=== PATIENT | male | born 1985 | race African-American/Black ===

== ENCOUNTER 2020-01-02 20:55 | Emergency (ER) | payer BC, SELFPAY ==
[2020-01-02 20:59] VITALS: BP 157/105; PULSE 88; RESP 20; TEMP 36.8; O2SAT 100
--- NOTE | 2020-01-02 22:01 | ED.BACK ---
HPI - Back Pain/Injury General Chief Complaint: Back Pain/Injury Stated Complaint: lower back pain Time Seen by Provider: 01/02/20 21:47 Source: patient Mode of arrival: ambulatory Limitations: no limitations History of Present Illness HPI Narrative: This patient is a 34 year old male with history of hypertension and chronic back issues who presents for evaluation of right lower back pain. Patient states he developed right lower back pain getting out of his car today. This pain is non radiating and it is worse with bending and walking. He has not taken anything for his pain. He states he has had this pain many times in the past, and it resolves after he is given a shot of medication in ER. He denies associated nausea, vomiting, fever, chills, abdominal pain, leg weakness, numbness or tingling or urinary complaints. He also reports this morning he woke up with upper lip swelling . He noticed there is a painful bump in his mustache that he believes is a spider bite. He applied ice to his lip so his swelling has resolved. MD elicited complaint: back pain Related Data Home Medications Medication Instructions Recorded Confirmed amlodipine 01/02/20 losartan 01/02/20 Allergies Allergy/AdvReac Type Severity Reaction Status Date / Time No Known Allergies Allergy Verified 01/02/20 21:39 Review of Systems Review of Systems: All systems reviewed & are unremarkable except as noted in HPI and below Constitutional: Constitutional: Denies chills and Denies fever(s) Respiratory: Respiratory: Denies cough and Denies dyspnea Gastrointestinal: Gastrointestinal: Denies abdominal pain, Denies nausea and Denies vomiting Genitourinary: Genitourinary: Reports no additional male genitourinary complaints Musculoskeletal: Musculoskeletal: Reports back pain [facility] Past Medical History Medical History (Updated 01/03/20 @ 00:00 by Dahiana Dasilva) Hypertension Social History Social History (Updated 01/02/20 @ 22:26 by Zabrina Lainez MD) Alcohol intake: never Substance use: never Gender identity (if verbalized by the patient): Male Exam Const: General: alert Orientation/consciousness: patient oriented x3 HENMT: Head: normocephalic and atraumatic Face and sinus: face symmetric Mouth: Yes other (mild mid lip swelling , there is crusted papule mid lip in mustache) Throat: posterior oropharynx normal Eyes: EOM: EOMs intact bilaterally Resp: Effort & Inspection: normal respiratory effort and retractions GI: GI Palp: Yes Soft to palpation, No Tenderness to palpation present (GI), No Guarding due to palpation present (GI), No Rigid due to palpation and Yes No hepatosplenomegaly present Back/Spine/Pelvis: Back: no CVA tenderness Neuro: General: patient oriented x3 and moves all extremities Course Reevaluation(s) Reevaluation #1: I discussed with patient that he will be treated with Toradol as that is what he states he was given in the past that worked. Date: 01/02/20 Time: 22:28 Vital Signs Vital signs: Vital Signs Temperature 98.2 F 01/02/20 20:59 Pulse Rate 88 01/02/20 20:59 Respiratory Rate 20 01/02/20 20:59 Blood Pressure 157/105 H 01/02/20 20:59 Pulse Oximetry 100 01/02/20 20:59 Temperature 98.3 F 01/02/20 22:42 Pulse Rate 84 01/02/20 22:42 Respiratory Rate 18 01/02/20 22:42 Blood Pressure 144/94 H 01/02/20 22:42 Pulse Oximetry 98 01/02/20 22:42 Discharge Plan Discharge Clinical Impression: Strain of lumbar region, Folliculitis Patient Disposition: Home, Self-Care Condition: Stable Instructions: Antibiotic Form, Folliculitis (ED), Back Pain (ED) Additional Instructions: Apply the antibiotics ointment to your mustache. apply warm compress. Follow up with your primary care physician as needed. Prescriptions: New mupirocin 2 % ointment 1 applic TOPICAL TID Qty: 15 RF: 0 ibuprofen 800 mg tablet 800 mg PO TID ND
[2020-01-02] MEDS: KETOROLAC (*BKC) 60 MG/2 ML VIAL IM (22:12)
[2020-01-02] MEDS: diazePAM 5 MG TABLET PO (22:12)
[2020-01-02 22:42] VITALS: BP 144/94; PULSE 84; RESP 18; TEMP 36.8; O2SAT 98
== END 2020-01-02 22:44 | disposition home or self-care (01) ==
PROVIDERS: Emergency Provider General Practice; PCP Emergency Medicine
DX: S39.012A Strain of muscle, fascia and tendon of lower back, initial encounter (principal); X58.XXXA Exposure to other specified factors, initial encounter; L73.9 Follicular disorder, unspecified; I10 Essential (primary) hypertension
CPT/HCPCS: 96372; 99283; A9270; J1885

== ENCOUNTER 2020-12-03 09:04 | Outpatient (CLI) | payer BC, SELFPAY ==
--- NOTE | 2020-12-23 11:04 | WPDHOMESLEEP ---
Sleep Study - Home Unattended Date of Study: 12/03/20 Ordering Provider: Rancho Delcid APRN Interpreting Provider: Yuridia Fish MD Home Sleep Study Type: Apnea Link Air Height: 1.68 m Weight: 129.727 kg Body Mass Index: 46.1 Neck Circumference (inches): 19 [place]: 15 Reason for Sleep Study Witnessed apneas Sleep History Jaime Tyler junior is a 34-year-old man who says that he stops breathing during the night. This is been going on for 1-2 years. He rarely awakens from sleep feeling short of breath. He occasionally awakens at night with heartburn, belching or coughing. He he constantly snores loudly. He rarely has trouble sleeping with a cold. He occasionally wakes up gasping for breath at night. He frequently has breathing problems at night observed by others. He constantly sweats excessively at night. He occasionally has a pounding heartbeat at night. He frequently falls asleep during the day constantly falls asleep involuntarily and rarely falls asleep while driving. He occasionally falls asleep while exerting physical effort. He does not have loss of muscle tone with strong emotion. He occasionally has daytime difficulties due to his excessive sleepiness. He does not feel paralyzed on waking or falling asleep. He does not have vivid dreamlike scenes upon awakening or falling asleep and does not feel afraid to go to sleep. He rarely has nightmares. He constantly remembers his dreams. He occasionally has racing thoughts. He rarely feels sad or depressed. He occasionally has anxiety. He frequently has muscular tension, frequently notices parts of his body jerking and he frequently kicks at night. He does not have crawling or aching feelings in his legs, does not have any kind of leg pain at night. He denies morning jaw pain and does not grind his teeth during sleep. He is not bothered by pain during the day or awakened by pain at night. He rarely wakes up feeling stiff in the morning with sore achy muscles. He never wakes up with pain in the spine. He has headaches, fatigue, uses alcohol heavily and he takes drugs. Normal bedtime is 12 midnight taking 1 minute to fall asleep never waking during the night. He wakes in the morning at 5:00 a.m.. On the weekends his sleep schedule is different, going to bed at 3:00 a.m. and waking at 7:00 a.m.. He estimates getting 4-6 hours of sleep at night. He works a rotating shift. He does not take naps in the afternoon or evening. A short nap is not refreshing. He is drowsy after wakening for 3 hours or longer. He feels better in the afternoon compared to other times of day. Habits: Cigarettes a pack every 3 days. No caffeine. He does consume alcohol and recreational drugs. [facility] Past Medical History Medical History (Updated 12/23/20 @ 11:11 by Yuridia Fish MD) Depression Hypertension Family History Family History Unknown Hypertension Social History Social History (Updated 12/23/20 @ 11:08 by Yuridia Fish MD) Smoking packs per day: 1 Smoking cigarettes per day: 20.0 Years smoked: 12 Smoking pack-years: 12.00 Smoking status: Current every day smoker Tobacco type: cigarettes Alcohol intake: current Substance use: current Substance use type: marijuana Gender identity (if verbalized by the patient): Male Medications Home Medications Medication Instructions Recorded Confirmed Type amlodipine 01/02/20 09/20/20 History losartan 01/02/20 09/20/20 History Sleep Procedure This test was performed using 4 channel monitoring including respiratory effort channel, snoring channel, heart rate channel, and oxygen saturation channel. This study was scored using CMS guidelines. Sleep Architecture Not applicable for home sleep test. Respiratory Analysis Recording duration 7 hours 57 minutes. Evaluation duration 4 hours 16 minutes. The apnea-hypopnea index is 1
[2020-12-23 11:15] VITALS: BMI 46.1
== END 2020-12-04 10:14 | disposition home or self-care (01) ==
LOC: ANHCSM 09:06
PROVIDERS: PCP Emergency Medicine; Visit Provider Nurse Practitioner Family
DX: G47.10 Hypersomnia, unspecified (principal); R06.83 Snoring; G47.33 Obstructive sleep apnea (adult) (pediatric)
CPT/HCPCS: 95806

== ENCOUNTER 2022-02-27 10:37 | Emergency (ER) | payer BC, SELFPAY ==
--- NOTE | ~2022-02-27 | XR_ITS ---
EXAMINATION: XR G tube evaluation w imaging DATE: 02/27/2022 12:12 INDICATION: Gastrostomy tube replacement. TECHNIQUE: A supine view of the abdomen was obtained. COMPARISON: None. FINDINGS: The lower abdomen and right lateral aspect of the abdomen are excluded. There are no dilate d loops of bowel. There is a gastrostomy tube in expected position. There is contrast in the tube and in the stomach. IMPRESSION: 1. Gastrostomy tube in expected position. Reviewed, dictated and finalized at location A.
[2022-02-27 10:39] VITALS: BP 102/71; PULSE 83; RESP 18; O2SAT 93
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
[2022-02-27 11:20] VITALS: BP 119/89; PULSE 87; RESP 20; O2SAT 97
--- NOTE | 2022-02-27 12:32 | PC.NURSE ---
Report given to Rupa at [facility]
[2022-02-27 12:34] VITALS: BP 99/64; PULSE 84; RESP 16; O2SAT 98
== END 2022-02-27 12:52 ==
PROVIDERS: Emergency Provider Emergency Medicine
DX: Z43.1 Encounter for attention to gastrostomy (principal); G82.20 Paraplegia, unspecified; I10 Essential (primary) hypertension; G47.33 Obstructive sleep apnea (adult) (pediatric); F17.210 Nicotine dependence, cigarettes, uncomplicated
CPT/HCPCS: 49465; 99284

== ENCOUNTER 2022-04-12 18:44 | Emergency (ER) | payer BC, SELFPAY ==
[2022-04-12] VITALS (27 sets, daily range): BP systolic 95–138; BP diastolic 67–87; PULSE 80–94; RESP 12–27; TEMP 36.8–37.1; O2SAT 96–100
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
[2022-04-12 20:33] LABS: Influenza A QL RT-PCR Negative (Negative); Influenza B QL RT-PCR Negative (Negative); RSV RNA, RT-PCR Negative (Negative); SARS-CoV-2 RNA PCR Negative
--- NOTE | 2022-04-12 22:01 | PC.NURSE ---
Pt's mother Lyndsay notified of findings and report called to Tony at [phone] at [facility]
== END 2022-04-12 23:34 ==
PROVIDERS: Emergency Provider Emergency Medicine
DX: K56.41 Fecal impaction (principal); Z20.822 Contact with and (suspected) exposure to COVID-19; I10 Essential (primary) hypertension; G47.33 Obstructive sleep apnea (adult) (pediatric); G93.1 Anoxic brain damage, not elsewhere classified; G82.20 Paraplegia, unspecified; S06.9XAS Unspecified intracranial injury with loss of consciousness status unknown, sequela; F17.210 Nicotine dependence, cigarettes, uncomplicated; Z93.1 Gastrostomy status; W34.00XS Accidental discharge from unspecified firearms or gun, sequela
CPT/HCPCS: 74176; 87637; 99284

== ENCOUNTER 2022-07-06 10:22 | Emergency (ER) | payer BC, SELFPAY ==
--- NOTE | ~2022-07-06 | XR_ITS ---
G-tube check CLINICAL HISTORY: Verify G-tube placement FINDINGS: Maintenance Helper Utility Engineer image demonstrates nonspecific bowel gas pattern, with Gastrostomy tube overlying the upper abdomen. Subsequent image taken following administration of 40 cc of Omnipaque 350 G-tube demonstrates opacifi cation of the gastric lumen with delineation of rugal folds. No abnormal extravasation of contrast se en. IMPRESSION: Percutaneous gastrostomy tube is appropriately located within the gastric lumen. Reviewed, dictated and finalized at location . TIC SURGEON IMPRESSION: Percutaneous gastrostomy tube is appropriately located within the gastric lumen .
[2022-07-06 10:24] VITALS: BP 116/82; PULSE 83; RESP 13; TEMP 36.6; O2SAT 99
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
[2022-07-06 11:56] VITALS: BP 116/74; PULSE 78; RESP 17; O2SAT 100
== END 2022-07-06 12:15 ==
LOC: ANHED 11:44
PROVIDERS: Emergency Provider Emergency Medicine
DX: K94.23 Gastrostomy malfunction (principal); G82.20 Paraplegia, unspecified; I10 Essential (primary) hypertension; G47.33 Obstructive sleep apnea (adult) (pediatric); F17.210 Nicotine dependence, cigarettes, uncomplicated
CPT/HCPCS: 49450; 99284

== ENCOUNTER 2022-08-04 11:08 | Emergency (ER) | payer BC, SELFPAY ==
[2022-08-04] VITALS (19 sets, daily range): BP systolic 97–126; BP diastolic 75–101; PULSE 64–91; RESP 13–26; O2SAT 96–100
--- NOTE | ~2022-08-04 | XR_ITS ---
EXAMINATION: XR G tube evaluation w imaging INDICATION: Assess G-tube placement TECHNIQUE: Two supine views of the abdomen are obtained after the administration of 60 cc of Omnipaqu e 350 contrast. COMPARISON: 07/06/2022 FINDINGS: The gastrostomy appears to be within the body of the stomach. Contrast opacifies portions o f the stomach and proximal small bowel. IMPRESSION: 1. Gastrostomy appears to be within the stomach. Reviewed, dictated and finalized at location L.
--- NOTE | 2022-08-04 11:25 | PC.NURSE ---
Per DR. Lainez recieved orders to flush line, unable to aspirate at this time, 10ml flushed with no resistance. Dr. lainez aware at this time.
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
--- NOTE | 2022-08-04 12:57 | PC.NURSE ---
CAlled [facility] at this time at [phone]. Spoke with Humberto, staff who could not get a hold of nursing staff. Humberto stated she could write a note and speak with nurse. This RN told her pt G-tube placement is confirmed via xray, VSS, and facility can use g-tube as needed per Dr. Lainez.
== END 2022-08-04 13:35 ==
PROVIDERS: Emergency Provider General Practice; PCP Internal Medicine
DX: K94.29 Other complications of gastrostomy (principal); I10 Essential (primary) hypertension; G82.20 Paraplegia, unspecified; G47.33 Obstructive sleep apnea (adult) (pediatric); Z87.891 Personal history of nicotine dependence
CPT/HCPCS: 49465; 99284

== ENCOUNTER 2022-09-19 10:06 | Observation (INO) | payer BC, SELFPAY ==
[2022-09-19 10:08] VITALS: BP 136/84; PULSE 82; RESP 16; O2SAT 96
--- NOTE | 2022-09-19 10:37 | PC.NURSE ---
Pt severely contracted in BLE and BUE. Pt in non-verbal.
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
--- NOTE | 2022-09-19 12:00 | PC.NURSE ---
ED staff having difficulty obtaining IV access. HS and EDP made aware.
--- NOTE | 2022-09-19 12:47 | PC.NURSE ---
Admission Note: The patient,Jaime Tyler Jr.,36 y/o, was given written information regarding hospital policies, unit procedures and contact persons, PT unable to comprehend. PT on Room Air, assessment complete, will call Facility for medication list and history. Patient's smoking status: Former smoker.
[2022-09-19] MEDS: SODIUM CHLORIDE 0.9% IV 1,000 ML 100 ML IV CONT ×2 (12:49→23:40)
[2022-09-19 12:55] LABS: Basophils Percent Auto 0.3 % (0.2-1.2); Eosinophils Absolute Auto 0.5 K/mm3 (0-0.3); Eosinophils Percent Auto 6.8 % (0-4.4); Hematocrit 35.2 % (42.0-52.0); Hemoglobin 10.6 g/dL (14.0-18.0); Immature Granulocyte Absolute 0.01 K/mm3 (0.00-0.031); Immature Granulocyte Percent A 0.1 % (0-0.5); Lymphocytes Absolute Auto 1.38 K/mm3 (0.9-3.2); Lymphocytes Percent Auto 18.8 % (18.3-44.2); Mean Corpuscular HGB Conc 30.1 g/dl (32-36); Mean Corpuscular Hemoglobin 24.5 pg (26-34); Mean Corpuscular Volume 81.3 fl (80-100); Mean Platelet Volume 9.1 fl (7.4-10.4); Monocytes Absolute Auto 0.8 K/mm3 (0.1-0.6); Monocytes Percent Auto 11.2 % (2.6-8.5); Neutrophils Absolute Auto 4.6 K/mm3 (1.3-6.7); Neutrophils Percent Auto 62.8 % (45.5-73.1); Platelet Count Result 414 k/mm3 (150-375); Red Blood Count 4.33 M/mm3 (4.6-6.20); Red Cell Distribution Width 14.9 % (11.5-14.5); White Blood Count 7.4 K/mm3 (4.5-10.0)
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
[2022-09-19 13:10] LABS: Anion Gap 9 mmol/L (8-16); Blood Urea Nitrogen 20 mg/dL (9-20); Calcium 9.2 mg/dL (8.4-10.2); Carbon Dioxide 23 mmol/L (22-30); Chloride 105 mmol/L (98-107); Estimated Glomerular Filt Rate > 60; Glucose 82 mg/dL (65-110); Potassium 4.3 mmol/L (3.4-5.0); Sodium 137 mmol/L (137-145)
[2022-09-19 13:11] LABS: INR 1.1; Prothrombin Time 14.9 Seconds (11.1-14.7)
[2022-09-19 13:12] LABS: Partial Thromboplastin Time 37.5 SECONDS (22.3-36.8)
[2022-09-19 13:17] VITALS: BMI 30.2
[2022-09-19 14:00] VITALS: BP 129/81; PULSE 79; RESP 16; TEMP 36.8; O2SAT 97
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
[2022-09-19 21:34] VITALS: BP 105/69; PULSE 81; RESP 14; TEMP 37.4; O2SAT 93
[2022-09-19] MEDS: SCOPOLAMINE 1.5 MG PATCH 1 MG TRANSDERM (23:40)
[2022-09-19] MEDS: levETIRAcetam 1000MG/NACL100ML 1,000 MG/100 ML BAG 400 MG IVPB (23:51)
[2022-09-20 05:48] VITALS: BP 120/82; PULSE 65; RESP 14; TEMP 36.8; O2SAT 96
[2022-09-20 06:46] LABS: Anion Gap 9 mmol/L (8-16); Blood Urea Nitrogen 17 mg/dL (9-20); Carbon Dioxide 23 mmol/L (22-30); Chloride 108 mmol/L (98-107); Estimated CRCL calculation 143 ml/min; Estimated Glomerular Filt Rate > 60; Glucose 70 mg/dL (65-110); Magnesium 1.7 mg/dL (1.6-2.3); Potassium 4.1 mmol/L (3.4-5.0); Sodium 140 mmol/L (137-145)
[2022-09-20 07:01] LABS: Iron 24 ug/dL (49-181)
[2022-09-20 07:10] LABS: Percent Iron Saturation 6 % (20-50)
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
[2022-09-20 07:25] LABS: Thyroid Stimulating Hormone Reflex 0.674 uIU/mL (0.465-4.68)
[2022-09-20 07:51] LABS: Folic Acid > 20.0 ng/mL (2.76->20)
[2022-09-20] MEDS: SODIUM CHLORIDE 0.9% IV 1,000 ML 100 ML IV CONT (09:01)
[2022-09-20] MEDS: levETIRAcetam 1000MG/NACL100ML 1,000 MG/100 ML BAG 400 MG IVPB ×2 (09:01→20:23)
[2022-09-20] MEDS: PANTOPRAZOLE SODIUM IV 40 MG VIAL IV PUSH (09:02)
[2022-09-20 14:00] VITALS: BP 150/86; PULSE 83; RESP 18; TEMP 36.8; O2SAT 93
--- NOTE | 2022-09-20 19:28 | WPDGIPROGNO ---
Progress Note: A&P Assessment and Plan (1) Dislodged gastrostomy tube: Code(s): T85.528A - Displacement of other gastrointestinal prosthetic devices, implants and grafts, initial encounter Status: Acute Assessment and Plan: egd with placement of new g-tube tomorrow no- (2) Neurological dysfunction: Code(s): R29.90 - Unspecified symptoms and signs involving the nervous system Status: Acute Assessment and Plan: non-verbal requires full care (3) Hypertension: Qualifiers: Hypertension type: primary hypertension Qualified Code(s): I10 - Essential (primary) hypertension Code(s): I10 - Essential (primary) hypertension Status: Chronic (4) Paraplegia: Code(s): G82.20 - Paraplegia, unspecified Status: Acute Subjective Date/time seen: 09/20/22 19:28 Interval history: no changes Review of Systems Review of Systems: ROS unobtainable: Yes unobtainable due to mental status Exam Const: Limitations: physical limitations Other: patient nonverbal. eyes open HENMT: Head: normal to inspection Eyes: EOM: EOMs intact bilaterally Neck: Other: old trach Resp: Effort & Inspection: normal respiratory effort Auscultation: clear to auscultation bilaterally Cardio: Rate: regular rate Rhythm: regular rhythm Heart sounds: no murmurs GI: GI Palp: Yes Soft to palpation, No Tenderness to palpation present (GI), No Guarding due to palpation present (GI) and No Rigid due to palpation Auscultation: normal bowel sounds Other: small gastrostomy site with minimal old blood Skin: General skin exam: normal color Neuro: Other: contractures, no movement Extrem: Other: right arm, right leg contractures Objective Data Vital Signs Vital Signs: Vital Signs - 24 hr 09/19/22 21:34 09/19/22 20:00 09/20/22 05:48 Temperature 99.4 F 98.3 F Pulse Rate 81 65 Respiratory Rate 14 14 Blood Pressure 105/69 120/82 Pulse Oximetry 93 96 Oxygen Delivery Room Air 09/20/22 08:00 09/20/22 14:00 Temperature 98.3 F Pulse Rate 83 Respiratory Rate 18 Blood Pressure 150/86 H Pulse Oximetry 93 Oxygen Delivery Room Air Intake/Output Intake/Output: Intake & Output 09/17/22 09/18/22 09/19/22 09/20/22 23:59 23:59 23:59 23:59 Intake Total 1000 1200 Balance 1000 1200 Meds/Results Medications: Active Medications Generic Name Dose Route Start Last Admin Trade Name Freq PRN Reason Stop Dose Admin Sodium Chloride 1,000 mls @ 100 mls/hr 09/19/22 11:00 09/20/22 09:01 Normal Saline Iv IV CONT 100 mls/hr .Q10H JESSA Administration Levetiracetam 1,000 mg in 100 mls @ 400 mls/hr 09/19/22 22:25 09/20/22 09:16 Keppra Iv IVPB Infused Q12HR JESSA Infusion Ondansetron HCl 4 mg 09/19/22 10:56 Ondansetron Inj 4 Mg/2 Ml Vial IV PUSH Q4H PRN Nausea Pantoprazole Sodium 40 mg 09/20/22 09:00 09/20/22 09:02 Pantoprazole Sodium Iv 40 Mg Vial IV PUSH 40 mg QAM JESSA Administration Scopolamine 1 mg 09/19/22 22:25 09/19/22 23:40 Scopolamine 1.5 Mg Patch TRANSDERM 1 mg Q72HR JESSA Administration Labs Labs: Laboratory Results - last 24 hr 09/20/22 05:53 Sodium 140 Potassium 4.1 Chloride 108 H Carbon Dioxide 23 Anion Gap 9 BUN 17 Creatinine 0.70 Estim Creat Clear Calc 143 Estimated GFR > 60 Glucose 70 Calcium 9.0 Magnesium 1.7 Iron 24 L TIBC 375 % Saturation 6 L Ferritin 19.10 Vitamin B12 942.0 H Folate > 20.0 H TSH (Reflex) 0.674 Amg Follow-up Billing Hospital Follow-up Hospital Follow-up: [id number] [facility] Mod
[2022-09-20 22:00] VITALS: BP 164/83; PULSE 78; RESP 14; O2SAT 98
[2022-09-21] VITALS (12 sets, daily range): BP systolic 114–185; BP diastolic 68–105; PULSE 53–89; RESP 14–28; TEMP 36.4–36.7; O2SAT 95–100; BMI 34.0
[2022-09-21] MEDS: SODIUM CHLORIDE 0.9% IV 1,000 ML 100 ML IV CONT ×2 (04:47→20:14)
[2022-09-21 06:31] LABS: Basophils Percent Auto 0.7 % (0.2-1.2); Eosinophils Absolute Auto 0.2 K/mm3 (0-0.3); Eosinophils Percent Auto 3.1 % (0-4.4); Hematocrit 32.8 % (42.0-52.0); Hemoglobin 9.7 g/dL (14.0-18.0); Immature Granulocyte Absolute 0.01 K/mm3 (0.00-0.031); Immature Granulocyte Percent A 0.2 % (0-0.5); Lymphocytes Absolute Auto 1.39 K/mm3 (0.9-3.2); Lymphocytes Percent Auto 22.8 % (18.3-44.2); Mean Corpuscular HGB Conc 29.6 g/dl (32-36); Mean Corpuscular Hemoglobin 24.3 pg (26-34); Mean Platelet Volume 9.5 fl (7.4-10.4); Monocytes Absolute Auto 0.7 K/mm3 (0.1-0.6); Neutrophils Absolute Auto 3.8 K/mm3 (1.3-6.7); Neutrophils Percent Auto 62.2 % (45.5-73.1); Platelet Count Result 385 k/mm3 (150-375); Red Cell Distribution Width 14.7 % (11.5-14.5); White Blood Count 6.1 K/mm3 (4.5-10.0)
[2022-09-21 06:36] LABS: Alanine Aminotransferase 23 U/L (6-50); Albumin Level 3.8 g/dL (3.5-5.1); Alkaline Phosphatase 110 U/L (38-126); Anion Gap 12 mmol/L (8-16); Aspartate Amino Transferase 20 U/L (17-59); Bilirubin,Total 0.6 mg/dL (0.2-1.3); Blood Urea Nitrogen 15 mg/dL (9-20); Carbon Dioxide 20 mmol/L (22-30); Chloride 108 mmol/L (98-107); Estimated CRCL calculation 145 ml/min; Estimated Glomerular Filt Rate > 60; Glucose 65 mg/dL (65-110); Magnesium 1.6 mg/dL (1.6-2.3); Sodium 140 mmol/L (137-145)
[2022-09-21 07:08] LABS: Burr Cells 1+ (NORMAL); Hypochromasia 1+ (NORMAL); Platelet Estimate Adequate (Adequate); Schistocytes None Seen (NORMAL)
[2022-09-21] MEDS: levETIRAcetam 1000MG/NACL100ML 1,000 MG/100 ML BAG 400 MG IVPB ×2 (08:58→20:14)
[2022-09-21] MEDS: PANTOPRAZOLE SODIUM IV 40 MG VIAL IV PUSH (08:59)
[2022-09-21] MEDS: MAGNESIUM SULF 4 GM/WATER100ML 4 GM/100 ML BAG IVPB (10:30)
[2022-09-21] MEDS: LACTATED RINGERS 1,000 ML 150 ML IV CONT (12:46)
--- NOTE | 2022-09-21 13:04 | WPDANESEPPF ---
Anes - Initial Pre Proc Eval Procedure: Operation Date: 09/21/22 13:45 Proposed Procedures p Percutaneous Endoscopic Gastrostomy - Juan A Hall MD Date/Time: 09/21/22 13:04 Surgeon: Marilee Yoo DO Pre Op Diagnosis: g-tube dislodgement Patient Data Age: 36 Gender: M Height: 1.73 m Weight: 101.4 kg Last Vital Signs Temp 97.8 F 09/21/22 12:44 Pulse 83 09/21/22 12:44 Resp 18 09/21/22 12:44 BP 153/95 H 09/21/22 12:44 Pulse Ox 97 09/21/22 12:44 O2 Del Method Room Air 09/21/22 12:44 Allergies Allergy/AdvReac Type Severity Reaction Status Date / Time No Known Allergies Allergy Verified 09/21/22 12:42 Home Medications Medication Instructions Recorded Confirmed Type acetaminophen 1,000 mg oral powder See Rx Instructions .Route 09/19/22 09/19/22 History packet .COMPLEX PRN pain aspirin 81 mg G-tube DAILY 09/19/22 09/19/22 History bisacodyl 5 mg rectal suppository 10 mg RECTAL DAILY PRN Constipation 09/19/22 09/19/22 History carvedilol 12.5 mg tablet 12.5 mg feeding tube BID 09/19/22 09/19/22 History chlorhexidine gluconate 0.12 % 1 applic mucous membrane Q4H 09/19/22 09/19/22 History mouthwash docusate sodium 50 mg/5 mL oral 100 mg feeding tube BID 09/19/22 09/19/22 History liquid famotidine 20 mg tablet 20 mg feeding tube Q12H 09/19/22 09/19/22 History glycopyrrolate 1 mg tablet 1 mg feeding tube Q8H 09/19/22 09/19/22 History lansoprazole 30 mg delayed 30 mg feeding tube DAILY 09/19/22 09/19/22 History release,disintegrating tablet levetiracetam 100 mg/mL oral 1,000 mg feeding tube Q12H 09/19/22 09/19/22 History solution (Keppra) nadolol 40 mg tablet 40 mg feeding tube Q12H 09/19/22 09/19/22 History lcimtsid-jaowpvtwqw-sjwnotvcr 1 applic topical DAILY 09/19/22 09/19/22 History topical packet ondansetron 4 mg disintegrating 4 mg feeding tube Q6H PRN Nausea 09/19/22 09/19/22 History tablet And Vomiting polyethylene glycol 3350 17 17 g feeding tube DAILY 09/19/22 09/19/22 History gram/dose oral powder (Miralax) Constipation psyllium husk 3 gram/5.4 gram oral See Rx Instructions .Route .COMPLEX 09/19/22 09/19/22 History powder (Reguloid (psyllium husk)) scopolamine base 1 mg over 3 days 1 patch topical Q3-4D 09/19/22 09/19/22 History transdermal patch sennosides 8.6 mg tablet (senna) 8.6 mg feeding tube DAILY 09/19/22 09/19/22 History simethicone 125 mg chewable tablet 125 mg PO QID PRN Gastrointestinal 09/19/22 09/19/22 History Spasms Or Cramping Laboratory Tests 09/21/22 05:52 WBC 6.1 K/mm3 (4.5-10.0) RBC 4.00 L M/mm3 (4.6-6.20) Hgb 9.7 L g/dL (14.0-18.0) Hct 32.8 L % (42.0-52.0) MCV 82.0 fl (80-100) MCH 24.3 L pg (26-34) MCHC 29.6 L g/dl (32-36) RDW 14.7 H % (11.5-14.5) Plt Count 385 H k/mm3 (150-375) MPV 9.5 fl (7.4-10.4) Immature Gran % (Auto) 0.2 % (0-0.5) Neut % (Auto) 62.2 % (45.5-73.1) Lymph % (Auto) 22.8 % (18.3-44.2) Hopkins % (Auto) 11.0 H % (2.6-8.5) Eos % (Auto) 3.1 % (0-4.4) Baso % (Auto) 0.7 % (0.2-1.2) Lymph # (Auto) 1.39 K/mm3 (0.9-3.2) Hopkins # (Auto) 0.7 H K/mm3 (0.1-0.6) Eos # (Auto) 0.2 K/mm3 (0-0.3) Baso # (Auto) 0.0 K/mm3 (0.0-0.1) Abs Immat Gran (auto) 0.01 K/mm3 (0.00-0.031) Absolute Neuts (auto) 3.8 K/mm3 (1.3-6.7) Absolute Nucleated RBC 0.0 K/mm3 (0.0-0.012) Nucleated RBC % 0.0 % (0.0-0.2) Platelet Estimate Adequate (Adequate) Hypochromasia 1+ (NORMAL) Tabitha Cells 1+ (NORMAL) Schistocytes None seen (NORMAL) Sodium 140 mmol/L (137-145) Potassium 4.0 mmol/L (3.4-5.0) Chloride 108 H mmol/L (98-107) Carbon Dioxide 20 L mmol/L (22-30) Anion Gap 12 mmol/L (8-16) BUN 15 mg/dL (9-20) Creatinine 0.70 mg/dL (0.7-1.3) Estim Creat Clear Calc 145 ml/min Estimated GFR > 60 (59 - ) Glucose 65
[2022-09-21] MEDS: ceFAZolin SODIUM 1 GM VIAL IV PUSH (13:16)
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
--- NOTE | 2022-09-21 19:36 | PC.NURSE ---
New gtube placed today. Order to restart tube feeding at 1999 at 55ml/hr. Called Tatianna Syed to clarify order. No starting rate or rate increase orders in patients chart. Verbal orders by Tatianna to start jevity 1.5 at 10ml/hr and increase 10 mls every 4 hrs as tolerated until goal rate of 55ml/hr is reached.
[2022-09-21] MEDS: FAMOTIDINE 20 MG TABLET FEED TUBE (20:15)
[2022-09-21] MEDS: carvediloL 12.5 MG TABLET FEED TUBE (20:15)
[2022-09-21] MEDS: DOCUSATE SODIUM LIQ 100 MG/10 ML UDC FEED TUBE (20:15)
[2022-09-21] MEDS: nadoloL 20 MG TABLET 40 MG FEED TUBE (20:15)
--- NOTE | 2022-09-22 00:12 | PC.NURSE ---
Pt has been tolerating tube feeding at 10ml/hr. Tube feeding increased to 20ml/hr per verbal orders from Tatianna Syed. Will check tube feeding status at 0400 to increase rate by 10ml/hr if tolerating well.
[2022-09-22 00:25] LABS: Glucose Point of Care 80 mg/dl (65-105)
[2022-09-22 04:30] VITALS: BP 173/98; PULSE 91; RESP 28; TEMP 36.4; O2SAT 98
[2022-09-22 06:39] LABS: Glucose Point of Care 88 mg/dl (65-105)
[2022-09-22 06:43] LABS: Basophils Percent Auto 0.4 % (0.2-1.2); Eosinophils Absolute Auto 0.1 K/mm3 (0-0.3); Eosinophils Percent Auto 1.4 % (0-4.4); Hematocrit 31.7 % (42.0-52.0); Hemoglobin 9.7 g/dL (14.0-18.0); Immature Granulocyte Absolute 0.01 K/mm3 (0.00-0.031); Immature Granulocyte Percent A 0.1 % (0-0.5); Lymphocytes Absolute Auto 0.98 K/mm3 (0.9-3.2); Lymphocytes Percent Auto 13.4 % (18.3-44.2); Mean Corpuscular HGB Conc 30.6 g/dl (32-36); Mean Corpuscular Hemoglobin 24.4 pg (26-34); Mean Corpuscular Volume 79.6 fl (80-100); Mean Platelet Volume 8.8 fl (7.4-10.4); Monocytes Absolute Auto 0.8 K/mm3 (0.1-0.6); Monocytes Percent Auto 11.2 % (2.6-8.5); Neutrophils Absolute Auto 5.4 K/mm3 (1.3-6.7); Neutrophils Percent Auto 73.5 % (45.5-73.1); Platelet Count Result 365 k/mm3 (150-375); Red Blood Count 3.98 M/mm3 (4.6-6.20); Red Cell Distribution Width 14.7 % (11.5-14.5); White Blood Count 7.3 K/mm3 (4.5-10.0)
[2022-09-22] MEDS: SODIUM CHLORIDE 0.9% IV 1,000 ML 100 ML IV CONT (06:52)
[2022-09-22 06:57] LABS: Alanine Aminotransferase 20 U/L (6-50); Albumin Level 3.7 g/dL (3.5-5.1); Alkaline Phosphatase 114 U/L (38-126); Anion Gap 11 mmol/L (8-16); Aspartate Amino Transferase 18 U/L (17-59); Bilirubin,Total 0.4 mg/dL (0.2-1.3); Blood Urea Nitrogen 12 mg/dL (9-20); Calcium 8.7 mg/dL (8.4-10.2); Carbon Dioxide 20 mmol/L (22-30); Chloride 108 mmol/L (98-107); Estimated CRCL calculation 143 ml/min; Estimated Glomerular Filt Rate > 60; Glucose 106 mg/dL (65-110); Magnesium 1.9 mg/dL (1.6-2.3); Potassium 3.7 mmol/L (3.4-5.0); Sodium 139 mmol/L (137-145)
--- NOTE | 2022-09-22 07:05 | WPDANESPN ---
Anes - Prog Note Post-Op Date/Time: 09/22/22 07:05 Cardiovascular status: normal Respiratory status: normal Airway patency: baseline Mental status: baseline Post-Op hydration status: normal Vital Signs: Last Vital Signs Temp 97.5 F L 09/22/22 04:30 Pulse 91 09/22/22 04:30 Resp 28 H 09/22/22 04:30 BP 173/98 H 09/22/22 04:30 Pulse Ox 98 09/22/22 04:30 O2 Del Method Room Air 09/21/22 20:00 Pain Score (VAS): 0 I/O: Intake & Output 09/21/22 09/21/22 09/22/22 15:59 23:59 07:59 Intake Total 1200 1000 Balance 1200 1000 Laboratory Tests 09/22/22 06:25 09/22/22 06:25 09/21/22 09/21/22 09/22/22 05:52 23:55 06:00 WBC 6.1 RBC 4.00 L Hgb 9.7 L Hct 32.8 L MCV 82.0 MCH 24.3 L MCHC 29.6 L RDW 14.7 H Plt Count 385 H MPV 9.5 Immature Gran % (Auto) 0.2 Neut % (Auto) 62.2 Lymph % (Auto) 22.8 Isabela % (Auto) 11.0 H Eos % (Auto) 3.1 Baso % (Auto) 0.7 Lymph # (Auto) 1.39 Isabela # (Auto) 0.7 H Eos # (Auto) 0.2 Baso # (Auto) 0.0 Abs Immat Gran (auto) 0.01 Absolute Neuts (auto) 3.8 Absolute Nucleated RBC 0.0 Nucleated RBC % 0.0 Platelet Estimate Adequate Hypochromasia 1+ Tabitha Cells 1+ Schistocytes None seen Sodium Potassium Chloride Carbon Dioxide Anion Gap BUN Creatinine Estim Creat Clear Calc Estimated GFR Glucose POC Capillary Glucose 80 88 Calcium Magnesium Total Bilirubin AST ALT Alkaline Phosphatase Total Protein Albumin 09/22/22 06:25 WBC 7.3 RBC 3.98 L Hgb 9.7 L Hct 31.7 L MCV 79.6 L MCH 24.4 L MCHC 30.6 L RDW 14.7 H Plt Count 365 MPV 8.8 Immature Gran % (Auto) 0.1 Neut % (Auto) 73.5 H Lymph % (Auto) 13.4 L Isabela % (Auto) 11.2 H Eos % (Auto) 1.4 Baso % (Auto) 0.4 Lymph # (Auto) 0.98 Isabela # (Auto) 0.8 H Eos # (Auto) 0.1 Baso # (Auto) 0.0 Abs Immat Gran (auto) 0.01 Absolute Neuts (auto) 5.4 Absolute Nucleated RBC 0.0 Nucleated RBC % 0.0 Platelet Estimate Hypochromasia Tabitha Cells Schistocytes Sodium 139 Potassium 3.7 Chloride 108 H Carbon Dioxide 20 L Anion Gap 11 BUN 12 Creatinine 0.70 Estim Creat Clear Calc 143 Estimated GFR > 60 Glucose 106 POC Capillary Glucose Calcium 8.7 Magnesium 1.9 Total Bilirubin 0.4 AST 18 ALT 20 Alkaline Phosphatase 114 Total Protein 7.0 Albumin 3.7 Post-procedural complaints: none Patient Feedback: Patient satisfied with anesthetic care.
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
[2022-09-22] MEDS: DOCUSATE SODIUM LIQ 100 MG/10 ML UDC FEED TUBE (09:23)
[2022-09-22] MEDS: FAMOTIDINE 20 MG TABLET FEED TUBE (09:23)
[2022-09-22 09:24] VITALS: PULSE 91
[2022-09-22] MEDS: SCOPOLAMINE 1.5 MG PATCH 1 MG TRANSDERM (09:24)
[2022-09-22] MEDS: nadoloL 20 MG TABLET 40 MG FEED TUBE (09:24)
[2022-09-22] MEDS: carvediloL 12.5 MG TABLET FEED TUBE (09:24)
[2022-09-22] MEDS: PANTOPRAZOLE SODIUM IV 40 MG VIAL IV PUSH (09:25)
[2022-09-22] MEDS: levETIRAcetam 1000MG/NACL100ML 1,000 MG/100 ML BAG 400 MG IVPB (09:26)
[2022-09-22] MEDS: FERROUS SULFATE LIQUID 325 MG/7.4 ML ELIXIR PO (09:32)
[2022-09-22 11:01] LABS: EDCOVIDSCREEN Negative (Negative)
--- NOTE | 2022-09-22 11:34 | PCNFU ---
Nutrition Follow-Up Complete: Inadequate energy intake related to NPO status, replacement of dislodged PEG tube as evidenced by need for full tube feeding. Goal:Tolerate tube feeding at goal rate Pt is meeting goal. Pt current nutrition is Jevity 1.5 @ 55ml/hr, 300ml flush q 4 hrs. Nutrition recommendation: continue with current plan of care Last recorded weight is 99.1 kg. Bowel Motility: +BM 09/22 Labs Reviewed: Hgb:9.7, HCT:31.7 Meds Noted: protonix, zofran Skin: WNL Additional Notes: Pt continues on tube feedings. Tolerating and providing 1815kcals, 77g protein, 2917ml free water. Agree with orders. Monitoring tolerance, plan of care Follow up Wednesday and Wednesday per policy
[2022-09-22 11:46] LABS: Glucose Point of Care 127 mg/dl (65-105)
== END 2022-09-22 13:30 ==
LOC: ANHED 10:13 → ANH3MEDSUR 18:09
PROVIDERS: Internal Medicine Gastroenterology; Nurse Practitioner; Physician Assistant; Admitting Provider Student in an Organized Health Care Education/Training Program; Emergency Provider Emergency Medicine; PCP Internal Medicine; Visit Provider Chiropractor
PROC: 0DH63UZ Insertion of Feeding Device into Stomach, Percutaneous Approach (ICD-10-PCS; CPT 43246; principal; 2022-09-21 13:45)
DX: T85.528A Displacement of other gastrointestinal prosthetic devices, implants and grafts, initial encounter (principal); D64.9 Anemia, unspecified; I10 Essential (primary) hypertension; R29.90 Unspecified symptoms and signs involving the nervous system; I69.320 Aphasia following cerebral infarction; G82.20 Paraplegia, unspecified; Z87.828 Personal history of other (healed) physical injury and trauma; Z98.890 Other specified postprocedural states; F32.A Depression, unspecified; G47.33 Obstructive sleep apnea (adult) (pediatric); Z87.891 Personal history of nicotine dependence; Z79.1 Long term (current) use of non-steroidal anti-inflammatories (NSAID); Z79.82 Long term (current) use of aspirin; Z79.899 Other long term (current) drug therapy; Z82.49 Family history of ischemic heart disease and other diseases of the circulatory system
CPT/HCPCS: 36415; 43246; 80048; 80053; 82607; 82728; 82746; 82948; 83540; 83550; 83735; 84443; 85025; 85610; 85730; 87426; 96361; 96365; 96366; 96374; 96375; 96376; 99285; A4248; A9270; C9113; C9803; G0378; G0379; J0690; J1953; J2001; J2704; J3475; J7030; J7120

== ENCOUNTER 2023-05-12 21:06 | Inpatient (IN) | payer BC, SELFPAY ==
--- NOTE | ~2023-05-12 | XR_ITS ---
Portable chest x-ray Comparison: 05/17/2023 Clinical History: Pneumonia Findings: There is mild haziness in the right midlung. Left lung clear. Cardiomediastinal silhouett e is stable. Bones and soft tissues are unremarkable. Impression: Mild haziness right midlung, which could reflect subtle pneumonia. Reviewed, dictated and finalized at location . USSION TUNER Impression: Mild haziness right midlung, which could reflect subtle pneumonia.
--- NOTE | ~2023-05-12 | CT_ITS ---
EXAMINATION: CT chest abdomen pelvis w con DATE: 05/12/2023 23:14 INDICATION: N/V, aspiration . TECHNIQUE: Computed tomography (CT) of the chest, abdomen, and pelvis was performed with 100 mL Omnip aque-350 intravenous contrast. Automated exposure control and iterative reconstruction technique were employed. The dose-length product was 1697.09 mGy-cm. COMPARISON: CT abdomen pelvis 04/12/2022 FINDINGS: Exam limited by nonstandard positioning and respiratory motion. CHEST: Thoracic aorta: No significant dilation or calcification. Lung parenchyma and airways: Motion artifact. Minimal dependent atelectasis. No airway debris. Old tr acheostomy tract. Thoracic inlet, axillae and chest wall: No thyroid or soft tissue mass. No axillary lymphadenopathy. Mediastinum: No mass or lymphadenopathy. Heart and pericardium: Normal heart size. No pericardial effusion. Coronary artery calcifications: . Pleura: No effusion or mass. Thoracic bones: No acute osseous finding in the chest. ABDOMEN/PELVIS: Liver: Normal. Biliary/Gallbladder: Gallbladder is partially contracted without inflammatory change. No bile duct di lation. Pancreas: No mass or duct dilation. Spleen: Normal. Adrenals:No mass. Kidneys: Simple 1.8 cm right upper pole cyst, partially obscured by motion artifact. No obstructing c alcification. No hydronephrosis. GI tract: G-tube, in good position. Uncomplicated appearing small bowel anastomosis. The rectum is di lated up to 9 cm by formed stool. A separate focus of feces dilates the distal sigmoid to 5.4 cm. No wall thickening or surrounding inflammatory change. No small bowel dilation. The appendix is not conf idently visualized. Mesentery/Peritoneum: No ascites, mass, or free air. Retroperitoneum: No mass Pelvis: Pelvic organs are within normal limits Soft Tissues: Anterior abdominal wall diastases containing unobstructed bowel. Abdominopelvic bones: No acute osseous finding in the abdomen/pelvis. IMPRESSION: Minimal dependent atelectasis. Fecal impaction. Reviewed, dictated and finalized at location K. ACTOR
--- NOTE | ~2023-05-12 | XR_ITS ---
EXAMINATION: XR chest 1V portable DATE: 05/17/2023 05:30 INDICATION: Shortness of breath. TECHNIQUE: A single frontal view of the chest was obtained on 2 radiographs. COMPARISON: Chest 2 views 01/17/2016, chest CT 05/12/2023 FINDINGS: The patient is rotated to his right. There is elevation of right hemidiaphragm. There is mi ld atelectasis at right lung base. No pleural effusion or pneumothorax. The heart size is normal. IMPRESSION: 1. Elevation of right hemidiaphragm with mild atelectasis at right lung base. Reviewed, dictated and finalized at location A. IT ASSOCIATE
--- NOTE | ~2023-05-12 | XR_ITS ---
EXAMINATION: XR chest 1V portable INDICATION: History of pneumonia TECHNIQUE: Portable AP chest at 1400 hours COMPARISON: 05/21/2023 FINDINGS: The lungs are free of acute opacities. No pleural effusion or pneumothorax. The cardiomedia stinal silhouette is normal. IMPRESSION: 1. No acute cardiopulmonary abnormality. Reviewed, dictated and finalized at location F. TRIC SWITCH REPAIRER
[2023-05-12 21:37] VITALS: BP 159/99; PULSE 102; RESP 20; TEMP 36.6; O2SAT 94
[2023-05-12] MEDS: ONDANSETRON INJ 4 MG/2 ML VIAL IV PUSH (22:16)
[2023-05-12] MEDS: SODIUM CHLORIDE 0.9% IV 1,000 ML 999 ML IV CONT (22:16)
[2023-05-12 22:25] LABS: Basophils Percent Auto 0.6 % (0.2-1.2); Eosinophils Absolute Auto 0.2 K/mm3 (0-0.3); Eosinophils Percent Auto 2.7 % (0-4.4); Hematocrit 43.8 % (42.0-52.0); Hemoglobin 13.5 g/dL (14.0-18.0); Immature Granulocyte Absolute 0.02 K/mm3 (0.00-0.031); Immature Granulocyte Percent A 0.3 % (0-0.5); Lymphocytes Percent Auto 21.1 % (18.3-44.2); Mean Corpuscular HGB Conc 30.8 g/dl (32-36); Mean Corpuscular Hemoglobin 24.6 pg (26-34); Mean Corpuscular Volume 79.9 fl (80-100); Mean Platelet Volume 9.5 fl (7.4-10.4); Monocytes Absolute Auto 0.7 K/mm3 (0.1-0.6); Monocytes Percent Auto 10.4 % (2.6-8.5); Neutrophils Absolute Auto 4.3 K/mm3 (1.3-6.7); Neutrophils Percent Auto 64.9 % (45.5-73.1); Platelet Count Result 372 k/mm3 (150-375); Red Blood Count 5.48 M/mm3 (4.6-6.20); Red Cell Distribution Width 14.5 % (11.5-14.5); White Blood Count 6.6 K/mm3 (4.5-10.0)
[2023-05-12 22:35] VITALS: BP 146/102; RESP 22; O2SAT 96
[2023-05-12 22:37] LABS: Alanine Aminotransferase 16 U/L (6-50); Albumin Level 4.2 g/dL (3.5-5.1); Alkaline Phosphatase 133 U/L (38-126); Anion Gap 9 mmol/L (8-16); Aspartate Amino Transferase 24 U/L (17-59); Bilirubin,Total 0.4 mg/dL (0.2-1.3); Blood Urea Nitrogen 16 mg/dL (9-20); Calcium 9.7 mg/dL (8.4-10.2); Carbon Dioxide 24 mmol/L (22-30); Chloride 104 mmol/L (98-107); Estimated Glomerular Filt Rate > 60; Glucose 92 mg/dL (65-110); Lipase 198 U/L (23-300); Potassium 3.9 mmol/L (3.4-5.0); Sodium 137 mmol/L (137-145)
[2023-05-12 22:38] LABS: Lactic Acid Reflex 0.8 mmol/L (0.7-2.0)
[2023-05-12 23:00] LABS: Influenza A QL RT-PCR Negative (Negative); Influenza B QL RT-PCR Negative (Negative); RSV RNA, RT-PCR Negative (Negative); SARS-CoV-2 RNA PCR Negative (Negative)
[2023-05-13] VITALS (48 sets, daily range): BP systolic 100–148; BP diastolic 71–106; PULSE 77–126; RESP 11–29; TEMP 36.4–36.9; O2SAT 90–100
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
[2023-05-13] MEDS: SODIUM CHLORIDE 0.9% IV 1,000 ML 999 ML IV CONT (00:48)
[2023-05-13] MEDS: AMPICILLIN SULB 3 GM/NS 100 ML 3 GM/100 ML VIAL IVPB ×4 (00:49→18:51)
[2023-05-13 01:46] LABS: Appearance Urine Clear (Clear); Bilirubin Urine Negative (Negative); Blood Urine Negative (Negative); Color Urine Yellow (Yellow); Glucose Urine UA Negative (Negative); Ketones Urine Negative (Negative); Leukocyte Esterase Ur Negative LEU/UL (Negative); Nitrate Urine Negative (Negative); Protein Urine Negative (Negative); pH Urine 7.5 (5.0-9.0)
[2023-05-13 01:53] LABS: Add Urine Microscopic? NO; Specific Grav Ur 1.063 (1.001-1.035)
[2023-05-13] MEDS: ONDANSETRON INJ 4 MG/2 ML VIAL IV PUSH ×2 (02:50→09:23)
[2023-05-13] MEDS: SODIUM CHLORIDE 0.9% IV 1,000 ML 100 ML IV CONT ×2 (02:54→14:51)
--- NOTE | 2023-05-13 06:44 | PC.NURSE ---
This RN attempted to call patient's mother to give update, but mother did not answer.
--- NOTE | 2023-05-13 09:08 | PC.NURSE ---
Pt O2 87 this RN suctioned pt and pt O2 96%.
--- NOTE | 2023-05-13 09:24 | PC.NURSE ---
Assumed care of pt at 0700. Pt has two IVs placed, 20 in L wrist and 22 L foot.
--- NOTE | 2023-05-13 09:42 | PC.NURSE ---
This RN updated Cyrus, sister listed in contact, on pt.
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
--- NOTE | 2023-05-13 10:52 | PC.NURSE ---
Called Pharmacy for medication.
[2023-05-13] MEDS: BISACODYL 10 MG SUPPOSITORY RECTAL (11:33)
--- NOTE | 2023-05-13 12:58 | PC.NURSE ---
This patient, Jaime Tyler Jr., was admitted to [facility] Surg Room 322-01 on 05/13/23 @ 1115. Patient/family oriented to hospital policies and general routines including ID bracelet, bed and alarms, visiting hours, pain management, procedures, bathroom and other care routines, personal items, smoking policy, room service/diet, and visiting hours. Information on how to activate the Rapid Response Team has been discussed. Patient/Family are encouraged to report perceived risks to care and to ask questions if they do not understand what they are told or what they should do.
--- NOTE | 2023-05-13 14:14 | PCSTNOTE ---
Bedside Swallow Evaluation order is cancelled as AIDA Wong, reported that patient is strictly NPO and g-tube fed and should have nothing by mouth. Therapist contacted Dr. Mukherjee to let him know of this status.
--- NOTE | 2023-05-13 16:10 | PC.NURSE ---
Patient's current tube feedings @ home: Isosource 1.5 QID 0800, 1200, 1600, 2000. MD to consult Video Games Mechanic.
[2023-05-13] MEDS: ALBUTEROL SULFATE NEB 2.5 MG/3 ML INH INHALATION (20:40)
[2023-05-13] MEDS: IPRATROPIUM BR 0.02% INH SOLN 0.5 MG/2.5 ML VIAL INHALATION (20:40)
[2023-05-14] VITALS (11 sets, daily range): BP systolic 143–148; BP diastolic 83–110; PULSE 82–107; RESP 18–24; TEMP 36.1–37.1; O2SAT 94–99; BMI 27.8
[2023-05-14] MEDS: AMPICILLIN SULB 3 GM/NS 100 ML 3 GM/100 ML VIAL IVPB ×5 (00:23→23:13)
[2023-05-14 00:26] LABS: MRSA (PCR) NOT DETECTED (NOT DETECTE)
[2023-05-14] MEDS: IPRATROPIUM BR 0.02% INH SOLN 0.5 MG/2.5 ML VIAL INHALATION ×4 (02:59→21:25)
[2023-05-14] MEDS: ALBUTEROL SULFATE NEB 2.5 MG/3 ML INH INHALATION ×4 (02:59→21:25)
[2023-05-14] MEDS: SODIUM CHLORIDE 0.9% IV 1,000 ML 100 ML IV CONT ×3 (03:11→17:49)
[2023-05-14] MEDS: DORNASE ALFA INH SOLN 1 MG/ML 2.5 ML AMP 2.5 MG INHALATION ×2 (08:21→21:26)
[2023-05-14] MEDS: carvediloL 12.5 MG TABLET FEED TUBE ×2 (09:04→17:45)
[2023-05-14] MEDS: SENNOSIDES 8.6 MG TABLET FEED TUBE (09:04)
[2023-05-14] MEDS: ASPIRIN 81 MG CHEWABLE TABLET FEED TUBE (09:04)
[2023-05-14] MEDS: polyethylene glycoL 3350 17 GM POWD.PACK FEED TUBE (09:05)
[2023-05-14] MEDS: PANTOPRAZOLE SODIUM IV 40 MG VIAL IV PUSH (09:05)
[2023-05-14] MEDS: SCOPOLAMINE 1 MG PATCH 1 PATCH TRANSDERM (09:05)
[2023-05-14] MEDS: FERROUS SULFATE LIQUID 325 MG/7.4 ML ELIXIR PO ×2 (09:05→17:45)
[2023-05-14] MEDS: GLYCOPYRROLATE 1 MG TABLET FEED TUBE ×3 (09:06→21:02)
[2023-05-14] MEDS: ENOXAPARIN 40 MG/0.4 ML SYRINGE SUB-Q (09:06)
[2023-05-14] MEDS: DOCUSATE SODIUM LIQ 100 MG/10 ML UDC FEED TUBE (09:06)
[2023-05-14] MEDS: VANCOMYCIN 1,000 MG/NS 250 ML 1,000 MG/250 ML BAG 250 MG IVPB (09:07)
[2023-05-14] MEDS: VANCOMYCIN 1,250 MG/NS 250 ML 1,250 MG/250 ML BAG 166.67 MG IVPB (09:07)
[2023-05-14 14:08] LABS: Basophils Percent Auto 0.4 % (0.2-1.2); Eosinophils Absolute Auto 0.2 K/mm3 (0-0.3); Eosinophils Percent Auto 2.6 % (0-4.4); Hematocrit 38.9 % (42.0-52.0); Hemoglobin 11.2 g/dL (14.0-18.0); Immature Granulocyte Absolute 0.02 K/mm3 (0.00-0.031); Immature Granulocyte Percent A 0.3 % (0-0.5); Lymphocytes Absolute Auto 1.12 K/mm3 (0.9-3.2); Lymphocytes Percent Auto 16.4 % (18.3-44.2); Mean Corpuscular HGB Conc 28.8 g/dl (32-36); Mean Corpuscular Hemoglobin 24.5 pg (26-34); Mean Corpuscular Volume 84.9 fl (80-100); Mean Platelet Volume 9.7 fl (7.4-10.4); Monocytes Absolute Auto 0.7 K/mm3 (0.1-0.6); Monocytes Percent Auto 9.5 % (2.6-8.5); Neutrophils Absolute Auto 4.8 K/mm3 (1.3-6.7); Neutrophils Percent Auto 70.8 % (45.5-73.1); Platelet Count Result 333 k/mm3 (150-375); Red Blood Count 4.58 M/mm3 (4.6-6.20); Red Cell Distribution Width 15.1 % (11.5-14.5); White Blood Count 6.8 K/mm3 (4.5-10.0)
[2023-05-14 14:21] LABS: Alanine Aminotransferase 13 U/L (6-50); Albumin Level 3.5 g/dL (3.5-5.1); Alkaline Phosphatase 99 U/L (38-126); Anion Gap 10 mmol/L (8-16); Aspartate Amino Transferase 18 U/L (17-59); Bilirubin,Total 0.5 mg/dL (0.2-1.3); Blood Urea Nitrogen 8 mg/dL (9-20); Calcium 9.1 mg/dL (8.4-10.2); Carbon Dioxide 19 mmol/L (22-30); Chloride 112 mmol/L (98-107); Estimated CRCL calculation 153 ml/min; Estimated Glomerular Filt Rate > 60; Glucose 73 mg/dL (65-110); Magnesium 2.1 mg/dL (1.6-2.3); Sodium 141 mmol/L (137-145)
[2023-05-14 15:00] LABS: Platelet Estimate Adequate (Adequate)
[2023-05-14 15:01] LABS: Anisocytosis 1+ (NORMAL); Ovalocytes 1+ (NORMAL); Poikilocytosis 1+ (NORMAL); Schistocytes None Seen (NORMAL)
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
[2023-05-14] MEDS: VANCOMYCIN 1,500 MG/NS 500 ML 1,500 MG/500 ML BAG 250 MG IVPB (20:23)
--- NOTE | 2023-05-14 21:21 | PC.NURSE ---
suction patient with true several times, called respiratory for ET suctioning for patients secretions.
[2023-05-15] VITALS (9 sets, daily range): BP systolic 129–148; BP diastolic 88–100; PULSE 68–88; RESP 13–22; TEMP 36.4–37.5; O2SAT 95–99
[2023-05-15] MEDS: IPRATROPIUM BR 0.02% INH SOLN 0.5 MG/2.5 ML VIAL INHALATION ×4 (03:22→21:08)
[2023-05-15] MEDS: ALBUTEROL SULFATE NEB 2.5 MG/3 ML INH INHALATION ×4 (03:23→21:08)
[2023-05-15] MEDS: SODIUM CHLORIDE 0.9% IV 1,000 ML 100 ML IV CONT (04:28)
[2023-05-15] MEDS: AMPICILLIN SULB 3 GM/NS 100 ML 3 GM/100 ML VIAL IVPB ×3 (05:06→17:01)
[2023-05-15] MEDS: GLYCOPYRROLATE 1 MG TABLET FEED TUBE ×3 (05:07→21:01)
[2023-05-15 06:23] LABS: Basophils Absolute Auto 0.1 K/mm3 (0.0-0.1); Basophils Percent Auto 0.8 % (0.2-1.2); Eosinophils Absolute Auto 0.3 K/mm3 (0-0.3); Eosinophils Percent Auto 4.1 % (0-4.4); Hematocrit 38.7 % (42.0-52.0); Hemoglobin 11.2 g/dL (14.0-18.0); Immature Granulocyte Absolute 0.01 K/mm3 (0.00-0.031); Immature Granulocyte Percent A 0.2 % (0-0.5); Lymphocytes Absolute Auto 1.08 K/mm3 (0.9-3.2); Lymphocytes Percent Auto 17.1 % (18.3-44.2); Mean Corpuscular HGB Conc 28.9 g/dl (32-36); Mean Corpuscular Hemoglobin 24.8 pg (26-34); Mean Corpuscular Volume 85.6 fl (80-100); Mean Platelet Volume 9.8 fl (7.4-10.4); Monocytes Absolute Auto 0.7 K/mm3 (0.1-0.6); Monocytes Percent Auto 11.3 % (2.6-8.5); Neutrophils Absolute Auto 4.2 K/mm3 (1.3-6.7); Neutrophils Percent Auto 66.5 % (45.5-73.1); Platelet Count Result 313 k/mm3 (150-375); Red Blood Count 4.52 M/mm3 (4.6-6.20); White Blood Count 6.3 K/mm3 (4.5-10.0)
[2023-05-15 06:43] LABS: Alanine Aminotransferase 12 U/L (6-50); Albumin Level 3.5 g/dL (3.5-5.1); Alkaline Phosphatase 95 U/L (38-126); Anion Gap 9 mmol/L (8-16); Aspartate Amino Transferase 16 U/L (17-59); Bilirubin,Total 0.5 mg/dL (0.2-1.3); Blood Urea Nitrogen 7 mg/dL (9-20); Calcium 8.9 mg/dL (8.4-10.2); Carbon Dioxide 20 mmol/L (22-30); Chloride 113 mmol/L (98-107); Estimated CRCL calculation 153 ml/min; Estimated Glomerular Filt Rate > 60; Glucose 64 mg/dL (65-110); Magnesium 1.9 mg/dL (1.6-2.3); Potassium 3.9 mmol/L (3.4-5.0); Sodium 142 mmol/L (137-145)
[2023-05-15] MEDS: VANCOMYCIN 1,500 MG/NS 500 ML 1,500 MG/500 ML BAG 250 MG IVPB (08:52)
[2023-05-15] MEDS: ENOXAPARIN 40 MG/0.4 ML SYRINGE SUB-Q (08:52)
[2023-05-15] MEDS: PANTOPRAZOLE SODIUM IV 40 MG VIAL IV PUSH (08:52)
[2023-05-15] MEDS: carvediloL 12.5 MG TABLET FEED TUBE ×2 (08:53→17:01)
[2023-05-15] MEDS: DOCUSATE SODIUM LIQ 100 MG/10 ML UDC FEED TUBE (08:53)
[2023-05-15] MEDS: polyethylene glycoL 3350 17 GM POWD.PACK FEED TUBE (08:53)
[2023-05-15] MEDS: ASPIRIN 81 MG CHEWABLE TABLET FEED TUBE (08:53)
[2023-05-15] MEDS: SENNOSIDES 8.6 MG TABLET FEED TUBE (08:57)
[2023-05-15 09:32] LABS: Glucose Point of Care 62 mg/dl (65-105)
[2023-05-15] MEDS: DEXTROSE 50% 25 GM/50 ML SYRINGE IV PUSH (09:35)
[2023-05-15] MEDS: DORNASE ALFA INH SOLN 1 MG/ML 2.5 ML AMP 2.5 MG INHALATION ×2 (10:07→21:08)
[2023-05-15 10:23] LABS: Glucose Point of Care 85 mg/dl (65-105)
--- NOTE | 2023-05-15 10:52 | PCDIET ---
Nursing called regarding tube feedings recommendations: substituting Jevity 1.5- Bolus 237 ml, 8 oz container 6x per day. Total 2130 kcal, 91 g protein, 1080 ml free water. Flush 150 ml q 4 hours for total water 1980 ml/day. Will continue to monitor every Wednesday and Wednesday.
[2023-05-15 12:09] LABS: Glucose Point of Care 73 mg/dl (65-105)
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
[2023-05-15] MEDS: FERROUS SULFATE LIQUID 325 MG/7.4 ML ELIXIR PO (17:01)
--- NOTE | 2023-05-15 21:05 | PC.NURSE ---
vancomycin trough, awaiting results
[2023-05-15 21:40] LABS: Vancomycin Trough 21.4 ug/mL (10.0-20.0)
--- NOTE | 2023-05-15 21:55 | PC.NURSE ---
vancomycin trough 21.4 dose decrease to 1250 mg IV q12hrs starts at 0500 05/16/23
[2023-05-16] VITALS (15 sets, daily range): BP systolic 138–162; BP diastolic 85–97; PULSE 70–101; RESP 14–24; TEMP 36.4–37.1; O2SAT 97–100
[2023-05-16 00:03] LABS: Glucose Point of Care 86 mg/dl (65-105)
[2023-05-16] MEDS: IPRATROPIUM BR 0.02% INH SOLN 0.5 MG/2.5 ML VIAL INHALATION ×4 (03:20→21:54)
[2023-05-16] MEDS: ALBUTEROL SULFATE NEB 2.5 MG/3 ML INH INHALATION ×4 (03:20→21:55)
[2023-05-16] MEDS: VANCOMYCIN 1,250 MG/NS 250 ML 1,250 MG/250 ML BAG 166.67 MG IVPB (04:14)
[2023-05-16] MEDS: GLYCOPYRROLATE 1 MG TABLET FEED TUBE ×2 (05:26→13:08)
[2023-05-16] MEDS: AMPICILLIN SULB 3 GM/NS 100 ML 3 GM/100 ML VIAL IVPB ×3 (05:55→11:08)
[2023-05-16 06:05] LABS: Glucose Point of Care 127 mg/dl (65-105)
[2023-05-16 06:46] LABS: Estimated CRCL calculation 153 ml/min; Estimated Glomerular Filt Rate > 60
[2023-05-16] MEDS: DORNASE ALFA INH SOLN 1 MG/ML 2.5 ML AMP 2.5 MG INHALATION ×2 (08:41→21:59)
[2023-05-16] MEDS: polyethylene glycoL 3350 17 GM POWD.PACK FEED TUBE (09:10)
[2023-05-16] MEDS: ENOXAPARIN 40 MG/0.4 ML SYRINGE SUB-Q (09:10)
[2023-05-16] MEDS: DOCUSATE SODIUM LIQ 100 MG/10 ML UDC FEED TUBE (09:15)
[2023-05-16] MEDS: FERROUS SULFATE LIQUID 325 MG/7.4 ML ELIXIR PO ×2 (09:16→16:31)
[2023-05-16] MEDS: PANTOPRAZOLE SODIUM IV 40 MG VIAL IV PUSH (09:18)
[2023-05-16] MEDS: ASPIRIN 81 MG CHEWABLE TABLET FEED TUBE (09:19)
[2023-05-16] MEDS: carvediloL 12.5 MG TABLET FEED TUBE ×2 (09:19→16:31)
[2023-05-16] MEDS: SENNOSIDES 8.6 MG TABLET FEED TUBE (09:19)
[2023-05-16 13:12] LABS: Glucose Point of Care 89 mg/dl (65-105)
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
[2023-05-16] MEDS: CEFEPIME 2 GM/NS 50 ML 2 GM/50 ML BAG IVPB ×2 (14:04→21:42)
[2023-05-16 18:34] LABS: Glucose Point of Care 106 mg/dl (65-105)
[2023-05-16] MEDS: GLYCOPYRROLATE INJ (*SP) 0.2 MG/ML VIAL 0.1 MG IV PUSH (21:42)
[2023-05-16] MEDS: WATER FOR IRRIGATION, STERILE 1,000 ML BOTTLE 1000 ML (22:13)
[2023-05-16 23:05] LABS: Glucose Point of Care 115 mg/dl (65-105)
[2023-05-17] VITALS (14 sets, daily range): BP systolic 121–146; BP diastolic 83–90; PULSE 70–105; RESP 20–21; TEMP 36.3–37.2; O2SAT 96–99
[2023-05-17] MEDS: IPRATROPIUM BR 0.02% INH SOLN 0.5 MG/2.5 ML VIAL INHALATION ×4 (02:41→21:32)
[2023-05-17] MEDS: ALBUTEROL SULFATE NEB 2.5 MG/3 ML INH INHALATION ×4 (02:41→21:32)
[2023-05-17] MEDS: CEFEPIME 2 GM/NS 50 ML 2 GM/50 ML BAG IVPB ×3 (04:40→21:33)
[2023-05-17] MEDS: GLYCOPYRROLATE INJ (*SP) 0.2 MG/ML VIAL 0.1 MG IV PUSH ×3 (04:40→21:33)
[2023-05-17 05:18] LABS: Glucose Point of Care 118 mg/dl (65-105)
[2023-05-17] MEDS: WATER FOR IRRIGATION, STERILE 1,000 ML BOTTLE 1000 ML (05:51)
[2023-05-17] MEDS: DOCUSATE SODIUM LIQ 100 MG/10 ML UDC FEED TUBE (08:34)
[2023-05-17] MEDS: SCOPOLAMINE 1 MG PATCH 1 PATCH TRANSDERM (08:34)
[2023-05-17] MEDS: PANTOPRAZOLE SODIUM IV 40 MG VIAL IV PUSH (08:34)
[2023-05-17] MEDS: FERROUS SULFATE LIQUID 325 MG/7.4 ML ELIXIR PO ×2 (08:34→16:17)
[2023-05-17] MEDS: carvediloL 12.5 MG TABLET FEED TUBE ×2 (08:36→16:17)
[2023-05-17] MEDS: ASPIRIN 81 MG CHEWABLE TABLET FEED TUBE (08:37)
[2023-05-17] MEDS: SENNOSIDES 8.6 MG TABLET FEED TUBE (08:37)
[2023-05-17] MEDS: ENOXAPARIN 40 MG/0.4 ML SYRINGE SUB-Q (08:37)
[2023-05-17] MEDS: DORNASE ALFA INH SOLN 1 MG/ML 2.5 ML AMP 2.5 MG INHALATION ×2 (08:46→21:32)
[2023-05-17 09:36] LABS: Basophils Percent Auto 0.5 % (0.2-1.2); Eosinophils Absolute Auto 0.3 K/mm3 (0-0.3); Eosinophils Percent Auto 6.1 % (0-4.4); Hemoglobin 12.2 g/dL (14.0-18.0); Immature Granulocyte Absolute 0.02 K/mm3 (0.00-0.031); Immature Granulocyte Percent A 0.4 % (0-0.5); Lymphocytes Absolute Auto 0.87 K/mm3 (0.9-3.2); Lymphocytes Percent Auto 15.6 % (18.3-44.2); Mean Corpuscular HGB Conc 29.8 g/dl (32-36); Mean Corpuscular Hemoglobin 24.7 pg (26-34); Mean Corpuscular Volume 83.2 fl (80-100); Mean Platelet Volume 9.6 fl (7.4-10.4); Monocytes Absolute Auto 0.5 K/mm3 (0.1-0.6); Monocytes Percent Auto 8.6 % (2.6-8.5); Neutrophils Absolute Auto 3.8 K/mm3 (1.3-6.7); Neutrophils Percent Auto 68.8 % (45.5-73.1); Platelet Count Result 310 k/mm3 (150-375); Red Blood Count 4.93 M/mm3 (4.6-6.20); Red Cell Distribution Width 15.1 % (11.5-14.5); White Blood Count 5.6 K/mm3 (4.5-10.0)
[2023-05-17 10:03] LABS: Burr Cells 1+ (NORMAL); Crenated RBC 1+ (NORMAL); Platelet Estimate Adequate (Adequate); Schistocytes None Seen (NORMAL)
[2023-05-17 10:57] LABS: Alanine Aminotransferase 13 U/L (6-50); Bilirubin,Total 0.7 mg/dL (0.2-1.3); Chloride 109 mmol/L (98-107); Estimated CRCL calculation 180 ml/min; Estimated Glomerular Filt Rate > 60; Glucose 121 mg/dL (65-110); Sodium 137 mmol/L (137-145)
[2023-05-17 10:58] LABS: Alkaline Phosphatase 71 U/L (38-126); Anion Gap 7 mmol/L (8-16); Aspartate Amino Transferase 27 U/L (17-59); Blood Urea Nitrogen 8 mg/dL (9-20); Calcium 8.6 mg/dL (8.4-10.2); Carbon Dioxide 21 mmol/L (22-30); Magnesium 1.9 mg/dL (1.6-2.3)
[2023-05-17 12:41] LABS: Glucose Point of Care 114 mg/dl (65-105)
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
[2023-05-17 18:18] LABS: Glucose Point of Care 130 mg/dl (65-105)
[2023-05-17 22:05] LABS: Glucose Point of Care 75 mg/dl (65-105)
[2023-05-18] VITALS (14 sets, daily range): BP systolic 129–149; BP diastolic 77–86; PULSE 87–129; RESP 18–24; TEMP 36.8–37.4; O2SAT 92–100
[2023-05-18] MEDS: IPRATROPIUM BR 0.02% INH SOLN 0.5 MG/2.5 ML VIAL INHALATION ×4 (01:34→22:50)
[2023-05-18] MEDS: ALBUTEROL SULFATE NEB 2.5 MG/3 ML INH INHALATION ×4 (01:34→22:50)
[2023-05-18 02:00] LABS: Glucose Point of Care 121 mg/dl (65-105)
[2023-05-18] MEDS: GLYCOPYRROLATE INJ (*SP) 0.2 MG/ML VIAL 0.1 MG IV PUSH ×3 (05:27→21:30)
[2023-05-18] MEDS: CEFEPIME 2 GM/NS 50 ML 2 GM/50 ML BAG IVPB (05:27)
[2023-05-18] MEDS: ENOXAPARIN 40 MG/0.4 ML SYRINGE SUB-Q (08:28)
[2023-05-18] MEDS: PANTOPRAZOLE SODIUM IV 40 MG VIAL IV PUSH (08:28)
[2023-05-18] MEDS: carvediloL 12.5 MG TABLET FEED TUBE ×2 (08:29→17:50)
[2023-05-18] MEDS: FERROUS SULFATE LIQUID 325 MG/7.4 ML ELIXIR PO ×2 (08:29→17:50)
[2023-05-18] MEDS: polyethylene glycoL 3350 17 GM POWD.PACK FEED TUBE (08:29)
[2023-05-18] MEDS: SENNOSIDES 8.6 MG TABLET FEED TUBE (08:32)
[2023-05-18] MEDS: ASPIRIN 81 MG CHEWABLE TABLET FEED TUBE (08:32)
[2023-05-18] MEDS: DORNASE ALFA INH SOLN 1 MG/ML 2.5 ML AMP 2.5 MG INHALATION ×2 (08:40→22:50)
[2023-05-18] MEDS: DOCUSATE SODIUM LIQ 100 MG/10 ML UDC FEED TUBE (08:44)
--- NOTE | 2023-05-18 10:25 | PCNFU ---
Nutrition Follow-Up Complete: Inadequate energy intake related to NPO, emesis as evidenced by need for full tube feeding Goal:Meet estimated protein energy needs Pt meeting goal. continue with same goal. Pt current nutrition is Jevity 1.5 bolus of 237ml 6x/day. Nutrition recommendation: continue with current plan of care Last recorded weight is 90.5 kg. Bowel Motility: +BM 05/17 Labs Reviewed: Hgb:12.2, HCt:41, Alb:3.0, BUN:8, Cr:0.5, Glu:121 Meds Noted: lovenox, zofran, protonix Skin: no skin issues noted Additional Notes: Pt continues on tube feeding of Jevity 1.5 Bolus 237 ml, 8 oz container 6x per day. Total 2130 kcal, 91 g protien, 1080 ml free water. Flush 150 ml q 4 hours for total water 1980 ml/day. Pt is tolerating well. Continue with current plan of care. Monitor tube feeding orders, labs, weights, stool patterns, tube feeding tolerance Follow up Wednesday and Wednesday per policy
[2023-05-18 12:04] LABS: Glucose Point of Care 86 mg/dl (65-105)
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
[2023-05-18] MEDS: levoFLOXacin 750 MG TABLET FEED TUBE (14:18)
[2023-05-18 17:39] LABS: Glucose Point of Care 85 mg/dl (65-105)
[2023-05-18 23:40] LABS: Glucose Point of Care 101 mg/dl (65-105)
[2023-05-19] VITALS (17 sets, daily range): BP systolic 125–166; BP diastolic 74–82; PULSE 61–111; RESP 14–22; TEMP 37–37.1; O2SAT 91–100
[2023-05-19] MEDS: ALBUTEROL SULFATE NEB 2.5 MG/3 ML INH INHALATION ×4 (02:30→21:10)
[2023-05-19] MEDS: IPRATROPIUM BR 0.02% INH SOLN 0.5 MG/2.5 ML VIAL INHALATION ×4 (02:30→21:10)
[2023-05-19] MEDS: GLYCOPYRROLATE INJ (*SP) 0.2 MG/ML VIAL 0.1 MG IV PUSH ×3 (05:13→22:30)
[2023-05-19 05:42] LABS: Glucose Point of Care 132 mg/dl (65-105)
[2023-05-19 07:15] LABS: Basophils Percent Auto 0.4 % (0.2-1.2); Eosinophils Absolute Auto 0.2 K/mm3 (0-0.3); Eosinophils Percent Auto 2.6 % (0-4.4); Hematocrit 40.7 % (42.0-52.0); Hemoglobin 12.2 g/dL (14.0-18.0); Immature Granulocyte Absolute 0.01 K/mm3 (0.00-0.031); Immature Granulocyte Percent A 0.1 % (0-0.5); Lymphocytes Absolute Auto 1.29 K/mm3 (0.9-3.2); Lymphocytes Percent Auto 18.3 % (18.3-44.2); Mean Corpuscular Hemoglobin 24.5 pg (26-34); Mean Corpuscular Volume 81.7 fl (80-100); Mean Platelet Volume 9.9 fl (7.4-10.4); Monocytes Absolute Auto 0.8 K/mm3 (0.1-0.6); Monocytes Percent Auto 11.4 % (2.6-8.5); Neutrophils Absolute Auto 4.7 K/mm3 (1.3-6.7); Neutrophils Percent Auto 67.2 % (45.5-73.1); Platelet Count Result 365 k/mm3 (150-375); Red Blood Count 4.98 M/mm3 (4.6-6.20); Red Cell Distribution Width 15.1 % (11.5-14.5)
[2023-05-19 07:39] LABS: Alanine Aminotransferase 13 U/L (6-50); Albumin Level 3.4 g/dL (3.5-5.1); Alkaline Phosphatase 96 U/L (38-126); Anion Gap 6 mmol/L (8-16); Aspartate Amino Transferase 19 U/L (17-59); Bilirubin,Total 0.3 mg/dL (0.2-1.3); Blood Urea Nitrogen 12 mg/dL (9-20); Calcium 8.8 mg/dL (8.4-10.2); Carbon Dioxide 26 mmol/L (22-30); Chloride 104 mmol/L (98-107); Estimated CRCL calculation 153 ml/min; Estimated Glomerular Filt Rate > 60; Glucose 100 mg/dL (65-110); Magnesium 2.1 mg/dL (1.6-2.3); Potassium 4.3 mmol/L (3.4-5.0); Sodium 136 mmol/L (137-145)
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
[2023-05-19] MEDS: DORNASE ALFA INH SOLN 1 MG/ML 2.5 ML AMP 2.5 MG INHALATION ×2 (09:11→21:30)
[2023-05-19] MEDS: carvediloL 12.5 MG TABLET FEED TUBE ×2 (09:12→16:41)
[2023-05-19] MEDS: LANSOPRAZOLE ODT 30 MG TAB.RAP.DR FEED TUBE (09:12)
--- NOTE | 2023-05-19 09:12 | PCDIET ---
Consult: Nutrition note: Consult from the floor re: 100 ml residuals at 0000 bolus feeding. Spoke to RN, explained 100 ml residual is considered within normal limits and not a sign of intolerance. RN denied any vomiting, diarrhea or abdominal distension that would indicate intolerance. Pt tolerates boluses at home. No changes to tube feeding recommended at this time.
[2023-05-19] MEDS: ASPIRIN 81 MG CHEWABLE TABLET FEED TUBE (09:13)
[2023-05-19] MEDS: FERROUS SULFATE LIQUID 325 MG/7.4 ML ELIXIR PO ×2 (09:13→16:41)
[2023-05-19] MEDS: DOCUSATE SODIUM LIQ 100 MG/10 ML UDC FEED TUBE (09:13)
[2023-05-19] MEDS: SENNOSIDES 8.6 MG TABLET FEED TUBE (09:13)
[2023-05-19] MEDS: ENOXAPARIN 40 MG/0.4 ML SYRINGE SUB-Q (09:13)
[2023-05-19] MEDS: polyethylene glycoL 3350 17 GM POWD.PACK FEED TUBE (09:13)
[2023-05-19 11:50] LABS: Glucose Point of Care 126 mg/dl (65-105)
[2023-05-19] MEDS: levoFLOXacin 750 MG TABLET FEED TUBE (13:11)
[2023-05-19 18:21] LABS: Glucose Point of Care 103 mg/dl (65-105)
[2023-05-20] VITALS (15 sets, daily range): BP systolic 132–165; BP diastolic 90–95; PULSE 82–107; RESP 18–20; TEMP 35.9–37.3; O2SAT 93–100
[2023-05-20 00:05] LABS: Glucose Point of Care 114 mg/dl (65-105)
[2023-05-20] MEDS: ALBUTEROL SULFATE NEB 2.5 MG/3 ML INH INHALATION ×4 (03:15→21:24)
[2023-05-20] MEDS: IPRATROPIUM BR 0.02% INH SOLN 0.5 MG/2.5 ML VIAL INHALATION ×4 (03:15→21:24)
[2023-05-20] MEDS: GLYCOPYRROLATE INJ (*SP) 0.2 MG/ML VIAL 0.1 MG IV PUSH ×3 (05:15→21:00)
[2023-05-20] MEDS: DORNASE ALFA INH SOLN 1 MG/ML 2.5 ML AMP 2.5 MG INHALATION ×2 (08:30→21:24)
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
[2023-05-20] MEDS: DOCUSATE SODIUM LIQ 100 MG/10 ML UDC FEED TUBE (08:58)
[2023-05-20] MEDS: SCOPOLAMINE 1 MG PATCH 1 PATCH TRANSDERM (08:58)
[2023-05-20] MEDS: FERROUS SULFATE LIQUID 325 MG/7.4 ML ELIXIR PO ×2 (08:58→15:47)
[2023-05-20] MEDS: ENOXAPARIN 40 MG/0.4 ML SYRINGE SUB-Q (08:58)
[2023-05-20] MEDS: polyethylene glycoL 3350 17 GM POWD.PACK FEED TUBE (08:59)
[2023-05-20] MEDS: carvediloL 12.5 MG TABLET FEED TUBE ×2 (08:59→15:47)
[2023-05-20] MEDS: ASPIRIN 81 MG CHEWABLE TABLET FEED TUBE (09:00)
[2023-05-20] MEDS: SENNOSIDES 8.6 MG TABLET FEED TUBE (09:00)
[2023-05-20] MEDS: LANSOPRAZOLE ODT 30 MG TAB.RAP.DR FEED TUBE (09:00)
--- NOTE | 2023-05-20 10:53 | PC.NURSE ---
[address] Whitt, azael for lab to draw labs from foot, unable to get with US or other locations.
[2023-05-20 11:36] LABS: Basophils Percent Auto 0.3 % (0.2-1.2); Eosinophils Absolute Auto 0.2 K/mm3 (0-0.3); Eosinophils Percent Auto 2.9 % (0-4.4); Hematocrit 38.9 % (42.0-52.0); Hemoglobin 11.7 g/dL (14.0-18.0); Immature Granulocyte Absolute 0.02 K/mm3 (0.00-0.031); Immature Granulocyte Percent A 0.3 % (0-0.5); Lymphocytes Absolute Auto 1.52 K/mm3 (0.9-3.2); Lymphocytes Percent Auto 19.9 % (18.3-44.2); Mean Corpuscular HGB Conc 30.1 g/dl (32-36); Mean Corpuscular Hemoglobin 24.6 pg (26-34); Mean Corpuscular Volume 81.9 fl (80-100); Mean Platelet Volume 9.5 fl (7.4-10.4); Monocytes Absolute Auto 0.9 K/mm3 (0.1-0.6); Monocytes Percent Auto 11.3 % (2.6-8.5); Neutrophils Percent Auto 65.3 % (45.5-73.1); Platelet Count Result 363 k/mm3 (150-375); Red Blood Count 4.75 M/mm3 (4.6-6.20); Red Cell Distribution Width 15.1 % (11.5-14.5); White Blood Count 7.6 K/mm3 (4.5-10.0)
[2023-05-20 11:45] LABS: Anion Gap 7 mmol/L (8-16); Blood Urea Nitrogen 14 mg/dL (9-20); Calcium 8.9 mg/dL (8.4-10.2); Carbon Dioxide 28 mmol/L (22-30); Chloride 102 mmol/L (98-107); Estimated CRCL calculation 153 ml/min; Estimated Glomerular Filt Rate > 60; Glucose 86 mg/dL (65-110); Sodium 137 mmol/L (137-145)
[2023-05-20 12:44] LABS: Glucose Point of Care 108 mg/dl (65-105)
[2023-05-20 14:42] LABS: Alveolar/Arterial O2 Gradient 63.8 mmHg; Base Excess ABG 2.4 mEq/l (+/-2.0); Carboxyhemoglobin 0.3 % THb (0-2.0); Fractional Inspired Oxygen 24 %; HCO3 ABG 26.4 mEq/l (22.0-26.0); Methemoglobin ABG 0.3 %THb (0-1.5); Oxygen Content ABG 16.7 %vol (16.0-22.0); Oxygen Saturation ABG 92.6 % (95.0-100.0); Oxyhemoglobin 91.5 % THb (90.0-100.0); PCO2 ABG 38.8 mmHg (35.0-45.0); PO2 ABG 61.2 mmHg (80.0-100.0); PO2 FiO2 Ratio Arterial Blood 2.55 %; Reduced Hemoglobin 7.9 %THb (0-5.0); pH ABG 7.451 (7.350-7.450)
[2023-05-20 14:43] LABS: Site Drawn RIGHT RADIAL
[2023-05-20 14:44] LABS: Device NASAL CANNULA; Modified Allen's Test Pass
[2023-05-20] MEDS: levoFLOXacin 750 MG TABLET FEED TUBE (15:40)
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
[2023-05-20 18:06] LABS: Glucose Point of Care 107 mg/dl (65-105)
[2023-05-21] VITALS (9 sets, daily range): BP systolic 123–138; BP diastolic 74–94; PULSE 95–108; RESP 20–24; TEMP 35.9–37.3; O2SAT 93–100
[2023-05-21 00:27] LABS: Glucose Point of Care 122 mg/dl (65-105)
--- NOTE | 2023-05-21 02:32 | PCRCNOTE ---
oximetry study; 0200 neb tx was omitted
[2023-05-21] MEDS: GLYCOPYRROLATE INJ (*SP) 0.2 MG/ML VIAL 0.1 MG IV PUSH (06:05)
[2023-05-21 06:38] LABS: Basophils Percent Auto 0.4 % (0.2-1.2); Eosinophils Absolute Auto 0.2 K/mm3 (0-0.3); Eosinophils Percent Auto 2.9 % (0-4.4); Hematocrit 39.5 % (42.0-52.0); Hemoglobin 11.9 g/dL (14.0-18.0); Immature Granulocyte Absolute 0.02 K/mm3 (0.00-0.031); Immature Granulocyte Percent A 0.3 % (0-0.5); Lymphocytes Absolute Auto 1.23 K/mm3 (0.9-3.2); Lymphocytes Percent Auto 16.2 % (18.3-44.2); Mean Corpuscular HGB Conc 30.1 g/dl (32-36); Mean Corpuscular Hemoglobin 24.9 pg (26-34); Mean Corpuscular Volume 82.6 fl (80-100); Mean Platelet Volume 9.7 fl (7.4-10.4); Monocytes Absolute Auto 0.7 K/mm3 (0.1-0.6); Monocytes Percent Auto 9.4 % (2.6-8.5); Neutrophils Absolute Auto 5.4 K/mm3 (1.3-6.7); Neutrophils Percent Auto 70.8 % (45.5-73.1); Platelet Count Result 345 k/mm3 (150-375); Red Blood Count 4.78 M/mm3 (4.6-6.20); Red Cell Distribution Width 15.2 % (11.5-14.5); White Blood Count 7.6 K/mm3 (4.5-10.0)
[2023-05-21 06:40] LABS: Glucose Point of Care 126 mg/dl (65-105)
[2023-05-21 06:43] LABS: Anion Gap 9 mmol/L (8-16); Blood Urea Nitrogen 13 mg/dL (9-20); Carbon Dioxide 26 mmol/L (22-30); Chloride 102 mmol/L (98-107); Estimated CRCL calculation 153 ml/min; Estimated Glomerular Filt Rate > 60; Glucose 114 mg/dL (65-110); Potassium 4.3 mmol/L (3.4-5.0); Sodium 137 mmol/L (137-145)
--- NOTE | 2023-05-21 08:00 | ECHO_ITS ---
Patient Info Name: Jaime Tyler Age: 37 years : 1985 Gender: Male Ht: 71 in Wt: 199 lbs BSA: 2.14 m2 HR: 107 bpm BP: 136 / 95 mmHg Heart Rhythm: Sinus Rhythm Technical Quality: Fair Exam Date: 05/21/2023 12:22 PM Exam Location: Echo Lab Exam Room: [facility] Patient Status: Inpatient Admit Date: 05/14/2023 Staff Ordering Physician: Mario Marie MD Microbiology Lab Manager: Jacquelin Can RDCS Attending Provider: Rukhsana Garcia MD Referring Physician: Frank TIMMONS; Exam Type: CA echo dop color flow w con Study Info Indications - assess lv rv fxn pasp h/o henny Complete two-dimensional, color flow and Doppler transthoracic echocardiogram is performed. Contrast/Agitated Saline Contrast/Ag. Saline: Definity Amount: 2.00 ml Administered By: Jacquelin Can [facility] [place] Existing IV Access: Yes IV Access Condition: patent with no signs of infiltration Summary 1. Complete two-dimensional, color flow and Doppler transthoracic echocardiogram is performed. 2. Left ventricular chamber dimension is normal. 3. Left ventricular systolic function is normal, estimated at 65-70%. 4. There is mildly increased left ventricular wall thickness. 5. The left ventricular diastolic function is normal. 6. There is mild tricuspid valve regurgitation. 7. No pulmonary hypertension, estimated pulmonary arterial systolic pressure is 29 mmHg. Left Ventricle Left ventricular chamber dimension is normal. Left ventricular systolic function is normal, estimated at 65-70%. There is mildly increased left ventricular wall thickness. The left ventricular diastolic function is normal. Right Ventricle Right ventricular chamber dimension is mildly enlarged. Right ventricular systolic function is normal. Left Atria Left atrial chamber dimension is normal. Right Atria Right atrial chamber dimension is normal. Atrial Septum Intact interatrial septum visualized by color flow imaging. Aortic Valve The aortic valve is probable trileaflet. There is mild aortic valve sclerosis. There is no aortic valve stenosis. There is trace aortic valve regurgitation. Pulmonic Valve The pulmonic valve is normal. There is no pulmonic valve stenosis. There is trace pulmonic regurgitation. Mitral Valve The mitral valve has thickened leaflets. There is no mitral valve stenosis. There is trace mitral valve regurgitation. Tricuspid Valve The tricuspid valve leaflets are normal. There is no significant tricuspid valve stenosis. There is mild tricuspid valve regurgitation. No pulmonary hypertension, estimated pulmonary arterial systolic pressure is 29 mmHg. Pericardium/Pleural The pericardium appears normal. There is no pericardial effusion. Inferior Vena Cava Normal inferior vena cava with >50% collapse upon inspiration consistent with normal right atrial pressure, 10 mmHg. Aorta The aortic root size at the sinus of Valsalva is normal. Left Ventricular Outflow Tract Name Value Normal LVOT 2D LVOT Diameter 2.09 cm Pulmonic Valve Name Value Normal PV Doppler
--- NOTE | 2023-05-21 08:49 | PCNFU ---
Nutrition Follow-Up Complete: Inadequate energy intake related to NPO, emesis as evidenced by need for full tube feeding Goal: Meet estimated protein energy needs - Goal is being met with tube feeding Pt current nutrition is Jevity 1.5 bolus 237 ml (8 oz) x6 per day. Total 2130 kcal (~96% EER), 91 g protein (100% estimated protein needs), 1980 ml free water including 150 ml flushes q4 hours. Nutrition recommendation: Continue current tube feeding orders and nutrition care plan. Agree with orders Last recorded weight is 90.5 kg. Bowel Motility: +1 BM 05/20/22 Labs Reviewed: Hgb 11.9, Hct 39.5, Alb 3.4, Cre 0.6, Glu 126 Meds Noted: Lovenox, zofran, prevacid, dulcolax, colace, miralax, senna Skin: Blister ankle Additional Notes: Tolerating tube feeding well. Bowel regimen started for fecal impaction. Continue with same orders Monitor tube feeding orders, labs, weights, stool patterns, tube feeding tolerance Follow up Wednesday and Wednesday per policy
[2023-05-21] MEDS: IPRATROPIUM BR 0.02% INH SOLN 0.5 MG/2.5 ML VIAL INHALATION (08:58)
[2023-05-21] MEDS: ALBUTEROL SULFATE NEB 2.5 MG/3 ML INH INHALATION (08:58)
[2023-05-21] MEDS: LANSOPRAZOLE ODT 30 MG TAB.RAP.DR FEED TUBE (09:08)
[2023-05-21] MEDS: ASPIRIN 81 MG CHEWABLE TABLET FEED TUBE (09:08)
[2023-05-21] MEDS: FERROUS SULFATE LIQUID 325 MG/7.4 ML ELIXIR PO ×2 (09:08→15:43)
[2023-05-21] MEDS: carvediloL 12.5 MG TABLET FEED TUBE ×2 (09:09→15:43)
[2023-05-21] MEDS: ENOXAPARIN 40 MG/0.4 ML SYRINGE SUB-Q (09:11)
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
[2023-05-21 11:44] LABS: Glucose Point of Care 123 mg/dl (65-105)
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
[2023-05-21] MEDS: PERFLUTREN LIPID MICROSPHERES 1.5 ML VIAL DILUTED TO 10 ML TOTAL VOLUME IV PUSH (12:45)
--- NOTE | 2023-05-21 14:40 | IVDEFINITY ---
Prior to administration of IV Definity the patient was educated on the risks and benefits of the imaging enhancing agent including potential adverse side effects. The patient verbalized understanding. Allergies were verified. No exclusion criteria were identified and at least one of the following inclusion criteria were met: 1) physician request, 2) patient technically difficult to image (per the [place] [employer] guidelines of two or more segments not discernable within the apical view), or 3) questionable left ventricular function. ?
[2023-05-21] MEDS: levoFLOXacin 750 MG TABLET FEED TUBE (15:39)
[2023-05-22] VITALS (7 sets, daily range): BP systolic 141–146; BP diastolic 72–89; PULSE 99–108; RESP 22; TEMP 36.3–36.7; O2SAT 97–100
[2023-05-22 02:55] LABS: Glucose Point of Care 92 mg/dl (65-105)
[2023-05-22 06:10] LABS: Glucose Point of Care 95 mg/dl (65-105)
[2023-05-22 07:02] LABS: Basophils Percent Auto 0.4 % (0.2-1.2); Eosinophils Absolute Auto 0.2 K/mm3 (0-0.3); Eosinophils Percent Auto 2.3 % (0-4.4); Hematocrit 38.3 % (42.0-52.0); Hemoglobin 11.9 g/dL (14.0-18.0); Immature Granulocyte Absolute 0.02 K/mm3 (0.00-0.031); Immature Granulocyte Percent A 0.3 % (0-0.5); Lymphocytes Percent Auto 15.4 % (18.3-44.2); Mean Corpuscular HGB Conc 31.1 g/dl (32-36); Mean Corpuscular Hemoglobin 24.9 pg (26-34); Mean Corpuscular Volume 80.3 fl (80-100); Mean Platelet Volume 9.2 fl (7.4-10.4); Monocytes Absolute Auto 0.6 K/mm3 (0.1-0.6); Monocytes Percent Auto 7.6 % (2.6-8.5); Neutrophils Absolute Auto 5.8 K/mm3 (1.3-6.7); Platelet Count Result 339 k/mm3 (150-375); Red Blood Count 4.77 M/mm3 (4.6-6.20); Red Cell Distribution Width 14.9 % (11.5-14.5); White Blood Count 7.8 K/mm3 (4.5-10.0)
[2023-05-22 07:12] LABS: Anion Gap 6 mmol/L (8-16); Blood Urea Nitrogen 14 mg/dL (9-20); Calcium 8.8 mg/dL (8.4-10.2); Carbon Dioxide 28 mmol/L (22-30); Chloride 102 mmol/L (98-107); Estimated CRCL calculation 133 ml/min; Estimated Glomerular Filt Rate > 60; Glucose 119 mg/dL (65-110); Potassium 4.2 mmol/L (3.4-5.0); Sodium 136 mmol/L (137-145)
[2023-05-22] MEDS: SENNOSIDES 8.6 MG TABLET FEED TUBE (09:16)
[2023-05-22] MEDS: LANSOPRAZOLE ODT 30 MG TAB.RAP.DR FEED TUBE (09:16)
[2023-05-22] MEDS: ENOXAPARIN 40 MG/0.4 ML SYRINGE SUB-Q (09:16)
[2023-05-22] MEDS: FERROUS SULFATE LIQUID 325 MG/7.4 ML ELIXIR PO ×2 (09:16→16:40)
[2023-05-22] MEDS: ASPIRIN 81 MG CHEWABLE TABLET FEED TUBE (09:16)
[2023-05-22] MEDS: carvediloL 12.5 MG TABLET FEED TUBE ×2 (09:16→16:40)
[2023-05-22] MEDS: DOCUSATE SODIUM LIQ 100 MG/10 ML UDC FEED TUBE (09:16)
[2023-05-22] MEDS: polyethylene glycoL 3350 17 GM POWD.PACK FEED TUBE (09:16)
[2023-05-22 11:28] LABS: Glucose Point of Care 116 mg/dl (65-105)
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
[2023-05-22] MEDS: levoFLOXacin 750 MG TABLET FEED TUBE (15:04)
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
[2023-05-22 17:37] LABS: Glucose Point of Care 130 mg/dl (65-105)
[2023-05-23] VITALS (7 sets, daily range): BP systolic 98–139; BP diastolic 72–85; PULSE 86–108; RESP 16–22; TEMP 36.3–36.6; O2SAT 96–99
[2023-05-23 01:36] LABS: Glucose Point of Care 121 mg/dl (65-105)
[2023-05-23 06:56] LABS: Hematocrit 39.5 % (42.0-52.0); Hemoglobin 12.1 g/dL (14.0-18.0); Mean Corpuscular HGB Conc 30.6 g/dl (32-36); Mean Corpuscular Hemoglobin 24.4 pg (26-34); Mean Corpuscular Volume 79.8 fl (80-100); Mean Platelet Volume 9.6 fl (7.4-10.4); Platelet Count Result 384 k/mm3 (150-375); Red Blood Count 4.95 M/mm3 (4.6-6.20); Red Cell Distribution Width 14.7 % (11.5-14.5); White Blood Count 7.9 K/mm3 (4.5-10.0)
[2023-05-23 07:02] LABS: Anion Gap 7 mmol/L (8-16); Blood Urea Nitrogen 15 mg/dL (9-20); Calcium 9.1 mg/dL (8.4-10.2); Carbon Dioxide 28 mmol/L (22-30); Chloride 101 mmol/L (98-107); Estimated CRCL calculation 133 ml/min; Estimated Glomerular Filt Rate > 60; Glucose 123 mg/dL (65-110); Potassium 4.3 mmol/L (3.4-5.0); Sodium 136 mmol/L (137-145)
[2023-05-23] MEDS: DOCUSATE SODIUM LIQ 100 MG/10 ML UDC FEED TUBE (08:23)
[2023-05-23] MEDS: carvediloL 12.5 MG TABLET FEED TUBE ×2 (08:23→16:38)
[2023-05-23] MEDS: ASPIRIN 81 MG CHEWABLE TABLET FEED TUBE (08:23)
[2023-05-23] MEDS: LANSOPRAZOLE ODT 30 MG TAB.RAP.DR FEED TUBE (08:24)
[2023-05-23] MEDS: polyethylene glycoL 3350 17 GM POWD.PACK FEED TUBE (08:25)
[2023-05-23] MEDS: ENOXAPARIN 40 MG/0.4 ML SYRINGE SUB-Q (08:25)
[2023-05-23] MEDS: SENNOSIDES 8.6 MG TABLET FEED TUBE (08:25)
[2023-05-23] MEDS: SCOPOLAMINE 1 MG PATCH 1 PATCH TRANSDERM (08:25)
[2023-05-23] MEDS: FERROUS SULFATE LIQUID 325 MG/7.4 ML ELIXIR PO ×2 (08:25→16:38)
[2023-05-23 11:53] LABS: Glucose Point of Care 102 mg/dl (65-105)
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
[2023-05-24 00:55] LABS: Glucose Point of Care 91 mg/dl (65-105)
[2023-05-24 04:24] VITALS: BP 134/94; PULSE 102; RESP 24; TEMP 37.2; O2SAT 100
[2023-05-24 07:04] LABS: Hematocrit 38.1 % (42.0-52.0); Hemoglobin 11.5 g/dL (14.0-18.0); Mean Corpuscular HGB Conc 30.2 g/dl (32-36); Mean Corpuscular Hemoglobin 24.3 pg (26-34); Mean Corpuscular Volume 80.5 fl (80-100); Mean Platelet Volume 9.7 fl (7.4-10.4); Platelet Count Result 378 k/mm3 (150-375); Red Blood Count 4.73 M/mm3 (4.6-6.20); Red Cell Distribution Width 14.9 % (11.5-14.5); White Blood Count 7.3 K/mm3 (4.5-10.0)
[2023-05-24 07:29] LABS: Alanine Aminotransferase 17 U/L (6-50); Albumin Level 3.7 g/dL (3.5-5.1); Alkaline Phosphatase 99 U/L (38-126); Anion Gap 8 mmol/L (8-16); Aspartate Amino Transferase 21 U/L (17-59); Bilirubin,Total 0.3 mg/dL (0.2-1.3); Blood Urea Nitrogen 17 mg/dL (9-20); Carbon Dioxide 27 mmol/L (22-30); Chloride 102 mmol/L (98-107); Estimated CRCL calculation 133 ml/min; Estimated Glomerular Filt Rate > 60; Glucose 112 mg/dL (65-110); Potassium 4.4 mmol/L (3.4-5.0); Sodium 137 mmol/L (137-145)
[2023-05-24 08:00] VITALS: PULSE 101; O2SAT 96
[2023-05-24] MEDS: FERROUS SULFATE LIQUID 325 MG/7.4 ML ELIXIR PO ×2 (09:11→17:14)
[2023-05-24] MEDS: polyethylene glycoL 3350 17 GM POWD.PACK FEED TUBE (09:11)
[2023-05-24] MEDS: ENOXAPARIN 40 MG/0.4 ML SYRINGE SUB-Q (09:12)
[2023-05-24] MEDS: DOCUSATE SODIUM LIQ 100 MG/10 ML UDC FEED TUBE (09:12)
[2023-05-24] MEDS: LANSOPRAZOLE ODT 30 MG TAB.RAP.DR FEED TUBE (09:13)
[2023-05-24 09:14] VITALS: PULSE 101
[2023-05-24] MEDS: SENNOSIDES 8.6 MG TABLET FEED TUBE (09:14)
[2023-05-24] MEDS: carvediloL 12.5 MG TABLET FEED TUBE ×2 (09:14→17:14)
[2023-05-24] MEDS: ASPIRIN 81 MG CHEWABLE TABLET FEED TUBE (09:14)
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
[2023-05-24 11:32] LABS: Glucose Point of Care 130 mg/dl (65-105)
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
[2023-05-24 14:00] VITALS: BP 115/82; PULSE 102; RESP 18; TEMP 36.1; O2SAT 99
[2023-05-24 17:14] VITALS: PULSE 99
[2023-05-24 17:53] LABS: Glucose Point of Care 95 mg/dl (65-105)
[2023-05-24 22:00] VITALS: BP 116/80; PULSE 101; RESP 20; TEMP 36.3; O2SAT 97
[2023-05-25 00:14] LABS: Glucose Point of Care 84 mg/dl (65-105)
[2023-05-25 06:00] VITALS: BP 124/96; PULSE 118; RESP 22; TEMP 36.5; O2SAT 98
[2023-05-25 06:56] LABS: Glucose Point of Care 82 mg/dl (65-105)
[2023-05-25 08:00] VITALS: PULSE 105; O2SAT 93
[2023-05-25] MEDS: ENOXAPARIN 40 MG/0.4 ML SYRINGE SUB-Q (09:02)
[2023-05-25] MEDS: FERROUS SULFATE LIQUID 325 MG/7.4 ML ELIXIR PO (09:02)
[2023-05-25] MEDS: DOCUSATE SODIUM LIQ 100 MG/10 ML UDC FEED TUBE (09:02)
[2023-05-25 09:03] VITALS: PULSE 105
[2023-05-25] MEDS: ASPIRIN 81 MG CHEWABLE TABLET FEED TUBE (09:03)
[2023-05-25] MEDS: polyethylene glycoL 3350 17 GM POWD.PACK FEED TUBE (09:03)
[2023-05-25] MEDS: SENNOSIDES 8.6 MG TABLET FEED TUBE (09:03)
[2023-05-25] MEDS: carvediloL 12.5 MG TABLET FEED TUBE (09:03)
[2023-05-25] MEDS: LANSOPRAZOLE ODT 30 MG TAB.RAP.DR FEED TUBE (09:03)
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
--- NOTE | 2023-05-25 11:17 | PCNFU ---
Nutrition Follow-Up Complete: Inadequate energy intake related to NPO, emesis as evidenced by need for full tube feeding Goal:Meet estimated protein energy needs Pt current nutrition is Jevity 1.5 bolus feeds. Nutrition recommendation: continue with current plan of care Last recorded weight is 91.5 kg. Bowel Motility: +BM 05/24 Labs Reviewed: Hgb:11.5, HCT:38.1, Glu:130 Meds Noted: lovenox, zofran, colace, miralx Skin: no skin issues noted Additional Notes: Pt continues on the same tube feed bolus. Jevity 1.5 237 ml (8 oz) x6 per day. Total 2130 kcal, 91 g protein, 1980 ml free water including 150 ml flushes q4 hours. Pt is tolerating well. Plans to discharge today. Monitor tube feeding orders, labs, weights, stool patterns, tube feeding tolerance Follow up Wednesday and Wednesday per policy
[2023-05-25 11:26] LABS: Glucose Point of Care 94 mg/dl (65-105)
== END 2023-05-25 12:40 | disposition home or self-care (01) | DRG 137 ==
LOC: ANHED 05-13 02:25 → ANH3MEDSUR 05-13 05:53
PROVIDERS: Hospitalist; Internal Medicine; Internal Medicine Pulmonary Disease; Student in an Organized Health Care Education/Training Program; Admitting Provider General Practice; Emergency Provider Physician Assistant; PCP Internal Medicine Infectious Disease; Visit Provider Internal Medicine Critical Care Medicine
DX: J69.0 Pneumonitis due to inhalation of food and vomit (principal); G82.20 Paraplegia, unspecified; K56.41 Fecal impaction; I10 Essential (primary) hypertension; G47.33 Obstructive sleep apnea (adult) (pediatric); Z98.890 Other specified postprocedural states; T14.8XXS Other injury of unspecified body region, sequela; W34.00XS Accidental discharge from unspecified firearms or gun, sequela; Z93.1 Gastrostomy status; Z74.01 Bed confinement status; Z86.73 Personal history of transient ischemic attack (TIA), and cerebral infarction without residual deficits; Z87.891 Personal history of nicotine dependence; Z20.822 Contact with and (suspected) exposure to COVID-19
CPT/HCPCS: 36415; 36600; 71045; 71260; 74177; 80048; 80053; 80202; 81003; 82375; 82565; 82805; 82948; 83050; 83605; 83690; 83735; 85025; 85027; 87040; 87070; 87077; 87147; 87181; 87186; 87205; 87637; 87641; 94640; 94762; 96361; 96365; 96366; 96367; 96374; 96375; 99285; A9270; C8929; C9113; G0378; G0379; J0295; J0692; J1596; J1650; J2405; J3370; J7030; Q9957; Q9967

== ENCOUNTER 2024-02-23 10:50 | Outpatient (CLI) | payer MEDICARE, SELFPAY ==
[2024-02-23 10:50] VITALS: BP 103/77; PULSE 83; RESP 16; TEMP 36.9; O2SAT 100
--- NOTE | 2024-02-23 11:23 | PC.NURSE ---
Mother at bedside, states she is unsure what size or type the G-tube is. States it was originally put in here at [place] but was changed several times while he was in the [place] [facility].
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
[2024-02-23 14:11] VITALS: BP 103/77; PULSE 86; RESP 22; TEMP 36.8; O2SAT 98
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
--- NOTE | 2024-02-23 14:32 | P.OP_ITS ---
Procedure Note - Detailed Date of Procedure 02/23/24 Pre-op Diagnosis G TUBE MALFUNCTION Post-op Diagnosis Same Procedure Performed g-tube was removed in one piece Surgeon Juan A Hall MD Anesthesia None Description of Procedure malfunctioning g-tube was pulled out in one piece, then using same gastrostomy site I advanced 20Fr G-tube, balloon inflated at 20 ml and secured at 3.5cm, port was flushed and noted gastric content after suction. Ok to start using G- tube again.
[2024-02-23 14:35] VITALS: BP 93/67; PULSE 76; RESP 24; TEMP 36.3; O2SAT 98
--- NOTE | 2024-02-23 14:44 | SUR.PHASEI ---
Addendum entered by Mary Pete, FIRE ALARM MECHANIC 02/23/24 15:05: bilateral heal protectors on bilateral feet Original Note: Times - Time Out Called: 1415 Procedure Start: 1418 Procedure End:1422 Position and Devices - Position: Supine Positioning Devices:pillow under pt's head, bilateral bedrails up Pre-Procedure Assessment - Site and Procedure Verified w Patient and/or Others as Appropriate:y Verification Coincides w Consent, H&P, Endoscopy Schedule, and Pre-Op Orders:y X-Rays/Imaging Studies in Room and/or Implants on Site:y Verified Operative Side Marked YES When Applicable: Preop Assessment Completed By:Lucy PARRA Time Out -1415 Entire Operative Team Participates and Confirms: y Correct Patient, Procedure, Side/Site and Position: y Availability of Implants, Special Equipment and Requests:y Preop Antibiotics Given within 1 Hour of Incision: Assessment of Skin Prep Dry Time: Prep = Surgery Prep Solution:n/a Site Prepped: Prepped By: Staff -Dr Mack Director Of Product Development:Tejal Pete RN Production Control Pegboard Clerk: Non Pharmacy Medications - Time: Name: Strength: Dose: Route: Site: Given By: Lot Number: Expiration Date: Actual Procedures - Description:# 20 Fr PEG tube removed from abdomen and #20 Fr replacement gastrostomy tube placed (lot [id number] exp 10-01-2024) Side: abdomen Wound Class:clean/contaminated Surgeon:Dr. Mack Severity: Preop Diagnosis:malfunctioning gastrostomy tube Postop Diagnosis:new gastrostomy tube Dressinx4 drain sponge applied to gastrostomy tube Transfer Data - Destination:home via ambulance Transfer Method:ambulance Complications: [place] Events: Report Given To:ambulance personal Completed Date/Time:02/23/24 3070 Completed By:Alyssa PARRA
--- NOTE | 2024-02-23 15:06 | SUR.PREOP ---
Attempted to call Mom to give her an update. Message left. Ambulance in route to transfer patient home. 1500 Tried calling Mom again no answer. Called Sister-next of kin to let her know patient would be leaving her shortly via ambulance coming to his home. Asked if someone would be their to receive patient. Sister said she or someone would be there. Gave approximate times pt arriving via ambulance of 1530. Awaiting arrival of ambulance for transfer.
--- NOTE | 2024-02-23 15:31 | SUR.PREOP ---
4909 thick yellow/white mucous drainage noted at the old tracheostomy site. suctioning drainage intermittently.
--- NOTE | 2024-02-23 15:41 | SUR.PREOP ---
1425 Gastrostomy tube was able to be placed at bedside so no IV needed.
--- NOTE | 2024-02-23 15:55 | SUR.PREOP ---
1555 called and updated Mom on status of Jaime. Discussed discharge instructions and supplies being sent with ambulance staff.
--- NOTE | 2024-02-23 16:16 | SUR.PREOP ---
1613: AMBULANCE ARRIVED FOR PT TRANSFER, REPORT GIVEN.
== END 2024-02-23 16:16 | disposition home or self-care (01) ==
LOC: ANHED 12:50 → ANHSURGERY 14:12 → ANHED 14:35 → ANHSURGERY 14:36
PROVIDERS: Emergency Provider Internal Medicine Gastroenterology; PCP Internal Medicine Infectious Disease; Visit Provider Internal Medicine Gastroenterology
PROC: 0DJ08ZZ Inspection of Upper Intestinal Tract, Via Natural or Artificial Opening Endoscopic (ICD-10-PCS; CPT 43235; principal; 2024-02-23 16:30)
DX: K94.23 Gastrostomy malfunction (principal); Z79.82 Long term (current) use of aspirin
CPT/HCPCS: 99212; G0463

== ENCOUNTER 2024-02-26 13:27 | Inpatient (IN) | payer MEDICARE, MEDICAID, SELFPAY ==
[2024-02-26] VITALS (9 sets, daily range): BP systolic 98–115; BP diastolic 65–87; PULSE 86–114; RESP 17–29; TEMP 36.6–36.7; O2SAT 93–99; BMI 20.2
--- NOTE | ~2024-02-26 | XR_ITS ---
XR chest 1V portable Ordering provider: Mara Weinberg MD History: 38 years Male with . worsening secretions . Comparison: February 26, 2024 FINDINGS: MEDIASTINUM: The cardiac silhouette is not enlarged. LUNGS: No effusions or pneumothorax. Opacification in the right lung base is seen which is minimally changed since previous examination. Prominent markings in the left lung base. OTHER: No free air under the diaphragm. IMPRESSION: Right basal pneumonia. Reviewed, dictated and finalized at location A. IMPRESSION: Right basal pneumonia.
--- NOTE | ~2024-02-26 | XR_ITS ---
EXAMINATION: XR chest 1V portable Exam Date/Time: 02/26/2024 14:10 CDT HISTORY: cough LUNG SOUNDS Comparison: 05/23/2023, 05/21/2023, 05/17/2023; CT cap 05/12/2023. RESULT: Lines, tubes, and devices: None. Lungs and pleura: Dense, segmental consolidation in the right lower lung. Chronic right hemidiaphrag m elevation. Minimal costophrenic angle blunting. Cardiomediastinal silhouette: Stable. Other: No acute osseous or upper abdominal finding. IMPRESSION: Right lower lung opacification may represent segmental pneumonia, aspiration should be considered in the differential. Possible trace right pleural effusion. Reviewed, dictated and finalized at location K. IMPRESSION: Right lower lung opacification may represent segmental pneumonia, aspiration sh ould be considered in the differential. Possible trace right pleural effusion.
--- NOTE | ~2024-02-26 | CT_ITS ---
EXAMINATION: CT soft tissue neck chest wo DATE: 02/27/2024 09:44 INDICATION: Tracheocutaneous fistula. Pneumonia. TECHNIQUE: Computed tomography (CT) of the neck and chest was performed without intravenous contrast. Automated exposure control and iterative reconstruction technique were employed. The dose-length pro duct was 957.92 mGy-cm. COMPARISON: chest CT 05/12/23 FINDINGS: CT NECK: There is diffuse brain volume loss. There is a 3.3 x 1.9 x 2.9 cm hyperdense subcutaneous ma ss in the posterior neck, consistent with hematoma. There are no pathologically enlarged lymph nodes. A tracheostomy defect is noted. The paranasal sinuses are clear. The orbits are normal. There is a s mall left mastoid effusion. There is mild cervical spondylosis. CT CHEST: There is mucous plugging in the right-sided bronchi. There are airspace opacities in right lung, worst in right lower lobe. There are centrilobular nodules in left lower lobe. These findings a re consistent with pneumonia. There is a trace left pleural effusion. The heart size is normal. No pe ricardial effusion. There is bilateral gynecomastia. There is mild thoracic spondylosis. IMPRESSION: 1. Bilateral pneumonia, worst in right lower lobe. 2. Right-sided mucous plugging. 3. Subcutaneous hematoma in the posterior neck. Reviewed, dictated and finalized at location A.
--- NOTE | ~2024-02-26 | XR_ITS ---
XR heel RT min 2V 03/03/2024 15:20 Indication: Heel ulcer Procedure: 2 views right heel Comparison: No prior studies for comparison. Findings: There is moderate soft tissue swelling overlying the heel. There is osteopenia. There is so ft tissue gas, consistent with ulceration. No foreign bodies. No evidence for underlying osteomyeliti s. Impression: 1: Moderate soft tissue swelling with gas involving the soft tissues overlying the heel posteriorly, consistent with ulceration. No underlying evidence of osteomyelitis. Reviewed, dictated and finalized at location B. Impression: 1: Moderate soft tissue swelling with gas involving the soft tissues overlying the heel posteriorly, consistent with ulceration. No underlying evidence of ost eomyelitis.
[2024-02-26 14:17] LABS: Basophils Percent Auto 0.6 % (0.2-1.2); Eosinophils Absolute Auto 0.1 K/mm3 (0-0.3); Eosinophils Percent Auto 1.3 % (0-4.4); Hematocrit 40.5 % (42.0-52.0); Hemoglobin 12.8 g/dL (14.0-18.0); Immature Granulocyte Absolute 0.02 K/mm3 (0.00-0.031); Immature Granulocyte Percent A 0.4 % (0-0.5); Lymphocytes Absolute Auto 0.98 K/mm3 (0.9-3.2); Lymphocytes Percent Auto 18.3 % (18.3-44.2); Mean Corpuscular HGB Conc 31.6 g/dl (32-36); Mean Corpuscular Hemoglobin 25.8 pg (26-34); Mean Corpuscular Volume 81.5 fl (80-100); Mean Platelet Volume 8.9 fl (7.4-10.4); Monocytes Absolute Auto 0.7 K/mm3 (0.1-0.6); Monocytes Percent Auto 12.7 % (2.6-8.5); Neutrophils Absolute Auto 3.6 K/mm3 (1.3-6.7); Neutrophils Percent Auto 66.7 % (45.5-73.1); Platelet Count Result 436 k/mm3 (150-375); Red Blood Count 4.97 M/mm3 (4.6-6.20); Red Cell Distribution Width 15.4 % (11.5-14.5); White Blood Count 5.4 K/mm3 (4.5-10.0)
[2024-02-26] MEDS: LORazepam INJ (*CRX) 2 MG/ML VIAL 0.5 MG IV PUSH (14:45)
[2024-02-26 15:10] LABS: Anion Gap 9 mmol/L (4-12); Blood Urea Nitrogen 11 mg/dL (9-20); Calcium 8.8 mg/dL (8.4-10.2); Carbon Dioxide 24 mmol/L (22-30); Chloride 103 mmol/L (98-107); Estimated CRCL calculation 133 ml/min; Estimated Glomerular Filt Rate > 60; Glucose 113 mg/dL (65-110); Sodium 136 mmol/L (137-145)
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
[2024-02-26] MEDS: PIPERACILLN/TAZ 3.375GM/NS50ML 3.375 GM/50 ML BAG IVPB ×2 (16:03→21:07)
[2024-02-26] MEDS: LACTATED RINGERS 1,000 ML 999 ML IV CONT (16:05)
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
--- NOTE | 2024-02-26 17:10 | PC.NURSE ---
GI md here to reinsert G-tube, unsuccessful attempt. Per GI pt needs NG tube and procedure to be done on Wednesday. Multiple attempts made to put NG tube, unsuccessful, pt is not able to swallow the tube.
--- NOTE | 2024-02-26 17:30 | ADMGEN ---
This patient, Jaime Tyler Jr., was admitted to Medical Room 259-01. Patient/family oriented to hospital policies and general routines including ID bracelet, bed and alarms, visiting hours, pain management, procedures, bathroom and other care routines, personal items, smoking policy, room service/diet, and visiting hours. Information on how to activate the Rapid Response Team has been discussed. Patient/Family are encouraged to report perceived risks to care and to ask questions if they do not understand what they are told or what they should do.
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
[2024-02-26 21:27] LABS: Glucose Point of Care 82 mg/dl (65-105)
--- NOTE | 2024-02-26 22:16 | PC.NURSE ---
Received report from Alison PARRA at 1544. Patient transferred to ICU room 1, arrived at 2145.
--- NOTE | 2024-02-26 22:18 | PC.NURSE ---
This patient, Jaime Tyler , was received from [facility]- on 02/26/24 at 2145. Family oriented to unit policies and routines - was called by Jessica PARRA, left message for mother. Patient is unable to comprehend.
[2024-02-27] VITALS (14 sets, daily range): BP systolic 88–116; BP diastolic 63–85; PULSE 68–103; RESP 18–29; TEMP 36.5–37.6; O2SAT 94–97
--- NOTE | 2024-02-27 00:31 | PC.NURSE ---
Attempt to place NG tube via nose was unsuccessful. Patient did not tolerate procedure well and tube would not advance past 40.
[2024-02-27] MEDS: PIPERACILLN/TAZ 3.375GM/NS50ML 3.375 GM/50 ML BAG IVPB (03:09)
[2024-02-27 07:09] LABS: MRSA (PCR) NOT DETECTED (NOT DETECTE)
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
[2024-02-27 09:34] LABS: Procalcitonin 0.1 ng/mL
[2024-02-27] MEDS: MEROPENEM 1 GM/NS 100 ML 1 GM/100 ML BAG IVPB ×2 (09:36→17:29)
[2024-02-27] MEDS: ENOXAPARIN 40 MG/0.4 ML SYRINGE SUB-Q (09:40)
[2024-02-27] MEDS: DEXTROSE 5%/0.45% SOD CHL 1,000 ML 75 ML IV CONT ×2 (09:47→23:37)
--- NOTE | 2024-02-27 09:56 | WPDGIPROGNO ---
Progress Note: A&P Assessment and Plan (1) Malfunction of gastrostomy tube: Code(s): K94.23 - Gastrostomy malfunction Status: Acute (2) Neurological dysfunction: Code(s): R29.90 - Unspecified symptoms and signs involving the nervous system Status: Acute Plan The patient was placed in the ICU for respiratory precautions since he had some secretions. He is on the schedule por PEG placement tomorrow. Time Spent With Patient Time with patient: less than 15 minutes Subjective Date/time seen: 02/27/24 09:56 Objective Data Vital Signs Vital Signs: Vital Signs - 24 hr 02/26/24 13:32 02/26/24 14:06 02/26/24 14:07 Temperature 98.0 F Pulse Rate 99 114 H Respiratory Rate 19 19 17 Blood Pressure 106/76 113/82 Pulse Oximetry 94 93 93 Oxygen Delivery Room Air Oxygen Flow Rate Fraction of Inspired Oxygen 02/26/24 17:12 02/26/24 18:34 02/26/24 21:10 Temperature 98 F Pulse Rate 86 109 H Respiratory Rate 20 24 H Blood Pressure 110/87 108/73 Pulse Oximetry 95 97 99 Oxygen Delivery High Flow Therapy with Tr Oxygen Flow Rate 20 Fraction of Inspired Oxygen 21 02/26/24 22:00 02/26/24 22:25 02/26/24 20:00 Temperature 98 F Pulse Rate 103 H 103 H Respiratory Rate 29 H 29 H Blood Pressure 98/65 L 115/86 Pulse Oximetry 96 96 Oxygen Delivery Room Air Oxygen Flow Rate Fraction of Inspired Oxygen 21 02/26/24 21:10 02/27/24 00:00 02/27/24 00:00 Temperature Pulse Rate 98 98 Respiratory Rate 29 H 29 H Blood Pressure 96/63 L Pulse Oximetry 97 94 94 Oxygen Delivery High Flow Therapy with Tr High Flow Therapy with Tr Oxygen Flow Rate 20 20 Fraction of Inspired Oxygen 21 21 02/27/24 00:00 02/27/24 02:00 02/27/24 02:00 Temperature Pulse Rate 97 95 95 Respiratory Rate 25 H Blood Pressure 88/77 L Pulse Oximetry 96 Oxygen Delivery Oxygen Flow Rate Fraction of Inspired Oxygen 02/27/24 04:00 02/27/24 04:00 02/27/24 04:00 Temperature 98.7 F Pulse Rate 83 83 83 Respiratory Rate 25 H 25 H Blood Pressure 99/71 L Pulse Oximetry 95 95 Oxygen Delivery High Flow Therapy with Tr Oxygen Flow Rate 20 Fraction of Inspired Oxygen 21 02/27/24 06:00 02/27/24 06:00 02/27/24 08:00 Temperature 98.7 F Pulse Rate 92 92 Respiratory Rate 19 Blood Pressure 103/75 Pulse Oximetry 94 95 Oxygen Delivery High Flow Therapy with Tr Oxygen Flow Rate 20 Fraction of Inspired Oxygen 21 02/27/24 08:00 02/27/24 08:00 02/27/24 08:00 Temperature 98.0 F Pulse Rate 90 94 Respiratory Rate 25 H Blood Pressure 96/71 L Pulse Oximetry 95 Oxygen Delivery Room Air Oxygen Flow Rate Fraction of Inspired Oxygen Intake/Output Intake/Output: Intake & Output 02/24/24 02/25/24 02/26/24 02/27/24 23:59 23:59 23:59 23:59 Intake Total 100 0 Output Total 75 Balance 100 -75 Meds/Results Medications: Active Medications Generic Name Dose Route Start Last Admin Trade Name Freq PRN Reason Stop Dose Admin Aspirin 81 mg 02/27/24 09:00 02/27/24 08:25 Aspirin 81 Mg Chewable Tablet FEED TUBE Not Given DAILY JESSA Bisacodyl 10 mg 02/26/24 22:21 Bisacodyl 10 Mg Suppository RECTAL DAILY PRN Constipation Enoxaparin Sodium 40 mg 02/27/24 09:00 02/27/24 09:40 Enoxaparin 40 Mg/0.4 Ml Syringe SUB-Q 40 mg DAILY JESSA Administration Meropenem 1 gm in 100 mls @ 200 mls/hr 02/27/24 09:00 02/27/24 09:36 IVPB 200 mls/hr Q8H JESSA Administration Dextrose/Sodium Chloride 1,000 mls @ 75 mls/hr 02/27/24 08:45 02/27/24 09:47 Dextrose 5% Sodium Chloride 0.45% IV CONT 75 mls/hr .[id number] JESSA Administration Radiology Results: ITS Impressions Chest X-Ray 02/26/24 14:26 IMPRESSION: Right lower lung opacification may represent segmental pneumonia, aspiration should be considered in the differential. Possible trace right pleural effusion. Lab
--- NOTE | 2024-02-27 12:32 | PM.IMPN ---
Progress Note: A&P Assessment and Plan (1) Malfunction of gastrostomy tube: Code(s): K94.23 - Gastrostomy malfunction Status: Acute Assessment and Plan: PEG tube got pulled out. He does not appear the patient can pulled the PEG out but may have gotten accidentally pulled. GI has been consulted for replacement and patient is scheduled for tomorrow Staff has attempted several times to place an NG and were unable to do so. If this delay in PEG tube placement will obtain a Dobbhoff under fluoroscopic guidance (2) Obstructive apnea, non-sleep: Code(s): R06.81 - Apnea, not elsewhere classified Status: Acute Assessment and Plan: Patient not a candidate for CPAP at this time. Oxygen supplementation (3) Aspiration pneumonia: Code(s): J69.0 - Pneumonitis due to inhalation of food and vomit Status: Acute Assessment and Plan: Patient has chronic secretions coming out of his stoma and on my exam they appear clear and mucousy. His WBC is normal and he is afebrile His chest x-ray shows right lower lung opacification which may be present aspiration pneumonia hence he was started on antibiotics. It could also be atelectasis as patient mostly lays with his right side down Check procalcitonin level. Check CT chest to further evaluate Change from Zosyn to meropenem due to history of resistant is Pseudomonas and Serratia (4) Tracheocutaneous fistula following tracheostomy: Code(s): J95.04 - Tracheo-esophageal fistula following tracheostomy Status: Acute Assessment and Plan: It appears that patient has developed a tracheocutaneous fistula as his stoma has not healed for years. He has a clear mucousy discharge coming from there and we have applied humidified oxygen. Obtain CT scan of the neck Will consult ENT (5) Constipation: Code(s): K59.00 - Constipation, unspecified Status: Acute Assessment and Plan: Bisacodyl suppository ordered Subjective Date/time seen: 02/27/24 12:32 Interval history: Unable to obtain any HPI due to non verbal status. Review of Systems Review of Systems: All systems reviewed & are unremarkable except as noted in HPI and below ROS unobtainable: Yes unobtainable due to medical condition and unobtainable due to mental status Exam Narrative: General: Frail cachectic gentleman Lungs/Chest: Trachea central Clear BS B/L, No crackles or wheezing. He has a small stoma at the tracheostomy site with clear mucousy discharge. Cardiac: RRR. Normal S1 S2. No murmurs Abdomen: Normal bowel sounds.. Soft. NT. ND. Extremities: No clubbing, cyanosis or edema. Warm : Gar in place Neurologic: His eyes open and looks with a blank look. He does not follow commands. He does close his eyes on examining his eyes.. Withdraws to pain in the left lower extremities. He has contractures of both arms at elbows. Skin: He has wound on right foot anteriorly both heels and sacral area GI: Other: old vertical laparotomy scar. Gastrostomy site in the left upper quadrant. Objective Data Vital Signs Vital Signs: Vital Signs - 24 hr 02/26/24 13:32 02/26/24 14:06 02/26/24 14:07 Temperature 98.0 F Pulse Rate 99 114 H Respiratory Rate 19 19 17 Blood Pressure 106/76 113/82 Pulse Oximetry 94 93 93 Oxygen Delivery Room Air Oxygen Flow Rate Fraction of Inspired Oxygen 02/26/24 17:12 02/26/24 18:34 02/26/24 21:10 Temperature 98 F Pulse Rate 86 109 H Respiratory Rate 20 24 H Blood Pressure 110/87 108/73 Pulse Oximetry 95 97 99 Oxygen Delivery High Flow Therapy with Tr Oxygen Flow Rate 20 Fraction of Inspired Oxygen 21 02/26/24 22:00 02/26/24 22:25 02/26/24 20:00 Temperature 98 F Pulse Rate 103 H 103 H Respiratory Rate 29 H 29 H Blood Pressure 98/65 L 115/86 Pulse Oximetry 96 96 Oxygen Delivery Room Air Oxygen Flow Rate Fraction of Inspired Oxygen 21 02/26/24 21:10 02/27/24 00
[2024-02-28] VITALS (19 sets, daily range): BP systolic 95–135; BP diastolic 58–95; PULSE 66–103; RESP 20–29; TEMP 36.1–37.3; O2SAT 95–100; BMI 20.5
[2024-02-28] MEDS: MEROPENEM 1 GM/NS 100 ML 1 GM/100 ML BAG IVPB ×3 (03:36→18:44)
[2024-02-28 04:32] LABS: Hematocrit 37.5 % (42.0-52.0); Hemoglobin 11.5 g/dL (14.0-18.0); Mean Corpuscular HGB Conc 30.7 g/dl (32-36); Mean Corpuscular Hemoglobin 25.4 pg (26-34); Mean Platelet Volume 8.5 fl (7.4-10.4); Platelet Count Result 406 k/mm3 (150-375); Red Blood Count 4.52 M/mm3 (4.6-6.20); Red Cell Distribution Width 15.3 % (11.5-14.5); White Blood Count 5.3 K/mm3 (4.5-10.0)
[2024-02-28 04:45] LABS: Alanine Aminotransferase 11 U/L (6-50); Albumin Level 3.6 g/dL (3.5-5.1); Alkaline Phosphatase 72 U/L (38-126); Anion Gap 7 mmol/L (4-12); Aspartate Amino Transferase 24 U/L (17-59); Bilirubin,Total 0.5 mg/dL (0.2-1.3); Blood Urea Nitrogen 7 mg/dL (9-20); Calcium 9.1 mg/dL (8.4-10.2); Carbon Dioxide 25 mmol/L (22-30); Chloride 106 mmol/L (98-107); Estimated CRCL calculation 124 ml/min; Estimated Glomerular Filt Rate > 60; Glucose 89 mg/dL (65-110); Potassium 3.9 mmol/L (3.4-5.0); Sodium 138 mmol/L (137-145)
[2024-02-28] MEDS: ENOXAPARIN 40 MG/0.4 ML SYRINGE SUB-Q (09:05)
--- NOTE | 2024-02-28 09:21 | WPDINTPN ---
Progress Note: A&P Assessment and Plan (1) Malfunction of gastrostomy tube: Code(s): K94.23 - Gastrostomy malfunction Status: Acute Assessment and Plan: PEG tube got pulled out. He does not appear the patient can pulled the PEG out but may have gotten accidentally pulled. GI has been consulted for replacement and patient is scheduled for later today Staff has attempted several times to place an NG and were unable to do so. If this delay in PEG tube placement will obtain a Dobbhoff under fluoroscopic guidance (2) Obstructive apnea, non-sleep: Code(s): R06.81 - Apnea, not elsewhere classified Status: Acute Assessment and Plan: Patient not a candidate for CPAP at this time. Continue Oxygen supplementation (3) Aspiration pneumonia: Code(s): J69.0 - Pneumonitis due to inhalation of food and vomit Status: Acute Assessment and Plan: Patient has chronic secretions coming out of his stoma and on my exam they appear clear and mucousy. His WBC is normal and he is afebrile His chest x-ray shows right lower lung opacification which may be present aspiration pneumonia hence he was started on antibiotics. It could also be atelectasis as patient mostly lays with his right side down procalcitonin level was low at 0.1. Chest and neck CT showed IMPRESSION: 1. Bilateral pneumonia, worst in right lower lobe. 2. Right-sided mucous plugging. 3. Subcutaneous hematoma in the posterior neck. This is likely combination of atelectasis and possible pneumonia from aspiration. Patient is always laying with right side down and has contractures. This is going to make management difficult improving atelectasis on the right base. 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 He has a clear mucousy discharge coming from there and we have applied humidified oxygen. Ideally a surgical option could be pursued but I anticipate the patient may need repeat tracheostomy is in near future due to inability to clear secretions hence will not consult ENT at this time. (5) Constipation: Code(s): K59.00 - Constipation, unspecified Status: Acute Assessment and Plan: Bisacodyl suppository ordered Plan DVT prophylaxis -Lovenox Nutrition - npo Code Status - Full Code Total Critical Care Time - 30 minutes Due to a high probability of clinically significant, life threatening deterioration, the patient required my highest level of preparedness to intervene emergently and I personally spent this critical care time directly and personally managing the patient. This critical care time included obtaining a history; examining the patient; pulse oximetry; ordering and review of studies; arranging urgent treatment with development of a management plan; evaluation of patient's response to treatment; frequent reassessment; and discussions with other providers. It was exclusive of separately billable procedures and treating other patients and teaching time. Please see Assessment and Plan section and the rest of the note for further information on patient assessment and treatment Subjective Date/time seen: 02/28/24 No significant change in patient's status overnight. Continues to be on IV fluids. Continues to be on humidified oxygen over his trach site. He is nonverbal and does not follow commands. Urine output charted in the chart is inaccurate as patient was leaking around his pleural weak catheter. A Gar catheter was inserted for more accurate monitoring. He has been afebrile. Review of system is not obtainable. Review of Systems Review of Systems: KIM restrepo
[2024-02-28] MEDS: COLLAGENASE OINT 30 GM TUBE 1 APPLIC TOPICAL (12:03)
--- NOTE | 2024-02-28 12:55 | PC.NURSE ---
Talked with assigned hospitalist for patient hospital status. stated patient can be downgraded to Med/surg.
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
--- NOTE | 2024-02-28 13:41 | WPDHPUPDATE1 ---
History and Physical Update Update Date/Time: 02/28/24 13:41 History and Physical has been reviewed, including an updated exam of the patient. The patient is currently being treated for pneumonia with meropenem. Risks, benefits, and alternatives have been discussed and questions answered. Mother agrees to proceed with PEG placement under anesthesia.
[2024-02-28] MEDS: LACTATED RINGERS 1,000 ML 150 ML IV CONT (14:08)
--- NOTE | 2024-02-28 14:56 | PC.NURSE ---
patient came back from GI post op at 1445. VSS
--- NOTE | 2024-02-28 15:20 | PC.NURSE ---
This patient, Jaime Tyler , was received from ICU 1 on 02/28/24 at 1520 . Patient/family oriented to unit policies and routines
--- NOTE | 2024-02-28 15:57 | PM.IMPN ---
Progress Note: A&P Assessment and Plan (1) Malfunction of gastrostomy tube: Code(s): K94.23 - Gastrostomy malfunction Status: Acute Assessment and Plan: PEG tube got pulled out. He does not appear the patient can pulled the PEG out but may have gotten accidentally pulled. GI has been consulted for replacement and patient is scheduled for today Staff has attempted several times to place an NG and were unable to do so. (2) Obstructive apnea, non-sleep: Code(s): R06.81 - Apnea, not elsewhere classified Status: Acute Assessment and Plan: Patient not a candidate for CPAP at this time. Continue Oxygen supplementation (3) Aspiration pneumonia: Code(s): J69.0 - Pneumonitis due to inhalation of food and vomit Status: Acute Assessment and Plan: Patient has chronic secretions coming out of his stoma and on my exam they appear clear and mucousy. His WBC is normal and he is afebrile His chest x-ray shows right lower lung opacification which may represent aspiration pneumonia hence he was started on antibiotics. It could also be atelectasis as patient mostly lays with his right side down procalcitonin level was low at 0.1. Chest and neck CT showed IMPRESSION: 1. Bilateral pneumonia, worst in right lower lobe. 2. Right-sided mucous plugging. 3. Subcutaneous hematoma in the posterior neck. This is likely combination of atelectasis and possible pneumonia from aspiration. Patient is always laying with right side down and has contractures. This is going to make management difficult improving atelectasis on the right base. Will order CPT while in the hospital Initially started on meropenem due to history of resistant Pseudomonas and Serratia Will switch to Levaquin and Flagyl from 02/29/2024 Levaquin was sensitive for Pseudomonas and Serratia in the past (4) Tracheocutaneous fistula following tracheostomy: Code(s): J95.04 - Tracheo-esophageal fistula following tracheostomy Status: Acute Assessment and Plan: It appears that patient has developed a tracheocutaneous fistula as his stoma has not healed for years. He has a clear mucousy discharge coming from there and we have applied humidified oxygen. Ideally a surgical option could be pursued but I anticipate the patient may need repeat tracheostomy is in near future due to inability to clear secretions hence will not consult ENT at this time. (5) Constipation: Code(s): K59.00 - Constipation, unspecified Status: Acute Assessment and Plan: Bisacodyl suppository ordered Plan DVT prophylaxis -Lovenox Nutrition - npo Code Status - Full Code Subjective Date/time seen: 02/28/24 15:57 Interval history: Going for G-tube placement today. No other overnight events. Remains on IV fluid. Patient nonverbal and not following command. Review of Systems Review of Systems: ROS unobtainable: Yes unobtainable due to mental status Exam Narrative: General: Frail cachectic gentleman not in acute distress Lungs/Chest: Trachea central Clear BS B/L, No crackles or wheezing. He has a small stoma at the tracheostomy site with clear mucousy discharge. Cardiac: RRR. Normal S1 S2. No murmurs Abdomen: Normal bowel sounds.. Soft. NT. ND. Extremities: No clubbing, cyanosis or edema. Warm : Gar in place Neurologic: Patient does not follow commands. Withdrew to pain in the left lower extremities. He has contractures of both arms at elbows. Skin: He has wound on right foot anteriorly both heels and sacral area Objective Data Vital Signs Vital Signs: Vital Signs - 24 hr 02/27/24 16:00 02/27/24 16:00 02/27/24 16:00 Temperature 97.7 F Pulse Rate 85 89 Respiratory Rate 24 H Blood Pressure 114/81 Pulse Oximetry 97 Oxygen Delivery Room Air Oxygen Flow Rate Fraction of Inspired Oxygen 02/27/24 18:00 02/27/24 18:00 02/27/24 20:00 Temperature 99.7 F H Pulse Rate 97 97 87 R
--- NOTE | 2024-02-28 16:11 | WPDGIPROGNO ---
Progress Note: A&P Assessment and Plan (1) Malfunction of gastrostomy tube: Code(s): K94.23 - Gastrostomy malfunction Status: Acute Plan Please see endoscopy report of PEG placement. The preexistent orifice in the left upper quadrant was utilized to place the new device. It can be used now for feeding and medications. Will sign off for now, please contact us if there are any questions or problems. Subjective Date/time seen: 02/28/24 16:11 Objective Data Vital Signs Vital Signs: Vital Signs - 24 hr 02/27/24 18:00 02/27/24 18:00 02/27/24 20:00 Temperature 99.7 F H Pulse Rate 97 97 87 Respiratory Rate 27 H 27 H Blood Pressure 115/83 111/75 Pulse Oximetry 95 97 Oxygen Delivery Oxygen Flow Rate Fraction of Inspired Oxygen 02/27/24 20:00 02/27/24 22:00 02/28/24 00:00 Temperature Pulse Rate 89 Respiratory Rate 18 Blood Pressure 107/75 Pulse Oximetry 94 Oxygen Delivery Room Air Room Air Oxygen Flow Rate Fraction of Inspired Oxygen 02/28/24 00:00 02/27/24 20:00 02/27/24 22:00 Temperature 99.2 F Pulse Rate 66 83 89 Respiratory Rate 21 H Blood Pressure 106/71 Pulse Oximetry 99 Oxygen Delivery Oxygen Flow Rate Fraction of Inspired Oxygen 02/28/24 00:00 02/28/24 02:00 02/28/24 02:00 Temperature Pulse Rate 79 89 89 Respiratory Rate 24 H Blood Pressure 108/74 Pulse Oximetry 96 Oxygen Delivery Oxygen Flow Rate Fraction of Inspired Oxygen 02/27/24 20:20 02/28/24 04:00 02/28/24 04:00 Temperature 99.0 F Pulse Rate 94 Respiratory Rate 28 H Blood Pressure 125/86 Pulse Oximetry 96 96 Oxygen Delivery High Flow Therapy with Tr Room Air Oxygen Flow Rate 20 Fraction of Inspired Oxygen 21 02/28/24 06:00 02/28/24 04:00 02/28/24 06:00 Temperature Pulse Rate 101 H 94 101 H Respiratory Rate 24 H Blood Pressure 118/82 Pulse Oximetry 99 Oxygen Delivery Oxygen Flow Rate Fraction of Inspired Oxygen 02/28/24 08:00 02/28/24 08:33 02/28/24 08:00 Temperature 98.0 F Pulse Rate 102 H 83 Respiratory Rate 24 H Blood Pressure 117/95 H Pulse Oximetry 98 97 Oxygen Delivery High Flow Therapy with Na Oxygen Flow Rate 20 Fraction of Inspired Oxygen 21 02/28/24 08:00 02/28/24 10:00 02/28/24 11:22 Temperature Pulse Rate 88 Respiratory Rate Blood Pressure Pulse Oximetry 98 Oxygen Delivery Room Air High Flow Therapy with Na Oxygen Flow Rate 20 Fraction of Inspired Oxygen 21 02/28/24 11:34 02/28/24 11:22 02/28/24 12:00 Temperature 98.2 F Pulse Rate 91 96 76 Respiratory Rate 26 H 24 H 22 H Blood Pressure 107/75 Pulse Oximetry 99 Oxygen Delivery Oxygen Flow Rate Fraction of Inspired Oxygen 02/28/24 12:00 02/28/24 12:00 02/28/24 13:41 Temperature 97.9 F Pulse Rate 91 86 Respiratory Rate 20 Blood Pressure 128/94 H Pulse Oximetry 100 Oxygen Delivery Room Air Room Air Oxygen Flow Rate Fraction of Inspired Oxygen 02/28/24 14:15 02/28/24 14:25 02/28/24 14:27 Temperature Pulse Rate 89 87 98 Respiratory Rate 28 H 29 H 20 Blood Pressure 95/58 L 95/61 L 107/71 Pulse Oximetry Oxygen Delivery Room Air Room Air Room Air Oxygen Flow Rate Fraction of Inspired Oxygen 02/28/24 12:00 02/28/24 14:45 Temperature Pulse Rate 75 96 Respiratory Rate 22 H 22 H Blood Pressure 107/75 134/91 H Pulse Oximetry 98 100 Oxygen Delivery Oxygen Flow Rate Fraction of Inspired Oxygen Intake/Output Intake/Output: Intake & Output 02/25/24 02/26/24 02/27/24 02/28/24 23:59 23:59 23:59 23:59 Intake Total 100 1200 400 Output Total 75 20 Balance 100 1125 380 Meds/Results Medications: Active Medications Generic Name Dose Route Start Last Admin Trade Name Freq PRN Reason Stop Dose Admin Aspirin 81 mg 02/27/24 09:00 02/28/24 09:01 Aspirin 81 Mg Chewable Tablet FEED TUBE Not Given
[2024-02-28] MEDS: DEXTROSE 5%/0.45% SOD CHL 1,000 ML 75 ML IV CONT (18:26)
[2024-02-29] VITALS (7 sets, daily range): BP systolic 120–170; BP diastolic 82–96; PULSE 99–108; RESP 16–26; TEMP 36.3–36.9; O2SAT 96–100
[2024-02-29 00:11] LABS: Glucose Point of Care 97 mg/dl (65-105)
[2024-02-29] MEDS: MEROPENEM 1 GM/NS 100 ML 1 GM/100 ML BAG IVPB (01:00)
[2024-02-29] MEDS: metroNIDAZOLE 500 MG TABLET PO ×3 (06:11→21:57)
[2024-02-29 08:15] LABS: Mean Corpuscular HGB Conc 31.4 g/dl (32-36); Mean Corpuscular Hemoglobin 25.8 pg (26-34); Mean Corpuscular Volume 82.2 fl (80-100); Mean Platelet Volume 8.5 fl (7.4-10.4); Platelet Count Result 399 k/mm3 (150-375); Red Blood Count 4.26 M/mm3 (4.6-6.20); Red Cell Distribution Width 15.2 % (11.5-14.5); White Blood Count 5.9 K/mm3 (4.5-10.0)
[2024-02-29 08:35] LABS: Alanine Aminotransferase 9 U/L (6-50); Albumin Level 3.3 g/dL (3.5-5.1); Alkaline Phosphatase 71 U/L (38-126); Anion Gap 7 mmol/L (4-12); Aspartate Amino Transferase 39 U/L (17-59); Bilirubin,Total 0.4 mg/dL (0.2-1.3); Blood Urea Nitrogen 4 mg/dL (9-20); Calcium 8.8 mg/dL (8.4-10.2); Carbon Dioxide 23 mmol/L (22-30); Chloride 105 mmol/L (98-107); Estimated CRCL calculation 129 ml/min; Estimated Glomerular Filt Rate > 60; Glucose 91 mg/dL (65-110); Magnesium 1.8 mg/dL (1.6-2.3); Potassium 3.8 mmol/L (3.4-5.0); Sodium 135 mmol/L (137-145)
[2024-02-29] MEDS: levoFLOXacin 750 MG TABLET PO (09:07)
[2024-02-29] MEDS: ASPIRIN 81 MG CHEWABLE TABLET FEED TUBE (09:07)
[2024-02-29] MEDS: ENOXAPARIN 40 MG/0.4 ML SYRINGE SUB-Q (09:07)
[2024-02-29] MEDS: COLLAGENASE OINT 30 GM TUBE 1 APPLIC TOPICAL (09:07)
[2024-02-29] MEDS: DEXTROSE 5%/0.45% SOD CHL 1,000 ML 75 ML IV CONT (09:10)
--- NOTE | 2024-02-29 09:51 | PCNFU ---
Nutrition Follow-Up Complete: Inability to meet estimated nutrition needs PO related to chronic paraplegia as evidenced by need for PEG tube feeding Goal:Meet estimated nutrition needs Pt not meeting goal, no orders yet for tube feeds. Continue with same goal Pt current nutrition is NPO, tube feedings via PEG. Nutrition recommendation: Start bolus feeds of Jevity 1.5 240ml 7x/day with 180ml flushes. This totals: 2520kcals, 107g protein, 1276ml fluid with 2536ml free water total over 24 hrs. Last recorded weight is 64.3 kg. Bowel Motility: +BM 02/26 Labs Reviewed: Hgb:11, HCT:35, Alb:3.3, NA:135, BUN:4, Cr:0.6 Meds Noted: lovenox Skin: no skin issues noted Additional Notes: Pt had PEG replaced yesterday, no tube feed orders at this time. Spoke with Dr Walker and orders to start feedings today. Recommend bolus feeds of Jevity 1.5, 240ml 7x/day with 180ml flushes. This mimics home regimen of Isosource 1.5 7, 8oz cans, per day. Monitoring tube feeding orders, tolerance, labs, weights, plan of care Follow up Wednesday and Wednesday per policy
--- NOTE | 2024-02-29 09:58 | PCDIET ---
Tube feeding Recommendation: bolus feeds of Jevity 1.5, 240ml 7x/day with 180ml flushes.
--- NOTE | 2024-02-29 15:59 | PM.IMPN ---
Progress Note: A&P Assessment and Plan (1) Tracheocutaneous fistula following tracheostomy: Code(s): J95.04 - Tracheo-esophageal fistula following tracheostomy Status: Acute (2) Infection of tracheostomy stoma: Code(s): J95.02 - Infection of tracheostomy stoma Status: Acute (3) Malfunction of gastrostomy tube: Code(s): K94.23 - Gastrostomy malfunction Status: Acute Plan Malfunctioning G-tube, resolved -G-tube replaced by GI consult 02/27 -consult dietitian: Resume home feeds - stop IV fluids D5 half NS Increased secretions -patient's secretions from stoma may be chronic -antibiotics: Completed 2 days of antibiotic meropenem, switched to Levaquin and Flagyl (based on old cultures) -low procalcitonin, afebrile, no leukocytosis, if continues to be stable will likely stop antibiotics tomorrow -right-sided mucus plugging, CPT ordered -resume home scopolamine patch, Robinul Chronic conditions -constipation: On bisacodyl suppository, docusate, senna, MiraLax -tracheoesophageal fistula, may be chronic -history of CVA: Aspirin -iron deficiency: Continue supplement -sinus tachycardic: resume home Coreg Diet: Tube feeds DVT prophylaxis: Lovenox Code status: Full code Disposition: Home in 1-2 days Time Spent With Patient Time: 35 minutes Subjective Date/time seen: 02/29/24 15:59 Interval history: Patient seen and examined. Peg tube replaced yesterday, starting tube feeds today. Patient is somnolent today. Will stop IV fluids. Home meds resumed. Review of Systems Review of Systems: Unable to obtain due to mental status Exam Narrative: - GENERAL: Chronically ill-appearing male - HENT: Moist mucous membranes. Trach to trach collar - LUNGS: Clear to auscultation bilaterally, no wheezing - CARDIOVASCULAR: Regular rate and rhythm. No murmur. No JVD. - ABDOMEN: Soft, nondistended, abdominal PEG tube in place - EXTREMITIES: No edema. Chronic deformities present of hands - NEUROLOGIC: Unable to assess, somnolent - PSYCHIATRIC: Unable to assess - SKIN: No rashes or lesions. Warm. Objective Data Vital Signs Vital Signs: Vital Signs - 24 hr 02/28/24 16:32 02/28/24 21:17 02/28/24 20:25 Temperature 36.1 C L Pulse Rate 103 H Respiratory Rate 22 H Blood Pressure 135/87 Pulse Oximetry 100 95 100 Oxygen Delivery High Flow Therapy with Tr High Flow Therapy with Tr Oxygen Flow Rate 20 20 Fraction of Inspired Oxygen 21 21 02/28/24 20:00 02/29/24 05:00 02/29/24 08:24 Temperature 36.3 C L Pulse Rate 108 H Respiratory Rate 26 H Blood Pressure 120/82 Pulse Oximetry 95 96 100 Oxygen Delivery High Flow Therapy with Tr High Flow Therapy with Tr Oxygen Flow Rate 20 20 Fraction of Inspired Oxygen 21 21 02/29/24 08:00 Temperature Pulse Rate 108 H Respiratory Rate 26 H Blood Pressure Pulse Oximetry 100 Oxygen Delivery High Flow Therapy with Tr Oxygen Flow Rate 10 Fraction of Inspired Oxygen 21 Intake/Output Intake/Output: Intake & Output 02/26/24 02/27/24 02/28/24 02/29/24 23:59 23:59 23:59 23:59 Intake Total 100 1200 1600 1000 Output Total 75 495 375 Balance 100 1125 1105 625 Meds/Results Medications: Active Medications Generic Name Dose Route Start Last Admin Trade Name Freq PRN Reason Stop Dose Admin Aspirin 81 mg 02/27/24 09:00 02/29/24 09:07 Aspirin 81 Mg Chewable Tablet FEED TUBE 81 mg DAILY EJSSA Administration Bisacodyl 10 mg 02/26/24 22:21 Bisacodyl 10 Mg Suppository RECTAL DAILY PRN Constipation Collagenase 1 applic 02/28/24 09:00 02/29/24 09:07 Collagenase Oint 30 Gm Tube TOPICAL 1 applic QAM [facility] Administration Enoxaparin Sodium 40 mg 02/27/24 09:00 02/29/24 09:07 Enoxaparin 40 Mg/0.4 Ml Syringe SUB-Q 40 mg DAILY [facility] Administration Dextrose/Sodium Chloride 1,000 mls @ 75 mls/hr 02/27/24 08:45 02/29/24 13:49 Dextrose 5% Sodium Chloride 0.45
--- NOTE | 2024-02-29 16:00 | PC.NURSE ---
Dr Walker wants to keep urinary catheter in and will reevaluate tomorrow.
[2024-02-29] MEDS: SCOPOLAMINE 1 MG PATCH 1 PATCH TRANSDERM (17:08)
[2024-02-29] MEDS: GLYCOPYRROLATE 1 MG TABLET FEED TUBE ×2 (17:11→22:00)
[2024-02-29] MEDS: FERROUS SULFATE LIQUID 325 MG/7.4 ML ELIXIR PO (17:11)
[2024-02-29] MEDS: carvediloL 12.5 MG TABLET FEED TUBE (21:57)
[2024-03-01] VITALS (8 sets, daily range): BP systolic 107–131; BP diastolic 79–83; PULSE 86–96; RESP 18–24; TEMP 36.1–36.9; O2SAT 95–99
[2024-03-01] MEDS: metroNIDAZOLE 500 MG TABLET PO ×3 (05:42→21:03)
[2024-03-01] MEDS: GLYCOPYRROLATE 1 MG TABLET FEED TUBE (05:43)
[2024-03-01 06:22] LABS: Hematocrit 35.8 % (42.0-52.0); Hemoglobin 11.2 g/dL (14.0-18.0); Mean Corpuscular HGB Conc 31.3 g/dl (32-36); Mean Corpuscular Hemoglobin 25.7 pg (26-34); Mean Corpuscular Volume 82.3 fl (80-100); Mean Platelet Volume 8.6 fl (7.4-10.4); Platelet Count Result 401 k/mm3 (150-375); Red Blood Count 4.35 M/mm3 (4.6-6.20); Red Cell Distribution Width 14.9 % (11.5-14.5); White Blood Count 5.4 K/mm3 (4.5-10.0)
[2024-03-01 06:43] LABS: Alanine Aminotransferase 11 U/L (6-50); Albumin Level 3.2 g/dL (3.5-5.1); Alkaline Phosphatase 81 U/L (38-126); Anion Gap 6 mmol/L (4-12); Aspartate Amino Transferase 21 U/L (17-59); Bilirubin,Total 0.3 mg/dL (0.2-1.3); Blood Urea Nitrogen 7 mg/dL (9-20); Calcium 8.9 mg/dL (8.4-10.2); Carbon Dioxide 27 mmol/L (22-30); Chloride 102 mmol/L (98-107); Estimated CRCL calculation 116 ml/min; Estimated Glomerular Filt Rate > 60; Glucose 102 mg/dL (65-110); Magnesium 1.9 mg/dL (1.6-2.3); Potassium 4.3 mmol/L (3.4-5.0); Sodium 135 mmol/L (137-145)
[2024-03-01] MEDS: FERROUS SULFATE LIQUID 325 MG/7.4 ML ELIXIR PO ×2 (08:47→17:45)
[2024-03-01] MEDS: carvediloL 12.5 MG TABLET FEED TUBE ×2 (08:47→21:03)
[2024-03-01] MEDS: SENNOSIDES 8.6 MG TABLET FEED TUBE (08:47)
[2024-03-01] MEDS: levoFLOXacin 750 MG TABLET PO (08:47)
[2024-03-01] MEDS: ASPIRIN 81 MG CHEWABLE TABLET FEED TUBE (08:47)
[2024-03-01] MEDS: COLLAGENASE OINT 30 GM TUBE 1 APPLIC TOPICAL (08:48)
[2024-03-01] MEDS: ENOXAPARIN 40 MG/0.4 ML SYRINGE SUB-Q (08:49)
[2024-03-01] MEDS: DOCUSATE SODIUM LIQ 100 MG/10 ML UDC FEED TUBE (08:49)
--- NOTE | 2024-03-01 10:36 | PM.IMPN ---
Progress Note: A&P Assessment and Plan (1) Constipation: Code(s): K59.00 - Constipation, unspecified Status: Acute (2) Tracheocutaneous fistula following tracheostomy: Code(s): J95.04 - Tracheo-esophageal fistula following tracheostomy Status: Acute (3) Infection of tracheostomy stoma: Code(s): J95.02 - Infection of tracheostomy stoma Status: Acute (4) Malfunction of gastrostomy tube: Code(s): K94.23 - Gastrostomy malfunction Status: Acute (5) Obstructive apnea, non-sleep: Code(s): R06.81 - Apnea, not elsewhere classified Status: Acute (6) Aspiration pneumonia: Code(s): J69.0 - Pneumonitis due to inhalation of food and vomit Status: Acute Assessment and Plan: pneumonitis without pneumonia Plan Malfunctioning G-tube, resolved -G-tube replaced by GI consult 02/27 -consult dietitian: Resumed home feeds Right chest mucus plug -patient's secretions from stoma are chronic -antibiotics: 2 days of merrem then levaquin/flagyl. stop antibiotics -low procalcitonin, afebrile, no leukocytosis -right-sided mucus plugging, CPT ordered, increase to QID. mucomyst with duoneb, will need frequent suctioning -stop scopolamine patch, Robinul as that likely led to his mucus plug Chronic conditions -constipation: On bisacodyl suppository, docusate, senna, MiraLax -tracheoesophageal fistula, chronic -history of CVA: Aspirin -iron deficiency: Continue supplement -sinus tachycardic: resume home Coreg Diet: Tube feeds DVT prophylaxis: Lovenox Code status: Full code Disposition: Home in 1-2 days Time Spent With Patient Time: 35 minutes Subjective Date/time seen: 03/01/24 10:36 Interval history: Patient seen examined. He is more awake today. With his mucus plug will discontinue scopolamine and Robinul. Adding Mucomyst and DuoNeb to help with increasing chest PT for the mucus plug. Will remove his Gar catheter, not chronic. Review of Systems Review of Systems: Unable to obtain due to mental status Exam Narrative: - GENERAL: Chronically ill-appearing male - HENT: Moist mucous membranes. Trach to trach collar - LUNGS: Clear to auscultation bilaterally, no wheezing - CARDIOVASCULAR: Regular rate and rhythm. No murmur. No JVD. - ABDOMEN: Soft, nondistended, abdominal PEG tube in place - EXTREMITIES: No edema. Chronic deformities present of hands - NEUROLOGIC: Unable to assess, arousable - PSYCHIATRIC: Unable to assess - SKIN: No rashes or lesions. Warm. Objective Data Vital Signs Vital Signs: Vital Signs - 24 hr 02/29/24 16:00 02/29/24 20:15 02/29/24 21:57 Temperature 36.9 C 36.9 C Pulse Rate 105 H 99 99 Respiratory Rate 22 H 16 Blood Pressure 170/93 H 130/96 H Pulse Oximetry 100 100 Oxygen Delivery Oxygen Flow Rate Fraction of Inspired Oxygen 02/29/24 20:00 03/01/24 04:35 03/01/24 08:02 Temperature 36.9 C Pulse Rate 93 Respiratory Rate 18 Blood Pressure 107/79 Pulse Oximetry 100 99 95 Oxygen Delivery High Flow Therapy with Tr High Flow Therapy with Tr Oxygen Flow Rate 10 20 Fraction of Inspired Oxygen 21 Intake/Output Intake/Output: Intake & Output 02/27/24 02/28/24 02/29/24 03/01/24 23:59 23:59 23:59 23:59 Intake Total 1200 1600 1000 Output Total 75 495 700 500 Balance 1125 1105 300 -500 Meds/Results Medications: Active Medications Generic Name Dose Route Start Last Admin Trade Name Freq PRN Reason Stop Dose Admin Acetylcysteine 200 mg 03/01/24 14:00 Acetylcysteine 20% Inhal Soln 800 Mg/4 Ml Vial INHALATION Q6HRT [facility] Albuterol/Ipratropium 3 ml 03/01/24 14:00 Ipratropium 0.5 Mg/Albuterol Sulfate 2.5 Mg Ampul.Neb 3 Ml INHALATION Q6HRT [facility] Aspirin 81 mg 02/27/24 09:00 03/01/24 08:47 Aspirin 81 Mg Chewable Tablet FEED TUBE 81 mg DAILY [facility] Administration Bisacodyl 10 mg 02/26/24 22:21 Bisacodyl 10 Mg Suppository REC
[2024-03-01] MEDS: IPRATROPIUM 0.5 MG/ALBUTEROL SULFATE 2.5 MG AMPUL.NEB 3 ML INHALATION (12:50)
[2024-03-01] MEDS: ACETYLCYSTEINE 20% INHAL SOLN 800 MG/4 ML VIAL 200 MG INHALATION (12:50)
[2024-03-02] VITALS (13 sets, daily range): BP systolic 128–140; BP diastolic 84–102; PULSE 64–103; RESP 16–22; TEMP 36.4–36.6; O2SAT 93–100
[2024-03-02] MEDS: ACETYLCYSTEINE 20% INHAL SOLN 800 MG/4 ML VIAL 200 MG INHALATION ×4 (02:39→21:57)
[2024-03-02] MEDS: IPRATROPIUM 0.5 MG/ALBUTEROL SULFATE 2.5 MG AMPUL.NEB 3 ML INHALATION ×4 (02:39→21:57)
[2024-03-02] MEDS: metroNIDAZOLE 500 MG TABLET PO ×3 (05:03→21:03)
[2024-03-02 08:26] LABS: Hematocrit 38.5 % (42.0-52.0); Hemoglobin 11.8 g/dL (14.0-18.0); Mean Corpuscular HGB Conc 30.6 g/dl (32-36); Mean Corpuscular Hemoglobin 25.5 pg (26-34); Mean Corpuscular Volume 83.3 fl (80-100); Mean Platelet Volume 8.7 fl (7.4-10.4); Platelet Count Result 394 k/mm3 (150-375); Red Blood Count 4.62 M/mm3 (4.6-6.20); Red Cell Distribution Width 15.2 % (11.5-14.5); White Blood Count 4.8 K/mm3 (4.5-10.0)
[2024-03-02 08:31] LABS: Alanine Aminotransferase 11 U/L (6-50); Albumin Level 3.4 g/dL (3.5-5.1); Alkaline Phosphatase 77 U/L (38-126); Anion Gap 5 mmol/L (4-12); Aspartate Amino Transferase 24 U/L (17-59); Bilirubin,Total 0.2 mg/dL (0.2-1.3); Blood Urea Nitrogen 12 mg/dL (9-20); Calcium 9.2 mg/dL (8.4-10.2); Carbon Dioxide 30 mmol/L (22-30); Chloride 101 mmol/L (98-107); Estimated CRCL calculation 135 ml/min; Estimated Glomerular Filt Rate > 60; Glucose 86 mg/dL (65-110); Phosphorus 3.9 mg/dL (2.5-4.5); Potassium 4.5 mmol/L (3.4-5.0); Sodium 136 mmol/L (137-145)
--- NOTE | 2024-03-02 08:31 | PM.IMPN ---
Progress Note: A&P Assessment and Plan (1) Constipation: Code(s): K59.00 - Constipation, unspecified Status: Acute (2) Tracheocutaneous fistula following tracheostomy: Code(s): J95.04 - Tracheo-esophageal fistula following tracheostomy Status: Acute (3) Infection of tracheostomy stoma: Code(s): J95.02 - Infection of tracheostomy stoma Status: Acute (4) Malfunction of gastrostomy tube: Code(s): K94.23 - Gastrostomy malfunction Status: Acute (5) Obstructive apnea, non-sleep: Code(s): R06.81 - Apnea, not elsewhere classified Status: Acute (6) Aspiration pneumonia: Code(s): J69.0 - Pneumonitis due to inhalation of food and vomit Status: Acute Assessment and Plan: pneumonitis without pneumonia Plan Malfunctioning G-tube, resolved G-tube replaced by GI consult 02/27 Patient was found have residual content is stomach after bolus feeding Plans to changed to continuous feeding to reduce those risks of aspiration consult dietitian for continues tube feeding Right chest mucus plug -patient's secretions from stoma are chronic -antibiotics: 2 days of merrem then levaquin/flagyl. stop antibiotics low procalcitonin, afebrile, no leukocytosis right-sided mucus plugging, CPT ordered, increase to QID. mucomyst with duoneb, will need frequent suctioning -stop scopolamine patch, Chantal as that likely led to his mucus plug Chronic conditions -constipation: On bisacodyl suppository, docusate, senna, MiraLax -tracheoesophageal fistula, chronic -history of CVA: Aspirin -iron deficiency: Continue supplement -sinus tachycardic: resume home Coreg Diet: Tube feeds DVT prophylaxis: Lovenox Code status: Full code Disposition: Home in 1-2 days Subjective Date/time seen: 03/02/24 08:31 Interval history: I saw examined patient today, patient is nonverbal, unable to follow commands, some secretion in the throat. Per nurse report, patient is on bolus feeding, and patient was found have residual in stomach. Patient is on high-flow oxygen therapy Exam Narrative: - GENERAL: Chronically ill-appearing male - HENT: Moist mucous membranes. Trach to trach collar - LUNGS: Clear to auscultation bilaterally, no wheezing - CARDIOVASCULAR: Regular rate and rhythm. No murmur. No JVD. - ABDOMEN: Soft, nondistended, abdominal PEG tube in place - EXTREMITIES: No edema. Contracture of extremities, - NEUROLOGIC: Unable to assess, arousable, nonverbal - PSYCHIATRIC: Unable to assess - SKIN: No rashes or lesions. Warm. Objective Data Vital Signs Vital Signs: Vital Signs - 24 hr 03/01/24 12:54 03/01/24 13:02 03/01/24 13:48 Temperature 97 F L Pulse Rate 96 89 Respiratory Rate 24 H 24 H 22 H Blood Pressure 113/83 Pulse Oximetry 96 Oxygen Delivery Oxygen Flow Rate Fraction of Inspired Oxygen 03/01/24 21:03 03/01/24 21:06 03/02/24 02:40 Temperature 98.4 F Pulse Rate 87 86 Respiratory Rate 18 Blood Pressure 131/81 Pulse Oximetry 97 95 Oxygen Delivery High Flow Therapy with Tr Oxygen Flow Rate 20 Fraction of Inspired Oxygen 21 03/02/24 02:40 03/02/24 02:54 03/02/24 05:28 Temperature 97.7 F Pulse Rate 87 88 91 Respiratory Rate 20 20 18 Blood Pressure 128/89 Pulse Oximetry 95 Oxygen Delivery Oxygen Flow Rate Fraction of Inspired Oxygen 03/02/24 07:23 03/02/24 07:23 03/02/24 07:36 Temperature Pulse Rate 89 86 Respiratory Rate 20 20 Blood Pressure Pulse Oximetry 95 Oxygen Delivery High Flow Therapy with Tr Oxygen Flow Rate 20 Fraction of Inspired Oxygen 21 Intake/Output Intake/Output: Intake & Output 02/28/24 02/29/24 03/01/24 03/02/24 23:59 23:59 23:59 23:59 Intake Total 1600 1000 0 Output Total 408 439 5701 Balance 1105 300 -1150 0 Meds/Results Medications: Active Medications Generic Name Dose Route Start Last Admin Trade Name Freq PRN Reason
[2024-03-02] MEDS: DOCUSATE SODIUM LIQ 100 MG/10 ML UDC FEED TUBE (09:20)
[2024-03-02] MEDS: ENOXAPARIN 40 MG/0.4 ML SYRINGE SUB-Q (09:21)
[2024-03-02] MEDS: ASPIRIN 81 MG CHEWABLE TABLET FEED TUBE (09:22)
[2024-03-02] MEDS: carvediloL 12.5 MG TABLET FEED TUBE ×2 (09:22→21:02)
[2024-03-02] MEDS: SENNOSIDES 8.6 MG TABLET FEED TUBE (09:22)
[2024-03-02] MEDS: levoFLOXacin 750 MG TABLET PO (09:23)
--- NOTE | 2024-03-02 10:52 | PC.NURSE ---
Dr. Whitt was notified that pt frequently coughing up copious, santoyo, thick secretions. concerned for aspiration. Changing to continuous feeds to decrease aspiration risk. Spoke with Dinora. Pt weight is correct as listed. Rate changed to Jevity 1.5 70mls/hr with 200ml free water flushes Q4hr.
--- NOTE | 2024-03-02 12:40 | PCDIET ---
Request for change of tube feeding to continuous rate. Dr Whitt changed rate to 70ml/hr, 200ml flushes q 4 hrs. This totals 2310kcals over 22 hrs. Nursing confirmed current weight is correct. Agree with orders. Will monitor.
[2024-03-02] MEDS: COLLAGENASE OINT 30 GM TUBE 1 APPLIC TOPICAL (14:31)
[2024-03-02] MEDS: FERROUS SULFATE LIQUID 325 MG/7.4 ML ELIXIR PO (16:39)
[2024-03-03] VITALS (18 sets, daily range): BP systolic 104–146; BP diastolic 69–103; PULSE 74–119; RESP 16–22; TEMP 36.4–37.4; O2SAT 85–100
[2024-03-03] MEDS: IPRATROPIUM 0.5 MG/ALBUTEROL SULFATE 2.5 MG AMPUL.NEB 3 ML INHALATION ×4 (03:00→20:04)
[2024-03-03] MEDS: metroNIDAZOLE 500 MG TABLET PO ×3 (05:22→20:40)
[2024-03-03 06:25] LABS: Hematocrit 37.8 % (42.0-52.0); Hemoglobin 11.9 g/dL (14.0-18.0); Mean Corpuscular HGB Conc 31.5 g/dl (32-36); Mean Corpuscular Hemoglobin 25.8 pg (26-34); Mean Corpuscular Volume 81.8 fl (80-100); Mean Platelet Volume 8.5 fl (7.4-10.4); Platelet Count Result 413 k/mm3 (150-375); Red Blood Count 4.62 M/mm3 (4.6-6.20); White Blood Count 5.1 K/mm3 (4.5-10.0)
[2024-03-03 06:36] LABS: Alanine Aminotransferase 11 U/L (6-50); Albumin Level 3.3 g/dL (3.5-5.1); Alkaline Phosphatase 74 U/L (38-126); Anion Gap 4 mmol/L (4-12); Aspartate Amino Transferase 22 U/L (17-59); Bilirubin,Total 0.2 mg/dL (0.2-1.3); Blood Urea Nitrogen 11 mg/dL (9-20); Calcium 9.3 mg/dL (8.4-10.2); Carbon Dioxide 30 mmol/L (22-30); Chloride 102 mmol/L (98-107); Estimated CRCL calculation 118 ml/min; Estimated Glomerular Filt Rate > 60; Glucose 120 mg/dL (65-110); Potassium 4.2 mmol/L (3.4-5.0); Sodium 136 mmol/L (137-145)
[2024-03-03] MEDS: ACETYLCYSTEINE 20% INHAL SOLN 800 MG/4 ML VIAL 200 MG INHALATION ×4 (06:44→20:04)
[2024-03-03] MEDS: levoFLOXacin 750 MG TABLET PO (09:33)
[2024-03-03] MEDS: carvediloL 12.5 MG TABLET FEED TUBE ×2 (09:34→20:40)
[2024-03-03] MEDS: SENNOSIDES 8.6 MG TABLET FEED TUBE (09:34)
[2024-03-03] MEDS: COLLAGENASE OINT 30 GM TUBE 1 APPLIC TOPICAL (09:34)
[2024-03-03] MEDS: FERROUS SULFATE LIQUID 325 MG/7.4 ML ELIXIR PO ×2 (09:34→17:42)
[2024-03-03] MEDS: ENOXAPARIN 40 MG/0.4 ML SYRINGE SUB-Q (09:34)
[2024-03-03] MEDS: ASPIRIN 81 MG CHEWABLE TABLET FEED TUBE (09:34)
[2024-03-03] MEDS: DOCUSATE SODIUM LIQ 100 MG/10 ML UDC FEED TUBE (09:34)
--- NOTE | 2024-03-03 11:09 | PCNFU ---
Nutrition Follow-Up Complete: Inability to meet estimated nutrition needs PO related to chronic paraplegia as evidenced by need for PEG tube feeding Meet estimated nutrition needs- Goal being met. Nutrition needs being met 100% with tube feeding at 35 kcal/kg and 1.4 g protein/kg. Goal: Pt current nutrition is Jevity 1.5 @ 70 ml/h with 200 ml flushes q 4 hours. Nutrition recommendation: No new nutrition recommendations. MD requested pt be switched to continuous feedings here. Home TF Jevity 1.5 bolus 240 ml 7x per day. Flush 180 ml q 4 hours. Last recorded weight is 67.8 kg. Bowel Motility: +1 BM 03/02/24 Labs Reviewed: Hgb 11,0, Hct 37.8, Alb 3.3, Na 136, Glu 120 Meds Noted: Colace, senna, miralax Skin: Pressure injuries: Unstageable R heel, Stage III R ankle. Protein intake is appropriate for wounds Additional Notes: MD requested pt be switched to continuous feedings because of residuals. Charted residuals 15 ml. If pump needs to be continued at home, will have to get approval. Monitoring tube feeding orders, tolerance, labs, weights, plan of care Follow up Wednesday and Wednesday per policy
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
--- NOTE | 2024-03-03 23:59 | PC.NURSE ---
Addendum entered by Giseal Platt 03/04/24 01:22: per Dr. Weinberg it is okay to hold tube feeding until 0600 Original Note: tube feed paused at this time due to patient throwing up while being suctioned
[2024-03-04] VITALS (27 sets, daily range): BP systolic 91–152; BP diastolic 50–102; PULSE 63–103; RESP 16–24; TEMP 36.4–37.2; O2SAT 20–100
--- NOTE | 2024-03-04 01:35 | PC.NURSE ---
Pt. arrived to room [address] [place] [address]. Report received from Gisela PARRA
--- NOTE | 2024-03-04 01:43 | PC.NURSE ---
This patient, Jaime Tyler , was transferred to IMU 207 on 03/04/24 at 0143. Personal belongings sent with patient. Report given to Maggie. Appropriate documentation sent with patient.
[2024-03-04] MEDS: IPRATROPIUM 0.5 MG/ALBUTEROL SULFATE 2.5 MG AMPUL.NEB 3 ML INHALATION ×4 (02:29→20:13)
[2024-03-04] MEDS: metroNIDAZOLE 500 MG TABLET PO ×3 (06:49→22:35)
[2024-03-04] MEDS: ACETYLCYSTEINE 20% INHAL SOLN 800 MG/4 ML VIAL 200 MG INHALATION ×3 (07:06→20:13)
[2024-03-04 08:19] LABS: Alanine Aminotransferase 10 U/L (6-50); Albumin Level 3.1 g/dL (3.5-5.1); Alkaline Phosphatase 58 U/L (38-126); Anion Gap 10 mmol/L (4-12); Aspartate Amino Transferase 26 U/L (17-59); Bilirubin,Total 0.5 mg/dL (0.2-1.3); Blood Urea Nitrogen 13 mg/dL (9-20); CRP 2.4 mg/dL (<1.0); Calcium 9.3 mg/dL (8.4-10.2); Carbon Dioxide 21 mmol/L (22-30); Chloride 105 mmol/L (98-107); Estimated CRCL calculation 130 ml/min; Estimated Glomerular Filt Rate > 60; Glucose 82 mg/dL (65-110); Sodium 136 mmol/L (137-145)
[2024-03-04] MEDS: carvediloL 12.5 MG TABLET FEED TUBE (08:38)
[2024-03-04] MEDS: FERROUS SULFATE LIQUID 325 MG/7.4 ML ELIXIR PO ×2 (08:38→15:56)
[2024-03-04] MEDS: levoFLOXacin 750 MG TABLET PO (08:38)
[2024-03-04] MEDS: ENOXAPARIN 40 MG/0.4 ML SYRINGE SUB-Q (08:38)
[2024-03-04] MEDS: DOCUSATE SODIUM LIQ 100 MG/10 ML UDC FEED TUBE (08:39)
[2024-03-04] MEDS: ASPIRIN 81 MG CHEWABLE TABLET FEED TUBE (08:39)
[2024-03-04] MEDS: SENNOSIDES 8.6 MG TABLET FEED TUBE (08:39)
[2024-03-04 08:45] LABS: Basophils Percent Auto 0.4 % (0.2-1.2); Eosinophils Absolute Auto 0.1 K/mm3 (0-0.3); Eosinophils Percent Auto 1.9 % (0-4.4); Hematocrit 37.2 % (42.0-52.0); Hemoglobin 11.8 g/dL (14.0-18.0); Immature Granulocyte Absolute 0.01 K/mm3 (0.00-0.031); Immature Granulocyte Percent A 0.2 % (0-0.5); Lymphocytes Absolute Auto 1.26 K/mm3 (0.9-3.2); Lymphocytes Percent Auto 22.1 % (18.3-44.2); Mean Corpuscular HGB Conc 31.7 g/dl (32-36); Mean Corpuscular Volume 81.9 fl (80-100); Mean Platelet Volume 8.5 fl (7.4-10.4); Monocytes Absolute Auto 0.5 K/mm3 (0.1-0.6); Monocytes Percent Auto 9.5 % (2.6-8.5); Neutrophils Absolute Auto 3.8 K/mm3 (1.3-6.7); Neutrophils Percent Auto 65.9 % (45.5-73.1); Platelet Count Result 407 k/mm3 (150-375); Red Blood Count 4.54 M/mm3 (4.6-6.20); Red Cell Distribution Width 15.3 % (11.5-14.5); White Blood Count 5.7 K/mm3 (4.5-10.0)
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
[2024-03-04 10:01] LABS: Erythrocyte Sedimentation Rate 64 mm/hr (0-20)
[2024-03-04] MEDS: COLLAGENASE OINT 30 GM TUBE 1 APPLIC TOPICAL (15:56)
[2024-03-05] VITALS (23 sets, daily range): BP systolic 111–148; BP diastolic 82–112; PULSE 85–110; RESP 16–112; TEMP 36.7–37.1; O2SAT 96–100
[2024-03-05] MEDS: ACETYLCYSTEINE 20% INHAL SOLN 800 MG/4 ML VIAL 200 MG INHALATION ×4 (02:16→20:17)
[2024-03-05] MEDS: IPRATROPIUM 0.5 MG/ALBUTEROL SULFATE 2.5 MG AMPUL.NEB 3 ML INHALATION ×4 (02:16→20:17)
[2024-03-05] MEDS: ENOXAPARIN 40 MG/0.4 ML SYRINGE SUB-Q (08:54)
[2024-03-05] MEDS: ASPIRIN 81 MG CHEWABLE TABLET FEED TUBE (08:54)
[2024-03-05] MEDS: SENNOSIDES 8.6 MG TABLET FEED TUBE (08:54)
[2024-03-05] MEDS: DOCUSATE SODIUM LIQ 100 MG/10 ML UDC FEED TUBE (08:54)
[2024-03-05] MEDS: FERROUS SULFATE LIQUID 325 MG/7.4 ML ELIXIR PO ×2 (08:54→18:08)
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
[2024-03-05 09:44] LABS: Anion Gap 5 mmol/L (4-12); Blood Urea Nitrogen 14 mg/dL (9-20); Calcium 9.2 mg/dL (8.4-10.2); Carbon Dioxide 28 mmol/L (22-30); Chloride 101 mmol/L (98-107); Estimated CRCL calculation 124 ml/min; Estimated Glomerular Filt Rate > 60; Glucose 113 mg/dL (65-110); Potassium 4.1 mmol/L (3.4-5.0); Sodium 134 mmol/L (137-145)
[2024-03-05 09:48] LABS: Basophils Percent Auto 0.4 % (0.2-1.2); Eosinophils Absolute Auto 0.2 K/mm3 (0-0.3); Eosinophils Percent Auto 4.2 % (0-4.4); Hematocrit 35.8 % (42.0-52.0); Hemoglobin 11.4 g/dL (14.0-18.0); Immature Granulocyte Absolute 0.01 K/mm3 (0.00-0.031); Immature Granulocyte Percent A 0.2 % (0-0.5); Lymphocytes Percent Auto 26.4 % (18.3-44.2); Mean Corpuscular HGB Conc 31.8 g/dl (32-36); Mean Corpuscular Hemoglobin 26.2 pg (26-34); Mean Corpuscular Volume 82.3 fl (80-100); Mean Platelet Volume 8.7 fl (7.4-10.4); Monocytes Absolute Auto 0.5 K/mm3 (0.1-0.6); Monocytes Percent Auto 10.1 % (2.6-8.5); Neutrophils Absolute Auto 2.7 K/mm3 (1.3-6.7); Neutrophils Percent Auto 58.7 % (45.5-73.1); Platelet Count Result 423 k/mm3 (150-375); Red Blood Count 4.35 M/mm3 (4.6-6.20); Red Cell Distribution Width 15.3 % (11.5-14.5); White Blood Count 4.5 K/mm3 (4.5-10.0)
[2024-03-05] MEDS: COLLAGENASE OINT 30 GM TUBE 1 APPLIC TOPICAL (18:08)
[2024-03-06] VITALS (15 sets, daily range): BP systolic 96–139; BP diastolic 65–69; PULSE 88–114; RESP 20–22; TEMP 37.1–37.2; O2SAT 96–100
[2024-03-06] MEDS: ACETYLCYSTEINE 20% INHAL SOLN 800 MG/4 ML VIAL 200 MG INHALATION ×2 (03:15→08:14)
[2024-03-06] MEDS: IPRATROPIUM 0.5 MG/ALBUTEROL SULFATE 2.5 MG AMPUL.NEB 3 ML INHALATION ×2 (03:15→08:14)
[2024-03-06] MEDS: DOCUSATE SODIUM LIQ 100 MG/10 ML UDC FEED TUBE (09:19)
[2024-03-06] MEDS: ASPIRIN 81 MG CHEWABLE TABLET FEED TUBE (09:19)
[2024-03-06 09:20] LABS: Basophils Percent Auto 0.5 % (0.2-1.2); Eosinophils Absolute Auto 0.2 K/mm3 (0-0.3); Eosinophils Percent Auto 3.8 % (0-4.4); Hematocrit 36.6 % (42.0-52.0); Hemoglobin 11.4 g/dL (14.0-18.0); Immature Granulocyte Absolute 0.01 K/mm3 (0.00-0.031); Immature Granulocyte Percent A 0.2 % (0-0.5); Lymphocytes Absolute Auto 1.16 K/mm3 (0.9-3.2); Lymphocytes Percent Auto 21.1 % (18.3-44.2); Mean Corpuscular HGB Conc 31.1 g/dl (32-36); Mean Corpuscular Hemoglobin 25.7 pg (26-34); Mean Corpuscular Volume 82.6 fl (80-100); Mean Platelet Volume 8.5 fl (7.4-10.4); Monocytes Absolute Auto 0.6 K/mm3 (0.1-0.6); Monocytes Percent Auto 10.2 % (2.6-8.5); Neutrophils Absolute Auto 3.5 K/mm3 (1.3-6.7); Neutrophils Percent Auto 64.2 % (45.5-73.1); Platelet Count Result 419 k/mm3 (150-375); Red Blood Count 4.43 M/mm3 (4.6-6.20); Red Cell Distribution Width 15.5 % (11.5-14.5); White Blood Count 5.5 K/mm3 (4.5-10.0)
[2024-03-06] MEDS: SENNOSIDES 8.6 MG TABLET FEED TUBE (09:20)
[2024-03-06] MEDS: ENOXAPARIN 40 MG/0.4 ML SYRINGE SUB-Q (09:21)
[2024-03-06] MEDS: COLLAGENASE OINT 30 GM TUBE 1 APPLIC TOPICAL (09:22)
[2024-03-06] MEDS: FERROUS SULFATE LIQUID 325 MG/7.4 ML ELIXIR PO (09:25)
[2024-03-06 09:37] LABS: Anion Gap 7 mmol/L (4-12); Blood Urea Nitrogen 15 mg/dL (9-20); Calcium 9.3 mg/dL (8.4-10.2); Carbon Dioxide 30 mmol/L (22-30); Chloride 100 mmol/L (98-107); Estimated CRCL calculation 127 ml/min; Estimated Glomerular Filt Rate > 60; Glucose 110 mg/dL (65-110); Potassium 4.5 mmol/L (3.4-5.0); Sodium 137 mmol/L (137-145)
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
--- NOTE | 2024-03-06 11:57 | PCNFU ---
Nutrition Follow-Up Complete: Inability to meet estimated nutrition needs PO related to chronic paraplegia as evidenced by need for PEG tube feeding Meet estimated nutrition needs - Goal being met. Nutrition needs being met 100% with tube feeding at 35 kcal/kg and 1.4 g protein/kg. Goal: Pt current nutrition is Jevity 1.5 @ 70 ml/h with flushes 180 ml q 4 hours. Nutrition recommendation: Return to home regimen after discharge: Isosource 1.5 or equivalent - bolus 240 ml (8 oz container) x7 containers per day. Flush 180 ml after each feeding. Last recorded weight is 74.5 kg. Bowel Motility: Last BM +1 Labs Reviewed: Hg 11.4, Hct 36.6 Meds Noted: Colace, senna, miralax Skin: Pressure injuries: Unstageable R heel, Stage III R ankle. Protein intake is appropriate for wounds Additional Notes: Pt has been tolerating continuous feeding well during discharge, Jevity 1.5 @ 70 ml/h. Okay to return to home bolus regimen at discharge. If signs of intolerance develop after discharge, pt will likely need a continuous feeding at home. Defer to primary MD for tube feeding changes after discharge. Monitoring tube feeding orders, tolerance, labs, weights, plan of care Follow up Wednesday and Wednesday per policy
== END 2024-03-06 14:17 | disposition home health service (06) | DRG 393 ==
LOC: ANHED 13:43 → ANH2MED 17:46 → ANHICU 02-27 00:49 → ANH2MED 02-28 16:37 → ANH3MEDSUR 02-29 12:01 → ANHIMU 03-04 01:44
PROVIDERS: Internal Medicine; Internal Medicine Gastroenterology; Admitting Provider General Practice; Emergency Provider Emergency Medicine; PCP Internal Medicine Infectious Disease; Visit Provider Hospitalist
PROC: 0DH63UZ Insertion of Feeding Device into Stomach, Percutaneous Approach (ICD-10-PCS; CPT 43246; principal; 2024-02-28 12:30)
DX: K94.23 Gastrostomy malfunction (principal); J69.0 Pneumonitis due to inhalation of food and vomit; G82.20 Paraplegia, unspecified; J95.02 Infection of tracheostomy stoma; L97.419 Non-pressure chronic ulcer of right heel and midfoot with unspecified severity; G47.33 Obstructive sleep apnea (adult) (pediatric); I10 Essential (primary) hypertension; K59.00 Constipation, unspecified; Z79.82 Long term (current) use of aspirin; Z86.73 Personal history of transient ischemic attack (TIA), and cerebral infarction without residual deficits; Z87.828 Personal history of other (healed) physical injury and trauma; Z87.891 Personal history of nicotine dependence
CPT/HCPCS: 36415; 43246; 70490; 71045; 71250; 73650; 80048; 80053; 82948; 83735; 84100; 84145; 85025; 85027; 85652; 86140; 87040; 87070; 87205; 87641; 94640; 94669; 96374; 96376; 99285; A9270; C1751; G0378; J1650; J2003; J2060; J2185; J2543; J2704; J7120

== ENCOUNTER 2024-05-15 20:43 | Inpatient (IN) | payer MEDICARE, MEDICAID, SELFPAY ==
--- NOTE | ~2024-05-15 | XR_ITS ---
EXAMINATION: XR chest 1V portable DATE: 05/19/2024 15:19 INDICATION: Follow-up pneumonia TECHNIQUE: frontal view of the chest was obtained. COMPARISON: Chest radiograph dated 05/15/24 FINDINGS: Unchanged elevation the right hemidiaphragm. There are persistent airspace opacities in the right low er lung zone. Lenticular pleural-based opacity at the lateral left lower lung zone most likely artifa ct of superimposed soft tissue shadows from the medial left upper arm with differential including les s likely small loculated left pleural effusion. No pulmonary edema or pneumothorax. The cardiomediast inal silhouette is normal. IMPRESSION: 1. Chronic elevation the right hemidiaphragm with persistent airspace opacities in the right lower alli ng zone which could represent atelectasis or pneumonia. 2. New retrocardiac airspace opacity medial left lower lung zone which similarly could represent atel ectasis or pneumonia. 2. Lenticular opacity at the lateral left lower lung zone which appears new since the prior study mos t likely artifactual superimposition of soft tissue shadow from the patient's arm with differential i ncluding less likely small loculated left pleural effusion. Reviewed, dictated and finalized at location B. IOGRAPHER IMPRESSION: 1. Chronic elevation the right hemidiaphragm with persistent airspace opacities in the right lower lung zone which could represent atelectasis or pneumonia. 2. New retrocardiac airspace opacity medial left lower lung zone which similarl y could represent atelectasis or pneumonia. 2. Lenticular opacity at the lateral left lower lung zone which appears new sin ce the prior study most likely artifactual superimposition of soft tissue shado w from the patient's arm with differential including less likely small loculate d left pleural effusion.
--- NOTE | ~2024-05-15 | XR_ITS ---
XR chest 1V Ordering provider: Alexis Cain MD History: 38 years Male with . SOB . Comparison: March 03, 2024 FINDINGS: MEDIASTINUM: The cardiac silhouette is not enlarged. LUNGS: No effusions or pneumothorax. Opacification in the right lung base suggestive of pneumonia. OTHER: No free air under the diaphragm. IMPRESSION: Right basal pneumonia. Reviewed, dictated and finalized at location A. TINTER IMPRESSION: Right basal pneumonia.
[2024-05-15 20:21] VITALS: PULSE 84; RESP 15; TEMP 37.2; O2SAT 94
[2024-05-15 20:33] VITALS: BP 88/64; PULSE 89; RESP 18; O2SAT 97
--- NOTE | 2024-05-15 20:34 | ECG_ITS ---
Test Date: 2024-05-15 20:36:40 Measurements Intervals [place] Rate: 79 P: 74 PA: 189 QRS: 67 QRSD: 66 T: 60 QT: 340 QTc: 390 Interpretive Statements SINUS RHYTHM No previous ECG available for comparison Electronically Signed On 05-16-2024 22:53:07 VIRTUAL CUSTOMER ASSISTANT by Herminia Dailey M.D.
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
[2024-05-15 21:01] LABS: Basophils Percent Auto 0.5 % (0.2-1.2); Eosinophils Absolute Auto 0.2 K/mm3 (0-0.3); Hematocrit 36.4 % (42.0-52.0); Hemoglobin 11.6 g/dL (14.0-18.0); Immature Granulocyte Absolute 0.01 K/mm3 (0.00-0.031); Immature Granulocyte Percent A 0.2 % (0-0.5); Lymphocytes Percent Auto 28.6 % (18.3-44.2); Mean Corpuscular HGB Conc 31.9 g/dl (32-36); Mean Corpuscular Hemoglobin 26.1 pg (26-34); Mean Corpuscular Volume 81.8 fl (80-100); Mean Platelet Volume 9.4 fl (7.4-10.4); Monocytes Absolute Auto 0.6 K/mm3 (0.1-0.6); Monocytes Percent Auto 14.5 % (2.6-8.5); Neutrophils Absolute Auto 2.2 K/mm3 (1.3-6.7); Neutrophils Percent Auto 51.2 % (45.5-73.1); Platelet Count Result 296 k/mm3 (150-375); Red Blood Count 4.45 M/mm3 (4.6-6.20); Red Cell Distribution Width 14.1 % (11.5-14.5); White Blood Count 4.2 K/mm3 (4.5-10.0)
[2024-05-15 21:02] VITALS: O2SAT 97
[2024-05-15 21:26] LABS: Lactic Acid Reflex 0.6 mmol/L (0.7-2.0)
[2024-05-15 21:27] LABS: Alanine Aminotransferase 12 U/L (6-50); Albumin Level 3.5 g/dL (3.5-5.1); Alkaline Phosphatase 101 U/L (38-126); Anion Gap 4 mmol/L (4-12); Aspartate Amino Transferase 16 U/L (17-59); Bilirubin,Total 0.3 mg/dL (0.2-1.3); Blood Urea Nitrogen 19 mg/dL (9-20); Calcium 9.1 mg/dL (8.4-10.2); Carbon Dioxide 25 mmol/L (22-30); Chloride 105 mmol/L (98-107); Estimated CRCL calculation 127 ml/min; Estimated Glomerular Filt Rate > 60; Glucose 77 mg/dL (65-110); Potassium 4.6 mmol/L (3.4-5.0); Sodium 134 mmol/L (137-145)
[2024-05-15] MEDS: ACETAMINOPHEN 500 MG TABLET 1000 MG FEED TUBE (21:27)
[2024-05-15 21:29] LABS: CRP 1.9 mg/dL (<1.0)
[2024-05-15 21:39] LABS: Influenza A QL RT-PCR Negative (Negative); Influenza B QL RT-PCR Negative (Negative); RSV RNA, RT-PCR Negative (Negative); SARS-CoV-2 RNA PCR Negative (Negative)
[2024-05-15] MEDS: MEROPENEM 1 GM/NS 100 ML 1 GM/100 ML BAG IVPB (22:35)
[2024-05-15 22:44] VITALS: BP 110/88; PULSE 90; RESP 16; O2SAT 92
[2024-05-15 22:57] VITALS: BP 108/84; PULSE 93; RESP 15; O2SAT 93
[2024-05-15 23:28] VITALS: BP 112/94; PULSE 96; RESP 19; O2SAT 97
[2024-05-16] VITALS (9 sets, daily range): BP systolic 84–114; BP diastolic 53–86; PULSE 72–103; RESP 19–22; TEMP 36.1–36.7; O2SAT 93–99; BMI 21.3
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
[2024-05-16] MEDS: VANCOMYCIN 1,250 MG/NS 250 ML 1,250 MG/250 ML BAG 166.67 MG IVPB (01:24)
[2024-05-16 02:28] LABS: MRSA (PCR) NOT DETECTED (NOT DETECTE)
--- NOTE | 2024-05-16 02:42 | PC.NURSE ---
Hospitalist contacted about urine specimen collections; ordered to place external catheter on patient.
[2024-05-16] MEDS: VANCOMYCIN 1,000 MG/NS 250 ML 1,000 MG/250 ML BAG 250 MG IVPB (03:22)
--- NOTE | 2024-05-16 05:10 | ADMGEN ---
This patient, Jaime Tyler Jr., was admitted to 3 [facility] Surg Room 307-01. Patient/family oriented to hospital policies and general routines including ID bracelet, bed and alarms, visiting hours, pain management, procedures, bathroom and other care routines, personal items, smoking policy, room service/diet, and visiting hours. Information on how to activate the Rapid Response Team has been discussed. Patient/Family are encouraged to report perceived risks to care and to ask questions if they do not understand what they are told or what they should do.
[2024-05-16] MEDS: MEROPENEM 1 GM/NS 100 ML 1 GM/100 ML BAG IVPB (06:54)
[2024-05-16 08:12] LABS: Basophils Percent Auto 0.7 % (0.2-1.2); Eosinophils Absolute Auto 0.1 K/mm3 (0-0.3); Eosinophils Percent Auto 3.6 % (0-4.4); Hematocrit 36.1 % (42.0-52.0); Hemoglobin 11.3 g/dL (14.0-18.0); Immature Granulocyte Absolute 0.01 K/mm3 (0.00-0.031); Immature Granulocyte Percent A 0.3 % (0-0.5); Lymphocytes Absolute Auto 0.81 K/mm3 (0.9-3.2); Lymphocytes Percent Auto 26.7 % (18.3-44.2); Mean Corpuscular HGB Conc 31.3 g/dl (32-36); Mean Corpuscular Hemoglobin 25.9 pg (26-34); Mean Corpuscular Volume 82.6 fl (80-100); Mean Platelet Volume 9.6 fl (7.4-10.4); Monocytes Absolute Auto 0.4 K/mm3 (0.1-0.6); Monocytes Percent Auto 14.5 % (2.6-8.5); Neutrophils Absolute Auto 1.6 K/mm3 (1.3-6.7); Neutrophils Percent Auto 54.2 % (45.5-73.1); Platelet Count Result 283 k/mm3 (150-375); Red Blood Count 4.37 M/mm3 (4.6-6.20); Red Cell Distribution Width 14.3 % (11.5-14.5)
[2024-05-16 08:31] LABS: Anion Gap 3 mmol/L (4-12); Blood Urea Nitrogen 16 mg/dL (9-20); Carbon Dioxide 24 mmol/L (22-30); Chloride 108 mmol/L (98-107); Estimated CRCL calculation 135 ml/min; Estimated Glomerular Filt Rate > 60; Glucose 75 mg/dL (65-110); Magnesium 1.9 mg/dL (1.6-2.3); Potassium 4.7 mmol/L (3.4-5.0); Sodium 135 mmol/L (137-145)
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
[2024-05-16] MEDS: ENOXAPARIN 40 MG/0.4 ML SYRINGE SUB-Q (10:42)
[2024-05-16] MEDS: levoFLOXacin 750 MG TABLET PO (10:42)
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
[2024-05-17 00:35] VITALS: BP 93/72; PULSE 102; RESP 16; TEMP 37.2; O2SAT 96
[2024-05-17 05:30] VITALS: BP 94/72; PULSE 115; RESP 24; TEMP 37.3; O2SAT 98
[2024-05-17 08:00] VITALS: BP 98/64; PULSE 102; RESP 18; TEMP 36.6; O2SAT 100
[2024-05-17 08:29] LABS: Glucose Point of Care 107 mg/dl (65-105)
[2024-05-17] MEDS: levoFLOXacin 750 MG TABLET PO (08:31)
[2024-05-17] MEDS: ENOXAPARIN 40 MG/0.4 ML SYRINGE SUB-Q (08:40)
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
[2024-05-17 12:00] VITALS: BP 101/72; PULSE 104; RESP 18; TEMP 36.8; O2SAT 95
[2024-05-17] MEDS: GLYCOPYRROLATE 1 MG TABLET FEED TUBE ×2 (13:41→22:40)
[2024-05-17] MEDS: SCOPOLAMINE 1 MG PATCH 1 PATCH TRANSDERM (13:41)
[2024-05-17] MEDS: FERROUS SULFATE LIQUID 325 MG/7.4 ML ELIXIR FEED TUBE (17:36)
[2024-05-17 21:44] VITALS: BP 90/63; PULSE 113; RESP 18; TEMP 37.1; O2SAT 98
[2024-05-17 22:39] VITALS: PULSE 113
[2024-05-18 05:24] VITALS: BP 108/82; PULSE 125; RESP 18; TEMP 37.3; O2SAT 98
[2024-05-18] MEDS: GLYCOPYRROLATE 1 MG TABLET FEED TUBE ×3 (06:10→21:05)
[2024-05-18] MEDS: levoFLOXacin 750 MG TABLET FEED TUBE (06:10)
[2024-05-18 06:42] LABS: Hematocrit 39.7 % (42.0-52.0); Hemoglobin 12.6 g/dL (14.0-18.0); Mean Corpuscular HGB Conc 31.7 g/dl (32-36); Mean Corpuscular Hemoglobin 25.9 pg (26-34); Mean Corpuscular Volume 81.5 fl (80-100); Mean Platelet Volume 9.6 fl (7.4-10.4); Platelet Count Result 313 k/mm3 (150-375); Red Blood Count 4.87 M/mm3 (4.6-6.20); White Blood Count 4.1 K/mm3 (4.5-10.0)
[2024-05-18 06:52] LABS: Anion Gap 2 mmol/L (4-12); Blood Urea Nitrogen 12 mg/dL (9-20); Calcium 9.3 mg/dL (8.4-10.2); Carbon Dioxide 27 mmol/L (22-30); Chloride 106 mmol/L (98-107); Estimated CRCL calculation 112 ml/min; Estimated Glomerular Filt Rate > 60; Glucose 87 mg/dL (65-110); Potassium 4.4 mmol/L (3.4-5.0); Sodium 135 mmol/L (137-145)
[2024-05-18 09:40] VITALS: BP 128/92
[2024-05-18] MEDS: DOCUSATE SODIUM LIQ 100 MG/10 ML UDC FEED TUBE (10:13)
[2024-05-18] MEDS: ASPIRIN 81 MG CHEWABLE TABLET FEED TUBE (10:13)
[2024-05-18 10:14] VITALS: PULSE 102
[2024-05-18] MEDS: METOPROLOL TARTRATE 12.5 MG TABLET FEED TUBE ×2 (10:14→21:05)
[2024-05-18] MEDS: ENOXAPARIN 40 MG/0.4 ML SYRINGE SUB-Q (10:14)
[2024-05-18] MEDS: FERROUS SULFATE LIQUID 325 MG/7.4 ML ELIXIR FEED TUBE ×2 (10:14→16:45)
[2024-05-18 14:00] VITALS: BP 142/96; PULSE 671; RESP 182; TEMP 36.1; O2SAT 97
[2024-05-18] MEDS: SENNOSIDES 8.8 MG/5 ML SYRUP FEED TUBE (14:35)
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
[2024-05-18 21:05] VITALS: PULSE 116
[2024-05-18] MEDS: metroNIDAZOLE 500 MG TABLET FEED TUBE (21:05)
[2024-05-18 21:30] VITALS: BP 124/62; PULSE 116; RESP 24; TEMP 36.8; O2SAT 99
[2024-05-19] MEDS: metroNIDAZOLE 500 MG TABLET FEED TUBE (05:09)
[2024-05-19] MEDS: GLYCOPYRROLATE 1 MG TABLET FEED TUBE ×3 (05:09→20:18)
[2024-05-19] MEDS: levoFLOXacin 750 MG TABLET FEED TUBE (05:09)
[2024-05-19 05:48] VITALS: BP 132/74; PULSE 127; RESP 24; TEMP 36.9; O2SAT 94
[2024-05-19 08:48] VITALS: PULSE 96
[2024-05-19] MEDS: ASPIRIN 81 MG CHEWABLE TABLET FEED TUBE (08:48)
[2024-05-19] MEDS: FERROUS SULFATE LIQUID 325 MG/7.4 ML ELIXIR FEED TUBE ×2 (08:48→15:38)
[2024-05-19] MEDS: METOPROLOL TARTRATE 12.5 MG TABLET FEED TUBE ×2 (08:48→20:18)
[2024-05-19] MEDS: DOCUSATE SODIUM LIQ 100 MG/10 ML UDC FEED TUBE (08:48)
[2024-05-19] MEDS: ENOXAPARIN 40 MG/0.4 ML SYRINGE SUB-Q (08:48)
[2024-05-19] MEDS: SENNOSIDES 8.8 MG/5 ML SYRUP FEED TUBE (08:49)
--- NOTE | 2024-05-19 13:13 | PCNFU ---
Nutrition Follow-Up Complete: Inability to meet protein energy needs PO related to chronic paraplegia as evidenced by need for full pEG tube feedings Meet estimated protein energy needs Goal: Pt current nutrition is Jevity 1,5 @ 70 ml/h with 180 ml flushes q 4 hours. Nutrition recommendation: Decrease tube feeding rate to Jevity 1.5 @ 60 ml/h and add Alexis BID to flushes for additional 90 kcal and 2.5 g protein with arginine and glutamine for wounds Last recorded weight is 64.5 kg. Bowel Motility: +1 BM 05/18/24 Labs Reviewed: No new labs. Na 135 yesterday 05/18/24 Meds Noted: Skin: Stage 2 R heel Additional Notes: Discussed with provider dropping rate of TF to 60 ml/h which is adequate for needs, because of low Na. Alexis BID for wounds. Monitoring tube feeding tolerance, weights, labs, meds, plan of care Follow up Wednesday/wednesday
[2024-05-19 14:00] VITALS: BP 121/83; PULSE 130; RESP 30; TEMP 36.6; O2SAT 92
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
[2024-05-19] MEDS: PIPERACILLN/TAZ 3.375GM/NS50ML 3.375 GM/50 ML BAG IVPB ×3 (15:38→23:09)
[2024-05-19 20:00] VITALS: PULSE 129; RESP 18; O2SAT 98
[2024-05-19 21:07] VITALS: BP 128/86; PULSE 129; RESP 18; TEMP 36.7; O2SAT 98
[2024-05-20] MEDS: PIPERACILLN/TAZ 3.375GM/NS50ML 3.375 GM/50 ML BAG IVPB ×3 (05:22→18:08)
[2024-05-20] MEDS: GLYCOPYRROLATE 1 MG TABLET FEED TUBE ×3 (05:23→21:55)
[2024-05-20 05:48] VITALS: BP 121/84; PULSE 124; RESP 18; TEMP 36.7; O2SAT 98
[2024-05-20 07:44] LABS: Glucose Point of Care 137 mg/dl (65-105)
[2024-05-20 08:00] VITALS: PULSE 90; RESP 18; O2SAT 98
[2024-05-20 09:34] VITALS: PULSE 90
[2024-05-20] MEDS: ASPIRIN 81 MG CHEWABLE TABLET FEED TUBE (09:34)
[2024-05-20] MEDS: SENNOSIDES 8.8 MG/5 ML SYRUP FEED TUBE (09:34)
[2024-05-20] MEDS: METOPROLOL TARTRATE 12.5 MG TABLET FEED TUBE ×2 (09:34→21:55)
[2024-05-20] MEDS: DOCUSATE SODIUM LIQ 100 MG/10 ML UDC FEED TUBE (09:34)
[2024-05-20] MEDS: FERROUS SULFATE LIQUID 325 MG/7.4 ML ELIXIR FEED TUBE ×2 (09:34→17:53)
[2024-05-20] MEDS: ENOXAPARIN 40 MG/0.4 ML SYRINGE SUB-Q (09:34)
[2024-05-20] MEDS: SCOPOLAMINE 1 MG PATCH 1 PATCH TRANSDERM (09:35)
[2024-05-20 14:00] VITALS: BP 123/85; PULSE 97; RESP 19; TEMP 36.8; O2SAT 99
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
[2024-05-20 17:24] LABS: Mycoplasma IgM Antibody Titer 710 U/mL
--- NOTE | 2024-05-20 19:24 | PC.NURSE ---
Feed was comleted and changed at 1800 746ml Flush 1014ml feed 180ml flushes 60ml rate
[2024-05-20 21:09] VITALS: BP 118/84; PULSE 123; RESP 22; TEMP 36.2; O2SAT 98
[2024-05-20 21:55] VITALS: PULSE 123
[2024-05-21] MEDS: PIPERACILLN/TAZ 3.375GM/NS50ML 3.375 GM/50 ML BAG IVPB ×2 (00:14→05:13)
[2024-05-21] MEDS: GLYCOPYRROLATE 1 MG TABLET FEED TUBE ×3 (05:13→21:02)
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
[2024-05-21] MEDS: SENNOSIDES 8.8 MG/5 ML SYRUP FEED TUBE (09:11)
[2024-05-21] MEDS: MEROPENEM 1 GM/NS 100 ML 1 GM/100 ML BAG IVPB ×2 (09:11→16:24)
[2024-05-21] MEDS: DOCUSATE SODIUM LIQ 100 MG/10 ML UDC FEED TUBE (09:11)
[2024-05-21] MEDS: ENOXAPARIN 40 MG/0.4 ML SYRINGE SUB-Q (09:11)
[2024-05-21] MEDS: METOPROLOL TARTRATE 25 MG TABLET FEED TUBE ×2 (09:11→21:02)
[2024-05-21] MEDS: ASPIRIN 81 MG CHEWABLE TABLET FEED TUBE (09:11)
[2024-05-21] MEDS: FERROUS SULFATE LIQUID 325 MG/7.4 ML ELIXIR FEED TUBE ×2 (09:14→16:24)
[2024-05-21 09:32] LABS: Alanine Aminotransferase 15 U/L (6-50); Albumin Level 3.9 g/dL (3.5-5.1); Alkaline Phosphatase 90 U/L (38-126); Anion Gap 4 mmol/L (4-12); Aspartate Amino Transferase 20 U/L (17-59); Bilirubin,Total 0.5 mg/dL (0.2-1.3); Blood Urea Nitrogen 20 mg/dL (9-20); Calcium 9.3 mg/dL (8.4-10.2); Carbon Dioxide 27 mmol/L (22-30); Chloride 102 mmol/L (98-107); Estimated CRCL calculation 114 ml/min; Estimated Glomerular Filt Rate > 60; Glucose 118 mg/dL (65-110); Magnesium 1.9 mg/dL (1.6-2.3); Potassium 4.5 mmol/L (3.4-5.0); Sodium 133 mmol/L (137-145)
[2024-05-21 09:39] LABS: Hematocrit 40.9 % (42.0-52.0); Mean Corpuscular HGB Conc 31.8 g/dl (32-36); Mean Corpuscular Hemoglobin 25.4 pg (26-34); Mean Platelet Volume 9.6 fl (7.4-10.4); Platelet Count Result 319 k/mm3 (150-375); Red Blood Count 5.11 M/mm3 (4.6-6.20); Red Cell Distribution Width 13.9 % (11.5-14.5)
[2024-05-21 13:43] VITALS: PULSE 108; RESP 20; O2SAT 97
[2024-05-21] MEDS: LEVALBUTEROL NEB 1.25 MG/3 ML 0.63 MG INHALATION ×2 (13:43→22:16)
[2024-05-21 13:51] VITALS: PULSE 112; RESP 24
[2024-05-21 14:00] VITALS: BP 115/74; PULSE 118; RESP 18; TEMP 36.3; O2SAT 100
[2024-05-21] MEDS: ARTIFICIAL TEARS OPHTH SOLN 15 ML BOTTLE 1 DROP EACH EYE (16:24)
[2024-05-21 22:00] VITALS: BP 107/79; PULSE 122; RESP 22; TEMP 36.9; O2SAT 97
[2024-05-21 22:10] VITALS: PULSE 108; O2SAT 96
[2024-05-21 22:16] VITALS: PULSE 108; RESP 20
[2024-05-21 23:53] LABS: Glucose Point of Care 109 mg/dl (65-105)
[2024-05-22] VITALS (8 sets, daily range): BP systolic 110–113; BP diastolic 73–78; PULSE 104–126; RESP 20–24; TEMP 36.9–37.2; O2SAT 94–97
[2024-05-22] MEDS: MEROPENEM 1 GM/NS 100 ML 1 GM/100 ML BAG IVPB ×3 (00:29→16:45)
[2024-05-22] MEDS: LEVALBUTEROL NEB 1.25 MG/3 ML 0.63 MG INHALATION ×3 (02:50→13:34)
[2024-05-22] MEDS: GLYCOPYRROLATE 1 MG TABLET FEED TUBE ×2 (05:39→13:09)
[2024-05-22] MEDS: ASPIRIN 81 MG CHEWABLE TABLET FEED TUBE (09:21)
[2024-05-22] MEDS: DOCUSATE SODIUM LIQ 100 MG/10 ML UDC FEED TUBE (09:21)
[2024-05-22] MEDS: METOPROLOL TARTRATE 25 MG TABLET FEED TUBE (09:21)
[2024-05-22] MEDS: ENOXAPARIN 40 MG/0.4 ML SYRINGE SUB-Q (09:21)
[2024-05-22] MEDS: SENNOSIDES 8.8 MG/5 ML SYRUP FEED TUBE (09:21)
[2024-05-22] MEDS: FERROUS SULFATE LIQUID 325 MG/7.4 ML ELIXIR FEED TUBE ×2 (09:21→16:45)
[2024-05-22 10:21] LABS: Hematocrit 36.5 % (42.0-52.0); Hemoglobin 11.8 g/dL (14.0-18.0); Mean Corpuscular HGB Conc 32.3 g/dl (32-36); Mean Corpuscular Hemoglobin 25.8 pg (26-34); Mean Corpuscular Volume 79.9 fl (80-100); Mean Platelet Volume 9.3 fl (7.4-10.4); Platelet Count Result 302 k/mm3 (150-375); Red Blood Count 4.57 M/mm3 (4.6-6.20); White Blood Count 4.1 K/mm3 (4.5-10.0)
[2024-05-22 10:30] LABS: Alanine Aminotransferase 17 U/L (6-50); Albumin Level 3.6 g/dL (3.5-5.1); Alkaline Phosphatase 83 U/L (38-126); Anion Gap 2 mmol/L (4-12); Aspartate Amino Transferase 23 U/L (17-59); Bilirubin,Total 0.4 mg/dL (0.2-1.3); Blood Urea Nitrogen 18 mg/dL (9-20); Calcium 9.1 mg/dL (8.4-10.2); Carbon Dioxide 28 mmol/L (22-30); Chloride 103 mmol/L (98-107); Estimated CRCL calculation 131 ml/min; Estimated Glomerular Filt Rate > 60; Glucose 104 mg/dL (65-110); Potassium 4.6 mmol/L (3.4-5.0); Sodium 133 mmol/L (137-145)
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
[2024-05-22 13:05] LABS: Glucose Point of Care 122 mg/dl (65-105)
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
--- OUTSIDE RECORDS SUMMARY | 2024-05-23 03:17 | XMS_ITS | Continuity of Care Document ---
Author Organization [facility], [facility] Address [address] [place] [address] Assessment No assessment recorded. Plan of Treatment Reminders Order Date Submit Date Provider Last Modified By Organization Details Last Modified Time Details Appointments ANY 30 025 11:00AM Christine Ibrahim MD Not available Not available Not available Lab None record ed. Referral None record ed. Procedures None record ed. Surgeries None record ed. Imaging None record ed. Medication Orders None record ed. Patient TargetsNo targets recorded. Patient InstructionsNo instructions recorded. Reason for Referral None Reported. Results Created Date Observation Date Name Description Value Unit Range Abnormal Flag Note LastModifiedBy Organization Detail LastModifiedTime 05/15/20 24 05/15/2024 XR, chest No observ ation record ed. [address], [address], 05/21/2024 12:03:54 05/19/19 25 05/19/2024 XR, chest No observ ation record ed. [address], [address], 05/21/2024 20:04:04 Result Notes None recorded. Problems Name Problem SNOMED Code Status Onset Date Resolution Date Notes Provider Name and Address Organization Details Recorded Time Essential hypertension 01564199 Active Solomon Telles MD Attn: Alejandra hoffman,[address] [place], [address], [facility] 17:35:07 Obesity 245346859 Active Solomon Telles MD Attn: Alejandra hoffman,[address] [facility], [place], [address], [place] [facility] 5 17:35:07 Tobacco user 041317801 Active Solomon Telles MD Attn: Alejandra hoffman,[address] [facility], [place], [address], [place] [facility] 5 17:35:07 Sexually transmitted infectious disease 6852079 Active Solomon Telles MD Attn: Alejandra hoffman,[address] [facility], [place], [address], [place] [facility] 5 17:35:07 Discharge from penis 9686434 Active Cuca Fletcher [place] null, [place] [facility] 5 17:45:32 Infection caused by Pseudomonas aeruginosa 45799474 Active Luciano Samano LPN [place], [place] [facility] 4 15:11:08 Hematoma of foot Active Luciano Samano LPN [place] [facility] 4 15:11:08 Infective pneumonia 692008256 Active Luciano Sam[place] LPN [place] [facility] 4 15:11:08 Chronic respiratory failure 56955018 Active Luciano Sam[place] LPN [place] [facility] 4 15:11:08 Paronychia of toe of right foot due to ingrown toenail 669577390 Active Luciano Samano LPN [place] [facility] 4 15:11:08 Notes: :STD panel Discharg e Checked for Diabetes Problem Notes None recorded. Procedures Surgical History Date Name Laterality Status Provider Name and Address Organization Details Recorded Time 1 operation on stomach completed Bruna Quintanilla [place] [facility] 06/24/2022 11:24:35 Imaging Results None recorded. Procedure Notes None recorded. Medical Equipment None Reported. Allergies Allergen ID Allergen Name Allergen Category Reaction Reaction Severity Criticality Documentation Date Start Date Code Code System Note Provider Name and Address Organization Details Recorded Time 649220 No known allergy (situatio n) Not available Not available Not available Not available 02/01/2024 [id number] [id number] SNSTEPHEN Samano LPN null, [place] - [facility] 4 15:10:51 No known drug allergies Medications Name [...] t Available Vitals Date Recorded Body height Heart rate Body temperature Systolic blood pressure Diastolic blood pressure Provider Name and Address Organization Details Last Updated DateTime 04/24/2024 170.18 cm 81 /min 97.5 [degF] 103 mm[Hg] 78 mm[Hg] Alix Lawton [place] - [facility] 11:14:46 Social History Question Answer Notes LastModified by Organizat ion Details LastModified Time Tobacco Smoking Status Former Smoker Bruna Quintanilla MA null, [place] [facility] 06/24/2022 11:23:58 Do You Have [...] Anxious, Or Unable To Sleep At Night)? 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 [place] [facility] 02/01/2024 15:08:28 OPV 05/03/1986 completed Luciano Samano, [employer] REFINISH[place] [facility] 02/01/2024 15:08:28 Hep B, adolescent or pediatric 10/09/1998 completed Tinya Selwyn, CAR REFINISHER [place] [facility] 02/01/2024 15:08:28 Hep B, adolescent or pediatric 05/01/1998 completed Luciano Samano, CAR REFINISHER [place] [facility] 02/01/2024 15:08:28 Hep B, adolescent/high risk infant 11/30/1997 completed Luciano Samano [employer] RE[employer]ER [place] [facility] 02/01/2024 15:08:28 Tdap 01/06/2023 completed Autumn Odell MD Attn: Accounting,[address] [place], [address], [place] [facility] 01/06/2023 17:39:59 Past Encounters Encounter ID Performer Location Encounter Start Date Encounter Closed Date Diagnosis/Indication Diagnosis SNOMED-CT Code Diagnosis ICD10 Code Diagnosis Note [id number] Seb Freeman MD [facility] [address] [place] [address] 04/24/2024 10:58:46 04/24/2024 11:56:31 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 no therapy at this time follow back if he has further difficulti es Health Concerns Section Related Observation LastModified by Organization Detai ls LastModified Time None Recorded Concern Status LastModified by Organization Details LastModified Time None Recorded Payers Encounter Date Sequence Insurance Name Policy Number Policy Almeida Covered Member ID Almeida Member ID Guarantor Name 04/24/2024 1 [place] Jaime Tyler Jr [id number] Jaime Tyler 04/24/2024 2 [place] [employer] Jaime Tyler [id number] Jaime Tyler Notes Date Note Type Note Provider Name and Address Organization Details Recorded Time 04/24/2024 text/html patient here for non closure [...] does have mild drainage. Seb Freeman MD [address] [facility], [place], [address], [facility] 04/24/2024 11:21:14
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
--- OUTSIDE RECORDS SUMMARY | 2024-05-23 03:18 | XMS_ITS | Encounter Summary ---
Author Organization [facility] Address [address] [place] [address] Care Team Providers Care Teacher Of The Handicapped Name Role Phone Pepe Martel MD Primary Care Provider [phone] Encounter Details Date Type Department Care Team (Late st Contact Info) Description 12/17/2021 Lab Requisition [facility] [address] [place] [address] [place] [address] [place] [address] Social History Tobacco Use Types Packs/Day Years Used Date Smoking Tobacco: Smoker, Current Status Unknown Smokeless Tobacco: Never Sex and Gender Information Value Date Recorded Sex Assigned at Not on file Gender Identity Male 02/15/2021 7:04 AM CDT Sexual Orientation Not on file documented as of this encounter Functional Status Functional Status Response Date of Assess ment Is person deaf or have serious hearing difficult y? No 02/15/2021 Is person blind or have serious difficulty seein g? No 02/15/2021 Does person have serious dif ficulty walking/climbing stairs? No 02/15/2021 Does person have difficulty dressing/bathing? No 02/15/2021 Does person have difficulty doing errands alone? No 02/15/2021 Cognitive Status Response Date of Assessm ent Does person have difficulty concentrating/remembering/making decisions? No 02/15/2021 documented as of this encounter Plan of Treatment Not on file documented as of this encounter Procedures Procedure Name Priority Date/Time Associated Diagnosis Comments COMPREHENSIVE METABOLIC PANEL STAT 12/17/2021 3:35 AM CDT documented in this encounter Results * (ABNORMAL) COMPREHENSIVE METABOLIC PANEL (12/17/2021 3:35 AM CDT) Pathologist [facility] Glucose 99 70 - 105 mg/dL 12/17/2021 8:55 AM CDT [facility] Sodium 140 136 - 145 mmol/L 12/17/2021 8:55 AM CDT [facility] Potassium 5.2(H) 3.5 - 5.1 mmol/L 12/17/2021 8:55 AM CDT [facility] Chloride 101 98 - 107 mmol/L 12/17/2021 8:55 AM CDT [facility] CO2 24 23 - 31 mmol/L 12/17/2021 8:55 AM CDT [facility] Calcium 10.0 8.4 - 10.4 mg/dL 12/17/2021 8:55 AM CDT [facility] Anion Gap 15 8 - 18 mmol/L 12/17/2021 8:55 AM CDT [facility] BUN 29(H) 8.9 - 20.6 mg/dL 12/17/2021 8:55 AM CDT [facility] Creatinine 1.01 0.72 - 1.25 mg/dL 12/17/2021 8:55 AM CDT [facility] Alkaline Phosphatase 129 40 - 150 U/L 12/17/2021 8:55 AM CDT [facility] ALT 18 0 - 61 U/L 12/17/2021 8:55 AM CDT [facility] AST 11 5 - 34 U/L 12/17/2021 8:55 AM CDT [facility] Protein Total 7.6 6.4 - 8.3 gm/dL 12/17/2021 8:55 AM CDT [facility] Albumin 3.8 3.5 - 5.2 gm/dL 12/17/2021 8:55 AM CDT [facility] Bilirubin Total 0.2 0.2 - 1.2 mg/dL 12/17/2021 8:55 AM CDT [facility] eGFR by CKD-EPI >90 >=90 mL/min/1.7 3 m2 12/17/2021 8:55 AM CDT [facility] Blood BLOOD SPECIMEN / Unknown Venipuncture / Unknown 12/17/2021 3:35 AM CDT 12/17/2021 8:17 AM CDT Vinicio Quintanilla MD LAB - CHEMISTRY JOSE ENRIQUE VELA [facility] Organization Address City/State/[facility] Co de Phone Number [facility] [address] [place] [address] documented in this encounter Visit Diagnoses Not on filedocumented in this encounter Care Teams Teacher Of The Handicapped Relationship Specialty Start Date End Date Pepe Martel MD [address] [place] [address] PCP - General 08/14/16 documented as of this encounter
--- OUTSIDE RECORDS SUMMARY | 2024-05-23 03:18 | XMS_ITS | Encounter Summary ---
Author Organization [facility] Address [address] [place] [address] Care Team Providers Care Multi Slide Machine Tender Name Role Phone Pepe Martel MD Primary Care Provider [phone] Encounter Details Date Type Department Care Team (Late st Contact Info) Description 2021 Lab Requisition [facility] [address] [place] [address] Alverto Virgen MD [address] [place] [address] [place] [address] Social History Tobacco Use Types Packs/Day Years [...] Associated Diagnosis Comments COMPREHENSIVE METABOLIC PANEL STAT 2021 4:04 AM CDT documented in this encounter Results * (ABNORMAL) COMPREHENSIVE METABOLIC PANEL (2021 4:04 AM CDT) Glucose 96 70 - 105 mg/dL 2021 10:29 AM CDT [facility] Sodium 141 136 - 145 mmol/L 2021 10:29 AM CDT [facility] Potassium 4.8 3.5 - 5.1 mmol/L 2021 10:29 AM CDT [facility] Chloride 104 98 - 107 mmol/L 2021 10:29 AM CDT [facility] CO2 22(L) 23 - 31 mmol/L 2021 10:29 AM CDT [facility] Calcium 9.6 8.4 - 10.4 mg/dL 2021 10:29 AM CDT [facility] Anion Gap 15 8 - 18 mmol/L 2021 10:29 AM CDT [facility] BUN 28(H) 8.9 - 20.6 mg/dL 2021 10:29 AM CDT [facility] Creatinine 1.02 0.72 - 1.25 mg/dL 2021 10:29 AM CDT [facility] Alkaline Phosphatase 134 40 - 150 U/L 2021 10:29 AM CDT [facility] ALT 17 0 - 61 U/L 2021 10:29 AM CDT [facility] AST 12 5 - 34 U/L 2021 10:29 AM CDT [facility] Protein Total 7.7 6.4 - 8.3 gm/dL 2021 10:29 AM CDT [facility] Albumin 3.7 3.5 - 5.2 gm/dL 2021 10:29 AM CDT [facility] Bilirubin Total 0.3 0.2 - 1.2 mg/dL 2021 10:29 AM CDT [facility] eGFR by CKD-EPI >90 >=90 mL/min/1.7 3 m2 2021 10:29 AM CDT [facility] Blood BLOOD SPECIMEN / Unknown Venipuncture / Unknown 2021 4:04 AM CDT 2021 8:49 AM CDT Alverto Virgen MD LAB - CHEMISTRY O RDERABLES [facility] [address] [place], [place] [id number] documented in this encounter Visit Diagnoses Not on filedocumented in this encounter Care Teams Multi Slide Machine Tender Relationship Specialty Start Date End Date Pepe Martel MD [address] [place] [address] [address] [place] [address] PCP - General 08/14/16 documented as of this encounter
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
--- OUTSIDE RECORDS SUMMARY | 2024-05-23 03:18 | XMS_ITS | Encounter Summary ---
Author Organization [facility] Address [address] [place] [address] Care Team Providers Care Rv Detailer Name Role Phone Pepe Martel MD Primary Care Provider [phone] Encounter Details Date Type Department Care Team (Late st Contact Info) Description 12/22/2021 Lab Requisition [facility] [address] [place] [address] Alverto Virgen MD [address] [place] [address] [place] [address] Social History Tobacco Use Types Packs/Day Years [...] Associated Diagnosis Comments COMPREHENSIVE METABOLIC PANEL STAT 12/22/2021 3:00 AM CDT documented in this encounter Results * (ABNORMAL) COMPREHENSIVE METABOLIC PANEL (12/22/2021 3:00 AM CDT) Glucose 83 70 - 105 mg/dL 12/22/2021 11:46 AM CDT [facility] Sodium 141 136 - 145 mmol/L 12/22/2021 11:46 AM CDT [facility] Potassium 5.1 3.5 - 5.1 mmol/L 12/22/2021 11:46 AM CDT [facility] Chloride 103 98 - 107 mmol/L 12/22/2021 11:46 AM CDT [facility] CO2 22(L) 23 - 31 mmol/L 12/22/2021 11:46 AM CDT [facility] Calcium 10.1 8.4 - 10.4 mg/dL 12/22/2021 11:46 AM CDT [facility] Anion Gap 16 8 - 18 mmol/L 12/22/2021 11:46 AM CDT [facility] BUN 31(H) 8.9 - 20.6 mg/dL 12/22/2021 11:46 AM CDT [facility] Creatinine 1.06 0.72 - 1.25 mg/dL 12/22/2021 11:46 AM CDT [facility] Alkaline Phosphatase 129 40 - 150 U/L 12/22/2021 11:46 AM CDT [facility] ALT 16 0 - 61 U/L 12/22/2021 11:46 AM CDT [facility] AST 14 5 - 34 U/L 12/22/2021 11:46 AM CDT [facility] Protein Total 7.7 6.4 - 8.3 gm/dL 12/22/2021 11:46 AM CDT [facility] Albumin 3.7 3.5 - 5.2 gm/dL 12/22/2021 11:46 AM CDT [facility] Bilirubin Total 0.3 0.2 - 1.2 mg/dL 12/22/2021 11:46 AM CDT [facility] eGFR by CKD-EPI >90 >=90 mL/min/1.7 3 m2 12/22/2021 11:46 AM CDT [facility] Blood BLOOD SPECIMEN / Unknown Venipuncture / Unknown 12/22/2021 3:00 AM CDT 12/22/2021 10:37 AM CDT Alverto Virgen MD LAB - CHEMISTRY O RDERABLES Performing Organization Address City/State/[facility] Co de Phone Number [facility] [address] [place], [place] [id number] documented in this encounter Visit Diagnoses Not on filedocumented in this encounter Care Teams Rv Detailer Relationship Specialty Start Date End Date Pepe Martel MD [address] [place] [id number] PCP - General 08/14/16 documented as of this encounter
--- OUTSIDE RECORDS SUMMARY | 2024-05-23 03:18 | XMS_ITS | CONTINUITY OF CARE DOCUMENT ---
Author Name williamwilliam williamwilliam Address Unknown Organization [facility] Address [address] [place] [address] [address] [place] [address] Phone [phone] Care Team Providers Care Loan Servicing Officer Name Role Phone Geovanna Cortes MD Unavailable FRANCIS EVANS MD Unavailable [phone] FRANCIS EVANS MD Unavailable [phone] PROBLEMS Condition Status Date Provider Notes Tobacco abuse active Geovanna Cortes MD Snoring active Geovanna Cortes MD Obesity active Geovanna Cortes MD HYPERTENSION active Geovanna Cortes MD ENCOUNTERS Date Type Provider Location Encounter Diag nosis 1 - 2 In-person encounter Office Visit Geovanna Cortes MD [facility] HYPERTENSIONObesitySnoringTobacco abuse VITAL SIGNS Date Observation Value Provider blood pressure, diastolic 80 mm[Hg] Roman Joseph blood pressure, systolic 150 mm[Hg] Justice Joseph height E&M 67 [in_i] Olga Joseph height in centimeters E&M 170.18 cm Roman Joseph Body Mass Index (Ratio) 51.68 kg/m2 Kiel Cortes MD blood pressure, resting Yes Kiel Cortes MD blood pressure, cuff size regular Cy scotty Mendieta blood pressure, diastolic 102 mm[Hg] Sanchez Mendieta blood pressure, systolic 160 mm[Hg] Norma Mendieta respiratory rate E&M 16 /min Kenzie Mendieta oxygen saturation, oximetry 97 % Kenzie Mendieta pulse rate 79 /min Kenzie adams height E&M 67 [in_i] Kenzie adams weight E&M 330 [lb_av] Kenzie adams ALLERGIES No Known Drug Allergies HISTORY OF MEDICATION USE Medication Status Instructions Dates Provider Indications Com ments AMLODIPINE BESYLATE 10 MG ORAL TABLET active one tab by mouth daily Geovanna Cortes MD HYDROCHLOROTHIAZIDE 25 MG ORAL TABLET active TAke 1 tab daily Kenzie Mendieta LOSARTAN POTASSIUM 50 MG ORAL TABLET active take 1 tab daily Kenzie Anam SOCIAL HISTORY Date Observation Value Provider social history E&M Smoking Histo ry: P atient currently smokes every day. P atient has been counseled to quit. Geovanna Cortes MD social history reviewed E&M revi ewed - no changes required Geovanna Cortes MD smoking/tobacco cess ation, patient education and counseling yes Geovanna Cortes MD number of years as a smoker 15 a Kenzie Anma smoking history, tot al pack/day 1/2 Geovanna Cortes MD cigarette use yes Kenzie sprague smoking status Current every day smoker C sabrina Mendieta FAMILY HISTORY Family Member Condition Father Family History of Di abetes: INSURANCE PROVIDERS Payer name Policy type / Coverage type [employer]un [employer] party ID [id number] PAY [id number] ADVANCE DIRECTIVES Name Date DISCUSSED - NO DECISION MADE TREATMENT PLAN Date Name Performer Cardiology New Patie nt :STRONGLY ENCOURAGED TO STOP SMOKING; SMOKING CESSATION TECHNIQUES DISCUSSED. Geovanna Cortes MD Cardiology New Patie nt :Also has HTN and is obese. Will schedule a sleep study. Geovanna Cortes MD Cardiology New Patient :Weight l oss encouraged. Geovanna Cortes MD Cardiology New Patie nt :He's aware of having elevated BP for the past couple years. He is on Losartan 50mg and HCTZ 25mg daily. Will add Amlodipine 10mg daily. Will obtain an echo and schedule a sleep study. Geovanna Cortes MD Date Name Sleep Study Complete Echo HISTORY OF PROCEDURES Procedure Date Procedure Name Provider Procedure Notes S tatus EKG Geovanna Cortes MD complet ed
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
--- OUTSIDE RECORDS SUMMARY | 2024-05-23 03:18 | XMS_ITS | Encounter Summary ---
Author Organization [facility] Address [address] [place] [address] Care Team Providers Care Research Consultant Name Role Phone Pepe Martel MD Primary Care Provider [phone] Encounter Details Date Type Department Care Team (Late st Contact Info) Description 12/08/2021 Lab Requisition [facility] [address] [place] [address] Alverto Virgen MD [address] [place] [address] [place] [address] Social History Tobacco Use Types Packs/Day Years [...] Procedure Name Priority Date/Time Associated Diagnosis Comments CBC W AUTO DIFFERENTIAL STAT 12/08/2021 3:25 AM CDT COMPREHENSIVE METABOLIC PANEL STAT 12/08/2021 3:25 AM CDT documented in this encounter Results * (ABNORMAL) CBC WITH DIFFERENTIAL (12/08/2021 3:25 AM CDT) WBC 8.7 4.4 - 10.7 x10E9/L 12/08/2021 8:58 AM CDT [facility] WBC Corrected 12/08/2021 8:58 AM CDT [facility] RBC 4.20 3.80 - 5.40 x10E12/L 12/08/2021 8:58 AM CDT [facility] Hemoglobin 11.4(L) 12.0 - 17.6 gm/dL 12/08/2021 8:58 AM CDT [facility] Hematocrit 36.6 35.2 - 51.7 % 12/08/2021 8:58 AM CDT [facility] MCV 87.1 80.7 - 98.3 fl 12/08/2021 8:58 AM CDT [facility] MCH 27.1 26.7 - 34.0 pg 12/08/2021 8:58 AM CDT [facility] MCHC 31.1 30.8 - 35.9 gm/dL 12/08/2021 8:58 AM CDT [facility] Platelet Count 401 153 - 416 x10E9/L 12/08/2021 8:58 AM CDT [facility] RDW-CV 13.2 12.1 - 14.9 % 12/08/2021 8:58 AM CDT [facility] MPV 10.3 9.4 - 12.9 fl 12/08/2021 8:58 AM CDT [facility] Neutrophils % 65.8 44.0 - 73.0 % 12/08/2021 8:58 AM CDT [facility] Lymphocytes % 23.0 20.0 - 43.0 % 12/08/2021 8:58 AM CDT [facility] Monocytes % 8.4 5.0 - 13.0 % 12/08/2021 8:58 AM CDT [facility] Eosinophils % 2.3 0.0 - 6.0 % 12/08/2021 8:58 AM CDT [facility] Basophils % 0.3 0.0 - 2.0 % 12/08/2021 8:58 AM CDT [facility] Immature Granulocytes 0.2 0 - 1 % 12/08/2021 8:58 AM CDT [facility] Neutrophil Absolute 5.70 2.01 - 7.14 x10E9/L 12/08/2021 8:58 AM CDT [facility] Lymphocytes Absolute 2.00 1.07 - 3.94 x10E9/L 12/08/2021 8:58 AM CDT [facility] Monocytes Absolute 0.73 0.26 - 1.07 x10E9/L 12/08/2021 8:58 AM CDT [facility] Eosinophils Absolute 0.20 0 - 0.47 x10E9/L 12/08/2021 8:58 AM CDT [facility] Basophils Absolute 0.03 0 - 0.08 x10E9/L 12/08/2021 8:58 AM CDT [facility] Immature Granulocytes Absolute 0.02 0.00 - 0.06 x10E9/L 12/08/2021 8:58 AM CDT [facility] nRBC Auto 0 /100 WBC 12/08/2021 8:58 AM CDT [facility] Blood BLOOD SPECIMEN / Unknown Venipuncture / Unknown 12/08/2021 3:25 AM CDT 12/08/2021 8:41 AM CDT Alverto Virgen MD LAB - HEMATOLOGY ORDERABLES [facility] [address] [place] [address] * (ABNORMAL) COMPREHENSIVE METABOLIC PANEL (12/08/2021 3:25 AM CDT) [facility] Glucose 103 70 - 105 mg/dL 12/08/2021 9:24 AM CDT [facility] Sodium 139 136 - 145 mmol/L 12/08/2021 9:24 AM CDT [facility] Potassium 4.9 3.5 - 5.1 mmol/L 12/08/2021 9:24 AM CDT [facility] Chloride 100 98 - 107 mmol/L 12/08/2021 9:24 AM CDT [facility] CO2 24 23 - 31 mmol/L 12/08/2021 9:24 AM CDT [facility] Calcium 10.1 8.4 - 10.4 mg/dL 12/08/2021 9:24 AM T [facility] Anion Gap 15 8 - 18 mmol/L 12/08/2021 9:24 AM T [facility] BUN 33(H) 8.9 - 20.6 mg/dL 12/08/2021 9:24 AM [facility] Creatinine 1.11 0.72 - 1.25 mg/dL 12/08/2021 9:24 AM [facility] Alkaline Phosphatase 135 40 - 150 U/L 12/08/2021 9:24 AM CDT [facility] ALT 16 0 - 61 U/L 12/08/2021 9:24 AM CDT [facility] AST 13 5 - 34 U/L 12/08/2021 9:24 AM T [facility] Protein Total 7.7 6.4 - 8.3 gm/dL 12/08/2021 9:24 AM [facility] Albumin 3.8 3.5 - 5.2 gm/dL 12/08/2021 9:24 AM T [facility] Bilirubin Total 0.3 0.2 - 1.2 mg/dL 12/08/2021 9:24 AM [facility] eGFR by CKD-EPI 89(L) >=90 mL/min/1.7 3 m2 12/08/2021 9:24 AM [facility] Blood BLOOD SPECIMEN / Unknown Venipuncture / Unknown 12/08/2021 3:25 AM CDT 12/08/2021 8:41 AM CDT Alverto Virgen MD LAB - CHEMISTRY O RDERABLES [facility] [address] [place] [address] documented in this encounter Visit Diagnoses Not on filedocumented in this encounter Care Teams Research Consultant Relationship Specialty Start Date End Date Pepe Martel MD [address] [place] [id number] PCP - General 08/14/16 documented as of this encounter
--- OUTSIDE RECORDS SUMMARY | 2024-05-23 03:18 | XMS_ITS | Clinical Summary ---
Author Organization [facility] [employer] Address [address] [facility] [place] [address] Care Team Providers Care Front End Developer Name Role Phone Pepe Martel MD Primary Care Provider [phone] Source Comments [facility],non-owned Affiliates and Associated Physician Practices is amultiple site organization consisting of ambulatory clinics and hospital sitesin [place], [place], [place] and [place]. This disclosure is being madepursuant to the Care Everywhere program and may not contain all information available regarding this patient. Last updated 18.[facility] Allergies No known active allergies Medications * [...] Blood Pressure 108/66 04/01/2021 7:00 PM [employer] OF [employer] Pulse 93 04/01/2021 7:00 PM [employer] OF PUBLIC [employer] Temperature 37.7 ??C (99.8 ??F) 04/01/2021 4:00 PM CS T Respiratory Rate 23 04/01/2021 7:00 PM [employer] OF PUBLIC [employer] Oxygen Saturation 97% 04/01/2021 7:00 PM [employer] Inhaled Oxygen Concentration 25% 04/01/2021 7 :00 PM [employer] OF [employer] Weight 163.3 kg (360 lb) 03/27/2021 4:00 AM [employer] no scd Height 177.8 cm (5' 10 ) 03/23/2021 1:08 PM [employer] Body Mass Index 51.65 03/23/2021 1:08 PM [employer] Plan of Treatment Health Maintenance Due Date Last Done Comments PNEUMOCOCCAL VACCINE (1 of 2 - PCV) 12/30/1991 HIV SCREENING 2000 HEPATITIS C SCREENING 12/25/2003 HEPATITIS B VACCINE (1 of 3 - 19+ 3-dose series) 2004 COVID-19 VACCINE (2023-2 5 season) 2024 INFLUENZA VACCINE (#1) 2024 DEPRESSION SCREENING 05/17/2024 DTAP/TDAP/TD VACCINES (2 - T d or Tdap) 02/15/2031 02/15/2021 ZOSTER VACCINE (1 of 2) 12/30/2035 HIB VACCINE Aged Out No longer eligi ble based on patient's age to complete this topic HPV VACCINE Aged Out No longer eligi ble based on patient's age to complete this topic MENINGOCOCCAL VACCINE Aged Out No suki chey eligible based on patient's age to complete this topic Advance Directives Documents on File Type Date Recorded Patient Spiral Winder Expl anation Adv Directive/Living Will/POA 09/22/2021 5:10 PM Adv Directive/Living Will/POA 07/31/2021 3:08 PM * Full Code (Latest Code Status on File) Date Activated Date Inactivated Comments 03/24/2021 4:29 AM 04/01/2021 8:42 PM * Full Code Date Activated Date Inactivated Comments 02/16/2021 11:12 AM 03/12/2021 10:10 PM * Full Code Date Activated Date Inactivated Comments 02/15/2021 12:03 PM 02/16/2021 11:12 AM Care Teams Front End Developer Relationship Specialty Start Date End Date Pepe Martel MD [address] [place] [address] [address] [place] [address] PCP - General 08/14/16
--- OUTSIDE RECORDS SUMMARY | 2024-05-23 03:18 | XMS_ITS | Encounter Summary ---
Author Organization [facility] Address [address] [place] [address] Care Team Providers Care Golf Course Designer Name Role Phone Pepe Martel MD Primary Care Provider [phone] Encounter Details Date Type Department Care Team (Late st Contact Info) Description 12/11/2021 Lab Requisition [facility] [address] [place] [address] Alverto Virgen MD [address] [place] [address] [place] [address] Social History Tobacco Use Types Packs/Day Years [...] Associated Diagnosis Comments COMPREHENSIVE METABOLIC PANEL STAT 12/11/2021 4:46 AM CDT documented in this encounter Results * (ABNORMAL) COMPREHENSIVE METABOLIC PANEL (12/11/2021 4:46 AM CDT) Glucose 105 70 - 105 mg/dL 12/11/2021 11:42 AM CDT [facility] Sodium 141 136 - 145 mmol/L 12/11/2021 11:42 AM CDT [facility] Potassium 5.7(H) 3.5 - 5.1 mmol/L 12/11/2021 11:42 AM CDT [facility] Chloride 102 98 - 107 mmol/L 12/11/2021 11:42 AM CDT [facility] CO2 22(L) 23 - 31 mmol/L 12/11/2021 11:42 AM CDT [facility] Calcium 10.5(H) 8.4 - 10.4 mg/dL 12/11/2021 11:42 AM CDT [facility] Anion Gap 17 8 - 18 mmol/L 12/11/2021 11:42 AM CDT [facility] BUN 30(H) 8.9 - 20.6 mg/dL 12/11/2021 11:42 AM CDT [facility] Creatinine 1.10 0.72 - 1.25 mg/dL 12/11/2021 11:42 AM CDT [facility] Alkaline Phosphatase 133 40 - 150 U/L 12/11/2021 11:42 AM CDT [facility] ALT 19 0 - 61 U/L 12/11/2021 11:42 AM CDT [facility] AST 17 5 - 34 U/L 12/11/2021 11:42 AM CDT [facility] Protein Total 7.9 6.4 - 8.3 gm/dL 12/11/2021 11:42 AM CDT [facility] Albumin 3.7 3.5 - 5.2 gm/dL 12/11/2021 11:42 AM CDT [facility] Bilirubin Total 0.2 0.2 - 1.2 mg/dL 12/11/2021 11:42 AM CDT [facility] eGFR by CKD-EPI 90 >=90 mL/min/1.7 3 m2 12/11/2021 11:42 AM CDT [facility] Blood BLOOD SPECIMEN / Unknown Venipuncture / Unknown 12/11/2021 4:46 AM CDT 12/11/2021 10:44 AM CDT Alverto Virgen MD LAB - CHEMISTRY O RDERABLES [facility] [address] [place] [address] documented in this encounter Visit Diagnoses Not on filedocumented in this encounter Care Teams Golf Course Designer Relationship Specialty Start Date End Date Pepe Martel MD [address] [facility] [address] [place] [address] PCP - General 08/14/16 documented as of this encounter
--- OUTSIDE RECORDS SUMMARY | 2024-05-23 03:18 | XMS_ITS | Encounter Summary ---
Author Organization [facility] Address [address] [facility] [place] [address] Care Team Providers Care Crop Ranch Hand Name Role Phone Pepe Martel MD Primary Care Provider [phone] Encounter Details Date Type Department Care Team (Late st Contact Info) Description 12/18/2021 Lab Requisition [facility] [address] [place] [address] Alverto Virgen MD [address] [place] [address] [place] [address] Social History Tobacco Use Types Packs/Day Years [...] Associated Diagnosis Comments COMPREHENSIVE METABOLIC PANEL STAT 12/18/2021 3:58 AM CDT documented in this encounter Results * (ABNORMAL) COMPREHENSIVE METABOLIC PANEL (12/18/2021 3:58 AM CDT) Glucose 91 70 - 105 mg/dL 12/18/2021 9:33 AM CDT [facility] Sodium 137 136 - 145 mmol/L 12/18/2021 9:33 AM CDT [facility] Potassium 5.5(H) 3.5 - 5.1 mmol/L 12/18/2021 9:33 AM CDT [facility] Chloride 101 98 - 107 mmol/L 12/18/2021 9:33 AM CDT [facility] CO2 22(L) 23 - 31 mmol/L 12/18/2021 9:33 AM CDT [facility] Calcium 10.0 8.4 - 10.4 mg/dL 12/18/2021 9:33 AM CDT [facility] Anion Gap 14 8 - 18 mmol/L 12/18/2021 9:33 AM CDT [facility] BUN 29(H) 8.9 - 20.6 mg/dL 12/18/2021 9:33 AM CDT [facility] Creatinine 1.02 0.72 - 1.25 mg/dL 12/18/2021 9:33 AM CDT [facility] Alkaline Phosphatase 129 40 - 150 U/L 12/18/2021 9:33 AM CDT [facility] ALT 17 0 - 61 U/L 12/18/2021 9:33 AM CDT [facility] AST 19 5 - 34 U/L 12/18/2021 9:33 AM CDT [facility] Protein Total 7.9 6.4 - 8.3 gm/dL 12/18/2021 9:33 AM CDT [facility] Albumin 3.6 3.5 - 5.2 gm/dL 12/18/2021 9:33 AM CDT [facility] Bilirubin Total 0.1(L) 0.2 - 1.2 mg/dL 12/18/2021 9:33 AM CDT [facility] eGFR by CKD-EPI >90 >=90 mL/min/1.7 3 m2 12/18/2021 9:33 AM CDT [facility] Blood BLOOD SPECIMEN / Unknown Venipuncture / Unknown 12/18/2021 3:58 AM CDT 12/18/2021 8:56 AM CDT Alverto Virgen MD LAB - CHEMISTRY O RDERABLES [facility] [address] [place] [address] documented in this encounter Visit Diagnoses Not on filedocumented in this encounter Care Teams Crop Ranch Hand Relationship Specialty Start Date End Date Pepe Martel MD [address] [place] [address] [address] [place] [address] PCP - General 08/14/16 documented as of this encounter
--- OUTSIDE RECORDS SUMMARY | 2024-05-23 03:18 | XMS_ITS | Encounter Summary ---
Author Organization [facility] Address [address] [place] [address] Care Team Providers Care Auto Service Station Attendant Name Role Phone Pepe Martel MD Primary Care Provider [phone] Encounter Details Date Type Department Care Team (Late st Contact Info) Description 12/15/2021 Lab Requisition [facility] [address] [place] [address] Alverto Virgen MD [address] [place] [address] [place] [address] Social History Tobacco Use Types Packs/Day Years [...] Diagnosis Comments CBC W AUTO DIFFERENTIAL STAT 12/15/2021 3:20 AM CDT COMPREHENSIVE METABOLIC PANEL STAT 12/15/2021 3:20 AM CDT documented in this encounter Results * (ABNORMAL) CBC WITH DIFFERENTIAL (12/15/2021 3:20 AM CDT) WBC 7.1 4.4 - 10.7 x10E9/L 12/15/2021 10:43 AM CDT [facility] WBC Corrected 12/15/2021 10:43 AM CDT [facility] RBC 4.09 3.80 - 5.40 x10E12/L 12/15/2021 10:43 AM CDT [facility] Hemoglobin 11.0(L) 12.0 - 17.6 gm/dL 12/15/2021 10:43 AM CDT [facility] Hematocrit 35.7 35.2 - 51.7 % 12/15/2021 10:43 AM CDT [facility] MCV 87.3 80.7 - 98.3 fl 12/15/2021 10:43 AM CDT [facility] MCH 26.9 26.7 - 34.0 pg 12/15/2021 10:43 AM CDT [facility] MCHC 30.8 30.8 - 35.9 gm/dL 12/15/2021 10:43 AM CDT [facility] Platelet Count 457(H) 153 - 416 x10E9/L 12/15/2021 10:43 AM CDT [facility] RDW-CV 13.2 12.1 - 14.9 % 12/15/2021 10:43 AM CDT [facility] MPV 10.1 9.4 - 12.9 fl 12/15/2021 10:43 AM CDT [facility] Neutrophils % 57.1 44.0 - 73.0 % 12/15/2021 10:43 AM CDT [facility] Lymphocytes % 27.2 20.0 - 43.0 % 12/15/2021 10:43 AM CDT [facility] Monocytes % 11.5 5.0 - 13.0 % 12/15/2021 10:43 AM CDT [facility] Eosinophils % 3.5 0.0 - 6.0 % 12/15/2021 10:43 AM CDT [facility] Basophils % 0.4 0.0 - 2.0 % 12/15/2021 10:43 AM CDT [facility] Immature Granulocytes 0.3 0 - 1 % 12/15/2021 10:43 AM CDT [facility] Neutrophil Absolute 4.02 2.01 - 7.14 x10E9/L 12/15/2021 10:43 AM CDT [facility] Lymphocytes Absolute 1.92 1.07 - 3.94 x10E9/L 12/15/2021 10:43 AM CDT [facility] Monocytes Absolute 0.81 0.26 - 1.07 x10E9/L 12/15/2021 10:43 AM CDT [facility] Eosinophils Absolute 0.25 0 - 0.47 x10E9/L 12/15/2021 10:43 AM CDT [facility] Basophils Absolute 0.03 0 - 0.08 x10E9/L 12/15/2021 10:43 AM CDT [facility] Immature Granulocytes Absolute 0.02 0.00 - 0.06 x10E9/L 12/15/2021 10:43 AM CDT [facility] nRBC Auto 0 /100 WBC 12/15/2021 10:43 AM T [facility] Blood BLOOD SPECIMEN / Unknown Venipuncture / Unknown 12/15/2021 3:20 AM CDT 12/15/2021 8:21 AM CDT Alverto Virgen MD LAB - HEMATOLOGY ORDERABLES [facility] [address] [place] [address] * (ABNORMAL) COMPREHENSIVE METABOLIC PANEL (12/15/2021 3:20 AM CDT) [facility] Glucose 93 70 - 105 mg/dL 12/15/2021 11:07 AM CDT [facility] Sodium 140 136 - 145 mmol/L 12/15/2021 11:07 AM [facility] Potassium 5.3(H) 3.5 - 5.1 mmol/L 12/15/2021 11:07 AM [facility] Chloride 101 98 - 107 mmol/L 12/15/2021 11:07 AM [facility] CO2 25 23 - 31 mmol/L 12/15/2021 11:07 AM [facility] Calcium 10.0 8.4 - 10.4 mg/dL 12/15/2021 11:07 AM [facility] Anion Gap 14 8 - 18 mmol/L 12/15/2021 11:07 AM [facility] BUN 30(H) 8.9 - 20.6 mg/dL 12/15/2021 11:07 AM [facility] Creatinine 0.99 0.72 - 1.25 mg/dL 12/15/2021 11:07 AM [facility] Alkaline Phosphatase 131 40 - 150 U/L 12/15/2021 11:07 AM [facility] ALT 18 0 - 61 U/L 12/15/2021 11:07 AM [facility] AST 12 5 - 34 U/L 12/15/2021 11:07 AM [facility] Protein Total 7.6 6.4 - 8.3 gm/dL 12/15/2021 11:07 AM [facility] Albumin 3.7 3.5 - 5.2 gm/dL 12/15/2021 11:07 AM [facility] Bilirubin Total 0.3 0.2 - 1.2 mg/dL 12/15/2021 11:07 AM [facility] eGFR by CKD-EPI >90 >=90 mL/min/1.7 3 m2 12/15/2021 11:07 AM [facility] Blood BLOOD SPECIMEN / Unknown Venipuncture / Unknown 12/15/2021 3:20 AM CDT 12/15/2021 8:21 AM T Alverto Virgen MD LAB - CHEMISTRY O RDERABLES [facility] [address] [place] [address] documented in this encounter Visit Diagnoses Not on filedocumented in this encounter Care Teams Auto Service Station Attendant Relationship Specialty Start Date End Date Pepe Martel MD [address] [place] [address] PCP - General 08/14/16 documented as of this encounter
--- OUTSIDE RECORDS SUMMARY | 2024-05-23 03:18 | XMS_ITS | Encounter Summary ---
Author Organization [facility] Address [address] [place] [address] Care Team Providers Care Elementary [employer] Tutor Name Role Phone Pepe Martel MD Primary Care Provider [phone] Encounter Details Date Type Department Care Team (Late st Contact Info) Description 01/01/2022 Lab Requisition [facility] [address] [place] [address] Alverto Virgen MD [address] [place] [address] [place] [address] Social History Tobacco Use Types Packs/Day Years [...] Associated Diagnosis Comments COMPREHENSIVE METABOLIC PANEL STAT 01/01/2022 4:23 AM CDT documented in this encounter Results * (ABNORMAL) COMPREHENSIVE METABOLIC PANEL (01/01/2022 4:23 AM CDT) Glucose 96 70 - 105 mg/dL 01/01/2022 8:57 AM CDT [facility] Sodium 140 136 - 145 mmol/L 01/01/2022 8:57 AM CDT [facility] Potassium 4.8 3.5 - 5.1 mmol/L 01/01/2022 8:57 AM CDT [facility] Chloride 103 98 - 107 mmol/L 01/01/2022 8:57 AM CDT [facility] CO2 25 23 - 31 mmol/L 01/01/2022 8:57 AM CDT [facility] Calcium 10.4 8.4 - 10.4 mg/dL 01/01/2022 8:57 AM CDT [facility] Anion Gap 12 8 - 18 mmol/L 01/01/2022 8:57 AM CDT [facility] BUN 30(H) 8.9 - 20.6 mg/dL 01/01/2022 8:57 AM CDT [facility] Creatinine 1.03 0.72 - 1.25 mg/dL 01/01/2022 8:57 AM CDT [facility] Alkaline Phosphatase 152(H) 40 - 150 U/L 01/01/2022 8:57 AM CDT [facility] ALT 20 0 - 61 U/L 01/01/2022 8:57 AM CDT [facility] AST 13 5 - 34 U/L 01/01/2022 8:57 AM CDT [facility] Protein Total 8.1 6.4 - 8.3 gm/dL 01/01/2022 8:57 AM CDT [facility] Albumin 3.9 3.5 - 5.2 gm/dL 01/01/2022 8:57 AM CDT [facility] Bilirubin Total 0.3 0.2 - 1.2 mg/dL 01/01/2022 8:57 AM CDT [facility] eGFR by CKD-EPI >90 >=90 mL/min/1.7 3 m2 01/01/2022 8:57 AM CDT [facility] Blood BLOOD SPECIMEN / Unknown Venipuncture / Unknown 01/01/2022 4:23 AM CDT 01/01/2022 8:15 AM CDT Alverto Virgen MD LAB - CHEMISTRY O RDERABLES [facility] [address] [place], [place] [address] documented in this encounter Visit Diagnoses Not on filedocumented in this encounter Care Teams [employer] Tutor Relationship Specialty Start Date End Date Pepe Martel MD [address] [place] [address] 3 [place] [address] PCP - General 08/14/16 documented as of this encounter
--- OUTSIDE RECORDS SUMMARY | 2024-05-23 03:18 | XMS_ITS | Encounter Summary ---
Author Organization [facility] Address [address] [place] [address] Care Team Providers Care Boiler Repairman Name Role Phone Pepe Martel MD Primary Care Provider [phone] Encounter Details Date Type Department Care Team (Late st Contact Info) Description 12/25/2021 Lab Requisition [facility] [address] [place] [address] Alverto Virgen MD [address] [place] [address] [place] [address] Social History Tobacco Use Types Packs/Day Years [...] Associated Diagnosis Comments COMPREHENSIVE METABOLIC PANEL STAT 12/25/2021 5:09 AM CDT documented in this encounter Results * (ABNORMAL) COMPREHENSIVE METABOLIC PANEL (12/25/2021 5:09 AM CDT) Glucose 91 70 - 105 mg/dL 12/25/2021 11:02 AM CDT [facility] Sodium 141 136 - 145 mmol/L 12/25/2021 11:02 AM CDT [facility] Potassium 4.5 3.5 - 5.1 mmol/L 12/25/2021 11:02 AM CDT [facility] Chloride 104 98 - 107 mmol/L 12/25/2021 11:02 AM CDT [facility] CO2 23 23 - 31 mmol/L 12/25/2021 11:02 AM CDT [facility] Calcium 10.0 8.4 - 10.4 mg/dL 12/25/2021 11:02 AM CDT [facility] Anion Gap 14 8 - 18 mmol/L 12/25/2021 11:02 AM CDT [facility] BUN 33(H) 8.9 - 20.6 mg/dL 12/25/2021 11:02 AM CDT [facility] Creatinine 1.07 0.72 - 1.25 mg/dL 12/25/2021 11:02 AM CDT [facility] Alkaline Phosphatase 132 40 - 150 U/L 12/25/2021 11:02 AM CDT [facility] ALT 16 0 - 61 U/L 12/25/2021 11:02 AM CDT [facility] AST 10 5 - 34 U/L 12/25/2021 11:02 AM CDT [facility] Protein Total 7.7 6.4 - 8.3 gm/dL 12/25/2021 11:02 AM CDT [facility] Albumin 3.8 3.5 - 5.2 gm/dL 12/25/2021 11:02 AM CDT [facility] Bilirubin Total 0.3 0.2 - 1.2 mg/dL 12/25/2021 11:02 AM CDT [facility] eGFR by CKD-EPI >90 >=90 mL/min/1.7 3 m2 12/25/2021 11:02 AM T [facility] Blood BLOOD SPECIMEN / Unknown Venipuncture / Unknown 12/25/2021 5:09 AM CDT 12/25/2021 9:50 AM CDT Alverto Virgen MD LAB - CHEMISTRY O RDERABLES Performing Organization Address City/State/[facility] Co de Phone Number [facility] [address] [place] [address] documented in this encounter Visit Diagnoses Not on filedocumented in this encounter Care Teams Boiler Repairman Relationship Specialty Start Date End Date Pepe Martel MD [address] [place] [id number] PCP - General 08/14/16 documented as of this encounter
--- OUTSIDE RECORDS SUMMARY | 2024-05-23 03:18 | XMS_ITS | Encounter Summary ---
Author Organization [facility] Address [address] [facility] [place] [address] Care Team Providers Care Aligner Typewriter Name Role Phone Pepe Martel MD Primary Care Provider [phone] Encounter Details Date Type Department Care Team (Late st Contact Info) Description 12/12/2021 Lab Requisition [facility] [address] [place] [address] [place] [address] [place] [address] Social History Tobacco Use Types Packs/Day Years [...] Procedure Name Priority Date/Time Associated Diagnosis Comments BASIC METABOLIC PANEL (CALCIUM TOTAL) STAT 12/12/2021 4:00 AM CDT documented in this encounter Results * (ABNORMAL) BASIC METABOLIC PANEL (CALCIUM TOTAL) (12/12/2021 4:00 AM CDT) [facility] Glucose 87 70 - 105 mg/dL 12/12/2021 10:10 AM CDT [facility] Sodium 139 136 - 145 mmol/L 12/12/2021 10:10 AM CDT [facility] Potassium 5.2(H) 3.5 - 5.1 mmol/L 12/12/2021 10:10 AM CDT [facility] Chloride 99 98 - 107 mmol/L 12/12/2021 10:10 AM CDT [facility] CO2 26 23 - 31 mmol/L 12/12/2021 10:10 AM CDT [facility] Calcium 10.2 8.4 - 10.4 mg/dL 12/12/2021 10:10 AM CDT [facility] Anion Gap 14 8 - 18 mmol/L 12/12/2021 10:10 AM CDT [facility] BUN 30(H) 8.9 - 20.6 mg/dL 12/12/2021 10:10 AM CDT [facility] Creatinine 1.07 0.72 - 1.25 mg/dL 12/12/2021 10:10 AM CDT [facility] eGFR by CKD-EPI >90 >=90 mL/min/1.7 3 m2 12/12/2021 10:10 AM CDT [facility] Blood BLOOD SPECIMEN / Unknown Venipuncture / Unknown 12/12/2021 4:00 AM CDT 12/12/2021 8:11 AM CDT Braden Hernandez MD LAB - CHEMISTRY [facility]SE [facility] Organization Address City/State/ZIP Co de Phone Number [facility] [address] [place] [address] documented in this encounter Visit Diagnoses Not on filedocumented in this encounter Care Teams Aligner Typewriter Relationship Specialty Start Date End Date Pepe Martel MD [address] [place] [address] PCP - General 08/14/16 documented as of this encounter
--- OUTSIDE RECORDS SUMMARY | 2024-05-23 03:19 | XMS_ITS | Encounter Summary ---
Author Organization [facility] Address [address] [address] Care Team Providers Care Printing Estimator Name Role Phone Pepe Martel MD Primary Care Provider [phone] Encounter Details Date Type Department Care Team (Late st Contact Info) Description 09/11/2021 Lab Requisition [facility] [address] [place] [address] [place] [address] [place] [address] Social History Tobacco Use Types Packs/Day Years [...] Diagnosis Comments CBC W AUTO DIFFERENTIAL STAT 09/11/2021 4:30 AM CDT COMPREHENSIVE METABOLIC PANEL STAT 09/11/2021 4:30 AM CDT documented in this encounter Results * (ABNORMAL) CBC WITH DIFFERENTIAL (09/11/2021 4:30 AM CDT) WBC 7.8 4.4 - 10.7 x10E9/L 09/11/2021 10:16 AM CDT [facility] WBC Corrected 09/11/2021 10:16 AM CDT [facility] RBC 4.39 3.80 - 5.40 x10E12/L 09/11/2021 10:16 AM CDT [facility] Hemoglobin 11.6(L) 12.0 - 17.6 gm/dL 09/11/2021 10:16 AM CDT [facility] Hematocrit 37.8 35.2 - 51.7 % 09/11/2021 10:16 AM CDT [facility] MCV 86.1 80.7 - 98.3 fl 09/11/2021 10:16 AM CDT [facility] MCH 26.4(L) 26.7 - 34.0 pg 09/11/2021 10:16 AM CDT [facility] MCHC 30.7(L) 30.8 - 35.9 gm/dL 09/11/2021 10:16 AM CDT [facility] Platelet Count 469(H) 153 - 416 x10E9/L 09/11/2021 10:16 AM CDT [facility] RDW-CV 14.2 12.1 - 14.9 % 09/11/2021 10:16 AM CDT [facility] MPV 10.1 9.4 - 12.9 fl 09/11/2021 10:16 AM CDT [facility] Neutrophils % 63.0 44.0 - 73.0 % 09/11/2021 10:16 AM CDT [facility] Lymphocytes % 23.4 20.0 - 43.0 % 09/11/2021 10:16 AM CDT [facility] Monocytes % 10.4 5.0 - 13.0 % 09/11/2021 10:16 AM CDT [facility] Eosinophils % 2.7 0.0 - 6.0 % 09/11/2021 10:16 AM CDT [facility] Basophils % 0.4 0.0 - 2.0 % 09/11/2021 10:16 AM CDT [facility] Immature Granulocytes 0.1 0 - 1 % 09/11/2021 10:16 AM CDT [facility] Neutrophil Absolute 4.91 2.01 - 7.14 x10E9/L 09/11/2021 10:16 AM CDT [facility] Lymphocytes Absolute 1.82 1.07 - 3.94 x10E9/L 09/11/2021 10:16 AM CDT [facility] Monocytes Absolute 0.81 0.26 - 1.07 x10E9/L 09/11/2021 10:16 AM CDT [facility] Eosinophils Absolute 0.21 0 - 0.47 x10E9/L 09/11/2021 10:16 AM CDT [facility] Basophils Absolute 0.03 0 - 0.08 x10E9/L 09/11/2021 10:16 AM CDT [facility] Immature Granulocytes Absolute 0.01 0.00 - 0.06 x10E9/L 09/11/2021 10:16 AM CDT [facility] nRBC Auto 0 /100 WBC 09/11/2021 10:16 AM CDT [facility] Blood BLOOD SPECIMEN / Unknown Venipuncture / Unknown 09/11/2021 4:30 AM CDT 09/11/2021 9:37 AM CDT Vinicio Quintanilla MD LAB - HEMATOLOGY ORD ERABLES [facility] [address] [place] [address] * (ABNORMAL) COMPREHENSIVE METABOLIC PANEL (09/11/2021 4:30 AM CDT) [facility] Glucose 93 70 - 105 mg/dL 09/11/2021 10:39 AM CDT [facility] Sodium 138 136 - 145 mmol/L 09/11/2021 10:39 AM CDT [facility] Potassium 4.7 3.5 - 5.1 mmol/L 09/11/2021 10:39 AM CDT [facility] Chloride 100 98 - 107 mmol/L 09/11/2021 10:39 AM CDT [facility] CO2 22(L) 23 - 31 mmol/L 09/11/2021 10:39 AM CDT [facility] Calcium 10.0 8.4 - 10.4 mg/dL 09/11/2021 10:39 AM CDT [facility] Anion Gap 16 8 - 18 mmol/L 09/11/2021 10:39 AM CDT [facility] BUN 29(H) 8.9 - 20.6 mg/dL 09/11/2021 10:39 AM CDT [facility] Creatinine 0.97 0.72 - 1.25 mg/dL 09/11/2021 10:39 AM CDT [facility] Alkaline Phosphatase 146 40 - 150 U/L 09/11/2021 10:39 AM CDT [facility] ALT 21 0 - 61 U/L 09/11/2021 10:39 AM CDT [facility] AST 16 5 - 34 U/L 09/11/2021 10:39 AM CDT [facility] Protein Total 7.7 6.4 - 8.3 gm/dL 09/11/2021 10:39 AM CDT [facility] Albumin 3.6 3.5 - 5.2 gm/dL 09/11/2021 10:39 AM T [facility] Bilirubin Total 0.2 0.2 - 1.2 mg/dL 09/11/2021 10:39 AM T [facility] eGFR by CKD-EPI >90 >=90 mL/min/1.7 3 m2 09/11/2021 10:39 AM T [facility] Blood BLOOD SPECIMEN / Unknown Venipuncture / Unknown 09/11/2021 4:30 AM CDT 09/11/2021 9:[address] [facility] - 09/11/2021 10:39 AM CDT eGFR result was calculated using the updated CKD-EPI Creatinine Equations (2020). Prior to go live 2021 the eGFR was calculated using the MDRD calculation. Please note Reference Range change. Vinicio Quintanilla MD LAB - CHEMISTRY JOSE ENRIQUE [facility] [place] Organization Address City/State/ZIP Co de Phone Number [facility] [address] [place] [address] documented in this encounter Visit Diagnoses Not on filedocumented in this encounter Care Teams Printing Estimator Relationship Specialty Start Date End Date Pepe Martel MD [address] [place] [address] 3 [place] [address] PCP - General 08/14/16 documented as of this encounter
--- OUTSIDE RECORDS SUMMARY | 2024-05-23 03:19 | XMS_ITS | Encounter Summary ---
Author Organization [facility] Address [address] [place] [address] Care Team Providers Care Writing Center Director Name Role Phone Pepe Martel MD Primary Care Provider [phone] Encounter Details Date Type Department Care Team (Late st Contact Info) Description 11/24/2021 Lab Requisition [facility] [address] [place] [address] Alverto Virgen MD [address] [place] [address] [place] [address] Social History Tobacco Use Types Packs/Day Years [...] Diagnosis Comments CBC W AUTO DIFFERENTIAL STAT 11/24/2021 4:50 AM CDT COMPREHENSIVE METABOLIC PANEL STAT 11/24/2021 4:50 AM CDT documented in this encounter Results * (ABNORMAL) CBC WITH DIFFERENTIAL (11/24/2021 4:50 AM CDT) WBC 6.5 4.4 - 10.7 x10E9/L 11/24/2021 11:46 AM CDT [facility] WBC Corrected 11/24/2021 11:46 AM CDT [facility] RBC 4.10 3.80 - 5.40 x10E12/L 11/24/2021 11:46 AM CDT [facility] Hemoglobin 11.2(L) 12.0 - 17.6 gm/dL 11/24/2021 11:46 AM CDT [facility] Hematocrit 35.0(L) 35.2 - 51.7 % 11/24/2021 11:46 AM CDT [facility] MCV 85.4 80.7 - 98.3 fl 11/24/2021 11:46 AM CDT [facility] MCH 27.3 26.7 - 34.0 pg 11/24/2021 11:46 AM CDT [facility] MCHC 32.0 30.8 - 35.9 gm/dL 11/24/2021 11:46 AM CDT [facility] Platelet Count 475(H) 153 - 416 x10E9/L 11/24/2021 11:46 AM CDT [facility] RDW-CV 13.1 12.1 - 14.9 % 11/24/2021 11:46 AM CDT [facility] MPV 9.9 9.4 - 12.9 fl 11/24/2021 11:46 AM CDT [facility] Neutrophils % 56.6 44.0 - 73.0 % 11/24/2021 11:46 AM CDT [facility] Lymphocytes % 30.6 20.0 - 43.0 % 11/24/2021 11:46 AM CDT [facility] Monocytes % 9.5 5.0 - 13.0 % 11/24/2021 11:46 AM CDT [facility] Eosinophils % 2.8 0.0 - 6.0 % 11/24/2021 11:46 AM CDT [facility] Basophils % 0.3 0.0 - 2.0 % 11/24/2021 11:46 AM CDT [facility] Immature Granulocytes 0.2 0 - 1 % 11/24/2021 11:46 AM CDT [facility] Neutrophil Absolute 3.68 2.01 - 7.14 x10E9/L 11/24/2021 11:46 AM CDT [facility] Lymphocytes Absolute 1.99 1.07 - 3.94 x10E9/L 11/24/2021 11:46 AM CDT [facility] Monocytes Absolute 0.62 0.26 - 1.07 x10E9/L 11/24/2021 11:46 AM CDT [facility] Eosinophils Absolute 0.18 0 - 0.47 x10E9/L 11/24/2021 11:46 AM CDT [facility] Basophils Absolute 0.02 0 - 0.08 x10E9/L 11/24/2021 11:46 AM CDT [facility] Immature Granulocytes Absolute 0.01 0.00 - 0.06 x10E9/L 11/24/2021 11:46 AM CDT [facility] nRBC Auto 0 /100 WBC 11/24/2021 11:46 AM CDT [facility] Blood BLOOD SPECIMEN / Unknown Venipuncture / Unknown 11/24/2021 4:50 AM CDT 11/24/2021 10:57 AM CDT Alverto Virgen MD LAB - HEMATOLOGY ORDERABLES [facility] [address] [place] [address] * (ABNORMAL) COMPREHENSIVE METABOLIC PANEL (11/24/2021 4:50 AM CDT) [facility] Signature Glucose 111(H) 70 - 105 mg/dL 11/24/2021 12:11 PM CDT [facility] Sodium 139 136 - 145 mmol/L 11/24/2021 12:11 PM CDT [facility] Potassium 4.8 3.5 - 5.1 mmol/L 11/24/2021 12:11 PM CDT [facility] Chloride 101 98 - 107 mmol/L 11/24/2021 12:11 PM CDT [facility] CO2 25 23 - 31 mmol/L 11/24/2021 12:11 PM T [facility] Calcium 9.9 8.4 - 10.4 mg/dL 11/24/2021 12:11 PM [facility] Anion Gap 13 8 - 18 mmol/L 11/24/2021 12:11 PM [facility] BUN 31(H) 8.9 - 20.6 mg/dL 11/24/2021 12:11 PM [facility] Creatinine 0.94 0.72 - 1.25 mg/dL 11/24/2021 12:11 PM [facility] Alkaline Phosphatase 123 40 - 150 U/L 11/24/2021 12:11 PM CDT [facility] ALT 21 0 - 61 U/L 11/24/2021 12:11 PM [facility] AST 15 5 - 34 U/L 11/24/2021 12:11 PM [facility] Protein Total 7.5 6.4 - 8.3 gm/dL 11/24/2021 12:11 PM [facility] Albumin 3.6 3.5 - 5.2 gm/dL 11/24/2021 12:11 PM [facility] Bilirubin Total 0.3 0.2 - 1.2 mg/dL 11/24/2021 12:11 PM [facility] eGFR by CKD-EPI >90 >=90 mL/min/1.7 3 m2 11/24/2021 12:11 PM [facility] Blood BLOOD SPECIMEN / Unknown Venipuncture / Unknown 11/24/2021 4:50 AM CDT 11/24/2021 10:57 AM CDT Alverto Virgen MD LAB - CHEMISTRY O RDERABLES [facility] [address] [place] [address] documented in this encounter Visit Diagnoses Not on filedocumented in this encounter Care Teams Writing Center Director Relationship Specialty Start Date End Date Pepe Martel MD [address] [place] [id number] PCP - General 08/14/16 documented as of this encounter
--- OUTSIDE RECORDS SUMMARY | 2024-05-23 03:19 | XMS_ITS | Encounter Summary ---
Author Organization [facility] Address [address] [place] [address] Care Team Providers Care Business Services Coordinator Name Role Phone Pepe Martel MD Primary Care Provider [phone] Encounter Details Date Type Department Care Team (Late st Contact Info) Description 07/28/2021 Lab Requisition [facility] [address] [place] [address] [place] [address] [place] [address] Social History Tobacco Use Types Packs/Day Years [...] Diagnosis Comments CBC W AUTO DIFFERENTIAL STAT 07/28/2021 4:50 AM CDT COMPREHENSIVE METABOLIC PANEL STAT 07/28/2021 4:50 AM CDT documented in this encounter Results * (ABNORMAL) CBC WITH DIFFERENTIAL (07/28/2021 4:50 AM CDT) WBC 11.2(H) 4.4 - 10.7 x10E9/L 07/28/2021 8:35 AM CDT [facility] WBC Corrected 07/28/2021 8:35 AM CDT [facility] RBC 4.58 3.80 - 5.40 x10E12/L 07/28/2021 8:35 AM CDT [facility] Hemoglobin 11.7(L) 12.0 - 17.6 gm/dL 07/28/2021 8:35 AM CDT [facility] Hematocrit 38.7 35.2 - 51.7 % 07/28/2021 8:35 AM CDT [facility] MCV 84.5 80.7 - 98.3 fl 07/28/2021 8:35 AM CDT [facility] MCH 25.5(L) 26.7 - 34.0 pg 07/28/2021 8:35 AM CDT [facility] MCHC 30.2(L) 30.8 - 35.9 gm/dL 07/28/2021 8:35 AM CDT [facility] Platelet Count 508(H) 153 - 416 x10E9/L 07/28/2021 8:35 AM CDT [facility] RDW-CV 14.6 12.1 - 14.9 % 07/28/2021 8:35 AM CDT [facility] MPV 9.9 9.4 - 12.9 fl 07/28/2021 8:35 AM CDT [facility] Neutrophils % 68.0 44.0 - 73.0 % 07/28/2021 8:35 AM CDT [facility] Lymphocytes % 19.6(L) 20.0 - 43.0 % 07/28/2021 8:35 AM CDT [facility] Monocytes % 9.0 5.0 - 13.0 % 07/28/2021 8:35 AM CDT [facility] Eosinophils % 2.8 0.0 - 6.0 % 07/28/2021 8:35 AM CDT [facility] Basophils % 0.3 0.0 - 2.0 % 07/28/2021 8:35 AM CDT [facility] Immature Granulocytes 0.3 0 - 1 % 07/28/2021 8:35 AM CDT [facility] Neutrophil Absolute 7.62(H) 2.01 - 7.14 x10E9/L 07/28/2021 8:35 AM CDT [facility] Lymphocytes Absolute 2.19 1.07 - 3.94 x10E9/L 07/28/2021 8:35 AM CDT [facility] Monocytes Absolute 1.01 0.26 - 1.07 x10E9/L 07/28/2021 8:35 AM CDT [facility] Eosinophils Absolute 0.31 0 - 0.47 x10E9/L 07/28/2021 8:35 AM CDT [facility] Basophils Absolute 0.03 0 - 0.08 x10E9/L 07/28/2021 8:35 AM CDT [facility] Immature Granulocytes Absolute 0.03 0.00 - 0.06 x10E9/L 07/28/2021 8:35 AM CDT [facility] nRBC Auto 0 /100 WBC 07/28/2021 8:35 AM CDT [facility] Blood BLOOD SPECIMEN / Unknown Venipuncture / Unknown 07/28/2021 4:50 AM CDT 07/28/2021 8:27 AM CDT Vinicio Quintanilla MD LAB - HEMATOLOGY ORD ERABLES [facility] [address] [place] [address] * (ABNORMAL) COMPREHENSIVE METABOLIC PANEL (07/28/2021 4:50 AM CDT) [facility] Glucose 95 70 - 105 mg/dL 07/28/2021 8:59 AM CDT [facility] Sodium 145 136 - 145 mmol/L 07/28/2021 8:59 AM CDT [facility] Potassium 5.1 3.5 - 5.1 mmol/L 07/28/2021 8:59 AM CDT [facility] Chloride 105 98 - 107 mmol/L 07/28/2021 8:59 AM CDT [facility] CO2 28 23 - 31 mmol/L 07/28/2021 8:59 AM CDT [facility] Calcium 10.6(H) 8.4 - 10.4 mg/dL 07/28/2021 8:59 AM T [facility] Anion Gap 12 8 - 18 mmol/L 07/28/2021 8:59 AM T [facility] BUN 32(H) 8.9 - 20.6 mg/dL 07/28/2021 8:59 AM T [facility] Creatinine 0.97 0.72 - 1.25 mg/dL 07/28/2021 8:59 AM T [facility] Alkaline Phosphatase 196(H) 40 - 150 U/L 07/28/2021 8:59 AM CDT [facility] ALT 30 0 - 61 U/L 07/28/2021 8:59 AM T [facility] AST 15 5 - 34 U/L 07/28/2021 8:59 AM T [facility] Protein Total 8.2 6.4 - 8.3 gm/dL 07/28/2021 8:59 AM T [facility] Albumin 3.9 3.5 - 5.2 gm/dL 07/28/2021 8:59 AM T [facility] Bilirubin Total 0.5 0.2 - 1.2 mg/dL 07/28/2021 8:59 AM [facility] eGFR by CKD-EPI >90 >=90 mL/min/1.7 3 m2 07/28/2021 8:59 AM [facility] Blood BLOOD SPECIMEN / Unknown Venipuncture / Unknown 07/28/2021 4:50 AM CDT 07/28/2021 8:27 AM CDT Narrative [facility] - 07/28/2021 8:59 AM T eGFR result was calculated using the updated CKD-EPI Creatinine Equations (2020). Prior to go live 2021 the eGFR was calculated using the MDRD calculation. Please note Reference Range change. Vinicio Quintanilla MD LAB - CHEMISTRY JOSE ENRIQUE VELA [facility] Organization Address City/State/ZIP Co de Phone Number [facility] [address] [place] [address] documented in this encounter Visit Diagnoses Not on filedocumented in this encounter Care Teams Business Services Coordinator Relationship Specialty Start Date End Date Pepe Martel MD [address] [place] [id number] PCP - General 08/14/16 documented as of this encounter
--- OUTSIDE RECORDS SUMMARY | 2024-05-23 03:19 | XMS_ITS | Encounter Summary ---
Author Organization [facility] Address [address] [place] [address] Care Team Providers Care Financial Sales Consultant Name Role Phone Pepe Martel MD Primary Care Provider [phone] Encounter Details Date Type Department Care Team (Late st Contact Info) Description 10/09/2021 Lab Requisition [facility] [address] [place] [address] [place] [address] [place] [address] Social History Tobacco Use Types Packs/Day Years [...] Diagnosis Comments CBC W AUTO DIFFERENTIAL STAT 10/09/2021 5:27 AM CDT COMPREHENSIVE METABOLIC PANEL STAT 10/09/2021 5:27 AM CDT documented in this encounter Results * (ABNORMAL) CBC WITH DIFFERENTIAL (10/09/2021 5:27 AM CDT) WBC 8.8 4.4 - 10.7 x10E9/L 10/09/2021 9:11 AM CDT [facility] WBC Corrected 10/09/2021 9:11 AM CDT [facility] RBC 4.36 3.80 - 5.40 x10E12/L 10/09/2021 9:11 AM CDT [facility] Hemoglobin 11.5(L) 12.0 - 17.6 gm/dL 10/09/2021 9:11 AM CDT [facility] Hematocrit 38.1 35.2 - 51.7 % 10/09/2021 9:11 AM CDT [facility] MCV 87.4 80.7 - 98.3 fl 10/09/2021 9:11 AM CDT [facility] MCH 26.4(L) 26.7 - 34.0 pg 10/09/2021 9:11 AM CDT [facility] MCHC 30.2(L) 30.8 - 35.9 gm/dL 10/09/2021 9:11 AM CDT [facility] Platelet Count 420(H) 153 - 416 x10E9/L 10/09/2021 9:11 AM CDT [facility] RDW-CV 14.0 12.1 - 14.9 % 10/09/2021 9:11 AM CDT [facility] MPV 10.8 9.4 - 12.9 fl 10/09/2021 9:11 AM CDT [facility] Neutrophils % 62.7 44.0 - 73.0 % 10/09/2021 9:11 AM CDT [facility] Lymphocytes % 22.4 20.0 - 43.0 % 10/09/2021 9:11 AM CDT [facility] Monocytes % 11.0 5.0 - 13.0 % 10/09/2021 9:11 AM CDT [facility] Eosinophils % 3.2 0.0 - 6.0 % 10/09/2021 9:11 AM CDT [facility] Basophils % 0.5 0.0 - 2.0 % 10/09/2021 9:11 AM CDT [facility] Immature Granulocytes 0.2 0 - 1 % 10/09/2021 9:11 AM CDT [facility] Neutrophil Absolute 5.49 2.01 - 7.14 x10E9/L 10/09/2021 9:11 AM CDT [facility] Lymphocytes Absolute 1.96 1.07 - 3.94 x10E9/L 10/09/2021 9:11 AM CDT [facility] Monocytes Absolute 0.96 0.26 - 1.07 x10E9/L 10/09/2021 9:11 AM CDT [facility] Eosinophils Absolute 0.28 0 - 0.47 x10E9/L 10/09/2021 9:11 AM CDT [facility] Basophils Absolute 0.04 0 - 0.08 x10E9/L 10/09/2021 9:11 AM CDT [facility] Immature Granulocytes Absolute 0.02 0.00 - 0.06 x10E9/L 10/09/2021 9:11 AM CDT [facility] nRBC Auto 0 /100 WBC 10/09/2021 9:11 AM T [facility] Blood BLOOD SPECIMEN / Unknown Venipuncture / Unknown 10/09/2021 5:27 AM CDT 10/09/2021 8:25 AM CDT Vinicio Quintanilla MD LAB - HEMATOLOGY ORD ERABLES [facility] [address] [place] [address] * (ABNORMAL) COMPREHENSIVE METABOLIC PANEL (10/09/2021 5:27 AM CDT) [facility] Glucose 123(H) 70 - 105 mg/dL 10/09/2021 9:28 AM CDT [facility] Sodium 143 136 - 145 mmol/L 10/09/2021 9:28 AM CDT [facility] Potassium 4.6 3.5 - 5.1 mmol/L 10/09/2021 9:28 AM CDT [facility] Chloride 105 98 - 107 mmol/L 10/09/2021 9:28 AM CDT [facility] CO2 24 23 - 31 mmol/L 10/09/2021 9:28 AM CDT [facility] Calcium 10.0 8.4 - 10.4 mg/dL 10/09/2021 9:28 AM [facility] Anion Gap 14 8 - 18 mmol/L 10/09/2021 9:28 AM CDT [facility] BUN 31(H) 8.9 - 20.6 mg/dL 10/09/2021 9:28 AM [facility] Creatinine 0.93 0.72 - 1.25 mg/dL 10/09/2021 9:28 AM [facility] Alkaline Phosphatase 150 40 - 150 U/L 10/09/2021 9:28 AM CDT [facility] ALT 25 0 - 61 U/L 10/09/2021 9:28 AM CDT [facility] AST 20 5 - 34 U/L 10/09/2021 9:28 AM [facility] Protein Total 7.4 6.4 - 8.3 gm/dL 10/09/2021 9:28 AM [facility] Albumin 3.6 3.5 - 5.2 gm/dL 10/09/2021 9:28 AM T [facility] Bilirubin Total 0.4 0.2 - 1.2 mg/dL 10/09/2021 9:28 AM [facility] eGFR by CKD-EPI >90 >=90 mL/min/1.7 3 m2 10/09/2021 9:28 AM T [facility] Blood BLOOD SPECIMEN / Unknown Venipuncture / Unknown 10/09/2021 5:27 AM CDT 10/09/2021 8:25 AM CDT Vinicio Quintanilla MD LAB - CHEMISTRY JOSE ENRIQUE VELA [facility] [place]) Organization Address City/State/ZIP Co de Phone Number [facility] [address] [place] [address] documented in this encounter Visit Diagnoses Not on filedocumented in this encounter Care Teams Financial Sales Consultant Relationship Specialty Start Date End Date Pepe Martel MD [address] [place] [id number] PCP - General 08/14/16 documented as of this encounter
--- OUTSIDE RECORDS SUMMARY | 2024-05-23 03:19 | XMS_ITS | Encounter Summary ---
Author Organization [facility] Address [address] [place] [address] Care Team Providers Care Photovoltaic Subcontractor Name Role Phone Pepe Martel MD Primary Care Provider [phone] Encounter Details Date Type Department Care Team (Late st Contact Info) Description 09/18/2021 Lab Requisition [facility] [address] [place] [address] [place] [address] [place] [address] Social History Tobacco Use Types Packs/Day Years [...] Diagnosis Comments CBC W AUTO DIFFERENTIAL STAT 09/18/2021 5:31 AM CDT COMPREHENSIVE METABOLIC PANEL STAT 09/18/2021 5:31 AM CDT documented in this encounter Results * (ABNORMAL) CBC WITH DIFFERENTIAL (09/18/2021 5:31 AM CDT) WBC 9.3 4.4 - 10.7 x10E9/L 09/18/2021 9:02 AM CDT [facility] WBC Corrected 09/18/2021 9:02 AM CDT [facility] RBC 4.74 3.80 - 5.40 x10E12/L 09/18/2021 9:02 AM CDT [facility] Hemoglobin 12.6 12.0 - 17.6 gm/dL 09/18/2021 9:02 AM CDT [facility] Hematocrit 41.6 35.2 - 51.7 % 09/18/2021 9:02 AM CDT [facility] MCV 87.8 80.7 - 98.3 fl 09/18/2021 9:02 AM CDT [facility] MCH 26.6(L) 26.7 - 34.0 pg 09/18/2021 9:02 AM CDT [facility] MCHC 30.3(L) 30.8 - 35.9 gm/dL 09/18/2021 9:02 AM CDT [facility] Platelet Count 481(H) 153 - 416 x10E9/L 09/18/2021 9:02 AM CDT [facility] RDW-CV 14.0 12.1 - 14.9 % 09/18/2021 9:02 AM CDT [facility] MPV 10.3 9.4 - 12.9 fl 09/18/2021 9:02 AM CDT [facility] Neutrophils % 62.2 44.0 - 73.0 % 09/18/2021 9:02 AM CDT [facility] Lymphocytes % 23.4 20.0 - 43.0 % 09/18/2021 9:02 AM CDT [facility] Monocytes % 12.8 5.0 - 13.0 % 09/18/2021 9:02 AM T [facility] Eosinophils % 1.1 0.0 - 6.0 % 09/18/2021 9:02 AM CDT [facility] Basophils % 0.4 0.0 - 2.0 % 09/18/2021 9:02 AM [facility] Immature Granulocytes 0.1 0 - 1 % 09/18/2021 9:02 AM [facility] Neutrophil Absolute 5.78 2.01 - 7.14 x10E9/L 09/18/2021 9:02 AM [facility] Lymphocytes Absolute 2.17 1.07 - 3.94 x10E9/L 09/18/2021 9:02 AM T [facility] Monocytes Absolute 1.19(H) 0.26 - 1.07 x10E9/L 09/18/2021 9:02 AM [facility] Eosinophils Absolute 0.10 0 - 0.47 x10E9/L 09/18/2021 9:02 AM [facility] Basophils Absolute 0.04 0 - 0.08 x10E9/L 09/18/2021 9:02 AM [facility] Immature Granulocytes Absolute 0.01 0.00 - 0.06 x10E9/L 09/18/2021 9:02 AM [facility] nRBC Auto 0 /100 WBC 09/18/2021 9:02 AM [facility] Blood BLOOD SPECIMEN / Unknown Venipuncture / Unknown 09/18/2021 5:31 AM CDT 09/18/2021 8:55 AM CDT Vinicio Quintanilla MD LAB - HEMATOLOGY ORD ERABLES [facility] [address] [place] [address] * (ABNORMAL) COMPREHENSIVE METABOLIC PANEL (09/18/2021 5:31 AM CDT) [facility] Glucose 109(H) 70 - 105 mg/dL 09/18/2021 9:16 AM [facility] Sodium 146(H) 136 - 145 mmol/L 09/18/2021 9:16 AM [facility] Potassium 4.6 3.5 - 5.1 mmol/L 09/18/2021 9:16 AM [facility] Chloride 104 98 - 107 mmol/L 09/18/2021 9:16 AM [facility] CO2 29 23 - 31 mmol/L 09/18/2021 9:16 AM [facility] Calcium 10.9(H) 8.4 - 10.4 mg/dL 09/18/2021 9:16 AM [facility] Anion Gap 13 8 - 18 mmol/L 09/18/2021 9:16 AM [facility] BUN 33(H) 8.9 - 20.6 mg/dL 09/18/2021 9:16 AM [facility] Creatinine 1.23 0.72 - 1.25 mg/dL 09/18/2021 9:16 AM [facility] Alkaline Phosphatase 184(H) 40 - 150 U/L 09/18/2021 9:16 AM [facility] ALT 36 0 - 61 U/L 09/18/2021 9:16 AM T [facility] AST 17 5 - 34 U/L 09/18/2021 9:16 AM [facility] Protein Total 8.6(H) 6.4 - 8.3 gm/dL 09/18/2021 9:16 AM [facility] Albumin 4.1 3.5 - 5.2 gm/dL 09/18/2021 9:16 AM [facility] Bilirubin Total 0.3 0.2 - 1.2 mg/dL 09/18/2021 9:16 AM [facility] eGFR by CKD-EPI 79(L) >=90 mL/min/1.7 3 m2 09/18/2021 9:16 AM [facility] Blood BLOOD SPECIMEN / Unknown Venipuncture / Unknown 09/18/2021 5:31 AM CDT 09/18/2021 8:55 AM CDT [facility] - 09/18/2021 9:16 AM T eGFR result was calculated using the updated CKD-EPI Creatinine Equations (2020). Prior to go live 2021 the eGFR was calculated using the MDRD calculation. Please note Reference Range change. Vinicio Quintanilla MD LAB - CHEMISTRY JOSE ENRIQUE VELA [facility] Organization Address City/State/ZIP Co de Phone Number [facility] [address] [place], [place] [phone] documented in this encounter Visit Diagnoses Not on filedocumented in this encounter Care Teams [employer]or Relationship Specialty Start Date End Date Pepe Martel MD [address] [place] [id number] PCP - General 08/14/16 documented as of this encounter
--- OUTSIDE RECORDS SUMMARY | 2024-05-23 03:19 | XMS_ITS | Encounter Summary ---
Author Organization [facility] Address [address] [place] [address] Care Team Providers Care Child Protective Services Specialist Name Role Phone Pepe Martel MD Primary Care Provider [phone] Encounter Details Date Type Department Care Team (Late st Contact Info) Description 08/28/2021 Lab Requisition [facility] [address] [place] [address] [place] [address] [place] [address] Social History Tobacco Use Types Packs/Day Years [...] Diagnosis Comments CBC W AUTO DIFFERENTIAL STAT 08/28/2021 3:00 AM CDT COMPREHENSIVE METABOLIC PANEL STAT 08/28/2021 3:00 AM CDT documented in this encounter Results * (ABNORMAL) CBC WITH DIFFERENTIAL (08/28/2021 3:00 AM CDT) WBC 10.2 4.4 - 10.7 x10E9/L 08/28/2021 10:44 AM CDT [facility] WBC Corrected 08/28/2021 10:44 AM CDT [facility] RBC 4.55 3.80 - 5.40 x10E12/L 08/28/2021 10:44 AM CDT [facility] Hemoglobin 11.9(L) 12.0 - 17.6 gm/dL 08/28/2021 10:44 AM CDT [facility] Hematocrit 39.0 35.2 - 51.7 % 08/28/2021 10:44 AM CDT [facility] MCV 85.7 80.7 - 98.3 fl 08/28/2021 10:44 AM CDT [facility] MCH 26.2(L) 26.7 - 34.0 pg 08/28/2021 10:44 AM CDT [facility] MCHC 30.5(L) 30.8 - 35.9 gm/dL 08/28/2021 10:44 AM CDT [facility] Platelet Count 462(H) 153 - 416 x10E9/L 08/28/2021 10:44 AM CDT [facility] RDW-CV 14.7 12.1 - 14.9 % 08/28/2021 10:44 AM CDT [facility] MPV 10.4 9.4 - 12.9 fl 08/28/2021 10:44 AM CDT [facility] Neutrophils % 65.6 44.0 - 73.0 % 08/28/2021 10:44 AM CDT [facility] Lymphocytes % 22.2 20.0 - 43.0 % 08/28/2021 10:44 AM CDT [facility] Monocytes % 9.3 5.0 - 13.0 % 08/28/2021 10:44 AM CDT [facility] Eosinophils % 2.3 0.0 - 6.0 % 08/28/2021 10:44 AM CDT [facility] Basophils % 0.3 0.0 - 2.0 % 08/28/2021 10:44 AM CDT [facility] Immature Granulocytes 0.3 0 - 1 % 08/28/2021 10:44 AM CDT [facility] Neutrophil Absolute 6.67 2.01 - 7.14 x10E9/L 08/28/2021 10:44 AM CDT [facility] Lymphocytes Absolute 2.26 1.07 - 3.94 x10E9/L 08/28/2021 10:44 AM CDT [facility] Monocytes Absolute 0.94 0.26 - 1.07 x10E9/L 08/28/2021 10:44 AM CDT [facility] Eosinophils Absolute 0.23 0 - 0.47 x10E9/L 08/28/2021 10:44 AM CDT [facility] Basophils Absolute 0.03 0 - 0.08 x10E9/L 08/28/2021 10:44 AM CDT [facility] Immature Granulocytes Absolute 0.03 0.00 - 0.06 x10E9/L 08/28/2021 10:44 AM CDT [facility] nRBC Auto 0 /100 WBC 08/28/2021 10:44 AM T [facility] Blood BLOOD SPECIMEN / Unknown Venipuncture / Unknown 08/28/2021 3:00 AM CDT 08/28/2021 10:29 AM CDT Vinicio Quintanilla MD LAB - HEMATOLOGY ORD ERABLES [facility] [address] [place] [address] * (ABNORMAL) COMPREHENSIVE METABOLIC PANEL (08/28/2021 3:00 AM CDT) [facility] Glucose 104 70 - 105 mg/dL 08/28/2021 11:05 AM CDT [facility] Sodium 139 136 - 145 mmol/L 08/28/2021 11:05 AM [facility] Potassium 5.0 3.5 - 5.1 mmol/L 08/28/2021 11:05 AM [facility] Chloride 100 98 - 107 mmol/L 08/28/2021 11:05 AM [facility] CO2 24 23 - 31 mmol/L 08/28/2021 11:05 AM [facility] Calcium 10.4 8.4 - 10.4 mg/dL 08/28/2021 11:05 AM [facility] Anion Gap 15 8 - 18 mmol/L 08/28/2021 11:05 AM [facility] BUN 29(H) 8.9 - 20.6 mg/dL 08/28/2021 11:05 AM [facility] Creatinine 0.99 0.72 - 1.25 mg/dL 08/28/2021 11:05 AM [facility] Alkaline Phosphatase 176(H) 40 - 150 U/L 08/28/2021 11:05 AM [facility] ALT 28 0 - 61 U/L 08/28/2021 11:05 AM [facility] AST 18 5 - 34 U/L 08/28/2021 11:05 AM [facility] Protein Total 8.6(H) 6.4 - 8.3 gm/dL 08/28/2021 11:05 AM [facility] Albumin 4.0 3.5 - 5.2 gm/dL 08/28/2021 11:05 AM [facility] Bilirubin Total 0.3 0.2 - 1.2 mg/dL 08/28/2021 11:05 AM [facility] eGFR by CKD-EPI >90 >=90 mL/min/1.7 3 m2 08/28/2021 11:05 AM [facility] Blood BLOOD SPECIMEN / Unknown Venipuncture / Unknown 08/28/2021 3:00 AM CDT 08/28/2021 10:29 AM T [facility] - 08/28/2021 11:05 AM T eGFR result was calculated using the updated CKD-EPI Creatinine Equations (2020). Prior to go live 2021 the eGFR was calculated using the MDRD calculation. Please note Reference Range change. Vinicio Quintanilla MD LAB - CHEMISTRY JOSE ENRIQUE VELA [facility] Organization Address City/State/ZIP Co de Phone Number [facility] [address] [place] [address] documented in this encounter Visit Diagnoses Not on filedocumented in this encounter Care Teams Child Protective Services Specialist Relationship Specialty Start Date End Date Pepe Martel MD [address] [place] [id number] PCP - General 08/14/16 documented as of this encounter
--- OUTSIDE RECORDS SUMMARY | 2024-05-23 03:19 | XMS_ITS | Encounter Summary ---
Author Organization [facility] Address [address] [place] [address] Care Team Providers Care Cake Washer Name Role Phone Pepe Martel MD Primary Care Provider [phone] Encounter Details Date Type Department Care Team (Late st Contact Info) Description 08/21/2021 Lab Requisition [facility] [address] [place] [address] [place] [address] [place] [address] Social History Tobacco Use Types Packs/Day Years [...] Diagnosis Comments CBC W AUTO DIFFERENTIAL STAT 08/21/2021 4:04 AM CDT COMPREHENSIVE METABOLIC PANEL STAT 08/21/2021 4:04 AM CDT documented in this encounter Results * (ABNORMAL) CBC WITH DIFFERENTIAL (08/21/2021 4:04 AM CDT) WBC 9.4 4.4 - 10.7 x10E9/L 08/21/2021 9:10 AM CDT [facility] WBC Corrected 08/21/2021 9:10 AM CDT [facility] RBC 4.21 3.80 - 5.40 x10E12/L 08/21/2021 9:10 AM CDT [facility] Hemoglobin 11.3(L) 12.0 - 17.6 gm/dL 08/21/2021 9:10 AM CDT [facility] Hematocrit 36.2 35.2 - 51.7 % 08/21/2021 9:10 AM CDT [facility] MCV 86.0 80.7 - 98.3 fl 08/21/2021 9:10 AM CDT [facility] MCH 26.8 26.7 - 34.0 pg 08/21/2021 9:10 AM CDT [facility] MCHC 31.2 30.8 - 35.9 gm/dL 08/21/2021 9:10 AM CDT [facility] Platelet Count 408 153 - 416 x10E9/L 08/21/2021 9:10 AM CDT [facility] RDW-CV 15.1(H) 12.1 - 14.9 % 08/21/2021 9:10 AM CDT [facility] MPV 10.4 9.4 - 12.9 fl 08/21/2021 9:10 AM CDT [facility] Neutrophils % 59.1 44.0 - 73.0 % 08/21/2021 9:10 AM CDT [facility] Lymphocytes % 26.2 20.0 - 43.0 % 08/21/2021 9:10 AM CDT [facility] Monocytes % 11.0 5.0 - 13.0 % 08/21/2021 9:10 AM CDT [facility] Eosinophils % 3.1 0.0 - 6.0 % 08/21/2021 9:10 AM CDT [facility] Basophils % 0.4 0.0 - 2.0 % 08/21/2021 9:10 AM CDT [facility] Immature Granulocytes 0.2 0 - 1 % 08/21/2021 9:10 AM CDT [facility] Neutrophil Absolute 5.52 2.01 - 7.14 x10E9/L 08/21/2021 9:10 AM CDT [facility] Lymphocytes Absolute 2.45 1.07 - 3.94 x10E9/L 08/21/2021 9:10 AM CDT [facility] Monocytes Absolute 1.03 0.26 - 1.07 x10E9/L 08/21/2021 9:10 AM CDT [facility] Eosinophils Absolute 0.29 0 - 0.47 x10E9/L 08/21/2021 9:10 AM CDT [facility] Basophils Absolute 0.04 0 - 0.08 x10E9/L 08/21/2021 9:10 AM CDT [facility] Immature Granulocytes Absolute 0.02 0.00 - 0.06 x10E9/L 08/21/2021 9:10 AM CDT [facility] nRBC Auto 0 /100 WBC 08/21/2021 9:10 AM CDT [facility] Blood BLOOD SPECIMEN / Unknown Venipuncture / Unknown 08/21/2021 4:04 AM CDT 08/21/2021 8:57 AM CDT Vinicio Quintanilla MD LAB - HEMATOLOGY ORD ERABLES [facility] [address] [place] [address] * (ABNORMAL) COMPREHENSIVE METABOLIC PANEL (08/21/2021 4:04 AM CDT) [facility] Glucose 101 70 - 105 mg/dL 08/21/2021 9:36 AM CDT [facility] Sodium 138 136 - 145 mmol/L 08/21/2021 9:36 AM CDT [facility] Potassium 4.7 3.5 - 5.1 mmol/L 08/21/2021 9:36 AM CDT [facility] Chloride 98 98 - 107 mmol/L 08/21/2021 9:36 AM CDT [facility] CO2 25 23 - 31 mmol/L 08/21/2021 9:36 AM CDT [facility] Calcium 10.4 8.4 - 10.4 mg/dL 08/21/2021 9:36 AM CDT [facility] Anion Gap 15 8 - 18 mmol/L 08/21/2021 9:36 AM CDT [facility] BUN 26(H) 8.9 - 20.6 mg/dL 08/21/2021 9:36 AM CDT [facility] Creatinine 0.88 0.72 - 1.25 mg/dL 08/21/2021 9:36 AM CDT [facility] Alkaline Phosphatase 160(H) 40 - 150 U/L 08/21/2021 9:36 AM CDT [facility] ALT 28 0 - 61 U/L 08/21/2021 9:36 AM CDT [facility] AST 19 5 - 34 U/L 08/21/2021 9:36 AM CDT [facility] Protein Total 8.5(H) 6.4 - 8.3 gm/dL 08/21/2021 9:36 AM CDT [facility] Albumin 4.0 3.5 - 5.2 gm/dL 08/21/2021 9:36 AM T [facility] Bilirubin Total 0.2 0.2 - 1.2 mg/dL 08/21/2021 9:36 AM T [facility] eGFR by CKD-EPI >90 >=90 mL/min/1.7 3 m2 08/21/2021 9:36 AM T [facility] Blood BLOOD SPECIMEN / Unknown Venipuncture / Unknown 08/21/2021 4:04 AM CDT 08/21/2021 8:57 AM CDT [facility] - 08/21/2021 9:36 AM CDT eGFR result was calculated using the updated CKD-EPI Creatinine Equations (2020). Prior to go live 2021 the eGFR was calculated using the MDRD calculation. Please note Reference Range change. Vinicio Quintanilla MD LAB - CHEMISTRY JOSE ENRIQUE VELA [facility] Organization Address City/State/ZIP Co de Phone Number [facility] [address] [place], [place] [id number] documented in this encounter Visit Diagnoses Not on filedocumented in this encounter Care Teams Cake Washer Relationship Specialty Start Date End Date Pepe Martel MD [address] [place] [id number] PCP - General 08/14/16 documented as of this encounter
--- OUTSIDE RECORDS SUMMARY | 2024-05-23 03:19 | XMS_ITS | Encounter Summary ---
Author Organization [facility] Address [address] [place] [address] Care Team Providers Care Product Info Specialist Name Role Phone Pepe Martel MD Primary Care Provider [phone] Encounter Details Date Type Department Care Team (Late st Contact Info) Description 08/07/2021 Lab Requisition [facility] [address] [place] [address] [place] [address] [place] [address] Social History Tobacco Use Types Packs/Day Years [...] Diagnosis Comments CBC W AUTO DIFFERENTIAL STAT 08/07/2021 5:33 AM CDT COMPREHENSIVE METABOLIC PANEL STAT 08/07/2021 5:33 AM CDT documented in this encounter Results * (ABNORMAL) COMPREHENSIVE METABOLIC PANEL (08/07/2021 5:33 AM CDT) Glucose 120(H) 70 - 105 mg/dL 08/07/2021 10:27 AM CDT [facility] Sodium 144 136 - 145 mmol/L 08/07/2021 10:27 AM CDT [facility] Potassium 4.5 3.5 - 5.1 mmol/L 08/07/2021 10:27 AM CDT [facility] Chloride 109(H) 98 - 107 mmol/L 08/07/2021 10:27 AM CDT [facility] CO2 22(L) 23 - 31 mmol/L 08/07/2021 10:27 AM CDT [facility] Calcium 9.6 8.4 - 10.4 mg/dL 08/07/2021 10:27 AM CDT [facility] Anion Gap 13 8 - 18 mmol/L 08/07/2021 10:27 AM CDT [facility] BUN 25(H) 8.9 - 20.6 mg/dL 08/07/2021 10:27 AM CDT [facility] Creatinine 0.89 0.72 - 1.25 mg/dL 08/07/2021 10:27 AM CDT [facility] Alkaline Phosphatase 110 40 - 150 U/L 08/07/2021 10:27 AM CDT [facility] ALT 19 0 - 61 U/L 08/07/2021 10:27 AM CDT [facility] AST 13 5 - 34 U/L 08/07/2021 10:27 AM CDT [facility] Protein Total 6.9 6.4 - 8.3 gm/dL 08/07/2021 10:27 AM CDT [facility] Albumin 3.4(L) 3.5 - 5.2 gm/dL 08/07/2021 10:27 AM CDT [facility] Bilirubin Total 0.3 0.2 - 1.2 mg/dL 08/07/2021 10:27 AM CDT [facility] eGFR by CKD-EPI >90 >=90 mL/min/1.7 3 m2 08/07/2021 10:27 AM CDT [facility] Blood BLOOD SPECIMEN / Unknown Venipuncture / Unknown 08/07/2021 5:33 AM CDT 08/07/2021 9:34 AM CDT Narrative [facility] - 08/07/2021 10:27 AM CDT eGFR result was calculated using the updated CKD-EPI Creatinine Equations (2020). Prior to go live 2021 the eGFR was calculated using the MDRD calculation. Please note Reference Range change. Vinicio Quintanilla MD [facility] Organization Address City/State/ZIP Co de Phone Number [facility] [address] [place], [place] [id number] * (ABNORMAL) CBC WITH DIFFERENTIAL (08/07/2021 5:33 AM CDT) WBC 9.0 4.4 - 10.7 x10E9/L 08/07/2021 9:48 AM CDT [facility] WBC Corrected 08/07/2021 9:48 AM CDT [facility] RBC 3.78(L) 3.80 - 5.40 x10E12/L 08/07/2021 9:48 AM CDT [facility] Hemoglobin 9.9(L) 12.0 - 17.6 gm/dL 08/07/2021 9:48 AM CDT [facility] Hematocrit 33.0(L) 35.2 - 51.7 % 08/07/2021 9:48 AM CDT [facility] MCV 87.3 80.7 - 98.3 fl 08/07/2021 9:48 AM CDT [facility] MCH 26.2(L) 26.7 - 34.0 pg 08/07/2021 9:48 AM CDT [facility] MCHC 30.0(L) 30.8 - 35.9 gm/dL 08/07/2021 9:48 AM [facility] Platelet Count 439(H) 153 - 416 x10E9/L 08/07/2021 9:48 AM [facility] RDW-CV 16.0(H) 12.1 - 14.9 % 08/07/2021 9:48 AM [facility] MPV 10.6 9.4 - 12.9 fl 08/07/2021 9:48 AM [facility] Neutrophils % 68.5 44.0 - 73.0 % 08/07/2021 9:48 AM [facility] Lymphocytes % 16.3(L) 20.0 - 43.0 % 08/07/2021 9:48 AM [facility] Monocytes % 10.0 5.0 - 13.0 % 08/07/2021 9:48 AM [facility] Eosinophils % 4.4 0.0 - 6.0 % 08/07/2021 9:48 AM [facility] Basophils % 0.4 0.0 - 2.0 % 08/07/2021 9:48 AM [facility] Immature Granulocytes 0.4 0 - 1 % 08/07/2021 9:48 AM [facility] Neutrophil Absolute 6.19 2.01 - 7.14 x10E9/L 08/07/2021 9:48 AM [facility] Lymphocytes Absolute 1.47 1.07 - 3.94 x10E9/L 08/07/2021 9:48 AM [facility] Monocytes Absolute 0.90 0.26 - 1.07 x10E9/L 08/07/2021 9:48 AM [facility] Eosinophils Absolute 0.40 0 - 0.47 x10E9/L 08/07/2021 9:48 AM [facility] Basophils Absolute 0.04 0 - 0.08 x10E9/L 08/07/2021 9:48 AM [facility] Immature Granulocytes Absolute 0.04 0.00 - 0.06 x10E9/L 08/07/2021 9:48 AM [facility] nRBC Auto 0 /100 WBC 08/07/2021 9:48 AM [facility] Blood BLOOD SPECIMEN / Unknown Venipuncture / Unknown 08/07/2021 5:33 AM CDT 08/07/2021 9:34 AM CDT Vinicio Quintanilla MD LAB - HEMATOLOGY ORD ERABLES Performing Organization Address City/State/[facility] Co de Phone Number [facility] [address] [place] [address] documented in this encounter Visit Diagnoses Not on filedocumented in this encounter Care Teams Product Info Specialist Relationship Specialty Start Date End Date Pepe Martel MD [address] [facility] [address] [place] [address] PCP - General 08/14/16 documented as of this encounter
--- OUTSIDE RECORDS SUMMARY | 2024-05-23 03:19 | XMS_ITS | Encounter Summary ---
Author Organization [facility] Address [address] [place] [address] Care Team Providers Care Sound Editor Name Role Phone Pepe Martel MD Primary Care Provider [phone] Encounter Details Date Type Department Care Team (Late st Contact Info) Description 08/04/2021 Lab Requisition [facility] [address] [place] [address] [place] [address] [place] [address] Social History Tobacco Use Types Packs/Day Years [...] Diagnosis Comments CBC W AUTO DIFFERENTIAL STAT 08/04/2021 5:17 AM CDT COMPREHENSIVE METABOLIC PANEL STAT 08/04/2021 5:17 AM CDT VANCOMYCIN LEVEL TROUGH STAT 08/04/2021 5:17 AM CDT documented in this encounter Results * (ABNORMAL) CBC WITH DIFFERENTIAL (08/04/2021 5:17 AM CDT) WBC 8.8 4.4 - 10.7 x10E9/L 08/04/2021 9:06 AM CDT [facility] WBC Corrected 08/04/2021 9:06 AM CDT [facility] RBC 3.04(L) 3.80 - 5.40 x10E12/L 08/04/2021 9:06 AM CDT [facility] Hemoglobin 8.0(L) 12.0 - 17.6 gm/dL 08/04/2021 9:06 AM CDT [facility] Hematocrit 27.3(L) 35.2 - 51.7 % 08/04/2021 9:06 AM CDT [facility] MCV 89.8 80.7 - 98.3 fl 08/04/2021 9:06 AM CDT [facility] MCH 26.3(L) 26.7 - 34.0 pg 08/04/2021 9:06 AM CDT [facility] MCHC 29.3(L) 30.8 - 35.9 gm/dL 08/04/2021 9:06 AM CDT [facility] Platelet Count 482(H) 153 - 416 x10E9/L 08/04/2021 9:06 AM CDT [facility] RDW-CV 15.3(H) 12.1 - 14.9 % 08/04/2021 9:06 AM CDT [facility] MPV 10.6 9.4 - 12.9 fl 08/04/2021 9:06 AM CDT [facility] Neutrophils % 66.9 44.0 - 73.0 % 08/04/2021 9:06 AM CDT [facility] Lymphocytes % 18.5(L) 20.0 - 43.0 % 08/04/2021 9:06 AM CDT [facility] Monocytes % 6.9 5.0 - 13.0 % 08/04/2021 9:06 AM CDT [facility] Eosinophils % 6.9(H) 0.0 - 6.0 % 08/04/2021 9:06 AM CDT [facility] Basophils % 0.5 0.0 - 2.0 % 08/04/2021 9:06 AM CDT [facility] Immature Granulocytes 0.3 0 - 1 % 08/04/2021 9:06 AM CDT [facility] Neutrophil Absolute 5.90 2.01 - 7.14 x10E9/L 08/04/2021 9:06 AM CDT [facility] Lymphocytes Absolute 1.63 1.07 - 3.94 x10E9/L 08/04/2021 9:06 AM CDT [facility] Monocytes Absolute 0.61 0.26 - 1.07 x10E9/L 08/04/2021 9:06 AM T [facility] Eosinophils Absolute 0.61(H) 0 - 0.47 x10E9/L 08/04/2021 9:06 AM T [facility] Basophils Absolute 0.04 0 - 0.08 x10E9/L 08/04/2021 9:06 AM T [facility] Immature Granulocytes Absolute 0.03 0.00 - 0.06 x10E9/L 08/04/2021 9:06 AM T [facility] nRBC Auto 0 /100 WBC 08/04/2021 9:06 AM T [facility] Blood BLOOD SPECIMEN / Unknown Venipuncture / Unknown 08/04/2021 5:17 AM CDT 08/04/2021 8:45 AM CDT Vinicio Quintanilla MD LAB - HEMATOLOGY ORD ERABLES [facility] [address] [place] [address] * VANCOMYCIN LEVEL TROUGH (08/04/2021 5:17 AM CDT) Vancomycin Trough 18.6 10.0 - 20.0 ug/mL 08/04/2021 9:28 AM [facility] Blood BLOOD SPECIMEN / Unknown Venipuncture / Unknown 08/04/2021 5:17 AM CDT 08/04/2021 8:45 AM CDT Vinicio Quintanilla MD LAB - CHEMISTRY JOSE ENRIQUE VELA [facility] Organization Address City/State/ZIP Co de Phone Number [facility] [address] [place] [address] * (ABNORMAL) COMPREHENSIVE METABOLIC PANEL (08/04/2021 5:17 AM CDT) Glucose 123(H) 70 - 105 mg/dL 08/04[facility]2021 [facility] Sodium 148(H) 136 - 145 mmol/L 08/04/2021 9:37 AM [facility] Potassium 4.7 3.5 - 5.1 mmol/L 08/04/2021 9:37 AM [facility] Chloride 111(H) 98 - 107 mmol/L 08/04/2021 9:37 AM CDT [facility] CO2 23 23 - 31 mmol/L 08/04/2021 9:37 AM CDT [facility] Calcium 9.7 8.4 - 10.4 mg/dL 08/04/2021 9:37 AM [facility] Anion Gap 14 8 - 18 mmol/L 08/04/2021 9:37 [facility] BUN 24(H) 8.9 - 20.6 mg/dL 08/04/2021 9:37 AM T [facility] Creatinine 0.90 0.72 - 1.25 mg/dL 08/04/2021 9:37 [facility] Alkaline Phosphatase 119 40 - 150 U/L 08/04/2021 9:37 AM CDT [facility] ALT 18 0 - 61 U/L 08/04/2021 9:37 AM CDT [facility] AST 14 5 - 34 U/L 08/04/2021 9:37 AM CDT [facility] Protein Total 7.1 6.4 - 8.3 gm/dL 08/04/2021 9:37 AM CDT [facility] Albumin 3.3(L) 3.5 - 5.2 gm/dL 08/04/2021 9:37 AM CDT [facility] Bilirubin Total 0.3 0.2 - 1.2 mg/dL 08/04/2021 9:37 AM CDT [facility] eGFR by CKD-EPI >90 >=90 mL/min/1.7 3 m2 08/04/2021 9:37 AM CDT [facility] Blood BLOOD SPECIMEN / Unknown Venipuncture / Unknown 08/04/2021 5:17 AM CDT 08/04/2021 8:45 AM CDT Narrative [facility] - 08/04/2021 9:37 AM CDT eGFR result was calculated using the updated CKD-EPI Creatinine Equations (2020). Prior to go live 2021 the eGFR was calculated using the MDRD calculation. Please note Reference Range change. Vinicio Quintanilla MD LAB - CHEMISTRY JOSE ENRIQUE VELA [facility] Organization Address City/State/[facility] [place] Co de Phone Number [facility] [address], [place] [phone] documented in this encounter Visit Diagnoses Not on filedocumented in this encounter Care Teams Sound Editor Relationship Specialty Start Date End Date Pepe Martel MD [address] [place] [address] [address] [place] [address] PCP - General 08/14/16 documented as of this encounter
--- OUTSIDE RECORDS SUMMARY | 2024-05-23 03:19 | XMS_ITS | Encounter Summary ---
Author Organization [facility] Address [address] [place] [address] Care Team Providers Care Optical Instrument Assembly Supervisor Name Role Phone Pepe Martel MD Primary Care Provider [phone] Encounter Details Date Type Department Care Team (Late st Contact Info) Description 10/23/2021 Lab Requisition [facility] [address] [place] [address] [place] [address] [place] [address] Social History Tobacco Use Types Packs/Day Years [...] Diagnosis Comments CBC W AUTO DIFFERENTIAL STAT 10/23/2021 3:05 AM CDT COMPREHENSIVE METABOLIC PANEL STAT 10/23/2021 3:05 AM CDT documented in this encounter Results * (ABNORMAL) CBC WITH DIFFERENTIAL (10/23/2021 3:05 AM CDT) WBC 8.3 4.4 - 10.7 x10E9/L 10/23/2021 10:51 AM CDT [facility] WBC Corrected 10/23/2021 10:51 AM CDT [facility] RBC 4.59 3.80 - 5.40 x10E12/L 10/23/2021 10:51 AM CDT [facility] Hemoglobin 12.2 12.0 - 17.6 gm/dL 10/23/2021 10:51 AM CDT [facility] Hematocrit 40.4 35.2 - 51.7 % 10/23/2021 10:51 AM CDT [facility] MCV 88.0 80.7 - 98.3 fl 10/23/2021 10:51 AM CDT [facility] MCH 26.6(L) 26.7 - 34.0 pg 10/23/2021 10:51 AM CDT [facility] MCHC 30.2(L) 30.8 - 35.9 gm/dL 10/23/2021 10:51 AM CDT [facility] Platelet Count 400 153 - 416 x10E9/L 10/23/2021 10:51 AM CDT [facility] RDW-CV 13.8 12.1 - 14.9 % 10/23/2021 10:51 AM CDT [facility] MPV 10.5 9.4 - 12.9 fl 10/23/2021 10:51 AM CDT [facility] Neutrophils % 62.2 44.0 - 73.0 % 10/23/2021 10:51 AM CDT [facility] Lymphocytes % 22.7 20.0 - 43.0 % 10/23/2021 10:51 AM CDT [facility] Monocytes % 11.2 5.0 - 13.0 % 10/23/2021 10:51 AM CDT [facility] Eosinophils % 3.0 0.0 - 6.0 % 10/23/2021 10:51 AM CDT [facility] Basophils % 0.5 0.0 - 2.0 % 10/23/2021 10:51 AM CDT [facility] Immature Granulocytes 0.4 0 - 1 % 10/23/2021 10:51 AM CDT [facility] Neutrophil Absolute 5.14 2.01 - 7.14 x10E9/L 10/23/2021 10:51 AM CDT [facility] Lymphocytes Absolute 1.87 1.07 - 3.94 x10E9/L 10/23/2021 10:51 AM CDT [facility] Monocytes Absolute 0.92 0.26 - 1.07 x10E9/L 10/23/2021 10:51 AM CDT [facility] Eosinophils Absolute 0.25 0 - 0.47 x10E9/L 10/23/2021 10:51 AM CDT [facility] Basophils Absolute 0.04 0 - 0.08 x10E9/L 10/23/2021 10:51 AM CDT [facility] Immature Granulocytes Absolute 0.03 0.00 - 0.06 x10E9/L 10/23/2021 10:51 AM CDT [facility] nRBC Auto 0 /100 WBC 10/23/2021 10:51 AM CDT [facility] Blood BLOOD SPECIMEN / Unknown Venipuncture / Unknown 10/23/2021 3:05 AM CDT 10/23/2021 9:43 AM CDT Vinicio Quintanilla MD LAB - HEMATOLOGY ORD ERABLES [facility] [address] [place] [address] * (ABNORMAL) COMPREHENSIVE METABOLIC PANEL (10/23/2021 3:05 AM CDT) [facility] Glucose 105 70 - 105 mg/dL 10/23/2021 11:15 AM CDT [facility] Sodium 145 136 - 145 mmol/L 10/23/2021 11:[address] [facility] Potassium 4.6 3.5 - 5.1 mmol/L 10/23/2021 11:[address] [facility] Chloride 106 98 - 107 mmol/L 10/23/2021 11:[address] [facility] CO2 26 23 - 31 mmol/L 10/23/2021 11:[address] [facility] Calcium 10.8(H) 8.4 - 10.4 mg/dL 10/23/2021 11:[address] [facility] Anion Gap 13 8 - 18 mmol/L 10/23/2021 11:[address] [facility] BUN 36(H) 8.9 - 20.6 mg/dL 10/23/2021 11:[address] [facility] Creatinine 1.17 0.72 - 1.25 mg/dL 10/23/2021 11:[address] [facility] Alkaline Phosphatase 151(H) 40 - 150 U/L 10/23/2021 11:[address] [facility] ALT 23 0 - 61 U/L 10/23/2021 11:[address] [facility] AST 13 5 - 34 U/L 10/23/2021 11:[address] [facility] Protein Total 7.8 6.4 - 8.3 gm/dL 10/23/2021 11:[address] [facility] Albumin 3.9 3.5 - 5.2 gm/dL 10/23/2021 11:[address] [facility] Bilirubin Total 0.2 0.2 - 1.2 mg/dL 10/23/2021 11:[address] [facility] eGFR by CKD-EPI 83(L) >=90 mL/min/1.7 3 m2 10/23/2021 11:[address] 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
--- OUTSIDE RECORDS SUMMARY | 2024-05-23 03:19 | XMS_ITS | Encounter Summary ---
Author Organization [facility] Address [address] [place] [address] Care Team Providers Care Digital Technician Name Role Phone Pepe Martel MD Primary Care Provider [phone] Encounter Details Date Type Department Care Team (Late st Contact Info) Description 09/29/2021 Lab Requisition [facility] [address] [place] [address] [place] [address] [place] [address] Social History Tobacco Use Types Packs/Day Years [...] Associated Diagnosis Comments CBC W AUTO DIFFERENTIAL Routine 09/29/2021 3:30 AM CDT COMPREHENSIVE METABOLIC PANEL STAT 09/29/2021 3:30 AM CDT documented in this encounter Results * (ABNORMAL) CBC WITH DIFFERENTIAL (09/29/2021 3:30 AM CDT) WBC 8.2 4.4 - 10.7 x10E9/L 09/29/2021 11:19 AM CDT [facility] WBC Corrected 09/29/2021 11:19 AM CDT [facility] RBC 4.25 3.80 - 5.40 x10E12/L 09/29/2021 11:19 AM CDT [facility] Hemoglobin 11.4(L) 12.0 - 17.6 gm/dL 09/29/2021 11:19 AM CDT [facility] Hematocrit 37.7 35.2 - 51.7 % 09/29/2021 11:19 AM CDT [facility] MCV 88.7 80.7 - 98.3 fl 09/29/2021 11:19 AM CDT [facility] MCH 26.8 26.7 - 34.0 pg 09/29/2021 11:19 AM CDT [facility] MCHC 30.2(L) 30.8 - 35.9 gm/dL 09/29/2021 11:19 AM CDT [facility] Platelet Count 454(H) 153 - 416 x10E9/L 09/29/2021 11:19 AM CDT [facility] RDW-CV 14.0 12.1 - 14.9 % 09/29/2021 11:19 AM CDT [facility] MPV 10.8 9.4 - 12.9 fl 09/29/2021 11:19 AM CDT [facility] Neutrophils % 59.2 44.0 - 73.0 % 09/29/2021 11:19 AM CDT [facility] Lymphocytes % 25.9 20.0 - 43.0 % 09/29/2021 11:19 AM CDT [facility] Monocytes % 10.8 5.0 - 13.0 % 09/29/2021 11:19 AM CDT [facility] Eosinophils % 3.3 0.0 - 6.0 % 09/29/2021 11:19 AM CDT [facility] Basophils % 0.4 0.0 - 2.0 % 09/29/2021 11:19 AM CDT [facility] Immature Granulocytes 0.4 0 - 1 % 09/29/2021 11:19 AM CDT [facility] Neutrophil Absolute 4.84 2.01 - 7.14 x10E9/L 09/29/2021 11:19 AM CDT [facility] Lymphocytes Absolute 2.11 1.07 - 3.94 x10E9/L 09/29/2021 11:19 AM CDT [facility] Monocytes Absolute 0.88 0.26 - 1.07 x10E9/L 09/29/2021 11:19 AM CDT [facility] Eosinophils Absolute 0.27 0 - 0.47 x10E9/L 09/29/2021 11:19 AM CDT [facility] Basophils Absolute 0.03 0 - 0.08 x10E9/L 09/29/2021 11:19 AM CDT [facility] Immature Granulocytes Absolute 0.03 0.00 - 0.06 x10E9/L 09/29/2021 11:19 AM CDT [facility] nRBC Auto 0 /100 WBC 09/29/2021 11:19 AM T [facility] Blood BLOOD SPECIMEN / Unknown Venipuncture / Unknown 09/29/2021 3:30 AM CDT 09/29/2021 10:16 AM CDT Vinicio Quintanilla MD LAB - HEMATOLOGY ORD ERABLES [facility] [address] [place] [address] * (ABNORMAL) COMPREHENSIVE METABOLIC PANEL (09/29/2021 3:30 AM CDT) [facility] Glucose 104 70 - 105 mg/dL 09/29/2021 11:43 AM CDT [facility] Sodium 142 136 - 145 mmol/L 09/29/2021 11:43 AM CDT [facility] Potassium 4.6 3.5 - 5.1 mmol/L 09/29/2021 11:43 AM CDT [facility] Chloride 104 98 - 107 mmol/L 09/29/2021 11:43 AM CDT [facility] CO2 26 23 - 31 mmol/L 09/29/2021 11:43 AM CDT [facility] Calcium 10.2 8.4 - 10.4 mg/dL 09/29/2021 11:43 AM CDT [facility] Anion Gap 12 8 - 18 mmol/L 09/29/2021 11:43 AM CDT [facility] BUN 32(H) 8.9 - 20.6 mg/dL 09/29/2021 11:43 AM CDT [facility] Creatinine 0.99 0.72 - 1.25 mg/dL 09/29/2021 11:43 AM [facility] Alkaline Phosphatase 151(H) 40 - 150 U/L 09/29/2021 11:43 AM CDT [facility] ALT 28 0 - 61 U/L 09/29/2021 11:43 AM CDT [facility] AST 16 5 - 34 U/L 09/29/2021 11:43 AM T [facility] Protein Total 7.5 6.4 - 8.3 gm/dL 09/29/2021 11:43 AM CDT [facility] Albumin 3.7 3.5 - 5.2 gm/dL 09/29/2021 11:43 AM T [facility] Bilirubin Total 0.2 0.2 - 1.2 mg/dL 09/29/2021 11:43 AM T [facility] eGFR by CKD-EPI >90 >=90 mL/min/1.7 3 m2 09/29/2021 11:43 AM T [facility] Blood BLOOD SPECIMEN / Unknown Venipuncture / Unknown 09/29/2021 3:30 AM CDT 09/29/2021 9:44 AM CDT Vinicio Quintanilla MD LAB - CHEMISTRY JOSE ENRIQUE VELA [facility] Organization Address City/State/ZIP Co de Phone Number [facility] [address] [place] [id number] documented in this encounter Visit Diagnoses Not on filedocumented in this encounter Care Teams Digital Technician Relationship Specialty Start Date End Date Pepe Martel MD [address] [place] [id number] PCP - General 08/14/16 documented as of this encounter
--- OUTSIDE RECORDS SUMMARY | 2024-05-23 03:19 | XMS_ITS | Encounter Summary ---
Author Organization [facility] Address [address] [facility] [place] [address] Care Team Providers Care Payroll Assistant Name Role Phone Pepe Martel MD Primary Care Provider [phone] Encounter Details Date Type Department Care Team (Late st Contact Info) Description 08/06/2021 Lab Requisition [facility] [address] [place] [address] Davon Laws MD [address] [place] [address] Social History Tobacco Use Types Packs/Day Years [...] Procedure Name Priority Date/Time Associated Diagnosis Comments DIFFERENTIAL MANUAL Routine 08/06/2021 5 :17 AM CDT CBC W AUTO DIFFERENTIAL STAT 08/06/2021 5:17 AM CDT documented in this encounter Results * (ABNORMAL) DIFFERENTIAL MANUAL (08/06/2021 5:17 AM CDT) WBC Auto 10.5 x10E9/L 08/06/2021 9:46 AM CDT [facility] WBC Corrected 08/06/2021 9:46 AM CDT [facility] nRBC 08/06/2021 9:46 AM CDT [facility] Neutrophil % Manual 74(H) 44 - 73 % 08/06/2021 9:46 AM CDT [facility] Lymphocytes % Manual 17(L) 20 - 43 % 08/06/2021 9:46 AM CDT [facility] Monocytes % Manual 3(L) 5 - 13 % 08/06/2021 9:46 AM CDT [facility] Eosinophils % Manual 5 0 - 6 % 08/06/2021 9:46 AM CDT [facility] Basophils % Manual 1 0 - 2 % 08/06/2021 9:46 AM CDT [facility] Neutrophils Absolute Manual 7.77(H) 2.01 - 7.14 x10E9/L 08/06/2021 9:46 AM CDT [facility] Lymphocytes Absolute Manual 1.79 1.07 - 3.94 x10E9/L 08/06/2021 9:46 AM CDT [facility] Monocytes Absolute Manual 0.32 0.26 - 1.07 x10E9/L 08/06/2021 9:46 AM CDT [facility] Eosinophils Absolute Manual 0.53(H) 0.00 - 0.47 x10E9/L 08/06/2021 9:46 AM CDT [facility] Basophils Absolute Manual 0.11(H) 0.00 - 0.08 x10E9/L 08/06/2021 9:46 AM CDT [facility] Cells Counted 100 # cells 08/06/2021 9:46 AM CDT [facility] Platelet Estimation Increased (A) Normal, Adequate platelets 08/06/2021 9:46 AM CDT [facility] WBC Morph Normal 08/06/2021 9:46 AM CDT [facility] Polychromasia Occasiona l(A) None 08/06/2021 9:46 AM CDT [facility] Fragmented RBCs Occasiona l(A) None 08/06/2021 9:46 AM CDT [facility] Clumped Platelets Occasiona l(A) None 08/06/2021 9:46 AM CDT [facility] Blood BLOOD SPECIMEN / Unknown Venipuncture / Unknown 08/06/2021 5:17 AM CDT 08/06/2021 8:40 AM CDT Davon Laws MD LAB - HEMATOLOGY ORD ERABLES Performing Organization Address City/State/[facility] Co de Phone Number [facility] [address] [place], [place] [id number] * (ABNORMAL) CBC WITH DIFFERENTIAL (08/06/2021 5:17 AM CDT) WBC 10.5 4.4 - 10.7 x10E9/L 08/06/2021 8:51 AM CDT [facility] WBC Corrected 08/06/2021 8:51 AM CDT [facility] RBC 3.89 3.80 - 5.40 x10E12/L 08/06/2021 8:51 AM CDT [facility] Hemoglobin 10.2(L) 12.0 - 17.6 gm/dL 08/06/2021 8:51 AM CDT [facility] Hematocrit 34.2(L) 35.2 - 51.7 % 08/06/2021 8:51 AM CDT [facility] MCV 87.9 80.7 - 98.3 fl 08/06/2021 8:51 AM CDT [facility] MCH 26.2(L) 26.7 - 34.0 pg 08/06/2021 8:51 AM CDT [facility] MCHC 29.8(L) 30.8 - 35.9 gm/dL 08/06/2021 8:51 AM CDT [facility] Platelet Count 470(H) 153 - 416 x10E9/L 08/06/2021 8:51 AM CDT [facility] RDW-CV 15.8(H) 12.1 - 14.9 % 08/06/2021 8:51 AM CDT [facility] MPV 10.6 9.4 - 12.9 fl 08/06/2021 8:51 AM CDT [facility] nRBC Auto 0 /100 WBC 08/06/2021 8:51 AM CDT [facility] Blood BLOOD SPECIMEN / Unknown Venipuncture / Unknown 08/06/2021 5:17 AM CDT 08/06/2021 8:40 AM CDT Davon Laws MD LAB - HEMATOLOGY ORD ERABLES Performing Organization Address City/State/[facility] Co de Phone Number [facility] [address] [place] [address] documented in this encounter Visit Diagnoses Not on filedocumented in this encounter Care Teams Payroll Assistant Relationship Specialty Start Date End Date Pepe Martel MD [address] [place] [address] [address] [place] [address] PCP - General 08/14/16 documented as of this encounter
--- OUTSIDE RECORDS SUMMARY | 2024-05-23 03:19 | XMS_ITS | Encounter Summary ---
Author Organization [facility] Address [address] [place] [address] Care Team Providers Care District Plant Engineer Name Role Phone Pepe Martel MD Primary Care Provider [phone] Encounter Details Date Type Department Care Team (Late st Contact Info) Description 08/11/2021 Lab Requisition [facility] [address] [place] [address] [place] [address] [place] [address] Social History Tobacco Use Types Packs/Day Years [...] Diagnosis Comments CBC W AUTO DIFFERENTIAL STAT 08/11/2021 5:24 AM CDT COMPREHENSIVE METABOLIC PANEL STAT 08/11/2021 5:24 AM CDT documented in this encounter Results * (ABNORMAL) CBC WITH DIFFERENTIAL (08/11/2021 5:24 AM CDT) WBC 8.6 4.4 - 10.7 x10E9/L 08/11/2021 9:36 AM CDT [facility] WBC Corrected 08/11/2021 9:36 AM CDT [facility] RBC 3.92 3.80 - 5.40 x10E12/L 08/11/2021 9:36 AM CDT [facility] Hemoglobin 10.3(L) 12.0 - 17.6 gm/dL 08/11/2021 9:36 AM CDT [facility] Hematocrit 33.7(L) 35.2 - 51.7 % 08/11/2021 9:36 AM CDT [facility] MCV 86.0 80.7 - 98.3 fl 08/11/2021 9:36 AM CDT [facility] MCH 26.3(L) 26.7 - 34.0 pg 08/11/2021 9:36 AM CDT [facility] MCHC 30.6(L) 30.8 - 35.9 gm/dL 08/11/2021 9:36 AM CDT [facility] Platelet Count 517(H) 153 - 416 x10E9/L 08/11/2021 9:36 AM CDT [facility] RDW-CV 15.9(H) 12.1 - 14.9 % 08/11/2021 9:36 AM CDT [facility] MPV 10.5 9.4 - 12.9 fl 08/11/2021 9:36 AM CDT [facility] Neutrophils % 64.3 44.0 - 73.0 % 08/11/2021 9:36 AM CDT [facility] Lymphocytes % 23.9 20.0 - 43.0 % 08/11/2021 9:36 AM CDT [facility] Monocytes % 8.6 5.0 - 13.0 % 08/11/2021 9:36 AM CDT [facility] Eosinophils % 2.4 0.0 - 6.0 % 08/11/2021 9:36 AM CDT [facility] Basophils % 0.3 0.0 - 2.0 % 08/11/2021 9:36 AM CDT [facility] Immature Granulocytes 0.5 0 - 1 % 08/11/2021 9:36 AM CDT [facility] Neutrophil Absolute 5.52 2.01 - 7.14 x10E9/L 08/11/2021 9:36 AM CDT [facility] Lymphocytes Absolute 2.05 1.07 - 3.94 x10E9/L 08/11/2021 9:36 AM CDT [facility] Monocytes Absolute 0.74 0.26 - 1.07 x10E9/L 08/11/2021 9:36 AM CDT [facility] Eosinophils Absolute 0.21 0 - 0.47 x10E9/L 08/11/2021 9:36 AM CDT [facility] Basophils Absolute 0.03 0 - 0.08 x10E9/L 08/11/2021 9:36 AM CDT [facility] Immature Granulocytes Absolute 0.04 0.00 - 0.06 x10E9/L 08/11/2021 9:36 AM CDT [facility] nRBC Auto 0 /100 WBC 08/11/2021 9:36 AM T [facility] Blood BLOOD SPECIMEN / Unknown Venipuncture / Unknown 08/11/2021 5:24 AM CDT 08/11/2021 9:25 AM CDT Vinicio Quintanilla MD LAB - HEMATOLOGY ORD ERABLES [facility] [address] [place] [address] * (ABNORMAL) COMPREHENSIVE METABOLIC PANEL (08/11/2021 5:24 AM CDT) [facility] Glucose 111(H) 70 - 105 mg/dL 08/11/2021 10:02 AM [facility] Sodium 141 136 - 145 mmol/L 08/11/2021 10:02 AM [facility] Potassium 5.0 3.5 - 5.1 mmol/L 08/11/2021 10:02 AM [facility] Chloride 104 98 - 107 mmol/L 08/11/2021 10:02 AM [facility] CO2 25 23 - 31 mmol/L 08/11/2021 10:02 AM [facility] Calcium 10.0 8.4 - 10.4 mg/dL 08/11/2021 10:02 AM [facility] Anion Gap 12 8 - 18 mmol/L 08/11/2021 10:02 AM [facility] BUN 28(H) 8.9 - 20.6 mg/dL 08/11/2021 10:02 AM [facility] Creatinine 0.77 0.72 - 1.25 mg/dL 08/11/2021 10:02 AM [facility] Alkaline Phosphatase 117 40 - 150 U/L 08/11/2021 10:02 AM [facility] ALT 16 0 - 61 U/L 08/11/2021 10:02 AM [facility] AST 11 5 - 34 U/L 08/11/2021 10:02 AM [facility] Protein Total 7.1 6.4 - 8.3 gm/dL 08/11/2021 10:02 AM [facility] Albumin 3.4(L) 3.5 - 5.2 gm/dL 08/11/2021 10:02 AM [facility] Bilirubin Total 0.3 0.2 - 1.2 mg/dL 08/11/2021 10:02 AM [facility] eGFR by CKD-EPI >90 >=90 mL/min/1.7 3 m2 08/11/2021 10:02 AM [facility] Blood BLOOD SPECIMEN / Unknown Venipuncture / Unknown 08/11/2021 5:24 AM CDT 08/11/2021 9:25 AM T [facility] - 08/11/2021 10:02 AM [facility] eGFR result was calculated using the updated CKD-EPI Creatinine Equations (2020). Prior to go live 2021 the eGFR was calculated using the MDRD calculation. Please note Reference Range change. Vinicio Quintanilla MD LAB - CHEMISTRY JOSE ENRIQUE VELA [facility] Organization Address City/State/ZIP Co de Phone Number [facility] [address] [place] [address] documented in this encounter Visit Diagnoses Not on filedocumented in this encounter Care Teams District Plant Engineer Relationship Specialty Start Date End Date Pepe Martel MD [address] [place] [phone] PCP - General 08/14/16 documented as of this encounter
--- OUTSIDE RECORDS SUMMARY | 2024-05-23 03:19 | XMS_ITS | Encounter Summary ---
Author Organization [facility] Address [address] [place] [address] Care Team Providers Care Material Handling Supervisor Name Role Phone Pepe Martel MD Primary Care Provider [phone] Encounter Details Date Type Department Care Team (Late st Contact Info) Description 08/18/2021 Lab Requisition [facility] [address] [place] [address] [place] [address] [place] [address] Social History Tobacco Use Types Packs/Day Years [...] Procedure Name Priority Date/Time Associated Diagnosis Comments SLIDE SCAN HEMATOLOGY Routine 08/18/2021 2:35 AM CDT CBC W AUTO DIFFERENTIAL STAT 08/18/2021 2:35 AM CDT COMPREHENSIVE METABOLIC PANEL STAT 08/18/2021 2:35 AM CDT documented in this encounter Results * (ABNORMAL) SLIDE SCAN HEMATOLOGY (08/18/2021 2:35 AM CDT) Pathologist [facility] Platelet Estimation Adequate platelets Normal, Adequate platelets 08/18/2021 10:16 AM CDT [facility] Clumped Platelets Occasional(A ) None 08/18/2021 10:16 AM CDT [facility] Blood BLOOD SPECIMEN / Unknown Venipuncture / Unknown 08/18/2021 2:35 AM CDT 08/18/2021 8:49 AM CDT Vinicio Quintanilla MD LAB - HEMATOLOGY ORD ERABLES Performing Organization Address City/State/[facility] Co de Phone Number [facility] [address] [place] [address] * (ABNORMAL) COMPREHENSIVE METABOLIC PANEL (08/18/2021 2:35 AM CDT) Pathologist [facility] Glucose 131(H) 70 - 105 mg/dL 08/18/2021 9:47 AM CDT [facility] Sodium 139 136 - 145 mmol/L 08/18/2021 9:47 AM CDT [facility] Potassium 4.7 3.5 - 5.1 mmol/L 08/18/2021 9:47 AM CDT [facility] Chloride 101 98 - 107 mmol/L 08/18/2021 9:47 AM CDT [facility] CO2 24 23 - 31 mmol/L 08/18/2021 9:47 AM CDT [facility] Calcium 9.9 8.4 - 10.4 mg/dL 08/18/2021 9:47 AM CDT [facility] Anion Gap 14 8 - 18 mmol/L 08/18/2021 9:47 AM CDT [facility] BUN 24(H) 8.9 - 20.6 mg/dL 08/18/2021 9:47 AM CDT [facility] Creatinine 0.78 0.72 - 1.25 mg/dL 08/18/2021 9:47 AM CDT [facility] Alkaline Phosphatase 134 40 - 150 U/L 08/18/2021 9:47 AM CDT [facility] ALT 20 0 - 61 U/L 08/18/2021 9:47 AM CDT [facility] AST 14 5 - 34 U/L 08/18/2021 9:47 AM CDT [facility] Protein Total 7.4 6.4 - 8.3 gm/dL 08/18/2021 9:47 AM CDT [facility] Albumin 3.5 3.5 - 5.2 gm/dL 08/18/2021 9:47 AM CDT [facility] Bilirubin Total 0.2 0.2 - 1.2 mg/dL 08/18/2021 9:47 AM CDT [facility] eGFR by CKD-EPI >90 >=90 mL/min/1.7 3 m2 08/18/2021 9:47 AM CDT [facility] Blood BLOOD SPECIMEN / Unknown Venipuncture / Unknown 08/18/2021 2:35 AM CDT 08/18/2021 8:49 AM CDT [facility] - 08/18/2021 9:47 AM CDT eGFR result was calculated using the updated CKD-EPI Creatinine Equations (2020). Prior to go live 2021 the eGFR was calculated using the MDRD calculation. Please note Reference Range change. Vinicio Quintanilla MD LAB - CHEMISTRY JOSE ENRIQUE VELA [facility] Organization Address City/State/ZIP Co de Phone Number [facility] [address] [place] [address] * (ABNORMAL) CBC WITH DIFFERENTIAL (08/18/2021 2:35 AM CDT) WBC 7.2 4.4 - 10.7 x10E9/L 08/18/2021 9:34 AM CDT [facility] WBC Corrected 08/18/2021 9:34 AM CDT [facility] RBC 3.95 3.80 - 5.40 x10E12/L 08/18/2021 9:34 AM CDT [facility] Hemoglobin 10.5(L) 12.0 - 17.6 gm/dL 08/18/2021 9:34 AM CDT [facility] Hematocrit 33.9(L) 35.2 - 51.7 % 08/18/2021 9:34 AM CDT [facility] MCV 85.8 80.7 - 98.3 fl 08/18/2021 9:34 AM CDT [facility] MCH 26.6(L) 26.7 - 34.0 pg 08/18/2021 9:34 AM CDT [facility] MCHC 31.0 30.8 - 35.9 gm/dL 08/18/2021 9:34 AM CDT [facility] Platelet Count 367 153 - 416 x10E9/L 08/18/2021 9:34 AM CDT [facility] RDW-CV 14.9 12.1 - 14.9 % 08/18/2021 9:34 AM CDT [facility] MPV 10.5 9.4 - 12.9 fl 08/18/2021 9:34 AM CDT [facility] Neutrophils % 65.2 44.0 - 73.0 % 08/18/2021 9:34 AM CDT [facility] Lymphocytes % 22.3 20.0 - 43.0 % 08/18/2021 9:34 AM CDT [facility] Monocytes % 8.5 5.0 - 13.0 % 08/18/2021 9:34 AM CDT [facility] Eosinophils % 3.3 0.0 - 6.0 % 08/18/2021 9:34 AM CDT [facility] Basophils % 0.4 0.0 - 2.0 % 08/18/2021 9:34 AM CDT [facility] Immature Granulocytes 0.3 0 - 1 % 08/18/2021 9:34 AM CDT [facility] Neutrophil Absolute 4.70 2.01 - 7.14 x10E9/L 08/18/2021 9:34 AM CDT [facility] Lymphocytes Absolute 1.61 1.07 - 3.94 x10E9/L 08/18/2021 9:34 AM CDT [facility] Monocytes Absolute 0.61 0.26 - 1.07 x10E9/L 08/18/2021 9:34 AM CDT [facility] Eosinophils Absolute 0.24 0 - 0.47 x10E9/L 08/18/2021 9:34 AM CDT [facility] Basophils Absolute 0.03 0 - 0.08 x10E9/L 08/18/2021 9:34 AM CDT [facility] Immature Granulocytes Absolute 0.02 0.00 - 0.06 x10E9/L 08/18/2021 9:34 AM CDT [facility] nRBC Auto 0 /100 WBC 08/18/2021 9:34 AM CDT [facility] Blood BLOOD SPECIMEN / Unknown Venipuncture / Unknown 08/18/2021 2:35 AM CDT 08/18/2021 8:49 AM CDT Vinicio Quintanilla MD LAB - HEMATOLOGY ORD ERABLES [facility] [address] [place], [place] [id number] documented in this encounter Visit Diagnoses Not on filedocumented in this encounter Care Teams Material Handling Supervisor Relationship Specialty Start Date End Date Pepe Martel MD [address] [place] [id number] PCP - General 08/14/16 documented as of this encounter
--- OUTSIDE RECORDS SUMMARY | 2024-05-23 03:19 | XMS_ITS | Encounter Summary ---
Author Organization [facility] Address [address] [place] [address] Care Team Providers Care Transport Corps Officer Name Role Phone Pepe Martel MD Primary Care Provider [phone] Encounter Details Date Type Department Care Team (Late st Contact Info) Description 09/04/2021 Lab Requisition [facility] [address] [place] [address] [place] [address] [place] [address] Social History Tobacco Use Types Packs/Day Years [...] Diagnosis Comments CBC W AUTO DIFFERENTIAL STAT 09/04/2021 3:10 AM CDT COMPREHENSIVE METABOLIC PANEL STAT 09/04/2021 3:10 AM CDT documented in this encounter Results * (ABNORMAL) COMPREHENSIVE METABOLIC PANEL (09/04/2021 3:10 AM CDT) Glucose 103 70 - 105 mg/dL 09/04/2021 10:10 AM CDT [facility] Sodium 141 136 - 145 mmol/L 09/04/2021 10:10 AM CDT [facility] Potassium 4.8 3.5 - 5.1 mmol/L 09/04/2021 10:10 AM CDT [facility] Chloride 102 98 - 107 mmol/L 09/04/2021 10:10 AM CDT [facility] CO2 23 23 - 31 mmol/L 09/04/2021 10:10 AM CDT [facility] Calcium 10.2 8.4 - 10.4 mg/dL 09/04/2021 10:10 AM CDT [facility] Anion Gap 16 8 - 18 mmol/L 09/04/2021 10:10 AM CDT [facility] BUN 31(H) 8.9 - 20.6 mg/dL 09/04/2021 10:10 AM CDT [facility] Creatinine 0.95 0.72 - 1.25 mg/dL 09/04/2021 10:10 AM CDT [facility] Alkaline Phosphatase 151(H) 40 - 150 U/L 09/04/2021 10:10 AM CDT [facility] ALT 30 0 - 61 U/L 09/04/2021 10:10 AM CDT [facility] AST 17 5 - 34 U/L 09/04/2021 10:10 AM CDT [facility] Protein Total 7.9 6.4 - 8.3 gm/dL 09/04/2021 10:10 AM CDT [facility] Albumin 3.7 3.5 - 5.2 gm/dL 09/04/2021 10:10 AM CDT [facility] Bilirubin Total 0.2 0.2 - 1.2 mg/dL 09/04/2021 10:10 AM CDT [facility] eGFR by CKD-EPI >90 >=90 mL/min/1.7 3 m2 09/04/2021 10:10 AM CDT [facility] Blood BLOOD SPECIMEN / Unknown Venipuncture / Unknown 09/04/2021 3:10 AM CDT 09/04/2021 9:40 AM CDT Narrative [facility] - 09/04/2021 10:10 AM CDT eGFR result was calculated using the updated CKD-EPI Creatinine Equations (2020). Prior to go live 2021 the eGFR was calculated using the MDRD calculation. Please note Reference Range change. Vinicio Quintanilla MD LAB - CHEMISTRY JOSE ENRIQUE [facility] Organization Address City/State/ZIP Co de Phone Number [facility] [address] [place] [address] * (ABNORMAL) CBC WITH DIFFERENTIAL (09/04/2021 3:10 AM CDT) WBC 7.7 4.4 - 10.7 x10E9/L 09/04/2021 9:53 AM CDT [facility] WBC Corrected 09/04/2021 9:53 AM CDT [facility] RBC 4.39 3.80 - 5.40 x10E12/L 09/04/2021 9:53 AM CDT [facility] Hemoglobin 11.6(L) 12.0 - 17.6 gm/dL 09/04/2021 9:53 AM CDT [facility] Hematocrit 37.8 35.2 - 51.7 % 09/04/2021 9:53 AM CDT [facility] MCV 86.1 80.7 - 98.3 fl 09/04/2021 9:53 AM CDT [facility] MCH 26.4(L) 26.7 - 34.0 pg 09/04/2021 9:53 AM CDT [facility] MCHC 30.7(L) 30.8 - 35.9 gm/dL 09/04/2021 9:53 AM CDT [facility] Platelet Count 512(H) 153 - 416 x10E9/L 09/04/2021 9:53 AM [facility] RDW-CV 14.4 12.1 - 14.9 % 09/04/2021 9:53 AM [facility] MPV 10.1 9.4 - 12.9 fl 09/04/2021 9:53 AM [facility] Neutrophils % 58.5 44.0 - 73.0 % 09/04/2021 9:53 AM [facility] Lymphocytes % 27.7 20.0 - 43.0 % 09/04/2021 9:53 AM [facility] Monocytes % 10.1 5.0 - 13.0 % 09/04/2021 9:53 AM [facility] Eosinophils % 2.9 0.0 - 6.0 % 09/04/2021 9:53 AM [facility] Basophils % 0.5 0.0 - 2.0 % 09/04/2021 9:53 AM [facility] Immature Granulocytes 0.3 0 - 1 % 09/04/2021 9:53 AM [facility] Neutrophil Absolute 4.48 2.01 - 7.14 x10E9/L 09/04/2021 9:53 AM [facility] Lymphocytes Absolute 2.12 1.07 - 3.94 x10E9/L 09/04/2021 9:53 AM [facility] Monocytes Absolute 0.77 0.26 - 1.07 x10E9/L 09/04/2021 9:53 AM [facility] Eosinophils Absolute 0.22 0 - 0.47 x10E9/L 09/04/2021 9:53 AM [facility] Basophils Absolute 0.04 0 - 0.08 x10E9/L 09/04/2021 9:53 AM [facility] Immature Granulocytes Absolute 0.02 0.00 - 0.06 x10E9/L 09/04/2021 9:53 AM [facility] nRBC Auto 0 /100 WBC 09/04/2021 9:53 AM [facility] Blood BLOOD SPECIMEN / Unknown Venipuncture / Unknown 09/04/2021 3:10 AM CDT 09/04/2021 9:40 AM CDT Vinicio Quintanilla MD LAB - HEMATOLOGY ORD ERABLES [facility] [address] [place] [address] documented in this encounter Visit Diagnoses Not on filedocumented in this encounter Care Teams Transport Corps Officer Relationship Specialty Start Date End Date Pepe Martel MD [address] [place] [address] [address] [place] [address] PCP - General 08/14/16 documented as of this encounter
--- OUTSIDE RECORDS SUMMARY | 2024-05-23 03:19 | XMS_ITS | Encounter Summary ---
Author Organization [facility] Address [address] [place] [address] Care Team Providers Care Economics Consultant Name Role Phone Pepe Martel MD Primary Care Provider [phone] Encounter Details Date Type Department Care Team (Late st Contact Info) Description 11/10/2021 Lab Requisition [facility] [address] [place] [address] [place] [address] [place] [address] Social History Tobacco Use Types Packs/Day Years [...] Diagnosis Comments CBC W AUTO DIFFERENTIAL STAT 11/10/2021 4:30 AM CDT COMPREHENSIVE METABOLIC PANEL STAT 11/10/2021 4:30 AM CDT documented in this encounter Results * (ABNORMAL) CBC WITH DIFFERENTIAL (11/10/2021 4:30 AM CDT) WBC 5.3 4.4 - 10.7 x10E9/L 11/10/2021 10:38 AM CDT [facility] WBC Corrected 11/10/2021 10:38 AM CDT [facility] RBC 4.21 3.80 - 5.40 x10E12/L 11/10/2021 10:38 AM CDT [facility] Hemoglobin 11.2(L) 12.0 - 17.6 gm/dL 11/10/2021 10:38 AM CDT [facility] Hematocrit 36.6 35.2 - 51.7 % 11/10/2021 10:38 AM CDT [facility] MCV 86.9 80.7 - 98.3 fl 11/10/2021 10:38 AM CDT [facility] MCH 26.6(L) 26.7 - 34.0 pg 11/10/2021 10:38 AM CDT [facility] MCHC 30.6(L) 30.8 - 35.9 gm/dL 11/10/2021 10:38 AM CDT [facility] Platelet Count 333 153 - 416 x10E9/L 11/10/2021 10:38 AM CDT [facility] RDW-CV 13.4 12.1 - 14.9 % 11/10/2021 10:38 AM CDT [facility] MPV 10.5 9.4 - 12.9 fl 11/10/2021 10:38 AM CDT [facility] Neutrophils % 54.2 44.0 - 73.0 % 11/10/2021 10:38 AM CDT [facility] Lymphocytes % 24.4 20.0 - 43.0 % 11/10/2021 10:38 AM CDT [facility] Monocytes % 16.1(H) 5.0 - 13.0 % 11/10/2021 10:38 AM CDT [facility] Eosinophils % 4.7 0.0 - 6.0 % 11/10/2021 10:38 AM CDT [facility] Basophils % 0.4 0.0 - 2.0 % 11/10/2021 10:38 AM CDT [facility] Immature Granulocytes 0.2 0 - 1 % 11/10/2021 10:38 AM CDT [facility] Neutrophil Absolute 2.86 2.01 - 7.14 x10E9/L 11/10/2021 10:38 AM CDT [facility] Lymphocytes Absolute 1.29 1.07 - 3.94 x10E9/L 11/10/2021 10:38 AM CDT [facility] Monocytes Absolute 0.85 0.26 - 1.07 x10E9/L 11/10/2021 10:38 AM CDT [facility] Eosinophils Absolute 0.25 0 - 0.47 x10E9/L 11/10/2021 10:38 AM CDT [facility] Basophils Absolute 0.02 0 - 0.08 x10E9/L 11/10/2021 10:38 AM CDT [facility] Immature Granulocytes Absolute 0.01 0.00 - 0.06 x10E9/L 11/10/2021 10:38 AM CDT [facility] nRBC Auto 0 /100 WBC 11/10/2021 10:38 AM T [facility] Blood BLOOD SPECIMEN / Unknown Venipuncture / Unknown 11/10/2021 4:30 AM CDT 11/10/2021 8:51 AM CDT Vinicio Quintanilla MD LAB - HEMATOLOGY ORD ERABLES [facility] [address] [place] [address] * (ABNORMAL) COMPREHENSIVE METABOLIC PANEL (11/10/2021 4:30 AM CDT) [facility] Glucose 96 70 - 105 mg/dL 11/10/2021 11:05 AM CDT [facility] Sodium 138 136 - 145 mmol/L 11/10/2021 11:05 AM [facility] Potassium 4.7 3.5 - 5.1 mmol/L 11/10/2021 11:05 AM [facility] Chloride 104 98 - 107 mmol/L 11/10/2021 11:05 AM [facility] CO2 23 23 - 31 mmol/L 11/10/2021 11:05 AM [facility] Calcium 9.8 8.4 - 10.4 mg/dL 11/10/2021 11:05 AM [facility] Anion Gap 11 8 - 18 mmol/L 11/10/2021 11:05 AM [facility] BUN 24(H) 8.9 - 20.6 mg/dL 11/10/2021 11:05 AM [facility] Creatinine 0.88 0.72 - 1.25 mg/dL 11/10/2021 11:05 AM [facility] Alkaline Phosphatase 139 40 - 150 U/L 11/10/2021 11:05 AM [facility] ALT 35 0 - 61 U/L 11/10/2021 11:05 AM [facility] AST 23 5 - 34 U/L 11/10/2021 11:05 AM [facility] Protein Total 7.2 6.4 - 8.3 gm/dL 11/10/2021 11:05 AM [facility] Albumin 3.5 3.5 - 5.2 gm/dL 11/10/2021 11:05 AM [facility] Bilirubin Total 0.2 0.2 - 1.2 mg/dL 11/10/2021 11:05 AM [facility] eGFR by CKD-EPI >90 >=90 mL/min/1.7 3 m2 11/10/2021 11:05 AM [facility] Blood BLOOD SPECIMEN / Unknown Venipuncture / Unknown 11/10/2021 4:30 AM T 11/10/2021 8:51 AM T Vinicio Quintanilla MD LAB - CHEMISTRY JOSE ENRIQUE VELA [facility] Organization Address City/State/ZIP Co de Phone Number [facility] [address] [place] [id number] documented in this encounter Visit Diagnoses Not on filedocumented in this encounter Care Teams Economics Consultant Relationship Specialty Start Date End Date Pepe Martel MD [address] [place] [phone] PCP - General 08/14/16 documented as of this encounter
--- OUTSIDE RECORDS SUMMARY | 2024-05-23 03:19 | XMS_ITS | Encounter Summary ---
Author Organization [facility] Address [address] [place] [address] Care Team Providers Care Block Mason Name Role Phone Pepe Martel MD Primary Care Provider [phone] Encounter Details Date Type Department Care Team (Late st Contact Info) Description 08/14/2021 Lab Requisition [facility] [address] [place] [address] [place] [address] [place] [address] Social History Tobacco Use Types Packs/Day Years [...] Associated Diagnosis Comments COMPREHENSIVE METABOLIC PANEL STAT 08/14/2021 4:05 AM CDT documented in this encounter Results * (ABNORMAL) COMPREHENSIVE METABOLIC PANEL (08/14/2021 4:05 AM CDT) Glucose 99 70 - 105 mg/dL 08/14/2021 9:28 AM CDT [facility] Sodium 140 136 - 145 mmol/L 08/14/2021 9:28 AM CDT [facility] Potassium 4.8 3.5 - 5.1 mmol/L 08/14/2021 9:28 AM CDT [facility] Chloride 101 98 - 107 mmol/L 08/14/2021 9:28 AM CDT [facility] CO2 28 23 - 31 mmol/L 08/14/2021 9:28 AM CDT [facility] Calcium 10.0 8.4 - 10.4 mg/dL 08/14/2021 9:28 AM CDT [facility] Anion Gap 11 8 - 18 mmol/L 08/14/2021 9:28 AM CDT [facility] BUN 26(H) 8.9 - 20.6 mg/dL 08/14/2021 9:28 AM CDT [facility] Creatinine 0.73 0.72 - 1.25 mg/dL 08/14/2021 9:28 AM CDT [facility] Alkaline Phosphatase 119 40 - 150 U/L 08/14/2021 9:28 AM CDT [facility] ALT 20 0 - 61 U/L 08/14/2021 9:28 AM CDT [facility] AST 13 5 - 34 U/L 08/14/2021 9:28 AM CDT [facility] Protein Total 7.1 6.4 - 8.3 gm/dL 08/14/2021 9:28 AM CDT [facility] Albumin 3.4(L) 3.5 - 5.2 gm/dL 08/14/2021 9:28 AM CDT [facility] Bilirubin Total 0.3 0.2 - 1.2 mg/dL 08/14/2021 9:28 AM CDT [facility] eGFR by CKD-EPI >90 >=90 mL/min/1.7 3 m2 08/14/2021 9:28 AM CDT [facility] Blood BLOOD SPECIMEN / Unknown Venipuncture / Unknown 08/14/2021 4:05 AM CDT 08/14/2021 8:56 AM CDT Narrative [facility] - 08/14/2021 9:28 AM CDT eGFR result was calculated using the updated CKD-EPI Creatinine Equations (2020). Prior to go live 2021 the eGFR was calculated using the MDRD calculation. Please note Reference Range change. Vinicio Quintanilla MD LAB - CHEMISTRY JOSE ENRIQUE VELA [facility] Organization Address City/State/ZIP Co de Phone Number [facility] [address] [place] [address] documented in this encounter Visit Diagnoses Not on filedocumented in this encounter Care Teams Block Mason Relationship Specialty Start Date End Date Pepe Martel MD [address] [place] [id number] PCP - General 08/14/16 documented as of this encounter
--- OUTSIDE RECORDS SUMMARY | 2024-05-23 03:19 | XMS_ITS | Encounter Summary ---
Author Organization [facility] Address [address] [place] [address] Care Team Providers Care Technical Support Engineer Name Role Phone Pepe Martel MD Primary Care Provider [phone] Encounter Details Date Type Department Care Team (Late st Contact Info) Description 08/25/2021 Lab Requisition [facility] [address] [place] [address] [place] [address] [place] [address] Social History Tobacco Use Types Packs/Day Years [...] Diagnosis Comments CBC W AUTO DIFFERENTIAL STAT 08/25/2021 5:37 AM CDT COMPREHENSIVE METABOLIC PANEL STAT 08/25/2021 5:37 AM CDT documented in this encounter Results * (ABNORMAL) CBC WITH DIFFERENTIAL (08/25/2021 5:37 AM CDT) WBC 7.6 4.4 - 10.7 x10E9/L 08/25/2021 10:23 AM CDT [facility] WBC Corrected 08/25/2021 10:23 AM CDT [facility] RBC 4.67 3.80 - 5.40 x10E12/L 08/25/2021 10:23 AM CDT [facility] Hemoglobin 12.2 12.0 - 17.6 gm/dL 08/25/2021 10:23 AM CDT [facility] Hematocrit 39.7 35.2 - 51.7 % 08/25/2021 10:23 AM CDT [facility] MCV 85.0 80.7 - 98.3 fl 08/25/2021 10:23 AM CDT [facility] MCH 26.1(L) 26.7 - 34.0 pg 08/25/2021 10:23 AM CDT [facility] MCHC 30.7(L) 30.8 - 35.9 gm/dL 08/25/2021 10:23 AM CDT [facility] Platelet Count 354 153 - 416 x10E9/L 08/25/2021 10:23 AM CDT [facility] RDW-CV 14.9 12.1 - 14.9 % 08/25/2021 10:23 AM CDT [facility] MPV 10.1 9.4 - 12.9 fl 08/25/2021 10:23 AM CDT [facility] Neutrophils % 61.9 44.0 - 73.0 % 08/25/2021 10:23 AM CDT [facility] Lymphocytes % 23.1 20.0 - 43.0 % 08/25/2021 10:23 AM CDT [facility] Monocytes % 11.0 5.0 - 13.0 % 08/25/2021 10:23 AM CDT [facility] Eosinophils % 3.3 0.0 - 6.0 % 08/25/2021 10:23 AM CDT [facility] Basophils % 0.4 0.0 - 2.0 % 08/25/2021 10:23 AM CDT [facility] Immature Granulocytes 0.3 0 - 1 % 08/25/2021 10:23 AM CDT [facility] Neutrophil Absolute 4.72 2.01 - 7.14 x10E9/L 08/25/2021 10:23 AM CDT [facility] Lymphocytes Absolute 1.76 1.07 - 3.94 x10E9/L 08/25/2021 10:23 AM CDT [facility] Monocytes Absolute 0.84 0.26 - 1.07 x10E9/L 08/25/2021 10:23 AM CDT [facility] Eosinophils Absolute 0.25 0 - 0.47 x10E9/L 08/25/2021 10:23 AM CDT [facility] Basophils Absolute 0.03 0 - 0.08 x10E9/L 08/25/2021 10:23 AM CDT [facility] Immature Granulocytes Absolute 0.02 0.00 - 0.06 x10E9/L 08/25/2021 10:23 AM CDT [facility] nRBC Auto 0 /100 WBC 08/25/2021 10:23 AM CDT [facility] Blood BLOOD SPECIMEN / Unknown Venipuncture / Unknown 08/25/2021 5:37 AM CDT 08/25/2021 9:40 AM CDT Vinicio Quintanilla MD LAB - HEMATOLOGY ORD ERABLES [facility] [address] [place] [address] * (ABNORMAL) COMPREHENSIVE METABOLIC PANEL (08/25/2021 5:37 AM CDT) [facility] Glucose 93 70 - 105 mg/dL 08/25/2021 10:43 AM CDT [facility] Sodium 141 136 - 145 mmol/L 08/25/2021 10:43 AM T [facility] Potassium 4.9 3.5 - 5.1 mmol/L 08/25/2021 10:43 AM [facility] Chloride 100 98 - 107 mmol/L 08/25/2021 10:43 AM T [facility] CO2 23 23 - 31 mmol/L 08/25/2021 10:43 AM [facility] Calcium 10.3 8.4 - 10.4 mg/dL 08/25/2021 10:43 AM [facility] Anion Gap 18 8 - 18 mmol/L 08/25/2021 10:43 AM T [facility] BUN 27(H) 8.9 - 20.6 mg/dL 08/25/2021 10:43 AM [facility] Creatinine 0.85 0.72 - 1.25 mg/dL 08/25/2021 10:43 AM [facility] Alkaline Phosphatase 162(H) 40 - 150 U/L 08/25/2021 10:43 AM [facility] ALT 24 0 - 61 U/L 08/25/2021 10:43 AM [facility] AST 17 5 - 34 U/L 08/25/2021 10:43 AM [facility] Protein Total 8.1 6.4 - 8.3 gm/dL 08/25/2021 10:43 AM [facility] Albumin 3.8 3.5 - 5.2 gm/dL 08/25/2021 10:43 AM [facility] Bilirubin Total 0.2 0.2 - 1.2 mg/dL 08/25/2021 10:43 AM [facility] eGFR by CKD-EPI >90 >=90 mL/min/1.7 3 m2 08/25/2021 10:43 AM [facility] Blood BLOOD SPECIMEN / Unknown Venipuncture / Unknown 08/25/2021 5:37 AM CDT 08/25/2021 9:40 AM CDT [facility] - 08/25/2021 10:43 AM T eGFR result was calculated using the updated CKD-EPI Creatinine Equations (2020). Prior to go live 2021 the eGFR was calculated using the MDRD calculation. Please note Reference Range change. Vinicio Quintanilla MD LAB - CHEMISTRY JOSE ENRIQUE VELA [facility] Organization Address City/State/ZIP Co de Phone Number [facility] [address] [place], [place] [id number] documented in this encounter Visit Diagnoses Not on filedocumented in this encounter Care Teams Technical Support Engineer Relationship Specialty Start Date End Date Pepe Martel MD [address] [place] [id number] PCP - General 08/14/16 documented as of this encounter
--- OUTSIDE RECORDS SUMMARY | 2024-05-23 03:19 | XMS_ITS | Encounter Summary ---
Author Organization [facility] Address [address] [place] [address] Care Team Providers Care Doper Operator Name Role Phone Pepe Martel MD Primary Care Provider [phone] Encounter Details Date Type Department Care Team (Late st Contact Info) Description 10/27/2021 Lab Requisition [facility] [address] [place] [address] [place] [address] [place] [address] Social History Tobacco Use Types Packs/Day Years [...] Diagnosis Comments CBC W AUTO DIFFERENTIAL STAT 10/27/2021 3:02 AM CDT COMPREHENSIVE METABOLIC PANEL STAT 10/27/2021 3:02 AM CDT documented in this encounter Results * (ABNORMAL) CBC WITH DIFFERENTIAL (10/27/2021 3:02 AM CDT) WBC 7.0 4.4 - 10.7 x10E9/L 10/27/2021 11:07 AM CDT [facility] WBC Corrected 10/27/2021 11:07 AM CDT [facility] RBC 4.27 3.80 - 5.40 x10E12/L 10/27/2021 11:07 AM CDT [facility] Hemoglobin 11.7(L) 12.0 - 17.6 gm/dL 10/27/2021 11:07 AM CDT [facility] Hematocrit 37.3 35.2 - 51.7 % 10/27/2021 11:07 AM CDT [facility] MCV 87.4 80.7 - 98.3 fl 10/27/2021 11:07 AM CDT [facility] MCH 27.4 26.7 - 34.0 pg 10/27/2021 11:07 AM CDT [facility] MCHC 31.4 30.8 - 35.9 gm/dL 10/27/2021 11:07 AM CDT [facility] Platelet Count 385 153 - 416 x10E9/L 10/27/2021 11:07 AM CDT [facility] RDW-CV 14.0 12.1 - 14.9 % 10/27/2021 11:07 AM CDT [facility] MPV 10.7 9.4 - 12.9 fl 10/27/2021 11:07 AM CDT [facility] Neutrophils % 59.4 44.0 - 73.0 % 10/27/2021 11:07 AM CDT [facility] Lymphocytes % 27.8 20.0 - 43.0 % 10/27/2021 11:07 AM CDT [facility] Monocytes % 8.4 5.0 - 13.0 % 10/27/2021 11:07 AM CDT [facility] Eosinophils % 3.7 0.0 - 6.0 % 10/27/2021 11:07 AM CDT [facility] Basophils % 0.4 0.0 - 2.0 % 10/27/2021 11:07 AM CDT [facility] Immature Granulocytes 0.3 0 - 1 % 10/27/2021 11:07 AM CDT [facility] Neutrophil Absolute 4.15 2.01 - 7.14 x10E9/L 10/27/2021 11:07 AM CDT [facility] Lymphocytes Absolute 1.94 1.07 - 3.94 x10E9/L 10/27/2021 11:07 AM CDT [facility] Monocytes Absolute 0.59 0.26 - 1.07 x10E9/L 10/27/2021 11:07 AM T [facility] Eosinophils Absolute 0.26 0 - 0.47 x10E9/L 10/27/2021 11:07 AM CDT [facility] Basophils Absolute 0.03 0 - 0.08 x10E9/L 10/27/2021 11:07 AM T [facility] Immature Granulocytes Absolute 0.02 0.00 - 0.06 x10E9/L 10/27/2021 11:07 AM CDT [facility] nRBC Auto 0 /100 WBC 10/27/2021 11:07 AM [facility] Blood BLOOD SPECIMEN / Unknown Venipuncture / Unknown 10/27/2021 3:02 AM CDT 10/27/2021 10:57 AM CDT Vinicio Quintanilla MD LAB - HEMATOLOGY ORD ERABLES [facility] [address] [place] [address] * (ABNORMAL) COMPREHENSIVE METABOLIC PANEL (10/27/2021 3:02 AM CDT) [facility] Signature Glucose 111(H) 70 - 105 mg/dL 10/27/2021 11:31 AM CDT [facility] Sodium 140 136 - 145 mmol/L 10/27/2021 11:31 AM CDT [facility] Potassium 4.8 3.5 - 5.1 mmol/L 10/27/2021 11:31 AM CDT [facility] Chloride 103 98 - 107 mmol/L 10/27/2021 11:31 AM CDT [facility] CO2 23 23 - 31 mmol/L 10/27/2021 11:31 AM CDT [facility] Calcium 10.0 8.4 - 10.4 mg/dL 10/27/2021 11:31 AM [facility] Anion Gap 14 8 - 18 mmol/L 10/27/2021 11:31 AM T [facility] BUN 33(H) 8.9 - 20.6 mg/dL 10/27/2021 11:31 AM [facility] Creatinine 1.01 0.72 - 1.25 mg/dL 10/27/2021 11:31 AM [facility] Alkaline Phosphatase 132 40 - 150 U/L 10/27/2021 11:31 AM CDT [facility] ALT 18 0 - 61 U/L 10/27/2021 11:31 AM CDT [facility] AST 12 5 - 34 U/L 10/27/2021 11:31 AM [facility] Protein Total 7.3 6.4 - 8.3 gm/dL 10/27/2021 11:31 AM [facility] Albumin 3.6 3.5 - 5.2 gm/dL 10/27/2021 11:31 AM [facility] Bilirubin Total 0.2 0.2 - 1.2 mg/dL 10/27/2021 11:31 AM [facility] eGFR by CKD-EPI >90 >=90 mL/min/1.7 3 m2 10/27/2021 11:31 AM [facility] Blood BLOOD SPECIMEN / Unknown Venipuncture / Unknown 10/27/2021 3:02 AM CDT 10/27/2021 10:57 AM T Vinicio Quintanilla MD LAB - CHEMISTRY JOSE ENRIQUE VELA [facility] Organization Address City/State/ZIP Co de Phone Number [facility] [address] [place] [address] documented in this encounter Visit Diagnoses Not on filedocumented in this encounter Care Teams Doper Operator Relationship Specialty Start Date End Date Pepe Martel MD [address] [place] [id number] PCP - General 08/14/16 documented as of this encounter
--- OUTSIDE RECORDS SUMMARY | 2024-05-23 03:19 | XMS_ITS | Encounter Summary ---
Author Organization [facility] Address [address] [place] [address] Care Team Providers Care Mule Operator Name Role Phone Pepe Martel MD Primary Care Provider [phone] Encounter Details Date Type Department Care Team (Late st Contact Info) Description 11/03/2021 Lab Requisition [facility] [address] [place] [address] [place] [address] [place] [address] Social History Tobacco Use Types Packs/Day Years [...] Diagnosis Comments CBC W AUTO DIFFERENTIAL STAT 11/03/2021 4:02 AM CDT COMPREHENSIVE METABOLIC PANEL STAT 11/03/2021 4:02 AM CDT documented in this encounter Results * (ABNORMAL) CBC WITH DIFFERENTIAL (11/03/2021 4:02 AM CDT) WBC 6.6 4.4 - 10.7 x10E9/L 11/03/2021 10:04 AM CDT [facility] WBC Corrected 11/03/2021 10:04 AM CDT [facility] RBC 4.18 3.80 - 5.40 x10E12/L 11/03/2021 10:04 AM CDT [facility] Hemoglobin 11.5(L) 12.0 - 17.6 gm/dL 11/03/2021 10:04 AM CDT [facility] Hematocrit 35.9 35.2 - 51.7 % 11/03/2021 10:04 AM CDT [facility] MCV 85.9 80.7 - 98.3 fl 11/03/2021 10:04 AM CDT [facility] MCH 27.5 26.7 - 34.0 pg 11/03/2021 10:04 AM CDT [facility] MCHC 32.0 30.8 - 35.9 gm/dL 11/03/2021 10:04 AM CDT [facility] Platelet Count 374 153 - 416 x10E9/L 11/03/2021 10:04 AM CDT [facility] RDW-CV 13.8 12.1 - 14.9 % 11/03/2021 10:04 AM CDT [facility] MPV 10.3 9.4 - 12.9 fl 11/03/2021 10:04 AM CDT [facility] Neutrophils % 57.3 44.0 - 73.0 % 11/03/2021 10:04 AM CDT [facility] Lymphocytes % 29.1 20.0 - 43.0 % 11/03/2021 10:04 AM CDT [facility] Monocytes % 8.9 5.0 - 13.0 % 11/03/2021 10:04 AM CDT [facility] Eosinophils % 4.1 0.0 - 6.0 % 11/03/2021 10:04 AM CDT [facility] Basophils % 0.3 0.0 - 2.0 % 11/03/2021 10:04 AM CDT [facility] Immature Granulocytes 0.3 0 - 1 % 11/03/2021 10:04 AM CDT [facility] Neutrophil Absolute 3.81 2.01 - 7.14 x10E9/L 11/03/2021 10:04 AM CDT [facility] Lymphocytes Absolute 1.93 1.07 - 3.94 x10E9/L 11/03/2021 10:04 AM CDT [facility] Monocytes Absolute 0.59 0.26 - 1.07 x10E9/L 11/03/2021 10:04 AM T [facility] Eosinophils Absolute 0.27 0 - 0.47 x10E9/L 11/03/2021 10:04 AM CDT [facility] Basophils Absolute 0.02 0 - 0.08 x10E9/L 11/03/2021 10:04 AM CDT [facility] Immature Granulocytes Absolute 0.02 0.00 - 0.06 x10E9/L 11/03/2021 10:04 AM CDT [facility] nRBC Auto 0 /100 WBC 11/03/2021 10:04 AM T [facility] Blood BLOOD SPECIMEN / Unknown Venipuncture / Unknown 11/03/2021 4:02 AM CDT 11/03/2021 8:58 AM CDT Vinicio Quintanilla MD LAB - HEMATOLOGY ORD ERABLES [facility] [address] [place] [address] * (ABNORMAL) COMPREHENSIVE METABOLIC PANEL (11/03/2021 4:02 AM CDT) [facility] Glucose 108(H) 70 - 105 mg/dL 11/03/2021 10:27 AM CDT [facility] Sodium 140 136 - 145 mmol/L 11/03/2021 10:27 AM CDT [facility] Potassium 4.3 3.5 - 5.1 mmol/L 11/03/2021 10:27 AM [facility] Chloride 103 98 - 107 mmol/L 11/03/2021 10:27 AM [facility] CO2 25 23 - 31 mmol/L 11/03/2021 10:27 AM [facility] Calcium 10.6(H) 8.4 - 10.4 mg/dL 11/03/2021 10:27 AM [facility] Anion Gap 12 8 - 18 mmol/L 11/03/2021 10:27 AM T [facility] BUN 32(H) 8.9 - 20.6 mg/dL 11/03/2021 10:27 AM [facility] Creatinine 1.09 0.72 - 1.25 mg/dL 11/03/2021 10:27 AM [facility] Alkaline Phosphatase 132 40 - 150 U/L 11/03/2021 10:27 AM [facility] ALT 18 0 - 61 U/L 11/03/2021 10:27 AM [facility] AST 11 5 - 34 U/L 11/03/2021 10:27 AM [facility] Protein Total 7.3 6.4 - 8.3 gm/dL 11/03/2021 10:27 AM [facility] Albumin 3.7 3.5 - 5.2 gm/dL 11/03/2021 10:27 AM [facility] Bilirubin Total 0.2 0.2 - 1.2 mg/dL 11/03/2021 10:27 AM [facility] eGFR by CKD-EPI >90 >=90 mL/min/1.7 3 m2 11/03/2021 10:27 AM [facility] Blood BLOOD SPECIMEN / Unknown Venipuncture / Unknown 11/03/2021 4:02 AM CDT 11/03/2021 8:58 AM T Vinicio Quintanilla MD LAB - CHEMISTRY JOSE ENRIQUE VELA [facility] Organization Address City/State/ZIP Co de Phone Number [facility] [address] [place] [address] documented in this encounter Visit Diagnoses Not on filedocumented in this encounter Care Teams Mule Operator Relationship Specialty Start Date End Date Pepe Martel MD [facility] [address] [address] PCP - General 08/14/16 documented as of this encounter
--- OUTSIDE RECORDS SUMMARY | 2024-05-23 03:19 | XMS_ITS | Encounter Summary ---
Author Organization [facility] Address [address] [place] [address] Care Team Providers Care Waste Cotton Cleaner Name Role Phone Pepe Martel MD Primary Care Provider [phone] Encounter Details Date Type Department Care Team (Late st Contact Info) Description 10/16/2021 Lab Requisition [facility] [address] [place] [address] [place] [address] [place] [address] Social History Tobacco Use Types Packs/Day Years [...] Diagnosis Comments CBC W AUTO DIFFERENTIAL STAT 10/16/2021 3:05 AM CDT COMPREHENSIVE METABOLIC PANEL STAT 10/16/2021 3:05 AM CDT documented in this encounter Results * (ABNORMAL) CBC WITH DIFFERENTIAL (10/16/2021 3:05 AM CDT) WBC 6.9 4.4 - 10.7 x10E9/L 10/16/2021 10:45 AM CDT [facility] WBC Corrected 10/16/2021 10:45 AM CDT [facility] RBC 4.28 3.80 - 5.40 x10E12/L 10/16/2021 10:45 AM CDT [facility] Hemoglobin 11.6(L) 12.0 - 17.6 gm/dL 10/16/2021 10:45 AM CDT [facility] Hematocrit 37.3 35.2 - 51.7 % 10/16/2021 10:45 AM CDT [facility] MCV 87.1 80.7 - 98.3 fl 10/16/2021 10:45 AM CDT [facility] MCH 27.1 26.7 - 34.0 pg 10/16/2021 10:45 AM CDT [facility] MCHC 31.1 30.8 - 35.9 gm/dL 10/16/2021 10:45 AM CDT [facility] Platelet Count 347 153 - 416 x10E9/L 10/16/2021 10:45 AM CDT [facility] RDW-CV 14.1 12.1 - 14.9 % 10/16/2021 10:45 AM CDT [facility] MPV 10.6 9.4 - 12.9 fl 10/16/2021 10:45 AM CDT [facility] Neutrophils % 58.0 44.0 - 73.0 % 10/16/2021 10:45 AM CDT [facility] Lymphocytes % 28.6 20.0 - 43.0 % 10/16/2021 10:45 AM CDT [facility] Monocytes % 9.2 5.0 - 13.0 % 10/16/2021 10:45 AM CDT [facility] Eosinophils % 3.8 0.0 - 6.0 % 10/16/2021 10:45 AM CDT [facility] Basophils % 0.3 0.0 - 2.0 % 10/16/2021 10:45 AM CDT [facility] Immature Granulocytes 0.1 0 - 1 % 10/16/2021 10:45 AM CDT [facility] Neutrophil Absolute 4.02 2.01 - 7.14 x10E9/L 10/16/2021 10:45 AM CDT [facility] Lymphocytes Absolute 1.98 1.07 - 3.94 x10E9/L 10/16/2021 10:45 AM CDT [facility] Monocytes Absolute 0.64 0.26 - 1.07 x10E9/L 10/16/2021 10:45 AM CDT [facility] Eosinophils Absolute 0.26 0 - 0.47 x10E9/L 10/16/2021 10:45 AM CDT [facility] Basophils Absolute 0.02 0 - 0.08 x10E9/L 10/16/2021 10:45 AM CDT [facility] Immature Granulocytes Absolute 0.01 0.00 - 0.06 x10E9/L 10/16/2021 10:45 AM CDT [facility] nRBC Auto 0 /100 WBC 10/16/2021 10:45 AM T [facility] Blood BLOOD SPECIMEN / Unknown Venipuncture / Unknown 10/16/2021 3:05 AM CDT 10/16/2021 10:12 AM CDT Vinicio Quintanilla MD LAB - HEMATOLOGY ORD ERABLES [facility] [address] [place] [address] * (ABNORMAL) COMPREHENSIVE METABOLIC PANEL (10/16/2021 3:05 AM CDT) [facility] Glucose 123(H) 70 - 105 mg/dL 10/16/2021 11:02 AM CDT [facility] Sodium 144 136 - 145 mmol/L 10/16/2021 11:02 AM [facility] Potassium 4.4 3.5 - 5.1 mmol/L 10/16/2021 11:02 AM [facility] Chloride 105 98 - 107 mmol/L 10/16/2021 11:02 AM [facility] CO2 27 23 - 31 mmol/L 10/16/2021 11:02 AM [facility] Calcium 10.1 8.4 - 10.4 mg/dL 10/16/2021 11:02 AM [facility] Anion Gap 12 8 - 18 mmol/L 10/16/2021 11:02 AM [facility] BUN 32(H) 8.9 - 20.6 mg/dL 10/16/2021 11:02 AM [facility] Creatinine 0.98 0.72 - 1.25 mg/dL 10/16/2021 11:02 AM [facility] Alkaline Phosphatase 134 40 - 150 U/L 10/16/2021 11:02 AM [facility] ALT 17 0 - 61 U/L 10/16/2021 11:02 AM [facility] AST 13 5 - 34 U/L 10/16/2021 11:02 AM [facility] Protein Total 7.2 6.4 - 8.3 gm/dL 10/16/2021 11:02 AM [facility] Albumin 3.5 3.5 - 5.2 gm/dL 10/16/2021 11:02 AM [facility] Bilirubin Total 0.1(L) 0.2 - 1.2 mg/dL 10/16/2021 11:02 AM [facility] eGFR by CKD-EPI >90 >=90 mL/min/1.7 3 m2 10/16/2021 11:02 AM [facility] Blood BLOOD SPECIMEN / Unknown Venipuncture / Unknown 10/16/2021 3:05 AM T 10/16/2021 10:12 AM [facility] Vinicio Quintanilla MD LAB - CHEMISTRY JOSE ENRIQUE VELA [facility] Organization Address City/State/ZIP Co de Phone Number [facility] [id number] [place] [address] documented in this encounter Visit Diagnoses Not on filedocumented in this encounter 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
--- OUTSIDE RECORDS SUMMARY | 2024-05-23 03:19 | XMS_ITS | Encounter Summary ---
Author Organization [facility] Address [address] [place] [address] Care Team Providers Care Stock Control Clerk Name Role Phone Pepe Martel MD Primary Care Provider [phone] Encounter Details Date Type Department Care Team (Late st Contact Info) Description 08/14/2021 Lab Requisition [facility] [address] [place] [address] [place] [address] [place] [address] Social History Tobacco Use Types Packs/Day Years [...] Diagnosis Comments CBC W AUTO DIFFERENTIAL STAT 08/14/2021 9:30 AM CDT documented in this encounter Results * (ABNORMAL) CBC WITH DIFFERENTIAL (08/14/2021 9:30 AM CDT) WBC 9.6 4.4 - 10.7 x10E9/L 08/14/2021 12:07 PM CDT [facility] WBC Corrected 08/14/2021 12:07 PM CDT [facility] RBC 4.31 3.80 - 5.40 x10E12/L 08/14/2021 12:07 PM CDT [facility] Hemoglobin 11.3(L) 12.0 - 17.6 gm/dL 08/14/2021 12:07 PM CDT [facility] Hematocrit 36.4 35.2 - 51.7 % 08/14/2021 12:07 PM CDT [facility] MCV 84.5 80.7 - 98.3 fl 08/14/2021 12:07 PM CDT [facility] MCH 26.2(L) 26.7 - 34.0 pg 08/14/2021 12:07 PM CDT [facility] MCHC 31.0 30.8 - 35.9 gm/dL 08/14/2021 12:07 PM CDT [facility] Platelet Count 499(H) 153 - 416 x10E9/L 08/14/2021 12:07 PM CDT [facility] RDW-CV 15.4(H) 12.1 - 14.9 % 08/14/2021 12:07 PM CDT [facility] MPV 9.7 9.4 - 12.9 fl 08/14/2021 12:07 PM CDT [facility] Neutrophils % 73.3(H) 44.0 - 73.0 % 08/14/2021 12:07 PM CDT [facility] Lymphocytes % 16.1(L) 20.0 - 43.0 % 08/14/2021 12:07 PM CDT [facility] Monocytes % 7.6 5.0 - 13.0 % 08/14/2021 12:07 PM CDT [facility] Eosinophils % 2.6 0.0 - 6.0 % 08/14/2021 12:07 PM CDT [facility] Basophils % 0.2 0.0 - 2.0 % 08/14/2021 12:07 PM CDT [facility] Immature Granulocytes 0.2 0 - 1 % 08/14/2021 12:07 PM CDT [facility] Neutrophil Absolute 7.07 2.01 - 7.14 x10E9/L 08/14/2021 12:07 PM CDT [facility] Lymphocytes Absolute 1.55 1.07 - 3.94 x10E9/L 08/14/2021 12:07 PM CDT [facility] Monocytes Absolute 0.73 0.26 - 1.07 x10E9/L 08/14/2021 12:07 PM CDT [facility] Eosinophils Absolute 0.25 0 - 0.47 x10E9/L 08/14/2021 12:07 PM CDT [facility] Basophils Absolute 0.02 0 - 0.08 x10E9/L 08/14/2021 12:07 PM CDT [facility] Immature Granulocytes Absolute 0.02 0.00 - 0.06 x10E9/L 08/14/2021 12:07 PM CDT [facility] nRBC Auto 0 /100 WBC 08/14/2021 12:07 PM CDT [facility] Blood BLOOD SPECIMEN / Unknown Venipuncture / Unknown 08/14/2021 9:30 AM CDT 08/14/2021 12:02 PM CDT Vinicio Quintanilla MD LAB - HEMATOLOGY ORD ERABLES [facility] [address] [place] [address] documented in this encounter Visit Diagnoses Not on filedocumented in this encounter Care Teams Stock Control Clerk Relationship Specialty Start Date End Date Pepe Martel MD [address] [place] [address] [address] [place] [address] PCP - General 3/31/17 documented as of this encounter
--- OUTSIDE RECORDS SUMMARY | 2024-05-23 03:19 | XMS_ITS | Encounter Summary ---
Author Organization [facility] Address [address] [place] [address] Care Team Providers Care Pocketed Spring Assembler Name Role Phone Pepe Martel MD Primary Care Provider [phone] Encounter Details Date Type Department Care Team (Late st Contact Info) Description 12/04/2021 Lab Requisition [facility] [address] [place] [address] Alverto Virgen MD [address] [place] [address] [place] [address] Social History Tobacco Use Types Packs/Day Years [...] Diagnosis Comments CBC W AUTO DIFFERENTIAL STAT 12/04/2021 3:05 AM CDT COMPREHENSIVE METABOLIC PANEL STAT 12/04/2021 3:05 AM CDT documented in this encounter Results * (ABNORMAL) CBC WITH DIFFERENTIAL (12/04/2021 3:05 AM CDT) WBC 8.6 4.4 - 10.7 x10E9/L 12/04/2021 11:53 AM CDT [facility] WBC Corrected 12/04/2021 11:53 AM CDT [facility] RBC 4.07 3.80 - 5.40 x10E12/L 12/04/2021 11:53 AM CDT [facility] Hemoglobin 11.0(L) 12.0 - 17.6 gm/dL 12/04/2021 11:53 AM CDT [facility] Hematocrit 35.4 35.2 - 51.7 % 12/04/2021 11:53 AM CDT [facility] MCV 87.0 80.7 - 98.3 fl 12/04/2021 11:53 AM CDT [facility] MCH 27.0 26.7 - 34.0 pg 12/04/2021 11:53 AM CDT [facility] MCHC 31.1 30.8 - 35.9 gm/dL 12/04/2021 11:53 AM CDT [facility] Platelet Count 413 153 - 416 x10E9/L 12/04/2021 11:53 AM CDT [facility] RDW-CV 13.4 12.1 - 14.9 % 12/04/2021 11:53 AM CDT [facility] MPV 10.2 9.4 - 12.9 fl 12/04/2021 11:53 AM CDT [facility] Neutrophils % 60.7 44.0 - 73.0 % 12/04/2021 11:53 AM CDT [facility] Lymphocytes % 25.8 20.0 - 43.0 % 12/04/2021 11:53 AM CDT [facility] Monocytes % 10.4 5.0 - 13.0 % 12/04/2021 11:53 AM CDT [facility] Eosinophils % 2.7 0.0 - 6.0 % 12/04/2021 11:53 AM CDT [facility] Basophils % 0.2 0.0 - 2.0 % 12/04/2021 11:53 AM CDT [facility] Immature Granulocytes 0.2 0 - 1 % 12/04/2021 11:53 AM CDT [facility] Neutrophil Absolute 5.18 2.01 - 7.14 x10E9/L 12/04/2021 11:53 AM CDT [facility] Lymphocytes Absolute 2.21 1.07 - 3.94 x10E9/L 12/04/2021 11:53 AM CDT [facility] Monocytes Absolute 0.89 0.26 - 1.07 x10E9/L 12/04/2021 11:53 AM CDT [facility] Eosinophils Absolute 0.23 0 - 0.47 x10E9/L 12/04/2021 11:53 AM CDT [facility] Basophils Absolute 0.02 0 - 0.08 x10E9/L 12/04/2021 11:53 AM CDT [facility] Immature Granulocytes Absolute 0.02 0.00 - 0.06 x10E9/L 12/04/2021 11:53 AM CDT [facility] nRBC Auto 0 /100 WBC 12/04/2021 11:53 AM T [facility] Blood BLOOD SPECIMEN / Unknown Venipuncture / Unknown 12/04/2021 3:05 AM CDT 12/04/2021 10:59 AM CDT Alverto Virgen MD LAB - HEMATOLOGY ORDERABLES [facility] [address] [place] [address] * (ABNORMAL) COMPREHENSIVE METABOLIC PANEL (12/04/2021 3:05 AM CDT) [facility] Glucose 100 70 - 105 mg/dL 12/04/2021 11:48 AM CDT [facility] Sodium 141 136 - 145 mmol/L 12/04/2021 11:48 AM CDT [facility] Potassium 4.8 3.5 - 5.1 mmol/L 12/04/2021 11:48 AM CDT [facility] Chloride 102 98 - 107 mmol/L 12/04/2021 11:48 AM CDT [facility] CO2 24 23 - 31 mmol/L 12/04/2021 11:48 AM CDT [facility] Calcium 10.3 8.4 - 10.4 mg/dL 12/04/2021 11:48 AM T [facility] Anion Gap 15 8 - 18 mmol/L 12/04/2021 11:48 AM CDT [facility] BUN 31(H) 8.9 - 20.6 mg/dL 12/04/2021 11:48 AM CDT [facility] Creatinine 1.11 0.72 - 1.25 mg/dL 12/04/2021 11:48 AM T [facility] Alkaline Phosphatase 126 40 - 150 U/L 12/04/2021 11:48 AM CDT [facility] ALT 18 0 - 61 U/L 12/04/2021 11:48 AM CDT [facility] AST 13 5 - 34 U/L 12/04/2021 11:48 AM T [facility] Protein Total 7.7 6.4 - 8.3 gm/dL 12/04/2021 11:48 AM T [facility] Albumin 3.7 3.5 - 5.2 gm/dL 12/04/2021 11:48 AM T [facility] Bilirubin Total 0.3 0.2 - 1.2 mg/dL 12/04/2021 11:[address] [facility] eGFR by CKD-EPI 89(L) >=90 mL/min/1.7 3 m2 12/04/2021 11:48 AM T [facility] Blood BLOOD SPECIMEN / Unknown Venipuncture / Unknown 12/04/2021 3:05 AM CDT 12/04/2021 10:59 AM CDT Alverto Virgen MD LAB - CHEMISTRY O RDERABLES [facility] [address] [place] [address] documented in this encounter Visit Diagnoses Not on filedocumented in this encounter Care Teams Pocketed Spring Assembler Relationship Specialty Start Date End Date Pepe Martel MD [address] [place] [id number] PCP - General 08/14/16 documented as of this encounter
--- OUTSIDE RECORDS SUMMARY | 2024-05-23 03:19 | XMS_ITS | Encounter Summary ---
Author Organization [facility] Address [address] [place] [address] Care Team Providers Care Deckhand Fishing Vessel Name Role Phone Pepe Martel MD Primary Care Provider [phone] Encounter Details Date Type Department Care Team (Late st Contact Info) Description 10/20/2021 Lab Requisition [facility] [address] [place] [address] [place] [address] [place] [address] Social History Tobacco Use Types Packs/Day Years [...] Diagnosis Comments CBC W AUTO DIFFERENTIAL Routine 10/20/2021 3:35 AM CDT COMPREHENSIVE METABOLIC PANEL STAT 10/20/2021 3:35 AM CDT documented in this encounter Results * CBC WITH DIFFERENTIAL (10/20/2021 3:35 AM CDT) WBC 8.3 4.4 - 10.7 x10E9/L 10/20/2021 9:28 AM CDT [facility] WBC Corrected 10/20/2021 9:28 AM CDT [facility] RBC 4.72 3.80 - 5.40 x10E12/L 10/20/2021 9:28 AM CDT [facility] Hemoglobin 12.8 12.0 - 17.6 gm/dL 10/20/2021 9:28 AM CDT [facility] Hematocrit 40.9 35.2 - 51.7 % 10/20/2021 9:28 AM CDT [facility] MCV 86.7 80.7 - 98.3 fl 10/20/2021 9:28 AM CDT [facility] MCH 27.1 26.7 - 34.0 pg 10/20/2021 9:28 AM CDT [facility] MCHC 31.3 30.8 - 35.9 gm/dL 10/20/2021 9:28 AM CDT [facility] Platelet Count 377 153 - 416 x10E9/L 10/20/2021 9:28 AM CDT [facility] RDW-CV 13.7 12.1 - 14.9 % 10/20/2021 9:28 AM CDT [facility] MPV 10.5 9.4 - 12.9 fl 10/20/2021 9:28 AM CDT [facility] Neutrophils % 60.5 44.0 - 73.0 % 10/20/2021 9:28 AM CDT [facility] Lymphocytes % 27.2 20.0 - 43.0 % 10/20/2021 9:28 AM CDT [facility] Monocytes % 8.9 5.0 - 13.0 % 10/20/2021 9:28 AM CDT [facility] Eosinophils % 2.9 0.0 - 6.0 % 10/20/2021 9:28 AM CDT [facility] Basophils % 0.4 0.0 - 2.0 % 10/20/2021 9:28 AM CDT [facility] Immature Granulocytes 0.1 0 - 1 % 10/20/2021 9:28 AM CDT [facility] Neutrophil Absolute 5.05 2.01 - 7.14 x10E9/L 10/20/2021 9:28 AM CDT [facility] Lymphocytes Absolute 2.27 1.07 - 3.94 x10E9/L 10/20/2021 9:28 AM CDT [facility] Monocytes Absolute 0.74 0.26 - 1.07 x10E9/L 10/20/2021 9:28 AM CDT [facility] Eosinophils Absolute 0.24 0 - 0.47 x10E9/L 10/20/2021 9:28 AM CDT [facility] Basophils Absolute 0.03 0 - 0.08 x10E9/L 10/20/2021 9:28 AM CDT [facility] Immature Granulocytes Absolute 0.01 0.00 - 0.06 x10E9/L 10/20/2021 9:28 AM CDT [facility] nRBC Auto 0 /100 WBC 10/20/2021 9:28 AM CDT [facility] Blood BLOOD SPECIMEN / Unknown Venipuncture / Unknown 10/20/2021 3:35 AM CDT 10/20/2021 8:48 AM CDT Vinicio Quintanilla MD LAB - HEMATOLOGY ORD ERABLES [facility] [address] [place] [address] * (ABNORMAL) COMPREHENSIVE METABOLIC PANEL (10/20/2021 3:35 AM CDT) [facility] Glucose 93 70 - 105 mg/dL 10/20/2021 9:55 AM CDT [facility] Sodium 143 136 - 145 mmol/L 10/20/2021 9:[facility] Potassium 4.6 3.5 - 5.1 mmol/L 10/20/2021 9:55 AM CDT [facility] Chloride 105 98 - 107 mmol/L 10/20/2021 9:55 [facility] CO2 25 23 - 31 mmol/L 10/20/2021 9:[address] [facility] Calcium 10.7(H) 8.4 - 10.4 mg/dL 10/20/2021 9:55 AM CDT [facility] Anion Gap 13 8 - 18 mmol/L 10/20/2021 9:55 AM CDT [facility] BUN 30(H) 8.9 - 20.6 mg/dL 10/20/2021 9:[address] [facility] Creatinine 1.07 0.72 - 1.25 mg/dL 10/20/2021 9:[address] [facility] Alkaline Phosphatase 156(H) 40 - 150 U/L 10/20/2021 9:55 AM CDT [facility] ALT 20 0 - 61 U/L 10/20/2021 9:55 [facility] AST 12 5 - 34 U/L 10/20/2021 9:[address] [facility] Protein Total 7.9 6.4 - 8.3 gm/dL 10/20/2021 9:[address] [facility] Albumin 3.9 3.5 - 5.2 gm/dL 10/20/2021 9:[address] [facility] Bilirubin Total 0.3 0.2 - 1.2 mg/dL 10/20/2021 9:[address] [facility] eGFR by CKD-EPI >90 >=90 mL/min/1.7 3 m2 10/20/2021 9:[address] [facility] Blood BLOOD SPECIMEN / Unknown Venipuncture / Unknown 10/20/2021 3:35 AM CDT 10/20/2021 8:48 AM CDT Vinicio Quintanilla MD LAB - CHEMISTRY JOSE ENRIQUE VELA [facility] [place] Organization Address City/State/ZIP Co de Phone Number [facility] [address] [place] [address] documented in this encounter Visit Diagnoses Not on filedocumented in this encounter Care Teams Deckhand Fishing Vessel Relationship Specialty Start Date End Date Pepe Martel MD [address] [place] [id number] PCP - General 08/14/16 documented as of this encounter
--- OUTSIDE RECORDS SUMMARY | 2024-05-23 03:19 | XMS_ITS | Encounter Summary ---
Author Organization [facility] Address [address] [place] [address] Care Team Providers Care Manager Practice Name Role Phone Pepe Martel MD Primary Care Provider [phone] Encounter Details Date Type Department Care Team (Late st Contact Info) Description 10/02/2021 Lab Requisition [facility] [address] [place] [address] [place] [address] [place] [address] Social History Tobacco Use Types Packs/Day Years [...] Diagnosis Comments CBC W AUTO DIFFERENTIAL STAT 10/02/2021 3:00 AM CDT COMPREHENSIVE METABOLIC PANEL STAT 10/02/2021 3:00 AM CDT documented in this encounter Results * (ABNORMAL) CBC WITH DIFFERENTIAL (10/02/2021 3:00 AM CDT) WBC 6.7 4.4 - 10.7 x10E9/L 10/02/2021 10:01 AM CDT [facility] WBC Corrected 10/02/2021 10:01 AM CDT [facility] RBC 4.49 3.80 - 5.40 x10E12/L 10/02/2021 10:01 AM CDT [facility] Hemoglobin 12.2 12.0 - 17.6 gm/dL 10/02/2021 10:01 AM CDT [facility] Hematocrit 40.1 35.2 - 51.7 % 10/02/2021 10:01 AM CDT [facility] MCV 89.3 80.7 - 98.3 fl 10/02/2021 10:01 AM CDT [facility] MCH 27.2 26.7 - 34.0 pg 10/02/2021 10:01 AM CDT [facility] MCHC 30.4(L) 30.8 - 35.9 gm/dL 10/02/2021 10:01 AM CDT [facility] Platelet Count 442(H) 153 - 416 x10E9/L 10/02/2021 10:01 AM CDT [facility] RDW-CV 14.1 12.1 - 14.9 % 10/02/2021 10:01 AM CDT [facility] MPV 10.8 9.4 - 12.9 fl 10/02/2021 10:01 AM CDT [facility] Neutrophils % 60.1 44.0 - 73.0 % 10/02/2021 10:01 AM CDT [facility] Lymphocytes % 26.9 20.0 - 43.0 % 10/02/2021 10:01 AM CDT [facility] Monocytes % 9.3 5.0 - 13.0 % 10/02/2021 10:01 AM CDT [facility] Eosinophils % 3.0 0.0 - 6.0 % 10/02/2021 10:01 AM CDT [facility] Basophils % 0.5 0.0 - 2.0 % 10/02/2021 10:01 AM T [facility] Immature Granulocytes 0.2 0 - 1 % 10/02/2021 10:01 AM CDT [facility] Neutrophil Absolute 4.01 2.01 - 7.14 x10E9/L 10/02/2021 10:01 AM T [facility] Lymphocytes Absolute 1.79 1.07 - 3.94 x10E9/L 10/02/2021 10:01 AM CDT [facility] Monocytes Absolute 0.62 0.26 - 1.07 x10E9/L 10/02/2021 10:01 AM T [facility] Eosinophils Absolute 0.20 0 - 0.47 x10E9/L 10/02/2021 10:01 AM T [facility] Basophils Absolute 0.03 0 - 0.08 x10E9/L 10/02/2021 10:01 AM T [facility] Immature Granulocytes Absolute 0.01 0.00 - 0.06 x10E9/L 10/02/2021 10:01 AM T [facility] nRBC Auto 0 /100 WBC 10/02/2021 10:01 AM [facility] Blood BLOOD SPECIMEN / Unknown Venipuncture / Unknown 10/02/2021 3:00 AM CDT 10/02/2021 9:39 AM CDT Vinicio Quintanilla MD LAB - HEMATOLOGY ORD ERABLES [facility] [address] [place] [address] * (ABNORMAL) COMPREHENSIVE METABOLIC PANEL (10/02/2021 3:00 AM CDT) [facility] Glucose 99 70 - 105 mg/dL 10/02/2021 10:26 AM [facility] Sodium 145 136 - 145 mmol/L 10/02/2021 10:26 AM [facility] Potassium 4.9 3.5 - 5.1 mmol/L 10/02/2021 10:26 AM [facility] Chloride 105 98 - 107 mmol/L 10/02/2021 10:26 AM [facility] CO2 26 23 - 31 mmol/L 10/02/2021 10:26 AM [facility] Calcium 10.6(H) 8.4 - 10.4 mg/dL 10/02/2021 10:26 AM [facility] Anion Gap 14 8 - 18 mmol/L 10/02/2021 10:26 AM [facility] BUN 32(H) 8.9 - 20.6 mg/dL 10/02/2021 10:26 AM [facility] Creatinine 1.07 0.72 - 1.25 mg/dL 10/02/2021 10:26 AM [facility] Alkaline Phosphatase 165(H) 40 - 150 U/L 10/02/2021 10:26 AM [facility] ALT 27 0 - 61 U/L 10/02/2021 10:26 AM [facility] AST 18 5 - 34 U/L 10/02/2021 10:26 AM [facility] Protein Total 8.2 6.4 - 8.3 gm/dL 10/02/2021 10:26 AM [facility] Albumin 3.8 3.5 - 5.2 gm/dL 10/02/2021 10:26 AM [facility] Bilirubin Total 0.4 0.2 - 1.2 mg/dL 10/02/2021 10:26 AM [facility] eGFR by CKD-EPI >90 >=90 mL/min/1.7 3 m2 10/02/2021 10:26 AM [facility] Blood BLOOD SPECIMEN / Unknown Venipuncture / Unknown 10/02/2021 3:00 AM CDT 10/02/2021 9:39 AM T Vinicio Quintanilla MD LAB - CHEMISTRY JOSE ENRIQUE VELA [facility] Organization Address City/State/ZIP Co de Phone Number [facility] [address] [place] [address] documented in this encounter Visit Diagnoses Not on filedocumented in this encounter Care Teams Manager Practice Relationship Specialty Start Date End Date Pepe Martel MD [address] [place] [address] [address] [place] [address] PCP - General 08/14/16 documented as of this encounter
--- OUTSIDE RECORDS SUMMARY | 2024-05-23 03:19 | XMS_ITS | Encounter Summary ---
Author Organization [facility] Address [address] [place] [address] Care Team Providers Care Telephone Order Dispatcher Name Role Phone Pepe Martel MD Primary Care Provider [phone] Encounter Details Date Type Department Care Team (Late st Contact Info) Description 10/08/2021 Lab Requisition [facility] [address] [place], [place] [id number] [place] [address] [place] [address] Social History Tobacco Use Types [...] Procedure Name Priority Date/Time Associated Diagnosis Comments URINALYSIS REFLEX TO MICROSCOPIC NO CULTURE STAT 10/07/2021 5:16 PM CDT documented in this encounter Results * (ABNORMAL) URINALYSIS REFLEX TO MICROSCOPIC NO CULTURE (10/07/2021 5:16 PM CDT) Color UA Yellow Straw, Yellow 10/08/2021 8:33 AM CDT [facility] Clarity UA Slt Cloudy(A) Clear 10/08/2021 8:33 AM CDT [facility] Glucose UA Negative Negative 10/08/2021 8:33 AM CDT [facility] Bilirubin UA Negative Negative 10/08/2021 8:33 AM CDT [facility] Ketone UA Negative Negative 10/08/2021 8:33 AM CDT [facility] Specific Diana UA 1.015 1.005 - 1.030 10/08/2021 8:33 AM CDT [facility] Blood UA Negative Negative 10/08/2021 8:33 AM CDT [facility] pH UA 7.0 5.0 - 8.0 pH 10/08/2021 8:33 AM CDT [facility] Protein UA Negative Negative 10/08/2021 8:33 AM CDT [facility] Urobilinogen UA Negative Negative mg/dL 10/08/2021 8:33 AM CDT [facility] Nitrite UA Negative Negative 10/08/2021 8:33 AM CDT [facility] Leukocyte UA Negative Negative 10/08/2021 8:33 AM CDT [facility] Urine Microscopy Urine microscopy not indicated 10/08/2021 8:33 AM CDT [facility] Urine URINE SPECIMEN OBTAINED BY CLEAN CATCH PROCEDURE / Unknown Collection / Unknown 10/07/2021 5:16 PM CDT 10/08/2021 7:51 AM CDT Narrative [facility] - 10/08/2021 8:33 AM CDT Ascorbic Acid can cause false negative urine strip tests for blood, glucose, nitrite, and bilirubin. Braden A David MD LAB - URINALYSIS ORD ERABLES [facility] [address] [place] [address] documented in this encounter Visit Diagnoses Not on filedocumented in this encounter Care Teams Telephone Order Dispatcher Relationship Specialty Start Date End Date Pepe Martel MD [address] [facility] [address] [place] [address] PCP - General 08/14/16 documented as of this encounter
--- OUTSIDE RECORDS SUMMARY | 2024-05-23 03:19 | XMS_ITS | Encounter Summary ---
Author Organization [facility] Address [address] [place] [address] Care Team Providers Care Group Care Worker Name Role Phone Pepe Martel MD Primary Care Provider [phone] Encounter Details Date Type Department Care Team (Late st Contact Info) Description 12/01/2021 Lab Requisition [facility] [address] [place] [address] Alverto Virgen MD [address] [place] [address] [place] [address] Social History Tobacco Use Types Packs/Day Years [...] Associated Diagnosis Comments SLIDE SCAN HEMATOLOGY Routine 12/01/2021 4:00 AM CDT CBC W AUTO DIFFERENTIAL STAT 12/01/2021 4:00 AM CDT COMPREHENSIVE METABOLIC PANEL STAT 12/01/2021 4:00 AM CDT documented in this encounter Results * (ABNORMAL) SLIDE SCAN HEMATOLOGY (12/01/2021 4:00 AM CDT) Clumped Platelets 1+(A) None 12/01/2021 11:24 AM CDT [facility] Blood BLOOD SPECIMEN / Unknown Venipuncture / Unknown 12/01/2021 4:00 AM CDT 12/01/2021 9:28 AM CDT Alverto Virgen MD LAB - HEMATOLOGY ORDERABLES Performing Organization Address City/State/[facility] Co de Phone Number [facility] [address] [place] [address] * (ABNORMAL) CBC WITH DIFFERENTIAL (12/01/2021 4:00 AM CDT) WBC 7.7 4.4 - 10.7 x10E9/L 12/01/2021 10:46 AM CDT [facility] WBC Corrected 12/01/2021 10:46 AM CDT [facility] RBC 3.99 3.80 - 5.40 x10E12/L 12/01/2021 10:46 AM CDT [facility] Hemoglobin 10.7(L) 12.0 - 17.6 gm/dL 12/01/2021 10:46 AM CDT [facility] Hematocrit 34.8(L) 35.2 - 51.7 % 12/01/2021 10:46 AM CDT [facility] MCV 87.2 80.7 - 98.3 fl 12/01/2021 10:46 AM CDT [facility] MCH 26.8 26.7 - 34.0 pg 12/01/2021 10:46 AM CDT [facility] MCHC 30.7(L) 30.8 - 35.9 gm/dL 12/01/2021 10:46 AM CDT [facility] Platelet Count 385 153 - 416 x10E9/L 12/01/2021 10:46 AM CDT [facility] RDW-CV 13.3 12.1 - 14.9 % 12/01/2021 10:46 AM CDT [facility] MPV 10.5 9.4 - 12.9 fl 12/01/2021 10:46 AM CDT [facility] Neutrophils % 58.3 44.0 - 73.0 % 12/01/2021 10:46 AM CDT [facility] Lymphocytes % 29.2 20.0 - 43.0 % 12/01/2021 10:46 AM CDT [facility] Monocytes % 9.9 5.0 - 13.0 % 12/01/2021 10:46 AM CDT [facility] Eosinophils % 1.9 0.0 - 6.0 % 12/01/2021 10:46 AM CDT [facility] Basophils % 0.4 0.0 - 2.0 % 12/01/2021 10:46 AM CDT [facility] Immature Granulocytes 0.3 0 - 1 % 12/01/2021 10:46 AM CDT [facility] Neutrophil Absolute 4.50 2.01 - 7.14 x10E9/L 12/01/2021 10:46 AM CDT [facility] Lymphocytes Absolute 2.25 1.07 - 3.94 x10E9/L 12/01/2021 10:46 AM CDT [facility] Monocytes Absolute 0.76 0.26 - 1.07 x10E9/L 12/01/2021 10:46 AM CDT [facility] Eosinophils Absolute 0.15 0 - 0.47 x10E9/L 12/01/2021 10:46 AM CDT [facility] Basophils Absolute 0.03 0 - 0.08 x10E9/L 12/01/2021 10:46 AM CDT [facility] Immature Granulocytes Absolute 0.02 0.00 - 0.06 x10E9/L 12/01/2021 10:46 AM CDT [facility] nRBC Auto 0 /100 WBC 12/01/2021 10:46 AM CDT [facility] Blood BLOOD SPECIMEN / Unknown Venipuncture / Unknown 12/01/2021 4:00 AM CDT 12/01/2021 9:28 AM CDT Alverto Virgen MD LAB - HEMATOLOGY ORDERABLES Performing Organization Address City/[facility] Co de Phone Number [facility] [address] [place] [address] * (ABNORMAL) COMPREHENSIVE METABOLIC PANEL (12/01/2021 4:00 AM CDT) Glucose 96 70 - 105 mg/dL 12/01/2021 10:54 AM [facility] Sodium 142 136 - 145 mmol/L 12/01/2021 10:54 AM [facility] Potassium 4.9 3.5 - 5.1 mmol/L 12/01/2021 10:54 AM [facility] Chloride 103 98 - 107 mmol/L 12/01/2021 10:54 AM [facility] CO2 24 23 - 31 mmol/L 12/01/2021 10:54 AM [facility] Calcium 10.6(H) 8.4 - 10.4 mg/dL 12/01/2021 10:54 AM [facility] Anion Gap 15 8 - 18 mmol/L 12/01/2021 10:54 AM [facility] BUN 31(H) 8.9 - 20.6 mg/dL 12/01/2021 10:54 AM [facility] Creatinine 1.06 0.72 - 1.25 mg/dL 12/01/2021 10:54 AM [facility] Alkaline Phosphatase 132 40 - 150 U/L 12/01/2021 10:[facility] ALT 21 0 - 61 U/L 12/01/2021 10:54 AM CDT [facility] AST 12 5 - 34 U/L 12/01/2021 10:54 AM [facility] Protein Total 7.6 6.4 - 8.3 gm/dL 12/01/2021 10:54 AM CDT [facility] Albumin 3.7 3.5 - 5.2 gm/dL 12/01/2021 10:54 AM CDT [facility] Bilirubin Total 0.3 0.2 - 1.2 mg/dL 12/01/2021 10:54 AM CDT [facility] eGFR by CKD-EPI >90 >=90 mL/min/1.7 3 m2 12/01/2021 10:54 AM CDT [facility] Blood BLOOD SPECIMEN / Unknown Venipuncture / Unknown 12/01/2021 4:00 AM CDT 12/01/2021 9:28 AM CDT Alverto Virgen MD LAB - CHEMISTRY O RDERABLES Performing Organization Address City/State/[facility] Co de Phone Number [facility] [address] [place] [address] documented in this encounter Visit Diagnoses Not on filedocumented in this encounter Care Teams Group Care Worker Relationship Specialty Start Date End Date Pepe Martel MD [address] [place] [id number] PCP - General 08/14/16 documented as of this encounter
--- OUTSIDE RECORDS SUMMARY | 2024-05-23 03:19 | XMS_ITS | Encounter Summary ---
Author Organization [facility] Address [address] [facility] [place] [address] Care Team Providers Care Senior Media Planner Name Role Phone Pepe Martel MD Primary Care Provider [phone] Encounter Details Date Type Department Care Team (Late st Contact Info) Description 10/06/2021 Lab Requisition [facility] [address] [place] [address] [place] [address] [place] [address] Social History Tobacco Use Types Packs/Day Years [...] Diagnosis Comments CBC W AUTO DIFFERENTIAL STAT 10/06/2021 4:30 AM CDT COMPREHENSIVE METABOLIC PANEL STAT 10/06/2021 4:30 AM CDT documented in this encounter Results * (ABNORMAL) CBC WITH DIFFERENTIAL (10/06/2021 4:30 AM CDT) WBC 6.8 4.4 - 10.7 x10E9/L 10/06/2021 9:27 AM CDT [facility] WBC Corrected 10/06/2021 9:27 AM CDT [facility] RBC 4.67 3.80 - 5.40 x10E12/L 10/06/2021 9:27 AM CDT [facility] Hemoglobin 12.5 12.0 - 17.6 gm/dL 10/06/2021 9:27 AM CDT [facility] Hematocrit 40.7 35.2 - 51.7 % 10/06/2021 9:27 AM CDT [facility] MCV 87.2 80.7 - 98.3 fl 10/06/2021 9:27 AM CDT [facility] MCH 26.8 26.7 - 34.0 pg 10/06/2021 9:27 AM CDT [facility] MCHC 30.7(L) 30.8 - 35.9 gm/dL 10/06/2021 9:27 AM CDT [facility] Platelet Count 444(H) 153 - 416 x10E9/L 10/06/2021 9:27 AM CDT [facility] RDW-CV 14.0 12.1 - 14.9 % 10/06/2021 9:27 AM CDT [facility] MPV 10.8 9.4 - 12.9 fl 10/06/2021 9:27 AM CDT [facility] Neutrophils % 63.7 44.0 - 73.0 % 10/06/2021 9:27 AM CDT [facility] Lymphocytes % 25.1 20.0 - 43.0 % 10/06/2021 9:27 AM CDT [facility] Monocytes % 6.4 5.0 - 13.0 % 10/06/2021 9:27 AM CDT [facility] Eosinophils % 4.3 0.0 - 6.0 % 10/06/2021 9:27 AM CDT [facility] Basophils % 0.4 0.0 - 2.0 % 10/06/2021 9:27 AM T [facility] Immature Granulocytes 0.1 0 - 1 % 10/06/2021 9:27 AM CDT [facility] Neutrophil Absolute 4.30 2.01 - 7.14 x10E9/L 10/06/2021 9:27 AM CDT [facility] Lymphocytes Absolute 1.70 1.07 - 3.94 x10E9/L 10/06/2021 9:27 AM CDT [facility] Monocytes Absolute 0.43 0.26 - 1.07 x10E9/L 10/06/2021 9:27 AM T [facility] Eosinophils Absolute 0.29 0 - 0.47 x10E9/L 10/06/2021 9:27 AM CDT [facility] Basophils Absolute 0.03 0 - 0.08 x10E9/L 10/06/2021 9:27 AM T [facility] Immature Granulocytes Absolute 0.01 0.00 - 0.06 x10E9/L 10/06/2021 9:27 AM CDT [facility] nRBC Auto 0 /100 WBC 10/06/2021 9:27 AM [facility] Blood BLOOD SPECIMEN / Unknown Venipuncture / Unknown 10/06/2021 4:30 AM CDT 10/06/2021 9:21 AM CDT Vinicio Quintanilla MD LAB - HEMATOLOGY ORD ERABLES [facility] [address] [place] [address] * (ABNORMAL) COMPREHENSIVE METABOLIC PANEL (10/06/2021 4:30 AM CDT) [facility] Glucose 117(H) 70 - 105 mg/dL 10/06/2021 9:49 AM CDT [facility] Sodium 145 136 - 145 mmol/L 10/06/2021 9:49 AM CDT [facility] Potassium 4.6 3.5 - 5.1 mmol/L 10/06/2021 9:49 AM CDT [facility] Chloride 107 98 - 107 mmol/L 10/06/2021 9:49 AM CDT [facility] CO2 26 23 - 31 mmol/L 10/06/2021 9:49 AM CDT [facility] Calcium 10.6(H) 8.4 - 10.4 mg/dL 10/06/2021 9:49 AM CDT [facility] Anion Gap 12 8 - 18 mmol/L 10/06/2021 9:49 AM CDT [facility] BUN 32(H) 8.9 - 20.6 mg/dL 10/06/2021 9:49 AM CDT [facility] Creatinine 1.05 0.72 - 1.25 mg/dL 10/06/2021 9:49 AM T [facility] Alkaline Phosphatase 156(H) 40 - 150 U/L 10/06/2021 9:49 AM CDT [facility] ALT 23 0 - 61 U/L 10/06/2021 9:49 AM CDT [facility] AST 12 5 - 34 U/L 10/06/2021 9:49 AM T [facility] Protein Total 7.7 6.4 - 8.3 gm/dL 10/06/2021 9:49 AM [facility] Albumin 3.8 3.5 - 5.2 gm/dL 10/06/2021 9:49 AM T [facility] Bilirubin Total 0.2 0.2 - 1.2 mg/dL 10/06/2021 9:49 AM [facility] eGFR by CKD-EPI >90 >=90 mL/min/1.7 3 m2 10/06/2021 9:49 AM [facility] Blood BLOOD SPECIMEN / Unknown Venipuncture / Unknown 10/06/2021 4:30 AM CDT 10/06/2021 9:21 AM CDT Vinicio Quintanilla MD LAB - CHEMISTRY JOSE ENRIUQE VELA [facility] Organization Address City/State/ZIP Co de Phone Number [facility] [address] [place] [address] documented in this encounter Visit Diagnoses Not on filedocumented in this encounter Care Teams Senior Media Planner Relationship Specialty Start Date End Date Pepe Martel MD [address] [place] [id number] PCP - General 08/14/16 documented as of this encounter
--- OUTSIDE RECORDS SUMMARY | 2024-05-23 03:19 | XMS_ITS | Encounter Summary ---
Author Organization [facility] Address [address] [address] Care Team Providers Care Strip Machine Tender Name Role Phone Pepe Martel MD Primary Care Provider [phone] Encounter Details Date Type Department Care Team (Late st Contact Info) Description 09/08/2021 Lab Requisition [facility] [address] [place] [address] [place] [address] [place] [address] Social History Tobacco Use Types Packs/Day Years [...] Diagnosis Comments CBC W AUTO DIFFERENTIAL STAT 09/08/2021 4:50 AM CDT COMPREHENSIVE METABOLIC PANEL STAT 09/08/2021 4:50 AM CDT documented in this encounter Results * (ABNORMAL) CBC WITH DIFFERENTIAL (09/08/2021 4:50 AM CDT) WBC 7.7 4.4 - 10.7 x10E9/L 09/08/2021 9:39 AM CDT [facility] WBC Corrected 09/08/2021 9:39 AM CDT [facility] RBC 4.35 3.80 - 5.40 x10E12/L 09/08/2021 9:39 AM CDT [facility] Hemoglobin 11.4(L) 12.0 - 17.6 gm/dL 09/08/2021 9:39 AM CDT [facility] Hematocrit 37.1 35.2 - 51.7 % 09/08/2021 9:39 AM CDT [facility] MCV 85.3 80.7 - 98.3 fl 09/08/2021 9:39 AM CDT [facility] MCH 26.2(L) 26.7 - 34.0 pg 09/08/2021 9:39 AM CDT [facility] MCHC 30.7(L) 30.8 - 35.9 gm/dL 09/08/2021 9:39 AM CDT [facility] Platelet Count 489(H) 153 - 416 x10E9/L 09/08/2021 9:39 AM CDT [facility] RDW-CV 14.2 12.1 - 14.9 % 09/08/2021 9:39 AM CDT [facility] MPV 10.2 9.4 - 12.9 fl 09/08/2021 9:39 AM CDT [facility] Neutrophils % 58.8 44.0 - 73.0 % 09/08/2021 9:39 AM CDT [facility] Lymphocytes % 26.0 20.0 - 43.0 % 09/08/2021 9:39 AM CDT [facility] Monocytes % 11.4 5.0 - 13.0 % 09/08/2021 9:39 AM CDT [facility] Eosinophils % 3.0 0.0 - 6.0 % 09/08/2021 9:39 AM CDT [facility] Basophils % 0.4 0.0 - 2.0 % 09/08/2021 9:39 AM CDT [facility] Immature Granulocytes 0.4 0 - 1 % 09/08/2021 9:39 AM CDT [facility] Neutrophil Absolute 4.51 2.01 - 7.14 x10E9/L 09/08/2021 9:39 AM CDT [facility] Lymphocytes Absolute 1.99 1.07 - 3.94 x10E9/L 09/08/2021 9:39 AM CDT [facility] Monocytes Absolute 0.87 0.26 - 1.07 x10E9/L 09/08/2021 9:39 AM CDT [facility] Eosinophils Absolute 0.23 0 - 0.47 x10E9/L 09/08/2021 9:39 AM CDT [facility] Basophils Absolute 0.03 0 - 0.08 x10E9/L 09/08/2021 9:39 AM CDT [facility] Immature Granulocytes Absolute 0.03 0.00 - 0.06 x10E9/L 09/08/2021 9:39 AM CDT [facility] nRBC Auto 0 /100 WBC 09/08/2021 9:39 AM CDT [facility] Blood BLOOD SPECIMEN / Unknown Venipuncture / Unknown 09/08/2021 4:50 AM CDT 09/08/2021 9:12 AM CDT Vinicio Quintanilla MD LAB - HEMATOLOGY ORD ERABLES [facility] [address] [place] [address] * (ABNORMAL) COMPREHENSIVE METABOLIC PANEL (09/08/2021 4:50 AM CDT) [facility] Glucose 91 70 - 105 mg/dL 09/08/2021 10:10 AM CDT [facility] Sodium 139 136 - 145 mmol/L 09/08/2021 10:10 AM CDT [facility] Potassium 4.8 3.5 - 5.1 mmol/L 09/08/2021 10:10 AM CDT [facility] Chloride 101 98 - 107 mmol/L 09/08/2021 10:10 AM CDT [facility] CO2 27 23 - 31 mmol/L 09/08/2021 10:10 AM CDT [facility] Calcium 10.1 8.4 - 10.4 mg/dL 09/08/2021 10:10 AM CDT [facility] Anion Gap 11 8 - 18 mmol/L 09/08/2021 10:10 AM CDT [facility] BUN 28(H) 8.9 - 20.6 mg/dL 09/08/2021 10:10 AM CDT [facility] Creatinine 0.92 0.72 - 1.25 mg/dL 09/08/2021 10:10 AM T [facility] Alkaline Phosphatase 151(H) 40 - 150 U/L 09/08/2021 10:10 AM CDT [facility] ALT 31 0 - 61 U/L 09/08/2021 10:10 AM CDT [facility] AST 15 5 - 34 U/L 09/08/2021 10:10 AM T [facility] Protein Total 7.9 6.4 - 8.3 gm/dL 09/08/2021 10:10 AM T [facility] Albumin 3.8 3.5 - 5.2 gm/dL 09/08/2021 10:10 AM T [facility] Bilirubin Total 0.2 0.2 - 1.2 mg/dL 09/08/2021 10:10 AM [facility] eGFR by CKD-EPI >90 >=90 mL/min/1.7 3 m2 09/08/2021 10:10 AM [facility] Blood BLOOD SPECIMEN / Unknown Venipuncture / Unknown 09/08/2021 4:50 AM CDT 09/08/2021 9:12 AM CDT [facility] - 09/08/2021 10:10 AM CDT eGFR result was calculated using the updated CKD-EPI Creatinine Equations (2020). Prior to go live 2021 the eGFR was calculated using the MDRD calculation. Please note Reference Range change. Vinicio Quintanilla MD LAB - CHEMISTRY JOSE ENRIQUE VELA [facility] Organization Address City/State/ZIP Co de Phone Number [facility] [address] [place] [address] documented in this encounter Visit Diagnoses Not on filedocumented in this encounter Care Teams Strip Machine Tender Relationship Specialty Start Date End Date Pepe Martel MD [address] [place] [address] [address] [place] [address] PCP - General 08/14/16 documented as of this encounter
--- OUTSIDE RECORDS SUMMARY | 2024-05-23 03:19 | XMS_ITS | Encounter Summary ---
Author Organization [facility] Address [address] [place] [address] Care Team Providers Care Roof Slater Name Role Phone Pepe Martel MD Primary Care Provider [phone] Encounter Details Date Type Department Care Team (Late st Contact Info) Description 11/06/2021 Lab Requisition [facility] [address] [place] [address] [place] [address] [place] [address] Social History Tobacco Use Types Packs/Day Years [...] Diagnosis Comments CBC W AUTO DIFFERENTIAL STAT 11/06/2021 3:25 AM CDT COMPREHENSIVE METABOLIC PANEL STAT 11/06/2021 3:25 AM CDT documented in this encounter Results * CBC WITH DIFFERENTIAL (11/06/2021 3:25 AM CDT) WBC 8.8 4.4 - 10.7 x10E9/L 11/06/2021 8:57 AM CDT [facility] WBC Corrected 11/06/2021 8:57 AM CDT [facility] RBC 4.53 3.80 - 5.40 x10E12/L 11/06/2021 8:57 AM CDT [facility] Hemoglobin 12.3 12.0 - 17.6 gm/dL 11/06/2021 8:57 AM CDT [facility] Hematocrit 39.5 35.2 - 51.7 % 11/06/2021 8:57 AM CDT [facility] MCV 87.2 80.7 - 98.3 fl 11/06/2021 8:57 AM CDT [facility] MCH 27.2 26.7 - 34.0 pg 11/06/2021 8:57 AM CDT [facility] MCHC 31.1 30.8 - 35.9 gm/dL 11/06/2021 8:57 AM CDT [facility] Platelet Count 382 153 - 416 x10E9/L 11/06/2021 8:57 AM CDT [facility] RDW-CV 13.5 12.1 - 14.9 % 11/06/2021 8:57 AM CDT [facility] MPV 10.5 9.4 - 12.9 fl 11/06/2021 8:57 AM CDT [facility] Neutrophils % 67.2 44.0 - 73.0 % 11/06/2021 8:57 AM CDT [facility] Lymphocytes % 20.1 20.0 - 43.0 % 11/06/2021 8:57 AM CDT [facility] Monocytes % 9.4 5.0 - 13.0 % 11/06/2021 8:57 AM CDT [facility] Eosinophils % 2.9 0.0 - 6.0 % 11/06/2021 8:57 AM CDT [facility] Basophils % 0.3 0.0 - 2.0 % 11/06/2021 8:57 AM CDT [facility] Immature Granulocytes 0.1 0 - 1 % 11/06/2021 8:57 AM CDT [facility] Neutrophil Absolute 5.92 2.01 - 7.14 x10E9/L 11/06/2021 8:57 AM CDT [facility] Lymphocytes Absolute 1.77 1.07 - 3.94 x10E9/L 11/06/2021 8:57 AM CDT [facility] Monocytes Absolute 0.83 0.26 - 1.07 x10E9/L 11/06/2021 8:57 AM CDT [facility] Eosinophils Absolute 0.26 0 - 0.47 x10E9/L 11/06/2021 8:57 AM CDT [facility] Basophils Absolute 0.03 0 - 0.08 x10E9/L 11/06/2021 8:57 AM CDT [facility] Immature Granulocytes Absolute 0.01 0.00 - 0.06 x10E9/L 11/06/2021 8:57 AM CDT [facility] nRBC Auto 0 /100 WBC 11/06/2021 8:57 AM CDT [facility] Blood BLOOD SPECIMEN / Unknown Venipuncture / Unknown 11/06/2021 3:25 AM CDT 11/06/2021 8:47 AM CDT Vinicio Quintanilla MD LAB - HEMATOLOGY ORD ERABLES [facility] [address] [place] [address] * (ABNORMAL) COMPREHENSIVE METABOLIC PANEL (11/06/2021 3:25 AM CDT) [facility] Glucose 114(H) 70 - 105 mg/dL 11/06/2021 9:16 AM CDT [facility] Sodium 141 136 - 145 mmol/L 11/06/2021 9:16 AM CDT [facility] Potassium 4.3 3.5 - 5.1 mmol/L 11/06/2021 9:16 AM CDT [facility] Chloride 104 98 - 107 mmol/L 11/06/2021 9:16 AM CDT [facility] CO2 23 23 - 31 mmol/L 11/06/2021 9:16 AM CDT [facility] Calcium 10.4 8.4 - 10.4 mg/dL 11/06/2021 9:16 AM CDT [facility] Anion Gap 14 8 - 18 mmol/L 11/06/2021 9:16 AM CDT [facility] BUN 33(H) 8.9 - 20.6 mg/dL 11/06/2021 9:16 AM CDT [facility] Creatinine 1.09 0.72 - 1.25 mg/dL 11/06/2021 9:16 AM CDT [facility] Alkaline Phosphatase 144 40 - 150 U/L 11/06/2021 9:16 AM CDT [facility] ALT 22 0 - 61 U/L 11/06/2021 9:16 AM CDT [facility] AST 13 5 - 34 U/L 11/06/2021 9:16 AM CDT [facility] Protein Total 7.6 6.4 - 8.3 gm/dL 11/06/2021 9:16 AM CDT [facility] Albumin 3.9 3.5 - 5.2 gm/dL 11/06/2021 9:16 AM CDT [facility] Bilirubin Total 0.3 0.2 - 1.2 mg/dL 11/06/2021 9:16 AM T [facility] eGFR by CKD-EPI >90 >=90 mL/min/1.7 3 m2 11/06/2021 9:16 AM T [facility] Blood BLOOD SPECIMEN / Unknown Venipuncture / Unknown 11/06/2021 3:25 AM CDT 11/06/2021 8:47 AM CDT Vinicio Quintanilla MD LAB - CHEMISTRY [facility] Organization Address City/State/ZIP Co de Phone Number [facility] [address] [place] [address] documented in this encounter Visit Diagnoses Not on filedocumented in this encounter Care Teams Roof Slater Relationship Specialty Start Date End Date Pepe Martel MD [address] [place] [id number] PCP - General 08/14/16 documented as of this encounter
--- OUTSIDE RECORDS SUMMARY | 2024-05-23 03:19 | XMS_ITS | Encounter Summary ---
Author Organization [facility] Address [address] [place] [address] Care Team Providers Care Bone Char Puller Name Role Phone Pepe Martel MD Primary Care Provider [phone] Encounter Details Date Type Department Care Team (Late st Contact Info) Description 10/30/2021 Lab Requisition [facility] [address] [place] [address] [place] [address] [place] [address] Social History Tobacco Use Types Packs/Day Years [...] Diagnosis Comments CBC W AUTO DIFFERENTIAL STAT 10/30/2021 5:34 AM CDT COMPREHENSIVE METABOLIC PANEL STAT 10/30/2021 5:34 AM CDT documented in this encounter Results * (ABNORMAL) CBC WITH DIFFERENTIAL (10/30/2021 5:34 AM CDT) WBC 6.5 4.4 - 10.7 x10E9/L 10/30/2021 9:54 AM CDT [facility] WBC Corrected 10/30/2021 9:54 AM CDT [facility] RBC 4.36 3.80 - 5.40 x10E12/L 10/30/2021 9:54 AM CDT [facility] Hemoglobin 11.7(L) 12.0 - 17.6 gm/dL 10/30/2021 9:54 AM CDT [facility] Hematocrit 38.6 35.2 - 51.7 % 10/30/2021 9:54 AM CDT [facility] MCV 88.5 80.7 - 98.3 fl 10/30/2021 9:54 AM CDT [facility] MCH 26.8 26.7 - 34.0 pg 10/30/2021 9:54 AM CDT [facility] MCHC 30.3(L) 30.8 - 35.9 gm/dL 10/30/2021 9:54 AM CDT [facility] Platelet Count 414 153 - 416 x10E9/L 10/30/2021 9:54 AM CDT [facility] RDW-CV 13.7 12.1 - 14.9 % 10/30/2021 9:54 AM CDT [facility] MPV 10.6 9.4 - 12.9 fl 10/30/2021 9:54 AM CDT [facility] Neutrophils % 52.9 44.0 - 73.0 % 10/30/2021 9:54 AM CDT [facility] Lymphocytes % 33.9 20.0 - 43.0 % 10/30/2021 9:54 AM CDT [facility] Monocytes % 8.6 5.0 - 13.0 % 10/30/2021 9:54 AM CDT [facility] Eosinophils % 3.9 0.0 - 6.0 % 10/30/2021 9:54 AM CDT [facility] Basophils % 0.5 0.0 - 2.0 % 10/30/2021 9:54 AM CDT [facility] Immature Granulocytes 0.2 0 - 1 % 10/30/2021 9:54 AM CDT [facility] Neutrophil Absolute 3.44 2.01 - 7.14 x10E9/L 10/30/2021 9:54 AM CDT [facility] Lymphocytes Absolute 2.20 1.07 - 3.94 x10E9/L 10/30/2021 9:54 AM CDT [facility] Monocytes Absolute 0.56 0.26 - 1.07 x10E9/L 10/30/2021 9:54 AM CDT [facility] Eosinophils Absolute 0.25 0 - 0.47 x10E9/L 10/30/2021 9:54 AM CDT [facility] Basophils Absolute 0.03 0 - 0.08 x10E9/L 10/30/2021 9:54 AM CDT [facility] Immature Granulocytes Absolute 0.01 0.00 - 0.06 x10E9/L 10/30/2021 9:54 AM CDT [facility] nRBC Auto 0 /100 WBC 10/30/2021 9:54 AM CDT [facility] Blood BLOOD SPECIMEN / Unknown Venipuncture / Unknown 10/30/2021 5:34 AM CDT 10/30/2021 9:46 AM CDT Vinicio Quintanilla MD LAB - HEMATOLOGY ORD ERABLES [facility] [address] [place] [address] * (ABNORMAL) COMPREHENSIVE METABOLIC PANEL (10/30/2021 5:34 AM CDT) [facility] Glucose 122(H) 70 - 105 mg/dL 10/30/2021 10:16 AM CDT [facility] Sodium 141 136 - 145 mmol/L 10/30/2021 10:16 AM CDT [facility] Potassium 4.3 3.5 - 5.1 mmol/L 10/30/2021 10:16 AM CDT [facility] Chloride 104 98 - 107 mmol/L 10/30/2021 10:16 AM CDT [facility] CO2 24 23 - 31 mmol/L 10/30/2021 10:16 AM CDT [facility] Calcium 10.3 8.4 - 10.4 mg/dL 10/30/2021 10:16 AM CDT [facility] Anion Gap 13 8 - 18 mmol/L 10/30/2021 10:16 AM CDT [facility] BUN 30(H) 8.9 - 20.6 mg/dL 10/30/2021 [facility] Creatinine 1.12 0.72 - 1.25 mg/dL 10/30/2021 10:16 AM [facility] Alkaline Phosphatase 137 40 - 150 U/L 10/30/2021 10:16 AM CDT [facility] ALT 21 0 - 61 U/L 10/30/2021 10:16 AM CDT [facility] AST 12 5 - 34 U/L 10/30/2021 10:16 AM [facility] Protein Total 7.5 6.4 - 8.3 gm/dL 10/30/2021 10:16 AM [facility] Albumin 3.7 3.5 - 5.2 gm/dL 10/30/2021 10:16 AM [facility] Bilirubin Total 0.2 0.2 - 1.2 mg/dL 10/30/2021 10:16 AM [facility] eGFR by CKD-EPI 88(L) >=90 mL/min/1.7 3 m2 10/30/2021 10:16 AM [facility] Blood BLOOD SPECIMEN / Unknown Venipuncture / Unknown 10/30/2021 5:34 AM CDT 10/30/2021 9:46 AM CDT Vinicio Quintanilla MD LAB - CHEMISTRY JOSE ENRIQUE [facility] Organization Address City/State/ZIP Co de Phone Number [facility] [address] [place] [address] documented in this encounter Visit Diagnoses Not on filedocumented in this encounter Care Teams Bone Char Puller Relationship Specialty Start Date End Date Pepe Martel MD [address] [place] [id number] PCP - General 08/14/16 documented as of this encounter
--- OUTSIDE RECORDS SUMMARY | 2024-05-23 03:19 | XMS_ITS | Encounter Summary ---
Author Organization [facility] Address [address] [place] [address] Care Team Providers Care Cosmetics And Toiletries Salesperson Name Role Phone Pepe Martel MD Primary Care Provider [phone] Encounter Details Date Type Department Care Team (Late st Contact Info) Description 11/13/2021 Lab Requisition [facility] [address] [place] [address] [place] [address] [place] [address] Social History Tobacco Use Types Packs/Day Years [...] Date/Time Associated Diagnosis Comments DIFFERENTIAL MANUAL Routine 11/13/2021 5 :48 AM CDT CBC W AUTO DIFFERENTIAL STAT 11/13/2021 5:48 AM CDT COMPREHENSIVE METABOLIC PANEL STAT 11/13/2021 5:48 AM CDT documented in this encounter Results * (ABNORMAL) DIFFERENTIAL MANUAL (11/13/2021 5:48 AM CDT) WBC Auto 7.3 x10E9/L 11/13/2021 10:56 AM CDT [facility] WBC Corrected 11/13/2021 10:56 AM CDT [facility] nRBC 11/13/2021 10:56 AM CDT [facility] Neutrophil % Manual 60 44 - 73 % 11/13/2021 10:56 AM CDT [facility] Lymphocytes % Manual 26 20 - 43 % 11/13/2021 10:56 AM CDT [facility] Monocytes % Manual 11 5 - 13 % 11/13/2021 10:56 AM CDT [facility] Eosinophils % Manual 1 0 - 6 % 11/13/2021 10:56 AM CDT [facility] Basophils % Manual 1 0 - 2 % 11/13/2021 10:56 AM CDT [facility] Neutrophils Absolute Manual 4.38 2.01 - 7.14 x10E9/L 11/13/2021 10:56 AM CDT [facility] Lymphocytes Absolute Manual 1.90 1.07 - 3.94 x10E9/L 11/13/2021 10:56 AM CDT [facility] Monocytes Absolute Manual 0.80 0.26 - 1.07 x10E9/L 11/13/2021 10:56 AM CDT [facility] Eosinophils Absolute Manual 0.07 0.00 - 0.47 x10E9/L 11/13/2021 10:56 AM CDT [facility] Basophils Absolute Manual 0.07 0.00 - 0.08 x10E9/L 11/13/2021 10:56 AM CDT [facility] Atypical Lymphocytes Absolute Manual 0.07(H) <=0.00 x10E9/L 11/13/2021 10:56 AM CDT [facility] Atypical Lymphocyte % Manual 1(H) <=0 % 11/13/2021 10:56 AM CDT [facility] Cells Counted 100 # cells 11/13/2021 10:56 AM CDT [facility] Platelet Estimation Adequate platelets Normal, Adequate platelets 11/13/2021 10:56 AM CDT [facility] RBC Morphology Normal 11/13/2021 10:56 AM CDT [facility] WBC Morph Normal 11/13/2021 10:56 AM CDT [facility] Clumped Platelets 1+(A) None 11/13/2021 10:56 AM CDT [facility] Blood BLOOD SPECIMEN / Unknown Venipuncture / Unknown 11/13/2021 5:48 AM CDT 11/13/2021 9:23 AM CDT Vinicio Quintanilla MD LAB - HEMATOLOGY ORD ERABLES [facility] [address] [place] [address] * (ABNORMAL) CBC WITH DIFFERENTIAL (11/13/2021 5:48 AM CDT) WBC 7.3 4.4 - 10.7 x10E9/L 11/13/2021 10:23 AM CDT [facility] WBC Corrected 11/13/2021 10:23 AM CDT [facility] RBC 3.86 3.80 - 5.40 x10E12/L 11/13/2021 10:23 AM CDT [facility] Hemoglobin 10.5(L) 12.0 - 17.6 gm/dL 11/13/2021 10:23 AM CDT [facility] Hematocrit 33.2(L) 35.2 - 51.7 % 11/13/2021 10:23 AM CDT [facility] MCV 86.0 80.7 - 98.3 fl 11/13/2021 10:23 AM CDT [facility] MCH 27.2 26.7 - 34.0 pg 11/13/2021 10:23 AM CDT [facility] MCHC 31.6 30.8 - 35.9 gm/dL 11/13/2021 10:23 AM CDT [facility] Platelet Count 371 153 - 416 x10E9/L 11/13/2021 10:23 AM CDT [facility] RDW-CV 13.4 12.1 - 14.9 % 11/13/2021 10:23 AM CDT [facility] MPV 10.0 9.4 - 12.9 fl 11/13/2021 10:23 AM CDT [facility] nRBC Auto 0 /100 WBC 11/13/2021 10:23 AM CDT [facility] Blood BLOOD SPECIMEN / Unknown Venipuncture / Unknown 11/13/2021 5:48 AM CDT 11/13/2021 9:23 AM CDT Vinicio Quintanilla MD LAB - HEMATOLOGY ORD ERABLES Performing Organization Address City/State/[facility] Co de Phone Number [facility] [address] [place] [address] * (ABNORMAL) COMPREHENSIVE METABOLIC PANEL (11/13/2021 5:48 AM CDT) Glucose 119(H) 70 - 105 mg/dL 11/13/2021 10:48 AM CDT [facility] Sodium 141 136 - 145 mmol/L 11/13/2021 10:48 AM CDT [facility] Potassium 4.7 3.5 - 5.1 mmol/L 11/13/2021 10:48 AM CDT [facility] Chloride 107 98 - 107 mmol/L 11/13/2021 10:48 AM CDT [facility] CO2 23 23 - 31 mmol/L 11/13/2021 10:48 AM CDT [facility] Calcium 9.9 8.4 - 10.4 mg/dL 11/13/2021 10:48 AM CDT [facility] Anion Gap 11 8 - 18 mmol/L 11/13/2021 10:48 AM CDT [facility] BUN 28(H) 8.9 - 20.6 mg/dL 11/13/2021 10:48 AM CDT [facility] Creatinine 0.92 0.72 - 1.25 mg/dL 11/13/2021 10:48 AM CDT [facility] Alkaline Phosphatase 132 40 - 150 U/L 11/13/2021 10:48 AM CDT [facility] ALT 41 0 - 61 U/L 11/13/2021 10:48 AM CDT [facility] AST 25 5 - 34 U/L 11/13/2021 10:48 AM CDT [facility] Protein Total 7.1 6.4 - 8.3 gm/dL 11/13/2021 10:48 AM CDT [facility] Albumin 3.4(L) 3.5 - 5.2 gm/dL 11/13/2021 10:48 AM CDT [facility] Bilirubin Total 0.2 0.2 - 1.2 mg/dL 11/13/2021 10:48 AM CDT [facility] eGFR by CKD-EPI >90 >=90 mL/min/1.7 3 m2 11/13/2021 10:48 AM CDT [facility] Blood BLOOD SPECIMEN / Unknown Venipuncture / Unknown 11/13/2021 5:48 AM CDT 11/13/2021 9:23 AM CDT Vinicio Quintanilla MD LAB - CHEMISTRY JOSE ENRIQUE [facility] Organization Address City/State/[facility] Co de Phone Number [facility] [address] [place], [place] [id number] documented in this encounter Visit Diagnoses Not on filedocumented in this encounter Care Teams Cosmetics And Toiletries Salesperson Relationship Specialty Start Date End Date Pepe Martel MD [address] [place] [address] [address] [place] [address] PCP - General 08/14/16 documented as of this encounter
--- OUTSIDE RECORDS SUMMARY | 2024-05-23 03:19 | XMS_ITS | Encounter Summary ---
Author Organization [facility] Address [address] [place] [address] Care Team Providers Care Recovery Assistant Name Role Phone Pepe Martel MD Primary Care Provider [phone] Encounter Details Date Type Department Care Team (Late st Contact Info) Description 11/20/2021 Lab Requisition [facility] [address] [place] [address] Alverto Virgen MD [address] [place] [address] [place] [address] Social History Tobacco Use Types Packs/Day Years [...] Diagnosis Comments CBC W AUTO DIFFERENTIAL STAT 11/20/2021 3:10 AM CDT COMPREHENSIVE METABOLIC PANEL STAT 11/20/2021 3:10 AM CDT documented in this encounter Results * (ABNORMAL) COMPREHENSIVE METABOLIC PANEL (11/20/2021 3:10 AM CDT) Glucose 94 70 - 105 mg/dL 11/20/2021 9:43 AM CDT [facility] Sodium 138 136 - 145 mmol/L 11/20/2021 9:43 AM CDT [facility] Potassium 5.0 3.5 - 5.1 mmol/L 11/20/2021 9:43 AM CDT [facility] Chloride 101 98 - 107 mmol/L 11/20/2021 9:43 AM CDT [facility] CO2 24 23 - 31 mmol/L 11/20/2021 9:43 AM CDT [facility] Calcium 10.2 8.4 - 10.4 mg/dL 11/20/2021 9:43 AM CDT [facility] Anion Gap 13 8 - 18 mmol/L 11/20/2021 9:43 AM CDT [facility] BUN 33(H) 8.9 - 20.6 mg/dL 11/20/2021 9:43 AM CDT [facility] Creatinine 0.86 0.72 - 1.25 mg/dL 11/20/2021 9:43 AM CDT [facility] Alkaline Phosphatase 124 40 - 150 U/L 11/20/2021 9:43 AM CDT [facility] ALT 24 0 - 61 U/L 11/20/2021 9:43 AM CDT [facility] AST 16 5 - 34 U/L 11/20/2021 9:43 AM CDT [facility] Protein Total 7.2 6.4 - 8.3 gm/dL 11/20/2021 9:43 AM CDT [facility] Albumin 3.5 3.5 - 5.2 gm/dL 11/20/2021 9:43 AM CDT [facility] Bilirubin Total 0.2 0.2 - 1.2 mg/dL 11/20/2021 9:43 AM CDT [facility] eGFR by CKD-EPI >90 >=90 mL/min/1.7 3 m2 11/20/2021 9:43 AM CDT [facility] Blood BLOOD SPECIMEN / Unknown Venipuncture / Unknown 11/20/2021 3:10 AM CDT 11/20/2021 8:55 AM CDT Alverto Virgen MD LAB - CHEMISTRY O RDERABLES Performing Organization Address City/State/[facility] Co de Phone Number [facility] [address] [place] [address] * (ABNORMAL) CBC WITH DIFFERENTIAL (11/20/2021 3:10 AM CDT) WBC 8.0 4.4 - 10.7 x10E9/L 11/20/2021 9:21 AM CDT [facility] WBC Corrected 11/20/2021 9:21 AM CDT [facility] RBC 3.90 3.80 - 5.40 x10E12/L 11/20/2021 9:21 AM CDT [facility] Hemoglobin 10.5(L) 12.0 - 17.6 gm/dL 11/20/2021 9:21 AM CDT [facility] Hematocrit 33.0(L) 35.2 - 51.7 % 11/20/2021 9:21 AM CDT [facility] MCV 84.6 80.7 - 98.3 fl 11/20/2021 9:21 AM CDT [facility] MCH 26.9 26.7 - 34.0 pg 11/20/2021 9:21 AM CDT [facility] MCHC 31.8 30.8 - 35.9 gm/dL 11/20/2021 9:21 AM CDT [facility] Platelet Count 475(H) 153 - 416 x10E9/L 11/20/2021 9:21 AM CDT [facility] RDW-CV 13.2 12.1 - 14.9 % 11/20/2021 9:21 AM CDT [facility] MPV 10.1 9.4 - 12.9 fl 11/20/2021 9:21 AM CDT [facility] Neutrophils % 59.0 44.0 - 73.0 % 11/20/2021 9:21 AM CDT [facility] Lymphocytes % 26.7 20.0 - 43.0 % 11/20/2021 9:21 AM CDT [facility] Monocytes % 11.4 5.0 - 13.0 % 11/20/2021 9:21 AM CDT [facility] Eosinophils % 2.4 0.0 - 6.0 % 11/20/2021 9:21 AM CDT [facility] Basophils % 0.4 0.0 - 2.0 % 11/20/2021 9:21 AM CDT [facility] Immature Granulocytes 0.1 0 - 1 % 11/20/2021 9:21 AM CDT [facility] Neutrophil Absolute 4.70 2.01 - 7.14 x10E9/L 11/20/2021 9:21 AM CDT [facility] Lymphocytes Absolute 2.13 1.07 - 3.94 x10E9/L 11/20/2021 9:21 AM CDT [facility] Monocytes Absolute 0.91 0.26 - 1.07 x10E9/L 11/20/2021 9:21 AM CDT [facility] Eosinophils Absolute 0.19 0 - 0.47 x10E9/L 11/20/2021 9:21 AM CDT [facility] Basophils Absolute 0.03 0 - 0.08 x10E9/L 11/20/2021 9:21 AM T [facility] Immature Granulocytes Absolute 0.01 0.00 - 0.06 x10E9/L 11/20/2021 9:21 AM T [facility] nRBC Auto 0 /100 WBC 11/20/2021 9:21 AM T [facility] Blood BLOOD SPECIMEN / Unknown Venipuncture / Unknown 11/20/2021 3:10 AM CDT 11/20/2021 8:55 AM CDT Alverto Virgen MD LAB - HEMATOLOGY ORDERABLES Performing Organization Address City/State/[facility] Co de Phone Number [facility] [address] [place] [address] documented in this encounter Visit Diagnoses Not on filedocumented in this encounter Care Teams Recovery Assistant Relationship Specialty Start Date End Date Pepe Martel MD [address] [place] [id number] PCP - General 08/14/16 documented as of this encounter
--- OUTSIDE RECORDS SUMMARY | 2024-05-23 03:19 | XMS_ITS | Encounter Summary ---
Author Organization [facility] Address [address] [place] [address] Care Team Providers Care Sas Programmer Remote Name Role Phone Pepe Martel MD Primary Care Provider [phone] Encounter Details Date Type Department Care Team (Late st Contact Info) Description 09/22/2021 Lab Requisition [facility] [address] [place] [address] [place] [address] [place] [address] Social History Tobacco Use Types Packs/Day Years [...] Diagnosis Comments CBC W AUTO DIFFERENTIAL STAT 09/22/2021 3:40 AM CDT COMPREHENSIVE METABOLIC PANEL STAT 09/22/2021 3:40 AM CDT documented in this encounter Results * (ABNORMAL) CBC WITH DIFFERENTIAL (09/22/2021 3:40 AM CDT) WBC 7.4 4.4 - 10.7 x10E9/L 09/22/2021 8:49 AM CDT [facility] WBC Corrected 09/22/2021 8:49 AM CDT [facility] RBC 4.33 3.80 - 5.40 x10E12/L 09/22/2021 8:49 AM CDT [facility] Hemoglobin 11.5(L) 12.0 - 17.6 gm/dL 09/22/2021 8:49 AM CDT [facility] Hematocrit 37.7 35.2 - 51.7 % 09/22/2021 8:49 AM CDT [facility] MCV 87.1 80.7 - 98.3 fl 09/22/2021 8:49 AM CDT [facility] MCH 26.6(L) 26.7 - 34.0 pg 09/22/2021 8:49 AM CDT [facility] MCHC 30.5(L) 30.8 - 35.9 gm/dL 09/22/2021 8:49 AM CDT [facility] Platelet Count 401 153 - 416 x10E9/L 09/22/2021 8:49 AM CDT [facility] RDW-CV 13.6 12.1 - 14.9 % 09/22/2021 8:49 AM CDT [facility] MPV 10.9 9.4 - 12.9 fl 09/22/2021 8:49 AM CDT [facility] Neutrophils % 60.7 44.0 - 73.0 % 09/22/2021 8:49 AM CDT [facility] Lymphocytes % 26.0 20.0 - 43.0 % 09/22/2021 8:49 AM CDT [facility] Monocytes % 8.7 5.0 - 13.0 % 09/22/2021 8:49 AM CDT [facility] Eosinophils % 3.8 0.0 - 6.0 % 09/22/2021 8:49 AM CDT [facility] Basophils % 0.5 0.0 - 2.0 % 09/22/2021 8:49 AM CDT [facility] Immature Granulocytes 0.3 0 - 1 % 09/22/2021 8:49 AM CDT [facility] Neutrophil Absolute 4.46 2.01 - 7.14 x10E9/L 09/22/2021 8:49 AM CDT [facility] Lymphocytes Absolute 1.91 1.07 - 3.94 x10E9/L 09/22/2021 8:49 AM CDT [facility] Monocytes Absolute 0.64 0.26 - 1.07 x10E9/L 09/22/2021 8:49 AM CDT [facility] Eosinophils Absolute 0.28 0 - 0.47 x10E9/L 09/22/2021 8:49 AM CDT [facility] Basophils Absolute 0.04 0 - 0.08 x10E9/L 09/22/2021 8:49 AM CDT [facility] Immature Granulocytes Absolute 0.02 0.00 - 0.06 x10E9/L 09/22/2021 8:49 AM CDT [facility] nRBC Auto 0 /100 WBC 09/22/2021 8:49 AM T [facility] Blood BLOOD SPECIMEN / Unknown Venipuncture / Unknown 09/22/2021 3:40 AM CDT 09/22/2021 8:29 AM CDT Vinicio Quintanilla MD LAB - HEMATOLOGY ORD ERABLES [facility] [address] [place] [address] * (ABNORMAL) COMPREHENSIVE METABOLIC PANEL (09/22/2021 3:40 AM CDT) [facility] Glucose 118(H) 70 - 105 mg/dL 09/22/2021 9:06 AM CDT [facility] Sodium 146(H) 136 - 145 mmol/L 09/22/2021 9:06 AM [facility] Potassium 4.6 3.5 - 5.1 mmol/L 09/22/2021 9:06 AM [facility] Chloride 106 98 - 107 mmol/L 09/22/2021 9:06 AM [facility] CO2 27 23 - 31 mmol/L 09/22/2021 9:06 AM [facility] Calcium 10.5(H) 8.4 - 10.4 mg/dL 09/22/2021 9:06 AM [facility] Anion Gap 13 8 - 18 mmol/L 09/22/2021 9:06 AM [facility] BUN 34(H) 8.9 - 20.6 mg/dL 09/22/2021 9:06 AM [facility] Creatinine 1.04 0.72 - 1.25 mg/dL 09/22/2021 9:06 AM [facility] Alkaline Phosphatase 161(H) 40 - 150 U/L 09/22/2021 9:06 AM [facility] ALT 27 0 - 61 U/L 09/22/2021 9:06 AM [facility] AST 13 5 - 34 U/L 09/22/2021 9:06 AM [facility] Protein Total 7.9 6.4 - 8.3 gm/dL 09/22/2021 9:06 AM [facility] Albumin 3.8 3.5 - 5.2 gm/dL 09/22/2021 9:06 AM [facility] Bilirubin Total 0.3 0.2 - 1.2 mg/dL 09/22/2021 9:06 AM [facility] eGFR by CKD-EPI >90 >=90 mL/min/1.7 3 m2 09/22/2021 9:06 AM [facility] Blood BLOOD SPECIMEN / Unknown Venipuncture / Unknown 09/22/2021 3:40 AM CDT 09/22/2021 8:29 AM T [facility] - 09/22/2021 9:06 AM [facility] eGFR result was calculated using the updated CKD-EPI Creatinine Equations (2020). Prior to go live 2021 the eGFR was calculated using the MDRD calculation. Please note Reference Range change. Vinicio Quintanilla MD LAB - CHEMISTRY [facility]SE [facility]RIQUE VEL[facility] Organization Address City/State/ZIP Co de Phone Number [facility] [address] [place] [address] documented in this encounter Visit Diagnoses Not on filedocumented in this encounter Care Teams Sas Programmer Remote Relationship Specialty Start Date End Date Pepe Martel MD [address] [place] [id number] PCP - General 08/14/16 documented as of this encounter
--- OUTSIDE RECORDS SUMMARY | 2024-05-23 03:19 | XMS_ITS | Encounter Summary ---
Author Organization [facility] Address [address] [place] [address] Care Team Providers Care Residential Manager Name Role Phone Pepe Maretl MD Primary Care Provider [phone] Encounter Details Date Type Department Care Team (Late st Contact Info) Description 11/27/2021 Lab Requisition [facility] [address] [place] [address] Alverto Virgen MD [address] [place] [address] [place] [address] Social History Tobacco Use Types Packs/Day Years [...] Diagnosis Comments CBC W AUTO DIFFERENTIAL STAT 11/27/2021 3:20 AM CDT COMPREHENSIVE METABOLIC PANEL STAT 11/27/2021 3:20 AM CDT documented in this encounter Results * (ABNORMAL) COMPREHENSIVE METABOLIC PANEL (11/27/2021 3:20 AM CDT) Glucose 91 70 - 105 mg/dL 11/27/2021 12:39 PM CDT [facility] Sodium 136 136 - 145 mmol/L 11/27/2021 12:39 PM CDT [facility] Potassium 4.8 3.5 - 5.1 mmol/L 11/27/2021 12:39 PM CDT [facility] Chloride 98 98 - 107 mmol/L 11/27/2021 12:39 PM CDT [facility] CO2 24 23 - 31 mmol/L 11/27/2021 12:39 PM CDT [facility] Calcium 10.4 8.4 - 10.4 mg/dL 11/27/2021 12:39 PM CDT [facility] Anion Gap 14 8 - 18 mmol/L 11/27/2021 12:39 PM CDT [facility] BUN 30(H) 8.9 - 20.6 mg/dL 11/27/2021 12:39 PM CDT [facility] Creatinine 0.98 0.72 - 1.25 mg/dL 11/27/2021 12:39 PM CDT [facility] Alkaline Phosphatase 135 40 - 150 U/L 11/27/2021 12:39 PM CDT [facility] ALT 20 0 - 61 U/L 11/27/2021 12:39 PM CDT [facility] AST 13 5 - 34 U/L 11/27/2021 12:39 PM CDT [facility] Protein Total 7.9 6.4 - 8.3 gm/dL 11/27/2021 12:39 PM CDT [facility] Albumin 3.9 3.5 - 5.2 gm/dL 11/27/2021 12:39 PM CDT [facility] Bilirubin Total 0.2 0.2 - 1.2 mg/dL 11/27/2021 12:39 PM CDT [facility] eGFR by CKD-EPI >90 >=90 mL/min/1.7 3 m2 11/27/2021 12:39 PM CDT [facility] Blood BLOOD SPECIMEN / Unknown Venipuncture / Unknown 11/27/2021 3:20 AM CDT 11/27/2021 11:38 AM CDT Alverto Virgen MD LAB - CHEMISTRY O RDERABLES [facility] [address] [place] [address] * (ABNORMAL) CBC WITH DIFFERENTIAL (11/27/2021 3:20 AM CDT) WBC 7.8 4.4 - 10.7 x10E9/L 11/27/2021 12:20 PM CDT [facility] WBC Corrected 11/27/2021 12:20 PM CDT [facility] RBC 4.28 3.80 - 5.40 x10E12/L 11/27/2021 12:20 PM CDT [facility] Hemoglobin 11.3(L) 12.0 - 17.6 gm/dL 11/27/2021 12:20 PM CDT [facility] Hematocrit 36.7 35.2 - 51.7 % 11/27/2021 12:20 PM CDT [facility] MCV 85.7 80.7 - 98.3 fl 11/27/2021 12:20 PM CDT [facility] MCH 26.4(L) 26.7 - 34.0 pg 11/27/2021 12:20 PM CDT [facility] MCHC 30.8 30.8 - 35.9 gm/dL 11/27/2021 12:20 PM CDT [facility] Platelet Count 490(H) 153 - 416 x10E9/L 11/27/2021 12:20 PM CDT [facility] RDW-CV 13.2 12.1 - 14.9 % 11/27/2021 12:20 PM CDT [facility] MPV 10.1 9.4 - 12.9 fl 11/27/2021 12:20 PM CDT [facility] Neutrophils % 60.5 44.0 - 73.0 % 11/27/2021 12:20 PM CDT [facility] Lymphocytes % 25.9 20.0 - 43.0 % 11/27/2021 12:20 PM CDT [facility] Monocytes % 10.9 5.0 - 13.0 % 11/27/2021 12:20 PM CDT [facility] Eosinophils % 2.3 0.0 - 6.0 % 11/27/2021 12:20 PM CDT [facility] Basophils % 0.3 0.0 - 2.0 % 11/27/2021 12:20 PM CDT [facility] Immature Granulocytes 0.1 0 - 1 % 11/27/2021 12:20 PM CDT [facility] Neutrophil Absolute 4.73 2.01 - 7.14 x10E9/L 11/27/2021 12:20 PM CDT [facility] Lymphocytes Absolute 2.02 1.07 - 3.94 x10E9/L 11/27/2021 12:20 PM CDT [facility] Monocytes Absolute 0.85 0.26 - 1.07 x10E9/L 11/27/2021 12:20 PM CDT [facility] Eosinophils Absolute 0.18 0 - 0.47 x10E9/L 11/27/2021 12:20 PM CDT [facility] Basophils Absolute 0.02 0 - 0.08 x10E9/L 11/27/2021 12:20 PM CDT [facility] Immature Granulocytes Absolute 0.01 0.00 - 0.06 x10E9/L 11/27/2021 12:20 PM CDT [facility] nRBC Auto 0 /100 WBC 11/27/2021 12:20 PM CDT [facility] Blood BLOOD SPECIMEN / Unknown Venipuncture / Unknown 11/27/2021 3:20 AM CDT 11/27/2021 11:38 AM CDT Alverto Virgen MD LAB - HEMATOLOGY ORDERABLES [facility] [address] [place] [address] documented in this encounter Visit Diagnoses Not on filedocumented in this encounter Care Teams Residential Manager Relationship Specialty Start Date End Date Pepe Martel MD [address] [place] [id number] PCP - General 08/14/16 documented as of this encounter
--- OUTSIDE RECORDS SUMMARY | 2024-05-23 03:19 | XMS_ITS | Encounter Summary ---
Author Organization [facility] Address [address] [place] [address] Care Team Providers Care Clinic Specialist Name Role Phone Pepe Martel MD Primary Care Provider [phone] Encounter Details Date Type Department Care Team (Late st Contact Info) Description 09/25/2021 Lab Requisition [facility] [address] [place] [address] [place] [address] [place] [address] Social History Tobacco Use Types Packs/Day Years [...] Diagnosis Comments CBC W AUTO DIFFERENTIAL STAT 09/25/2021 4:00 AM CDT COMPREHENSIVE METABOLIC PANEL STAT 09/25/2021 4:00 AM CDT documented in this encounter Results * (ABNORMAL) CBC WITH DIFFERENTIAL (09/25/2021 4:00 AM CDT) WBC 6.7 4.4 - 10.7 x10E9/L 09/25/2021 10:10 AM CDT [facility] WBC Corrected 09/25/2021 10:10 AM CDT [facility] RBC 4.36 3.80 - 5.40 x10E12/L 09/25/2021 10:10 AM CDT [facility] Hemoglobin 11.5(L) 12.0 - 17.6 gm/dL 09/25/2021 10:10 AM CDT [facility] Hematocrit 38.7 35.2 - 51.7 % 09/25/2021 10:10 AM CDT [facility] MCV 88.8 80.7 - 98.3 fl 09/25/2021 10:10 AM CDT [facility] MCH 26.4(L) 26.7 - 34.0 pg 09/25/2021 10:10 AM CDT [facility] MCHC 29.7(L) 30.8 - 35.9 gm/dL 09/25/2021 10:10 AM CDT [facility] Platelet Count 400 153 - 416 x10E9/L 09/25/2021 10:10 AM CDT [facility] RDW-CV 13.6 12.1 - 14.9 % 09/25/2021 10:10 AM CDT [facility] MPV 10.8 9.4 - 12.9 fl 09/25/2021 10:10 AM CDT [facility] Neutrophils % 54.5 44.0 - 73.0 % 09/25/2021 10:10 AM CDT [facility] Lymphocytes % 31.1 20.0 - 43.0 % 09/25/2021 10:10 AM CDT [facility] Monocytes % 9.3 5.0 - 13.0 % 09/25/2021 10:10 AM CDT [facility] Eosinophils % 4.6 0.0 - 6.0 % 09/25/2021 10:10 AM CDT [facility] Basophils % 0.4 0.0 - 2.0 % 09/25/2021 10:10 AM CDT [facility] Immature Granulocytes 0.1 0 - 1 % 09/25/2021 10:10 AM CDT [facility] Neutrophil Absolute 3.63 2.01 - 7.14 x10E9/L 09/25/2021 10:10 AM CDT [facility] Lymphocytes Absolute 2.08 1.07 - 3.94 x10E9/L 09/25/2021 10:10 AM CDT [facility] Monocytes Absolute 0.62 0.26 - 1.07 x10E9/L 09/25/2021 10:10 AM CDT [facility] Eosinophils Absolute 0.31 0 - 0.47 x10E9/L 09/25/2021 10:10 AM CDT [facility] Basophils Absolute 0.03 0 - 0.08 x10E9/L 09/25/2021 10:10 AM CDT [facility] Immature Granulocytes Absolute 0.01 0.00 - 0.06 x10E9/L 09/25/2021 10:10 AM CDT [facility] nRBC Auto 0 /100 WBC 09/25/2021 10:10 AM T [facility] Blood BLOOD SPECIMEN / Unknown Venipuncture / Unknown 09/25/2021 4:00 AM CDT 09/25/2021 9:31 AM CDT Vinicio Quintanilla MD LAB - HEMATOLOGY ORD ERABLES [facility] [address] [place] [address] * (ABNORMAL) COMPREHENSIVE METABOLIC PANEL (09/25/2021 4:00 AM CDT) [facility] Glucose 120(H) 70 - 105 mg/dL 09/25/2021 10:34 AM CDT [facility] Sodium 143 136 - 145 mmol/L 09/25/2021 10:34 AM CDT [facility] Potassium 4.3 3.5 - 5.1 mmol/L 09/25/2021 10:34 AM CDT [facility] Chloride 105 98 - 107 mmol/L 09/25/2021 10:34 AM CDT [facility] CO2 25 23 - 31 mmol/L 09/25/2021 10:34 AM CDT [facility] Calcium 9.9 8.4 - 10.4 mg/dL 09/25/2021 10:34 AM CDT [facility] Anion Gap 13 8 - 18 mmol/L 09/25/2021 10:34 AM CDT [facility] BUN 36(H) 8.9 - 20.6 mg/dL 09/25/2021 10:[facility] Creatinine 1.06 0.72 - 1.25 mg/dL 09/25/2021 10:34 AM [facility] Alkaline Phosphatase 140 40 - 150 U/L 09/25/2021 10:34 AM CDT [facility] ALT 29 0 - 61 U/L 09/25/2021 10:34 AM CDT [facility] AST 18 5 - 34 U/L 09/25/2021 10:34 AM [facility] Protein Total 7.5 6.4 - 8.3 gm/dL 09/25/2021 10:34 AM [facility] Albumin 3.5 3.5 - 5.2 gm/dL 09/25/2021 10:34 AM [facility] Bilirubin Total 0.2 0.2 - 1.2 mg/dL 09/25/2021 10:34 AM [facility] eGFR by CKD-EPI >90 >=90 mL/min/1.7 3 m2 09/25/2021 10:34 AM [facility] Blood BLOOD SPECIMEN / Unknown Venipuncture / Unknown 09/25/2021 4:00 AM CDT 09/25/2021 9:31 AM CDT Vinicio Quintanilla MD LAB - CHEMISTRY JOSE ENRIQUE VELA [facility] Organization Address City/State/ZIP Co de Phone Number [facility] [address] [place] [address] documented in this encounter Visit Diagnoses Not on filedocumented in this encounter Care Teams Clinic Specialist Relationship Specialty Start Date End Date Pepe Martel MD [address] [place] [address] PCP - General 08/14/16 documented as of this encounter
--- OUTSIDE RECORDS SUMMARY | 2024-05-23 03:19 | XMS_ITS | Encounter Summary ---
Author Organization [facility] Address [address] [place] [address] Care Team Providers Care Plastic Card Grader Cardroom Name Role Phone Pepe Martel MD Primary Care Provider [phone] Encounter Details Date Type Department Care Team (Late st Contact Info) Description 09/15/2021 Lab Requisition [facility] [address] [place] [address] [place] [address] [place] [address] Social History Tobacco Use Types Packs/Day Years [...] Diagnosis Comments CBC W AUTO DIFFERENTIAL STAT 09/15/2021 4:30 AM CDT COMPREHENSIVE METABOLIC PANEL STAT 09/15/2021 4:30 AM CDT documented in this encounter Results * (ABNORMAL) CBC WITH DIFFERENTIAL (09/15/2021 4:30 AM CDT) WBC 8.9 4.4 - 10.7 x10E9/L 09/15/2021 10:35 AM CDT [facility] WBC Corrected 09/15/2021 10:35 AM CDT [facility] RBC 4.18 3.80 - 5.40 x10E12/L 09/15/2021 10:35 AM CDT [facility] Hemoglobin 11.1(L) 12.0 - 17.6 gm/dL 09/15/2021 10:35 AM CDT [facility] Hematocrit 36.2 35.2 - 51.7 % 09/15/2021 10:35 AM CDT [facility] MCV 86.6 80.7 - 98.3 fl 09/15/2021 10:35 AM CDT [facility] MCH 26.6(L) 26.7 - 34.0 pg 09/15/2021 10:35 AM CDT [facility] MCHC 30.7(L) 30.8 - 35.9 gm/dL 09/15/2021 10:35 AM CDT [facility] Platelet Count 478(H) 153 - 416 x10E9/L 09/15/2021 10:35 AM CDT [facility] RDW-CV 14.2 12.1 - 14.9 % 09/15/2021 10:35 AM CDT [facility] MPV 10.3 9.4 - 12.9 fl 09/15/2021 10:35 AM CDT [facility] Neutrophils % 65.9 44.0 - 73.0 % 09/15/2021 10:35 AM CDT [facility] Lymphocytes % 21.5 20.0 - 43.0 % 09/15/2021 10:35 AM CDT [facility] Monocytes % 9.4 5.0 - 13.0 % 09/15/2021 10:35 AM CDT [facility] Eosinophils % 2.6 0.0 - 6.0 % 09/15/2021 10:35 AM CDT [facility] Basophils % 0.4 0.0 - 2.0 % 09/15/2021 10:35 AM CDT [facility] Immature Granulocytes 0.2 0 - 1 % 09/15/2021 10:35 AM CDT [facility] Neutrophil Absolute 5.85 2.01 - 7.14 x10E9/L 09/15/2021 10:35 AM CDT [facility] Lymphocytes Absolute 1.91 1.07 - 3.94 x10E9/L 09/15/2021 10:35 AM CDT [facility] Monocytes Absolute 0.84 0.26 - 1.07 x10E9/L 09/15/2021 10:35 AM CDT [facility] Eosinophils Absolute 0.23 0 - 0.47 x10E9/L 09/15/2021 10:35 AM CDT [facility] Basophils Absolute 0.04 0 - 0.08 x10E9/L 09/15/2021 10:35 AM CDT [facility] Immature Granulocytes Absolute 0.02 0.00 - 0.06 x10E9/L 09/15/2021 10:35 AM CDT [facility] nRBC Auto 0 /100 WBC 09/15/2021 10:35 AM T [facility] Blood BLOOD SPECIMEN / Unknown Venipuncture / Unknown 09/15/2021 4:30 AM CDT 09/15/2021 8:22 AM CDT Vinicio Quintanilla MD LAB - HEMATOLOGY ORD ERABLES [facility] [address] [place] [address] * (ABNORMAL) COMPREHENSIVE METABOLIC PANEL (09/15/2021 4:30 AM CDT) [facility] Glucose 99 70 - 105 mg/dL 09/15/2021 10:51 AM CDT [facility] Sodium 142 136 - 145 mmol/L 09/15/2021 10:51 AM CDT [facility] Potassium 4.5 3.5 - 5.1 mmol/L 09/15/2021 10:51 AM CDT [facility] Chloride 103 98 - 107 mmol/L 09/15/2021 10:51 AM CDT [facility] CO2 28 23 - 31 mmol/L 09/15/2021 10:51 AM CDT [facility] Calcium 10.3 8.4 - 10.4 mg/dL 09/15/2021 10:51 AM CDT [facility] Anion Gap 11 8 - 18 mmol/L 09/15/2021 10:51 AM CDT [facility] BUN 29(H) 8.9 - 20.6 mg/dL 09/15/2021 10:51 AM CDT [facility] Creatinine 1.01 0.72 - 1.25 mg/dL 09/15/2021 10:51 AM CDT [facility] Alkaline Phosphatase 155(H) 40 - 150 U/L 09/15/2021 10:51 AM CDT [facility] ALT 24 0 - 61 U/L 09/15/2021 10:51 AM CDT [facility] AST 14 5 - 34 U/L 09/15/2021 10:51 AM CDT [facility] Protein Total 7.7 6.4 - 8.3 gm/dL 09/15/2021 10:51 AM CDT [facility] Albumin 3.8 3.5 - 5.2 gm/dL 09/15/2021 10:51 AM T [facility] Bilirubin Total 0.2 0.2 - 1.2 mg/dL 09/15/2021 10:51 AM CDT [facility] eGFR by CKD-EPI >90 >=90 mL/min/1.7 3 m2 09/15/2021 10:51 AM T [facility] Blood BLOOD SPECIMEN / Unknown Venipuncture / Unknown 09/15/2021 4:30 AM CDT 09/15/2021 8:22 AM CDT [facility] - 09/15/2021 10:51 AM CDT eGFR result was calculated using the updated CKD-EPI Creatinine Equations (2020). Prior to go live 2021 the eGFR was calculated using the MDRD calculation. Please note Reference Range change. Vinicio Quintanilla MD LAB - CHEMISTRY JOSE ENRIQUE VELA [facility] Organization Address City/State/ZIP Co de Phone Number [facility] [address] [place] [address] documented in this encounter Visit Diagnoses Not on filedocumented in this encounter Care Teams Plastic Card Grader Cardroom Relationship Specialty Start Date End Date Pepe Martel MD [address] [place] [address] [address] [place] [address] PCP - General 08/14/16 documented as of this encounter
--- OUTSIDE RECORDS SUMMARY | 2024-05-23 03:19 | XMS_ITS | Encounter Summary ---
Author Organization [facility] Address [address] [address] Care Team Providers Care Spray Painter Name Role Phone Pepe Martel MD Primary Care Provider [phone] Encounter Details Date Type Department Care Team (Late st Contact Info) Description 07/31/2021 Lab Requisition [facility] [address] [place] [address] [place] [address] [place] [address] Social History Tobacco Use Types Packs/Day Years [...] Diagnosis Comments CBC W AUTO DIFFERENTIAL STAT 07/31/2021 2:50 AM CDT COMPREHENSIVE METABOLIC PANEL STAT 07/31/2021 2:50 AM CDT documented in this encounter Results * (ABNORMAL) CBC WITH DIFFERENTIAL (07/31/2021 2:50 AM CDT) WBC 9.1 4.4 - 10.7 x10E9/L 07/31/2021 9:10 AM CDT [facility] WBC Corrected 07/31/2021 9:10 AM CDT [facility] RBC 3.96 3.80 - 5.40 x10E12/L 07/31/2021 9:10 AM CDT [facility] Hemoglobin 10.4(L) 12.0 - 17.6 gm/dL 07/31/2021 9:10 AM CDT [facility] Hematocrit 33.9(L) 35.2 - 51.7 % 07/31/2021 9:10 AM CDT [facility] MCV 85.6 80.7 - 98.3 fl 07/31/2021 9:10 AM CDT [facility] MCH 26.3(L) 26.7 - 34.0 pg 07/31/2021 9:10 AM CDT [facility] MCHC 30.7(L) 30.8 - 35.9 gm/dL 07/31/2021 9:10 AM CDT [facility] Platelet Count 467(H) 153 - 416 x10E9/L 07/31/2021 9:10 AM CDT [facility] RDW-CV 14.7 12.1 - 14.9 % 07/31/2021 9:10 AM CDT [facility] MPV 10.3 9.4 - 12.9 fl 07/31/2021 9:10 AM CDT [facility] Neutrophils % 71.3 44.0 - 73.0 % 07/31/2021 9:10 AM CDT [facility] Lymphocytes % 11.8(L) 20.0 - 43.0 % 07/31/2021 9:10 AM CDT [facility] Monocytes % 8.8 5.0 - 13.0 % 07/31/2021 9:10 AM CDT [facility] Eosinophils % 7.2(H) 0.0 - 6.0 % 07/31/2021 9:10 AM CDT [facility] Basophils % 0.6 0.0 - 2.0 % 07/31/2021 9:10 AM CDT [facility] Immature Granulocytes 0.3 0 - 1 % 07/31/2021 9:10 AM CDT [facility] Neutrophil Absolute 6.48 2.01 - 7.14 x10E9/L 07/31/2021 9:10 AM CDT [facility] Lymphocytes Absolute 1.07 1.07 - 3.94 x10E9/L 07/31/2021 9:10 AM CDT [facility] Monocytes Absolute 0.80 0.26 - 1.07 x10E9/L 07/31/2021 9:10 AM CDT [facility] Eosinophils Absolute 0.65(H) 0 - 0.47 x10E9/L 07/31/2021 9:10 AM CDT [facility] Basophils Absolute 0.05 0 - 0.08 x10E9/L 07/31/2021 9:10 AM CDT [facility] Immature Granulocytes Absolute 0.03 0.00 - 0.06 x10E9/L 07/31/2021 9:10 AM CDT [facility] nRBC Auto 0 /100 WBC 07/31/2021 9:10 AM CDT [facility] Blood BLOOD SPECIMEN / Unknown Venipuncture / Unknown 07/31/2021 2:50 AM CDT 07/31/2021 8:26 AM CDT Vinicio Quintanilla MD LAB - HEMATOLOGY ORD ERABLES [facility] [address] [place] [address] * (ABNORMAL) COMPREHENSIVE METABOLIC PANEL (07/31/2021 2:50 AM CDT) Glucose 138(H) 70 - 105 mg/dL 07/31/2021 8:59 AM CDT [facility] Sodium 145 136 - 145 mmol/L 07/31/2021 8:59 AM CDT [facility] Potassium 4.6 3.5 - 5.1 mmol/L 07/31/2021 8:59 AM CDT [facility] Chloride 108(H) 98 - 107 mmol/L 07/31/2021 8:59 AM CDT [facility] CO2 23 23 - 31 mmol/L 07/31/2021 8:59 AM CDT [facility] Calcium 9.8 8.4 - 10.4 mg/dL 07/31/2021 8:59 AM CDT [facility] Anion Gap 14 8 - 18 mmol/L 07/31/2021 8:59 AM CDT [facility] BUN 33(H) 8.9 - 20.6 mg/dL 07/31/2021 8:59 AM CDT [facility] Creatinine 1.17 0.72 - 1.25 mg/dL 07/31/2021 8:59 AM CDT [facility] Alkaline Phosphatase 155(H) 40 - 150 U/L 07/31/2021 8:59 AM CDT [facility] ALT 26 0 - 61 U/L 07/31/2021 8:59 AM CDT [facility] AST 14 5 - 34 U/L 07/31/2021 8:59 AM CDT [facility] Protein Total 7.3 6.4 - 8.3 gm/dL 07/31/2021 8:59 AM CDT [facility] Albumin 3.4(L) 3.5 - 5.2 gm/dL 07/31/2021 8:59 AM CDT [facility] Bilirubin Total 0.3 0.2 - 1.2 mg/dL 07/31/2021 8:59 AM CDT [facility] eGFR by CKD-EPI 83(L) >=90 mL/min/1.7 3 m2 07/31/2021 8:59 AM T [facility] Blood BLOOD SPECIMEN / Unknown Venipuncture / Unknown 07/31/2021 2:50 AM CDT 07/31/2021 8:26 AM CDT Narrative [facility] - 07/31/2021 8:59 AM CDT eGFR result was calculated using the updated CKD-EPI Creatinine Equations (2020). Prior to go live 2021 the eGFR was calculated using the MDRD calculation. Please note Reference Range change. Vinicio Quintanilla MD LAB - CHEMISTRY [facility] Organization Address City/State/ZIP Co de Phone Number [facility] [address] [place] [address] documented in this encounter Visit Diagnoses Not on filedocumented in this encounter Care Teams Spray Painter Relationship Specialty Start Date End Date Pepe Martel MD [address] [place] [address] [phone] PCP - General 08/14/16 documented as of this encounter
--- OUTSIDE RECORDS SUMMARY | 2024-05-23 03:20 | XMS_ITS | Encounter Summary ---
Author Organization [facility] Health Address [address] [facility] [place] [address] Care Team Providers Care Commercial Stripper Name Role Phone Pepe Martel MD Primary Care Provider [phone] Encounter Details Date Type Department Care Team (Late st Contact Info) Description 05/22/2021 Lab Requisition [facility] [address] [place] [address] Lamberto De La Cruz MD [address] [facility] [address] [place] [address] Social History Tobacco Use Types Packs/Day Years [...] Associated Diagnosis Comments COMPREHENSIVE METABOLIC PANEL STAT 05/22/2021 4:26 AM CARPENTRY SPECIALIST VANCOMYCIN LEVEL TROUGH STAT 05/22/2021 4:26 AM CARPENTRY SPECIALIST documented in this encounter Results * (ABNORMAL) COMPREHENSIVE METABOLIC PANEL (05/22/2021 4:26 AM CARPENTRY SPECIALIST) Glucose 82 70 - 105 mg/dL 05/22/2021 10:29 AM [facility] Sodium 137 136 - 145 mmol/L 05/22/2021 10:29 AM [facility] Potassium 4.7 3.5 - 5.1 mmol/L 05/22/2021 10:29 AM [facility] Chloride 105 98 - 107 mmol/L 05/22/2021 10:29 AM [facility] CO2 23 23 - 31 mmol/L 05/22/2021 10:29 AM [facility] Calcium 9.0 8.4 - 10.4 mg/dL 05/22/2021 10:29 AM [facility] Anion Gap 9 8 - 18 mmol/L 05/22/2021 10:29 AM [facility] BUN 28(H) 8.9 - 20.6 mg/dL 05/22/2021 10:29 AM [facility] Creatinine 0.83 0.72 - 1.25 mg/dL 05/22/2021 10:29 AM [facility] Alkaline Phosphatase 79 40 - 150 U/L 05/22/2021 10:29 AM [facility] ALT 25 0 - 61 U/L 05/22/2021 10:29 AM [facility] AST 18 5 - 34 U/L 05/22/2021 10:29 AM [facility] Protein Total 7.0 6.4 - 8.3 gm/dL 05/22/2021 10:29 AM [facility] Albumin 3.5 3.5 - 5.2 gm/dL 05/22/2021 10:29 AM [facility] Bilirubin Total 0.2 0.2 - 1.2 mg/dL 05/22/2021 10:29 AM CARPENTRY SPECIALIST [facility] eGFR by MDRD >60 >60 mL/min/1.7 3m2 05/22/2021 10:29 AM CARPENTRY SPECIALIST [facility] eGFR by MDRD >60 >60 mL/min/1.7 3m2 05/22/2021 10:29 AM CARPENTRY SPECIALIST [facility] Blood BLOOD SPECIMEN / Unknown Venipuncture / Unknown 05/22/2021 4:26 AM CARPENTRY SPECIALIST 05/22/2021 9:05 AM CARPENTRY SPECIALIST Lamberto De La Cruz MD LAB - CHEMISTRY JOSE ENRIQUE VELA Performing Organization Address City/[facility]/ZIP Co de Phone Number [facility] [address] [place] [address] * VANCOMYCIN LEVEL TROUGH (05/22/2021 4:26 AM CARPENTRY SPECIALIST) Vancomycin Trough 15.5 10.0 - 20.0 ug/mL 05/22/2021 9:41 AM CARPENTRY SPECIALIST [facility] Blood BLOOD SPECIMEN / Unknown Venipuncture / Unknown 05/22/2021 4:26 AM CARPENTRY SPECIALIST 05/22/2021 9:05 AM CARPENTRY SPECIALIST Lamberto De La Cruz MD LAB - CHEMISTRY JOSE ENRIQUE VELA Performing Organization Address City/[facility]/ZIP Co de Phone Number [facility] [address] [place] [address] documented in this encounter Visit Diagnoses Not on filedocumented in this encounter Care Teams Commercial Stripper Relationship Specialty Start Date End Date Pepe Martel MD [address] [facility] [address] [place] [address] PCP - General 08/14/16 documented as of this encounter
--- OUTSIDE RECORDS SUMMARY | 2024-05-23 03:20 | XMS_ITS | Encounter Summary ---
Author Organization [facility] Health Address [address] [place] [address] Care Team Providers Care Audiovisual Lead Technician Name Role Phone Pepe Martel MD Primary Care Provider [phone] Encounter Details Date Type Department Care Team (Late st Contact Info) Description 05/05/2021 Lab Requisition [facility] [address] [place] [address] Lamberto De La Crzu MD [address] [facility] [address] [place] [address] Social History Tobacco Use Types [...] Diagnosis Comments CBC W AUTO DIFFERENTIAL STAT 05/05/2021 5:32 AM BIOFUELS PLANT CONSTRUCTION WORKER COMPREHENSIVE METABOLIC PANEL STAT 05/05/2021 5:32 AM B[employer]FU[employer]S PLANT CONSTRUCTION WORKER documented in this encounter Results * (ABNORMAL) COMPREHENSIVE METABOLIC PANEL (05/05/2021 5:32 AM B[employer]FU[employer] PLANT CONSTRUCTION WORKER) Glucose 119(H) 70 - 105 mg/dL 05/05/2021 1:08 PM [employer]FU[employer] PLANT CONSTRUCTION WORKER [facility] Sodium 137 136 - 145 mmol/L 05/05/2021 1:08 PM [employer]FU[employer] PL[employer] CONSTRUCTION WORKER [facility] Potassium 4.6 3.5 - 5.1 mmol/L 05/05/2021 1:08 PM [employer] CONSTRUCTION WORKER [facility] Chloride 100 98 - 107 mmol/L 05/05/2021 1:08 PM [employer] PLANT CONSTRUCTION WORKER [facility] CO2 24 23 - 31 mmol/L 05/05/2021 1:08 PM [employer]ANT CONSTRUCTION WORKER [facility] Calcium 9.7 8.4 - 10.4 mg/dL 05/05/2021 1:08 PM [employer] CONSTRUCTION WORKER [facility] Anion Gap 13 8 - 18 mmol/L 05/05/2021 1:08 PM [employer] CONSTRUCTION WORKER [facility] BUN 33(H) 8.9 - 20.6 mg/dL 05/05/2021 1:08 PM [employer]STRU[employer] WORKER [facility] Creatinine 0.85 0.72 - 1.25 mg/dL 05/05/2021 1:08 PM [employer] CONSTRUCTION WORKER [facility] Alkaline Phosphatase 98 40 - 150 U/L 05/05/2021 1:08 PM [employer] CONSTRUCTION WORKER [facility] ALT 34 0 - 61 U/L 05/05/2021 1:08 PM [employer] CONSTRUCTION WORKER [facility] AST 22 5 - 34 U/L 05/05/2021 1:08 PM [employer] CONSTRUCTION WORKER [facility] Protein Total 7.3 6.4 - 8.3 gm/dL 05/05/2021 1:08 PM [employer] CONSTRUCTION WORKER [facility] Albumin 3.7 3.5 - 5.2 gm/dL 05/05/2021 1:08 PM [employer] CONSTRUCTION WORKER [facility] Bilirubin Total 0.3 0.2 - 1.2 mg/dL 05/05/2021 1:08 PM [facility] eGFR by MDRD >60 >60 mL/min/1.7 3m2 05/05/2021 1:08 PM [facility] eGFR by MDRD >60 >60 mL/min/1.7 3m2 05/05/2021 1:08 PM [facility] Blood BLOOD SPECIMEN / Unknown Venipuncture / Unknown 05/05/2021 5:32 AM B[employer]FUELS PLANT CONSTRUCTION WORKER 05/05/2021 12:02 PM [employer] CONSTRUCTION WORKER Lamberto De La Cruz MD LAB - CHEMISTRY ORDE [facility] Organization Address City/State/ZIP Co de Phone Number [facility] [address] [place] [address] * (ABNORMAL) CBC WITH DIFFERENTIAL (05/05/2021 5:32 AM BIOFUEL[employer] PLANT CONSTRUCTION WORKER) WBC 6.5 4.4 - 10.7 x10E9/L 05/05/2021 12:31 PM [facility] WBC Corrected 05/05/2021 12:31 PM [facility] RBC 3.95 3.80 - 5.40 x10E12/L 05/05/2021 12:31 PM [facility] Hemoglobin 11.0(L) 12.0 - 17.6 gm/dL 05/05/2021 12:31 PM [facility] Hematocrit 35.4 35.2 - 51.7 % 05/05/2021 12:31 PM [facility] MCV 89.6 80.7 - 98.3 fl 05/05/2021 12:31 PM [facility] MCH 27.8 26.7 - 34.0 pg 05/05/2021 12:31 PM [facility] MCHC 31.1 30.8 - 35.9 gm/dL 05/05/2021 12:31 PM [facility] Platelet Count 398 153 - 416 x10E9/L 05/05/2021 12:31 PM [facility] RDW-CV 13.2 12.1 - 14.9 % 05/05/2021 12:31 PM [facility] MPV 10.4 9.4 - 12.9 fl 05/05/2021 12:31 PM [facility] Neutrophils % 67.5 44.0 - 73.0 % 05/05/2021 12:31 PM [facility] Lymphocytes % 16.4(L) 20.0 - 43.0 % 05/05/2021 12:31 PM [facility] Monocytes % 10.1 5.0 - 13.0 % 05/05/2021 12:31 PM [facility] Eosinophils % 5.3 0.0 - 6.0 % 05/05/2021 12:31 PM [facility] Basophils % 0.5 0.0 - 2.0 % 05/05/2021 12:31 PM [facility] Immature Granulocytes 0.2 0 - 1 % 05/05/2021 12:31 PM [facility] Neutrophil Absolute 4.36 2.01 - 7.14 x10E9/L 05/05/2021 12:31 PM [facility] Lymphocytes Absolute 1.06(L) 1.07 - 3.94 x10E9/L 05/05/2021 12:31 PM [facility] Monocytes Absolute 0.65 0.26 - 1.07 x10E9/L 05/05/2021 12:31 PM [facility] Eosinophils Absolute 0.34 0 - 0.47 x10E9/L 05/05/2021 12:31 PM [facility] Basophils Absolute 0.03 0 - 0.08 x10E9/L 05/05/2021 12:31 PM [facility] Immature Granulocytes Absolute 0.01 0.00 - 0.06 x10E9/L 05/05/2021 12:31 PM [facility] nRBC Auto 0 /100 WBC 05/05/2021 12:31 PM [facility] Blood BLOOD SPECIMEN / Unknown Venipuncture / Unknown 05/05/2021 5:32 AM [employer] WORKER 05/05/2021 12:02 PM [employer] WORKER Lamberto De La Cruz MD LAB - HEMATOLOGY ORD ERABLES [facility] [address] [place] [address] documented in this encounter Visit Diagnoses Not on filedocumented in this encounter Care Teams Audiovisual Lead Technician Relationship Specialty Start Date End Date Pepe Martel MD [facility] [address] [address] PCP - General 08/14/16 documented as of this encounter
--- OUTSIDE RECORDS SUMMARY | 2024-05-23 03:20 | XMS_ITS | Encounter Summary ---
Author Organization [facility] Address [address] [place] [address] Care Team Providers Care Lan Manager Name Role Phone Pepe Martel MD Primary Care Provider [phone] Encounter Details Date Type Department Care Team (Late st Contact Info) Description 07/07/2021 Lab Requisition [facility] [address] [place] [address] [place] [address] [place] [address] Social History Tobacco Use Types Packs/Day Years [...] Diagnosis Comments CBC W AUTO DIFFERENTIAL STAT 07/07/2021 4:00 AM LACE PAPER MACHINE OPERATOR COMPREHENSIVE METABOLIC PANEL STAT 07/07/2021 4:00 AM LACE PAPER MACHINE OPERATOR documented in this encounter Results * (ABNORMAL) CBC WITH DIFFERENTIAL (07/07/2021 4:00 AM LACE PAPER MACHINE OPERATOR) WBC 11.3(H) 4.4 - 10.7 x10E9/L 07/07/2021 10:39 AM LACE PAPER MACHINE OPERATOR [facility] WBC Corrected 07/07/2021 10:39 AM LACE PAPER MACHINE OPERATOR [facility] RBC 4.53 3.80 - 5.40 x10E12/L 07/07/2021 10:39 AM [facility] Hemoglobin 11.9(L) 12.0 - 17.6 gm/dL 07/07/2021 10:39 AM LACE PAPER MACHINE OPERATOR [facility] Hematocrit 38.5 35.2 - 51.7 % 07/07/2021 10:39 AM [facility] MCV 85.0 80.7 - 98.3 fl 07/07/2021 10:39 AM [facility] MCH 26.3(L) 26.7 - 34.0 pg 07/07/2021 10:39 AM LACE PAPER MACHINE OPERATOR [facility] MCHC 30.9 30.8 - 35.9 gm/dL 07/07/2021 10:39 AM [facility] Platelet Count 385 153 - 416 x10E9/L 07/07/2021 10:39 AM LACE PAPER MACHINE OPERATOR [facility] RDW-CV 13.2 12.1 - 14.9 % 07/07/2021 10:39 AM [facility] MPV 10.7 9.4 - 12.9 fl 07/07/2021 10:39 AM LACE PAPER MACHINE OPERATOR [facility] Neutrophils % 68.6 44.0 - 73.0 % 07/07/2021 10:39 AM LACE PAPER MACHINE OPERATOR [facility] Lymphocytes % 18.3(L) 20.0 - 43.0 % 07/07/2021 10:39 AM LACE PAPER MACHINE OPERATOR [facility] Monocytes % 7.7 5.0 - 13.0 % 07/07/2021 10:39 AM [facility] Eosinophils % 4.6 0.0 - 6.0 % 07/07/2021 10:39 AM [facility] Basophils % 0.4 0.0 - 2.0 % 07/07/2021 10:39 AM [facility] Immature Granulocytes 0.4 0 - 1 % 07/07/2021 10:39 AM [facility] Neutrophil Absolute 7.80(H) 2.01 - 7.14 x10E9/L 07/07/2021 10:39 AM [facility] Lymphocytes Absolute 2.07 1.07 - 3.94 x10E9/L 07/07/2021 10:39 AM [facility] Monocytes Absolute 0.87 0.26 - 1.07 x10E9/L 07/07/2021 10:39 AM [facility] Eosinophils Absolute 0.52(H) 0 - 0.47 x10E9/L 07/07/2021 10:39 AM [facility] Basophils Absolute 0.04 0 - 0.08 x10E9/L 07/07/2021 10:39 AM [facility] Immature Granulocytes Absolute 0.04 0.00 - 0.06 x10E9/L 07/07/2021 10:39 AM [facility] nRBC Auto 0 /100 WBC 07/07/2021 10:39 AM [facility] Blood BLOOD SPECIMEN / Unknown Venipuncture / Unknown 07/07/2021 4:00 AM [facility] 07/07/2021 9:27 AM [facility] Vinicio Quintanilla MD LAB - HEMATOLOGY ORD ERABLES [facility] [address] [place] [address] * (ABNORMAL) COMPREHENSIVE METABOLIC PANEL (07/07/2021 4:00 AM [facility]) [facility] Glucose 111(H) 70 - 105 mg/dL 07/07/2021 10:48 AM [facility] Sodium 143 136 - 145 mmol/L 07/07/2021 10:48 AM [facility] Potassium 4.4 3.5 - 5.1 mmol/L 07/07/2021 10:48 AM [facility] Chloride 103 98 - 107 mmol/L 07/07/2021 10:48 AM [facility] CO2 28 23 - 31 mmol/L 07/07/2021 10:48 AM [facility] Calcium 10.1 8.4 - 10.4 mg/dL 07/07/2021 10:48 AM [facility] Anion Gap 12 8 - 18 mmol/L 07/07/2021 10:48 AM [facility] BUN 35(H) 8.9 - 20.6 mg/dL 07/07/2021 10:48 AM [facility] Creatinine 0.96 0.72 - 1.25 mg/dL 07/07/2021 10:48 AM [facility] Alkaline Phosphatase 139 40 - 150 U/L 07/07/2021 10:48 AM [facility] ALT 35 0 - 61 U/L 07/07/2021 10:48 AM [facility] AST 17 5 - 34 U/L 07/07/2021 10:48 AM [facility] Protein Total 7.8 6.4 - 8.3 gm/dL 07/07/2021 10:48 AM [facility] Albumin 3.9 3.5 - 5.2 gm/dL 07/07/2021 10:48 AM [facility] Bilirubin Total 0.3 0.2 - 1.2 mg/dL 07/07/2021 10:48 AM [facility] eGFR by MDRD >60 >60 mL/min/1.7 3m2 07/07/2021 10:48 AM [facility] eGFR by MDRD >60 >60 mL/min/1.7 3m2 07/07/2021 10:48 AM [facility] Blood BLOOD SPECIMEN / Unknown Venipuncture / Unknown 07/07/2021 4:00 AM [facility] 07/07/2021 9:27 AM [facility] Vinicio Quintanilla MD LAB - CHEMISTRY JOSE ENRIQUE VELA [facility] Organization Address City/State/ZIP Co de Phone Number [facility] [address] [place] [address] documented in this encounter Visit Diagnoses Not on filedocumented in this encounter Care Teams Lan Manager Relationship Specialty Start Date End Date Pepe Martel MD [address] [place] [address] PCP - General 08/14/16 documented as of this encounter
--- OUTSIDE RECORDS SUMMARY | 2024-05-23 03:20 | XMS_ITS | Encounter Summary ---
Author Organization [facility] Address [address] [facility] [place] [address] Care Team Providers Care Police Liaison Name Role Phone Pepe Martel MD Primary Care Provider [phone] Encounter Details Date Type Department Care Team (Late st Contact Info) Description 05/23/2021 Lab Requisition [facility] [address] [place] [address] [place] [address] [place] [address] Social History Tobacco Use Types [...] Associated Diagnosis Comments SLIDE SCAN HEMATOLOGY Routine 05/23/2021 4:00 AM LABORER PIE BAKERY CBC W AUTO DIFFERENTIAL STAT 05/23/2021 4:00 AM LABORER PIE BAKERY documented in this encounter Results * SLIDE SCAN HEMATOLOGY (05/23/2021 4:00 AM LABORER PIE BAKERY) WBC Morph Normal 05/23/2021 9:33 AM LABORER PIE BAKERY [facility] RBC Morphology Normal 05/23/2021 9:33 AM LABORER PIE BAKERY [facility] Platelet Estimation Normal Normal, Adequate platelets 05/23/2021 9:33 AM LABORER PIE BAKERY [facility] Blood BLOOD SPECIMEN / Unknown Venipuncture / Unknown 05/23/2021 4:00 AM LABORER PIE BAKERY 05/23/2021 8:32 AM LABORER PIE BAKERY Braden Hernandez MD LAB - HEMATOLOGY ORD ERABLES Performing Organization Address City/State/[facility] Co de Phone Number [facility] [address] [place] [address] * (ABNORMAL) CBC WITH DIFFERENTIAL (05/23/2021 4:00 AM LABORER PIE BAKERY) WBC 7.7 4.4 - 10.7 x10E9/L 05/23/2021 8:48 AM LABORER PIE BAKERY [facility] WBC Corrected 05/23/2021 8:48 AM LABORER PIE BAKERY [facility] RBC 3.64(L) 3.80 - 5.40 x10E12/L 05/23/2021 8:48 AM LABORER PIE BAKERY [facility] Hemoglobin 10.1(L) 12.0 - 17.6 gm/dL 05/23/2021 8:48 AM LABORER PIE BAKERY [facility] Hematocrit 32.2(L) 35.2 - 51.7 % 05/23/2021 8:48 AM LABORER PIE BAKERY [facility] MCV 88.5 80.7 - 98.3 fl 05/23/2021 8:48 AM [facility] MCH 27.7 26.7 - 34.0 pg 05/23/2021 8:48 AM [facility] MCHC 31.4 30.8 - 35.9 gm/dL 05/23/2021 8:48 AM [facility] Platelet Count 299 153 - 416 x10E9/L 05/23/2021 8:48 AM [facility] RDW-CV 12.3 12.1 - 14.9 % 05/23/2021 8:48 AM [facility] MPV 10.5 9.4 - 12.9 fl 05/23/2021 8:48 AM [facility] Neutrophils % 71.5 44.0 - 73.0 % 05/23/2021 8:48 AM [facility] Lymphocytes % 12.3(L) 20.0 - 43.0 % 05/23/2021 8:48 AM [facility] Monocytes % 11.8 5.0 - 13.0 % 05/23/2021 8:48 AM [facility] Eosinophils % 3.8 0.0 - 6.0 % 05/23/2021 8:48 AM [facility] Basophils % 0.3 0.0 - 2.0 % 05/23/2021 8:48 AM [facility] Immature Granulocytes 0.3 0 - 1 % 05/23/2021 8:48 AM [facility] Neutrophil Absolute 5.51 2.01 - 7.14 x10E9/L 05/23/2021 8:48 AM [facility] Lymphocytes Absolute 0.95(L) 1.07 - 3.94 x10E9/L 05/23/2021 8:48 AM [facility] Monocytes Absolute 0.91 0.26 - 1.07 x10E9/L 05/23/2021 8:48 AM [facility] Eosinophils Absolute 0.29 0 - 0.47 x10E9/L 05/23/2021 8:48 AM [facility] Basophils Absolute 0.02 0 - 0.08 x10E9/L 05/23/2021 8:48 AM [facility] Immature Granulocytes Absolute 0.02 0.00 - 0.06 x10E9/L 05/23/2021 8:48 AM [facility] nRBC Auto 0 /100 WBC 05/23/2021 8:48 AM LABORER PIE BAKERY [facility] Blood BLOOD SPECIMEN / Unknown Venipuncture / Unknown 05/23/2021 4:00 AM LABORER PIE BAKERY 05/23/2021 8:32 AM LABORER PIE BAKERY Braden Hernandez MD LAB - HEMATOLOGY ORD ERABLES Performing Organization Address City/State/[facility] Co de Phone Number [facility] [address] [place], [place] [id number] documented in this encounter Visit Diagnoses Not on filedocumented in this encounter Care Teams Police Liaison Relationship Specialty Start Date End Date Pepe Martel MD [address] [place] [address] [address] [place] [address] PCP - General 08/14/16 documented as of this encounter
--- OUTSIDE RECORDS SUMMARY | 2024-05-23 03:20 | XMS_ITS | Encounter Summary ---
Author Organization [facility] Address [address] [place] [address] Care Team Providers Care Counter Clerk Name Role Phone Pepe Martel MD Primary Care Provider [phone] Encounter Details Date Type Department Care Team (Late st Contact Info) Description 04/30/2021 Lab Requisition [facility] [address] [place] [address] [place] [address] [place] [address] Social History Tobacco Use Types Packs/Day Years [...] URINALYSIS REFLEX TO MICROSCOPIC NO CULTURE STAT 04/30/2021 2:[address]NAGER URINE MICROSCOPIC ONLY STAT 2:[address] MANAGER SLIDE SCAN HEMATOLOGY Routine 04/30/2021 2:[address] MANAGER CBC W AUTO DIFFERENTIAL STAT 04/30/2021 2:[address]NAGER COMPREHENSIVE METABOLIC PANEL STAT 04/30/2021 2:[address]NAGER documented in this encounter Results * (ABNORMAL) SLIDE SCAN HEMATOLOGY (04/30/2021 2:[address] MANAGER) WBC Morph Normal 04/30/2021 10:[address]NA[address] [facility] RBC Morphology Normal 04/30/2021 10:[address]NA[address] [facility] Platelet Estimation Normal Normal, Adequate platelets 04/30/2021 10:[address]NA[address] [facility] Clumped Platelets 1+(A) None 04/30/2021 10:[address]NA[address] [facility] Blood BLOOD SPECIMEN / Unknown Venipuncture / Unknown 04/30/2021 2:[address] MANAGER 04/30/2021 8:[address]NA[address] Vinicio Quintanilla MD LAB - HEMATOLOGY ORD ERABLES [facility] [address] [place] [address] * (ABNORMAL) URINE MICROSCOPIC ONLY (04/30/2021 2:[address]NAGER) RBC UA 51-100(A) None Seen, 0-2, 3-5 # /hpf 04/30/2021 9:[address] MANAGER [facility] WBC UA 11-20(A) None Seen, 0-5 # /hpf 04/30/2021 9:49 AM [facility] Bacteria UA Trace(A) None Seen 04/30/2021 9:49 AM [facility] Squamous Epithelial Cells 0-2 None Seen, 0-2, 3-5 /hpf 04/30/2021 9:49 AM [facility] Mucus UA 1+ /LPF 04/30/2021 9:49 AM [facility] Urine URINE SPECIMEN OBTAINED BY CLEAN CATCH PROCEDURE / Unknown Collection / Unknown 04/30/2021 2:[address]NAGER 04/30/2021 8:[address]NA[address] [facility] LAB[facility]ATORY - 04/30/2021 9:[address]NA[address] Vinicio Quintanilla MD LAB - URINALYSIS ORD ERABLES [facility] [address] [place], [place] [id number] * (ABNORMAL) COMPREHENSIVE METABOLIC PANEL (04/30/2021 2:[address]NAGER) Glucose 102 70 - 105 mg/dL 04/30/2021 9:58 AM [facility] Sodium 140 136 - 145 mmol/L 04/30/2021 9:58 AM [facility] Potassium 4.9 3.5 - 5.1 mmol/L 04/30/2021 9:58 AM [facility] Chloride 105 98 - 107 mmol/L 04/30/2021 9:58 AM [facility] CO2 22(L) 23 - 31 mmol/L 04/30/2021 9:58 AM [facility] Calcium 9.7 8.4 - 10.4 mg/dL 04/30/2021 9:58 AM [facility] Anion Gap 13 8 - 18 mmol/L 04/30/2021 9:58 AM [facility] BUN 32(H) 8.9 - 20.6 mg/dL 04/30/2021 9:58 AM [facility] Creatinine 0.91 0.72 - 1.25 mg/dL 04/30/2021 9:58 AM [facility] Alkaline Phosphatase 76 40 - 150 U/L 04/30/2021 9:58 AM [facility] ALT 19 0 - 61 U/L 04/30/2021 9:[address]NA[address] [facility] AST 18 5 - 34 U/L 04/30/2021 9:[address] [facility] Protein Total 7.4 6.4 - 8.3 gm/dL 04/30/2021 9:[address]NA[address] [facility] Albumin 3.6 3.5 - 5.2 gm/dL 04/30/2021 9:[address]NA[address] [facility] Bilirubin Total 0.3 0.2 - 1.2 mg/dL 04/30/2021 9:[address]NA[address] [facility] eGFR by MDRD >60 >60 mL/min/1.7 3m2 04/30/2021 9:[address] [facility] eGFR by MDRD >60 >60 mL/min/1.7 3m2 04/30/2021 9:58 AM [facility] Blood BLOOD SPECIMEN / Unknown Venipuncture / Unknown 04/30/2021 2:[address]NAGER 04/30/2021 8:[address]NA[address] Vinicio Quintanilla MD LAB - CHEMISTRY ORDE [facility] Organization Address City/State/ZIP Co de Phone Number [facility] [address] [place] [address] * (ABNORMAL) CBC WITH DIFFERENTIAL (04/30/2021 2:[address]NAGER) WBC 8.2 4.4 - 10.7 x10E9/L 04/30/2021 9:[address] [facility] WBC Corrected 04/30/2021 9:[address] [facility] RBC 3.82 3.80 - 5.40 x10E12/L 04/30/2021 9:[address] [facility] Hemoglobin 10.8(L) 12.0 - 17.6 gm/dL 04/30/2021 9:[address] [facility] Hematocrit 34.5(L) 35.2 - 51.7 % 04/30/2021 9:[address] [facility] MCV 90.3 80.7 - 98.3 fl 04/30/2021 9:[address] [facility] MCH 28.3 26.7 - 34.0 pg 04/30/2021 9:55 AM [facility] MCHC 31.3 30.8 - 35.9 gm/dL 04/30/2021 9:55 AM [facility] Platelet Count 376 153 - 416 x10E9/L 04/30/2021 9:55 AM [facility] RDW-CV 13.8 12.1 - 14.9 % 04/30/2021 9:55 AM [facility] MPV 10.7 9.4 - 12.9 fl 04/30/2021 9:55 AM [facility] Neutrophils % 67.9 44.0 - 73.0 % 04/30/2021 9:55 AM [facility] Lymphocytes % 14.8(L) 20.0 - 43.0 % 04/30/2021 9:55 AM [facility] Monocytes % 11.2 5.0 - 13.0 % 04/30/2021 9:55 AM [facility] Eosinophils % 5.0 0.0 - 6.0 % 04/30/2021 9:55 AM [facility] Basophils % 0.7 0.0 - 2.0 % 04/30/2021 9:55 AM [facility] Immature Granulocytes 0.4 0 - 1 % 04/30/2021 9:55 AM [facility] Neutrophil Absolute 5.53 2.01 - 7.14 x10E9/L 04/30/2021 9:55 AM [facility] Lymphocytes Absolute 1.21 1.07 - 3.94 x10E9/L 04/30/2021 9:55 AM [facility] Monocytes Absolute 0.91 0.26 - 1.07 x10E9/L 04/30/2021 9:55 AM [facility] Eosinophils Absolute 0.41 0 - 0.47 x10E9/L 04/30/2021 9:55 AM [facility] Basophils Absolute 0.06 0 - 0.08 x10E9/L 04/30/2021 9:55 AM [facility] Immature Granulocytes Absolute 0.03 0.00 - 0.06 x10E9/L 04/30/2021 9:55 AM [facility] nRBC Auto 0 /100 WBC 04/30/2021 9:55 AM [facility] Blood BLOOD SPECIMEN / Unknown Venipuncture / Unknown 04/30/2021 2:[address]NAGER 04/30/2021 8:[address]NA[address] Vinicio Quintanilla MD LAB - HEMATOLOGY ORD ERABLES [facility] [address] [place] [address] * (ABNORMAL) URINALYSIS REFLEX TO MICROSCOPIC NO CULTURE (04/30/2021 2:[address] MANAGER) Color UA Yellow Straw, Yellow 04/30/2021 9:[address] [facility] Clarity UA Slt Cloudy(A) Clear 04/30/2021 9:55 AM [facility] Glucose UA Negative Negative 04/30/2021 9:[address] [facility] Bilirubin UA Negative Negative 04/30/2021 9:[address] [facility] Ketone UA Negative Negative 04/30/2021 9:55 AM [facility] Specific [place] UA 1.024 1.005 - 1.030 04/30/2021 9:55 AM [facility] Blood UA 2+(A) Negative 04/30/2021 9:55 AM [facility] pH UA 6.0 5.0 - 8.0 pH 04/30/2021 9:55 AM [facility] Protein UA 2+(A) Negative 04/30/2021 9:55 AM [facility] Urobilinogen UA Negative Negative mg/dL 04/30/2021 9:55 AM [facility] Nitrite UA Negative Negative 04/30/2021 9:55 AM [facility] Leukocyte UA Trace(A) Negative 04/30/2021 9:55 AM [facility] Urine Microscopy Urine microscopy to follow 04/30/2021 9:55 AM [facility] Urine URINE SPECIMEN OBTAINED BY CLEAN CATCH PROCEDURE / Unknown Collection / Unknown 04/30/2021 2:[address]NAGER 04/30/2021 8:[address]NAGER Narrative [facility] - 04/30/2021 9:[address]NAGER Ascorbic Acid can cause false negative urine strip tests for blood, glucose, nitrite, and bilirubin. Vinicio Quintanilla MD LAB - URINALYSIS ORD ERABLES [facility] [address] [place] [address] documented in this encounter Visit Diagnoses Not on filedocumented in this encounter Care Teams Counter Clerk Relationship Specialty Start Date End Date Pepe Martel MD [address] [facility] [address] [place] [address] PCP - General 08/14/16 documented as of this encounter
--- OUTSIDE RECORDS SUMMARY | 2024-05-23 03:20 | XMS_ITS | Encounter Summary ---
Author Organization [facility] Address [address] [facility] [place] [address] Care Team Providers Care Supervisor Filter Assembly Name Role Phone Pepe Maretl MD Primary Care Provider [phone] Encounter Details Date Type Department Care Team (Late st Contact Info) Description 04/25/2021 Lab Requisition [facility] [address] [place] [address] Davon Laws MD [address] [place] [address] Social History Tobacco Use Types [...] Procedure Name Priority Date/Time Associated Diagnosis Comments VANCOMYCIN LEVEL TROUGH STAT 04/25/2021 2:00 AM CUSTOMER DATA TECHNICIAN documented in this encounter Results * VANCOMYCIN LEVEL TROUGH (04/25/2021 2:00 AM CUSTOMER DATA TECHNICIAN) Vancomycin Trough 19.5 10.0 - 20.0 ug/mL 04/25/2021 9:15 AM CUSTOMER DATA TECHNICIAN [facility] Blood BLOOD SPECIMEN / Unknown Venipuncture / Unknown 04/25/2021 2:00 AM CUSTOMER DATA TECHNICIAN 04/25/2021 8:44 AM CUSTOMER DATA TECHNICIAN Davon Laws MD LAB - CHEMISTRY JOSE ENRIQUE VELA [facility] Organization Address City/State/[facility] Co de Phone Number [facility] [address] [place] [address] documented in this encounter Visit Diagnoses Not on filedocumented in this encounter Care Teams Supervisor Filter Assembly Relationship Specialty Start Date End Date Pepe Martel MD [address] [place] [address] PCP - General 08/14/16 documented as of this encounter
--- OUTSIDE RECORDS SUMMARY | 2024-05-23 03:20 | XMS_ITS | Encounter Summary ---
Author Organization [facility] Address [address] [place] [address] Care Team Providers Care Boil[employer]aker [employer] Name Role Phone Pepe Martel MD Primary Care Provider Encounter Details Date Type Department Care Team (Late st Contact Info) Description 07/21/2021 Lab Requisition [facility] [address] [place] [address] [place] [address] [place] [address] Social History Tobacco Use Types Packs/Day Years [...] Diagnosis Comments CBC W AUTO DIFFERENTIAL STAT 07/21/2021 2:45 AM SYSTEMS ARCHITECTURE ANALYST COMPREHENSIVE METABOLIC PANEL STAT 07/21/2021 2:45 AM SYSTEMS ARCHITECTURE ANALYST documented in this encounter Results * (ABNORMAL) CBC WITH DIFFERENTIAL (07/21/2021 2:45 AM SYSTEMS ARCHITECTURE ANALYST) WBC 10.4 4.4 - 10.7 x10E9/L 07/21/2021 9:17 AM SYSTEMS ARCHITECTURE ANALYST [facility] WBC Corrected 07/21/2021 9:17 AM SYSTEMS ARCHITECTURE ANALYST [facility] RBC 4.51 3.80 - 5.40 x10E12/L 07/21/2021 9:17 AM SYSTEMS ARCHITECTURE ANALYST [facility] Hemoglobin 11.4(L) 12.0 - 17.6 gm/dL 07/21/2021 9:17 AM SYSTEMS ARCHITECTURE ANALYST [facility] Hematocrit 37.4 35.2 - 51.7 % 07/21/2021 9:17 AM SYSTEMS ARCHITECTURE ANALYST [facility] MCV 82.9 80.7 - 98.3 fl 07/21/2021 9:17 AM SYSTEMS ARCHITECTURE ANALYST [facility] MCH 25.3(L) 26.7 - 34.0 pg 07/21/2021 9:17 AM SYSTEMS ARCHITECTURE ANALYST [facility] MCHC 30.5(L) 30.8 - 35.9 gm/dL 07/21/2021 9:17 AM SYSTEMS ARCHITECTURE ANALYST [facility] Platelet Count 531(H) 153 - 416 x10E9/L 07/21/2021 9:17 AM SYSTEMS ARCHITECTURE ANALYST [facility] RDW-CV 13.9 12.1 - 14.9 % 07/21/2021 9:17 AM SYSTEMS ARCHITECTURE ANALYST [facility] MPV 9.4 9.4 - 12.9 fl 07/21/2021 9:17 AM SYSTEMS ARCHITECTURE ANALYST [facility] Neutrophils % 65.4 44.0 - 73.0 % 07/21/2021 9:17 AM SYSTEMS ARCHITECTURE ANALYST [facility] Lymphocytes % 20.4 20.0 - 43.0 % 07/21/2021 9:17 AM SYSTEMS ARCHITECTURE ANALYST [facility] Monocytes % 10.2 5.0 - 13.0 % 07/21/2021 9:17 AM [facility] Eosinophils % 3.1 0.0 - 6.0 % 07/21/2021 9:17 AM [facility] Basophils % 0.4 0.0 - 2.0 % 07/21/2021 9:17 AM [facility] Immature Granulocytes 0.5 0 - 1 % 07/21/2021 9:17 AM [facility] Neutrophil Absolute 6.83 2.01 - 7.14 x10E9/L 07/21/2021 9:17 AM [facility] Lymphocytes Absolute 2.13 1.07 - 3.94 x10E9/L 07/21/2021 9:17 AM [facility] Monocytes Absolute 1.07 0.26 - 1.07 x10E9/L 07/21/2021 9:17 AM [facility] Eosinophils Absolute 0.32 0 - 0.47 x10E9/L 07/21/2021 9:17 AM [facility] Basophils Absolute 0.04 0 - 0.08 x10E9/L 07/21/2021 9:17 AM [facility] Immature Granulocytes Absolute 0.05 0.00 - 0.06 x10E9/L 07/21/2021 9:17 AM [facility] nRBC Auto 0 /100 WBC 07/21/2021 9:17 AM [facility] Blood BLOOD SPECIMEN / Unknown Venipuncture / Unknown 07/21/2021 2:45 AM SYSTEMS ARCHITECTURE ANALYST 07/21/2021 9:01 AM [facility] Vinicio Quintanilla MD LAB - HEMATOLOGY ORD ERABLES [facility] [address] [place] [address] * (ABNORMAL) COMPREHENSIVE METABOLIC PANEL (07/21/2021 2:45 AM [facility]) [facility] Glucose 87 70 - 105 mg/dL 07/21/2021 9:28 AM [facility] Sodium 140 136 - 145 mmol/L 07/21/2021 9:28 AM [facility] Potassium 5.4(H) 3.5 - 5.1 mmol/L 07/21/2021 9:28 AM [facility] Chloride 102 98 - 107 mmol/L 07/21/2021 9:28 AM [facility] CO2 24 23 - 31 mmol/L 07/21/2021 9:28 AM [facility] Calcium 10.1 8.4 - 10.4 mg/dL 07/21/2021 9:28 AM [facility] Anion Gap 14 8 - 18 mmol/L 07/21/2021 9:28 AM [facility] BUN 31(H) 8.9 - 20.6 mg/dL 07/21/2021 9:28 AM [facility] Creatinine 1.04 0.72 - 1.25 mg/dL 07/21/2021 9:28 AM [facility] Alkaline Phosphatase 193(H) 40 - 150 U/L 07/21/2021 9:28 AM [facility] ALT 35 0 - 61 U/L 07/21/2021 9:28 AM [facility] AST 19 5 - 34 U/L 07/21/2021 9:28 AM [facility] Protein Total 8.0 6.4 - 8.3 gm/dL 07/21/2021 9:28 AM [facility] Albumin 3.8 3.5 - 5.2 gm/dL 07/21/2021 9:28 AM [facility] Bilirubin Total 0.3 0.2 - 1.2 mg/dL 07/21/2021 9:28 AM [facility] eGFR by CKD-EPI >90 >=90 mL/min/1.7 3 m2 07/21/2021 9:28 AM [facility] Blood BLOOD SPECIMEN / Unknown Venipuncture / Unknown 07/21/2021 2:45 AM SYSTEMS ARCHITECTURE ANALYST 07/21/2021 9:01 AM [facility] - 07/21/2021 9:28 AM [facility] eGFR result was calculated using the updated CKD-EPI Creatinine Equations (2020). Prior to go live 2021 the eGFR was calculated using the MDRD calculation. Please note Reference Range change. Vinicio Quintanilla MD [facility] Organization Address City/State/ZIP Co de Phone Number [facility] [address] [place] [address] documented in this encounter Visit Diagnoses Not on filedocumented in this encounter Care Teams [employer] Relationship Specialty Start Date End Date Pepe Martel MD [address] [place] [address] [address] [place] [address] PCP - General 08/14/16 documented as of this encounter
--- OUTSIDE RECORDS SUMMARY | 2024-05-23 03:20 | XMS_ITS | Encounter Summary ---
Author Organization [facility] Address [address] [facility] [place] [address] Care Team Providers Care Stick Feeder Name Role Phone Pepe Martel MD Primary Care Provider [phone] Encounter Details Date Type Department Care Team (Late st Contact Info) Description 06/05/2021 Lab Requisition [facility] [address] [place] [address] Lamberto De La Cruz MD [address] [facility] [address] [place] [address] Social History Tobacco Use Types [...] Diagnosis Comments CBC W AUTO DIFFERENTIAL STAT 06/05/2021 4:39 AM MEDICAL SUPPORT ASSISTANT COMPREHENSIVE METABOLIC PANEL STAT 06/05/2021 4:39 AM MEDICAL SUPPORT ASSISTANT documented in this encounter Results * (ABNORMAL) CBC WITH DIFFERENTIAL (06/05/2021 4:39 AM MEDICAL SUPPORT ASSISTANT) WBC 11.1(H) 4.4 - 10.7 x10E9/L 06/05/2021 11:01 AM MEDICAL SUPPORT ASSISTANT [facility] WBC Corrected 06/05/2021 11:01 AM MEDICAL SUPPORT ASSISTANT [facility] RBC 4.20 3.80 - 5.40 x10E12/L 06/05/2021 11:[address] [facility] Hemoglobin 11.2(L) 12.0 - 17.6 gm/dL 06/05/2021 11:01 AM MEDICAL SUPPORT ASSISTANT [facility] Hematocrit 35.8 35.2 - 51.7 % 06/05/2021 11:01 AM [facility] MCV 85.2 80.7 - 98.3 fl 06/05/2021 11:[address] [facility] MCH 26.7 26.7 - 34.0 pg 06/05/2021 11:01 AM MEDICAL SUPPORT ASSISTANT [facility] MCHC 31.3 30.8 - 35.9 gm/dL 06/05/2021 11:[address] [facility] Platelet Count 498(H) 153 - 416 x10E9/L 06/05/2021 11:01 AM MEDICAL SUPPORT ASSISTANT [facility] RDW-CV 12.0(L) 12.1 - 14.9 % 06/05/2021 11:01 AM MEDICAL SUPPORT ASSISTANT [facility] MPV 9.2(L) 9.4 - 12.9 fl 06/05/2021 11:01 AM MEDICAL SUPPORT ASSISTANT [facility] Neutrophils % 74.6(H) 44.0 - 73.0 % 06/05/2021 11:01 AM MEDICAL SUPPORT ASSISTANT [facility] Lymphocytes % 13.4(L) 20.0 - 43.0 % 06/05/2021 11:[address] [facility] Monocytes % 7.9 5.0 - 13.0 % 06/05/2021 11:[address] [facility] Eosinophils % 3.3 0.0 - 6.0 % 06/05/2021 11:[address] [facility] Basophils % 0.4 0.0 - 2.0 % 06/05/2021 11:[address] [facility] Immature Granulocytes 0.4 0 - 1 % 06/05/2021 11:[address] [facility] Neutrophil Absolute 8.28(H) 2.01 - 7.14 x10E9/L 06/05/2021 11:[address] [facility] Lymphocytes Absolute 1.49 1.07 - 3.94 x10E9/L 06/05/2021 11:[address] [facility] Monocytes Absolute 0.88 0.26 - 1.07 x10E9/L 06/05/2021 11:[address] [facility] Eosinophils Absolute 0.37 0 - 0.47 x10E9/L 06/05/2021 11:[address] [facility] Basophils Absolute 0.04 0 - 0.08 x10E9/L 06/05/2021 11:[address] [facility] Immature Granulocytes Absolute 0.04 0.00 - 0.06 x10E9/L 06/05/2021 11:[address] [facility] nRBC Auto 0 /100 WBC 06/05/2021 11:[address] [facility] Blood BLOOD SPECIMEN / Unknown Venipuncture / Unknown 06/05/2021 4:39 AM [facility] 06/05/2021 10:29 AM [facility] Lamberto De La Cruz MD LAB - HEMATOLOGY ORD ERABLES [facility] [address] [place] [address] * (ABNORMAL) COMPREHENSIVE METABOLIC PANEL (06/05/2021 4:39 AM [facility]) Glucose 124(H) 70 - 105 mg/dL 06/05/2021 11:[address] [facility] Sodium 134(L) 136 - 145 mmol/L 06/05/2021 11:[address] [facility] Potassium 4.8 3.5 - 5.1 mmol/L 06/05/2021 11:[address] [facility] Chloride 97(L) 98 - 107 mmol/L 06/05/2021 11:[address] [facility] CO2 27 23 - 31 mmol/L 06/05/2021 11:[address] [facility] Calcium 9.6 8.4 - 10.4 mg/dL 06/05/2021 11:[address] [facility] Anion Gap 10 8 - 18 mmol/L 06/05/2021 11:[address] [facility] BUN 32(H) 8.9 - 20.6 mg/dL 06/05/2021 11:[address] [facility] Creatinine 0.83 0.72 - 1.25 mg/dL 06/05/2021 11:[address] [facility] Alkaline Phosphatase 166(H) 40 - 150 U/L 06/05/2021 11:[address] [facility] ALT 34 0 - 61 U/L 06/05/2021 11:[address] [facility] AST 17 5 - 34 U/L 06/05/2021 11:[address] [facility] Protein Total 8.0 6.4 - 8.3 gm/dL 06/05/2021 11:[address] [facility] Albumin 3.6 3.5 - 5.2 gm/dL 06/05/2021 11:[address] [facility] Bilirubin Total <0.1(L) 0.2 - 1.2 mg/dL 06/05/2021 11:[address] [facility] eGFR by MDRD >60 >60 mL/min/1.7 3m2 06/05/2021 11:[address] [facility] eGFR by MDRD >60 >60 mL/min/1.7 3m2 06/05/2021 11:[address] [facility] Blood BLOOD SPECIMEN / Unknown Venipuncture / Unknown 06/05/2021 4:39 AM [facility] 06/05/2021 10:29 AM [facility] Lamberto De La Cruz MD LAB - CHEMISTRY JOSE ENRIQUE VELA [facility] Organization Address City/State/ZIP Co de Phone Number [facility] [address] [place] [address] documented in this encounter Visit Diagnoses Not on filedocumented in this encounter Care Teams Stick Feeder Relationship Specialty Start Date End Date Pepe Martel MD [address] [place] [id number] PCP - General 08/14/16 documented as of this encounter
--- OUTSIDE RECORDS SUMMARY | 2024-05-23 03:20 | XMS_ITS | Encounter Summary ---
Author Organization [facility] Address [address] [facility] [place] [address] Care Team Providers Care Teletray Operator Name Role Phone Pepe Martel MD Primary Care Provider [phone] Encounter Details Date Type Department Care Team (Late st Contact Info) Description 04/21/2021 Lab Requisition [facility] [address] [place] [address] Davon Laws MD [address] [place] [address] Social History Tobacco Use Types [...] Associated Diagnosis Comments VANCOMYCIN LEVEL TROUGH STAT 04/21/2021 3:30 AM STABLE HELPER documented in this encounter Results * VANCOMYCIN LEVEL TROUGH (04/21/2021 3:30 AM STABLE HELPER) Vancomycin Trough 19.1 10.0 - 20.0 ug/mL 04/21/2021 11:26 AM STABLE HELPER [facility] Blood BLOOD SPECIMEN / Unknown Venipuncture / Unknown 04/21/2021 3:30 AM STABLE HELPER 04/21/2021 10:55 AM STABLE HELPER Davno Laws MD LAB - CHEMISTRY JOSE ENRIQUE VELA [facility] Organization Address City/State/[facility] Co de Phone Number [facility] [address] [place] [address] documented in this encounter Visit Diagnoses Not on filedocumented in this encounter Care Teams Teletray Operator Relationship Specialty Start Date End Date Pepe Martel MD [address] [place] [id number] PCP - General 08/14/16 documented as of this encounter
--- OUTSIDE RECORDS SUMMARY | 2024-05-23 03:20 | XMS_ITS | Encounter Summary ---
Author Organization [facility] Address [address] [address] Care Team Providers Care Paper Bag Maker Name Role Phone Pepe Martel MD Primary Care Provider [phone] Encounter Details Date Type Department Care Team (Late st Contact Info) Description 06/26/2021 Lab Requisition [facility] [address] [place] [address] [place] [address] [place] [address] Social History Tobacco Use Types Packs/Day Years [...] Diagnosis Comments CBC W AUTO DIFFERENTIAL STAT 06/26/2021 5:22 AM EMPLOYMENT COUNSELOR COMPREHENSIVE METABOLIC PANEL STAT 06/26/2021 5:22 AM EMPLOYMENT COUNSELOR documented in this encounter Results * (ABNORMAL) CBC WITH DIFFERENTIAL (06/26/2021 5:22 AM EMPLOYMENT COUNSELOR) WBC 8.0 4.4 - 10.7 x10E9/L 06/26/2021 9:25 AM EMPLOYMENT COUNSELOR [facility] WBC Corrected 06/26/2021 9:25 AM EMPLOYMENT COUNSELOR [facility] RBC 4.11 3.80 - 5.40 x10E12/L 06/26/2021 9:25 AM EMPLOYMENT COUNSELOR [facility] Hemoglobin 11.0(L) 12.0 - 17.6 gm/dL 06/26/2021 9:25 AM EMPLOYMENT COUNSELOR [facility] Hematocrit 35.3 35.2 - 51.7 % 06/26/2021 9:25 AM EMPLOYMENT COUNSELOR [facility] MCV 85.9 80.7 - 98.3 fl 06/26/2021 9:25 AM EMPLOYMENT COUNSELOR [facility] MCH 26.8 26.7 - 34.0 pg 06/26/2021 9:25 AM EMPLOYMENT COUNSELOR [facility] MCHC 31.2 30.8 - 35.9 gm/dL 06/26/2021 9:25 AM EMPLOYMENT COUNSELOR [facility] Platelet Count 402 153 - 416 x10E9/L 06/26/2021 9:25 AM EMPLOYMENT COUNSELOR [facility] RDW-CV 12.8 12.1 - 14.9 % 06/26/2021 9:25 AM EMPLOYMENT COUNSELOR [facility] MPV 10.2 9.4 - 12.9 fl 06/26/2021 9:25 AM EMPLOYMENT COUNSELOR [facility] Neutrophils % 61.5 44.0 - 73.0 % 06/26/2021 9:25 AM EMPLOYMENT COUNSELOR [facility] Lymphocytes % 22.2 20.0 - 43.0 % 06/26/2021 9:25 AM EMPLOYMENT COUNSELOR [facility] Monocytes % 9.6 5.0 - 13.0 % 06/26/2021 9:25 AM [facility] Eosinophils % 6.0 0.0 - 6.0 % 06/26/2021 9:25 AM [facility] Basophils % 0.4 0.0 - 2.0 % 06/26/2021 9:25 AM [facility] Immature Granulocytes 0.3 0 - 1 % 06/26/2021 9:25 AM [facility] Neutrophil Absolute 4.92 2.01 - 7.14 x10E9/L 06/26/2021 9:25 AM [facility] Lymphocytes Absolute 1.77 1.07 - 3.94 x10E9/L 06/26/2021 9:25 AM [facility] Monocytes Absolute 0.77 0.26 - 1.07 x10E9/L 06/26/2021 9:25 AM [facility] Eosinophils Absolute 0.48(H) 0 - 0.47 x10E9/L 06/26/2021 9:25 AM [facility] Basophils Absolute 0.03 0 - 0.08 x10E9/L 06/26/2021 9:25 AM [facility] Immature Granulocytes Absolute 0.02 0.00 - 0.06 x10E9/L 06/26/2021 9:25 AM [facility] nRBC Auto 0 /100 WBC 06/26/2021 9:25 AM [facility] Blood BLOOD SPECIMEN / Unknown Venipuncture / Unknown 06/26/2021 5:22 AM [facility] 06/26/2021 9:06 AM [facility] Vinicio Quintanilla MD LAB - HEMATOLOGY ORD ERABLES [facility] [address] [place] [address] * (ABNORMAL) COMPREHENSIVE METABOLIC PANEL (06/26/2021 5:22 AM [facility]) Glucose 118(H) 70 - 105 mg/dL 06/26/2021 9:55 AM [facility] Sodium 143 136 - 145 mmol/L 06/26/2021 9:55 AM [facility] Potassium 4.5 3.5 - 5.1 mmol/L 06/26/2021 9:55 AM [facility] Chloride 103 98 - 107 mmol/L 06/26/2021 9:55 AM [facility] CO2 29 23 - 31 mmol/L 06/26/2021 9:55 AM [facility] Calcium 9.7 8.4 - 10.4 mg/dL 06/26/2021 9:55 AM [facility] Anion Gap 11 8 - 18 mmol/L 06/26/2021 9:55 AM [facility] BUN 35(H) 8.9 - 20.6 mg/dL 06/26/2021 9:55 AM [facility] Creatinine 1.00 0.72 - 1.25 mg/dL 06/26/2021 9:55 AM [facility] Alkaline Phosphatase 131 40 - 150 U/L 06/26/2021 9:55 AM [facility] ALT 39 0 - 61 U/L 06/26/2021 9:55 AM [facility] AST 20 5 - 34 U/L 06/26/2021 9:55 AM [facility] Protein Total 7.7 6.4 - 8.3 gm/dL 06/26/2021 9:55 AM [facility] Albumin 3.7 3.5 - 5.2 gm/dL 06/26/2021 9:55 AM [facility] Bilirubin Total 0.2 0.2 - 1.2 mg/dL 06/26/2021 9:55 AM [facility] eGFR by MDRD >60 >60 mL/min/1.7 3m2 06/26/2021 9:55 AM [facility] eGFR by MDRD >60 >60 mL/min/1.7 3m2 06/26/2021 9:55 AM [facility] Blood BLOOD SPECIMEN / Unknown Venipuncture / Unknown 06/26/2021 5:22 AM EMPLOYMENT COUNSELOR 06/26/2021 9:06 AM EMPLOYMENT COUNSELOR Vinicio Quintanilla MD LAB - CHEMISTRY JOSE ENRIQUE VELA [facility] Organization Address City/State/ZIP Co de Phone Number [facility] [address] [place], [place] [id number] documented in this encounter Visit Diagnoses Not on filedocumented in this encounter Care Teams Paper Bag Maker Relationship Specialty Start Date End Date Pepe Martel MD [address] [facility] [address] [place] [address] PCP - General 08/14/16 documented as of this encounter
--- OUTSIDE RECORDS SUMMARY | 2024-05-23 03:20 | XMS_ITS | Encounter Summary ---
Author Organization [facility] Address [address] [place] [address] Care Team Providers Care Mannequin Molder Name Role Phone Pepe Martel MD Primary Care Provider [phone] Encounter Details Date Type Department Care Team (Late st Contact Info) Description 07/03/2021 Lab Requisition [facility] [address] [place] [address] [place] [address] [place] [address] Social History Tobacco Use Types Packs/Day Years [...] Associated Diagnosis Comments SLIDE SCAN HEMATOLOGY Routine 07/03/2021 4:24 AM LAMP ASSEMBLER CBC W AUTO DIFFERENTIAL STAT 07/03/2021 4:24 AM LAMP ASSEMBLER COMPREHENSIVE METABOLIC PANEL STAT 07/03/2021 4:24 AM LAMP ASSEMBLER documented in this encounter Results * (ABNORMAL) SLIDE SCAN HEMATOLOGY (07/03/2021 4:24 AM LAMP ASSEMBLER) Clumped Platelets 1+(A) None 07/03/2021 10:54 AM LAMP ASSEMBLER [facility] Blood BLOOD SPECIMEN / Unknown Venipuncture / Unknown 07/03/2021 4:24 AM LAMP ASSEMBLER 07/03/2021 10:11 AM LAMP ASSEMBLER Vinicio Quintanilla MD LAB - HEMATOLOGY ORD ERABLES Performing Organization Address City/State/[facility] Co de Phone Number [facility] [address] [place] [address] * (ABNORMAL) CBC WITH DIFFERENTIAL (07/03/2021 4:24 AM LAMP ASSEMBLER) WBC 10.6 4.4 - 10.7 x10E9/L 07/03/2021 10:40 AM LAMP ASSEMBLER [facility] WBC Corrected 07/03/2021 10:40 AM LAMP ASSEMBLER [facility] RBC 4.32 3.80 - 5.40 x10E12/L 07/03/2021 10:40 AM LAMP ASSEMBLER [facility] Hemoglobin 11.1(L) 12.0 - 17.6 gm/dL 07/03/2021 10:40 AM LAMP ASSEMBLER [facility] Hematocrit 36.5 35.2 - 51.7 % 07/03/2021 10:40 AM LAMP ASSEMBLER [facility] MCV 84.5 80.7 - 98.3 fl 07/03/2021 10:40 AM LAMP ASSEMBLER [facility] MCH 25.7(L) 26.7 - 34.0 pg 07/03/2021 10:40 AM [facility] MCHC 30.4(L) 30.8 - 35.9 gm/dL 07/03/2021 10:40 AM [facility] Platelet Count 303 153 - 416 x10E9/L 07/03/2021 10:40 AM [facility] RDW-CV 13.1 12.1 - 14.9 % 07/03/2021 10:40 AM [facility] MPV 10.3 9.4 - 12.9 fl 07/03/2021 10:40 AM [facility] Neutrophils % 68.5 44.0 - 73.0 % 07/03/2021 10:40 AM [facility] Lymphocytes % 18.9(L) 20.0 - 43.0 % 07/03/2021 10:40 AM [facility] Monocytes % 8.2 5.0 - 13.0 % 07/03/2021 10:40 AM [facility] Eosinophils % 3.6 0.0 - 6.0 % 07/03/2021 10:40 AM [facility] Basophils % 0.4 0.0 - 2.0 % 07/03/2021 10:40 AM [facility] Immature Granulocytes 0.4 0 - 1 % 07/03/2021 10:40 AM [facility] Neutrophil Absolute 7.23(H) 2.01 - 7.14 x10E9/L 07/03/2021 10:40 AM [facility] Lymphocytes Absolute 1.99 1.07 - 3.94 x10E9/L 07/03/2021 10:40 AM [facility] Monocytes Absolute 0.87 0.26 - 1.07 x10E9/L 07/03/2021 10:40 AM [facility] Eosinophils Absolute 0.38 0 - 0.47 x10E9/L 07/03/2021 10:40 AM [facility] Basophils Absolute 0.04 0 - 0.08 x10E9/L 07/03/2021 10:40 AM [facility] Immature Granulocytes Absolute 0.04 0.00 - 0.06 x10E9/L 07/03/2021 10:40 AM [facility] nRBC Auto 0 /100 WBC 07/03/2021 10:40 AM [facility] Blood BLOOD SPECIMEN / Unknown Venipuncture / Unknown 07/03/2021 4:24 AM LAMP ASSEMBLER 07/03/2021 10:11 AM [facility] Vinicio Quintanilla MD LAB - HEMATOLOGY ORD ERABLES [facility] [address] [place] [address] * (ABNORMAL) COMPREHENSIVE METABOLIC PANEL (07/03/2021 4:24 AM [facility]) Glucose 119(H) 70 - 105 mg/dL 07/03/2021 11:02 AM [facility] Sodium 142 136 - 145 mmol/L 07/03/2021 11:02 AM [facility] Potassium 4.2 3.5 - 5.1 mmol/L 07/03/2021 11:02 AM [facility] Chloride 103 98 - 107 mmol/L 07/03/2021 11:02 AM [facility] CO2 26 23 - 31 mmol/L 07/03/2021 11:02 AM [facility] Calcium 9.7 8.4 - 10.4 mg/dL 07/03/2021 11:02 AM [facility] Anion Gap 13 8 - 18 mmol/L 07/03/2021 11:02 AM [facility] BUN 38(H) 8.9 - 20.6 mg/dL 07/03/2021 11:02 AM [facility] Creatinine 1.01 0.72 - 1.25 mg/dL 07/03/2021 11:02 AM [facility] Alkaline Phosphatase 143 40 - 150 U/L 07/03/2021 11:02 AM [facility] ALT 36 0 - 61 U/L 07/03/2021 11:02 AM [facility] AST 16 5 - 34 U/L 07/03/2021 11:02 AM [facility] Protein Total 7.6 6.4 - 8.3 gm/dL 07/03/2021 11:02 AM [facility] Albumin 3.7 3.5 - 5.2 gm/dL 07/03/2021 11:02 AM [facility] Bilirubin Total 0.1(L) 0.2 - 1.2 mg/dL 07/03/2021 11:02 AM LAMP ASSEMBLER [facility] eGFR by MDRD >60 >60 mL/min/1.7 3m2 07/03/2021 11:02 AM LAMP ASSEMBLER [facility] eGFR by MDRD >60 >60 mL/min/1.7 3m2 07/03/2021 11:02 AM LAMP ASSEMBLER [facility] Blood BLOOD SPECIMEN / Unknown Venipuncture / Unknown 07/03/2021 4:24 AM LAMP ASSEMBLER 07/03/2021 10:11 AM LAMP ASSEMBLER Vinicio Quintanilla MD LAB - CHEMISTRY JOSE ENRIQUE VELA [facility] Organization Address City/State/ZIP Co de Phone Number [facility] [address] [place] [address] documented in this encounter Visit Diagnoses Not on filedocumented in this encounter Care Teams Mannequin Molder Relationship Specialty Start Date End Date Pepe Martel MD [address] [place] [id number] PCP - General 08/14/16 documented as of this encounter
--- OUTSIDE RECORDS SUMMARY | 2024-05-23 03:20 | XMS_ITS | Encounter Summary ---
Author Organization [facility] Address [address] [facility] [place] [address] Care Team Providers Care Grade Foreman Name Role Phone Pepe Martel MD Primary Care Provider [phone] Encounter Details Date Type Department Care Team (Late st Contact Info) Description 05/26/2021 Lab Requisition [facility] [address] [place] [address] Lamberto De La Cruz MD [address] [facility] [address] [place] [address] Social History Tobacco Use Types [...] Diagnosis Comments CBC W AUTO DIFFERENTIAL STAT 05/26/2021 4:30 AM MILLING MACHINE TENDER COMPREHENSIVE METABOLIC PANEL STAT 05/26/2021 4:30 AM MILLING MACHINE TENDER documented in this encounter Results * (ABNORMAL) CBC WITH DIFFERENTIAL (05/26/2021 4:30 AM MILLING MACHINE TENDER) WBC 10.2 4.4 - 10.7 x10E9/L 05/26/2021 10:28 AM MILLING MACHINE TENDER [facility] WBC Corrected 05/26/2021 10:28 AM MILLING MACHINE TENDER [facility] RBC 3.89 3.80 - 5.40 x10E12/L 05/26/2021 10:28 AM MILLING MACHINE TENDER [facility] Hemoglobin 10.8(L) 12.0 - 17.6 gm/dL 05/26/2021 10:28 AM MILLING MACHINE TENDER [facility] Hematocrit 33.6(L) 35.2 - 51.7 % 05/26/2021 10:28 AM MILLING MACHINE TENDER [facility] MCV 86.4 80.7 - 98.3 fl 05/26/2021 10:28 AM MILLING MACHINE TENDER [facility] MCH 27.8 26.7 - 34.0 pg 05/26/2021 10:28 AM MILLING MACHINE TENDER [facility] MCHC 32.1 30.8 - 35.9 gm/dL 05/26/2021 10:28 AM MILLING MACHINE TENDER [facility] Platelet Count 442(H) 153 - 416 x10E9/L 05/26/2021 10:28 AM MILLING MACHINE TENDER [facility] RDW-CV 12.1 12.1 - 14.9 % 05/26/2021 10:28 AM MILLING MACHINE TENDER [facility] MPV 10.0 9.4 - 12.9 fl 05/26/2021 10:28 AM MILLING MACHINE TENDER [facility] Neutrophils % 75.1(H) 44.0 - 73.0 % 05/26/2021 10:28 AM MILLING MACHINE TENDER [facility] Lymphocytes % 10.9(L) 20.0 - 43.0 % 05/26/2021 10:[address] [facility] Monocytes % 10.6 5.0 - 13.0 % 05/26/2021 10:[address] [facility] Eosinophils % 2.9 0.0 - 6.0 % 05/26/2021 10:[address] [facility] Basophils % 0.2 0.0 - 2.0 % 05/26/2021 10:[address] [facility] Immature Granulocytes 0.3 0 - 1 % 05/26/2021 10:[address] [facility] Neutrophil Absolute 7.63(H) 2.01 - 7.14 x10E9/L 05/26/2021 10:[address] [facility] Lymphocytes Absolute 1.11 1.07 - 3.94 x10E9/L 05/26/2021 10:[address] [facility] Monocytes Absolute 1.08(H) 0.26 - 1.07 x10E9/L 05/26/2021 10:[address] [facility] Eosinophils Absolute 0.29 0 - 0.47 x10E9/L 05/26/2021 10:[address] [facility] Basophils Absolute 0.02 0 - 0.08 x10E9/L 05/26/2021 10:[address] [facility] Immature Granulocytes Absolute 0.03 0.00 - 0.06 x10E9/L 05/26/2021 10:[address] [facility] nRBC Auto 0 /100 WBC 05/26/2021 10:[address] [facility] Blood BLOOD SPECIMEN / Unknown Venipuncture / Unknown 05/26/2021 4:30 AM [facility] 05/26/2021 9:55 AM [facility] Lamberto De La Cruz MD LAB - HEMATOLOGY ORD ERABLES [facility] [address] [place] [address] * (ABNORMAL) COMPREHENSIVE METABOLIC PANEL (05/26/2021 4:30 AM [facility]) [facility] Glucose 98 70 - 105 mg/dL 05/26/2021 10:[address] [facility] Sodium 135(L) 136 - 145 mmol/L 05/26/2021 10:[address] [facility] Potassium 5.0 3.5 - 5.1 mmol/L 05/26/2021 10:[address] [facility] Chloride 99 98 - 107 mmol/L 05/26/2021 10:[address] [facility] CO2 25 23 - 31 mmol/L 05/26/2021 10:[address] [facility] Calcium 9.4 8.4 - 10.4 mg/dL 05/26/2021 10:[address] [facility] Anion Gap 11 8 - 18 mmol/L 05/26/2021 10:[address] [facility] BUN 20 8.9 - 20.6 mg/dL 05/26/2021 10:[address] [facility] Creatinine 0.81 0.72 - 1.25 mg/dL 05/26/2021 10:[address] [facility] Alkaline Phosphatase 109 40 - 150 U/L 05/26/2021 10:[address] [facility] ALT 32 0 - 61 U/L 05/26/2021 10:[address] [facility] AST 21 5 - 34 U/L 05/26/2021 10:[address] [facility] Protein Total 7.3 6.4 - 8.3 gm/dL 05/26/2021 10:[address] [facility] Albumin 3.6 3.5 - 5.2 gm/dL 05/26/2021 10:[address] [facility] Bilirubin Total <0.1(L) 0.2 - 1.2 mg/dL 05/26/2021 10:[address] [facility] eGFR by MDRD >60 >60 mL/min/1.7 3m2 05/26/2021 10:[address] [facility] eGFR by MDRD >60 >60 mL/min/1.7 3m2 05/26/2021 10:[address] [facility] Blood BLOOD SPECIMEN / Unknown Venipuncture / Unknown 05/26/2021 4:30 AM MILLING MACHINE TENDER 05/26/2021 9:55 AM [facility] Lamberto De La Cruz MD LAB - CHEMISTRY JOSE ENRIQUE VELA [facility] Organization Address City/State/ZIP Co de Phone Number [facility] [address] [place] [address] documented in this encounter Visit Diagnoses Not on filedocumented in this encounter Care Teams Grade Foreman Relationship Specialty Start Date End Date Pepe Martel MD [address] [place] [id number] PCP - General 08/14/16 documented as of this encounter
--- OUTSIDE RECORDS SUMMARY | 2024-05-23 03:20 | XMS_ITS | Encounter Summary ---
Author Organization [facility] Address [address] [place] [address] Care Team Providers Care Copy Supervisor Name Role Phone Pepe Martel MD Primary Care Provider [phone] Encounter Details Date Type Department Care Team (Late st Contact Info) Description 05/08/2021 Lab Requisition [facility] [address] [place] [address] Lamberto De La Cruz MD [address] [facility] [address] [place] [address] Social History Tobacco Use Types [...] Diagnosis Comments CBC W AUTO DIFFERENTIAL Routine 05/08/2021 3:30 AM RN QUALITY COMPREHENSIVE METABOLIC PANEL Routine 05/08/2021 3:30 AM RN QUALITY documented in this encounter Results * (ABNORMAL) COMPREHENSIVE METABOLIC PANEL (05/08/2021 3:30 AM RN QUALITY) Glucose 111(H) 70 - 105 mg/dL 05/08/2021 11:21 AM RN QUALITY [facility] Sodium 139 136 - 145 mmol/L 05/08/2021 11:21 AM RN QUALITY [facility] Potassium 4.7 3.5 - 5.1 mmol/L 05/08/2021 11:21 AM RN QUALITY [facility] Chloride 100 98 - 107 mmol/L 05/08/2021 11:21 AM RN QUALITY [facility] CO2 27 23 - 31 mmol/L 05/08/2021 11:21 AM RN QUALITY [facility] Calcium 9.9 8.4 - 10.4 mg/dL 05/08/2021 11:21 AM RN QUALITY [facility] Anion Gap 12 8 - 18 mmol/L 05/08/2021 11:21 AM RN QUALITY [facility] BUN 31(H) 8.9 - 20.6 mg/dL 05/08/2021 11:21 AM RN QUALITY [facility] Creatinine 0.96 0.72 - 1.25 mg/dL 05/08/2021 11:21 AM RN QUALITY [facility] Alkaline Phosphatase 103 40 - 150 U/L 05/08/2021 11:21 AM RN QUALITY [facility] ALT 35 0 - 61 U/L 05/08/2021 11:21 AM RN QUALITY [facility] AST 21 5 - 34 U/L 05/08/2021 11:21 AM RN QUALITY [facility] Protein Total 7.8 6.4 - 8.3 gm/dL 05/08/2021 11:21 AM RN QUALITY [facility] Albumin 3.9 3.5 - 5.2 gm/dL 05/08/2021 11:21 AM RN QUALITY [facility] Bilirubin Total 0.2 0.2 - 1.2 mg/dL 05/08/2021 11:[address] [facility] eGFR by MDRD >60 >60 mL/min/1.7 3m2 05/08/2021 11:[address] [facility] eGFR by MDRD >60 >60 mL/min/1.7 3m2 05/08/2021 11:[address] [facility] Blood BLOOD SPECIMEN / Unknown Venipuncture / Unknown 05/08/2021 3:30 AM RN QUALITY 05/08/2021 10:47 AM RN QUALITY Lamberto De La Cruz MD LAB - CHEMISTRY ORDE MIRIAN [facility] Organization Address City/State/ZIP Co de Phone Number [facility] [address] [place] [address] * (ABNORMAL) CBC WITH DIFFERENTIAL (05/08/2021 3:30 AM RN QUALITY) WBC 7.1 4.4 - 10.7 x10E9/L 05/08/2021 10:[address] [facility] WBC Corrected 05/08/2021 10:[address] [facility] RBC 4.11 3.80 - 5.40 x10E12/L 05/08/2021 10:[address] [facility] Hemoglobin 11.5(L) 12.0 - 17.6 gm/dL 05/08/2021 10:[address] [facility] Hematocrit 36.8 35.2 - 51.7 % 05/08/2021 10:[address] [facility] MCV 89.5 80.7 - 98.3 fl 05/08/2021 10:[address] [facility] MCH 28.0 26.7 - 34.0 pg 05/08/2021 10:[address] [facility] MCHC 31.3 30.8 - 35.9 gm/dL 05/08/2021 10:[address] [facility] Platelet Count 442(H) 153 - 416 x10E9/L 05/08/2021 10:[address] [facility] RDW-CV 13.2 12.1 - 14.9 % 05/08/2021 10:[address] [facility] MPV 10.1 9.4 - 12.9 fl 05/08/2021 10:[address] [facility] Neutrophils % 68.3 44.0 - 73.0 % 05/08/2021 10:[address] [facility] Lymphocytes % 18.0(L) 20.0 - 43.0 % 05/08/2021 10:[address] [facility] Monocytes % 8.6 5.0 - 13.0 % 05/08/2021 10:[address] [facility] Eosinophils % 4.6 0.0 - 6.0 % 05/08/2021 10:[address] [facility] Basophils % 0.4 0.0 - 2.0 % 05/08/2021 10:[address] [facility] Immature Granulocytes 0.1 0 - 1 % 05/08/2021 10:[address] [facility] Neutrophil Absolute 4.84 2.01 - 7.14 x10E9/L 05/08/2021 10:[address] [facility] Lymphocytes Absolute 1.28 1.07 - 3.94 x10E9/L 05/08/2021 10:[address] [facility] Monocytes Absolute 0.61 0.26 - 1.07 x10E9/L 05/08/2021 10:[address] [facility] Eosinophils Absolute 0.33 0 - 0.47 x10E9/L 05/08/2021 10:[address] [facility] Basophils Absolute 0.03 0 - 0.08 x10E9/L 05/08/2021 10:[address] [facility] Immature Granulocytes Absolute 0.01 0.00 - 0.06 x10E9/L 05/08/2021 10:[address] [facility] nRBC Auto 0 /100 WBC 05/08/2021 10:[address] [facility] Blood BLOOD SPECIMEN / Unknown Venipuncture / Unknown 05/08/2021 3:30 AM RN QUALITY 05/08/2021 10:47 AM RN QUALITY Lamberto De La Cruz MD LAB - HEMATOLOGY ORD ERABLES [facility] [address] [place], [place] [id number] documented in this encounter Visit Diagnoses Not on filedocumented in this encounter Care Teams Copy Supervisor Relationship Specialty Start Date End Date Pepe Martel MD [address] [place] [phone] PCP - General 08/14/16 documented as of this encounter
--- OUTSIDE RECORDS SUMMARY | 2024-05-23 03:20 | XMS_ITS | Encounter Summary ---
Author Organization [facility] Address [address] [facility] [place] [address] Care Team Providers Care Health/Safety Job Titles Name Role Phone Pepe Martel MD Primary Care Provider [phone] Encounter Details Date Type Department Care Team (Late st Contact Info) Description 06/23/2021 Lab Requisition [facility] [address] [place] [address] [place] [address] [place] [address] Social History Tobacco Use Types Packs/Day Years [...] Diagnosis Comments CBC W AUTO DIFFERENTIAL STAT 06/23/2021 3:33 AM SOCIOLOGY RESEARCH ASSISTANT COMPREHENSIVE METABOLIC PANEL STAT 06/23/2021 3:33 AM SOCIOLOGY RESEARCH ASSISTANT documented in this encounter Results * (ABNORMAL) CBC WITH DIFFERENTIAL (06/23/2021 3:33 AM SOCIOLOGY RESEARCH ASSISTANT) WBC 9.1 4.4 - 10.7 x10E9/L 06/23/2021 10:34 AM SOCIOLOGY RESEARCH ASSISTANT [facility] WBC Corrected 06/23/2021 10:34 AM SOCIOLOGY RESEARCH ASSISTANT [facility] RBC 4.45 3.80 - 5.40 x10E12/L 06/23/2021 10:34 AM SOCIOLOGY RESEARCH ASSISTANT [facility] Hemoglobin 11.7(L) 12.0 - 17.6 gm/dL 06/23/2021 10:34 AM SOCIOLOGY RESEARCH ASSISTANT [facility] Hematocrit 38.5 35.2 - 51.7 % 06/23/2021 10:34 AM SOCIOLOGY RESEARCH ASSISTANT [facility] MCV 86.5 80.7 - 98.3 fl 06/23/2021 10:34 AM SOCIOLOGY RESEARCH ASSISTANT [facility] MCH 26.3(L) 26.7 - 34.0 pg 06/23/2021 10:34 AM SOCIOLOGY RESEARCH ASSISTANT [facility] MCHC 30.4(L) 30.8 - 35.9 gm/dL 06/23/2021 10:34 AM SOCIOLOGY RESEARCH ASSISTANT [facility] Platelet Count 438(H) 153 - 416 x10E9/L 06/23/2021 10:34 AM SOCIOLOGY RESEARCH ASSISTANT [facility] RDW-CV 12.8 12.1 - 14.9 % 06/23/2021 10:34 AM SOCIOLOGY RESEARCH ASSISTANT [facility] MPV 10.3 9.4 - 12.9 fl 06/23/2021 10:34 AM SOCIOLOGY RESEARCH ASSISTANT [facility] Neutrophils % 69.5 44.0 - 73.0 % 06/23/2021 10:34 AM SOCIOLOGY RESEARCH ASSISTANT [facility] Lymphocytes % 16.4(L) 20.0 - 43.0 % 06/23/2021 10:[address] [facility] Monocytes % 7.9 5.0 - 13.0 % 06/23/2021 10:[address] [facility] Eosinophils % 5.3 0.0 - 6.0 % 06/23/2021 10:[address] [facility] Basophils % 0.6 0.0 - 2.0 % 06/23/2021 10:[address] [facility] Immature Granulocytes 0.3 0 - 1 % 06/23/2021 10:[address] [facility] Neutrophil Absolute 6.32 2.01 - 7.14 x10E9/L 06/23/2021 10:[address] [facility] Lymphocytes Absolute 1.49 1.07 - 3.94 x10E9/L 06/23/2021 10:[address] [facility] Monocytes Absolute 0.72 0.26 - 1.07 x10E9/L 06/23/2021 10:[address] [facility] Eosinophils Absolute 0.48(H) 0 - 0.47 x10E9/L 06/23/2021 10:[address] [facility] Basophils Absolute 0.05 0 - 0.08 x10E9/L 06/23/2021 10:[address] [facility] Immature Granulocytes Absolute 0.03 0.00 - 0.06 x10E9/L 06/23/2021 10:[address] [facility] nRBC Auto 0 /100 WBC 06/23/2021 10:[address] [facility] Blood BLOOD SPECIMEN / Unknown Venipuncture / Unknown 06/23/2021 3:33 AM SOCIOLOGY RESEARCH ASSISTANT 06/23/2021 9:33 AM [facility] Vinicio Quintanilla MD LAB - HEMATOLOGY ORD ERABLES [facility] [address] [place] [address] * (ABNORMAL) COMPREHENSIVE METABOLIC PANEL (06/23/2021 3:33 AM [facility]) [facility] Glucose 95 70 - 105 mg/dL 06/23/2021 10:[address] [facility] Sodium 140 136 - 145 mmol/L 06/23/2021 10:[address] [facility] Potassium 5.2(H) 3.5 - 5.1 mmol/L 06/23/2021 10:[address] [facility] Chloride 102 98 - 107 mmol/L 06/23/2021 10:[address] [facility] CO2 22(L) 23 - 31 mmol/L 06/23/2021 10:[address] [facility] Calcium 9.7 8.4 - 10.4 mg/dL 06/23/2021 10:[address] [facility] Anion Gap 16 8 - 18 mmol/L 06/23/2021 10:[address] [facility] BUN 32(H) 8.9 - 20.6 mg/dL 06/23/2021 10:[address] [facility] Creatinine 0.86 0.72 - 1.25 mg/dL 06/23/2021 10:[address] [facility] Alkaline Phosphatase 123 40 - 150 U/L 06/23/2021 10:[address] [facility] ALT 34 0 - 61 U/L 06/23/2021 10:[address] [facility] AST 21 5 - 34 U/L 06/23/2021 10:[address] [facility] Protein Total 7.9 6.4 - 8.3 gm/dL 06/23/2021 10:[address] [facility] Albumin 3.6 3.5 - 5.2 gm/dL 06/23/2021 10:[address] [facility] Bilirubin Total 0.2 0.2 - 1.2 mg/dL 06/23/2021 10:[address] [facility] eGFR by MDRD >60 >60 mL/min/1.7 3m2 06/23/2021 10:[address] [facility] eGFR by MDRD >60 >60 mL/min/1.7 3m2 06/23/2021 10:[address] [facility] Blood BLOOD SPECIMEN / Unknown Venipuncture / Unknown 06/23/2021 3:33 AM [facility] 06/23/2021 9:33 AM [facility] Vinicio Quinatnilla MD LAB - CHEMISTRY JOSE ENRIQUE VELA [facility] Organization Address City/State/ZIP Co de Phone Number [facility] [address] [place] [address] documented in this encounter Visit Diagnoses Not on filedocumented in this encounter Care Teams Health/Safety Job Titles Relationship Specialty Start Date End Date Pepe Martel MD [address] [place] [phone] PCP - General 08/14/16 documented as of this encounter
--- OUTSIDE RECORDS SUMMARY | 2024-05-23 03:20 | XMS_ITS | Encounter Summary ---
Author Organization [facility] Address [address] [place] [address] Care Team Providers Care Travel Director Name Role Phone Pepe Martel MD Primary Care Provider [phone] Encounter Details Date Type Department Care Team (Late st Contact Info) Description 06/18/2021 Lab Requisition [facility] [address] [place] [address] Fredy Sue [address] [place] [address] Social History Tobacco Use Types Packs/Day Years [...] Diagnosis Comments CBC W AUTO DIFFERENTIAL STAT 06/18/2021 4:00 AM THERAPY ADMINISTRATIVE ASSISTANT COMPREHENSIVE METABOLIC PANEL STAT 06/18/2021 4:00 AM THERAPY ADMINISTRATIVE ASSISTANT documented in this encounter Results * (ABNORMAL) CBC WITH DIFFERENTIAL (06/18/2021 4:00 AM THERAPY ADMINISTRATIVE ASSISTANT) WBC 9.9 4.4 - 10.7 x10E9/L 06/18/2021 9:25 AM THERAPY ADMINISTRATIVE ASSISTANT [facility] WBC Corrected 06/18/2021 9:25 AM THERAPY ADMINISTRATIVE ASSISTANT [facility] RBC 4.14 3.80 - 5.40 x10E12/L 06/18/2021 9:25 AM THERAPY ADMINISTRATIVE ASSISTANT [facility] Hemoglobin 11.0(L) 12.0 - 17.6 gm/dL 06/18/2021 9:25 AM THERAPY ADMINISTRATIVE ASSISTANT [facility] Hematocrit 35.8 35.2 - 51.7 % 06/18/2021 9:25 AM THERAPY ADMINISTRATIVE ASSISTANT [facility] MCV 86.5 80.7 - 98.3 fl 06/18/2021 9:25 AM THERAPY ADMINISTRATIVE ASSISTANT [facility] MCH 26.6(L) 26.7 - 34.0 pg 06/18/2021 9:25 AM THERAPY ADMINISTRATIVE ASSISTANT [facility] MCHC 30.7(L) 30.8 - 35.9 gm/dL 06/18/2021 9:25 AM THERAPY ADMINISTRATIVE ASSISTANT [facility] Platelet Count 463(H) 153 - 416 x10E9/L 06/18/2021 9:25 AM THERAPY ADMINISTRATIVE ASSISTANT [facility] RDW-CV 12.4 12.1 - 14.9 % 06/18/2021 9:25 AM THERAPY ADMINISTRATIVE ASSISTANT [facility] MPV 9.9 9.4 - 12.9 fl 06/18/2021 9:25 AM THERAPY ADMINISTRATIVE ASSISTANT [facility] Neutrophils % 70.7 44.0 - 73.0 % 06/18/2021 9:25 AM THERAPY ADMINISTRATIVE ASSISTANT [facility] Lymphocytes % 15.7(L) 20.0 - 43.0 % 06/18/2021 9:25 AM THERAPY ADMINISTRATIVE ASSISTANT [facility] Monocytes % 9.5 5.0 - 13.0 % 06/18/2021 9:25 AM [facility] Eosinophils % 3.5 0.0 - 6.0 % 06/18/2021 9:25 AM [facility] Basophils % 0.3 0.0 - 2.0 % 06/18/2021 9:25 AM [facility] Immature Granulocytes 0.3 0 - 1 % 06/18/2021 9:25 AM [facility] Neutrophil Absolute 7.02 2.01 - 7.14 x10E9/L 06/18/2021 9:25 AM [facility] Lymphocytes Absolute 1.56 1.07 - 3.94 x10E9/L 06/18/2021 9:25 AM [facility] Monocytes Absolute 0.94 0.26 - 1.07 x10E9/L 06/18/2021 9:25 AM [facility] Eosinophils Absolute 0.35 0 - 0.47 x10E9/L 06/18/2021 9:25 AM [facility] Basophils Absolute 0.03 0 - 0.08 x10E9/L 06/18/2021 9:25 AM [facility] Immature Granulocytes Absolute 0.03 0.00 - 0.06 x10E9/L 06/18/2021 9:25 AM [facility] nRBC Auto 0 /100 WBC 06/18/2021 9:25 AM [facility] Blood BLOOD SPECIMEN / Unknown Venipuncture / Unknown 06/18/2021 4:00 AM [facility] 06/18/2021 8:36 AM [facility] Fredy Sue LAB - HEMATOLOGY ORD ERABLES [facility] [address] [place] [address] * (ABNORMAL) COMPREHENSIVE METABOLIC PANEL (06/18/2021 4:00 AM [facility]) [facility] Glucose 116(H) 70 - 105 mg/dL 06/18/2021 9:40 AM [facility] Sodium 142 136 - 145 mmol/L 06/18/2021 9:40 AM [facility] Potassium 4.9 3.5 - 5.1 mmol/L 06/18/2021 9:40 AM [facility] Chloride 108(H) 98 - 107 mmol/L 06/18/2021 9:40 AM [facility] CO2 24 23 - 31 mmol/L 06/18/2021 9:40 AM [facility] Calcium 9.6 8.4 - 10.4 mg/dL 06/18/2021 9:40 AM [facility] Anion Gap 10 8 - 18 mmol/L 06/18/2021 9:40 AM [facility] BUN 34(H) 8.9 - 20.6 mg/dL 06/18/2021 9:40 AM [facility] Creatinine 1.09 0.72 - 1.25 mg/dL 06/18/2021 9:40 AM [facility] Alkaline Phosphatase 141 40 - 150 U/L 06/18/2021 9:40 AM [facility] ALT 43 0 - 61 U/L 06/18/2021 9:40 AM [facility] AST 22 5 - 34 U/L 06/18/2021 9:40 AM [facility] Protein Total 8.1 6.4 - 8.3 gm/dL 06/18/2021 9:40 AM [facility] Albumin 3.7 3.5 - 5.2 gm/dL 06/18/2021 9:40 AM [facility] Bilirubin Total 0.2 0.2 - 1.2 mg/dL 06/18/2021 9:40 AM [facility] eGFR by MDRD >60 >60 mL/min/1.7 3m2 06/18/2021 9:40 AM [facility] eGFR by MDRD >60 >60 mL/min/1.7 3m2 06/18/2021 9:40 AM [facility] Blood BLOOD SPECIMEN / Unknown Venipuncture / Unknown 06/18/2021 4:00 AM THERAPY ADMINISTRATIVE ASSISTANT 06/18/2021 8:36 AM [facility] Fredy Sue LAB - CHEMISTRY JOSE ENRIQUE VELA [facility] Organization Address City/State/ZIP Co de Phone Number [facility] [address] [place] [address] documented in this encounter Visit Diagnoses Not on filedocumented in this encounter Care Teams Travel Director Relationship Specialty Start Date End Date Pepe Martel MD [address] [place] [phone] PCP - General 08/14/16 documented as of this encounter
--- OUTSIDE RECORDS SUMMARY | 2024-05-23 03:20 | XMS_ITS | Encounter Summary ---
Author Organization [facility] Address [address] [place] [address] Care Team Providers Care Hadoop Developer Name Role Phone Pepe Martel MD Primary Care Provider [phone] Reason for Referral * Radiology Services (Routine) - Closed Specialty Diagnoses / Procedures Referred By Contac t Referred To Contact CT Scan Diagnoses Abdominal wall abscess Procedures CT ABDOMEN PELVIS W CONTRAST Wen Gallegos MD [address] [place] [address] [address] [facility] [address] [facility] [address] [place] [phone] Referral ID Status Reason Start Date Expiration Date Visits Re quested Visits Authorized [id number] Closed 04/15/2021 04/15/2022 1 1 CARE MANAGEMENT Reason for Visit * Radiology Services (Routine) - Closed Specialty Diagnoses / Procedures Referred By Contac t Referred To Contact CT Scan Diagnoses Abdominal wall abscess Procedures CT ABDOMEN PELVIS W CONTRAST Wen Gallegos MD [address] [place] [address] [address] DIV OF INFECTIOUS [place] [address] [facility] [address] [place] [address] Referral ID Status Reason Start Date Expiration Date Visits Re quested Visits Authorized [id number] Closed 04/15/2021 04/15/2022 1 1 Encounter Details Date Type Department Care Team (Latest Contact Info) Description 04/15/2021 9:00 AM VP CARE MANAGEMENT - 04/15/2021 11:59 PM [facility] Hospital Encounter [facility] [address] [place] [phone] Fredy Medina MD [address] [facility] 2L DIV OF PULMONARY/[place] [address] Discharge Disposition: Home or Self Care Social History Tobacco Use Types Packs/Day Years [...] No 02/15/2021 documented as of this encounter Medications at Time of Discharge Medication Sig Dispensed Refills Start Date End Date artificial tears ophthalmic ointment Instill into both eyes every 8 hours 04/01/2021 bisacodyl (DULCOLAX) 10 MG suppository Insert 1 (one) suppository into the rectum once daily as needed for Constipation 03/12/2021 cefepime 2 g 2,000 mg in 0.9% NaCl IV 0.9 % 50 mL 2,000 (two thousand) mg by Intravenous route every 8 hours 04/01/2021 chlorhexidine (PERIDEX) 0.12 % solution 15 mL by Mouth/Throat route 4 times daily 04/01/2021 clonazePAM (KLONOPIN) 0.5 MG tablet 1 (one) tablet by Enteral Tube route Every 6 Hours (,,,) 04/01/2021 docusate sodium (COLACE) 50 MG/5ML solution 10 mL by Enteral Tube route 2 times daily 03/12/2021 enoxaparin (LOVENOX) 40 MG/0.4ML injection Inject 40 (forty) mg subcutaneously every 12 hours 03/12/2021 levETIRAcetam (KEPPRA) 1000 MG tablet Take 1 (one) tablet by mouth 2 times daily 04/01/2021 metroNIDAZOLE (FLAGYL) 500 MG tablet Take 1 (one) tablet by mouth every 8 hours 04/01/2021 oxyCODONE, immediate release, (ROXICODONE) 5 MG tablet 1 (one) tablet by Enteral Tube route Every 6 Hours (,,,) 12 tablet 04/01/2021 pantoprazole (PROTONIX) 40 MG injection 10 mL by Intravenous route once daily 03/13/2021 propranolol (INDERAL) 20 MG tablet Take 1 (one) tablet by mouth every 8 hours 04/01/2021 psyllium (METAMUCIL) 28 % 1 (one) packet by Per G Tube route once daily 03/13/2021 senna (SENOKOT) 8.6 MG tablet 1 (one) tablet by Enteral Tube route once daily 03/13/2021 vancomycin (VANCOCIN) 1.75-0.9 GM/500ML-% IVPB 500 mL by Intravenous route every 24 hours 04/02/2021 documented as of this encounter Plan of Treatment Not on file documented as of this encounter Procedures Procedure Name Priority Date/Time Associated Diagnosis Comments CT ABDOMEN PELVIS W CONTRAST Routine 04/15/2021 9:49 AM VP CARE MANAGEMENT Abdominal wall abscess documented in this encounter Results * CT ABDOMEN PELVIS W CONTRAST (04/15/2021 9:49 AM VP CARE MANAGEMENT) Anatomical Region Laterality Modality Abdomen, Pelvis Computed Tomogra phy 04/15/2021 10:4 3 AM VP CARE MANAGEMENT Impressions 04/15/2021 2:08 PM VP CARE MANAGEMENT Impression: Interval near resolution of the abdominal wall abscess which now measures 0.7 x 1.4 x 1.2 cm (previously 1.6 x 4.4 x 6.6 cm). No intraperitoneal fluid collection is identified. No free fluid in the abdomen. Report drafted by Jack Dumont (resident) I, Dr. MARIO JULIO have personally reviewed and interpreted this examination/study. This report was electronically signed by MARIO JULIO ??on 04/15/2021 2:08 PM . Narrative 04/15/2021 2:08 PM VP CARE MANAGEMENT Procedure Information DATE: 04/15/2021 9:51 AM EXAMINATION: [...] wall, likely from prior injection. Procedure Note Mario Julio MD - 04/15/2021 Procedure Information DATE: [...] drafted by Jack Dumont (resident) I, Dr. MARIO JULIO have personally reviewed and interpreted this examination/study. This report was electronically signed by MARIO JULIO on 04/15/2021 2:08 PM . Fredy Medina MD CT ORDERABLES documented in this encounter Visit Diagnoses Diagnosis Abdominal wall abscess Cellulitis and abscess of trunk documented in this encounter Administered Medications Inactive Administered Medications - up to 3 most recent administrations Medication Order MAR Action Action Date Dose Rate Site iopamidol (Isovue 370) 76 % contrast Intravenous, CONTRAST ONCE, Starting on Wed04/15/21 at 0921, Until Wed04/16/21 at 0150 $ Given - Contrast 04/15/2021 9:50 AM VP CARE MANAGEMENT 150 mL documented in this encounter Care Teams Hadoop Developer Relationship Specialty Start Date End Date Pepe Martel MD [address] [place] [address] [address] [place] [address] PCP - General 08/14/16 documented as of this encounter
--- OUTSIDE RECORDS SUMMARY | 2024-05-23 03:20 | XMS_ITS | Encounter Summary ---
Author Organization [facility] Health Address [address] [place] [address] Care Team Providers Care Tower Foreman Name Role Phone Pepe Martel MD Primary Care Provider Encounter Details Date Type Department Care Team (Late st Contact Info) Description 05/30/2021 Lab Requisition [facility] [address] [place] [address] Fredy Sue [address] [place] [id number] Social History Tobacco Use Types Packs/Day Years [...] Diagnosis Comments CBC W AUTO DIFFERENTIAL STAT 05/30/2021 4:00 AM DOCK ASSOCIATE COMPREHENSIVE METABOLIC PANEL STAT 05/30/2021 4:00 AM DOCK ASSOCIATE documented in this encounter Results * (ABNORMAL) CBC WITH DIFFERENTIAL (05/30/2021 4:00 AM DOCK ASSOCIATE) WBC 11.5(H) 4.4 - 10.7 x10E9/L 05/30/2021 9:11 AM DOCK ASSOCIATE [facility] WBC Corrected 05/30/2021 9:11 AM DOCK ASSOCIATE [facility] RBC 3.84 3.80 - 5.40 x10E12/L 05/30/2021 9:11 AM DOCK ASSOCIATE [facility] Hemoglobin 10.5(L) 12.0 - 17.6 gm/dL 05/30/2021 9:11 AM DOCK ASSOCIATE [facility] Hematocrit 32.9(L) 35.2 - 51.7 % 05/30/2021 9:11 AM DOCK ASSOCIATE [facility] MCV 85.7 80.7 - 98.3 fl 05/30/2021 9:11 AM DOCK ASSOCIATE [facility] MCH 27.3 26.7 - 34.0 pg 05/30/2021 9:11 AM DOCK ASSOCIATE [facility] MCHC 31.9 30.8 - 35.9 gm/dL 05/30/2021 9:11 AM DOCK ASSOCIATE [facility] Platelet Count 551(H) 153 - 416 x10E9/L 05/30/2021 9:11 AM DOCK ASSOCIATE [facility] RDW-CV 12.0(L) 12.1 - 14.9 % 05/30/2021 9:11 AM DOCK ASSOCIATE [facility] MPV 9.8 9.4 - 12.9 fl 05/30/2021 9:11 AM DOCK ASSOCIATE [facility] Neutrophils % 70.0 44.0 - 73.0 % 05/30/2021 9:11 AM DOCK ASSOCIATE [facility] Lymphocytes % 14.9(L) 20.0 - 43.0 % 05/30/2021 9:11 AM [facility] Monocytes % 10.3 5.0 - 13.0 % 05/30/2021 9:11 AM [facility] Eosinophils % 4.1 0.0 - 6.0 % 05/30/2021 9:11 AM [facility] Basophils % 0.3 0.0 - 2.0 % 05/30/2021 9:11 AM [facility] Immature Granulocytes 0.4 0 - 1 % 05/30/2021 9:11 AM [facility] Neutrophil Absolute 8.06(H) 2.01 - 7.14 x10E9/L 05/30/2021 9:11 AM [facility] Lymphocytes Absolute 1.72 1.07 - 3.94 x10E9/L 05/30/2021 9:11 AM [facility] Monocytes Absolute 1.18(H) 0.26 - 1.07 x10E9/L 05/30/2021 9:11 AM [facility] Eosinophils Absolute 0.47 0 - 0.47 x10E9/L 05/30/2021 9:11 AM [facility] Basophils Absolute 0.03 0 - 0.08 x10E9/L 05/30/2021 9:11 AM [facility] Immature Granulocytes Absolute 0.05 0.00 - 0.06 x10E9/L 05/30/2021 9:11 AM [facility] nRBC Auto 0 /100 WBC 05/30/2021 9:11 AM [facility] Blood BLOOD SPECIMEN / Unknown Venipuncture / Unknown 05/30/2021 4:00 AM [facility] 05/30/2021 8:27 AM [facility] Fredy Sue LAB - HEMATOLOGY ORD ERABLES [facility] [address] [place] [address] * (ABNORMAL) COMPREHENSIVE METABOLIC PANEL (05/30/2021 4:00 AM [facility]) [facility] Glucose 104 70 - 105 mg/dL 05/30/2021 9:24 AM [facility] Sodium 133(L) 136 - 145 mmol/L 05/30/2021 9:24 AM [facility] Potassium 5.4(H) 3.5 - 5.1 mmol/L 05/30/2021 9:24 AM [facility] Chloride 96(L) 98 - 107 mmol/L 05/30/2021 9:24 AM [facility] CO2 26 23 - 31 mmol/L 05/30/2021 9:24 AM [facility] Calcium 9.8 8.4 - 10.4 mg/dL 05/30/2021 9:24 AM [facility] Anion Gap 11 8 - 18 mmol/L 05/30/2021 9:24 AM [facility] BUN 28(H) 8.9 - 20.6 mg/dL 05/30/2021 9:24 AM [facility] Creatinine 0.75 0.72 - 1.25 mg/dL 05/30/2021 9:24 AM [facility] Alkaline Phosphatase 157(H) 40 - 150 U/L 05/30/2021 9:24 AM [facility] ALT 41 0 - 61 U/L 05/30/2021 9:24 AM [facility] AST 21 5 - 34 U/L 05/30/2021 9:24 AM [facility] Protein Total 7.9 6.4 - 8.3 gm/dL 05/30/2021 9:24 AM [facility] Albumin 3.6 3.5 - 5.2 gm/dL 05/30/2021 9:24 AM [facility] Bilirubin Total 0.2 0.2 - 1.2 mg/dL 05/30/2021 9:24 AM [facility] eGFR by MDRD >60 >60 mL/min/1.7 3m2 05/30/2021 9:24 AM [facility] eGFR by MDRD >60 >60 mL/min/1.7 3m2 05/30/2021 9:24 AM [facility] Blood BLOOD SPECIMEN / Unknown Venipuncture / Unknown 05/30/2021 4:00 AM DOCK ASSOCIATE 05/30/2021 8:27 AM [facility] Fredy Sue LAB - CHEMISTRY JOSE ENRIQUE VELA [facility] Organization Address City/State/[facility] [[email or web address]] Co de Phone Number [facility] [address] [place] [address] documented in this encounter Visit Diagnoses Not on filedocumented in this encounter Care Teams Tower Foreman Relationship Specialty Start Date End Date Pepe Martel MD [address] [place] [address] [address] [place] [address] PCP - General 08/14/16 documented as of this encounter
--- OUTSIDE RECORDS SUMMARY | 2024-05-23 03:20 | XMS_ITS | Encounter Summary ---
Author Organization [facility] Health Address [address] [facility] [place] [address] Care Team Providers Care Supervisor Cook Room Name Role Phone Pepe Martel MD Primary Care Provider [phone] Encounter Details Date Type Department Care Team (Late st Contact Info) Description 06/09/2021 Lab Requisition [facility] [address] [place] [address] Social History Tobacco Use Types Packs/Day Years [...] Diagnosis Comments CBC W AUTO DIFFERENTIAL STAT 06/09/2021 4:00 AM PAINT PREPPER COMPREHENSIVE METABOLIC PANEL STAT 06/09/2021 4:00 AM PAINT PREPPER documented in this encounter Results * (ABNORMAL) CBC WITH DIFFERENTIAL (06/09/2021 4:00 AM PAINT PREPPER) WBC 12.1(H) 4.4 - 10.7 x10E9/L 06/09/2021 9:55 AM PAINT PREPPER [facility] WBC Corrected 06/09/2021 9:55 AM PAINT PREPPER [facility] RBC 4.28 3.80 - 5.40 x10E12/L 06/09/2021 9:[address] [facility] Hemoglobin 11.5(L) 12.0 - 17.6 gm/dL 06/09/2021 9:55 AM PAINT PREPPER [facility] Hematocrit 36.9 35.2 - 51.7 % 06/09/2021 9:55 AM PAINT PREPPER [facility] MCV 86.2 80.7 - 98.3 fl 06/09/2021 9:55 AM PAINT PREPPER [facility] MCH 26.9 26.7 - 34.0 pg 06/09/2021 9:55 AM PAINT PREPPER [facility] MCHC 31.2 30.8 - 35.9 gm/dL 06/09/2021 9:55 AM PAINT PREPPER [facility] Platelet Count 533(H) 153 - 416 x10E9/L 06/09/2021 9:[address] [facility] RDW-CV 12.3 12.1 - 14.9 % 06/09/2021 9:55 AM PAINT PREPPER [facility] MPV 9.2(L) 9.4 - 12.9 fl 06/09/2021 9:55 AM PAINT PREPPER [facility] Neutrophils % 69.1 44.0 - 73.0 % 06/09/2021 9:55 AM PAINT PREPPER [facility] Lymphocytes % 14.6(L) 20.0 - 43.0 % 06/09/2021 9:55 AM PAINT PREPPER [facility] Monocytes % 12.6 5.0 - 13.0 % 06/09/2021 9:55 AM PAINT PREPPER [facility] Eosinophils % 2.9 0.0 - 6.0 % 06/09/2021 9:[address] [facility] Basophils % 0.3 0.0 - 2.0 % 06/09/2021 9:[address] [facility] Immature Granulocytes 0.5 0 - 1 % 06/09/2021 9:[address] [facility] Neutrophil Absolute 8.36(H) 2.01 - 7.14 x10E9/L 06/09/2021 9:[address] [facility] Lymphocytes Absolute 1.77 1.07 - 3.94 x10E9/L 06/09/2021 9:[address] [facility] Monocytes Absolute 1.53(H) 0.26 - 1.07 x10E9/L 06/09/2021 9:[address] [facility] Eosinophils Absolute 0.35 0 - 0.47 x10E9/L 06/09/2021 9:[address] [facility] Basophils Absolute 0.04 0 - 0.08 x10E9/L 06/09/2021 9:[address] [facility] Immature Granulocytes Absolute 0.06 0.00 - 0.06 x10E9/L 06/09/2021 9:[address] [facility] nRBC Auto 0 /100 WBC 06/09/2021 9:[address] [facility] Blood BLOOD SPECIMEN / Unknown Venipuncture / Unknown 06/09/2021 4:00 AM PAINT PREPPER 06/09/2021 9:50 AM [facility] LAB - HEMATOLOGY ORD ERABLES Performing Organization Address City/State/[facility] Co de Phone Number [facility] [address] [place] [address] * (ABNORMAL) COMPREHENSIVE METABOLIC PANEL (06/09/2021 4:00 AM [facility]) [facility] Glucose 119(H) 70 - 105 mg/dL 06/09/2021 10:[address] [facility] Sodium 138 136 - 145 mmol/L 06/09/2021 10:[address] [facility] Potassium 5.2(H) 3.5 - 5.1 mmol/L 06/09/2021 10:[address] [facility] Chloride 99 98 - 107 mmol/L 06/09/2021 10:[address] [facility] CO2 25 23 - 31 mmol/L 06/09/2021 10:[address] [facility] Calcium 10.1 8.4 - 10.4 mg/dL 06/09/2021 10:[address] [facility] Anion Gap 14 8 - 18 mmol/L 06/09/2021 10:[address] [facility] BUN 32(H) 8.9 - 20.6 mg/dL 06/09/2021 10:[address] [facility] Creatinine 0.96 0.72 - 1.25 mg/dL 06/09/2021 10:[address] [facility] Alkaline Phosphatase 175(H) 40 - 150 U/L 06/09/2021 10:[address] [facility] ALT 38 0 - 61 U/L 06/09/2021 10:[address] [facility] AST 21 5 - 34 U/L 06/09/2021 10:[address] [facility] Protein Total 8.6(H) 6.4 - 8.3 gm/dL 06/09/2021 10:[address] [facility] Albumin 3.9 3.5 - 5.2 gm/dL 06/09/2021 10:[address] [facility] Bilirubin Total 0.2 0.2 - 1.2 mg/dL 06/09/2021 10:[address] [facility] eGFR by MDRD >60 >60 mL/min/1.7 3m2 06/09/2021 10:[address] [facility] eGFR by MDRD >60 >60 mL/min/1.7 3m2 06/09/2021 10:[address] [facility] Blood BLOOD SPECIMEN / Unknown Venipuncture / Unknown 06/09/2021 4:00 AM PAINT PREPPER 06/09/2021 9:50 AM PAINT PREPPER LAB - CHEMISTRY JOSE ENRIQUE Pena Organization Address City/State/ZIP Co de Phone Number [facility] [address] [place] [address] documented in this encounter Visit Diagnoses Not on filedocumented in this encounter Care Teams Supervisor Cook Room Relationship Specialty Start Date End Date Pepe Martel MD [address] [place] [id number] PCP - General 08/14/16 documented as of this encounter
--- OUTSIDE RECORDS SUMMARY | 2024-05-23 03:20 | XMS_ITS | Encounter Summary ---
Author Organization [facility] Health Address [address] [place] [address] Care Team Providers Care Stem Maker Name Role Phone Pepe Martel MD Primary Care Provider [phone] Encounter Details Date Type Department Care Team (Late st Contact Info) Description 04/14/2021 Lab Requisition [facility] [address] [place] [address] Lamberto De La Cruz MD [address] [facility] [address] [place] [address] Social History Tobacco Use Types [...] Diagnosis Comments CBC W AUTO DIFFERENTIAL STAT 04/14/2021 5:00 AM PASTING INSPECTOR COMPREHENSIVE METABOLIC PANEL STAT 04/14/2021 5:00 AM PASTING INSPECTOR VANCOMYCIN LEVEL TROUGH STAT 04/14/2021 4:00 AM PASTING INSPECTOR documented in this encounter Results * (ABNORMAL) CBC WITH DIFFERENTIAL (04/14/2021 5:00 AM PASTING INSPECTOR) WBC 8.0 4.4 - 10.7 x10E9/L 04/14/2021 10:47 AM PASTING INSPECTOR [facility] WBC Corrected 04/14/2021 10:47 AM PASTING INSPECTOR [facility] RBC 3.81 3.80 - 5.40 x10E12/L 04/14/2021 10:47 AM PASTING INSPECTOR [facility] Hemoglobin 10.5(L) 12.0 - 17.6 gm/dL 04/14/2021 10:47 AM PASTING INSPECTOR [facility] Hematocrit 33.5(L) 35.2 - 51.7 % 04/14/2021 10:47 AM PASTING INSPECTOR [facility] MCV 87.9 80.7 - 98.3 fl 04/14/2021 10:47 AM PASTING INSPECTOR [facility] MCH 27.6 26.7 - 34.0 pg 04/14/2021 10:47 AM PASTING INSPECTOR [facility] MCHC 31.3 30.8 - 35.9 gm/dL 04/14/2021 10:47 AM PASTING INSPECTOR [facility] Platelet Count 452(H) 153 - 416 x10E9/L 04/14/2021 10:47 AM PASTING INSPECTOR [facility] RDW-CV 14.6 12.1 - 14.9 % 04/14/2021 10:47 AM PASTING INSPECTOR [facility] MPV 9.6 9.4 - 12.9 fl 04/14/2021 10:47 AM PASTING INSPECTOR [facility] Neutrophils % 65.2 44.0 - 73.0 % 04/14/2021 10:47 AM PASTING INSPECTOR [facility] Lymphocytes % 17.3(L) 20.0 - 43.0 % 04/14/2021 10:[address] [facility] Monocytes % 12.1 5.0 - 13.0 % 04/14/2021 10:[address] [facility] Eosinophils % 4.7 0.0 - 6.0 % 04/14/2021 10:[address] [facility] Basophils % 0.5 0.0 - 2.0 % 04/14/2021 10:[address] [facility] Immature Granulocytes 0.2 0 - 1 % 04/14/2021 10:[address] [facility] Neutrophil Absolute 5.22 2.01 - 7.14 x10E9/L 04/14/2021 10:[address] [facility] Lymphocytes Absolute 1.39 1.07 - 3.94 x10E9/L 04/14/2021 10:[address] [facility] Monocytes Absolute 0.97 0.26 - 1.07 x10E9/L 04/14/2021 10:[address] [facility] Eosinophils Absolute 0.38 0 - 0.47 x10E9/L 04/14/2021 10:[address] [facility] Basophils Absolute 0.04 0 - 0.08 x10E9/L 04/14/2021 10:[address] [facility] Immature Granulocytes Absolute 0.02 0.00 - 0.06 x10E9/L 04/14/2021 10:[address] [facility] nRBC Auto 0 /100 WBC 04/14/2021 10:[address] [facility] Blood BLOOD SPECIMEN / Unknown Venipuncture / Unknown 04/14/2021 5:00 AM PASTING INSPECTOR 04/14/2021 9:39 AM [facility] Lamberto De La Cruz MD LAB - HEMATOLOGY ORD ERABLES [facility] [address] [place] [address] * (ABNORMAL) COMPREHENSIVE METABOLIC PANEL (04/14/2021 5:00 AM PASTING INSPECTOR) [facility] Glucose 102 70 - 105 mg/dL 04/14/2021 10:[address] [facility] Sodium 138 136 - 145 mmol/L 04/14/2021 10:[address] [facility] Potassium 4.9 3.5 - 5.1 mmol/L 04/14/2021 10:[address] [facility] Chloride 102 98 - 107 mmol/L 04/14/2021 10:[address] [facility] CO2 24 23 - 31 mmol/L 04/14/2021 10:[address] [facility] Calcium 9.8 8.4 - 10.4 mg/dL 04/14/2021 10:[address] [facility] Anion Gap 12 8 - 18 mmol/L 04/14/2021 10:[address] [facility] BUN 23(H) 8.9 - 20.6 mg/dL 04/14/2021 10:[address] [facility] Creatinine 0.84 0.72 - 1.25 mg/dL 04/14/2021 10:[address] [facility] Alkaline Phosphatase 104 40 - 150 U/L 04/14/2021 10:[address] [facility] ALT 31 0 - 61 U/L 04/14/2021 10:[address] [facility] AST 24 5 - 34 U/L 04/14/2021 10:[address] [facility] Protein Total 7.6 6.4 - 8.3 gm/dL 04/14/2021 10:[address] [facility] Albumin 3.6 3.5 - 5.2 gm/dL 04/14/2021 10:[address] [facility] Bilirubin Total 0.2 0.2 - 1.2 mg/dL 04/14/2021 10:[address] [facility] eGFR by MDRD >60 >60 mL/min/1.7 3m2 04/14/2021 10:[address] [facility] eGFR by MDRD >60 >60 mL/min/1.7 3m2 04/14/2021 10:[address] [facility] Blood BLOOD SPECIMEN / Unknown Venipuncture / Unknown 04/14/2021 5:00 AM PASTING INSPECTOR 04/14/2021 9:39 AM [facility] Lamberto De La Cruz MD LAB - CHEMISTRY JOSE ENRIQUE VELA [facility] Organization Address City/State/ZIP Co de Phone Number [facility] [address] [place] [address] * VANCOMYCIN LEVEL TROUGH (04/14/2021 4:00 AM PASTING INSPECTOR) Vancomycin Trough 16.6 10.0 - 20.0 ug/mL 04/14/2021 11:53 AM PASTING INSPECTOR [facility] Blood BLOOD SPECIMEN / Unknown Venipuncture / Unknown 04/14/2021 4:00 AM PASTING INSPECTOR 04/14/2021 11:02 AM PASTING INSPECTOR Lamberto De La Cruz MD LAB - CHEMISTRY JOSE ENRIQUE VELA [facility] Organization Address City/State/ZIP Co de Phone Number [facility] [address] [place] [address] documented in this encounter Visit Diagnoses Not on filedocumented in this encounter Care Teams Stem Maker Relationship Specialty Start Date End Date Pepe Martel MD [address] [place] [address] [address] [place] [address] PCP - General 08/14/16 documented as of this encounter
--- OUTSIDE RECORDS SUMMARY | 2024-05-23 03:20 | XMS_ITS | Encounter Summary ---
Author Organization [facility] Address [address] [facility] [place] [address] Care Team Providers Care Sanitary Landfill Supervisor Name Role Phone Pepe Martel MD Primary Care Provider [phone] Encounter Details Date Type Department Care Team (Late st Contact Info) Description 07/14/2021 Lab Requisition [facility] [address] [place] [address] [place] [address] [place] [address] Social History Tobacco Use Types Packs/Day Years [...] Diagnosis Comments CBC W AUTO DIFFERENTIAL STAT 07/14/2021 5:19 AM AUTOMATIC GLUING MACHINE OPERATOR COMPREHENSIVE METABOLIC PANEL STAT 07/14/2021 5:19 AM AUTOMATIC GLUING MACHINE OPERATOR documented in this encounter Results * (ABNORMAL) CBC WITH DIFFERENTIAL (07/14/2021 5:19 AM AUTOMATIC GLUING MACHINE OPERATOR) WBC 9.1 4.4 - 10.7 x10E9/L 07/14/2021 1:59 PM AUTOMATIC GLUING MACHINE OPERATOR [facility] WBC Corrected 07/14/2021 1:59 PM AUTOMATIC GLUING MACHINE OPERATOR [facility] RBC 4.39 3.80 - 5.40 x10E12/L 07/14/2021 1:59 PM AUTOMATIC GLUING MACHINE OPERATOR [facility] Hemoglobin 11.4(L) 12.0 - 17.6 gm/dL 07/14/2021 1:59 PM AUTOMATIC GLUING MACHINE OPERATOR [facility] Hematocrit 36.6 35.2 - 51.7 % 07/14/2021 1:59 PM AUTOMATIC GLUING MACHINE OPERATOR [facility] MCV 83.4 80.7 - 98.3 fl 07/14/2021 1:59 PM AUTOMATIC GLUING MACHINE OPERATOR [facility] MCH 26.0(L) 26.7 - 34.0 pg 07/14/2021 1:59 PM AUTOMATIC GLUING MACHINE OPERATOR [facility] MCHC 31.1 30.8 - 35.9 gm/dL 07/14/2021 1:59 PM AUTOMATIC GLUING MACHINE OPERATOR [facility] Platelet Count 481(H) 153 - 416 x10E9/L 07/14/2021 1:59 PM AUTOMATIC GLUING MACHINE OPERATOR [facility] RDW-CV 13.4 12.1 - 14.9 % 07/14/2021 1:59 PM AUTOMATIC GLUING MACHINE OPERATOR [facility] MPV 9.7 9.4 - 12.9 fl 07/14/2021 1:59 PM AUTOMATIC GLUING MACHINE OPERATOR [facility] Neutrophils % 63.5 44.0 - 73.0 % 07/14/2021 1:59 PM AUTOMATIC GLUING MACHINE OPERATOR [facility] Lymphocytes % 23.0 20.0 - 43.0 % 07/14/2021 1:59 PM AUTOMATIC GLUING MACHINE OPERATOR [facility] Monocytes % 8.6 5.0 - 13.0 % 07/14/2021 1:59 PM [facility] Eosinophils % 4.2 0.0 - 6.0 % 07/14/2021 1:59 PM [facility] Basophils % 0.4 0.0 - 2.0 % 07/14/2021 1:59 PM [facility] Immature Granulocytes 0.3 0 - 1 % 07/14/2021 1:59 PM [facility] Neutrophil Absolute 5.79 2.01 - 7.14 x10E9/L 07/14/2021 1:59 PM [facility] Lymphocytes Absolute 2.10 1.07 - 3.94 x10E9/L 07/14/2021 1:59 PM [facility] Monocytes Absolute 0.78 0.26 - 1.07 x10E9/L 07/14/2021 1:59 PM [facility] Eosinophils Absolute 0.38 0 - 0.47 x10E9/L 07/14/2021 1:59 PM [facility] Basophils Absolute 0.04 0 - 0.08 x10E9/L 07/14/2021 1:59 PM [facility] Immature Granulocytes Absolute 0.03 0.00 - 0.06 x10E9/L 07/14/2021 1:59 PM [facility] nRBC Auto 0 /100 WBC 07/14/2021 1:59 PM [facility] Blood BLOOD SPECIMEN / Unknown Venipuncture / Unknown 07/14/2021 5:19 AM AUTOMATIC GLUING MACHINE OPERATOR 07/14/2021 12:[address] [facility] Vinicio Quintanilla MD LAB - HEMATOLOGY ORD ERABLES [facility] [address] [place] [address] * (ABNORMAL) COMPREHENSIVE METABOLIC PANEL (07/14/2021 5:[address] [facility]) [facility] Glucose 100 70 - 105 mg/dL 07/14/2021 1:24 PM [facility] Sodium 140 136 - 145 mmol/L 07/14/2021 1:24 PM [facility] Potassium 4.4 3.5 - 5.1 mmol/L 07/14/2021 1:24 PM [facility] Chloride 99 98 - 107 mmol/L 07/14/2021 1:24 PM [facility] CO2 26 23 - 31 mmol/L 07/14/2021 1:24 PM [facility] Calcium 10.0 8.4 - 10.4 mg/dL 07/14/2021 1:24 PM [facility] Anion Gap 15 8 - 18 mmol/L 07/14/2021 1:24 PM [facility] BUN 26(H) 8.9 - 20.6 mg/dL 07/14/2021 1:24 PM [facility] Creatinine 0.93 0.72 - 1.25 mg/dL 07/14/2021 1:24 PM [facility] eGFR by CKD-EPI >90 >=90 mL/min/1.7 3 m2 07/14/2021 1:24 PM [facility] Alkaline Phosphatase 139 40 - 150 U/L 07/14/2021 1:24 PM [facility] ALT 27 0 - 61 U/L 07/14/2021 1:24 PM [facility] AST 16 5 - 34 U/L 07/14/2021 1:24 PM [facility] Protein Total 7.6 6.4 - 8.3 gm/dL 07/14/2021 1:24 PM [facility] Albumin 3.8 3.5 - 5.2 gm/dL 07/14/2021 1:24 PM [facility] Bilirubin Total 0.3 0.2 - 1.2 mg/dL 07/14/2021 1:24 PM [facility] Blood BLOOD SPECIMEN / Unknown Venipuncture / Unknown 07/14/2021 5:19 AM AUTOMATIC GLUING MACHINE OPERATOR 07/14/2021 12:29 PM [facility] - 07/14/2021 1:[address] [facility] eGFR result was calculated using the updated CKD-EPI Creatinine Equations (2020). Prior to go live 2021 the eGFR was calculated using the MDRD calculation. Please note Reference Range change. Vinicio Quintanilla MD LAB - CHEMISTRY JOSE ENRIQUE VELA [facility] Organization Address City/State/ZIP Co de Phone Number [facility] [address] [place] [address] documented in this encounter Visit Diagnoses Not on filedocumented in this encounter Care Teams Sanitary Landfill Supervisor Relationship Specialty Start Date End Date Pepe Martel MD [address] [place] [id number] PCP - General 08/14/16 documented as of this encounter
--- OUTSIDE RECORDS SUMMARY | 2024-05-23 03:20 | XMS_ITS | Encounter Summary ---
Author Organization [facility] Address [address] [place] [address] Care Team Providers Care Financial Underwriter Name Role Phone Pepe Martel MD Primary Care Provider [phone] Encounter Details Date Type Department Care Team (Late st Contact Info) Description 04/28/2021 Lab Requisition [facility] [address] [place] [address] Davon Laws MD [address] [place] [address] Social History Tobacco Use Types [...] Diagnosis Comments CBC W AUTO DIFFERENTIAL STAT 04/28/2021 3:36 AM MINI LAB OPERATOR COMPREHENSIVE METABOLIC PANEL STAT 04/28/2021 3:36 AM MINI LAB OPERATOR VANCOMYCIN LEVEL TROUGH STAT 04/28/2021 3:36 AM MINI LAB OPERATOR documented in this encounter Results * (ABNORMAL) COMPREHENSIVE METABOLIC PANEL (04/28/2021 3:36 AM MINI LAB OPERATOR) Glucose 93 70 - 105 mg/dL 04/28/2021 11:17 AM MINI LAB OPERATOR [facility] Sodium 138 136 - 145 mmol/L 04/28/2021 11:17 AM MINI LAB OPERATOR [facility] Potassium 4.9 3.5 - 5.1 mmol/L 04/28/2021 11:17 AM MINI LAB OPERATOR [facility] Chloride 104 98 - 107 mmol/L 04/28/2021 11:17 AM MINI LAB OPERATOR [facility] CO2 21(L) 23 - 31 mmol/L 04/28/2021 11:17 AM [facility] Calcium 9.5 8.4 - 10.4 mg/dL 04/28/2021 11:17 AM MINI LAB OPERATOR [facility] Anion Gap 13 8 - 18 mmol/L 04/28/2021 11:17 AM [facility] BUN 33(H) 8.9 - 20.6 mg/dL 04/28/2021 11:17 AM [facility] Creatinine 0.96 0.72 - 1.25 mg/dL 04/28/2021 11:17 AM MINI LAB OPERATOR [facility] Alkaline Phosphatase 73 40 - 150 U/L 04/28/2021 11:17 AM MINI LAB OPERATOR [facility] ALT 21 0 - 61 U/L 04/28/2021 11:17 AM MINI LAB OPERATOR [facility] AST 20 5 - 34 U/L 04/28/2021 11:17 AM [facility] Protein Total 7.4 6.4 - 8.3 gm/dL 04/28/2021 11:17 AM [facility] Albumin 3.6 3.5 - 5.2 gm/dL 04/28/2021 11:17 AM [facility] Bilirubin Total 0.3 0.2 - 1.2 mg/dL 04/28/2021 11:17 AM [facility] eGFR by MDRD >60 >60 mL/min/1.7 3m2 04/28/2021 11:17 AM [facility] eGFR by MDRD >60 >60 mL/min/1.7 3m2 04/28/2021 11:17 AM [facility] Blood BLOOD SPECIMEN / Unknown Venipuncture / Unknown 04/28/2021 3:36 AM MINI LAB OPERATOR 04/28/2021 10:25 AM MINI LAB OPERATOR Davon Laws MD [facility] Organization Address City/State/ZIP Co de Phone Number [facility] [address] [place] [phone] * (ABNORMAL) CBC WITH DIFFERENTIAL (04/28/2021 3:36 AM [facility]) WBC 8.1 4.4 - 10.7 x10E9/L 04/28/2021 10:34 AM [facility] WBC Corrected 04/28/2021 10:34 AM [facility] RBC 3.89 3.80 - 5.40 x10E12/L 04/28/2021 10:34 AM [facility] Hemoglobin 10.8(L) 12.0 - 17.6 gm/dL 04/28/2021 10:34 AM [facility] Hematocrit 34.8(L) 35.2 - 51.7 % 04/28/2021 10:34 AM [facility] MCV 89.5 80.7 - 98.3 fl 04/28/2021 10:34 AM [facility] MCH 27.8 26.7 - 34.0 pg 04/28/2021 10:34 AM [facility] MCHC 31.0 30.8 - 35.9 gm/dL 04/28/2021 10:34 AM [facility] Platelet Count 407 153 - 416 x10E9/L 04/28/2021 10:34 AM [facility] RDW-CV 13.8 12.1 - 14.9 % 04/28/2021 10:34 AM [facility] MPV 10.5 9.4 - 12.9 fl 04/28/2021 10:34 AM [facility] Neutrophils % 66.1 44.0 - 73.0 % 04/28/2021 10:34 AM [facility] Lymphocytes % 14.5(L) 20.0 - 43.0 % 04/28/2021 10:34 AM [facility] Monocytes % 13.6(H) 5.0 - 13.0 % 04/28/2021 10:34 AM [facility] Eosinophils % 5.0 0.0 - 6.0 % 04/28/2021 10:34 AM [facility] Basophils % 0.6 0.0 - 2.0 % 04/28/2021 10:34 AM [facility] Immature Granulocytes 0.2 0 - 1 % 04/28/2021 10:34 AM [facility] Neutrophil Absolute 5.34 2.01 - 7.14 x10E9/L 04/28/2021 10:34 AM [facility] Lymphocytes Absolute 1.17 1.07 - 3.94 x10E9/L 04/28/2021 10:34 AM [facility] Monocytes Absolute 1.10(H) 0.26 - 1.07 x10E9/L 04/28/2021 10:34 AM [facility] Eosinophils Absolute 0.40 0 - 0.47 x10E9/L 04/28/2021 10:34 AM [facility] Basophils Absolute 0.05 0 - 0.08 x10E9/L 04/28/2021 10:34 AM [facility] Immature Granulocytes Absolute 0.02 0.00 - 0.06 x10E9/L 04/28/2021 10:34 AM [facility] nRBC Auto 0 /100 WBC 04/28/2021 10:34 AM [facility] Blood BLOOD SPECIMEN / Unknown Venipuncture / Unknown 04/28/2021 3:36 AM MINI LAB OPERATOR 04/28/2021 10:25 AM [facility] Davon Laws MD LAB - HEMATOLOGY ORD ERABLES [facility] [address] [place] [address] * (ABNORMAL) VANCOMYCIN LEVEL TROUGH (04/28/2021 3:36 AM MINI LAB OPERATOR) Vancomycin Trough 20.3(H) 10.0 - 20.0 ug/mL 04/28/2021 10:54 AM MINI LAB OPERATOR [facility] Blood BLOOD SPECIMEN / Unknown Venipuncture / Unknown 04/28/2021 3:36 AM MINI LAB OPERATOR 04/28/2021 10:22 AM MINI LAB OPERATOR Davon Laws MD LAB - CHEMISTRY OR[place] VELA [facility] [address] [place] [address] documented in this encounter Visit Diagnoses Not on filedocumented in this encounter Care Teams Financial Underwriter Relationship Specialty Start Date End Date Pepe Martel MD [address] [place] [id number] PCP - General 08/14/16 documented as of this encounter
--- OUTSIDE RECORDS SUMMARY | 2024-05-23 03:20 | XMS_ITS | Encounter Summary ---
Author Organization [facility] Address [address] [place] [address] Care Team Providers Care Labor Commissioner Name Role Phone Pepe Martel MD Primary Care Provider [phone] Encounter Details Date Type Department Care Team (Late st Contact Info) Description 05/16/2021 Lab Requisition [facility] [address] [place] [address] Davon Laws MD [address] [place] [address] Social History Tobacco Use Types [...] Procedure Name Priority Date/Time Associated Diagnosis Comments URINE MICROSCOPIC ONLY REFLEX TO CULTURE Routine 05/16/2021 5:30 AM COMMISSIONING EDITOR URINALYSIS REFLEX MICROSCOPIC REFLEX CULTURE STAT 05/16/2021 5:30 AM COMMISSIONING EDITOR CULTURE URINE Routine 05/16/2021 5:30 AM COMMISSIONING EDITOR CBC W AUTO DIFFERENTIAL STAT 05/16/2021 5:30 AM COMMISSIONING EDITOR documented in this encounter Results * CULTURE URINE (05/16/2021 5:30 AM COMMISSIONING EDITOR) Culture Urine No growth (<100 CFU/mL) CALISTA 05/17/2021 2:15 PM COMMISSIONING EDITOR [facility] MICROBIOLOGY Urine URINE SPECIMEN OBTAINED BY CLEAN CATCH PROCEDURE / Unknown Collection / Unknown 05/16/2021 5:30 AM COMMISSIONING EDITOR 05/16/2021 8:37 AM COMMISSIONING EDITOR Davon Laws MD LAB - MICROBIOLOGY O RDERABLES [facility] MICROBIOLOG[facility] [address] [place], [place] [address], [facility] [phone] * (ABNORMAL) URINE MICROSCOPIC ONLY REFLEX TO CULTURE (05/16/2021 5:30 AM COMMISSIONING EDITOR) Reflex Status Culture to follow 05/16/2021 8:53 AM COMMISSIONING EDITOR [facility] RBC UA 6-10(A) None Seen, 0-2, 3-5 # /hpf 05/16/2021 8:53 AM COMMISSIONING EDITOR [facility] WBC UA 6-10(A) None Seen, 0-5 # /hpf 05/16/2021 8:53 AM COMMISSIONING EDITOR [facility] Bacteria UA None Seen None Seen 05/16/2021 8:53 AM COMMISSIONING EDITOR [facility] Squamous Epithelial Cells 3-5 None Seen, 0-2, 3-5 /hpf 05/16/2021 8:53 AM COMMISSIONING EDITOR [facility] Calcium Oxalate Crystals Occasional( A) None seen /HPF 05/16/2021 8:[address] [facility] Urine URINE SPECIMEN OBTAINED BY CLEAN CATCH PROCEDURE / Unknown Collection / Unknown 05/16/2021 5:30 AM COMMISSIONING EDITOR 05/16/2021 8:37 AM [facility] - 05/16/2021 8:53 AM COMMISSIONING EDITOR Davon Laws MD LAB - URINALYSIS ORD ERABLES [facility] [address] [place] [address] * (ABNORMAL) CBC WITH DIFFERENTIAL (05/16/2021 5:30 AM COMMISSIONING EDITOR) WBC 7.2 4.4 - 10.7 x10E9/L 05/16/2021 8:[address] [facility] WBC Corrected 05/16/2021 8:[address] [facility] RBC 4.09 3.80 - 5.40 x10E12/L 05/16/2021 8:[address] [facility] Hemoglobin 11.2(L) 12.0 - 17.6 gm/dL 05/16/2021 8:[address] [facility] Hematocrit 35.9 35.2 - 51.7 % 05/16/2021 8:[address] [facility] MCV 87.8 80.7 - 98.3 fl 05/16/2021 8:[address] [facility] MCH 27.4 26.7 - 34.0 pg 05/16/2021 8:[address] [facility] MCHC 31.2 30.8 - 35.9 gm/dL 05/16/2021 8:[address] [facility] Platelet Count 384 153 - 416 x10E9/L 05/16/2021 8:[address] [facility] RDW-CV 12.3 12.1 - 14.9 % 05/16/2021 8:[address] [facility] MPV 10.0 9.4 - 12.9 fl 05/16/2021 8:[address] [facility] Neutrophils % 67.2 44.0 - 73.0 % 05/16/2021 8:[address] [facility] Lymphocytes % 17.2(L) 20.0 - 43.0 % 05/16/2021 8:[address] [facility] Monocytes % 11.2 5.0 - 13.0 % 05/16/2021 8:[address] [facility] Eosinophils % 4.0 0.0 - 6.0 % 05/16/2021 8:[address] [facility] Basophils % 0.3 0.0 - 2.0 % 05/16/2021 8:[address] [facility] Immature Granulocytes 0.1 0 - 1 % 05/16/2021 8:[address] [facility] Neutrophil Absolute 4.84 2.01 - 7.14 x10E9/L 05/16/2021 8:[address] [facility] Lymphocytes Absolute 1.24 1.07 - 3.94 x10E9/L 05/16/2021 8:[address] [facility] Monocytes Absolute 0.81 0.26 - 1.07 x10E9/L 05/16/2021 8:[address] [facility] Eosinophils Absolute 0.29 0 - 0.47 x10E9/L 05/16/2021 8:[address] [facility] Basophils Absolute 0.02 0 - 0.08 x10E9/L 05/16/2021 8:[address] [facility] Immature Granulocytes Absolute 0.01 0.00 - 0.06 x10E9/L 05/16/2021 8:[address] [facility] nRBC Auto 0 /100 WBC 05/16/2021 8:[address] [facility] Blood BLOOD SPECIMEN / Unknown Venipuncture / Unknown 05/16/2021 5:30 AM COMMISSIONING EDITOR 05/16/2021 8:37 AM [facility] Davon Laws MD LAB - HEMATOLOGY ORD ERABLES [facility] [address] [place] [address] * (ABNORMAL) URINALYSIS REFLEX MICROSCOPIC REFLEX CULTURE (05/16/2021 5:30 AM COMMISSIONING EDITOR) Color UA Yellow Straw, Yellow 05/16/2021 8:51 AM COMMISSIONING EDITOR [facility] Clarity UA Slt Cloudy(A) Clear 05/16/2021 8:51 AM COMMISSIONING EDITOR [facility] Glucose UA Negative Negative 05/16/2021 8:51 AM COMMISSIONING EDITOR [facility] Bilirubin UA Negative Negative 05/16/2021 8:51 AM COMMISSIONING EDITOR [facility] Ketone UA Negative Negative 05/16/2021 8:51 AM COMMISSIONING EDITOR [facility] Specific [place] UA 1.024 1.005 - 1.030 05/16/2021 8:51 AM COMMISSIONING EDITOR [facility] Blood UA Negative Negative 05/16/2021 8:51 AM COMMISSIONING EDITOR [facility] pH UA 6.0 5.0 - 8.0 pH 05/16/2021 8:51 AM COMMISSIONING EDITOR [facility] Protein UA Negative Negative 05/16/2021 8:51 AM COMMISSIONING EDITOR [facility] Urobilinogen UA Negative Negative mg/dL 05/16/2021 8:51 AM COMMISSIONING EDITOR [facility] Nitrite UA Negative Negative 05/16/2021 8:51 AM COMMISSIONING EDITOR [facility] Leukocyte UA Trace(A) Negative 05/16/2021 8:51 AM COMMISSIONING EDITOR [facility] Urine Microscopy Urine microscopy to follow 05/16/2021 8:51 AM COMMISSIONING EDITOR [facility] Reflex Status Culture to follow 05/16/2021 8:51 AM COMMISSIONING EDITOR [facility] Urine URINE SPECIMEN OBTAINED BY CLEAN CATCH PROCEDURE / Unknown Collection / Unknown 05/16/2021 5:30 AM COMMISSIONING EDITOR 05/16/2021 8:37 AM COMMISSIONING EDITOR Narrative [facility] - 05/16/2021 8:51 AM COMMISSIONING EDITOR Ascorbic Acid can cause false negative urine strip tests for blood, glucose, nitrite, and bilirubin. Davon Laws MD LAB - URINALYSIS ORD ERABLES [facility] [address] [place] [address] documented in this encounter Visit Diagnoses Not on filedocumented in this encounter Care Teams Labor Commissioner Relationship Specialty Start Date End Date Pepe Martel MD [address] [place] [address] PCP - General 08/14/16 documented as of this encounter
--- OUTSIDE RECORDS SUMMARY | 2024-05-23 03:20 | XMS_ITS | Encounter Summary ---
Author Organization [facility] Address [address] [facility] [place] [address] Care Team Providers Care Customer Supply Coordinator Name Role Phone Pepe Martel MD Primary Care Provider [phone] Encounter Details Date Type Department Care Team (Late st Contact Info) Description 04/18/2021 Lab Requisition [facility] [address] [place] [address] Davon Laws MD [address] [place] [address] Social History Tobacco Use Types [...] Associated Diagnosis Comments VANCOMYCIN LEVEL TROUGH STAT 04/18/2021 4:03 AM SPINE SPECIALIST documented in this encounter Results * VANCOMYCIN LEVEL TROUGH (04/18/2021 4:03 AM SPINE SPECIALIST) Vancomycin Trough 16.2 10.0 - 20.0 ug/mL 04/18/2021 9:58 AM SPINE SPECIALIST [facility] Blood BLOOD SPECIMEN / Unknown Venipuncture / Unknown 04/18/2021 4:03 AM SPINE SPECIALIST 04/18/2021 8:39 AM SPINE SPECIALIST Davon Laws MD LAB - CHEMISTRY JOSE ENRIQUE VELA [facility] Organization Address City/State/[facility] Co de Phone Number [facility] [address] [place] [address] documented in this encounter Visit Diagnoses Not on filedocumented in this encounter Care Teams Customer Supply Coordinator Relationship Specialty Start Date End Date Pepe Martel MD [address] [place] [id number] PCP - General 08/14/16 documented as of this encounter
--- OUTSIDE RECORDS SUMMARY | 2024-05-23 03:20 | XMS_ITS | Encounter Summary ---
Author Organization [facility] Address [address] [facility] [place] [address] Care Team Providers Care Pictures Editor Name Role Phone Pepe Martel MD Primary Care Provider Encounter Details Date Type Department Care Team (Late st Contact Info) Description 05/15/2021 Lab Requisition [facility] [address] [place] [address] Lamberto De La Cruz MD [address] [facility] [address] [place] [address] Social History Tobacco Use Types [...] Diagnosis Comments CBC W AUTO DIFFERENTIAL STAT 05/15/2021 3:11 AM BAG LOADER MACHINE OPERATOR COMPREHENSIVE METABOLIC PANEL STAT 05/15/2021 3:11 AM BAG LOADER MACHINE OPERATOR documented in this encounter Results * (ABNORMAL) CBC WITH DIFFERENTIAL (05/15/2021 3:11 AM BAG LOADER MACHINE OPERATOR) WBC 9.7 4.4 - 10.7 x10E9/L 05/15/2021 9:38 AM BAG LOADER MACHINE OPERATOR [facility] WBC Corrected 05/15/2021 9:38 AM BAG LOADER MACHINE OPERATOR [facility] RBC 4.26 3.80 - 5.40 x10E12/L 05/15/2021 9:38 AM BAG LOADER MACHINE OPERATOR [facility] Hemoglobin 11.8(L) 12.0 - 17.6 gm/dL 05/15/2021 9:38 AM BAG LOADER MACHINE OPERATOR [facility] Hematocrit 38.7 35.2 - 51.7 % 05/15/2021 9:38 AM BAG LOADER MACHINE OPERATOR [facility] MCV 90.8 80.7 - 98.3 fl 05/15/2021 9:38 AM BAG LOADER MACHINE OPERATOR [facility] MCH 27.7 26.7 - 34.0 pg 05/15/2021 9:38 AM BAG LOADER MACHINE OPERATOR [facility] MCHC 30.5(L) 30.8 - 35.9 gm/dL 05/15/2021 9:38 AM BAG LOADER MACHINE OPERATOR [facility] Platelet Count 403 153 - 416 x10E9/L 05/15/2021 9:38 AM BAG LOADER MACHINE OPERATOR [facility] RDW-CV 12.4 12.1 - 14.9 % 05/15/2021 9:38 AM BAG LOADER MACHINE OPERATOR [facility] MPV 10.5 9.4 - 12.9 fl 05/15/2021 9:38 AM BAG LOADER MACHINE OPERATOR [facility] Neutrophils % 65.0 44.0 - 73.0 % 05/15/2021 9:38 AM BAG LOADER MACHINE OPERATOR [facility] Lymphocytes % 19.5(L) 20.0 - 43.0 % 05/15/2021 9:38 AM BAG LOADER MACHINE OPERATOR [facility] Monocytes % 11.6 5.0 - 13.0 % 05/15/2021 9:38 AM [facility] Eosinophils % 3.2 0.0 - 6.0 % 05/15/2021 9:38 AM [facility] Basophils % 0.5 0.0 - 2.0 % 05/15/2021 9:38 AM [facility] Immature Granulocytes 0.2 0 - 1 % 05/15/2021 9:38 AM [facility] Neutrophil Absolute 6.31 2.01 - 7.14 x10E9/L 05/15/2021 9:38 AM [facility] Lymphocytes Absolute 1.89 1.07 - 3.94 x10E9/L 05/15/2021 9:38 AM [facility] Monocytes Absolute 1.13(H) 0.26 - 1.07 x10E9/L 05/15/2021 9:38 AM [facility] Eosinophils Absolute 0.31 0 - 0.47 x10E9/L 05/15/2021 9:38 AM [facility] Basophils Absolute 0.05 0 - 0.08 x10E9/L 05/15/2021 9:38 AM [facility] Immature Granulocytes Absolute 0.02 0.00 - 0.06 x10E9/L 05/15/2021 9:38 AM [facility] nRBC Auto 0 /100 WBC 05/15/2021 9:38 AM [facility] Blood BLOOD SPECIMEN / Unknown Venipuncture / Unknown 05/15/2021 3:11 AM BAG LOADER MACHINE OPERATOR 05/15/2021 8:27 AM [facility] Lamberto De La Cruz MD LAB - HEMATOLOGY ORD ERABLES [facility] [address] [place] [address] * (ABNORMAL) COMPREHENSIVE METABOLIC PANEL (05/15/2021 3:11 AM [facility]) [facility] Glucose 114(H) 70 - 105 mg/dL 05/15/2021 9:33 AM [facility] Sodium 142 136 - 145 mmol/L 05/15/2021 9:33 AM [facility] Potassium 4.9 3.5 - 5.1 mmol/L 05/15/2021 9:33 AM [facility] Chloride 102 98 - 107 mmol/L 05/15/2021 9:33 AM [facility] CO2 27 23 - 31 mmol/L 05/15/2021 9:33 AM [facility] Calcium 10.0 8.4 - 10.4 mg/dL 05/15/2021 9:33 AM [facility] Anion Gap 13 8 - 18 mmol/L 05/15/2021 9:33 AM [facility] BUN 35(H) 8.9 - 20.6 mg/dL 05/15/2021 9:33 AM [facility] Creatinine 1.18 0.72 - 1.25 mg/dL 05/15/2021 9:33 AM [facility] Alkaline Phosphatase 118 40 - 150 U/L 05/15/2021 9:33 AM [facility] ALT 42 0 - 61 U/L 05/15/2021 9:33 AM [facility] AST 22 5 - 34 U/L 05/15/2021 9:33 AM [facility] Protein Total 8.2 6.4 - 8.3 gm/dL 05/15/2021 9:33 AM [facility] Albumin 4.2 3.5 - 5.2 gm/dL 05/15/2021 9:33 AM [facility] Bilirubin Total 0.2 0.2 - 1.2 mg/dL 05/15/2021 9:33 AM [facility] eGFR by MDRD >60 >60 mL/min/1.7 3m2 05/15/2021 9:33 AM [facility] eGFR by MDRD >60 >60 mL/min/1.7 3m2 05/15/2021 9:33 AM [facility] Blood BLOOD SPECIMEN / Unknown Venipuncture / Unknown 05/15/2021 3:11 AM BAG LOADER MACHINE OPERATOR 05/15/2021 8:27 AM [facility] Lamberto De La Cruz MD LAB - CHEMISTRY JOSE ENRIQUE VELA [facility] Organization Address City/State/ZIP Co de Phone Number [facility] [address] [place] [address] documented in this encounter Visit Diagnoses Not on filedocumented in this encounter Care Teams Pictures Editor Relationship Specialty Start Date End Date Pepe Martel MD [address] [place] [id number] PCP - General 08/14/16 documented as of this encounter
--- OUTSIDE RECORDS SUMMARY | 2024-05-23 03:20 | XMS_ITS | Encounter Summary ---
Author Organization [facility] Address [address] [facility] [place] [address] Care Team Providers Care Home Health Clinical Liaison Name Role Phone Pepe Martel MD Primary Care Provider [phone] Encounter Details Date Type Department Care Team (Late st Contact Info) Description 05/12/2021 Lab Requisition [facility] [address] [place] [address] Lamberto De La Cruz MD [address] [facility] [address] [place] [address] Social History Tobacco Use Types [...] Diagnosis Comments CBC W AUTO DIFFERENTIAL STAT 05/12/2021 4:00 AM [facility] [employer] [facility] COMPREHENSIVE METABOLIC PANEL STAT 05/12/2021 4:00 AM [facility] documented in this encounter Results * (ABNORMAL) CBC WITH DIFFERENTIAL (05/12/2021 4:00 AM [facility]) WBC 7.6 4.4 - 10.7 x10E9/L 05/12/2021 10:20 AM [facility] WBC Corrected 05/12/2021 10:20 AM [facility] RBC 4.26 3.80 - 5.40 x10E12/L 05/12/2021 10:20 AM [facility] Hemoglobin 11.7(L) 12.0 - 17.6 gm/dL 05/12/2021 10:20 AM [facility] Hematocrit 37.9 35.2 - 51.7 % 05/12/2021 10:20 AM [facility] MCV 89.0 80.7 - 98.3 fl 05/12/2021 10:20 AM [facility] MCH 27.5 26.7 - 34.0 pg 05/12/2021 10:20 AM [facility] MCHC 30.9 30.8 - 35.9 gm/dL 05/12/2021 10:20 AM [facility] Platelet Count 438(H) 153 - 416 x10E9/L 05/12/2021 10:20 AM [facility] RDW-CV 12.7 12.1 - 14.9 % 05/12/2021 10:20 AM [facility] MPV 10.0 9.4 - 12.9 fl 05/12/2021 10:20 AM [facility] Neutrophils % 58.1 44.0 - 73.0 % 05/12/2021 10:20 AM [facility] Lymphocytes % 25.1 20.0 - 43.0 % 05/12/2021 10:20 AM [facility] Monocytes % 11.9 5.0 - 13.0 % 05/12/2021 10:20 AM [facility] Eosinophils % 3.9 0.0 - 6.0 % 05/12/2021 10:20 AM [facility] Basophils % 0.7 0.0 - 2.0 % 05/12/2021 10:20 AM [facility] Immature Granulocytes 0.3 0 - 1 % 05/12/2021 10:20 AM [facility] Neutrophil Absolute 4.43 2.01 - 7.14 x10E9/L 05/12/2021 10:20 AM [facility] Lymphocytes Absolute 1.91 1.07 - 3.94 x10E9/L 05/12/2021 10:20 AM [facility] Monocytes Absolute 0.91 0.26 - 1.07 x10E9/L 05/12/2021 10:20 AM [facility] Eosinophils Absolute 0.30 0 - 0.47 x10E9/L 05/12/2021 10:20 AM [facility] Basophils Absolute 0.05 0 - 0.08 x10E9/L 05/12/2021 10:20 AM [facility] Immature Granulocytes Absolute 0.02 0.00 - 0.06 x10E9/L 05/12/2021 10:20 AM [facility] nRBC Auto 0 /100 WBC 05/12/2021 10:20 AM [facility] Blood BLOOD SPECIMEN / Unknown Venipuncture / Unknown 05/12/2021 4:00 AM [facility] 05/12/2021 9:49 AM [facility] Lamberto De La Cruz MD LAB - HEMATOLOGY ORD ERABLES [facility] [address] [place] [address] * (ABNORMAL) COMPREHENSIVE METABOLIC PANEL (05/12/2021 4:00 AM [facility]) [facility] [address] Glucose 105 70 - 105 mg/dL 05/12/2021 10:54 AM [facility] Sodium 140 136 - 145 mmol/L 05/12/2021 10:54 AM [facility] Potassium 5.1 3.5 - 5.1 mmol/L 05/12/2021 10:54 AM [facility] Chloride 102 98 - 107 mmol/L 05/12/2021 10:54 AM [facility] CO2 20(L) 23 - 31 mmol/L 05/12/2021 10:54 AM [facility] Calcium 9.9 8.4 - 10.4 mg/dL 05/12/2021 10:54 AM [facility] Anion Gap 18 8 - 18 mmol/L 05/12/2021 10:54 AM [facility] BUN 34(H) 8.9 - 20.6 mg/dL 05/12/2021 10:54 AM [facility] Creatinine 1.01 0.72 - 1.25 mg/dL 05/12/2021 10:54 AM [facility] Alkaline Phosphatase 109 40 - 150 U/L 05/12/2021 10:54 AM [facility] ALT 40 0 - 61 U/L 05/12/2021 10:54 AM [facility] AST 29 5 - 34 U/L 05/12/2021 10:54 AM [facility] Protein Total 7.8 6.4 - 8.3 gm/dL 05/12/2021 10:54 AM [facility] Albumin 3.8 3.5 - 5.2 gm/dL 05/12/2021 10:54 AM [facility] Bilirubin Total 0.3 0.2 - 1.2 mg/dL 05/12/2021 10:54 AM [facility] eGFR by MDRD >60 >60 mL/min/1.7 3m2 05/12/2021 10:54 AM [facility] eGFR by MDRD >60 >60 mL/min/1.7 3m2 05/12/2021 10:54 AM [facility] Blood BLOOD SPECIMEN / Unknown Venipuncture / Unknown 05/12/2021 4:00 AM [facility] 05/12/2021 9:49 AM [facility] Lamberto De La Cruz MD LAB - CHEMISTRY JOSE ENRIQUE VELA [facility] Organization Address City/State/ZIP Co de Phone Number [facility] [address] [place], [place] [id number] documented in this encounter Visit Diagnoses Not on filedocumented in this encounter Care Teams Home Health Clinical Liaison Relationship Specialty Start Date End Date Pepe Martel MD [address] [facility] [address] [place] [address] PCP - General 08/14/16 documented as of this encounter
--- OUTSIDE RECORDS SUMMARY | 2024-05-23 03:20 | XMS_ITS | Encounter Summary ---
Author Organization [facility] Address [address] [place] [address] Care Team Providers Care V Belt Skiver Name Role Phone Pepe Martel MD Primary Care Provider [phone] Encounter Details Date Type Department Care Team (Late st Contact Info) Description 04/17/2021 Lab Requisition [facility] [address] [place] [address] Lamberto De La Cruz MD [address] [facility] [address] [place] [address] Social History Tobacco Use Types [...] Diagnosis Comments CBC W AUTO DIFFERENTIAL STAT 04/17/2021 5:00 AM [facility] COMPREHENSIVE METABOLIC PANEL STAT 04/17/2021 5:00 AM [facility] documented in this encounter Results * (ABNORMAL) CBC WITH DIFFERENTIAL (04/17/2021 5:00 AM [facility]) WBC 9.1 4.4 - 10.7 x10E9/L 04/17/2021 9:45 AM [facility] WBC Corrected 04/17/2021 9:45 AM [facility] RBC 3.88 3.80 - 5.40 x10E12/L 04/17/2021 9:45 AM [facility] Hemoglobin 11.0(L) 12.0 - 17.6 gm/dL 04/17/2021 9:45 AM [facility] Hematocrit 34.8(L) 35.2 - 51.7 % 04/17/2021 9:45 AM [facility] MCV 89.7 80.7 - 98.3 fl 04/17/2021 9:45 AM [facility] MCH 28.4 26.7 - 34.0 pg 04/17/2021 9:45 AM [facility] MCHC 31.6 30.8 - 35.9 gm/dL 04/17/2021 9:45 AM [facility] Platelet Count 314 153 - 416 x10E9/L 04/17/2021 9:45 AM [facility] RDW-CV 14.4 12.1 - 14.9 % 04/17/2021 9:45 AM [facility] MPV 9.9 9.4 - 12.9 fl 04/17/2021 9:45 AM [facility] Neutrophils % 66.0 44.0 - 73.0 % 04/17/2021 9:45 AM [facility] Lymphocytes % 16.5(L) 20.0 - 43.0 % 04/17/2021 9:45 AM [facility] Monocytes % 13.5(H) 5.0 - 13.0 % 04/17/2021 9:[address] [facility] Eosinophils % 3.1 0.0 - 6.0 % 04/17/2021 9:[address] [facility] Basophils % 0.7 0.0 - 2.0 % 04/17/2021 9:[address] [facility] Immature Granulocytes 0.2 0 - 1 % 04/17/2021 9:[address] [facility] Neutrophil Absolute 6.01 2.01 - 7.14 x10E9/L 04/17/2021 9:[address] [facility] Lymphocytes Absolute 1.50 1.07 - 3.94 x10E9/L 04/17/2021 9:[address] [facility] Monocytes Absolute 1.23(H) 0.26 - 1.07 x10E9/L 04/17/2021 9:[address] [facility] Eosinophils Absolute 0.28 0 - 0.47 x10E9/L 04/17/2021 9:[address] [facility] Basophils Absolute 0.06 0 - 0.08 x10E9/L 04/17/2021 9:[address] [facility] Immature Granulocytes Absolute 0.02 0.00 - 0.06 x10E9/L 04/17/2021 9:[address] [facility] nRBC Auto 0 /100 WBC 04/17/2021 9:[address] [facility] Blood BLOOD SPECIMEN / Unknown Venipuncture / Unknown 04/17/2021 5:00 AM [facility] 04/17/2021 9:29 AM [facility] Lamberto De La Cruz MD LAB - HEMATOLOGY ORD ERABLES [facility] [address] [place] [address] * (ABNORMAL) COMPREHENSIVE METABOLIC PANEL (04/17/2021 5:00 AM [facility]) [facility] Glucose 98 70 - 105 mg/dL 04/17/2021 10:[address] [facility] Sodium 138 136 - 145 mmol/L 04/17/2021 10:[address] [facility] Potassium 4.4 3.5 - 5.1 mmol/L 04/17/2021 10:[address] [facility] Chloride 102 98 - 107 mmol/L 04/17/2021 10:[address] [facility] CO2 23 23 - 31 mmol/L 04/17/2021 10:[address] [facility] Calcium 9.5 8.4 - 10.4 mg/dL 04/17/2021 10:[address] [facility] Anion Gap 13 8 - 18 mmol/L 04/17/2021 10:[address] [facility] BUN 25(H) 8.9 - 20.6 mg/dL 04/17/2021 10:[address] [facility] Creatinine 0.88 0.72 - 1.25 mg/dL 04/17/2021 10:[address] [facility] Alkaline Phosphatase 94 40 - 150 U/L 04/17/2021 10:[address] [facility] ALT 27 0 - 61 U/L 04/17/2021 10:[address] [facility] AST 22 5 - 34 U/L 04/17/2021 10:[address] [facility] Protein Total 7.6 6.4 - 8.3 gm/dL 04/17/2021 10:[address] [facility] Albumin 3.6 3.5 - 5.2 gm/dL 04/17/2021 10:[address] [facility] Bilirubin Total 0.2 0.2 - 1.2 mg/dL 04/17/2021 10:[address] [facility] eGFR by MDRD >60 >60 mL/min/1.7 3m2 04/17/2021 10:[address] [facility] eGFR by MDRD >60 >60 mL/min/1.7 3m2 04/17/2021 10:[address] [facility] Blood BLOOD SPECIMEN / Unknown Venipuncture / Unknown 04/17/2021 5:00 AM [facility] 04/17/2021 9:29 AM [facility] Lamberto De La Cruz MD LAB - CHEMISTRY JOSE ENRIQUE VELA [facility] Organization Address City/State/ZIP Co de Phone Number [facility] [address] [place] [address] documented in this encounter Visit Diagnoses Not on filedocumented in this encounter Care Teams V Belt Skiver Relationship Specialty Start Date End Date Pepe Martel MD [address] [place] [id number] PCP - General 08/14/16 documented as of this encounter
--- OUTSIDE RECORDS SUMMARY | 2024-05-23 03:20 | XMS_ITS | Encounter Summary ---
Author Organization [facility] Address [address] [place] [address] Care Team Providers Care Crane Hoist Or Lift Operator Name Role Phone Pepe Martel MD Primary Care Provider [phone] Encounter Details Date Type Department Care Team (Late st Contact Info) Description 07/24/2021 Lab Requisition [facility] [address] [place] [address] [place] [address] [place] [address] Social History Tobacco Use Types Packs/Day Years [...] Diagnosis Comments CBC W AUTO DIFFERENTIAL STAT 07/24/2021 3:45 AM [facility] COMPREHENSIVE METABOLIC PANEL STAT 07/24/2021 3:45 AM [facility] documented in this encounter Results * (ABNORMAL) CBC WITH DIFFERENTIAL (07/24/2021 3:45 AM [facility]) WBC 9.2 4.4 - 10.7 x10E9/L 07/24/2021 10:02 AM [facility] WBC Corrected 07/24/2021 10:02 AM [facility] RBC 4.42 3.80 - 5.40 x10E12/L 07/24/2021 10:02 AM [facility] Hemoglobin 11.4(L) 12.0 - 17.6 gm/dL 07/24/2021 10:02 AM [facility] Hematocrit 37.1 35.2 - 51.7 % 07/24/2021 10:02 AM [facility] MCV 83.9 80.7 - 98.3 fl 07/24/2021 10:02 AM [facility] MCH 25.8(L) 26.7 - 34.0 pg 07/24/2021 10:02 AM [facility] MCHC 30.7(L) 30.8 - 35.9 gm/dL 07/24/2021 10:02 AM [facility] Platelet Count 474(H) 153 - 416 x10E9/L 07/24/2021 10:02 AM [facility] RDW-CV 14.0 12.1 - 14.9 % 07/24/2021 10:02 AM [facility] MPV 9.8 9.4 - 12.9 fl 07/24/2021 10:02 AM MA[facility] Neutrophils % 64.2 44.0 - 73.0 % 07/24/2021 10:02 AM [facility] Lymphocytes % 21.5 20.0 - 43.0 % 07/24/2021 10:02 AM [facility] Monocytes % 10.7 5.0 - 13.0 % 07/24/2021 10:02 AM [facility] Eosinophils % 3.1 0.0 - 6.0 % 07/24/2021 10:02 AM [facility] Basophils % 0.2 0.0 - 2.0 % 07/24/2021 10:02 AM [facility] Immature Granulocytes 0.3 0 - 1 % 07/24/2021 10:02 AM [facility] Neutrophil Absolute 5.90 2.01 - 7.14 x10E9/L 07/24/2021 10:02 AM [facility] Lymphocytes Absolute 1.97 1.07 - 3.94 x10E9/L 07/24/2021 10:02 AM [facility] Monocytes Absolute 0.98 0.26 - 1.07 x10E9/L 07/24/2021 10:02 AM [facility] Eosinophils Absolute 0.28 0 - 0.47 x10E9/L 07/24/2021 10:02 AM [facility] Basophils Absolute 0.02 0 - 0.08 x10E9/L 07/24/2021 10:02 AM [facility] Immature Granulocytes Absolute 0.03 0.00 - 0.06 x10E9/L 07/24/2021 10:02 AM [facility] nRBC Auto 0 /100 WBC 07/24/2021 10:02 AM [facility] Blood BLOOD SPECIMEN / Unknown Venipuncture / Unknown 07/24/2021 3:45 AM [facility] 07/24/2021 9:30 AM [facility] Vinicio Quintanilla MD LAB - HEMATOLOGY ORD ERABLES [facility] [address] [place] [address] * (ABNORMAL) COMPREHENSIVE METABOLIC PANEL (07/24/2021 3:45 AM [facility]) [facility] Glucose 110(H) 70 - 105 mg/dL 07/24/2021 10:36 AM [facility] Sodium 141 136 - 145 mmol/L 07/24/2021 10:36 AM [facility] Potassium 4.7 3.5 - 5.1 mmol/L 07/24/2021 10:36 AM [facility] Chloride 102 98 - 107 mmol/L 07/24/2021 10:36 AM [facility] CO2 25 23 - 31 mmol/L 07/24/2021 10:36 AM [facility] Calcium 10.3 8.4 - 10.4 mg/dL 07/24/2021 10:36 AM [facility] Anion Gap 14 8 - 18 mmol/L 07/24/2021 10:36 AM [facility] BUN 33(H) 8.9 - 20.6 mg/dL 07/24/2021 10:36 AM [facility] Creatinine 1.07 0.72 - 1.25 mg/dL 07/24/2021 10:36 AM [facility] Alkaline Phosphatase 195(H) 40 - 150 U/L 07/24/2021 10:36 AM [facility] ALT 40 0 - 61 U/L 07/24/2021 10:36 AM [facility] AST 21 5 - 34 U/L 07/24/2021 10:36 AM [facility] Protein Total 7.7 6.4 - 8.3 gm/dL 07/24/2021 10:36 AM [facility] Albumin 3.7 3.5 - 5.2 gm/dL 07/24/2021 10:36 AM [facility] Bilirubin Total 0.5 0.2 - 1.2 mg/dL 07/24/2021 10:36 AM [facility] eGFR by CKD-EPI >90 >=90 mL/min/1.7 3 m2 07/24/2021 10:36 AM [facility] Blood BLOOD SPECIMEN / Unknown Venipuncture / Unknown 07/24/2021 3:45 AM [facility] 07/24/2021 9:30 AM [facility] - 07/24/2021 10:36 AM [facility] eGFR result was calculated using the updated CKD-EPI Creatinine Equations (2020). Prior to go live 2021 the eGFR was calculated using the MDRD calculation. Please note Reference Range change. Vinicio Quintanilla MD LAB - CHEMISTRY ORDE MIRIAN [facility] [address] [place] [address] documented in this encounter Visit Diagnoses Not on filedocumented in this encounter Care Teams Crane Hoist Or Lift Operator Relationship Specialty Start Date End Date Pepe Martel MD [address] [place] [address] [address] [place] [address] PCP - General 08/14/16 documented as of this encounter
--- OUTSIDE RECORDS SUMMARY | 2024-05-23 03:20 | XMS_ITS | Encounter Summary ---
Author Organization [facility] Health Address [address] [place] [address] Care Team Providers Care Insurance Sales Representative Name Role Phone Pepe Martel MD Primary Care Provider [phone] Encounter Details Date Type Department Care Team (Late st Contact Info) Description 04/24/2021 Lab Requisition [facility] [address] [place] [address] Lamberto De La Cruz MD [address] [facility] [address] [place] [address] Social History Tobacco Use Types [...] Diagnosis Comments CBC W AUTO DIFFERENTIAL STAT 04/24/2021 3:30 AM [facility] COMPREHENSIVE METABOLIC PANEL STAT 04/24/2021 3:30 AM [facility] documented in this encounter Results * (ABNORMAL) CBC WITH DIFFERENTIAL (04/24/2021 3:30 AM [facility]) WBC 7.7 4.4 - 10.7 x10E9/L 04/24/2021 11:28 AM [facility] WBC Corrected 04/24/2021 11:28 AM [facility] RBC 4.09 3.80 - 5.40 x10E12/L 04/24/2021 11:28 AM [facility] Hemoglobin 11.5(L) 12.0 - 17.6 gm/dL 04/24/2021 11:28 AM [facility] Hematocrit 37.1 35.2 - 51.7 % 04/24/2021 11:28 AM [facility] MCV 90.7 80.7 - 98.3 fl 04/24/2021 11:28 AM [facility] MCH 28.1 26.7 - 34.0 pg 04/24/2021 11:28 AM [facility] MCHC 31.0 30.8 - 35.9 gm/dL 04/24/2021 11:28 AM [facility] Platelet Count 403 153 - 416 x10E9/L 04/24/2021 11:28 AM [facility] RDW-CV 14.0 12.1 - 14.9 % 04/24/2021 11:28 AM [facility] MPV 10.3 9.4 - 12.9 fl 04/24/2021 11:28 AM [facility] Neutrophils % 66.7 44.0 - 73.0 % 04/24/2021 11:28 AM [facility] Lymphocytes % 15.7(L) 20.0 - 43.0 % 04/24/2021 11:28 AM [facility] Monocytes % 14.0(H) 5.0 - 13.0 % 04/24/2021 11:28 AM [facility] Eosinophils % 3.0 0.0 - 6.0 % 04/24/2021 11:28 AM [facility] Basophils % 0.5 0.0 - 2.0 % 04/24/2021 11:28 AM [facility] Immature Granulocytes 0.1 0 - 1 % 04/24/2021 11:28 AM [facility] Neutrophil Absolute 5.13 2.01 - 7.14 x10E9/L 04/24/2021 11:28 AM [facility] Lymphocytes Absolute 1.21 1.07 - 3.94 x10E9/L 04/24/2021 11:28 AM [facility] Monocytes Absolute 1.08(H) 0.26 - 1.07 x10E9/L 04/24/2021 11:28 AM [facility] Eosinophils Absolute 0.23 0 - 0.47 x10E9/L 04/24/2021 11:28 AM [facility] Basophils Absolute 0.04 0 - 0.08 x10E9/L 04/24/2021 11:28 AM [facility] Immature Granulocytes Absolute 0.01 0.00 - 0.06 x10E9/L 04/24/2021 11:28 AM [facility] nRBC Auto 0 /100 WBC 04/24/2021 11:28 AM [facility] Blood BLOOD SPECIMEN / Unknown Venipuncture / Unknown 04/24/2021 3:30 AM [facility] 04/24/2021 11:01 AM [facility] Lamberto De La Cruz MD LAB - HEMATOLOGY ORD ERABLES [facility] [address] [place] [address] * (ABNORMAL) COMPREHENSIVE METABOLIC PANEL (04/24/2021 3:30 AM [facility]) [facility] Glucose 108(H) 70 - 105 mg/dL 04/24/2021 11:47 AM [facility] Sodium 139 136 - 145 mmol/L 04/24/2021 11:47 AM [facility] Potassium 4.7 3.5 - 5.1 mmol/L 04/24/2021 11:47 AM [facility] Chloride 104 98 - 107 mmol/L 04/24/2021 11:47 AM [facility] CO2 20(L) 23 - 31 mmol/L 04/24/2021 11:47 AM [facility] Calcium 9.9 8.4 - 10.4 mg/dL 04/24/2021 11:47 AM [facility] Anion Gap 15 8 - 18 mmol/L 04/24/2021 11:47 AM [facility] BUN 28(H) 8.9 - 20.6 mg/dL 04/24/2021 11:47 AM [facility] Creatinine 0.95 0.72 - 1.25 mg/dL 04/24/2021 11:47 AM [facility] Alkaline Phosphatase 86 40 - 150 U/L 04/24/2021 11:47 AM [facility] ALT 24 0 - 61 U/L 04/24/2021 11:47 AM [facility] AST 25 5 - 34 U/L 04/24/2021 11:47 AM [facility] Protein Total 8.1 6.4 - 8.3 gm/dL 04/24/2021 11:47 AM [facility] Albumin 3.8 3.5 - 5.2 gm/dL 04/24/2021 11:47 AM [facility] Bilirubin Total 0.3 0.2 - 1.2 mg/dL 04/24/2021 11:47 AM [facility] eGFR by MDRD >60 >60 mL/min/1.7 3m2 04/24/2021 11:47 AM [facility] eGFR by MDRD >60 >60 mL/min/1.7 3m2 04/24/2021 11:47 AM [facility] Blood BLOOD SPECIMEN / Unknown Venipuncture / Unknown 04/24/2021 3:30 AM [facility] 04/24/2021 11:01 AM [facility] Lamebrto De La Cruz MD LAB - CHEMISTRY JOSE ENRIQUE VELA [facility] Organization Address City/State/ZIP Co de Phone Number [facility] [address] [place] [address] documented in this encounter Visit Diagnoses Not on filedocumented in this encounter Care Teams Insurance Sales Representative Relationship Specialty Start Date End Date Pepe Martel MD [address] [place] [id number] PCP - General 08/14/16 documented as of this encounter
--- OUTSIDE RECORDS SUMMARY | 2024-05-23 03:20 | XMS_ITS | Encounter Summary ---
Author Organization [facility] Health Address [address] [place] [address] Care Team Providers Care Pattern Changer Name Role Phone Pepe Martel MD Primary Care Provider [phone] Encounter Details Date Type Department Care Team (Late st Contact Info) Description 05/29/2021 Lab Requisition [facility] [address] [place] [address] Lamberto De La Cruz MD [address] [facility] [address] [place] [address] Social History Tobacco Use Types [...] Diagnosis Comments CBC W AUTO DIFFERENTIAL STAT 05/29/2021 3:10 AM SEED TRUCKER COMPREHENSIVE METABOLIC PANEL STAT 05/29/2021 3:10 AM SEED TRUCKER documented in this encounter Results * (ABNORMAL) CBC WITH DIFFERENTIAL (05/29/2021 3:10 AM SEED TRUCKER) WBC 9.0 4.4 - 10.7 x10E9/L 05/29/2021 11:42 AM SEED TRUCKER [facility] WBC Corrected 05/29/2021 11:42 AM SEED TRUCKER [facility] RBC 3.78(L) 3.80 - 5.40 x10E12/L 05/29/2021 11:42 AM SEED TRUCKER [facility] Hemoglobin 10.4(L) 12.0 - 17.6 gm/dL 05/29/2021 11:42 AM SEED TRUCKER [facility] Hematocrit 33.2(L) 35.2 - 51.7 % 05/29/2021 11:42 AM SEED TRUCKER [facility] MCV 87.8 80.7 - 98.3 fl 05/29/2021 11:42 AM SEED TRUCKER [facility] MCH 27.5 26.7 - 34.0 pg 05/29/2021 11:42 AM SEED TRUCKER [facility] MCHC 31.3 30.8 - 35.9 gm/dL 05/29/2021 11:42 AM SEED TRUCKER [facility] Platelet Count 507(H) 153 - 416 x10E9/L 05/29/2021 11:42 AM SEED TRUCKER [facility] RDW-CV 12.0(L) 12.1 - 14.9 % 05/29/2021 11:42 AM SEED TRUCKER [facility] MPV 9.8 9.4 - 12.9 fl 05/29/2021 11:42 AM SEED TRUCKER [facility] Neutrophils % 67.3 44.0 - 73.0 % 05/29/2021 11:42 AM SEED TRUCKER [facility] Lymphocytes % 15.0(L) 20.0 - 43.0 % 05/29/2021 11:42 AM [facility] Monocytes % 12.6 5.0 - 13.0 % 05/29/2021 11:42 AM [facility] Eosinophils % 4.4 0.0 - 6.0 % 05/29/2021 11:42 AM [facility] Basophils % 0.4 0.0 - 2.0 % 05/29/2021 11:42 AM [facility] Immature Granulocytes 0.3 0 - 1 % 05/29/2021 11:42 AM [facility] Neutrophil Absolute 6.07 2.01 - 7.14 x10E9/L 05/29/2021 11:42 AM [facility] Lymphocytes Absolute 1.35 1.07 - 3.94 x10E9/L 05/29/2021 11:42 AM [facility] Monocytes Absolute 1.14(H) 0.26 - 1.07 x10E9/L 05/29/2021 11:42 AM [facility] Eosinophils Absolute 0.40 0 - 0.47 x10E9/L 05/29/2021 11:42 AM [facility] Basophils Absolute 0.04 0 - 0.08 x10E9/L 05/29/2021 11:42 AM [facility] Immature Granulocytes Absolute 0.03 0.00 - 0.06 x10E9/L 05/29/2021 11:42 AM [facility] nRBC Auto 0 /100 WBC 05/29/2021 11:42 AM [facility] Blood BLOOD SPECIMEN / Unknown Venipuncture / Unknown 05/29/2021 3:10 AM SEED TRUCKER 05/29/2021 11:13 AM [facility] Lamberto De La Cruz MD LAB - HEMATOLOGY ORD ERABLES [facility] [address] [place] [address] * (ABNORMAL) COMPREHENSIVE METABOLIC PANEL (05/29/2021 3:10 AM [facility]) [facility] Glucose 99 70 - 105 mg/dL 05/29/2021 12:05 PM [facility] Sodium 135(L) 136 - 145 mmol/L 05/29/2021 12:05 PM [facility] Potassium 5.4(H) 3.5 - 5.1 mmol/L 05/29/2021 12:05 PM [facility] Chloride 99 98 - 107 mmol/L 05/29/2021 12:05 PM [facility] CO2 24 23 - 31 mmol/L 05/29/2021 12:05 PM [facility] Calcium 9.8 8.4 - 10.4 mg/dL 05/29/2021 12:05 PM [facility] Anion Gap 12 8 - 18 mmol/L 05/29/2021 12:05 PM [facility] BUN 27(H) 8.9 - 20.6 mg/dL 05/29/2021 12:05 PM [facility] Creatinine 0.77 0.72 - 1.25 mg/dL 05/29/2021 12:05 PM [facility] Alkaline Phosphatase 153(H) 40 - 150 U/L 05/29/2021 12:05 PM [facility] ALT 44 0 - 61 U/L 05/29/2021 12:05 PM [facility] AST 27 5 - 34 U/L 05/29/2021 12:05 PM [facility] Protein Total 7.5 6.4 - 8.3 gm/dL 05/29/2021 12:05 PM [facility] Albumin 3.4(L) 3.5 - 5.2 gm/dL 05/29/2021 12:05 PM [facility] Bilirubin Total 0.3 0.2 - 1.2 mg/dL 05/29/2021 12:05 PM [facility] eGFR by MDRD >60 >60 mL/min/1.7 3m2 05/29/2021 12:05 PM [facility] eGFR by MDRD >60 >60 mL/min/1.7 3m2 05/29/2021 12:05 PM [facility] Blood BLOOD SPECIMEN / Unknown Venipuncture / Unknown 05/29/2021 3:10 AM SEED TRUCKER 05/29/2021 11:13 AM [facility] Lamberto De La Cruz MD LAB - CHEMISTRY [facility] Organization Address City/State/ZIP Co de Phone Number [facility] [address] [place] [address] documented in this encounter Visit Diagnoses Not on filedocumented in this encounter Care Teams Pattern Changer Relationship Specialty Start Date End Date Pepe Martel MD [address] [place] [phone] PCP - General 08/14/16 documented as of this encounter
--- OUTSIDE RECORDS SUMMARY | 2024-05-23 03:20 | XMS_ITS | Encounter Summary ---
Author Organization [facility] Address [address] [place] [address] Care Team Providers Care Hand Collator Name Role Phone Pepe Martel MD Primary Care Provider [phone] Encounter Details Date Type Department Care Team (Late st Contact Info) Description 06/30/2021 Lab Requisition [facility] [address] [place] [address] [place] [address] [place] [address] Social History Tobacco Use Types Packs/Day Years [...] Diagnosis Comments CBC W AUTO DIFFERENTIAL STAT 06/30/2021 2:30 AM TUNNEL HEADING INSPECTOR COMPREHENSIVE METABOLIC PANEL STAT 06/30/2021 2:30 AM TUNNEL HEADING INSPECTOR documented in this encounter Results * (ABNORMAL) CBC WITH DIFFERENTIAL (06/30/2021 2:30 AM TUNNEL HEADING INSPECTOR) WBC 9.5 4.4 - 10.7 x10E9/L 06/30/2021 9:07 AM TUNNEL HEADING INSPECTOR [facility] WBC Corrected 06/30/2021 9:07 AM TUNNEL HEADING INSPECTOR [facility] RBC 4.45 3.80 - 5.40 x10E12/L 06/30/2021 9:07 AM TUNNEL HEADING INSPECTOR [facility] Hemoglobin 11.8(L) 12.0 - 17.6 gm/dL 06/30/2021 9:07 AM TUNNEL HEADING INSPECTOR [facility] Hematocrit 37.1 35.2 - 51.7 % 06/30/2021 9:07 AM TUNNEL HEADING INSPECTOR [facility] MCV 83.4 80.7 - 98.3 fl 06/30/2021 9:07 AM TUNNEL HEADING INSPECTOR [facility] MCH 26.5(L) 26.7 - 34.0 pg 06/30/2021 9:07 AM TUNNEL HEADING INSPECTOR [facility] MCHC 31.8 30.8 - 35.9 gm/dL 06/30/2021 9:07 AM TUNNEL HEADING INSPECTOR [facility] Platelet Count 468(H) 153 - 416 x10E9/L 06/30/2021 9:07 AM TUNNEL HEADING INSPECTOR [facility] RDW-CV 12.8 12.1 - 14.9 % 06/30/2021 9:07 AM TUNNEL HEADING INSPECTOR [facility] MPV 10.1 9.4 - 12.9 fl 06/30/2021 9:07 AM TUNNEL HEADING INSPECTOR [facility] Neutrophils % 63.1 44.0 - 73.0 % 06/30/2021 9:07 AM TUNNEL HEADING INSPECTOR [facility] Lymphocytes % 24.4 20.0 - 43.0 % 06/30/2021 9:07 AM TUNNEL HEADING INSPECTOR [facility] Monocytes % 8.0 5.0 - 13.0 % 06/30/2021 9:07 AM [facility] Eosinophils % 3.6 0.0 - 6.0 % 06/30/2021 9:07 AM [facility] Basophils % 0.5 0.0 - 2.0 % 06/30/2021 9:07 AM [facility] Immature Granulocytes 0.4 0 - 1 % 06/30/2021 9:07 AM [facility] Neutrophil Absolute 6.00 2.01 - 7.14 x10E9/L 06/30/2021 9:07 AM [facility] Lymphocytes Absolute 2.32 1.07 - 3.94 x10E9/L 06/30/2021 9:07 AM [facility] Monocytes Absolute 0.76 0.26 - 1.07 x10E9/L 06/30/2021 9:07 AM [facility] Eosinophils Absolute 0.34 0 - 0.47 x10E9/L 06/30/2021 9:07 AM [facility] Basophils Absolute 0.05 0 - 0.08 x10E9/L 06/30/2021 9:07 AM [facility] Immature Granulocytes Absolute 0.04 0.00 - 0.06 x10E9/L 06/30/2021 9:07 AM [facility] nRBC Auto 0 /100 WBC 06/30/2021 9:07 AM [facility] Blood BLOOD SPECIMEN / Unknown Venipuncture / Unknown 06/30/2021 2:30 AM TUNNEL HEADING INSPECTOR 06/30/2021 8:35 AM [facility] Vinicio Quintanilla MD LAB - HEMATOLOGY ORD ERABLES [facility] [address] [place] [address] * (ABNORMAL) COMPREHENSIVE METABOLIC PANEL (06/30/2021 2:30 AM [facility]) [facility] Glucose 107(H) 70 - 105 mg/dL 06/30/2021 9:43 AM [facility] Sodium 141 136 - 145 mmol/L 06/30/2021 9:43 AM [facility] Potassium 4.8 3.5 - 5.1 mmol/L 06/30/2021 9:43 AM [facility] Chloride 102 98 - 107 mmol/L 06/30/2021 9:43 AM [facility] CO2 27 23 - 31 mmol/L 06/30/2021 9:43 AM [facility] Calcium 10.0 8.4 - 10.4 mg/dL 06/30/2021 9:43 AM [facility] Anion Gap 12 8 - 18 mmol/L 06/30/2021 9:43 AM [facility] BUN 31(H) 8.9 - 20.6 mg/dL 06/30/2021 9:43 AM [facility] Creatinine 1.06 0.72 - 1.25 mg/dL 06/30/2021 9:43 AM [facility] Alkaline Phosphatase 143 40 - 150 U/L 06/30/2021 9:43 AM [facility] ALT 38 0 - 61 U/L 06/30/2021 9:43 AM [facility] AST 17 5 - 34 U/L 06/30/2021 9:43 AM [facility] Protein Total 8.1 6.4 - 8.3 gm/dL 06/30/2021 9:43 AM [facility] Albumin 3.9 3.5 - 5.2 gm/dL 06/30/2021 9:43 AM [facility] Bilirubin Total 0.3 0.2 - 1.2 mg/dL 06/30/2021 9:43 AM [facility] eGFR by MDRD >60 >60 mL/min/1.7 3m2 06/30/2021 9:43 AM [facility] eGFR by MDRD >60 >60 mL/min/1.7 3m2 06/30/2021 9:43 AM [facility] Blood BLOOD SPECIMEN / Unknown Venipuncture / Unknown 06/30/2021 2:30 AM 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 [address] [place] [address] documented in this encounter Visit Diagnoses Not on filedocumented in this encounter Care Teams Hand Collator Relationship Specialty Start Date End Date Pepe Martel MD [address] [place] [phone] PCP - General 08/14/16 documented as of this encounter
--- OUTSIDE RECORDS SUMMARY | 2024-05-23 03:20 | XMS_ITS | Encounter Summary ---
Author Organization [facility] Address [address] [place] [address] Care Team Providers Care Leasing Manager Name Role Phone Pepe Martel MD Primary Care Provider [phone] Encounter Details Date Type Department Care Team (Late st Contact Info) Description 07/10/[address] [facility] [address] [place] [address] [place] [address] [place] [address] Social History Tobacco Use Types Packs/Day Years [...] Diagnosis Comments CBC W AUTO DIFFERENTIAL STAT 07/10/2021 2:43 AM ENROLLMENT CONSULTANT COMPREHENSIVE METABOLIC PANEL STAT 07/10/2021 2:43 AM ENROLLMENT CONSULTANT documented in this encounter Results * (ABNORMAL) COMPREHENSIVE METABOLIC PANEL (07/10/2021 2:43 AM ENROLLMENT CONSULTANT) Glucose 98 70 - 105 mg/dL 07/10/2021 11:05 AM [facility] Sodium 140 136 - 145 mmol/L 07/10/2021 11:05 AM [facility] Potassium 5.2(H) 3.5 - 5.1 mmol/L 07/10/2021 11:05 AM [facility] Chloride 102 98 - 107 mmol/L 07/10/2021 11:05 AM [facility] CO2 24 23 - 31 mmol/L 07/10/2021 11:05 AM [facility] Calcium 9.9 8.4 - 10.4 mg/dL 07/10/2021 11:05 AM [facility] Anion Gap 14 8 - 18 mmol/L 07/10/2021 11:05 AM [facility] BUN 29(H) 8.9 - 20.6 mg/dL 07/10/2021 11:05 AM [facility] Creatinine 0.85 0.72 - 1.25 mg/dL 07/10/2021 11:05 AM [facility] Alkaline Phosphatase 135 40 - 150 U/L 07/10/2021 11:05 AM [facility] ALT 32 0 - 61 U/L 07/10/2021 11:05 AM [facility] AST 17 5 - 34 U/L 07/10/2021 11:05 AM [facility] Protein Total 7.7 6.4 - 8.3 gm/dL 07/10/2021 11:05 AM [facility] Albumin 3.8 3.5 - 5.2 gm/dL 07/10/2021 11:05 AM [facility] Bilirubin Total 0.3 0.2 - 1.2 mg/dL 07/10/2021 11:05 AM [facility] eGFR by MDRD >60 >60 mL/min/1.7 3m2 07/10/2021 11:05 AM [facility] eGFR by MDRD >60 >60 mL/min/1.7 3m2 07/10/2021 11:05 AM [facility] Blood BLOOD SPECIMEN / Unknown Venipuncture / Unknown 07/10/2021 2:43 AM ENROLLMENT CONSULTANT 07/10/2021 10:14 AM ENROLLMENT CONSULTANT Vinicio Quintanilla MD LAB - CHEMISTRY ORDE [facility] Organization Address City/State/ZIP Co de Phone Number [facility] [address] [place] [address] * (ABNORMAL) CBC WITH DIFFERENTIAL (07/10/2021 2:43 AM [facility]) WBC 10.4 4.4 - 10.7 x10E9/L 07/10/2021 10:41 AM [facility] WBC Corrected 07/10/2021 10:41 AM [facility] RBC 4.35 3.80 - 5.40 x10E12/L 07/10/2021 10:41 AM [facility] Hemoglobin 11.4(L) 12.0 - 17.6 gm/dL 07/10/2021 10:41 AM [facility] Hematocrit 36.3 35.2 - 51.7 % 07/10/2021 10:41 AM [facility] MCV 83.4 80.7 - 98.3 fl 07/10/2021 10:41 AM [facility] MCH 26.2(L) 26.7 - 34.0 pg 07/10/2021 10:41 AM [facility] MCHC 31.4 30.8 - 35.9 gm/dL 07/10/2021 10:41 AM [facility] Platelet Count 421(H) 153 - 416 x10E9/L 07/10/2021 10:41 AM [facility] RDW-CV 13.2 12.1 - 14.9 % 07/10/2021 10:41 AM [facility] MPV 10.5 9.4 - 12.9 fl 07/10/2021 10:41 AM [facility] Neutrophils % 66.2 44.0 - 73.0 % 07/10/2021 10:41 AM [facility] Lymphocytes % 19.7(L) 20.0 - 43.0 % 07/10/2021 10:41 AM [facility] Monocytes % 9.5 5.0 - 13.0 % 07/10/2021 10:41 AM [facility] Eosinophils % 3.9 0.0 - 6.0 % 07/10/2021 10:41 AM [facility] Basophils % 0.3 0.0 - 2.0 % 07/10/2021 10:41 AM [facility] Immature Granulocytes 0.4 0 - 1 % 07/10/2021 10:41 AM [facility] Neutrophil Absolute 6.89 2.01 - 7.14 x10E9/L 07/10/2021 10:41 AM [facility] Lymphocytes Absolute 2.05 1.07 - 3.94 x10E9/L 07/10/2021 10:41 AM [facility] Monocytes Absolute 0.99 0.26 - 1.07 x10E9/L 07/10/2021 10:41 AM [facility] Eosinophils Absolute 0.41 0 - 0.47 x10E9/L 07/10/2021 10:41 AM [facility] Basophils Absolute 0.03 0 - 0.08 x10E9/L 07/10/2021 10:41 AM [facility] Immature Granulocytes Absolute 0.04 0.00 - 0.06 x10E9/L 07/10/2021 10:41 AM [facility] nRBC Auto 0 /100 WBC 07/10/2021 10:41 AM [facility] Blood BLOOD SPECIMEN / Unknown Venipuncture / Unknown 07/10/2021 2:43 AM ENROLLMENT CONSULTANT 07/10/2021 10:14 AM ENROLLMENT CONSULTANT Vinicio Quintanilla MD LAB - HEMATOLOGY ORD ERABLES [facility] [address] [place] [address] documented in this encounter Visit Diagnoses Not on filedocumented in this encounter Care Teams Leasing Manager Relationship Specialty Start Date End Date Pepe Martel MD [address] [place] [id number] PCP - General 08/14/16 documented as of this encounter
--- OUTSIDE RECORDS SUMMARY | 2024-05-23 03:20 | XMS_ITS | Encounter Summary ---
Author Organization [facility] Health Address [address] [facility] [place] [address] Care Team Providers Care Data Science And Iot Manager Name Role Phone Pepe Martel MD Primary Care Provider [phone] Encounter Details Date Type Department Care Team (Late st Contact Info) Description 05/19/2021 Lab Requisition [facility] [address] [place] [address] Lamberto De La Cruz MD [address] [facility] [address] [place] [address] Social History Tobacco Use Types [...] Diagnosis Comments CBC W AUTO DIFFERENTIAL STAT 05/19/2021 3:30 AM DIGESTER OPERATOR HELPER COMPREHENSIVE METABOLIC PANEL STAT 05/19/2021 3:30 AM DIGESTER OPERATOR HELPER VANCOMYCIN LEVEL TROUGH STAT 05/19/2021 3:30 AM DIGESTER OPERATOR HELPER documented in this encounter Results * VANCOMYCIN LEVEL TROUGH (05/19/2021 3:30 AM DIGESTER OPERATOR HELPER) Pathologist [facility] Vancomycin Trough 18.1 10.0 - 20.0 ug/mL 05/19/2021 12:14 PM DIGESTER OPERATOR HELPER [facility] Blood BLOOD SPECIMEN / Unknown Venipuncture / Unknown 05/19/2021 3:30 AM DIGESTER OPERATOR HELPER 05/19/2021 11:41 AM DIGESTER OPERATOR HELPER Lamberto De La Cruz MD [facility] Organization Address City/State/[facility] Co de Phone Number [facility] [address] [place] [address] * (ABNORMAL) CBC WITH DIFFERENTIAL (05/19/2021 3:30 AM DIGESTER OPERATOR HELPER) Pathologist [facility] WBC 7.8 4.4 - 10.7 x10E9/L 05/19/2021 10:13 AM DIGESTER OPERATOR HELPER [facility] WBC Corrected 05/19/2021 10:13 AM DIGESTER OPERATOR HELPER [facility] RBC 3.99 3.80 - 5.40 x10E12/L 05/19/2021 10:13 AM DIGESTER OPERATOR HELPER [facility] Hemoglobin 11.0(L) 12.0 - 17.6 gm/dL 05/19/2021 10:13 AM DIGESTER OPERATOR HELPER [facility] Hematocrit 35.2 35.2 - 51.7 % 05/19/2021 10:13 AM DIGESTER OPERATOR HELPER [facility] MCV 88.2 80.7 - 98.3 fl 05/19/2021 10:13 AM DIGESTER OPERATOR HELPER [facility] MCH 27.6 26.7 - 34.0 pg 05/19/2021 10:13 AM [facility] MCHC 31.3 30.8 - 35.9 gm/dL 05/19/2021 10:13 AM [facility] Platelet Count 363 153 - 416 x10E9/L 05/19/2021 10:13 AM [facility] RDW-CV 12.1 12.1 - 14.9 % 05/19/2021 10:13 AM [facility] MPV 10.4 9.4 - 12.9 fl 05/19/2021 10:13 AM [facility] Neutrophils % 67.6 44.0 - 73.0 % 05/19/2021 10:13 AM [facility] Lymphocytes % 16.6(L) 20.0 - 43.0 % 05/19/2021 10:13 AM [facility] Monocytes % 9.8 5.0 - 13.0 % 05/19/2021 10:13 AM [facility] Eosinophils % 5.3 0.0 - 6.0 % 05/19/2021 10:13 AM [facility] Basophils % 0.4 0.0 - 2.0 % 05/19/2021 10:13 AM [facility] Immature Granulocytes 0.3 0 - 1 % 05/19/2021 10:13 AM [facility] Neutrophil Absolute 5.25 2.01 - 7.14 x10E9/L 05/19/2021 10:13 AM [facility] Lymphocytes Absolute 1.29 1.07 - 3.94 x10E9/L 05/19/2021 10:13 AM [facility] Monocytes Absolute 0.76 0.26 - 1.07 x10E9/L 05/19/2021 10:13 AM [facility] Eosinophils Absolute 0.41 0 - 0.47 x10E9/L 05/19/2021 10:13 AM [facility] Basophils Absolute 0.03 0 - 0.08 x10E9/L 05/19/2021 10:13 AM [facility] Immature Granulocytes Absolute 0.02 0.00 - 0.06 x10E9/L 05/19/2021 10:13 AM [facility] nRBC Auto 0 /100 WBC 05/19/2021 10:13 AM [facility] Blood BLOOD SPECIMEN / Unknown Venipuncture / Unknown 05/19/2021 3:30 AM DIGESTER OPERATOR HELPER 05/19/2021 9:41 AM [facility] Lamberto De La Cruz MD LAB - HEMATOLOGY ORD ERABLES [facility] [address] [place] [address] * (ABNORMAL) COMPREHENSIVE METABOLIC PANEL (05/19/2021 3:30 AM [facility]) Glucose 110(H) 70 - 105 mg/dL 05/19/2021 10:27 AM [facility] Sodium 139 136 - 145 mmol/L 05/19/2021 10:27 AM [facility] Potassium 4.7 3.5 - 5.1 mmol/L 05/19/2021 10:27 AM [facility] Chloride 105 98 - 107 mmol/L 05/19/2021 10:27 AM [facility] CO2 24 23 - 31 mmol/L 05/19/2021 10:27 AM [facility] Calcium 9.3 8.4 - 10.4 mg/dL 05/19/2021 10:27 AM [facility] Anion Gap 10 8 - 18 mmol/L 05/19/2021 10:27 AM [facility] BUN 30(H) 8.9 - 20.6 mg/dL 05/19/2021 10:27 AM [facility] Creatinine 0.90 0.72 - 1.25 mg/dL 05/19/2021 10:27 AM [facility] Alkaline Phosphatase 93 40 - 150 U/L 05/19/2021 10:27 AM [facility] ALT 29 0 - 61 U/L 05/19/2021 10:27 AM [facility] AST 19 5 - 34 U/L 05/19/2021 10:27 AM [facility] Protein Total 7.3 6.4 - 8.3 gm/dL 05/19/2021 10:27 AM [facility] Albumin 3.7 3.5 - 5.2 gm/dL 05/19/2021 10:27 AM [facility] Bilirubin Total 0.3 0.2 - 1.2 mg/dL 05/19/2021 10:27 AM [facility] eGFR by MDRD >60 >60 mL/min/1.7 3m2 05/19/2021 10:27 AM [facility] eGFR by MDRD >60 >60 mL/min/1.7 3m2 05/19/2021 10:27 AM [facility] Blood BLOOD SPECIMEN / Unknown Venipuncture / Unknown 05/19/2021 3:30 AM [facility] 05/19/2021 9:41 AM [facility] Lamberto De La Cruz MD LAB - CHEMISTRY JOSE ENRIQUE VELA [facility] Organization Address City/State/[facility] Co de Phone Number [facility] [address] [place] [address] documented in this encounter Visit Diagnoses Not on filedocumented in this encounter Care Teams Data Science And Iot Manager Relationship Specialty Start Date End Date Pepe Martel MD [address] [place] [address] PCP - General 08/14/16 documented as of this encounter
--- OUTSIDE RECORDS SUMMARY | 2024-05-23 03:20 | XMS_ITS | Encounter Summary ---
Author Organization [facility] Health Address [address] [place] [address] Care Team Providers Care Coil Connector Repairer Name Role Phone Pepe Martel MD Primary Care Provider [phone] Encounter Details Date Type Department Care Team (Late st Contact Info) Description 07/04/[address] [facility] [address] [place] [address] Fredy Sue [address] [place] [id number] Social History Tobacco Use Types Packs/Day Years [...] URINALYSIS REFLEX TO MICROSCOPIC NO CULTURE STAT 07/04/2021 4:00 AM FUR DESIGNER documented in this encounter Results * (ABNORMAL) URINALYSIS REFLEX TO MICROSCOPIC NO CULTURE (07/04/2021 4:00 AM FUR DESIGNER) Color UA Yellow Straw, Yellow 07/04/2021 9:38 AM [facility] Clarity UA Cloudy(A) Clear 07/04/2021 9:38 AM [facility] Glucose UA Negative Negative 07/04/2021 9:[address] [facility] Bilirubin UA Negative Negative 07/04/2021 9:[address] [facility] Ketone UA Negative Negative 07/04/2021 9:38 AM [facility] Specific Stow UA 1.021 1.005 - 1.030 07/04/2021 9:[address] [facility] Blood UA Negative Negative 07/04/2021 9:38 AM [facility] pH UA 7.0 5.0 - 8.0 pH 07/04/2021 9:38 AM [facility] Protein UA Negative Negative 07/04/2021 9:38 AM [facility] Urobilinogen UA Negative Negative mg/dL 07/04/2021 9:38 AM [facility] Nitrite UA Negative Negative 07/04/2021 9:38 AM [facility] Leukocyte UA Negative Negative 07/04/2021 9:38 AM [facility] Urine Microscopy Urine microscopy not indicated 07/04/2021 9:38 AM [facility] Urine URINE SPECIMEN OBTAINED BY CLEAN CATCH PROCEDURE / Unknown Collection / Unknown 07/04/2021 4:00 AM FUR DESIGNER 07/04/2021 8:59 AM FUR [address] [facility] - 07/04/2021 9:38 AM FUR DESIGNER Ascorbic Acid can cause false negative urine strip tests for blood, glucose, nitrite, and bilirubin. Fredy Sue LAB - URINALYSIS ORD ERABLES [facility] [address] [place] [address] documented in this encounter Visit Diagnoses Not on filedocumented in this encounter Care Teams Coil Connector Repairer Relationship Specialty Start Date End Date Pepe Martel MD [address] [place] [address] [address] [place] [address] PCP - General 08/14/16 documented as of this encounter
--- OUTSIDE RECORDS SUMMARY | 2024-05-23 03:20 | XMS_ITS | Encounter Summary ---
Author Organization [facility] Health Address [address] [facility] [place] [address] Care Team Providers Care Telephoto Installer Name Role Phone Pepe Martel MD Primary Care Provider [phone] Encounter Details Date Type Department Care Team (Late st Contact Info) Description 04/21/2021 Lab Requisition [facility] [address] [place] [address] Lamberto De La Cruz MD [address] [facility] [address] [place] [address] Social History Tobacco Use Types [...] Diagnosis Comments CBC W AUTO DIFFERENTIAL Routine 04/21/2021 3:30 AM [facility] COMPREHENSIVE METABOLIC PANEL Routine 04/21/2021 3:30 AM GR[facility]ERY SHOPPER documented in this encounter Results * (ABNORMAL) COMPREHENSIVE METABOLIC PANEL (04/21/2021 3:30 AM [facility]) Glucose 89 70 - 105 mg/dL 04/21/2021 12:54 PM [facility] Sodium 136 136 - 145 mmol/L 04/21/2021 12:54 PM [facility] Potassium 4.5 3.5 - 5.1 mmol/L 04/21/2021 12:54 PM [facility] Chloride 102 98 - 107 mmol/L 04/21/2021 12:54 PM [facility] CO2 21(L) 23 - 31 mmol/L 04/21/2021 12:54 PM [facility] Calcium 9.7 8.4 - 10.4 mg/dL 04/21/2021 12:54 PM [facility] Anion Gap 13 8 - 18 mmol/L 04/21/2021 12:54 PM [facility] BUN 28(H) 8.9 - 20.6 mg/dL 04/21/2021 12:54 PM [facility] Creatinine 0.86 0.72 - 1.25 mg/dL 04/21/2021 12:54 PM [facility] Alkaline Phosphatase 81 40 - 150 U/L 04/21/2021 12:54 PM [facility] ALT 24 0 - 61 U/L 04/21/2021 12:54 PM [facility] AST 23 5 - 34 U/L 04/21/2021 12:54 PM [facility] Protein Total 7.7 6.4 - 8.3 gm/dL 04/21/2021 12:54 PM [facility] Albumin 3.7 3.5 - 5.2 gm/dL 04/21/2021 12:54 PM [facility] Bilirubin Total 0.2 0.2 - 1.2 mg/dL 04/21/2021 12:54 PM [facility]PER [facility] eGFR by MDRD >60 >60 mL/min/1.7 3m2 04/21/2021 12:[address] [facility] eGFR by MDRD >60 >60 mL/min/1.7 3m2 04/21/2021 12:[address] [facility] Blood BLOOD SPECIMEN / Unknown Venipuncture / Unknown 04/21/2021 3:30 AM [facility] 04/21/2021 11:53 AM [facility]PER Lamberto De La Cruz MD [facility] Organization Address City/State/[facility] Co de Phone Number [facility] [address] [place], [place] [id number] * (ABNORMAL) CBC WITH DIFFERENTIAL (04/21/2021 3:30 AM GROC[facility] SHOPPER) WBC 6.7 4.4 - 10.7 x10E9/L 04/21/2021 11:[address] [facility] WBC Corrected 04/21/2021 11:[address] [facility] RBC 3.95 3.80 - 5.40 x10E12/L 04/21/2021 11:[address] [facility] Hemoglobin 11.1(L) 12.0 - 17.6 gm/dL 04/21/2021 11:[address] [facility] Hematocrit 35.6 35.2 - 51.7 % 04/21/2021 11:[address] [facility] MCV 90.1 80.7 - 98.3 fl 04/21/2021 11:[address] [facility] MCH 28.1 26.7 - 34.0 pg 04/21/2021 11:[address] [facility] MCHC 31.2 30.8 - 35.9 gm/dL 04/21/2021 11:[address] [facility] Platelet Count 367 153 - 416 x10E9/L 04/21/2021 11:[address] [facility] RDW-CV 14.4 12.1 - 14.9 % 04/21/2021 11:[address] [facility] MPV 10.3 9.4 - 12.9 fl 04/21/2021 11:[address] [facility] Neutrophils % 58.6 44.0 - 73.0 % 04/21/2021 11:[address] [facility] Lymphocytes % 19.7(L) 20.0 - 43.0 % 04/21/2021 11:[address] [facility] Monocytes % 16.8(H) 5.0 - 13.0 % 04/21/2021 11:[address] [facility] Eosinophils % 4.1 0.0 - 6.0 % 04/21/2021 11:[address] [facility] Basophils % 0.6 0.0 - 2.0 % 04/21/2021 11:[address] [facility] Immature Granulocytes 0.2 0 - 1 % 04/21/2021 11:[address] [facility] Neutrophil Absolute 3.91 2.01 - 7.14 x10E9/L 04/21/2021 11:[address] [facility] Lymphocytes Absolute 1.31 1.07 - 3.94 x10E9/L 04/21/2021 11:[address] [facility] Monocytes Absolute 1.12(H) 0.26 - 1.07 x10E9/L 04/21/2021 11:[address] [facility] Eosinophils Absolute 0.27 0 - 0.47 x10E9/L 04/21/2021 11:[address] [facility] Basophils Absolute 0.04 0 - 0.08 x10E9/L 04/21/2021 11:[address] [facility] Immature Granulocytes Absolute 0.01 0.00 - 0.06 x10E9/L 04/21/2021 11:[address] [facility] nRBC Auto 0 /100 WBC 04/21/2021 11:[address] [facility] Blood BLOOD SPECIMEN / Unknown Venipuncture / Unknown 04/21/2021 3:30 AM GROCERY SHOPPER 04/21/2021 11:53 AM GROCERY SHOPPER Lamberto De La Cruz MD LAB - HEMATOLOGY ORD ERABLES [facility] [address] [place] [address] documented in this encounter Visit Diagnoses Not on filedocumented in this encounter Care Teams Telephoto Installer Relationship Specialty Start Date End Date Pepe Martel MD [address] [place] [id number] PCP - General 08/14/16 documented as of this encounter
--- OUTSIDE RECORDS SUMMARY | 2024-05-23 03:20 | XMS_ITS | Encounter Summary ---
Author Organization [facility] Health Address [address] [facility] [place] [address] Care Team Providers Care Armature Tester Name Role Phone Pepe Martel MD Primary Care Provider [phone] Encounter Details Date Type Department Care Team (Late st Contact Info) Description 06/02/2021 Lab Requisition [facility] [address] [place] [address] Lamberto De La Cruz MD [address] [facility] [address] [place] [address] Social History Tobacco Use Types [...] Diagnosis Comments CBC W AUTO DIFFERENTIAL STAT 06/02/2021 3:50 AM [facility] COMPREHENSIVE METABOLIC PANEL STAT 06/02/2021 3:50 AM [facility] documented in this encounter Results * (ABNORMAL) COMPREHENSIVE METABOLIC PANEL (06/02/2021 3:50 AM [facility]) Glucose 126(H) 70 - 105 mg/dL 06/02/2021 9:57 AM [facility] Sodium 133(L) 136 - 145 mmol/L 06/02/2021 9:57 AM [facility] Potassium 4.9 3.5 - 5.1 mmol/L 06/02/2021 9:57 AM [facility] Chloride 95(L) 98 - 107 mmol/L 06/02/2021 9:57 AM [facility] CO2 26 23 - 31 mmol/L 06/02/2021 9:57 AM [facility] Calcium 9.4 8.4 - 10.4 mg/dL 06/02/2021 9:57 AM [facility] Anion Gap 12 8 - 18 mmol/L 06/02/2021 9:57 AM [facility] BUN 28(H) 8.9 - 20.6 mg/dL 06/02/2021 9:57 AM [facility] Creatinine 0.76 0.72 - 1.25 mg/dL 06/02/2021 9:57 AM [facility] Alkaline Phosphatase 170(H) 40 - 150 U/L 06/02/2021 9:57 AM [facility] ALT 37 0 - 61 U/L 06/02/2021 9:57 AM [facility] AST 18 5 - 34 U/L 06/02/2021 9:57 AM [facility] Protein Total 7.6 6.4 - 8.3 gm/dL 06/02/2021 9:57 AM [facility] Albumin 3.5 3.5 - 5.2 gm/dL 06/02/2021 9:57 AM [facility] Bilirubin Total <0.1(L) 0.2 - 1.2 mg/dL 06/02/2021 9:57 AM [facility] eGFR by MDRD >60 >60 mL/min/1.7 3m2 06/02/2021 9:57 AM [facility] eGFR by MDRD >60 >60 mL/min/1.7 3m2 06/02/2021 9:57 AM [facility] Blood BLOOD SPECIMEN / Unknown Venipuncture / Unknown 06/02/2021 3:50 AM [facility] 06/02/2021 8:48 AM [facility] Lamberto De La Cruz MD LAB - CHEMISTRY ORDE [facility] Organization Address City/State/ZIP Co de Phone Number [facility] [address] [place] [address] * (ABNORMAL) CBC WITH DIFFERENTIAL (06/02/2021 3:50 AM [facility]) [facility] WBC 9.6 4.4 - 10.7 x10E9/L 06/02/2021 9:26 AM [facility] WBC Corrected 06/02/2021 9:26 AM [facility] RBC 3.91 3.80 - 5.40 x10E12/L 06/02/2021 9:26 AM [facility] Hemoglobin 10.7(L) 12.0 - 17.6 gm/dL 06/02/2021 9:26 AM [facility] Hematocrit 32.6(L) 35.2 - 51.7 % 06/02/2021 9:26 AM [facility] MCV 83.4 80.7 - 98.3 fl 06/02/2021 9:26 AM [facility] MCH 27.4 26.7 - 34.0 pg 06/02/2021 9:26 AM [facility] MCHC 32.8 30.8 - 35.9 gm/dL 06/02/2021 9:26 AM [facility] Platelet Count 478(H) 153 - 416 x10E9/L 06/02/2021 9:26 AM [facility] RDW-CV 12.0(L) 12.1 - 14.9 % 06/02/2021 9:26 AM [facility] MPV 9.2(L) 9.4 - 12.9 fl 06/02/2021 9:26 AM [facility] Neutrophils % 72.3 44.0 - 73.0 % 06/02/2021 9:26 AM [facility] Lymphocytes % 13.0(L) 20.0 - 43.0 % 06/02/2021 9:26 AM [facility] Monocytes % 10.0 5.0 - 13.0 % 06/02/2021 9:26 AM [facility] Eosinophils % 4.1 0.0 - 6.0 % 06/02/2021 9:26 AM [facility] Basophils % 0.3 0.0 - 2.0 % 06/02/2021 9:26 AM [facility] Immature Granulocytes 0.3 0 - 1 % 06/02/2021 9:26 AM [facility] Neutrophil Absolute 6.92 2.01 - 7.14 x10E9/L 06/02/2021 9:26 AM [facility] Lymphocytes Absolute 1.25 1.07 - 3.94 x10E9/L 06/02/2021 9:26 AM [facility] Monocytes Absolute 0.96 0.26 - 1.07 x10E9/L 06/02/2021 9:26 AM [facility] Eosinophils Absolute 0.39 0 - 0.47 x10E9/L 06/02/2021 9:26 AM [facility] Basophils Absolute 0.03 0 - 0.08 x10E9/L 06/02/2021 9:26 AM [facility] Immature Granulocytes Absolute 0.03 0.00 - 0.06 x10E9/L 06/02/2021 9:26 AM [facility] nRBC Auto 0 /100 WBC 06/02/2021 9:26 AM [facility] Blood BLOOD SPECIMEN / Unknown Venipuncture / Unknown 06/02/2021 3:50 AM [facility] 06/02/2021 8:48 AM [facility] Lamberto De La Cruz MD LAB - HEMATOLOGY ORD ERABLES [facility] [address] [place] [address] documented in this encounter Visit Diagnoses Not on filedocumented in this encounter Care Teams Armature Tester Relationship Specialty Start Date End Date Pepe Martel MD [address] [place] [id number] PCP - General 08/14/16 documented as of this encounter
--- OUTSIDE RECORDS SUMMARY | 2024-05-23 03:20 | XMS_ITS | Encounter Summary ---
Author Organization [facility] Health Address [address] [place] [address] Care Team Providers Care Job Specification Writer Name Role Phone Pepe Martel MD Primary Care Provider [phone] Encounter Details Date Type Department Care Team (Late st Contact Info) Description 05/01/2021 Lab Requisition [facility] [address] [place] [address] Lamberto De La Cruz MD [address] [facility] [address] [place] [address] Social History Tobacco Use Types [...] Diagnosis Comments CBC W AUTO DIFFERENTIAL STAT 05/01/2021 2:25 AM [facility] COMPREHENSIVE METABOLIC PANEL STAT 05/01/2021 2:25 AM [facility] documented in this encounter Results * (ABNORMAL) CBC WITH DIFFERENTIAL (05/01/2021 2:25 AM [facility]) WBC 7.1 4.4 - 10.7 x10E9/L 05/01/2021 10:19 AM GU[facility] WBC Corrected 05/01/2021 10:19 AM [facility] RBC 3.68(L) 3.80 - 5.40 x10E12/L 05/01/2021 10:19 AM [facility] Hemoglobin 10.1(L) 12.0 - 17.6 gm/dL 05/01/2021 10:19 AM [facility] Hematocrit 33.8(L) 35.2 - 51.7 % 05/01/2021 10:19 AM [facility] MCV 91.8 80.7 - 98.3 fl 05/01/2021 10:19 AM [facility] MCH 27.4 26.7 - 34.0 pg 05/01/2021 10:19 AM [facility] MCHC 29.9(L) 30.8 - 35.9 gm/dL 05/01/2021 10:19 AM [facility] Platelet Count 407 153 - 416 x10E9/L 05/01/2021 10:19 AM [facility] RDW-CV 13.7 12.1 - 14.9 % 05/01/2021 10:19 AM [facility] MPV 10.5 9.4 - 12.9 fl 05/01/2021 10:19 AM [facility] Neutrophils % 64.8 44.0 - 73.0 % 05/01/2021 10:19 AM [facility] Lymphocytes % 19.1(L) 20.0 - 43.0 % 05/01/2021 10:19 AM [facility] Monocytes % 10.5 5.0 - 13.0 % 05/01/2021 10:19 AM [facility] Eosinophils % 5.1 0.0 - 6.0 % 05/01/2021 10:19 AM [facility] Basophils % 0.4 0.0 - 2.0 % 05/01/2021 10:19 AM [facility] Immature Granulocytes 0.1 0 - 1 % 05/01/2021 10:19 AM [facility] Neutrophil Absolute 4.58 2.01 - 7.14 x10E9/L 05/01/2021 10:19 AM [facility] Lymphocytes Absolute 1.35 1.07 - 3.94 x10E9/L 05/01/2021 10:19 AM [facility] Monocytes Absolute 0.74 0.26 - 1.07 x10E9/L 05/01/2021 10:19 AM [facility] Eosinophils Absolute 0.36 0 - 0.47 x10E9/L 05/01/2021 10:19 AM [facility] Basophils Absolute 0.03 0 - 0.08 x10E9/L 05/01/2021 10:19 AM [facility] Immature Granulocytes Absolute 0.01 0.00 - 0.06 x10E9/L 05/01/2021 10:19 AM [facility] nRBC Auto 0 /100 WBC 05/01/2021 10:19 AM [facility] Blood BLOOD SPECIMEN / Unknown Venipuncture / Unknown 05/01/2021 2:25 AM [facility] 05/01/2021 10:09 AM [facility] Lamberto De La Cruz MD LAB - HEMATOLOGY ORD ERABLES [facility] [address] [place] [address] * (ABNORMAL) COMPREHENSIVE METABOLIC PANEL (05/01/2021 2:25 AM [facility]) [facility] Glucose 120(H) 70 - 105 mg/dL 05/01/2021 10:47 AM [facility] Sodium 140 136 - 145 mmol/L 05/01/2021 10:47 AM [facility] Potassium 4.9 3.5 - 5.1 mmol/L 05/01/2021 10:47 AM [facility] Chloride 104 98 - 107 mmol/L 05/01/2021 10:47 AM [facility] CO2 23 23 - 31 mmol/L 05/01/2021 10:47 AM [facility] Calcium 9.7 8.4 - 10.4 mg/dL 05/01/2021 10:47 AM [facility] Anion Gap 13 8 - 18 mmol/L 05/01/2021 10:47 AM [facility] BUN 31(H) 8.9 - 20.6 mg/dL 05/01/2021 10:47 AM [facility] Creatinine 0.93 0.72 - 1.25 mg/dL 05/01/2021 10:47 AM [facility] Alkaline Phosphatase 79 40 - 150 U/L 05/01/2021 10:47 AM [facility] ALT 21 0 - 61 U/L 05/01/2021 10:47 AM [facility] AST 22 5 - 34 U/L 05/01/2021 10:47 AM [facility] Protein Total 7.3 6.4 - 8.3 gm/dL 05/01/2021 10:47 AM [facility] Albumin 3.5 3.5 - 5.2 gm/dL 05/01/2021 10:47 AM [facility] Bilirubin Total 0.3 0.2 - 1.2 mg/dL 05/01/2021 10:47 AM [facility] eGFR by MDRD >60 >60 mL/min/1.7 3m2 05/01/2021 10:47 AM [facility] eGFR by MDRD >60 >60 mL/min/1.7 3m2 05/01/2021 10:47 AM [facility] Blood BLOOD SPECIMEN / Unknown Venipuncture / Unknown 05/01/2021 2:25 AM [facility] 05/01/2021 10:09 AM [facility] Lamberto De La Cruz MD LAB - CHEMISTRY JOSE [facility] Organization Address City/State/ZIP Co de Phone Number [facility] [address] [place] [address] documented in this encounter Visit Diagnoses Not on filedocumented in this encounter Care Teams Job Specification Writer Relationship Specialty Start Date End Date Pepe Martel MD [address] [place] [id number] PCP - General 08/14/16 documented as of this encounter
--- OUTSIDE RECORDS SUMMARY | 2024-05-23 03:20 | XMS_ITS | Encounter Summary ---
Author Organization [facility] Address [address] [place] [address] Care Team Providers Care Hull Molder Name Role Phone Pepe Martel MD Primary Care Provider [phone] Encounter Details Date Type Department Care Team (Late st Contact Info) Description 07/18/2021 Lab Requisition [facility] [address] [place] [address] [place] [address] [place] [address] Social History Tobacco Use Types Packs/Day Years [...] Diagnosis Comments CBC W AUTO DIFFERENTIAL STAT 07/17/2021 3:19 AM [facility] documented in this encounter Results * (ABNORMAL) CBC WITH DIFFERENTIAL (07/17/2021 3:19 AM [facility]) WBC 9.8 4.4 - 10.7 x10E9/L 07/18/2021 8:30 AM [facility] WBC Corrected 07/18/2021 8:30 AM [facility] RBC 4.38 3.80 - 5.40 x10E12/L 07/18/2021 8:30 AM [facility] Hemoglobin 11.5(L) 12.0 - 17.6 gm/dL 07/18/2021 8:30 AM [facility] Hematocrit 36.0 35.2 - 51.7 % 07/18/2021 8:30 AM [facility] MCV 82.2 80.7 - 98.3 fl 07/18/2021 8:30 AM [facility] MCH 26.3(L) 26.7 - 34.0 pg 07/18/2021 8:30 AM [facility] MCHC 31.9 30.8 - 35.9 gm/dL 07/18/2021 8:30 AM [facility] Platelet Count 528(H) 153 - 416 x10E9/L 07/18/2021 8:30 AM [facility] RDW-CV 13.6 12.1 - 14.9 % 07/18/2021 8:30 AM [facility] MPV 9.5 9.4 - 12.9 fl 07/18/2021 8:30 AM [facility] Neutrophils % 67.2 44.0 - 73.0 % 07/18/2021 8:30 AM [facility] Lymphocytes % 17.3(L) 20.0 - 43.0 % 07/18/2021 8:30 AM [facility] Monocytes % 10.9 5.0 - 13.0 % 07/18/2021 8:30 AM [facility] Eosinophils % 3.5 0.0 - 6.0 % 07/18/2021 8:30 AM [facility] Basophils % 0.4 0.0 - 2.0 % 07/18/2021 8:30 AM [facility] Immature Granulocytes 0.7 0 - 1 % 07/18/2021 8:30 AM [facility] Neutrophil Absolute 6.57 2.01 - 7.14 x10E9/L 07/18/2021 8:30 AM [facility] Lymphocytes Absolute 1.69 1.07 - 3.94 x10E9/L 07/18/2021 8:30 AM [facility] Monocytes Absolute 1.07 0.26 - 1.07 x10E9/L 07/18/2021 8:30 AM [facility] Eosinophils Absolute 0.34 0 - 0.47 x10E9/L 07/18/2021 8:30 AM [facility] Basophils Absolute 0.04 0 - 0.08 x10E9/L 07/18/2021 8:30 AM [facility] Immature Granulocytes Absolute 0.07(H) 0.00 - 0.06 x10E9/L 07/18/2021 8:30 AM [facility] nRBC Auto 0 /100 WBC 07/18/2021 8:30 AM [facility] Blood BLOOD SPECIMEN / Unknown Venipuncture / Unknown 07/17/2021 3:19 AM [facility] 07/18/2021 8:20 AM [facility] Vinicio Quintanilla MD LAB - HEMATOLOGY ORD ERABLES Performing Organization Address City/State/[facility] Co de Phone Number [facility] [address] [place] [address] documented in this encounter Visit Diagnoses Not on filedocumented in this encounter Care Teams Hull Molder Relationship Specialty Start Date End Date Pepe Martel MD [address] [place] [id number] PCP - General 08/14/16 documented as of this encounter
--- OUTSIDE RECORDS SUMMARY | 2024-05-23 03:20 | XMS_ITS | Encounter Summary ---
Author Organization [facility] Address [address] [place] [address] Care Team Providers Care Researcher Name Role Phone Pepe Martel MD Primary Care Provider [phone] Encounter Details Date Type Department Care Team (Late st Contact Info) Description 06/19/2021 Lab Requisition [facility] [address] [place] [address] [place] [address] [place] [address] Social History Tobacco Use Types Packs/Day Years [...] Diagnosis Comments CBC W AUTO DIFFERENTIAL Routine 06/19/2021 4:00 AM FLORICULTURIST COMPREHENSIVE METABOLIC PANEL Routine 06/19/2021 4:00 AM FLORICULTURIST documented in this encounter Results * (ABNORMAL) COMPREHENSIVE METABOLIC PANEL (06/19/2021 4:00 AM FLORICULTURIST) Glucose 132(H) 70 - 105 mg/dL 06/19/2021 10:35 AM FLORICULTURIST [facility] Sodium 141 136 - 145 mmol/L 06/19/2021 10:35 AM FLORICULTURIST [facility] Potassium 4.3 3.5 - 5.1 mmol/L 06/19/2021 10:35 AM [facility] Chloride 107 98 - 107 mmol/L 06/19/2021 10:35 AM FLORICULTURIST [facility] CO2 27 23 - 31 mmol/L 06/19/2021 10:35 AM [facility] Calcium 10.0 8.4 - 10.4 mg/dL 06/19/2021 10:35 AM [facility] Anion Gap 7(L) 8 - 18 mmol/L 06/19/2021 10:35 AM [facility] BUN 37(H) 8.9 - 20.6 mg/dL 06/19/2021 10:35 AM [facility] Creatinine 1.07 0.72 - 1.25 mg/dL 06/19/2021 10:35 AM [facility] Alkaline Phosphatase 144 40 - 150 U/L 06/19/2021 10:35 AM [facility] ALT 47 0 - 61 U/L 06/19/2021 10:35 AM [facility] AST 22 5 - 34 U/L 06/19/2021 10:35 AM [facility] Protein Total 8.4(H) 6.4 - 8.3 gm/dL 06/19/2021 10:35 AM FLORICULTURIST [facility] Albumin 3.9 3.5 - 5.2 gm/dL 06/19/2021 10:35 AM [facility] Bilirubin Total 0.2 0.2 - 1.2 mg/dL 06/19/2021 10:35 AM [facility] eGFR by MDRD >60 >60 mL/min/1.7 3m2 06/19/2021 10:35 AM [facility] eGFR by MDRD >60 >60 mL/min/1.7 3m2 06/19/2021 10:35 AM [facility] Blood BLOOD SPECIMEN / Unknown Venipuncture / Unknown 06/19/2021 4:00 AM FLORICULTURIST 06/19/2021 10:13 AM [facility] Vinicio Quintanilla MD LAB - CHEMISTRY TYLORE MIRIAN [facility] Organization Address City/State/ZIP Co de Phone Number [facility] [address] [place] [address] * (ABNORMAL) CBC WITH DIFFERENTIAL (06/19/2021 4:00 AM [facility]) WBC 9.3 4.4 - 10.7 x10E9/L 06/19/2021 10:20 AM [facility] WBC Corrected 06/19/2021 10:20 AM [facility] RBC 4.26 3.80 - 5.40 x10E12/L 06/19/2021 10:20 AM [facility] Hemoglobin 11.5(L) 12.0 - 17.6 gm/dL 06/19/2021 10:20 AM [facility] Hematocrit 37.1 35.2 - 51.7 % 06/19/2021 10:20 AM [facility] MCV 87.1 80.7 - 98.3 fl 06/19/2021 10:20 AM [facility] MCH 27.0 26.7 - 34.0 pg 06/19/2021 10:20 AM [facility] MCHC 31.0 30.8 - 35.9 gm/dL 06/19/2021 10:20 AM [facility] Platelet Count 492(H) 153 - 416 x10E9/L 06/19/2021 10:20 AM [facility] RDW-CV 12.6 12.1 - 14.9 % 06/19/2021 10:20 AM [facility] MPV 9.8 9.4 - 12.9 fl 06/19/2021 10:20 AM [facility] Neutrophils % 67.7 44.0 - 73.0 % 06/19/2021 10:20 AM [facility] Lymphocytes % 16.9(L) 20.0 - 43.0 % 06/19/2021 10:20 AM [facility] Monocytes % 10.4 5.0 - 13.0 % 06/19/2021 10:20 AM [facility] Eosinophils % 4.2 0.0 - 6.0 % 06/19/2021 10:20 AM [facility] Basophils % 0.5 0.0 - 2.0 % 06/19/2021 10:20 AM [facility] Immature Granulocytes 0.3 0 - 1 % 06/19/2021 10:20 AM [facility] Neutrophil Absolute 6.31 2.01 - 7.14 x10E9/L 06/19/2021 10:20 AM [facility] Lymphocytes Absolute 1.58 1.07 - 3.94 x10E9/L 06/19/2021 10:20 AM [facility] Monocytes Absolute 0.97 0.26 - 1.07 x10E9/L 06/19/2021 10:20 AM [facility] Eosinophils Absolute 0.39 0 - 0.47 x10E9/L 06/19/2021 10:20 AM [facility] Basophils Absolute 0.05 0 - 0.08 x10E9/L 06/19/2021 10:20 AM [facility] Immature Granulocytes Absolute 0.03 0.00 - 0.06 x10E9/L 06/19/2021 10:20 AM [facility] nRBC Auto 0 /100 WBC 06/19/2021 10:20 AM [facility] Blood BLOOD SPECIMEN / Unknown Venipuncture / Unknown 06/19/2021 4:00 AM FLORICULTURIST 06/19/2021 10:13 AM [facility] Vinicio Quintanilla MD LAB - HEMATOLOGY ORD ERABLES [facility] [address] [place] [address] documented in this encounter Visit Diagnoses Not on filedocumented in this encounter Care Teams Researcher Relationship Specialty Start Date End Date Pepe Martel MD [address] [place] [id number] PCP - General 08/14/16 documented as of this encounter
--- OUTSIDE RECORDS SUMMARY | 2024-05-23 03:20 | XMS_ITS | Encounter Summary ---
Author Organization [facility] Address [address] [place] [address] Care Team Providers Care Quality Compliance Coordinator Name Role Phone Pepe Martel MD Primary Care Provider [phone] Encounter Details Date Type Department Care Team (Late st Contact Info) Description 06/12/2021 Lab Requisition [facility] [address] [place] [address] Lamberto De La Cruz MD [address] [facility] [address] [place] [address] Social History Tobacco Use Types [...] Diagnosis Comments CBC W AUTO DIFFERENTIAL STAT 06/12/2021 3:30 AM FITNESS ASSISTANT COMPREHENSIVE METABOLIC PANEL STAT 06/12/2021 3:30 AM FITNESS ASSISTANT documented in this encounter Results * (ABNORMAL) CBC WITH DIFFERENTIAL (06/12/2021 3:30 AM FITNESS ASSISTANT) WBC 9.4 4.4 - 10.7 x10E9/L 06/12/2021 9:40 AM FITNESS ASSISTANT [facility] WBC Corrected 06/12/2021 9:40 AM FITNESS ASSISTANT [facility] RBC 3.97 3.80 - 5.40 x10E12/L 06/12/2021 9:40 AM FITNESS ASSISTANT [facility] Hemoglobin 10.8(L) 12.0 - 17.6 gm/dL 06/12/2021 9:40 AM FITNESS ASSISTANT [facility] Hematocrit 34.2(L) 35.2 - 51.7 % 06/12/2021 9:40 AM FITNESS ASSISTANT [facility] MCV 86.1 80.7 - 98.3 fl 06/12/2021 9:40 AM FITNESS ASSISTANT [facility] MCH 27.2 26.7 - 34.0 pg 06/12/2021 9:40 AM FITNESS ASSISTANT [facility] MCHC 31.6 30.8 - 35.9 gm/dL 06/12/2021 9:40 AM FITNESS ASSISTANT [facility] Platelet Count 469(H) 153 - 416 x10E9/L 06/12/2021 9:40 AM FITNESS ASSISTANT [facility] RDW-CV 12.3 12.1 - 14.9 % 06/12/2021 9:40 AM FITNESS ASSISTANT [facility] MPV 9.5 9.4 - 12.9 fl 06/12/2021 9:40 AM FITNESS ASSISTANT [facility] Neutrophils % 71.0 44.0 - 73.0 % 06/12/2021 9:40 AM FITNESS ASSISTANT [facility] Lymphocytes % 16.0(L) 20.0 - 43.0 % 06/12/2021 9:40 AM [facility] Monocytes % 9.4 5.0 - 13.0 % 06/12/2021 9:40 AM [facility] Eosinophils % 3.1 0.0 - 6.0 % 06/12/2021 9:40 AM [facility] Basophils % 0.3 0.0 - 2.0 % 06/12/2021 9:40 AM [facility] Immature Granulocytes 0.2 0 - 1 % 06/12/2021 9:40 AM [facility] Neutrophil Absolute 6.68 2.01 - 7.14 x10E9/L 06/12/2021 9:40 AM [facility] Lymphocytes Absolute 1.51 1.07 - 3.94 x10E9/L 06/12/2021 9:40 AM [facility] Monocytes Absolute 0.88 0.26 - 1.07 x10E9/L 06/12/2021 9:40 AM [facility] Eosinophils Absolute 0.29 0 - 0.47 x10E9/L 06/12/2021 9:40 AM [facility] Basophils Absolute 0.03 0 - 0.08 x10E9/L 06/12/2021 9:40 AM [facility] Immature Granulocytes Absolute 0.02 0.00 - 0.06 x10E9/L 06/12/2021 9:40 AM [facility] nRBC Auto 0 /100 WBC 06/12/2021 9:40 AM [facility] Blood BLOOD SPECIMEN / Unknown Venipuncture / Unknown 06/12/2021 3:30 AM FITNESS ASSISTANT 06/12/2021 8:38 AM [facility] Lamberto De La Cruz MD LAB - HEMATOLOGY ORD ERABLES [facility] [address] [place] [address] * (ABNORMAL) COMPREHENSIVE METABOLIC PANEL (06/12/2021 3:30 AM [facility]) [facility] Glucose 126(H) 70 - 105 mg/dL 06/12/2021 10:03 AM [facility] Sodium 139 136 - 145 mmol/L 06/12/2021 10:03 AM [facility] Potassium 4.7 3.5 - 5.1 mmol/L 06/12/2021 10:03 AM [facility] Chloride 103 98 - 107 mmol/L 06/12/2021 10:03 AM [facility] CO2 23 23 - 31 mmol/L 06/12/2021 10:03 AM [facility] Calcium 9.7 8.4 - 10.4 mg/dL 06/12/2021 10:03 AM [facility] Anion Gap 13 8 - 18 mmol/L 06/12/2021 10:03 AM [facility] BUN 35(H) 8.9 - 20.6 mg/dL 06/12/2021 10:03 AM [facility] Creatinine 0.94 0.72 - 1.25 mg/dL 06/12/2021 10:03 AM [facility] Alkaline Phosphatase 155(H) 40 - 150 U/L 06/12/2021 10:03 AM [facility] ALT 40 0 - 61 U/L 06/12/2021 10:03 AM [facility] AST 23 5 - 34 U/L 06/12/2021 10:03 AM [facility] Protein Total 8.1 6.4 - 8.3 gm/dL 06/12/2021 10:03 AM [facility] Albumin 3.5 3.5 - 5.2 gm/dL 06/12/2021 10:03 AM [facility] Bilirubin Total 0.2 0.2 - 1.2 mg/dL 06/12/2021 10:03 AM [facility] eGFR by MDRD >60 >60 mL/min/1.7 3m2 06/12/2021 10:03 AM [facility] eGFR by MDRD >60 >60 mL/min/1.7 3m2 06/12/2021 10:03 AM [facility] Blood BLOOD SPECIMEN / Unknown Venipuncture / Unknown 06/12/2021 3:30 AM FITNESS ASSISTANT 06/12/2021 8:38 AM [facility] Lamberto De La Cruz MD LAB - CHEMISTRY JOSE ENRIQUE VELA [facility] Organization Address City/State/ZIP Co de Phone Number [facility] [address] [place] [address] documented in this encounter Visit Diagnoses Not on filedocumented in this encounter Care Teams Quality Compliance Coordinator Relationship Specialty Start Date End Date Pepe Martel MD [address] [place] [id number] PCP - General 08/14/16 documented as of this encounter
--- OUTSIDE RECORDS SUMMARY | 2024-05-23 03:21 | XMS_ITS | Encounter Summary ---
Author Organization [facility] Address [address] [place] [address] Care Team Providers Care Vamp Wetter Name Role Phone Pepe Martel MD Primary Care Provider [phone] Encounter Details Date Type Department Care Team (Late st Contact Info) Description 04/10/2021 Lab Requisition [facility] [address] [place] [address] Lamberto De La Cruz MD [address] [facility] [address] [place] [address] Social History Tobacco Use Types [...] Diagnosis Comments CBC W AUTO DIFFERENTIAL STAT 04/10/2021 3:30 AM SCOURING MACHINE OPERATOR COMPREHENSIVE METABOLIC PANEL STAT 04/10/2021 3:30 AM SCOURING MACHINE OPERATOR documented in this encounter Results * (ABNORMAL) CBC WITH DIFFERENTIAL (04/10/2021 3:30 AM SCOURING MACHINE OPERATOR) WBC 6.3 4.4 - 10.7 x10E9/L 04/10/2021 11:34 AM SCOURING MACHINE OPERATOR [facility] WBC Corrected 04/10/2021 11:34 AM SCOURING MACHINE OPERATOR [facility] RBC 3.77(L) 3.80 - 5.40 x10E12/L 04/10/2021 11:34 AM SCOURING MACHINE OPERATOR [facility] Hemoglobin 10.4(L) 12.0 - 17.6 gm/dL 04/10/2021 11:34 AM SCOURING MACHINE OPERATOR [facility] Hematocrit 33.7(L) 35.2 - 51.7 % 04/10/2021 11:34 AM SCOURING MACHINE OPERATOR [facility] MCV 89.4 80.7 - 98.3 fl 04/10/2021 11:34 AM SCOURING MACHINE OPERATOR [facility] MCH 27.6 26.7 - 34.0 pg 04/10/2021 11:34 AM SCOURING MACHINE OPERATOR [facility] MCHC 30.9 30.8 - 35.9 gm/dL 04/10/2021 11:34 AM SCOURING MACHINE OPERATOR [facility] Platelet Count 475(H) 153 - 416 x10E9/L 04/10/2021 11:34 AM SCOURING MACHINE OPERATOR [facility] RDW-CV 14.8 12.1 - 14.9 % 04/10/2021 11:34 AM SCOURING MACHINE OPERATOR [facility] MPV 10.1 9.4 - 12.9 fl 04/10/2021 11:34 AM SCOURING MACHINE OPERATOR [facility] Neutrophils % 61.3 44.0 - 73.0 % 04/10/2021 11:34 AM SCOURING MACHINE OPERATOR [facility] Lymphocytes % 20.3 20.0 - 43.0 % 04/10/2021 11:[address] [facility] Monocytes % 10.2 5.0 - 13.0 % 04/10/2021 11:[address] [facility] Eosinophils % 7.2(H) 0.0 - 6.0 % 04/10/2021 11:[address] [facility] Basophils % 0.8 0.0 - 2.0 % 04/10/2021 11:[address] [facility] Immature Granulocytes 0.2 0 - 1 % 04/10/2021 11:[address] [facility] Neutrophil Absolute 3.85 2.01 - 7.14 x10E9/L 04/10/2021 11:[address] [facility] Lymphocytes Absolute 1.27 1.07 - 3.94 x10E9/L 04/10/2021 11:[address] [facility] Monocytes Absolute 0.64 0.26 - 1.07 x10E9/L 04/10/2021 11:[address] [facility] Eosinophils Absolute 0.45 0 - 0.47 x10E9/L 04/10/2021 11:[address] [facility] Basophils Absolute 0.05 0 - 0.08 x10E9/L 04/10/2021 11:[address] [facility] Immature Granulocytes Absolute 0.01 0.00 - 0.06 x10E9/L 04/10/2021 11:[address] [facility] nRBC Auto 0 /100 WBC 04/10/2021 11:[address] [facility] Blood BLOOD SPECIMEN / Unknown Venipuncture / Unknown 04/10/2021 3:30 AM SCOURING MACHINE OPERATOR 04/10/2021 10:12 AM [facility] Lamberto De La Cruz MD LAB - HEMATOLOGY ORD ERABLES [facility] [address] [place] [address] * (ABNORMAL) COMPREHENSIVE METABOLIC PANEL (04/10/2021 3:30 AM [facility]) [facility] Glucose 124(H) 70 - 105 mg/dL 04/10/2021 11:[address] [facility] Sodium 137 136 - 145 mmol/L 04/10/2021 11:[address] [facility] Potassium 4.8 3.5 - 5.1 mmol/L 04/10/2021 11:[address] [facility] Chloride 102 98 - 107 mmol/L 04/10/2021 11:[address] [facility] CO2 22(L) 23 - 31 mmol/L 04/10/2021 11:[address] [facility] Calcium 9.1 8.4 - 10.4 mg/dL 04/10/2021 11:[address] [facility] Anion Gap 13 8 - 18 mmol/L 04/10/2021 11:[address] [facility] BUN 22(H) 8.9 - 20.6 mg/dL 04/10/2021 11:[address] [facility] Creatinine 0.80 0.72 - 1.25 mg/dL 04/10/2021 11:[address] [facility] Alkaline Phosphatase 105 40 - 150 U/L 04/10/2021 11:[address] [facility] ALT 26 0 - 61 U/L 04/10/2021 11:[address] [facility] AST 29 5 - 34 U/L 04/10/2021 11:[address] [facility] Protein Total 7.4 6.4 - 8.3 gm/dL 04/10/2021 11:[address] [facility] Albumin 3.3(L) 3.5 - 5.2 gm/dL 04/10/2021 11:[address] [facility] Bilirubin Total 0.4 0.2 - 1.2 mg/dL 04/10/2021 11:[address] [facility] eGFR by MDRD >60 >60 mL/min/1.7 3m2 04/10/2021 11:[address] [facility] eGFR by MDRD >60 >60 mL/min/1.7 3m2 04/10/2021 11:[address] [facility] Blood BLOOD SPECIMEN / Unknown Venipuncture / Unknown 04/10/2021 3:30 AM SCOURING MACHINE OPERATOR 04/10/2021 10:12 AM [facility] Lamberto De La Cruz MD LAB - CHEMISTRY JOSE ENRIQUE VELA [facility] Organization Address City/State/ZIP Co de Phone Number [facility] [address] [place] [address] documented in this encounter Visit Diagnoses Not on filedocumented in this encounter Care Teams Vamp Wetter Relationship Specialty Start Date End Date Pepe Martel MD [address] [place] [phone] PCP - General 08/14/16 documented as of this encounter
--- OUTSIDE RECORDS SUMMARY | 2024-05-23 03:21 | XMS_ITS | Encounter Summary ---
Author Organization [facility] Address [address] [facility] [place] [address] Care Team Providers Care Internal Grinder Set Up Operator Name Role Phone Pepe Martel MD Primary Care Provider [phone] Encounter Details Date Type Department Care Team (Late st Contact Info) Description 03/13/2021 Lab Requisition [facility] [address] [place] [address] Andrés Ferro MD [address] [place] [address] DR VARNER [address] [place] [address] Social History Tobacco Use Types Packs/Day Years [...] Procedure Name Priority Date/Time Associated Diagnosis Comments PTT STAT 03/13/2021 4:00 AM CDT PT-INR STAT 03/13/2021 4:00 AM CDT CBC W AUTO DIFFERENTIAL STAT 03/13/2021 4:00 AM CDT COMPREHENSIVE METABOLIC PANEL STAT 03/13/2021 4:00 AM CDT documented in this encounter Results * (ABNORMAL) PTT (03/13/2021 4:00 AM CDT) PTT 42.2(H) 23.0 - 38.4 sec 03/13/2021 3:32 PM CDT [facility] Blood BLOOD SPECIMEN / Unknown Venipuncture / Unknown 03/13/2021 4:00 AM CDT 03/13/2021 2:55 PM CDT Narrative [facility] - 03/13/2021 3:32 PM CDT Heparin Therapeutic Range for PTT: ??69.0 - 110.0 seconds. Andrés Ferro MD LAB - COAGULATION ORDERABLES [facility] [address] [place] [address] * PT-INR (03/13/2021 4:00 AM CDT) PT 14.4 12.1 - 14.8 sec 03/13/2021 3:31 PM CDT [facility] INR 1.1 0.9 - 1.1 03/13/2021 3:31 PM CDT [facility] Blood BLOOD SPECIMEN / Unknown Venipuncture / Unknown 03/13/2021 4:00 AM CDT 03/13/2021 2:55 PM CDT Narrative [facility] - 03/13/2021 3:31 PM CDT Conventional Warfarin Anticoagulant Therapy: INR Reference Range: ??2.0-3.0 Intensive Warfarin Anticoagulant Therapy: INR Reference Range: ? 2.5-3.5 Andrés Ferro MD LAB - COAGULATION ORDERABLES [facility] [address] [place] [address] * (ABNORMAL) CBC WITH DIFFERENTIAL (03/13/2021 4:00 AM CDT) WBC 19.7(H) 4.4 - 10.7 x10E9/L 03/13/2021 3:24 PM CDT [facility] WBC Corrected 03/13/2021 3:24 PM CDT [facility] RBC 3.53(L) 3.80 - 5.40 x10E12/L 03/13/2021 3:24 PM CDT [facility] Hemoglobin 9.6(L) 12.0 - 17.6 gm/dL 03/13/2021 3:24 PM CDT [facility] Hematocrit 32.2(L) 35.2 - 51.7 % 03/13/2021 3:24 PM CDT [facility] MCV 91.2 80.7 - 98.3 fl 03/13/2021 3:24 PM CDT [facility] MCH 27.2 26.7 - 34.0 pg 03/13/2021 3:24 PM CDT [facility] MCHC 29.8(L) 30.8 - 35.9 gm/dL 03/13/2021 3:24 PM CDT [facility] Platelet Count 546(H) 153 - 416 x10E9/L 03/13/2021 3:24 PM CDT [facility] RDW-CV 13.9 12.1 - 14.9 % 03/13/2021 3:24 PM CDT [facility] MPV 11.5 9.4 - 12.9 fl 03/13/2021 3:24 PM CDT [facility] Neutrophils % 78.6(H) 44.0 - 73.0 % 03/13/2021 3:24 PM CDT [facility] Lymphocytes % 8.1(L) 20.0 - 43.0 % 03/13/2021 3:24 PM CDT [facility] Monocytes % 7.3 5.0 - 13.0 % 03/13/2021 3:24 PM CDT [facility] Eosinophils % 3.8 0.0 - 6.0 % 03/13/2021 3:24 PM CDT [facility] Basophils % 0.4 0.0 - 2.0 % 03/13/2021 3:24 PM CDT [facility] Immature Granulocytes 1.8(H) 0 - 1 % 03/13/2021 3:24 PM CDT [facility] Neutrophil Absolute 15.46(H) 2.01 - 7.14 x10E9/L 03/13/2021 3:24 PM CDT [facility] Lymphocytes Absolute 1.60 1.07 - 3.94 x10E9/L 03/13/2021 3:24 PM CDT [facility] Monocytes Absolute 1.44(H) 0.26 - 1.07 x10E9/L 03/13/2021 3:24 PM CDT [facility] Eosinophils Absolute 0.75(H) 0 - 0.47 x10E9/L 03/13/2021 3:24 PM CDT [facility] Basophils Absolute 0.07 0 - 0.08 x10E9/L 03/13/2021 3:24 PM CDT [facility] Immature Granulocytes Absolute 0.35(H) 0.00 - 0.06 x10E9/L 03/13/2021 3:24 PM CDT [facility] nRBC Auto 0 /100 WBC 03/13/2021 3:24 PM CDT [facility] Blood BLOOD SPECIMEN / Unknown Venipuncture / Unknown 03/13/2021 4:00 AM CDT 03/13/2021 2:55 PM CDT Andrés Ferro MD LAB - HEMATOLOGY O RDERABLES [facility] [address] [place] [address] * (ABNORMAL) COMPREHENSIVE METABOLIC PANEL (03/13/2021 4:00 AM CDT) [facility] Glucose 104 70 - 105 mg/dL 03/13/2021 3:44 PM CDT [facility] Sodium 141 136 - 145 mmol/L 03/13/2021 3:44 PM CDT [facility] Potassium 5.4(H) 3.5 - 5.1 mmol/L 03/13/2021 3:44 PM CDT [facility] Chloride 106 98 - 107 mmol/L 03/13/2021 3:44 PM CDT [facility] CO2 18(L) 23 - 31 mmol/L 03/13/2021 3:44 PM CDT [facility] Calcium 8.7 8.4 - 10.4 mg/dL 03/13/2021 3:44 PM CDT [facility] Anion Gap 17 8 - 18 mmol/L 03/13/2021 3:44 PM CDT [facility] BUN 37(H) 8.9 - 20.6 mg/dL 03/13/2021 3:44 PM CDT [facility] Creatinine 1.43(H) 0.72 - 1.25 mg/dL 03/13/2021 3:44 PM CDT [facility] Alkaline Phosphatase 301(H) 40 - 150 U/L 03/13/2021 3:44 PM CDT [facility] ALT 43 0 - 61 U/L 03/13/2021 3:44 PM CDT [facility] AST 43(H) 5 - 34 U/L 03/13/2021 3:44 PM CDT [facility] Protein Total 7.8 6.4 - 8.3 gm/dL 03/13/2021 3:44 PM CDT [facility] Albumin 2.9(L) 3.5 - 5.2 gm/dL 03/13/2021 3:44 PM CDT [facility] Bilirubin Total 0.3 0.2 - 1.2 mg/dL 03/13/2021 3:44 PM CDT [facility] eGFR by MDRD 56(L) >60 mL/min/1.7 3m2 03/13/2021 3:44 PM CDT [facility] eGFR by MDRD >60 >60 mL/min/1.7 3m2 03/13/2021 3:44 PM CDT [facility] Blood BLOOD SPECIMEN / Unknown Venipuncture / Unknown 03/13/2021 4:00 AM CDT 03/13/2021 2:55 PM CDT Andrés Ferro MD LAB - CHEMISTRY OR DERABLES Performing Organization Address City/State/[facility] Co de Phone Number [facility] [address] [place] [address] documented in this encounter Visit Diagnoses Not on filedocumented in this encounter Care Teams Internal Grinder Set Up Operator Relationship Specialty Start Date End Date Pepe Martel MD [address] [place] [id number] PCP - General 08/14/16 documented as of this encounter
--- OUTSIDE RECORDS SUMMARY | 2024-05-23 03:21 | XMS_ITS | Encounter Summary ---
Author Organization [facility] Address [address] [facility] [place] [address] Care Team Providers Care Waterworks Employee Name Role Phone Pepe Martel MD Primary Care Provider [phone] Encounter Details Date Type Department Care Team (Late st Contact Info) Description 03/17/2021 Lab Requisition [facility] [address] [place] [address] Andrés Ferro MD [address] [place] [address] [address] VARNER [address] [place] [address] Social History Tobacco Use Types Packs/Day Years [...] Diagnosis Comments CBC W AUTO DIFFERENTIAL STAT 03/17/2021 3:15 AM CDT COMPREHENSIVE METABOLIC PANEL STAT 03/17/2021 3:15 AM CDT documented in this encounter Results * (ABNORMAL) CBC WITH DIFFERENTIAL (03/17/2021 3:15 AM CDT) WBC 13.9(H) 4.4 - 10.7 x10E9/L 03/17/2021 10:38 AM CDT [facility] WBC Corrected 03/17/2021 10:38 AM CDT [facility] RBC 3.56(L) 3.80 - 5.40 x10E12/L 03/17/2021 10:38 AM CDT [facility] Hemoglobin 9.7(L) 12.0 - 17.6 gm/dL 03/17/2021 10:38 AM CDT [facility] Hematocrit 31.8(L) 35.2 - 51.7 % 03/17/2021 10:38 AM CDT [facility] MCV 89.3 80.7 - 98.3 fl 03/17/2021 10:38 AM CDT [facility] MCH 27.2 26.7 - 34.0 pg 03/17/2021 10:38 AM CDT [facility] MCHC 30.5(L) 30.8 - 35.9 gm/dL 03/17/2021 10:38 AM CDT [facility] Platelet Count 480(H) 153 - 416 x10E9/L 03/17/2021 10:38 AM CDT [facility] RDW-CV 13.9 12.1 - 14.9 % 03/17/2021 10:38 AM CDT [facility] MPV 10.5 9.4 - 12.9 fl 03/17/2021 10:38 AM CDT [facility] Neutrophils % 74.2(H) 44.0 - 73.0 % 03/17/2021 10:38 AM CDT [facility] Lymphocytes % 10.7(L) 20.0 - 43.0 % 03/17/2021 10:38 AM CDT [facility] Monocytes % 9.7 5.0 - 13.0 % 03/17/2021 10:38 AM CDT [facility] Eosinophils % 4.2 0.0 - 6.0 % 03/17/2021 10:38 AM CDT [facility] Basophils % 0.4 0.0 - 2.0 % 03/17/2021 10:38 AM CDT [facility] Immature Granulocytes 0.8 0 - 1 % 03/17/2021 10:38 AM CDT [facility] Neutrophil Absolute 10.31(H) 2.01 - 7.14 x10E9/L 03/17/2021 10:38 AM CDT [facility] Lymphocytes Absolute 1.49 1.07 - 3.94 x10E9/L 03/17/2021 10:38 AM CDT [facility] Monocytes Absolute 1.35(H) 0.26 - 1.07 x10E9/L 03/17/2021 10:38 AM CDT [facility] Eosinophils Absolute 0.58(H) 0 - 0.47 x10E9/L 03/17/2021 10:38 AM CDT [facility] Basophils Absolute 0.05 0 - 0.08 x10E9/L 03/17/2021 10:38 AM CDT [facility] Immature Granulocytes Absolute 0.11(H) 0.00 - 0.06 x10E9/L 03/17/2021 10:38 AM CDT [facility] nRBC Auto 0 /100 WBC 03/17/2021 10:38 AM CDT [facility] Blood BLOOD SPECIMEN / Unknown Venipuncture / Unknown 03/17/2021 3:15 AM CDT 03/17/2021 10:09 AM CDT Andrés Ferro MD LAB - HEMATOLOGY O RDERABLES [facility] [address] [place] [address] * (ABNORMAL) COMPREHENSIVE METABOLIC PANEL (03/17/2021 3:15 AM CDT) [facility] Glucose 144(H) 70 - 105 mg/dL 03/17/2021 11:05 AM [facility] Sodium 136 136 - 145 mmol/L 03/17/2021 11:05 AM [facility] Potassium 4.7 3.5 - 5.1 mmol/L 03/17/2021 11:05 AM [facility] Chloride 103 98 - 107 mmol/L 03/17/2021 11:05 AM [facility] CO2 20(L) 23 - 31 mmol/L 03/17/2021 11:05 AM [facility] Calcium 8.4 8.4 - 10.4 mg/dL 03/17/2021 11:05 AM [facility] Anion Gap 13 8 - 18 mmol/L 03/17/2021 11:05 AM [facility] BUN 30(H) 8.9 - 20.6 mg/dL 03/17/2021 11:05 AM [facility] Creatinine 1.30(H) 0.72 - 1.25 mg/dL 03/17/2021 11:05 AM [facility] Alkaline Phosphatase 210(H) 40 - 150 U/L 03/17/2021 11:05 AM [facility] ALT 31 0 - 61 U/L 03/17/2021 11:05 AM [facility] AST 33 5 - 34 U/L 03/17/2021 11:05 AM [facility] Protein Total 7.5 6.4 - 8.3 gm/dL 03/17/2021 11:05 AM [facility] Albumin 2.7(L) 3.5 - 5.2 gm/dL 03/17/2021 11:05 AM [facility] Bilirubin Total 0.3 0.2 - 1.2 mg/dL 03/17/2021 11:05 AM [facility] eGFR by MDRD >60 >60 mL/min/1.7 3m2 03/17/2021 11:05 AM [facility] eGFR by MDRD >60 >60 mL/min/1.7 3m2 03/17/2021 11:05 AM [facility] Blood BLOOD SPECIMEN / Unknown Venipuncture / Unknown 03/17/2021 3:15 AM CDT 03/17/2021 10:09 AM CDT Andrés Ferro MD LAB - CHEMISTRY OR DERABLES [facility] [address] [place] [address] documented in this encounter Visit Diagnoses Not on filedocumented in this encounter Care Teams Waterworks Employee Relationship Specialty Start Date End Date Pepe Martel MD [address] [place] [id number] PCP - General 08/14/16 documented as of this encounter
--- OUTSIDE RECORDS SUMMARY | 2024-05-23 03:21 | XMS_ITS | Encounter Summary ---
Author Organization [facility] Address [address] [facility] [place] [address] Care Team Providers Care Hydrogen Cell Tender Name Role Phone Pepe Martel MD Primary Care Provider [phone] Encounter Details Date Type Department Care Team (Late st Contact Info) Description 04/07/2021 Lab Requisition [facility] [address] [place] [address] Lamberto De La Cruz MD [address] [facility] [address] [place] [address] Social History Tobacco Use Types [...] Diagnosis Comments CBC W AUTO DIFFERENTIAL STAT 04/07/2021 3:00 AM COUNSELLING PSYCHOLOGIST COMPREHENSIVE METABOLIC PANEL STAT 04/07/2021 3:00 AM COUNSELLING PSYCHOLOGIST VANCOMYCIN LEVEL TROUGH STAT 04/07/2021 3:00 AM COUNSELLING PSYCHOLOGIST documented in this encounter Results * VANCOMYCIN LEVEL TROUGH (04/07/2021 3:00 AM COUNSELLING PSYCHOLOGIST) Pathologist [facility] Vancomycin Trough 11.5 10.0 - 20.0 ug/mL 04/07/2021 9:29 AM COUNSELLING PSYCHOLOGIST [facility] Blood BLOOD SPECIMEN / Unknown Venipuncture / Unknown 04/07/2021 3:00 AM COUNSELLING PSYCHOLOGIST 04/07/2021 8:53 AM COUNSELLING PSYCHOLOGIST Lamberto De La Cruz MD LAB - CHEMISTRY JOSE ENRIQUE VELA [facility] Organization Address City/State/[facility] Co de Phone Number [facility] [address] [place] [address] * (ABNORMAL) CBC WITH DIFFERENTIAL (04/07/2021 3:00 AM COUNSELLING PSYCHOLOGIST) [facility] WBC 6.8 4.4 - 10.7 x10E9/L 04/07/2021 9:20 AM COUNSELLING PSYCHOLOGIST [facility] WBC Corrected 04/07/2021 9:20 AM COUNSELLING PSYCHOLOGIST [facility] RBC 3.30(L) 3.80 - 5.40 x10E12/L 04/07/2021 9:20 AM COUNSELLING PSYCHOLOGIST [facility] Hemoglobin 9.3(L) 12.0 - 17.6 gm/dL 04/07/2021 9:20 AM COUNSELLING PSYCHOLOGIST [facility] Hematocrit 30.2(L) 35.2 - 51.7 % 04/07/2021 9:20 AM COUNSELLING PSYCHOLOGIST [facility] MCV 91.5 80.7 - 98.3 fl 04/07/2021 9:20 AM COUNSELLING PSYCHOLOGIST [facility] MCH 28.2 26.7 - 34.0 pg 04/07/2021 9:[address] [facility] MCHC 30.8 30.8 - 35.9 gm/dL 04/07/2021 9:[address] [facility] Platelet Count 399 153 - 416 x10E9/L 04/07/2021 9:[address] [facility] RDW-CV 15.2(H) 12.1 - 14.9 % 04/07/2021 9:[address] [facility] MPV 10.0 9.4 - 12.9 fl 04/07/2021 9:[address] [facility] Neutrophils % 62.6 44.0 - 73.0 % 04/07/2021 9:[address] [facility] Lymphocytes % 16.3(L) 20.0 - 43.0 % 04/07/2021 9:[address] [facility] Monocytes % 12.5 5.0 - 13.0 % 04/07/2021 9:[address] [facility] Eosinophils % 7.9(H) 0.0 - 6.0 % 04/07/2021 9:[address] [facility] Basophils % 0.6 0.0 - 2.0 % 04/07/2021 9:[address] [facility] Immature Granulocytes 0.1 0 - 1 % 04/07/2021 9:[address] [facility] Neutrophil Absolute 4.25 2.01 - 7.14 x10E9/L 04/07/2021 9:[address] [facility] Lymphocytes Absolute 1.11 1.07 - 3.94 x10E9/L 04/07/2021 9:[address] [facility] Monocytes Absolute 0.85 0.26 - 1.07 x10E9/L 04/07/2021 9:[address] [facility] Eosinophils Absolute 0.54(H) 0 - 0.47 x10E9/L 04/07/2021 9:[address] [facility] Basophils Absolute 0.04 0 - 0.08 x10E9/L 04/07/2021 9:[address] [facility] Immature Granulocytes Absolute 0.01 0.00 - 0.06 x10E9/L 04/07/2021 9:[address] [facility] nRBC Auto 0 /100 WBC 04/07/2021 9:[address] [facility] Blood BLOOD SPECIMEN / Unknown Venipuncture / Unknown 04/07/2021 3:00 AM COUNSELLING PSYCHOLOGIST 04/07/2021 8:51 AM [facility] Lamberto De La Cruz MD LAB - HEMATOLOGY ORD ERABLES [facility] [address] [place], [place] [id number] * (ABNORMAL) COMPREHENSIVE METABOLIC PANEL (04/07/2021 3:00 AM COUNSELLING PSYCHOLOGIST) Glucose 100 70 - 105 mg/dL 04/07/2021 9:[address] [facility] Sodium 136 136 - 145 mmol/L 04/07/2021 9:[address] [facility] Potassium 4.5 3.5 - 5.1 mmol/L 04/07/2021 9:[address] [facility] Chloride 104 98 - 107 mmol/L 04/07/2021 9:[address] [facility] CO2 20(L) 23 - 31 mmol/L 04/07/2021 9:[address] [facility] Calcium 8.8 8.4 - 10.4 mg/dL 04/07/2021 9:[address] [facility] Anion Gap 12 8 - 18 mmol/L 04/07/2021 9:[address] [facility] BUN 23(H) 8.9 - 20.6 mg/dL 04/07/2021 9:[address] [facility] Creatinine 0.76 0.72 - 1.25 mg/dL 04/07/2021 9:[address] [facility] Alkaline Phosphatase 95 40 - 150 U/L 04/07/2021 9:[address] [facility] ALT 18 0 - 61 U/L 04/07/2021 9:[address] [facility] AST 22 5 - 34 U/L 04/07/2021 9:[address] [facility] Protein Total 7.0 6.4 - 8.3 gm/dL 04/07/2021 9:[address] [facility] Albumin 3.1(L) 3.5 - 5.2 gm/dL 04/07/2021 9:32 AM COUNSELLING PSYCHOLOGIST [facility] Bilirubin Total 0.2 0.2 - 1.2 mg/dL 04/07/2021 9:32 AM COUNSELLING PSYCHOLOGIST [facility] eGFR by MDRD >60 >60 mL/min/1.7 3m2 04/07/2021 9:32 AM COUNSELLING PSYCHOLOGIST [facility] eGFR by MDRD >60 >60 mL/min/1.7 3m2 04/07/2021 9:32 AM COUNSELLING PSYCHOLOGIST [facility] Blood BLOOD SPECIMEN / Unknown Venipuncture / Unknown 04/07/2021 3:00 AM COUNSELLING PSYCHOLOGIST 04/07/2021 8:51 AM COUNSELLING PSYCHOLOGIST Lamberto De La Cruz MD LAB - CHEMISTRY JOSE ENRIQUE VELA [facility] Organization Address City/State/[facility] Co de Phone Number [facility] [address] [place], [place] [phone] documented in this encounter Visit Diagnoses Not on filedocumented in this encounter Care Teams Hydrogen Cell Tender Relationship Specialty Start Date End Date Pepe Martel MD [address] [place] [address] [address] [place] [address] PCP - General 08/14/16 documented as of this encounter
--- OUTSIDE RECORDS SUMMARY | 2024-05-23 03:21 | XMS_ITS | Encounter Summary ---
Author Organization [facility] Address [address] [facility] [place] [address] Care Team Providers Care Temporary Receptionist Name Role Phone Pepe Martel MD Primary Care Provider [phone] Encounter Details Date Type Department Care Team (Late st Contact Info) Description 03/20/2021 Lab Requisition [facility] [address] [place] [address] Andrés Ferro MD [address] [place] [address] [address] VARNER [address] [place] [id number] Social History Tobacco Use Types Packs/Day Years [...] Diagnosis Comments CBC W AUTO DIFFERENTIAL STAT 03/20/2021 3:40 AM CDT COMPREHENSIVE METABOLIC PANEL STAT 03/20/2021 3:40 AM CDT documented in this encounter Results * (ABNORMAL) CBC WITH DIFFERENTIAL (03/20/2021 3:40 AM CDT) WBC 9.8 4.4 - 10.7 x10E9/L 03/20/2021 2:12 PM CDT [facility] WBC Corrected 03/20/2021 2:12 PM CDT [facility] RBC 3.78(L) 3.80 - 5.40 x10E12/L 03/20/2021 2:12 PM CDT [facility] Hemoglobin 10.3(L) 12.0 - 17.6 gm/dL 03/20/2021 2:12 PM CDT [facility] Hematocrit 33.8(L) 35.2 - 51.7 % 03/20/2021 2:12 PM CDT [facility] MCV 89.4 80.7 - 98.3 fl 03/20/2021 2:12 PM CDT [facility] MCH 27.2 26.7 - 34.0 pg 03/20/2021 2:12 PM CDT [facility] MCHC 30.5(L) 30.8 - 35.9 gm/dL 03/20/2021 2:12 PM CDT [facility] Platelet Count 546(H) 153 - 416 x10E9/L 03/20/2021 2:12 PM CDT [facility] RDW-CV 13.7 12.1 - 14.9 % 03/20/2021 2:12 PM CDT [facility] MPV 10.0 9.4 - 12.9 fl 03/20/2021 2:12 PM CDT [facility] Neutrophils % 71.0 44.0 - 73.0 % 03/20/2021 2:12 PM CDT [facility] Lymphocytes % 15.4(L) 20.0 - 43.0 % 03/20/2021 2:12 PM CDT [facility] Monocytes % 8.2 5.0 - 13.0 % 03/20/2021 2:12 PM CDT [facility] Eosinophils % 4.1 0.0 - 6.0 % 03/20/2021 2:12 PM CDT [facility] Basophils % 0.7 0.0 - 2.0 % 03/20/2021 2:12 PM CDT [facility] Immature Granulocytes 0.6 0 - 1 % 03/20/2021 2:12 PM CDT [facility] Neutrophil Absolute 6.97 2.01 - 7.14 x10E9/L 03/20/2021 2:12 PM CDT [facility] Lymphocytes Absolute 1.51 1.07 - 3.94 x10E9/L 03/20/2021 2:12 PM CDT [facility] Monocytes Absolute 0.81 0.26 - 1.07 x10E9/L 03/20/2021 2:12 PM CDT [facility] Eosinophils Absolute 0.40 0 - 0.47 x10E9/L 03/20/2021 2:12 PM CDT [facility] Basophils Absolute 0.07 0 - 0.08 x10E9/L 03/20/2021 2:12 PM CDT [facility] Immature Granulocytes Absolute 0.06 0.00 - 0.06 x10E9/L 03/20/2021 2:12 PM CDT [facility] nRBC Auto 0 /100 WBC 03/20/2021 2:12 PM CDT [facility] Blood BLOOD SPECIMEN / Unknown Venipuncture / Unknown 03/20/2021 3:40 AM CDT 03/20/2021 1:25 PM CDT Andrés Ferro MD LAB - HEMATOLOGY O RDERABLES [facility] [address] [place] [address] * (ABNORMAL) COMPREHENSIVE METABOLIC PANEL (03/20/2021 3:40 AM CDT) [facility] Glucose 120(H) 70 - 105 mg/dL 03/20/2021 2:47 PM CDT [facility] Sodium 136 136 - 145 mmol/L 03/20/2021 2:47 PM CDT [facility] Potassium 5.6(H) 3.5 - 5.1 mmol/L 03/20/2021 2:47 PM CDT [facility] Chloride 100 98 - 107 mmol/L 03/20/2021 2:47 PM CDT [facility] CO2 22(L) 23 - 31 mmol/L 03/20/2021 2:47 PM CDT [facility] Calcium 8.5 8.4 - 10.4 mg/dL 03/20/2021 2:47 PM CDT [facility] Anion Gap 14 8 - 18 mmol/L 03/20/2021 2:47 PM CDT [facility] BUN 31(H) 8.9 - 20.6 mg/dL 03/20/2021 2:47 PM CDT [facility] Creatinine 1.29(H) 0.72 - 1.25 mg/dL 03/20/2021 2:47 PM CDT [facility] Alkaline Phosphatase 200(H) 40 - 150 U/L 03/20/2021 2:47 PM CDT [facility] ALT 37 0 - 61 U/L 03/20/2021 2:47 PM CDT [facility] AST 49(H) 5 - 34 U/L 03/20/2021 2:47 PM CDT [facility] Protein Total 8.8(H) 6.4 - 8.3 gm/dL 03/20/2021 2:47 PM CDT [facility] Albumin 3.1(L) 3.5 - 5.2 gm/dL 03/20/2021 2:47 PM CDT [facility] Bilirubin Total 0.2 0.2 - 1.2 mg/dL 03/20/2021 2:47 PM CDT [facility] eGFR by MDRD >60 >60 mL/min/1.7 3m2 03/20/2021 2:47 PM CDT [facility] eGFR by MDRD >60 >60 mL/min/1.7 3m2 03/20/2021 2:47 PM CDT [facility] Blood BLOOD SPECIMEN / Unknown Venipuncture / Unknown 03/20/2021 3:40 AM CDT 03/20/2021 1:25 PM CDT Andrés Ferro MD LAB - CHEMISTRY OR DERABLES Performing Organization Address City/State/[facility] Co de Phone Number [facility] [address] [place] [address] documented in this encounter Visit Diagnoses Not on filedocumented in this encounter Care Teams Temporary Receptionist Relationship Specialty Start Date End Date Pepe Martel MD [address] [place] [id number] PCP - General 08/14/16 documented as of this encounter
--- OUTSIDE RECORDS SUMMARY | 2024-05-23 03:21 | XMS_ITS | Encounter Summary ---
Author Organization [facility] Address [address] [facility] [place] [address] Care Team Providers Care Veterinary Practice Manager Name Role Phone Pepe Martel MD Primary Care Provider [phone] Encounter Details Date Type Department Care Team (Late st Contact Info) Description 03/15/2021 Lab Requisition [facility] [address] [place] [address] Unknown, Provider Social History Tobacco Use Types Packs/Day Years [...] Diagnosis Comments CBC W AUTO DIFFERENTIAL STAT 03/15/2021 3:00 AM CDT COMPREHENSIVE METABOLIC PANEL STAT 03/15/2021 3:00 AM CDT documented in this encounter Results * (ABNORMAL) CBC WITH DIFFERENTIAL (03/15/2021 3:00 AM CDT) WBC 16.3(H) 4.4 - 10.7 x10E9/L 03/15/2021 10:40 AM CDT [facility] WBC Corrected 03/15/2021 10:40 AM CDT [facility] RBC 3.75(L) 3.80 - 5.40 x10E12/L 03/15/2021 10:40 AM CDT [facility] Hemoglobin 10.2(L) 12.0 - 17.6 gm/dL 03/15/2021 10:40 AM CDT [facility] Hematocrit 33.6(L) 35.2 - 51.7 % 03/15/2021 10:40 AM CDT [facility] MCV 89.6 80.7 - 98.3 fl 03/15/2021 10:40 AM CDT [facility] MCH 27.2 26.7 - 34.0 pg 03/15/2021 10:40 AM CDT [facility] MCHC 30.4(L) 30.8 - 35.9 gm/dL 03/15/2021 10:40 AM CDT [facility] Platelet Count 498(H) 153 - 416 x10E9/L 03/15/2021 10:40 AM CDT [facility] RDW-CV 13.6 12.1 - 14.9 % 03/15/2021 10:40 AM CDT [facility] MPV 10.8 9.4 - 12.9 fl 03/15/2021 10:40 AM CDT [facility] Neutrophils % 81.1(H) 44.0 - 73.0 % 03/15/2021 10:40 AM CDT [facility] Lymphocytes % 8.2(L) 20.0 - 43.0 % 03/15/2021 10:40 AM CDT [facility] Monocytes % 7.3 5.0 - 13.0 % 03/15/2021 10:40 AM CDT [facility] Eosinophils % 2.0 0.0 - 6.0 % 03/15/2021 10:40 AM CDT [facility] Basophils % 0.2 0.0 - 2.0 % 03/15/2021 10:40 AM CDT [facility] Immature Granulocytes 1.2(H) 0 - 1 % 03/15/2021 10:40 AM CDT [facility] Neutrophil Absolute 13.19(H) 2.01 - 7.14 x10E9/L 03/15/2021 10:40 AM CDT [facility] Lymphocytes Absolute 1.33 1.07 - 3.94 x10E9/L 03/15/2021 10:40 AM CDT [facility] Monocytes Absolute 1.18(H) 0.26 - 1.07 x10E9/L 03/15/2021 10:40 AM CDT [facility] Eosinophils Absolute 0.33 0 - 0.47 x10E9/L 03/15/2021 10:40 AM CDT [facility] Basophils Absolute 0.04 0 - 0.08 x10E9/L 03/15/2021 10:40 AM CDT [facility] Immature Granulocytes Absolute 0.19(H) 0.00 - 0.06 x10E9/L 03/15/2021 10:40 AM CDT [facility] nRBC Auto 0 /100 WBC 03/15/2021 10:40 AM CDT [facility] Blood BLOOD SPECIMEN / Unknown Venipuncture / Unknown 03/15/2021 3:00 AM CDT 03/15/2021 9:41 AM CDT Provider Unknown LAB - HEMATOLOGY ORD ERABLES [facility] [address] [place] [address] * (ABNORMAL) COMPREHENSIVE METABOLIC PANEL (03/15/2021 3:00 AM CDT) [facility] Glucose 128(H) 70 - 105 mg/dL 03/15/2021 10:22 AM CDT [facility] Sodium 137 136 - 145 mmol/L 03/15/2021 10:22 AM [facility] Potassium 5.3(H) 3.5 - 5.1 mmol/L 03/15/2021 10:22 AM [facility] Chloride 103 98 - 107 mmol/L 03/15/2021 10:22 AM [facility] CO2 20(L) 23 - 31 mmol/L 03/15/2021 10:22 AM [facility] Calcium 8.5 8.4 - 10.4 mg/dL 03/15/2021 10:22 AM [facility] Anion Gap 14 8 - 18 mmol/L 03/15/2021 10:22 AM [facility] BUN 36(H) 8.9 - 20.6 mg/dL 03/15/2021 10:22 AM [facility] Creatinine 1.37(H) 0.72 - 1.25 mg/dL 03/15/2021 10:22 AM [facility] Alkaline Phosphatase 263(H) 40 - 150 U/L 03/15/2021 10:22 AM [facility] ALT 40 0 - 61 U/L 03/15/2021 10:22 AM [facility] AST 43(H) 5 - 34 U/L 03/15/2021 10:22 AM [facility] Protein Total 8.1 6.4 - 8.3 gm/dL 03/15/2021 10:22 AM [facility] Albumin 3.0(L) 3.5 - 5.2 gm/dL 03/15/2021 10:22 AM [facility] Bilirubin Total 0.4 0.2 - 1.2 mg/dL 03/15/2021 10:22 AM [facility] eGFR by MDRD 59(L) >60 mL/min/1.7 3m2 03/15/2021 10:22 AM [facility] eGFR by MDRD >60 >60 mL/min/1.7 3m2 03/15/2021 10:22 AM [facility] Blood BLOOD SPECIMEN / Unknown Venipuncture / Unknown 03/15/2021 3:00 AM CDT 03/15/2021 9:41 AM T Provider Unknown LAB - CHEMISTRY ORDE RABLES [facility] [address] [place] [address] documented in this encounter Visit Diagnoses Not on filedocumented in this encounter Care Teams Veterinary Practice Manager Relationship Specialty Start Date End Date Pepe Martel MD [address] [facility] [address] [place] [address] PCP - General 08/14/16 documented as of this encounter
--- OUTSIDE RECORDS SUMMARY | 2024-05-23 03:21 | XMS_ITS | Encounter Summary ---
Author Organization [facility] Health Address [address] [facility] [place] [address] Care Team Providers Care Inspector Casing Name Role Phone Pepe Martel MD Primary Care Provider [phone] Encounter Details Date Type Department Care Team (Late st Contact Info) Description 04/02/2021 Lab Requisition [facility] [address] [place] [address] Lamberto De La Cruz MD [address] [facility] [address] [place] [address] Social History Tobacco Use Types [...] Priority Date/Time Associated Diagnosis Comments PTT STAT 04/02/2021 5:00 AM AGENT BROKER PT-INR STAT 04/02/2021 5:00 AM AGENT BROKER CBC W AUTO DIFFERENTIAL STAT 04/02/2021 5:00 AM AGENT BROKER COMPREHENSIVE METABOLIC PANEL STAT 04/02/2021 5:00 AM AGENT BROKER documented in this encounter Results * PTT (04/02/2021 5:00 AM AGENT BROKER) PTT 31.5 23.0 - 38.4 sec 04/02/2021 10:20 AM AGENT BROKER [facility] Blood BLOOD SPECIMEN / Unknown Venipuncture / Unknown 04/02/2021 5:00 AM AGENT BROKER 04/02/2021 9:36 AM AGENT BROKER Narrative [facility] - 04/02/2021 10:20 AM AGENT BROKER Heparin Therapeutic Range for PTT: ??69.0 - 110.0 seconds. Lamberto De La Cruz MD LAB - COAGULATION OR DERABLES Performing Organization Address City/State/[facility] Co de Phone Number [facility] [address] [place], [place] [id number] * PT-INR (04/02/2021 5:00 AM AGENT BROKER) PT 14.5 12.1 - 14.8 sec 04/02/2021 10:19 AM AGENT BROKER [facility] INR 1.1 0.9 - 1.1 04/02/2021 10:19 AM AGENT BROKER [facility] Blood BLOOD SPECIMEN / Unknown Venipuncture / Unknown 04/02/2021 5:00 AM AGENT BROKER 04/02/2021 9:36 AM AGENT BROKER Narrative [facility] - 04/02/2021 10:19 AM AGENT BROKER Conventional Warfarin Anticoagulant Therapy: INR Reference Range: ??2.0-3.0 Intensive Warfarin Anticoagulant Therapy: INR Reference Range: ? 2.5-3.5 Lamberto De La Cruz MD LAB - COAGULATION OR DERABLES [facility] [address] [place] [address] * (ABNORMAL) CBC WITH DIFFERENTIAL (04/02/2021 5:00 AM AGENT BROKER) [facility] Signature WBC 7.6 4.4 - 10.7 x10E9/L 04/02/2021 10:14 AM [facility] WBC Corrected 04/02/2021 10:14 AM [facility] RBC 3.24(L) 3.80 - 5.40 x10E12/L 04/02/2021 10:14 AM [facility] Hemoglobin 8.9(L) 12.0 - 17.6 gm/dL 04/02/2021 10:14 AM [facility] Hematocrit 30.2(L) 35.2 - 51.7 % 04/02/2021 10:14 AM [facility] MCV 93.2 80.7 - 98.3 fl 04/02/2021 10:14 AM [facility] MCH 27.5 26.7 - 34.0 pg 04/02/2021 10:14 AM [facility] MCHC 29.5(L) 30.8 - 35.9 gm/dL 04/02/2021 10:14 AM [facility] Platelet Count 369 153 - 416 x10E9/L 04/02/2021 10:14 AM [facility] RDW-CV 15.4(H) 12.1 - 14.9 % 04/02/2021 10:14 AM [facility] MPV 10.1 9.4 - 12.9 fl 04/02/2021 10:14 AM [facility] Neutrophils % 63.6 44.0 - 73.0 % 04/02/2021 10:14 AM [facility] Lymphocytes % 17.9(L) 20.0 - 43.0 % 04/02/2021 10:14 AM [facility] Monocytes % 12.0 5.0 - 13.0 % 04/02/2021 10:14 AM [facility] Eosinophils % 5.7 0.0 - 6.0 % 04/02/2021 10:14 AM [facility] Basophils % 0.7 0.0 - 2.0 % 04/02/2021 10:14 AM [facility] Immature Granulocytes 0.1 0 - 1 % 04/02/2021 10:14 AM [facility] Neutrophil Absolute 4.83 2.01 - 7.14 x10E9/L 04/02/2021 10:14 AM [facility] Lymphocytes Absolute 1.36 1.07 - 3.94 x10E9/L 04/02/2021 10:14 AM [facility] Monocytes Absolute 0.91 0.26 - 1.07 x10E9/L 04/02/2021 10:14 AM [facility] Eosinophils Absolute 0.43 0 - 0.47 x10E9/L 04/02/2021 10:14 AM [facility] Basophils Absolute 0.05 0 - 0.08 x10E9/L 04/02/2021 10:14 AM [facility] Immature Granulocytes Absolute 0.01 0.00 - 0.06 x10E9/L 04/02/2021 10:14 AM [facility] nRBC Auto 0 /100 WBC 04/02/2021 10:14 AM [facility] Blood BLOOD SPECIMEN / Unknown Venipuncture / Unknown 04/02/2021 5:00 AM AGENT BROKER 04/02/2021 9:36 AM [facility] Lamberto De La Cruz MD LAB - HEMATOLOGY ORD ERABLES [facility] [address] [place] [address] * (ABNORMAL) COMPREHENSIVE METABOLIC PANEL (04/02/2021 5:00 AM [facility]) [facility] Glucose 125(H) 70 - 105 mg/dL 04/02/2021 10:37 AM [facility] Sodium 142 136 - 145 mmol/L 04/02/2021 10:37 AM [facility] Potassium 4.2 3.5 - 5.1 mmol/L 04/02/2021 10:37 AM [facility] Chloride 107 98 - 107 mmol/L 04/02/2021 10:37 AM [facility] CO2 21(L) 23 - 31 mmol/L 04/02/2021 10:37 AM [facility] Calcium 9.1 8.4 - 10.4 mg/dL 04/02/2021 10:37 AM [facility] Anion Gap 14 8 - 18 mmol/L 04/02/2021 10:37 AM [facility] BUN 25(H) 8.9 - 20.6 mg/dL 04/02/2021 10:37 AM [facility] Creatinine 0.90 0.72 - 1.25 mg/dL 04/02/2021 10:37 AM [facility] Alkaline Phosphatase 104 40 - 150 U/L 04/02/2021 10:37 AM [facility] ALT 20 0 - 61 U/L 04/02/2021 10:37 AM [facility] AST 26 5 - 34 U/L 04/02/2021 10:37 AM [facility] Protein Total 7.5 6.4 - 8.3 gm/dL 04/02/2021 10:37 AM [facility] Albumin 3.3(L) 3.5 - 5.2 gm/dL 04/02/2021 10:37 AM [facility] Bilirubin Total 0.3 0.2 - 1.2 mg/dL 04/02/2021 10:37 AM [facility] eGFR by MDRD >60 >60 mL/min/1.7 3m2 04/02/2021 10:37 AM [facility] eGFR by MDRD >60 >60 mL/min/1.7 3m2 04/02/2021 10:37 AM [facility] Blood BLOOD SPECIMEN / Unknown Venipuncture / Unknown 04/02/2021 5:00 AM AGENT BROKER 04/02/2021 9:36 AM AG[facility] BROKER Lamberto De La Cruz MD LAB - CHEMISTRY JOSE ENRIQUE VELA [facility] Organization Address City/State/ZIP Co de Phone Number [facility] [address] [place], [place] [id number] documented in this encounter Visit Diagnoses Not on filedocumented in this encounter Care Teams Inspector Casing Relationship Specialty Start Date End Date Pepe Martel MD [address] [place] [id number] PCP - General 08/14/16 documented as of this encounter
--- OUTSIDE RECORDS SUMMARY | 2024-05-23 03:21 | XMS_ITS | Encounter Summary ---
Author Organization [facility] Health Address [address] [place] [address] Care Team Providers Care Hydrologist Name Role Phone Pepe Martel MD Primary Care Provider [phone] Encounter Details Date Type Department Care Team (Late st Contact Info) Description 03/21/2021 Lab Requisition [facility] [address] [place] [address] Fredy Sue [address] [place] [phone] Social History Tobacco Use Types Packs/Day [...] Associated Diagnosis Comments COMPREHENSIVE METABOLIC PANEL STAT 03/21/2021 3:00 AM CDT documented in this encounter Results * (ABNORMAL) COMPREHENSIVE METABOLIC PANEL (03/21/2021 3:00 AM CDT) Glucose 111(H) 70 - 105 mg/dL 03/21/2021 9:38 AM CDT [facility] Sodium 137 136 - 145 mmol/L 03/21/2021 9:38 AM CDT [facility] Potassium 5.4(H) 3.5 - 5.1 mmol/L 03/21/2021 9:38 AM CDT [facility] Chloride 100 98 - 107 mmol/L 03/21/2021 9:38 AM CDT [facility] CO2 21(L) 23 - 31 mmol/L 03/21/2021 9:38 AM CDT [facility] Calcium 8.8 8.4 - 10.4 mg/dL 03/21/2021 9:38 AM CDT [facility] Anion Gap 16 8 - 18 mmol/L 03/21/2021 9:38 AM CDT [facility] BUN 31(H) 8.9 - 20.6 mg/dL 03/21/2021 9:38 AM CDT [facility] Creatinine 1.26(H) 0.72 - 1.25 mg/dL 03/21/2021 9:38 AM CDT [facility] Alkaline Phosphatase 196(H) 40 - 150 U/L 03/21/2021 9:38 AM CDT [facility] ALT 45 0 - 61 U/L 03/21/2021 9:38 AM CDT [facility] AST 53(H) 5 - 34 U/L 03/21/2021 9:38 AM CDT [facility] Protein Total 8.7(H) 6.4 - 8.3 gm/dL 03/21/2021 9:38 AM CDT [facility] Albumin 3.1(L) 3.5 - 5.2 gm/dL 03/21/2021 9:38 AM CDT [facility] Bilirubin Total 0.3 0.2 - 1.2 mg/dL 03/21/2021 9:38 AM CDT [facility] eGFR by MDRD >60 >60 mL/min/1.7 3m2 03/21/2021 9:38 AM CDT [facility] eGFR by MDRD >60 >60 mL/min/1.7 3m2 03/21/2021 9:38 AM CDT [facility] Blood BLOOD SPECIMEN / Unknown Venipuncture / Unknown 03/21/2021 3:00 AM CDT 03/21/2021 9:05 AM CDT Fredy Sue LAB - CHEMISTRY JOSE ENRIQUE VEL[facility] ([place], [place]) Organization Address City/State/[facility] Co de Phone Number [facility] [address] [place] [address] documented in this encounter Visit Diagnoses Not on filedocumented in this encounter Care Teams Hydrologist Relationship Specialty Start Date End Date Pepe Martel MD [address] [place] [id number] PCP - General 08/14/16 documented as of this encounter
--- OUTSIDE RECORDS SUMMARY | 2024-05-23 03:21 | XMS_ITS | Encounter Summary ---
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 8:05 AM [facility] 0.5 mg G Tube $ Given 04/01/2021 2:41 AM [facility] 0.5 mg G Tube dextrose 5% and lactated ringers solution at 75 mL/hr, Intravenous, CONTINUOUS, Starting on Wed03/24/21 at 1700, Until Wed03/25/21 at 1631 Current Rate 03/25/2021 12:00 AM [facility] 75 mL/hr Current Rate 03/24/2021 9:10 PM [facility] 75 mL/hr Current Rate 03/24/2021 8:00 PM [facility] 75 mL/hr fentaNYL (PF) (Sublimaze) injection 100 mcg 100 mcg, Intravenous, NOW, 1 dose, On Wed03/24/21 at 0130 $ Given 03/24/2021 1:46 AM [facility] 100 mcg fentaNYL (PF) (Sublimaze) injection 100 mcg 100 mcg, Intravenous, NOW, 1 dose, On Wed03/24/21 at 0315 $ Given 03/24/2021 3:15 AM [facility] 100 mcg fentaNYL (PF) (Sublimaze) injection 200 mcg 200 mcg, Intravenous, ONCE, 1 dose, On Wed03/24/21 at 0500 $ Given 03/24/2021 5:02 AM [facility] 200 mcg fentaNYL (PF) (Sublimaze) injection 50 mcg 50 mcg, Intravenous, EVERY 2 HOURS PRN, Moderate Pain, Starting on Wed03/25/21 at 2141, Until Wed03/26/21 at 1138 $ Given 03/26/2021 10:41 AM [facility] 50 mcg $ Given 03/26/2021 4:28 AM [facility] 50 mcg $ Given 03/26/2021 2:02 AM [facility] 50 mcg fentaNYL (PF) (Sublimaze) injection 50 mcg 50 mcg, Intravenous, EVERY 4 HOURS PRN, Severe Pain, only if uncontrolled by PO oxycodone, Starting on Wed03/26/21 at 1145, Until Wed03/30/21 at 1224 $ Given 03/30/2021 6:41 AM [facility] 50 mcg $ Given 03/30/2021 1:42 AM [facility] 50 mcg $ Given 03/29/2021 8:43 PM [facility] 50 mcg fentaNYL (Sublimaze) bolus from infusion bag 50 mcg 50 mcg, Intravenous, BOLUS FROM BAG PRN, CPOT goal, Starting on Wed03/24/21 at 0430, Until Wed03/25/21 at 2141, Bolus from bag every 5 minutes to reach CPOT goal. Can give bolus before anticipated painful stimuli. Contact physician if unable to achieve CPOT goal after administering 4 boluses. If a sedative is ordered, titrate/administer opioid first to achieve CPOT goal, followed by titration/administration of sedative to achieve RASS goal. Bolus From Bag 03/24/2021 4:11 PM [facility] 50 mcg Bolus From Bag 03/24/2021 4:00 PM [facility] 50 mcg fentaNYL (Sublimaze) injection 0.05 mg/mL ADS Med 1 dose, Starting on Wed03/24/21 at 0124, Until Wed03/24/21 at 0146, Created by cabinet override fentaNYL (Sublimaze) injection 0.05 mg/mL ADS Med 1 dose, Starting on Wed03/24/21 at 0434, Until Wed03/24/21 at 0536, Created by cabinet override $ Given 03/24/2021 5:36 AM [facility] 100 mcg fentaNYL 2500 mcg/50mL (Sublimaze) infusion 0-300 mcg/hr (0-6 mL/hr), Intravenous, CONTINUOUS, Starting on Wed03/24/21 at 0515, Until Wed03/24/21 at 0505, Above CPOT goal: bolus every 5 minutes until goal CPOT then increase rate per order. Can give bolus before anticipated painful stimuli. Contact physician if unable to achieve CPOT goal after administering 4 boluses. At CPOT goal and no change in 4 hours: Decrease rate per order If significant hemodynamic changes, notify physician for instructions. Notify physician for inability to reach goals despite maximal dosage. If a sedative is ordered, titrate/administer opioid first to achieve CPOT goal, followed by titration/administration of sedative to achieve RASS goal., Titration Parameters: Analgesia, Indication: Analgesia, Initiate infusion at: 25 mcg/hr, Titrate infusion by: 25 mcg/hr, Notify physician if: Unachievable CPOT goal despite max dose, Titration Priority: 1st $ New Bag/Syringe 03/24/2021 4:59 AM [facility] 25 mcg/hr 0.5 mL/hr fentaNYL 2500 mcg/50mL (Sublimaze) infusion 0-300 mcg/hr (0-6 mL/hr), Intravenous, CONTINUOUS, Starting on Wed03/24/21 at 0515, Until Wed03/25/21 at 0859, Above CPOT goal: bolus every 5 minutes until goal CPOT then increase rate per order. Can give bolus before anticipated painful stimuli. Contact physician if unable to achieve CPOT goal after administering 4 boluses. At CPOT goal and no change in 4 hours: Decrease rate per order If significant hemodynamic changes, notify physician for instructions. Notify physician for inability to reach goals despite maximal dosage. If a sedative is ordered, titrate/administer opioid first to achieve CPOT goal, followed by titration/administration of sedative to achieve RASS goal., Titration Parameters: Analgesia, Indication: Analgesia, Initiate infusion at: 25 mcg/hr, Titrate infusion by: 25 mcg/hr, Notify physician if: Unachievable CPOT goal despite max dose, Titration Priority: 2nd Current Rate 03/25/2021 12:00 AM [facility] 75 mcg/hr 1.5 mL/hr Current Rate 03/24/2021 8:00 PM [facility] 75 mcg/hr 1.5 mL/hr Rate Change 03/24/2021 4:11 PM [facility] 75 mcg/hr 1.5 mL/hr gabapentin (Neurontin) capsule 100 mg 100 mg, Oral, ONCE, 1 dose, On Jalyn 03/27/21 at 2030 $ Given 03/27/2021 8:21 PM [facility] 100 mg glycopyrrolate (Robinul) injection 0.2 mg 0.2 mg, Intravenous, 3 TIMES DAILY PRN, secretions, Starting on Wed03/24/21 at 1756, Until Jonancy 03/30/21 at 1224 $ Given 03/25/2021 9:16 PM [facility] 0.2 mg $ Given 03/24/2021 6:46 PM [facility] ASS[facility] 0.2 mg iopamidol (Isovue 370) contrast ADS Med 1 dose, Starting on Wed03/23/21 at 1755, Until Wed03/23/21 at 1819, Created by cabinet override $ Given - Contrast 03/23/2021 6:19 PM CALL [facility] ASS[facility]IATE 150 mL labetalol (Normodyne; Trandate) injection 10 mg 10 mg, Intravenous, ONCE, 1 dose, On Wed03/24/21 at 1045, Max IV dose is 300mg/24 hours. $ Given 03/24/2021 10:43 AM CALL [facility]ENTER ASS[facility]IATE 10 mg labetalol (Normodyne; Trandate) injection 10 mg 10 mg, Intravenous, EVERY 4 HOURS PRN, SBP greater than 170 mmHg, Starting on 03/25/21 at 1719, Until Wed04/01/21 at 2042, Max IV dose is 300mg/24 hours. $ Given 03/25/2021 6:17 PM CALL [facility]ENTER ASS[facility] 10 mg lactated ringers infusion at 125 mL/hr, Intravenous, CONTINUOUS, Starting on 03/23/21 at 1330, Until Wed03/24/21 at 1655 $ New Bag/Syringe 03/24/2021 12:40 PM [facility] 125 mL/hr $ New Bag/Syringe 03/24/2021 4:23 AM CALL CENTER ASS[facility]IATE 125 mL /hr $ New Bag/Syringe 03/23/2021 7:14 PM [facility] 1,000 mL 125 mL /hr lactated ringers IV bolus 2,190 mL (30 mL/kg ? 73 kg Hollister weight), at 2,190 mL/hr, Administer over 60 Minutes, BOLUS IV, 1 dose, On Jonancy 03/23/21 at 1330, Monitor closely and notify physician for persistent hypotension during initial 60 minutes after crystalloid 30 ml/kg bolus stop time. (hypotension = SBP LESS than 90 mmHg or MAP LESS than 65 mmHg or decrease in SBP by more than 40 mmHg from last SBP considered normal for patient) Patient has a BMI greater than 30 or obesity. Hollister Body Weight used for sepsis bolus dosing. $ New Bag/Syringe 03/23/2021 2:14 PM [facility] 2,190 mL 2190 mL/hr lactated ringers IV bolus 1,000 mL, at 495.87 mL/hr, Administer over 121 Minutes, NOW, 1 dose, On Jonancy 03/23/21 at 2330 $ New Bag/Syringe 03/23/2021 11:57 PM [facility] 1,000 mL 495.87 mL/hr levETIRAcetam (Keppra) 1,000 mg in 100 mL IVPB 1,000 mg, at 400 mL/hr, Intravenous, EVERY 12 HOURS, First dose on Wed03/23/21 at 2115, Until Discontinued $ New Bag/Syringe 03/25/2021 8:34 AM [facility] 1,000 mg 400 mL/hr Current Rate 03/24/2021 8:50 PM [facility] ASS[facility] 400 mL/hr $ New Bag/Syringe 03/24/2021 8:47 PM CALL [facility] ASS[facility] 1,000 mg 400 mL /hr levETIRAcetam (Keppra) 4,500 mg in 0.9% NaCl IV 295 mL IVPB 4,500 mg, at 590 mL/hr, Intravenous, ONCE, 1 dose, On Wed03/23/21 at 2100 $ New Bag/Syringe 03/23/2021 9:40 PM CALL [facility] 4,500 mg 590 mL/hr levETIRAcetam (Keppra) tablet 1,000 mg 1,000 mg, Oral, 2 TIMES DAILY, First dose on Wed03/25/21 at 2100, Until Discontinued, Do not crush or chew because of TASTE only. $ Given 04/01/2021 8:06 AM CALL [facility]ENTER ASSOCIATE 1,000 mg $ Given 03/31/2021 8:13 PM [facility] 1,000 mg $ Given 03/31/2021 8:29 AM [facility] ASS[facility] 1,000 mg lidocaine (Xylocaine) 2% injection ADS Med 1 dose, Starting on Wed03/23/21 at 1603, Until Wed03/23/21 at 1610, Created by cabinet override $ Given 03/23/2021 4:10 PM CALL CENTER ASSOCIATE linezolid (Zyvox) 600 mg in 300 ml IVPB 600 mg, at 200 mL/hr, Intravenous, EVERY 12 HOURS, First dose on Wed03/24/21 at 0145, Until Discontinued, Indication for anti-infective therapy: Suspected infection, Site of anti-infective therapy: Intra-abdominal $ New Bag/Syringe 03/25/2021 1:58 AM CALL [facility] ASS[facility]IATE 600 mg 200 mL/hr $ New Bag/Syringe 03/24/2021 1:01 PM [facility] ASS[facility] 600 mg 200 mL /hr $ New Bag/Syringe 03/24/2021 1:56 AM CALL C[facility] ASSOCIATE 600 mg 200 mL /hr LORazepam (Ativan) injection 2 mg 2 mg, Intravenous, EVERY 4 HOURS PRN, Seizures, Neuro storming symptoms (tachycardia, hypertension, posturing), Starting on [facility] 03/29/21 at 0911, Until Jonancy 03/30/21 at 0917 $ Given 03/30/2021 6:27 AM CALL CENTER ASS[facility]IATE 2 mg $ Given 03/30/2021 2:34 AM CALL CENTER ASSOCIATE 2 mg $ Given 03/29/2021 2:02 PM CALL [facility] ASS[facility]IATE 2 mg metroNIDAZOLE (Flagyl) tablet 500 mg 500 mg, Oral, EVERY 8 HOURS, First dose on Wed03/25/21 at 1700, Until Discontinued, May take with food or milk., Indication for anti-infective therapy: Documented infection, Site of anti-infective therapy: Skin/soft tissue, Intra-abdominal $ Given 04/01/2021 3:29 PM CALL [facility]ENTER ASS[facility]IATE 500 mg $ Given 04/01/2021 5:33 AM CALL CENTER ASSOCIATE 500 mg $ Given 03/31/2021 8:13 PM CALL [facility] ASS[facility]IATE 500 mg midazolam (Versed) 1 mg/mL injection ADS Med 1 dose, Starting on Wed03/24/21 at 0434, Until Wed03/24/21 at 0501, Created by cabinet override midazolam (Versed) injection 5 mg 5 mg, Intravenous, ONCE, 1 dose, On Wed03/24/21 at 0500 $ Given 03/24/2021 5:01 AM CALL [facility] ASS[facility] 5 mg midazolam (Versed) injection 5 mg 5 mg, Intravenous, ONCE, 1 dose, On Wed03/24/21 at 0530 $ Given 03/24/2021 5:34 AM CALL [facility]ENTER ASSOCIATE 5 mg oxyCODONE (immediate release) (Roxicodone) tablet 5 mg 5 mg, Enteral Tube, EVERY 4 HOURS PRN, Moderate Pain, Severe Pain, Starting on Wed03/26/21 at 1138, Until Wed03/30/21 at 0917 $ Given 03/30/2021 8:42 AM CALL [facility]ENTER ASS[facility] 5 mg G Tub e $ Given 03/30/2021 2:36 AM CALL [facility]ENTER ASS[facility] 5 mg G Tube $ Given 03/29/2021 6:21 PM CALL [facility] ASS[facility]IATE 5 mg G Tube oxyCODONE (immediate release) (Roxicodone) tablet 5 mg 5 mg, Enteral Tube, EVERY 6 HOURS, First dose (after last modification) on Wed03/30/21 at 1445, Until Discontinued $ Given 04/01/2021 3:29 PM CALL CENTER ASSOCIATE 5 mg G Tube $ Given 04/01/2021 8:06 AM CALL [facility]ENTER ASSOCIATE 5 mg G Tube $ Given 04/01/2021 2:40 AM CALL [facility] ASSOCIATE 5 mg G Tube oxyCODONE (immediate release) (Roxicodone) tablet 5 mg 5 mg, Enteral Tube, ONCE, 1 dose, On Wed04/01/21 at 1245 $ Given 04/01/2021 12:38 PM CALL [facility] ASSOCIATE 5 mg G Tube pantoprazole (Protonix) injection 40 mg 40 mg, Intravenous, DAILY, First dose on Wed03/24/21 at 0900, Until Discontinued, For every 40 mg of pantoprazole mix with 10 mL Normal Saline (final concentration = 4 mg/mL). Inject SLOWLY over 2 min. $ Given 04/01/2021 8:06 AM CALL CENTER ASSOCIATE 40 mg $ Given 03/31/2021 8:21 AM CALL CENTER ASSOCIATE 40 mg $ Given 03/30/2021 8:42 AM CALL [facility]ENTER ASSOCIATE 40 mg polyethylene glycol 3350 (Miralax) packet 17 g 17 g, Enteral Tube, DAILY, First dose on Wed03/26/21 at 1215, Until Discontinued, Mix in 8 ounces of water, juice, soda, coffee or tea prior to administration $ Given 04/01/2021 8:06 AM CALL [facility]ENTER ASSOCIATE 17 g G T ube $ Given 03/31/2021 8:29 AM CALL CENTER ASSOCIATE 17 g G Tube $ Given 03/30/2021 8:42 AM CALL [facility]ENTER ASSOCIATE 17 g G Tube propofol (Diprivan) infusion 0-80 mcg/kg/min ? 174.6 kg (0-83.808 mL/hr, rounded to 0-83.81 mL/hr), Intravenous, CONTINUOUS, Starting on Wed03/24/21 at 0515, Until Wed03/25/21 at 0859, Above RASS goal: Assess and treat pain first if CPOT greater than 2. If agitation persists increase rate per order. At RASS goal and no change in 4 hours: Decrease rate per order. Below RASS goal (unarousable): Hold infusion until at goal RASS then restart at 50% previous rate. If significant hemodynamic changes notify physician for instructions. Notify physician for inability to reach goals despite maximal dosage. Note: The CPOT goal should be achieved first with the use of the ordered analgesic medication prior to targeting RASS goal with the sedative. Vial and Tubing should be changed and/or discarded every 12 hours., Titration Parameters: Standard Parameters, Indication: Sedation, Initiate infusion at: 5 mcg/kg/min, Titrate infusion by: 5 mcg/kg/min, Titrate every: 2 minutes, Notify physician if: Unachievable RASS goal despite max dose, Titration Priority: 1st $ New Bag/Syringe 03/25/2021 6:46 AM CALL CENTER ASSOCIATE 45 mcg/kg/min 47.14 mL/hr $ New Bag/Syringe 03/25/2021 2:49 AM CALL CENTER ASSOCIATE 40 mcg/kg/min 41. 9 mL/hr Current Rate 03/25/2021 12:00 AM CALL CENTER ASSOCIATE 35 mcg/kg/min 36.67 m L/hr propofol (Diprivan) injection Intravenous, CODE CONTINUOUS PRN, Starting on Wed03/23/21 at 1614, Until Wed03/23/21 at 1635 $ New Bag/Syringe 03/23/2021 4:35 PM CALL CENTER ASSOCIATE 50 mg 999 mL/hr $ New Bag/Syringe 03/23/2021 4:26 PM CALL [facility]ENTER ASSOCIATE 50 mg 999 mL /hr $ New Bag/Syringe 03/23/2021 4:19 PM CALL CENTER ASSOCIATE 100 mg 999 mL /hr propranolol (Inderal) injection 1 mg 1 mg, Intravenous, ONCE, 1 dose, On Wed03/24/21 at 0115 $ Given 03/24/2021 1:46 AM CALL [facility]ENTER ASSOCIATE 1 mg propranolol (Inderal) tablet 10 mg 10 mg, Oral, EVERY 8 HOURS, First dose on Wed03/24/21 at 0700, Until Discontinued, Avoid abrupt withdrawal $ Given 03/26/2021 6:05 AM CALL CENTER ASSOCIATE 10 mg $ Given 03/25/2021 9:02 PM CALL CENTER ASSOCIATE 10 mg $ Given 03/25/2021 1:34 PM CALL CENTER ASSOCIATE 10 mg propranolol (Inderal) tablet 20 mg 20 mg, Oral, EVERY 8 HOURS, First dose (after last modification) on Wed03/26/21 at 1400, Until Discontinued, Avoid abrupt withdrawal $ Given 04/01/2021 3:29 PM CALL [facility]ENTER ASSOCIATE 20 mg $ Given 04/01/2021 5:34 AM CALL CENTER ASSOCIATE 20 mg $ Given 03/31/2021 8:12 PM CALL [facility] ASSOCIATE 20 mg scopolamine (Transderm-Scop) 1 patch 1 patch, Administer over 72 Hours, EVERY 72 HOURS PRN, Nausea/Vomiting, Starting on Wed03/29/21 at 0040, Until Wed04/01/21 at 2042, Apply patch behind the ear, do not cut patch, only 1 patch should be worn at a time and remove old patch before applying new patch.This patch may contain metal and is not compatible with MRI. Notify radiology of patch location upon arrival to MRI. Each patch contains 1.5 mg scopolamine base and is formulated to deliver 1 mg of scopolamine over 72 hours. $ Applied 04/01/2021 7:22 AM CALL CENTER ASSOCIATE 1 patch Behind Left Ear $ Applied 03/29/2021 1:51 AM CALL CENTER ASSOCIATE 1 patch Be hind Left Ear scopolamine patch placement confirmation Transdermal, 2 TIMES DAILY, First dose on 03/29/21 at 0045, Until Discontinued, Patient has a patch to be confirmed on transition to inpatient and 2 times daily. senna-docusate (Senokot-S) tablet 1 tablet 1 tablet, Oral, DAILY, First dose on Wed03/24/21 at 0900, Until Discontinued $ Given 04/01/2021 8:05 AM CALL CENTER ASSOCIATE 1 tablet $ Given 03/31/2021 8:29 AM CALL CENTER ASSOCIATE 1 tablet $ Given 03/30/2021 8:42 AM CALL CENTER ASSOCIATE 1 tablet vancomycin (Vancocin) 1,250 mg in 250 mL NaCl IVPB Premix 1,250 mg, at 200 mL/hr, Intravenous, EVERY 12 HOURS, First dose (after last modification) on Wed03/28/21 at 1100, Until Discontinued, Indication for anti-infective therapy: Suspected infection, Site of anti-infective therapy: Other, Other site of infection (free text): sepsis unknown origin $ New Bag/Syringe 03/31/2021 12:07 AM CALL CENTER ASSOCIATE 1,250 mg 200 mL/hr $ New Bag/Syringe 03/30/2021 11:20 AM CALL CENTER ASSOCIATE 1,250 mg 200 m L/hr Current Rate 03/30/2021 12:39 AM CALL CENTER ASSOCIATE 200 mL/hr vancomycin (Vancocin) 1,250 mg in 275 mL IVPB Premix 1,250 mg, at 220 mL/hr, Intravenous, EVERY 8 HOURS, First dose on Wed03/25/21 at 1730, Until Discontinued, Indication for anti-infective therapy: Documented infection, Site of anti-infective therapy: Skin/soft tissue, Intra-abdominal $ New Bag/Syringe 03/26/2021 9:25 AM CALL CENTER ASSOCIATE 1,250 mg 220 mL/hr $ New Bag/Syringe 03/26/2021 3:52 AM CALL CENTER ASSOCIATE 1,250 mg 220 mL /hr $ New Bag/Syringe 03/25/2021 5:02 PM CALL CENTER ASSOCIATE 1,250 mg 220 mL /hr vancomycin (Vancocin) 1,750 mg in 500 mL NaCl IVPB 1,750 mg, at 285.71 mL/hr, Intravenous, EVERY 12 HOURS, First dose on Wed03/27/21 at 2300, Until Discontinued, Indication for anti-infective therapy: Suspected infection, Site of anti-infective therapy: Other, Other site of infection (free text): sepsis unknown origin $ New Bag/Syringe 03/27/2021 11:39 PM CALL CENTER ASSOCIATE 1,750 mg 285.71 mL/hr vancomycin (Vancocin) 1,750 mg in 500 mL NaCl IVPB 1,750 mg, at 285.71 mL/hr, Intravenous, EVERY 24 HOURS, First dose (after last modification) on Wed04/01/21 at 0500, Until Discontinued, Indication for anti-infective therapy: Suspected infection, Site of anti-infective therapy: Other, Other site of infection (free text): sepsis unknown origin $ New Bag/Syringe 04/01/2021 5:39 AM CALL CENTER ASSOCIATE 1,750 mg 285.71 mL/hr vancomycin (Vancocin) 2,500 mg in 500 mL NaCl IVPB 2,500 mg, at 200 mL/hr, Intravenous, ONCE, 1 dose, On Wed03/23/21 at 1400, Indication for anti-infective therapy: Suspected infection, Site of anti-infective therapy: Blood $ New Bag/Syringe 03/23/2021 2:25 PM CALL CENTER ASSOCIATE 2,500 mg 200 mL/hr vancomycin (Vancocin) 2,500 mg in 550 mL IVPB 2,500 mg, at 220 mL/hr, Intravenous, ONCE, 1 dose, On Wed03/25/21 at 0930, Indication for anti-infective therapy: Documented infection, Site of anti-infective therapy: Skin/soft tissue, Intra-abdominal $ New Bag/Syringe 03/25/2021 10:46 AM CALL CENTER ASSOCIATE 2,500 mg 220 mL/hr documented in this encounter Active and Recently Administered Medications Times are shown in CALL CENTER ASSOCIATE. Scheduled Medication Order 03/30/2021 03/31/2021 04/01/2021 0.9% NaCl injection 3 mL(Linked Group 1) 3 mL, Intracatheter, EVERY 8 HOURS, First dose on Wed03/23/21 at 1400, Until Discontinued, Flush peripheral IV catheter with 3 mL of normal saline every 8 hours. 0627 ($ Given - Provider: Maggie So RN)1409 ($ Given - Provider: Jaime Hernandez RN)2003 ($ Given - Provider: Kecia Trevizo, AIDA) 0631 ($ Given - Provider: Kecia Trevizo RN)1520 ($ Given - Provider: Nubia Sheffield RN)2339 ($ Given - Provider: Elke Martinez, AIDA) 0534 ($ Given - Provider: Elke Martinez, AIDA)1534 ($ Given - Provider: Sonia Ni, AIDA) amLODIPine (Norvasc) tablet 10 mg 10 mg, Enteral Tube, DAILY, First dose on Wed03/25/21 at 0900, Until Discontinued 0842 ($ Given - Provider: Jaime Hernandez RN) 0829 ($ Given - Provider: Sonia Ni, AIDA) 0806 ($ Given - Provider: Sonia Ni, AIDA) artificial tears ophthalmic ointment Each Eye, EVERY 8 HOURS, First dose on Wed03/24/21 at 0600, Until Discontinued 0627 ($ Given - Provider: Maggie So RN)1409 ($ Given - Provider: Jaime Hernandez RN)2004 ($ Given - Provider: Kecia Trevizo RN) 0641 (Not Administered - Provider: Kecia Trevizo RN - Reason: Per Administration Instructions)1520 ($ Given - Provider: Nubia Sheffield RN)2012 ($ Given - Provider: Elke Martinez, AIDA) 0534 (Not Administered - Provider: Elke Martinez, AIDA - Reason: Patient Condition)1534 ($ Given - Provider: Sonia Ni, IADA) cefepime (Maxipime) 2,000 mg in 0.9% NaCl IV 50 mL IVPB 2,000 mg (2 g), at 100 mL/hr, Intravenous, EVERY 8 HOURS, First dose on Wed04/01/21 at 2100, Until Discontinued, Indication for anti-infective therapy: Suspected infection, Site of anti-infective therapy: Blood cefepime (Maxipime) 2,000 mg in sterile water (PF) 20 mL syringe (CANCELED) 2,000 mg (2 g), Intravenous, EVERY 8 HOURS, First dose on Wed03/23/21 at 2030, Until Discontinued, Mix with 20 mL diluent for final concentration 2000 mg/20 mL. Administer IV over 6-10 minutes., Indication for anti-infective therapy: Suspected infection, Site of anti-infective therapy: Other, Other site of infection (free text): Sepsis Unknown Origin - Healthcare associated 0419 ($ Given - Provider: Kecia Trevizo RN)1150 ($ Given - Provider: Jaime Hernandez RN)2052 ($ Given - Provider: Bruna Conn RN) 0421 ($ Given - Provider: Kecia Trevizo RN)1221 ($ Given - Provider: Sonia Ni, ADIA)2012 ($ Given - Provider: Elke Martinez, AIDA) 0417 ($ Given - Provider: Elke Martinez, AIDA)1247 ($ Given - Provider: Sonia Ni, AIDA) chlorhexidine (Peridex) 0.12 % oral solution 15 mL 15 mL, Mouth/Throat, 4 TIMES DAILY, First dose (after last modification) on Wed03/24/21 at 0745, Until Discontinued, Swab oral mucosa for 30 seconds. Do not brush teeth immediately after use. . WASTE DISPOSAL INSTRUCTIONS: Black Bin Disposal required. 0627 ($ Given - Provider: Maggie So, RN)1120 ($ Given - Provider: Jaime Hernandez RN)1632 ($ Given - Provider: Jaime Hernandez RN)2004 ($ Given - Provider: Kecia Trevizo RN) 0631 ($ Given - Provider: Kecia Trevizo, RN)1221 ($ Given - Provider: Sonia Ni, AIDA)1700 ($ Given - Provider: Sonia Ni, AIDA)2011 ($ Given - Provider: Elke Martinez, AIDA) 0533 ($ Given - Provider: Elke Martinez, RN)1249 ($ Given - Provider: Sonia Ni, ADIA)1709 ($ Given - Provider: Sonia Ni, AIDA) clonazePAM (KlonoPIN) tablet 0.5 mg 0.5 mg, Enteral Tube, EVERY 6 HOURS (03,09,15,21), First dose on Wed03/30/21 at 1500, Until Discontinued 1409 ($ Given - Provider: Jaime Hernandez RN)2003 ($ Given - Provider: Kecia Trevizo RN) 0250 ($ Given - Provider: Kecia Trevizo RN)0829 ($ Given - Provider: Sonia Ni, AIDA)1519 ($ Given - Provider: Nubia Sheffield RN)2009 ($ Given - Provider: Elke Martinez, AIDA) 0241 ($ Given - Provider: Elke Martinez, AIDA)0805 ($ Given - Provider: Sonia iN, AIDA)1529 ($ Given - Provider: Sonia Ni, AIDA) levETIRAcetam (Keppra) tablet 1,000 mg 1,000 mg, Oral, 2 TIMES DAILY, First dose on Wed03/25/21 at 2100, Until Discontinued, Do not crush or chew because of TASTE only. 0842 ($ Given - Provider: Jaime Hernandez RN)2003 ($ Given - Provider: Kecia Trevizo RN) 0829 ($ Given - Provider: Sonia Ni RN)2012 ($ Given - Provider: Elke Martinez RN) 0806 ($ Given - Provider: Sonia Ni, AIDA) metroNIDAZOLE (Flagyl) tablet 500 mg 500 mg, Oral, EVERY 8 HOURS, First dose on Wed03/25/21 at 1700, Until Discontinued, May take with food or milk., Indication for anti-infective therapy: Documented infection, Site of anti-infective therapy: Skin/soft tissue, Intra-abdominal 0627 ($ Given - Provider: Maggie So RN)1409 ($ Given - Provider: Jaime Hernandez RN) 0004 ($ Given - Provider: Kecia Trevizo RN)0631 ($ Given - Provider: Kecia Trevizo, AIDA)1519 ($ Given - Provider: Nubia Sheffield, AIDA)2012 ($ Given - Provider: Elke Martinez RN) 0533 ($ Given - Provider: Elke Martinez RN)1529 ($ Given - Provider: Sonia Ni, AIDA) oxyCODONE (immediate release) (Roxicodone) tablet 5 mg 5 mg, Enteral Tube, EVERY 6 HOURS, First dose (after last modification) on Wed03/30/21 at 1445, Until Discontinued 1409 ($ Given - Provider: Jaime Hernandez RN)2003 ($ Given - Provider: Kecia Trevizo RN) 0250 ($ Given - Provider: Kecia Trevizo RN)0829 ($ Given - Provider: Sonia Ni, AIDA)1519 ($ Given - Provider: Nubia Sheffield, AIDA)2010 ($ Given - Provider: Elke Martinez RN) 0240 ($ Given - Provider: Elke Martinez RN)0806 ($ Given - Provider: Sonia Ni, AIDA)1529 ($ Given - Provider: Sonia Ni, AIDA) oxyCODONE (immediate release) (Roxicodone) tablet 5 mg (COMPLETED) 5 mg, Enteral Tube, ONCE, 1 dose, On Wed04/01/21 at 1245 1238 ($ Given - Provider: Sonia Ni, AIDA) pantoprazole (Protonix) injection 40 mg 40 mg, Intravenous, DAILY, First dose on Wed03/24/21 at 0900, Until Discontinued, For every 40 mg of pantoprazole mix with 10 mL Normal Saline (final concentration = 4 mg/mL). Inject SLOWLY over 2 min. 0842 ($ Given - Provider: Jaime Hernandez RN) 0821 ($ Given - Provider: Sonia Ni, RN) 0806 ($ Given - Provider: Sonia Ni, RN) polyethylene glycol 3350 (Miralax) packet 17 g 17 g, Enteral Tube, DAILY, First dose on Wed03/26/21 at 1215, Until Discontinued, Mix in 8 ounces of water, juice, soda, coffee or tea prior to administration 0842 ($ Given - Provider: Jaime Hernandez RN) 0829 ($ Given - Provider: Sonia Ni RN) 0806 ($ Given - Provider: Sonia Ni RN) propranolol (Inderal) tablet 20 mg 20 mg, Oral, EVERY 8 HOURS, First dose (after last modification) on Wed03/26/21 at 1400, Until Discontinued, Avoid abrupt withdrawal 0627 ($ Given - Provider: Maggie So RN)1409 ($ Given - Provider: Jaime Hernandez RN)2005 ($ Given - Provider: Kecia Trevizo, AIDA) 0631 ($ Given - Provider: Kecia Trevizo RN)1519 ($ Given - Provider: Nubia Sheffield RN)2011 ($ Given - Provider: Elke Martinez RN) 0534 ($ Given - Provider: Elke Martinez, AIDA)1529 ($ Given - Provider: Sonia Ni RN) scopolamine patch placement confirmation(Linked Group 2) Transdermal, 2 TIMES DAILY, First dose on Wed03/29/21 at 0045, Until Discontinued, Patient has a patch to be confirmed on transition to inpatient and 2 times daily. 0843 (*Reviewed - Provider: Jaime Hernandez RN)2054 (*Reviewed - Provider: Bruna Conn RN) 0834 (*Reviewed - Provider: Sonia Ni RN - Comment: behind L ear)2012 (*Reviewed - Provider: Elke Martinez RN) 08 (*Reviewed - Provider: Sonia Ni RN - Comment: behind left ear) senna-docusate (Senokot-S) tablet 1 tablet 1 tablet, Oral, DAILY, First dose on Wed03/24/21 at 0900, Until Discontinued 0842 ($ Given - Provider: Jaime Hernandez RN) 0829 ($ Given - Provider: Sonia Ni, AIDA) 0805 ($ Given - Provider: Sonia Ni, AIDA) vancomycin (Vancocin) 1,250 mg in 250 mL NaCl IVPB Premix (CANCELED) 1,250 mg, at 200 mL/hr, Intravenous, EVERY 12 HOURS, First dose (after last modification) on Wed03/28/21 at 1100, Until Discontinued, Indication for anti-infective therapy: Suspected infection, Site of anti-infective therapy: Other, Other site of infection (free text): sepsis unknown origin 0036 ($ New Bag/Syringe - Provider: Kecia Trevizo RN)0039 (Current Rate - Provider: Kecia Trevizo RN)0206 (Stopped - Provider: Kecia Trevizo RN)1120 ($ New Bag/Syringe - Provider: Jaime Hernandez RN)1344 (Stopped - Provider: Jaime Hernandez RN) 0007 ($ New Bag/Syringe - Provider: Kecia Trevizo RN)0131 (Stopped - Provider: Kecia Trevizo RN)1207 (Not Administered - Provider: Sonia Ni RN - Reason: Discontinued by physician) vancomycin (Vancocin) 1,750 mg in 500 mL NaCl IVPB 1,750 mg, at 285.71 mL/hr, Intravenous, EVERY 24 HOURS, First dose (after last modification) on Wed04/01/21 at 0500, Until Discontinued, Indication for anti-infective therapy: Suspected infection, Site of anti-infective therapy: Other, Other site of infection (free text): sepsis unknown origin 0539 ($ New Bag/Syringe - Provider: Elke Martinez RN)0800 (Stopped - Provider: Sonia Ni, AIDA) PRN Medication Order 03/30/2021 03/31/2021 04/01/2021 0.9% NaCl injection 1-10 mL(Linked Group 1) 1-10 mL, Intracatheter, PRN, Other, peripheral line flush, Starting on Wed03/23/21 at 1314, Until Wed04/01/21 at 2042, Flush peripheral IV catheter with 1-10 mL of normal saline before and after medications and prn to clear blood from the line or to verify patency. fentaNYL (PF) (Sublimaze) injection 50 mcg (CANCELED) 50 mcg, Intravenous, EVERY 4 HOURS PRN, Severe Pain, only if uncontrolled by PO oxycodone, Starting on Wed03/26/21 at 1145, Until Wed03/30/21 at 1224 0142 ($ Given - Provider: Kecia Trevizo RN)0641 ($ Given - Provider: Tierra Gordon, AIDA) labetalol (Normodyne; Trandate) injection 10 mg 10 mg, Intravenous, EVERY 4 HOURS PRN, SBP greater than 170 mmHg, Starting on Wed03/25/21 at 1719, Until Wed04/01/21 at 2041, Max IV dose is 300mg/24 hours. LORazepam (Ativan) injection 2 mg (CANCELED) 2 mg, Intravenous, EVERY 4 HOURS PRN, Seizures, Neuro storming symptoms (tachycardia, hypertension, posturing), Starting on Wed03/29/21 at 0911, Until Wed03/30/21 at 0917 0234 ($ Given - Provider: Kecia Trevizo RN - Comment: neuro storm.)0627 ($ Given - Provider: Maggie So RN) oxyCODONE (immediate release) (Roxicodone) tablet 5 mg (CANCELED) 5 mg, Enteral Tube, EVERY 4 HOURS PRN, Moderate Pain, Severe Pain, Starting on Wed03/26/21 at 1138, Until Wed03/30/21 at 0917 0236 ($ Given - Provider: Kecia Trevizo RN)0842 ($ Given - Provider: Jaime Hernandez RN) scopolamine (Transderm-Scop) 1 patch(Linked Group 2) 1 patch, Administer over 72 Hours, EVERY 72 HOURS PRN, Nausea/Vomiting, Starting on Wed03/29/21 at 0040, Until Wed04/01/21 at 2042, Apply patch behind the ear, do not cut patch, only 1 patch should be worn at a time and remove old patch before applying new patch.This patch may contain metal and is not compatible with MRI. Notify radiology of patch location upon arrival to MRI. Each patch contains 1.5 mg scopolamine base and is formulated to deliver 1 mg of scopolamine over 72 hours. 0241 (Removed - Prov ider: Elke Martinez RN)0722 ($ Applied - Provider: Elke Martinez RN)194 (Due: Removed - Provider: Generic, Auto Release - Comment: Time automatically adjusted from order being discontinued) Linked Groups Order Group 1: SALINE LOCK, INSERT AND MAINTAIN (CANCELED) Routine, CONTINUOUS, Starting on 03/23/21 at 1315, Until Specified, New collection, Task Completed: Yes And 0.9% NaCl injection 3 mLJump to med 3 mL, Intracatheter, EVERY 8 HOURS, First dose on Wed03/23/21 at 1400, Until Discontinued, Flush peripheral IV catheter with 3 mL of normal saline every 8 hours. And 0.9% NaCl injection 1-10 mLJump to med 1-10 mL, Intracatheter, PRN, Other, peripheral line flush, Starting on 03/23/21 at 1314, Until Wed04/01/21 at 2041, Flush peripheral IV catheter with 1-10 mL of normal saline before and after medications and prn to clear blood from the line or to verify patency. Group 2: scopolamine (Transderm-Scop) 1 patchJump to med 1 patch, Administer over 72 Hours, EVERY 72 HOURS PRN, Nausea/Vomiting, Starting on 03/29/21 at 0040, Until Wed04/01/21 at 2041, Apply patch behind the ear, do not cut patch, only 1 patch should be worn at a time and remove old patch before applying new patch.This patch may contain metal and is not compatible with MRI. Notify radiology of patch location upon arrival to MRI. Each patch contains 1.5 mg scopolamine base and is formulated to deliver 1 mg of scopolamine over 72 hours. And scopolamine patch placement confirmationJump to med Transdermal, 2 TIMES DAILY, First dose on 03/29/21 at 0045, Until Discontinued, Patient has a patch to be confirmed on transition to inpatient and 2 times daily. 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
--- OUTSIDE RECORDS SUMMARY | 2024-05-23 03:22 | XMS_ITS | Encounter Summary ---
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 0.82(H) 0.00 - 0.47 10? 3 /uL 03/11/2021 12:07 AM [facility] Basophils Absolute 0.04 0.00 - 0.08 10? 3 /uL 03/11/2021 12:07 AM [facility] Immature Granulocytes % 1.5(H) 0.0 - 1.0 % 03/11/2021 12:07 AM [facility] Immature Granulocytes Absolute 0.30 03/11/2021 12:07 AM [facility] Blood BLOOD SPECIMEN / Unknown Venipuncture / Unknown 03/10/2021 11:51 PM CDT 03/11/2021 12:03 AM CDT Fredy Felipe MD LAB - HEMATOLOGY ORD ERABLES [facility] [address] [place] [address], [facility] [phone] * (ABNORMAL) BASIC METABOLIC PANEL (CALCIUM TOTAL) (03/10/2021 11:51 PM CDT) BUN 34(H) 7 - 26 mg/dL 03/11/2021 12:25 AM [facility] Creatinine 1.54(H) 0.71 - 1.16 mg/dL 03/11/2021 12:25 AM [facility] Sodium 142 136 - 145 mmol/L 03/11/2021 12:25 AM [facility] Potassium 4.2 3.5 - 4.5 mmol/L 03/11/2021 12:25 AM [facility] Chloride 110(H) 98 - 107 mmol/L 03/11/2021 12:25 AM [facility] CO2 20(L) 22 - 29 mmol/L 03/11/2021 12:25 AM [facility] Glucose 134(H) 70 - 115 mg/dL 03/11/2021 12:25 AM CDT [facility] Calcium 9.1 8.4 - 10.2 mg/dL 03/11/2021 12:25 AM [facility] Anion Gap 16 8 - 18 03/11/2021 12:25 AM [facility] BUN/Creatinine Ratio 22 7 - 23 03/11/2021 12:25 AM [facility] Osmolality Calculated 304(H) 270 - 300 mOsm/kg 03/11/2021 12:25 AM [facility] eGFR by CKD-EPI 58(L) >=90 mL/min/1.7 3 m2 03/11/2021 12:25 AM T [facility] Blood BLOOD SPECIMEN / Unknown Venipuncture / Unknown 03/10/2021 11:51 PM CDT 03/11/2021 12:03 AM CDT Fredy Felipe MD LAB - CHEMISTRY JOSE ENRIQUE VELA [address] [address], [facility] [phone] * PHOSPHORUS BLOOD (03/10/2021 11:51 PM CDT) Phosphorus 4.0 2.8 - 5.1 mg/dL 03/11/2021 12:25 AM T [facility] Blood BLOOD SPECIMEN / Unknown Venipuncture / Unknown 03/10/2021 11:51 PM CDT 03/11/2021 12:03 AM CDT Fredy Felipe MD LAB - CHEMISTRY JOSE ENRIQUE VELA [address] [address], [facility] [phone] * MAGNESIUM BLOOD (03/10/2021 11:51 PM CDT) Magnesium 2.1 1.6 - 2.6 mg/dL 03/11/2021 12:25 AM T [facility] Blood BLOOD SPECIMEN / Unknown Venipuncture / Unknown 03/10/2021 11:51 PM CDT 03/11/2021 12:03 AM CDT Fredy Felipe MD LAB - CHEMISTRY JOSE ENRIQUE VELA Performing Organization Address [facility]/ZIP Co de Phone Number [address] [address], [facility] [phone] * (ABNORMAL) CALCIUM IONIZED WHOLE BLOOD (03/10/2021 11:51 PM CDT) Calcium Ionized 1.20 mmol/L 03/11/2021 12:01 AM CDT [facility] pH 7.36 7.35 - 7.45 pH 03/11/2021 12:01 AM CDT [facility] Ionized Calcium pH Adjusted 1.18(L) 1.19 - 1.34 mmol/L 03/11/2021 12:01 AM CDT [facility] Blood BLOOD SPECIMEN / Unknown Venipuncture / Unknown 03/10/2021 11:51 PM CDT 03/10/2021 11:57 PM CDT Fredy Felipe MD LAB - CHEMISTRY JOSE ENRIQUE VELA Performing Organization Address City/[facility]/ZIP Co de Phone Number [address] [address], [facility] [phone] * (ABNORMAL) BLOOD GASES ART + COOX PANEL (03/10/2021 12:48 AM CDT) pH Arterial 7.48(H) 7.35 - 7.45 pH 03/10/2021 12:53 AM CDT [facility] pO2 Arterial 161(H) 80 - 100 mmHg 03/10/2021 12:53 AM CDT [facility] pCO2 Arterial 25(L) 35 - 45 mmHg 12:53 AM CDT [facility] HCO3 Arterial 19(L) 20 - 30 mmol/l 03/10/2021 12:53 AM CDT [facility] BE Arterial -3.7(L) -2.0 - 2.0 mmol/L 03/10/2021 12:53 AM [facility] Oxyhemoglobin Arterial 96.3 % 03/10/2021 12:53 AM [facility] Dexoyhemoglobin (HHB) % 0.5 % 03/10/2021 12:53 AM [facility] Methemoglobin 1.1 0.0 - 2.0 % 03/10/2021 12:53 AM [facility] Carboxyhemoglobin 2.1(H) 0.0 - 2.0 % 2020 12:53 AM [facility] O2 Content Arterial 14.6 Interpret within clinical context mg/dL 03/10/2021 12:53 AM [facility] Hemoglobin by COOX 10.5(L) 12.0 - 17.6 g/dL 03/10/2021 12:53 AM [facility] O2 Saturation Arterial 100 90 - 100 % 03/10/2021 12:53 AM [facility] FI O2 Arterial 30.0 % 03/10/2021 12:53 AM [facility] Blood, arterial ARTERIAL BLOOD SPECIMEN / Unknown Arterial Puncture / Unknown 03/10/2021 12:48 AM T 03/10/2021 12:50 AM [facility] - 03/10/2021 12:53 AM [facility] Carboxyhemoglobin Normal Concentration: Non-smokers: 0-2%; Smokers: 0-9%; Toxic: >20% Fredy Felipe MD LAB - BLOOD GASES OR DERABLES Performing Organization Address [facility] Co de Phone Number [facility] [address] [place] [phone] [phone] * (ABNORMAL) CALCIUM IONIZED WHOLE BLOOD (03/10/2021 12:48 AM [facility]) Calcium Ionized 1.17 mmol/L 03/10/2021 12:54 AM [facility] pH 7.50(H) 7.35 - 7.45 pH 03/10/2021 12:54 AM [facility] Ionized Calcium pH Adjusted 1.22 1.19 - 1.34 mmol/L 03/10/2021 12:54 AM [facility] Blood BLOOD SPECIMEN / Unknown Venipuncture / Unknown 03/10/2021 12:48 AM CDT 03/10/2021 12:50 AM CDT Fredy Felipe MD LAB - CHEMISTRY JOSE ENRIQUE VELA [facility] Organization Address City/State/ZIP Co de Phone Number [facility] [address] [place] [address], [facility] [phone] * (ABNORMAL) DIFFERENTIAL MANUAL (03/10/2021 12:08 AM CDT) WBC (corrected for NRBC) 22.6 10? 3 /uL 03/10/2021 2:05 AM [facility] Total Cell Count 100 03/10/2021 2:05 AM [facility] Neutrophils Absolute Manual 18.53(H) 1.60 - 7.00 10? 3 /uL 03/10/2021 2:05 AM [facility] Comment:(BANDS+SEGS) x WBC = NEUT # (ANC) Lymphocyte Absolute Manual 1.36 1.10 - 3.90 10? 3 /uL 03/10/2021 2:05 AM [facility] Monocytes Absolute Manual 1.81(H) 0.26 - 1.07 10? 3 /uL 03/10/2021 2:05 AM [facility] Eosinophils Absolute Manual 0.68(H) 0.00 - 0.47 10? 3 /uL 03/10/2021 2:05 AM [facility] Basophil Absolute Manual 0.23(H) 0.00 - 0.08 10? 3 /uL 03/10/2021 2:05 AM [facility] Band % Manual 2 0 - 10 % 03/10/2021 2:05 AM [facility] Neutrophil % Manual 80(H) 35 - 70 % 03/10/2021 2:05 AM [facility] Lymphocyte % Manual 6(L) 20 - 43 % 03/10/2021 2:05 AM [facility] Monocytes % Manual 8 5 - 13 % 03/10/2021 2:05 AM [facility] Eosinophils % Manual 3 0 - 6 % 03/10/2021 2:05 AM [facility] Basophils % Manual 1 0 - 2 % 03/10/2021 2:05 AM [facility] Platelet Estimate Increased( A) Adequate 03/10/2021 2:05 AM [facility] RBC Morphology Normal 03/10/2021 2:05 AM [facility] Blood BLOOD SPECIMEN / Unknown Venipuncture / Unknown 03/10/2021 12:08 AM CDT 03/10/2021 12:23 AM CDT Fredy Felipe MD LAB - HEMATOLOGY ORD ERABLES [facility] [address] [place] [address], [facility] [phone] * (ABNORMAL) CBC W AUTO DIFFERENTIAL (03/10/2021 12:08 AM CDT) WBC 22.6(H) 3.5 - 10.5 10? 3 /uL 03/10/2021 12:33 AM [facility] RBC 3.57(L) 4.30 - 5.70 10? 6 /uL 03/10/2021 12:33 AM [facility] Hemoglobin 9.7(L) 12.0 - 17.6 g/dL 03/10/2021 12:33 AM [facility] Hematocrit 31.0(L) 35.2 - 51.7 % 03/10/2021 12:33 AM [facility] MCV 86.8 80.7 - 98.3 fL 03/10/2021 12:33 AM [facility] MCH 27.2 26.7 - 34.0 pg 03/10/2021 12:33 AM [facility] MCHC 31.3 30.8 - 35.9 g/dL 03/10/2021 12:33 AM [facility] Platelet Count 516(H) 150 - 400 10? 3 /uL 03/10/2021 12:33 AM [facility] RDW-SD 42.9 36.0 - 50.0 fL 03/10/2021 12:33 AM [facility] RDW-CV 13.8 11.2 - 14.8 % 03/10/2021 12:33 AM [facility] MPV 9.8 9.4 - 12.9 fL 03/10/2021 12:33 AM [facility] nRBC Absolute 0.00 0 10? 3 /uL 03/10/2021 12:33 AM [facility] nRBC Auto 0.0 0 /100 WBC 03/10/2021 12:33 AM [facility] Blood BLOOD SPECIMEN / Unknown Venipuncture / Unknown 03/10/2021 12:08 AM CDT 03/10/2021 12:23 AM T Fredy Felipe MD LAB - HEMATOLOGY ORD ERABLES [facility] [address] [place] [address], [facility] [phone] * (ABNORMAL) BASIC METABOLIC PANEL (CALCIUM TOTAL) (03/10/2021 12:08 AM CDT) BUN 38(H) 7 - 26 mg/dL 03/10/2021 12:46 AM [facility] Creatinine 1.65(H) 0.71 - 1.16 mg/dL 03/10/2021 12:46 AM [facility] Sodium 142 136 - 145 mmol/L 03/10/2021 12:46 AM [facility] Potassium 4.3 3.5 - 4.5 mmol/L 03/10/2021 12:46 AM [facility] Chloride 111(H) 98 - 107 mmol/L 03/10/2021 12:46 AM [facility] CO2 18(L) 22 - 29 mmol/L 03/10/2021 12:46 AM [facility] Glucose 156(H) 70 - 115 mg/dL 03/10/2021 12:46 AM [facility] Calcium 8.8 8.4 - 10.2 mg/dL 03/10/2021 12:46 AM [facility] Anion Gap 17 8 - 18 03/10/2021 12:46 AM CDT [facility] BUN/Creatinine Ratio 23 7 - 23 03/10/2021 12:46 AM CDT [facility] Osmolality Calculated 306(H) 270 - 300 mOsm/kg 03/10/2021 12:46 AM CDT [facility] eGFR by CKD-EPI 53(L) >=90 mL/min/1.7 3 m2 03/10/2021 12:46 AM CDT [facility] Blood BLOOD SPECIMEN / Unknown Venipuncture / Unknown 03/10/2021 12:08 AM CDT 03/10/2021 12:23 AM CDT Fredy Felipe MD LAB - CHEMISTRY JOSE ENRIQUE VELA [facility] [address] [place] [address], [place] [phone] * PHOSPHORUS BLOOD (03/10/2021 12:08 AM CDT) Phosphorus 4.0 2.8 - 5.1 mg/dL 03/10/2021 12:46 AM CDT [facility] Blood BLOOD SPECIMEN / Unknown Venipuncture / Unknown 03/10/2021 12:08 AM CDT 03/10/2021 12:23 AM CDT Fredy Felipe MD LAB - CHEMISTRY JOSE ENRIQUE VELA [address] [address], [place] [phone] * MAGNESIUM BLOOD (03/10/2021 12:08 AM CDT) Magnesium 2.2 1.6 - 2.6 mg/dL 03/10/2021 12:46 AM CDT [facility] Blood BLOOD SPECIMEN / Unknown Venipuncture / Unknown 03/10/2021 12:08 AM CDT 03/10/2021 12:23 AM CDT Fredy Felipe MD LAB - CHEMISTRY JOSE ENRIQUE VELA [facility] [address] [place] [address], [place] [phone] * VANCOMYCIN LEVEL RANDOM (03/09/2021 6:26 AM CDT) Vancomycin Random 19.6 Therapeutic Ranges not established for random specimens ug/mL 03/09/2021 6:56 AM CDT [facility] Blood BLOOD SPECIMEN / Unknown Venipuncture / Unknown 03/09/2021 6:26 AM CDT 03/09/2021 6:34 AM CDT Narrative [facility] - 03/09/2021 6:56 AM CDT See institution protocol. Fredy Felipe MD LAB - CHEMISTRY JOSE ENRIQUE VELA [address] [address], [facility] [phone] * XR CHEST 1VW PORTABLE (03/09/2021 6:08 AM CDT) Anatomical Region Laterality Modality Chest Radiographic Sera ging 03/09/2021 11:3 1 AM CDT Impressions 03/09/2021 12:04 PM CDT FINDINGS/IMPRESSION: Tracheostomy tube terminates in the midthoracic trachea. Low lung volumes with probable vascular crowding. Patchy linear opacities may represent pulmonary edema versus atypical infection. There is no pleural effusion or pneumothorax. The cardiomediastinal silhouette is stable. Report dictated by Cyndi Carter MD (residential leasing manager). I, Dr. NENA CLEMENTE have personally reviewed and interpreted this examination/study. This report was electronically signed by NENA CLEMENTE ??on 03/09/2021 12:04 PM . Narrative 03/09/2021 12:04 PM CDT EXAMINATION: XR CHEST 1VW PORTABLE, 03/09/2021 6:08 AM HISTORY: T88.4XXA: Difficult airway for intubation, initial encounter COMPARISON: 03/08/2021 Procedure Note Nena Clemente DO - 03/09/2021 EXAMINATION: XR CHEST 1VW PORTABLE, 03/09/2021 6:08 AM HISTORY: T88.4XXA: Difficult airway for intubation, initial encounter COMPARISON: 03/08/2021 FINDINGS/IMPRESSION: Tracheostomy tube terminates in the midthoracic trachea. Low lung volumes with probable vascular crowding. Patchy linearopacities may represent pulmonary edema versus atypical infection. There is no pleural effusion or pneumothorax. The cardiomediastinal silhouette is stable. Report dictated by Cyndi Carter MD (residential leasing manager). I, Dr. NENA CLEMENTE have personally reviewed and interpreted this examination/study. This report was electronically signed by NENA CLEMENTE on 03/09/2021 12:04 PM . Fredy Felipe MD DIAGNOSTIC IMAGING O RDERABLES * (ABNORMAL) DIFFERENTIAL MANUAL (03/09/2021 12:18 AM CDT) WBC (corrected for NRBC) 24.1 10? 3 /uL 03/09/2021 2:04 AM [facility] Total Cell Count 100 03/09/20 21 2:04 AM [facility] Neutrophils Absolute Manual 19.76(H) 1.60 - 7.00 10? 3 /uL 03/09/2021 2:04 AM [facility] Comment:(BANDS+SEGS) x WBC = NEUT # (ANC) Lymphocyte Absolute Manual 1.69 1.10 - 3.90 10? 3 /uL 03/09/2021 2:04 AM [facility] Monocytes Absolute Manual 1.69(H) 0.26 - 1.07 10? 3 /uL 03/09/2021 2:04 AM [facility] Eosinophils Absolute Manual 0.72(H) 0.00 - 0.47 10? 3 /uL 03/09/2021 2:04 AM [facility] Neutrophil % Manual 82(H) 35 - 70 % 03/09/2021 2:04 AM [facility] Lymphocyte % Manual 7(L) 20 - 43 % 03/09/2021 2:04 AM [facility] Monocytes % Manual 7 5 - 13 % 03/09/2021 2:04 AM CDT [facility] Eosinophils % Manual 3 0 - 6 % 03/09/2021 2:04 AM [facility] Metamyelocyte % Manual 1(H) 0 % 03/09/2021 2:04 AM [facility] Platelet Estimate Increased( A) Adequate 03/09/2021 2:04 AM [facility] RBC Morphology Normal 03/09/2021 2:04 AM [facility] Blood BLOOD SPECIMEN / Unknown Venipuncture / Unknown 03/09/2021 12:18 AM CDT 03/09/2021 12:28 AM CDT Fredy Felipe MD LAB - HEMATOLOGY ORD ERABLES [facility] [address] [place] [phone], [facility] [phone] * (ABNORMAL) CBC W AUTO DIFFERENTIAL (03/09/2021 12:18 AM CDT) WBC 24.1(H) 3.5 - 10.5 10? 3 /uL 03/09/2021 12:36 AM [facility] RBC 3.61(L) 4.30 - 5.70 10? 6 /uL 03/09/2021 12:36 AM [facility] Hemoglobin 9.8(L) 12.0 - 17.6 g/dL 03/09/2021 12:36 AM [facility] Hematocrit 31.0(L) 35.2 - 51.7 % 03/09/2021 12:36 AM [facility] MCV 85.9 80.7 - 98.3 fL 03/09/2021 12:36 AM [facility] MCH 27.1 26.7 - 34.0 pg 03/09/2021 12:36 AM [facility] MCHC 31.6 30.8 - 35.9 g/dL 03/09/2021 12:36 AM [facility] Platelet Count 541(H) 150 - 400 10? 3 /uL 03/09/2021 12:36 AM [facility] RDW-SD 43.3 36.0 - 50.0 fL 03/09/2021 12:36 AM [facility] RDW-CV 13.9 11.2 - 14.8 % 03/09/2021 12:36 AM [facility] MPV 9.5 9.4 - 12.9 fL 03/09/2021 12:36 AM [facility] nRBC Absolute 0.00 0 10? 3 /uL 03/09/2021 12:36 AM [facility] nRBC Auto 0.0 0 /100 WBC 03/09/2021 12:36 AM [facility] Blood BLOOD SPECIMEN / Unknown Venipuncture / Unknown 03/09/2021 12:18 AM CDT 03/09/2021 12:28 AM T Fredy Felipe MD LAB - HEMATOLOGY ORD ERABLES [facility] [address] [place] [address], [facility] [phone] * (ABNORMAL) BASIC METABOLIC PANEL (CALCIUM TOTAL) (03/09/2021 12:18 AM CDT) BUN 34(H) 7 - 26 mg/dL 03/09/2021 12:53 AM [facility] Creatinine 1.67(H) 0.71 - 1.16 mg/dL 03/09/2021 12:53 AM [facility] Sodium 145 136 - 145 mmol/L 03/09/2021 12:53 AM [facility] Potassium 4.4 3.5 - 4.5 mmol/L 03/09/2021 12:53 AM [facility] Chloride 114(H) 98 - 107 mmol/L 03/09/2021 12:53 AM [facility] CO2 18(L) 22 - 29 mmol/L 03/09/2021 12:53 AM [facility] Glucose 146(H) 70 - 115 mg/dL 03/09/2021 12:53 AM [facility] Calcium 9.0 8.4 - 10.2 mg/dL 03/09/2021 12:53 AM [facility] Anion Gap 17 8 - 18 03/09/2021 12:53 AM [facility] BUN/Creatinine Ratio 20 7 - 23 03/09/2021 12:53 AM [facility] Osmolality Calculated 310(H) 270 - 300 mOsm/kg 03/09/2021 12:53 AM [facility] eGFR by CKD-EPI 52(L) >=90 mL/min/1.7 3 m2 03/09/2021 12:53 AM [facility] Blood BLOOD SPECIMEN / Unknown Venipuncture / Unknown 03/09/2021 12:18 AM CDT 03/09/2021 12:28 AM T Fredy Felipe MD LAB - CHEMISTRY JOSE ENRIQUE VELA [facility] Organization Address City/State/ZIP Co de Phone Number [facility] [address] [place] [address], [facility] [phone] * (ABNORMAL) BLOOD GASES ART + COOX PANEL (03/09/2021 12:18 AM [facility]) pH Arterial 7.47(H) 7.35 - 7.45 pH 03/09/2021 12:32 AM [facility] pO2 Arterial 94 80 - 100 mmHg 03/09/2021 12:32 AM [facility] pCO2 Arterial 27(L) 35 - 45 mmHg 12:32 AM [facility] HCO3 Arterial 20 20 - 30 mmol/l 03/09/2021 12:32 AM [facility] BE Arterial -2.9(L) -2.0 - 2.0 mmol/L 03/09/2021 12:32 AM [facility] Oxyhemoglobin Arterial 95.9 % 03/09/2021 12:32 AM [facility] Dexoyhemoglobin (HHB) % 1.0 % 03/09/2021 12:32 AM [facility] Methemoglobin 1.0 0.0 - 2.0 % 03/09/2021 12:32 AM [facility] Carboxyhemoglobin 2.2(H) 0.0 - 2.0 % 2020 12:32 AM [facility] O2 Content Arterial 15.1 Interpret within clinical context mg/dL 03/09/2021 12:32 AM T [facility] Hemoglobin by COOX 11.1(L) 12.0 - 17.6 g/dL 03/09/2021 12:32 AM T [facility] O2 Saturation Arterial 99 90 - 100 % 03/09/2021 12:32 AM CDT [facility] FI O2 Arterial 21.0 % 03/09/2021 12:32 AM CDT [facility] Blood, arterial ARTERIAL BLOOD SPECIMEN / Unknown Arterial Puncture / Unknown 03/09/2021 12:18 AM CDT 03/09/2021 12:25 AM CDT Narrative [facility] - 03/09/2021 12:32 AM CDT Carboxyhemoglobin Normal Concentration: Non-smokers: 0-2%; Smokers: 0-9%; Toxic: >20% Fredy Felipe MD LAB - BLOOD GASES OR DERABLES [address] [address], [facility] [phone] * PHOSPHORUS BLOOD (03/09/2021 12:18 AM CDT) Phosphorus 3.7 2.8 - 5.1 mg/dL 03/09/2021 12:53 AM CDT [facility] Blood BLOOD SPECIMEN / Unknown Venipuncture / Unknown 03/09/2021 12:18 AM CDT 03/09/2021 12:28 AM CDT Fredy Felipe MD LAB - CHEMISTRY ORDE RABLES [address] [address], [facility] [phone] * MAGNESIUM BLOOD (03/09/2021 12:18 AM CDT) Magnesium 2.3 1.6 - 2.6 mg/dL 03/09/2021 12:53 AM CDT [facility] Blood BLOOD SPECIMEN / Unknown Venipuncture / Unknown 03/09/2021 12:18 AM CDT 03/09/2021 12:28 AM CDT Fredy Felipe MD LAB - CHEMISTRY JOSE ENRIQUE VELA [address] [address], [facility] [phone] * (ABNORMAL) CALCIUM IONIZED WHOLE BLOOD (03/09/2021 12:18 AM CDT) Calcium Ionized 1.17 mmol/L 03/09/2021 12:31 AM CDT [facility] pH 7.47(H) 7.35 - 7.45 pH 03/09/2021 12:31 AM CDT [facility] Ionized Calcium pH Adjusted 1.20 1.19 - 1.34 mmol/L 03/09/2021 12:31 AM CDT [facility] Blood BLOOD SPECIMEN / Unknown Venipuncture / Unknown 03/09/2021 12:18 AM CDT 03/09/2021 12:25 AM CDT Fredy Felipe MD LAB - CHEMISTRY JOSE ENRIQUE VELA Performing Organization Address [facility]/ZIP Co de Phone Number [address] [address], [place] [phone] * VANCOMYCIN LEVEL RANDOM (03/08/2021 5:30 PM CDT) Vancomycin Random 32.6 Therapeutic Ranges not established for random specimens ug/mL 03/08/2021 5:57 PM CDT [facility] Blood BLOOD SPECIMEN / Unknown Venipuncture / Unknown 03/08/2021 5:30 PM CDT 03/08/2021 5:36 PM CDT Narrative [facility] - 03/08/2021 5:57 PM CDT See institution protocol. Fredy Felipe MD LAB - CHEMISTRY JOSE ENRIQUE VELA [address] [address] [phone] * XR CHEST 1VW PORTABLE (03/08/2021 5:50 AM CDT) Anatomical Region Laterality Modality Chest Radiographic Sera ging 03/08/2021 5:37 AM CDT Impressions 03/09/2021 11:30 AM CDT FINDINGS/IMPRESSION: Lines and tubes: *A tracheostomy tube terminates in mid thoracic trachea. There are low bilateral lung volumes with associated bronchovascular crowding. There are patchy linear bibasilar opacities, likely representing atelectasis. There is no pleural effusion or pneumothorax. The cardiomediastinal silhouette is stable. Dictated by Phan Brothers MD (residential leasing manager). IDr. NENA have personally reviewed and interpreted this examination/study. This report was electronically signed by NENA CLEMENTE ??on 03/09/2021 11:30 AM . Narrative 03/09/2021 11:30 AM CDT EXAMINATION: XR CHEST 1VW PORTABLE HISTORY: T14.90XA: Trauma COMPARISON: Chest x-ray dated 03/07/2021. Procedure Note Nena Clemente DO - 03/09/2021 EXAMINATION: XR CHEST 1VW PORTABLE HISTORY: T14.90XA: Trauma COMPARISON: Chest x-ray dated 03/07/2021. FINDINGS/IMPRESSION: Lines and tubes: *A tracheostomy tube terminates in mid thoracic trachea. There are low bilateral lung volumes with associated bronchovascular crowding. There are patchy linear bibasilar opacities, likelyrepresenting atelectasis. There is no pleural effusion or pneumothorax. The cardiomediastinal silhouette is stable. Dictated by Phan Brothers MD (residential leasing manager). Dr. NENA Yao have personally reviewed and interpreted this examination/study. This report was electronically signed by NENA CLEMENTE on 03/09/2021 11:30 AM . Fredy Felipe MD DIAGNOSTIC IMAGING O RDERABLES * (ABNORMAL) DIFFERENTIAL MANUAL (03/07/2021 11:57 PM CDT) WBC (corrected for NRBC) 22.8 10? 3 /uL 03/08/2021 2:26 AM [facility] Total Cell Count 100 03/08/2021 2:26 AM [facility] Neutrophils Absolute Manual 18.24(H) 1.60 - 7.00 10? 3 /uL 03/08/2021 2:26 AM [facility] Comment:(BANDS+SEGS) x WBC = NEUT # (ANC) Lymphocyte Absolute Manual 1.60 1.10 - 3.90 10? 3 /uL 03/08/2021 2:26 AM [facility] Monocytes Absolute Manual 1.60(H) 0.26 - 1.07 10? 3 /uL 03/08/2021 2:26 AM [facility] Eosinophils Absolute Manual 0.68(H) 0.00 - 0.47 10? 3 /uL 03/08/2021 2:26 AM [facility] Basophil Absolute Manual 0.23(H) 0.00 - 0.08 10? 3 /uL 03/08/2021 2:26 AM [facility] Neutrophil % Manual 80(H) 35 - 70 % 03/08/2021 2:26 AM [facility] Lymphocyte % Manual 7(L) 20 - 43 % 03/08/2021 2:26 AM [facility] Monocytes % Manual 7 5 - 13 % 03/08/2021 2:26 AM [facility] Eosinophils % Manual 3 0 - 6 % 03/08/2021 2:26 AM [facility] Basophils % Manual 1 0 - 2 % 03/08/2021 2:26 AM [facility] Atypical Lymphocyte % Manual 2(H) 0 % 03/08/2021 2:26 AM [facility] Platelet Estimate Adequate Adequate 03/08/2021 2:26 AM [facility] RBC Morphology Normal 03/08/2021 2:26 AM [facility] Blood BLOOD SPECIMEN / Unknown Venipuncture / Unknown 03/07/2021 11:57 PM CDT 03/08/2021 12:23 AM T Fredy Felipe MD LAB - HEMATOLOGY ORD ERABLES Performing Organization Address City/[facility]/ZIP Co de Phone Number [facility] [address] [place] [address], [facility] [phone] * (ABNORMAL) VANCOMYCIN LEVEL TROUGH (03/07/2021 11:57 PM CDT) Pathologist [facility] Vancomycin Trough 22.7(H) 10.0 - 20.0 ug/mL 03/08/2021 12:47 AM CDT [facility] Blood BLOOD SPECIMEN / Unknown Venipuncture / Unknown 03/07/2021 11:57 PM CDT 03/08/2021 12:23 AM CDT [facility] - 03/08/2021 12:47 AM CDT See institution protocol. Fredy Felipe MD LAB - CHEMISTRY JOSE ENRIQUE VELA Performing Organization Address [facility]/ZIP Co de Phone Number [facility] [address] [place] [phone], [facility] [phone] * (ABNORMAL) CBC W AUTO DIFFERENTIAL (03/07/2021 11:57 PM CDT) Pathologist [facility] WBC 22.8(H) 3.5 - 10.5 10? 3 /uL 03/08/2021 12:29 AM [facility] RBC 3.55(L) 4.30 - 5.70 10? 6 /uL 03/08/2021 12:29 AM [facility] Hemoglobin 9.7(L) 12.0 - 17.6 g/dL 03/08/2021 12:29 AM [facility] Hematocrit 30.4(L) 35.2 - 51.7 % 03/08/2021 12:29 AM [facility] MCV 85.6 80.7 - 98.3 fL 03/08/2021 12:29 AM [facility] MCH 27.3 26.7 - 34.0 pg 03/08/2021 12:29 AM [facility] MCHC 31.9 30.8 - 35.9 g/dL 03/08/2021 12:29 AM [facility] Platelet Count 535(H) 150 - 400 10? 3 /uL 03/08/2021 12:29 AM [facility] RDW-SD 43.0 36.0 - 50.0 fL 03/08/2021 12:29 AM [facility] RDW-CV 13.6 11.2 - 14.8 % 03/08/2021 12:29 AM [facility] MPV 9.4 9.4 - 12.9 fL 03/08/2021 12:29 AM [facility] nRBC Absolute 0.00 0 10? 3 /uL 03/08/2021 12:29 AM [facility] nRBC Auto 0.0 0 /100 WBC 03/08/2021 12:29 AM [facility] Blood BLOOD SPECIMEN / Unknown Venipuncture / Unknown 03/07/2021 11:57 PM CDT 03/08/2021 12:23 AM CDT Fredy Felipe MD LAB - HEMATOLOGY ORD ERABLES Performing Organization Address City/State/[facility] Co de Phone Number [facility] [address] [place] [address], [facility] [phone] * (ABNORMAL) BASIC METABOLIC PANEL (CALCIUM TOTAL) (03/07/2021 11:57 PM CDT) BUN 35(H) 7 - 26 mg/dL 03/08/2021 12:49 AM [facility] Creatinine 1.60(H) 0.71 - 1.16 mg/dL 03/08/2021 12:49 AM [facility] Sodium 144 136 - 145 mmol/L 03/08/2021 12:49 AM [facility] Potassium 4.0 3.5 - 4.5 mmol/L 03/08/2021 12:49 AM [facility] Chloride 113(H) 98 - 107 mmol/L 03/08/2021 12:49 AM [facility] CO2 20(L) 22 - 29 mmol/L 03/08/2021 12:49 AM [facility] Glucose 132(H) 70 - 115 mg/dL 03/08/2021 12:49 AM [facility] Calcium 9.1 8.4 - 10.2 mg/dL 03/08/2021 12:49 AM [facility] Anion Gap 15 8 - 18 03/08/2021 12:49 AM [facility] BUN/Creatinine Ratio 22 7 - 23 03/08/2021 12:49 AM [facility] Osmolality Calculated 308(H) 270 - 300 mOsm/kg 03/08/2021 12:49 AM [facility] eGFR by CKD-EPI 55(L) >=90 mL/min/1.7 3 m2 03/08/2021 12:49 AM [facility] Blood BLOOD SPECIMEN / Unknown Venipuncture / Unknown 03/07/2021 11:57 PM CDT 03/08/2021 12:23 AM CDT Fredy Felipe MD LAB - CHEMISTRY JOSE ENRIQUE VELA [facility] Organization Address City/State/ZIP Co de Phone Number [facility] [address] [place] [address], [facility] [phone] * (ABNORMAL) BLOOD GASES ART + COOX PANEL (03/07/2021 11:57 PM CDT) pH Arterial 7.50(H) 7.35 - 7.45 pH 03/08/2021 12:17 AM [facility] pO2 Arterial 183(H) 80 - 100 mmHg 03/08/2021 12:17 AM [facility] pCO2 Arterial 25(L) 35 - 45 mmHg 12:17 AM [facility] HCO3 Arterial 20 20 - 30 mmol/l 03/08/2021 12:17 AM [facility] BE Arterial -2.6(L) -2.0 - 2.0 mmol/L 03/08/2021 12:17 AM [facility] Oxyhemoglobin Arterial 96.5 % 03/08/2021 12:17 AM [facility] Dexoyhemoglobin (HHB) % 0.0 % 03/08/2021 12:17 AM [facility] Methemoglobin 1.1 0.0 - 2.0 % 03/08/2021 12:17 AM [facility] Carboxyhemoglobin 2.4(H) 0.0 - 2.0 % 2020 12:17 AM [facility] O2 Content Arterial 14.5 Interpret within clinical context mg/dL 03/08/2021 12:17 AM [facility] Hemoglobin by COOX 10.4(L) 12.0 - 17.6 g/dL 03/08/2021 12:17 AM [facility] O2 Saturation Arterial 100 90 - 100 % 03/08/2021 12:17 AM [facility] FI O2 Arterial 21.0 % 03/08/2021 12:17 AM [facility] Blood, arterial ARTERIAL BLOOD SPECIMEN / Unknown Arterial Puncture / Unknown 03/07/2021 11:57 PM CDT 03/08/2021 12:11 AM [facility] - 03/08/2021 12:17 AM [facility] Carboxyhemoglobin Normal Concentration: Non-smokers: 0-2%; Smokers: 0-9%; Toxic: >20% Fredy Felipe MD LAB - BLOOD GASES OR DERABLES [facility] [address] [place] [address], [facility] [phone] * (ABNORMAL) PT-INR [facility] (03/07/2021 11:57 PM CDT) PT 16.5(H) 12.1 - 14.8 Seconds 03/08/2021 12:37 AM [facility] INR 1.4 See Comment 03/08/2021 12:37 AM [facility] Comment:The suggested therap eutic range for standard coumadin (warfarin) therapy is an INR of 2.0-3.0. For high-risk patients (Mechanical Mitral Valve Prosthesis, etc.), the suggested prophylactic therapeutic range is an INR of 2.5-3.5. Blood BLOOD SPECIMEN / Unknown Venipuncture / Unknown 03/07/2021 11:57 PM CDT 03/08/2021 12:20 AM CDT Fredy Felipe MD LAB - COAGULATION OR DERABLES [address] [address], [place] [phone] * PHOSPHORUS BLOOD (03/07/2021 11:57 PM CDT) Phosphorus 3.0 2.8 - 5.1 mg/dL 03/08/2021 12:50 AM CDT [facility] Blood BLOOD SPECIMEN / Unknown Venipuncture / Unknown 03/07/2021 11:57 PM CDT 03/08/2021 12:23 AM CDT Fredy Felipe MD LAB - CHEMISTRY JOSE ENRIQUE VELA Performing Organization Address City/[facility]/ZIP Co de Phone Number [address] [address], [place] [phone] * MAGNESIUM BLOOD (03/07/2021 11:57 PM CDT) Magnesium 2.1 1.6 - 2.6 mg/dL 03/08/2021 12:50 AM CDT [facility] Blood BLOOD SPECIMEN / Unknown Venipuncture / Unknown 03/07/2021 11:57 PM CDT 03/08/2021 12:23 AM CDT Fredy Felipe MD LAB - CHEMISTRY JOSE ENRIQUE VELA [address] [address], [place] [phone] * (ABNORMAL) CALCIUM IONIZED WHOLE BLOOD (03/07/2021 11:57 PM CDT) Calcium Ionized 1.15 mmol/L 03/08/2021 12:17 AM CDT [facility] pH 7.49(H) 7.35 - 7.45 pH 03/08/2021 12:17 AM CDT [facility] Ionized Calcium pH Adjusted 1.19 1.19 - 1.34 mmol/L 03/08/2021 12:17 AM CDT [facility] Blood BLOOD SPECIMEN / Unknown Venipuncture / Unknown 03/07/2021 11:57 PM CDT 03/08/2021 12:11 AM CDT Fredy Felipe MD LAB - CHEMISTRY JOSE ENRIQUE VELA [facility] Organization Address City/State/ZIP Co de Phone Number [facility] [address] [place] [address], [facility] [phone] * XR CHEST 1VW PORTABLE (03/07/2021 4:51 AM CDT) Anatomical Region Laterality Modality Chest Radiographic Sera ging 03/07/2021 10:2 2 AM CDT Impressions 03/07/2021 2:51 PM CDT IMPRESSION: 1.Mild right midlung and lower lung atelectasis. Report drafted by Keo Hernandez M.D. (resident) IDr. NAOMY MD, [facility] have personally reviewed and interpreted this examination/study. This report was electronically signed by NAOMY LAZO MD, CR ??on 03/07/2021 2:51 PM . Narrative 03/07/2021 2:51 PM CDT EXAMINATION: XR CHEST 1VW PORTABLE HISTORY: T14.90XA: Trauma COMPARISON: chest radiograph on 03/06/2021 FINDINGS: Tracheostomy tube is identified. There is mild right mid lung and lower lung atelectasis. No pleural effusion or pneumothorax is seen. The cardiomediastinal silhouette is normal. No acute fractures are seen. Procedure Note Naomy Lazo MD - 03/07/2021 EXAMINATION: XR CHEST 1VW PORTABLE HISTORY: T14.90XA: Trauma COMPARISON: chest radiograph on 03/06/2021 FINDINGS: Tracheostomy tube is identified. There is mild right mid lung and lower lung atelectasis. No pleural effusion or pneumothorax is seen. The cardiomediastinal silhouette is normal. No acute fractures are seen. IMPRESSION: 1.Mild right midlung and lower lung atelectasis. Report drafted by Keo Hernandez M.D. (resident) IDr. NAOMY LAZO MD, [facility] have personally reviewedand interpreted this examination/study. This report was electronically signed by NAOMY LAZO MD, [facility] on 03/07/2021 2:51 PM . Fredy Felipe MD DIAGNOSTIC IMAGING O RDERABLES * (ABNORMAL) CULTURE ANAEROBE (03/07/2021 2:41 AM CDT) Culture Heavy Prevotella bivia(A) [place] 03/11/2021 9:14 AM CDT [facility] Comment:Beta-lactamase posit elvira Microbiology ABDOMINAL ABSCESS / Unknown Collection / Unknown 03/07/2021 2:41 AM CDT 03/07/2021 2:45 AM CDT Dino RUSSELLC LAB - MICROBIOLOG Y ORDERABLES Performing Organization Address City/[facility]/ZIP Co de Phone Number [facility] [address] [place] [address], [facility] [phone] * CULTURE FUNGUS OTHER+FUNGUS SMEAR (03/07/2021 2:41 AM CDT) Culture No fungus isolated [place] 03/31/2021 9:21 AM DRAWER IN [employer] [facility] Fungus Stain No yeast or hyphae seen 03/31/2021 9:21 AM [facility] Microbiology ABDOMINAL ABSCESS / Unknown Collection / Unknown 03/07/2021 2:41 AM CDT 03/07/2021 2:45 AM CDT Dino MORIN-C LAB - MICROBIOLOG Y ORDERABLES Performing Organization Address City/[facility]/ZIP Co de Phone Number [facility] [address] [place] [address], [facility] [phone] * (ABNORMAL) CULTURE WOUND+GRAM STAIN (03/07/2021 2:41 AM CDT) Culture Heavy Staphylococcus lugdunensis(A) [place] 03/10/2021 7:16 AM CDT [facility] Culture Heavy Klebsiella (formerly Enterobacter) aerogenes(A) [place] 03/10/2021 7:16 AM CDT [facility] Culture Heavy Staphylococcus epidermidis(A) 03/10/2021 7:16 AM CDT [facility] Gram Stain Light Polymorphonuclear cells 03/10/2021 7:16 AM CDT [facility] Gram Stain Light Gram-positive cocci in clusters 03/10/2021 7:16 AM CDT [facility] Gram Stain Moderate Gram-positive cocci pairs and chains 03/10/2021 7:16 AM CDT [facility] Microbiology ABDOMINAL ABSCESS / Unknown Collection / Unknown 03/07/2021 2:41 AM CDT 03/07/2021 2:45 AM CDT [facility]WORK MICROBIOLOGY - 03/10/2021 7:16 AM CDT Enterobacter, [...] ug/mL: Susceptible Staphylococcus lugdunensis Trimethoprim- sulfamethoxa zole [place]A <=10 ug/mL: Susceptible Staphylococcus lugdunensis Vancomycin [place] [...] Hudson PA-C LAB - MICROBIOLOG Y ORDERABLES [facility] MICROBIOLOGY [address] [place] [address], [facility] [phone] * (ABNORMAL) BLOOD GASES ART + COOX PANEL (03/07/2021 12:29 AM T) pH Arterial 7.51(H) 7.35 - 7.45 pH 03/07/2021 12:41 AM [facility] pO2 Arterial 161(H) 80 - 100 mmHg 03/07/2021 12:41 AM [facility] pCO2 Arterial 21(L) 35 - 45 mmHg 12:41 AM [facility] HCO3 Arterial 17(L) 20 - 30 mmol/l 03/07/2021 12:41 AM [facility] BE Arterial -4.5(L) -2.0 - 2.0 mmol/L 03/07/2021 12:41 AM [facility] Oxyhemoglobin Arterial 97.0 % 03/07/2021 12:41 AM [facility] Dexoyhemoglobin (HHB) % 0.1 % 03/07/2021 12:41 AM [facility] Methemoglobin 1.1 0.0 - 2.0 % 03/07/2021 12:41 AM [facility] Carboxyhemoglobin 1.8 0.0 - 2.0 % 2020 12:41 AM [facility] O2 Content Arterial 15.6 Interpret within clinical context mg/dL 03/07/2021 12:41 AM [facility] Hemoglobin by COOX 11.2(L) 12.0 - 17.6 g/dL 03/07/2021 12:41 AM [facility] O2 Saturation Arterial 100 90 - 100 % 03/07/2021 12:41 AM [facility] FI O2 Arterial 40.0 % 03/07/2021 12:41 AM T [facility] Blood, arterial ARTERIAL BLOOD SPECIMEN / Unknown Arterial Puncture / Unknown 03/07/2021 12:29 AM CDT 03/07/2021 12:38 AM CDT Narrative [facility] - 03/07/2021 12:41 AM CDT Carboxyhemoglobin Normal Concentration: Non-smokers: 0-2%; Smokers: 0-9%; Toxic: >20% Fredy Felipe MD LAB - BLOOD GASES OR DERABLES [address] [address], [place] [phone] * (ABNORMAL) CALCIUM IONIZED WHOLE BLOOD (03/07/2021 12:29 AM CDT) Calcium Ionized 1.20 mmol/L 03/07/2021 12:41 AM [facility] pH 7.51(H) 7.35 - 7.45 pH 03/07/2021 12:41 AM [facility] Ionized Calcium pH Adjusted 1.26 1.19 - 1.34 mmol/L 03/07/2021 12:41 AM T [facility] Blood BLOOD SPECIMEN / Unknown Venipuncture / Unknown 03/07/2021 12:29 AM CDT 03/07/2021 12:38 AM CDT Fredy Felipe MD LAB - CHEMISTRY ORDE RABSILVA [address] [address], [place] [phone] * (ABNORMAL) HEPATIC FUNCTION PANEL (03/06/2021 11:52 PM CDT) [facility] Protein Total 7.4 6.0 - 8.3 g/dL 5:57 AM [facility] Albumin 1.7(L) 3.4 - 5.0 g/dL 03/07/2021 5:57 AM [facility] Bilirubin Total 0.9 0.2 - 1.2 mg/dL 02/15 5:57 AM [facility] Bilirubin Conjugated 0.7(H) 0.1 - 0.5 mg/dL 03/07/2021 5:57 AM [facility] Bilirubin Unconjugated 0.2 Unconjugated Bilirubin is a calculated value: Reference ranges have not been established. mg/dL 03/07/2021 5:57 AM [facility] Alkaline Phosphatase 302(H) 40 - 150 U/L 03/07/2021 5:57 AM [facility] ALT 80(H) 5 - 55 U/L 03/07/2021 5:57 AM [facility] AST 86(H) 5 - 34 U/L 03/07/2021 5:57 AM [facility] Albumin/Globulin Ratio 0.3(L) 1.1 - 2.3 03/07/2021 5:57 AM [facility] Blood BLOOD SPECIMEN / Unknown Venipuncture / Unknown 03/06/2021 11:52 PM CDT 03/06/2021 11:56 PM CDT Fredy Felipe MD LAB - CHEMISTRY JOSE ENRIQUE VELA [facility] Organization Address City/State/ZIP Co de Phone Number [facility] [address] [place] [phone], [facility] [phone] * (ABNORMAL) DIFFERENTIAL MANUAL (03/06/2021 11:52 PM CDT) [facility] WBC (corrected for NRBC) 22.9 10? 3 /uL 03/07/2021 1:27 AM [facility] Total Cell Count 100 03/07/2021 1:27 AM [facility] Neutrophils Absolute Manual 18.78(H) 1.60 - 7.00 10? 3 /uL 03/07/2021 1:27 AM [facility] Comment:(BANDS+SEGS) x WBC = NEUT # (ANC) Lymphocyte Absolute Manual 1.60 1.10 - 3.90 10? 3 /uL 03/07/2021 1:27 AM [facility] Monocytes Absolute Manual 2.06(H) 0.26 - 1.07 10? 3 /uL 03/07/2021 1:27 AM [facility] Eosinophils Absolute Manual 0.23 0.00 - 0.47 10? 3 /uL 03/07/2021 1:27 AM [facility] Basophil Absolute Manual 0.23(H) 0.00 - 0.08 10? 3 /uL 03/07/2021 1:27 AM [facility] Neutrophil % Manual 82(H) 35 - 70 % 03/07/2021 1:27 AM [facility] Lymphocyte % Manual 7(L) 20 - 43 % 03/07/2021 1:27 AM [facility] Monocytes % Manual 9 5 - 13 % 03/07/2021 1:27 AM [facility] Eosinophils % Manual 1 0 - 6 % 03/07/2021 1:27 AM [facility] Basophils % Manual 1 0 - 2 % 03/07/2021 1:27 AM [facility] Platelet Estimate Increased( A) Adequate 03/07/2021 1:27 AM [facility] RBC Morphology Normal 03/07/2021 1:27 AM [facility] Blood BLOOD SPECIMEN / Unknown Venipuncture / Unknown 03/06/2021 11:52 PM CDT 03/06/2021 11:56 PM CDT Fredy Felipe MD LAB - HEMATOLOGY ORD ERABLES [facility] [address] [place] [address], [facility] [phone] * (ABNORMAL) CBC W AUTO DIFFERENTIAL (03/06/2021 11:52 PM CDT) [facility] WBC 22.9(H) 3.5 - 10.5 10? 3 /uL 03/07/2021 12:08 AM [facility] RBC 3.88(L) 4.30 - 5.70 10? 6 /uL 03/07/2021 12:08 AM [facility] Hemoglobin 10.3(L) 12.0 - 17.6 g/dL 03/07/2021 12:08 AM [facility] Hematocrit 33.4(L) 35.2 - 51.7 % 03/07/2021 12:08 AM [facility] MCV 86.1 80.7 - 98.3 fL 03/07/2021 12:08 AM [facility] MCH 26.5(L) 26.7 - 34.0 pg 03/07/2021 12:08 AM [facility] MCHC 30.8 30.8 - 35.9 g/dL 03/07/2021 12:08 AM [facility] Platelet Count 598(H) 150 - 400 10? 3 /uL 03/07/2021 12:08 AM [facility] Comment:Checked by periphera l smear. RDW-SD 43.4 36.0 - 50.0 fL 03/07/2021 12:08 AM [facility] RDW-CV 13.8 11.2 - 14.8 % 03/07/2021 12:08 AM [facility] MPV 9.1(L) 9.4 - 12.9 fL 03/07/2021 12:08 AM [facility] nRBC Absolute 0.00 0 10? 3 /uL 03/07/2021 12:08 AM [facility] nRBC Auto 0.0 0 /100 WBC 03/07/2021 12:08 AM [facility] Immature Platelet Fraction 0.9(L) 1.1 - 6.2 % 03/07/2021 12:08 AM [facility] Blood BLOOD SPECIMEN / Unknown Venipuncture / Unknown 03/06/2021 11:52 PM CDT 03/06/2021 11:56 PM CDT Fredy Felipe MD LAB - HEMATOLOGY ORD ERABLES [facility] [address] [place] [address], [facility] [phone] * (ABNORMAL) BASIC METABOLIC PANEL (CALCIUM TOTAL) (03/06/2021 11:52 PM CDT) BUN 36(H) 7 - 26 mg/dL 03/07/2021 12:18 AM [facility] Creatinine 1.45(H) 0.71 - 1.16 mg/dL 03/07/2021 12:18 AM [facility] Sodium 141 136 - 145 mmol/L 03/07/2021 12:18 AM [facility] Potassium 4.0 3.5 - 4.5 mmol/L 03/07/2021 12:18 AM [facility] Chloride 111(H) 98 - 107 mmol/L 03/07/2021 12:18 AM [facility] CO2 17(L) 22 - 29 mmol/L 03/07/2021 12:18 AM [facility] Glucose 112 70 - 115 mg/dL 03/07/2021 12:18 AM [facility] Calcium 8.7 8.4 - 10.2 mg/dL 03/07/2021 12:18 AM [facility] Anion Gap 17 8 - 18 03/07/2021 12:18 AM [facility] BUN/Creatinine Ratio 25(H) 7 - 23 03/07/2021 12:18 AM [facility] Osmolality Calculated 301(H) 270 - 300 mOsm/kg 03/07/2021 12:18 AM [facility] eGFR by CKD-EPI 62(L) >=90 mL/min/1.7 3 m2 03/07/2021 12:18 AM [facility] Blood BLOOD SPECIMEN / Unknown Venipuncture / Unknown 03/06/2021 11:52 PM CDT 03/06/2021 11:56 PM CDT Fredy Felipe MD LAB - CHEMISTRY ORDE RABLES Performing Organization Address City/[facility]/ZIP Co de Phone Number [place] [phone] [place] [address], [facility] [phone] * (ABNORMAL) PT-INR [facility] (03/06/2021 11:52 PM CDT) PT 15.2(H) 12.1 - 14.8 Seconds 03/07/2021 12:08 AM CDT [facility] INR 1.2 See Comment 03/07/2021 12:08 AM CDT [facility] Comment:The suggested therap eutic range for standard coumadin (warfarin) therapy is an INR of 2.0-3.0. For high-risk patients (Mechanical Mitral Valve Prosthesis, etc.), the suggested prophylactic therapeutic range is an INR of 2.5-3.5. Blood BLOOD SPECIMEN / Unknown Venipuncture / Unknown 03/06/2021 11:52 PM CDT 03/06/2021 11:56 PM CDT Fredy Felipe MD LAB - COAGULATION OR DERABLES Performing Organization Address [facility]/ZIP Co de Phone Number [address] [address], [facility] [phone] * PHOSPHORUS BLOOD (03/06/2021 11:52 PM CDT) Phosphorus 3.1 2.8 - 5.1 mg/dL 03/07/2021 12:18 AM CDT [facility] Blood BLOOD SPECIMEN / Unknown Venipuncture / Unknown 03/06/2021 11:52 PM CDT 03/06/2021 11:56 PM CDT Fredy Felipe MD LAB - CHEMISTRY JOSE ENRIQUE VELA Performing Organization Address City/[facility]/ZIP Co de Phone Number [address] [address], [facility] [phone] * MAGNESIUM BLOOD (03/06/2021 11:52 PM CDT) Magnesium 2.3 1.6 - 2.6 mg/dL 03/07/2021 12:18 AM CDT [facility] Blood BLOOD SPECIMEN / Unknown Venipuncture / Unknown 03/06/2021 11:52 PM CDT 03/06/2021 11:56 PM CDT Fredy Felipe MD LAB - CHEMISTRY JOSE ENRIQUE VELA [facility] Organization Address City/State/ZIP Co de Phone Number [facility] [address] [place] [address], [facility] [phone] * CT ABDOMEN PELVIS W CONTRAST (03/06/2021 7:03 PM CDT) Anatomical Region Laterality Modality Abdomen, Pelvis Computed Tomogra phy 03/06/2021 7:06 PM CDT Impressions 03/07/2021 8:28 AM CDT Impression: 1.Gastrostomy tube is in the stomach. The stomach, small bowel, and cecum are opacified with contrast. No contrast extravasation is identified. 2.Findings concerning for multiple intra-abdominal abscesses as well as fluid collection/infection just underlying the midline abdominal incision with significant intraperitoneal mesenteric stranding superior and anterior to the transverse colon. For reference, three collections are as follows: -Rim-enhancing fluid collection abutting the right hepatic lobe near the falciform ligament -Rim-enhancing fluid collection adjacent to the inferior aspect of the liver and the small bowel measuring 2.3 x 1.6 x 6.1 cm; It is possible this is beginning to fistulize with the adjacent loop of small bowel. -Rim-enhancing fluid collection is seen medial and superior to the gallbladder, measuring 4.2 x 1.2 x 3.1 cm . 3. Left kidney is slightly enlarged and poor nephrographic density. Renal vein and renal arteries are patent and there is no calculi or hydronephrosis. This finding is to be correlated with clinical data. Preliminary findings discussed with Dr. Gupta by Dr. Fortune on 03/06/2021 at 7:35 pm. Report drafted by Ivette Fortune (resident) I, Dr. NAOMY LAZO MD, [facility] have personally reviewed and interpreted this examination/study. This report was electronically signed by NAOMY LAZO MD, FRCR ??on 03/07/2021 8:28 AM . Narrative 03/07/2021 8:28 AM CDT Procedure Information DATE: 03/06/2021 7:03 PM EXAMINATION: Computed tomography (CT) of the abdomen and pelvis with contrast TECHNIQUE: CT of the abdomen and pelvis was performed following the uneventful administration of 150 mL of Isovue 370 intravenous contrast according to standard protocol. Clinical Information HISTORY: T14.90XA: Trauma COMPARISON: None. Findings Examination is limited by motion. Lower Chest: Patchy bilateral basilar atelectasis. An approximately 8 mm sized nodule is noted in the lingular segment of the left lung upper lobe (assessment was limited due to artifacts). Fluid collections: There is a loculated, rim-enhancing fluid collection abutting the left hepatic lobe near the falciform ligament (series 3, image 55), likely representing an abscess. Minimal fluid is is seen tracking along the inferior surface of the liver to is the gallbladder bed (image [id number]). There is associated soft tissue stranding adjacent fat planes. An approximately 2.7 cm sized loculated fluid collection is noted in the right upper quadrant of the abdomen immediately inferior to liver (image 92 in series 3). Small fluid is noted in the anterior abdominal wall along the midline incision and it shows small air pocket within it (image 72 in series 3). Hepatobiliary: The liver enhances homogenously. The gallbladder is nondistended. There is pericholecystic fluid. No gallstones are identified. No biliary dilation is identified. Pancreas: Normal. Spleen: Normal. Kidneys: Left kidney is slightly enlarged, globular and there is decreased nephrographic density compared to right side. The renal artery and renal veins are patent. No calculi or hydronephrosis seen. No perinephric fluid collection is identified. Left ureter is nondilated. 0.9 cm hypodensity in the superior pole of the right kidney is too small to characterize. No calculi or hydronephrosis is seen. Adrenals: Normal. Retroperitoneum: Normal. Gastrointestinal and peritoneum and abdominal wall: A gastrostomy tube is present in the stomach with the stomach tacked to the anterior abdominal wall. The stomach, small bowel, and cecum are opacified with contrast. Post anastomotic changes are noted in the small bowel in the right side of the abdomen. No contrast extravasation is identified. There is no contrast in the rest of the colon. ??No free intraperitoneal air. There are other scattered small similar loculated-appearing rim-enhancing fluid collections in the abdomen (series 3, image 109 for reference). Mild mesenteric fluid collection associated with the soft tissue stranding. Appendix: Not identified. Pelvic Structures: A Gar catheter is present within a decompressed bladder. The prostate is unremarkable. Vasculature: Patent. Bones: The visible osseous structures are intact. Soft tissues: Abdominal wall anteriorly as described above. There is fat stranding in the right lateral abdominal wall. A focus of air is seen in the right lower abdominal wall, likely from prior injection. Procedure Note Naomy Lazo MD - 03/07/2021 Procedure Information DATE: 03/06/2021 7:03 PM EXAMINATION: Computed tomography (CT) of the abdomen and pelvis with contrast TECHNIQUE: CT of the abdomen and pelvis was performed following the uneventful administration of 150 mL of Isovue 370 intravenous contrast according to standard protocol. Clinical Information HISTORY: T14.90XA: Trauma COMPARISON: None. Findings Examination is limited by motion. Lower Chest: Patchy bilateral basilar atelectasis. An approximately 8 mm sized nodule is noted in the lingular segment of the left lung upper lobe (assessment was limited due to artifacts). Fluid collections: There is a loculated, rim-enhancing fluid collection abutting the left hepatic lobe near the falciform ligament (series 3, image 55), likely representing an abscess. Minimal fluid is is seen tracking along the inferior surface of the liver to is the gallbladderbed (image [id number]). There is associated soft tissue stranding adjacent fat planes. An approximately 2.7 cm sized loculated fluid collection is noted in the right upper quadrant of the abdomen immediately inferior to liver (image 92 in series 3). Small fluid is noted in the anterior abdominal wall along the midline incision and it shows small air pocket within it (image 72 in series 3). Hepatobiliary: The liver enhances homogenously. The gallbladder is nondistended. Thereis pericholecystic fluid. No gallstones are identified. No biliary dilation is identified. Pancreas: Normal. Spleen: Normal. Kidneys: Left kidney is slightly enlarged, globular and there is decreased nephrographic density compared to right side. The renal artery and renal veins are patent. No calculi or hydronephrosis seen. No perinephricfluid collection is identified. Left ureter is nondilated. 0.9 cm hypodensity in the superior pole of the right kidney is too small to characterize. No calculi or hydronephrosis is seen. Adrenals: Normal. Retroperitoneum: Normal. Gastrointestinal and peritoneum and abdominal wall: A gastrostomy tube is present in the stomach with the stomach tacked to the anterior abdominal wall. The stomach, small bowel, and cecum are opacified with contrast. Post anastomotic changes are noted in the small bowel in the right side of the abdomen. No contrast extravasation is identified. There is no contrast in the rest of the colon. No free intraperitoneal air. There are other scattered small similar loculated-appearing rim-enhancing fluid collections in the abdomen(series 3, image 109 for reference). Mild mesenteric fluid collection associated with the soft tissue stranding. Appendix: Not identified. Pelvic Structures: A Gar catheter is present within a decompressed bladder. The prostateis unremarkable. Vasculature: Patent. Bones: The visible osseous structures are intact. Soft tissues: Abdominal wall anteriorly as described above. There is fat stranding in the right lateral abdominal wall. A focus of air is seen in the right lower abdominal wall, likely from prior injection. Impression: 1.Gastrostomy tube is in the stomach. The stomach, small bowel, andcecum are opacified with contrast. No contrast extravasation is identified. 2.Findings concerning for multiple intra-abdominal abscesses as well as fluid collection/infection just underlying the midline abdominalincision with significant intraperitoneal mesenteric stranding superior and anterior to the transverse colon. For reference, three collections areas follows: -Rim-enhancing fluid collection abutting the right hepatic lobe near the falciform ligament -Rim-enhancing fluid collection adjacent to the inferior aspect of the liver and the small bowel measuring 2.3 x 1.6 x 6.1 cm; It is possible this is beginning to fistulize with the adjacent loop ofsmall bowel. -Rim-enhancing fluid collection is seen medial and superior to the gallbladder, measuring 4.2 x 1.2 x 3.1 cm . 3. Left kidney is slightly enlarged and poor nephrographic density.Renal vein and renal arteries are patent and there is no calculi or hydronephrosis. This finding is to be correlated with clinical data. Preliminary findings discussed with Dr. Gupta by Dr. Fortune on 03/06/2021 at 7:35 pm. Report drafted by Ivette Fortune (resident) I, Dr. NAOMY LAZO MD, FRCR have personally reviewedand interpreted this examination/study. This report was electronically signed by NAOMY LAZO MD, FRCR on 03/07/2021 8:28 AM . Fredy Felipe MD CT ORDERABLES * (ABNORMAL) URINALYSIS REFLEX TO MICROSCOPIC NO CULTURE (03/06/2021 5:11 PM CDT) Color UA Yellow Straw, Yellow 03/06/2021 5:45 PM [facility] Clarity UA Slt Cloudy(A) Clear 03/06/2021 5:45 PM T [facility] Specific [place] UA 1.020 1.005 - 1.030 03/06/2021 5:45 PM [facility] pH UA 6.0 5.0 - 8.0 pH 03/06/2021 5:45 PM T [facility] Protein UA 2+(A) Negative 03/06/2021 5:45 PM [facility] Glucose UA Negative Negative 03/06/2021 5:45 PM T [facility] Ketone UA Negative Negative 03/06/2021 5:45 PM T [facility] Bilirubin UA Negative Negative 03/06/2021 5:45 PM [facility] Blood UA 2+(A) Negative 03/06/2021 5:45 PM [facility] Nitrite UA Negative Negative 03/06/2021 5:45 PM [facility] Leukocyte Esterase Trace(A) Negative 03/06/2021 5:45 PM [facility] Urobilinogen UA Negative Negative mg/dL 03/06/2021 5:45 PM [facility] RBC UA 11-20(A) None Seen, 0-2, 3-5 /HPF 03/06/2021 5:45 PM [facility] WBC UA 21-50(A) None Seen, 0-5 /HPF 03/06/2021 5:45 PM CDT [facility] Bacteria UA Trace(A) None /HPF 03/06/2021 5:45 PM CDT [facility] Yeast Budding UA Few(A) None /HPF 03/06/20 5:45 PM CDT [facility] Squamous Epithelial Cells UA 0-2 None Seen, 0-2, 3-5 /HPF 03/06/2021 5:45 PM CDT [facility] Mucus UA 1+ /LPF 03/06/2021 5:45 PM CDT [facility] RBC Casts UA 0-2(A) None Seen /LPF 03/06/2021 5:45 PM CDT [facility] Granular Casts UA 3-5(A) None Seen /LPF 03/06/2021 5:45 PM CDT [facility] Urine URINE SPECIMEN OBTAINED VIA [facility] / Unknown Collection / Unknown 03/06/2021 5:11 PM CDT 03/06/2021 5:19 PM CDT Narrative [facility] - 03/06/2021 5:45 PM CDT Fredy Felipe MD LAB - URINALYSIS ORD ERABLES [facility] [address] [place] [phone], [facility] [phone] * XR CHEST 1VW PORTABLE (03/06/2021 4:07 AM CDT) Anatomical Region Laterality Modality Chest Radiographic Sera ging 03/06/2021 10:1 2 AM CDT Impressions 03/06/2021 1:50 PM CDT IMPRESSION: 1.Minimal bibasilar atelectatic changes. Report drafted by Keo Hernandez M.D. (resident) I, Dr. OSWALDO CLEMONS have personally reviewed and interpreted this examination/study. This report was electronically signed by OSWALDO CLEMONS ??on 03/06/2021 1:50 PM . Narrative 03/06/2021 1:50 PM CDT EXAMINATION: XR CHEST 1VW PORTABLE HISTORY: T14.90XA: Trauma COMPARISON: chest radiograph on 03/05/2021 FINDINGS: Tracheostomy tubing terminates in the midtrachea. There are minimal bibasilar atelectatic changes. No focal consolidation, pleural effusion, or pneumothorax is seen. The cardiomediastinal silhouette is stable. Procedure Note Oswaldo Clemons MD - 03/06/2021 EXAMINATION: XR CHEST 1VW PORTABLE HISTORY: T14.90XA: Trauma COMPARISON: chest radiograph on 03/05/2021 FINDINGS: Tracheostomy tubing terminates in the midtrachea. There are minimal bibasilar atelectatic changes. No focal consolidation, pleural effusion, or pneumothorax is seen. The cardiomediastinal silhouette is stable. IMPRESSION: 1.Minimal bibasilar atelectatic changes. Report drafted by Keo Hernandez M.D. (resident) I, Dr. OSWALDO CLEMONS have personally reviewed and interpreted this examination/study. This report was electronically signed by OSWALDO CLEMONS on 03/06/2021 1:50 PM . Fredy Felipe MD DIAGNOSTIC IMAGING O RDERABLES * (ABNORMAL) DIFFERENTIAL MANUAL (03/06/2021 1:01 AM CDT) WBC (corrected for NRBC) 25.2 10? 3 /uL 03/06/2021 2:[facility] Total Cell Count 100 03/06/2021 2:40 AM T [facility] Neutrophils Absolute Manual 23.18(H) 1.60 - 7.00 10? 3 /uL 03/06/2021 2:40 AM [facility] Comment:(BANDS+SEGS) x WBC = NEUT # (ANC) Lymphocyte Absolute Manual 0.50(L) 1.10 - 3.90 10? 3 /uL 03/06/2021 2:40 AM CDT [facility] Monocytes Absolute Manual 1.01 0.26 - 1.07 10? 3 /uL 03/06/2021 2:40 AM [facility] Eosinophils Absolute Manual 0.50(H) 0.00 - 0.47 10? 3 /uL 03/06/2021 2:40 AM [facility] Neutrophil % Manual 92(H) 35 - 70 % 03/06/2021 2:40 AM [facility] Lymphocyte % Manual 2(L) 20 - 43 % 03/06/2021 2:40 AM [facility] Monocytes % Manual 4(L) 5 - 13 % 03/06/2021 2:40 AM [facility] Eosinophils % Manual 2 0 - 6 % 03/06/2021 2:40 AM [facility] Platelet Estimate Increased( A) Adequate 03/06/2021 2:40 AM [facility] Comment:Platelets are clumpe d on smear but appear increased. RBC Morphology Normal 03/06/2021 2:40 AM [facility] Blood BLOOD SPECIMEN / Unknown Venipuncture / Unknown 03/06/2021 1:01 AM CDT 03/06/2021 1:16 AM CDT Fredy Felipe MD LAB - HEMATOLOGY ORD ERABLES [facility] [address] [place] [phone], [facility] [phone] * (ABNORMAL) CBC W AUTO DIFFERENTIAL (03/06/2021 1:01 AM CDT) WBC 25.2(H) 3.5 - 10.5 10? 3 /uL 03/06/2021 1:36 AM [facility] RBC 3.56(L) 4.30 - 5.70 10? 6 /uL 03/06/2021 1:36 AM [facility] Hemoglobin 9.8(L) 12.0 - 17.6 g/dL 03/06/2021 1:36 AM [facility] Hematocrit 31.4(L) 35.2 - 51.7 % 03/06/2021 1:36 AM [facility] MCV 88.2 80.7 - 98.3 fL 03/06/2021 1:36 AM [facility] MCH 27.5 26.7 - 34.0 pg 03/06/2021 1:36 AM [facility] MCHC 31.2 30.8 - 35.9 g/dL 03/06/2021 1:36 AM [facility] Platelet Count 633(H) 150 - 400 10? 3 /uL 03/06/2021 1:36 AM [facility] RDW-SD 45.5 36.0 - 50.0 fL 03/06/2021 1:36 AM [facility] RDW-CV 14.0 11.2 - 14.8 % 03/06/2021 1:36 AM [facility] MPV 9.0(L) 9.4 - 12.9 fL 03/06/2021 1:36 AM [facility] nRBC Absolute 0.00 0 10? 3 /uL 03/06/2021 1:36 AM [facility] nRBC Auto 0.0 0 /100 WBC 03/06/2021 1:36 AM [facility] Blood BLOOD SPECIMEN / Unknown Venipuncture / Unknown 03/06/2021 1:01 AM CDT 03/06/2021 1:16 AM CDT Fredy Felipe MD LAB - HEMATOLOGY ORD ERABLES [facility] [address] [place] [phone], [facility] [phone] * (ABNORMAL) TRIGLYCERIDES BLOOD (03/06/2021 12:06 AM CDT) Triglycerides 263(H) <150 mg/dL 03/06/2021 12:50 AM [facility] Comment: ATP III Classification of Triglycerides: ?<150 mg/dL: ??Normal ? 150 - 199 mg/dL: ??Borderline High ? 200 - 400 mg/dL: ??High ?>500 mg/dL: ??Very High Blood BLOOD SPECIMEN / Unknown Venipuncture / Unknown 03/06/2021 12:06 AM CDT 03/06/2021 12:25 AM CDT Kelvin Stewart MD LAB - CHEMISTRY ORD TERESA Performing Organization Address [facility] Co de Phone Number [facility] [address] [place] [address], [facility] [phone] * (ABNORMAL) BASIC METABOLIC PANEL (CALCIUM TOTAL) (03/06/2021 12:06 AM CDT) BUN 31(H) 7 - 26 mg/dL 03/06/2021 12:50 AM [facility] Creatinine 1.42(H) 0.71 - 1.16 mg/dL 03/06/2021 12:50 AM [facility] Sodium 142 136 - 145 mmol/L 03/06/2021 12:50 AM [facility] Potassium 4.0 3.5 - 4.5 mmol/L 03/06/2021 12:50 AM [facility] Chloride 111(H) 98 - 107 mmol/L 03/06/2021 12:50 AM [facility] CO2 19(L) 22 - 29 mmol/L 03/06/2021 12:50 AM [facility] Glucose 124(H) 70 - 115 mg/dL 03/06/2021 12:50 AM [facility] Calcium 8.8 8.4 - 10.2 mg/dL 03/06/2021 12:50 AM [facility] Anion Gap 16 8 - 18 03/06/2021 12:50 AM [facility] BUN/Creatinine Ratio 22 7 - 23 03/06/2021 12:50 AM [facility] Osmolality Calculated 302(H) 270 - 300 mOsm/kg 03/06/2021 12:50 AM [facility] eGFR by CKD-EPI 64(L) >=90 mL/min/1.7 3 m2 03/06/2021 12:50 AM [facility] Blood BLOOD SPECIMEN / Unknown Venipuncture / Unknown 03/06/2021 12:06 AM CDT 03/06/2021 12:25 AM CDT Fredy Felipe MD LAB - CHEMISTRY JOSE ENRIQUE VELA [facility] [address] [place] [address], [facility] [phone] * (ABNORMAL) BLOOD GASES ART + COOX PANEL (03/06/2021 12:06 AM [facility]) pH Arterial 7.42 7.35 - 7.45 pH 03/06/2021 12:36 AM [facility] pO2 Arterial 189(H) 80 - 100 mmHg 03/06/2021 12:36 AM [facility] pCO2 Arterial 30(L) 35 - 45 mmHg 12:36 AM [facility] HCO3 Arterial 20 20 - 30 mmol/l 03/06/2021 12:36 AM [facility] BE Arterial -4.1(L) -2.0 - 2.0 mmol/L 03/06/2021 12:36 AM [facility] Oxyhemoglobin Arterial 97.2 % 03/06/2021 12:36 AM [facility] Dexoyhemoglobin (HHB) % 0.0 % 03/06/2021 12:36 AM [facility] Methemoglobin <0.8 0.0 - 2.0 % 03/06/2021 12:36 AM [facility] Carboxyhemoglobin 2.4(H) 0.0 - 2.0 % 2020 12:36 AM [facility] O2 Content Arterial 15.1 Interpret within clinical context mg/dL 03/06/2021 12:36 AM [facility] Hemoglobin by COOX 10.7(L) 12.0 - 17.6 g/dL 03/06/2021 12:36 AM [facility] O2 Saturation Arterial 100 90 - 100 % 03/06/2021 12:36 AM [facility] FI O2 Arterial 80.0 % 03/06/2021 12:36 AM [facility] Blood, arterial ARTERIAL BLOOD SPECIMEN / Unknown Arterial Puncture / Unknown 03/06/2021 12:06 AM CDT 03/06/2021 12:22 AM [facility] - 03/06/2021 12:36 AM CDT Carboxyhemoglobin Normal Concentration: Non-smokers: 0-2%; Smokers: 0-9%; Toxic: >20% Fredy Felipe MD LAB - BLOOD GASES OR DERABLES Performing Organization Address [facility] Co de Phone Number [address] [address], [facility] [phone] * (ABNORMAL) PT-INR [facility] (03/06/2021 12:06 AM CDT) PT 15.7(H) 12.1 - 14.8 Seconds 03/06/2021 12:43 AM CDT [facility] INR 1.3 See Comment 03/06/2021 12:43 AM CDT [facility] Comment:The suggested therap eutic range for standard coumadin (warfarin) therapy is an INR of 2.0-3.0. For high-risk patients (Mechanical Mitral Valve Prosthesis, etc.), the suggested prophylactic therapeutic range is an INR of 2.5-3.5. Blood BLOOD SPECIMEN / Unknown Venipuncture / Unknown 03/06/2021 12:06 AM CDT 03/06/2021 12:22 AM CDT Fredy Felipe MD LAB - COAGULATION OR DERABLES Performing Organization Address [facility] Co de Phone Number [address] [address], [facility] [phone] * PHOSPHORUS BLOOD (03/06/2021 12:06 AM CDT) Phosphorus 3.3 2.8 - 5.1 mg/dL 03/06/2021 12:50 AM CDT [facility] Blood BLOOD SPECIMEN / Unknown Venipuncture / Unknown 03/06/2021 12:06 AM CDT 03/06/2021 12:25 AM CDT Fredy Felipe MD LAB - CHEMISTRY ORDE RABLES Performing Organization Address City/[facility]/ZIP Co de Phone Number [address] [address], [facility] [phone] * MAGNESIUM BLOOD (03/06/2021 12:06 AM CDT) Magnesium 2.1 1.6 - 2.6 mg/dL 03/06/2021 12:50 AM CDT [facility] Blood BLOOD SPECIMEN / Unknown Venipuncture / Unknown 03/06/2021 12:06 AM CDT 03/06/2021 12:25 AM CDT Fredy Felipe MD LAB - CHEMISTRY JOSE ENRIQUE VELA [address] [address], [facility] [phone] * (ABNORMAL) CALCIUM IONIZED WHOLE BLOOD (03/06/2021 12:06 AM CDT) Calcium Ionized 1.12 mmol/L 03/06/2021 12:40 AM CDT [facility] pH 7.43 7.35 - 7.45 pH 03/06/2021 12:40 AM CDT [facility] Ionized Calcium pH Adjusted 1.13(L) 1.19 - 1.34 mmol/L 03/06/2021 12:40 AM CDT [facility] Blood BLOOD SPECIMEN / Unknown Venipuncture / Unknown 03/06/2021 12:06 AM CDT 03/06/2021 12:22 AM CDT Fredy Felipe MD LAB - CHEMISTRY JOSE ENRIQUE VELA [facility] [address] [place] [phone], [facility] [phone] * XR CHEST 1VW PORTABLE (03/05/2021 4:54 AM CDT) Anatomical Region Laterality Modality Chest Radiographic Sera ging 03/05/2021 11:3 8 AM CDT Impressions 03/05/2021 2:40 PM CDT FINDINGS/IMPRESSION: An endotracheal tube terminates in the mid trachea. There is mild perihilar and basilar atelectasis. There is no pleural effusion or pneumothorax. The heart size and mediastinal contours are normal. Report drafted by Keo Hernandez M.D. (resident) Dr. AFRICA Yao M.D. have personally reviewed and interpreted this examination/study. This report was electronically signed by AFRICA HENRIQUEZ M.D. ??on 03/05/2021 2:40 PM . Narrative 03/05/2021 2:40 PM CDT EXAMINATION: XR CHEST 1VW PORTABLE HISTORY: T14.90XA: Trauma COMPARISON: chest radiograph on 03/04/2021 Procedure Note Africa Henriquez MD - 03/05/2021 EXAMINATION: XR CHEST 1VW PORTABLE HISTORY: T14.90XA: Trauma COMPARISON: chest radiograph on 03/04/2021 FINDINGS/IMPRESSION: An endotracheal tube terminates in the mid trachea. There is mild perihilar and basilar atelectasis. There is no pleural effusion or pneumothorax. The heart size and mediastinal contours are normal. Report drafted by Keo Hernandez M.D. (resident) Dr. AFRICA Yao M.D. have personally reviewed and interpreted this examination/study. This report was electronically signed by AFRICA HENRIQUEZ M.D. on03/05/2021 2:40 PM . Fredy Felipe MD DIAGNOSTIC IMAGING O RDERABLES * (ABNORMAL) DIFFERENTIAL MANUAL (03/04/2021 11:48 PM CDT) WBC (corrected for NRBC) 22.9 10? 3 /uL 03/05/2021 12:32 AM CDT [facility] Total Cell Count 100 03/05/2021 12:32 AM CDT [facility] Neutrophils Absolute Manual 19.47(H) 1.60 - 7.00 10? 3 /uL 03/05/2021 12:32 AM CDT [facility] Comment:(BANDS+SEGS) x WBC = NEUT # (ANC) Lymphocyte Absolute Manual 1.15 1.10 - 3.90 10? 3 /uL 03/05/2021 12:32 AM CDT [facility] Monocytes Absolute Manual 1.83(H) 0.26 - 1.07 10? 3 /uL 03/05/2021 12:32 AM [facility] Eosinophils Absolute Manual 0.46 0.00 - 0.47 10? 3 /uL 03/05/2021 12:32 AM [facility] Neutrophil % Manual 85(H) 35 - 70 % 03/05/2021 12:32 AM [facility] Lymphocyte % Manual 5(L) 20 - 43 % 03/05/2021 12:32 AM [facility] Monocytes % Manual 8 5 - 13 % 03/05/2021 12:32 AM [facility] Eosinophils % Manual 2 0 - 6 % 03/05/2021 12:32 AM [facility] Platelet Estimate Increased( A) Adequate 03/05/2021 12:32 AM [facility] RBC Morphology Normal 03/05/2021 12:32 AM [facility] Blood BLOOD SPECIMEN / Unknown Venipuncture / Unknown 03/04/2021 11:48 PM CDT 03/04/2021 11:53 PM CDT Fredy Felipe MD LAB - HEMATOLOGY ORD ERABLES Performing Organization Address City/State/[facility] Co de Phone Number [facility] [address] [place] [phone] [phone] * (ABNORMAL) CBC W AUTO DIFFERENTIAL (03/04/2021 11:48 PM CDT) WBC 22.9(H) 3.5 - 10.5 10? 3 /uL 03/05/2021 12:06 AM [facility] RBC 3.89(L) 4.30 - 5.70 10? 6 /uL 03/05/2021 12:06 AM [facility] Hemoglobin 10.7(L) 12.0 - 17.6 g/dL 03/05/2021 12:06 AM [facility] Hematocrit 33.9(L) 35.2 - 51.7 % 03/05/2021 12:06 AM [facility] MCV 87.1 80.7 - 98.3 fL 03/05/2021 12:06 AM [facility] MCH 27.5 26.7 - 34.0 pg 03/05/2021 12:06 AM [facility] MCHC 31.6 30.8 - 35.9 g/dL 03/05/2021 12:06 AM [facility] Platelet Count 712(H) 150 - 400 10? 3 /uL 03/05/2021 12:06 AM [facility] RDW-SD 44.3 36.0 - 50.0 fL 03/05/2021 12:06 AM [facility] RDW-CV 14.0 11.2 - 14.8 % 03/05/2021 12:06 AM [facility] MPV 8.9(L) 9.4 - 12.9 fL 03/05/2021 12:06 AM [facility] nRBC Absolute 0.00 0 10? 3 /uL 03/05/2021 12:06 AM [facility] nRBC Auto 0.0 0 /100 WBC 03/05/2021 12:06 AM [facility] Immature Platelet Fraction 1.2 1.1 - 6.2 % 03/05/2021 12:06 AM [facility] Blood BLOOD SPECIMEN / Unknown Venipuncture / Unknown 03/04/2021 11:48 PM CDT 03/04/2021 11:53 PM CDT Fredy Felipe MD LAB - HEMATOLOGY ORD ERABLES Performing Organization Address [facility]/State/[facility] Co de Phone Number [address] [phone] [phone] * (ABNORMAL) BASIC METABOLIC PANEL (CALCIUM TOTAL) (03/04/2021 11:48 PM CDT) BUN 27(H) 7 - 26 mg/dL 03/05/2021 12:16 AM [facility] Creatinine 1.27(H) 0.71 - 1.16 mg/dL 03/05/2021 12:16 AM [facility] Sodium 142 136 - 145 mmol/L 03/05/2021 12:16 AM [facility] Potassium 3.9 3.5 - 4.5 mmol/L 03/05/2021 12:16 AM [facility] Chloride 111(H) 98 - 107 mmol/L 03/05/2021 12:16 AM [facility] CO2 19(L) 22 - 29 mmol/L 03/05/2021 12:16 AM [facility] Glucose 116(H) 70 - 115 mg/dL 03/05/2021 12:16 AM [facility] Calcium 9.2 8.4 - 10.2 mg/dL 03/05/2021 12:16 AM [facility] Anion Gap 16 8 - 18 03/05/2021 12:16 AM [facility] BUN/Creatinine Ratio 21 7 - 03/05/2021 12:16 AM [facility] Osmolality Calculated 300 270 - 300 mOsm/kg 03/05/2021 12:16 AM [facility] eGFR by CKD-EPI 73(L) >=90 mL/min/1.7 3 m2 03/05/2021 12:16 AM [facility] Blood BLOOD SPECIMEN / Unknown Venipuncture / Unknown 03/04/2021 11:48 PM CDT 03/04/2021 11:53 PM CDT Fredy Felipe MD LAB - CHEMISTRY [facility] Organization Address City/State/ZIP Co de Phone Number [facility] [address] [place] [phone], [facility] [phone] * (ABNORMAL) BLOOD GASES ART + COOX PANEL (03/04/2021 11:48 PM CDT) pH Arterial 7.46(H) 7.35 - 7.45 pH 03/04/2021 11:57 PM [facility] pO2 Arterial 190(H) 80 - 100 mmHg 03/04/2021 11:57 PM [facility] pCO2 Arterial 28(L) 35 - 45 mmHg 11:57 PM [facility] HCO3 Arterial 20 20 - 30 mmol/l 03/04/2021 11:57 PM [facility] BE Arterial -2.9(L) -2.0 - 2.0 mmol/L 03/04/2021 11:57 PM [facility] Oxyhemoglobin Arterial 96.4 % 03/04/2021 11:57 PM [facility] Dexoyhemoglobin (HHB) % 0.5 % 03/04/2021 11:57 PM [facility] Methemoglobin 0.8 0.0 - 2.0 % 03/04/2021 11:57 PM [facility] Carboxyhemoglobin 2.3(H) 0.0 - 2.0 % 2020 11:57 PM [facility] O2 Content Arterial 16.4 Interpret within clinical context mg/dL 03/04/2021 11:57 PM [facility] Hemoglobin by COOX 11.8(L) 12.0 - 17.6 g/dL 03/04/2021 11:57 PM [facility] O2 Saturation Arterial 100 90 - 100 % 03/04/2021 11:57 PM [facility] FI O2 Arterial 40.0 % 03/04/2021 11:57 PM [facility] Blood, arterial ARTERIAL BLOOD SPECIMEN / Unknown Arterial Puncture / Unknown 03/04/2021 11:48 PM CDT 03/04/2021 11:53 PM T [facility] - 03/04/2021 11:57 PM T Carboxyhemoglobin Normal Concentration: Non-smokers: 0-2%; Smokers: 0-9%; Toxic: >20% Fredy Felipe MD LAB - BLOOD GASES OR DERABLES [facility] [address] [place] [address], [facility] [phone] * (ABNORMAL) PT-INR [facility] (03/04/2021 11:48 PM CDT) PT 15.1(H) 12.1 - 14.8 Seconds 03/05/2021 12:12 AM [facility] INR 1.2 See Comment 03/05/2021 12:12 AM CDT [facility] Comment:The suggested therap eutic range for standard coumadin (warfarin) therapy is an INR of 2.0-3.0. For high-risk patients (Mechanical Mitral Valve Prosthesis, etc.), the suggested prophylactic therapeutic range is an INR of 2.5-3.5. Blood BLOOD SPECIMEN / Unknown Venipuncture / Unknown 03/04/2021 11:48 PM CDT 03/04/2021 11:53 PM CDT Fredy Felipe MD LAB - COAGULATION OR DERABLES Performing Organization Address City/[facility]/ZIP Co de Phone Number [address] [address], [place] [phone] * PHOSPHORUS BLOOD (03/04/2021 11:48 PM CDT) Phosphorus 3.2 2.8 - 5.1 mg/dL 03/05/2021 12:16 AM CDT [facility] Blood BLOOD SPECIMEN / Unknown Venipuncture / Unknown 03/04/2021 11:48 PM CDT 03/04/2021 11:53 PM CDT Fredy Felipe MD LAB - CHEMISTRY JOSE ENRIQUE VELA Performing Organization Address [facility]/ZIP Co de Phone Number [address] [address], [place] [phone] * MAGNESIUM BLOOD (03/04/2021 11:48 PM CDT) Magnesium 2.2 1.6 - 2.6 mg/dL 03/05/2021 12:16 AM CDT [facility] Blood BLOOD SPECIMEN / Unknown Venipuncture / Unknown 03/04/2021 11:48 PM CDT 03/04/2021 11:53 PM CDT Fredy Felipe MD LAB - CHEMISTRY JOSE ENRIQUE VELA Performing Organization Address City/[facility]/ZIP Co de Phone Number [address] [address], [place] [phone] * (ABNORMAL) CALCIUM IONIZED WHOLE BLOOD (03/04/2021 11:48 PM CDT) Calcium Ionized 1.22 mmol/L 03/04/2021 11:57 PM CDT [facility] pH 7.47(H) 7.35 - 7.45 pH 03/04/2021 11:57 PM CDT [facility] Ionized Calcium pH Adjusted 1.26 1.19 - 1.34 mmol/L 03/04/2021 11:57 PM CDT [facility] Blood BLOOD SPECIMEN / Unknown Venipuncture / Unknown 03/04/2021 11:48 PM CDT 03/04/2021 11:53 PM CDT Fredy Felipe MD LAB - CHEMISTRY JOSE ENRIQUE VELA [facility] [address] [place] [address], [facility] [phone] * CULTURE MRSA (03/04/2021 12:43 PM CDT) Culture Negative for methicillin-resist ant Staphylococcus aureus (MRSA) [place] 03/05/2021 8:38 PM CDT [facility] MICROBIOLOGY Microbiology SPECIMEN FROM NASAL FOSSAE / Unknown Collection / Unknown 03/04/2021 12:43 PM CDT 03/04/2021 12:52 PM CDT Kelvin Stewart MD LAB - MICROBIOLOGY ORDERABLES [facility] MICROBIOLOGY [address] [place] [address], [facility] [phone] * CULTURE SPUTUM+GRAM STAIN (03/04/2021 5:47 AM CDT) Culture Light normal oropharyngeal zi [place] 03/06/2021 6:42 AM CDT [facility] MICROBIOLOG[facility] Gram Stain <10 per low power field Squamous epithelial cells 03/06/2021 6:42 AM CDT [facility] MICRO[facility]OLOG[facility] Gram Stain >= 25 per low power field Polymorphonuclear cells 03/06/2021 6:42 AM CDT [facility] MICRO[facility]OLOG[facility] Gram Stain Rare Gram-positive cocci 03/06/2021 6:42 AM CDT [facility] MICROBIOLOGY Microbiology SPUTUM / Unknown Collection / Unknown 03/04/2021 5:47 AM CDT 03/04/2021 5:50 AM CDT Fredy Felipe MD LAB - MICROBIOLOGY O RDERABLES [facility]CRO[facility] [address] [place] [address], [facility] [phone] * XR CHEST 1VW PORTABLE (03/04/2021 5:27 AM CDT) Anatomical Region Laterality Modality Chest Radiographic Sera ging 03/04/2021 8:39 AM CDT Impressions 03/04/2021 4:04 PM CDT FINDINGS/IMPRESSION: The endotracheal tube terminates in the midthoracic trachea. Lung volumes are low with bronchovascular crowding. There is interval improvement of persistent perihilar opacities. A bandlike opacity at the left lung base may represent atelectasis. There is no pleural effusion or pneumothorax. Subtle lucency adjacent to the left heart border could represent pneumomediastinum. Recommend attention follow-up. ??The cardiomediastinal silhouette is normal. Dictated by Alex Verdugo MD (residential leasing manager). I, Dr. OSWALDO CLEMONS have personally reviewed and interpreted this examination/study. This report was electronically signed by OSWALDO CLEMONS ??on 03/04/2021 4:04 PM . Narrative 03/04/2021 4:04 PM CDT EXAMINATION: XR CHEST 1VW PORTABLE HISTORY: T14.90XA: Trauma COMPARISON: 03/03/2021 Procedure Note Oswaldo Clemons MD - 03/04/2021 EXAMINATION: XR CHEST 1VW PORTABLE HISTORY: T14.90XA: Trauma COMPARISON: 03/03/2021 FINDINGS/IMPRESSION: The endotracheal tube terminates in the midthoracic trachea. Lung volumes are low with bronchovascular crowding. There is interval improvement of persistent perihilar opacities. A bandlike opacity at the left lung base may represent atelectasis. There is no pleural effusionor pneumothorax. Subtle lucency adjacent to the left heart border could represent pneumomediastinum. Recommend attention follow-up. The cardiomediastinal silhouette is normal. Dictated by Alex Verdugo MD (residential leasing manager). I, Dr. OSWALDO CLEMONS have personally reviewed and interpreted this examination/study. This report was electronically signed by OSWALDO CLEMONS on 03/04/2021 4:04 PM . Fredy Felipe MD DIAGNOSTIC IMAGING O RDERABLES * (ABNORMAL) DIFFERENTIAL MANUAL (03/04/2021 1:04 AM CDT) WBC (corrected for NRBC) 20.3 10? 3 /uL 03/04/2021 1:46 AM [facility] Total Cell Count 100 03/04/2021 1:46 AM [facility] Neutrophils Absolute Manual 17.66(H) 1.60 - 7.00 10? 3 /uL 03/04/2021 1:46 AM [facility] Comment:(BANDS+SEGS) x WBC = NEUT # (ANC) Lymphocyte Absolute Manual 0.81(L) 1.10 - 3.90 10? 3 /uL 03/04/2021 1:46 AM [facility] Monocytes Absolute Manual 1.02 0.26 - 1.07 10? 3 /uL 03/04/2021 1:46 AM [facility] Eosinophils Absolute Manual 0.61(H) 0.00 - 0.47 10? 3 /uL 03/04/2021 1:46 AM [facility] Neutrophil % Manual 87(H) 35 - 70 % 03/04/2021 1:46 AM [facility] Lymphocyte % Manual 4(L) 20 - 43 % 03/04/2021 1:46 AM [facility] Monocytes % Manual 5 5 - 13 % 03/04/2021 1:46 AM [facility] Eosinophils % Manual 3 0 - 6 % 03/04/2021 1:46 AM [facility] Atypical Lymphocyte % Manual 1(H) 0 % 03/04/2021 1:46 AM [facility] Platelet Estimate Increased( A) Adequate 03/04/2021 1:46 AM [facility] Comment:Platelet clumpled on the smear but appear increased RBC Morphology Normal 03/04/2021 1:46 AM [facility] Blood BLOOD SPECIMEN / Unknown Venipuncture / Unknown 03/04/2021 1:04 AM CDT 03/04/2021 1:16 AM CDT Fredy Felipe MD LAB - HEMATOLOGY ORD ERABLES [facility] [address] [place] [address], [facility] [phone] * (ABNORMAL) CBC W AUTO DIFFERENTIAL (03/04/2021 1:04 AM CDT) WBC 20.3(H) 3.5 - 10.5 10? 3 /uL 03/04/2021 1:21 AM [facility] RBC 3.97(L) 4.30 - 5.70 10? 6 /uL 03/04/2021 1:21 AM [facility] Hemoglobin 10.7(L) 12.0 - 17.6 g/dL 03/04/2021 1:21 AM [facility] Hematocrit 33.9(L) 35.2 - 51.7 % 03/04/2021 1:21 AM [facility] MCV 85.4 80.7 - 98.3 fL 03/04/2021 1:21 AM [facility] MCH 27.0 26.7 - 34.0 pg 03/04/2021 1:21 AM [facility] MCHC 31.6 30.8 - 35.9 g/dL 03/04/2021 1:21 AM [facility] Platelet Count 665(H) 150 - 400 10? 3 /uL 03/04/2021 1:21 AM [facility] RDW-SD 43.2 36.0 - 50.0 fL 03/04/2021 1:21 AM [facility] RDW-CV 13.7 11.2 - 14.8 % 03/04/2021 1:21 AM [facility] MPV 8.8(L) 9.4 - 12.9 fL 03/04/2021 1:21 AM [facility] nRBC Absolute 0.00 0 10? 3 /uL 03/04/2021 1:21 AM [facility] nRBC Auto 0.0 0 /100 WBC 03/04/2021 1:21 AM [facility] Blood BLOOD SPECIMEN / Unknown Venipuncture / Unknown 03/04/2021 1:04 AM CDT 03/04/2021 1:16 AM T Fredy Felipe MD LAB - HEMATOLOGY ORD ERABLES [facility] [address] [place] [address], [facility] [phone] * (ABNORMAL) BASIC METABOLIC PANEL (CALCIUM TOTAL) (03/04/2021 1:04 AM T) BUN 25 7 - 26 mg/dL 03/04/2021 1:40 AM [facility] Creatinine 1.28(H) 0.71 - 1.16 mg/dL 03/04/2021 1:40 AM [facility] Sodium 141 136 - 145 mmol/L 03/04/2021 1:40 AM [facility] Potassium 3.6 3.5 - 4.5 mmol/L 03/04/2021 1:40 AM [facility] Chloride 109(H) 98 - 107 mmol/L 03/04/2021 1:40 AM [facility] CO2 19(L) 22 - 29 mmol/L 03/04/2021 1:40 AM [facility] Glucose 117(H) 70 - 115 mg/dL 03/04/2021 1:40 AM [facility] Calcium 9.2 8.4 - 10.2 mg/dL 03/04/2021 1:40 AM [facility] Anion Gap 17 8 - 18 03/04/2021 1:40 AM [facility] BUN/Creatinine Ratio 20 7 - 23 03/04/2021 1:40 AM [facility] Osmolality Calculated 297 270 - 300 mOsm/kg 03/04/2021 1:40 AM [facility] eGFR by CKD-EPI 72(L) >=90 mL/min/1.7 3 m2 03/04/2021 1:40 AM [facility] Blood BLOOD SPECIMEN / Unknown Venipuncture / Unknown 03/04/2021 1:04 AM CDT 03/04/2021 1:16 AM T Fredy Felipe MD LAB - CHEMISTRY JOSE ENRIQUE VELA [facility] [address] [place] [address], [facility] [phone] * (ABNORMAL) BLOOD GASES ART + COOX PANEL (03/04/2021 1:04 AM [facility]) pH Arterial 7.43 7.35 - 7.45 pH 03/04/2021 1:17 AM [facility] pO2 Arterial 154(H) 80 - 100 mmHg 03/04/2021 1:17 AM [facility] pCO2 Arterial 32(L) 35 - 45 mmHg 1:17 AM [facility] HCO3 Arterial 21 20 - 30 mmol/l 03/04/2021 1:17 AM [facility] BE Arterial -2.4(L) -2.0 - 2.0 mmol/L 03/04/2021 1:17 AM [facility] Oxyhemoglobin Arterial 97.8 % 03/04/2021 1:17 AM [facility] Dexoyhemoglobin (HHB) % 0.3 % 03/04/2021 1:17 AM [facility] Methemoglobin 0.8 0.0 - 2.0 % 03/04/2021 1:17 AM [facility] Carboxyhemoglobin 1.2 0.0 - 2.0 % 2020 1:17 AM [facility] O2 Content Arterial 15.8 Interpret within clinical context mg/dL 03/04/2021 1:17 AM [facility] Hemoglobin by COOX 11.3(L) 12.0 - 17.6 g/dL 03/04/2021 1:17 AM CDT [facility] O2 Saturation Arterial 100 90 - 100 % 03/04/2021 1:17 AM CDT [facility] FI O2 Arterial 40.0 % 03/04/2021 1:17 AM CDT [facility] Blood, arterial ARTERIAL BLOOD SPECIMEN / Unknown Arterial Puncture / Unknown 03/04/2021 1:04 AM CDT 03/04/2021 1:15 AM CDT Narrative [facility] - 03/04/2021 1:17 AM CDT Carboxyhemoglobin Normal Concentration: Non-smokers: 0-2%; Smokers: 0-9%; Toxic: >20% Fredy Felipe MD LAB - BLOOD GASES OR DERABLES Performing Organization Address [facility] de Phone Number [address] [address], [facility] [phone] * (ABNORMAL) PT-INR [facility] (03/04/2021 1:04 AM CDT) PT 15.0(H) 12.1 - 14.8 Seconds 03/04/2021 1:31 AM T [facility] INR 1.2 See Comment 03/04/2021 1:31 AM T [facility] Comment:The suggested therap eutic range for standard coumadin (warfarin) therapy is an INR of 2.0-3.0. For high-risk patients (Mechanical Mitral Valve Prosthesis, etc.), the suggested prophylactic therapeutic range is an INR of 2.5-3.5. Blood BLOOD SPECIMEN / Unknown Venipuncture / Unknown 03/04/2021 1:04 AM CDT 03/04/2021 1:12 AM CDT Fredy Felipe MD LAB - COAGULATION OR DERABLES Performing Organization Address [facility] Co de Phone Number [address] [address], [place] [phone] * PHOSPHORUS BLOOD (03/04/2021 1:04 AM CDT) Phosphorus 3.0 2.8 - 5.1 mg/dL 03/04/2021 1:40 AM CDT [facility] Blood BLOOD SPECIMEN / Unknown Venipuncture / Unknown 03/04/2021 1:04 AM CDT 03/04/2021 1:16 AM CDT Fredy Felipe MD LAB - CHEMISTRY JOSE ENRIQUE VELA Performing Organization Address City/[facility]/ZIP Co de Phone Number [address] [address], [facility] [phone] * MAGNESIUM BLOOD (03/04/2021 1:04 AM CDT) Magnesium 2.1 1.6 - 2.6 mg/dL 03/04/2021 1:40 AM CDT [facility] Blood BLOOD SPECIMEN / Unknown Venipuncture / Unknown 03/04/2021 1:04 AM CDT 03/04/2021 1:16 AM CDT Fredy Felipe MD LAB - CHEMISTRY JOSE ENRIQUE VELA Performing Organization Address [facility] Co de Phone Number [address] [address], [facility] [phone] * CALCIUM IONIZED WHOLE BLOOD (03/04/2021 1:04 AM CDT) Calcium Ionized 1.20 mmol/L 03/04/2021 1:19 AM CDT [facility] pH 7.41 7.35 - 7.45 pH 03/04/2021 1:19 AM CDT [facility] Ionized Calcium pH Adjusted 1.20 1.19 - 1.34 mmol/L 03/04/2021 1:19 AM CDT [facility] Blood BLOOD SPECIMEN / Unknown Venipuncture / Unknown 03/04/2021 1:04 AM CDT 03/04/2021 1:15 AM CDT Fredy Felipe MD LAB - CHEMISTRY JOSE ENRIQUE VELA [facility] [address] [place] [address], [facility] [phone] * CULTURE BLOOD (03/03/2021 8:20 AM CDT) Culture No growth day 5 [place] 03/08/2021 2:00 PM CDT [facility] Blood PERIPHERAL BLOOD / Unknown Venipuncture / Unknown 03/03/2021 8:20 AM CDT 03/03/2021 8:46 AM CDT Fredy Felipe MD LAB - MICROBIOLOGY O TIFFANY Performing Organization Address [facility]/ZIP Co de Phone Number [facility] [address] [place] [address], [facility] [phone] * CULTURE BLOOD (03/03/2021 8:00 AM CDT) Culture No growth day 5 [place] 03/08/2021 2:00 PM CDT [facility] Blood PERIPHERAL BLOOD / Unknown Venipuncture / Unknown 03/03/2021 8:00 AM CDT 03/03/2021 8:46 AM CDT Fredy Felipe MD LAB - MICROBIOLOGY O RDTERESA Performing Organization Address [facility] Co de Phone Number [facility] [address] [place] [address], [facility] [phone] * XR CHEST 1VW PORTABLE (03/03/2021 4:56 AM CDT) Anatomical Region Laterality Modality Chest Radiographic Sera ging 03/03/2021 2:58 PM CDT Impressions 03/03/2021 3:48 PM CDT FINDINGS/IMPRESSION: The midthoracic trachea. There has been interval removal of the enteric tube. A right subclavian approach central venous catheter tip superimposes the superior vena cava. Low lung volumes with Resultant bronchovascular crowding. Patchy airspace opacities are slightly improved on the right and unchanged on the left. There is linear right basilar atelectasis. There is no pleural effusion or pneumothorax. The cardiomediastinal silhouette is normal. Dictated by Ivette Fortune DO (resident). Dr. NAOMY Yao MD, FRCR have personally reviewed and interpreted this examination/study. This report was electronically signed by NAOMY LAZO MD, FRKEN ??on 03/03/2021 3:48 PM . Narrative 03/03/2021 3:48 PM CDT ORDER DATE: 03/03/2021 4:57 AM EXAMINATION: XR CHEST 1VW PORTABLE HISTORY: T14.90XA: Trauma COMPARISON: Chest radiograph from 03/02/2021. Procedure Note Naomy Lazo MD - 03/03/2021 ORDER DATE: 03/03/2021 4:57 AM EXAMINATION: XR CHEST 1VW PORTABLE HISTORY: T14.90XA: Trauma COMPARISON: Chest radiograph from 03/02/2021. FINDINGS/IMPRESSION: The midthoracic trachea. There has been interval removal of the enteric tube. A right subclavian approach central venous catheter tipsuperimposes the superior vena cava. Low lung volumes with Resultant bronchovascular crowding. Patchyairspace opacities are slightly improved on the right and unchanged on the left. There is linear right basilar atelectasis. There is no pleural effusionor pneumothorax. The cardiomediastinal silhouette is normal. Dictated by Ivette Fortune DO (resident). Dr. NAOMY Yao MD, FRCR have personally reviewedand interpreted this examination/study. This report was electronically signed by NAOMY LAZO MD, FRCR on 03/03/2021 3:48 PM . Fredy Felipe MD DIAGNOSTIC IMAGING O RDERABLES * (ABNORMAL) DIFFERENTIAL MANUAL (03/02/2021 11:41 PM CDT) WBC (corrected for NRBC) 20.3 10? 3 /uL 03/03/2021 12:26 AM CDT [facility] Total Cell Count 100 03/03/2021 12:26 AM [facility] Neutrophils Absolute Manual 17.26(H) 1.60 - 7.00 10? 3 /uL 03/03/2021 12:26 AM [facility] Comment:(BANDS+SEGS) x WBC = NEUT # (ANC) Lymphocyte Absolute Manual 1.22 1.10 - 3.90 10? 3 /uL 03/03/2021 12:26 AM [facility] Monocytes Absolute Manual 1.42(H) 0.26 - 1.07 10? 3 /uL 03/03/2021 12:26 AM [facility] Eosinophils Absolute Manual 0.41 0.00 - 0.47 10? 3 /uL 03/03/2021 12:26 AM [facility] Band % Manual 1 0 - 10 % 03/03/2021 12:26 AM [facility] Neutrophil % Manual 84(H) 35 - 70 % 03/03/2021 12:26 AM [facility] Lymphocyte % Manual 6(L) 20 - 43 % 03/03/2021 12:26 AM [facility] Monocytes % Manual 7 5 - 13 % 03/03/2021 12:26 AM [facility] Eosinophils % Manual 2 0 - 6 % 03/03/2021 12:26 AM [facility] Platelet Estimate Increased(A) Adequate 03/03/2021 12:26 AM [facility] RBC Morphology Normal 03/03/2021 12:26 AM [facility] Comment Platelet Platelet clumpled on the smear but appear increased. 03/03/2021 12:26 AM [facility] Blood BLOOD SPECIMEN / Unknown Venipuncture / Unknown 03/02/2021 11:41 PM CDT 03/02/2021 11:45 PM CDT Fredy Felipe MD LAB - HEMATOLOGY ORD ERABLES [facility] [address] [place] [address], [facility] [phone] * (ABNORMAL) TRIGLYCERIDES BLOOD (03/02/2021 11:41 PM CDT) Triglycerides 474(H) <150 mg/dL 03/03/2021 12:10 AM [facility] Comment: ATP III Classification of Triglycerides: ?<150 mg/dL: ??Normal ? 150 - 199 mg/dL: ??Borderline High ? 200 - 400 mg/dL: ??High ?>500 mg/dL: ??Very High Blood BLOOD SPECIMEN / Unknown Venipuncture / Unknown 03/02/2021 11:41 PM CDT 03/02/2021 11:45 PM CDT Kelvin Stewart MD LAB - CHEMISTRY ORD ERABLES [facility] [address] [place] [address], [facility] [phone] * (ABNORMAL) CBC W AUTO DIFFERENTIAL (03/02/2021 11:41 PM CDT) [facility] WBC 20.3(H) 3.5 - 10.5 10? 3 /uL 03/02/2021 11:50 PM [facility] RBC 3.67(L) 4.30 - 5.70 10? 6 /uL 03/02/2021 11:50 PM [facility] Hemoglobin 10.2(L) 12.0 - 17.6 g/dL 03/02/2021 11:50 PM [facility] Hematocrit 32.0(L) 35.2 - 51.7 % 03/02/2021 11:50 PM [facility] MCV 87.2 80.7 - 98.3 fL 03/02/2021 11:50 PM [facility] MCH 27.8 26.7 - 34.0 pg 03/02/2021 11:50 PM [facility] MCHC 31.9 30.8 - 35.9 g/dL 03/02/2021 11:50 PM [facility] Platelet Count 623(H) 150 - 400 10? 3 /uL 03/02/2021 11:50 PM [facility] RDW-SD 43.9 36.0 - 50.0 fL 03/02/2021 11:50 PM [facility] RDW-CV 13.7 11.2 - 14.8 % 03/02/2021 11:50 PM [facility] MPV 8.6(L) 9.4 - 12.9 fL 03/02/2021 11:50 PM [facility] nRBC Absolute 0.00 0 10? 3 /uL 03/02/2021 11:50 PM [facility] nRBC Auto 0.0 0 /100 WBC 03/02/2021 11:50 PM [facility] Blood BLOOD SPECIMEN / Unknown Venipuncture / Unknown 03/02/2021 11:41 PM CDT 03/02/2021 11:45 PM CDT Fredy Felipe MD LAB - HEMATOLOGY ORD ERABLES Performing Organization Address City/State/[facility] Co de Phone Number [facility] [address] [place] [address] [phone] * (ABNORMAL) BASIC METABOLIC PANEL (CALCIUM TOTAL) (03/02/2021 11:41 PM CDT) BUN 19 7 - 26 mg/dL 03/03/2021 12:10 AM [facility] Creatinine 1.30(H) 0.71 - 1.16 mg/dL 03/03/2021 12:10 AM [facility] Sodium 142 136 - 145 mmol/L 03/03/2021 12:10 AM [facility] Potassium 3.7 3.5 - 4.5 mmol/L 03/03/2021 12:10 AM [facility] Chloride 108(H) 98 - 107 mmol/L 03/03/2021 12:10 AM [facility] CO2 21(L) 22 - 29 mmol/L 03/03/2021 12:10 AM [facility] Glucose 104 70 - 115 mg/dL 03/03/2021 12:10 AM [facility] Calcium 9.1 8.4 - 10.2 mg/dL 03/03/2021 12:10 AM [facility] Anion Gap 17 8 - 18 03/03/2021 12:10 AM [facility] BUN/Creatinine Ratio 15 7 - 23 03/03/2021 12:10 AM [facility] Osmolality Calculated 297 270 - 300 mOsm/kg 03/03/2021 12:10 AM [facility] eGFR by CKD-EPI 71(L) >=90 mL/min/1.7 3 m2 03/03/2021 12:10 AM [facility] Blood BLOOD SPECIMEN / Unknown Venipuncture / Unknown 03/02/2021 11:41 PM CDT 03/02/2021 11:45 PM T Fredy Felipe MD LAB - CHEMISTRY JOSE [facility]RIQUE [facility] Organization Address City/State/ZIP Co de Phone Number [facility] [address] [place] [address], [facility] [phone] * (ABNORMAL) BLOOD GASES ART + COOX PANEL (03/02/2021 11:41 PM CDT) pH Arterial 7.52(H) 7.35 - 7.45 pH 03/02/2021 11:46 PM [facility] pO2 Arterial 160(H) 80 - 100 mmHg 03/02/2021 11:46 PM [facility] pCO2 Arterial 29(L) 35 - 45 mmHg 11:46 PM [facility] HCO3 Arterial 24 20 - 30 mmol/l 03/02/2021 11:46 PM [facility] BE Arterial 1.4 -2.0 - 2.0 mmol/L 03/02/2021 11:46 PM [facility] Oxyhemoglobin Arterial 96.3 % 03/02/2021 11:46 PM [facility] Dexoyhemoglobin (HHB) % 0.1 % 03/02/2021 11:46 PM [facility] Methemoglobin 0.9 0.0 - 2.0 % 03/02/2021 11:46 PM [facility] Carboxyhemoglobin 2.7(H) 0.0 - 2.0 % 2020 11:46 PM CDT [facility] O2 Content Arterial 15.2 Interpret within clinical context mg/dL 03/02/2021 11:46 PM T [facility] Hemoglobin by COOX 11.0(L) 12.0 - 17.6 g/dL 03/02/2021 11:46 PM T [facility] O2 Saturation Arterial 100 90 - 100 % 03/02/2021 11:46 PM T [facility] FI O2 Arterial 40.0 % 03/02/2021 11:46 PM T [facility] Blood, arterial ARTERIAL BLOOD SPECIMEN / Unknown Arterial Puncture / Unknown 03/02/2021 11:41 PM CDT 03/02/2021 11:44 PM CDT Narrative [facility] - 03/02/2021 11:46 PM CDT Carboxyhemoglobin Normal Concentration: Non-smokers: 0-2%; Smokers: 0-9%; Toxic: >20% Fredy Felipe MD LAB - BLOOD GASES OR DERABLES Performing Organization Address [facility] Co de Phone Number [facility] [address] [place] [address] [phone] * PT-INR [facility] (03/02/2021 11:41 PM CDT) PT 14.8 12.1 - 14.8 Seconds 03/03/2021 1:38 AM [facility] INR 1.2 See Comment 03/03/2021 1:38 AM [facility] Comment:The suggested therap eutic range for standard coumadin (warfarin) therapy is an INR of 2.0-3.0. For high-risk patients (Mechanical Mitral Valve Prosthesis, etc.), the suggested prophylactic therapeutic range is an INR of 2.5-3.5. Blood BLOOD SPECIMEN / Unknown Venipuncture / Unknown 03/02/2021 11:41 PM CDT 03/02/2021 11:52 PM CDT Fredy Felipe MD LAB - COAGULATION OR DERABLES [facility] [address] [place] [address], [facility] [phone] * PHOSPHORUS BLOOD (03/02/2021 11:41 PM CDT) Phosphorus 4.0 2.8 - 5.1 mg/dL 03/03/2021 12:10 AM CDT [facility] Blood BLOOD SPECIMEN / Unknown Venipuncture / Unknown 03/02/2021 11:41 PM CDT 03/02/2021 11:45 PM CDT Fredy Felipe MD LAB - CHEMISTRY JOSE ENRIQUE VELA [address] [address], [facility] [phone] * MAGNESIUM BLOOD (03/02/2021 11:41 PM CDT) Magnesium 2.1 1.6 - 2.6 mg/dL 03/03/2021 12:10 AM CDT [facility] Blood BLOOD SPECIMEN / Unknown Venipuncture / Unknown 03/02/2021 11:41 PM CDT 03/02/2021 11:45 PM CDT Fredy Felipe MD LAB - CHEMISTRY JOSE ENRIQUE VELA Performing Organization Address City/[facility]/ZIP Co de Phone Number [address] [address], [facility] [phone] * (ABNORMAL) CALCIUM IONIZED WHOLE BLOOD (03/02/2021 11:41 PM CDT) Calcium Ionized 1.21 mmol/L 03/02/2021 11:47 PM CDT [facility] pH 7.49(H) 7.35 - 7.45 pH 03/02/2021 11:47 PM CDT [facility] Ionized Calcium pH Adjusted 1.26 1.19 - 1.34 mmol/L 03/02/2021 11:47 PM CDT [facility] Blood BLOOD SPECIMEN / Unknown Venipuncture / Unknown 03/02/2021 11:41 PM CDT 03/02/2021 11:44 PM CDT Fredy Felipe MD LAB - CHEMISTRY JOSE ENRIQUE VELA [facility] [address] [place] [address], [facility] [phone] * (ABNORMAL) URINALYSIS REFLEX TO MICROSCOPIC NO CULTURE (03/02/2021 6:52 PM CDT) Color UA Janis(A) Straw, Yellow 03/02/2021 7:39 PM CDT [facility] Clarity UA Slt Cloudy(A) Clear 03/02/2021 7:39 PM T [facility] Specific [place] UA 1.031(H) 1.005 - 1.030 03/02/2021 7:39 PM CDT [facility] pH UA 5.0 5.0 - 8.0 pH 03/02/2021 7:39 PM T [facility] Protein UA 2+(A) Negative 03/02/2021 7:39 PM T [facility] Glucose UA Negative Negative 03/02/2021 7:39 PM [facility] Ketone UA Trace(A) Negative 03/02/2021 7:39 PM [facility] Bilirubin UA Negative Negative 03/02/2021 7:39 PM T [facility] Blood UA 2+(A) Negative 03/02/2021 7:39 PM [facility] Nitrite UA Negative Negative 03/02/2021 7:39 PM [facility] Leukocyte Esterase Negative Negative 03/02/2021 7:39 PM T [facility] Urobilinogen UA Negative Negative mg/dL 03/02/2021 7:39 PM [facility] RBC UA 21-50(A) None Seen, 0-2, 3-5 /HPF 03/02/2021 7:39 PM [facility] WBC UA 6-10(A) None Seen, 0-5 /HPF 03/02/2021 7:39 PM [facility] Bacteria UA Trace(A) None /HPF 03/02/2021 7:39 PM [facility] Squamous Epithelial Cells UA None Seen None Seen, 0-2, 3-5 /HPF 03/02/2021 7:39 PM CDT [facility] Mucus UA 1+ /LPF 03/02/2021 7:39 PM CDT [facility] Urine URINE SPECIMEN OBTAINED VIA [employer] URINARY CATHETER / Unknown Collection / Unknown 03/02/2021 6:52 PM CDT 03/02/2021 7:00 PM CDT Narrative [facility] - 03/02/2021 7:39 PM CDT Delilah Stubbs APRN-Tal METAL WASHING MACHINE OPERATOR LAB - URINALYSIS ORDERABLES [address] [address], [facility] [phone] * UREA NITROGEN URINE RANDOM (03/02/2021 6:52 PM CDT) Urea Nitrogen Random Urine 1,057 Not Established mg/dL 03/02/2021 7:33 PM CDT [facility] Urine URINE SPECIMEN OBTAINED BY CLEAN CATCH PROCEDURE / Unknown Collection / Unknown 03/02/2021 6:52 PM CDT 03/02/2021 7:00 PM CDT Delilah Stubbs APRN-Tal METAL WASHING MACHINE OPERATOR LAB - URINE CHEMISTRY ORDERABLES [address] [address], [place] [phone] * CHLORIDE URINE RANDOM (03/02/2021 6:52 PM CDT) Chloride Random Urine 45 Not Established mmol/L 03/02/2021 7:33 PM CDT [facility] Urine URINE SPECIMEN OBTAINED BY CLEAN CATCH PROCEDURE / Unknown Collection / Unknown 03/02/2021 6:52 PM CDT 03/02/2021 7:00 PM CDT Delilah Stubbs APRN-Tal METAL WASHING MACHINE OPERATOR LAB - URINE CHEMISTRY ORDERABLES [address] [address], [facility] [phone] * LYTES (NA K) URINE RANDOM PANEL (03/02/2021 6:52 PM CDT) Sodium Urine 97 Not Established mmol/L 03/02/2021 7:33 PM CDT [facility] Potassium Urine 36.5 Not Established mmol/L 03/02/2021 7:33 PM CDT [facility] Urine URINE SPECIMEN OBTAINED BY CLEAN CATCH PROCEDURE / Unknown Collection / Unknown 03/02/2021 6:52 PM CDT 03/02/2021 7:00 PM CDT Delilah Stubbs APRN-C METAL WASHING MACHINE OPERATOR LAB - URINE CHEMISTRY ORDERABLES Performing Organization Address City/[facility]/ZIP Co de Phone Number [address] [address], [facility] [phone] * CREATININE URINE RANDOM (03/02/2021 6:52 PM CDT) Creatinine Urine 135 Not Established mg/dL 03/02/2021 7:33 PM CDT [facility] Urine URINE SPECIMEN OBTAINED BY CLEAN CATCH PROCEDURE / Unknown Collection / Unknown 03/02/2021 6:52 PM CDT 03/02/2021 7:00 PM CDT Delilah Stubbs APRN-Tal METAL WASHING MACHINE OPERATOR LAB - URINE CHEMISTRY ORDERABLES [address] [address], [facility] [phone] * (ABNORMAL) HEPATIC FUNCTION PANEL (03/02/2021 6:40 PM CDT) Protein Total 7.2 6.0 - 8.3 g/dL 7:40 PM CDT [facility] Albumin 1.8(L) 3.4 - 5.0 g/dL 03/02/2021 7:40 PM CDT [facility] Bilirubin Total 0.6 0.2 - 1.2 mg/dL 02/14 7:40 PM CDT [facility] Bilirubin Conjugated 0.3 0.1 - 0.5 mg/dL 03/02/2021 7:40 PM CDT [facility] Bilirubin Unconjugated 0.3 Unconjugated Bilirubin is a calculated value: Reference ranges have not been established. mg/dL 03/02/2021 7:40 PM CDT [facility] Alkaline Phosphatase 226(H) 40 - 150 U/L 03/02/2021 7:40 PM CDT [facility] ALT 27 5 - 55 U/L 03/02/2021 7:40 PM CDT [facility] AST 46(H) 5 - 34 U/L 03/02/2021 7:40 PM T [facility] Albumin/Globulin Ratio 0.3(L) 1.1 - 2.3 03/02/2021 7:40 PM T [facility] Blood BLOOD SPECIMEN / Unknown Venipuncture / Unknown 03/02/2021 6:40 PM CDT 03/02/2021 6:46 PM CDT Delilah Stubbs APRN-C METAL WASHING MACHINE OPERATOR LAB - CHEMISTRY ORDERABLES Performing Organization Address [facility]/State/[facility] Co de Phone Number [address] [address], [facility] [phone] * (ABNORMAL) BASIC METABOLIC PANEL (CALCIUM TOTAL) (03/02/2021 6:40 PM CDT) BUN 20 7 - 26 mg/dL 03/02/2021 7:40 PM CDT [facility] Creatinine 1.26(H) 0.71 - 1.16 mg/dL 03/02/2021 7:40 PM CDT [facility] Sodium 139 136 - 145 mmol/L 03/02/2021 7:40 PM CDT [facility] Potassium 3.8 3.5 - 4.5 mmol/L 03/02/2021 7:40 PM [facility] Chloride 105 98 - 107 mmol/L 03/02/2021 7:40 PM [facility] CO2 22 22 - 29 mmol/L 03/02/2021 7:40 PM [facility] Glucose 84 70 - 115 mg/dL 03/02/2021 7:40 PM [facility] Calcium 9.1 8.4 - 10.2 mg/dL 03/02/2021 7:40 PM [facility] Anion Gap 16 8 - 18 03/02/2021 7:40 PM [facility] BUN/Creatinine Ratio 16 7 - 23 03/02/2021 7:40 PM [facility] Osmolality Calculated 290 270 - 300 mOsm/kg 03/02/2021 7:40 PM [facility] eGFR by CKD-EPI 73(L) >=90 mL/min/1.7 3 m2 03/02/2021 7:40 PM [facility] Blood BLOOD SPECIMEN / Unknown Venipuncture / Unknown 03/02/2021 6:40 PM CDT 03/02/2021 6:46 PM CDT Delilah JEFFERY NP LAB - CHEMISTRY ORDERABLES [facility] [address] [place] [address], [facility] [phone] * (ABNORMAL) BLOOD GASES ART + COOX PANEL (03/02/2021 5:54 AM CDT) pH Arterial 7.52(H) 7.35 - 7.45 pH 03/02/2021 5:58 AM [facility] pO2 Arterial 163(H) 80 - 100 mmHg 03/02/2021 5:58 AM [facility] pCO2 Arterial 27(L) 35 - 45 mmHg 5:58 AM [facility] HCO3 Arterial 22 20 - 30 mmol/l 03/02/2021 5:58 AM [facility] BE Arterial 0.0 -2.0 - 2.0 mmol/L 03/02/2021 5:58 AM [facility] Oxyhemoglobin Arterial 96.4 % 03/02/2021 5:58 AM [facility] Dexoyhemoglobin (HHB) % 0.4 % 03/02/2021 5:58 AM [facility] Methemoglobin 0.9 0.0 - 2.0 % 03/02/2021 5:58 AM [facility] Carboxyhemoglobin 2.4(H) 0.0 - 2.0 % 2020 5:58 AM [facility] O2 Content Arterial 15.1 Interpret within clinical context mg/dL 03/02/2021 5:58 AM [facility] Hemoglobin by COOX 10.9(L) 12.0 - 17.6 g/dL 03/02/2021 5:58 AM [facility] O2 Saturation Arterial 100 90 - 100 % 03/02/2021 5:58 AM [facility] FI O2 Arterial 40.0 % 03/02/2021 5:58 AM [facility] Blood, arterial ARTERIAL BLOOD SPECIMEN / Unknown Arterial Puncture / Unknown 03/02/2021 5:54 AM CDT 03/02/2021 5:56 AM T [facility] - 03/02/2021 5:58 AM CDT Carboxyhemoglobin Normal Concentration: Non-smokers: 0-2%; Smokers: 0-9%; Toxic: >20% Fredy Felipe MD LAB - BLOOD GASES OR DERABLES Performing Organization Address City/State/[facility] Co de Phone Number [facility] [address] [place] [phone], [facility] [phone] * XR CHEST 1VW PORTABLE (03/02/2021 4:22 AM CDT) Anatomical Region Laterality Modality Chest Radiographic Sera ging 03/02/2021 4:23 AM CDT Impressions 03/02/2021 11:30 AM CDT FINDINGS/IMPRESSION: Lines and tubes: *Endotracheal tube terminates in the midthoracic trachea. *NG/OG tube courses below the diaphragm, tip out of field of view. *Right upper extremity PICC terminates in the upper superior vena cava. Low lung volumes with associated bronchovascular crowding and compressive atelectasis. Mild right hemidiaphragm elevation. Interval increase in right-sided patchy opacities, likely representing evolving pulmonary contusion the setting of trauma, though atelectasis and/or airspace disease cannot be completely excluded. Mild left basilar/retrocardiac opacity, likely representing atelectasis and/or airspace disease. Trace bilateral pleural effusions are likely. No pneumothorax. The cardiomediastinal silhouette remains partially obscured, but stable. Dictated by Uyen Garcia MD (residential leasing manager). This report was approved ??by Uyen Garcia ?? on 03/02/2021 11:30 AM . I, Dr. JASWINDER CARRION have personally reviewed and interpreted this examination/study. This report was electronically signed by JASWINDER CARRION ??on 03/02/2021 11:30 AM . Narrative 03/02/2021 11:30 AM CDT EXAMINATION: XR CHEST 1VW PORTABLE HISTORY: T14.90XA: Trauma COMPARISON: Chest x-ray dated 03/01/2021 Procedure Note Jaswinder Carrion MD - 03/02/2021 EXAMINATION: XR CHEST 1VW PORTABLE HISTORY: T14.90XA: Trauma COMPARISON: Chest x-ray dated 03/01/2021 FINDINGS/IMPRESSION: Lines and tubes: *Endotracheal tube terminates in the midthoracic trachea. *NG/OG tube courses below the diaphragm, tip out of field of view. *Right upper extremity PICC terminates in the upper superior vena cava. Low lung volumes with associated bronchovascular crowding andcompressive atelectasis. Mild right hemidiaphragm elevation. Interval increase in right-sided patchy opacities, likely representing evolving pulmonary contusion the setting of trauma, though atelectasis and/or airspace disease cannot be completely excluded. Mild left basilar/retrocardiac opacity, likely representing atelectasis and/or airspace disease. Trace bilateral pleural effusions are likely. No pneumothorax. The cardiomediastinal silhouette remains partially obscured, but stable. Dictated by Uyen Garcia MD (residential leasing manager). This report was approved by Uyen Garcia on 03/02/2021 11:30 AM . I, Dr. JASWINDER CARRION have personally reviewed and interpreted this examination/study. This report was electronically signed by JASWINDER CARRION on 03/02/2021 11:30 AM . Fredy Felipe MD DIAGNOSTIC IMAGING O RDERABLES * (ABNORMAL) DIFFERENTIAL MANUAL (03/01/2021 11:16 PM CDT) WBC (corrected for NRBC) 17.9 10? 3 /uL 03/02/2021 12:17 AM [facility] Total Cell Count 100 03/02/2021 12:17 AM [facility] Neutrophils Absolute Manual 14.50(H) 1.60 - 7.00 10? 3 /uL 03/02/2021 12:17 AM [facility] Comment:(BANDS+SEGS) x WBC = NEUT # (ANC) Lymphocyte Absolute Manual 0.36(L) 1.10 - 3.90 10? 3 /uL 03/02/2021 12:17 AM [facility] Monocytes Absolute Manual 2.51(H) 0.26 - 1.07 10? 3 /uL 03/02/2021 12:17 AM [facility] Eosinophils Absolute Manual 0.36 0.00 - 0.47 10? 3 /uL 03/02/2021 12:17 AM [facility] Basophil Absolute Manual 0.18(H) 0.00 - 0.08 10? 3 /uL 03/02/2021 12:17 AM [facility] Neutrophil % Manual 81(H) 35 - 70 % 03/02/2021 12:17 AM [facility] Lymphocyte % Manual 2(L) 20 - 43 % 03/02/2021 12:17 AM [facility] Monocytes % Manual 14(H) 5 - 13 % 03/02/2021 12:17 AM [facility] Eosinophils % Manual 2 0 - 6 % 03/02/2021 12:17 AM [facility] Basophils % Manual 1 0 - 2 % 03/02/2021 12:17 AM [facility] Platelet Estimate Increased( A) Adequate 03/02/2021 12:17 AM [facility] RBC Morphology Normal 03/02/2021 12:17 AM [facility] Blood BLOOD SPECIMEN / Unknown Venipuncture / Unknown 03/01/2021 11:16 PM CDT 03/01/2021 11:21 PM CDT Fredy Felipe MD LAB - HEMATOLOGY ORD ERABLES Performing Organization Address City/[facility]/ZIP Co de Phone Number [facility] [address] [place] [address], [facility] [phone] * (ABNORMAL) HEPATIC FUNCTION PANEL (03/01/2021 11:16 PM CDT) Protein Total 6.7 6.0 - 8.3 g/dL 021 11:46 PM [facility] Albumin 1.5(L) 3.4 - 5.0 g/dL 03/01/2021 11:46 PM [facility] Bilirubin Total 0.6 0.2 - 1.2 mg/dL 02/14 11:46 PM [facility] Bilirubin Conjugated 0.5 0.1 - 0.5 mg/dL 03/01/2021 11:46 PM [facility] Bilirubin Unconjugated 0.1 Unconjugated Bilirubin is a calculated value: Reference ranges have not been established. mg/dL 03/01/2021 11:46 PM [facility] Alkaline Phosphatase 270(H) 40 - 150 U/L 03/01/2021 11:46 PM [facility] ALT 32 5 - 55 U/L 03/01/2021 11:46 PM [facility] AST 58(H) 5 - 34 U/L 03/01/2021 11:46 PM [facility] Albumin/Globulin Ratio 0.3(L) 1.1 - 2.3 03/01/2021 11:46 PM [facility] Blood BLOOD SPECIMEN / Unknown Venipuncture / Unknown 03/01/2021 11:16 PM CDT 03/01/2021 11:21 PM CDT Fredy Felpie MD LAB - CHEMISTRY JOSE ENRIQUE VELA [facility] Organization Address City/State/ZIP Co de Phone Number [facility] [address] [place] [phone], [facility] [phone] * (ABNORMAL) CBC W AUTO DIFFERENTIAL (03/01/2021 11:16 PM CDT) WBC 17.9(H) 3.5 - 10.5 10? 3 /uL 03/01/2021 11:29 PM [facility] RBC 3.85(L) 4.30 - 5.70 10? 6 /uL 03/01/2021 11:29 PM [facility] Hemoglobin 10.6(L) 12.0 - 17.6 g/dL 03/01/2021 11:29 PM [facility] Hematocrit 33.0(L) 35.2 - 51.7 % 03/01/2021 11:29 PM [facility] MCV 85.7 80.7 - 98.3 fL 03/01/2021 11:29 PM [facility] MCH 27.5 26.7 - 34.0 pg 03/01/2021 11:29 PM [facility] MCHC 32.1 30.8 - 35.9 g/dL 03/01/2021 11:29 PM [facility] Platelet Count 615(H) 150 - 400 10? 3 /uL 03/01/2021 11:29 PM [facility] RDW-SD 42.8 36.0 - 50.0 fL 03/01/2021 11:29 PM [facility] RDW-CV 13.7 11.2 - 14.8 % 03/01/2021 11:29 PM [facility] MPV 8.7(L) 9.4 - 12.9 fL 03/01/2021 11:29 PM [facility] nRBC Absolute 0.00 0 10? 3 /uL 03/01/2021 11:29 PM [facility] nRBC Auto 0.0 0 /100 WBC 03/01/2021 11:29 PM [facility] Blood BLOOD SPECIMEN / Unknown Venipuncture / Unknown 03/01/2021 11:16 PM CDT 03/01/2021 11:21 PM CDT Fredy Felipe MD LAB - HEMATOLOGY ORD ERABLES [facility] [address] [place] [address], [facility] [phone] * (ABNORMAL) BASIC METABOLIC PANEL (CALCIUM TOTAL) (03/01/2021 11:16 PM CDT) BUN 21 7 - 26 mg/dL 03/01/2021 11:46 PM [facility] Creatinine 1.35(H) 0.71 - 1.16 mg/dL 03/01/2021 11:46 PM [facility] Sodium 142 136 - 145 mmol/L 03/01/2021 11:46 PM [facility] Potassium 3.7 3.5 - 4.5 mmol/L 03/01/2021 11:46 PM [facility] Chloride 108(H) 98 - 107 mmol/L 03/01/2021 11:46 PM [facility] CO2 20(L) 22 - 29 mmol/L 03/01/2021 11:46 PM [facility] Glucose 93 70 - 115 mg/dL 03/01/2021 11:46 PM [facility] Calcium 9.0 8.4 - 10.2 mg/dL 03/01/2021 11:46 PM [facility] Anion Gap 18 8 - 18 03/01/2021 11:46 PM [facility] BUN/Creatinine Ratio 16 7 - 23 03/01/2021 11:46 PM [facility] Osmolality Calculated 297 270 - 300 mOsm/kg 03/01/2021 11:46 PM [facility] eGFR by CKD-EPI 68(L) >=90 mL/min/1.7 3 m2 03/01/2021 11:46 PM [facility] Blood BLOOD SPECIMEN / Unknown Venipuncture / Unknown 03/01/2021 11:16 PM CDT 03/01/2021 11:21 PM CDT Fredy Felipe MD LAB - CHEMISTRY JOSE ENRIQUE Pena Organization Address City/State/ZIP Co de Phone Number [facility] [address] [place] [address], [facility] [phone] * (ABNORMAL) BLOOD GASES ART + COOX PANEL (03/01/2021 11:16 PM CDT) pH Arterial 7.58(H) 7.35 - 7.45 pH 03/01/2021 11:22 PM [facility] pO2 Arterial 164(H) 80 - 100 mmHg 03/01/2021 11:22 PM [facility] pCO2 Arterial 24(L) 35 - 45 mmHg 11:22 PM [facility] HCO3 Arterial 23 20 - 30 mmol/l 03/01/2021 11:22 PM [facility] BE Arterial 1.7 -2.0 - 2.0 mmol/L 03/01/2021 11:22 PM [facility] Oxyhemoglobin Arterial 96.4 % 03/01/2021 11:22 PM [facility] Dexoyhemoglobin (HHB) % 0.4 % 03/01/2021 11:22 PM [facility] Methemoglobin 1.3 0.0 - 2.0 % 03/01/2021 11:22 PM [facility] Carboxyhemoglobin 1.9 0.0 - 2.0 % 2020 11:22 PM [facility] O2 Content Arterial 15.8 Interpret within clinical context mg/dL 03/01/2021 11:22 PM [facility] Hemoglobin by COOX 11.4(L) 12.0 - 17.6 g/dL 03/01/2021 11:22 PM [facility] O2 Saturation Arterial 100 90 - 100 % 03/01/2021 11:22 PM [facility] FI O2 Arterial 40.0 % 03/01/2021 11:22 PM [facility] Blood, arterial ARTERIAL BLOOD SPECIMEN / Unknown Arterial Puncture / Unknown 03/01/2021 11:16 PM CDT 03/01/2021 11:20 PM CDT Narrative [facility] - 03/01/2021 11:22 PM CDT Carboxyhemoglobin Normal Concentration: Non-smokers: 0-2%; Smokers: 0-9%; Toxic: >20% Fredy Felipe MD LAB - BLOOD GASES OR DERABLES Performing Organization Address [facility] Co de Phone Number [address] [address], [facility] [phone] * (ABNORMAL) PT-INR [facility] (03/01/2021 11:16 PM CDT) PT 14.9(H) 12.1 - 14.8 Seconds 03/01/2021 11:34 PM CDT [facility] INR 1.2 See Comment 03/01/2021 11:34 PM CDT [facility] Comment:The suggested therap eutic range for standard coumadin (warfarin) therapy is an INR of 2.0-3.0. For high-risk patients (Mechanical Mitral Valve Prosthesis, etc.), the suggested prophylactic therapeutic range is an INR of 2.5-3.5. Blood BLOOD SPECIMEN / Unknown Venipuncture / Unknown 03/01/2021 11:16 PM CDT 03/01/2021 11:20 PM CDT Fredy Felipe MD LAB - COAGULATION OR DERABLES Performing Organization Address City/[facility] Co de Phone Number [address] [address], [facility] [phone] * PHOSPHORUS BLOOD (03/01/2021 11:16 PM CDT) Phosphorus 3.7 2.8 - 5.1 mg/dL 03/01/2021 11:46 PM CDT [facility] Blood BLOOD SPECIMEN / Unknown Venipuncture / Unknown 03/01/2021 11:16 PM CDT 03/01/2021 11:21 PM CDT Fredy Felipe MD LAB - CHEMISTRY [facility] [address] [place] [address], [place] [phone] * MAGNESIUM BLOOD (03/01/2021 11:16 PM CDT) Pathologist [facility] Magnesium 2.1 1.6 - 2.6 mg/dL 03/01/2021 11:46 PM CDT [facility] Blood BLOOD SPECIMEN / Unknown Venipuncture / Unknown 03/01/2021 11:16 PM CDT 03/01/2021 11:21 PM CDT Fredy Felipe MD LAB - CHEMISTRY [facility] [address] [address], [place] [phone] * (ABNORMAL) CALCIUM IONIZED WHOLE BLOOD (03/01/2021 11:16 PM CDT) Pathologist [facility] Calcium Ionized 1.18 mmol/L 03/01/2021 11:22 PM CDT [facility] pH 7.57(H) 7.35 - 7.45 pH 03/01/2021 11:22 PM CDT [facility] Ionized Calcium pH Adjusted 1.27 1.19 - 1.34 mmol/L 03/01/2021 11:22 PM CDT [facility] Blood BLOOD SPECIMEN / Unknown Venipuncture / Unknown 03/01/2021 11:16 PM CDT 03/01/2021 11:20 PM CDT Fredy Felipe MD LAB - CHEMISTRY [facility] [address] [address], [place] [phone] * XR CHEST 1VW PORTABLE (03/01/2021 4:20 AM CDT) Anatomical Region Laterality Modality Chest Radiographic Sera ging 03/03/2021 9:17 AM CDT Narrative 03/03/2021 3:30 PM CDT EXAMINATION: XR CHEST 1VW PORTABLE HISTORY: T14.90XA: Trauma COMPARISON: chest radiograph on 02/28/2021 FINDINGS: An endotracheal tube terminates in the mid trachea. A gastric tube extends below the diaphragm out of the field of view. A right subclavian approach catheter terminates in the SVC. The right hemidiaphragm is elevated. Patchy perihilar and lower lobe lung opacities are reidentified without significant change from previous radiograph. No large pleural effusion or pneumothorax is seen. Report drafted by Keo Hernandez M.D. (resident) Dr. NAOMY Yao MD, FRKEN have personally reviewed and interpreted this examination/study. This report was electronically signed by NAOMY LAZO MD, FRCR ??on 03/03/2021 3:30 PM . Procedure Note Naomy Lazo MD - 03/03/2021 EXAMINATION: XR CHEST 1VW PORTABLE HISTORY: T14.90XA: Trauma COMPARISON: chest radiograph on 02/28/2021 FINDINGS: An endotracheal tube terminates in the mid trachea. A gastric tubeextends below the diaphragm out of the field of view. A right subclavianapproach catheter terminates in the SVC. The right hemidiaphragm is elevated. Patchy perihilar and lower lobe lung opacities are reidentified without significant change from previous radiograph. No large pleural effusion or pneumothorax is seen. Report drafted by Keo Hernandez M.D. (resident) Dr. NAOMY Yao MD, FRKEN have personally reviewedand interpreted this examination/study. This report was electronically signed by NAOMY LAZO MD, FRKEN on 03/03/2021 3:30 PM . Fredy Felipe MD DIAGNOSTIC IMAGING O RDERABLES * (ABNORMAL) DIFFERENTIAL MANUAL (03/01/2021 12:11 AM CDT) WBC (corrected for NRBC) 15.6 10? 3 /uL 03/01/2021 1:34 AM [facility] Total Cell Count 100 03/01/2021 1:34 AM [facility] Neutrophils Absolute Manual 12.01(H) 1.60 - 7.00 10? 3 /uL 03/01/2021 1:34 AM [facility] Comment:(BANDS+SEGS) x WBC = NEUT # (ANC) Lymphocyte Absolute Manual 1.09(L) 1.10 - 3.90 10? 3 /uL 03/01/2021 1:34 AM [facility] Monocytes Absolute Manual 1.87(H) 0.26 - 1.07 10? 3 /uL 03/01/2021 1:34 AM [facility] Eosinophils Absolute Manual 0.62(H) 0.00 - 0.47 10? 3 /uL 03/01/2021 1:34 AM [facility] Neutrophil % Manual 77(H) 35 - 70 % 03/01/2021 1:34 AM [facility] Lymphocyte % Manual 7(L) 20 - 43 % 03/01/2021 1:34 AM [facility] Monocytes % Manual 12 5 - 13 % 03/01/2021 1:34 AM [facility] Eosinophils % Manual 4 0 - 6 % 03/01/2021 1:34 AM [facility] Platelet Estimate Increased( A) Adequate 03/01/2021 1:34 AM [facility] RBC Morphology Normal 03/01/2021 1:34 AM [facility] Blood BLOOD SPECIMEN / Unknown Venipuncture / Unknown 03/01/2021 12:11 AM CDT 03/01/2021 12:18 AM CDT Fredy Felipe MD LAB - HEMATOLOGY ORD ERABLES [facility] [address] [place] [phone], [facility] [phone] * (ABNORMAL) CBC W AUTO DIFFERENTIAL (03/01/2021 12:11 AM CDT) WBC 15.6(H) 3.5 - 10.5 10? 3 /uL 03/01/2021 12:42 AM [facility] RBC 3.88(L) 4.30 - 5.70 10? 6 /uL 03/01/2021 12:42 AM [facility] Hemoglobin 10.6(L) 12.0 - 17.6 g/dL 03/01/2021 12:42 AM [facility] Hematocrit 32.8(L) 35.2 - 51.7 % 03/01/2021 12:42 AM [facility] MCV 84.5 80.7 - 98.3 fL 03/01/2021 12:42 AM [facility] MCH 27.3 26.7 - 34.0 pg 03/01/2021 12:42 AM [facility] MCHC 32.3 30.8 - 35.9 g/dL 03/01/2021 12:42 AM [facility] Platelet Count 573(H) 150 - 400 10? 3 /uL 03/01/2021 12:42 AM [facility] RDW-SD 42.7 36.0 - 50.0 fL 03/01/2021 12:42 AM [facility] RDW-CV 13.7 11.2 - 14.8 % 03/01/2021 12:42 AM [facility] MPV 8.8(L) 9.4 - 12.9 fL 03/01/2021 12:42 AM [facility] nRBC Absolute 0.00 0 10? 3 /uL 03/01/2021 12:42 AM [facility] nRBC Auto 0.0 0 /100 WBC 03/01/2021 12:42 AM [facility] Immature Platelet Fraction 0.6(L) 1.1 - 6.2 % 03/01/2021 12:42 AM [facility] Blood BLOOD SPECIMEN / Unknown Venipuncture / Unknown 03/01/2021 12:11 AM CDT 03/01/2021 12:18 AM CDT Fredy Felipe MD LAB - HEMATOLOGY ORD ERABLES [facility] [address] [place] [address], [facility] [phone] * (ABNORMAL) BASIC METABOLIC PANEL (CALCIUM TOTAL) (03/01/2021 12:11 AM T) BUN 23 7 - 26 mg/dL 03/01/2021 12:42 AM [facility] Creatinine 1.21(H) 0.71 - 1.16 mg/dL 03/01/2021 12:42 AM [facility] Sodium 141 136 - 145 mmol/L 03/01/2021 12:42 AM [facility] Potassium 3.9 3.5 - 4.5 mmol/L 03/01/2021 12:42 AM [facility] Chloride 107 98 - 107 mmol/L 03/01/2021 12:42 AM [facility] CO2 21(L) 22 - 29 mmol/L 03/01/2021 12:42 AM [facility] Glucose 93 70 - 115 mg/dL 03/01/2021 12:42 AM [facility] Calcium 9.3 8.4 - 10.2 mg/dL 03/01/2021 12:42 AM [facility] Anion Gap 17 8 - 18 03/01/2021 12:42 AM [facility] BUN/Creatinine Ratio 19 7 - 23 03/01/2021 12:42 AM [facility] Osmolality Calculated 295 270 - 300 mOsm/kg 03/01/2021 12:42 AM [facility] eGFR by CKD-EPI 77(L) >=90 mL/min/1.7 3 m2 03/01/2021 12:42 AM [facility] Blood BLOOD SPECIMEN / Unknown Venipuncture / Unknown 03/01/2021 12:11 AM CDT 03/01/2021 12:18 AM [facility] Fredy Felipe MD LAB - CHEMISTRY JOSE ENRIQUE Pena Organization Address City/State/ZIP Co de Phone Number [facility] [address] [place] [address], [facility] [phone] * (ABNORMAL) BLOOD GASES ART + COOX PANEL (03/01/2021 12:11 AM [facility]) pH Arterial 7.46(H) 7.35 - 7.45 pH 03/01/2021 12:22 AM [facility] pO2 Arterial 144(H) 80 - 100 mmHg 03/01/2021 12:22 AM [facility] pCO2 Arterial 33(L) 35 - 45 mmHg 12:22 AM [facility] HCO3 Arterial 24 20 - 30 mmol/l 03/01/2021 12:22 AM [facility] BE Arterial 0.1 -2.0 - 2.0 mmol/L 03/01/2021 12:22 AM [facility] Oxyhemoglobin Arterial 97.3 % 03/01/2021 12:22 AM [facility] Dexoyhemoglobin (HHB) % 0.2 % 03/01/2021 12:22 AM [facility] Methemoglobin <0.8 0.0 - 2.0 % 03/01/2021 12:22 AM [facility] Carboxyhemoglobin 1.8 0.0 - 2.0 % 2020 12:22 AM [facility] O2 Content Arterial 15.9 Interpret within clinical context mg/dL 03/01/2021 12:22 AM [facility] Hemoglobin by COOX 11.4(L) 12.0 - 17.6 g/dL 03/01/2021 12:22 AM [facility] O2 Saturation Arterial 100 90 - 100 % 03/01/2021 12:22 AM [facility] FI O2 Arterial 40.0 % 03/01/2021 12:22 AM [facility] Blood, arterial ARTERIAL BLOOD SPECIMEN / Unknown Arterial Puncture / Unknown 03/01/2021 12:11 AM T 03/01/2021 12:16 AM [facility] - 03/01/2021 12:22 AM [facility] Carboxyhemoglobin Normal Concentration: Non-smokers: 0-2%; Smokers: 0-9%; Toxic: >20% Fredy Felipe MD LAB - BLOOD GASES OR DERABLES Performing Organization Address City/[facility]/ZIP Co de Phone Number [place] [phone] [place] [address], [facility] [phone] * PT-INR [facility] (03/01/2021 12:11 AM CDT) PT 14.0 12.1 - 14.8 Seconds 03/01/2021 12:35 AM CDT [facility] INR 1.1 See Comment 03/01/2021 12:35 AM CDT [facility] Comment:The suggested therap eutic range for standard coumadin (warfarin) therapy is an INR of 2.0-3.0. For high-risk patients (Mechanical Mitral Valve Prosthesis, etc.), the suggested prophylactic therapeutic range is an INR of 2.5-3.5. Blood BLOOD SPECIMEN / Unknown Venipuncture / Unknown 03/01/2021 12:11 AM CDT 03/01/2021 12:16 AM CDT Fredy Felipe MD LAB - COAGULATION OR DERABLES Performing Organization Address [facility]/ZIP Co de Phone Number [address] [address], [facility] [phone] * PHOSPHORUS BLOOD (03/01/2021 12:11 AM CDT) Phosphorus 3.9 2.8 - 5.1 mg/dL 03/01/2021 12:42 AM CDT [facility] Blood BLOOD SPECIMEN / Unknown Venipuncture / Unknown 03/01/2021 12:11 AM CDT 03/01/2021 12:18 AM CDT Fredy Felipe MD LAB - CHEMISTRY ORDE RABLES [facility] [address] [place] [phone], [facility] [phone] * MAGNESIUM BLOOD (03/01/2021 12:11 AM CDT) Magnesium 2.1 1.6 - 2.6 mg/dL 03/01/2021 12:42 AM CDT [facility] Blood BLOOD SPECIMEN / Unknown Venipuncture / Unknown 03/01/2021 12:11 AM CDT 03/01/2021 12:18 AM CDT Fredy Felipe MD LAB - CHEMISTRY JOSE ENRIQUE VELA Performing Organization Address [facility]/ZIP Co de Phone Number [address] [address], [facility] [phone] * CALCIUM IONIZED WHOLE BLOOD (03/01/2021 12:11 AM CDT) Calcium Ionized 1.21 mmol/L 03/01/2021 12:22 AM CDT [facility] pH 7.45 7.35 - 7.45 pH 03/01/2021 12:22 AM CDT [facility] Ionized Calcium pH Adjusted 1.24 1.19 - 1.34 mmol/L 03/01/2021 12:22 AM CDT [facility] Blood BLOOD SPECIMEN / Unknown Venipuncture / Unknown 03/01/2021 12:11 AM CDT 03/01/2021 12:16 AM CDT Fredy Felipe MD LAB - CHEMISTRY JOSE ENRIQUE VELA Performing Organization Address [facility] Co de Phone Number [address] [address], [facility] [phone] * XR CHEST 1VW PORTABLE (02/28/2021 5:13 AM CDT) Anatomical Region Laterality Modality Chest Radiographic Sera ging 02/28/2021 1:26 PM CDT Impressions 02/28/2021 4:37 PM CDT IMPRESSION: No significant change, diffuse multifocal patchy opacities, may represent multifocal pneumonia or pulmonary contusions given the history of trauma. Report dictated by Simone Alexander MD, PhD (residential leasing manager). I, Dr. Jamaal CASTILLO M.D. have personally reviewed and interpreted this examination/study. This report was electronically signed by Jamaal CASTILLO M.D. ??on 02/28/2021 4:37 PM . Narrative 02/28/2021 4:37 PM CDT EXAMINATION: XR CHEST 1VW PORTABLE, 02/28/2021 5:13 AM HISTORY: T14.90XA: Trauma. Requests evaluation for monitoring ET tube. COMPARISON: 02/28/2021, 0030 hours: AP CXR portable one view. FINDINGS: *Endotracheal tube terminates in the midthoracic trachea, 3.7 cm below the maya. *Enteric tube traverses the stomach, terminus and side-port visualized. *Right CVC terminates in the SVC. Diffuse multifocal patchy opacities are again noted unchanged. The right hemidiaphragm remains elevated with right lower lobe atelectasis. Small right pleural effusion cannot be excluded. There is no left pleural effusion or pneumothorax. The cardiomediastinal silhouette remains partially obscured, but stable. Procedure Note Jolanta Castillo MD - 02/28/2021 EXAMINATION: XR CHEST 1VW PORTABLE, 02/28/2021 5:13 AM HISTORY: T14.90XA: Trauma. Requests evaluation for monitoring ET tube. COMPARISON: 02/28/2021, 0030 hours: AP CXR portable one view. FINDINGS: *Endotracheal tube terminates in the midthoracic trachea, 3.7 cm belowthe maya. *Enteric tube traverses the stomach, terminus and side-port visualized. *Right CVC terminates in the SVC. Diffuse multifocal patchy opacities are again noted unchanged. The right hemidiaphragm remains elevated with right lower lobe atelectasis. Small right pleural effusion cannot be excluded. There is no left pleural effusion or pneumothorax. The cardiomediastinal silhouette remains partially obscured, but stable. IMPRESSION: No significant change, diffuse multifocal patchy opacities, mayrepresent multifocal pneumonia or pulmonary contusions given the history oftrauma. Report dictated by Simone Alexander MD, PhD (residential leasing manager). Dr. Jamaal Yao M.D. have personally reviewed and interpretedthis examination/study. This report was electronically signed by Jamaal CASTILLO M.D. on 02/28/2021 4:37 PM . Fredy Felipe MD DIAGNOSTIC IMAGING O RDERABLES * XR CHEST 1VW PORTABLE (02/28/2021 1:00 AM CDT) Anatomical Region Laterality Modality Chest Radiographic Sera ging 02/28/2021 1:13 PM CDT Impressions 02/28/2021 4:24 PM CDT IMPRESSION: 1.Low lung volumes. Diffuse multifocal patchy opacities, increased compared prior exam, may represent multifocal pneumonia and/or pulmonary edema. 2.Elevated right hemidiaphragm with right lower lobe atelectasis. Small right pleural effusion cannot excluded. Report dictated by Simone Alexander MD, PhD (residential leasing manager). Dr. Jamaal Yao M.D. have personally reviewed and interpreted this examination/study. This report was electronically signed by Jamaal CASTILLO M.D. ??on 02/28/2021 4:24 PM . Narrative 02/28/2021 4:24 PM CDT EXAMINATION: XR CHEST 1VW PORTABLE, 02/28/2021 1:00 AM HISTORY: T14.90XA: Trauma. Request evaluation following removal thoracostomy tube. COMPARISON: 02/27/2021, AP CXR portable one view, semierect. FINDINGS: *Endotracheal tube terminates in mid thoracic trachea, 4.2 cm above the maya. *Enteric tube traverses stomach, terminus and side-port not visualized. *Right subclavian CVC terminates in the SVC. The lungs are hypoexpanded with bronchovascular crowding. Diffuse multifocal patchy opacifications are seen, increased compared to prior exam. The right hemidiaphragm is elevated with right lower lobe atelectasis. Small right pleural effusion cannot be excluded. There is no pneumothorax. The cardiomediastinal silhouette is stable. Procedure Note Jolanta Castillo MD - 02/28/2021 EXAMINATION: XR CHEST 1VW PORTABLE, 02/28/2021 1:00 AM HISTORY: T14.90XA: Trauma. Request evaluation following removal thoracostomy tube. COMPARISON: 02/27/2021, AP CXR portable one view, semierect. FINDINGS: *Endotracheal tube terminates in mid thoracic trachea, 4.2 cm above the maya. *Enteric tube traverses stomach, terminus and side-port not visualized. *Right subclavian CVC terminates in the SVC. The lungs are hypoexpanded with bronchovascular crowding. Diffuse multifocal patchy opacifications are seen, increased compared to prior exam. The right hemidiaphragm is elevated with right lower lobe atelectasis. Small right pleural effusion cannot be excluded. There isno pneumothorax. The cardiomediastinal silhouette is stable. IMPRESSION: 1.Low lung volumes. Diffuse multifocal patchy opacities, increased compared prior exam, may represent multifocal pneumonia and/or pulmonary edema. 2.Elevated right hemidiaphragm with right lower lobe atelectasis. Small right pleural effusion cannot excluded. Report dictated by Simone Alexander MD, PhD (residential leasing manager). I, Dr. Jamaal CASTILLO M.D. have personally reviewed and interpretedthis examination/study. This report was electronically signed by Jamaal CASTILLO M.D. on 02/28/2021 4:24 PM . Dino Hudson PA-C DIAGNOSTIC IMAGIN G ORDERABLES * (ABNORMAL) DIFFERENTIAL MANUAL (02/28/2021 12:56 AM CDT) WBC (corrected for NRBC) 21.9 10? 3 /uL 02/28/2021 3:04 AM [facility] Total Cell Count 100 02/28/2021 3:04 AM [facility] Neutrophils Absolute Manual 17.96(H) 1.60 - 7.00 10? 3 /uL 02/28/2021 3:04 AM [facility] Comment:(BANDS+SEGS) x WBC = NEUT # (ANC) Lymphocyte Absolute Manual 1.10 1.10 - 3.90 10? 3 /uL 02/28/2021 3:04 AM [facility] Monocytes Absolute Manual 2.41(H) 0.26 - 1.07 10? 3 /uL 02/28/2021 3:04 AM [facility] Eosinophils Absolute Manual 0.44 0.00 - 0.47 10? 3 /uL 02/28/2021 3:04 AM CDT [facility] Neutrophil % Manual 82(H) 35 - 70 % 02/28/2021 3:04 AM T [facility] Lymphocyte % Manual 5(L) 20 - 43 % 02/28/2021 3:04 AM CDT [facility] Monocytes % Manual 11 5 - 13 % 02/28/2021 3:04 AM T [facility] Eosinophils % Manual 2 0 - 6 % 02/28/2021 3:04 AM T [facility] Platelet Estimate Increased( A) Adequate 02/28/2021 3:04 AM CDT [facility] RBC Morphology Normal 02/28/2021 3:04 AM T [facility] Blood BLOOD SPECIMEN / Unknown Venipuncture / Unknown 02/28/2021 12:56 AM CDT 02/28/2021 1:22 AM CDT Ferdy Felipe MD LAB - HEMATOLOGY ORD ERABLES Performing Organization Address City/[facility]/ZIP Co de Phone Number [facility] [address] [place] [phone], [place] [phone] * (ABNORMAL) TRIGLYCERIDES BLOOD (02/28/2021 12:56 AM CDT) Triglycerides 389(H) <150 mg/dL 02/28/2021 1:51 AM T [facility] Comment: ATP III Classification of Triglycerides: ?<150 mg/dL: ??Normal ? 150 - 199 mg/dL: ??Borderline High ? 200 - 400 mg/dL: ??High ?>500 mg/dL: ??Very High Blood BLOOD SPECIMEN / Unknown Venipuncture / Unknown 02/28/2021 12:56 AM CDT 02/28/2021 1:22 AM CDT Kelvin Stewart MD LAB - CHEMISTRY ORD ERABLES [facility] [address] [place] [phone] [phone] * (ABNORMAL) CBC W AUTO DIFFERENTIAL (02/28/2021 12:56 AM T) WBC 21.9(H) 3.5 - 10.5 10? 3 /uL 02/28/2021 1:31 AM [facility] RBC 3.81(L) 4.30 - 5.70 10? 6 /uL 02/28/2021 1:31 AM [facility] Hemoglobin 10.4(L) 12.0 - 17.6 g/dL 02/28/2021 1:31 AM [facility] Hematocrit 32.7(L) 35.2 - 51.7 % 02/28/2021 1:31 AM [facility] MCV 85.8 80.7 - 98.3 fL 02/28/2021 1:31 AM [facility] MCH 27.3 26.7 - 34.0 pg 02/28/2021 1:31 AM [facility] MCHC 31.8 30.8 - 35.9 g/dL 02/28/2021 1:31 AM [facility] Platelet Count 493(H) 150 - 400 10? 3 /uL 02/28/2021 1:31 AM [facility] RDW-SD 43.9 36.0 - 50.0 fL 02/28/2021 1:31 AM [facility] RDW-CV 14.0 11.2 - 14.8 % 02/28/2021 1:31 AM [facility] MPV 9.1(L) 9.4 - 12.9 fL 02/28/2021 1:31 AM [facility] nRBC Absolute 0.02(H) 0 10? 3 /uL 02/28/2021 1:31 AM [facility] nRBC Auto 0.1(H) 0 /100 WBC 02/28/2021 1:31 AM [facility] Blood BLOOD SPECIMEN / Unknown Venipuncture / Unknown 02/28/2021 12:56 AM CDT 02/28/2021 1:22 AM CDT Fredy Felipe MD LAB - HEMATOLOGY ORD TERESA [facility] [address] [place] [address], [facility] [phone] * (ABNORMAL) BASIC METABOLIC PANEL (CALCIUM TOTAL) (02/28/2021 12:56 AM CDT) BUN 24 7 - 26 mg/dL 02/28/2021 1:51 AM [facility] Creatinine 1.30(H) 0.71 - 1.16 mg/dL 02/28/2021 1:51 AM [facility] Sodium 138 136 - 145 mmol/L 02/28/2021 1:51 AM [facility] Potassium 4.2 3.5 - 4.5 mmol/L 02/28/2021 1:51 AM [facility] Chloride 107 98 - 107 mmol/L 02/28/2021 1:51 AM [facility] CO2 19(L) 22 - 29 mmol/L 02/28/2021 1:51 AM [facility] Glucose 93 70 - 115 mg/dL 02/28/2021 1:51 AM [facility] Calcium 9.2 8.4 - 10.2 mg/dL 02/28/2021 1:51 AM [facility] Anion Gap 16 8 - 18 02/28/2021 1:51 AM [facility] BUN/Creatinine Ratio 18 7 - 23 02/28/2021 1:51 AM [facility] Osmolality Calculated 290 270 - 300 mOsm/kg 02/28/2021 1:51 AM [facility] eGFR by CKD-EPI 71(L) >=90 mL/min/1.7 3 m2 02/28/2021 1:51 AM [facility] Blood BLOOD SPECIMEN / Unknown Venipuncture / Unknown 02/28/2021 12:56 AM CDT 02/28/2021 1:22 AM CDT Fredy Felipe MD LAB - CHEMISTRY JOSE ENRIQUE VELA [facility] [address] [place] [address], [facility] [phone] * (ABNORMAL) BLOOD GASES ART + COOX PANEL (02/28/2021 12:56 AM T) pH Arterial 7.50(H) 7.35 - 7.45 pH 02/28/2021 1:20 AM [facility] pO2 Arterial 142(H) 80 - 100 mmHg 02/28/2021 1:20 AM [facility] pCO2 Arterial 27(L) 35 - 45 mmHg 1:20 AM [facility] HCO3 Arterial 21 20 - 30 mmol/l 02/28/2021 1:20 AM [facility] BE Arterial -1.1 -2.0 - 2.0 mmol/L 02/28/2021 1:20 AM [facility] Oxyhemoglobin Arterial 96.0 % 02/28/2021 1:20 AM [facility] Dexoyhemoglobin (HHB) % 0.5 % 02/28/2021 1:20 AM [facility] Methemoglobin 1.3 0.0 - 2.0 % 02/28/2021 1:20 AM [facility] Carboxyhemoglobin 2.3(H) 0.0 - 2.0 % 2020 1:20 AM [facility] O2 Content Arterial 15.3 Interpret within clinical context mg/dL 02/28/2021 1:20 AM [facility] Hemoglobin by COOX 11.1(L) 12.0 - 17.6 g/dL 02/28/2021 1:20 AM [facility] O2 Saturation Arterial 100 90 - 100 % 02/28/2021 1:20 AM [facility] FI O2 Arterial 40.0 % 02/28/2021 1:20 AM [facility] Blood, arterial ARTERIAL BLOOD SPECIMEN / Unknown Arterial Puncture / Unknown 02/28/2021 12:56 AM CDT 02/28/2021 1:18 AM [facility] Narrative [facility] - 02/28/2021 1:20 AM CDT Carboxyhemoglobin Normal Concentration: Non-smokers: 0-2%; Smokers: 0-9%; Toxic: >20% Fredy Felipe MD LAB - BLOOD GASES OR DERABLES Performing Organization Address City/[facility]/ZIP Co de Phone Number [facility] [address] [place] [phone], [place] [phone] * PT-INR [facility] (02/28/2021 12:56 AM CDT) PT 14.3 12.1 - 14.8 Seconds 02/28/2021 1:42 AM CDT [facility] INR 1.1 See Comment 02/28/2021 1:42 AM CDT [facility] Comment:The suggested therap eutic range for standard coumadin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 Prosthesis, etc.), the suggested prophylactic therapeutic range is an INR of 2.5-3.5. Blood BLOOD SPECIMEN / Unknown Venipuncture / Unknown 02/25/2021 10:54 PM CDT 02/25/2021 10:57 PM CDT Fredy Felipe MD LAB - COAGULATION OR DERABLES Performing Organization Address [facility] Co de Phone Number [address] [address], [place] [phone] * PHOSPHORUS BLOOD (02/25/2021 10:54 PM CDT) Phosphorus 4.3 2.8 - 5.1 mg/dL 02/25/2021 11:24 PM CDT [facility] Blood BLOOD SPECIMEN / Unknown Venipuncture / Unknown 02/25/2021 10:54 PM CDT 02/25/2021 10:57 PM CDT Fredy Felipe MD LAB - CHEMISTRY JOSE ENRIQUE VELA Performing Organization Address City/[facility]/ZIP Co de Phone Number [address] [address], [facility] [phone] * MAGNESIUM BLOOD (02/25/2021 10:54 PM CDT) Magnesium 2.3 1.6 - 2.6 mg/dL 02/25/2021 11:24 PM CDT [facility] Blood BLOOD SPECIMEN / Unknown Venipuncture / Unknown 02/25/2021 10:54 PM CDT 02/25/2021 10:57 PM CDT Fredy Felipe MD LAB - CHEMISTRY JOSE ENRIQUE VELA Performing Organization Address [facility] de Phone Number [address] [address], [facility] [phone] * (ABNORMAL) CALCIUM IONIZED WHOLE BLOOD (02/25/2021 10:54 PM CDT) Calcium Ionized 1.08 mmol/L 02/25/2021 10:59 PM CDT [facility] pH 7.49(H) 7.35 - 7.45 pH 02/25/2021 10:59 PM CDT [facility] Ionized Calcium pH Adjusted 1.12(L) 1.19 - 1.34 mmol/L 02/25/2021 10:59 PM CDT [facility] Blood BLOOD SPECIMEN / Unknown Venipuncture / Unknown 02/25/2021 10:54 PM CDT 02/25/2021 10:57 PM CDT Fredy Felipe MD LAB - CHEMISTRY JOSE ENRIQUE VELA [facility] Organization Address City/State/ZIP Co de Phone Number [facility] [address] [place] [address], [facility] [phone] * (ABNORMAL) CULTURE RESPIRATORY+GRAM STAIN (STL) (02/25/2021 3:39 PM CDT) Culture Moderate Klebsiella (formerly Enterobacter) aerogenes(A) [place] 02/27/2021 11:50 AM CDT [facility] Culture Moderate Haemophilus influenzae(A) 02/27/2021 11:50 AM CDT [facility]CRO[facility]OLOG[facility] Comment:Beta-lactamase negat elvira Culture Rare normal oropharyngeal zi [place] 02/27/2021 11:50 AM CDT [facility] Gram Stain Light Gram-negative bacilli 02/27/2021 11:50 AM CDT [facility] Gram Stain Rare Polymorphonuclear cells 02/27/2021 11:50 AM CDT [facility] Microbiology SPECIMEN FROM ENDOTRACHEAL TUBE / Unknown Collection / Unknown 02/25/2021 3:39 PM CDT 02/25/2021 3:59 PM CDT Narrative [facility] - 02/27/2021 11:50 AM CDT Enterobacter, [...] Trimethoprim-sulfamethoxazo le CALISTA <=20 ug/mL: Susceptible Delilah JEFFERY NP LAB - MICROBIOLOGY ORDERABLES [facility] [address] [place] [address], [facility] [phone] * (ABNORMAL) URINALYSIS REFLEX TO MICROSCOPIC NO CULTURE (02/25/2021 5:39 AM CDT) Color UA Janis(A) Straw, Yellow 02/25/2021 5:57 AM [facility] Clarity UA Cloudy(A) Clear 02/25/2021 5:57 AM [facility] Specific [place] UA 1.021 1.005 - 1.030 02/25/2021 5:57 AM [facility] pH UA 5.0 5.0 - 8.0 pH 02/25/2021 5:57 AM [facility] Protein UA 2+(A) Negative 02/25/2021 5:57 AM [facility] Glucose UA Negative Negative 02/25/2021 5:57 AM [facility] Ketone UA Negative Negative 02/25/2021 5:57 AM [facility] Bilirubin UA Negative Negative 02/25/2021 5:57 AM [facility] Blood UA 3+(A) Negative 02/25/2021 5:57 AM [facility] Nitrite UA Negative Negative 02/25/2021 5:57 AM [facility] Leukocyte Esterase 2+(A) Negative 02/25/2021 5:57 AM [facility] Urobilinogen UA Negative Negative mg/dL 02/25/2021 5:57 AM [facility] RBC UA >100(A) None Seen, 0-2, 3-5 /HPF 02/25/2021 5:57 AM [facility] WBC UA 51-100(A) None Seen, 0-5 /HPF 02/25/2021 5:57 AM [facility] WBC Clumps Occasional( A) None /HPF 02/25/2021 5:57 AM CDT [facility] Bacteria UA 3+(A) None /HPF 02/25/2021 5:57 AM CDT [facility] Squamous Epithelial Cells UA 0-2 None Seen, 0-2, 3-5 /HPF 02/25/2021 5:57 AM CDT [facility] Mucus UA 1+ /LPF 02/25/2021 5:57 AM CDT [facility] Urine URINE SPECIMEN OBTAINED VIA INDWELLING URINARY CATHETER / Unknown Collection / Unknown 02/25/2021 5:39 AM CDT 02/25/2021 5:49 AM CDT Narrative [facility] - 02/25/2021 5:57 AM CDT Delilah Stubbs PLATE INSPECTOR-C METAL WASHING MACHINE OPERATOR LAB - URINALYSIS ORDERABLES [facility] [address] [place] [phone], [facility] [phone] * XR CHEST 1VW PORTABLE (02/25/2021 5:29 AM CDT) Anatomical Region Laterality Modality Chest Radiographic Sera ging 02/25/2021 10:5 5 AM CDT Impressions 02/25/2021 2:15 PM CDT FINDINGS/IMPRESSION: Lines and tubes: *Endotracheal tube terminates in the midthoracic trachea. *Enteric tube is followed below the diaphragm with the terminus outside field of view. *Right apically oriented thoracostomy tube terminates in the mid lung, sidehole is very close to the chest wall. *Left subclavian approach central venous catheter terminates in the left brachiocephalic vein. Low lung volumes with associated bronchovascular crowding. There is no focal consolidation or pneumothorax. The cardiomediastinal silhouette is stable. Dictated by Rico Sawant DO (residential leasing manager). I, Dr. TAINA PAVON have personally reviewed and interpreted this examination/study. This report was electronically signed by TAINA PAVON ??on 02/25/2021 2:15 PM . Narrative 02/25/2021 2:15 PM CDT EXAMINATION: XR CHEST 1VW PORTABLE HISTORY: T14.90XA: Trauma COMPARISON: Comparison is made with chest radiograph dated 02/24/2021. Procedure Note Taina Pavon MD - 02/25/2021 EXAMINATION: XR CHEST 1VW PORTABLE HISTORY: T14.90XA: Trauma COMPARISON: Comparison is made with chest radiograph dated 02/24/2021. FINDINGS/IMPRESSION: Lines and tubes: *Endotracheal tube terminates in the midthoracic trachea. *Enteric tube is followed below the diaphragm with the terminus outside field of view. *Right apically oriented thoracostomy tube terminates in the mid lung, sidehole is very close to the chest wall. *Left subclavian approach central venous catheter terminates in the left brachiocephalic vein. Low lung volumes with associated bronchovascular crowding. There is no focal consolidation or pneumothorax. The cardiomediastinal silhouette is stable. Dictated by Rico Sawant DO (residential leasing manager). I, Dr. TAINA PAVON have personally reviewed and interpreted this examination/study. This report was electronically signed by TAINA PAVON on 02/25/2021 2:15 PM . Fredy Felipe MD DIAGNOSTIC IMAGING O RDERABLES * (ABNORMAL) BCID PANEL (02/25/2021 5:25 AM CDT) Pathologist [facility] Staphylococcus Detected(A) Not Detected, Indetermin ate, Invalid 02/26/2021 11:56 AM CDT [facility] Comment:Coagulase-negative s taphylococci (CoNS) detected by nucleic acid testing. CoNS are the most common skin contaminants grown in blood cultures and positive results must be interpreted in the appropriate clinical context. Susceptibilty testing performed on clinically significant isolates. Staphylococcus aureus Not Detected Not Detected, Indetermin ate, Invalid 02/26/2021 11:56 AM CDT [facility] Enterococcus Not Detected Not Detected, Indetermin ate, Invalid 02/26/2021 11:56 AM CDT [facility] Streptococcus Not Detected Not Detected, Indetermin ate, Invalid 02/26/2021 11:56 AM CDT [facility] Streptococcus pyogenes (Group A) Not Detected Not Detected, Indetermin ate, Invalid 02/26/2021 11:56 AM CDT [facility] Streptococcus agalactiae (Group B) Not Detected Not Detected, Indetermin ate, Invalid 02/26/2021 11:56 AM CDT [facility] Streptococcus pneumoniae Not Detected Not Detected, Invalid 02/26/2021 11:56 AM CDT [facility] Blood PERIPHERAL BLOOD / Unknown Venipuncture / Unknown 02/25/2021 5:25 AM CDT 02/25/2021 5:30 AM CDT Delilah JEFFERY METAL WASHING MACHINE OPERATOR LAB - MICROBIOLOGY ORDERABLES Performing Organization Address City/[facility]/ZIP Co de Phone Number [facility] [address] [place] [address], [facility] [phone] * (ABNORMAL) CULTURE BLOOD (02/25/2021 5:25 AM CDT) Culture Growth of Staphylococcus lugdunensis(AA) CALISTA 03/02/2021 8:09 AM CDT [facility] Comment:Possible contaminant unless multiple cultures are positive for the same isolate. Blood PERIPHERAL BLOOD / Unknown Venipuncture / Unknown 02/25/2021 5:25 AM CDT 02/25/2021 5:30 AM CDT Narrative [facility] - 03/02/2021 8:09 AM CDT Positive at 1 day and 1 hour Delilah JEFFERY NP LAB - MICROBIOLOGY ORDERABLES Performing Organization Address City/[facility]/ZIP Co de Phone Number [facility] [address] [place] [address], [facility] [phone] * CULTURE BLOOD (02/25/2021 5:16 AM CDT) Culture No growth day 5 CALISTA 03/02/2021 8:00 AM CDT [facility] Blood PERIPHERAL BLOOD / Unknown Venipuncture / Unknown 02/25/2021 5:16 AM CDT 02/25/2021 5:30 AM CDT Delilah JEFFERY METAL WASHING MACHINE OPERATOR LAB - MICROBIOLOGY ORDERABLES [facility] [address] [place] [address], [facility] [phone] * (ABNORMAL) CBC W AUTO DIFFERENTIAL (02/25/2021 2:36 AM CDT) WBC 27.1(H) 3.5 - 10.5 10? 3 /uL 02/25/2021 3:03 AM [facility] Comment:All CBC parameters h ave been checked. RBC 4.89 4.30 - 5.70 10? 6 /uL 02/25/2021 3:03 AM [facility] Hemoglobin 13.7 12.0 - 17.6 g/dL 02/25/2021 3:03 AM [facility] Hematocrit 42.9 35.2 - 51.7 % 02/25/2021 3:03 AM [facility] MCV 87.7 80.7 - 98.3 fL 02/25/2021 3:03 AM [facility] MCH 28.0 26.7 - 34.0 pg 02/25/2021 3:03 AM [facility] MCHC 31.9 30.8 - 35.9 g/dL 02/25/2021 3:03 AM [facility] Platelet Count 487(H) 150 - 400 10? 3 /uL 02/25/2021 3:03 AM [facility] RDW-SD 44.1 36.0 - 50.0 fL 02/25/2021 3:03 AM [facility] RDW-CV 13.7 11.2 - 14.8 % 02/25/2021 3:03 AM [facility] MPV 9.0(L) 9.4 - 12.9 fL 02/25/2021 3:03 AM [facility] nRBC Absolute 0.00 0 10? 3 /uL 02/25/2021 3:03 AM [facility] nRBC Auto 0.0 0 /100 WBC 02/25/2021 3:03 AM [facility] Neutrophils % 88.7(H) 35.0 - 70.0 % 02/25/2021 3:03 AM [facility] Lymphocytes % 4.1(L) 20.0 - 43.0 % 02/25/2021 3:03 AM [facility] Monocytes % 2.8(L) 5.0 - 13.0 % 02/25/2021 3:03 AM [facility] Eosinophils % 2.2 0.0 - 6.0 % 02/25/2021 3:03 AM [facility] Basophil % 0.4 0.0 - 2.0 % 02/25/2021 3:03 AM [facility] Neutrophils Absolute 24.0(H) 1.6 - 7.0 10? 3 /uL 02/25/2021 3:03 AM [facility] Lymphocyte Absolute 1.1 1.1 - 3.9 10? 3 /uL 02/25/2021 3:03 AM [facility] Monocytes Absolute 0.77 0.26 - 1.07 10? 3 /uL 02/25/2021 3:03 AM [facility] Eosinophils Absolute 0.59(H) 0.00 - 0.47 10? 3 /uL 02/25/2021 3:03 AM [facility] Basophils Absolute 0.10(H) 0.00 - 0.08 10? 3 /uL 02/25/2021 3:03 AM [facility] Immature Granulocytes % 1.8(H) 0.0 - 1.0 % 02/25/2021 3:03 AM [facility] Immature Granulocytes Absolute 0.50 02/25/2021 3:03 AM [facility] Blood BLOOD SPECIMEN / Unknown Venipuncture / Unknown 02/25/2021 2:36 AM CDT 02/25/2021 2:46 AM T Fredy Felipe MD LAB - HEMATOLOGY ORD ERABLES [facility] [address] [place] [address], [facility] [phone] * (ABNORMAL) BASIC METABOLIC PANEL (CALCIUM TOTAL) (02/25/2021 2:36 AM CDT) BUN 7 7 - 26 mg/dL 02/25/2021 3:11 AM [facility] Creatinine 1.02 0.71 - 1.16 mg/dL 02/25/2021 3:11 AM [facility] Sodium 137 136 - 145 mmol/L 02/25/2021 3:11 AM [facility] Potassium 4.8(H) 3.5 - 4.5 mmol/L 02/25/2021 3:11 AM [facility] Chloride 103 98 - 107 mmol/L 02/25/2021 3:11 AM [facility] CO2 21(L) 22 - 29 mmol/L 02/25/2021 3:11 AM [facility] Glucose 142(H) 70 - 115 mg/dL 02/25/2021 3:11 AM [facility] Calcium 8.8 8.4 - 10.2 mg/dL 02/25/2021 3:11 AM [facility] Anion Gap 18 8 - 18 02/25/2021 3:11 AM [facility] BUN/Creatinine Ratio 7 7 - 23 02/25/2021 3:11 AM [facility] Osmolality Calculated 284 270 - 300 mOsm/kg 02/25/2021 3:11 AM [facility] eGFR by CKD-EPI >90 >=90 mL/min/1.7 3 m2 02/25/2021 3:11 AM [facility] Blood BLOOD SPECIMEN / Unknown Venipuncture / Unknown 02/25/2021 2:36 AM CDT 02/25/2021 2:46 AM CDT Fredy Felipe MD LAB - CHEMISTRY JOSE ENRIQUE VELA [facility] Organization Address City/State/ZIP Co de Phone Number [facility] [address] [place] [phone], [facility] [phone] * (ABNORMAL) BLOOD GASES ART + COOX PANEL (02/25/2021 2:36 AM CDT) Pathologist [facility] pH Arterial 7.40 7.35 - 7.45 pH 02/25/2021 2:49 AM [facility] pO2 Arterial 119(H) 80 - 100 mmHg 02/25/2021 2:49 AM [facility] pCO2 Arterial 39 35 - 45 mmHg 2:49 AM [facility] HCO3 Arterial 24 20 - 30 mmol/l 02/25/2021 2:49 AM [facility] BE Arterial -0.5 -2.0 - 2.0 mmol/L 02/25/2021 2:49 AM [facility] Oxyhemoglobin Arterial 96.4 % 02/25/2021 2:49 AM [facility] Dexoyhemoglobin (HHB) % 0.5 % 02/25/2021 2:49 AM [facility] Methemoglobin 1.4 0.0 - 2.0 % 02/25/2021 2:49 AM [facility] Carboxyhemoglobin 1.7 0.0 - 2.0 % 2020 2:49 AM [facility] O2 Content Arterial 19.3 Interpret within clinical context mg/dL 02/25/2021 2:49 AM [facility] Hemoglobin by COOX 14.1 12.0 - 17.6 g/dL 02/25/2021 2:49 AM [facility] O2 Saturation Arterial 100 90 - 100 % 02/25/2021 2:49 AM [facility] FI O2 Arterial 60.0 % 02/25/2021 2:49 AM [facility] Blood, arterial ARTERIAL BLOOD SPECIMEN / Unknown Arterial Puncture / Unknown 02/25/2021 2:36 AM CDT 02/25/2021 2:46 AM [facility] - 02/25/2021 2:49 AM [facility] Carboxyhemoglobin Normal Concentration: Non-smokers: 0-2%; Smokers: 0-9%; Toxic: >20% Fredy Felipe MD LAB - BLOOD GASES OR DERABLES [facility] [address] [place] [address] [phone] * PT-INR [facility] (02/25/2021 2:36 AM CDT) PT 13.5 12.1 - 14.8 Seconds 02/25/2021 3:01 AM CDT [facility] INR 1.1 See Comment 02/25/2021 3:01 AM CDT [facility] Comment:The suggested therap eutic range for standard coumadin (warfarin) therapy is an INR of 2.0-3.0. For high-risk patients (Mechanical Mitral Valve Prosthesis, etc.), the suggested prophylactic therapeutic range is an INR of 2.5-3.5. Blood BLOOD SPECIMEN / Unknown Venipuncture / Unknown 02/25/2021 2:36 AM CDT 02/25/2021 2:46 AM CDT Fredy Felipe MD LAB - COAGULATION OR DERABLES Performing Organization Address City/[facility]/ZIP Co de Phone Number [address] [address], [facility] [phone] * PHOSPHORUS BLOOD (02/25/2021 2:36 AM CDT) Phosphorus 4.8 2.8 - 5.1 mg/dL 02/25/2021 3:11 AM CDT [facility] Blood BLOOD SPECIMEN / Unknown Venipuncture / Unknown 02/25/2021 2:36 AM CDT 02/25/2021 2:46 AM CDT Fredy Felipe MD LAB - CHEMISTRY ORDE RABLES [address] [address], [facility] [phone] * MAGNESIUM BLOOD (02/25/2021 2:36 AM CDT) Magnesium 1.6 1.6 - 2.6 mg/dL 02/25/2021 3:11 AM CDT [facility] Blood BLOOD SPECIMEN / Unknown Venipuncture / Unknown 02/25/2021 2:36 AM CDT 02/25/2021 2:46 AM CDT Fredy Felipe MD LAB - CHEMISTRY JOSE ENRIQUE VELA Performing Organization Address [facility]/ZIP Co de Phone Number [address] [address], [facility] [phone] * (ABNORMAL) CALCIUM IONIZED WHOLE BLOOD (02/25/2021 2:36 AM CDT) Calcium Ionized 1.10 mmol/L 02/25/2021 2:49 AM CDT [facility] pH 7.42 7.35 - 7.45 pH 02/25/2021 2:49 AM CDT [facility] Ionized Calcium pH Adjusted 1.11(L) 1.19 - 1.34 mmol/L 02/25/2021 2:49 AM CDT [facility] Blood BLOOD SPECIMEN / Unknown Venipuncture / Unknown 02/25/2021 2:36 AM CDT 02/25/2021 2:46 AM CDT Fredy Felipe MD LAB - CHEMISTRY JOSE ENRIQUE VELA Performing Organization Address [facility] Co de Phone Number [address] [address], [facility] [phone] * XR ABDOMEN KUB PORTABLE (02/25/2021 1:32 AM CDT) Anatomical Region Laterality Modality Abdomen Radiographic Sera ging 02/25/2021 8:31 AM CDT Impressions 02/25/2021 1:30 PM CDT IMPRESSION: Examination limited by patient's obesity. Non-obstructive bowel gas pattern, no evidence of retained surgical material. Dictated by Rico Sawant D.O. (Rn Procedures) I, Dr. TAINA PAVON have personally reviewed and interpreted this examination/study. This report was electronically signed by TAINA PAVON ??on 02/25/2021 1:30 PM . Narrative 02/25/2021 [...] opacity of the right hilum. Procedure Note Taina Pavon MD - 02/25/2021 EXAMINATION: XR ABDOMEN KUB [...] surgical material. Dictated by Rico Sawant D.O. (Rn Procedures) I, Dr. TAINA PAVON have personally reviewed and interpreted this examination/study. This report was electronically signed by TAINA PAVON on 02/25/2021 1:30 PM . Nena Obrien DO DIAGNOSTIC IMAGING O RDERABLES * TYPE + SCREEN PANEL (02/24/2021 10:10 AM CDT) Antibody Screen NEG 11:29 AM CDT [facility] ABO Rh O POS 02/24/2021 11:29 AM CDT [facility] Blood Bank BLOOD SPECIMEN / Unknown Venipuncture / Unknown 02/24/2021 10:10 AM CDT 02/24/2021 10:35 AM CDT Mario Garcia MD LAB - BLOOD BANK ORD ERABLES [facility] [address] [place] [address], [facility] [phone] * XR CHEST 1VW PORTABLE (02/24/2021 5:51 AM CDT) Anatomical Region Laterality Modality Chest Radiographic Sera ging 02/24/2021 10:5 1 AM CDT Impressions 02/25/2021 1:44 PM CDT FINDINGS/IMPRESSION: *Endotracheal tube terminates in the thoracic trachea, 4.5 cm above the maya. *Right thoracostomy tube terminates in the right mid lung zone, unchanged in position. *Left subclavian CVC terminates in the left brachiocephalic vein. *Enteric tube traverses the stomach, tip and side ports not visualized. Moderate pulmonary vascular congestion. Bibasilar atelectasis. Left small pleural effusion. There is no pneumothorax. The cardiothymic silhouette is stable. Report dictated by Simone Alexander MD, PhD (residential leasing manager). I, Dr. TAINA PVAON have personally reviewed and interpreted this examination/study. This report was electronically signed by TAINA PAVON ??on 02/25/2021 1:44 PM . Narrative 02/25/2021 1:44 PM CDT EXAMINATION: XR CHEST 1VW PORTABLE, 02/24/2021 5:51 AM HISTORY: T14.90XA: Trauma COMPARISON: 02/23/2021 Procedure Note Taina Pavon MD - 02/25/2021 EXAMINATION: XR CHEST 1VW PORTABLE, 02/24/2021 5:51 AM HISTORY: T14.90XA: Trauma COMPARISON: 02/23/2021 FINDINGS/IMPRESSION: *Endotracheal tube terminates in the thoracic trachea, 4.5 cm above the maya. *Right thoracostomy tube terminates in the right mid lung zone,unchanged in position. *Left subclavian CVC terminates in the left brachiocephalic vein. *Enteric tube traverses the stomach, tip and side ports not visualized. Moderate pulmonary vascular congestion. Bibasilar atelectasis. Leftsmall pleural effusion. There is no pneumothorax. The cardiothymic silhouetteis stable. Report dictated by Simone Alexander MD, PhD (residential leasing manager). I, Dr. TAINA PAVON have personally reviewed and interpreted this examination/study. This report was electronically signed by TAINA PAVON on 02/25/2021 1:44 PM . Fredy Felipe MD DIAGNOSTIC IMAGING O RDERABLES * (ABNORMAL) CBC W AUTO DIFFERENTIAL (02/24/2021 12:28 AM CDT) WBC 13.9(H) 3.5 - 10.5 10? 3 /uL 02/24/2021 12:42 AM [facility] RBC 4.24(L) 4.30 - 5.70 10? 6 /uL 02/24/2021 12:42 AM [facility] Hemoglobin 11.8(L) 12.0 - 17.6 g/dL 02/24/2021 12:42 AM [facility] Hematocrit 36.4 35.2 - 51.7 % 02/24/2021 12:42 AM [facility] MCV 85.8 80.7 - 98.3 fL 02/24/2021 12:42 AM [facility] MCH 27.8 26.7 - 34.0 pg 02/24/2021 12:42 AM [facility] MCHC 32.4 30.8 - 35.9 g/dL 02/24/2021 12:42 AM [facility] Platelet Count 402(H) 150 - 400 10? 3 /uL 02/24/2021 12:42 AM [facility] RDW-SD 42.7 36.0 - 50.0 fL 02/24/2021 12:42 AM [facility] RDW-CV 13.8 11.2 - 14.8 % 02/24/2021 12:42 AM [facility] MPV 9.0(L) 9.4 - 12.9 fL 02/24/2021 12:42 AM [facility] nRBC Absolute 0.00 0 10? 3 /uL 02/24/2021 12:42 AM [facility] nRBC Auto 0.0 0 /100 WBC 02/24/2021 12:42 AM [facility] Neutrophils % 76.6(H) 35.0 - 70.0 % 02/24/2021 12:42 AM [facility] Lymphocytes % 10.0(L) 20.0 - 43.0 % 02/24/2021 12:42 AM [facility] Monocytes % 7.6 5.0 - 13.0 % 02/24/2021 12:42 AM [facility] Eosinophils % 3.8 0.0 - 6.0 % 02/24/2021 12:42 AM [facility] Basophil % 0.4 0.0 - 2.0 % 02/24/2021 12:42 AM [facility] Neutrophils Absolute 10.7(H) 1.6 - 7.0 10? 3 /uL 02/24/2021 12:42 AM [facility] Lymphocyte Absolute 1.4 1.1 - 3.9 10? 3 /uL 02/24/2021 12:42 AM [facility] Monocytes Absolute 1.06 0.26 - 1.07 10? 3 /uL 02/24/2021 12:42 AM [facility] Eosinophils Absolute 0.53(H) 0.00 - 0.47 10? 3 /uL 02/24/2021 12:42 AM [facility] Basophils Absolute 0.05 0.00 - 0.08 10? 3 /uL 02/24/2021 12:42 AM [facility] Immature Granulocytes % 1.6(H) 0.0 - 1.0 % 02/24/2021 12:42 AM [facility] Immature Granulocytes Absolute 0.22 02/24/2021 12:42 AM [facility] Blood BLOOD SPECIMEN / Unknown Venipuncture / Unknown 02/24/2021 12:28 AM CDT 02/24/2021 12:37 AM CDT Fredy Felipe MD LAB - HEMATOLOGY ORD ERABLES [facility] [address] [place] [address], [facility] [phone] * (ABNORMAL) BASIC METABOLIC PANEL (CALCIUM TOTAL) (02/24/2021 12:28 AM CDT) BUN 6(L) 7 - 26 mg/dL 02/24/2021 1:02 AM [facility] Creatinine 0.65(L) 0.71 - 1.16 mg/dL 02/24/2021 1:02 AM [facility] Sodium 138 136 - 145 mmol/L 02/24/2021 1:02 AM [facility] Potassium 4.2 3.5 - 4.5 mmol/L 02/24/2021 1:02 AM [facility] Chloride 103 98 - 107 mmol/L 02/24/2021 1:02 AM [facility] CO2 25 22 - 29 mmol/L 02/24/2021 1:02 AM [facility] Glucose 131(H) 70 - 115 mg/dL 02/24/2021 1:02 AM [facility] Calcium 8.4 8.4 - 10.2 mg/dL 02/24/2021 1:02 AM [facility] Anion Gap 14 8 - 18 02/24/2021 1:02 AM [facility] BUN/Creatinine Ratio 9 7 - 23 02/24/2021 1:02 AM [facility] Osmolality Calculated 285 270 - 300 mOsm/kg 02/24/2021 1:02 AM [facility] eGFR by CKD-EPI >90 >=90 mL/min/1.7 3 m2 02/24/2021 1:02 AM [facility] Blood BLOOD SPECIMEN / Unknown Venipuncture / Unknown 02/24/2021 12:28 AM CDT 02/24/2021 12:37 AM T Fredy Felipe MD LAB - CHEMISTRY JOSE ENRIQUE Pena Organization Address City/State/ZIP Co de Phone Number [facility] [address] [place] [address], [facility] [phone] * (ABNORMAL) BLOOD GASES ART + COOX PANEL (02/24/2021 12:28 AM CDT) pH Arterial 7.44 7.35 - 7.45 pH 02/24/2021 12:37 AM [facility] pO2 Arterial 110(H) 80 - 100 mmHg 02/24/2021 12:37 AM [facility] pCO2 Arterial 41 35 - 45 mmHg 12:37 AM [facility] HCO3 Arterial 28 20 - 30 mmol/l 02/24/2021 12:37 AM [facility] BE Arterial 3.3(H) -2.0 - 2.0 mmol/L 02/24/2021 12:37 AM [facility] Oxyhemoglobin Arterial 96.5 % 02/24/2021 12:37 AM [facility] Dexoyhemoglobin (HHB) % 1.0 % 02/24/2021 12:37 AM [facility] Methemoglobin <0.8 0.0 - 2.0 % 02/24/2021 12:37 AM [facility] Carboxyhemoglobin 1.8 0.0 - 2.0 % 2020 12:37 AM [facility] O2 Content Arterial 16.6 Interpret within clinical context mg/dL 02/24/2021 12:37 AM [facility] Hemoglobin by COOX 12.1 12.0 - 17.6 g/dL 02/24/2021 12:37 AM [facility] O2 Saturation Arterial 99 90 - 100 % 02/24/2021 12:37 AM [facility] FI O2 Arterial 45.0 % 02/24/2021 12:37 AM [facility] Blood, arterial ARTERIAL BLOOD SPECIMEN / Unknown Arterial Puncture / Unknown 02/24/2021 12:28 AM CDT 02/24/2021 12:34 AM CDT Narrative [facility] - 02/24/2021 12:37 AM CDT Carboxyhemoglobin Normal Concentration: Non-smokers: 0-2%; Smokers: 0-9%; Toxic: >20% Fredy Felipe MD LAB - BLOOD GASES OR DERABLES Performing Organization Address [facility] Co de Phone Number [address] [address], [facility] [phone] * PT-INR [facility] (02/24/2021 12:28 AM CDT) PT 14.2 12.1 - 14.8 Seconds 02/24/2021 12:45 AM CDT [facility] INR 1.1 See Comment 02/24/2021 12:45 AM CDT [facility] Comment:The suggested therap eutic range for standard coumadin (warfarin) therapy is an INR of 2.0-3.0. For high-risk patients (Mechanical Mitral Valve Prosthesis, etc.), the suggested prophylactic therapeutic range is an INR of 2.5-3.5. Blood BLOOD SPECIMEN / Unknown Venipuncture / Unknown 02/24/2021 12:28 AM CDT 02/24/2021 12:37 AM CDT Fredy Felipe MD LAB - COAGULATION OR DERABLES Performing Organization Address [facility] Co de Phone Number [address] [address], [facility] [phone] * PHOSPHORUS BLOOD (02/24/2021 12:28 AM CDT) Phosphorus 3.9 2.8 - 5.1 mg/dL 02/24/2021 1:02 AM CDT [facility] Blood BLOOD SPECIMEN / Unknown Venipuncture / Unknown 02/24/2021 12:28 AM CDT 02/24/2021 12:37 AM CDT Fredy Felipe MD LAB - CHEMISTRY JOSE ENRIQUE VELA Performing Organization Address City/[facility]/ZIP Co de Phone Number [address] [place] [address], [place] [phone] * MAGNESIUM BLOOD (02/24/2021 12:28 AM CDT) Magnesium 1.8 1.6 - 2.6 mg/dL 02/24/2021 1:02 AM CDT [facility] Blood BLOOD SPECIMEN / Unknown Venipuncture / Unknown 02/24/2021 12:28 AM CDT 02/24/2021 12:37 AM CDT Fredy Felipe MD LAB - CHEMISTRY JOSE ENRIQUE VELA [address] [address], [place] [phone] * (ABNORMAL) CALCIUM IONIZED WHOLE BLOOD (02/24/2021 12:28 AM CDT) Calcium Ionized 1.16 mmol/L 02/24/2021 12:40 AM CDT [facility] pH 7.45 7.35 - 7.45 pH 02/24/2021 12:40 AM CDT [facility] Ionized Calcium pH Adjusted 1.18(L) 1.19 - 1.34 mmol/L 02/24/2021 12:40 AM CDT [facility] Blood BLOOD SPECIMEN / Unknown Venipuncture / Unknown 02/24/2021 12:28 AM CDT 02/24/2021 12:34 AM CDT Fredy Felipe MD LAB - CHEMISTRY JOSE ENRIQUE VELA [address] [address], [place] [phone] * XR CHEST 1VW PORTABLE (02/23/2021 5:05 AM CDT) Anatomical Region Laterality Modality Chest Radiographic Sera ging 02/23/2021 5:19 AM CDT Impressions 02/23/2021 10:53 AM CDT FINDINGS/IMPRESSION: An endotracheal tube terminates in mid thoracic trachea. A left subclavian approach central venous catheter terminates in the left brachiocephalic vein. A gastric tube courses to the stomach out of the [id number]. A right thoracostomy tube is unchanged in position. Small bilateral pleural effusions are suggested. Bibasilar airspace opacities may represent atelectasis and/or airspace disease. There is no pneumothorax. The cardiomediastinal silhouette is partially obscured. Dictated by Alverto Ames MD (residential leasing manager). I, Dr. NENA CLEMENTE have personally reviewed and interpreted this examination/study. This report was electronically signed by NENA CLEMENTE ??on 02/23/2021 10:53 AM . Narrative 02/23/2021 10:53 AM CDT EXAMINATION: XR CHEST 1VW PORTABLE, 02/23/2021 5:05 AM HISTORY: T14.90XA: Trauma COMPARISON: Comparison is made with a study from 02/22/2021. Procedure Note Nena Clemente DO - 02/23/2021 EXAMINATION: XR CHEST 1VW PORTABLE, 02/23/2021 5:05 AM HISTORY: T14.90XA: Trauma COMPARISON: Comparison is made with a study from 02/22/2021. FINDINGS/IMPRESSION: An endotracheal tube terminates in mid thoracic trachea. A left subclavian approach central venous catheter terminates in theleft brachiocephalic vein. A gastric tube courses to the stomach out of the [id number]. A right thoracostomy tube is unchanged in position. Small bilateral pleural effusions are suggested. Bibasilar airspace opacities may represent atelectasis and/or airspace disease. There is no pneumothorax. The cardiomediastinal silhouette is partially obscured. Dictated by Alverto Ames MD (residential leasing manager). I, Dr. NENA CLEMENTE have personally reviewed and interpreted this examination/study. This report was electronically signed by NENA CLEMENTE on 02/23/2021 10:53 AM . Fredy Felipe MD DIAGNOSTIC IMAGING O RDERABLES * PREPARE (CROSSMATCH) RBC UNIT(S), 2 Units (02/23/2021 1:17 AM CDT) Unit Description AS1 LR PRBC [facility] Unit ABO O [facility] Unit Rh POS [facility] Product Number R02 [facility] B LO[facility] B[facility] Unit Donor # [id number] [facility] Unit Status released [facility] BL[facility] D [facility] Product Code [id number] [facility] Blood Type Barcode 5100 [facility] Expiration Date S BLOOD BANK LAB Unit Description AS1 LR PRBC [facility] Unit ABO O [facility] Unit Rh POS [facility] Product Number R02 [facility] B LOOD B[facility] Unit Donor # [id number] [facility] Unit Status released [facility] Product Code [id number] [facility] B[facility] OD [facility] Blood Type Barcode 5100 [facility] Expiration Date S BLOOD BANK LAB Blood Bank BLOOD SPECIMEN / Unknown 02/19/2021 7:34 AM CDT Fredy Felipe MD LAB - BLOOD BANK ORD ERABLES [facility] [address] [place] [address], [facility] [phone] * (ABNORMAL) CBC W AUTO DIFFERENTIAL (02/23/2021 12:21 AM CDT) WBC 13.5(H) 3.5 - 10.5 10? 3 /uL 02/23/2021 1:02 AM CDT [facility] RBC 4.32 4.30 - 5.70 10? 6 /uL 02/23/2021 1:02 AM T [facility] Hemoglobin 12.0 12.0 - 17.6 g/dL 02/23/2021 1:02 AM T [facility] Hematocrit 38.1 35.2 - 51.7 % 02/23/2021 1:02 AM T [facility] MCV 88.2 80.7 - 98.3 fL 02/23/2021 1:02 AM T [facility] MCH 27.8 26.7 - 34.0 pg 02/23/2021 1:02 AM [facility] MCHC 31.5 30.8 - 35.9 g/dL 02/23/2021 1:02 AM [facility] Platelet Count 403(H) 150 - 400 10? 3 /uL 02/23/2021 1:02 AM [facility] RDW-SD 45.1 36.0 - 50.0 fL 02/23/2021 1:02 AM [facility] RDW-CV 14.0 11.2 - 14.8 % 02/23/2021 1:02 AM [facility] MPV 9.2(L) 9.4 - 12.9 fL 02/23/2021 1:02 AM [facility] nRBC Absolute 0.00 0 10? 3 /uL 02/23/2021 1:02 AM [facility] nRBC Auto 0.0 0 /100 WBC 02/23/2021 1:02 AM [facility] Neutrophils % 74.4(H) 35.0 - 70.0 % 02/23/2021 1:02 AM [facility] Lymphocytes % 10.5(L) 20.0 - 43.0 % 02/23/2021 1:02 AM [facility] Monocytes % 9.6 5.0 - 13.0 % 02/23/2021 1:02 AM [facility] Eosinophils % 4.0 0.0 - 6.0 % 02/23/2021 1:02 AM [facility] Basophil % 0.2 0.0 - 2.0 % 02/23/2021 1:02 AM [facility] Neutrophils Absolute 10.0(H) 1.6 - 7.0 10? 3 /uL 02/23/2021 1:02 AM [facility] Lymphocyte Absolute 1.4 1.1 - 3.9 10? 3 /uL 02/23/2021 1:02 AM [facility] Monocytes Absolute 1.30(H) 0.26 - 1.07 10? 3 /uL 02/23/2021 1:02 AM [facility] Eosinophils Absolute 0.54(H) 0.00 - 0.47 10? 3 /uL 02/23/2021 1:02 AM [facility] Basophils Absolute 0.03 0.00 - 0.08 10? 3 /uL 02/23/2021 1:02 AM [facility] Immature Granulocytes % 1.3(H) 0.0 - 1.0 % 02/23/2021 1:02 AM [facility] Immature Granulocytes Absolute 0.18 02/23/2021 1:02 AM [facility] Blood BLOOD SPECIMEN / Unknown Venipuncture / Unknown 02/23/2021 12:21 AM CDT 02/23/2021 12:57 AM T Fredy Felipe MD LAB - HEMATOLOGY ORD ERABLES [facility] [address] [place] [address], [facility] [phone] * (ABNORMAL) BASIC METABOLIC PANEL (CALCIUM TOTAL) (02/23/2021 12:21 AM T) BUN 10 7 - 26 mg/dL 02/23/2021 1:22 AM [facility] Creatinine 0.84 0.71 - 1.16 mg/dL 02/23/2021 1:22 AM [facility] Sodium 139 136 - 145 mmol/L 02/23/2021 1:22 AM [facility] Potassium 4.2 3.5 - 4.5 mmol/L 02/23/2021 1:22 AM [facility] Chloride 103 98 - 107 mmol/L 02/23/2021 1:22 AM [facility] CO2 30(H) 22 - 29 mmol/L 02/23/2021 1:22 AM [facility] Glucose 145(H) 70 - 115 mg/dL 02/23/2021 1:22 AM [facility] Calcium 8.4 8.4 - 10.2 mg/dL 02/23/2021 1:22 AM [facility] Anion Gap 10 8 - 18 02/23/2021 1:22 AM [facility] BUN/Creatinine Ratio 12 7 - 23 02/23/2021 1:22 AM [facility] Osmolality Calculated 290 270 - 300 mOsm/kg 02/23/2021 1:22 AM [facility] eGFR by CKD-EPI >90 >=90 mL/min/1.7 3 m2 02/23/2021 1:22 AM [facility] Blood BLOOD SPECIMEN / Unknown Venipuncture / Unknown 02/23/2021 12:21 AM CDT 02/23/2021 12:57 AM T Fredy Felipe MD LAB - CHEMISTRY JOSE ENRIQUE VELA [facility] Organization Address City/State/ZIP Co de Phone Number [facility] [address] [place] [address], [facility] [phone] * (ABNORMAL) BLOOD GASES ART + COOX PANEL (02/23/2021 12:21 AM [facility]) pH Arterial 7.43 7.35 - 7.45 pH 02/23/2021 1:02 AM [facility] pO2 Arterial 110(H) 80 - 100 mmHg 02/23/2021 1:02 AM [facility] pCO2 Arterial 44 35 - 45 mmHg 1:02 AM [facility] HCO3 Arterial 29 20 - 30 mmol/l 02/23/2021 1:02 AM [facility] BE Arterial 4.3(H) -2.0 - 2.0 mmol/L 02/23/2021 1:02 AM [facility] Oxyhemoglobin Arterial 97.1 % 02/23/2021 1:02 AM [facility] Dexoyhemoglobin (HHB) % 0.6 % 02/23/2021 1:02 AM [facility] Methemoglobin 0.8 0.0 - 2.0 % 02/23/2021 1:02 AM [facility] Carboxyhemoglobin 1.5 0.0 - 2.0 % 2020 1:02 AM [facility] O2 Content Arterial 17.5 Interpret within clinical context mg/dL 02/23/2021 1:02 AM [facility] Hemoglobin by COOX 12.7 12.0 - 17.6 g/dL 02/23/2021 1:02 AM T [facility] O2 Saturation Arterial 99 90 - 100 % 02/23/2021 1:02 AM [facility] FI O2 Arterial 55.0 % 02/23/2021 1:02 AM T [facility] Blood, arterial ARTERIAL BLOOD SPECIMEN / Unknown Arterial Puncture / Unknown 02/23/2021 12:21 AM CDT 02/23/2021 12:55 AM CDT Narrative [facility] - 02/23/2021 1:02 AM CDT Carboxyhemoglobin Normal Concentration: Non-smokers: 0-2%; Smokers: 0-9%; Toxic: >20% Fredy Felipe MD LAB - BLOOD GASES OR DERABLES Performing Organization Address [facility] de Phone Number [address] [address], [facility] [phone] * PT-INR [facility] (02/23/2021 12:21 AM CDT) PT 14.4 12.1 - 14.8 Seconds 02/23/2021 1:07 AM [facility] INR 1.2 See Comment 02/23/2021 1:07 AM [facility] Comment:The suggested therap eutic range for standard coumadin (warfarin) therapy is an INR of 2.0-3.0. For high-risk patients (Mechanical Mitral Valve Prosthesis, etc.), the suggested prophylactic therapeutic range is an INR of 2.5-3.5. Blood BLOOD SPECIMEN / Unknown Venipuncture / Unknown 02/23/2021 12:21 AM CDT 02/23/2021 12:59 AM CDT Fredy Felipe MD LAB - COAGULATION OR DERABLES Performing Organization Address [facility] Co de Phone Number [address] [address], [facility] [phone] * PHOSPHORUS BLOOD (02/23/2021 12:21 AM CDT) Phosphorus 3.9 2.8 - 5.1 mg/dL 02/23/2021 1:22 AM CDT [facility] Blood BLOOD SPECIMEN / Unknown Venipuncture / Unknown 02/23/2021 12:21 AM CDT 02/23/2021 12:57 AM CDT Fredy Felipe MD LAB - CHEMISTRY JOSE ENRIQUE VELA [address] [address], [facility] [phone] * MAGNESIUM BLOOD (02/23/2021 12:21 AM CDT) Magnesium 2.1 1.6 - 2.6 mg/dL 02/23/2021 1:22 AM CDT [facility] Blood BLOOD SPECIMEN / Unknown Venipuncture / Unknown 02/23/2021 12:21 AM CDT 02/23/2021 12:57 AM CDT Fredy Felipe MD LAB - CHEMISTRY JOSE ENRIQUE VELA Performing Organization Address [facility]/ZIP Co de Phone Number [address] [address], [facility] [phone] * (ABNORMAL) CALCIUM IONIZED WHOLE BLOOD (02/23/2021 12:21 AM CDT) Calcium Ionized 1.12 mmol/L 02/23/2021 1:05 AM CDT [facility] pH 7.44 7.35 - 7.45 pH 02/23/2021 1:05 AM CDT [facility] Ionized Calcium pH Adjusted 1.14(L) 1.19 - 1.34 mmol/L 02/23/2021 1:05 AM CDT [facility] Blood BLOOD SPECIMEN / Unknown Venipuncture / Unknown 02/23/2021 12:21 AM CDT 02/23/2021 12:55 AM CDT Fredy Felipe MD LAB - CHEMISTRY JOSE ENRIQUE VELA [address] [address], [place] [phone] * CREATININE URINE RANDOM (02/22/2021 5:45 AM CDT) Creatinine Urine 212 Not Established mg/dL 02/22/2021 6:25 AM CDT [facility] Urine URINE SPECIMEN OBTAINED BY CLEAN CATCH PROCEDURE / Unknown Collection / Unknown 02/22/2021 5:45 AM CDT 02/22/2021 6:13 AM CDT Dino Hudson PA-C LAB - URINE CHEMI STRY ORDERABLES [address] [address], [facility] [phone] * UREA NITROGEN URINE RANDOM (02/22/2021 5:45 AM CDT) Urea Nitrogen Random Urine 1,198 Not Established mg/dL 02/22/2021 6:25 AM CDT [facility] Urine URINE SPECIMEN OBTAINED BY CLEAN CATCH PROCEDURE / Unknown Collection / Unknown 02/22/2021 5:45 AM CDT 02/22/2021 6:13 AM CDT Dino MORIN-C LAB - URINE CHEMI STRY ORDERABLES [address] [address], [place] [phone] * SODIUM URINE RANDOM (02/22/2021 5:45 AM CDT) Sodium Urine 56 Not Established mmol/L 02/22/2021 6:25 AM CDT [facility] Urine URINE SPECIMEN OBTAINED BY CLEAN CATCH PROCEDURE / Unknown Collection / Unknown 02/22/2021 5:45 AM CDT 02/22/2021 6:13 AM CDT Dino Hudson PA-C LAB - URINE CHEMI STRY ORDERABLES [facility] [address] [place] [address], [facility] [phone] * (ABNORMAL) URINALYSIS W/MICROSCOPIC NO CULTURE (02/22/2021 5:44 AM [facility]) Color UA Janis(A) Straw, Yellow 02/22/2021 6:08 AM [facility] Clarity UA Slt Cloudy(A) Clear 02/22/2021 6:08 AM [facility] Specific [place] UA 1.024 1.005 - 1.030 02/22/2021 6:08 AM [facility] pH UA 5.0 5.0 - 8.0 pH 02/22/2021 6:08 AM [facility] Protein UA 1+(A) Negative 02/22/2021 6:08 AM [facility] Glucose UA Negative Negative 02/22/2021 6:08 AM [facility] Ketone UA Negative Negative 02/22/2021 6:08 AM [facility] Bilirubin UA Negative Negative 02/22/2021 6:08 AM [facility] Blood UA 2+(A) Negative 02/22/2021 6:08 AM [facility] Nitrite UA Negative Negative 02/22/2021 6:08 AM [facility] Leukocyte Esterase Negative Negative 02/22/2021 6:08 AM [facility] Urobilinogen UA Negative Negative mg/dL 02/22/2021 6:08 AM [facility] RBC UA 51-100(A) None Seen, 0-2, 3-5 /HPF 02/22/2021 6:08 AM [facility] WBC UA 6-10(A) None Seen, 0-5 /HPF 02/22/2021 6:08 AM [facility] Bacteria UA 1+(A) None /HPF 02/22/2021 6:08 AM [facility] Squamous Epithelial Cells UA None Seen None Seen, 0-2, 3-5 /HPF 02/22/2021 6:08 AM [facility] Mucus UA 1+ /LPF 02/22/2021 6:08 AM CDT [facility] Urine URINE SPECIMEN OBTAINED VIA [employer] [facility]IN[facility] CATHETER / Unknown Collection / Unknown 02/22/2021 5:44 AM CDT 02/22/2021 5:49 AM CDT Narrative [facility] - 02/22/2021 6:08 AM CDT Dino Hudson PA-C LAB - URINALYSIS ORDERABLES [facility] [address] [place] [address], [facility] [phone] * XR CHEST 1VW PORTABLE (02/22/2021 4:54 AM CDT) Anatomical Region Laterality Modality Chest Radiographic Sera ging 02/22/2021 4:48 AM CDT Impressions 02/22/2021 3:30 PM CDT FINDINGS/IMPRESSION: *Endotracheal tube tip superimposes the midthoracic trachea. *Enteric tube courses below the diaphragm with tip not visualized. *Right-sided thoracostomy tube is unchanged in position. Right patchy airspace opacities are slightly increased compared to the prior exam which might represent atelectasis and/or airspace disease or contusion in setting of trauma. A left retrocardiac opacity is redemonstrated. Bilateral small pleural effusion are persist. No pneumothorax is visible. The cardiomediastinal silhouette is partially obscured. Report drafted by Luba Man M.D. (resident) I, Dr. NENA CLEMENTE have personally reviewed and interpreted this examination/study. This report was electronically signed by NENA CLEMENTE ??on 02/22/2021 3:30 PM . Narrative 02/22/2021 3:30 PM CDT EXAMINATION: XR CHEST 1VW PORTABLE HISTORY: T88.4XXA: Difficult airway for intubation, initial encounter COMPARISON: Chest x-ray dated 02/21/2021 Procedure Note Nena Clemente DO - 02/22/2021 EXAMINATION: XR CHEST 1VW PORTABLE HISTORY: T88.4XXA: Difficult airway for intubation, initial encounter COMPARISON: Chest x-ray dated 02/21/2021 FINDINGS/IMPRESSION: *Endotracheal tube tip superimposes the midthoracic trachea. *Enteric tube courses below the diaphragm with tip not visualized. *Right-sided thoracostomy tube is unchanged in position. Right patchy airspace opacities are slightly increased compared to the prior exam which might represent atelectasis and/or airspace disease or contusion in setting of trauma. A left retrocardiac opacity is redemonstrated. Bilateral small pleural effusion are persist. No pneumothorax is visible. The cardiomediastinal silhouette is partially obscured. Report drafted by Luba Man M.D. (resident) I, Dr. NENA CLEMENTE have personally reviewed and interpreted this examination/study. This report was electronically signed by NENA CLEMENTE on 02/22/2021 3:30 PM . Fredy Felipe MD DIAGNOSTIC IMAGING O RDERABLES * (ABNORMAL) BLOOD GASES ART + COOX PANEL (02/22/2021 3:17 AM [facility]) pH Arterial 7.41 7.35 - 7.45 pH 02/22/2021 3:23 AM [facility] pO2 Arterial 94 80 - 100 mmHg 02/22/2021 3:23 AM [facility] pCO2 Arterial 46(H) 35 - 45 mmHg 3:23 AM [facility] HCO3 Arterial 29 20 - 30 mmol/l 02/22/2021 3:23 AM [facility] BE Arterial 3.8(H) -2.0 - 2.0 mmol/L 02/22/2021 3:23 AM [facility] Oxyhemoglobin Arterial 96.7 % 02/22/2021 3:23 AM [facility] Dexoyhemoglobin (HHB) % 0.8 % 02/22/2021 3:23 AM [facility] Methemoglobin <0.8 0.0 - 2.0 % 02/22/2021 3:23 AM [facility] Carboxyhemoglobin 2.2(H) 0.0 - 2.0 % 2020 3[facility] Content Arterial 19.2 Interpret within clinical context mg/dL 02/22/2021 3:23 AM [facility] Hemoglobin by COOX 14.1 12.0 - 17.6 g/dL 02/22/2021 3:23 AM [facility] O2 Saturation Arterial 99 90 - 100 % 02/22/2021 3:23 AM [facility] FI O2 Arterial 55.0 % 02/22/2021 3:23 AM [facility] Blood, arterial ARTERIAL BLOOD SPECIMEN / Unknown Arterial Puncture / Unknown 02/22/2021 3:17 AM CDT 02/22/2021 3:20 AM T [facility] - 02/22/2021 3:23 AM CDT Carboxyhemoglobin Normal Concentration: Non-smokers: 0-2%; Smokers: 0-9%; Toxic: >20% Dino Hudson PA-C LAB - BLOOD GASES ORDERABLES Performing Organization Address City/State/[facility] Co de Phone Number [facility] [address] [place] [phone] [phone] * (ABNORMAL) CBC W AUTO DIFFERENTIAL (02/21/2021 11:12 PM CDT) WBC 14.5(H) 3.5 - 10.5 10? 3 /uL 02/21/2021 11:21 PM [facility] RBC 4.88 4.30 - 5.70 10? 6 /uL 02/21/2021 11:21 PM [facility] Hemoglobin 13.7 12.0 - 17.6 g/dL 02/21/2021 11:21 PM [facility] Hematocrit 41.8 35.2 - 51.7 % 02/21/2021 11:21 PM [facility] MCV 85.7 80.7 - 98.3 fL 02/21/2021 11:21 PM [facility] MCH 28.1 26.7 - 34.0 pg 02/21/2021 11:21 PM [facility] MCHC 32.8 30.8 - 35.9 g/dL 02/21/2021 11:21 PM [facility] Platelet Count 374 150 - 400 10? 3 /uL 02/21/2021 11:21 PM [facility] RDW-SD 42.4 36.0 - 50.0 fL 02/21/2021 11:21 PM [facility] RDW-CV 13.7 11.2 - 14.8 % 02/21/2021 11:21 PM [facility] MPV 9.1(L) 9.4 - 12.9 fL 02/21/2021 11:21 PM [facility] nRBC Absolute 0.00 0 10? 3 /uL 02/21/2021 11:21 PM [facility] nRBC Auto 0.0 0 /100 WBC 02/21/2021 11:21 PM [facility] Neutrophils % 82.8(H) 35.0 - 70.0 % 02/21/2021 11:21 PM [facility] Lymphocytes % 6.9(L) 20.0 - 43.0 % 02/21/2021 11:21 PM [facility] Monocytes % 7.6 5.0 - 13.0 % 02/21/2021 11:21 PM [facility] Eosinophils % 1.0 0.0 - 6.0 % 02/21/2021 11:21 PM [facility] Basophil % 0.3 0.0 - 2.0 % 02/21/2021 11:21 PM [facility] Neutrophils Absolute 12.0(H) 1.6 - 7.0 10? 3 /uL 02/21/2021 11:21 PM [facility] Lymphocyte Absolute 1.0(L) 1.1 - 3.9 10? 3 /uL 02/21/2021 11:21 PM [facility] Monocytes Absolute 1.10(H) 0.26 - 1.07 10? 3 /uL 02/21/2021 11:21 PM [facility] Eosinophils Absolute 0.14 0.00 - 0.47 10? 3 /uL 02/21/2021 11:21 PM [facility] Basophils Absolute 0.05 0.00 - 0.08 10? 3 /uL 02/21/2021 11:21 PM [facility] Immature Granulocytes % 1.4(H) 0.0 - 1.0 % 02/21/2021 11:21 PM [facility] Immature Granulocytes Absolute 0.21 02/21/2021 11:21 PM [facility] Blood BLOOD SPECIMEN / Unknown Venipuncture / Unknown 02/21/2021 11:12 PM CDT 02/21/2021 11:17 PM T Fredy Felipe MD LAB - HEMATOLOGY ORD ERABLES [facility] [address] [place] [address], [facility] [phone] * (ABNORMAL) BASIC METABOLIC PANEL (CALCIUM TOTAL) (02/21/2021 11:12 PM T) BUN 15 7 - 26 mg/dL 02/21/2021 11:42 PM [facility] Creatinine 1.13 0.71 - 1.16 mg/dL 02/21/2021 11:42 PM [facility] Sodium 141 136 - 145 mmol/L 02/21/2021 11:42 PM [facility] Potassium 4.3 3.5 - 4.5 mmol/L 02/21/2021 11:42 PM [facility] Chloride 105 98 - 107 mmol/L 02/21/2021 11:42 PM [facility] CO2 22 22 - 29 mmol/L 02/21/2021 11:42 PM [facility] Glucose 126(H) 70 - 115 mg/dL 02/21/2021 11:42 PM [facility] Calcium 8.5 8.4 - 10.2 mg/dL 02/21/2021 11:42 PM [facility] Anion Gap 18 8 - 18 02/21/2021 11:42 PM [facility] BUN/Creatinine Ratio 13 7 - 23 02/21/2021 11:42 PM [facility] Osmolality Calculated 294 270 - 300 mOsm/kg 02/21/2021 11:42 PM [facility] eGFR by CKD-EPI 84(L) >=90 mL/min/1.7 3 m2 02/21/2021 11:42 PM [facility] Blood BLOOD SPECIMEN / Unknown Venipuncture / Unknown 02/21/2021 11:12 PM CDT 02/21/2021 11:16 PM CDT Fredy Felipe MD LAB - CHEMISTRY [facility] Organization Address City/State/ZIP Co de Phone Number [facility] [address] [place] [address], [facility] [phone] * (ABNORMAL) BLOOD GASES ART + COOX PANEL (02/21/2021 11:12 PM CDT) pH Arterial 7.60(H) 7.35 - 7.45 pH 02/21/2021 11:20 PM [facility] pO2 Arterial 185(H) 80 - 100 mmHg 02/21/2021 11:20 PM [facility] pCO2 Arterial 26(L) 35 - 45 mmHg 11:20 PM [facility] HCO3 Arterial 26 20 - 30 mmol/l 02/21/2021 11:20 PM [facility] BE Arterial 5.1(H) -2.0 - 2.0 mmol/L 02/21/2021 11:20 PM [facility] Oxyhemoglobin Arterial 97.5 % 02/21/2021 11:20 PM [facility] Dexoyhemoglobin (HHB) % 0.3 % 02/21/2021 11:20 PM [facility] Methemoglobin 0.9 0.0 - 2.0 % 02/21/2021 11:20 PM [facility] Carboxyhemoglobin 1.3 0.0 - 2.0 % 2020 11:20 PM [facility] O2 Content Arterial 20.2 Interpret within clinical context mg/dL 02/21/2021 11:20 PM [facility] Hemoglobin by COOX 14.5 12.0 - 17.6 g/dL 02/21/2021 11:20 PM [facility] O2 Saturation Arterial 100 90 - 100 % 02/21/2021 11:20 PM CDT [facility] FI O2 Arterial 60.0 % 02/21/2021 11:20 PM CDT [facility] Blood, arterial ARTERIAL BLOOD SPECIMEN / Unknown Arterial Puncture / Unknown 02/21/2021 11:12 PM CDT 02/21/2021 11:18 PM CDT Narrative [facility] - 02/21/2021 11:20 PM CDT Carboxyhemoglobin Normal Concentration: Non-smokers: 0-2%; Smokers: 0-9%; Toxic: >20% Fredy Felipe MD LAB - BLOOD GASES OR DERABLES Performing Organization Address [facility]/ZIP Co de Phone Number [address] [address], [facility] [phone] * (ABNORMAL) PT-INR [facility] (02/21/2021 11:12 PM CDT) PT 15.2(H) 12.1 - 14.8 Seconds 02/21/2021 11:31 PM CDT [facility] INR 1.2 See Comment 02/21/2021 11:31 PM T [facility] Comment:The suggested therap eutic range for standard coumadin (warfarin) therapy is an INR of 2.0-3.0. For high-risk patients (Mechanical Mitral Valve Prosthesis, etc.), the suggested prophylactic therapeutic range is an INR of 2.5-3.5. Blood BLOOD SPECIMEN / Unknown Venipuncture / Unknown 02/21/2021 11:12 PM CDT 02/21/2021 11:18 PM CDT Fredy Felipe MD LAB - COAGULATION OR DERABLES [facility] [address] [place] [id number], [place] [phone] * PHOSPHORUS BLOOD (02/21/2021 11:12 PM CDT) Phosphorus 3.5 2.8 - 5.1 mg/dL 02/21/2021 11:42 PM CDT [facility] Blood BLOOD SPECIMEN / Unknown Venipuncture / Unknown 02/21/2021 11:12 PM CDT 02/21/2021 11:16 PM CDT Fredy Felipe MD LAB - CHEMISTRY JOSE ENRIQUE VELA [address] [address], [place] [phone] * MAGNESIUM BLOOD (02/21/2021 11:12 PM CDT) Magnesium 1.8 1.6 - 2.6 mg/dL 02/21/2021 11:42 PM CDT [facility] Blood BLOOD SPECIMEN / Unknown Venipuncture / Unknown 02/21/2021 11:12 PM CDT 02/21/2021 11:16 PM CDT Fredy Felipe MD LAB - CHEMISTRY JOSE ENRIQUE VELA Performing Organization Address City/[facility]/ZIP Co de Phone Number [address] [address], [place] [phone] * (ABNORMAL) CALCIUM IONIZED WHOLE BLOOD (02/21/2021 11:12 PM CDT) Calcium Ionized 1.10 mmol/L 02/21/2021 11:21 PM CDT [facility] pH 7.62(H) 7.35 - 7.45 pH 02/21/2021 11:21 PM CDT [facility] Ionized Calcium pH Adjusted 1.20 1.19 - 1.34 mmol/L 02/21/2021 11:21 PM CDT [facility] Blood BLOOD SPECIMEN / Unknown Venipuncture / Unknown 02/21/2021 11:12 PM CDT 02/21/2021 11:18 PM CDT Fredy Felipe MD LAB - CHEMISTRY JOSE ENRIQUE VELA Performing Organization Address City/[facility]/ZIP Co de Phone Number [address] [address], [place] [phone] * (ABNORMAL) TRIGLYCERIDES BLOOD (02/21/2021 11:12 PM CDT) Triglycerides 236(H) <150 mg/dL 02/21/2021 11:42 PM CDT [facility] Comment: ATP III Classification of Triglycerides: ?<150 mg/dL: ??Normal ? 150 - 199 mg/dL: ??Borderline High ? 200 - 400 mg/dL: ??High ?>500 mg/dL: ??Very High Blood BLOOD SPECIMEN / Unknown Venipuncture / Unknown 02/21/2021 11:12 PM CDT 02/21/2021 11:16 PM CDT Fredy Felipe MD LAB - CHEMISTRY JOSE ENRIQUE VELA [facility] Organization Address City/State/ZIP Co de Phone Number [facility] [address] [place] [phone], [facility] [phone] * XR FOREARM RIGHT 2VW (02/21/2021 9:01 AM CDT) Anatomical Region Laterality Modality Upper Extremity Radiographic Sera ging 02/21/2021 9:07 AM CDT Impressions 02/21/2021 10:41 AM CDT IMPRESSION: No acute radial or ulnar fracture identified. Dictated by Rico Sawant D.O. (Rn Procedures) I, Dr. CHOCO JIN MD have personally reviewed and interpreted this [...] fracture identified. Dictated by Rico Sawant D.O. (Rn Procedures) Dr. CHOCO Yao MD have personally reviewed and interpreted this examination/study. This report was electronically signed by CHOCO JIN MD on02/21/2021 10:41 AM . Fredy Felipe MD DIAGNOSTIC IMAGING O RDERABLES * XR CHEST 1VW PORTABLE (02/21/2021 5:02 AM CDT) Anatomical Region Laterality Modality Chest Radiographic Sera ging 02/21/2021 9:50 AM CDT Impressions 02/21/2021 11:05 AM CDT FINDINGS/IMPRESSION: Examination is limited by patient positioning and exclusion of the right costophrenic angle. Lines and tubes: *Endotracheal tube terminates in the midthoracic trachea. *Enteric tube is followed below the diaphragm with the terminus outside field of view. *Left subclavian approach central venous catheter terminates in the left brachycephalic vein. *Right apically oriented thoracostomy tube is unchanged in position. Low lung volumes with associated bronchovascular crowding. Patchy perihilar opacities are not significantly changed from prior. Left basilar opacity is increased which may be due to some combination of pleural fluid, atelectasis, and airspace disease. The heart size and mediastinal contours are normal. Dictated by Rico Sawant DO (residential leasing manager). Dr. AFRICA Yao M.D. have personally reviewed and interpreted this examination/study. This report was electronically signed by AFRICA HENRIQUEZ M.D. ??on 02/21/2021 11:05 AM . Narrative 02/21/2021 11:05 AM CDT EXAMINATION: XR CHEST 1VW PORTABLE HISTORY: T14.90XA: Trauma COMPARISON: Comparison is made with chest dated 11/20/2020. Procedure Note Africa Henriquez MD - 02/21/2021 EXAMINATION: XR CHEST 1VW PORTABLE HISTORY: T14.90XA: Trauma COMPARISON: Comparison is made with chest dated 11/20/2020. FINDINGS/IMPRESSION: Examination is limited by patient positioning and exclusion of the right costophrenic angle. Lines and tubes: *Endotracheal tube terminates in the midthoracic trachea. *Enteric tube is followed below the diaphragm with the terminus outside field of view. *Left subclavian approach central venous catheter terminates in the left brachycephalic vein. *Right apically oriented thoracostomy tube is unchanged in position. Low lung volumes with associated bronchovascular crowding. Patchy perihilar opacities are not significantly changed from prior. Leftbasilar opacity is increased which may be due to some combination of pleural fluid, atelectasis, and airspace disease. The heart size and mediastinal contours are normal. Dictated by Rico Sawant DO (residential leasing manager). I, Dr. AFRICA HENRIQUEZ M.D. have personally reviewed and interpreted this examination/study. This report was electronically signed by AFRICA HENRIQUEZ M.D. on 02/21/2021 11:05 AM . Fredy Felipe MD DIAGNOSTIC IMAGING O RDERABLES * (ABNORMAL) CBC W AUTO DIFFERENTIAL (02/20/2021 11:26 PM CDT) WBC 14.6(H) 3.5 - 10.5 10? 3 /uL 02/20/2021 11:36 PM [facility] RBC 5.46 4.30 - 5.70 10? 6 /uL 02/20/2021 11:36 PM [facility] Hemoglobin 15.0 12.0 - 17.6 g/dL 02/20/2021 11:36 PM [facility] Hematocrit 46.7 35.2 - 51.7 % 02/20/2021 11:36 PM [facility] MCV 85.5 80.7 - 98.3 fL 02/20/2021 11:36 PM [facility] MCH 27.5 26.7 - 34.0 pg 02/20/2021 11:36 PM [facility] MCHC 32.1 30.8 - 35.9 g/dL 02/20/2021 11:36 PM [facility] Platelet Count 392 150 - 400 10? 3 /uL 02/20/2021 11:36 PM [facility] RDW-SD 42.8 36.0 - 50.0 fL 02/20/2021 11:36 PM [facility] RDW-CV 13.9 11.2 - 14.8 % 02/20/2021 11:36 PM [facility] MPV 9.0(L) 9.4 - 12.9 fL 02/20/2021 11:36 PM [facility] nRBC Absolute 0.00 0 10? 3 /uL 02/20/2021 11:36 PM [facility] nRBC Auto 0.0 0 /100 WBC 02/20/2021 11:36 PM [facility] Neutrophils % 82.1(H) 35.0 - 70.0 % 02/20/2021 11:36 PM [facility] Lymphocytes % 5.4(L) 20.0 - 43.0 % 02/20/2021 11:36 PM [facility] Monocytes % 9.4 5.0 - 13.0 % 02/20/2021 11:36 PM [facility] Eosinophils % 2.0 0.0 - 6.0 % 02/20/2021 11:36 PM [facility] Basophil % 0.4 0.0 - 2.0 % 02/20/2021 11:36 PM [facility] Neutrophils Absolute 12.0(H) 1.6 - 7.0 10? 3 /uL 02/20/2021 11:36 PM [facility] Lymphocyte Absolute 0.8(L) 1.1 - 3.9 10? 3 /uL 02/20/2021 11:36 PM [facility] Monocytes Absolute 1.37(H) 0.26 - 1.07 10? 3 /uL 02/20/2021 11:36 PM [facility] Eosinophils Absolute 0.29 0.00 - 0.47 10? 3 /uL 02/20/2021 11:36 PM [facility] Basophils Absolute 0.06 0.00 - 0.08 10? 3 /uL 02/20/2021 11:36 PM [facility] Immature Granulocytes % 0.7 0.0 - 1.0 % 02/20/2021 11:36 PM T [facility] Immature Granulocytes Absolute 0.10 02/20/2021 11:36 PM [facility] Blood BLOOD SPECIMEN / Unknown Venipuncture / Unknown 02/20/2021 11:26 PM CDT 02/20/2021 11:31 PM CDT Fredy Felipe MD LAB - HEMATOLOGY ORD ERABLES [facility] [address] [place] [address], [facility] [phone] * BASIC METABOLIC PANEL (CALCIUM TOTAL) (02/20/2021 11:26 PM CDT) BUN 12 7 - 26 mg/dL 02/20/2021 11:54 PM [facility] Creatinine 0.75 0.71 - 1.16 mg/dL 02/20/2021 11:54 PM [facility] Sodium 142 136 - 145 mmol/L 02/20/2021 11:54 PM [facility] Potassium 4.0 3.5 - 4.5 mmol/L 02/20/2021 11:54 PM [facility] Chloride 105 98 - 107 mmol/L 02/20/2021 11:54 PM [facility] CO2 26 22 - 29 mmol/L 02/20/2021 11:54 PM [facility] Glucose 106 70 - 115 mg/dL 02/20/2021 11:54 PM [facility] Calcium 8.8 8.4 - 10.2 mg/dL 02/20/2021 11:54 PM [facility] Anion Gap 15 8 - 18 02/20/2021 11:54 PM [facility] BUN/Creatinine Ratio 16 7 - 23 02/20/2021 11:54 PM [facility] Osmolality Calculated 294 270 - 300 mOsm/kg 02/20/2021 11:54 PM [facility] eGFR by CKD-EPI >90 >=90 mL/min/1.7 3 m2 02/20/2021 11:54 PM [facility] Blood BLOOD SPECIMEN / Unknown Venipuncture / Unknown 02/20/2021 11:26 PM CDT 02/20/2021 11:30 PM T Fredy Felipe MD LAB - CHEMISTRY JOSE ENRIQUE VELA [facility] [address] [place] [address], [facility] [phone] * (ABNORMAL) BLOOD GASES ART + COOX PANEL (02/20/2021 11:26 PM CDT) pH Arterial 7.41 7.35 - 7.45 pH 02/20/2021 11:32 PM [facility] pO2 Arterial 131(H) 80 - 100 mmHg 02/20/2021 11:32 PM [facility] pCO2 Arterial 40 35 - 45 mmHg 11:32 PM [facility] HCO3 Arterial 25 20 - 30 mmol/l 02/20/2021 11:32 PM [facility] BE Arterial 0.7 -2.0 - 2.0 mmol/L 02/20/2021 11:32 PM [facility] Oxyhemoglobin Arterial 96.8 % 02/20/2021 11:32 PM [facility] Dexoyhemoglobin (HHB) % 0.0 % 02/20/2021 11:32 PM [facility] Methemoglobin <0.8 0.0 - 2.0 % 02/20/2021 11:32 PM [facility] Carboxyhemoglobin 2.7(H) 0.0 - 2.0 % 2020 11:32 PM [facility] O2 Content Arterial 21.3 Interpret within clinical context mg/dL 02/20/2021 11:32 PM [facility] Hemoglobin by COOX 15.5 12.0 - 17.6 g/dL 02/20/2021 11:32 PM [facility] O2 Saturation Arterial 100 90 - 100 % 02/20/2021 11:32 PM [facility] FI O2 Arterial 100.0 % 02/20/2021 11:32 PM CDT [facility] Blood, arterial ARTERIAL BLOOD SPECIMEN / Unknown Arterial Puncture / Unknown 02/20/2021 11:26 PM CDT 02/20/2021 11:30 PM CDT Narrative [facility] - 02/20/2021 11:32 PM CDT Carboxyhemoglobin Normal Concentration: Non-smokers: 0-2%; Smokers: 0-9%; Toxic: >20% Fredy Felipe MD LAB - BLOOD GASES OR DERABLES Performing Organization Address City/[facility]/ZIP Co de Phone Number [address] [address], [facility] [phone] * PT-INR [facility] (02/20/2021 11:26 PM CDT) PT 14.8 12.1 - 14.8 Seconds 02/20/2021 11:45 PM CDT [facility] INR 1.2 See Comment 02/20/2021 11:45 PM CDT [facility] Comment:The suggested therap eutic range for standard coumadin (warfarin) therapy is an INR of 2.0-3.0. For high-risk patients (Mechanical Mitral Valve Prosthesis, etc.), the suggested prophylactic therapeutic range is an INR of 2.5-3.5. Blood BLOOD SPECIMEN / Unknown Venipuncture / Unknown 02/20/2021 11:26 PM CDT 02/20/2021 11:30 PM CDT Fredy Felipe MD LAB - COAGULATION OR DERABLES [address] [address], [facility] [phone] * PHOSPHORUS BLOOD (02/20/2021 11:26 PM CDT) Phosphorus 4.6 2.8 - 5.1 mg/dL 02/20/2021 11:54 PM CDT [facility] Blood BLOOD SPECIMEN / Unknown Venipuncture / Unknown 02/20/2021 11:26 PM CDT 02/20/2021 11:30 PM CDT Fredy Felipe MD LAB - CHEMISTRY JOSE ENRIQUE VELA [address] [address], [place] [phone] * MAGNESIUM BLOOD (02/20/2021 11:26 PM CDT) Magnesium 2.0 1.6 - 2.6 mg/dL 02/20/2021 11:54 PM CDT [facility] Blood BLOOD SPECIMEN / Unknown Venipuncture / Unknown 02/20/2021 11:26 PM CDT 02/20/2021 11:30 PM CDT Fredy Felipe MD LAB - CHEMISTRY JOSE ENRIQUE VELA Performing Organization Address [facility]/ZIP Co de Phone Number [address] [address], [facility] [phone] * (ABNORMAL) CALCIUM IONIZED WHOLE BLOOD (02/20/2021 11:26 PM CDT) Calcium Ionized 1.14 mmol/L 02/20/2021 11:32 PM CDT [facility] pH 7.41 7.35 - 7.45 pH 02/20/2021 11:32 PM CDT [facility] Ionized Calcium pH Adjusted 1.14(L) 1.19 - 1.34 mmol/L 02/20/2021 11:32 PM CDT [facility] Blood BLOOD SPECIMEN / Unknown Venipuncture / Unknown 02/20/2021 11:26 PM CDT 02/20/2021 11:30 PM CDT Fredy Felipe MD LAB - CHEMISTRY JOSE ENRIQUE VELA Performing Organization Address City/[facility]/ZIP Co de Phone Number [address] [address], [place] [phone] * XR CHEST 1VW PORTABLE (02/20/2021 1:56 PM CDT) Anatomical Region Laterality Modality Chest Radiographic Sera ging 02/20/2021 3:53 PM CDT Impressions 02/20/2021 4:27 PM CDT FINDINGS/IMPRESSION: Lines and tubes: *Endotracheal tube terminates in mid thoracic trachea. *There is an NG/OG coursing below the diaphragm, terminus outside the [id number]. *There is a left subclavian approach central venous catheter with its tip terminating within the left brachiocephalic vein. *There is a right-sided thoracostomy tube in unchanged position. There are patchy perihilar and bibasilar opacities unchanged compared to prior. There is a dense left lower lung zone/left retrocardiac opacity, likely representing atelectasis. There is a small left pleural effusion unchanged. There is no right-sided pleural effusion. No pneumothorax. There is unchanged subcutaneous emphysema along the right lateral chest wall at the thoracostomy insertion site. The cardiomediastinal silhouette is stable. Dictated by Rico Sawant DO (residential leasing manager). I, Dr. AFRICA HENRIQUEZ M.D. have personally reviewed and interpreted this examination/study. This report was electronically signed by AFRICA HENRIQUEZ M.D. ??on 02/20/2021 4:27 PM . Narrative 02/20/2021 4:27 PM CDT EXAMINATION: XR CHEST 1VW PORTABLE HISTORY: I46.9: Cardiac arrest COMPARISON: Comparison is made with chest radiograph dated earlier same day. Procedure Note Africa Henriquez MD - 02/20/2021 EXAMINATION: XR CHEST 1VW PORTABLE HISTORY: I46.9: Cardiac arrest COMPARISON: Comparison is made with chest radiograph dated earlier same day. FINDINGS/IMPRESSION: Lines and tubes: *Endotracheal tube terminates in mid thoracic trachea. *There is an NG/OG coursing below the diaphragm, terminus outside the [id number]. *There is a left subclavian approach central venous catheter with itstip terminating within the left brachiocephalic vein. *There is a right-sided thoracostomy tube in unchanged position. There are patchy perihilar and bibasilar opacities unchanged compared to prior. There is a dense left lower lung zone/left retrocardiac opacity, likely representing atelectasis. There is a small left pleural effusion unchanged. There is no right-sided pleural effusion. No pneumothorax. There is unchanged subcutaneous emphysema along the right lateral chest wall at the thoracostomy insertion site. The cardiomediastinalsilhouette is stable. Dictated by Rico Sawant DO (residential leasing manager). Najma, Dr. AFRICA HENRIQUEZ M.D. have personally reviewed and interpreted this examination/study. This report was electronically signed by AFRICA HENRIQUEZ M.D. on 02/20/2021 4:27 PM . Fredy Felipe MD DIAGNOSTIC IMAGING O RDERABLES * XR CHEST 1VW PORTABLE (02/20/2021 4:17 AM CDT) Anatomical Region Laterality Modality Chest Radiographic Sera ging 02/20/2021 2:34 PM CDT Impressions 02/20/2021 3:06 PM CDT FINDINGS/IMPRESSION: Lines and tubes: *Endotracheal tube terminates in mid thoracic trachea. *There is an NG/OG coursing below the diaphragm, the segments of the [id number]. *There is a left subclavian approach central venous catheter with its tip terminating within the left brachiocephalic vein. *There is a right-sided thoracostomy tube in unchanged position. There are patchy perihilar and bibasilar opacities unchanged compared to prior. There is a dense left lower lung zone/left retrocardiac opacity, likely representing atelectasis. There is a small left pleural effusion unchanged. There is no right-sided pleural effusion. No pneumothorax. There is unchanged subcutaneous emphysema along the right lateral chest wall at the thoracostomy insertion site. The cardiomediastinal silhouette is stable. Dictated by Phan Brothers MD (residential leasing manager). Dr. SUNITA Yao have personally reviewed and interpreted this examination/study. This report was electronically signed by SUNITA BAILEY ??on 02/20/2021 3:06 PM . Narrative 02/20/2021 3:06 PM CDT EXAMINATION: XR CHEST 1VW PORTABLE HISTORY: T14.90XA: Trauma COMPARISON: Chest x-ray dated 02/19/2021. Procedure Note Sunita Bailey MD - 02/20/2021 EXAMINATION: XR CHEST 1VW PORTABLE HISTORY: T14.90XA: Trauma COMPARISON: Chest x-ray dated 02/19/2021. FINDINGS/IMPRESSION: Lines and tubes: *Endotracheal tube terminates in mid thoracic trachea. *There is an NG/OG coursing below the diaphragm, the segments of the fzrtt-[id number]. *There is a left subclavian approach central venous catheter with itstip terminating within the left brachiocephalic vein. *There is a right-sided thoracostomy tube in unchanged position. There are patchy perihilar and bibasilar opacities unchanged compared to prior. There is a dense left lower lung zone/left retrocardiac opacity, likely representing atelectasis. There is a small left pleural effusion unchanged. There is no right-sided pleural effusion. No pneumothorax. There is unchanged subcutaneous emphysema along the right lateral chest wall at the thoracostomy insertion site. The cardiomediastinalsilhouette is stable. Dictated by Phan Brothers MD (residential leasing manager). I, Dr. SUNITA BAILEY have personally reviewed and interpreted this examination/study. This report was electronically signed by SUNITA BAILEY on 13:06 PM . Fredy Felipe MD DIAGNOSTIC IMAGING O RDERABLES * BLOOD GASES ART + COOX PANEL (02/20/2021 3:07 AM CDT) pH Arterial 7.41 7.35 - 7.45 pH 02/20/2021 3:12 AM [facility] pO2 Arterial 88 80 - 100 mmHg 02/20/2021 3:12 AM [facility] pCO2 Arterial 41 35 - 45 mmHg 3:12 AM [facility] HCO3 Arterial 26 20 - 30 mmol/l 02/20/2021 3:12 AM [facility] BE Arterial 1.2 -2.0 - 2.0 mmol/L 02/20/2021 3:12 AM [facility] Oxyhemoglobin Arterial 96.0 % 02/20/2021 3:12 AM [facility] Dexoyhemoglobin (HHB) % 1.4 % 02/20/2021 3:12 AM [facility] Methemoglobin 0.9 0.0 - 2.0 % 02/20/2021 3:12 AM [facility] Carboxyhemoglobin 1.7 0.0 - 2.0 % 2020 3:12 AM [facility] O2 Content Arterial 18.7 Interpret within clinical context mg/dL 02/20/2021 3:12 AM [facility] Hemoglobin by COOX 13.8 12.0 - 17.6 g/dL 02/20/2021 3:12 AM [facility] O2 Saturation Arterial 99 90 - 100 % 02/20/2021 3:12 AM [facility] FI O2 Arterial 60.0 % 02/20/2021 3:12 AM [facility] Blood, arterial ARTERIAL BLOOD SPECIMEN / Unknown Arterial Puncture / Unknown 02/20/2021 3:07 AM CDT 02/20/2021 3:10 AM [facility] - 02/20/2021 3:12 AM [facility] Carboxyhemoglobin Normal Concentration: Non-smokers: 0-2%; Smokers: 0-9%; Toxic: >20% Delilah Stubbs APRN-C METAL WASHING MACHINE OPERATOR LAB - BLOOD GASES ORDERABLES [facility] [address] [place] [address], [facility] [phone] * (ABNORMAL) CBC W AUTO DIFFERENTIAL (02/19/2021 11:36 PM CDT) WBC 13.2(H) 3.5 - 10.5 10? 3 /uL 02/19/2021 11:45 PM [facility] RBC 4.92 4.30 - 5.70 10? 6 /uL 02/19/2021 11:45 PM [facility] Hemoglobin 13.8 12.0 - 17.6 g/dL 02/19/2021 11:45 PM [facility] Hematocrit 42.3 35.2 - 51.7 % 02/19/2021 11:45 PM [facility] MCV 86.0 80.7 - 98.3 fL 02/19/2021 11:45 PM [facility] MCH 28.0 26.7 - 34.0 pg 02/19/2021 11:45 PM [facility] MCHC 32.6 30.8 - 35.9 g/dL 02/19/2021 11:45 PM [facility] Platelet Count 371 150 - 400 10? 3 /uL 02/19/2021 11:45 PM [facility] RDW-SD 43.7 36.0 - 50.0 fL 02/19/2021 11:45 PM [facility] RDW-CV 13.8 11.2 - 14.8 % 02/19/2021 11:45 PM [facility] MPV 8.8(L) 9.4 - 12.9 fL 02/19/2021 11:45 PM [facility] nRBC Absolute 0.00 0 10? 3 /uL 02/19/2021 11:45 PM [facility] nRBC Auto 0.0 0 /100 WBC 02/19/2021 11:45 PM [facility] Neutrophils % 78.5(H) 35.0 - 70.0 % 02/19/2021 11:45 PM [facility] Lymphocytes % 8.3(L) 20.0 - 43.0 % 02/19/2021 11:45 PM [facility] Monocytes % 10.4 5.0 - 13.0 % 02/19/2021 11:45 PM [facility] Eosinophils % 1.6 0.0 - 6.0 % 02/19/2021 11:45 PM [facility] Basophil % 0.4 0.0 - 2.0 % 02/19/2021 11:45 PM [facility] Neutrophils Absolute 10.4(H) 1.6 - 7.0 10? 3 /uL 02/19/2021 11:45 PM [facility] Lymphocyte Absolute 1.1 1.1 - 3.9 10? 3 /uL 02/19/2021 11:45 PM [facility] Monocytes Absolute 1.37(H) 0.26 - 1.07 10? 3 /uL 02/19/2021 11:45 PM [facility] Eosinophils Absolute 0.21 0.00 - 0.47 10? 3 /uL 02/19/2021 11:45 PM [facility] Basophils Absolute 0.05 0.00 - 0.08 10? 3 /uL 02/19/2021 11:45 PM [facility] Immature Granulocytes % 0.8 0.0 - 1.0 % 02/19/2021 11:45 PM [facility] Immature Granulocytes Absolute 0.11 02/19/2021 11:45 PM [facility] Blood BLOOD SPECIMEN / Unknown Venipuncture / Unknown 02/19/2021 11:36 PM CDT 02/19/2021 11:41 PM CDT Fredy Felipe MD LAB - HEMATOLOGY ORD ERABLES [facility] [address] [place] [address], [facility] [phone] * BASIC METABOLIC PANEL (CALCIUM TOTAL) (02/19/2021 11:36 PM CDT) BUN 10 7 - 26 mg/dL 02/20/2021 12:08 AM [facility] Creatinine 0.72 0.71 - 1.16 mg/dL 02/20/2021 12:08 AM [facility] Sodium 140 136 - 145 mmol/L 02/20/2021 12:08 AM [facility] Potassium 4.3 3.5 - 4.5 mmol/L 02/20/2021 12:08 AM [facility] Chloride 105 98 - 107 mmol/L 02/20/2021 12:08 AM [facility] CO2 25 22 - 29 mmol/L 02/20/2021 12:08 AM [facility] Glucose 92 70 - 115 mg/dL 02/20/2021 12:08 AM [facility] Calcium 8.9 8.4 - 10.2 mg/dL 02/20/2021 12:08 AM [facility] Anion Gap 14 8 - 18 02/20/2021 12:08 AM [facility] BUN/Creatinine Ratio 14 7 - 23 02/20/2021 12:08 AM [facility] Osmolality Calculated 289 270 - 300 mOsm/kg 02/20/2021 12:08 AM [facility] eGFR by CKD-EPI >90 >=90 mL/min/1.7 3 m2 02/20/2021 12:08 AM [facility] Blood BLOOD SPECIMEN / Unknown Venipuncture / Unknown 02/19/2021 11:36 PM CDT 02/19/2021 11:41 PM T Fredy Felipe MD LAB - CHEMISTRY JOSE ENRIQUE VEL[facility] Organization Address City/State/ZIP Co de Phone Number [facility] [address] [place] [address], [facility] [phone] * BLOOD GASES ART + COOX PANEL (02/19/2021 11:36 PM CDT) pH Arterial 7.42 7.35 - 7.45 pH 02/19/2021 11:42 PM [facility] pO2 Arterial 93 80 - 100 mmHg 02/19/2021 11:42 PM [facility] pCO2 Arterial 41 35 - 45 mmHg 11:42 PM [facility] HCO3 Arterial 27 20 - 30 mmol/l 02/19/2021 11:42 PM [facility] BE Arterial 1.9 -2.0 - 2.0 mmol/L 02/19/2021 11:42 PM [facility] Oxyhemoglobin Arterial 96.2 % 02/19/2021 11:42 PM [facility] Dexoyhemoglobin (HHB) % 1.5 % 02/19/2021 11:42 PM [facility] Methemoglobin 1.0 0.0 - 2.0 % 02/19/2021 11:42 PM [facility] Carboxyhemoglobin 1.4 0.0 - 2.0 % 2020 11:42 PM [facility] O2 Content Arterial 19.5 Interpret within clinical context mg/dL 02/19/2021 11:42 PM CDT [facility] Hemoglobin by COOX 14.4 12.0 - 17.6 g/dL 02/19/2021 11:42 PM CDT [facility] O2 Saturation Arterial 99 90 - 100 % 02/19/2021 11:42 PM T [facility] FI O2 Arterial 50.0 % 02/19/2021 11:42 PM CDT [facility] Blood, arterial ARTERIAL BLOOD SPECIMEN / Unknown Arterial Puncture / Unknown 02/19/2021 11:36 PM CDT 02/19/2021 11:40 PM CDT Narrative [facility] - 02/19/2021 11:42 PM CDT Carboxyhemoglobin Normal Concentration: Non-smokers: 0-2%; Smokers: 0-9%; Toxic: >20% Fredy Felipe MD LAB - BLOOD GASES OR DERABLES Performing Organization Address [facility] de Phone Number [address] [address], [employer] [phone] * PT-INR [facility] (02/19/2021 11:36 PM CDT) PT 14.1 12.1 - 14.8 Seconds 02/19/2021 11:53 PM T [facility] INR 1.1 See Comment 02/19/2021 11:53 PM T [facility] Comment:The suggested therap eutic range for standard coumadin (warfarin) therapy is an INR of 2.0-3.0. For high-risk patients (Mechanical Mitral Valve Prosthesis, etc.), the suggested prophylactic therapeutic range is an INR of 2.5-3.5. Blood BLOOD SPECIMEN / Unknown Venipuncture / Unknown 02/19/2021 11:36 PM CDT 02/19/2021 11:44 PM CDT Fredy Felipe MD LAB - COAGULATION OR DERABLES Performing Organization Address [facility] Co de Phone Number [address] [address], [employer] [phone] * PHOSPHORUS BLOOD (02/19/2021 11:36 PM CDT) Phosphorus 3.8 2.8 - 5.1 mg/dL 02/20/2021 12:08 AM CDT [facility] Blood BLOOD SPECIMEN / Unknown Venipuncture / Unknown 02/19/2021 11:36 PM CDT 02/19/2021 11:41 PM CDT Fredy Felipe MD LAB - CHEMISTRY JOSE ENRIQUE VELA [address] [address], [facility] [phone] * MAGNESIUM BLOOD (02/19/2021 11:36 PM CDT) Magnesium 1.9 1.6 - 2.6 mg/dL 02/20/2021 12:08 AM CDT [facility] Blood BLOOD SPECIMEN / Unknown Venipuncture / Unknown 02/19/2021 11:36 PM CDT 02/19/2021 11:41 PM CDT Fredy Felipe MD LAB - CHEMISTRY JOSE ENRIQUE VELA Performing Organization Address City/[facility]/ZIP Co de Phone Number [address] [address], [facility] [phone] * CALCIUM IONIZED WHOLE BLOOD (02/19/2021 11:36 PM CDT) Calcium Ionized 1.20 mmol/L 02/19/2021 11:43 PM CDT [facility] pH 7.43 7.35 - 7.45 pH 02/19/2021 11:43 PM CDT [facility] Ionized Calcium pH Adjusted 1.21 1.19 - 1.34 mmol/L 02/19/2021 11:43 PM CDT [facility] Blood BLOOD SPECIMEN / Unknown Venipuncture / Unknown 02/19/2021 11:36 PM CDT 02/19/2021 11:40 PM CDT Fredy Felipe MD LAB - CHEMISTRY JOSE ENRIQUE VELA [facility] [address] [place] [address], [facility] [phone] * XR CHEST 1VW PORTABLE (02/19/2021 5:10 PM CDT) Anatomical Region Laterality Modality Chest Radiographic Sera ging 02/20/2021 8:41 AM CDT Impressions 02/20/2021 2:18 PM CDT FINDINGS/IMPRESSION: Lines and tubes: *Endotracheal tube terminates in the midthoracic trachea. *Enteric tube is followed below the diaphragm with the terminus outside field of view. *Right sided apically oriented thoracostomy tube is unchanged in position. *Left subclavian approach central venous catheter terminates in the left brachiocephalic vein/SVC. Low lung volumes with associated bronchovascular crowding. ??Patchy perihilar and lower lobe opacities are slightly improved on the right and unchanged left. Left lower lobe lung atelectasis is reidentified without significant change. A small left pleural effusion with overlying atelectasis is suggested. Small amount of residual subcutaneous emphysema at the thoracostomy insertion site is noted. There is no evidence of pneumothorax. The cardiomediastinal silhouette is normal. Dictated by Rico Sawant DO (residential leasing manager). I, Dr. NAOMY LAZO MD, [facility] have personally reviewed and interpreted this examination/study. This report was electronically signed by NAOMY LAZO MD, CR ??on 02/20/2021 2:18 PM . Narrative 02/20/2021 2:18 PM CDT EXAMINATION: XR CHEST 1VW PORTABLE HISTORY: T14.90XA: Trauma COMPARISON: Comparison is made to chest radiograph dated earlier same day. Procedure Note Naomy Lazo MD - 02/20/2021 EXAMINATION: XR CHEST 1VW PORTABLE HISTORY: T14.90XA: Trauma COMPARISON: Comparison is made to chest radiograph dated earlier sameday. FINDINGS/IMPRESSION: Lines and tubes: *Endotracheal tube terminates in the midthoracic trachea. *Enteric tube is followed below the diaphragm with the terminus outside field of view. *Right sided apically oriented thoracostomy tube is unchanged inposition. *Left subclavian approach central venous catheter terminates in the left brachiocephalic vein/SVC. Low lung volumes with associated bronchovascular crowding. Patchy perihilar and lower lobe opacities are slightly improved on the rightand unchanged left. Left lower lobe lung atelectasis is reidentified without significant change. A small left pleural effusion with overlying atelectasis is suggested. Small amount of residual subcutaneousemphysema at the thoracostomy insertion site is noted. There is no evidence of pneumothorax. The cardiomediastinal silhouette is normal. Dictated by Rico Sawant DO (residential leasing manager). I, Dr. NAOMY LAZO MD, [facility] have personally reviewedand interpreted this examination/study. This report was electronically signed by NAOMY LAZO MD, [facility] on 02/20/2021 2:18 PM . Fredy Felipe MD DIAGNOSTIC IMAGING O [...] on 02/19/2021 at 19:34. Reviewed with Dr. Carrion Dictated by Bety Rose MD (residential leasing manager). This report was approved ??by Bety Rose ?? on 02/20/2021 11:19 AM . I, Dr. JASWINDER CARRION have personally reviewed and interpreted this examination/study. This report was electronically signed by JASWINDER CARRION ??on 02/20/2021 11:38 AM . Narrative 02/20/2021 [...] cervical spine appear normal. Procedure Note Jaswinder Carrion MD - 02/20/2021 MRI BRAIN WO CONTRAST [...] on 02/19/2021 at 19:34. Reviewed with Dr. Carrion Dictated by Bety Rose MD (residential leasing manager). This report was approved by Bety Rose on 02/20/2021 11:19 AM . I, Dr. JASWINDER CARRION have personally reviewed and interpreted this examination/study. This report was electronically signed by JASWINDER CARRION on02/20/2021 11:38 AM . Fredy Felipe MD MR ORDERABLES * TYPE + SCREEN PANEL (02/19/2021 7:27 AM CDT) Antibody Screen NEG 8:50 AM CDT [facility] ABO Rh O POS 02/19/2021 8:50 AM CDT [facility] Blood Bank BLOOD SPECIMEN / Unknown Venipuncture / Unknown 02/19/2021 7:27 AM CDT 02/19/2021 7:34 AM CDT Fredy Felipe MD LAB - BLOOD BANK ORD ERABLES [facility] [address] [place] [address], [facility] [phone] * XR CHEST 1VW PORTABLE (02/19/2021 5:26 AM CDT) Anatomical Region Laterality Modality Chest Radiographic Sera ging 02/19/2021 3:21 PM CDT Impressions 02/19/2021 3:43 PM CDT FINDINGS/IMPRESSION: Lines and tubes: *Endotracheal tube terminates in the midthoracic trachea. *Enteric tube is followed below the diaphragm with the terminus outside field of view. *Right sided apically oriented thoracostomy tube is unchanged in position. Low lung volumes with associated bronchovascular crowding. ??Patchy perihilar opacities are slightly improved on the right and unchanged left. A small left pleural effusion with overlying atelectasis is suggested. Small amount of residual subcutaneous emphysema at the thoracostomy insertion site is noted. There is no evidence of pneumothorax. The cardiomediastinal silhouette is normal. Dictated by Rico Sawant DO (residential leasing manager). I, Dr. OSWALDO CLEMONS have personally reviewed and interpreted this examination/study. This report was electronically signed by OSWALDO CLEMONS ??on 02/19/2021 3:43 PM . Narrative 02/19/2021 3:43 PM CDT EXAMINATION: XR CHEST 1VW PORTABLE HISTORY: T14.90XA: Trauma COMPARISON: Comparison is made with chest radiograph dated 02/18/2021. Procedure Note Oswaldo Clemons MD - 02/19/2021 EXAMINATION: XR CHEST 1VW PORTABLE HISTORY: T14.90XA: Trauma COMPARISON: Comparison is made with chest radiograph dated 02/18/2021. FINDINGS/IMPRESSION: Lines and tubes: *Endotracheal tube terminates in the midthoracic trachea. *Enteric tube is followed below the diaphragm with the terminus outside field of view. *Right sided apically oriented thoracostomy tube is unchanged inposition. Low lung volumes with associated bronchovascular crowding. Patchy perihilar opacities are slightly improved on the right and unchangedleft. A small left pleural effusion with overlying atelectasis is suggested. Small amount of residual subcutaneous emphysema at the thoracostomy insertion site is noted. There is no evidence of pneumothorax. The cardiomediastinal silhouette is normal. Dictated by Rico Sawant DO (residential leasing manager). I, Dr. OSWALDO CLEMONS have personally reviewed and interpreted this examination/study. This report was electronically signed by OSWALDO CLEMONS on 02/19/2021 3:43PM . Fredy Felipe MD DIAGNOSTIC IMAGING O RDERABLES * (ABNORMAL) CBC W AUTO DIFFERENTIAL (02/18/2021 11:03 PM CDT) WBC 11.9(H) 3.5 - 10.5 10? 3 /uL 02/18/2021 11:19 PM [facility] RBC 4.74 4.30 - 5.70 10? 6 /uL 02/18/2021 11:19 PM [facility] Hemoglobin 13.1 12.0 - 17.6 g/dL 02/18/2021 11:19 PM [facility] Hematocrit 40.4 35.2 - 51.7 % 02/18/2021 11:19 PM [facility] MCV 85.2 80.7 - 98.3 fL 02/18/2021 11:19 PM [facility] MCH 27.6 26.7 - 34.0 pg 02/18/2021 11:19 PM [facility] MCHC 32.4 30.8 - 35.9 g/dL 02/18/2021 11:19 PM [facility] Platelet Count 325 150 - 400 10? 3 /uL 02/18/2021 11:19 PM [facility] RDW-SD 43.3 36.0 - 50.0 fL 02/18/2021 11:19 PM [facility] RDW-CV 14.0 11.2 - 14.8 % 02/18/2021 11:19 PM [facility] MPV 9.2(L) 9.4 - 12.9 fL 02/18/2021 11:19 PM [facility] nRBC Absolute 0.00 0 10? 3 /uL 02/18/2021 11:19 PM [facility] nRBC Auto 0.0 0 /100 WBC 02/18/2021 11:19 PM [facility] Neutrophils % 79.2(H) 35.0 - 70.0 % 02/18/2021 11:19 PM [facility] Lymphocytes % 10.3(L) 20.0 - 43.0 % 02/18/2021 11:19 PM [facility] Monocytes % 9.5 5.0 - 13.0 % 02/18/2021 11:19 PM [facility] Eosinophils % 0.3 0.0 - 6.0 % 02/18/2021 11:19 PM [facility] Basophil % 0.2 0.0 - 2.0 % 02/18/2021 11:19 PM [facility] Neutrophils Absolute 9.4(H) 1.6 - 7.0 10? 3 /uL 02/18/2021 11:19 PM [facility] Lymphocyte Absolute 1.2 1.1 - 3.9 10? 3 /uL 02/18/2021 11:19 PM [facility] Monocytes Absolute 1.13(H) 0.26 - 1.07 10? 3 /uL 02/18/2021 11:19 PM [facility] Eosinophils Absolute 0.04 0.00 - 0.47 10? 3 /uL 02/18/2021 11:19 PM [facility] Basophils Absolute 0.02 0.00 - 0.08 10? 3 /uL 02/18/2021 11:19 PM [facility] Immature Granulocytes % 0.5 0.0 - 1.0 % 02/18/2021 11:19 PM [facility] Immature Granulocytes Absolute 0.06 02/18/2021 11:19 PM [facility] Blood BLOOD SPECIMEN / Unknown Venipuncture / Unknown 02/18/2021 11:03 PM CDT 02/18/2021 11:08 PM CDT Fredy Felipe MD LAB - HEMATOLOGY ORD ERABLES [facility] [address] [place] [address], [facility] [phone] * (ABNORMAL) BASIC METABOLIC PANEL (CALCIUM TOTAL) (02/18/2021 11:03 PM CDT) Pathologist [facility] BUN 9 7 - 26 mg/dL 02/18/2021 11:32 PM [facility] Creatinine 0.75 0.71 - 1.16 mg/dL 02/18/2021 11:32 PM [facility] Sodium 142 136 - 145 mmol/L 02/18/2021 11:32 PM [facility] Potassium 3.9 3.5 - 4.5 mmol/L 02/18/2021 11:32 PM [facility] Chloride 108(H) 98 - 107 mmol/L 02/18/2021 11:32 PM [facility] CO2 25 22 - 29 mmol/L 02/18/2021 11:32 PM [facility] Glucose 92 70 - 115 mg/dL 02/18/2021 11:32 PM [facility] Calcium 8.4 8.4 - 10.2 mg/dL 02/18/2021 11:32 PM [facility] Anion Gap 13 8 - 18 02/18/2021 11:32 PM [facility] BUN/Creatinine Ratio 12 7 - 23 02/18/2021 11:32 PM [facility] Osmolality Calculated 292 270 - 300 mOsm/kg 02/18/2021 11:32 PM [facility] eGFR by CKD-EPI >90 >=90 mL/min/1.7 3 m2 02/18/2021 11:32 PM [facility] Blood BLOOD SPECIMEN / Unknown Venipuncture / Unknown 02/18/2021 11:03 PM CDT 02/18/2021 11:08 PM T Fredy Felipe MD LAB - CHEMISTRY JOSE ENRIQUE VELA [facility] [address] [place] [address], [facility] [phone] * (ABNORMAL) BLOOD GASES ART + COOX PANEL (02/18/2021 11:03 PM CDT) pH Arterial 7.46(H) 7.35 - 7.45 pH 02/18/2021 11:11 PM [facility] pO2 Arterial 145(H) 80 - 100 mmHg 02/18/2021 11:11 PM [facility] pCO2 Arterial 37 35 - 45 mmHg 11:11 PM [facility] HCO3 Arterial 26 20 - 30 mmol/l 02/18/2021 11:11 PM [facility] BE Arterial 2.5(H) -2.0 - 2.0 mmol/L 02/18/2021 11:11 PM [facility] Oxyhemoglobin Arterial 97.5 % 02/18/2021 11:11 PM [facility] Dexoyhemoglobin (HHB) % 0.1 % 02/18/2021 11:11 PM [facility] Methemoglobin <0.8 0.0 - 2.0 % 02/18/2021 11:11 PM [facility] Carboxyhemoglobin 1.7 0.0 - 2.0 % 2020 11:11 PM [facility] O2 Content Arterial 18.8 Interpret within clinical context mg/dL 02/18/2021 11:11 PM [facility] Hemoglobin by COOX 13.5 12.0 - 17.6 g/dL 02/18/2021 11:11 PM [facility] O2 Saturation Arterial 100 90 - 100 % 02/18/2021 11:11 PM [facility] FI O2 Arterial 40.0 % 02/18/2021 11:11 PM [facility] Blood, arterial ARTERIAL BLOOD SPECIMEN / Unknown Arterial Puncture / Unknown 02/18/2021 11:03 PM T 02/18/2021 11:08 PM [facility] - 02/18/2021 11:11 PM [facility] Carboxyhemoglobin Normal Concentration: Non-smokers: 0-2%; Smokers: 0-9%; Toxic: >20% Fredy Felipe MD LAB - BLOOD GASES OR DERABLES [facility] [address] [place] [address], [facility] [phone] * PT-INR [facility] (02/18/2021 11:03 PM CDT) PT 14.1 12.1 - 14.8 Seconds 02/18/2021 11:23 PM CDT [facility] INR 1.1 See Comment 02/18/2021 11:23 PM CDT [facility] Comment:The suggested therap eutic range for standard coumadin (warfarin) therapy is an INR of 2.0-3.0. For high-risk patients (Mechanical Mitral Valve Prosthesis, etc.), the suggested prophylactic therapeutic range is an INR of 2.5-3.5. Blood BLOOD SPECIMEN / Unknown Venipuncture / Unknown 02/18/2021 11:03 PM CDT 02/18/2021 11:08 PM CDT Fredy Felipe MD LAB - COAGULATION OR DERABLES Performing Organization Address City/[facility]/ZIP Co de Phone Number [address] [address], [facility] [phone] * (ABNORMAL) PHOSPHORUS BLOOD (02/18/2021 11:03 PM CDT) Phosphorus 2.3(L) 2.8 - 5.1 mg/dL 02/18/2021 11:33 PM CDT [facility] Blood BLOOD SPECIMEN / Unknown Venipuncture / Unknown 02/18/2021 11:03 PM CDT 02/18/2021 11:08 PM CDT Fredy Felipe MD LAB - CHEMISTRY ORDE RABLES [address] [address], [place] [phone] * MAGNESIUM BLOOD (02/18/2021 11:03 PM CDT) Magnesium 1.7 1.6 - 2.6 mg/dL 02/18/2021 11:32 PM CDT [facility] Blood BLOOD SPECIMEN / Unknown Venipuncture / Unknown 02/18/2021 11:03 PM CDT 02/18/2021 11:08 PM CDT Fredy Felipe MD LAB - CHEMISTRY JOSE ENRIQUE VELA Performing Organization Address City/[facility]/ZIP Co de Phone Number [address] [address], [facility] [phone] * (ABNORMAL) CALCIUM IONIZED WHOLE BLOOD (02/18/2021 11:03 PM CDT) Calcium Ionized 1.15 mmol/L 02/18/2021 11:10 PM CDT [facility] pH 7.45 7.35 - 7.45 pH 02/18/2021 11:10 PM CDT [facility] Ionized Calcium pH Adjusted 1.17(L) 1.19 - 1.34 mmol/L 02/18/2021 11:10 PM CDT [facility] Blood BLOOD SPECIMEN / Unknown Venipuncture / Unknown 02/18/2021 11:03 PM CDT 02/18/2021 11:08 PM CDT Fredy Felipe MD LAB - CHEMISTRY JOSE ENRIQUE VELA Performing Organization Address [facility]/ZIP Co de Phone Number [address] [address], [facility] [phone] * XR CHEST 1VW PORTABLE (02/18/2021 5:25 AM CDT) Anatomical Region Laterality Modality Chest Radiographic Sera ging 02/18/2021 2:01 PM CDT Impressions 02/18/2021 4:01 PM CDT IMPRESSION: 1.Support devices as above. 2.Bilateral pulmonary opacities redemonstrated. Report dictated by Simone Alexander MD, PhD (residential leasing manager). I, Dr. CHOCO JIN MD have personally reviewed and interpreted this examination/study. This report was electronically signed by CHOCO JIN MD ??on 02/18/2021 4:01 PM . Narrative 02/18/2021 4:01 PM CDT EXAMINATION: XR CHEST 1VW PORTABLE, 02/18/2021 5:25 AM HISTORY: T14.90XA: Trauma COMPARISON: 02/17/2021, AP CXR portable one view. FINDINGS: *Endotracheal tube terminates in the mid thoracic trachea, 4.5 cm above the maya. *An NG tube extends to the stomach. *Right thoracostomy tube, apically oriented, stable position. Lung volumes show increased expansion compared to prior study. Redemonstration of perihilar patchy opacities, right greater than left, decreased from prior study. The left lung demonstrates increased expansion compared to prior study, but persistent retrocardiac and left diaphragm opacities favored to represent left lower lung zone atelectasis. On this supine study, there are no pleural effusions nor pneumothorax. The cardiomediastinal silhouette remains partially obscured, but stable in configuration. Redemonstration of subcutaneous emphysema along the right anterior lateral inferior chest wall, stable from prior study. Procedure Note Choco Jin MD - 02/18/2021 EXAMINATION: XR CHEST 1VW PORTABLE, 02/18/2021 5:25 AM HISTORY: T14.90XA: Trauma COMPARISON: 02/17/2021, AP CXR portable one view. FINDINGS: *Endotracheal tube terminates in the mid thoracic trachea, 4.5 cm above the maya. *An NG tube extends to the stomach. *Right thoracostomy tube, apically oriented, stable position. Lung volumes show increased expansion compared to prior study. Redemonstration of perihilar patchy opacities, right greater than left, decreased from prior study. The left lung demonstrates increasedexpansion compared to prior study, but persistent retrocardiac and left diaphragm opacities favored to represent left lower lung zone atelectasis. On this supine study, there are no pleural effusions nor pneumothorax. The cardiomediastinal silhouette remains partially obscured, but stable in configuration. Redemonstration of subcutaneous emphysema along the right anterior lateral inferior chest wall, stable from prior study. IMPRESSION: 1.Support devices as above. 2.Bilateral pulmonary opacities redemonstrated. Report dictated by Simone Alexander MD, PhD (residential leasing manager). I, Dr. CHOCO JIN MD have personally reviewed and interpreted this examination/study. This report was electronically signed by CHOCO JIN MD on02/18/2021 4:01 PM . Fredy Felipe MD DIAGNOSTIC IMAGING O RDERABLES * (ABNORMAL) CBC W AUTO DIFFERENTIAL (02/18/2021 12:04 AM [facility]) WBC 16.3(H) 3.5 - 10.5 10? 3 /uL 02/18/2021 12:16 AM [facility] RBC 4.69 4.30 - 5.70 10? 6 /uL 02/18/2021 12:16 AM [facility] Hemoglobin 13.1 12.0 - 17.6 g/dL 02/18/2021 12:16 AM [facility] Hematocrit 40.9 35.2 - 51.7 % 02/18/2021 12:16 AM [facility] MCV 87.2 80.7 - 98.3 fL 02/18/2021 12:16 AM [facility] MCH 27.9 26.7 - 34.0 pg 02/18/2021 12:16 AM [facility] MCHC 32.0 30.8 - 35.9 g/dL 02/18/2021 12:16 AM [facility] Platelet Count 292 150 - 400 10? 3 /uL 02/18/2021 12:16 AM [facility] RDW-SD 45.6 36.0 - 50.0 fL 02/18/2021 12:16 AM [facility] RDW-CV 14.2 11.2 - 14.8 % 02/18/2021 12:16 AM [facility] MPV 9.4 9.4 - 12.9 fL 02/18/2021 12:16 AM [facility] nRBC Absolute 0.00 0 10? 3 /uL 02/18/2021 12:16 AM [facility] nRBC Auto 0.0 0 /100 WBC 02/18/2021 12:16 AM [facility] Neutrophils % 85.7(H) 35.0 - 70.0 % 02/18/2021 12:16 AM [facility] Lymphocytes % 6.2(L) 20.0 - 43.0 % 02/18/2021 12:16 AM [facility] Monocytes % 7.4 5.0 - 13.0 % 02/18/2021 12:16 AM [facility] Eosinophils % 0.0 0.0 - 6.0 % 02/18/2021 12:16 AM [facility] Basophil % 0.2 0.0 - 2.0 % 02/18/2021 12:16 AM [facility] Neutrophils Absolute 13.9(H) 1.6 - 7.0 10? 3 /uL 02/18/2021 12:16 AM [facility] Lymphocyte Absolute 1.0(L) 1.1 - 3.9 10? 3 /uL 02/18/2021 12:16 AM [facility] Monocytes Absolute 1.21(H) 0.26 - 1.07 10? 3 /uL 02/18/2021 12:16 AM [facility] Eosinophils Absolute 0.00 0.00 - 0.47 10? 3 /uL 02/18/2021 12:16 AM [facility] Basophils Absolute 0.03 0.00 - 0.08 10? 3 /uL 02/18/2021 12:16 AM [facility] Immature Granulocytes % 0.5 0.0 - 1.0 % 02/18/2021 12:16 AM [facility] Immature Granulocytes Absolute 0.08 02/18/2021 12:16 AM [facility] Blood BLOOD SPECIMEN / Unknown Venipuncture / Unknown 02/18/2021 12:04 AM CDT 02/18/2021 12:08 AM T Fredy Felipe MD LAB - HEMATOLOGY ORD ERABLES [facility] [address] [place] [address], [facility] [phone] * BASIC METABOLIC PANEL (CALCIUM TOTAL) (02/18/2021 12:04 AM T) BUN 11 7 - 26 mg/dL 02/18/2021 12:32 AM [facility] Creatinine 0.83 0.71 - 1.16 mg/dL 02/18/2021 12:32 AM [facility] Sodium 140 136 - 145 mmol/L 02/18/2021 12:32 AM [facility] Potassium 4.2 3.5 - 4.5 mmol/L 02/18/2021 12:32 AM [facility] Chloride 106 98 - 107 mmol/L 02/18/2021 12:32 AM [facility] CO2 24 22 - 29 mmol/L 02/18/2021 12:32 AM [facility] Glucose 102 70 - 115 mg/dL 02/18/2021 12:32 AM [facility] Calcium 8.6 8.4 - 10.2 mg/dL 02/18/2021 12:32 AM [facility] Anion Gap 14 8 - 18 02/18/2021 12:32 AM [facility] BUN/Creatinine Ratio 13 7 - 23 02/18/2021 12:32 AM [facility] Osmolality Calculated 290 270 - 300 mOsm/kg 02/18/2021 12:32 AM [facility] eGFR by CKD-EPI >90 >=90 mL/min/1.7 3 m2 02/18/2021 12:32 AM [facility] Blood BLOOD SPECIMEN / Unknown Venipuncture / Unknown 02/18/2021 12:04 AM CDT 02/18/2021 12:08 AM T Fredy Felipe MD LAB - CHEMISTRY JOSE ENRIQUE VELA [facility] Organization Address City/State/ZIP Co de Phone Number [facility] [address] [place] [address], [facility] [phone] * (ABNORMAL) BLOOD GASES ART + COOX PANEL (02/18/2021 12:04 AM T) pH Arterial 7.40 7.35 - 7.45 pH 02/18/2021 12:11 AM [facility] pO2 Arterial 126(H) 80 - 100 mmHg 02/18/2021 12:11 AM [facility] pCO2 Arterial 42 35 - 45 mmHg 12:11 AM [facility] HCO3 Arterial 26 20 - 30 mmol/l 02/18/2021 12:11 AM [facility] BE Arterial 1.0 -2.0 - 2.0 mmol/L 02/18/2021 12:11 AM [facility] Oxyhemoglobin Arterial 97.0 % 02/18/2021 12:11 AM [facility] Dexoyhemoglobin (HHB) % 0.7 % 02/18/2021 12:11 AM [facility] Methemoglobin 1.0 0.0 - 2.0 % 02/18/2021 12:11 AM [facility] Carboxyhemoglobin 1.3 0.0 - 2.0 % 2020 12:11 AM [facility] O2 Content Arterial 18.7 Interpret within clinical context mg/dL 02/18/2021 12:11 AM [facility] Hemoglobin by COOX 13.6 12.0 - 17.6 g/dL 02/18/2021 12:11 AM [facility] O2 Saturation Arterial 99 90 - 100 % 02/18/2021 12:11 AM [facility] FI O2 Arterial 60.0 % 02/18/2021 12:11 AM [facility] Blood, arterial ARTERIAL BLOOD SPECIMEN / Unknown Arterial Puncture / Unknown 02/18/2021 12:04 AM [facility] 02/18/2021 12:06 AM [facility] - 02/18/2021 12:11 AM [facility] Carboxyhemoglobin Normal Concentration: Non-smokers: 0-2%; Smokers: 0-9%; Toxic: >20% Fredy Felipe MD LAB - BLOOD GASES OR DERABLES [facility] [address] [place] [address], [facility] [phone] * PT-INR [facility] (02/18/2021 12:04 AM [facility]) PT 14.3 12.1 - 14.8 Seconds 02/18/2021 12:25 AM [facility] INR 1.1 See Comment 02/18/2021 12:25 AM [facility] Comment:The suggested therap eutic range for standard coumadin (warfarin) therapy is an INR of 2.0-3.0. For high-risk patients (Mechanical Mitral Valve Prosthesis, etc.), the suggested prophylactic therapeutic range is an INR of 2.5-3.5. Blood BLOOD SPECIMEN / Unknown Venipuncture / Unknown 02/18/2021 12:04 AM CDT 02/18/2021 12:07 AM CDT Fredy Felipe MD LAB - COAGULATION OR DERABLES Performing Organization Address [facility]/ZIP Co de Phone Number [address] [address], [facility] [phone] * PHOSPHORUS BLOOD (02/18/2021 12:04 AM CDT) Phosphorus 3.4 2.8 - 5.1 mg/dL 02/18/2021 12:32 AM CDT [facility] Blood BLOOD SPECIMEN / Unknown Venipuncture / Unknown 02/18/2021 12:04 AM CDT 02/18/2021 12:08 AM CDT Fredy Felipe MD LAB - CHEMISTRY JOSE ENRIQUE VELA Performing Organization Address [facility] Co de Phone Number [address] [address], [place] [phone] * MAGNESIUM BLOOD (02/18/2021 12:04 AM CDT) Magnesium 2.0 1.6 - 2.6 mg/dL 02/18/2021 12:32 AM CDT [facility] Blood BLOOD SPECIMEN / Unknown Venipuncture / Unknown 02/18/2021 12:04 AM CDT 02/18/2021 12:08 AM CDT Fredy Felipe MD LAB - CHEMISTRY JOSE ENRIQUE VELA Performing Organization Address [facility]/ZIP Co de Phone Number [address] [address], [place] [phone] * (ABNORMAL) CALCIUM IONIZED WHOLE BLOOD (02/18/2021 12:04 AM CDT) Calcium Ionized 1.14 mmol/L 02/18/2021 12:12 AM CDT [facility] pH 7.41 7.35 - 7.45 pH 02/18/2021 12:12 AM CDT [facility] Ionized Calcium pH Adjusted 1.14(L) 1.19 - 1.34 mmol/L 02/18/2021 12:12 AM CDT [facility] Blood BLOOD SPECIMEN / Unknown Venipuncture / Unknown 02/18/2021 12:04 AM CDT 02/18/2021 12:06 AM CDT Fredy Felipe MD LAB - CHEMISTRY JOSE ENRIQUE VELA [facility] [address] [place] [address], [facility] [phone] * XR CHEST 1VW PORTABLE (02/17/2021 10:00 PM CDT) Anatomical Region Laterality Modality Chest Radiographic Sera ging 02/18/2021 9:45 AM CDT Impressions 02/18/2021 9:58 AM CDT IMPRESSION: 1.Support devices as above. 2.No pneumothorax. 3.Middle and lower lung zone atelectasis. Report dictated by Simone Alexander MD, PhD (residential leasing manager). I, Dr. NENA CLEMENTE have personally reviewed and interpreted this examination/study. This report was electronically signed by NENA CLEMENTE ??on 02/18/2021 9:58 AM . Narrative 02/18/2021 9:58 AM CDT EXAMINATION: XR CHEST 1VW PORTABLE, 02/17/2021 10:00 PM HISTORY: T14.90XA: Trauma COMPARISON: 02/17/2021, AP CXR portable one view. FINDINGS: *Endotracheal tube terminates in the mid thoracic trachea, 5.0 cm above the maya. *Enteric tube traverses the stomach, separability visualizes in the projected gastric lumen. Terminus not visualized. *Right thoracostomy tube, apically oriented. *Interval placement of right subclavian CVC, terminates in the left and left brachiocephalic vein. Resolution of previously seen moderate pneumothorax. Lung volumes are less expanded compared to prior study. Redemonstration of perihilar patchy opacifications, right greater than left, minimally improved from prior study, likely representing compressive atelectasis secondary to pneumothorax. There are new bilateral lower lung zone opacities, likely representing atelectasis. Pleural effusions cannot be fluid on this semierect study. There is no pneumothorax. The cardiomediastinal silhouette has increased obscuration compared to prior study, but stable in configuration. The bony thorax is intact. Redemonstration of subcutaneous emphysema along the right anterolateral and inferior chest wall. Procedure Note Nena Clemente, - 02/18/2021 EXAMINATION: XR CHEST 1VW PORTABLE, 02/17/2021 10:00 PM HISTORY: T14.90XA: Trauma COMPARISON: 02/17/2021, AP CXR portable one view. FINDINGS: *Endotracheal tube terminates in the mid thoracic trachea, 5.0 cm above the maya. *Enteric tube traverses the stomach, separability visualizes in the projected gastric lumen. Terminus not visualized. *Right thoracostomy tube, apically oriented. *Interval placement of right subclavian CVC, terminates in the left and left brachiocephalic vein. Resolution of previously seen moderate pneumothorax. Lung volumes areless expanded compared to prior study. Redemonstration of perihilar patchy opacifications, right greater than left, minimally improved from prior study, likely representing compressive atelectasis secondary to pneumothorax. There are new bilateral lower lung zone opacities, likely representing atelectasis. Pleural effusions cannot be fluid on this semierect study. There is no pneumothorax. The cardiomediastinal silhouette has increased obscuration compared to prior study, but stable in configuration. The bony thorax is intact. Redemonstration of subcutaneous emphysema along the right anterolateral and inferior chest wall. IMPRESSION: 1.Support devices as above. 2.No pneumothorax. 3.Middle and lower lung zone atelectasis. Report dictated by Simone Alexander MD, PhD (residential leasing manager). I, Dr. NENA CLEMENTE have personally reviewed and interpreted this examination/study. This report was electronically signed by NENA CLEMENTE on 02/18/2021 9:58 AM . Fredy Felipe MD DIAGNOSTIC IMAGING O RDERABLES * XR CHEST 1VW PORTABLE (02/17/2021 4:56 AM CDT) Anatomical Region Laterality Modality Chest Radiographic Sera ging 02/17/2021 10:3 2 AM CDT Impressions 02/17/2021 2:39 PM CDT FINDINGS/IMPRESSION: Lines and tubes: *Endotracheal tube terminates in the midthoracic trachea. *An enteric tube is followed below the diaphragm with the terminus outside the [id number]. *Bilateral apically oriented thoracostomy tubes are reidentified. The right tube tip is now at an acute angle and the left tube is unchanged in position. *Left subclavian approach central line terminates in the left brachiocephalic vein Right sided pneumothorax is now moderately sized and has enlarged from prior. Small amount of subcutaneous emphysema is noted along the right chest wall and similar compared to prior. Patchy opacities within the right perihilar region likely represent atelectasis from partially collapsed lung. Left basilar atelectasis is unchanged, and small layering pleural effusion may be contributing to this finding. The cardiomediastinal silhouette is normal. Critical results were discussed with trauma ICU resident Dr. Fredy Vázquez at 10:38 AM on 02/17/2021. Dictated by Rico Sawant DO (residential leasing manager). I, Dr. OSWALDO CLEMONS have personally reviewed and interpreted this examination/study. This report was electronically signed by OSWALDO CLEMONS ??on 02/17/2021 2:39 PM . Narrative 02/17/2021 2:39 PM CDT EXAMINATION: XR CHEST 1VW PORTABLE HISTORY: T14.90XA: Trauma COMPARISON: Comparison is made with chest radiograph dated 02/16/2021. Procedure Note Oswaldo Clemons MD - 02/17/2021 EXAMINATION: XR CHEST 1VW PORTABLE HISTORY: T14.90XA: Trauma COMPARISON: Comparison is made with chest radiograph dated 02/16/2021. FINDINGS/IMPRESSION: Lines and tubes: *Endotracheal tube terminates in the midthoracic trachea. *An enteric tube is followed below the diaphragm with the terminusoutside the [id number]. *Bilateral apically oriented thoracostomy tubes are reidentified. The right tube tip is now at an acute angle and the left tube is unchangedin position. *Left subclavian approach central line terminates in the left brachiocephalic vein Right sided pneumothorax is now moderately sized and has enlarged from prior. Small amount of subcutaneous emphysema is noted along the right chest wall and similar compared to prior. Patchy opacities within the right perihilar region likely represent atelectasis from partially collapsed lung. Left basilar atelectasis is unchanged, and smalllayering pleural effusion may be contributing to this finding. The cardiomediastinal silhouette is normal. Critical results were discussed with trauma ICU resident Dr. Fredy Vázquez at 10:38 AM on 02/17/2021. Dictated by Rico Sawant DO (residential leasing manager). I, Dr. OSWALDO CLEMONS have personally reviewed and interpreted this examination/study. This report was electronically signed by OSWALDO CLEMONS on 02/17/2021 2:39PM . Fredy Felipe MD DIAGNOSTIC IMAGING O RDERABLES * (ABNORMAL) CBC W AUTO DIFFERENTIAL (02/17/2021 12:13 AM CDT) WBC 21.4(H) 3.5 - 10.5 10? 3 /uL 02/17/2021 12:26 AM [facility] RBC 4.87 4.30 - 5.70 10? 6 /uL 02/17/2021 12:26 AM [facility] Hemoglobin 13.5 12.0 - 17.6 g/dL 02/17/2021 12:26 AM [facility] Hematocrit 41.8 35.2 - 51.7 % 02/17/2021 12:26 AM [facility] MCV 85.8 80.7 - 98.3 fL 02/17/2021 12:26 AM [facility] MCH 27.7 26.7 - 34.0 pg 02/17/2021 12:26 AM [facility] MCHC 32.3 30.8 - 35.9 g/dL 02/17/2021 12:26 AM [facility] Platelet Count 300 150 - 400 10? 3 /uL 02/17/2021 12:26 AM [facility] RDW-SD 45.7 36.0 - 50.0 fL 02/17/2021 12:26 AM [facility] RDW-CV 14.5 11.2 - 14.8 % 02/17/2021 12:26 AM [facility] MPV 9.0(L) 9.4 - 12.9 fL 02/17/2021 12:26 AM [facility] nRBC Absolute 0.00 0 10? 3 /uL 02/17/2021 12:26 AM [facility] nRBC Auto 0.0 0 /100 WBC 02/17/2021 12:26 AM [facility] Neutrophils % 88.2(H) 35.0 - 70.0 % 02/17/2021 12:26 AM [facility] Lymphocytes % 5.1(L) 20.0 - 43.0 % 02/17/2021 12:26 AM [facility] Monocytes % 6.0 5.0 - 13.0 % 02/17/2021 12:26 AM [facility] Eosinophils % 0.0 0.0 - 6.0 % 02/17/2021 12:26 AM [facility] Basophil % 0.1 0.0 - 2.0 % 02/17/2021 12:26 AM [facility] Neutrophils Absolute 18.9(H) 1.6 - 7.0 10? 3 /uL 02/17/2021 12:26 AM [facility] Lymphocyte Absolute 1.1 1.1 - 3.9 10? 3 /uL 02/17/2021 12:26 AM [facility] Monocytes Absolute 1.28(H) 0.26 - 1.07 10? 3 /uL 02/17/2021 12:26 AM [facility] Eosinophils Absolute 0.00 0.00 - 0.47 10? 3 /uL 02/17/2021 12:26 AM [facility] Basophils Absolute 0.02 0.00 - 0.08 10? 3 /uL 02/17/2021 12:26 AM CDT [facility] Immature Granulocytes % 0.6 0.0 - 1.0 % 02/17/2021 12:26 AM CDT [facility] Immature Granulocytes Absolute 0.12 02/17/2021 12:26 AM CDT [facility] Blood BLOOD SPECIMEN / Unknown Venipuncture / Unknown 02/17/2021 12:13 AM CDT 02/17/2021 12:19 AM CDT Fredy Felipe MD LAB - HEMATOLOGY ORD ERABLES [facility] [address] [place] [address], [facility] [phone] * (ABNORMAL) PT-INR [facility] (02/17/2021 12:13 AM CDT) PT 14.9(H) 12.1 - 14.8 Seconds 02/17/2021 12:33 AM CDT [facility] INR 1.2 See Comment 02/17/2021 12:33 AM T [facility] Comment:The suggested therap eutic range for standard coumadin (warfarin) therapy is an INR of 2.0-3.0. For high-risk patients (Mechanical Mitral Valve Prosthesis, etc.), the suggested prophylactic therapeutic range is an INR of 2.5-3.5. Blood BLOOD SPECIMEN / Unknown Venipuncture / Unknown 02/17/2021 12:13 AM CDT 02/17/2021 12:25 AM CDT Fredy Felipe MD LAB - COAGULATION OR DERABLES [facility] [address] [place] [phone], [facility] [phone] * (ABNORMAL) BASIC METABOLIC PANEL (CALCIUM TOTAL) (02/17/2021 12:12 AM CDT) BUN 9 7 - 26 mg/dL 02/17/2021 12:43 AM CDT [facility] Creatinine 0.82 0.71 - 1.16 mg/dL 02/17/2021 12:43 AM [facility] Sodium 140 136 - 145 mmol/L 02/17/2021 12:43 AM [facility] Potassium 4.1 3.5 - 4.5 mmol/L 02/17/2021 12:43 AM [facility] Chloride 105 98 - 107 mmol/L 02/17/2021 12:43 AM [facility] CO2 27 22 - 29 mmol/L 02/17/2021 12:43 AM [facility] Glucose 118(H) 70 - 115 mg/dL 02/17/2021 12:43 AM [facility] Calcium 9.1 8.4 - 10.2 mg/dL 02/17/2021 12:43 AM [facility] Anion Gap 12 8 - 18 02/17/2021 12:43 AM [facility] BUN/Creatinine Ratio 11 7 - 23 02/17/2021 12:43 AM [facility] Osmolality Calculated 290 270 - 300 mOsm/kg 02/17/2021 12:43 AM [facility] eGFR by CKD-EPI >90 >=90 mL/min/1.7 3 m2 02/17/2021 12:43 AM [facility] Blood BLOOD SPECIMEN / Unknown Venipuncture / Unknown 02/17/2021 12:12 AM CDT 02/17/2021 12:19 AM CDT Fredy Felipe MD LAB - CHEMISTRY JOSE ENRIQUE [facility] Organization Address City/State/[facility] Co de Phone Number [address] [address], [facility] [phone] * PHOSPHORUS BLOOD (02/17/2021 12:12 AM CDT) Phosphorus 3.5 2.8 - 5.1 mg/dL 02/17/2021 12:43 AM [facility] Blood BLOOD SPECIMEN / Unknown Venipuncture / Unknown 02/17/2021 12:12 AM CDT 02/17/2021 12:19 AM CDT Fredy Felipe MD LAB - CHEMISTRY JOSE ENRIQUE VELA [address] [address], [facility] [phone] * MAGNESIUM BLOOD (02/17/2021 12:12 AM CDT) Magnesium 1.9 1.6 - 2.6 mg/dL 02/17/2021 12:43 AM CDT [facility] Blood BLOOD SPECIMEN / Unknown Venipuncture / Unknown 02/17/2021 12:12 AM CDT 02/17/2021 12:19 AM CDT Fredy Felipe MD LAB - CHEMISTRY JOSE ENRIQUE VELA Performing Organization Address City/[facility]/ZIP Co de Phone Number [address] [address], [facility] [phone] * CALCIUM IONIZED WHOLE BLOOD (02/17/2021 12:12 AM CDT) Pathologist [facility] Calcium Ionized 1.18 mmol/L 02/17/2021 12:21 AM CDT [facility] pH 7.43 7.35 - 7.45 pH 02/17/2021 12:21 AM CDT [facility] Ionized Calcium pH Adjusted 1.19 1.19 - 1.34 mmol/L 02/17/2021 12:21 AM CDT [facility] Blood BLOOD SPECIMEN / Unknown Venipuncture / Unknown 02/17/2021 12:12 AM CDT 02/17/2021 12:18 AM CDT Fredy Felipe MD LAB - CHEMISTRY JOSE ENRIQUE VELA [address] [address], [facility] [phone] * (ABNORMAL) BLOOD GASES ART + COOX PANEL (02/17/2021 12:12 AM CDT) pH Arterial 7.46(H) 7.35 - 7.45 pH 02/17/2021 12:22 AM [facility] pO2 Arterial 108(H) 80 - 100 mmHg 02/17/2021 12:22 AM [facility] pCO2 Arterial 40 35 - 45 mmHg 12:22 AM [facility] HCO3 Arterial 28 20 - 30 mmol/l 02/17/2021 12:22 AM [facility] BE Arterial 4.2(H) -2.0 - 2.0 mmol/L 02/17/2021 12:22 AM [facility] Oxyhemoglobin Arterial 96.5 % 02/17/2021 12:22 AM [facility] Dexoyhemoglobin (HHB) % 1.0 % 02/17/2021 12:22 AM [facility] Methemoglobin 0.9 0.0 - 2.0 % 02/17/2021 12:22 AM [facility] Carboxyhemoglobin 1.6 0.0 - 2.0 % 2020 12:22 AM [facility] O2 Content Arterial 19.1 Interpret within clinical context mg/dL 02/17/2021 12:22 AM [facility] Hemoglobin by COOX 14.0 12.0 - 17.6 g/dL 02/17/2021 12:22 AM [facility] O2 Saturation Arterial 99 90 - 100 % 02/17/2021 12:22 AM [facility] FI O2 Arterial 35.0 % 02/17/2021 12:22 AM [facility] Blood, arterial ARTERIAL BLOOD SPECIMEN / Unknown Arterial Puncture / Unknown 02/17/2021 12:12 AM T 02/17/2021 12:18 AM [facility] - 02/17/2021 12:22 AM [facility] Carboxyhemoglobin Normal Concentration: Non-smokers: 0-2%; Smokers: 0-9%; Toxic: >20% Fredy Felipe MD LAB - BLOOD GASES OR DERABLES [facility] [address] [place] [address], [facility] [phone] * CT HEAD WO CONTRAST (02/16/2021 3:00 PM CDT) Anatomical Region Laterality Modality Head Computed Tomogra phy 02/16/2021 3:05 PM CDT Impressions 02/17/2021 3:44 PM CDT IMPRESSION: 1. No acute intracranial abnormality. 2. Large fracture deformity of the floor of left orbit with herniation of the intraorbital fat through the fracture defect which appears to represent a chronic finding without air-fluid level within left maxillary sinus. 3. Lobulated mucosal disease within bilateral maxillary sinuses with additional paranasal sinus mucosal disease. Dictated by Uyen Garcia MD (residential leasing manager). I, Dr. JUNE MADRID have personally reviewed and interpreted this examination/study. This report was electronically signed by JUNE MADRID ??on 02/17/2021 3:44 PM . Narrative 02/17/2021 3:44 PM CDT EXAM: CT BRAIN WITHOUT CONTRAST CLINICAL INDICATION: T14.90XA: Trauma TECHNIQUE: Contiguous axial images through head were obtained without intravenous contrast administration. ??Brain and bone window images were obtained. COMPARISON: None FINDINGS: Brain parenchyma: Brain volume is normal for age. ??No large acute infarction, mass, hemorrhage or abnormal extra-axial fluid collection. Ventricles and the midline: Ventricles are normal without a midline shift or hydrocephalus. Skull and soft tissues: No acute fracture, bony or soft tissue abnormality. Extracranial structures: No acute intraorbital abnormality. Large fracture deformity of the floor of left orbit which appears chronic with herniation of intraorbital fat through the fracture defect. Small foci of soft tissue emphysema is present within left infraorbital anterior facial subcutaneous tissues and right buccal space along the right side of the maxillary alveolar ridge. Lobulated mucosal disease is present within bilateral maxillary sinuses without an air-fluid level. Mucosal disease is also present within bilateral frontal, ethmoid and sphenoid sinuses. Visualized mastoids and tympanic cavities demonstrate no significant opacification. Procedure Note June Madrid MD - 02/17/2021 EXAM: CT BRAIN WITHOUT CONTRAST CLINICAL INDICATION: T14.90XA: Trauma TECHNIQUE: Contiguous axial images through head were obtained without intravenous contrast administration. Brain and bone window images were obtained. COMPARISON: None FINDINGS: Brain parenchyma: Brain volume is normal for age. No large acute infarction, mass, hemorrhage or abnormal extra-axial fluid collection. Ventricles and the midline: Ventricles are normal without a midline shift or hydrocephalus. Skull and soft tissues: No acute fracture, bony or soft tissue abnormality. Extracranial structures: No acute intraorbital abnormality. Large fracture deformity of the floor of left orbit which appears chronic with herniation of intraorbital fat through the fracture defect. Small foci of soft tissue emphysema is present within left infraorbital anterior facial subcutaneous tissues and right buccal space along the right side of the maxillary alveolar ridge. Lobulated mucosal disease is present within bilateral maxillary sinuses without an air-fluid level. Mucosal disease is also present within bilateral frontal, ethmoid and sphenoid sinuses. Visualized mastoids and tympanic cavities demonstrate no significant opacification. IMPRESSION: 1. No acute intracranial abnormality. 2. Large fracture deformity of the floor of left orbit with herniationof the intraorbital fat through the fracture defect which appears to represent a chronic finding without air-fluid level within leftmaxillary sinus. 3. Lobulated mucosal disease within bilateral maxillary sinuses with additional paranasal sinus mucosal disease. Dictated by Uyen Garcia MD (residential leasing manager). Dr. JUNE Yao have personally reviewed and interpreted this examination/study. This report was electronically signed by JUNE MADRID on 02/17/2021 3:[address] MD [address] ORDERABLES * XR CHEST 1VW PORTABLE (02/16/2021 5:50 AM CDT) Anatomical Region Laterality Modality Chest Radiographic Sera ging 02/16/2021 5:49 AM CDT Impressions 02/16/2021 12:26 PM CDT FINDINGS/IMPRESSION: Endotracheal tube terminates in mid thoracic trachea. A left subclavian approach central venous catheter terminates at the junction of the left brachycephalic vein and superior vena cava. Bilateral thoracostomy tubes are unchanged in position. A gastric tube courses to the stomach out of the [id number]. Chest wall and lower neck subcutaneous emphysema is decreased from prior study. Pneumomediastinum is decreased from prior study. Mild left basilar atelectasis is unchanged. Pleural effusion may contribute to opacity. There is no pneumothorax. The cardiomediastinal silhouette is partially obscured. Dictated by Alverto Ames MD (residential leasing manager). Dr. EULA Yao have personally reviewed and interpreted this examination/study. This report was electronically signed by EULA GONZALEZ ??on 02/16/2021 12:26 PM . Narrative 02/16/2021 12:26 PM CDT EXAMINATION: XR CHEST 1VW PORTABLE, 02/16/2021 5:50 AM HISTORY: T14.90XA: Trauma COMPARISON: Comparison is made with a study from 02/15/2021. Procedure Note Eula Gonzalez MD - 02/16/2021 EXAMINATION: XR CHEST 1VW PORTABLE, 02/16/2021 5:50 AM HISTORY: T14.90XA: Trauma COMPARISON: Comparison is made with a study from 02/15/2021. FINDINGS/IMPRESSION: Endotracheal tube terminates in mid thoracic trachea. A left subclavian approach central venous catheter terminates at the junction of the left brachycephalic vein and superior vena cava. Bilateral thoracostomy tubes are unchanged in position. A gastric tube courses to the stomach out of the [id number]. Chest wall and lower neck subcutaneous emphysema is decreased from prior study. Pneumomediastinum is decreased from prior study. Mild left basilar atelectasis is unchanged. Pleural effusion may contribute to opacity. There is no pneumothorax. The cardiomediastinal silhouette is partially obscured. Dictated by Alverto Ames MD (residential leasing manager). I, Dr. EULA GONZALEZ have personally reviewed and interpreted this examination/study. This report was electronically signed by EULA GONZALEZ on 02/16/2021 12:26 PM . Fredy Felipe MD DIAGNOSTIC IMAGING O RDERABLES * (ABNORMAL) DIFFERENTIAL MANUAL (02/15/2021 10:34 PM CDT) WBC (corrected for NRBC) 24.3 10? 3 /uL 02/15/2021 11:58 PM CDT [facility] Total Cell Count 100 02/16/20 21 11:58 PM CDT [facility] Neutrophils Absolute Manual 22.36(H) 1.60 - 7.00 10? 3 /uL 02/15/2021 11:58 PM T [facility] Comment:(BANDS+SEGS) x WBC = NEUT # (ANC) Lymphocyte Absolute Manual 0.49(L) 1.10 - 3.90 10? 3 /uL 02/15/2021 11:58 PM [facility] Monocytes Absolute Manual 1.46(H) 0.26 - 1.07 10? 3 /uL 02/15/2021 11:58 PM [facility] Band % Manual 4 0 - 10 % 02/15/2021 11:58 PM [facility] Neutrophil % Manual 88(H) 35 - 70 % 02/15/2021 11:58 PM [facility] Lymphocyte % Manual 2(L) 20 - 43 % 02/15/2021 11:58 PM [facility] Monocytes % Manual 6 5 - 13 % 02/15/2021 11:58 PM [facility] Platelet Estimate Adequate Adequate 02/15/2021 11:58 PM [facility] Anisocytosis 1+(A) None 02/15/2021 11:58 PM [facility] Blood BLOOD SPECIMEN / Unknown Venipuncture / Unknown 02/15/2021 10:34 PM CDT 02/15/2021 10:50 PM CDT Fredy Felipe MD LAB - HEMATOLOGY ORD ERABLES [facility] [address] [place] [address], [facility] [phone] * PT-INR [facility] (02/15/2021 10:34 PM CDT) PT 14.6 12.1 - 14.8 Seconds 02/15/2021 11:05 PM [facility] INR 1.2 See Comment 02/15/2021 11:05 PM [facility] Comment:The suggested therap eutic range for standard coumadin (warfarin) therapy is an INR of 2.0-3.0. For high-risk patients (Mechanical Mitral Valve Prosthesis, etc.), the suggested prophylactic therapeutic range is an INR of 2.5-3.5. Blood BLOOD SPECIMEN / Unknown Venipuncture / Unknown 02/15/2021 10:34 PM CDT 02/15/2021 10:45 PM CDT Fredy Felipe MD LAB - COAGULATION OR DERABLES [address] [address], [place] [phone] * PHOSPHORUS BLOOD (02/15/2021 10:34 PM CDT) Phosphorus 4.0 2.8 - 5.1 mg/dL 02/15/2021 11:17 PM CDT [facility] Blood BLOOD SPECIMEN / Unknown Venipuncture / Unknown 02/15/2021 10:34 PM CDT 02/15/2021 10:50 PM CDT Fredy Felipe MD LAB - CHEMISTRY JOSE ENRIQUE VELA Performing Organization Address City/[facility]/ZIP Co de Phone Number [address] [address], [place] [phone] * MAGNESIUM BLOOD (02/15/2021 10:34 PM CDT) Magnesium 1.8 1.6 - 2.6 mg/dL 02/15/2021 11:17 PM CDT [facility] Blood BLOOD SPECIMEN / Unknown Venipuncture / Unknown 02/15/2021 10:34 PM CDT 02/15/2021 10:50 PM CDT Fredy Felipe MD LAB - CHEMISTRY JOSE ENRIQUE VELA [address] [address], [place] [phone] * (ABNORMAL) BASIC METABOLIC PANEL (CALCIUM TOTAL) (02/15/2021 10:34 PM CDT) BUN 9 7 - 26 mg/dL 02/15/2021 11:17 PM CDT [facility] Creatinine 0.90 0.71 - 1.16 mg/dL 02/15/2021 11:17 PM [facility] Sodium 144 136 - 145 mmol/L 02/15/2021 11:17 PM [facility] Potassium 4.0 3.5 - 4.5 mmol/L 02/15/2021 11:17 PM [facility] Chloride 106 98 - 107 mmol/L 02/15/2021 11:17 PM [facility] CO2 26 22 - 29 mmol/L 02/15/2021 11:17 PM [facility] Glucose 118(H) 70 - 115 mg/dL 02/15/2021 11:17 PM [facility] Calcium 9.1 8.4 - 10.2 mg/dL 02/15/2021 11:17 PM [facility] Anion Gap 16 8 - 18 02/15/2021 11:17 PM [facility] BUN/Creatinine Ratio 10 - 23 02/15/2021 11:17 PM [facility] Osmolality Calculated 298 270 - 300 mOsm/kg 02/15/2021 11:17 PM [facility] eGFR by CKD-EPI >90 >=90 mL/min/1.7 3 m2 02/15/2021 11:17 PM [facility] Blood BLOOD SPECIMEN / Unknown Venipuncture / Unknown 02/15/2021 10:34 PM CDT 02/15/2021 10:50 PM T Fredy Felipe MD LAB - CHEMISTRY JOSE ENRIQUE VELA [facility] Organization Address City/State/ZIP Co de Phone Number [facility] [address] [place] [address], [facility] [phone] * (ABNORMAL) BLOOD GASES ART + COOX PANEL (02/15/2021 10:34 PM CDT) pH Arterial 7.48(H) 7.35 - 7.45 pH 02/15/2021 10:50 PM [facility] pO2 Arterial 71(L) 80 - 100 mmHg 02/15/2021 10:50 PM [facility] pCO2 Arterial 38 35 - 45 mmHg 10:50 PM [facility] HCO3 Arterial 28 20 - 30 mmol/l 02/15/2021 10:50 PM [facility] BE Arterial 4.6(H) -2.0 - 2.0 mmol/L 02/15/2021 10:50 PM [facility] Oxyhemoglobin Arterial 93.4 % 02/15/2021 10:50 PM [facility] Dexoyhemoglobin (HHB) % 3.9 % 02/15/2021 10:50 PM [facility] Methemoglobin <0.8 0.0 - 2.0 % 02/15/2021 10:50 PM [facility] Carboxyhemoglobin 2.0 0.0 - 2.0 % 2020 10:50 PM [facility] O2 Content Arterial 18.8 Interpret within clinical context mg/dL 02/15/2021 10:50 PM [facility] Hemoglobin by COOX 14.3 12.0 - 17.6 g/dL 02/15/2021 10:50 PM [facility] O2 Saturation Arterial 96 90 - 100 % 02/15/2021 10:50 PM [facility] FI O2 Arterial 40.0 % 02/15/2021 10:50 PM [facility] Blood, arterial ARTERIAL BLOOD SPECIMEN / Unknown Arterial Puncture / Unknown 02/15/2021 10:34 PM CDT 02/15/2021 10:45 PM T [facility] - 02/15/2021 10:50 PM CDT Carboxyhemoglobin Normal Concentration: Non-smokers: 0-2%; Smokers: 0-9%; Toxic: >20% Fredy Felipe MD LAB - BLOOD GASES OR DERABLES [facility] [address] [place] [address], [facility] [phone] * (ABNORMAL) CBC W AUTO DIFFERENTIAL (02/15/2021 10:34 PM CDT) WBC 24.3(H) 3.5 - 10.5 10? 3 /uL 02/15/2021 10:57 PM [facility] RBC 4.98 4.30 - 5.70 10? 6 /uL 02/15/2021 10:57 PM [facility] Hemoglobin 13.8 12.0 - 17.6 g/dL 02/15/2021 10:57 PM [facility] Hematocrit 42.1 35.2 - 51.7 % 02/15/2021 10:57 PM [facility] MCV 84.5 80.7 - 98.3 fL 02/15/2021 10:57 PM [facility] MCH 27.7 26.7 - 34.0 pg 02/15/2021 10:57 PM [facility] MCHC 32.8 30.8 - 35.9 g/dL 02/15/2021 10:57 PM [facility] Platelet Count 315 150 - 400 10? 3 /uL 02/15/2021 10:57 PM [facility] RDW-SD 44.1 36.0 - 50.0 fL 02/15/2021 10:57 PM [facility] RDW-CV 14.4 11.2 - 14.8 % 02/15/2021 10:57 PM [facility] MPV 9.0(L) 9.4 - 12.9 fL 02/15/2021 10:57 PM [facility] nRBC Absolute 0.00 0 10? 3 /uL 02/15/2021 10:57 PM [facility] nRBC Auto 0.0 0 /100 WBC 02/15/2021 10:57 PM [facility] Blood BLOOD SPECIMEN / Unknown Venipuncture / Unknown 02/15/2021 10:34 PM CDT 02/15/2021 10:50 PM CDT Fredy Felipe MD LAB - HEMATOLOGY ORD ERABLES [address] [address], [facility] [phone] * (ABNORMAL) CALCIUM IONIZED WHOLE BLOOD (02/15/2021 10:34 PM CDT) Calcium Ionized 1.17 mmol/L 02/15/2021 10:53 PM [facility] pH 7.50(H) 7.35 - 7.45 pH 02/15/2021 10:53 PM [facility] Ionized Calcium pH Adjusted 1.22 1.19 - 1.34 mmol/L 02/15/2021 10:53 PM [facility] Blood BLOOD SPECIMEN / Unknown Venipuncture / Unknown 02/15/2021 10:34 PM CDT 02/15/2021 10:46 PM CDT Fredy Felipe MD LAB - CHEMISTRY JOSE ENRIQUE VELA [facility] Organization Address City/State/ZIP Co de Phone Number [facility] [address] [place] [address], [facility] [phone] * (ABNORMAL) BLOOD GASES ART + COOX PANEL (02/15/2021 10:41 AM CDT) pH Arterial 7.46(H) 7.35 - 7.45 pH 02/15/2021 10:47 AM [facility] pO2 Arterial 99 80 - 100 mmHg 02/15/2021 10:47 AM [facility] pCO2 Arterial 37 35 - 45 mmHg 10:47 AM [facility] HCO3 Arterial 26 20 - 30 mmol/l 02/15/2021 10:47 AM [facility] BE Arterial 2.6(H) -2.0 - 2.0 mmol/L 02/15/2021 10:47 AM [facility] Oxyhemoglobin Arterial 96.5 % 02/15/2021 10:47 AM [facility] Dexoyhemoglobin (HHB) % 1.2 % 02/15/2021 10:47 AM [facility] Methemoglobin 0.9 0.0 - 2.0 % 02/15/2021 10:47 AM [facility] Carboxyhemoglobin 1.4 0.0 - 2.0 % 2020 10:47 AM [facility] O2 Content Arterial 21.4 Interpret within clinical context mg/dL 02/15/2021 10:47 AM CDT [facility] Hemoglobin by COOX 15.7 12.0 - 17.6 g/dL 02/15/2021 10:47 AM CDT [facility] O2 Saturation Arterial 99 90 - 100 % 02/15/2021 10:47 AM T [facility] FI O2 Arterial 50.0 % 02/15/2021 10:47 AM CDT [facility] Blood, arterial ARTERIAL BLOOD SPECIMEN / Unknown Arterial Puncture / Unknown 02/15/2021 10:41 AM CDT 02/15/2021 10:45 AM CDT Narrative [facility] - 02/15/2021 10:47 AM CDT Carboxyhemoglobin Normal Concentration: Non-smokers: 0-2%; Smokers: 0-9%; Toxic: >20% Fredy Felipe MD LAB - BLOOD GASES OR DERABLES Performing Organization Address [facility] Co de Phone Number [address] [address], [place] [phone] * (ABNORMAL) CALCIUM IONIZED WHOLE BLOOD (02/15/2021 10:41 AM CDT) Calcium Ionized 1.19 mmol/L 02/15/2021 10:47 AM T [facility] pH 7.46(H) 7.35 - 7.45 pH 02/15/2021 10:47 AM T [facility] Ionized Calcium pH Adjusted 1.22 1.19 - 1.34 mmol/L 02/15/2021 10:47 AM T [facility] Blood BLOOD SPECIMEN / Unknown Venipuncture / Unknown 02/15/2021 10:41 AM CDT 02/15/2021 10:44 AM CDT Fredy Felipe MD LAB - CHEMISTRY ORDNolan VELA Performing Organization Address [facility]/ZIP Co de Phone Number [address] [address], [place] [phone] * (ABNORMAL) DIFFERENTIAL MANUAL (02/15/2021 10:40 AM CDT) WBC (corrected for NRBC) 35.7 10? 3 /uL 02/15/2021 11:39 AM [facility] Total Cell Count 100 02/15/2021 11:39 AM [facility] Neutrophils Absolute Manual 33.56(H) 1.60 - 7.00 10? 3 /uL 02/15/2021 11:39 AM [facility] Comment:(BANDS+SEGS) x WBC = NEUT # (ANC) Lymphocyte Absolute Manual 0.71(L) 1.10 - 3.90 10? 3 /uL 02/15/2021 11:39 AM [facility] Monocytes Absolute Manual 1.43(H) 0.26 - 1.07 10? 3 /uL 02/15/2021 11:39 AM [facility] Band % Manual 2 0 - 10 % 02/15/2021 11:39 AM [facility] Neutrophil % Manual 92(H) 35 - 70 % 02/15/2021 11:39 AM [facility] Lymphocyte % Manual 2(L) 20 - 43 % 02/15/2021 11:39 AM [facility] Monocytes % Manual 4(L) 5 - 13 % 02/15/2021 11:39 AM [facility] Platelet Estimate Adequate Adequate 02/15/2021 11:39 AM [facility] RBC Morphology Normal 02/15/2021 11:39 AM [facility] Blood BLOOD SPECIMEN / Unknown Venipuncture / Unknown 02/15/2021 10:40 AM CDT 02/15/2021 10:48 AM T Fredy Felipe MD LAB - HEMATOLOGY ORD ERABLES [facility] [address] [place] [address], [facility] [phone] * (ABNORMAL) PHOSPHORUS BLOOD (02/15/2021 10:40 AM CDT) Phosphorus 2.4(L) 2.8 - 5.1 mg/dL 02/15/2021 11:14 AM [facility] Blood BLOOD SPECIMEN / Unknown Venipuncture / Unknown 02/15/2021 10:40 AM CDT 02/15/2021 10:48 AM CDT Fredy Felipe MD LAB - CHEMISTRY JOSE ENRIQUE VELA Performing Organization Address City/[facility]/ZIP Co de Phone Number [facility] [address] [place] [address], [facility] [phone] * MAGNESIUM BLOOD (02/15/2021 10:40 AM CDT) Magnesium 1.8 1.6 - 2.6 mg/dL 02/15/2021 11:14 AM CDT [facility] Blood BLOOD SPECIMEN / Unknown Venipuncture / Unknown 02/15/2021 10:40 AM CDT 02/15/2021 10:48 AM CDT Fredy Felipe MD LAB - CHEMISTRY JOSE ENRIQUE VELA Performing Organization Address [facility] Co de Phone Number [address] [address], [facility] [phone] * (ABNORMAL) CBC W AUTO DIFFERENTIAL (02/15/2021 10:40 AM CDT) WBC 35.7(H) 3.5 - 10.5 10? 3 /uL 02/15/2021 11:16 AM [facility] RBC 5.37 4.30 - 5.70 10? 6 /uL 02/15/2021 11:16 AM [facility] Hemoglobin 15.2 12.0 - 17.6 g/dL 02/15/2021 11:16 AM [facility] Hematocrit 45.5 35.2 - 51.7 % 02/15/2021 11:16 AM [facility] MCV 84.7 80.7 - 98.3 fL 02/15/2021 11:16 AM [facility] MCH 28.3 26.7 - 34.0 pg 02/15/2021 11:16 AM [facility] MCHC 33.4 30.8 - 35.9 g/dL 02/15/2021 11:16 AM [facility] Platelet Count 358 150 - 400 10? 3 /uL 02/15/2021 11:16 AM [facility] RDW-SD 43.5 36.0 - 50.0 fL 02/15/2021 11:16 AM [facility] RDW-CV 14.2 11.2 - 14.8 % 02/15/2021 11:16 AM [facility] MPV 8.9(L) 9.4 - 12.9 fL 02/15/2021 11:16 AM [facility] nRBC Absolute 0.00 0 10? 3 /uL 02/15/2021 11:16 AM [facility] nRBC Auto 0.0 0 /100 WBC 02/15/2021 11:16 AM [facility] Blood BLOOD SPECIMEN / Unknown Venipuncture / Unknown 02/15/2021 10:40 AM CDT 02/15/2021 10:48 AM T Fredy Felipe MD LAB - HEMATOLOGY ORD ERABLES [facility] [address] [place] [address], [facility] [phone] * (ABNORMAL) COMPREHENSIVE METABOLIC PANEL (02/15/2021 10:40 AM CDT) BUN 10 7 - 26 mg/dL 02/15/2021 11:14 AM [facility] Creatinine 1.02 0.71 - 1.16 mg/dL 02/15/2021 11:14 AM [facility] Sodium 144 136 - 145 mmol/L 02/15/2021 11:14 AM [facility] Potassium 3.8 3.5 - 4.5 mmol/L 02/15/2021 11:14 AM [facility] Chloride 105 98 - 107 mmol/L 02/15/2021 11:14 AM [facility] CO2 26 22 - 29 mmol/L 02/15/2021 11:14 AM [facility] Glucose 171(H) 70 - 115 mg/dL 02/15/2021 11:14 AM [facility] Calcium 9.6 8.4 - 10.2 mg/dL 02/15/2021 11:14 AM [facility] Protein Total 6.9 6.0 - 8.3 g/dL 02/15/2021 11:14 AM [facility] Albumin 3.5 3.4 - 5.0 g/dL 02/15/2021 11:14 AM [facility] Bilirubin Total 0.4 0.2 - 1.2 mg/dL 02/15/2021 11:14 AM [facility] Alkaline Phosphatase 97 40 - 150 U/L 02/15/2021 11:14 AM [facility] ALT 78(H) 5 - 55 U/L 02/15/2021 11:14 AM [facility] AST 96(H) 5 - 34 U/L 02/15/2021 11:14 AM [facility] Anion Gap 17 8 - 18 02/15/2021 11:14 AM [facility] BUN/Creatinine Ratio 10 7 - 23 02/15/2021 11:14 AM [facility] Osmolality Calculated 301(H) 270 - 300 mOsm/kg 02/15/2021 11:14 AM [facility] Albumin/Globulin Ratio 1.0(L) 1.1 - 2.3 02/15/2021 11:14 AM [facility] eGFR by CKD-EPI >90 >=90 mL/min/1.7 3 m2 02/15/2021 11:14 AM [facility] Blood BLOOD SPECIMEN / Unknown Venipuncture / Unknown 02/15/2021 10:40 AM CDT 02/15/2021 10:48 AM T Fredy Felipe MD LAB - CHEMISTRY JOSE ENRIQUE VELA [facility] Organization Address City/State/ZIP Co de Phone Number [facility] [address] [place] [address],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 of water.??Initial 500mL to be drank when CT staff states, and the last 200mL to be drank when transport arrives. $ Given - Contrast 03/06/2021 5:22 PM CDT 30 mL iopamidol (Isovue 370) 76 % contrast Intravenous, CONTRAST ONCE, Starting on Jalyn 03/06/21 at 1831, Until 03/08/21 at 1830 $ Given - Contrast 03/06/2021 6:38 PM CDT 150 mL ketamine (Ketalar) 500 mg in 0.9% NaCl IV 50 mL infusion 0-10 mcg/kg/min ? 63.8 kg [place] weight (0-3.828 mL/hr, rounded to 0-3.83 mL/hr), Intravenous, CONTINUOUS, Starting on 02/15/21 at 1000, Until 02/15/21 at 1803, . , Titration Parameters: Standard Parameters, Indication: Sedation, Initiate infusion at: 2 mcg/kg/min, Titrate infusion by: 1 mcg/kg/min, Titrate every: 5 minutes, To maintain a RASS score of: 0 to -1 (Alert and Calm to Drowsy), Notify physician if: Unachievable RASS goal despite max dose, SBP greater than 150 mmHg Rate Change 02/15/2021 2:59 PM CDT 2.011 mcg/kg/min 0.77 mL/hr Rate Change 02/15/2021 12:01 PM CDT 3.004 mcg/kg/min 1.15 mL/hr Rate Change 02/15/2021 11:56 AM CDT 4.99 mcg/kg/min 1.91 m L/hr labetalol (Normodyne; Trandate) injection 10 mg 10 mg, Intravenous, EVERY 2 HOURS PRN, SBP greater than 170 mmHg, Starting on Wed02/16/21 at 0458, Until Wed02/23/21 at 1910, Max IV dose is 300mg/24 hours. $ Given 02/23/2021 6:49 PM CDT 10 mg $ Given 02/23/2021 5:31 PM CDT 10 mg $ Given 02/23/2021 1:07 PM CDT 10 mg labetalol (Normodyne; Trandate) injection 10 mg 10 mg, Intravenous, ONCE, 1 dose, On Wed03/04/21 at 0330, Max IV dose is 300mg/24 hours. $ Given 03/04/2021 3:39 AM CDT 10 mg labetalol (Normodyne; Trandate) injection 20 mg 20 mg, Intravenous, EVERY 4 HOURS PRN, SBP greater than 160 mmHg, Starting on Wed03/04/21 at 1648, Until Wed03/04/21 at 2251, Max IV dose is 300mg/24 hours. $ Given 03/04/2021 7:42 PM CDT 20 mg labetalol (Normodyne; Trandate) injection 20 mg 20 mg, Intravenous, EVERY 2 HOURS PRN, SBP greater than 160 mmHg, Starting on Wed03/04/21 at 2300, Until Wed03/12/21 at 2210, Max IV dose is 300mg/24 hours. $ Given 03/12/2021 8:05 PM CDT 20 mg $ Given 03/11/2021 5:24 PM CDT 20 mg $ Given 03/11/2021 11:26 AM CDT 20 mg lactated ringers infusion at 125 mL/hr, Intravenous, CONTINUOUS, Starting on 02/15/21 at 0800, Until 02/22/21 at 0931 $ New Bag/Syringe 02/22/2021 8:37 AM CDT 125 mL/hr Current Rate 02/22/2021 8:00 AM CDT 125 mL/hr $ New Bag/Syringe 02/21/2021 10:27 PM CDT 125 m L/hr lactated ringers infusion at 100 mL/hr, Intravenous, CONTINUOUS, Starting on Wed03/05/21 at 0445, Until Wed03/05/21 at 1734 $ New Bag/Syringe 03/05/2021 4:50 AM CDT 100 mL/hr lactated ringers IV bolus 1,000 mL, at 3,750 mL/hr, Administer over 16 Minutes, NOW, 1 dose, On 02/15/21 at 0630 $ New Bag/Syringe 02/15/2021 7:26 AM CDT 1,000 mL 3750 mL/hr lactated ringers IV bolus 1,000 mL, at 983.61 mL/hr, Administer over 61 Minutes, ONCE, 1 dose, On Wed02/21/21 at 1445 Current Rate 02/21/2021 4:00 PM CDT 983.61 mL/hr Current Rate 02/21/2021 3:49 PM CDT 983.61 mL/h r $ New Bag/Syringe 02/21/2021 3:48 PM CDT 1,000 mL 983.61 mL/hr lactated ringers IV bolus 1,000 mL, at 983.61 mL/hr, Administer over 61 Minutes, ONCE, 1 dose, On Wed03/07/21 at 0245 $ New Bag/Syringe 03/07/2021 3:03 AM CDT 1,000 mL 983.61 mL/hr lactulose (Chronulac) solution 20 g 20 g, Enteral Tube, 3 TIMES DAILY, First dose on 03/01/21 at 1400, Until Discontinued, Hold for >2 BMs/day. $ Given 03/03/2021 2:00 PM CDT 20 g G Tube $ Given 03/03/2021 8:08 AM CDT 20 g G Tube $ Given 03/02/2021 9:12 PM CDT 20 g J Tube lidocaine 1.5% (Xylocaine-MPF)- EPINEPHrine 1:200,000 injection PRN, Starting on Wed03/05/21 at 1610, Until Wed03/12/21 at 2210, Intra-op $ Given 03/05/2021 4:10 PM CDT 5 mL Operative Site linezolid (Zyvox) 600 mg in 300 ml IVPB 600 mg, at 200 mL/hr, Intravenous, EVERY 12 HOURS, First dose on Wed03/09/21 at 1100, Until Discontinued, Indication for anti-infective therapy: Documented infection, Site of anti-infective therapy: Intra-abdominal $ New Bag/Syringe 03/12/2021 11:28 AM CDT 600 mg 200 mL/hr $ New Bag/Syringe 03/11/2021 11:02 PM CDT 600 mg 200 m L/hr $ New Bag/Syringe 03/11/2021 10:59 AM CDT 600 mg 200 m L/hr LORazepam (Ativan) injection 1 mg 1 mg, Intravenous, ONCE, 1 dose, On Wed03/07/21 at 0300 $ Given 03/07/2021 4:12 AM CDT 1 mg magnesium sulfate 2 g in 50 mL bolus 2 g, at 25 mL/hr, Administer over 120 Minutes, Intravenous, ONCE, 1 dose, On Wed02/16/21 at 0045, Infuse at 1 gm/hr Rate Change 02/16/2021 1:06 AM CDT 25 mL/hr Rate Change 02/16/2021 1:05 AM CDT 25 mL/hr $ New Bag/Syringe 02/16/2021 1:03 AM CDT 2 g 25 mL/ hr magnesium sulfate 2 g in 50 mL bolus 2 g, at 25 mL/hr, Administer over 120 Minutes, Intravenous, ONCE, 1 dose, On Wed02/19/21 at 0200, Infuse at 1 gm/hr $ New Bag/Syringe 02/19/2021 1:45 AM CDT 2 g 25 mL/hr magnesium sulfate 2 g in 50 mL bolus 2 g, at 25 mL/hr, Administer over 120 Minutes, Intravenous, ONCE, 1 dose, On 02/22/21 at 0145, Infuse at 1 gm/hr $ New Bag/Syringe 02/22/2021 2:48 AM CDT 2 g 25 mL/hr magnesium sulfate 2 g in 50 mL bolus 2 g, at 25 mL/hr, Administer over 120 Minutes, Intravenous, ONCE, 1 dose, On Wed02/24/21 at 0415, Infuse at 1 gm/hr $ New Bag/Syringe 02/24/2021 4:33 AM CDT 2 g 25 mL/hr magnesium sulfate 2 g in 50 mL bolus 2 g, at 25 mL/hr, Administer over 120 Minutes, Intravenous, ONCE, 1 dose, On Wed02/25/21 at 0430, Infuse at 1 gm/hr $ New Bag/Syringe 02/25/2021 8:55 AM CDT 2 g 25 mL/hr morphine injection 2 mg 2 mg, Intravenous, ONCE, 1 dose, On Jalyn 03/06/21 at 1700 $ Given 03/06/2021 4:43 PM CDT 2 mg niCARdipine (Cardene) 25 mg in 0.9% NaCl IV 250 mL infusion 0-15 mg/hr (0-150 mL/hr), Intravenous, CONTINUOUS, Starting on Wed02/23/21 at 1945, Until Wed02/26/21 at 1046, If removing dose from Pyxis, use white addEASE connector., Titration Parameters: Standard Parameters, Indication: Hypertension, Initiate infusion at: 2.5 mg/hr, Titrate infusion by: 2.5 mg/hr, Titrate every: 15 minutes, To maintain a: Other - see comments, Notify physician if: SBP greater than - Other - see comments, despite max dose Current Rate 02/25/2021 3:34 PM CDT 1.5 mg/hr 15 mL/hr Rate Change 02/25/2021 2:52 PM CDT 1.5 mg/hr 15 mL/hr Rate Change 02/25/2021 9:05 AM CDT 2.5 mg/hr 25 mL/hr oxyCODONE (immediate release) (Roxicodone) tablet 10 mg 10 mg, Enteral Tube, EVERY 4 HOURS PRN, Severe Pain, Starting on Wed02/26/21 at 1041, Until Wed03/12/21 at 2210 $ Given 03/12/2021 11:28 AM CDT 10 mg G Tu be $ Given 03/11/2021 5:26 PM CDT 10 mg G Tube $ Given 03/11/2021 6:03 AM CDT 10 mg G Tube oxyCODONE (immediate release) (Roxicodone) tablet 5 mg 5 mg, Enteral Tube, EVERY 4 HOURS PRN, Moderate Pain, Starting on 02/26/21 at 1041, Until 03/12/21 at 2210 $ Given 03/12/2021 5:36 AM CDT 5 mg G Tube pantoprazole (Protonix) injection 40 mg 40 mg, Intravenous, DAILY, First dose on 03/01/21 at 1945, Until Discontinued, For every 40 mg of pantoprazole mix with 10 mL Normal Saline (final concentration = 4 mg/mL). Inject SLOWLY over 2 min. $ Given 03/12/2021 9:09 AM CDT 40 mg $ Given 03/11/2021 8:12 AM CDT 40 mg $ Given 03/10/2021 9:06 AM CDT 40 mg piperacillin - tazobactam (Zosyn) 4.5 g in 0.9% NaCl IV 110 mL IVPB 4.5 g, at 27.5 mL/hr, Intravenous, EVERY 8 HOURS, First dose on Jalyn 03/06/21 at 2045, Until Discontinued, (50 mL bag + 5 mL of bag overfill = 55 mL total volume to be infused), Indication for anti-infective therapy: Documented infection, Site of anti-infective therapy: Intra-abdominal $ New Bag/Syringe 03/12/2021 6:13 PM CDT 4.5 g 27.5 mL/hr $ New Bag/Syringe 03/12/2021 3:11 PM CDT 4.5 g 27.5 m L/hr $ New Bag/Syringe 03/12/2021 5:43 AM CDT 4.5 g 27.5 m L/hr polyethylene glycol 3350 (Miralax) packet 17 g 17 g, Enteral Tube, DAILY, First dose on 02/26/21 at 1130, Until Discontinued, Hold for >2 BMs/day. Mix in 8 ounces of water, juice, soda, coffee or tea prior to administration $ Given 03/03/2021 8:10 AM CDT 17 g G Tube $ Given 02/27/2021 8:14 AM CDT 17 g G Tube $ Given 02/26/2021 12:00 PM CDT 17 g G Tube potassium chloride (Klor-Con) packet 20 mEq 20 mEq, Enteral Tube, ONCE, 1 dose, On 03/01/21 at 0200, DISSOLVE IN 120 ML OF COLD WATER OR JUICE AND DRINK SLOWLY $ Given 03/01/2021 2:16 AM CDT 20 mEq J Tube potassium chloride (Klor-Con) packet 20 mEq 20 mEq, Enteral Tube, ONCE, 1 dose, On Wed03/05/21 at 0430, DISSOLVE IN 120 ML OF COLD WATER OR JUICE AND DRINK SLOWLY $ Given 03/05/2021 4:56 AM CDT 20 mEq G Tube potassium chloride (Klor-Con) packet 40 mEq 40 mEq, Enteral Tube, ONCE, 1 dose, On Wed03/03/21 at 0400, DISSOLVE IN 120 ML OF COLD WATER OR JUICE AND DRINK SLOWLY $ Given 03/03/2021 4:11 AM CDT 40 mEq G Tube potassium chloride (Klor-Con) packet 40 mEq 40 mEq, Enteral Tube, ONCE, 1 dose, On 03/04/21 at 0300, DISSOLVE IN 120 ML OF COLD WATER OR JUICE AND DRINK SLOWLY $ Given 03/04/2021 3:40 AM CDT 40 mEq G Tube potassium chloride 20 mEq in 100 mL SW bolus 20 mEq, at 50 mL/hr, Administer over 2 Hours, Intravenous, ONCE, 1 dose, On 02/19/21 at 0200 $ New Bag/Syringe 02/19/2021 2:46 AM CDT 20 mEq 50 mL/hr propofol (Diprivan) infusion 0-80 mcg/kg/min ? 160.2 kg (0-76.896 mL/hr, rounded to 0-76.9 mL/hr), Intravenous, CONTINUOUS, Starting on Jalyn 02/20/21 at 1730, Until Jalyn 02/27/21 at 1119, Above RASS goal: Assess and treat pain [...] dose, Titration Priority: 1st $ New Bag/Syringe 02/27/2021 10:27 AM CDT 40 mcg/kg/min 38.45 mL/hr $ New Bag/Syringe 02/27/2021 8:20 AM CDT 40 mcg/kg/min 38. 45 mL/hr $ New Bag/Syringe 02/27/2021 5:02 AM CDT 40 mcg/kg/min 38. 45 mL/hr propofol (Diprivan) infusion 0-80 mcg/kg/min ? 160.2 kg (0-76.896 mL/hr, rounded to 0-76.9 mL/hr), Intravenous, CONTINUOUS, Starting on Jalyn 02/27/21 at 1130, Until 03/03/21 at 0451, Above RASS goal: Assess and treat pain [...] RASS goal despite max dose, Titration Priority: 3rd Rate Change 03/03/2021 6:35 AM CDT 20 mcg/kg/min 19.22 mL/hr Rate Change 03/03/2021 5:37 AM CDT 25 mcg/kg/min 24.03 mL/ hr Titration/Assessment 03/03/2021 5:09 AM CDT 30 mcg/kg/min 28.84 mL/hr propranolol (Inderal) injection 1 mg 1 mg, Intravenous, ONCE, 1 dose, On Jalyn 02/27/21 at 2345 $ Given 02/28/2021 12:17 AM CDT 1 mg propranolol (Inderal) tablet 10 mg 10 mg, Enteral Tube, EVERY 12 HOURS, First dose on Wed02/28/21 at 0900, Until Discontinued, Avoid abrupt withdrawal $ Given 03/08/2021 8:32 AM CDT 10 mg G Tub e $ Given 03/07/2021 8:22 PM CDT 10 mg G Tube $ Given 03/07/2021 8:41 AM CDT 10 mg G Tube propranolol (Inderal) tablet 10 mg 10 mg, Enteral Tube, EVERY 8 HOURS, First dose (after last modification) on 03/08/21 at 2200, Until Discontinued, Avoid abrupt withdrawal $ Given 03/12/2021 3:11 PM CDT 10 mg G Tube $ Given 03/12/2021 5:35 AM CDT 10 mg G Tube $ Given 03/11/2021 9:53 PM CDT 10 mg G Tube psyllium (Metamucil) 28 % packet 1 packet 1 packet, Oral, DAILY, First dose (after last reorder) on Jalyn 03/06/21 at 1315, Until Discontinued $ Given 03/08/2021 8:32 AM CDT 1 packet $ Given 03/07/2021 8:56 AM CDT 1 packet $ Given 03/06/2021 1:31 PM CDT 1 packet psyllium (Metamucil) 28 % packet 1 packet 1 packet, Per G Tube, DAILY, First dose (after last modification) on Wed03/09/21 at 0900, Until Discontinued $ Given 03/12/2021 9:12 AM CDT 1 packet $ Given 03/11/2021 8:18 AM CDT 1 packet $ Given 03/10/2021 9:07 AM CDT 1 packet senna (Senokot) tablet 8.6 mg 8.6 mg, Enteral Tube, DAILY, First dose on Wed02/26/21 at 1130, Until Discontinued, Hold for >2 BMs/day. $ Given 03/12/2021 9:09 AM CDT 8.6 mg G Tube $ Given 03/11/2021 8:12 AM CDT 8.6 mg G Tube $ Given 03/10/2021 9:05 AM CDT 8.6 mg G Tube sodium bicarbonate 8.4 % injection Intravenous, CODE PRN, Starting on 02/15/21 at 0449, Until 02/15/21 at 0500 $ Given 02/15/2021 5:00 A M CDT 50 mEq $ Given 02/15/2021 4:49 AM CDT 50 mEq sodium bicarbonate 8.4 % injection Intravenous, CODE PRN, Starting on 02/15/21 at 0537, Until 02/15/21 at 0539 $ Given 02/15/2021 5:39 A M CDT 50 mEq $ Given 02/15/2021 5:37 AM CDT 50 mEq sodium chloride (Inhalant) 7 % nebulizer solution 4 mL 4 mL, Inhalation, 2 TIMES DAILY, First dose on 03/08/21 at 2100, Until Discontinued $ Given 03/12/2021 11:36 AM CDT 4 mL $ Given 03/11/2021 11:43 PM CDT 4 mL $ Given 03/11/2021 11:59 AM CDT 4 mL surgilube gel PRN, Starting on 03/05/21 at 1624, Until 03/12/21 at 2210, Intra-op $ Given 03/05/2021 4:24 PM CDT 15 mL Operative Site TPN - CENTRAL LINE - ADULT - CLINIMIX - DAY 1 at 42.13 mL/hr, Intravenous (Continuous Infusion), TPN - 2199, Starting on 02/22/21 at 2200, Until 02/23/21 at 2159, Must be infused through a central line HIGH ALERT MEDICATION, Indication for TPN/PPN? Cannot tolerate enteral feeding Current Rate 02/23/2021 6:30 PM CDT 42.13 mL/hr Current Rate 02/23/2021 3:00 PM CDT 42.13 mL/hr Current Rate 02/23/2021 12:00 PM CDT 42.13 mL/h r TPN - CENTRAL LINE - ADULT - CLINIMIX - DAY 1 at 42.13 mL/hr, Intravenous (Continuous Infusion), TPN - 2199, Starting on 02/23/21 at 2200, Until 02/24/21 at 2159, Must be infused through a central line HIGH ALERT MEDICATION, Indication for TPN/PPN? Cannot tolerate enteral feeding $ New Bag/Syringe 02/23/2021 10:21 PM CDT 42.13 mL/hr TPN - CENTRAL LINE at 67.54 mL/hr, Intravenous (Continuous Infusion), TPN - 2199, Starting on Wed02/24/21 at 2200, Until Wed02/25/21 at 215, Must be infused through a Central Line HIGH ALERT MEDICATION, Total Kcalories: 1,145, Protein in grams: 125, Dextrose Kcalories: 645, Lipid Kcalories: 0, Salt ratio (chloride:acetate): 1:1, Volume: other (specify), Lipid Type: Plant-Based (Soy) Current Rate 02/25/2021 2:00 PM CDT 67.54 mL/hr $ New Bag/Syringe 02/25/2021 2:44 AM CDT 67.54 mL/hr TPN - CENTRAL LINE at 67.54 mL/hr, Intravenous (Continuous Infusion), TPN - 2199, Starting on Wed02/25/21 at 2200, Until Wed02/26/21 at 215, Must be infused through a Central Line HIGH ALERT MEDICATION, Total Kcalories: 1,145, Protein in grams: 125, Dextrose Kcalories: 645, Lipid Kcalories: 0, Salt ratio (chloride:acetate): 1:1, Volume: other (specify), Lipid Type: Plant-Based (Soy) $ New Bag/Syringe 02/25/2021 9:53 PM CDT 67.54 mL/hr vancomycin (Vancocin) 1,000 mg in 0.9% NaCl IV 250 mL IVPB 1,000 mg, at 250 mL/hr, Intravenous, EVERY 12 HOURS, First dose (after last reorder) on Wed02/26/21 at 2330, Until Discontinued, Indication for anti-infective therapy: Suspected infection, Site of anti-infective therapy: Blood $ New Bag/Syringe 02/27/2021 12:55 AM CDT 1,000 mg 250 mL/hr vancomycin (Vancocin) 2,000 mg in 500 mL NaCl IVPB Premix 2,000 mg, at 250 mL/hr, Intravenous, ONCE, 1 dose, On 10/23/21 at 0600, Indication for anti-infective therapy: Suspected infection, Site of anti-infective therapy: Wound $ New Bag/Syringe 03/08/2021 6:48 AM CDT 2,000 mg 250 mL/hr vancomycin (Vancocin) 2,500 mg in 500 mL NaCl IVPB 2,500 mg, at 200 mL/hr, Intravenous, ONCE, 1 dose, On Wed02/26/21 at 1100, Indication for anti-infective therapy: Suspected infection, Site of anti-infective therapy: Lower Respiratory $ New Bag/Syringe 02/26/2021 11:53 AM CDT 2,500 mg 200 mL/hr vancomycin (Vancocin) 2,500 mg in 500 mL NaCl IVPB 2,500 mg, at 200 mL/hr, Intravenous, ONCE, 1 dose, On Wed03/07/21 at 1200, Indication for anti-infective therapy: Suspected infection, Site of anti-infective therapy: Intra-abdominal $ New Bag/Syringe 03/07/2021 12:26 PM CDT 2,500 mg 200 mL/hr documented in this encounter Active and Recently Administered Medications Times are shown in CDT. Scheduled Medication Order 03/10/2021 03/11/2021 03/12/2021 0.9% NaCl injection 3 mL(Linked Group 1) 3 mL, Intracatheter, EVERY 8 HOURS, First dose on 02/15/21 at 0600, Until Discontinued, Flush peripheral IV catheter with 3 mL of normal saline every 8 hours. 0652 ($ Given - Provider: Fide Rivero RN)1337 ($ Given - Provider: Willie Coreas RN)2123 ($ Given - Provider: Fide Rivero RN) 0602 ($ Given - Provider: Fide Rivero RN)1329 ($ Given - Provider: Alix Mijares RN)2154 ($ Given - Provider: Dino Castillo, AIDA) 0536 ($ Given - Provider: Dino Castillo, AIDA)1510 ($ Given - Provider: Asif Alexis RN) acetylcysteine (Mucomyst) 20 % solution 600 mg 600 mg (3 mL), Inhalation, EVERY 6 HOURS, First dose on 03/08/21 at 1800, Until Discontinued 0026 ($ Given - Provider: Kaylee Colunga RCP)0540 ($ Given - Provider: Kaylee Colunga RCP)1232 (Held - Provider: Jose Oliva RCP - Reason: See Comments)1737 ($ Given - Provider: Jose Oliva BOTTOM FILLER)2359 ($ Given - Provider: Jaime Baker BOTTOM FILLER) 0528 ($ Given - Provider: Jaime Baker BOTTOM FILLER)1159 ($ Given - Provider: Natalya Quinteros BOTTOM FILLER)1700 ($ Given - Provider: Natalya Quinteros BOTTOM FILLER)2344 (Canceled Entry - Provider: Jaime Baker RCP) 0551 ($ Given - Provider: Jaime Baker RCP)1136 ($ Given - Provider: Idalia Boles BOTTOM FILLER)1702 ($ Given - Provider: Idalia Boles BOTTOM FILLER) albuterol-ipratropium (Duo-Neb) nebulizer solution 3 mL 3 mL, Inhalation, EVERY 6 HOURS, First dose on Wed03/08/21 at 1800, Until Discontinued 0026 ($ Given - Provider: Kaylee Colunga RCP)0540 ($ Given - Provider: Kaylee Colunga RCP)1229 ($ Given - Provider: Jose Oliva BOTTOM FILLER)1736 ($ Given - Provider: Jose Oliva BOTTOM FILLER)2359 ($ Given - Provider: Jaime Baker BOTTOM FILLER) 0528 ($ Given - Provider: Jaime Baker RCP)1159 ($ Given - Provider: Natalya Quinteros BOTTOM FILLER)1700 ($ Given - Provider: Natalya Quinteros RCP)2344 ($ Given - Provider: Jaime Baker RCP) 0551 ($ Given - Provider: Jaime Baker RCP)1136 ($ Given - Provider: Idalia Boles BOTTOM FILLER)1702 ($ Given - Provider: Idalia Boles RCP) amLODIPine (Norvasc) tablet 10 mg 10 mg, Enteral Tube, DAILY, First dose (after last modification) on Wed03/05/21 at 1300, Until Discontinued 1337 ($ Given - Provider: Willie Coreas RN) 1330 ($ Given - Provider: Alix Mijares RN) 1128 ($ Given - Provider: Willie Coreas RN) artificial tears ophthalmic ointment Each Eye, EVERY 8 HOURS, First dose on Wed02/19/21 at 2200, Until Discontinued 0652 ($ Given - Provider: Fide Rivero RN)1338 ($ Given - Provider: Willie Coreas RN)2123 ($ Given - Provider: Fide Rivero RN) 0603 ($ Given - Provider: Fide Rivero RN)1330 ($ Given - Provider: Alix Mijares RN)2154 ($ Given - Provider: Dino Castillo, AIDA) 0536 ($ Given - Provider: Dino Castillo, RN)1510 ($ Given - Provider: Asif Alexis RN) calcium gluconate 2 g in 100 mL NaCl 0.675% (COMPLETED) 2 g, at 100 mL/hr, Intravenous, ONCE, 1 dose, On Wed03/11/21 at 0345 0503 ($ New Bag/Syringe - Provider: Fide Rivero RN)0603 (Stopped - Provider: Fide Rivero RN) calcium gluconate 2 g in 100 mL NaCl 0.675% (COMPLETED) 2 g, at 100 mL/hr, Intravenous, ONCE, 1 dose, On Wed03/12/21 at 0300 0328 ($ New Bag/Syringe - Provider: Dino Castillo RN)0430 (Stopped - Provider: Dino Castillo, AIDA) chlorhexidine (Peridex) 0.12 % oral solution 15 mL 15 mL, Mouth/Throat, 2 TIMES DAILY, First dose on Wed02/19/21 at 2100, Until Discontinued, Swab oral mucosa for 30 seconds. Do not brush teeth immediately after use. . WASTE DISPOSAL INSTRUCTIONS: Black Bin Disposal required. 0905 ($ Given - Provider: iWllie Coreas, AIDA)2123 ($ Given - Provider: Fide Rivero RN) 0812 ($ Given - Provider: Alxi Mijares RN)2153 ($ Given - Provider: Dino Castillo, AIDA) 0909 ($ Given - Provider: Willie Coreas, AIDA)2100 (Due) docusate sodium (Colace) solution 100 mg 100 mg, Enteral Tube, 2 TIMES DAILY, First dose on Wed02/26/21 at 1130, Until Discontinued, Hold for >2 BMs/day. 0905 ($ Given - Provider: Willie Coreas RN)2122 (Not Administered - Provider: Fide Rivero RN - Reason: See Comments - Comment: Diarrhea twice today) 08 ($ Given - Provider: Alix Mijares RN)215 ($ Given - Provider: Dino Castillo, AIDA) 0909 ($ Given - Provider: Willie Coreas RN)2100 (Due) enoxaparin (Lovenox) injection 40 mg 40 mg, Subcutaneous, EVERY 12 HOURS, First dose on Wed02/21/21 at 1500, Until Discontinued, (for prefilled syringes) do not expel air bubble from the syringe prior to the injection Remind Patient to not rub injection site. Could cause hematoma. 09 ($ Given - Provider: Willie Coreas RN)2122 ($ Given - Provider: Fide Rivero RN) 08 ($ Given - Provider: Alix Mijares RN)2152 ($ Given - Provider: Dino Castillo RN) 0909 ($ Given - Provider: Willie Coreas RN)2100 (Due) guaiFENesin (Robitussin) solution 10 mL 10 mL, Enteral Tube, EVERY 6 HOURS, First dose on Wed03/08/21 at 1800, Until Discontinued 0259 ($ Given - Provider: Fide Rivero RN)0652 ($ Given - Provider: Fide Rivero RN)1123 ($ Given - Provider: Willie Coreas RN)1750 ($ Given - Provider: Willie Coreas RN)2353 ($ Given - Provider: Fide Rivero RN) 0602 ($ Given - Provider: Fide Rivero RN)1127 ($ Given - Provider: Alix Mijares RN)1714 ($ Given - Provider: Alix Mijares RN)2300 ($ Given - Provider: Dino Castillo, AIDA) 0535 ($ Given - Provider: Dino Castillo, AIDA)1128 ($ Given - Provider: Willie Coreas RN)1813 ($ Given - Provider: Delilah Parrish RN) linezolid (Zyvox) 600 mg in 300 ml IVPB 600 mg, at 200 mL/hr, Intravenous, EVERY 12 HOURS, First dose on [place] 03/09/21 at 1100, Until Discontinued, Indication for anti-infective therapy: Documented infection, Site of anti-infective therapy: Intra-abdominal 1129 ($ New Bag/Syringe - Provider: Willie Coreas RN)1338 (Stopped - Provider: Willie Coreas RN)2355 ($ New Bag/Syringe - Provider: Fide Rivero RN) 0205 (Stopped - Provider: Tatianna Toney RN)1059 ($ New Bag/Syringe - Provider: Alix Mijares, AIDA)1229 (Stopped - Provider: Alix Mijares RN)2302 ($ New Bag/Syringe - Provider: Dino Castillo, AIDA) 0034 (Stopped - Provider: Dino Castillo, AIDA)1128 ($ New Bag/Syringe - Provider: Willie Coreas RN)1300 (Stopped - Provider: Willie Coreas RN) pantoprazole (Protonix) injection 40 mg 40 mg, Intravenous, DAILY, First dose on 03/01/21 at 1945, Until Discontinued, For every 40 mg of pantoprazole mix with 10 mL Normal Saline (final concentration = 4 mg/mL). Inject SLOWLY over 2 min. 0906 ($ Given - Provider: Willie Coreas RN) 0812 ($ Given - Provider: Alix Mijares RN) 0909 ($ Given - Provider: Willie Coreas RN) piperacillin - tazobactam (Zosyn) 4.5 g in 0.9% NaCl IV 110 mL IVPB 4.5 g, at 27.5 mL/hr, Intravenous, EVERY 8 HOURS, First dose on Jalyn 03/06/21 at 2045, Until Discontinued, (50 mL bag + 5 mL of bag overfill = 55 mL total volume to be infused), Indication for anti-infective therapy: Documented infection, Site of anti-infective therapy: Intra-abdominal 0204 (Stopped - Provider: Fide Rivero RN)0553 ($ New Bag/Syringe - Provider: Fide Rivero RN)1015 (Stopped - Provider: Willie Coreas RN)1356 ($ New Bag/Syringe - Provider: Willie Coreas RN)1751 (Stopped - Provider: Willie Coreas RN)2145 ($ New Bag/Syringe - Provider: Fide Rivero RN) 0205 (Stopped - Provider: Tatianna Toney RN)0607 ($ New Bag/Syringe - Provider: Fide Rivero RN)1007 (Stopped - Provider: Alix Mijares RN)1336 ($ New Bag/Syringe - Provider: Alix Mijares RN)1736 (Stopped - Provider: Alix Mijares RN)2155 ($ New Bag/Syringe - Provider: Dino Castillo, RN) 0207 (Stopped - Provider: Dino Castillo, AIDA)0543 ($ New Bag/Syringe - Provider: Dino Castillo, AIDA)0950 (Stopped - Provider: Willie Coreas RN)1511 ($ New Bag/Syringe - Provider: Asif Alexis, AIDA)1813 ($ New Bag/Syringe - Provider: Delilah Parrish RN)2159 (Due: Stopped - Provider: Delilah Parrish RN) propranolol (Inderal) tablet 10 mg 10 mg, Enteral Tube, EVERY 8 HOURS, First dose (after last modification) on 03/08/21 at 2200, Until Discontinued, Avoid abrupt withdrawal 0652 ($ Given - Provider: Fide Rivero RN)1337 ($ Given - Provider: Willie Coreas RN)2123 ($ Given - Provider: Fide Rivero RN) 0602 ($ Given - Provider: Fide Rivero RN)1330 ($ Given - Provider: Alix Mijares RN)2153 ($ Given - Provider: Dino Castillo, AIDA) 0535 ($ Given - Provider: Dino Castillo, AIDA)1511 ($ Given - Provider: Asif Alexis, AIDA) psyllium (Metamucil) 28 % packet 1 packet 1 packet, Per G Tube, DAILY, First dose (after last modification) on 03/09/21 at 0900, Until Discontinued 0907 ($ Given - Provider: Willie Coreas RN) 0818 ($ Given - Provider: Alix Mijares RN) 0912 ($ Given - Provider: Willie Coreas, AIDA) senna (Senokot) tablet 8.6 mg 8.6 mg, Enteral Tube, DAILY, First dose on Wed02/26/21 at 1130, Until Discontinued, Hold for >2 BMs/day. 0905 ($ Given - Provider: Willie Coreas, AIDA) 0812 ($ Given - Provider: Alix Mijares RN) 0909 ($ Given - Provider: Willie Coreas RN) sodium chloride (Inhalant) 7 % nebulizer solution 4 mL 4 mL, Inhalation, 2 TIMES DAILY, First dose on 03/08/21 at 2100, Until Discontinued 0027 ($ Given - Provider: Kaylee Colunga BOTTOM FILLER)1229 ($ Given - Provider: Jose Oliva BOTTOM FILLER)2359 ($ Given - Provider: Jaime Baker BOTTOM FILLER) 1159 ($ Given - Provider: Natalya Quinteros BOTTOM FILLER)2343 ($ Given - Provider: Jaime Baker BOTTOM FILLER) 1136 ($ Given - Provider: Idalia Boles BOTTOM FILLER) PRN Medication Order 03/10/2021 03/11/2021 03/12/2021 0.9% NaCl injection 1-10 mL(Linked Group 1) 1-10 mL, Intracatheter, PRN, Other, peripheral line flush, Starting on 02/15/21 at 0304, Until Wed03/12/21 at 2210, Flush peripheral IV catheter with 1-10 mL of normal saline before and after medications and prn to clear blood from the line or to verify patency. acetaminophen (Tylenol) solution 650 mg 650 mg, Enteral Tube, EVERY 4 HOURS PRN, Fever, Mild Pain, Headache, Starting on 03/04/21 at 1135, Until Wed03/12/21 at 2210 artificial tears ophthalmic solution 1 drop 1 drop, Each Eye, EVERY 4 HOURS PRN, Dry Eyes, Starting on 02/16/21 at 1108, Until Wed03/12/21 at 2210 bisacodyl (Dulcolax) suppository 10 mg 10 mg, Rectal, DAILY PRN, Constipation, Starting on Jalyn 02/27/21 at 1116, Until Wed03/12/21 at 2210 labetalol (Normodyne; Trandate) injection 20 mg 20 mg, Intravenous, EVERY 2 HOURS PRN, SBP greater than 160 mmHg, Starting on Wed03/04/21 at 2300, Until Wed03/12/21 at 2210, Max IV dose is 300mg/24 hours. 1126 ($ Given - Provider: Alix Mijares, AIDA)1724 ($ Given - Provider: Alix Mijares RN) 2004 ($ Given - Provider: Melvin Arias RN) lidocaine 1.5% (Xylocaine-MPF)- EPINEPHrine 1:200,000 injection PRN, Starting on Wed03/05/21 at 1610, Until Wed03/12/21 at 2210, Intra-op oxyCODONE (immediate release) (Roxicodone) tablet 10 mg(Linked Group 2) 10 mg, Enteral Tube, EVERY 4 HOURS PRN, Severe Pain, Starting on Wed02/26/21 at 1041, Until Wed03/12/21 at 2210 0259 ($ Given - Provider: Fide Rivero RN)1123 ($ Given - Provider: Willie Coreas RN)1622 ($ Given - Provider: Willie Coreas RN)2140 ($ Given - Provider: Fide Rivero RN) 0603 ($ Given - Provider: Fide Rivero RN)1726 ($ Given - Provider: Alix Mijares RN) 0536 (See Alternative - Provider: Dino Castillo RN)1128 ($ Given - Provider: Willie Coreas RN) oxyCODONE (immediate release) (Roxicodone) tablet 5 mg(Linked Group 2) 5 mg, Enteral Tube, EVERY 4 HOURS PRN, Moderate Pain, Starting on Wed02/26/21 at 1041, Until Wed03/12/21 at 2210 0259 (See Alternative - Provider: Fide Rivero RN)1123 (See Alternative - Provider: Willie Coreas RN)1622 (See Alternative - Provider: Willie Coreas RN)2140 (See Alternative - Provider: Fide Rivero RN) 0603 (See Alternative - Provider: Fide Rivero RN)1726 (See Alternative - Provider: Alix Mijares RN) 7717 ($ Given - Provider: Dino Castillo RN)1612 (See Alternative - Provider: Willie Coreas RN) surgilube gel PRN, Starting on Wed03/05/21 at 1624, Until Wed03/12/21 at 2210, Intra-op Linked Groups Order Group 1: SALINE LOCK, INSERT AND MAINTAIN (CANCELED) Routine, CONTINUOUS, Starting on 02/15/21 at 0315, Until Specified, New collection, Task Completed: Yes And 0.9% NaCl injection 3 mLJump to med 3 mL, Intracatheter, EVERY 8 HOURS, First dose on 02/15/21 at 0600, Until Discontinued, Flush peripheral IV catheter with 3 mL of normal saline every 8 hours. And 0.9% NaCl injection 1-10 mLJump to med 1-10 mL, Intracatheter, PRN, Other, peripheral line flush, Starting on 02/15/21 at 0304, Until Wed03/12/21 at 2210, Flush peripheral IV catheter with 1-10 mL of normal saline before and after medications and prn to clear blood from the line or to verify patency. Group 2: oxyCODONE (immediate release) (Roxicodone) tablet 5 mgJump to med 5 mg, Enteral Tube, EVERY 4 HOURS PRN, Moderate Pain, Starting on Wed02/26/21 at 1041, Until Wed03/12/21 at 2210 Or oxyCODONE (immediate release) (Roxicodone) tablet 10 mgJump to med 10 mg, Enteral Tube, EVERY 4 HOURS PRN, Severe Pain, Starting on Wed02/26/21 at 1041, Until Wed03/12/21 at 2210 documented in this encounter Additional Health Concerns Infection Onset Date Last Indicated Resolved Time COVID-19 Under Investigation 02/15/2021 02/15/2021 02/15/2021 1:54 PM CDT documented as of this encounter Care Teams Congressional Assistant Relationship Specialty Start Date End Date Pepe Martel MD [address] [place] [address] [address] [place] [address] PCP - General 08/14/16 documented as of this encounter
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
--- OUTSIDE RECORDS SUMMARY | 2024-05-23 03:24 | XMS_ITS | Encounter Summary ---
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 0.5 mg $ Given 02/25/2021 12:27 AM CDT 0.5 mg $ Given 02/25/2021 12:19 AM CDT 0.5 mg isolyte-S pH 7.4 infusion Intravenous, CONTINUOUS PRN, Starting on Wed02/24/21 at 2344, Until Wed02/25/21 at 0154, Anesthesia Intra-op $ New Bag/Syringe 02/24/2021 11:44 PM CDT midazolam (Versed) injection Intravenous, PRN, Starting on Wed02/24/21 at 2345, Until Wed02/25/21 at 0154, Anesthesia Intra-op $ Given 02/24/2021 11:45 PM CDT 2 mg propofol (Diprivan) infusion 0-80 mcg/kg/min ? 160.2 [...] 40 mcg/kg/min 38. 45 mL/hr propofol (Diprivan) injection Intravenous, PRN, Starting on Wed02/24/21 at 2345, Until Wed02/25/21 at 0154, Anesthesia Intra-op $ Given 02/24/2021 11:45 PM CDT 50 mg rocuronium (Zemuron) injection Intravenous, PRN, Starting on Wed02/24/21 at 2345, Until Wed02/25/21 at 0154, Anesthesia Intra-op $ Given 02/25/2021 1:15 AM CDT 50 mg $ Given 02/25/2021 12:30 AM CDT 50 mg $ Given 02/24/2021 11:45 PM CDT 50 mg documented in this encounter Care Teams Yard Switcher Relationship Specialty Start Date End Date Pepe Martel MD [address] [place] [id number] PCP - General 08/14/16 documented as of this encounter
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
--- OUTSIDE RECORDS SUMMARY | 2024-05-23 03:24 | XMS_ITS | Encounter Summary ---
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 have personally reviewed and [...] the diaphragm, with its tip outside the yiuyt-ek-henb. Linear airspace opacities are seen in the right upper and mid lung. Findings may be related to compressive atelectasis or pulmonary contusion in the post traumatic setting. There are linear bibasilar opacities, likely representing atelectasis or aspiration in the posttraumatic/post intubated setting. There is no left pleural effusion. No pneumothorax. The cardiomediastinal silhouette is normal. Dictated by Phan Brothers MD (manager residential). Dr. EULA Yao have personally reviewed and [...] 4:32 AM. Dictated by Arlen Abbott MD (manager residential). Najma, Dr. EULA GONZALEZ have personally reviewed [...] is intact. Dictated by Phan Brothers MD (manager residential). Dr. 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 - Continue to monitor #poor [...] 02/25 Heme/onc: Recent Labs Component Name 02/25/21 2256 02/25/21 0236 02/24/21 0028 HGB 12.5 13.7 [...] Fraga MD - 02/25/2021 7:57 AM CDT [facility] Trauma ICU Progress Note Admit: 02/15/2021 2:59 [...] fentanyl, 0-300 mcg/hr, Last Rate: 200 mcg/hr (02/25/21216) niCARdipine, 0-15 mg/hr, Last Rate: 5 mg/hr (02/25/21 07) propofol, 0-80 mcg/kg/min, Last Rate: 30 mcg/kg/min [...] CENTRAL LINE Is&Os: 02/24 701 - 02/25 700 In: 7946.3 [I.V.:6790.4] Out: 4774 [Urine:4415; Drains:359] Date 02/24/21699 - 02/25/2165802/25/21699 - 02/26/21 0659 Shift 0786-8937 9205-9086 24 Hour Total 6836-6789 0292-7417 24 Hour Total INTAKE I.V.(mL/kg/hr) 5225.4(2.7) 1565(0.8) [...] BMP Recent Labs Component Name 02/25/2123502/24/218 02/23/21 0021 POTASSIUM 4.8* 4.2 4.2 CO2 21* 25 [...] not displayed. ABG Recent Labs Component Name 02/25/21 0236 02/24/21 0028 02/23/21 0021 PH 7.40 7.44 7.43 PO2 119* 110* [...] courses to the stomach out of the biflb-qq-jtrn. A right thoracostomy tube is unchanged in position. Small bilateral pleural effusions are suggested. Bibasilar airspace opacities may represent atelectasis and/or airspace disease. There is no pneumothorax. The cardiomediastinal silhouette is partially obscured. Dictated by Alverto Ames MD (manager residential). Dr. NENA Yao have personally reviewed and [...] fracture identified. Dictated by Rico Sawant D.O. (Pet Caregiver) Dr. CHOCO Yao MD have personally reviewed [...] are normal. Dictated by Rico Sawant DO (manager residential). Dr. AFRICA Yao M.D. have personally reviewed [...] coursing below the diaphragm, terminus outside the nweab-ss-hirj. *There is a left subclavian approach central [...] is stable. Dictated by Rico Sawant DO (manager residential). Dr. AFRICA Yao M.D. have personally reviewed [...] below the diaphragm, the segments of the qmwek-mt-crcp. *There is a left subclavian approach central [...] is stable. Dictated by Phan Brothers MD (manager residential). Dr. SUNITA Yao have personally reviewed and [...] is normal. Dictated by Rico Sawant DO (manager residential). IDr. NAOMY MD, [facility] have personally reviewed and interpreted this [...] Dr. Carrion Dictated by Bety Rose MD (manager residential). This report was approved by Bety Rose [...] is normal. Dictated by Rico Sawant DO (manager residential). IDr. OSWALDO have personally reviewed and interpreted [...] Report dictated by Simone Alexander MD, PhD (manager residential). I, Dr. CHOCO JIN MD have personally [...] Report dictated by Simone Alexander MD, PhD (manager residential). I, Dr. NENA CLEMENTE have personally reviewed [...] the diaphragm with the terminus outside the wyqgg-sv-yhqd. *Bilateral apically oriented thoracostomy tubes are reidentified. [...] on 02/17/2021. Dictated by Rico Sawant DO (manager residential). IDr. OSWALDO have personally reviewed and interpreted [...] mucosal disease. Dictated by Uyen Garcia MD (manager residential). Dr. JUNE Yao have personally reviewed and [...] courses to the stomach out of the braor-to-riea. Chest wall and lower neck subcutaneous emphysema is decreased from prior study. Pneumomediastinum is decreased from prior study. Mild left basilar atelectasis is unchanged. Pleural effusion may contribute to opacity. There is no pneumothorax. The cardiomediastinal silhouette is partially obscured. Dictated by Alverto Ames MD (manager residential). Dr. EULA Yao have personally reviewed and [...] findings above. Dictated by Rico Sawant DO (manager residential). Dr. EULA Yao have personally reviewed and [...] the diaphragm, with its tip outside the ssmzh-qa-ctcd. Linear airspace opacities are seen in the right upper and mid lung. Findings may be related to compressive atelectasis or pulmonary contusion in the post traumatic setting. There are linear bibasilar opacities, likely representing atelectasis or aspiration in the posttraumatic/post intubated setting. There is no left pleural effusion. No pneumothorax. The cardiomediastinal silhouette is normal. Dictated by Phan Brothers MD (manager residential). Dr. EULA Yao have personally reviewed and [...] 4:32 AM. Dictated by Arlen Abbott MD (manager residential). Najma, Dr. EULA GONZALEZ have personally reviewed [...] is intact. Dictated by Phan Brothers MD (manager residential). I, Dr. EULA GONZALEZ have personally reviewed [...] Fraga MD - 02/24/2021 7:07 AM CDT [facility] Trauma ICU Progress Note Admit: 02/15/2021 2:59 [...] fentanyl, 0-300 mcg/hr, Last Rate: 300 mcg/hr (02/24/21334) niCARdipine, 0-15 mg/hr, Last Rate: 5 mg/hr (02/24/21623) propofol, 0-80 mcg/kg/min, Last Rate: 45 mcg/kg/min (02/24/21638) TPN - CENTRAL LINE - ADULT - [...] DAY 1 Is&Os: 02/23 07 - 02/24 0700 In: 2406.4 [I.V.:1924.8] Out: 3095 [Urine:1175; Drains:1920] Date 02/23/21699 - 02/24/2165802/24/21699 - 02/25/21 0659 Shift 1637-3334 1933-3293 24 Hour Total 9924-4195 8644-0965 24 Hour Total INTAKE I.V.(mL/kg/hr) 4055.7(2.1) 4055.7(1) [...] abnormalities Labs: CBC Recent Labs Component Name 02/24/212702/23/212002/21/21 2312 WBC 13.9* 13.5* 14.5* HGB 11.8* 12.0 [...] courses to the stomach out of the tsiyh-md-asmu. A right thoracostomy tube is unchanged in position. Small bilateral pleural effusions are suggested. Bibasilar airspace opacities may represent atelectasis and/or airspace disease. There is no pneumothorax. The cardiomediastinal silhouette is partially obscured. Dictated by Alverto Ames MD (manager residential). Dr. NENA Yao have personally reviewed and [...] fracture identified. Dictated by Rico Sawant D.O. (Pet Caregiver) Dr. CHOCO Yao MD have personally reviewed [...] are normal. Dictated by Rico Sawant DO (manager residential). Dr. AFRICA Yao M.D. have personally reviewed [...] coursing below the diaphragm, terminus outside the nubfz-cg-ukkj. *There is a left subclavian approach central [...] is stable. Dictated by Rico Sawant DO (manager residential). Dr. AFRICA Yao M.D. have personally reviewed [...] below the diaphragm, the segments of the zllek-lj-brmp. *There is a left subclavian approach central [...] is stable. Dictated by Phan Brothers MD (manager residential). Dr. SUNITA Yao have personally reviewed and [...] is normal. Dictated by Rico Sawant DO (manager residential). I, Dr. NAOMY LAZO MD, FRCR have [...] Dr. Carrion Dictated by Bety Rose MD (manager residential). This report was approved by Bety Rose [...] is normal. Dictated by Rico Sawant DO (manager residential). I, Dr. OSWALDO CLEMONS have personally reviewed [...] Report dictated by Simone Alexander MD, PhD (manager residential). I, Dr. CHOCO JIN MD have personally [...] Report dictated by Simone Alexander MD, PhD (manager residential). Dr. NENA Yao have personally reviewed and [...] the diaphragm with the terminus outside the opdmt-mr-oscf. *Bilateral apically oriented thoracostomy tubes are reidentified. [...] on 02/17/2021. Dictated by Rico Sawant DO (manager residential). Dr. OSWALDO Yao have personally reviewed and [...] mucosal disease. Dictated by Uyen Garcia MD (manager residential). IDr. JUNE have personally reviewed and interpreted [...] courses to the stomach out of the wyyvj-zc-gdhh. Chest wall and lower neck subcutaneous emphysema is decreased from prior study. Pneumomediastinum is decreased from prior study. Mild left basilar atelectasis is unchanged. Pleural effusion may contribute to opacity. There is no pneumothorax. The cardiomediastinal silhouette is partially obscured. Dictated by Alverto Ames MD (manager residential). Dr. EULA Yao have personally reviewed and [...] findings above. Dictated by Rico Sawant DO (manager residential). Dr. EULA Yao have personally reviewed and [...] the diaphragm, with its tip outside the kfdtz-bo-ddyw. Linear airspace opacities are seen in the right upper and mid lung. Findings may be related to compressive atelectasis or pulmonary contusion in the post traumatic setting. There are linear bibasilar opacities, likely representing atelectasis or aspiration in the posttraumatic/post intubated setting. There is no left pleural effusion. No pneumothorax. The cardiomediastinal silhouette is normal. Dictated by Phan Brothers MD (manager residential). Dr. EULA Yao have personally reviewed and [...] 4:32 AM. Dictated by Arlen Abbott MD (manager residential). Najma, Dr. EULA GONZALEZ have personally reviewed [...] is intact. Dictated by Phan Brothers MD (manager residential). I, Dr. EULA GONZALEZ have personally reviewed [...] Fraga MD - 02/23/2021 6:23 AM CDT [facility] Trauma ICU Progress Note Admit: 02/15/2021 2:59 [...] , Last Rate: 125 mL/hr at 02/23/21 0608 dianeal pd-2 dextrose 2.5%, fentanyl, 0-300 mcg/hr, Last Rate: 300 mcg/hr (02/23/21 0536) propofol, 0-80 mcg/kg/min, Last Rate: 35 mcg/kg/min (02/23/21 0609) TPN - CENTRAL LINE - ADULT - CLINIMIX - DAY 1, TPN - CENTRAL LINE - ADULT - CLINIMIX - DAY 1, , Last Rate: 42.13 mL/hr at 02/22/21 2155 PRN Medications: 0.9% NaCl, 1-10 mL, PRN [...] - CLINIMIX - DAY 1 Is&Os: 02/22 07 - 02/23 07 In: 1358.1 [I.V.:1328.1] Out: 2980 [Urine:1230; Drains:1750] Date 02/22/21699 - 02/23/2165802/23/21699 - 02/24/21 0659 Shift 9693-8831 3083-2769 24 Hour Total 9196-7195 3808-6449 24 Hour Total INTAKE I.V.(mL/kg/hr) 1328.1(0.7) 1328.1 Tube 30 30 Shift Total(mL/kg) 1328.1(8.3) 30(0.2) 1358.1(8.5) OUTPUT Urine(mL/kg/hr) 860(0.4) 370 1230 Drains 614 187 8961 Shift Total(mL/kg) 1785(11.1) 1195(7.5) 2980(18.6) NET -456.9 [...] abnormalities Labs: CBC Recent Labs Component Name 02/23/212002/21/212 02/20/21 2326 WBC 13.5* 14.5* 14.6* HGB 12.0 13.7 15.0 HCT 38.1 41.8 46.7 PLTCOUNT 403* 374 392 BMP Recent Labs Component Name 02/23/212002/21/212 02/20/21 2326 POTASSIUM 4.2 4.3 4.0 CO2 30* 22 26 BUN 10 15 12 CREATININE 0.84 1.13 0.75 GLUCOSE 145* 126* 106 CALCIUM 8.4 8.5 8.8 PHOS 3.9 3.5 4.6 LFTs Recent Labs Component Name 02/15/21 1040 AST 96* ALT 78* ALKPHOS 97 Coags Recent Labs Component Name 02/23/21 00202/21/212 02/20/21 2326 02/15/21 2234 02/15/21 0642 02/15/21 0308 PT 14.4 15.2* 14.8 - 13.8 - INR 1.2 1.2 1.2 - 1.1 - PTT - - - - 26.9 23.5 - = values in this interval not displayed. ABG Recent Labs Component Name 02/23/21 00202/22/21 0317 02/21/21 2312 PH 7.43 7.41 7.60* PO2 110* 94 [...] fracture identified. Dictated by Rico Sawant D.O. (Pet Caregiver) Dr. CHOCO Yao MD have personally reviewed [...] are normal. Dictated by Rico Sawant DO (manager residential). Dr. AFRICA Yao M.D. have personally reviewed [...] coursing below the diaphragm, terminus outside the xmljs-co-olnr. *There is a left subclavian approach central [...] is stable. Dictated by Rico Sawant DO (manager residential). IDr. AFRICA M.D. have personally reviewed and [...] below the diaphragm, the segments of the satmk-ie-tego. *There is a left subclavian approach central [...] is stable. Dictated by Phan Brothers MD (manager residential). Dr. SUNITA Yao have personally reviewed and [...] is normal. Dictated by Rico Sawant DO (manager residential). Dr. NAOMY Yao MD, FR have personally reviewed and interpreted [...] Dr. Carrion Dictated by Bety Rose MD (manager residential). This report was approved by Bety Rose [...] is normal. Dictated by Rico Sawant DO (manager residential). IDr. OSWALDO have personally reviewed and interpreted this examination/study. This report was electronically signed by OSWALDO JOYCE on 02/19/2021 3:43 PM . XR CHEST [...] Report dictated by Simone Alexander MD, PhD (manager residential). I, Dr. CHOCO JIN MD have personally [...] Report dictated by Simone Alexander MD, PhD (manager residential). I, Dr. NENA CLEMENTE have personally reviewed [...] the diaphragm with the terminus outside the waojx-zg-djdm. *Bilateral apically oriented thoracostomy tubes are reidentified. [...] on 02/17/2021. Dictated by Rico Sawant DO (manager residential). Najma, Dr. OSWALDO CLEMONS have personally reviewed and [...] mucosal disease. Dictated by Uyen Garcia MD (manager residential). I, Dr. JUNE MADRID have personally reviewed [...] courses to the stomach out of the cfovv-rn-zbuf. Chest wall and lower neck subcutaneous emphysema is decreased from prior study. Pneumomediastinum is decreased from prior study. Mild left basilar atelectasis is unchanged. Pleural effusion may contribute to opacity. There is no pneumothorax. The cardiomediastinal silhouette is partially obscured. Dictated by Alverto Ames MD (manager residential). I, Dr. EULA MHAPSEKAR have personally reviewed [...] findings above. Dictated by Rico Sawant DO (manager residential). Dr. EULA Yao have personally reviewed and [...] the diaphragm, with its tip outside the tfifp-fz-eylw. Linear airspace opacities are seen in the right upper and mid lung. Findings may be related to compressive atelectasis or pulmonary contusion in the post traumatic setting. There are linear bibasilar opacities, likely representing atelectasis or aspiration in the posttraumatic/post intubated setting. There is no left pleural effusion. No pneumothorax. The cardiomediastinal silhouette is normal. Dictated by Phan Brothers MD (manager residential). Dr. EULA Yao have personally reviewed and [...] 4:32 AM. Dictated by Arlen Abbott MD (manager residential). Dr. EULA Yao have personally reviewed and [...] is intact. Dictated by Phan Brothers MD (manager residential). Dr. EULA Yao have personally reviewed and [...] Fraga MD - 02/22/2021 5:14 AM CDT [facility] Trauma ICU Progress Note Admit: 02/15/2021 2:59 [...] Date 02/21/21699 - 02/22/2165802/22/21699 - 02/23/21658 Shift 0290-2318 2638-2640 24 Hour Total 9580-2030 7172-0409 24 Hour Total INTAKE I.V.(mL/kg/hr) 1643.3(0.9) 1709.9 [...] not displayed. ABG Recent Labs Component Name 02/22/2131602/21/21231102/20/212325 PH 7.41 7.60* 7.41 PO2 94 185* [...] fracture identified. Dictated by Rico Sawant D.O. (Pet Caregiver) Dr. CHOCO Yao MD have personally reviewed [...] are normal. Dictated by Rico Sawant DO (manager residential). Dr. AFRICA Yao M.D. have personally reviewed [...] coursing below the diaphragm, terminus outside the zivqo-jv-ftlp. *There is a left subclavian approach central [...] is stable. Dictated by Rico Sawant DO (manager residential). Dr. AFRICA aYo M.D. have personally reviewed and interpreted this [...] below the diaphragm, the segments of the fsiig-fn-sdgr. *There is a left subclavian approach central [...] is stable. Dictated by Phan Brothers MD (manager residential). Dr. SUNITA Yao have personally reviewed and [...] is normal. Dictated by Rico Sawant DO (manager residential). I, Dr. NAOMY LAZO MD, FR have [...] Dr. Carrion Dictated by Bety Rose MD (manager residential). This report was approved by Bety Rose [...] is normal. Dictated by Rico Sawant DO (manager residential). I, Dr. OSWALDO CLEMONS have personally reviewed [...] Report dictated by Simone Alexander MD, PhD (manager residential). I, Dr. CHOCO JIN MD have personally [...] Report dictated by Simone Alexander MD, PhD (manager residential). Dr. NENA Yao have personally reviewed and [...] the diaphragm with the terminus outside the nqrwc-ma-kanf. *Bilateral apically oriented thoracostomy tubes are reidentified. [...] on 02/17/2021. Dictated by Rico Sawant DO (manager residential). Dr. OSWALDO Yao have personally reviewed and [...] mucosal disease. Dictated by Uyen Garcia MD (manager residential). Dr. JUNE Yao have personally reviewed and [...] courses to the stomach out of the hpnbw-nw-phap. Chest wall and lower neck subcutaneous emphysema is decreased from prior study. Pneumomediastinum is decreased from prior study. Mild left basilar atelectasis is unchanged. Pleural effusion may contribute to opacity. There is no pneumothorax. The cardiomediastinal silhouette is partially obscured. Dictated by Alverto Ames MD (manager residential). Dr. EULA Yao have personally reviewed and [...] findings above. Dictated by Rico Sawant DO (manager residential). Dr. EULA Yao have personally reviewed and [...] the diaphragm, with its tip outside the lkbip-pm-wnoe. Linear airspace opacities are seen in the right upper and mid lung. Findings may be related to compressive atelectasis or pulmonary contusion in the post traumatic setting. There are linear bibasilar opacities, likely representing atelectasis or aspiration in the posttraumatic/post intubated setting. There is no left pleural effusion. No pneumothorax. The cardiomediastinal silhouette is normal. Dictated by Phan Brothers MD (manager residential). Dr. EULA Yao have personally reviewed and [...] 4:32 AM. Dictated by Arlen Abbott MD (manager residential). Najma, Dr. EULA GONZALEZ have personally reviewed [...] is intact. Dictated by Phan Brothers MD (manager residential). I, Dr. EULA GONZALEZ have personally reviewed [...] clinical nutrition guidelines. Estimated Energy Needs: KCAL: 9894-3700 (11-14kcla/kg ABW) Protein (g): 129 (2.0g/kg IBW) Fluid (ml): 1 ml/kcal Needs based on: Kcal/kg- (Comment) (ibw 64.5kg ) Recommended Access Route: [id number] * Sonali Fraga MD - 02/21/2021 5:18 AM CDT [facility] Trauma ICU Progress Note Admit: 02/15/2021 2:59 [...] 02/20/21699 - 02/21/2165802/21/21699 - 02/22/21 0659 Shift 4916-0256 5575-0092 24 Hour Total 8830-7416 9981-8866 24 Hour Total INTAKE I.V.(mL/kg/hr) 1591.5(0.8) 1343 [...] abnormalities Labs: CBC Recent Labs Component Name 02/20/21232502/19/21233502/18/21 230 WBC 14.6* 13.2* 11.9* HGB 15.0 13.8 [...] ALKPHOS 97 Coags Recent Labs Component Name 02/20/21232502/19/21233502/18/21 23002/15/214 02/15/21 0642 02/15/21 0308 PT 14.8 14.1 14.1 - 13.8 - INR 1.2 1.1 1.1 - 1.1 - PTT - - - - 26.9 23.5 - = values in this interval not displayed. ABG Recent Labs Component Name 02/20/21232502/20/2130602/19/21 233 PH 7.41 7.41 7.42 PO2 131* 88 [...] coursing below the diaphragm, terminus outside the imgla-fq-bjyw. *There is a left subclavian approach central [...] is stable. Dictated by Rico Sawant DO (manager residential). Dr. AFRICA Yao M.D. have personally reviewed [...] below the diaphragm, the segments of the jevbb-bq-hcna. *There is a left subclavian approach central [...] is stable. Dictated by Phan Brothers MD (manager residential). Dr. SUNITA Yao have personally reviewed and [...] is normal. Dictated by Rico Sawant DO (manager residential). I, Dr. NAOMY LAZO MD, [facility] have personally reviewed and interpreted this [...] Dr. Carrion Dictated by Bety Rose MD (manager residential). This report was approved by Bety Rose [...] is normal. Dictated by Rico Sawant DO (manager residential). I, Dr. OSWALDO CLEMONS have personally reviewed [...] Report dictated by Simone Alexander MD, PhD (manager residential). I, Dr. CHOCO JIN MD have personally [...] Report dictated by Simone Alexander MD, PhD (manager residential). I, Dr. NENA CLEMENTE have personally reviewed [...] the diaphragm with the terminus outside the lgfyk-aj-mhek. *Bilateral apically oriented thoracostomy tubes are reidentified. [...] on 02/17/2021. Dictated by Rico Sawant DO (manager residential). IDr. OSWALDO have personally reviewed and interpreted [...] mucosal disease. Dictated by Uyen Garcia MD (manager residential). IDr. JUNE have personally reviewed and interpreted [...] courses to the stomach out of the foklx-kt-hyev. Chest wall and lower neck subcutaneous emphysema is decreased from prior study. Pneumomediastinum is decreased from prior study. Mild left basilar atelectasis is unchanged. Pleural effusion may contribute to opacity. There is no pneumothorax. The cardiomediastinal silhouette is partially obscured. Dictated by Alverto Ames MD (manager residential). Dr. EULA Yao have personally reviewed and [...] findings above. Dictated by Rico Sawant DO (manager residential). Dr. EULA Yao have personally reviewed and [...] the diaphragm, with its tip outside the jazsx-zv-hsoy. Linear airspace opacities are seen in the right upper and mid lung. Findings may be related to compressive atelectasis or pulmonary contusion in the post traumatic setting. There are linear bibasilar opacities, likely representing atelectasis or aspiration in the posttraumatic/post intubated setting. There is no left pleural effusion. No pneumothorax. The cardiomediastinal silhouette is normal. Dictated by Phan Brothers MD (manager residential). Dr. EULA Yao have personally reviewed and [...] 4:32 AM. Dictated by Arlen Abbott MD (manager residential). Najma, Dr. EULA GONZALEZ have personally reviewed [...] is intact. Dictated by Phan Brothers MD (manager residential). Najma, Dr. EULA GONZALEZ have personally reviewed [...] call Noemi for changes. Sister Noemi Tyler [phone] Aunt Mainor [phone] Problem: Pain/Discomfort Goal: Patient exhibits reduced pain/discomfort [...] Mello MD - 02/20/2021 2:24 PM CDT [facility] Stroke Progress Note Jaime Tyler Age: [age] [...] evidence of hypoxic ischemic injury. * Sonia Doanto - 02/20/2021 12:24 PM CDT Hospital Coder followed up with pt's mother to see if she would benefit from pastoral care support. Shira, pt's mother, communicated that she needed to call her daughter and did not need pastoral care visit at this time. Hospital Coder encouraged her to let her know if she would like a visit in the future. Pastoral care will continue to follow. Please have pastoral care contacted if a need/arises. Martha Storyaret Tanmay 02/20/2021 12:26 PM * Alverto Godoy MD - 02/20/2021 11:37 AM CDT Patient seen and examined this AM. Discussed with trauma ICU team. Previous results, notes and imaging reviewed. OK to proceed to OR today for re- exploratory laparotomy, possible closure, possible abdominal wound vac. Alverto Godoy MD 02/20/2021 * Sonali Fraga MD - 02/20/2021 6:40 AM CDT [facility] Trauma ICU Progress Note Admit: 02/15/2021 2:59 [...] Plan to return to OR on 02/19. 10/ - Afebrile, remains hypertensive. Intubated and sedated, [...] [Urine:2125; Drains:1935] Date 02/19/21699 - 02/20/2165802/20/21699 - 02/21/21658 Shift 5288-2136 9227-0699 24 Hour Total 4720-3910 9869-1901 24 Hour Total INTAKE I.V.(mL/kg/hr) 558.1(0.3) 2538.7 [...] ALKPHOS 97 Coags Recent Labs Component Name 02/19/21 2336 02/18/21 2303 02/18/21 0004 02/15/21 2234 02/15/21 0642 02/15/21 0308 [...] is normal. Dictated by Rico Sawant DO (manager residential). I, Dr. OSWALDO CLEMONS have personally reviewed [...] Report dictated by Simone Alexander MD, PhD (manager residential). I, Dr. CHOCO JIN MD have personally [...] Report dictated by Simone Alexander MD, PhD (manager residential). I, Dr. NENA CLEMENTE have personally reviewed [...] the diaphragm with the terminus outside the hliew-mq-mlxg. *Bilateral apically oriented thoracostomy tubes are reidentified. [...] on 02/17/2021. Dictated by Rico Sawant DO (manager residential). I, Dr. OSWALDO CLEMONS have personally reviewed [...] mucosal disease. Dictated by Uyen Garcia MD (manager residential). IDr. JUNE have personally reviewed and interpreted [...] courses to the stomach out of the kpmht-gv-nhdb. Chest wall and lower neck subcutaneous emphysema is decreased from prior study. Pneumomediastinum is decreased from prior study. Mild left basilar atelectasis is unchanged. Pleural effusion may contribute to opacity. There is no pneumothorax. The cardiomediastinal silhouette is partially obscured. Dictated by Alverto Ames MD (manager residential). Dr. EULA Yao have personally reviewed and [...] findings above. Dictated by Rico Sawant DO (manager residential). Dr. EULA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 There are low bilateral lung volumes with associated bronchovascular crowding. There are patchy linear bibasilar opacities, likelyrepresenting atelectasis. There is no pleural effusion or pneumothorax. The cardiomediastinal silhouette is stable. Dictated by Phan Brothers MD (manager residential). Dr. NENA Yao have personally reviewed and interpreted this examination/study. This report was electronically signed by NENA CLEMENTE on 03/09/2021 11:30 AM . Fredy Felipe MD DIAGNOSTIC IMAGING O RDERABLES * (ABNORMAL) DIFFERENTIAL MANUAL (03/07/2021 11:57 PM CDT) WBC (corrected for NRBC) 22.8 10? 3 /uL 03/08/2021 2:26 AM CDT [facility] Total Cell Count 100 03/08/2021 2:26 AM CDT [facility] Neutrophils Absolute Manual 18.24(H) 1.60 - 7.00 10? 3 /uL 03/08/2021 2:26 AM [facility] Comment:(BANDS+SEGS) x WBC = NEUT # (ANC) Lymphocyte Absolute Manual 1.60 1.10 - 3.90 10? 3 /uL 03/08/2021 2:26 AM [facility] Monocytes Absolute Manual 1.60(H) 0.26 - 1.07 10? 3 /uL 03/08/2021 2:26 AM [facility] Eosinophils Absolute Manual 0.68(H) 0.00 - 0.47 10? 3 /uL 03/08/2021 2:26 AM [facility] Basophil Absolute Manual 0.23(H) 0.00 - 0.08 10? 3 /uL 03/08/2021 2:26 AM [facility] Neutrophil % Manual 80(H) 35 - 70 % 03/08/2021 2:26 AM [facility] Lymphocyte % Manual 7(L) 20 - 43 % 03/08/2021 2:26 AM [facility] Monocytes % Manual 7 5 - 13 % 03/08/2021 2:26 AM [facility] Eosinophils % Manual 3 0 - 6 % 03/08/2021 2:26 AM [facility] Basophils % Manual 1 0 - 2 % 03/08/2021 2:26 AM [facility] Atypical Lymphocyte % Manual 2(H) 0 % 03/08/2021 2:26 AM [facility] Platelet Estimate Adequate Adequate 03/08/2021 2:26 AM [facility] RBC Morphology Normal 03/08/2021 2:26 AM [facility] Blood BLOOD SPECIMEN / Unknown Venipuncture / Unknown 03/07/2021 11:57 PM CDT 03/08/2021 12:23 AM [facility] Fredy Felipe MD LAB - HEMATOLOGY ORD ERABLES [facility] [address] [place] [address], [facility] [phone] * (ABNORMAL) VANCOMYCIN LEVEL TROUGH (03/07/2021 11:57 PM CDT) Pathologist [facility] [place] Vancomycin Trough 22.7(H) 10.0 - 20.0 ug/mL 03/08/2021 12:47 AM [facility] Blood BLOOD SPECIMEN / Unknown Venipuncture / Unknown 03/07/2021 11:57 PM CDT 03/08/2021 12:23 AM CDT [facility] - 03/08/2021 12:47 AM CDT See institution protocol. Fredy Felipe MD LAB - CHEMISTRY JOSE ENRIQUE VELA [facility] Organization Address City/State/ZIP Co de Phone Number [facility] [address] [place] [address], [facility] [phone] * (ABNORMAL) CBC W AUTO DIFFERENTIAL (03/07/2021 11:57 PM CDT) Pathologist [facility] [place] WBC 22.8(H) 3.5 - 10.5 10? 3 /uL 03/08/2021 12:29 AM [facility] RBC 3.55(L) 4.30 - 5.70 10? 6 /uL 03/08/2021 12:29 AM [facility] Hemoglobin 9.7(L) 12.0 - 17.6 g/dL 03/08/2021 12:29 AM [facility] Hematocrit 30.4(L) 35.2 - 51.7 % 03/08/2021 12:29 AM [facility] MCV 85.6 80.7 - 98.3 fL 03/08/2021 12:29 AM [facility] MCH 27.3 26.7 - 34.0 pg 03/08/2021 12:29 AM [facility] MCHC 31.9 30.8 - 35.9 g/dL 03/08/2021 12:29 AM [facility] Platelet Count 535(H) 150 - 400 10? 3 /uL 03/08/2021 12:29 AM [facility] RDW-SD 43.0 36.0 - 50.0 fL 03/08/2021 12:29 AM [facility] RDW-CV 13.6 11.2 - 14.8 % 03/08/2021 12:29 AM [facility] MPV 9.4 9.4 - 12.9 fL 03/08/2021 12:29 AM [facility] nRBC Absolute 0.00 0 10? 3 /uL 03/08/2021 12:29 AM [facility] nRBC Auto 0.0 0 /100 WBC 03/08/2021 12:29 AM [facility] Blood BLOOD SPECIMEN / Unknown Venipuncture / Unknown 03/07/2021 11:57 PM CDT 03/08/2021 12:23 AM T Fredy Felipe MD LAB - HEMATOLOGY ORD ERABLES [facility] [address] [place] [address], [facility] [phone] * (ABNORMAL) BASIC METABOLIC PANEL (CALCIUM TOTAL) (03/07/2021 11:57 PM CDT) BUN 35(H) 7 - 26 mg/dL 03/08/2021 12:49 AM [facility] Creatinine 1.60(H) 0.71 - 1.16 mg/dL 03/08/2021 12:49 AM [facility] Sodium 144 136 - 145 mmol/L 03/08/2021 12:49 AM [facility] Potassium 4.0 3.5 - 4.5 mmol/L 03/08/2021 12:49 AM [facility] Chloride 113(H) 98 - 107 mmol/L 03/08/2021 12:49 AM [facility] CO2 20(L) 22 - 29 mmol/L 03/08/2021 12:49 AM [facility] Glucose 132(H) 70 - 115 mg/dL 03/08/2021 12:49 AM [facility] Calcium 9.1 8.4 - 10.2 mg/dL 03/08/2021 12:49 AM [facility] Anion Gap 15 8 - 18 03/08/2021 12:49 AM [facility] BUN/Creatinine Ratio 22 7 - 23 03/08/2021 12:49 AM [facility] Osmolality Calculated 308(H) 270 - 300 mOsm/kg 03/08/2021 12:49 AM [facility] eGFR by CKD-EPI 55(L) >=90 mL/min/1.7 3 m2 03/08/2021 12:49 AM [facility] Blood BLOOD SPECIMEN / Unknown Venipuncture / Unknown 03/07/2021 11:57 PM CDT 03/08/2021 12:23 AM T Fredy Felipe MD LAB - CHEMISTRY JOSE ENRIQUE VELA [facility] Organization Address City/State/ZIP Co de Phone Number [facility] [address] [place] [address], [facility] [phone] * (ABNORMAL) BLOOD GASES ART + COOX PANEL (03/07/2021 11:57 PM T) pH Arterial 7.50(H) 7.35 - 7.45 pH 03/08/2021 12:17 AM [facility] pO2 Arterial 183(H) 80 - 100 mmHg 03/08/2021 12:17 AM [facility] pCO2 Arterial 25(L) 35 - 45 mmHg 12:17 AM [facility] HCO3 Arterial 20 20 - 30 mmol/l 03/08/2021 12:17 AM [facility] BE Arterial -2.6(L) -2.0 - 2.0 mmol/L 03/08/2021 12:17 AM [facility] Oxyhemoglobin Arterial 96.5 % 03/08/2021 12:17 AM [facility] Dexoyhemoglobin (HHB) % 0.0 % 03/08/2021 12:17 AM [facility] Methemoglobin 1.1 0.0 - 2.0 % 03/08/2021 12:17 AM [facility] Carboxyhemoglobin 2.4(H) 0.0 - 2.0 % 2020 12:17 AM CDT [facility] O2 Content Arterial 14.5 Interpret within clinical context mg/dL 03/08/2021 12:[address] [facility] Hemoglobin by COOX 10.4(L) 12.0 - 17.6 g/dL 03/08/2021 12:[address] [facility] O2 Saturation Arterial 100 90 - 100 % 03/08/2021 12:[address] [facility] FI O2 Arterial 21.0 % 03/08/2021 12:[address] [facility] Blood, arterial ARTERIAL BLOOD SPECIMEN / Unknown Arterial Puncture / Unknown 03/07/2021 11:57 PM CDT 03/08/2021 12:[address] [facility] - 03/08/2021 12:17 AM CDT Carboxyhemoglobin Normal Concentration: Non-smokers: 0-2%; Smokers: 0-9%; Toxic: >20% Fredy Felipe MD LAB - BLOOD GASES OR DERABLES Performing Organization Address [facility] Co de Phone Number [address] [address] [phone] * (ABNORMAL) PT-INR [facility] (03/07/2021 11:57 PM CDT) PT 16.5(H) 12.1 - 14.8 Seconds 03/08/2021 12:[address] [facility] INR 1.4 See Comment 03/08/2021 12:37 AM [facility] Comment:The suggested therap eutic range for standard coumadin (warfarin) therapy is an INR of 2.0-3.0. For high-risk patients (Mechanical Mitral Valve Prosthesis, etc.), the suggested prophylactic therapeutic range is an INR of 2.5-3.5. Blood BLOOD SPECIMEN / Unknown Venipuncture / Unknown 03/07/2021 11:57 PM CDT 03/08/2021 12:20 AM CDT Fredy Felipe MD LAB - COAGULATION OR DERABLES Performing Organization Address [facility] Co de Phone Number [address] [address], [facility] [phone] * PHOSPHORUS BLOOD (03/07/2021 11:57 PM CDT) Phosphorus 3.0 2.8 - 5.1 mg/dL 03/08/2021 12:[address] [facility] Blood BLOOD SPECIMEN / Unknown Venipuncture / Unknown 03/07/2021 11:57 PM CDT 03/08/2021 12:23 AM CDT Fredy Felipe MD LAB - CHEMISTRY JOSE ENRIQUE VELA [address] [address], [facility] [phone] * MAGNESIUM BLOOD (03/07/2021 11:57 PM CDT) Magnesium 2.1 1.6 - 2.6 mg/dL 03/08/2021 12:[address] [facility] Blood BLOOD SPECIMEN / Unknown Venipuncture / Unknown 03/07/2021 11:57 PM CDT 03/08/2021 12:23 AM CDT Fredy Felipe MD LAB - CHEMISTRY JOSE ENRIQUE VELA [address] [address], [facility] [phone] * (ABNORMAL) CALCIUM IONIZED WHOLE BLOOD (03/07/2021 11:57 PM CDT) Calcium Ionized 1.15 mmol/L 03/08/2021 12:17 AM CDT [facility] pH 7.49(H) 7.35 - 7.45 pH 03/08/2021 12:17 AM CDT [facility] Ionized Calcium pH Adjusted 1.19 1.19 - 1.34 mmol/L 03/08/2021 12:17 AM CDT [facility] Blood BLOOD SPECIMEN / Unknown Venipuncture / Unknown 03/07/2021 11:57 PM CDT 03/08/2021 12:11 AM CDT Fredy Felipe MD LAB - CHEMISTRY JOSE ENRIQUE VELA [facility] Organization Address City/State/ZIP Co de Phone Number [facility] [address] [place] [address], [facility] [phone] * XR CHEST 1VW PORTABLE (03/07/2021 4:51 AM CDT) Anatomical Region Laterality Modality Chest Radiographic Sera ging 03/07/2021 10:2 2 AM CDT Impressions 03/07/2021 2:51 PM CDT IMPRESSION: 1.Mild right midlung and lower lung atelectasis. Report drafted by Keo Hernandez M.D. (resident) Dr. NAOMY Yao MD, [facility] have personally reviewed and interpreted this examination/study. This report was electronically signed by NOAMY LAZO MD, FRCR ??on 03/07/2021 2:51 PM . Narrative 03/07/2021 [...] Hernandez M.D. (resident) Dr. NAOMY Yao MD, FRCR have personally reviewedand interpreted this examination/study. This report was electronically signed by NAOMY LAZO MD, FRCR on 03/07/2021 2:51 PM . Fredy Felipe MD DIAGNOSTIC IMAGING O RDERABLES * (ABNORMAL) CULTURE ANAEROBE (03/07/2021 2:41 AM CDT) Culture Heavy Prevotella bivia(A) [place] 03/11/2021 9:14 AM CDT [facility] Comment:Beta-lactamase posit elvira Microbiology ABDOMINAL ABSCESS / Unknown Collection / Unknown 03/07/2021 2:41 AM CDT 03/07/2021 2:45 AM CDT Dino Hudson PA-C LAB - MICROBIOLOG Y ORDERABLES Performing Organization Address [facility] Co de Phone Number [facility] [address] [place] [phone] * CULTURE FUNGUS OTHER+FUNGUS SMEAR (03/07/2021 2:41 AM CDT) Culture No fungus isolated [place] 03/31/2021 9:21 AM HAND MOLDER [facility] Fungus Stain No yeast or hyphae seen 03/31/2021 9:21 AM HAND MOLDER [facility] Microbiology ABDOMINAL ABSCESS / Unknown Collection / Unknown 03/07/2021 2:41 AM CDT 03/07/2021 2:45 AM CDT Dino MORIN-Tal LAB - MICROBIOLOG Y ORDERABLES Performing Organization Address [facility] Co de Phone Number [facility] [address] [place] [phone] * (ABNORMAL) CULTURE WOUND+GRAM STAIN (03/07/2021 2:41 AM CDT) Culture Heavy Staphylococcus lugdunensis(A) [place] 03/10/2021 7:16 AM CDT [facility] MICROBI[facility] Culture Heavy Klebsiella (formerly Enterobacter) aerogenes(A) [place] 03/10/2021 7:16 AM CDT [facility]CRO[facility] Culture Heavy Staphylococcus epidermidis(A) 03/10/2021 7:16 AM CDT [facility]CRO[facility] Gram Stain Light Polymorphonuclear cells 03/10/2021 7:16 AM CDT [facility] Gram Stain Light Gram-positive cocci in clusters 03/10/2021 7:16 AM CDT [facility] Gram Stain Moderate Gram-positive cocci pairs and chains 03/10/2021 7:16 AM CDT [facility]CRO[facility] Microbiology ABDOMINAL ABSCESS / Unknown Collection / Unknown 03/07/2021 2:41 AM CDT 03/07/2021 2:45 AM CDT [facility] MICROBIOLOGY - 03/10/2021 7:16 AM CDT Enterobacter, [...] Hudson PA-C LAB - MICROBIOLOG Y ORDERABLES [facility]CROBI[facility] [address] [place], [facility], [facility] [phone] * (ABNORMAL) BLOOD GASES ART + COOX PANEL (03/07/2021 12:29 AM [facility]) pH Arterial 7.51(H) 7.35 - 7.45 pH 03/07/2021 12:41 AM [facility] pO2 Arterial 161(H) 80 - 100 mmHg 03/07/2021 12:41 AM [facility] pCO2 Arterial 21(L) 35 - 45 mmHg 12:41 AM [facility] HCO3 Arterial 17(L) 20 - 30 mmol/l 03/07/2021 12:41 AM [facility] BE Arterial -4.5(L) -2.0 - 2.0 mmol/L 03/07/2021 12:41 AM [facility] Oxyhemoglobin Arterial 97.0 % 03/07/2021 12:41 AM [facility] Dexoyhemoglobin (HHB) % 0.1 % 03/07/2021 12:41 AM [facility] Methemoglobin 1.1 0.0 - 2.0 % 03/07/2021 12:41 AM [facility] Carboxyhemoglobin 1.8 0.0 - 2.0 % 2020 12:41 AM [facility] O2 Content Arterial 15.6 Interpret within clinical context mg/dL 03/07/2021 12:41 AM [facility] Hemoglobin by COOX 11.2(L) 12.0 - 17.6 g/dL 03/07/2021 12:[address] [facility] O2 Saturation Arterial 100 90 - 100 % 03/07/2021 12:[address] [facility] FI O2 Arterial 40.0 % 03/07/2021 12:[address] [facility] Blood, arterial ARTERIAL BLOOD SPECIMEN / Unknown Arterial Puncture / Unknown 03/07/2021 12:29 AM CDT 03/07/2021 12:[address] [facility] - 03/07/2021 12:41 AM CDT Carboxyhemoglobin Normal Concentration: Non-smokers: 0-2%; Smokers: 0-9%; Toxic: >20% Fredy Felipe MD LAB - BLOOD GASES OR DERABLES Performing Organization Address [facility]/ZIP Co de Phone Number [address] [address], [facility] [phone] * (ABNORMAL) CALCIUM IONIZED WHOLE BLOOD (03/07/2021 12:29 AM CDT) Calcium Ionized 1.20 mmol/L 03/07/2021 12:[address] [facility] pH 7.51(H) 7.35 - 7.45 pH 03/07/2021 12:[address] [facility] Ionized Calcium pH Adjusted 1.26 1.19 - 1.34 mmol/L 03/07/2021 12:[address] [facility] Blood BLOOD SPECIMEN / Unknown Venipuncture / Unknown 03/07/2021 12:29 AM CDT 03/07/2021 12:38 AM CDT Fredy Felipe MD LAB - CHEMISTRY ORDE RABLES Performing Organization Address [facility]/ZIP Co de Phone Number [address] [address], [place] [phone] * (ABNORMAL) HEPATIC FUNCTION PANEL (03/06/2021 11:52 PM CDT) Protein Total 7.4 6.0 - 8.3 g/dL 021 5:57 AM [facility] Albumin 1.7(L) 3.4 - 5.0 g/dL 03/07/2021 5:57 AM [facility] Bilirubin Total 0.9 0.2 - 1.2 mg/dL 02/15 5:57 AM [facility] Bilirubin Conjugated 0.7(H) 0.1 - 0.5 mg/dL 03/07/2021 5:57 AM [facility] Bilirubin Unconjugated 0.2 Unconjugated Bilirubin is a calculated value: Reference ranges have not been established. mg/dL 03/07/2021 5:57 AM [facility] Alkaline Phosphatase 302(H) 40 - 150 U/L 03/07/2021 5:57 AM [facility] ALT 80(H) 5 - 55 U/L 03/07/2021 5:57 AM [facility] AST 86(H) 5 - 34 U/L 03/07/2021 5:57 AM [facility] Albumin/Globulin Ratio 0.3(L) 1.1 - 2.3 03/07/2021 5:57 AM [facility] Blood BLOOD SPECIMEN / Unknown Venipuncture / Unknown 03/06/2021 11:52 PM CDT 03/06/2021 11:56 PM CDT Fredy Felipe MD LAB - CHEMISTRY JOSE ENRIQUE VELA [facility] Organization Address City/[facility] Co de Phone Number [address] [address], [facility] [phone] * (ABNORMAL) DIFFERENTIAL MANUAL (03/06/2021 11:52 PM CDT) WBC (corrected for NRBC) 22.9 10? 3 /uL 03/07/2021 1:27 AM [facility] Total Cell Count 100 03/07/2021 1:27 AM [facility] Neutrophils Absolute Manual 18.78(H) 1.60 - 7.00 10? 3 /uL 03/07/2021 1:27 AM [facility] Comment:(BANDS+SEGS) x WBC = NEUT # (ANC) Lymphocyte Absolute Manual 1.60 1.10 - 3.90 10? 3 /uL 03/07/2021 1:27 AM [facility] Monocytes Absolute Manual 2.06(H) 0.26 - 1.07 10? 3 /uL 03/07/2021 1:27 AM [facility] Eosinophils Absolute Manual 0.23 0.00 - 0.47 10? 3 /uL 03/07/2021 1:27 AM [facility] Basophil Absolute Manual 0.23(H) 0.00 - 0.08 10? 3 /uL 03/07/2021 1:27 AM [facility] Neutrophil % Manual 82(H) 35 - 70 % 03/07/2021 1:27 AM [facility] Lymphocyte % Manual 7(L) 20 - 43 % 03/07/2021 1:27 AM [facility] Monocytes % Manual 9 5 - 13 % 03/07/2021 1:27 AM [facility] Eosinophils % Manual 1 0 - 6 % 03/07/2021 1:27 AM [facility] Basophils % Manual 1 0 - 2 % 03/07/2021 1:27 AM [facility] Platelet Estimate Increased( A) Adequate 03/07/2021 1:27 AM [facility] RBC Morphology Normal 03/07/2021 1:27 AM [facility] Blood BLOOD SPECIMEN / Unknown Venipuncture / Unknown 03/06/2021 11:52 PM CDT 03/06/2021 11:56 PM CDT Fredy Felipe MD LAB - HEMATOLOGY ORD ERABLES [facility] [address] [place] [phone], [facility] [phone] * (ABNORMAL) CBC W AUTO DIFFERENTIAL (03/06/2021 11:52 PM CDT) WBC 22.9(H) 3.5 - 10.5 10? 3 /uL 03/07/2021 12:08 AM [facility] RBC 3.88(L) 4.30 - 5.70 10? 6 /uL 03/07/2021 12:08 AM [facility] Hemoglobin 10.3(L) 12.0 - 17.6 g/dL 03/07/2021 12:08 AM [facility] Hematocrit 33.4(L) 35.2 - 51.7 % 03/07/2021 12:08 AM [facility] MCV 86.1 80.7 - 98.3 fL 03/07/2021 12:08 AM [facility] MCH 26.5(L) 26.7 - 34.0 pg 03/07/2021 12:08 AM [facility] MCHC 30.8 30.8 - 35.9 g/dL 03/07/2021 12:08 AM [facility] Platelet Count 598(H) 150 - 400 10? 3 /uL 03/07/2021 12:08 AM [facility] Comment:Checked by periphera l smear. RDW-SD 43.4 36.0 - 50.0 fL 03/07/2021 12:08 AM [facility] RDW-CV 13.8 11.2 - 14.8 % 03/07/2021 12:08 AM [facility] MPV 9.1(L) 9.4 - 12.9 fL 03/07/2021 12:08 AM [facility] nRBC Absolute 0.00 0 10? 3 /uL 03/07/2021 12:08 AM [facility] nRBC Auto 0.0 0 /100 WBC 03/07/2021 12:08 AM [facility] Immature Platelet Fraction 0.9(L) 1.1 - 6.2 % 03/07/2021 12:08 AM [facility] Blood BLOOD SPECIMEN / Unknown Venipuncture / Unknown 03/06/2021 11:52 PM CDT 03/06/2021 11:56 PM CDT Fredy Felipe MD LAB - HEMATOLOGY ORD ERABLES [facility] [address] [phone], [facility] [phone] * (ABNORMAL) BASIC METABOLIC PANEL (CALCIUM TOTAL) (03/06/2021 11:52 PM CDT) BUN 36(H) 7 - 26 mg/dL 03/07/2021 12:18 AM [facility] Creatinine 1.45(H) 0.71 - 1.16 mg/dL 03/07/2021 12:18 AM [facility] Sodium 141 136 - 145 mmol/L 03/07/2021 12:18 AM [facility] Potassium 4.0 3.5 - 4.5 mmol/L 03/07/2021 12:18 AM [facility] Chloride 111(H) 98 - 107 mmol/L 03/07/2021 12:18 AM [facility] CO2 17(L) 22 - 29 mmol/L 03/07/2021 12:18 AM [facility] Glucose 112 70 - 115 mg/dL 03/07/2021 12:18 AM [facility] Calcium 8.7 8.4 - 10.2 mg/dL 03/07/2021 12:18 AM [facility] Anion Gap 17 8 - 18 03/07/2021 12:18 AM [facility] BUN/Creatinine Ratio 25(H) 7 - 23 03/07/2021 12:18 AM [facility] Osmolality Calculated 301(H) 270 - 300 mOsm/kg 03/07/2021 12:18 AM [facility] eGFR by CKD-EPI 62(L) >=90 mL/min/1.7 3 m2 03/07/2021 12:18 AM [facility] Blood BLOOD SPECIMEN / Unknown Venipuncture / Unknown 03/06/2021 11:52 PM CDT 03/06/2021 11:56 PM T Fredy Felipe MD LAB - CHEMISTRY JOSE ENRIQUE Pena Organization Address City/State/ZIP Co de Phone Number [facility] [address] [place] [address], [facility] [phone] * (ABNORMAL) PT-INR [facility] (03/06/2021 11:52 PM CDT) PT 15.2(H) 12.1 - 14.8 Seconds 03/07/2021 12:08 AM CDT [facility] INR 1.2 See Comment 03/07/2021 12:[address] [facility] Comment:The suggested therap eutic range for standard coumadin (warfarin) therapy is an INR of 2.0-3.0. For high-risk patients (Mechanical Mitral Valve Prosthesis, etc.), the suggested prophylactic therapeutic range is an INR of 2.5-3.5. Blood BLOOD SPECIMEN / Unknown Venipuncture / Unknown 03/06/2021 11:52 PM CDT 03/06/2021 11:56 PM CDT Fredy Felipe MD LAB - COAGULATION OR DERABLES Performing Organization Address City/[facility]/ZIP Co de Phone Number [address] [address], [facility] [phone] * PHOSPHORUS BLOOD (03/06/2021 11:52 PM CDT) Phosphorus 3.1 2.8 - 5.1 mg/dL 03/07/2021 12:[address] [facility] Blood BLOOD SPECIMEN / Unknown Venipuncture / Unknown 03/06/2021 11:52 PM CDT 03/06/2021 11:56 PM CDT Fredy Felipe MD LAB - CHEMISTRY ORDE RABLES [address] [address], [facility] [phone] * MAGNESIUM BLOOD (03/06/2021 11:52 PM CDT) Magnesium 2.3 1.6 - 2.6 mg/dL 03/07/2021 12:[address] [facility] Blood BLOOD SPECIMEN / Unknown Venipuncture / Unknown 03/06/2021 11:52 PM CDT 03/06/2021 11:56 PM CDT Fredy Felipe MD LAB - CHEMISTRY JOSE ENRIQUE Pena Organization Address City/State/ZIP Co de Phone Number [facility] [address] [place] [address], [facility] [phone] * CT ABDOMEN PELVIS W CONTRAST (03/06/2021 [...] Fortune (resident) I, Dr. NAOMY LAZO MD, [facility] have personally reviewed and interpreted this [...] UA Yellow Straw, Yellow 03/06/2021 5:45 PM CDT [facility] Clarity UA Slt Cloudy(A) Clear 03/06/2021 5:45 PM T [facility] Specific [place] UA 1.020 1.005 - 1.030 03/06/2021 5:[address] [facility] pH UA 6.0 5.0 - 8.0 pH 03/06/2021 5:45 PM T [facility] Protein UA 2+(A) Negative 03/06/2021 5:45 PM CDT [facility] Glucose UA Negative Negative 03/06/2021 5:45 PM CDT [facility] Ketone UA Negative Negative 03/06/2021 5:45 PM CDT [facility] Bilirubin UA Negative Negative 03/06/2021 5:45 PM CDT [facility] Blood UA 2+(A) Negative 03/06/2021 5:45 PM CDT [facility] Nitrite UA Negative Negative 03/06/2021 5:45 PM [facility] Leukocyte Esterase Trace(A) Negative 03/06/2021 5:45 PM CDT [facility] Urobilinogen UA Negative Negative mg/dL 03/06/2021 5:45 PM [facility] RBC UA 11-20(A) None Seen, 0-2, 3-5 /HPF 03/06/2021 5:45 PM [facility] WBC UA 21-50(A) None Seen, 0-5 /HPF 03/06/2021 5:45 PM [facility] Bacteria UA Trace(A) None /HPF 03/06/2021 5:45 PM CDT [facility] Yeast Budding UA Few(A) None /HPF 03/06/20 5:[address] [facility] Squamous Epithelial Cells UA 0-2 None Seen, 0-2, 3-5 /HPF 03/06/2021 5:[address] [facility] Mucus UA 1+ /LPF 03/06/2021 5:[address] [facility] RBC Casts UA 0-2(A) None Seen /LPF 03/06/2021 5:[address] [facility] Granular Casts UA 3-5(A) None Seen /LPF 03/06/2021 5:[address] [facility] Urine URINE SPECIMEN OBTAINED VIA [facility] / Unknown Collection / Unknown 03/06/2021 5:11 PM CDT 03/06/2021 5:[address] [facility] - 03/06/2021 5:45 PM CDT Fredy Felipe MD LAB - URINALYSIS ORD ERABLES [facility] [address] [place] [address], [facility] [phone] * XR CHEST 1VW PORTABLE (03/06/2021 4:07 [...] 25.2 10? 3 /uL 03/06/2021 2:40 AM CDT [facility] Total Cell Count 100 03/06/2021 2:40 AM [facility] Neutrophils Absolute Manual 23.18(H) 1.60 - 7.00 10? 3 /uL 03/06/2021 2:40 AM [facility] Comment:(BANDS+SEGS) x WBC = NEUT # (ANC) Lymphocyte Absolute Manual 0.50(L) 1.10 - 3.90 10? 3 /uL 03/06/2021 2:40 AM CDT [facility] Monocytes Absolute Manual 1.01 0.26 - 1.07 10? 3 /uL 03/06/2021 2:40 AM [facility] Eosinophils Absolute Manual 0.50(H) 0.00 - 0.47 10? 3 /uL 03/06/2021 2:40 AM [facility] Neutrophil % Manual 92(H) 35 - 70 % 03/06/2021 2:40 AM [facility] Lymphocyte % Manual 2(L) 20 - 43 % 03/06/2021 2:40 AM [facility] Monocytes % Manual 4(L) 5 - 13 % 03/06/2021 2:40 AM [facility] Eosinophils % Manual 2 0 - 6 % 03/06/2021 2:40 AM [facility] Platelet Estimate Increased( A) Adequate 03/06/2021 2:40 AM [facility] Comment:Platelets are clumpe d on smear but appear increased. RBC Morphology Normal 03/06/2021 2:40 AM [facility] Blood BLOOD SPECIMEN / Unknown Venipuncture / Unknown 03/06/2021 1:01 AM CDT 03/06/2021 1:16 AM CDT Frdey Felipe MD LAB - HEMATOLOGY ORD ERABLES [facility] [address] [place] [address], [facility] [phone] * (ABNORMAL) CBC W AUTO DIFFERENTIAL (03/06/2021 1:01 AM CDT) WBC 25.2(H) 3.5 - 10.5 10? 3 /uL 03/06/2021 1:36 AM [facility] RBC 3.56(L) 4.30 - 5.70 10? 6 /uL 03/06/2021 1:36 AM [facility] Hemoglobin 9.8(L) 12.0 - 17.6 g/dL 03/06/2021 1:36 AM [facility] Hematocrit 31.4(L) 35.2 - 51.7 % 03/06/2021 1:36 AM [facility] MCV 88.2 80.7 - 98.3 fL 03/06/2021 1:36 AM [facility] MCH 27.5 26.7 - 34.0 pg 03/06/2021 1:36 AM [facility] MCHC 31.2 30.8 - 35.9 g/dL 03/06/2021 1:36 AM [facility] Platelet Count 633(H) 150 - 400 10? 3 /uL 03/06/2021 1:[address] [facility] RDW-SD 45.5 36.0 - 50.0 fL 03/06/2021 1:[address] [facility] RDW-CV 14.0 11.2 - 14.8 % 03/06/2021 1:[address] [facility] MPV 9.0(L) 9.4 - 12.9 fL 03/06/2021 1:[address] [facility] nRBC Absolute 0.00 0 10? 3 /uL 03/06/2021 1:[address] [facility] nRBC Auto 0.0 0 /100 WBC 03/06/2021 1:[address] [facility] Blood BLOOD SPECIMEN / Unknown Venipuncture / Unknown 03/06/2021 1:01 AM CDT 03/06/2021 1:16 AM CDT Fredy Felipe MD LAB - HEMATOLOGY ORD ERABLES [address] [address], [place] [phone] * (ABNORMAL) TRIGLYCERIDES BLOOD (03/06/2021 12:06 AM CDT) Triglycerides 263(H) <150 mg/dL 03/06/2021 12:[address] [facility] Comment: ATP III Classification of Triglycerides: ?<150 mg/dL: ??Normal ? 150 - 199 mg/dL: ??Borderline High ? 200 - 400 mg/dL: ??High ?>500 mg/dL: ??Very High Blood BLOOD SPECIMEN / Unknown Venipuncture / Unknown 03/06/2021 12:06 AM CDT 03/06/2021 12:25 AM CDT Kelvin Stewart MD LAB - CHEMISTRY ORD ERABLES [address] [address], [place] [phone] * (ABNORMAL) BASIC METABOLIC PANEL (CALCIUM TOTAL) (03/06/2021 12:06 AM [facility]) BUN 31(H) 7 - 26 mg/dL 03/06/2021 12:50 AM [facility] Creatinine 1.42(H) 0.71 - 1.16 mg/dL 03/06/2021 12:50 AM [facility] Sodium 142 136 - 145 mmol/L 03/06/2021 12:50 AM [facility] Potassium 4.0 3.5 - 4.5 mmol/L 03/06/2021 12:50 AM [facility] Chloride 111(H) 98 - 107 mmol/L 03/06/2021 12:50 AM [facility] CO2 19(L) 22 - 29 mmol/L 03/06/2021 12:50 AM [facility] Glucose 124(H) 70 - 115 mg/dL 03/06/2021 12:50 AM [facility] Calcium 8.8 8.4 - 10.2 mg/dL 03/06/2021 12:50 AM [facility] Anion Gap 16 8 - 18 03/06/2021 12:50 AM [facility] BUN/Creatinine Ratio 22 7 - 23 03/06/2021 12:50 AM [facility] Osmolality Calculated 302(H) 270 - 300 mOsm/kg 03/06/2021 12:50 AM [facility] eGFR by CKD-EPI 64(L) >=90 mL/min/1.7 3 m2 03/06/2021 12:50 AM [facility] Blood BLOOD SPECIMEN / Unknown Venipuncture / Unknown 03/06/2021 12:06 AM CDT 03/06/2021 12:25 AM [facility] Fredy Felipe MD LAB - CHEMISTRY JOSE ENRIQUE VELA [facility] Organization Address City/State/ZIP Co de Phone Number [facility] [address] [place] [address], [facility] [phone] * (ABNORMAL) BLOOD GASES ART + COOX PANEL (03/06/2021 12:06 AM [facility]) pH Arterial 7.42 7.35 - 7.45 pH 03/06/2021 12:36 AM [facility] pO2 Arterial 189(H) 80 - 100 mmHg 03/06/2021 12:36 AM [facility] pCO2 Arterial 30(L) 35 - 45 mmHg 12:36 AM [facility] HCO3 Arterial 20 20 - 30 mmol/l 03/06/2021 12:36 AM [facility] BE Arterial -4.1(L) -2.0 - 2.0 mmol/L 03/06/2021 12:36 AM [facility] Oxyhemoglobin Arterial 97.2 % 03/06/2021 12:36 AM [facility] Dexoyhemoglobin (HHB) % 0.0 % 03/06/2021 12:36 AM [facility] Methemoglobin <0.8 0.0 - 2.0 % 03/06/2021 12:36 AM [facility] Carboxyhemoglobin 2.4(H) 0.0 - 2.0 % 2020 12:36 AM [facility] O2 Content Arterial 15.1 Interpret within clinical context mg/dL 03/06/2021 12:36 AM [facility] Hemoglobin by COOX 10.7(L) 12.0 - 17.6 g/dL 03/06/2021 12:36 AM [facility] O2 Saturation Arterial 100 90 - 100 % 03/06/2021 12:36 AM [facility] FI O2 Arterial 80.0 % 03/06/2021 12:36 AM [facility] Blood, arterial ARTERIAL BLOOD SPECIMEN / Unknown Arterial Puncture / Unknown 03/06/2021 12:06 AM [facility] 03/06/2021 12:22 AM [facility] - 03/06/2021 12:36 AM [facility] Carboxyhemoglobin Normal Concentration: Non-smokers: 0-2%; Smokers: 0-9%; Toxic: >20% Fredy Felipe MD LAB - BLOOD GASES OR DERABLES Performing Organization Address [facility]/ZIP Co de Phone Number [facility] [address] [place] [address], [facility] [phone] * (ABNORMAL) PT-INR [facility] (03/06/2021 12:06 AM CDT) PT 15.7(H) 12.1 - 14.8 Seconds 03/06/2021 12:[address] [facility] INR 1.3 See Comment 03/06/2021 12:[address] [facility] Comment:The suggested therap eutic range for standard coumadin (warfarin) therapy is an INR of 2.0-3.0. For high-risk patients (Mechanical Mitral Valve Prosthesis, etc.), the suggested prophylactic therapeutic range is an INR of 2.5-3.5. Blood BLOOD SPECIMEN / Unknown Venipuncture / Unknown 03/06/2021 12:06 AM CDT 03/06/2021 12:22 AM CDT Fredy Felipe MD LAB - COAGULATION OR DERABLES Performing Organization Address [facility]/ZIP Co de Phone Number [address] [address], [facility] [phone] * PHOSPHORUS BLOOD (03/06/2021 12:06 AM CDT) Phosphorus 3.3 2.8 - 5.1 mg/dL 03/06/2021 12:[address] [facility] Blood BLOOD SPECIMEN / Unknown Venipuncture / Unknown 03/06/2021 12:06 AM CDT 03/06/2021 12:25 AM CDT Fredy Felipe MD LAB - CHEMISTRY ORDNolan RABLES [facility] [address] [place] [address], [place] [phone] * MAGNESIUM BLOOD (03/06/2021 12:06 AM CDT) Magnesium 2.1 1.6 - 2.6 mg/dL 03/06/2021 12:[address] [facility] Blood BLOOD SPECIMEN / Unknown Venipuncture / Unknown 03/06/2021 12:06 AM CDT 03/06/2021 12:25 AM CDT Fredy Felipe MD LAB - CHEMISTRY JOSE ENRIQUE VELA Performing Organization Address [facility] Co de Phone Number [address] [address], [facility] [phone] * (ABNORMAL) CALCIUM IONIZED WHOLE BLOOD (03/06/2021 12:06 AM CDT) Calcium Ionized 1.12 mmol/L 03/06/2021 12:[address] [facility] pH 7.43 7.35 - 7.45 pH 03/06/2021 12:[address] [facility] Ionized Calcium pH Adjusted 1.13(L) 1.19 - 1.34 mmol/L 03/06/2021 12:[address] [facility] Blood BLOOD SPECIMEN / Unknown Venipuncture / Unknown 03/06/2021 12:06 AM CDT 03/06/2021 12:22 AM CDT Ferdy Felipe MD LAB - CHEMISTRY JOSE ENRIQUE VELA Performing Organization Address [facility] de Phone Number [address] [address], [facility] [phone] * XR CHEST 1VW PORTABLE (03/05/2021 4:54 [...] by Keo Hernandez M.D. (resident) I, Dr. AFRICA HENRIQUEZ M.D. have personally reviewed and interpreted this examination/study. This report was electronically signed by AFRICA HENRIQUEZ M.D. on03/05/2021 2:40 PM . Fredy Felipe MD DIAGNOSTIC IMAGING O RDERABLES * (ABNORMAL) DIFFERENTIAL MANUAL (03/04/2021 11:48 PM CDT) WBC (corrected for NRBC) 22.9 10? 3 /uL 03/05/2021 12:32 AM [facility] Total Cell Count 100 03/05/2021 12:32 AM [facility] Neutrophils Absolute Manual 19.47(H) 1.60 - 7.00 10? 3 /uL 03/05/2021 12:32 AM [facility] Comment:(BANDS+SEGS) x WBC = NEUT # (ANC) Lymphocyte Absolute Manual 1.15 1.10 - 3.90 10? 3 /uL 03/05/2021 12:32 AM [facility] Monocytes Absolute Manual 1.83(H) 0.26 - 1.07 10? 3 /uL 03/05/2021 12:32 AM T [facility] Eosinophils Absolute Manual 0.46 0.00 - 0.47 10? 3 /uL 03/05/2021 12:32 AM [facility] Neutrophil % Manual 85(H) 35 - 70 % 03/05/2021 12:32 AM [facility] Lymphocyte % Manual 5(L) 20 - 43 % 03/05/2021 12:32 AM [facility] Monocytes % Manual 8 5 - 13 % 03/05/2021 12:32 AM [facility] Eosinophils % Manual 2 0 - 6 % 03/05/2021 12:32 AM [facility] Platelet Estimate Increased( A) Adequate 03/05/2021 12:32 AM [facility] RBC Morphology Normal 03/05/2021 12:32 AM [facility] Blood BLOOD SPECIMEN / Unknown Venipuncture / Unknown 03/04/2021 11:48 PM CDT 03/04/2021 11:53 PM CDT Fredy Felipe MD LAB - HEMATOLOGY ORD ERABLES Performing Organization Address City/State/[facility] Co de Phone Number [facility] [address] [place] [phone] [phone] * (ABNORMAL) CBC W AUTO DIFFERENTIAL (03/04/2021 11:48 PM CDT) WBC 22.9(H) 3.5 - 10.5 10? 3 /uL 03/05/2021 12:06 AM [facility] RBC 3.89(L) 4.30 - 5.70 10? 6 /uL 03/05/2021 12:06 AM [facility] Hemoglobin 10.7(L) 12.0 - 17.6 g/dL 03/05/2021 12:06 AM [facility] Hematocrit 33.9(L) 35.2 - 51.7 % 03/05/2021 12:06 AM [facility] MCV 87.1 80.7 - 98.3 fL 03/05/2021 12:06 AM [facility] MCH 27.5 26.7 - 34.0 pg 03/05/2021 12:06 AM [facility] MCHC 31.6 30.8 - 35.9 g/dL 03/05/2021 12:06 AM [facility] Platelet Count 712(H) 150 - 400 10? 3 /uL 03/05/2021 12:06 AM [facility] RDW-SD 44.3 36.0 - 50.0 fL 03/05/2021 12:06 AM [facility] RDW-CV 14.0 11.2 - 14.8 % 03/05/2021 12:06 AM [facility] MPV 8.9(L) 9.4 - 12.9 fL 03/05/2021 12:06 AM [facility] nRBC Absolute 0.00 0 10? 3 /uL 03/05/2021 12:06 AM [facility] nRBC Auto 0.0 0 /100 WBC 03/05/2021 12:06 AM [facility] Immature Platelet Fraction 1.2 1.1 - 6.2 % 03/05/2021 12:06 AM [facility] Blood BLOOD SPECIMEN / Unknown Venipuncture / Unknown 03/04/2021 11:48 PM CDT 03/04/2021 11:53 PM CDT Fredy Felipe MD LAB - HEMATOLOGY ORD ERABLES [facility] [address] [place] [address], [facility] [phone] * (ABNORMAL) BASIC METABOLIC PANEL (CALCIUM TOTAL) (03/04/2021 11:48 PM CDT) BUN 27(H) 7 - 26 mg/dL 03/05/2021 12:16 AM [facility] Creatinine 1.27(H) 0.71 - 1.16 mg/dL 03/05/2021 12:16 AM [facility] Sodium 142 136 - 145 mmol/L 03/05/2021 12:16 AM [facility] Potassium 3.9 3.5 - 4.5 mmol/L 03/05/2021 12:16 AM [facility] Chloride 111(H) 98 - 107 mmol/L 03/05/2021 12:16 AM [facility] CO2 19(L) 22 - 29 mmol/L 03/05/2021 12:16 AM [facility] Glucose 116(H) 70 - 115 mg/dL 03/05/2021 12:16 AM [facility] Calcium 9.2 8.4 - 10.2 mg/dL 03/05/2021 12:16 AM [facility] Anion Gap 16 8 - 18 03/05/2021 12:16 AM [facility] BUN/Creatinine Ratio 21 7 - 23 03/05/2021 12:16 AM [facility] Osmolality Calculated 300 270 - 300 mOsm/kg 03/05/2021 12:16 AM [facility] eGFR by CKD-EPI 73(L) >=90 mL/min/1.7 3 m2 03/05/2021 12:16 AM [facility] Blood BLOOD SPECIMEN / Unknown Venipuncture / Unknown 03/04/2021 11:48 PM CDT 03/04/2021 11:53 PM CDT Fredy Felipe MD LAB - CHEMISTRY JOSE ENRIQUE VELA [facility] Organization Address City/State/ZIP Co de Phone Number [facility] [address] [place] [address], [facility] [phone] * (ABNORMAL) BLOOD GASES ART + COOX PANEL (03/04/2021 11:48 PM CDT) pH Arterial 7.46(H) 7.35 - 7.45 pH 03/04/2021 11:57 PM [facility] pO2 Arterial 190(H) 80 - 100 mmHg 03/04/2021 11:57 PM [facility] pCO2 Arterial 28(L) 35 - 45 mmHg 11:57 PM [facility] HCO3 Arterial 20 20 - 30 mmol/l 03/04/2021 11:57 PM [facility] BE Arterial -2.9(L) -2.0 - 2.0 mmol/L 03/04/2021 11:57 PM [facility] Oxyhemoglobin Arterial 96.4 % 03/04/2021 11:57 PM [facility] Dexoyhemoglobin (HHB) % 0.5 % 03/04/2021 11:57 PM [facility] Methemoglobin 0.8 0.0 - 2.0 % 03/04/2021 11:57 PM [facility] Carboxyhemoglobin 2.3(H) 0.0 - 2.0 % 2020 11:57 PM [facility] O2 Content Arterial 16.4 Interpret within clinical context mg/dL 03/04/2021 11:57 PM [facility] Hemoglobin by COOX 11.8(L) 12.0 - 17.6 g/dL 03/04/2021 11:57 PM [facility] O2 Saturation Arterial 100 90 - 100 % 03/04/2021 11:57 PM [facility] FI O2 Arterial 40.0 % 03/04/2021 11:57 PM [facility] Blood, arterial ARTERIAL BLOOD SPECIMEN / Unknown Arterial Puncture / Unknown 03/04/2021 11:48 PM CDT 03/04/2021 11:53 PM CDT [facility] - 03/04/2021 11:57 PM CDT Carboxyhemoglobin Normal Concentration: Non-smokers: 0-2%; Smokers: 0-9%; Toxic: >20% Fredy Felipe MD LAB - BLOOD GASES OR DERABLES Performing Organization Address City/State/[facility] Co de Phone Number [facility] [address] [place] [address], [facility] [phone] * (ABNORMAL) PT-INR [facility] (03/04/2021 11:48 PM CDT) PT 15.1(H) 12.1 - 14.8 Seconds 03/05/2021 12:12 AM [facility] INR 1.2 See Comment 03/05/2021 12:12 AM [facility] Comment:The suggested therap eutic range for standard coumadin (warfarin) therapy is an INR of 2.0-3.0. For high-risk patients (Mechanical Mitral Valve Prosthesis, etc.), the suggested prophylactic therapeutic range is an INR of 2.5-3.5. Blood BLOOD SPECIMEN / Unknown Venipuncture / Unknown 03/04/2021 11:48 PM CDT 03/04/2021 11:53 PM CDT Fredy Felipe MD LAB - COAGULATION OR DERABLES Performing Organization Address City/[facility]/ZIP Co de Phone Number [address] [address], [place] [phone] * PHOSPHORUS BLOOD (03/04/2021 11:48 PM CDT) Phosphorus 3.2 2.8 - 5.1 mg/dL 03/05/2021 12:[address] [facility] Blood BLOOD SPECIMEN / Unknown Venipuncture / Unknown 03/04/2021 11:48 PM CDT 03/04/2021 11:53 PM CDT Fredy Felipe MD LAB - CHEMISTRY JOSE ENRIQUE VELA Performing Organization Address [facility] Co de Phone Number [address] [address], [facility] [phone] * MAGNESIUM BLOOD (03/04/2021 11:48 PM CDT) Magnesium 2.2 1.6 - 2.6 mg/dL 03/05/2021 12:[address] [facility] Blood BLOOD SPECIMEN / Unknown Venipuncture / Unknown 03/04/2021 11:48 PM CDT 03/04/2021 11:53 PM CDT Fredy Felipe MD LAB - CHEMISTRY JOSE ENRIQUE VELA Performing Organization Address [facility]/ZIP Co de Phone Number [address] [address], [facility] [phone] * (ABNORMAL) CALCIUM IONIZED WHOLE BLOOD (03/04/2021 11:48 PM CDT) Calcium Ionized 1.22 mmol/L 03/04/2021 11:57 PM CDT [facility] pH 7.47(H) 7.35 - 7.45 pH 03/04/2021 11:57 PM CDT [facility] Ionized Calcium pH Adjusted 1.26 1.19 - 1.34 mmol/L 03/04/2021 11:57 PM CDT [facility] Blood BLOOD SPECIMEN / Unknown Venipuncture / Unknown 03/04/2021 11:48 PM CDT 03/04/2021 11:53 PM CDT Fredy Felipe MD LAB - CHEMISTRY JOSE ENRIQUE VELA [facility] [address] [place] [address], [facility] [phone] * CULTURE MRSA (03/04/2021 12:43 PM CDT) Culture Negative for methicillin-resist ant Staphylococcus aureus (MRSA) [place] 03/05/2021 8:38 PM CDT [facility] MICROBIOLOG[facility] Microbiology SPECIMEN FROM NASAL FOSSAE / Unknown Collection / Unknown 03/04/2021 12:43 PM CDT 03/04/2021 12:52 PM CDT Kelvin Stewart MD LAB - MICROBIOLOGY ORDERABLES [facility] [address] [place] [address], [facility] [phone] * CULTURE SPUTUM+GRAM STAIN (03/04/2021 5:47 AM CDT) Culture Light normal oropharyngeal zi [place] 03/06/2021 6:42 AM CDT [facility] MICRO[facility] Gram Stain <10 per low power field Squamous epithelial cells 03/06/2021 6:42 AM CDT [facility] Gram Stain >= 25 per low power field Polymorphonuclear cells 03/06/2021 6:42 AM CDT [facility] Gram Stain Rare Gram-positive cocci 03/06/2021 6:42 AM CDT [facility] MICROBIOLOGY Microbiology SPUTUM / Unknown Collection / Unknown 03/04/2021 5:47 AM CDT 03/04/2021 5:50 AM CDT Fredy Felipe MD LAB - MICROBIOLOGY O RDERABLES [facility] MICROBIOLOGY [address] [place], [place] [address], [facility] [phone] * XR CHEST 1VW PORTABLE (03/04/2021 5:27 [...] is normal. Dictated by Alex Verdugo MD (manager residential). I, Dr. OSWALDO CLEMONS have personally reviewed [...] is normal. Dictated by Alex Verdugo MD (manager residential). I, Dr. OSWALDO CLEMONS have personally reviewed and interpreted this examination/study. This report was electronically signed by OSWALDO CLEMONS on 03/04/2021 4:04 PM . Fredy Felipe MD DIAGNOSTIC IMAGING O RDERABLES * (ABNORMAL) DIFFERENTIAL MANUAL (03/04/2021 1:04 AM CDT) WBC (corrected for NRBC) 20.3 10? 3 /uL 03/04/2021 1:46 AM [facility] Total Cell Count 100 03/04/2021 1:46 AM [facility] Neutrophils Absolute Manual 17.66(H) 1.60 - 7.00 10? 3 /uL 03/04/2021 1:46 AM [facility] Comment:(BANDS+SEGS) x WBC = NEUT # (ANC) Lymphocyte Absolute Manual 0.81(L) 1.10 - 3.90 10? 3 /uL 03/04/2021 1:46 AM [facility] Monocytes Absolute Manual 1.02 0.26 - 1.07 10? 3 /uL 03/04/2021 1:46 AM [facility] Eosinophils Absolute Manual 0.61(H) 0.00 - 0.47 10? 3 /uL 03/04/2021 1:46 AM [facility] Neutrophil % Manual 87(H) 35 - 70 % 03/04/2021 1:46 AM [facility] Lymphocyte % Manual 4(L) 20 - 43 % 03/04/2021 1:46 AM [facility] Monocytes % Manual 5 5 - 13 % 03/04/2021 1:46 AM [facility] Eosinophils % Manual 3 0 - 6 % 03/04/2021 1:46 AM [facility] Atypical Lymphocyte % Manual 1(H) 0 % 03/04/2021 1:46 AM [facility] Platelet Estimate Increased( A) Adequate 03/04/2021 1:46 AM [facility] Comment:Platelet clumpled on the smear but appear increased RBC Morphology Normal 03/04/2021 1:46 AM [facility] Blood BLOOD SPECIMEN / Unknown Venipuncture / Unknown 03/04/2021 1:04 AM CDT 03/04/2021 1:16 AM CDT Fredy Felipe MD LAB - HEMATOLOGY ORD ERABLES [facility] [address] [place] [address], [facility] [phone] * (ABNORMAL) CBC W AUTO DIFFERENTIAL (03/04/2021 1:04 AM CDT) WBC 20.3(H) 3.5 - 10.5 10? 3 /uL 03/04/2021 1:21 AM [facility] RBC 3.97(L) 4.30 - 5.70 10? 6 /uL 03/04/2021 1:21 AM [facility] Hemoglobin 10.7(L) 12.0 - 17.6 g/dL 03/04/2021 1:21 AM [facility] Hematocrit 33.9(L) 35.2 - 51.7 % 03/04/2021 1:21 AM [facility] MCV 85.4 80.7 - 98.3 fL 03/04/2021 1:21 AM [facility] MCH 27.0 26.7 - 34.0 pg 03/04/2021 1:21 AM [facility] MCHC 31.6 30.8 - 35.9 g/dL 03/04/2021 1:21 AM [facility] Platelet Count 665(H) 150 - 400 10? 3 /uL 03/04/2021 1:21 AM [facility] RDW-SD 43.2 36.0 - 50.0 fL 03/04/2021 1:21 AM [facility] RDW-CV 13.7 11.2 - 14.8 % 03/04/2021 1:21 AM [facility] MPV 8.8(L) 9.4 - 12.9 fL 03/04/2021 1:21 AM [facility] nRBC Absolute 0.00 0 10? 3 /uL 03/04/2021 1:21 AM [facility] nRBC Auto 0.0 0 /100 WBC 03/04/2021 1:21 AM [facility] Blood BLOOD SPECIMEN / Unknown Venipuncture / Unknown 03/04/2021 1:04 AM CDT 03/04/2021 1:16 AM CDT Fredy Felipe MD LAB - HEMATOLOGY ORD ERABLES [facility] [address] [place] [address], [facility] [phone] * (ABNORMAL) BASIC METABOLIC PANEL (CALCIUM TOTAL) (03/04/2021 1:04 AM CDT) BUN 25 7 - 26 mg/dL 03/04/2021 1:40 AM [facility] Creatinine 1.28(H) 0.71 - 1.16 mg/dL 03/04/2021 1:40 AM [facility] Sodium 141 136 - 145 mmol/L 03/04/2021 1:40 AM [facility] Potassium 3.6 3.5 - 4.5 mmol/L 03/04/2021 1:40 AM [facility] Chloride 109(H) 98 - 107 mmol/L 03/04/2021 1:40 AM [facility] CO2 19(L) 22 - 29 mmol/L 03/04/2021 1:40 AM [facility] Glucose 117(H) 70 - 115 mg/dL 03/04/2021 1:40 AM [facility] Calcium 9.2 8.4 - 10.2 mg/dL 03/04/2021 1:40 AM [facility] Anion Gap 17 8 - 18 03/04/2021 1:40 AM [facility] BUN/Creatinine Ratio 20 7 - 23 03/04/2021 1:40 AM [facility] Osmolality Calculated 297 270 - 300 mOsm/kg 03/04/2021 1:40 AM [facility] eGFR by CKD-EPI 72(L) >=90 mL/min/1.7 3 m2 03/04/2021 1:40 AM [facility] Blood BLOOD SPECIMEN / Unknown Venipuncture / Unknown 03/04/2021 1:04 AM CDT 03/04/2021 1:16 AM CDT Fredy Felipe MD LAB - CHEMISTRY JOSE ENRIQUE Pena Organization Address City/State/ZIP Co de Phone Number [facility] [address] [place] [address], [facility] [phone] * (ABNORMAL) BLOOD GASES ART + COOX PANEL (03/04/2021 1:04 AM CDT) pH Arterial 7.43 7.35 - 7.45 pH 03/04/2021 1:17 AM [facility] pO2 Arterial 154(H) 80 - 100 mmHg 03/04/2021 1:17 AM [facility] pCO2 Arterial 32(L) 35 - 45 mmHg 1:17 AM [facility] HCO3 Arterial 21 20 - 30 mmol/l 03/04/2021 1:17 AM [facility] BE Arterial -2.4(L) -2.0 - 2.0 mmol/L 03/04/2021 1:17 AM [facility] Oxyhemoglobin Arterial 97.8 % 03/04/2021 1:17 AM [facility] Dexoyhemoglobin (HHB) % 0.3 % 03/04/2021 1:17 AM [facility] Methemoglobin 0.8 0.0 - 2.0 % 03/04/2021 1:17 AM [facility] Carboxyhemoglobin 1.2 0.0 - 2.0 % 2020 1:17 AM [facility] O2 Content Arterial 15.8 Interpret within clinical context mg/dL 03/04/2021 1:17 AM [facility] Hemoglobin by COOX 11.3(L) 12.0 - 17.6 g/dL 03/04/2021 1:17 AM [facility] O2 Saturation Arterial 100 90 - 100 % 03/04/2021 1:17 AM [facility] FI O2 Arterial 40.0 % 03/04/2021 1:[address] [facility] Blood, arterial ARTERIAL BLOOD SPECIMEN / Unknown Arterial Puncture / Unknown 03/04/2021 1:04 AM CDT 03/04/2021 1:[address] [facility] - 03/04/2021 1:17 AM CDT Carboxyhemoglobin Normal Concentration: Non-smokers: 0-2%; Smokers: 0-9%; Toxic: >20% Fredy Felipe MD LAB - BLOOD GASES OR DERABLES [address] [address], [facility] [phone] * (ABNORMAL) PT-INR [facility] (03/04/2021 1:04 AM CDT) PT 15.0(H) 12.1 - 14.8 Seconds 03/04/2021 1:[address] [facility] INR 1.2 See Comment 03/04/2021 1:[address] [facility] Comment:The suggested therap eutic range for standard coumadin (warfarin) therapy is an INR of 2.0-3.0. For high-risk patients (Mechanical Mitral Valve Prosthesis, etc.), the suggested prophylactic therapeutic range is an INR of 2.5-3.5. Blood BLOOD SPECIMEN / Unknown Venipuncture / Unknown 03/04/2021 1:04 AM CDT 03/04/2021 1:12 AM CDT Fredy Felipe MD LAB - COAGULATION OR DERABLES [address] [address], [facility] [phone] * PHOSPHORUS BLOOD (03/04/2021 1:04 AM CDT) Phosphorus 3.0 2.8 - 5.1 mg/dL 03/04/2021 1:[address] [facility] Blood BLOOD SPECIMEN / Unknown Venipuncture / Unknown 03/04/2021 1:04 AM CDT 03/04/2021 1:16 AM CDT Fredy Felipe MD LAB - CHEMISTRY JOSE ENRIQUE VELA [address] [address], [facility] [phone] * MAGNESIUM BLOOD (03/04/2021 1:04 AM CDT) Magnesium 2.1 1.6 - 2.6 mg/dL 03/04/2021 1:40 AM CDT [facility] Blood BLOOD SPECIMEN / Unknown Venipuncture / Unknown 03/04/2021 1:04 AM CDT 03/04/2021 1:16 AM CDT Fredy Felipe MD LAB - CHEMISTRY JOSE ENRIQUE VELA Performing Organization Address [facility]/ZIP Co de Phone Number [address] [address], [place] [phone] * CALCIUM IONIZED WHOLE BLOOD (03/04/2021 1:04 AM CDT) Calcium Ionized 1.20 mmol/L 03/04/2021 1:19 AM CDT [facility] pH 7.41 7.35 - 7.45 pH 03/04/2021 1:19 AM CDT [facility] Ionized Calcium pH Adjusted 1.20 1.19 - 1.34 mmol/L 03/04/2021 1:19 AM CDT [facility] Blood BLOOD SPECIMEN / Unknown Venipuncture / Unknown 03/04/2021 1:04 AM CDT 03/04/2021 1:15 AM CDT Fredy Felipe MD LAB - CHEMISTRY JOSE ENRIQUE VELA Performing Organization Address City/[facility]/ZIP Co de Phone Number [address] [address], [place] [phone] * CULTURE BLOOD (03/03/2021 8:20 AM CDT) Culture No growth day 5 CALISTA 03/08/2021 2:00 PM CDT [facility] Blood PERIPHERAL BLOOD / Unknown Venipuncture / Unknown 03/03/2021 8:20 AM CDT 03/03/2021 8:46 AM CDT Fredy Felipe MD LAB - MICROBIOLOGY O TIFFANY Performing Organization Address [facility] Co de Phone Number [facility]CRO[facility] [address] [place] [address], [facility] [phone] * CULTURE BLOOD (03/03/2021 8:00 AM CDT) Culture No growth day 5 CALISTA 03/08/2021 2:00 PM CDT [facility] Blood PERIPHERAL BLOOD / Unknown Venipuncture / Unknown 03/03/2021 8:00 AM CDT 03/03/2021 8:46 AM CDT Fredy Felipe MD LAB - MICROBIOLOGY O TIFFANY Performing Organization Address [facility] Co de Phone Number [facility] [address] [facility] [place] [address], [facility] [phone] * XR CHEST 1VW PORTABLE (03/03/2021 4:56 [...] by Ivette Fortune DO (resident). I, Dr. NAOMY LAZO MD, FRKEN have personally reviewed and interpreted this examination/study. This report was electronically signed by NAOMY LAZO MD, FRCR ??on 03/03/2021 3:48 PM . Narrative 03/03/2021 [...] cardiomediastinal silhouette is normal. Dictated by Ivette Forutne DO (resident). IDr. NAOMY MD, [facility] have personally reviewedand interpreted this examination/study. This report was electronically signed by NAOMY LAZO MD, [facility] on 03/03/2021 3:48 PM . Fredy Felipe MD DIAGNOSTIC IMAGING O RDERABLES * (ABNORMAL) DIFFERENTIAL MANUAL (03/02/2021 11:41 PM CDT) WBC (corrected for NRBC) 20.3 10? 3 /uL 03/03/2021 12:26 AM CDT [facility] Total Cell Count 100 03/03/2021 12:26 AM T [facility] Neutrophils Absolute Manual 17.26(H) 1.60 - 7.00 10? 3 /uL 03/03/2021 12:26 AM T [facility] Comment:(BANDS+SEGS) x WBC = NEUT # (ANC) Lymphocyte Absolute Manual 1.22 1.10 - 3.90 10? 3 /uL 03/03/2021 12:26 AM [facility] Monocytes Absolute Manual 1.42(H) 0.26 - 1.07 10? 3 /uL 03/03/2021 12:26 AM [facility] Eosinophils Absolute Manual 0.41 0.00 - 0.47 10? 3 /uL 03/03/2021 12:26 AM [facility] Band % Manual 1 0 - 10 % 03/03/2021 12:26 AM [facility] Neutrophil % Manual 84(H) 35 - 70 % 03/03/2021 12:26 AM [facility] Lymphocyte % Manual 6(L) 20 - 43 % 03/03/2021 12:26 AM [facility] Monocytes % Manual 7 5 - 13 % 03/03/2021 12:26 AM [facility] Eosinophils % Manual 2 0 - 6 % 03/03/2021 12:26 AM [facility] Platelet Estimate Increased(A) Adequate 03/03/2021 12:26 AM [facility] RBC Morphology Normal 03/03/2021 12:26 AM [facility] Comment Platelet Platelet clumpled on the smear but appear increased. 03/03/2021 12:26 AM [facility] Blood BLOOD SPECIMEN / Unknown Venipuncture / Unknown 03/02/2021 11:41 PM CDT 03/02/2021 11:45 PM CDT Fredy Felipe MD LAB - HEMATOLOGY ORD ERABLES [facility] [address] [place] [address], [facility] [phone] * (ABNORMAL) TRIGLYCERIDES BLOOD (03/02/2021 11:41 PM CDT) Triglycerides 474(H) <150 mg/dL 03/03/2021 12:10 AM [facility] Comment: ATP III Classification of Triglycerides: ?<150 mg/dL: ??Normal ? 150 - 199 mg/dL: ??Borderline High ? 200 - 400 mg/dL: ??High ?>500 mg/dL: ??Very High Blood BLOOD SPECIMEN / Unknown Venipuncture / Unknown 03/02/2021 11:41 PM CDT 03/02/2021 11:45 PM CDT Kelvin Stewart MD LAB - CHEMISTRY ORD ERABLES [facility] [address] [place] [address], [facility] [phone] * (ABNORMAL) CBC W AUTO DIFFERENTIAL (03/02/2021 11:41 PM CDT) WBC 20.3(H) 3.5 - 10.5 10? 3 /uL 03/02/2021 11:[address] [facility] RBC 3.67(L) 4.30 - 5.70 10? 6 /uL 03/02/2021 11:[address] [facility] Hemoglobin 10.2(L) 12.0 - 17.6 g/dL 03/02/2021 11:[address] [facility] Hematocrit 32.0(L) 35.2 - 51.7 % 03/02/2021 11:[address] [facility] MCV 87.2 80.7 - 98.3 fL 03/02/2021 11:[address] [facility] MCH 27.8 26.7 - 34.0 pg 03/02/2021 11:[address] [facility] MCHC 31.9 30.8 - 35.9 g/dL 03/02/2021 11:[address] [facility] Platelet Count 623(H) 150 - 400 10? 3 /uL 03/02/2021 11:[address] [facility] RDW-SD 43.9 36.0 - 50.0 fL 03/02/2021 11:[address] [facility] RDW-CV 13.7 11.2 - 14.8 % 03/02/2021 11:50 PM [facility] MPV 8.6(L) 9.4 - 12.9 fL 03/02/2021 11:50 PM [facility] nRBC Absolute 0.00 0 10? 3 /uL 03/02/2021 11:50 PM [facility] nRBC Auto 0.0 0 /100 WBC 03/02/2021 11:50 PM [facility] Blood BLOOD SPECIMEN / Unknown Venipuncture / Unknown 03/02/2021 11:41 PM CDT 03/02/2021 11:45 PM CDT Fredy Felipe MD LAB - HEMATOLOGY ORD ERABLES [facility] [address] [place] [phone], [facility] [phone] * (ABNORMAL) BASIC METABOLIC PANEL (CALCIUM TOTAL) (03/02/2021 11:41 PM CDT) BUN 19 7 - 26 mg/dL 03/03/2021 12:10 AM [facility] Creatinine 1.30(H) 0.71 - 1.16 mg/dL 03/03/2021 12:10 AM [facility] Sodium 142 136 - 145 mmol/L 03/03/2021 12:10 AM [facility] Potassium 3.7 3.5 - 4.5 mmol/L 03/03/2021 12:10 AM [facility] Chloride 108(H) 98 - 107 mmol/L 03/03/2021 12:10 AM [facility] CO2 21(L) 22 - 29 mmol/L 03/03/2021 12:10 AM [facility] Glucose 104 70 - 115 mg/dL 03/03/2021 12:10 AM [facility] Calcium 9.1 8.4 - 10.2 mg/dL 03/03/2021 12:10 AM [facility] Anion Gap 17 8 - 18 03/03/2021 12:10 AM [facility] BUN/Creatinine Ratio 15 7 - 23 03/03/2021 12:10 AM [facility] Osmolality Calculated 297 270 - 300 mOsm/kg 03/03/2021 12:10 AM [facility] eGFR by CKD-EPI 71(L) >=90 mL/min/1.7 3 m2 03/03/2021 12:10 AM [facility] Blood BLOOD SPECIMEN / Unknown Venipuncture / Unknown 03/02/2021 11:41 PM CDT 03/02/2021 11:45 PM T Fredy Felipe MD LAB - CHEMISTRY JOSE ENRIQUE VELA [facility] [address] [place] [address], [facility] [phone] * (ABNORMAL) BLOOD GASES ART + COOX PANEL (03/02/2021 11:41 PM CDT) pH Arterial 7.52(H) 7.35 - 7.45 pH 03/02/2021 11:46 PM [facility] pO2 Arterial 160(H) 80 - 100 mmHg 03/02/2021 11:46 PM [facility] pCO2 Arterial 29(L) 35 - 45 mmHg 11:46 PM [facility] HCO3 Arterial 24 20 - 30 mmol/l 03/02/2021 11:46 PM [facility] BE Arterial 1.4 -2.0 - 2.0 mmol/L 03/02/2021 11:46 PM [facility] Oxyhemoglobin Arterial 96.3 % 03/02/2021 11:46 PM [facility] Dexoyhemoglobin (HHB) % 0.1 % 03/02/2021 11:46 PM [facility] Methemoglobin 0.9 0.0 - 2.0 % 03/02/2021 11:46 PM [facility] Carboxyhemoglobin 2.7(H) 0.0 - 2.0 % 2020 11:46 PM [facility] O2 Content Arterial 15.2 Interpret within clinical context mg/dL 03/02/2021 11:46 PM [facility] Hemoglobin by COOX 11.0(L) 12.0 - 17.6 g/dL 03/02/2021 11:[address] [facility] O2 Saturation Arterial 100 90 - 100 % 03/02/2021 11:[address] [facility] FI O2 Arterial 40.0 % 03/02/2021 11:[address] [facility] Blood, arterial ARTERIAL BLOOD SPECIMEN / Unknown Arterial Puncture / Unknown 03/02/2021 11:41 PM CDT 03/02/2021 11:[address] [facility] - 03/02/2021 11:46 PM CDT Carboxyhemoglobin Normal Concentration: Non-smokers: 0-2%; Smokers: 0-9%; Toxic: >20% Fredy Felipe MD LAB - BLOOD GASES OR DERABLES Performing Organization Address [facility] de Phone Number [address] [address], [facility] [phone] * PT-INR [facility] (03/02/2021 11:41 PM CDT) PT 14.8 12.1 - 14.8 Seconds 03/03/2021 1:[address] [facility] INR 1.2 See Comment 03/03/2021 1:[address] [facility] Comment:The suggested therap eutic range for standard coumadin (warfarin) therapy is an INR of 2.0-3.0. For high-risk patients (Mechanical Mitral Valve Prosthesis, etc.), the suggested prophylactic therapeutic range is an INR of 2.5-3.5. Blood BLOOD SPECIMEN / Unknown Venipuncture / Unknown 03/02/2021 11:41 PM CDT 03/02/2021 11:52 PM CDT Fredy Felipe MD LAB - COAGULATION OR DERABLES Performing Organization Address [facility]/ZIP Co de Phone Number [address] [address], [facility] [phone] * PHOSPHORUS BLOOD (03/02/2021 11:41 PM CDT) Phosphorus 4.0 2.8 - 5.1 mg/dL 03/03/2021 12:[address] [facility] Blood BLOOD SPECIMEN / Unknown Venipuncture / Unknown 03/02/2021 11:41 PM CDT 03/02/2021 11:45 PM CDT Fredy Felipe MD LAB - CHEMISTRY JOSE ENRIQUE VELA [address] [address], [facility] [phone] * MAGNESIUM BLOOD (03/02/2021 11:41 PM CDT) Magnesium 2.1 1.6 - 2.6 mg/dL 03/03/2021 12:[address] [facility] Blood BLOOD SPECIMEN / Unknown Venipuncture / Unknown 03/02/2021 11:41 PM CDT 03/02/2021 11:45 PM CDT Fredy Felipe MD LAB - CHEMISTRY JOSE ENRIQUE VELA Performing Organization Address City/[facility]/ZIP Co de Phone Number [address] [address], [facility] [phone] * (ABNORMAL) CALCIUM IONIZED WHOLE BLOOD (03/02/2021 11:41 PM CDT) Calcium Ionized 1.21 mmol/L 03/02/2021 11:47 PM CDT [facility] pH 7.49(H) 7.35 - 7.45 pH 03/02/2021 11:47 PM CDT [facility] Ionized Calcium pH Adjusted 1.26 1.19 - 1.34 mmol/L 03/02/2021 11:47 PM CDT [facility] Blood BLOOD SPECIMEN / Unknown Venipuncture / Unknown 03/02/2021 11:41 PM CDT 03/02/2021 11:44 PM CDT Fredy Felipe MD LAB - CHEMISTRY JOSE ENRIQUE VELA [facility] [address] [place] [address], [facility] [phone] * (ABNORMAL) URINALYSIS REFLEX TO MICROSCOPIC NO CULTURE (03/02/2021 6:52 PM CDT) Color UA Janis(A) Straw, Yellow 03/02/2021 7:[address] [facility] Clarity UA Slt Cloudy(A) Clear 03/02/2021 7:39 PM T [facility] Specific [place] UA 1.031(H) 1.005 - 1.030 03/02/2021 7:[address] [facility] pH UA 5.0 5.0 - 8.0 pH 03/02/2021 7:39 PM [facility] Protein UA 2+(A) Negative 03/02/2021 7:39 PM [facility] Glucose UA Negative Negative 03/02/2021 7:39 PM [facility] Ketone UA Trace(A) Negative 03/02/2021 7:39 PM [facility] Bilirubin UA Negative Negative 03/02/2021 7:39 PM [facility] Blood UA 2+(A) Negative 03/02/2021 7:39 PM [facility] Nitrite UA Negative Negative 03/02/2021 7:39 PM [facility] Leukocyte Esterase Negative Negative 03/02/2021 7:39 PM [facility] Urobilinogen UA Negative Negative mg/dL 03/02/2021 7:39 PM [facility] RBC UA 21-50(A) None Seen, 0-2, 3-5 /HPF 03/02/2021 7:39 PM [facility] WBC UA 6-10(A) None Seen, 0-5 /HPF 03/02/2021 7:39 PM [facility] Bacteria UA Trace(A) None /HPF 03/02/2021 7:39 PM [facility] Squamous Epithelial Cells UA None Seen None Seen, 0-2, 3-5 /HPF 03/02/2021 7:39 PM [facility] Mucus UA 1+ /LPF 03/02/2021 7:[address] [facility] Urine URINE SPECIMEN OBTAINED VIA [employer]INARY CATHETER / Unknown Collection / Unknown 03/02/2021 6:52 PM CDT 03/02/2021 7:[address] [facility] - 03/02/2021 7:39 PM CDT Delilah JEFFERY GROUP DIRECTOR LAB - URINALYSIS ORDERABLES [address] [address], [place] [phone] * UREA NITROGEN URINE RANDOM (03/02/2021 6:52 PM CDT) Urea Nitrogen Random Urine 1,057 Not Established mg/dL 03/02/2021 7:[address] [facility] Urine URINE SPECIMEN OBTAINED BY CLEAN CATCH PROCEDURE / Unknown Collection / Unknown 03/02/2021 6:52 PM CDT 03/02/2021 7:00 PM CDT Delilah Stubbs APRN-Tal GROUP DIRECTOR LAB - URINE CHEMISTRY ORDERABLES Performing Organization Address [facility]/ZIP Co de Phone Number [address] [address], [place] [phone] * CHLORIDE URINE RANDOM (03/02/2021 6:52 PM CDT) Chloride Random Urine 45 Not Established mmol/L 03/02/2021 7:[address] [facility] Urine URINE SPECIMEN OBTAINED BY CLEAN CATCH PROCEDURE / Unknown Collection / Unknown 03/02/2021 6:52 PM CDT 03/02/2021 7:00 PM CDT Delilah Stubbs APRN-Tal GROUP DIRECTOR LAB - URINE CHEMISTRY ORDERABLES [address] [address], [place] [phone] * LYTES (NA K) URINE RANDOM PANEL (03/02/2021 6:52 PM CDT) Sodium Urine 97 Not Established mmol/L 03/02/2021 7:33 PM CDT [facility] Potassium Urine 36.5 Not Established mmol/L 03/02/2021 7:33 PM CDT [facility] Urine URINE SPECIMEN OBTAINED BY CLEAN CATCH PROCEDURE / Unknown Collection / Unknown 03/02/2021 6:52 PM CDT 03/02/2021 7:00 PM CDT Delilah Stubbs APRN-Tal GROUP DIRECTOR LAB - URINE CHEMISTRY ORDERABLES Performing Organization Address City/[facility]/ZIP Co de Phone Number [address] [address], [facility] [phone] * CREATININE URINE RANDOM (03/02/2021 6:52 PM CDT) Creatinine Urine 135 Not Established mg/dL 03/02/2021 7:[address] [facility] Urine URINE SPECIMEN OBTAINED BY CLEAN CATCH PROCEDURE / Unknown Collection / Unknown 03/02/2021 6:52 PM CDT 03/02/2021 7:00 PM CDT Delilah Stubbs APRN-Tal GROUP DIRECTOR LAB - URINE CHEMISTRY ORDERABLES [address] [address], [facility] [phone] * (ABNORMAL) HEPATIC FUNCTION PANEL (03/02/2021 6:40 PM CDT) Protein Total 7.2 6.0 - 8.3 g/dL 7:40 PM CDT [facility] Albumin 1.8(L) 3.4 - 5.0 g/dL 03/02/2021 7:40 PM CDT [facility] Bilirubin Total 0.6 0.2 - 1.2 mg/dL 02/14 7:40 PM [facility] Bilirubin Conjugated 0.3 0.1 - 0.5 mg/dL 03/02/2021 7:40 PM [facility] Bilirubin Unconjugated 0.3 Unconjugated Bilirubin is a calculated value: Reference ranges have not been established. mg/dL 03/02/2021 7:40 PM [facility] Alkaline Phosphatase 226(H) 40 - 150 U/L 03/02/2021 7:40 PM [facility] ALT 27 5 - 55 U/L 03/02/2021 7:40 PM [facility] AST 46(H) 5 - 34 U/L 03/02/2021 7:40 PM [facility] Albumin/Globulin Ratio 0.3(L) 1.1 - 2.3 03/02/2021 7:40 PM [facility] Blood BLOOD SPECIMEN / Unknown Venipuncture / Unknown 03/02/2021 6:40 PM CDT 03/02/2021 6:46 PM CDT Delilah Stubbs APRN-Tal GROUP DIRECTOR LAB - CHEMISTRY ORDERABLES Performing Organization Address City/State/[facility] Co de Phone Number [facility] [address] [place] [phone], [facility] [phone] * (ABNORMAL) BASIC METABOLIC PANEL (CALCIUM TOTAL) (03/02/2021 6:40 PM CDT) BUN 20 7 - 26 mg/dL 03/02/2021 7:40 PM [facility] Creatinine 1.26(H) 0.71 - 1.16 mg/dL 03/02/2021 7:40 PM [facility] Sodium 139 136 - 145 mmol/L 03/02/2021 7:40 PM [facility] Potassium 3.8 3.5 - 4.5 mmol/L 03/02/2021 7:40 PM [facility] Chloride 105 98 - 107 mmol/L 03/02/2021 7:40 PM [facility] CO2 22 22 - 29 mmol/L 03/02/2021 7:40 PM [facility] Glucose 84 70 - 115 mg/dL 03/02/2021 7:40 PM [facility] Calcium 9.1 8.4 - 10.2 mg/dL 03/02/2021 7:40 PM [facility] Anion Gap 16 8 - 18 03/02/2021 7:40 PM [facility] BUN/Creatinine Ratio 16 7 - 23 03/02/2021 7:40 PM [facility] Osmolality Calculated 290 270 - 300 mOsm/kg 03/02/2021 7:40 PM [facility] eGFR by CKD-EPI 73(L) >=90 mL/min/1.7 3 m2 03/02/2021 7:40 PM [facility] Blood BLOOD SPECIMEN / Unknown Venipuncture / Unknown 03/02/2021 6:40 PM CDT 03/02/2021 6:46 PM CDT Delilah JEFFERY GROUP DIRECTOR LAB - CHEMISTRY ORDERABLES [facility] [address] [place] [address], [facility] [phone] * (ABNORMAL) BLOOD GASES ART + COOX PANEL (03/02/2021 5:54 AM CDT) pH Arterial 7.52(H) 7.35 - 7.45 pH 03/02/2021 5:58 AM [facility] pO2 Arterial 163(H) 80 - 100 mmHg 03/02/2021 5:58 AM [facility] pCO2 Arterial 27(L) 35 - 45 mmHg 5:58 AM [facility] HCO3 Arterial 22 20 - 30 mmol/l 03/02/2021 5:58 AM [facility] Arterial 0.0 -2.0 - 2.0 mmol/L 03/02/2021 5:58 AM [facility] Oxyhemoglobin Arterial 96.4 % 03/02/2021 5:58 AM [facility] Dexoyhemoglobin (HHB) % 0.4 % 03/02/2021 5:[address] [facility] Methemoglobin 0.9 0.0 - 2.0 % 03/02/2021 5:58 AM [facility] Carboxyhemoglobin 2.4(H) 0.0 - 2.0 % 2020 5:[address] [facility] O2 Content Arterial 15.1 Interpret within clinical context mg/dL 03/02/2021 5:58 AM [facility] Hemoglobin by COOX 10.9(L) 12.0 - 17.6 g/dL 03/02/2021 5:[address] [facility] O2 Saturation Arterial 100 90 - 100 % 03/02/2021 5:58 AM [facility] O2 Arterial 40.0 % 03/02/2021 5:[address] [facility] Blood, arterial ARTERIAL BLOOD SPECIMEN / Unknown Arterial Puncture / Unknown 03/02/2021 5:54 AM CDT 03/02/2021 5:[address] [facility] - 03/02/2021 5:58 AM CDT Carboxyhemoglobin Normal Concentration: Non-smokers: 0-2%; Smokers: 0-9%; Toxic: >20% Fredy Felipe MD LAB - BLOOD GASES OR DERABLES [facility] [address] [place] [phone], [facility] [phone] * XR CHEST 1VW PORTABLE (03/02/2021 4:22 [...] but stable. Dictated by Uyen Garcia MD (manager residential). This report was approved ??by Uyen Garcia [...] but stable. Dictated by Uyen Garcia MD (manager residential). This report was approved by Uyen Garcia on 03/02/2021 11:30 AM . I, Dr. JASWINDER CARRION have personally reviewed and interpreted this examination/study. This report was electronically signed by JASWINDER CARRION on 03/02/2021 11:30 AM . Fredy Felipe MD DIAGNOSTIC IMAGING O RDERABLES * (ABNORMAL) DIFFERENTIAL MANUAL (03/01/2021 11:16 PM [facility]) WBC (corrected for NRBC) 17.9 10? 3 /uL 03/02/2021 12:17 AM [facility] Total Cell Count 100 03/02/2021 12:17 AM [facility] Neutrophils Absolute Manual 14.50(H) 1.60 - 7.00 10? 3 /uL 03/02/2021 12:17 AM [facility] Comment:(BANDS+SEGS) x WBC = NEUT # (ANC) Lymphocyte Absolute Manual 0.36(L) 1.10 - 3.90 10? 3 /uL 03/02/2021 12:17 AM [facility] Monocytes Absolute Manual 2.51(H) 0.26 - 1.07 10? 3 /uL 03/02/2021 12:17 AM [facility] Eosinophils Absolute Manual 0.36 0.00 - 0.47 10? 3 /uL 03/02/2021 12:17 AM [facility] Basophil Absolute Manual 0.18(H) 0.00 - 0.08 10? 3 /uL 03/02/2021 12:17 AM [facility] Neutrophil % Manual 81(H) 35 - 70 % 03/02/2021 12:17 AM [facility] Lymphocyte % Manual 2(L) 20 - 43 % 03/02/2021 12:17 AM [facility] Monocytes % Manual 14(H) 5 - 13 % 03/02/2021 12:17 AM [facility] Eosinophils % Manual 2 0 - 6 % 03/02/2021 12:17 AM [facility] Basophils % Manual 1 0 - 2 % 03/02/2021 12:17 AM [facility] Platelet Estimate Increased( A) Adequate 03/02/2021 12:17 AM [facility] RBC Morphology Normal 03/02/2021 12:17 AM [facility] Blood BLOOD SPECIMEN / Unknown Venipuncture / Unknown 03/01/2021 11:16 PM CDT 03/01/2021 11:21 PM CDT Fredy Felipe MD LAB - HEMATOLOGY ORD ERABLES [facility] [address] [place] [address], [facility] [phone] * (ABNORMAL) HEPATIC FUNCTION PANEL (03/01/2021 11:16 PM CDT) Pathologist [facility] [place] Protein Total 6.7 6.0 - 8.3 g/dL 11:46 PM [facility] Albumin 1.5(L) 3.4 - 5.0 g/dL 03/01/2021 11:46 PM [facility] Bilirubin Total 0.6 0.2 - 1.2 mg/dL 02/14 11:46 PM [facility] Bilirubin Conjugated 0.5 0.1 - 0.5 mg/dL 03/01/2021 11:46 PM [facility] Bilirubin Unconjugated 0.1 Unconjugated Bilirubin is a calculated value: Reference ranges have not been established. mg/dL 03/01/2021 11:46 PM [facility] Alkaline Phosphatase 270(H) 40 - 150 U/L 03/01/2021 11:46 PM [facility] ALT 32 5 - 55 U/L 03/01/2021 11:46 PM [facility] AST 58(H) 5 - 34 U/L 03/01/2021 11:46 PM [facility] Albumin/Globulin Ratio 0.3(L) 1.1 - 2.3 03/01/2021 11:46 PM [facility] Blood BLOOD SPECIMEN / Unknown Venipuncture / Unknown 03/01/2021 11:16 PM CDT 03/01/2021 11:21 PM CDT Fredy Felipe MD LAB - CHEMISTRY ORDNolan VELA [facility] [address] [place] [address] [phone] * (ABNORMAL) CBC W AUTO DIFFERENTIAL (03/01/2021 11:16 PM CDT) WBC 17.9(H) 3.5 - 10.5 10? 3 /uL 03/01/2021 11:29 PM [facility] RBC 3.85(L) 4.30 - 5.70 10? 6 /uL 03/01/2021 11:29 PM [facility] Hemoglobin 10.6(L) 12.0 - 17.6 g/dL 03/01/2021 11:29 PM [facility] Hematocrit 33.0(L) 35.2 - 51.7 % 03/01/2021 11:29 PM [facility] MCV 85.7 80.7 - 98.3 fL 03/01/2021 11:29 PM [facility] MCH 27.5 26.7 - 34.0 pg 03/01/2021 11:29 PM [facility] MCHC 32.1 30.8 - 35.9 g/dL 03/01/2021 11:29 PM [facility] Platelet Count 615(H) 150 - 400 10? 3 /uL 03/01/2021 11:29 PM [facility] RDW-SD 42.8 36.0 - 50.0 fL 03/01/2021 11:29 PM [facility] RDW-CV 13.7 11.2 - 14.8 % 03/01/2021 11:29 PM [facility] MPV 8.7(L) 9.4 - 12.9 fL 03/01/2021 11:29 PM [facility] nRBC Absolute 0.00 0 10? 3 /uL 03/01/2021 11:29 PM [facility] nRBC Auto 0.0 0 /100 WBC 03/01/2021 11:29 PM [facility] Blood BLOOD SPECIMEN / Unknown Venipuncture / Unknown 03/01/2021 11:16 PM CDT 03/01/2021 11:21 PM CDT Fredy Felipe MD LAB - HEMATOLOGY [facility] [address] [place] [address], [facility] [phone] * (ABNORMAL) BASIC METABOLIC PANEL (CALCIUM TOTAL) (03/01/2021 11:16 PM CDT) BUN 21 7 - 26 mg/dL 03/01/2021 11:46 PM [facility] Creatinine 1.35(H) 0.71 - 1.16 mg/dL 03/01/2021 11:46 PM [facility] Sodium 142 136 - 145 mmol/L 03/01/2021 11:46 PM [facility] Potassium 3.7 3.5 - 4.5 mmol/L 03/01/2021 11:46 PM [facility] Chloride 108(H) 98 - 107 mmol/L 03/01/2021 11:46 PM [facility] CO2 20(L) 22 - 29 mmol/L 03/01/2021 11:46 PM [facility] Glucose 93 70 - 115 mg/dL 03/01/2021 11:46 PM [facility] Calcium 9.0 8.4 - 10.2 mg/dL 03/01/2021 11:46 PM [facility] Anion Gap 18 8 - 18 03/01/2021 11:46 PM [facility] BUN/Creatinine Ratio 16 7 - 23 03/01/2021 11:46 PM [facility] Osmolality Calculated 297 270 - 300 mOsm/kg 03/01/2021 11:46 PM [facility] eGFR by CKD-EPI 68(L) >=90 mL/min/1.7 3 m2 03/01/2021 11:46 PM [facility] Blood BLOOD SPECIMEN / Unknown Venipuncture / Unknown 03/01/2021 11:16 PM CDT 03/01/2021 11:21 PM CDT Fredy Felipe MD LAB - CHEMISTRY JOSE ENRIQUE VELA [facility] [address] [place] [address], [facility] [phone] * (ABNORMAL) BLOOD GASES ART + COOX PANEL (03/01/2021 11:16 PM [facility]) pH Arterial 7.58(H) 7.35 - 7.45 pH 03/01/2021 11:22 PM [facility] pO2 Arterial 164(H) 80 - 100 mmHg 03/01/2021 11:22 PM [facility] pCO2 Arterial 24(L) 35 - 45 mmHg 11:22 PM [facility] HCO3 Arterial 23 20 - 30 mmol/l 03/01/2021 11:22 PM [facility] Arterial 1.7 -2.0 - 2.0 mmol/L 03/01/2021 11:22 PM [facility] Oxyhemoglobin Arterial 96.4 % 03/01/2021 11:22 PM [facility] Dexoyhemoglobin (HHB) % 0.4 % 03/01/2021 11:22 PM [facility] Methemoglobin 1.3 0.0 - 2.0 % 03/01/2021 11:22 PM [facility] Carboxyhemoglobin 1.9 0.0 - 2.0 % 2020 11:22 PM [facility] O2 Content Arterial 15.8 Interpret within clinical context mg/dL 03/01/2021 11:22 PM [facility] Hemoglobin by COOX 11.4(L) 12.0 - 17.6 g/dL 03/01/2021 11:22 PM [facility] O2 Saturation Arterial 100 90 - 100 % 03/01/2021 11:22 PM [facility] FI O2 Arterial 40.0 % 03/01/2021 11:22 PM [facility] Blood, arterial ARTERIAL BLOOD SPECIMEN / Unknown Arterial Puncture / Unknown 03/01/2021 11:16 PM CDT 03/01/2021 11:20 PM [facility] - 03/01/2021 11:22 PM [facility] Carboxyhemoglobin Normal Concentration: Non-smokers: 0-2%; Smokers: 0-9%; Toxic: >20% Fredy Felipe MD LAB - BLOOD GASES OR DERABLES Performing Organization Address [facility]/ZIP Co de Phone Number [address] [address], [facility] [phone] * (ABNORMAL) PT-INR [facility] (03/01/2021 11:16 PM CDT) PT 14.9(H) 12.1 - 14.8 Seconds 03/01/2021 11:[address] [facility] INR 1.2 See Comment 03/01/2021 11:[address] [facility] Comment:The suggested therap eutic range for standard coumadin (warfarin) therapy is an INR of 2.0-3.0. For high-risk patients (Mechanical Mitral Valve Prosthesis, etc.), the suggested prophylactic therapeutic range is an INR of 2.5-3.5. Blood BLOOD SPECIMEN / Unknown Venipuncture / Unknown 03/01/2021 11:16 PM CDT 03/01/2021 11:20 PM CDT Fredy Felipe MD LAB - COAGULATION OR DERABLES Performing Organization Address [facility] Co de Phone Number [address] [address], [facility] [phone] * PHOSPHORUS BLOOD (03/01/2021 11:16 PM CDT) Pathologist [facility] [place] Phosphorus 3.7 2.8 - 5.1 mg/dL 03/01/2021 11:[address] [facility] Blood BLOOD SPECIMEN / Unknown Venipuncture / Unknown 03/01/2021 11:16 PM CDT 03/01/2021 11:21 PM CDT Fredy Felipe MD LAB - CHEMISTRY ORDNolan VELA Performing Organization Address City/[facility]/ZIP Co de Phone Number [address] [address], [facility] [phone] * MAGNESIUM BLOOD (03/01/2021 11:16 PM CDT) Magnesium 2.1 1.6 - 2.6 mg/dL 03/01/2021 11:[address] [facility] Blood BLOOD SPECIMEN / Unknown Venipuncture / Unknown 03/01/2021 11:16 PM CDT 03/01/2021 11:21 PM CDT Fredy Felipe MD LAB - CHEMISTRY JOSE ENRIQUE VELA [facility] [address] [place] [phone], [facility] [phone] * (ABNORMAL) CALCIUM IONIZED WHOLE BLOOD (03/01/2021 11:16 PM CDT) Calcium Ionized 1.18 mmol/L 03/01/2021 11:[address] [facility] pH 7.57(H) 7.35 - 7.45 pH 03/01/2021 11:[address] [facility] Ionized Calcium pH Adjusted 1.27 1.19 - 1.34 mmol/L 03/01/2021 11:[address] [facility] Blood BLOOD SPECIMEN / Unknown Venipuncture / Unknown 03/01/2021 11:16 PM CDT 03/01/2021 11:20 PM CDT Fredy Felipe MD LAB - CHEMISTRY JOSE ENRIQUE VELA Performing Organization Address [facility]/ZIP Co de Phone Number [facility] [address] [place] [phone], [facility] [phone] * XR CHEST 1VW PORTABLE (03/01/2021 4:20 [...] by NAOMY LAZO MD, FRCR on 03/03/2021 3:30 PM . Ferdy Felipe MD DIAGNOSTIC IMAGING O RDERABLES * (ABNORMAL) DIFFERENTIAL MANUAL (03/01/2021 12:11 AM CDT) WBC (corrected for NRBC) 15.6 10? 3 /uL 03/01/2021 1:34 AM CDT [facility] Total Cell Count 100 03/01/2021 1:34 AM CDT [facility] Neutrophils Absolute Manual 12.01(H) 1.60 - 7.00 10? 3 /uL 03/01/2021 1:34 AM [facility] Comment:(BANDS+SEGS) x WBC = NEUT # (ANC) Lymphocyte Absolute Manual 1.09(L) 1.10 - 3.90 10? 3 /uL 03/01/2021 1:[address] [facility] Monocytes Absolute Manual 1.87(H) 0.26 - 1.07 10? 3 /uL 03/01/2021 1:34 AM [facility] Eosinophils Absolute Manual 0.62(H) 0.00 - 0.47 10? 3 /uL 03/01/2021 1:34 AM [facility] Neutrophil % Manual 77(H) 35 - 70 % 03/01/2021 1:34 AM [facility] Lymphocyte % Manual 7(L) 20 - 43 % 03/01/2021 1:34 AM [facility] Monocytes % Manual 12 5 - 13 % 03/01/2021 1:34 AM [facility] Eosinophils % Manual 4 0 - 6 % 03/01/2021 1:34 AM [facility] Platelet Estimate Increased( A) Adequate 03/01/2021 1:34 AM [facility] RBC Morphology Normal 03/01/2021 1:34 AM [facility] Blood BLOOD SPECIMEN / Unknown Venipuncture / Unknown 03/01/2021 12:11 AM CDT 03/01/2021 12:18 AM CDT Fredy Felipe MD LAB - HEMATOLOGY ORD ERABLES [facility] [address] [place] [address], [facility] [phone] * (ABNORMAL) CBC W AUTO DIFFERENTIAL (03/01/2021 12:11 AM CDT) WBC 15.6(H) 3.5 - 10.5 10? 3 /uL 03/01/2021 12:[address] [facility] RBC 3.88(L) 4.30 - 5.70 10? 6 /uL 03/01/2021 12:42 AM [facility] Hemoglobin 10.6(L) 12.0 - 17.6 g/dL 03/01/2021 12:42 AM [facility] Hematocrit 32.8(L) 35.2 - 51.7 % 03/01/2021 12:42 AM [facility] MCV 84.5 80.7 - 98.3 fL 03/01/2021 12:42 AM [facility] MCH 27.3 26.7 - 34.0 pg 03/01/2021 12:42 AM [facility] MCHC 32.3 30.8 - 35.9 g/dL 03/01/2021 12:42 AM [facility] Platelet Count 573(H) 150 - 400 10? 3 /uL 03/01/2021 12:42 AM [facility] RDW-SD 42.7 36.0 - 50.0 fL 03/01/2021 12:42 AM [facility] RDW-CV 13.7 11.2 - 14.8 % 03/01/2021 12:42 AM [facility] MPV 8.8(L) 9.4 - 12.9 fL 03/01/2021 12:42 AM [facility] nRBC Absolute 0.00 0 10? 3 /uL 03/01/2021 12:42 AM [facility] nRBC Auto 0.0 0 /100 WBC 03/01/2021 12:42 AM [facility] Immature Platelet Fraction 0.6(L) 1.1 - 6.2 % 03/01/2021 12:42 AM [facility] Blood BLOOD SPECIMEN / Unknown Venipuncture / Unknown 03/01/2021 12:11 AM CDT 03/01/2021 12:18 AM CDT Fredy Felipe MD LAB - HEMATOLOGY ORD ERABLES [facility] [address] [place] [address], [facility] [phone] * (ABNORMAL) BASIC METABOLIC PANEL (CALCIUM TOTAL) (03/01/2021 12:11 AM CDT) BUN 23 7 - 26 mg/dL 03/01/2021 12:42 AM [facility] Creatinine 1.21(H) 0.71 - 1.16 mg/dL 03/01/2021 12:42 AM [facility] Sodium 141 136 - 145 mmol/L 03/01/2021 12:42 AM [facility] Potassium 3.9 3.5 - 4.5 mmol/L 03/01/2021 12:42 AM [facility] Chloride 107 98 - 107 mmol/L 03/01/2021 12:42 AM [facility] CO2 21(L) 22 - 29 mmol/L 03/01/2021 12:42 AM [facility] Glucose 93 70 - 115 mg/dL 03/01/2021 12:42 AM [facility] Calcium 9.3 8.4 - 10.2 mg/dL 03/01/2021 12:42 AM [facility] Anion Gap 17 8 - 18 03/01/2021 12:42 AM [facility] BUN/Creatinine Ratio 19 7 - 23 03/01/2021 12:42 AM [facility] Osmolality Calculated 295 270 - 300 mOsm/kg 03/01/2021 12:42 AM [facility] eGFR by CKD-EPI 77(L) >=90 mL/min/1.7 3 m2 03/01/2021 12:42 AM [facility] Blood BLOOD SPECIMEN / Unknown Venipuncture / Unknown 03/01/2021 12:11 AM CDT 03/01/2021 12:18 AM T Fredy Felipe MD LAB - CHEMISTRY JOSE ENRIQUE VELA [facility] Organization Address City/State/ZIP Co de Phone Number [facility] [address] [place] [address], [facility] [phone] * (ABNORMAL) BLOOD GASES ART + COOX PANEL (03/01/2021 12:11 AM CDT) pH Arterial 7.46(H) 7.35 - 7.45 pH 03/01/2021 12:22 AM [facility] pO2 Arterial 144(H) 80 - 100 mmHg 03/01/2021 12:22 AM [facility] pCO2 Arterial 33(L) 35 - 45 mmHg 12:22 AM [facility] HCO3 Arterial 24 20 - 30 mmol/l 03/01/2021 12:22 AM [facility] BE Arterial 0.1 -2.0 - 2.0 mmol/L 03/01/2021 12:22 AM [facility] Oxyhemoglobin Arterial 97.3 % 03/01/2021 12:22 AM [facility] Dexoyhemoglobin (HHB) % 0.2 % 03/01/2021 12:22 AM [facility] Methemoglobin <0.8 0.0 - 2.0 % 03/01/2021 12:22 AM [facility] Carboxyhemoglobin 1.8 0.0 - 2.0 % 2020 12:22 AM [facility] O2 Content Arterial 15.9 Interpret within clinical context mg/dL 03/01/2021 12:22 AM [facility] Hemoglobin by COOX 11.4(L) 12.0 - 17.6 g/dL 03/01/2021 12:22 AM [facility] O2 Saturation Arterial 100 90 - 100 % 03/01/2021 12:22 AM [facility] FI O2 Arterial 40.0 % 03/01/2021 12:22 AM [facility] Blood, arterial ARTERIAL BLOOD SPECIMEN / Unknown Arterial Puncture / Unknown 03/01/2021 12:11 AM T 03/01/2021 12:16 AM [facility] - 03/01/2021 12:22 AM [facility] Carboxyhemoglobin Normal Concentration: Non-smokers: 0-2%; Smokers: 0-9%; Toxic: >20% Fredy Felipe MD LAB - BLOOD GASES OR DERABLES [facility] [address] [place] [address], [facility] [phone] * PT-INR [facility] (03/01/2021 12:11 AM CDT) PT 14.0 12.1 - 14.8 Seconds 03/01/2021 12:[address] [facility] INR 1.1 See Comment 03/01/2021 12:[address] [facility] Comment:The suggested therap eutic range for standard coumadin (warfarin) therapy is an INR of 2.0-3.0. For high-risk patients (Mechanical Mitral Valve Prosthesis, etc.), the suggested prophylactic therapeutic range is an INR of 2.5-3.5. Blood BLOOD SPECIMEN / Unknown Venipuncture / Unknown 03/01/2021 12:11 AM CDT 03/01/2021 12:16 AM CDT Fredy Felipe MD LAB - COAGULATION OR DERABLES Performing Organization Address City/[facility]/ZIP Co de Phone Number [address] [address], [facility] [phone] * PHOSPHORUS BLOOD (03/01/2021 12:11 AM CDT) Phosphorus 3.9 2.8 - 5.1 mg/dL 03/01/2021 12:[address] [facility] Blood BLOOD SPECIMEN / Unknown Venipuncture / Unknown 03/01/2021 12:11 AM CDT 03/01/2021 12:18 AM CDT Fredy Felipe MD LAB - CHEMISTRY ORDE RABLES [address] [address], [facility] [phone] * MAGNESIUM BLOOD (03/01/2021 12:11 AM CDT) Magnesium 2.1 1.6 - 2.6 mg/dL 03/01/2021 12:[address] [facility] Blood BLOOD SPECIMEN / Unknown Venipuncture / Unknown 03/01/2021 12:11 AM CDT 03/01/2021 12:18 AM CDT Fredy Felipe MD LAB - CHEMISTRY JOSE ENRIQUE VELA Performing Organization Address [facility]/ZIP Co de Phone Number [address] [address], [facility] [phone] * CALCIUM IONIZED WHOLE BLOOD (03/01/2021 12:11 AM CDT) Calcium Ionized 1.21 mmol/L 03/01/2021 12:22 AM CDT [facility] pH 7.45 7.35 - 7.45 pH 03/01/2021 12:[address] [facility] Ionized Calcium pH Adjusted 1.24 1.19 - 1.34 mmol/L 03/01/2021 12:[address] [facility] Blood BLOOD SPECIMEN / Unknown Venipuncture / Unknown 03/01/2021 12:11 AM CDT 03/01/2021 12:16 AM CDT Fredy Felipe MD LAB - CHEMISTRY JOSE ENRIQUE VELA Performing Organization Address [facility]/ZIP Co de Phone Number [address] [address], [facility] [phone] * XR CHEST 1VW PORTABLE (02/28/2021 5:13 AM CDT) Anatomical Region Laterality Modality Chest Radiographic Sera ging 02/28/2021 1:26 PM CDT Impressions 02/28/2021 4:37 PM CDT IMPRESSION: No significant change, diffuse multifocal patchy opacities, may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 12.1 - 14.8 Seconds 02/25/2021 11:[address] [facility] INR 1.2 See Comment 02/25/2021 11:[address] [facility] Comment:The suggested therap eutic range for standard coumadin (warfarin) therapy is an INR of 2.0-3.0. For high-risk patients (Mechanical Mitral Valve Prosthesis, etc.), the suggested prophylactic therapeutic range is an INR of 2.5-3.5. Blood BLOOD SPECIMEN / Unknown Venipuncture / Unknown 02/25/2021 10:54 PM CDT 02/25/2021 10:57 PM CDT Fredy Felipe MD LAB - COAGULATION OR DERABLES [address] [address], [place] [phone] * PHOSPHORUS BLOOD (02/25/2021 10:54 PM CDT) Phosphorus 4.3 2.8 - 5.1 mg/dL 02/25/2021 11:[address] [facility] Blood BLOOD SPECIMEN / Unknown Venipuncture / Unknown 02/25/2021 10:54 PM CDT 02/25/2021 10:57 PM CDT Fredy Felipe MD LAB - CHEMISTRY [facility] [address] [address], [place] [phone] * MAGNESIUM BLOOD (02/25/2021 10:54 PM CDT) Magnesium 2.3 1.6 - 2.6 mg/dL 02/25/2021 11:[address] [facility] Blood BLOOD SPECIMEN / Unknown Venipuncture / Unknown 02/25/2021 10:54 PM CDT 02/25/2021 10:57 PM CDT Fredy Felipe MD LAB - CHEMISTRY [facility] Performing Organization Address [facility]/ZIP Co de Phone Number [address] [address], [place] [phone] * (ABNORMAL) CALCIUM IONIZED WHOLE BLOOD (02/25/2021 10:54 PM CDT) Calcium Ionized 1.08 mmol/L 02/25/2021 10:[address] [facility] pH 7.49(H) 7.35 - 7.45 pH 02/25/2021 10:[address] [facility] Ionized Calcium pH Adjusted 1.12(L) 1.19 - 1.34 mmol/L 02/25/2021 10:[address] [facility] Blood BLOOD SPECIMEN / Unknown Venipuncture / Unknown 02/25/2021 10:54 PM CDT 02/25/2021 10:57 PM CDT Fredy Felipe MD LAB - CHEMISTRY [facility] Performing Organization Address City/[facility]/ZIP Co de Phone Number [address] [address], [place] [phone] * (ABNORMAL) CULTURE RESPIRATORY+GRAM STAIN (STL) (02/25/2021 3:39 PM CDT) [facility] Culture Moderate Klebsiella (formerly Enterobacter) aerogenes(A) CALISTA 02/27/2021 11:50 AM CDT [facility] Culture Moderate Haemophilus influenzae(A) 02/27/2021 11:50 AM CDT [facility] Comment:Beta-lactamase negat elvira Culture Rare normal oropharyngeal zi CALISTA 02/27/2021 11:50 AM CDT [facility] Gram Stain Light Gram-negative bacilli 02/27/2021 11:50 AM CDT [facility] Gram Stain Rare Polymorphonuclear cells 02/27/2021 11:50 AM CDT [facility] Microbiology SPECIMEN FROM ENDOTRACHEAL TUBE / Unknown Collection / Unknown 02/25/2021 3:39 PM CDT 02/25/2021 3:59 PM CDT Narrative [facility] - 02/27/2021 11:50 AM [...] le CALISTA <=20 ug/mL: Susceptible Delilah Stubbs APRN-Tal GROUP DIRECTOR LAB - MICROBIOLOGY ORDERABLES [facility] [address] [place] [address], [facility] [phone] * (ABNORMAL) URINALYSIS REFLEX TO MICROSCOPIC NO CULTURE (02/25/2021 5:39 AM CDT) Color UA Janis(A) Straw, Yellow 02/25/2021 5:57 AM [facility] Clarity UA Cloudy(A) Clear 02/25/2021 5:57 AM [facility] Specific [place] UA 1.021 1.005 - 1.030 02/25/2021 5:57 AM [facility] pH UA 5.0 5.0 - 8.0 pH 02/25/2021 5:57 AM [facility] Protein UA 2+(A) Negative 02/25/2021 5:57 AM [facility] Glucose UA Negative Negative 02/25/2021 5:57 AM [facility] Ketone UA Negative Negative 02/25/2021 5:57 AM [facility] Bilirubin UA Negative Negative 02/25/2021 5:57 AM [facility] Blood UA 3+(A) Negative 02/25/2021 5:57 AM [facility] Nitrite UA Negative Negative 02/25/2021 5:57 AM [facility] Leukocyte Esterase 2+(A) Negative 02/25/2021 5:57 AM [facility] Urobilinogen UA Negative Negative mg/dL 02/25/2021 5:57 AM [facility] RBC UA >100(A) None Seen, 0-2, 3-5 /HPF 02/25/2021 5:57 AM [facility] WBC UA 51-100(A) None Seen, 0-5 /HPF 02/25/2021 5:57 AM [facility] WBC Clumps Occasional( A) None /HPF 02/25/2021 5:57 AM [facility] Bacteria UA 3+(A) None /HPF 02/25/2021 5:57 AM [facility] Squamous Epithelial Cells UA 0-2 None Seen, 0-2, 3-5 /HPF 02/25/2021 5:[address] [facility] Mucus UA 1+ /LPF 02/25/2021 5:[address] [facility] Urine URINE SPECIMEN OBTAINED VIA INDWELLING URINARY CATHETER / Unknown Collection / Unknown 02/25/2021 5:39 AM CDT 02/25/2021 5:[address] [facility] - 02/25/2021 5:57 AM CDT Delilahrossy Muñiz Evelyne DIRECTOR OF EARLY CHILDHOOD EDUCATION-Tal GROUP DIRECTOR LAB - URINALYSIS ORDERABLES [facility] [address] [place] [address], [facility] [phone] * XR CHEST 1VW PORTABLE (02/25/2021 5:29 [...] is stable. Dictated by Rico Sawant DO (manager residential). I, Dr. TAINA PAVON have personally reviewed [...] is stable. Dictated by Rico Sawant DO (manager residential). I, Dr. TAINA PAVON have personally reviewed and interpreted this examination/study. This report was electronically signed by TAINA PAVON on 02/25/2021 2:15 PM . Fredy Felipe MD DIAGNOSTIC IMAGING O RDERABLES * (ABNORMAL) BCID PANEL (02/25/2021 5:25 AM CDT) Staphylococcus Detected(A) Not Detected, Indetermin ate, Invalid 02/26/2021 11:56 AM CDT [facility] Comment:Coagulase-negative s taphylococci (CoNS) detected by nucleic acid testing. CoNS are the most common skin contaminants grown in blood cultures and positive results must be interpreted in the appropriate clinical context. Susceptibilty testing performed on clinically significant isolates. Staphylococcus aureus Not Detected Not Detected, Indetermin ate, Invalid 02/26/2021 11:56 AM CDT [facility] Enterococcus Not Detected Not Detected, Indetermin ate, Invalid 02/26/2021 11:56 AM CDT [facility] Streptococcus Not Detected Not Detected, Indetermin ate, Invalid 02/26/2021 11:56 AM CDT [facility] Streptococcus pyogenes (Group A) Not Detected Not Detected, Indetermin ate, Invalid 02/26/2021 11:56 AM CDT [facility] Streptococcus agalactiae (Group B) Not Detected Not Detected, Indetermin ate, Invalid 02/26/2021 11:56 AM CDT [facility] Streptococcus pneumoniae Not Detected Not Detected, Invalid 02/26/2021 11:56 AM CDT [facility] Blood PERIPHERAL BLOOD / Unknown Venipuncture / Unknown 02/25/2021 5:25 AM CDT 02/25/2021 5:30 AM CDT Delilah Stubbs APRN-Tal GROUP DIRECTOR LAB - MICROBIOLOGY ORDERABLES Performing Organization Address [facility] Co de Phone Number [facility] [address] [place] [address], [facility] [phone] * (ABNORMAL) CULTURE BLOOD (02/25/2021 5:25 AM CDT) Culture Growth of Staphylococcus lugdunensis(AA) CALISTA 03/02/2021 8:09 AM CDT [facility] Comment:Possible contaminant unless multiple cultures are positive for the same isolate. Blood PERIPHERAL BLOOD / Unknown Venipuncture / Unknown 02/25/2021 5:25 AM CDT 02/25/2021 5:30 AM CDT Narrative [facility] - 03/02/2021 8:09 AM CDT Positive at 1 day and 1 hour Delilah Stubbs APRN-Tal GROUP DIRECTOR LAB - MICROBIOLOGY ORDERABLES Performing Organization Address [facility] Phone Number [facility] [address] [place] [address], [facility] [phone] * CULTURE BLOOD (02/25/2021 5:16 AM CDT) Culture No growth day 5 CALISTA 03/02/2021 8:00 AM CDT [facility] Blood PERIPHERAL BLOOD / Unknown Venipuncture / Unknown 02/25/2021 5:16 AM CDT 02/25/2021 5:30 AM CDT Delilah Stubbs APRN-Tal GROUP DIRECTOR LAB - MICROBIOLOGY ORDERABLES Performing Organization Address [facility] de Phone Number [facility] [address] [place] [address] [phone] * (ABNORMAL) CBC W AUTO DIFFERENTIAL (02/25/2021 2:36 AM CDT) WBC 27.1(H) 3.5 - 10.5 10? 3 /uL 02/25/2021 3:03 AM [facility] Comment:All CBC parameters h ave been checked. RBC 4.89 4.30 - 5.70 10? 6 /uL 02/25/2021 3:03 AM [facility] Hemoglobin 13.7 12.0 - 17.6 g/dL 02/25/2021 3:03 AM [facility] Hematocrit 42.9 35.2 - 51.7 % 02/25/2021 3:03 AM [facility] MCV 87.7 80.7 - 98.3 fL 02/25/2021 3:03 AM [facility] MCH 28.0 26.7 - 34.0 pg 02/25/2021 3:03 AM [facility] MCHC 31.9 30.8 - 35.9 g/dL 02/25/2021 3:03 AM [facility] Platelet Count 487(H) 150 - 400 10? 3 /uL 02/25/2021 3:03 AM [facility] RDW-SD 44.1 36.0 - 50.0 fL 02/25/2021 3:03 AM [facility] RDW-CV 13.7 11.2 - 14.8 % 02/25/2021 3:03 AM [facility] MPV 9.0(L) 9.4 - 12.9 fL 02/25/2021 3:03 AM [facility] nRBC Absolute 0.00 0 10? 3 /uL 02/25/2021 3:03 AM [facility] nRBC Auto 0.0 0 /100 WBC 02/25/2021 3:03 AM [facility] Neutrophils % 88.7(H) 35.0 - 70.0 % 02/25/2021 3:03 AM [facility] Lymphocytes % 4.1(L) 20.0 - 43.0 % 02/25/2021 3:03 AM [facility] Monocytes % 2.8(L) 5.0 - 13.0 % 02/25/2021 3:03 AM [facility] Eosinophils % 2.2 0.0 - 6.0 % 02/25/2021 3:03 AM [facility] Basophil % 0.4 0.0 - 2.0 % 02/25/2021 3:03 AM [facility] Neutrophils Absolute 24.0(H) 1.6 - 7.0 10? 3 /uL 02/25/2021 3:03 AM [facility] Lymphocyte Absolute 1.1 1.1 - 3.9 10? 3 /uL 02/25/2021 3:03 AM [facility] Monocytes Absolute 0.77 0.26 - 1.07 10? 3 /uL 02/25/2021 3:03 AM [facility] Eosinophils Absolute 0.59(H) 0.00 - 0.47 10? 3 /uL 02/25/2021 3:03 AM [facility] Basophils Absolute 0.10(H) 0.00 - 0.08 10? 3 /uL 02/25/2021 3:03 AM [facility] Immature Granulocytes % 1.8(H) 0.0 - 1.0 % 02/25/2021 3:03 AM [facility] Immature Granulocytes Absolute 0.50 02/25/2021 3:03 AM [facility] Blood BLOOD SPECIMEN / Unknown Venipuncture / Unknown 02/25/2021 2:36 AM CDT 02/25/2021 2:46 AM CDT Fredy Felipe MD LAB - HEMATOLOGY ORD ERABLES [facility] [address] [place] [address], [facility] [phone] * (ABNORMAL) BASIC METABOLIC PANEL (CALCIUM TOTAL) (02/25/2021 2:36 AM CDT) BUN 7 7 - 26 mg/dL 02/25/2021 3:11 AM [facility] Creatinine 1.02 0.71 - 1.16 mg/dL 02/25/2021 3:11 AM [facility] Sodium 137 136 - 145 mmol/L 02/25/2021 3:11 AM [facility] Potassium 4.8(H) 3.5 - 4.5 mmol/L 02/25/2021 3:11 AM [facility] Chloride 103 98 - 107 mmol/L 02/25/2021 3:11 AM [facility] CO2 21(L) 22 - 29 mmol/L 02/25/2021 3:11 AM [facility] Glucose 142(H) 70 - 115 mg/dL 02/25/2021 3:11 AM [facility] Calcium 8.8 8.4 - 10.2 mg/dL 02/25/2021 3:11 AM [facility] Anion Gap 18 8 - 18 02/25/2021 3:11 AM [facility] BUN/Creatinine Ratio 7 7 - 23 02/25/2021 3:11 AM [facility] Osmolality Calculated 284 270 - 300 mOsm/kg 02/25/2021 3:11 AM [facility] eGFR by CKD-EPI >90 >=90 mL/min/1.7 3 m2 02/25/2021 3:11 AM [facility] Blood BLOOD SPECIMEN / Unknown Venipuncture / Unknown 02/25/2021 2:36 AM CDT 02/25/2021 2:46 AM T Fredy Felipe MD LAB - CHEMISTRY JOSE ENRIQUE VELA [facility] Organization Address City/State/ZIP Co de Phone Number [facility] [address] [place] [address], [facility] [phone] * (ABNORMAL) BLOOD GASES ART + COOX PANEL (02/25/2021 2:36 AM CDT) pH Arterial 7.40 7.35 - 7.45 pH 02/25/2021 2:49 AM [facility] pO2 Arterial 119(H) 80 - 100 mmHg 02/25/2021 2:49 AM [facility] pCO2 Arterial 39 35 - 45 mmHg 2:49 AM [facility] HCO3 Arterial 24 20 - 30 mmol/l 02/25/2021 2:49 AM [facility] BE Arterial -0.5 -2.0 - 2.0 mmol/L 02/25/2021 2:49 AM [facility] Oxyhemoglobin Arterial 96.4 % 02/25/2021 2:49 AM [facility] Dexoyhemoglobin (HHB) % 0.5 % 02/25/2021 2:49 AM [facility] Methemoglobin 1.4 0.0 - 2.0 % 02/25/2021 2:49 AM [facility] Carboxyhemoglobin 1.7 0.0 - 2.0 % 2020 2:49 AM [facility] O2 Content Arterial 19.3 Interpret within clinical context mg/dL 02/25/2021 2:49 AM [facility] Hemoglobin by COOX 14.1 12.0 - 17.6 g/dL 02/25/2021 2:49 AM [facility] O2 Saturation Arterial 100 90 - 100 % 02/25/2021 2:49 AM [facility] FI O2 Arterial 60.0 % 02/25/2021 2:49 AM [facility] Blood, arterial ARTERIAL BLOOD SPECIMEN / Unknown Arterial Puncture / Unknown 02/25/2021 2:36 AM CDT 02/25/2021 2:46 AM [facility] - 02/25/2021 2:49 AM [facility] Carboxyhemoglobin Normal Concentration: Non-smokers: 0-2%; Smokers: 0-9%; Toxic: >20% Fredy Felipe MD LAB - BLOOD GASES OR DERABLES [facility] [address] [place] [phone], [facility] [phone] * PT-INR [facility] (02/25/2021 2:36 AM CDT) PT 13.5 12.1 - 14.8 Seconds 02/25/2021 3:[address] [facility] INR 1.1 See Comment 02/25/2021 3:[address] [facility] Comment:The suggested therap eutic range for standard coumadin (warfarin) therapy is an INR of 2.0-3.0. For high-risk patients (Mechanical Mitral Valve Prosthesis, etc.), the suggested prophylactic therapeutic range is an INR of 2.5-3.5. Blood BLOOD SPECIMEN / Unknown Venipuncture / Unknown 02/25/2021 2:36 AM CDT 02/25/2021 2:46 AM CDT Fredy Felipe MD LAB - COAGULATION OR DERABLES Performing Organization Address [facility] Co de Phone Number [address] [address], [facility] [phone] * PHOSPHORUS BLOOD (02/25/2021 2:36 AM CDT) Phosphorus 4.8 2.8 - 5.1 mg/dL 02/25/2021 3:[address] [facility] Blood BLOOD SPECIMEN / Unknown Venipuncture / Unknown 02/25/2021 2:36 AM CDT 02/25/2021 2:46 AM CDT Fredy Felipe MD LAB - CHEMISTRY JOSE ENRIQUE VELA Performing Organization Address [facility] Co de Phone Number [address] [address], [facility] [phone] * MAGNESIUM BLOOD (02/25/2021 2:36 AM CDT) Magnesium 1.6 1.6 - 2.6 mg/dL 02/25/2021 3:[address] [facility] Blood BLOOD SPECIMEN / Unknown Venipuncture / Unknown 02/25/2021 2:36 AM CDT 02/25/2021 2:46 AM CDT Fredy Felipe MD LAB - CHEMISTRY JOSE ENRIQUE VELA Performing Organization Address City/[facility]/ZIP Co de Phone Number [address] [address], [facility] [phone] * (ABNORMAL) CALCIUM IONIZED WHOLE BLOOD (02/25/2021 2:36 AM CDT) Calcium Ionized 1.10 mmol/L 02/25/2021 2:[address] [facility] pH 7.42 7.35 - 7.45 pH 02/25/2021 2:49 AM CDT [facility] Ionized Calcium pH Adjusted 1.11(L) 1.19 - 1.34 mmol/L 02/25/2021 2:[address] [facility] Blood BLOOD SPECIMEN / Unknown Venipuncture / Unknown 02/25/2021 2:36 AM CDT 02/25/2021 2:46 AM CDT Fredy Felipe MD LAB - CHEMISTRY JOSE ENRIQUE VELA Performing Organization Address [facility] Co de Phone Number [address] [address], [facility] [phone] * XR ABDOMEN KUB PORTABLE (02/25/2021 1:32 AM CDT) Anatomical Region Laterality Modality Abdomen Radiographic Sera ging 02/25/2021 8:31 AM CDT Impressions 02/25/2021 1:30 PM CDT IMPRESSION: Examination limited by patient's obesity. Non-obstructive bowel gas pattern, no evidence of retained surgical material. Dictated by Rico Sawant D.O. (Pet Caregiver) I, Dr. TAINA PAVON have personally reviewed [...] surgical material. Dictated by Rico Sawant D.O. (Pet Caregiver) I, Dr. TAINA PAVON have personally reviewed and interpreted this examination/study. This report was electronically signed by TAINA PAVON on 02/25/2021 1:30 PM . Nena Obrien DO DIAGNOSTIC IMAGING O RDERABLES * TYPE + SCREEN PANEL (02/24/2021 10:10 AM CDT) Antibody Screen NEG 11:29 AM CDT [facility] ABO Rh O POS 02/24/2021 11:29 AM CDT [facility] Blood Bank BLOOD SPECIMEN / Unknown Venipuncture / Unknown 02/24/2021 10:10 AM CDT 02/24/2021 10:35 AM CDT Mario Garcia MD LAB - BLOOD BANK ORD ERABLES [facility] [address] [place] [address], [facility] [phone] * XR CHEST 1VW PORTABLE (02/24/2021 5:51 [...] Report dictated by Simone Alexander MD, PhD (manager residential). I, Dr. TAINA PAVON have personally reviewed [...] Report dictated by Simone Alexander MD, PhD (manager residential). I, Dr. TAINA PAVON have personally reviewed and interpreted this examination/study. This report was electronically signed by TAINA PAVON on 02/25/2021 1:44 PM . Fredy Felipe MD DIAGNOSTIC IMAGING O RDERABLES * (ABNORMAL) CBC W AUTO DIFFERENTIAL (02/24/2021 12:28 AM T) WBC 13.9(H) 3.5 - 10.5 10? 3 /uL 02/24/2021 12:42 AM [facility] RBC 4.24(L) 4.30 - 5.70 10? 6 /uL 02/24/2021 12:42 AM [facility] Hemoglobin 11.8(L) 12.0 - 17.6 g/dL 02/24/2021 12:42 AM [facility] Hematocrit 36.4 35.2 - 51.7 % 02/24/2021 12:42 AM [facility] MCV 85.8 80.7 - 98.3 fL 02/24/2021 12:42 AM [facility] MCH 27.8 26.7 - 34.0 pg 02/24/2021 12:42 AM [facility] MCHC 32.4 30.8 - 35.9 g/dL 02/24/2021 12:42 AM [facility] Platelet Count 402(H) 150 - 400 10? 3 /uL 02/24/2021 12:42 AM [facility] RDW-SD 42.7 36.0 - 50.0 fL 02/24/2021 12:42 AM [facility] RDW-CV 13.8 11.2 - 14.8 % 02/24/2021 12:42 AM [facility] MPV 9.0(L) 9.4 - 12.9 fL 02/24/2021 12:42 AM [facility] nRBC Absolute 0.00 0 10? 3 /uL 02/24/2021 12:42 AM [facility] nRBC Auto 0.0 0 /100 WBC 02/24/2021 12:42 AM [facility] Neutrophils % 76.6(H) 35.0 - 70.0 % 02/24/2021 12:42 AM [facility] Lymphocytes % 10.0(L) 20.0 - 43.0 % 02/24/2021 12:42 AM [facility] Monocytes % 7.6 5.0 - 13.0 % 02/24/2021 12:42 AM [facility] Eosinophils % 3.8 0.0 - 6.0 % 02/24/2021 12:42 AM [facility] Basophil % 0.4 0.0 - 2.0 % 02/24/2021 12:42 AM [facility] Neutrophils Absolute 10.7(H) 1.6 - 7.0 10? 3 /uL 02/24/2021 12:42 AM [facility] Lymphocyte Absolute 1.4 1.1 - 3.9 10? 3 /uL 02/24/2021 12:42 AM [facility] Monocytes Absolute 1.06 0.26 - 1.07 10? 3 /uL 02/24/2021 12:42 AM [facility] Eosinophils Absolute 0.53(H) 0.00 - 0.47 10? 3 /uL 02/24/2021 12:42 AM [facility] Basophils Absolute 0.05 0.00 - 0.08 10? 3 /uL 02/24/2021 12:42 AM [facility] Immature Granulocytes % 1.6(H) 0.0 - 1.0 % 02/24/2021 12:42 AM [facility] Immature Granulocytes Absolute 0.22 02/24/2021 12:42 AM [facility] Blood BLOOD SPECIMEN / Unknown Venipuncture / Unknown 02/24/2021 12:28 AM CDT 02/24/2021 12:37 AM T Fredy Felipe MD LAB - HEMATOLOGY ORD ISABELBLES [facility] [address] [place] [address], [facility] [phone] * (ABNORMAL) BASIC METABOLIC PANEL (CALCIUM TOTAL) (02/24/2021 12:28 AM CDT) BUN 6(L) 7 - 26 mg/dL 02/24/2021 1:02 AM [facility] Creatinine 0.65(L) 0.71 - 1.16 mg/dL 02/24/2021 1:02 AM [facility] Sodium 138 136 - 145 mmol/L 02/24/2021 1:02 AM [facility] Potassium 4.2 3.5 - 4.5 mmol/L 02/24/2021 1:02 AM [facility] Chloride 103 98 - 107 mmol/L 02/24/2021 1:02 AM [facility] CO2 25 22 - 29 mmol/L 02/24/2021 1:02 AM [facility] Glucose 131(H) 70 - 115 mg/dL 02/24/2021 1:02 AM [facility] Calcium 8.4 8.4 - 10.2 mg/dL 02/24/2021 1:02 AM [facility] Anion Gap 14 8 - 18 02/24/2021 1:02 AM [facility] BUN/Creatinine Ratio 9 7 - 23 02/24/2021 1:02 AM [facility] Osmolality Calculated 285 270 - 300 mOsm/kg 02/24/2021 1:02 AM [facility] eGFR by CKD-EPI >90 >=90 mL/min/1.7 3 m2 02/24/2021 1:02 AM [facility] Blood BLOOD SPECIMEN / Unknown Venipuncture / Unknown 02/24/2021 12:28 AM CDT 02/24/2021 12:37 AM T Fredy Felipe MD LAB - CHEMISTRY JOSE ENRIQUE VELA [facility] [address] [place] [address] [phone] * (ABNORMAL) BLOOD GASES ART + COOX PANEL (02/24/2021 12:28 AM [facility]) pH Arterial 7.44 7.35 - 7.45 pH 02/24/2021 12:37 AM [facility] pO2 Arterial 110(H) 80 - 100 mmHg 02/24/2021 12:37 AM [facility] pCO2 Arterial 41 35 - 45 mmHg 12:37 AM [facility] HCO3 Arterial 28 20 - 30 mmol/l 02/24/2021 12:37 AM [facility] BE Arterial 3.3(H) -2.0 - 2.0 mmol/L 02/24/2021 12:37 AM [facility] Oxyhemoglobin Arterial 96.5 % 02/24/2021 12:37 AM [facility] Dexoyhemoglobin (HHB) % 1.0 % 02/24/2021 12:37 AM [facility] Methemoglobin <0.8 0.0 - 2.0 % 02/24/2021 12:37 AM [facility] Carboxyhemoglobin 1.8 0.0 - 2.0 % 2020 12:37 AM [facility] O2 Content Arterial 16.6 Interpret within clinical context mg/dL 02/24/2021 12:37 AM [facility] Hemoglobin by COOX 12.1 12.0 - 17.6 g/dL 02/24/2021 12:37 AM [facility] O2 Saturation Arterial 99 90 - 100 % 02/24/2021 12:37 AM [facility] FI O2 Arterial 45.0 % 02/24/2021 12:37 AM [facility] Blood, arterial ARTERIAL BLOOD SPECIMEN / Unknown Arterial Puncture / Unknown 02/24/2021 12:28 AM CDT 02/24/2021 12:34 AM [facility] - 02/24/2021 12:37 AM [facility] Carboxyhemoglobin Normal Concentration: Non-smokers: 0-2%; Smokers: 0-9%; Toxic: >20% Fredy Felipe MD LAB - BLOOD GASES OR DERABLES [address] [address], [place] [phone] * PT-INR [facility] (02/24/2021 12:28 AM CDT) PT 14.2 12.1 - 14.8 Seconds 02/24/2021 12:[address] [facility] INR 1.1 See Comment 02/24/2021 12:[address] [facility] Comment:The suggested therap eutic range for standard coumadin (warfarin) therapy is an INR of 2.0-3.0. For high-risk patients (Mechanical Mitral Valve Prosthesis, etc.), the suggested prophylactic therapeutic range is an INR of 2.5-3.5. Blood BLOOD SPECIMEN / Unknown Venipuncture / Unknown 02/24/2021 12:28 AM CDT 02/24/2021 12:37 AM CDT Fredy Felipe MD LAB - COAGULATION OR DERABLES Performing Organization Address City/[facility]/ZIP Co de Phone Number [address] [address], [place] [phone] * PHOSPHORUS BLOOD (02/24/2021 12:28 AM CDT) Pathologist [facility] [place] Phosphorus 3.9 2.8 - 5.1 mg/dL 02/24/2021 1:[address] [facility] Blood BLOOD SPECIMEN / Unknown Venipuncture / Unknown 02/24/2021 12:28 AM CDT 02/24/2021 12:37 AM CDT Fredy Felipe MD LAB - CHEMISTRY JOSE ENRIQUE VELA [address] [address], [place] [phone] * MAGNESIUM BLOOD (02/24/2021 12:28 AM CDT) Pathologist [facility] [place] Magnesium 1.8 1.6 - 2.6 mg/dL 02/24/2021 1:[address] [facility] Blood BLOOD SPECIMEN / Unknown Venipuncture / Unknown 02/24/2021 12:28 AM CDT 02/24/2021 12:37 AM CDT Fredy Felipe MD LAB - CHEMISTRY JOSE ENRIQUE VELA Performing Organization Address [facility]/ZIP Co de Phone Number [address] [address], [facility] [phone] * (ABNORMAL) CALCIUM IONIZED WHOLE BLOOD (02/24/2021 12:28 AM CDT) Pathologist [facility] [place] Calcium Ionized 1.16 mmol/L 02/24/2021 12:[address] [facility] pH 7.45 7.35 - 7.45 pH 02/24/2021 12:[address] [facility] Ionized Calcium pH Adjusted 1.18(L) 1.19 - 1.34 mmol/L 02/24/2021 12:[address] [facility] Blood BLOOD SPECIMEN / Unknown Venipuncture / Unknown 02/24/2021 12:28 AM CDT 02/24/2021 12:34 AM CDT Fredy Felipe MD LAB - CHEMISTRY JOSE ENRIQUE VELA Performing Organization Address [facility] Co de Phone Number [address] [address], [facility] [phone] * XR CHEST 1VW PORTABLE (02/23/2021 5:05 AM CDT) Anatomical Region Laterality Modality Chest Radiographic Sera ging 02/23/2021 5:19 AM CDT Impressions 02/23/2021 10:53 AM CDT FINDINGS/IMPRESSION: An endotracheal tube terminates in mid thoracic trachea. A left subclavian approach central venous catheter terminates in the left brachiocephalic vein. A gastric tube courses to the stomach out of the [id number]. A right thoracostomy tube is unchanged in position. Small bilateral pleural effusions are suggested. Bibasilar airspace opacities may represent atelectasis and/or airspace disease. There is no pneumothorax. The cardiomediastinal silhouette is partially obscured. Dictated by Alverto Ames MD (manager residential). I, Dr. NENA CLEMENTE have personally reviewed and interpreted this examination/study. This report was electronically signed by NENA CLEMENTE ??on 02/23/2021 10:53 AM . Narrative 02/23/2021 10:53 AM CDT EXAMINATION: XR CHEST 1VW PORTABLE, 02/23/2021 5:05 AM HISTORY: T14.90XA: Trauma COMPARISON: Comparison is made with a study from 02/22/2021. Procedure Note Nena Clemente, DO - 02/23/2021 EXAMINATION: XR CHEST 1VW PORTABLE, 02/23/2021 5:05 AM HISTORY: T14.90XA: Trauma COMPARISON: Comparison is made with a study from 02/22/2021. FINDINGS/IMPRESSION: An endotracheal tube terminates in mid thoracic trachea. A left subclavian approach central venous catheter terminates in theleft brachiocephalic vein. A gastric tube courses to the stomach out of the [id number]. A right thoracostomy tube is unchanged in position. Small bilateral pleural effusions are suggested. Bibasilar airspace opacities may represent atelectasis and/or airspace disease. There is no pneumothorax. The cardiomediastinal silhouette is partially obscured. Dictated by Alverto Ames MD (manager residential). I, Dr. NENA CLEMENTE have personally reviewed and interpreted this examination/study. This report was electronically signed by NENA CLEMENTE on 02/23/2021 10:53 AM . Fredy Felipe MD DIAGNOSTIC IMAGING O RDERABLES * PREPARE (CROSSMATCH) RBC UNIT(S), 2 Units (02/23/2021 1:17 AM CDT) Unit Description AS1 LR PRBC [facility] Unit ABO O [facility] Unit Rh POS [facility] Product Number R02 [facility] B LOOD [facility] LAB Unit Donor # [id number] [facility] Unit Status released [facility] BLOO D BANK LAB Product [facility] [id number] [facility] BLO OD [facility]ANK LAB Blood Type Barcode 5100 [facility] Expiration Date S BLOOD BANK LAB Unit Description AS1 LR PRBC [facility] Unit ABO O [facility] Unit Rh POS [facility] Product [facility] R02 [facility] B LOOD [facility] Unit Donor # [id number] [facility] Unit Status released [facility]OO D [facility] Product [facility] [id number] [facility] BLO OD BANK LAB Blood Type Barcode 5100 [facility] Expiration Date S BLOOD BANK LAB Blood Bank BLOOD SPECIMEN / Unknown 02/19/2021 7:34 AM CDT Fredy Felipe MD LAB - BLOOD BANK ORD ERABLES [facility] [address] [place] [address] [phone] * (ABNORMAL) CBC W AUTO DIFFERENTIAL (02/23/2021 12:21 AM CDT) WBC 13.5(H) 3.5 - 10.5 10? 3 /uL 02/23/2021 1:02 AM [facility] RBC 4.32 4.30 - 5.70 10? 6 /uL 02/23/2021 1:02 AM [facility] Hemoglobin 12.0 12.0 - 17.6 g/dL 02/23/2021 1:02 AM [facility] Hematocrit 38.1 35.2 - 51.7 % 02/23/2021 1:02 AM [facility] MCV 88.2 80.7 - 98.3 fL 02/23/2021 1:02 AM [facility] MCH 27.8 26.7 - 34.0 pg 02/23/2021 1:02 AM [facility] MCHC 31.5 30.8 - 35.9 g/dL 02/23/2021 1:02 AM [facility] Platelet Count 403(H) 150 - 400 10? 3 /uL 02/23/2021 1:02 AM [facility] RDW-SD 45.1 36.0 - 50.0 fL 02/23/2021 1:02 AM [facility] RDW-CV 14.0 11.2 - 14.8 % 02/23/2021 1:02 AM [facility] MPV 9.2(L) 9.4 - 12.9 fL 02/23/2021 1:02 AM [facility] nRBC Absolute 0.00 0 10? 3 /uL 02/23/2021 1:02 AM [facility] nRBC Auto 0.0 0 /100 WBC 02/23/2021 1:02 AM [facility] Neutrophils % 74.4(H) 35.0 - 70.0 % 02/23/2021 1:02 AM [facility] Lymphocytes % 10.5(L) 20.0 - 43.0 % 02/23/2021 1:02 AM [facility] Monocytes % 9.6 5.0 - 13.0 % 02/23/2021 1:02 AM [facility] Eosinophils % 4.0 0.0 - 6.0 % 02/23/2021 1:02 AM [facility] Basophil % 0.2 0.0 - 2.0 % 02/23/2021 1:02 AM [facility] Neutrophils Absolute 10.0(H) 1.6 - 7.0 10? 3 /uL 02/23/2021 1:02 AM [facility] Lymphocyte Absolute 1.4 1.1 - 3.9 10? 3 /uL 02/23/2021 1:02 AM [facility] Monocytes Absolute 1.30(H) 0.26 - 1.07 10? 3 /uL 02/23/2021 1:02 AM [facility] Eosinophils Absolute 0.54(H) 0.00 - 0.47 10? 3 /uL 02/23/2021 1:02 AM [facility] Basophils Absolute 0.03 0.00 - 0.08 10? 3 /uL 02/23/2021 1:02 AM [facility] Immature Granulocytes % 1.3(H) 0.0 - 1.0 % 02/23/2021 1:02 AM [facility] Immature Granulocytes Absolute 0.18 02/23/2021 1:02 AM [facility] Blood BLOOD SPECIMEN / Unknown Venipuncture / Unknown 02/23/2021 12:21 AM CDT 02/23/2021 12:57 AM T Fredy Felipe MD LAB - HEMATOLOGY ORD ERABLES [facility] [address] [place] [address], [facility] [phone] * (ABNORMAL) BASIC METABOLIC PANEL (CALCIUM TOTAL) (02/23/2021 12:21 AM T) BUN 10 7 - 26 mg/dL 02/23/2021 1:22 AM [facility] Creatinine 0.84 0.71 - 1.16 mg/dL 02/23/2021 1:22 AM [facility] Sodium 139 136 - 145 mmol/L 02/23/2021 1:22 AM [facility] Potassium 4.2 3.5 - 4.5 mmol/L 02/23/2021 1:22 AM [facility] Chloride 103 98 - 107 mmol/L 02/23/2021 1:22 AM [facility] CO2 30(H) 22 - 29 mmol/L 02/23/2021 1:22 AM [facility] Glucose 145(H) 70 - 115 mg/dL 02/23/2021 1:22 AM [facility] Calcium 8.4 8.4 - 10.2 mg/dL 02/23/2021 1:22 AM [facility] Anion Gap 10 8 - 18 02/23/2021 1:22 AM [facility] BUN/Creatinine Ratio 12 7 - 23 02/23/2021 1:22 AM [facility] Osmolality Calculated 290 270 - 300 mOsm/kg 02/23/2021 1:22 AM [facility] eGFR by CKD-EPI >90 >=90 mL/min/1.7 3 m2 02/23/2021 1:22 AM [facility] Blood BLOOD SPECIMEN / Unknown Venipuncture / Unknown 02/23/2021 12:21 AM CDT 02/23/2021 12:57 AM T Fredy Felipe MD LAB - CHEMISTRY JOSE ENRIQUE Pena Organization Address City/State/ZIP Co de Phone Number [facility] [address] [place] [address], [facility] [phone] * (ABNORMAL) BLOOD GASES ART + COOX PANEL (02/23/2021 12:21 AM T) pH Arterial 7.43 7.35 - 7.45 pH 02/23/2021 1:02 AM [facility] pO2 Arterial 110(H) 80 - 100 mmHg 02/23/2021 1:02 AM [facility] pCO2 Arterial 44 35 - 45 mmHg 1:02 AM [facility] HCO3 Arterial 29 20 - 30 mmol/l 02/23/2021 1:02 AM [facility] BE Arterial 4.3(H) -2.0 - 2.0 mmol/L 02/23/2021 1:02 AM [facility] Oxyhemoglobin Arterial 97.1 % 02/23/2021 1:02 AM [facility] Dexoyhemoglobin (HHB) % 0.6 % 02/23/2021 1:02 AM [facility] Methemoglobin 0.8 0.0 - 2.0 % 02/23/2021 1:02 AM [facility] Carboxyhemoglobin 1.5 0.0 - 2.0 % 2020 1:02 AM [facility] O2 Content Arterial 17.5 Interpret within clinical context mg/dL 02/23/2021 1:02 AM [facility] Hemoglobin by COOX 12.7 12.0 - 17.6 g/dL 02/23/2021 1:02 AM [facility] O2 Saturation Arterial 99 90 - 100 % 02/23/2021 1:02 AM [facility] FI O2 Arterial 55.0 % 02/23/2021 1:[address] [facility] Blood, arterial ARTERIAL BLOOD SPECIMEN / Unknown Arterial Puncture / Unknown 02/23/2021 12:21 AM CDT 02/23/2021 12:[address] [facility] - 02/23/2021 1:02 AM CDT Carboxyhemoglobin Normal Concentration: Non-smokers: 0-2%; Smokers: 0-9%; Toxic: >20% Fredy Felipe MD LAB - BLOOD GASES OR DERABLES Performing Organization Address [facility] Co de Phone Number [facility] [address] [place] [address], [facility] [phone] * PT-INR [facility] (02/23/2021 12:21 AM CDT) PT 14.4 12.1 - 14.8 Seconds 02/23/2021 1:[address] [facility] INR 1.2 See Comment 02/23/2021 1:[address] [facility] Comment:The suggested therap eutic range for standard coumadin (warfarin) therapy is an INR of 2.0-3.0. For high-risk patients (Mechanical Mitral Valve Prosthesis, etc.), the suggested prophylactic therapeutic range is an INR of 2.5-3.5. Blood BLOOD SPECIMEN / Unknown Venipuncture / Unknown 02/23/2021 12:21 AM CDT 02/23/2021 12:59 AM CDT Fredy Felipe MD LAB - COAGULATION OR DERABLES [facility] [address] [place] [address], [facility] [phone] * PHOSPHORUS BLOOD (02/23/2021 12:21 AM CDT) Phosphorus 3.9 2.8 - 5.1 mg/dL 02/23/2021 1:[address] [facility] Blood BLOOD SPECIMEN / Unknown Venipuncture / Unknown 02/23/2021 12:21 AM CDT 02/23/2021 12:57 AM CDT Fredy Felipe MD LAB - CHEMISTRY JOSE ENRIQUE VELA [facility] [address] [place] [address], [place] [phone] * MAGNESIUM BLOOD (02/23/2021 12:21 AM CDT) Magnesium 2.1 1.6 - 2.6 mg/dL 02/23/2021 1:22 AM CDT [facility] Blood BLOOD SPECIMEN / Unknown Venipuncture / Unknown 02/23/2021 12:21 AM CDT 02/23/2021 12:57 AM CDT Fredy Felipe MD LAB - CHEMISTRY JOSE ENRIQUE VELA Performing Organization Address [facility]/ZIP Co de Phone Number [address] [address], [place] [phone] * (ABNORMAL) CALCIUM IONIZED WHOLE BLOOD (02/23/2021 12:21 AM CDT) Calcium Ionized 1.12 mmol/L 02/23/2021 1:05 AM CDT [facility] pH 7.44 7.35 - 7.45 pH 02/23/2021 1:[address] [facility] Ionized Calcium pH Adjusted 1.14(L) 1.19 - 1.34 mmol/L 02/23/2021 1:05 AM CDT [facility] Blood BLOOD SPECIMEN / Unknown Venipuncture / Unknown 02/23/2021 12:21 AM CDT 02/23/2021 12:55 AM CDT Fredy Felipe MD LAB - CHEMISTRY JOSE ENRIQUE VELA [address] [address], [place] [phone] * CREATININE URINE RANDOM (02/22/2021 5:45 AM CDT) Creatinine Urine 212 Not Established mg/dL 02/22/2021 6:[address] [facility] Urine URINE SPECIMEN OBTAINED BY CLEAN CATCH PROCEDURE / Unknown Collection / Unknown 02/22/2021 5:45 AM CDT 02/22/2021 6:13 AM CDT Dino Hudson PA-C LAB - URINE CHEMI STRY ORDERABLES Performing Organization Address City/[facility]/ZIP Co de Phone Number [address] [address], [place] [phone] * UREA NITROGEN URINE RANDOM (02/22/2021 5:45 AM CDT) Urea Nitrogen Random Urine 1,198 Not Established mg/dL 02/22/2021 6:[address] [facility] Urine URINE SPECIMEN OBTAINED BY CLEAN CATCH PROCEDURE / Unknown Collection / Unknown 02/22/2021 5:45 AM CDT 02/22/2021 6:13 AM CDT Dino MORIN-C LAB - URINE CHEMI STRY ORDERABLES Performing Organization Address [facility] Co de Phone Number [address] [address], [place] [phone] * SODIUM URINE RANDOM (02/22/2021 5:45 AM CDT) Sodium Urine 56 Not Established mmol/L 02/22/2021 6:[address] [facility] Urine URINE SPECIMEN OBTAINED BY CLEAN CATCH PROCEDURE / Unknown Collection / Unknown 02/22/2021 5:45 AM CDT 02/22/2021 6:13 AM CDT Dino MORIN-C LAB - URINE CHEMI STRY ORDERABLES Performing Organization Address City/[facility]/ZIP Co de Phone Number [address] [address], [place] [phone] * (ABNORMAL) URINALYSIS W/MICROSCOPIC NO CULTURE (02/22/2021 5:44 AM [facility]) Color UA Janis(A) Straw, Yellow 02/22/2021 6:08 AM [facility] Clarity UA Slt Cloudy(A) Clear 02/22/2021 6:08 AM [facility] Specific [place] UA 1.024 1.005 - 1.030 02/22/2021 6:08 AM [facility] pH UA 5.0 5.0 - 8.0 pH 02/22/2021 6:08 AM [facility] Protein UA 1+(A) Negative 02/22/2021 6:08 AM [facility] Glucose UA Negative Negative 02/22/2021 6:08 AM [facility] Ketone UA Negative Negative 02/22/2021 6:08 AM [facility] Bilirubin UA Negative Negative 02/22/2021 6:08 AM [facility] Blood UA 2+(A) Negative 02/22/2021 6:08 AM [facility] Nitrite UA Negative Negative 02/22/2021 6:08 AM [facility] Leukocyte Esterase Negative Negative 02/22/2021 6:08 AM [facility] Urobilinogen UA Negative Negative mg/dL 02/22/2021 6:08 AM [facility] RBC UA 51-100(A) None Seen, 0-2, 3-5 /HPF 02/22/2021 6:08 AM [facility] WBC UA 6-10(A) None Seen, 0-5 /HPF 02/22/2021 6:08 AM [facility] Bacteria UA 1+(A) None /HPF 02/22/2021 6:08 AM [facility] Squamous Epithelial Cells UA None Seen None Seen, 0-2, 3-5 /HPF 02/22/2021 6:08 AM [facility] Mucus UA 1+ /LPF 02/22/2021 6:08 AM [facility] Urine URINE SPECIMEN OBTAINED VIA [employer] [facility] [employer] / Unknown Collection / Unknown 02/22/2021 5:44 AM CDT 02/22/2021 5:[address] [facility] - 02/22/2021 6:08 AM CDT Dino Hudson PA-C LAB - URINALYSIS ORDERABLES [facility] [address] [place] [address], [facility] [phone] * XR CHEST 1VW PORTABLE (02/22/2021 4:54 [...] ART + COOX PANEL (02/22/2021 3:17 AM [facility]) pH Arterial 7.41 7.35 - 7.45 pH 02/22/2021 3:23 AM [facility] pO2 Arterial 94 80 - 100 mmHg 02/22/2021 3:23 AM [facility] pCO2 Arterial 46(H) 35 - 45 mmHg 3:23 AM [facility] HCO3 Arterial 29 20 - 30 mmol/l 02/22/2021 3:23 AM [facility] BE Arterial 3.8(H) -2.0 - 2.0 mmol/L 02/22/2021 3:23 AM [facility] Oxyhemoglobin Arterial 96.7 % 02/22/2021 3:23 AM [facility] Dexoyhemoglobin (HHB) % 0.8 % 02/22/2021 3:23 AM [facility] Methemoglobin <0.8 0.0 - 2.0 % 02/22/2021 3:23 AM [facility] Carboxyhemoglobin 2.2(H) 0.0 - 2.0 % 2020 3:23 AM [facility] O2 Content Arterial 19.2 Interpret within clinical context mg/dL 02/22/2021 3:23 AM [facility] Hemoglobin by COOX 14.1 12.0 - 17.6 g/dL 02/22/2021 3:23 AM [facility] O2 Saturation Arterial 99 90 - 100 % 02/22/2021 3:23 AM [facility] FI O2 Arterial 55.0 % 02/22/2021 3:23 AM [facility] Blood, arterial ARTERIAL BLOOD SPECIMEN / Unknown Arterial Puncture / Unknown 02/22/2021 3:17 AM CDT 02/22/2021 3:[address] [facility] - 02/22/2021 3:23 AM CDT Carboxyhemoglobin Normal Concentration: Non-smokers: 0-2%; Smokers: 0-9%; Toxic: >20% Dino Hudson PA-C LAB - BLOOD GASES ORDERABLES [facility] [address] [place] [address], [facility] [phone] * (ABNORMAL) CBC W AUTO DIFFERENTIAL (02/21/2021 11:12 PM CDT) WBC 14.5(H) 3.5 - 10.5 10? 3 /uL 02/21/2021 11:21 PM [facility] RBC 4.88 4.30 - 5.70 10? 6 /uL 02/21/2021 11:21 PM [facility] Hemoglobin 13.7 12.0 - 17.6 g/dL 02/21/2021 11:21 PM [facility] Hematocrit 41.8 35.2 - 51.7 % 02/21/2021 11:21 PM [facility] MCV 85.7 80.7 - 98.3 fL 02/21/2021 11:21 PM [facility] MCH 28.1 26.7 - 34.0 pg 02/21/2021 11:21 PM [facility] MCHC 32.8 30.8 - 35.9 g/dL 02/21/2021 11:21 PM [facility] Platelet Count 374 150 - 400 10? 3 /uL 02/21/2021 11:21 PM [facility] RDW-SD 42.4 36.0 - 50.0 fL 02/21/2021 11:21 PM [facility] RDW-CV 13.7 11.2 - 14.8 % 02/21/2021 11:21 PM [facility] MPV 9.1(L) 9.4 - 12.9 fL 02/21/2021 11:21 PM [facility] nRBC Absolute 0.00 0 10? 3 /uL 02/21/2021 11:21 PM [facility] nRBC Auto 0.0 0 /100 WBC 02/21/2021 11:21 PM [facility] Neutrophils % 82.8(H) 35.0 - 70.0 % 02/21/2021 11:21 PM [facility] Lymphocytes % 6.9(L) 20.0 - 43.0 % 02/21/2021 11:21 PM [facility] Monocytes % 7.6 5.0 - 13.0 % 02/21/2021 11:21 PM [facility] Eosinophils % 1.0 0.0 - 6.0 % 02/21/2021 11:21 PM [facility] Basophil % 0.3 0.0 - 2.0 % 02/21/2021 11:21 PM [facility] Neutrophils Absolute 12.0(H) 1.6 - 7.0 10? 3 /uL 02/21/2021 11:21 PM [facility] Lymphocyte Absolute 1.0(L) 1.1 - 3.9 10? 3 /uL 02/21/2021 11:21 PM [facility] Monocytes Absolute 1.10(H) 0.26 - 1.07 10? 3 /uL 02/21/2021 11:21 PM [facility] Eosinophils Absolute 0.14 0.00 - 0.47 10? 3 /uL 02/21/2021 11:21 PM [facility] Basophils Absolute 0.05 0.00 - 0.08 10? 3 /uL 02/21/2021 11:21 PM [facility] Immature Granulocytes % 1.4(H) 0.0 - 1.0 % 02/21/2021 11:21 PM [facility] Immature Granulocytes Absolute 0.21 02/21/2021 11:21 PM [facility] Blood BLOOD SPECIMEN / Unknown Venipuncture / Unknown 02/21/2021 11:12 PM CDT 02/21/2021 11:17 PM CDT Fredy Felipe MD LAB - HEMATOLOGY ORD ERABLES [facility] [address] [place] [address], [facility] [phone] * (ABNORMAL) BASIC METABOLIC PANEL (CALCIUM TOTAL) (02/21/2021 11:12 PM CDT) BUN 15 7 - 26 mg/dL 02/21/2021 11:42 PM [facility] Creatinine 1.13 0.71 - 1.16 mg/dL 02/21/2021 11:42 PM [facility] Sodium 141 136 - 145 mmol/L 02/21/2021 11:42 PM [facility] Potassium 4.3 3.5 - 4.5 mmol/L 02/21/2021 11:42 PM [facility] Chloride 105 98 - 107 mmol/L 02/21/2021 11:42 PM [facility] CO2 22 22 - 29 mmol/L 02/21/2021 11:42 PM [facility] Glucose 126(H) 70 - 115 mg/dL 02/21/2021 11:42 PM [facility] Calcium 8.5 8.4 - 10.2 mg/dL 02/21/2021 11:42 PM [facility] Anion Gap 18 8 - 18 02/21/2021 11:42 PM [facility] BUN/Creatinine Ratio 13 7 - 23 02/21/2021 11:42 PM [facility] Osmolality Calculated 294 270 - 300 mOsm/kg 02/21/2021 11:42 PM [facility] eGFR by CKD-EPI 84(L) >=90 mL/min/1.7 3 m2 02/21/2021 11:42 PM [facility] Blood BLOOD SPECIMEN / Unknown Venipuncture / Unknown 02/21/2021 11:12 PM CDT 02/21/2021 11:16 PM CDT Fredy Felipe MD LAB - CHEMISTRY JOSE ENRIQUE VELA [facility] Organization Address City/State/ZIP Co de Phone Number [facility] [address] [place] [address], [facility] [phone] * (ABNORMAL) BLOOD GASES ART + COOX PANEL (02/21/2021 11:12 PM CDT) pH Arterial 7.60(H) 7.35 - 7.45 pH 02/21/2021 11:20 PM [facility] pO2 Arterial 185(H) 80 - 100 mmHg 02/21/2021 11:20 PM [facility] pCO2 Arterial 26(L) 35 - 45 mmHg 11:20 PM [facility] HCO3 Arterial 26 20 - 30 mmol/l 02/21/2021 11:20 PM [facility] BE Arterial 5.1(H) -2.0 - 2.0 mmol/L 02/21/2021 11:20 PM [facility] Oxyhemoglobin Arterial 97.5 % 02/21/2021 11:20 PM [facility] Dexoyhemoglobin (HHB) % 0.3 % 02/21/2021 11:20 PM [facility] Methemoglobin 0.9 0.0 - 2.0 % 02/21/2021 11:20 PM [facility] Carboxyhemoglobin 1.3 0.0 - 2.0 % 2020 11:20 PM [facility] O2 Content Arterial 20.2 Interpret within clinical context mg/dL 02/21/2021 11:20 PM [facility] Hemoglobin by COOX 14.5 12.0 - 17.6 g/dL 02/21/2021 11:20 PM [facility] O2 Saturation Arterial 100 90 - 100 % 02/21/2021 11:20 PM [facility] FI O2 Arterial 60.0 % 02/21/2021 11:20 PM [facility] Blood, arterial ARTERIAL BLOOD SPECIMEN / Unknown Arterial Puncture / Unknown 02/21/2021 11:12 PM CDT 02/21/2021 11:[address] [facility] - 02/21/2021 11:20 PM CDT Carboxyhemoglobin Normal Concentration: Non-smokers: 0-2%; Smokers: 0-9%; Toxic: >20% Fredy Felipe MD LAB - BLOOD GASES OR DERABLES Performing Organization Address [facility] Co de Phone Number [address] [address], [facility] [phone] * (ABNORMAL) PT-INR [facility] (02/21/2021 11:12 PM CDT) PT 15.2(H) 12.1 - 14.8 Seconds 02/21/2021 11:[address] [facility] INR 1.2 See Comment 02/21/2021 11:[address] [facility] Comment:The suggested therap eutic range for standard coumadin (warfarin) therapy is an INR of 2.0-3.0. For high-risk patients (Mechanical Mitral Valve Prosthesis, etc.), the suggested prophylactic therapeutic range is an INR of 2.5-3.5. Blood BLOOD SPECIMEN / Unknown Venipuncture / Unknown 02/21/2021 11:12 PM CDT 02/21/2021 11:18 PM CDT Fredy Felipe MD LAB - COAGULATION OR DERABLES Performing Organization Address City/[facility] Co de Phone Number [address] [address], [facility] [phone] * PHOSPHORUS BLOOD (02/21/2021 11:12 PM CDT) Phosphorus 3.5 2.8 - 5.1 mg/dL 02/21/2021 11:[address] [facility] Blood BLOOD SPECIMEN / Unknown Venipuncture / Unknown 02/21/2021 11:12 PM CDT 02/21/2021 11:16 PM CDT Fredy Felipe MD LAB - CHEMISTRY [facility] [address] [address], [place] [phone] * MAGNESIUM BLOOD (02/21/2021 11:12 PM CDT) Magnesium 1.8 1.6 - 2.6 mg/dL 02/21/2021 11:42 PM CDT [facility] Blood BLOOD SPECIMEN / Unknown Venipuncture / Unknown 02/21/2021 11:12 PM CDT 02/21/2021 11:16 PM CDT Fredy Felipe MD LAB - CHEMISTRY [facility] [address] [address], [place] [phone] * (ABNORMAL) CALCIUM IONIZED WHOLE BLOOD (02/21/2021 11:12 PM CDT) Calcium Ionized 1.10 mmol/L 02/21/2021 11:21 PM CDT [facility] pH 7.62(H) 7.35 - 7.45 pH 02/21/2021 11:[address] [facility] Ionized Calcium pH Adjusted 1.20 1.19 - 1.34 mmol/L 02/21/2021 11:[address] [facility] Blood BLOOD SPECIMEN / Unknown Venipuncture / Unknown 02/21/2021 11:12 PM CDT 02/21/2021 11:18 PM CDT Fredy Felipe MD LAB - CHEMISTRY [facility] [address] [address], [place] [phone] * (ABNORMAL) TRIGLYCERIDES BLOOD (02/21/2021 11:12 PM CDT) Triglycerides 236(H) <150 mg/dL 02/21/2021 11:[address] [facility] Comment: ATP III Classification of [...] Address City/State/ZIP Co de Phone Number [facility] [address] [place] [address], [facility] [phone] * XR FOREARM RIGHT 2VW (02/21/2021 9:01 AM CDT) Anatomical Region Laterality Modality Upper Extremity Radiographic Sera ging 02/21/2021 9:07 AM CDT Impressions 02/21/2021 10:41 AM CDT IMPRESSION: No acute radial or ulnar fracture identified. Dictated by Rico Sawant D.O. (Pet Caregiver) I, Dr. CHOCO JIN MD have personally [...] fracture identified. Dictated by Rico Sawant D.O. (Pet Caregiver) I, Dr. CHOCO JIN MD have personally [...] are normal. Dictated by Rico Sawant DO (manager residential). Dr. AFRICA Yao M.D. have personally reviewed [...] are normal. Dictated by Rico Sawant DO (manager residential). I, Dr. AFRICA HENRIQUEZ M.D. have personally reviewed and interpreted this examination/study. This report was electronically signed by AFRICA HENRIQUEZ M.D. on 02/21/2021 11:05 AM . Fredy Felipe MD DIAGNOSTIC IMAGING O RDERABLES * (ABNORMAL) CBC W AUTO DIFFERENTIAL (02/20/2021 11:26 PM T) WBC 14.6(H) 3.5 - 10.5 10? 3 /uL 02/20/2021 11:36 PM [facility] RBC 5.46 4.30 - 5.70 10? 6 /uL 02/20/2021 11:36 PM [facility] Hemoglobin 15.0 12.0 - 17.6 g/dL 02/20/2021 11:36 PM [facility] Hematocrit 46.7 35.2 - 51.7 % 02/20/2021 11:36 PM [facility] MCV 85.5 80.7 - 98.3 fL 02/20/2021 11:36 PM [facility] MCH 27.5 26.7 - 34.0 pg 02/20/2021 11:36 PM [facility] MCHC 32.1 30.8 - 35.9 g/dL 02/20/2021 11:36 PM [facility] Platelet Count 392 150 - 400 10? 3 /uL 02/20/2021 11:36 PM [facility] RDW-SD 42.8 36.0 - 50.0 fL 02/20/2021 11:36 PM [facility] RDW-CV 13.9 11.2 - 14.8 % 02/20/2021 11:36 PM [facility] MPV 9.0(L) 9.4 - 12.9 fL 02/20/2021 11:36 PM [facility] nRBC Absolute 0.00 0 10? 3 /uL 02/20/2021 11:36 PM [facility] nRBC Auto 0.0 0 /100 WBC 02/20/2021 11:36 PM [facility] Neutrophils % 82.1(H) 35.0 - 70.0 % 02/20/2021 11:36 PM [facility] Lymphocytes % 5.4(L) 20.0 - 43.0 % 02/20/2021 11:36 PM [facility] Monocytes % 9.4 5.0 - 13.0 % 02/20/2021 11:36 PM [facility] Eosinophils % 2.0 0.0 - 6.0 % 02/20/2021 11:36 PM [facility] Basophil % 0.4 0.0 - 2.0 % 02/20/2021 11:36 PM [facility] Neutrophils Absolute 12.0(H) 1.6 - 7.0 10? 3 /uL 02/20/2021 11:36 PM [facility] Lymphocyte Absolute 0.8(L) 1.1 - 3.9 10? 3 /uL 02/20/2021 11:36 PM [facility] Monocytes Absolute 1.37(H) 0.26 - 1.07 10? 3 /uL 02/20/2021 11:36 PM [facility] Eosinophils Absolute 0.29 0.00 - 0.47 10? 3 /uL 02/20/2021 11:36 PM [facility] Basophils Absolute 0.06 0.00 - 0.08 10? 3 /uL 02/20/2021 11:36 PM [facility] Immature Granulocytes % 0.7 0.0 - 1.0 % 02/20/2021 11:36 PM [facility] Immature Granulocytes Absolute 0.10 02/20/2021 11:36 PM [facility] Blood BLOOD SPECIMEN / Unknown Venipuncture / Unknown 02/20/2021 11:26 PM CDT 02/20/2021 11:31 PM CDT Fredy Felipe MD LAB - HEMATOLOGY ORD ERABLES [facility] [address] [place] [address], [facility] [phone] * BASIC METABOLIC PANEL (CALCIUM TOTAL) (02/20/2021 11:26 PM CDT) BUN 12 7 - 26 mg/dL 02/20/2021 11:54 PM [facility] Creatinine 0.75 0.71 - 1.16 mg/dL 02/20/2021 11:54 PM [facility] Sodium 142 136 - 145 mmol/L 02/20/2021 11:54 PM [facility] Potassium 4.0 3.5 - 4.5 mmol/L 02/20/2021 11:54 PM [facility] Chloride 105 98 - 107 mmol/L 02/20/2021 11:54 PM [facility] CO2 26 22 - 29 mmol/L 02/20/2021 11:54 PM [facility] Glucose 106 70 - 115 mg/dL 02/20/2021 11:54 PM [facility] Calcium 8.8 8.4 - 10.2 mg/dL 02/20/2021 11:54 PM [facility] Anion Gap 15 8 - 18 02/20/2021 11:54 PM [facility] BUN/Creatinine Ratio 16 7 - 23 02/20/2021 11:54 PM [facility] Osmolality Calculated 294 270 - 300 mOsm/kg 02/20/2021 11:54 PM [facility] eGFR by CKD-EPI >90 >=90 mL/min/1.7 3 m2 02/20/2021 11:54 PM [facility] Blood BLOOD SPECIMEN / Unknown Venipuncture / Unknown 02/20/2021 11:26 PM CDT 02/20/2021 11:30 PM CDT Fredy Felipe MD LAB - CHEMISTRY JOSE ENRIQUE Pena Organization Address City/State/ZIP Co de Phone Number [facility] [address] [place] [address], [facility] [phone] * (ABNORMAL) BLOOD GASES ART + COOX PANEL (02/20/2021 11:26 PM CDT) pH Arterial 7.41 7.35 - 7.45 pH 02/20/2021 11:32 PM [facility] pO2 Arterial 131(H) 80 - 100 mmHg 02/20/2021 11:32 PM [facility] pCO2 Arterial 40 35 - 45 mmHg 11:32 PM [facility] HCO3 Arterial 25 20 - 30 mmol/l 02/20/2021 11:32 PM [facility] BE Arterial 0.7 -2.0 - 2.0 mmol/L 02/20/2021 11:32 PM [facility] Oxyhemoglobin Arterial 96.8 % 02/20/2021 11:32 PM [facility] Dexoyhemoglobin (HHB) % 0.0 % 02/20/2021 11:32 PM [facility] Methemoglobin <0.8 0.0 - 2.0 % 02/20/2021 11:32 PM [facility] Carboxyhemoglobin 2.7(H) 0.0 - 2.0 % 2020 11:32 PM [facility] O2 Content Arterial 21.3 Interpret within clinical context mg/dL 02/20/2021 11:32 PM [facility] Hemoglobin by COOX 15.5 12.0 - 17.6 g/dL 02/20/2021 11:32 PM [facility] O2 Saturation Arterial 100 90 - 100 % 02/20/2021 11:32 PM [facility] FI O2 Arterial 100.0 % 02/20/2021 11:32 PM [facility] Blood, arterial ARTERIAL BLOOD SPECIMEN / Unknown Arterial Puncture / Unknown 02/20/2021 11:26 PM CDT 02/20/2021 11:30 PM CDT Narrative [facility] - 02/20/2021 11:32 PM CDT Carboxyhemoglobin Normal Concentration: Non-smokers: 0-2%; Smokers: 0-9%; Toxic: >20% Fredy Felipe MD LAB - BLOOD GASES OR DERABLES Performing Organization Address [facility] Co de Phone Number [facility] [address] [place] [address], [facility] [phone] * PT-INR [facility] (02/20/2021 11:26 PM CDT) PT 14.8 12.1 - 14.8 Seconds 02/20/2021 11:[address] [facility] INR 1.2 See Comment 02/20/2021 11:[address] [facility] Comment:The suggested therap eutic range for standard coumadin (warfarin) therapy is an INR of 2.0-3.0. For high-risk patients (Mechanical Mitral Valve Prosthesis, etc.), the suggested prophylactic therapeutic range is an INR of 2.5-3.5. Blood BLOOD SPECIMEN / Unknown Venipuncture / Unknown 02/20/2021 11:26 PM CDT 02/20/2021 11:30 PM CDT Fredy Felipe MD LAB - COAGULATION OR DERABLES Performing Organization Address [facility] Co de Phone Number [facility] [address] [place] [phone], [facility] [phone] * PHOSPHORUS BLOOD (02/20/2021 11:26 PM CDT) Phosphorus 4.6 2.8 - 5.1 mg/dL 02/20/2021 11:[address] [facility] Blood BLOOD SPECIMEN / Unknown Venipuncture / Unknown 02/20/2021 11:26 PM CDT 02/20/2021 11:30 PM CDT Fredy Felipe MD LAB - CHEMISTRY JOSE ENRIQUE VELA [facility] [address] [place] [address], [place] [phone] * MAGNESIUM BLOOD (02/20/2021 11:26 PM CDT) Magnesium 2.0 1.6 - 2.6 mg/dL 02/20/2021 11:[address] [facility] Blood BLOOD SPECIMEN / Unknown Venipuncture / Unknown 02/20/2021 11:26 PM CDT 02/20/2021 11:30 PM CDT Fredy Felipe MD LAB - CHEMISTRY JOSE ENRIQUE VELA [address] [address], [place] [phone] * (ABNORMAL) CALCIUM IONIZED WHOLE BLOOD (02/20/2021 11:26 PM CDT) Calcium Ionized 1.14 mmol/L 02/20/2021 11:[address] [facility] pH 7.41 7.35 - 7.45 pH 02/20/2021 11:[address] [facility] Ionized Calcium pH Adjusted 1.14(L) 1.19 - 1.34 mmol/L 02/20/2021 11:[address] [facility] Blood BLOOD SPECIMEN / Unknown Venipuncture / Unknown 02/20/2021 11:26 PM CDT 02/20/2021 11:30 PM CDT Fredy Felipe MD LAB - CHEMISTRY JOSE ENRIQUE VELA [address] [address], [place] [phone] * XR CHEST 1VW PORTABLE (02/20/2021 1:56 PM CDT) Anatomical Region Laterality Modality Chest Radiographic Sera ging 02/20/2021 3:53 PM CDT Impressions 02/20/2021 4:27 PM CDT FINDINGS/IMPRESSION: Lines and tubes: *Endotracheal tube terminates in mid thoracic trachea. *There is an NG/OG coursing below the diaphragm, terminus outside the [id number]. *There is a left subclavian approach central [...] is stable. Dictated by Rico Sawant DO (manager residential). I, Dr. AFRICA HENRIQUEZ M.D. have personally [...] coursing below the diaphragm, terminus outside the [id number]-[id number]. *There is a left subclavian approach central [...] is stable. Dictated by Rico Sawant DO (manager residential). I, Dr. AFRICA HENRIQUEZ M.D. have personally [...] below the diaphragm, the segments of the [id number]. *There is a left subclavian approach central [...] is stable. Dictated by Phan Brothers MD (manager residential). Dr. SUNITA Yao have personally reviewed and [...] below the diaphragm, the segments of the [id number]. *There is a left subclavian approach central [...] is stable. Dictated by Phan Brothers MD (manager residential). I, Dr. SUNITA BAILEY have personally reviewed and interpreted this examination/study. This report was electronically signed by SUNITA BAILEY on 13:06 PM . Fredy Felipe MD DIAGNOSTIC IMAGING O RDERABLES * BLOOD GASES ART + COOX PANEL (02/20/2021 3:07 AM [facility]) pH Arterial 7.41 7.35 - 7.45 pH 02/20/2021 3:12 AM [facility] pO2 Arterial 88 80 - 100 mmHg 02/20/2021 3:12 AM [facility] pCO2 Arterial 41 35 - 45 mmHg 3:12 AM [facility] HCO3 Arterial 26 20 - 30 mmol/l 02/20/2021 3:12 AM [facility] BE Arterial 1.2 -2.0 - 2.0 mmol/L 02/20/2021 3:12 AM [facility] Oxyhemoglobin Arterial 96.0 % 02/20/2021 3:12 AM [facility] Dexoyhemoglobin (HHB) % 1.4 % 02/20/2021 3:12 AM [facility] Methemoglobin 0.9 0.0 - 2.0 % 02/20/2021 3:[address] [facility] Carboxyhemoglobin 1.7 0.0 - 2.0 % 2020 3:[address] [facility] O2 Content Arterial 18.7 Interpret within clinical context mg/dL 02/20/2021 3:12 AM [facility] Hemoglobin by COOX 13.8 12.0 - 17.6 g/dL 02/20/2021 3:12 AM [facility] O2 Saturation Arterial 99 90 - 100 % 02/20/2021 3:12 AM [facility] FI O2 Arterial 60.0 % 02/20/2021 3:[address] [facility] Blood, arterial ARTERIAL BLOOD SPECIMEN / Unknown Arterial Puncture / Unknown 02/20/2021 3:07 AM CDT 02/20/2021 3:10 AM CDT [facility] - 02/20/2021 3:12 AM CDT Carboxyhemoglobin Normal Concentration: Non-smokers: 0-2%; Smokers: 0-9%; Toxic: >20% Delilah [employer] DIRECT[employer] LAB - BLOOD GASES ORDERABLES [facility] [address] [place] [phone], [facility] [phone] * (ABNORMAL) CBC W AUTO DIFFERENTIAL (02/19/2021 11:36 PM CDT) WBC 13.2(H) 3.5 - 10.5 10? 3 /uL 02/19/2021 11:[address] [facility] RBC 4.92 4.30 - 5.70 10? 6 /uL 02/19/2021 11:[address] [facility] Hemoglobin 13.8 12.0 - 17.6 g/dL 02/19/2021 11:45 PM [facility] Hematocrit 42.3 35.2 - 51.7 % 02/19/2021 11:45 PM [facility] MCV 86.0 80.7 - 98.3 fL 02/19/2021 11:[address] [facility] MCH 28.0 26.7 - 34.0 pg 02/19/2021 11:45 PM [facility] MCHC 32.6 30.8 - 35.9 g/dL 02/19/2021 11:45 PM [facility] Platelet Count 371 150 - 400 10? 3 /uL 02/19/2021 11:45 PM [facility] RDW-SD 43.7 36.0 - 50.0 fL 02/19/2021 11:45 PM [facility] RDW-CV 13.8 11.2 - 14.8 % 02/19/2021 11:45 PM [facility] MPV 8.8(L) 9.4 - 12.9 fL 02/19/2021 11:45 PM [facility] nRBC Absolute 0.00 0 10? 3 /uL 02/19/2021 11:45 PM [facility] nRBC Auto 0.0 0 /100 WBC 02/19/2021 11:45 PM [facility] Neutrophils % 78.5(H) 35.0 - 70.0 % 02/19/2021 11:45 PM [facility] Lymphocytes % 8.3(L) 20.0 - 43.0 % 02/19/2021 11:45 PM [facility] Monocytes % 10.4 5.0 - 13.0 % 02/19/2021 11:45 PM [facility] Eosinophils % 1.6 0.0 - 6.0 % 02/19/2021 11:45 PM [facility] Basophil % 0.4 0.0 - 2.0 % 02/19/2021 11:45 PM [facility] Neutrophils Absolute 10.4(H) 1.6 - 7.0 10? 3 /uL 02/19/2021 11:45 PM [facility] Lymphocyte Absolute 1.1 1.1 - 3.9 10? 3 /uL 02/19/2021 11:45 PM [facility] Monocytes Absolute 1.37(H) 0.26 - 1.07 10? 3 /uL 02/19/2021 11:45 PM [facility] Eosinophils Absolute 0.21 0.00 - 0.47 10? 3 /uL 02/19/2021 11:45 PM [facility] Basophils Absolute 0.05 0.00 - 0.08 10? 3 /uL 02/19/2021 11:45 PM [facility] Immature Granulocytes % 0.8 0.0 - 1.0 % 02/19/2021 11:[address] [facility] Immature Granulocytes Absolute 0.11 02/19/2021 11:45 PM [facility] Blood BLOOD SPECIMEN / Unknown Venipuncture / Unknown 02/19/2021 11:36 PM CDT 02/19/2021 11:41 PM CDT Fredy Felipe MD LAB - HEMATOLOGY ORD ERABLES [facility] [address] [place] [phone], [facility] [phone] * BASIC METABOLIC PANEL (CALCIUM TOTAL) (02/19/2021 11:36 PM CDT) BUN 10 7 - 26 mg/dL 02/20/2021 12:08 AM [facility] Creatinine 0.72 0.71 - 1.16 mg/dL 02/20/2021 12:08 AM [facility] Sodium 140 136 - 145 mmol/L 02/20/2021 12:08 AM [facility] Potassium 4.3 3.5 - 4.5 mmol/L 02/20/2021 12:08 AM [facility] Chloride 105 98 - 107 mmol/L 02/20/2021 12:08 AM [facility] CO2 25 22 - 29 mmol/L 02/20/2021 12:08 AM [facility] Glucose 92 70 - 115 mg/dL 02/20/2021 12:08 AM [facility] Calcium 8.9 8.4 - 10.2 mg/dL 02/20/2021 12:08 AM [facility] Anion Gap 14 8 - 18 02/20/2021 12:08 AM [facility] BUN/Creatinine Ratio 14 7 - 23 02/20/2021 12:08 AM [facility] Osmolality Calculated 289 270 - 300 mOsm/kg 02/20/2021 12:08 AM [facility] eGFR by CKD-EPI >90 >=90 mL/min/1.7 3 m2 02/20/2021 12:08 AM [facility] Blood BLOOD SPECIMEN / Unknown Venipuncture / Unknown 02/19/2021 11:36 PM CDT 02/19/2021 11:41 PM CDT Fredy Felipe MD LAB - CHEMISTRY JOSE ENRIQUE VELA [facility] Organization Address City/State/ZIP Co de Phone Number [facility] [address] [place] [address], [facility] [phone] * BLOOD GASES ART + COOX PANEL (02/19/2021 11:36 PM CDT) pH Arterial 7.42 7.35 - 7.45 pH 02/19/2021 11:42 PM [facility] pO2 Arterial 93 80 - 100 mmHg 02/19/2021 11:42 PM [facility] pCO2 Arterial 41 35 - 45 mmHg 11:42 PM [facility] HCO3 Arterial 27 20 - 30 mmol/l 02/19/2021 11:42 PM [facility] BE Arterial 1.9 -2.0 - 2.0 mmol/L 02/19/2021 11:42 PM [facility] Oxyhemoglobin Arterial 96.2 % 02/19/2021 11:42 PM [facility] Dexoyhemoglobin (HHB) % 1.5 % 02/19/2021 11:42 PM [facility] Methemoglobin 1.0 0.0 - 2.0 % 02/19/2021 11:42 PM [facility] Carboxyhemoglobin 1.4 0.0 - 2.0 % 2020 11:42 PM [facility] O2 Content Arterial 19.5 Interpret within clinical context mg/dL 02/19/2021 11:42 PM [facility] Hemoglobin by COOX 14.4 12.0 - 17.6 g/dL 02/19/2021 11:42 PM [facility] O2 Saturation Arterial 99 90 - 100 % 02/19/2021 11:[address] [facility] FI O2 Arterial 50.0 % 02/19/2021 11:[address] [facility] Blood, arterial ARTERIAL BLOOD SPECIMEN / Unknown Arterial Puncture / Unknown 02/19/2021 11:36 PM CDT 02/19/2021 11:[address] [facility] - 02/19/2021 11:42 PM CDT Carboxyhemoglobin Normal Concentration: Non-smokers: 0-2%; Smokers: 0-9%; Toxic: >20% Fredy Felipe MD LAB - BLOOD GASES OR DERABLES Performing Organization Address City/[facility]/ZIP Co de Phone Number [address] [address], [facility] [phone] * PT-INR [facility] (02/19/2021 11:36 PM CDT) PT 14.1 12.1 - 14.8 Seconds 02/19/2021 11:[address] [facility] INR 1.1 See Comment 02/19/2021 11:[address] [facility] Comment:The suggested therap eutic range for standard coumadin (warfarin) therapy is an INR of 2.0-3.0. For high-risk patients (Mechanical Mitral Valve Prosthesis, etc.), the suggested prophylactic therapeutic range is an INR of 2.5-3.5. Blood BLOOD SPECIMEN / Unknown Venipuncture / Unknown 02/19/2021 11:36 PM CDT 02/19/2021 11:44 PM CDT Fredy Felipe MD LAB - COAGULATION OR DERABLES [address] [address], [facility] [phone] * PHOSPHORUS BLOOD (02/19/2021 11:36 PM CDT) Phosphorus 3.8 2.8 - 5.1 mg/dL 02/20/2021 12:[address] [facility] Blood BLOOD SPECIMEN / Unknown Venipuncture / Unknown 02/19/2021 11:36 PM CDT 02/19/2021 11:41 PM CDT Fredy Felipe MD LAB - CHEMISTRY JOSE ENRIQUE VELA Performing Organization Address City/[facility]/ZIP Co de Phone Number [address] [address], [facility] [phone] * MAGNESIUM BLOOD (02/19/2021 11:36 PM CDT) Magnesium 1.9 1.6 - 2.6 mg/dL 02/20/2021 12:[address] [facility] Blood BLOOD SPECIMEN / Unknown Venipuncture / Unknown 02/19/2021 11:36 PM CDT 02/19/2021 11:41 PM CDT Fredy Felipe MD LAB - CHEMISTRY JOSE ENRIQUE VELA Performing Organization Address [facility]/ZIP Co de Phone Number [address] [address], [place] [phone] * CALCIUM IONIZED WHOLE BLOOD (02/19/2021 11:36 PM CDT) Calcium Ionized 1.20 mmol/L 02/19/2021 11:[address] [facility] pH 7.43 7.35 - 7.45 pH 02/19/2021 11:[address] [facility] Ionized Calcium pH Adjusted 1.21 1.19 - 1.34 mmol/L 02/19/2021 11:[address] [facility] Blood BLOOD SPECIMEN / Unknown Venipuncture / Unknown 02/19/2021 11:36 PM CDT 02/19/2021 11:40 PM CDT Fredy Felipe MD LAB - CHEMISTRY JOSE ENRIQUE VELA Performing Organization Address City/[facility]/ZIP Co de Phone Number [address] [address], [place] [phone] * XR CHEST 1VW PORTABLE (02/19/2021 5:10 [...] is normal. Dictated by Rico Sawant DO (manager residential). I, Dr. NAOMY LAZO MD, [facility] have personally reviewed and interpreted this examination/study. This report was electronically signed by NAOMY LAZO MD, [facility] ??on 02/20/2021 2:18 PM . Narrative 02/20/2021 [...] is normal. Dictated by Rico Sawant DO (manager residential). IDr. NAOMY MD, [facility] have personally reviewedand interpreted this examination/study. This report was electronically signed by NAOMY LAZO MD, [facility] on 02/20/2021 2:18 PM . Fredy [...] Dr. Carrion Dictated by Bety Rose MD (manager residential). This report was approved ??by Bety Rose [...] Dr. Carrion Dictated by Bety Rose MD (manager residential). This report was approved by Bety Rose on 02/20/2021 11:19 AM . I, Dr. JASWINDER CARRION have personally reviewed and interpreted this examination/study. This report was electronically signed by JASWINDER CARRION on02/20/2021 11:38 AM . Fredy Felipe MD MR ORDERABLES * TYPE + SCREEN PANEL (02/19/2021 7:27 AM CDT) Antibody Screen NEG 8:50 AM CDT [facility] ABO Rh O POS 02/19/2021 8:50 AM CDT [facility] Blood Bank BLOOD SPECIMEN / Unknown Venipuncture / Unknown 02/19/2021 7:27 AM CDT 02/19/2021 7:34 AM CDT Fredy Felipe MD LAB - BLOOD BANK ORD ERABLES [facility] [address] [place] [address], [facility] [phone] * XR CHEST 1VW PORTABLE (02/19/2021 5:26 [...] is normal. Dictated by Rico Sawant DO (manager residential). Dr. OSWALDO Yao have personally reviewed and [...] is normal. Dictated by Rico Sawant DO (manager residential). Dr. OSWALDO Yao have personally reviewed and interpreted this examination/study. This report was electronically signed by OSWALDO CLEMONS on 02/19/2021 3:43PM . Fredy Felipe MD DIAGNOSTIC IMAGING O RDERABLES * (ABNORMAL) CBC W AUTO DIFFERENTIAL (02/18/2021 11:03 PM [facility]) WBC 11.9(H) 3.5 - 10.5 10? 3 /uL 02/18/2021 11:19 PM [facility] RBC 4.74 4.30 - 5.70 10? 6 /uL 02/18/2021 11:19 PM [facility] Hemoglobin 13.1 12.0 - 17.6 g/dL 02/18/2021 11:19 PM [facility] Hematocrit 40.4 35.2 - 51.7 % 02/18/2021 11:19 PM [facility] MCV 85.2 80.7 - 98.3 fL 02/18/2021 11:19 PM [facility] MCH 27.6 26.7 - 34.0 pg 02/18/2021 11:19 PM [facility] MCHC 32.4 30.8 - 35.9 g/dL 02/18/2021 11:19 PM [facility] Platelet Count 325 150 - 400 10? 3 /uL 02/18/2021 11:19 PM [facility] RDW-SD 43.3 36.0 - 50.0 fL 02/18/2021 11:19 PM [facility] RDW-CV 14.0 11.2 - 14.8 % 02/18/2021 11:19 PM [facility] MPV 9.2(L) 9.4 - 12.9 fL 02/18/2021 11:19 PM [facility] nRBC Absolute 0.00 0 10? 3 /uL 02/18/2021 11:19 PM [facility] nRBC Auto 0.0 0 /100 WBC 02/18/2021 11:19 PM [facility] Neutrophils % 79.2(H) 35.0 - 70.0 % 02/18/2021 11:19 PM [facility] Lymphocytes % 10.3(L) 20.0 - 43.0 % 02/18/2021 11:19 PM [facility] Monocytes % 9.5 5.0 - 13.0 % 02/18/2021 11:[address] [facility] Eosinophils % 0.3 0.0 - 6.0 % 02/18/2021 11:19 PM [facility] Basophil % 0.2 0.0 - 2.0 % 02/18/2021 11:[address] [facility] Neutrophils Absolute 9.4(H) 1.6 - 7.0 10? 3 /uL 02/18/2021 11:[address] [facility] Lymphocyte Absolute 1.2 1.1 - 3.9 10? 3 /uL 02/18/2021 11:19 PM [facility] Monocytes Absolute 1.13(H) 0.26 - 1.07 10? 3 /uL 02/18/2021 11:19 PM [facility] Eosinophils Absolute 0.04 0.00 - 0.47 10? 3 /uL 02/18/2021 11:[address] [facility] Basophils Absolute 0.02 0.00 - 0.08 10? 3 /uL 02/18/2021 11:19 PM [facility] Immature Granulocytes % 0.5 0.0 - 1.0 % 02/18/2021 11:19 PM [facility] Immature Granulocytes Absolute 0.06 02/18/2021 11:19 PM [facility] Blood BLOOD SPECIMEN / Unknown Venipuncture / Unknown 02/18/2021 11:03 PM CDT 02/18/2021 11:08 PM CDT Fredy Felipe MD LAB - HEMATOLOGY ORD ERABLES [facility] [address] [place] [address], [facility] [phone] * (ABNORMAL) BASIC METABOLIC PANEL (CALCIUM TOTAL) (02/18/2021 11:03 PM CDT) BUN 9 7 - 26 mg/dL 02/18/2021 11:[address] [facility] Creatinine 0.75 0.71 - 1.16 mg/dL 02/18/2021 11:32 PM [facility] Sodium 142 136 - 145 mmol/L 02/18/2021 11:32 PM [facility] Potassium 3.9 3.5 - 4.5 mmol/L 02/18/2021 11:32 PM [facility] Chloride 108(H) 98 - 107 mmol/L 02/18/2021 11:32 PM [facility] CO2 25 22 - 29 mmol/L 02/18/2021 11:32 PM [facility] Glucose 92 70 - 115 mg/dL 02/18/2021 11:32 PM [facility] Calcium 8.4 8.4 - 10.2 mg/dL 02/18/2021 11:32 PM [facility] Anion Gap 13 8 - 18 02/18/2021 11:32 PM [facility] BUN/Creatinine Ratio 12 7 - 23 02/18/2021 11:32 PM [facility] Osmolality Calculated 292 270 - 300 mOsm/kg 02/18/2021 11:32 PM [facility] eGFR by CKD-EPI >90 >=90 mL/min/1.7 3 m2 02/18/2021 11:32 PM [facility] Blood BLOOD SPECIMEN / Unknown Venipuncture / Unknown 02/18/2021 11:03 PM CDT 02/18/2021 11:08 PM T Fredy Felipe MD LAB - CHEMISTRY JOSE ENRIQUE VELA [facility] Organization Address City/State/ZIP Co de Phone Number [facility] [address] [place] [address], [facility] [phone] * (ABNORMAL) BLOOD GASES ART + COOX PANEL (02/18/2021 11:03 PM CDT) pH Arterial 7.46(H) 7.35 - 7.45 pH 02/18/2021 11:11 PM [facility] pO2 Arterial 145(H) 80 - 100 mmHg 02/18/2021 11:11 PM [facility] pCO2 Arterial 37 35 - 45 mmHg 11:11 PM [facility] HCO3 Arterial 26 20 - 30 mmol/l 02/18/2021 11:11 PM [facility] BE Arterial 2.5(H) -2.0 - 2.0 mmol/L 02/18/2021 11:11 PM [facility] Oxyhemoglobin Arterial 97.5 % 02/18/2021 11:11 PM [facility] Dexoyhemoglobin (HHB) % 0.1 % 02/18/2021 11:11 PM [facility] Methemoglobin <0.8 0.0 - 2.0 % 02/18/2021 11:11 PM [facility] Carboxyhemoglobin 1.7 0.0 - 2.0 % 2020 11:11 PM [facility] O2 Content Arterial 18.8 Interpret within clinical context mg/dL 02/18/2021 11:11 PM [facility] Hemoglobin by COOX 13.5 12.0 - 17.6 g/dL 02/18/2021 11:11 PM [facility] O2 Saturation Arterial 100 90 - 100 % 02/18/2021 11:11 PM [facility] FI O2 Arterial 40.0 % 02/18/2021 11:11 PM [facility] Blood, arterial ARTERIAL BLOOD SPECIMEN / Unknown Arterial Puncture / Unknown 02/18/2021 11:03 PM T 02/18/2021 11:08 PM [facility] - 02/18/2021 11:11 PM [facility] Carboxyhemoglobin Normal Concentration: Non-smokers: 0-2%; Smokers: 0-9%; Toxic: >20% Fredy Felipe MD LAB - BLOOD GASES OR DERABLES [facility] [address] [place] [id number], [facility] [phone] * PT-INR [facility] (02/18/2021 11:03 PM [facility]) PT 14.1 12.1 - 14.8 Seconds 02/18/2021 11:23 PM [facility] INR 1.1 See Comment 02/18/2021 11:[address] [facility] Comment:The suggested therap eutic range for standard coumadin (warfarin) therapy is an INR of 2.0-3.0. For high-risk patients (Mechanical Mitral Valve Prosthesis, etc.), the suggested prophylactic therapeutic range is an INR of 2.5-3.5. Blood BLOOD SPECIMEN / Unknown Venipuncture / Unknown 02/18/2021 11:03 PM CDT 02/18/2021 11:08 PM CDT Fredy Felipe MD LAB - COAGULATION OR DERABLES Performing Organization Address [facility]/ZIP Co de Phone Number [address] [address], [facility] [phone] * (ABNORMAL) PHOSPHORUS BLOOD (02/18/2021 11:03 PM CDT) Phosphorus 2.3(L) 2.8 - 5.1 mg/dL 02/18/2021 11:[address] [facility] Blood BLOOD SPECIMEN / Unknown Venipuncture / Unknown 02/18/2021 11:03 PM CDT 02/18/2021 11:08 PM CDT Fredy Felipe MD LAB - CHEMISTRY JOSE ENRIQUE VELA Performing Organization Address [facility] Co de Phone Number [address] [address], [facility] [phone] * MAGNESIUM BLOOD (02/18/2021 11:03 PM CDT) Magnesium 1.7 1.6 - 2.6 mg/dL 02/18/2021 11:[address] [facility] Blood BLOOD SPECIMEN / Unknown Venipuncture / Unknown 02/18/2021 11:03 PM CDT 02/18/2021 11:08 PM CDT Fredy Felipe MD LAB - CHEMISTRY JOSE ENRIQUE VELA Performing Organization Address [facility]/ZIP Co de Phone Number [address] [address], [facility] [phone] * (ABNORMAL) CALCIUM IONIZED WHOLE BLOOD (02/18/2021 11:03 PM CDT) Calcium Ionized 1.15 mmol/L 02/18/2021 11:[address] [facility] pH 7.45 7.35 - 7.45 pH 02/18/2021 11:[address] [facility] Ionized Calcium pH Adjusted 1.17(L) 1.19 - 1.34 mmol/L 02/18/2021 11:[address] [facility] Blood BLOOD SPECIMEN / Unknown Venipuncture / Unknown 02/18/2021 11:03 PM CDT 02/18/2021 11:08 PM CDT Fredy Felipe MD LAB - CHEMISTRY JOSE ENRIQUE VELA [facility] Organization Address City/State/ZIP Co de Phone Number [facility] [address] [place] [address], [facility] [phone] * XR CHEST 1VW PORTABLE (02/18/2021 5:25 AM CDT) Anatomical Region Laterality Modality Chest Radiographic Sera ging 02/18/2021 2:01 PM CDT Impressions 02/18/2021 4:01 PM CDT IMPRESSION: 1.Support devices as above. 2.Bilateral pulmonary opacities redemonstrated. Report dictated by Simone Alexander MD, PhD (manager residential). I, Dr. CHOCO JIN MD have personally [...] Report dictated by Simone Alexander MD, PhD (manager residential). I, Dr. CHOCO JIN MD have personally reviewed and interpreted this examination/study. This report was electronically signed by CHOCO JIN MD on02/18/2021 4:01 PM . Fredy Felipe MD DIAGNOSTIC IMAGING O RDERABLES * (ABNORMAL) CBC W AUTO DIFFERENTIAL (02/18/2021 12:04 AM CDT) WBC 16.3(H) 3.5 - 10.5 10? 3 /uL 02/18/2021 12:16 AM [facility] RBC 4.69 4.30 - 5.70 10? 6 /uL 02/18/2021 12:16 AM [facility] Hemoglobin 13.1 12.0 - 17.6 g/dL 02/18/2021 12:16 AM [facility] Hematocrit 40.9 35.2 - 51.7 % 02/18/2021 12:16 AM [facility] MCV 87.2 80.7 - 98.3 fL 02/18/2021 12:16 AM [facility] MCH 27.9 26.7 - 34.0 pg 02/18/2021 12:16 AM [facility] MCHC 32.0 30.8 - 35.9 g/dL 02/18/2021 12:16 AM [facility] Platelet Count 292 150 - 400 10? 3 /uL 02/18/2021 12:16 AM [facility] RDW-SD 45.6 36.0 - 50.0 fL 02/18/2021 12:16 AM [facility] RDW-CV 14.2 11.2 - 14.8 % 02/18/2021 12:16 AM [facility] MPV 9.4 9.4 - 12.9 fL 02/18/2021 12:16 AM [facility] nRBC Absolute 0.00 0 10? 3 /uL 02/18/2021 12:16 AM [facility] nRBC Auto 0.0 0 /100 WBC 02/18/2021 12:16 AM [facility] Neutrophils % 85.7(H) 35.0 - 70.0 % 02/18/2021 12:16 AM [facility] Lymphocytes % 6.2(L) 20.0 - 43.0 % 02/18/2021 12:16 AM [facility] Monocytes % 7.4 5.0 - 13.0 % 02/18/2021 12:16 AM [facility] Eosinophils % 0.0 0.0 - 6.0 % 02/18/2021 12:16 AM [facility] Basophil % 0.2 0.0 - 2.0 % 02/18/2021 12:16 AM [facility] Neutrophils Absolute 13.9(H) 1.6 - 7.0 10? 3 /uL 02/18/2021 12:16 AM [facility] Lymphocyte Absolute 1.0(L) 1.1 - 3.9 10? 3 /uL 02/18/2021 12:16 AM [facility] Monocytes Absolute 1.21(H) 0.26 - 1.07 10? 3 /uL 02/18/2021 12:16 AM [facility] Eosinophils Absolute 0.00 0.00 - 0.47 10? 3 /uL 02/18/2021 12:16 AM [facility] Basophils Absolute 0.03 0.00 - 0.08 10? 3 /uL 02/18/2021 12:16 AM [facility] Immature Granulocytes % 0.5 0.0 - 1.0 % 02/18/2021 12:16 AM [facility] Immature Granulocytes Absolute 0.08 02/18/2021 12:16 AM [facility] Blood BLOOD SPECIMEN / Unknown Venipuncture / Unknown 02/18/2021 12:04 AM CDT 02/18/2021 12:08 AM CDT Fredy Felipe MD LAB - HEMATOLOGY ORD ERABLES Performing Organization Address City/State/[facility] Co de Phone Number [facility] [address] [place] [address], [facility] [phone] * BASIC METABOLIC PANEL (CALCIUM TOTAL) (02/18/2021 12:04 AM CDT) BUN 11 7 - 26 mg/dL 02/18/2021 12:32 AM [facility] Creatinine 0.83 0.71 - 1.16 mg/dL 02/18/2021 12:32 AM [facility] Sodium 140 136 - 145 mmol/L 02/18/2021 12:32 AM [facility] Potassium 4.2 3.5 - 4.5 mmol/L 02/18/2021 12:32 AM [facility] Chloride 106 98 - 107 mmol/L 02/18/2021 12:32 AM [facility] CO2 24 22 - 29 mmol/L 02/18/2021 12:32 AM [facility] Glucose 102 70 - 115 mg/dL 02/18/2021 12:32 AM [facility] Calcium 8.6 8.4 - 10.2 mg/dL 02/18/2021 12:32 AM [facility] Anion Gap 14 8 - 18 02/18/2021 12:32 AM [facility] BUN/Creatinine Ratio 13 7 - 23 02/18/2021 12:32 AM [facility] Osmolality Calculated 290 270 - 300 mOsm/kg 02/18/2021 12:32 AM [facility] eGFR by CKD-EPI >90 >=90 mL/min/1.7 3 m2 02/18/2021 12:32 AM [facility] Blood BLOOD SPECIMEN / Unknown Venipuncture / Unknown 02/18/2021 12:04 AM T 02/18/2021 12:08 AM [facility] Fredy Felipe MD LAB - CHEMISTRY JOSE ENRIQUE VELA [facility] Organization Address City/State/ZIP Co de Phone Number [facility] [address] [place] [phone], [facility] [phone] * (ABNORMAL) BLOOD GASES ART + COOX PANEL (02/18/2021 12:04 AM [facility]) pH Arterial 7.40 7.35 - 7.45 pH 02/18/2021 12:11 AM [facility] pO2 Arterial 126(H) 80 - 100 mmHg 02/18/2021 12:11 AM [facility] pCO2 Arterial 42 35 - 45 mmHg 12:11 AM [facility] HCO3 Arterial 26 20 - 30 mmol/l 02/18/2021 12:11 AM [facility] BE Arterial 1.0 -2.0 - 2.0 mmol/L 02/18/2021 12:11 AM [facility] Oxyhemoglobin Arterial 97.0 % 02/18/2021 12:11 AM [facility] Dexoyhemoglobin (HHB) % 0.7 % 02/18/2021 12:11 AM [facility] Methemoglobin 1.0 0.0 - 2.0 % 02/18/2021 12:11 AM [facility] Carboxyhemoglobin 1.3 0.0 - 2.0 % 2020 12:11 AM [facility] O2 Content Arterial 18.7 Interpret within clinical context mg/dL 02/18/2021 12:11 AM [facility] Hemoglobin by COOX 13.6 12.0 - 17.6 g/dL 02/18/2021 12:11 AM [facility] O2 Saturation Arterial 99 90 - 100 % 02/18/2021 12:11 AM [facility] FI O2 Arterial 60.0 % 02/18/2021 12:11 AM [facility] Blood, arterial ARTERIAL BLOOD SPECIMEN / Unknown Arterial Puncture / Unknown 02/18/2021 12:04 AM T 02/18/2021 12:06 AM [facility] Narrative [facility] - 02/18/2021 12:11 AM [facility] Carboxyhemoglobin Normal Concentration: Non-smokers: 0-2%; Smokers: 0-9%; Toxic: >20% Fredy Felipe MD LAB - BLOOD GASES OR DERABLES [facility] [address] [place] [address], [facility] [phone] * PT-INR [facility] (02/18/2021 12:04 AM [facility]) PT 14.3 12.1 - 14.8 Seconds 02/18/2021 12:25 AM [facility] INR 1.1 See Comment 02/18/2021 12:25 AM [facility] Comment:The suggested therap eutic range for standard coumadin (warfarin) therapy is an INR of 2.0-3.0. For high-risk patients (Mechanical Mitral Valve Prosthesis, etc.), the suggested prophylactic therapeutic range is an INR of 2.5-3.5. Blood BLOOD SPECIMEN / Unknown Venipuncture / Unknown 02/18/2021 12:04 AM CDT 02/18/2021 12:07 AM CDT Fredy Felipe MD LAB - COAGULATION OR DERABLES Performing Organization Address City/[facility]/ZIP Co de Phone Number [address] [address], [facility] [phone] * PHOSPHORUS BLOOD (02/18/2021 12:04 AM CDT) Phosphorus 3.4 2.8 - 5.1 mg/dL 02/18/2021 12:[address] [facility] Blood BLOOD SPECIMEN / Unknown Venipuncture / Unknown 02/18/2021 12:04 AM CDT 02/18/2021 12:08 AM CDT Fredy Felipe MD LAB - CHEMISTRY JOSE ENRIQUE VELA Performing Organization Address [facility]/ZIP Co de Phone Number [address] [address], [facility] [phone] * MAGNESIUM BLOOD (02/18/2021 12:04 AM CDT) Magnesium 2.0 1.6 - 2.6 mg/dL 02/18/2021 12:[address] [facility] Blood BLOOD SPECIMEN / Unknown Venipuncture / Unknown 02/18/2021 12:04 AM CDT 02/18/2021 12:08 AM CDT Fredy Felipe MD LAB - CHEMISTRY JOSE ENRIQUE VELA Performing Organization Address [facility]/ZIP Co de Phone Number [address] [address], [facility] [phone] * (ABNORMAL) CALCIUM IONIZED WHOLE BLOOD (02/18/2021 12:04 AM CDT) Calcium Ionized 1.14 mmol/L 02/18/2021 12:[address] [facility] pH 7.41 7.35 - 7.45 pH 02/18/2021 12:[address] [facility] Ionized Calcium pH Adjusted 1.14(L) 1.19 - 1.34 mmol/L 02/18/2021 12:[address] [facility] Blood BLOOD SPECIMEN / Unknown Venipuncture / Unknown 02/18/2021 12:04 AM CDT 02/18/2021 12:06 AM CDT Fredy Felipe MD LAB - CHEMISTRY JOSE ENRIQUE VELA [facility] [address] [place] [address], [facility] [phone] * XR CHEST 1VW PORTABLE (02/17/2021 10:00 PM CDT) Anatomical Region Laterality Modality Chest Radiographic Sera ging 02/18/2021 9:45 AM CDT Impressions 02/18/2021 9:58 AM CDT IMPRESSION: 1.Support devices as above. 2.No pneumothorax. 3.Middle and lower lung zone atelectasis. Report dictated by Simone Alexander MD, PhD (manager residential). I, Dr. NENA CLEMENTE have personally reviewed [...] inferior chest wall. Procedure Note Nena Clemente, DO - 02/18/2021 EXAMINATION: XR CHEST 1VW PORTABLE, [...] Report dictated by Simone Alexander MD, PhD (manager residential). I, Dr. NENA CLMEENTE have personally reviewed and interpreted this examination/study. [...] the diaphragm with the terminus outside the [id number]. *Bilateral apically oriented thoracostomy tubes are reidentified. [...] on 02/17/2021. Dictated by Rico Sawant DO (manager residential). I, Dr. OSWALDO CLEMONS have personally reviewed [...] below the diaphragm with the terminusoutside the [id number]. *Bilateral apically oriented thoracostomy tubes are reidentified. [...] on 02/17/2021. Dictated by Rico Sawant DO (manager residential). I, Dr. OSWALDO CLEMONS have personally reviewed and interpreted this examination/study. This report was electronically signed by OSWALDO CLEMONS on 02/17/2021 2:39PM . Fredy Felipe MD DIAGNOSTIC IMAGING O RDERABLES * (ABNORMAL) CBC W AUTO DIFFERENTIAL (02/17/2021 12:13 AM T) WBC 21.4(H) 3.5 - 10.5 10? 3 /uL 02/17/2021 12:26 AM [facility] RBC 4.87 4.30 - 5.70 10? 6 /uL 02/17/2021 12:26 AM [facility] Hemoglobin 13.5 12.0 - 17.6 g/dL 02/17/2021 12:26 AM [facility] Hematocrit 41.8 35.2 - 51.7 % 02/17/2021 12:26 AM [facility] MCV 85.8 80.7 - 98.3 fL 02/17/2021 12:26 AM [facility] MCH 27.7 26.7 - 34.0 pg 02/17/2021 12:26 AM [facility] MCHC 32.3 30.8 - 35.9 g/dL 02/17/2021 12:26 AM [facility] Platelet Count 300 150 - 400 10? 3 /uL 02/17/2021 12:26 AM [facility] RDW-SD 45.7 36.0 - 50.0 fL 02/17/2021 12:26 AM [facility] RDW-CV 14.5 11.2 - 14.8 % 02/17/2021 12:26 AM [facility] MPV 9.0(L) 9.4 - 12.9 fL 02/17/2021 12:26 AM [facility] nRBC Absolute 0.00 0 10? 3 /uL 02/17/2021 12:26 AM [facility] nRBC Auto 0.0 0 /100 WBC 02/17/2021 12:26 AM [facility] Neutrophils % 88.2(H) 35.0 - 70.0 % 02/17/2021 12:26 AM [facility] Lymphocytes % 5.1(L) 20.0 - 43.0 % 02/17/2021 12:26 AM [facility] Monocytes % 6.0 5.0 - 13.0 % 02/17/2021 12:26 AM [facility] Eosinophils % 0.0 0.0 - 6.0 % 02/17/2021 12:26 AM [facility] Basophil % 0.1 0.0 - 2.0 % 02/17/2021 12:26 AM [facility] Neutrophils Absolute 18.9(H) 1.6 - 7.0 10? 3 /uL 02/17/2021 12:26 AM [facility] Lymphocyte Absolute 1.1 1.1 - 3.9 10? 3 /uL 02/17/2021 12:26 AM [facility] Monocytes Absolute 1.28(H) 0.26 - 1.07 10? 3 /uL 02/17/2021 12:26 AM [facility] Eosinophils Absolute 0.00 0.00 - 0.47 10? 3 /uL 02/17/2021 12:26 AM [facility] Basophils Absolute 0.02 0.00 - 0.08 10? 3 /uL 02/17/2021 12:26 AM [facility] Immature Granulocytes % 0.6 0.0 - 1.0 % 02/17/2021 12:26 AM [facility] Immature Granulocytes Absolute 0.12 02/17/2021 12:26 AM CDT [facility] Blood BLOOD SPECIMEN / Unknown Venipuncture / Unknown 02/17/2021 12:13 AM CDT 02/17/2021 12:19 AM CDT Fredy Felipe MD LAB - HEMATOLOGY ORD ERABLES Performing Organization Address [facility] Co de Phone Number [address] [address], [facility] [phone] * (ABNORMAL) PT-INR [facility] (02/17/2021 12:13 AM CDT) PT 14.9(H) 12.1 - 14.8 Seconds 02/17/2021 12:[address] [facility] INR 1.2 See Comment 02/17/2021 12:[address] [facility] Comment:The suggested therap eutic range for standard coumadin (warfarin) therapy is an INR of 2.0-3.0. For high-risk patients (Mechanical Mitral Valve Prosthesis, etc.), the suggested prophylactic therapeutic range is an INR of 2.5-3.5. Blood BLOOD SPECIMEN / Unknown Venipuncture / Unknown 02/17/2021 12:13 AM CDT 02/17/2021 12:25 AM CDT Fredy Felipe MD LAB - COAGULATION OR DERABLES Performing Organization Address City/[facility] Co de Phone Number [address] [address], [facility] [phone] * (ABNORMAL) BASIC METABOLIC PANEL (CALCIUM TOTAL) (02/17/2021 12:12 AM CDT) BUN 9 7 - 26 mg/dL 02/17/2021 12:43 AM CDT [facility] Creatinine 0.82 0.71 - 1.16 mg/dL 02/17/2021 12:43 AM CDT [facility] Sodium 140 136 - 145 mmol/L 02/17/2021 12:43 AM T [facility] Potassium 4.1 3.5 - 4.5 mmol/L 02/17/2021 12:43 AM [facility] Chloride 105 98 - 107 mmol/L 02/17/2021 12:43 AM [facility] CO2 27 22 - 29 mmol/L 02/17/2021 12:43 AM [facility] Glucose 118(H) 70 - 115 mg/dL 02/17/2021 12:43 AM [facility] Calcium 9.1 8.4 - 10.2 mg/dL 02/17/2021 12:43 AM [facility] Anion Gap 12 8 - 18 02/17/2021 12:43 AM [facility] BUN/Creatinine Ratio 11 7 - 23 02/17/2021 12:43 AM [facility] Osmolality Calculated 290 270 - 300 mOsm/kg 02/17/2021 12:43 AM [facility] eGFR by CKD-EPI >90 >=90 mL/min/1.7 3 m2 02/17/2021 12:43 AM [facility] Blood BLOOD SPECIMEN / Unknown Venipuncture / Unknown 02/17/2021 12:12 AM CDT 02/17/2021 12:19 AM CDT Fredy Felipe MD LAB - CHEMISTRY JOSE ENRIQUE VELA [address] [address], [facility] [phone] * PHOSPHORUS BLOOD (02/17/2021 12:12 AM CDT) Phosphorus 3.5 2.8 - 5.1 mg/dL 02/17/2021 12:[address] [facility] Blood BLOOD SPECIMEN / Unknown Venipuncture / Unknown 02/17/2021 12:12 AM CDT 02/17/2021 12:19 AM CDT Fredy Felipe MD LAB - CHEMISTRY JOSE ENRIQUE VELA [address] [address], [place] [phone] * MAGNESIUM BLOOD (02/17/2021 12:12 AM CDT) Magnesium 1.9 1.6 - 2.6 mg/dL 02/17/2021 12:[address] [facility] Blood BLOOD SPECIMEN / Unknown Venipuncture / Unknown 02/17/2021 12:12 AM CDT 02/17/2021 12:19 AM CDT Fredy Felipe MD LAB - CHEMISTRY JOSE ENRIQUE VELA Performing Organization Address City/[facility]/ZIP Co de Phone Number [address] [address], [facility] [phone] * CALCIUM IONIZED WHOLE BLOOD (02/17/2021 12:12 AM CDT) Calcium Ionized 1.18 mmol/L 02/17/2021 12:[address] [facility] pH 7.43 7.35 - 7.45 pH 02/17/2021 12:[address] [facility] Ionized Calcium pH Adjusted 1.19 1.19 - 1.34 mmol/L 02/17/2021 12:[address] [facility] Blood BLOOD SPECIMEN / Unknown Venipuncture / Unknown 02/17/2021 12:12 AM CDT 02/17/2021 12:18 AM CDT Fredy Fleipe MD LAB - CHEMISTRY JOSE ENRIQUE VELA Performing Organization Address City/[facility]/ZIP Co de Phone Number [address] [address], [place] [phone] * (ABNORMAL) BLOOD GASES ART + COOX PANEL (02/17/2021 12:12 AM CDT) pH Arterial 7.46(H) 7.35 - 7.45 pH 02/17/2021 12:22 AM CDT [facility] pO2 Arterial 108(H) 80 - 100 mmHg 02/17/2021 12:22 AM CDT [facility] pCO2 Arterial 40 35 - 45 mmHg 12:22 AM [facility] HCO3 Arterial 28 20 - 30 mmol/l 02/17/2021 12:22 AM [facility] BE Arterial 4.2(H) -2.0 - 2.0 mmol/L 02/17/2021 12:22 AM [facility] Oxyhemoglobin Arterial 96.5 % 02/17/2021 12:22 AM [facility] Dexoyhemoglobin (HHB) % 1.0 % 02/17/2021 12:22 AM [facility] Methemoglobin 0.9 0.0 - 2.0 % 02/17/2021 12:22 AM [facility] Carboxyhemoglobin 1.6 0.0 - 2.0 % 2020 12:22 AM [facility] O2 Content Arterial 19.1 Interpret within clinical context mg/dL 02/17/2021 12:22 AM [facility] Hemoglobin by COOX 14.0 12.0 - 17.6 g/dL 02/17/2021 12:22 AM [facility] O2 Saturation Arterial 99 90 - 100 % 02/17/2021 12:22 AM [facility] FI O2 Arterial 35.0 % 02/17/2021 12:22 AM [facility] Blood, arterial ARTERIAL BLOOD SPECIMEN / Unknown Arterial Puncture / Unknown 02/17/2021 12:12 AM CDT 02/17/2021 12:18 AM [facility] - 02/17/2021 12:22 AM [facility] Carboxyhemoglobin Normal Concentration: Non-smokers: 0-2%; Smokers: 0-9%; Toxic: >20% Fredy Felipe MD LAB - BLOOD GASES OR DERABLES [facility] [address] [place] [address], [facility] [phone] * CT HEAD WO CONTRAST (02/16/2021 3:00 [...] mucosal disease. Dictated by Uyen Garcia MD (manager residential). I, Dr. JUNE MADRID have personally reviewed [...] mucosal disease. Dictated by Uyen Garcia MD (manager residential). Dr. JUNE Yao have personally reviewed and [...] courses to the stomach out of the [id number]. Chest wall and lower neck subcutaneous emphysema is decreased from prior study. Pneumomediastinum is decreased from prior study. Mild left basilar atelectasis is unchanged. Pleural effusion may contribute to opacity. There is no pneumothorax. The cardiomediastinal silhouette is partially obscured. Dictated by Alverto Ames MD (manager residential). Dr. EULA Yao have personally reviewed and [...] courses to the stomach out of the [id number]. Chest wall and lower neck subcutaneous emphysema is decreased from prior study. Pneumomediastinum is decreased from prior study. Mild left basilar atelectasis is unchanged. Pleural effusion may contribute to opacity. There is no pneumothorax. The cardiomediastinal silhouette is partially obscured. Dictated by Alverto Ames MD (manager residential). I, Dr. EULA GONZALEZ have personally reviewed and interpreted this examination/study. This report was electronically signed by EULA GONZALEZ on 02/16/2021 12:26 PM . Fredy Felipe MD DIAGNOSTIC IMAGING O RDERABLES * (ABNORMAL) DIFFERENTIAL MANUAL (02/15/2021 10:34 PM CDT) WBC (corrected for NRBC) 24.3 10? 3 /uL 02/15/2021 11:58 PM CDT [facility] Total Cell Count 100 02/16/20 21 11:58 PM CDT [facility] Neutrophils Absolute Manual 22.36(H) 1.60 - 7.00 10? 3 /uL 02/15/2021 11:58 PM CDT [facility] Comment:(BANDS+SEGS) x WBC = NEUT # (ANC) Lymphocyte Absolute Manual 0.49(L) 1.10 - 3.90 10? 3 /uL 02/15/2021 11:58 PM CDT [facility] Monocytes Absolute Manual 1.46(H) 0.26 - 1.07 10? 3 /uL 02/15/2021 11:58 PM [facility] Band % Manual 4 0 - 10 % 02/15/2021 11:58 PM [facility] Neutrophil % Manual 88(H) 35 - 70 % 02/15/2021 11:58 PM [facility] Lymphocyte % Manual 2(L) 20 - 43 % 02/15/2021 11:58 PM [facility] Monocytes % Manual 6 5 - 13 % 02/15/2021 11:58 PM [facility] Platelet Estimate Adequate Adequate 02/15/2021 11:58 PM [facility] Anisocytosis 1+(A) None 02/15/2021 11:58 PM [facility] Blood BLOOD SPECIMEN / Unknown Venipuncture / Unknown 02/15/2021 10:34 PM CDT 02/15/2021 10:50 PM CDT Fredy Felipe MD LAB - HEMATOLOGY ORD ERABLES Performing Organization Address City/[facility]/ZIP Co de Phone Number [facility] [address] [place] [address], [facility] [phone] * PT-INR [facility] (02/15/2021 10:34 PM CDT) PT 14.6 12.1 - 14.8 Seconds 02/15/2021 11:05 PM [facility] INR 1.2 See Comment 02/15/2021 11:05 PM [facility] Comment:The suggested therap eutic range for standard coumadin (warfarin) therapy is an INR of 2.0-3.0. For high-risk patients (Mechanical Mitral Valve Prosthesis, etc.), the suggested prophylactic therapeutic range is an INR of 2.5-3.5. Blood BLOOD SPECIMEN / Unknown Venipuncture / Unknown 02/15/2021 10:34 PM CDT 02/15/2021 10:45 PM CDT Fredy Felipe MD LAB - COAGULATION OR DERABLES [facility] [address] [place] [phone], [facility] [phone] * PHOSPHORUS BLOOD (02/15/2021 10:34 PM CDT) Phosphorus 4.0 2.8 - 5.1 mg/dL 02/15/2021 11:[address] [facility] Blood BLOOD SPECIMEN / Unknown Venipuncture / Unknown 02/15/2021 10:34 PM CDT 02/15/2021 10:50 PM CDT Fredy Felipe MD LAB - CHEMISTRY JOSE ENRIQUE VELA Performing Organization Address City/[facility]/ZIP Co de Phone Number [address] [phone], [facility] [phone] * MAGNESIUM BLOOD (02/15/2021 10:34 PM CDT) Magnesium 1.8 1.6 - 2.6 mg/dL 02/15/2021 11:[address] [facility] Blood BLOOD SPECIMEN / Unknown Venipuncture / Unknown 02/15/2021 10:34 PM CDT 02/15/2021 10:50 PM CDT Fredy Felipe MD LAB - CHEMISTRY JOSE ENRIQUE VELA Performing Organization Address City/[facility]/ZIP Co de Phone Number [address] [phone], [facility] [phone] * (ABNORMAL) BASIC METABOLIC PANEL (CALCIUM TOTAL) (02/15/2021 10:34 PM CDT) BUN 9 7 - 26 mg/dL 02/15/2021 11:17 PM CDT [facility] Creatinine 0.90 0.71 - 1.16 mg/dL 02/15/2021 11:17 PM CDT [facility] Sodium 144 136 - 145 mmol/L 02/15/2021 11:17 PM CDT [facility] Potassium 4.0 3.5 - 4.5 mmol/L 02/15/2021 11:17 PM [facility] Chloride 106 98 - 107 mmol/L 02/15/2021 11:17 PM [facility] CO2 26 22 - 29 mmol/L 02/15/2021 11:17 PM [facility] Glucose 118(H) 70 - 115 mg/dL 02/15/2021 11:17 PM [facility] Calcium 9.1 8.4 - 10.2 mg/dL 02/15/2021 11:17 PM [facility] Anion Gap 16 8 - 18 02/15/2021 11:17 PM [facility] BUN/Creatinine Ratio 10 7 - 23 02/15/2021 11:17 PM [facility] Osmolality Calculated 298 270 - 300 mOsm/kg 02/15/2021 11:17 PM [facility] eGFR by CKD-EPI >90 >=90 mL/min/1.7 3 m2 02/15/2021 11:17 PM [facility] Blood BLOOD SPECIMEN / Unknown Venipuncture / Unknown 02/15/2021 10:34 PM CDT 02/15/2021 10:50 PM T Fredy Felipe MD LAB - CHEMISTRY JOSE ENRIQUE VELA [facility] Organization Address City/State/ZIP Co de Phone Number [facility] [address] [place] [phone], [facility] [phone] * (ABNORMAL) BLOOD GASES ART + COOX PANEL (02/15/2021 10:34 PM CDT) pH Arterial 7.48(H) 7.35 - 7.45 pH 02/15/2021 10:50 PM [facility] pO2 Arterial 71(L) 80 - 100 mmHg 02/15/2021 10:50 PM [facility] pCO2 Arterial 38 35 - 45 mmHg 10:50 PM [facility] HCO3 Arterial 28 20 - 30 mmol/l 02/15/2021 10:50 PM [facility] BE Arterial 4.6(H) -2.0 - 2.0 mmol/L 02/15/2021 10:50 PM [facility] Oxyhemoglobin Arterial 93.4 % 02/15/2021 10:50 PM [facility] Dexoyhemoglobin (HHB) % 3.9 % 02/15/2021 10:50 PM [facility] Methemoglobin <0.8 0.0 - 2.0 % 02/15/2021 10:50 PM [facility] Carboxyhemoglobin 2.0 0.0 - 2.0 % 2020 10:50 PM [facility] O2 Content Arterial 18.8 Interpret within clinical context mg/dL 02/15/2021 10:50 PM [facility] Hemoglobin by COOX 14.3 12.0 - 17.6 g/dL 02/15/2021 10:50 PM [facility] O2 Saturation Arterial 96 90 - 100 % 02/15/2021 10:50 PM [facility] FI O2 Arterial 40.0 % 02/15/2021 10:50 PM [facility] Blood, arterial ARTERIAL BLOOD SPECIMEN / Unknown Arterial Puncture / Unknown 02/15/2021 10:34 PM CDT 02/15/2021 10:45 PM [facility] - 02/15/2021 10:50 PM T Carboxyhemoglobin Normal Concentration: Non-smokers: 0-2%; Smokers: 0-9%; Toxic: >20% Fredy Felipe MD LAB - BLOOD GASES OR DERABLES Performing Organization Address City/State/[facility] Co de Phone Number [facility] [address] [place] [address], [facility] [phone] * (ABNORMAL) CBC W AUTO DIFFERENTIAL (02/15/2021 10:34 PM CDT) WBC 24.3(H) 3.5 - 10.5 10? 3 /uL 02/15/2021 10:57 PM [facility] RBC 4.98 4.30 - 5.70 10? 6 /uL 02/15/2021 10:57 PM [facility] Hemoglobin 13.8 12.0 - 17.6 g/dL 02/15/2021 10:57 PM [facility] Hematocrit 42.1 35.2 - 51.7 % 02/15/2021 10:57 PM [facility] MCV 84.5 80.7 - 98.3 fL 02/15/2021 10:57 PM [facility] MCH 27.7 26.7 - 34.0 pg 02/15/2021 10:57 PM [facility] MCHC 32.8 30.8 - 35.9 g/dL 02/15/2021 10:57 PM [facility] Platelet Count 315 150 - 400 10? 3 /uL 02/15/2021 10:57 PM [facility] RDW-SD 44.1 36.0 - 50.0 fL 02/15/2021 10:57 PM [facility] RDW-CV 14.4 11.2 - 14.8 % 02/15/2021 10:57 PM [facility] MPV 9.0(L) 9.4 - 12.9 fL 02/15/2021 10:57 PM [facility] nRBC Absolute 0.00 0 10? 3 /uL 02/15/2021 10:57 PM [facility] nRBC Auto 0.0 0 /100 WBC 02/15/2021 10:57 PM [facility] Blood BLOOD SPECIMEN / Unknown Venipuncture / Unknown 02/15/2021 10:34 PM CDT 02/15/2021 10:50 PM CDT Fredy Felipe MD LAB - HEMATOLOGY ORD ERABLES [facility] [address] [place] [address], [facility] [phone] * (ABNORMAL) CALCIUM IONIZED WHOLE BLOOD (02/15/2021 10:34 PM CDT) Calcium Ionized 1.17 mmol/L 02/15/2021 10:53 PM [facility] pH 7.50(H) 7.35 - 7.45 pH 02/15/2021 10:53 PM [facility] Ionized Calcium pH Adjusted 1.22 1.19 - 1.34 mmol/L 02/15/2021 10:53 PM [facility] Blood BLOOD SPECIMEN / Unknown Venipuncture / Unknown 02/15/2021 10:34 PM CDT 02/15/2021 10:46 PM CDT Fredy Felipe MD LAB - CHEMISTRY JOSE ENRIQUE Pena Organization Address City/State/ZIP Co de Phone Number [facility] [address] [place] [address], [facility] [phone] * (ABNORMAL) BLOOD GASES ART + COOX PANEL (02/15/2021 10:41 AM CDT) pH Arterial 7.46(H) 7.35 - 7.45 pH 02/15/2021 10:47 AM [facility] pO2 Arterial 99 80 - 100 mmHg 02/15/2021 10:47 AM [facility] pCO2 Arterial 37 35 - 45 mmHg 10:47 AM [facility] HCO3 Arterial 26 20 - 30 mmol/l 02/15/2021 10:47 AM [facility] BE Arterial 2.6(H) -2.0 - 2.0 mmol/L 02/15/2021 10:47 AM [facility] Oxyhemoglobin Arterial 96.5 % 02/15/2021 10:47 AM [facility] Dexoyhemoglobin (HHB) % 1.2 % 02/15/2021 10:47 AM [facility] Methemoglobin 0.9 0.0 - 2.0 % 02/15/2021 10:47 AM [facility] Carboxyhemoglobin 1.4 0.0 - 2.0 % 2020 10:47 AM [facility] O2 Content Arterial 21.4 Interpret within clinical context mg/dL 02/15/2021 10:47 AM [facility] Hemoglobin by COOX 15.7 12.0 - 17.6 g/dL 02/15/2021 10:47 AM [facility] O2 Saturation Arterial 99 90 - 100 % 02/15/2021 10:47 AM [facility] FI O2 Arterial 50.0 % 02/15/2021 10:[address] [facility] Blood, arterial ARTERIAL BLOOD SPECIMEN / Unknown Arterial Puncture / Unknown 02/15/2021 10:41 AM CDT 02/15/2021 10:[address] [facility] - 02/15/2021 10:47 AM CDT Carboxyhemoglobin Normal Concentration: Non-smokers: 0-2%; Smokers: 0-9%; Toxic: >20% Fredy Felipe MD LAB - BLOOD GASES OR DERABLES Performing Organization Address City/[facility]/ZIP Co de Phone Number [address] [address], [facility] [phone] * (ABNORMAL) CALCIUM IONIZED WHOLE BLOOD (02/15/2021 10:41 AM CDT) Pathologist [facility] [place] Calcium Ionized 1.19 mmol/L 02/15/2021 10:47 AM [facility] pH 7.46(H) 7.35 - 7.45 pH 02/15/2021 10:[address] [facility] Ionized Calcium pH Adjusted 1.22 1.19 - 1.34 mmol/L 02/15/2021 10:[address] [facility] Blood BLOOD SPECIMEN / Unknown Venipuncture / Unknown 02/15/2021 10:41 AM CDT 02/15/2021 10:44 AM CDT Fredy Felipe MD LAB - CHEMISTRY ORDE RABSILVA [address] [address], [facility] [phone] * (ABNORMAL) DIFFERENTIAL MANUAL (02/15/2021 10:40 AM CDT) WBC (corrected for NRBC) 35.7 10? 3 /uL 02/15/2021 11:[address] [facility] Total Cell Count 100 02/15/2021 11:[address] [facility] Neutrophils Absolute Manual 33.56(H) 1.60 - 7.00 10? 3 /uL 02/15/2021 11:39 AM [facility] Comment:(BANDS+SEGS) x WBC = NEUT # (ANC) Lymphocyte Absolute Manual 0.71(L) 1.10 - 3.90 10? 3 /uL 02/15/2021 11:39 AM [facility] Monocytes Absolute Manual 1.43(H) 0.26 - 1.07 10? 3 /uL 02/15/2021 11:39 AM [facility] Band % Manual 2 0 - 10 % 02/15/2021 11:39 AM [facility] Neutrophil % Manual 92(H) 35 - 70 % 02/15/2021 11:39 AM [facility] Lymphocyte % Manual 2(L) 20 - 43 % 02/15/2021 11:39 AM [facility] Monocytes % Manual 4(L) 5 - 13 % 02/15/2021 11:39 AM [facility] Platelet Estimate Adequate Adequate 02/15/2021 11:39 AM [facility] RBC Morphology Normal 02/15/2021 11:39 AM [facility] Blood BLOOD SPECIMEN / Unknown Venipuncture / Unknown 02/15/2021 10:40 AM CDT 02/15/2021 10:48 AM CDT Fredy Felipe MD LAB - HEMATOLOGY TYLOR MOORE Performing Organization Address [facility] Co de Phone Number [facility] [address] [place] [address], [facility] [phone] * (ABNORMAL) PHOSPHORUS BLOOD (02/15/2021 10:40 AM CDT) Phosphorus 2.4(L) 2.8 - 5.1 mg/dL 02/15/2021 11:[address] [facility] Blood BLOOD SPECIMEN / Unknown Venipuncture / Unknown 02/15/2021 10:40 AM CDT 02/15/2021 10:48 AM CDT Fredy Felipe MD LAB - CHEMISTRY JOSE ENRIQUE VEAL [facility] [address] [place] [address], [place] [phone] * MAGNESIUM BLOOD (02/15/2021 10:40 AM CDT) Pathologist [facility] [place] Magnesium 1.8 1.6 - 2.6 mg/dL 02/15/2021 11:[address] [facility] Blood BLOOD SPECIMEN / Unknown Venipuncture / Unknown 02/15/2021 10:40 AM CDT 02/15/2021 10:48 AM CDT Fredy Felipe MD LAB - CHEMISTRY JOSE ENRIQUE VELA [facility] [address] [place] [address], [facility] [phone] * (ABNORMAL) CBC W AUTO DIFFERENTIAL (02/15/2021 10:40 AM CDT) [facility] WBC 35.7(H) 3.5 - 10.5 10? 3 /uL 02/15/2021 11:16 AM [facility] RBC 5.37 4.30 - 5.70 10? 6 /uL 02/15/2021 11:16 AM [facility] Hemoglobin 15.2 12.0 - 17.6 g/dL 02/15/2021 11:16 AM [facility] Hematocrit 45.5 35.2 - 51.7 % 02/15/2021 11:16 AM [facility] MCV 84.7 80.7 - 98.3 fL 02/15/2021 11:16 AM [facility] MCH 28.3 26.7 - 34.0 pg 02/15/2021 11:16 AM [facility] MCHC 33.4 30.8 - 35.9 g/dL 02/15/2021 11:16 AM [facility] Platelet Count 358 150 - 400 10? 3 /uL 02/15/2021 11:16 AM [facility] RDW-SD 43.5 36.0 - 50.0 fL 02/15/2021 11:16 AM [facility] RDW-CV 14.2 11.2 - 14.8 % 02/15/2021 11:16 AM [facility] MPV 8.9(L) 9.4 - 12.9 fL 02/15/2021 11:16 AM [facility] nRBC Absolute 0.00 0 10? 3 /uL 02/15/2021 11:16 AM [facility] nRBC Auto 0.0 0 /100 WBC 02/15/2021 11:16 AM [facility] Blood BLOOD SPECIMEN / Unknown Venipuncture / Unknown 02/15/2021 10:40 AM CDT 02/15/2021 10:48 AM T Fredy Felipe MD LAB - HEMATOLOGY ORD ERABLES [facility] [address] [place] [address], [facility] [phone] * (ABNORMAL) COMPREHENSIVE METABOLIC PANEL (02/15/2021 10:40 AM T) BUN 10 7 - 26 mg/dL 02/15/2021 11:14 AM [facility] Creatinine 1.02 0.71 - 1.16 mg/dL 02/15/2021 11:14 AM [facility] Sodium 144 136 - 145 mmol/L 02/15/2021 11:14 AM [facility] Potassium 3.8 3.5 - 4.5 mmol/L 02/15/2021 11:14 AM [facility] Chloride 105 98 - 107 mmol/L 02/15/2021 11:14 AM [facility] CO2 26 22 - 29 mmol/L 02/15/2021 11:14 AM [facility] Glucose 171(H) 70 - 115 mg/dL 02/15/2021 11:14 AM [facility] Calcium 9.6 8.4 - 10.2 mg/dL 02/15/2021 11:14 AM [facility] Protein Total 6.9 6.0 - 8.3 g/dL 02/15/2021 11:14 AM [facility] Albumin 3.5 3.4 - 5.0 g/dL 02/15/2021 11:14 AM [facility] Bilirubin Total 0.4 0.2 - 1.2 mg/dL 02/15/2021 11:14 AM [facility] Alkaline Phosphatase 97 40 - 150 U/L 02/15/2021 11:14 AM [facility] ALT 78(H) 5 - 55 U/L 02/15/2021 11:14 AM [facility] AST 96(H) 5 - 34 U/L 02/15/2021 11:14 AM [facility] Anion Gap 17 8 - 18 02/15/2021 11:14 AM [facility] BUN/Creatinine Ratio 10 7 - 23 02/15/2021 11:14 AM [facility] Osmolality Calculated 301(H) 270 - 300 mOsm/kg 02/15/2021 11:14 AM [facility] Albumin/Globulin Ratio 1.0(L) 1.1 - 2.3 02/15/2021 11:14 AM [facility] eGFR by CKD-EPI >90 >=90 mL/min/1.7 3 m2 02/15/2021 11:14 AM [facility] Blood BLOOD SPECIMEN / Unknown Venipuncture / Unknown 02/15/2021 10:40 AM CDT 02/15/2021 10:48 AM T Fredy Felipe MD LAB - CHEMISTRY JOSE ENRIQUE [facility] Organization Address City/State/[facility] Co de Phone Number [facility] [address] [place] [address], [facility] [phone] * TEG 6 GLOBAL HEMOSTASIS W/ LYSIS (02/15/2021 8:14 AM CDT) Citrated Kaolin R (Reaction Time) 7.0 4.6 - 9.1 min 02/15/2021 9:28 AM [facility] Citrated Kaolin LY30 (Lysis) 0.6 0.0 - 2.6 % 02/15/2021 9:28 AM [facility] Citrated RapidTEG MA (Max Amplitude) 65 52 - 70 mm 02/15/2021 9:[address] [facility] Citrated Functional Fibrinogen MA (Max Amplitude) 23 15 - 32 mm 02/15/2021 9:[address] [facility] Blood BLOOD SPECIMEN / Unknown Venipuncture / Unknown 02/15/2021 8:14 AM CDT 02/15/2021 8:20 AM CDT Fredy Felipe MD LAB - HEMATOLOGY ORD ERABLES [facility] [address] [place] [address], [facility] [phone] * (ABNORMAL) TEG 6S PLATELET MAPPING (02/15/2021 8:14 AM CDT) TEGPLM (Max Amplitude) Koalin 64 53 - 68 mm 02/15/2021 9:[address] [facility] TEGPLM (Max Amplitude) ACTF 14 2 - 19 mm 02/15/2021 9:[address] [facility] TEGPLM (Max Amplitude) ADP 15(L) 45 - 69 mm 02/15/2021 9:[address] [facility] TEGPLM (Max Amplitude) AA 64 51 - 71 mm 02/15/2021 9:[address] [facility] TEGPLM %Inhibition ADP 99(H) 0 - 17 % 02/15/2021 9:[address] [facility] TEGPLM %Inhibition AA 1 0 - 11 % 02/15/2021 9:[address] [facility] TEGPLM %Aggregation ADP 1(L) 83 - 100 % 02/15/2021 9:[address] [facility] TEGPLM % Aggregation AA 99 89 - 100 % 02/15/2021 9:[address] [facility] Blood BLOOD SPECIMEN / Unknown Venipuncture / Unknown 02/15/2021 8:14 AM CDT 02/15/2021 8:20 AM CDT Fredy Felipe MD LAB - HEMATOLOGY ORD ERABLES [facility] [address] [place] [address], [facility] [phone] * XR CHEST 1VW PORTABLE (02/15/2021 7:15 [...] findings above. Dictated by Rico Sawant DO (manager residential). I, Dr. EULA GONZALEZ have personally reviewed [...] findings above. Dictated by Rico Sawant DO (manager residential). I, Dr. EULA GONZALEZ have personally reviewed and interpreted this examination/study. This report was electronically signed by EULA GONZALEZ on 02/15/2021 7:28 PM . Fredy Felipe MD DIAGNOSTIC IMAGING O RDERABLES * (ABNORMAL) URINALYSIS W/MICROSCOPIC NO CULTURE (02/15/2021 6:46 AM CDT) Color UA Yellow Straw, Yellow 02/15/2021 7:10 AM [facility] Clarity UA Slt Cloudy(A) Clear 02/15/2021 7:10 AM [facility] Specific [place] UA 1.014 1.005 - 1.030 02/15/2021 7:10 AM [facility] pH UA 6.0 5.0 - 8.0 pH 02/15/2021 7:10 AM [facility] Protein UA 2+(A) Negative 02/15/2021 7:10 AM [facility] Glucose UA 3+(A) Negative 02/15/2021 7:10 AM [facility] Ketone UA Trace(A) Negative 02/15/2021 7:10 AM [facility] Bilirubin UA Negative Negative 02/15/2021 7:10 AM [facility] Blood UA Negative Negative 02/15/2021 7:10 AM [facility] Nitrite UA Negative Negative 02/15/2021 7:10 AM [facility] Leukocyte Esterase Negative Negative 02/15/2021 7:10 AM [facility] Urobilinogen UA Negative Negative mg/dL 02/15/2021 7:10 AM [facility] RBC UA 3-5 None Seen, 0-2, 3-5 /HPF 02/15/2021 7:10 AM [facility] WBC UA 0-5 None Seen, 0-5 /HPF 02/15/2021 7:10 AM [facility] Squamous Epithelial Cells UA None Seen None Seen, 0-2, 3-5 /HPF 02/15/2021 7:10 AM [facility] Mucus UA 1+ /LPF 02/15/2021 7:10 AM [facility] Urine URINE SPECIMEN OBTAINED BY CLEAN CATCH PROCEDURE / Unknown Collection / Unknown 02/15/2021 6:46 AM CDT 02/15/2021 6:[address] [facility] - 02/15/2021 7:10 AM CDT Fredy Felipe MD LAB - URINALYSIS ORD ERABLES [facility] [address] [place] [phone], [facility] [phone] * (ABNORMAL) URINE DRUG SCREEN IMMUNOASSAY (02/15/2021 6:46 AM T) [facility] Amphetamines Screen Urine Negative Negative : < 1000 ng/mL 02/15/2021 7:18 AM [facility] Barbiturates Screen Urine Negative Negative : < 200 ng/mL 02/15/2021 7:18 AM [facility] Benzodiazepine Screen Urine Positive(A) Negative : < 200 ng/mL 02/15/2021 7:18 AM [facility] Comment: Positive urine benzodiazepine screening results should be confirmed by another generally accepted non-immunological method such as gas chromatography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 [...] AM CDT 8.6 mg G Tube sodium chloride (Inhalant) 7 % nebulizer solution 4 mL 4 mL, Inhalation, 2 TIMES DAILY, First dose on 03/08/21 at 2100, Until Discontinued $ Given 03/12/2021 11:36 AM CDT 4 mL $ Given 03/11/2021 11:43 PM CDT 4 mL $ Given 03/11/2021 11:59 AM CDT 4 mL surgilube gel PRN, Starting on Wed03/05/21 at 1624, Until Wed03/12/21 at 2210, Intra-op $ Given 03/05/2021 4:24 PM CDT 15 mL Ope rative Site documented in this encounter Active and Recently Administered Medications Times are shown in CDT. Scheduled Medication Order 03/10/2021 03/11/2021 03/12/2021 0.9% NaCl injection 3 mL(Linked Group 1) 3 mL, Intracatheter, EVERY 8 HOURS, First dose on 02/15/21 at 0600, Until Discontinued, Flush peripheral IV catheter with 3 mL of normal saline every 8 hours. 0669 ($ Given - Provider: Fide Rivero RN)1337 ($ Given - Provider: Willie Coreas RN)9430 ($ Given - Provider: Fide Rivero, RN) 0602 ($ Given - Provider: Fide Rivero, RN)1329 ($ Given - Provider: Alix Mijares RN)2154 ($ Given - Provider: Dino Castillo, RN) 0536 ($ Given - Provider: Dino Castillo, RN)1510 ($ Given - Provider: Asif Alexis, AIDA) acetylcysteine (Mucomyst) 20 % solution 600 mg 600 mg (3 mL), Inhalation, EVERY 6 HOURS, First dose on 03/08/21 at 1800, Until Discontinued 0026 ($ Given - Provider: Kaylee Colunga RCP)0540 ($ Given - Provider: Kaylee Colunga RCP)1232 (Held - Provider: Jose Oliva RCP - Reason: See Comments)1737 ($ Given - Provider: Jose Oliva SKIN CARE THERAPIST)2359 ($ Given - Provider: Jaime Baker SKIN CARE THERAPIST) 0528 ($ Given - Provider: Jaime Baker RCP)1159 ($ Given - Provider: Natalya Quinteros SKIN CARE THERAPIST)1700 ($ Given - Provider: Natalya Quinteros SKIN CARE THERAPIST)2344 (Canceled Entry - Provider: Jaime Baker RCP) 0551 ($ Given - Provider: Jaime Baker RCP)1136 ($ Given - Provider: Idalia Boles [facility])1702 ($ Given - Provider: Idalia Boles SKIN CARE THERAPIST) albuterol-ipratropium (Duo-Neb) nebulizer solution 3 mL 3 mL, Inhalation, EVERY 6 HOURS, First dose on 03/08/21 at 1800, Until Discontinued 0026 ($ Given - Provider: Kaylee Colunga RCP)0540 ($ Given - Provider: Kaylee Colnuga RCP)1229 ($ Given - Provider: Jose Oliva RCP)1736 ($ Given - Provider: Jose Oliva RCP)2359 ($ Given - Provider: Jaime Baker RCP) 0528 ($ Given - Provider: Jaime Baker RCP)1159 ($ Given - Provider: Natalya Quinteros RCP)1700 ($ Given - Provider: Natalya Quinteros RCP)2344 ($ Given - Provider: Jaime Baker SKIN CARE THERAPIST) 0551 ($ Given - Provider: Jaime Baker RCP)1136 ($ Given - Provider: Idalia Boles SKIN CARE THERAPIST)1702 ($ Given - Provider: Idalia Boles SKIN CARE THERAPIST) amLODIPine (Norvasc) tablet 10 mg 10 mg, Enteral Tube, DAILY, First dose (after last modification) on Wed03/05/21 at 1300, Until Discontinued 1337 ($ Given - Provider: Willie Coreas RN) 1330 ($ Given - Provider: Alix Mijares RN) 1128 ($ Given - Provider: Willie Coreas, AIDA) artificial tears ophthalmic ointment Each Eye, EVERY 8 HOURS, First dose on Wed02/19/21 at 2200, Until Discontinued 0652 ($ Given - Provider: Fide Rivero RN)1338 ($ Given - Provider: Willie Coreas, AIDA)2123 ($ Given - Provider: Fide [...] Dino Castillo RN)0430 (Stopped - Provider: Dino Castillo RN) chlorhexidine (Peridex) 0.12 % oral solution 15 mL 15 mL, Mouth/Throat, 2 TIMES DAILY, First dose on Wed02/19/21 at 2100, Until Discontinued, Swab oral mucosa for 30 seconds. Do not brush teeth immediately after use. . WASTE DISPOSAL INSTRUCTIONS: Black Bin Disposal required. 904 ($ Given - Provider: Willie Coreas RN)2122 ($ Given - Provider: Fide Rivero RN) 811 ($ Given - Provider: Alix Mijares RN)2152 ($ Given - Provider: Dino Castillo, AIDA) 09 ($ Given - Provider: Willie Coreas RN)2099 (Due) docusate sodium (Colace) solution 100 mg 100 mg, Enteral Tube, 2 TIMES DAILY, First dose on Wed02/26/21 at 1130, Until Discontinued, Hold for >2 BMs/day. 904 ($ Given - Provider: Willie Coreas RN)2122 (Not Administered - Provider: Fide Rivero RN - Reason: See Comments - Comment: Diarrhea twice today) 811 ($ Given - Provider: Alix Mijares RN)2152 ($ Given - Provider: Dino Castillo RN) 09 ($ Given - Provider: Willie Coreas RN)2099 (Due) enoxaparin (Lovenox) injection 40 mg 40 mg, Subcutaneous, EVERY 12 HOURS, First dose on Wed02/21/21 at 1500, Until Discontinued, (for prefilled syringes) do not expel air bubble from the syringe prior to the injection Remind Patient to not rub injection site. Could cause hematoma. 904 ($ Given - Provider: Willie Coreas RN)2122 ($ Given - Provider: Fide Rivero RN) 811 ($ Given - Provider: Alix Mijares RN)2152 ($ Given - Provider: Dino Castillo, AIDA) 09 ($ Given - Provider: Willie Coreas RN)2100 [...] Intravenous, EVERY 12 HOURS, First dose on 03/09/21 at 1100, Until Discontinued, Indication for anti-infective therapy: Documented infection, Site of anti-infective therapy: Intra-abdominal 1129 ($ New Bag/Syringe - Provider: Willie Coreas RN)1338 (Stopped - Provider: Willie Coreas RN)2355 ($ New Bag/Syringe - Provider: Fide Rivero RN) 0205 (Stopped - Provider: Tatianna Toney RN)1059 ($ New Bag/Syringe - Provider: Alix Mijares RN)1229 (Stopped - Provider: Alix Mijares RN)2302 ($ [...] RN)1356 ($ New Bag/Syringe - Provider: Willie Coreas, AIDA)1751 (Stopped - Provider: Willie Coreas RN)2145 ($ New Bag/Syringe - Provider: Fide Rivero RN) 0205 (Stopped - Provider: Tatianna Toney RN)0607 ($ New Bag/Syringe - Provider: Fide Rivero RN)1007 (Stopped - Provider: Alix Mijares RN)1336 ($ New Bag/Syringe - Provider: Alix Mijares RN)1736 (Stopped - Provider: Alix Mijares RN)2155 ($ New Bag/Syringe - Provider: Dino Castillo, AIDA) 0207 (Stopped - Provider: Dino Castillo, AIDA)0543 ($ New Bag/Syringe - Provider: Dino Castillo, AIDA)0950 (Stopped - Provider: Willie Coreas RN)1511 ($ New Bag/Syringe - Provider: Asif Alexis RN)1813 ($ New Bag/Syringe - Provider: Delilah Parrish, AIDA)2159 (Due: Stopped - Provider: Delilah Parrish, AIDA) propranolol (Inderal) tablet 10 mg 10 mg, Enteral Tube, EVERY 8 HOURS, First dose (after last modification) on 03/08/21 at 2200, Until Discontinued, Avoid abrupt withdrawal 0652 ($ Given - Provider: Fide Rivero RN)1337 ($ Given - Provider: Willie Coreas, AIDA)2123 ($ Given - Provider: Fide Rivero RN) 0602 ($ Given - Provider: Fide Rivero RN)1330 ($ Given - Provider: Alix Mijares, AIDA)2153 ($ Given - Provider: Dino Castillo, RN) 0535 ($ Given - Provider: Dino Castillo, AIDA)1511 ($ Given - Provider: Asif Alexis, AIDA) psyllium (Metamucil) 28 % packet 1 packet 1 packet, Per G Tube, DAILY, First dose (after last modification) on 03/09/21 at 0900, Until Discontinued 0907 ($ Given - Provider: Willie Coreas RN) 0818 ($ Given - Provider: Alix Mijares, AIDA) 0912 ($ Given - Provider: Willie Coreas, AIDA) senna (Senokot) tablet 8.6 mg 8.6 mg, Enteral Tube, DAILY, First dose on Wed02/26/21 at 1130, Until Discontinued, Hold for >2 BMs/day. 0905 ($ Given - Provider: Willie Coreas RN) 0812 ($ Given - Provider: Alix Mijares RN) 0909 ($ Given - Provider: Willie Coreas RN) sodium chloride (Inhalant) 7 % nebulizer solution 4 mL 4 mL, Inhalation, 2 TIMES DAILY, First dose on 03/08/21 at 2100, Until Discontinued 0027 ($ Given - Provider: Kaylee Colunga RCP)1229 ($ Given - Provider: Jose Oliva RCP)2359 ($ Given - Provider: Jaime Baker RCP) 1159 ($ Given - Provider: Natalya Quinteros RCP)2343 ($ Given - Provider: Jaime Baker RCP) 1136 ($ Given - Provider: Idalia Boles RCP) PRN Medication Order 03/10/2021 03/11/2021 03/12/2021 0.9% NaCl injection 1-10 mL(Linked Group 1) 1-10 mL, Intracatheter, PRN, Other, peripheral line flush, Starting on 02/15/21 at 0304, Until 03/12/21 at 2210, Flush peripheral IV catheter with 1-10 mL of normal saline before and after medications and prn to clear blood from the line or to verify patency. acetaminophen (Tylenol) solution 650 mg 650 mg, Enteral Tube, EVERY 4 HOURS PRN, Fever, Mild Pain, Headache, Starting on Wed03/04/21 at 1135, Until Wed03/12/21 at 2210 artificial tears ophthalmic solution 1 drop 1 drop, Each Eye, EVERY 4 HOURS PRN, Dry Eyes, Starting on Wed02/16/21 at 1108, Until Wed03/12/21 at 2210 bisacodyl (Dulcolax) suppository 10 mg 10 mg, Rectal, DAILY PRN, Constipation, Starting on Wed02/27/21 at 1116, Until Wed03/12/21 at 2210 labetalol (Normodyne; Trandate) injection 20 mg 20 mg, Intravenous, EVERY 2 HOURS PRN, SBP greater than 160 mmHg, Starting on Wed03/04/21 at 2300, Until Wed03/12/21 at 2210, Max IV dose is 300mg/24 hours. 1126 ($ Given - Provider: Alix Mijares RN)1724 ($ Given - Provider: Alix Mijares RN) [...] Rivero RN)1123 ($ Given - Provider: Willie Coreas, AIDA)1622 ($ Given - Provider: Willie Coreas, RN)2140 ($ Given - Provider: Fide Rivero RN) 0603 ($ Given - Provider: Fide Rivero RN)1726 ($ Given - Provider: Alix Mijares RN) 0536 (See Alternative - Provider: Dino Castillo RN)1128 ($ Given - Provider: Willie Coreas, AIDA) oxyCODONE (immediate release) (Roxicodone) tablet 5 mg(Linked Group 2) 5 mg, Enteral Tube, EVERY 4 HOURS PRN, Moderate Pain, Starting on Wed02/26/21 at 1041, Until Wed03/12/21 at 2210 0259 (See Alternative - Provider: Fide Rivero RN)1123 (See Alternative - Provider: Willie Coreas, RN)1622 (See Alternative - Provider: Willie Coreas, RN)2140 (See Alternative - Provider: Fide Rivero RN) 0603 (See Alternative - Provider: Fide Rivero RN)1726 (See Alternative - Provider: Alix Mijares RN) 0536 ($ Given - Provider: Dino Castillo RN)1128 (See Alternative - Provider: Willie Coreas, RN) surgilube gel PRN, Starting on Wed03/05/21 [...] documented as of this encounter Care Teams 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
--- OUTSIDE RECORDS SUMMARY | 2024-05-23 03:25 | XMS_ITS | Encounter Summary ---
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 setting. There is no left pleural effusion. No pneumothorax. The cardiomediastinal silhouette is normal. Dictated by Phan Brothers MD (vice president and portfolio manager). Dr. EULA Yao have personally reviewed [...] 4:32 AM. Dictated by Arlen Abbott MD (vice president and portfolio manager). Najma, Dr. EULA GONZALEZ have personally [...] is intact. Dictated by Phan Brothers MD (vice president and portfolio manager). I, Dr. EULA GONZALEZ have personally [...] laparotomy today with possible closure * Yadira Vaughna RN - 02/24/2021 8:23 AM CDT Problem: Oxygenation/Respiratory Function Goal: Respiratory rate/effort will be within specified limits Outcome: Progressing Problem: Chest Tube Maintenance Goal: Chest tube therapy maintained as ordered Outcome: Progressing * Sonali Fraga MD - 02/24/2021 7:07 AM CDT [facility] Trauma ICU Progress Note Admit: 02/15/2021 [...] propofol, 0-80 mcg/kg/min, Last Rate: 45 mcg/kg/min (10/11/21 0639) TPN - CENTRAL LINE - ADULT [...] - CLINIMIX - DAY 1 Is&Os: 02/23 701 - 02/24 07 In: 2406.4 [I.V.:1924.8] Out: 3095 [Urine:1175; Drains:1920] Date 02/23/21699 - 02/24/2165802/24/21699 - 02/25/21 0659 Shift 8374-7509 1940-1649 24 Hour Total 2892-6042 9454-9931 24 Hour Total INTAKE I.V.(mL/kg/hr) 4055.7(2.1) 4055.7(1) [...] abnormalities Labs: CBC Recent Labs Component Name 02/24/212702/23/212002/21/212 WBC 13.9* 13.5* 14.5* HGB 11.8* 12.0 [...] not displayed. ABG Recent Labs Component Name 02/24/212702/23/211 02/22/21 0317 PH 7.44 7.43 7.41 PO2 110* [...] courses to the stomach out of the zeudk-tb-wxme. A right thoracostomy tube is unchanged in position. Small bilateral pleural effusions are suggested. Bibasilar airspace opacities may represent atelectasis and/or airspace disease. There is no pneumothorax. The cardiomediastinal silhouette is partially obscured. Dictated by Alverto Ames MD (vice president and portfolio manager). Dr. NENA Yao have personally reviewed [...] fracture identified. Dictated by Rico Sawant D.O. (Food Safety Specialist) Dr. CHOCO Yao MD have personally reviewed [...] are normal. Dictated by Rico Sawant DO (vice president and portfolio manager). Dr. AFRICA Yao M.D. have personally [...] coursing below the diaphragm, terminus outside the owczb-ga-yxzd. *There is a left subclavian approach central [...] is stable. Dictated by Rico Sawant DO (vice president and portfolio manager). Dr. AFRICA Yao M.D. have personally [...] below the diaphragm, the segments of the rysym-fw-ktdc. *There is a left subclavian approach central [...] is stable. Dictated by Phan Brothers MD (vice president and portfolio manager). Dr. SUNITA Yao have personally reviewed [...] is normal. Dictated by Rico Sawant DO (vice president and portfolio manager). I, Dr. NAOMY LAZO MD, FRCR [...] Dr. Carrion Dictated by Bety Rose MD (vice president and portfolio manager). This report was approved by Bety [...] is normal. Dictated by Rico Sawant DO (vice president and portfolio manager). I, Dr. OSWALDO CLEMONS have personally [...] Report dictated by Simone Alexander MD, PhD (vice president and portfolio manager). I, Dr. CHOCO JIN MD have [...] Report dictated by Simone Alexander MD, PhD (vice president and portfolio manager). I, Dr. NENA CLEMENTE have personally [...] the diaphragm with the terminus outside the wevtc-xn-yjvr. *Bilateral apically oriented thoracostomy tubes are reidentified. [...] on 02/17/2021. Dictated by Rico Sawant DO (vice president and portfolio manager). IDr. OSWALDO have personally reviewed and [...] mucosal disease. Dictated by Uyen Garcia MD (vice president and portfolio manager). Dr. JUNE Yao have personally reviewed [...] courses to the stomach out of the qmnsl-lp-rsoi. Chest wall and lower neck subcutaneous emphysema is decreased from prior study. Pneumomediastinum is decreased from prior study. Mild left basilar atelectasis is unchanged. Pleural effusion may contribute to opacity. There is no pneumothorax. The cardiomediastinal silhouette is partially obscured. Dictated by Alverto Ames MD (vice president and portfolio manager). Dr. EULA Yao have personally reviewed [...] findings above. Dictated by Rico Sawant DO (vice president and portfolio manager). Dr. EULA Yao have personally reviewed [...] the diaphragm, with its tip outside the wtxbg-cy-yxvx. Linear airspace opacities are seen in the right upper and mid lung. Findings may be related to compressive atelectasis or pulmonary contusion in the post traumatic setting. There are linear bibasilar opacities, likely representing atelectasis or aspiration in the posttraumatic/post intubated setting. There is no left pleural effusion. No pneumothorax. The cardiomediastinal silhouette is normal. Dictated by Phan Brothers MD (vice president and portfolio manager). Dr. EULA Yao have personally reviewed [...] 4:32 AM. Dictated by Arlen Abbott MD (vice president and portfolio manager). Najma, Dr. EULA GONZALEZ have personally [...] is intact. Dictated by Phan Brothers MD (vice president and portfolio manager). I, Dr. EULA GONZALEZ have personally [...] Fraga MD - 02/23/2021 6:23 AM CDT [facility] Trauma ICU Progress Note Admit: 02/15/2021 [...] Out: 2980 [Urine:1230; Drains:1750] Date 02/22/21699 - 02/23/21 0659 02/23/21699 - 02/24/21 0659 Shift 8502-0824 5413-5118 24 Hour Total 5832-7677 0296-2427 24 Hour Total INTAKE I.V.(mL/kg/hr) 1328.1(0.7) 1328.1 Tube 30 30 Shift Total(mL/kg) 1328.1(8.3) 30(0.2) 1358.1(8.5) OUTPUT Urine(mL/kg/hr) 860(0.4) 370 1230 Drains 820 309 7466 Shift Total(mL/kg) 1785(11.1) 1195(7.5) 2980(18.6) NET -456.9 [...] 392 BMP Recent Labs Component Name 02/23/21 00202/21/212 02/20/21 2326 POTASSIUM 4.2 4.3 4.0 CO2 [...] Labs Component Name 02/23/21 0021 02/22/21 0317 02/21/21 2312 PH 7.43 7.41 7.60* [...] fracture identified. Dictated by Rico Sawant D.O. (Food Safety Specialist) Dr. CHOCO Yao MD have personally reviewed [...] are normal. Dictated by Rico Sawant DO (vice president and portfolio manager). Dr. AFRICA Yao M.D. have personally [...] coursing below the diaphragm, terminus outside the sluxk-if-ulns. *There is a left subclavian approach central [...] is stable. Dictated by Rico Sawant DO (vice president and portfolio manager). I, Dr. AFRICA HENRIQUEZ M.D. have [...] below the diaphragm, the segments of the uufhh-cs-zykb. *There is a left subclavian approach central [...] is stable. Dictated by Phan Brothers MD (vice president and portfolio manager). I, Dr. SUNITA BAILEY have personally [...] is normal. Dictated by Rico Sawant DO (vice president and portfolio manager). Dr. NAOMY Yao MD, [facility] have personally reviewed and interpreted this examination/study. This report was electronically signed by NAOMY LAZO MD, [facility] on 02/20/2021 2:18 PM . MRI [...] Dr. Carrion Dictated by Bety Rose MD (vice president and portfolio manager). This report was approved by Bety [...] is normal. Dictated by Rico Sawant DO (vice president and portfolio manager). IDr. OSWALDO have personally reviewed and [...] Report dictated by Simone Alexander MD, PhD (vice president and portfolio manager). I, Dr. CHOCO JIN MD have [...] Report dictated by Simone Alexander MD, PhD (vice president and portfolio manager). I, Dr. NENA CLEMENTE have personally [...] the diaphragm with the terminus outside the feold-ke-wzfg. *Bilateral apically oriented thoracostomy tubes are reidentified. [...] on 02/17/2021. Dictated by Rico Sawant DO (vice president and portfolio manager). I, Dr. OSWALDO CLEMONS have personally [...] mucosal disease. Dictated by Uyen Garcia MD (vice president and portfolio manager). I, Dr. JUNE MADRID have personally [...] courses to the stomach out of the aqcgp-ol-sykx. Chest wall and lower neck subcutaneous emphysema is decreased from prior study. Pneumomediastinum is decreased from prior study. Mild left basilar atelectasis is unchanged. Pleural effusion may contribute to opacity. There is no pneumothorax. The cardiomediastinal silhouette is partially obscured. Dictated by Alverto Ames MD (vice president and portfolio manager). Dr. EULA Yao have personally reviewed [...] findings above. Dictated by Rico Sawant DO (vice president and portfolio manager). Dr. EULA Yao have personally reviewed [...] the diaphragm, with its tip outside the bshup-vw-ntzs. Linear airspace opacities are seen in the right upper and mid lung. Findings may be related to compressive atelectasis or pulmonary contusion in the post traumatic setting. There are linear bibasilar opacities, likely representing atelectasis or aspiration in the posttraumatic/post intubated setting. There is no left pleural effusion. No pneumothorax. The cardiomediastinal silhouette is normal. Dictated by Phan Brothers MD (vice president and portfolio manager). I, Dr. EULA MHAPSEKAR have personally [...] 4:32 AM. Dictated by Arlen Abbott MD (vice president and portfolio manager). Dr. EULA Yao have personally reviewed [...] is intact. Dictated by Phan Brothers MD (vice president and portfolio manager). Dr. EULA Yao have personally reviewed [...] Fraga MD - 02/22/2021 5:14 AM CDT [facility] Trauma ICU Progress Note Admit: 02/15/2021 [...] Date 02/21/21699 - 02/22/2165802/22/21699 - 02/23/21658 Shift 7922-7052 7685-8301 24 Hour Total 9807-5430 6798-8497 24 Hour Total INTAKE I.V.(mL/kg/hr) 1643.3(0.9) 1709.9 [...] ALKPHOS 97 Coags Recent Labs Component Name 02/21/21231102/20/21232502/19/21233502/15/21 2234 02/15/21 0642 02/15/21 0308 PT 15.2* [...] fracture identified. Dictated by Rico Sawant D.O. (Food Safety Specialist) Dr. CHOCO Yao MD have personally reviewed [...] are normal. Dictated by Rico Sawant DO (vice president and portfolio manager). Dr. AFRICA Yao M.D. have personally [...] coursing below the diaphragm, terminus outside the ozkel-df-rqac. *There is a left subclavian approach central [...] is stable. Dictated by Rico Sawant DO (vice president and portfolio manager). Dr. AFRICA Yao M.D. have personally [...] below the diaphragm, the segments of the dvwop-gx-jfuw. *There is a left subclavian approach central [...] is stable. Dictated by Phan Brothers MD (vice president and portfolio manager). Dr. SUNITA Yao have personally reviewed [...] is normal. Dictated by Rico Sawant DO (vice president and portfolio manager). I, Dr. NAOMY LAZO MD, FRCR [...] Dr. Carrion Dictated by Bety Rose MD (vice president and portfolio manager). This report was approved by Bety [...] is normal. Dictated by Rico Sawant DO (vice president and portfolio manager). I, Dr. OSWALDO CLEMONS have personally [...] Report dictated by Simone Alexander MD, PhD (vice president and portfolio manager). I, Dr. CHOCO JIN MD have [...] Report dictated by Simone Alexander MD, PhD (vice president and portfolio manager). IDr. NENA have personally reviewed and [...] the diaphragm with the terminus outside the pvfkr-pb-nxyw. *Bilateral apically oriented thoracostomy tubes are reidentified. [...] on 02/17/2021. Dictated by Rico Sawant DO (vice president and portfolio manager). Dr. OSWALDO Yao have personally reviewed [...] mucosal disease. Dictated by Uyen Garcia MD (vice president and portfolio manager). IDr. JUNE have personally reviewed and [...] courses to the stomach out of the etdfm-gb-pgka. Chest wall and lower neck subcutaneous emphysema is decreased from prior study. Pneumomediastinum is decreased from prior study. Mild left basilar atelectasis is unchanged. Pleural effusion may contribute to opacity. There is no pneumothorax. The cardiomediastinal silhouette is partially obscured. Dictated by Alverto Ames MD (vice president and portfolio manager). Dr. EULA Yao have personally reviewed [...] findings above. Dictated by Rico Sawant DO (vice president and portfolio manager). Dr. EULA Yao have personally reviewed [...] the diaphragm, with its tip outside the odqqy-oh-gkpi. Linear airspace opacities are seen in the right upper and mid lung. Findings may be related to compressive atelectasis or pulmonary contusion in the post traumatic setting. There are linear bibasilar opacities, likely representing atelectasis or aspiration in the posttraumatic/post intubated setting. There is no left pleural effusion. No pneumothorax. The cardiomediastinal silhouette is normal. Dictated by Phan Brothers MD (vice president and portfolio manager). Dr. EULA Yao have personally reviewed [...] 4:32 AM. Dictated by Arlen Abbott MD (vice president and portfolio manager). Najma, Dr. EULA GONZALEZ have personally [...] is intact. Dictated by Phan Brothers MD (vice president and portfolio manager). I, Dr. EULA GONZALEZ have personally [...] Name: Marilee Cano RN * Cecilia Garber RD/ETSELLA - 02/21/2021 10:41 AM CDT Clinical Nutrition [...] clinical nutrition guidelines. Estimated Energy Needs: KCAL: 4950-8229 (11-14kcla/kg ABW) Protein (g): 129 (2.0g/kg IBW) Fluid (ml): 1 ml/kcal Needs based on: Kcal/kg- (Comment) (ibw 64.5kg ) Recommended Access Route: [id number] * Sonali Fraga MD - 02/21/2021 5:18 AM CDT [facility] Trauma ICU Progress Note Admit: 02/15/2021 [...] to OR for exploratory laparotomy. Recent Events: 10/8 - T max 101.1, HDS. Pt [...] 02/20/21699 - 02/21/2165802/21/21699 - 02/22/21 0659 Shift 1124-4062 8282-3978 24 Hour Total 4181-8849 6006-7594 24 Hour Total INTAKE I.V.(mL/kg/hr) 1591.5(0.8) 1343 [...] not displayed. ABG Recent Labs Component Name 02/20/21232502/20/21 0307 02/19/21 233 PH 7.41 7.41 7.42 PO2 131* [...] coursing below the diaphragm, terminus outside the mjihb-np-tqjl. *There is a left subclavian approach central [...] is stable. Dictated by Rico Sawant DO (vice president and portfolio manager). Najma, Dr. AFRICA HENRIQUEZ M.D. have [...] below the diaphragm, the segments of the kkztz-gm-lvyk. *There is a left subclavian approach central [...] is stable. Dictated by Phan Brothers MD (vice president and portfolio manager). Dr. SUNITA Yao have personally reviewed [...] is normal. Dictated by Rico Sawant DO (vice president and portfolio manager). I, Dr. NAOMY LAZO MD, FRCR [...] Dr. Carrion Dictated by Bety Rose MD (vice president and portfolio manager). This report was approved by Bety [...] is normal. Dictated by Rico Sawant DO (vice president and portfolio manager). I, Dr. OSWALDO CLEMONS have personally [...] Report dictated by Simone Alexander MD, PhD (vice president and portfolio manager). I, Dr. CHOCO JIN MD have [...] Report dictated by Simone Alexander MD, PhD (vice president and portfolio manager). I, Dr. NENA CLEMENTE have personally [...] the diaphragm with the terminus outside the zsvhw-wv-uvaz. *Bilateral apically oriented thoracostomy tubes are reidentified. [...] on 02/17/2021. Dictated by Rico Sawant DO (vice president and portfolio manager). I, Dr. OSWALDO CLEMONS have personally [...] mucosal disease. Dictated by Uyen Garcia MD (vice president and portfolio manager). Dr. JUNE Yao have personally reviewed [...] courses to the stomach out of the msyid-kz-xrqb. Chest wall and lower neck subcutaneous emphysema is decreased from prior study. Pneumomediastinum is decreased from prior study. Mild left basilar atelectasis is unchanged. Pleural effusion may contribute to opacity. There is no pneumothorax. The cardiomediastinal silhouette is partially obscured. Dictated by Alverto Ames MD (vice president and portfolio manager). Dr. EULA Yao have personally reviewed [...] findings above. Dictated by Rico Sawant DO (vice president and portfolio manager). Dr. EULA Yao have personally reviewed [...] the diaphragm, with its tip outside the yceik-ta-opof. Linear airspace opacities are seen in the right upper and mid lung. Findings may be related to compressive atelectasis or pulmonary contusion in the post traumatic setting. There are linear bibasilar opacities, likely representing atelectasis or aspiration in the posttraumatic/post intubated setting. There is no left pleural effusion. No pneumothorax. The cardiomediastinal silhouette is normal. Dictated by Phan Brothers MD (vice president and portfolio manager). Dr. EULA Yao have personally reviewed [...] 4:32 AM. Dictated by Arlen Abbott MD (vice president and portfolio manager). Najma, Dr. EULA GONZALEZ have personally [...] is intact. Dictated by Phan Brothers MD (vice president and portfolio manager). I, Dr. EULA GONZALEZ have personally [...] Lamberto Moore MD * Danika Guerrero Jr., AIDA - 02/21/2021 1:01 AM CDT Problem: Mechanical [...] call Noemi for changes. Sister Noemi Tyler [phone] Aunt Mainor [phone] Problem: Pain/Discomfort Goal: Patient exhibits reduced pain/discomfort [...] Mello MD - 02/20/2021 2:24 PM CDT [facility] Stroke Progress Note Jaime Tyler Age: [...] Sonia Donato - 02/20/2021 12:24 PM CDT Rn Acute followed up with pt's mother to see if she would benefit from pastoral care support. Shira, pt's mother, communicated that she needed to call her daughter and did not need pastoral care visit at this time. Rn Acute encouraged her to let her know if she would like a visit in the future. Pastoral care will continue to follow. Please have pastoral care contacted if a need/arises. Martha Scott Tanmay 02/20/2021 12:26 PM * Alverto Godoy MD - 02/20/2021 11:37 AM CDT Patient seen and examined this AM. Discussed with trauma ICU team. Previous results, notes and imaging reviewed. OK to proceed to OR today for re- exploratory laparotomy, possible closure, possible abdominal wound vac. Alverto Godoy MD 02/20/2021 * Sonali Fraga MD - 02/20/2021 6:40 AM CDT [facility] Trauma ICU Progress Note Admit: 02/15/2021 [...] [Urine:2125; Drains:1935] Date 02/19/21699 - 02/20/2165802/20/21699 - 02/21/2159 Shift 6061-4891 0532-0485 24 Hour Total 0122-4287 3556-3879 24 Hour Total INTAKE I.V.(mL/kg/hr) 558.1(0.3) 2538.7 [...] is normal. Dictated by Rico Sawant DO (vice president and portfolio manager). I, Dr. OSWALDO CLEMONS have personally [...] Report dictated by Simone Alexander MD, PhD (vice president and portfolio manager). I, Dr. CHOCO JIN MD have [...] Report dictated by Simone Alexander MD, PhD (vice president and portfolio manager). I, Dr. NENA CLEMENTE have personally [...] the diaphragm with the terminus outside the flrpy-if-dkvd. *Bilateral apically oriented thoracostomy tubes are reidentified. [...] on 02/17/2021. Dictated by Rico Sawant DO (vice president and portfolio manager). I, Dr. OSWALDO CLEMONS have personally [...] mucosal disease. Dictated by Uyen Garcia MD (vice president and portfolio manager). IDr. JUNE have personally reviewed and [...] courses to the stomach out of the zflvz-zh-vpgy. Chest wall and lower neck subcutaneous emphysema is decreased from prior study. Pneumomediastinum is decreased from prior study. Mild left basilar atelectasis is unchanged. Pleural effusion may contribute to opacity. There is no pneumothorax. The cardiomediastinal silhouette is partially obscured. Dictated by Alverto Ames MD (vice president and portfolio manager). Dr. EULA Yao have personally reviewed [...] findings above. Dictated by Rico Sawant DO (vice president and portfolio manager). Dr. EULA Yao have personally reviewed [...] the diaphragm, with its tip outside the fcgbc-by-pplq. Linear airspace opacities are seen in the right upper and mid lung. Findings may be related to compressive atelectasis or pulmonary contusion in the post traumatic setting. There are linear bibasilar opacities, likely representing atelectasis or aspiration in the posttraumatic/post intubated setting. There is no left pleural effusion. No pneumothorax. The cardiomediastinal silhouette is normal. Dictated by Phan Brothers MD (vice president and portfolio manager). Dr. EULA Yao have personally reviewed [...] 4:32 AM. Dictated by Arlen Abbott MD (vice president and portfolio manager). Najma, Dr. EULA GONZALEZ have personally [...] is intact. Dictated by Phan Brothers MD (vice president and portfolio manager). I, Dr. EULA GONZALEZ have personally [...] obtained 1cm beyondend of ETT. Dwayne Licea, DALIA * Jaime Camacho MD - 02/19/2021 7:38 AM CDT Pt s/p exploratory laparotomy for trauma, left open, due for reexploraion today. * Sonali Fraga MD - 02/19/2021 6:57 AM CDT [facility] Trauma ICU Progress Note Admit: 02/15/2021 [...] dexmedeTOMIDine, 0-1.5 mcg/kg/hr, Last Rate: 0.3 mcg/kg/hr (10/06/21 0422) fentanyl, 0-300 mcg/hr, Last Rate: 250 [...] Date 02/18/21699 - 02/19/2165802/19/21699 - 02/20/21658 Shift 3238-7730 2056-6179 24 Hour Total 1720-6366 0441-3127 24 Hour Total INTAKE I.V.(mL/kg/hr) 1339.2(0.7) 1989.3 [...] Report dictated by Simone Alexander MD, PhD (vice president and portfolio manager). I, Dr. CHOCO JIN MD have [...] Report dictated by Simone Alexander MD, PhD (vice president and portfolio manager). Najma, Dr. NENA CLEMENTE have personally reviewed [...] the diaphragm with the terminus outside the dpipc-po-lufk. *Bilateral apically oriented thoracostomy tubes are reidentified. [...] on 02/17/2021. Dictated by Rico Sawant DO (vice president and portfolio manager). Dr. OSWALDO Yao have personally reviewed [...] mucosal disease. Dictated by Uyen Garcia MD (vice president and portfolio manager). I, Dr. JUNE MADRID have personally [...] courses to the stomach out of the cbwnx-ej-xzvg. Chest wall and lower neck subcutaneous emphysema is decreased from prior study. Pneumomediastinum is decreased from prior study. Mild left basilar atelectasis is unchanged. Pleural effusion may contribute to opacity. There is no pneumothorax. The cardiomediastinal silhouette is partially obscured. Dictated by Alverto Ames MD (vice president and portfolio manager). Dr. EULA Yao have personally reviewed [...] findings above. Dictated by Rico Sawant DO (vice president and portfolio manager). Dr. EULA Yao have personally reviewed [...] the diaphragm, with its tip outside the vjrji-if-gypw. Linear airspace opacities are seen in the right upper and mid lung. Findings may be related to compressive atelectasis or pulmonary contusion in the post traumatic setting. There are linear bibasilar opacities, likely representing atelectasis or aspiration in the posttraumatic/post intubated setting. There is no left pleural effusion. No pneumothorax. The cardiomediastinal silhouette is normal. Dictated by Phan Brothers MD (vice president and portfolio manager). Dr. EULA Yao have personally reviewed [...] 4:32 AM. Dictated by Arlen Abbott MD (vice president and portfolio manager). Dr. EULA Yao have personally reviewed [...] is intact. Dictated by Phan Brothers MD (vice president and portfolio manager). Dr. EULA Yao have personally reviewed [...] Sonia Donato - 02/18/2021 2:00 PM CDT Rn Acute met with pt's aunt who was at bedside and provided empathetic support. She communicated how her and her family were still holding out for pt's full recovery and reflected on childhood memories of pt. Rn Acute needed to attend to another pt, but [...] Fraga MD - 02/18/2021 7:33 AM CDT [facility] Trauma ICU Progress Note Admit: 02/15/2021 [...] 0-300 mcg/hr, Last Rate: 150 mcg/hr (02/17/21 744) lactated ringers, , Last Rate: 125 mL/hr [...] [Urine:1145; Drains:431] Date 02/17/21699 - 02/18/2165802/18/21699 - 02/19/21 06 Shift 3783-6737 2775-5302 24 Hour Total 8758-8955 0532-8789 24 Hour Total INTAKE I.V.(mL/kg/hr) 1974(1.4) 3198.7(1.7) [...] Name 02/18/21 0004 02/17/21 0013 02/15/21 2234 WBC 16.3* 21.4* 24.3* HGB 13.1 13.5 13.8 HCT 40.9 41.8 42.1 PLTCOUNT 292 300 315 BMP Recent Labs Component Name 02/18/21 0004 02/17/212 02/15/21 2234 POTASSIUM 4.2 4.1 4.0 CO2 24 27 [...] ABG Recent Labs Component Name 02/18/21 0004 02/17/211102/15/21 2234 PH 7.40 7.46* 7.48* PO2 126* 108* [...] the diaphragm with the terminus outside the rotyx-lw-idnl. *Bilateral apically oriented thoracostomy tubes are reidentified. [...] on 02/17/2021. Dictated by Rico Sawant DO (vice president and portfolio manager). I, Dr. OSWALDO CLEMONS have personally [...] mucosal disease. Dictated by Uyen Garcia MD (vice president and portfolio manager). I, Dr. JUNE MADRID have personally [...] courses to the stomach out of the tiijn-yz-kifk. Chest wall and lower neck subcutaneous emphysema is decreased from prior study. Pneumomediastinum is decreased from prior study. Mild left basilar atelectasis is unchanged. Pleural effusion may contribute to opacity. There is no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 * (ABNORMAL) CALCIUM IONIZED WHOLE BLOOD (03/10/2021 11:51 PM CDT) Pathologist [facility] Calcium Ionized 1.20 mmol/L 03/11/2021 12:01 AM CDT [facility] pH 7.36 7.35 - 7.45 pH 03/11/2021 12:01 AM T [facility] Ionized Calcium pH Adjusted 1.18(L) 1.19 - 1.34 mmol/L 03/11/2021 12:01 AM [facility] Blood BLOOD SPECIMEN / Unknown Venipuncture / Unknown 03/10/2021 11:51 PM CDT 03/10/2021 11:57 PM CDT Fredy Felipe MD LAB - CHEMISTRY JOSE ENRIQUE VELA Performing Organization Address [facility]/ZIP Co de Phone Number [address] [address], [facility] [phone] * (ABNORMAL) BLOOD GASES ART + COOX PANEL (03/10/2021 12:48 AM CDT) pH Arterial 7.48(H) 7.35 - 7.45 pH 03/10/2021 12:53 AM [facility] pO2 Arterial 161(H) 80 - 100 mmHg 03/10/2021 12:53 AM [facility] pCO2 Arterial 25(L) 35 - 45 mmHg 12:53 AM [facility] HCO3 Arterial 19(L) 20 - 30 mmol/l 03/10/2021 12:53 AM [facility] BE Arterial -3.7(L) -2.0 - 2.0 mmol/L 03/10/2021 12:53 AM [facility] Oxyhemoglobin Arterial 96.3 % 03/10/2021 12:53 AM [facility] Dexoyhemoglobin (HHB) % 0.5 % 03/10/2021 12:53 AM [facility] Methemoglobin 1.1 0.0 - 2.0 % 03/10/2021 12:53 AM [facility] Carboxyhemoglobin 2.1(H) 0.0 - 2.0 % 2020 12:53 AM [facility] O2 Content Arterial 14.6 Interpret within clinical context mg/dL 03/10/2021 12:53 AM [facility] Hemoglobin by COOX 10.5(L) 12.0 - 17.6 g/dL 03/10/2021 12:53 AM [facility] O2 Saturation Arterial 100 90 - 100 % 03/10/2021 12:53 AM [facility] FI O2 Arterial 30.0 % 03/10/2021 12:53 AM [facility] Blood, arterial ARTERIAL BLOOD SPECIMEN / Unknown Arterial Puncture / Unknown 03/10/2021 12:48 AM CDT 03/10/2021 12:50 AM [facility] - 03/10/2021 12:53 AM [facility] Carboxyhemoglobin Normal Concentration: Non-smokers: 0-2%; Smokers: 0-9%; Toxic: >20% Fredy Felipe MD LAB - BLOOD GASES OR DERABLES [facility] [address] [place] [address], [facility] [phone] * (ABNORMAL) CALCIUM IONIZED WHOLE BLOOD (03/10/2021 12:48 AM CDT) Calcium Ionized 1.17 mmol/L 03/10/2021 12:54 AM [facility] pH 7.50(H) 7.35 - 7.45 pH 03/10/2021 12:54 AM [facility] Ionized Calcium pH Adjusted 1.22 1.19 - 1.34 mmol/L 03/10/2021 12:54 AM [facility] Blood BLOOD SPECIMEN / Unknown Venipuncture / Unknown 03/10/2021 12:48 AM CDT 03/10/2021 12:50 AM CDT Fredy Felipe MD LAB - CHEMISTRY JOSE ENRIUQE Pena Organization Address City/State/ZIP Co de Phone Number [facility] [address] [place] [address], [facility] [phone] * (ABNORMAL) DIFFERENTIAL MANUAL (03/10/2021 12:08 AM CDT) WBC (corrected for NRBC) 22.6 10? 3 /uL 03/10/2021 2:05 AM [facility] Total Cell Count 100 03/10/2021 2:05 AM [facility] Neutrophils Absolute Manual 18.53(H) 1.60 - 7.00 10? 3 /uL 03/10/2021 2:05 AM [facility] Comment:(BANDS+SEGS) x WBC = NEUT # (ANC) Lymphocyte Absolute Manual 1.36 1.10 - 3.90 10? 3 /uL 03/10/2021 2:05 AM [facility] Monocytes Absolute Manual 1.81(H) 0.26 - 1.07 10? 3 /uL 03/10/2021 2:05 AM [facility] Eosinophils Absolute Manual 0.68(H) 0.00 - 0.47 10? 3 /uL 03/10/2021 2:05 AM [facility] Basophil Absolute Manual 0.23(H) 0.00 - 0.08 10? 3 /uL 03/10/2021 2:05 AM [facility] Band % Manual 2 0 - 10 % 03/10/2021 2:05 AM [facility] Neutrophil % Manual 80(H) 35 - 70 % 03/10/2021 2:05 AM [facility] Lymphocyte % Manual 6(L) 20 - 43 % 03/10/2021 2:05 AM [facility] Monocytes % Manual 8 5 - 13 % 03/10/2021 2:05 AM [facility] Eosinophils % Manual 3 0 - 6 % 03/10/2021 2:05 AM [facility] Basophils % Manual 1 0 - 2 % 03/10/2021 2:05 AM [facility] Platelet Estimate Increased( A) Adequate 03/10/2021 2:05 AM [facility] RBC Morphology Normal 03/10/2021 2:05 AM [facility] Blood BLOOD SPECIMEN / Unknown Venipuncture / Unknown 03/10/2021 12:08 AM CDT 03/10/2021 12:23 AM CDT Fredy Felipe MD LAB - HEMATOLOGY ORD ERABLES Performing Organization Address City/State/[facility] Co de Phone Number [facility] [address] [place] [address], [facility] [phone] * (ABNORMAL) CBC W AUTO DIFFERENTIAL (03/10/2021 12:08 AM CDT) WBC 22.6(H) 3.5 - 10.5 10? 3 /uL 03/10/2021 12:33 AM [facility] RBC 3.57(L) 4.30 - 5.70 10? 6 /uL 03/10/2021 12:33 AM [facility] Hemoglobin 9.7(L) 12.0 - 17.6 g/dL 03/10/2021 12:33 AM [facility] Hematocrit 31.0(L) 35.2 - 51.7 % 03/10/2021 12:33 AM [facility] MCV 86.8 80.7 - 98.3 fL 03/10/2021 12:33 AM [facility] MCH 27.2 26.7 - 34.0 pg 03/10/2021 12:33 AM [facility] MCHC 31.3 30.8 - 35.9 g/dL 03/10/2021 12:33 AM [facility] Platelet Count 516(H) 150 - 400 10? 3 /uL 03/10/2021 12:33 AM [facility] RDW-SD 42.9 36.0 - 50.0 fL 03/10/2021 12:33 AM [facility] RDW-CV 13.8 11.2 - 14.8 % 03/10/2021 12:33 AM [facility] MPV 9.8 9.4 - 12.9 fL 03/10/2021 12:33 AM [facility] nRBC Absolute 0.00 0 10? 3 /uL 03/10/2021 12:33 AM [facility] nRBC Auto 0.0 0 /100 WBC 03/10/2021 12:33 AM [facility] Blood BLOOD SPECIMEN / Unknown Venipuncture / Unknown 03/10/2021 12:08 AM CDT 03/10/2021 12:23 AM CDT Fredy Felipe MD LAB - HEMATOLOGY ORD ERABLES [facility] [address] [place] [address], [facility] [phone] * (ABNORMAL) BASIC METABOLIC PANEL (CALCIUM TOTAL) (03/10/2021 12:08 AM T) BUN 38(H) 7 - 26 mg/dL 03/10/2021 12:46 AM [facility] Creatinine 1.65(H) 0.71 - 1.16 mg/dL 03/10/2021 12:46 AM [facility] Sodium 142 136 - 145 mmol/L 03/10/2021 12:46 AM [facility] Potassium 4.3 3.5 - 4.5 mmol/L 03/10/2021 12:46 AM [facility] Chloride 111(H) 98 - 107 mmol/L 03/10/2021 12:46 AM [facility] CO2 18(L) 22 - 29 mmol/L 03/10/2021 12:46 AM [facility] Glucose 156(H) 70 - 115 mg/dL 03/10/2021 12:46 AM [facility] Calcium 8.8 8.4 - 10.2 mg/dL 03/10/2021 12:46 AM [facility] Anion Gap 17 8 - 18 03/10/2021 12:46 AM [facility] BUN/Creatinine Ratio 23 7 - 23 03/10/2021 12:46 AM [facility] Osmolality Calculated 306(H) 270 - 300 mOsm/kg 03/10/2021 12:46 AM CDT [facility] eGFR by CKD-EPI 53(L) >=90 mL/min/1.7 3 m2 03/10/2021 12:46 AM CDT [facility] Blood BLOOD SPECIMEN / Unknown Venipuncture / Unknown 03/10/2021 12:08 AM CDT 03/10/2021 12:23 AM CDT Fredy Felipe MD LAB - CHEMISTRY JOSE ENRIQUE VELA [address] [address], [place] [phone] * PHOSPHORUS BLOOD (03/10/2021 12:08 AM CDT) Phosphorus 4.0 2.8 - 5.1 mg/dL 03/10/2021 12:46 AM CDT [facility] Blood BLOOD SPECIMEN / Unknown Venipuncture / Unknown 03/10/2021 12:08 AM CDT 03/10/2021 12:23 AM CDT Fredy Felipe MD LAB - CHEMISTRY JOSE ENRIQUE VELA Performing Organization Address [facility]/ZIP Co de Phone Number [address] [address], [place] [phone] * MAGNESIUM BLOOD (03/10/2021 12:08 AM CDT) Magnesium 2.2 1.6 - 2.6 mg/dL 03/10/2021 12:46 AM CDT [facility] Blood BLOOD SPECIMEN / Unknown Venipuncture / Unknown 03/10/2021 12:08 AM CDT 03/10/2021 12:23 AM CDT Fredy Felipe MD LAB - CHEMISTRY JOSE ENRIQUE VELA Performing Organization Address City/[facility]/ZIP Co de Phone Number [address] [address], [place] [phone] * VANCOMYCIN LEVEL RANDOM (03/09/2021 6:26 AM CDT) Vancomycin Random 19.6 Therapeutic Ranges not established for random specimens ug/mL 03/09/2021 6:56 AM CDT [facility] Blood BLOOD SPECIMEN / Unknown Venipuncture / Unknown 03/09/2021 6:26 AM CDT 03/09/2021 6:34 AM CDT Narrative [facility] - 03/09/2021 6:56 AM CDT See institution protocol. Fredy Felipe MD LAB - CHEMISTRY JOSE ENRIQUE VELA [facility] [address] [place] [address], [facility] [phone] * XR CHEST 1VW PORTABLE (03/09/2021 6:08 [...] stable. Report dictated by Cyndi Carter MD (vice president and portfolio manager). I, Dr. NENA CLEMENTE have personally reviewed and interpreted this examination/study. This report was electronically signed by NENA CLEMENTE ??on 03/09/2021 12:04 PM . Narrative 03/09/2021 12:04 PM CDT EXAMINATION: XR CHEST 1VW PORTABLE, 03/09/2021 6:08 AM HISTORY: T88.4XXA: Difficult airway for intubation, initial encounter COMPARISON: 03/08/2021 Procedure Note Nena Clemente, DO - 03/09/2021 [...] stable. Report dictated by Cyndi Carter MD (vice president and portfolio manager). I, Dr. NENA CLEMENTE have personally reviewed and interpreted this examination/study. This report was electronically signed by NENA CLEMENTE on 03/09/2021 12:04 PM . Fredy Felipe MD DIAGNOSTIC IMAGING O RDERABLES * (ABNORMAL) DIFFERENTIAL MANUAL (03/09/2021 12:18 AM [facility]) WBC (corrected for NRBC) 24.1 10? 3 /uL 03/09/2021 2:04 AM [facility] Total Cell Count 100 03/09/20 21 2:04 AM [facility] Neutrophils Absolute Manual 19.76(H) 1.60 - 7.00 10? 3 /uL 03/09/2021 2:04 AM [facility] Comment:(BANDS+SEGS) x WBC = NEUT # (ANC) Lymphocyte Absolute Manual 1.69 1.10 - 3.90 10? 3 /uL 03/09/2021 2:04 AM [facility] Monocytes Absolute Manual 1.69(H) 0.26 - 1.07 10? 3 /uL 03/09/2021 2:04 AM [facility] Eosinophils Absolute Manual 0.72(H) 0.00 - 0.47 10? 3 /uL 03/09/2021 2:04 AM [facility] Neutrophil % Manual 82(H) 35 - 70 % 03/09/2021 2:04 AM [facility] Lymphocyte % Manual 7(L) 20 - 43 % 03/09/2021 2:04 AM [facility] Monocytes % Manual 7 5 - 13 % 03/09/2021 2:04 AM [facility] Eosinophils % Manual 3 0 - 6 % 03/09/2021 2:04 AM [facility] Metamyelocyte % Manual 1(H) 0 % 03/09/2021 2:04 AM CDT [facility] Platelet Estimate Increased( A) Adequate 03/09/2021 2:04 AM [facility] RBC Morphology Normal 03/09/2021 2:04 AM [facility] Blood BLOOD SPECIMEN / Unknown Venipuncture / Unknown 03/09/2021 12:18 AM CDT 03/09/2021 12:28 AM CDT Fredy Felipe MD LAB - HEMATOLOGY ORD ERABLES Performing Organization Address City/State/[facility] Co de Phone Number [facility] [address] [place] [address], [facility] [phone] * (ABNORMAL) CBC W AUTO DIFFERENTIAL (03/09/2021 12:18 AM CDT) WBC 24.1(H) 3.5 - 10.5 10? 3 /uL 03/09/2021 12:36 AM [facility] RBC 3.61(L) 4.30 - 5.70 10? 6 /uL 03/09/2021 12:36 AM [facility] Hemoglobin 9.8(L) 12.0 - 17.6 g/dL 03/09/2021 12:36 AM [facility] Hematocrit 31.0(L) 35.2 - 51.7 % 03/09/2021 12:36 AM [facility] MCV 85.9 80.7 - 98.3 fL 03/09/2021 12:36 AM [facility] MCH 27.1 26.7 - 34.0 pg 03/09/2021 12:36 AM [facility] MCHC 31.6 30.8 - 35.9 g/dL 03/09/2021 12:36 AM [facility] Platelet Count 541(H) 150 - 400 10? 3 /uL 03/09/2021 12:36 AM [facility] RDW-SD 43.3 36.0 - 50.0 fL 03/09/2021 12:36 AM [facility] RDW-CV 13.9 11.2 - 14.8 % 03/09/2021 12:36 AM [facility] MPV 9.5 9.4 - 12.9 fL 03/09/2021 12:36 AM [facility] nRBC Absolute 0.00 0 10? 3 /uL 03/09/2021 12:36 AM [facility] nRBC Auto 0.0 0 /100 WBC 03/09/2021 12:36 AM [facility] Blood BLOOD SPECIMEN / Unknown Venipuncture / Unknown 03/09/2021 12:18 AM CDT 03/09/2021 12:28 AM CDT Fredy Felipe MD LAB - HEMATOLOGY ORD ERABLES [facility] [address] [place] [address], [facility] [phone] * (ABNORMAL) BASIC METABOLIC PANEL (CALCIUM TOTAL) (03/09/2021 12:18 AM CDT) BUN 34(H) 7 - 26 mg/dL 03/09/2021 12:53 AM [facility] Creatinine 1.67(H) 0.71 - 1.16 mg/dL 03/09/2021 12:53 AM [facility] Sodium 145 136 - 145 mmol/L 03/09/2021 12:53 AM [facility] Potassium 4.4 3.5 - 4.5 mmol/L 03/09/2021 12:53 AM [facility] Chloride 114(H) 98 - 107 mmol/L 03/09/2021 12:53 AM [facility] CO2 18(L) 22 - 29 mmol/L 03/09/2021 12:53 AM [facility] Glucose 146(H) 70 - 115 mg/dL 03/09/2021 12:53 AM [facility] Calcium 9.0 8.4 - 10.2 mg/dL 03/09/2021 12:53 AM [facility] Anion Gap 17 8 - 18 03/09/2021 12:53 AM [facility] BUN/Creatinine Ratio 20 7 - 23 03/09/2021 12:53 AM [facility] Osmolality Calculated 310(H) 270 - 300 mOsm/kg 03/09/2021 12:53 AM [facility] eGFR by CKD-EPI 52(L) >=90 mL/min/1.7 3 m2 03/09/2021 12:53 AM [facility] Blood BLOOD SPECIMEN / Unknown Venipuncture / Unknown 03/09/2021 12:18 AM CDT 03/09/2021 12:28 AM T Fredy Felipe MD LAB - CHEMISTRY JOSE ENRIQUE VELA [facility] Organization Address City/State/ZIP Co de Phone Number [facility] [address] [place] [address], [facility] [phone] * (ABNORMAL) BLOOD GASES ART + COOX PANEL (03/09/2021 12:18 AM T) pH Arterial 7.47(H) 7.35 - 7.45 pH 03/09/2021 12:32 AM [facility] pO2 Arterial 94 80 - 100 mmHg 03/09/2021 12:32 AM [facility] pCO2 Arterial 27(L) 35 - 45 mmHg 12:32 AM [facility] HCO3 Arterial 20 20 - 30 mmol/l 03/09/2021 12:32 AM [facility] BE Arterial -2.9(L) -2.0 - 2.0 mmol/L 03/09/2021 12:32 AM [facility] Oxyhemoglobin Arterial 95.9 % 03/09/2021 12:32 AM [facility] Dexoyhemoglobin (HHB) % 1.0 % 03/09/2021 12:32 AM [facility] Methemoglobin 1.0 0.0 - 2.0 % 03/09/2021 12:32 AM [facility] Carboxyhemoglobin 2.2(H) 0.0 - 2.0 % 2020 12:32 AM [facility] O2 Content Arterial 15.1 Interpret within clinical context mg/dL 03/09/2021 12:32 AM [facility] Hemoglobin by COOX 11.1(L) 12.0 - 17.6 g/dL 03/09/2021 12:32 AM CDT [facility] O2 Saturation Arterial 99 90 - 100 % 03/09/2021 12:32 AM CDT [facility] FI O2 Arterial 21.0 % 03/09/2021 12:32 AM CDT [facility] Blood, arterial ARTERIAL BLOOD SPECIMEN / Unknown Arterial Puncture / Unknown 03/09/2021 12:18 AM CDT 03/09/2021 12:25 AM CDT Narrative [facility] - 03/09/2021 12:32 AM CDT Carboxyhemoglobin Normal Concentration: Non-smokers: 0-2%; Smokers: 0-9%; Toxic: >20% Fredy Felipe MD LAB - BLOOD GASES OR DERABLES [address] [address], [facility] [phone] * PHOSPHORUS BLOOD (03/09/2021 12:18 AM CDT) Phosphorus 3.7 2.8 - 5.1 mg/dL 03/09/2021 12:53 AM CDT [facility] Blood BLOOD SPECIMEN / Unknown Venipuncture / Unknown 03/09/2021 12:18 AM CDT 03/09/2021 12:28 AM CDT Fredy Felipe MD LAB - CHEMISTRY ORDE RABLES [address] [address], [facility] [phone] * MAGNESIUM BLOOD (03/09/2021 12:18 AM CDT) Magnesium 2.3 1.6 - 2.6 mg/dL 03/09/2021 12:53 AM CDT [facility] Blood BLOOD SPECIMEN / Unknown Venipuncture / Unknown 03/09/2021 12:18 AM CDT 03/09/2021 12:28 AM CDT Fredy Felipe MD LAB - CHEMISTRY JOSE ENRIQUE VELA Performing Organization Address City/[facility]/ZIP Co de Phone Number [address] [address], [place] [phone] * (ABNORMAL) CALCIUM IONIZED WHOLE BLOOD (03/09/2021 12:18 AM CDT) Calcium Ionized 1.17 mmol/L 03/09/2021 12:31 AM CDT [facility] pH 7.47(H) 7.35 - 7.45 pH 03/09/2021 12:31 AM CDT [facility] Ionized Calcium pH Adjusted 1.20 1.19 - 1.34 mmol/L 03/09/2021 12:31 AM CDT [facility] Blood BLOOD SPECIMEN / Unknown Venipuncture / Unknown 03/09/2021 12:18 AM CDT 03/09/2021 12:25 AM CDT Fredy Felipe MD LAB - CHEMISTRY JOSE ENRIQUE VELA Performing Organization Address [facility]/ZIP Co de Phone Number [address] [address], [place] [phone] * VANCOMYCIN LEVEL RANDOM (03/08/2021 5:30 PM CDT) Pathologist [facility] Vancomycin Random 32.6 Therapeutic Ranges not established for random specimens ug/mL 03/08/2021 5:57 PM CDT [facility] Blood BLOOD SPECIMEN / Unknown Venipuncture / Unknown 03/08/2021 5:30 PM CDT 03/08/2021 5:36 PM CDT Narrative [facility] - 03/08/2021 5:57 PM CDT See institution protocol. Fredy Fleipe MD LAB - CHEMISTRY JOSE ENRIQUE VELA Performing Organization Address City/[facility]/ZIP Co de Phone Number [address] [address], [place] [phone] * XR CHEST 1VW PORTABLE (03/08/2021 5:50 [...] is stable. Dictated by Phan Brothers MD (vice president and portfolio manager). Dr. NENA Yao have personally reviewed [...] is stable. Dictated by Phan Brothers MD (vice president and portfolio manager). Dr. NENA Yao have personally reviewed and interpreted this examination/study. This report was electronically signed by NENA CLEMENTE on 03/09/2021 11:30 AM . Fredy Felipe MD DIAGNOSTIC IMAGING O RDERABLES * (ABNORMAL) DIFFERENTIAL MANUAL (03/07/2021 11:57 PM CDT) WBC (corrected for NRBC) 22.8 10? 3 /uL 03/08/2021 2:26 AM CDT [facility] Total Cell Count 100 03/08/2021 2:26 AM CDT [facility] Neutrophils Absolute Manual 18.24(H) 1.60 - 7.00 10? 3 /uL 03/08/2021 2:26 AM [facility] Comment:(BANDS+SEGS) x WBC = NEUT # (ANC) Lymphocyte Absolute Manual 1.60 1.10 - 3.90 10? 3 /uL 03/08/2021 2:26 AM [facility] Monocytes Absolute Manual 1.60(H) 0.26 - 1.07 10? 3 /uL 03/08/2021 2:26 AM [facility] Eosinophils Absolute Manual 0.68(H) 0.00 - 0.47 10? 3 /uL 03/08/2021 2:26 AM [facility] Basophil Absolute Manual 0.23(H) 0.00 - 0.08 10? 3 /uL 03/08/2021 2:26 AM [facility] Neutrophil % Manual 80(H) 35 - 70 % 03/08/2021 2:26 AM [facility] Lymphocyte % Manual 7(L) 20 - 43 % 03/08/2021 2:26 AM [facility] Monocytes % Manual 7 5 - 13 % 03/08/2021 2:26 AM [facility] Eosinophils % Manual 3 0 - 6 % 03/08/2021 2:26 AM [facility] Basophils % Manual 1 0 - 2 % 03/08/2021 2:26 AM [facility] Atypical Lymphocyte % Manual 2(H) 0 % 03/08/2021 2:26 AM [facility] Platelet Estimate Adequate Adequate 03/08/2021 2:26 AM [facility] RBC Morphology Normal 03/08/2021 2:26 AM [facility] Blood BLOOD SPECIMEN / Unknown Venipuncture / Unknown 03/07/2021 11:57 PM CDT 03/08/2021 12:23 AM [facility] Fredy Felipe MD LAB - HEMATOLOGY ORD ERABLES [facility] [address] [place] [address], [facility] [phone] * (ABNORMAL) VANCOMYCIN LEVEL TROUGH (03/07/2021 11:57 PM CDT) Vancomycin Trough 22.7(H) 10.0 - 20.0 ug/mL 03/08/2021 12:47 AM [facility] Blood BLOOD SPECIMEN / Unknown Venipuncture / Unknown 03/07/2021 11:57 PM CDT 03/08/2021 12:23 AM CDT [facility] - 03/08/2021 12:47 AM CDT See institution protocol. Fredy Felipe MD LAB - CHEMISTRY [facility] Organization Address City/State/ZIP Co de Phone Number [facility] [address] [place] [id number], [facility] [phone] * (ABNORMAL) CBC W AUTO DIFFERENTIAL (03/07/2021 11:57 PM CDT) WBC 22.8(H) 3.5 - 10.5 10? 3 /uL 03/08/2021 12:29 AM [facility] RBC 3.55(L) 4.30 - 5.70 10? 6 /uL 03/08/2021 12:29 AM [facility] Hemoglobin 9.7(L) 12.0 - 17.6 g/dL 03/08/2021 12:29 AM [facility] Hematocrit 30.4(L) 35.2 - 51.7 % 03/08/2021 12:29 AM [facility] MCV 85.6 80.7 - 98.3 fL 03/08/2021 12:29 AM [facility] MCH 27.3 26.7 - 34.0 pg 03/08/2021 12:29 AM [facility] MCHC 31.9 30.8 - 35.9 g/dL 03/08/2021 12:29 AM [facility] Platelet Count 535(H) 150 - 400 10? 3 /uL 03/08/2021 12:29 AM [facility] RDW-SD 43.0 36.0 - 50.0 fL 03/08/2021 12:29 AM [facility] RDW-CV 13.6 11.2 - 14.8 % 03/08/2021 12:29 AM [facility] MPV 9.4 9.4 - 12.9 fL 03/08/2021 12:29 AM [facility] nRBC Absolute 0.00 0 10? 3 /uL 03/08/2021 12:29 AM [facility] nRBC Auto 0.0 0 /100 WBC 03/08/2021 12:29 AM [facility] Blood BLOOD SPECIMEN / Unknown Venipuncture / Unknown 03/07/2021 11:57 PM CDT 03/08/2021 12:23 AM T Fredy Felipe MD LAB - HEMATOLOGY ORD ERABLES [facility] [address] [place] [address], [facility] [phone] * (ABNORMAL) BASIC METABOLIC PANEL (CALCIUM TOTAL) (03/07/2021 11:57 PM CDT) BUN 35(H) 7 - 26 mg/dL 03/08/2021 12:49 AM [facility] Creatinine 1.60(H) 0.71 - 1.16 mg/dL 03/08/2021 12:49 AM [facility] Sodium 144 136 - 145 mmol/L 03/08/2021 12:49 AM [facility] Potassium 4.0 3.5 - 4.5 mmol/L 03/08/2021 12:49 AM [facility] Chloride 113(H) 98 - 107 mmol/L 03/08/2021 12:49 AM [facility] CO2 20(L) 22 - 29 mmol/L 03/08/2021 12:49 AM [facility] Glucose 132(H) 70 - 115 mg/dL 03/08/2021 12:49 AM [facility] Calcium 9.1 8.4 - 10.2 mg/dL 03/08/2021 12:49 AM [facility] Anion Gap 15 8 - 18 03/08/2021 12:49 AM [facility] BUN/Creatinine Ratio 03/08/2021 12:49 AM [facility] Osmolality Calculated 308(H) 270 - 300 mOsm/kg 03/08/2021 12:49 AM [facility] eGFR by CKD-EPI 55(L) >=90 mL/min/1.7 3 m2 03/08/2021 12:49 AM [facility] Blood BLOOD SPECIMEN / Unknown Venipuncture / Unknown 03/07/2021 11:57 PM CDT 03/08/2021 12:23 AM T Fredy Felipe MD LAB - CHEMISTRY JOSE EN[facility]A [facility] Organization Address City/State/ZIP Co de Phone Number [facility] [address] [place] [address], [facility] [phone] * (ABNORMAL) BLOOD GASES ART + COOX PANEL (03/07/2021 11:57 PM T) pH Arterial 7.50(H) 7.35 - 7.45 pH 03/08/2021 12:17 AM [facility] pO2 Arterial 183(H) 80 - 100 mmHg 03/08/2021 12:17 AM [facility] pCO2 Arterial 25(L) 35 - 45 mmHg 12:17 AM [facility] HCO3 Arterial 20 20 - 30 mmol/l 03/08/2021 12:17 AM [facility] BE Arterial -2.6(L) -2.0 - 2.0 mmol/L 03/08/2021 12:17 AM [facility] Oxyhemoglobin Arterial 96.5 % 03/08/2021 12:17 AM [facility] Dexoyhemoglobin (HHB) % 0.0 % 03/08/2021 12:17 AM [facility] Methemoglobin 1.1 0.0 - 2.0 % 03/08/2021 12:17 AM [facility] Carboxyhemoglobin 2.4(H) 0.0 - 2.0 % 2020 12:17 AM [facility] O2 Content Arterial 14.5 Interpret within clinical context mg/dL 03/08/2021 12:17 AM CDT [facility] Hemoglobin by COOX 10.4(L) 12.0 - 17.6 g/dL 03/08/2021 12:17 AM T [facility] O2 Saturation Arterial 100 90 - 100 % 03/08/2021 12:17 AM T [facility] FI O2 Arterial 21.0 % 03/08/2021 12:17 AM T [facility] Blood, arterial ARTERIAL BLOOD SPECIMEN / Unknown Arterial Puncture / Unknown 03/07/2021 11:57 PM CDT 03/08/2021 12:11 AM CDT Narrative [facility] - 03/08/2021 12:17 AM CDT Carboxyhemoglobin Normal Concentration: Non-smokers: 0-2%; Smokers: 0-9%; Toxic: >20% Fredy Felipe MD LAB - BLOOD GASES OR DERABLES Performing Organization Address [facility] Co de Phone Number [address] [address] [phone] * (ABNORMAL) PT-INR [facility] (03/07/2021 11:57 PM CDT) PT 16.5(H) 12.1 - 14.8 Seconds 03/08/2021 12:37 AM T [facility] INR 1.4 See Comment 03/08/2021 12:37 AM [facility] Comment:The suggested therap eutic range for standard coumadin (warfarin) therapy is an INR of 2.0-3.0. For high-risk patients (Mechanical Mitral Valve Prosthesis, etc.), the suggested prophylactic therapeutic range is an INR of 2.5-3.5. Blood BLOOD SPECIMEN / Unknown Venipuncture / Unknown 03/07/2021 11:57 PM CDT 03/08/2021 12:20 AM CDT Fredy Felipe MD LAB - COAGULATION OR DERABLES Performing Organization Address City/[facility]/ZIP Co de Phone Number [address] [address], [facility] [phone] * PHOSPHORUS BLOOD (03/07/2021 11:57 PM CDT) Phosphorus 3.0 2.8 - 5.1 mg/dL 03/08/2021 12:50 AM CDT [facility] Blood BLOOD SPECIMEN / Unknown Venipuncture / Unknown 03/07/2021 11:57 PM CDT 03/08/2021 12:23 AM CDT Fredy Felipe MD LAB - CHEMISTRY JOSE ENRIQUE VELA [address] [address], [facility] [phone] * MAGNESIUM BLOOD (03/07/2021 11:57 PM CDT) Magnesium 2.1 1.6 - 2.6 mg/dL 03/08/2021 12:50 AM CDT [facility] Blood BLOOD SPECIMEN / Unknown Venipuncture / Unknown 03/07/2021 11:57 PM CDT 03/08/2021 12:23 AM CDT Fredy Felipe MD LAB - CHEMISTRY JOSE ENRIQUE VELA [address] [address], [facility] [phone] * (ABNORMAL) CALCIUM IONIZED WHOLE BLOOD (03/07/2021 11:57 PM CDT) Calcium Ionized 1.15 mmol/L 03/08/2021 12:17 AM CDT [facility] pH 7.49(H) 7.35 - 7.45 pH 03/08/2021 12:17 AM CDT [facility] Ionized Calcium pH Adjusted 1.19 1.19 - 1.34 mmol/L 03/08/2021 12:17 AM CDT [facility] Blood BLOOD SPECIMEN / Unknown Venipuncture / Unknown 03/07/2021 11:57 PM CDT 03/08/2021 12:11 AM CDT Fredy Felipe MD LAB - CHEMISTRY JOSE ENRIQUE VELA [facility] Organization Address City/State/ZIP Co de Phone Number [place] [address] [place] [address], [facility] [phone] * XR CHEST 1VW PORTABLE (03/07/2021 4:51 AM CDT) Anatomical Region Laterality Modality Chest Radiographic Sera ging 03/07/2021 10:2 2 AM CDT Impressions 03/07/2021 2:51 PM CDT IMPRESSION: 1.Mild right midlung and lower lung atelectasis. Report drafted by Keo Hernandez M.D. (resident) Dr. NAOMY Yao MD, [facility] have personally reviewed and interpreted this examination/study. This report was electronically signed by NAOMY LAZO MD, [facility] ??on 03/07/2021 2:51 PM . Narrative 03/07/2021 [...] MD, FRCR on 03/07/2021 2:51 PM . Ferdy Felipe MD DIAGNOSTIC IMAGING O RDERABLES * (ABNORMAL) CULTURE ANAEROBE (03/07/2021 2:41 AM CDT) Culture Heavy Prevotella bivia(A) [place] 03/11/2021 9:14 AM CDT [facility]CRO[facility] Comment:Beta-lactamase posit elvira Microbiology ABDOMINAL ABSCESS / Unknown Collection / Unknown 03/07/2021 2:41 AM CDT 03/07/2021 2:45 AM CDT Dino Hudson PA-C LAB - MICROBIOLOG Y ORDERABLES Performing Organization Address [facility] Co de Phone Number [facility]CRO[facility] [address] [place] [phone] * CULTURE FUNGUS OTHER+FUNGUS SMEAR (03/07/2021 2:41 AM CDT) Culture No fungus isolated [place] 03/31/2021 9:21 AM [employer] INTEGRATOR [facility]CROBI[facility] Fungus Stain No yeast or hyphae seen 03/31/2021 9:21 AM [employer] INTEGRATOR [facility]CRO[facility] Microbiology ABDOMINAL ABSCESS / Unknown Collection / Unknown 03/07/2021 2:41 AM CDT 03/07/2021 2:45 AM CDT Dino Hudson PA-C LAB - MICROBIOLOG Y ORDERABLES Performing Organization Address [facility] Co de Phone Number [facility] [address] [place] [phone] * (ABNORMAL) CULTURE WOUND+GRAM STAIN (03/07/2021 2:41 AM CDT) Culture Heavy Staphylococcus lugdunensis(A) [place] 03/10/2021 7:16 AM CDT [facility] MICROBI[facility] Culture Heavy Klebsiella (formerly Enterobacter) aerogenes(A) [place] 03/10/2021 7:16 AM CDT [facility] Culture Heavy Staphylococcus epidermidis(A) 03/10/2021 7:16 AM CDT [facility] Gram Stain Light Polymorphonuclear cells 03/10/2021 7:16 AM T [facility] Gram Stain Light Gram-positive cocci in clusters 03/10/2021 7:16 AM CDT [facility] Gram Stain Moderate Gram-positive cocci pairs and chains 03/10/2021 7:16 AM [facility]CROBIOLOGY Microbiology ABDOMINAL ABSCESS / Unknown Collection / Unknown 03/07/2021 2:41 AM CDT 03/07/2021 2:[address] [facility] MICROBIOLOGY - 03/10/2021 7:16 AM CDT Enterobacter, [...] Hudson PA-C LAB - MICROBIOLOG Y ORDERABLES [facility] MICROBI[facility] [address] [place] [address], [facility] [phone] * (ABNORMAL) BLOOD GASES ART + COOX PANEL (03/07/2021 12:29 AM [facility]) pH Arterial 7.51(H) 7.35 - 7.45 pH 03/07/2021 12:41 AM [facility] pO2 Arterial 161(H) 80 - 100 mmHg 03/07/2021 12:41 AM [facility] pCO2 Arterial 21(L) 35 - 45 mmHg 12:41 AM [facility] HCO3 Arterial 17(L) 20 - 30 mmol/l 03/07/2021 12:41 AM [facility] BE Arterial -4.5(L) -2.0 - 2.0 mmol/L 03/07/2021 12:41 AM [facility] Oxyhemoglobin Arterial 97.0 % 03/07/2021 12:41 AM [facility] Dexoyhemoglobin (HHB) % 0.1 % 03/07/2021 12:41 AM [facility] Methemoglobin 1.1 0.0 - 2.0 % 03/07/2021 12:41 AM [facility] Carboxyhemoglobin 1.8 0.0 - 2.0 % 2020 12:41 AM [facility] O2 Content Arterial 15.6 Interpret within clinical context mg/dL 03/07/2021 12:41 AM [facility] Hemoglobin by COOX 11.2(L) 12.0 - 17.6 g/dL 03/07/2021 12:41 AM CDT [facility] O2 Saturation Arterial 100 90 - 100 % 03/07/2021 12:41 AM T [facility] FI O2 Arterial 40.0 % 03/07/2021 12:41 AM CDT [facility] Blood, arterial ARTERIAL BLOOD SPECIMEN / Unknown Arterial Puncture / Unknown 03/07/2021 12:29 AM CDT 03/07/2021 12:38 AM CDT Narrative [facility] - 03/07/2021 12:41 AM CDT Carboxyhemoglobin Normal Concentration: Non-smokers: 0-2%; Smokers: 0-9%; Toxic: >20% Fredy Felipe MD LAB - BLOOD GASES OR DERABLES Performing Organization Address City/[facility]/ZIP Co de Phone Number [address] [address], [facility] [phone] * (ABNORMAL) CALCIUM IONIZED WHOLE BLOOD (03/07/2021 12:29 AM CDT) Calcium Ionized 1.20 mmol/L 03/07/2021 12:41 AM T [facility] pH 7.51(H) 7.35 - 7.45 pH 03/07/2021 12:41 AM T [facility] Ionized Calcium pH Adjusted 1.26 1.19 - 1.34 mmol/L 03/07/2021 12:41 AM T [facility] Blood BLOOD SPECIMEN / Unknown Venipuncture / Unknown 03/07/2021 12:29 AM CDT 03/07/2021 12:38 AM CDT Fredy Felipe MD LAB - CHEMISTRY ORDE RABLES Performing Organization Address [facility]/ZIP Co de Phone Number [address] [address], [place] [phone] * (ABNORMAL) HEPATIC FUNCTION PANEL (03/06/2021 11:52 PM CDT) Protein Total 7.4 6.0 - 8.3 g/dL 021 5:57 AM [facility] Albumin 1.7(L) 3.4 - 5.0 g/dL 03/07/2021 5:57 AM [facility] Bilirubin Total 0.9 0.2 - 1.2 mg/dL 02/15 5:57 AM [facility] Bilirubin Conjugated 0.7(H) 0.1 - 0.5 mg/dL 03/07/2021 5:57 AM [facility] Bilirubin Unconjugated 0.2 Unconjugated Bilirubin is a calculated value: Reference ranges have not been established. mg/dL 03/07/2021 5:57 AM [facility] Alkaline Phosphatase 302(H) 40 - 150 U/L 03/07/2021 5:57 AM [facility] ALT 80(H) 5 - 55 U/L 03/07/2021 5:57 AM [facility] AST 86(H) 5 - 34 U/L 03/07/2021 5:57 AM [facility] Albumin/Globulin Ratio 0.3(L) 1.1 - 2.3 03/07/2021 5:57 AM [facility] Blood BLOOD SPECIMEN / Unknown Venipuncture / Unknown 03/06/2021 11:52 PM CDT 03/06/2021 11:56 PM CDT Fredy Felipe MD LAB - CHEMISTRY JOSE ENRIQUE VELA [facility] Organization Address City/[facility] Co de Phone Number [facility] [address] [place] [address], [facility] [phone] * (ABNORMAL) DIFFERENTIAL MANUAL (03/06/2021 11:52 PM CDT) WBC (corrected for NRBC) 22.9 10? 3 /uL 03/07/2021 1:27 AM [facility] Total Cell Count 100 03/07/2021 1:27 AM [facility] Neutrophils Absolute Manual 18.78(H) 1.60 - 7.00 10? 3 /uL 03/07/2021 1:27 AM [facility] Comment:(BANDS+SEGS) x WBC = NEUT # (ANC) Lymphocyte Absolute Manual 1.60 1.10 - 3.90 10? 3 /uL 03/07/2021 1:27 AM [facility] Monocytes Absolute Manual 2.06(H) 0.26 - 1.07 10? 3 /uL 03/07/2021 1:27 AM [facility] Eosinophils Absolute Manual 0.23 0.00 - 0.47 10? 3 /uL 03/07/2021 1:27 AM [facility] Basophil Absolute Manual 0.23(H) 0.00 - 0.08 10? 3 /uL 03/07/2021 1:27 AM [facility] Neutrophil % Manual 82(H) 35 - 70 % 03/07/2021 1:27 AM [facility] Lymphocyte % Manual 7(L) 20 - 43 % 03/07/2021 1:27 AM [facility] Monocytes % Manual 9 5 - 13 % 03/07/2021 1:27 AM [facility] Eosinophils % Manual 1 0 - 6 % 03/07/2021 1:27 AM [facility] Basophils % Manual 1 0 - 2 % 03/07/2021 1:27 AM [facility] Platelet Estimate Increased( A) Adequate 03/07/2021 1:27 AM [facility] RBC Morphology Normal 03/07/2021 1:27 AM [facility] Blood BLOOD SPECIMEN / Unknown Venipuncture / Unknown 03/06/2021 11:52 PM CDT 03/06/2021 11:56 PM CDT Fredy Felipe MD LAB - HEMATOLOGY ORD ERABLES [facility] [address] [place] [address], [facility] [phone] * (ABNORMAL) CBC W AUTO DIFFERENTIAL (03/06/2021 11:52 PM CDT) WBC 22.9(H) 3.5 - 10.5 10? 3 /uL 03/07/2021 12:08 AM [facility] RBC 3.88(L) 4.30 - 5.70 10? 6 /uL 03/07/2021 12:08 AM [facility] Hemoglobin 10.3(L) 12.0 - 17.6 g/dL 03/07/2021 12:08 AM [facility] Hematocrit 33.4(L) 35.2 - 51.7 % 03/07/2021 12:08 AM [facility] MCV 86.1 80.7 - 98.3 fL 03/07/2021 12:08 AM [facility] MCH 26.5(L) 26.7 - 34.0 pg 03/07/2021 12:08 AM [facility] MCHC 30.8 30.8 - 35.9 g/dL 03/07/2021 12:08 AM [facility] Platelet Count 598(H) 150 - 400 10? 3 /uL 03/07/2021 12:08 AM [facility] Comment:Checked by periphera l smear. RDW-SD 43.4 36.0 - 50.0 fL 03/07/2021 12:08 AM [facility] RDW-CV 13.8 11.2 - 14.8 % 03/07/2021 12:08 AM [facility] MPV 9.1(L) 9.4 - 12.9 fL 03/07/2021 12:08 AM [facility] nRBC Absolute 0.00 0 10? 3 /uL 03/07/2021 12:08 AM [facility] nRBC Auto 0.0 0 /100 WBC 03/07/2021 12:08 AM [facility] Immature Platelet Fraction 0.9(L) 1.1 - 6.2 % 03/07/2021 12:08 AM [facility] Blood BLOOD SPECIMEN / Unknown Venipuncture / Unknown 03/06/2021 11:52 PM CDT 03/06/2021 11:56 PM CDT Fredy Felipe MD LAB - HEMATOLOGY ORD ERABLES [facility] [address] [place] [address], [facility] [phone] * (ABNORMAL) BASIC METABOLIC PANEL (CALCIUM TOTAL) (03/06/2021 11:52 PM CDT) BUN 36(H) 7 - 26 mg/dL 03/07/2021 12:18 AM [facility] Creatinine 1.45(H) 0.71 - 1.16 mg/dL 03/07/2021 12:18 AM [facility] Sodium 141 136 - 145 mmol/L 03/07/2021 12:18 AM [facility] Potassium 4.0 3.5 - 4.5 mmol/L 03/07/2021 12:18 AM [facility] Chloride 111(H) 98 - 107 mmol/L 03/07/2021 12:18 AM [facility] CO2 17(L) 22 - 29 mmol/L 03/07/2021 12:18 AM [facility] Glucose 112 70 - 115 mg/dL 03/07/2021 12:18 AM [facility] Calcium 8.7 8.4 - 10.2 mg/dL 03/07/2021 12:18 AM [facility] Anion Gap 17 8 - 18 03/07/2021 12:18 AM [facility] BUN/Creatinine Ratio 25(H) 7 - 23 03/07/2021 12:18 AM [facility] Osmolality Calculated 301(H) 270 - 300 mOsm/kg 03/07/2021 12:18 AM [facility] eGFR by CKD-EPI 62(L) >=90 mL/min/1.7 3 m2 03/07/2021 12:18 AM [facility] Blood BLOOD SPECIMEN / Unknown Venipuncture / Unknown 03/06/2021 11:52 PM CDT 03/06/2021 11:56 PM [facility] Fredy Felipe MD LAB - CHEMISTRY JOSE ENRIQUE Pena Organization Address City/State/ZIP Co de Phone Number [facility] [address] [place] [address], [facility] [phone] * (ABNORMAL) PT-INR [facility] (03/06/2021 11:52 PM CDT) PT 15.2(H) 12.1 - 14.8 Seconds 03/07/2021 12:08 AM CDT [facility] INR 1.2 See Comment 03/07/2021 12:08 AM CDT [facility] Comment:The suggested therap eutic range for standard coumadin (warfarin) therapy is an INR of 2.0-3.0. For high-risk patients (Mechanical Mitral Valve Prosthesis, etc.), the suggested prophylactic therapeutic range is an INR of 2.5-3.5. Blood BLOOD SPECIMEN / Unknown Venipuncture / Unknown 03/06/2021 11:52 PM CDT 03/06/2021 11:56 PM CDT Fredy Felipe MD LAB - COAGULATION OR DERABLES Performing Organization Address City/[facility]/ZIP Co de Phone Number [address] [address], [facility] [phone] * PHOSPHORUS BLOOD (03/06/2021 11:52 PM CDT) Phosphorus 3.1 2.8 - 5.1 mg/dL 03/07/2021 12:18 AM CDT [facility] Blood BLOOD SPECIMEN / Unknown Venipuncture / Unknown 03/06/2021 11:52 PM CDT 03/06/2021 11:56 PM CDT Fredy Felipe MD LAB - CHEMISTRY ORDE RABLES [address] [address], [facility] [phone] * MAGNESIUM BLOOD (03/06/2021 11:52 PM CDT) Magnesium 2.3 1.6 - 2.6 mg/dL 03/07/2021 12:18 AM CDT [facility] Blood BLOOD SPECIMEN / Unknown Venipuncture / Unknown 03/06/2021 11:52 PM CDT 03/06/2021 11:56 PM CDT Fredy Felipe MD LAB - CHEMISTRY JOSE ENRIQUE VELA [facility] Organization Address City/State/ZIP Co de Phone Number [address] [address], [facility] [phone] * CT ABDOMEN PELVIS W CONTRAST (03/06/2021 [...] Fortune (resident) I, Dr. NAOMY LAZO MD, [facility] have personally reviewed and interpreted this examination/study. This report was electronically signed by NAOMY LAZO MD, CR ??on 03/07/2021 8:28 AM . Narrative 03/07/2021 [...] Ivette Fortune (resident) Dr. NAOMY Yao MD, FRCR have personally reviewedand interpreted this examination/study. This report was electronically signed by NAOMY LAZO MD, FRCR on 03/07/2021 8:28 AM . Fredy Felipe MD CT ORDERABLES * (ABNORMAL) URINALYSIS REFLEX TO MICROSCOPIC NO CULTURE (03/06/2021 5:11 PM CDT) Color UA Yellow Straw, Yellow 03/06/2021 5:45 PM CDT [facility] Clarity UA Slt Cloudy(A) Clear 03/06/2021 5:45 PM T [facility] Specific [place] UA 1.020 1.005 - 1.030 03/06/2021 5:45 PM CDT [facility] pH UA 6.0 5.0 - 8.0 pH 03/06/2021 5:45 PM T [facility] Protein UA 2+(A) Negative 03/06/2021 5:45 PM T [facility] Glucose UA Negative Negative 03/06/2021 5:45 PM CDT [facility] Ketone UA Negative Negative 03/06/2021 5:45 PM CDT [facility] Bilirubin UA Negative Negative 03/06/2021 5:45 PM T [facility] Blood UA 2+(A) Negative 03/06/2021 5:45 PM T [facility] Nitrite UA Negative Negative 03/06/2021 5:45 PM [facility] Leukocyte Esterase Trace(A) Negative 03/06/2021 5:45 PM T [facility] Urobilinogen UA Negative Negative mg/dL 03/06/2021 5:45 PM [facility] RBC UA 11-20(A) None Seen, 0-2, 3-5 /HPF 03/06/2021 5:45 PM [facility] WBC UA 21-50(A) None Seen, 0-5 /HPF 03/06/2021 5:[facility] Bacteria UA Trace(A) None /HPF 03/06/2021 5:45 PM CDT [facility] Yeast Budding UA Few(A) None /HPF 03/06/20 5:45 PM CDT [facility] Squamous Epithelial Cells UA 0-2 None Seen, 0-2, 3-5 /HPF 03/06/2021 5:45 PM CDT [facility] Mucus UA 1+ /LPF 03/06/2021 5:45 PM CDT [facility] RBC Casts UA 0-2(A) None Seen /LPF 03/06/2021 5:45 PM CDT [facility] Granular Casts UA 3-5(A) None Seen /LPF 03/06/2021 5:45 PM CDT [facility] Urine URINE SPECIMEN OBTAINED VIA [facility] / Unknown Collection / Unknown 03/06/2021 5:11 PM CDT 03/06/2021 5:19 PM CDT Narrative [facility] - 03/06/2021 5:45 PM CDT Fredy Felipe MD LAB - URINALYSIS ORD ERABLES [facility] [address] [place] [address], [facility] [phone] * XR CHEST 1VW PORTABLE (03/06/2021 4:07 [...] 25.2 10? 3 /uL 03/06/2021 2:40 AM [facility] Total Cell Count 100 03/06/2021 2:40 AM [facility] Neutrophils Absolute Manual 23.18(H) 1.60 - 7.00 10? 3 /uL 03/06/2021 2:40 AM [facility] Comment:(BANDS+SEGS) x WBC = NEUT # (ANC) Lymphocyte Absolute Manual 0.50(L) 1.10 - 3.90 10? 3 /uL 03/06/2021 2:40 AM CDT [facility] Monocytes Absolute Manual 1.01 0.26 - 1.07 10? 3 /uL 03/06/2021 2:40 AM [facility] Eosinophils Absolute Manual 0.50(H) 0.00 - 0.47 10? 3 /uL 03/06/2021 2:40 AM [facility] Neutrophil % Manual 92(H) 35 - 70 % 03/06/2021 2:40 AM [facility] Lymphocyte % Manual 2(L) 20 - 43 % 03/06/2021 2:40 AM [facility] Monocytes % Manual 4(L) 5 - 13 % 03/06/2021 2:40 AM [facility] Eosinophils % Manual 2 0 - 6 % 03/06/2021 2:40 AM [facility] Platelet Estimate Increased( A) Adequate 03/06/2021 2:40 AM [facility] Comment:Platelets are clumpe d on smear but appear increased. RBC Morphology Normal 03/06/2021 2:40 AM [facility] Blood BLOOD SPECIMEN / Unknown Venipuncture / Unknown 03/06/2021 1:01 AM CDT 03/06/2021 1:16 AM CDT Fredy Felipe MD LAB - HEMATOLOGY ORD ERABLES [facility] [address] [place] [address], [facility] [phone] * (ABNORMAL) CBC W AUTO DIFFERENTIAL (03/06/2021 1:01 AM CDT) WBC 25.2(H) 3.5 - 10.5 10? 3 /uL 03/06/2021 1:36 AM [facility] RBC 3.56(L) 4.30 - 5.70 10? 6 /uL 03/06/2021 1:36 AM [facility] Hemoglobin 9.8(L) 12.0 - 17.6 g/dL 03/06/2021 1:36 AM [facility] Hematocrit 31.4(L) 35.2 - 51.7 % 03/06/2021 1:36 AM [facility] MCV 88.2 80.7 - 98.3 fL 03/06/2021 1:36 AM [facility] MCH 27.5 26.7 - 34.0 pg 03/06/2021 1:36 AM [facility] MCHC 31.2 30.8 - 35.9 g/dL 03/06/2021 1:36 AM [facility] Platelet Count 633(H) 150 - 400 10? 3 /uL 03/06/2021 1:36 AM CDT [facility] RDW-SD 45.5 36.0 - 50.0 fL 03/06/2021 1:36 AM T [facility] RDW-CV 14.0 11.2 - 14.8 % 03/06/2021 1:36 AM CDT [facility] MPV 9.0(L) 9.4 - 12.9 fL 03/06/2021 1:36 AM T [facility] nRBC Absolute 0.00 0 10? 3 /uL 03/06/2021 1:36 AM T [facility] nRBC Auto 0.0 0 /100 WBC 03/06/2021 1:36 AM T [facility] Blood BLOOD SPECIMEN / Unknown Venipuncture / Unknown 03/06/2021 1:01 AM CDT 03/06/2021 1:16 AM CDT Fredy Felipe MD LAB - HEMATOLOGY ORD ERABLES Performing Organization Address City/[facility]/ZIP Co de Phone Number [address] [address], [place] [phone] * (ABNORMAL) TRIGLYCERIDES BLOOD (03/06/2021 12:06 AM CDT) Triglycerides 263(H) <150 mg/dL 03/06/2021 12:50 AM T [facility] Comment: ATP III Classification of Triglycerides: ?<150 mg/dL: ??Normal ? 150 - 199 mg/dL: ??Borderline High ? 200 - 400 mg/dL: ??High ?>500 mg/dL: ??Very High Blood BLOOD SPECIMEN / Unknown Venipuncture / Unknown 03/06/2021 12:06 AM CDT 03/06/2021 12:25 AM CDT Kelvin Stewart MD LAB - CHEMISTRY ORD ERABLES [address] [address], [place] [phone] * (ABNORMAL) BASIC METABOLIC PANEL (CALCIUM TOTAL) (03/06/2021 12:06 AM T) BUN 31(H) 7 - 26 mg/dL 03/06/2021 12:50 AM [facility] Creatinine 1.42(H) 0.71 - 1.16 mg/dL 03/06/2021 12:50 AM [facility] Sodium 142 136 - 145 mmol/L 03/06/2021 12:50 AM [facility] Potassium 4.0 3.5 - 4.5 mmol/L 03/06/2021 12:50 AM [facility] Chloride 111(H) 98 - 107 mmol/L 03/06/2021 12:50 AM [facility] CO2 19(L) 22 - 29 mmol/L 03/06/2021 12:50 AM [facility] Glucose 124(H) 70 - 115 mg/dL 03/06/2021 12:50 AM [facility] Calcium 8.8 8.4 - 10.2 mg/dL 03/06/2021 12:50 AM [facility] Anion Gap 16 8 - 18 03/06/2021 12:50 AM [facility] BUN/Creatinine Ratio 22 7 - 23 03/06/2021 12:50 AM [facility] Osmolality Calculated 302(H) 270 - 300 mOsm/kg 03/06/2021 12:50 AM [facility] eGFR by CKD-EPI 64(L) >=90 mL/min/1.7 3 m2 03/06/2021 12:50 AM [facility] Blood BLOOD SPECIMEN / Unknown Venipuncture / Unknown 03/06/2021 12:06 AM CDT 03/06/2021 12:25 AM [facility] Fredy Felipe MD LAB - CHEMISTRY JOSE ENRIQUE VELA [facility] Organization Address City/State/ZIP Co de Phone Number [facility] [address] [place] [address], [facility] [phone] * (ABNORMAL) BLOOD GASES ART + COOX PANEL (03/06/2021 12:06 AM [facility]) pH Arterial 7.42 7.35 - 7.45 pH 03/06/2021 12:36 AM [facility] pO2 Arterial 189(H) 80 - 100 mmHg 03/06/2021 12:36 AM [facility] pCO2 Arterial 30(L) 35 - 45 mmHg 12:36 AM [facility] HCO3 Arterial 20 20 - 30 mmol/l 03/06/2021 12:36 AM [facility] BE Arterial -4.1(L) -2.0 - 2.0 mmol/L 03/06/2021 12:36 AM [facility] Oxyhemoglobin Arterial 97.2 % 03/06/2021 12:36 AM [facility] Dexoyhemoglobin (HHB) % 0.0 % 03/06/2021 12:36 AM [facility] Methemoglobin <0.8 0.0 - 2.0 % 03/06/2021 12:36 AM [facility] Carboxyhemoglobin 2.4(H) 0.0 - 2.0 % 2020 12:36 AM [facility] O2 Content Arterial 15.1 Interpret within clinical context mg/dL 03/06/2021 12:36 AM [facility] Hemoglobin by COOX 10.7(L) 12.0 - 17.6 g/dL 03/06/2021 12:36 AM [facility] O2 Saturation Arterial 100 90 - 100 % 03/06/2021 12:36 AM [facility] FI O2 Arterial 80.0 % 03/06/2021 12:36 AM [facility] Blood, arterial ARTERIAL BLOOD SPECIMEN / Unknown Arterial Puncture / Unknown 03/06/2021 12:06 AM T 03/06/2021 12:22 AM [facility] - 03/06/2021 12:36 AM [facility] Carboxyhemoglobin Normal Concentration: Non-smokers: 0-2%; Smokers: 0-9%; Toxic: >20% Fredy Felipe MD LAB - BLOOD GASES OR DERABLES Performing Organization Address [facility]/ZIP Co de Phone Number [facility] [address] [place] [address], [facility] [phone] * (ABNORMAL) PT-INR [facility] (03/06/2021 12:06 AM CDT) PT 15.7(H) 12.1 - 14.8 Seconds 03/06/2021 12:43 AM CDT [facility] INR 1.3 See Comment 03/06/2021 12:43 AM CDT [facility] Comment:The suggested therap eutic range for standard coumadin (warfarin) therapy is an INR of 2.0-3.0. For high-risk patients (Mechanical Mitral Valve Prosthesis, etc.), the suggested prophylactic therapeutic range is an INR of 2.5-3.5. Blood BLOOD SPECIMEN / Unknown Venipuncture / Unknown 03/06/2021 12:06 AM CDT 03/06/2021 12:22 AM CDT Fredy Felipe MD LAB - COAGULATION OR DERABLES Performing Organization Address [facility]/ZIP Co de Phone Number [address] [address], [facility] [phone] * PHOSPHORUS BLOOD (03/06/2021 12:06 AM CDT) Phosphorus 3.3 2.8 - 5.1 mg/dL 03/06/2021 12:50 AM CDT [facility] Blood BLOOD SPECIMEN / Unknown Venipuncture / Unknown 03/06/2021 12:06 AM CDT 03/06/2021 12:25 AM CDT Fredy Felipe MD LAB - CHEMISTRY ORDE RABLES Performing Organization Address City/[facility]/ZIP Co de Phone Number [facility] [address] [place] [address], [facility] [phone] * MAGNESIUM BLOOD (03/06/2021 12:06 AM CDT) Magnesium 2.1 1.6 - 2.6 mg/dL 03/06/2021 12:50 AM CDT [facility] Blood BLOOD SPECIMEN / Unknown Venipuncture / Unknown 03/06/2021 12:06 AM CDT 03/06/2021 12:25 AM CDT Fredy Felipe MD LAB - CHEMISTRY JOSE ENRIQUE VELA Performing Organization Address [facility] Co de Phone Number [address] [address], [facility] [phone] * (ABNORMAL) CALCIUM IONIZED WHOLE BLOOD (03/06/2021 12:06 AM CDT) Calcium Ionized 1.12 mmol/L 03/06/2021 12:40 AM CDT [facility] pH 7.43 7.35 - 7.45 pH 03/06/2021 12:40 AM CDT [facility] Ionized Calcium pH Adjusted 1.13(L) 1.19 - 1.34 mmol/L 03/06/2021 12:40 AM CDT [facility] Blood BLOOD SPECIMEN / Unknown Venipuncture / Unknown 03/06/2021 12:06 AM CDT 03/06/2021 12:22 AM CDT Fredy Felipe MD LAB - CHEMISTRY JOSE ENRIQUE VELA Performing Organization Address [facility] de Phone Number [address] [address], [facility] [phone] * XR CHEST 1VW PORTABLE (03/05/2021 4:54 [...] drafted by Keo Hernandez M.D. (resident) IDr. [place] M.D. have personally reviewed and [...] 22.9 10? 3 /uL 03/05/2021 12:32 AM [facility] Total Cell Count 100 03/05/2021 12:32 AM [facility] Neutrophils Absolute Manual 19.47(H) 1.60 - 7.00 10? 3 /uL 03/05/2021 12:32 AM [facility] Comment:(BANDS+SEGS) x WBC = NEUT # (ANC) Lymphocyte Absolute Manual 1.15 1.10 - 3.90 10? 3 /uL 03/05/2021 12:32 AM [facility] Monocytes Absolute Manual 1.83(H) 0.26 - 1.07 10? 3 /uL 03/05/2021 12:32 AM T [facility] Eosinophils Absolute Manual 0.46 0.00 - 0.47 10? 3 /uL 03/05/2021 12:32 AM [facility] Neutrophil % Manual 85(H) 35 - 70 % 03/05/2021 12:32 AM [facility] Lymphocyte % Manual 5(L) 20 - 43 % 03/05/2021 12:32 AM [facility] Monocytes % Manual 8 5 - 13 % 03/05/2021 12:32 AM [facility] Eosinophils % Manual 2 0 - 6 % 03/05/2021 12:32 AM [facility] Platelet Estimate Increased( A) Adequate 03/05/2021 12:32 AM [facility] RBC Morphology Normal 03/05/2021 12:32 AM [facility] Blood BLOOD SPECIMEN / Unknown Venipuncture / Unknown 03/04/2021 11:48 PM CDT 03/04/2021 11:53 PM CDT Fredy Felipe MD LAB - HEMATOLOGY ORD ERABLES Performing Organization Address City/State/[facility] Co de Phone Number [facility] [address] [place] [phone], [facility] [phone] * (ABNORMAL) CBC W AUTO DIFFERENTIAL (03/04/2021 11:48 PM CDT) WBC 22.9(H) 3.5 - 10.5 10? 3 /uL 03/05/2021 12:06 AM [facility] RBC 3.89(L) 4.30 - 5.70 10? 6 /uL 03/05/2021 12:06 AM [facility] Hemoglobin 10.7(L) 12.0 - 17.6 g/dL 03/05/2021 12:06 AM [facility] Hematocrit 33.9(L) 35.2 - 51.7 % 03/05/2021 12:06 AM [facility] MCV 87.1 80.7 - 98.3 fL 03/05/2021 12:06 AM [facility] MCH 27.5 26.7 - 34.0 pg 03/05/2021 12:06 AM [facility] MCHC 31.6 30.8 - 35.9 g/dL 03/05/2021 12:06 AM [facility] Platelet Count 712(H) 150 - 400 10? 3 /uL 03/05/2021 12:06 AM [facility] RDW-SD 44.3 36.0 - 50.0 fL 03/05/2021 12:06 AM [facility] RDW-CV 14.0 11.2 - 14.8 % 03/05/2021 12:06 AM [facility] MPV 8.9(L) 9.4 - 12.9 fL 03/05/2021 12:06 AM [facility] nRBC Absolute 0.00 0 10? 3 /uL 03/05/2021 12:06 AM [facility] nRBC Auto 0.0 0 /100 WBC 03/05/2021 12:06 AM [facility] Immature Platelet Fraction 1.2 1.1 - 6.2 % 03/05/2021 12:06 AM [facility] Blood BLOOD SPECIMEN / Unknown Venipuncture / Unknown 03/04/2021 11:48 PM CDT 03/04/2021 11:53 PM CDT Fredy Felipe MD LAB - HEMATOLOGY ORD ERABLES [facility] [address] [place] [address], [facility] [phone] * (ABNORMAL) BASIC METABOLIC PANEL (CALCIUM TOTAL) (03/04/2021 11:48 PM CDT) BUN 27(H) 7 - 26 mg/dL 03/05/2021 12:16 AM [facility] Creatinine 1.27(H) 0.71 - 1.16 mg/dL 03/05/2021 12:16 AM [facility] Sodium 142 136 - 145 mmol/L 03/05/2021 12:16 AM [facility] Potassium 3.9 3.5 - 4.5 mmol/L 03/05/2021 12:16 AM [facility] Chloride 111(H) 98 - 107 mmol/L 03/05/2021 12:16 AM [facility] CO2 19(L) 22 - 29 mmol/L 03/05/2021 12:16 AM [facility] Glucose 116(H) 70 - 115 mg/dL 03/05/2021 12:16 AM [facility] Calcium 9.2 8.4 - 10.2 mg/dL 03/05/2021 12:16 AM [facility] Anion Gap 16 8 - 18 03/05/2021 12:16 AM [facility] BUN/Creatinine Ratio 21 7 - 23 03/05/2021 12:16 AM [facility] Osmolality Calculated 300 270 - 300 mOsm/kg 03/05/2021 12:16 AM [facility] eGFR by CKD-EPI 73(L) >=90 mL/min/1.7 3 m2 03/05/2021 12:16 AM [facility] Blood BLOOD SPECIMEN / Unknown Venipuncture / Unknown 03/04/2021 11:48 PM CDT 03/04/2021 11:53 PM CDT Fredy Felipe MD LAB - CHEMISTRY JOSE ENRIQUE VELA [facility] Organization Address City/State/ZIP Co de Phone Number [facility] [address] [place] [address], [facility] [phone] * (ABNORMAL) BLOOD GASES ART + COOX PANEL (03/04/2021 11:48 PM CDT) pH Arterial 7.46(H) 7.35 - 7.45 pH 03/04/2021 11:57 PM [facility] pO2 Arterial 190(H) 80 - 100 mmHg 03/04/2021 11:57 PM [facility] pCO2 Arterial 28(L) 35 - 45 mmHg 11:57 PM [facility] HCO3 Arterial 20 20 - 30 mmol/l 03/04/2021 11:57 PM [facility] BE Arterial -2.9(L) -2.0 - 2.0 mmol/L 03/04/2021 11:57 PM [facility] Oxyhemoglobin Arterial 96.4 % 03/04/2021 11:57 PM [facility] Dexoyhemoglobin (HHB) % 0.5 % 03/04/2021 11:57 PM [facility] Methemoglobin 0.8 0.0 - 2.0 % 03/04/2021 11:57 PM [facility] Carboxyhemoglobin 2.3(H) 0.0 - 2.0 % 2020 11:57 PM [facility] O2 Content Arterial 16.4 Interpret within clinical context mg/dL 03/04/2021 11:57 PM [facility] Hemoglobin by COOX 11.8(L) 12.0 - 17.6 g/dL 03/04/2021 11:57 PM [facility] O2 Saturation Arterial 100 90 - 100 % 03/04/2021 11:57 PM [facility] FI O2 Arterial 40.0 % 03/04/2021 11:57 PM [facility] Blood, arterial ARTERIAL BLOOD SPECIMEN / Unknown Arterial Puncture / Unknown 03/04/2021 11:48 PM CDT 03/04/2021 11:53 PM CDT [facility] - 03/04/2021 11:57 PM CDT Carboxyhemoglobin Normal Concentration: Non-smokers: 0-2%; Smokers: 0-9%; Toxic: >20% Fredy Felipe MD LAB - BLOOD GASES OR DERABLES Performing Organization Address City/State/[facility] Co de Phone Number [facility] [address] [place] [address], [facility] [phone] * (ABNORMAL) PT-INR [facility] (03/04/2021 11:48 PM CDT) PT 15.1(H) 12.1 - 14.8 Seconds 03/05/2021 12:12 AM [facility] INR 1.2 See Comment 03/05/2021 12:12 AM [facility] Comment:The suggested therap eutic range for standard coumadin (warfarin) therapy is an INR of 2.0-3.0. For high-risk patients (Mechanical Mitral Valve Prosthesis, etc.), the suggested prophylactic therapeutic range is an INR of 2.5-3.5. Blood BLOOD SPECIMEN / Unknown Venipuncture / Unknown 03/04/2021 11:48 PM CDT 03/04/2021 11:53 PM CDT Fredy Felipe MD LAB - COAGULATION OR DERABLES Performing Organization Address City/[facility]/ZIP Co de Phone Number [address] [address], [facility] [phone] * PHOSPHORUS BLOOD (03/04/2021 11:48 PM CDT) Phosphorus 3.2 2.8 - 5.1 mg/dL 03/05/2021 12:16 AM CDT [facility] Blood BLOOD SPECIMEN / Unknown Venipuncture / Unknown 03/04/2021 11:48 PM CDT 03/04/2021 11:53 PM CDT Fredy Felipe MD LAB - CHEMISTRY JOSE ENRIQUE VELA Performing Organization Address [facility] Co de Phone Number [address] [address], [facility] [phone] * MAGNESIUM BLOOD (03/04/2021 11:48 PM CDT) Magnesium 2.2 1.6 - 2.6 mg/dL 03/05/2021 12:16 AM CDT [facility] Blood BLOOD SPECIMEN / Unknown Venipuncture / Unknown 03/04/2021 11:48 PM CDT 03/04/2021 11:53 PM CDT Fredy Felipe MD LAB - CHEMISTRY JOSE ENRIQUE VELA Performing Organization Address City/[facility]/ZIP Co de Phone Number [address] [address], [facility] [phone] * (ABNORMAL) CALCIUM IONIZED WHOLE BLOOD (03/04/2021 11:48 PM CDT) Calcium Ionized 1.22 mmol/L 03/04/2021 11:57 PM CDT [facility] pH 7.47(H) 7.35 - 7.45 pH 03/04/2021 11:57 PM CDT [facility] Ionized Calcium pH Adjusted 1.26 1.19 - 1.34 mmol/L 03/04/2021 11:57 PM CDT [facility] Blood BLOOD SPECIMEN / Unknown Venipuncture / Unknown 03/04/2021 11:48 PM CDT 03/04/2021 11:53 PM CDT Fredy Felipe MD LAB - CHEMISTRY JOSE ENRIQUE VELA [facility] [address] [place] [address], [facility] [phone] * CULTURE MRSA (03/04/2021 12:43 PM CDT) Culture Negative for methicillin-resist ant Staphylococcus aureus (MRSA) [place] 03/05/2021 8:38 PM CDT [facility] NETWORK MICROBIOLOGY Microbiology SPECIMEN FROM NASAL FOSSAE / Unknown Collection / Unknown 03/04/2021 12:43 PM CDT 03/04/2021 12:52 PM CDT Kelvin Stewart MD LAB - MICROBIOLOGY ORDERABLES [facility] MICROBIOLOGY [address] [place] [address], [facility] [phone] * CULTURE SPUTUM+GRAM STAIN (03/04/2021 5:47 AM [...] Rare Gram-positive cocci 03/06/2021 6:42 AM CDT [facility] MICROBIOLOGY Microbiology SPUTUM / Unknown Collection / Unknown 03/04/2021 5:47 AM CDT 03/04/2021 5:50 AM CDT Fredy Felipe MD LAB - MICROBIOLOGY O RDERABLES [facility] MICROBIOLOG[facility] [address] [place] [address], [facility] [phone] * XR CHEST 1VW PORTABLE (03/04/2021 5:27 [...] is normal. Dictated by Alex Verdugo MD (vice president and portfolio manager). I, Dr. OSWALDO CLEMONS have personally [...] is normal. Dictated by Alex Verdugo MD (vice president and portfolio manager). I, Dr. OSWALDO CLEMONS have personally reviewed and interpreted this examination/study. This report was electronically signed by OSWALDO CLEMONS on 03/04/2021 4:04 PM . Fredy Felipe MD DIAGNOSTIC IMAGING O RDERABLES * (ABNORMAL) DIFFERENTIAL MANUAL (03/04/2021 1:04 AM CDT) WBC (corrected for NRBC) 20.3 10? 3 /uL 03/04/2021 1:46 AM [facility] Total Cell Count 100 03/04/2021 1:46 AM [facility] Neutrophils Absolute Manual 17.66(H) 1.60 - 7.00 10? 3 /uL 03/04/2021 1:46 AM [facility] Comment:(BANDS+SEGS) x WBC = NEUT # (ANC) Lymphocyte Absolute Manual 0.81(L) 1.10 - 3.90 10? 3 /uL 03/04/2021 1:46 AM [facility] Monocytes Absolute Manual 1.02 0.26 - 1.07 10? 3 /uL 03/04/2021 1:46 AM [facility] Eosinophils Absolute Manual 0.61(H) 0.00 - 0.47 10? 3 /uL 03/04/2021 1:46 AM [facility] Neutrophil % Manual 87(H) 35 - 70 % 03/04/2021 1:46 AM [facility] Lymphocyte % Manual 4(L) 20 - 43 % 03/04/2021 1:46 AM [facility] Monocytes % Manual 5 5 - 13 % 03/04/2021 1:46 AM [facility] Eosinophils % Manual 3 0 - 6 % 03/04/2021 1:46 AM [facility] Atypical Lymphocyte % Manual 1(H) 0 % 03/04/2021 1:46 AM [facility] Platelet Estimate Increased( A) Adequate 03/04/2021 1:46 AM [facility] Comment:Platelet clumpled on the smear but appear increased RBC Morphology Normal 03/04/2021 1:46 AM [facility] Blood BLOOD SPECIMEN / Unknown Venipuncture / Unknown 03/04/2021 1:04 AM CDT 03/04/2021 1:16 AM CDT Fredy Felipe MD LAB - HEMATOLOGY ORD ERABLES [facility] [address] [place] [address], [facility] [phone] * (ABNORMAL) CBC W AUTO DIFFERENTIAL (03/04/2021 1:04 AM CDT) WBC 20.3(H) 3.5 - 10.5 10? 3 /uL 03/04/2021 1:21 AM [facility] RBC 3.97(L) 4.30 - 5.70 10? 6 /uL 03/04/2021 1:21 AM [facility] Hemoglobin 10.7(L) 12.0 - 17.6 g/dL 03/04/2021 1:21 AM [facility] Hematocrit 33.9(L) 35.2 - 51.7 % 03/04/2021 1:21 AM [facility] MCV 85.4 80.7 - 98.3 fL 03/04/2021 1:21 AM [facility] MCH 27.0 26.7 - 34.0 pg 03/04/2021 1:21 AM [facility] MCHC 31.6 30.8 - 35.9 g/dL 03/04/2021 1:21 AM [facility] Platelet Count 665(H) 150 - 400 10? 3 /uL 03/04/2021 1:21 AM [facility] RDW-SD 43.2 36.0 - 50.0 fL 03/04/2021 1:21 AM [facility] RDW-CV 13.7 11.2 - 14.8 % 03/04/2021 1:21 AM [facility] MPV 8.8(L) 9.4 - 12.9 fL 03/04/2021 1:21 AM [facility] nRBC Absolute 0.00 0 10? 3 /uL 03/04/2021 1:21 AM [facility] nRBC Auto 0.0 0 /100 WBC 03/04/2021 1:21 AM [facility] Blood BLOOD SPECIMEN / Unknown Venipuncture / Unknown 03/04/2021 1:04 AM CDT 03/04/2021 1:16 AM CDT Fredy Felipe MD LAB - HEMATOLOGY ORD ERABLES [facility] [address] [place] [address], [facility] [phone] * (ABNORMAL) BASIC METABOLIC PANEL (CALCIUM TOTAL) (03/04/2021 1:04 AM CDT) BUN 25 7 - 26 mg/dL 03/04/2021 1:40 AM [facility] Creatinine 1.28(H) 0.71 - 1.16 mg/dL 03/04/2021 1:40 AM [facility] Sodium 141 136 - 145 mmol/L 03/04/2021 1:40 AM [facility] Potassium 3.6 3.5 - 4.5 mmol/L 03/04/2021 1:40 AM [facility] Chloride 109(H) 98 - 107 mmol/L 03/04/2021 1:40 AM [facility] CO2 19(L) 22 - 29 mmol/L 03/04/2021 1:40 AM [facility] Glucose 117(H) 70 - 115 mg/dL 03/04/2021 1:40 AM [facility] Calcium 9.2 8.4 - 10.2 mg/dL 03/04/2021 1:40 AM [facility] Anion Gap 17 8 - 18 03/04/2021 1:40 AM [facility] BUN/Creatinine Ratio 20 7 - 23 03/04/2021 1:40 AM [facility] Osmolality Calculated 297 270 - 300 mOsm/kg 03/04/2021 1:40 AM [facility] eGFR by CKD-EPI 72(L) >=90 mL/min/1.7 3 m2 03/04/2021 1:40 AM [facility] Blood BLOOD SPECIMEN / Unknown Venipuncture / Unknown 03/04/2021 1:04 AM CDT 03/04/2021 1:16 AM CDT Fredy Felipe MD LAB - CHEMISTRY JOSE ENRIQUE VELA [facility] Organization Address City/State/ZIP Co de Phone Number [facility] [address] [place] [address], [facility] [phone] * (ABNORMAL) BLOOD GASES ART + COOX PANEL (03/04/2021 1:04 AM CDT) pH Arterial 7.43 7.35 - 7.45 pH 03/04/2021 1:17 AM [facility] pO2 Arterial 154(H) 80 - 100 mmHg 03/04/2021 1:17 AM [facility] pCO2 Arterial 32(L) 35 - 45 mmHg 1:17 AM [facility] HCO3 Arterial 21 20 - 30 mmol/l 03/04/2021 1:17 AM [facility] BE Arterial -2.4(L) -2.0 - 2.0 mmol/L 03/04/2021 1:17 AM [facility] Oxyhemoglobin Arterial 97.8 % 03/04/2021 1:17 AM [facility] Dexoyhemoglobin (HHB) % 0.3 % 03/04/2021 1:17 AM [facility] Methemoglobin 0.8 0.0 - 2.0 % 03/04/2021 1:17 AM [facility] Carboxyhemoglobin 1.2 0.0 - 2.0 % 2020 1:17 AM [facility] O2 Content Arterial 15.8 Interpret within clinical context mg/dL 03/04/2021 1:17 AM [facility] Hemoglobin by COOX 11.3(L) 12.0 - 17.6 g/dL 03/04/2021 1:17 AM [facility] O2 Saturation Arterial 100 90 - 100 % 03/04/2021 1:17 AM [facility] FI O2 Arterial 40.0 % 03/04/2021 1:17 AM CDT [facility] Blood, arterial ARTERIAL BLOOD SPECIMEN / Unknown Arterial Puncture / Unknown 03/04/2021 1:04 AM CDT 03/04/2021 1:15 AM CDT Narrative [facility] - 03/04/2021 1:17 AM CDT Carboxyhemoglobin Normal Concentration: Non-smokers: 0-2%; Smokers: 0-9%; Toxic: >20% Fredy Felipe MD LAB - BLOOD GASES OR DERABLES [address] [address], [facility] [phone] * (ABNORMAL) PT-INR [facility] (03/04/2021 1:04 AM CDT) PT 15.0(H) 12.1 - 14.8 Seconds 03/04/2021 1:31 AM CDT [facility] INR 1.2 See Comment 03/04/2021 1:31 AM T [facility] Comment:The suggested therap eutic range for standard coumadin (warfarin) therapy is an INR of 2.0-3.0. For high-risk patients (Mechanical Mitral Valve Prosthesis, etc.), the suggested prophylactic therapeutic range is an INR of 2.5-3.5. Blood BLOOD SPECIMEN / Unknown Venipuncture / Unknown 03/04/2021 1:04 AM CDT 03/04/2021 1:12 AM CDT Fredy Felipe MD LAB - COAGULATION OR DERABLES [facility] [address] [place] [address], [facility] [phone] * PHOSPHORUS BLOOD (03/04/2021 1:04 AM CDT) Phosphorus 3.0 2.8 - 5.1 mg/dL 03/04/2021 1:40 AM T [facility] Blood BLOOD SPECIMEN / Unknown Venipuncture / Unknown 03/04/2021 1:04 AM CDT 03/04/2021 1:16 AM CDT Fredy Felipe MD LAB - CHEMISTRY JOSE ENRIQUE VELA [address] [address], [place] [phone] * MAGNESIUM BLOOD (03/04/2021 1:04 AM CDT) Magnesium 2.1 1.6 - 2.6 mg/dL 03/04/2021 1:40 AM CDT [facility] Blood BLOOD SPECIMEN / Unknown Venipuncture / Unknown 03/04/2021 1:04 AM CDT 03/04/2021 1:16 AM CDT Fredy Felipe MD LAB - CHEMISTRY JOSE ENRIQUE VELA Performing Organization Address [facility]/ZIP Co de Phone Number [address] [address], [place] [phone] * CALCIUM IONIZED WHOLE BLOOD (03/04/2021 1:04 AM CDT) Calcium Ionized 1.20 mmol/L 03/04/2021 1:19 AM CDT [facility] pH 7.41 7.35 - 7.45 pH 03/04/2021 1:19 AM CDT [facility] Ionized Calcium pH Adjusted 1.20 1.19 - 1.34 mmol/L 03/04/2021 1:19 AM CDT [facility] Blood BLOOD SPECIMEN / Unknown Venipuncture / Unknown 03/04/2021 1:04 AM CDT 03/04/2021 1:15 AM CDT Fredy Felipe MD LAB - CHEMISTRY JOSE ENRIQUE VELA Performing Organization Address City/[facility]/ZIP Co de Phone Number [address] [address], [place] [phone] * CULTURE BLOOD (03/03/2021 8:20 AM CDT) Culture No growth day 5 [place] 03/08/2021 2:00 PM CDT [facility] Blood PERIPHERAL BLOOD / Unknown Venipuncture / Unknown 03/03/2021 8:20 AM CDT 03/03/2021 8:46 AM CDT Fredy Felipe MD LAB - MICROBIOLOGY O [place] Performing Organization Address [facility] Co de Phone Number [facility] [address] [place] [address], [facility] [phone] * CULTURE BLOOD (03/03/2021 8:00 AM CDT) Culture No growth day 5 [place] 03/08/2021 2:00 PM CDT [facility] Blood PERIPHERAL BLOOD / Unknown Venipuncture / Unknown 03/03/2021 8:00 AM CDT 03/03/2021 8:46 AM CDT Fredy Felipe MD LAB - MICROBIOLOGY O [place] Performing Organization Address [facility] de Phone Number [facility] [address] [place] [address], [facility] [phone] * XR CHEST 1VW PORTABLE (03/03/2021 4:56 [...] DO (resident). I, Dr. NAOMY LAZO MD, [facility] have personally reviewed and interpreted this examination/study. This report was electronically signed by NAOMY LAZO MD, CR ??on 03/03/2021 3:48 PM . Narrative 03/03/2021 [...] normal. Dictated by Ivette Fortune DO (resident). IDr. NAOMY MD, [facility] have personally reviewedand interpreted this examination/study. This report was electronically signed by NAOMY LAZO MD, [facility] on 03/03/2021 3:48 PM . Fredy Felipe MD DIAGNOSTIC IMAGING O RDERABLES * (ABNORMAL) DIFFERENTIAL MANUAL (03/02/2021 11:41 PM CDT) WBC (corrected for NRBC) 20.3 10? 3 /uL 03/03/2021 12:26 AM CDT [facility] Total Cell Count 100 03/03/2021 12:26 AM CDT [facility] Neutrophils Absolute Manual 17.26(H) 1.60 - 7.00 10? 3 /uL 03/03/2021 12:26 AM CDT [facility] Comment:(BANDS+SEGS) x WBC = NEUT # (ANC) Lymphocyte Absolute Manual 1.22 1.10 - 3.90 10? 3 /uL 03/03/2021 12:26 AM [facility] Monocytes Absolute Manual 1.42(H) 0.26 - 1.07 10? 3 /uL 03/03/2021 12:26 AM [facility] Eosinophils Absolute Manual 0.41 0.00 - 0.47 10? 3 /uL 03/03/2021 12:26 AM [facility] Band % Manual 1 0 - 10 % 03/03/2021 12:26 AM [facility] Neutrophil % Manual 84(H) 35 - 70 % 03/03/2021 12:26 AM [facility] Lymphocyte % Manual 6(L) 20 - 43 % 03/03/2021 12:26 AM [facility] Monocytes % Manual 7 5 - 13 % 03/03/2021 12:26 AM [facility] Eosinophils % Manual 2 0 - 6 % 03/03/2021 12:26 AM [facility] Platelet Estimate Increased(A) Adequate 03/03/2021 12:26 AM [facility] RBC Morphology Normal 03/03/2021 12:26 AM [facility] Comment Platelet Platelet clumpled on the smear but appear increased. 03/03/2021 12:26 AM [facility] Blood BLOOD SPECIMEN / Unknown Venipuncture / Unknown 03/02/2021 11:41 PM CDT 03/02/2021 11:45 PM CDT Fredy Felipe MD LAB - HEMATOLOGY ORD ERABLES [facility] [address] [place] [address], [facility] [phone] * (ABNORMAL) TRIGLYCERIDES BLOOD (03/02/2021 11:41 PM CDT) Triglycerides 474(H) <150 mg/dL 03/03/2021 12:10 AM [facility] Comment: ATP III Classification of Triglycerides: ?<150 mg/dL: ??Normal ? 150 - 199 mg/dL: ??Borderline High ? 200 - 400 mg/dL: ??High ?>500 mg/dL: ??Very High Blood BLOOD SPECIMEN / Unknown Venipuncture / Unknown 03/02/2021 11:41 PM CDT 03/02/2021 11:45 PM CDT Kelvin Stewart MD LAB - CHEMISTRY ORD ERABLES [facility] [facility] [address] [place] [address], [facility] [phone] * (ABNORMAL) CBC W AUTO DIFFERENTIAL (03/02/2021 11:41 PM CDT) WBC 20.3(H) 3.5 - 10.5 10? 3 /uL 03/02/2021 11:50 PM T [facility] RBC 3.67(L) 4.30 - 5.70 10? 6 /uL 03/02/2021 11:50 PM [facility] Hemoglobin 10.2(L) 12.0 - 17.6 g/dL 03/02/2021 11:50 PM [facility] Hematocrit 32.0(L) 35.2 - 51.7 % 03/02/2021 11:50 PM [facility] MCV 87.2 80.7 - 98.3 fL 03/02/2021 11:50 PM T [facility] MCH 27.8 26.7 - 34.0 pg 03/02/2021 11:50 PM [facility] MCHC 31.9 30.8 - 35.9 g/dL 03/02/2021 11:50 PM [facility] Platelet Count 623(H) 150 - 400 10? 3 /uL 03/02/2021 11:50 PM [facility] RDW-SD 43.9 36.0 - 50.0 fL 03/02/2021 11:50 PM [facility] RDW-CV 13.7 11.2 - 14.8 % 03/02/2021 11:50 PM [facility] MPV 8.6(L) 9.4 - 12.9 fL 03/02/2021 11:50 PM [facility] nRBC Absolute 0.00 0 10? 3 /uL 03/02/2021 11:50 PM [facility] nRBC Auto 0.0 0 /100 WBC 03/02/2021 11:50 PM [facility] Blood BLOOD SPECIMEN / Unknown Venipuncture / Unknown 03/02/2021 11:41 PM CDT 03/02/2021 11:45 PM CDT Fredy Felipe MD LAB - HEMATOLOGY ORD ERABLES [facility] [address] [place] [phone], [facility] [phone] * (ABNORMAL) BASIC METABOLIC PANEL (CALCIUM TOTAL) (03/02/2021 11:41 PM CDT) BUN 19 7 - 26 mg/dL 03/03/2021 12:10 AM [facility] Creatinine 1.30(H) 0.71 - 1.16 mg/dL 03/03/2021 12:10 AM [facility] Sodium 142 136 - 145 mmol/L 03/03/2021 12:10 AM [facility] Potassium 3.7 3.5 - 4.5 mmol/L 03/03/2021 12:10 AM [facility] Chloride 108(H) 98 - 107 mmol/L 03/03/2021 12:10 AM [facility] CO2 21(L) 22 - 29 mmol/L 03/03/2021 12:10 AM [facility] Glucose 104 70 - 115 mg/dL 03/03/2021 12:10 AM [facility] Calcium 9.1 8.4 - 10.2 mg/dL 03/03/2021 12:10 AM [facility] Anion Gap 17 8 - 18 03/03/2021 12:10 AM [facility] BUN/Creatinine Ratio 15 7 - 23 03/03/2021 12:10 AM [facility] Osmolality Calculated 297 270 - 300 mOsm/kg 03/03/2021 12:10 AM [facility] eGFR by CKD-EPI 71(L) >=90 mL/min/1.7 3 m2 03/03/2021 12:10 AM [facility] Blood BLOOD SPECIMEN / Unknown Venipuncture / Unknown 03/02/2021 11:41 PM CDT 03/02/2021 11:45 PM CDT Fredy Felipe MD LAB - CHEMISTRY JOSE ENRIQUE VELA [facility] [address] [place] [address], [facility] [phone] * (ABNORMAL) BLOOD GASES ART + COOX PANEL (03/02/2021 11:41 PM CDT) pH Arterial 7.52(H) 7.35 - 7.45 pH 03/02/2021 11:46 PM [facility] pO2 Arterial 160(H) 80 - 100 mmHg 03/02/2021 11:46 PM [facility] pCO2 Arterial 29(L) 35 - 45 mmHg 11:46 PM [facility] HCO3 Arterial 24 20 - 30 mmol/l 03/02/2021 11:46 PM [facility] BE Arterial 1.4 -2.0 - 2.0 mmol/L 03/02/2021 11:46 PM [facility] Oxyhemoglobin Arterial 96.3 % 03/02/2021 11:46 PM [facility] Dexoyhemoglobin (HHB) % 0.1 % 03/02/2021 11:46 PM [facility] Methemoglobin 0.9 0.0 - 2.0 % 03/02/2021 11:46 PM [facility] Carboxyhemoglobin 2.7(H) 0.0 - 2.0 % 2020 11:46 PM [facility] O2 Content Arterial 15.2 Interpret within clinical context mg/dL 03/02/2021 11:46 PM [facility] Hemoglobin by COOX 11.0(L) 12.0 - 17.6 g/dL 03/02/2021 11:46 PM CDT [facility] O2 Saturation Arterial 100 90 - 100 % 03/02/2021 11:46 PM T [facility] FI O2 Arterial 40.0 % 03/02/2021 11:46 PM CDT [facility] Blood, arterial ARTERIAL BLOOD SPECIMEN / Unknown Arterial Puncture / Unknown 03/02/2021 11:41 PM CDT 03/02/2021 11:44 PM CDT Narrative [facility] - 03/02/2021 11:46 PM CDT Carboxyhemoglobin Normal Concentration: Non-smokers: 0-2%; Smokers: 0-9%; Toxic: >20% Fredy Felipe MD LAB - BLOOD GASES OR DERABLES Performing Organization Address [facility] Co de Phone Number [address] [address], [facility] [phone] * PT-INR [facility] (03/02/2021 11:41 PM CDT) PT 14.8 12.1 - 14.8 Seconds 03/03/2021 1:38 AM [facility] INR 1.2 See Comment 03/03/2021 1:38 AM [facility] Comment:The suggested therap eutic range for standard coumadin (warfarin) therapy is an INR of 2.0-3.0. For high-risk patients (Mechanical Mitral Valve Prosthesis, etc.), the suggested prophylactic therapeutic range is an INR of 2.5-3.5. Blood BLOOD SPECIMEN / Unknown Venipuncture / Unknown 03/02/2021 11:41 PM CDT 03/02/2021 11:52 PM CDT Fredy Felipe MD LAB - COAGULATION OR DERABLES Performing Organization Address [facility]/ZIP Co de Phone Number [address] [address], [place] [phone] * PHOSPHORUS BLOOD (03/02/2021 11:41 PM CDT) Phosphorus 4.0 2.8 - 5.1 mg/dL 03/03/2021 12:10 AM CDT [facility] Blood BLOOD SPECIMEN / Unknown Venipuncture / Unknown 03/02/2021 11:41 PM CDT 03/02/2021 11:45 PM CDT Fredy Felipe MD LAB - CHEMISTRY JOSE ENRIQUE VELA [address] [address], [facility] [phone] * MAGNESIUM BLOOD (03/02/2021 11:41 PM CDT) Magnesium 2.1 1.6 - 2.6 mg/dL 03/03/2021 12:10 AM CDT [facility] Blood BLOOD SPECIMEN / Unknown Venipuncture / Unknown 03/02/2021 11:41 PM CDT 03/02/2021 11:45 PM CDT Fredy Felipe MD LAB - CHEMISTRY JOSE ENRIQUE VELA [address] [address], [facility] [phone] * (ABNORMAL) CALCIUM IONIZED WHOLE BLOOD (03/02/2021 11:41 PM CDT) Pathologist [facility] Calcium Ionized 1.21 mmol/L 03/02/2021 11:47 PM CDT [facility] pH 7.49(H) 7.35 - 7.45 pH 03/02/2021 11:47 PM CDT [facility] Ionized Calcium pH Adjusted 1.26 1.19 - 1.34 mmol/L 03/02/2021 11:47 PM CDT [facility] Blood BLOOD SPECIMEN / Unknown Venipuncture / Unknown 03/02/2021 11:41 PM CDT 03/02/2021 11:44 PM CDT Fredy Felipe MD LAB - CHEMISTRY JOSE ENRIQUE VELA [facility] [address] [place] [address], [facility] [phone] * (ABNORMAL) URINALYSIS REFLEX TO MICROSCOPIC NO CULTURE (03/02/2021 6:52 PM CDT) Color UA Janis(A) Straw, Yellow 03/02/2021 7:39 PM T [facility] Clarity UA Slt Cloudy(A) Clear 03/02/2021 7:39 PM T [facility] Specific [place] UA 1.031(H) 1.005 - 1.030 03/02/2021 7:39 PM [facility] pH UA 5.0 5.0 - 8.0 pH 03/02/2021 7:39 PM [facility] Protein UA 2+(A) Negative 03/02/2021 7:39 PM [facility] Glucose UA Negative Negative 03/02/2021 7:39 PM [facility] Ketone UA Trace(A) Negative 03/02/2021 7:39 PM [facility] Bilirubin UA Negative Negative 03/02/2021 7:39 PM [facility] Blood UA 2+(A) Negative 03/02/2021 7:39 PM [facility] Nitrite UA Negative Negative 03/02/2021 7:39 PM [facility] Leukocyte Esterase Negative Negative 03/02/2021 7:39 PM [facility] Urobilinogen UA Negative Negative mg/dL 03/02/2021 7:39 PM [facility] RBC UA 21-50(A) None Seen, 0-2, 3-5 /HPF 03/02/2021 7:39 PM [facility] WBC UA 6-10(A) None Seen, 0-5 /HPF 03/02/2021 7:39 PM [facility] Bacteria UA Trace(A) None /HPF 03/02/2021 7:39 PM [facility] Squamous Epithelial Cells UA None Seen None Seen, 0-2, 3-5 /HPF 03/02/2021 7:39 PM [facility] Mucus UA 1+ /LPF 03/02/2021 7:39 PM CDT [facility] Urine URINE SPECIMEN OBTAINED VIA [facility] / Unknown Collection / Unknown 03/02/2021 6:52 PM CDT 03/02/2021 7:00 PM CDT Narrative [facility] - 03/02/2021 7:39 PM CDT Delilah Stubbs APRN-Tal TRAINING ANALYST LAB - URINALYSIS ORDERABLES [address] [address], [place] [phone] * UREA NITROGEN URINE RANDOM (03/02/2021 6:52 PM CDT) Urea Nitrogen Random Urine 1,057 Not Established mg/dL 03/02/2021 7:33 PM CDT [facility] Urine URINE SPECIMEN OBTAINED BY CLEAN CATCH PROCEDURE / Unknown Collection / Unknown 03/02/2021 6:52 PM CDT 03/02/2021 7:00 PM CDT Delilah Stubbs APRN-Tal TRAINING ANALYST LAB - URINE CHEMISTRY ORDERABLES Performing Organization Address [facility]/ZIP Co de Phone Number [address] [address], [place] [phone] * CHLORIDE URINE RANDOM (03/02/2021 6:52 PM CDT) Chloride Random Urine 45 Not Established mmol/L 03/02/2021 7:33 PM CDT [facility] Urine URINE SPECIMEN OBTAINED BY CLEAN CATCH PROCEDURE / Unknown Collection / Unknown 03/02/2021 6:52 PM CDT 03/02/2021 7:00 PM CDT Delilah Stubbs APRN-Tal TRAINING ANALYST LAB - URINE CHEMISTRY ORDERABLES [address] [address], [place] [phone] * LYTES (NA K) URINE RANDOM PANEL (03/02/2021 6:52 PM CDT) Sodium Urine 97 Not Established mmol/L 03/02/2021 7:33 PM CDT [facility] Potassium Urine 36.5 Not Established mmol/L 03/02/2021 7:33 PM CDT [facility] Urine URINE SPECIMEN OBTAINED BY CLEAN CATCH PROCEDURE / Unknown Collection / Unknown 03/02/2021 6:52 PM CDT 03/02/2021 7:00 PM CDT Delilah Stubbs APRN-Tal TRAINING ANALYST LAB - URINE CHEMISTRY ORDERABLES Performing Organization Address City/[facility]/ZIP Co de Phone Number [address] [address], [facility] [phone] * CREATININE URINE RANDOM (03/02/2021 6:52 PM CDT) Creatinine Urine 135 Not Established mg/dL 03/02/2021 7:33 PM CDT [facility] Urine URINE SPECIMEN OBTAINED BY CLEAN CATCH PROCEDURE / Unknown Collection / Unknown 03/02/2021 6:52 PM CDT 03/02/2021 7:00 PM CDT Delilah Stubbs APRN-Tal TRAINING ANALYST LAB - URINE CHEMISTRY ORDERABLES [address] [address], [facility] [phone] * (ABNORMAL) HEPATIC FUNCTION PANEL (03/02/2021 6:40 PM CDT) Protein Total 7.2 6.0 - 8.3 g/dL 7:40 PM CDT [facility] Albumin 1.8(L) 3.4 - 5.0 g/dL 03/02/2021 7:40 PM CDT [facility] Bilirubin Total 0.6 0.2 - 1.2 mg/dL 02/14 7:40 PM [facility] Bilirubin Conjugated 0.3 0.1 - 0.5 mg/dL 03/02/2021 7:40 PM [facility] Bilirubin Unconjugated 0.3 Unconjugated Bilirubin is a calculated value: Reference ranges have not been established. mg/dL 03/02/2021 7:40 PM [facility] Alkaline Phosphatase 226(H) 40 - 150 U/L 03/02/2021 7:40 PM T [facility] ALT 27 5 - 55 U/L 03/02/2021 7:40 PM [facility] AST 46(H) 5 - 34 U/L 03/02/2021 7:40 PM [facility] Albumin/Globulin Ratio 0.3(L) 1.1 - 2.3 03/02/2021 7:40 PM [facility] Blood BLOOD SPECIMEN / Unknown Venipuncture / Unknown 03/02/2021 6:40 PM CDT 03/02/2021 6:46 PM CDT Delilah JEFFERY TRAINING ANALYST LAB - CHEMISTRY ORDERABLES [facility] [address] [place] [phone], [facility] [phone] * (ABNORMAL) BASIC METABOLIC PANEL (CALCIUM TOTAL) (03/02/2021 6:40 PM CDT) BUN 20 7 - 26 mg/dL 03/02/2021 7:40 PM [facility] Creatinine 1.26(H) 0.71 - 1.16 mg/dL 03/02/2021 7:40 PM [facility] Sodium 139 136 - 145 mmol/L 03/02/2021 7:40 PM [facility] Potassium 3.8 3.5 - 4.5 mmol/L 03/02/2021 7:40 PM [facility] Chloride 105 98 - 107 mmol/L 03/02/2021 7:40 PM [facility] CO2 22 22 - 29 mmol/L 03/02/2021 7:40 PM [facility] Glucose 84 70 - 115 mg/dL 03/02/2021 7:40 PM [facility] Calcium 9.1 8.4 - 10.2 mg/dL 03/02/2021 7:40 PM [facility] Anion Gap 16 8 - 18 03/02/2021 7:40 PM [facility] BUN/Creatinine Ratio 16 7 - 23 03/02/2021 7:40 PM [facility] Osmolality Calculated 290 270 - 300 mOsm/kg 03/02/2021 7:40 PM [facility] eGFR by CKD-EPI 73(L) >=90 mL/min/1.7 3 m2 03/02/2021 7:40 PM [facility] Blood BLOOD SPECIMEN / Unknown Venipuncture / Unknown 03/02/2021 6:40 PM CDT 03/02/2021 6:46 PM CDT Delilah JEFFERY TRAINING ANALYST LAB - CHEMISTRY ORDERABLES [facility] [address] [place] [address], [facility] [phone] * (ABNORMAL) BLOOD GASES ART + COOX PANEL (03/02/2021 5:54 AM CDT) pH Arterial 7.52(H) 7.35 - 7.45 pH 03/02/2021 5:58 AM [facility] pO2 Arterial 163(H) 80 - 100 mmHg 03/02/2021 5:58 AM [facility] pCO2 Arterial 27(L) 35 - 45 mmHg 5:58 AM [facility] HCO3 Arterial 22 20 - 30 mmol/l 03/02/2021 5:58 AM [facility] BE Arterial 0.0 -2.0 - 2.0 mmol/L 03/02/2021 5:58 AM [facility] Oxyhemoglobin Arterial 96.4 % 03/02/2021 5:58 AM [facility] Dexoyhemoglobin (HHB) % 0.4 % 03/02/2021 5:58 AM CDT [facility] Methemoglobin 0.9 0.0 - 2.0 % 03/02/2021 5:58 AM [facility] Carboxyhemoglobin 2.4(H) 0.0 - 2.0 % 2020 5:58 AM T [facility] O2 Content Arterial 15.1 Interpret within clinical context mg/dL 03/02/2021 5:58 AM [facility] Hemoglobin by COOX 10.9(L) 12.0 - 17.6 g/dL 03/02/2021 5:58 AM [facility] O2 Saturation Arterial 100 90 - 100 % 03/02/2021 5:58 AM [facility] FI O2 Arterial 40.0 % 03/02/2021 5:58 AM T [facility] Blood, arterial ARTERIAL BLOOD SPECIMEN / Unknown Arterial Puncture / Unknown 03/02/2021 5:54 AM CDT 03/02/2021 5:56 AM CDT Narrative [facility] - 03/02/2021 5:58 AM CDT Carboxyhemoglobin Normal Concentration: Non-smokers: 0-2%; Smokers: 0-9%; Toxic: >20% Fredy Felipe MD LAB - BLOOD GASES OR DERABLES [facility] [address] [place] [address], [facility] [phone] * XR CHEST 1VW PORTABLE (03/02/2021 4:22 [...] but stable. Dictated by Uyen Garcia MD (vice president and portfolio manager). This report was approved ??by Uyen [...] but stable. Dictated by Uyen Garcia MD (vice president and portfolio manager). This report was approved by Uyen Garcia on 03/02/2021 11:30 AM . I, Dr. JASWINDER CARRION have personally reviewed and interpreted this examination/study. This report was electronically signed by JASWINDER CARRION on 03/02/2021 11:30 AM . Fredy Felipe MD DIAGNOSTIC IMAGING O RDERABLES * (ABNORMAL) DIFFERENTIAL MANUAL (03/01/2021 11:16 PM [facility]) WBC (corrected for NRBC) 17.9 10? 3 /uL 03/02/2021 12:17 AM [facility] Total Cell Count 100 03/02/2021 12:17 AM [facility] Neutrophils Absolute Manual 14.50(H) 1.60 - 7.00 10? 3 /uL 03/02/2021 12:17 AM [facility] Comment:(BANDS+SEGS) x WBC = NEUT # (ANC) Lymphocyte Absolute Manual 0.36(L) 1.10 - 3.90 10? 3 /uL 03/02/2021 12:17 AM [facility] Monocytes Absolute Manual 2.51(H) 0.26 - 1.07 10? 3 /uL 03/02/2021 12:17 AM [facility] Eosinophils Absolute Manual 0.36 0.00 - 0.47 10? 3 /uL 03/02/2021 12:17 AM [facility] Basophil Absolute Manual 0.18(H) 0.00 - 0.08 10? 3 /uL 03/02/2021 12:17 AM [facility] Neutrophil % Manual 81(H) 35 - 70 % 03/02/2021 12:17 AM [facility] Lymphocyte % Manual 2(L) 20 - 43 % 03/02/2021 12:17 AM [facility] Monocytes % Manual 14(H) 5 - 13 % 03/02/2021 12:17 AM [facility] Eosinophils % Manual 2 0 - 6 % 03/02/2021 12:17 AM [facility] Basophils % Manual 1 0 - 2 % 03/02/2021 12:17 AM [facility] Platelet Estimate Increased( A) Adequate 03/02/2021 12:17 AM [facility] RBC Morphology Normal 03/02/2021 12:17 AM [facility] Blood BLOOD SPECIMEN / Unknown Venipuncture / Unknown 03/01/2021 11:16 PM CDT 03/01/2021 11:21 PM CDT Fredy Felipe MD LAB - HEMATOLOGY ORD ERABLES [facility] [address] [place] [address], [place] [phone] * (ABNORMAL) HEPATIC FUNCTION PANEL (03/01/2021 11:16 PM CDT) Pathologist [facility] Protein Total 6.7 6.0 - 8.3 g/dL 11:46 PM [facility] Albumin 1.5(L) 3.4 - 5.0 g/dL 03/01/2021 11:46 PM [facility] Bilirubin Total 0.6 0.2 - 1.2 mg/dL 02/14 11:46 PM [facility] Bilirubin Conjugated 0.5 0.1 - 0.5 mg/dL 03/01/2021 11:46 PM [facility] Bilirubin Unconjugated 0.1 Unconjugated Bilirubin is a calculated value: Reference ranges have not been established. mg/dL 03/01/2021 11:46 PM [facility] Alkaline Phosphatase 270(H) 40 - 150 U/L 03/01/2021 11:46 PM [facility] ALT 32 5 - 55 U/L 03/01/2021 11:46 PM [facility] AST 58(H) 5 - 34 U/L 03/01/2021 11:46 PM [facility] Albumin/Globulin Ratio 0.3(L) 1.1 - 2.3 03/01/2021 11:46 PM [facility] Blood BLOOD SPECIMEN / Unknown Venipuncture / Unknown 03/01/2021 11:16 PM CDT 03/01/2021 11:21 PM CDT Fredy Felipe MD LAB - CHEMISTRY JOSE ENRIQUE VELA [facility] [address] [place] [address] [phone] * (ABNORMAL) CBC W AUTO DIFFERENTIAL (03/01/2021 11:16 PM CDT) WBC 17.9(H) 3.5 - 10.5 10? 3 /uL 03/01/2021 11:29 PM [facility] RBC 3.85(L) 4.30 - 5.70 10? 6 /uL 03/01/2021 11:29 PM [facility] Hemoglobin 10.6(L) 12.0 - 17.6 g/dL 03/01/2021 11:29 PM [facility] Hematocrit 33.0(L) 35.2 - 51.7 % 03/01/2021 11:29 PM [facility] MCV 85.7 80.7 - 98.3 fL 03/01/2021 11:29 PM [facility] MCH 27.5 26.7 - 34.0 pg 03/01/2021 11:29 PM [facility] MCHC 32.1 30.8 - 35.9 g/dL 03/01/2021 11:29 PM [facility] Platelet Count 615(H) 150 - 400 10? 3 /uL 03/01/2021 11:29 PM [facility] RDW-SD 42.8 36.0 - 50.0 fL 03/01/2021 11:29 PM [facility] RDW-CV 13.7 11.2 - 14.8 % 03/01/2021 11:29 PM [facility] MPV 8.7(L) 9.4 - 12.9 fL 03/01/2021 11:29 PM [facility] nRBC Absolute 0.00 0 10? 3 /uL 03/01/2021 11:29 PM [facility] nRBC Auto 0.0 0 /100 WBC 03/01/2021 11:29 PM [facility] Blood BLOOD SPECIMEN / Unknown Venipuncture / Unknown 03/01/2021 11:16 PM CDT 03/01/2021 11:21 PM T Freyd Felipe MD LAB - HEMATOLOGY TYLOR MOORE [facility] [address] [place] [address], [facility] [phone] * (ABNORMAL) BASIC METABOLIC PANEL (CALCIUM TOTAL) (03/01/2021 11:16 PM CDT) BUN 21 7 - 26 mg/dL 03/01/2021 11:46 PM [facility] Creatinine 1.35(H) 0.71 - 1.16 mg/dL 03/01/2021 11:46 PM [facility] Sodium 142 136 - 145 mmol/L 03/01/2021 11:46 PM [facility] Potassium 3.7 3.5 - 4.5 mmol/L 03/01/2021 11:46 PM [facility] Chloride 108(H) 98 - 107 mmol/L 03/01/2021 11:46 PM [facility] CO2 20(L) 22 - 29 mmol/L 03/01/2021 11:46 PM [facility] Glucose 93 70 - 115 mg/dL 03/01/2021 11:46 PM [facility] Calcium 9.0 8.4 - 10.2 mg/dL 03/01/2021 11:46 PM [facility] Anion Gap 18 8 - 18 03/01/2021 11:46 PM [facility] BUN/Creatinine Ratio 16 7 - 23 03/01/2021 11:46 PM [facility] Osmolality Calculated 297 270 - 300 mOsm/kg 03/01/2021 11:46 PM [facility] eGFR by CKD-EPI 68(L) >=90 mL/min/1.7 3 m2 03/01/2021 11:46 PM [facility] Blood BLOOD SPECIMEN / Unknown Venipuncture / Unknown 03/01/2021 11:16 PM CDT 03/01/2021 11:21 PM CDT Fredy Felipe MD LAB - CHEMISTRY JOSE ENRIQUE VELA [facility] [address] [address], [facility] [phone] * (ABNORMAL) BLOOD GASES ART + COOX PANEL (03/01/2021 11:16 PM [facility]) pH Arterial 7.58(H) 7.35 - 7.45 pH 03/01/2021 11:22 PM [facility] pO2 Arterial 164(H) 80 - 100 mmHg 03/01/2021 11:22 PM [facility] pCO2 Arterial 24(L) 35 - 45 mmHg 11:22 PM [facility] HCO3 Arterial 23 20 - 30 mmol/l 03/01/2021 11:22 PM [facility] BE Arterial 1.7 -2.0 - 2.0 mmol/L 03/01/2021 11:22 PM [facility] Oxyhemoglobin Arterial 96.4 % 03/01/2021 11:22 PM [facility] Dexoyhemoglobin (HHB) % 0.4 % 03/01/2021 11:22 PM [facility] Methemoglobin 1.3 0.0 - 2.0 % 03/01/2021 11:22 PM [facility] Carboxyhemoglobin 1.9 0.0 - 2.0 % 2020 11:22 PM [facility] O2 Content Arterial 15.8 Interpret within clinical context mg/dL 03/01/2021 11:22 PM [facility] Hemoglobin by COOX 11.4(L) 12.0 - 17.6 g/dL 03/01/2021 11:22 PM [facility] O2 Saturation Arterial 100 90 - 100 % 03/01/2021 11:22 PM [facility] FI O2 Arterial 40.0 % 03/01/2021 11:22 PM [facility] Blood, arterial ARTERIAL BLOOD SPECIMEN / Unknown Arterial Puncture / Unknown 03/01/2021 11:16 PM CDT 03/01/2021 11:20 PM [facility] - 03/01/2021 11:22 PM [facility] Carboxyhemoglobin Normal Concentration: Non-smokers: 0-2%; Smokers: 0-9%; Toxic: >20% Fredy Felipe MD LAB - BLOOD GASES OR DERABLES Performing Organization Address [facility]/ZIP Co de Phone Number [address] [address], [facility] [phone] * (ABNORMAL) PT-INR [facility] (03/01/2021 11:16 PM CDT) PT 14.9(H) 12.1 - 14.8 Seconds 03/01/2021 11:34 PM CDT [facility] INR 1.2 See Comment 03/01/2021 11:34 PM CDT [facility] Comment:The suggested therap eutic range for standard coumadin (warfarin) therapy is an INR of 2.0-3.0. For high-risk patients (Mechanical Mitral Valve Prosthesis, etc.), the suggested prophylactic therapeutic range is an INR of 2.5-3.5. Blood BLOOD SPECIMEN / Unknown Venipuncture / Unknown 03/01/2021 11:16 PM CDT 03/01/2021 11:20 PM CDT Fredy Felipe MD LAB - COAGULATION OR DERABLES Performing Organization Address [facility] Co de Phone Number [address] [address], [facility] [phone] * PHOSPHORUS BLOOD (03/01/2021 11:16 PM CDT) Phosphorus 3.7 2.8 - 5.1 mg/dL 03/01/2021 11:46 PM CDT [facility] Blood BLOOD SPECIMEN / Unknown Venipuncture / Unknown 03/01/2021 11:16 PM CDT 03/01/2021 11:21 PM CDT Fredy Felipe MD LAB - CHEMISTRY ORDNolan VELA Performing Organization Address City/[facility]/ZIP Co de Phone Number [address] [phone], [facility] [phone] * MAGNESIUM BLOOD (03/01/2021 11:16 PM CDT) Magnesium 2.1 1.6 - 2.6 mg/dL 03/01/2021 11:46 PM CDT [facility] Blood BLOOD SPECIMEN / Unknown Venipuncture / Unknown 03/01/2021 11:16 PM CDT 03/01/2021 11:21 PM CDT Fredy Felipe MD LAB - CHEMISTRY JOSE ENRIQUE VELA Performing Organization Address [facility]/ZIP Co de Phone Number [address] [address], [facility] [phone] * (ABNORMAL) CALCIUM IONIZED WHOLE BLOOD (03/01/2021 11:16 PM CDT) Calcium Ionized 1.18 mmol/L 03/01/2021 11:22 PM CDT [facility] pH 7.57(H) 7.35 - 7.45 pH 03/01/2021 11:22 PM CDT [facility] Ionized Calcium pH Adjusted 1.27 1.19 - 1.34 mmol/L 03/01/2021 11:22 PM CDT [facility] Blood BLOOD SPECIMEN / Unknown Venipuncture / Unknown 03/01/2021 11:16 PM CDT 03/01/2021 11:20 PM CDT Fredy Felipe MD LAB - CHEMISTRY JOSE ENRIQUE VELA Performing Organization Address [facility] Co de Phone Number [address] [address], [facility] [phone] * XR CHEST 1VW PORTABLE (03/01/2021 4:20 [...] Hernandez M.D. (resident) Dr. NAOMY Yao MD, KEN have personally reviewedand interpreted this examination/study. This report was electronically signed by NAOMY LAZO MD, FRCR on 03/03/2021 3:30 PM . Fredy Felipe MD DIAGNOSTIC IMAGING O RDERABLES * (ABNORMAL) DIFFERENTIAL MANUAL (03/01/2021 12:11 AM CDT) WBC (corrected for NRBC) 15.6 10? 3 /uL 03/01/2021 1:34 AM CDT [facility] Total Cell Count 100 03/01/2021 1:34 AM CDT [facility] Neutrophils Absolute Manual 12.01(H) 1.60 - 7.00 10? 3 /uL 03/01/2021 1:34 AM [facility] Comment:(BANDS+SEGS) x WBC = NEUT # (ANC) Lymphocyte Absolute Manual 1.09(L) 1.10 - 3.90 10? 3 /uL 03/01/2021 1:34 AM [facility] Monocytes Absolute Manual 1.87(H) 0.26 - 1.07 10? 3 /uL 03/01/2021 1:34 AM [facility] Eosinophils Absolute Manual 0.62(H) 0.00 - 0.47 10? 3 /uL 03/01/2021 1:34 AM [facility] Neutrophil % Manual 77(H) 35 - 70 % 03/01/2021 1:34 [facility] Lymphocyte % Manual 7(L) 20 - 43 % 03/01/2021 1:34 [facility] Monocytes % Manual 12 5 - 13 % 03/01/2021 1:34 [facility] Eosinophils % Manual 4 0 - 6 % 03/01/2021 1:34 [facility] Platelet Estimate Increased( A) Adequate 03/01/2021 1:34 [facility] RBC Morphology Normal 03/01/2021 1:34 [facility] Blood BLOOD SPECIMEN / Unknown Venipuncture / Unknown 03/01/2021 12:11 AM CDT 03/01/2021 12:18 AM CDT Fredy Felipe MD LAB - HEMATOLOGY ORD ERABLES [facility] [address] [place] [address], [facility] [phone] * (ABNORMAL) CBC W AUTO DIFFERENTIAL (03/01/2021 12:11 AM CDT) WBC 15.6(H) 3.5 - 10.5 10? 3 /uL 03/01/2021 12:42 [facility] RBC 3.88(L) 4.30 - 5.70 10? 6 /uL 03/01/2021 12:42 [facility] Hemoglobin 10.6(L) 12.0 - 17.6 g/dL 03/01/2021 12:42 [facility] Hematocrit 32.8(L) 35.2 - 51.7 % 03/01/2021 12:42 [facility] MCV 84.5 80.7 - 98.3 fL 03/01/2021 12:42 [facility] MCH 27.3 26.7 - 34.0 pg 03/01/2021 12:42 [facility] MCHC 32.3 30.8 - 35.9 g/dL 03/01/2021 12:42 [facility] Platelet Count 573(H) 150 - 400 10? 3 /uL 03/01/2021 12:42 [facility] RDW-SD 42.7 36.0 - 50.0 fL 03/01/2021 12:42 [facility] RDW-CV 13.7 11.2 - 14.8 % 03/01/2021 12:42 [facility] MPV 8.8(L) 9.4 - 12.9 fL 03/01/2021 12:42 [facility] nRBC Absolute 0.00 0 10? 3 /uL 03/01/2021 12:42 [facility] nRBC Auto 0.0 0 /100 WBC 03/01/2021 12:42 [facility] Immature Platelet Fraction 0.6(L) 1.1 - 6.2 % 03/01/2021 12:42 [facility] Blood BLOOD SPECIMEN / Unknown Venipuncture / Unknown 03/01/2021 12:11 AM CDT 03/01/2021 12:18 AM CDT Fredy Felipe MD LAB - HEMATOLOGY ORD ERABLES [facility] [address] [place] [address], [facility] [phone] * (ABNORMAL) BASIC METABOLIC PANEL (CALCIUM TOTAL) (03/01/2021 12:11 AM CDT) BUN 23 7 - 26 mg/dL 03/01/2021 12:42 [facility] Creatinine 1.21(H) 0.71 - 1.16 mg/dL 03/01/2021 12:42 [facility] Sodium 141 136 - 145 mmol/L 03/01/2021 12:42 [facility] Potassium 3.9 3.5 - 4.5 mmol/L 03/01/2021 12:42 [facility] Chloride 107 98 - 107 mmol/L 03/01/2021 12:42 [facility] CO2 21(L) 22 - 29 mmol/L 03/01/2021 12:42 [facility] Glucose 93 70 - 115 mg/dL 03/01/2021 12:42 [facility] Calcium 9.3 8.4 - 10.2 mg/dL 03/01/2021 12:42 [facility] Anion Gap 17 8 - 18 03/01/2021 12:42 [facility] BUN/Creatinine Ratio 19 7 - 23 03/01/2021 12:42 [facility] Osmolality Calculated 295 270 - 300 mOsm/kg 03/01/2021 12:42 [facility] eGFR by CKD-EPI 77(L) >=90 mL/min/1.7 3 m2 03/01/2021 12:42 [facility] Blood BLOOD SPECIMEN / Unknown Venipuncture / Unknown 03/01/2021 12:11 AM CDT 03/01/2021 12:18 AM CDT Fredy Felipe MD LAB - CHEMISTRY JOSE ENRIQUE VELA [facility] Organization Address City/State/ZIP Co de Phone Number [facility] [address] [place] [address], [facility] [phone] * (ABNORMAL) BLOOD GASES ART + COOX PANEL (03/01/2021 12:11 AM CDT) pH Arterial 7.46(H) 7.35 - 7.45 pH 03/01/2021 12:22 [facility] pO2 Arterial 144(H) 80 - 100 mmHg 03/01/2021 12:22 [facility] pCO2 Arterial 33(L) 35 - 45 mmHg 12:22 [facility] HCO3 Arterial 24 20 - 30 mmol/l 03/01/2021 12:22 [facility] BE Arterial 0.1 -2.0 - 2.0 mmol/L 03/01/2021 12:22 [facility] Oxyhemoglobin Arterial 97.3 % 03/01/2021 12:22 [facility] Dexoyhemoglobin (HHB) % 0.2 % 03/01/2021 12:22 [facility] Methemoglobin <0.8 0.0 - 2.0 % 03/01/2021 12:22 [facility] Carboxyhemoglobin 1.8 0.0 - 2.0 % 2020 12:22 [facility] O2 Content Arterial 15.9 Interpret within clinical context mg/dL 03/01/2021 12:22 [facility] Hemoglobin by COOX 11.4(L) 12.0 - 17.6 g/dL 03/01/2021 12:22 [facility] O2 Saturation Arterial 100 90 - 100 % 03/01/2021 12:22 [facility] FI O2 Arterial 40.0 % 03/01/2021 12:22 [facility] Blood, arterial ARTERIAL BLOOD SPECIMEN / Unknown Arterial Puncture / Unknown 03/01/2021 12:11 AM CDT 03/01/2021 12:16 AM [facility] - 03/01/2021 12:22 AM [facility] Carboxyhemoglobin Normal Concentration: Non-smokers: 0-2%; Smokers: 0-9%; Toxic: >20% Fredy Felipe MD LAB - BLOOD GASES OR DERABLES [facility] [address] [place] [address], [facility] [phone] * PT-INR [facility] (03/01/2021 12:11 AM CDT) PT 14.0 12.1 - 14.8 Seconds 03/01/2021 12:35 AM CDT [facility] INR 1.1 See Comment 03/01/2021 12:35 AM CDT [facility] Comment:The suggested therap eutic range for standard coumadin (warfarin) therapy is an INR of 2.0-3.0. For high-risk patients (Mechanical Mitral Valve Prosthesis, etc.), the suggested prophylactic therapeutic range is an INR of 2.5-3.5. Blood BLOOD SPECIMEN / Unknown Venipuncture / Unknown 03/01/2021 12:11 AM CDT 03/01/2021 12:16 AM CDT Fredy Felipe MD LAB - COAGULATION OR DERABLES Performing Organization Address City/[facility]/ZIP Co de Phone Number [address] [address], [facility] [phone] * PHOSPHORUS BLOOD (03/01/2021 12:11 AM CDT) Phosphorus 3.9 2.8 - 5.1 mg/dL 03/01/2021 12:42 AM CDT [facility] Blood BLOOD SPECIMEN / Unknown Venipuncture / Unknown 03/01/2021 12:11 AM CDT 03/01/2021 12:18 AM CDT Fredy Felipe MD LAB - CHEMISTRY ORDE RABLES [address] [address], [facility] [phone] * MAGNESIUM BLOOD (03/01/2021 12:11 AM CDT) Magnesium 2.1 1.6 - 2.6 mg/dL 03/01/2021 12:42 AM CDT [facility] Blood BLOOD SPECIMEN / Unknown Venipuncture / Unknown 03/01/2021 12:11 AM CDT 03/01/2021 12:18 AM CDT Fredy Felipe MD LAB - CHEMISTRY JOSE ENRIQUE VELA Performing Organization Address City/[facility]/ZIP Co de Phone Number [address] [address], [facility] [phone] * CALCIUM IONIZED WHOLE BLOOD (03/01/2021 12:11 AM CDT) Calcium Ionized 1.21 mmol/L 03/01/2021 12:22 AM CDT [facility] pH 7.45 7.35 - 7.45 pH 03/01/2021 12:22 AM CDT [facility] Ionized Calcium pH Adjusted 1.24 1.19 - 1.34 mmol/L 03/01/2021 12:22 AM CDT [facility] Blood BLOOD SPECIMEN / Unknown Venipuncture / Unknown 03/01/2021 12:11 AM CDT 03/01/2021 12:16 AM CDT Fredy Felipe MD LAB - CHEMISTRY JOSE ENRIQUE VELA Performing Organization Address [facility] Co de Phone Number [address] [address], [facility] [phone] * XR CHEST 1VW PORTABLE (02/28/2021 5:13 AM CDT) Anatomical Region Laterality Modality Chest Radiographic Sera ging 02/28/2021 1:26 PM CDT Impressions 02/28/2021 4:37 PM CDT IMPRESSION: No significant change, diffuse multifocal patchy opacities, may represent multifocal pneumonia or pulmonary contusions given the history of trauma. Report dictated by Simone Alexander MD, PhD (vice president and portfolio manager). I, Dr. Jamaal CASTILLO M.D. have [...] Report dictated by Simone Alexander MD, PhD (vice president and portfolio manager). Dr. Jamaal Yao M.D. have personally [...] Report dictated by Simone Alexander MD, PhD (vice president and portfolio manager). Dr. Jamaal Yao M.D. have personally [...] Report dictated by Simone Alexander MD, PhD (vice president and portfolio manager). I, Dr. Jamaal CASTILLO M.D. have personally reviewed and interpretedthis examination/study. This report was electronically signed by Jamaal CASTILLO M.D. on 02/28/2021 4:24 PM . Dino Hudson PA-C DIAGNOSTIC IMAGIN G ORDERABLES * (ABNORMAL) DIFFERENTIAL MANUAL (02/28/2021 12:56 AM CDT) WBC (corrected for NRBC) 21.9 10? 3 /uL 02/28/2021 3:04 [facility] Total Cell Count 100 02/28/2021 3:04 [facility] Neutrophils Absolute Manual 17.96(H) 1.60 - 7.00 10? 3 /uL 02/28/2021 3:04 AM [facility] Comment:(BANDS+SEGS) x WBC = NEUT # (ANC) Lymphocyte Absolute Manual 1.10 1.10 - 3.90 10? 3 /uL 02/28/2021 3:04 AM [facility] Monocytes Absolute Manual 2.41(H) 0.26 - 1.07 10? 3 /uL 02/28/2021 3:04 AM [facility] Eosinophils Absolute Manual 0.44 0.00 - 0.47 10? 3 /uL 02/28/2021 3:04 [facility] Neutrophil % Manual 82(H) 35 - 70 % 02/28/2021 3:04 AM [facility] Lymphocyte % Manual 5(L) 20 - 43 % 02/28/2021 3:04 AM CDT [facility] Monocytes % Manual 11 5 - 13 % 02/28/2021 3:04 AM CDT [facility] Eosinophils % Manual 2 0 - 6 % 02/28/2021 3:04 AM CDT [facility] Platelet Estimate Increased( A) Adequate 02/28/2021 3:04 AM CDT [facility] RBC Morphology Normal 02/28/2021 3:04 AM CDT [facility] Blood BLOOD SPECIMEN / Unknown Venipuncture / Unknown 02/28/2021 12:56 AM CDT 02/28/2021 1:22 AM CDT Fredy Felipe MD LAB - HEMATOLOGY ORD ERABLES Performing Organization Address City/[facility]/ZIP Co de Phone Number [address] [address], [place] [phone] * (ABNORMAL) TRIGLYCERIDES BLOOD (02/28/2021 12:56 AM CDT) Triglycerides 389(H) <150 mg/dL 02/28/2021 1:51 AM CDT [facility] Comment: ATP III Classification of Triglycerides: ?<150 mg/dL: ??Normal ? 150 - 199 mg/dL: ??Borderline High ? 200 - 400 mg/dL: ??High ?>500 mg/dL: ??Very High Blood BLOOD SPECIMEN / Unknown Venipuncture / Unknown 02/28/2021 12:56 AM CDT 02/28/2021 1:22 AM CDT Kelvin Stewart MD LAB - CHEMISTRY ORD ERABLES [address] [address], [place] [phone] * (ABNORMAL) CBC W AUTO DIFFERENTIAL (02/28/2021 12:56 AM CDT) WBC 21.9(H) 3.5 - 10.5 10? 3 /uL 02/28/2021 1:31 AM [facility] RBC 3.81(L) 4.30 - 5.70 10? 6 /uL 02/28/2021 1:31 [facility] Hemoglobin 10.4(L) 12.0 - 17.6 g/dL 02/28/2021 1:31 [facility] Hematocrit 32.7(L) 35.2 - 51.7 % 02/28/2021 1:31 [facility] MCV 85.8 80.7 - 98.3 fL 02/28/2021 1:31 [facility] MCH 27.3 26.7 - 34.0 pg 02/28/2021 1:31 [facility] MCHC 31.8 30.8 - 35.9 g/dL 02/28/2021 1:31 [facility] Platelet Count 493(H) 150 - 400 10? 3 /uL 02/28/2021 1:31 [facility] RDW-SD 43.9 36.0 - 50.0 fL 02/28/2021 1:31 [facility] RDW-CV 14.0 11.2 - 14.8 % 02/28/2021 1:31 [facility] MPV 9.1(L) 9.4 - 12.9 fL 02/28/2021 1:31 [facility] nRBC Absolute 0.02(H) 0 10? 3 /uL 02/28/2021 1:31 [facility] nRBC Auto 0.1(H) 0 /100 WBC 02/28/2021 1:31 [facility] Blood BLOOD SPECIMEN / Unknown Venipuncture / Unknown 02/28/2021 12:56 AM CDT 02/28/2021 1:22 AM T Fredy Felipe MD LAB - HEMATOLOGY ORD ERABLES [facility] [address] [place] [address], [place] [phone] * (ABNORMAL) BASIC METABOLIC PANEL (CALCIUM TOTAL) (02/28/2021 12:56 AM CDT) BUN 24 7 - 26 mg/dL 02/28/2021 1:51 AM [facility] Creatinine 1.30(H) 0.71 - 1.16 mg/dL 02/28/2021 1:51 AM [facility] Sodium 138 136 - 145 mmol/L 02/28/2021 1:51 AM [facility] Potassium 4.2 3.5 - 4.5 mmol/L 02/28/2021 1:51 [facility] Chloride 107 98 - 107 mmol/L 02/28/2021 1:51 [facility] CO2 19(L) 22 - 29 mmol/L 02/28/2021 1:51 [facility] Glucose 93 70 - 115 mg/dL 02/28/2021 1:51 [facility] Calcium 9.2 8.4 - 10.2 mg/dL 02/28/2021 1:51 [facility] Anion Gap 16 8 - 18 02/28/2021 1:51 [facility] BUN/Creatinine Ratio 18 7 - 23 02/28/2021 1:51 AM [facility] Osmolality Calculated 290 270 - 300 mOsm/kg 02/28/2021 1:51 [facility] eGFR by CKD-EPI 71(L) >=90 mL/min/1.7 3 m2 02/28/2021 1:51 [facility] Blood BLOOD SPECIMEN / Unknown Venipuncture / Unknown 02/28/2021 12:56 AM CDT 02/28/2021 1:22 AM T Fredy Felipe MD LAB - CHEMISTRY JOSE ENRIQUE Pena Organization Address City/State/ZIP Co de Phone Number [facility] [address] [place] [address], [facility] [phone] * (ABNORMAL) BLOOD GASES ART + COOX PANEL (02/28/2021 12:56 AM CDT) pH Arterial 7.50(H) 7.35 - 7.45 pH 02/28/2021 1:20 [facility] pO2 Arterial 142(H) 80 - 100 mmHg 02/28/2021 1:20 [facility] pCO2 Arterial 27(L) 35 - 45 mmHg 1:20 [facility] HCO3 Arterial 21 20 - 30 mmol/l 02/28/2021 1:20 [facility] BE Arterial -1.1 -2.0 - 2.0 mmol/L 02/28/2021 1:20 [facility] Oxyhemoglobin Arterial 96.0 % 02/28/2021 1:20 [facility] Dexoyhemoglobin (HHB) % 0.5 % 02/28/2021 1:20 [facility] Methemoglobin 1.3 0.0 - 2.0 % 02/28/2021 1:20 [facility] Carboxyhemoglobin 2.3(H) 0.0 - 2.0 % 2020 1:20 [facility] O2 Content Arterial 15.3 Interpret within clinical context mg/dL 02/28/2021 1:20 [facility] Hemoglobin by COOX 11.1(L) 12.0 - 17.6 g/dL 02/28/2021 1:20 [facility] O2 Saturation Arterial 100 90 - 100 % 02/28/2021 1:20 [facility] FI O2 Arterial 40.0 % 02/28/2021 1:20 [facility] Blood, arterial ARTERIAL BLOOD SPECIMEN / Unknown Arterial Puncture / Unknown 02/28/2021 12:56 AM T 02/28/2021 1:18 AM [facility] - 02/28/2021 1:20 AM [facility] Carboxyhemoglobin Normal Concentration: Non-smokers: 0-2%; Smokers: 0-9%; Toxic: >20% Fredy Felipe MD LAB - BLOOD GASES OR DERABLES [facility] [address] [place] [address], [facility] [phone] * PT-INR [facility] (02/28/2021 12:56 AM CDT) PT 14.3 12.1 - 14.8 Seconds 02/28/2021 1:42 AM CDT [facility] INR 1.1 See Comment 02/28/2021 1:42 AM CDT [facility] Comment:The suggested therap eutic range for standard coumadin (warfarin) therapy is an INR of 2.0-3.0. For high-risk patients (Mechanical Mitral Valve Prosthesis, etc.), the suggested prophylactic therapeutic range is an INR of 2.5-3.5. Blood BLOOD SPECIMEN / Unknown Venipuncture / Unknown 02/28/2021 12:56 AM CDT 02/28/2021 1:20 AM CDT Fredy Felipe MD LAB - COAGULATION OR DERABLES Performing Organization Address City/[facility]/ZIP Co de Phone Number [address] [address], [facility] [phone] * PHOSPHORUS BLOOD (02/28/2021 12:56 AM CDT) [facility] Phosphorus 4.0 2.8 - 5.1 mg/dL 02/28/2021 1:51 AM CDT [facility] Blood BLOOD SPECIMEN / Unknown Venipuncture / Unknown 02/28/2021 12:56 AM CDT 02/28/2021 1:22 AM CDT Fredy Felipe MD LAB - CHEMISTRY ORDE RABLES Performing Organization Address City/[facility]/ZIP Co de Phone Number [address] [address], [facility] [phone] * MAGNESIUM BLOOD (02/28/2021 12:56 AM CDT) Magnesium 2.1 1.6 - 2.6 mg/dL 02/28/2021 1:51 AM CDT [facility] Blood BLOOD SPECIMEN / Unknown Venipuncture / Unknown 02/28/2021 12:56 AM CDT 02/28/2021 1:22 AM CDT Fredy Felipe MD LAB - CHEMISTRY JOSE ENRIQUE VELA Performing Organization Address [facility] Co de Phone Number [address] [address], [facility] [phone] * (ABNORMAL) CALCIUM IONIZED WHOLE BLOOD (02/28/2021 12:56 AM CDT) Calcium Ionized 1.22 mmol/L 02/28/2021 1:21 AM CDT [facility] pH 7.49(H) 7.35 - 7.45 pH 02/28/2021 1:21 AM CDT [facility] Ionized Calcium pH Adjusted 1.27 1.19 - 1.34 mmol/L 02/28/2021 1:21 AM CDT [facility] Blood BLOOD SPECIMEN / Unknown Venipuncture / Unknown 02/28/2021 12:56 AM CDT 02/28/2021 1:18 AM CDT Fredy Felipe MD LAB - CHEMISTRY JOSE ENRIQUE VELA Performing Organization Address [facility] Co de Phone Number [address] [address], [facility] [phone] * XR CHEST 1VW PORTABLE (02/27/2021 5:30 [...] is stable. Dictated by Rico Sawant DO (vice president and portfolio manager). Dr. Jamaal Yao M.D. have personally [...] is stable. Dictated by Rico Sawant DO (vice president and portfolio manager). Dr. Jamaal Yao M.D. have personally [...] is identified. Dictated by Rico Sawant DO (vice president and portfolio manager). Dr. NAOMY Yao MD, FRKEN have personally [...] is identified. Dictated by Rico Sawant DO (vice president and portfolio manager). Dr. NAOMY Yao MD, FRKEN have personally reviewedand interpreted this examination/study. This report was electronically signed by NAOMY LAZO MD, KATHLEEN on 02/28/2021 3:46 PM . Fredy Felipe MD DIAGNOSTIC IMAGING O RDERABLES * (ABNORMAL) PT-INR [facility] (02/27/2021 1:31 AM CDT) PT 14.9(H) 12.1 - 14.8 Seconds 02/27/2021 1:48 AM [facility] INR 1.2 See Comment 02/27/2021 1:48 AM [facility] Comment:The suggested therap eutic range for standard coumadin (warfarin) therapy is an INR of 2.0-3.0. For high-risk patients (Mechanical Mitral Valve Prosthesis, etc.), the suggested prophylactic therapeutic range is an INR of 2.5-3.5. Blood BLOOD SPECIMEN / Unknown Venipuncture / Unknown 02/27/2021 1:31 AM CDT 02/27/2021 1:35 AM CDT Fredy Felipe MD LAB - COAGULATION OR DERABLES [facility] [address] [place] [address], [facility] [phone] * (ABNORMAL) DIFFERENTIAL MANUAL (02/27/2021 12:52 AM CDT) [facility] WBC (corrected for NRBC) 28.9 10? 3 /uL 02/27/2021 2:19 AM [facility] Total Cell Count 100 02/27/2021 2:19 AM [facility] Neutrophils Absolute Manual 23.12(H) 1.60 - 7.00 10? 3 /uL 02/27/2021 2:19 AM [facility] Comment:(BANDS+SEGS) x WBC = NEUT # (ANC) Lymphocyte Absolute Manual 1.16 1.10 - 3.90 10? 3 /uL 02/27/2021 2:19 AM [facility] Monocytes Absolute Manual 4.05(H) 0.26 - 1.07 10? 3 /uL 02/27/2021 2:19 AM [facility] Eosinophils Absolute Manual 0.29 0.00 - 0.47 10? 3 /uL 02/27/2021 2:19 AM [facility] Neutrophil % Manual 80(H) 35 - 70 % 02/27/2021 2:19 AM [facility] Lymphocyte % Manual 4(L) 20 - 43 % 02/27/2021 2:19 AM [facility] Monocytes % Manual 14(H) 5 - 13 % 02/27/2021 2:19 AM [facility] Eosinophils % Manual 1 0 - 6 % 02/27/2021 2:19 AM [facility] Atypical Lymphocyte % Manual 1(H) 0 %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 (Mechanical Mitral Valve Prosthesis, etc.), the suggested prophylactic therapeutic range is an INR of 2.5-3.5. Blood BLOOD SPECIMEN / Unknown Venipuncture / Unknown 02/25/2021 2:36 AM CDT 02/25/2021 2:46 AM CDT Fredy Felipe MD LAB - COAGULATION OR DERABLES Performing Organization Address [facility] Co de Phone Number [address] [address], [facility] [phone] * PHOSPHORUS BLOOD (02/25/2021 2:36 AM CDT) Phosphorus 4.8 2.8 - 5.1 mg/dL 02/25/2021 3:11 AM CDT [facility] Blood BLOOD SPECIMEN / Unknown Venipuncture / Unknown 02/25/2021 2:36 AM CDT 02/25/2021 2:46 AM CDT Fredy Felipe MD LAB - CHEMISTRY JOSE ENRIQUE VELA Performing Organization Address [facility] Co de Phone Number [address] [address], [facility] [phone] * MAGNESIUM BLOOD (02/25/2021 2:36 AM CDT) Magnesium 1.6 1.6 - 2.6 mg/dL 02/25/2021 3:11 AM CDT [facility] Blood BLOOD SPECIMEN / Unknown Venipuncture / Unknown 02/25/2021 2:36 AM CDT 02/25/2021 2:46 AM CDT Fredy Felipe MD LAB - CHEMISTRY JOSE ENRIQUE VELA Performing Organization Address City/[facility] Co de Phone Number [address] [address], [facility] [phone] * (ABNORMAL) CALCIUM IONIZED WHOLE BLOOD (02/25/2021 2:36 AM CDT) Calcium Ionized 1.10 mmol/L 02/25/2021 2:49 AM CDT [facility] pH 7.42 7.35 - 7.45 pH 02/25/2021 2:49 AM CDT [facility] Ionized Calcium pH Adjusted 1.11(L) 1.19 - 1.34 mmol/L 02/25/2021 2:49 AM CDT [facility] Blood BLOOD SPECIMEN / Unknown Venipuncture / Unknown 02/25/2021 2:36 AM CDT 02/25/2021 2:46 AM CDT Fredy Felipe MD LAB - CHEMISTRY JOSE ENRIQUE VELA Performing Organization Address [facility]/State/ZIP Co de Phone Number [address] [phone], [facility] [phone] * XR ABDOMEN KUB PORTABLE (02/25/2021 1:32 AM CDT) Anatomical Region Laterality Modality Abdomen Radiographic Sera ging 02/25/2021 8:31 AM CDT Impressions 02/25/2021 1:30 PM CDT IMPRESSION: Examination limited by patient's obesity. Non-obstructive bowel gas pattern, no evidence of retained surgical material. Dictated by Rico Sawant D.O. (Food Safety Specialist) I, Dr. TAINA PAVON have personally reviewed [...] surgical material. Dictated by Rico Sawant D.O. (Food Safety Specialist) I, Dr. TAINA PAVON have personally reviewed and interpreted this examination/study. This report was electronically signed by TAINA PAVON on 02/25/2021 1:30 PM . Nena Obrien DO DIAGNOSTIC IMAGING O RDERABLES * TYPE + SCREEN PANEL (02/24/2021 10:10 AM CDT) Antibody Screen NEG 11:29 AM CDT [facility] ABO Rh O POS 02/24/2021 11:29 AM CDT [facility] Blood Bank BLOOD SPECIMEN / Unknown Venipuncture / Unknown 02/24/2021 10:10 AM CDT 02/24/2021 10:35 AM CDT Mario Garcia MD LAB - BLOOD BANK ORD ERABLES [facility] [address] [place] [address], [facility] [phone] * XR CHEST 1VW PORTABLE (02/24/2021 5:51 [...] Report dictated by Simone Alexander MD, PhD (vice president and portfolio manager). I, Dr. TAINA PAVON have personally [...] Report dictated by Simone Alexander MD, PhD (vice president and portfolio manager). I, Dr. TAINA PAOVN have personally reviewed and interpreted this examination/study. This report was electronically signed by TAINA PAVON on 02/25/2021 1:44 PM . Fredy Felipe MD DIAGNOSTIC IMAGING O RDERABLES * (ABNORMAL) CBC W AUTO DIFFERENTIAL (02/24/2021 12:28 AM T) WBC 13.9(H) 3.5 - 10.5 10? 3 /uL 02/24/2021 12:42 AM [facility] RBC 4.24(L) 4.30 - 5.70 10? 6 /uL 02/24/2021 12:42 AM [facility] Hemoglobin 11.8(L) 12.0 - 17.6 g/dL 02/24/2021 12:42 AM [facility] Hematocrit 36.4 35.2 - 51.7 % 02/24/2021 12:42 AM [facility] MCV 85.8 80.7 - 98.3 fL 02/24/2021 12:42 AM [facility] MCH 27.8 26.7 - 34.0 pg 02/24/2021 12:42 AM [facility] MCHC 32.4 30.8 - 35.9 g/dL 02/24/2021 12:42 AM [facility] Platelet Count 402(H) 150 - 400 10? 3 /uL 02/24/2021 12:42 AM [facility] RDW-SD 42.7 36.0 - 50.0 fL 02/24/2021 12:42 AM [facility] RDW-CV 13.8 11.2 - 14.8 % 02/24/2021 12:42 AM [facility] MPV 9.0(L) 9.4 - 12.9 fL 02/24/2021 12:42 AM [facility] nRBC Absolute 0.00 0 10? 3 /uL 02/24/2021 12:42 AM [facility] nRBC Auto 0.0 0 /100 WBC 02/24/2021 12:42 AM [facility] Neutrophils % 76.6(H) 35.0 - 70.0 % 02/24/2021 12:42 AM [facility] Lymphocytes % 10.0(L) 20.0 - 43.0 % 02/24/2021 12:42 AM [facility] Monocytes % 7.6 5.0 - 13.0 % 02/24/2021 12:42 AM [facility] Eosinophils % 3.8 0.0 - 6.0 % 02/24/2021 12:42 AM [facility] Basophil % 0.4 0.0 - 2.0 % 02/24/2021 12:42 AM [facility] Neutrophils Absolute 10.7(H) 1.6 - 7.0 10? 3 /uL 02/24/2021 12:42 AM [facility] Lymphocyte Absolute 1.4 1.1 - 3.9 10? 3 /uL 02/24/2021 12:42 AM [facility] Monocytes Absolute 1.06 0.26 - 1.07 10? 3 /uL 02/24/2021 12:42 AM [facility] Eosinophils Absolute 0.53(H) 0.00 - 0.47 10? 3 /uL 02/24/2021 12:42 AM [facility] Basophils Absolute 0.05 0.00 - 0.08 10? 3 /uL 02/24/2021 12:42 AM [facility] Immature Granulocytes % 1.6(H) 0.0 - 1.0 % 02/24/2021 12:42 AM [facility] Immature Granulocytes Absolute 0.22 02/24/2021 12:42 AM [facility] Blood BLOOD SPECIMEN / Unknown Venipuncture / Unknown 02/24/2021 12:28 AM CDT 02/24/2021 12:37 AM T Fredy Felipe MD LAB - HEMATOLOGY ORD ERABLES [facility] [address] [place] [address], [facility] [phone] * (ABNORMAL) BASIC METABOLIC PANEL (CALCIUM TOTAL) (02/24/2021 12:28 AM CDT) BUN 6(L) 7 - 26 mg/dL 02/24/2021 1:02 AM [facility] Creatinine 0.65(L) 0.71 - 1.16 mg/dL 02/24/2021 1:02 AM [facility] Sodium 138 136 - 145 mmol/L 02/24/2021 1:02 AM [facility] Potassium 4.2 3.5 - 4.5 mmol/L 02/24/2021 1:02 AM [facility] Chloride 103 98 - 107 mmol/L 02/24/2021 1:02 AM [facility] CO2 25 22 - 29 mmol/L 02/24/2021 1:02 AM [facility] Glucose 131(H) 70 - 115 mg/dL 02/24/2021 1:02 AM [facility] Calcium 8.4 8.4 - 10.2 mg/dL 02/24/2021 1:02 AM [facility] Anion Gap 14 8 - 18 02/24/2021 1:02 AM [facility] BUN/Creatinine Ratio 9 7 - 23 02/24/2021 1:02 AM [facility] Osmolality Calculated 285 270 - 300 mOsm/kg 02/24/2021 1:02 AM [facility] eGFR by CKD-EPI >90 >=90 mL/min/1.7 3 m2 02/24/2021 1:02 AM [facility] Blood BLOOD SPECIMEN / Unknown Venipuncture / Unknown 02/24/2021 12:28 AM CDT 02/24/2021 12:37 AM T Fredy Felipe MD LAB - CHEMISTRY JOSE ENRIQUE VELA [facility] [address] [place] [address] [phone] * (ABNORMAL) BLOOD GASES ART + COOX PANEL (02/24/2021 12:28 AM [facility]) pH Arterial 7.44 7.35 - 7.45 pH 02/24/2021 12:37 AM [facility] pO2 Arterial 110(H) 80 - 100 mmHg 02/24/2021 12:37 AM [facility] pCO2 Arterial 41 35 - 45 mmHg 12:37 AM [facility] HCO3 Arterial 28 20 - 30 mmol/l 02/24/2021 12:37 AM [facility] BE Arterial 3.3(H) -2.0 - 2.0 mmol/L 02/24/2021 12:37 AM [facility] Oxyhemoglobin Arterial 96.5 % 02/24/2021 12:37 AM [facility] Dexoyhemoglobin (HHB) % 1.0 % 02/24/2021 12:37 AM [facility] Methemoglobin <0.8 0.0 - 2.0 % 02/24/2021 12:37 AM [facility] Carboxyhemoglobin 1.8 0.0 - 2.0 % 2020 12:37 AM [facility] O2 Content Arterial 16.6 Interpret within clinical context mg/dL 02/24/2021 12:37 AM [facility] Hemoglobin by COOX 12.1 12.0 - 17.6 g/dL 02/24/2021 12:37 AM [facility] O2 Saturation Arterial 99 90 - 100 % 02/24/2021 12:37 AM [facility] FI O2 Arterial 45.0 % 02/24/2021 12:37 AM [facility] Blood, arterial ARTERIAL BLOOD SPECIMEN / Unknown Arterial Puncture / Unknown 02/24/2021 12:28 AM T 02/24/2021 12:34 AM [facility] - 02/24/2021 12:37 AM [facility] Carboxyhemoglobin Normal Concentration: Non-smokers: 0-2%; Smokers: 0-9%; Toxic: >20% Fredy Felipe MD LAB - BLOOD GASES OR DERABLES [address] [address], [facility] [phone] * PT-INR [facility] (02/24/2021 12:28 AM CDT) PT 14.2 12.1 - 14.8 Seconds 02/24/2021 12:45 AM CDT [facility] INR 1.1 See Comment 02/24/2021 12:45 AM CDT [facility] Comment:The suggested therap eutic range for standard coumadin (warfarin) therapy is an INR of 2.0-3.0. For high-risk patients (Mechanical Mitral Valve Prosthesis, etc.), the suggested prophylactic therapeutic range is an INR of 2.5-3.5. Blood BLOOD SPECIMEN / Unknown Venipuncture / Unknown 02/24/2021 12:28 AM CDT 02/24/2021 12:37 AM CDT Fredy Felipe MD LAB - COAGULATION OR DERABLES Performing Organization Address [facility]/ZIP Co de Phone Number [address] [address], [place] [phone] * PHOSPHORUS BLOOD (02/24/2021 12:28 AM CDT) [facility] Phosphorus 3.9 2.8 - 5.1 mg/dL 02/24/2021 1:02 AM CDT [facility] Blood BLOOD SPECIMEN / Unknown Venipuncture / Unknown 02/24/2021 12:28 AM CDT 02/24/2021 12:37 AM CDT Fredy Felipe MD LAB - CHEMISTRY JOSE ENRIQUE VELA [address] [address], [place] [phone] * MAGNESIUM BLOOD (02/24/2021 12:28 AM CDT) Magnesium 1.8 1.6 - 2.6 mg/dL 02/24/2021 1:02 AM CDT [facility] Blood BLOOD SPECIMEN / Unknown Venipuncture / Unknown 02/24/2021 12:28 AM CDT 02/24/2021 12:37 AM CDT Fredy Felipe MD LAB - CHEMISTRY JOSE ENRIQUE VELA Performing Organization Address [facility] Co de Phone Number [address] [address], [facility] [phone] * (ABNORMAL) CALCIUM IONIZED WHOLE BLOOD (02/24/2021 12:28 AM CDT) Pathologist [facility] Calcium Ionized 1.16 mmol/L 02/24/2021 12:40 AM CDT [facility] pH 7.45 7.35 - 7.45 pH 02/24/2021 12:40 AM CDT [facility] Ionized Calcium pH Adjusted 1.18(L) 1.19 - 1.34 mmol/L 02/24/2021 12:40 AM CDT [facility] Blood BLOOD SPECIMEN / Unknown Venipuncture / Unknown 02/24/2021 12:28 AM CDT 02/24/2021 12:34 AM CDT Fredy Felipe MD LAB - CHEMISTRY JOSE ENRIQUE VELA Performing Organization Address [facility] de Phone Number [address] [address], [facility] [phone] * XR CHEST 1VW PORTABLE (02/23/2021 5:05 AM CDT) Anatomical Region Laterality Modality Chest Radiographic Sera ging 02/23/2021 5:19 AM CDT Impressions 02/23/2021 10:53 AM CDT FINDINGS/IMPRESSION: An endotracheal tube terminates in mid thoracic trachea. A left subclavian approach central venous catheter terminates in the left brachiocephalic vein. A gastric tube courses to the stomach out of the [id number]. A right thoracostomy tube is unchanged in position. Small bilateral pleural effusions are suggested. Bibasilar airspace opacities may represent atelectasis and/or airspace disease. There is no pneumothorax. The cardiomediastinal silhouette is partially obscured. Dictated by Alverto Ames MD (vice president and portfolio manager). I, Dr. NENA CLEMENTE have personally [...] courses to the stomach out of the [id number]-[id number]. A right thoracostomy tube is unchanged in position. Small bilateral pleural effusions are suggested. Bibasilar airspace opacities may represent atelectasis and/or airspace disease. There is no pneumothorax. The cardiomediastinal silhouette is partially obscured. Dictated by Alverto Ames MD (vice president and portfolio manager). I, Dr. NENA CLEMENTE have personally reviewed and interpreted this examination/study. This report was electronically signed by NENA CLEMENTE on 02/23/2021 10:53 AM . Fredy Felipe MD DIAGNOSTIC IMAGING O RDERABLES * PREPARE (CROSSMATCH) RBC UNIT(S), 2 Units (02/23/2021 1:17 AM CDT) Unit Description AS1 LR PRBC [facility] Unit ABO O [facility] Unit Rh POS [facility] Product Number R02 [facility] B LOOD [facility] Unit Donor # [id number] [facility] Unit Status released [facility] BLOO D BANK LAB Product Code [id number] [facility] Blood Type Barcode 5100 [facility] Expiration Date S BLOOD BANK LAB Unit Description AS1 LR PRBC [facility] Unit ABO O [facility] Unit Rh POS [facility] Product Number R02 [facility] B LOOD [facility] Unit Donor # [id number] [facility] Unit Status released [facility] BLOO D [facility] Product Code [id number] [facility] BLO OD [facility] Blood Type Barcode 5100 [facility] Expiration Date S BLOOD BANK LAB Blood Bank BLOOD SPECIMEN / Unknown 02/19/2021 7:34 AM CDT Fredy Felipe MD LAB - BLOOD BANK ORD ERABLES [facility] [address] [place] [address], [facility] [phone] * (ABNORMAL) CBC W AUTO DIFFERENTIAL (02/23/2021 12:21 AM CDT) WBC 13.5(H) 3.5 - 10.5 10? 3 /uL 02/23/2021 1:02 AM [facility] RBC 4.32 4.30 - 5.70 10? 6 /uL 02/23/2021 1:02 AM [facility] Hemoglobin 12.0 12.0 - 17.6 g/dL 02/23/2021 1:02 AM [facility] Hematocrit 38.1 35.2 - 51.7 % 02/23/2021 1:02 AM [facility] MCV 88.2 80.7 - 98.3 fL 02/23/2021 1:02 AM [facility] MCH 27.8 26.7 - 34.0 pg 02/23/2021 1:02 AM [facility] MCHC 31.5 30.8 - 35.9 g/dL 02/23/2021 1:02 AM [facility] Platelet Count 403(H) 150 - 400 10? 3 /uL 02/23/2021 1:02 AM [facility] RDW-SD 45.1 36.0 - 50.0 fL 02/23/2021 1:02 AM [facility] RDW-CV 14.0 11.2 - 14.8 % 02/23/2021 1:02 AM [facility] MPV 9.2(L) 9.4 - 12.9 fL 02/23/2021 1:02 AM [facility] nRBC Absolute 0.00 0 10? 3 /uL 02/23/2021 1:02 AM [facility] nRBC Auto 0.0 0 /100 WBC 02/23/2021 1:02 AM [facility] Neutrophils % 74.4(H) 35.0 - 70.0 % 02/23/2021 1:02 AM [facility] Lymphocytes % 10.5(L) 20.0 - 43.0 % 02/23/2021 1:02 AM [facility] Monocytes % 9.6 5.0 - 13.0 % 02/23/2021 1:02 AM [facility] Eosinophils % 4.0 0.0 - 6.0 % 02/23/2021 1:02 AM [facility] Basophil % 0.2 0.0 - 2.0 % 02/23/2021 1:02 AM [facility] Neutrophils Absolute 10.0(H) 1.6 - 7.0 10? 3 /uL 02/23/2021 1:02 AM [facility] Lymphocyte Absolute 1.4 1.1 - 3.9 10? 3 /uL 02/23/2021 1:02 AM [facility] Monocytes Absolute 1.30(H) 0.26 - 1.07 10? 3 /uL 02/23/2021 1:02 AM [facility] Eosinophils Absolute 0.54(H) 0.00 - 0.47 10? 3 /uL 02/23/2021 1:02 AM [facility] Basophils Absolute 0.03 0.00 - 0.08 10? 3 /uL 02/23/2021 1:02 AM [facility] Immature Granulocytes % 1.3(H) 0.0 - 1.0 % 02/23/2021 1:02 AM [facility] Immature Granulocytes Absolute 0.18 02/23/2021 1:02 AM [facility] Blood BLOOD SPECIMEN / Unknown Venipuncture / Unknown 02/23/2021 12:21 AM CDT 02/23/2021 12:57 AM CDT Fredy Felipe MD LAB - HEMATOLOGY ORD ERABLES [facility] [address] [place] [address], [facility] [phone] * (ABNORMAL) BASIC METABOLIC PANEL (CALCIUM TOTAL) (02/23/2021 12:21 AM T) BUN 10 7 - 26 mg/dL 02/23/2021 1:22 AM [facility] Creatinine 0.84 0.71 - 1.16 mg/dL 02/23/2021 1:22 AM [facility] Sodium 139 136 - 145 mmol/L 02/23/2021 1:22 AM [facility] Potassium 4.2 3.5 - 4.5 mmol/L 02/23/2021 1:22 AM [facility] Chloride 103 98 - 107 mmol/L 02/23/2021 1:22 AM [facility] CO2 30(H) 22 - 29 mmol/L 02/23/2021 1:22 AM [facility] Glucose 145(H) 70 - 115 mg/dL 02/23/2021 1:22 AM [facility] Calcium 8.4 8.4 - 10.2 mg/dL 02/23/2021 1:22 AM [facility] Anion Gap 10 8 - 18 02/23/2021 1:22 AM [facility] BUN/Creatinine Ratio 12 7 - 23 02/23/2021 1:22 AM [facility] Osmolality Calculated 290 270 - 300 mOsm/kg 02/23/2021 1:22 AM [facility] eGFR by CKD-EPI >90 >=90 mL/min/1.7 3 m2 02/23/2021 1:22 AM [facility] Blood BLOOD SPECIMEN / Unknown Venipuncture / Unknown 02/23/2021 12:21 AM CDT 02/23/2021 12:57 AM T Fredy Felipe MD LAB - CHEMISTRY JOSE ENRIQUE VELA [facility] Organization Address City/State/ZIP Co de Phone Number [facility] [address] [place] [address], [facility] [phone] * (ABNORMAL) BLOOD GASES ART + COOX PANEL (02/23/2021 12:21 AM CDT) pH Arterial 7.43 7.35 - 7.45 pH 02/23/2021 1:02 AM [facility] pO2 Arterial 110(H) 80 - 100 mmHg 02/23/2021 1:02 AM [facility] pCO2 Arterial 44 35 - 45 mmHg 1:02 AM [facility] HCO3 Arterial 29 20 - 30 mmol/l 02/23/2021 1:02 AM [facility] BE Arterial 4.3(H) -2.0 - 2.0 mmol/L 02/23/2021 1:02 AM [facility] Oxyhemoglobin Arterial 97.1 % 02/23/2021 1:02 AM [facility] Dexoyhemoglobin (HHB) % 0.6 % 02/23/2021 1:02 AM [facility] Methemoglobin 0.8 0.0 - 2.0 % 02/23/2021 1:02 AM [facility] Carboxyhemoglobin 1.5 0.0 - 2.0 % 2020 1:02 AM [facility] O2 Content Arterial 17.5 Interpret within clinical context mg/dL 02/23/2021 1:02 AM [facility] Hemoglobin by COOX 12.7 12.0 - 17.6 g/dL 02/23/2021 1:02 AM [facility] O2 Saturation Arterial 99 90 - 100 % 02/23/2021 1:02 AM [facility] FI O2 Arterial 55.0 % 02/23/2021 1:02 AM CDT [facility] Blood, arterial ARTERIAL BLOOD SPECIMEN / Unknown Arterial Puncture / Unknown 02/23/2021 12:21 AM CDT 02/23/2021 12:55 AM CDT Narrative [facility] - 02/23/2021 1:02 AM CDT Carboxyhemoglobin Normal Concentration: Non-smokers: 0-2%; Smokers: 0-9%; Toxic: >20% Fredy Felipe MD LAB - BLOOD GASES OR DERABLES Performing Organization Address [facility] Co de Phone Number [facility] [address] [place] [address], [facility] [phone] * PT-INR [facility] (02/23/2021 12:21 AM CDT) PT 14.4 12.1 - 14.8 Seconds 02/23/2021 1:07 AM T [facility] INR 1.2 See Comment 02/23/2021 1:07 AM T [facility] Comment:The suggested therap eutic range for standard coumadin (warfarin) therapy is an INR of 2.0-3.0. For high-risk patients (Mechanical Mitral Valve Prosthesis, etc.), the suggested prophylactic therapeutic range is an INR of 2.5-3.5. Blood BLOOD SPECIMEN / Unknown Venipuncture / Unknown 02/23/2021 12:21 AM CDT 02/23/2021 12:59 AM CDT Fredy Felipe MD LAB - COAGULATION OR DERABLES Performing Organization Address City/[facility]/ZIP Co de Phone Number [facility] [address] [place] [address], [facility] [phone] * PHOSPHORUS BLOOD (02/23/2021 12:21 AM CDT) Phosphorus 3.9 2.8 - 5.1 mg/dL 02/23/2021 1:22 AM T [facility] Blood BLOOD SPECIMEN / Unknown Venipuncture / Unknown 02/23/2021 12:21 AM CDT 02/23/2021 12:57 AM CDT Fredy Felipe MD LAB - CHEMISTRY JOSE ENRIQUE VELA [address] [address], [place] [phone] * MAGNESIUM BLOOD (02/23/2021 12:21 AM CDT) Magnesium 2.1 1.6 - 2.6 mg/dL 02/23/2021 1:22 AM CDT [facility] Blood BLOOD SPECIMEN / Unknown Venipuncture / Unknown 02/23/2021 12:21 AM CDT 02/23/2021 12:57 AM CDT Fredy Felipe MD LAB - CHEMISTRY JOSE ENRIQUE VELA Performing Organization Address City/[facility]/ZIP Co de Phone Number [address] [address], [place] [phone] * (ABNORMAL) CALCIUM IONIZED WHOLE BLOOD (02/23/2021 12:21 AM CDT) Calcium Ionized 1.12 mmol/L 02/23/2021 1:05 AM CDT [facility] pH 7.44 7.35 - 7.45 pH 02/23/2021 1:05 AM CDT [facility] Ionized Calcium pH Adjusted 1.14(L) 1.19 - 1.34 mmol/L 02/23/2021 1:05 AM CDT [facility] Blood BLOOD SPECIMEN / Unknown Venipuncture / Unknown 02/23/2021 12:21 AM CDT 02/23/2021 12:55 AM CDT Fredy Felipe MD LAB - CHEMISTRY JOSE ENRIQUE VELA [address] [address], [place] [phone] * CREATININE URINE RANDOM (02/22/2021 5:45 AM CDT) Creatinine Urine 212 Not Established mg/dL 02/22/2021 6:25 AM CDT [facility] Urine URINE SPECIMEN OBTAINED BY CLEAN CATCH PROCEDURE / Unknown Collection / Unknown 02/22/2021 5:45 AM CDT 02/22/2021 6:13 AM CDT Dino Hudson PA-C LAB - URINE CHEMI STRY ORDERABLES Performing Organization Address City/[facility]/ZIP Co de Phone Number [address] [address], [place] [phone] * UREA NITROGEN URINE RANDOM (02/22/2021 5:45 AM CDT) Urea Nitrogen Random Urine 1,198 Not Established mg/dL 02/22/2021 6:25 AM CDT [facility] Urine URINE SPECIMEN OBTAINED BY CLEAN CATCH PROCEDURE / Unknown Collection / Unknown 02/22/2021 5:45 AM CDT 02/22/2021 6:13 AM CDT Dino MORIN-C LAB - URINE CHEMI STRY ORDERABLES Performing Organization Address City/[facility]/ZIP Co de Phone Number [address] [address], [place] [phone] * SODIUM URINE RANDOM (02/22/2021 5:45 AM CDT) Sodium Urine 56 Not Established mmol/L 02/22/2021 6:25 AM CDT [facility] Urine URINE SPECIMEN OBTAINED BY CLEAN CATCH PROCEDURE / Unknown Collection / Unknown 02/22/2021 5:45 AM CDT 02/22/2021 6:13 AM CDT Dino MORIN-C LAB - URINE CHEMI STRY ORDERABLES Performing Organization Address City/[facility]/ZIP Co de Phone Number [address] [address], [place] [phone] * (ABNORMAL) URINALYSIS W/MICROSCOPIC NO CULTURE (02/22/2021 5:44 AM [facility]) Color UA Janis(A) Straw, Yellow 02/22/2021 6:08 AM [facility] Clarity UA Slt Cloudy(A) Clear 02/22/2021 6:08 AM [facility] Specific [place] UA 1.024 1.005 - 1.030 02/22/2021 6:08 AM [facility] pH UA 5.0 5.0 - 8.0 pH 02/22/2021 6:08 AM [facility] Protein UA 1+(A) Negative 02/22/2021 6:08 AM [facility] Glucose UA Negative Negative 02/22/2021 6:08 AM [facility] Ketone UA Negative Negative 02/22/2021 6:08 AM [facility] Bilirubin UA Negative Negative 02/22/2021 6:08 AM [facility] Blood UA 2+(A) Negative 02/22/2021 6:08 AM [facility] Nitrite UA Negative Negative 02/22/2021 6:08 AM [facility] Leukocyte Esterase Negative Negative 02/22/2021 6:08 AM [facility] Urobilinogen UA Negative Negative mg/dL 02/22/2021 6:08 AM [facility] RBC UA 51-100(A) None Seen, 0-2, 3-5 /HPF 02/22/2021 6:08 AM [facility] WBC UA 6-10(A) None Seen, 0-5 /HPF 02/22/2021 6:08 AM [facility] Bacteria UA 1+(A) None /HPF 02/22/2021 6:08 AM [facility] Squamous Epithelial Cells UA None Seen None Seen, 0-2, 3-5 /HPF 02/22/2021 6:08 AM [facility] Mucus UA 1+ /LPF 02/22/2021 6:08 AM [facility] Urine URINE SPECIMEN OBTAINED VIA [facility] / Unknown Collection / Unknown 02/22/2021 5:44 AM CDT 02/22/2021 5:49 AM CDT Narrative [facility] - 02/22/2021 6:08 AM CDT Dino Hudson PA-C LAB - URINALYSIS ORDERABLES [facility] [address] [place] [address], [facility] [phone] * XR CHEST 1VW PORTABLE (02/22/2021 4:54 [...] ART + COOX PANEL (02/22/2021 3:17 AM [facility]) pH Arterial 7.41 7.35 - 7.45 pH 02/22/2021 3:23 AM [facility] pO2 Arterial 94 80 - 100 mmHg 02/22/2021 3:23 AM [facility] pCO2 Arterial 46(H) 35 - 45 mmHg 3:23 AM [facility] HCO3 Arterial 29 20 - 30 mmol/l 02/22/2021 3:23 AM [facility] BE Arterial 3.8(H) -2.0 - 2.0 mmol/L 02/22/2021 3:23 AM [facility] Oxyhemoglobin Arterial 96.7 % 02/22/2021 3:23 AM [facility] Dexoyhemoglobin (HHB) % 0.8 % 02/22/2021 3:23 AM [facility] Methemoglobin <0.8 0.0 - 2.0 % 02/22/2021 3:23 AM [facility] Carboxyhemoglobin 2.2(H) 0.0 - 2.0 % 2020 3:23 AM [facility] O2 Content Arterial 19.2 Interpret within clinical context mg/dL 02/22/2021 3:23 AM [facility] Hemoglobin by COOX 14.1 12.0 - 17.6 g/dL 02/22/2021 3:23 AM [facility] O2 Saturation Arterial 99 90 - 100 % 02/22/2021 3:23 AM [facility] FI O2 Arterial 55.0 % 02/22/2021 3:23 AM [facility] Blood, arterial ARTERIAL BLOOD SPECIMEN / Unknown Arterial Puncture / Unknown 02/22/2021 3:17 AM CDT 02/22/2021 3:20 AM CDT [facility] - 02/22/2021 3:23 AM CDT Carboxyhemoglobin Normal Concentration: Non-smokers: 0-2%; Smokers: 0-9%; Toxic: >20% Dino Hudson PA-C LAB - BLOOD GASES ORDERABLES [facility] [address] [place] [address], [facility] [phone] * (ABNORMAL) CBC W AUTO DIFFERENTIAL (02/21/2021 11:12 PM CDT) WBC 14.5(H) 3.5 - 10.5 10? 3 /uL 02/21/2021 11:21 PM [facility] RBC 4.88 4.30 - 5.70 10? 6 /uL 02/21/2021 11:21 PM [facility] Hemoglobin 13.7 12.0 - 17.6 g/dL 02/21/2021 11:21 PM [facility] Hematocrit 41.8 35.2 - 51.7 % 02/21/2021 11:21 PM [facility] MCV 85.7 80.7 - 98.3 fL 02/21/2021 11:21 PM [facility] MCH 28.1 26.7 - 34.0 pg 02/21/2021 11:21 PM [facility] MCHC 32.8 30.8 - 35.9 g/dL 02/21/2021 11:21 PM [facility] Platelet Count 374 150 - 400 10? 3 /uL 02/21/2021 11:21 PM [facility] RDW-SD 42.4 36.0 - 50.0 fL 02/21/2021 11:21 PM [facility] RDW-CV 13.7 11.2 - 14.8 % 02/21/2021 11:21 PM [facility] MPV 9.1(L) 9.4 - 12.9 fL 02/21/2021 11:21 PM [facility] nRBC Absolute 0.00 0 10? 3 /uL 02/21/2021 11:21 PM [facility] nRBC Auto 0.0 0 /100 WBC 02/21/2021 11:21 PM [facility] Neutrophils % 82.8(H) 35.0 - 70.0 % 02/21/2021 11:21 PM [facility] Lymphocytes % 6.9(L) 20.0 - 43.0 % 02/21/2021 11:21 PM [facility] Monocytes % 7.6 5.0 - 13.0 % 02/21/2021 11:21 PM [facility] Eosinophils % 1.0 0.0 - 6.0 % 02/21/2021 11:21 PM [facility] Basophil % 0.3 0.0 - 2.0 % 02/21/2021 11:21 PM [facility] Neutrophils Absolute 12.0(H) 1.6 - 7.0 10? 3 /uL 02/21/2021 11:21 PM [facility] [facility] Lymphocyte Absolute 1.0(L) 1.1 - 3.9 10? 3 /uL 02/21/2021 11:21 PM [facility] Monocytes Absolute 1.10(H) 0.26 - 1.07 10? 3 /uL 02/21/2021 11:21 PM [facility] Eosinophils Absolute 0.14 0.00 - 0.47 10? 3 /uL 02/21/2021 11:21 PM [facility] Basophils Absolute 0.05 0.00 - 0.08 10? 3 /uL 02/21/2021 11:21 PM [facility] Immature Granulocytes % 1.4(H) 0.0 - 1.0 % 02/21/2021 11:21 PM [facility] Immature Granulocytes Absolute 0.21 02/21/2021 11:21 PM [facility] Blood BLOOD SPECIMEN / Unknown Venipuncture / Unknown 02/21/2021 11:12 PM CDT 02/21/2021 11:17 PM CDT Fredy Felipe MD LAB - HEMATOLOGY ORD ERABLES [facility] [address] [place] [address], [facility] [phone] * (ABNORMAL) BASIC METABOLIC PANEL (CALCIUM TOTAL) (02/21/2021 11:12 PM CDT) BUN 15 7 - 26 mg/dL 02/21/2021 11:42 PM [facility] Creatinine 1.13 0.71 - 1.16 mg/dL 02/21/2021 11:42 PM [facility] Sodium 141 136 - 145 mmol/L 02/21/2021 11:42 PM [facility] Potassium 4.3 3.5 - 4.5 mmol/L 02/21/2021 11:42 PM [facility] Chloride 105 98 - 107 mmol/L 02/21/2021 11:42 PM [facility] CO2 22 22 - 29 mmol/L 02/21/2021 11:42 PM [facility] Glucose 126(H) 70 - 115 mg/dL 02/21/2021 11:42 PM [facility] Calcium 8.5 8.4 - 10.2 mg/dL 02/21/2021 11:42 PM [facility] Anion Gap 18 8 - 18 02/21/2021 11:42 PM [facility] BUN/Creatinine Ratio 13 7 - 23 02/21/2021 11:42 PM [facility] Osmolality Calculated 294 270 - 300 mOsm/kg 02/21/2021 11:42 PM [facility] eGFR by CKD-EPI 84(L) >=90 mL/min/1.7 3 m2 02/21/2021 11:42 PM [facility] Blood BLOOD SPECIMEN / Unknown Venipuncture / Unknown 02/21/2021 11:12 PM CDT 02/21/2021 11:16 PM CDT Fredy Felipe MD LAB - CHEMISTRY JOSE ENRIQUE VELA [facility] Organization Address City/State/ZIP Co de Phone Number [facility] [address] [place] [address], [facility] [phone] * (ABNORMAL) BLOOD GASES ART + COOX PANEL (02/21/2021 11:12 PM CDT) pH Arterial 7.60(H) 7.35 - 7.45 pH 02/21/2021 11:20 PM [facility] pO2 Arterial 185(H) 80 - 100 mmHg 02/21/2021 11:20 PM [facility] pCO2 Arterial 26(L) 35 - 45 mmHg 11:20 PM [facility] HCO3 Arterial 26 20 - 30 mmol/l 02/21/2021 11:20 PM [facility] BE Arterial 5.1(H) -2.0 - 2.0 mmol/L 02/21/2021 11:20 PM [facility] Oxyhemoglobin Arterial 97.5 % 02/21/2021 11:20 PM [facility] Dexoyhemoglobin (HHB) % 0.3 % 02/21/2021 11:20 PM [facility] Methemoglobin 0.9 0.0 - 2.0 % 02/21/2021 11:20 PM [facility] Carboxyhemoglobin 1.3 0.0 - 2.0 % 2020 11:20 PM [facility] O2 Content Arterial 20.2 Interpret within clinical context mg/dL 02/21/2021 11:20 PM [facility] Hemoglobin by COOX 14.5 12.0 - 17.6 g/dL 02/21/2021 11:20 PM [facility] O2 Saturation Arterial 100 90 - 100 % 02/21/2021 11:20 PM [facility] FI O2 Arterial 60.0 % 02/21/2021 11:20 PM [facility] Blood, arterial ARTERIAL BLOOD SPECIMEN / Unknown Arterial Puncture / Unknown 02/21/2021 11:12 PM CDT 02/21/2021 11:18 PM CDT Narrative [facility] - 02/21/2021 11:20 PM CDT Carboxyhemoglobin Normal Concentration: Non-smokers: 0-2%; Smokers: 0-9%; Toxic: >20% Fredy Felipe MD LAB - BLOOD GASES OR DERABLES Performing Organization Address [facility] Co de Phone Number [address] [address], [facility] [phone] * (ABNORMAL) PT-INR [facility] (02/21/2021 11:12 PM CDT) PT 15.2(H) 12.1 - 14.8 Seconds 02/21/2021 11:31 PM CDT [facility] INR 1.2 See Comment 02/21/2021 11:31 PM CDT [facility] Comment:The suggested therap eutic range for standard coumadin (warfarin) therapy is an INR of 2.0-3.0. For high-risk patients (Mechanical Mitral Valve Prosthesis, etc.), the suggested prophylactic therapeutic range is an INR of 2.5-3.5. Blood BLOOD SPECIMEN / Unknown Venipuncture / Unknown 02/21/2021 11:12 PM CDT 02/21/2021 11:18 PM CDT Fredy Felipe MD LAB - COAGULATION OR DERABLES Performing Organization Address [facility] Co de Phone Number [address] [address], [facility] [phone] * PHOSPHORUS BLOOD (02/21/2021 11:12 PM CDT) Phosphorus 3.5 2.8 - 5.1 mg/dL 02/21/2021 11:42 PM CDT [facility] Blood BLOOD SPECIMEN / Unknown Venipuncture / Unknown 02/21/2021 11:12 PM CDT 02/21/2021 11:16 PM CDT Fredy Felipe MD LAB - CHEMISTRY JOSE ENRIQUE VELA [address] [address], [place] [phone] * MAGNESIUM BLOOD (02/21/2021 11:12 PM CDT) Magnesium 1.8 1.6 - 2.6 mg/dL 02/21/2021 11:42 PM CDT [facility] Blood BLOOD SPECIMEN / Unknown Venipuncture / Unknown 02/21/2021 11:12 PM CDT 02/21/2021 11:16 PM CDT Fredy Felipe MD LAB - CHEMISTRY JOSE ENRIQUE VELA Performing Organization Address City/[facility]/ZIP Co de Phone Number [address] [address], [place] [phone] * (ABNORMAL) CALCIUM IONIZED WHOLE BLOOD (02/21/2021 11:12 PM CDT) Calcium Ionized 1.10 mmol/L 02/21/2021 11:21 PM CDT [facility] pH 7.62(H) 7.35 - 7.45 pH 02/21/2021 11:21 PM CDT [facility] Ionized Calcium pH Adjusted 1.20 1.19 - 1.34 mmol/L 02/21/2021 11:21 PM CDT [facility] Blood BLOOD SPECIMEN / Unknown Venipuncture / Unknown 02/21/2021 11:12 PM CDT 02/21/2021 11:18 PM CDT Fredy Felipe MD LAB - CHEMISTRY JOSE ENRIQUE VELA [address] [address], [place] [phone] * (ABNORMAL) TRIGLYCERIDES BLOOD (02/21/2021 11:12 PM CDT) Triglycerides 236(H) <150 mg/dL 02/21/2021 11:42 PM CDT [facility] Comment: ATP III Classification of Triglycerides: ?<150 mg/dL: ??Normal ? 150 - 199 mg/dL: ??Borderline High ? 200 - 400 mg/dL: ??High ?>500 mg/dL: ??Very High Blood BLOOD SPECIMEN / Unknown Venipuncture / Unknown 02/21/2021 11:12 PM CDT 02/21/2021 11:16 PM CDT Fredy Felipe MD LAB - CHEMISTRY JOSE ENRIQUE VELA [facility] Organization Address City/State/ZIP Co de Phone Number [facility] [address] [place] [address], [facility] [phone] * XR FOREARM RIGHT 2VW (02/21/2021 9:01 AM CDT) Anatomical Region Laterality Modality Upper Extremity Radiographic Sera ging 02/21/2021 9:07 AM CDT Impressions 02/21/2021 10:41 AM CDT IMPRESSION: No acute radial or ulnar fracture identified. Dictated by Rico Sawant D.O. (Food Safety Specialist) I, Dr. CHOCO JIN MD have personally [...] fracture identified. Dictated by Rico Sawant D.O. (Food Safety Specialist) I, Dr. CHOCO JIN MD have personally [...] are normal. Dictated by Rico Sawant DO (vice president and portfolio manager). Dr. AFRICA Yao M.D. have personally [...] are normal. Dictated by Rico Sawant DO (vice president and portfolio manager). I, Dr. AFRICA HENRIQUEZ M.D. have personally reviewed and interpreted this examination/study. This report was electronically signed by AFRICA HENRIQUEZ M.D. on 02/21/2021 11:05 AM . Fredy Felipe MD DIAGNOSTIC IMAGING O RDERABLES * (ABNORMAL) CBC W AUTO DIFFERENTIAL (02/20/2021 11:26 PM T) WBC 14.6(H) 3.5 - 10.5 10? 3 /uL 02/20/2021 11:36 PM [facility] RBC 5.46 4.30 - 5.70 10? 6 /uL 02/20/2021 11:36 PM [facility] Hemoglobin 15.0 12.0 - 17.6 g/dL 02/20/2021 11:36 PM [facility] Hematocrit 46.7 35.2 - 51.7 % 02/20/2021 11:36 PM [facility] MCV 85.5 80.7 - 98.3 fL 02/20/2021 11:36 PM [facility] MCH 27.5 26.7 - 34.0 pg 02/20/2021 11:36 PM [facility] MCHC 32.1 30.8 - 35.9 g/dL 02/20/2021 11:36 PM [facility] Platelet Count 392 150 - 400 10? 3 /uL 02/20/2021 11:36 PM [facility] RDW-SD 42.8 36.0 - 50.0 fL 02/20/2021 11:36 PM [facility] RDW-CV 13.9 11.2 - 14.8 % 02/20/2021 11:36 PM [facility] MPV 9.0(L) 9.4 - 12.9 fL 02/20/2021 11:36 PM [facility] nRBC Absolute 0.00 0 10? 3 /uL 02/20/2021 11:36 PM [facility] nRBC Auto 0.0 0 /100 WBC 02/20/2021 11:36 PM [facility] Neutrophils % 82.1(H) 35.0 - 70.0 % 02/20/2021 11:36 PM [facility] Lymphocytes % 5.4(L) 20.0 - 43.0 % 02/20/2021 11:36 PM [facility] Monocytes % 9.4 5.0 - 13.0 % 02/20/2021 11:36 PM [facility] Eosinophils % 2.0 0.0 - 6.0 % 02/20/2021 11:36 PM [facility] Basophil % 0.4 0.0 - 2.0 % 02/20/2021 11:36 PM [facility] Neutrophils Absolute 12.0(H) 1.6 - 7.0 10? 3 /uL 02/20/2021 11:36 PM [facility] Lymphocyte Absolute 0.8(L) 1.1 - 3.9 10? 3 /uL 02/20/2021 11:36 PM [facility] Monocytes Absolute 1.37(H) 0.26 - 1.07 10? 3 /uL 02/20/2021 11:36 PM [facility] Eosinophils Absolute 0.29 0.00 - 0.47 10? 3 /uL 02/20/2021 11:36 PM [facility] Basophils Absolute 0.06 0.00 - 0.08 10? 3 /uL 02/20/2021 11:36 PM [facility] Immature Granulocytes % 0.7 0.0 - 1.0 % 02/20/2021 11:36 PM [facility] Immature Granulocytes Absolute 0.10 02/20/2021 11:36 PM [facility] Blood BLOOD SPECIMEN / Unknown Venipuncture / Unknown 02/20/2021 11:26 PM CDT 02/20/2021 11:31 PM CDT Fredy Felipe MD LAB - HEMATOLOGY ORD ERABLES [facility] [address] [place] [address], [facility] [phone] * BASIC METABOLIC PANEL (CALCIUM TOTAL) (02/20/2021 11:26 PM CDT) BUN 12 7 - 26 mg/dL 02/20/2021 11:54 PM [facility] Creatinine 0.75 0.71 - 1.16 mg/dL 02/20/2021 11:54 PM [facility] Sodium 142 136 - 145 mmol/L 02/20/2021 11:54 PM [facility] Potassium 4.0 3.5 - 4.5 mmol/L 02/20/2021 11:54 PM [facility] Chloride 105 98 - 107 mmol/L 02/20/2021 11:54 PM [facility] CO2 26 22 - 29 mmol/L 02/20/2021 11:54 PM [facility] Glucose 106 70 - 115 mg/dL 02/20/2021 11:54 PM [facility] Calcium 8.8 8.4 - 10.2 mg/dL 02/20/2021 11:54 PM [facility] Anion Gap 15 8 - 18 02/20/2021 11:54 PM [facility] BUN/Creatinine Ratio 16 7 - 23 02/20/2021 11:54 PM [facility] Osmolality Calculated 294 270 - 300 mOsm/kg 02/20/2021 11:54 PM [facility] eGFR by CKD-EPI >90 >=90 mL/min/1.7 3 m2 02/20/2021 11:54 PM [facility] Blood BLOOD SPECIMEN / Unknown Venipuncture / Unknown 02/20/2021 11:26 PM CDT 02/20/2021 11:30 PM CDT Fredy Felipe MD LAB - CHEMISTRY JOSE ENRIQUE Pena Organization Address City/State/ZIP Co de Phone Number [facility] [address] [place] [address], [facility] [phone] * (ABNORMAL) BLOOD GASES ART + COOX PANEL (02/20/2021 11:26 PM CDT) pH Arterial 7.41 7.35 - 7.45 pH 02/20/2021 11:32 PM [facility] pO2 Arterial 131(H) 80 - 100 mmHg 02/20/2021 11:32 PM [facility] pCO2 Arterial 40 35 - 45 mmHg 11:32 PM [facility] HCO3 Arterial 25 20 - 30 mmol/l 02/20/2021 11:32 PM [facility] BE Arterial 0.7 -2.0 - 2.0 mmol/L 02/20/2021 11:32 PM [facility] Oxyhemoglobin Arterial 96.8 % 02/20/2021 11:32 PM [facility] Dexoyhemoglobin (HHB) % 0.0 % 02/20/2021 11:32 PM [facility] Methemoglobin <0.8 0.0 - 2.0 % 02/20/2021 11:32 PM [facility] Carboxyhemoglobin 2.7(H) 0.0 - 2.0 % 2020 11:32 PM [facility] O2 Content Arterial 21.3 Interpret within clinical context mg/dL 02/20/2021 11:32 PM [facility] Hemoglobin by COOX 15.5 12.0 - 17.6 g/dL 02/20/2021 11:32 PM [facility] O2 Saturation Arterial 100 90 - 100 % 02/20/2021 11:32 PM [facility] FI O2 Arterial 100.0 % 02/20/2021 11:32 PM [facility] Blood, arterial ARTERIAL BLOOD SPECIMEN / Unknown Arterial Puncture / Unknown 02/20/2021 11:26 PM CDT 02/20/2021 11:30 PM CDT Narrative [facility] - 02/20/2021 11:32 PM CDT Carboxyhemoglobin Normal Concentration: Non-smokers: 0-2%; Smokers: 0-9%; Toxic: >20% Fredy Felipe MD LAB - BLOOD GASES OR DERABLES Performing Organization Address [facility] Co de Phone Number [address] [address], [facility] [phone] * PT-INR [facility] (02/20/2021 11:26 PM CDT) PT 14.8 12.1 - 14.8 Seconds 02/20/2021 11:45 PM CDT [facility] INR 1.2 See Comment 02/20/2021 11:45 PM CDT [facility] Comment:The suggested therap eutic range for standard coumadin (warfarin) therapy is an INR of 2.0-3.0. For high-risk patients (Mechanical Mitral Valve Prosthesis, etc.), the suggested prophylactic therapeutic range is an INR of 2.5-3.5. Blood BLOOD SPECIMEN / Unknown Venipuncture / Unknown 02/20/2021 11:26 PM CDT 02/20/2021 11:30 PM CDT Fredy Felipe MD LAB - COAGULATION OR DERABLES Performing Organization Address [facility] Co de Phone Number [address] [address], [facility] [phone] * PHOSPHORUS BLOOD (02/20/2021 11:26 PM CDT) Phosphorus 4.6 2.8 - 5.1 mg/dL 02/20/2021 11:54 PM CDT [facility] Blood BLOOD SPECIMEN / Unknown Venipuncture / Unknown 02/20/2021 11:26 PM CDT 02/20/2021 11:30 PM CDT Fredy Felipe MD LAB - CHEMISTRY JOSE ENRIQUE VELA Performing Organization Address City/[facility]/ZIP Co de Phone Number [address] [address], [place] [phone] * MAGNESIUM BLOOD (02/20/2021 11:26 PM CDT) Magnesium 2.0 1.6 - 2.6 mg/dL 02/20/2021 11:54 PM CDT [facility] Blood BLOOD SPECIMEN / Unknown Venipuncture / Unknown 02/20/2021 11:26 PM CDT 02/20/2021 11:30 PM CDT Fredy Felipe MD LAB - CHEMISTRY JOSE ENRIQUE VELA [address] [address], [place] [phone] * (ABNORMAL) CALCIUM IONIZED WHOLE BLOOD (02/20/2021 11:26 PM CDT) Calcium Ionized 1.14 mmol/L 02/20/2021 11:32 PM CDT [facility] pH 7.41 7.35 - 7.45 pH 02/20/2021 11:32 PM CDT [facility] Ionized Calcium pH Adjusted 1.14(L) 1.19 - 1.34 mmol/L 02/20/2021 11:32 PM CDT [facility] Blood BLOOD SPECIMEN / Unknown Venipuncture / Unknown 02/20/2021 11:26 PM CDT 02/20/2021 11:30 PM CDT Fredy Felipe MD LAB - CHEMISTRY JOSE ENRIQUE VELA [address] [address], [place] [phone] * XR CHEST 1VW PORTABLE (02/20/2021 1:56 PM CDT) Anatomical Region Laterality Modality Chest Radiographic Sera ging 02/20/2021 3:53 PM CDT Impressions 02/20/2021 4:27 PM CDT FINDINGS/IMPRESSION: Lines and tubes: *Endotracheal tube terminates in mid thoracic trachea. *There is an NG/OG coursing below the diaphragm, terminus outside the uyaup-fb-goda. *There is a left subclavian approach central [...] is stable. Dictated by Rico Sawant DO (vice president and portfolio manager). I, Dr. AFRICA HENRIQUEZ M.D. have [...] coursing below the diaphragm, terminus outside the orkwn-oy-rson. *There is a left subclavian approach central [...] is stable. Dictated by Rico Sawant DO (vice president and portfolio manager). I, Dr. AFRICA HENRIQUEZ M.D. have [...] below the diaphragm, the segments of the heewl-xy-wkxe. *There is a left subclavian approach central [...] is stable. Dictated by Phan Brothers MD (vice president and portfolio manager). I, Dr. SUNITA BAILEY have personally [...] below the diaphragm, the segments of the asbzk-or-flsx. *There is a left subclavian approach central [...] is stable. Dictated by Phan Brothers MD (vice president and portfolio manager). I, Dr. SUNITA BAILEY have personally reviewed and interpreted this examination/study. This report was electronically signed by SUNITA BAILEY on 13:06 PM . Fredy Felipe MD DIAGNOSTIC IMAGING O RDERABLES * BLOOD GASES ART + COOX PANEL (02/20/2021 3:07 AM [facility]) pH Arterial 7.41 7.35 - 7.45 pH 02/20/2021 3:12 AM [facility] pO2 Arterial 88 80 - 100 mmHg 02/20/2021 3:12 AM [facility] pCO2 Arterial 41 35 - 45 mmHg 3:12 AM [facility] HCO3 Arterial 26 20 - 30 mmol/l 02/20/2021 3:12 AM [facility] BE Arterial 1.2 -2.0 - 2.0 mmol/L 02/20/2021 3:12 AM [facility] Oxyhemoglobin Arterial 96.0 % 02/20/2021 3:12 AM [facility] Dexoyhemoglobin (HHB) % 1.4 % 02/20/2021 3:12 AM [facility] Methemoglobin 0.9 0.0 - 2.0 % 02/20/2021 3:12 AM [facility] Carboxyhemoglobin 1.7 0.0 - 2.0 % 2020 3:12 AM T [facility] O2 Content Arterial 18.7 Interpret within clinical context mg/dL 02/20/2021 3:12 AM [facility] Hemoglobin by COOX 13.8 12.0 - 17.6 g/dL 02/20/2021 3:12 AM [facility] O2 Saturation Arterial 99 90 - 100 % 02/20/2021 3:12 AM [facility] FI O2 Arterial 60.0 % 02/20/2021 3:12 AM [facility] Blood, arterial ARTERIAL BLOOD SPECIMEN / Unknown Arterial Puncture / Unknown 02/20/2021 3:07 AM CDT 02/20/2021 3:10 AM T [facility] - 02/20/2021 3:12 AM CDT Carboxyhemoglobin Normal Concentration: Non-smokers: 0-2%; Smokers: 0-9%; Toxic: >20% Delilah JEFFERY TRAINING ANALYST LAB - BLOOD GASES ORDERABLES [facility] [address] [place] [address], [facility] [phone] * (ABNORMAL) CBC W AUTO DIFFERENTIAL (02/19/2021 11:36 PM CDT) WBC 13.2(H) 3.5 - 10.5 10? 3 /uL 02/19/2021 11:45 PM [facility] RBC 4.92 4.30 - 5.70 10? 6 /uL 02/19/2021 11:45 PM [facility] Hemoglobin 13.8 12.0 - 17.6 g/dL 02/19/2021 11:45 PM [facility] Hematocrit 42.3 35.2 - 51.7 % 02/19/2021 11:45 PM [facility] MCV 86.0 80.7 - 98.3 fL 02/19/2021 11:45 PM [facility] MCH 28.0 26.7 - 34.0 pg 02/19/2021 11:45 PM [facility] MCHC 32.6 30.8 - 35.9 g/dL 02/19/2021 11:45 PM [facility] Platelet Count 371 150 - 400 10? 3 /uL 02/19/2021 11:45 PM [facility] RDW-SD 43.7 36.0 - 50.0 fL 02/19/2021 11:45 PM [facility] RDW-CV 13.8 11.2 - 14.8 % 02/19/2021 11:45 PM [facility] MPV 8.8(L) 9.4 - 12.9 fL 02/19/2021 11:45 PM [facility] nRBC Absolute 0.00 0 10? 3 /uL 02/19/2021 11:45 PM [facility] nRBC Auto 0.0 0 /100 WBC 02/19/2021 11:45 PM [facility] Neutrophils % 78.5(H) 35.0 - 70.0 % 02/19/2021 11:45 PM [facility] Lymphocytes % 8.3(L) 20.0 - 43.0 % 02/19/2021 11:45 PM [facility] Monocytes % 10.4 5.0 - 13.0 % 02/19/2021 11:45 PM [facility] Eosinophils % 1.6 0.0 - 6.0 % 02/19/2021 11:45 PM [facility] Basophil % 0.4 0.0 - 2.0 % 02/19/2021 11:45 PM [facility] Neutrophils Absolute 10.4(H) 1.6 - 7.0 10? 3 /uL 02/19/2021 11:45 PM [facility] Lymphocyte Absolute 1.1 1.1 - 3.9 10? 3 /uL 02/19/2021 11:45 PM [facility] Monocytes Absolute 1.37(H) 0.26 - 1.07 10? 3 /uL 02/19/2021 11:45 PM [facility] Eosinophils Absolute 0.21 0.00 - 0.47 10? 3 /uL 02/19/2021 11:45 PM [facility] Basophils Absolute 0.05 0.00 - 0.08 10? 3 /uL 02/19/2021 11:45 PM [facility] Immature Granulocytes % 0.8 0.0 - 1.0 % 02/19/2021 11:45 PM [facility] Immature Granulocytes Absolute 0.11 02/19/2021 11:45 PM [facility] Blood BLOOD SPECIMEN / Unknown Venipuncture / Unknown 02/19/2021 11:36 PM CDT 02/19/2021 11:41 PM CDT Fredy Felipe MD LAB - HEMATOLOGY ORD ERABLES [facility] [address] [place] [phone], [facility] [phone] * BASIC METABOLIC PANEL (CALCIUM TOTAL) (02/19/2021 11:36 PM CDT) BUN 10 7 - 26 mg/dL 02/20/2021 12:08 AM [facility] Creatinine 0.72 0.71 - 1.16 mg/dL 02/20/2021 12:08 AM [facility] Sodium 140 136 - 145 mmol/L 02/20/2021 12:08 AM [facility] Potassium 4.3 3.5 - 4.5 mmol/L 02/20/2021 12:08 AM [facility] Chloride 105 98 - 107 mmol/L 02/20/2021 12:08 AM [facility] CO2 25 22 - 29 mmol/L 02/20/2021 12:08 AM [facility] Glucose 92 70 - 115 mg/dL 02/20/2021 12:08 AM [facility] Calcium 8.9 8.4 - 10.2 mg/dL 02/20/2021 12:08 AM [facility] Anion Gap 14 8 - 18 02/20/2021 12:08 AM [facility] BUN/Creatinine Ratio 14 7 - 23 02/20/2021 12:08 AM [facility] Osmolality Calculated 289 270 - 300 mOsm/kg 02/20/2021 12:08 AM [facility] eGFR by CKD-EPI >90 >=90 mL/min/1.7 3 m2 02/20/2021 12:08 AM [facility] Blood BLOOD SPECIMEN / Unknown Venipuncture / Unknown 02/19/2021 11:36 PM CDT 02/19/2021 11:41 PM CDT Fredy Felipe MD LAB - CHEMISTRY [facility] Organization Address City/State/ZIP Co de Phone Number [facility] [address] [place] [address], [facility] [phone] * BLOOD GASES ART + COOX PANEL (02/19/2021 11:36 PM CDT) pH Arterial 7.42 7.35 - 7.45 pH 02/19/2021 11:42 PM [facility] pO2 Arterial 93 80 - 100 mmHg 02/19/2021 11:42 PM [facility] pCO2 Arterial 41 35 - 45 mmHg 11:42 PM [facility] HCO3 Arterial 27 20 - 30 mmol/l 02/19/2021 11:42 PM [facility] BE Arterial 1.9 -2.0 - 2.0 mmol/L 02/19/2021 11:42 PM [facility] Oxyhemoglobin Arterial 96.2 % 02/19/2021 11:42 PM [facility] Dexoyhemoglobin (HHB) % 1.5 % 02/19/2021 11:42 PM [facility] Methemoglobin 1.0 0.0 - 2.0 % 02/19/2021 11:42 PM [facility] Carboxyhemoglobin 1.4 0.0 - 2.0 % 2020 11:42 PM [facility] O2 Content Arterial 19.5 Interpret within clinical context mg/dL 02/19/2021 11:42 PM [facility] Hemoglobin by COOX 14.4 12.0 - 17.6 g/dL 02/19/2021 11:42 PM [facility] O2 Saturation Arterial 99 90 - 100 % 02/19/2021 11:42 PM CDT [facility] FI O2 Arterial 50.0 % 02/19/2021 11:42 PM CDT [facility] Blood, arterial ARTERIAL BLOOD SPECIMEN / Unknown Arterial Puncture / Unknown 02/19/2021 11:36 PM CDT 02/19/2021 11:40 PM CDT Narrative [facility] - 02/19/2021 11:42 PM CDT Carboxyhemoglobin Normal Concentration: Non-smokers: 0-2%; Smokers: 0-9%; Toxic: >20% Fredy Felipe MD LAB - BLOOD GASES OR DERABLES Performing Organization Address City/[facility]/ZIP Co de Phone Number [address] [address], [facility] [phone] * PT-INR [facility] (02/19/2021 11:36 PM CDT) PT 14.1 12.1 - 14.8 Seconds 02/19/2021 11:53 PM T [facility] INR 1.1 See Comment 02/19/2021 11:53 PM T [facility] Comment:The suggested therap eutic range for standard coumadin (warfarin) therapy is an INR of 2.0-3.0. For high-risk patients (Mechanical Mitral Valve Prosthesis, etc.), the suggested prophylactic therapeutic range is an INR of 2.5-3.5. Blood BLOOD SPECIMEN / Unknown Venipuncture / Unknown 02/19/2021 11:36 PM CDT 02/19/2021 11:44 PM CDT Fredy Felipe MD LAB - COAGULATION OR DERABLES [address] [address], [facility] [phone] * PHOSPHORUS BLOOD (02/19/2021 11:36 PM CDT) Phosphorus 3.8 2.8 - 5.1 mg/dL 02/20/2021 12:08 AM CDT [facility] Blood BLOOD SPECIMEN / Unknown Venipuncture / Unknown 02/19/2021 11:36 PM CDT 02/19/2021 11:41 PM CDT Fredy Felipe MD LAB - CHEMISTRY [facility] ENRI[facility]ELA Performing Organization Address City/[facility]/ZIP Co de Phone Number [address] [address], [place] [phone] * MAGNESIUM BLOOD (02/19/2021 11:36 PM CDT) Magnesium 1.9 1.6 - 2.6 mg/dL 02/20/2021 12:08 AM CDT [facility] Blood BLOOD SPECIMEN / Unknown Venipuncture / Unknown 02/19/2021 11:36 PM CDT 02/19/2021 11:41 PM CDT Fredy Felipe MD LAB - CHEMISTRY [facility] ENRIQUE [facility]ELA Performing Organization Address City/[facility]/ZIP Co de Phone Number [address] [address], [place] [phone] * CALCIUM IONIZED WHOLE BLOOD (02/19/2021 11:36 PM CDT) Calcium Ionized 1.20 mmol/L 02/19/2021 11:43 PM CDT [facility] pH 7.43 7.35 - 7.45 pH 02/19/2021 11:43 PM CDT [facility] Ionized Calcium pH Adjusted 1.21 1.19 - 1.34 mmol/L 02/19/2021 11:43 PM CDT [facility] Blood BLOOD SPECIMEN / Unknown Venipuncture / Unknown 02/19/2021 11:36 PM CDT 02/19/2021 11:40 PM CDT Fredy Felipe MD LAB - CHEMISTRY JOSE ENRIQUE [facility]ELA Performing Organization Address City/[facility]/ZIP Co de Phone Number [address] [address], [place] [phone] * XR CHEST 1VW PORTABLE (02/19/2021 5:10 [...] is normal. Dictated by Rico Sawant DO (vice president and portfolio manager). I, Dr. NAOMY LAZO MD, [facility] have personally reviewed and interpreted this examination/study. This report was electronically signed by NAOMY LAZO MD, [facility] ??on 02/20/2021 2:18 PM . Narrative [...] is normal. Dictated by Rico Sawant DO (vice president and portfolio manager). IDr. NAOMY MD, [facility] have personally reviewedand interpreted this examination/study. This report was electronically signed by NAOMY LAZO MD, [facility] on 02/20/2021 2:18 PM . Fredy [...] Dr. Carrion Dictated by Bety Rose MD (vice president and portfolio manager). This report was approved ??by Bety [...] Dr. Carrion Dictated by Bety Rose MD (vice president and portfolio manager). This report was approved by Bety Rose on 02/20/2021 11:19 AM . I, Dr. JASWINDER CARRION have personally reviewed and interpreted this examination/study. This report was electronically signed by JASWINDER CARRION on02/20/2021 11:38 AM . Fredy Felipe MD MR ORDERABLES * TYPE + SCREEN PANEL (02/19/2021 7:27 AM CDT) Antibody Screen NEG 8:50 AM CDT [facility] ABO Rh O POS 02/19/2021 8:50 AM CDT [facility] Blood Bank BLOOD SPECIMEN / Unknown Venipuncture / Unknown 02/19/2021 7:27 AM CDT 02/19/2021 7:34 AM CDT Fredy Felipe MD LAB - BLOOD BANK ORD ERABLES [facility] [address] [place] [address], [facility] [phone] * XR CHEST 1VW PORTABLE (02/19/2021 5:26 [...] is normal. Dictated by Rico Sawant DO (vice president and portfolio manager). I, Dr. OSWALDO CLEMONS have personally [...] is normal. Dictated by Rico Sawant DO (vice president and portfolio manager). Dr. OSWALDO Yao have personally reviewed and interpreted this examination/study. This report was electronically signed by OSWALDO CLEMONS on 02/19/2021 3:43PM . Fredy Felipe MD DIAGNOSTIC IMAGING O RDERABLES * (ABNORMAL) CBC W AUTO DIFFERENTIAL (02/18/2021 11:03 PM [facility]) WBC 11.9(H) 3.5 - 10.5 10? 3 /uL 02/18/2021 11:19 PM [facility] RBC 4.74 4.30 - 5.70 10? 6 /uL 02/18/2021 11:19 PM [facility] Hemoglobin 13.1 12.0 - 17.6 g/dL 02/18/2021 11:19 PM [facility] Hematocrit 40.4 35.2 - 51.7 % 02/18/2021 11:19 PM [facility] MCV 85.2 80.7 - 98.3 fL 02/18/2021 11:19 PM [facility] MCH 27.6 26.7 - 34.0 pg 02/18/2021 11:19 PM [facility] MCHC 32.4 30.8 - 35.9 g/dL 02/18/2021 11:19 PM [facility] Platelet Count 325 150 - 400 10? 3 /uL 02/18/2021 11:19 PM [facility] RDW-SD 43.3 36.0 - 50.0 fL 02/18/2021 11:19 PM [facility] RDW-CV 14.0 11.2 - 14.8 % 02/18/2021 11:19 PM [facility] MPV 9.2(L) 9.4 - 12.9 fL 02/18/2021 11:19 PM [facility] nRBC Absolute 0.00 0 10? 3 /uL 02/18/2021 11:19 PM [facility] nRBC Auto 0.0 0 /100 WBC 02/18/2021 11:19 PM [facility] Neutrophils % 79.2(H) 35.0 - 70.0 % 02/18/2021 11:19 PM [facility] Lymphocytes % 10.3(L) 20.0 - 43.0 % 02/18/2021 11:19 PM [facility] Monocytes % 9.5 5.0 - 13.0 % 02/18/2021 11:19 PM CDT [facility] Eosinophils % 0.3 0.0 - 6.0 % 02/18/2021 11:19 PM [facility] Basophil % 0.2 0.0 - 2.0 % 02/18/2021 11:19 PM [facility] Neutrophils Absolute 9.4(H) 1.6 - 7.0 10? 3 /uL 02/18/2021 11:19 PM T [facility] Lymphocyte Absolute 1.2 1.1 - 3.9 10? 3 /uL 02/18/2021 11:19 PM [facility] Monocytes Absolute 1.13(H) 0.26 - 1.07 10? 3 /uL 02/18/2021 11:19 PM [facility] Eosinophils Absolute 0.04 0.00 - 0.47 10? 3 /uL 02/18/2021 11:19 PM [facility] Basophils Absolute 0.02 0.00 - 0.08 10? 3 /uL 02/18/2021 11:19 PM [facility] Immature Granulocytes % 0.5 0.0 - 1.0 % 02/18/2021 11:19 PM [facility] Immature Granulocytes Absolute 0.06 02/18/2021 11:19 PM [facility] Blood BLOOD SPECIMEN / Unknown Venipuncture / Unknown 02/18/2021 11:03 PM CDT 02/18/2021 11:08 PM CDT Fredy Felipe MD LAB - HEMATOLOGY ORD ERABLES [facility] [address] [place] [address], [facility] [phone] * (ABNORMAL) BASIC METABOLIC PANEL (CALCIUM TOTAL) (02/18/2021 11:03 PM CDT) BUN 9 7 - 26 mg/dL 02/18/2021 11:32 PM CDT [facility] Creatinine 0.75 0.71 - 1.16 mg/dL 02/18/2021 11:32 PM [facility] Sodium 142 136 - 145 mmol/L 02/18/2021 11:32 PM [facility] Potassium 3.9 3.5 - 4.5 mmol/L 02/18/2021 11:32 PM [facility] Chloride 108(H) 98 - 107 mmol/L 02/18/2021 11:32 PM [facility] CO2 25 22 - 29 mmol/L 02/18/2021 11:32 PM [facility] Glucose 92 70 - 115 mg/dL 02/18/2021 11:32 PM [facility] Calcium 8.4 8.4 - 10.2 mg/dL 02/18/2021 11:32 PM [facility] Anion Gap 13 8 - 18 02/18/2021 11:32 PM [facility] BUN/Creatinine Ratio 12 7 - 23 02/18/2021 11:32 PM [facility] Osmolality Calculated 292 270 - 300 mOsm/kg 02/18/2021 11:32 PM [facility] eGFR by CKD-EPI >90 >=90 mL/min/1.7 3 m2 02/18/2021 11:32 PM [facility] Blood BLOOD SPECIMEN / Unknown Venipuncture / Unknown 02/18/2021 11:03 PM CDT 02/18/2021 11:08 PM CDT Fredy Felipe MD LAB - CHEMISTRY JOSE ENRIQUE VELA [facility] Organization Address City/State/ZIP Co de Phone Number [facility] [address] [place] [address], [facility] [phone] * (ABNORMAL) BLOOD GASES ART + COOX PANEL (02/18/2021 11:03 PM CDT) pH Arterial 7.46(H) 7.35 - 7.45 pH 02/18/2021 11:11 PM [facility] pO2 Arterial 145(H) 80 - 100 mmHg 02/18/2021 11:11 PM [facility] pCO2 Arterial 37 35 - 45 mmHg 11:11 PM [facility] HCO3 Arterial 26 20 - 30 mmol/l 02/18/2021 11:11 PM [facility] BE Arterial 2.5(H) -2.0 - 2.0 mmol/L 02/18/2021 11:11 PM [facility] Oxyhemoglobin Arterial 97.5 % 02/18/2021 11:11 PM [facility] Dexoyhemoglobin (HHB) % 0.1 % 02/18/2021 11:11 PM [facility] Methemoglobin <0.8 0.0 - 2.0 % 02/18/2021 11:11 PM [facility] Carboxyhemoglobin 1.7 0.0 - 2.0 % 2020 11:11 PM [facility] O2 Content Arterial 18.8 Interpret within clinical context mg/dL 02/18/2021 11:11 PM [facility] Hemoglobin by COOX 13.5 12.0 - 17.6 g/dL 02/18/2021 11:11 PM [facility] O2 Saturation Arterial 100 90 - 100 % 02/18/2021 11:11 PM [facility] FI O2 Arterial 40.0 % 02/18/2021 11:11 PM [facility] Blood, arterial ARTERIAL BLOOD SPECIMEN / Unknown Arterial Puncture / Unknown 02/18/2021 11:03 PM T 02/18/2021 11:08 PM [facility] - 02/18/2021 11:11 PM [facility] Carboxyhemoglobin Normal Concentration: Non-smokers: 0-2%; Smokers: 0-9%; Toxic: >20% Fredy Felipe MD LAB - BLOOD GASES OR DERABLES [facility] [address] [place] [address], [facility] [phone] * PT-INR [facility] (02/18/2021 11:03 PM T) PT 14.1 12.1 - 14.8 Seconds 02/18/2021 11:23 PM [facility] INR 1.1 See Comment 02/18/2021 11:23 PM CDT [facility] Comment:The suggested therap eutic range for standard coumadin (warfarin) therapy is an INR of 2.0-3.0. For high-risk patients (Mechanical Mitral Valve Prosthesis, etc.), the suggested prophylactic therapeutic range is an INR of 2.5-3.5. Blood BLOOD SPECIMEN / Unknown Venipuncture / Unknown 02/18/2021 11:03 PM CDT 02/18/2021 11:08 PM CDT Fredy Felipe MD LAB - COAGULATION OR DERABLES Performing Organization Address [facility]/ZIP Co de Phone Number [address] [address], [facility] [phone] * (ABNORMAL) PHOSPHORUS BLOOD (02/18/2021 11:03 PM CDT) Phosphorus 2.3(L) 2.8 - 5.1 mg/dL 02/18/2021 11:33 PM CDT [facility] Blood BLOOD SPECIMEN / Unknown Venipuncture / Unknown 02/18/2021 11:03 PM CDT 02/18/2021 11:08 PM CDT Fredy Felipe MD LAB - CHEMISTRY JOSE ENRIQUE VELA Performing Organization Address [facility] Co de Phone Number [address] [address], [facility] [phone] * MAGNESIUM BLOOD (02/18/2021 11:03 PM CDT) Magnesium 1.7 1.6 - 2.6 mg/dL 02/18/2021 11:32 PM CDT [facility] Blood BLOOD SPECIMEN / Unknown Venipuncture / Unknown 02/18/2021 11:03 PM CDT 02/18/2021 11:08 PM CDT Fredy Felipe MD LAB - CHEMISTRY JOSE ENRIQUE VELA Performing Organization Address City/[facility]/ZIP Co de Phone Number [address] [address] [phone] * (ABNORMAL) CALCIUM IONIZED WHOLE BLOOD (02/18/2021 11:03 PM CDT) Calcium Ionized 1.15 mmol/L 02/18/2021 11:10 PM CDT [facility] pH 7.45 7.35 - 7.45 pH 02/18/2021 11:10 PM CDT [facility] Ionized Calcium pH Adjusted 1.17(L) 1.19 - 1.34 mmol/L 02/18/2021 11:10 PM CDT [facility] Blood BLOOD SPECIMEN / Unknown Venipuncture / Unknown 02/18/2021 11:03 PM CDT 02/18/2021 11:08 PM CDT Fredy Felipe MD LAB - CHEMISTRY JOSE ENRIQUE VELA [facility] Organization Address City/State/ZIP Co de Phone Number [facility] [address] [place] [address], [facility] [phone] * XR CHEST 1VW PORTABLE (02/18/2021 5:25 AM CDT) Anatomical Region Laterality Modality Chest Radiographic Sera ging 02/18/2021 2:01 PM CDT Impressions 02/18/2021 4:01 PM CDT IMPRESSION: 1.Support devices as above. 2.Bilateral pulmonary opacities redemonstrated. Report dictated by Simone Alexander MD, PhD (vice president and portfolio manager). I, Dr. CHOCO JIN MD have [...] Report dictated by Simone Alexander MD, PhD (vice president and portfolio manager). I, Dr. CHOCO JIN MD have personally reviewed and interpreted this examination/study. This report was electronically signed by CHOCO JIN MD on02/18/2021 4:01 PM . Fredy Felipe MD DIAGNOSTIC IMAGING O RDERABLES * (ABNORMAL) CBC W AUTO DIFFERENTIAL (02/18/2021 12:04 AM CDT) WBC 16.3(H) 3.5 - 10.5 10? 3 /uL 02/18/2021 12:16 AM [facility] RBC 4.69 4.30 - 5.70 10? 6 /uL 02/18/2021 12:16 AM [facility] Hemoglobin 13.1 12.0 - 17.6 g/dL 02/18/2021 12:16 AM [facility] Hematocrit 40.9 35.2 - 51.7 % 02/18/2021 12:16 AM [facility] MCV 87.2 80.7 - 98.3 fL 02/18/2021 12:16 AM [facility] MCH 27.9 26.7 - 34.0 pg 02/18/2021 12:16 AM [facility] MCHC 32.0 30.8 - 35.9 g/dL 02/18/2021 12:16 AM [facility] Platelet Count 292 150 - 400 10? 3 /uL 02/18/2021 12:16 AM [facility] RDW-SD 45.6 36.0 - 50.0 fL 02/18/2021 12:16 AM [facility] RDW-CV 14.2 11.2 - 14.8 % 02/18/2021 12:16 AM [facility] MPV 9.4 9.4 - 12.9 fL 02/18/2021 12:16 AM [facility] nRBC Absolute 0.00 0 10? 3 /uL 02/18/2021 12:16 AM [facility] nRBC Auto 0.0 0 /100 WBC 02/18/2021 12:16 AM [facility] Neutrophils % 85.7(H) 35.0 - 70.0 % 02/18/2021 12:16 AM [facility] Lymphocytes % 6.2(L) 20.0 - 43.0 % 02/18/2021 12:16 AM [facility] Monocytes % 7.4 5.0 - 13.0 % 02/18/2021 12:16 AM [facility] Eosinophils % 0.0 0.0 - 6.0 % 02/18/2021 12:16 AM [facility] Basophil % 0.2 0.0 - 2.0 % 02/18/2021 12:16 AM [facility] Neutrophils Absolute 13.9(H) 1.6 - 7.0 10? 3 /uL 02/18/2021 12:16 AM [facility] Lymphocyte Absolute 1.0(L) 1.1 - 3.9 10? 3 /uL 02/18/2021 12:16 AM [facility] Monocytes Absolute 1.21(H) 0.26 - 1.07 10? 3 /uL 02/18/2021 12:16 AM [facility] Eosinophils Absolute 0.00 0.00 - 0.47 10? 3 /uL 02/18/2021 12:16 AM [facility] Basophils Absolute 0.03 0.00 - 0.08 10? 3 /uL 02/18/2021 12:16 AM [facility] Immature Granulocytes % 0.5 0.0 - 1.0 % 02/18/2021 12:16 AM [facility] Immature Granulocytes Absolute 0.08 02/18/2021 12:16 AM [facility] Blood BLOOD SPECIMEN / Unknown Venipuncture / Unknown 02/18/2021 12:04 AM CDT 02/18/2021 12:08 AM CDT Fredy Felipe MD LAB - HEMATOLOGY ORD ERABLES Performing Organization Address City/State/[facility] Co de Phone Number [facility] [address] [place] [address], [facility] [phone] * BASIC METABOLIC PANEL (CALCIUM TOTAL) (02/18/2021 12:04 AM CDT) BUN 11 7 - 26 mg/dL 02/18/2021 12:32 AM [facility] Creatinine 0.83 0.71 - 1.16 mg/dL 02/18/2021 12:32 AM [facility] Sodium 140 136 - 145 mmol/L 02/18/2021 12:32 AM [facility] Potassium 4.2 3.5 - 4.5 mmol/L 02/18/2021 12:32 AM [facility] Chloride 106 98 - 107 mmol/L 02/18/2021 12:32 AM [facility] CO2 24 22 - 29 mmol/L 02/18/2021 12:32 AM [facility] Glucose 102 70 - 115 mg/dL 02/18/2021 12:32 AM [facility] Calcium 8.6 8.4 - 10.2 mg/dL 02/18/2021 12:32 AM [facility] Anion Gap 14 8 - 18 02/18/2021 12:32 AM [facility] BUN/Creatinine Ratio 13 7 - 23 02/18/2021 12:32 AM [facility] Osmolality Calculated 290 270 - 300 mOsm/kg 02/18/2021 12:32 AM [facility] eGFR by CKD-EPI >90 >=90 mL/min/1.7 3 m2 02/18/2021 12:32 AM [facility] Blood BLOOD SPECIMEN / Unknown Venipuncture / Unknown 02/18/2021 12:04 AM T 02/18/2021 12:08 AM [facility] Fredy Felipe MD LAB - CHEMISTRY JOSE ENRIQUE VELA [facility] Organization Address City/State/ZIP Co de Phone Number [facility] [address] [place] [address], [facility] [phone] * (ABNORMAL) BLOOD GASES ART + COOX PANEL (02/18/2021 12:04 AM [facility]) pH Arterial 7.40 7.35 - 7.45 pH 02/18/2021 12:11 AM [facility] pO2 Arterial 126(H) 80 - 100 mmHg 02/18/2021 12:11 AM [facility] pCO2 Arterial 42 35 - 45 mmHg 12:11 AM [facility] HCO3 Arterial 26 20 - 30 mmol/l 02/18/2021 12:11 AM [facility] BE Arterial 1.0 -2.0 - 2.0 mmol/L 02/18/2021 12:11 AM [facility] Oxyhemoglobin Arterial 97.0 % 02/18/2021 12:11 AM [facility] Dexoyhemoglobin (HHB) % 0.7 % 02/18/2021 12:11 AM [facility] Methemoglobin 1.0 0.0 - 2.0 % 02/18/2021 12:11 AM [facility] Carboxyhemoglobin 1.3 0.0 - 2.0 % 2020 12:11 AM [facility] O2 Content Arterial 18.7 Interpret within clinical context mg/dL 02/18/2021 12:11 AM [facility] Hemoglobin by COOX 13.6 12.0 - 17.6 g/dL 02/18/2021 12:11 AM [facility] O2 Saturation Arterial 99 90 - 100 % 02/18/2021 12:11 AM [facility] FI O2 Arterial 60.0 % 02/18/2021 12:11 AM [facility] Blood, arterial ARTERIAL BLOOD SPECIMEN / Unknown Arterial Puncture / Unknown 02/18/2021 12:04 AM [facility] 02/18/2021 12:06 AM [facility] - 02/18/2021 12:11 AM [facility] Carboxyhemoglobin Normal Concentration: Non-smokers: 0-2%; Smokers: 0-9%; Toxic: >20% Fredy Felipe MD LAB - BLOOD GASES OR DERABLES Performing Organization Address City/State/[facility] Co de Phone Number [facility] [address] [place] [address], [facility] [phone] * PT-INR [facility] (02/18/2021 12:04 AM [facility]) PT 14.3 12.1 - 14.8 Seconds 02/18/2021 12:25 AM [facility] INR 1.1 See Comment 02/18/2021 12:25 AM [facility] Comment:The suggested therap eutic range for standard coumadin (warfarin) therapy is an INR of 2.0-3.0. For high-risk patients (Mechanical Mitral Valve Prosthesis, etc.), the suggested prophylactic therapeutic range is an INR of 2.5-3.5. Blood BLOOD SPECIMEN / Unknown Venipuncture / Unknown 02/18/2021 12:04 AM CDT 02/18/2021 12:07 AM CDT Fredy Felipe MD LAB - COAGULATION OR DERABLES Performing Organization Address City/[facility]/ZIP Co de Phone Number [address] [address], [facility] [phone] * PHOSPHORUS BLOOD (02/18/2021 12:04 AM CDT) Phosphorus 3.4 2.8 - 5.1 mg/dL 02/18/2021 12:32 AM CDT [facility] Blood BLOOD SPECIMEN / Unknown Venipuncture / Unknown 02/18/2021 12:04 AM CDT 02/18/2021 12:08 AM CDT Fredy Felipe MD LAB - CHEMISTRY JOSE ENRIQUE VELA Performing Organization Address [facility]/ZIP Co de Phone Number [address] [address], [facility] [phone] * MAGNESIUM BLOOD (02/18/2021 12:04 AM CDT) Magnesium 2.0 1.6 - 2.6 mg/dL 02/18/2021 12:32 AM CDT [facility] Blood BLOOD SPECIMEN / Unknown Venipuncture / Unknown 02/18/2021 12:04 AM CDT 02/18/2021 12:08 AM CDT Fredy Felipe MD LAB - CHEMISTRY JOSE ENRIQUE VELA Performing Organization Address [facility]/ZIP Co de Phone Number [address] [address], [facility] [phone] * (ABNORMAL) CALCIUM IONIZED WHOLE BLOOD (02/18/2021 12:04 AM CDT) Calcium Ionized 1.14 mmol/L 02/18/2021 12:12 AM CDT [facility] pH 7.41 7.35 - 7.45 pH 02/18/2021 12:12 AM CDT [facility] Ionized Calcium pH Adjusted 1.14(L) 1.19 - 1.34 mmol/L 02/18/2021 12:12 AM CDT [facility] Blood BLOOD SPECIMEN / Unknown Venipuncture / Unknown 02/18/2021 12:04 AM CDT 02/18/2021 12:06 AM CDT Fredy Felipe MD LAB - CHEMISTRY JOSE ENRIQUE VELA [facility] [address] [place] [address], [facility] [phone] * XR CHEST 1VW PORTABLE (02/17/2021 10:00 PM CDT) Anatomical Region Laterality Modality Chest Radiographic Sera ging 02/18/2021 9:45 AM CDT Impressions 02/18/2021 9:58 AM CDT IMPRESSION: 1.Support devices as above. 2.No pneumothorax. 3.Middle and lower lung zone atelectasis. Report dictated by Simone Alexander MD, PhD (vice president and portfolio manager). I, Dr. NENA CLEMENTE have personally [...] Report dictated by Simone Alexander MD, PhD (vice president and portfolio manager). I, Dr. NENA CLEMENTE have personally [...] the diaphragm with the terminus outside the [id number]. *Bilateral apically oriented thoracostomy tubes are reidentified. [...] on 02/17/2021. Dictated by Rico Sawant DO (vice president and portfolio manager). I, Dr. OSWALDO CLEMONS have personally [...] below the diaphragm with the terminusoutside the [id number]. *Bilateral apically oriented thoracostomy tubes are reidentified. [...] on 02/17/2021. Dictated by Rico Sawant DO (vice president and portfolio manager). I, Dr. OSWALDO CLEMONS have personally reviewed and interpreted this examination/study. This report was electronically signed by OSWALDO CLEMONS on 02/17/2021 2:39PM . Fredy Felipe MD DIAGNOSTIC IMAGING O RDERABLES * (ABNORMAL) CBC W AUTO DIFFERENTIAL (02/17/2021 12:13 AM T) WBC 21.4(H) 3.5 - 10.5 10? 3 /uL 02/17/2021 12:26 AM [facility] RBC 4.87 4.30 - 5.70 10? 6 /uL 02/17/2021 12:26 AM [facility] Hemoglobin 13.5 12.0 - 17.6 g/dL 02/17/2021 12:26 AM [facility] Hematocrit 41.8 35.2 - 51.7 % 02/17/2021 12:26 AM [facility] MCV 85.8 80.7 - 98.3 fL 02/17/2021 12:26 AM [facility] MCH 27.7 26.7 - 34.0 pg 02/17/2021 12:26 AM [facility] MCHC 32.3 30.8 - 35.9 g/dL 02/17/2021 12:26 AM [facility] Platelet Count 300 150 - 400 10? 3 /uL 02/17/2021 12:26 AM [facility] RDW-SD 45.7 36.0 - 50.0 fL 02/17/2021 12:26 AM [facility] RDW-CV 14.5 11.2 - 14.8 % 02/17/2021 12:26 AM [facility] MPV 9.0(L) 9.4 - 12.9 fL 02/17/2021 12:26 AM [facility] nRBC Absolute 0.00 0 10? 3 /uL 02/17/2021 12:26 AM [facility] nRBC Auto 0.0 0 /100 WBC 02/17/2021 12:26 AM [facility] Neutrophils % 88.2(H) 35.0 - 70.0 % 02/17/2021 12:26 AM [facility] Lymphocytes % 5.1(L) 20.0 - 43.0 % 02/17/2021 12:26 AM [facility] Monocytes % 6.0 5.0 - 13.0 % 02/17/2021 12:26 AM [facility] Eosinophils % 0.0 0.0 - 6.0 % 02/17/2021 12:26 AM [facility] Basophil % 0.1 0.0 - 2.0 % 02/17/2021 12:26 AM [facility] Neutrophils Absolute 18.9(H) 1.6 - 7.0 10? 3 /uL 02/17/2021 12:26 AM [facility] Lymphocyte Absolute 1.1 1.1 - 3.9 10? 3 /uL 02/17/2021 12:26 AM [facility] Monocytes Absolute 1.28(H) 0.26 - 1.07 10? 3 /uL 02/17/2021 12:26 AM [facility] Eosinophils Absolute 0.00 0.00 - 0.47 10? 3 /uL 02/17/2021 12:26 AM [facility] Basophils Absolute 0.02 0.00 - 0.08 10? 3 /uL 02/17/2021 12:26 AM [facility] Immature Granulocytes % 0.6 0.0 - 1.0 % 02/17/2021 12:26 AM [facility] Immature Granulocytes Absolute 0.12 02/17/2021 12:26 AM CDT [facility] Blood BLOOD SPECIMEN / Unknown Venipuncture / Unknown 02/17/2021 12:13 AM CDT 02/17/2021 12:19 AM CDT Fredy Felipe MD LAB - HEMATOLOGY ORD ERABLES Performing Organization Address [facility] Co de Phone Number [address] [address], [facility] [phone] * (ABNORMAL) PT-INR [facility] (02/17/2021 12:13 AM CDT) PT 14.9(H) 12.1 - 14.8 Seconds 02/17/2021 12:33 AM CDT [facility] INR 1.2 See Comment 02/17/2021 12:33 AM T [facility] Comment:The suggested therap eutic range for standard coumadin (warfarin) therapy is an INR of 2.0-3.0. For high-risk patients (Mechanical Mitral Valve Prosthesis, etc.), the suggested prophylactic therapeutic range is an INR of 2.5-3.5. Blood BLOOD SPECIMEN / Unknown Venipuncture / Unknown 02/17/2021 12:13 AM CDT 02/17/2021 12:25 AM CDT Fredy Felipe MD LAB - COAGULATION OR DERABLES Performing Organization Address [facility] Co de Phone Number [address] [address], [facility] [phone] * (ABNORMAL) BASIC METABOLIC PANEL (CALCIUM TOTAL) (02/17/2021 12:12 AM CDT) BUN 9 7 - 26 mg/dL 02/17/2021 12:43 AM CDT [facility] Creatinine 0.82 0.71 - 1.16 mg/dL 02/17/2021 12:43 AM T [facility] Sodium 140 136 - 145 mmol/L 02/17/2021 12:43 AM T [facility] Potassium 4.1 3.5 - 4.5 mmol/L 02/17/2021 12:43 AM [facility] Chloride 105 98 - 107 mmol/L 02/17/2021 12:43 AM [facility] CO2 27 22 - 29 mmol/L 02/17/2021 12:43 AM [facility] Glucose 118(H) 70 - 115 mg/dL 02/17/2021 12:43 AM [facility] Calcium 9.1 8.4 - 10.2 mg/dL 02/17/2021 12:43 AM [facility] Anion Gap 12 8 - 18 02/17/2021 12:43 AM [facility] BUN/Creatinine Ratio 11 7 - 23 02/17/2021 12:43 AM [facility] Osmolality Calculated 290 270 - 300 mOsm/kg 02/17/2021 12:43 AM [facility] eGFR by CKD-EPI >90 >=90 mL/min/1.7 3 m2 02/17/2021 12:43 AM [facility] Blood BLOOD SPECIMEN / Unknown Venipuncture / Unknown 02/17/2021 12:12 AM CDT 02/17/2021 12:19 AM CDT Fredy Felipe MD LAB - CHEMISTRY [facility] [address] [address], [facility] [phone] * PHOSPHORUS BLOOD (02/17/2021 12:12 AM CDT) Phosphorus 3.5 2.8 - 5.1 mg/dL 02/17/2021 12:43 AM T [facility] Blood BLOOD SPECIMEN / Unknown Venipuncture / Unknown 02/17/2021 12:12 AM CDT 02/17/2021 12:19 AM CDT Fredy Felipe MD LAB - CHEMISTRY [facility] [address] [address], [place] [phone] * MAGNESIUM BLOOD (02/17/2021 12:12 AM CDT) Magnesium 1.9 1.6 - 2.6 mg/dL 02/17/2021 12:43 AM CDT [facility] Blood BLOOD SPECIMEN / Unknown Venipuncture / Unknown 02/17/2021 12:12 AM CDT 02/17/2021 12:19 AM CDT Fredy Felipe MD LAB - CHEMISTRY [facility] [address] [address], [facility] [phone] * CALCIUM IONIZED WHOLE BLOOD (02/17/2021 12:12 AM CDT) Calcium Ionized 1.18 mmol/L 02/17/2021 12:21 AM CDT [facility] pH 7.43 7.35 - 7.45 pH 02/17/2021 12:21 AM CDT [facility] Ionized Calcium pH Adjusted 1.19 1.19 - 1.34 mmol/L 02/17/2021 12:21 AM CDT [facility] Blood BLOOD SPECIMEN / Unknown Venipuncture / Unknown 02/17/2021 12:12 AM CDT 02/17/2021 12:18 AM CDT Fredy Felipe MD LAB - CHEMISTRY [facility] [address] [address], [facility] [phone] * (ABNORMAL) BLOOD GASES ART + COOX PANEL (02/17/2021 12:12 AM CDT) pH Arterial 7.46(H) 7.35 - 7.45 pH 02/17/2021 12:22 AM CDT [facility] pO2 Arterial 108(H) 80 - 100 mmHg 02/17/2021 12:22 AM CDT [facility] [facility] pCO2 Arterial 40 35 - 45 mmHg 12:22 AM [facility] HCO3 Arterial 28 20 - 30 mmol/l 02/17/2021 12:22 AM [facility] BE Arterial 4.2(H) -2.0 - 2.0 mmol/L 02/17/2021 12:22 AM [facility] Oxyhemoglobin Arterial 96.5 % 02/17/2021 12:22 AM [facility] Dexoyhemoglobin (HHB) % 1.0 % 02/17/2021 12:22 AM [facility] Methemoglobin 0.9 0.0 - 2.0 % 02/17/2021 12:22 AM [facility] Carboxyhemoglobin 1.6 0.0 - 2.0 % 2020 12:22 AM [facility] O2 Content Arterial 19.1 Interpret within clinical context mg/dL 02/17/2021 12:22 AM [facility] Hemoglobin by COOX 14.0 12.0 - 17.6 g/dL 02/17/2021 12:22 AM [facility] O2 Saturation Arterial 99 90 - 100 % 02/17/2021 12:22 AM [facility] FI O2 Arterial 35.0 % 02/17/2021 12:22 AM [facility] Blood, arterial ARTERIAL BLOOD SPECIMEN / Unknown Arterial Puncture / Unknown 02/17/2021 12:12 AM CDT 02/17/2021 12:18 AM [facility] - 02/17/2021 12:22 AM [facility] Carboxyhemoglobin Normal Concentration: Non-smokers: 0-2%; Smokers: 0-9%; Toxic: >20% Fredy Felipe MD LAB - BLOOD GASES OR DERABLES [facility] [address] [place] [address], [facility] [phone] * CT HEAD WO CONTRAST (02/16/2021 3:00 [...] mucosal disease. Dictated by Uyen Garcia MD (vice president and portfolio manager). I, Dr. JUNE MADRID have personally [...] mucosal disease. Dictated by Uyen Garcia MD (vice president and portfolio manager). Dr. JUNE Yao have personally reviewed [...] courses to the stomach out of the [id number]. Chest wall and lower neck subcutaneous emphysema is decreased from prior study. Pneumomediastinum is decreased from prior study. Mild left basilar atelectasis is unchanged. Pleural effusion may contribute to opacity. There is no pneumothorax. The cardiomediastinal silhouette is partially obscured. Dictated by Alverto Ames MD (vice president and portfolio manager). Dr. EULA Yao have personally reviewed [...] courses to the stomach out of the [id number]. Chest wall and lower neck subcutaneous emphysema is decreased from prior study. Pneumomediastinum is decreased from prior study. Mild left basilar atelectasis is unchanged. Pleural effusion may contribute to opacity. There is no pneumothorax. The cardiomediastinal silhouette is partially obscured. Dictated by Alverto Ames MD (vice president and portfolio manager). I, Dr. EULA GONZALEZ have personally reviewed and interpreted this examination/study. This report was electronically signed by EULA GONZALEZ on 02/16/2021 12:26 PM . Ferdy Felipe MD DIAGNOSTIC IMAGING O RDERABLES * (ABNORMAL) DIFFERENTIAL MANUAL (02/15/2021 10:34 PM CDT) WBC (corrected for NRBC) 24.3 10? 3 /uL 02/15/2021 [facility] Total Cell Count 100 02/16/20 21 11:58 PM [facility] Neutrophils Absolute Manual 22.36(H) 1.60 - 7.00 10? 3 /uL 02/15/2021 11:58 PM [facility] Comment:(BANDS+SEGS) x WBC = NEUT # (ANC) Lymphocyte Absolute Manual 0.49(L) 1.10 - 3.90 10? 3 /uL 02/15/2021 11:58 PM [facility] Monocytes Absolute Manual 1.46(H) 0.26 - 1.07 10? 3 /uL 02/15/2021 11:58 PM [facility] Band % Manual 4 0 - 10 % 02/15/2021 11:58 PM [facility] Neutrophil % Manual 88(H) 35 - 70 % 02/15/2021 11:58 PM [facility] Lymphocyte % Manual 2(L) 20 - 43 % 02/15/2021 11:58 PM [facility] Monocytes % Manual 6 5 - 13 % 02/15/2021 11:58 PM [facility] Platelet Estimate Adequate Adequate 02/15/2021 11:58 PM [facility] Anisocytosis 1+(A) None 02/15/2021 11:58 PM [facility] Blood BLOOD SPECIMEN / Unknown Venipuncture / Unknown 02/15/2021 10:34 PM CDT 02/15/2021 10:50 PM CDT Fredy Felipe MD LAB - HEMATOLOGY ORD ERABLES Performing Organization Address City/[facility]/ZIP Co de Phone Number [facility] [address] [place] [address], [facility] [phone] * PT-INR [facility] (02/15/2021 10:34 PM CDT) PT 14.6 12.1 - 14.8 Seconds 02/15/2021 11:05 PM [facility] INR 1.2 See Comment 02/15/2021 11:05 PM [facility] Comment:The suggested therap eutic range for standard coumadin (warfarin) therapy is an INR of 2.0-3.0. For high-risk patients (Mechanical Mitral Valve Prosthesis, etc.), the suggested prophylactic therapeutic range is an INR of 2.5-3.5. Blood BLOOD SPECIMEN / Unknown Venipuncture / Unknown 02/15/2021 10:34 PM CDT 02/15/2021 10:45 PM CDT Fredy Felipe MD LAB - COAGULATION OR DERABLES [facility] [address] [place] [address], [facility] [phone] * PHOSPHORUS BLOOD (02/15/2021 10:34 PM CDT) Phosphorus 4.0 2.8 - 5.1 mg/dL 02/15/2021 11:17 PM CDT [facility] Blood BLOOD SPECIMEN / Unknown Venipuncture / Unknown 02/15/2021 10:34 PM CDT 02/15/2021 10:50 PM CDT Fredy Felipe MD LAB - CHEMISTRY JOSE ENRIQUE [place] [address] [address], [facility] [phone] * MAGNESIUM BLOOD (02/15/2021 10:34 PM CDT) Magnesium 1.8 1.6 - 2.6 mg/dL 02/15/2021 11:17 PM CDT [facility] Blood BLOOD SPECIMEN / Unknown Venipuncture / Unknown 02/15/2021 10:34 PM CDT 02/15/2021 10:50 PM CDT Fredy Felipe MD LAB - CHEMISTRY JOSE ENRIQUE [place] [address] [address], [facility] [phone] * (ABNORMAL) BASIC METABOLIC PANEL (CALCIUM TOTAL) (02/15/2021 10:34 PM CDT) BUN 9 7 - 26 mg/dL 02/15/2021 11:17 PM CDT [facility] Creatinine 0.90 0.71 - 1.16 mg/dL 02/15/2021 11:17 PM CDT [facility] Sodium 144 136 - 145 mmol/L 02/15/2021 11:17 PM CDT [facility] Potassium 4.0 3.5 - 4.5 mmol/L 02/15/2021 11:17 PM CDT [facility] Chloride 106 98 - 107 mmol/L 02/15/2021 11:17 PM [facility] CO2 26 22 - 29 mmol/L 02/15/2021 11:17 PM [facility] Glucose 118(H) 70 - 115 mg/dL 02/15/2021 11:17 PM [facility] Calcium 9.1 8.4 - 10.2 mg/dL 02/15/2021 11:17 PM [facility] Anion Gap 16 8 - 18 02/15/2021 11:17 PM [facility] BUN/Creatinine Ratio 10 7 - 23 02/15/2021 11:17 PM [facility] Osmolality Calculated 298 270 - 300 mOsm/kg 02/15/2021 11:17 PM [facility] eGFR by CKD-EPI >90 >=90 mL/min/1.7 3 m2 02/15/2021 11:17 PM [facility] Blood BLOOD SPECIMEN / Unknown Venipuncture / Unknown 02/15/2021 10:34 PM CDT 02/15/2021 10:50 PM T Fredy Felipe MD LAB - CHEMISTRY JOSE ENRIQUE [facility] Organization Address City/State/ZIP Co de Phone Number [facility] [address] [place] [address], [facility] [phone] * (ABNORMAL) BLOOD GASES ART + COOX PANEL (02/15/2021 10:34 PM CDT) pH Arterial 7.48(H) 7.35 - 7.45 pH 02/15/2021 10:50 PM [facility] pO2 Arterial 71(L) 80 - 100 mmHg 02/15/2021 10:50 PM [facility] pCO2 Arterial 38 35 - 45 mmHg 10:50 PM [facility] HCO3 Arterial 28 20 - 30 mmol/l 02/15/2021 10:50 PM [facility] BE Arterial 4.6(H) -2.0 - 2.0 mmol/L 02/15/2021 10:50 PM [facility] Oxyhemoglobin Arterial 93.4 % 02/15/2021 10:50 PM CDT [facility] Dexoyhemoglobin (HHB) % 3.9 % 02/15/2021 10:50 PM T [facility] Methemoglobin <0.8 0.0 - 2.0 % 02/15/2021 10:50 PM CDT [facility] Carboxyhemoglobin 2.0 0.0 - 2.0 % 2020 10:50 PM T [facility] O2 Content Arterial 18.8 Interpret within clinical context mg/dL 02/15/2021 10:50 PM [facility] Hemoglobin by COOX 14.3 12.0 - 17.6 g/dL 02/15/2021 10:50 PM [facility] O2 Saturation Arterial 96 90 - 100 % 02/15/2021 10:50 PM [facility] FI O2 Arterial 40.0 % 02/15/2021 10:50 PM [facility] Blood, arterial ARTERIAL BLOOD SPECIMEN / Unknown Arterial Puncture / Unknown 02/15/2021 10:34 PM CDT 02/15/2021 10:45 PM CDT [facility] - 02/15/2021 10:50 PM CDT Carboxyhemoglobin Normal Concentration: Non-smokers: 0-2%; Smokers: 0-9%; Toxic: >20% Fredy Felipe MD LAB - BLOOD GASES OR DERABLES [facility] [address] [place] [address], [facility] [phone] * (ABNORMAL) CBC W AUTO DIFFERENTIAL (02/15/2021 10:34 PM CDT) WBC 24.3(H) 3.5 - 10.5 10? 3 /uL 02/15/2021 10:57 PM T [facility] RBC 4.98 4.30 - 5.70 10? 6 /uL 02/15/2021 10:57 PM T [facility] Hemoglobin 13.8 12.0 - 17.6 g/dL 02/15/2021 10:57 PM [facility] Hematocrit 42.1 35.2 - 51.7 % 02/15/2021 10:57 PM [facility] MCV 84.5 80.7 - 98.3 fL 02/15/2021 10:57 PM [facility] MCH 27.7 26.7 - 34.0 pg 02/15/2021 10:57 PM [facility] MCHC 32.8 30.8 - 35.9 g/dL 02/15/2021 10:57 PM [facility] Platelet Count 315 150 - 400 10? 3 /uL 02/15/2021 10:57 PM [facility] RDW-SD 44.1 36.0 - 50.0 fL 02/15/2021 10:57 PM [facility] RDW-CV 14.4 11.2 - 14.8 % 02/15/2021 10:57 PM [facility] MPV 9.0(L) 9.4 - 12.9 fL 02/15/2021 10:57 PM [facility] nRBC Absolute 0.00 0 10? 3 /uL 02/15/2021 10:57 PM [facility] nRBC Auto 0.0 0 /100 WBC 02/15/2021 10:57 PM [facility] Blood BLOOD SPECIMEN / Unknown Venipuncture / Unknown 02/15/2021 10:34 PM CDT 02/15/2021 10:50 PM CDT Fredy Felipe MD LAB - HEMATOLOGY ORD ERABLES [facility] [address] [place] [address], [facility] [phone] * (ABNORMAL) CALCIUM IONIZED WHOLE BLOOD (02/15/2021 10:34 PM CDT) Calcium Ionized 1.17 mmol/L 02/15/2021 10:53 PM [facility] pH 7.50(H) 7.35 - 7.45 pH 02/15/2021 10:53 PM [facility] Ionized Calcium pH Adjusted 1.22 1.19 - 1.34 mmol/L 02/15/2021 10:53 PM [facility] Blood BLOOD SPECIMEN / Unknown Venipuncture / Unknown 02/15/2021 10:34 PM CDT 02/15/2021 10:46 PM CDT Fredy Felipe MD LAB - CHEMISTRY JOSE ENRIQUE [facility] [facility] [address] [place] [address], [facility] [phone] * (ABNORMAL) BLOOD GASES ART + COOX PANEL (02/15/2021 10:41 AM CDT) pH Arterial 7.46(H) 7.35 - 7.45 pH 02/15/2021 10:47 AM [facility] pO2 Arterial 99 80 - 100 mmHg 02/15/2021 10:47 AM [facility] pCO2 Arterial 37 35 - 45 mmHg 10:47 AM [facility] HCO3 Arterial 26 20 - 30 mmol/l 02/15/2021 10:47 AM [facility] BE Arterial 2.6(H) -2.0 - 2.0 mmol/L 02/15/2021 10:47 AM [facility] Oxyhemoglobin Arterial 96.5 % 02/15/2021 10:47 AM [facility] Dexoyhemoglobin (HHB) % 1.2 % 02/15/2021 10:47 AM [facility] Methemoglobin 0.9 0.0 - 2.0 % 02/15/2021 10:47 AM [facility] Carboxyhemoglobin 1.4 0.0 - 2.0 % 2020 10:47 AM [facility] O2 Content Arterial 21.4 Interpret within clinical context mg/dL 02/15/2021 10:47 AM [facility] Hemoglobin by COOX 15.7 12.0 - 17.6 g/dL 02/15/2021 10:47 AM [facility] O2 Saturation Arterial 99 90 - 100 % 02/15/2021 10:47 AM [facility] FI O2 Arterial 50.0 % 02/15/2021 10:47 AM CDT [facility] Blood, arterial ARTERIAL BLOOD SPECIMEN / Unknown Arterial Puncture / Unknown 02/15/2021 10:41 AM CDT 02/15/2021 10:45 AM CDT Narrative [facility] - 02/15/2021 10:47 AM CDT Carboxyhemoglobin Normal Concentration: Non-smokers: 0-2%; Smokers: 0-9%; Toxic: >20% Fredy Felipe MD LAB - BLOOD GASES OR DERABLES Performing Organization Address City/[facility]/ZIP Co de Phone Number [address] [address], [facility] [phone] * (ABNORMAL) CALCIUM IONIZED WHOLE BLOOD (02/15/2021 10:41 AM CDT) Calcium Ionized 1.19 mmol/L 02/15/2021 10:47 AM [facility] pH 7.46(H) 7.35 - 7.45 pH 02/15/2021 10:47 AM T [facility] Ionized Calcium pH Adjusted 1.22 1.19 - 1.34 mmol/L 02/15/2021 10:47 AM T [facility] Blood BLOOD SPECIMEN / Unknown Venipuncture / Unknown 02/15/2021 10:41 AM CDT 02/15/2021 10:44 AM CDT Fredy Felipe MD LAB - CHEMISTRY ORDNolan VELA [address] [address], [facility] [phone] * (ABNORMAL) DIFFERENTIAL MANUAL (02/15/2021 10:40 AM CDT) WBC (corrected for NRBC) 35.7 10? 3 /uL 02/15/2021 11:39 AM T [facility] Total Cell Count 100 02/15/2021 11:39 AM T [facility] Neutrophils Absolute Manual 33.56(H) 1.60 - 7.00 10? 3 /uL 02/15/2021 11:39 AM [facility] Comment:(BANDS+SEGS) x WBC = NEUT # (ANC) Lymphocyte Absolute Manual 0.71(L) 1.10 - 3.90 10? 3 /uL 02/15/2021 11:39 AM [facility] Monocytes Absolute Manual 1.43(H) 0.26 - 1.07 10? 3 /uL 02/15/2021 11:39 AM [facility] Band % Manual 2 0 - 10 % 02/15/2021 11:39 AM [facility] Neutrophil % Manual 92(H) 35 - 70 % 02/15/2021 11:39 AM [facility] Lymphocyte % Manual 2(L) 20 - 43 % 02/15/2021 11:39 AM [facility] Monocytes % Manual 4(L) 5 - 13 % 02/15/2021 11:39 AM [facility] Platelet Estimate Adequate Adequate 02/15/2021 11:39 AM [facility] RBC Morphology Normal 02/15/2021 11:39 AM [facility] Blood BLOOD SPECIMEN / Unknown Venipuncture / Unknown 02/15/2021 10:40 AM CDT 02/15/2021 10:48 AM CDT Fredy Felipe MD LAB - HEMATOLOGY [place] Performing Organization Address [facility] Co de Phone Number [facility] [address] [place] [phone], [facility] [phone] * (ABNORMAL) PHOSPHORUS BLOOD (02/15/2021 10:40 AM CDT) Phosphorus 2.4(L) 2.8 - 5.1 mg/dL 02/15/2021 11:14 AM T [facility] Blood BLOOD SPECIMEN / Unknown Venipuncture / Unknown 02/15/2021 10:40 AM CDT 02/15/2021 10:48 AM CDT Fredy Felipe MD LAB - CHEMISTRY ORDNolan VELA [facility] [address] [place] [address], [facility] [phone] * MAGNESIUM BLOOD (02/15/2021 10:40 AM CDT) Pathologist [facility] Magnesium 1.8 1.6 - 2.6 mg/dL 02/15/2021 11:14 AM T [facility] Blood BLOOD SPECIMEN / Unknown Venipuncture / Unknown 02/15/2021 10:40 AM CDT 02/15/2021 10:48 AM CDT Fredy Felipe MD LAB - CHEMISTRY JOSE ENRIQUE [place] [facility] [address] [place] [address], [facility] [phone] * (ABNORMAL) CBC W AUTO DIFFERENTIAL (02/15/2021 10:40 AM CDT) [facility] WBC 35.7(H) 3.5 - 10.5 10? 3 /uL 02/15/2021 11:16 AM [facility] RBC 5.37 4.30 - 5.70 10? 6 /uL 02/15/2021 11:16 AM [facility] Hemoglobin 15.2 12.0 - 17.6 g/dL 02/15/2021 11:16 AM [facility] Hematocrit 45.5 35.2 - 51.7 % 02/15/2021 11:16 AM [facility] MCV 84.7 80.7 - 98.3 fL 02/15/2021 11:16 AM [facility] MCH 28.3 26.7 - 34.0 pg 02/15/2021 11:16 AM [facility] MCHC 33.4 30.8 - 35.9 g/dL 02/15/2021 11:16 AM [facility] Platelet Count 358 150 - 400 10? 3 /uL 02/15/2021 11:16 AM [facility] RDW-SD 43.5 36.0 - 50.0 fL 02/15/2021 11:16 AM [facility] RDW-CV 14.2 11.2 - 14.8 % 02/15/2021 11:16 AM [facility] MPV 8.9(L) 9.4 - 12.9 fL 02/15/2021 11:16 AM [facility] nRBC Absolute 0.00 0 10? 3 /uL 02/15/2021 11:16 AM [facility] nRBC Auto 0.0 0 /100 WBC 02/15/2021 11:16 AM [facility] Blood BLOOD SPECIMEN / Unknown Venipuncture / Unknown 02/15/2021 10:40 AM CDT 02/15/2021 10:48 AM T Fredy Felipe MD LAB - HEMATOLOGY ORD ERABLES [facility] [address] [place] [address], [facility] [phone] * (ABNORMAL) COMPREHENSIVE METABOLIC PANEL (02/15/2021 10:40 AM T) BUN 10 7 - 26 mg/dL 02/15/2021 11:14 AM [facility] Creatinine 1.02 0.71 - 1.16 mg/dL 02/15/2021 11:14 AM [facility] Sodium 144 136 - 145 mmol/L 02/15/2021 11:14 AM [facility] Potassium 3.8 3.5 - 4.5 mmol/L 02/15/2021 11:14 AM [facility] Chloride 105 98 - 107 mmol/L 02/15/2021 11:14 AM [facility] CO2 26 22 - 29 mmol/L 02/15/2021 11:14 AM [facility] Glucose 171(H) 70 - 115 mg/dL 02/15/2021 11:14 AM [facility] Calcium 9.6 8.4 - 10.2 mg/dL 02/15/2021 11:14 AM [facility] Protein Total 6.9 6.0 - 8.3 g/dL 02/15/2021 11:14 AM [facility] Albumin 3.5 3.4 - 5.0 g/dL 02/15/2021 11:14 AM [facility] Bilirubin Total 0.4 0.2 - 1.2 mg/dL 02/15/2021 11:14 AM [facility] Alkaline Phosphatase 97 40 - 150 U/L 02/15/2021 11:14 AM [facility] ALT 78(H) 5 - 55 U/L 02/15/2021 11:14 AM [facility] AST 96(H) 5 - 34 U/L 02/15/2021 11:14 AM [facility] Anion Gap 17 8 - 18 02/15/2021 11:14 AM [facility] BUN/Creatinine Ratio 10 7 - 23 02/15/2021 11:14 AM [facility] Osmolality Calculated 301(H) 270 - 300 mOsm/kg 02/15/2021 11:14 AM [facility] Albumin/Globulin Ratio 1.0(L) 1.1 - 2.3 02/15/2021 11:14 AM [facility] eGFR by CKD-EPI >90 >=90 mL/min/1.7 3 m2 02/15/2021 11:14 AM [facility] Blood BLOOD SPECIMEN / Unknown Venipuncture / Unknown 02/15/2021 10:40 AM CDT 02/15/2021 10:48 AM T Fredy Felipe MD LAB - CHEMISTRY JOSE ENRIQUE [facility] Organization Address City/State/[facility] Co de Phone Number [facility] [address] [place] [phone], [facility] [phone] * TEG 6 GLOBAL HEMOSTASIS W/ LYSIS (02/15/2021 8:14 AM CDT) Citrated Kaolin R (Reaction Time) 7.0 4.6 - 9.1 min 02/15/2021 9:28 AM [facility] Citrated Kaolin LY30 (Lysis) 0.6 0.0 - 2.6 % 02/15/2021 9:28 AM [facility] Citrated RapidTEG MA (Max Amplitude) 65 52 - 70 mm 02/15/2021 9:28 AM CDT [facility] Citrated Functional Fibrinogen MA (Max Amplitude) 23 15 - 32 mm 02/15/2021 9:28 AM CDT [facility] Blood BLOOD SPECIMEN / Unknown Venipuncture / Unknown 02/15/2021 8:14 AM CDT 02/15/2021 8:20 AM CDT Fredy Felipe MD LAB - HEMATOLOGY ORD ERABLES [facility] [address] [place] [address], [facility] [phone] * (ABNORMAL) TEG 6S PLATELET MAPPING (02/15/2021 8:14 AM CDT) TEGPLM (Max Amplitude) Koalin 64 53 - 68 mm 02/15/2021 9:13 AM CDT [facility] TEGPLM (Max Amplitude) ACTF 14 2 - 19 mm 02/15/2021 9:13 AM CDT [facility] TEGPLM (Max Amplitude) ADP 15(L) 45 - 69 mm 02/15/2021 9:13 AM T [facility] TEGPLM (Max Amplitude) AA 64 51 - 71 mm 02/15/2021 9:13 AM T [facility] TEGPLM %Inhibition ADP 99(H) 0 - 17 % 02/15/2021 9:13 AM T [facility] TEGPLM %Inhibition AA 1 0 - 11 % 02/15/2021 9:13 AM T [facility] TEGPLM %Aggregation ADP 1(L) 83 - 100 % 02/15/2021 9:13 AM T [facility] TEGPLM % Aggregation AA 99 89 - 100 % 02/15/2021 9:13 AM [facility] Blood BLOOD SPECIMEN / Unknown Venipuncture / Unknown 02/15/2021 8:14 AM CDT 02/15/2021 8:20 AM CDT Fredy Felipe MD LAB - HEMATOLOGY ORD ERABLES [facility] [address] [place] [address], [facility] [phone] * XR CHEST 1VW PORTABLE (02/15/2021 7:15 [...] findings above. Dictated by Rico Sawant DO (vice president and portfolio manager). I, Dr. EULA GONZALEZ have personally [...] findings above. Dictated by Rico Sawant DO (vice president and portfolio manager). I, Dr. EULA GONZALEZ have personally reviewed and interpreted this examination/study. This report was electronically signed by EULA GONZALEZ on 02/15/2021 7:28 PM . Fredy Felipe MD DIAGNOSTIC IMAGING O RDERABLES * (ABNORMAL) URINALYSIS W/MICROSCOPIC NO CULTURE (02/15/2021 6:46 AM CDT) Color UA Yellow Straw, Yellow 02/15/2021 7:10 AM [facility] Clarity UA Slt Cloudy(A) Clear 02/15/2021 7:10 AM [facility] Specific [place] UA 1.014 1.005 - 1.030 02/15/2021 7:10 AM [facility] pH UA 6.0 5.0 - 8.0 pH 02/15/2021 7:10 AM [facility] Protein UA 2+(A) Negative 02/15/2021 7:10 AM [facility] Glucose UA 3+(A) Negative 02/15/2021 7:10 AM [facility] Ketone UA Trace(A) Negative 02/15/2021 7:10 AM [facility] Bilirubin UA Negative Negative 02/15/2021 7:10 AM [facility] Blood UA Negative Negative 02/15/2021 7:10 AM [facility] Nitrite UA Negative Negative 02/15/2021 7:10 AM [facility] Leukocyte Esterase Negative Negative 02/15/2021 7:10 AM [facility] Urobilinogen UA Negative Negative mg/dL 02/15/2021 7:10 AM [facility] RBC UA 3-5 None Seen, 0-2, 3-5 /HPF 02/15/2021 7:10 AM [facility] WBC UA 0-5 None Seen, 0-5 /HPF 02/15/2021 7:10 AM [facility] Squamous Epithelial Cells UA None Seen None Seen, 0-2, 3-5 /HPF 02/15/2021 7:10 AM [facility] Mucus UA 1+ /LPF 02/15/2021 7:10 AM [facility] Urine URINE SPECIMEN OBTAINED BY CLEAN CATCH PROCEDURE / Unknown Collection / Unknown 02/15/2021 6:46 AM CDT 02/15/2021 6:49 AM CDT Narrative [facility] - 02/15/2021 7:10 AM CDT Fredy Felipe MD LAB - URINALYSIS ORD ERABLES [facility] [address] [place] [id number], [facility] [phone] * (ABNORMAL) URINE DRUG SCREEN IMMUNOASSAY (02/15/2021 6:46 AM T) [facility] Amphetamines Screen Urine Negative Negative : < 1000 ng/mL 02/15/2021 7:18 AM [facility] Barbiturates Screen Urine Negative Negative : < 200 ng/mL 02/15/2021 7:18 AM [facility] Benzodiazepine Screen Urine Positive(A) Negative : < 200 ng/mL 02/15/2021 7:18 AM [facility] Comment: Positive urine benzodiazepine screening results should be confirmed by another generally accepted non-immunological method such as gas chromatography or mass spectrometry. ? Opiates Urine Negative Negative : < 300 ng/mL 02/15/2021 7:18 AM [facility] Cocaine Metabolites Urine Negative Negative : < 300 ng/mL 02/15/2021 7:18 AM [facility] Phencyclidine Screen Urine Negative Negative : < 25 ng/ml 02/15/2021 7:18 AM [facility] Cannabinoids Screen Urine Positive(A) Negative : <50 ng/mL 02/15/2021 7:18 AM CDT [facility] Comment:Positive urine canna binoids (THC) screening results should be confirmed by another generally accepted non-immunological method such as gas chromatography or mass spectrometry. Methadone Screen Urine Negative Negative : < 300 ng/mL 02/15/2021 7:18 AM CDT [facility] Fentanyl Screen Urine Positive(A) Negative : <1.0 ng/mL 02/15/2021 7:18 AM T [facility] Comment:Positive urine fenta nyl screening results should be confirmed by another generally accepted non-immunological method such as gas chromatography or mass spectrometry. Urine URINE / Unknown Collection / Unknown 02/15/2021 6:46 AM CDT 02/15/2021 6:54 AM CDT [facility] - 02/15/2021 7:18 AM CDT The Urine Toxicology Screening Panel does not screen for Propoxyphene, Meprobamate, Carisoprodol, Trazodone, [id number] medications and/or volatiles (Acetone, Isopropanol, Methanol or Ethylene Glycol). Ethanol, Salicylate, Acetaminophen, Tricyclic Antidepressants and several therapeutic drugs may be individually assayed in serum or plasma specimen. Toxicology testing by the [facility] is an aid to medical diagnosis and treatment of patients. No documented chain of custody was maintained. Results are intended to be used for clinical purposes only. ? Fredy Felipe MD LAB - URINE CHEMISTR Y ORDERABLES Performing Organization Address City/State/[facility] Co de Phone Number [facility] [address] [place] [address], [facility] [phone] * SARS-COV-2 (COVID-19) INTERNAL (02/15/2021 6:44 AM CDT) COVID-19 PCR Not detected Not detected 02/15/2021 1:54 PM CDT [facility] Microbiology SPECIMEN FROM NASOPHARYNGEAL STRUCTURE / Unknown Collection / Unknown 02/15/2021 6:44 AM CDT 02/15/2021 6:47 AM CDT Narrative [facility] - 02/15/2021 1:54 PM CDT This nucleic acid amplification assay performance was validated by [facility]. This test has been [...] Felipe MD LAB - MICROBIOLOGY O RDERABLES [facility] [address] [place] [address], [facility] [phone] * PTT [facility] (02/15/2021 6:42 AM CDT) APTT 26.9 23.0 - 38.4 Seconds 02/15/2021 7:40 AM CDT [facility] Comment:Suggested therapeuti c range for full dose I.V. unfractionated heparin therapy for venous thromboembolism is 71 to 109 seconds. Blood BLOOD SPECIMEN / Unknown Venipuncture / Unknown 02/15/2021 6:42 AM CDT 02/15/2021 6:48 AM CDT Fredy Felipe MD LAB - COAGULATION OR DERABLES [facility] [address] [place] [address], [facility] [phone] * (ABNORMAL) DIFFERENTIAL MANUAL (02/15/2021 6:42 AM CDT) WBC (corrected for NRBC) 35.3 10? 3 /uL 02/15/2021 7:58 AM [facility] Total Cell Count 100 02/15/2021 7:58 AM [facility] Neutrophils Absolute Manual 32.48(H) 1.60 - 7.00 10? 3 /uL 02/15/2021 7:58 AM [facility] Comment:(BANDS+SEGS) x WBC = NEUT # (ANC) Lymphocyte Absolute Manual 0.71(L) 1.10 - 3.90 10? 3 /uL 02/15/2021 7:58 AM [facility] Monocytes Absolute Manual 1.77(H) 0.26 - 1.07 10? 3 /uL 02/15/2021 7:58 AM [facility] Basophil Absolute Manual 0.35(H) 0.00 - 0.08 10? 3 /uL 02/15/2021 7:58 AM [facility] Neutrophil % Manual 92(H) 35 - 70 % 02/15/2021 7:58 AM [facility] Lymphocyte % Manual 2(L) 20 - 43 % 02/15/2021 7:58 AM [facility] Monocytes % Manual 5 5 - 13 % 02/15/2021 7:58 AM [facility] Basophils % Manual 1 0 - 2 % 02/15/2021 7:58 AM [facility] Platelet Estimate Adequate Adequate 02/15/2021 7:58 AM [facility] RBC Morphology Normal 02/15/2021 7:58 AM CDT [facility] Blood BLOOD SPECIMEN / Unknown Venipuncture / Unknown 02/15/2021 6:42 AM CDT 02/15/2021 6:49 AM CDT Fredy Felipe MD LAB - HEMATOLOGY [place] Performing Organization Address City/[facility]/ZIP Co de Phone Number [address] [address], [facility] [phone] * (ABNORMAL) CALCIUM IONIZED WHOLE BLOOD (02/15/2021 6:42 AM CDT) Calcium Ionized 0.99 mmol/L 02/15/2021 6:52 AM CDT [facility] pH 7.30(L) 7.35 - 7.45 pH 02/15/2021 6:52 AM CDT [facility] Ionized Calcium pH Adjusted 0.95(L) 1.19 - 1.34 mmol/L 02/15/2021 6:52 AM CDT [facility] Blood BLOOD SPECIMEN / Unknown Venipuncture / Unknown 02/15/2021 6:42 AM CDT 02/15/2021 6:48 AM CDT Fredy Felipe MD LAB - CHEMISTRY JOSE ENRIQUE VELA Performing Organization Address [facility]/ZIP Co de Phone Number [address] [address], [facility] [phone] * (ABNORMAL) LACTIC ACID BLOOD (02/15/2021 6:42 AM CDT) Lactic Acid-Stat 6.9(HH) <=2.0 mmol/L 02/15/2021 7:21 AM CDT [facility] Blood BLOOD SPECIMEN / Unknown Venipuncture / Unknown 02/15/2021 6:42 AM CDT 02/15/2021 6:49 AM CDT Fredy Felipe MD LAB - CHEMISTRY JOSE ENRIQUE VELA [facility] [address] [place] [address], [facility] [phone] * PT-INR [facility] (02/15/2021 6:42 AM CDT) Pathologist [facility] PT 13.8 12.1 - 14.8 Seconds 02/15/2021 7:07 AM T [facility] INR 1.1 See Comment 02/15/2021 7:07 AM [facility] Comment:The suggested therap eutic range for standard coumadin (warfarin) therapy is an INR of 2.0-3.0. For high-risk patients (Mechanical Mitral Valve Prosthesis, etc.), the suggested prophylactic therapeutic range is an INR of 2.5-3.5. Blood BLOOD SPECIMEN / Unknown Venipuncture / Unknown 02/15/2021 6:42 AM CDT 02/15/2021 6:48 AM CDT Fredy Felipe MD LAB - COAGULATION OR DERABLES [facility] [address] [place] [address], [facility] [phone] * (ABNORMAL) BLOOD GASES ART + COOX PANEL (02/15/2021 6:42 AM CDT) pH Arterial 7.29(L) 7.35 - 7.45 pH 02/15/2021 6:52 AM [facility] pO2 Arterial 208(H) 80 - 100 mmHg 02/15/2021 6:52 AM [facility] pCO2 Arterial 49(H) 35 - 45 mmHg 6:52 AM [facility] HCO3 Arterial 24 20 - 30 mmol/l 02/15/2021 6:52 AM [facility] BE Arterial -3.5(L) -2.0 - 2.0 mmol/L 02/15/2021 6:52 AM [facility] Oxyhemoglobin Arterial 96.4 % 02/15/2021 6:52 AM [facility] Dexoyhemoglobin (HHB) % 0.2 % 02/15/2021 6:52 AM CDT [facility] Methemoglobin 0.9 0.0 - 2.0 % 02/15/2021 6:52 AM T [facility] Carboxyhemoglobin 2.5(H) 0.0 - 2.0 % 2020 6:52 AM T [facility] O2 Content Arterial 20.6 Interpret within clinical context mg/dL 02/15/2021 6:52 AM T [facility] Hemoglobin by COOX 14.9 12.0 - 17.6 g/dL 02/15/2021 6:52 AM T [facility] O2 Saturation Arterial 100 90 - 100 % 02/15/2021 6:52 AM T [facility] FI O2 Arterial 100.0 % 02/15/2021 6:52 AM T [facility] Blood, arterial ARTERIAL BLOOD SPECIMEN / Unknown Arterial Puncture / Unknown 02/15/2021 6:42 AM CDT 02/15/2021 6:48 AM CDT Narrative [facility] - 02/15/2021 6:52 AM CDT Carboxyhemoglobin Normal Concentration: Non-smokers: 0-2%; Smokers: 0-9%; Toxic: >20% Fredy Felipe MD LAB - BLOOD GASES OR DERABLES [address] [address], [place] [phone] * (ABNORMAL) PHOSPHORUS BLOOD (02/15/2021 6:42 AM CDT) Phosphorus 6.7(H) 2.8 - 5.1 mg/dL 02/15/2021 7:19 AM T [facility] Blood BLOOD SPECIMEN / Unknown Venipuncture / Unknown 02/15/2021 6:42 AM CDT 02/15/2021 6:50 AM CDT Fredy Felipe MD LAB - CHEMISTRY ORDNolan VELA [address] [address], [place] [phone] * MAGNESIUM BLOOD (02/15/2021 6:42 AM CDT) Magnesium 2.0 1.6 - 2.6 mg/dL 02/15/2021 7:19 AM [facility] Blood BLOOD SPECIMEN / Unknown Venipuncture / Unknown 02/15/2021 6:42 AM CDT 02/15/2021 6:50 AM CDT Fredy Felipe MD LAB - CHEMISTRY JOSE ENRIQUE VELA [facility] [address] [place] [address], [facility] [phone] * (ABNORMAL) BASIC METABOLIC PANEL (CALCIUM TOTAL) (02/15/2021 6:42 AM CDT) BUN 9 7 - 26 mg/dL 02/15/2021 7:19 AM [facility] Creatinine 1.20(H) 0.71 - 1.16 mg/dL 02/15/2021 7:19 AM [facility] Sodium 144 136 - 145 mmol/L 02/15/2021 7:19 AM [facility] Potassium 3.8 3.5 - 4.5 mmol/L 02/15/2021 7:19 AM [facility] Chloride 105 98 - 107 mmol/L 02/15/2021 7:19 AM [facility] CO2 22 22 - 29 mmol/L 02/15/2021 7:19 AM [facility] Glucose 264(H) 70 - 115 mg/dL 02/15/2021 7:19 AM [facility] Calcium 7.8(L) 8.4 - 10.2 mg/dL 02/15/2021 7:19 AM [facility] Anion Gap 21(H) 8 - 18 02/15/2021 7:19 AM [facility] BUN/Creatinine Ratio 8 7 - 23 02/15/2021 7:19 AM [facility] Osmolality Calculated 306(H) 270 - 300 mOsm/kg 02/15/2021 7:19 AM [facility] eGFR by CKD-EPI 78(L) >=90 mL/min/1.7 3 m2 02/15/2021 7:19 AM [facility] Blood BLOOD SPECIMEN / Unknown Venipuncture / Unknown 02/15/2021 6:42 AM CDT 02/15/2021 6:50 AM CDT Fredy Felipe MD LAB - CHEMISTRY JOSE ENRIQUE VELA [facility] Organization Address City/State/ZIP Co de Phone Number [facility] [address] [place] [address], [facility] [phone] * (ABNORMAL) CBC W AUTO DIFFERENTIAL (02/15/2021 6:42 AM CDT) WBC 35.3(H) 3.5 - 10.5 10? 3 /uL 02/15/2021 7:28 AM [facility] RBC 5.14 4.30 - 5.70 10? 6 /uL 02/15/2021 7:28 AM [facility] Hemoglobin 14.4 12.0 - 17.6 g/dL 02/15/2021 7:28 AM [facility] Hematocrit 44.5 35.2 - 51.7 % 02/15/2021 7:28 AM [facility] MCV 86.6 80.7 - 98.3 fL 02/15/2021 7:28 AM [facility] MCH 28.0 26.7 - 34.0 pg 02/15/2021 7:28 AM [facility] MCHC 32.4 30.8 - 35.9 g/dL 02/15/2021 7:28 AM [facility] Platelet Count 347 150 - 400 10? 3 /uL 02/15/2021 7:28 AM [facility] RDW-SD 45.5 36.0 - 50.0 fL 02/15/2021 7:28 AM [facility] RDW-CV 14.3 11.2 - 14.8 % 02/15/2021 7:28 AM [facility] MPV 8.9(L) 9.4 - 12.9 fL 02/15/2021 7:28 AM CDT [facility] nRBC Absolute 0.00 0 10? 3 /uL 02/15/2021 7:28 AM CDT [facility] nRBC Auto 0.0 0 /100 WBC 02/15/2021 7:28 AM CDT [facility] Blood BLOOD SPECIMEN / Unknown Venipuncture / Unknown 02/15/2021 6:42 AM CDT 02/15/2021 6:49 AM CDT Fredy Felipe MD LAB - HEMATOLOGY ORD ERABLES [facility] [address] [place] [address], [place] [phone] * BLOOD TYPE VERIFICATION (02/15/2021 6:42 AM CDT) ABO Rh O POS 02/15/2021 7:1 5 AM CDT [facility] Blood Bank BLOOD SPECIMEN / Unknown Venipuncture / Unknown 02/15/2021 6:42 AM CDT 02/15/2021 6:49 AM CDT Edith Calle MD LAB - BLOOD BANK ORD ERABLES [facility] [address] [place] [address], [place] [phone] * XR CHEST 1VW PORTABLE (02/15/2021 4:27 AM CDT) Anatomical Region Laterality Modality Chest Radiographic Sera ging 02/15/2021 4:41 AM CDT Impressions 02/15/2021 5:50 PM CDT FINDINGS/IMPRESSION: The right costophrenic angle is collimated. Low lung volumes. Lines and tubes: *An endotracheal tube terminates in the mid thoracic trachea. *The NG/OG seen coursing below the diaphragm, with its tip outside the [id number]. Linear airspace opacities are seen in the right upper and mid lung. Findings may be related to compressive atelectasis or pulmonary contusion in the post traumatic setting. There are linear bibasilar opacities, likely representing atelectasis or aspiration in the posttraumatic/post intubated setting. There is no left pleural effusion. No pneumothorax. The cardiomediastinal silhouette is normal. Dictated by Phan Brothers MD (vice president and portfolio manager). Najma, Dr. EULA GONZALEZ have personally [...] the diaphragm, with its tip outside the [id number]. Linear airspace opacities are seen in the right upper and mid lung. Findings may be related to compressive atelectasis or pulmonarycontusion in the post traumatic setting. There are linear bibasilar opacities, likely representing atelectasis or aspiration in the posttraumatic/post intubated setting. There is no left pleural effusion. No pneumothorax. The cardiomediastinal silhouette is normal. Dictated by Phan Brothers MD (vice president and portfolio manager). Dr. EULA Yao have personally reviewed [...] 4:32 AM. Dictated by Arlen Abbott MD (vice president and portfolio manager). I, Dr. EULA GONZALEZ have personally [...] 4:32 AM. Dictated by Arlen Abbott MD (vice president and portfolio manager). I, Dr. EULA GONZALEZ have personally reviewed and interpreted this examination/study. This report was electronically signed by EULA GONZALEZ on 02/15/2021 11:50 AM . Fredy Felipe MD DIAGNOSTIC IMAGING O RDERABLES * PATHOLOGY TISSUE (02/15/2021 3:57 AM CDT) Case Report Surgical Pathology Report ? Case: [id number] ? Authorizing Provider: ??Fredy Felipe MD ?Collected: ? 02/15/2021 03:57 AM ? Ordering Location: ? [facility] ?? Received: ?02/17/2021 05:03 AM ? Pathologist: ? Lamberto Lynne MD ? Specimen: ?Small Bowel Resect, SMALL BOWEL ?

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
--- OUTSIDE RECORDS SUMMARY | 2024-05-23 03:26 | XMS_ITS | Encounter Summary ---
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 technician). I, Dr. OSWALDO CLEMONS have personally reviewed [...] mucosal disease. Dictated by Uyen Garcia MD (cath lab radiology technician). Dr. JUNE Yao have personally reviewed and [...] courses to the stomach out of the kscso-hi-fcmk. Chest wall and lower neck subcutaneous emphysema is decreased from prior study. Pneumomediastinum is decreased from prior study. Mild left basilar atelectasis is unchanged. Pleural effusion may contribute to opacity. There is no pneumothorax. The cardiomediastinal silhouette is partially obscured. Dictated by Alverto Ames MD (cath lab radiology technician). Dr. EULA Yao have personally reviewed and [...] findings above. Dictated by Rico Sawant DO (cath lab radiology technician). Dr. EULA Yao have personally reviewed and [...] the diaphragm, with its tip outside the vxsab-sk-uuqf. Linear airspace opacities are seen in the right upper and mid lung. Findings may be related to compressive atelectasis or pulmonary contusion in the post traumatic setting. There are linear bibasilar opacities, likely representing atelectasis or aspiration in the posttraumatic/post intubated setting. There is no left pleural effusion. No pneumothorax. The cardiomediastinal silhouette is normal. Dictated by Phan Brothers MD (cath lab radiology technician). Dr. EULA Yao have personally reviewed and [...] 4:32 AM. Dictated by Arlen Abbott MD (cath lab radiology technician). Najma, Dr. EULA GONZALEZ have personally reviewed [...] is intact. Dictated by Phan Brothers MD (cath lab radiology technician). I, Dr. EULA GONZALEZ have personally reviewed [...] Fraga MD - 02/24/2021 7:[address] [facility] Trauma ICU Progress Note Admit: 02/15/2021 [...] 0-15 mg/hr, Last Rate: 5 mg/hr (02/24/21 06) propofol, 0-80 mcg/kg/min, Last Rate: 45 mcg/kg/min [...] [Urine:1175; Drains:1920] Date 02/23/21699 - 02/24/2165802/24/21699 - 02/25/2159 Shift 7636-4709 8792-2715 24 Hour Total 8897-9437 3228-2961 24 Hour Total INTAKE I.V.(mL/kg/hr) 4055.7(2.1) 4055.7(1) [...] 403* 374 BMP Recent Labs Component Name 02/24/212702/23/212002/21/212 POTASSIUM 4.2 4.2 4.3 CO2 25 30* [...] not displayed. ABG Recent Labs Component Name 02/24/212710/21 0021 02/22/21 0317 PH 7.44 7.43 7.41 PO2 [...] courses to the stomach out of the dmyxk-cn-bzjl. A right thoracostomy tube is unchanged in position. Small bilateral pleural effusions are suggested. Bibasilar airspace opacities may represent atelectasis and/or airspace disease. There is no pneumothorax. The cardiomediastinal silhouette is partially obscured. Dictated by Alverto Ames MD (cath lab radiology technician). Dr. NENA Yao have personally reviewed and [...] fracture identified. Dictated by Rico Sawant D.O. (Bakery Assistant) Dr. CHOCO Yao MD have personally reviewed [...] are normal. Dictated by Rico Sawant DO (cath lab radiology technician). Dr. AFRICA Yao M.D. have personally reviewed [...] coursing below the diaphragm, terminus outside the nexyj-xo-pzdr. *There is a left subclavian approach central [...] is stable. Dictated by Rico Sawant DO (cath lab radiology technician). Dr. AFRICA Yao M.D. have personally reviewed [...] below the diaphragm, the segments of the titff-sc-airr. *There is a left subclavian approach central [...] is stable. Dictated by Phan Brothers MD (cath lab radiology technician). Dr. SUNITA Yao have personally reviewed and [...] is normal. Dictated by Rico Sawant DO (cath lab radiology technician). IDr. NAOMY MD, [facility] have personally reviewed and interpreted this [...] Dr. Carrion Dictated by Bety Rose MD (cath lab radiology technician). This report was approved by Bety Rose [...] is normal. Dictated by Rico Sawant DO (cath lab radiology technician). I, Dr. OSWALDO CLEMONS have personally reviewed [...] Report dictated by Simone Alexander MD, PhD (cath lab radiology technician). I, Dr. CHOCO JIN MD have personally [...] Report dictated by Simone Alexander MD, PhD (cath lab radiology technician). I, Dr. NENA CLEMENTE have personally reviewed [...] the diaphragm with the terminus outside the ufori-ee-tjno. *Bilateral apically oriented thoracostomy tubes are reidentified. [...] on 02/17/2021. Dictated by Rico Sawant DO (cath lab radiology technician). IDr. OSWALDO have personally reviewed and interpreted [...] mucosal disease. Dictated by Uyen Garcia MD (cath lab radiology technician). Dr. JUNE Yao have personally reviewed and [...] courses to the stomach out of the ymwje-ju-ynak. Chest wall and lower neck subcutaneous emphysema is decreased from prior study. Pneumomediastinum is decreased from prior study. Mild left basilar atelectasis is unchanged. Pleural effusion may contribute to opacity. There is no pneumothorax. The cardiomediastinal silhouette is partially obscured. Dictated by Alverto Ames MD (cath lab radiology technician). Dr. EULA Yao have personally reviewed and [...] findings above. Dictated by Rico Sawant DO (cath lab radiology technician). Dr. EULA Yao have personally reviewed and [...] the diaphragm, with its tip outside the vbqgg-ue-cdnm. Linear airspace opacities are seen in the right upper and mid lung. Findings may be related to compressive atelectasis or pulmonary contusion in the post traumatic setting. There are linear bibasilar opacities, likely representing atelectasis or aspiration in the posttraumatic/post intubated setting. There is no left pleural effusion. No pneumothorax. The cardiomediastinal silhouette is normal. Dictated by Phan Brothers MD (cath lab radiology technician). Dr. EULA Yao have personally reviewed and [...] 4:32 AM. Dictated by Arlen Abbott MD (cath lab radiology technician). Najma, Dr. EULA GONZALEZ have personally reviewed [...] is intact. Dictated by Phan Brothers MD (cath lab radiology technician). I, Dr. EULA GONZALEZ have personally reviewed [...] Fraga MD - 02/23/2021 6:[address] [facility] Trauma ICU Progress Note Admit: 02/15/2021 [...] 02/23/21 0659 02/23/21699 - 02/24/21 0659 Shift 6652-1478 9382-7477 24 Hour Total 2703-7250 2662-7077 24 Hour Total INTAKE I.V.(mL/kg/hr) 1328.1(0.7) 1328.1 Tube 30 30 Shift Total(mL/kg) 1328.1(8.3) 30(0.2) 1358.1(8.5) OUTPUT Urine(mL/kg/hr) 860(0.4) 370 1230 Drains 616 069 8129 Shift Total(mL/kg) 1785(11.1) 1195(7.5) 2980(18.6) NET -456.9 [...] Coags Recent Labs Component Name 02/23/21 0021 02/21/21 2312 02/20/21 2326 02/15/21 2234 02/15/21 0642 02/15/21 [...] fracture identified. Dictated by Rico Sawant D.O. (Bakery Assistant) Dr. CHOCO Yao MD have personally reviewed [...] are normal. Dictated by Rico Sawant DO (cath lab radiology technician). Dr. AFRICA Yao M.D. have personally reviewed [...] coursing below the diaphragm, terminus outside the ifbag-iz-eeig. *There is a left subclavian approach central [...] is stable. Dictated by Rico Sawant DO (cath lab radiology technician). I, Dr. AFRICA HENRIQUEZ M.D. have personally [...] below the diaphragm, the segments of the uyiqp-rm-egxk. *There is a left subclavian approach central [...] is stable. Dictated by Phan Brothers MD (cath lab radiology technician). Dr. SUNITA Yao have personally reviewed and [...] is normal. Dictated by Rico Sawant DO (cath lab radiology technician). Dr. NAOMY Yao MD, [facility] have personally reviewed and interpreted this examination/study. This report was electronically signed by NAOMY LAZO MD, [facility] on 02/20/2021 2:18 PM . MRI [...] Dr. Carrion Dictated by Bety Rose MD (cath lab radiology technician). This report was approved by Bety Rose [...] is normal. Dictated by Rico Sawant DO (cath lab radiology technician). IDr. OSWALDO have personally reviewed and interpreted [...] Report dictated by Simone Alexander MD, PhD (cath lab radiology technician). I, Dr. CHOCO JIN MD have personally [...] Report dictated by Simone Alexander MD, PhD (cath lab radiology technician). I, Dr. NENA CLEMENTE have personally reviewed [...] the diaphragm with the terminus outside the yyxjz-kk-kjrp. *Bilateral apically oriented thoracostomy tubes are reidentified. [...] on 02/17/2021. Dictated by Rico Sawant DO (cath lab radiology technician). IDr. OSWALDO have personally reviewed and interpreted [...] mucosal disease. Dictated by Uyen Garcia MD (cath lab radiology technician). I, Dr. JUNE MADRID have personally reviewed [...] courses to the stomach out of the regoc-qd-xmkz. Chest wall and lower neck subcutaneous emphysema is decreased from prior study. Pneumomediastinum is decreased from prior study. Mild left basilar atelectasis is unchanged. Pleural effusion may contribute to opacity. There is no pneumothorax. The cardiomediastinal silhouette is partially obscured. Dictated by Alverto Ames MD (cath lab radiology technician). Dr. EULA Yao have personally reviewed and [...] findings above. Dictated by Rico Sawant DO (cath lab radiology technician). Dr. EULA Yao have personally reviewed and [...] the diaphragm, with its tip outside the fxxwt-wv-olwb. Linear airspace opacities are seen in the right upper and mid lung. Findings may be related to compressive atelectasis or pulmonary contusion in the post traumatic setting. There are linear bibasilar opacities, likely representing atelectasis or aspiration in the posttraumatic/post intubated setting. There is no left pleural effusion. No pneumothorax. The cardiomediastinal silhouette is normal. Dictated by Phan Brothers MD (cath lab radiology technician). Dr. EULA Yao have personally reviewed and [...] 4:32 AM. Dictated by Arlen Abbott MD (cath lab radiology technician). Dr. EULA Yao have personally reviewed and [...] is intact. Dictated by Phan Brothers MD (cath lab radiology technician). Dr. EULA Yao have personally reviewed and [...] Fraga MD - 02/22/2021 5:[address] [facility] Trauma ICU Progress Note Admit: 02/15/2021 [...] propofol, 0-80 mcg/kg/min, Last Rate: 20 mcg/kg/min (02/22/210) PRN Medications: 0.9% NaCl, 1-10 mL, PRN [...] [Urine:1055; Drains:7750] Date 02/21/21699 - 02/22/2165802/22/21699 - 02/23/21 06 Shift 3959-6029 8279-7416 24 Hour Total 3304-0647 2239-9536 24 Hour Total INTAKE I.V.(mL/kg/hr) 1643.3(0.9) 1709.9 3353.2 Shift Total(mL/kg) 1643.3(10.3) 1709.9(10.7) 3353.2(20.9) OUTPUT Urine(mL/kg/hr) 515(0.3) 540 1055 Drains 5600 2150 7750 Shift Total(mL/kg) 6115(38.2) 2690(16.8) 8805(55) [facility] -4471.7 -980.1 -5451.8 Weight (kg) 160.2 160.2 [...] 392 371 BMP Recent Labs Component Name 02/21/21231102/20/21232502/19/21 233 POTASSIUM 4.3 4.0 4.3 CO2 22 26 25 BUN 15 12 10 CREATININE 1.13 0.75 0.72 GLUCOSE 126* 106 92 CALCIUM 8.5 8.8 8.9 PHOS 3.5 4.6 3.8 LFTs Recent Labs Component Name 02/15/21 1040 AST 96* ALT 78* ALKPHOS 97 Coags Recent Labs Component Name 02/21/21231102/20/21232502/19/21 23302/15/21 2234 02/15/21 0642 02/15/21 0308 PT 15.2* [...] fracture identified. Dictated by Rico Sawant D.O. (Bakery Assistant) Dr. CHOCO Yao MD have personally reviewed [...] are normal. Dictated by Rico Sawant DO (cath lab radiology technician). Dr. AFRICA Yao M.D. have personally reviewed [...] coursing below the diaphragm, terminus outside the vlofh-nf-uvgc. *There is a left subclavian approach central [...] is stable. Dictated by Rico Sawant DO (cath lab radiology technician). Dr. AFRICA Yao M.D. have personally reviewed [...] below the diaphragm, the segments of the vgewm-pa-ynbc. *There is a left subclavian approach central [...] is stable. Dictated by Phan Brothers MD (cath lab radiology technician). Dr. SUNITA Yao have personally reviewed and [...] is normal. Dictated by Rico Sawant DO (cath lab radiology technician). I, Dr. NAOMY LAZO MD, [facility]CR have [...] Dr. Carrion Dictated by Bety Rose MD (cath lab radiology technician). This report was approved by Bety Rose [...] is normal. Dictated by Rico Sawant DO (cath lab radiology technician). I, Dr. OSAWLDO CLEMONS have personally reviewed and interpreted this [...] Report dictated by Simone Alexander MD, PhD (cath lab radiology technician). I, Dr. CHOCO JIN MD have personally [...] Report dictated by Simone Alexander MD, PhD (cath lab radiology technician). Dr. NENA Yao have personally reviewed and [...] the diaphragm with the terminus outside the orzeq-rl-adlr. *Bilateral apically oriented thoracostomy tubes are reidentified. [...] on 02/17/2021. Dictated by Rico Sawant DO (cath lab radiology technician). Dr. OSWALDO Yao have personally reviewed and [...] mucosal disease. Dictated by Uyen Garcia MD (cath lab radiology technician). Dr. JUNE Yao have personally reviewed and [...] courses to the stomach out of the jcpnn-rc-klrc. Chest wall and lower neck subcutaneous emphysema is decreased from prior study. Pneumomediastinum is decreased from prior study. Mild left basilar atelectasis is unchanged. Pleural effusion may contribute to opacity. There is no pneumothorax. The cardiomediastinal silhouette is partially obscured. Dictated by Alverto Ames MD (cath lab radiology technician). Dr. EULA Yao have personally reviewed and [...] findings above. Dictated by Rico Sawant DO (cath lab radiology technician). Dr. EULA Yao have personally reviewed and [...] the diaphragm, with its tip outside the gdkuq-hv-dxvv. Linear airspace opacities are seen in the right upper and mid lung. Findings may be related to compressive atelectasis or pulmonary contusion in the post traumatic setting. There are linear bibasilar opacities, likely representing atelectasis or aspiration in the posttraumatic/post intubated setting. There is no left pleural effusion. No pneumothorax. The cardiomediastinal silhouette is normal. Dictated by Phan Brothers MD (cath lab radiology technician). Dr. EULA Yao have personally reviewed and [...] 4:32 AM. Dictated by Arlen Abbott MD (cath lab radiology technician). Najma, Dr. EULA GONZALEZ have personally reviewed [...] is intact. Dictated by Phan Brothers MD (cath lab radiology technician). I, Dr. EULA GONZALEZ have personally reviewed [...] Progressing Pt is still NPO * Marilee Cano RN - 02/21/2021 12:28 PM CDT Case [...] clinical nutrition guidelines. Estimated Energy Needs: KCAL: 0553-6418 (11-14kcla/kg ABW) Protein (g): 129 (2.0g/kg IBW) Fluid (ml): 1 ml/kcal Needs based on: Kcal/kg- (Comment) (ibw 64.5kg ) Recommended Access Route: [id number] * Sonali Fraga MD - 02/21/2021 5:[address] [facility] Trauma ICU Progress Note Admit: 02/15/2021 [...] 02/20/21699 - 02/21/2165802/21/21699 - 02/22/21 0659 Shift 8245-4642 4544-2360 24 Hour Total 3583-4083 2740-7562 24 Hour Total INTAKE I.V.(mL/kg/hr) 1591.5(0.8) 1343 [...] 371 325 BMP Recent Labs Component Name 02/20/21232502/19/21233502/18/212302 POTASSIUM 4.0 4.3 3.9 CO2 26 25 [...] not displayed. ABG Recent Labs Component Name 02/20/21232502/20/217 02/19/21 233 PH 7.41 7.41 7.42 PO2 [...] coursing below the diaphragm, terminus outside the ijofy-dc-woxj. *There is a left subclavian approach central [...] is stable. Dictated by Rico Sawant DO (cath lab radiology technician). Dr. AFRICA Yao M.D. have personally reviewed [...] below the diaphragm, the segments of the pcfyi-av-pels. *There is a left subclavian approach central [...] is stable. Dictated by Phan Brothers MD (cath lab radiology technician). Dr. SUNITA Yao have personally reviewed and [...] is normal. Dictated by Rico Sawant DO (cath lab radiology technician). I, Dr. NAOMY LAZO MD, FRCR have [...] Dr. Carrion Dictated by Bety Rose MD (cath lab radiology technician). This report was approved by Bety Rose [...] is normal. Dictated by Rico Sawant DO (cath lab radiology technician). I, Dr. OSWALDO CLEMONS have personally reviewed [...] Report dictated by Simone Alexander MD, PhD (cath lab radiology technician). I, Dr. CHOCO JIN MD have personally [...] Report dictated by Simone Alexander MD, PhD (cath lab radiology technician). I, Dr. NENA CLEMENTE have personally reviewed [...] the diaphragm with the terminus outside the glkqr-rc-blpl. *Bilateral apically oriented thoracostomy tubes are reidentified. [...] on 02/17/2021. Dictated by Rico Sawant DO (cath lab radiology technician). I, Dr. OSWALDO CLEMONS have personally reviewed [...] mucosal disease. Dictated by Uyen Garcia MD (cath lab radiology technician). Dr. JUNE Yao have personally reviewed and [...] courses to the stomach out of the brols-xl-kpgv. Chest wall and lower neck subcutaneous emphysema is decreased from prior study. Pneumomediastinum is decreased from prior study. Mild left basilar atelectasis is unchanged. Pleural effusion may contribute to opacity. There is no pneumothorax. The cardiomediastinal silhouette is partially obscured. Dictated by Alverto Ames MD (cath lab radiology technician). Dr. EULA Yao have personally reviewed and [...] findings above. Dictated by Rico Sawant DO (cath lab radiology technician). Dr. EULA Yao have personally reviewed and [...] the diaphragm, with its tip outside the dxuhn-jx-cils. Linear airspace opacities are seen in the right upper and mid lung. Findings may be related to compressive atelectasis or pulmonary contusion in the post traumatic setting. There are linear bibasilar opacities, likely representing atelectasis or aspiration in the posttraumatic/post intubated setting. There is no left pleural effusion. No pneumothorax. The cardiomediastinal silhouette is normal. Dictated by Phan Brothers MD (cath lab radiology technician). Dr. EUAL Yao have personally reviewed and interpreted this [...] 4:32 AM. Dictated by Arlen Abbott MD (cath lab radiology technician). Najma, Dr. EULA GONZALEZ have personally reviewed [...] is intact. Dictated by Phan Brothers MD (cath lab radiology technician). I, Dr. EULA GONZALEZ have personally reviewed [...] call Noemi for changes. Sister Noemi Tyler [phone] Aunt Mainor [phone] Problem: Pain/Discomfort Goal: Patient exhibits reduced pain/discomfort [...] Mello MD - 02/20/2021 2:24 PM CDT [facility] Stroke Progress Note Jaime Tyler Age: [age] [...] Sonia Donato - 02/20/2021 12:24 PM CDT It Business Process Architect followed up with pt's mother to see if she would benefit from pastoral care support. Shira, pt's mother, communicated that she needed to call her daughter and did not need pastoral care visit at this time. It Business Process Architect encouraged her to let her know if she would like a visit in the future. Pastoral care will continue to follow. Please have pastoral care contacted if a need/arises. Matrha Sonia Tanmay 02/20/2021 12:26 PM * Alverto Godoy MD - 02/20/2021 11:37 AM CDT Patient seen and examined this AM. Discussed with trauma ICU team. Previous results, notes and imaging reviewed. OK to proceed to OR today for re- exploratory laparotomy, possible closure, possible abdominal wound vac. Alverto Godoy MD 02/20/2021 * Sonali Fraga MD - 02/20/2021 6:[address] [facility] Trauma ICU Progress Note Admit: 02/15/2021 [...] overnight. To OR today for re-ex lap 10/3: Afebrile. Hypertensive in the morning, labetalol put [...] 02/19/21699 - 02/20/2165802/20/21699 - 02/21/21 0659 Shift 1267-9911 1498-8640 24 Hour Total 8305-8513 9176-8316 24 Hour Total INTAKE I.V.(mL/kg/hr) 558.1(0.3) 2538.7 [...] abnormalities Labs: CBC Recent Labs Component Name 02/19/21 23302/18/21230202/18/21 0004 WBC 13.2* 11.9* 16.3* HGB 13.8 13.1 13.1 HCT 42.3 40.4 40.9 PLTCOUNT 371 325 292 BMP Recent Labs Component Name 02/19/21 23302/18/21230202/18/21 0004 POTASSIUM 4.3 3.9 4.2 CO2 25 [...] is normal. Dictated by Rico Sawant DO (cath lab radiology technician). I, Dr. OSWALDO CLEMONS have personally reviewed and interpreted this examination/study. This report was electronically signed by OSAWLDO CLEMONS on 02/19/2021 3:43 PM . XR [...] Report dictated by Simone Alexander MD, PhD (cath lab radiology technician). I, Dr. CHOCO JIN MD have personally [...] Report dictated by Simone Alexander MD, PhD (cath lab radiology technician). IDr. NENA have personally reviewed and interpreted [...] the diaphragm with the terminus outside the ufnmy-rb-iuqr. *Bilateral apically oriented thoracostomy tubes are reidentified. [...] on 02/17/2021. Dictated by Rico Sawant DO (cath lab radiology technician). IDr. OSWALDO have personally reviewed and interpreted [...] mucosal disease. Dictated by Uyen Garcia MD (cath lab radiology technician). IDr. JUNE have personally reviewed and interpreted [...] courses to the stomach out of the ffjuv-cm-rxnr. Chest wall and lower neck subcutaneous emphysema is decreased from prior study. Pneumomediastinum is decreased from prior study. Mild left basilar atelectasis is unchanged. Pleural effusion may contribute to opacity. There is no pneumothorax. The cardiomediastinal silhouette is partially obscured. Dictated by Alverto Ames MD (cath lab radiology technician). Dr. EULA Yao have personally reviewed and [...] findings above. Dictated by Rico Sawant DO (cath lab radiology technician). Dr. EULA Yao have personally reviewed and [...] the diaphragm, with its tip outside the itvvq-vo-rkxc. Linear airspace opacities are seen in the right upper and mid lung. Findings may be related to compressive atelectasis or pulmonary contusion in the post traumatic setting. There are linear bibasilar opacities, likely representing atelectasis or aspiration in the posttraumatic/post intubated setting. There is no left pleural effusion. No pneumothorax. The cardiomediastinal silhouette is normal. Dictated by Phan Brothers MD (cath lab radiology technician). Dr. EULA Yao have personally reviewed and [...] 4:32 AM. Dictated by Arlen Abbott MD (cath lab radiology technician). Dr. EULA Yao have personally reviewed and [...] is intact. Dictated by Phan Brothers MD (cath lab radiology technician). I, Dr. EULA GONZALEZ have personally reviewed [...] place - L chest tube removed on 10/6, CXR with no PTX - Continuous pulse [...] obtained 1cm beyondend of ETT. Dwayne Licea, FIRESTOPPER INSTALLER * Jaime Camacho MD - 02/19/2021 7:38 AM CDT Pt s/p exploratory laparotomy for trauma, left open, due for reexploraion today. * Sonali Fraga MD - 02/19/2021 6:[address] [facility] Trauma ICU Progress Note Admit: 02/15/2021 [...] dexmedeTOMIDine, 0-1.5 mcg/kg/hr, Last Rate: 0.3 mcg/kg/hr (02/19/212) fentanyl, 0-300 mcg/hr, Last Rate: 250 mcg/hr (02/19/21 05) lactated ringers, , Last Rate: 125 mL/hr at 02/18/218 niCARdipine, 0-15 mg/hr PRN Medications: 0.9% NaCl, [...] Date 02/18/21699 - 02/19/2165802/19/21699 - 02/20/21658 Shift 1540-2714 7427-5872 24 Hour Total 6931-3337 5927-9832 24 Hour Total INTAKE I.V.(mL/kg/hr) 1339.2(0.7) 1989.3 [...] Report dictated by Simone Alexander MD, PhD (cath lab radiology technician). I, Dr. CHOCO JIN MD have personally [...] Report dictated by Simone Alexander MD, PhD (cath lab radiology technician). I, Dr. NENA CLEMENTE have personally reviewed [...] the diaphragm with the terminus outside the hezxj-wb-btas. *Bilateral apically oriented thoracostomy tubes are reidentified. [...] on 02/17/2021. Dictated by Rico Sawant DO (cath lab radiology technician). I, Dr. OSWALDO CLEMONS have personally reviewed [...] mucosal disease. Dictated by Uyen Garcia MD (cath lab radiology technician). I, Dr. JUNE MADRID have personally reviewed [...] courses to the stomach out of the ukpnm-pz-ihlb. Chest wall and lower neck subcutaneous emphysema is decreased from prior study. Pneumomediastinum is decreased from prior study. Mild left basilar atelectasis is unchanged. Pleural effusion may contribute to opacity. There is no pneumothorax. The cardiomediastinal silhouette is partially obscured. Dictated by Alverto Ames MD (cath lab radiology technician). Dr. EULA Yao have personally reviewed and [...] findings above. Dictated by Rico Sawant DO (cath lab radiology technician). Dr. EULA Yao have personally reviewed and [...] the diaphragm, with its tip outside the zclrb-sf-mlbg. Linear airspace opacities are seen in the right upper and mid lung. Findings may be related to compressive atelectasis or pulmonary contusion in the post traumatic setting. There are linear bibasilar opacities, likely representing atelectasis or aspiration in the posttraumatic/post intubated setting. There is no left pleural effusion. No pneumothorax. The cardiomediastinal silhouette is normal. Dictated by Phan Brothers MD (cath lab radiology technician). Dr. EULA Yao have personally reviewed and [...] 4:32 AM. Dictated by Arlen Abbott MD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 JOSE ENRIQUE VELA Performing Organization Address City/[facility]/ZIP Co de Phone Number [address] [address], [facility] [phone] * (ABNORMAL) CALCIUM IONIZED WHOLE BLOOD (03/10/2021 11:51 PM CDT) Pathologist [facility] Calcium Ionized 1.20 mmol/L 03/11/2021 12:01 AM CDT [facility] pH 7.36 7.35 - 7.45 pH 03/11/2021 12:01 AM [facility] Ionized Calcium pH Adjusted 1.18(L) 1.19 - 1.34 mmol/L 03/11/2021 12:01 AM [facility] Blood BLOOD SPECIMEN / Unknown Venipuncture / Unknown 03/10/2021 11:51 PM CDT 03/10/2021 11:57 PM CDT Fredy Felipe MD LAB - CHEMISTRY JOSE ENRIQUE VELA Performing Organization Address [facility]/ZIP Co de Phone Number [address] [address], [facility] [phone] * (ABNORMAL) BLOOD GASES ART + COOX PANEL (03/10/2021 12:48 AM CDT) pH Arterial 7.48(H) 7.35 - 7.45 pH 03/10/2021 12:53 AM [facility] pO2 Arterial 161(H) 80 - 100 mmHg 03/10/2021 12:53 AM [facility] pCO2 Arterial 25(L) 35 - 45 mmHg 12:53 AM [facility] HCO3 Arterial 19(L) 20 - 30 mmol/l 03/10/2021 12:53 AM [facility] BE Arterial -3.7(L) -2.0 - 2.0 mmol/L 03/10/2021 12:53 AM [facility] Oxyhemoglobin Arterial 96.3 % 03/10/2021 12:53 AM [facility] Dexoyhemoglobin (HHB) % 0.5 % 03/10/2021 12:53 AM [facility] Methemoglobin 1.1 0.0 - 2.0 % 03/10/2021 12:53 AM [facility] Carboxyhemoglobin 2.1(H) 0.0 - 2.0 % 2020 12:53 AM [facility] O2 Content Arterial 14.6 Interpret within clinical context mg/dL 03/10/2021 12:53 AM [facility] Hemoglobin by COOX 10.5(L) 12.0 - 17.6 g/dL 03/10/2021 12:53 AM [facility] O2 Saturation Arterial 100 90 - 100 % 03/10/2021 12:53 AM [facility] FI O2 Arterial 30.0 % 03/10/2021 12:53 AM [facility] Blood, arterial ARTERIAL BLOOD SPECIMEN / Unknown Arterial Puncture / Unknown 03/10/2021 12:48 AM CDT 03/10/2021 12:50 AM [facility] - 03/10/2021 12:53 AM [facility] Carboxyhemoglobin Normal Concentration: Non-smokers: 0-2%; Smokers: 0-9%; Toxic: >20% Fredy Felipe MD LAB - BLOOD GASES OR DERABLES [facility] [address] [place] [address], [facility] [phone] * (ABNORMAL) CALCIUM IONIZED WHOLE BLOOD (03/10/2021 12:48 AM T) Calcium Ionized 1.17 mmol/L 03/10/2021 12:54 AM [facility] pH 7.50(H) 7.35 - 7.45 pH 03/10/2021 12:54 AM [facility] Ionized Calcium pH Adjusted 1.22 1.19 - 1.34 mmol/L 03/10/2021 12:54 AM [facility] Blood BLOOD SPECIMEN / Unknown Venipuncture / Unknown 03/10/2021 12:48 AM CDT 03/10/2021 12:50 AM CDT Fredy Felipe MD LAB - CHEMISTRY JOSE ENRIQUE Pena Organization Address City/State/ZIP Co de Phone Number [facility] [address] [place] [address], [facility] [phone] * (ABNORMAL) DIFFERENTIAL MANUAL (03/10/2021 12:08 AM CDT) WBC (corrected for NRBC) 22.6 10? 3 /uL 03/10/2021 2:05 AM [facility] Total Cell Count 100 03/10/2021 2:05 AM [facility] Neutrophils Absolute Manual 18.53(H) 1.60 - 7.00 10? 3 /uL 03/10/2021 2:05 AM [facility] Comment:(BANDS+SEGS) x WBC = NEUT # (ANC) Lymphocyte Absolute Manual 1.36 1.10 - 3.90 10? 3 /uL 03/10/2021 2:05 AM [facility] Monocytes Absolute Manual 1.81(H) 0.26 - 1.07 10? 3 /uL 03/10/2021 2:05 AM [facility] Eosinophils Absolute Manual 0.68(H) 0.00 - 0.47 10? 3 /uL 03/10/2021 2:05 AM [facility] Basophil Absolute Manual 0.23(H) 0.00 - 0.08 10? 3 /uL 03/10/2021 2:05 AM [facility] Band % Manual 2 0 - 10 % 03/10/2021 2:05 AM [facility] Neutrophil % Manual 80(H) 35 - 70 % 03/10/2021 2:05 AM [facility] Lymphocyte % Manual 6(L) 20 - 43 % 03/10/2021 2:05 AM [facility] Monocytes % Manual 8 5 - 13 % 03/10/2021 2:05 AM [facility] Eosinophils % Manual 3 0 - 6 % 03/10/2021 2:05 AM [facility] Basophils % Manual 1 0 - 2 % 03/10/2021 2:05 AM [facility] Platelet Estimate Increased( A) Adequate 03/10/2021 2:05 AM [facility] RBC Morphology Normal 03/10/2021 2:05 AM [facility] Blood BLOOD SPECIMEN / Unknown Venipuncture / Unknown 03/10/2021 12:08 AM CDT 03/10/2021 12:23 AM CDT Fredy Felipe MD LAB - HEMATOLOGY ORD ERABLES Performing Organization Address City/[facility]/ZIP Co de Phone Number [facility] [address] [place] [address], [facility] [phone] * (ABNORMAL) CBC W AUTO DIFFERENTIAL (03/10/2021 12:08 AM CDT) WBC 22.6(H) 3.5 - 10.5 10? 3 /uL 03/10/2021 12:33 AM [facility] RBC 3.57(L) 4.30 - 5.70 10? 6 /uL 03/10/2021 12:33 AM [facility] Hemoglobin 9.7(L) 12.0 - 17.6 g/dL 03/10/2021 12:33 AM [facility] Hematocrit 31.0(L) 35.2 - 51.7 % 03/10/2021 12:33 AM [facility] MCV 86.8 80.7 - 98.3 fL 03/10/2021 12:33 AM [facility] MCH 27.2 26.7 - 34.0 pg 03/10/2021 12:33 AM [facility] MCHC 31.3 30.8 - 35.9 g/dL 03/10/2021 12:33 AM [facility] Platelet Count 516(H) 150 - 400 10? 3 /uL 03/10/2021 12:33 AM [facility] RDW-SD 42.9 36.0 - 50.0 fL 03/10/2021 12:33 AM [facility] RDW-CV 13.8 11.2 - 14.8 % 03/10/2021 12:33 AM [facility] MPV 9.8 9.4 - 12.9 fL 03/10/2021 12:33 AM [facility] nRBC Absolute 0.00 0 10? 3 /uL 03/10/2021 12:33 AM [facility] nRBC Auto 0.0 0 /100 WBC 03/10/2021 12:33 AM [facility] Blood BLOOD SPECIMEN / Unknown Venipuncture / Unknown 03/10/2021 12:08 AM CDT 03/10/2021 12:23 AM CDT Fredy Felipe MD LAB - HEMATOLOGY ORD ERABLES [facility] [address] [place] [address], [facility] [phone] * (ABNORMAL) BASIC METABOLIC PANEL (CALCIUM TOTAL) (03/10/2021 12:08 AM T) BUN 38(H) 7 - 26 mg/dL 03/10/2021 12:46 AM [facility] Creatinine 1.65(H) 0.71 - 1.16 mg/dL 03/10/2021 12:46 AM [facility] Sodium 142 136 - 145 mmol/L 03/10/2021 12:46 AM [facility] Potassium 4.3 3.5 - 4.5 mmol/L 03/10/2021 12:46 AM [facility] Chloride 111(H) 98 - 107 mmol/L 03/10/2021 12:46 AM [facility] CO2 18(L) 22 - 29 mmol/L 03/10/2021 12:46 AM [facility] Glucose 156(H) 70 - 115 mg/dL 03/10/2021 12:46 AM [facility] Calcium 8.8 8.4 - 10.2 mg/dL 03/10/2021 12:46 AM [facility] Anion Gap 17 8 - 18 03/10/2021 12:46 AM [facility] BUN/Creatinine Ratio 23 7 - 23 03/10/2021 12:46 AM [facility] Osmolality Calculated 306(H) 270 - 300 mOsm/kg 03/10/2021 12:46 AM CDT [facility] eGFR by CKD-EPI 53(L) >=90 mL/min/1.7 3 m2 03/10/2021 12:46 AM CDT [facility] Blood BLOOD SPECIMEN / Unknown Venipuncture / Unknown 03/10/2021 12:08 AM CDT 03/10/2021 12:23 AM CDT Fredy Felipe MD LAB - CHEMISTRY JOSE ENRIQUE VELA [address] [address], [place] [phone] * PHOSPHORUS BLOOD (03/10/2021 12:08 AM CDT) Phosphorus 4.0 2.8 - 5.1 mg/dL 03/10/2021 12:46 AM CDT [facility] Blood BLOOD SPECIMEN / Unknown Venipuncture / Unknown 03/10/2021 12:08 AM CDT 03/10/2021 12:23 AM CDT Fredy Felipe MD LAB - CHEMISTRY JOSE ENRIQUE VELA Performing Organization Address City/[facility]/ZIP Co de Phone Number [address] [address], [place] [phone] * MAGNESIUM BLOOD (03/10/2021 12:08 AM CDT) Magnesium 2.2 1.6 - 2.6 mg/dL 03/10/2021 12:46 AM CDT [facility] Blood BLOOD SPECIMEN / Unknown Venipuncture / Unknown 03/10/2021 12:08 AM CDT 03/10/2021 12:23 AM CDT Fredy Felipe MD LAB - CHEMISTRY JOSE ENRIQUE VELA Performing Organization Address City/[facility]/ZIP Co de Phone Number [address] [address], [place] [phone] * VANCOMYCIN LEVEL RANDOM (03/09/2021 6:26 AM CDT) Vancomycin Random 19.6 Therapeutic Ranges not established for random specimens ug/mL 03/09/2021 6:56 AM CDT [facility] Blood BLOOD SPECIMEN / Unknown Venipuncture / Unknown 03/09/2021 6:26 AM CDT 03/09/2021 6:34 AM CDT Narrative [facility] - 03/09/2021 6:56 AM CDT See institution protocol. Fredy Felipe MD LAB - CHEMISTRY JOSE ENRIQUE VELA [facility] [address] [place] [address], [facility] [phone] * XR CHEST 1VW PORTABLE (03/09/2021 6:08 [...] stable. Report dictated by Cyndi Carter MD (cath lab radiology technician). I, Dr. NENA CLEMENTE have personally reviewed [...] stable. Report dictated by Cyndi Carter MD (cath lab radiology technician). I, Dr. NENA CLEMENTE have personally reviewed and interpreted this examination/study. This report was electronically signed by NENA CLEMENTE on 03/09/2021 12:04 PM . Fredy Felipe MD DIAGNOSTIC IMAGING O RDERABLES * (ABNORMAL) DIFFERENTIAL MANUAL (03/09/2021 12:18 AM [facility]) WBC (corrected for NRBC) 24.1 10? 3 /uL 03/09/2021 2:04 AM [facility] Total Cell Count 100 03/09/20 21 2:04 AM [facility] Neutrophils Absolute Manual 19.76(H) 1.60 - 7.00 10? 3 /uL 03/09/2021 2:04 AM [facility] Comment:(BANDS+SEGS) x WBC = NEUT # (ANC) Lymphocyte Absolute Manual 1.69 1.10 - 3.90 10? 3 /uL 03/09/2021 2:04 AM [facility] Monocytes Absolute Manual 1.69(H) 0.26 - 1.07 10? 3 /uL 03/09/2021 2:04 AM [facility] Eosinophils Absolute Manual 0.72(H) 0.00 - 0.47 10? 3 /uL 03/09/2021 2:04 AM [facility] Neutrophil % Manual 82(H) 35 - 70 % 03/09/2021 2:04 AM [facility] Lymphocyte % Manual 7(L) 20 - 43 % 03/09/2021 2:04 AM [facility] Monocytes % Manual 7 5 - 13 % 03/09/2021 2:04 AM [facility] Eosinophils % Manual 3 0 - 6 % 03/09/2021 2:04 AM [facility] Metamyelocyte % Manual 1(H) 0 % 03/09/2021 2:04 AM [facility] Platelet Estimate Increased( A) Adequate 03/09/2021 2:04 AM [facility] RBC Morphology Normal 03/09/2021 2:04 AM [facility] Blood BLOOD SPECIMEN / Unknown Venipuncture / Unknown 03/09/2021 12:18 AM CDT 03/09/2021 12:28 AM CDT Fredy Felipe MD LAB - HEMATOLOGY ORD ERABLES Performing Organization Address City/State/[facility] Co de Phone Number [facility] [address] [place] [address], [facility] [phone] * (ABNORMAL) CBC W AUTO DIFFERENTIAL (03/09/2021 12:18 AM CDT) WBC 24.1(H) 3.5 - 10.5 10? 3 /uL 03/09/2021 12:36 AM [facility] RBC 3.61(L) 4.30 - 5.70 10? 6 /uL 03/09/2021 12:36 AM [facility] Hemoglobin 9.8(L) 12.0 - 17.6 g/dL 03/09/2021 12:36 AM [facility] Hematocrit 31.0(L) 35.2 - 51.7 % 03/09/2021 12:36 AM [facility] MCV 85.9 80.7 - 98.3 fL 03/09/2021 12:36 AM [facility] MCH 27.1 26.7 - 34.0 pg 03/09/2021 12:36 AM [facility] MCHC 31.6 30.8 - 35.9 g/dL 03/09/2021 12:36 AM [facility] Platelet Count 541(H) 150 - 400 10? 3 /uL 03/09/2021 12:36 AM [facility] RDW-SD 43.3 36.0 - 50.0 fL 03/09/2021 12:36 AM [facility] RDW-CV 13.9 11.2 - 14.8 % 03/09/2021 12:36 AM [facility] MPV 9.5 9.4 - 12.9 fL 03/09/2021 12:36 AM [facility] nRBC Absolute 0.00 0 10? 3 /uL 03/09/2021 12:36 AM [facility] nRBC Auto 0.0 0 /100 WBC 03/09/2021 12:36 AM [facility] Blood BLOOD SPECIMEN / Unknown Venipuncture / Unknown 03/09/2021 12:18 AM CDT 03/09/2021 12:28 AM CDT Fredy Felipe MD LAB - HEMATOLOGY ORD ERABLES [facility] [address] [place] [address], [facility] [phone] * (ABNORMAL) BASIC METABOLIC PANEL (CALCIUM TOTAL) (03/09/2021 12:18 AM CDT) BUN 34(H) 7 - 26 mg/dL 03/09/2021 12:53 AM [facility] Creatinine 1.67(H) 0.71 - 1.16 mg/dL 03/09/2021 12:53 AM [facility] Sodium 145 136 - 145 mmol/L 03/09/2021 12:53 AM [facility] Potassium 4.4 3.5 - 4.5 mmol/L 03/09/2021 12:53 AM [facility] Chloride 114(H) 98 - 107 mmol/L 03/09/2021 12:53 AM [facility] CO2 18(L) 22 - 29 mmol/L 03/09/2021 12:53 AM [facility] Glucose 146(H) 70 - 115 mg/dL 03/09/2021 12:53 AM [facility] Calcium 9.0 8.4 - 10.2 mg/dL 03/09/2021 12:53 AM [facility] Anion Gap 17 8 - 18 03/09/2021 12:53 AM [facility] BUN/Creatinine Ratio 20 7 - 23 03/09/2021 12:53 AM [facility] Osmolality Calculated 310(H) 270 - 300 mOsm/kg 03/09/2021 12:53 AM [facility] eGFR by CKD-EPI 52(L) >=90 mL/min/1.7 3 m2 03/09/2021 12:53 AM [facility] Blood BLOOD SPECIMEN / Unknown Venipuncture / Unknown 03/09/2021 12:18 AM CDT 03/09/2021 12:28 AM CDT Fredy Felipe MD LAB - CHEMISTRY JOSE ENRIQUE VELA [facility] [address] [place] [address], [facility] [phone] * (ABNORMAL) BLOOD GASES ART + COOX PANEL (03/09/2021 12:18 AM T) pH Arterial 7.47(H) 7.35 - 7.45 pH 03/09/2021 12:32 AM [facility] pO2 Arterial 94 80 - 100 mmHg 03/09/2021 12:32 AM [facility] pCO2 Arterial 27(L) 35 - 45 mmHg 12:32 AM [facility] HCO3 Arterial 20 20 - 30 mmol/l 03/09/2021 12:32 AM [facility] BE Arterial -2.9(L) -2.0 - 2.0 mmol/L 03/09/2021 12:32 AM [facility] Oxyhemoglobin Arterial 95.9 % 03/09/2021 12:32 AM [facility] Dexoyhemoglobin (HHB) % 1.0 % 03/09/2021 12:32 AM [facility] Methemoglobin 1.0 0.0 - 2.0 % 03/09/2021 12:32 AM [facility] Carboxyhemoglobin 2.2(H) 0.0 - 2.0 % 2020 12:32 AM [facility] O2 Content Arterial 15.1 Interpret within clinical context mg/dL 03/09/2021 12:32 AM [facility] Hemoglobin by COOX 11.1(L) 12.0 - 17.6 g/dL 03/09/2021 12:32 AM CDT [facility] O2 Saturation Arterial 99 90 - 100 % 03/09/2021 12:32 AM CDT [facility] FI O2 Arterial 21.0 % 03/09/2021 12:32 AM CDT [facility] Blood, arterial ARTERIAL BLOOD SPECIMEN / Unknown Arterial Puncture / Unknown 03/09/2021 12:18 AM CDT 03/09/2021 12:25 AM CDT Narrative [facility] - 03/09/2021 12:32 AM CDT Carboxyhemoglobin Normal Concentration: Non-smokers: 0-2%; Smokers: 0-9%; Toxic: >20% Fredy Felipe MD LAB - BLOOD GASES OR DERABLES [address] [address], [facility] [phone] * PHOSPHORUS BLOOD (03/09/2021 12:18 AM CDT) Phosphorus 3.7 2.8 - 5.1 mg/dL 03/09/2021 12:53 AM CDT [facility] Blood BLOOD SPECIMEN / Unknown Venipuncture / Unknown 03/09/2021 12:18 AM CDT 03/09/2021 12:28 AM CDT Fredy Felipe MD LAB - CHEMISTRY JOSE ENRIQUE VELA [address] [address], [facility] [phone] * MAGNESIUM BLOOD (03/09/2021 12:18 AM CDT) Magnesium 2.3 1.6 - 2.6 mg/dL 03/09/2021 12:53 AM CDT [facility] Blood BLOOD SPECIMEN / Unknown Venipuncture / Unknown 03/09/2021 12:18 AM CDT 03/09/2021 12:28 AM CDT Fredy Felipe MD LAB - CHEMISTRY JOSE ENRIQUE VELA Performing Organization Address City/[facility]/ZIP Co de Phone Number [address] [address], [place] [phone] * (ABNORMAL) CALCIUM IONIZED WHOLE BLOOD (03/09/2021 12:18 AM CDT) Calcium Ionized 1.17 mmol/L 03/09/2021 12:31 AM CDT [facility] pH 7.47(H) 7.35 - 7.45 pH 03/09/2021 12:31 AM CDT [facility] Ionized Calcium pH Adjusted 1.20 1.19 - 1.34 mmol/L 03/09/2021 12:31 AM CDT [facility] Blood BLOOD SPECIMEN / Unknown Venipuncture / Unknown 03/09/2021 12:18 AM CDT 03/09/2021 12:25 AM CDT Fredy Felipe MD LAB - CHEMISTRY JOSE ENRIQUE VELA Performing Organization Address [facility]/ZIP Co de Phone Number [address] [address], [place] [phone] * VANCOMYCIN LEVEL RANDOM (03/08/2021 5:30 PM CDT) Pathologist [facility] Vancomycin Random 32.6 Therapeutic Ranges not established for random specimens ug/mL 03/08/2021 5:57 PM CDT [facility] Blood BLOOD SPECIMEN / Unknown Venipuncture / Unknown 03/08/2021 5:30 PM CDT 03/08/2021 5:36 PM CDT Narrative [facility] - 03/08/2021 5:57 PM CDT See institution protocol. Fredy Felipe MD LAB - CHEMISTRY JOSE ENRIQUE VELA Performing Organization Address City/[facility]/ZIP Co de Phone Number [address] [address], [place] [phone] * XR CHEST 1VW PORTABLE (03/08/2021 5:50 [...] is stable. Dictated by Phan Brothers MD (cath lab radiology technician). Dr. NENA Yao have personally reviewed and [...] is stable. Dictated by Phan Brothers MD (cath lab radiology technician). Dr. NENA Yao have personally reviewed and interpreted this examination/study. This report was electronically signed by NENA CLEMENTE on 03/09/2021 11:30 AM . Fredy Felipe MD DIAGNOSTIC IMAGING O RDERABLES * (ABNORMAL) DIFFERENTIAL MANUAL (03/07/2021 11:57 PM CDT) WBC (corrected for NRBC) 22.8 10? 3 /uL 03/08/2021 2:26 AM CDT [facility] Total Cell Count 100 03/08/2021 2:26 AM CDT [facility] Neutrophils Absolute Manual 18.24(H) 1.60 - 7.00 10? 3 /uL 03/08/2021 2:26 AM [facility] Comment:(BANDS+SEGS) x WBC = NEUT # (ANC) Lymphocyte Absolute Manual 1.60 1.10 - 3.90 10? 3 /uL 03/08/2021 2:26 AM [facility] Monocytes Absolute Manual 1.60(H) 0.26 - 1.07 10? 3 /uL 03/08/2021 2:26 AM [facility] Eosinophils Absolute Manual 0.68(H) 0.00 - 0.47 10? 3 /uL 03/08/2021 2:26 AM [facility] Basophil Absolute Manual 0.23(H) 0.00 - 0.08 10? 3 /uL 03/08/2021 2:26 AM [facility] Neutrophil % Manual 80(H) 35 - 70 % 03/08/2021 2:26 AM [facility] Lymphocyte % Manual 7(L) 20 - 43 % 03/08/2021 2:26 AM [facility] Monocytes % Manual 7 5 - 13 % 03/08/2021 2:26 AM [facility] Eosinophils % Manual 3 0 - 6 % 03/08/2021 2:26 AM [facility] Basophils % Manual 1 0 - 2 % 03/08/2021 2:26 AM [facility] Atypical Lymphocyte % Manual 2(H) 0 % 03/08/2021 2:26 AM [facility] Platelet Estimate Adequate Adequate 03/08/2021 2:26 AM [facility] RBC Morphology Normal 03/08/2021 2:26 AM [facility] Blood BLOOD SPECIMEN / Unknown Venipuncture / Unknown 03/07/2021 11:57 PM CDT 03/08/2021 12:23 AM [facility] Fredy Felipe MD LAB - HEMATOLOGY ORD ERABLES [facility] [address] [place] [address], [facility] [phone] * (ABNORMAL) VANCOMYCIN LEVEL TROUGH (03/07/2021 11:57 PM CDT) Vancomycin Trough 22.7(H) 10.0 - 20.0 ug/mL 03/08/2021 12:47 AM [facility] Blood BLOOD SPECIMEN / Unknown Venipuncture / Unknown 03/07/2021 11:57 PM CDT 03/08/2021 12:23 AM CDT [facility] - 03/08/2021 12:47 AM CDT See institution protocol. Fredy Felipe MD LAB - CHEMISTRY JOSE ENRIQUE VELA [facility] Organization Address City/State/ZIP Co de Phone Number [facility] [address] [place] [id number], [facility] [phone] * (ABNORMAL) CBC W AUTO DIFFERENTIAL (03/07/2021 11:57 PM CDT) Pathologist [facility] WBC 22.8(H) 3.5 - 10.5 10? 3 /uL 03/08/2021 12:29 AM [facility] RBC 3.55(L) 4.30 - 5.70 10? 6 /uL 03/08/2021 12:29 AM [facility] Hemoglobin 9.7(L) 12.0 - 17.6 g/dL 03/08/2021 12:29 AM [facility] Hematocrit 30.4(L) 35.2 - 51.7 % 03/08/2021 12:29 AM [facility] MCV 85.6 80.7 - 98.3 fL 03/08/2021 12:29 AM [facility] MCH 27.3 26.7 - 34.0 pg 03/08/2021 12:29 AM [facility] MCHC 31.9 30.8 - 35.9 g/dL 03/08/2021 12:29 AM [facility] Platelet Count 535(H) 150 - 400 10? 3 /uL 03/08/2021 12:29 AM [facility] RDW-SD 43.0 36.0 - 50.0 fL 03/08/2021 12:29 AM [facility] RDW-CV 13.6 11.2 - 14.8 % 03/08/2021 12:29 AM [facility] MPV 9.4 9.4 - 12.9 fL 03/08/2021 12:29 AM [facility] nRBC Absolute 0.00 0 10? 3 /uL 03/08/2021 12:29 AM [facility] nRBC Auto 0.0 0 /100 WBC 03/08/2021 12:29 AM [facility] Blood BLOOD SPECIMEN / Unknown Venipuncture / Unknown 03/07/2021 11:57 PM CDT 03/08/2021 12:23 AM T Fredy Felipe MD LAB - HEMATOLOGY ORD ERABLES [facility] [address] [place] [address], [facility] [phone] * (ABNORMAL) BASIC METABOLIC PANEL (CALCIUM TOTAL) (03/07/2021 11:57 PM CDT) BUN 35(H) 7 - 26 mg/dL 03/08/2021 12:49 AM [facility] Creatinine 1.60(H) 0.71 - 1.16 mg/dL 03/08/2021 12:49 AM [facility] Sodium 144 136 - 145 mmol/L 03/08/2021 12:49 AM [facility] Potassium 4.0 3.5 - 4.5 mmol/L 03/08/2021 12:49 AM [facility] Chloride 113(H) 98 - 107 mmol/L 03/08/2021 12:49 AM [facility] CO2 20(L) 22 - 29 mmol/L 03/08/2021 12:49 AM [facility] Glucose 132(H) 70 - 115 mg/dL 03/08/2021 12:49 AM [facility] Calcium 9.1 8.4 - 10.2 mg/dL 03/08/2021 12:49 AM [facility] Anion Gap 15 8 - 18 03/08/2021 12:49 AM [facility] BUN/Creatinine Ratio 22 - 03/08/2021 12:49 AM [facility] Osmolality Calculated 308(H) 270 - 300 mOsm/kg 03/08/2021 12:49 AM [facility] eGFR by CKD-EPI 55(L) >=90 mL/min/1.7 3 m2 03/08/2021 12:49 AM [facility] Blood BLOOD SPECIMEN / Unknown Venipuncture / Unknown 03/07/2021 11:57 PM CDT 03/08/2021 12:23 AM T Fredy Felipe MD LAB - CHEMISTRY JOSE ENRIQUE VELA [facility] Organization Address City/State/ZIP Co de Phone Number [facility] [address] [place] [address], [facility] [phone] * (ABNORMAL) BLOOD GASES ART + COOX PANEL (03/07/2021 11:57 PM T) pH Arterial 7.50(H) 7.35 - 7.45 pH 03/08/2021 12:17 AM [facility] pO2 Arterial 183(H) 80 - 100 mmHg 03/08/2021 12:17 AM [facility] pCO2 Arterial 25(L) 35 - 45 mmHg 12:17 AM [facility] HCO3 Arterial 20 20 - 30 mmol/l 03/08/2021 12:17 AM [facility] BE Arterial -2.6(L) -2.0 - 2.0 mmol/L 03/08/2021 12:17 AM [facility] Oxyhemoglobin Arterial 96.5 % 03/08/2021 12:17 AM [facility] Dexoyhemoglobin (HHB) % 0.0 % 03/08/2021 12:17 AM [facility] Methemoglobin 1.1 0.0 - 2.0 % 03/08/2021 12:17 AM [facility] Carboxyhemoglobin 2.4(H) 0.0 - 2.0 % 2020 12:17 AM [facility] O2 Content Arterial 14.5 Interpret within clinical context mg/dL 03/08/2021 12:17 AM T [facility] Hemoglobin by COOX 10.4(L) 12.0 - 17.6 g/dL 03/08/2021 12:17 AM [facility] O2 Saturation Arterial 100 90 - 100 % 03/08/2021 12:17 AM T [facility] FI O2 Arterial 21.0 % 03/08/2021 12:17 AM T [facility] Blood, arterial ARTERIAL BLOOD SPECIMEN / Unknown Arterial Puncture / Unknown 03/07/2021 11:57 PM CDT 03/08/2021 12:11 AM CDT Narrative [facility] - 03/08/2021 12:17 AM CDT Carboxyhemoglobin Normal Concentration: Non-smokers: 0-2%; Smokers: 0-9%; Toxic: >20% Fredy Felipe MD LAB - BLOOD GASES OR DERABLES Performing Organization Address [facility] Co de Phone Number [address] [address], [facility] [phone] * (ABNORMAL) PT-INR [facility] (03/07/2021 11:57 PM CDT) PT 16.5(H) 12.1 - 14.8 Seconds 03/08/2021 12:37 AM [facility] INR 1.4 See Comment 03/08/2021 12:37 AM [facility] Comment:The suggested therap eutic range [...] OR DERABLES Performing Organization Address [facility] Co de Phone Number [address] [address], [facility] [phone] * PHOSPHORUS BLOOD (03/07/2021 11:57 PM CDT) Phosphorus 3.0 2.8 - 5.1 mg/dL 03/08/2021 12:50 AM CDT [facility] Blood BLOOD SPECIMEN / Unknown Venipuncture / Unknown 03/07/2021 11:57 PM CDT 03/08/2021 12:23 AM CDT Fredy Felipe MD LAB - CHEMISTRY JOSE ENRIQUE VELA [address] [address], [facility] [phone] * MAGNESIUM BLOOD (03/07/2021 11:57 PM CDT) Magnesium 2.1 1.6 - 2.6 mg/dL 03/08/2021 12:50 AM CDT [facility] Blood BLOOD SPECIMEN / Unknown Venipuncture / Unknown 03/07/2021 11:57 PM CDT 03/08/2021 12:23 AM CDT Fredy Felipe MD LAB - CHEMISTRY JOSE ENRIQUE VELA [address] [address], [facility] [phone] * (ABNORMAL) CALCIUM IONIZED WHOLE BLOOD (03/07/2021 11:57 PM CDT) Pathologist [facility] Calcium Ionized 1.15 mmol/L 03/08/2021 12:17 AM CDT [facility] pH 7.49(H) 7.35 - 7.45 pH 03/08/2021 12:17 AM CDT [facility] Ionized Calcium pH Adjusted 1.19 1.19 - 1.34 mmol/L 03/08/2021 12:17 AM CDT [facility] Blood BLOOD SPECIMEN / Unknown Venipuncture / Unknown 03/07/2021 11:57 PM CDT 03/08/2021 12:11 AM CDT Fredy Felipe MD LAB - CHEMISTRY JOSE ENRIQUE VELA [facility] Organization Address City/State/ZIP Co de Phone Number [place] [phone] [place] [address], [facility] [phone] * XR CHEST 1VW PORTABLE (03/07/2021 4:51 AM CDT) Anatomical Region Laterality Modality Chest Radiographic Sera ging 03/07/2021 10:2 2 AM CDT Impressions 03/07/2021 2:51 PM CDT IMPRESSION: 1.Mild right midlung and lower lung atelectasis. Report drafted by Keo Hernandez M.D. (resident) Dr. NAOMY Yao MD, FR have personally reviewed and interpreted this examination/study. This report was electronically signed by NAOMY LAZO MD, FRCR ??on 03/07/2021 2:51 PM [...] Prevotella bivia(A) [place] 03/11/2021 9:14 AM CDT [facility] Comment:Beta-lactamase posit elvira Microbiology ABDOMINAL ABSCESS / Unknown Collection / Unknown 03/07/2021 2:41 AM CDT 03/07/2021 2:45 AM CDT Dino Hudson PA-C LAB - MICROBIOLOG Y ORDERABLES Performing Organization Address [facility] Co de Phone Number [facility] [address] [place] [phone] * CULTURE FUNGUS OTHER+FUNGUS SMEAR (03/07/2021 2:41 AM CDT) Culture No fungus isolated [place]ISTA 03/31/2021 9:21 AM [employer] [facility] Fungus Stain No yeast or hyphae seen 03/31/2021 9:21 AM [employer] [facility] Microbiology ABDOMINAL ABSCESS / Unknown Collection / Unknown 03/07/2021 2:41 AM CDT 03/07/2021 2:45 AM CDT Dino Hudson PA-C LAB - MICROBIOLOG Y ORDERABLES Performing Organization Address [facility] Co de Phone Number [facility] [address] [place] [address] [phone] * (ABNORMAL) CULTURE WOUND+GRAM STAIN (03/07/2021 2:41 AM CDT) Culture Heavy Staphylococcus lugdunensis(A) [place] 03/10/2021 7:16 AM CDT [facility] Culture Heavy Klebsiella (formerly Enterobacter) aerogenes(A) [place] 03/10/2021 7:16 AM CDT [facility] Culture Heavy Staphylococcus epidermidis(A) 03/10/2021 7:16 AM CDT [facility] Gram Stain Light Polymorphonuclear cells 03/10/2021 7:16 AM T [facility] Gram Stain Light Gram-positive cocci in clusters 03/10/2021 7:16 AM CDT [facility] Gram Stain Moderate Gram-positive cocci pairs and chains 03/10/2021 7:16 AM [facility] Microbiology ABDOMINAL ABSCESS / Unknown Collection / Unknown 03/07/2021 2:41 AM CDT 03/07/2021 2:45 AM CDT [facility] - 03/10/2021 7:16 AM CDT Enterobacter, [...] Hudson PA-C LAB - MICROBIOLOG Y ORDERABLES [facility] [address] [place] [address], [facility] [phone] * (ABNORMAL) BLOOD GASES ART + COOX PANEL (03/07/2021 12:29 AM [facility]) pH Arterial 7.51(H) 7.35 - 7.45 pH 03/07/2021 12:41 AM [facility] pO2 Arterial 161(H) 80 - 100 mmHg 03/07/2021 12:41 AM [facility] pCO2 Arterial 21(L) 35 - 45 mmHg 12:41 AM [facility] HCO3 Arterial 17(L) 20 - 30 mmol/l 03/07/2021 12:41 AM [facility] BE Arterial -4.5(L) -2.0 - 2.0 mmol/L 03/07/2021 12:41 AM [facility] Oxyhemoglobin Arterial 97.0 % 03/07/2021 12:41 AM [facility] Dexoyhemoglobin (HHB) % 0.1 % 03/07/2021 12:41 AM [facility] Methemoglobin 1.1 0.0 - 2.0 % 03/07/2021 12:41 AM [facility] Carboxyhemoglobin 1.8 0.0 - 2.0 % 2020 12:41 AM [facility] O2 Content Arterial 15.6 Interpret within clinical context mg/dL 03/07/2021 12:41 AM [facility] Hemoglobin by COOX 11.2(L) 12.0 - 17.6 g/dL 03/07/2021 12:41 AM CDT [facility] O2 Saturation Arterial 100 90 - 100 % 03/07/2021 12:41 AM T [facility] FI O2 Arterial 40.0 % 03/07/2021 12:41 AM T [facility] Blood, arterial ARTERIAL BLOOD SPECIMEN / Unknown Arterial Puncture / Unknown 03/07/2021 12:29 AM CDT 03/07/2021 12:38 AM CDT Narrative [facility] - 03/07/2021 12:41 AM CDT Carboxyhemoglobin Normal Concentration: Non-smokers: 0-2%; Smokers: 0-9%; Toxic: >20% Fredy Felipe MD LAB - BLOOD GASES OR DERABLES Performing Organization Address City/[facility]/ZIP Co de Phone Number [address] [address], [facility] [phone] * (ABNORMAL) CALCIUM IONIZED WHOLE BLOOD (03/07/2021 12:29 AM CDT) Calcium Ionized 1.20 mmol/L 03/07/2021 12:41 AM T [facility] pH 7.51(H) 7.35 - 7.45 pH 03/07/2021 12:41 AM T [facility] Ionized Calcium pH Adjusted 1.26 1.19 - 1.34 mmol/L 03/07/2021 12:41 AM T [facility] Blood BLOOD SPECIMEN / Unknown Venipuncture / Unknown 03/07/2021 12:29 AM CDT 03/07/2021 12:38 AM CDT Fredy Felipe MD LAB - CHEMISTRY ORDE RABLES Performing Organization Address [facility]/ZIP Co de Phone Number [address] [address], [place] [phone] * (ABNORMAL) HEPATIC FUNCTION PANEL (03/06/2021 11:52 PM CDT) Protein Total 7.4 6.0 - 8.3 g/dL 021 5:57 AM [facility] Albumin 1.7(L) 3.4 - 5.0 g/dL 03/07/2021 5:57 AM [facility] Bilirubin Total 0.9 0.2 - 1.2 mg/dL 02/15 5:57 AM [facility] Bilirubin Conjugated 0.7(H) 0.1 - 0.5 mg/dL 03/07/2021 5:57 AM [facility] Bilirubin Unconjugated 0.2 Unconjugated Bilirubin is a calculated value: Reference ranges have not been established. mg/dL 03/07/2021 5:57 AM [facility] Alkaline Phosphatase 302(H) 40 - 150 U/L 03/07/2021 5:57 AM [facility] ALT 80(H) 5 - 55 U/L 03/07/2021 5:57 AM [facility] AST 86(H) 5 - 34 U/L 03/07/2021 5:57 AM [facility] Albumin/Globulin Ratio 0.3(L) 1.1 - 2.3 03/07/2021 5:57 AM [facility] Blood BLOOD SPECIMEN / Unknown Venipuncture / Unknown 03/06/2021 11:52 PM CDT 03/06/2021 11:56 PM CDT Fredy Felipe MD LAB - CHEMISTRY JOSE ENRIQUE VELA [facility] Organization Address City/State/[facility] Co de Phone Number [facility] [address] [place] [address], [facility] [phone] * (ABNORMAL) DIFFERENTIAL MANUAL (03/06/2021 11:52 PM CDT) WBC (corrected for NRBC) 22.9 10? 3 /uL 03/07/2021 1:27 AM [facility] Total Cell Count 100 03/07/2021 1:27 AM [facility] Neutrophils Absolute Manual 18.78(H) 1.60 - 7.00 10? 3 /uL 03/07/2021 1:27 AM [facility] Comment:(BANDS+SEGS) x WBC = NEUT # (ANC) Lymphocyte Absolute Manual 1.60 1.10 - 3.90 10? 3 /uL 03/07/2021 1:27 AM [facility] Monocytes Absolute Manual 2.06(H) 0.26 - 1.07 10? 3 /uL 03/07/2021 1:27 AM [facility] Eosinophils Absolute Manual 0.23 0.00 - 0.47 10? 3 /uL 03/07/2021 1:27 AM [facility] Basophil Absolute Manual 0.23(H) 0.00 - 0.08 10? 3 /uL 03/07/2021 1:27 AM [facility] Neutrophil % Manual 82(H) 35 - 70 % 03/07/2021 1:27 AM [facility] Lymphocyte % Manual 7(L) 20 - 43 % 03/07/2021 1:27 AM [facility] Monocytes % Manual 9 5 - 13 % 03/07/2021 1:27 AM [facility] Eosinophils % Manual 1 0 - 6 % 03/07/2021 1:27 AM [facility] Basophils % Manual 1 0 - 2 % 03/07/2021 1:27 AM [facility] Platelet Estimate Increased( A) Adequate 03/07/2021 1:27 AM [facility] RBC Morphology Normal 03/07/2021 1:27 AM [facility] Blood BLOOD SPECIMEN / Unknown Venipuncture / Unknown 03/06/2021 11:52 PM CDT 03/06/2021 11:56 PM CDT Fredy Felipe MD LAB - HEMATOLOGY ORD ERABLES [facility] [address] [place] [address], [facility] [phone] * (ABNORMAL) CBC W AUTO DIFFERENTIAL (03/06/2021 11:52 PM CDT) WBC 22.9(H) 3.5 - 10.5 10? 3 /uL 03/07/2021 12:08 AM [facility] RBC 3.88(L) 4.30 - 5.70 10? 6 /uL 03/07/2021 12:08 AM [facility] Hemoglobin 10.3(L) 12.0 - 17.6 g/dL 03/07/2021 12:08 AM [facility] Hematocrit 33.4(L) 35.2 - 51.7 % 03/07/2021 12:08 AM [facility] MCV 86.1 80.7 - 98.3 fL 03/07/2021 12:08 AM [facility] MCH 26.5(L) 26.7 - 34.0 pg 03/07/2021 12:08 AM [facility] MCHC 30.8 30.8 - 35.9 g/dL 03/07/2021 12:08 AM [facility] Platelet Count 598(H) 150 - 400 10? 3 /uL 03/07/2021 12:08 AM [facility] Comment:Checked by periphera l smear. RDW-SD 43.4 36.0 - 50.0 fL 03/07/2021 12:08 AM [facility] RDW-CV 13.8 11.2 - 14.8 % 03/07/2021 12:08 AM [facility] MPV 9.1(L) 9.4 - 12.9 fL 03/07/2021 12:08 AM [facility] nRBC Absolute 0.00 0 10? 3 /uL 03/07/2021 12:08 AM [facility] nRBC Auto 0.0 0 /100 WBC 03/07/2021 12:08 AM [facility] Immature Platelet Fraction 0.9(L) 1.1 - 6.2 % 03/07/2021 12:08 AM [facility] Blood BLOOD SPECIMEN / Unknown Venipuncture / Unknown 03/06/2021 11:52 PM CDT 03/06/2021 11:56 PM CDT Fredy Felipe MD LAB - HEMATOLOGY ORD ERABLES [facility] [address] [place] [address], [facility] [phone] * (ABNORMAL) BASIC METABOLIC PANEL (CALCIUM TOTAL) (03/06/2021 11:52 PM CDT) BUN 36(H) 7 - 26 mg/dL 03/07/2021 12:18 AM [facility] Creatinine 1.45(H) 0.71 - 1.16 mg/dL 03/07/2021 12:18 AM [facility] Sodium 141 136 - 145 mmol/L 03/07/2021 12:18 AM [facility] Potassium 4.0 3.5 - 4.5 mmol/L 03/07/2021 12:18 AM [facility] Chloride 111(H) 98 - 107 mmol/L 03/07/2021 12:18 AM [facility] CO2 17(L) 22 - 29 mmol/L 03/07/2021 12:18 AM [facility] Glucose 112 70 - 115 mg/dL 03/07/2021 12:18 AM [facility] Calcium 8.7 8.4 - 10.2 mg/dL 03/07/2021 12:18 AM [facility] Anion Gap 17 8 - 18 03/07/2021 12:18 AM [facility] BUN/Creatinine Ratio 25(H) 7 - 23 03/07/2021 12:18 AM [facility] Osmolality Calculated 301(H) 270 - 300 mOsm/kg 03/07/2021 12:18 AM [facility] eGFR by CKD-EPI 62(L) >=90 mL/min/1.7 3 m2 03/07/2021 12:18 AM [facility] Blood BLOOD SPECIMEN / Unknown Venipuncture / Unknown 03/06/2021 11:52 PM CDT 03/06/2021 11:56 PM [facility] Fredy Felipe MD LAB - CHEMISTRY JOSE ENRIQUE VELA [facility] Organization Address City/State/ZIP Co de Phone Number [facility] [address] [place] [address], [facility] [phone] * (ABNORMAL) PT-INR [facility] (03/06/2021 11:52 PM CDT) PT 15.2(H) 12.1 - 14.8 Seconds 03/07/2021 12:08 AM CDT [facility] INR 1.2 See Comment 03/07/2021 12:08 AM CDT [facility] Comment:The suggested therap eutic range for standard coumadin (warfarin) therapy is an INR of 2.0-3.0. For high-risk patients (Mechanical Mitral Valve Prosthesis, etc.), the suggested prophylactic therapeutic range is an INR of 2.5-3.5. Blood BLOOD SPECIMEN / Unknown Venipuncture / Unknown 03/06/2021 11:52 PM CDT 03/06/2021 11:56 PM CDT Fredy Felipe MD LAB - COAGULATION OR DERABLES [address] [address], [facility] [phone] * PHOSPHORUS BLOOD (03/06/2021 11:52 PM CDT) Phosphorus 3.1 2.8 - 5.1 mg/dL 03/07/2021 12:18 AM CDT [facility] Blood BLOOD SPECIMEN / Unknown Venipuncture / Unknown 03/06/2021 11:52 PM CDT 03/06/2021 11:56 PM CDT Fredy Felipe MD LAB - CHEMISTRY ORDE RABLES [address] [address], [facility] [phone] * MAGNESIUM BLOOD (03/06/2021 11:52 PM CDT) Magnesium 2.3 1.6 - 2.6 mg/dL 03/07/2021 12:18 AM CDT [facility] Blood BLOOD SPECIMEN / Unknown Venipuncture / Unknown 03/06/2021 11:52 PM CDT 03/06/2021 11:56 PM CDT Fredy Felipe MD LAB - CHEMISTRY JOSE ENRIQUE VELA [facility] Organization Address City/State/ZIP Co de Phone Number [address] [address], [facility] [phone] * CT ABDOMEN PELVIS W CONTRAST (03/06/2021 [...] (resident) I, Dr. NAOMY LAZO MD, [facility] have personally reviewed and interpreted this [...] by Ivette Fortune (resident) IDr. NAOMY MD, FRCR have personally reviewedand interpreted this examination/study. This report was electronically signed by NAOMY LAZO MD, FRCR on 03/07/2021 8:28 AM . Fredy Felipe MD CT ORDERABLES * (ABNORMAL) URINALYSIS REFLEX TO MICROSCOPIC NO CULTURE (03/06/2021 5:11 PM CDT) Color UA Yellow Straw, Yellow 03/06/2021 5:45 PM CDT [facility] Clarity UA Slt Cloudy(A) Clear 03/06/2021 5:45 PM T [facility] Specific [place] UA 1.020 1.005 - 1.030 03/06/2021 5:45 PM T [facility] pH UA 6.0 5.0 - 8.0 pH 03/06/2021 5:45 PM T [facility] Protein UA 2+(A) Negative 03/06/2021 5:[address] [facility] Glucose UA Negative Negative 03/06/2021 5:45 PM CDT [facility] Ketone UA Negative Negative 03/06/2021 5:45 PM T [facility] Bilirubin UA Negative Negative 03/06/2021 5:45 PM T [facility] Blood UA 2+(A) Negative 03/06/2021 5:[address] [facility] Nitrite UA Negative Negative 03/06/2021 5:[address] [facility] Leukocyte Esterase Trace(A) Negative 03/06/2021 5:[address] [facility] Urobilinogen UA Negative Negative mg/dL 03/06/2021 5:[address] [facility] RBC UA 11-20(A) None Seen, 0-2, 3-5 /HPF 03/06/2021 5:[address] [facility] WBC UA 21-50(A) None Seen, 0-5 /HPF 03/06/2021 5:[address] [facility] Bacteria UA Trace(A) None /HPF 03/06/2021 5:45 PM CDT [facility] Yeast Budding UA Few(A) None /HPF 03/06/20 5:45 PM CDT [facility] Squamous Epithelial Cells UA 0-2 None Seen, 0-2, 3-5 /HPF 03/06/2021 5:45 PM CDT [facility] Mucus UA 1+ /LPF 03/06/2021 5:45 PM CDT [facility] RBC Casts UA 0-2(A) None Seen /LPF 03/06/2021 5:45 PM CDT [facility] Granular Casts UA 3-5(A) None Seen /LPF 03/06/2021 5:45 PM CDT [facility] Urine URINE SPECIMEN OBTAINED VIA [employer] / Unknown Collection / Unknown 03/06/2021 5:11 PM CDT 03/06/2021 5:19 PM CDT Narrative [facility] - 03/06/2021 5:45 PM CDT Fredy Felipe MD LAB - URINALYSIS ORD ERABLES [facility] [address] [place] [address], [facility] [phone] * XR CHEST 1VW PORTABLE (03/06/2021 4:07 [...] 25.2 10? 3 /uL 03/06/2021 2:[address] [facility] Total Cell Count 100 03/06/2021 2:[address] [facility] Neutrophils Absolute Manual 23.18(H) 1.60 - 7.00 10? 3 /uL 03/06/2021 2:40 AM [facility] Comment:(BANDS+SEGS) x WBC = NEUT # (ANC) Lymphocyte Absolute Manual 0.50(L) 1.10 - 3.90 10? 3 /uL 03/06/2021 2:40 AM CDT [facility] Monocytes Absolute Manual 1.01 0.26 - 1.07 10? 3 /uL 03/06/2021 2:[address] [facility] Eosinophils Absolute Manual 0.50(H) 0.00 - 0.47 10? 3 /uL 03/06/2021 2:[address] [facility] Neutrophil % Manual 92(H) 35 - 70 % 03/06/2021 2:[address] [facility] Lymphocyte % Manual 2(L) 20 - 43 % 03/06/2021 2:40 AM T [facility] Monocytes % Manual 4(L) 5 - 13 % 03/06/2021 2:40 AM [facility] Eosinophils % Manual 2 0 - 6 % 03/06/2021 2:40 AM [facility] Platelet Estimate Increased( A) Adequate 03/06/2021 2:40 AM [facility] Comment:Platelets are clumpe d on smear but appear increased. RBC Morphology Normal 03/06/2021 2:40 AM [facility] Blood BLOOD SPECIMEN / Unknown Venipuncture / Unknown 03/06/2021 1:01 AM CDT 03/06/2021 1:16 AM CDT Fredy Felipe MD LAB - HEMATOLOGY ORD ERABLES [facility] [address] [place] [address], [facility] [phone] * (ABNORMAL) CBC W AUTO DIFFERENTIAL (03/06/2021 1:01 AM CDT) WBC 25.2(H) 3.5 - 10.5 10? 3 /uL 03/06/2021 1:36 AM [facility] RBC 3.56(L) 4.30 - 5.70 10? 6 /uL 03/06/2021 1:36 AM [facility] Hemoglobin 9.8(L) 12.0 - 17.6 g/dL 03/06/2021 1:36 AM [facility] Hematocrit 31.4(L) 35.2 - 51.7 % 03/06/2021 1:36 AM [facility] MCV 88.2 80.7 - 98.3 fL 03/06/2021 1:36 AM [facility] MCH 27.5 26.7 - 34.0 pg 03/06/2021 1:36 AM [facility] MCHC 31.2 30.8 - 35.9 g/dL 03/06/2021 1:36 AM [facility] Platelet Count 633(H) 150 - 400 10? 3 /uL 03/06/2021 1:36 AM CDT [facility] RDW-SD 45.5 36.0 - 50.0 fL 03/06/2021 1:36 AM T [facility] RDW-CV 14.0 11.2 - 14.8 % 03/06/2021 1:36 AM CDT [facility] MPV 9.0(L) 9.4 - 12.9 fL 03/06/2021 1:36 AM T [facility] nRBC Absolute 0.00 0 10? 3 /uL 03/06/2021 1:36 AM T [facility] nRBC Auto 0.0 0 /100 WBC 03/06/2021 1:36 AM T [facility] Blood BLOOD SPECIMEN / Unknown Venipuncture / Unknown 03/06/2021 1:01 AM CDT 03/06/2021 1:16 AM CDT Fredy Felipe MD LAB - HEMATOLOGY ORD ERABLES Performing Organization Address City/[facility]/ZIP Co de Phone Number [address] [address], [place] [phone] * (ABNORMAL) TRIGLYCERIDES BLOOD (03/06/2021 12:06 AM CDT) Triglycerides 263(H) <150 mg/dL 03/06/2021 12:50 AM [facility] Comment: ATP III Classification of Triglycerides: ?<150 mg/dL: ??Normal ? 150 - 199 mg/dL: ??Borderline High ? 200 - 400 mg/dL: ??High ?>500 mg/dL: ??Very High Blood BLOOD SPECIMEN / Unknown Venipuncture / Unknown 03/06/2021 12:06 AM CDT 03/06/2021 12:25 AM CDT Kelvin Stewart MD LAB - CHEMISTRY ORD ERABLES [address] [address], [place] [phone] * (ABNORMAL) BASIC METABOLIC PANEL (CALCIUM TOTAL) (03/06/2021 12:06 AM T) BUN 31(H) 7 - 26 mg/dL 03/06/2021 12:50 AM [facility] Creatinine 1.42(H) 0.71 - 1.16 mg/dL 03/06/2021 12:50 AM [facility] Sodium 142 136 - 145 mmol/L 03/06/2021 12:50 AM [facility] Potassium 4.0 3.5 - 4.5 mmol/L 03/06/2021 12:50 AM [facility] Chloride 111(H) 98 - 107 mmol/L 03/06/2021 12:50 AM [facility] CO2 19(L) 22 - 29 mmol/L 03/06/2021 12:50 AM [facility] Glucose 124(H) 70 - 115 mg/dL 03/06/2021 12:50 AM [facility] Calcium 8.8 8.4 - 10.2 mg/dL 03/06/2021 12:50 AM [facility] Anion Gap 16 8 - 18 03/06/2021 12:50 AM [facility] BUN/Creatinine Ratio 22 7 - 23 03/06/2021 12:50 AM [facility] Osmolality Calculated 302(H) 270 - 300 mOsm/kg 03/06/2021 12:50 AM [facility] eGFR by CKD-EPI 64(L) >=90 mL/min/1.7 3 m2 03/06/2021 12:50 AM [facility] Blood BLOOD SPECIMEN / Unknown Venipuncture / Unknown 03/06/2021 12:06 AM CDT 03/06/2021 12:25 AM T Fredy Felipe MD LAB - CHEMISTRY JOSE ENRIQUE VELA [facility] Organization Address City/State/ZIP Co de Phone Number [facility] [address] [place] [address], [facility] [phone] * (ABNORMAL) BLOOD GASES ART + COOX PANEL (03/06/2021 12:06 AM [facility]) pH Arterial 7.42 7.35 - 7.45 pH 03/06/2021 12:36 AM [facility] pO2 Arterial 189(H) 80 - 100 mmHg 03/06/2021 12:36 AM [facility] pCO2 Arterial 30(L) 35 - 45 mmHg 12:36 AM [facility] HCO3 Arterial 20 20 - 30 mmol/l 03/06/2021 12:36 AM [facility] BE Arterial -4.1(L) -2.0 - 2.0 mmol/L 03/06/2021 12:36 AM [facility] Oxyhemoglobin Arterial 97.2 % 03/06/2021 12:36 AM [facility] Dexoyhemoglobin (HHB) % 0.0 % 03/06/2021 12:36 AM [facility] Methemoglobin <0.8 0.0 - 2.0 % 03/06/2021 12:36 AM [facility] Carboxyhemoglobin 2.4(H) 0.0 - 2.0 % 2020 12:36 AM [facility] O2 Content Arterial 15.1 Interpret within clinical context mg/dL 03/06/2021 12:36 AM [facility] Hemoglobin by COOX 10.7(L) 12.0 - 17.6 g/dL 03/06/2021 12:36 AM [facility] O2 Saturation Arterial 100 90 - 100 % 03/06/2021 12:36 AM [facility] FI O2 Arterial 80.0 % 03/06/2021 12:36 AM [facility] Blood, arterial ARTERIAL BLOOD SPECIMEN / Unknown Arterial Puncture / Unknown 03/06/2021 12:06 AM [facility] 03/06/2021 12:22 AM [facility] - 03/06/2021 12:36 AM [facility] Carboxyhemoglobin Normal Concentration: Non-smokers: 0-2%; Smokers: 0-9%; Toxic: >20% Fredy Felipe MD LAB - BLOOD GASES OR DERABLES Performing Organization Address [facility]/ZIP Co de Phone Number [phone] [place] [address], [facility] [phone] * (ABNORMAL) PT-INR [facility] (03/06/2021 12:06 AM CDT) PT 15.7(H) 12.1 - 14.8 Seconds 03/06/2021 12:43 AM CDT [facility] INR 1.3 See Comment 03/06/2021 12:43 AM CDT [facility] Comment:The suggested therap eutic range [...] OR DERABLES Performing Organization Address [facility]/ZIP Co de Phone Number [address] [address], [facility] [phone] * PHOSPHORUS BLOOD (03/06/2021 12:06 AM CDT) Phosphorus 3.3 2.8 - 5.1 mg/dL 03/06/2021 12:50 AM CDT [facility] Blood BLOOD SPECIMEN / Unknown Venipuncture / Unknown 03/06/2021 12:06 AM CDT 03/06/2021 12:25 AM CDT Fredy Felipe MD LAB - CHEMISTRY ORDE RABLES Performing Organization Address City/[facility]/ZIP Co de Phone Number [address] [address], [facility] [phone] * MAGNESIUM BLOOD (03/06/2021 12:06 AM CDT) Magnesium 2.1 1.6 - 2.6 mg/dL 03/06/2021 12:50 AM CDT [facility] Blood BLOOD SPECIMEN / Unknown Venipuncture / Unknown 03/06/2021 12:06 AM CDT 03/06/2021 12:25 AM CDT Fredy Felipe MD LAB - CHEMISTRY JOSE ENRIQUE VELA Performing Organization Address [facility] Co de Phone Number [address] [address], [facility] [phone] * (ABNORMAL) CALCIUM IONIZED WHOLE BLOOD (03/06/2021 12:06 AM CDT) Calcium Ionized 1.12 mmol/L 03/06/2021 12:40 AM CDT [facility] pH 7.43 7.35 - 7.45 pH 03/06/2021 12:40 AM CDT [facility] Ionized Calcium pH Adjusted 1.13(L) 1.19 - 1.34 mmol/L 03/06/2021 12:40 AM CDT [facility] Blood BLOOD SPECIMEN / Unknown Venipuncture / Unknown 03/06/2021 12:06 AM CDT 03/06/2021 12:22 AM CDT Fredy Felipe MD LAB - CHEMISTRY JOSE ENRIQUE VELA Performing Organization Address [facility] de Phone Number [address] [address], [facility] [phone] * XR CHEST 1VW PORTABLE (03/05/2021 4:54 [...] 22.9 10? 3 /uL 03/05/2021 12:[address] [facility] Total Cell Count 100 03/05/2021 12:[address] [facility] Neutrophils Absolute Manual 19.47(H) 1.60 - 7.00 10? 3 /uL 03/05/2021 12:[address] [facility] Comment:(BANDS+SEGS) x WBC = NEUT # (ANC) Lymphocyte Absolute Manual 1.15 1.10 - 3.90 10? 3 /uL 03/05/2021 12:32 AM CDT [facility] Monocytes Absolute Manual 1.83(H) 0.26 - 1.07 10? 3 /uL 03/05/2021 12:32 AM T [facility] Eosinophils Absolute Manual 0.46 0.00 - 0.47 10? 3 /uL 03/05/2021 12:32 AM [facility] Neutrophil % Manual 85(H) 35 - 70 % 03/05/2021 12:32 AM [facility] Lymphocyte % Manual 5(L) 20 - 43 % 03/05/2021 12:32 AM [facility] Monocytes % Manual 8 5 - 13 % 03/05/2021 12:32 AM [facility] Eosinophils % Manual 2 0 - 6 % 03/05/2021 12:32 AM [facility] Platelet Estimate Increased( A) Adequate 03/05/2021 12:32 AM [facility] RBC Morphology Normal 03/05/2021 12:32 AM [facility] Blood BLOOD SPECIMEN / Unknown Venipuncture / Unknown 03/04/2021 11:48 PM CDT 03/04/2021 11:53 PM CDT Fredy Felipe MD LAB - HEMATOLOGY ORD ERABLES Performing Organization Address City/[facility] Co de Phone Number [facility] [address] [place] [phone] [phone] * (ABNORMAL) CBC W AUTO DIFFERENTIAL (03/04/2021 11:48 PM CDT) WBC 22.9(H) 3.5 - 10.5 10? 3 /uL 03/05/2021 12:06 AM [facility] RBC 3.89(L) 4.30 - 5.70 10? 6 /uL 03/05/2021 12:06 AM [facility] Hemoglobin 10.7(L) 12.0 - 17.6 g/dL 03/05/2021 12:06 AM [facility] Hematocrit 33.9(L) 35.2 - 51.7 % 03/05/2021 12:06 AM [facility] MCV 87.1 80.7 - 98.3 fL 03/05/2021 12:06 AM [facility] MCH 27.5 26.7 - 34.0 pg 03/05/2021 12:06 AM [facility] MCHC 31.6 30.8 - 35.9 g/dL 03/05/2021 12:06 AM [facility] Platelet Count 712(H) 150 - 400 10? 3 /uL 03/05/2021 12:06 AM [facility] RDW-SD 44.3 36.0 - 50.0 fL 03/05/2021 12:06 AM [facility] RDW-CV 14.0 11.2 - 14.8 % 03/05/2021 12:06 AM [facility] MPV 8.9(L) 9.4 - 12.9 fL 03/05/2021 12:06 AM [facility] nRBC Absolute 0.00 0 10? 3 /uL 03/05/2021 12:06 AM [facility] nRBC Auto 0.0 0 /100 WBC 03/05/2021 12:06 AM [facility] Immature Platelet Fraction 1.2 1.1 - 6.2 % 03/05/2021 12:06 AM [facility] Blood BLOOD SPECIMEN / Unknown Venipuncture / Unknown 03/04/2021 11:48 PM CDT 03/04/2021 11:53 PM CDT Fredy Felipe MD LAB - HEMATOLOGY ORD ERABLES [facility] [address] [place] [address], [facility] [phone] * (ABNORMAL) BASIC METABOLIC PANEL (CALCIUM TOTAL) (03/04/2021 11:48 PM CDT) BUN 27(H) 7 - 26 mg/dL 03/05/2021 12:16 AM [facility] Creatinine 1.27(H) 0.71 - 1.16 mg/dL 03/05/2021 12:16 AM [facility] Sodium 142 136 - 145 mmol/L 03/05/2021 12:16 AM [facility] Potassium 3.9 3.5 - 4.5 mmol/L 03/05/2021 12:16 AM [facility] Chloride 111(H) 98 - 107 mmol/L 03/05/2021 12:16 AM [facility] CO2 19(L) 22 - 29 mmol/L 03/05/2021 12:16 AM [facility] Glucose 116(H) 70 - 115 mg/dL 03/05/2021 12:16 AM [facility] Calcium 9.2 8.4 - 10.2 mg/dL 03/05/2021 12:16 AM [facility] Anion Gap 16 8 - 18 03/05/2021 12:16 AM [facility] BUN/Creatinine Ratio 21 7 - 23 03/05/2021 12:16 AM [facility] Osmolality Calculated 300 270 - 300 mOsm/kg 03/05/2021 12:16 AM [facility] eGFR by CKD-EPI 73(L) >=90 mL/min/1.7 3 m2 03/05/2021 12:16 AM [facility] Blood BLOOD SPECIMEN / Unknown Venipuncture / Unknown 03/04/2021 11:48 PM CDT 03/04/2021 11:53 PM CDT Fredy Felipe MD LAB - CHEMISTRY JOSE ENRIQUE VELA [facility] Organization Address City/State/ZIP Co de Phone Number [facility] [address] [place] [address], [facility] [phone] * (ABNORMAL) BLOOD GASES ART + COOX PANEL (03/04/2021 11:48 PM CDT) pH Arterial 7.46(H) 7.35 - 7.45 pH 03/04/2021 11:57 PM [facility] pO2 Arterial 190(H) 80 - 100 mmHg 03/04/2021 11:57 PM [facility] pCO2 Arterial 28(L) 35 - 45 mmHg 11:57 PM [facility] HCO3 Arterial 20 20 - 30 mmol/l 03/04/2021 11:57 PM [facility] BE Arterial -2.9(L) -2.0 - 2.0 mmol/L 03/04/2021 11:57 PM [facility] Oxyhemoglobin Arterial 96.4 % 03/04/2021 11:57 PM [facility] Dexoyhemoglobin (HHB) % 0.5 % 03/04/2021 11:57 PM [facility] Methemoglobin 0.8 0.0 - 2.0 % 03/04/2021 11:57 PM [facility] Carboxyhemoglobin 2.3(H) 0.0 - 2.0 % 2020 11:57 PM [facility] O2 Content Arterial 16.4 Interpret within clinical context mg/dL 03/04/2021 11:57 PM [facility] Hemoglobin by COOX 11.8(L) 12.0 - 17.6 g/dL 03/04/2021 11:57 PM [facility] O2 Saturation Arterial 100 90 - 100 % 03/04/2021 11:57 PM [facility] FI O2 Arterial 40.0 % 03/04/2021 11:57 PM [facility] Blood, arterial ARTERIAL BLOOD SPECIMEN / Unknown Arterial Puncture / Unknown 03/04/2021 11:48 PM CDT 03/04/2021 11:53 PM CDT [facility] - 03/04/2021 11:57 PM CDT Carboxyhemoglobin Normal Concentration: Non-smokers: 0-2%; Smokers: 0-9%; Toxic: >20% Fredy Felipe MD LAB - BLOOD GASES OR DERABLES Performing Organization Address City/State/[facility] Co de Phone Number [facility] [address] [place] [address], [facility] [phone] * (ABNORMAL) PT-INR [facility] (03/04/2021 11:48 PM CDT) PT 15.1(H) 12.1 - 14.8 Seconds 03/05/2021 12:12 AM [facility] INR 1.2 See Comment 03/05/2021 12:12 AM [facility] Comment:The suggested therap eutic range for standard coumadin (warfarin) therapy is an INR of 2.0-3.0. For high-risk patients (Mechanical Mitral Valve Prosthesis, etc.), the suggested prophylactic therapeutic range is an INR of 2.5-3.5. Blood BLOOD SPECIMEN / Unknown Venipuncture / Unknown 03/04/2021 11:48 PM CDT 03/04/2021 11:53 PM CDT Fredy Felipe MD LAB - COAGULATION OR DERABLES Performing Organization Address City/[facility]/ZIP Co de Phone Number [address] [address], [place] [phone] * PHOSPHORUS BLOOD (03/04/2021 11:48 PM CDT) Phosphorus 3.2 2.8 - 5.1 mg/dL 03/05/2021 12:16 AM CDT [facility] Blood BLOOD SPECIMEN / Unknown Venipuncture / Unknown 03/04/2021 11:48 PM CDT 03/04/2021 11:53 PM CDT Fredy Felipe MD LAB - CHEMISTRY JOSE ENRIQUE VELA Performing Organization Address [facility] Co de Phone Number [address] [address], [facility] [phone] * MAGNESIUM BLOOD (03/04/2021 11:48 PM CDT) Magnesium 2.2 1.6 - 2.6 mg/dL 03/05/2021 12:16 AM CDT [facility] Blood BLOOD SPECIMEN / Unknown Venipuncture / Unknown 03/04/2021 11:48 PM CDT 03/04/2021 11:53 PM CDT Fredy Felipe MD LAB - CHEMISTRY JOSE ENRIQUE VELA Performing Organization Address City/[facility]/ZIP Co de Phone Number [address] [address], [facility] [phone] * (ABNORMAL) CALCIUM IONIZED WHOLE BLOOD (03/04/2021 11:48 PM CDT) Calcium Ionized 1.22 mmol/L 03/04/2021 11:57 PM CDT [facility] pH 7.47(H) 7.35 - 7.45 pH 03/04/2021 11:57 PM CDT [facility] Ionized Calcium pH Adjusted 1.26 1.19 - 1.34 mmol/L 03/04/2021 11:57 PM CDT [facility] Blood BLOOD SPECIMEN / Unknown Venipuncture / Unknown 03/04/2021 11:48 PM CDT 03/04/2021 11:53 PM CDT Fredy Felipe MD LAB - CHEMISTRY JOSE ENRIQUE VELA [facility] [address] [place] [address], [facility] [phone] * CULTURE MRSA (03/04/2021 12:43 PM CDT) Culture Negative for methicillin-resist ant Staphylococcus aureus (MRSA) CALISTA 03/05/2021 8:38 PM CDT [facility] MICROBIOLOGY Microbiology SPECIMEN FROM NASAL FOSSAE / Unknown Collection / Unknown 03/04/2021 12:43 PM CDT 03/04/2021 12:52 PM CDT Kelvin Stewart MD LAB - MICROBIOLOGY ORDERABLES [facility] [address] [place] [address], [facility] [phone] * CULTURE SPUTUM+GRAM STAIN (03/04/2021 5:47 AM [...] Rare Gram-positive cocci 03/06/2021 6:42 AM CDT [facility] MICROBIOLOGY Microbiology SPUTUM / Unknown Collection / Unknown 03/04/2021 5:47 AM CDT 03/04/2021 5:50 AM CDT Fredy Felipe MD LAB - MICROBIOLOGY O RDERABLES [facility] [address] [place] [address], [facility] [phone] * XR CHEST 1VW PORTABLE (03/04/2021 5:27 [...] is normal. Dictated by Alex Verdugo MD (cath lab radiology technician). I, Dr. OSWALDO CLEMONS have personally reviewed [...] is normal. Dictated by Alex Verdugo MD (cath lab radiology technician). I, Dr. OSWALDO CLEMONS have personally reviewed and interpreted this examination/study. This report was electronically signed by OSWALDO CLEMONS on 03/04/2021 4:04 PM . Fredy Felipe MD DIAGNOSTIC IMAGING O RDERABLES * (ABNORMAL) DIFFERENTIAL MANUAL (03/04/2021 1:04 AM CDT) WBC (corrected for NRBC) 20.3 10? 3 /uL 03/04/2021 1:46 AM [facility] Total Cell Count 100 03/04/2021 1:46 AM [facility] Neutrophils Absolute Manual 17.66(H) 1.60 - 7.00 10? 3 /uL 03/04/2021 1:46 AM [facility] Comment:(BANDS+SEGS) x WBC = NEUT # (ANC) Lymphocyte Absolute Manual 0.81(L) 1.10 - 3.90 10? 3 /uL 03/04/2021 1:[address] [facility] Monocytes Absolute Manual 1.02 0.26 - 1.07 10? 3 /uL 03/04/2021 1:[address] [facility] Eosinophils Absolute Manual 0.61(H) 0.00 - 0.47 10? 3 /uL 03/04/2021 1:46 AM [facility] Neutrophil % Manual 87(H) 35 - 70 % 03/04/2021 1:46 AM [facility] Lymphocyte % Manual 4(L) 20 - 43 % 03/04/2021 1:[address] [facility] Monocytes % Manual 5 5 - 13 % 03/04/2021 1:[address] [facility] Eosinophils % Manual 3 0 - 6 % 03/04/2021 1:46 AM [facility] Atypical Lymphocyte % Manual 1(H) 0 % 03/04/2021 1:46 AM [facility] Platelet Estimate Increased( A) Adequate 03/04/2021 1:46 AM [facility] Comment:Platelet clumpled on the smear but appear increased RBC Morphology Normal 03/04/2021 1:46 AM [facility] Blood BLOOD SPECIMEN / Unknown Venipuncture / Unknown 03/04/2021 1:04 AM CDT 03/04/2021 1:16 AM CDT Fredy Felipe MD LAB - HEMATOLOGY ORD ERABLES [facility] [address] [place] [address], [facility] [phone] * (ABNORMAL) CBC W AUTO DIFFERENTIAL (03/04/2021 1:04 AM CDT) WBC 20.3(H) 3.5 - 10.5 10? 3 /uL 03/04/2021 1:21 AM [facility] RBC 3.97(L) 4.30 - 5.70 10? 6 /uL 03/04/2021 1:21 AM [facility] Hemoglobin 10.7(L) 12.0 - 17.6 g/dL 03/04/2021 1:21 AM [facility] Hematocrit 33.9(L) 35.2 - 51.7 % 03/04/2021 1:21 AM [facility] MCV 85.4 80.7 - 98.3 fL 03/04/2021 1:21 AM [facility] MCH 27.0 26.7 - 34.0 pg 03/04/2021 1:21 AM [facility] MCHC 31.6 30.8 - 35.9 g/dL 03/04/2021 1:21 AM [facility] Platelet Count 665(H) 150 - 400 10? 3 /uL 03/04/2021 1:21 AM [facility] RDW-SD 43.2 36.0 - 50.0 fL 03/04/2021 1:21 AM [facility] RDW-CV 13.7 11.2 - 14.8 % 03/04/2021 1:21 AM [facility] MPV 8.8(L) 9.4 - 12.9 fL 03/04/2021 1:21 AM [facility] nRBC Absolute 0.00 0 10? 3 /uL 03/04/2021 1:21 AM [facility] nRBC Auto 0.0 0 /100 WBC 03/04/2021 1:21 AM [facility] Blood BLOOD SPECIMEN / Unknown Venipuncture / Unknown 03/04/2021 1:04 AM CDT 03/04/2021 1:16 AM CDT Fredy Felipe MD LAB - HEMATOLOGY ORD ERABLES [facility] [address] [place] [address], [facility] [phone] * (ABNORMAL) BASIC METABOLIC PANEL (CALCIUM TOTAL) (03/04/2021 1:04 AM CDT) BUN 25 7 - 26 mg/dL 03/04/2021 1:40 AM [facility] Creatinine 1.28(H) 0.71 - 1.16 mg/dL 03/04/2021 1:40 AM [facility] Sodium 141 136 - 145 mmol/L 03/04/2021 1:40 AM [facility] Potassium 3.6 3.5 - 4.5 mmol/L 03/04/2021 1:40 AM [facility] Chloride 109(H) 98 - 107 mmol/L 03/04/2021 1:40 AM [facility] CO2 19(L) 22 - 29 mmol/L 03/04/2021 1:40 AM [facility] Glucose 117(H) 70 - 115 mg/dL 03/04/2021 1:40 AM [facility] Calcium 9.2 8.4 - 10.2 mg/dL 03/04/2021 1:40 AM [facility] Anion Gap 17 8 - 18 03/04/2021 1:40 AM [facility] BUN/Creatinine Ratio 20 7 - 23 03/04/2021 1:40 AM [facility] Osmolality Calculated 297 270 - 300 mOsm/kg 03/04/2021 1:40 AM [facility] eGFR by CKD-EPI 72(L) >=90 mL/min/1.7 3 m2 03/04/2021 1:40 AM [facility] Blood BLOOD SPECIMEN / Unknown Venipuncture / Unknown 03/04/2021 1:04 AM CDT 03/04/2021 1:16 AM CDT Fredy Felipe MD LAB - CHEMISTRY JOSE ENRIQUE VELA [facility] Organization Address City/State/ZIP Co de Phone Number [facility] [address] [place] [address], [facility] [phone] * (ABNORMAL) BLOOD GASES ART + COOX PANEL (03/04/2021 1:04 AM CDT) pH Arterial 7.43 7.35 - 7.45 pH 03/04/2021 1:17 AM [facility] pO2 Arterial 154(H) 80 - 100 mmHg 03/04/2021 1:17 AM [facility] pCO2 Arterial 32(L) 35 - 45 mmHg 1:17 AM [facility] HCO3 Arterial 21 20 - 30 mmol/l 03/04/2021 1:17 AM [facility] BE Arterial -2.4(L) -2.0 - 2.0 mmol/L 03/04/2021 1:17 AM [facility] Oxyhemoglobin Arterial 97.8 % 03/04/2021 1:17 AM [facility] Dexoyhemoglobin (HHB) % 0.3 % 03/04/2021 1:17 AM [facility] Methemoglobin 0.8 0.0 - 2.0 % 03/04/2021 1:17 AM [facility] Carboxyhemoglobin 1.2 0.0 - 2.0 % 2020 1:17 AM [facility] O2 Content Arterial 15.8 Interpret within clinical context mg/dL 03/04/2021 1:17 AM [facility] Hemoglobin by COOX 11.3(L) 12.0 - 17.6 g/dL 03/04/2021 1:17 AM [facility] O2 Saturation Arterial 100 90 - 100 % 03/04/2021 1:17 AM [facility] FI O2 Arterial 40.0 % 03/04/2021 1:17 AM CDT [facility] Blood, arterial ARTERIAL BLOOD SPECIMEN / Unknown Arterial Puncture / Unknown 03/04/2021 1:04 AM CDT 03/04/2021 1:15 AM CDT Narrative [facility] - 03/04/2021 1:17 AM CDT Carboxyhemoglobin Normal Concentration: Non-smokers: 0-2%; Smokers: 0-9%; Toxic: >20% Fredy Felipe MD LAB - BLOOD GASES OR DERABLES [address] [address], [facility] [phone] * (ABNORMAL) PT-INR [facility] (03/04/2021 1:04 AM CDT) PT 15.0(H) 12.1 - 14.8 Seconds 03/04/2021 1:31 AM CDT [facility] INR 1.2 See Comment 03/04/2021 1:31 AM T [facility] Comment:The suggested therap eutic range for standard coumadin (warfarin) therapy is an INR of 2.0-3.0. For high-risk patients (Mechanical Mitral Valve Prosthesis, etc.), the suggested prophylactic therapeutic range is an INR of 2.5-3.5. Blood BLOOD SPECIMEN / Unknown Venipuncture / Unknown 03/04/2021 1:04 AM CDT 03/04/2021 1:12 AM CDT Frdey Felipe MD LAB - COAGULATION OR DERABLES [facility] [address] [place] [id number], [facility] [phone] * PHOSPHORUS BLOOD (03/04/2021 1:04 AM CDT) Phosphorus 3.0 2.8 - 5.1 mg/dL 03/04/2021 1:40 AM T [facility] Blood BLOOD SPECIMEN / Unknown Venipuncture / Unknown 03/04/2021 1:04 AM CDT 03/04/2021 1:16 AM CDT Fredy Felipe MD LAB - CHEMISTRY JOSE ENRIQUE VELA [address] [address], [place] [phone] * MAGNESIUM BLOOD (03/04/2021 1:04 AM CDT) Magnesium 2.1 1.6 - 2.6 mg/dL 03/04/2021 1:40 AM CDT [facility] Blood BLOOD SPECIMEN / Unknown Venipuncture / Unknown 03/04/2021 1:04 AM CDT 03/04/2021 1:16 AM CDT Fredy Felipe MD LAB - CHEMISTRY JOSE ENRIQUE VELA Performing Organization Address [facility]/ZIP Co de Phone Number [address] [address], [place] [phone] * CALCIUM IONIZED WHOLE BLOOD (03/04/2021 1:04 AM CDT) Calcium Ionized 1.20 mmol/L 03/04/2021 1:19 AM CDT [facility] pH 7.41 7.35 - 7.45 pH 03/04/2021 1:19 AM CDT [facility] Ionized Calcium pH Adjusted 1.20 1.19 - 1.34 mmol/L 03/04/2021 1:19 AM CDT [facility] Blood BLOOD SPECIMEN / Unknown Venipuncture / Unknown 03/04/2021 1:04 AM CDT 03/04/2021 1:15 AM CDT Fredy Felipe MD LAB - CHEMISTRY JOSE ENRIQUE VELA Performing Organization Address City/[facility]/ZIP Co de Phone Number [address] [address], [place] [phone] * CULTURE BLOOD (03/03/2021 8:20 AM CDT) Culture No growth day 5 [place] 03/08/2021 2:00 PM CDT [facility] Blood PERIPHERAL BLOOD / Unknown Venipuncture / Unknown 03/03/2021 8:20 AM CDT 03/03/2021 8:46 AM CDT Fredy Felipe MD LAB - MICROBIOLOGY O [place]FF[place] Performing Organization Address [facility] Co de Phone Number [facility] [address] [place] [address], [facility] [phone] * CULTURE BLOOD (03/03/2021 8:00 AM CDT) Culture No growth day 5 [place] 03/08/2021 2:00 PM CDT [facility] Blood PERIPHERAL BLOOD / Unknown Venipuncture / Unknown 03/03/2021 8:00 AM CDT 03/03/2021 8:46 AM CDT Fredy Felipe MD LAB - MICROBIOLOGY O TIFF[place] Performing Organization Address [facility] de Phone Number [facility] [address] [place] [address], [facility] [phone] * XR CHEST 1VW PORTABLE (03/03/2021 4:56 [...] DO (resident). I, Dr. NAOMY LAZO MD, [facility] have personally reviewed and interpreted this [...] Ivette Fortune DO (resident). IDr. NAOMY MD, [facility] have personally reviewedand interpreted this examination/study. This report was electronically signed by NAOMY LAZO MD, [facility] on 03/03/2021 3:48 PM . Fredy Felipe MD DIAGNOSTIC IMAGING O RDERABLES * (ABNORMAL) DIFFERENTIAL MANUAL (03/02/2021 11:41 PM CDT) WBC (corrected for NRBC) 20.3 10? 3 /uL 03/03/2021 12:26 AM CDT [facility] Total Cell Count 100 03/03/2021 12:[address] [facility] Neutrophils Absolute Manual 17.26(H) 1.60 - 7.00 10? 3 /uL 03/03/2021 12:26 AM T [facility] Comment:(BANDS+SEGS) x WBC = NEUT # (ANC) Lymphocyte Absolute Manual 1.22 1.10 - 3.90 10? 3 /uL 03/03/2021 12:26 AM [facility] Monocytes Absolute Manual 1.42(H) 0.26 - 1.07 10? 3 /uL 03/03/2021 12:26 AM [facility] Eosinophils Absolute Manual 0.41 0.00 - 0.47 10? 3 /uL 03/03/2021 12:26 AM [facility] Band % Manual 1 0 - 10 % 03/03/2021 12:26 AM [facility] Neutrophil % Manual 84(H) 35 - 70 % 03/03/2021 12:26 AM [facility] Lymphocyte % Manual 6(L) 20 - 43 % 03/03/2021 12:26 AM [facility] Monocytes % Manual 7 5 - 13 % 03/03/2021 12:26 AM [facility] Eosinophils % Manual 2 0 - 6 % 03/03/2021 12:26 AM [facility] Platelet Estimate Increased(A) Adequate 03/03/2021 12:26 AM [facility] RBC Morphology Normal 03/03/2021 12:26 AM [facility] Comment Platelet Platelet clumpled on the smear but appear increased. 03/03/2021 12:26 AM [facility] Blood BLOOD SPECIMEN / Unknown Venipuncture / Unknown 03/02/2021 11:41 PM CDT 03/02/2021 11:45 PM CDT Fredy Felipe MD LAB - HEMATOLOGY ORD ERABLES [facility] [address] [place] [address], [facility] [phone] * (ABNORMAL) TRIGLYCERIDES BLOOD (03/02/2021 11:41 PM CDT) Triglycerides 474(H) <150 mg/dL 03/03/2021 12:10 AM [facility] Comment: ATP III Classification of Triglycerides: ?<150 mg/dL: ??Normal ? 150 - 199 mg/dL: ??Borderline High ? 200 - 400 mg/dL: ??High ?>500 mg/dL: ??Very High Blood BLOOD SPECIMEN / Unknown Venipuncture / Unknown 03/02/2021 11:41 PM CDT 03/02/2021 11:45 PM CDT Kelvin Stewart MD LAB - CHEMISTRY ORD ERABLES [facility] [address] [place] [address], [facility] [phone] * (ABNORMAL) CBC W AUTO DIFFERENTIAL (03/02/2021 11:41 PM CDT) WBC 20.3(H) 3.5 - 10.5 10? 3 /uL 03/02/2021 11:50 PM [facility] RBC 3.67(L) 4.30 - 5.70 10? 6 /uL 03/02/2021 11:50 PM [facility] Hemoglobin 10.2(L) 12.0 - 17.6 g/dL 03/02/2021 11:50 PM [facility] Hematocrit 32.0(L) 35.2 - 51.7 % 03/02/2021 11:50 PM [facility] MCV 87.2 80.7 - 98.3 fL 03/02/2021 11:50 PM [facility] MCH 27.8 26.7 - 34.0 pg 03/02/2021 11:50 PM [facility] MCHC 31.9 30.8 - 35.9 g/dL 03/02/2021 11:50 PM [facility] Platelet Count 623(H) 150 - 400 10? 3 /uL 03/02/2021 11:50 PM [facility] RDW-SD 43.9 36.0 - 50.0 fL 03/02/2021 11:50 PM [facility] RDW-CV 13.7 11.2 - 14.8 % 03/02/2021 11:50 PM [facility] MPV 8.6(L) 9.4 - 12.9 fL 03/02/2021 11:50 PM [facility] nRBC Absolute 0.00 0 10? 3 /uL 03/02/2021 11:50 PM [facility] nRBC Auto 0.0 0 /100 WBC 03/02/2021 11:50 PM [facility] Blood BLOOD SPECIMEN / Unknown Venipuncture / Unknown 03/02/2021 11:41 PM CDT 03/02/2021 11:45 PM CDT Fredy Felipe MD LAB - HEMATOLOGY ORD ERABLES [facility] [address] [place] [address], [facility] [phone] * (ABNORMAL) BASIC METABOLIC PANEL (CALCIUM TOTAL) (03/02/2021 11:41 PM CDT) BUN 19 7 - 26 mg/dL 03/03/2021 12:10 AM [facility] Creatinine 1.30(H) 0.71 - 1.16 mg/dL 03/03/2021 12:10 AM [facility] Sodium 142 136 - 145 mmol/L 03/03/2021 12:10 AM [facility] Potassium 3.7 3.5 - 4.5 mmol/L 03/03/2021 12:10 AM [facility] Chloride 108(H) 98 - 107 mmol/L 03/03/2021 12:10 AM [facility] CO2 21(L) 22 - 29 mmol/L 03/03/2021 12:10 AM [facility] Glucose 104 70 - 115 mg/dL 03/03/2021 12:10 AM [facility] Calcium 9.1 8.4 - 10.2 mg/dL 03/03/2021 12:10 AM [facility] Anion Gap 17 8 - 18 03/03/2021 12:10 AM [facility] BUN/Creatinine Ratio 15 7 - 23 03/03/2021 12:10 AM [facility] Osmolality Calculated 297 270 - 300 mOsm/kg 03/03/2021 12:10 AM [facility] eGFR by CKD-EPI 71(L) >=90 mL/min/1.7 3 m2 03/03/2021 12:10 AM [facility] Blood BLOOD SPECIMEN / Unknown Venipuncture / Unknown 03/02/2021 11:41 PM CDT 03/02/2021 11:45 PM CDT Fredy Felipe MD LAB - CHEMISTRY JOSE ENRIQUE VELA [facility] [address] [place] [address], [facility] [phone] * (ABNORMAL) BLOOD GASES ART + COOX PANEL (03/02/2021 11:41 PM CDT) pH Arterial 7.52(H) 7.35 - 7.45 pH 03/02/2021 11:46 PM [facility] pO2 Arterial 160(H) 80 - 100 mmHg 03/02/2021 11:46 PM [facility] pCO2 Arterial 29(L) 35 - 45 mmHg 11:46 PM [facility] HCO3 Arterial 24 20 - 30 mmol/l 03/02/2021 11:46 PM [facility] BE Arterial 1.4 -2.0 - 2.0 mmol/L 03/02/2021 11:46 PM [facility] Oxyhemoglobin Arterial 96.3 % 03/02/2021 11:46 PM [facility] Dexoyhemoglobin (HHB) % 0.1 % 03/02/2021 11:46 PM [facility] Methemoglobin 0.9 0.0 - 2.0 % 03/02/2021 11:46 PM [facility] Carboxyhemoglobin 2.7(H) 0.0 - 2.0 % 2020 11:46 PM [facility] O2 Content Arterial 15.2 Interpret within clinical context mg/dL 03/02/2021 11:46 PM [facility] Hemoglobin by COOX 11.0(L) 12.0 - 17.6 g/dL 03/02/2021 11:46 PM CDT [facility] O2 Saturation Arterial 100 90 - 100 % 03/02/2021 11:46 PM CDT [facility] FI O2 Arterial 40.0 % 03/02/2021 11:46 PM CDT [facility] Blood, arterial ARTERIAL BLOOD SPECIMEN / Unknown Arterial Puncture / Unknown 03/02/2021 11:41 PM CDT 03/02/2021 11:44 PM CDT Narrative [facility] - 03/02/2021 11:46 PM CDT Carboxyhemoglobin Normal Concentration: Non-smokers: 0-2%; Smokers: 0-9%; Toxic: >20% Fredy Felipe MD LAB - BLOOD GASES OR DERABLES Performing Organization Address [facility] Co de Phone Number [address] [address], [facility] [phone] * PT-INR [facility] (03/02/2021 11:41 PM CDT) PT 14.8 12.1 - 14.8 Seconds 03/03/2021 1:38 AM [facility] INR 1.2 See Comment 03/03/2021 1:38 AM [facility] Comment:The suggested therap eutic range [...] OR DERABLES Performing Organization Address [facility] Co de Phone Number [address] [address], [place] [phone] * PHOSPHORUS BLOOD (03/02/2021 11:41 PM CDT) Phosphorus 4.0 2.8 - 5.1 mg/dL 03/03/2021 12:10 AM CDT [facility] Blood BLOOD SPECIMEN / Unknown Venipuncture / Unknown 03/02/2021 11:41 PM CDT 03/02/2021 11:45 PM CDT Fredy Felipe MD LAB - CHEMISTRY JOSE ENRIQUE VELA [address] [address], [facility] [phone] * MAGNESIUM BLOOD (03/02/2021 11:41 PM CDT) Magnesium 2.1 1.6 - 2.6 mg/dL 03/03/2021 12:10 AM CDT [facility] Blood BLOOD SPECIMEN / Unknown Venipuncture / Unknown 03/02/2021 11:41 PM CDT 03/02/2021 11:45 PM CDT Fredy Felipe MD LAB - CHEMISTRY JOSE ENRIQUE VELA Performing Organization Address City/[facility]/ZIP Co de Phone Number [address] [address], [facility] [phone] * (ABNORMAL) CALCIUM IONIZED WHOLE BLOOD (03/02/2021 11:41 PM CDT) Pathologist [facility] Calcium Ionized 1.21 mmol/L 03/02/2021 11:47 PM CDT [facility] pH 7.49(H) 7.35 - 7.45 pH 03/02/2021 11:47 PM CDT [facility] Ionized Calcium pH Adjusted 1.26 1.19 - 1.34 mmol/L 03/02/2021 11:47 PM CDT [facility] Blood BLOOD SPECIMEN / Unknown Venipuncture / Unknown 03/02/2021 11:41 PM CDT 03/02/2021 11:44 PM CDT Fredy Felipe MD LAB - CHEMISTRY JOSE ENRIQUE VELA [facility] [address] [place] [address], [facility] [phone] * (ABNORMAL) URINALYSIS REFLEX TO MICROSCOPIC NO CULTURE (03/02/2021 6:52 PM CDT) Color UA Janis(A) Straw, Yellow 03/02/2021 7:39 PM T [facility] Clarity UA Slt Cloudy(A) Clear 03/02/2021 7:39 PM [facility] Specific [place] UA 1.031(H) 1.005 - 1.030 03/02/2021 7:39 PM [facility] pH UA 5.0 5.0 - 8.0 pH 03/02/2021 7:39 PM [facility] Protein UA 2+(A) Negative 03/02/2021 7:39 PM [facility] Glucose UA Negative Negative 03/02/2021 7:39 PM [facility] Ketone UA Trace(A) Negative 03/02/2021 7:39 PM [facility] Bilirubin UA Negative Negative 03/02/2021 7:39 PM [facility] Blood UA 2+(A) Negative 03/02/2021 7:39 PM [facility] Nitrite UA Negative Negative 03/02/2021 7:39 PM [facility] Leukocyte Esterase Negative Negative 03/02/2021 7:39 PM [facility] Urobilinogen UA Negative Negative mg/dL 03/02/2021 7:39 PM [facility] RBC UA 21-50(A) None Seen, 0-2, 3-5 /HPF 03/02/2021 7:39 PM [facility] WBC UA 6-10(A) None Seen, 0-5 /HPF 03/02/2021 7:39 PM [facility] Bacteria UA Trace(A) None /HPF 03/02/2021 7:39 PM [facility] Squamous Epithelial Cells UA None Seen None Seen, 0-2, 3-5 /HPF 03/02/2021 7:39 PM [facility] Mucus UA 1+ /LPF 03/02/2021 7:39 PM CDT [facility] Urine URINE SPECIMEN OBTAINED VIA [employer] [facility] / Unknown Collection / Unknown 03/02/2021 6:52 PM CDT 03/02/2021 7:00 PM CDT Narrative [facility] - 03/02/2021 7:39 PM CDT Delilah Stubbs APRN-Tal [facility] - URINALYSIS ORDERABLES [address] [address], [place] [phone] * UREA NITROGEN URINE RANDOM (03/02/2021 6:52 PM CDT) Urea Nitrogen Random Urine 1,057 Not Established mg/dL 03/02/2021 7:33 PM CDT [facility] Urine URINE SPECIMEN OBTAINED BY CLEAN CATCH PROCEDURE / Unknown Collection / Unknown 03/02/2021 6:52 PM CDT 03/02/2021 7:00 PM CDT Delilah Stubbs APRN-C [facility] - URINE CHEMISTRY ORDERABLES Performing Organization Address [facility]/ZIP Co de Phone Number [address] [address], [place] [phone] * CHLORIDE URINE RANDOM (03/02/2021 6:52 PM CDT) Chloride Random Urine 45 Not Established mmol/L 03/02/2021 7:33 PM CDT [facility] Urine URINE SPECIMEN OBTAINED BY CLEAN CATCH PROCEDURE / Unknown Collection / Unknown 03/02/2021 6:52 PM CDT 03/02/2021 7:00 PM CDT Delilah Stubbs APRN-C [facility] - URINE CHEMISTRY ORDERABLES Performing Organization Address City/[facility]/ZIP Co de Phone Number [address] [address], [place] [phone] * LYTES (NA K) URINE RANDOM PANEL (03/02/2021 6:52 PM CDT) Sodium Urine 97 Not Established mmol/L 03/02/2021 7:33 PM CDT [facility] Potassium Urine 36.5 Not Established mmol/L 03/02/2021 7:33 PM CDT [facility] Urine URINE SPECIMEN OBTAINED BY CLEAN CATCH PROCEDURE / Unknown Collection / Unknown 03/02/2021 6:52 PM CDT 03/02/2021 7:00 PM CDT Delilah Stubbs APRN-Tal [facility] - URINE CHEMISTRY ORDERABLES Performing Organization Address City/[facility]/ZIP Co de Phone Number [address] [address], [facility] [phone] * CREATININE URINE RANDOM (03/02/2021 6:52 PM CDT) Creatinine Urine 135 Not Established mg/dL 03/02/2021 7:33 PM CDT [facility] Urine URINE SPECIMEN OBTAINED BY CLEAN CATCH PROCEDURE / Unknown Collection / Unknown 03/02/2021 6:52 PM CDT 03/02/2021 7:00 PM CDT Delilah Stubbs APRN-Tal [facility] - URINE CHEMISTRY ORDERABLES [address] [address], [place] [phone] * (ABNORMAL) HEPATIC FUNCTION PANEL (03/02/2021 6:40 PM CDT) Protein Total 7.2 6.0 - 8.3 g/dL 021 7:40 PM CDT [facility] Albumin 1.8(L) 3.4 - 5.0 g/dL 03/02/2021 7:40 PM CDT [facility] Bilirubin Total 0.6 0.2 - 1.2 mg/dL 02/14 7:40 PM [facility] Bilirubin Conjugated 0.3 0.1 - 0.5 mg/dL 03/02/2021 7:40 PM [facility] Bilirubin Unconjugated 0.3 Unconjugated Bilirubin is a calculated value: Reference ranges have not been established. mg/dL 03/02/2021 7:40 PM [facility] Alkaline Phosphatase 226(H) 40 - 150 U/L 03/02/2021 7:40 PM [facility] ALT 27 5 - 55 U/L 03/02/2021 7:40 PM [facility] AST 46(H) 5 - 34 U/L 03/02/2021 7:40 PM [facility] Albumin/Globulin Ratio 0.3(L) 1.1 - 2.3 03/02/2021 7:40 PM [facility] Blood BLOOD SPECIMEN / Unknown Venipuncture / Unknown 03/02/2021 6:40 PM CDT 03/02/2021 6:46 PM CDT Delilah JEFFERY [facility] - CHEMISTRY ORDERABLES [facility] [address] [place] [address], [facility] [phone] * (ABNORMAL) BASIC METABOLIC PANEL (CALCIUM TOTAL) (03/02/2021 6:40 PM CDT) BUN 20 7 - 26 mg/dL 03/02/2021 7:40 PM [facility] Creatinine 1.26(H) 0.71 - 1.16 mg/dL 03/02/2021 7:40 PM [facility] Sodium 139 136 - 145 mmol/L 03/02/2021 7:40 PM [facility] Potassium 3.8 3.5 - 4.5 mmol/L 03/02/2021 7:40 PM [facility] Chloride 105 98 - 107 mmol/L 03/02/2021 7:40 PM [facility] CO2 22 22 - 29 mmol/L 03/02/2021 7:40 PM [facility] Glucose 84 70 - 115 mg/dL 03/02/2021 7:40 PM [facility] Calcium 9.1 8.4 - 10.2 mg/dL 03/02/2021 7:40 PM [facility] Anion Gap 16 8 - 18 03/02/2021 7:40 PM [facility] BUN/Creatinine Ratio 16 7 - 23 03/02/2021 7:40 PM [facility] Osmolality Calculated 290 270 - 300 mOsm/kg 03/02/2021 7:40 PM [facility] eGFR by CKD-EPI 73(L) >=90 mL/min/1.7 3 m2 03/02/2021 7:40 PM [facility] Blood BLOOD SPECIMEN / Unknown Venipuncture / Unknown 03/02/2021 6:40 PM CDT 03/02/2021 6:46 PM CDT Delilah JEFFERY [facility] - CHEMISTRY ORDERABLES [facility] [address] [place] [address], [facility] [phone] * (ABNORMAL) BLOOD GASES ART + COOX PANEL (03/02/2021 5:54 AM CDT) pH Arterial 7.52(H) 7.35 - 7.45 pH 03/02/2021 5:58 AM [facility] pO2 Arterial 163(H) 80 - 100 mmHg 03/02/2021 5:58 AM [facility] pCO2 Arterial 27(L) 35 - 45 mmHg 5:58 AM [facility] HCO3 Arterial 22 20 - 30 mmol/l 03/02/2021 5:58 AM [facility] BE Arterial 0.0 -2.0 - 2.0 mmol/L 03/02/2021 5:58 AM [facility] Oxyhemoglobin Arterial 96.4 % 03/02/2021 5:58 AM [facility] Dexoyhemoglobin (HHB) % 0.4 % 03/02/2021 5:58 AM CDT [facility] Methemoglobin 0.9 0.0 - 2.0 % 03/02/2021 5:58 AM [facility] Carboxyhemoglobin 2.4(H) 0.0 - 2.0 % 2020 5:58 AM T [facility] O2 Content Arterial 15.1 Interpret within clinical context mg/dL 03/02/2021 5:58 AM [facility] Hemoglobin by COOX 10.9(L) 12.0 - 17.6 g/dL 03/02/2021 5:58 AM [facility] O2 Saturation Arterial 100 90 - 100 % 03/02/2021 5:58 AM [facility] FI O2 Arterial 40.0 % 03/02/2021 5:58 AM T [facility] Blood, arterial ARTERIAL BLOOD SPECIMEN / Unknown Arterial Puncture / Unknown 03/02/2021 5:54 AM CDT 03/02/2021 5:56 AM CDT Narrative [facility] - 03/02/2021 5:58 AM CDT Carboxyhemoglobin Normal Concentration: Non-smokers: 0-2%; Smokers: 0-9%; Toxic: >20% Fredy Felipe MD LAB - BLOOD GASES OR DERABLES [facility] [address] [place] [address], [facility] [phone] * XR CHEST 1VW PORTABLE (03/02/2021 4:22 [...] but stable. Dictated by Uyen Garcia MD (cath lab radiology technician). This report was approved ??by Uyen Garcia [...] but stable. Dictated by Uyen Garcia MD (cath lab radiology technician). This report was approved by Uyen Garcia on 03/02/2021 11:30 AM . I, Dr. JASWINDER CARRION have personally reviewed and interpreted this examination/study. This report was electronically signed by JASWINDER CARRION on 03/02/2021 11:30 AM . Fredy Felipe MD DIAGNOSTIC IMAGING O RDERABLES * (ABNORMAL) DIFFERENTIAL MANUAL (03/01/2021 11:16 PM [facility]) WBC (corrected for NRBC) 17.9 10? 3 /uL 03/02/2021 12:17 AM [facility] Total Cell Count 100 03/02/2021 12:17 AM [facility] Neutrophils Absolute Manual 14.50(H) 1.60 - 7.00 10? 3 /uL 03/02/2021 12:17 AM [facility] Comment:(BANDS+SEGS) x WBC = NEUT # (ANC) Lymphocyte Absolute Manual 0.36(L) 1.10 - 3.90 10? 3 /uL 03/02/2021 12:17 AM [facility] Monocytes Absolute Manual 2.51(H) 0.26 - 1.07 10? 3 /uL 03/02/2021 12:17 AM [facility] Eosinophils Absolute Manual 0.36 0.00 - 0.47 10? 3 /uL 03/02/2021 12:17 AM [facility] Basophil Absolute Manual 0.18(H) 0.00 - 0.08 10? 3 /uL 03/02/2021 12:17 AM [facility] Neutrophil % Manual 81(H) 35 - 70 % 03/02/2021 12:17 AM [facility] Lymphocyte % Manual 2(L) 20 - 43 % 03/02/2021 12:17 AM [facility] Monocytes % Manual 14(H) 5 - 13 % 03/02/2021 12:17 AM [facility] Eosinophils % Manual 2 0 - 6 % 03/02/2021 12:17 AM [facility] Basophils % Manual 1 0 - 2 % 03/02/2021 12:17 AM [facility] Platelet Estimate Increased( A) Adequate 03/02/2021 12:17 AM [facility] RBC Morphology Normal 03/02/2021 12:17 AM [facility] Blood BLOOD SPECIMEN / Unknown Venipuncture / Unknown 03/01/2021 11:16 PM CDT 03/01/2021 11:21 PM CDT Fredy Felipe MD LAB - HEMATOLOGY ORD ERABLES [facility] [address] [place] [address], [place] [phone] * (ABNORMAL) HEPATIC FUNCTION PANEL (03/01/2021 11:16 PM CDT) Pathologist [facility] Protein Total 6.7 6.0 - 8.3 g/dL 021 11:[address] [facility] Albumin 1.5(L) 3.4 - 5.0 g/dL 03/01/2021 11:[address] [facility] Bilirubin Total 0.6 0.2 - 1.2 mg/dL 02/14 11:[address] [facility] Bilirubin Conjugated 0.5 0.1 - 0.5 mg/dL 03/01/2021 11:[address] [facility] Bilirubin Unconjugated 0.1 Unconjugated Bilirubin is a calculated value: Reference ranges have not been established. mg/dL 03/01/2021 11:46 PM [facility] Alkaline Phosphatase 270(H) 40 - 150 U/L 03/01/2021 11:[address] [facility] ALT 32 5 - 55 U/L 03/01/2021 11:[address] [facility] AST 58(H) 5 - 34 U/L 03/01/2021 11:[address] [facility] Albumin/Globulin Ratio 0.3(L) 1.1 - 2.3 03/01/2021 11:[address] [facility] Blood BLOOD SPECIMEN / Unknown Venipuncture / Unknown 03/01/2021 11:16 PM CDT 03/01/2021 11:21 PM CDT Fredy Felipe MD LAB - CHEMISTRY JOSE ENRIQUE VELA [facility] [address] [place] [address], [place] [phone] * (ABNORMAL) CBC W AUTO DIFFERENTIAL (03/01/2021 11:16 PM CDT) WBC 17.9(H) 3.5 - 10.5 10? 3 /uL 03/01/2021 11:29 PM [facility] RBC 3.85(L) 4.30 - 5.70 10? 6 /uL 03/01/2021 11:29 PM [facility] Hemoglobin 10.6(L) 12.0 - 17.6 g/dL 03/01/2021 11:29 PM [facility] Hematocrit 33.0(L) 35.2 - 51.7 % 03/01/2021 11:29 PM [facility] MCV 85.7 80.7 - 98.3 fL 03/01/2021 11:29 PM [facility] MCH 27.5 26.7 - 34.0 pg 03/01/2021 11:29 PM [facility] MCHC 32.1 30.8 - 35.9 g/dL 03/01/2021 11:29 PM [facility] Platelet Count 615(H) 150 - 400 10? 3 /uL 03/01/2021 11:29 PM [facility] RDW-SD 42.8 36.0 - 50.0 fL 03/01/2021 11:29 PM [facility] RDW-CV 13.7 11.2 - 14.8 % 03/01/2021 11:29 PM [facility] MPV 8.7(L) 9.4 - 12.9 fL 03/01/2021 11:29 PM [facility] nRBC Absolute 0.00 0 10? 3 /uL 03/01/2021 11:29 PM [facility] nRBC Auto 0.0 0 /100 WBC 03/01/2021 11:29 PM [facility] Blood BLOOD SPECIMEN / Unknown Venipuncture / Unknown 03/01/2021 11:16 PM CDT 03/01/2021 11:21 PM T Fredy Felipe MD LAB - HEMATOLOGY [facility] [address] [place] [address], [facility] [phone] * (ABNORMAL) BASIC METABOLIC PANEL (CALCIUM TOTAL) (03/01/2021 11:16 PM CDT) BUN 21 7 - 26 mg/dL 03/01/2021 11:46 PM [facility] Creatinine 1.35(H) 0.71 - 1.16 mg/dL 03/01/2021 11:46 PM [facility] Sodium 142 136 - 145 mmol/L 03/01/2021 11:46 PM [facility] Potassium 3.7 3.5 - 4.5 mmol/L 03/01/2021 11:46 PM [facility] Chloride 108(H) 98 - 107 mmol/L 03/01/2021 11:46 PM [facility] CO2 20(L) 22 - 29 mmol/L 03/01/2021 11:46 PM [facility] Glucose 93 70 - 115 mg/dL 03/01/2021 11:46 PM [facility] Calcium 9.0 8.4 - 10.2 mg/dL 03/01/2021 11:46 PM [facility] Anion Gap 18 8 - 18 03/01/2021 11:46 PM [facility] BUN/Creatinine Ratio 16 7 - 23 03/01/2021 11:46 PM [facility] Osmolality Calculated 297 270 - 300 mOsm/kg 03/01/2021 11:46 PM [facility] eGFR by CKD-EPI 68(L) >=90 mL/min/1.7 3 m2 03/01/2021 11:46 PM [facility] Blood BLOOD SPECIMEN / Unknown Venipuncture / Unknown 03/01/2021 11:16 PM CDT 03/01/2021 11:21 PM CDT Fredy Felipe MD LAB - CHEMISTRY [facility] [address] [id number] [phone] * (ABNORMAL) BLOOD GASES ART + COOX PANEL (03/01/2021 11:16 PM [facility]) pH Arterial 7.58(H) 7.35 - 7.45 pH 03/01/2021 11:22 PM [facility] pO2 Arterial 164(H) 80 - 100 mmHg 03/01/2021 11:22 PM [facility] pCO2 Arterial 24(L) 35 - 45 mmHg 11:22 PM [facility] HCO3 Arterial 23 20 - 30 mmol/l 03/01/2021 11:22 PM [facility] BE Arterial 1.7 -2.0 - 2.0 mmol/L 03/01/2021 11:22 PM [facility] Oxyhemoglobin Arterial 96.4 % 03/01/2021 11:22 PM [facility] Dexoyhemoglobin (HHB) % 0.4 % 03/01/2021 11:22 PM [facility] Methemoglobin 1.3 0.0 - 2.0 % 03/01/2021 11:22 PM [facility] Carboxyhemoglobin 1.9 0.0 - 2.0 % 2020 11:22 PM [facility] O2 Content Arterial 15.8 Interpret within clinical context mg/dL 03/01/2021 11:22 PM [facility] Hemoglobin by COOX 11.4(L) 12.0 - 17.6 g/dL 03/01/2021 11:22 PM [facility] O2 Saturation Arterial 100 90 - 100 % 03/01/2021 11:22 PM [facility] FI O2 Arterial 40.0 % 03/01/2021 11:22 PM [facility] Blood, arterial ARTERIAL BLOOD SPECIMEN / Unknown Arterial Puncture / Unknown 03/01/2021 11:16 PM CDT 03/01/2021 11:20 PM [facility] - 03/01/2021 11:22 PM [facility] Carboxyhemoglobin Normal Concentration: Non-smokers: 0-2%; Smokers: 0-9%; Toxic: >20% Fredy Felipe MD LAB - BLOOD GASES OR DERABLES Performing Organization Address [facility]/ZIP Co de Phone Number [address] [address], [facility] [phone] * (ABNORMAL) PT-INR [facility] (03/01/2021 11:16 PM CDT) PT 14.9(H) 12.1 - 14.8 Seconds 03/01/2021 11:34 PM CDT [facility] INR 1.2 See Comment 03/01/2021 11:34 PM CDT [facility] Comment:The suggested therap eutic range [...] OR DERABLES Performing Organization Address [facility]/ZIP Co de Phone Number [address] [address], [facility] [phone] * PHOSPHORUS BLOOD (03/01/2021 11:16 PM CDT) Phosphorus 3.7 2.8 - 5.1 mg/dL 03/01/2021 11:46 PM CDT [facility] Blood BLOOD SPECIMEN / Unknown Venipuncture / Unknown 03/01/2021 11:16 PM CDT 03/01/2021 11:21 PM CDT Fredy Felipe MD LAB - CHEMISTRY ORDE RABSILVA Performing Organization Address [facility]/ZIP Co de Phone Number [address] [phone], [place] [facility] [phone] * MAGNESIUM BLOOD (03/01/2021 11:16 PM CDT) Magnesium 2.1 1.6 - 2.6 mg/dL 03/01/2021 11:46 PM CDT [facility] Blood BLOOD SPECIMEN / Unknown Venipuncture / Unknown 03/01/2021 11:16 PM CDT 03/01/2021 11:21 PM CDT Fredy Felipe MD LAB - CHEMISTRY JOSE ENRIQUE VELA Performing Organization Address [facility]/ZIP Co de Phone Number [address] [address], [facility] [phone] * (ABNORMAL) CALCIUM IONIZED WHOLE BLOOD (03/01/2021 11:16 PM CDT) Calcium Ionized 1.18 mmol/L 03/01/2021 11:22 PM CDT [facility] pH 7.57(H) 7.35 - 7.45 pH 03/01/2021 11:22 PM CDT [facility] Ionized Calcium pH Adjusted 1.27 1.19 - 1.34 mmol/L 03/01/2021 11:22 PM CDT [facility] Blood BLOOD SPECIMEN / Unknown Venipuncture / Unknown 03/01/2021 11:16 PM CDT 03/01/2021 11:20 PM CDT Fredy Felipe MD LAB - CHEMISTRY JOSE ENRIQUE VELA Performing Organization Address [facility]/ZIP Co de Phone Number [address] [address], [facility] [phone] * XR CHEST 1VW PORTABLE (03/01/2021 4:20 [...] Dr. NAOMY Yao MD, KEN have personally reviewed and interpreted this examination/study. [...] 10? 3 /uL 03/01/2021 1:34 AM CDT [facility] Total Cell Count 100 03/01/2021 1:34 AM CDT [facility] Neutrophils Absolute Manual 12.01(H) 1.60 - 7.00 10? 3 /uL 03/01/2021 1:34 AM [facility] Comment:(BANDS+SEGS) x WBC = NEUT # (ANC) Lymphocyte Absolute Manual 1.09(L) 1.10 - 3.90 10? 3 /uL 03/01/2021 1:34 AM [facility] Monocytes Absolute Manual 1.87(H) 0.26 - 1.07 10? 3 /uL 03/01/2021 1:34 AM [facility] Eosinophils Absolute Manual 0.62(H) 0.00 - 0.47 10? 3 /uL 03/01/2021 1:34 AM [facility] Neutrophil % Manual 77(H) 35 - 70 % 03/01/2021 1:34 AM [facility] Lymphocyte % Manual 7(L) 20 - 43 % 03/01/2021 1:34 AM [facility] Monocytes % Manual 12 5 - 13 % 03/01/2021 1:34 AM [facility] Eosinophils % Manual 4 0 - 6 % 03/01/2021 1:34 AM [facility] Platelet Estimate Increased( A) Adequate 03/01/2021 1:34 AM [facility] RBC Morphology Normal 03/01/2021 1:34 AM [facility] Blood BLOOD SPECIMEN / Unknown Venipuncture / Unknown 03/01/2021 12:11 AM CDT 03/01/2021 12:18 AM CDT Fredy Felipe MD LAB - HEMATOLOGY ORD ERABLES [facility] [address] [place] [address], [facility] [phone] * (ABNORMAL) CBC W AUTO DIFFERENTIAL (03/01/2021 12:11 AM CDT) WBC 15.6(H) 3.5 - 10.5 10? 3 /uL 03/01/2021 12:42 AM [facility] RBC 3.88(L) 4.30 - 5.70 10? 6 /uL 03/01/2021 12:42 AM [facility] Hemoglobin 10.6(L) 12.0 - 17.6 g/dL 03/01/2021 12:42 AM [facility] Hematocrit 32.8(L) 35.2 - 51.7 % 03/01/2021 12:42 AM [facility] MCV 84.5 80.7 - 98.3 fL 03/01/2021 12:42 AM [facility] MCH 27.3 26.7 - 34.0 pg 03/01/2021 12:42 AM [facility] MCHC 32.3 30.8 - 35.9 g/dL 03/01/2021 12:42 AM [facility] Platelet Count 573(H) 150 - 400 10? 3 /uL 03/01/2021 12:42 AM [facility] RDW-SD 42.7 36.0 - 50.0 fL 03/01/2021 12:42 AM [facility] RDW-CV 13.7 11.2 - 14.8 % 03/01/2021 12:42 AM [facility] MPV 8.8(L) 9.4 - 12.9 fL 03/01/2021 12:42 AM [facility] nRBC Absolute 0.00 0 10? 3 /uL 03/01/2021 12:42 AM [facility] nRBC Auto 0.0 0 /100 WBC 03/01/2021 12:42 AM [facility] Immature Platelet Fraction 0.6(L) 1.1 - 6.2 % 03/01/2021 12:42 AM [facility] Blood BLOOD SPECIMEN / Unknown Venipuncture / Unknown 03/01/2021 12:11 AM CDT 03/01/2021 12:18 AM T Fredy Felipe MD LAB - HEMATOLOGY ORD ERABLES [facility] [address] [place] [address], [facility] [phone] * (ABNORMAL) BASIC METABOLIC PANEL (CALCIUM TOTAL) (03/01/2021 12:11 AM CDT) BUN 23 7 - 26 mg/dL 03/01/2021 12:42 AM [facility] Creatinine 1.21(H) 0.71 - 1.16 mg/dL 03/01/2021 12:42 AM [facility] Sodium 141 136 - 145 mmol/L 03/01/2021 12:42 AM [facility] Potassium 3.9 3.5 - 4.5 mmol/L 03/01/2021 12:42 AM [facility] Chloride 107 98 - 107 mmol/L 03/01/2021 12:42 AM [facility] CO2 21(L) 22 - 29 mmol/L 03/01/2021 12:42 AM [facility] Glucose 93 70 - 115 mg/dL 03/01/2021 12:42 AM [facility] Calcium 9.3 8.4 - 10.2 mg/dL 03/01/2021 12:42 AM [facility] Anion Gap 17 8 - 18 03/01/2021 12:42 AM [facility] BUN/Creatinine Ratio 19 7 - 23 03/01/2021 12:42 AM [facility] Osmolality Calculated 295 270 - 300 mOsm/kg 03/01/2021 12:42 AM [facility] eGFR by CKD-EPI 77(L) >=90 mL/min/1.7 3 m2 03/01/2021 12:42 AM [facility] Blood BLOOD SPECIMEN / Unknown Venipuncture / Unknown 03/01/2021 12:11 AM CDT 03/01/2021 12:18 AM CDT Fredy Felipe MD LAB - CHEMISTRY JOSE ENRIQUE VELA [facility] Organization Address City/State/ZIP Co de Phone Number [facility] [address] [place] [address], [facility] [phone] * (ABNORMAL) BLOOD GASES ART + COOX PANEL (03/01/2021 12:11 AM CDT) pH Arterial 7.46(H) 7.35 - 7.45 pH 03/01/2021 12:22 AM [facility] pO2 Arterial 144(H) 80 - 100 mmHg 03/01/2021 12:22 AM [facility] pCO2 Arterial 33(L) 35 - 45 mmHg 12:22 AM [facility] HCO3 Arterial 24 20 - 30 mmol/l 03/01/2021 12:22 AM [facility] BE Arterial 0.1 -2.0 - 2.0 mmol/L 03/01/2021 12:22 AM [facility] Oxyhemoglobin Arterial 97.3 % 03/01/2021 12:22 AM [facility] Dexoyhemoglobin (HHB) % 0.2 % 03/01/2021 12:22 AM [facility] Methemoglobin <0.8 0.0 - 2.0 % 03/01/2021 12:22 AM [facility] Carboxyhemoglobin 1.8 0.0 - 2.0 % 2020 12:22 AM [facility] O2 Content Arterial 15.9 Interpret within clinical context mg/dL 03/01/2021 12:22 AM [facility] Hemoglobin by COOX 11.4(L) 12.0 - 17.6 g/dL 03/01/2021 12:22 AM [facility] O2 Saturation Arterial 100 90 - 100 % 03/01/2021 12:22 AM [facility] FI O2 Arterial 40.0 % 03/01/2021 12:22 AM [facility] Blood, arterial ARTERIAL BLOOD SPECIMEN / Unknown Arterial Puncture / Unknown 03/01/2021 12:11 AM T 03/01/2021 12:16 AM [facility] - 03/01/2021 12:22 AM [facility] Carboxyhemoglobin Normal Concentration: Non-smokers: 0-2%; Smokers: 0-9%; Toxic: >20% Fredy Felipe MD LAB - BLOOD GASES OR DERABLES [facility] [address] [place] [address], [facility] [phone] * PT-INR [facility] (03/01/2021 12:11 AM CDT) PT 14.0 12.1 - 14.8 Seconds 03/01/2021 12:35 AM CDT [facility] INR 1.1 See Comment 03/01/2021 12:35 AM CDT [facility] Comment:The suggested therap eutic range for standard coumadin (warfarin) therapy is an INR of 2.0-3.0. For high-risk patients (Mechanical Mitral Valve Prosthesis, etc.), the suggested prophylactic therapeutic range is an INR of 2.5-3.5. Blood BLOOD SPECIMEN / Unknown Venipuncture / Unknown 03/01/2021 12:11 AM CDT 03/01/2021 12:16 AM CDT Fredy Felipe MD LAB - COAGULATION OR DERABLES Performing Organization Address City/[facility]/ZIP Co de Phone Number [address] [address], [facility] [phone] * PHOSPHORUS BLOOD (03/01/2021 12:11 AM CDT) Phosphorus 3.9 2.8 - 5.1 mg/dL 03/01/2021 12:42 AM CDT [facility] Blood BLOOD SPECIMEN / Unknown Venipuncture / Unknown 03/01/2021 12:11 AM CDT 03/01/2021 12:18 AM CDT Fredy Felipe MD LAB - CHEMISTRY ORDE RABLES [address] [address], [facility] [phone] * MAGNESIUM BLOOD (03/01/2021 12:11 AM CDT) Magnesium 2.1 1.6 - 2.6 mg/dL 03/01/2021 12:42 AM CDT [facility] Blood BLOOD SPECIMEN / Unknown Venipuncture / Unknown 03/01/2021 12:11 AM CDT 03/01/2021 12:18 AM CDT Fredy Felipe MD LAB - CHEMISTRY JOSE ENRIQUE VELA Performing Organization Address City/[facility]/ZIP Co de Phone Number [address] [address], [facility] [phone] * CALCIUM IONIZED WHOLE BLOOD (03/01/2021 12:11 AM CDT) Calcium Ionized 1.21 mmol/L 03/01/2021 12:22 AM CDT [facility] pH 7.45 7.35 - 7.45 pH 03/01/2021 12:22 AM CDT [facility] Ionized Calcium pH Adjusted 1.24 1.19 - 1.34 mmol/L 03/01/2021 12:22 AM CDT [facility] Blood BLOOD SPECIMEN / Unknown Venipuncture / Unknown 03/01/2021 12:11 AM CDT 03/01/2021 12:16 AM CDT Fredy Felipe MD LAB - CHEMISTRY JOSE ENRIQUE VELA Performing Organization Address [facility] Co de Phone Number [address] [address], [facility] [phone] * XR CHEST 1VW PORTABLE (02/28/2021 5:13 AM CDT) Anatomical Region Laterality Modality Chest Radiographic Sera ging 02/28/2021 1:26 PM CDT Impressions 02/28/2021 4:37 PM CDT IMPRESSION: No significant change, diffuse multifocal patchy opacities, may represent multifocal pneumonia or pulmonary contusions given the history of trauma. Report dictated by Simone Alexander MD, PhD (cath lab radiology technician). I, Dr. Jamaal CASTILLO M.D. have personally [...] Report dictated by Simone Alexander MD, PhD (cath lab radiology technician). Dr. Jaamal Yao M.D. have personally reviewed and interpretedthis [...] Report dictated by Simone Alexander MD, PhD (cath lab radiology technician). Dr. Jamaal Yao M.D. have personally reviewed [...] Report dictated by Simone Alexander MD, PhD (cath lab radiology technician). I, Dr. Jamaal CASTILLO M.D. have personally reviewed and interpretedthis examination/study. This report was electronically signed by Jamaal CASTILLO M.D. on 02/28/2021 4:24 PM . Dino Hudson PA-C DIAGNOSTIC IMAGIN G ORDERABLES * (ABNORMAL) DIFFERENTIAL MANUAL (02/28/2021 12:56 AM CDT) WBC (corrected for NRBC) 21.9 10? 3 /uL 02/28/2021 3:04 AM [facility] Total Cell Count 100 02/28/2021 3:04 AM [facility] Neutrophils Absolute Manual 17.96(H) 1.60 - 7.00 10? 3 /uL 02/28/2021 3:04 AM [facility] Comment:(BANDS+SEGS) x WBC = NEUT # (ANC) Lymphocyte Absolute Manual 1.10 1.10 - 3.90 10? 3 /uL 02/28/2021 3:[address] [facility] Monocytes Absolute Manual 2.41(H) 0.26 - 1.07 10? 3 /uL 02/28/2021 3:[address] [facility] Eosinophils Absolute Manual 0.44 0.00 - 0.47 10? 3 /uL 02/28/2021 3:04 AM [facility] Neutrophil % Manual 82(H) 35 - 70 % 02/28/2021 3:[address] [facility] Lymphocyte % Manual 5(L) 20 - 43 % 02/28/2021 3:04 AM CDT [facility] Monocytes % Manual 11 5 - 13 % 02/28/2021 3:04 AM CDT [facility] Eosinophils % Manual 2 0 - 6 % 02/28/2021 3:04 AM CDT [facility] Platelet Estimate Increased( A) Adequate 02/28/2021 3:04 AM CDT [facility] RBC Morphology Normal 02/28/2021 3:04 AM CDT [facility] Blood BLOOD SPECIMEN / Unknown Venipuncture / Unknown 02/28/2021 12:56 AM CDT 02/28/2021 1:22 AM CDT Fredy Felipe MD LAB - HEMATOLOGY ORD ERABLES Performing Organization Address City/[facility]/ZIP Co de Phone Number [address] [address], [place] [phone] * (ABNORMAL) TRIGLYCERIDES BLOOD (02/28/2021 12:56 AM CDT) Triglycerides 389(H) <150 mg/dL 02/28/2021 1:51 AM CDT [facility] Comment: ATP III Classification of Triglycerides: ?<150 mg/dL: ??Normal ? 150 - 199 mg/dL: ??Borderline High ? 200 - 400 mg/dL: ??High ?>500 mg/dL: ??Very High Blood BLOOD SPECIMEN / Unknown Venipuncture / Unknown 02/28/2021 12:56 AM CDT 02/28/2021 1:22 AM CDT Kelvin Stewart MD LAB - CHEMISTRY ORD ERABLES [address] [address], [place] [phone] * (ABNORMAL) CBC W AUTO DIFFERENTIAL (02/28/2021 12:56 AM CDT) WBC 21.9(H) 3.5 - 10.5 10? 3 /uL 02/28/2021 1:31 AM [facility] RBC 3.81(L) 4.30 - 5.70 10? 6 /uL 02/28/2021 1:31 AM [facility] Hemoglobin 10.4(L) 12.0 - 17.6 g/dL 02/28/2021 1:31 AM [facility] Hematocrit 32.7(L) 35.2 - 51.7 % 02/28/2021 1:31 AM [facility] MCV 85.8 80.7 - 98.3 fL 02/28/2021 1:31 AM [facility] MCH 27.3 26.7 - 34.0 pg 02/28/2021 1:31 AM [facility] MCHC 31.8 30.8 - 35.9 g/dL 02/28/2021 1:31 AM [facility] Platelet Count 493(H) 150 - 400 10? 3 /uL 02/28/2021 1:31 AM [facility] RDW-SD 43.9 36.0 - 50.0 fL 02/28/2021 1:31 AM [facility] RDW-CV 14.0 11.2 - 14.8 % 02/28/2021 1:31 AM [facility] MPV 9.1(L) 9.4 - 12.9 fL 02/28/2021 1:31 AM [facility] nRBC Absolute 0.02(H) 0 10? 3 /uL 02/28/2021 1:31 AM [facility] nRBC Auto 0.1(H) 0 /100 WBC 02/28/2021 1:31 AM [facility] Blood BLOOD SPECIMEN / Unknown Venipuncture / Unknown 02/28/2021 12:56 AM CDT 02/28/2021 1:22 AM T Fredy Felipe MD LAB - HEMATOLOGY ORD ERABLES [facility] [address] [place] [address] [phone] * (ABNORMAL) BASIC METABOLIC PANEL (CALCIUM TOTAL) (02/28/2021 12:56 AM CDT) BUN 24 7 - 26 mg/dL 02/28/2021 1:[address] [facility] Creatinine 1.30(H) 0.71 - 1.16 mg/dL 02/28/2021 1:51 AM [facility] Sodium 138 136 - 145 mmol/L 02/28/2021 1:51 AM [facility] Potassium 4.2 3.5 - 4.5 mmol/L 02/28/2021 1:51 AM [facility] Chloride 107 98 - 107 mmol/L 02/28/2021 1:51 AM [facility] CO2 19(L) 22 - 29 mmol/L 02/28/2021 1:51 AM [facility] Glucose 93 70 - 115 mg/dL 02/28/2021 1:51 AM [facility] Calcium 9.2 8.4 - 10.2 mg/dL 02/28/2021 1:51 AM [facility] Anion Gap 16 8 - 18 02/28/2021 1:51 AM [facility] BUN/Creatinine Ratio 18 7 - 23 02/28/2021 1:51 AM [facility] Osmolality Calculated 290 270 - 300 mOsm/kg 02/28/2021 1:51 AM [facility] eGFR by CKD-EPI 71(L) >=90 mL/min/1.7 3 m2 02/28/2021 1:51 AM [facility] Blood BLOOD SPECIMEN / Unknown Venipuncture / Unknown 02/28/2021 12:56 AM CDT 02/28/2021 1:22 AM CDT Fredy Felipe MD LAB - CHEMISTRY JOSE ENRIQUE Pena Organization Address City/State/ZIP Co de Phone Number [facility] [address] [place] [address], [facility] [phone] * (ABNORMAL) BLOOD GASES ART + COOX PANEL (02/28/2021 12:56 AM CDT) pH Arterial 7.50(H) 7.35 - 7.45 pH 02/28/2021 1:20 AM [facility] pO2 Arterial 142(H) 80 - 100 mmHg 02/28/2021 1:20 AM [facility] pCO2 Arterial 27(L) 35 - 45 mmHg 1:20 AM [facility] HCO3 Arterial 21 20 - 30 mmol/l 02/28/2021 1:20 AM [facility] BE Arterial -1.1 -2.0 - 2.0 mmol/L 02/28/2021 1:20 AM [facility] Oxyhemoglobin Arterial 96.0 % 02/28/2021 1:20 AM [facility] Dexoyhemoglobin (HHB) % 0.5 % 02/28/2021 1:20 AM [facility] Methemoglobin 1.3 0.0 - 2.0 % 02/28/2021 1:20 AM [facility] Carboxyhemoglobin 2.3(H) 0.0 - 2.0 % 2020 1:20 AM [facility] O2 Content Arterial 15.3 Interpret within clinical context mg/dL 02/28/2021 1:20 AM [facility] Hemoglobin by COOX 11.1(L) 12.0 - 17.6 g/dL 02/28/2021 1:20 AM [facility] O2 Saturation Arterial 100 90 - 100 % 02/28/2021 1:20 AM [facility] FI O2 Arterial 40.0 % 02/28/2021 1:20 AM [facility] Blood, arterial ARTERIAL BLOOD SPECIMEN / Unknown Arterial Puncture / Unknown 02/28/2021 12:56 AM T 02/28/2021 1:18 AM [facility] - 02/28/2021 1:20 AM [facility] Carboxyhemoglobin Normal Concentration: Non-smokers: 0-2%; Smokers: 0-9%; Toxic: >20% Fredy Felipe MD LAB - BLOOD GASES OR DERABLES [facility] [address] [place] [address], [facility] [phone] * PT-INR [facility] (02/28/2021 12:56 AM CDT) PT 14.3 12.1 - 14.8 Seconds 02/28/2021 1:42 AM CDT [facility] INR 1.1 See Comment 02/28/2021 1:42 AM CDT [facility] Comment:The suggested therap eutic range for standard coumadin (warfarin) therapy is an INR of 2.0-3.0. For high-risk patients (Mechanical Mitral Valve Prosthesis, etc.), the suggested prophylactic therapeutic range is an INR of 2.5-3.5. Blood BLOOD SPECIMEN / Unknown Venipuncture / Unknown 02/28/2021 12:56 AM CDT 02/28/2021 1:20 AM CDT Fredy Felipe MD LAB - COAGULATION OR DERABLES [address] [address], [facility] [phone] * PHOSPHORUS BLOOD (02/28/2021 12:56 AM CDT) [facility] [place] Phosphorus 4.0 2.8 - 5.1 mg/dL 02/28/2021 1:51 AM CDT [facility] Blood BLOOD SPECIMEN / Unknown Venipuncture / Unknown 02/28/2021 12:56 AM CDT 02/28/2021 1:22 AM CDT Ferdy Felipe MD LAB - CHEMISTRY ORDE RABLES [address] [address], [facility] [phone] * MAGNESIUM BLOOD (02/28/2021 12:56 AM CDT) Magnesium 2.1 1.6 - 2.6 mg/dL 02/28/2021 1:51 AM CDT [facility] Blood BLOOD SPECIMEN / Unknown Venipuncture / Unknown 02/28/2021 12:56 AM CDT 02/28/2021 1:22 AM CDT Fredy Felipe MD LAB - CHEMISTRY JOSE ENRIQUE VELA Performing Organization Address [facility] Co de Phone Number [address] [address], [facility] [phone] * (ABNORMAL) CALCIUM IONIZED WHOLE BLOOD (02/28/2021 12:56 AM CDT) Calcium Ionized 1.22 mmol/L 02/28/2021 1:21 AM CDT [facility] pH 7.49(H) 7.35 - 7.45 pH 02/28/2021 1:21 AM CDT [facility] Ionized Calcium pH Adjusted 1.27 1.19 - 1.34 mmol/L 02/28/2021 1:21 AM CDT [facility] Blood BLOOD SPECIMEN / Unknown Venipuncture / Unknown 02/28/2021 12:56 AM CDT 02/28/2021 1:18 AM CDT Fredy Felipe MD LAB - CHEMISTRY JOSE ENRIQUE VELA Performing Organization Address [facility] Co de Phone Number [address] [address], [facility] [phone] * XR CHEST 1VW PORTABLE (02/27/2021 5:30 [...] is stable. Dictated by Rico Sawant DO (cath lab radiology technician). Dr. Jamaal Yao M.D. have personally reviewed [...] is stable. Dictated by Rico Sawant DO (cath lab radiology technician). Dr. Jamaal Yao M.D. have personally reviewed [...] is identified. Dictated by Rico Sawant DO (cath lab radiology technician). Dr. NAOMY Yao MD, FRKEN have personally [...] is identified. Dictated by Rico Sawant DO (cath lab radiology technician). Dr. NAOMY Yao MD, FRKEN have personally reviewedand interpreted this examination/study. This report was electronically signed by NAOMY LAZO MD, KATHLEEN on 02/28/2021 3:46 PM . Fredy Felipe MD DIAGNOSTIC IMAGING O RDERABLES * (ABNORMAL) PT-INR [facility] (02/27/2021 1:31 AM CDT) PT 14.9(H) 12.1 - 14.8 Seconds 02/27/2021 1:48 AM [facility] INR 1.2 See Comment 02/27/2021 1:48 AM [facility] Comment:The suggested therap eutic range for standard coumadin (warfarin) therapy is an INR of 2.0-3.0. For high-risk patients (Mechanical Mitral Valve Prosthesis, etc.), the suggested prophylactic therapeutic range is an INR of 2.5-3.5. Blood BLOOD SPECIMEN / Unknown Venipuncture / Unknown 02/27/2021 1:31 AM CDT 02/27/2021 1:35 AM CDT Fredy Felipe MD LAB - COAGULATION OR DERABLES [facility] [address] [place] [address], [facility] [phone] * (ABNORMAL) DIFFERENTIAL MANUAL (02/27/2021 12:52 AM CDT) [facility] [place] WBC (corrected for NRBC) 28.9 10? 3 /uL 02/27/2021 2:19 AM [facility] Total Cell Count 100 02/27/2021 2:19 AM [facility] Neutrophils Absolute Manual 23.12(H) 1.60 - 7.00 10? 3 /uL 02/27/2021 2:19 AM [facility] Comment:(BANDS+SEGS) x WBC = NEUT # (ANC) Lymphocyte Absolute Manual 1.16 1.10 - 3.90 10? 3 /uL 02/27/2021 2:19 AM [facility] Monocytes Absolute Manual 4.05(H) 0.26 - 1.07 10? 3 /uL 02/27/2021 2:19 AM [facility] Eosinophils Absolute Manual 0.29 0.00 - 0.47 10? 3 /uL 02/27/2021 2:19 AM [facility] Neutrophil % Manual 80(H) 35 - 70 % 02/27/2021 2:19 AM [facility] Lymphocyte % Manual 4(L) 20 - 43 % 02/27/2021 2:19 AM [facility] Monocytes % Manual 14(H) 5 - 13 % 02/27/2021 2:19 AM [facility] Eosinophils % Manual 1 0 - 6 % 02/27/2021 2:19 AM [facility] Atypical Lymphocyte % Manual 1(H) 0 % 02/27/2021 2:19 AM [facility] Platelet Estimate Adequate Adequate 02/27/2021 2:19 AM [facility] RBC Morphology Normal 02/27/2021 2:19 AM [facility] Blood BLOOD SPECIMEN / Unknown Venipuncture / Unknown 02/27/2021 12:52 AM CDT 02/27/2021 1:07 AM CDT Fredy Felipe MD LAB - HEMATOLOGY ORD ERABLES [facility] [address] [place] [id number] [phone] * (ABNORMAL) CBC W AUTO DIFFERENTIAL (02/27/2021 12:52 AM CDT) WBC 28.9(H) 3.5 - 10.5 10? 3 /uL 02/27/2021 1:23 AM [facility] RBC 3.79(L) 4.30 - 5.70 10? 6 /uL 02/27/2021 1:23 AM [facility] Hemoglobin 10.6(L) 12.0 - 17.6 g/dL 02/27/2021 1:23 AM [facility] Hematocrit 33.1(L) 35.2 - 51.7 % 02/27/2021 1:23 AM [facility] MCV 87.3 80.7 - 98.3 fL 02/27/2021 1:23 AM [facility] MCH 28.0 26.7 - 34.0 pg 02/27/2021 1:23 AM [facility] MCHC 32.0 30.8 - 35.9 g/dL 02/27/2021 1:23 AM [facility] Platelet Count 409(H) 150 - 400 10? 3 /uL 02/27/2021 1:23 AM [facility] RDW-SD 45.1 36.0 - 50.0 fL 02/27/2021 1:23 AM [facility] RDW-CV 14.1 11.2 - 14.8 % 02/27/2021 1:23 AM [facility] MPV 9.6 9.4 - 12.9 fL 02/27/2021 1:23 AM [facility] nRBC Absolute 0.00 0 10? 3 /uL 02/27/2021 1:23 AM [facility] nRBC Auto 0.0 0 /100 WBC 02/27/2021 1:23 AM [facility] Immature Platelet Fraction 1.9 1.1 - 6.2 % 02/27/2021 1:23 AM [facility] Blood BLOOD SPECIMEN / Unknown Venipuncture / Unknown 02/27/2021 12:52 AM CDT 02/27/2021 1:07 AM T Fredy Felipe MD LAB - HEMATOLOGY ORD ERABLES [facility] [address] [place] [id number], [facility] [phone] * (ABNORMAL) BASIC METABOLIC PANEL (CALCIUM TOTAL) (02/27/2021 12:52 AM CDT) BUN 30(H) 7 - 26 mg/dL 02/27/2021 1:31 AM [facility] Creatinine 1.39(H) 0.71 - 1.16 mg/dL 02/27/2021 1:31 AM [facility] Sodium 136 136 - 145 mmol/L 02/27/2021 1:31 AM [facility] Potassium 5.1(H) 3.5 - 4.5 mmol/L 02/27/2021 1:31 AM [facility] Chloride 106 98 - 107 mmol/L 02/27/2021 1:31 AM [facility] CO2 20(L) 22 - 29 mmol/L 02/27/2021 1:31 AM [facility] Glucose 99 70 - 115 mg/dL 02/27/2021 1:31 AM [facility] Calcium 9.4 8.4 - 10.2 mg/dL 02/27/2021 1:31 AM [facility] Anion Gap 15 8 - 18 02/27/2021 1:31 AM [facility] BUN/Creatinine Ratio 22 7 - 23 02/27/2021 1:31 AM [facility] Osmolality Calculated 288 270 - 300 mOsm/kg 02/27/2021 1:31 AM [facility] eGFR by CKD-EPI 65(L) >=90 mL/min/1.7 3 m2 02/27/2021 1:31 AM [facility] Blood BLOOD SPECIMEN / Unknown Venipuncture / Unknown 02/27/2021 12:52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 . Nena Obrien DO DIAGNOSTIC IMAGING O RDERABLES * TYPE + SCREEN PANEL (02/24/2021 10:10 AM CDT) Antibody Screen NEG 11:29 AM CDT [facility] ABO Rh O POS 02/24/2021 11:29 AM CDT [facility] Blood Bank BLOOD SPECIMEN / Unknown Venipuncture / Unknown 02/24/2021 10:10 AM CDT 02/24/2021 10:35 AM CDT Mario Garcia MD LAB - BLOOD BANK ORD ERABLES [facility] [address] [place] [address], [facility] [phone] * XR CHEST 1VW PORTABLE (02/24/2021 5:51 [...] Report dictated by Simone Alexander MD, PhD (cath lab radiology technician). I, Dr. TAINA PAVON have personally reviewed [...] Report dictated by Simone Alexander MD, PhD (cath lab radiology technician). I, Dr. TAINA PAVON have personally reviewed and interpreted this examination/study. This report was electronically signed by TAINA PAVON on 02/25/2021 1:44 PM . Fredy Felipe MD DIAGNOSTIC IMAGING O RDERABLES * (ABNORMAL) CBC W AUTO DIFFERENTIAL (02/24/2021 12:28 AM T) WBC 13.9(H) 3.5 - 10.5 10? 3 /uL 02/24/2021 12:42 AM [facility] RBC 4.24(L) 4.30 - 5.70 10? 6 /uL 02/24/2021 12:42 AM [facility] Hemoglobin 11.8(L) 12.0 - 17.6 g/dL 02/24/2021 12:42 AM [facility] Hematocrit 36.4 35.2 - 51.7 % 02/24/2021 12:42 AM [facility] MCV 85.8 80.7 - 98.3 fL 02/24/2021 12:42 AM [facility] MCH 27.8 26.7 - 34.0 pg 02/24/2021 12:42 AM [facility] MCHC 32.4 30.8 - 35.9 g/dL 02/24/2021 12:42 AM [facility] Platelet Count 402(H) 150 - 400 10? 3 /uL 02/24/2021 12:42 AM [facility] RDW-SD 42.7 36.0 - 50.0 fL 02/24/2021 12:42 AM [facility] RDW-CV 13.8 11.2 - 14.8 % 02/24/2021 12:42 AM [facility] MPV 9.0(L) 9.4 - 12.9 fL 02/24/2021 12:42 AM [facility] nRBC Absolute 0.00 0 10? 3 /uL 02/24/2021 12:42 AM [facility] nRBC Auto 0.0 0 /100 WBC 02/24/2021 12:42 AM [facility] Neutrophils % 76.6(H) 35.0 - 70.0 % 02/24/2021 12:42 AM [facility] Lymphocytes % 10.0(L) 20.0 - 43.0 % 02/24/2021 12:42 AM [facility] Monocytes % 7.6 5.0 - 13.0 % 02/24/2021 12:42 AM [facility] Eosinophils % 3.8 0.0 - 6.0 % 02/24/2021 12:42 AM [facility] Basophil % 0.4 0.0 - 2.0 % 02/24/2021 12:42 AM [facility] Neutrophils Absolute 10.7(H) 1.6 - 7.0 10? 3 /uL 02/24/2021 12:42 AM [facility] Lymphocyte Absolute 1.4 1.1 - 3.9 10? 3 /uL 02/24/2021 12:42 AM [facility] Monocytes Absolute 1.06 0.26 - 1.07 10? 3 /uL 02/24/2021 12:42 AM [facility] Eosinophils Absolute 0.53(H) 0.00 - 0.47 10? 3 /uL 02/24/2021 12:42 AM [facility] Basophils Absolute 0.05 0.00 - 0.08 10? 3 /uL 02/24/2021 12:42 AM [facility] Immature Granulocytes % 1.6(H) 0.0 - 1.0 % 02/24/2021 12:42 AM [facility] Immature Granulocytes Absolute 0.22 02/24/2021 12:42 AM [facility] Blood BLOOD SPECIMEN / Unknown Venipuncture / Unknown 02/24/2021 12:28 AM CDT 02/24/2021 12:37 AM T Fredy Felipe MD LAB - HEMATOLOGY ORD ERABLES [facility] [address] [place] [address], [place] [phone] * (ABNORMAL) BASIC METABOLIC PANEL (CALCIUM TOTAL) (02/24/2021 12:28 AM CDT) BUN 6(L) 7 - 26 mg/dL 02/24/2021 1:02 AM [facility] Creatinine 0.65(L) 0.71 - 1.16 mg/dL 02/24/2021 1:02 AM [facility] Sodium 138 136 - 145 mmol/L 02/24/2021 1:02 AM [facility] Potassium 4.2 3.5 - 4.5 mmol/L 02/24/2021 1:02 AM [facility] Chloride 103 98 - 107 mmol/L 02/24/2021 1:02 AM [facility] CO2 25 22 - 29 mmol/L 02/24/2021 1:02 AM [facility] Glucose 131(H) 70 - 115 mg/dL 02/24/2021 1:02 AM [facility] Calcium 8.4 8.4 - 10.2 mg/dL 02/24/2021 1:02 AM [facility] Anion Gap 14 8 - 18 02/24/2021 1:02 AM [facility] BUN/Creatinine Ratio 9 7 - 23 02/24/2021 1:02 AM [facility] Osmolality Calculated 285 270 - 300 mOsm/kg 02/24/2021 1:02 AM [facility] eGFR by CKD-EPI >90 >=90 mL/min/1.7 3 m2 02/24/2021 1:02 AM [facility] Blood BLOOD SPECIMEN / Unknown Venipuncture / Unknown 02/24/2021 12:28 AM CDT 02/24/2021 12:37 AM [facility] Fredy Felipe MD LAB - CHEMISTRY JOSE ENRIQUE VELA [facility] [address] [place] [address] [phone] * (ABNORMAL) BLOOD GASES ART + COOX PANEL (02/24/2021 12:28 AM [facility]) pH Arterial 7.44 7.35 - 7.45 pH 02/24/2021 12:37 AM [facility] pO2 Arterial 110(H) 80 - 100 mmHg 02/24/2021 12:37 AM [facility] pCO2 Arterial 41 35 - 45 mmHg 12:37 AM [facility] HCO3 Arterial 28 20 - 30 mmol/l 02/24/2021 12:37 AM [facility] BE Arterial 3.3(H) -2.0 - 2.0 mmol/L 02/24/2021 12:37 AM [facility] Oxyhemoglobin Arterial 96.5 % 02/24/2021 12:37 AM [facility] Dexoyhemoglobin (HHB) % 1.0 % 02/24/2021 12:37 AM [facility] Methemoglobin <0.8 0.0 - 2.0 % 02/24/2021 12:37 AM [facility] Carboxyhemoglobin 1.8 0.0 - 2.0 % 2020 12:37 AM [facility] O2 Content Arterial 16.6 Interpret within clinical context mg/dL 02/24/2021 12:37 AM [facility] Hemoglobin by COOX 12.1 12.0 - 17.6 g/dL 02/24/2021 12:37 AM [facility] O2 Saturation Arterial 99 90 - 100 % 02/24/2021 12:37 AM [facility] FI O2 Arterial 45.0 % 02/24/2021 12:37 AM [facility] Blood, arterial ARTERIAL BLOOD SPECIMEN / Unknown Arterial Puncture / Unknown 02/24/2021 12:28 AM T 02/24/2021 12:34 AM [facility] - 02/24/2021 12:37 AM [facility] Carboxyhemoglobin Normal Concentration: Non-smokers: 0-2%; Smokers: 0-9%; Toxic: >20% Fredy Felipe MD LAB - BLOOD GASES OR DERABLES [address] [address], [place] [phone] * PT-INR [facility] (02/24/2021 12:28 AM CDT) PT 14.2 12.1 - 14.8 Seconds 02/24/2021 12:45 AM CDT [facility] INR 1.1 See Comment 02/24/2021 12:45 AM CDT [facility] Comment:The suggested therap eutic range for standard coumadin (warfarin) therapy is an INR of 2.0-3.0. For high-risk patients (Mechanical Mitral Valve Prosthesis, etc.), the suggested prophylactic therapeutic range is an INR of 2.5-3.5. Blood BLOOD SPECIMEN / Unknown Venipuncture / Unknown 02/24/2021 12:28 AM CDT 02/24/2021 12:37 AM CDT Fredy Felipe MD LAB - COAGULATION OR DERABLES Performing Organization Address City/[facility]/ZIP Co de Phone Number [address] [address], [place] [phone] * PHOSPHORUS BLOOD (02/24/2021 12:28 AM CDT) Phosphorus 3.9 2.8 - 5.1 mg/dL 02/24/2021 1:02 AM CDT [facility] Blood BLOOD SPECIMEN / Unknown Venipuncture / Unknown 02/24/2021 12:28 AM CDT 02/24/2021 12:37 AM CDT Fredy Felipe MD LAB - CHEMISTRY ORDNolan VELA [address] [address], [place] [phone] * MAGNESIUM BLOOD (02/24/2021 12:28 AM CDT) Magnesium 1.8 1.6 - 2.6 mg/dL 02/24/2021 1:02 AM CDT [facility] Blood BLOOD SPECIMEN / Unknown Venipuncture / Unknown 02/24/2021 12:28 AM CDT 02/24/2021 12:37 AM CDT Fredy Felipe MD LAB - CHEMISTRY JOSE ENRIQUE VELA Performing Organization Address [facility] Co de Phone Number [address] [address], [facility] [phone] * (ABNORMAL) CALCIUM IONIZED WHOLE BLOOD (02/24/2021 12:28 AM CDT) Pathologist [facility] Calcium Ionized 1.16 mmol/L 02/24/2021 12:40 AM CDT [facility] pH 7.45 7.35 - 7.45 pH 02/24/2021 12:40 AM CDT [facility] Ionized Calcium pH Adjusted 1.18(L) 1.19 - 1.34 mmol/L 02/24/2021 12:40 AM CDT [facility] Blood BLOOD SPECIMEN / Unknown Venipuncture / Unknown 02/24/2021 12:28 AM CDT 02/24/2021 12:34 AM CDT Fredy Felipe MD LAB - CHEMISTRY JOSE ENRIQUE VELA Performing Organization Address [facility] de Phone Number [address] [address], [facility] [phone] * XR CHEST 1VW PORTABLE (02/23/2021 5:05 AM CDT) Anatomical Region Laterality Modality Chest Radiographic Sera ging 02/23/2021 5:19 AM CDT Impressions 02/23/2021 10:53 AM CDT FINDINGS/IMPRESSION: An endotracheal tube terminates in mid thoracic trachea. A left subclavian approach central venous catheter terminates in the left brachiocephalic vein. A gastric tube courses to the stomach out of the [id number]. A right thoracostomy tube is unchanged in position. Small bilateral pleural effusions are suggested. Bibasilar airspace opacities may represent atelectasis and/or airspace disease. There is no pneumothorax. The cardiomediastinal silhouette is partially obscured. Dictated by Alverto Ames MD (cath lab radiology technician). I, Dr. NENA CLEMENTE have personally reviewed [...] courses to the stomach out of the [id number]. A right thoracostomy tube is unchanged in position. Small bilateral pleural effusions are suggested. Bibasilar airspace opacities may represent atelectasis and/or airspace disease. There is no pneumothorax. The cardiomediastinal silhouette is partially obscured. Dictated by Alverto Ames MD (cath lab radiology technician). I, Dr. NENA CLEMENTE have personally reviewed and interpreted this examination/study. This report was electronically signed by NENA CLEMENTE on 02/23/2021 10:53 AM . Fredy Felipe MD DIAGNOSTIC IMAGING O RDERABLES * PREPARE (CROSSMATCH) RBC UNIT(S), 2 Units (02/23/2021 1:17 AM CDT) Unit Description AS1 LR PRBC [facility] Unit ABO O [facility] Unit Rh POS [facility] Product Number R02 [facility] B LOOD [facility] LAB Unit Donor # [id number] [facility] Unit Status released [facility] BLOO D BANK LAB Product Code [id number] [facility] B[facility] OD [facility] Blood Type Barcode 5100 [facility] Expiration Date S BLOOD BANK LAB Unit Description AS1 LR PRBC [facility] Unit ABO O [facility] Unit Rh POS [facility] Product Number R02 [facility] B LOOD [facility]ANK LAB Unit Donor # [id number] [facility] Unit Status released [facility] BLOO D [facility] Product Code [id number] [facility] BLO OD [facility]ANK LAB Blood Type Barcode 5100 [facility] Expiration Date S BLOOD BANK LAB Blood Bank BLOOD SPECIMEN / Unknown 02/19/2021 7:34 AM CDT Fredy Felipe MD LAB - BLOOD BANK ORD ERABLES [facility] [address] [place] [address], [facility] [phone] * (ABNORMAL) CBC W AUTO DIFFERENTIAL (02/23/2021 12:21 AM CDT) WBC 13.5(H) 3.5 - 10.5 10? 3 /uL 02/23/2021 1:02 AM [facility] RBC 4.32 4.30 - 5.70 10? 6 /uL 02/23/2021 1:02 AM [facility] Hemoglobin 12.0 12.0 - 17.6 g/dL 02/23/2021 1:02 AM [facility] Hematocrit 38.1 35.2 - 51.7 % 02/23/2021 1:02 AM [facility] MCV 88.2 80.7 - 98.3 fL 02/23/2021 1:02 AM [facility] MCH 27.8 26.7 - 34.0 pg 02/23/2021 1:02 AM [facility] MCHC 31.5 30.8 - 35.9 g/dL 02/23/2021 1:02 AM [facility] Platelet Count 403(H) 150 - 400 10? 3 /uL 02/23/2021 1:02 AM [facility] RDW-SD 45.1 36.0 - 50.0 fL 02/23/2021 1:02 AM [facility] RDW-CV 14.0 11.2 - 14.8 % 02/23/2021 1:02 AM [facility] MPV 9.2(L) 9.4 - 12.9 fL 02/23/2021 1:02 AM [facility] nRBC Absolute 0.00 0 10? 3 /uL 02/23/2021 1:02 AM [facility] nRBC Auto 0.0 0 /100 WBC 02/23/2021 1:02 AM [facility] Neutrophils % 74.4(H) 35.0 - 70.0 % 02/23/2021 1:02 AM [facility] Lymphocytes % 10.5(L) 20.0 - 43.0 % 02/23/2021 1:02 AM [facility] Monocytes % 9.6 5.0 - 13.0 % 02/23/2021 1:02 AM [facility] Eosinophils % 4.0 0.0 - 6.0 % 02/23/2021 1:02 AM [facility] Basophil % 0.2 0.0 - 2.0 % 02/23/2021 1:02 AM [facility] Neutrophils Absolute 10.0(H) 1.6 - 7.0 10? 3 /uL 02/23/2021 1:02 AM [facility] Lymphocyte Absolute 1.4 1.1 - 3.9 10? 3 /uL 02/23/2021 1:02 AM [facility] Monocytes Absolute 1.30(H) 0.26 - 1.07 10? 3 /uL 02/23/2021 1:02 AM [facility] Eosinophils Absolute 0.54(H) 0.00 - 0.47 10? 3 /uL 02/23/2021 1:02 AM [facility] Basophils Absolute 0.03 0.00 - 0.08 10? 3 /uL 02/23/2021 1:02 AM [facility] Immature Granulocytes % 1.3(H) 0.0 - 1.0 % 02/23/2021 1:02 AM [facility] Immature Granulocytes Absolute 0.18 02/23/2021 1:02 AM [facility] Blood BLOOD SPECIMEN / Unknown Venipuncture / Unknown 02/23/2021 12:21 AM CDT 02/23/2021 12:57 AM CDT Fredy Felipe MD LAB - HEMATOLOGY ORD ERABLES [facility] [address] [place] [address], [facility] [phone] * (ABNORMAL) BASIC METABOLIC PANEL (CALCIUM TOTAL) (02/23/2021 12:21 AM [facility]) BUN 10 7 - 26 mg/dL 02/23/2021 1:22 AM [facility] Creatinine 0.84 0.71 - 1.16 mg/dL 02/23/2021 1:22 AM [facility] Sodium 139 136 - 145 mmol/L 02/23/2021 1:22 AM [facility] Potassium 4.2 3.5 - 4.5 mmol/L 02/23/2021 1:22 AM [facility] Chloride 103 98 - 107 mmol/L 02/23/2021 1:22 AM [facility] CO2 30(H) 22 - 29 mmol/L 02/23/2021 1:22 AM [facility] Glucose 145(H) 70 - 115 mg/dL 02/23/2021 1:22 AM [facility] Calcium 8.4 8.4 - 10.2 mg/dL 02/23/2021 1:22 AM [facility] Anion Gap 10 8 - 18 02/23/2021 1:22 AM [facility] BUN/Creatinine Ratio 12 7 - 23 02/23/2021 1:22 AM [facility] Osmolality Calculated 290 270 - 300 mOsm/kg 02/23/2021 1:22 AM [facility] eGFR by CKD-EPI >90 >=90 mL/min/1.7 3 m2 02/23/2021 1:22 AM [facility] Blood BLOOD SPECIMEN / Unknown Venipuncture / Unknown 02/23/2021 12:21 AM CDT 02/23/2021 12:57 AM T Fredy Felipe MD LAB - CHEMISTRY JOSE ENRIQUE VELA [facility] Organization Address City/State/ZIP Co de Phone Number [facility] [address] [place] [address], [facility] [phone] * (ABNORMAL) BLOOD GASES ART + COOX PANEL (02/23/2021 12:21 AM CDT) pH Arterial 7.43 7.35 - 7.45 pH 02/23/2021 1:02 AM [facility] pO2 Arterial 110(H) 80 - 100 mmHg 02/23/2021 1:02 AM [facility] pCO2 Arterial 44 35 - 45 mmHg 1:02 AM [facility] HCO3 Arterial 29 20 - 30 mmol/l 02/23/2021 1:02 AM [facility] BE Arterial 4.3(H) -2.0 - 2.0 mmol/L 02/23/2021 1:02 AM [facility] Oxyhemoglobin Arterial 97.1 % 02/23/2021 1:02 AM [facility] Dexoyhemoglobin (HHB) % 0.6 % 02/23/2021 1:02 AM [facility] Methemoglobin 0.8 0.0 - 2.0 % 02/23/2021 1:02 AM [facility] Carboxyhemoglobin 1.5 0.0 - 2.0 % 2020 1:02 AM [facility] O2 Content Arterial 17.5 Interpret within clinical context mg/dL 02/23/2021 1:02 AM [facility] Hemoglobin by COOX 12.7 12.0 - 17.6 g/dL 02/23/2021 1:02 AM [facility] O2 Saturation Arterial 99 90 - 100 % 02/23/2021 1:02 AM [facility] FI O2 Arterial 55.0 % 02/23/2021 1:02 AM CDT [facility] Blood, arterial ARTERIAL BLOOD SPECIMEN / Unknown Arterial Puncture / Unknown 02/23/2021 12:21 AM CDT 02/23/2021 12:55 AM CDT Narrative [facility] - 02/23/2021 1:02 AM CDT Carboxyhemoglobin Normal Concentration: Non-smokers: 0-2%; Smokers: 0-9%; Toxic: >20% Fredy Felipe MD LAB - BLOOD GASES OR DERABLES Performing Organization Address [facility] Co de Phone Number [address] [address], [facility] [phone] * PT-INR [facility] (02/23/2021 12:21 AM CDT) PT 14.4 12.1 - 14.8 Seconds 02/23/2021 1:07 AM T [facility] INR 1.2 See Comment 02/23/2021 1:07 AM T [facility] Comment:The suggested therap eutic range for standard coumadin (warfarin) therapy is an INR of 2.0-3.0. For high-risk patients (Mechanical Mitral Valve Prosthesis, etc.), the suggested prophylactic therapeutic range is an INR of 2.5-3.5. Blood BLOOD SPECIMEN / Unknown Venipuncture / Unknown 02/23/2021 12:21 AM CDT 02/23/2021 12:59 AM CDT Fredy Felipe MD LAB - COAGULATION OR DERABLES Performing Organization Address City/[facility]/ZIP Co de Phone Number [facility] [address] [place] [phone], [facility] [phone] * PHOSPHORUS BLOOD (02/23/2021 12:21 AM CDT) Phosphorus 3.9 2.8 - 5.1 mg/dL 02/23/2021 1:22 AM T [facility] Blood BLOOD SPECIMEN / Unknown Venipuncture / Unknown 02/23/2021 12:21 AM CDT 02/23/2021 12:57 AM CDT Fredy Felipe MD LAB - CHEMISTRY [facility]SE ENRIQUE VELA [address] [address], [place] [phone] * MAGNESIUM BLOOD (02/23/2021 12:21 AM CDT) Magnesium 2.1 1.6 - 2.6 mg/dL 02/23/2021 1:22 AM CDT [facility] Blood BLOOD SPECIMEN / Unknown Venipuncture / Unknown 02/23/2021 12:21 AM CDT 02/23/2021 12:57 AM CDT Fredy Felipe MD LAB - CHEMISTRY JOSE ENRIQUE VELA Performing Organization Address City/[facility]/ZIP Co de Phone Number [address] [address], [place] [phone] * (ABNORMAL) CALCIUM IONIZED WHOLE BLOOD (02/23/2021 12:21 AM CDT) Calcium Ionized 1.12 mmol/L 02/23/2021 1:05 AM CDT [facility] pH 7.44 7.35 - 7.45 pH 02/23/2021 1:05 AM CDT [facility] Ionized Calcium pH Adjusted 1.14(L) 1.19 - 1.34 mmol/L 02/23/2021 1:05 AM CDT [facility] Blood BLOOD SPECIMEN / Unknown Venipuncture / Unknown 02/23/2021 12:21 AM CDT 02/23/2021 12:55 AM CDT Fredy Felipe MD LAB - CHEMISTRY [facility]SE ENRIQUE VELA [address] [address], [place] [phone] * CREATININE URINE RANDOM (02/22/2021 5:45 AM CDT) Creatinine Urine 212 Not Established mg/dL 02/22/2021 6:25 AM CDT [facility] Urine URINE SPECIMEN OBTAINED BY CLEAN CATCH PROCEDURE / Unknown Collection / Unknown 02/22/2021 5:45 AM CDT 02/22/2021 6:13 AM CDT Dino Hudson PA-C LAB - URINE CHEMI STRY ORDERABLES Performing Organization Address City/[facility]/ZIP Co de Phone Number [address] [address], [place] [phone] * UREA NITROGEN URINE RANDOM (02/22/2021 5:45 AM CDT) Urea Nitrogen Random Urine 1,198 Not Established mg/dL 02/22/2021 6:25 AM CDT [facility] Urine URINE SPECIMEN OBTAINED BY CLEAN CATCH PROCEDURE / Unknown Collection / Unknown 02/22/2021 5:45 AM CDT 02/22/2021 6:13 AM CDT Dino MORIN-C LAB - URINE CHEMI STRY ORDERABLES Performing Organization Address [facility]/ZIP Co de Phone Number [address] [address], [place] [phone] * SODIUM URINE RANDOM (02/22/2021 5:45 AM CDT) Sodium Urine 56 Not Established mmol/L 02/22/2021 6:25 AM CDT [facility] Urine URINE SPECIMEN OBTAINED BY CLEAN CATCH PROCEDURE / Unknown Collection / Unknown 02/22/2021 5:45 AM CDT 02/22/2021 6:13 AM CDT Dino MORIN-C LAB - URINE CHEMI STRY ORDERABLES Performing Organization Address City/[facility]/ZIP Co de Phone Number [address] [phone], [place] [phone] * (ABNORMAL) URINALYSIS W/MICROSCOPIC NO CULTURE (02/22/2021 5:44 AM [facility]) Color UA Janis(A) Straw, Yellow 02/22/2021 6:08 AM [facility] Clarity UA Slt Cloudy(A) Clear 02/22/2021 6:08 AM [facility] Specific [place] UA 1.024 1.005 - 1.030 02/22/2021 6:08 AM [facility] pH UA 5.0 5.0 - 8.0 pH 02/22/2021 6:08 AM [facility] Protein UA 1+(A) Negative 02/22/2021 6:08 AM [facility] Glucose UA Negative Negative 02/22/2021 6:08 AM [facility] Ketone UA Negative Negative 02/22/2021 6:08 AM [facility] Bilirubin UA Negative Negative 02/22/2021 6:08 AM [facility] Blood UA 2+(A) Negative 02/22/2021 6:08 AM [facility] Nitrite UA Negative Negative 02/22/2021 6:08 AM [facility] Leukocyte Esterase Negative Negative 02/22/2021 6:08 AM [facility] Urobilinogen UA Negative Negative mg/dL 02/22/2021 6:08 AM [facility] RBC UA 51-100(A) None Seen, 0-2, 3-5 /HPF 02/22/2021 6:08 AM [facility] WBC UA 6-10(A) None Seen, 0-5 /HPF 02/22/2021 6:08 AM [facility] Bacteria UA 1+(A) None /HPF 02/22/2021 6:08 AM [facility] Squamous Epithelial Cells UA None Seen None Seen, 0-2, 3-5 /HPF 02/22/2021 6:08 AM [facility] Mucus UA 1+ /LPF 02/22/2021 6:08 AM [facility] Urine URINE SPECIMEN OBTAINED VIA [employer] / Unknown Collection / Unknown 02/22/2021 5:44 AM CDT 02/22/2021 5:49 AM CDT Narrative [facility] - 02/22/2021 6:08 AM CDT Dino Hudson PA-C LAB - URINALYSIS ORDERABLES [facility] [address] [place] [address], [facility] [phone] * XR CHEST 1VW PORTABLE (02/22/2021 4:54 [...] ART + COOX PANEL (02/22/2021 3:17 AM [facility]) pH Arterial 7.41 7.35 - 7.45 pH 02/22/2021 3:23 AM [facility] pO2 Arterial 94 80 - 100 mmHg 02/22/2021 3:23 AM [facility] pCO2 Arterial 46(H) 35 - 45 mmHg 3:23 AM [facility] HCO3 Arterial 29 20 - 30 mmol/l 02/22/2021 3:23 AM [facility] BE Arterial 3.8(H) -2.0 - 2.0 mmol/L 02/22/2021 3:23 AM [facility] Oxyhemoglobin Arterial 96.7 % 02/22/2021 3:[address] [facility] Dexoyhemoglobin (HHB) % 0.8 % 02/22/2021 3:23 AM [facility] Methemoglobin <0.8 0.0 - 2.0 % 02/22/2021 3:23 AM [facility] Carboxyhemoglobin 2.2(H) 0.0 - 2.0 % 2020 3:23 AM [facility] O2 Content Arterial 19.2 Interpret within clinical context mg/dL 02/22/2021 3:23 AM [facility] Hemoglobin by COOX 14.1 12.0 - 17.6 g/dL 02/22/2021 3:23 AM [facility] O2 Saturation Arterial 99 90 - 100 % 02/22/2021 3:23 AM [facility] FI O2 Arterial 55.0 % 02/22/2021 3:23 AM [facility] Blood, arterial ARTERIAL BLOOD SPECIMEN / Unknown Arterial Puncture / Unknown 02/22/2021 3:17 AM CDT 02/22/2021 3:20 AM CDT [facility] - 02/22/2021 3:23 AM CDT Carboxyhemoglobin Normal Concentration: Non-smokers: 0-2%; Smokers: 0-9%; Toxic: >20% Dino Hudson PA-C LAB - BLOOD GASES ORDERABLES [facility] [address] [place] [address], [facility] [phone] * (ABNORMAL) CBC W AUTO DIFFERENTIAL (02/21/2021 11:12 PM CDT) WBC 14.5(H) 3.5 - 10.5 10? 3 /uL 02/21/2021 11:21 PM [facility] RBC 4.88 4.30 - 5.70 10? 6 /uL 02/21/2021 11:21 PM [facility] Hemoglobin 13.7 12.0 - 17.6 g/dL 02/21/2021 11:21 PM [facility] Hematocrit 41.8 35.2 - 51.7 % 02/21/2021 11:21 PM [facility] MCV 85.7 80.7 - 98.3 fL 02/21/2021 11:21 PM [facility] MCH 28.1 26.7 - 34.0 pg 02/21/2021 11:21 PM [facility] MCHC 32.8 30.8 - 35.9 g/dL 02/21/2021 11:21 PM [facility] Platelet Count 374 150 - 400 10? 3 /uL 02/21/2021 11:21 PM [facility] RDW-SD 42.4 36.0 - 50.0 fL 02/21/2021 11:21 PM [facility] RDW-CV 13.7 11.2 - 14.8 % 02/21/2021 11:21 PM [facility] MPV 9.1(L) 9.4 - 12.9 fL 02/21/2021 11:21 PM [facility] nRBC Absolute 0.00 0 10? 3 /uL 02/21/2021 11:21 PM [facility] nRBC Auto 0.0 0 /100 WBC 02/21/2021 11:21 PM [facility] Neutrophils % 82.8(H) 35.0 - 70.0 % 02/21/2021 11:21 PM [facility] Lymphocytes % 6.9(L) 20.0 - 43.0 % 02/21/2021 11:21 PM [facility] Monocytes % 7.6 5.0 - 13.0 % 02/21/2021 11:21 PM [facility] Eosinophils % 1.0 0.0 - 6.0 % 02/21/2021 11:21 PM [facility] Basophil % 0.3 0.0 - 2.0 % 02/21/2021 11:21 PM [facility] Neutrophils Absolute 12.0(H) 1.6 - 7.0 10? 3 /uL 02/21/2021 11:21 PM [facility] Lymphocyte Absolute 1.0(L) 1.1 - 3.9 10? 3 /uL 02/21/2021 11:21 PM [facility] Monocytes Absolute 1.10(H) 0.26 - 1.07 10? 3 /uL 02/21/2021 11:21 PM [facility] Eosinophils Absolute 0.14 0.00 - 0.47 10? 3 /uL 02/21/2021 11:21 PM [facility] Basophils Absolute 0.05 0.00 - 0.08 10? 3 /uL 02/21/2021 11:21 PM [facility] Immature Granulocytes % 1.4(H) 0.0 - 1.0 % 02/21/2021 11:21 PM [facility] Immature Granulocytes Absolute 0.21 02/21/2021 11:21 PM [facility] Blood BLOOD SPECIMEN / Unknown Venipuncture / Unknown 02/21/2021 11:12 PM CDT 02/21/2021 11:17 PM CDT Fredy Felipe MD LAB - HEMATOLOGY ORD ERABLES [facility] [address] [place] [address], [facility] [phone] * (ABNORMAL) BASIC METABOLIC PANEL (CALCIUM TOTAL) (02/21/2021 11:12 PM CDT) BUN 15 7 - 26 mg/dL 02/21/2021 11:42 PM [facility] Creatinine 1.13 0.71 - 1.16 mg/dL 02/21/2021 11:42 PM [facility] Sodium 141 136 - 145 mmol/L 02/21/2021 11:42 PM [facility] Potassium 4.3 3.5 - 4.5 mmol/L 02/21/2021 11:42 PM [facility] Chloride 105 98 - 107 mmol/L 02/21/2021 11:42 PM [facility] CO2 22 22 - 29 mmol/L 02/21/2021 11:42 PM [facility] Glucose 126(H) 70 - 115 mg/dL 02/21/2021 11:42 PM [facility] Calcium 8.5 8.4 - 10.2 mg/dL 02/21/2021 11:42 PM [facility] Anion Gap 18 8 - 18 02/21/2021 11:42 PM [facility] BUN/Creatinine Ratio 13 7 - 23 02/21/2021 11:42 PM [facility] Osmolality Calculated 294 270 - 300 mOsm/kg 02/21/2021 11:42 PM [facility] eGFR by CKD-EPI 84(L) >=90 mL/min/1.7 3 m2 02/21/2021 11:42 PM [facility] Blood BLOOD SPECIMEN / Unknown Venipuncture / Unknown 02/21/2021 11:12 PM CDT 02/21/2021 11:16 PM CDT Fredy Felipe MD LAB - CHEMISTRY JOSE ENRIQUE VELA [facility] [address] [place] [address], [facility] [phone] * (ABNORMAL) BLOOD GASES ART + COOX PANEL (02/21/2021 11:12 PM CDT) pH Arterial 7.60(H) 7.35 - 7.45 pH 02/21/2021 11:20 PM [facility] pO2 Arterial 185(H) 80 - 100 mmHg 02/21/2021 11:20 PM [facility] pCO2 Arterial 26(L) 35 - 45 mmHg 11:20 PM [facility] HCO3 Arterial 26 20 - 30 mmol/l 02/21/2021 11:20 PM [facility] BE Arterial 5.1(H) -2.0 - 2.0 mmol/L 02/21/2021 11:20 PM [facility] Oxyhemoglobin Arterial 97.5 % 02/21/2021 11:20 PM [facility] Dexoyhemoglobin (HHB) % 0.3 % 02/21/2021 11:20 PM [facility] Methemoglobin 0.9 0.0 - 2.0 % 02/21/2021 11:20 PM [facility] Carboxyhemoglobin 1.3 0.0 - 2.0 % 2020 11:20 PM [facility] O2 Content Arterial 20.2 Interpret within clinical context mg/dL 02/21/2021 11:20 PM [facility] Hemoglobin by COOX 14.5 12.0 - 17.6 g/dL 02/21/2021 11:20 PM [facility] O2 Saturation Arterial 100 90 - 100 % 02/21/2021 11:20 PM [facility] FI O2 Arterial 60.0 % 02/21/2021 11:20 PM [facility] Blood, arterial ARTERIAL BLOOD SPECIMEN / Unknown Arterial Puncture / Unknown 02/21/2021 11:12 PM CDT 02/21/2021 11:18 PM CDT Narrative [facility] - 02/21/2021 11:20 PM CDT Carboxyhemoglobin Normal Concentration: Non-smokers: 0-2%; Smokers: 0-9%; Toxic: >20% Fredy Felipe MD LAB - BLOOD GASES OR DERABLES Performing Organization Address [facility] de Phone Number [address] [address], [facility] [phone] * (ABNORMAL) PT-INR [facility] (02/21/2021 11:12 PM CDT) PT 15.2(H) 12.1 - 14.8 Seconds 02/21/2021 11:31 PM CDT [facility] INR 1.2 See Comment 02/21/2021 11:31 PM CDT [facility] Comment:The suggested therap eutic range [...] OR DERABLES Performing Organization Address [facility] Co de Phone Number [address] [address], [facility] [phone] * PHOSPHORUS BLOOD (02/21/2021 11:12 PM CDT) Phosphorus 3.5 2.8 - 5.1 mg/dL 02/21/2021 11:42 PM CDT [facility] Blood BLOOD SPECIMEN / Unknown Venipuncture / Unknown 02/21/2021 11:12 PM CDT 02/21/2021 11:16 PM CDT Fredy Felipe MD LAB - CHEMISTRY JOSE ENRIQUE VELA [address] [address], [place] [phone] * MAGNESIUM BLOOD (02/21/2021 11:12 PM CDT) Magnesium 1.8 1.6 - 2.6 mg/dL 02/21/2021 11:42 PM CDT [facility] Blood BLOOD SPECIMEN / Unknown Venipuncture / Unknown 02/21/2021 11:12 PM CDT 02/21/2021 11:16 PM CDT Fredy Felipe MD LAB - CHEMISTRY JOSE ENRIQUE VELA Performing Organization Address [facility]/ZIP Co de Phone Number [address] [address], [place] [phone] * (ABNORMAL) CALCIUM IONIZED WHOLE BLOOD (02/21/2021 11:12 PM CDT) Calcium Ionized 1.10 mmol/L 02/21/2021 11:21 PM CDT [facility] pH 7.62(H) 7.35 - 7.45 pH 02/21/2021 11:21 PM CDT [facility] Ionized Calcium pH Adjusted 1.20 1.19 - 1.34 mmol/L 02/21/2021 11:21 PM CDT [facility] Blood BLOOD SPECIMEN / Unknown Venipuncture / Unknown 02/21/2021 11:12 PM CDT 02/21/2021 11:18 PM CDT Fredy Felipe MD LAB - CHEMISTRY JOSE ENRIQUE VELA [address] [address], [place] [phone] * (ABNORMAL) TRIGLYCERIDES BLOOD (02/21/2021 11:12 PM CDT) Triglycerides 236(H) <150 mg/dL 02/21/2021 11:42 PM CDT [facility] Comment: ATP III Classification of Triglycerides: ?<150 mg/dL: ??Normal ? 150 - 199 mg/dL: ??Borderline High ? 200 - 400 mg/dL: ??High ?>500 mg/dL: ??Very High Blood BLOOD SPECIMEN / Unknown Venipuncture / Unknown 02/21/2021 11:12 PM CDT 02/21/2021 11:16 PM CDT Fredy Felipe MD LAB - CHEMISTRY JOSE ENRIQUE VELA [facility] [address] [place] [address], [facility] [phone] * XR FOREARM RIGHT 2VW (02/21/2021 9:01 AM CDT) Anatomical Region Laterality Modality Upper Extremity Radiographic Sera ging 02/21/2021 9:07 AM CDT Impressions 02/21/2021 10:41 AM CDT IMPRESSION: No acute radial or ulnar fracture identified. Dictated by Rico Sawant D.O. (Bakery Assistant) I, Dr. CHOCO JIN MD have personally [...] fracture identified. Dictated by Rico Sawant D.O. (Bakery Assistant) I, Dr. CHOCO JIN MD have personally reviewed and interpreted this examination/study. This report was electronically signed by CHOCO JNI MD on02/21/2021 10:41 AM . Fredy Felipe [...] are normal. Dictated by Rico Sawant DO (cath lab radiology technician). IDr. AFRICA M.D. have personally reviewed and [...] are normal. Dictated by Rico Sawant DO (cath lab radiology technician). I, Dr. AFRICA HENRIQUEZ M.D. have personally reviewed and interpreted this examination/study. This report was electronically signed by AFRICA HENRIQUEZ M.D. on 02/21/2021 11:05 AM . Fredy Felipe MD DIAGNOSTIC IMAGING O RDERABLES * (ABNORMAL) CBC W AUTO DIFFERENTIAL (02/20/2021 11:26 PM CDT) WBC 14.6(H) 3.5 - 10.5 10? 3 /uL 02/20/2021 11:36 PM [facility] RBC 5.46 4.30 - 5.70 10? 6 /uL 02/20/2021 11:36 PM [facility] Hemoglobin 15.0 12.0 - 17.6 g/dL 02/20/2021 11:36 PM [facility] Hematocrit 46.7 35.2 - 51.7 % 02/20/2021 11:36 PM [facility] MCV 85.5 80.7 - 98.3 fL 02/20/2021 11:36 PM [facility] MCH 27.5 26.7 - 34.0 pg 02/20/2021 11:36 PM [facility] MCHC 32.1 30.8 - 35.9 g/dL 02/20/2021 11:36 PM [facility] Platelet Count 392 150 - 400 10? 3 /uL 02/20/2021 11:36 PM [facility] RDW-SD 42.8 36.0 - 50.0 fL 02/20/2021 11:36 PM [facility] RDW-CV 13.9 11.2 - 14.8 % 02/20/2021 11:36 PM [facility] MPV 9.0(L) 9.4 - 12.9 fL 02/20/2021 11:36 PM [facility] nRBC Absolute 0.00 0 10? 3 /uL 02/20/2021 11:36 PM [facility] nRBC Auto 0.0 0 /100 WBC 02/20/2021 11:36 PM [facility] Neutrophils % 82.1(H) 35.0 - 70.0 % 02/20/2021 11:36 PM [facility] Lymphocytes % 5.4(L) 20.0 - 43.0 % 02/20/2021 11:36 PM [facility] Monocytes % 9.4 5.0 - 13.0 % 02/20/2021 11:36 PM [facility] Eosinophils % 2.0 0.0 - 6.0 % 02/20/2021 11:36 PM [facility] Basophil % 0.4 0.0 - 2.0 % 02/20/2021 11:36 PM [facility] Neutrophils Absolute 12.0(H) 1.6 - 7.0 10? 3 /uL 02/20/2021 11:36 PM [facility] Lymphocyte Absolute 0.8(L) 1.1 - 3.9 10? 3 /uL 02/20/2021 11:36 PM [facility] Monocytes Absolute 1.37(H) 0.26 - 1.07 10? 3 /uL 02/20/2021 11:36 PM [facility] Eosinophils Absolute 0.29 0.00 - 0.47 10? 3 /uL 02/20/2021 11:36 PM [facility] Basophils Absolute 0.06 0.00 - 0.08 10? 3 /uL 02/20/2021 11:36 PM [facility] Immature Granulocytes % 0.7 0.0 - 1.0 % 02/20/2021 11:36 PM [facility] Immature Granulocytes Absolute 0.10 02/20/2021 11:36 PM [facility] Blood BLOOD SPECIMEN / Unknown Venipuncture / Unknown 02/20/2021 11:26 PM CDT 02/20/2021 11:31 PM CDT Fredy Felipe MD LAB - HEMATOLOGY ORD ERABLES [facility] [address] [place] [address], [facility] [phone] * BASIC METABOLIC PANEL (CALCIUM TOTAL) (02/20/2021 11:26 PM CDT) BUN 12 7 - 26 mg/dL 02/20/2021 11:54 PM T [facility] Creatinine 0.75 0.71 - 1.16 mg/dL 02/20/2021 11:54 PM [facility] Sodium 142 136 - 145 mmol/L 02/20/2021 11:54 PM [facility] Potassium 4.0 3.5 - 4.5 mmol/L 02/20/2021 11:54 PM [facility] Chloride 105 98 - 107 mmol/L 02/20/2021 11:54 PM [facility] CO2 26 22 - 29 mmol/L 02/20/2021 11:54 PM [facility] Glucose 106 70 - 115 mg/dL 02/20/2021 11:54 PM [facility] Calcium 8.8 8.4 - 10.2 mg/dL 02/20/2021 11:54 PM [facility] Anion Gap 15 8 - 18 02/20/2021 11:54 PM [facility] BUN/Creatinine Ratio 16 7 - 23 02/20/2021 11:54 PM [facility] Osmolality Calculated 294 270 - 300 mOsm/kg 02/20/2021 11:54 PM [facility] eGFR by CKD-EPI >90 >=90 mL/min/1.7 3 m2 02/20/2021 11:54 PM [facility] Blood BLOOD SPECIMEN / Unknown Venipuncture / Unknown 02/20/2021 11:26 PM CDT 02/20/2021 11:30 PM CDT Fredy Felipe MD LAB - CHEMISTRY JOSE ENRIQUE Pena Organization Address City/State/ZIP Co de Phone Number [facility] [address] [place] [address], [facility] [phone] * (ABNORMAL) BLOOD GASES ART + COOX PANEL (02/20/2021 11:26 PM CDT) pH Arterial 7.41 7.35 - 7.45 pH 02/20/2021 11:32 PM [facility] pO2 Arterial 131(H) 80 - 100 mmHg 02/20/2021 11:32 PM [facility] pCO2 Arterial 40 35 - 45 mmHg 11:32 PM [facility] HCO3 Arterial 25 20 - 30 mmol/l 02/20/2021 11:32 PM [facility] BE Arterial 0.7 -2.0 - 2.0 mmol/L 02/20/2021 11:32 PM [facility] Oxyhemoglobin Arterial 96.8 % 02/20/2021 11:32 PM [facility] Dexoyhemoglobin (HHB) % 0.0 % 02/20/2021 11:32 PM [facility] Methemoglobin <0.8 0.0 - 2.0 % 02/20/2021 11:32 PM [facility] Carboxyhemoglobin 2.7(H) 0.0 - 2.0 % 2020 11:32 PM [facility] O2 Content Arterial 21.3 Interpret within clinical context mg/dL 02/20/2021 11:32 PM [facility] Hemoglobin by COOX 15.5 12.0 - 17.6 g/dL 02/20/2021 11:32 PM [facility] O2 Saturation Arterial 100 90 - 100 % 02/20/2021 11:32 PM [facility] FI O2 Arterial 100.0 % 02/20/2021 11:32 PM [facility] Blood, arterial ARTERIAL BLOOD SPECIMEN / Unknown Arterial Puncture / Unknown 02/20/2021 11:26 PM CDT 02/20/2021 11:30 PM CDT Narrative [facility] - 02/20/2021 11:32 PM CDT Carboxyhemoglobin Normal Concentration: Non-smokers: 0-2%; Smokers: 0-9%; Toxic: >20% Fredy Felipe MD LAB - BLOOD GASES OR DERABLES Performing Organization Address [facility] Co de Phone Number [address] [address], [facility] [phone] * PT-INR [facility] (02/20/2021 11:26 PM CDT) PT 14.8 12.1 - 14.8 Seconds 02/20/2021 11:45 PM CDT [facility] INR 1.2 See Comment 02/20/2021 11:45 PM CDT [facility] Comment:The suggested therap eutic range [...] OR DERABLES Performing Organization Address [facility] Co de Phone Number [address] [address], [facility] [phone] * PHOSPHORUS BLOOD (02/20/2021 11:26 PM CDT) Phosphorus 4.6 2.8 - 5.1 mg/dL 02/20/2021 11:54 PM CDT [facility] Blood BLOOD SPECIMEN / Unknown Venipuncture / Unknown 02/20/2021 11:26 PM CDT 02/20/2021 11:30 PM CDT Fredy Felipe MD LAB - CHEMISTRY JOSE ENRIQUE VELA Performing Organization Address City/[facility]/ZIP Co de Phone Number [address] [place] [address], [place] [phone] * MAGNESIUM BLOOD (02/20/2021 11:26 PM CDT) Magnesium 2.0 1.6 - 2.6 mg/dL 02/20/2021 11:54 PM CDT [facility] Blood BLOOD SPECIMEN / Unknown Venipuncture / Unknown 02/20/2021 11:26 PM CDT 02/20/2021 11:30 PM CDT Fredy Felipe MD LAB - CHEMISTRY JOSE ENRIQUE VELA [address] [address], [place] [phone] * (ABNORMAL) CALCIUM IONIZED WHOLE BLOOD (02/20/2021 11:26 PM CDT) Calcium Ionized 1.14 mmol/L 02/20/2021 11:32 PM CDT [facility] pH 7.41 7.35 - 7.45 pH 02/20/2021 11:32 PM CDT [facility] Ionized Calcium pH Adjusted 1.14(L) 1.19 - 1.34 mmol/L 02/20/2021 11:32 PM CDT [facility] Blood BLOOD SPECIMEN / Unknown Venipuncture / Unknown 02/20/2021 11:26 PM CDT 02/20/2021 11:30 PM CDT Fredy Felipe MD LAB - CHEMISTRY JOSE ENRIQUE VELA [address] [address], [place] [phone] * XR CHEST 1VW PORTABLE (02/20/2021 1:56 PM CDT) Anatomical Region Laterality Modality Chest Radiographic Sera ging 02/20/2021 3:53 PM CDT Impressions 02/20/2021 4:27 PM CDT FINDINGS/IMPRESSION: Lines and tubes: *Endotracheal tube terminates in mid thoracic trachea. *There is an NG/OG coursing below the diaphragm, terminus outside the [id number]. *There is a left subclavian approach central [...] is stable. Dictated by Rico Sawant DO (cath lab radiology technician). I, Dr. AFRICA HENRIQUEZ M.D. have personally [...] coursing below the diaphragm, terminus outside the [id number]. *There is a left subclavian approach central [...] is stable. Dictated by Rico Sawant DO (cath lab radiology technician). Najma, Dr. AFRICA HENRIQUEZ M.D. have personally [...] below the diaphragm, the segments of the [id number]. *There is a left subclavian approach central [...] is stable. Dictated by Phan Brothers MD (cath lab radiology technician). Dr. SUNITA Yao have personally reviewed and interpreted this examination/study. This report was electronically signed by SNUITA BAILEY ??on 02/20/2021 3:06 PM . Narrative [...] below the diaphragm, the segments of the [id number]. *There is a left subclavian approach central [...] is stable. Dictated by Phan Brothers MD (cath lab radiology technician). I, Dr. SUNITA BAILEY have personally reviewed and interpreted this examination/study. This report was electronically signed by SUNITA BAILEY on 13:06 PM . Fredy Felipe MD DIAGNOSTIC IMAGING O RDERABLES * BLOOD GASES ART + COOX PANEL (02/20/2021 3:07 AM [facility]) pH Arterial 7.41 7.35 - 7.45 pH 02/20/2021 3:12 AM [facility] pO2 Arterial 88 80 - 100 mmHg 02/20/2021 3:12 AM [facility] pCO2 Arterial 41 35 - 45 mmHg 3:12 AM [facility] HCO3 Arterial 26 20 - 30 mmol/l 02/20/2021 3:[address] [facility] BE Arterial 1.2 -2.0 - 2.0 mmol/L 02/20/2021 3:[address] [facility] Oxyhemoglobin Arterial 96.0 % 02/20/2021 3:[address] [facility] Dexoyhemoglobin (HHB) % 1.4 % 02/20/2021 3:[address] [facility] Methemoglobin 0.9 0.0 - 2.0 % 02/20/2021 3:[address] [facility] Carboxyhemoglobin 1.7 0.0 - 2.0 % 2020 3:12 AM [facility] O2 Content Arterial 18.7 Interpret within clinical context mg/dL 02/20/2021 3:12 AM [facility] Hemoglobin by COOX 13.8 12.0 - 17.6 g/dL 02/20/2021 3:12 AM [facility] O2 Saturation Arterial 99 90 - 100 % 02/20/2021 3:12 AM [facility] FI O2 Arterial 60.0 % 02/20/2021 3:12 AM [facility] Blood, arterial ARTERIAL BLOOD SPECIMEN / Unknown Arterial Puncture / Unknown 02/20/2021 3:07 AM CDT 02/20/2021 3:10 AM [facility] - 02/20/2021 3:12 AM T Carboxyhemoglobin Normal Concentration: Non-smokers: 0-2%; Smokers: 0-9%; Toxic: >20% Delilah Stubbs APRN-Tal [facility] - BLOOD GASES ORDERABLES [address] [id number], [facility] [phone] * (ABNORMAL) CBC W AUTO DIFFERENTIAL (02/19/2021 11:36 PM CDT) WBC 13.2(H) 3.5 - 10.5 10? 3 /uL 02/19/2021 11:45 PM [facility] RBC 4.92 4.30 - 5.70 10? 6 /uL 02/19/2021 11:45 PM [facility] Hemoglobin 13.8 12.0 - 17.6 g/dL 02/19/2021 11:45 PM [facility] Hematocrit 42.3 35.2 - 51.7 % 02/19/2021 11:45 PM [facility] MCV 86.0 80.7 - 98.3 fL 02/19/2021 11:45 PM [facility] MCH 28.0 26.7 - 34.0 pg 02/19/2021 11:45 PM [facility] MCHC 32.6 30.8 - 35.9 g/dL 02/19/2021 11:45 PM [facility] Platelet Count 371 150 - 400 10? 3 /uL 02/19/2021 11:45 PM [facility] RDW-SD 43.7 36.0 - 50.0 fL 02/19/2021 11:45 PM [facility] RDW-CV 13.8 11.2 - 14.8 % 02/19/2021 11:45 PM [facility] MPV 8.8(L) 9.4 - 12.9 fL 02/19/2021 11:45 PM [facility] nRBC Absolute 0.00 0 10? 3 /uL 02/19/2021 11:45 PM [facility] nRBC Auto 0.0 0 /100 WBC 02/19/2021 11:45 PM [facility] Neutrophils % 78.5(H) 35.0 - 70.0 % 02/19/2021 11:45 PM [facility] Lymphocytes % 8.3(L) 20.0 - 43.0 % 02/19/2021 11:45 PM [facility] Monocytes % 10.4 5.0 - 13.0 % 02/19/2021 11:45 PM [facility] Eosinophils % 1.6 0.0 - 6.0 % 02/19/2021 11:45 PM [facility] Basophil % 0.4 0.0 - 2.0 % 02/19/2021 11:45 PM [facility] Neutrophils Absolute 10.4(H) 1.6 - 7.0 10? 3 /uL 02/19/2021 11:45 PM [facility] Lymphocyte Absolute 1.1 1.1 - 3.9 10? 3 /uL 02/19/2021 11:45 PM [facility] Monocytes Absolute 1.37(H) 0.26 - 1.07 10? 3 /uL 02/19/2021 11:45 PM [facility] Eosinophils Absolute 0.21 0.00 - 0.47 10? 3 /uL 02/19/2021 11:45 PM [facility] Basophils Absolute 0.05 0.00 - 0.08 10? 3 /uL 02/19/2021 11:45 PM [facility] Immature Granulocytes % 0.8 0.0 - 1.0 % 02/19/2021 11:45 PM [facility] Immature Granulocytes Absolute 0.11 02/19/2021 11:45 PM [facility] Blood BLOOD SPECIMEN / Unknown Venipuncture / Unknown 02/19/2021 11:36 PM CDT 02/19/2021 11:41 PM CDT Fredy Felipe MD LAB - HEMATOLOGY ORD ERABLES [facility] [address] [place] [id number], [facility] [phone] * BASIC METABOLIC PANEL (CALCIUM TOTAL) (02/19/2021 11:36 PM CDT) BUN 10 7 - 26 mg/dL 02/20/2021 12:08 AM [facility] Creatinine 0.72 0.71 - 1.16 mg/dL 02/20/2021 12:08 AM [facility] Sodium 140 136 - 145 mmol/L 02/20/2021 12:08 AM [facility] Potassium 4.3 3.5 - 4.5 mmol/L 02/20/2021 12:08 AM [facility] Chloride 105 98 - 107 mmol/L 02/20/2021 12:08 AM [facility] CO2 25 22 - 29 mmol/L 02/20/2021 12:08 AM [facility] Glucose 92 70 - 115 mg/dL 02/20/2021 12:08 AM [facility] Calcium 8.9 8.4 - 10.2 mg/dL 02/20/2021 12:08 AM [facility] Anion Gap 14 8 - 18 02/20/2021 12:08 AM [facility] BUN/Creatinine Ratio 14 7 - 23 02/20/2021 12:08 AM [facility] Osmolality Calculated 289 270 - 300 mOsm/kg 02/20/2021 12:08 AM [facility] eGFR by CKD-EPI >90 >=90 mL/min/1.7 3 m2 02/20/2021 12:08 AM [facility] Blood BLOOD SPECIMEN / Unknown Venipuncture / Unknown 02/19/2021 11:36 PM CDT 02/19/2021 11:41 PM CDT Fredy Felipe MD LAB - CHEMISTRY JOSE ENRIQUE VELA [facility] Organization Address City/State/ZIP Co de Phone Number [facility] [address] [place] [address], [facility] [phone] * BLOOD GASES ART + COOX PANEL (02/19/2021 11:36 PM CDT) pH Arterial 7.42 7.35 - 7.45 pH 02/19/2021 11:42 PM [facility] pO2 Arterial 93 80 - 100 mmHg 02/19/2021 11:42 PM [facility] pCO2 Arterial 41 35 - 45 mmHg 11:42 PM [facility] HCO3 Arterial 27 20 - 30 mmol/l 02/19/2021 11:42 PM [facility] BE Arterial 1.9 -2.0 - 2.0 mmol/L 02/19/2021 11:42 PM [facility] Oxyhemoglobin Arterial 96.2 % 02/19/2021 11:42 PM [facility] Dexoyhemoglobin (HHB) % 1.5 % 02/19/2021 11:42 PM [facility] Methemoglobin 1.0 0.0 - 2.0 % 02/19/2021 11:42 PM [facility] Carboxyhemoglobin 1.4 0.0 - 2.0 % 2020 11:42 PM [facility] O2 Content Arterial 19.5 Interpret within clinical context mg/dL 02/19/2021 11:42 PM [facility] Hemoglobin by COOX 14.4 12.0 - 17.6 g/dL 02/19/2021 11:42 PM [facility] O2 Saturation Arterial 99 90 - 100 % 02/19/2021 11:42 PM CDT [facility] FI O2 Arterial 50.0 % 02/19/2021 11:42 PM CDT [facility] Blood, arterial ARTERIAL BLOOD SPECIMEN / Unknown Arterial Puncture / Unknown 02/19/2021 11:36 PM CDT 02/19/2021 11:40 PM CDT Narrative [facility] - 02/19/2021 11:42 PM CDT Carboxyhemoglobin Normal Concentration: Non-smokers: 0-2%; Smokers: 0-9%; Toxic: >20% Fredy Felipe MD LAB - BLOOD GASES OR DERABLES Performing Organization Address City/[facility]/ZIP Co de Phone Number [address] [address], [facility] [phone] * PT-INR [facility] (02/19/2021 11:36 PM CDT) PT 14.1 12.1 - 14.8 Seconds 02/19/2021 11:53 PM T [facility] INR 1.1 See Comment 02/19/2021 11:53 PM T [facility] Comment:The suggested therap eutic range for standard coumadin (warfarin) therapy is an INR of 2.0-3.0. For high-risk patients (Mechanical Mitral Valve Prosthesis, etc.), the suggested prophylactic therapeutic range is an INR of 2.5-3.5. Blood BLOOD SPECIMEN / Unknown Venipuncture / Unknown 02/19/2021 11:36 PM CDT 02/19/2021 11:44 PM CDT Fredy Felipe MD LAB - COAGULATION OR DERABLES [address] [address], [facility] [phone] * PHOSPHORUS BLOOD (02/19/2021 11:36 PM CDT) Phosphorus 3.8 2.8 - 5.1 mg/dL 02/20/2021 12:08 AM CDT [facility] Blood BLOOD SPECIMEN / Unknown Venipuncture / Unknown 02/19/2021 11:36 PM CDT 02/19/2021 11:41 PM CDT Fredy Felipe MD LAB - CHEMISTRY JOSE ENRIQUE VELA Performing Organization Address City/[facility]/ZIP Co de Phone Number [address] [address], [place] [phone] * MAGNESIUM BLOOD (02/19/2021 11:36 PM CDT) Magnesium 1.9 1.6 - 2.6 mg/dL 02/20/2021 12:08 AM CDT [facility] Blood BLOOD SPECIMEN / Unknown Venipuncture / Unknown 02/19/2021 11:36 PM CDT 02/19/2021 11:41 PM CDT Fredy Felipe MD LAB - CHEMISTRY JOSE ENRIQUE VELA Performing Organization Address City/[facility]/ZIP Co de Phone Number [address] [address], [place] [phone] * CALCIUM IONIZED WHOLE BLOOD (02/19/2021 11:36 PM CDT) Calcium Ionized 1.20 mmol/L 02/19/2021 11:43 PM CDT [facility] pH 7.43 7.35 - 7.45 pH 02/19/2021 11:43 PM CDT [facility] Ionized Calcium pH Adjusted 1.21 1.19 - 1.34 mmol/L 02/19/2021 11:43 PM CDT [facility] Blood BLOOD SPECIMEN / Unknown Venipuncture / Unknown 02/19/2021 11:36 PM CDT 02/19/2021 11:40 PM CDT Fredy Felipe MD LAB - CHEMISTRY JOSE ENRIQUE VELA Performing Organization Address City/[facility]/ZIP Co de Phone Number [address] [address], [place] [phone] * XR CHEST 1VW PORTABLE (02/19/2021 5:10 [...] is normal. Dictated by Rico Sawant DO (cath lab radiology technician). I, Dr. NAOMY LAZO MD, [facility] have personally reviewed and interpreted this examination/study. This report was electronically signed by NAOMY LAZO MD, [facility] ??on 02/20/2021 2:18 PM . Narrative [...] is normal. Dictated by Rico Sawant DO (cath lab radiology technician). IDr. NAOMY MD, [facility] have personally reviewedand interpreted this examination/study. This report was electronically signed by NAOMY LAZO MD, [facility] on 02/20/2021 2:18 PM . Fredy [...] Dr. Carrion Dictated by Bety Rose MD (cath lab radiology technician). This report was approved ??by Bety Rose [...] Dr. Carrion Dictated by Bety Rose MD (cath lab radiology technician). This report was approved by Bety Rose on 02/20/2021 11:19 AM . I, Dr. JASWINDER CARRION have personally reviewed and interpreted this examination/study. This report was electronically signed by JASWINDER CARRION on02/20/2021 11:38 AM . Fredy Felipe MD MR ORDERABLES * TYPE + SCREEN PANEL (02/19/2021 7:27 AM CDT) Antibody Screen NEG 8:50 AM CDT [facility] BLOOD BANK LAB ABO Rh O POS 02/19/2021 8:50 AM CDT [facility] BLOOD BANK LAB Blood Bank BLOOD SPECIMEN / Unknown Venipuncture / Unknown 02/19/2021 7:27 AM CDT 02/19/2021 7:34 AM CDT Fredy Felipe MD LAB - BLOOD BANK ORD ERABLES [facility] BLOOD BANK LAB [address] [place] [address], [facility] [phone] * XR CHEST 1VW PORTABLE (02/19/2021 5:26 [...] is normal. Dictated by Rico Sawant DO (cath lab radiology technician). I, Dr. OSWALDO CLEMONS have personally reviewed [...] is normal. Dictated by Rico Sawant DO (cath lab radiology technician). Dr. OSWALDO Yao have personally reviewed and interpreted this examination/study. This report was electronically signed by OSWALDO CLEMONS on 02/19/2021 3:43PM . Fredy Felipe MD DIAGNOSTIC IMAGING O RDERABLES * (ABNORMAL) CBC W AUTO DIFFERENTIAL (02/18/2021 11:03 PM [facility]) WBC 11.9(H) 3.5 - 10.5 10? 3 /uL 02/18/2021 11:19 PM [facility] RBC 4.74 4.30 - 5.70 10? 6 /uL 02/18/2021 11:19 PM [facility] Hemoglobin 13.1 12.0 - 17.6 g/dL 02/18/2021 11:19 PM [facility] Hematocrit 40.4 35.2 - 51.7 % 02/18/2021 11:19 PM [facility] MCV 85.2 80.7 - 98.3 fL 02/18/2021 11:19 PM [facility] MCH 27.6 26.7 - 34.0 pg 02/18/2021 11:19 PM [facility] MCHC 32.4 30.8 - 35.9 g/dL 02/18/2021 11:19 PM [facility] Platelet Count 325 150 - 400 10? 3 /uL 02/18/2021 11:19 PM [facility] RDW-SD 43.3 36.0 - 50.0 fL 02/18/2021 11:19 PM [facility] RDW-CV 14.0 11.2 - 14.8 % 02/18/2021 11:19 PM [facility] MPV 9.2(L) 9.4 - 12.9 fL 02/18/2021 11:19 PM [facility] nRBC Absolute 0.00 0 10? 3 /uL 02/18/2021 11:19 PM [facility] nRBC Auto 0.0 0 /100 WBC 02/18/2021 11:19 PM [facility] Neutrophils % 79.2(H) 35.0 - 70.0 % 02/18/2021 11:19 PM [facility] Lymphocytes % 10.3(L) 20.0 - 43.0 % 02/18/2021 11:19 PM CDT [facility] Monocytes % 9.5 5.0 - 13.0 % 02/18/2021 11:19 PM T [facility] Eosinophils % 0.3 0.0 - 6.0 % 02/18/2021 11:19 PM [facility] Basophil % 0.2 0.0 - 2.0 % 02/18/2021 11:19 PM [facility] Neutrophils Absolute 9.4(H) 1.6 - 7.0 10? 3 /uL 02/18/2021 11:19 PM [facility] Lymphocyte Absolute 1.2 1.1 - 3.9 10? 3 /uL 02/18/2021 11:19 PM [facility] Monocytes Absolute 1.13(H) 0.26 - 1.07 10? 3 /uL 02/18/2021 11:19 PM [facility] Eosinophils Absolute 0.04 0.00 - 0.47 10? 3 /uL 02/18/2021 11:19 PM [facility] Basophils Absolute 0.02 0.00 - 0.08 10? 3 /uL 02/18/2021 11:19 PM [facility] Immature Granulocytes % 0.5 0.0 - 1.0 % 02/18/2021 11:19 PM [facility] Immature Granulocytes Absolute 0.06 02/18/2021 11:19 PM [facility] Blood BLOOD SPECIMEN / Unknown Venipuncture / Unknown 02/18/2021 11:03 PM CDT 02/18/2021 11:08 PM CDT Fredy Felipe MD LAB - HEMATOLOGY ORD ERABLES [facility] [address] [place] [address], [facility] [phone] * (ABNORMAL) BASIC METABOLIC PANEL (CALCIUM TOTAL) (02/18/2021 11:03 PM CDT) BUN 9 7 - 26 mg/dL 02/18/2021 11:32 PM T [facility] Creatinine 0.75 0.71 - 1.16 mg/dL 02/18/2021 11:32 PM [facility] Sodium 142 136 - 145 mmol/L 02/18/2021 11:32 PM [facility] Potassium 3.9 3.5 - 4.5 mmol/L 02/18/2021 11:32 PM [facility] Chloride 108(H) 98 - 107 mmol/L 02/18/2021 11:32 PM [facility] CO2 25 22 - 29 mmol/L 02/18/2021 11:32 PM [facility] Glucose 92 70 - 115 mg/dL 02/18/2021 11:32 PM [facility] Calcium 8.4 8.4 - 10.2 mg/dL 02/18/2021 11:32 PM [facility] Anion Gap 13 8 - 18 02/18/2021 11:32 PM [facility] BUN/Creatinine Ratio 12 7 - 23 02/18/2021 11:32 PM [facility] Osmolality Calculated 292 270 - 300 mOsm/kg 02/18/2021 11:32 PM [facility] eGFR by CKD-EPI >90 >=90 mL/min/1.7 3 m2 02/18/2021 11:32 PM [facility] Blood BLOOD SPECIMEN / Unknown Venipuncture / Unknown 02/18/2021 11:03 PM CDT 02/18/2021 11:08 PM CD Fredy Felipe MD LAB - CHEMISTRY JOSE ENRIQUE VELA [facility] Organization Address City/State/ZIP Co de Phone Number [facility] [address] [place] [address], [facility] [phone] * (ABNORMAL) BLOOD GASES ART + COOX PANEL (02/18/2021 11:03 PM CDT) pH Arterial 7.46(H) 7.35 - 7.45 pH 02/18/2021 11:11 PM [facility] pO2 Arterial 145(H) 80 - 100 mmHg 02/18/2021 11:11 PM [facility] pCO2 Arterial 37 35 - 45 mmHg 11:11 PM [facility] HCO3 Arterial 26 20 - 30 mmol/l 02/18/2021 11:11 PM [facility] BE Arterial 2.5(H) -2.0 - 2.0 mmol/L 02/18/2021 11:11 PM [facility] Oxyhemoglobin Arterial 97.5 % 02/18/2021 11:11 PM [facility] Dexoyhemoglobin (HHB) % 0.1 % 02/18/2021 11:11 PM [facility] Methemoglobin <0.8 0.0 - 2.0 % 02/18/2021 11:11 PM [facility] Carboxyhemoglobin 1.7 0.0 - 2.0 % 2020 11:11 PM [facility] O2 Content Arterial 18.8 Interpret within clinical context mg/dL 02/18/2021 11:11 PM [facility] Hemoglobin by COOX 13.5 12.0 - 17.6 g/dL 02/18/2021 11:11 PM [facility] O2 Saturation Arterial 100 90 - 100 % 02/18/2021 11:11 PM [facility] FI O2 Arterial 40.0 % 02/18/2021 11:11 PM [facility] Blood, arterial ARTERIAL BLOOD SPECIMEN / Unknown Arterial Puncture / Unknown 02/18/2021 11:03 PM T 02/18/2021 11:08 PM [facility] - 02/18/2021 11:11 PM [facility] Carboxyhemoglobin Normal Concentration: Non-smokers: 0-2%; Smokers: 0-9%; Toxic: >20% Fredy Felipe MD LAB - BLOOD GASES OR DERABLES [facility] [address] [place] [address], [facility] [phone] * PT-INR [facility] (02/18/2021 11:03 PM [facility]) PT 14.1 12.1 - 14.8 Seconds 02/18/2021 11:23 PM [facility] INR 1.1 See Comment 02/18/2021 11:23 PM CDT [facility] Comment:The suggested therap eutic range [...] OR DERABLES Performing Organization Address [facility]/ZIP Co de Phone Number [address] [address], [place] [phone] * (ABNORMAL) PHOSPHORUS BLOOD (02/18/2021 11:03 PM CDT) Phosphorus 2.3(L) 2.8 - 5.1 mg/dL 02/18/2021 11:33 PM CDT [facility] Blood BLOOD SPECIMEN / Unknown Venipuncture / Unknown 02/18/2021 11:03 PM CDT 02/18/2021 11:08 PM CDT Fredy Felipe MD LAB - CHEMISTRY JOSE ENRIQUE VELA Performing Organization Address [facility]/ZIP Co de Phone Number [address] [address], [place] [phone] * MAGNESIUM BLOOD (02/18/2021 11:03 PM CDT) Magnesium 1.7 1.6 - 2.6 mg/dL 02/18/2021 11:32 PM CDT [facility] Blood BLOOD SPECIMEN / Unknown Venipuncture / Unknown 02/18/2021 11:03 PM CDT 02/18/2021 11:08 PM CDT Fredy Felipe MD LAB - CHEMISTRY JOSE ENRIQUE VELA Performing Organization Address City/[facility]/ZIP Co de Phone Number [address] [address], [place] [phone] * (ABNORMAL) CALCIUM IONIZED WHOLE BLOOD (02/18/2021 11:03 PM CDT) Calcium Ionized 1.15 mmol/L 02/18/2021 11:10 PM CDT [facility] pH 7.45 7.35 - 7.45 pH 02/18/2021 11:10 PM CDT [facility] Ionized Calcium pH Adjusted 1.17(L) 1.19 - 1.34 mmol/L 02/18/2021 11:10 PM CDT [facility] Blood BLOOD SPECIMEN / Unknown Venipuncture / Unknown 02/18/2021 11:03 PM CDT 02/18/2021 11:08 PM CDT Fredy Felipe MD LAB - CHEMISTRY JOSE ENRIQUE VELA [facility] Organization Address City/State/ZIP Co de Phone Number [facility] [address] [place] [address], [facility] [phone] * XR CHEST 1VW PORTABLE (02/18/2021 5:25 AM CDT) Anatomical Region Laterality Modality Chest Radiographic Sera ging 02/18/2021 2:01 PM CDT Impressions 02/18/2021 4:01 PM CDT IMPRESSION: 1.Support devices as above. 2.Bilateral pulmonary opacities redemonstrated. Report dictated by Simone Alexander MD, PhD (cath lab radiology technician). I, Dr. CHOCO JIN MD have personally reviewed and interpreted this examination/study. This report was electronically signed by CHOCO JNI MD ??on 02/18/2021 4:01 PM . Narrative [...] Report dictated by Simone Alexander MD, PhD (cath lab radiology technician). I, Dr. CHOCO JIN MD have personally reviewed and interpreted this examination/study. This report was electronically signed by CHOCO JIN MD on02/18/2021 4:01 PM . Fredy Felipe MD DIAGNOSTIC IMAGING O RDERABLES * (ABNORMAL) CBC W AUTO DIFFERENTIAL (02/18/2021 12:04 AM CDT) WBC 16.3(H) 3.5 - 10.5 10? 3 /uL 02/18/2021 12:16 AM [facility] RBC 4.69 4.30 - 5.70 10? 6 /uL 02/18/2021 12:16 AM [facility] Hemoglobin 13.1 12.0 - 17.6 g/dL 02/18/2021 12:16 AM [facility] Hematocrit 40.9 35.2 - 51.7 % 02/18/2021 12:16 AM [facility] MCV 87.2 80.7 - 98.3 fL 02/18/2021 12:16 AM [facility] MCH 27.9 26.7 - 34.0 pg 02/18/2021 12:16 AM [facility] MCHC 32.0 30.8 - 35.9 g/dL 02/18/2021 12:16 AM [facility] Platelet Count 292 150 - 400 10? 3 /uL 02/18/2021 12:16 AM [facility] RDW-SD 45.6 36.0 - 50.0 fL 02/18/2021 12:16 AM [facility] RDW-CV 14.2 11.2 - 14.8 % 02/18/2021 12:16 AM [facility] MPV 9.4 9.4 - 12.9 fL 02/18/2021 12:16 AM [facility] nRBC Absolute 0.00 0 10? 3 /uL 02/18/2021 12:16 AM [facility] nRBC Auto 0.0 0 /100 WBC 02/18/2021 12:16 AM [facility] Neutrophils % 85.7(H) 35.0 - 70.0 % 02/18/2021 12:16 AM [facility] Lymphocytes % 6.2(L) 20.0 - 43.0 % 02/18/2021 12:16 AM [facility] Monocytes % 7.4 5.0 - 13.0 % 02/18/2021 12:16 AM [facility] Eosinophils % 0.0 0.0 - 6.0 % 02/18/2021 12:16 AM [facility] Basophil % 0.2 0.0 - 2.0 % 02/18/2021 12:16 AM [facility] Neutrophils Absolute 13.9(H) 1.6 - 7.0 10? 3 /uL 02/18/2021 12:16 AM [facility] Lymphocyte Absolute 1.0(L) 1.1 - 3.9 10? 3 /uL 02/18/2021 12:16 AM [facility] Monocytes Absolute 1.21(H) 0.26 - 1.07 10? 3 /uL 02/18/2021 12:16 AM [facility] Eosinophils Absolute 0.00 0.00 - 0.47 10? 3 /uL 02/18/2021 12:16 AM [facility] Basophils Absolute 0.03 0.00 - 0.08 10? 3 /uL 02/18/2021 12:16 AM [facility] Immature Granulocytes % 0.5 0.0 - 1.0 % 02/18/2021 12:16 AM [facility] Immature Granulocytes Absolute 0.08 02/18/2021 12:16 AM [facility] Blood BLOOD SPECIMEN / Unknown Venipuncture / Unknown 02/18/2021 12:04 AM CDT 02/18/2021 12:08 AM CDT Fredy Felipe MD LAB - HEMATOLOGY ORD ERABLES Performing Organization Address City/State/[facility] Co de Phone Number [facility] [address] [place] [address], [facility] [phone] * BASIC METABOLIC PANEL (CALCIUM TOTAL) (02/18/2021 12:04 AM CDT) BUN 11 7 - 26 mg/dL 02/18/2021 12:32 AM [facility] Creatinine 0.83 0.71 - 1.16 mg/dL 02/18/2021 12:32 AM [facility] Sodium 140 136 - 145 mmol/L 02/18/2021 12:32 AM [facility] Potassium 4.2 3.5 - 4.5 mmol/L 02/18/2021 12:32 AM [facility] Chloride 106 98 - 107 mmol/L 02/18/2021 12:32 AM [facility] CO2 24 22 - 29 mmol/L 02/18/2021 12:32 AM [facility] Glucose 102 70 - 115 mg/dL 02/18/2021 12:32 AM [facility] Calcium 8.6 8.4 - 10.2 mg/dL 02/18/2021 12:32 AM [facility] Anion Gap 14 8 - 18 02/18/2021 12:32 AM [facility] BUN/Creatinine Ratio 13 7 - 23 02/18/2021 12:32 AM [facility] Osmolality Calculated 290 270 - 300 mOsm/kg 02/18/2021 12:32 AM [facility] eGFR by CKD-EPI >90 >=90 mL/min/1.7 3 m2 02/18/2021 12:32 AM [facility] Blood BLOOD SPECIMEN / Unknown Venipuncture / Unknown 02/18/2021 12:04 AM T 02/18/2021 12:08 AM [facility] Fredy Felipe MD LAB - CHEMISTRY JOSE ENRIQUE VELA [facility] Organization Address City/State/ZIP Co de Phone Number [facility] [address] [place] [phone], [facility] [phone] * (ABNORMAL) BLOOD GASES ART + COOX PANEL (02/18/2021 12:04 AM [facility]) pH Arterial 7.40 7.35 - 7.45 pH 02/18/2021 12:11 AM [facility] pO2 Arterial 126(H) 80 - 100 mmHg 02/18/2021 12:11 AM [facility] pCO2 Arterial 42 35 - 45 mmHg 12:11 AM [facility] HCO3 Arterial 26 20 - 30 mmol/l 02/18/2021 12:11 AM [facility] BE Arterial 1.0 -2.0 - 2.0 mmol/L 02/18/2021 12:11 AM CDT [facility] Oxyhemoglobin Arterial 97.0 % 02/18/2021 12:11 AM [facility] Dexoyhemoglobin (HHB) % 0.7 % 02/18/2021 12:11 AM [facility] Methemoglobin 1.0 0.0 - 2.0 % 02/18/2021 12:11 AM [facility] Carboxyhemoglobin 1.3 0.0 - 2.0 % 2020 12:11 AM [facility] O2 Content Arterial 18.7 Interpret within clinical context mg/dL 02/18/2021 12:11 AM [facility] Hemoglobin by COOX 13.6 12.0 - 17.6 g/dL 02/18/2021 12:11 AM [facility] O2 Saturation Arterial 99 90 - 100 % 02/18/2021 12:11 AM [facility] FI O2 Arterial 60.0 % 02/18/2021 12:11 AM [facility] Blood, arterial ARTERIAL BLOOD SPECIMEN / Unknown Arterial Puncture / Unknown 02/18/2021 12:04 AM [facility] 02/18/2021 12:06 AM [facility] - 02/18/2021 12:11 AM [facility] Carboxyhemoglobin Normal Concentration: Non-smokers: 0-2%; Smokers: 0-9%; Toxic: >20% Fredy Felipe MD LAB - BLOOD GASES OR DERABLES Performing Organization Address City/State/[facility] Co de Phone Number [facility] [address] [place] [address], [facility] [phone] * PT-INR [facility] (02/18/2021 12:04 AM [facility]) PT 14.3 12.1 - 14.8 Seconds 02/18/2021 12:25 AM [facility] INR 1.1 See Comment 02/18/2021 12:25 AM [facility] Comment:The suggested therap eutic range for standard coumadin (warfarin) therapy is an INR of 2.0-3.0. For high-risk patients (Mechanical Mitral Valve Prosthesis, etc.), the suggested prophylactic therapeutic range is an INR of 2.5-3.5. Blood BLOOD SPECIMEN / Unknown Venipuncture / Unknown 02/18/2021 12:04 AM CDT 02/18/2021 12:07 AM CDT Fredy Felipe MD LAB - COAGULATION OR DERABLES Performing Organization Address City/[facility]/ZIP Co de Phone Number [address] [address], [facility] [phone] * PHOSPHORUS BLOOD (02/18/2021 12:04 AM CDT) Phosphorus 3.4 2.8 - 5.1 mg/dL 02/18/2021 12:32 AM CDT [facility] Blood BLOOD SPECIMEN / Unknown Venipuncture / Unknown 02/18/2021 12:04 AM CDT 02/18/2021 12:08 AM CDT Fredy Felipe MD LAB - CHEMISTRY JOSE ENRIQUE VELA Performing Organization Address [facility] Co de Phone Number [address] [address], [facility] [phone] * MAGNESIUM BLOOD (02/18/2021 12:04 AM CDT) Magnesium 2.0 1.6 - 2.6 mg/dL 02/18/2021 12:32 AM CDT [facility] Blood BLOOD SPECIMEN / Unknown Venipuncture / Unknown 02/18/2021 12:04 AM CDT 02/18/2021 12:08 AM CDT Fredy Felipe MD LAB - CHEMISTRY JOSE ENRIQUE VELA Performing Organization Address [facility]/ZIP Co de Phone Number [address] [address], [facility] [phone] * (ABNORMAL) CALCIUM IONIZED WHOLE BLOOD (02/18/2021 12:04 AM CDT) Calcium Ionized 1.14 mmol/L 02/18/2021 12:12 AM CDT [facility] pH 7.41 7.35 - 7.45 pH 02/18/2021 12:12 AM CDT [facility] Ionized Calcium pH Adjusted 1.14(L) 1.19 - 1.34 mmol/L 02/18/2021 12:12 AM CDT [facility] Blood BLOOD SPECIMEN / Unknown Venipuncture / Unknown 02/18/2021 12:04 AM CDT 02/18/2021 12:06 AM CDT Fredy Felipe MD LAB - CHEMISTRY JOSE ENRIQUE VELA [facility] Organization Address City/State/ZIP Co de Phone Number [facility] [address] [place] [address], [facility] [phone] * XR CHEST 1VW PORTABLE (02/17/2021 10:00 PM CDT) Anatomical Region Laterality Modality Chest Radiographic Sera ging 02/18/2021 9:45 AM CDT Impressions 02/18/2021 9:58 AM CDT IMPRESSION: 1.Support devices as above. 2.No pneumothorax. 3.Middle and lower lung zone atelectasis. Report dictated by Simone Alexander MD, PhD (cath lab radiology technician). I, Dr. NENA CLEMENTE have personally reviewed [...] Report dictated by Simone Alexander MD, PhD (cath lab radiology technician). I, Dr. NENA CLEMENTE have personally reviewed [...] the diaphragm with the terminus outside the [id number]. *Bilateral apically oriented thoracostomy tubes are reidentified. [...] on 02/17/2021. Dictated by Rico Sawant DO (cath lab radiology technician). I, Dr. OSWALDO CLEMONS have personally reviewed [...] below the diaphragm with the terminusoutside the [id number]. *Bilateral apically oriented thoracostomy tubes are reidentified. [...] on 02/17/2021. Dictated by Rico Sawant DO (cath lab radiology technician). I, Dr. OSWALDO CLEMONS have personally reviewed and interpreted this examination/study. This report was electronically signed by OSWALDO CLEMONS on 02/17/2021 2:39PM . Fredy Felipe MD DIAGNOSTIC IMAGING O RDERABLES * (ABNORMAL) CBC W AUTO DIFFERENTIAL (02/17/2021 12:13 AM T) WBC 21.4(H) 3.5 - 10.5 10? 3 /uL 02/17/2021 12:26 AM [facility] RBC 4.87 4.30 - 5.70 10? 6 /uL 02/17/2021 12:26 AM [facility] Hemoglobin 13.5 12.0 - 17.6 g/dL 02/17/2021 12:26 AM [facility] Hematocrit 41.8 35.2 - 51.7 % 02/17/2021 12:26 AM [facility] MCV 85.8 80.7 - 98.3 fL 02/17/2021 12:26 AM [facility] MCH 27.7 26.7 - 34.0 pg 02/17/2021 12:26 AM [facility] MCHC 32.3 30.8 - 35.9 g/dL 02/17/2021 12:26 AM [facility] Platelet Count 300 150 - 400 10? 3 /uL 02/17/2021 12:26 AM [facility] RDW-SD 45.7 36.0 - 50.0 fL 02/17/2021 12:26 AM [facility] RDW-CV 14.5 11.2 - 14.8 % 02/17/2021 12:26 AM [facility] MPV 9.0(L) 9.4 - 12.9 fL 02/17/2021 12:26 AM [facility] nRBC Absolute 0.00 0 10? 3 /uL 02/17/2021 12:26 AM [facility] nRBC Auto 0.0 0 /100 WBC 02/17/2021 12:26 AM [facility] Neutrophils % 88.2(H) 35.0 - 70.0 % 02/17/2021 12:26 AM [facility] Lymphocytes % 5.1(L) 20.0 - 43.0 % 02/17/2021 12:26 AM [facility] Monocytes % 6.0 5.0 - 13.0 % 02/17/2021 12:26 AM [facility] Eosinophils % 0.0 0.0 - 6.0 % 02/17/2021 12:26 AM [facility] Basophil % 0.1 0.0 - 2.0 % 02/17/2021 12:26 AM [facility] Neutrophils Absolute 18.9(H) 1.6 - 7.0 10? 3 /uL 02/17/2021 12:26 AM [facility] Lymphocyte Absolute 1.1 1.1 - 3.9 10? 3 /uL 02/17/2021 12:26 AM [facility] Monocytes Absolute 1.28(H) 0.26 - 1.07 10? 3 /uL 02/17/2021 12:26 AM [facility] Eosinophils Absolute 0.00 0.00 - 0.47 10? 3 /uL 02/17/2021 12:26 AM [facility] Basophils Absolute 0.02 0.00 - 0.08 10? 3 /uL 02/17/2021 12:26 AM [facility] Immature Granulocytes % 0.6 0.0 - 1.0 % 02/17/2021 12:26 AM [facility] Immature Granulocytes Absolute 0.12 02/17/2021 12:26 AM CDT [facility] Blood BLOOD SPECIMEN / Unknown Venipuncture / Unknown 02/17/2021 12:13 AM CDT 02/17/2021 12:19 AM CDT Fredy Felipe MD LAB - HEMATOLOGY ORD ERABLES Performing Organization Address [facility] Co de Phone Number [address] [address], [facility] [phone] * (ABNORMAL) PT-INR [facility] (02/17/2021 12:13 AM CDT) PT 14.9(H) 12.1 - 14.8 Seconds 02/17/2021 12:33 AM CDT [facility] INR 1.2 See Comment 02/17/2021 12:33 AM T [facility] Comment:The suggested therap eutic range for standard coumadin (warfarin) therapy is an INR of 2.0-3.0. For high-risk patients (Mechanical Mitral Valve Prosthesis, etc.), the suggested prophylactic therapeutic range is an INR of 2.5-3.5. Blood BLOOD SPECIMEN / Unknown Venipuncture / Unknown 02/17/2021 12:13 AM CDT 02/17/2021 12:25 AM CDT Fredy Felipe MD LAB - COAGULATION OR DERABLES Performing Organization Address City/[facility] Co de Phone Number [address] [address], [facility] [phone] * (ABNORMAL) BASIC METABOLIC PANEL (CALCIUM TOTAL) (02/17/2021 12:12 AM CDT) BUN 9 7 - 26 mg/dL 02/17/2021 12:43 AM CDT [facility] Creatinine 0.82 0.71 - 1.16 mg/dL 02/17/2021 12:43 AM T [facility] Sodium 140 136 - 145 mmol/L 02/17/2021 12:43 AM T [facility] Potassium 4.1 3.5 - 4.5 mmol/L 02/17/2021 12:43 AM [facility] Chloride 105 98 - 107 mmol/L 02/17/2021 12:43 AM [facility] CO2 27 22 - 29 mmol/L 02/17/2021 12:43 AM [facility] Glucose 118(H) 70 - 115 mg/dL 02/17/2021 12:43 AM [facility] Calcium 9.1 8.4 - 10.2 mg/dL 02/17/2021 12:43 AM [facility] Anion Gap 12 8 - 18 02/17/2021 12:43 AM [facility] BUN/Creatinine Ratio 11 7 - 23 02/17/2021 12:43 AM [facility] Osmolality Calculated 290 270 - 300 mOsm/kg 02/17/2021 12:43 AM [facility] eGFR by CKD-EPI >90 >=90 mL/min/1.7 3 m2 02/17/2021 12:43 AM [facility] Blood BLOOD SPECIMEN / Unknown Venipuncture / Unknown 02/17/2021 12:12 AM CDT 02/17/2021 12:19 AM CDT Fredy Felipe MD LAB - CHEMISTRY JOSE ENRIQUE VELA [address] [address], [facility] [phone] * PHOSPHORUS BLOOD (02/17/2021 12:12 AM CDT) Phosphorus 3.5 2.8 - 5.1 mg/dL 02/17/2021 12:43 AM T [facility] Blood BLOOD SPECIMEN / Unknown Venipuncture / Unknown 02/17/2021 12:12 AM CDT 02/17/2021 12:19 AM CDT Fredy Felipe MD LAB - CHEMISTRY JOSE ENRIQUE VELA [address] [address], [place] [phone] * MAGNESIUM BLOOD (02/17/2021 12:12 AM CDT) Magnesium 1.9 1.6 - 2.6 mg/dL 02/17/2021 12:43 AM CDT [facility] Blood BLOOD SPECIMEN / Unknown Venipuncture / Unknown 02/17/2021 12:12 AM CDT 02/17/2021 12:19 AM CDT Fredy Felipe MD LAB - CHEMISTRY JOSE ENRIQUE VELA [address] [address], [place] [phone] * CALCIUM IONIZED WHOLE BLOOD (02/17/2021 12:12 AM CDT) Calcium Ionized 1.18 mmol/L 02/17/2021 12:21 AM CDT [facility] pH 7.43 7.35 - 7.45 pH 02/17/2021 12:21 AM CDT [facility] Ionized Calcium pH Adjusted 1.19 1.19 - 1.34 mmol/L 02/17/2021 12:21 AM CDT [facility] Blood BLOOD SPECIMEN / Unknown Venipuncture / Unknown 02/17/2021 12:12 AM CDT 02/17/2021 12:18 AM CDT Fredy Felipe MD LAB - CHEMISTRY JOSE ENRIQUE VELA [address] [address], [place] [phone] * (ABNORMAL) BLOOD GASES ART + COOX PANEL (02/17/2021 12:12 AM CDT) pH Arterial 7.46(H) 7.35 - 7.45 pH 02/17/2021 12:22 AM CDT [facility] pO2 Arterial 108(H) 80 - 100 mmHg 02/17/2021 12:22 AM CDT [facility] pCO2 Arterial 40 35 - 45 mmHg 12:22 AM [facility] HCO3 Arterial 28 20 - 30 mmol/l 02/17/2021 12:22 AM [facility] BE Arterial 4.2(H) -2.0 - 2.0 mmol/L 02/17/2021 12:22 AM [facility] Oxyhemoglobin Arterial 96.5 % 02/17/2021 12:22 AM [facility] Dexoyhemoglobin (HHB) % 1.0 % 02/17/2021 12:22 AM [facility] Methemoglobin 0.9 0.0 - 2.0 % 02/17/2021 12:22 AM [facility] Carboxyhemoglobin 1.6 0.0 - 2.0 % 2020 12:22 AM [facility] O2 Content Arterial 19.1 Interpret within clinical context mg/dL 02/17/2021 12:22 AM [facility] Hemoglobin by COOX 14.0 12.0 - 17.6 g/dL 02/17/2021 12:22 AM [facility] O2 Saturation Arterial 99 90 - 100 % 02/17/2021 12:22 AM [facility] FI O2 Arterial 35.0 % 02/17/2021 12:22 AM [facility] Blood, arterial ARTERIAL BLOOD SPECIMEN / Unknown Arterial Puncture / Unknown 02/17/2021 12:12 AM CDT 02/17/2021 12:18 AM [facility] - 02/17/2021 12:22 AM [facility] Carboxyhemoglobin Normal Concentration: Non-smokers: 0-2%; Smokers: 0-9%; Toxic: >20% Fredy Felipe MD LAB - BLOOD GASES OR DERABLES [facility] [address] [place] [address], [facility] [phone] * CT HEAD WO CONTRAST (02/16/2021 3:00 [...] mucosal disease. Dictated by Uyen Garcia MD (cath lab radiology technician). I, Dr. JUNE MADRID have personally reviewed [...] mucosal disease. Dictated by Uyen Garcia MD (cath lab radiology technician). Dr. JUNE Yao have personally reviewed and [...] courses to the stomach out of the [id number]. Chest wall and lower neck subcutaneous emphysema is decreased from prior study. Pneumomediastinum is decreased from prior study. Mild left basilar atelectasis is unchanged. Pleural effusion may contribute to opacity. There is no pneumothorax. The cardiomediastinal silhouette is partially obscured. Dictated by Alverto Ames MD (cath lab radiology technician). Dr. EULA Yao have personally reviewed and [...] courses to the stomach out of the [id number]. Chest wall and lower neck subcutaneous emphysema is decreased from prior study. Pneumomediastinum is decreased from prior study. Mild left basilar atelectasis is unchanged. Pleural effusion may contribute to opacity. There is no pneumothorax. The cardiomediastinal silhouette is partially obscured. Dictated by Alverto Ames MD (cath lab radiology technician). I, Dr. EULA GONZALEZ have personally reviewed and interpreted this examination/study. This report was electronically signed by EULA GONZALEZ on 02/16/2021 12:26 PM . Fredy Felipe MD DIAGNOSTIC IMAGING O RDERABLES * (ABNORMAL) DIFFERENTIAL MANUAL (02/15/2021 10:34 PM CDT) WBC (corrected for NRBC) 24.3 10? 3 /uL 02/15/2021 11:58 PM CDT [facility] Total Cell Count 100 02/16/20 21 11:58 PM T [facility] Neutrophils Absolute Manual 22.36(H) 1.60 - 7.00 10? 3 /uL 02/15/2021 11:[address] [facility] Comment:(BANDS+SEGS) x WBC = NEUT # (ANC) Lymphocyte Absolute Manual 0.49(L) 1.10 - 3.90 10? 3 /uL 02/15/2021 11:58 PM CDT [facility] Monocytes Absolute Manual 1.46(H) 0.26 - 1.07 10? 3 /uL 02/15/2021 11:58 PM [facility] Band % Manual 4 0 - 10 % 02/15/2021 11:58 PM [facility] Neutrophil % Manual 88(H) 35 - 70 % 02/15/2021 11:58 PM [facility] Lymphocyte % Manual 2(L) 20 - 43 % 02/15/2021 11:58 PM [facility] Monocytes % Manual 6 5 - 13 % 02/15/2021 11:58 PM [facility] Platelet Estimate Adequate Adequate 02/15/2021 11:58 PM [facility] Anisocytosis 1+(A) None 02/15/2021 11:58 PM [facility] Blood BLOOD SPECIMEN / Unknown Venipuncture / Unknown 02/15/2021 10:34 PM CDT 02/15/2021 10:50 PM CDT Fredy Felipe MD LAB - HEMATOLOGY ORD ERABLES Performing Organization Address City/[facility]/ZIP Co de Phone Number [facility] [address] [place] [address], [facility] [phone] * PT-INR [facility] (02/15/2021 10:34 PM CDT) PT 14.6 12.1 - 14.8 Seconds 02/15/2021 11:05 PM [facility] INR 1.2 See Comment 02/15/2021 11:05 PM [facility] Comment:The suggested therap eutic range for standard coumadin (warfarin) therapy is an INR of 2.0-3.0. For high-risk patients (Mechanical Mitral Valve Prosthesis, etc.), the suggested prophylactic therapeutic range is an INR of 2.5-3.5. Blood BLOOD SPECIMEN / Unknown Venipuncture / Unknown 02/15/2021 10:34 PM CDT 02/15/2021 10:45 PM CDT Fredy Felipe MD LAB - COAGULATION OR DERABLES [facility] [address] [place] [address], [facility] [phone] * PHOSPHORUS BLOOD (02/15/2021 10:34 PM CDT) Phosphorus 4.0 2.8 - 5.1 mg/dL 02/15/2021 11:17 PM CDT [facility] Blood BLOOD SPECIMEN / Unknown Venipuncture / Unknown 02/15/2021 10:34 PM CDT 02/15/2021 10:50 PM CDT Fredy Felipe MD LAB - CHEMISTRY ORDNolan VELA [address] [address], [facility] [phone] * MAGNESIUM BLOOD (02/15/2021 10:34 PM CDT) Magnesium 1.8 1.6 - 2.6 mg/dL 02/15/2021 11:17 PM CDT [facility] Blood BLOOD SPECIMEN / Unknown Venipuncture / Unknown 02/15/2021 10:34 PM CDT 02/15/2021 10:50 PM CDT Fredy Felipe MD LAB - CHEMISTRY ORDNolan VELA [address] [address], [facility] [phone] * (ABNORMAL) BASIC METABOLIC PANEL (CALCIUM TOTAL) (02/15/2021 10:34 PM CDT) BUN 9 7 - 26 mg/dL 02/15/2021 11:17 PM CDT [facility] Creatinine 0.90 0.71 - 1.16 mg/dL 02/15/2021 11:17 PM CDT [facility] Sodium 144 136 - 145 mmol/L 02/15/2021 11:17 PM CDT [facility] Potassium 4.0 3.5 - 4.5 mmol/L 02/15/2021 11:17 PM CDT [facility] Chloride 106 98 - 107 mmol/L 02/15/2021 11:17 PM [facility] CO2 26 22 - 29 mmol/L 02/15/2021 11:17 PM [facility] Glucose 118(H) 70 - 115 mg/dL 02/15/2021 11:17 PM [facility] Calcium 9.1 8.4 - 10.2 mg/dL 02/15/2021 11:17 PM [facility] Anion Gap 16 8 - 18 02/15/2021 11:17 PM [facility] BUN/Creatinine Ratio 10 7 - 23 02/15/2021 11:17 PM [facility] Osmolality Calculated 298 270 - 300 mOsm/kg 02/15/2021 11:17 PM [facility] eGFR by CKD-EPI >90 >=90 mL/min/1.7 3 m2 02/15/2021 11:17 PM [facility] Blood BLOOD SPECIMEN / Unknown Venipuncture / Unknown 02/15/2021 10:34 PM CDT 02/15/2021 10:50 PM T Fredy Felipe MD LAB - CHEMISTRY JOSE ENRIQUE VELA [facility] Organization Address City/State/ZIP Co de Phone Number [facility] [address] [place] [address], [facility] [phone] * (ABNORMAL) BLOOD GASES ART + COOX PANEL (02/15/2021 10:34 PM CDT) pH Arterial 7.48(H) 7.35 - 7.45 pH 02/15/2021 10:50 PM [facility] pO2 Arterial 71(L) 80 - 100 mmHg 02/15/2021 10:50 PM [facility] pCO2 Arterial 38 35 - 45 mmHg 10:50 PM [facility] HCO3 Arterial 28 20 - 30 mmol/l 02/15/2021 10:50 PM [facility] BE Arterial 4.6(H) -2.0 - 2.0 mmol/L 02/15/2021 10:50 PM [facility] Oxyhemoglobin Arterial 93.4 % 02/15/2021 10:50 PM T [facility] Dexoyhemoglobin (HHB) % 3.9 % 02/15/2021 10:50 PM [facility] Methemoglobin <0.8 0.0 - 2.0 % 02/15/2021 10:50 PM [facility] Carboxyhemoglobin 2.0 0.0 - 2.0 % 2020 10:50 PM [facility] O2 Content Arterial 18.8 Interpret within clinical context mg/dL 02/15/2021 10:50 PM [facility] Hemoglobin by COOX 14.3 12.0 - 17.6 g/dL 02/15/2021 10:50 PM [facility] O2 Saturation Arterial 96 90 - 100 % 02/15/2021 10:50 PM [facility] FI O2 Arterial 40.0 % 02/15/2021 10:50 PM [facility] Blood, arterial ARTERIAL BLOOD SPECIMEN / Unknown Arterial Puncture / Unknown 02/15/2021 10:34 PM CDT 02/15/2021 10:45 PM CDT [facility] - 02/15/2021 10:50 PM CDT Carboxyhemoglobin Normal Concentration: Non-smokers: 0-2%; Smokers: 0-9%; Toxic: >20% Fredy Felipe MD LAB - BLOOD GASES OR DERABLES [facility] [address] [place] [address], [facility] [phone] * (ABNORMAL) CBC W AUTO DIFFERENTIAL (02/15/2021 10:34 PM CDT) WBC 24.3(H) 3.5 - 10.5 10? 3 /uL 02/15/2021 10:57 PM [facility] RBC 4.98 4.30 - 5.70 10? 6 /uL 02/15/2021 10:57 PM [facility] Hemoglobin 13.8 12.0 - 17.6 g/dL 02/15/2021 10:57 PM [facility] Hematocrit 42.1 35.2 - 51.7 % 02/15/2021 10:57 PM [facility] MCV 84.5 80.7 - 98.3 fL 02/15/2021 10:57 PM [facility] MCH 27.7 26.7 - 34.0 pg 02/15/2021 10:57 PM [facility] MCHC 32.8 30.8 - 35.9 g/dL 02/15/2021 10:57 PM [facility] Platelet Count 315 150 - 400 10? 3 /uL 02/15/2021 10:57 PM [facility] RDW-SD 44.1 36.0 - 50.0 fL 02/15/2021 10:57 PM [facility] RDW-CV 14.4 11.2 - 14.8 % 02/15/2021 10:57 PM [facility] MPV 9.0(L) 9.4 - 12.9 fL 02/15/2021 10:57 PM [facility] nRBC Absolute 0.00 0 10? 3 /uL 02/15/2021 10:57 PM [facility] nRBC Auto 0.0 0 /100 WBC 02/15/2021 10:57 PM [facility] Blood BLOOD SPECIMEN / Unknown Venipuncture / Unknown 02/15/2021 10:34 PM CDT 02/15/2021 10:50 PM CDT Fredy Felipe MD LAB - HEMATOLOGY ORD ERABLES Performing Organization Address City/State/[facility] Co de Phone Number [facility] [address] [place] [address], [facility] [phone] * (ABNORMAL) CALCIUM IONIZED WHOLE BLOOD (02/15/2021 10:34 PM CDT) Calcium Ionized 1.17 mmol/L 02/15/2021 10:53 PM [facility] pH 7.50(H) 7.35 - 7.45 pH 02/15/2021 10:53 PM [facility] Ionized Calcium pH Adjusted 1.22 1.19 - 1.34 mmol/L 02/15/2021 10:53 PM [facility] Blood BLOOD SPECIMEN / Unknown Venipuncture / Unknown 02/15/2021 10:34 PM CDT 02/15/2021 10:46 PM CDT Fredy Felipe MD LAB - CHEMISTRY JOSE ENRIQUE Pena Organization Address City/State/ZIP Co de Phone Number [facility] [address] [place] [address], [facility] [phone] * (ABNORMAL) BLOOD GASES ART + COOX PANEL (02/15/2021 10:41 AM CDT) pH Arterial 7.46(H) 7.35 - 7.45 pH 02/15/2021 10:47 AM [facility] pO2 Arterial 99 80 - 100 mmHg 02/15/2021 10:47 AM [facility] pCO2 Arterial 37 35 - 45 mmHg 10:47 AM [facility] HCO3 Arterial 26 20 - 30 mmol/l 02/15/2021 10:47 AM [facility] BE Arterial 2.6(H) -2.0 - 2.0 mmol/L 02/15/2021 10:47 AM [facility] Oxyhemoglobin Arterial 96.5 % 02/15/2021 10:47 AM [facility] Dexoyhemoglobin (HHB) % 1.2 % 02/15/2021 10:47 AM [facility] Methemoglobin 0.9 0.0 - 2.0 % 02/15/2021 10:47 AM [facility] Carboxyhemoglobin 1.4 0.0 - 2.0 % 2020 10:47 AM [facility] O2 Content Arterial 21.4 Interpret within clinical context mg/dL 02/15/2021 10:47 AM [facility] Hemoglobin by COOX 15.7 12.0 - 17.6 g/dL 02/15/2021 10:47 AM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 19(H) 8 - 18 mmol/L 02/15/2021 3:59 AM [facility] Glucose WB 111(H) 70 - 105 mg/dL 02/15/2021 3:59 AM CDT [facility] Lactic Acid Whole Blood 4.7(HH) <=2.0 mmol/L 02/15/2021 3:59 AM CDT [facility] Blood, arterial ARTERIAL BLOOD SPECIMEN / Unknown Arterial Puncture / Unknown 02/15/2021 3:48 AM CDT 02/15/2021 3:50 AM CDT Narrative [facility] - 02/15/2021 3:59 AM CDT Carboxyhemoglobin Normal Concentration: Non-smokers: 0-2%; Smokers: 0-9%; Toxic: >20% Edith Calle MD LAB - BLOOD GASES OR DERABLES Performing Organization Address City/State/[facility] Co de Phone Number [facility] [address] [place] [address], [facility] [phone] * XR CHEST 1VW PORTABLE (02/15/2021 3:10 AM CDT) Anatomical Region Laterality Modality Chest Radiographic Sera ging 02/15/2021 3:14 AM CDT Impressions 02/15/2021 5:51 PM CDT FINDINGS/IMPRESSION: There are low bilateral lung volumes associated bronchovascular crowding. There is no focal consolidation, pleural effusion, or pneumothorax. The cardiomediastinal silhouette is normal. The visible bony thorax is intact. Dictated by Phan Brothers MD (cath lab radiology technician). I, Dr. EULA GONZALEZ have personally reviewed [...] thorax isintact. Dictated by Phan Brothers MD (cath lab radiology technician). I, Dr. EULA GONZALEZ have personally reviewed and interpreted this examination/study. This report was electronically signed by EULA GONZALEZ on 02/15/2021 5:51 PM . Fredy Felipe MD DIAGNOSTIC IMAGING O RDERABLES * PTT [facility] (02/15/2021 3:08 AM CDT) Pathologist [facility] APTT 23.5 23.0 - 38.4 Seconds 02/15/2021 3:33 AM CDT [facility] Comment:Suggested therapeuti c range for full dose I.V. unfractionated heparin therapy for venous thromboembolism is 71 to 109 seconds. Blood BLOOD SPECIMEN / Unknown Venipuncture / Unknown 02/15/2021 3:08 AM CDT 02/15/2021 3:14 AM CDT Fredy Felipe MD LAB - COAGULATION OR DERABLES [facility] [address] [place] [id number], [facility] [phone] * TYPE + SCREEN PANEL (02/15/2021 3:08 AM CDT) [facility] [place] Antibody Screen NEG 4:06 AM CDT [facility] BLOOD [facility]ANK LAB ABO Rh O POS 02/15/2021 4:06 AM CDT [facility] B[facility] LAB Blood Bank BLOOD SPECIMEN / Unknown Venipuncture / Unknown 02/15/2021 3:08 AM CDT 02/15/2021 3:17 AM CDT Fredy Felipe MD LAB - BLOOD BANK ORD ERABLES [facility] LAB [address] [place] [id number], [facility] [phone] * (ABNORMAL) CBC W AUTO DIFFERENTIAL (02/15/2021 3:08 AM CDT) [facility] [place] WBC 10.5 3.5 - 10.5 10? 3 /uL 02/15/2021 3:33 AM [facility] Comment:All CBC parameters h ave been checked. RBC 5.56 4.30 - 5.70 10? 6 /uL 02/15/2021 3:33 AM [facility] Hemoglobin 15.4 12.0 - 17.6 g/dL 02/15/2021 3:33 AM [facility] Hematocrit 47.3 35.2 - 51.7 % 02/15/2021 3:33 AM [facility] MCV 85.1 80.7 - 98.3 fL 02/15/2021 3:33 AM [facility] MCH 27.7 26.7 - 34.0 pg 02/15/2021 3:33 AM [facility] MCHC 32.6 30.8 - 35.9 g/dL 02/15/2021 3:33 AM [facility] Platelet Count 368 150 - 400 10? 3 /uL 02/15/2021 3:33 AM [facility] Comment:Checked by periphera l smear. RDW-SD 43.5 36.0 - 50.0 fL 02/15/2021 3:33 AM [facility] RDW-CV 14.0 11.2 - 14.8 % 02/15/2021 3:33 AM [facility] MPV 8.9(L) 9.4 - 12.9 fL 02/15/2021 3:33 AM [facility] nRBC Absolute 0.00 0 10? 3 /uL 02/15/2021 3:33 AM [facility] nRBC Auto 0.0 0 /100 WBC 02/15/2021 3:33 AM [facility] Neutrophils % 77.1(H) 35.0 - 70.0 % 02/15/2021 3:33 AM [facility] Lymphocytes % 13.1(L) 20.0 - 43.0 % 02/15/2021 3:33 AM [facility] Monocytes % 8.4 5.0 - 13.0 % 02/15/2021 3:33 AM [facility] Eosinophils % 0.4 0.0 - 6.0 % 02/15/2021 3:33 AM CDT [facility] Basophil % 0.4 0.0 - 2.0 % 02/15/2021 3:33 AM T [facility] Neutrophils Absolute 8.1(H) 1.6 - 7.0 10? 3 /uL 02/15/2021 3:33 AM T [facility] Lymphocyte Absolute 1.4 1.1 - 3.9 10? 3 /uL 02/15/2021 3:33 AM [facility] Monocytes Absolute 0.88 0.26 - 1.07 10? 3 /uL 02/15/2021 3:33 AM [facility] Eosinophils Absolute 0.04 0.00 - 0.47 10? 3 /uL 02/15/2021 3:33 AM [facility] Basophils Absolute 0.04 0.00 - 0.08 10? 3 /uL 02/15/2021 3:33 AM [facility] Immature Granulocytes % 0.6 0.0 - 1.0 % 02/15/2021 3:33 AM T [facility] Immature Granulocytes Absolute 0.06 02/15/2021 3:33 AM [facility] Immature Platelet Fraction 0.9(L) 1.1 - 6.2 % 02/15/2021 3:33 AM [facility] Blood BLOOD SPECIMEN / Unknown Venipuncture / Unknown 02/15/2021 3:08 AM CDT 02/15/2021 3:16 AM CDT Fredy Felipe MD LAB - HEMATOLOGY ORD ERABLES [facility] [address] [place] [address], [facility] [phone] * (ABNORMAL) BASIC METABOLIC PANEL (CALCIUM TOTAL) (02/15/2021 3:08 AM CDT) BUN 8 7 - 26 mg/dL 02/15/2021 3:47 AM T [facility] Creatinine 1.12 0.71 - 1.16 mg/dL 02/15/2021 3:47 AM [facility] Sodium 141 136 - 145 mmol/L 02/15/2021 3:47 AM [facility] Potassium 4.7(H) 3.5 - 4.5 mmol/L 02/15/2021 3:47 AM [facility] Comment:Hemolysis detected i n this specimen. Hemolysis is known to cause elevations in this analyte. Caution should be exercised in the interpretation of this result. Recommend repeat testing if clinically indicated. Chloride 107 98 - 107 mmol/L 02/15/2021 3:47 AM [facility] CO2 15(L) 22 - 29 mmol/L 02/15/2021 3:47 AM [facility] Glucose 101 70 - 115 mg/dL 02/15/2021 3:47 AM [facility] Calcium 8.9 8.4 - 10.2 mg/dL 02/15/2021 3:47 AM [facility] Anion Gap 24(H) 8 - 18 02/15/2021 3:47 AM [facility] BUN/Creatinine Ratio 7 7 - 23 02/15/2021 3:47 AM [facility] Osmolality Calculated 290 270 - 300 mOsm/kg 02/15/2021 3:47 AM [facility] eGFR by CKD-EPI 46(L) >=90 mL/min/1. 73 m2 02/15/2021 3:47 AM [facility] Blood BLOOD SPECIMEN / Unknown Venipuncture / Unknown 02/15/2021 3:08 AM CDT 02/15/2021 3:16 AM T Fredy Felipe MD LAB - CHEMISTRY JOSE ENRIQUE VELA [facility] Organization Address City/State/ZIP Co de Phone Number [facility] [address] [place] [phone], [facility] [phone] * (ABNORMAL) ALCOHOL ETHYL BLOOD (02/15/2021 3:08 AM CDT) Ethanol (mg/dL) 65(H) <10 mg/dL 3:47 AM T [facility] Ethanol Calculated (g/dL) 0.065(H) <0.010 g/dL 02/15/2021 3:47 AM CDT [facility] Blood BLOOD SPECIMEN / Unknown Venipuncture / Unknown 02/15/2021 3:08 AM CDT 02/15/2021 3:16 AM CDT Narrative [facility] - 02/15/2021 3:47 AM CDT Ethanol Interp <10: None Detected. Depression of HARDWARE ENGINEER: >100 mg/dl Potentially Critical: >250 mg/dl Potentially [...] Address City/State/ZIP Co de Phone Number [facility] [address] [place] [address], [facility] [phone] documented in this encounter Visit Diagnoses Diagnosis [...] Cardiac arrest Morbid obesity (HCC) Morbid obesity Open wound of abdominal wall, sequela documented in this encounter Administered Medications Inactive [...] dose on Wed03/08/21 at 2100, Until Discontinued $ Given 03/12/2021 [...] mL of normal saline every 8 hours. 0600 ($ Given - Provider: Fide Rivero RN)1337 ($ Given - Provider: Willie Coreas RN)2123 ($ Given - Provider: Fide Rivero RN) 0602 ($ Given - Provider: Fide Rivero RN)1329 ($ Given - Provider: Alix Mijares, AIDA)2154 ($ Given - Provider: Dino Castillo, RN) [...] Comments)1737 ($ Given - Provider: Jose Oliva SWAGING MACHINE ADJUSTER)2359 ($ Given - Provider: Jaime Baker SWAGING MACHINE ADJUSTER) 0528 ($ Given - Provider: Jaime Baker RCP)1159 ($ Given - Provider: Natalya Quinteros SWAGING MACHINE ADJUSTER)1700 ($ Given - Provider: Natalya Quinteros SWAGING MACHINE ADJUSTER)2344 (Canceled Entry - Provider: Jaime Baker RCP) 0551 ($ Given - Provider: Jaime Baker RCP)1136 ($ Given - Provider: Idalia Boles SWAGING MACHINE ADJUSTER)1702 ($ Given - Provider: Idalia Boles SWAGING MACHINE ADJUSTER) albuterol-ipratropium (Duo-Neb) nebulizer solution 3 mL 3 mL, Inhalation, EVERY 6 HOURS, First dose on 03/08/21 at 1800, Until Discontinued 0026 ($ Given - Provider: Kaylee Colunga RCP)0540 ($ Given - Provider: Kaylee Colunga RCP)1229 ($ Given - Provider: Jose Oliva SWAGING MACHINE ADJUSTER)1736 ($ Given - Provider: Jose Oliva RCP)2359 [...] Rivero RN)1127 ($ Given - Provider: Alix Mijares, AIDA)1714 ($ Given - Provider: Alix iMjares RN)2300 ($ Given - Provider: Dino Castillo, [...] Willie Coreas, AIDA)1751 (Stopped - Provider: Willie Coeras, AIDA)2145 ($ New Bag/Syringe - Provider: Fide Rivero [...] ($ New Bag/Syringe - Provider: Dino Castillo, IADA)0950 (Stopped - Provider: Willie Coreas, AIDA)1511 ($ New Bag/Syringe - Provider: Asif Alexis [...] documented as of this encounter Care Teams Relations Director Relationship Specialty Start Date End Date Pepe Martel MD [address] [facility] [address] [place] [address] PCP - General 08/14/16 documented as of this encounter
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
--- OUTSIDE RECORDS SUMMARY | 2024-05-23 03:28 | XMS_ITS | Encounter Summary ---
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 below the diaphragm, terminus outside the kpojq-ku-aixw. *There is a left subclavian approach central [...] is stable. Dictated by Rico Sawant DO (executive assistant to president). Dr. AFRICA Yao M.D. have personally reviewed [...] below the diaphragm, the segments of the ayoko-zb-jnnc. *There is a left subclavian approach central [...] is stable. Dictated by Phan Brothers MD (executive assistant to president). Dr. SUNITA Yao have personally reviewed and [...] is normal. Dictated by Rico Sawant DO (executive assistant to president). I, Dr. NAOMY LAZO MD, FRCR have [...] Dr. Carrion Dictated by Bety Rose MD (executive assistant to president). This report was approved by Bety [...] is normal. Dictated by Rico Sawant DO (executive assistant to president). I, Dr. OSWALDO CLEMONS have personally reviewed [...] Report dictated by Simone Alexander MD, PhD (executive assistant to president). I, Dr. CHOCO JIN MD have personally [...] Report dictated by Simone Alexander MD, PhD (executive assistant to president). Dr. NENA Yao have personally reviewed and [...] the diaphragm with the terminus outside the xqlcu-qi-yuvc. *Bilateral apically oriented thoracostomy tubes are reidentified. [...] on 02/17/2021. Dictated by Rico Sawant DO (executive assistant to president). I, Dr. OSWALDO CLEMONS have personally reviewed [...] mucosal disease. Dictated by Uyen Garcia MD (executive assistant to president). IDr. JUNE have personally reviewed and interpreted [...] courses to the stomach out of the gcnmm-kz-ptkk. Chest wall and lower neck subcutaneous emphysema is decreased from prior study. Pneumomediastinum is decreased from prior study. Mild left basilar atelectasis is unchanged. Pleural effusion may contribute to opacity. There is no pneumothorax. The cardiomediastinal silhouette is partially obscured. Dictated by Alverto Ames MD (executive assistant to president). Dr. EULA Yao have personally reviewed and [...] findings above. Dictated by Rico Sawant DO (executive assistant to president). Dr. EULA Yao have personally reviewed and [...] the diaphragm, with its tip outside the nuymm-sw-jnyo. Linear airspace opacities are seen in the right upper and mid lung. Findings may be related to compressive atelectasis or pulmonary contusion in the post traumatic setting. There are linear bibasilar opacities, likely representing atelectasis or aspiration in the posttraumatic/post intubated setting. There is no left pleural effusion. No pneumothorax. The cardiomediastinal silhouette is normal. Dictated by Phan Brothers MD (executive assistant to president). Dr. EULA Yao have personally reviewed and [...] 4:32 AM. Dictated by Arlen Abbott MD (executive assistant to president). Dr. EULA Yao have personally reviewed and [...] is intact. Dictated by Phan Brothers MD (executive assistant to president). Dr. EULA Yao have personally reviewed and [...] Fraga MD - 02/24/2021 7:07 AM CDT [facility] Trauma ICU Progress Note Admit: [...] 1, , Last Rate: 42.13 mL/hr at 02/23/212220 PRN Medications: 0.9% NaCl, 1-10 mL, PRN [...] DAY 1 Is&Os: 02/23 701 - 02/24 700 In: 2406.4 [I.V.:1924.8] Out: 3095 [Urine:1175; Drains:1920] Date 02/23/21699 - 02/24/2165802/24/21699 - 02/25/21 0659 Shift 9422-2004 1000-3029 24 Hour Total 8554-0884 1245-0307 24 Hour Total INTAKE I.V.(mL/kg/hr) 4055.7(2.1) 4055.7(1) [...] 403* 374 BMP Recent Labs Component Name 02/24/212702/23/212002/21/212311 POTASSIUM 4.2 4.2 4.3 CO2 25 30* 22 BUN 6* 10 15 CREATININE 0.65* 0.84 1.13 GLUCOSE 131* 145* 126* CALCIUM 8.4 8.4 8.5 PHOS 3.9 3.9 3.5 LFTs Recent Labs Component Name 02/15/21 1040 AST 96* ALT 78* ALKPHOS 97 Coags Recent Labs Component Name 02/24/212702/23/212002/21/212 02/15/21 2234 02/15/21 0642 02/15/21 0308 PT [...] courses to the stomach out of the vysqd-qp-pklx. A right thoracostomy tube is unchanged in position. Small bilateral pleural effusions are suggested. Bibasilar airspace opacities may represent atelectasis and/or airspace disease. There is no pneumothorax. The cardiomediastinal silhouette is partially obscured. Dictated by Alverto Ames MD (executive assistant to president). Dr. NENA Yao have personally reviewed and [...] fracture identified. Dictated by Rico Sawant D.O. (Solar System Designer) Dr. CHOCO Yao MD have personally reviewed [...] are normal. Dictated by Rico Sawant DO (executive assistant to president). IDr. AFRICA M.D. have personally reviewed and [...] coursing below the diaphragm, terminus outside the irztu-hv-womn. *There is a left subclavian approach central [...] is stable. Dictated by Rico Sawant DO (executive assistant to president). Dr. AFRICA Yao M.D. have personally reviewed [...] below the diaphragm, the segments of the kprmk-gw-vpje. *There is a left subclavian approach central [...] is stable. Dictated by Phan Brothers MD (executive assistant to president). Dr. SUNITA Yao have personally reviewed and [...] is normal. Dictated by Rico Sawant DO (executive assistant to president). I, Dr. NAOMY LAZO MD, [facility] have personally reviewed and interpreted this examination/study. This report was electronically signed by NAOMY LAZO MD, [facility] on 02/20/2021 2:18 PM . MRI BRAIN [...] Dr. Carrion Dictated by Bety Rose MD (executive assistant to president). This report was approved by Bety Rose on 02/20/2021 11:[address] JASWINDER Yao have personally [...] is normal. Dictated by Rico Sawant DO (executive assistant to president). Dr. OSWALDO Yao have personally reviewed and [...] Report dictated by Simone Alexander MD, PhD (executive assistant to president). I, Dr. CHOCO JIN MD have personally [...] Report dictated by Simone Alexander MD, PhD (executive assistant to president). Dr. NENA Yao have personally reviewed and [...] the diaphragm with the terminus outside the buiqu-hx-hbas. *Bilateral apically oriented thoracostomy tubes are reidentified. [...] on 02/17/2021. Dictated by Rico Sawant DO (executive assistant to president). I, Dr. OSWALDO CLEMONS have personally reviewed [...] mucosal disease. Dictated by Uyen Garcia MD (executive assistant to president). I, Dr. JUNE MADRID have personally reviewed [...] courses to the stomach out of the gzqja-wd-syfq. Chest wall and lower neck subcutaneous emphysema is decreased from prior study. Pneumomediastinum is decreased from prior study. Mild left basilar atelectasis is unchanged. Pleural effusion may contribute to opacity. There is no pneumothorax. The cardiomediastinal silhouette is partially obscured. Dictated by Alverto Ames MD (executive assistant to president). IDr. EULA have personally reviewed and interpreted [...] findings above. Dictated by Rico Sawant DO (executive assistant to president). Dr. EULA Yao have personally reviewed and [...] the diaphragm, with its tip outside the qvlww-gu-bezo. Linear airspace opacities are seen in the right upper and mid lung. Findings may be related to compressive atelectasis or pulmonary contusion in the post traumatic setting. There are linear bibasilar opacities, likely representing atelectasis or aspiration in the posttraumatic/post intubated setting. There is no left pleural effusion. No pneumothorax. The cardiomediastinal silhouette is normal. Dictated by Phan Brothers MD (executive assistant to president). Dr. EULA Yao have personally reviewed and [...] 4:32 AM. Dictated by Arlen Abbott MD (executive assistant to president). Dr. EULA Yao have personally reviewed and [...] is intact. Dictated by Phan Brothers MD (executive assistant to president). I, Dr. EULA GONZALEZ have personally reviewed [...] Fraga MD - 02/23/2021 6:23 AM CDT [facility] Trauma ICU Progress Note Admit: [...] 0-300 mcg/hr, Last Rate: 300 mcg/hr (02/23/21 05) propofol, 0-80 mcg/kg/min, Last Rate: 35 mcg/kg/min [...] 02/23/21 0659 02/23/21699 - 02/24/21 0659 Shift 1043-5336 9751-1590 24 Hour Total 8051-6048 7858-9574 24 Hour Total INTAKE I.V.(mL/kg/hr) 1328.1(0.7) 1328.1 Tube 30 30 Shift Total(mL/kg) 1328.1(8.3) 30(0.2) 1358.1(8.5) OUTPUT Urine(mL/kg/hr) 860(0.4) 370 1230 Drains 790 232 8205 Shift Total(mL/kg) 1785(11.1) 1195(7.5) 2980(18.6) NET -456.9 [...] CBC Recent Labs Component Name 02/23/21 0021 02/21/21 2312 02/20/21 2326 WBC 13.5* 14.5* 14.6* HGB [...] This report was electronically signed by NENA CELMENTE on 02/22/2021 3:30 PM . XR FOREARM RIGHT 2VW Final Result EXAMINATION: XR FOREARM RIGHT 2VW HISTORY: T14.90XA: Trauma COMPARISON: None. FINDINGS: The radius and ulna are intact without evidence of acute fracture. IVs are visible at the forearm and wrist. No soft tissue swelling is present. IMPRESSION: No acute radial or ulnar fracture identified. Dictated by Rico Sawant D.O. (Solar System Designer) Dr. CHOCO Yao MD have personally reviewed [...] are normal. Dictated by Rico Sawant DO (executive assistant to president). Dr. AFRICA Yao M.D. have personally reviewed [...] coursing below the diaphragm, terminus outside the fnvoe-sw-eahl. *There is a left subclavian approach central [...] is stable. Dictated by Rico Sawant DO (executive assistant to president). Dr. AFRICA Yao M.D. have personally reviewed [...] below the diaphragm, the segments of the dqurq-ey-wfby. *There is a left subclavian approach central [...] is stable. Dictated by Phan Brothers MD (executive assistant to president). Dr. SUNITA Yao have personally reviewed and [...] is normal. Dictated by Rico Sawant DO (executive assistant to president). IDr. NAOMY MD, [facility] have personally reviewed and interpreted this examination/study. [...] Dr. Carrion Dictated by Bety Rose MD (executive assistant to president). This report was approved by Bety [...] is normal. Dictated by Rico Sawant DO (executive assistant to president). I, Dr. OSWALDO CLEMONS have personally reviewed [...] Report dictated by Simone Alexander MD, PhD (executive assistant to president). I, Dr. CHOCO JIN MD have personally [...] Report dictated by Simone Alexander MD, PhD (executive assistant to president). IDr. NENA have personally reviewed and interpreted [...] the diaphragm with the terminus outside the ddkji-bv-djia. *Bilateral apically oriented thoracostomy tubes are reidentified. [...] on 02/17/2021. Dictated by Rico Sawant DO (executive assistant to president). IDr. OSWALDO have personally reviewed and interpreted [...] mucosal disease. Dictated by Uyen Garcia MD (executive assistant to president). IDr. JUNE have personally reviewed and interpreted [...] courses to the stomach out of the wfsfm-ir-oerv. Chest wall and lower neck subcutaneous emphysema is decreased from prior study. Pneumomediastinum is decreased from prior study. Mild left basilar atelectasis is unchanged. Pleural effusion may contribute to opacity. There is no pneumothorax. The cardiomediastinal silhouette is partially obscured. Dictated by Alverto Ames MD (executive assistant to president). Dr. EULA Yao have personally reviewed and [...] findings above. Dictated by Rico Sawant DO (executive assistant to president). Dr. EULA Yao have personally reviewed and [...] the diaphragm, with its tip outside the rttpy-gd-nxrd. Linear airspace opacities are seen in the right upper and mid lung. Findings may be related to compressive atelectasis or pulmonary contusion in the post traumatic setting. There are linear bibasilar opacities, likely representing atelectasis or aspiration in the posttraumatic/post intubated setting. There is no left pleural effusion. No pneumothorax. The cardiomediastinal silhouette is normal. Dictated by Phan Brothers MD (executive assistant to president). Dr. EULA Yao have personally reviewed and [...] 4:32 AM. Dictated by Arlen Abbott MD (executive assistant to president). Dr. EULA Yao have personally reviewed and [...] is intact. Dictated by Phan Brothers MD (executive assistant to president). I, Dr. EULA GONZALEZ have personally reviewed [...] Fraga MD - 02/22/2021 5:14 AM CDT [facility] Trauma ICU Progress Note Admit: [...] propofol, 0-80 mcg/kg/min, Last Rate: 20 mcg/kg/min (02/22/21 035) PRN Medications: 0.9% NaCl, 1-10 mL, PRN [...] [Urine:1055; Drains:7750] Date 02/21/21699 - 02/22/2165802/22/21699 - 02/23/2159 Shift 0771-9412 0991-7015 24 Hour Total 3054-6715 4205-3075 24 Hour Total INTAKE I.V.(mL/kg/hr) 1643.3(0.9) 1709.9 [...] abnormalities Labs: CBC Recent Labs Component Name 02/21/21231102/20/21232502/19/21 2336 WBC 14.5* 14.6* 13.2* HGB 13.7 15.0 [...] fracture identified. Dictated by Rico Sawant D.O. (Solar System Designer) I, Dr. CHOCO JIN MD have personally [...] are normal. Dictated by Rico Sawant DO (executive assistant to president). Dr. AFRICA Yao M.D. have personally reviewed [...] coursing below the diaphragm, terminus outside the xwfmz-ij-ypxs. *There is a left subclavian approach central [...] is stable. Dictated by Rico Sawant DO (executive assistant to president). Dr. AFRICA Yao M.D. have personally reviewed [...] below the diaphragm, the segments of the oyqge-iv-fiwv. *There is a left subclavian approach central [...] is stable. Dictated by Phan Brothers MD (executive assistant to president). I, Dr. SUNITA BAILEY have personally reviewed [...] is normal. Dictated by Rico Sawant DO (executive assistant to president). I, Dr. NAOMY LAZO MD, [facility] have personally reviewed and interpreted this examination/study. This report was electronically signed by NAOMY LAZO MD, [facility] on 02/20/2021 2:18 PM . MRI BRAIN [...] Dr. Carrion Dictated by Bety Rose MD (executive assistant to president). This report was approved by Bety Rose on 02/20/2021 11:[address] JASWINDER Yao have personally [...] is normal. Dictated by Rico Sawant DO (executive assistant to president). Dr. OSWALDO Yao have personally reviewed and [...] Report dictated by Simone Alexander MD, PhD (executive assistant to president). IDr. CHOCO MD have personally reviewed and [...] Report dictated by Simone Alexander MD, PhD (executive assistant to president). Dr. NENA Yao have personally reviewed and [...] the diaphragm with the terminus outside the eucbw-cq-zaup. *Bilateral apically oriented thoracostomy tubes are reidentified. [...] on 02/17/2021. Dictated by Rico Sawant DO (executive assistant to president). I, Dr. OSWALDO CLEMONS have personally reviewed [...] mucosal disease. Dictated by Uyen Garcia MD (executive assistant to president). IDr. JUNE have personally reviewed and interpreted [...] courses to the stomach out of the fcbyi-xu-hxwm. Chest wall and lower neck subcutaneous emphysema is decreased from prior study. Pneumomediastinum is decreased from prior study. Mild left basilar atelectasis is unchanged. Pleural effusion may contribute to opacity. There is no pneumothorax. The cardiomediastinal silhouette is partially obscured. Dictated by Alverto Ames MD (executive assistant to president). Dr. EULA Yao have personally reviewed and [...] findings above. Dictated by Rico Sawant DO (executive assistant to president). Najma, Dr. EULA GONZALEZ have personally reviewed [...] the diaphragm, with its tip outside the nhwuz-sh-ucva. Linear airspace opacities are seen in the right upper and mid lung. Findings may be related to compressive atelectasis or pulmonary contusion in the post traumatic setting. There are linear bibasilar opacities, likely representing atelectasis or aspiration in the posttraumatic/post intubated setting. There is no left pleural effusion. No pneumothorax. The cardiomediastinal silhouette is normal. Dictated by Phan Brothers MD (executive assistant to president). Najma, Dr. EULA GONZALEZ have personally reviewed [...] 4:32 AM. Dictated by Arlen Abbott MD (executive assistant to president). Dr. EULA Yao have personally reviewed and [...] is intact. Dictated by Phan Brothers MD (executive assistant to president). I, Dr. EULA GONZALEZ have personally reviewed [...] PM Lamberto Moore MD * Ivette Amaral, AIDA - 02/22/2021 12:39 AM CDT 4 bags [...] clinical nutrition guidelines. Estimated Energy Needs: KCAL: 1089-3020 (11-14kcla/kg ABW) Protein (g): 129 (2.0g/kg IBW) Fluid (ml): 1 ml/kcal Needs based on: Kcal/kg- (Comment) (ibw 64.5kg ) Recommended Access Route: [id number] * Sonali Fraga MD - 02/21/2021 5:18 AM CDT [facility] Trauma ICU Progress Note Admit: [...] - 02/21 700 In: 2934.5 [I.V.:2934.5] Out: 191 [Urine:1290; Drains:620] Date 02/20/21699 - 02/21/2165802/21/21699 - 02/22/21 0659 Shift 3855-9793 2402-0001 24 Hour Total 0316-1751 0951-3416 24 Hour Total INTAKE I.V.(mL/kg/hr) 1591.5(0.8) 1343 [...] abnormalities Labs: CBC Recent Labs Component Name 10/07/232502/19/21233502/18/21 230 WBC 14.6* 13.2* 11.9* HGB 15.0 [...] ALKPHOS 97 Coags Recent Labs Component Name 02/20/21232502/19/21233502/18/21230202/15/21223302/15/21 0642 02/15/21 0308 PT 14.8 14.1 14.1 [...] coursing below the diaphragm, terminus outside the jante-ra-hzwf. *There is a left subclavian approach central [...] is stable. Dictated by Rico Sawant DO (executive assistant to president). Dr. AFRICA Yao M.D. have personally reviewed [...] below the diaphragm, the segments of the wikin-gw-ggqx. *There is a left subclavian approach central [...] is stable. Dictated by Phan Brothers MD (executive assistant to president). Dr. SUNITA Yao have personally reviewed and [...] is normal. Dictated by Rico Sawant DO (executive assistant to president). I, Dr. NAOMY LAZO MD, FRCR have [...] Dr. Carrion Dictated by Bety Rose MD (executive assistant to president). This report was approved by Bety [...] is normal. Dictated by Rico Sawant DO (executive assistant to president). I, Dr. OSWALDO CLEMONS have personally reviewed [...] Report dictated by Simone Alexander MD, PhD (executive assistant to president). I, Dr. CHOCO JIN MD have personally [...] Report dictated by Simone Alexander MD, PhD (executive assistant to president). Dr. NENA Yao have personally reviewed and [...] the diaphragm with the terminus outside the gwfkz-kq-ylny. *Bilateral apically oriented thoracostomy tubes are reidentified. [...] on 02/17/2021. Dictated by Rico Sawant DO (executive assistant to president). I, Dr. OSWALDO CLEMONS have personally reviewed [...] mucosal disease. Dictated by Uyen Garcia MD (executive assistant to president). I, Dr. JUNE MADRID have personally reviewed [...] courses to the stomach out of the sdywp-ja-xoql. Chest wall and lower neck subcutaneous emphysema is decreased from prior study. Pneumomediastinum is decreased from prior study. Mild left basilar atelectasis is unchanged. Pleural effusion may contribute to opacity. There is no pneumothorax. The cardiomediastinal silhouette is partially obscured. Dictated by Alverto Ames MD (executive assistant to president). Dr. EULA Yao have personally reviewed and [...] findings above. Dictated by Rico Sawant DO (executive assistant to president). Dr. EULA Yao have personally reviewed and [...] the diaphragm, with its tip outside the wgoce-uc-sscj. Linear airspace opacities are seen in the right upper and mid lung. Findings may be related to compressive atelectasis or pulmonary contusion in the post traumatic setting. There are linear bibasilar opacities, likely representing atelectasis or aspiration in the posttraumatic/post intubated setting. There is no left pleural effusion. No pneumothorax. The cardiomediastinal silhouette is normal. Dictated by Phan Brothers MD (executive assistant to president). Dr. EULA Yao have personally reviewed and [...] 4:32 AM. Dictated by Arlen Abbott MD (executive assistant to president). Dr. EULA Yao have personally reviewed and [...] is intact. Dictated by Phan Brothers MD (executive assistant to president). Dr. EULA Yao have personally reviewed and [...] call Noemi for changes. Sister Noemi Tyler [phone] Aunt Mainor [phone] Problem: Pain/Discomfort Goal: Patient exhibits reduced pain/discomfort [...] Mello MD - 02/20/2021 2:24 PM CDT [facility] Stroke Progress Note Jaime Tyler Age: [...] MD PGY-3 Neurology Resident Associated attestation - Jarivs Henao MD - 02/20/2021 6:35 PM CDT Images from the original note were not included. Patient seen and examined with Resident. Please see note for further details. I was present for thekey portions of any procedures performed and always available. I confirm history, exam, assessment.Patient with radiographic evidence of hypoxic ischemic injury. * Sonia Donato - 02/20/2021 12:24 PM CDT Tool Crib Attendant followed up with pt's mother to see if she would benefit from pastoral care support. Shira, pt's mother, communicated that she needed to call her daughter and did not need pastoral care visit at this time. Tool Crib Attendant encouraged her to let her know if she would like a visit in the future. Pastoral care will continue to follow. Please have pastoral care contacted if a need/arises. Martha Teaguet Tanmay 02/20/2021 12:26 PM * Alverto Godoy MD - 02/20/2021 11:37 AM CDT Patient seen and examined this AM. Discussed with trauma ICU team. Previous results, notes and imaging reviewed. OK to proceed to OR today for re- exploratory laparotomy, possible closure, possible abdominal wound vac. Alverto Godoy MD 02/20/2021 * Sonali Fraga MD - 02/20/2021 6:40 AM CDT [facility] Trauma ICU Progress Note Admit: [...] 02/20 700 In: 3146.8 [I.V.:3096.8] Out: 4060 [Urine:5; Drains:1934] Date 02/19/21699 - 02/20/2165802/20/21699 - 02/21/21658 Shift 6149-0960 6936-4080 24 Hour Total 9935-1768 3978-9509 24 Hour Total INTAKE I.V.(mL/kg/hr) 558.1(0.3) 2538.7 [...] is normal. Dictated by Rico Sawant DO (executive assistant to president). I, Dr. OSWALDO CLEMONS have personally reviewed [...] Report dictated by Simone Alexander MD, PhD (executive assistant to president). IDr. CHOCO MD have personally reviewed and [...] Report dictated by Simone Alexander MD, PhD (executive assistant to president). Dr. NENA Yao have personally reviewed and [...] the diaphragm with the terminus outside the zbnev-zx-sbxm. *Bilateral apically oriented thoracostomy tubes are reidentified. [...] discussed with trauma ICU resident Dr. Fredy Vázuqez at 10:38 AM on 02/17/2021. Dictated by Rico Sawant DO (executive assistant to president). I, Dr. OSWADLO CLEMONS have personally reviewed and interpreted this [...] mucosal disease. Dictated by Uyen Garcia MD (executive assistant to president). IDr. JUNE have personally reviewed and interpreted [...] courses to the stomach out of the drwde-yo-owad. Chest wall and lower neck subcutaneous emphysema is decreased from prior study. Pneumomediastinum is decreased from prior study. Mild left basilar atelectasis is unchanged. Pleural effusion may contribute to opacity. There is no pneumothorax. The cardiomediastinal silhouette is partially obscured. Dictated by Alverto Ames MD (executive assistant to president). Dr. EULA Yao have personally reviewed and [...] findings above. Dictated by Rico Sawant DO (executive assistant to president). Dr. EULA Yao have personally reviewed and [...] the diaphragm, with its tip outside the uwphq-pu-mtns. Linear airspace opacities are seen in the right upper and mid lung. Findings may be related to compressive atelectasis or pulmonary contusion in the post traumatic setting. There are linear bibasilar opacities, likely representing atelectasis or aspiration in the posttraumatic/post intubated setting. There is no left pleural effusion. No pneumothorax. The cardiomediastinal silhouette is normal. Dictated by Phan Brothers MD (executive assistant to president). Dr. EULA Yao have personally reviewed and [...] 4:32 AM. Dictated by Arlen Abbott MD (executive assistant to president). Dr. EULA Yao have personally reviewed and [...] is intact. Dictated by Phan Brothers MD (executive assistant to president). I, Dr. EULA GONZALEZ have personally reviewed and interpreted this examination/study. This report was electronically signed by EUAL GONZALEZ on 02/15/2021 5:51 PM . MRI [...] Fraga MD - 02/19/2021 6:57 AM CDT [facility] Trauma ICU Progress Note Admit: [...] dexmedeTOMIDine, 0-1.5 mcg/kg/hr, Last Rate: 0.3 mcg/kg/hr (02/19/21421) fentanyl, 0-300 mcg/hr, Last Rate: 250 mcg/hr (02/19/21541) lactated ringers, , Last Rate: 125 mL/hr at 02/18/212157 niCARdipine, 0-15 mg/hr PRN Medications: 0.9% NaCl, [...] Date 02/18/21699 - 02/19/2165802/19/21699 - 02/20/2159 Shift 0906-3005 9582-4202 24 Hour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 [facility] RBC 3.36(L) 4.30 - 5.70 10? 6 /uL 03/11/2021 12:07 AM [facility] Hemoglobin 9.1(L) 12.0 - 17.6 g/dL 03/11/2021 12:07 AM [facility] Hematocrit 29.4(L) 35.2 - 51.7 % 03/11/2021 12:07 AM [facility] MCV 87.5 80.7 - 98.3 fL 03/11/2021 12:07 AM [facility] MCH 27.1 26.7 - 34.0 pg 03/11/2021 12:07 AM [facility] MCHC 31.0 30.8 - 35.9 g/dL 03/11/2021 12:07 AM [facility] Platelet Count 455(H) 150 - 400 10? 3 /uL 03/11/2021 12:07 AM [facility] RDW-SD 44.5 36.0 - 50.0 fL 03/11/2021 12:07 AM [facility] RDW-CV 14.0 11.2 - 14.8 % 03/11/2021 12:07 AM [facility] MPV 9.8 9.4 - 12.9 fL 03/11/2021 12:07 AM [facility] nRBC Absolute 0.00 0 10? 3 /uL 03/11/2021 12:07 AM [facility] nRBC Auto 0.0 0 /100 WBC 03/11/2021 12:07 AM [facility] Neutrophils % 78.7(H) 35.0 - 70.0 % 03/11/2021 12:07 AM [facility] Lymphocytes % 8.4(L) 20.0 - 43.0 % 03/11/2021 12:07 AM [facility] Monocytes % 7.1 5.0 - 13.0 % 03/11/2021 12:07 AM [facility] Eosinophils % 4.1 0.0 - 6.0 % 03/11/2021 12:07 AM [facility] Basophil % 0.2 0.0 - 2.0 % 03/11/2021 12:07 AM [facility] Neutrophils Absolute 15.7(H) 1.6 - 7.0 10? 3 /uL 03/11/2021 12:07 AM [facility] Lymphocyte Absolute 1.7 1.1 - 3.9 10? 3 /uL 03/11/2021 12:07 AM [facility] Monocytes Absolute 1.42(H) 0.26 - 1.07 10? 3 /uL 03/11/2021 12:07 AM [facility] Eosinophils Absolute 0.82(H) 0.00 - 0.47 10? 3 /uL 03/11/2021 12:07 AM [facility] Basophils Absolute 0.04 0.00 - 0.08 10? 3 /uL 03/11/2021 12:07 AM [facility] Immature Granulocytes % 1.5(H) 0.0 - 1.0 % 03/11/2021 12:07 AM [facility] Immature Granulocytes Absolute 0.30 03/11/2021 12:07 AM [facility] Blood BLOOD SPECIMEN / Unknown Venipuncture / Unknown 03/10/2021 11:51 PM CDT 03/11/2021 12:03 AM CDT Fredy Felipe MD LAB - HEMATOLOGY ORD ERABLES [facility] [address] [place] [address], [facility] [phone] * (ABNORMAL) BASIC METABOLIC PANEL (CALCIUM TOTAL) (03/10/2021 11:51 PM CDT) BUN 34(H) 7 - 26 mg/dL 03/11/2021 12:25 AM [facility] Creatinine 1.54(H) 0.71 - 1.16 mg/dL 03/11/2021 12:25 AM [facility] Sodium 142 136 - 145 mmol/L 03/11/2021 12:25 AM [facility] Potassium 4.2 3.5 - 4.5 mmol/L 03/11/2021 12:25 AM [facility] Chloride 110(H) 98 - 107 mmol/L 03/11/2021 12:25 AM [facility] CO2 20(L) 22 - 29 mmol/L 03/11/2021 12:25 AM [facility] Glucose 134(H) 70 - 115 mg/dL 03/11/2021 12:25 AM [facility] Calcium 9.1 8.4 - 10.2 mg/dL 03/11/2021 12:25 AM [facility] Anion Gap 16 8 - 18 03/11/2021 12:25 AM [facility] BUN/Creatinine Ratio 22 7 - 23 03/11/2021 12:25 AM [facility] Osmolality Calculated 304(H) 270 - 300 mOsm/kg 03/11/2021 12:25 AM [facility] eGFR by CKD-EPI 58(L) >=90 mL/min/1.7 3 m2 03/11/2021 12:25 AM [facility] Blood BLOOD SPECIMEN / Unknown Venipuncture / Unknown 03/10/2021 11:51 PM CDT 03/11/2021 12:03 AM CDT Fredy Felipe MD LAB - CHEMISTRY [facility]RI[facility]ELA [address] [address], [facility] [phone] * PHOSPHORUS BLOOD (03/10/2021 11:51 PM CDT) Phosphorus 4.0 2.8 - 5.1 mg/dL 03/11/2021 12:25 AM CDT [facility] Blood BLOOD SPECIMEN / Unknown Venipuncture / Unknown 03/10/2021 11:51 PM CDT 03/11/2021 12:03 AM CDT Fredy Felipe MD LAB - CHEMISTRY JOSE ENRIQUE VELA Performing Organization Address City/[facility]/ZIP Co de Phone Number [address] [address], [facility] [phone] * MAGNESIUM BLOOD (03/10/2021 11:51 PM CDT) Magnesium 2.1 1.6 - 2.6 mg/dL 03/11/2021 12:25 AM CDT [facility] Blood BLOOD SPECIMEN / Unknown Venipuncture / Unknown 03/10/2021 11:51 PM CDT 03/11/2021 12:03 AM CDT Fredy Felipe MD LAB - CHEMISTRY JOSE ENRIQUE VELA [address] [address], [facility] [phone] * (ABNORMAL) CALCIUM IONIZED WHOLE BLOOD (03/10/2021 11:51 PM CDT) Calcium Ionized 1.20 mmol/L 03/11/2021 12:01 AM CDT [facility] pH 7.36 7.35 - 7.45 pH 03/11/2021 12:01 AM CDT [facility] Ionized Calcium pH Adjusted 1.18(L) 1.19 - 1.34 mmol/L 03/11/2021 12:01 AM [facility] Blood BLOOD SPECIMEN / Unknown Venipuncture / Unknown 03/10/2021 11:51 PM CDT 03/10/2021 11:57 PM CDT Fredy Felipe MD LAB - CHEMISTRY JOSE ENRIQUE [facility] Organization Address City/[facility]/ZIP Co de Phone Number [facility] [address] [place] [address], [facility] [phone] * (ABNORMAL) BLOOD GASES ART + COOX PANEL (03/10/2021 12:48 AM CDT) pH Arterial 7.48(H) 7.35 - 7.45 pH 03/10/2021 12:53 AM [facility] pO2 Arterial 161(H) 80 - 100 mmHg 03/10/2021 12:53 AM [facility] pCO2 Arterial 25(L) 35 - 45 mmHg 12:53 AM [facility] HCO3 Arterial 19(L) 20 - 30 mmol/l 03/10/2021 12:53 AM [facility] BE Arterial -3.7(L) -2.0 - 2.0 mmol/L 03/10/2021 12:53 AM [facility] Oxyhemoglobin Arterial 96.3 % 03/10/2021 12:53 AM [facility] Dexoyhemoglobin (HHB) % 0.5 % 03/10/2021 12:53 AM [facility] Methemoglobin 1.1 0.0 - 2.0 % 03/10/2021 12:53 AM [facility] Carboxyhemoglobin 2.1(H) 0.0 - 2.0 % 2020 12:53 AM [facility] O2 Content Arterial 14.6 Interpret within clinical context mg/dL 03/10/2021 12:53 AM [facility] Hemoglobin by COOX 10.5(L) 12.0 - 17.6 g/dL 03/10/2021 12:53 AM [facility] O2 Saturation Arterial 100 90 - 100 % 03/10/2021 12:53 AM T [facility] FI O2 Arterial 30.0 % 03/10/2021 12:53 AM T [facility] Blood, arterial ARTERIAL BLOOD SPECIMEN / Unknown Arterial Puncture / Unknown 03/10/2021 12:48 AM CDT 03/10/2021 12:50 AM CDT Narrative [facility] - 03/10/2021 12:53 AM CDT Carboxyhemoglobin Normal Concentration: Non-smokers: 0-2%; Smokers: 0-9%; Toxic: >20% Fredy Felipe MD LAB - BLOOD GASES OR DERABLES Performing Organization Address City/[facility]/ZIP Co de Phone Number [address] [address], [facility] [phone] * (ABNORMAL) CALCIUM IONIZED WHOLE BLOOD (03/10/2021 12:48 AM CDT) Pathologist [facility] Calcium Ionized 1.17 mmol/L 03/10/2021 12:54 AM [facility] pH 7.50(H) 7.35 - 7.45 pH 03/10/2021 12:54 AM [facility] Ionized Calcium pH Adjusted 1.22 1.19 - 1.34 mmol/L 03/10/2021 12:54 AM T [facility] Blood BLOOD SPECIMEN / Unknown Venipuncture / Unknown 03/10/2021 12:48 AM CDT 03/10/2021 12:50 AM CDT Fredy Felipe MD LAB - CHEMISTRY ORDE RABSILVA [address] [address], [facility] [phone] * (ABNORMAL) DIFFERENTIAL MANUAL (03/10/2021 12:08 AM CDT) WBC (corrected for NRBC) 22.6 10? 3 /uL 03/10/2021 2:05 AM T [facility] Total Cell Count 100 03/10/2021 2:05 AM [facility] Neutrophils Absolute Manual 18.53(H) 1.60 - 7.00 10? 3 /uL 03/10/2021 2:05 AM [facility] Comment:(BANDS+SEGS) x WBC = NEUT # (ANC) Lymphocyte Absolute Manual 1.36 1.10 - 3.90 10? 3 /uL 03/10/2021 2:05 AM [facility] Monocytes Absolute Manual 1.81(H) 0.26 - 1.07 10? 3 /uL 03/10/2021 2:05 AM [facility] Eosinophils Absolute Manual 0.68(H) 0.00 - 0.47 10? 3 /uL 03/10/2021 2:05 AM [facility] Basophil Absolute Manual 0.23(H) 0.00 - 0.08 10? 3 /uL 03/10/2021 2:05 AM [facility] Band % Manual 2 0 - 10 % 03/10/2021 2:05 AM [facility] Neutrophil % Manual 80(H) 35 - 70 % 03/10/2021 2:05 AM [facility] Lymphocyte % Manual 6(L) 20 - 43 % 03/10/2021 2:05 AM [facility] Monocytes % Manual 8 5 - 13 % 03/10/2021 2:05 AM [facility] Eosinophils % Manual 3 0 - 6 % 03/10/2021 2:05 AM [facility] Basophils % Manual 1 0 - 2 % 03/10/2021 2:05 AM [facility] Platelet Estimate Increased( A) Adequate 03/10/2021 2:05 AM [facility] RBC Morphology Normal 03/10/2021 2:05 AM [facility] Blood BLOOD SPECIMEN / Unknown Venipuncture / Unknown 03/10/2021 12:08 AM CDT 03/10/2021 12:23 AM [facility] Fredy Felipe MD LAB - HEMATOLOGY ORD ERABLES [facility] [address] [place] [address], [facility] [phone] * (ABNORMAL) CBC W AUTO DIFFERENTIAL (03/10/2021 12:08 AM T) WBC 22.6(H) 3.5 - 10.5 10? 3 /uL 03/10/2021 12:33 AM [facility] RBC 3.57(L) 4.30 - 5.70 10? 6 /uL 03/10/2021 12:33 AM [facility] Hemoglobin 9.7(L) 12.0 - 17.6 g/dL 03/10/2021 12:33 AM [facility] Hematocrit 31.0(L) 35.2 - 51.7 % 03/10/2021 12:33 AM [facility] MCV 86.8 80.7 - 98.3 fL 03/10/2021 12:33 AM [facility] MCH 27.2 26.7 - 34.0 pg 03/10/2021 12:33 AM [facility] MCHC 31.3 30.8 - 35.9 g/dL 03/10/2021 12:33 AM [facility] Platelet Count 516(H) 150 - 400 10? 3 /uL 03/10/2021 12:33 AM [facility] RDW-SD 42.9 36.0 - 50.0 fL 03/10/2021 12:33 AM [facility] RDW-CV 13.8 11.2 - 14.8 % 03/10/2021 12:33 AM [facility] MPV 9.8 9.4 - 12.9 fL 03/10/2021 12:33 AM [facility] nRBC Absolute 0.00 0 10? 3 /uL 03/10/2021 12:33 AM [facility] nRBC Auto 0.0 0 /100 WBC 03/10/2021 12:33 AM [facility] Blood BLOOD SPECIMEN / Unknown Venipuncture / Unknown 03/10/2021 12:08 AM CDT 03/10/2021 12:23 AM T Fredy Felipe MD LAB - HEMATOLOGY ORD ERABLES [facility] [address] [place] [address], [facility] [phone] * (ABNORMAL) BASIC METABOLIC PANEL (CALCIUM TOTAL) (03/10/2021 12:08 AM CDT) BUN 38(H) 7 - 26 mg/dL 03/10/2021 12:46 AM [facility] Creatinine 1.65(H) 0.71 - 1.16 mg/dL 03/10/2021 12:46 AM [facility] Sodium 142 136 - 145 mmol/L 03/10/2021 12:46 AM [facility] Potassium 4.3 3.5 - 4.5 mmol/L 03/10/2021 12:46 AM [facility] Chloride 111(H) 98 - 107 mmol/L 03/10/2021 12:46 AM [facility] CO2 18(L) 22 - 29 mmol/L 03/10/2021 12:46 AM [facility] Glucose 156(H) 70 - 115 mg/dL 03/10/2021 12:46 AM [facility] Calcium 8.8 8.4 - 10.2 mg/dL 03/10/2021 12:46 AM [facility] Anion Gap 17 8 - 18 03/10/2021 12:46 AM [facility] BUN/Creatinine Ratio 23 7 - 23 03/10/2021 12:46 AM [facility] Osmolality Calculated 306(H) 270 - 300 mOsm/kg 03/10/2021 12:46 AM [facility] eGFR by CKD-EPI 53(L) >=90 mL/min/1.7 3 m2 03/10/2021 12:46 AM [facility] Blood BLOOD SPECIMEN / Unknown Venipuncture / Unknown 03/10/2021 12:08 AM CDT 03/10/2021 12:23 AM T Fredy Felipe MD LAB - CHEMISTRY JOSE ENRIQUE VELA [facility] [address] [place] [address], [place] [phone] * PHOSPHORUS BLOOD (03/10/2021 12:08 AM CDT) Phosphorus 4.0 2.8 - 5.1 mg/dL 03/10/2021 12:46 AM CDT [facility] Blood BLOOD SPECIMEN / Unknown Venipuncture / Unknown 03/10/2021 12:08 AM CDT 03/10/2021 12:23 AM CDT Fredy Felipe MD LAB - CHEMISTRY JOSE ENRIQUE VELA [address] [address], [place] [phone] * MAGNESIUM BLOOD (03/10/2021 12:08 AM CDT) Magnesium 2.2 1.6 - 2.6 mg/dL 03/10/2021 12:46 AM CDT [facility] Blood BLOOD SPECIMEN / Unknown Venipuncture / Unknown 03/10/2021 12:08 AM CDT 03/10/2021 12:23 AM CDT Fredy Felipe MD LAB - CHEMISTRY JOSE ENRIQUE VELA [address] [address], [place] [phone] * VANCOMYCIN LEVEL RANDOM (03/09/2021 6:26 AM CDT) Vancomycin Random 19.6 Therapeutic Ranges not established for random specimens ug/mL 03/09/2021 6:56 AM CDT [facility] Blood BLOOD SPECIMEN / Unknown Venipuncture / Unknown 03/09/2021 6:26 AM CDT 03/09/2021 6:34 AM CDT Narrative [facility] - 03/09/2021 6:56 AM CDT See institution protocol. Fredy Felipe MD LAB - CHEMISTRY JOSE ENRIQUE VELA [facility] [address] [place] [address], [facility] [phone] * XR CHEST 1VW PORTABLE (03/09/2021 6:08 [...] stable. Report dictated by Cyndi Carter MD (executive assistant to president). Dr. NENA Yao have personally reviewed and interpreted this examination/study. This report was electronically signed by NENA CLEMENTE ??on 03/09/2021 12:04 PM . Narrative 03/09/2021 12:04 PM CDT EXAMINATION: XR CHEST 1VW PORTABLE, 03/09/2021 6:08 AM HISTORY: T88.4XXA: Difficult airway for intubation, initial encounter COMPARISON: 03/08/2021 Procedure Note Nena Clemente, - 03/09/2021 EXAMINATION: XR CHEST 1VW PORTABLE, 03/09/2021 6:08 AM HISTORY: T88.4XXA: Difficult airway for intubation, initial encounter COMPARISON: 03/08/2021 FINDINGS/IMPRESSION: Tracheostomy tube terminates in the midthoracic trachea. Low lung volumes with probable vascular crowding. Patchy linearopacities may represent pulmonary edema versus atypical infection. There is no pleural effusion or pneumothorax. The cardiomediastinal silhouette is stable. Report dictated by Cyndi Carter MD (executive assistant to president). Dr. NENA Yao have personally reviewed and interpreted this examination/study. This report was electronically signed by NENA CLEMENTE on 03/09/2021 12:04 PM . Fredy Felipe MD DIAGNOSTIC IMAGING O RDERABLES * (ABNORMAL) DIFFERENTIAL MANUAL (03/09/2021 12:18 AM CDT) WBC (corrected for NRBC) 24.1 10? 3 /uL 03/09/2021 2:04 AM [facility] Total Cell Count 100 03/09/20 2:04 AM [facility] Neutrophils Absolute Manual 19.76(H) 1.60 - 7.00 10? 3 /uL 03/09/2021 2:04 AM [facility] Comment:(BANDS+SEGS) x WBC = NEUT # (ANC) Lymphocyte Absolute Manual 1.69 1.10 - 3.90 10? 3 /uL 03/09/2021 2:04 AM [facility] Monocytes Absolute Manual 1.69(H) 0.26 - 1.07 10? 3 /uL 03/09/2021 2:04 AM [facility] Eosinophils Absolute Manual 0.72(H) 0.00 - 0.47 10? 3 /uL 03/09/2021 2:04 AM [facility] Neutrophil % Manual 82(H) 35 - 70 % 03/09/2021 2:04 AM [facility] Lymphocyte % Manual 7(L) 20 - 43 % 03/09/2021 2:04 AM [facility] Monocytes % Manual 7 5 - 13 % 03/09/2021 2:04 AM [facility] Eosinophils % Manual 3 0 - 6 % 03/09/2021 2:04 AM [facility] Metamyelocyte % Manual 1(H) 0 % 03/09/2021 2:04 AM [facility] Platelet Estimate Increased( A) Adequate 03/09/2021 2:04 AM [facility] RBC Morphology Normal 03/09/2021 2:04 AM [facility] Blood BLOOD SPECIMEN / Unknown Venipuncture / Unknown 03/09/2021 12:18 AM CDT 03/09/2021 12:28 AM T Fredy Felipe MD LAB - HEMATOLOGY ORD ERABLES [facility] [address] [place] [address] [phone] * (ABNORMAL) CBC W AUTO DIFFERENTIAL (03/09/2021 12:18 AM T) WBC 24.1(H) 3.5 - 10.5 10? 3 /uL 03/09/2021 12:36 AM [facility] RBC 3.61(L) 4.30 - 5.70 10? 6 /uL 03/09/2021 12:36 AM [facility] Hemoglobin 9.8(L) 12.0 - 17.6 g/dL 03/09/2021 12:36 AM [facility] Hematocrit 31.0(L) 35.2 - 51.7 % 03/09/2021 12:36 AM [facility] MCV 85.9 80.7 - 98.3 fL 03/09/2021 12:36 AM [facility] MCH 27.1 26.7 - 34.0 pg 03/09/2021 12:36 AM [facility] MCHC 31.6 30.8 - 35.9 g/dL 03/09/2021 12:36 AM [facility] Platelet Count 541(H) 150 - 400 10? 3 /uL 03/09/2021 12:36 AM [facility] RDW-SD 43.3 36.0 - 50.0 fL 03/09/2021 12:36 AM [facility] RDW-CV 13.9 11.2 - 14.8 % 03/09/2021 12:36 AM [facility] MPV 9.5 9.4 - 12.9 fL 03/09/2021 12:36 AM [facility] nRBC Absolute 0.00 0 10? 3 /uL 03/09/2021 12:36 AM [facility] nRBC Auto 0.0 0 /100 WBC 03/09/2021 12:36 AM [facility] Blood BLOOD SPECIMEN / Unknown Venipuncture / Unknown 03/09/2021 12:18 AM CDT 03/09/2021 12:28 AM T Fredy Felipe MD LAB - HEMATOLOGY ORD TERESA Performing Organization Address City/[facility]/ZIP Co de Phone Number [facility] [address] [place] [address], [facility] [phone] * (ABNORMAL) BASIC METABOLIC PANEL (CALCIUM TOTAL) (03/09/2021 12:18 AM CDT) BUN 34(H) 7 - 26 mg/dL 03/09/2021 12:53 AM [facility] Creatinine 1.67(H) 0.71 - 1.16 mg/dL 03/09/2021 12:53 AM [facility] Sodium 145 136 - 145 mmol/L 03/09/2021 12:53 AM [facility] Potassium 4.4 3.5 - 4.5 mmol/L 03/09/2021 12:53 AM [facility] Chloride 114(H) 98 - 107 mmol/L 03/09/2021 12:53 AM [facility] CO2 18(L) 22 - 29 mmol/L 03/09/2021 12:53 AM [facility] Glucose 146(H) 70 - 115 mg/dL 03/09/2021 12:53 AM [facility] Calcium 9.0 8.4 - 10.2 mg/dL 03/09/2021 12:53 AM [facility] Anion Gap 17 8 - 18 03/09/2021 12:53 AM [facility] BUN/Creatinine Ratio 20 7 - 23 03/09/2021 12:53 AM [facility] Osmolality Calculated 310(H) 270 - 300 mOsm/kg 03/09/2021 12:53 AM [facility] eGFR by CKD-EPI 52(L) >=90 mL/min/1.7 3 m2 03/09/2021 12:53 AM [facility] Blood BLOOD SPECIMEN / Unknown Venipuncture / Unknown 03/09/2021 12:18 AM CDT 03/09/2021 12:28 AM T Fredy Felipe MD LAB - CHEMISTRY JOSE ENRIQUE [facility] [address] [place] [address], [facility] [phone] * (ABNORMAL) BLOOD GASES ART + COOX PANEL (03/09/2021 12:18 AM [facility]) pH Arterial 7.47(H) 7.35 - 7.45 pH 03/09/2021 12:32 AM [facility] pO2 Arterial 94 80 - 100 mmHg 03/09/2021 12:32 AM [facility] pCO2 Arterial 27(L) 35 - 45 mmHg 12:32 AM [facility] HCO3 Arterial 20 20 - 30 mmol/l 03/09/2021 12:32 AM [facility] BE Arterial -2.9(L) -2.0 - 2.0 mmol/L 03/09/2021 12:32 AM [facility] Oxyhemoglobin Arterial 95.9 % 03/09/2021 12:32 AM [facility] Dexoyhemoglobin (HHB) % 1.0 % 03/09/2021 12:32 AM [facility] Methemoglobin 1.0 0.0 - 2.0 % 03/09/2021 12:32 AM [facility] Carboxyhemoglobin 2.2(H) 0.0 - 2.0 % 2020 12:32 AM [facility] O2 Content Arterial 15.1 Interpret within clinical context mg/dL 03/09/2021 12:32 AM [facility] Hemoglobin by COOX 11.1(L) 12.0 - 17.6 g/dL 03/09/2021 12:32 AM [facility] O2 Saturation Arterial 99 90 - 100 % 03/09/2021 12:32 AM [facility] FI O2 Arterial 21.0 % 03/09/2021 12:32 AM [facility] Blood, arterial ARTERIAL BLOOD SPECIMEN / Unknown Arterial Puncture / Unknown 03/09/2021 12:18 AM CDT 03/09/2021 12:25 AM [facility] - 03/09/2021 12:32 AM CDT Carboxyhemoglobin Normal Concentration: Non-smokers: 0-2%; Smokers: 0-9%; Toxic: >20% Fredy Felipe MD LAB - BLOOD GASES OR DERABLES Performing Organization Address [facility]/ZIP Co de Phone Number [address] [address], [place] [phone] * PHOSPHORUS BLOOD (03/09/2021 12:18 AM CDT) Phosphorus 3.7 2.8 - 5.1 mg/dL 03/09/2021 12:53 AM CDT [facility] Blood BLOOD SPECIMEN / Unknown Venipuncture / Unknown 03/09/2021 12:18 AM CDT 03/09/2021 12:28 AM CDT Fredy Felipe MD LAB - CHEMISTRY JOSE ENRIQUE [facility]ELA Performing Organization Address [facility] Co de Phone Number [address] [address], [place] [phone] * MAGNESIUM BLOOD (03/09/2021 12:18 AM CDT) Magnesium 2.3 1.6 - 2.6 mg/dL 03/09/2021 12:53 AM CDT [facility] Blood BLOOD SPECIMEN / Unknown Venipuncture / Unknown 03/09/2021 12:18 AM CDT 03/09/2021 12:28 AM CDT Fredy Felipe MD LAB - CHEMISTRY JOSE ENRIQUE [facility]ELA Performing Organization Address [facility]/ZIP Co de Phone Number [address] [address], [place] [phone] * (ABNORMAL) CALCIUM IONIZED WHOLE BLOOD (03/09/2021 12:18 AM CDT) Calcium Ionized 1.17 mmol/L 03/09/2021 12:31 AM CDT [facility] pH 7.47(H) 7.35 - 7.45 pH 03/09/2021 12:31 AM CDT [facility] Ionized Calcium pH Adjusted 1.20 1.19 - 1.34 mmol/L 03/09/2021 12:31 AM CDT [facility] Blood BLOOD SPECIMEN / Unknown Venipuncture / Unknown 03/09/2021 12:18 AM CDT 03/09/2021 12:25 AM CDT Fredy Felipe MD LAB - CHEMISTRY JOSE ENRIQUE VELA Performing Organization Address [facility]/ZIP Co de Phone Number [address] [address], [facility] [phone] * VANCOMYCIN LEVEL RANDOM (03/08/2021 5:30 PM CDT) Vancomycin Random 32.6 Therapeutic Ranges not established for random specimens ug/mL 03/08/2021 5:57 PM CDT [facility] Blood BLOOD SPECIMEN / Unknown Venipuncture / Unknown 03/08/2021 5:30 PM CDT 03/08/2021 5:36 PM CDT Narrative [facility] - 03/08/2021 5:57 PM CDT See institution protocol. Fredy Felipe MD LAB - CHEMISTRY JOSE ENRIQUE [facility]ELA Performing Organization Address [facility] Co de Phone Number [address] [address], [place] [phone] * XR CHEST 1VW PORTABLE (03/08/2021 5:50 [...] is stable. Dictated by Phan Brothers MD (executive assistant to president). I, Dr. NENA CLEMENTE have personally reviewed [...] is stable. Dictated by Phan Brothers MD (executive assistant to president). I, Dr. NENA CLEMENTE have personally reviewed and interpreted this examination/study. This report was electronically signed by NENA CLEMENTE on 03/09/2021 11:30 AM . Fredy Felipe MD DIAGNOSTIC IMAGING O RDERABLES * (ABNORMAL) DIFFERENTIAL MANUAL (03/07/2021 11:57 PM CDT) WBC (corrected for NRBC) 22.8 10? 3 /uL 03/08/2021 2:26 AM [facility] Total Cell Count 100 03/08/2021 2:26 AM [facility] Neutrophils Absolute Manual 18.24(H) 1.60 - 7.00 10? 3 /uL 03/08/2021 2:26 AM [facility] Comment:(BANDS+SEGS) x WBC = NEUT # (ANC) Lymphocyte Absolute Manual 1.60 1.10 - 3.90 10? 3 /uL 03/08/2021 2:26 AM [facility] Monocytes Absolute Manual 1.60(H) 0.26 - 1.07 10? 3 /uL 03/08/2021 2:26 AM [facility] Eosinophils Absolute Manual 0.68(H) 0.00 - 0.47 10? 3 /uL 03/08/2021 2:26 AM T [facility] Basophil Absolute Manual 0.23(H) 0.00 - 0.08 10? 3 /uL 03/08/2021 2:26 AM T [facility] Neutrophil % Manual 80(H) 35 - 70 % 03/08/2021 2:26 AM T [facility] Lymphocyte % Manual 7(L) 20 - 43 % 03/08/2021 2:26 AM T [facility] Monocytes % Manual 7 5 - 13 % 03/08/2021 2:26 AM T [facility] Eosinophils % Manual 3 0 - 6 % 03/08/2021 2:26 AM T [facility] Basophils % Manual 1 0 - 2 % 03/08/2021 2:26 AM [facility] Atypical Lymphocyte % Manual 2(H) 0 % 03/08/2021 2:26 AM [facility] Platelet Estimate Adequate Adequate 03/08/2021 2:26 AM [facility] RBC Morphology Normal 03/08/2021 2:26 AM T [facility] Blood BLOOD SPECIMEN / Unknown Venipuncture / Unknown 03/07/2021 11:57 PM CDT 03/08/2021 12:23 AM CDT Fredy Felipe MD LAB - HEMATOLOGY ORD ERABLES [facility] [address] [place] [address], [facility] [phone] * (ABNORMAL) VANCOMYCIN LEVEL TROUGH (03/07/2021 11:57 PM CDT) Vancomycin Trough 22.7(H) 10.0 - 20.0 ug/mL 03/08/2021 12:47 AM CDT [facility] Blood BLOOD SPECIMEN / Unknown Venipuncture / Unknown 03/07/2021 11:57 PM CDT 03/08/2021 12:23 AM CDT Narrative [facility] - 03/08/2021 12:47 AM CDT See institution protocol. Fredy Felipe MD LAB - CHEMISTRY JOSE ENRIQUE VELA [facility] Organization Address City/State/ZIP Co de Phone Number [facility] [address] [place] [address], [facility] [phone] * (ABNORMAL) CBC W AUTO DIFFERENTIAL (03/07/2021 11:57 PM CDT) WBC 22.8(H) 3.5 - 10.5 10? 3 /uL 03/08/2021 12:29 AM [facility] RBC 3.55(L) 4.30 - 5.70 10? 6 /uL 03/08/2021 12:29 AM [facility] Hemoglobin 9.7(L) 12.0 - 17.6 g/dL 03/08/2021 12:29 AM [facility] Hematocrit 30.4(L) 35.2 - 51.7 % 03/08/2021 12:29 AM [facility] MCV 85.6 80.7 - 98.3 fL 03/08/2021 12:29 AM [facility] MCH 27.3 26.7 - 34.0 pg 03/08/2021 12:29 AM [facility] MCHC 31.9 30.8 - 35.9 g/dL 03/08/2021 12:29 AM [facility] Platelet Count 535(H) 150 - 400 10? 3 /uL 03/08/2021 12:29 AM [facility] RDW-SD 43.0 36.0 - 50.0 fL 03/08/2021 12:29 AM [facility] RDW-CV 13.6 11.2 - 14.8 % 03/08/2021 12:29 AM [facility] MPV 9.4 9.4 - 12.9 fL 03/08/2021 12:29 AM [facility] nRBC Absolute 0.00 0 10? 3 /uL 03/08/2021 12:29 AM [facility] nRBC Auto 0.0 0 /100 WBC 03/08/2021 12:29 AM [facility] Blood BLOOD SPECIMEN / Unknown Venipuncture / Unknown 03/07/2021 11:57 PM CDT 03/08/2021 12:23 AM CDT Fredy Felipe MD LAB - HEMATOLOGY ORD ERABLES [facility] [address] [place] [address], [facility] [phone] * (ABNORMAL) BASIC METABOLIC PANEL (CALCIUM TOTAL) (03/07/2021 11:57 PM CDT) BUN 35(H) 7 - 26 mg/dL 03/08/2021 12:49 AM [facility] Creatinine 1.60(H) 0.71 - 1.16 mg/dL 03/08/2021 12:49 AM [facility] Sodium 144 136 - 145 mmol/L 03/08/2021 12:49 AM [facility] Potassium 4.0 3.5 - 4.5 mmol/L 03/08/2021 12:49 AM [facility] Chloride 113(H) 98 - 107 mmol/L 03/08/2021 12:49 AM [facility] CO2 20(L) 22 - 29 mmol/L 03/08/2021 12:49 AM [facility] Glucose 132(H) 70 - 115 mg/dL 03/08/2021 12:49 AM [facility] Calcium 9.1 8.4 - 10.2 mg/dL 03/08/2021 12:49 AM [facility] Anion Gap 15 8 - 18 03/08/2021 12:49 AM [facility] BUN/Creatinine Ratio 22 7 - 23 03/08/2021 12:49 AM [facility] Osmolality Calculated 308(H) 270 - 300 mOsm/kg 03/08/2021 12:49 AM [facility] eGFR by CKD-EPI 55(L) >=90 mL/min/1.7 3 m2 03/08/2021 12:49 AM [facility] Blood BLOOD SPECIMEN / Unknown Venipuncture / Unknown 03/07/2021 11:57 PM CDT 03/08/2021 12:23 AM CDT Fredy Felipe MD LAB - CHEMISTRY JOSE ENRIQUE Pena Organization Address City/State/ZIP Co de Phone Number [facility] [address] [place] [address], [facility] [phone] * (ABNORMAL) BLOOD GASES ART + COOX PANEL (03/07/2021 11:57 PM CDT) pH Arterial 7.50(H) 7.35 - 7.45 pH 03/08/2021 12:17 AM [facility] pO2 Arterial 183(H) 80 - 100 mmHg 03/08/2021 12:17 AM [facility] pCO2 Arterial 25(L) 35 - 45 mmHg 12:17 AM [facility] HCO3 Arterial 20 20 - 30 mmol/l 03/08/2021 12:17 AM [facility] BE Arterial -2.6(L) -2.0 - 2.0 mmol/L 03/08/2021 12:17 AM [facility] Oxyhemoglobin Arterial 96.5 % 03/08/2021 12:17 AM [facility] Dexoyhemoglobin (HHB) % 0.0 % 03/08/2021 12:17 AM [facility] Methemoglobin 1.1 0.0 - 2.0 % 03/08/2021 12:17 AM [facility] Carboxyhemoglobin 2.4(H) 0.0 - 2.0 % 2020 12:17 AM [facility] O2 Content Arterial 14.5 Interpret within clinical context mg/dL 03/08/2021 12:17 AM [facility] Hemoglobin by COOX 10.4(L) 12.0 - 17.6 g/dL 03/08/2021 12:17 AM [facility] O2 Saturation Arterial 100 90 - 100 % 03/08/2021 12:17 AM [facility] FI O2 Arterial 21.0 % 03/08/2021 12:17 AM [facility] Blood, arterial ARTERIAL BLOOD SPECIMEN / Unknown Arterial Puncture / Unknown 03/07/2021 11:57 PM CDT 03/08/2021 12:11 AM CDT Narrative [facility] - 03/08/2021 12:17 AM CDT Carboxyhemoglobin Normal Concentration: Non-smokers: 0-2%; Smokers: 0-9%; Toxic: >20% Fredy Felipe MD LAB - BLOOD GASES OR DERABLES Performing Organization Address [facility] Co de Phone Number [address] [address], [facility] [phone] * (ABNORMAL) PT-INR [facility] (03/07/2021 11:57 PM CDT) PT 16.5(H) 12.1 - 14.8 Seconds 03/08/2021 12:37 AM CDT [facility] INR 1.4 See Comment 03/08/2021 12:37 AM CDT [facility] Comment:The suggested therap eutic range for standard coumadin (warfarin) therapy is an INR of 2.0-3.0. For high-risk patients (Mechanical Mitral Valve Prosthesis, etc.), the suggested prophylactic therapeutic range is an INR of 2.5-3.5. Blood BLOOD SPECIMEN / Unknown Venipuncture / Unknown 03/07/2021 11:57 PM CDT 03/08/2021 12:20 AM CDT Fredy Felipe MD LAB - COAGULATION OR DERABLES Performing Organization Address City/[facility] Co de Phone Number [address] [address], [facility] [phone] * PHOSPHORUS BLOOD (03/07/2021 11:57 PM CDT) Phosphorus 3.0 2.8 - 5.1 mg/dL 03/08/2021 12:50 AM CDT [facility] Blood BLOOD SPECIMEN / Unknown Venipuncture / Unknown 03/07/2021 11:57 PM CDT 03/08/2021 12:23 AM CDT Fredy Felipe MD LAB - CHEMISTRY JOSE ENRIQUE VELA [facility] [address] [place] [address], [place] [phone] * MAGNESIUM BLOOD (03/07/2021 11:57 PM CDT) Pathologist [facility] Magnesium 2.1 1.6 - 2.6 mg/dL 03/08/2021 12:50 AM CDT [facility] Blood BLOOD SPECIMEN / Unknown Venipuncture / Unknown 03/07/2021 11:57 PM CDT 03/08/2021 12:23 AM CDT Fredy Felipe MD LAB - CHEMISTRY JOSE ENRIQUE VELA Performing Organization Address City/[facility]/ZIP Co de Phone Number [address] [address], [place] [phone] * (ABNORMAL) CALCIUM IONIZED WHOLE BLOOD (03/07/2021 11:57 PM CDT) Pathologist [facility] Calcium Ionized 1.15 mmol/L 03/08/2021 12:17 AM CDT [facility] pH 7.49(H) 7.35 - 7.45 pH 03/08/2021 12:17 AM CDT [facility] Ionized Calcium pH Adjusted 1.19 1.19 - 1.34 mmol/L 03/08/2021 12:17 AM CDT [facility] Blood BLOOD SPECIMEN / Unknown Venipuncture / Unknown 03/07/2021 11:57 PM CDT 03/08/2021 12:11 AM CDT Fredy Felipe MD LAB - CHEMISTRY JOSE ENRIQUE VELA [address] [address], [place] [phone] * XR CHEST 1VW PORTABLE (03/07/2021 4:51 AM CDT) Anatomical Region Laterality Modality Chest Radiographic Sera ging 03/07/2021 10:2 2 AM CDT Impressions 03/07/2021 2:51 PM CDT IMPRESSION: 1.Mild right midlung and lower lung atelectasis. Report drafted by Keo Hernandez M.D. (resident) Dr. NAOMY Yao MD, [facility] have personally reviewed and interpreted this examination/study. This report was electronically signed by NAOMY LAZO MD, [place] ??on 03/07/2021 2:51 PM . Narrative 03/07/2021 [...] Dr. NAOMY Yao MD, [facility] have personally reviewedand interpreted this examination/study. This report was electronically signed by NAOMY LAZO MD, [facility] on 03/07/2021 2:51 PM . Fredy Felipe MD DIAGNOSTIC IMAGING O RDERABLES * (ABNORMAL) CULTURE ANAEROBE (03/07/2021 2:41 AM CDT) Culture Heavy Prevotella bivia(A) [place] 03/11/2021 9:14 AM CDT [facility] Comment:Beta-lactamase posit elvira Microbiology ABDOMINAL ABSCESS / Unknown Collection / Unknown 03/07/2021 2:41 AM CDT 03/07/2021 2:45 AM CDT Dino Hudson PA-C LAB - MICROBIOLOG Y ORDERABLES Performing Organization Address City/[facility]/ZIP Co de Phone Number [facility] [address] [place] [address], [facility] [phone] * CULTURE FUNGUS OTHER+FUNGUS SMEAR (03/07/2021 2:41 AM CDT) Culture No fungus isolated [place] 03/31/2021 9:21 AM COMMUNITY FACILIT[facility] Fungus Stain No yeast or hyphae seen 03/31/2021 9:21 AM COMMUNITY FACILITATOR [facility] Microbiology ABDOMINAL ABSCESS / Unknown Collection / Unknown 03/07/2021 2:41 AM CDT 03/07/2021 2:45 AM CDT Dino Hudson PA-C LAB - MICROBIOLOG Y ORDERABLES Performing Organization Address City/[facility]/ZIP Co de Phone Number [facility] [address] [place] [address], [facility] [phone] * (ABNORMAL) CULTURE WOUND+GRAM STAIN (03/07/2021 2:41 AM CDT) Culture Heavy Staphylococcus lugdunensis(A) [place] 03/10/2021 7:16 AM CDT [facility] Culture Heavy Klebsiella (formerly Enterobacter) aerogenes(A) [place] 03/10/2021 7:16 AM CDT [facility] Culture Heavy Staphylococcus epidermidis(A) 03/10/2021 7:16 AM CDT [facility] Gram Stain Light Polymorphonuclear cells 03/10/2021 7:16 AM CDT [facility] Gram Stain Light Gram-positive cocci in clusters 03/10/2021 7:16 AM CDT [facility] Gram Stain Moderate Gram-positive cocci pairs and chains 03/10/2021 7:16 AM CDT [facility] Microbiology ABDOMINAL ABSCESS / Unknown Collection / Unknown 03/07/2021 2:41 AM CDT 03/07/2021 2:45 AM CDT [facility] - 03/10/2021 7:16 AM CDT [...] Hudson PA-C LAB - MICROBIOLOG Y ORDERABLES [facility] [address] [place], [place] [address], [facility] [phone] * (ABNORMAL) BLOOD GASES ART + COOX PANEL (03/07/2021 12:29 AM [facility]) pH Arterial 7.51(H) 7.35 - 7.45 pH 03/07/2021 12:41 AM [facility] pO2 Arterial 161(H) 80 - 100 mmHg 03/07/2021 12:41 AM [facility] pCO2 Arterial 21(L) 35 - 45 mmHg 12:41 AM [facility] HCO3 Arterial 17(L) 20 - 30 mmol/l 03/07/2021 12:41 AM [facility] BE Arterial -4.5(L) -2.0 - 2.0 mmol/L 03/07/2021 12:41 AM [facility] Oxyhemoglobin Arterial 97.0 % 03/07/2021 12:41 AM [facility] Dexoyhemoglobin (HHB) % 0.1 % 03/07/2021 12:41 AM [facility] Methemoglobin 1.1 0.0 - 2.0 % 03/07/2021 12:41 AM [facility] Carboxyhemoglobin 1.8 0.0 - 2.0 % 2020 12:41 AM [facility] O2 Content Arterial 15.6 Interpret within clinical context mg/dL 03/07/2021 12:41 AM [facility] Hemoglobin by COOX 11.2(L) 12.0 - 17.6 g/dL 03/07/2021 12:41 AM [facility] O2 Saturation Arterial 100 90 - 100 % 03/07/2021 12:41 AM [facility] FI O2 Arterial 40.0 % 03/07/2021 12:41 AM [facility] Blood, arterial ARTERIAL BLOOD SPECIMEN / Unknown Arterial Puncture / Unknown 03/07/2021 12:29 AM CDT 03/07/2021 12:38 AM [facility] - 03/07/2021 12:41 AM CDT Carboxyhemoglobin Normal Concentration: Non-smokers: 0-2%; Smokers: 0-9%; Toxic: >20% Fredy Felipe MD LAB - BLOOD GASES OR DERABLES Performing Organization Address [facility] Co de Phone Number [address] [address], [facility] [phone] * (ABNORMAL) CALCIUM IONIZED WHOLE BLOOD (03/07/2021 12:29 AM CDT) [facility] Calcium Ionized 1.20 mmol/L 03/07/2021 12:41 AM CDT [facility] pH 7.51(H) 7.35 - 7.45 pH 03/07/2021 12:41 AM CDT [facility] Ionized Calcium pH Adjusted 1.26 1.19 - 1.34 mmol/L 03/07/2021 12:41 AM CDT [facility] Blood BLOOD SPECIMEN / Unknown Venipuncture / Unknown 03/07/2021 12:29 AM CDT 03/07/2021 12:38 AM CDT Fredy Felipe MD LAB - CHEMISTRY ORDE RABLES Performing Organization Address [facility] Co de Phone Number [address] [address], [facility] [phone] * (ABNORMAL) HEPATIC FUNCTION PANEL (03/06/2021 11:52 PM CDT) Pathologist [facility] Protein Total 7.4 6.0 - 8.3 g/dL 021 5:57 AM CDT [facility] Albumin 1.7(L) 3.4 - 5.0 g/dL 03/07/2021 5:57 AM CDT [facility] Bilirubin Total 0.9 0.2 - 1.2 mg/dL 02/15 5:57 AM CDT [facility] Bilirubin Conjugated 0.7(H) 0.1 - 0.5 mg/dL 03/07/2021 5:57 AM CDT [facility] Bilirubin Unconjugated 0.2 Unconjugated Bilirubin is a calculated value: Reference ranges have not been established. mg/dL 03/07/2021 5:57 AM [facility] Alkaline Phosphatase 302(H) 40 - 150 U/L 03/07/2021 5:57 AM [facility] ALT 80(H) 5 - 55 U/L 03/07/2021 5:57 AM [facility] AST 86(H) 5 - 34 U/L 03/07/2021 5:57 AM [facility] Albumin/Globulin Ratio 0.3(L) 1.1 - 2.3 03/07/2021 5:57 AM [facility] Blood BLOOD SPECIMEN / Unknown Venipuncture / Unknown 03/06/2021 11:52 PM CDT 03/06/2021 11:56 PM CDT Fredy Felipe MD LAB - CHEMISTRY JOSE ENRIQUE VELA [facility] Organization Address City/State/ZIP Co de Phone Number [facility] [address] [place] [address], [facility] [phone] * (ABNORMAL) DIFFERENTIAL MANUAL (03/06/2021 11:52 PM CDT) WBC (corrected for NRBC) 22.9 10? 3 /uL 03/07/2021 1:27 AM [facility] Total Cell Count 100 03/07/2021 1:27 AM [facility] Neutrophils Absolute Manual 18.78(H) 1.60 - 7.00 10? 3 /uL 03/07/2021 1:27 AM [facility] Comment:(BANDS+SEGS) x WBC = NEUT # (ANC) Lymphocyte Absolute Manual 1.60 1.10 - 3.90 10? 3 /uL 03/07/2021 1:27 AM [facility] Monocytes Absolute Manual 2.06(H) 0.26 - 1.07 10? 3 /uL 03/07/2021 1:27 AM [facility] Eosinophils Absolute Manual 0.23 0.00 - 0.47 10? 3 /uL 03/07/2021 1:27 AM [facility] Basophil Absolute Manual 0.23(H) 0.00 - 0.08 10? 3 /uL 03/07/2021 1:27 AM [facility] Neutrophil % Manual 82(H) 35 - 70 % 03/07/2021 1:27 AM [facility] Lymphocyte % Manual 7(L) 20 - 43 % 03/07/2021 1:27 AM [facility] Monocytes % Manual 9 5 - 13 % 03/07/2021 1:27 AM [facility] Eosinophils % Manual 1 0 - 6 % 03/07/2021 1:27 AM [facility] Basophils % Manual 1 0 - 2 % 03/07/2021 1:27 AM [facility] Platelet Estimate Increased( A) Adequate 03/07/2021 1:27 AM [facility] RBC Morphology Normal 03/07/2021 1:27 AM [facility] Blood BLOOD SPECIMEN / Unknown Venipuncture / Unknown 03/06/2021 11:52 PM CDT 03/06/2021 11:56 PM CDT Fredy Felipe MD LAB - HEMATOLOGY ORD ERABLES [facility] [address] [place] [phone] [phone] * (ABNORMAL) CBC W AUTO DIFFERENTIAL (03/06/2021 11:52 PM CDT) WBC 22.9(H) 3.5 - 10.5 10? 3 /uL 03/07/2021 12:08 AM [facility] RBC 3.88(L) 4.30 - 5.70 10? 6 /uL 03/07/2021 12:08 AM [facility] Hemoglobin 10.3(L) 12.0 - 17.6 g/dL 03/07/2021 12:08 AM [facility] Hematocrit 33.4(L) 35.2 - 51.7 % 03/07/2021 12:08 AM [facility] MCV 86.1 80.7 - 98.3 fL 03/07/2021 12:08 AM [facility] MCH 26.5(L) 26.7 - 34.0 pg 03/07/2021 12:08 AM [facility] MCHC 30.8 30.8 - 35.9 g/dL 03/07/2021 12:08 AM [facility] Platelet Count 598(H) 150 - 400 10? 3 /uL 03/07/2021 12:08 AM [facility] Comment:Checked by periphera l smear. RDW-SD 43.4 36.0 - 50.0 fL 03/07/2021 12:08 AM [facility] RDW-CV 13.8 11.2 - 14.8 % 03/07/2021 12:08 AM [facility] MPV 9.1(L) 9.4 - 12.9 fL 03/07/2021 12:08 AM [facility] nRBC Absolute 0.00 0 10? 3 /uL 03/07/2021 12:08 AM [facility] nRBC Auto 0.0 0 /100 WBC 03/07/2021 12:08 AM [facility] Immature Platelet Fraction 0.9(L) 1.1 - 6.2 % 03/07/2021 12:08 AM [facility] Blood BLOOD SPECIMEN / Unknown Venipuncture / Unknown 03/06/2021 11:52 PM CDT 03/06/2021 11:56 PM CDT Fredy Felipe MD LAB - HEMATOLOGY ORD ERABLES Performing Organization Address City/[facility] Co de Phone Number [facility] [address] [place] [phone], [facility] [phone] * (ABNORMAL) BASIC METABOLIC PANEL (CALCIUM TOTAL) (03/06/2021 11:52 PM CDT) BUN 36(H) 7 - 26 mg/dL 03/07/2021 12:18 AM [facility] Creatinine 1.45(H) 0.71 - 1.16 mg/dL 03/07/2021 12:18 AM [facility] Sodium 141 136 - 145 mmol/L 03/07/2021 12:18 AM [facility] Potassium 4.0 3.5 - 4.5 mmol/L 03/07/2021 12:18 AM [facility] Chloride 111(H) 98 - 107 mmol/L 03/07/2021 12:18 AM [facility] CO2 17(L) 22 - 29 mmol/L 03/07/2021 12:18 AM [facility] Glucose 112 70 - 115 mg/dL 03/07/2021 12:18 AM [facility] Calcium 8.7 8.4 - 10.2 mg/dL 03/07/2021 12:18 AM [facility] Anion Gap 17 8 - 18 03/07/2021 12:18 AM [facility] BUN/Creatinine Ratio 25(H) 7 - 23 03/07/2021 12:18 AM [facility] Osmolality Calculated 301(H) 270 - 300 mOsm/kg 03/07/2021 12:18 AM [facility] eGFR by CKD-EPI 62(L) >=90 mL/min/1.7 3 m2 03/07/2021 12:18 AM [facility] Blood BLOOD SPECIMEN / Unknown Venipuncture / Unknown 03/06/2021 11:52 PM CDT 03/06/2021 11:56 PM CDT Fredy Felipe MD LAB - [facility]Y [facility] Organization Address [facility]/State/[facility] Co de Phone Number [facility] [address] [place] [address], [facility] [phone] * (ABNORMAL) PT-INR [facility] (03/06/2021 11:52 PM CDT) PT 15.2(H) 12.1 - 14.8 Seconds 03/07/2021 12:08 AM [facility] INR 1.2 See Comment 03/07/2021 12:08 AM [facility] Comment:The suggested therap eutic range for standard coumadin (warfarin) therapy is an INR of 2.0-3.0. For high-risk patients (Mechanical Mitral Valve Prosthesis, etc.), the suggested prophylactic therapeutic range is an INR of 2.5-3.5. Blood BLOOD SPECIMEN / Unknown Venipuncture / Unknown 03/06/2021 11:52 PM CDT 03/06/2021 11:56 PM CDT rFedy Felipe MD LAB - COAGULATION OR DERABLES Performing Organization Address City/[facility]/ZIP Co de Phone Number [address] [address], [facility] [phone] * PHOSPHORUS BLOOD (03/06/2021 11:52 PM CDT) Phosphorus 3.1 2.8 - 5.1 mg/dL 03/07/2021 12:18 AM CDT [facility] Blood BLOOD SPECIMEN / Unknown Venipuncture / Unknown 03/06/2021 11:52 PM CDT 03/06/2021 11:56 PM CDT Fredy Felipe MD LAB - CHEMISTRY JOSE ENRIQUE VELA Performing Organization Address City/[facility]/ZIP Co de Phone Number [address] [address], [place] [phone] * MAGNESIUM BLOOD (03/06/2021 11:52 PM CDT) Magnesium 2.3 1.6 - 2.6 mg/dL 03/07/2021 12:18 AM CDT [facility] Blood BLOOD SPECIMEN / Unknown Venipuncture / Unknown 03/06/2021 11:52 PM CDT 03/06/2021 11:56 PM CDT Fredy Felipe MD LAB - CHEMISTRY JOSE ENRIQUE VELA Performing Organization Address [facility]/ZIP Co de Phone Number [address] [address], [place] [phone] * CT ABDOMEN PELVIS W CONTRAST (03/06/2021 [...] Dr. NAOMY LAZO MD, [facility] have personally reviewed and interpreted this examination/study. This report was electronically signed by NAOMY LAZO MD, [facility] ??on 03/07/2021 8:28 AM . Narrative 03/07/2021 [...] UA Yellow Straw, Yellow 03/06/2021 5:45 PM [facility] Clarity UA Slt Cloudy(A) Clear 03/06/2021 5:45 PM [facility] Specific [place] UA 1.020 1.005 - 1.030 03/06/2021 5:45 PM [facility] pH UA 6.0 5.0 - 8.0 pH 03/06/2021 5:45 PM [facility] Protein UA 2+(A) Negative 03/06/2021 5:45 PM [facility] Glucose UA Negative Negative 03/06/2021 5:45 PM [facility] Ketone UA Negative Negative 03/06/2021 5:45 PM [facility] Bilirubin UA Negative Negative 03/06/2021 5:45 PM [facility] Blood UA 2+(A) Negative 03/06/2021 5:45 PM [facility] Nitrite UA Negative Negative 03/06/2021 5:45 PM [facility] Leukocyte Esterase Trace(A) Negative 03/06/2021 5:45 PM [facility] Urobilinogen UA Negative Negative mg/dL 03/06/2021 5:45 PM [facility] RBC UA 11-20(A) None Seen, 0-2, 3-5 /HPF 03/06/2021 5:45 PM [facility] WBC UA 21-50(A) None Seen, 0-5 /HPF 03/06/2021 5:45 PM [facility] Bacteria UA Trace(A) None /HPF 03/06/2021 5:45 PM [facility] Yeast Budding UA Few(A) None /HPF 03/06/20 5:45 PM [facility] [facility] Squamous Epithelial Cells UA 0-2 None Seen, 0-2, 3-5 /HPF 03/06/2021 5:45 PM [facility] Mucus UA 1+ /LPF 03/06/2021 5:45 PM [facility] RBC Casts UA 0-2(A) None Seen /LPF 03/06/2021 5:45 PM [facility] Granular Casts UA 3-5(A) None Seen /LPF 03/06/2021 5:45 PM CDT [facility] Urine URINE SPECIMEN OBTAINED VIA [facility] / Unknown Collection / Unknown 03/06/2021 5:11 PM CDT 03/06/2021 5:19 PM CDT Narrative [facility] - 03/06/2021 5:45 PM CDT Fredy Felipe MD LAB - URINALYSIS ORD ERABLES [facility] [address] [place] [address], [facility] [phone] * XR CHEST 1VW PORTABLE (03/06/2021 4:07 [...] 25.2 10? 3 /uL 03/06/2021 2:40 AM [facility] Total Cell Count 100 03/06/2021 2:40 AM [facility] Neutrophils Absolute Manual 23.18(H) 1.60 - 7.00 10? 3 /uL 03/06/2021 2:40 AM [facility] Comment:(BANDS+SEGS) x WBC = NEUT # (ANC) Lymphocyte Absolute Manual 0.50(L) 1.10 - 3.90 10? 3 /uL 03/06/2021 2:40 AM [facility] Monocytes Absolute Manual 1.01 0.26 - 1.07 10? 3 /uL 03/06/2021 2:40 AM [facility] Eosinophils Absolute Manual 0.50(H) 0.00 - 0.47 10? 3 /uL 03/06/2021 2:40 AM [facility] Neutrophil % Manual 92(H) 35 - 70 % 03/06/2021 2:40 AM [facility] Lymphocyte % Manual 2(L) 20 - 43 % 03/06/2021 2:40 AM [facility] Monocytes % Manual 4(L) 5 - 13 % 03/06/2021 2:40 AM [facility] Eosinophils % Manual 2 0 - 6 % 03/06/2021 2:40 AM [facility] Platelet Estimate Increased( A) Adequate 03/06/2021 2:40 AM [facility] Comment:Platelets are clumpe d on smear but appear increased. RBC Morphology Normal 03/06/2021 2:40 AM [facility] Blood BLOOD SPECIMEN / Unknown Venipuncture / Unknown 03/06/2021 1:01 AM CDT 03/06/2021 1:16 AM CDT Fredy Felipe MD LAB - HEMATOLOGY ORD ERABLES [facility] [address] [place] [address], [facility] [phone] * (ABNORMAL) CBC W AUTO DIFFERENTIAL (03/06/2021 1:01 AM CDT) WBC 25.2(H) 3.5 - 10.5 10? 3 /uL 03/06/2021 1:36 AM [facility] RBC 3.56(L) 4.30 - 5.70 10? 6 /uL 03/06/2021 1:36 AM [facility] Hemoglobin 9.8(L) 12.0 - 17.6 g/dL 03/06/2021 1:36 AM [facility] Hematocrit 31.4(L) 35.2 - 51.7 % 03/06/2021 1:36 AM [facility] MCV 88.2 80.7 - 98.3 fL 03/06/2021 1:36 AM [facility] MCH 27.5 26.7 - 34.0 pg 03/06/2021 1:36 AM [facility] MCHC 31.2 30.8 - 35.9 g/dL 03/06/2021 1:36 AM [facility] Platelet Count 633(H) 150 - 400 10? 3 /uL 03/06/2021 1:36 AM [facility] RDW-SD 45.5 36.0 - 50.0 fL 03/06/2021 1:36 AM [facility] RDW-CV 14.0 11.2 - 14.8 % 03/06/2021 1:36 AM [facility] MPV 9.0(L) 9.4 - 12.9 fL 03/06/2021 1:36 AM [facility] nRBC Absolute 0.00 0 10? 3 /uL 03/06/2021 1:36 AM [facility] nRBC Auto 0.0 0 /100 WBC 03/06/2021 1:36 AM CDT [facility] Blood BLOOD SPECIMEN / Unknown Venipuncture / Unknown 03/06/2021 1:01 AM CDT 03/06/2021 1:16 AM CDT Fredy Felipe MD LAB - HEMATOLOGY ORD ERABLES [facility] [address] [place] [address], [place] [phone] * (ABNORMAL) TRIGLYCERIDES BLOOD (03/06/2021 12:06 AM CDT) Triglycerides 263(H) <150 mg/dL 03/06/2021 12:50 AM CDT [facility] Comment: ATP III Classification of Triglycerides: ?<150 mg/dL: ??Normal ? 150 - 199 mg/dL: ??Borderline High ? 200 - 400 mg/dL: ??High ?>500 mg/dL: ??Very High Blood BLOOD SPECIMEN / Unknown Venipuncture / Unknown 03/06/2021 12:06 AM CDT 03/06/2021 12:25 AM CDT Kelvin Stewart MD LAB - CHEMISTRY ORD ERABLES [facility] [address] [place] [address], [facility] [phone] * (ABNORMAL) BASIC METABOLIC PANEL (CALCIUM TOTAL) (03/06/2021 12:06 AM CDT) BUN 31(H) 7 - 26 mg/dL 03/06/2021 12:50 AM CDT [facility] Creatinine 1.42(H) 0.71 - 1.16 mg/dL 03/06/2021 12:50 AM CDT [facility] Sodium 142 136 - 145 mmol/L 03/06/2021 12:50 AM CDT [facility] Potassium 4.0 3.5 - 4.5 mmol/L 03/06/2021 12:50 AM [facility] Chloride 111(H) 98 - 107 mmol/L 03/06/2021 12:50 AM [facility] CO2 19(L) 22 - 29 mmol/L 03/06/2021 12:50 AM [facility] Glucose 124(H) 70 - 115 mg/dL 03/06/2021 12:50 AM [facility] Calcium 8.8 8.4 - 10.2 mg/dL 03/06/2021 12:50 AM [facility] Anion Gap 16 8 - 18 03/06/2021 12:50 AM [facility] BUN/Creatinine Ratio 22 7 - 23 03/06/2021 12:50 AM [facility] Osmolality Calculated 302(H) 270 - 300 mOsm/kg 03/06/2021 12:50 AM [facility] eGFR by CKD-EPI 64(L) >=90 mL/min/1.7 3 m2 03/06/2021 12:50 AM [facility] Blood BLOOD SPECIMEN / Unknown Venipuncture / Unknown 03/06/2021 12:06 AM CDT 03/06/2021 12:25 AM T Fredy Felipe MD LAB - [facility] Organization Address City/State/ZIP Co de Phone Number [facility] [address] [place] [address], [facility] [phone] * (ABNORMAL) BLOOD GASES ART + COOX PANEL (03/06/2021 12:06 AM CDT) pH Arterial 7.42 7.35 - 7.45 pH 03/06/2021 12:36 AM [facility] pO2 Arterial 189(H) 80 - 100 mmHg 03/06/2021 12:36 AM [facility] pCO2 Arterial 30(L) 35 - 45 mmHg 12:36 AM [facility] HCO3 Arterial 20 20 - 30 mmol/l 03/06/2021 12:36 AM [facility] BE Arterial -4.1(L) -2.0 - 2.0 mmol/L 03/06/2021 12:36 AM [facility] Oxyhemoglobin Arterial 97.2 % 03/06/2021 12:36 AM [facility] Dexoyhemoglobin (HHB) % 0.0 % 03/06/2021 12:36 AM [facility] Methemoglobin <0.8 0.0 - 2.0 % 03/06/2021 12:36 AM [facility] Carboxyhemoglobin 2.4(H) 0.0 - 2.0 % 2020 12:36 AM [facility] O2 Content Arterial 15.1 Interpret within clinical context mg/dL 03/06/2021 12:36 AM [facility] Hemoglobin by COOX 10.7(L) 12.0 - 17.6 g/dL 03/06/2021 12:36 AM [facility] O2 Saturation Arterial 100 90 - 100 % 03/06/2021 12:36 AM [facility] FI O2 Arterial 80.0 % 03/06/2021 12:36 AM [facility] Blood, arterial ARTERIAL BLOOD SPECIMEN / Unknown Arterial Puncture / Unknown 03/06/2021 12:06 AM T 03/06/2021 12:22 AM [facility] - 03/06/2021 12:36 AM [facility] Carboxyhemoglobin Normal Concentration: Non-smokers: 0-2%; Smokers: 0-9%; Toxic: >20% Fredy Felipe MD LAB - BLOOD GASES OR DERABLES [facility] [address] [place] [address], [facility] [phone] * (ABNORMAL) PT-INR [facility] (03/06/2021 12:06 AM [facility]) PT 15.7(H) 12.1 - 14.8 Seconds 03/06/2021 12:43 AM [facility] INR 1.3 See Comment 03/06/2021 12:43 AM [facility] Comment:The suggested therap eutic range for standard coumadin (warfarin) therapy is an INR of 2.0-3.0. For high-risk patients (Mechanical Mitral Valve Prosthesis, etc.), the suggested prophylactic therapeutic range is an INR of 2.5-3.5. Blood BLOOD SPECIMEN / Unknown Venipuncture / Unknown 03/06/2021 12:06 AM CDT 03/06/2021 12:22 AM CDT Fredy Felipe MD LAB - COAGULATION OR DERABLES Performing Organization Address [facility]/ZIP Co de Phone Number [address] [address], [place] [phone] * PHOSPHORUS BLOOD (03/06/2021 12:06 AM CDT) Phosphorus 3.3 2.8 - 5.1 mg/dL 03/06/2021 12:50 AM CDT [facility] Blood BLOOD SPECIMEN / Unknown Venipuncture / Unknown 03/06/2021 12:06 AM CDT 03/06/2021 12:25 AM CDT Fredy Felipe MD LAB - CHEMISTRY JOSE ENRIQUE VELA Performing Organization Address [facility] Co de Phone Number [address] [address], [place] [phone] * MAGNESIUM BLOOD (03/06/2021 12:06 AM CDT) Magnesium 2.1 1.6 - 2.6 mg/dL 03/06/2021 12:50 AM CDT [facility] Blood BLOOD SPECIMEN / Unknown Venipuncture / Unknown 03/06/2021 12:06 AM CDT 03/06/2021 12:25 AM CDT Fredy Felipe MD LAB - CHEMISTRY JOSE ENRIQUE VELA Performing Organization Address [facility]/ZIP Co de Phone Number [address] [address], [place] [phone] * (ABNORMAL) CALCIUM IONIZED WHOLE BLOOD (03/06/2021 12:06 AM CDT) Calcium Ionized 1.12 mmol/L 03/06/2021 12:40 AM CDT [facility] pH 7.43 7.35 - 7.45 pH 03/06/2021 12:40 AM CDT [facility] Ionized Calcium pH Adjusted 1.13(L) 1.19 - 1.34 mmol/L 03/06/2021 12:40 AM CDT [facility] Blood BLOOD SPECIMEN / Unknown Venipuncture / Unknown 03/06/2021 12:06 AM CDT 03/06/2021 12:22 AM CDT Fredy Felipe MD LAB - CHEMISTRY JOSE ENRIQUE VELA [facility] Organization Address City/State/ZIP Co de Phone Number [facility] [address] [place] [address], [facility] [phone] * XR CHEST 1VW PORTABLE (03/05/2021 4:54 [...] 22.9 10? 3 /uL 03/05/2021 12:32 AM [facility] Total Cell Count 100 03/05/2021 12:32 AM [facility] Neutrophils Absolute Manual 19.47(H) 1.60 - 7.00 10? 3 /uL 03/05/2021 12:32 AM [facility] Comment:(BANDS+SEGS) x WBC = NEUT # (ANC) Lymphocyte Absolute Manual 1.15 1.10 - 3.90 10? 3 /uL 03/05/2021 12:32 AM [facility] Monocytes Absolute Manual 1.83(H) 0.26 - 1.07 10? 3 /uL 03/05/2021 12:32 AM [facility] Eosinophils Absolute Manual 0.46 0.00 - 0.47 10? 3 /uL 03/05/2021 12:32 AM [facility] Neutrophil % Manual 85(H) 35 - 70 % 03/05/2021 12:32 AM [facility] Lymphocyte % Manual 5(L) 20 - 43 % 03/05/2021 12:32 AM [facility] Monocytes % Manual 8 5 - 13 % 03/05/2021 12:32 AM [facility] Eosinophils % Manual 2 0 - 6 % 03/05/2021 12:32 AM [facility] Platelet Estimate Increased( A) Adequate 03/05/2021 12:32 AM [facility] RBC Morphology Normal 03/05/2021 12:32 AM [facility] Blood BLOOD SPECIMEN / Unknown Venipuncture / Unknown 03/04/2021 11:48 PM CDT 03/04/2021 11:53 PM CDT Fredy Felipe MD LAB - HEMATOLOGY ORD ERABLES Performing Organization Address City/State/[facility] Co de Phone Number [facility] [address] [place] [address] [phone] * (ABNORMAL) CBC W AUTO DIFFERENTIAL (03/04/2021 11:48 PM CDT) WBC 22.9(H) 3.5 - 10.5 10? 3 /uL 03/05/2021 12:06 AM [facility] RBC 3.89(L) 4.30 - 5.70 10? 6 /uL 03/05/2021 12:06 AM [facility] Hemoglobin 10.7(L) 12.0 - 17.6 g/dL 03/05/2021 12:06 AM [facility] Hematocrit 33.9(L) 35.2 - 51.7 % 03/05/2021 12:06 AM [facility] MCV 87.1 80.7 - 98.3 fL 03/05/2021 12:06 AM [facility] MCH 27.5 26.7 - 34.0 pg 03/05/2021 12:06 AM [facility] MCHC 31.6 30.8 - 35.9 g/dL 03/05/2021 12:06 AM [facility] Platelet Count 712(H) 150 - 400 10? 3 /uL 03/05/2021 12:06 AM [facility] RDW-SD 44.3 36.0 - 50.0 fL 03/05/2021 12:06 AM [facility] RDW-CV 14.0 11.2 - 14.8 % 03/05/2021 12:06 AM [facility] MPV 8.9(L) 9.4 - 12.9 fL 03/05/2021 12:06 AM [facility] nRBC Absolute 0.00 0 10? 3 /uL 03/05/2021 12:06 AM [facility] nRBC Auto 0.0 0 /100 WBC 03/05/2021 12:06 AM [facility] Immature Platelet Fraction 1.2 1.1 - 6.2 % 03/05/2021 12:06 AM [facility] Blood BLOOD SPECIMEN / Unknown Venipuncture / Unknown 03/04/2021 11:48 PM CDT 03/04/2021 11:53 PM CDT Fredy Felipe MD LAB - HEMATOLOGY ORD ERABLES [facility] [address] [place] [phone], [facility] [phone] * (ABNORMAL) BASIC METABOLIC PANEL (CALCIUM TOTAL) (03/04/2021 11:48 PM CDT) BUN 27(H) 7 - 26 mg/dL 03/05/2021 12:16 AM [facility] Creatinine 1.27(H) 0.71 - 1.16 mg/dL 03/05/2021 12:16 AM [facility] Sodium 142 136 - 145 mmol/L 03/05/2021 12:16 AM [facility] Potassium 3.9 3.5 - 4.5 mmol/L 03/05/2021 12:16 AM [facility] Chloride 111(H) 98 - 107 mmol/L 03/05/2021 12:16 AM [facility] CO2 19(L) 22 - 29 mmol/L 03/05/2021 12:16 AM [facility] Glucose 116(H) 70 - 115 mg/dL 03/05/2021 12:16 AM [facility] Calcium 9.2 8.4 - 10.2 mg/dL 03/05/2021 12:16 AM [facility] Anion Gap 16 8 - 18 03/05/2021 12:16 AM [facility] BUN/Creatinine Ratio 21 7 - 23 03/05/2021 12:16 AM [facility] Osmolality Calculated 300 270 - 300 mOsm/kg 03/05/2021 12:16 AM [facility] eGFR by CKD-EPI 73(L) >=90 mL/min/1.7 3 m2 03/05/2021 12:16 AM [facility] Blood BLOOD SPECIMEN / Unknown Venipuncture / Unknown 03/04/2021 11:48 PM CDT 03/04/2021 11:53 PM CDT Fredy Felipe MD LAB - CHEMISTRY JOSE ENRIQUE VELA [facility] Organization Address City/State/ZIP Co de Phone Number [facility] [address] [place] [address], [facility] [phone] * (ABNORMAL) BLOOD GASES ART + COOX PANEL (03/04/2021 11:48 PM CDT) pH Arterial 7.46(H) 7.35 - 7.45 pH 03/04/2021 11:57 PM [facility] pO2 Arterial 190(H) 80 - 100 mmHg 03/04/2021 11:57 PM [facility] pCO2 Arterial 28(L) 35 - 45 mmHg 11:57 PM [facility] HCO3 Arterial 20 20 - 30 mmol/l 03/04/2021 11:57 PM [facility] BE Arterial -2.9(L) -2.0 - 2.0 mmol/L 03/04/2021 11:57 PM [facility] Oxyhemoglobin Arterial 96.4 % 03/04/2021 11:57 PM [facility] Dexoyhemoglobin (HHB) % 0.5 % 03/04/2021 11:57 PM [facility] Methemoglobin 0.8 0.0 - 2.0 % 03/04/2021 11:57 PM [facility] Carboxyhemoglobin 2.3(H) 0.0 - 2.0 % 2020 11:57 PM [facility] O2 Content Arterial 16.4 Interpret within clinical context mg/dL 03/04/2021 11:57 PM [facility] Hemoglobin by COOX 11.8(L) 12.0 - 17.6 g/dL 03/04/2021 11:57 PM CDT [facility] O2 Saturation Arterial 100 90 - 100 % 03/04/2021 11:57 PM CDT [facility] FI O2 Arterial 40.0 % 03/04/2021 11:57 PM CDT [facility] Blood, arterial ARTERIAL BLOOD SPECIMEN / Unknown Arterial Puncture / Unknown 03/04/2021 11:48 PM CDT 03/04/2021 11:53 PM CDT Narrative [facility] - 03/04/2021 11:57 PM CDT Carboxyhemoglobin Normal Concentration: Non-smokers: 0-2%; Smokers: 0-9%; Toxic: >20% Fredy Felipe MD LAB - BLOOD GASES OR DERABLES Performing Organization Address [facility] Co de Phone Number [address] [address], [place] [phone] * (ABNORMAL) PT-INR [facility] (03/04/2021 11:48 PM CDT) PT 15.1(H) 12.1 - 14.8 Seconds 03/05/2021 12:12 AM CDT [facility] INR 1.2 See Comment 03/05/2021 12:12 AM T [facility] Comment:The suggested therap eutic range for standard coumadin (warfarin) therapy is an INR of 2.0-3.0. For high-risk patients (Mechanical Mitral Valve Prosthesis, etc.), the suggested prophylactic therapeutic range is an INR of 2.5-3.5. Blood BLOOD SPECIMEN / Unknown Venipuncture / Unknown 03/04/2021 11:48 PM CDT 03/04/2021 11:53 PM CDT Fredy Felipe MD LAB - COAGULATION OR DERABLES Performing Organization Address [facility] Co de Phone Number [address] [address], [place] [phone] * PHOSPHORUS BLOOD (03/04/2021 11:48 PM CDT) Phosphorus 3.2 2.8 - 5.1 mg/dL 03/05/2021 12:16 AM CDT [facility] Blood BLOOD SPECIMEN / Unknown Venipuncture / Unknown 03/04/2021 11:48 PM CDT 03/04/2021 11:53 PM CDT Fredy Felipe MD LAB - CHEMISTRY JOSE ENRIQUE VELA Performing Organization Address City/[facility]/ZIP Co de Phone Number [address] [address], [facility] [phone] * MAGNESIUM BLOOD (03/04/2021 11:48 PM CDT) Magnesium 2.2 1.6 - 2.6 mg/dL 03/05/2021 12:16 AM CDT [facility] Blood BLOOD SPECIMEN / Unknown Venipuncture / Unknown 03/04/2021 11:48 PM CDT 03/04/2021 11:53 PM CDT Fredy Felipe MD LAB - CHEMISTRY JOSE ENRIQUE VELA Performing Organization Address City/[facility]/ZIP Co de Phone Number [address] [address], [facility] [phone] * (ABNORMAL) CALCIUM IONIZED WHOLE BLOOD (03/04/2021 11:48 PM CDT) Pathologist [facility] Calcium Ionized 1.22 mmol/L 03/04/2021 11:57 PM CDT [facility] pH 7.47(H) 7.35 - 7.45 pH 03/04/2021 11:57 PM CDT [facility] Ionized Calcium pH Adjusted 1.26 1.19 - 1.34 mmol/L 03/04/2021 11:57 PM CDT [facility] Blood BLOOD SPECIMEN / Unknown Venipuncture / Unknown 03/04/2021 11:48 PM CDT 03/04/2021 11:53 PM CDT Fredy Felipe MD LAB - CHEMISTRY JOSE ENRIQUE VELA [facility] [address] [place] [address], [facility] [phone] * CULTURE MRSA (03/04/2021 12:43 PM CDT) Culture Negative for methicillin-resist ant Staphylococcus aureus (MRSA) [place] 03/05/2021 8:38 PM CDT [facility] Microbiology SPECIMEN FROM NASAL FOSSAE / Unknown Collection / Unknown 03/04/2021 12:43 PM CDT 03/04/2021 12:52 PM CDT Kelvin Stewart MD LAB - MICROBIOLOGY ORDERABLES Performing Organization Address [facility] Co de Phone Number [facility] [address] [place] [address], [facility] [phone] * CULTURE SPUTUM+GRAM STAIN (03/04/2021 5:47 AM CDT) Culture Light normal oropharyngeal zi [place]ISTA 03/06/2021 6:42 AM CDT [facility] Gram Stain <10 per low power field Squamous epithelial cells 03/06/2021 6:42 AM CDT [facility] Gram Stain >= 25 per low power field Polymorphonuclear cells 03/06/2021 6:42 AM CDT [facility] Gram Stain Rare Gram-positive cocci 03/06/2021 6:42 AM CDT [facility] MICROBIOLOG[facility] Microbiology SPUTUM / Unknown Collection / Unknown 03/04/2021 5:47 AM CDT 03/04/2021 5:50 AM CDT Fredy Felipe MD LAB - MICROBIOLOGY O RDERABLES Performing Organization Address City/[facility]/ZIP Co de Phone Number [facility] [address] [place] [address], [facility] [phone] * XR CHEST 1VW PORTABLE (03/04/2021 5:27 [...] is normal. Dictated by Alex Verdugo MD (executive assistant to president). Dr. OSWALDO Yao have personally reviewed and [...] is normal. Dictated by Alex Verdugo MD (executive assistant to president). Dr. OSWALDO Yao have personally reviewed and interpreted this examination/study. This report was electronically signed by OSWALDO CLEMONS on 03/04/2021 4:04 PM . Fredy Felipe MD DIAGNOSTIC IMAGING O RDERABLES * (ABNORMAL) DIFFERENTIAL MANUAL (03/04/2021 1:04 AM CDT) WBC (corrected for NRBC) 20.3 10? 3 /uL 03/04/2021 1:46 AM [facility] Total Cell Count 100 03/04/2021 1:46 AM [facility] Neutrophils Absolute Manual 17.66(H) 1.60 - 7.00 10? 3 /uL 03/04/2021 1:46 AM [facility] Comment:(BANDS+SEGS) x WBC = NEUT # (ANC) Lymphocyte Absolute Manual 0.81(L) 1.10 - 3.90 10? 3 /uL 03/04/2021 1:46 AM [facility] Monocytes Absolute Manual 1.02 0.26 - 1.07 10? 3 /uL 03/04/2021 1:46 AM [facility] Eosinophils Absolute Manual 0.61(H) 0.00 - 0.47 10? 3 /uL 03/04/2021 1:46 AM [facility] Neutrophil % Manual 87(H) 35 - 70 % 03/04/2021 1:46 AM [facility] Lymphocyte % Manual 4(L) 20 - 43 % 03/04/2021 1:46 AM [facility] Monocytes % Manual 5 5 - 13 % 03/04/2021 1:46 AM [facility] Eosinophils % Manual 3 0 - 6 % 03/04/2021 1:46 AM [facility] Atypical Lymphocyte % Manual 1(H) 0 % 03/04/2021 1:46 AM [facility] Platelet Estimate Increased( A) Adequate 03/04/2021 1:46 AM [facility] Comment:Platelet clumpled on the smear but appear increased RBC Morphology Normal 03/04/2021 1:46 AM [facility] Blood BLOOD SPECIMEN / Unknown Venipuncture / Unknown 03/04/2021 1:04 AM CDT 03/04/2021 1:16 AM CDT Fredy Felipe MD LAB - HEMATOLOGY ORD ERABLES [facility] [address] [place] [address], [facility] [phone] * (ABNORMAL) CBC W AUTO DIFFERENTIAL (03/04/2021 1:04 AM CDT) Pathologist [facility] WBC 20.3(H) 3.5 - 10.5 10? 3 /uL 03/04/2021 1:21 AM [facility] RBC 3.97(L) 4.30 - 5.70 10? 6 /uL 03/04/2021 1:21 AM [facility] Hemoglobin 10.7(L) 12.0 - 17.6 g/dL 03/04/2021 1:21 AM [facility] Hematocrit 33.9(L) 35.2 - 51.7 % 03/04/2021 1:21 AM [facility] MCV 85.4 80.7 - 98.3 fL 03/04/2021 1:21 AM [facility] MCH 27.0 26.7 - 34.0 pg 03/04/2021 1:21 AM [facility] MCHC 31.6 30.8 - 35.9 g/dL 03/04/2021 1:21 AM [facility] Platelet Count 665(H) 150 - 400 10? 3 /uL 03/04/2021 1:21 AM [facility] RDW-SD 43.2 36.0 - 50.0 fL 03/04/2021 1:21 AM [facility] RDW-CV 13.7 11.2 - 14.8 % 03/04/2021 1:21 AM [facility] MPV 8.8(L) 9.4 - 12.9 fL 03/04/2021 1:21 AM [facility] nRBC Absolute 0.00 0 10? 3 /uL 03/04/2021 1:21 AM [facility] nRBC Auto 0.0 0 /100 WBC 03/04/2021 1:21 AM [facility] Blood BLOOD SPECIMEN / Unknown Venipuncture / Unknown 03/04/2021 1:04 AM CDT 03/04/2021 1:16 AM T Fredy Felipe MD LAB - HEMATOLOGY ORD ERABLES [facility] [address] [id number], [facility] [phone] * (ABNORMAL) BASIC METABOLIC PANEL (CALCIUM TOTAL) (03/04/2021 1:04 AM [facility]) BUN 25 7 - 26 mg/dL 03/04/2021 1:40 AM [facility] Creatinine 1.28(H) 0.71 - 1.16 mg/dL 03/04/2021 1:40 AM [facility] Sodium 141 136 - 145 mmol/L 03/04/2021 1:40 AM [facility] Potassium 3.6 3.5 - 4.5 mmol/L 03/04/2021 1:40 AM [facility] Chloride 109(H) 98 - 107 mmol/L 03/04/2021 1:40 AM [facility] CO2 19(L) 22 - 29 mmol/L 03/04/2021 1:40 AM [facility] Glucose 117(H) 70 - 115 mg/dL 03/04/2021 1:40 AM [facility] Calcium 9.2 8.4 - 10.2 mg/dL 03/04/2021 1:40 AM [facility] Anion Gap 17 8 - 18 03/04/2021 1:40 AM [facility] BUN/Creatinine Ratio 20 7 - 23 03/04/2021 1:40 AM [facility] Osmolality Calculated 297 270 - 300 mOsm/kg 03/04/2021 1:40 AM [facility] eGFR by CKD-EPI 72(L) >=90 mL/min/1.7 3 m2 03/04/2021 1:40 AM [facility] Blood BLOOD SPECIMEN / Unknown Venipuncture / Unknown 03/04/2021 1:04 AM CDT 03/04/2021 1:16 AM [facility] Fredy Felipe MD LAB - CHEMISTRY JOSE ENRIQUE [facility] [address] [place] [address], [facility] [phone] * (ABNORMAL) BLOOD GASES ART + COOX PANEL (03/04/2021 1:04 AM [facility]) pH Arterial 7.43 7.35 - 7.45 pH 03/04/2021 1:17 AM [facility] pO2 Arterial 154(H) 80 - 100 mmHg 03/04/2021 1:17 AM [facility] pCO2 Arterial 32(L) 35 - 45 mmHg 1:17 AM [facility] HCO3 Arterial 21 20 - 30 mmol/l 03/04/2021 1:17 AM [facility] BE Arterial -2.4(L) -2.0 - 2.0 mmol/L 03/04/2021 1:17 AM [facility] Oxyhemoglobin Arterial 97.8 % 03/04/2021 1:17 AM [facility] Dexoyhemoglobin (HHB) % 0.3 % 03/04/2021 1:17 AM [facility] Methemoglobin 0.8 0.0 - 2.0 % 03/04/2021 1:17 AM [facility] Carboxyhemoglobin 1.2 0.0 - 2.0 % 2020 1:17 AM [facility] O2 Content Arterial 15.8 Interpret within clinical context mg/dL 03/04/2021 1:17 AM [facility] Hemoglobin by COOX 11.3(L) 12.0 - 17.6 g/dL 03/04/2021 1:17 AM [facility] O2 Saturation Arterial 100 90 - 100 % 03/04/2021 1:17 AM [facility] FI O2 Arterial 40.0 % 03/04/2021 1:17 AM [facility] Blood, arterial ARTERIAL BLOOD SPECIMEN / Unknown Arterial Puncture / Unknown 03/04/2021 1:04 AM T 03/04/2021 1:15 AM [facility] - 03/04/2021 1:17 AM [facility] Carboxyhemoglobin Normal Concentration: Non-smokers: 0-2%; Smokers: 0-9%; Toxic: >20% Fredy Felipe MD LAB - BLOOD GASES OR DERABLES Performing Organization Address [facility]/ZIP Co de Phone Number [facility] [address] [place] [address], [facility] [phone] * (ABNORMAL) PT-INR [facility] (03/04/2021 1:04 AM CDT) PT 15.0(H) 12.1 - 14.8 Seconds 03/04/2021 1:31 AM CDT [facility] INR 1.2 See Comment 03/04/2021 1:31 AM CDT [facility] Comment:The suggested therap eutic range for standard coumadin (warfarin) therapy is an INR of 2.0-3.0. For high-risk patients (Mechanical Mitral Valve Prosthesis, etc.), the suggested prophylactic therapeutic range is an INR of 2.5-3.5. Blood BLOOD SPECIMEN / Unknown Venipuncture / Unknown 03/04/2021 1:04 AM CDT 03/04/2021 1:12 AM CDT Fredy Felipe MD LAB - COAGULATION OR DERABLES Performing Organization Address [facility]/ZIP Co de Phone Number [address] [address], [facility] [phone] * PHOSPHORUS BLOOD (03/04/2021 1:04 AM CDT) Phosphorus 3.0 2.8 - 5.1 mg/dL 03/04/2021 1:40 AM CDT [facility] Blood BLOOD SPECIMEN / Unknown Venipuncture / Unknown 03/04/2021 1:04 AM CDT 03/04/2021 1:16 AM CDT Fredy Felipe MD LAB - CHEMISTRY ORDE RABLES Performing Organization Address [facility]/ZIP Co de Phone Number [facility] [address] [place] [address], [facility] [phone] * MAGNESIUM BLOOD (03/04/2021 1:04 AM CDT) Magnesium 2.1 1.6 - 2.6 mg/dL 03/04/2021 1:40 AM CDT [facility] Blood BLOOD SPECIMEN / Unknown Venipuncture / Unknown 03/04/2021 1:04 AM CDT 03/04/2021 1:16 AM CDT Fredy Felipe MD LAB - CHEMISTRY JOSE ENRIQUE VELA Performing Organization Address City/[facility]/ZIP Co de Phone Number [address] [address], [facility] [phone] * CALCIUM IONIZED WHOLE BLOOD (03/04/2021 1:04 AM CDT) Calcium Ionized 1.20 mmol/L 03/04/2021 1:19 AM CDT [facility] pH 7.41 7.35 - 7.45 pH 03/04/2021 1:19 AM CDT [facility] Ionized Calcium pH Adjusted 1.20 1.19 - 1.34 mmol/L 03/04/2021 1:19 AM CDT [facility] Blood BLOOD SPECIMEN / Unknown Venipuncture / Unknown 03/04/2021 1:04 AM CDT 03/04/2021 1:15 AM CDT Fredy Felipe MD LAB - CHEMISTRY JOSE ENRIQUE VELA Performing Organization Address [facility]/ZIP Co de Phone Number [address] [address], [place] [phone] * CULTURE BLOOD (03/03/2021 8:20 AM CDT) Culture No growth day 5 CALISTA 03/08/2021 2:00 PM CDT [facility] MICRO[facility]OLOG[facility] Blood PERIPHERAL BLOOD / Unknown Venipuncture / Unknown 03/03/2021 8:20 AM CDT 03/03/2021 8:46 AM CDT Fredy Felipe MD LAB - MICROBIOLOGY O RDERABLES [facility] MICROBI[facility] [address] [place] [id number] [place] [address] * CULTURE BLOOD (03/03/2021 8:00 AM CDT) Culture No growth day 5 CALISTA 03/08/2021 2:00 PM CDT [facility] MICROBIOLOGY Blood PERIPHERAL BLOOD / Unknown Venipuncture / Unknown 03/03/2021 8:00 AM CDT 03/03/2021 8:46 AM CDT Fredy Felipe MD LAB - MICROBIOLOGY O RDERABLES [facility] MICROBIOLOGY [address] [place] [address], [facility] [phone] * XR CHEST 1VW PORTABLE (03/03/2021 4:56 [...] DO (resident). I, Dr. NAOMY LAZO MD, [facility] have personally reviewed and interpreted this examination/study. This report was electronically signed by NAOMY LAOZ MD, FRCR ??on 03/03/2021 3:48 PM . [...] DO (resident). I, Dr. NAOMY LAZO MD, CR have personally reviewedand interpreted this examination/study. This report was electronically signed by NAOMY LAZO MD, FRCR on 03/03/2021 3:48 PM . Fredy Felipe MD DIAGNOSTIC IMAGING O RDERABLES * (ABNORMAL) DIFFERENTIAL MANUAL (03/02/2021 11:41 PM CDT) WBC (corrected for NRBC) 20.3 10? 3 /uL 03/03/2021 12:26 AM [facility] Total Cell Count 100 03/03/2021 12:26 AM [facility] Neutrophils Absolute Manual 17.26(H) 1.60 - 7.00 10? 3 /uL 03/03/2021 12:26 AM [facility] Comment:(BANDS+SEGS) x WBC = NEUT # (ANC) Lymphocyte Absolute Manual 1.22 1.10 - 3.90 10? 3 /uL 03/03/2021 12:26 AM [facility] Monocytes Absolute Manual 1.42(H) 0.26 - 1.07 10? 3 /uL 03/03/2021 12:26 AM [facility] Eosinophils Absolute Manual 0.41 0.00 - 0.47 10? 3 /uL 03/03/2021 12:26 AM [facility] Band % Manual 1 0 - 10 % 03/03/2021 12:26 AM [facility] Neutrophil % Manual 84(H) 35 - 70 % 03/03/2021 12:26 AM [facility] Lymphocyte % Manual 6(L) 20 - 43 % 03/03/2021 12:26 AM [facility] Monocytes % Manual 7 5 - 13 % 03/03/2021 12:26 AM [facility] Eosinophils % Manual 2 0 - 6 % 03/03/2021 12:26 AM [facility] Platelet Estimate Increased(A) Adequate 03/03/2021 12:26 AM [facility] RBC Morphology Normal 03/03/2021 12:26 AM [facility] Comment Platelet Platelet clumpled on the smear but appear increased. 03/03/2021 12:26 AM [facility] Blood BLOOD SPECIMEN / Unknown Venipuncture / Unknown 03/02/2021 11:41 PM CDT 03/02/2021 11:45 PM CDT Fredy Felipe MD LAB - HEMATOLOGY ORD ERABLES [facility] [address] [place] [address], [facility] [phone] * (ABNORMAL) TRIGLYCERIDES BLOOD (03/02/2021 11:41 PM CDT) Triglycerides 474(H) <150 mg/dL 03/03/2021 12:10 AM [facility] Comment: ATP III Classification of Triglycerides: ?<150 mg/dL: ??Normal ? 150 - 199 mg/dL: ??Borderline High ? 200 - 400 mg/dL: ??High ?>500 mg/dL: ??Very High Blood BLOOD SPECIMEN / Unknown Venipuncture / Unknown 03/02/2021 11:41 PM CDT 03/02/2021 11:45 PM CDT Kelvin Stewart MD LAB - CHEMISTRY ORD ERABLES [facility] [address] [place] [address], [facility] [phone] * (ABNORMAL) CBC W AUTO DIFFERENTIAL (03/02/2021 11:41 PM CDT) WBC 20.3(H) 3.5 - 10.5 10? 3 /uL 03/02/2021 11:50 PM CDT [facility] RBC 3.67(L) 4.30 - 5.70 10? 6 /uL 03/02/2021 11:50 PM T [facility] Hemoglobin 10.2(L) 12.0 - 17.6 g/dL 03/02/2021 11:50 PM T [facility] Hematocrit 32.0(L) 35.2 - 51.7 % 03/02/2021 11:50 PM T [facility] MCV 87.2 80.7 - 98.3 fL 03/02/2021 11:50 PM T [facility] MCH 27.8 26.7 - 34.0 pg 03/02/2021 11:50 PM T [facility] MCHC 31.9 30.8 - 35.9 g/dL 03/02/2021 11:50 PM T [facility] Platelet Count 623(H) 150 - 400 10? 3 /uL 03/02/2021 11:50 PM [facility] RDW-SD 43.9 36.0 - 50.0 fL 03/02/2021 11:50 PM [facility] RDW-CV 13.7 11.2 - 14.8 % 03/02/2021 11:50 PM [facility] MPV 8.6(L) 9.4 - 12.9 fL 03/02/2021 11:50 PM T [facility] nRBC Absolute 0.00 0 10? 3 /uL 03/02/2021 11:50 PM [facility] nRBC Auto 0.0 0 /100 WBC 03/02/2021 11:50 PM [facility] Blood BLOOD SPECIMEN / Unknown Venipuncture / Unknown 03/02/2021 11:41 PM CDT 03/02/2021 11:45 PM CDT Fredy Felipe MD LAB - HEMATOLOGY ORD TERESA Performing Organization Address [facility] Co de Phone Number [facility] [address] [place] [address], [facility] [phone] * (ABNORMAL) BASIC METABOLIC PANEL (CALCIUM TOTAL) (03/02/2021 11:41 PM CDT) BUN 19 7 - 26 mg/dL 03/03/2021 12:10 AM [facility] Creatinine 1.30(H) 0.71 - 1.16 mg/dL 03/03/2021 12:10 AM [facility] Sodium 142 136 - 145 mmol/L 03/03/2021 12:10 AM [facility] Potassium 3.7 3.5 - 4.5 mmol/L 03/03/2021 12:10 AM [facility] Chloride 108(H) 98 - 107 mmol/L 03/03/2021 12:10 AM [facility] CO2 21(L) 22 - 29 mmol/L 03/03/2021 12:10 AM [facility] Glucose 104 70 - 115 mg/dL 03/03/2021 12:10 AM [facility] Calcium 9.1 8.4 - 10.2 mg/dL 03/03/2021 12:10 AM [facility] Anion Gap 17 8 - 18 03/03/2021 12:10 AM [facility] BUN/Creatinine Ratio 15 7 - 23 03/03/2021 12:10 AM [facility] Osmolality Calculated 297 270 - 300 mOsm/kg 03/03/2021 12:10 AM [facility] eGFR by CKD-EPI 71(L) >=90 mL/min/1.7 3 m2 03/03/2021 12:10 AM [facility] Blood BLOOD SPECIMEN / Unknown Venipuncture / Unknown 03/02/2021 11:41 PM CDT 03/02/2021 11:45 PM CDT Fredy Felipe MD LAB - CHEMISTRY JOSE ENRIQUE VELA [facility] [address] [place] [address], [facility] [phone] * (ABNORMAL) BLOOD GASES ART + COOX PANEL (03/02/2021 11:41 PM T) pH Arterial 7.52(H) 7.35 - 7.45 pH 03/02/2021 11:46 PM [facility] pO2 Arterial 160(H) 80 - 100 mmHg 03/02/2021 11:46 PM [facility] pCO2 Arterial 29(L) 35 - 45 mmHg 11:46 PM [facility] HCO3 Arterial 24 20 - 30 mmol/l 03/02/2021 11:46 PM [facility] BE Arterial 1.4 -2.0 - 2.0 mmol/L 03/02/2021 11:46 PM [facility] Oxyhemoglobin Arterial 96.3 % 03/02/2021 11:46 PM [facility] Dexoyhemoglobin (HHB) % 0.1 % 03/02/2021 11:46 PM [facility] Methemoglobin 0.9 0.0 - 2.0 % 03/02/2021 11:46 PM [facility] Carboxyhemoglobin 2.7(H) 0.0 - 2.0 % 2020 11:46 PM [facility] O2 Content Arterial 15.2 Interpret within clinical context mg/dL 03/02/2021 11:46 PM [facility] Hemoglobin by COOX 11.0(L) 12.0 - 17.6 g/dL 03/02/2021 11:46 PM [facility] O2 Saturation Arterial 100 90 - 100 % 03/02/2021 11:46 PM [facility] FI O2 Arterial 40.0 % 03/02/2021 11:46 PM [facility] Blood, arterial ARTERIAL BLOOD SPECIMEN / Unknown Arterial Puncture / Unknown 03/02/2021 11:41 PM CDT 03/02/2021 11:44 PM [facility] - 03/02/2021 11:46 PM CDT Carboxyhemoglobin Normal Concentration: Non-smokers: 0-2%; Smokers: 0-9%; Toxic: >20% Fredy Felipe MD LAB - BLOOD GASES OR DERABLES [address] [address], [place] [phone] * PT-INR [facility] (03/02/2021 11:41 PM CDT) PT 14.8 12.1 - 14.8 Seconds 03/03/2021 1:38 AM CDT [facility] INR 1.2 See Comment 03/03/2021 1:38 AM CDT [facility] Comment:The suggested therap eutic range for standard coumadin (warfarin) therapy is an INR of 2.0-3.0. For high-risk patients (Mechanical Mitral Valve Prosthesis, etc.), the suggested prophylactic therapeutic range is an INR of 2.5-3.5. Blood BLOOD SPECIMEN / Unknown Venipuncture / Unknown 03/02/2021 11:41 PM CDT 03/02/2021 11:52 PM CDT Fredy Felipe MD LAB - COAGULATION OR DERABLES Performing Organization Address City/[facility]/ZIP Co de Phone Number [address] [address], [place] [phone] * PHOSPHORUS BLOOD (03/02/2021 11:41 PM CDT) Phosphorus 4.0 2.8 - 5.1 mg/dL 03/03/2021 12:10 AM CDT [facility] Blood BLOOD SPECIMEN / Unknown Venipuncture / Unknown 03/02/2021 11:41 PM CDT 03/02/2021 11:45 PM CDT Fredy Felipe MD LAB - CHEMISTRY ORDE RABSILVA Performing Organization Address City/[facility]/ZIP Co de Phone Number [address] [address], [place] [phone] * MAGNESIUM BLOOD (03/02/2021 11:41 PM CDT) Magnesium 2.1 1.6 - 2.6 mg/dL 03/03/2021 12:10 AM CDT [facility] Blood BLOOD SPECIMEN / Unknown Venipuncture / Unknown 03/02/2021 11:41 PM CDT 03/02/2021 11:45 PM CDT Freyd Felipe MD LAB - CHEMISTRY ORDNolan VELA Performing Organization Address City/[facility]/ZIP Co de Phone Number [address] [address], [facility] [phone] * (ABNORMAL) CALCIUM IONIZED WHOLE BLOOD (03/02/2021 11:41 PM CDT) [facility] Calcium Ionized 1.21 mmol/L 03/02/2021 11:47 PM CDT [facility] pH 7.49(H) 7.35 - 7.45 pH 03/02/2021 11:47 PM CDT [facility] Ionized Calcium pH Adjusted 1.26 1.19 - 1.34 mmol/L 03/02/2021 11:47 PM CDT [facility] Blood BLOOD SPECIMEN / Unknown Venipuncture / Unknown 03/02/2021 11:41 PM CDT 03/02/2021 11:44 PM CDT Fredy Felipe MD LAB - CHEMISTRY JOSE ENRIQUE VELA Performing Organization Address City/[facility]/ZIP Co de Phone Number [facility] [address] [place] [address], [facility] [phone] * (ABNORMAL) URINALYSIS REFLEX TO MICROSCOPIC NO CULTURE (03/02/2021 6:52 PM CDT) Color UA Janis(A) Straw, Yellow 03/02/2021 7:39 PM CDT [facility] Clarity UA Slt Cloudy(A) Clear 03/02/2021 7:39 PM CDT [facility] Specific [place] UA 1.031(H) 1.005 - 1.030 03/02/2021 7:39 PM [facility] pH UA 5.0 5.0 - 8.0 pH 03/02/2021 7:39 PM [facility] Protein UA 2+(A) Negative 03/02/2021 7:39 PM [facility] Glucose UA Negative Negative 03/02/2021 7:39 PM [facility] Ketone UA Trace(A) Negative 03/02/2021 7:39 PM [facility] Bilirubin UA Negative Negative 03/02/2021 7:39 PM [facility] Blood UA 2+(A) Negative 03/02/2021 7:39 PM [facility] Nitrite UA Negative Negative 03/02/2021 7:39 PM [facility] Leukocyte Esterase Negative Negative 03/02/2021 7:39 PM [facility] Urobilinogen UA Negative Negative mg/dL 03/02/2021 7:39 PM [facility] RBC UA 21-50(A) None Seen, 0-2, 3-5 /HPF 03/02/2021 7:39 PM [facility] WBC UA 6-10(A) None Seen, 0-5 /HPF 03/02/2021 7:39 PM [facility] Bacteria UA Trace(A) None /HPF 03/02/2021 7:39 PM [facility] Squamous Epithelial Cells UA None Seen None Seen, 0-2, 3-5 /HPF 03/02/2021 7:39 PM [facility] Mucus UA 1+ /LPF 03/02/2021 7:39 PM [facility] Urine URINE SPECIMEN OBTAINED VIA [employer] / Unknown Collection / Unknown 03/02/2021 6:52 PM CDT 03/02/2021 7:00 PM [facility] - 03/02/2021 7:39 PM CDT Delilah Stubbs ATTENDANT [employer]-C OFFICE EMPLOYEE LAB - URINALYSIS ORDERABLES [facility] [address] [place] [address], [facility] [phone] * UREA NITROGEN URINE RANDOM (03/02/2021 6:52 PM CDT) Urea Nitrogen Random Urine 1,057 Not Established mg/dL 03/02/2021 7:33 PM CDT [facility] Urine URINE SPECIMEN OBTAINED BY CLEAN CATCH PROCEDURE / Unknown Collection / Unknown 03/02/2021 6:52 PM CDT 03/02/2021 7:00 PM CDT Delilah Stubbs APRN-Tal OFFICE EMPLOYEE LAB - URINE CHEMISTRY ORDERABLES [address] [address], [facility] [phone] * CHLORIDE URINE RANDOM (03/02/2021 6:52 PM CDT) Chloride Random Urine 45 Not Established mmol/L 03/02/2021 7:33 PM CDT [facility] Urine URINE SPECIMEN OBTAINED BY CLEAN CATCH PROCEDURE / Unknown Collection / Unknown 03/02/2021 6:52 PM CDT 03/02/2021 7:00 PM CDT Delilah Stubbs APRN-C OFFICE EMPLOYEE LAB - URINE CHEMISTRY ORDERABLES [address] [address], [facility] [phone] * LYTES (NA K) URINE RANDOM PANEL (03/02/2021 6:52 PM CDT) Sodium Urine 97 Not Established mmol/L 03/02/2021 7:33 PM CDT [facility] Potassium Urine 36.5 Not Established mmol/L 03/02/2021 7:33 PM CDT [facility] Urine URINE SPECIMEN OBTAINED BY CLEAN CATCH PROCEDURE / Unknown Collection / Unknown 03/02/2021 6:52 PM CDT 03/02/2021 7:00 PM CDT Delilah Stubbs APRN-C OFFICE EMPLOYEE LAB - URINE CHEMISTRY ORDERABLES [address] [address], [facility] [phone] * CREATININE URINE RANDOM (03/02/2021 6:52 PM CDT) Creatinine Urine 135 Not Established mg/dL 03/02/2021 7:33 PM CDT [facility] Urine URINE SPECIMEN OBTAINED BY CLEAN CATCH PROCEDURE / Unknown Collection / Unknown 03/02/2021 6:52 PM CDT 03/02/2021 7:00 PM CDT Delilah Stubbs APRN-C OFFICE EMPLOYEE LAB - URINE CHEMISTRY ORDERABLES Performing Organization Address City/[facility]/ZIP Co de Phone Number [address] [address], [facility] [phone] * (ABNORMAL) HEPATIC FUNCTION PANEL (03/02/2021 6:40 PM CDT) Protein Total 7.2 6.0 - 8.3 g/dL 7:40 PM CDT [facility] Albumin 1.8(L) 3.4 - 5.0 g/dL 03/02/2021 7:40 PM CDT [facility] Bilirubin Total 0.6 0.2 - 1.2 mg/dL 02/14 7:40 PM CDT [facility] Bilirubin Conjugated 0.3 0.1 - 0.5 mg/dL 03/02/2021 7:40 PM [facility] Bilirubin Unconjugated 0.3 Unconjugated Bilirubin is a calculated value: Reference ranges have not been established. mg/dL 03/02/2021 7:40 PM [facility] Alkaline Phosphatase 226(H) 40 - 150 U/L 03/02/2021 7:40 PM CDT [facility] ALT 27 5 - 55 U/L 03/02/2021 7:40 PM [facility] 46(H) 5 - 34 U/L 03/02/2021 7:40 PM [facility] Albumin/Globulin Ratio 0.3(L) 1.1 - 2.3 03/02/2021 7:40 PM [facility] Blood BLOOD SPECIMEN / Unknown Venipuncture / Unknown 03/02/2021 6:40 PM CDT 03/02/2021 6:46 PM CDT Delilah JEFFERY OFFICE EMPLOYEE LAB - CHEMISTRY ORDERABLES [facility] [address] [place] [address], [facility] [phone] * (ABNORMAL) BASIC METABOLIC PANEL (CALCIUM TOTAL) (03/02/2021 6:40 PM CDT) BUN 20 7 - 26 mg/dL 03/02/2021 7:40 PM [facility] Creatinine 1.26(H) 0.71 - 1.16 mg/dL 03/02/2021 7:40 PM [facility] Sodium 139 136 - 145 mmol/L 03/02/2021 7:40 PM [facility] Potassium 3.8 3.5 - 4.5 mmol/L 03/02/2021 7:40 PM [facility] Chloride 105 98 - 107 mmol/L 03/02/2021 7:40 PM [facility] CO2 22 22 - 29 mmol/L 03/02/2021 7:40 PM [facility] Glucose 84 70 - 115 mg/dL 03/02/2021 7:40 PM [facility] Calcium 9.1 8.4 - 10.2 mg/dL 03/02/2021 7:40 PM [facility] Anion Gap 16 8 - 18 03/02/2021 7:40 PM [facility] BUN/Creatinine Ratio 16 7 - 23 03/02/2021 7:40 PM [facility] Osmolality Calculated 290 270 - 300 mOsm/kg 03/02/2021 7:40 PM [facility] eGFR by CKD-EPI 73(L) >=90 mL/min/1.7 3 m2 03/02/2021 7:40 PM [facility] Blood BLOOD SPECIMEN / Unknown Venipuncture / Unknown 03/02/2021 6:40 PM CDT 03/02/2021 6:46 PM CDT Delilah JEFFERY OFFICE EMPLOYEE LAB - CHEMISTRY ORDERABLES [facility] [address] [place] [address], [facility] [phone] * (ABNORMAL) BLOOD GASES ART + COOX PANEL (03/02/2021 5:54 AM CDT) pH Arterial 7.52(H) 7.35 - 7.45 pH 03/02/2021 5:58 AM [facility] pO2 Arterial 163(H) 80 - 100 mmHg 03/02/2021 5:58 AM [facility] pCO2 Arterial 27(L) 35 - 45 mmHg 5:58 AM [facility] HCO3 Arterial 22 20 - 30 mmol/l 03/02/2021 5:58 AM [facility] BE Arterial 0.0 -2.0 - 2.0 mmol/L 03/02/2021 5:58 AM [facility] Oxyhemoglobin Arterial 96.4 % 03/02/2021 5:58 AM [facility] Dexoyhemoglobin (HHB) % 0.4 % 03/02/2021 5:58 AM [facility] Methemoglobin 0.9 0.0 - 2.0 % 03/02/2021 5:58 AM [facility] Carboxyhemoglobin 2.4(H) 0.0 - 2.0 % 2020 5:58 AM [facility] O2 Content Arterial 15.1 Interpret within clinical context mg/dL 03/02/2021 5:58 AM [facility] Hemoglobin by COOX 10.9(L) 12.0 - 17.6 g/dL 03/02/2021 5:58 AM [facility] O2 Saturation Arterial 100 90 - 100 % 03/02/2021 5:58 AM CDT [facility] FI O2 Arterial 40.0 % 03/02/2021 5:58 AM CDT [facility] Blood, arterial ARTERIAL BLOOD SPECIMEN / Unknown Arterial Puncture / Unknown 03/02/2021 5:54 AM CDT 03/02/2021 5:56 AM CDT Narrative [facility] - 03/02/2021 5:58 AM CDT Carboxyhemoglobin Normal Concentration: Non-smokers: 0-2%; Smokers: 0-9%; Toxic: >20% Fredy Felipe MD LAB - BLOOD GASES OR DERABLES [facility] [address] [place] [address], [facility] [phone] * XR CHEST 1VW PORTABLE (03/02/2021 4:22 [...] but stable. Dictated by Uyen Garcia MD (executive assistant to president). This report was approved ??by Uyen Garcia [...] but stable. Dictated by Uyen Garcia MD (executive assistant to president). This report was approved by Uyen Garcia on 03/02/2021 11:30 AM . I, Dr. JASWINDER CARRION have personally reviewed and interpreted this examination/study. This report was electronically signed by JASWINDER CARRION on 03/02/2021 11:30 AM . Fredy Felipe MD DIAGNOSTIC IMAGING O RDERABLES * (ABNORMAL) DIFFERENTIAL MANUAL (03/01/2021 11:16 PM CDT) WBC (corrected for NRBC) 17.9 10? 3 /uL 03/02/2021 12:17 AM CDT [facility] Total Cell Count 100 03/02/2021 12:17 AM CDT [facility] Neutrophils Absolute Manual 14.50(H) 1.60 - 7.00 10? 3 /uL 03/02/2021 12:17 AM [facility] Comment:(BANDS+SEGS) x WBC = NEUT # (ANC) Lymphocyte Absolute Manual 0.36(L) 1.10 - 3.90 10? 3 /uL 03/02/2021 12:17 AM [facility] Monocytes Absolute Manual 2.51(H) 0.26 - 1.07 10? 3 /uL 03/02/2021 12:17 AM [facility] Eosinophils Absolute Manual 0.36 0.00 - 0.47 10? 3 /uL 03/02/2021 12:17 AM [facility] Basophil Absolute Manual 0.18(H) 0.00 - 0.08 10? 3 /uL 03/02/2021 12:17 AM [facility] Neutrophil % Manual 81(H) 35 - 70 % 03/02/2021 12:17 AM [facility] Lymphocyte % Manual 2(L) 20 - 43 % 03/02/2021 12:17 AM [facility] Monocytes % Manual 14(H) 5 - 13 % 03/02/2021 12:17 AM [facility] Eosinophils % Manual 2 0 - 6 % 03/02/2021 12:17 AM [facility] Basophils % Manual 1 0 - 2 % 03/02/2021 12:17 AM [facility] Platelet Estimate Increased( A) Adequate 03/02/2021 12:17 AM [facility] RBC Morphology Normal 03/02/2021 12:17 AM [facility] Blood BLOOD SPECIMEN / Unknown Venipuncture / Unknown 03/01/2021 11:16 PM CDT 03/01/2021 11:21 PM CDT Fredy Felipe MD LAB - HEMATOLOGY ORD ERABLES [facility] [address] [place] [id number], [facility] [phone] * (ABNORMAL) HEPATIC FUNCTION PANEL (03/01/2021 11:16 PM CDT) Protein Total 6.7 6.0 - 8.3 g/dL 021 11:46 PM [facility] Albumin 1.5(L) 3.4 - 5.0 g/dL 03/01/2021 11:46 PM [facility] Bilirubin Total 0.6 0.2 - 1.2 mg/dL 02/14 11:46 PM [facility] Bilirubin Conjugated 0.5 0.1 - 0.5 mg/dL 03/01/2021 11:46 PM [facility] Bilirubin Unconjugated 0.1 Unconjugated Bilirubin is a calculated value: Reference ranges have not been established. mg/dL 03/01/2021 11:46 PM [facility] Alkaline Phosphatase 270(H) 40 - 150 U/L 03/01/2021 11:46 PM [facility] ALT 32 5 - 55 U/L 03/01/2021 11:46 PM [facility] AST 58(H) 5 - 34 U/L 03/01/2021 11:46 PM [facility] Albumin/Globulin Ratio 0.3(L) 1.1 - 2.3 03/01/2021 11:46 PM [facility] Blood BLOOD SPECIMEN / Unknown Venipuncture / Unknown 03/01/2021 11:16 PM CDT 03/01/2021 11:21 PM CDT Fredy Felipe MD LAB - CHEMISTRY JOSE ENRIQUE VELA [facility] Organization Address City/State/[facility] de Phone Number [facility] [address] [place] [address], [facility] [phone] * (ABNORMAL) CBC W AUTO DIFFERENTIAL (03/01/2021 11:16 PM CDT) WBC 17.9(H) 3.5 - 10.5 10? 3 /uL 03/01/2021 11:29 PM [facility] RBC 3.85(L) 4.30 - 5.70 10? 6 /uL 03/01/2021 11:29 PM [facility] Hemoglobin 10.6(L) 12.0 - 17.6 g/dL 03/01/2021 11:29 PM [facility] Hematocrit 33.0(L) 35.2 - 51.7 % 03/01/2021 11:29 PM [facility] MCV 85.7 80.7 - 98.3 fL 03/01/2021 11:29 PM [facility] MCH 27.5 26.7 - 34.0 pg 03/01/2021 11:29 PM [facility] MCHC 32.1 30.8 - 35.9 g/dL 03/01/2021 11:29 PM [facility] Platelet Count 615(H) 150 - 400 10? 3 /uL 03/01/2021 11:29 PM [facility] RDW-SD 42.8 36.0 - 50.0 fL 03/01/2021 11:29 PM [facility] RDW-CV 13.7 11.2 - 14.8 % 03/01/2021 11:29 PM [facility] MPV 8.7(L) 9.4 - 12.9 fL 03/01/2021 11:29 PM [facility] nRBC Absolute 0.00 0 10? 3 /uL 03/01/2021 11:29 PM [facility] nRBC Auto 0.0 0 /100 WBC 03/01/2021 11:29 PM [facility] Blood BLOOD SPECIMEN / Unknown Venipuncture / Unknown 03/01/2021 11:16 PM CDT 03/01/2021 11:21 PM CDT Fredy Felipe MD LAB - HEMATOLOGY ORD ERABLES [facility] [address] [place] [address], [facility] [phone] * (ABNORMAL) BASIC METABOLIC PANEL (CALCIUM TOTAL) (03/01/2021 11:16 PM CDT) BUN 21 7 - 26 mg/dL 03/01/2021 11:46 PM [facility] Creatinine 1.35(H) 0.71 - 1.16 mg/dL 03/01/2021 11:46 PM [facility] Sodium 142 136 - 145 mmol/L 03/01/2021 11:46 PM [facility] Potassium 3.7 3.5 - 4.5 mmol/L 03/01/2021 11:46 PM [facility] Chloride 108(H) 98 - 107 mmol/L 03/01/2021 11:46 PM [facility] CO2 20(L) 22 - 29 mmol/L 03/01/2021 11:46 PM [facility] Glucose 93 70 - 115 mg/dL 03/01/2021 11:46 PM [facility] Calcium 9.0 8.4 - 10.2 mg/dL 03/01/2021 11:46 PM [facility] Anion Gap 18 8 - 18 03/01/2021 11:46 PM [facility] BUN/Creatinine Ratio 16 7 - 23 03/01/2021 11:46 PM [facility] Osmolality Calculated 297 270 - 300 mOsm/kg 03/01/2021 11:46 PM [facility] eGFR by CKD-EPI 68(L) >=90 mL/min/1.7 3 m2 03/01/2021 11:46 PM [facility] Blood BLOOD SPECIMEN / Unknown Venipuncture / Unknown 03/01/2021 11:16 PM CDT 03/01/2021 11:21 PM T Fredy Felipe MD LAB - CHEMISTRY JOSE ENRIQUE VELA [facility] Organization Address City/State/[facility] Co de Phone Number [facility] [address] [place] [phone] [phone] * (ABNORMAL) BLOOD GASES ART + COOX PANEL (03/01/2021 11:16 PM CDT) pH Arterial 7.58(H) 7.35 - 7.45 pH 03/01/2021 11:22 PM [facility] pO2 Arterial 164(H) 80 - 100 mmHg 03/01/2021 11:22 PM [facility] pCO2 Arterial 24(L) 35 - 45 mmHg 11:22 PM [facility] HCO3 Arterial 23 20 - 30 mmol/l 03/01/2021 11:22 PM [facility] BE Arterial 1.7 -2.0 - 2.0 mmol/L 03/01/2021 11:22 PM [facility] Oxyhemoglobin Arterial 96.4 % 03/01/2021 11:22 PM [facility] Dexoyhemoglobin (HHB) % 0.4 % 03/01/2021 11:22 PM [facility] Methemoglobin 1.3 0.0 - 2.0 % 03/01/2021 11:22 PM [facility] Carboxyhemoglobin 1.9 0.0 - 2.0 % 2020 11:22 PM [facility] O2 Content Arterial 15.8 Interpret within clinical context mg/dL 03/01/2021 11:22 PM [facility] Hemoglobin by COOX 11.4(L) 12.0 - 17.6 g/dL 03/01/2021 11:22 PM [facility] O2 Saturation Arterial 100 90 - 100 % 03/01/2021 11:22 PM [facility] FI O2 Arterial 40.0 % 03/01/2021 11:22 PM [facility] Blood, arterial ARTERIAL BLOOD SPECIMEN / Unknown Arterial Puncture / Unknown 03/01/2021 11:16 PM T 03/01/2021 11:20 PM [facility] - 03/01/2021 11:22 PM [facility] Carboxyhemoglobin Normal Concentration: Non-smokers: 0-2%; Smokers: 0-9%; Toxic: >20% Fredy Felipe MD LAB - BLOOD GASES OR DERABLES [facility] [address] [place] [address], [facility] [phone] * (ABNORMAL) PT-INR [facility] (03/01/2021 11:16 PM [facility]) PT 14.9(H) 12.1 - 14.8 Seconds 03/01/2021 11:34 PM [facility] INR 1.2 See Comment 03/01/2021 11:34 PM CDT [facility] Comment:The suggested therap eutic range for standard coumadin (warfarin) therapy is an INR of 2.0-3.0. For high-risk patients (Mechanical Mitral Valve Prosthesis, etc.), the suggested prophylactic therapeutic range is an INR of 2.5-3.5. Blood BLOOD SPECIMEN / Unknown Venipuncture / Unknown 03/01/2021 11:16 PM CDT 03/01/2021 11:20 PM CDT Fredy Felipe MD LAB - COAGULATION OR DERABLES Performing Organization Address [facility]/ZIP Co de Phone Number [address] [address], [facility] [phone] * PHOSPHORUS BLOOD (03/01/2021 11:16 PM CDT) Phosphorus 3.7 2.8 - 5.1 mg/dL 03/01/2021 11:46 PM CDT [facility] Blood BLOOD SPECIMEN / Unknown Venipuncture / Unknown 03/01/2021 11:16 PM CDT 03/01/2021 11:21 PM CDT Fredy Felipe MD LAB - CHEMISTRY JOSE ENRIQUE VELA Performing Organization Address [facility] Co de Phone Number [address] [address], [facility] [phone] * MAGNESIUM BLOOD (03/01/2021 11:16 PM CDT) Magnesium 2.1 1.6 - 2.6 mg/dL 03/01/2021 11:46 PM CDT [facility] Blood BLOOD SPECIMEN / Unknown Venipuncture / Unknown 03/01/2021 11:16 PM CDT 03/01/2021 11:21 PM CDT Fredy Felipe MD LAB - CHEMISTRY JOSE ENRIQUE VELA Performing Organization Address City/[facility]/ZIP Co de Phone Number [address] [place] [address], [facility] [phone] * (ABNORMAL) CALCIUM IONIZED WHOLE BLOOD (03/01/2021 11:16 PM CDT) Calcium Ionized 1.18 mmol/L 03/01/2021 11:22 PM CDT [facility] pH 7.57(H) 7.35 - 7.45 pH 03/01/2021 11:22 PM CDT [facility] Ionized Calcium pH Adjusted 1.27 1.19 - 1.34 mmol/L 03/01/2021 11:22 PM CDT [facility] Blood BLOOD SPECIMEN / Unknown Venipuncture / Unknown 03/01/2021 11:16 PM CDT 03/01/2021 11:20 PM CDT Fredy Felipe MD LAB - CHEMISTRY JOSE ENRIQUE VELA [facility] Organization Address City/State/ZIP Co al Phone Number [facility] [address] [place] [address], [facility] [phone] * XR CHEST 1VW PORTABLE (03/01/2021 4:20 [...] Keo Hernandez M.D. (resident) IDr. NAOMY MD, [facility] have personally reviewed and interpreted [...] (resident) IDr. NAOMY MD, [facility] have personally reviewedand interpreted this examination/study. This report was electronically signed by NAOMY LAZO MD, [facility] on 03/03/2021 3:30 PM . Fredy Felipe MD DIAGNOSTIC IMAGING O RDERABLES * (ABNORMAL) DIFFERENTIAL MANUAL (03/01/2021 12:11 AM CDT) WBC (corrected for NRBC) 15.6 10? 3 /uL 03/01/2021 1:34 AM [facility] Total Cell Count 100 03/01/2021 1:34 AM [facility] Neutrophils Absolute Manual 12.01(H) 1.60 - 7.00 10? 3 /uL 03/01/2021 1:34 AM [facility] Comment:(BANDS+SEGS) x WBC = NEUT # (ANC) Lymphocyte Absolute Manual 1.09(L) 1.10 - 3.90 10? 3 /uL 03/01/2021 1:34 AM [facility] Monocytes Absolute Manual 1.87(H) 0.26 - 1.07 10? 3 /uL 03/01/2021 1:34 AM [facility] Eosinophils Absolute Manual 0.62(H) 0.00 - 0.47 10? 3 /uL 03/01/2021 1:34 AM [facility] Neutrophil % Manual 77(H) 35 - 70 % 03/01/2021 1:34 AM [facility] Lymphocyte % Manual 7(L) 20 - 43 % 03/01/2021 1:34 AM [facility] Monocytes % Manual 12 5 - 13 % 03/01/2021 1:34 AM [facility] Eosinophils % Manual 4 0 - 6 % 03/01/2021 1:34 AM [facility] Platelet Estimate Increased( A) Adequate 03/01/2021 1:34 AM [facility] RBC Morphology Normal 03/01/2021 1:34 AM [facility] Blood BLOOD SPECIMEN / Unknown Venipuncture / Unknown 03/01/2021 12:11 AM CDT 03/01/2021 12:18 AM CDT Fredy Felipe MD LAB - HEMATOLOGY ORD ERABLES Performing Organization Address City/State/[facility] Co de Phone Number [facility] [address] [place] [phone] [phone] * (ABNORMAL) CBC W AUTO DIFFERENTIAL (03/01/2021 12:11 AM CDT) WBC 15.6(H) 3.5 - 10.5 10? 3 /uL 03/01/2021 12:42 AM [facility] RBC 3.88(L) 4.30 - 5.70 10? 6 /uL 03/01/2021 12:42 AM [facility] Hemoglobin 10.6(L) 12.0 - 17.6 g/dL 03/01/2021 12:42 AM [facility] Hematocrit 32.8(L) 35.2 - 51.7 % 03/01/2021 12:42 AM [facility] MCV 84.5 80.7 - 98.3 fL 03/01/2021 12:42 AM [facility] MCH 27.3 26.7 - 34.0 pg 03/01/2021 12:42 AM [facility] MCHC 32.3 30.8 - 35.9 g/dL 03/01/2021 12:42 AM [facility] Platelet Count 573(H) 150 - 400 10? 3 /uL 03/01/2021 12:42 AM [facility] RDW-SD 42.7 36.0 - 50.0 fL 03/01/2021 12:42 AM [facility] RDW-CV 13.7 11.2 - 14.8 % 03/01/2021 12:42 AM [facility] MPV 8.8(L) 9.4 - 12.9 fL 03/01/2021 12:42 AM [facility] nRBC Absolute 0.00 0 10? 3 /uL 03/01/2021 12:42 AM [facility] nRBC Auto 0.0 0 /100 WBC 03/01/2021 12:42 AM [facility] Immature Platelet Fraction 0.6(L) 1.1 - 6.2 % 03/01/2021 12:42 AM [facility] Blood BLOOD SPECIMEN / Unknown Venipuncture / Unknown 03/01/2021 12:11 AM CDT 03/01/2021 12:18 AM T Fredy Felipe MD LAB - HEMATOLOGY ORD ERABLES Performing Organization Address [facility]/State/ZIP Co de Phone Number [facility] [address] [place] [address], [facility] [phone] * (ABNORMAL) BASIC METABOLIC PANEL (CALCIUM TOTAL) (03/01/2021 12:11 AM CDT) BUN 23 7 - 26 mg/dL 03/01/2021 12:42 AM [facility] Creatinine 1.21(H) 0.71 - 1.16 mg/dL 03/01/2021 12:42 AM [facility] Sodium 141 136 - 145 mmol/L 03/01/2021 12:42 AM [facility] Potassium 3.9 3.5 - 4.5 mmol/L 03/01/2021 12:42 AM [facility] Chloride 107 98 - 107 mmol/L 03/01/2021 12:42 AM [facility] CO2 21(L) 22 - 29 mmol/L 03/01/2021 12:42 AM [facility] Glucose 93 70 - 115 mg/dL 03/01/2021 12:42 AM [facility] Calcium 9.3 8.4 - 10.2 mg/dL 03/01/2021 12:42 AM [facility] Anion Gap 17 8 - 18 03/01/2021 12:42 AM [facility] BUN/Creatinine Ratio 19 7 - 23 03/01/2021 12:42 AM [facility] Osmolality Calculated 295 270 - 300 mOsm/kg 03/01/2021 12:42 AM [facility] eGFR by CKD-EPI 77(L) >=90 mL/min/1.7 3 m2 03/01/2021 12:42 AM [facility] Blood BLOOD SPECIMEN / Unknown Venipuncture / Unknown 03/01/2021 12:11 AM CDT 03/01/2021 12:18 AM [facility] Fredy Felipe MD LAB - CHEMISTRY JOSE ENRIQUE VELA [facility] Organization Address City/State/ZIP Co de Phone Number [facility] [address] [place] [address], [facility] [phone] * (ABNORMAL) BLOOD GASES ART + COOX PANEL (03/01/2021 12:11 AM [facility]) pH Arterial 7.46(H) 7.35 - 7.45 pH 03/01/2021 12:22 AM [facility] pO2 Arterial 144(H) 80 - 100 mmHg 03/01/2021 12:22 AM [facility] pCO2 Arterial 33(L) 35 - 45 mmHg 12:22 AM [facility] HCO3 Arterial 24 20 - 30 mmol/l 03/01/2021 12:22 AM [facility] BE Arterial 0.1 -2.0 - 2.0 mmol/L 03/01/2021 12:22 AM [facility] Oxyhemoglobin Arterial 97.3 % 03/01/2021 12:22 AM [facility] Dexoyhemoglobin (HHB) % 0.2 % 03/01/2021 12:22 AM [facility] Methemoglobin <0.8 0.0 - 2.0 % 03/01/2021 12:22 AM [facility] Carboxyhemoglobin 1.8 0.0 - 2.0 % 2020 12:22 AM [facility] O2 Content Arterial 15.9 Interpret within clinical context mg/dL 03/01/2021 12:22 AM [facility] Hemoglobin by COOX 11.4(L) 12.0 - 17.6 g/dL 03/01/2021 12:22 AM [facility] O2 Saturation Arterial 100 90 - 100 % 03/01/2021 12:22 AM [facility] FI O2 Arterial 40.0 % 03/01/2021 12:22 AM [facility] Blood, arterial ARTERIAL BLOOD SPECIMEN / Unknown Arterial Puncture / Unknown 03/01/2021 12:11 AM [facility] 03/01/2021 12:16 AM [facility] - 03/01/2021 12:22 AM [facility] Carboxyhemoglobin Normal Concentration: Non-smokers: 0-2%; Smokers: 0-9%; Toxic: >20% Fredy Felipe MD LAB - BLOOD GASES OR DERABLES Performing Organization Address [facility]/State/[facility] Co de Phone Number [facility] [address] [place] [phone], [facility] [phone] * PT-INR [facility] (03/01/2021 12:11 AM [facility]) PT 14.0 12.1 - 14.8 Seconds 03/01/2021 12:35 AM [facility] INR 1.1 See Comment 03/01/2021 12:35 AM [facility] Comment:The suggested therap eutic range for standard coumadin (warfarin) therapy is an INR of 2.0-3.0. For high-risk patients (Mechanical Mitral Valve Prosthesis, etc.), the suggested prophylactic therapeutic range is an INR of 2.5-3.5. Blood BLOOD SPECIMEN / Unknown Venipuncture / Unknown 03/01/2021 12:11 AM CDT 03/01/2021 12:16 AM CDT Fredy Felipe MD LAB - COAGULATION OR DERABLES Performing Organization Address City/[facility]/ZIP Co de Phone Number [address] [address], [facility] [phone] * PHOSPHORUS BLOOD (03/01/2021 12:11 AM CDT) Phosphorus 3.9 2.8 - 5.1 mg/dL 03/01/2021 12:42 AM CDT [facility] Blood BLOOD SPECIMEN / Unknown Venipuncture / Unknown 03/01/2021 12:11 AM CDT 03/01/2021 12:18 AM CDT Fredy Felipe MD LAB - CHEMISTRY JOSE ENRIQUE VELA Performing Organization Address [facility]/ZIP Co de Phone Number [address] [address], [facility] [phone] * MAGNESIUM BLOOD (03/01/2021 12:11 AM CDT) Magnesium 2.1 1.6 - 2.6 mg/dL 03/01/2021 12:42 AM CDT [facility] Blood BLOOD SPECIMEN / Unknown Venipuncture / Unknown 03/01/2021 12:11 AM CDT 03/01/2021 12:18 AM CDT Fredy Felipe MD LAB - CHEMISTRY JOSE ENRIQUE VELA Performing Organization Address City/[facility]/ZIP Co de Phone Number [address] [address], [facility] [phone] * CALCIUM IONIZED WHOLE BLOOD (03/01/2021 12:11 AM CDT) Calcium Ionized 1.21 mmol/L 03/01/2021 12:22 AM CDT [facility] pH 7.45 7.35 - 7.45 pH 03/01/2021 12:22 AM CDT [facility] Ionized Calcium pH Adjusted 1.24 1.19 - 1.34 mmol/L 03/01/2021 12:22 AM CDT [facility] Blood BLOOD SPECIMEN / Unknown Venipuncture / Unknown 03/01/2021 12:11 AM CDT 03/01/2021 12:16 AM CDT Fredy Felipe MD LAB - CHEMISTRY JOSE ENRIQUE VELA [facility] [address] [place] [address], [facility] [phone] * XR CHEST 1VW PORTABLE (02/28/2021 5:13 AM CDT) Anatomical Region Laterality Modality Chest Radiographic Sera ging 02/28/2021 1:26 PM CDT Impressions 02/28/2021 4:37 PM CDT IMPRESSION: No significant change, diffuse multifocal patchy opacities, may represent multifocal pneumonia or pulmonary contusions given the history of trauma. Report dictated by Simone Alexander MD, PhD (executive assistant to president). I, Dr. Jamaal CASTILLO M.D. have personally [...] Report dictated by Simone Alexander MD, PhD (executive assistant to president). Dr. Jamaal Yao M.D. have personally reviewed [...] Report dictated by Simone Alexander MD, PhD (executive assistant to president). Dr. Jamaal Yao M.D. have personally reviewed [...] Report dictated by Simone Alexander MD, PhD (executive assistant to president). I, Dr. Jamaal CASTILLO M.D. have personally reviewed and interpretedthis examination/study. This report was electronically signed by Jamaal CASTILLO M.D. on 02/28/2021 4:24 PM . Dino Hudson PA-C DIAGNOSTIC IMAGIN G ORDERABLES * (ABNORMAL) DIFFERENTIAL MANUAL (02/28/2021 12:56 AM CDT) WBC (corrected for NRBC) 21.9 10? 3 /uL 02/28/2021 3:04 AM [facility] Total Cell Count 100 02/28/2021 3:04 AM [facility] Neutrophils Absolute Manual 17.96(H) 1.60 - 7.00 10? 3 /uL 02/28/2021 3:04 AM [facility] Comment:(BANDS+SEGS) x WBC = NEUT # (ANC) Lymphocyte Absolute Manual 1.10 1.10 - 3.90 10? 3 /uL 02/28/2021 3:04 AM [facility] Monocytes Absolute Manual 2.41(H) 0.26 - 1.07 10? 3 /uL 02/28/2021 3:04 AM [facility] Eosinophils Absolute Manual 0.44 0.00 - 0.47 10? 3 /uL 02/28/2021 3:04 AM [facility] Neutrophil % Manual 82(H) 35 - 70 % 02/28/2021 3:04 AM [facility] Lymphocyte % Manual 5(L) 20 - 43 % 02/28/2021 3:04 AM [facility] Monocytes % Manual 11 5 - 13 % 02/28/2021 3:04 AM [facility] Eosinophils % Manual 2 0 - 6 % 02/28/2021 3:04 AM [facility] Platelet Estimate Increased( A) Adequate 02/28/2021 3:04 AM [facility] RBC Morphology Normal 02/28/2021 3:04 AM [facility] Blood BLOOD SPECIMEN / Unknown Venipuncture / Unknown 02/28/2021 12:56 AM CDT 02/28/2021 1:22 AM CDT rFedy Felipe MD LAB - HEMATOLOGY ORD ERABLES Performing Organization Address [facility]/ZIP Co de Phone Number [address] [address], [place] [phone] * (ABNORMAL) TRIGLYCERIDES BLOOD (02/28/2021 12:56 AM CDT) [facility] Triglycerides 389(H) <150 mg/dL 02/28/2021 1:51 AM CDT [facility] Comment: ATP III Classification of Triglycerides: ?<150 mg/dL: ??Normal ? 150 - 199 mg/dL: ??Borderline High ? 200 - 400 mg/dL: ??High ?>500 mg/dL: ??Very High Blood BLOOD SPECIMEN / Unknown Venipuncture / Unknown 02/28/2021 12:56 AM CDT 02/28/2021 1:22 AM CDT Kelvin Stewart MD LAB - CHEMISTRY ORD ERABLES Performing Organization Address [facility]/ZIP Co de Phone Number [address] [address], [facility] [phone] * (ABNORMAL) CBC W AUTO DIFFERENTIAL (02/28/2021 12:56 AM CDT) [facility] WBC 21.9(H) 3.5 - 10.5 10? 3 /uL 02/28/2021 1:31 AM CDT [facility] RBC 3.81(L) 4.30 - 5.70 10? 6 /uL 02/28/2021 1:31 AM CDT [facility] Hemoglobin 10.4(L) 12.0 - 17.6 g/dL 02/28/2021 1:31 AM CDT [facility] Hematocrit 32.7(L) 35.2 - 51.7 % 02/28/2021 1:31 AM CDT [facility] MCV 85.8 80.7 - 98.3 fL 02/28/2021 1:31 AM [facility] MCH 27.3 26.7 - 34.0 pg 02/28/2021 1:31 AM [facility] MCHC 31.8 30.8 - 35.9 g/dL 02/28/2021 1:31 AM [facility] Platelet Count 493(H) 150 - 400 10? 3 /uL 02/28/2021 1:31 AM [facility] RDW-SD 43.9 36.0 - 50.0 fL 02/28/2021 1:31 AM [facility] RDW-CV 14.0 11.2 - 14.8 % 02/28/2021 1:31 AM [facility] MPV 9.1(L) 9.4 - 12.9 fL 02/28/2021 1:31 AM [facility] nRBC Absolute 0.02(H) 0 10? 3 /uL 02/28/2021 1:31 AM [facility] nRBC Auto 0.1(H) 0 /100 WBC 02/28/2021 1:31 AM [facility] Blood BLOOD SPECIMEN / Unknown Venipuncture / Unknown 02/28/2021 12:56 AM CDT 02/28/2021 1:22 AM CDT Fredy Felipe MD LAB - HEMATOLOGY ORD ERABLES Performing Organization Address City/State/[facility] Co de Phone Number [facility] [address] [place] [id number], [facility] [phone] * (ABNORMAL) BASIC METABOLIC PANEL (CALCIUM TOTAL) (02/28/2021 12:56 AM CDT) BUN 24 7 - 26 mg/dL 02/28/2021 1:51 AM [facility] Creatinine 1.30(H) 0.71 - 1.16 mg/dL 02/28/2021 1:51 AM [facility] Sodium 138 136 - 145 mmol/L 02/28/2021 1:51 AM [facility] Potassium 4.2 3.5 - 4.5 mmol/L 02/28/2021 1:51 AM [facility] Chloride 107 98 - 107 mmol/L 02/28/2021 1:51 AM [facility] CO2 19(L) 22 - 29 mmol/L 02/28/2021 1:51 AM [facility] Glucose 93 70 - 115 mg/dL 02/28/2021 1:51 AM [facility] Calcium 9.2 8.4 - 10.2 mg/dL 02/28/2021 1:51 AM [facility] Anion Gap 16 8 - 18 02/28/2021 1:51 AM [facility] BUN/Creatinine Ratio 18 7 - 23 02/28/2021 1:51 AM [facility] Osmolality Calculated 290 270 - 300 mOsm/kg 02/28/2021 1:51 AM [facility] eGFR by CKD-EPI 71(L) >=90 mL/min/1.7 3 m2 02/28/2021 1:51 AM [facility] Blood BLOOD SPECIMEN / Unknown Venipuncture / Unknown 02/28/2021 12:56 AM CDT 02/28/2021 1:22 AM T Fredy Felipe MD LAB - CHEMISTRY [facility] Organization Address City/State/ZIP Co de Phone Number [facility] [address] [place] [phone], [facility] [phone] * (ABNORMAL) BLOOD GASES ART + COOX PANEL (02/28/2021 12:56 AM CDT) pH Arterial 7.50(H) 7.35 - 7.45 pH 02/28/2021 1:20 AM [facility] pO2 Arterial 142(H) 80 - 100 mmHg 02/28/2021 1:20 AM [facility] pCO2 Arterial 27(L) 35 - 45 mmHg 1:20 AM [facility] HCO3 Arterial 21 20 - 30 mmol/l 02/28/2021 1:20 AM [facility] BE Arterial -1.1 -2.0 - 2.0 mmol/L 02/28/2021 1:20 AM [facility] Oxyhemoglobin Arterial 96.0 % 02/28/2021 1:20 AM [facility] Dexoyhemoglobin (HHB) % 0.5 % 02/28/2021 1:20 AM [facility] Methemoglobin 1.3 0.0 - 2.0 % 02/28/2021 1:20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 02/26/2021 11:56 AM CDT [facility] Comment:Coagulase-negative s taphylococci (CoNS) detected by nucleic acid testing. CoNS are the most common skin contaminants grown in blood cultures and positive results must be interpreted in the appropriate clinical context. Susceptibilty testing performed on clinically significant isolates. Staphylococcus aureus Not Detected Not Detected, Indetermin ate, Invalid 02/26/2021 11:56 AM CDT [facility] Enterococcus Not Detected Not Detected, Indetermin ate, Invalid 02/26/2021 11:56 AM CDT [facility] Streptococcus Not Detected Not Detected, Indetermin ate, Invalid 02/26/2021 11:56 AM CDT [facility] Streptococcus pyogenes (Group A) Not Detected Not Detected, Indetermin ate, Invalid 02/26/2021 11:56 AM CDT [facility] Streptococcus agalactiae (Group B) Not Detected Not Detected, Indetermin ate, Invalid 02/26/2021 11:56 AM CDT [facility] Streptococcus pneumoniae Not Detected Not Detected, Invalid 02/26/2021 11:56 AM CDT [facility] Blood PERIPHERAL BLOOD / Unknown Venipuncture / Unknown 02/25/2021 5:25 AM CDT 02/25/2021 5:30 AM CDT Delilah JEFFERY OFFICE EMPLOYEE LAB - MICROBIOLOGY ORDERABLES [facility] [address] [place] [address], [facility] [phone] * (ABNORMAL) CULTURE BLOOD (02/25/2021 5:25 AM CDT) Culture Growth of Staphylococcus lugdunensis(AA) [place] 03/02/2021 8:09 AM CDT [facility] Comment:Possible contaminant unless multiple cultures are positive for the same isolate. Blood PERIPHERAL BLOOD / Unknown Venipuncture / Unknown 02/25/2021 5:25 AM CDT 02/25/2021 5:30 AM CDT Narrative [facility] - 03/02/2021 8:09 AM CDT Positive at 1 day and 1 hour Delilah JEFFERY NP LAB - MICROBIOLOGY ORDERABLES Performing Organization Address City/[facility]/ZIP Co de Phone Number [facility] [address] [place] [address], [facility] [phone] * CULTURE BLOOD (02/25/2021 5:16 AM CDT) Pathologist [facility] Culture No growth day 5 [place] 03/02/2021 8:00 AM CDT [facility] Blood PERIPHERAL BLOOD / Unknown Venipuncture / Unknown 02/25/2021 5:16 AM CDT 02/25/2021 5:30 AM CDT Delilah JEFFERY OFFICE EMPLOYEE LAB - MICROBIOLOGY ORDERABLES Performing Organization Address City/[facility]/ZIP Co de Phone Number [facility] [address] [place] [address], [facility] [phone] * (ABNORMAL) CBC W AUTO DIFFERENTIAL (02/25/2021 2:36 AM CDT) WBC 27.1(H) 3.5 - 10.5 10? 3 /uL 02/25/2021 3:03 AM CDT [facility] Comment:All CBC parameters h ave been checked. RBC 4.89 4.30 - 5.70 10? 6 /uL 02/25/2021 3:03 AM CDT [facility] Hemoglobin 13.7 12.0 - 17.6 g/dL 02/25/2021 3:03 AM [facility] Hematocrit 42.9 35.2 - 51.7 % 02/25/2021 3:03 AM [facility] MCV 87.7 80.7 - 98.3 fL 02/25/2021 3:03 AM [facility] MCH 28.0 26.7 - 34.0 pg 02/25/2021 3:03 AM [facility] MCHC 31.9 30.8 - 35.9 g/dL 02/25/2021 3:03 AM [facility] Platelet Count 487(H) 150 - 400 10? 3 /uL 02/25/2021 3:03 AM [facility] RDW-SD 44.1 36.0 - 50.0 fL 02/25/2021 3:03 AM [facility] RDW-CV 13.7 11.2 - 14.8 % 02/25/2021 3:03 AM [facility] MPV 9.0(L) 9.4 - 12.9 fL 02/25/2021 3:03 AM [facility] nRBC Absolute 0.00 0 10? 3 /uL 02/25/2021 3:03 AM [facility] nRBC Auto 0.0 0 /100 WBC 02/25/2021 3:03 AM [facility] Neutrophils % 88.7(H) 35.0 - 70.0 % 02/25/2021 3:03 AM [facility] Lymphocytes % 4.1(L) 20.0 - 43.0 % 02/25/2021 3:03 AM [facility] Monocytes % 2.8(L) 5.0 - 13.0 % 02/25/2021 3:03 AM [facility] Eosinophils % 2.2 0.0 - 6.0 % 02/25/2021 3:03 AM [facility] Basophil % 0.4 0.0 - 2.0 % 02/25/2021 3:03 AM [facility] Neutrophils Absolute 24.0(H) 1.6 - 7.0 10? 3 /uL 02/25/2021 3:03 AM [facility] Lymphocyte Absolute 1.1 1.1 - 3.9 10? 3 /uL 02/25/2021 3:03 AM [facility] Monocytes Absolute 0.77 0.26 - 1.07 10? 3 /uL 02/25/2021 3:03 AM [facility] Eosinophils Absolute 0.59(H) 0.00 - 0.47 10? 3 /uL 02/25/2021 3:03 AM [facility] Basophils Absolute 0.10(H) 0.00 - 0.08 10? 3 /uL 02/25/2021 3:03 AM [facility] Immature Granulocytes % 1.8(H) 0.0 - 1.0 % 02/25/2021 3:03 AM [facility] Immature Granulocytes Absolute 0.50 02/25/2021 3:03 AM [facility] Blood BLOOD SPECIMEN / Unknown Venipuncture / Unknown 02/25/2021 2:36 AM CDT 02/25/2021 2:46 AM CDT Fredy Felipe MD LAB - HEMATOLOGY ORD ERABLES [facility] [address] [place] [phone], [facility] [phone] * (ABNORMAL) BASIC METABOLIC PANEL (CALCIUM TOTAL) (02/25/2021 2:36 AM CDT) BUN 7 7 - 26 mg/dL 02/25/2021 3:11 AM [facility] Creatinine 1.02 0.71 - 1.16 mg/dL 02/25/2021 3:11 AM [facility] Sodium 137 136 - 145 mmol/L 02/25/2021 3:11 AM [facility] Potassium 4.8(H) 3.5 - 4.5 mmol/L 02/25/2021 3:11 AM [facility] Chloride 103 98 - 107 mmol/L 02/25/2021 3:11 AM [facility] CO2 21(L) 22 - 29 mmol/L 02/25/2021 3:11 AM [facility] Glucose 142(H) 70 - 115 mg/dL 02/25/2021 3:11 AM [facility] Calcium 8.8 8.4 - 10.2 mg/dL 02/25/2021 3:11 AM [facility] Anion Gap 18 8 - 18 02/25/2021 3:11 AM [facility] BUN/Creatinine Ratio 7 7 - 23 02/25/2021 3:11 AM [facility] Osmolality Calculated 284 270 - 300 mOsm/kg 02/25/2021 3:11 AM [facility] eGFR by CKD-EPI >90 >=90 mL/min/1.7 3 m2 02/25/2021 3:11 AM [facility] Blood BLOOD SPECIMEN / Unknown Venipuncture / Unknown 02/25/2021 2:36 AM CDT 02/25/2021 2:46 AM CDT Fredy Felipe MD LAB - CHEMISTRY JOSE ENRIQUE [facility] Organization Address City/State/[facility] Co de Phone Number [facility] [address] [place] [address], [facility] [phone] * (ABNORMAL) BLOOD GASES ART + COOX PANEL (02/25/2021 2:36 AM CDT) pH Arterial 7.40 7.35 - 7.45 pH 02/25/2021 2:49 AM [facility] pO2 Arterial 119(H) 80 - 100 mmHg 02/25/2021 2:49 AM [facility] pCO2 Arterial 39 35 - 45 mmHg 2:49 AM [facility] HCO3 Arterial 24 20 - 30 mmol/l 02/25/2021 2:49 AM [facility] BE Arterial -0.5 -2.0 - 2.0 mmol/L 02/25/2021 2:49 AM [facility] Oxyhemoglobin Arterial 96.4 % 02/25/2021 2:49 AM [facility] Dexoyhemoglobin (HHB) % 0.5 % 02/25/2021 2:49 AM CDT [facility] Methemoglobin 1.4 0.0 - 2.0 % 02/25/2021 2:49 AM [facility] Carboxyhemoglobin 1.7 0.0 - 2.0 % 2020 2:49 AM [facility] O2 Content Arterial 19.3 Interpret within clinical context mg/dL 02/25/2021 2:49 AM [facility] Hemoglobin by COOX 14.1 12.0 - 17.6 g/dL 02/25/2021 2:49 AM [facility] O2 Saturation Arterial 100 90 - 100 % 02/25/2021 2:49 AM [facility] FI O2 Arterial 60.0 % 02/25/2021 2:49 AM [facility] Blood, arterial ARTERIAL BLOOD SPECIMEN / Unknown Arterial Puncture / Unknown 02/25/2021 2:36 AM CDT 02/25/2021 2:46 AM T [facility] - 02/25/2021 2:49 AM [facility] Carboxyhemoglobin Normal Concentration: Non-smokers: 0-2%; Smokers: 0-9%; Toxic: >20% Fredy Felipe MD LAB - BLOOD GASES OR DERABLES Performing Organization Address City/State/[facility] Co de Phone Number [facility] [address] [place] [phone] [phone] * PT-IN[facility] (02/25/2021 2:36 AM CDT) PT 13.5 12.1 - 14.8 Seconds 02/25/2021 3:01 AM [facility] INR 1.1 See Comment 02/25/2021 3:01 AM [facility] Comment:The suggested therap eutic range for standard coumadin (warfarin) therapy is an INR of 2.0-3.0. For high-risk patients (Mechanical Mitral Valve Prosthesis, etc.), the suggested prophylactic therapeutic range is an INR of 2.5-3.5. Blood BLOOD SPECIMEN / Unknown Venipuncture / Unknown 02/25/2021 2:36 AM CDT 02/25/2021 2:46 AM CDT Fredy Felipe MD LAB - COAGULATION OR DERABLES Performing Organization Address City/[facility]/ZIP Co de Phone Number [address] [address], [place] [phone] * PHOSPHORUS BLOOD (02/25/2021 2:36 AM CDT) Phosphorus 4.8 2.8 - 5.1 mg/dL 02/25/2021 3:11 AM CDT [facility] Blood BLOOD SPECIMEN / Unknown Venipuncture / Unknown 02/25/2021 2:36 AM CDT 02/25/2021 2:46 AM CDT Fredy Felipe MD LAB - CHEMISTRY JOSE ENRIQUE VELA Performing Organization Address City/[facility]/ZIP Co de Phone Number [address] [address], [place] [phone] * MAGNESIUM BLOOD (02/25/2021 2:36 AM CDT) Magnesium 1.6 1.6 - 2.6 mg/dL 02/25/2021 3:11 AM CDT [facility] Blood BLOOD SPECIMEN / Unknown Venipuncture / Unknown 02/25/2021 2:36 AM CDT 02/25/2021 2:46 AM CDT Fredy Felipe MD LAB - CHEMISTRY JOSE ENRIQUE VELA [address] [address], [place] [phone] * (ABNORMAL) CALCIUM IONIZED WHOLE BLOOD (02/25/2021 2:36 AM CDT) Calcium Ionized 1.10 mmol/L 02/25/2021 2:49 AM CDT [facility] pH 7.42 7.35 - 7.45 pH 02/25/2021 2:49 AM CDT [facility] Ionized Calcium pH Adjusted 1.11(L) 1.19 - 1.34 mmol/L 02/25/2021 2:49 AM CDT [facility] Blood BLOOD SPECIMEN / Unknown Venipuncture / Unknown 02/25/2021 2:36 AM CDT 02/25/2021 2:46 AM CDT Fredy Felipe MD LAB - CHEMISTRY [facility] EN[facility]QUE [facility] Organization Address City/State/ZIP Co de Phone Number [facility] [address] [place] [address], [facility] [phone] * XR ABDOMEN KUB PORTABLE (02/25/2021 1:32 AM CDT) Anatomical Region Laterality Modality Abdomen Radiographic Sera ging 02/25/2021 8:31 AM CDT Impressions 02/25/2021 1:30 PM CDT IMPRESSION: Examination limited by patient's obesity. Non-obstructive bowel gas pattern, no evidence of retained surgical material. Dictated by Rico Sawant D.O. (Solar System Designer) I, Dr. TAINA PAVON have personally reviewed [...] surgical material. Dictated by Rico Sawant D.O. (Solar System Designer) I, Dr. TAINA PAVON have personally reviewed and interpreted this examination/study. This report was electronically signed by TAINA PAVON on 02/25/2021 1:30 PM . Nena Obrien DO DIAGNOSTIC IMAGING O RDERABLES * TYPE + SCREEN PANEL (02/24/2021 10:10 AM CDT) Antibody Screen NEG 11:29 AM CDT [facility] ABO Rh O POS 02/24/2021 11:29 AM CDT [facility] Blood Bank BLOOD SPECIMEN / Unknown Venipuncture / Unknown 02/24/2021 10:10 AM CDT 02/24/2021 10:35 AM CDT Mario Garcia MD LAB - BLOOD BANK ORD ERABLES [facility] [address] [place] [address], [facility] [phone] * XR CHEST 1VW PORTABLE (02/24/2021 5:51 [...] Report dictated by Simone Alexander MD, PhD (executive assistant to president). I, Dr. TAINA PAVON have personally reviewed [...] The cardiothymic silhouetteis stable. Report dictated by Simnoe Alexander MD, PhD (executive assistant to president). Dr. TAINA Yao have personally reviewed and interpreted this examination/study. This report was electronically signed by TAINA PAVON on 02/25/2021 1:44 PM . Fredy Felipe MD DIAGNOSTIC IMAGING O RDERABLES * (ABNORMAL) CBC W AUTO DIFFERENTIAL (02/24/2021 12:28 AM CD) WBC 13.9(H) 3.5 - 10.5 10? 3 /uL 02/24/2021 12:42 AM [facility] RBC 4.24(L) 4.30 - 5.70 10? 6 /uL 02/24/2021 12:42 AM [facility] Hemoglobin 11.8(L) 12.0 - 17.6 g/dL 02/24/2021 12:42 AM [facility] Hematocrit 36.4 35.2 - 51.7 % 02/24/2021 12:42 AM [facility] MCV 85.8 80.7 - 98.3 fL 02/24/2021 12:42 AM [facility] MCH 27.8 26.7 - 34.0 pg 02/24/2021 12:42 AM [facility] MCHC 32.4 30.8 - 35.9 g/dL 02/24/2021 12:42 AM [facility] Platelet Count 402(H) 150 - 400 10? 3 /uL 02/24/2021 12:42 AM [facility] RDW-SD 42.7 36.0 - 50.0 fL 02/24/2021 12:42 AM [facility] RDW-CV 13.8 11.2 - 14.8 % 02/24/2021 12:42 AM [facility] MPV 9.0(L) 9.4 - 12.9 fL 02/24/2021 12:42 AM [facility] nRBC Absolute 0.00 0 10? 3 /uL 02/24/2021 12:42 AM [facility] nRBC Auto 0.0 0 /100 WBC 02/24/2021 12:42 AM [facility] Neutrophils % 76.6(H) 35.0 - 70.0 % 02/24/2021 12:42 AM [facility] Lymphocytes % 10.0(L) 20.0 - 43.0 % 02/24/2021 12:42 AM [facility] Monocytes % 7.6 5.0 - 13.0 % 02/24/2021 12:42 AM [facility] Eosinophils % 3.8 0.0 - 6.0 % 02/24/2021 12:42 AM [facility] Basophil % 0.4 0.0 - 2.0 % 02/24/2021 12:42 AM [facility] Neutrophils Absolute 10.7(H) 1.6 - 7.0 10? 3 /uL 02/24/2021 12:42 AM [facility] Lymphocyte Absolute 1.4 1.1 - 3.9 10? 3 /uL 02/24/2021 12:42 AM [facility] Monocytes Absolute 1.06 0.26 - 1.07 10? 3 /uL 02/24/2021 12:42 AM [facility] Eosinophils Absolute 0.53(H) 0.00 - 0.47 10? 3 /uL 02/24/2021 12:42 AM [facility] Basophils Absolute 0.05 0.00 - 0.08 10? 3 /uL 02/24/2021 12:42 AM [facility] Immature Granulocytes % 1.6(H) 0.0 - 1.0 % 02/24/2021 12:42 AM [facility] Immature Granulocytes Absolute 0.22 02/24/2021 12:42 AM [facility] Blood BLOOD SPECIMEN / Unknown Venipuncture / Unknown 02/24/2021 12:28 AM CDT 02/24/2021 12:37 AM CDT Fredy Felipe MD LAB - HEMATOLOGY ORD ERABLES [facility] [address] [place] [id number], [facility] [phone] * (ABNORMAL) BASIC METABOLIC PANEL (CALCIUM TOTAL) (02/24/2021 12:28 AM CDT) BUN 6(L) 7 - 26 mg/dL 02/24/2021 1:02 AM [facility] Creatinine 0.65(L) 0.71 - 1.16 mg/dL 02/24/2021 1:02 AM [facility] Sodium 138 136 - 145 mmol/L 02/24/2021 1:02 AM [facility] Potassium 4.2 3.5 - 4.5 mmol/L 02/24/2021 1:02 AM [facility] Chloride 103 98 - 107 mmol/L 02/24/2021 1:02 AM [facility] CO2 25 22 - 29 mmol/L 02/24/2021 1:02 AM [facility] Glucose 131(H) 70 - 115 mg/dL 02/24/2021 1:02 AM [facility] Calcium 8.4 8.4 - 10.2 mg/dL 02/24/2021 1:02 AM [facility] Anion Gap 14 8 - 18 02/24/2021 1:02 AM [facility] BUN/Creatinine Ratio 9 7 - 23 02/24/2021 1:02 AM [facility] Osmolality Calculated 285 270 - 300 mOsm/kg 02/24/2021 1:02 AM [facility] eGFR by CKD-EPI >90 >=90 mL/min/1.7 3 m2 02/24/2021 1:02 AM [facility] Blood BLOOD SPECIMEN / Unknown Venipuncture / Unknown 02/24/2021 12:28 AM CDT 02/24/2021 12:37 AM T Fredy Felipe MD LAB - CHEMISTRY JOSE ENRIQUE VELA [facility] Organization Address City/State/ZIP Co de Phone Number [facility] [address] [place] [address], [facility] [phone] * (ABNORMAL) BLOOD GASES ART + COOX PANEL (02/24/2021 12:28 AM CDT) pH Arterial 7.44 7.35 - 7.45 pH 02/24/2021 12:37 AM [facility] pO2 Arterial 110(H) 80 - 100 mmHg 02/24/2021 12:37 AM [facility] pCO2 Arterial 41 35 - 45 mmHg 12:37 AM [facility] HCO3 Arterial 28 20 - 30 mmol/l 02/24/2021 12:37 AM [facility] BE Arterial 3.3(H) -2.0 - 2.0 mmol/L 02/24/2021 12:37 AM [facility] Oxyhemoglobin Arterial 96.5 % 02/24/2021 12:37 AM [facility] Dexoyhemoglobin (HHB) % 1.0 % 02/24/2021 12:37 AM [facility] Methemoglobin <0.8 0.0 - 2.0 % 02/24/2021 12:37 AM [facility] Carboxyhemoglobin 1.8 0.0 - 2.0 % 2020 12:37 AM [facility] O2 Content Arterial 16.6 Interpret within clinical context mg/dL 02/24/2021 12:37 AM [facility] Hemoglobin by COOX 12.1 12.0 - 17.6 g/dL 02/24/2021 12:37 AM [facility] O2 Saturation Arterial 99 90 - 100 % 02/24/2021 12:37 AM [facility] FI O2 Arterial 45.0 % 02/24/2021 12:37 AM [facility] Blood, arterial ARTERIAL BLOOD SPECIMEN / Unknown Arterial Puncture / Unknown 02/24/2021 12:28 AM T 02/24/2021 12:34 AM [facility] - 02/24/2021 12:37 AM [facility] Carboxyhemoglobin Normal Concentration: Non-smokers: 0-2%; Smokers: 0-9%; Toxic: >20% Fredy Felipe MD LAB - BLOOD GASES OR DERABLES [facility] [address] [place] [id number], [facility] [phone] * PT-INR [facility] (02/24/2021 12:28 AM [facility]) PT 14.2 12.1 - 14.8 Seconds 02/24/2021 12:45 AM [facility] INR 1.1 See Comment 02/24/2021 12:45 AM CDT [facility] Comment:The suggested therap eutic range for standard coumadin (warfarin) therapy is an INR of 2.0-3.0. For high-risk patients (Mechanical Mitral Valve Prosthesis, etc.), the suggested prophylactic therapeutic range is an INR of 2.5-3.5. Blood BLOOD SPECIMEN / Unknown Venipuncture / Unknown 02/24/2021 12:28 AM CDT 02/24/2021 12:37 AM CDT Fredy Felipe MD LAB - COAGULATION OR DERABLES Performing Organization Address City/[facility]/ZIP Co de Phone Number [address] [address], [place] [phone] * PHOSPHORUS BLOOD (02/24/2021 12:28 AM CDT) Phosphorus 3.9 2.8 - 5.1 mg/dL 02/24/2021 1:02 AM CDT [facility] Blood BLOOD SPECIMEN / Unknown Venipuncture / Unknown 02/24/2021 12:28 AM CDT 02/24/2021 12:37 AM CDT Fredy Felipe MD LAB - CHEMISTRY [facility] Performing Organization Address [facility]/ZIP Co de Phone Number [address] [address], [place] [phone] * MAGNESIUM BLOOD (02/24/2021 12:28 AM CDT) Magnesium 1.8 1.6 - 2.6 mg/dL 02/24/2021 1:02 AM CDT [facility] Blood BLOOD SPECIMEN / Unknown Venipuncture / Unknown 02/24/2021 12:28 AM CDT 02/24/2021 12:37 AM CDT Fredy Felipe MD LAB - CHEMISTRY [facility] EN[facility]ELA Performing Organization Address City/[facility]/ZIP Co de Phone Number [address] [address], [place] [phone] * (ABNORMAL) CALCIUM IONIZED WHOLE BLOOD (02/24/2021 12:28 AM CDT) Calcium Ionized 1.16 mmol/L 02/24/2021 12:40 AM CDT [facility] pH 7.45 7.35 - 7.45 pH 02/24/2021 12:40 AM CDT [facility] Ionized Calcium pH Adjusted 1.18(L) 1.19 - 1.34 mmol/L 02/24/2021 12:40 AM CDT [facility] Blood BLOOD SPECIMEN / Unknown Venipuncture / Unknown 02/24/2021 12:28 AM CDT 02/24/2021 12:34 AM CDT Fredy Felipe MD LAB - CHEMISTRY JOSE ENRIQUE VELA [facility] [address] [place] [address], [facility] [phone] * XR CHEST 1VW PORTABLE (02/23/2021 5:05 AM CDT) Anatomical Region Laterality Modality Chest Radiographic Sera ging 02/23/2021 5:19 AM CDT Impressions 02/23/2021 10:53 AM CDT FINDINGS/IMPRESSION: An endotracheal tube terminates in mid thoracic trachea. A left subclavian approach central venous catheter terminates in the left brachiocephalic vein. A gastric tube courses to the stomach out of the [id number]. A right thoracostomy tube is unchanged in position. Small bilateral pleural effusions are suggested. Bibasilar airspace opacities may represent atelectasis and/or airspace disease. There is no pneumothorax. The cardiomediastinal silhouette is partially obscured. Dictated by Alverto Ames MD (executive assistant to president). I, Dr. NENA CLEMENTE have personally reviewed [...] courses to the stomach out of the [id number]. A right thoracostomy tube is unchanged in position. Small bilateral pleural effusions are suggested. Bibasilar airspace opacities may represent atelectasis and/or airspace disease. There is no pneumothorax. The cardiomediastinal silhouette is partially obscured. Dictated by Alverto Ames MD (executive assistant to president). I, Dr. NENA CLEMENTE have personally reviewed and interpreted this examination/study. This report was electronically signed by NENA CLEMENTE on 02/23/2021 10:53 AM . Fredy Felipe MD DIAGNOSTIC IMAGING O RDERABLES * PREPARE (CROSSMATCH) RBC UNIT(S), 2 Units (02/23/2021 1:17 AM CDT) Unit Description AS1 LR PRBC [facility] BLOOD BANK LAB Unit ABO O [facility] B[facility]OD [facility] Unit Rh POS [facility] B[facility]OD [facility] Product Number R02 [facility] B LOOD BANK LAB Unit Donor # [id number] [facility] BLOOD [facility] LAB Unit Status released [facility] BLOO D BANK LAB Product Code [id number] [facility] BLO OD BANK LAB Blood Type Barcode 5100 [facility] B[facility]OD [facility] LAB Expiration Date S BLOOD BANK LAB Unit Description AS1 LR PRBC [facility] BLOOD [facility] LAB Unit ABO O [facility] BLOOD [facility] LAB Unit Rh POS [facility] BLOOD [facility] LAB Product Number R02 [facility] B LOOD BANK LAB Unit Donor # [id number] [facility] BLOOD [facility] LAB Unit Status released [facility] BLOO D BANK LAB Product Code [id number] [facility] BLO OD BANK LAB Blood Type Barcode 5100 [facility] BLOOD B[facility] LAB Expiration Date [id number] S BLOOD BANK LAB Blood Bank BLOOD SPECIMEN / Unknown 02/19/2021 7:34 AM CDT Fredy Felipe MD LAB - BLOOD BANK ORD ERABLES [facility] BLOOD BANK LAB [address] [place] [address], [facility] [phone] * (ABNORMAL) CBC W AUTO DIFFERENTIAL (02/23/2021 12:21 AM CDT) WBC 13.5(H) 3.5 - 10.5 10? 3 /uL 02/23/2021 1:02 AM [facility] RBC 4.32 4.30 - 5.70 10? 6 /uL 02/23/2021 1:02 AM [facility] Hemoglobin 12.0 12.0 - 17.6 g/dL 02/23/2021 1:02 AM [facility] Hematocrit 38.1 35.2 - 51.7 % 02/23/2021 1:02 AM [facility] MCV 88.2 80.7 - 98.3 fL 02/23/2021 1:02 AM [facility] MCH 27.8 26.7 - 34.0 pg 02/23/2021 1:02 AM [facility] MCHC 31.5 30.8 - 35.9 g/dL 02/23/2021 1:02 AM [facility] Platelet Count 403(H) 150 - 400 10? 3 /uL 02/23/2021 1:02 AM [facility] RDW-SD 45.1 36.0 - 50.0 fL 02/23/2021 1:02 AM [facility] RDW-CV 14.0 11.2 - 14.8 % 02/23/2021 1:02 AM [facility] MPV 9.2(L) 9.4 - 12.9 fL 02/23/2021 1:02 AM [facility] nRBC Absolute 0.00 0 10? 3 /uL 02/23/2021 1:02 AM [facility] nRBC Auto 0.0 0 /100 WBC 02/23/2021 1:02 AM [facility] Neutrophils % 74.4(H) 35.0 - 70.0 % 02/23/2021 1:02 AM [facility] Lymphocytes % 10.5(L) 20.0 - 43.0 % 02/23/2021 1:02 AM [facility] Monocytes % 9.6 5.0 - 13.0 % 02/23/2021 1:02 AM [facility] Eosinophils % 4.0 0.0 - 6.0 % 02/23/2021 1:02 AM [facility] Basophil % 0.2 0.0 - 2.0 % 02/23/2021 1:02 AM [facility] Neutrophils Absolute 10.0(H) 1.6 - 7.0 10? 3 /uL 02/23/2021 1:02 AM [facility] Lymphocyte Absolute 1.4 1.1 - 3.9 10? 3 /uL 02/23/2021 1:02 AM [facility] Monocytes Absolute 1.30(H) 0.26 - 1.07 10? 3 /uL 02/23/2021 1:02 AM [facility] Eosinophils Absolute 0.54(H) 0.00 - 0.47 10? 3 /uL 02/23/2021 1:02 AM [facility] Basophils Absolute 0.03 0.00 - 0.08 10? 3 /uL 02/23/2021 1:02 AM [facility] Immature Granulocytes % 1.3(H) 0.0 - 1.0 % 02/23/2021 1:02 AM [facility] Immature Granulocytes Absolute 0.18 02/23/2021 1:02 AM [facility] Blood BLOOD SPECIMEN / Unknown Venipuncture / Unknown 02/23/2021 12:21 AM CDT 02/23/2021 12:57 AM CDT Fredy Felipe MD LAB - HEMATOLOGY ORD ERABLES [facility] [address] [place] [address], [facility] [phone] * (ABNORMAL) BASIC METABOLIC PANEL (CALCIUM TOTAL) (02/23/2021 12:21 AM [facility]) BUN 10 7 - 26 mg/dL 02/23/2021 1:22 AM [facility] Creatinine 0.84 0.71 - 1.16 mg/dL 02/23/2021 1:22 AM [facility] Sodium 139 136 - 145 mmol/L 02/23/2021 1:22 AM [facility] Potassium 4.2 3.5 - 4.5 mmol/L 02/23/2021 1:22 AM [facility] Chloride 103 98 - 107 mmol/L 02/23/2021 1:22 AM [facility] CO2 30(H) 22 - 29 mmol/L 02/23/2021 1:22 AM [facility] Glucose 145(H) 70 - 115 mg/dL 02/23/2021 1:22 AM [facility] Calcium 8.4 8.4 - 10.2 mg/dL 02/23/2021 1:22 AM [facility] Anion Gap 10 8 - 18 02/23/2021 1:22 AM [facility] BUN/Creatinine Ratio 12 7 - 23 02/23/2021 1:22 AM [facility] Osmolality Calculated 290 270 - 300 mOsm/kg 02/23/2021 1:22 AM [facility] eGFR by CKD-EPI >90 >=90 mL/min/1.7 3 m2 02/23/2021 1:22 AM [facility] Blood BLOOD SPECIMEN / Unknown Venipuncture / Unknown 02/23/2021 12:21 AM CDT 02/23/2021 12:57 AM [facility] Fredy Felipe MD LAB - CHEMISTRY JOSE ENRIQUE VELA [facility] [address] [place] [address], [facility] [phone] * (ABNORMAL) BLOOD GASES ART + COOX PANEL (02/23/2021 12:21 AM [facility]) pH Arterial 7.43 7.35 - 7.45 pH 02/23/2021 1:02 AM [facility] pO2 Arterial 110(H) 80 - 100 mmHg 02/23/2021 1:02 AM [facility] pCO2 Arterial 44 35 - 45 mmHg 1:02 AM [facility] HCO3 Arterial 29 20 - 30 mmol/l 02/23/2021 1:02 AM [facility] BE Arterial 4.3(H) -2.0 - 2.0 mmol/L 02/23/2021 1:02 AM [facility] Oxyhemoglobin Arterial 97.1 % 02/23/2021 1:02 AM [facility] Dexoyhemoglobin (HHB) % 0.6 % 02/23/2021 1:02 AM [facility] Methemoglobin 0.8 0.0 - 2.0 % 02/23/2021 1:02 AM [facility] Carboxyhemoglobin 1.5 0.0 - 2.0 % 2020 1:02 AM [facility] O2 Content Arterial 17.5 Interpret within clinical context mg/dL 02/23/2021 1:02 AM [facility] Hemoglobin by COOX 12.7 12.0 - 17.6 g/dL 02/23/2021 1:02 AM [facility] O2 Saturation Arterial 99 90 - 100 % 02/23/2021 1:02 AM [facility] FI O2 Arterial 55.0 % 02/23/2021 1:02 AM [facility] Blood, arterial ARTERIAL BLOOD SPECIMEN / Unknown Arterial Puncture / Unknown 02/23/2021 12:21 AM [facility] 02/23/2021 12:55 AM [facility] - 02/23/2021 1:02 AM [facility] Carboxyhemoglobin Normal Concentration: Non-smokers: 0-2%; Smokers: 0-9%; Toxic: >20% Fredy Felipe MD LAB - BLOOD GASES OR DERABLES Performing Organization Address City/[facility]/ZIP Co de Phone Number [facility] [address] [place] [address], [facility] [phone] * PT-INR [facility] (02/23/2021 12:21 AM CDT) PT 14.4 12.1 - 14.8 Seconds 02/23/2021 1:07 AM CDT [facility] INR 1.2 See Comment 02/23/2021 1:07 AM CDT [facility] Comment:The suggested therap eutic range for standard coumadin (warfarin) therapy is an INR of 2.0-3.0. For high-risk patients (Mechanical Mitral Valve Prosthesis, etc.), the suggested prophylactic therapeutic range is an INR of 2.5-3.5. Blood BLOOD SPECIMEN / Unknown Venipuncture / Unknown 02/23/2021 12:21 AM CDT 02/23/2021 12:59 AM CDT Fredy Feliep MD LAB - COAGULATION OR DERABLES Performing Organization Address [facility]/ZIP Co de Phone Number [address] [address], [facility] [phone] * PHOSPHORUS BLOOD (02/23/2021 12:21 AM CDT) Pathologist [facility] Phosphorus 3.9 2.8 - 5.1 mg/dL 02/23/2021 1:22 AM CDT [facility] Blood BLOOD SPECIMEN / Unknown Venipuncture / Unknown 02/23/2021 12:21 AM CDT 02/23/2021 12:57 AM CDT Fredy Felipe MD LAB - CHEMISTRY ORDNolan RABLES [address] [address], [facility] [phone] * MAGNESIUM BLOOD (02/23/2021 12:21 AM CDT) Magnesium 2.1 1.6 - 2.6 mg/dL 02/23/2021 1:22 AM CDT [facility] Blood BLOOD SPECIMEN / Unknown Venipuncture / Unknown 02/23/2021 12:21 AM CDT 02/23/2021 12:57 AM CDT Fredy Felipe MD LAB - CHEMISTRY JOSE ENRIQUE VELA Performing Organization Address City/[facility]/ZIP Co de Phone Number [address] [address], [facility] [phone] * (ABNORMAL) CALCIUM IONIZED WHOLE BLOOD (02/23/2021 12:21 AM CDT) Calcium Ionized 1.12 mmol/L 02/23/2021 1:05 AM CDT [facility] pH 7.44 7.35 - 7.45 pH 02/23/2021 1:05 AM CDT [facility] Ionized Calcium pH Adjusted 1.14(L) 1.19 - 1.34 mmol/L 02/23/2021 1:05 AM CDT [facility] Blood BLOOD SPECIMEN / Unknown Venipuncture / Unknown 02/23/2021 12:21 AM CDT 02/23/2021 12:55 AM CDT Fredy Felipe MD LAB - CHEMISTRY JOSE ENRIQUE VELA Performing Organization Address City/[facility]/ZIP Co de Phone Number [address] [address], [place] [phone] * CREATININE URINE RANDOM (02/22/2021 5:45 AM CDT) Creatinine Urine 212 Not Established mg/dL 02/22/2021 6:25 AM CDT [facility] Urine URINE SPECIMEN OBTAINED BY CLEAN CATCH PROCEDURE / Unknown Collection / Unknown 02/22/2021 5:45 AM CDT 02/22/2021 6:13 AM CDT Dino Hudson PA-C LAB - URINE CHEMI STRY ORDERABLES [address] [address], [facility] [phone] * UREA NITROGEN URINE RANDOM (02/22/2021 5:45 AM CDT) Urea Nitrogen Random Urine 1,198 Not Established mg/dL 02/22/2021 6:25 AM CDT [facility] Urine URINE SPECIMEN OBTAINED BY CLEAN CATCH PROCEDURE / Unknown Collection / Unknown 02/22/2021 5:45 AM CDT 02/22/2021 6:13 AM CDT Dino MORIN-C LAB - URINE CHEMI STRY ORDERABLES [address] [address], [facility] [phone] * SODIUM URINE RANDOM (02/22/2021 5:45 AM CDT) Sodium Urine 56 Not Established mmol/L 02/22/2021 6:25 AM CDT [facility] Urine URINE SPECIMEN OBTAINED BY CLEAN CATCH PROCEDURE / Unknown Collection / Unknown 02/22/2021 5:45 AM CDT 02/22/2021 6:13 AM CDT Dino MORIN-C LAB - URINE CHEMI STRY ORDERABLES [address] [address], [facility] [phone] * (ABNORMAL) URINALYSIS W/MICROSCOPIC NO CULTURE (02/22/2021 5:44 AM CDT) Color UA Janis(A) Straw, Yellow 02/22/2021 6:08 AM CDT [facility] Clarity UA Slt Cloudy(A) Clear 02/22/2021 6:08 AM CDT [facility] Specific [place] UA 1.024 1.005 - 1.030 02/22/2021 6:08 AM CDT [facility] pH UA 5.0 5.0 - 8.0 pH 02/22/2021 6:08 AM [facility] Protein UA 1+(A) Negative 02/22/2021 6:08 AM [facility] Glucose UA Negative Negative 02/22/2021 6:08 AM [facility] Ketone UA Negative Negative 02/22/2021 6:08 AM [facility] Bilirubin UA Negative Negative 02/22/2021 6:08 AM [facility] Blood UA 2+(A) Negative 02/22/2021 6:08 AM [facility] Nitrite UA Negative Negative 02/22/2021 6:08 AM [facility] Leukocyte Esterase Negative Negative 02/22/2021 6:08 AM [facility] Urobilinogen UA Negative Negative mg/dL 02/22/2021 6:08 AM [facility] RBC UA 51-100(A) None Seen, 0-2, 3-5 /HPF 02/22/2021 6:08 AM [facility] WBC UA 6-10(A) None Seen, 0-5 /HPF 02/22/2021 6:08 AM [facility] Bacteria UA 1+(A) None /HPF 02/22/2021 6:08 AM [facility] Squamous Epithelial Cells UA None Seen None Seen, 0-2, 3-5 /HPF 02/22/2021 6:08 AM [facility] Mucus UA 1+ /LPF 02/22/2021 6:08 AM [facility] Urine URINE SPECIMEN OBTAINED VIA [employer] [facility]IN[facility] [employer]HETER / Unknown Collection / Unknown 02/22/2021 5:44 AM CDT 02/22/2021 5:49 AM [facility] - 02/22/2021 6:08 AM CDT Dino Hudson PA-C LAB - URINALYSIS ORDERABLES [address] [address], [facility] [phone] * XR CHEST 1VW PORTABLE (02/22/2021 4:54 [...] ART + COOX PANEL (02/22/2021 3:17 AM [facility]) pH Arterial 7.41 7.35 - 7.45 pH 02/22/2021 3:23 AM [facility] pO2 Arterial 94 80 - 100 mmHg 02/22/2021 3:23 AM [facility] pCO2 Arterial 46(H) 35 - 45 mmHg 3:23 AM [facility] HCO3 Arterial 29 20 - 30 mmol/l 02/22/2021 3:23 AM [facility] BE Arterial 3.8(H) -2.0 - 2.0 mmol/L 02/22/2021 3:23 AM [facility] Oxyhemoglobin Arterial 96.7 % 02/22/2021 3:23 AM [facility] Dexoyhemoglobin (HHB) % 0.8 % 02/22/2021 3:23 AM [facility] Methemoglobin <0.8 0.0 - 2.0 % 02/22/2021 3:23 AM [facility] Carboxyhemoglobin 2.2(H) 0.0 - 2.0 % 2020 3:23 AM [facility] O2 Content Arterial 19.2 Interpret within clinical context mg/dL 02/22/2021 3:23 AM [facility] Hemoglobin by COOX 14.1 12.0 - 17.6 g/dL 02/22/2021 3:23 AM [facility] O2 Saturation Arterial 99 90 - 100 % 02/22/2021 3:23 AM [facility] FI O2 Arterial 55.0 % 02/22/2021 3:23 AM [facility] Blood, arterial ARTERIAL BLOOD SPECIMEN / Unknown Arterial Puncture / Unknown 02/22/2021 3:17 AM CDT 02/22/2021 3:20 AM [facility] - 02/22/2021 3:23 AM [facility] Carboxyhemoglobin Normal Concentration: Non-smokers: 0-2%; Smokers: 0-9%; Toxic: >20% Dino Hudson PA-C LAB - BLOOD GASES ORDERABLES [facility]OR[facility]ORY [facility] [address] [place] [address], [facility] [phone] * (ABNORMAL) CBC W AUTO DIFFERENTIAL (02/21/2021 11:12 PM CDT) WBC 14.5(H) 3.5 - 10.5 10? 3 /uL 02/21/2021 11:21 PM CDT [facility] RBC 4.88 4.30 - 5.70 10? 6 /uL 02/21/2021 11:21 PM [facility] Hemoglobin 13.7 12.0 - 17.6 g/dL 02/21/2021 11:21 PM [facility] Hematocrit 41.8 35.2 - 51.7 % 02/21/2021 11:21 PM [facility] MCV 85.7 80.7 - 98.3 fL 02/21/2021 11:21 PM [facility] MCH 28.1 26.7 - 34.0 pg 02/21/2021 11:21 PM [facility] MCHC 32.8 30.8 - 35.9 g/dL 02/21/2021 11:21 PM [facility] Platelet Count 374 150 - 400 10? 3 /uL 02/21/2021 11:21 PM [facility] RDW-SD 42.4 36.0 - 50.0 fL 02/21/2021 11:21 PM [facility] RDW-CV 13.7 11.2 - 14.8 % 02/21/2021 11:21 PM [facility] MPV 9.1(L) 9.4 - 12.9 fL 02/21/2021 11:21 PM [facility] nRBC Absolute 0.00 0 10? 3 /uL 02/21/2021 11:21 PM [facility] nRBC Auto 0.0 0 /100 WBC 02/21/2021 11:21 PM [facility] Neutrophils % 82.8(H) 35.0 - 70.0 % 02/21/2021 11:21 PM [facility] Lymphocytes % 6.9(L) 20.0 - 43.0 % 02/21/2021 11:21 PM [facility] Monocytes % 7.6 5.0 - 13.0 % 02/21/2021 11:21 PM [facility] Eosinophils % 1.0 0.0 - 6.0 % 02/21/2021 11:21 PM [facility] Basophil % 0.3 0.0 - 2.0 % 02/21/2021 11:21 PM [facility] Neutrophils Absolute 12.0(H) 1.6 - 7.0 10? 3 /uL 02/21/2021 11:21 PM [facility] Lymphocyte Absolute 1.0(L) 1.1 - 3.9 10? 3 /uL 02/21/2021 11:21 PM [facility] Monocytes Absolute 1.10(H) 0.26 - 1.07 10? 3 /uL 02/21/2021 11:21 PM [facility] Eosinophils Absolute 0.14 0.00 - 0.47 10? 3 /uL 02/21/2021 11:21 PM [facility] Basophils Absolute 0.05 0.00 - 0.08 10? 3 /uL 02/21/2021 11:21 PM [facility] Immature Granulocytes % 1.4(H) 0.0 - 1.0 % 02/21/2021 11:21 PM [facility] Immature Granulocytes Absolute 0.21 02/21/2021 11:21 PM [facility] Blood BLOOD SPECIMEN / Unknown Venipuncture / Unknown 02/21/2021 11:12 PM CDT 02/21/2021 11:17 PM [facility] Fredy Felipe MD LAB - HEMATOLOGY ORD ERABLES [facility] [address] [place] [address], [facility] [phone] * (ABNORMAL) BASIC METABOLIC PANEL (CALCIUM TOTAL) (02/21/2021 11:12 PM CDT) BUN 15 7 - 26 mg/dL 02/21/2021 11:42 PM [facility] Creatinine 1.13 0.71 - 1.16 mg/dL 02/21/2021 11:42 PM [facility] Sodium 141 136 - 145 mmol/L 02/21/2021 11:42 PM [facility] Potassium 4.3 3.5 - 4.5 mmol/L 02/21/2021 11:42 PM [facility] Chloride 105 98 - 107 mmol/L 02/21/2021 11:42 PM [facility] CO2 22 22 - 29 mmol/L 02/21/2021 11:42 PM [facility] Glucose 126(H) 70 - 115 mg/dL 02/21/2021 11:42 PM [facility] Calcium 8.5 8.4 - 10.2 mg/dL 02/21/2021 11:42 PM [facility] Anion Gap 18 8 - 18 02/21/2021 11:42 PM [facility] BUN/Creatinine Ratio 13 7 - 23 02/21/2021 11:42 PM [facility] Osmolality Calculated 294 270 - 300 mOsm/kg 02/21/2021 11:42 PM [facility] eGFR by CKD-EPI 84(L) >=90 mL/min/1.7 3 m2 02/21/2021 11:42 PM [facility] Blood BLOOD SPECIMEN / Unknown Venipuncture / Unknown 02/21/2021 11:12 PM CDT 02/21/2021 11:16 PM CDT Fredy Felipe MD LAB - CHEMISTRY JOSE ENRIQUE VELA [facility] Organization Address City/State/ZIP Co de Phone Number [facility] [address] [place] [address], [facility] [phone] * (ABNORMAL) BLOOD GASES ART + COOX PANEL (02/21/2021 11:12 PM CDT) pH Arterial 7.60(H) 7.35 - 7.45 pH 02/21/2021 11:20 PM [facility] pO2 Arterial 185(H) 80 - 100 mmHg 02/21/2021 11:20 PM [facility] pCO2 Arterial 26(L) 35 - 45 mmHg 11:20 PM [facility] HCO3 Arterial 26 20 - 30 mmol/l 02/21/2021 11:20 PM [facility] BE Arterial 5.1(H) -2.0 - 2.0 mmol/L 02/21/2021 11:20 PM [facility] Oxyhemoglobin Arterial 97.5 % 02/21/2021 11:20 PM [facility] Dexoyhemoglobin (HHB) % 0.3 % 02/21/2021 11:20 PM [facility] Methemoglobin 0.9 0.0 - 2.0 % 02/21/2021 11:20 PM [facility] Carboxyhemoglobin 1.3 0.0 - 2.0 % 2020 11:20 PM [facility] O2 Content Arterial 20.2 Interpret within clinical context mg/dL 02/21/2021 11:20 PM [facility] Hemoglobin by COOX 14.5 12.0 - 17.6 g/dL 02/21/2021 11:20 PM [facility] O2 Saturation Arterial 100 90 - 100 % 02/21/2021 11:20 PM [facility] FI O2 Arterial 60.0 % 02/21/2021 11:20 PM [facility] Blood, arterial ARTERIAL BLOOD SPECIMEN / Unknown Arterial Puncture / Unknown 02/21/2021 11:12 PM CDT 02/21/2021 11:18 PM [facility] - 02/21/2021 11:20 PM [facility] Carboxyhemoglobin Normal Concentration: Non-smokers: 0-2%; Smokers: 0-9%; Toxic: >20% Fredy Felipe MD LAB - BLOOD GASES OR DERABLES [facility] [address] [place] [address], [facility] [phone] * (ABNORMAL) PT-INR [facility] (02/21/2021 11:12 PM CDT) PT 15.2(H) 12.1 - 14.8 Seconds 02/21/2021 11:31 PM CDT [facility] INR 1.2 See Comment 02/21/2021 11:31 PM CDT [facility] Comment:The suggested therap eutic range for standard coumadin (warfarin) therapy is an INR of 2.0-3.0. For high-risk patients (Mechanical Mitral Valve Prosthesis, etc.), the suggested prophylactic therapeutic range is an INR of 2.5-3.5. Blood BLOOD SPECIMEN / Unknown Venipuncture / Unknown 02/21/2021 11:12 PM CDT 02/21/2021 11:18 PM CDT Fredy Felipe MD LAB - COAGULATION OR DERABLES Performing Organization Address City/[facility]/ZIP Co de Phone Number [address] [address], [facility] [phone] * PHOSPHORUS BLOOD (02/21/2021 11:12 PM CDT) Phosphorus 3.5 2.8 - 5.1 mg/dL 02/21/2021 11:42 PM CDT [facility] Blood BLOOD SPECIMEN / Unknown Venipuncture / Unknown 02/21/2021 11:12 PM CDT 02/21/2021 11:16 PM CDT Fredy Felipe MD LAB - CHEMISTRY ORDE RABLES [address] [address], [facility] [phone] * MAGNESIUM BLOOD (02/21/2021 11:12 PM CDT) Magnesium 1.8 1.6 - 2.6 mg/dL 02/21/2021 11:42 PM CDT [facility] Blood BLOOD SPECIMEN / Unknown Venipuncture / Unknown 02/21/2021 11:12 PM CDT 02/21/2021 11:16 PM CDT Fredy Felipe MD LAB - CHEMISTRY JOSE ENRIQUE VELA Performing Organization Address [facility]/ZIP Co de Phone Number [address] [address], [facility] [phone] * (ABNORMAL) CALCIUM IONIZED WHOLE BLOOD (02/21/2021 11:12 PM CDT) Calcium Ionized 1.10 mmol/L 02/21/2021 11:21 PM CDT [facility] pH 7.62(H) 7.35 - 7.45 pH 02/21/2021 11:21 PM CDT [facility] Ionized Calcium pH Adjusted 1.20 1.19 - 1.34 mmol/L 02/21/2021 11:21 PM CDT [facility] Blood BLOOD SPECIMEN / Unknown Venipuncture / Unknown 02/21/2021 11:12 PM CDT 02/21/2021 11:18 PM CDT Fredy Felipe MD LAB - CHEMISTRY JOSE ENRIQUE VELA Performing Organization Address [facility] Co de Phone Number [address] [address], [facility] [phone] * (ABNORMAL) TRIGLYCERIDES BLOOD (02/21/2021 11:12 PM CDT) Triglycerides 236(H) <150 mg/dL 02/21/2021 11:42 PM CDT [facility] Comment: ATP III Classification of Triglycerides: ?<150 mg/dL: ??Normal ? 150 - 199 mg/dL: ??Borderline High ? 200 - 400 mg/dL: ??High ?>500 mg/dL: ??Very High Blood BLOOD SPECIMEN / Unknown Venipuncture / Unknown 02/21/2021 11:12 PM CDT 02/21/2021 11:16 PM CDT Fredy Felipe MD LAB - CHEMISTRY JOSE ENRIQUE VELA [facility] Organization Address City/State/ZIP Co de Phone Number [address] [address], [facility] [phone] * XR FOREARM RIGHT 2VW (02/21/2021 9:01 AM CDT) Anatomical Region Laterality Modality Upper Extremity Radiographic Sera ging 02/21/2021 9:07 AM CDT Impressions 02/21/2021 10:41 AM CDT IMPRESSION: No acute radial or ulnar fracture identified. Dictated by Rico Sawant D.O. (Solar System Designer) Dr. CHOCO Yao MD have personally reviewed [...] fracture identified. Dictated by Rico Sawant D.O. (Solar System Designer) Dr. CHOCO Yao MD have personally reviewed [...] are normal. Dictated by Rico Sawant DO (executive assistant to president). Dr. AFRICA Yao M.D. have personally reviewed and interpreted this examination/study. This report was electronically signed by AFRICA HENRIQUEZ M.D. ??on 02/21/2021 11:05 AM . Narrative 02/21/2021 11:05 AM CDT EXAMINATION: XR CHEST 1VW PORTABLE HISTORY: [id number]: Trauma COMPARISON: Comparison is made with chest dated 11/20/2020. Procedure Note Africa Herniquez MD - 02/21/2021 EXAMINATION: XR CHEST 1VW [...] are normal. Dictated by Rico Sawant DO (executive assistant to president). I, Dr. AFRICA HENRIQUEZ M.D. have personally reviewed and interpreted this examination/study. This report was electronically signed by AFRICA HENRIQUEZ M.D. on 02/21/2021 11:05 AM . Fredy Felipe MD DIAGNOSTIC IMAGING O RDERABLES * (ABNORMAL) CBC W AUTO DIFFERENTIAL (02/20/2021 11:26 PM CDT) WBC 14.6(H) 3.5 - 10.5 10? 3 /uL 02/20/2021 11:36 PM [facility] RBC 5.46 4.30 - 5.70 10? 6 /uL 02/20/2021 11:36 PM [facility] Hemoglobin 15.0 12.0 - 17.6 g/dL 02/20/2021 11:36 PM [facility] Hematocrit 46.7 35.2 - 51.7 % 02/20/2021 11:36 PM [facility] MCV 85.5 80.7 - 98.3 fL 02/20/2021 11:36 PM [facility] MCH 27.5 26.7 - 34.0 pg 02/20/2021 11:36 PM [facility] MCHC 32.1 30.8 - 35.9 g/dL 02/20/2021 11:36 PM [facility] Platelet Count 392 150 - 400 10? 3 /uL 02/20/2021 11:36 PM [facility] RDW-SD 42.8 36.0 - 50.0 fL 02/20/2021 11:36 PM [facility] RDW-CV 13.9 11.2 - 14.8 % 02/20/2021 11:36 PM [facility] MPV 9.0(L) 9.4 - 12.9 fL 02/20/2021 11:36 PM [facility] nRBC Absolute 0.00 0 10? 3 /uL 02/20/2021 11:36 PM [facility] nRBC Auto 0.0 0 /100 WBC 02/20/2021 11:36 PM [facility] Neutrophils % 82.1(H) 35.0 - 70.0 % 02/20/2021 11:36 PM T [facility] Lymphocytes % 5.4(L) 20.0 - 43.0 % 02/20/2021 11:36 PM [facility] Monocytes % 9.4 5.0 - 13.0 % 02/20/2021 11:36 PM [facility] Eosinophils % 2.0 0.0 - 6.0 % 02/20/2021 11:36 PM [facility] Basophil % 0.4 0.0 - 2.0 % 02/20/2021 11:36 PM [facility] Neutrophils Absolute 12.0(H) 1.6 - 7.0 10? 3 /uL 02/20/2021 11:36 PM [facility] Lymphocyte Absolute 0.8(L) 1.1 - 3.9 10? 3 /uL 02/20/2021 11:36 PM T [facility] Monocytes Absolute 1.37(H) 0.26 - 1.07 10? 3 /uL 02/20/2021 11:36 PM T [facility] Eosinophils Absolute 0.29 0.00 - 0.47 10? 3 /uL 02/20/2021 11:36 PM T [facility] Basophils Absolute 0.06 0.00 - 0.08 10? 3 /uL 02/20/2021 11:36 PM T [facility] Immature Granulocytes % 0.7 0.0 - 1.0 % 02/20/2021 11:36 PM T [facility] Immature Granulocytes Absolute 0.10 02/20/2021 11:36 PM [facility] Blood BLOOD SPECIMEN / Unknown Venipuncture / Unknown 02/20/2021 11:26 PM CDT 02/20/2021 11:31 PM CDT Fredy Feilpe MD LAB - HEMATOLOGY ORD ERABLES [facility] [address] [place] [address], [facility] [phone] * BASIC METABOLIC PANEL (CALCIUM TOTAL) (02/20/2021 11:26 PM CDT) BUN 12 7 - 26 mg/dL 02/20/2021 11:54 PM [facility] Creatinine 0.75 0.71 - 1.16 mg/dL 02/20/2021 11:54 PM [facility] Sodium 142 136 - 145 mmol/L 02/20/2021 11:54 PM [facility] Potassium 4.0 3.5 - 4.5 mmol/L 02/20/2021 11:54 PM [facility] Chloride 105 98 - 107 mmol/L 02/20/2021 11:54 PM [facility] CO2 26 22 - 29 mmol/L 02/20/2021 11:54 PM [facility] Glucose 106 70 - 115 mg/dL 02/20/2021 11:54 PM [facility] Calcium 8.8 8.4 - 10.2 mg/dL 02/20/2021 11:54 PM [facility] Anion Gap 15 8 - 18 02/20/2021 11:54 PM [facility] BUN/Creatinine Ratio 16 7 - 23 02/20/2021 11:54 PM [facility] Osmolality Calculated 294 270 - 300 mOsm/kg 02/20/2021 11:54 PM [facility] eGFR by CKD-EPI >90 >=90 mL/min/1.7 3 m2 02/20/2021 11:54 PM [facility] Blood BLOOD SPECIMEN / Unknown Venipuncture / Unknown 02/20/2021 11:26 PM CDT 02/20/2021 11:30 PM CDT Fredy Felipe MD LAB - CHEMISTRY JOSE ENRIQUE VELA [facility] Organization Address City/State/ZIP Co de Phone Number [facility] [address] [place] [phone], [facility] [phone] * (ABNORMAL) BLOOD GASES ART + COOX PANEL (02/20/2021 11:26 PM CDT) pH Arterial 7.41 7.35 - 7.45 pH 02/20/2021 11:32 PM [facility] pO2 Arterial 131(H) 80 - 100 mmHg 02/20/2021 11:32 PM [facility] pCO2 Arterial 40 35 - 45 mmHg 11:32 PM [facility] HCO3 Arterial 25 20 - 30 mmol/l 02/20/2021 11:32 PM [facility] BE Arterial 0.7 -2.0 - 2.0 mmol/L 02/20/2021 11:32 PM [facility] Oxyhemoglobin Arterial 96.8 % 02/20/2021 11:32 PM [facility] Dexoyhemoglobin (HHB) % 0.0 % 02/20/2021 11:32 PM [facility] Methemoglobin <0.8 0.0 - 2.0 % 02/20/2021 11:32 PM [facility] Carboxyhemoglobin 2.7(H) 0.0 - 2.0 % 2020 11:32 PM [facility] O2 Content Arterial 21.3 Interpret within clinical context mg/dL 02/20/2021 11:32 PM [facility] Hemoglobin by COOX 15.5 12.0 - 17.6 g/dL 02/20/2021 11:32 PM [facility] O2 Saturation Arterial 100 90 - 100 % 02/20/2021 11:32 PM [facility] FI O2 Arterial 100.0 % 02/20/2021 11:32 PM [facility] Blood, arterial ARTERIAL BLOOD SPECIMEN / Unknown Arterial Puncture / Unknown 02/20/2021 11:26 PM CDT 02/20/2021 11:30 PM [facility] - 02/20/2021 11:32 PM [facility] Carboxyhemoglobin Normal Concentration: Non-smokers: 0-2%; Smokers: 0-9%; Toxic: >20% Fredy Felipe MD LAB - BLOOD GASES OR DERABLES [facility] [address] [place] [address], [facility] [phone] * PT-INR [facility] (02/20/2021 11:26 PM CDT) PT 14.8 12.1 - 14.8 Seconds 02/20/2021 11:45 PM CDT [facility] INR 1.2 See Comment 02/20/2021 11:45 PM CDT [facility] Comment:The suggested therap eutic range for standard coumadin (warfarin) therapy is an INR of 2.0-3.0. For high-risk patients (Mechanical Mitral Valve Prosthesis, etc.), the suggested prophylactic therapeutic range is an INR of 2.5-3.5. Blood BLOOD SPECIMEN / Unknown Venipuncture / Unknown 02/20/2021 11:26 PM CDT 02/20/2021 11:30 PM CDT Fredy Felipe MD LAB - COAGULATION OR DERABLES Performing Organization Address City/[facility]/ZIP Co de Phone Number [address] [address], [facility] [phone] * PHOSPHORUS BLOOD (02/20/2021 11:26 PM CDT) Phosphorus 4.6 2.8 - 5.1 mg/dL 02/20/2021 11:54 PM CDT [facility] Blood BLOOD SPECIMEN / Unknown Venipuncture / Unknown 02/20/2021 11:26 PM CDT 02/20/2021 11:30 PM CDT Fredy Felipe MD LAB - CHEMISTRY ORDE RABLES [address] [address], [facility] [phone] * MAGNESIUM BLOOD (02/20/2021 11:26 PM CDT) Magnesium 2.0 1.6 - 2.6 mg/dL 02/20/2021 11:54 PM CDT [facility] Blood BLOOD SPECIMEN / Unknown Venipuncture / Unknown 02/20/2021 11:26 PM CDT 02/20/2021 11:30 PM CDT Fredy Felipe MD LAB - CHEMISTRY JOSE ENRIQUE VELA [facility] [address] [place] [id number], [facility] [phone] * (ABNORMAL) CALCIUM IONIZED WHOLE BLOOD (02/20/2021 11:26 PM CDT) Calcium Ionized 1.14 mmol/L 02/20/2021 11:32 PM CDT [facility] pH 7.41 7.35 - 7.45 pH 02/20/2021 11:32 PM CDT [facility] Ionized Calcium pH Adjusted 1.14(L) 1.19 - 1.34 mmol/L 02/20/2021 11:32 PM CDT [facility] Blood BLOOD SPECIMEN / Unknown Venipuncture / Unknown 02/20/2021 11:26 PM CDT 02/20/2021 11:30 PM CDT Fredy Felipe MD LAB - CHEMISTRY JOSE ENRIQUE VELA Performing Organization Address City/[facility]/ZIP Co de Phone Number [address] [address], [facility] [phone] * XR CHEST 1VW PORTABLE (02/20/2021 1:56 PM CDT) Anatomical Region Laterality Modality Chest Radiographic Sera ging 02/20/2021 3:53 PM CDT Impressions 02/20/2021 4:27 PM CDT FINDINGS/IMPRESSION: Lines and tubes: *Endotracheal tube terminates in mid thoracic trachea. *There is an NG/OG coursing below the diaphragm, terminus outside the msmbt-aj-jqob. *There is a left subclavian approach central [...] is stable. Dictated by Rico Sawant DO (executive assistant to president). Dr. AFRICA Yao M.D. have personally reviewed [...] coursing below the diaphragm, terminus outside the nposo-dj-evbf. *There is a left subclavian approach central [...] is stable. Dictated by Rico Sawant DO (executive assistant to president). Dr. AFIRCA Yao M.D. have personally reviewed and interpreted [...] below the diaphragm, the segments of the [id number]-[id number]. *There is a left subclavian approach central [...] is stable. Dictated by Phan Brothers MD (executive assistant to president). I, Dr. SUNITA BAILEY have personally reviewed [...] below the diaphragm, the segments of the ujlmo-xo-ecyo. *There is a left subclavian approach central [...] is stable. Dictated by Phan Brothers MD (executive assistant to president). I, Dr. SUNITA BAILEY have personally reviewed and interpreted this examination/study. This report was electronically signed by SUNITA BAILEY on 13:06 PM . Fredy Felipe MD DIAGNOSTIC IMAGING O RDERABLES * BLOOD GASES ART + COOX PANEL (02/20/2021 3:07 AM [facility]) pH Arterial 7.41 7.35 - 7.45 pH 02/20/2021 3:12 AM [facility] pO2 Arterial 88 80 - 100 mmHg 02/20/2021 3:12 AM [facility] pCO2 Arterial 41 35 - 45 mmHg 3:12 AM [facility] HCO3 Arterial 26 20 - 30 mmol/l 02/20/2021 3:12 AM [facility] BE Arterial 1.2 -2.0 - 2.0 mmol/L 02/20/2021 3:12 AM [facility] Oxyhemoglobin Arterial 96.0 % 02/20/2021 3:12 AM [facility] Dexoyhemoglobin (HHB) % 1.4 % 02/20/2021 3:12 AM [facility] Methemoglobin 0.9 0.0 - 2.0 % 02/20/2021 3:12 AM [facility] Carboxyhemoglobin 1.7 0.0 - 2.0 % 2020 3:12 AM [facility] O2 Content Arterial 18.7 Interpret within clinical context mg/dL 02/20/2021 3:12 AM [facility] Hemoglobin by COOX 13.8 12.0 - 17.6 g/dL 02/20/2021 3:12 AM [facility] O2 Saturation Arterial 99 90 - 100 % 02/20/2021 3:12 AM [facility] FI O2 Arterial 60.0 % 02/20/2021 3:12 AM [facility] Blood, arterial ARTERIAL BLOOD SPECIMEN / Unknown Arterial Puncture / Unknown 02/20/2021 3:07 AM CDT 02/20/2021 3:10 AM CDT [facility] - 02/20/2021 3:12 AM CDT Carboxyhemoglobin Normal Concentration: Non-smokers: 0-2%; Smokers: 0-9%; Toxic: >20% Delilah [employer] LAB - BLOOD GASES ORDERABLES [facility] [address] [place] [address], [facility] [phone] * (ABNORMAL) CBC W AUTO DIFFERENTIAL (02/19/2021 11:36 PM CDT) WBC 13.2(H) 3.5 - 10.5 10? 3 /uL 02/19/2021 11:45 PM [facility] RBC 4.92 4.30 - 5.70 10? 6 /uL 02/19/2021 11:45 PM [facility] Hemoglobin 13.8 12.0 - 17.6 g/dL 02/19/2021 11:45 PM [facility] Hematocrit 42.3 35.2 - 51.7 % 02/19/2021 11:45 PM [facility] MCV 86.0 80.7 - 98.3 fL 02/19/2021 11:45 PM [facility] MCH 28.0 26.7 - 34.0 pg 02/19/2021 11:45 PM [facility] MCHC 32.6 30.8 - 35.9 g/dL 02/19/2021 11:45 PM [facility] Platelet Count 371 150 - 400 10? 3 /uL 02/19/2021 11:45 PM [facility] RDW-SD 43.7 36.0 - 50.0 fL 02/19/2021 11:45 PM [facility] RDW-CV 13.8 11.2 - 14.8 % 02/19/2021 11:45 PM [facility] MPV 8.8(L) 9.4 - 12.9 fL 02/19/2021 11:45 PM [facility] nRBC Absolute 0.00 0 10? 3 /uL 02/19/2021 11:45 PM [facility] nRBC Auto 0.0 0 /100 WBC 02/19/2021 11:45 PM [facility] Neutrophils % 78.5(H) 35.0 - 70.0 % 02/19/2021 11:45 PM [facility] Lymphocytes % 8.3(L) 20.0 - 43.0 % 02/19/2021 11:45 PM [facility] Monocytes % 10.4 5.0 - 13.0 % 02/19/2021 11:45 PM [facility] Eosinophils % 1.6 0.0 - 6.0 % 02/19/2021 11:45 PM [facility] Basophil % 0.4 0.0 - 2.0 % 02/19/2021 11:45 PM [facility] Neutrophils Absolute 10.4(H) 1.6 - 7.0 10? 3 /uL 02/19/2021 11:45 PM [facility] Lymphocyte Absolute 1.1 1.1 - 3.9 10? 3 /uL 02/19/2021 11:45 PM [facility] Monocytes Absolute 1.37(H) 0.26 - 1.07 10? 3 /uL 02/19/2021 11:45 PM [facility] Eosinophils Absolute 0.21 0.00 - 0.47 10? 3 /uL 02/19/2021 11:45 PM [facility] Basophils Absolute 0.05 0.00 - 0.08 10? 3 /uL 02/19/2021 11:45 PM [facility] Immature Granulocytes % 0.8 0.0 - 1.0 % 02/19/2021 11:45 PM [facility] Immature Granulocytes Absolute 0.11 02/19/2021 11:45 PM [facility] Blood BLOOD SPECIMEN / Unknown Venipuncture / Unknown 02/19/2021 11:36 PM CDT 02/19/2021 11:41 PM CDT Fredy Felipe MD LAB - HEMATOLOGY [place] [address] [address], [facility] [phone] * BASIC METABOLIC PANEL (CALCIUM TOTAL) (02/19/2021 11:36 PM CDT) BUN 10 7 - 26 mg/dL 02/20/2021 12:08 AM [facility] Creatinine 0.72 0.71 - 1.16 mg/dL 02/20/2021 12:08 AM [facility] Sodium 140 136 - 145 mmol/L 02/20/2021 12:08 AM [facility] Potassium 4.3 3.5 - 4.5 mmol/L 02/20/2021 12:08 AM [facility] Chloride 105 98 - 107 mmol/L 02/20/2021 12:08 AM [facility] CO2 25 22 - 29 mmol/L 02/20/2021 12:08 AM [facility] Glucose 92 70 - 115 mg/dL 02/20/2021 12:08 AM [facility] Calcium 8.9 8.4 - 10.2 mg/dL 02/20/2021 12:08 AM [facility] Anion Gap 14 8 - 18 02/20/2021 12:08 AM [facility] BUN/Creatinine Ratio 14 7 - 23 02/20/2021 12:08 AM [facility] Osmolality Calculated 289 270 - 300 mOsm/kg 02/20/2021 12:08 AM [facility] eGFR by CKD-EPI >90 >=90 mL/min/1.7 3 m2 02/20/2021 12:08 AM [facility] Blood BLOOD SPECIMEN / Unknown Venipuncture / Unknown 02/19/2021 11:36 PM CDT 02/19/2021 11:41 PM CDT Fredy Felipe MD LAB - CHEMISTRY JOSE ENRIQUE VELA [address] [place] [address], [facility] [phone] * BLOOD GASES ART + COOX PANEL (02/19/2021 11:36 PM [facility]) pH Arterial 7.42 7.35 - 7.45 pH 02/19/2021 11:42 PM [facility] pO2 Arterial 93 80 - 100 mmHg 02/19/2021 11:42 PM [facility] pCO2 Arterial 41 35 - 45 mmHg 11:42 PM [facility] HCO3 Arterial 27 20 - 30 mmol/l 02/19/2021 11:42 PM [facility] BE Arterial 1.9 -2.0 - 2.0 mmol/L 02/19/2021 11:42 PM [facility] Oxyhemoglobin Arterial 96.2 % 02/19/2021 11:42 PM [facility] Dexoyhemoglobin (HHB) % 1.5 % 02/19/2021 11:42 PM [facility] Methemoglobin 1.0 0.0 - 2.0 % 02/19/2021 11:42 PM [facility] Carboxyhemoglobin 1.4 0.0 - 2.0 % 2020 11:42 PM [facility] O2 Content Arterial 19.5 Interpret within clinical context mg/dL 02/19/2021 11:42 PM [facility] Hemoglobin by COOX 14.4 12.0 - 17.6 g/dL 02/19/2021 11:42 PM [facility] O2 Saturation Arterial 99 90 - 100 % 02/19/2021 11:42 PM [facility] FI O2 Arterial 50.0 % 02/19/2021 11:42 PM [facility] Blood, arterial ARTERIAL BLOOD SPECIMEN / Unknown Arterial Puncture / Unknown 02/19/2021 11:36 PM CDT 02/19/2021 11:40 PM [facility] - 02/19/2021 11:42 PM [facility] Carboxyhemoglobin Normal Concentration: Non-smokers: 0-2%; Smokers: 0-9%; Toxic: >20% Fredy Felipe MD LAB - BLOOD GASES OR DERABLES Performing Organization Address City/[facility]/ZIP Co de Phone Number [address] [address], [facility] [phone] * PT-INR [facility] (02/19/2021 11:36 PM CDT) Pathologist [facility] PT 14.1 12.1 - 14.8 Seconds 02/19/2021 11:53 PM CDT [facility] INR 1.1 See Comment 02/19/2021 11:53 PM CDT [facility] Comment:The suggested therap eutic range for standard coumadin (warfarin) therapy is an INR of 2.0-3.0. For high-risk patients (Mechanical Mitral Valve Prosthesis, etc.), the suggested prophylactic therapeutic range is an INR of 2.5-3.5. Blood BLOOD SPECIMEN / Unknown Venipuncture / Unknown 02/19/2021 11:36 PM CDT 02/19/2021 11:44 PM CDT Fredy Felipe MD LAB - COAGULATION OR DERABLES Performing Organization Address [facility]/ZIP Co de Phone Number [address] [address], [place] [phone] * PHOSPHORUS BLOOD (02/19/2021 11:36 PM CDT) [facility] Phosphorus 3.8 2.8 - 5.1 mg/dL 02/20/2021 12:08 AM CDT [facility] Blood BLOOD SPECIMEN / Unknown Venipuncture / Unknown 02/19/2021 11:36 PM CDT 02/19/2021 11:41 PM CDT Fredy Felipe MD LAB - CHEMISTRY JOSE ENRIQUE VELA [address] [address], [place] [phone] * MAGNESIUM BLOOD (02/19/2021 11:36 PM CDT) Pathologist [facility] Magnesium 1.9 1.6 - 2.6 mg/dL 02/20/2021 12:08 AM CDT [facility] Blood BLOOD SPECIMEN / Unknown Venipuncture / Unknown 02/19/2021 11:36 PM CDT 02/19/2021 11:41 PM CDT Fredy Felipe MD LAB - CHEMISTRY JOSE ENRIQUE VELA Performing Organization Address [facility]/ZIP Co de Phone Number [address] [address], [facility] [phone] * CALCIUM IONIZED WHOLE BLOOD (02/19/2021 11:36 PM CDT) Pathologist [facility] Calcium Ionized 1.20 mmol/L 02/19/2021 11:43 PM CDT [facility] pH 7.43 7.35 - 7.45 pH 02/19/2021 11:43 PM CDT [facility] Ionized Calcium pH Adjusted 1.21 1.19 - 1.34 mmol/L 02/19/2021 11:43 PM CDT [facility] Blood BLOOD SPECIMEN / Unknown Venipuncture / Unknown 02/19/2021 11:36 PM CDT 02/19/2021 11:40 PM CDT Fredy Felipe MD LAB - CHEMISTRY JOSE ENRIQUE VELA Performing Organization Address [facility] Co de Phone Number [address] [address], [facility] [phone] * XR CHEST 1VW PORTABLE (02/19/2021 5:10 [...] is normal. Dictated by Rico Sawant DO (executive assistant to president). Dr. NAOMY Yao MD, KATHLEEN have personally reviewed and interpreted this examination/study. This report was electronically signed by NAOMY LAZO MD, FRCR ??on 02/20/2021 2:18 PM . Narrative 02/20/2021 [...] is normal. Dictated by Rico Sawant DO (executive assistant to president). Dr. NAOMY Yao MD, FRCR have personally reviewedand interpreted this examination/study. This report was electronically signed by NAOMY LAZO MD, [facility] on 02/20/2021 2:18 PM . Fredy Felipe [...] Dr. Carrion Dictated by Bety Rose MD (executive assistant to president). This report was approved ??by Bety [...] Dr. Carrion Dictated by Bety Rose MD (executive assistant to president). This report was approved by Bety Rose on 02/20/2021 11:19 AM . I, Dr. JASWINDER CARRION have personally reviewed and interpreted this examination/study. This report was electronically signed by JASWINDER CARRION on02/20/2021 11:38 AM . Fredy Felipe MD MR ORDERABLES * TYPE + SCREEN PANEL (02/19/2021 7:27 AM CDT) Antibody Screen NEG 8:50 AM CDT [facility] BLOOD BANK LAB ABO Rh O POS 02/19/2021 8:50 AM CDT [facility] BLOOD B[facility] LAB Blood Bank BLOOD SPECIMEN / Unknown Venipuncture / Unknown 02/19/2021 7:27 AM CDT 02/19/2021 7:34 AM CDT Fredy Felipe MD LAB - BLOOD BANK ORD ERABLES [facility] BLOOD B[facility] LAB [address] [place] [address], [facility] [phone] * XR CHEST 1VW PORTABLE (02/19/2021 5:26 [...] is normal. Dictated by Rico Sawant DO (executive assistant to president). I, Dr. OSWALDO CLEMONS have personally reviewed [...] is normal. Dictated by Rico Sawant DO (executive assistant to president). I, Dr. OSWALDO CLEMONS have personally reviewed and interpreted this examination/study. This report was electronically signed by OSWALDO CLEMONS on 02/19/2021 3:43PM . Fredy Felipe MD DIAGNOSTIC IMAGING O RDERABLES * (ABNORMAL) CBC W AUTO DIFFERENTIAL (02/18/2021 11:03 PM CDT) WBC 11.9(H) 3.5 - 10.5 10? 3 /uL 02/18/2021 11:19 PM CDT [facility] RBC 4.74 4.30 - 5.70 10? 6 /uL 02/18/2021 11:19 PM CDT [facility] Hemoglobin 13.1 12.0 - 17.6 g/dL 02/18/2021 11:19 PM [facility] Hematocrit 40.4 35.2 - 51.7 % 02/18/2021 11:19 PM [facility] MCV 85.2 80.7 - 98.3 fL 02/18/2021 11:19 [facility] MCH 27.6 26.7 - 34.0 pg 02/18/2021 11:19 PM [facility] MCHC 32.4 30.8 - 35.9 g/dL 02/18/2021 11:19 PM [facility] Platelet Count 325 150 - 400 10? 3 /uL 02/18/2021 11:19 PM [facility] RDW-SD 43.3 36.0 - 50.0 fL 02/18/2021 11:19 PM [facility] RDW-CV 14.0 11.2 - 14.8 % 02/18/2021 11:19 [facility] MPV 9.2(L) 9.4 - 12.9 fL 02/18/2021 11:19 PM [facility] nRBC Absolute 0.00 0 10? 3 /uL 02/18/2021 11:19 PM [facility] nRBC Auto 0.0 0 /100 WBC 02/18/2021 11:19 [facility] Neutrophils % 79.2(H) 35.0 - 70.0 % 02/18/2021 11:19 [facility] Lymphocytes % 10.3(L) 20.0 - 43.0 % 02/18/2021 11:19 PM [facility] Monocytes % 9.5 5.0 - 13.0 % 02/18/2021 11:19 [facility] Eosinophils % 0.3 0.0 - 6.0 % 02/18/2021 11:19 PM [facility] Basophil % 0.2 0.0 - 2.0 % 02/18/2021 11:19 [facility] Neutrophils Absolute 9.4(H) 1.6 - 7.0 10? 3 /uL 02/18/2021 11:19 PM [facility] Lymphocyte Absolute 1.2 1.1 - 3.9 10? 3 /uL 02/18/2021 11:19 PM CDT [facility] Monocytes Absolute 1.13(H) 0.26 - 1.07 10? 3 /uL 02/18/2021 11:19 PM [facility] Eosinophils Absolute 0.04 0.00 - 0.47 10? 3 /uL 02/18/2021 11:19 PM T [facility] Basophils Absolute 0.02 0.00 - 0.08 10? 3 /uL 02/18/2021 11:19 PM [facility] Immature Granulocytes % 0.5 0.0 - 1.0 % 02/18/2021 11:19 PM [facility] Immature Granulocytes Absolute 0.06 02/18/2021 11:19 PM [facility] Blood BLOOD SPECIMEN / Unknown Venipuncture / Unknown 02/18/2021 11:03 PM CDT 02/18/2021 11:08 PM CDT Fredy Felipe MD LAB - HEMATOLOGY ORD ERABLES [facility] [address] [place] [address], [facility] [phone] * (ABNORMAL) BASIC METABOLIC PANEL (CALCIUM TOTAL) (02/18/2021 11:03 PM CDT) BUN 9 7 - 26 mg/dL 02/18/2021 11:32 PM [facility] Creatinine 0.75 0.71 - 1.16 mg/dL 02/18/2021 11:32 PM [facility] Sodium 142 136 - 145 mmol/L 02/18/2021 11:32 PM [facility] Potassium 3.9 3.5 - 4.5 mmol/L 02/18/2021 11:32 PM [facility] Chloride 108(H) 98 - 107 mmol/L 02/18/2021 11:32 PM [facility] CO2 25 22 - 29 mmol/L 02/18/2021 11:32 PM [facility] Glucose 92 70 - 115 mg/dL 02/18/2021 11:32 PM [facility] Calcium 8.4 8.4 - 10.2 mg/dL 02/18/2021 11:32 PM [facility] Anion Gap 13 8 - 18 02/18/2021 11:32 PM [facility] BUN/Creatinine Ratio 12 7 - 23 02/18/2021 11:32 PM [facility] Osmolality Calculated 292 270 - 300 mOsm/kg 02/18/2021 11:32 PM [facility] eGFR by CKD-EPI >90 >=90 mL/min/1.7 3 m2 02/18/2021 11:32 PM [facility] Blood BLOOD SPECIMEN / Unknown Venipuncture / Unknown 02/18/2021 11:03 PM CDT 02/18/2021 11:08 PM [facility] Fredy Felipe MD LAB - CHEMISTRY [facility] Organization Address City/State/ZIP Co de Phone Number [facility] [address] [place] [id number], [facility] [phone] * (ABNORMAL) BLOOD GASES ART + COOX PANEL (02/18/2021 11:03 PM [facility]) pH Arterial 7.46(H) 7.35 - 7.45 pH 02/18/2021 11:11 PM [facility] pO2 Arterial 145(H) 80 - 100 mmHg 02/18/2021 11:11 PM [facility] pCO2 Arterial 37 35 - 45 mmHg 11:11 PM [facility] HCO3 Arterial 26 20 - 30 mmol/l 02/18/2021 11:11 PM [facility] BE Arterial 2.5(H) -2.0 - 2.0 mmol/L 02/18/2021 11:11 PM [facility] Oxyhemoglobin Arterial 97.5 % 02/18/2021 11:11 PM [facility] Dexoyhemoglobin (HHB) % 0.1 % 02/18/2021 11:11 PM [facility] Methemoglobin <0.8 0.0 - 2.0 % 02/18/2021 11:11 PM [facility] Carboxyhemoglobin 1.7 0.0 - 2.0 % 2020 11:11 PM [facility] O2 Content Arterial 18.8 Interpret within clinical context mg/dL 02/18/2021 11:11 PM [facility] Hemoglobin by COOX 13.5 12.0 - 17.6 g/dL 02/18/2021 11:11 PM [facility] O2 Saturation Arterial 100 90 - 100 % 02/18/2021 11:11 PM [facility] FI O2 Arterial 40.0 % 02/18/2021 11:11 PM [facility] Blood, arterial ARTERIAL BLOOD SPECIMEN / Unknown Arterial Puncture / Unknown 02/18/2021 11:03 PM CDT 02/18/2021 11:08 PM CDT Narrative [facility] - 02/18/2021 11:11 PM CDT Carboxyhemoglobin Normal Concentration: Non-smokers: 0-2%; Smokers: 0-9%; Toxic: >20% Fredy Felipe MD LAB - BLOOD GASES OR DERABLES [facility] [address] [place] [address], [facility] [phone] * PT-INR [facility] (02/18/2021 11:03 PM CDT) PT 14.1 12.1 - 14.8 Seconds 02/18/2021 11:23 PM [facility] INR 1.1 See Comment 02/18/2021 11:23 PM [facility] Comment:The suggested therap eutic range for standard coumadin (warfarin) therapy is an INR of 2.0-3.0. For high-risk patients (Mechanical Mitral Valve Prosthesis, etc.), the suggested prophylactic therapeutic range is an INR of 2.5-3.5. Blood BLOOD SPECIMEN / Unknown Venipuncture / Unknown 02/18/2021 11:03 PM CDT 02/18/2021 11:08 PM CDT Fredy Felipe MD LAB - COAGULATION OR DERABLES Performing Organization Address [facility]/ZIP Co de Phone Number [address] [address], [place] [phone] * (ABNORMAL) PHOSPHORUS BLOOD (02/18/2021 11:03 PM CDT) Phosphorus 2.3(L) 2.8 - 5.1 mg/dL 02/18/2021 11:33 PM CDT [facility] Blood BLOOD SPECIMEN / Unknown Venipuncture / Unknown 02/18/2021 11:03 PM CDT 02/18/2021 11:08 PM CDT Fredy Felipe MD LAB - CHEMISTRY JOSE ENRIQUE VELA Performing Organization Address [facility]/ZIP Co de Phone Number [address] [address], [facility] [phone] * MAGNESIUM BLOOD (02/18/2021 11:03 PM CDT) Magnesium 1.7 1.6 - 2.6 mg/dL 02/18/2021 11:32 PM CDT [facility] Blood BLOOD SPECIMEN / Unknown Venipuncture / Unknown 02/18/2021 11:03 PM CDT 02/18/2021 11:08 PM CDT Fredy Felipe MD LAB - CHEMISTRY JOSE ENRIQUE VELA Performing Organization Address City/[facility]/ZIP Co de Phone Number [address] [address], [place] [phone] * (ABNORMAL) CALCIUM IONIZED WHOLE BLOOD (02/18/2021 11:03 PM CDT) Calcium Ionized 1.15 mmol/L 02/18/2021 11:10 PM CDT [facility] pH 7.45 7.35 - 7.45 pH 02/18/2021 11:10 PM CDT [facility] Ionized Calcium pH Adjusted 1.17(L) 1.19 - 1.34 mmol/L 02/18/2021 11:10 PM CDT [facility] Blood BLOOD SPECIMEN / Unknown Venipuncture / Unknown 02/18/2021 11:03 PM CDT 02/18/2021 11:08 PM CDT Fredy Felipe MD LAB - CHEMISTRY JOSE ENRIQUE VELA [facility] [address] [place] [address], [facility] [phone] * XR CHEST 1VW PORTABLE (02/18/2021 5:25 AM CDT) Anatomical Region Laterality Modality Chest Radiographic Sera ging 02/18/2021 2:01 PM CDT Impressions 02/18/2021 4:01 PM CDT IMPRESSION: 1.Support devices as above. 2.Bilateral pulmonary opacities redemonstrated. Report dictated by Simone Alexander MD, PhD (executive assistant to president). I, Dr. CHOCO JIN MD have personally [...] stable from prior study. Procedure Note Choco Jni MD - 02/18/2021 EXAMINATION: XR CHEST 1VW [...] Report dictated by Simone Alexander MD, PhD (executive assistant to president). I, Dr. CHOCO JIN MD have personally reviewed and interpreted this examination/study. This report was electronically signed by CHOCO JIN MD on02/18/2021 4:01 PM . Fredy Felipe MD DIAGNOSTIC IMAGING O RDERABLES * (ABNORMAL) CBC W AUTO DIFFERENTIAL (02/18/2021 12:04 AM CDT) WBC 16.3(H) 3.5 - 10.5 10? 3 /uL 02/18/2021 12:16 AM [facility] RBC 4.69 4.30 - 5.70 10? 6 /uL 02/18/2021 12:16 AM [facility] Hemoglobin 13.1 12.0 - 17.6 g/dL 02/18/2021 12:16 AM [facility] Hematocrit 40.9 35.2 - 51.7 % 02/18/2021 12:16 AM [facility] MCV 87.2 80.7 - 98.3 fL 02/18/2021 12:16 AM [facility] MCH 27.9 26.7 - 34.0 pg 02/18/2021 12:16 AM [facility] MCHC 32.0 30.8 - 35.9 g/dL 02/18/2021 12:16 AM [facility] Platelet Count 292 150 - 400 10? 3 /uL 02/18/2021 12:16 AM [facility] RDW-SD 45.6 36.0 - 50.0 fL 02/18/2021 12:16 AM [facility] RDW-CV 14.2 11.2 - 14.8 % 02/18/2021 12:16 AM [facility] MPV 9.4 9.4 - 12.9 fL 02/18/2021 12:16 AM [facility] nRBC Absolute 0.00 0 10? 3 /uL 02/18/2021 12:16 AM [facility] nRBC Auto 0.0 0 /100 WBC 02/18/2021 12:16 AM [facility] Neutrophils % 85.7(H) 35.0 - 70.0 % 02/18/2021 12:16 AM [facility] Lymphocytes % 6.2(L) 20.0 - 43.0 % 02/18/2021 12:16 AM [facility] Monocytes % 7.4 5.0 - 13.0 % 02/18/2021 12:16 AM [facility] Eosinophils % 0.0 0.0 - 6.0 % 02/18/2021 12:16 AM [facility] Basophil % 0.2 0.0 - 2.0 % 02/18/2021 12:16 AM [facility] Neutrophils Absolute 13.9(H) 1.6 - 7.0 10? 3 /uL 02/18/2021 12:16 AM [facility] Lymphocyte Absolute 1.0(L) 1.1 - 3.9 10? 3 /uL 02/18/2021 12:16 AM [facility] Monocytes Absolute 1.21(H) 0.26 - 1.07 10? 3 /uL 02/18/2021 12:16 AM [facility] Eosinophils Absolute 0.00 0.00 - 0.47 10? 3 /uL 02/18/2021 12:16 AM [facility] Basophils Absolute 0.03 0.00 - 0.08 10? 3 /uL 02/18/2021 12:16 AM [facility] Immature Granulocytes % 0.5 0.0 - 1.0 % 02/18/2021 12:16 AM [facility] Immature Granulocytes Absolute 0.08 02/18/2021 12:16 AM [facility] Blood BLOOD SPECIMEN / Unknown Venipuncture / Unknown 02/18/2021 12:04 AM CDT 02/18/2021 12:08 AM [facility] Fredy Felipe MD LAB - HEMATOLOGY ORD ERABLES [facility] [address] [place] [phone] [phone] * BASIC METABOLIC PANEL (CALCIUM TOTAL) (02/18/2021 12:04 AM [facility]) BUN 11 7 - 26 mg/dL 02/18/2021 12:32 AM [facility] Creatinine 0.83 0.71 - 1.16 mg/dL 02/18/2021 12:32 AM [facility] Sodium 140 136 - 145 mmol/L 02/18/2021 12:32 AM [facility] Potassium 4.2 3.5 - 4.5 mmol/L 02/18/2021 12:32 AM [facility] Chloride 106 98 - 107 mmol/L 02/18/2021 12:32 AM [facility] CO2 24 22 - 29 mmol/L 02/18/2021 12:32 AM [facility] Glucose 102 70 - 115 mg/dL 02/18/2021 12:32 AM [facility] Calcium 8.6 8.4 - 10.2 mg/dL 02/18/2021 12:32 AM [facility] Anion Gap 14 8 - 18 02/18/2021 12:32 AM [facility] BUN/Creatinine Ratio 13 7 - 23 02/18/2021 12:32 AM [facility] Osmolality Calculated 290 270 - 300 mOsm/kg 02/18/2021 12:32 AM [facility] eGFR by CKD-EPI >90 >=90 mL/min/1.7 3 m2 02/18/2021 12:32 AM [facility] Blood BLOOD SPECIMEN / Unknown Venipuncture / Unknown 02/18/2021 12:04 AM CDT 02/18/2021 12:08 AM [facility] Fredy Felipe MD LAB - CHEMISTRY JOSE ENRIQUE VELA [facility] Organization Address City/State/ZIP Co de Phone Number [facility] [address] [place] [address], [facility] [phone] * (ABNORMAL) BLOOD GASES ART + COOX PANEL (02/18/2021 12:04 AM [facility]) pH Arterial 7.40 7.35 - 7.45 pH 02/18/2021 12:11 AM [facility] pO2 Arterial 126(H) 80 - 100 mmHg 02/18/2021 12:11 AM [facility] pCO2 Arterial 42 35 - 45 mmHg 12:11 AM [facility] HCO3 Arterial 26 20 - 30 mmol/l 02/18/2021 12:11 AM [facility] BE Arterial 1.0 -2.0 - 2.0 mmol/L 02/18/2021 12:11 AM [facility] Oxyhemoglobin Arterial 97.0 % 02/18/2021 12:11 AM [facility] Dexoyhemoglobin (HHB) % 0.7 % 02/18/2021 12:11 AM [facility] Methemoglobin 1.0 0.0 - 2.0 % 02/18/2021 12:11 AM [facility] Carboxyhemoglobin 1.3 0.0 - 2.0 % 2020 12:11 AM [facility] O2 Content Arterial 18.7 Interpret within clinical context mg/dL 02/18/2021 12:11 AM [facility] Hemoglobin by COOX 13.6 12.0 - 17.6 g/dL 02/18/2021 12:11 AM [facility] O2 Saturation Arterial 99 90 - 100 % 02/18/2021 12:11 AM [facility] FI O2 Arterial 60.0 % 02/18/2021 12:11 AM [facility] Blood, arterial ARTERIAL BLOOD SPECIMEN / Unknown Arterial Puncture / Unknown 02/18/2021 12:04 AM CDT 02/18/2021 12:06 AM CDT Narrative [facility] - 02/18/2021 12:11 AM CDT Carboxyhemoglobin Normal Concentration: Non-smokers: 0-2%; Smokers: 0-9%; Toxic: >20% Fredy Felipe MD LAB - BLOOD GASES OR DERABLES Performing Organization Address [facility] de Phone Number [address] [address], [facility] [phone] * PT-INR [facility] (02/18/2021 12:04 AM CDT) PT 14.3 12.1 - 14.8 Seconds 02/18/2021 12:25 AM [facility] INR 1.1 See Comment 02/18/2021 12:25 AM [facility] Comment:The suggested therap eutic range for standard coumadin (warfarin) therapy is an INR of 2.0-3.0. For high-risk patients (Mechanical Mitral Valve Prosthesis, etc.), the suggested prophylactic therapeutic range is an INR of 2.5-3.5. Blood BLOOD SPECIMEN / Unknown Venipuncture / Unknown 02/18/2021 12:04 AM CDT 02/18/2021 12:07 AM CDT rFedy Felipe MD LAB - COAGULATION OR DERABLES Performing Organization Address [facility] Co de Phone Number [address] [address], [facility] [phone] * PHOSPHORUS BLOOD (02/18/2021 12:04 AM CDT) Phosphorus 3.4 2.8 - 5.1 mg/dL 02/18/2021 12:32 AM CDT [facility] Blood BLOOD SPECIMEN / Unknown Venipuncture / Unknown 02/18/2021 12:04 AM CDT 02/18/2021 12:08 AM CDT Fredy Felipe MD LAB - CHEMISTRY JOSE ENRIQUE VELA Performing Organization Address City/[facility]/ZIP Co de Phone Number [address] [address], [facility] [phone] * MAGNESIUM BLOOD (02/18/2021 12:04 AM CDT) Magnesium 2.0 1.6 - 2.6 mg/dL 02/18/2021 12:32 AM CDT [facility] Blood BLOOD SPECIMEN / Unknown Venipuncture / Unknown 02/18/2021 12:04 AM CDT 02/18/2021 12:08 AM CDT Fredy Felipe MD LAB - CHEMISTRY JOSE ENRIQUE VELA Performing Organization Address [facility] Co de Phone Number [address] [address], [facility] [phone] * (ABNORMAL) CALCIUM IONIZED WHOLE BLOOD (02/18/2021 12:04 AM CDT) Calcium Ionized 1.14 mmol/L 02/18/2021 12:12 AM CDT [facility] pH 7.41 7.35 - 7.45 pH 02/18/2021 12:12 AM CDT [facility] Ionized Calcium pH Adjusted 1.14(L) 1.19 - 1.34 mmol/L 02/18/2021 12:12 AM CDT [facility] Blood BLOOD SPECIMEN / Unknown Venipuncture / Unknown 02/18/2021 12:04 AM CDT 02/18/2021 12:06 AM CDT Fredy Felipe MD LAB - CHEMISTRY JOSE ENRIQUE VELA [facility] [address] [place] [address], [facility] [phone] * XR CHEST 1VW PORTABLE (02/17/2021 10:00 PM CDT) Anatomical Region Laterality Modality Chest Radiographic Sera ging 02/18/2021 9:45 AM CDT Impressions 02/18/2021 9:58 AM CDT IMPRESSION: 1.Support devices as above. 2.No pneumothorax. 3.Middle and lower lung zone atelectasis. Report dictated by Simone Alexander MD, PhD (executive assistant to president). I, Dr. NENA CLEMENTE have personally reviewed [...] and inferior chest wall. Procedure Note Nena Clemente DO - 02/18/2021 EXAMINATION: XR CHEST 1VW [...] Report dictated by Simone Alexander MD, PhD (executive assistant to president). I, Dr. NENA CLEMENTE have personally reviewed [...] the diaphragm with the terminus outside the [id number]. *Bilateral apically oriented thoracostomy tubes are reidentified. [...] on 02/17/2021. Dictated by Rico Sawant DO (executive assistant to president). I, Dr. OSWALDO CLEMONS have personally reviewed [...] below the diaphragm with the terminusoutside the [id number]. *Bilateral apically oriented thoracostomy tubes are reidentified. [...] on 02/17/2021. Dictated by Rico Sawant DO (executive assistant to president). I, Dr. OSWALDO CLEMONS have personally reviewed and interpreted this examination/study. This report was electronically signed by OSWALDO CLEMONS on 02/17/2021 2:39PM . Fredy Felipe MD DIAGNOSTIC IMAGING O RDERABLES * (ABNORMAL) CBC W AUTO DIFFERENTIAL (02/17/2021 12:13 AM T) WBC 21.4(H) 3.5 - 10.5 10? 3 /uL 02/17/2021 12:26 AM [facility] RBC 4.87 4.30 - 5.70 10? 6 /uL 02/17/2021 12:26 AM [facility] Hemoglobin 13.5 12.0 - 17.6 g/dL 02/17/2021 12:26 AM [facility] Hematocrit 41.8 35.2 - 51.7 % 02/17/2021 12:26 AM [facility] MCV 85.8 80.7 - 98.3 fL 02/17/2021 12:26 AM [facility] MCH 27.7 26.7 - 34.0 pg 02/17/2021 12:26 AM [facility] MCHC 32.3 30.8 - 35.9 g/dL 02/17/2021 12:26 AM [facility] Platelet Count 300 150 - 400 10? 3 /uL 02/17/2021 12:26 AM [facility] RDW-SD 45.7 36.0 - 50.0 fL 02/17/2021 12:26 AM [facility] RDW-CV 14.5 11.2 - 14.8 % 02/17/2021 12:26 AM [facility] MPV 9.0(L) 9.4 - 12.9 fL 02/17/2021 12:26 AM [facility] nRBC Absolute 0.00 0 10? 3 /uL 02/17/2021 12:26 AM [facility] nRBC Auto 0.0 0 /100 WBC 02/17/2021 12:26 AM [facility] Neutrophils % 88.2(H) 35.0 - 70.0 % 02/17/2021 12:26 AM [facility] Lymphocytes % 5.1(L) 20.0 - 43.0 % 02/17/2021 12:26 AM [facility] Monocytes % 6.0 5.0 - 13.0 % 02/17/2021 12:26 AM [facility] Eosinophils % 0.0 0.0 - 6.0 % 02/17/2021 12:26 AM [facility] Basophil % 0.1 0.0 - 2.0 % 02/17/2021 12:26 AM [facility] Neutrophils Absolute 18.9(H) 1.6 - 7.0 10? 3 /uL 02/17/2021 12:26 AM [facility] Lymphocyte Absolute 1.1 1.1 - 3.9 10? 3 /uL 02/17/2021 12:26 AM [facility] Monocytes Absolute 1.28(H) 0.26 - 1.07 10? 3 /uL 02/17/2021 12:26 AM [facility] Eosinophils Absolute 0.00 0.00 - 0.47 10? 3 /uL 02/17/2021 12:26 AM [facility] Basophils Absolute 0.02 0.00 - 0.08 10? 3 /uL 02/17/2021 12:26 AM [facility] Immature Granulocytes % 0.6 0.0 - 1.0 % 02/17/2021 12:26 AM [facility] Immature Granulocytes Absolute 0.12 02/17/2021 12:26 AM [facility] Blood BLOOD SPECIMEN / Unknown Venipuncture / Unknown 02/17/2021 12:13 AM CDT 02/17/2021 12:19 AM [facility] Fredy Felipe MD LAB - HEMATOLOGY ORD ERABLES [facility] [address] [place] [address], [facility] [phone] * (ABNORMAL) PT-INR [facility] (02/17/2021 12:13 AM CDT) PT 14.9(H) 12.1 - 14.8 Seconds 02/17/2021 12:33 AM [facility] INR 1.2 See Comment 02/17/2021 12:33 AM [facility] Comment:The suggested therap eutic range for standard coumadin (warfarin) therapy is an INR of 2.0-3.0. For high-risk patients (Mechanical Mitral Valve Prosthesis, etc.), the suggested prophylactic therapeutic range is an INR of 2.5-3.5. Blood BLOOD SPECIMEN / Unknown Venipuncture / Unknown 02/17/2021 12:13 AM CDT 02/17/2021 12:25 AM CDT Fredy Felipe MD LAB - COAGULATION OR DERABLES Performing Organization Address [facility] Co de Phone Number [facility] [address] [place] [phone], [facility] [phone] * (ABNORMAL) BASIC METABOLIC PANEL (CALCIUM TOTAL) (02/17/2021 12:12 AM CDT) BUN 9 7 - 26 mg/dL 02/17/2021 12:43 AM [facility] Creatinine 0.82 0.71 - 1.16 mg/dL 02/17/2021 12:43 AM [facility] Sodium 140 136 - 145 mmol/L 02/17/2021 12:43 AM [facility] Potassium 4.1 3.5 - 4.5 mmol/L 02/17/2021 12:43 AM [facility] Chloride 105 98 - 107 mmol/L 02/17/2021 12:43 AM [facility] CO2 27 22 - 29 mmol/L 02/17/2021 12:43 AM [facility] Glucose 118(H) 70 - 115 mg/dL 02/17/2021 12:43 AM [facility] Calcium 9.1 8.4 - 10.2 mg/dL 02/17/2021 12:43 AM [facility] Anion Gap 12 8 - 18 02/17/2021 12:43 AM CDT [facility] BUN/Creatinine Ratio 11 7 - 23 02/17/2021 12:43 AM CDT [facility] Osmolality Calculated 290 270 - 300 mOsm/kg 02/17/2021 12:43 AM CDT [facility] eGFR by CKD-EPI >90 >=90 mL/min/1.7 3 m2 02/17/2021 12:43 AM CDT [facility] Blood BLOOD SPECIMEN / Unknown Venipuncture / Unknown 02/17/2021 12:12 AM CDT 02/17/2021 12:19 AM CDT Fredy Felipe MD LAB - CHEMISTRY JOSE ENRIQUE VELA [address] [address], [place] [phone] * PHOSPHORUS BLOOD (02/17/2021 12:12 AM CDT) Phosphorus 3.5 2.8 - 5.1 mg/dL 02/17/2021 12:43 AM CDT [facility] Blood BLOOD SPECIMEN / Unknown Venipuncture / Unknown 02/17/2021 12:12 AM CDT 02/17/2021 12:19 AM CDT Fredy Felipe MD LAB - CHEMISTRY JOSE ENRIQUE VELA [address] [address], [place] [phone] * MAGNESIUM BLOOD (02/17/2021 12:12 AM CDT) Magnesium 1.9 1.6 - 2.6 mg/dL 02/17/2021 12:43 AM CDT [facility] Blood BLOOD SPECIMEN / Unknown Venipuncture / Unknown 02/17/2021 12:12 AM CDT 02/17/2021 12:19 AM CDT Fredy Felipe MD LAB - CHEMISTRY JOSE ENRIQUE VELA [facility] [address] [place] [phone], [facility] [phone] * CALCIUM IONIZED WHOLE BLOOD (02/17/2021 12:12 AM CDT) Calcium Ionized 1.18 mmol/L 02/17/2021 12:21 AM CDT [facility] pH 7.43 7.35 - 7.45 pH 02/17/2021 12:21 AM [facility] Ionized Calcium pH Adjusted 1.19 1.19 - 1.34 mmol/L 02/17/2021 12:21 AM T [facility] Blood BLOOD SPECIMEN / Unknown Venipuncture / Unknown 02/17/2021 12:12 AM CDT 02/17/2021 12:18 AM CDT Fredy Felipe MD LAB - CHEMISTRY JOSE ENRIQUE VELA Performing Organization Address [facility] Co de Phone Number [address] [address], [facility] [phone] * (ABNORMAL) BLOOD GASES ART + COOX PANEL (02/17/2021 12:12 AM CDT) pH Arterial 7.46(H) 7.35 - 7.45 pH 02/17/2021 12:22 AM [facility] pO2 Arterial 108(H) 80 - 100 mmHg 02/17/2021 12:22 AM [facility] pCO2 Arterial 40 35 - 45 mmHg 12:22 AM [facility] HCO3 Arterial 28 20 - 30 mmol/l 02/17/2021 12:22 AM [facility] BE Arterial 4.2(H) -2.0 - 2.0 mmol/L 02/17/2021 12:22 AM [facility] Oxyhemoglobin Arterial 96.5 % 02/17/2021 12:22 AM [facility] Dexoyhemoglobin (HHB) % 1.0 % 02/17/2021 12:22 AM [facility] Methemoglobin 0.9 0.0 - 2.0 % 02/17/2021 12:22 AM [facility] Carboxyhemoglobin 1.6 0.0 - 2.0 % 2020 12:22 AM [facility] O2 Content Arterial 19.1 Interpret within clinical context mg/dL 02/17/2021 12:22 AM [facility] Hemoglobin by COOX 14.0 12.0 - 17.6 g/dL 02/17/2021 12:22 AM [facility] O2 Saturation Arterial 99 90 - 100 % 02/17/2021 12:22 AM [facility] FI O2 Arterial 35.0 % 02/17/2021 12:22 AM [facility] Blood, arterial ARTERIAL BLOOD SPECIMEN / Unknown Arterial Puncture / Unknown 02/17/2021 12:12 AM CDT 02/17/2021 12:18 AM CDT Narrative [facility] - 02/17/2021 12:22 AM T Carboxyhemoglobin Normal Concentration: Non-smokers: 0-2%; Smokers: 0-9%; Toxic: >20% Fredy Felipe MD LAB - BLOOD GASES OR DERABLES [facility] [address] [place] [phone], [facility] [phone] * CT HEAD WO CONTRAST (02/16/2021 3:00 [...] mucosal disease. Dictated by Uyen Garcia MD (executive assistant to president). I, Dr. JUNE MADRID have personally reviewed and interpreted this examination/study. This report was electronically signed by UJNE MADRID ??on 02/17/2021 3:44 PM . Narrative [...] mucosal disease. Dictated by Uyen Garcia MD (executive assistant to president). I, Dr. JUNE MARDID have personally reviewed and interpreted this examination/study. [...] courses to the stomach out of the [id number]. Chest wall and lower neck subcutaneous emphysema is decreased from prior study. Pneumomediastinum is decreased from prior study. Mild left basilar atelectasis is unchanged. Pleural effusion may contribute to opacity. There is no pneumothorax. The cardiomediastinal silhouette is partially obscured. Dictated by Alverto Amse MD (executive assistant to president). Dr. EULA Yao have personally reviewed and [...] courses to the stomach out of the [id number]. Chest wall and lower neck subcutaneous emphysema is decreased from prior study. Pneumomediastinum is decreased from prior study. Mild left basilar atelectasis is unchanged. Pleural effusion may contribute to opacity. There is no pneumothorax. The cardiomediastinal silhouette is partially obscured. Dictated by Alverto Ames MD (executive assistant to president). I, Dr. EULA GONZALEZ have personally reviewed and interpreted this examination/study. This report was electronically signed by EULA GONZALEZ on 02/16/2021 12:26 PM . Fredy Felipe MD DIAGNOSTIC IMAGING O RDERABLES * (ABNORMAL) DIFFERENTIAL MANUAL (02/15/2021 10:34 PM CDT) WBC (corrected for NRBC) 24.3 10? 3 /uL 02/15/2021 11:58 PM [facility] Total Cell Count 100 02/16/20 21 11:58 PM [facility] Neutrophils Absolute Manual 22.36(H) 1.60 - 7.00 10? 3 /uL 02/15/2021 11:58 PM [facility] Comment:(BANDS+SEGS) x WBC = NEUT # (ANC) Lymphocyte Absolute Manual 0.49(L) 1.10 - 3.90 10? 3 /uL 02/15/2021 11:58 PM [facility] Monocytes Absolute Manual 1.46(H) 0.26 - 1.07 10? 3 /uL 02/15/2021 11:58 PM [facility] Band % Manual 4 0 - 10 % 02/15/2021 11:58 PM [facility] Neutrophil % Manual 88(H) 35 - 70 % 02/15/2021 11:58 PM [facility] Lymphocyte % Manual 2(L) 20 - 43 % 02/15/2021 11:58 PM [facility] Monocytes % Manual 6 5 - 13 % 02/15/2021 11:58 PM [facility] Platelet Estimate Adequate Adequate 02/15/2021 11:58 PM CDT [facility] Anisocytosis 1+(A) None 02/15/2021 11:58 PM CDT [facility] Blood BLOOD SPECIMEN / Unknown Venipuncture / Unknown 02/15/2021 10:34 PM CDT 02/15/2021 10:50 PM CDT Fredy Felipe MD LAB - HEMATOLOGY ORD ERABLES Performing Organization Address [facility] Co de Phone Number [facility] [address] [place] [address], [facility] [phone] * [facility] (02/15/2021 10:34 PM CDT) PT 14.6 12.1 - 14.8 Seconds 02/15/2021 11:05 PM CDT [facility] INR 1.2 See Comment 02/15/2021 11:05 PM CDT [facility] Comment:The suggested therap eutic range for standard coumadin (warfarin) therapy is an INR of 2.0-3.0. For high-risk patients (Mechanical Mitral Valve Prosthesis, etc.), the suggested prophylactic therapeutic range is an INR of 2.5-3.5. Blood BLOOD SPECIMEN / Unknown Venipuncture / Unknown 02/15/2021 10:34 PM CDT 02/15/2021 10:45 PM CDT Fredy Felipe MD LAB - COAGULATION OR DERABLES Performing Organization Address City/[facility] Co de Phone Number [facility] [address] [place] [phone], [facility] [phone] * PHOSPHORUS BLOOD (02/15/2021 10:34 PM CDT) Phosphorus 4.0 2.8 - 5.1 mg/dL 02/15/2021 11:17 PM CDT [facility] Blood BLOOD SPECIMEN / Unknown Venipuncture / Unknown 02/15/2021 10:34 PM CDT 02/15/2021 10:50 PM CDT Fredy Felipe MD LAB - CHEMISTRY JOSE ENRIQUE ADDISSILVA [address] [address], [place] [phone] * MAGNESIUM BLOOD (02/15/2021 10:34 PM CDT) Magnesium 1.8 1.6 - 2.6 mg/dL 02/15/2021 11:17 PM CDT [facility] Blood BLOOD SPECIMEN / Unknown Venipuncture / Unknown 02/15/2021 10:34 PM CDT 02/15/2021 10:50 PM CDT Fredy Felipe MD LAB - CHEMISTRY JOSE ENRIQUE VELA Performing Organization Address City/[facility]/ZIP Co de Phone Number [address] [address], [place] [phone] * (ABNORMAL) BASIC METABOLIC PANEL (CALCIUM TOTAL) (02/15/2021 10:34 PM CDT) BUN 9 7 - 26 mg/dL 02/15/2021 11:17 PM [facility] Creatinine 0.90 0.71 - 1.16 mg/dL 02/15/2021 11:17 PM [facility] Sodium 144 136 - 145 mmol/L 02/15/2021 11:17 PM [facility] Potassium 4.0 3.5 - 4.5 mmol/L 02/15/2021 11:17 PM [facility] Chloride 106 98 - 107 mmol/L 02/15/2021 11:17 PM [facility] CO2 26 22 - 29 mmol/L 02/15/2021 11:17 PM [facility] Glucose 118(H) 70 - 115 mg/dL 02/15/2021 11:17 PM [facility] Calcium 9.1 8.4 - 10.2 mg/dL 02/15/2021 11:17 PM [facility] Anion Gap 16 8 - 18 02/15/2021 11:17 PM [facility] BUN/Creatinine Ratio 10 7 - 23 02/15/2021 11:17 PM [facility] Osmolality Calculated 298 270 - 300 mOsm/kg 02/15/2021 11:17 PM [facility] eGFR by CKD-EPI >90 >=90 mL/min/1.7 3 m2 02/15/2021 11:17 PM [facility] Blood BLOOD SPECIMEN / Unknown Venipuncture / Unknown 02/15/2021 10:34 PM CDT 02/15/2021 10:50 PM CDT Fredy Felipe MD LAB - CHEMISTRY JOSE ENRIQUE VELA [facility] [address] [place] [address], [facility] [phone] * (ABNORMAL) BLOOD GASES ART + COOX PANEL (02/15/2021 10:34 PM CDT) pH Arterial 7.48(H) 7.35 - 7.45 pH 02/15/2021 10:50 PM [facility] pO2 Arterial 71(L) 80 - 100 mmHg 02/15/2021 10:50 PM [facility] pCO2 Arterial 38 35 - 45 mmHg 10:50 PM [facility] HCO3 Arterial 28 20 - 30 mmol/l 02/15/2021 10:50 PM [facility] BE Arterial 4.6(H) -2.0 - 2.0 mmol/L 02/15/2021 10:50 PM [facility] Oxyhemoglobin Arterial 93.4 % 02/15/2021 10:50 PM [facility] Dexoyhemoglobin (HHB) % 3.9 % 02/15/2021 10:50 PM [facility] Methemoglobin <0.8 0.0 - 2.0 % 02/15/2021 10:50 PM [facility] Carboxyhemoglobin 2.0 0.0 - 2.0 % 2020 10:50 PM [facility] O2 Content Arterial 18.8 Interpret within clinical context mg/dL 02/15/2021 10:50 PM [facility] Hemoglobin by COOX 14.3 12.0 - 17.6 g/dL 02/15/2021 10:50 PM [facility] O2 Saturation Arterial 96 90 - 100 % 02/15/2021 10:50 PM [facility] FI O2 Arterial 40.0 % 02/15/2021 10:50 PM [facility] Blood, arterial ARTERIAL BLOOD SPECIMEN / Unknown Arterial Puncture / Unknown 02/15/2021 10:34 PM CDT 02/15/2021 10:45 PM CDT [facility] - 02/15/2021 10:50 PM CDT Carboxyhemoglobin Normal Concentration: Non-smokers: 0-2%; Smokers: 0-9%; Toxic: >20% Fredy Felipe MD LAB - BLOOD GASES OR DERABLES Performing Organization Address City/State/[facility] Co de Phone Number [facility] [address] [place] [phone], [facility] [phone] * (ABNORMAL) CBC W AUTO DIFFERENTIAL (02/15/2021 10:34 PM CDT) WBC 24.3(H) 3.5 - 10.5 10? 3 /uL 02/15/2021 10:57 PM [facility] RBC 4.98 4.30 - 5.70 10? 6 /uL 02/15/2021 10:57 PM [facility] Hemoglobin 13.8 12.0 - 17.6 g/dL 02/15/2021 10:57 PM [facility] Hematocrit 42.1 35.2 - 51.7 % 02/15/2021 10:57 PM [facility] MCV 84.5 80.7 - 98.3 fL 02/15/2021 10:57 PM [facility] MCH 27.7 26.7 - 34.0 pg 02/15/2021 10:57 PM [facility] MCHC 32.8 30.8 - 35.9 g/dL 02/15/2021 10:57 PM [facility] Platelet Count 315 150 - 400 10? 3 /uL 02/15/2021 10:57 PM CDT [facility] RDW-SD 44.1 36.0 - 50.0 fL 02/15/2021 10:57 PM CDT [facility] RDW-CV 14.4 11.2 - 14.8 % 02/15/2021 10:57 PM CDT [facility] MPV 9.0(L) 9.4 - 12.9 fL 02/15/2021 10:57 PM CDT [facility] nRBC Absolute 0.00 0 10? 3 /uL 02/15/2021 10:57 PM CDT [facility] nRBC Auto 0.0 0 /100 WBC 02/15/2021 10:57 PM CDT [facility] Blood BLOOD SPECIMEN / Unknown Venipuncture / Unknown 02/15/2021 10:34 PM CDT 02/15/2021 10:50 PM CDT Fredy Felipe MD LAB - HEMATOLOGY ORD ISABELBLES [address] [address], [place] [phone] * (ABNORMAL) CALCIUM IONIZED WHOLE BLOOD (02/15/2021 10:34 PM CDT) Pathologist [facility] Calcium Ionized 1.17 mmol/L 02/15/2021 10:53 PM CDT [facility] pH 7.50(H) 7.35 - 7.45 pH 02/15/2021 10:53 PM CDT [facility] Ionized Calcium pH Adjusted 1.22 1.19 - 1.34 mmol/L 02/15/2021 10:53 PM CDT [facility] Blood BLOOD SPECIMEN / Unknown Venipuncture / Unknown 02/15/2021 10:34 PM CDT 02/15/2021 10:46 PM CDT Fredy Felipe MD LAB - CHEMISTRY ORDNolan VELA [address] [address], [place] [phone] * (ABNORMAL) BLOOD GASES ART + COOX PANEL (02/15/2021 10:41 AM [facility]) pH Arterial 7.46(H) 7.35 - 7.45 pH 02/15/2021 10:47 AM [facility] pO2 Arterial 99 80 - 100 mmHg 02/15/2021 10:47 AM [facility] pCO2 Arterial 37 35 - 45 mmHg 10:47 AM [facility] HCO3 Arterial 26 20 - 30 mmol/l 02/15/2021 10:47 AM [facility] BE Arterial 2.6(H) -2.0 - 2.0 mmol/L 02/15/2021 10:47 AM [facility] Oxyhemoglobin Arterial 96.5 % 02/15/2021 10:47 AM [facility] Dexoyhemoglobin (HHB) % 1.2 % 02/15/2021 10:47 AM [facility] Methemoglobin 0.9 0.0 - 2.0 % 02/15/2021 10:47 AM [facility] Carboxyhemoglobin 1.4 0.0 - 2.0 % 2020 10:47 AM [facility] O2 Content Arterial 21.4 Interpret within clinical context mg/dL 02/15/2021 10:47 AM [facility] Hemoglobin by COOX 15.7 12.0 - 17.6 g/dL 02/15/2021 10:47 AM [facility] O2 Saturation Arterial 99 90 - 100 % 02/15/2021 10:47 AM [facility] FI O2 Arterial 50.0 % 02/15/2021 10:47 AM [facility] Blood, arterial ARTERIAL BLOOD SPECIMEN / Unknown Arterial Puncture / Unknown 02/15/2021 10:41 AM [facility] 02/15/2021 10:45 AM [facility] - 02/15/2021 10:47 AM [facility] Carboxyhemoglobin Normal Concentration: Non-smokers: 0-2%; Smokers: 0-9%; Toxic: >20% Fredy Felipe MD LAB - BLOOD GASES OR DERABLES Performing Organization Address [facility]/ZIP Co de Phone Number [address] [address], [facility] [phone] * (ABNORMAL) CALCIUM IONIZED WHOLE BLOOD (02/15/2021 10:41 AM CDT) [facility] Calcium Ionized 1.19 mmol/L 02/15/2021 10:47 AM CDT [facility] pH 7.46(H) 7.35 - 7.45 pH 02/15/2021 10:47 AM CDT [facility] Ionized Calcium pH Adjusted 1.22 1.19 - 1.34 mmol/L 02/15/2021 10:47 AM [facility] Blood BLOOD SPECIMEN / Unknown Venipuncture / Unknown 02/15/2021 10:41 AM CDT 02/15/2021 10:44 AM CDT Fredy Felipe MD LAB - CHEMISTRY JOSE ENRIQUE VELA Performing Organization Address [facility] Co de Phone Number [address] [address], [facility] [phone] * (ABNORMAL) DIFFERENTIAL MANUAL (02/15/2021 10:40 AM CDT) [facility] WBC (corrected for NRBC) 35.7 10? 3 /uL 02/15/2021 11:39 AM [facility] Total Cell Count 100 02/15/2021 11:39 AM [facility] Neutrophils Absolute Manual 33.56(H) 1.60 - 7.00 10? 3 /uL 02/15/2021 11:39 AM [facility] Comment:(BANDS+SEGS) x WBC = NEUT # (ANC) Lymphocyte Absolute Manual 0.71(L) 1.10 - 3.90 10? 3 /uL 02/15/2021 11:39 AM [facility] Monocytes Absolute Manual 1.43(H) 0.26 - 1.07 10? 3 /uL 02/15/2021 11:39 AM [facility] Band % Manual 2 0 - 10 % 02/15/2021 11:39 AM [facility] Neutrophil % Manual 92(H) 35 - 70 % 02/15/2021 11:39 AM CDT [facility] Lymphocyte % Manual 2(L) 20 - 43 % 02/15/2021 11:39 AM CDT [facility] Monocytes % Manual 4(L) 5 - 13 % 02/15/2021 11:39 AM CDT [facility] Platelet Estimate Adequate Adequate 02/15/2021 11:39 AM CDT [facility] RBC Morphology Normal 02/15/2021 11:39 AM CDT [facility] Blood BLOOD SPECIMEN / Unknown Venipuncture / Unknown 02/15/2021 10:40 AM CDT 02/15/2021 10:48 AM CDT Fredy Felipe MD LAB - HEMATOLOGY ORD ERABLES Performing Organization Address [facility]/ZIP Co de Phone Number [address] [address], [facility] [phone] * (ABNORMAL) PHOSPHORUS BLOOD (02/15/2021 10:40 AM CDT) Phosphorus 2.4(L) 2.8 - 5.1 mg/dL 02/15/2021 11:14 AM CDT [facility] Blood BLOOD SPECIMEN / Unknown Venipuncture / Unknown 02/15/2021 10:40 AM CDT 02/15/2021 10:48 AM CDT Fredy Felipe MD LAB - CHEMISTRY ORDNolan VELA [address] [address], [place] [phone] * MAGNESIUM BLOOD (02/15/2021 10:40 AM CDT) Magnesium 1.8 1.6 - 2.6 mg/dL 02/15/2021 11:14 AM CDT [facility] Blood BLOOD SPECIMEN / Unknown Venipuncture / Unknown 02/15/2021 10:40 AM CDT 02/15/2021 10:48 AM CDT Fredy Felipe MD LAB - CHEMISTRY JOSE ENRIQUE Pena Organization Address City/State/ZIP Co de Phone Number [facility] [address] [place] [address], [facility] [phone] * (ABNORMAL) CBC W AUTO DIFFERENTIAL (02/15/2021 10:40 AM CDT) WBC 35.7(H) 3.5 - 10.5 10? 3 /uL 02/15/2021 11:16 AM [facility] RBC 5.37 4.30 - 5.70 10? 6 /uL 02/15/2021 11:16 AM [facility] Hemoglobin 15.2 12.0 - 17.6 g/dL 02/15/2021 11:16 AM [facility] Hematocrit 45.5 35.2 - 51.7 % 02/15/2021 11:16 AM [facility] MCV 84.7 80.7 - 98.3 fL 02/15/2021 11:16 AM [facility] MCH 28.3 26.7 - 34.0 pg 02/15/2021 11:16 AM [facility] MCHC 33.4 30.8 - 35.9 g/dL 02/15/2021 11:16 AM [facility] Platelet Count 358 150 - 400 10? 3 /uL 02/15/2021 11:16 AM [facility] RDW-SD 43.5 36.0 - 50.0 fL 02/15/2021 11:16 AM [facility] RDW-CV 14.2 11.2 - 14.8 % 02/15/2021 11:16 AM [facility] MPV 8.9(L) 9.4 - 12.9 fL 02/15/2021 11:16 AM [facility] nRBC Absolute 0.00 0 10? 3 /uL 02/15/2021 11:16 AM [facility] nRBC Auto 0.0 0 /100 WBC 02/15/2021 11:16 AM [facility] Blood BLOOD SPECIMEN / Unknown Venipuncture / Unknown 02/15/2021 10:40 AM CDT 02/15/2021 10:48 AM T Fredy Felipe MD LAB - HEMATOLOGY ORD ERABLES [facility] [address] [place] [address], [facility] [phone] * (ABNORMAL) COMPREHENSIVE METABOLIC PANEL (02/15/2021 10:40 AM CDT) BUN 10 7 - 26 mg/dL 02/15/2021 11:14 AM [facility] Creatinine 1.02 0.71 - 1.16 mg/dL 02/15/2021 11:14 AM [facility] Sodium 144 136 - 145 mmol/L 02/15/2021 11:14 AM [facility] Potassium 3.8 3.5 - 4.5 mmol/L 02/15/2021 11:14 AM [facility] Chloride 105 98 - 107 mmol/L 02/15/2021 11:14 AM [facility] CO2 26 22 - 29 mmol/L 02/15/2021 11:14 AM [facility] Glucose 171(H) 70 - 115 mg/dL 02/15/2021 11:14 AM [facility] Calcium 9.6 8.4 - 10.2 mg/dL 02/15/2021 11:14 AM [facility] Protein Total 6.9 6.0 - 8.3 g/dL 02/15/2021 11:14 AM [facility] Albumin 3.5 3.4 - 5.0 g/dL 02/15/2021 11:14 AM [facility] Bilirubin Total 0.4 0.2 - 1.2 mg/dL 02/15/2021 11:14 AM [facility] Alkaline Phosphatase 97 40 - 150 U/L 02/15/2021 11:14 AM [facility] ALT 78(H) 5 - 55 U/L 02/15/2021 11:14 AM [facility] AST 96(H) 5 - 34 U/L 02/15/2021 11:14 AM CDT [facility] Anion Gap 17 8 - 18 02/15/2021 11:14 AM [facility] BUN/Creatinine Ratio 10 7 - 23 02/15/2021 11:14 AM [facility] Osmolality Calculated 301(H) 270 - 300 mOsm/kg 02/15/2021 11:14 AM [facility] Albumin/Globulin Ratio 1.0(L) 1.1 - 2.3 02/15/2021 11:14 AM [facility] eGFR by CKD-EPI >90 >=90 mL/min/1.7 3 m2 02/15/2021 11:14 AM [facility] Blood BLOOD SPECIMEN / Unknown Venipuncture / Unknown 02/15/2021 10:40 AM CDT 02/15/2021 10:48 AM CDT Fredy Felipe MD LAB - CHEMISTRY JOSE ENRIQUE VELA Performing Organization Address City/[facility]/ZIP Co de Phone Number [facility] [address] [place] [phone] [phone] * TEG 6 GLOBAL HEMOSTASIS W/ LYSIS (02/15/2021 8:14 AM CDT) Citrated Kaolin R (Reaction Time) 7.0 4.6 - 9.1 min 02/15/2021 9:28 AM CDT [facility] Citrated Kaolin LY30 (Lysis) 0.6 0.0 - 2.6 % 02/15/2021 9:28 AM CDT [facility] Citrated RapidTEG MA (Max Amplitude) 65 52 - 70 mm 02/15/2021 9:28 AM CDT [facility] Citrated Functional Fibrinogen MA (Max Amplitude) 23 15 - 32 mm 02/15/2021 9:28 AM T [facility] Blood BLOOD SPECIMEN / Unknown Venipuncture / Unknown 02/15/2021 8:14 AM CDT 02/15/2021 8:20 AM CDT Fredy Felipe MD LAB - HEMATOLOGY ORD ERABLES [facility] [address] [place] [address], [facility] [phone] * (ABNORMAL) TEG 6S PLATELET MAPPING (02/15/2021 8:14 AM CDT) TEGPLM (Max Amplitude) Koalin 64 53 - 68 mm 02/15/2021 9:13 AM CDT [facility] TEGPLM (Max Amplitude) ACTF 14 2 - 19 mm 02/15/2021 9:13 AM CDT [facility] TEGPLM (Max Amplitude) ADP 15(L) 45 - 69 mm 02/15/2021 9:13 AM CDT [facility] TEGPLM (Max Amplitude) AA 64 51 - 71 mm 02/15/2021 9:13 AM CDT [facility] TEGPLM %Inhibition ADP 99(H) 0 - 17 % 02/15/2021 9:13 AM CDT [facility] TEGPLM %Inhibition AA 1 0 - 11 % 02/15/2021 9:13 AM CDT [facility] TEGPLM %Aggregation ADP 1(L) 83 - 100 % 02/15/2021 9:13 AM CDT [facility] TEGPLM % Aggregation AA 99 89 - 100 % 02/15/2021 9:13 AM CDT [facility] Blood BLOOD SPECIMEN / Unknown Venipuncture / Unknown 02/15/2021 8:14 AM CDT 02/15/2021 8:20 AM CDT Fredy Felipe MD LAB - HEMATOLOGY ORD ERABLES [address] [address], [facility] [phone] * XR CHEST 1VW PORTABLE (02/15/2021 7:15 [...] findings above. Dictated by Rico Sawant DO (executive assistant to president). Dr. EULA Yao have personally reviewed and [...] lung base atelectasis. No largepleural effusion. Per [facility] primary team is aware of the findings above. Dictated by Rico Sawant DO (executive assistant to president). Dr. EULA Yao have personally reviewed and interpreted this examination/study. This report was electronically signed by EULA GONZALEZ on 02/15/2021 7:28 PM . Fredy Felipe MD DIAGNOSTIC IMAGING O RDERABLES * (ABNORMAL) URINALYSIS W/MICROSCOPIC NO CULTURE (02/15/2021 6:46 AM [facility]) Color UA Yellow Straw, Yellow 02/15/2021 7:10 AM [facility] Clarity UA Slt Cloudy(A) Clear 02/15/2021 7:10 AM [facility] Specific [place] UA 1.014 1.005 - 1.030 02/15/2021 7:10 AM [facility] pH UA 6.0 5.0 - 8.0 pH 02/15/2021 7:10 AM [facility] Protein UA 2+(A) Negative 02/15/2021 7:10 AM [facility] Glucose UA 3+(A) Negative 02/15/2021 7:10 AM [facility] Ketone UA Trace(A) Negative 02/15/2021 7:10 AM [facility] Bilirubin UA Negative Negative 02/15/2021 7:10 AM [facility] Blood UA Negative Negative 02/15/2021 7:10 AM [facility] Nitrite UA Negative Negative 02/15/2021 7:10 AM [facility] Leukocyte Esterase Negative Negative 02/15/2021 7:10 AM [facility] Urobilinogen UA Negative Negative mg/dL 02/15/2021 7:10 AM [facility] RBC UA 3-5 None Seen, 0-2, 3-5 /HPF 02/15/2021 7:10 AM [facility] WBC UA 0-5 None Seen, 0-5 /HPF 02/15/2021 7:10 AM [facility] Squamous Epithelial Cells UA None Seen None Seen, 0-2, 3-5 /HPF 02/15/2021 7:10 AM [facility] Mucus UA 1+ /LPF 02/15/2021 7:10 AM [facility] Urine URINE SPECIMEN OBTAINED BY CLEAN CATCH PROCEDURE / Unknown Collection / Unknown 02/15/2021 6:46 AM CDT 02/15/2021 6:49 AM CDT Narrative [facility] - 02/15/2021 7:10 AM CDT Fredy Felipe MD LAB - URINALYSIS ORD ERABLES [facility] [address] [place] [address], [facility] [phone] * (ABNORMAL) URINE DRUG SCREEN IMMUNOASSAY (02/15/2021 6:46 AM CDT) Pathologist [facility] Amphetamines Screen Urine Negative Negative : < 1000 ng/mL 02/15/2021 7:18 AM [facility] Barbiturates Screen Urine Negative Negative : < 200 ng/mL 02/15/2021 7:18 AM [facility] Benzodiazepine Screen Urine Positive(A) Negative : < 200 ng/mL 02/15/2021 7:18 AM [facility] Comment: Positive urine benzodiazepine screening results should be confirmed by another generally accepted non-immunological method such as gas chromatography or mass spectrometry. ? Opiates Urine Negative Negative : < 300 ng/mL 02/15/2021 7:18 AM [facility] Cocaine Metabolites Urine Negative Negative : < 300 ng/mL 02/15/2021 7:18 AM [facility] Phencyclidine Screen Urine Negative Negative : < 25 ng/ml 02/15/2021 7:18 AM [facility] Cannabinoids Screen Urine Positive(A) Negative : <50 ng/mL 02/15/2021 7:18 AM [facility] Comment:Positive urine canna binoids (THC) screening results should be confirmed by another generally accepted non-immunological method such as gas chromatography or mass spectrometry. Methadone Screen Urine Negative Negative : < 300 ng/mL 02/15/2021 7:18 AM [facility] Fentanyl Screen Urine Positive(A) Negative : <1.0 ng/mL 02/15/2021 7:18 AM [facility] Comment:Positive urine fenta nyl screening results should be confirmed by another generally accepted non-immunological method such as gas chromatography or mass spectrometry. Urine URINE / Unknown Collection / Unknown 02/15/2021 6:46 AM CDT 02/15/2021 6:54 AM CDT Narrative [facility] - 02/15/2021 7:18 AM CDT The Urine Toxicology Screening Panel does not screen for Propoxyphene, Meprobamate, Carisoprodol, Trazodone, vytn-aik-nxfnzux medications and/or volatiles (Acetone, Isopropanol, Methanol or Ethylene Glycol). Ethanol, Salicylate, Acetaminophen, Tricyclic Antidepressants and several therapeutic drugs may be individually assayed in serum or plasma specimen. Toxicology testing by the [facility] is an aid to medical diagnosis and treatment of patients. No documented chain of custody was maintained. Results are intended to be used for clinical purposes only. ? Fredy Felipe MD LAB - URINE CHEMISTR Y ORDERABLES Performing Organization Address [facility] Co de Phone Number [facility] [address] [place] [phone], [facility] [phone] * SARS-COV-2 (COVID-19) INTERNAL (02/15/2021 6:44 AM CDT) COVID-19 PCR Not detected Not detected 02/15/2021 1:54 PM CDT [facility] MICRO[facility]OLOG[facility] Microbiology SPECIMEN FROM NASOPHARYNGEAL STRUCTURE / Unknown Collection / Unknown 02/15/2021 6:44 AM CDT 02/15/2021 6:47 AM CDT Narrative [facility] - 02/15/2021 1:54 PM CDT This nucleic acid amplification assay performance was validated by [facility]. This test has been [...] Felipe MD LAB - MICROBIOLOGY O RDERABLES [facility] [address] [place] [address], [facility] [phone] * [facility] (02/15/2021 6:42 AM CDT) APTT 26.9 23.0 - 38.4 Seconds 02/15/2021 7:40 AM CDT [facility] Comment:Suggested therapeuti c range for full dose I.V. unfractionated heparin therapy for venous thromboembolism is 71 to 109 seconds. Blood BLOOD SPECIMEN / Unknown Venipuncture / Unknown 02/15/2021 6:42 AM CDT 02/15/2021 6:48 AM CDT Fredy Felipe MD LAB - COAGULATION OR DERABLES [facility] [address] [place] [address], [place] [phone] * (ABNORMAL) DIFFERENTIAL MANUAL (02/15/2021 6:42 AM CDT) WBC (corrected for NRBC) 35.3 10? 3 /uL 02/15/2021 7:58 AM [facility] Total Cell Count 100 02/15/2021 7:58 AM [facility] Neutrophils Absolute Manual 32.48(H) 1.60 - 7.00 10? 3 /uL 02/15/2021 7:58 AM [facility] Comment:(BANDS+SEGS) x WBC = NEUT # (ANC) Lymphocyte Absolute Manual 0.71(L) 1.10 - 3.90 10? 3 /uL 02/15/2021 7:58 AM [facility] Monocytes Absolute Manual 1.77(H) 0.26 - 1.07 10? 3 /uL 02/15/2021 7:58 AM [facility] Basophil Absolute Manual 0.35(H) 0.00 - 0.08 10? 3 /uL 02/15/2021 7:58 AM [facility] Neutrophil % Manual 92(H) 35 - 70 % 02/15/2021 7:58 AM [facility] Lymphocyte % Manual 2(L) 20 - 43 % 02/15/2021 7:58 AM [facility] Monocytes % Manual 5 5 - 13 % 02/15/2021 7:58 AM [facility] Basophils % Manual 1 0 - 2 % 02/15/2021 7:58 AM [facility] Platelet Estimate Adequate Adequate 02/15/2021 7:58 AM [facility] RBC Morphology Normal 02/15/2021 7:58 AM [facility] Blood BLOOD SPECIMEN / Unknown Venipuncture / Unknown 02/15/2021 6:42 AM CDT 02/15/2021 6:49 AM CDT Fredy Felipe MD LAB - HEMATOLOGY ORD ERABLES [facility] [address] [place] [address], [facility] [phone] * (ABNORMAL) CALCIUM IONIZED WHOLE BLOOD (02/15/2021 6:42

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
--- OUTSIDE RECORDS SUMMARY | 2024-05-23 03:29 | XMS_ITS | Encounter Summary ---
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 CHOCO Yao MD have personally reviewed [...] are normal. Dictated by Rico Sawant DO (doctor of radiology). Dr. AFRICA Yao M.D. have personally reviewed [...] coursing below the diaphragm, terminus outside the mdraq-sp-usxb. *There is a left subclavian approach central [...] is stable. Dictated by Rico Sawant DO (doctor of radiology). I, Dr. AFRICA HENRIQUEZ M.D. have personally [...] below the diaphragm, the segments of the bwlib-bl-fvax. *There is a left subclavian approach central [...] is stable. Dictated by Phan Brothers MD (doctor of radiology). Dr. SUNITA Yao have personally reviewed and [...] is normal. Dictated by Rico Sawant DO (doctor of radiology). IDr. NAOMY MD, [facility] have personally reviewed and interpreted this [...] Dr. Carrion Dictated by Bety Rose MD (doctor of radiology). This report was approved by Bety oRse on 02/20/2021 11:19 AM . I, Dr. [...] is normal. Dictated by Rico Sawant DO (doctor of radiology). I, Dr. OSWALDO CLEMONS have personally reviewed [...] Report dictated by Simone Alexander MD, PhD (doctor of radiology). I, Dr. CHOCO JIN MD have personally [...] Report dictated by Simone Alexander MD, PhD (doctor of radiology). I, Dr. NENA CLEMENTE have personally reviewed [...] the diaphragm with the terminus outside the hwqjp-ex-zdru. *Bilateral apically oriented thoracostomy tubes are reidentified. [...] on 02/17/2021. Dictated by Rico Sawant DO (doctor of radiology). I, Dr. OSWALDO CLEMONS have personally reviewed [...] mucosal disease. Dictated by Uyen Garcia MD (doctor of radiology). IDr. JUNE have personally reviewed and interpreted [...] courses to the stomach out of the dwpmm-gb-bdpg. Chest wall and lower neck subcutaneous emphysema is decreased from prior study. Pneumomediastinum is decreased from prior study. Mild left basilar atelectasis is unchanged. Pleural effusion may contribute to opacity. There is no pneumothorax. The cardiomediastinal silhouette is partially obscured. Dictated by Alverto Ames MD (doctor of radiology). Dr. EULA Yao have personally reviewed and [...] findings above. Dictated by Rico Sawant DO (doctor of radiology). Dr. EULA Yao have personally reviewed and [...] the diaphragm, with its tip outside the jirvx-yv-ctcs. Linear airspace opacities are seen in the right upper and mid lung. Findings may be related to compressive atelectasis or pulmonary contusion in the post traumatic setting. There are linear bibasilar opacities, likely representing atelectasis or aspiration in the posttraumatic/post intubated setting. There is no left pleural effusion. No pneumothorax. The cardiomediastinal silhouette is normal. Dictated by Phan Brothers MD (doctor of radiology). Dr. EULA Yao have personally reviewed and [...] 4:32 AM. Dictated by Arlen Abbott MD (doctor of radiology). Najma, Dr. EULA GONZALEZ have personally reviewed [...] is intact. Dictated by Phan Brothers MD (doctor of radiology). I, Dr. EULA GONZALEZ have personally reviewed [...] Fraga MD - 02/23/2021 6:23 AM CDT [facility] Trauma ICU Progress Note Admit: 02/15/2021 [...] , Last Rate: 42.13 mL/hr at 02/22/21 7335 PRN Medications: 0.9% NaCl, 1-10 mL, PRN [...] [Urine:1230; Drains:1750] Date 02/22/21699 - 02/23/21 0659 02/23/21 07 - 02/24/21 0659 Shift 6332-4058 2806-6137 24 Hour Total 9991-5055 6825-1482 24 Hour Total INTAKE I.V.(mL/kg/hr) 1328.1(0.7) 1328.1 Tube 30 30 Shift Total(mL/kg) 1328.1(8.3) 30(0.2) 1358.1(8.5) OUTPUT Urine(mL/kg/hr) 860(0.4) 370 1230 Drains 415 888 6425 Shift Total(mL/kg) 1785(11.1) 1195(7.5) 2980(18.6) NET -456.9 [...] CBC Recent Labs Component Name 02/23/212002/21/212 02/20/21 232 WBC 13.5* 14.5* 14.6* HGB 12.0 13.7 15.0 HCT 38.1 41.8 46.7 PLTCOUNT 403* 374 392 BMP Recent Labs Component Name 02/23/212002/21/21231102/20/21 232 POTASSIUM 4.2 4.3 4.0 CO2 30* 22 [...] not displayed. ABG Recent Labs Component Name 02/23/212002/22/21 0317 02/21/21 2312 PH 7.43 7.41 7.60* [...] fracture identified. Dictated by Rico Sawant D.O. (Machine Finisher) Dr. CHOCO Yao MD have personally reviewed [...] are normal. Dictated by Rico Sawant DO (doctor of radiology). Dr. AFRICA Yao M.D. have personally reviewed [...] coursing below the diaphragm, terminus outside the ygccf-li-hedw. *There is a left subclavian approach central [...] is stable. Dictated by Rico Sawant DO (doctor of radiology). I, Dr. AFRICA HENRIQUEZ M.D. have personally [...] below the diaphragm, the segments of the nhjbr-zw-oxdx. *There is a left subclavian approach central [...] is stable. Dictated by Phan Brothers MD (doctor of radiology). Dr. SUNITA Yao have personally reviewed and [...] is normal. Dictated by Rico Sawant DO (doctor of radiology). Dr. NAOMY Yao MD, [facility] have personally reviewed and interpreted this examination/study. This report was electronically signed by NAOMY LAZO MD, [facility] on 02/20/2021 2:18 PM . MRI [...] Dr. Carrion Dictated by Bety Rose MD (doctor of radiology). This report was approved by Bety Rose [...] is normal. Dictated by Rico Sawant DO (doctor of radiology). IDr. OSWALDO have personally reviewed and interpreted [...] Report dictated by Simone Alexander MD, PhD (doctor of radiology). Dr. CHOCO Yao MD have personally reviewed [...] Report dictated by Simone Alexander MD, PhD (doctor of radiology). I, Dr. NENA CLEMENTE have personally reviewed [...] the diaphragm with the terminus outside the ukkno-ht-ivig. *Bilateral apically oriented thoracostomy tubes are reidentified. [...] on 02/17/2021. Dictated by Rico Sawant DO (doctor of radiology). IDr. OSWALDO have personally reviewed and interpreted [...] mucosal disease. Dictated by Uyen Garcia MD (doctor of radiology). I, Dr. JUNE MADRID have personally reviewed [...] courses to the stomach out of the lknml-cx-bzbi. Chest wall and lower neck subcutaneous emphysema is decreased from prior study. Pneumomediastinum is decreased from prior study. Mild left basilar atelectasis is unchanged. Pleural effusion may contribute to opacity. There is no pneumothorax. The cardiomediastinal silhouette is partially obscured. Dictated by Alverto Ames MD (doctor of radiology). Dr. EULA Yao have personally reviewed and [...] findings above. Dictated by Rico Sawant DO (doctor of radiology). Dr. EULA Yao have personally reviewed and [...] the diaphragm, with its tip outside the bnjbd-uh-dqjk. Linear airspace opacities are seen in the right upper and mid lung. Findings may be related to compressive atelectasis or pulmonary contusion in the post traumatic setting. There are linear bibasilar opacities, likely representing atelectasis or aspiration in the posttraumatic/post intubated setting. There is no left pleural effusion. No pneumothorax. The cardiomediastinal silhouette is normal. Dictated by Phan Brothers MD (doctor of radiology). Dr. EULA Yao have personally reviewed and [...] 4:32 AM. Dictated by Arlen Abbott MD (doctor of radiology). Dr. EULA Yao have personally reviewed and [...] bony thorax is intact. Dictated by Phan Borthers MD (doctor of radiology). Dr. EULA Yao have personally reviewed and [...] Fraga MD - 02/22/2021 5:14 AM CDT [facility] Trauma ICU Progress Note Admit: 02/15/2021 [...] NO EXCEPTIONS Is&Os: 02/21 701 - 02/22 07 In: 3353.2 [I.V.:3353.2] Out: 8805 [Urine:1055; Drains:7750] Date 02/21/21699 - 02/22/2165802/22/21699 - 02/23/21658 Shift 5412-2624 7855-8045 24 Hour Total 9006-7629 9735-4678 24 Hour Total INTAKE I.V.(mL/kg/hr) 1643.3(0.9) 1709.9 [...] fracture identified. Dictated by Rico Sawant D.O. (Machine Finisher) Dr. CHOCO Yao MD have personally reviewed [...] are normal. Dictated by Rico Sawant DO (doctor of radiology). Dr. AFRICA Yao M.D. have personally reviewed [...] coursing below the diaphragm, terminus outside the fjoqh-qx-huxu. *There is a left subclavian approach central [...] is stable. Dictated by Rico Sawant DO (doctor of radiology). Dr. AFRICA Yao M.D. have personally reviewed [...] below the diaphragm, the segments of the anvrb-us-aooq. *There is a left subclavian approach central [...] is stable. Dictated by Phan Brothers MD (doctor of radiology). Dr. SUNITA Yao have personally reviewed and [...] is normal. Dictated by Rico Sawant DO (doctor of radiology). IDr. NAOMY MD, [facility] have personally reviewed and interpreted this [...] Dr. Carrion Dictated by Bety Rose MD (doctor of radiology). This report was approved by Bety Rose [...] is normal. Dictated by Rico Sawant DO (doctor of radiology). I, Dr. OSWALDO CLEMONS have personally reviewed [...] Report dictated by Simone Alexander MD, PhD (doctor of radiology). I, Dr. CHOCO JIN MD have personally [...] Report dictated by Simone Alexander MD, PhD (doctor of radiology). I, Dr. NENA CLEMENTE have personally reviewed [...] the diaphragm with the terminus outside the vuhwz-ok-ksrv. *Bilateral apically oriented thoracostomy tubes are reidentified. [...] on 02/17/2021. Dictated by Rico Sawant DO (doctor of radiology). IDr. OSWALDO have personally reviewed and interpreted [...] mucosal disease. Dictated by Uyen Garcia MD (doctor of radiology). Dr. JUNE Yao have personally reviewed and [...] courses to the stomach out of the gieih-ae-jupv. Chest wall and lower neck subcutaneous emphysema is decreased from prior study. Pneumomediastinum is decreased from prior study. Mild left basilar atelectasis is unchanged. Pleural effusion may contribute to opacity. There is no pneumothorax. The cardiomediastinal silhouette is partially obscured. Dictated by Alverto Ames MD (doctor of radiology). Dr. EULA Yao have personally reviewed and [...] findings above. Dictated by Rico Sawant DO (doctor of radiology). Dr. EULA Yao have personally reviewed and [...] the diaphragm, with its tip outside the wurgf-eh-syaf. Linear airspace opacities are seen in the right upper and mid lung. Findings may be related to compressive atelectasis or pulmonary contusion in the post traumatic setting. There are linear bibasilar opacities, likely representing atelectasis or aspiration in the posttraumatic/post intubated setting. There is no left pleural effusion. No pneumothorax. The cardiomediastinal silhouette is normal. Dictated by Phan Brothers MD (doctor of radiology). Dr. EULA Yao have personally reviewed and [...] 4:32 AM. Dictated by Arlen Abbott MD (doctor of radiology). Najma, Dr. EULA GONZALEZ have personally reviewed [...] is intact. Dictated by Phan Brothers MD (doctor of radiology). I, Dr. EULA GONZALEZ have personally reviewed [...] Amaral RN on 02/22/21 * Danika Guerrero Jr. RN - 02/21/2021 11:26 PM CDT Problem: [...] clinical nutrition guidelines. Estimated Energy Needs: KCAL: 0454-1858 (11-14kcla/kg ABW) Protein (g): 129 (2.0g/kg IBW) Fluid (ml): 1 ml/kcal Needs based on: Kcal/kg- (Comment) (ibw 64.5kg ) Recommended Access Route: [id number] * Sonali Fraga MD - 02/21/2021 5:18 AM CDT [facility] Trauma ICU Progress Note Admit: 02/15/2021 [...] DIET NPO Except: NO EXCEPTIONS Is&Os: 02/20 07 - 02/21 07 In: 2934.5 [I.V.:2934.5] Out: 1909 [Urine:1290; Drains:620] Date 02/20/21699 - 02/21/2165802/21/21699 - 02/22/21 0659 Shift 6491-0298 6753-3779 24 Hour Total 3571-2440 5184-2356 24 Hour Total INTAKE I.V.(mL/kg/hr) 1591.5(0.8) 1343 [...] 97 Coags Recent Labs Component Name 02/20/21232502/19/21233502/18/21 23002/15/21 2234 02/15/21 0642 02/15/21 0308 PT 14.8 14.1 14.1 - 13.8 - INR 1.2 1.1 1.1 - 1.1 - PTT - - - - 26.9 23.5 - = values in this interval not displayed. ABG Recent Labs Component Name 02/20/21232502/20/217 02/19/21 2336 PH 7.41 7.41 7.42 PO2 131* 88 [...] coursing below the diaphragm, terminus outside the euytd-xp-rtln. *There is a left subclavian approach central [...] is stable. Dictated by Rico Sawant DO (doctor of radiology). I, Dr. AFRICA HENRIQUEZ M.D. have personally [...] below the diaphragm, the segments of the acfqr-pu-zmzx. *There is a left subclavian approach central [...] is stable. Dictated by Phan Brothers MD (doctor of radiology). Dr. SUNITA Yao have personally reviewed and [...] is normal. Dictated by Rico Sawant DO (doctor of radiology). I, Dr. NAOMY LAZO MD, [facility] have [...] Dr. Carrion Dictated by Bety Rose MD (doctor of radiology). This report was approved by Bety Rose [...] is normal. Dictated by Rico Sawant DO (doctor of radiology). I, Dr. OSWALDO CLEMONS have personally reviewed [...] Report dictated by Simone Alexander MD, PhD (doctor of radiology). I, Dr. CHOCO JIN MD have personally [...] Report dictated by Simone Alexander MD, PhD (doctor of radiology). I, Dr. NENA CLEMENTE have personally reviewed [...] the diaphragm with the terminus outside the soqoq-tx-rucs. *Bilateral apically oriented thoracostomy tubes are reidentified. [...] on 02/17/2021. Dictated by Rico Sawant DO (doctor of radiology). I, Dr. OSWALDO CLEMONS have personally reviewed [...] mucosal disease. Dictated by Uyen Garcia MD (doctor of radiology). IDr. JUNE have personally reviewed and interpreted [...] courses to the stomach out of the qztnx-lk-pbbb. Chest wall and lower neck subcutaneous emphysema is decreased from prior study. Pneumomediastinum is decreased from prior study. Mild left basilar atelectasis is unchanged. Pleural effusion may contribute to opacity. There is no pneumothorax. The cardiomediastinal silhouette is partially obscured. Dictated by Alverto Ames MD (doctor of radiology). Dr. EULA Yao have personally reviewed and [...] findings above. Dictated by Rico Sawant DO (doctor of radiology). Dr. EULA Yao have personally reviewed and [...] the diaphragm, with its tip outside the xsxiv-bc-kepp. Linear airspace opacities are seen in the right upper and mid lung. Findings may be related to compressive atelectasis or pulmonary contusion in the post traumatic setting. There are linear bibasilar opacities, likely representing atelectasis or aspiration in the posttraumatic/post intubated setting. There is no left pleural effusion. No pneumothorax. The cardiomediastinal silhouette is normal. Dictated by Phan Brothers MD (doctor of radiology). Dr. EULA Yao have personally reviewed and [...] 4:32 AM. Dictated by Arlen Abbott MD (doctor of radiology). I, Dr. EULA GONZALEZ have personally reviewed [...] is intact. Dictated by Phan Brothers MD (doctor of radiology). I, Dr. EULA GONZALEZ have personally reviewed [...] call Noemi for changes. Sister Noemi Tyler [phone] Aunt Mainor [phone] Problem: Pain/Discomfort Goal: Patient exhibits reduced pain/discomfort [...] 02/20/2021 2:24 PM CDT [facility] Stroke Progress Note Jaime Tyler Age: [age] [...] Sonia Donato - 02/20/2021 12:24 PM CDT Prism Inspector followed up with pt's mother to see if she would benefit from pastoral care support. Shira, pt's mother, communicated that she needed to call her daughter and did not need pastoral care visit at this time. Prism Inspector encouraged her to let her know if [...] Fraga MD - 02/20/2021 6:40 AM CDT [facility] Trauma ICU Progress Note Admit: 02/15/2021 [...] 3146.8 [I.V.:3096.8] Out: 4060 [Urine:2125; Drains:1935] Date 02/19/21 07 - 02/20/21 0659 02/20/21699 - 02/21/21 0659 Shift 2573-2883 0259-2193 24 Hour Total 5464-3091 7455-4376 24 Hour Total INTAKE I.V.(mL/kg/hr) 558.1(0.3) 2538.7 [...] Labs: CBC Recent Labs Component Name 02/19/21 2336 02/18/21 2303 02/18/21 0004 WBC 13.2* 11.9* 16.3* HGB 13.8 13.1 13.1 HCT 42.3 40.4 40.9 PLTCOUNT 371 325 292 BMP Recent Labs Component Name 02/19/21 2336 02/18/21 2303 02/18/21 0004 POTASSIUM 4.3 3.9 4.2 CO2 25 [...] is normal. Dictated by Rico Sawant DO (doctor of radiology). I, Dr. OSWALDO CLEMONS have personally reviewed [...] Report dictated by Simone Alexander MD, PhD (doctor of radiology). I, Dr. CHOCO JIN MD have personally [...] Report dictated by Simone Alexander MD, PhD (doctor of radiology). I, Dr. NENA CLEMENTE have personally reviewed [...] the diaphragm with the terminus outside the szpuc-tt-andg. *Bilateral apically oriented thoracostomy tubes are reidentified. [...] on 02/17/2021. Dictated by Rico Sawant DO (doctor of radiology). IDr. OSWALDO have personally reviewed and interpreted [...] mucosal disease. Dictated by Uyen Garcia MD (doctor of radiology). Dr. JUNE Yao have personally reviewed and [...] courses to the stomach out of the dkfhl-aq-tuxf. Chest wall and lower neck subcutaneous emphysema is decreased from prior study. Pneumomediastinum is decreased from prior study. Mild left basilar atelectasis is unchanged. Pleural effusion may contribute to opacity. There is no pneumothorax. The cardiomediastinal silhouette is partially obscured. Dictated by Alverto Ames MD (doctor of radiology). Dr. EULA Yao have personally reviewed and [...] findings above. Dictated by Rico Sawant DO (doctor of radiology). Dr. EULA Yao have personally reviewed and [...] the diaphragm, with its tip outside the ffapp-xu-ljme. Linear airspace opacities are seen in the right upper and mid lung. Findings may be related to compressive atelectasis or pulmonary contusion in the post traumatic setting. There are linear bibasilar opacities, likely representing atelectasis or aspiration in the posttraumatic/post intubated setting. There is no left pleural effusion. No pneumothorax. The cardiomediastinal silhouette is normal. Dictated by Phan Brothers MD (doctor of radiology). Dr. EULA Yao have personally reviewed and [...] 4:32 AM. Dictated by Arlen Abbott MD (doctor of radiology). Najma, Dr. EULA GONZALEZ have personally reviewed [...] is intact. Dictated by Phan Brothers MD (doctor of radiology). Najma, Dr. EULA GONZALEZ have personally reviewed [...] obtained 1cm beyondend of ETT. Dwayne Licea, STONE BREAKER * Jaime Camacho MD - 02/19/2021 7:38 AM CDT Pt s/p exploratory laparotomy for trauma, left open, due for reexploraion today. * Sonali Fraga MD - 02/19/2021 6:57 AM CDT [facility] Trauma ICU Progress Note Admit: 02/15/2021 [...] Date 02/18/21699 - 02/19/2165802/19/21699 - 02/20/21658 Shift 7517-3617 2001-9363 24 Hour Total 7792-9783 9320-2799 24 Hour Total INTAKE I.V.(mL/kg/hr) 1339.2(0.7) 1989.3 [...] mid thoracic trachea, 4.5 cm above the maay. *An NG tube extends to the stomach. [...] Report dictated by Simone Alexander MD, PhD (doctor of radiology). I, Dr. CHOCO JIN MD have personally [...] Report dictated by Simone Alexander MD, PhD (doctor of radiology). IDr. NENA have personally reviewed and interpreted [...] the diaphragm with the terminus outside the avcmp-hb-xzce. *Bilateral apically oriented thoracostomy tubes are reidentified. [...] on 02/17/2021. Dictated by Rico Sawant DO (doctor of radiology). Dr. OSWALDO Yao have personally reviewed and [...] mucosal disease. Dictated by Uyen Garcia MD (doctor of radiology). Dr. JUNE Yao have personally reviewed and [...] courses to the stomach out of the pdxwg-kg-gbmi. Chest wall and lower neck subcutaneous emphysema is decreased from prior study. Pneumomediastinum is decreased from prior study. Mild left basilar atelectasis is unchanged. Pleural effusion may contribute to opacity. There is no pneumothorax. The cardiomediastinal silhouette is partially obscured. Dictated by Alverto Ames MD (doctor of radiology). Dr. EULA Yao have personally reviewed and [...] findings above. Dictated by Rico Sawant DO (doctor of radiology). Dr. EULA Yao have personally reviewed and [...] the diaphragm, with its tip outside the jwhoc-dz-gryn. Linear airspace opacities are seen in the right upper and mid lung. Findings may be related to compressive atelectasis or pulmonary contusion in the post traumatic setting. There are linear bibasilar opacities, likely representing atelectasis or aspiration in the posttraumatic/post intubated setting. There is no left pleural effusion. No pneumothorax. The cardiomediastinal silhouette is normal. Dictated by Phan Brothers MD (doctor of radiology). Dr. EULA Yao have personally reviewed and [...] 4:32 AM. Dictated by Arlen Abbott MD (doctor of radiology). Dr. EULA Yao have personally reviewed and [...] is intact. Dictated by Phan Brothers MD (doctor of radiology). Dr. EULA Yao have personally reviewed and [...] Sonia Donato - 02/18/2021 2:00 PM CDT Prism Inspector met with pt's aunt who was at bedside and provided empathetic support. She communicated how her and her family were still holding out for pt's full recovery and reflected on childhood memories of pt. Prism Inspector needed to attend to another pt, but [...] Fraga MD - 02/18/2021 7:33 AM CDT [facility] Trauma ICU Progress Note Admit: 02/15/2021 [...] 0-300 mcg/hr, Last Rate: 150 mcg/hr (02/17/21 257) lactated ringers, , Last Rate: 125 mL/hr [...] Date 02/17/21699 - 02/18/2165802/18/21699 - 02/19/21658 Shift 7081-2698 2243-8575 24 Hour Total 6208-9109 7629-1308 24 Hour Total INTAKE I.V.(mL/kg/hr) 1973(1.4) 3198.7(1.7) [...] CBC Recent Labs Component Name 02/18/21 0004 02/17/213 02/15/212233 WBC 16.3* 21.4* 24.3* HGB 13.1 [...] the diaphragm with the terminus outside the caggf-oj-vvjg. *Bilateral apically oriented thoracostomy tubes are reidentified. [...] on 02/17/2021. Dictated by Rico Sawant DO (doctor of radiology). I, Dr. OSWALDO CLEMONS have personally reviewed [...] mucosal disease. Dictated by Uyen Garcia MD (doctor of radiology). I, Dr. JUNE MADRID have personally reviewed [...] courses to the stomach out of the jcjxg-dx-irbe. Chest wall and lower neck subcutaneous emphysema is decreased from prior study. Pneumomediastinum is decreased from prior study. Mild left basilar atelectasis is unchanged. Pleural effusion may contribute to opacity. There is no pneumothorax. The cardiomediastinal silhouette is partially obscured. Dictated by Alverto Ames MD (doctor of radiology). Dr. EULA Yao have personally reviewed and [...] findings above. Dictated by Rico Sawant DO (doctor of radiology). Dr. EULA Yao have personally reviewed and [...] the diaphragm, with its tip outside the frqel-fz-uaht. Linear airspace opacities are seen in the right upper and mid lung. Findings may be related to compressive atelectasis or pulmonary contusion in the post traumatic setting. There are linear bibasilar opacities, likely representing atelectasis or aspiration in the posttraumatic/post intubated setting. There is no left pleural effusion. No pneumothorax. The cardiomediastinal silhouette is normal. Dictated by Phan Brothers MD (doctor of radiology). Dr. EULA Yao have personally reviewed and [...] 4:32 AM. Dictated by Arlen Abbott MD (doctor of radiology). Dr. EULA Yao have personally reviewed and [...] is intact. Dictated by Phan Brothers MD (doctor of radiology). Dr. EULA Yao have personally reviewed and [...] 1:55 PM Lamberto Moore MD * Kaylee Colunga, [facility] - 02/18/2021 4:05 AM CDT Problem: Mechanical [...] Fraga MD - 02/17/2021 5:54 AM CDT [facility] Trauma ICU Progress Note Admit: 02/15/2021 [...] 02/16/21699 - 02/17/2165802/17/21699 - 02/18/21 0659 Shift 7700-4625 3812-4850 24 Hour Total 2720-3755 8771-9792 24 Hour Total INTAKE I.V.(mL/kg/hr) 1306.4(0.9) 1506 [...] 315 358 BMP Recent Labs Component Name 02/17/21 00102/15/21223302/15/21 1040 POTASSIUM 4.1 4.0 3.8 CO2 27 26 26 BUN 9 9 10 CREATININE 0.82 0.90 1.02 GLUCOSE 118* 118* 171* CALCIUM 9.1 9.1 9.6 PHOS 3.5 4.0 2.4* LFTs Recent Labs Component Name 02/15/21 1040 AST 96* ALT 78* ALKPHOS 97 Coags Recent Labs Component Name 02/17/21 0013 02/15/21223302/15/21 0642 02/15/21 0308 PT 14.9* 14.6 13.8 [...] courses to the stomach out of the atvkq-ug-dxtb. Chest wall and lower neck subcutaneous emphysema is decreased from prior study. Pneumomediastinum is decreased from prior study. Mild left basilar atelectasis is unchanged. Pleural effusion may contribute to opacity. There is no pneumothorax. The cardiomediastinal silhouette is partially obscured. Dictated by Alverto Ames MD (doctor of radiology). I, Dr. EULA GONZALEZ have personally reviewed [...] findings above. Dictated by Rico Sawant DO (doctor of radiology). Dr. EULA Yao have personally reviewed and [...] the diaphragm, with its tip outside the lbfrd-wn-dqef. Linear airspace opacities are seen in the right upper and mid lung. Findings may be related to compressive atelectasis or pulmonary contusion in the post traumatic setting. There are linear bibasilar opacities, likely representing atelectasis or aspiration in the posttraumatic/post intubated setting. There is no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 NENA CLEMENTE on 03/09/2021 11:30 AM . Fredy Felipe MD DIAGNOSTIC IMAGING O RDERABLES * (ABNORMAL) DIFFERENTIAL MANUAL (03/07/2021 11:57 PM CDT) WBC (corrected for NRBC) 22.8 10? 3 /uL 03/08/2021 2:26 AM CDT [facility] Total Cell Count 100 03/08/2021 2:26 AM CDT [facility] Neutrophils Absolute Manual 18.24(H) 1.60 [...] 03/07/2021 11:57 PM CDT 03/08/2021 12:[address] [facility] Fredy Felipe MD LAB - HEMATOLOGY ORD ERABLES [facility] [address] [place] [address], [facility] [phone] * (ABNORMAL) VANCOMYCIN LEVEL TROUGH (03/07/2021 11:57 PM CDT) Pathologist [facility] Vancomycin Trough 22.7(H) 10.0 - 20.0 ug/mL 03/08/2021 12:47 AM [facility] Blood BLOOD SPECIMEN / Unknown Venipuncture / Unknown 03/07/2021 11:57 PM CDT 03/08/2021 12:23 AM CDT [facility] - 03/08/2021 12:47 AM CDT See institution protocol. Fredy Felipe MD LAB - CHEMISTRY JOSE ENRIQUE VELA [facility] Organization Address City/State/ZIP Co de Phone Number [facility] [address] [place] [address], [facility] [phone] * (ABNORMAL) CBC W AUTO DIFFERENTIAL (03/07/2021 11:57 PM CDT) [facility] WBC 22.8(H) 3.5 - 10.5 10? 3 [...] Felipe MD LAB - HEMATOLOGY ORD ERABLES [facility] [address] [place] [address], [facility] [phone] * (ABNORMAL) BASIC METABOLIC PANEL (CALCIUM TOTAL) [...] 03/08/2021 12:49 AM [facility] BUN/Creatinine Ratio 22 7 - 23 03/08/2021 12:49 AM [facility] Osmolality Calculated [...] Organization Address City/State/ZIP Co de Phone Number [facility] [address] [place] [address], [facility] [phone] * (ABNORMAL) BLOOD GASES ART + COOX [...] within clinical context mg/dL 03/08/2021 12:17 AM [facility] Hemoglobin by COOX 10.4(L) 12.0 - 17.6 g/dL 03/08/2021 12:17 AM [facility] O2 Saturation Arterial 100 90 - 100 % 03/08/2021 12:17 AM [facility] FI O2 Arterial 21.0 % 03/08/2021 12:17 AM [facility] Blood, arterial ARTERIAL BLOOD SPECIMEN / Unknown Arterial Puncture / Unknown 03/07/2021 11:57 PM CDT 03/08/2021 12:11 AM CDT Narrative [facility] - 03/08/2021 12:17 AM CDT Carboxyhemoglobin Normal Concentration: Non-smokers: 0-2%; Smokers: 0-9%; Toxic: >20% Fredy Felipe MD LAB - BLOOD GASES OR DERABLES Performing Organization Address [facility] Co de Phone Number [address] [address], [facility] [phone] * (ABNORMAL) PT-INR [facility] (03/07/2021 11:57 PM CDT) PT 16.5(H) 12.1 - 14.8 Seconds 03/08/2021 12:37 AM [facility] INR 1.4 See Comment 03/08/2021 12:37 [...] - COAGULATION OR DERABLES Performing Organization Address [facility] Co de Phone Number [address] [place] [address], [place] [phone] * PHOSPHORUS BLOOD (03/07/2021 11:57 PM CDT) Phosphorus 3.0 2.8 - 5.1 mg/dL 03/08/2021 12:50 AM CDT [facility] Blood BLOOD SPECIMEN / Unknown Venipuncture / Unknown 03/07/2021 11:57 PM CDT 03/08/2021 12:23 AM CDT Fredy Felipe MD LAB - CHEMISTRY JOSE ENRIQUE VELA [address] [address], [place] [phone] * MAGNESIUM BLOOD (03/07/2021 11:57 PM CDT) Magnesium 2.1 1.6 - 2.6 mg/dL 03/08/2021 12:50 AM CDT [facility] Blood BLOOD SPECIMEN / Unknown Venipuncture / Unknown 03/07/2021 11:57 PM CDT 03/08/2021 12:23 AM CDT Fredy Felipe MD LAB - CHEMISTRY JOSE ENRIQUE VELA [address] [address], [place] [phone] * (ABNORMAL) CALCIUM IONIZED WHOLE BLOOD (03/07/2021 11:57 PM CDT) Calcium Ionized 1.15 mmol/L 03/08/2021 12:17 AM CDT [facility] pH 7.49(H) 7.35 - 7.45 pH 03/08/2021 12:17 AM CDT [facility] Ionized Calcium pH Adjusted 1.19 1.19 - 1.34 mmol/L 03/08/2021 12:17 AM CDT [facility] Blood BLOOD SPECIMEN / Unknown Venipuncture / Unknown 03/07/2021 11:57 PM CDT 03/08/2021 12:11 AM CDT Fredy Felipe MD LAB - CHEMISTRY JOSE ENRIQUE Pena Organization Address City/State/ZIP Co de Phone Number [facility] [address] [place] [address], [facility] [phone] * XR CHEST 1VW PORTABLE (03/07/2021 4:51 AM CDT) Anatomical Region Laterality Modality Chest Radiographic Sera ging 03/07/2021 10:2 2 AM CDT Impressions 03/07/2021 2:51 PM CDT IMPRESSION: 1.Mild right midlung and lower lung atelectasis. Report drafted by Keo Hernandez M.D. (resident) Dr. NAOMY Yao MD, [facility] have personally reviewed and interpreted this [...] by Keo Hernandez M.D. (resident) I, Dr. NAOMY LAZO MD, [facility] have personally reviewedand interpreted this examination/study. This report was electronically signed by NAOMY LAZO MD, CR on 03/07/2021 2:51 PM . Fredy Felipe MD DIAGNOSTIC IMAGING O RDERABLES * (ABNORMAL) CULTURE ANAEROBE (03/07/2021 2:41 AM CDT) Culture Heavy Prevotella bivia(A) [place] 03/11/2021 9:14 AM CDT [facility] Comment:Beta-lactamase posit elvira Microbiology ABDOMINAL ABSCESS / Unknown Collection / Unknown 03/07/2021 2:41 AM CDT 03/07/2021 2:45 AM CDT Dino Hudson PA-C LAB - MICROBIOLOG Y ORDERABLES Performing Organization Address [facility] Co de Phone Number [facility] [address] [place] [phone] * CULTURE FUNGUS OTHER+FUNGUS SMEAR (03/07/2021 2:41 AM CDT) Culture No fungus isolated [place] 03/31/2021 9:21 AM [facility] Fungus Stain No yeast or hyphae seen 03/31/2021 9:21 AM [facility] Microbiology ABDOMINAL ABSCESS / Unknown Collection / Unknown 03/07/2021 2:41 AM CDT 03/07/2021 2:45 AM CDT Dino Hudson PA-C LAB - MICROBIOLOG Y ORDERABLES Performing Organization Address [facility] de Phone Number [facility] [address] [place] [address], [facility] [phone] * (ABNORMAL) CULTURE WOUND+GRAM STAIN (03/07/2021 2:41 AM CDT) Culture Heavy Staphylococcus lugdunensis(A) [place] 03/10/2021 7:16 AM CDT [facility] Culture Heavy Klebsiella (formerly Enterobacter) aerogenes(A) [place] 03/10/2021 7:16 AM [facility] Culture Heavy Staphylococcus epidermidis(A) 03/10/2021 7:16 AM CDT [facility] Gram Stain Light Polymorphonuclear cells 03/10/2021 7:16 AM [facility] Gram Stain Light Gram-positive cocci in clusters 03/10/2021 7:16 AM [facility] Gram Stain Moderate Gram-positive cocci pairs and chains 03/10/2021 7:16 AM [facility] Microbiology ABDOMINAL ABSCESS / Unknown Collection / Unknown 03/07/2021 2:41 AM CDT 03/07/2021 2:45 AM CDT [facility] - 03/10/2021 7:16 AM CDT [...] PA-C LAB - MICROBIOLOG Y ORDERABLES [facility] [address] [place] [address], [facility] [phone] * (ABNORMAL) BLOOD GASES ART + COOX PANEL (03/07/2021 12:[address] [facility]) pH Arterial 7.51(H) 7.35 - 7.45 pH [...] - 17.6 g/dL 03/07/2021 12:41 AM CDT [facility] O2 Saturation Arterial 100 90 - 100 % 03/07/2021 12:41 AM CDT [facility] FI O2 Arterial 40.0 % 03/07/2021 12:41 AM CDT [facility] Blood, arterial ARTERIAL BLOOD SPECIMEN / Unknown Arterial Puncture / Unknown 03/07/2021 12:29 AM CDT 03/07/2021 12:38 AM CDT Narrative [facility] - 03/07/2021 12:41 AM CDT Carboxyhemoglobin Normal Concentration: Non-smokers: 0-2%; Smokers: 0-9%; Toxic: >20% Fredy Felipe MD LAB - BLOOD GASES OR DERABLES Performing Organization Address City/[facility]/ZIP Co de Phone Number [address] [address], [place] [phone] * (ABNORMAL) CALCIUM IONIZED WHOLE BLOOD (03/07/2021 12:29 AM CDT) Calcium Ionized 1.20 mmol/L 03/07/2021 12:41 AM CDT [facility] pH 7.51(H) 7.35 - 7.45 pH 03/07/2021 12:41 AM CDT [facility] Ionized Calcium pH Adjusted 1.26 1.19 - 1.34 mmol/L 03/07/2021 12:41 AM CDT [facility] Blood BLOOD SPECIMEN / Unknown Venipuncture / Unknown 03/07/2021 12:29 AM CDT 03/07/2021 12:38 AM CDT Fredy Felipe MD LAB - CHEMISTRY ORDE RABLES [address] [address], [place] [phone] * (ABNORMAL) HEPATIC FUNCTION PANEL (03/06/2021 11:52 [...] VELA [facility] Organization Address [facility] de Phone Number [address] [address], [facility] [phone] * (ABNORMAL) DIFFERENTIAL MANUAL (03/06/2021 11:52 PM [...] Felipe MD LAB - HEMATOLOGY ORD ERABLES [facility] [address] [place] [address], [facility] [phone] * (ABNORMAL) CBC W AUTO DIFFERENTIAL (03/06/2021 [...] Felipe MD LAB - HEMATOLOGY ORD ERABLES [facility] [address] [place] [address], [facility] [phone] * (ABNORMAL) BASIC METABOLIC PANEL (CALCIUM TOTAL) [...] Organization Address City/State/ZIP Co de Phone Number [facility] [address] [place] [address] [phone] * (ABNORMAL) PT-INR [facility] (03/06/2021 11:52 PM CDT) PT 15.2(H) 12.1 - 14.8 Seconds 03/07/2021 12:08 AM CDT [facility] INR 1.2 See Comment 03/07/2021 12:08 AM CDT [facility] Comment:The suggested therap eutic range for standard coumadin (warfarin) therapy is an INR of 2.0-3.0. For high-risk patients (Mechanical Mitral Valve Prosthesis, etc.), the suggested prophylactic therapeutic range is an INR of 2.5-3.5. Blood BLOOD SPECIMEN / Unknown Venipuncture / Unknown 03/06/2021 11:52 PM CDT 03/06/2021 11:56 PM CDT Fredy Felipe MD LAB - COAGULATION OR DERABLES Performing Organization Address City/[facility]/ZIP Co de Phone Number [address] [address], [facility] [phone] * PHOSPHORUS BLOOD (03/06/2021 11:52 PM CDT) Phosphorus 3.1 2.8 - 5.1 mg/dL 03/07/2021 12:18 AM CDT [facility] Blood BLOOD SPECIMEN / Unknown Venipuncture / Unknown 03/06/2021 11:52 PM CDT 03/06/2021 11:56 PM CDT Fredy Felipe MD LAB - CHEMISTRY ORDE RABLES [address] [address], [facility] [phone] * MAGNESIUM BLOOD (03/06/2021 11:52 PM CDT) Magnesium 2.3 1.6 - 2.6 mg/dL 03/07/2021 12:18 AM CDT [facility] Blood BLOOD SPECIMEN / Unknown Venipuncture / Unknown 03/06/2021 11:52 PM CDT 03/06/2021 11:56 PM CDT Fredy Felipe MD LAB - CHEMISTRY JOSE ENRIQUE VELA [facility] Organization Address City/State/ZIP Co de Phone Number [facility] [address] [place] [address], [facility] [phone] * CT ABDOMEN PELVIS W CONTRAST (03/06/2021 [...] I, Dr. NAOMY LAZO MD, [facility] have personally reviewed and interpreted this [...] Yellow Straw, Yellow 03/06/2021 5:45 PM CDT [facility] Clarity UA Slt Cloudy(A) Clear 03/06/2021 5:45 PM T [facility] Specific [place] UA 1.020 1.005 - 1.030 03/06/2021 5:45 PM CDT [facility] pH UA 6.0 5.0 - 8.0 pH 03/06/2021 5:45 PM CDT [facility] Protein UA 2+(A) Negative 03/06/2021 5:45 PM CDT [facility] Glucose UA Negative Negative 03/06/2021 5:45 PM CDT [facility] Ketone UA Negative Negative 03/06/2021 5:45 PM CDT [facility] Bilirubin UA Negative Negative 03/06/2021 5:45 PM CDT [facility] Blood UA 2+(A) Negative 03/06/2021 5:45 PM CDT [facility] Nitrite UA Negative Negative 03/06/2021 5:45 PM T [facility] Leukocyte Esterase Trace(A) Negative 03/06/2021 5:45 PM CDT [facility] Urobilinogen UA Negative Negative mg/dL 03/06/2021 5:45 PM CDT [facility] RBC UA 11-20(A) None Seen, 0-2, 3-5 /HPF 03/06/2021 5:[facility] WBC UA 21-50(A) None Seen, 0-5 /HPF 03/06/2021 5:45 PM CDT [facility] Bacteria UA Trace(A) None /HPF 03/06/2021 5:45 PM CDT [facility] Yeast Budding UA Few(A) None /HPF 03/06/20 5:45 PM CDT [facility] Squamous Epithelial Cells UA 0-2 None Seen, 0-2, 3-5 /HPF 03/06/2021 5:45 PM CDT [facility] Mucus UA 1+ /LPF 03/06/2021 5:45 PM CDT [facility] RBC Casts UA 0-2(A) None Seen /LPF 03/06/2021 5:45 PM CDT [facility] Granular Casts UA 3-5(A) None Seen /LPF 03/06/2021 5:45 PM CDT [facility] Urine URINE SPECIMEN OBTAINED VIA [facility] / Unknown Collection / Unknown 03/06/2021 5:11 PM CDT 03/06/2021 5:19 PM CDT Narrative [facility] - 03/06/2021 5:45 PM CDT Fredy Felipe MD LAB - URINALYSIS ORD ERABLES [facility] [address] [place] [address], [facility] [phone] * XR CHEST 1VW PORTABLE (03/06/2021 4:07 [...] 10? 3 /uL 03/06/2021 2:40 AM CDT [facility] Total Cell Count 100 03/06/2021 2:40 AM [facility] Neutrophils Absolute Manual 23.18(H) 1.60 - 7.00 10? 3 /uL 03/06/2021 2:40 AM T [facility] Comment:(BANDS+SEGS) x WBC = NEUT # (ANC) Lymphocyte Absolute Manual 0.50(L) 1.10 - 3.90 10? 3 /uL 03/06/2021 2:40 AM CDT [facility] Monocytes Absolute Manual 1.01 0.26 - 1.07 10? 3 /uL 03/06/2021 2:40 AM [facility] Eosinophils Absolute Manual 0.50(H) 0.00 - 0.47 10? 3 /uL 03/06/2021 2:40 AM T [facility] Neutrophil % Manual 92(H) 35 - 70 % 03/06/2021 2:40 AM [facility] Lymphocyte % Manual 2(L) 20 - 43 [...] Felipe MD LAB - HEMATOLOGY ORD ERABLES [facility] [address] [place] [id number], [facility] [phone] * (ABNORMAL) CBC W AUTO DIFFERENTIAL (03/06/2021 [...] 10? 3 /uL 03/06/2021 1:36 AM CDT [facility] RDW-SD 45.5 36.0 - 50.0 fL 03/06/2021 1:36 AM CDT [facility] RDW-CV 14.0 11.2 - 14.8 % 03/06/2021 1:36 AM CDT [facility] MPV 9.0(L) 9.4 - 12.9 fL 03/06/2021 1:36 AM CDT [facility] nRBC Absolute 0.00 0 10? 3 /uL 03/06/2021 1:36 AM CDT [facility] nRBC Auto 0.0 0 /100 WBC 03/06/2021 1:36 AM CDT [facility] Blood BLOOD SPECIMEN / Unknown Venipuncture / Unknown 03/06/2021 1:01 AM CDT 03/06/2021 1:16 AM CDT Fredy Felipe MD LAB - HEMATOLOGY ORD ERABLES Performing Organization Address City/[facility]/ZIP Co de Phone Number [address] [address], [facility] [phone] * (ABNORMAL) TRIGLYCERIDES BLOOD (03/06/2021 12:06 AM CDT) Triglycerides 263(H) <150 mg/dL 03/06/2021 12:50 AM CDT [facility] Comment: ATP III Classification of Triglycerides: ?<150 mg/dL: ??Normal ? 150 - 199 mg/dL: ??Borderline High ? 200 - 400 mg/dL: ??High ?>500 mg/dL: ??Very High Blood BLOOD SPECIMEN / Unknown Venipuncture / Unknown 03/06/2021 12:06 AM CDT 03/06/2021 12:25 AM CDT Kelvin Stewart MD LAB - CHEMISTRY ORD ERABLES [address] [address], [facility] [phone] * (ABNORMAL) BASIC METABOLIC PANEL (CALCIUM TOTAL) (03/06/2021 12:[address] [facility]) BUN 31(H) 7 - 26 mg/dL 03/06/2021 [...] 03/06/2021 12:06 AM CDT 03/06/2021 12:[address] [facility] Fredy Felipe MD LAB - CHEMISTRY JOSE ENRIQUE Pena Organization Address City/State/ZIP Co de Phone Number [facility] [address] [place] [address], [facility] [phone] * (ABNORMAL) BLOOD GASES ART + COOX PANEL (03/06/2021 12:[address] [facility] [facility]) pH Arterial 7.42 7.35 - 7.45 pH [...] 03/06/2021 12:06 AM T 03/06/2021 12:22 AM [facility] - 03/06/2021 12:[address] [facility] Carboxyhemoglobin Normal Concentration: Non-smokers: 0-2%; Smokers: 0-9%; Toxic: >20% Fredy Felipe MD LAB - BLOOD GASES OR DERABLES Performing Organization Address City/[facility]/ZIP Co de Phone Number [address] [address], [facility] [phone] * (ABNORMAL) PT-INR [facility] (03/06/2021 12:06 AM CDT) PT 15.7(H) 12.1 - 14.8 Seconds 03/06/2021 12:43 AM CDT [facility] INR 1.3 See Comment 03/06/2021 12:43 AM CDT [facility] Comment:The suggested therap eutic range for standard coumadin (warfarin) therapy is an INR of 2.0-3.0. For high-risk patients (Mechanical Mitral Valve Prosthesis, etc.), the suggested prophylactic therapeutic range is an INR of 2.5-3.5. Blood BLOOD SPECIMEN / Unknown Venipuncture / Unknown 03/06/2021 12:06 AM CDT 03/06/2021 12:22 AM CDT Fredy Felipe MD LAB - COAGULATION OR DERABLES Performing Organization Address [facility]/ZIP Co de Phone Number [address] [address], [facility] [phone] * PHOSPHORUS BLOOD (03/06/2021 12:06 AM CDT) Phosphorus 3.3 2.8 - 5.1 mg/dL 03/06/2021 12:50 AM CDT [facility] Blood BLOOD SPECIMEN / Unknown Venipuncture / Unknown 03/06/2021 12:06 AM CDT 03/06/2021 12:25 AM CDT Fredy Felipe MD LAB - CHEMISTRY JOSE ENRIQUE VELA [facility] [address] [place] [address], [facility] [phone] * MAGNESIUM BLOOD (03/06/2021 12:06 AM CDT) Magnesium 2.1 1.6 - 2.6 mg/dL 03/06/2021 12:50 AM CDT [facility] Blood BLOOD SPECIMEN / Unknown Venipuncture / Unknown 03/06/2021 12:06 AM CDT 03/06/2021 12:25 AM CDT Fredy Felipe MD LAB - CHEMISTRY JOSE ENRIQUE VELA Performing Organization Address [facility] Co de Phone Number [address] [address], [facility] [phone] * (ABNORMAL) CALCIUM IONIZED WHOLE BLOOD (03/06/2021 12:06 AM CDT) Pathologist [facility] Calcium Ionized 1.12 mmol/L 03/06/2021 12:40 AM CDT [facility] pH 7.43 7.35 - 7.45 pH 03/06/2021 12:40 AM CDT [facility] Ionized Calcium pH Adjusted 1.13(L) 1.19 - 1.34 mmol/L 03/06/2021 12:40 AM CDT [facility] Blood BLOOD SPECIMEN / Unknown Venipuncture / Unknown 03/06/2021 12:06 AM CDT 03/06/2021 12:22 AM CDT Fredy Felipe MD LAB - CHEMISTRY JOSE ENRIQUE VELA Performing Organization Address [facility] de Phone Number [address] [address], [facility] [phone] * XR CHEST 1VW PORTABLE (03/05/2021 4:54 [...] 3 /uL 03/05/2021 12:32 AM [facility] Total Cell Count 100 03/05/2021 12:32 AM [facility] Neutrophils Absolute Manual 19.47(H) 1.60 - 7.00 10? 3 /uL 03/05/2021 12:32 AM T [facility] Comment:(BANDS+SEGS) x WBC = NEUT # (ANC) Lymphocyte Absolute Manual 1.15 1.10 - 3.90 10? 3 /uL 03/05/2021 12:32 AM [facility] Monocytes Absolute Manual 1.83(H) 0.26 - 1.07 10? 3 /uL 03/05/2021 12:32 AM T [facility] Eosinophils Absolute Manual 0.46 [...] Felipe MD LAB - HEMATOLOGY ORD ERABLES [facility] [address] [place] [address] [phone] * (ABNORMAL) CBC W AUTO DIFFERENTIAL (03/04/2021 [...] Felipe MD LAB - HEMATOLOGY ORD ERABLES [facility] [address] [place] [address], [facility] [phone] * (ABNORMAL) BASIC METABOLIC PANEL (CALCIUM TOTAL) [...] Organization Address City/State/ZIP Co de Phone Number [facility] [address] [place] [address], [facility] [phone] * (ABNORMAL) BLOOD GASES ART + COOX [...] 03/04/2021 11:48 PM CDT 03/04/2021 11:53 PM [facility] - 03/04/2021 11:[address] [facility] Carboxyhemoglobin Normal Concentration: Non-smokers: 0-2%; Smokers: 0-9%; Toxic: >20% Fredy Felipe MD LAB - BLOOD GASES OR DERABLES Performing Organization Address [facility]/State/[facility] Co de Phone Number [facility] [address] [place] [phone] [phone] * (ABNORMAL) PT-INR [facility] (03/04/2021 11:48 PM CDT) PT 15.1(H) [...] - COAGULATION OR DERABLES Performing Organization Address City/[facility]/ZIP Co de Phone Number [address] [address], [facility] [phone] * PHOSPHORUS BLOOD (03/04/2021 11:48 PM CDT) Phosphorus 3.2 2.8 - 5.1 mg/dL 03/05/2021 12:16 AM CDT [facility] Blood BLOOD SPECIMEN / Unknown Venipuncture / Unknown 03/04/2021 11:48 PM CDT 03/04/2021 11:53 PM CDT Fredy Felipe MD LAB - CHEMISTRY JOSE ENRIQUE VELA Performing Organization Address [facility] Co de Phone Number [address] [address], [facility] [phone] * MAGNESIUM BLOOD (03/04/2021 11:48 PM CDT) Magnesium 2.2 1.6 - 2.6 mg/dL 03/05/2021 12:16 AM CDT [facility] Blood BLOOD SPECIMEN / Unknown Venipuncture / Unknown 03/04/2021 11:48 PM CDT 03/04/2021 11:53 PM CDT Fredy Felipe MD LAB - CHEMISTRY JOSE ENRIQUE VELA Performing Organization Address [facility] Co de Phone Number [address] [address], [facility] [phone] * (ABNORMAL) CALCIUM IONIZED WHOLE BLOOD (03/04/2021 11:48 PM CDT) Calcium Ionized 1.22 mmol/L 03/04/2021 11:57 PM CDT [facility] pH 7.47(H) 7.35 - 7.45 pH 03/04/2021 11:57 PM CDT [facility] Ionized Calcium pH Adjusted 1.26 1.19 - 1.34 mmol/L 03/04/2021 11:57 PM CDT [facility] Blood BLOOD SPECIMEN / Unknown Venipuncture / Unknown 03/04/2021 11:48 PM CDT 03/04/2021 11:53 PM CDT Fredy Felipe MD LAB - CHEMISTRY JOSE ENRIQUE VELA [facility] [address] [place] [address], [facility] [phone] * CULTURE MRSA (03/04/2021 12:43 PM CDT) Culture Negative for methicillin-resist ant Staphylococcus aureus (MRSA) [place] 03/05/2021 8:38 PM CDT [facility] Microbiology SPECIMEN FROM NASAL FOSSAE / Unknown Collection / Unknown 03/04/2021 12:43 PM CDT 03/04/2021 12:52 PM CDT Kelvin Stewart MD LAB - MICROBIOLOGY ORDERABLES [facility] [address] [place] [address], [facility] [phone] * CULTURE SPUTUM+GRAM STAIN (03/04/2021 5:47 AM CDT) Culture Light normal oropharyngeal zi [place]A 03/06/2021 6:42 AM CDT [facility] Gram Stain <10 per low power field Squamous epithelial cells 03/06/2021 6:42 AM CDT [facility] Gram Stain >= 25 per low power field Polymorphonuclear cells 03/06/2021 6:42 AM CDT [facility] Gram Stain Rare Gram-positive cocci 03/06/2021 6:42 AM CDT [facility] Microbiology SPUTUM / Unknown Collection / Unknown 03/04/2021 5:47 AM CDT 03/04/2021 5:50 AM CDT Fredy Felipe MD LAB - MICROBIOLOGY O RDERABLES [facility] [address] [place], [place] [address], [facility] [phone] * XR CHEST 1VW PORTABLE (03/04/2021 5:27 [...] is normal. Dictated by Alex Verdugo MD (doctor of radiology). I, Dr. OSWALDO CLEMONS have personally reviewed [...] is normal. Dictated by Alex Verdugo MD (doctor of radiology). I, Dr. OSWALDO CLEMONS have personally reviewed [...] 3 /uL 03/04/2021 1:46 AM [facility] Monocytes Absolute Manual 1.02 0.26 - 1.07 10? 3 /uL 03/04/2021 1:46 AM [facility] Eosinophils Absolute Manual 0.61(H) 0.00 - 0.47 10? 3 /uL 03/04/2021 1:46 AM [facility] Neutrophil % Manual 87(H) 35 - 70 % 03/04/2021 1:46 AM [facility] Lymphocyte % Manual 4(L) 20 - 43 % 03/04/2021 1:46 AM [facility] Monocytes % Manual 5 5 - 13 % 03/04/2021 1:46 AM [facility] Eosinophils % Manual 3 0 - [...] Felipe MD LAB - HEMATOLOGY ORD ERABLES [facility] [address] [place] [address], [facility] [phone] * (ABNORMAL) CBC W AUTO DIFFERENTIAL (03/04/2021 [...] Felipe MD LAB - HEMATOLOGY ORD ERABLES [facility] [address] [place] [address], [facility] [phone] * (ABNORMAL) BASIC METABOLIC PANEL (CALCIUM TOTAL) [...] Organization Address City/State/ZIP Co de Phone Number [facility] [address] [place] [address], [facility] [phone] * (ABNORMAL) BLOOD GASES ART + COOX [...] - 100 % 03/04/2021 1:17 AM CDT [facility] FI O2 Arterial 40.0 % 03/04/2021 1:17 AM CDT [facility] Blood, arterial ARTERIAL BLOOD SPECIMEN / Unknown Arterial Puncture / Unknown 03/04/2021 1:04 AM CDT 03/04/2021 1:15 AM CDT Narrative [facility] - 03/04/2021 1:17 AM CDT Carboxyhemoglobin Normal Concentration: Non-smokers: 0-2%; Smokers: 0-9%; Toxic: >20% Fredy Felipe MD LAB - BLOOD GASES OR DERABLES Performing Organization Address [facility]/ZIP Co de Phone Number [address] [address], [facility] [phone] * (ABNORMAL) PT-INR [facility] (03/04/2021 1:04 AM CDT) PT 15.0(H) 12.1 - 14.8 Seconds 03/04/2021 1:31 AM T [facility] INR 1.2 See Comment 03/04/2021 1:31 AM T [facility] Comment:The suggested therap eutic range for standard coumadin (warfarin) therapy is an INR of 2.0-3.0. For high-risk patients (Mechanical Mitral Valve Prosthesis, etc.), the suggested prophylactic therapeutic range is an INR of 2.5-3.5. Blood BLOOD SPECIMEN / Unknown Venipuncture / Unknown 03/04/2021 1:04 AM CDT 03/04/2021 1:12 AM CDT Fredy Felipe MD LAB - COAGULATION OR DERABLES [facility] [address] [place] [address], [place] [phone] * PHOSPHORUS BLOOD (03/04/2021 1:04 AM CDT) Phosphorus 3.0 2.8 - 5.1 mg/dL 03/04/2021 1:40 AM T [facility] Blood BLOOD SPECIMEN / Unknown Venipuncture / Unknown 03/04/2021 1:04 AM CDT 03/04/2021 1:16 AM CDT Fredy Felipe MD LAB - CHEMISTRY JOSE ENRIQUE VELA Performing Organization Address City/[facility]/ZIP Co de Phone Number [address] [address], [place] [phone] * MAGNESIUM BLOOD (03/04/2021 1:04 AM CDT) Magnesium 2.1 1.6 - 2.6 mg/dL 03/04/2021 1:40 AM CDT [facility] Blood BLOOD SPECIMEN / Unknown Venipuncture / Unknown 03/04/2021 1:04 AM CDT 03/04/2021 1:16 AM CDT Fredy Felipe MD LAB - CHEMISTRY JOSE ENRIQUE VELA Performing Organization Address City/[facility]/ZIP Co de Phone Number [address] [address], [place] [phone] * CALCIUM IONIZED WHOLE BLOOD (03/04/2021 1:04 AM CDT) Calcium Ionized 1.20 mmol/L 03/04/2021 1:19 AM CDT [facility] pH 7.41 7.35 - 7.45 pH 03/04/2021 1:19 AM CDT [facility] Ionized Calcium pH Adjusted 1.20 1.19 - 1.34 mmol/L 03/04/2021 1:19 AM CDT [facility] Blood BLOOD SPECIMEN / Unknown Venipuncture / Unknown 03/04/2021 1:04 AM CDT 03/04/2021 1:15 AM CDT Fredy Felipe MD LAB - CHEMISTRY JOSE ENRIQUE VELA Performing Organization Address City/[facility]/ZIP Co de Phone Number [address] [address], [place] [phone] * CULTURE BLOOD (03/03/2021 8:20 AM CDT) Culture No growth day 5 [place] 03/08/2021 2:00 PM CDT [facility] Blood PERIPHERAL BLOOD / Unknown Venipuncture / Unknown 03/03/2021 8:20 AM CDT 03/03/2021 8:46 AM CDT Fredy Felipe MD LAB - MICROBIOLOGY O RDTERESA Performing Organization Address [facility] Co de Phone Number [facility] [address] [place] [address], [facility] [phone] * CULTURE BLOOD (03/03/2021 8:00 AM CDT) Culture No growth day 5 [place] 03/08/2021 2:00 PM CDT [facility] Blood PERIPHERAL BLOOD / Unknown Venipuncture / Unknown 03/03/2021 8:00 AM CDT 03/03/2021 8:46 AM CDT Fredy Felipe MD LAB - MICROBIOLOGY O RDTERESA Performing Organization Address [facility] Phone Number [facility] [address] [place] [address], [facility] [phone] * XR CHEST 1VW PORTABLE (03/03/2021 4:56 [...] Ivette Fortune DO (resident). IDr. NAOMY MD, FRCR have personally reviewedand interpreted this examination/study. This report was electronically signed by NAOMY LAZO MD, FRCR on 03/03/2021 3:48 PM . Fredy Felipe MD DIAGNOSTIC IMAGING O RDERABLES * (ABNORMAL) DIFFERENTIAL MANUAL (03/02/2021 11:41 PM CDT) WBC (corrected for NRBC) 20.3 10? 3 /uL 03/03/2021 12:26 AM CDT [facility] Total Cell Count 100 03/03/2021 12:26 AM T [facility] Neutrophils Absolute Manual 17.26(H) 1.60 - 7.00 10? 3 /uL 03/03/2021 12:26 AM [facility] Comment:(BANDS+SEGS) x WBC = [...] Felipe MD LAB - HEMATOLOGY ORD ERABLES [facility] [address] [place] [address], [facility] [phone] * (ABNORMAL) TRIGLYCERIDES BLOOD (03/02/2021 11:41 PM [...] Stewart MD LAB - CHEMISTRY ORD ERABLES [facility] [address] [place] [address], [facility] [phone] * (ABNORMAL) CBC W AUTO DIFFERENTIAL (03/02/2021 11:41 PM CDT) WBC 20.3(H) 3.5 - 10.5 10? 3 /uL 03/02/2021 11:50 PM CDT [facility] RBC 3.67(L) 4.30 - 5.70 10? 6 /uL 03/02/2021 11:50 PM CDT [facility] Hemoglobin 10.2(L) 12.0 - 17.6 g/dL 03/02/2021 11:50 PM [facility] Hematocrit 32.0(L) 35.2 - 51.7 % 03/02/2021 11:50 PM T [facility] MCV 87.2 80.7 - 98.3 fL 03/02/2021 11:50 PM CDT [facility] MCH 27.8 26.7 - 34.0 pg 03/02/2021 11:50 PM CDT [facility] MCHC 31.9 30.8 - 35.9 g/dL 03/02/2021 11:50 PM T [facility] Platelet Count 623(H) 150 - 400 10? 3 /uL 03/02/2021 11:50 PM T [facility] RDW-SD 43.9 36.0 - 50.0 fL 03/02/2021 11:50 PM T [facility] RDW-CV 13.7 11.2 - 14.8 % [...] Felipe MD LAB - HEMATOLOGY ORD ERABLES [facility] [address] [place] [address], [facility] [phone] * (ABNORMAL) BASIC METABOLIC PANEL (CALCIUM TOTAL) [...] Organization Address City/State/ZIP Co de Phone Number [facility] [address] [place] [address], [facility] [phone] * (ABNORMAL) BLOOD GASES ART + COOX [...] - 17.6 g/dL 03/02/2021 11:46 PM CDT [facility] O2 Saturation Arterial 100 90 - 100 % 03/02/2021 11:46 PM T [facility] FI O2 Arterial 40.0 % 03/02/2021 11:46 PM CDT [facility] Blood, arterial ARTERIAL BLOOD SPECIMEN / Unknown Arterial Puncture / Unknown 03/02/2021 11:41 PM CDT 03/02/2021 11:44 PM CDT Narrative [facility] - 03/02/2021 11:46 PM CDT Carboxyhemoglobin Normal Concentration: Non-smokers: 0-2%; Smokers: 0-9%; Toxic: >20% Fredy Felipe MD LAB - BLOOD GASES OR DERABLES Performing Organization Address [facility] de Phone Number [address] [address], [facility] [phone] * PT-INR [facility] (03/02/2021 11:41 PM CDT) PT 14.8 [...] 11:41 PM CDT 03/02/2021 11:52 PM CDT Frdey Felipe MD LAB - COAGULATION OR DERABLES Performing Organization Address [facility] Co de Phone Number [address] [address], [facility] [phone] * PHOSPHORUS BLOOD (03/02/2021 11:41 PM CDT) Phosphorus 4.0 2.8 - 5.1 mg/dL 03/03/2021 12:10 AM CDT [facility] Blood BLOOD SPECIMEN / Unknown Venipuncture / Unknown 03/02/2021 11:41 PM CDT 03/02/2021 11:45 PM CDT Fredy Felipe MD LAB - CHEMISTRY JOSE ENRIQUE VELA Performing Organization Address City/[facility]/ZIP Co de Phone Number [address] [address], [facility] [phone] * MAGNESIUM BLOOD (03/02/2021 11:41 PM CDT) Magnesium 2.1 1.6 - 2.6 mg/dL 03/03/2021 12:10 AM CDT [facility] Blood BLOOD SPECIMEN / Unknown Venipuncture / Unknown 03/02/2021 11:41 PM CDT 03/02/2021 11:45 PM CDT Fredy Felipe MD LAB - CHEMISTRY JOSE ENRIQUE VELA Performing Organization Address [facility] Co de Phone Number [address] [address], [facility] [phone] * (ABNORMAL) CALCIUM IONIZED WHOLE BLOOD (03/02/2021 11:41 PM CDT) Calcium Ionized 1.21 mmol/L 03/02/2021 11:47 PM CDT [facility] pH 7.49(H) 7.35 - 7.45 pH 03/02/2021 11:47 PM CDT [facility] Ionized Calcium pH Adjusted 1.26 1.19 - 1.34 mmol/L 03/02/2021 11:47 PM CDT [facility] Blood BLOOD SPECIMEN / Unknown Venipuncture / Unknown 03/02/2021 11:41 PM CDT 03/02/2021 11:44 PM CDT Fredy Felipe MD LAB - CHEMISTRY JOSE ENRIQUE VELA [facility] [address] [place] [address], [facility] [phone] * (ABNORMAL) URINALYSIS REFLEX TO MICROSCOPIC NO CULTURE (03/02/2021 6:52 PM CDT) Color UA Janis(A) Straw, Yellow 03/02/2021 7:39 PM [facility] Clarity UA Slt Cloudy(A) Clear 03/02/2021 7:39 PM [facility] Specific [place] UA 1.031(H) 1.005 - 1.030 03/02/2021 7:39 [...] UA 1+ /LPF 03/02/2021 7:39 PM CDT [facility] Urine URINE SPECIMEN OBTAINED VIA [employer] URINARY CATHETER / Unknown Collection / Unknown 03/02/2021 6:52 PM CDT 03/02/2021 7:00 PM CDT Narrative [facility] - 03/02/2021 7:39 PM CDT Delilah Stubbs APRN-Tal [employer] LAB - URINALYSIS ORDERABLES [address] [address], [place] [phone] * UREA NITROGEN URINE RANDOM (03/02/2021 6:52 PM CDT) Urea Nitrogen Random Urine 1,057 Not Established mg/dL 03/02/2021 7:33 PM CDT [facility] Urine URINE SPECIMEN OBTAINED BY CLEAN CATCH PROCEDURE / Unknown Collection / Unknown 03/02/2021 6:52 PM CDT 03/02/2021 7:00 PM CDT Delilah Stubbs APRN-Tal [employer] [facility] - URINE CHEMISTRY ORDERABLES Performing Organization Address City/[facility]/ZIP Co de Phone Number [address] [address], [place] [phone] * CHLORIDE URINE RANDOM (03/02/2021 6:52 PM CDT) Chloride Random Urine 45 Not Established mmol/L 03/02/2021 7:33 PM CDT [facility] Urine URINE SPECIMEN OBTAINED BY CLEAN CATCH PROCEDURE / Unknown Collection / Unknown 03/02/2021 6:52 PM CDT 03/02/2021 7:00 PM CDT Delilah Stubbs APRN-Tal [employer] [facility] - URINE CHEMISTRY ORDERABLES [address] [address], [place] [phone] * LYTES (NA K) URINE RANDOM PANEL (03/02/2021 6:52 PM CDT) Sodium Urine 97 Not Established mmol/L 03/02/2021 7:33 PM CDT [facility] Potassium Urine 36.5 Not Established mmol/L 03/02/2021 7:33 PM CDT [facility] Urine URINE SPECIMEN OBTAINED BY CLEAN CATCH PROCEDURE / Unknown Collection / Unknown 03/02/2021 6:52 PM CDT 03/02/2021 7:00 PM CDT Delilah JEFFERY [employer] [facility] - URINE CHEMISTRY ORDERABLES [address] [address], [facility] [phone] * CREATININE URINE RANDOM (03/02/2021 6:52 PM CDT) Creatinine Urine 135 Not Established mg/dL 03/02/2021 7:33 PM CDT [facility] Urine URINE SPECIMEN OBTAINED BY CLEAN CATCH PROCEDURE / Unknown Collection / Unknown 03/02/2021 6:52 PM CDT 03/02/2021 7:00 PM CDT Delilah JEFFERY [employer] [facility] - URINE CHEMISTRY ORDERABLES [address] [address], [facility] [phone] * (ABNORMAL) HEPATIC FUNCTION PANEL (03/02/2021 6:40 PM CDT) Protein Total 7.2 6.0 - 8.3 g/dL 7:40 PM CDT [facility] Albumin 1.8(L) 3.4 - 5.0 g/dL 03/02/2021 7:40 PM CDT [facility] Bilirubin Total 0.6 0.2 - 1.2 mg/dL 02/14 7:40 PM CDT [facility] Bilirubin Conjugated 0.3 0.1 - 0.5 mg/dL 03/02/2021 7:40 PM T [facility] Bilirubin Unconjugated 0.3 Unconjugated Bilirubin is a calculated value: Reference ranges have not been established. mg/dL 03/02/2021 7:40 PM T [facility] Alkaline Phosphatase 226(H) 40 - 150 U/L 03/02/2021 7:40 PM CDT [facility] ALT 27 5 - 55 U/L 03/02/2021 7:40 PM T [facility] AST 46(H) 5 - 34 U/L 03/02/2021 7:40 PM [facility] Albumin/Globulin Ratio 0.3(L) 1.1 - 2.3 03/02/2021 7:40 PM [facility] Blood BLOOD SPECIMEN / Unknown Venipuncture / Unknown 03/02/2021 6:40 PM CDT 03/02/2021 6:46 PM CDT Delilah JEFFERY [employer] [facility] - CHEMISTRY ORDERABLES Performing Organization Address City/State/[facility] Co de Phone Number [facility] [address] [place] [address] [phone] * (ABNORMAL) BASIC METABOLIC PANEL (CALCIUM TOTAL) (03/02/2021 6:40 PM CDT) BUN 20 7 - 26 mg/dL 03/02/2021 7:40 PM [facility] Creatinine 1.26(H) 0.71 - 1.16 mg/dL 03/02/2021 7:40 PM CDT [facility] Sodium 139 136 - 145 mmol/L 03/02/2021 7:40 PM T [facility] Potassium 3.8 3.5 - 4.5 mmol/L 03/02/2021 7:40 PM CDT [facility] Chloride 105 98 - 107 mmol/L 03/02/2021 7:40 PM T [facility] CO2 22 22 - 29 mmol/L [...] CDT 03/02/2021 6:46 PM CDT Delilah Stubbs PAD MACHINE OFFBEARER-Tal [employer] INSPECTOR TRIMMER LAB - CHEMISTRY ORDERABLES [facility] [address] [place] [address], [facility] [phone] * (ABNORMAL) BLOOD GASES ART + COOX [...] (HHB) % 0.4 % 03/02/2021 5:58 AM T [facility] Methemoglobin 0.9 0.0 - 2.0 % 03/02/2021 5:58 AM [facility] Carboxyhemoglobin 2.4(H) 0.0 - 2.0 % 2020 5:58 AM T [facility] O2 Content Arterial 15.1 Interpret within clinical context mg/dL 03/02/2021 5:58 AM [facility] Hemoglobin by COOX 10.9(L) 12.0 - 17.6 g/dL 03/02/2021 5:58 AM [facility] O2 Saturation Arterial 100 90 - 100 % 03/02/2021 5:58 AM [facility] FI O2 Arterial 40.0 % 03/02/2021 5:58 AM [facility] Blood, arterial ARTERIAL BLOOD SPECIMEN / Unknown Arterial Puncture / Unknown 03/02/2021 5:54 AM CDT 03/02/2021 5:56 AM CDT Narrative [facility] - 03/02/2021 5:58 AM CDT Carboxyhemoglobin Normal Concentration: Non-smokers: 0-2%; Smokers: 0-9%; Toxic: >20% Fredy Felipe MD LAB - BLOOD GASES OR DERABLES [facility] [address] [place] [address], [facility] [phone] * XR CHEST 1VW PORTABLE (03/02/2021 4:22 [...] but stable. Dictated by Uyen Garcia MD (doctor of radiology). This report was approved ??by Uyen Garcia ?? on 03/02/2021 11:30 AM . Najma, Dr. JASWINDER CARRION have personally reviewed and [...] but stable. Dictated by Uyen Garcia MD (doctor of radiology). This report was approved by Uyen Garcia on 03/02/2021 11:30 AM . I, Dr. JASWINDER CARRION have personally reviewed and interpreted this examination/study. This report was electronically signed by JASWINDER CARRION on 03/02/2021 11:30 AM . Fredy Felipe MD DIAGNOSTIC IMAGING O RDERABLES * (ABNORMAL) DIFFERENTIAL MANUAL (03/01/2021 11:[address] [facility]) WBC (corrected for NRBC) 17.9 10? 3 [...] Felipe MD LAB - HEMATOLOGY ORD TERESA [facility] [address] [place] [address], [facility] [phone] * (ABNORMAL) HEPATIC FUNCTION PANEL (03/01/2021 11:16 PM CDT) Pathologist [facility] Protein Total 6.7 6.0 - 8.3 g/dL 11:46 PM T [facility] Albumin 1.5(L) 3.4 - 5.0 g/dL 03/01/2021 11:46 PM T [facility] Bilirubin Total 0.6 0.2 - 1.2 mg/dL 02/14 11:46 PM T [facility] Bilirubin Conjugated 0.5 0.1 - 0.5 mg/dL 03/01/2021 11:46 PM [facility] Bilirubin Unconjugated 0.1 Unconjugated Bilirubin is a calculated value: Reference ranges have not been established. mg/dL 03/01/2021 11:46 PM [facility] Alkaline Phosphatase 270(H) 40 - 150 U/L 03/01/2021 11:46 PM T [facility] ALT 32 5 - 55 U/L 03/01/2021 11:46 PM T [facility] AST 58(H) 5 - 34 U/L 03/01/2021 11:46 PM T [facility] Albumin/Globulin Ratio 0.3(L) 1.1 - 2.3 03/01/2021 11:46 PM T [facility] Blood BLOOD SPECIMEN / Unknown Venipuncture / Unknown 03/01/2021 11:16 PM CDT 03/01/2021 11:21 PM CDT Fredy Felipe MD LAB - CHEMISTRY JOSE ENRIQUE VELA [address] [address] [phone] * (ABNORMAL) CBC W AUTO DIFFERENTIAL (03/01/2021 11:16 PM T) [facility] WBC 17.9(H) 3.5 - 10.5 10? 3 [...] Felipe MD LAB - HEMATOLOGY ORD TERESA [facility] [address] [place] [address], [facility] [phone] * (ABNORMAL) BASIC METABOLIC PANEL (CALCIUM TOTAL) [...] MD LAB - CHEMISTRY JOSE ENRIQUE VELA [facility] [address] [place] [address], [facility] [phone] * (ABNORMAL) BLOOD GASES ART + COOX PANEL (03/01/2021 11:[address] [facility]) pH Arterial 7.58(H) 7.35 - 7.45 pH [...] 03/01/2021 11:16 PM CDT 03/01/2021 11:20 PM [facility] - 03/01/2021 11:22 PM CDT Carboxyhemoglobin Normal Concentration: Non-smokers: 0-2%; Smokers: 0-9%; Toxic: >20% Fredy Felipe MD LAB - BLOOD GASES OR DERABLES Performing Organization Address [facility] Co de Phone Number [address] [address], [place] [phone] * (ABNORMAL) PT-INR [facility] (03/01/2021 11:16 PM CDT) PT 14.9(H) 12.1 - 14.8 Seconds 03/01/2021 11:34 PM CDT [facility] INR 1.2 See Comment 03/01/2021 11:34 PM CDT [facility] Comment:The suggested therap eutic range for standard coumadin (warfarin) therapy is an INR of 2.0-3.0. For high-risk patients (Mechanical Mitral Valve Prosthesis, etc.), the suggested prophylactic therapeutic range is an INR of 2.5-3.5. Blood BLOOD SPECIMEN / Unknown Venipuncture / Unknown 03/01/2021 11:16 PM CDT 03/01/2021 11:20 PM CDT Fredy Felipe MD LAB - COAGULATION OR DERABLES Performing Organization Address [facility] Co de Phone Number [address] [address], [place] [phone] * PHOSPHORUS BLOOD (03/01/2021 11:16 PM CDT) Pathologist [facility] Phosphorus 3.7 2.8 - 5.1 mg/dL 03/01/2021 11:46 PM CDT [facility] Blood BLOOD SPECIMEN / Unknown Venipuncture / Unknown 03/01/2021 11:16 PM CDT 03/01/2021 11:21 PM CDT Fredy Felipe MD LAB - CHEMISTRY ORDE RABSILVA Performing Organization Address City/[facility]/ZIP Co de Phone Number [address] [address], [place] [phone] * MAGNESIUM BLOOD (03/01/2021 11:16 PM CDT) Magnesium 2.1 1.6 - 2.6 mg/dL 03/01/2021 11:46 PM CDT [facility] Blood BLOOD SPECIMEN / Unknown Venipuncture / Unknown 03/01/2021 11:16 PM CDT 03/01/2021 11:21 PM CDT Fredy Felipe MD LAB - CHEMISTRY JOSE ENRIQUE VELA Performing Organization Address City/[facility]/ZIP Co de Phone Number [facility] [address] [place] [address], [place] [phone] * (ABNORMAL) CALCIUM IONIZED WHOLE BLOOD (03/01/2021 11:16 PM CDT) Calcium Ionized 1.18 mmol/L 03/01/2021 11:22 PM CDT [facility] pH 7.57(H) 7.35 - 7.45 pH 03/01/2021 11:22 PM CDT [facility] Ionized Calcium pH Adjusted 1.27 1.19 - 1.34 mmol/L 03/01/2021 11:22 PM CDT [facility] Blood BLOOD SPECIMEN / Unknown Venipuncture / Unknown 03/01/2021 11:16 PM CDT 03/01/2021 11:20 PM CDT Fredy Felipe MD LAB - CHEMISTRY JOSE ENRIQUE VELA [facility] [address] [place] [address], [place] [phone] * XR CHEST 1VW PORTABLE (03/01/2021 4:20 [...] Hernandez M.D. (resident) Dr. NAOMY Yao MD, KATHLEEN have personally reviewed and interpreted this examination/study. This report was electronically signed by NAOMY LAZO MD, KATHLEEN ??on 03/03/2021 3:30 PM . Procedure Note [...] 10? 3 /uL 03/01/2021 1:34 AM CDT [facility] Total Cell Count 100 03/01/2021 1:34 AM CDT [facility] Neutrophils Absolute Manual 12.01(H) 1.60 [...] Felipe MD LAB - HEMATOLOGY ORD ERABLES [facility] [address] [place] [address], [facility] [phone] * (ABNORMAL) CBC W AUTO DIFFERENTIAL (03/01/2021 [...] 12:11 AM CDT 03/01/2021 12:[address] [facility] Fredy Felipe MD LAB - HEMATOLOGY ORD ERABLES [facility] [address] [place] [address], [facility] [phone] * (ABNORMAL) BASIC METABOLIC PANEL (CALCIUM TOTAL) [...] Organization Address City/State/ZIP Co de Phone Number [facility] [address] [place] [address], [facility] [phone] * (ABNORMAL) BLOOD GASES ART + COOX [...] 03/01/2021 12:11 AM CDT 03/01/2021 12:16 AM [facility] - 03/01/2021 12:[address] [facility] Carboxyhemoglobin Normal Concentration: Non-smokers: 0-2%; Smokers: 0-9%; Toxic: >20% Fredy Felipe MD LAB - BLOOD GASES OR DERABLES [facility] [address] [place] [address], [facility] [phone] * PT-INR [facility] (03/01/2021 12:11 AM CDT) PT 14.0 12.1 - 14.8 Seconds 03/01/2021 12:35 AM CDT [facility] INR 1.1 See Comment 03/01/2021 12:35 AM CDT [facility] Comment:The suggested therap eutic range for standard coumadin (warfarin) therapy is an INR of 2.0-3.0. For high-risk patients (Mechanical Mitral Valve Prosthesis, etc.), the suggested prophylactic therapeutic range is an INR of 2.5-3.5. Blood BLOOD SPECIMEN / Unknown Venipuncture / Unknown 03/01/2021 12:11 AM CDT 03/01/2021 12:16 AM CDT Fredy Felipe MD LAB - COAGULATION OR DERABLES [address] [address], [facility] [phone] * PHOSPHORUS BLOOD (03/01/2021 12:11 AM CDT) Phosphorus 3.9 2.8 - 5.1 mg/dL 03/01/2021 12:42 AM CDT [facility] Blood BLOOD SPECIMEN / Unknown Venipuncture / Unknown 03/01/2021 12:11 AM CDT 03/01/2021 12:18 AM CDT Fredy Felipe MD LAB - CHEMISTRY ORDE RABLES [address] [address], [facility] [phone] * MAGNESIUM BLOOD (03/01/2021 12:11 AM CDT) Magnesium 2.1 1.6 - 2.6 mg/dL 03/01/2021 12:42 AM CDT [facility] Blood BLOOD SPECIMEN / Unknown Venipuncture / Unknown 03/01/2021 12:11 AM CDT 03/01/2021 12:18 AM CDT Fredy Felipe MD LAB - CHEMISTRY JOSE ENRIQUE VELA Performing Organization Address City/[facility]/ZIP Co de Phone Number [facility] [address] [place] [address], [place] [phone] * CALCIUM IONIZED WHOLE BLOOD (03/01/2021 12:11 AM CDT) [facility] Calcium Ionized 1.21 mmol/L 03/01/2021 12:22 AM CDT [facility] pH 7.45 7.35 - 7.45 pH 03/01/2021 12:22 AM CDT [facility] Ionized Calcium pH Adjusted 1.24 1.19 - 1.34 mmol/L 03/01/2021 12:22 AM CDT [facility] Blood BLOOD SPECIMEN / Unknown Venipuncture / Unknown 03/01/2021 12:11 AM CDT 03/01/2021 12:16 AM CDT Fredy Felipe MD LAB - CHEMISTRY JOSE ENRIQUE VELA Performing Organization Address [facility] Co de Phone Number [address] [address], [facility] [phone] * XR CHEST 1VW PORTABLE (02/28/2021 5:13 AM CDT) Anatomical Region Laterality Modality Chest Radiographic Sera ging 02/28/2021 1:26 PM CDT Impressions 02/28/2021 4:37 PM CDT IMPRESSION: No significant change, diffuse multifocal patchy opacities, may represent multifocal pneumonia or pulmonary contusions given the history of trauma. Report dictated by Simone Alexander MD, PhD (doctor of radiology). I, Dr. Jamaal CASTILLO M.D. have personally [...] Report dictated by Simone Alexander MD, PhD (doctor of radiology). Dr. Jamaal Yao M.D. have personally reviewed [...] Report dictated by Simone Alexander MD, PhD (doctor of radiology). Dr. Jamaal Yao M.D. have personally reviewed [...] Report dictated by Simone Alexander MD, PhD (doctor of radiology). I, Dr. Jamaal CASTILLO M.D. have personally [...] 3 /uL 02/28/2021 3:04 AM [facility] Monocytes Absolute Manual 2.41(H) 0.26 - 1.07 10? 3 /uL 02/28/2021 3:04 AM [facility] Eosinophils Absolute Manual 0.44 0.00 - 0.47 10? 3 /uL 02/28/2021 3:04 AM [facility] Neutrophil % Manual 82(H) 35 - 70 % 02/28/2021 3:04 AM CDT [facility] Lymphocyte % Manual 5(L) 20 - 43 % 02/28/2021 3:04 AM CDT [facility] Monocytes % Manual 11 5 - 13 % 02/28/2021 3:04 AM CDT [facility] Eosinophils % Manual 2 0 - 6 % 02/28/2021 3:04 AM CDT [facility] Platelet Estimate Increased( A) Adequate 02/28/2021 3:04 AM CDT [facility] RBC Morphology Normal 02/28/2021 3:04 AM CDT [facility] Blood BLOOD SPECIMEN / Unknown Venipuncture / Unknown 02/28/2021 12:56 AM CDT 02/28/2021 1:22 AM CDT Fredy Felipe MD LAB - HEMATOLOGY ORD ERABLES Performing Organization Address [facility] Co de Phone Number [address] [address], [place] [phone] * (ABNORMAL) TRIGLYCERIDES BLOOD (02/28/2021 12:56 AM CDT) Pathologist [facility] Triglycerides 389(H) <150 mg/dL 02/28/2021 1:51 AM CDT [facility] Comment: ATP III Classification of Triglycerides: ?<150 mg/dL: ??Normal ? 150 - 199 mg/dL: ??Borderline High ? 200 - 400 mg/dL: ??High ?>500 mg/dL: ??Very High Blood BLOOD SPECIMEN / Unknown Venipuncture / Unknown 02/28/2021 12:56 AM CDT 02/28/2021 1:22 AM CDT Kelvin Stewart MD LAB - CHEMISTRY ORD ERABLES Performing Organization Address [facility]/ZIP Co de Phone Number [address] [address], [place] [phone] * (ABNORMAL) CBC W AUTO DIFFERENTIAL (02/28/2021 [...] Unknown Venipuncture / Unknown 02/28/2021 12:56 AM T 02/28/2021 1:[address] [facility] Fredy Felipe MD LAB - HEMATOLOGY ORD ERABLES Performing Organization Address City/State/[facility] Co de Phone Number [facility] [address] [place] [address], [facility] [phone] * (ABNORMAL) BASIC METABOLIC PANEL (CALCIUM TOTAL) (02/28/2021 12:56 AM CDT) BUN 24 7 - 26 mg/dL 02/28/2021 1:51 AM [facility] Creatinine 1.30(H) 0.71 - [...] MD LAB - CHEMISTRY JOSE ENRIQUE VEAL [facility] Organization Address City/State/ZIP Co de Phone Number [facility] [address] [place] [address], [facility] [phone] * (ABNORMAL) BLOOD GASES ART + COOX [...] 02/28/2021 12:56 AM T 02/28/2021 1:18 AM [facility] - 02/28/2021 1:[address] [facility] Carboxyhemoglobin Normal Concentration: Non-smokers: 0-2%; Smokers: 0-9%; Toxic: >20% Fredy Felipe MD LAB - BLOOD GASES OR DERABLES Performing Organization Address City/[facility]/ZIP Co de Phone Number [facility] [address] [place] [address], [facility] [phone] * PT-INR [facility] (02/28/2021 12:56 AM CDT) PT 14.3 12.1 - 14.8 Seconds 02/28/2021 1:42 AM CDT [facility] INR 1.1 See Comment 02/28/2021 1:42 AM CDT [facility] Comment:The suggested therap eutic range for standard coumadin (warfarin) therapy is an INR of 2.0-3.0. For high-risk patients (Mechanical Mitral Valve Prosthesis, etc.), the suggested prophylactic therapeutic range is an INR of 2.5-3.5. Blood BLOOD SPECIMEN / Unknown Venipuncture / Unknown 02/28/2021 12:56 AM CDT 02/28/2021 1:20 AM CDT Fredy Felipe MD LAB - COAGULATION OR DERABLES Performing Organization Address [facility]/ZIP Co de Phone Number [facility] [address] [place] [address], [facility] [phone] * PHOSPHORUS BLOOD (02/28/2021 12:56 AM CDT) Pathologist [facility] Phosphorus 4.0 2.8 - 5.1 mg/dL 02/28/2021 1:51 AM CDT [facility] Blood BLOOD SPECIMEN / Unknown Venipuncture / Unknown 02/28/2021 12:56 AM CDT 02/28/2021 1:22 AM CDT Fredy Felipe MD LAB - CHEMISTRY ORDNolan MANCINILES [facility] [address] [place] [address], [facility] [phone] * MAGNESIUM BLOOD (02/28/2021 12:56 AM CDT) Magnesium 2.1 1.6 - 2.6 mg/dL 02/28/2021 1:51 AM CDT [facility] Blood BLOOD SPECIMEN / Unknown Venipuncture / Unknown 02/28/2021 12:56 AM CDT 02/28/2021 1:22 AM CDT Fredy Felipe MD LAB - CHEMISTRY JOSE ENRIQUE VELA Performing Organization Address [facility] Co de Phone Number [address] [address], [facility] [phone] * (ABNORMAL) CALCIUM IONIZED WHOLE BLOOD (02/28/2021 12:56 AM CDT) Calcium Ionized 1.22 mmol/L 02/28/2021 1:21 AM CDT [facility] pH 7.49(H) 7.35 - 7.45 pH 02/28/2021 1:21 AM CDT [facility] Ionized Calcium pH Adjusted 1.27 1.19 - 1.34 mmol/L 02/28/2021 1:21 AM CDT [facility] Blood BLOOD SPECIMEN / Unknown Venipuncture / Unknown 02/28/2021 12:56 AM CDT 02/28/2021 1:18 AM CDT Fredy Felipe MD LAB - CHEMISTRY JOSE ENRIQUE VELA Performing Organization Address [facility] Co de Phone Number [address] [address], [facility] [phone] * XR CHEST 1VW PORTABLE (02/27/2021 5:30 [...] is stable. Dictated by Rico Sawant DO (doctor of radiology). Dr. Jamaal Yao M.D. have personally reviewed [...] is stable. Dictated by Rico Sawant DO (doctor of radiology). Dr. Jamaal Yao M.D. have personally reviewed [...] is identified. Dictated by Rico Sawant DO (doctor of radiology). Dr. NAOMY Yao MD, FRCR have personally reviewed and interpreted this examination/study. This report was electronically signed by NAOMY LAZO MD, FRKEN ??on 02/28/2021 3:46 PM . Narrative 02/28/2021 [...] is identified. Dictated by Rico Sawant DO (doctor of radiology). Dr. NAOMY Yao MD, FRCR have personally reviewedand interpreted this examination/study. This report was electronically signed by NAOMY LAZO MD, FRCR on 02/28/2021 3:46 PM . Fredy Felipe MD DIAGNOSTIC IMAGING O RDERABLES * (ABNORMAL) PT-INR [facility] (02/27/2021 1:31 AM CDT) Pathologist [facility] PT 14.9(H) 12.1 - 14.8 Seconds 02/27/2021 1:48 AM CDT [facility] INR 1.2 See Comment 02/27/2021 1:48 [...] Felipe MD LAB - COAGULATION OR DERABLES [facility] [address] [place] [address], [facility] [phone] * (ABNORMAL) DIFFERENTIAL MANUAL (02/27/2021 12:52 AM CDT) [facility] WBC (corrected for NRBC) 28.9 10? 3 /uL 02/27/2021 2:19 AM T [facility] Total Cell Count 100 02/27/2021 2:19 AM [facility] Neutrophils Absolute Manual 23.12(H) 1.60 - 7.00 10? 3 /uL 02/27/2021 2:19 AM [facility] Comment:(BANDS+SEGS) x WBC = NEUT # (ANC) Lymphocyte Absolute Manual 1.16 1.10 - 3.90 10? 3 /uL 02/27/2021 2:19 AM [facility] Monocytes Absolute Manual 4.05(H) 0.26 - 1.07 10? 3 /uL 02/27/2021 2:19 AM [facility] Eosinophils Absolute Manual 0.29 0.00 - 0.47 10? 3 /uL 02/27/2021 2:19 AM [facility] Neutrophil % Manual 80(H) 35 - 70 % 02/27/2021 2:19 AM [facility] Lymphocyte % Manual 4(L) 20 - 43 % 02/27/2021 2:19 AM T [facility] Monocytes % Manual 14(H) 5 - [...] Felipe MD LAB - HEMATOLOGY ORD ERABLES [facility] [address] [place] [address], [facility] [phone] * (ABNORMAL) CBC W AUTO DIFFERENTIAL (02/27/2021 [...] Felipe MD LAB - HEMATOLOGY ORD ERABLES [facility] [address] [place] [address], [facility] [phone] * (ABNORMAL) BASIC METABOLIC PANEL (CALCIUM TOTAL) [...] Unknown Venipuncture / Unknown 02/27/2021 12:52 AM T 02/27/2021 1:[address] [facility] Fredy Felipe MD LAB - [facility]MISTRY [facility] Organization Address City/State/ZIP Co de Phone Number [facility] [address] [place] [address], [facility] [phone] * (ABNORMAL) BLOOD GASES ART + COOX PANEL (02/27/2021 12:[address] [facility]) pH Arterial 7.43 7.35 - 7.45 pH [...] (HHB) % 0.1 % 02/27/2021 1:08 AM T [facility] Methemoglobin 0.9 0.0 - 2.0 % [...] O2 Arterial 45.0 % 02/27/2021 1:08 AM [facility] Blood, arterial ARTERIAL BLOOD SPECIMEN / Unknown Arterial Puncture / Unknown 02/27/2021 12:52 AM CDT 02/27/2021 1:05 AM CDT Narrative [facility] - 02/27/2021 1:08 AM CDT Carboxyhemoglobin Normal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 Fredy Felipe MD LAB - CHEMISTRY JOSE ENRIQUE VELA Performing Organization Address City/[facility]/ZIP Co de Phone Number [address] [address], [place] [phone] * CREATININE URINE RANDOM (02/22/2021 5:45 AM CDT) Creatinine Urine 212 Not Established mg/dL 02/22/2021 6:25 AM CDT [facility] Urine URINE SPECIMEN OBTAINED BY CLEAN CATCH PROCEDURE / Unknown Collection / Unknown 02/22/2021 5:45 AM CDT 02/22/2021 6:13 AM CDT Dino RUSSELLC LAB - URINE CHEMI STRY ORDERABLES [address] [address], [place] [phone] * UREA NITROGEN URINE RANDOM (02/22/2021 5:45 AM CDT) Urea Nitrogen Random Urine 1,198 Not Established mg/dL 02/22/2021 6:25 AM CDT [facility] Urine URINE SPECIMEN OBTAINED BY CLEAN CATCH PROCEDURE / Unknown Collection / Unknown 02/22/2021 5:45 AM CDT 02/22/2021 6:13 AM CDT Dino Hudson PA-C LAB - URINE CHEMI STRY ORDERABLES Performing Organization Address City/[facility]/ZIP Co de Phone Number [address] [address], [place] [phone] * SODIUM URINE RANDOM (02/22/2021 5:45 AM CDT) Sodium Urine 56 Not Established mmol/L 02/22/2021 6:25 AM CDT [facility] Urine URINE SPECIMEN OBTAINED BY CLEAN CATCH PROCEDURE / Unknown Collection / Unknown 02/22/2021 5:45 AM CDT 02/22/2021 6:13 AM CDT Dino Hudson PA-C LAB - URINE CHEMI STRY ORDERABLES Performing Organization Address City/[facility]/ZIP Co de Phone Number [address] [address], [place] [phone] * (ABNORMAL) URINALYSIS W/MICROSCOPIC NO CULTURE (02/22/2021 5:[address] [facility]) Color UA Janis(A) Straw, Yellow 02/22/2021 6:08 AM [facility] Clarity UA Slt Cloudy(A) Clear 02/22/2021 6:08 AM [facility] Specific [place] UA 1.024 1.005 - 1.030 02/22/2021 6:08 [...] AM CDT 02/22/2021 5:49 AM CDT Narrative [facility] - 02/22/2021 6:08 AM CDT Dino Hudson PA-C LAB - URINALYSIS ORDERABLES [facility] [address] [place] [address], [facility] [phone] * XR CHEST 1VW PORTABLE (02/22/2021 4:54 [...] ART + COOX PANEL (02/22/2021 3:17 AM CD) pH Arterial 7.41 7.35 - 7.45 pH [...] 96.7 % 02/22/2021 3:23 AM [facility] Dexoyhemoglobin (HHB) % 0.8 % 02/22/2021 3:23 AM [facility] Methemoglobin <0.8 0.0 - 2.0 % [...] AM CDT 02/22/2021 3:20 AM CDT Narrative [facility] - 02/22/2021 3:23 AM CDT Carboxyhemoglobin Normal Concentration: Non-smokers: 0-2%; Smokers: 0-9%; Toxic: >20% Dino Hudson PA-C LAB - BLOOD GASES ORDERABLES [facility] [address] [place] [address], [facility] [phone] * (ABNORMAL) CBC W AUTO DIFFERENTIAL (02/21/2021 [...] Felipe MD LAB - HEMATOLOGY ORD ERABLES [facility] [address] [place] [address], [facility] [phone] * (ABNORMAL) BASIC METABOLIC PANEL (CALCIUM TOTAL) [...] Organization Address City/State/ZIP Co de Phone Number [facility] [address] [place] [address], [facility] [phone] * (ABNORMAL) BLOOD GASES ART + COOX [...] Arterial 60.0 % 02/21/2021 11:20 PM CDT [facility] Blood, arterial ARTERIAL BLOOD SPECIMEN / Unknown Arterial Puncture / Unknown 02/21/2021 11:12 PM CDT 02/21/2021 11:18 PM CDT Narrative [facility] - 02/21/2021 11:20 PM CDT Carboxyhemoglobin Normal Concentration: Non-smokers: 0-2%; Smokers: 0-9%; Toxic: >20% Fredy Felipe MD LAB - BLOOD GASES OR DERABLES Performing Organization Address [facility] Co de Phone Number [facility] [address] [place] [address], [facility] [phone] * (ABNORMAL) PT-INR [facility] (02/21/2021 11:12 PM CDT) PT 15.2(H) 12.1 - 14.8 Seconds 02/21/2021 11:31 PM CDT [facility] INR 1.2 See Comment 02/21/2021 11:31 PM CDT [facility] Comment:The suggested therap eutic range for standard coumadin (warfarin) therapy is an INR of 2.0-3.0. For high-risk patients (Mechanical Mitral Valve Prosthesis, etc.), the suggested prophylactic therapeutic range is an INR of 2.5-3.5. Blood BLOOD SPECIMEN / Unknown Venipuncture / Unknown 02/21/2021 11:12 PM CDT 02/21/2021 11:18 PM CDT Fredy Felipe MD LAB - COAGULATION OR DERABLES Performing Organization Address [facility] Co de Phone Number [facility] [address] [place] [address], [facility] [phone] * PHOSPHORUS BLOOD (02/21/2021 11:12 PM CDT) Phosphorus 3.5 2.8 - 5.1 mg/dL 02/21/2021 11:42 PM CDT [facility] Blood BLOOD SPECIMEN / Unknown Venipuncture / Unknown 02/21/2021 11:12 PM CDT 02/21/2021 11:16 PM CDT Fredy Felipe MD LAB - CHEMISTRY JOSE ENRIQUE VELA [address] [address], [place] [phone] * MAGNESIUM BLOOD (02/21/2021 11:12 PM CDT) Magnesium 1.8 1.6 - 2.6 mg/dL 02/21/2021 11:42 PM CDT [facility] Blood BLOOD SPECIMEN / Unknown Venipuncture / Unknown 02/21/2021 11:12 PM CDT 02/21/2021 11:16 PM CDT Fredy Felipe MD LAB - CHEMISTRY JOSE ENRIQUE VELA Performing Organization Address City/[facility]/ZIP Co de Phone Number [address] [address], [place] [phone] * (ABNORMAL) CALCIUM IONIZED WHOLE BLOOD (02/21/2021 11:12 PM CDT) Calcium Ionized 1.10 mmol/L 02/21/2021 11:21 PM CDT [facility] pH 7.62(H) 7.35 - 7.45 pH 02/21/2021 11:21 PM CDT [facility] Ionized Calcium pH Adjusted 1.20 1.19 - 1.34 mmol/L 02/21/2021 11:21 PM CDT [facility] Blood BLOOD SPECIMEN / Unknown Venipuncture / Unknown 02/21/2021 11:12 PM CDT 02/21/2021 11:18 PM CDT Fredy Felipe MD LAB - CHEMISTRY JOSE ENRIQUE VELA [address] [address], [place] [phone] * (ABNORMAL) TRIGLYCERIDES BLOOD (02/21/2021 11:12 PM CDT) Triglycerides 236(H) <150 mg/dL 02/21/2021 11:42 PM CDT [facility] Comment: ATP III Classification of Triglycerides: ?<150 mg/dL: ??Normal ? 150 - 199 mg/dL: ??Borderline High ? 200 - 400 mg/dL: ??High ?>500 mg/dL: ??Very High Blood BLOOD SPECIMEN / Unknown Venipuncture / Unknown 02/21/2021 11:12 PM CDT 02/21/2021 11:16 PM CDT Fredy Felipe MD LAB - CHEMISTRY JOSE ENRIQUE VELA [facility] Organization Address City/State/ZIP Co de Phone Number [facility] [address] [place] [address], [facility] [phone] * XR FOREARM RIGHT 2VW (02/21/2021 9:01 AM CDT) Anatomical Region Laterality Modality Upper Extremity Radiographic Sera ging 02/21/2021 9:07 AM CDT Impressions 02/21/2021 10:41 AM CDT IMPRESSION: No acute radial or ulnar fracture identified. Dictated by Rico Sawant D.O. (Machine Finisher) I, Dr. CHOCO JIN MD have personally [...] fracture identified. Dictated by Rico Sawant D.O. (Machine Finisher) Dr. CHOCO Yao MD have personally reviewed [...] are normal. Dictated by Rico Sawant DO (doctor of radiology). Dr. AFRICA Yao M.D. have personally reviewed [...] are normal. Dictated by Rico Sawant DO (doctor of radiology). I, Dr. AFRICA HENRIQUEZ M.D. have personally reviewed and interpreted this examination/study. This report was electronically signed by AFRICA HENRIQUEZ M.D. on 02/21/2021 11:05 AM . Fredy Felipe MD DIAGNOSTIC IMAGING O RDERABLES * (ABNORMAL) CBC W AUTO DIFFERENTIAL (02/20/2021 11:26 PM CDT) WBC 14.6(H) 3.5 - 10.5 10? 3 /uL 02/20/2021 11:36 PM CDT [facility] RBC 5.46 4.30 - 5.70 10? [...] - HEMATOLOGY ORD ERABLES Performing Organization Address City/[facility]/ZIP Co de Phone Number [facility] [address] [place] [address], [facility] [phone] * BASIC METABOLIC PANEL (CALCIUM TOTAL) (02/20/2021 [...] Organization Address City/State/ZIP Co de Phone Number [facility] [address] [place] [address], [facility] [phone] * (ABNORMAL) BLOOD GASES ART + COOX [...] PM CDT 02/20/2021 11:30 PM CDT Narrative [facility] - 02/20/2021 11:32 PM CDT Carboxyhemoglobin Normal Concentration: Non-smokers: 0-2%; Smokers: 0-9%; Toxic: >20% Fredy Felipe MD LAB - BLOOD GASES OR DERABLES Performing Organization Address [facility] Co de Phone Number [address] [address], [facility] [phone] * PT-INR [facility] (02/20/2021 11:26 PM CDT) PT 14.8 12.1 - 14.8 Seconds 02/20/2021 11:45 PM CDT [facility] INR 1.2 See Comment 02/20/2021 11:45 PM CDT [facility] Comment:The suggested therap eutic range for standard coumadin (warfarin) therapy is an INR of 2.0-3.0. For high-risk patients (Mechanical Mitral Valve Prosthesis, etc.), the suggested prophylactic therapeutic range is an INR of 2.5-3.5. Blood BLOOD SPECIMEN / Unknown Venipuncture / Unknown 02/20/2021 11:26 PM CDT 02/20/2021 11:30 PM CDT Fredy Felipe MD LAB - COAGULATION OR DERABLES Performing Organization Address [facility] Co de Phone Number [address] [address], [facility] [phone] * PHOSPHORUS BLOOD (02/20/2021 11:26 PM CDT) Phosphorus 4.6 2.8 - 5.1 mg/dL 02/20/2021 11:54 PM CDT [facility] Blood BLOOD SPECIMEN / Unknown Venipuncture / Unknown 02/20/2021 11:26 PM CDT 02/20/2021 11:30 PM CDT Fredy Felipe MD LAB - CHEMISTRY JOSE ENRIQUE VELA [facility] [address] [place] [address], [facility] [phone] * MAGNESIUM BLOOD (02/20/2021 11:26 PM CDT) Magnesium 2.0 1.6 - 2.6 mg/dL 02/20/2021 11:54 PM CDT [facility] Blood BLOOD SPECIMEN / Unknown Venipuncture / Unknown 02/20/2021 11:26 PM CDT 02/20/2021 11:30 PM CDT Fredy Felipe MD LAB - CHEMISTRY JOSE ENRIQUE VELA Performing Organization Address City/[facility]/ZIP Co de Phone Number [address] [address], [facility] [phone] * (ABNORMAL) CALCIUM IONIZED WHOLE BLOOD (02/20/2021 11:26 PM CDT) Pathologist [facility] Calcium Ionized 1.14 mmol/L 02/20/2021 11:32 PM CDT [facility] pH 7.41 7.35 - 7.45 pH 02/20/2021 11:32 PM CDT [facility] Ionized Calcium pH Adjusted 1.14(L) 1.19 - 1.34 mmol/L 02/20/2021 11:32 PM CDT [facility] Blood BLOOD SPECIMEN / Unknown Venipuncture / Unknown 02/20/2021 11:26 PM CDT 02/20/2021 11:30 PM CDT Fredy Felipe MD LAB - CHEMISTRY JOSE ENRIUQE VELA [address] [address], [facility] [phone] * XR CHEST 1VW PORTABLE (02/20/2021 1:56 PM CDT) Anatomical Region Laterality Modality Chest Radiographic Sera ging 02/20/2021 3:53 PM CDT Impressions 02/20/2021 4:27 PM CDT FINDINGS/IMPRESSION: Lines and tubes: *Endotracheal tube terminates in mid thoracic trachea. *There is an NG/OG coursing below the diaphragm, terminus outside the [id number]. *There is a left subclavian approach central [...] is stable. Dictated by Rico Sawant DO (doctor of radiology). I, Dr. AFRICA HENRIQUEZ M.D. have personally [...] coursing below the diaphragm, terminus outside the [id number]-[id number]. *There is a left subclavian approach central [...] is stable. Dictated by Rico Sawant DO (doctor of radiology). IDr. AFRICA M.D. have personally reviewed and [...] below the diaphragm, the segments of the [id number]-[id number]. *There is a left subclavian approach central [...] is stable. Dictated by Phan Brothers MD (doctor of radiology). Dr. SUNITA Yao have personally reviewed and [...] below the diaphragm, the segments of the [id number]-[id number]. *There is a left subclavian approach central [...] is stable. Dictated by Phan Brothers MD (doctor of radiology). I, Dr. SUNITA BAILEY have personally reviewed and interpreted this examination/study. This report was electronically signed by SUNITA BAILEY on 13:06 PM . Fredy Felipe MD DIAGNOSTIC IMAGING O RDERABLES * BLOOD GASES ART + COOX PANEL (02/20/2021 3:[address] [facility]) pH Arterial 7.41 7.35 - 7.45 pH 02/20/2021 3:12 AM [facility] pO2 Arterial 88 80 - 100 mmHg 02/20/2021 3:12 AM [facility] pCO2 Arterial 41 35 - 45 mmHg 3:12 AM [facility] HCO3 Arterial 26 20 - 30 mmol/l 02/20/2021 3:12 AM [facility] BE Arterial 1.2 -2.0 - 2.0 mmol/L 02/20/2021 3:12 AM [facility] Oxyhemoglobin Arterial 96.0 % 02/20/2021 3:12 AM [facility] Dexoyhemoglobin (HHB) % 1.4 % 02/20/2021 3:12 AM [facility] Methemoglobin 0.9 0.0 - 2.0 % 02/20/2021 3:12 AM [facility] Carboxyhemoglobin 1.7 0.0 - 2.0 % 2020 3:12 AM [facility] O2 Content Arterial 18.7 [...] 02/20/2021 3:07 AM CDT 02/20/2021 3:10 AM [facility] - 02/20/2021 3:12 AM T Carboxyhemoglobin Normal Concentration: Non-smokers: 0-2%; Smokers: 0-9%; Toxic: >20% Delilah Stubbs PAD MACHINE OFFBEARER-C PADDED [employer]ODU[employer] INSPECTOR TRIMMER LAB - BLOOD GASES ORDERABLES [facility] [address] [place] [address], [facility] [phone] * (ABNORMAL) CBC W AUTO DIFFERENTIAL (02/19/2021 [...] 0.47 10? 3 /uL 02/19/2021 11:45 PM CDT [facility] Basophils Absolute 0.05 0.00 - 0.08 10? 3 /uL 02/19/2021 11:45 PM T [facility] Immature Granulocytes % 0.8 0.0 - 1.0 % 02/19/2021 11:45 PM T [facility] Immature Granulocytes Absolute 0.11 02/19/2021 11:45 PM [facility] Blood BLOOD SPECIMEN / Unknown Venipuncture / Unknown 02/19/2021 11:36 PM CDT 02/19/2021 11:41 PM CDT Fredy Felipe MD LAB - HEMATOLOGY ORD ERABLES [facility] [address] [place] [address], [facility] [phone] * BASIC METABOLIC PANEL (CALCIUM TOTAL) (02/19/2021 [...] Organization Address City/State/ZIP Co de Phone Number [facility] [address] [place] [address], [facility] [phone] * BLOOD GASES ART + COOX PANEL [...] - 100 % 02/19/2021 11:42 PM CDT [facility] FI O2 Arterial 50.0 % 02/19/2021 11:42 PM CDT [facility] Blood, arterial ARTERIAL BLOOD SPECIMEN / Unknown Arterial Puncture / Unknown 02/19/2021 11:36 PM CDT 02/19/2021 11:40 PM CDT Narrative [facility] - 02/19/2021 11:42 PM CDT Carboxyhemoglobin Normal Concentration: Non-smokers: 0-2%; Smokers: 0-9%; Toxic: >20% Freyd Felipe MD LAB - BLOOD GASES OR DERABLES Performing Organization Address [facility] Co de Phone Number [address] [address], [facility] [phone] * PT-INR [facility] (02/19/2021 11:36 PM CDT) PT 14.1 12.1 - 14.8 Seconds 02/19/2021 11:53 PM T [facility] INR 1.1 See Comment 02/19/2021 11:53 PM T [facility] Comment:The suggested therap eutic range for standard coumadin (warfarin) therapy is an INR of 2.0-3.0. For high-risk patients (Mechanical Mitral Valve Prosthesis, etc.), the suggested prophylactic therapeutic range is an INR of 2.5-3.5. Blood BLOOD SPECIMEN / Unknown Venipuncture / Unknown 02/19/2021 11:36 PM CDT 02/19/2021 11:44 PM CDT Fredy Felipe MD LAB - COAGULATION OR DERABLES Performing Organization Address [facility]/ZIP Co de Phone Number [address] [address], [facility] [phone] * PHOSPHORUS BLOOD (02/19/2021 11:36 PM CDT) Phosphorus 3.8 2.8 - 5.1 mg/dL 02/20/2021 12:08 AM CDT [facility] Blood BLOOD SPECIMEN / Unknown Venipuncture / Unknown 02/19/2021 11:36 PM CDT 02/19/2021 11:41 PM CDT Fredy Felipe MD LAB - CHEMISTRY [facility] [address] [address], [place] [phone] * MAGNESIUM BLOOD (02/19/2021 11:36 PM CDT) Magnesium 1.9 1.6 - 2.6 mg/dL 02/20/2021 12:08 AM CDT [facility] Blood BLOOD SPECIMEN / Unknown Venipuncture / Unknown 02/19/2021 11:36 PM CDT 02/19/2021 11:41 PM CDT Fredy Felipe MD LAB - CHEMISTRY [facility] Performing Organization Address City/[facility]/ZIP Co de Phone Number [address] [address], [place] [phone] * CALCIUM IONIZED WHOLE BLOOD (02/19/2021 11:36 PM CDT) Calcium Ionized 1.20 mmol/L 02/19/2021 11:43 PM CDT [facility] pH 7.43 7.35 - 7.45 pH 02/19/2021 11:43 PM CDT [facility] Ionized Calcium pH Adjusted 1.21 1.19 - 1.34 mmol/L 02/19/2021 11:43 PM CDT [facility] Blood BLOOD SPECIMEN / Unknown Venipuncture / Unknown 02/19/2021 11:36 PM CDT 02/19/2021 11:40 PM CDT Fredy Felipe MD LAB - CHEMISTRY [facility] [address] [address], [place] [phone] * XR CHEST 1VW PORTABLE (02/19/2021 5:10 [...] is normal. Dictated by Rico Sawant DO (doctor of radiology). I, Dr. NAOMY LAZO MD, [facility] have [...] is normal. Dictated by Rico Sawant DO (doctor of radiology). I, Dr. NAOMY LAZO MD, [facility] have personally reviewedand interpreted this examination/study. This report was electronically signed by NAOMY LAZO MD, [facility] on 02/20/2021 2:18 PM . Fredy [...] Dr. Carrion Dictated by Bety Rose MD (doctor of radiology). This report was approved ??by Bety Rose [...] Dr. Carrion Dictated by Bety Rose MD (doctor of radiology). This report was approved by Bety Rose on 02/20/2021 11:19 AM . I, Dr. JASWINDER CARRION have personally reviewed and interpreted this examination/study. This report was electronically signed by JASWINDER CARRION on02/20/2021 11:38 AM . Fredy Felipe MD MR ORDERABLES * TYPE + SCREEN PANEL (02/19/2021 7:27 AM CDT) Antibody Screen NEG 8:50 AM CDT [facility] ABO Rh O POS 02/19/2021 8:50 AM CDT [facility] Blood Bank BLOOD SPECIMEN / Unknown Venipuncture / Unknown 02/19/2021 7:27 AM CDT 02/19/2021 7:34 AM CDT Fredy Felipe MD LAB - BLOOD BANK ORD ERABLES [facility] [address] [place] [address], [facility] [phone] * XR CHEST 1VW PORTABLE (02/19/2021 5:26 [...] is normal. Dictated by Rico Sawant DO (doctor of radiology). Dr. OSWALDO Yao have personally reviewed and [...] is normal. Dictated by Rico Sawant DO (doctor of radiology). Dr. OSWALDO Yao have personally reviewed and interpreted this examination/study. This report was electronically signed by OSWALDO CLEMONS on 02/19/2021 3:43PM . Fredy Felipe MD DIAGNOSTIC IMAGING O RDERABLES * (ABNORMAL) CBC W AUTO DIFFERENTIAL (02/18/2021 11:[address] [facility]) WBC 11.9(H) 3.5 - 10.5 10? 3 [...] 5.0 - 13.0 % 02/18/2021 11:19 PM [facility] Eosinophils % 0.3 0.0 - 6.0 % 02/18/2021 11:19 PM [facility] Basophil % 0.2 0.0 - 2.0 % 02/18/2021 11:19 PM [facility] Neutrophils Absolute 9.4(H) 1.6 - 7.0 10? 3 /uL 02/18/2021 11:19 PM [facility] Lymphocyte Absolute 1.2 1.1 - 3.9 10? 3 /uL 02/18/2021 11:19 PM [facility] Monocytes Absolute 1.13(H) 0.26 - 1.07 [...] Felipe MD LAB - HEMATOLOGY ORD ERABLES [facility] [address] [place] [address], [facility] [phone] * (ABNORMAL) BASIC METABOLIC PANEL (CALCIUM TOTAL) (02/18/2021 11:03 PM CDT) BUN 9 7 - 26 mg/dL 02/18/2021 11:32 PM T [facility] Creatinine 0.75 0.71 - 1.16 mg/dL [...] VELA [facility] Organization Address City/State/[facility] Co de Phone Number [facility] [address] [place] [address] [phone] * (ABNORMAL) BLOOD GASES ART + COOX [...] 02/18/2021 11:03 PM T 02/18/2021 11:08 PM [facility] - 02/18/2021 11:[address] [facility] Carboxyhemoglobin Normal Concentration: Non-smokers: 0-2%; Smokers: 0-9%; Toxic: >20% Fredy Felipe MD LAB - BLOOD GASES OR DERABLES [facility] [address] [place] [address], [facility] [phone] * PT-INR [facility] (02/18/2021 11:[address] [facility]) PT 14.1 12.1 - 14.8 Seconds 02/18/2021 11:23 PM [facility] INR 1.1 See Comment 02/18/2021 11:23 PM CDT [facility] Comment:The suggested therap eutic range for standard coumadin (warfarin) therapy is an INR of 2.0-3.0. For high-risk patients (Mechanical Mitral Valve Prosthesis, etc.), the suggested prophylactic therapeutic range is an INR of 2.5-3.5. Blood BLOOD SPECIMEN / Unknown Venipuncture / Unknown 02/18/2021 11:03 PM CDT 02/18/2021 11:08 PM CDT Fredy Felipe MD LAB - COAGULATION OR DERABLES Performing Organization Address [facility]/ZIP Co de Phone Number [address] [address], [facility] [phone] * (ABNORMAL) PHOSPHORUS BLOOD (02/18/2021 11:03 PM CDT) Phosphorus 2.3(L) 2.8 - 5.1 mg/dL 02/18/2021 11:33 PM CDT [facility] Blood BLOOD SPECIMEN / Unknown Venipuncture / Unknown 02/18/2021 11:03 PM CDT 02/18/2021 11:08 PM CDT Fredy Felipe MD LAB - CHEMISTRY JOSE ENRIQUE VELA Performing Organization Address [facility] Co de Phone Number [address] [address], [facility] [phone] * MAGNESIUM BLOOD (02/18/2021 11:03 PM CDT) Magnesium 1.7 1.6 - 2.6 mg/dL 02/18/2021 11:32 PM CDT [facility] Blood BLOOD SPECIMEN / Unknown Venipuncture / Unknown 02/18/2021 11:03 PM CDT 02/18/2021 11:08 PM CDT Fredy Felipe MD LAB - CHEMISTRY JOSE ENRIQUE VELA Performing Organization Address City/[facility]/ZIP Co de Phone Number [address] [address], [facility] [phone] * (ABNORMAL) CALCIUM IONIZED WHOLE BLOOD (02/18/2021 11:03 PM CDT) Calcium Ionized 1.15 mmol/L 02/18/2021 11:10 PM CDT [facility] pH 7.45 7.35 - 7.45 pH 02/18/2021 11:10 PM CDT [facility] Ionized Calcium pH Adjusted 1.17(L) 1.19 - 1.34 mmol/L 02/18/2021 11:10 PM CDT [facility] Blood BLOOD SPECIMEN / Unknown Venipuncture / Unknown 02/18/2021 11:03 PM CDT 02/18/2021 11:08 PM CDT Fredy Felipe MD LAB - CHEMISTRY JOSE ENRIQUE VELA [facility] Organization Address City/State/ZIP Co de Phone Number [address] [address], [facility] [phone] * XR CHEST 1VW PORTABLE (02/18/2021 5:25 AM CDT) Anatomical Region Laterality Modality Chest Radiographic Sera ging 02/18/2021 2:01 PM CDT Impressions 02/18/2021 4:01 PM CDT IMPRESSION: 1.Support devices as above. 2.Bilateral pulmonary opacities redemonstrated. Report dictated by Simone Alexander MD, PhD (doctor of radiology). I, Dr. CHOCO JIN MD have personally [...] Report dictated by Simone Alexander MD, PhD (doctor of radiology). I, Dr. CHOCO JIN MD have personally [...] - HEMATOLOGY ORD ERABLES Performing Organization Address City/[facility] Co de Phone Number [facility] [address] [place] [address], [facility] [phone] * BASIC METABOLIC PANEL (CALCIUM TOTAL) (02/18/2021 [...] 02/18/2021 12:04 AM T 02/18/2021 12:[address] [facility] Fredy Felipe MD LAB - CHEMISTRY [facility] Organization Address City/State/ZIP Co de Phone Number [facility] [address] [place] [address], [facility] [phone] * (ABNORMAL) BLOOD GASES ART + COOX PANEL (02/18/2021 12:[address] [facility]) pH Arterial 7.40 7.35 - 7.45 pH [...] Arterial Puncture / Unknown 02/18/2021 12:[address] [facility] 02/18/2021 12:06 AM [facility] - 02/18/2021 12:[address] [facility] Carboxyhemoglobin Normal Concentration: Non-smokers: 0-2%; Smokers: 0-9%; Toxic: >20% Fredy Felipe MD LAB - BLOOD GASES OR DERABLES Performing Organization Address [facility]/State/ZIP Co de Phone Number [facility] [address] [place] [address] [phone] * PT-INR [facility] (02/18/2021 12:[address] [facility]) PT 14.3 12.1 - 14.8 Seconds 02/18/2021 [...] - COAGULATION OR DERABLES Performing Organization Address City/[facility]/ZIP Co de Phone Number [address] [address], [facility] [phone] * PHOSPHORUS BLOOD (02/18/2021 12:04 AM CDT) Phosphorus 3.4 2.8 - 5.1 mg/dL 02/18/2021 12:32 AM CDT [facility] Blood BLOOD SPECIMEN / Unknown Venipuncture / Unknown 02/18/2021 12:04 AM CDT 02/18/2021 12:08 AM CDT Fredy Felipe MD LAB - CHEMISTRY JOSE ENRIQUE VELA Performing Organization Address [facility] Co de Phone Number [address] [address], [facility] [phone] * MAGNESIUM BLOOD (02/18/2021 12:04 AM CDT) Magnesium 2.0 1.6 - 2.6 mg/dL 02/18/2021 12:32 AM CDT [facility] Blood BLOOD SPECIMEN / Unknown Venipuncture / Unknown 02/18/2021 12:04 AM CDT 02/18/2021 12:08 AM CDT Fredy Felipe MD LAB - CHEMISTRY JOSE ENRIQUE VELA Performing Organization Address [facility]/ZIP Co de Phone Number [address] [address], [facility] [phone] * (ABNORMAL) CALCIUM IONIZED WHOLE BLOOD (02/18/2021 12:04 AM CDT) Calcium Ionized 1.14 mmol/L 02/18/2021 12:12 AM CDT [facility] pH 7.41 7.35 - 7.45 pH 02/18/2021 12:12 AM CDT [facility] Ionized Calcium pH Adjusted 1.14(L) 1.19 - 1.34 mmol/L 02/18/2021 12:12 AM CDT [facility] Blood BLOOD SPECIMEN / Unknown Venipuncture / Unknown 02/18/2021 12:04 AM CDT 02/18/2021 12:06 AM CDT Fredy Felipe MD LAB - CHEMISTRY JOSE ENRIQUE VELA [facility] [address] [place] [address], [facility] [phone] * XR CHEST 1VW PORTABLE (02/17/2021 10:00 PM CDT) Anatomical Region Laterality Modality Chest Radiographic Sera ging 02/18/2021 9:45 AM CDT Impressions 02/18/2021 9:58 AM CDT IMPRESSION: 1.Support devices as above. 2.No pneumothorax. 3.Middle and lower lung zone atelectasis. Report dictated by Simone Alexander MD, PhD (doctor of radiology). I, Dr. NENA CLEMENTE have personally reviewed [...] Report dictated by Simone Alexander MD, PhD (doctor of radiology). I, Dr. NENA CLEMENTE have personally reviewed [...] the diaphragm with the terminus outside the [id number]. *Bilateral apically oriented thoracostomy tubes are reidentified. [...] on 02/17/2021. Dictated by Rico Sawant DO (doctor of radiology). I, Dr. OSWALDO CLEMONS have personally reviewed [...] below the diaphragm with the terminusoutside the [id number]. *Bilateral apically oriented thoracostomy tubes are reidentified. [...] on 02/17/2021. Dictated by Rico Sawant DO (doctor of radiology). I, Dr. OSWALDO CLEMONS have personally reviewed [...] Immature Granulocytes Absolute 0.12 02/17/2021 12:26 AM T [facility] Blood BLOOD SPECIMEN / Unknown Venipuncture / Unknown 02/17/2021 12:13 AM CDT 02/17/2021 12:19 AM CDT Fredy Felipe MD LAB - HEMATOLOGY ORD ERABLES Performing Organization Address [facility] de Phone Number [address] [address], [facility] [phone] * (ABNORMAL) PT-INR [facility] (02/17/2021 12:13 AM CDT) PT 14.9(H) 12.1 - 14.8 Seconds 02/17/2021 12:33 AM CDT [facility] INR 1.2 See Comment 02/17/2021 12:33 AM [facility] Comment:The suggested therap eutic range for standard coumadin (warfarin) therapy is an INR of 2.0-3.0. For high-risk patients (Mechanical Mitral Valve Prosthesis, etc.), the suggested prophylactic therapeutic range is an INR of 2.5-3.5. Blood BLOOD SPECIMEN / Unknown Venipuncture / Unknown 02/17/2021 12:13 AM CDT 02/17/2021 12:25 AM CDT Fredy Felipe MD LAB - COAGULATION OR DERABLES Performing Organization Address [facility] Co de Phone Number [address] [address], [facility] [phone] * (ABNORMAL) BASIC METABOLIC PANEL (CALCIUM TOTAL) (02/17/2021 12:12 AM CDT) BUN 9 7 - 26 mg/dL 02/17/2021 12:43 AM T [facility] Creatinine 0.82 0.71 - 1.16 mg/dL 02/17/2021 12:43 AM T [facility] Sodium 140 136 - 145 mmol/L 02/17/2021 12:43 AM [facility] Potassium 4.1 3.5 - 4.5 mmol/L [...] Fredy Felipe MD LAB - CHEMISTRY ORDNolan EVLA Performing Organization Address City/[facility]/ZIP Co de Phone Number [address] [address], [facility] [phone] * PHOSPHORUS BLOOD (02/17/2021 12:12 AM CDT) Phosphorus 3.5 2.8 - 5.1 mg/dL 02/17/2021 12:43 AM T [facility] Blood BLOOD SPECIMEN / Unknown Venipuncture / Unknown 02/17/2021 12:12 AM CDT 02/17/2021 12:19 AM CDT Fredy Felipe MD LAB - CHEMISTRY JOSE ENRIQUE VELA [address] [address], [facility] [phone] * MAGNESIUM BLOOD (02/17/2021 12:12 AM CDT) Magnesium 1.9 1.6 - 2.6 mg/dL 02/17/2021 12:43 AM CDT [facility] Blood BLOOD SPECIMEN / Unknown Venipuncture / Unknown 02/17/2021 12:12 AM CDT 02/17/2021 12:19 AM CDT Fredy Felipe MD LAB - CHEMISTRY JOSE ENRIQUE VELA [address] [address], [facility] [phone] * CALCIUM IONIZED WHOLE BLOOD (02/17/2021 12:12 AM CDT) Pathologist [facility] Calcium Ionized 1.18 mmol/L 02/17/2021 12:21 AM CDT [facility] pH 7.43 7.35 - 7.45 pH 02/17/2021 12:21 AM CDT [facility] Ionized Calcium pH Adjusted 1.19 1.19 - 1.34 mmol/L 02/17/2021 12:21 AM CDT [facility] Blood BLOOD SPECIMEN / Unknown Venipuncture / Unknown 02/17/2021 12:12 AM CDT 02/17/2021 12:18 AM CDT Fredy Felipe MD LAB - CHEMISTRY JOSE ENRIQUE VELA [facility] [address] [place] [address], [facility] [phone] * (ABNORMAL) BLOOD GASES ART + COOX PANEL (02/17/2021 12:12 AM CDT) pH Arterial 7.46(H) 7.35 - 7.45 pH 02/17/2021 12:22 AM CDT [facility] pO2 Arterial 108(H) 80 - 100 mmHg 02/17/2021 12:22 AM CDT [facility] pCO2 Arterial 40 35 - 45 [...] 02/17/2021 12:12 AM CDT 02/17/2021 12:18 AM [facility] - 02/17/2021 12:[address] [facility] Carboxyhemoglobin Normal Concentration: Non-smokers: 0-2%; Smokers: 0-9%; Toxic: >20% Fredy Felipe MD LAB - BLOOD GASES OR DERABLES [address] [address], [facility] [phone] * CT HEAD WO CONTRAST (02/16/2021 3:00 [...] mucosal disease. Dictated by Uyen Garcia MD (doctor of radiology). I, Dr. JUNE MADRID have personally reviewed [...] mucosal disease. Dictated by Uyen Garcia MD (doctor of radiology). Dr. JUNE Yao have personally reviewed and [...] courses to the stomach out of the [id number]. Chest wall and lower neck subcutaneous emphysema is decreased from prior study. Pneumomediastinum is decreased from prior study. Mild left basilar atelectasis is unchanged. Pleural effusion may contribute to opacity. There is no pneumothorax. The cardiomediastinal silhouette is partially obscured. Dictated by Alverto Ames MD (doctor of radiology). Dr. EULA Yao have personally reviewed and [...] courses to the stomach out of the [id number]. Chest wall and lower neck subcutaneous emphysema is decreased from prior study. Pneumomediastinum is decreased from prior study. Mild left basilar atelectasis is unchanged. Pleural effusion may contribute to opacity. There is no pneumothorax. The cardiomediastinal silhouette is partially obscured. Dictated by Alverto Ames MD (doctor of radiology). I, Dr. EULA GONZALEZ have personally reviewed and interpreted this examination/study. This report was electronically signed by EULA GONZALEZ on 02/16/2021 12:26 PM . Fredy Felipe MD DIAGNOSTIC IMAGING O RDERABLES * (ABNORMAL) DIFFERENTIAL MANUAL (02/15/2021 10:34 PM CDT) WBC (corrected for NRBC) 24.3 10? 3 /uL 02/15/2021 11:58 PM CDT [facility] Total Cell Count 100 02/16/20 21 11:58 PM [facility] Neutrophils Absolute Manual 22.36(H) 1.60 - 7.00 10? 3 /uL 02/15/2021 11:58 PM T [facility] Comment:(BANDS+SEGS) x WBC = NEUT # (ANC) Lymphocyte Absolute Manual 0.49(L) 1.10 - 3.90 10? 3 /uL 02/15/2021 11:58 PM [facility] Monocytes Absolute Manual 1.46(H) 0.26 - [...] Felipe MD LAB - HEMATOLOGY ORD ERABLES [facility] [address] [place] [address] [phone] * PT-INR [facility] (02/15/2021 10:34 PM CDT) PT 14.6 [...] Felipe MD LAB - COAGULATION OR DERABLES [address] [address], [place] [phone] * PHOSPHORUS BLOOD (02/15/2021 10:34 PM CDT) Phosphorus 4.0 2.8 - 5.1 mg/dL 02/15/2021 11:17 PM CDT [facility] Blood BLOOD SPECIMEN / Unknown Venipuncture / Unknown 02/15/2021 10:34 PM CDT 02/15/2021 10:50 PM CDT Fredy Felipe MD LAB - CHEMISTRY JOSE ENRIQUE VELA Performing Organization Address City/[facility]/ZIP Co de Phone Number [address] [address], [place] [phone] * MAGNESIUM BLOOD (02/15/2021 10:34 PM CDT) Magnesium 1.8 1.6 - 2.6 mg/dL 02/15/2021 11:17 PM CDT [facility] Blood BLOOD SPECIMEN / Unknown Venipuncture / Unknown 02/15/2021 10:34 PM CDT 02/15/2021 10:50 PM CDT Fredy Felipe MD LAB - CHEMISTRY JOSE ENRIQUE VELA Performing Organization Address City/[facility]/ZIP Co de Phone Number [address] [address], [place] [phone] * (ABNORMAL) BASIC METABOLIC PANEL (CALCIUM TOTAL) (02/15/2021 10:34 PM CDT) BUN 9 7 - 26 mg/dL 02/15/2021 11:17 PM CDT [facility] Creatinine 0.90 0.71 - 1.16 mg/dL 02/15/2021 11:17 PM CDT [facility] Sodium 144 136 - 145 mmol/L 02/15/2021 11:17 PM CDT [facility] Potassium 4.0 3.5 - 4.5 mmol/L 02/15/2021 11:17 PM [facility] Chloride 106 98 - 107 [...] Organization Address City/State/ZIP Co de Phone Number [facility] [address] [place] [address], [facility] [phone] * (ABNORMAL) BLOOD GASES ART + COOX [...] Oxyhemoglobin Arterial 93.4 % 02/15/2021 10:50 PM [facility] Dexoyhemoglobin (HHB) % 3.9 % 02/15/2021 10:50 PM [facility] Methemoglobin <0.8 0.0 - 2.0 % 02/15/2021 10:50 PM [facility] Carboxyhemoglobin 2.0 0.0 - 2.0 % 2020 10:50 PM [facility] O2 Content Arterial 18.8 [...] 10:34 PM CDT 02/15/2021 10:45 PM CDT [facility] - 02/15/2021 10:50 PM CDT Carboxyhemoglobin Normal Concentration: Non-smokers: 0-2%; Smokers: 0-9%; Toxic: >20% Fredy Felipe MD LAB - BLOOD GASES OR DERABLES Performing Organization Address [facility]/State/[facility] Co de Phone Number [facility] [address] [place] [phone] [phone] * (ABNORMAL) CBC W AUTO DIFFERENTIAL (02/15/2021 10:34 PM CDT) WBC 24.3(H) 3.5 - 10.5 10? 3 /uL 02/15/2021 10:57 PM [facility] RBC 4.98 4.30 - 5.70 10? 6 /uL 02/15/2021 10:57 PM [facility] Hemoglobin 13.8 12.0 - [...] Felipe MD LAB - HEMATOLOGY ORD ERABLES [facility] [address] [place] [address], [facility] [phone] * (ABNORMAL) CALCIUM IONIZED WHOLE BLOOD (02/15/2021 [...] VELA [facility] Organization Address City/[facility]/ZIP Co de Phone Number [facility] [address] [place] [address], [facility] [phone] * (ABNORMAL) BLOOD GASES ART + COOX [...] 90 - 100 % 02/15/2021 10:47 AM CDT [facility] FI O2 Arterial 50.0 % 02/15/2021 10:47 AM CDT [facility] Blood, arterial ARTERIAL BLOOD SPECIMEN / Unknown Arterial Puncture / Unknown 02/15/2021 10:41 AM CDT 02/15/2021 10:45 AM CDT Narrative [facility] - 02/15/2021 10:47 AM CDT Carboxyhemoglobin Normal Concentration: Non-smokers: 0-2%; Smokers: 0-9%; Toxic: >20% Fredy Felipe MD LAB - BLOOD GASES OR DERABLES Performing Organization Address City/[facility]/ZIP Co de Phone Number [address] [address], [place] [phone] * (ABNORMAL) CALCIUM IONIZED WHOLE BLOOD (02/15/2021 10:41 AM CDT) Calcium Ionized 1.19 mmol/L 02/15/2021 10:47 AM [facility] pH 7.46(H) 7.35 - 7.45 pH 02/15/2021 10:47 AM T [facility] Ionized Calcium pH Adjusted 1.22 1.19 - 1.34 mmol/L 02/15/2021 10:47 AM T [facility] Blood BLOOD SPECIMEN / Unknown Venipuncture / Unknown 02/15/2021 10:41 AM CDT 02/15/2021 10:44 AM CDT Fredy Felipe MD LAB - CHEMISTRY ORDE RABLES [address] [address], [place] [phone] * (ABNORMAL) DIFFERENTIAL MANUAL (02/15/2021 10:40 AM CDT) WBC (corrected for NRBC) 35.7 10? 3 /uL 02/15/2021 11:39 AM CDT [facility] Total Cell Count 100 02/15/2021 11:39 AM T [facility] Neutrophils Absolute Manual 33.56(H) 1.60 - [...] - HEMATOLOGY ORD ERABLES Performing Organization Address City/State/[facility] Co de Phone Number [facility] [address] [place] [address], [facility] [phone] * (ABNORMAL) PHOSPHORUS BLOOD (02/15/2021 10:40 AM CDT) Phosphorus 2.4(L) 2.8 - 5.1 mg/dL 02/15/2021 11:14 AM [facility] Blood BLOOD SPECIMEN / Unknown Venipuncture / Unknown 02/15/2021 10:40 AM CDT 02/15/2021 10:48 AM CDT Fredy Felipe MD LAB - CHEMISTRY ORDE RABLES [facility] [address] [place] [address], [place] [phone] * MAGNESIUM BLOOD (02/15/2021 10:40 AM CDT) Magnesium 1.8 1.6 - 2.6 mg/dL 02/15/2021 11:14 AM T [facility] Blood BLOOD SPECIMEN / Unknown Venipuncture / Unknown 02/15/2021 10:40 AM CDT 02/15/2021 10:48 AM CDT Fredy Felipe MD LAB - CHEMISTRY JOSE ENRIQUE VELA Performing Organization Address City/[facility]/ZIP Co de Phone Number [facility] [address] [place] [address], [facility] [phone] * (ABNORMAL) CBC W AUTO DIFFERENTIAL (02/15/2021 10:40 AM CDT) Pathologist [facility] WBC 35.7(H) 3.5 - 10.5 10? 3 [...] Felipe MD LAB - HEMATOLOGY ORD ERABLES [address] [address], [facility] [phone] * (ABNORMAL) COMPREHENSIVE METABOLIC PANEL (02/15/2021 10:40 [...] VELA [facility] Organization Address City/State/[facility] Co de Phone Number [facility] [address] [place] [address], [facility] [phone] * TEG 6 GLOBAL HEMOSTASIS W/ LYSIS (02/15/2021 8:[address] [facility]) Citrated Kaolin R (Reaction Time) 7.0 4.6 - 9.1 min 02/15/2021 9:28 AM [facility] Citrated Kaolin LY30 (Lysis) 0.6 0.0 - 2.6 % 02/15/2021 9:28 AM CDT [facility] Citrated RapidTEG MA (Max Amplitude) 65 52 - 70 mm 02/15/2021 9:28 AM T [facility] Citrated Functional Fibrinogen MA (Max Amplitude) 23 15 - 32 mm 02/15/2021 9:28 AM T [facility] Blood BLOOD SPECIMEN / Unknown Venipuncture / Unknown 02/15/2021 8:14 AM CDT 02/15/2021 8:20 AM CDT Fredy Felipe MD LAB - HEMATOLOGY ORD ERABLES [facility] [address] [place] [address], [facility] [phone] * (ABNORMAL) TEG 6S PLATELET MAPPING (02/15/2021 8:14 AM CDT) TEGPLM (Max Amplitude) Koalin 64 53 - 68 mm 02/15/2021 9:13 AM [facility] TEGPLM (Max Amplitude) ACTF 14 2 - 19 mm 02/15/2021 9:13 AM [facility] TEGPLM (Max Amplitude) ADP 15(L) 45 - 69 mm 02/15/2021 9:13 AM [facility] TEGPLM (Max Amplitude) AA 64 51 - 71 mm 02/15/2021 9:13 AM [facility] TEGPLM %Inhibition ADP 99(H) 0 - 17 % 02/15/2021 9:13 AM [facility] TEGPLM %Inhibition AA 1 0 - 11 % 02/15/2021 9:13 AM [facility] TEGPLM %Aggregation ADP 1(L) 83 - 100 % 02/15/2021 9:13 AM [facility] TEGPLM % Aggregation AA 99 89 - 100 % 02/15/2021 9:13 AM [facility] Blood BLOOD SPECIMEN / Unknown Venipuncture / Unknown 02/15/2021 8:14 AM CDT 02/15/2021 8:20 AM CDT Fredy Felipe MD LAB - HEMATOLOGY ORD ERABLES [facility] [address] [place] [address], [facility] [phone] * XR CHEST 1VW PORTABLE (02/15/2021 7:15 [...] findings above. Dictated by Rico Sawant DO (doctor of radiology). I, Dr. EULA GONZALEZ have personally reviewed [...] findings above. Dictated by Rico Sawant DO (doctor of radiology). I, Dr. EULA GONZALEZ have personally reviewed and interpreted this examination/study. This report was electronically signed by EULA GONZALEZ on 02/15/2021 7:28 PM . Fredy Felipe MD DIAGNOSTIC IMAGING O RDERABLES * (ABNORMAL) URINALYSIS W/MICROSCOPIC NO CULTURE (02/15/2021 6:46 AM CDT) Color UA Yellow Straw, Yellow 02/15/2021 7:10 AM [facility] Clarity UA Slt Cloudy(A) Clear 02/15/2021 7:10 AM [facility] Specific [place] UA 1.014 1.005 - 1.030 02/15/2021 7:10 AM [facility] pH UA 6.0 5.0 - 8.0 pH 02/15/2021 7:10 AM [facility] Protein UA 2+(A) Negative 02/15/2021 7:10 AM [facility] Glucose UA 3+(A) Negative 02/15/2021 7:10 AM [facility] Ketone UA Trace(A) Negative 02/15/2021 7:10 AM [facility] Bilirubin UA Negative Negative 02/15/2021 7:10 AM [facility] Blood UA Negative Negative 02/15/2021 7:10 AM [facility] Nitrite UA Negative Negative 02/15/2021 7:10 AM [facility] Leukocyte Esterase Negative Negative 02/15/2021 7:10 AM [facility] Urobilinogen UA Negative Negative mg/dL 02/15/2021 7:10 AM [facility] RBC UA 3-5 None Seen, 0-2, [...] 6:46 AM CDT 02/15/2021 6:49 AM CDT [facility] - 02/15/2021 7:10 AM CDT Fredy Felipe MD LAB - URINALYSIS ORD ERABLES [address] [address], [facility] [phone] * (ABNORMAL) URINE DRUG SCREEN IMMUNOASSAY (02/15/2021 6:46 AM T) Pathologist [facility] Amphetamines Screen Urine Negative Negative : < [...] Negative : <50 ng/mL 02/15/2021 7:18 AM [facility] Comment:Positive urine canna binoids (THC) screening results should be confirmed by another generally accepted non-immunological method such as gas chromatography or mass spectrometry. Methadone Screen Urine Negative Negative : < 300 ng/mL 02/15/2021 7:18 AM CDT [facility] Fentanyl Screen Urine Positive(A) Negative : <1.0 ng/mL 02/15/2021 7:18 AM [facility] Comment:Positive urine fenta nyl screening results should be confirmed by another generally accepted non-immunological method such as gas chromatography or mass spectrometry. Urine URINE / Unknown Collection / Unknown 02/15/2021 6:46 AM CDT 02/15/2021 6:54 AM CDT [facility] - 02/15/2021 7:18 AM CDT The Urine Toxicology Screening Panel does not screen for Propoxyphene, Meprobamate, Carisoprodol, Trazodone, eozd-hfh-gktqjbe medications and/or volatiles (Acetone, Isopropanol, Methanol or Ethylene Glycol). Ethanol, Salicylate, Acetaminophen, Tricyclic Antidepressants and several therapeutic drugs may be individually assayed in serum or plasma specimen. Toxicology testing by the [facility] is an aid to medical diagnosis and treatment of patients. No documented chain of custody was maintained. Results are intended to be used for clinical purposes only. ? Fredy Felipe MD LAB - URINE CHEMISTR Y ORDERABLES Performing Organization Address City/[facility]/ZIP Co de Phone Number [facility] [address] [facility] [place] [address], [facility] [phone] * SARS-COV-2 (COVID-19) INTERNAL (02/15/2021 6:44 AM CDT) COVID-19 PCR Not detected Not detected 02/15/2021 1:54 PM CDT [facility] Microbiology SPECIMEN FROM NASOPHARYNGEAL STRUCTURE / Unknown Collection / Unknown 02/15/2021 6:44 AM CDT 02/15/2021 6:47 AM CDT Narrative [facility] - 02/15/2021 1:54 PM CDT This nucleic acid amplification assay performance was validated by [facility]. This test has [...] Felipe MD LAB - MICROBIOLOGY O RDERABLES [facility] [address] [place] [address], [facility] [phone] * PTT [facility] (02/15/2021 6:42 AM CDT) APTT 26.9 23.0 - 38.4 Seconds 02/15/2021 7:40 AM [facility] Comment:Suggested therapeuti c range for full dose I.V. unfractionated heparin therapy for venous thromboembolism is 71 to 109 seconds. Blood BLOOD SPECIMEN / Unknown Venipuncture / Unknown 02/15/2021 6:42 AM CDT 02/15/2021 6:48 AM CDT Fredy Felipe MD LAB - COAGULATION OR DERABLES Performing Organization Address [facility] Co de Phone Number [facility] [address] [place] [address], [facility] [phone] * (ABNORMAL) DIFFERENTIAL MANUAL (02/15/2021 6:42 AM [...] Estimate Adequate Adequate 02/15/2021 7:58 AM CDT [facility] RBC Morphology Normal 02/15/2021 7:58 AM CDT [facility] Blood BLOOD SPECIMEN / Unknown Venipuncture / Unknown 02/15/2021 6:42 AM CDT 02/15/2021 6:49 AM CDT Fredy Felipe MD LAB - HEMATOLOGY ORD TERESA Performing Organization Address [facility]/ZIP Co de Phone Number [address] [address], [facility] [phone] * (ABNORMAL) CALCIUM IONIZED WHOLE BLOOD (02/15/2021 6:42 AM CDT) Calcium Ionized 0.99 mmol/L 02/15/2021 6:52 AM CDT [facility] pH 7.30(L) 7.35 - 7.45 pH 02/15/2021 6:52 AM CDT [facility] Ionized Calcium pH Adjusted 0.95(L) 1.19 - 1.34 mmol/L 02/15/2021 6:52 AM CDT [facility] Blood BLOOD SPECIMEN / Unknown Venipuncture / Unknown 02/15/2021 6:42 AM CDT 02/15/2021 6:48 AM CDT Fredy Felipe MD LAB - CHEMISTRY JOSE ENRIQUE VELA Performing Organization Address [facility] Co de Phone Number [address] [address], [facility] [phone] * (ABNORMAL) LACTIC ACID BLOOD (02/15/2021 6:42 AM CDT) Lactic Acid-Stat 6.9(HH) <=2.0 mmol/L 02/15/2021 7:21 AM CDT [facility] Blood BLOOD SPECIMEN / Unknown Venipuncture / Unknown 02/15/2021 6:42 AM CDT 02/15/2021 6:49 AM CDT Fredy Felipe MD LAB - CHEMISTRY JOSE ENRIQUE VELA Performing Organization Address City/State/[facility] Co de Phone Number [facility] [address] [place] [address], [facility] [phone] * PT-INR [facility] (02/15/2021 6:42 AM CDT) Pathologist [facility] PT 13.8 12.1 - 14.8 Seconds 02/15/2021 7:07 AM CDT [facility] INR 1.1 See Comment 02/15/2021 7:07 [...] - COAGULATION OR DERABLES Performing Organization Address [facility]/ZIP Co de Phone Number [address] [address], [facility] [phone] * (ABNORMAL) BLOOD GASES ART + COOX [...] % 0.2 % 02/15/2021 6:52 AM CDT [facility] Methemoglobin 0.9 0.0 - 2.0 % 02/15/2021 6:52 AM T [facility] Carboxyhemoglobin 2.5(H) 0.0 - 2.0 % 2020 6:52 AM T [facility] O2 Content Arterial 20.6 Interpret within clinical context mg/dL 02/15/2021 6:52 AM T [facility] Hemoglobin by COOX 14.9 12.0 - 17.6 g/dL 02/15/2021 6:52 AM T [facility] O2 Saturation Arterial 100 90 - 100 % 02/15/2021 6:52 AM T [facility] FI O2 Arterial 100.0 % 02/15/2021 6:52 AM T [facility] Blood, arterial ARTERIAL BLOOD SPECIMEN / Unknown Arterial Puncture / Unknown 02/15/2021 6:42 AM CDT 02/15/2021 6:48 AM CDT Narrative [facility] - 02/15/2021 6:52 AM CDT Carboxyhemoglobin Normal Concentration: Non-smokers: 0-2%; Smokers: 0-9%; Toxic: >20% Fredy Felipe MD LAB - BLOOD GASES OR DERABLES [address] [address], [facility] [phone] * (ABNORMAL) PHOSPHORUS BLOOD (02/15/2021 6:42 AM CDT) Phosphorus 6.7(H) 2.8 - 5.1 mg/dL 02/15/2021 7:19 AM CDT [facility] Blood BLOOD SPECIMEN / Unknown Venipuncture / Unknown 02/15/2021 6:42 AM CDT 02/15/2021 6:50 AM CDT Fredy Felipe MD LAB - CHEMISTRY JOSE ENRIQUE VELA [address] [address], [facility] [phone] * MAGNESIUM BLOOD (02/15/2021 6:42 AM CDT) Magnesium 2.0 1.6 - 2.6 mg/dL 02/15/2021 7:19 AM [facility] Blood BLOOD SPECIMEN / Unknown Venipuncture / Unknown 02/15/2021 6:42 AM CDT 02/15/2021 6:50 AM CDT Fredy Felipe MD LAB - CHEMISTRY JOSE ENRIQUE VELA [facility] Organization Address City/State/ZIP Co de Phone Number [facility] [address] [place] [address], [facility] [phone] * (ABNORMAL) BASIC METABOLIC PANEL (CALCIUM TOTAL) (02/15/2021 6:42 AM CDT) Pathologist [facility] BUN 9 7 - 26 mg/dL 02/15/2021 [...] Organization Address City/State/ZIP Co de Phone Number [facility] [address] [place] [address], [facility] [phone] * (ABNORMAL) CBC W AUTO DIFFERENTIAL (02/15/2021 [...] - 12.9 fL 02/15/2021 7:28 AM CDT [facility] nRBC Absolute 0.00 0 10? 3 /uL 02/15/2021 7:28 AM CDT [facility] nRBC Auto 0.0 0 /100 WBC 02/15/2021 7:28 AM CDT [facility] Blood BLOOD SPECIMEN / Unknown Venipuncture / Unknown 02/15/2021 6:42 AM CDT 02/15/2021 6:49 AM CDT Fredy Felipe MD LAB - HEMATOLOGY ORD ERABLES [facility] [address] [place] [address], [place] [phone] * BLOOD TYPE VERIFICATION (02/15/2021 6:42 AM CDT) ABO Rh O POS 02/15/2021 7:1 5 AM CDT [facility] Blood Bank BLOOD SPECIMEN / Unknown Venipuncture / Unknown 02/15/2021 6:42 AM CDT 02/15/2021 6:49 AM CDT Edith Calle MD LAB - BLOOD BANK ORD ERABLES [facility] [address] [place] [address], [place] [phone] * XR CHEST 1VW PORTABLE (02/15/2021 4:27 AM CDT) Anatomical Region Laterality Modality Chest Radiographic Sera ging 02/15/2021 4:41 AM CDT Impressions 02/15/2021 5:50 PM CDT FINDINGS/IMPRESSION: The right costophrenic angle is collimated. Low lung volumes. Lines and tubes: *An endotracheal tube terminates in the mid thoracic trachea. *The NG/OG seen coursing below the diaphragm, with its tip outside the [id number]. Linear airspace opacities are seen in the right upper and mid lung. Findings may be related to compressive atelectasis or pulmonary contusion in the post traumatic setting. There are linear bibasilar opacities, likely representing atelectasis or aspiration in the posttraumatic/post intubated setting. There is no left pleural effusion. No pneumothorax. The cardiomediastinal silhouette is normal. Dictated by Phan Brothers MD (doctor of radiology). Najma, Dr. EULA GONZALEZ have personally reviewed [...] the diaphragm, with its tip outside the [id number]-[id number]. Linear airspace opacities are seen in the right upper and mid lung. Findings may be related to compressive atelectasis or pulmonarycontusion in the post traumatic setting. There are linear bibasilar opacities, likely representing atelectasis or aspiration in the posttraumatic/post intubated setting. There is no left pleural effusion. No pneumothorax. The cardiomediastinal silhouette is normal. Dictated by Phan Brothers MD (doctor of radiology). Dr. EULA Yao have personally reviewed and [...] 4:32 AM. Dictated by Arlen Abbott MD (doctor of radiology). I, Dr. EULA GONZALEZ have personally reviewed [...] 4:32 AM. Dictated by Arlen Abbott MD (doctor of radiology). I, Dr. EULA GONZALEZ have personally reviewed and interpreted this examination/study. This report was electronically signed by EULA GONZALEZ on 02/15/2021 11:50 AM . Fredy Felipe MD DIAGNOSTIC IMAGING O RDERABLES * PATHOLOGY TISSUE (02/15/2021 3:57 AM CDT) Case Report Surgical Pathology Report ? Case: [id number] ? Authorizing Provider: ??Fredy Felipe MD ?Collected: ? 02/15/2021 03:57 AM ? Ordering Location: ? [facility] ?? Received: ?02/17/2021 05:03 [...] unremarkable folds and no masses or lesions. Co Teacher sections are submitted as follows: A1 resection margin, A2 opposite resection margin, A3 larger serosal hemorrhagic area, A4 smaller serosal hemorrhagic area, A5 uninvolved intestine. WM. 02/19/2021 10:15 AM CDT [facility] Disclaimer The performance characteristics of all immunohistochemical and indirect immunofluorescence stains (if any) cited in this report were determined by the Histopathology Laboratory of [facility]. Some of these tests were developed [...] Felipe MD LAB - PATHOLOGY/CYTO LOGY ORDERABLES [facility] [address] [place], [place] [address] [place] [address] * (ABNORMAL) BLOOD GAS+COOX+ELECTROLYTES+METAB ARTERIAL (02/15/2021 3:48 AM CDT) pH Arterial 7.08(LL) 7.35 - 7.45 pH 02/15/2021 3:59 AM [facility] pO2 Arterial 141(H) 80 - 100 [...] - 105 mg/dL 02/15/2021 3:59 AM CDT [facility] Lactic Acid Whole Blood 4.7(HH) <=2.0 mmol/L 02/15/2021 3:59 AM CDT [facility] Blood, arterial ARTERIAL BLOOD SPECIMEN / Unknown Arterial Puncture / Unknown 02/15/2021 3:48 AM CDT 02/15/2021 3:50 AM CDT Narrative [facility] - 02/15/2021 3:59 AM CDT Carboxyhemoglobin Normal Concentration: Non-smokers: 0-2%; Smokers: 0-9%; Toxic: >20% Edith Calle MD LAB - BLOOD GASES OR DERABLES [facility] [address] [place] [address], [facility] [phone] * XR CHEST 1VW PORTABLE (02/15/2021 3:10 AM CDT) Anatomical Region Laterality Modality Chest Radiographic Sera ging 02/15/2021 3:14 AM CDT Impressions 02/15/2021 5:51 PM CDT FINDINGS/IMPRESSION: There are low bilateral lung volumes associated bronchovascular crowding. There is no focal consolidation, pleural effusion, or pneumothorax. The cardiomediastinal silhouette is normal. The visible bony thorax is intact. Dictated by Phan Brothers MD (doctor of radiology). I, Dr. EULA GONZALEZ have personally reviewed [...] thorax isintact. Dictated by Phan Brothers MD (doctor of radiology). I, Dr. EULA GONZALEZ have personally reviewed and interpreted this examination/study. This report was electronically signed by EULA GONZALEZ on 02/15/2021 5:51 PM . Fredy Felipe MD DIAGNOSTIC IMAGING O RDERABLES * PTT [facility] (02/15/2021 3:08 AM CDT) [facility] APTT 23.5 23.0 - 38.4 Seconds 02/15/2021 3:33 AM CDT [facility] Comment:Suggested therapeuti c range for full dose I.V. unfractionated heparin therapy for venous thromboembolism is 71 to 109 seconds. Blood BLOOD SPECIMEN / Unknown Venipuncture / Unknown 02/15/2021 3:08 AM CDT 02/15/2021 3:14 AM CDT Fredy Felipe MD LAB - COAGULATION OR DERABLES Performing Organization Address City/[facility]/ZIP Co de Phone Number [facility] [address] [place] [phone], [place] [phone] * TYPE + SCREEN PANEL (02/15/2021 3:08 AM CDT) [facility] Antibody Screen NEG 4:06 AM CDT [facility] ABO Rh O POS 02/15/2021 4:06 AM CDT [facility] Blood Bank BLOOD SPECIMEN / Unknown Venipuncture /

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
--- OUTSIDE RECORDS SUMMARY | 2024-05-23 03:31 | XMS_ITS | Encounter Summary ---
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 (resident medical officer). Dr. NENA Yao have personally reviewed and [...] the diaphragm with the terminus outside the zwimd-ns-xlbg. *Bilateral apically oriented thoracostomy tubes are reidentified. [...] on 02/17/2021. Dictated by Rico Sawant DO (resident medical officer). I, Dr. OSWALDO CLEMONS have personally reviewed [...] mucosal disease. Dictated by Uyen Garcia MD (resident medical officer). IDr. JUNE have personally reviewed and interpreted [...] courses to the stomach out of the yiqpl-pq-ctib. Chest wall and lower neck subcutaneous emphysema is decreased from prior study. Pneumomediastinum is decreased from prior study. Mild left basilar atelectasis is unchanged. Pleural effusion may contribute to opacity. There is no pneumothorax. The cardiomediastinal silhouette is partially obscured. Dictated by Alverto Ames MD (resident medical officer). Dr. EULA Yao have personally reviewed and [...] findings above. Dictated by Rico Sawant DO (resident medical officer). Dr. EULA Yao have personally reviewed and [...] the diaphragm, with its tip outside the ymtnn-it-gnkj. Linear airspace opacities are seen in the right upper and mid lung. Findings may be related to compressive atelectasis or pulmonary contusion in the post traumatic setting. There are linear bibasilar opacities, likely representing atelectasis or aspiration in the posttraumatic/post intubated setting. There is no left pleural effusion. No pneumothorax. The cardiomediastinal silhouette is normal. Dictated by Phan Brothers MD (resident medical officer). Dr. EULA Yao have personally reviewed and [...] 4:32 AM. Dictated by Arlen Abbott MD (resident medical officer). Dr. EULA Yao have personally reviewed and [...] is intact. Dictated by Phan Brothers MD (resident medical officer). Najma, Dr. EULA GONZALEZ have personally reviewed [...] MD - 02/23/2021 6:23 AM CDT [facility] Trauma ICU Progress Note Admit: 02/15/2021 [...] 1, , Last Rate: 42.13 mL/hr at 02/22/215 PRN Medications: 0.9% NaCl, 1-10 mL, PRN [...] - CLINIMIX - DAY 1 Is&Os: 02/22 0701 - 02/23 07 In: 1358.1 [I.V.:1328.1] Out: 2980 [Urine:1230; Drains:1750] Date 02/22/21699 - 02/23/2159 02/23/21699 - 02/24/21 0659 Shift 7866-2686 6784-4772 24 Hour Total 6578-4190 4313-3950 24 Hour Total INTAKE I.V.(mL/kg/hr) 1328.1(0.7) 1328.1 Tube 30 30 Shift Total(mL/kg) 1328.1(8.3) 30(0.2) 1358.1(8.5) OUTPUT Urine(mL/kg/hr) 860(0.4) 370 1230 Drains 212 566 9309 Shift Total(mL/kg) 1785(11.1) 1195(7.5) 2980(18.6) NET -456.9 [...] Labs: CBC Recent Labs Component Name 02/23/21 00202/21/21 2312 02/20/21 2326 WBC 13.5* 14.5* 14.6* [...] ABG Recent Labs Component Name 02/23/212002/22/21 0317 02/21/212 PH 7.43 7.41 7.60* PO2 [...] fracture identified. Dictated by Rico Sawant D.O. (Outpatient Physical Therapist) Dr. CHOCO Yao MD have personally reviewed [...] are normal. Dictated by Rico Sawant DO (resident medical officer). Dr. AFRICA Yao M.D. have personally reviewed [...] coursing below the diaphragm, terminus outside the lefwk-jn-lwfe. *There is a left subclavian approach central [...] is stable. Dictated by Rico Sawant DO (resident medical officer). Dr. AFRICA Yao M.D. have personally reviewed [...] below the diaphragm, the segments of the uubln-mi-ymdy. *There is a left subclavian approach central [...] is stable. Dictated by Phan Brothers MD (resident medical officer). Dr. SUNITA Yao have personally reviewed and [...] is normal. Dictated by Rico Sawant DO (resident medical officer). I, Dr. NAOMY LAZO MD, FRCR have [...] Dr. Carrion Dictated by Bety Rose MD (resident medical officer). This report was approved by Bety Rose [...] is normal. Dictated by Rico Sawant DO (resident medical officer). Dr. OSWALDO Yao have personally reviewed and [...] Report dictated by Simone Alexander MD, PhD (resident medical officer). I, Dr. CHOCO JIN MD have personally [...] Report dictated by Simone Alexander MD, PhD (resident medical officer). I, Dr. NENA CLEMENTE have personally reviewed [...] the diaphragm with the terminus outside the lqpvm-zx-fmxv. *Bilateral apically oriented thoracostomy tubes are reidentified. [...] on 02/17/2021. Dictated by Rico Sawant DO (resident medical officer). I, Dr. OSWALDO CLEMONS have personally reviewed [...] mucosal disease. Dictated by Uyen Garcia MD (resident medical officer). Dr. JUNE Yao have personally reviewed and [...] courses to the stomach out of the xkfie-tc-xanr. Chest wall and lower neck subcutaneous emphysema is decreased from prior study. Pneumomediastinum is decreased from prior study. Mild left basilar atelectasis is unchanged. Pleural effusion may contribute to opacity. There is no pneumothorax. The cardiomediastinal silhouette is partially obscured. Dictated by Alverto Ames MD (resident medical officer). Dr. EULA Yao have personally reviewed and [...] findings above. Dictated by Rico Sawant DO (resident medical officer). Dr. EULA Yao have personally reviewed and [...] the diaphragm, with its tip outside the nzdfd-ir-rwnw. Linear airspace opacities are seen in the right upper and mid lung. Findings may be related to compressive atelectasis or pulmonary contusion in the post traumatic setting. There are linear bibasilar opacities, likely representing atelectasis or aspiration in the posttraumatic/post intubated setting. There is no left pleural effusion. No pneumothorax. The cardiomediastinal silhouette is normal. Dictated by Phan Brothers MD (resident medical officer). Dr. EULA Yao have personally reviewed and [...] 4:32 AM. Dictated by Arlen Abbott MD (resident medical officer). I, Dr. EULA GONZALEZ have personally reviewed [...] is intact. Dictated by Phan Brothers MD (resident medical officer). I, Dr. EULA GONZALEZ have personally reviewed [...] MD - 02/22/2021 5:14 AM CDT [facility] Trauma ICU Progress Note Admit: 02/15/2021 [...] Date 02/21/21699 - 02/22/2165802/22/21699 - 02/23/21658 Shift 9420-9899 3224-9943 24 Hour Total 4537-5105 8233-8536 24 Hour Total INTAKE I.V.(mL/kg/hr) 1643.3(0.9) 1709.9 [...] fracture identified. Dictated by Rico Sawant D.O. (Outpatient Physical Therapist) Dr. CHOCO Yao MD have personally reviewed [...] are normal. Dictated by Rico Sawant DO (resident medical officer). Dr. AFRICA Yao M.D. have personally reviewed [...] coursing below the diaphragm, terminus outside the ijwib-mc-pqgc. *There is a left subclavian approach central [...] is stable. Dictated by Rico Sawant DO (resident medical officer). Dr. AFRICA Yao M.D. have personally reviewed [...] below the diaphragm, the segments of the mdmzl-dg-dtcg. *There is a left subclavian approach central [...] is stable. Dictated by Phan Brothers MD (resident medical officer). Dr. SUNITA Yao have personally reviewed and [...] is normal. Dictated by Rico Sawant DO (resident medical officer). I, Dr. NAOMY LAZO MD, FRCR have [...] Dr. Carrion Dictated by Bety Rose MD (resident medical officer). This report was approved by Bety Rose [...] is normal. Dictated by Rico Sawant DO (resident medical officer). I, Dr. OSWALDO CLEMONS have personally reviewed [...] Report dictated by Simone Alexander MD, PhD (resident medical officer). I, Dr. CHOCO JIN MD have personally [...] Report dictated by Simone Alexander MD, PhD (resident medical officer). Dr. NENA Yao have personally reviewed and [...] the diaphragm with the terminus outside the yoxtm-ve-wbei. *Bilateral apically oriented thoracostomy tubes are reidentified. [...] on 02/17/2021. Dictated by Rico Sawant DO (resident medical officer). I, Dr. OSWALDO CLEMONS have personally reviewed [...] mucosal disease. Dictated by Uyen Garcia MD (resident medical officer). I, Dr. JUNE MADRID have personally reviewed [...] courses to the stomach out of the ojwui-ya-pupq. Chest wall and lower neck subcutaneous emphysema is decreased from prior study. Pneumomediastinum is decreased from prior study. Mild left basilar atelectasis is unchanged. Pleural effusion may contribute to opacity. There is no pneumothorax. The cardiomediastinal silhouette is partially obscured. Dictated by Alverto Ames MD (resident medical officer). Dr. EULA Yao have personally reviewed and [...] findings above. Dictated by Rico Sawant DO (resident medical officer). Dr. EULA Yao have personally reviewed and [...] the diaphragm, with its tip outside the ezypd-vm-ohap. Linear airspace opacities are seen in the right upper and mid lung. Findings may be related to compressive atelectasis or pulmonary contusion in the post traumatic setting. There are linear bibasilar opacities, likely representing atelectasis or aspiration in the posttraumatic/post intubated setting. There is no left pleural effusion. No pneumothorax. The cardiomediastinal silhouette is normal. Dictated by Phan Brothers MD (resident medical officer). Dr. EULA Yao have personally reviewed and [...] 4:32 AM. Dictated by Arlen Abbott MD (resident medical officer). Dr. EULA Yao have personally reviewed and [...] is intact. Dictated by Phan Brothers MD (resident medical officer). Dr. EULA Yao have personally reviewed and [...] clinical nutrition guidelines. Estimated Energy Needs: KCAL: 7163-3029 (11-14kcla/kg ABW) Protein (g): 129 (2.0g/kg IBW) Fluid (ml): 1 ml/kcal Needs based on: Kcal/kg- (Comment) (ibw 64.5kg ) Recommended Access Route: [id number] * Sonali Fraga MD - 02/21/2021 5:18 AM CDT [facility] Trauma ICU Progress Note Admit: 02/15/2021 [...] 02/20/21699 - 02/21/2165802/21/21699 - 02/22/21 0659 Shift 8267-5983 8162-3393 24 Hour Total 4827-1268 2186-7471 24 Hour Total INTAKE I.V.(mL/kg/hr) 1591.5(0.8) 1343 [...] 97 Coags Recent Labs Component Name 02/20/21232502/19/21233502/18/21 2303 02/15/21 2234 02/15/21 0642 02/15/21 0308 PT [...] coursing below the diaphragm, terminus outside the ylylo-zf-xgmi. *There is a left subclavian approach central [...] is stable. Dictated by Rico Sawant DO (resident medical officer). Dr. AFRICA Yao M.D. have personally reviewed [...] below the diaphragm, the segments of the skidv-on-fzph. *There is a left subclavian approach central [...] is stable. Dictated by Phan Brothers MD (resident medical officer). Dr. SUNITA Yao have personally reviewed and [...] is normal. Dictated by Rico Sawant DO (resident medical officer). I, Dr. NAOMY LAZO MD, FRCR have [...] Dr. Carrion Dictated by Bety Rose MD (resident medical officer). This report was approved by Bety Rose [...] is normal. Dictated by Rico Sawant DO (resident medical officer). I, Dr. OSWALDO CLEMONS have personally reviewed [...] pulmonary opacities redemonstrated. Report dictated by Simone Alxeander MD, PhD (resident medical officer). I, Dr. CHOCO JIN MD have personally [...] Report dictated by Simone Alexander MD, PhD (resident medical officer). IDr. NENA have personally reviewed and interpreted [...] the diaphragm with the terminus outside the fiako-ih-xdwi. *Bilateral apically oriented thoracostomy tubes are reidentified. [...] on 02/17/2021. Dictated by Rico Sawant DO (resident medical officer). Dr. OSWALDO Yao have personally reviewed and [...] mucosal disease. Dictated by Uyen Garcia MD (resident medical officer). IDr. JUNE have personally reviewed and interpreted [...] courses to the stomach out of the smzuq-ft-rpkr. Chest wall and lower neck subcutaneous emphysema is decreased from prior study. Pneumomediastinum is decreased from prior study. Mild left basilar atelectasis is unchanged. Pleural effusion may contribute to opacity. There is no pneumothorax. The cardiomediastinal silhouette is partially obscured. Dictated by Alverto Ames MD (resident medical officer). Dr. EULA Yao have personally reviewed and [...] findings above. Dictated by Rico Sawant DO (resident medical officer). Dr. EULA Yao have personally reviewed and [...] the diaphragm, with its tip outside the jylpe-qw-bxcx. Linear airspace opacities are seen in the right upper and mid lung. Findings may be related to compressive atelectasis or pulmonary contusion in the post traumatic setting. There are linear bibasilar opacities, likely representing atelectasis or aspiration in the posttraumatic/post intubated setting. There is no left pleural effusion. No pneumothorax. The cardiomediastinal silhouette is normal. Dictated by Phan Brothers MD (resident medical officer). Dr. EULA Yao have personally reviewed and [...] 4:32 AM. Dictated by Arlen Abbott MD (resident medical officer). Najma, Dr. EULA GONZALEZ have personally reviewed [...] is intact. Dictated by Phan Brothers MD (resident medical officer). Najma, Dr. EULA GONZALEZ have personally reviewed [...] call Noemi for changes. Sister Noemi Tyler [phone] Aunt Mainor [phone] Problem: Pain/Discomfort Goal: Patient exhibits reduced pain/discomfort [...] Mello MD - 02/20/2021 2:24 PM CDT [facility] Stroke Progress Note Jaime Tyler Age: [...] Sonia Donato - 02/20/2021 12:24 PM CDT General Claims Agent followed up with pt's mother to see if she would benefit from pastoral care support. Shira, pt's mother, communicated that she needed to call her daughter and did not need pastoral care visit at this time. General Claims Agent encouraged her to let her know if she would like a visit in the future. Pastoral care will continue to follow. Please have pastoral care contacted if a need/arises. 337 Sonia Tanmay 02/20/2021 12:26 PM * Alverto Godoy MD - 02/20/2021 11:37 AM CDT Patient seen and examined this AM. Discussed with trauma ICU team. Previous results, notes and imaging reviewed. OK to proceed to OR today for re- exploratory laparotomy, possible closure, possible abdominal wound vac. Alverto Godoy MD 02/20/2021 * Sonali Fraga MD - 02/20/2021 6:40 AM CDT [facility] Trauma ICU Progress Note Admit: 02/15/2021 [...] Out: 4060 [Urine:2125; Drains:1935] Date 02/19/21699 - 02/20/21 0659 02/20/21699 - 02/21/21 0659 Shift 5209-1582 8868-1235 24 Hour Total 4110-9249 6038-0729 24 Hour Total INTAKE I.V.(mL/kg/hr) 558.1(0.3) 2538.7 [...] ALKPHOS 97 Coags Recent Labs Component Name 02/19/2102/18/21 2303 02/18/21 0004 02/15/21 2234 02/15/21 0642 [...] is normal. Dictated by Rico Sawant DO (resident medical officer). I, Dr. OSWALDO CLEMONS have personally reviewed [...] Report dictated by Simone Alexander MD, PhD (resident medical officer). IDr. CHOCO MD have personally reviewed and [...] Report dictated by Simone Alexander MD, PhD (resident medical officer). IDr. NENA have personally reviewed and interpreted [...] the diaphragm with the terminus outside the hrrbt-js-wskf. *Bilateral apically oriented thoracostomy tubes are reidentified. [...] on 02/17/2021. Dictated by Rico Sawant DO (resident medical officer). I, Dr. OSWALDO CLEMONS have personally reviewed [...] mucosal disease. Dictated by Uyen Garcia MD (resident medical officer). IDr. JUNE have personally reviewed and interpreted [...] courses to the stomach out of the vuvpp-rv-rowj. Chest wall and lower neck subcutaneous emphysema is decreased from prior study. Pneumomediastinum is decreased from prior study. Mild left basilar atelectasis is unchanged. Pleural effusion may contribute to opacity. There is no pneumothorax. The cardiomediastinal silhouette is partially obscured. Dictated by Alverto Ames MD (resident medical officer). Dr. EULA Yao have personally reviewed and [...] findings above. Dictated by Rico Sawant DO (resident medical officer). Dr. EULA Yao have personally reviewed and [...] the diaphragm, with its tip outside the lnrta-cd-sicb. Linear airspace opacities are seen in the right upper and mid lung. Findings may be related to compressive atelectasis or pulmonary contusion in the post traumatic setting. There are linear bibasilar opacities, likely representing atelectasis or aspiration in the posttraumatic/post intubated setting. There is no left pleural effusion. No pneumothorax. The cardiomediastinal silhouette is normal. Dictated by Phan Brothers MD (resident medical officer). Dr. EULA Yao have personally reviewed and [...] 4:32 AM. Dictated by Arlen Abbott MD (resident medical officer). Dr. EULA Yao have personally reviewed and [...] is intact. Dictated by Phan Brothers MD (resident medical officer). Dr. EULA Yao have personally reviewed and [...] Frgaa MD - 02/19/2021 6:57 AM CDT [facility] Trauma ICU Progress Note Admit: 02/15/2021 [...] 0-1.5 mcg/kg/hr, Last Rate: 0.3 mcg/kg/hr (02/19/21 9403) fentanyl, 0-300 mcg/hr, Last Rate: 250 mcg/hr (02/19/21 0237) lactated ringers, , Last Rate: 125 mL/hr [...] NO EXCEPTIONS Is&Os: 02/18 701 - 02/19 07 In: 3353.5 [I.V.:3328.5] Out: 2487 [Urine:1775; Drains:712] Date 02/18/21699 - 02/19/2165802/19/21699 - 02/20/21 0659 Shift 5300-5374 2584-8788 24 Hour Total 9618-8934 7150-8601 24 Hour Total INTAKE I.V.(mL/kg/hr) 1339.2(0.7) 1988.3 [...] Report dictated by Simone Alexander MD, PhD (resident medical officer). I, Dr. CHOCO JIN MD have personally [...] Report dictated by Simone Alexander MD, PhD (resident medical officer). I, Dr. NENA CLEMENTE have personally reviewed [...] the diaphragm with the terminus outside the taowq-fs-qygd. *Bilateral apically oriented thoracostomy tubes are reidentified. [...] on 02/17/2021. Dictated by Rico Sawant DO (resident medical officer). I, Dr. OSWALDO CLEMONS have personally reviewed [...] mucosal disease. Dictated by Uyen Garcia MD (resident medical officer). Dr. JUNE Yao have personally reviewed and [...] courses to the stomach out of the kywdw-mr-grss. Chest wall and lower neck subcutaneous emphysema is decreased from prior study. Pneumomediastinum is decreased from prior study. Mild left basilar atelectasis is unchanged. Pleural effusion may contribute to opacity. There is no pneumothorax. The cardiomediastinal silhouette is partially obscured. Dictated by Alverto Ames MD (resident medical officer). Dr. EULA Yao have personally reviewed and [...] findings above. Dictated by Rico Sawant DO (resident medical officer). Dr. EULA Yao have personally reviewed and [...] the diaphragm, with its tip outside the gjbio-yl-uwrv. Linear airspace opacities are seen in the right upper and mid lung. Findings may be related to compressive atelectasis or pulmonary contusion in the post traumatic setting. There are linear bibasilar opacities, likely representing atelectasis or aspiration in the posttraumatic/post intubated setting. There is no left pleural effusion. No pneumothorax. The cardiomediastinal silhouette is normal. Dictated by Phan Brothers MD (resident medical officer). Dr. EULA Yao have personally reviewed and [...] 4:32 AM. Dictated by Arlen Abbott MD (resident medical officer). Dr. EULA Yao have personally reviewed and [...] is intact. Dictated by Phan Brothers MD (resident medical officer). Dr. EULA Yao have personally reviewed and [...] Sonia Donato - 02/18/2021 2:00 PM CDT General Claims Agent met with pt's aunt who was at bedside and provided empathetic support. She communicated how her and her family were still holding out for pt's full recovery and reflected on childhood memories of pt. General Claims Agent needed to attend to another pt, but [...] MD - 02/18/2021 7:33 AM CDT [facility] Trauma ICU Progress Note Admit: 02/15/2021 [...] 02/17/21699 - 02/18/2165802/18/21699 - 02/19/21 0659 Shift 7225-2834 9898-5103 24 Hour Total 8211-0386 1237-9932 24 Hour Total INTAKE I.V.(mL/kg/hr) 1973(1.4) 3198.7(1.7) [...] Labs Component Name 02/18/21 0004 02/17/212 02/15/212233 POTASSIUM 4.2 4.1 4.0 CO2 24 27 26 BUN 11 9 9 CREATININE 0.83 0.82 0.90 GLUCOSE 102 118* 118* CALCIUM 8.6 9.1 9.1 PHOS 3.4 3.5 4.0 LFTs Recent Labs Component Name 02/15/21 1040 AST 96* ALT 78* ALKPHOS 97 Coags Recent Labs Component Name 02/18/21 0004 02/17/213 02/15/21 2234 02/15/21 0642 02/15/21 0642 02/15/21 0308 PT 14.3 14.9* 14.6 - 13.8 - INR 1.1 1.2 1.2 - 1.1 - PTT - - - - 26.9 23.5 - = values in this interval not displayed. ABG Recent Labs Component Name 02/18/21 0004 02/17/212 02/15/214 PH 7.40 7.46* 7.48* PO2 126* 108* [...] the diaphragm with the terminus outside the rptpw-bx-fxpr. *Bilateral apically oriented thoracostomy tubes are reidentified. [...] on 02/17/2021. Dictated by Rico Sawant DO (resident medical officer). I, Dr. OSWALDO CLEMONS have personally reviewed [...] mucosal disease. Dictated by Uyen Garcia MD (resident medical officer). IDr. JUNE have personally reviewed and interpreted [...] courses to the stomach out of the ciaxp-vi-beur. Chest wall and lower neck subcutaneous emphysema is decreased from prior study. Pneumomediastinum is decreased from prior study. Mild left basilar atelectasis is unchanged. Pleural effusion may contribute to opacity. There is no pneumothorax. The cardiomediastinal silhouette is partially obscured. Dictated by Alverto Ames MD (resident medical officer). Dr. EULA Yao have personally reviewed and [...] findings above. Dictated by Rico Sawant DO (resident medical officer). Dr. EULA Yao have personally reviewed and [...] the diaphragm, with its tip outside the vjbcz-zi-botg. Linear airspace opacities are seen in the right upper and mid lung. Findings may be related to compressive atelectasis or pulmonary contusion in the post traumatic setting. There are linear bibasilar opacities, likely representing atelectasis or aspiration in the posttraumatic/post intubated setting. There is no left pleural effusion. No pneumothorax. The cardiomediastinal silhouette is normal. Dictated by Phan Brothers MD (resident medical officer). Dr. EULA Yao have personally reviewed and [...] 4:32 AM. Dictated by Arlen Abbott MD (resident medical officer). Dr. EULA Yao have personally reviewed and [...] is intact. Dictated by Phan Brothers MD (resident medical officer). I, Dr. EULA GONZALEZ have personally reviewed [...] MD - 02/17/2021 5:54 AM CDT [facility] Trauma ICU Progress Note Admit: 02/15/2021 [...] ringers, , Last Rate: 125 mL/hr at 02/16/215 niCARdipine, 0-15 mg/hr PRN Medications: 0.9% NaCl, [...] Date 02/16/21699 - 02/17/2165802/17/21699 - 02/18/2159 Shift 2357-0685 1013-3366 24 Hour Total 8948-4060 3897-4220 24 Hour Total INTAKE I.V.(mL/kg/hr) 1306.4(0.9) 1506 [...] 26.9 23.5 ABG Recent Labs Component Name 02/17/2111 02/15/21 2234 02/15/21 1041 PH 7.46* 7.48* [...] courses to the stomach out of the hyzjw-fu-lafz. Chest wall and lower neck subcutaneous emphysema is decreased from prior study. Pneumomediastinum is decreased from prior study. Mild left basilar atelectasis is unchanged. Pleural effusion may contribute to opacity. There is no pneumothorax. The cardiomediastinal silhouette is partially obscured. Dictated by Alverto Ames MD (resident medical officer). Dr. EULA Yao have personally reviewed and [...] findings above. Dictated by Rico Sawant DO (resident medical officer). Dr. EULA Yao have personally reviewed and [...] the diaphragm, with its tip outside the xrhux-fs-opca. Linear airspace opacities are seen in the right upper and mid lung. Findings may be related to compressive atelectasis or pulmonary contusion in the post traumatic setting. There are linear bibasilar opacities, likely representing atelectasis or aspiration in the posttraumatic/post intubated setting. There is no left pleural effusion. No pneumothorax. The cardiomediastinal silhouette is normal. Dictated by Phan Brothers MD (resident medical officer). Dr. EULA Yao have personally reviewed and [...] 4:32 AM. Dictated by Arlen Abbott MD (resident medical officer). Dr. EULA Yao have personally reviewed and [...] is intact. Dictated by Phan Brothers MD (resident medical officer). I, Dr. EULA GONZALEZ have personally reviewed [...] MD - 02/16/2021 7:08 PM CDT [facility] Trauma ICU Progress Note Admit: 02/15/2021 [...] 0-1.5 mcg/kg/hr, Last Rate: 0.2 mcg/kg/hr (02/16/21 0136) fentanyl, 0-300 mcg/hr, Last Rate: 75 mcg/hr (02/16/21 1897) lactated ringers, , Last Rate: 125 mL/hr [...] 4627 [Urine:4360; Drains:267] Date 02/15/211899 - 02/16/21 0602/16/21 07 - 02/17/21 0659 Shift 4315-4382 24 Hour Total 2533-5913 8977-7131 24 Hour Total INTAKE I.V.(mL/kg/hr) 1722.8 3125.2 [...] ?? Prophylaxis: SCDs ?? Lines: PIVx2, CL, [place], ETT, OG, Chest tube b/l, Gar, Abthera [...] assist Transportation at discharge: other Transportation (who): Temporary Administrative Assistant/Support: mother Shira Tyler [phone] Temporary Administrative Assistant person: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 Unknown Venipuncture / Unknown 03/10/2021 12:08 AM CDT 03/10/2021 12:23 AM CDT Fredy Felipe MD LAB - CHEMISTRY [facility] Performing Organization Address City/[facility]/ZIP Co de Phone Number [address] [address], [place] [phone] * PHOSPHORUS BLOOD (03/10/2021 12:08 AM CDT) Phosphorus 4.0 2.8 - 5.1 mg/dL 03/10/2021 12:46 AM CDT [facility] Blood BLOOD SPECIMEN / Unknown Venipuncture / Unknown 03/10/2021 12:08 AM CDT 03/10/2021 12:23 AM CDT Fredy Felipe MD LAB - CHEMISTRY JOSE ENRIQUE VELA Performing Organization Address [facility]/ZIP Co de Phone Number [address] [address], [place] [phone] * MAGNESIUM BLOOD (03/10/2021 12:08 AM CDT) Magnesium 2.2 1.6 - 2.6 mg/dL 03/10/2021 12:46 AM CDT [facility] Blood BLOOD SPECIMEN / Unknown Venipuncture / Unknown 03/10/2021 12:08 AM CDT 03/10/2021 12:23 AM CDT Fredy Felipe MD LAB - CHEMISTRY [facility] Performing Organization Address City/[facility]/ZIP Co de Phone Number [address] [address], [place] [phone] * VANCOMYCIN LEVEL RANDOM (03/09/2021 6:26 AM CDT) Vancomycin Random 19.6 Therapeutic Ranges not established for random specimens ug/mL 03/09/2021 6:56 AM CDT [facility] Blood BLOOD SPECIMEN / Unknown Venipuncture / Unknown 03/09/2021 6:26 AM CDT 03/09/2021 6:34 AM CDT Narrative [facility] - 03/09/2021 6:56 AM CDT See institution protocol. Fredy Felipe MD LAB - CHEMISTRY JOSE ENRIQUE Pena Organization Address City/State/ZIP Co de Phone Number [facility] [address] [place] [address], [facility] [phone] * XR CHEST 1VW PORTABLE (03/09/2021 6:08 [...] stable. Report dictated by Cyndi Carter MD (resident medical officer). I, Dr. NENA CLEMENTE have personally reviewed [...] stable. Report dictated by Cyndi Carter MD (resident medical officer). I, Dr. NENA CLEMENTE have personally reviewed and interpreted this examination/study. This report was electronically signed by NENA CLEMENTE on 03/09/2021 12:04 PM . Fredy Felipe MD DIAGNOSTIC IMAGING O RDERABLES * (ABNORMAL) DIFFERENTIAL MANUAL (03/09/2021 12:18 AM [facility]) WBC (corrected for NRBC) 24.1 10? 3 /uL 03/09/2021 2:04 AM [facility] Total Cell Count 100 03/09/20 2:04 AM [facility] Neutrophils Absolute Manual 19.76(H) 1.60 - 7.00 10? 3 /uL 03/09/2021 2:04 AM [facility] Comment:(BANDS+SEGS) x WBC = NEUT # (ANC) Lymphocyte Absolute Manual 1.69 1.10 - 3.90 10? 3 /uL 03/09/2021 2:04 AM [facility] Monocytes Absolute Manual 1.69(H) 0.26 - 1.07 10? 3 /uL 03/09/2021 2:04 AM [facility] Eosinophils Absolute Manual 0.72(H) 0.00 - 0.47 10? 3 /uL 03/09/2021 2:04 AM [facility] Neutrophil % Manual 82(H) 35 - 70 % 03/09/2021 2:04 AM [facility] Lymphocyte % Manual 7(L) 20 - 43 % 03/09/2021 2:04 AM [facility] Monocytes % Manual 7 5 - 13 % 03/09/2021 2:04 AM [facility] Eosinophils % Manual 3 0 - 6 % 03/09/2021 2:04 AM [facility] Metamyelocyte % Manual 1(H) 0 % 03/09/2021 2:04 AM [facility] Platelet Estimate Increased( A) Adequate 03/09/2021 2:04 AM [facility] RBC Morphology Normal 03/09/2021 2:04 AM [facility] Blood BLOOD SPECIMEN / Unknown Venipuncture / Unknown 03/09/2021 12:18 AM CDT 03/09/2021 12:28 AM CDT Fredy Felipe MD LAB - HEMATOLOGY ORD ERABLES Performing Organization Address [facility]/State/ZIP Co de Phone Number [facility] [address] [place] [address], [facility] [phone] * (ABNORMAL) CBC W AUTO DIFFERENTIAL (03/09/2021 12:18 AM CDT) WBC 24.1(H) 3.5 - 10.5 10? 3 /uL 03/09/2021 12:36 AM [facility] RBC 3.61(L) 4.30 - 5.70 10? 6 /uL 03/09/2021 12:36 AM [facility] Hemoglobin 9.8(L) 12.0 - 17.6 g/dL 03/09/2021 12:36 AM [facility] Hematocrit 31.0(L) 35.2 - 51.7 % 03/09/2021 12:36 AM [facility] MCV 85.9 80.7 - 98.3 fL 03/09/2021 12:36 AM [facility] MCH 27.1 26.7 - 34.0 pg 03/09/2021 12:36 AM [facility] MCHC 31.6 30.8 - 35.9 g/dL 03/09/2021 12:36 AM [facility] Platelet Count 541(H) 150 - 400 10? 3 /uL 03/09/2021 12:36 AM [facility] RDW-SD 43.3 36.0 - 50.0 fL 03/09/2021 12:36 AM [facility] RDW-CV 13.9 11.2 - 14.8 % 03/09/2021 12:36 AM [facility] MPV 9.5 9.4 - 12.9 fL 03/09/2021 12:36 AM [facility] nRBC Absolute 0.00 0 10? 3 /uL 03/09/2021 12:36 AM [facility] nRBC Auto 0.0 0 /100 WBC 03/09/2021 12:36 AM [facility] Blood BLOOD SPECIMEN / Unknown Venipuncture / Unknown 03/09/2021 12:18 AM CDT 03/09/2021 12:28 AM CDT Fredy Felipe MD LAB - HEMATOLOGY ORD ERABLES [facility] [address] [place] [address], [facility] [phone] * (ABNORMAL) BASIC METABOLIC PANEL (CALCIUM TOTAL) (03/09/2021 12:18 AM CDT) BUN 34(H) 7 - 26 mg/dL 03/09/2021 12:53 AM [facility] Creatinine 1.67(H) 0.71 - 1.16 mg/dL 03/09/2021 12:53 AM [facility] Sodium 145 136 - 145 mmol/L 03/09/2021 12:53 AM [facility] Potassium 4.4 3.5 - 4.5 mmol/L 03/09/2021 12:53 AM [facility] Chloride 114(H) 98 - 107 mmol/L 03/09/2021 12:53 AM [facility] CO2 18(L) 22 - 29 mmol/L 03/09/2021 12:53 AM [facility] Glucose 146(H) 70 - 115 mg/dL 03/09/2021 12:53 AM [facility] Calcium 9.0 8.4 - 10.2 mg/dL 03/09/2021 12:53 AM [facility] Anion Gap 17 8 - 18 03/09/2021 12:53 AM [facility] BUN/Creatinine Ratio 20 7 - 23 03/09/2021 12:53 AM [facility] Osmolality Calculated 310(H) 270 - 300 mOsm/kg 03/09/2021 12:53 AM [facility] eGFR by CKD-EPI 52(L) >=90 mL/min/1.7 3 m2 03/09/2021 12:53 AM [facility] Blood BLOOD SPECIMEN / Unknown Venipuncture / Unknown 03/09/2021 12:18 AM CDT 03/09/2021 12:28 AM T Fredy Felipe MD LAB - CHEMISTRY JOSE ENRIQUE Pena Organization Address City/State/ZIP Co de Phone Number [facility] [address] [place] [address], [facility] [phone] * (ABNORMAL) BLOOD GASES ART + COOX PANEL (03/09/2021 12:18 AM CDT) pH Arterial 7.47(H) 7.35 - 7.45 pH 03/09/2021 12:32 AM [facility] pO2 Arterial 94 80 - 100 mmHg 03/09/2021 12:32 AM [facility] pCO2 Arterial 27(L) 35 - 45 mmHg 12:32 AM [facility] HCO3 Arterial 20 20 - 30 mmol/l 03/09/2021 12:32 AM [facility] BE Arterial -2.9(L) -2.0 - 2.0 mmol/L 03/09/2021 12:32 AM [facility] Oxyhemoglobin Arterial 95.9 % 03/09/2021 12:32 AM [facility] Dexoyhemoglobin (HHB) % 1.0 % 03/09/2021 12:32 AM [facility] Methemoglobin 1.0 0.0 - 2.0 % 03/09/2021 12:32 AM [facility] Carboxyhemoglobin 2.2(H) 0.0 - 2.0 % 2020 12:32 AM [facility] O2 Content Arterial 15.1 Interpret within clinical context mg/dL 03/09/2021 12:32 AM [facility] Hemoglobin by COOX 11.1(L) 12.0 - 17.6 g/dL 03/09/2021 12:32 AM [facility] O2 Saturation Arterial 99 90 - 100 % 03/09/2021 12:32 AM [facility] FI O2 Arterial 21.0 % 03/09/2021 12:32 AM CDT [facility] Blood, arterial ARTERIAL BLOOD SPECIMEN / Unknown Arterial Puncture / Unknown 03/09/2021 12:18 AM CDT 03/09/2021 12:25 AM CDT Narrative [facility] - 03/09/2021 12:32 AM CDT Carboxyhemoglobin Normal Concentration: Non-smokers: 0-2%; Smokers: 0-9%; Toxic: >20% Fredy Felipe MD LAB - BLOOD GASES OR DERABLES Performing Organization Address City/[facility]/ZIP Co de Phone Number [address] [address], [place] [phone] * PHOSPHORUS BLOOD (03/09/2021 12:18 AM CDT) Phosphorus 3.7 2.8 - 5.1 mg/dL 03/09/2021 12:53 AM CDT [facility] Blood BLOOD SPECIMEN / Unknown Venipuncture / Unknown 03/09/2021 12:18 AM CDT 03/09/2021 12:28 AM CDT Fredy Felipe MD LAB - CHEMISTRY [facility] Performing Organization Address [facility] Co de Phone Number [address] [address], [place] [phone] * MAGNESIUM BLOOD (03/09/2021 12:18 AM CDT) Magnesium 2.3 1.6 - 2.6 mg/dL 03/09/2021 12:53 AM CDT [facility] Blood BLOOD SPECIMEN / Unknown Venipuncture / Unknown 03/09/2021 12:18 AM CDT 03/09/2021 12:28 AM CDT Fredy Felipe MD LAB - CHEMISTRY [facility] Performing Organization Address City/[facility]/ZIP Co de Phone Number [address] [address], [place] [phone] * (ABNORMAL) CALCIUM IONIZED WHOLE BLOOD (03/09/2021 [...] MD LAB - CHEMISTRY JOSE ENRIQUE VELA [address] [address], [place] [phone] * VANCOMYCIN LEVEL RANDOM (03/08/2021 5:30 PM CDT) Vancomycin Random 32.6 Therapeutic Ranges not established for random specimens ug/mL 03/08/2021 5:57 PM CDT [facility] Blood BLOOD SPECIMEN / Unknown Venipuncture / Unknown 03/08/2021 5:30 PM CDT 03/08/2021 5:36 PM CDT Narrative [facility] - 03/08/2021 5:57 PM CDT See institution protocol. Fredy Felipe MD LAB - CHEMISTRY [facility] [address] [address], [place] [phone] * XR CHEST 1VW PORTABLE (03/08/2021 5:50 [...] is stable. Dictated by Phan Brothers MD (resident medical officer). Dr. NENA Yao have personally reviewed and [...] is stable. Dictated by Phan Brothers MD (resident medical officer). Dr. NENA Yao have personally reviewed and interpreted this examination/study. This report was electronically signed by NENA CLEMENTE on 03/09/2021 11:30 AM . Fredy Felipe MD DIAGNOSTIC IMAGING O RDERABLES * (ABNORMAL) DIFFERENTIAL MANUAL (03/07/2021 11:57 PM CDT) WBC (corrected for NRBC) 22.8 10? 3 /uL 03/08/2021 2:26 AM CDT [facility] Total Cell Count 100 03/08/2021 2:26 AM [facility] Neutrophils Absolute Manual 18.24(H) 1.60 - 7.00 10? 3 /uL 03/08/2021 2:26 AM CDT [facility] Comment:(BANDS+SEGS) x WBC = NEUT # (ANC) Lymphocyte Absolute Manual 1.60 1.10 - 3.90 10? 3 /uL 03/08/2021 2:26 AM [facility] Monocytes Absolute Manual 1.60(H) 0.26 - 1.07 10? 3 /uL 03/08/2021 2:26 AM [facility] Eosinophils Absolute Manual 0.68(H) 0.00 - 0.47 10? 3 /uL 03/08/2021 2:26 AM [facility] Basophil Absolute Manual 0.23(H) 0.00 - 0.08 10? 3 /uL 03/08/2021 2:26 AM [facility] Neutrophil % Manual 80(H) 35 - 70 % 03/08/2021 2:26 AM [facility] Lymphocyte % Manual 7(L) 20 - 43 % 03/08/2021 2:26 AM [facility] Monocytes % Manual 7 5 - 13 % 03/08/2021 2:26 AM [facility] Eosinophils % Manual 3 0 - 6 % 03/08/2021 2:26 AM [facility] Basophils % Manual 1 0 - 2 % 03/08/2021 2:26 AM [facility] Atypical Lymphocyte % Manual 2(H) 0 % 03/08/2021 2:26 AM [facility] Platelet Estimate Adequate Adequate 03/08/2021 2:26 AM [facility] RBC Morphology Normal 03/08/2021 2:26 AM [facility] Blood BLOOD SPECIMEN / Unknown Venipuncture / Unknown 03/07/2021 11:57 PM CDT 03/08/2021 12:23 AM CDT Fredy Felipe MD LAB - HEMATOLOGY ORD ERABLES [facility] [address] [place] [address], [facility] [phone] * (ABNORMAL) VANCOMYCIN LEVEL TROUGH (03/07/2021 11:57 PM CDT) Vancomycin Trough 22.7(H) 10.0 - 20.0 ug/mL 03/08/2021 12:47 AM [facility] Blood BLOOD SPECIMEN / Unknown Venipuncture / Unknown 03/07/2021 11:57 PM CDT 03/08/2021 12:23 AM CDT [facility] - 03/08/2021 12:47 AM CDT See institution protocol. Fredy Felipe MD LAB - CHEMISTRY JOSE ENRIQUE Pena Organization Address City/State/ZIP Co de Phone Number [facility] [address] [place] [address] [phone] * (ABNORMAL) CBC W AUTO DIFFERENTIAL (03/07/2021 11:57 PM CDT) WBC 22.8(H) 3.5 - 10.5 10? 3 /uL 03/08/2021 12:29 AM [facility] RBC 3.55(L) 4.30 - 5.70 10? 6 /uL 03/08/2021 12:29 AM [facility] Hemoglobin 9.7(L) 12.0 - 17.6 g/dL 03/08/2021 12:29 AM [facility] Hematocrit 30.4(L) 35.2 - 51.7 % 03/08/2021 12:29 AM [facility] MCV 85.6 80.7 - 98.3 fL 03/08/2021 12:29 AM [facility] MCH 27.3 26.7 - 34.0 pg 03/08/2021 12:29 AM [facility] MCHC 31.9 30.8 - 35.9 g/dL 03/08/2021 12:29 AM [facility] Platelet Count 535(H) 150 - 400 10? 3 /uL 03/08/2021 12:29 AM [facility] RDW-SD 43.0 36.0 - 50.0 fL 03/08/2021 12:29 AM [facility] RDW-CV 13.6 11.2 - 14.8 % 03/08/2021 12:29 AM [facility] MPV 9.4 9.4 - 12.9 fL 03/08/2021 12:29 AM [facility] nRBC Absolute 0.00 0 10? 3 /uL 03/08/2021 12:29 AM [facility] nRBC Auto 0.0 0 /100 WBC 03/08/2021 12:29 AM [facility] Blood BLOOD SPECIMEN / Unknown Venipuncture / Unknown 03/07/2021 11:57 PM CDT 03/08/2021 12:23 AM CDT Fredy Felipe MD LAB - HEMATOLOGY ORD ERABLES [facility] [address] [place] [address], [facility] [phone] * (ABNORMAL) BASIC METABOLIC PANEL (CALCIUM TOTAL) (03/07/2021 11:57 PM CDT) BUN 35(H) 7 - 26 mg/dL 03/08/2021 12:49 AM [facility] Creatinine 1.60(H) 0.71 - 1.16 mg/dL 03/08/2021 12:49 AM [facility] Sodium 144 136 - 145 mmol/L 03/08/2021 12:49 AM [facility] Potassium 4.0 3.5 - 4.5 mmol/L 03/08/2021 12:49 AM [facility] Chloride 113(H) 98 - 107 mmol/L 03/08/2021 12:49 AM [facility] CO2 20(L) 22 - 29 mmol/L 03/08/2021 12:49 AM [facility] Glucose 132(H) 70 - 115 mg/dL 03/08/2021 12:49 AM [facility] Calcium 9.1 8.4 - 10.2 mg/dL 03/08/2021 12:49 AM [facility] Anion Gap 15 8 - 18 03/08/2021 12:49 AM [facility] BUN/Creatinine Ratio 22 7 - 23 03/08/2021 12:49 AM [facility] Osmolality Calculated 308(H) 270 - 300 mOsm/kg 03/08/2021 12:49 AM [facility] eGFR by CKD-EPI 55(L) >=90 mL/min/1.7 3 m2 03/08/2021 12:49 AM [facility] Blood BLOOD SPECIMEN / Unknown Venipuncture / Unknown 03/07/2021 11:57 PM CDT 03/08/2021 12:23 AM CDT Fredy Felipe MD LAB - CHEMISTRY JOSE ENRIQUE VELA [facility] Organization Address City/State/ZIP Co de Phone Number [facility] [address] [place] [address], [facility] [phone] * (ABNORMAL) BLOOD GASES ART + COOX PANEL (03/07/2021 11:57 PM CDT) pH Arterial 7.50(H) 7.35 - 7.45 pH 03/08/2021 12:17 AM [facility] pO2 Arterial 183(H) 80 - 100 mmHg 03/08/2021 12:17 AM [facility] pCO2 Arterial 25(L) 35 - 45 mmHg 12:17 AM [facility] HCO3 Arterial 20 20 - 30 mmol/l 03/08/2021 12:17 AM [facility] BE Arterial -2.6(L) -2.0 - 2.0 mmol/L 03/08/2021 12:17 AM [facility] Oxyhemoglobin Arterial 96.5 % 03/08/2021 12:17 AM [facility] Dexoyhemoglobin (HHB) % 0.0 % 03/08/2021 12:17 AM [facility] Methemoglobin 1.1 0.0 - 2.0 % 03/08/2021 12:17 AM [facility] Carboxyhemoglobin 2.4(H) 0.0 - 2.0 % 2020 12:17 AM [facility] O2 Content Arterial 14.5 Interpret within clinical context mg/dL 03/08/2021 12:17 AM [facility] Hemoglobin by COOX 10.4(L) 12.0 - 17.6 g/dL 03/08/2021 12:17 AM CDT [facility] O2 Saturation Arterial 100 90 - 100 % 03/08/2021 12:17 AM T [facility] FI O2 Arterial 21.0 % 03/08/2021 12:17 AM T [facility] Blood, arterial ARTERIAL BLOOD SPECIMEN / Unknown Arterial Puncture / Unknown 03/07/2021 11:57 PM CDT 03/08/2021 12:11 AM CDT Narrative [facility] - 03/08/2021 12:17 AM CDT Carboxyhemoglobin Normal Concentration: Non-smokers: 0-2%; Smokers: 0-9%; Toxic: >20% Fredy Felipe MD LAB - BLOOD GASES OR DERABLES Performing Organization Address City/[facility] Co de Phone Number [address] [address], [facility] [phone] * (ABNORMAL) PT-INR [facility] (03/07/2021 11:57 PM CDT) PT 16.5(H) 12.1 - 14.8 Seconds 03/08/2021 12:37 AM T [facility] INR 1.4 See Comment 03/08/2021 12:37 AM T [facility] Comment:The suggested therap [...] - COAGULATION OR DERABLES Performing Organization Address [facility]/ZIP Co de Phone Number [address] [address], [place] [phone] * PHOSPHORUS BLOOD (03/07/2021 11:57 PM CDT) Phosphorus 3.0 2.8 - 5.1 mg/dL 03/08/2021 12:50 AM CDT [facility] Blood BLOOD SPECIMEN / Unknown Venipuncture / Unknown 03/07/2021 11:57 PM CDT 03/08/2021 12:23 AM CDT Fredy Felipe MD LAB - CHEMISTRY JOSE ENRIQUE VELA [address] [address], [facility] [phone] * MAGNESIUM BLOOD (03/07/2021 11:57 PM CDT) Magnesium 2.1 1.6 - 2.6 mg/dL 03/08/2021 12:50 AM CDT [facility] Blood BLOOD SPECIMEN / Unknown Venipuncture / Unknown 03/07/2021 11:57 PM CDT 03/08/2021 12:23 AM CDT Fredy Felipe MD LAB - CHEMISTRY JOSE ENRIQUE VELA Performing Organization Address [facility]/ZIP Co de Phone Number [address] [address], [facility] [phone] * (ABNORMAL) CALCIUM IONIZED WHOLE BLOOD (03/07/2021 [...] MD LAB - CHEMISTRY JOSE ENRIQUE VELA [address] [address] [phone] * XR CHEST 1VW PORTABLE (03/07/2021 4:51 [...] signed by NAOMY LAZO MD, KATHLEEN ??on 03/07/2021 2:51 PM . Narrative 03/07/2021 [...] report was electronically signed by NAOMY LAZO MD [place] on 03/07/2021 2:51 PM . Fredy Felipe MD DIAGNOSTIC IMAGING O RDERABLES * (ABNORMAL) CULTURE ANAEROBE (03/07/2021 2:41 AM CDT) Culture Heavy Prevotella bivia(A) [place] 03/11/2021 9:14 AM CDT [facility] Comment:Beta-lactamase posit elvira Microbiology ABDOMINAL ABSCESS / Unknown Collection / Unknown 03/07/2021 2:41 AM CDT 03/07/2021 2:45 AM CDT Dino Hudson PA-C LAB - MICROBIOLOG Y ORDERABLES Performing Organization Address City/[facility]/ZIP Co de Phone Number [facility] [address] [place] [address], [facility] [phone] * CULTURE FUNGUS OTHER+FUNGUS SMEAR (03/07/2021 2:41 AM CDT) Culture No fungus isolated [place] 03/31/2021 9:21 AM UNIT CLERK [facility] Fungus Stain No yeast or hyphae seen 03/31/2021 9:21 AM UNIT CLERK [facility] Microbiology ABDOMINAL ABSCESS / Unknown Collection / Unknown 03/07/2021 2:41 AM CDT 03/07/2021 2:45 AM CDT Dino Hudson PA-C LAB - MICROBIOLOG Y ORDERABLES Performing Organization Address City/[facility]/ZIP Co de Phone Number [facility] [address] [place] [address], [facility] [phone] * (ABNORMAL) CULTURE WOUND+GRAM STAIN (03/07/2021 2:41 AM CDT) Culture Heavy Staphylococcus lugdunensis(A) [place] 03/10/2021 7:16 AM CDT [facility] Culture Heavy Klebsiella (formerly Enterobacter) aerogenes(A) [place] 03/10/2021 7:16 AM CDT [facility] Culture Heavy Staphylococcus epidermidis(A) 03/10/2021 7:16 AM CDT [facility] Gram Stain Light Polymorphonuclear cells 03/10/2021 7:16 AM CDT [facility] Gram Stain Light Gram-positive cocci in clusters 03/10/2021 7:16 AM T [facility]CRO[facility] Gram Stain Moderate Gram-positive cocci pairs and chains 03/10/2021 7:[address] [facility]CRO[facility] Microbiology ABDOMINAL ABSCESS / Unknown Collection / Unknown 03/07/2021 2:41 AM CDT 03/07/2021 2:45 AM CDT Narrative [facility] - 03/10/2021 7:16 AM CDT [...] Trimethoprim-sulfamethoxa zole [place] <=20 ug/mL: Susceptible Dino Hernandez Tristan ANDERSON LAB - MICROBIOLOG Y ORDERABLES [facility] [address] [place], [place] [address], [facility] [phone] * (ABNORMAL) BLOOD GASES ART + COOX PANEL (03/07/2021 12:29 AM [facility]) pH Arterial 7.51(H) 7.35 - 7.45 pH 03/07/2021 12:41 AM [facility] pO2 Arterial 161(H) 80 - 100 mmHg 03/07/2021 12:41 AM [facility] pCO2 Arterial 21(L) 35 - 45 mmHg 12:41 AM [facility] HCO3 Arterial 17(L) 20 - 30 mmol/l 03/07/2021 12:41 AM [facility] BE Arterial -4.5(L) -2.0 - 2.0 mmol/L 03/07/2021 12:41 AM [facility] Oxyhemoglobin Arterial 97.0 % 03/07/2021 12:41 AM [facility] Dexoyhemoglobin (HHB) % 0.1 % 03/07/2021 12:41 AM [facility] Methemoglobin 1.1 0.0 - 2.0 % 03/07/2021 12:41 AM [facility] Carboxyhemoglobin 1.8 0.0 - 2.0 % 2020 12:41 AM [facility] O2 Content Arterial 15.6 Interpret within clinical context mg/dL 03/07/2021 12:41 AM [facility] Hemoglobin by COOX 11.2(L) 12.0 - 17.6 g/dL 03/07/2021 12:41 AM [facility] O2 Saturation Arterial 100 90 - 100 % 03/07/2021 12:41 AM [facility] FI O2 Arterial 40.0 % 03/07/2021 12:41 AM CDT [facility] Blood, arterial ARTERIAL BLOOD SPECIMEN / Unknown Arterial Puncture / Unknown 03/07/2021 12:29 AM CDT 03/07/2021 12:38 AM CDT Narrative [facility] - 03/07/2021 12:41 AM CDT Carboxyhemoglobin Normal Concentration: Non-smokers: 0-2%; Smokers: 0-9%; Toxic: >20% Fredy Felipe MD LAB - BLOOD GASES OR DERABLES [facility] [address] [place] [id number], [facility] [phone] * (ABNORMAL) CALCIUM IONIZED WHOLE BLOOD (03/07/2021 12:29 AM CDT) Pathologist [facility] Calcium Ionized 1.20 mmol/L 03/07/2021 12:41 AM [facility] [facility] pH 7.51(H) 7.35 - 7.45 pH 03/07/2021 12:41 AM T [facility] Ionized Calcium pH Adjusted 1.26 1.19 - 1.34 mmol/L 03/07/2021 12:41 AM T [facility] Blood BLOOD SPECIMEN / Unknown Venipuncture / Unknown 03/07/2021 12:29 AM CDT 03/07/2021 12:38 AM CDT Fredy Felipe MD LAB - CHEMISTRY ORDNolan VELA [facility] [address] [place] [phone], [facility] [phone] * (ABNORMAL) HEPATIC FUNCTION PANEL (03/06/2021 11:52 PM CDT) Protein Total 7.4 6.0 - 8.3 g/dL 5:57 AM T [facility] Albumin 1.7(L) 3.4 - 5.0 g/dL 03/07/2021 5:57 AM [facility] Bilirubin Total 0.9 0.2 - 1.2 mg/dL 02/15 5:57 AM [facility] Bilirubin Conjugated 0.7(H) 0.1 - 0.5 mg/dL 03/07/2021 5:57 AM [facility] Bilirubin Unconjugated 0.2 Unconjugated Bilirubin is a calculated value: Reference ranges have not been established. mg/dL 03/07/2021 5:57 AM [facility] Alkaline Phosphatase 302(H) 40 - 150 U/L 03/07/2021 5:57 AM [facility] ALT 80(H) 5 - 55 U/L 03/07/2021 5:57 AM [facility] AST 86(H) 5 - 34 U/L 03/07/2021 5:57 AM [facility] Albumin/Globulin Ratio 0.3(L) 1.1 - 2.3 03/07/2021 5:57 AM [facility] Blood BLOOD SPECIMEN / Unknown Venipuncture / Unknown 03/06/2021 11:52 PM CDT 03/06/2021 11:56 PM CDT Fredy Felipe MD LAB - CHEMISTRY JOSE ENRIQUE [facility] Organization Address City/State/[facility] Co de Phone Number [facility] [address] [place] [phone], [facility] [phone] * (ABNORMAL) DIFFERENTIAL MANUAL (03/06/2021 11:52 PM CDT) WBC (corrected for NRBC) 22.9 10? 3 /uL 03/07/2021 1:27 AM [facility] Total Cell Count 100 03/07/2021 1:27 AM [facility] Neutrophils Absolute Manual 18.78(H) 1.60 - 7.00 10? 3 /uL 03/07/2021 1:27 AM [facility] Comment:(BANDS+SEGS) x WBC = NEUT # (ANC) Lymphocyte Absolute Manual 1.60 1.10 - 3.90 10? 3 /uL 03/07/2021 1:27 AM [facility] Monocytes Absolute Manual 2.06(H) 0.26 - 1.07 10? 3 /uL 03/07/2021 1:27 AM [facility] Eosinophils Absolute Manual 0.23 0.00 - 0.47 10? 3 /uL 03/07/2021 1:27 AM [facility] Basophil Absolute Manual 0.23(H) 0.00 - 0.08 10? 3 /uL 03/07/2021 1:27 AM [facility] Neutrophil % Manual 82(H) 35 - 70 % 03/07/2021 1:27 AM [facility] Lymphocyte % Manual 7(L) 20 - 43 % 03/07/2021 1:27 AM [facility] Monocytes % Manual 9 5 - 13 % 03/07/2021 1:27 AM [facility] Eosinophils % Manual 1 0 - 6 % 03/07/2021 1:27 AM [facility] Basophils % Manual 1 0 - 2 % 03/07/2021 1:27 AM [facility] Platelet Estimate Increased( A) Adequate 03/07/2021 1:27 AM [facility] RBC Morphology Normal 03/07/2021 1:27 AM [facility] Blood BLOOD SPECIMEN / Unknown Venipuncture / Unknown 03/06/2021 11:52 PM CDT 03/06/2021 11:56 PM CDT Fredy Felipe MD LAB - HEMATOLOGY ORD ERABLES Performing Organization Address [facility] Co de Phone Number [address] [address] [phone] * (ABNORMAL) CBC W AUTO DIFFERENTIAL (03/06/2021 11:52 PM CDT) WBC 22.9(H) 3.5 - 10.5 10? 3 /uL 03/07/2021 12:08 AM [facility] RBC 3.88(L) 4.30 - 5.70 10? 6 /uL 03/07/2021 12:08 AM [facility] Hemoglobin 10.3(L) 12.0 - 17.6 g/dL 03/07/2021 12:08 AM [facility] Hematocrit 33.4(L) 35.2 - 51.7 % 03/07/2021 12:08 AM [facility] MCV 86.1 80.7 - 98.3 fL 03/07/2021 12:08 AM [facility] MCH 26.5(L) 26.7 - 34.0 pg 03/07/2021 12:08 AM [facility] MCHC 30.8 30.8 - 35.9 g/dL 03/07/2021 12:08 AM [facility] Platelet Count 598(H) 150 - 400 10? 3 /uL 03/07/2021 12:08 AM [facility] Comment:Checked by periphera l smear. RDW-SD 43.4 36.0 - 50.0 fL 03/07/2021 12:08 AM [facility] RDW-CV 13.8 11.2 - 14.8 % 03/07/2021 12:08 AM [facility] MPV 9.1(L) 9.4 - 12.9 fL 03/07/2021 12:08 AM [facility] nRBC Absolute 0.00 0 10? 3 /uL 03/07/2021 12:08 AM [facility] nRBC Auto 0.0 0 /100 WBC 03/07/2021 12:08 AM [facility] Immature Platelet Fraction 0.9(L) 1.1 - 6.2 % 03/07/2021 12:08 AM [facility] Blood BLOOD SPECIMEN / Unknown Venipuncture / Unknown 03/06/2021 11:52 PM CDT 03/06/2021 11:56 PM CDT Fredy Felipe MD LAB - HEMATOLOGY ORD ERABLES [facility] [address] [place] [address], [facility] [phone] * (ABNORMAL) BASIC METABOLIC PANEL (CALCIUM TOTAL) (03/06/2021 11:52 PM CDT) BUN 36(H) 7 - 26 mg/dL 03/07/2021 12:18 AM [facility] Creatinine 1.45(H) 0.71 - 1.16 mg/dL 03/07/2021 12:18 AM [facility] Sodium 141 136 - 145 mmol/L 03/07/2021 12:18 AM [facility] Potassium 4.0 3.5 - 4.5 mmol/L 03/07/2021 12:18 AM [facility] Chloride 111(H) 98 - 107 mmol/L 03/07/2021 12:18 AM [facility] CO2 17(L) 22 - 29 mmol/L 03/07/2021 12:18 AM [facility] Glucose 112 70 - 115 mg/dL 03/07/2021 12:18 AM [facility] Calcium 8.7 8.4 - 10.2 mg/dL 03/07/2021 12:18 AM [facility] Anion Gap 17 8 - 18 03/07/2021 12:18 AM [facility] BUN/Creatinine Ratio 25(H) 7 - 23 03/07/2021 12:18 AM [facility] Osmolality Calculated 301(H) 270 - 300 mOsm/kg 03/07/2021 12:18 AM [facility] eGFR by CKD-EPI 62(L) >=90 mL/min/1.7 3 m2 03/07/2021 12:18 AM [facility] Blood BLOOD SPECIMEN / Unknown Venipuncture / Unknown 03/06/2021 11:52 PM CDT 03/06/2021 11:56 PM CDT Fredy Felipe MD LAB - CHEMISTRY JOSE ENRIQUE [facility] Organization Address City/State/ZIP Co de Phone Number [facility] [address] [place] [address], [facility] [phone] * (ABNORMAL) PT-INR [facility] (03/06/2021 11:52 PM CDT) PT 15.2(H) 12.1 - 14.8 Seconds 03/07/2021 12:08 AM CDT [facility] INR 1.2 See Comment 03/07/2021 12:08 AM CDT [facility] Comment:The suggested therap [...] - COAGULATION OR DERABLES Performing Organization Address [facility]/ZIP Co de Phone Number [address] [address], [facility] [phone] * PHOSPHORUS BLOOD (03/06/2021 11:52 PM CDT) Phosphorus 3.1 2.8 - 5.1 mg/dL 03/07/2021 12:18 AM CDT [facility] Blood BLOOD SPECIMEN / Unknown Venipuncture / Unknown 03/06/2021 11:52 PM CDT 03/06/2021 11:56 PM CDT Fredy Felipe MD LAB - CHEMISTRY JOSE ENRIQUE [facility] Performing Organization Address [facility] Co de Phone Number [address] [address], [facility] [phone] * MAGNESIUM BLOOD (03/06/2021 11:52 PM CDT) Magnesium 2.3 1.6 - 2.6 mg/dL 03/07/2021 12:18 AM CDT [facility] Blood BLOOD SPECIMEN / Unknown Venipuncture / Unknown 03/06/2021 11:52 PM CDT 03/06/2021 11:56 PM CDT Fredy Felipe MD LAB - CHEMISTRY JOSE ENRIQUE VELA Performing Organization Address City/[facility]/ZIP Co de Phone Number [facility] [address] [place] [address], [facility] [phone] * CT ABDOMEN PELVIS W CONTRAST (03/06/2021 [...] [place] (resident) I, Dr. NAOMY LAZO MD, [facility] have [...] [place] (resident) I, Dr. NAOMY LAZO MD, [facility] have personally reviewedand interpreted this examination/study. This report was electronically signed by ABDMITALI LAZO MD, [facility] on 03/07/2021 8:28 AM . Fredy Felipe MD CT ORDERABLES * (ABNORMAL) URINALYSIS REFLEX TO MICROSCOPIC NO CULTURE (03/06/2021 5:11 PM CDT) Color UA Yellow Straw, Yellow 03/06/2021 5:45 PM [facility] Clarity UA Slt Cloudy(A) Clear 03/06/2021 5:45 PM [facility] Specific Palmer UA 1.020 1.005 - 1.030 03/06/2021 5:45 PM [facility] pH UA 6.0 5.0 - 8.0 pH 03/06/2021 5:45 PM [facility] Protein UA 2+(A) Negative 03/06/2021 5:45 PM [facility] Glucose UA Negative Negative 03/06/2021 5:45 PM [facility] Ketone UA Negative Negative 03/06/2021 5:45 PM [facility] Bilirubin UA Negative Negative 03/06/2021 5:45 PM [facility] Blood UA 2+(A) Negative 03/06/2021 5:45 PM [facility] Nitrite UA Negative Negative 03/06/2021 5:45 PM [facility] Leukocyte Esterase Trace(A) Negative 03/06/2021 5:45 PM [facility] Urobilinogen UA Negative Negative mg/dL 03/06/2021 5:45 PM [facility] RBC UA 11-20(A) None Seen, 0-2, 3-5 /HPF 03/06/2021 5:45 PM [facility] WBC UA 21-50(A) None Seen, 0-5 /HPF 03/06/2021 5:45 PM [facility] Bacteria UA Trace(A) None /HPF 03/06/2021 5:45 PM [facility] Yeast Budding UA Few(A) None /HPF 03/06/20 5:45 PM [facility] Squamous Epithelial Cells UA 0-2 None Seen, 0-2, 3-5 /HPF 03/06/2021 5:45 PM CDT [facility] Mucus UA 1+ /LPF 03/06/2021 5:45 PM CDT [facility] RBC Casts UA 0-2(A) None Seen /LPF 03/06/2021 5:45 PM CDT [facility] Granular Casts UA 3-5(A) None Seen /LPF 03/06/2021 5:45 PM CDT [facility] Urine URINE SPECIMEN OBTAINED VIA [facility] / Unknown Collection / Unknown 03/06/2021 5:11 PM CDT 03/06/2021 5:19 PM CDT Narrative [facility] - 03/06/2021 5:45 PM CDT Fredy Felipe MD LAB - URINALYSIS ORD ERABLES [facility] [address] [place] [address], [facility] [phone] * XR CHEST 1VW PORTABLE (03/06/2021 4:07 [...] drafted by Keo Hernandez M.D. (resident) IDr. OSWALDO have personally reviewed and interpreted this examination/study. This report was electronically signed by OSWALDO CLEMONS on 03/06/2021 1:50 PM . Fredy Felipe MD DIAGNOSTIC IMAGING O RDERABLES * (ABNORMAL) DIFFERENTIAL MANUAL (03/06/2021 1:01 AM CDT) WBC (corrected for NRBC) 25.2 10? 3 /uL 03/06/2021 2:40 AM [facility] Total Cell Count 100 03/06/2021 2:40 AM [facility] Neutrophils Absolute Manual 23.18(H) 1.60 - 7.00 10? 3 /uL 03/06/2021 2:40 AM [facility] Comment:(BANDS+SEGS) x WBC = NEUT # (ANC) Lymphocyte Absolute Manual 0.50(L) 1.10 - 3.90 10? 3 /uL 03/06/2021 2:40 AM [facility] Monocytes Absolute Manual 1.01 0.26 - 1.07 10? 3 /uL 03/06/2021 2:40 AM [facility] Eosinophils Absolute Manual 0.50(H) 0.00 - 0.47 10? 3 /uL 03/06/2021 2:40 AM [facility] Neutrophil % Manual 92(H) 35 - 70 % 03/06/2021 2:40 AM [facility] Lymphocyte % Manual 2(L) 20 - 43 % 03/06/2021 2:40 AM [facility] Monocytes % Manual 4(L) 5 - 13 % 03/06/2021 2:40 AM [facility] Eosinophils % Manual 2 0 - 6 % 03/06/2021 2:40 AM [facility] Platelet Estimate Increased( A) Adequate 03/06/2021 2:40 AM [facility] Comment:Platelets are clumpe d on smear but appear increased. RBC Morphology Normal 03/06/2021 2:40 AM [facility] Blood BLOOD SPECIMEN / Unknown Venipuncture / Unknown 03/06/2021 1:01 AM CDT 03/06/2021 1:16 AM CDT Fredy Felipe MD LAB - HEMATOLOGY ORD ERABLES [facility] [address] [place] [address], [facility] [phone] * (ABNORMAL) CBC W AUTO DIFFERENTIAL (03/06/2021 1:01 AM CDT) WBC 25.2(H) 3.5 - 10.5 10? 3 /uL 03/06/2021 1:36 AM [facility] RBC 3.56(L) 4.30 - 5.70 10? 6 /uL 03/06/2021 1:36 AM [facility] Hemoglobin 9.8(L) 12.0 - 17.6 g/dL 03/06/2021 1:36 AM [facility] Hematocrit 31.4(L) 35.2 - 51.7 % 03/06/2021 1:36 AM [facility] MCV 88.2 80.7 - 98.3 fL 03/06/2021 1:36 AM [facility] MCH 27.5 26.7 - 34.0 pg 03/06/2021 1:36 AM [facility] MCHC 31.2 30.8 - 35.9 g/dL 03/06/2021 1:36 AM [facility] Platelet Count 633(H) 150 - 400 10? 3 /uL 03/06/2021 1:36 AM [facility] RDW-SD 45.5 36.0 - 50.0 fL 03/06/2021 1:36 AM [facility] RDW-CV 14.0 11.2 - 14.8 % 03/06/2021 1:36 AM CDT [facility] MPV 9.0(L) 9.4 - 12.9 fL 03/06/2021 1:36 AM CDT [facility] nRBC Absolute 0.00 0 10? 3 /uL 03/06/2021 1:36 AM CDT [facility] nRBC Auto 0.0 0 /100 WBC 03/06/2021 1:36 AM CDT [facility] Blood BLOOD SPECIMEN / Unknown Venipuncture / Unknown 03/06/2021 1:01 AM CDT 03/06/2021 1:16 AM CDT Fredy Felipe MD LAB - HEMATOLOGY ORD ERABLES Performing Organization Address City/[facility] Co de Phone Number [address] [address], [place] [phone] * (ABNORMAL) TRIGLYCERIDES BLOOD (03/06/2021 12:06 AM [...] Stewart MD LAB - CHEMISTRY ORD ERABLES [address] [address], [place] [phone] * (ABNORMAL) BASIC METABOLIC PANEL (CALCIUM TOTAL) (03/06/2021 12:06 AM CDT) BUN 31(H) 7 - 26 mg/dL 03/06/2021 12:50 AM [facility] Creatinine 1.42(H) 0.71 - 1.16 mg/dL 03/06/2021 12:50 AM [facility] Sodium 142 136 - 145 mmol/L 03/06/2021 12:50 AM [facility] Potassium 4.0 3.5 - 4.5 mmol/L 03/06/2021 12:50 AM [facility] Chloride 111(H) 98 - 107 mmol/L 03/06/2021 12:50 AM [facility] CO2 19(L) 22 - 29 mmol/L 03/06/2021 12:50 AM [facility] Glucose 124(H) 70 - 115 mg/dL 03/06/2021 12:50 AM [facility] Calcium 8.8 8.4 - 10.2 mg/dL 03/06/2021 12:50 AM [facility] Anion Gap 16 8 - 18 03/06/2021 12:50 AM [facility] BUN/Creatinine Ratio 22 7 - 23 03/06/2021 12:50 AM [facility] Osmolality Calculated 302(H) 270 - 300 mOsm/kg 03/06/2021 12:50 AM [facility] eGFR by CKD-EPI 64(L) >=90 mL/min/1.7 3 m2 03/06/2021 12:50 AM [facility] Blood BLOOD SPECIMEN / Unknown Venipuncture / Unknown 03/06/2021 12:06 AM CDT 03/06/2021 12:25 AM CDT Fredy Felipe MD LAB - CHEMISTRY JOSE ENRIQUE [facility] Organization Address City/State/ZIP Co de Phone Number [facility] [address] [place] [address], [facility] [phone] * (ABNORMAL) BLOOD GASES ART + COOX PANEL (03/06/2021 12:06 AM CDT) pH Arterial 7.42 7.35 - 7.45 pH 03/06/2021 12:36 AM [facility] pO2 Arterial 189(H) 80 - 100 mmHg 03/06/2021 12:36 AM [facility] pCO2 Arterial 30(L) 35 - 45 mmHg 12:36 AM [facility] HCO3 Arterial 20 20 - 30 mmol/l 03/06/2021 12:36 AM [facility] BE Arterial -4.1(L) -2.0 - 2.0 mmol/L 03/06/2021 12:36 AM [facility] Oxyhemoglobin Arterial 97.2 % 03/06/2021 12:36 AM [facility] Dexoyhemoglobin (HHB) % 0.0 % 03/06/2021 12:36 AM [facility] Methemoglobin <0.8 0.0 - 2.0 % 03/06/2021 12:36 AM [facility] Carboxyhemoglobin 2.4(H) 0.0 - 2.0 % 2020 12:36 AM [facility] O2 Content Arterial 15.1 Interpret within clinical context mg/dL 03/06/2021 12:36 AM [facility] Hemoglobin by COOX 10.7(L) 12.0 - 17.6 g/dL 03/06/2021 12:36 AM [facility] O2 Saturation Arterial 100 90 - 100 % 03/06/2021 12:36 AM [facility] FI O2 Arterial 80.0 % 03/06/2021 12:36 AM [facility] Blood, arterial ARTERIAL BLOOD SPECIMEN / Unknown Arterial Puncture / Unknown 03/06/2021 12:06 AM T 03/06/2021 12:22 AM [facility] - 03/06/2021 12:36 AM [facility] Carboxyhemoglobin Normal Concentration: Non-smokers: 0-2%; Smokers: 0-9%; Toxic: >20% Fredy Felipe MD LAB - BLOOD GASES OR DERABLES [facility] [address] [place] [address], [facility] [phone] * (ABNORMAL) PT-INR [facility] (03/06/2021 12:06 AM CDT) PT 15.7(H) 12.1 - 14.8 Seconds 03/06/2021 12:43 AM CDT [facility] INR 1.3 See Comment 03/06/2021 12:43 AM CDT [facility] Comment:The suggested therap [...] - COAGULATION OR DERABLES Performing Organization Address City/[facility]/ZIP Co de Phone Number [address] [address], [facility] [phone] * PHOSPHORUS BLOOD (03/06/2021 12:06 AM CDT) Phosphorus 3.3 2.8 - 5.1 mg/dL 03/06/2021 12:50 AM CDT [facility] Blood BLOOD SPECIMEN / Unknown Venipuncture / Unknown 03/06/2021 12:06 AM CDT 03/06/2021 12:25 AM CDT Fredy Felipe MD LAB - CHEMISTRY ORDE RABLES [address] [address], [facility] [phone] * MAGNESIUM BLOOD (03/06/2021 12:06 AM CDT) Magnesium 2.1 1.6 - 2.6 mg/dL 03/06/2021 12:50 AM CDT [facility] Blood BLOOD SPECIMEN / Unknown Venipuncture / Unknown 03/06/2021 12:06 AM CDT 03/06/2021 12:25 AM CDT Fredy Felpie MD LAB - CHEMISTRY JOSE ENRIQUE [facility] Performing Organization Address [facility]/ZIP Co de Phone Number [address] [address], [facility] [phone] * (ABNORMAL) CALCIUM IONIZED WHOLE BLOOD (03/06/2021 12:06 AM CDT) Calcium Ionized 1.12 mmol/L 03/06/2021 12:40 AM CDT [facility] pH 7.43 7.35 - 7.45 pH 03/06/2021 12:40 AM CDT [facility] Ionized Calcium pH Adjusted 1.13(L) 1.19 - 1.34 mmol/L 03/06/2021 12:40 AM CDT [facility] Blood BLOOD SPECIMEN / Unknown Venipuncture / Unknown 03/06/2021 12:06 AM CDT 03/06/2021 12:22 AM CDT Fredy Felipe MD LAB - CHEMISTRY JOSE ENRIQUE [facility] Performing Organization Address [facility]/ZIP Co de Phone Number [address] [address], [facility] [phone] * XR CHEST 1VW PORTABLE (03/05/2021 4:54 [...] 22.9 10? 3 /uL 03/05/2021 12:32 AM [facility] Total Cell Count 100 03/05/2021 12:32 AM [facility] Neutrophils Absolute Manual 19.47(H) 1.60 - 7.00 10? 3 /uL 03/05/2021 12:32 AM [facility] Comment:(BANDS+SEGS) x WBC = NEUT # (ANC) Lymphocyte Absolute Manual 1.15 1.10 - 3.90 10? 3 /uL 03/05/2021 12:32 AM [facility] Monocytes Absolute Manual 1.83(H) 0.26 - 1.07 10? 3 /uL 03/05/2021 12:32 AM [facility] Eosinophils Absolute Manual 0.46 0.00 - 0.47 10? 3 /uL 03/05/2021 12:32 AM [facility] Neutrophil % Manual 85(H) 35 - 70 % 03/05/2021 12:32 AM [facility] Lymphocyte % Manual 5(L) 20 - 43 % 03/05/2021 12:32 AM [facility] Monocytes % Manual 8 5 - 13 % 03/05/2021 12:32 AM [facility] Eosinophils % Manual 2 0 - 6 % 03/05/2021 12:32 AM [facility] Platelet Estimate Increased( A) Adequate 03/05/2021 12:32 AM [facility] RBC Morphology Normal 03/05/2021 12:32 AM [facility] Blood BLOOD SPECIMEN / Unknown Venipuncture / Unknown 03/04/2021 11:48 PM CDT 03/04/2021 11:53 PM CDT Fredy Felipe MD LAB - HEMATOLOGY ORD ERABLES [facility] [address] [place] [address], [facility] [phone] * (ABNORMAL) CBC W AUTO DIFFERENTIAL (03/04/2021 11:48 PM CDT) WBC 22.9(H) 3.5 - 10.5 10? 3 /uL 03/05/2021 12:06 AM [facility] RBC 3.89(L) 4.30 - 5.70 10? 6 /uL 03/05/2021 12:06 AM [facility] Hemoglobin 10.7(L) 12.0 - 17.6 g/dL 03/05/2021 12:06 AM [facility] Hematocrit 33.9(L) 35.2 - 51.7 % 03/05/2021 12:06 AM [facility] MCV 87.1 80.7 - 98.3 fL 03/05/2021 12:06 AM [facility] MCH 27.5 26.7 - 34.0 pg 03/05/2021 12:06 AM [facility] MCHC 31.6 30.8 - 35.9 g/dL 03/05/2021 12:06 AM [facility] Platelet Count 712(H) 150 - 400 10? 3 /uL 03/05/2021 12:06 AM [facility] RDW-SD 44.3 36.0 - 50.0 fL 03/05/2021 12:06 AM [facility] RDW-CV 14.0 11.2 - 14.8 % 03/05/2021 12:06 AM [facility] MPV 8.9(L) 9.4 - 12.9 fL 03/05/2021 12:06 AM [facility] nRBC Absolute 0.00 0 10? 3 /uL 03/05/2021 12:06 AM [facility] nRBC Auto 0.0 0 /100 WBC 03/05/2021 12:06 AM [facility] Immature Platelet Fraction 1.2 1.1 - 6.2 % 03/05/2021 12:06 AM [facility] Blood BLOOD SPECIMEN / Unknown Venipuncture / Unknown 03/04/2021 11:48 PM CDT 03/04/2021 11:53 PM CDT Fredy Felipe MD LAB - HEMATOLOGY ORD ERABLES [facility] [address] [place] [address], [facility] [phone] * (ABNORMAL) BASIC METABOLIC PANEL (CALCIUM TOTAL) (03/04/2021 11:48 PM CDT) BUN 27(H) 7 - 26 mg/dL 03/05/2021 12:16 AM [facility] Creatinine 1.27(H) 0.71 - 1.16 mg/dL 03/05/2021 12:16 AM [facility] Sodium 142 136 - 145 mmol/L 03/05/2021 12:16 AM [facility] Potassium 3.9 3.5 - 4.5 mmol/L 03/05/2021 12:16 AM [facility] Chloride 111(H) 98 - 107 mmol/L 03/05/2021 12:16 AM [facility] CO2 19(L) 22 - 29 mmol/L 03/05/2021 12:16 AM [facility] Glucose 116(H) 70 - 115 mg/dL 03/05/2021 12:16 AM [facility] Calcium 9.2 8.4 - 10.2 mg/dL 03/05/2021 12:16 AM [facility] Anion Gap 16 8 - 18 03/05/2021 12:16 AM [facility] BUN/Creatinine Ratio 21 7 - 23 03/05/2021 12:16 AM [facility] Osmolality Calculated 300 270 - 300 mOsm/kg 03/05/2021 12:16 AM [facility] eGFR by CKD-EPI 73(L) >=90 mL/min/1.7 3 m2 03/05/2021 12:16 AM [facility] Blood BLOOD SPECIMEN / Unknown Venipuncture / Unknown 03/04/2021 11:48 PM CDT 03/04/2021 11:53 PM T Fredy Felipe MD LAB - CHEMISTRY [facility] ENRI[facility] Organization Address City/[facility] Co de Phone Number [facility] [address] [place] [phone], [facility] [phone] * (ABNORMAL) BLOOD GASES ART + COOX PANEL (03/04/2021 11:48 PM CDT) pH Arterial 7.46(H) 7.35 - 7.45 pH 03/04/2021 11:57 PM [facility] pO2 Arterial 190(H) 80 - 100 mmHg 03/04/2021 11:57 PM [facility] pCO2 Arterial 28(L) 35 - 45 mmHg 11:57 PM [facility] HCO3 Arterial 20 20 - 30 mmol/l 03/04/2021 11:57 PM [facility] BE Arterial -2.9(L) -2.0 - 2.0 mmol/L 03/04/2021 11:57 PM [facility] Oxyhemoglobin Arterial 96.4 % 03/04/2021 11:57 PM [facility] Dexoyhemoglobin (HHB) % 0.5 % 03/04/2021 11:57 PM CDT [facility] Methemoglobin 0.8 0.0 - 2.0 % 03/04/2021 11:57 PM T [facility] Carboxyhemoglobin 2.3(H) 0.0 - 2.0 % 2020 11:57 PM T [facility] O2 Content Arterial 16.4 Interpret within clinical context mg/dL 03/04/2021 11:57 PM [facility] Hemoglobin by COOX 11.8(L) 12.0 - 17.6 g/dL 03/04/2021 11:57 PM [facility] O2 Saturation Arterial 100 90 - 100 % 03/04/2021 11:57 PM [facility] FI O2 Arterial 40.0 % 03/04/2021 11:57 PM [facility] Blood, arterial ARTERIAL BLOOD SPECIMEN / Unknown Arterial Puncture / Unknown 03/04/2021 11:48 PM CDT 03/04/2021 11:53 PM CDT Narrative [facility] - 03/04/2021 11:57 PM CDT Carboxyhemoglobin Normal Concentration: Non-smokers: 0-2%; Smokers: 0-9%; Toxic: >20% Fredy Felipe MD LAB - BLOOD GASES OR DERABLES Performing Organization Address City/State/[facility] Co de Phone Number [facility] [address] [place] [phone], [facility] [phone] * (ABNORMAL) PT-INR [facility] (03/04/2021 11:48 PM CDT) PT 15.1(H) 12.1 - 14.8 Seconds 03/05/2021 12:12 AM [facility] INR 1.2 See Comment 03/05/2021 12:12 AM [facility] Comment:The suggested therap eutic range for standard coumadin (warfarin) therapy is an INR of 2.0-3.0. For high-risk patients (Mechanical Mitral Valve Prosthesis, etc.), the suggested prophylactic therapeutic range is an INR of 2.5-3.5. Blood BLOOD SPECIMEN / Unknown Venipuncture / Unknown 03/04/2021 11:48 PM CDT 03/04/2021 11:53 PM CDT Fredy Felipe MD LAB - COAGULATION OR DERABLES [address] [address], [facility] [phone] * PHOSPHORUS BLOOD (03/04/2021 11:48 PM CDT) Phosphorus 3.2 2.8 - 5.1 mg/dL 03/05/2021 12:16 AM CDT [facility] Blood BLOOD SPECIMEN / Unknown Venipuncture / Unknown 03/04/2021 11:48 PM CDT 03/04/2021 11:53 PM CDT Fredy Felipe MD LAB - CHEMISTRY [facility] ENRIQUE [facility]ELA Performing Organization Address City/[facility]/ZIP Co de Phone Number [address] [address], [facility] [phone] * MAGNESIUM BLOOD (03/04/2021 11:48 PM CDT) Magnesium 2.2 1.6 - 2.6 mg/dL 03/05/2021 12:16 AM CDT [facility] Blood BLOOD SPECIMEN / Unknown Venipuncture / Unknown 03/04/2021 11:48 PM CDT 03/04/2021 11:53 PM CDT Frdey Felipe MD LAB - CHEMISTRY JOSE ENRIQUE VELA [address] [address], [facility] [phone] * (ABNORMAL) CALCIUM IONIZED WHOLE BLOOD (03/04/2021 11:48 PM CDT) Calcium Ionized 1.22 mmol/L 03/04/2021 11:57 PM CDT [facility] pH 7.47(H) 7.35 - 7.45 pH 03/04/2021 11:57 PM CDT [facility] Ionized Calcium pH Adjusted 1.26 1.19 - 1.34 mmol/L 03/04/2021 11:57 PM CDT [facility] Blood BLOOD SPECIMEN / Unknown Venipuncture / Unknown 03/04/2021 11:48 PM CDT 03/04/2021 11:53 PM CDT Fredy Felipe MD LAB - CHEMISTRY JOSE ENRIQUE VELA Performing Organization Address City/[facility]/ZIP Co de Phone Number [facility] [address] [place] [address], [facility] [phone] * CULTURE MRSA (03/04/2021 12:43 PM CDT) Culture Negative for methicillin-resist ant Staphylococcus aureus (MRSA) [place] 03/05/2021 8:38 PM CDT [facility] MICROBIOLOGY Microbiology SPECIMEN FROM NASAL FOSSAE / Unknown Collection / Unknown 03/04/2021 12:43 PM CDT 03/04/2021 12:52 PM CDT Kelvin Stewart MD LAB - MICROBIOLOGY ORDERABLES Performing Organization Address [facility] Co de Phone Number [facility] MICROBIOLOGY [address] [place] [address], [facility] [phone] * CULTURE SPUTUM+GRAM STAIN (03/04/2021 5:47 AM CDT) Culture Light normal oropharyngeal zi [place] 03/06/2021 6:42 AM CDT [facility] MICROBIOLOGY Gram Stain <10 per low power field Squamous epithelial cells 03/06/2021 6:42 AM CDT [facility] MICROBIOLOGY Gram Stain >= 25 per low power field Polymorphonuclear cells 03/06/2021 6:42 AM CDT [facility] MICROBIOLOGY Gram Stain Rare Gram-positive cocci 03/06/2021 6:42 AM CDT [facility] MICROBIOLOGY Microbiology SPUTUM / Unknown Collection / Unknown 03/04/2021 5:47 AM CDT 03/04/2021 5:50 AM CDT Fredy Felipe MD LAB - MICROBIOLOGY O RDERABLES [facility] MICROBIOLOGY [address] [place], [place] [address], [facility] [phone] * XR CHEST 1VW PORTABLE (03/04/2021 5:27 [...] is normal. Dictated by Alex Verdugo MD (resident medical officer). IDr. OSWALDO have personally reviewed and interpreted [...] is normal. Dictated by Alex Verdugo MD (resident medical officer). Dr. OSWALDO Yao have personally reviewed and interpreted this examination/study. This report was electronically signed by OSWALDO CLEMONS on 03/04/2021 4:04 PM . Fredy Felipe MD DIAGNOSTIC IMAGING O RDERABLES * (ABNORMAL) DIFFERENTIAL MANUAL (03/04/2021 1:04 AM [facility]) WBC (corrected for NRBC) 20.3 10? 3 /uL 03/04/2021 1:46 AM [facility] Total Cell Count 100 03/04/2021 1:46 AM [facility] Neutrophils Absolute Manual 17.66(H) 1.60 - 7.00 10? 3 /uL 03/04/2021 1:46 AM [facility] Comment:(BANDS+SEGS) x WBC = NEUT # (ANC) Lymphocyte Absolute Manual 0.81(L) 1.10 - 3.90 10? 3 /uL 03/04/2021 1:46 AM [facility] Monocytes Absolute Manual 1.02 0.26 - 1.07 10? 3 /uL 03/04/2021 1:46 AM [facility] Eosinophils Absolute Manual 0.61(H) 0.00 - 0.47 10? 3 /uL 03/04/2021 1:46 AM [facility] Neutrophil % Manual 87(H) 35 - 70 % 03/04/2021 1:46 AM [facility] Lymphocyte % Manual 4(L) 20 - 43 % 03/04/2021 1:46 AM [facility] Monocytes % Manual 5 5 - 13 % 03/04/2021 1:46 AM [facility] Eosinophils % Manual 3 0 - 6 % 03/04/2021 1:46 AM [facility] Atypical Lymphocyte % Manual 1(H) 0 % 03/04/2021 1:46 AM [facility] Platelet Estimate Increased( A) Adequate 03/04/2021 1:46 AM [facility] Comment:Platelet clumpled on the smear but appear increased RBC Morphology Normal 03/04/2021 1:46 AM [facility] Blood BLOOD SPECIMEN / Unknown Venipuncture / Unknown 03/04/2021 1:04 AM CDT 03/04/2021 1:16 AM CDT Fredy Felipe MD LAB - HEMATOLOGY ORD ERABLES [facility] [address] [place] [address], [facility] [phone] * (ABNORMAL) CBC W AUTO DIFFERENTIAL (03/04/2021 1:04 AM CDT) WBC 20.3(H) 3.5 - 10.5 10? 3 /uL 03/04/2021 1:21 AM [facility] RBC 3.97(L) 4.30 - 5.70 10? 6 /uL 03/04/2021 1:21 AM [facility] Hemoglobin 10.7(L) 12.0 - 17.6 g/dL 03/04/2021 1:21 AM [facility] Hematocrit 33.9(L) 35.2 - 51.7 % 03/04/2021 1:21 AM [facility] MCV 85.4 80.7 - 98.3 fL 03/04/2021 1:21 AM [facility] MCH 27.0 26.7 - 34.0 pg 03/04/2021 1:21 AM [facility] MCHC 31.6 30.8 - 35.9 g/dL 03/04/2021 1:21 AM [facility] Platelet Count 665(H) 150 - 400 10? 3 /uL 03/04/2021 1:21 AM [facility] RDW-SD 43.2 36.0 - 50.0 fL 03/04/2021 1:21 AM [facility] RDW-CV 13.7 11.2 - 14.8 % 03/04/2021 1:21 AM [facility] MPV 8.8(L) 9.4 - 12.9 fL 03/04/2021 1:21 AM [facility] nRBC Absolute 0.00 0 10? 3 /uL 03/04/2021 1:21 AM [facility] nRBC Auto 0.0 0 /100 WBC 03/04/2021 1:21 AM [facility] Blood BLOOD SPECIMEN / Unknown Venipuncture / Unknown 03/04/2021 1:04 AM CDT 03/04/2021 1:16 AM CDT Fredy Felipe MD LAB - HEMATOLOGY ORD ERABLES [facility] [address] [place] [address], [facility] [phone] * (ABNORMAL) BASIC METABOLIC PANEL (CALCIUM TOTAL) (03/04/2021 1:04 AM CDT) BUN 25 7 - 26 mg/dL 03/04/2021 1:40 AM [facility] Creatinine 1.28(H) 0.71 - 1.16 mg/dL 03/04/2021 1:40 AM [facility] Sodium 141 136 - 145 mmol/L 03/04/2021 1:40 AM [facility] Potassium 3.6 3.5 - 4.5 mmol/L 03/04/2021 1:40 AM [facility] Chloride 109(H) 98 - 107 mmol/L 03/04/2021 1:40 AM [facility] CO2 19(L) 22 - 29 mmol/L 03/04/2021 1:40 AM [facility] Glucose 117(H) 70 - 115 mg/dL 03/04/2021 1:40 AM [facility] Calcium 9.2 8.4 - 10.2 mg/dL 03/04/2021 1:40 AM [facility] Anion Gap 17 8 - 18 03/04/2021 1:40 AM [facility] BUN/Creatinine Ratio 20 7 - 23 03/04/2021 1:40 AM [facility] Osmolality Calculated 297 270 - 300 mOsm/kg 03/04/2021 1:40 AM [facility] eGFR by CKD-EPI 72(L) >=90 mL/min/1.7 3 m2 03/04/2021 1:40 AM [facility] Blood BLOOD SPECIMEN / Unknown Venipuncture / Unknown 03/04/2021 1:04 AM CDT 03/04/2021 1:16 AM CDT Fredy Felipe MD LAB - CHEMISTRY JOSE ENRIQUE VELA [facility] Organization Address City/State/ZIP Co de Phone Number [facility] [address] [place] [address], [facility] [phone] * (ABNORMAL) BLOOD GASES ART + COOX PANEL (03/04/2021 1:04 AM CDT) pH Arterial 7.43 7.35 - 7.45 pH 03/04/2021 1:17 AM [facility] pO2 Arterial 154(H) 80 - 100 mmHg 03/04/2021 1:17 AM [facility] pCO2 Arterial 32(L) 35 - 45 mmHg 1:17 AM [facility] HCO3 Arterial 21 20 - 30 mmol/l 03/04/2021 1:17 AM [facility] BE Arterial -2.4(L) -2.0 - 2.0 mmol/L 03/04/2021 1:17 AM [facility] Oxyhemoglobin Arterial 97.8 % 03/04/2021 1:17 AM [facility] Dexoyhemoglobin (HHB) % 0.3 % 03/04/2021 1:17 AM [facility] Methemoglobin 0.8 0.0 - 2.0 % 03/04/2021 1:17 AM [facility] Carboxyhemoglobin 1.2 0.0 - 2.0 % 2020 1:17 AM [facility] O2 Content Arterial 15.8 Interpret within clinical context mg/dL 03/04/2021 1:17 AM [facility] Hemoglobin by COOX 11.3(L) 12.0 - 17.6 g/dL 03/04/2021 1:17 AM [facility] O2 Saturation Arterial 100 90 - 100 % 03/04/2021 1:17 AM [facility] FI O2 Arterial 40.0 % 03/04/2021 1:17 AM [facility] Blood, arterial ARTERIAL BLOOD SPECIMEN / Unknown Arterial Puncture / Unknown 03/04/2021 1:04 AM CDT 03/04/2021 1:15 AM CDT Narrative [facility] - 03/04/2021 1:17 AM CDT Carboxyhemoglobin Normal Concentration: Non-smokers: 0-2%; Smokers: 0-9%; Toxic: >20% Fredy Felipe MD LAB - BLOOD GASES OR DERABLES Performing Organization Address [facility] de Phone Number [address] [address], [facility] [phone] * (ABNORMAL) PT-INR [facility] (03/04/2021 1:04 AM CDT) PT 15.0(H) 12.1 - 14.8 Seconds 03/04/2021 1:31 AM CDT [facility] INR 1.2 See Comment 03/04/2021 1:31 [...] - COAGULATION OR DERABLES Performing Organization Address [facility] de Phone Number [address] [address], [facility] [phone] * PHOSPHORUS BLOOD (03/04/2021 1:04 AM CDT) Phosphorus 3.0 2.8 - 5.1 mg/dL 03/04/2021 1:40 AM CDT [facility] Blood BLOOD SPECIMEN / Unknown Venipuncture / Unknown 03/04/2021 1:04 AM CDT 03/04/2021 1:16 AM CDT Fredy Felipe MD LAB - CHEMISTRY JOSE ENRIQUE VELA [facility] [address] [place] [address], [place] [phone] * MAGNESIUM BLOOD (03/04/2021 1:04 AM CDT) Pathologist [facility] Magnesium 2.1 1.6 - 2.6 mg/dL 03/04/2021 1:40 AM CDT [facility] Blood BLOOD SPECIMEN / Unknown Venipuncture / Unknown 03/04/2021 1:04 AM CDT 03/04/2021 1:16 AM CDT Fredy Felipe MD LAB - CHEMISTRY JOSE ENRIQUE VELA Performing Organization Address City/[facility]/ZIP Co de Phone Number [address] [address], [place] [phone] * CALCIUM IONIZED WHOLE BLOOD (03/04/2021 1:04 AM CDT) [facility] Calcium Ionized 1.20 mmol/L 03/04/2021 1:19 AM CDT [facility] pH 7.41 7.35 - 7.45 pH 03/04/2021 1:19 AM CDT [facility] Ionized Calcium pH Adjusted 1.20 1.19 - 1.34 mmol/L 03/04/2021 1:19 AM CDT [facility] Blood BLOOD SPECIMEN / Unknown Venipuncture / Unknown 03/04/2021 1:04 AM CDT 03/04/2021 1:15 AM CDT Fredy Felipe MD LAB - CHEMISTRY JOSE ENRIQUE VELA [address] [address], [place] [phone] * CULTURE BLOOD (03/03/2021 8:20 AM CDT) Pathologist [facility] Culture No growth day 5 [place] 03/08/2021 2:00 PM CDT [facility] MICROBIOLOGY Blood PERIPHERAL BLOOD / Unknown Venipuncture / Unknown 03/03/2021 8:20 AM CDT 03/03/2021 8:46 AM CDT Fredy Felipe MD LAB - MICROBIOLOGY O RDTERESA [facility] MICROBIOLOGY [address] [place] [address], [facility] [phone] * CULTURE BLOOD (03/03/2021 8:00 AM CDT) Culture No growth day 5 [place] 03/08/2021 2:00 PM CDT [facility] MICROBIOLOGY Blood PERIPHERAL BLOOD / Unknown Venipuncture / Unknown 03/03/2021 8:00 AM CDT 03/03/2021 8:46 AM CDT Fredy Felipe MD LAB - MICROBIOLOGY O TIFFANY Performing Organization Address [facility] de Phone Number [facility] MICROBIOLOGY [address] [place] [address], [facility] [phone] * XR CHEST 1VW PORTABLE (03/03/2021 4:56 [...] DO (resident). I, Dr. NAOMY LAZO MD, [facility] have [...] DO (resident). I, Dr. NAOMY LAZO MD, [facility] have personally reviewedand interpreted this examination/study. This report was electronically signed by NAOMY LAZO MD, [facility] on 03/03/2021 3:48 PM . Fredy Felipe MD DIAGNOSTIC IMAGING O RDERABLES * (ABNORMAL) DIFFERENTIAL MANUAL (03/02/2021 11:41 PM CDT) WBC (corrected for NRBC) 20.3 10? 3 /uL 03/03/2021 12:26 AM CDT [facility] Total Cell Count 100 03/03/2021 12:26 AM CDT [facility] Neutrophils Absolute Manual 17.26(H) 1.60 - 7.00 10? 3 /uL 03/03/2021 12:26 AM CDT [facility] Comment:(BANDS+SEGS) x WBC = NEUT # (ANC) Lymphocyte Absolute Manual 1.22 1.10 - 3.90 10? 3 /uL 03/03/2021 12:26 AM CDT [facility] Monocytes Absolute Manual 1.42(H) 0.26 - 1.07 10? 3 /uL 03/03/2021 12:26 AM [facility] Eosinophils Absolute Manual 0.41 0.00 - 0.47 10? 3 /uL 03/03/2021 12:26 AM [facility] Band % Manual 1 0 - 10 % 03/03/2021 12:26 AM [facility] Neutrophil % Manual 84(H) 35 - 70 % 03/03/2021 12:26 AM [facility] Lymphocyte % Manual 6(L) 20 - 43 % 03/03/2021 12:26 AM [facility] Monocytes % Manual 7 5 - 13 % 03/03/2021 12:26 AM [facility] Eosinophils % Manual 2 0 - 6 % 03/03/2021 12:26 AM [facility] Platelet Estimate Increased(A) Adequate 03/03/2021 12:26 AM [facility] RBC Morphology Normal 03/03/2021 12:26 AM [facility] Comment Platelet Platelet clumpled on the smear but appear increased. 03/03/2021 12:26 AM [facility] Blood BLOOD SPECIMEN / Unknown Venipuncture / Unknown 03/02/2021 11:41 PM CDT 03/02/2021 11:45 PM CDT Fredy Felipe MD LAB - HEMATOLOGY ORD ERABLES Performing Organization Address City/State/[facility] Co de Phone Number [facility] [address] [place] [address], [facility] [phone] * (ABNORMAL) TRIGLYCERIDES BLOOD (03/02/2021 11:41 PM CDT) Triglycerides 474(H) <150 mg/dL 03/03/2021 12:10 AM [facility] Comment: ATP III Classification of Triglycerides: ?<150 mg/dL: ??Normal ? 150 - 199 mg/dL: ??Borderline High ? 200 - 400 mg/dL: ??High ?>500 mg/dL: ??Very High Blood BLOOD SPECIMEN / Unknown Venipuncture / Unknown 03/02/2021 11:41 PM CDT 03/02/2021 11:45 PM CDT Kelvin Stewart MD LAB - CHEMISTRY ORD ERABLES [facility] [address] [place] [address], [facility] [phone] * (ABNORMAL) CBC W AUTO DIFFERENTIAL (03/02/2021 11:41 PM CDT) WBC 20.3(H) 3.5 - 10.5 10? 3 /uL 03/02/2021 11:50 PM CDT [facility] RBC 3.67(L) 4.30 - 5.70 10? 6 /uL 03/02/2021 11:50 PM [facility] Hemoglobin 10.2(L) 12.0 - 17.6 g/dL 03/02/2021 11:50 PM T [facility] Hematocrit 32.0(L) 35.2 - 51.7 % 03/02/2021 11:50 PM [facility] MCV 87.2 80.7 - 98.3 fL 03/02/2021 11:50 PM [facility] MCH 27.8 26.7 - 34.0 pg 03/02/2021 11:50 PM T [facility] MCHC 31.9 30.8 - 35.9 g/dL 03/02/2021 11:50 PM [facility] Platelet Count 623(H) 150 - 400 10? 3 /uL 03/02/2021 11:50 PM T [facility] RDW-SD 43.9 36.0 - 50.0 fL 03/02/2021 11:50 PM [facility] RDW-CV 13.7 11.2 - 14.8 % 03/02/2021 11:50 PM [facility] MPV 8.6(L) 9.4 - 12.9 fL 03/02/2021 11:50 PM T [facility] nRBC Absolute 0.00 0 10? 3 /uL 03/02/2021 11:50 PM [facility] nRBC Auto 0.0 0 /100 WBC 03/02/2021 11:50 PM [facility] Blood BLOOD SPECIMEN / Unknown Venipuncture / Unknown 03/02/2021 11:41 PM CDT 03/02/2021 11:45 PM CDT Fredy Felipe MD LAB - HEMATOLOGY ORD ERABLES [facility] [address] [place] [address], [facility] [phone] * (ABNORMAL) BASIC METABOLIC PANEL (CALCIUM TOTAL) (03/02/2021 11:41 PM CDT) BUN 19 7 - 26 mg/dL 03/03/2021 12:10 AM [facility] Creatinine 1.30(H) 0.71 - 1.16 mg/dL 03/03/2021 12:10 AM [facility] Sodium 142 136 - 145 mmol/L 03/03/2021 12:10 AM [facility] Potassium 3.7 3.5 - 4.5 mmol/L 03/03/2021 12:10 AM [facility] Chloride 108(H) 98 - 107 mmol/L 03/03/2021 12:10 AM [facility] CO2 21(L) 22 - 29 mmol/L 03/03/2021 12:10 AM [facility] Glucose 104 70 - 115 mg/dL 03/03/2021 12:10 AM [facility] Calcium 9.1 8.4 - 10.2 mg/dL 03/03/2021 12:10 AM [facility] Anion Gap 17 8 - 18 03/03/2021 12:10 AM [facility] BUN/Creatinine Ratio 15 7 - 23 03/03/2021 12:10 AM [facility] Osmolality Calculated 297 270 - 300 mOsm/kg 03/03/2021 12:10 AM [facility] eGFR by CKD-EPI 71(L) >=90 mL/min/1.7 3 m2 03/03/2021 12:10 AM [facility] Blood BLOOD SPECIMEN / Unknown Venipuncture / Unknown 03/02/2021 11:41 PM CDT 03/02/2021 11:45 PM T Fredy Felipe MD LAB - CHEMISTRY JOSE ENRIQUE Pena Organization Address City/State/ZIP Co de Phone Number [facility] [address] [place] [address], [facility] [phone] * (ABNORMAL) BLOOD GASES ART + COOX PANEL (03/02/2021 11:41 PM CDT) pH Arterial 7.52(H) 7.35 - 7.45 pH 03/02/2021 11:46 PM [facility] pO2 Arterial 160(H) 80 - 100 mmHg 03/02/2021 11:46 PM [facility] pCO2 Arterial 29(L) 35 - 45 mmHg 11:46 PM [facility] HCO3 Arterial 24 20 - 30 mmol/l 03/02/2021 11:46 PM [facility] BE Arterial 1.4 -2.0 - 2.0 mmol/L 03/02/2021 11:46 PM [facility] Oxyhemoglobin Arterial 96.3 % 03/02/2021 11:46 PM [facility] Dexoyhemoglobin (HHB) % 0.1 % 03/02/2021 11:46 PM [facility] Methemoglobin 0.9 0.0 - 2.0 % 03/02/2021 11:46 PM [facility] Carboxyhemoglobin 2.7(H) 0.0 - 2.0 % 2020 11:46 PM [facility] O2 Content Arterial 15.2 Interpret within clinical context mg/dL 03/02/2021 11:46 PM [facility] Hemoglobin by COOX 11.0(L) 12.0 - 17.6 g/dL 03/02/2021 11:46 PM [facility] O2 Saturation Arterial 100 90 - 100 % 03/02/2021 11:46 PM [facility] FI O2 Arterial 40.0 % 03/02/2021 11:46 PM CDT [facility] Blood, arterial ARTERIAL BLOOD SPECIMEN / Unknown Arterial Puncture / Unknown 03/02/2021 11:41 PM CDT 03/02/2021 11:44 PM CDT Narrative [facility] - 03/02/2021 11:46 PM CDT Carboxyhemoglobin Normal Concentration: Non-smokers: 0-2%; Smokers: 0-9%; Toxic: >20% Fredy Felipe MD LAB - BLOOD GASES OR DERABLES Performing Organization Address City/[facility]/ZIP Co de Phone Number [address] [address], [facility] [phone] * PT-INR [facility] (03/02/2021 11:41 PM CDT) PT 14.8 12.1 - 14.8 Seconds 03/03/2021 1:38 AM T [facility] INR 1.2 See Comment 03/03/2021 1:38 AM T [facility] Comment:The suggested therap eutic range for standard coumadin (warfarin) therapy is an INR of 2.0-3.0. For high-risk patients (Mechanical Mitral Valve Prosthesis, etc.), the suggested prophylactic therapeutic range is an INR of 2.5-3.5. Blood BLOOD SPECIMEN / Unknown Venipuncture / Unknown 03/02/2021 11:41 PM CDT 03/02/2021 11:52 PM CDT Fredy Felipe MD LAB - COAGULATION OR DERABLES [address] [address], [facility] [phone] * PHOSPHORUS BLOOD (03/02/2021 11:41 PM CDT) Phosphorus 4.0 2.8 - 5.1 mg/dL 03/03/2021 12:10 AM T [facility] Blood BLOOD SPECIMEN / Unknown Venipuncture / Unknown 03/02/2021 11:41 PM CDT 03/02/2021 11:45 PM CDT Fredy Felipe MD LAB - CHEMISTRY JOSE ENRIQUE VELA Performing Organization Address City/[facility]/ZIP Co de Phone Number [address] [address], [place] [phone] * MAGNESIUM BLOOD (03/02/2021 11:41 PM CDT) Magnesium 2.1 1.6 - 2.6 mg/dL 03/03/2021 12:10 AM CDT [facility] Blood BLOOD SPECIMEN / Unknown Venipuncture / Unknown 03/02/2021 11:41 PM CDT 03/02/2021 11:45 PM CDT Fredy Felipe MD LAB - CHEMISTRY JOSE ENRIQUE VELA Performing Organization Address [facility]/ZIP Co de Phone Number [address] [address], [place] [phone] * (ABNORMAL) CALCIUM IONIZED WHOLE BLOOD (03/02/2021 [...] CHEMISTRY JOSE ENRIQUE VELA Performing Organization Address City/[facility]/ZIP Co de Phone Number [address] [address], [place] [phone] * (ABNORMAL) URINALYSIS REFLEX TO MICROSCOPIC NO CULTURE (03/02/2021 6:52 PM CDT) Color UA Janis(A) Straw, Yellow 03/02/2021 7:39 PM [facility] Clarity UA Slt Cloudy(A) Clear 03/02/2021 7:39 PM [facility] Specific Palmer UA 1.031(H) 1.005 - 1.030 03/02/2021 7:39 PM [facility] pH UA 5.0 5.0 - 8.0 pH 03/02/2021 7:39 PM [facility] Protein UA 2+(A) Negative 03/02/2021 7:39 PM [facility] Glucose UA Negative Negative 03/02/2021 7:39 PM [facility] Ketone UA Trace(A) Negative 03/02/2021 7:39 PM [facility] Bilirubin UA Negative Negative 03/02/2021 7:39 PM [facility] Blood UA 2+(A) Negative 03/02/2021 7:39 PM [facility] Nitrite UA Negative Negative 03/02/2021 7:39 PM [facility] Leukocyte Esterase Negative Negative 03/02/2021 7:39 PM [facility] Urobilinogen UA Negative Negative mg/dL 03/02/2021 7:39 PM [facility] RBC UA 21-50(A) None Seen, 0-2, 3-5 /HPF 03/02/2021 7:39 PM [facility] WBC UA 6-10(A) None Seen, 0-5 /HPF 03/02/2021 7:39 PM [facility] Bacteria UA Trace(A) None /HPF 03/02/2021 7:39 PM [facility] Squamous Epithelial Cells UA None Seen None Seen, 0-2, 3-5 /HPF 03/02/2021 7:39 PM [facility] Mucus UA 1+ /LPF 03/02/2021 7:39 PM [facility] Urine URINE SPECIMEN OBTAINED VIA [facility] / Unknown Collection / Unknown 03/02/2021 6:52 PM CDT 03/02/2021 7:00 PM CDT Narrative [facility] - 03/02/2021 7:39 PM CDT Delilah JEFFERY ELECTRONIC TEST TECHNICIAN LAB - URINALYSIS ORDERABLES [address] [address], [place] [phone] * UREA NITROGEN URINE RANDOM (03/02/2021 6:52 PM CDT) Urea Nitrogen Random Urine 1,057 Not Established mg/dL 03/02/2021 7:33 PM CDT [facility] Urine URINE SPECIMEN OBTAINED BY CLEAN CATCH PROCEDURE / Unknown Collection / Unknown 03/02/2021 6:52 PM CDT 03/02/2021 7:00 PM CDT Delilah JEFFERY ELECTRONIC TEST TECHNICIAN LAB - URINE CHEMISTRY ORDERABLES [address] [address], [place] [phone] * CHLORIDE URINE RANDOM (03/02/2021 6:52 PM CDT) Chloride Random Urine 45 Not Established mmol/L 03/02/2021 7:33 PM CDT [facility] Urine URINE SPECIMEN OBTAINED BY CLEAN CATCH PROCEDURE / Unknown Collection / Unknown 03/02/2021 6:52 PM CDT 03/02/2021 7:00 PM CDT Delilah JEFFERY ELECTRONIC TEST TECHNICIAN LAB - URINE CHEMISTRY ORDERABLES [address] [address], [place] [phone] * LYTES (NA K) URINE RANDOM PANEL (03/02/2021 6:52 PM CDT) Sodium Urine 97 Not Established mmol/L 03/02/2021 7:33 PM CDT [facility] Potassium Urine 36.5 Not Established mmol/L 03/02/2021 7:33 PM CDT [facility] Urine URINE SPECIMEN OBTAINED BY CLEAN CATCH PROCEDURE / Unknown Collection / Unknown 03/02/2021 6:52 PM CDT 03/02/2021 7:00 PM CDT Delilah Stubbs APRN-Tal ELECTRONIC TEST TECHNICIAN LAB - URINE CHEMISTRY ORDERABLES Performing Organization Address City/[facility]/ZIP Co de Phone Number [address] [address], [facility] [phone] * CREATININE URINE RANDOM (03/02/2021 6:52 PM CDT) Creatinine Urine 135 Not Established mg/dL 03/02/2021 7:33 PM CDT [facility] Urine URINE SPECIMEN OBTAINED BY CLEAN CATCH PROCEDURE / Unknown Collection / Unknown 03/02/2021 6:52 PM CDT 03/02/2021 7:00 PM CDT Delilah Stubbs APRN-Tal ELECTRONIC TEST TECHNICIAN LAB - URINE CHEMISTRY ORDERABLES Performing Organization Address [facility] Co de Phone Number [address] [address], [place] [phone] * (ABNORMAL) HEPATIC FUNCTION PANEL (03/02/2021 6:40 PM CDT) Protein Total 7.2 6.0 - 8.3 g/dL 021 7:40 PM CDT [facility] Albumin 1.8(L) 3.4 - 5.0 g/dL 03/02/2021 7:40 PM CDT [facility] Bilirubin Total 0.6 0.2 - 1.2 mg/dL 02/14 7:40 PM CDT [facility] Bilirubin Conjugated 0.3 0.1 - 0.5 mg/dL 03/02/2021 7:40 PM CDT [facility] Bilirubin Unconjugated 0.3 Unconjugated Bilirubin is a calculated value: Reference ranges have not been established. mg/dL 03/02/2021 7:40 PM T [facility] Alkaline Phosphatase 226(H) 40 - 150 U/L 03/02/2021 7:40 PM [facility] ALT 27 5 - 55 U/L 03/02/2021 7:40 PM T [facility] AST 46(H) 5 - 34 U/L 03/02/2021 7:40 PM [facility] Albumin/Globulin Ratio 0.3(L) 1.1 - 2.3 03/02/2021 7:40 PM [facility] Blood BLOOD SPECIMEN / Unknown Venipuncture / Unknown 03/02/2021 6:40 PM CDT 03/02/2021 6:46 PM CDT Delilah JEFFERY ELECTRONIC TEST TECHNICIAN LAB - CHEMISTRY ORDERABLES Performing Organization Address [facility] Co de Phone Number [address] [phone] [phone] * (ABNORMAL) BASIC METABOLIC PANEL (CALCIUM TOTAL) (03/02/2021 6:40 PM CDT) BUN 20 7 - 26 mg/dL 03/02/2021 7:40 PM [facility] Creatinine 1.26(H) 0.71 - 1.16 mg/dL 03/02/2021 7:40 PM [facility] Sodium 139 136 - 145 mmol/L 03/02/2021 7:40 PM [facility] Potassium 3.8 3.5 - 4.5 mmol/L 03/02/2021 7:40 PM [facility] Chloride 105 98 - 107 mmol/L 03/02/2021 7:40 PM [facility] CO2 22 22 - 29 mmol/L 03/02/2021 7:40 PM [facility] Glucose 84 70 - 115 mg/dL 03/02/2021 7:40 PM [facility] Calcium 9.1 8.4 - 10.2 mg/dL 03/02/2021 7:40 PM [facility] Anion Gap 16 8 - 18 03/02/2021 7:40 PM [facility] BUN/Creatinine Ratio 16 7 - 23 03/02/2021 7:40 PM [facility] Osmolality Calculated 290 270 - 300 mOsm/kg 03/02/2021 7:40 PM [facility] eGFR by CKD-EPI 73(L) >=90 mL/min/1.7 3 m2 03/02/2021 7:40 PM [facility] Blood BLOOD SPECIMEN / Unknown Venipuncture / Unknown 03/02/2021 6:40 PM CDT 03/02/2021 6:46 PM CDT Delilah Stubbs [employer] ELECTRONIC TEST TECHNICIAN LAB - CHEMISTRY ORDERABLES [facility] [address] [place] [address], [facility] [phone] * (ABNORMAL) BLOOD GASES ART + COOX PANEL (03/02/2021 5:54 AM CDT) pH Arterial 7.52(H) 7.35 - 7.45 pH 03/02/2021 5:58 AM [facility] pO2 Arterial 163(H) 80 - 100 mmHg 03/02/2021 5:58 AM [facility] pCO2 Arterial 27(L) 35 - 45 mmHg 5:58 AM [facility] HCO3 Arterial 22 20 - 30 mmol/l 03/02/2021 5:58 AM [facility] BE Arterial 0.0 -2.0 - 2.0 mmol/L 03/02/2021 5:58 AM [facility] Oxyhemoglobin Arterial 96.4 % 03/02/2021 5:58 AM [facility] Dexoyhemoglobin (HHB) % 0.4 % 03/02/2021 5:58 AM [facility] Methemoglobin 0.9 0.0 - 2.0 % 03/02/2021 5:58 AM [facility] Carboxyhemoglobin 2.4(H) 0.0 - 2.0 % 2020 5:58 AM CDT [facility] O2 Content Arterial 15.1 Interpret within clinical context mg/dL 03/02/2021 5:58 AM CDT [facility] Hemoglobin by COOX 10.9(L) 12.0 - 17.6 g/dL 03/02/2021 5:58 AM CDT [facility] O2 Saturation Arterial 100 [...] BLOOD GASES OR DERABLES [facility] [address] [place] [address], [facility] [phone] * XR CHEST 1VW PORTABLE (03/02/2021 4:22 [...] but stable. Dictated by Uyen Garcia MD (resident medical officer). This report was approved ??by Uyen Garcia [...] but stable. Dictated by Uyen Garcia MD (resident medical officer). This report was approved by Uyen Garcia on 03/02/2021 11:30 AM . I, Dr. JASWINDER CARRION have personally reviewed and interpreted this examination/study. This report was electronically signed by JASWINDER CARRION on 03/02/2021 11:30 AM . Fredy Felipe MD DIAGNOSTIC IMAGING O RDERABLES * (ABNORMAL) DIFFERENTIAL MANUAL (03/01/2021 11:16 PM CDT) WBC (corrected for NRBC) 17.9 10? 3 /uL 03/02/2021 12:17 AM [facility] Total Cell Count 100 03/02/2021 12:17 AM [facility] Neutrophils Absolute Manual 14.50(H) 1.60 - 7.00 10? 3 /uL 03/02/2021 12:17 AM [facility] Comment:(BANDS+SEGS) x WBC = NEUT # (ANC) Lymphocyte Absolute Manual 0.36(L) 1.10 - 3.90 10? 3 /uL 03/02/2021 12:17 AM [facility] Monocytes Absolute Manual 2.51(H) 0.26 - 1.07 10? 3 /uL 03/02/2021 12:17 AM [facility] Eosinophils Absolute Manual 0.36 0.00 - 0.47 10? 3 /uL 03/02/2021 12:17 AM [facility] Basophil Absolute Manual 0.18(H) 0.00 - 0.08 10? 3 /uL 03/02/2021 12:17 AM [facility] Neutrophil % Manual 81(H) 35 - 70 % 03/02/2021 12:17 AM [facility] Lymphocyte % Manual 2(L) 20 - 43 % 03/02/2021 12:17 AM [facility] Monocytes % Manual 14(H) 5 - 13 % 03/02/2021 12:17 AM [facility] Eosinophils % Manual 2 0 - 6 % 03/02/2021 12:17 AM [facility] Basophils % Manual 1 0 - 2 % 03/02/2021 12:17 AM [facility] Platelet Estimate Increased( A) Adequate 03/02/2021 12:17 AM [facility] RBC Morphology Normal 03/02/2021 12:17 AM [facility] Blood BLOOD SPECIMEN / Unknown Venipuncture / Unknown 03/01/2021 11:16 PM CDT 03/01/2021 11:21 PM CDT Fredy Felipe MD LAB - HEMATOLOGY ORD ERABLES [facility] [address] [place] [address], [facility] [phone] * (ABNORMAL) HEPATIC FUNCTION PANEL (03/01/2021 11:16 PM CDT) [facility] Protein Total 6.7 6.0 - 8.3 g/dL 11:46 PM T [facility] Albumin 1.5(L) 3.4 - 5.0 g/dL 03/01/2021 11:46 PM T [facility] Bilirubin Total 0.6 0.2 - 1.2 mg/dL 02/14 11:46 PM T [facility] Bilirubin Conjugated 0.5 0.1 - 0.5 mg/dL 03/01/2021 11:46 PM [facility] Bilirubin Unconjugated 0.1 Unconjugated Bilirubin is a calculated value: Reference ranges have not been established. mg/dL 03/01/2021 11:46 PM [facility] Alkaline Phosphatase 270(H) 40 - 150 U/L 03/01/2021 11:46 PM T [facility] ALT 32 5 - 55 U/L 03/01/2021 11:46 PM [facility] AST 58(H) 5 - 34 U/L 03/01/2021 11:46 PM T [facility] Albumin/Globulin Ratio 0.3(L) 1.1 - 2.3 03/01/2021 11:46 PM T [facility] Blood BLOOD SPECIMEN / Unknown Venipuncture / Unknown 03/01/2021 11:16 PM CDT 03/01/2021 11:21 PM CDT Fredy Felipe MD LAB - CHEMISTRY JOSE ENRIQUE VELA [facility] [address] [place] [address], [facility] [phone] * (ABNORMAL) CBC W AUTO DIFFERENTIAL (03/01/2021 11:16 PM CDT) [facility] WBC 17.9(H) 3.5 - 10.5 10? 3 /uL 03/01/2021 11:29 PM [facility] RBC 3.85(L) 4.30 - 5.70 10? 6 /uL 03/01/2021 11:29 PM [facility] Hemoglobin 10.6(L) 12.0 - 17.6 g/dL 03/01/2021 11:29 PM [facility] Hematocrit 33.0(L) 35.2 - 51.7 % 03/01/2021 11:29 PM [facility] MCV 85.7 80.7 - 98.3 fL 03/01/2021 11:29 PM [facility] MCH 27.5 26.7 - 34.0 pg 03/01/2021 11:29 PM [facility] MCHC 32.1 30.8 - 35.9 g/dL 03/01/2021 11:29 PM [facility] Platelet Count 615(H) 150 - 400 10? 3 /uL 03/01/2021 11:29 PM [facility] RDW-SD 42.8 36.0 - 50.0 fL 03/01/2021 11:29 PM [facility] RDW-CV 13.7 11.2 - 14.8 % 03/01/2021 11:29 PM [facility] MPV 8.7(L) 9.4 - 12.9 fL 03/01/2021 11:29 PM [facility] nRBC Absolute 0.00 0 10? 3 /uL 03/01/2021 11:29 PM [facility] nRBC Auto 0.0 0 /100 WBC 03/01/2021 11:29 PM [facility] Blood BLOOD SPECIMEN / Unknown Venipuncture / Unknown 03/01/2021 11:16 PM CDT 03/01/2021 11:21 PM T Fredy Felipe MD LAB - HEMATOLOGY ORD ERABLES [facility] [address] [place] [address], [facility] [phone] * (ABNORMAL) BASIC METABOLIC PANEL (CALCIUM TOTAL) (03/01/2021 11:16 PM CDT) BUN 21 7 - 26 mg/dL 03/01/2021 11:46 PM [facility] Creatinine 1.35(H) 0.71 - 1.16 mg/dL 03/01/2021 11:46 PM [facility] Sodium 142 136 - 145 mmol/L 03/01/2021 11:46 PM [facility] Potassium 3.7 3.5 - 4.5 mmol/L 03/01/2021 11:46 PM [facility] Chloride 108(H) 98 - 107 mmol/L 03/01/2021 11:46 PM [facility] CO2 20(L) 22 - 29 mmol/L 03/01/2021 11:46 PM [facility] Glucose 93 70 - 115 mg/dL 03/01/2021 11:46 PM [facility] Calcium 9.0 8.4 - 10.2 mg/dL 03/01/2021 11:46 PM [facility] Anion Gap 18 8 - 18 03/01/2021 11:46 PM [facility] BUN/Creatinine Ratio 16 7 - 23 03/01/2021 11:46 PM [facility] Osmolality Calculated 297 270 - 300 mOsm/kg 03/01/2021 11:46 PM [facility] eGFR by CKD-EPI 68(L) >=90 mL/min/1.7 3 m2 03/01/2021 11:46 PM [facility] Blood BLOOD SPECIMEN / Unknown Venipuncture / Unknown 03/01/2021 11:16 PM CDT 03/01/2021 11:21 PM CDT Fredy Felipe MD LAB - CHEMISTRY JOSE ENRIQUE Pena Organization Address City/State/ZIP Co de Phone Number [facility] [address] [place] [address], [facility] [phone] * (ABNORMAL) BLOOD GASES ART + COOX PANEL (03/01/2021 11:16 PM CDT) pH Arterial 7.58(H) 7.35 - 7.45 pH 03/01/2021 11:22 PM [facility] pO2 Arterial 164(H) 80 - 100 mmHg 03/01/2021 11:22 PM [facility] pCO2 Arterial 24(L) 35 - 45 mmHg 11:22 PM [facility] HCO3 Arterial 23 20 - 30 mmol/l 03/01/2021 11:22 PM [facility] BE Arterial 1.7 -2.0 - 2.0 mmol/L 03/01/2021 11:22 PM [facility] Oxyhemoglobin Arterial 96.4 % 03/01/2021 11:22 PM [facility] Dexoyhemoglobin (HHB) % 0.4 % 03/01/2021 11:22 PM [facility] Methemoglobin 1.3 0.0 - 2.0 % 03/01/2021 11:22 PM [facility] Carboxyhemoglobin 1.9 0.0 - 2.0 % 2020 11:22 PM [facility] O2 Content Arterial 15.8 Interpret within clinical context mg/dL 03/01/2021 11:22 PM [facility] Hemoglobin by COOX 11.4(L) 12.0 - 17.6 g/dL 03/01/2021 11:22 PM [facility] O2 Saturation Arterial 100 90 - 100 % 03/01/2021 11:22 PM [facility] FI O2 Arterial 40.0 % 03/01/2021 11:22 PM [facility] Blood, arterial ARTERIAL BLOOD SPECIMEN / Unknown Arterial Puncture / Unknown 03/01/2021 11:16 PM T 03/01/2021 11:20 PM [facility] - 03/01/2021 11:22 PM [facility] Carboxyhemoglobin Normal Concentration: Non-smokers: 0-2%; Smokers: 0-9%; Toxic: >20% Fredy Felipe MD LAB - BLOOD GASES OR DERABLES [address] [address], [facility] [phone] * (ABNORMAL) PT-INR [facility] (03/01/2021 11:16 PM CDT) PT 14.9(H) 12.1 - 14.8 Seconds 03/01/2021 11:34 PM CDT [facility] INR 1.2 See Comment 03/01/2021 11:34 [...] Felipe MD LAB - COAGULATION OR DERABLES [address] [address], [facility] [phone] * PHOSPHORUS BLOOD (03/01/2021 11:16 PM CDT) Phosphorus 3.7 2.8 - 5.1 mg/dL 03/01/2021 11:46 PM CDT [facility] Blood BLOOD SPECIMEN / Unknown Venipuncture / Unknown 03/01/2021 11:16 PM CDT 03/01/2021 11:21 PM CDT Fredy Felipe MD LAB - CHEMISTRY ORDE RABLES [address] [address], [facility] [phone] * MAGNESIUM BLOOD (03/01/2021 11:16 PM CDT) Magnesium 2.1 1.6 - 2.6 mg/dL 03/01/2021 11:46 PM CDT [facility] Blood BLOOD SPECIMEN / Unknown Venipuncture / Unknown 03/01/2021 11:16 PM CDT 03/01/2021 11:21 PM CDT Fredy Felipe MD LAB - CHEMISTRY JOSE ENRIQUE VELA Performing Organization Address [facility] Co de Phone Number [address] [address], [facility] [phone] * (ABNORMAL) CALCIUM IONIZED WHOLE BLOOD (03/01/2021 [...] CHEMISTRY JOSE ENRIQUE VELA Performing Organization Address [facility] Co de Phone Number [address] [address], [facility] [phone] * XR CHEST 1VW PORTABLE (03/01/2021 4:20 [...] Hernandez M.D. (resident) Dr. NAOMY Yao MD, [facility] [...] signed by NAOMY LAZO MD, KEN on 03/03/2021 3:30 PM . Fredy Felipe MD DIAGNOSTIC IMAGING O RDERABLES * (ABNORMAL) DIFFERENTIAL MANUAL (03/01/2021 12:11 AM CDT) WBC (corrected for NRBC) 15.6 10? 3 /uL 03/01/2021 1:34 AM CDT [facility] Total Cell Count 100 03/01/2021 1:34 AM [facility] Neutrophils Absolute Manual 12.01(H) 1.60 - 7.00 10? 3 /uL 03/01/2021 1:34 AM CDT [facility] Comment:(BANDS+SEGS) x WBC = NEUT # (ANC) Lymphocyte Absolute Manual 1.09(L) 1.10 - 3.90 10? 3 /uL 03/01/2021 1:34 AM T [facility] Monocytes Absolute Manual 1.87(H) 0.26 - 1.07 10? 3 /uL 03/01/2021 1:34 AM [facility] Eosinophils Absolute Manual 0.62(H) 0.00 - 0.47 10? 3 /uL 03/01/2021 1:34 AM [facility] Neutrophil % Manual 77(H) 35 - 70 % 03/01/2021 1:34 AM [facility] Lymphocyte % Manual 7(L) 20 - 43 % 03/01/2021 1:34 AM [facility] Monocytes % Manual 12 5 - 13 % 03/01/2021 1:34 AM [facility] Eosinophils % Manual 4 0 - 6 % 03/01/2021 1:34 AM [facility] Platelet Estimate Increased( A) Adequate 03/01/2021 1:34 AM [facility] RBC Morphology Normal 03/01/2021 1:34 AM [facility] Blood BLOOD SPECIMEN / Unknown Venipuncture / Unknown 03/01/2021 12:11 AM CDT 03/01/2021 12:18 AM CDT Fredy Felipe MD LAB - HEMATOLOGY ORD ERABLES Performing Organization Address City/State/[facility] Co de Phone Number [facility] [address] [place] [address], [facility] [phone] * (ABNORMAL) CBC W AUTO DIFFERENTIAL (03/01/2021 12:11 AM CDT) WBC 15.6(H) 3.5 - 10.5 10? 3 /uL 03/01/2021 12:42 AM [facility] RBC 3.88(L) 4.30 - 5.70 10? 6 /uL 03/01/2021 12:42 AM [facility] Hemoglobin 10.6(L) 12.0 - 17.6 g/dL 03/01/2021 12:42 AM [facility] Hematocrit 32.8(L) 35.2 - 51.7 % 03/01/2021 12:42 AM [facility] MCV 84.5 80.7 - 98.3 fL 03/01/2021 12:42 AM [facility] MCH 27.3 26.7 - 34.0 pg 03/01/2021 12:42 AM [facility] MCHC 32.3 30.8 - 35.9 g/dL 03/01/2021 12:42 AM [facility] Platelet Count 573(H) 150 - 400 10? 3 /uL 03/01/2021 12:42 AM [facility] RDW-SD 42.7 36.0 - 50.0 fL 03/01/2021 12:42 AM [facility] RDW-CV 13.7 11.2 - 14.8 % 03/01/2021 12:42 AM [facility] MPV 8.8(L) 9.4 - 12.9 fL 03/01/2021 12:42 AM [facility] nRBC Absolute 0.00 0 10? 3 /uL 03/01/2021 12:42 AM [facility] nRBC Auto 0.0 0 /100 WBC 03/01/2021 12:42 AM [facility] Immature Platelet Fraction 0.6(L) 1.1 - 6.2 % 03/01/2021 12:42 AM [facility] Blood BLOOD SPECIMEN / Unknown Venipuncture / Unknown 03/01/2021 12:11 AM CDT 03/01/2021 12:18 AM CDT Fredy Felipe MD LAB - HEMATOLOGY ORD ERABLES [facility] [address] [place] [address], [facility] [phone] * (ABNORMAL) BASIC METABOLIC PANEL (CALCIUM TOTAL) (03/01/2021 12:11 AM CDT) BUN 23 7 - 26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 [facility] Creatinine 1.54(H) 0.71 - 1.16 mg/dL 02/25/2021 11:24 PM [facility] Sodium 134(L) 136 - 145 mmol/L 02/25/2021 11:24 PM [facility] Potassium 5.4(H) 3.5 - 4.5 mmol/L 02/25/2021 11:24 PM [facility] Chloride 103 98 - 107 mmol/L 02/25/2021 11:24 PM [facility] CO2 21(L) 22 - 29 mmol/L 02/25/2021 11:24 PM [facility] Glucose 160(H) 70 - 115 mg/dL 02/25/2021 11:24 PM [facility] Calcium 8.4 8.4 - 10.2 mg/dL 02/25/2021 11:24 PM [facility] Anion Gap 15 8 - 18 02/25/2021 11:24 PM [facility] BUN/Creatinine Ratio 14 7 - 23 02/25/2021 11:24 PM [facility] Osmolality Calculated 284 270 - 300 mOsm/kg 02/25/2021 11:24 PM [facility] eGFR by CKD-EPI 58(L) >=90 mL/min/1.7 3 m2 02/25/2021 11:24 PM [facility] Blood BLOOD SPECIMEN / Unknown Venipuncture / Unknown 02/25/2021 10:54 PM CDT 02/25/2021 10:57 PM CDT Fredy Felipe MD LAB - CHEMISTRY JOSE ENRIQUE [place]ena Organization Address City/State/ZIP Co de Phone Number [facility] [address] [place] [address], [place] [phone] * (ABNORMAL) BLOOD GASES ART + COOX PANEL (02/25/2021 10:54 PM CDT) pH Arterial 7.49(H) 7.35 - 7.45 pH 02/25/2021 10:59 PM [facility] pO2 Arterial 110(H) 80 - 100 mmHg 02/25/2021 10:59 PM [facility] pCO2 Arterial 31(L) 35 - 45 mmHg 10:59 PM [facility] HCO3 Arterial 24 20 - 30 mmol/l 02/25/2021 10:59 PM [facility] BE Arterial 0.9 -2.0 - 2.0 mmol/L 02/25/2021 10:59 PM [facility] Oxyhemoglobin Arterial 96.9 % 02/25/2021 10:59 PM [facility] Dexoyhemoglobin (HHB) % 0.4 % 02/25/2021 10:59 PM [facility] Methemoglobin 1.0 0.0 - 2.0 % 02/25/2021 10:59 PM [facility] Carboxyhemoglobin 1.7 0.0 - 2.0 % 2020 10:59 PM [facility] O2 Content Arterial 17.6 Interpret within clinical context mg/dL 02/25/2021 10:59 PM [facility] Hemoglobin by COOX 12.8 12.0 - 17.6 g/dL 02/25/2021 10:59 PM [facility] O2 Saturation Arterial 100 90 - 100 % 02/25/2021 10:59 PM [facility] FI O2 Arterial 45.0 % 02/25/2021 10:59 PM [facility] Blood, arterial ARTERIAL BLOOD SPECIMEN / Unknown Arterial Puncture / Unknown 02/25/2021 10:54 PM CDT 02/25/2021 10:57 PM CDT Narrative [facility] - 02/25/2021 10:59 PM CDT Carboxyhemoglobin Normal Concentration: Non-smokers: 0-2%; Smokers: 0-9%; Toxic: >20% Fredy Felipe MD LAB - BLOOD GASES OR DERABLES Performing Organization Address [facility] de Phone Number [address] [address], [facility] [phone] * (ABNORMAL) PT-INR [facility] (02/25/2021 10:54 PM CDT) PT 15.3(H) [...] - COAGULATION OR DERABLES Performing Organization Address City/[facility] Co de Phone Number [address] [address], [facility] [phone] * PHOSPHORUS BLOOD (02/25/2021 10:54 PM CDT) Phosphorus 4.3 2.8 - 5.1 mg/dL 02/25/2021 11:24 PM CDT [facility] Blood BLOOD SPECIMEN / Unknown Venipuncture / Unknown 02/25/2021 10:54 PM CDT 02/25/2021 10:57 PM CDT Fredy Felipe MD LAB - CHEMISTRY JOSE ENRIQUE VELA [address] [address], [place] [phone] * MAGNESIUM BLOOD (02/25/2021 10:54 PM CDT) Pathologist [facility] Magnesium 2.3 1.6 - 2.6 mg/dL 02/25/2021 11:24 PM CDT [facility] Blood BLOOD SPECIMEN / Unknown Venipuncture / Unknown 02/25/2021 10:54 PM CDT 02/25/2021 10:57 PM CDT Fredy Felipe MD LAB - CHEMISTRY JOSE ENRIQUE VELA [address] [address], [facility] [phone] * (ABNORMAL) CALCIUM IONIZED WHOLE BLOOD (02/25/2021 10:54 PM CDT) [facility] Calcium Ionized 1.08 mmol/L 02/25/2021 10:59 PM CDT [facility] pH 7.49(H) 7.35 - 7.45 pH 02/25/2021 10:59 PM CDT [facility] Ionized Calcium pH Adjusted 1.12(L) 1.19 - 1.34 mmol/L 02/25/2021 10:59 PM CDT [facility] Blood BLOOD SPECIMEN / Unknown Venipuncture / Unknown 02/25/2021 10:54 PM CDT 02/25/2021 10:57 PM CDT Fredy Felipe MD LAB - CHEMISTRY JOSE ENRIQUE VELA [address] [address], [place] [phone] * (ABNORMAL) CULTURE RESPIRATORY+GRAM STAIN (STL) (02/25/2021 3:39 PM CDT) [facility] Culture Moderate Klebsiella (formerly Enterobacter) aerogenes(A) CALISTA 02/27/2021 11:50 AM CDT [facility] Culture Moderate Haemophilus influenzae(A) 02/27/2021 11:50 AM CDT [facility] Comment:Beta-lactamase negat elvira Culture Rare normal oropharyngeal zi CALISTA 02/27/2021 11:50 AM CDT [facility] Gram Stain Light Gram-negative bacilli 02/27/2021 11:50 AM CDT [facility] Gram Stain Rare Polymorphonuclear cells 02/27/2021 11:50 AM T [facility] Microbiology SPECIMEN FROM ENDOTRACHEAL TUBE / Unknown Collection / Unknown 02/25/2021 3:39 PM CDT 02/25/2021 3:59 PM CDT Narrative [facility] - 02/27/2021 11:50 AM CDT Enterobacter, [...] le CALISTA <=20 ug/mL: Susceptible Delilah JEFFERY ELECTRONIC TEST TECHNICIAN LAB - MICROBIOLOGY ORDERABLES [facility] [address] [place] [address], [facility] [phone] * (ABNORMAL) URINALYSIS REFLEX TO MICROSCOPIC NO CULTURE (02/25/2021 5:39 AM T) Color UA Janis(A) Straw, Yellow 02/25/2021 5:57 AM [facility] Clarity UA Cloudy(A) Clear 02/25/2021 5:57 AM [facility] Specific Palmer UA 1.021 1.005 - 1.030 02/25/2021 5:57 AM [facility] pH UA 5.0 5.0 - 8.0 pH 02/25/2021 5:57 AM [facility] Protein UA 2+(A) Negative 02/25/2021 5:57 AM [facility] Glucose UA Negative Negative 02/25/2021 5:57 AM [facility] Ketone UA Negative Negative 02/25/2021 5:57 AM [facility] Bilirubin UA Negative Negative 02/25/2021 5:57 AM [facility] Blood UA 3+(A) Negative 02/25/2021 5:57 AM [facility] Nitrite UA Negative Negative 02/25/2021 5:57 AM [facility] Leukocyte Esterase 2+(A) Negative 02/25/2021 5:57 AM [facility] Urobilinogen UA Negative Negative mg/dL 02/25/2021 5:57 AM [facility] RBC UA >100(A) None Seen, 0-2, 3-5 /HPF 02/25/2021 5:57 AM [facility] WBC UA 51-100(A) None Seen, 0-5 /HPF 02/25/2021 5:57 AM [facility] WBC Clumps Occasional( A) None /HPF 02/25/2021 5:57 AM [facility] Bacteria UA 3+(A) None /HPF 02/25/2021 5:57 AM [facility] Squamous Epithelial Cells UA 0-2 None Seen, 0-2, 3-5 /HPF 02/25/2021 5:57 AM [facility] Mucus UA 1+ /LPF 02/25/2021 5:57 AM [facility] Urine URINE SPECIMEN OBTAINED VIA [facility] / Unknown Collection / Unknown 02/25/2021 5:39 AM CDT 02/25/2021 5:49 AM CDT Narrative [facility] - 02/25/2021 5:57 AM CDT Delilah SilvaLilibeth [employer] OF [employer] ELECTRONIC TEST TECHNICIAN LAB - URINALYSIS ORDERABLES Performing Organization Address [facility] Co de Phone Number [facility] [address] [place] [address], [facility] [phone] * XR CHEST 1VW PORTABLE (02/25/2021 5:29 AM CDT) Anatomical Region Laterality Modality Chest Radiographic Esra ging 02/25/2021 10:5 5 AM CDT Impressions [...] is stable. Dictated by Rico Sawant DO (resident medical officer). I, Dr. TAINA PAVON have personally reviewed [...] is stable. Dictated by Rico Sawant DO (resident medical officer). I, Dr. TAINA PAVON have personally reviewed and interpreted this examination/study. This report was electronically signed by TAINA PAVON on 02/25/2021 2:15 PM . Fredy Felipe MD DIAGNOSTIC IMAGING O RDERABLES * (ABNORMAL) BCID PANEL (02/25/2021 5:25 AM CDT) Staphylococcus Detected(A) Not Detected, Indetermin ate, Invalid 02/26/2021 11:56 AM CDT [facility] Comment:Coagulase-negative s taphylococci (CoNS) detected by nucleic acid testing. CoNS are the most common skin contaminants grown in blood cultures and positive results must be interpreted in the appropriate clinical context. Susceptibilty testing performed on clinically significant isolates. Staphylococcus aureus Not Detected Not Detected, Indetermin ate, Invalid 02/26/2021 11:56 AM CDT [facility] Enterococcus Not Detected Not Detected, Indetermin ate, Invalid 02/26/2021 11:56 AM CDT [facility] Streptococcus Not Detected Not Detected, [...] Not Detected, Invalid 02/26/2021 11:56 AM CDT [facility] Blood PERIPHERAL BLOOD / Unknown Venipuncture / Unknown 02/25/2021 5:25 AM CDT 02/25/2021 5:30 AM CDT Delilah JEFFERY ELECTRONIC TEST TECHNICIAN LAB - MICROBIOLOGY ORDERABLES Performing Organization Address City/[facility] Co de Phone Number [facility] MICROBIOLOGY [address] [place] [address], [facility] [phone] * (ABNORMAL) CULTURE BLOOD (02/25/2021 5:25 AM CDT) Culture Growth of Staphylococcus lugdunensis(AA) [place]IST[place] 03/02/2021 8:09 AM CDT [facility] MICROBIOLOGY Comment:Possible contaminant unless multiple cultures are positive for the same isolate. Blood PERIPHERAL BLOOD / Unknown Venipuncture / Unknown 02/25/2021 5:25 AM CDT 02/25/2021 5:30 AM CDT Narrative [facility] MICROBIOLOGY - 03/02/2021 8:09 AM CDT Positive at 1 day and 1 hour Delilah JEFFERY NP LAB - MICROBIOLOGY ORDERABLES Performing Organization Address [facility] de Phone Number [facility] MICROBIOLOGY [address] [place] [address], [facility] [phone] * CULTURE BLOOD (02/25/2021 5:16 AM CDT) Pathologist [facility] Culture No growth day 5 [place]ISTA 03/02/2021 8:00 AM CDT [facility] MICROBIOLOGY Blood PERIPHERAL BLOOD / Unknown Venipuncture / Unknown 02/25/2021 5:16 AM CDT 02/25/2021 5:30 AM CDT Delilah JEFFERY ELECTRONIC TEST TECHNICIAN LAB - MICROBIOLOGY ORDERABLES Performing Organization Address City/[facility] Co de Phone Number [facility] MICROBIOLOGY [address] [place] [address], [facility] [phone] * (ABNORMAL) CBC W AUTO DIFFERENTIAL (02/25/2021 2:36 AM CDT) WBC 27.1(H) 3.5 - 10.5 10? 3 /uL 02/25/2021 3:03 AM [facility] Comment:All CBC parameters h ave been checked. RBC 4.89 4.30 - 5.70 10? 6 /uL 02/25/2021 3:03 AM [facility] Hemoglobin 13.7 12.0 - 17.6 g/dL 02/25/2021 3:03 AM [facility] Hematocrit 42.9 35.2 - 51.7 % 02/25/2021 3:03 AM [facility] MCV 87.7 80.7 - 98.3 fL 02/25/2021 3:03 AM [facility] MCH 28.0 26.7 - 34.0 pg 02/25/2021 3:03 AM [facility] MCHC 31.9 30.8 - 35.9 g/dL 02/25/2021 3:03 AM [facility] Platelet Count 487(H) 150 - 400 10? 3 /uL 02/25/2021 3:03 AM [facility] RDW-SD 44.1 36.0 - 50.0 fL 02/25/2021 3:03 AM [facility] RDW-CV 13.7 11.2 - 14.8 % 02/25/2021 3:03 AM [facility] MPV 9.0(L) 9.4 - 12.9 fL 02/25/2021 3:03 AM [facility] nRBC Absolute 0.00 0 10? 3 /uL 02/25/2021 3:03 AM [facility] nRBC Auto 0.0 0 /100 WBC 02/25/2021 3:03 AM [facility] Neutrophils % 88.7(H) 35.0 - 70.0 % 02/25/2021 3:03 AM [facility] Lymphocytes % 4.1(L) 20.0 - 43.0 % 02/25/2021 3:03 AM [facility] Monocytes % 2.8(L) 5.0 - 13.0 % 02/25/2021 3:03 AM [facility] Eosinophils % 2.2 0.0 - 6.0 % 02/25/2021 3:03 AM CDT [facility] Basophil % 0.4 0.0 - 2.0 % 02/25/2021 3:03 AM [facility] Neutrophils Absolute 24.0(H) 1.6 - 7.0 10? 3 /uL 02/25/2021 3:03 AM [facility] Lymphocyte Absolute 1.1 1.1 - 3.9 10? 3 /uL 02/25/2021 3:03 AM [facility] Monocytes Absolute 0.77 0.26 - 1.07 10? 3 /uL 02/25/2021 3:03 AM [facility] Eosinophils Absolute 0.59(H) 0.00 - 0.47 10? 3 /uL 02/25/2021 3:03 AM [facility] Basophils Absolute 0.10(H) 0.00 - 0.08 10? 3 /uL 02/25/2021 3:03 AM [facility] Immature Granulocytes % 1.8(H) 0.0 - 1.0 % 02/25/2021 3:03 AM [facility] Immature Granulocytes Absolute 0.50 02/25/2021 3:03 AM [facility] Blood BLOOD SPECIMEN / Unknown Venipuncture / Unknown 02/25/2021 2:36 AM CDT 02/25/2021 2:46 AM CDT Fredy Felipe MD LAB - HEMATOLOGY ORD ERABLES Performing Organization Address [facility] Co de Phone Number [address] [address], [facility] [phone] * (ABNORMAL) BASIC METABOLIC PANEL (CALCIUM TOTAL) (02/25/2021 2:36 AM CDT) BUN 7 7 - 26 mg/dL 02/25/2021 3:11 AM [facility] Creatinine 1.02 0.71 - 1.16 mg/dL 02/25/2021 3:11 AM [facility] Sodium 137 136 - 145 mmol/L 02/25/2021 3:11 AM [facility] Potassium 4.8(H) 3.5 - 4.5 mmol/L 02/25/2021 3:11 AM [facility] Chloride 103 98 - 107 mmol/L 02/25/2021 3:11 AM [facility] CO2 21(L) 22 - 29 mmol/L 02/25/2021 3:11 AM [facility] Glucose 142(H) 70 - 115 mg/dL 02/25/2021 3:11 AM [facility] Calcium 8.8 8.4 - 10.2 mg/dL 02/25/2021 3:11 AM [facility] Anion Gap 18 8 - 18 02/25/2021 3:11 AM [facility] BUN/Creatinine Ratio 7 7 - 23 02/25/2021 3:11 AM [facility] Osmolality Calculated 284 270 - 300 mOsm/kg 02/25/2021 3:11 AM [facility] eGFR by CKD-EPI >90 >=90 mL/min/1.7 3 m2 02/25/2021 3:11 AM [facility] Blood BLOOD SPECIMEN / Unknown Venipuncture / Unknown 02/25/2021 2:36 AM CDT 02/25/2021 2:46 AM CDT Fredy Felipe MD LAB - CHEMISTRY JOSE ENRIQUE VELA [facility] Organization Address City/State/ZIP Co de Phone Number [facility] [address] [place] [address], [facility] [phone] * (ABNORMAL) BLOOD GASES ART + COOX PANEL (02/25/2021 2:36 AM CDT) pH Arterial 7.40 7.35 - 7.45 pH 02/25/2021 2:49 AM [facility] pO2 Arterial 119(H) 80 - 100 mmHg 02/25/2021 2:49 AM [facility] pCO2 Arterial 39 35 - 45 mmHg 2:49 AM [facility] HCO3 Arterial 24 20 - 30 mmol/l 02/25/2021 2:49 AM [facility] BE Arterial -0.5 -2.0 - 2.0 mmol/L 02/25/2021 2:49 AM [facility] Oxyhemoglobin Arterial 96.4 % 02/25/2021 2:49 AM [facility] Dexoyhemoglobin (HHB) % 0.5 % 02/25/2021 2:49 AM [facility] Methemoglobin 1.4 0.0 - 2.0 % 02/25/2021 2:49 AM [facility] Carboxyhemoglobin 1.7 0.0 - 2.0 % 2020 2:49 AM [facility] O2 Content Arterial 19.3 Interpret within clinical context mg/dL 02/25/2021 2:49 AM [facility] Hemoglobin by COOX 14.1 12.0 - 17.6 g/dL 02/25/2021 2:49 AM [facility] O2 Saturation Arterial 100 90 - 100 % 02/25/2021 2:49 AM [facility] FI O2 Arterial 60.0 % 02/25/2021 2:49 AM [facility] Blood, arterial ARTERIAL BLOOD SPECIMEN / Unknown Arterial Puncture / Unknown 02/25/2021 2:36 AM CDT 02/25/2021 2:46 AM [facility] - 02/25/2021 2:49 AM [facility] Carboxyhemoglobin Normal Concentration: Non-smokers: 0-2%; Smokers: 0-9%; Toxic: >20% Fredy Felipe MD LAB - BLOOD GASES OR DERABLES [facility] [address] [place] [address], [facility] [phone] * PT-INR [facility] (02/25/2021 2:36 AM CDT) PT 13.5 12.1 - 14.8 Seconds 02/25/2021 3:01 AM [facility] INR 1.1 See Comment 02/25/2021 3:01 AM [facility] Comment:The suggested therap eutic range for standard coumadin (warfarin) therapy is an INR of 2.0-3.0. For high-risk patients (Mechanical Mitral Valve Prosthesis, etc.), the suggested prophylactic therapeutic range is an INR of 2.5-3.5. Blood BLOOD SPECIMEN / Unknown Venipuncture / Unknown 02/25/2021 2:36 AM CDT 02/25/2021 2:46 AM CDT Fredy Felipe MD LAB - COAGULATION OR DERABLES Performing Organization Address [facility] Co de Phone Number [address] [address], [facility] [phone] * PHOSPHORUS BLOOD (02/25/2021 2:36 AM CDT) Phosphorus 4.8 2.8 - 5.1 mg/dL 02/25/2021 3:11 AM CDT [facility] Blood BLOOD SPECIMEN / Unknown Venipuncture / Unknown 02/25/2021 2:36 AM CDT 02/25/2021 2:46 AM CDT Fredy Felipe MD LAB - CHEMISTRY JOSE ENRIQUE VELA Performing Organization Address [facility] de Phone Number [address] [address], [facility] [phone] * MAGNESIUM BLOOD (02/25/2021 2:36 AM CDT) Magnesium 1.6 1.6 - 2.6 mg/dL 02/25/2021 3:11 AM CDT [facility] Blood BLOOD SPECIMEN / Unknown Venipuncture / Unknown 02/25/2021 2:36 AM CDT 02/25/2021 2:46 AM CDT Fredy Felipe MD LAB - CHEMISTRY JOSE ENRIQUE VELA Performing Organization Address [facility] Co de Phone Number [address] [address], [place] [phone] * (ABNORMAL) CALCIUM IONIZED WHOLE BLOOD (02/25/2021 2:36 AM CDT) Calcium Ionized 1.10 mmol/L 02/25/2021 2:49 AM CDT [facility] pH 7.42 7.35 - 7.45 pH 02/25/2021 2:49 AM CDT [facility] Ionized Calcium pH Adjusted 1.11(L) 1.19 - 1.34 mmol/L 02/25/2021 2:49 AM CDT [facility] Blood BLOOD SPECIMEN / Unknown Venipuncture / Unknown 02/25/2021 2:36 AM CDT 02/25/2021 2:46 AM CDT Fredy Felipe MD LAB - CHEMISTRY JOSE ENRIQUE VELA [facility] [address] [place] [address], [facility] [phone] * XR ABDOMEN KUB PORTABLE (02/25/2021 1:32 AM CDT) Anatomical Region Laterality Modality Abdomen Radiographic Sera ging 02/25/2021 8:31 AM CDT Impressions 02/25/2021 1:30 PM CDT IMPRESSION: Examination limited by patient's obesity. Non-obstructive bowel gas pattern, no evidence of retained surgical material. Dictated by Rico Sawant D.O. (Outpatient Physical Therapist) I, Dr. TAINA PAVON have personally reviewed [...] surgical material. Dictated by Rico Sawant D.O. (Outpatient Physical Therapist) I, Dr. TAINA PAVON have personally reviewed and interpreted this examination/study. This report was electronically signed by TAINA PAVON on 02/25/2021 1:30 PM . Nena Obrien DO DIAGNOSTIC IMAGING O RDERABLES * TYPE + SCREEN PANEL (02/24/2021 10:10 AM CDT) Antibody Screen NEG 11:29 AM CDT [facility] ABO Rh O POS 02/24/2021 11:29 AM CDT [facility] Blood Bank BLOOD SPECIMEN / Unknown Venipuncture / Unknown 02/24/2021 10:10 AM CDT 02/24/2021 10:35 AM CDT Mario Garcia MD LAB - BLOOD BANK ORD ERABLES [facility] [address] [place] [address], [facility] [phone] * XR CHEST 1VW PORTABLE (02/24/2021 5:51 [...] Report dictated by Simone Alexander MD, PhD (resident medical officer). I, Dr. TAINA PAVON have personally reviewed [...] Report dictated by Simone Alexander MD, PhD (resident medical officer). I, Dr. TAINA PAVON have personally reviewed and interpreted this examination/study. This report was electronically signed by TAINA PAVON on 02/25/2021 1:44 PM . Fredy Felipe MD DIAGNOSTIC IMAGING O RDERABLES * (ABNORMAL) CBC W AUTO DIFFERENTIAL (02/24/2021 12:28 AM CDT) WBC 13.9(H) 3.5 - 10.5 10? 3 /uL 02/24/2021 12:42 AM [facility] RBC 4.24(L) 4.30 - 5.70 10? 6 /uL 02/24/2021 12:42 AM [facility] Hemoglobin 11.8(L) 12.0 - 17.6 g/dL 02/24/2021 12:42 AM [facility] Hematocrit 36.4 35.2 - 51.7 % 02/24/2021 12:42 AM [facility] MCV 85.8 80.7 - 98.3 fL 02/24/2021 12:42 AM [facility] MCH 27.8 26.7 - 34.0 pg 02/24/2021 12:42 AM [facility] MCHC 32.4 30.8 - 35.9 g/dL 02/24/2021 12:42 AM [facility] Platelet Count 402(H) 150 - 400 10? 3 /uL 02/24/2021 12:42 AM [facility] RDW-SD 42.7 36.0 - 50.0 fL 02/24/2021 12:42 AM [facility] RDW-CV 13.8 11.2 - 14.8 % 02/24/2021 12:42 AM [facility] MPV 9.0(L) 9.4 - 12.9 fL 02/24/2021 12:42 AM [facility] nRBC Absolute 0.00 0 10? 3 /uL 02/24/2021 12:42 AM [facility] nRBC Auto 0.0 0 /100 WBC 02/24/2021 12:42 AM [facility] Neutrophils % 76.6(H) 35.0 - 70.0 % 02/24/2021 12:42 AM [facility] Lymphocytes % 10.0(L) 20.0 - 43.0 % 02/24/2021 12:42 AM [facility] Monocytes % 7.6 5.0 - 13.0 % 02/24/2021 12:42 AM [facility] Eosinophils % 3.8 0.0 - 6.0 % 02/24/2021 12:42 AM [facility] Basophil % 0.4 0.0 - 2.0 % 02/24/2021 12:42 AM [facility] Neutrophils Absolute 10.7(H) 1.6 - 7.0 10? 3 /uL 02/24/2021 12:42 AM [facility] Lymphocyte Absolute 1.4 1.1 - 3.9 10? 3 /uL 02/24/2021 12:42 AM [facility] Monocytes Absolute 1.06 0.26 - 1.07 10? 3 /uL 02/24/2021 12:42 AM [facility] Eosinophils Absolute 0.53(H) 0.00 - 0.47 10? 3 /uL 02/24/2021 12:42 AM [facility] Basophils Absolute 0.05 0.00 - 0.08 10? 3 /uL 02/24/2021 12:42 AM [facility] Immature Granulocytes % 1.6(H) 0.0 - 1.0 % 02/24/2021 12:42 AM [facility] Immature Granulocytes Absolute 0.22 02/24/2021 12:42 AM [facility] Blood BLOOD SPECIMEN / Unknown Venipuncture / Unknown 02/24/2021 12:28 AM T 02/24/2021 12:37 AM [facility] Fredy Felipe MD LAB - HEMATOLOGY ORD ERABLES [facility] [address] [place] [address], [facility] [phone] * (ABNORMAL) BASIC METABOLIC PANEL (CALCIUM TOTAL) (02/24/2021 12:28 AM CDT) [facility] BUN 6(L) 7 - 26 mg/dL 02/24/2021 1:02 AM [facility] Creatinine 0.65(L) 0.71 - 1.16 mg/dL 02/24/2021 1:02 AM [facility] Sodium 138 136 - 145 mmol/L 02/24/2021 1:02 AM [facility] Potassium 4.2 3.5 - 4.5 mmol/L 02/24/2021 1:02 AM [facility] Chloride 103 98 - 107 mmol/L 02/24/2021 1:02 AM [facility] CO2 25 22 - 29 mmol/L 02/24/2021 1:02 AM [facility] Glucose 131(H) 70 - 115 mg/dL 02/24/2021 1:02 AM [facility] Calcium 8.4 8.4 - 10.2 mg/dL 02/24/2021 1:02 AM [facility] Anion Gap 14 8 - 18 02/24/2021 1:02 AM [facility] BUN/Creatinine Ratio 9 7 - 23 02/24/2021 1:02 AM [facility] Osmolality Calculated 285 270 - 300 mOsm/kg 02/24/2021 1:02 AM [facility] eGFR by CKD-EPI >90 >=90 mL/min/1.7 3 m2 02/24/2021 1:02 AM [facility] Blood BLOOD SPECIMEN / Unknown Venipuncture / Unknown 02/24/2021 12:28 AM CDT 02/24/2021 12:37 AM CDT Fredy Felipe MD LAB - CHEMISTRY JOSE ENRIQUE VELA [facility] Organization Address City/State/ZIP Co de Phone Number [facility] [address] [place] [address], [facility] [phone] * (ABNORMAL) BLOOD GASES ART + COOX PANEL (02/24/2021 12:28 AM CDT) [facility] pH Arterial 7.44 7.35 - 7.45 pH 02/24/2021 12:37 AM [facility] pO2 Arterial 110(H) 80 - 100 mmHg 02/24/2021 12:37 AM [facility] pCO2 Arterial 41 35 - 45 mmHg 12:37 AM [facility] HCO3 Arterial 28 20 - 30 mmol/l 02/24/2021 12:37 AM [facility] BE Arterial 3.3(H) -2.0 - 2.0 mmol/L 02/24/2021 12:37 AM [facility] Oxyhemoglobin Arterial 96.5 % 02/24/2021 12:37 AM [facility] Dexoyhemoglobin (HHB) % 1.0 % 02/24/2021 12:37 AM [facility] Methemoglobin <0.8 0.0 - 2.0 % 02/24/2021 12:37 AM [facility] Carboxyhemoglobin 1.8 0.0 - 2.0 % 2020 12:37 AM [facility] O2 Content Arterial 16.6 Interpret within clinical context mg/dL 02/24/2021 12:37 AM [facility] Hemoglobin by COOX 12.1 12.0 - 17.6 g/dL 02/24/2021 12:37 AM [facility] O2 Saturation Arterial 99 90 - 100 % 02/24/2021 12:37 AM [facility] FI O2 Arterial 45.0 % 02/24/2021 12:37 AM [facility] Blood, arterial ARTERIAL BLOOD SPECIMEN / Unknown Arterial Puncture / Unknown 02/24/2021 12:28 AM CDT 02/24/2021 12:34 AM [facility] - 02/24/2021 12:37 AM [facility] Carboxyhemoglobin Normal Concentration: Non-smokers: 0-2%; Smokers: 0-9%; Toxic: >20% Fredy Felipe MD LAB - BLOOD GASES OR DERABLES [facility] [address] [place] [address], [facility] [phone] * PT-INR [facility] (02/24/2021 12:28 AM CDT) PT 14.2 12.1 - 14.8 Seconds 02/24/2021 12:45 AM CDT [facility] INR 1.1 See Comment 02/24/2021 12:45 [...] Felipe MD LAB - COAGULATION OR DERABLES [address] [address], [facility] [phone] * PHOSPHORUS BLOOD (02/24/2021 12:28 AM CDT) Phosphorus 3.9 2.8 - 5.1 mg/dL 02/24/2021 1:02 AM CDT [facility] Blood BLOOD SPECIMEN / Unknown Venipuncture / Unknown 02/24/2021 12:28 AM CDT 02/24/2021 12:37 AM CDT Fredy Felipe MD LAB - CHEMISTRY ORDE RABLES [address] [address], [facility] [phone] * MAGNESIUM BLOOD (02/24/2021 12:28 AM CDT) Magnesium 1.8 1.6 - 2.6 mg/dL 02/24/2021 1:02 AM CDT [facility] Blood BLOOD SPECIMEN / Unknown Venipuncture / Unknown 02/24/2021 12:28 AM CDT 02/24/2021 12:37 AM CDT Fredy Felipe MD LAB - CHEMISTRY JOSE ENRIQUE VELA Performing Organization Address [facility] Co de Phone Number [address] [address], [facility] [phone] * (ABNORMAL) CALCIUM IONIZED WHOLE BLOOD (02/24/2021 12:28 AM CDT) Calcium Ionized 1.16 mmol/L 02/24/2021 12:40 AM CDT [facility] pH 7.45 7.35 - 7.45 pH 02/24/2021 12:40 AM CDT [facility] Ionized Calcium pH Adjusted 1.18(L) 1.19 - 1.34 mmol/L 02/24/2021 12:40 AM CDT [facility] Blood BLOOD SPECIMEN / Unknown Venipuncture / Unknown 02/24/2021 12:28 AM CDT 02/24/2021 12:34 AM CDT Fredy Felipe MD LAB - CHEMISTRY JOSE ENRIQUE EVLA Performing Organization Address [facility] Co de Phone Number [address] [address], [facility] [phone] * XR CHEST 1VW PORTABLE (02/23/2021 5:05 AM CDT) Anatomical Region Laterality Modality Chest Radiographic Sera ging 02/23/2021 5:19 AM CDT Impressions 02/23/2021 10:53 AM CDT FINDINGS/IMPRESSION: An endotracheal tube terminates in mid thoracic trachea. A left subclavian approach central venous catheter terminates in the left brachiocephalic vein. A gastric tube courses to the stomach out of the [id number]. A right thoracostomy tube is unchanged in position. Small bilateral pleural effusions are suggested. Bibasilar airspace opacities may represent atelectasis and/or airspace disease. There is no pneumothorax. The cardiomediastinal silhouette is partially obscured. Dictated by Alverto Ames MD (resident medical officer). I, Dr. NENA CLEMENTE have personally reviewed [...] courses to the stomach out of the [id number]. A right thoracostomy tube is unchanged in position. Small bilateral pleural effusions are suggested. Bibasilar airspace opacities may represent atelectasis and/or airspace disease. There is no pneumothorax. The cardiomediastinal silhouette is partially obscured. Dictated by Alverto Ames MD (resident medical officer). I, Dr. NENA CLEMENTE have personally reviewed and interpreted this examination/study. This report was electronically signed by NENA CLEMENTE on 02/23/2021 10:53 AM . Fredy Felipe MD DIAGNOSTIC IMAGING O RDERABLES * PREPARE (CROSSMATCH) RBC UNIT(S), 2 Units (02/23/2021 1:17 AM CDT) Unit Description AS1 LR PRBC [facility] Unit ABO O [facility] Unit Rh POS [facility] Product Number R02 [facility] Unit Donor # [id number] [facility] Unit Status released [facility] Product Code [id number] [facility] Blood Type Barcode 5100 [facility] Expiration Date [facility] Unit Description AS1 LR PRBC [facility] Unit ABO O [facility] Unit Rh POS [facility] Product Number R02 [facility] Unit Donor # [id number] [facility] Unit Status released [facility] Product Code [id number] [facility] Blood Type Barcode 5100 [facility] Expiration Date [facility] Blood Bank BLOOD SPECIMEN / Unknown 02/19/2021 7:34 AM CDT Fredy Felipe MD LAB - BLOOD BANK ORD ERABLES [facility] [address] [place] [address], [facility] [phone] * (ABNORMAL) CBC W AUTO DIFFERENTIAL (02/23/2021 12:21 AM CDT) WBC 13.5(H) 3.5 - 10.5 10? 3 /uL 02/23/2021 1:02 AM [facility] RBC 4.32 4.30 - 5.70 10? 6 /uL 02/23/2021 1:02 AM [facility] Hemoglobin 12.0 12.0 - 17.6 g/dL 02/23/2021 1:02 AM [facility] Hematocrit 38.1 35.2 - 51.7 % 02/23/2021 1:02 AM [facility] MCV 88.2 80.7 - 98.3 fL 02/23/2021 1:02 AM [facility] MCH 27.8 26.7 - 34.0 pg 02/23/2021 1:02 AM [facility] MCHC 31.5 30.8 - 35.9 g/dL 02/23/2021 1:02 AM [facility] Platelet Count 403(H) 150 - 400 10? 3 /uL 02/23/2021 1:02 AM [facility] RDW-SD 45.1 36.0 - 50.0 fL 02/23/2021 1:02 AM [facility] RDW-CV 14.0 11.2 - 14.8 % 02/23/2021 1:02 AM [facility] MPV 9.2(L) 9.4 - 12.9 fL 02/23/2021 1:02 AM [facility] nRBC Absolute 0.00 0 10? 3 /uL 02/23/2021 1:02 AM [facility] nRBC Auto 0.0 0 /100 WBC 02/23/2021 1:02 AM [facility] Neutrophils % 74.4(H) 35.0 - 70.0 % 02/23/2021 1:02 AM [facility] Lymphocytes % 10.5(L) 20.0 - 43.0 % 02/23/2021 1:02 AM [facility] Monocytes % 9.6 5.0 - 13.0 % 02/23/2021 1:02 AM [facility] Eosinophils % 4.0 0.0 - 6.0 % 02/23/2021 1:02 AM [facility] Basophil % 0.2 0.0 - 2.0 % 02/23/2021 1:02 AM [facility] Neutrophils Absolute 10.0(H) 1.6 - 7.0 10? 3 /uL 02/23/2021 1:02 AM [facility] Lymphocyte Absolute 1.4 1.1 - 3.9 10? 3 /uL 02/23/2021 1:02 AM [facility] Monocytes Absolute 1.30(H) 0.26 - 1.07 10? 3 /uL 02/23/2021 1:02 AM [facility] Eosinophils Absolute 0.54(H) 0.00 - 0.47 10? 3 /uL 02/23/2021 1:02 AM [facility] Basophils Absolute 0.03 0.00 - 0.08 10? 3 /uL 02/23/2021 1:02 AM [facility] Immature Granulocytes % 1.3(H) 0.0 - 1.0 % 02/23/2021 1:02 AM [facility] Immature Granulocytes Absolute 0.18 02/23/2021 1:02 AM [facility] Blood BLOOD SPECIMEN / Unknown Venipuncture / Unknown 02/23/2021 12:21 AM CDT 02/23/2021 12:57 AM T Fredy Felipe MD LAB - HEMATOLOGY ORD ERABLES [facility] [address] [place] [address], [facility] [phone] * (ABNORMAL) BASIC METABOLIC PANEL (CALCIUM TOTAL) (02/23/2021 12:21 AM CDT) BUN 10 7 - 26 mg/dL 02/23/2021 1:22 AM [facility] Creatinine 0.84 0.71 - 1.16 mg/dL 02/23/2021 1:22 AM [facility] Sodium 139 136 - 145 mmol/L 02/23/2021 1:22 AM [facility] Potassium 4.2 3.5 - 4.5 mmol/L 02/23/2021 1:22 AM [facility] Chloride 103 98 - 107 mmol/L 02/23/2021 1:22 AM [facility] CO2 30(H) 22 - 29 mmol/L 02/23/2021 1:22 AM [facility] Glucose 145(H) 70 - 115 mg/dL 02/23/2021 1:22 AM [facility] Calcium 8.4 8.4 - 10.2 mg/dL 02/23/2021 1:22 AM [facility] Anion Gap 10 8 - 18 02/23/2021 1:22 AM [facility] BUN/Creatinine Ratio 12 7 - 23 02/23/2021 1:22 AM [facility] Osmolality Calculated 290 270 - 300 mOsm/kg 02/23/2021 1:22 AM [facility] eGFR by CKD-EPI >90 >=90 mL/min/1.7 3 m2 02/23/2021 1:22 AM [facility] Blood BLOOD SPECIMEN / Unknown Venipuncture / Unknown 02/23/2021 12:21 AM CDT 02/23/2021 12:57 AM CDT Fredy Felipe MD LAB - CHEMISTRY JOSE ENRIQUE V[facility] Organization Address City/State/ZIP Co de Phone Number [facility] [address] [place] [address], [facility] [phone] * (ABNORMAL) BLOOD GASES ART + COOX PANEL (02/23/2021 12:21 AM CDT) pH Arterial 7.43 7.35 - 7.45 pH 02/23/2021 1:02 AM [facility] pO2 Arterial 110(H) 80 - 100 mmHg 02/23/2021 1:02 AM [facility] pCO2 Arterial 44 35 - 45 mmHg 1:02 AM [facility] HCO3 Arterial 29 20 - 30 mmol/l 02/23/2021 1:02 AM [facility] BE Arterial 4.3(H) -2.0 - 2.0 mmol/L 02/23/2021 1:02 AM [facility] Oxyhemoglobin Arterial 97.1 % 02/23/2021 1:02 AM [facility] Dexoyhemoglobin (HHB) % 0.6 % 02/23/2021 1:02 AM [facility] Methemoglobin 0.8 0.0 - 2.0 % 02/23/2021 1:02 AM [facility] Carboxyhemoglobin 1.5 0.0 - 2.0 % 2020 1:02 AM [facility] O2 Content Arterial 17.5 Interpret within clinical context mg/dL 02/23/2021 1:02 AM [facility] Hemoglobin by COOX 12.7 12.0 - 17.6 g/dL 02/23/2021 1:02 AM [facility] O2 Saturation Arterial 99 90 - 100 % 02/23/2021 1:02 AM [facility] FI O2 Arterial 55.0 % 02/23/2021 1:02 AM [facility] Blood, arterial ARTERIAL BLOOD SPECIMEN / Unknown Arterial Puncture / Unknown 02/23/2021 12:21 AM CDT 02/23/2021 12:55 AM CDT Narrative [facility] - 02/23/2021 1:02 AM CDT Carboxyhemoglobin Normal Concentration: Non-smokers: 0-2%; Smokers: 0-9%; Toxic: >20% Fredy Felipe MD LAB - BLOOD GASES OR DERABLES Performing Organization Address [facility] Co de Phone Number [phone] [address] [address], [facility] [phone] * PT-INR [facility] (02/23/2021 12:21 AM CDT) PT 14.4 [...] - COAGULATION OR DERABLES Performing Organization Address [facility] Co de Phone Number [address] [address], [facility] [phone] * PHOSPHORUS BLOOD (02/23/2021 12:21 AM CDT) Phosphorus 3.9 2.8 - 5.1 mg/dL 02/23/2021 1:22 AM CDT [facility] Blood BLOOD SPECIMEN / Unknown Venipuncture / Unknown 02/23/2021 12:21 AM CDT 02/23/2021 12:57 AM CDT Fredy Felipe MD LAB - CHEMISTRY JOSE ENRIQUE VELA [facility] [address] [place] [address], [place] [phone] * MAGNESIUM BLOOD (02/23/2021 12:21 AM CDT) Pathologist [facility] Magnesium 2.1 1.6 - 2.6 mg/dL 02/23/2021 1:22 AM CDT [facility] Blood BLOOD SPECIMEN / Unknown Venipuncture / Unknown 02/23/2021 12:21 AM CDT 02/23/2021 12:57 AM CDT Fredy Felipe MD LAB - CHEMISTRY JOSE ENRIQUE VELA [address] [address], [facility] [phone] * (ABNORMAL) CALCIUM IONIZED WHOLE BLOOD (02/23/2021 12:21 AM CDT) [facility] Calcium Ionized 1.12 mmol/L 02/23/2021 1:05 AM CDT [facility] pH 7.44 7.35 - 7.45 pH 02/23/2021 1:05 AM T [facility] Ionized Calcium pH Adjusted 1.14(L) 1.19 - 1.34 mmol/L 02/23/2021 1:05 AM CDT [facility] Blood BLOOD SPECIMEN / Unknown Venipuncture / Unknown 02/23/2021 12:21 AM CDT 02/23/2021 12:55 AM CDT Fredy Felipe MD LAB - CHEMISTRY JOSE ENRIQUE VELA [address] [address], [place] [phone] * CREATININE URINE RANDOM (02/22/2021 5:45 AM CDT) Pathologist [facility] Creatinine Urine 212 Not Established mg/dL 02/22/2021 6:25 AM CDT [facility] Urine URINE SPECIMEN OBTAINED BY CLEAN CATCH PROCEDURE / Unknown Collection / Unknown 02/22/2021 5:45 AM CDT 02/22/2021 6:13 AM CDT Dino MORIN-C LAB - URINE CHEMI STRY ORDERABLES Performing Organization Address [facility]/ZIP Co de Phone Number [address] [address], [place] [phone] * UREA NITROGEN URINE RANDOM (02/22/2021 5:45 AM CDT) Urea Nitrogen Random Urine 1,198 Not Established mg/dL 02/22/2021 6:25 AM CDT [facility] Urine URINE SPECIMEN OBTAINED BY CLEAN CATCH PROCEDURE / Unknown Collection / Unknown 02/22/2021 5:45 AM CDT 02/22/2021 6:13 AM CDT Dino RUSSELLC LAB - URINE CHEMI STRY ORDERABLES Performing Organization Address [facility]/ZIP Co de Phone Number [address] [address], [place] [phone] * SODIUM URINE RANDOM (02/22/2021 5:45 AM CDT) Sodium Urine 56 Not Established mmol/L 02/22/2021 6:25 AM CDT [facility] Urine URINE SPECIMEN OBTAINED BY CLEAN CATCH PROCEDURE / Unknown Collection / Unknown 02/22/2021 5:45 AM CDT 02/22/2021 6:13 AM CDT Dino RUSSELLC LAB - URINE CHEMI STRY ORDERABLES Performing Organization Address [facility]/ZIP Co de Phone Number [address] [address], [place] [phone] * (ABNORMAL) URINALYSIS W/MICROSCOPIC NO CULTURE (02/22/2021 5:44 AM CDT) Color UA Janis(A) Straw, Yellow 02/22/2021 6:08 AM [facility] Clarity UA Slt Cloudy(A) Clear 02/22/2021 6:08 AM [facility] Specific Palmer UA 1.024 1.005 - 1.030 02/22/2021 6:08 AM [facility] pH UA 5.0 5.0 - 8.0 pH 02/22/2021 6:08 AM [facility] Protein UA 1+(A) Negative 02/22/2021 6:08 AM [facility] Glucose UA Negative Negative 02/22/2021 6:08 AM [facility] Ketone UA Negative Negative 02/22/2021 6:08 AM [facility] Bilirubin UA Negative Negative 02/22/2021 6:08 AM [facility] Blood UA 2+(A) Negative 02/22/2021 6:08 AM [facility] Nitrite UA Negative Negative 02/22/2021 6:08 AM [facility] Leukocyte Esterase Negative Negative 02/22/2021 6:08 AM [facility] Urobilinogen UA Negative Negative mg/dL 02/22/2021 6:08 AM [facility] RBC UA 51-100(A) None Seen, 0-2, 3-5 /HPF 02/22/2021 6:08 AM [facility] WBC UA 6-10(A) None Seen, 0-5 /HPF 02/22/2021 6:08 AM [facility] Bacteria UA 1+(A) None /HPF 02/22/2021 6:08 AM [facility] Squamous Epithelial Cells UA None Seen None Seen, 0-2, 3-5 /HPF 02/22/2021 6:08 AM [facility] Mucus UA 1+ /LPF 02/22/2021 6:08 AM [facility] Urine URINE SPECIMEN OBTAINED VIA [facility]HE[facility] / Unknown Collection / Unknown 02/22/2021 5:44 AM CDT 02/22/2021 5:49 AM [facility] - 02/22/2021 6:08 AM [facility] Dino Hudson PA-C LAB - URINALYSIS ORDERABLES [facility] [address] [place] [address], [facility] [phone] * XR CHEST 1VW PORTABLE (02/22/2021 4:54 [...] ART + COOX PANEL (02/22/2021 3:17 AM [facility]) pH Arterial 7.41 7.35 - 7.45 pH 02/22/2021 3:23 AM [facility] pO2 Arterial 94 80 - 100 mmHg 02/22/2021 3:23 AM [facility] pCO2 Arterial 46(H) 35 - 45 mmHg 3:23 AM [facility] HCO3 Arterial 29 20 - 30 mmol/l 02/22/2021 3:23 AM [facility] BE Arterial 3.8(H) -2.0 - 2.0 mmol/L 02/22/2021 3:23 AM [facility] Oxyhemoglobin Arterial 96.7 % 02/22/2021 3:23 AM [facility] Dexoyhemoglobin (HHB) % 0.8 % 02/22/2021 3:23 AM [facility] Methemoglobin <0.8 0.0 - 2.0 % 02/22/2021 3:23 AM [facility] Carboxyhemoglobin 2.2(H) 0.0 - 2.0 % 2020 3:23 AM [facility] O2 Content Arterial 19.2 Interpret within clinical context mg/dL 02/22/2021 3:23 AM [facility] Hemoglobin by COOX 14.1 12.0 - 17.6 g/dL 02/22/2021 3:23 AM [facility] O2 Saturation Arterial 99 90 - 100 % 02/22/2021 3:23 AM [facility] FI O2 Arterial 55.0 % 02/22/2021 3:23 AM [facility] Blood, arterial ARTERIAL BLOOD SPECIMEN / Unknown Arterial Puncture / Unknown 02/22/2021 3:17 AM CDT 02/22/2021 3:20 AM CDT [facility] - 02/22/2021 3:23 AM CDT Carboxyhemoglobin Normal Concentration: Non-smokers: 0-2%; Smokers: 0-9%; Toxic: >20% Dino Hudson PA-C LAB - BLOOD GASES ORDERABLES [facility] [address] [place] [address], [facility] [phone] * (ABNORMAL) CBC W AUTO DIFFERENTIAL (02/21/2021 11:12 PM CDT) WBC 14.5(H) 3.5 - 10.5 10? 3 /uL 02/21/2021 11:21 PM [facility] RBC 4.88 4.30 - 5.70 10? 6 /uL 02/21/2021 11:21 PM [facility] Hemoglobin 13.7 12.0 - 17.6 g/dL 02/21/2021 11:21 PM [facility] Hematocrit 41.8 35.2 - 51.7 % 02/21/2021 11:21 PM [facility] MCV 85.7 80.7 - 98.3 fL 02/21/2021 11:21 PM [facility] MCH 28.1 26.7 - 34.0 pg 02/21/2021 11:21 PM [facility] MCHC 32.8 30.8 - 35.9 g/dL 02/21/2021 11:21 PM [facility] Platelet Count 374 150 - 400 10? 3 /uL 02/21/2021 11:21 PM [facility] RDW-SD 42.4 36.0 - 50.0 fL 02/21/2021 11:21 PM [facility] RDW-CV 13.7 11.2 - 14.8 % 02/21/2021 11:21 PM [facility] MPV 9.1(L) 9.4 - 12.9 fL 02/21/2021 11:21 PM [facility] nRBC Absolute 0.00 0 10? 3 /uL 02/21/2021 11:21 PM [facility] nRBC Auto 0.0 0 /100 WBC 02/21/2021 11:21 PM [facility] Neutrophils % 82.8(H) 35.0 - 70.0 % 02/21/2021 11:21 PM [facility] Lymphocytes % 6.9(L) 20.0 - 43.0 % 02/21/2021 11:21 PM [facility] Monocytes % 7.6 5.0 - 13.0 % 02/21/2021 11:21 PM [facility] Eosinophils % 1.0 0.0 - 6.0 % 02/21/2021 11:21 PM [facility] Basophil % 0.3 0.0 - 2.0 % 02/21/2021 11:21 PM [facility] Neutrophils Absolute 12.0(H) 1.6 - 7.0 10? 3 /uL 02/21/2021 11:21 PM [facility] Lymphocyte Absolute 1.0(L) 1.1 - 3.9 10? 3 /uL 02/21/2021 11:21 PM [facility] Monocytes Absolute 1.10(H) 0.26 - 1.07 10? 3 /uL 02/21/2021 11:21 PM [facility] Eosinophils Absolute 0.14 0.00 - 0.47 10? 3 /uL 02/21/2021 11:21 PM [facility] Basophils Absolute 0.05 0.00 - 0.08 10? 3 /uL 02/21/2021 11:21 PM [facility] Immature Granulocytes % 1.4(H) 0.0 - 1.0 % 02/21/2021 11:21 PM [facility] Immature Granulocytes Absolute 0.21 02/21/2021 11:21 PM [facility] Blood BLOOD SPECIMEN / Unknown Venipuncture / Unknown 02/21/2021 11:12 PM CDT 02/21/2021 11:17 PM CDT Fredy Felipe MD LAB - HEMATOLOGY ORD TERESA Performing Organization Address City/[facility]/ZIP Co de Phone Number [facility] [address] [place] [address], [facility] [phone] * (ABNORMAL) BASIC METABOLIC PANEL (CALCIUM TOTAL) (02/21/2021 11:12 PM CDT) BUN 15 7 - 26 mg/dL 02/21/2021 11:42 PM [facility] Creatinine 1.13 0.71 - 1.16 mg/dL 02/21/2021 11:42 PM [facility] Sodium 141 136 - 145 mmol/L 02/21/2021 11:42 PM [facility] Potassium 4.3 3.5 - 4.5 mmol/L 02/21/2021 11:42 PM [facility] Chloride 105 98 - 107 mmol/L 02/21/2021 11:42 PM [facility] CO2 22 22 - 29 mmol/L 02/21/2021 11:42 PM [facility] Glucose 126(H) 70 - 115 mg/dL 02/21/2021 11:42 PM [facility] Calcium 8.5 8.4 - 10.2 mg/dL 02/21/2021 11:42 PM [facility] Anion Gap 18 8 - 18 02/21/2021 11:42 PM [facility] BUN/Creatinine Ratio 13 7 - 23 02/21/2021 11:42 PM [facility] Osmolality Calculated 294 270 - 300 mOsm/kg 02/21/2021 11:42 PM [facility] eGFR by CKD-EPI 84(L) >=90 mL/min/1.7 3 m2 02/21/2021 11:42 PM [facility] Blood BLOOD SPECIMEN / Unknown Venipuncture / Unknown 02/21/2021 11:12 PM CDT 02/21/2021 11:16 PM CDT Fredy Felipe MD LAB - CHEMISTRY JOSE ENRIQUE VELA [facility] [address] [place] [address], [facility] [phone] * (ABNORMAL) BLOOD GASES ART + COOX PANEL (02/21/2021 11:12 PM T) pH Arterial 7.60(H) 7.35 - 7.45 pH 02/21/2021 11:20 PM [facility] pO2 Arterial 185(H) 80 - 100 mmHg 02/21/2021 11:20 PM [facility] pCO2 Arterial 26(L) 35 - 45 mmHg 11:20 PM [facility] HCO3 Arterial 26 20 - 30 mmol/l 02/21/2021 11:20 PM [facility] BE Arterial 5.1(H) -2.0 - 2.0 mmol/L 02/21/2021 11:20 PM [facility] Oxyhemoglobin Arterial 97.5 % 02/21/2021 11:20 PM [facility] Dexoyhemoglobin (HHB) % 0.3 % 02/21/2021 11:20 PM [facility] Methemoglobin 0.9 0.0 - 2.0 % 02/21/2021 11:20 PM [facility] Carboxyhemoglobin 1.3 0.0 - 2.0 % 2020 11:20 PM [facility] O2 Content Arterial 20.2 Interpret within clinical context mg/dL 02/21/2021 11:20 PM [facility] Hemoglobin by COOX 14.5 12.0 - 17.6 g/dL 02/21/2021 11:20 PM [facility] O2 Saturation Arterial 100 90 - 100 % 02/21/2021 11:20 PM [facility] FI O2 Arterial 60.0 % 02/21/2021 11:20 PM [facility] Blood, arterial ARTERIAL BLOOD SPECIMEN / Unknown Arterial Puncture / Unknown 02/21/2021 11:12 PM CDT 02/21/2021 11:18 PM [facility] - 02/21/2021 11:20 PM CDT Carboxyhemoglobin Normal Concentration: Non-smokers: 0-2%; Smokers: 0-9%; Toxic: >20% Fredy Felipe MD LAB - BLOOD GASES OR DERABLES Performing Organization Address City/[facility] Co de Phone Number [facility] [address] [place] [address], [place] [phone] * (ABNORMAL) PT-INR [facility] (02/21/2021 11:12 PM CDT) PT 15.2(H) 12.1 - 14.8 Seconds 02/21/2021 11:31 PM CDT [facility] INR 1.2 See Comment 02/21/2021 11:31 [...] - COAGULATION OR DERABLES Performing Organization Address [facility] Co de Phone Number [address] [address], [place] [phone] * PHOSPHORUS BLOOD (02/21/2021 11:12 PM CDT) Pathologist [facility] Phosphorus 3.5 2.8 - 5.1 mg/dL 02/21/2021 11:42 PM CDT [facility] Blood BLOOD SPECIMEN / Unknown Venipuncture / Unknown 02/21/2021 11:12 PM CDT 02/21/2021 11:16 PM CDT Fredy Felipe MD LAB - CHEMISTRY ORDE RABLES Performing Organization Address City/[facility]/ZIP Co de Phone Number [address] [address], [place] [phone] * MAGNESIUM BLOOD (02/21/2021 11:12 PM CDT) Magnesium 1.8 1.6 - 2.6 mg/dL 02/21/2021 11:42 PM CDT [facility] Blood BLOOD SPECIMEN / Unknown Venipuncture / Unknown 02/21/2021 11:12 PM CDT 02/21/2021 11:16 PM CDT Fredy Felipe MD LAB - CHEMISTRY JOSE ENRIQUE VELA [facility] [address] [place] [address], [facility] [phone] * (ABNORMAL) CALCIUM IONIZED WHOLE BLOOD (02/21/2021 11:12 PM CDT) Pathologist [facility] Calcium Ionized 1.10 mmol/L 02/21/2021 11:21 PM CDT [facility] pH 7.62(H) 7.35 - 7.45 pH 02/21/2021 11:21 PM CDT [facility] Ionized Calcium pH Adjusted 1.20 1.19 - 1.34 mmol/L 02/21/2021 11:21 PM CDT [facility] Blood BLOOD SPECIMEN / Unknown Venipuncture / Unknown 02/21/2021 11:12 PM CDT 02/21/2021 11:18 PM CDT Fredy Felipe MD LAB - CHEMISTRY JOSE ENRIQUE VELA [facility] [address] [place] [address], [facility] [phone] * (ABNORMAL) TRIGLYCERIDES BLOOD (02/21/2021 11:12 PM CDT) Triglycerides 236(H) <150 mg/dL 02/21/2021 11:42 PM CDT [facility] Comment: ATP [...] Organization Address City/State/ZIP Co de Phone Number [facility] [address] [place] [address], [facility] [phone] * XR FOREARM RIGHT 2VW (02/21/2021 9:01 AM CDT) Anatomical Region Laterality Modality Upper Extremity Radiographic Sera ging 02/21/2021 9:07 AM CDT Impressions 02/21/2021 10:41 AM CDT IMPRESSION: No acute radial or ulnar fracture identified. Dictated by Rico Sawant D.O. (Outpatient Physical Therapist) Dr. CHOCO Yao MD have personally reviewed [...] fracture identified. Dictated by Rico Sawant D.O. (Outpatient Physical Therapist) Dr. CHOCO Yao MD have personally reviewed [...] are normal. Dictated by Rico Sawant DO (resident medical officer). I, Dr. AFRICA HENRIQUEZ M.D. have personally [...] are normal. Dictated by Rico Sawant DO (resident medical officer). I, Dr. AFRICA HENRIQUEZ M.D. have personally reviewed and interpreted this examination/study. This report was electronically signed by AFRICA HENRIQUEZ M.D. on 02/21/2021 11:05 AM . Fredy Felipe MD DIAGNOSTIC IMAGING O RDERABLES * (ABNORMAL) CBC W AUTO DIFFERENTIAL (02/20/2021 11:26 PM T) WBC 14.6(H) 3.5 - 10.5 10? 3 /uL 02/20/2021 11:36 PM [facility] RBC 5.46 4.30 - 5.70 10? 6 /uL 02/20/2021 11:36 PM [facility] Hemoglobin 15.0 12.0 - 17.6 g/dL 02/20/2021 11:36 PM [facility] Hematocrit 46.7 35.2 - 51.7 % 02/20/2021 11:36 PM [facility] MCV 85.5 80.7 - 98.3 fL 02/20/2021 11:36 PM [facility] MCH 27.5 26.7 - 34.0 pg 02/20/2021 11:36 PM [facility] MCHC 32.1 30.8 - 35.9 g/dL 02/20/2021 11:36 PM [facility] Platelet Count 392 150 - 400 10? 3 /uL 02/20/2021 11:36 PM [facility] RDW-SD 42.8 36.0 - 50.0 fL 02/20/2021 11:36 PM [facility] RDW-CV 13.9 11.2 - 14.8 % 02/20/2021 11:36 PM [facility] MPV 9.0(L) 9.4 - 12.9 fL 02/20/2021 11:36 PM [facility] nRBC Absolute 0.00 0 10? 3 /uL 02/20/2021 11:36 PM [facility] nRBC Auto 0.0 0 /100 WBC 02/20/2021 11:36 PM [facility] Neutrophils % 82.1(H) 35.0 - 70.0 % 02/20/2021 11:36 PM [facility] Lymphocytes % 5.4(L) 20.0 - 43.0 % 02/20/2021 11:36 PM [facility] Monocytes % 9.4 5.0 - 13.0 % 02/20/2021 11:36 PM [facility] Eosinophils % 2.0 0.0 - 6.0 % 02/20/2021 11:36 PM [facility] Basophil % 0.4 0.0 - 2.0 % 02/20/2021 11:36 PM [facility] Neutrophils Absolute 12.0(H) 1.6 - 7.0 10? 3 /uL 02/20/2021 11:36 PM [facility] Lymphocyte Absolute 0.8(L) 1.1 - 3.9 10? 3 /uL 02/20/2021 11:36 PM [facility] Monocytes Absolute 1.37(H) 0.26 - 1.07 10? 3 /uL 02/20/2021 11:36 PM [facility] Eosinophils Absolute 0.29 0.00 - 0.47 10? 3 /uL 02/20/2021 11:36 PM [facility] Basophils Absolute 0.06 0.00 - 0.08 10? 3 /uL 02/20/2021 11:36 PM [facility] Immature Granulocytes % 0.7 0.0 - 1.0 % 02/20/2021 11:36 PM [facility] Immature Granulocytes Absolute 0.10 02/20/2021 11:36 PM [facility] Blood BLOOD SPECIMEN / Unknown Venipuncture / Unknown 02/20/2021 11:26 PM CDT 02/20/2021 11:31 PM CDT Fredy Felipe MD LAB - HEMATOLOGY ORD TERESA [facility] [address] [place] [address], [facility] [phone] * BASIC METABOLIC PANEL (CALCIUM TOTAL) (02/20/2021 11:26 PM CDT) BUN 12 7 - 26 mg/dL 02/20/2021 11:54 PM [facility] Creatinine 0.75 0.71 - 1.16 mg/dL 02/20/2021 11:54 PM [facility] Sodium 142 136 - 145 mmol/L 02/20/2021 11:54 PM [facility] Potassium 4.0 3.5 - 4.5 mmol/L 02/20/2021 11:54 PM [facility] Chloride 105 98 - 107 mmol/L 02/20/2021 11:54 PM [facility] CO2 26 22 - 29 mmol/L 02/20/2021 11:54 PM [facility] Glucose 106 70 - 115 mg/dL 02/20/2021 11:54 PM [facility] Calcium 8.8 8.4 - 10.2 mg/dL 02/20/2021 11:54 PM [facility] Anion Gap 15 8 - 18 02/20/2021 11:54 PM [facility] BUN/Creatinine Ratio 16 7 - 23 02/20/2021 11:54 PM [facility] Osmolality Calculated 294 270 - 300 mOsm/kg 02/20/2021 11:54 PM [facility] eGFR by CKD-EPI >90 >=90 mL/min/1.7 3 m2 02/20/2021 11:54 PM [facility] Blood BLOOD SPECIMEN / Unknown Venipuncture / Unknown 02/20/2021 11:26 PM CDT 02/20/2021 11:30 PM CDT Fredy Felipe MD LAB - CHEMISTRY JOSE ENRIQUE VELA [facility] [address] [place] [address] [phone] * (ABNORMAL) BLOOD GASES ART + COOX PANEL (02/20/2021 11:26 PM [facility]) pH Arterial 7.41 7.35 - 7.45 pH 02/20/2021 11:32 PM [facility] pO2 Arterial 131(H) 80 - 100 mmHg 02/20/2021 11:32 PM [facility] pCO2 Arterial 40 35 - 45 mmHg 11:32 PM [facility] HCO3 Arterial 25 20 - 30 mmol/l 02/20/2021 11:32 PM [facility] BE Arterial 0.7 -2.0 - 2.0 mmol/L 02/20/2021 11:32 PM [facility] Oxyhemoglobin Arterial 96.8 % 02/20/2021 11:32 PM [facility] Dexoyhemoglobin (HHB) % 0.0 % 02/20/2021 11:32 PM [facility] Methemoglobin <0.8 0.0 - 2.0 % 02/20/2021 11:32 PM [facility] Carboxyhemoglobin 2.7(H) 0.0 - 2.0 % 2020 11:32 PM [facility] O2 Content Arterial 21.3 Interpret within clinical context mg/dL 02/20/2021 11:32 PM [facility] Hemoglobin by COOX 15.5 12.0 - 17.6 g/dL 02/20/2021 11:32 PM [facility] O2 Saturation Arterial 100 90 - 100 % 02/20/2021 11:32 PM [facility] FI O2 Arterial 100.0 % 02/20/2021 11:32 PM [facility] Blood, arterial ARTERIAL BLOOD SPECIMEN / Unknown Arterial Puncture / Unknown 02/20/2021 11:26 PM CDT 02/20/2021 11:30 PM [facility] - 02/20/2021 11:32 PM [facility] Carboxyhemoglobin Normal Concentration: Non-smokers: 0-2%; Smokers: 0-9%; Toxic: >20% Fredy Felipe MD LAB - BLOOD GASES OR DERABLES Performing Organization Address City/[facility]/ZIP Co de Phone Number [address] [address], [place] [phone] * PT-INR [facility] (02/20/2021 11:26 PM CDT) PT 14.8 12.1 - 14.8 Seconds 02/20/2021 11:45 PM CDT [facility] INR 1.2 See Comment 02/20/2021 11:45 [...] - COAGULATION OR DERABLES Performing Organization Address City/[facility]/ZIP Co de Phone Number [address] [address], [place] [phone] * PHOSPHORUS BLOOD (02/20/2021 11:26 PM CDT) Pathologist [facility] Phosphorus 4.6 2.8 - 5.1 mg/dL 02/20/2021 11:54 PM CDT [facility] Blood BLOOD SPECIMEN / Unknown Venipuncture / Unknown 02/20/2021 11:26 PM CDT 02/20/2021 11:30 PM CDT Fredy Felipe MD LAB - CHEMISTRY JOSE ENRIQUE VELA [address] [address], [place] [phone] * MAGNESIUM BLOOD (02/20/2021 11:26 PM CDT) Magnesium 2.0 1.6 - 2.6 mg/dL 02/20/2021 11:54 PM CDT [facility] Blood BLOOD SPECIMEN / Unknown Venipuncture / Unknown 02/20/2021 11:26 PM CDT 02/20/2021 11:30 PM CDT Fredy Felipe MD LAB - CHEMISTRY JOSE ENRIQUE VELA Performing Organization Address [facility]/ZIP Co de Phone Number [address] [address], [facility] [phone] * (ABNORMAL) CALCIUM IONIZED WHOLE BLOOD (02/20/2021 11:26 PM CDT) [facility] Calcium Ionized 1.14 mmol/L 02/20/2021 11:32 PM CDT [facility] pH 7.41 7.35 - 7.45 pH 02/20/2021 11:32 PM CDT [facility] Ionized Calcium pH Adjusted 1.14(L) 1.19 - 1.34 mmol/L 02/20/2021 11:32 PM CDT [facility] Blood BLOOD SPECIMEN / Unknown Venipuncture / Unknown 02/20/2021 11:26 PM CDT 02/20/2021 11:30 PM CDT Fredy Felipe MD LAB - CHEMISTRY JOSE ENRIQUE VELA Performing Organization Address [facility]/ZIP Co de Phone Number [address] [id number], [facility] [phone] * XR CHEST 1VW PORTABLE (02/20/2021 1:56 PM CDT) Anatomical Region Laterality Modality Chest Radiographic Sera ging 02/20/2021 3:53 PM CDT Impressions 02/20/2021 4:27 PM CDT FINDINGS/IMPRESSION: Lines and tubes: *Endotracheal tube terminates in mid thoracic trachea. *There is an NG/OG coursing below the diaphragm, terminus outside the [id number]. *There is a left subclavian approach central [...] is stable. Dictated by Rico Sawant DO (resident medical officer). Dr. AFRICA Yao M.D. have personally reviewed [...] coursing below the diaphragm, terminus outside the [id number]-[id number]. *There is a left subclavian approach central [...] is stable. Dictated by Rico Sawant DO (resident medical officer). Dr. AFRICA Yao M.D. have personally reviewed [...] below the diaphragm, the segments of the [id number]. *There is a left subclavian approach central [...] is stable. Dictated by Phan Brothers MD (resident medical officer). I, Dr. SUNITA BAILEY have personally reviewed [...] below the diaphragm, the segments of the [id number]. *There is a left subclavian approach central [...] is stable. Dictated by Phan Brothers MD (resident medical officer). I, Dr. SUNITA BAILEY have personally reviewed and interpreted this examination/study. This report was electronically signed by SUNITA BAILEY on 13:06 PM . Fredy Felipe MD DIAGNOSTIC IMAGING O RDERABLES * BLOOD GASES ART + COOX PANEL (02/20/2021 3:07 AM [facility] [place]) pH Arterial 7.41 7.35 - 7.45 pH 02/20/2021 3:12 AM [facility] pO2 Arterial 88 80 - 100 mmHg 02/20/2021 3:12 AM [facility] pCO2 Arterial 41 35 - 45 mmHg 3:12 AM [facility] HCO3 Arterial 26 20 - 30 mmol/l 02/20/2021 3:12 AM [facility] BE Arterial 1.2 -2.0 - 2.0 mmol/L 02/20/2021 3:12 AM [facility] Oxyhemoglobin Arterial 96.0 % 02/20/2021 3:12 AM [facility] Dexoyhemoglobin (HHB) % 1.4 % 02/20/2021 3:12 AM [facility] Methemoglobin 0.9 0.0 - 2.0 % 02/20/2021 3:12 AM [facility] Carboxyhemoglobin 1.7 0.0 - 2.0 % 2020 3:12 AM [facility] O2 Content Arterial 18.7 Interpret within clinical context mg/dL 02/20/2021 3:12 AM [facility] Hemoglobin by COOX 13.8 12.0 - 17.6 g/dL 02/20/2021 3:12 AM [facility] O2 Saturation Arterial 99 90 - 100 % 02/20/2021 3:12 AM [facility] FI O2 Arterial 60.0 % 02/20/2021 3:12 AM [facility] Blood, arterial ARTERIAL BLOOD SPECIMEN / Unknown Arterial Puncture / Unknown 02/20/2021 3:07 AM CDT 02/20/2021 3:10 AM [facility] - 02/20/2021 3:12 AM CDT Carboxyhemoglobin Normal Concentration: Non-smokers: 0-2%; Smokers: 0-9%; Toxic: >20% Delilah Stubbs [employer] ELECTRONIC TEST TECHNICIAN LAB - BLOOD GASES ORDERABLES Performing Organization Address City/State/[facility] Co de Phone Number [facility] [address] [place] [phone] [phone] * (ABNORMAL) CBC W AUTO DIFFERENTIAL (02/19/2021 11:36 PM CDT) WBC 13.2(H) 3.5 - 10.5 10? 3 /uL 02/19/2021 11:45 PM [facility] RBC 4.92 4.30 - 5.70 10? 6 /uL 02/19/2021 11:45 PM [facility] Hemoglobin 13.8 12.0 - 17.6 g/dL 02/19/2021 11:45 PM [facility] Hematocrit 42.3 35.2 - 51.7 % 02/19/2021 11:45 PM [facility] MCV 86.0 80.7 - 98.3 fL 02/19/2021 11:45 PM [facility] MCH 28.0 26.7 - 34.0 pg 02/19/2021 11:45 PM [facility] MCHC 32.6 30.8 - 35.9 g/dL 02/19/2021 11:45 PM [facility] Platelet Count 371 150 - 400 10? 3 /uL 02/19/2021 11:45 PM [facility] RDW-SD 43.7 36.0 - 50.0 fL 02/19/2021 11:45 PM [facility] RDW-CV 13.8 11.2 - 14.8 % 02/19/2021 11:45 PM [facility] MPV 8.8(L) 9.4 - 12.9 fL 02/19/2021 11:45 PM [facility] nRBC Absolute 0.00 0 10? 3 /uL 02/19/2021 11:45 PM [facility] nRBC Auto 0.0 0 /100 WBC 02/19/2021 11:45 PM [facility] Neutrophils % 78.5(H) 35.0 - 70.0 % 02/19/2021 11:45 PM [facility] Lymphocytes % 8.3(L) 20.0 - 43.0 % 02/19/2021 11:45 PM [facility] Monocytes % 10.4 5.0 - 13.0 % 02/19/2021 11:45 PM [facility] Eosinophils % 1.6 0.0 - 6.0 % 02/19/2021 11:45 PM [facility] Basophil % 0.4 0.0 - 2.0 % 02/19/2021 11:45 PM [facility] Neutrophils Absolute 10.4(H) 1.6 - 7.0 10? 3 /uL 02/19/2021 11:45 PM [facility] Lymphocyte Absolute 1.1 1.1 - 3.9 10? 3 /uL 02/19/2021 11:45 PM [facility] Monocytes Absolute 1.37(H) 0.26 - 1.07 10? 3 /uL 02/19/2021 11:45 PM [facility] Eosinophils Absolute 0.21 0.00 - 0.47 10? 3 /uL 02/19/2021 11:45 PM [facility] Basophils Absolute 0.05 0.00 - 0.08 10? 3 /uL 02/19/2021 11:45 PM [facility] Immature Granulocytes % 0.8 0.0 - 1.0 % 02/19/2021 11:45 PM [facility] Immature Granulocytes Absolute 0.11 02/19/2021 11:45 PM [facility] Blood BLOOD SPECIMEN / Unknown Venipuncture / Unknown 02/19/2021 11:36 PM CDT 02/19/2021 11:41 PM CDT Fredy Felipe MD LAB - HEMATOLOGY ORD ERABLES [facility] [address] [place] [address], [facility] [phone] * BASIC METABOLIC PANEL (CALCIUM TOTAL) (02/19/2021 11:36 PM CDT) BUN 10 7 - 26 mg/dL 02/20/2021 12:08 AM [facility] Creatinine 0.72 0.71 - 1.16 mg/dL 02/20/2021 12:08 AM [facility] Sodium 140 136 - 145 mmol/L 02/20/2021 12:08 AM [facility] Potassium 4.3 3.5 - 4.5 mmol/L 02/20/2021 12:08 AM [facility] Chloride 105 98 - 107 mmol/L 02/20/2021 12:08 AM [facility] CO2 25 22 - 29 mmol/L 02/20/2021 12:08 AM [facility] Glucose 92 70 - 115 mg/dL 02/20/2021 12:08 AM [facility] Calcium 8.9 8.4 - 10.2 mg/dL 02/20/2021 12:08 AM [facility] Anion Gap 14 8 - 18 02/20/2021 12:08 AM [facility] BUN/Creatinine Ratio 14 7 - 23 02/20/2021 12:08 AM [facility] Osmolality Calculated 289 270 - 300 mOsm/kg 02/20/2021 12:08 AM [facility] eGFR by CKD-EPI >90 >=90 mL/min/1.7 3 m2 02/20/2021 12:08 AM [facility] Blood BLOOD SPECIMEN / Unknown Venipuncture / Unknown 02/19/2021 11:36 PM CDT 02/19/2021 11:41 PM CDT Fredy Felipe MD LAB - CHEMISTRY JOSE ENRIQUE VELA [facility] [address] [place] [address], [facility] [phone] * BLOOD GASES ART + COOX PANEL (02/19/2021 11:36 PM CDT) pH Arterial 7.42 7.35 - 7.45 pH 02/19/2021 11:42 PM T [facility] pO2 Arterial 93 80 - 100 mmHg 02/19/2021 11:42 PM [facility] pCO2 Arterial 41 35 - 45 mmHg 11:42 PM [facility] HCO3 Arterial 27 20 - 30 mmol/l 02/19/2021 11:42 PM [facility] BE Arterial 1.9 -2.0 - 2.0 mmol/L 02/19/2021 11:42 PM [facility] Oxyhemoglobin Arterial 96.2 % 02/19/2021 11:42 PM [facility] Dexoyhemoglobin (HHB) % 1.5 % 02/19/2021 11:42 PM [facility] Methemoglobin 1.0 0.0 - 2.0 % 02/19/2021 11:42 PM [facility] Carboxyhemoglobin 1.4 0.0 - 2.0 % 2020 11:42 PM [facility] O2 Content Arterial 19.5 Interpret within clinical context mg/dL 02/19/2021 11:42 PM [facility] Hemoglobin by COOX 14.4 12.0 - 17.6 g/dL 02/19/2021 11:42 PM [facility] O2 Saturation Arterial 99 90 - 100 % 02/19/2021 11:42 PM [facility] FI O2 Arterial 50.0 % 02/19/2021 11:42 PM [facility] Blood, arterial ARTERIAL BLOOD SPECIMEN / Unknown Arterial Puncture / Unknown 02/19/2021 11:36 PM CDT 02/19/2021 11:40 PM CDT Narrative [facility] - 02/19/2021 11:42 PM CDT Carboxyhemoglobin Normal Concentration: Non-smokers: 0-2%; Smokers: 0-9%; Toxic: >20% Fredy Felipe MD LAB - BLOOD GASES OR DERABLES Performing Organization Address [facility] Co de Phone Number [facility] [address] [place] [address], [facility] [phone] * PT-INR [facility] (02/19/2021 11:36 PM CDT) PT 14.1 [...] - COAGULATION OR DERABLES Performing Organization Address [facility] Co de Phone Number [facility] [address] [place] [phone], [facility] [phone] * PHOSPHORUS BLOOD (02/19/2021 11:36 PM CDT) Phosphorus 3.8 2.8 - 5.1 mg/dL 02/20/2021 12:08 AM CDT [facility] Blood BLOOD SPECIMEN / Unknown Venipuncture / Unknown 02/19/2021 11:36 PM CDT 02/19/2021 11:41 PM CDT Fredy Felipe MD LAB - CHEMISTRY JOSE ENRIQUE VELA [address] [address], [place] [phone] * MAGNESIUM BLOOD (02/19/2021 11:36 PM CDT) Magnesium 1.9 1.6 - 2.6 mg/dL 02/20/2021 12:08 AM CDT [facility] Blood BLOOD SPECIMEN / Unknown Venipuncture / Unknown 02/19/2021 11:36 PM CDT 02/19/2021 11:41 PM CDT Fredy Felipe MD LAB - CHEMISTRY JOSE ENRIQUE VELA Performing Organization Address City/[facility]/ZIP Co de Phone Number [address] [address], [place] [phone] * CALCIUM IONIZED WHOLE BLOOD (02/19/2021 11:36 [...] MD LAB - CHEMISTRY JOSE ENRIQUE VELA [address] [address], [place] [phone] * XR CHEST 1VW PORTABLE (02/19/2021 5:10 [...] is normal. Dictated by Rico Sawant DO (resident medical officer). I, Dr. NAOMY LAZO MD, [facility] have [...] is normal. Dictated by Rico Sawant DO (resident medical officer). IDr. NAOMY MD, [facility] have personally reviewedand interpreted this examination/study. This report was electronically signed by NAOMY LAZO MD, [facility] on 02/20/2021 2:18 PM . Fredy [...] Dr. Carrion Dictated by Bety Rose MD (resident medical officer). This report was approved ??by Bety Rose [...] Dr. Carrion Dictated by Bety Rose MD (resident medical officer). This report was approved by Bety Rose on 02/20/2021 11:19 AM . I, Dr. JASWINDER CARRION have personally reviewed and interpreted this examination/study. This report was electronically signed by JASWINDER CARRION on02/20/2021 11:38 AM . Fredy Felipe MD MR ORDERABLES * TYPE + SCREEN PANEL (02/19/2021 7:27 AM CDT) Antibody Screen NEG 8:50 AM CDT [facility] ABO Rh O POS 02/19/2021 8:50 AM CDT [facility] Blood Bank BLOOD SPECIMEN / Unknown Venipuncture / Unknown 02/19/2021 7:27 AM CDT 02/19/2021 7:34 AM CDT Fredy Felipe MD LAB - BLOOD BANK ORD ERABLES [facility] [address] [place] [address], [facility] [phone] * XR CHEST 1VW PORTABLE (02/19/2021 5:26 [...] is normal. Dictated by Rico Sawant DO (resident medical officer). I, Dr. OSWALDO CLEMONS have personally reviewed [...] is normal. Dictated by Rico Sawant DO (resident medical officer). I, Dr. OSWALDO CLEMONS have personally reviewed and interpreted this examination/study. This report was electronically signed by OSWALDO CLEMONS on 02/19/2021 3:43PM . Fredy Felipe MD DIAGNOSTIC IMAGING O RDERABLES * (ABNORMAL) CBC W AUTO DIFFERENTIAL (02/18/2021 11:03 PM CDT) WBC 11.9(H) 3.5 - 10.5 10? 3 /uL 02/18/2021 11:19 PM [facility] RBC 4.74 4.30 - 5.70 10? 6 /uL 02/18/2021 11:19 [facility] Hemoglobin 13.1 12.0 - 17.6 g/dL 02/18/2021 11:19 PM [facility] Hematocrit 40.4 35.2 - 51.7 % 02/18/2021 11:19 PM [facility] MCV 85.2 80.7 - 98.3 fL 02/18/2021 11:19 PM [facility] MCH 27.6 26.7 - 34.0 pg 02/18/2021 11:19 PM [facility] MCHC 32.4 30.8 - 35.9 g/dL 02/18/2021 11:19 PM [facility] Platelet Count 325 150 - 400 10? 3 /uL 02/18/2021 11:19 PM [facility] RDW-SD 43.3 36.0 - 50.0 fL 02/18/2021 11:19 PM [facility] RDW-CV 14.0 11.2 - 14.8 % 02/18/2021 11:19 [facility] MPV 9.2(L) 9.4 - 12.9 fL 02/18/2021 11:19 PM [facility] nRBC Absolute 0.00 0 10? 3 /uL 02/18/2021 11:19 PM [facility] nRBC Auto 0.0 0 /100 WBC 02/18/2021 11:19 PM [facility] Neutrophils % 79.2(H) 35.0 - 70.0 % 02/18/2021 11:19 PM [facility] Lymphocytes % 10.3(L) 20.0 - 43.0 % 02/18/2021 11:19 [facility] Monocytes % 9.5 5.0 - 13.0 % 02/18/2021 11:19 PM [facility] Eosinophils % 0.3 0.0 - 6.0 % 02/18/2021 11:19 PM [facility] Basophil % 0.2 0.0 - 2.0 % 02/18/2021 11:19 PM [facility] Neutrophils Absolute 9.4(H) 1.6 - 7.0 10? 3 /uL 02/18/2021 11:19 PM [facility] Lymphocyte Absolute 1.2 1.1 - 3.9 10? 3 /uL 02/18/2021 11:19 PM [facility] Monocytes Absolute 1.13(H) 0.26 - 1.07 10? 3 /uL 02/18/2021 11:19 PM [facility] Eosinophils Absolute 0.04 0.00 - 0.47 10? 3 /uL 02/18/2021 11:19 PM [facility] Basophils Absolute 0.02 0.00 - 0.08 10? 3 /uL 02/18/2021 11:19 PM [facility] Immature Granulocytes % 0.5 0.0 - 1.0 % 02/18/2021 11:19 PM [facility] Immature Granulocytes Absolute 0.06 02/18/2021 11:19 PM [facility] Blood BLOOD SPECIMEN / Unknown Venipuncture / Unknown 02/18/2021 11:03 PM CDT 02/18/2021 11:08 PM CDT Fredy Felipe MD LAB - HEMATOLOGY ORD ERABLES Performing Organization Address City/State/[facility] Co de Phone Number [facility] [address] [place] [phone], [facility] [phone] * (ABNORMAL) BASIC METABOLIC PANEL (CALCIUM TOTAL) (02/18/2021 11:03 PM CDT) BUN 9 7 - 26 mg/dL 02/18/2021 11:32 PM [facility] Creatinine 0.75 0.71 - 1.16 mg/dL 02/18/2021 11:32 PM [facility] Sodium 142 136 - 145 mmol/L 02/18/2021 11:32 PM [facility] Potassium 3.9 3.5 - 4.5 mmol/L 02/18/2021 11:32 PM [facility] Chloride 108(H) 98 - 107 mmol/L 02/18/2021 11:32 PM [facility] CO2 25 22 - 29 mmol/L 02/18/2021 11:32 PM [facility] Glucose 92 70 - 115 mg/dL 02/18/2021 11:32 PM [facility] Calcium 8.4 8.4 - 10.2 mg/dL 02/18/2021 11:32 PM [facility] Anion Gap 13 8 - 18 02/18/2021 11:32 PM [facility] BUN/Creatinine Ratio 12 7 - 23 02/18/2021 11:32 PM [facility] Osmolality Calculated 292 270 - 300 mOsm/kg 02/18/2021 11:32 PM [facility] eGFR by CKD-EPI >90 >=90 mL/min/1.7 3 m2 02/18/2021 11:32 PM [facility] Blood BLOOD SPECIMEN / Unknown Venipuncture / Unknown 02/18/2021 11:03 PM CDT 02/18/2021 11:08 PM [facility] Fredy Felipe MD LAB - CHEMISTRY JOSE ENRIQUE VELA [facility] Organization Address City/State/ZIP Co de Phone Number [facility] [address] [place] [phone], [facility] [phone] * (ABNORMAL) BLOOD GASES ART + COOX PANEL (02/18/2021 11:03 PM T) pH Arterial 7.46(H) 7.35 - 7.45 pH 02/18/2021 11:11 PM [facility] pO2 Arterial 145(H) 80 - 100 mmHg 02/18/2021 11:11 PM [facility] pCO2 Arterial 37 35 - 45 mmHg 11:11 PM [facility] HCO3 Arterial 26 20 - 30 mmol/l 02/18/2021 11:11 PM [facility] BE Arterial 2.5(H) -2.0 - 2.0 mmol/L 02/18/2021 11:11 PM [facility] Oxyhemoglobin Arterial 97.5 % 02/18/2021 11:11 PM [facility] Dexoyhemoglobin (HHB) % 0.1 % 02/18/2021 11:11 PM [facility] Methemoglobin <0.8 0.0 - 2.0 % 02/18/2021 11:11 PM [facility] Carboxyhemoglobin 1.7 0.0 - 2.0 % 2020 11:11 PM [facility] O2 Content Arterial 18.8 Interpret within clinical context mg/dL 02/18/2021 11:11 PM [facility] Hemoglobin by COOX 13.5 12.0 - 17.6 g/dL 02/18/2021 11:11 PM [facility] O2 Saturation Arterial 100 90 - 100 % 02/18/2021 11:11 PM [facility] FI O2 Arterial 40.0 % 02/18/2021 11:11 PM [facility] Blood, arterial ARTERIAL BLOOD SPECIMEN / Unknown Arterial Puncture / Unknown 02/18/2021 11:03 PM T 02/18/2021 11:08 PM [facility] - 02/18/2021 11:11 PM [facility] Carboxyhemoglobin Normal Concentration: Non-smokers: 0-2%; Smokers: 0-9%; Toxic: >20% Fredy Felipe MD LAB - BLOOD GASES OR DERABLES [facility] [address] [place] [address], [facility] [phone] * PT-INR [facility] (02/18/2021 11:03 PM [facility]) PT 14.1 12.1 - 14.8 Seconds 02/18/2021 11:23 PM [facility] INR 1.1 See Comment 02/18/2021 11:23 PM [facility] Comment:The suggested therap eutic range for standard coumadin (warfarin) therapy is an INR of 2.0-3.0. For high-risk patients (Mechanical Mitral Valve Prosthesis, etc.), the suggested prophylactic therapeutic range is an INR of 2.5-3.5. Blood BLOOD SPECIMEN / Unknown Venipuncture / Unknown 02/18/2021 11:03 PM CDT 02/18/2021 11:08 PM CDT Fredy Felipe MD LAB - COAGULATION OR DERABLES Performing Organization Address City/[facility]/ZIP Co de Phone Number [address] [address], [facility] [phone] * (ABNORMAL) PHOSPHORUS BLOOD (02/18/2021 11:03 PM CDT) Phosphorus 2.3(L) 2.8 - 5.1 mg/dL 02/18/2021 11:33 PM CDT [facility] Blood BLOOD SPECIMEN / Unknown Venipuncture / Unknown 02/18/2021 11:03 PM CDT 02/18/2021 11:08 PM CDT Fredy Felipe MD LAB - CHEMISTRY JOSE ENRIQUE VELA Performing Organization Address [facility]/ZIP Co de Phone Number [address] [address], [facility] [phone] * MAGNESIUM BLOOD (02/18/2021 11:03 PM CDT) Magnesium 1.7 1.6 - 2.6 mg/dL 02/18/2021 11:32 PM CDT [facility] Blood BLOOD SPECIMEN / Unknown Venipuncture / Unknown 02/18/2021 11:03 PM CDT 02/18/2021 11:08 PM CDT Fredy Felipe MD LAB - CHEMISTRY JOSE ENRIQUE VELA Performing Organization Address City/[facility]/ZIP Co de Phone Number [address] [address], [facility] [phone] * (ABNORMAL) CALCIUM IONIZED WHOLE BLOOD (02/18/2021 11:03 PM CDT) Calcium Ionized 1.15 mmol/L 02/18/2021 11:10 PM CDT [facility] pH 7.45 7.35 - 7.45 pH 02/18/2021 11:10 PM CDT [facility] Ionized Calcium pH Adjusted 1.17(L) 1.19 - 1.34 mmol/L 02/18/2021 11:10 PM CDT [facility] Blood BLOOD SPECIMEN / Unknown Venipuncture / Unknown 02/18/2021 11:03 PM CDT 02/18/2021 11:08 PM CDT Fredy Felipe MD LAB - CHEMISTRY JOSE ENRIQUE VELA [facility] Organization Address City/State/ZIP Co de Phone Number [facility] [address] [place] [address], [facility] [phone] * XR CHEST 1VW PORTABLE (02/18/2021 5:25 AM CDT) Anatomical Region Laterality Modality Chest Radiographic Sera ging 02/18/2021 2:01 PM CDT Impressions 02/18/2021 4:01 PM CDT IMPRESSION: 1.Support devices as above. 2.Bilateral pulmonary opacities redemonstrated. Report dictated by Simone Alexander MD, PhD (resident medical officer). I, Dr. CHOCO JIN MD have personally [...] Report dictated by Simone Alexander MD, PhD (resident medical officer). I, Dr. CHOCO JIN MD have personally reviewed and interpreted this examination/study. This report was electronically signed by CHOCO JIN MD on02/18/2021 4:01 PM . Fredy Felipe MD DIAGNOSTIC IMAGING O RDERABLES * (ABNORMAL) CBC W AUTO DIFFERENTIAL (02/18/2021 12:04 AM CDT) [facility] WBC 16.3(H) 3.5 - 10.5 10? 3 /uL 02/18/2021 12:16 AM CDT [facility] RBC 4.69 4.30 - 5.70 10? 6 /uL 02/18/2021 12:16 AM [facility] Hemoglobin 13.1 12.0 - 17.6 g/dL 02/18/2021 12:16 AM [facility] Hematocrit 40.9 35.2 - 51.7 % 02/18/2021 12:16 AM [facility] MCV 87.2 80.7 - 98.3 fL 02/18/2021 12:16 AM [facility] MCH 27.9 26.7 - 34.0 pg 02/18/2021 12:16 AM [facility] MCHC 32.0 30.8 - 35.9 g/dL 02/18/2021 12:16 AM [facility] Platelet Count 292 150 - 400 10? 3 /uL 02/18/2021 12:16 AM [facility] RDW-SD 45.6 36.0 - 50.0 fL 02/18/2021 12:16 AM [facility] RDW-CV 14.2 11.2 - 14.8 % 02/18/2021 12:16 AM [facility] MPV 9.4 9.4 - 12.9 fL 02/18/2021 12:16 AM [facility] nRBC Absolute 0.00 0 10? 3 /uL 02/18/2021 12:16 AM [facility] nRBC Auto 0.0 0 /100 WBC 02/18/2021 12:16 AM [facility] Neutrophils % 85.7(H) 35.0 - 70.0 % 02/18/2021 12:16 AM [facility] Lymphocytes % 6.2(L) 20.0 - 43.0 % 02/18/2021 12:16 AM [facility] Monocytes % 7.4 5.0 - 13.0 % 02/18/2021 12:16 AM [facility] Eosinophils % 0.0 0.0 - 6.0 % 02/18/2021 12:16 AM [facility] Basophil % 0.2 0.0 - 2.0 % 02/18/2021 12:16 AM [facility] Neutrophils Absolute 13.9(H) 1.6 - 7.0 10? 3 /uL 02/18/2021 12:16 AM [facility] Lymphocyte Absolute 1.0(L) 1.1 - 3.9 10? 3 /uL 02/18/2021 12:16 AM [facility] Monocytes Absolute 1.21(H) 0.26 - 1.07 10? 3 /uL 02/18/2021 12:16 AM [facility] Eosinophils Absolute 0.00 0.00 - 0.47 10? 3 /uL 02/18/2021 12:16 AM [facility] Basophils Absolute 0.03 0.00 - 0.08 10? 3 /uL 02/18/2021 12:16 AM [facility] Immature Granulocytes % 0.5 0.0 - 1.0 % 02/18/2021 12:16 AM [facility] Immature Granulocytes Absolute 0.08 02/18/2021 12:16 AM [facility] Blood BLOOD SPECIMEN / Unknown Venipuncture / Unknown 02/18/2021 12:04 AM CDT 02/18/2021 12:08 AM CDT Fredy Felipe MD LAB - HEMATOLOGY ORD ERABLES [facility] [address] [place] [phone], [facility] [phone] * BASIC METABOLIC PANEL (CALCIUM TOTAL) (02/18/2021 12:04 AM CDT) BUN 11 7 - 26 mg/dL 02/18/2021 12:32 AM [facility] Creatinine 0.83 0.71 - 1.16 mg/dL 02/18/2021 12:32 AM [facility] Sodium 140 136 - 145 mmol/L 02/18/2021 12:32 AM [facility] Potassium 4.2 3.5 - 4.5 mmol/L 02/18/2021 12:32 AM [facility] Chloride 106 98 - 107 mmol/L 02/18/2021 12:32 AM [facility] CO2 24 22 - 29 mmol/L 02/18/2021 12:32 AM [facility] Glucose 102 70 - 115 mg/dL 02/18/2021 12:32 AM [facility] Calcium 8.6 8.4 - 10.2 mg/dL 02/18/2021 12:32 AM [facility] Anion Gap 14 8 - 18 02/18/2021 12:32 AM [facility] BUN/Creatinine Ratio 13 7 - 23 02/18/2021 12:32 AM [facility] Osmolality Calculated 290 270 - 300 mOsm/kg 02/18/2021 12:32 AM [facility] eGFR by CKD-EPI >90 >=90 mL/min/1.7 3 m2 02/18/2021 12:32 AM [facility] Blood BLOOD SPECIMEN / Unknown Venipuncture / Unknown 02/18/2021 12:04 AM CDT 02/18/2021 12:08 AM T Fredy Felipe MD LAB - CHEMISTRY JOSE ENRIQUE VELA [facility] Organization Address City/State/ZIP Co de Phone Number [facility] [address] [place] [address], [facility] [phone] * (ABNORMAL) BLOOD GASES ART + COOX PANEL (02/18/2021 12:04 AM [facility]) pH Arterial 7.40 7.35 - 7.45 pH 02/18/2021 12:11 AM [facility] pO2 Arterial 126(H) 80 - 100 mmHg 02/18/2021 12:11 AM [facility] pCO2 Arterial 42 35 - 45 mmHg 12:11 AM [facility] HCO3 Arterial 26 20 - 30 mmol/l 02/18/2021 12:11 AM [facility] BE Arterial 1.0 -2.0 - 2.0 mmol/L 02/18/2021 12:11 AM [facility] Oxyhemoglobin Arterial 97.0 % 02/18/2021 12:11 AM [facility] Dexoyhemoglobin (HHB) % 0.7 % 02/18/2021 12:11 AM [facility] Methemoglobin 1.0 0.0 - 2.0 % 02/18/2021 12:11 AM [facility] Carboxyhemoglobin 1.3 0.0 - 2.0 % 2020 12:11 AM [facility] O2 Content Arterial 18.7 Interpret within clinical context mg/dL 02/18/2021 12:11 AM [facility] Hemoglobin by COOX 13.6 12.0 - 17.6 g/dL 02/18/2021 12:11 AM [facility] O2 Saturation Arterial 99 90 - 100 % 02/18/2021 12:11 AM [facility] FI O2 Arterial 60.0 % 02/18/2021 12:11 AM [facility] Blood, arterial ARTERIAL BLOOD SPECIMEN / Unknown Arterial Puncture / Unknown 02/18/2021 12:04 AM T 02/18/2021 12:06 AM [facility] - 02/18/2021 12:11 AM [facility] Carboxyhemoglobin Normal Concentration: Non-smokers: 0-2%; Smokers: 0-9%; Toxic: >20% Fredy Felipe MD LAB - BLOOD GASES OR DERABLES Performing Organization Address City/State/[facility] Co de Phone Number [facility] [address] [place] [phone], [facility] [phone] * PT-INR [facility] (02/18/2021 12:04 AM [facility]) PT 14.3 12.1 - 14.8 Seconds 02/18/2021 12:25 AM [facility] INR 1.1 See Comment 02/18/2021 12:25 AM [facility] Comment:The suggested therap eutic range for standard coumadin (warfarin) therapy is an INR of 2.0-3.0. For high-risk patients (Mechanical Mitral Valve Prosthesis, etc.), the suggested prophylactic therapeutic range is an INR of 2.5-3.5. Blood BLOOD SPECIMEN / Unknown Venipuncture / Unknown 02/18/2021 12:04 AM CDT 02/18/2021 12:07 AM CDT Fredy Felipe MD LAB - COAGULATION OR DERABLES [address] [address], [facility] [phone] * PHOSPHORUS BLOOD (02/18/2021 12:04 AM CDT) Phosphorus 3.4 2.8 - 5.1 mg/dL 02/18/2021 12:32 AM CDT [facility] Blood BLOOD SPECIMEN / Unknown Venipuncture / Unknown 02/18/2021 12:04 AM CDT 02/18/2021 12:08 AM CDT Fredy Felipe MD LAB - CHEMISTRY [facility] Performing Organization Address City/[facility]/ZIP Co de Phone Number [address] [address], [facility] [phone] * MAGNESIUM BLOOD (02/18/2021 12:04 AM CDT) Magnesium 2.0 1.6 - 2.6 mg/dL 02/18/2021 12:32 AM CDT [facility] Blood BLOOD SPECIMEN / Unknown Venipuncture / Unknown 02/18/2021 12:04 AM CDT 02/18/2021 12:08 AM CDT Fredy Felipe MD LAB - CHEMISTRY [facility]RI[facility]EL[facility] [address] [address], [facility] [phone] * (ABNORMAL) CALCIUM IONIZED WHOLE BLOOD (02/18/2021 12:04 AM CDT) Calcium Ionized 1.14 mmol/L 02/18/2021 12:12 AM CDT [facility] pH 7.41 7.35 - 7.45 pH 02/18/2021 12:12 AM CDT [facility] Ionized Calcium pH Adjusted 1.14(L) 1.19 - 1.34 mmol/L 02/18/2021 12:12 AM CDT [facility] Blood BLOOD SPECIMEN / Unknown Venipuncture / Unknown 02/18/2021 12:04 AM CDT 02/18/2021 12:06 AM CDT rFedy Felipe MD LAB - CHEMISTRY [facility] Organization Address City/State/ZIP Co de Phone Number [facility] [address] [place] [address], [facility] [phone] * XR CHEST 1VW PORTABLE (02/17/2021 10:00 PM CDT) Anatomical Region Laterality Modality Chest Radiographic Sera ging 02/18/2021 9:45 AM CDT Impressions 02/18/2021 9:58 AM CDT IMPRESSION: 1.Support devices as above. 2.No pneumothorax. 3.Middle and lower lung zone atelectasis. Report dictated by Simone Alexander MD, PhD (resident medical officer). I, Dr. NENA CLEMENTE have personally reviewed [...] Report dictated by Simone Alexander MD, PhD (resident medical officer). I, Dr. NENA CLEMENTE have personally reviewed [...] the diaphragm with the terminus outside the [id number]. *Bilateral apically oriented thoracostomy tubes are reidentified. [...] on 02/17/2021. Dictated by Rico Sawant DO (resident medical officer). I, Dr. OSWALDO CLEMONS have personally reviewed [...] below the diaphragm with the terminusoutside the [id number]. *Bilateral apically oriented thoracostomy tubes are reidentified. [...] on 02/17/2021. Dictated by Rico Sawant DO (resident medical officer). I, Dr. OSWALDO CLEMONS have personally reviewed and interpreted this examination/study. This report was electronically signed by OSWALDO CLEMONS on 02/17/2021 2:39PM . Fredy Felipe MD DIAGNOSTIC IMAGING O RDERABLES * (ABNORMAL) CBC W AUTO DIFFERENTIAL (02/17/2021 12:13 AM T) WBC 21.4(H) 3.5 - 10.5 10? 3 /uL 02/17/2021 12:26 AM [facility] RBC 4.87 4.30 - 5.70 10? 6 /uL 02/17/2021 12:26 AM [facility] Hemoglobin 13.5 12.0 - 17.6 g/dL 02/17/2021 12:26 AM [facility] Hematocrit 41.8 35.2 - 51.7 % 02/17/2021 12:26 AM [facility] MCV 85.8 80.7 - 98.3 fL 02/17/2021 12:26 AM [facility] MCH 27.7 26.7 - 34.0 pg 02/17/2021 12:26 AM [facility] MCHC 32.3 30.8 - 35.9 g/dL 02/17/2021 12:26 AM [facility] Platelet Count 300 150 - 400 10? 3 /uL 02/17/2021 12:26 AM [facility] RDW-SD 45.7 36.0 - 50.0 fL 02/17/2021 12:26 AM [facility] RDW-CV 14.5 11.2 - 14.8 % 02/17/2021 12:26 AM [facility] MPV 9.0(L) 9.4 - 12.9 fL 02/17/2021 12:26 AM [facility] nRBC Absolute 0.00 0 10? 3 /uL 02/17/2021 12:26 AM [facility] nRBC Auto 0.0 0 /100 WBC 02/17/2021 12:26 AM [facility] Neutrophils % 88.2(H) 35.0 - 70.0 % 02/17/2021 12:26 AM [facility] Lymphocytes % 5.1(L) 20.0 - 43.0 % 02/17/2021 12:26 AM [facility] Monocytes % 6.0 5.0 - 13.0 % 02/17/2021 12:26 AM [facility] Eosinophils % 0.0 0.0 - 6.0 % 02/17/2021 12:26 AM [facility] Basophil % 0.1 0.0 - 2.0 % 02/17/2021 12:26 AM [facility] Neutrophils Absolute 18.9(H) 1.6 - 7.0 10? 3 /uL 02/17/2021 12:26 AM [facility] Lymphocyte Absolute 1.1 1.1 - 3.9 10? 3 /uL 02/17/2021 12:26 AM [facility] Monocytes Absolute 1.28(H) 0.26 - 1.07 10? 3 /uL 02/17/2021 12:26 AM [facility] Eosinophils Absolute 0.00 0.00 - 0.47 10? 3 /uL 02/17/2021 12:26 AM [facility] Basophils Absolute 0.02 0.00 - 0.08 10? 3 /uL 02/17/2021 12:26 AM [facility] Immature Granulocytes % 0.6 0.0 - 1.0 % 02/17/2021 12:26 AM [facility] Immature Granulocytes Absolute 0.12 02/17/2021 12:26 AM [facility] Blood BLOOD SPECIMEN / Unknown Venipuncture / Unknown 02/17/2021 12:13 AM CDT 02/17/2021 12:19 AM CDT Fredy Felipe MD LAB - HEMATOLOGY ORD ERABLES Performing Organization Address [facility]/ZIP Co de Phone Number [address] [address], [facility] [phone] * (ABNORMAL) PT-INR [facility] (02/17/2021 12:13 AM CDT) PT 14.9(H) 12.1 - 14.8 Seconds 02/17/2021 12:33 AM CDT [facility] INR 1.2 See Comment 02/17/2021 12:33 AM [facility] Comment:The suggested therap eutic range for standard coumadin (warfarin) therapy is an INR of 2.0-3.0. For high-risk patients (Mechanical Mitral Valve Prosthesis, etc.), the suggested prophylactic therapeutic range is an INR of 2.5-3.5. Blood BLOOD SPECIMEN / Unknown Venipuncture / Unknown 02/17/2021 12:13 AM CDT 02/17/2021 12:25 AM CDT Fredy Felipe MD LAB - COAGULATION OR DERABLES Performing Organization Address [facility]/ZIP Co de Phone Number [address] [address], [facility] [phone] * (ABNORMAL) BASIC METABOLIC PANEL (CALCIUM TOTAL) (02/17/2021 12:12 AM CDT) BUN 9 7 - 26 mg/dL 02/17/2021 12:43 AM CDT [facility] Creatinine 0.82 0.71 - 1.16 mg/dL 02/17/2021 12:43 AM T [facility] Sodium 140 136 - 145 mmol/L 02/17/2021 12:43 AM T [facility] Potassium 4.1 3.5 - 4.5 mmol/L 02/17/2021 12:43 AM T [facility] Chloride 105 98 - 107 mmol/L 02/17/2021 12:43 AM T [facility] CO2 27 22 - 29 mmol/L 02/17/2021 12:43 AM [facility] Glucose 118(H) 70 - 115 mg/dL 02/17/2021 12:43 AM [facility] Calcium 9.1 8.4 - 10.2 mg/dL 02/17/2021 12:43 AM [facility] Anion Gap 12 8 - 18 02/17/2021 12:43 AM [facility] BUN/Creatinine Ratio 11 7 - 23 02/17/2021 12:43 AM [facility] Osmolality Calculated 290 270 - 300 mOsm/kg 02/17/2021 12:43 AM [facility] eGFR by CKD-EPI >90 >=90 mL/min/1.7 3 m2 02/17/2021 12:43 AM [facility] Blood BLOOD SPECIMEN / Unknown Venipuncture / Unknown 02/17/2021 12:12 AM CDT 02/17/2021 12:19 AM CDT Fredy Felipe MD LAB - CHEMISTRY JOSE ENRIQUE VELA [address] [address], [facility] [phone] * PHOSPHORUS BLOOD (02/17/2021 12:12 AM CDT) Phosphorus 3.5 2.8 - 5.1 mg/dL 02/17/2021 12:43 AM T [facility] Blood BLOOD SPECIMEN / Unknown Venipuncture / Unknown 02/17/2021 12:12 AM CDT 02/17/2021 12:19 AM CDT Fredy Felipe MD LAB - CHEMISTRY JOSE ENRIQUE VELA [address] [address], [facility] [phone] * MAGNESIUM BLOOD (02/17/2021 12:12 AM CDT) Magnesium 1.9 1.6 - 2.6 mg/dL 02/17/2021 12:43 AM CDT [facility] Blood BLOOD SPECIMEN / Unknown Venipuncture / Unknown 02/17/2021 12:12 AM CDT 02/17/2021 12:19 AM CDT Fredy Felipe MD LAB - CHEMISTRY JOSE ENRIQUE VELA Performing Organization Address City/[facility]/ZIP Co de Phone Number [address] [address], [facility] [phone] * CALCIUM IONIZED WHOLE BLOOD (02/17/2021 12:12 AM CDT) Calcium Ionized 1.18 mmol/L 02/17/2021 12:21 AM CDT [facility] pH 7.43 7.35 - 7.45 pH 02/17/2021 12:21 AM CDT [facility] Ionized Calcium pH Adjusted 1.19 1.19 - 1.34 mmol/L 02/17/2021 12:21 AM CDT [facility] Blood BLOOD SPECIMEN / Unknown Venipuncture / Unknown 02/17/2021 12:12 AM CDT 02/17/2021 12:18 AM CDT Fredy Felipe MD LAB - CHEMISTRY JOSE ENRIQUE VELA [address] [address], [facility] [phone] * (ABNORMAL) BLOOD GASES ART + COOX PANEL (02/17/2021 12:12 AM CDT) pH Arterial 7.46(H) 7.35 - 7.45 pH 02/17/2021 12:22 AM CDT [facility] pO2 Arterial 108(H) 80 - 100 mmHg 02/17/2021 12:22 AM CDT [facility] pCO2 Arterial 40 35 - 45 mmHg 12:22 AM CDT [facility] HCO3 Arterial 28 20 - 30 mmol/l 02/17/2021 12:22 AM CDT [facility] BE Arterial 4.2(H) -2.0 - 2.0 mmol/L 02/17/2021 12:22 AM [facility] Oxyhemoglobin Arterial 96.5 % 02/17/2021 12:22 AM [facility] Dexoyhemoglobin (HHB) % 1.0 % 02/17/2021 12:22 AM [facility] Methemoglobin 0.9 0.0 - 2.0 % 02/17/2021 12:22 AM [facility] Carboxyhemoglobin 1.6 0.0 - 2.0 % 2020 12:22 AM [facility] O2 Content Arterial 19.1 Interpret within clinical context mg/dL 02/17/2021 12:22 AM [facility] Hemoglobin by COOX 14.0 12.0 - 17.6 g/dL 02/17/2021 12:22 AM [facility] O2 Saturation Arterial 99 90 - 100 % 02/17/2021 12:22 AM [facility] FI O2 Arterial 35.0 % 02/17/2021 12:22 AM [facility] Blood, arterial ARTERIAL BLOOD SPECIMEN / Unknown Arterial Puncture / Unknown 02/17/2021 12:12 AM CDT 02/17/2021 12:18 AM [facility] - 02/17/2021 12:22 AM [facility] Carboxyhemoglobin Normal Concentration: Non-smokers: 0-2%; Smokers: 0-9%; Toxic: >20% Fredy Felipe MD LAB - BLOOD GASES OR DERABLES Performing Organization Address City/State/[facility] Co de Phone Number [facility] [address] [place] [phone], [facility] [phone] * CT HEAD WO CONTRAST (02/16/2021 3:00 [...] mucosal disease. Dictated by Uyen Garcia MD (resident medical officer). I, Dr. JUNE MADRID have personally reviewed [...] mucosal disease. Dictated by Uyen Garcia MD (resident medical officer). I, Dr. JUNE MADRID have personally reviewed [...] courses to the stomach out of the [id number]. Chest wall and lower neck subcutaneous emphysema is decreased from prior study. Pneumomediastinum is decreased from prior study. Mild left basilar atelectasis is unchanged. Pleural effusion may contribute to opacity. There is no pneumothorax. The cardiomediastinal silhouette is partially obscured. Dictated by Alverto Ames MD (resident medical officer). Najma, Dr. EULA GONZALEZ have personally reviewed [...] courses to the stomach out of the [id number]. Chest wall and lower neck subcutaneous emphysema is decreased from prior study. Pneumomediastinum is decreased from prior study. Mild left basilar atelectasis is unchanged. Pleural effusion may contribute to opacity. There is no pneumothorax. The cardiomediastinal silhouette is partially obscured. Dictated by Alverto Ames MD (resident medical officer). I, Dr. EULA GONZALEZ have personally reviewed and interpreted this examination/study. This report was electronically signed by EULA GONZALEZ on 02/16/2021 12:26 PM . Fredy Felipe MD DIAGNOSTIC IMAGING O RDERABLES * (ABNORMAL) DIFFERENTIAL MANUAL (02/15/2021 10:34 PM CDT) WBC (corrected for NRBC) 24.3 10? 3 /uL 02/15/2021 11:58 PM [facility] Total Cell Count 100 02/16/20 21 11:58 PM [facility] Neutrophils Absolute Manual 22.36(H) 1.60 - 7.00 10? 3 /uL 02/15/2021 11:58 PM [facility] Comment:(BANDS+SEGS) x WBC = NEUT # (ANC) Lymphocyte Absolute Manual 0.49(L) 1.10 - 3.90 10? 3 /uL 02/15/2021 11:58 PM [facility] Monocytes Absolute Manual 1.46(H) 0.26 - 1.07 10? 3 /uL 02/15/2021 11:58 PM [facility] Band % Manual 4 0 - 10 % 02/15/2021 11:58 PM [facility] Neutrophil % Manual 88(H) 35 - 70 % 02/15/2021 11:58 PM [facility] Lymphocyte % Manual 2(L) 20 - 43 % 02/15/2021 11:58 PM [facility] Monocytes % Manual 6 5 - 13 % 02/15/2021 11:58 PM [facility] Platelet Estimate Adequate Adequate 02/15/2021 11:58 PM [facility] Anisocytosis 1+(A) None 02/15/2021 11:58 PM [facility] Blood BLOOD SPECIMEN / Unknown Venipuncture / Unknown 02/15/2021 10:34 PM CDT 02/15/2021 10:50 PM CDT Fredy Felpie MD LAB - HEMATOLOGY ORD ERABLES Performing Organization Address [facility] Co de Phone Number [address] [address], [facility] [phone] * PT-INR [facility] (02/15/2021 10:34 PM CDT) PT 14.6 12.1 - 14.8 Seconds 02/15/2021 11:05 PM T [facility] INR 1.2 See Comment 02/15/2021 11:05 PM [facility] Comment:The suggested therap eutic range for standard coumadin (warfarin) therapy is an INR of 2.0-3.0. For high-risk patients (Mechanical Mitral Valve Prosthesis, etc.), the suggested prophylactic therapeutic range is an INR of 2.5-3.5. Blood BLOOD SPECIMEN / Unknown Venipuncture / Unknown 02/15/2021 10:34 PM CDT 02/15/2021 10:45 PM CDT Fredy Felipe MD LAB - COAGULATION OR DERABLES Performing Organization Address [facility]/ZIP Co de Phone Number [address] [address], [place] [phone] * PHOSPHORUS BLOOD (02/15/2021 10:34 PM CDT) Pathologist [facility] Phosphorus 4.0 2.8 - 5.1 mg/dL 02/15/2021 11:17 PM CDT [facility] Blood BLOOD SPECIMEN / Unknown Venipuncture / Unknown 02/15/2021 10:34 PM CDT 02/15/2021 10:50 PM CDT Fredy Felipe MD LAB - CHEMISTRY JOSE ENRIQUE VELA Performing Organization Address City/[facility]/ZIP Co de Phone Number [address] [address], [facility] [phone] * MAGNESIUM BLOOD (02/15/2021 10:34 PM CDT) Pathologist [facility] Magnesium 1.8 1.6 - 2.6 mg/dL 02/15/2021 11:17 PM CDT [facility] Blood BLOOD SPECIMEN / Unknown Venipuncture / Unknown 02/15/2021 10:34 PM CDT 02/15/2021 10:50 PM CDT Fredy Felipe MD LAB - CHEMISTRY JOSE ENRIQUE VELA Performing Organization Address City/[facility]/ZIP Co de Phone Number [address] [address], [place] [phone] * (ABNORMAL) BASIC METABOLIC PANEL (CALCIUM TOTAL) (02/15/2021 10:34 PM CDT) Pathologist [facility] BUN 9 7 - 26 mg/dL 02/15/2021 11:17 PM CDT [facility] Creatinine 0.90 0.71 - 1.16 mg/dL 02/15/2021 11:17 PM CDT [facility] Sodium 144 136 - 145 mmol/L 02/15/2021 11:17 PM CDT [facility] Potassium 4.0 3.5 - 4.5 mmol/L 02/15/2021 11:17 PM CDT [facility] Chloride 106 98 - 107 mmol/L 02/15/2021 11:17 PM CDT [facility] CO2 26 22 - 29 mmol/L 02/15/2021 11:17 PM [facility] Glucose 118(H) 70 - 115 mg/dL 02/15/2021 11:17 PM [facility] Calcium 9.1 8.4 - 10.2 mg/dL 02/15/2021 11:17 PM [facility] Anion Gap 16 8 - 18 02/15/2021 11:17 PM [facility] BUN/Creatinine Ratio 10 7 - 23 02/15/2021 11:17 PM [facility] Osmolality Calculated 298 270 - 300 mOsm/kg 02/15/2021 11:17 PM [facility] eGFR by CKD-EPI >90 >=90 mL/min/1.7 3 m2 02/15/2021 11:17 PM [facility] Blood BLOOD SPECIMEN / Unknown Venipuncture / Unknown 02/15/2021 10:34 PM CDT 02/15/2021 10:50 PM T Fredy Felipe MD LAB - CHEMISTRY JOSE ENRIQUE VELA [facility] Organization Address City/State/ZIP Co de Phone Number [facility] [address] [place] [address], [facility] [phone] * (ABNORMAL) BLOOD GASES ART + COOX PANEL (02/15/2021 10:34 PM T) pH Arterial 7.48(H) 7.35 - 7.45 pH 02/15/2021 10:50 PM [facility] pO2 Arterial 71(L) 80 - 100 mmHg 02/15/2021 10:50 PM [facility] pCO2 Arterial 38 35 - 45 mmHg 10:50 PM [facility] HCO3 Arterial 28 20 - 30 mmol/l 02/15/2021 10:50 PM [facility] BE Arterial 4.6(H) -2.0 - 2.0 mmol/L 02/15/2021 10:50 PM [facility] Oxyhemoglobin Arterial 93.4 % 02/15/2021 10:50 PM [facility] Dexoyhemoglobin (HHB) % 3.9 % 02/15/2021 10:50 PM [facility] Methemoglobin <0.8 0.0 - 2.0 % 02/15/2021 10:50 PM [facility] Carboxyhemoglobin 2.0 0.0 - 2.0 % 2020 10:50 PM [facility] O2 Content Arterial 18.8 Interpret within clinical context mg/dL 02/15/2021 10:50 PM [facility] Hemoglobin by COOX 14.3 12.0 - 17.6 g/dL 02/15/2021 10:50 PM [facility] O2 Saturation Arterial 96 90 - 100 % 02/15/2021 10:50 PM [facility] FI O2 Arterial 40.0 % 02/15/2021 10:50 PM [facility] Blood, arterial ARTERIAL BLOOD SPECIMEN / Unknown Arterial Puncture / Unknown 02/15/2021 10:34 PM CDT 02/15/2021 10:45 PM CDT [facility] - 02/15/2021 10:50 PM CDT Carboxyhemoglobin Normal Concentration: Non-smokers: 0-2%; Smokers: 0-9%; Toxic: >20% Fredy Felipe MD LAB - BLOOD GASES OR DERABLES Performing Organization Address City/State/[facility] Co de Phone Number [facility] [address] [place] [address], [facility] [phone] * (ABNORMAL) CBC W AUTO DIFFERENTIAL (02/15/2021 10:34 PM CDT) WBC 24.3(H) 3.5 - 10.5 10? 3 /uL 02/15/2021 10:57 PM [facility] RBC 4.98 4.30 - 5.70 10? 6 /uL 02/15/2021 10:57 PM [facility] Hemoglobin 13.8 12.0 - 17.6 g/dL 02/15/2021 10:57 PM [facility] Hematocrit 42.1 35.2 - 51.7 % 02/15/2021 10:57 PM [facility] MCV 84.5 80.7 - 98.3 fL 02/15/2021 10:57 PM CDT [facility] MCH 27.7 26.7 - 34.0 pg 02/15/2021 10:57 PM T [facility] MCHC 32.8 30.8 - 35.9 g/dL 02/15/2021 10:57 PM [facility] Platelet Count 315 150 - 400 10? 3 /uL 02/15/2021 10:57 PM [facility] RDW-SD 44.1 36.0 - 50.0 fL 02/15/2021 10:57 PM [facility] RDW-CV 14.4 11.2 - 14.8 % 02/15/2021 10:57 PM [facility] MPV 9.0(L) 9.4 - 12.9 fL 02/15/2021 10:57 PM [facility] nRBC Absolute 0.00 0 10? 3 /uL 02/15/2021 10:57 PM [facility] nRBC Auto 0.0 0 /100 WBC 02/15/2021 10:57 PM [facility] Blood BLOOD SPECIMEN / Unknown Venipuncture / Unknown 02/15/2021 10:34 PM CDT 02/15/2021 10:50 PM CDT Fredy Felipe MD LAB - HEMATOLOGY ORD ERABLES [facility] [address] [place] [address], [facility] [phone] * (ABNORMAL) CALCIUM IONIZED WHOLE BLOOD (02/15/2021 10:34 PM CDT) [facility] Calcium Ionized 1.17 mmol/L 02/15/2021 10:53 PM [facility] pH 7.50(H) 7.35 - 7.45 pH 02/15/2021 10:53 PM [facility] Ionized Calcium pH Adjusted 1.22 1.19 - 1.34 mmol/L 02/15/2021 10:53 PM [facility] Blood BLOOD SPECIMEN / Unknown Venipuncture / Unknown 02/15/2021 10:34 PM CDT 02/15/2021 10:46 PM CDT Fredy Felipe MD LAB - CHEMISTRY JOSE ENRIQUE P[facility] Organization Address City/State/ZIP Co de Phone Number [facility] [address] [place] [address], [facility] [phone] * (ABNORMAL) BLOOD GASES ART + COOX PANEL (02/15/2021 10:41 AM CDT) pH Arterial 7.46(H) 7.35 - 7.45 pH 02/15/2021 10:47 AM [facility] pO2 Arterial 99 80 - 100 mmHg 02/15/2021 10:47 AM [facility] pCO2 Arterial 37 35 - 45 mmHg 10:47 AM [facility] HCO3 Arterial 26 20 - 30 mmol/l 02/15/2021 10:47 AM [facility] BE Arterial 2.6(H) -2.0 - 2.0 mmol/L 02/15/2021 10:47 AM [facility] Oxyhemoglobin Arterial 96.5 % 02/15/2021 10:47 AM [facility] Dexoyhemoglobin (HHB) % 1.2 % 02/15/2021 10:47 AM [facility] Methemoglobin 0.9 0.0 - 2.0 % 02/15/2021 10:47 AM [facility] Carboxyhemoglobin 1.4 0.0 - 2.0 % 2020 10:47 AM [facility] O2 Content Arterial 21.4 Interpret within clinical context mg/dL 02/15/2021 10:47 AM [facility] Hemoglobin by COOX 15.7 12.0 - 17.6 g/dL 02/15/2021 10:47 AM [facility] O2 Saturation Arterial 99 90 - 100 % 02/15/2021 10:47 AM [facility] FI O2 Arterial 50.0 % 02/15/2021 10:47 AM [facility] Blood, arterial ARTERIAL BLOOD SPECIMEN / Unknown Arterial Puncture / Unknown 02/15/2021 10:41 AM CDT 02/15/2021 10:45 AM CDT Narrative [facility] - 02/15/2021 10:47 AM CDT Carboxyhemoglobin Normal Concentration: Non-smokers: 0-2%; Smokers: 0-9%; Toxic: >20% Fredy Felipe MD LAB - BLOOD GASES OR DERABLES Performing Organization Address [facility] de Phone Number [address] [address], [facility] [phone] * (ABNORMAL) CALCIUM IONIZED WHOLE BLOOD (02/15/2021 10:41 AM CDT) [facility] Calcium Ionized 1.19 mmol/L 02/15/2021 10:47 AM T [facility] pH 7.46(H) 7.35 - 7.45 pH 02/15/2021 10:47 AM T [facility] Ionized Calcium pH Adjusted 1.22 1.19 - 1.34 mmol/L 02/15/2021 10:47 AM T [facility] Blood BLOOD SPECIMEN / Unknown Venipuncture / Unknown 02/15/2021 10:41 AM CDT 02/15/2021 10:44 AM CDT Fredy Felipe MD LAB - CHEMISTRY ORDE RABLES Performing Organization Address [facility] Co de Phone Number [address] [address], [facility] [phone] * (ABNORMAL) DIFFERENTIAL MANUAL (02/15/2021 10:40 AM CDT) WBC (corrected for NRBC) 35.7 10? 3 /uL 02/15/2021 11:39 AM CDT [facility] Total Cell Count 100 02/15/2021 11:39 AM [facility] Neutrophils Absolute Manual 33.56(H) 1.60 - 7.00 10? 3 /uL 02/15/2021 11:39 AM T [facility] Comment:(BANDS+SEGS) x WBC = NEUT # (ANC) Lymphocyte Absolute Manual 0.71(L) 1.10 - 3.90 10? 3 /uL 02/15/2021 11:39 AM [facility] Monocytes Absolute Manual 1.43(H) 0.26 - 1.07 10? 3 /uL 02/15/2021 11:39 AM [facility] Band % Manual 2 0 - 10 % 02/15/2021 11:39 AM [facility] Neutrophil % Manual 92(H) 35 - 70 % 02/15/2021 11:39 AM [facility] Lymphocyte % Manual 2(L) 20 - 43 % 02/15/2021 11:39 AM [facility] Monocytes % Manual 4(L) 5 - 13 % 02/15/2021 11:39 AM [facility] Platelet Estimate Adequate Adequate 02/15/2021 11:39 AM [facility] RBC Morphology Normal 02/15/2021 11:39 AM [facility] Blood BLOOD SPECIMEN / Unknown Venipuncture / Unknown 02/15/2021 10:40 AM CDT 02/15/2021 10:48 AM CDT Fredy Felipe MD LAB - HEMATOLOGY ORD TERESA [address] [address], [facility] [phone] * (ABNORMAL) PHOSPHORUS BLOOD (02/15/2021 10:40 AM CDT) Phosphorus 2.4(L) 2.8 - 5.1 mg/dL 02/15/2021 11:14 AM T [facility] Blood BLOOD SPECIMEN / Unknown Venipuncture / Unknown 02/15/2021 10:40 AM CDT 02/15/2021 10:48 AM CDT Fredy Felipe MD LAB - CHEMISTRY ORDNolan VELA [address] [address], [place] [phone] * MAGNESIUM BLOOD (02/15/2021 10:40 AM CDT) Pathologist [facility] Magnesium 1.8 1.6 - 2.6 mg/dL 02/15/2021 11:14 AM [facility] Blood BLOOD SPECIMEN / Unknown Venipuncture / Unknown 02/15/2021 10:40 AM CDT 02/15/2021 10:48 AM CDT Fredy Felipe MD LAB - CHEMISTRY JOSE ENRIQUE VELA [facility] Organization Address City/State/ZIP Co de Phone Number [facility] [address] [place] [address], [facility] [phone] * (ABNORMAL) CBC W AUTO DIFFERENTIAL (02/15/2021 10:40 AM CDT) Pathologist [facility] WBC 35.7(H) 3.5 - 10.5 10? 3 /uL 02/15/2021 11:16 AM [facility] RBC 5.37 4.30 - 5.70 10? 6 /uL 02/15/2021 11:16 AM [facility] Hemoglobin 15.2 12.0 - 17.6 g/dL 02/15/2021 11:16 AM [facility] Hematocrit 45.5 35.2 - 51.7 % 02/15/2021 11:16 AM [facility] MCV 84.7 80.7 - 98.3 fL 02/15/2021 11:16 AM [facility] MCH 28.3 26.7 - 34.0 pg 02/15/2021 11:16 AM [facility] MCHC 33.4 30.8 - 35.9 g/dL 02/15/2021 11:16 AM [facility] Platelet Count 358 150 - 400 10? 3 /uL 02/15/2021 11:16 AM [facility] RDW-SD 43.5 36.0 - 50.0 fL 02/15/2021 11:16 AM [facility] RDW-CV 14.2 11.2 - 14.8 % 02/15/2021 11:16 AM [facility] MPV 8.9(L) 9.4 - 12.9 fL 02/15/2021 11:16 AM [facility] nRBC Absolute 0.00 0 10? 3 /uL 02/15/2021 11:16 AM [facility] nRBC Auto 0.0 0 /100 WBC 02/15/2021 11:16 AM [facility] Blood BLOOD SPECIMEN / Unknown Venipuncture / Unknown 02/15/2021 10:40 AM CDT 02/15/2021 10:48 AM T Fredy Felipe MD LAB - HEMATOLOGY ORD ERABLES [facility] [address] [place] [address], [facility] [phone] * (ABNORMAL) COMPREHENSIVE METABOLIC PANEL (02/15/2021 10:40 AM [facility]) BUN 10 7 - 26 mg/dL 02/15/2021 11:14 AM [facility] Creatinine 1.02 0.71 - 1.16 mg/dL 02/15/2021 11:14 AM [facility] Sodium 144 136 - 145 mmol/L 02/15/2021 11:14 AM [facility] Potassium 3.8 3.5 - 4.5 mmol/L 02/15/2021 11:14 AM [facility] Chloride 105 98 - 107 mmol/L 02/15/2021 11:14 AM [facility] CO2 26 22 - 29 mmol/L 02/15/2021 11:14 AM [facility] Glucose 171(H) 70 - 115 mg/dL 02/15/2021 11:14 AM [facility] Calcium 9.6 8.4 - 10.2 mg/dL 02/15/2021 11:14 AM [facility] Protein Total 6.9 6.0 - 8.3 g/dL 02/15/2021 11:14 AM [facility] Albumin 3.5 3.4 - 5.0 g/dL 02/15/2021 11:14 AM [facility] Bilirubin Total 0.4 0.2 - 1.2 mg/dL 02/15/2021 11:14 AM [facility] Alkaline Phosphatase 97 40 - 150 U/L 02/15/2021 11:14 AM [facility] ALT 78(H) 5 - 55 U/L 02/15/2021 11:14 AM [facility] AST 96(H) 5 - 34 U/L 02/15/2021 11:14 AM [facility] Anion Gap 17 8 - 18 02/15/2021 11:14 AM [facility] BUN/Creatinine Ratio 10 7 - 23 02/15/2021 11:14 AM [facility] Osmolality Calculated 301(H) 270 - 300 mOsm/kg 02/15/2021 11:14 AM [facility] Albumin/Globulin Ratio 1.0(L) 1.1 - 2.3 02/15/2021 11:14 AM [facility] eGFR by CKD-EPI >90 >=90 mL/min/1.7 3 m2 02/15/2021 11:14 AM [facility] Blood BLOOD SPECIMEN / Unknown Venipuncture / Unknown 02/15/2021 10:40 AM CDT 02/15/2021 10:48 AM [facility] Fredy Felipe MD LAB - CHEMISTRY JOSE ENRIQUE VELA [facility] Organization Address [facility]/State/ZIP Co de Phone Number [facility] [address] [place] [id number], [facility] [phone] * TEG 6 GLOBAL HEMOSTASIS W/ LYSIS (02/15/2021 8:14 AM CDT) Citrated Kaolin R (Reaction Time) 7.0 4.6 - 9.1 min 02/15/2021 9:28 AM [facility] Citrated Kaolin LY30 (Lysis) 0.6 0.0 - 2.6 % 02/15/2021 9:28 AM [facility] Citrated RapidTEG MA (Max Amplitude) 65 52 - 70 mm 02/15/2021 9:28 AM [facility] Citrated Functional Fibrinogen MA (Max Amplitude) 23 15 - 32 mm 02/15/2021 9:28 AM CDT [facility] Blood BLOOD SPECIMEN / Unknown Venipuncture / Unknown 02/15/2021 8:14 AM CDT 02/15/2021 8:20 AM CDT Fredy Felipe MD LAB - HEMATOLOGY ORD ERABLES Performing Organization Address City/[facility]/ZIP Co de Phone Number [facility] [address] [place] [address], [facility] [phone] * (ABNORMAL) TEG 6S PLATELET MAPPING (02/15/2021 8:14 AM CDT) TEGPLM (Max Amplitude) Koalin 64 53 - 68 mm 02/15/2021 9:13 AM CDT [facility] TEGPLM (Max Amplitude) ACTF 14 2 - 19 mm 02/15/2021 9:13 AM T [facility] TEGPLM (Max Amplitude) ADP 15(L) 45 - 69 mm 02/15/2021 9:13 AM T [facility] TEGPLM (Max Amplitude) AA 64 51 - 71 mm 02/15/2021 9:13 AM T [facility] TEGPLM %Inhibition ADP 99(H) 0 - 17 % 02/15/2021 9:13 AM T [facility] TEGPLM %Inhibition AA 1 0 - 11 % 02/15/2021 9:13 AM T [facility] TEGPLM %Aggregation ADP 1(L) 83 - 100 % 02/15/2021 9:13 AM T [facility] TEGPLM % Aggregation AA 99 89 - 100 % 02/15/2021 9:13 AM T [facility] Blood BLOOD SPECIMEN / Unknown Venipuncture / Unknown 02/15/2021 8:14 AM CDT 02/15/2021 8:20 AM CDT Fredy Felipe MD LAB - HEMATOLOGY ORD ERABLES [facility] [address] [place] [phone], [facility] [phone] * XR CHEST 1VW PORTABLE (02/15/2021 7:15 [...] findings above. Dictated by Rico Sawant DO (resident medical officer). I, Dr. EULA GONZALEZ have personally reviewed [...] findings above. Dictated by Rico Sawant DO (resident medical officer). I, Dr. EULA GONZALEZ have personally reviewed and interpreted this examination/study. This report was electronically signed by EULA GONZALEZ on 02/15/2021 7:28 PM . Fredy Felipe MD DIAGNOSTIC IMAGING O RDERABLES * (ABNORMAL) URINALYSIS W/MICROSCOPIC NO CULTURE (02/15/2021 6:46 AM CDT) Color UA Yellow Straw, Yellow 02/15/2021 7:10 AM [facility] Clarity UA Slt Cloudy(A) Clear 02/15/2021 7:10 AM [facility] Specific Palmer UA 1.014 1.005 - 1.030 02/15/2021 7:10 AM [facility] pH UA 6.0 5.0 - 8.0 pH 02/15/2021 7:10 AM [facility] Protein UA 2+(A) Negative 02/15/2021 7:10 AM [facility] Glucose UA 3+(A) Negative 02/15/2021 7:10 AM [facility] Ketone UA Trace(A) Negative 02/15/2021 7:10 AM [facility] Bilirubin UA Negative Negative 02/15/2021 7:10 AM [facility] Blood UA Negative Negative 02/15/2021 7:10 AM [facility] Nitrite UA Negative Negative 02/15/2021 7:10 AM [facility] Leukocyte Esterase Negative Negative 02/15/2021 7:10 AM [facility] Urobilinogen UA Negative Negative mg/dL 02/15/2021 7:10 AM [facility] RBC UA 3-5 None Seen, 0-2, 3-5 /HPF 02/15/2021 7:10 AM [facility] WBC UA 0-5 None Seen, 0-5 /HPF 02/15/2021 7:10 AM [facility] Squamous Epithelial Cells UA None Seen None Seen, 0-2, 3-5 /HPF 02/15/2021 7:10 AM [facility] Mucus UA 1+ /LPF 02/15/2021 7:10 AM [facility] Urine URINE SPECIMEN OBTAINED BY CLEAN CATCH PROCEDURE / Unknown Collection / Unknown 02/15/2021 6:46 AM CDT 02/15/2021 6:49 AM CDT Narrative [facility] - 02/15/2021 7:10 AM CDT Fredy Felipe MD LAB - URINALYSIS ORD ERABLES [address] [address], [facility] [phone] * (ABNORMAL) URINE DRUG SCREEN IMMUNOASSAY (02/15/2021 6:46 AM T) Amphetamines Screen Urine Negative Negative : < 1000 ng/mL 02/15/2021 7:18 AM [facility] Barbiturates Screen Urine Negative Negative : < 200 ng/mL 02/15/2021 7:18 AM [facility] Benzodiazepine Screen Urine Positive(A) Negative : < 200 ng/mL 02/15/2021 7:18 AM [facility] Comment: Positive urine benzodiazepine screening results should be confirmed by another generally accepted non-immunological method such as gas chromatography or mass spectrometry. ? Opiates Urine Negative Negative : < 300 ng/mL 02/15/2021 7:18 AM [facility] Cocaine Metabolites Urine Negative Negative : < 300 ng/mL 02/15/2021 7:18 AM [facility] Phencyclidine Screen Urine Negative Negative : < 25 ng/ml 02/15/2021 7:18 AM [facility] Cannabinoids Screen Urine Positive(A) Negative : <50 ng/mL 02/15/2021 7:18 AM [facility] Comment:Positive urine canna binoids (THC) screening results should be confirmed by another generally accepted non-immunological method such as gas chromatography or mass spectrometry. Methadone Screen Urine Negative Negative : < 300 ng/mL 02/15/2021 7:18 AM CDT [facility] Fentanyl Screen Urine Positive(A) Negative : <1.0 ng/mL 02/15/2021 7:18 AM CDT [facility] Comment:Positive urine fenta nyl screening results should be confirmed by another generally accepted non-immunological method such as gas chromatography or mass spectrometry. Urine URINE / Unknown Collection / Unknown 02/15/2021 6:46 AM CDT 02/15/2021 6:54 AM CDT Narrative [facility] - 02/15/2021 7:18 AM CDT The Urine Toxicology Screening Panel does not screen for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
--- OUTSIDE RECORDS SUMMARY | 2024-05-23 03:31 | XMS_ITS | Referral Summary ---
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 Gender Identity Not on file Sexual Orientation Not on file Last Filed Vital Signs Vital Sign Reading Time Taken Comments Blood Pressure 169/100 02/01/2022 9:35 AM CDT Yousef aware and ok with transport Pulse 100 02/01/2022 9:35 AM CDT Temperature 37.2 ??C (99 ??F) 01/31/2022 11: 33 PM CDT Respiratory Rate 16 02/01/2022 9:35 AM CDT Oxygen Saturation 92% 02/01/2022 9:3 5 AM CDT Inhaled Oxygen Concentration - - Weight 100 kg (220 lb 7.4 oz) 01/31/2022 11:33 PM CDT Height 170.2 cm (5' 7 ) 06/01/2016 4:44 AM PAPER BAG MACHINE OPERATOR Body Mass Index 34.53 06/01/2016 4:44 AM PAPER BAG MACHINE OPERATOR Plan of Treatment Not on file Procedures Procedure Name Priority Date/Time Associated Diagnosis Comments HEPATITIS PANEL, ACUTE Routine 08/01/2021 11:40 AM CDT from Last 3 Months or Most Recently Relevant to Health Maintenance Results * (ABNORMAL) Hepatitis panel, acute (08/01/2021 11:40 AM CDT) Hep A IgM Nonreactive Nonreactive [facility] Comment: Interpretive Data: If Hep A IgM Ab is reported as Equivocal, a new sample should be drawn in two weeks for testing. Current interpretive data was last revised on 19. Hep B core IgM Nonreactive Nonreactive [facility] Comment: Interpretive Data If HepB Core IgM Ab is reported as Equivocal, a new sample should be drawn in two weeks for testing. Current interpretive data was last revised on 19. Hep C Ab Reactive(A) Nonreactive [facility] Comment:Positive for HCV ant ibodies.?? This may represent current or past HCV infection. Supplemental molecular testing will be automatically performed to determine ??current infection status in accordance with current CDC screening recommendations. HepBsAg Nonreactive Nonreactive [facility] Blood 08/01/2021 11:4 0 AM CDT 08/01/2021 9:22 PM CDT us Notinfile Unknown LAB MICROBIOLOGY - GENERAL ORD ERABLES Final Result [facility] One [facility] Department [place] [address] from Last 3 Months or Most Recently Relevant to Health Maintenance Insurance MIKEL GUTIERREZ [id number] MIKEL GUTIER[address]Z [facility] Care Teams Vp Delivery Relationship Specialty Start Date End Date No, Physician PCP - General 11/08/21
--- OUTSIDE RECORDS SUMMARY | 2024-05-23 03:31 | XMS_ITS | Encounter Summary ---
Author Organization [facility] Address [address] [place] [address] Care Team Providers Care Drag Down Name Role Phone Unavailable Primary Care Provider [place] e Encounter Details Date Type Department Care Team (Late st Contact Info) Description 07/12/2021 7:50 AM TOBACCO PRIZER Lab [address] [address] Social History Tobacco Use Types Packs/Day Years Used Date Smoking Tobacco: Never Assessed Sex and Gender Information Value Date Recorded Sex Assigned at Not on file Legal Sex Male 7:30 PM TOBACCO PRIZER Gender Identity Not on file Sexual Orientation Not on file documented as of this encounter Plan of Treatment Not on file documented as of this encounter Procedures Procedure Name Priority Date/Time Associated Diagnosis Comments EGFR STAT 07/12/2021 4:00 AM TOBACCO PRIZER COMPREHENSIVE METABOIC PANEL, SERUM STAT 07/12/2021 4:00 AM TOBACCO PRIZER documented in this encounter Results * eGFR (07/12/2021 4:00 AM TOBACCO PRIZER) eGFR >90 90 - 130 mL/min/1. 73 m2 [facility] Comment: Interpretive Data Reference Interval Normal ?>/= 90 mL/min/1.73m2 Mildly decreased* ? 60 - 89 mL/min/1.73m2 Mildly to moderately decreased ?45 - 59 mL/min/1.73m2 Moderately to severely decreased ??30 - 44 mL/min/1.73m2 Severely decreased ?15 - 29 mL/min/1.73m2 Kidney Failure ?< 15 ??mL/min/1.73m2 *Relative to young adult level Estimated glomerular filtration rate is determined by the 2020 CKD-EPI equation recommended by the National Kidney Foundation (A Unifying Approach to GFR Estimation: Recommendations of the NKF-ASK Task Force on Reassessing the Inclusion of Race in Diagnosing Kidney Disease, JASN 202). The CKD-EPI equation should not be used for patients with unstable renal function and has not been validated in children and those over 70. Current interpretive data was last reviewed 2021. Blood 07/12/2021 4:00 AM TOBACCO PRIZER 07/12/2021 7:50 AM TOBACCO PRIZER us Henok Hernandez MD LAB BLOOD ORDERABLES Final Re sult [facility] One [facility] Department [place] [address] * (ABNORMAL) Comprehensive metabolic panel, serum (07/12/2021 4:00 AM TOBACCO PRIZER) Sodium 138 135 - 145 mmol/L [facility] Potassium, sr 5.4(H) 3.6 - 5.2 mmol/L [facility] Chloride 100 97 - 110 mmol/L [facility] CO2 28 22 - 32 mmol/L [facility] Anion gap 10 2 - 15 mmol/L [facility] BUN 26(H) 8 - 25 mg/dL [facility] Creatinine 0.90 0.80 - 1.30 mg/dL [facility] Glucose 92 70 - 199 mg/dL [facility] Comment: Interpretive Data Fasting glucose >/= 126 mg/dl is diagnostic for diabetes. ?? Fasting is defined as no caloric intake for at least 8 hours. Fasting glucose between 100 mg/dl to 125 mg/dl is diagnostic of prediabetes. In a patient with classic symptoms of hyperglycemia or hyperglycemic crisis, a random glucose >/= 200 mg/dl is diagnostic for diabetes. In the absence of unequivocal hyperglycemia, results should be confirmed by repeat testing. The classification and Diagnosis of Diabetes Diabetes Care 2017;40 (Suppl. 1):S11. Current interpretive data was last revised 2017. Calcium 10.3 8.5 - 10.3 mg/dL [facility] Bilirubin, total 0.2 0.1 - 1.2 mg/dL [facility] Protein, sr 7.7 6.2 - 8.2 g/dL [facility] Albumin 3.9 3.5 - 5.0 g/dL [facility] Alk phos 137(H) 40 - 130 Units/L [facility] ALT 30 7 - 55 Units/L [facility] AST 15 10 - 50 Units/L [facility] Blood 07/12/2021 4:00 AM TOBACCO PRIZER 07/12/2021 7:50 AM TOBACCO PRIZER Henok Hernandez MD LAB BLOOD ORDERABLES Final Re sult [facility] One [facility] Department [place] [address] documented in this encounter Visit Diagnoses Not on filedocumented in this encounter
--- OUTSIDE RECORDS SUMMARY | 2024-05-23 03:31 | XMS_ITS | Encounter Summary ---
Author Organization [facility] Healthcare Address [address] [place] [address] Care Team Providers Care Flight Information Expediter Name Role Phone Unavailable Primary Care Provider [place] e Encounter Details Date Type Department Care Team (Late st Contact Info) Description 06/01/2021 8:40 AM TIPPING MACHINE OPERATOR Lab [address] [address] Social History Tobacco Use Types Packs/Day Years Used Date Smoking Tobacco: Never Assessed Sex and Gender Information Value Date Recorded Sex Assigned at Not on file Legal Sex Male 7:30 PM TIPPING MACHINE OPERATOR Gender Identity Not on file Sexual Orientation Not on file documented as of this encounter Plan of Treatment Not on file documented as of this encounter Procedures Procedure Name Priority Date/Time Associated Diagnosis Comments EGFR Routine 06/01/2021 3:00 AM TIPPING MACHINE OPERATOR COMPREHENSIVE METABOIC PANEL, SERUM Routine 06/01/2021 3:00 AM TIPPING MACHINE OPERATOR documented in this encounter Results * eGFR (06/01/2021 3:00 AM TIPPING MACHINE OPERATOR) eGFR >90 90 - 130 mL/min/1. 73 m2 [facility] Comment: Interpretive Data Reference Interval Normal ?>/= [...] interpretive data was last reviewed 2021. Blood 06/01/2021 3:00 AM TIPPING MACHINE OPERATOR 06/01/2021 8:42 AM TIPPING MACHINE OPERATOR Braden Hernandez MD LAB BLOOD ORDERABL ES Final Result [facility] One [facility] Department [place] [address] * (ABNORMAL) Comprehensive metabolic panel, serum (06/01/2021 3:00 AM TIPPING MACHINE OPERATOR) Sodium 135 135 - 145 mmol/L [facility] Potassium, sr 5.9(H) 3.6 - 5.2 mmol/L [facility] Chloride 95(L) 97 - 110 mmol/L [facility] CO2 27 22 - 32 mmol/L [facility] Anion gap 13 2 - 15 mmol/L [facility] BUN 27(H) 8 - 25 mg/dL [facility] Creatinine 0.81 0.80 - 1.30 mg/dL [facility] Glucose 101 70 - 199 mg/dL [facility] Comment: Interpretive Data Fasting glucose >/= 126 [...] interpretive data was last revised 2017. Calcium 10.2 8.5 - 10.3 mg/dL [facility] Bilirubin, total <0.2 0.1 - 1.2 mg/dL [facility] Protein, sr 7.6 6.2 - 8.2 g/dL [facility] Albumin 3.8 3.5 - 5.0 g/dL [facility] Alk phos 180(H) 40 - 130 Units/L [facility] ALT 46 7 - 55 Units/L [facility] AST 25 10 - 50 Units/L [facility] Blood 06/01/2021 3:00 AM TIPPING MACHINE OPERATOR 06/01/2021 8:37 AM TIPPING MACHINE OPERATOR Braden Hernandez MD LAB BLOOD ORDERABL ES Final Result [facility] One [facility] [place] [address] documented in this encounter Visit Diagnoses Not on filedocumented in this encounter
--- OUTSIDE RECORDS SUMMARY | 2024-05-23 03:31 | XMS_ITS | Encounter Summary ---
Author Organization [facility] Address [address] [place] [address] Care Team Providers Care Cnc Machinist 2Nd Shift Name Role Phone Pepe Martel MD Primary Care Provider [phone] Encounter Details Date Type Department Care Team (Latest Contact Info) Description 08/20/2016 Hospital Outpatient Visit [facility] [address] [facility] [place] [address] Fortino Rocha MD [address] [employer], [place] [id number] Discharge Disposition: Home or Self Care Social History Tobacco Use Types Packs/Day Years Used Date Smoking Tobacco: Every Day Cigarettes Sex and Gender Information Value Date Recorded Sex Assigned at Not on file Gender Identity Male 02/15/2021 7:04 AM CDT Sexual Orientation Not on file documented as of this encounter Plan of Treatment Not on file documented as of this encounter Procedures Procedure Name Priority Date/Time Associated Diagnosis Comments XR HAND LEFT 3VW OR MORE Routine 08/20/2016 11:51 AM CDT documented in this encounter Results * XR HAND LEFT 3VW OR MORE [...] . Fortino Rocha MD DIAGNOSTIC IMAGING O RDERABLES documented in this encounter Visit Diagnoses Diagnosis Other injury of unspecified body region documented in this encounter Care Teams Cnc Machinist 2Nd Shift Relationship Specialty Start Date End Date Pepe Martel MD [address] [facility] [address] [place] [address] PCP - General 08/14/16 documented as of this encounter
--- OUTSIDE RECORDS SUMMARY | 2024-05-23 03:31 | XMS_ITS | Encounter Summary ---
Author Organization [facility] Healthcare Address [address] [place] [address] Care Team Providers Care Lobbyist Name Role Phone Unavailable Primary Care Provider Luther e Encounter Details Date Type Department Care Team (Late st Contact Info) Description 04/26/2021 11:45 AM [facility] Lab [address] [address] Social History Tobacco Use Types Packs/Day Years Used Date Smoking Tobacco: Never Assessed Sex and Gender Information Value Date Recorded Sex Assigned at Not on file Legal Sex Male 7:30 PM RCIS Gender Identity Not on file Sexual Orientation Not on file documented as of this encounter Plan of Treatment Not on file documented as of this encounter Procedures Procedure Name Priority Date/Time Associated Diagnosis Comments EGFR Routine 04/25/2021 9:20 AM [facility]IS DIFFERENTIAL AUTO Routine 04/25/2021 9:2 0 AM RCIS PROCALCITONIN Routine 04/25/2021 9:20 AM [facility]IS COMPREHENSIVE METABOIC PANEL, SERUM Routine 04/25/2021 9:20 AM [facility] URINALYSIS AND REFLEX TO MICROSCOPIC AND CULTURE Routine 04/25/2021 9:20 AM RCIS CBC WITH AUTO DIFFERENTIAL Routine 04/25/2021 9:20 AM [facility]IS URINALYSIS, MICROSCOPIC ONLY Routine 04/25/2021 9:20 AM RCIS documented in this encounter Results * eGFR (04/25/2021 9:20 AM RCIS) eGFR >90 90 - 130 mL/min/1.7 3 m2 [facility] Comment: Interpretive Data Reference Interval Normal ?>/= 90 mL/min/1.73m2 Mildly decreased* ? 60 - 89 mL/min/1.73m2 Mildly to moderately decreased ?45 - 59 mL/min/1.73m2 Moderately to severely decreased ??30 - 44 mL/min/1.73m2 Severely decreased ?15 - 29 mL/min/1.73m2 Kidney Failure ?< 15 ??mL/min/1.73m2 *Relative to young adult level Estimated glomerular filtration rate is determined by the CKD-EPI equation recommended by the National Kidney Foundation (KDIGO 2012 Clinical Practice Guideline for the Evaluation and Management of Chronic Kidney Disease. Kidney Intnl Suppl May 2012;3:1). The CKD-EPI equation should not be used for patients with unstable renal function and has not been validated in children and those over 70. Current interpretive data was last reviewed 2020 Blood 04/25/2021 9:20 AM RCIS 04/26/2021 11:50 AM RCIS us Notinfile Unknown LAB BLOOD ORDERABLES Final Res ult [facility] [place] [address] * (ABNORMAL) Urinalysis, microscopic only (04/25/2021 9:20 AM RCIS) [facility] WBC, ur 0-5 0 - 5 /HPF [facility] RBC, ur 0-2 0 - 2 /HPF [facility] Bacteria, ur Trace(A) [facility] Mucous, ur Present(A) [facility] Uric acid crystals, ur 2+(A) [facility] Granular casts, ur 11-20(A) 0 - 0 /LPF [facility] Culture Reflex Comment Reflex conditions for urine culture (WBC >10) not met. [facility] Urine 04/25/2021 9:20 AM RCIS 04/26/2021 11:45 AM RCIS us Notinfile Unknown LAB URINE ORDERABLES Final Res ult [facility] [place] [address] * (ABNORMAL) Differential, auto (04/25/2021 9:20 AM RCIS) Neutrophil abs 6.4 1.7 - 6.5 K/cumm [facility] Imm gran abs 0.0 0.0 - 0.1 K/cumm [facility] Lymphocyte abs 1.3 0.8 - 3.3 K/cumm [facility] Monocyte abs 1.3(H) 0.2 - 0.8 K/cumm [facility] Eosinophil abs 0.5 0.0 - 0.5 K/cumm [facility] Basophil abs 0.0 0.0 - 0.1 K/cumm [facility] Neutrophil pct 67.7 % [facility] Comment: Interpretive Data Percent cell count reference ranges are not reported, since discordance with absolute values may lead to misinterpretation of CBC data. Current Interpretive Data was last revised on 2017. Imm gran pct 0.4 % [facility] Comment: Interpretive Data Percent cell count reference ranges are not reported, since discordance with absolute values may lead to misinterpretation of CBC data. Current Interpretive Data was last revised on 2017. Lymphocyte pct 13.2 % [facility] Comment: Interpretive Data Percent cell count reference ranges are not reported, since discordance with absolute values may lead to misinterpretation of CBC data. Current Interpretive Data was last revised on 2017. Monocyte pct 13.5 % [facility] Comment: Interpretive Data Percent cell count reference ranges are not reported, since discordance with absolute values may lead to misinterpretation of CBC data. Current Interpretive Data was last revised on 2017. Eosinophil pct 4.8 % [facility] Comment: Interpretive Data Percent cell count reference ranges are not reported, since discordance with absolute values may lead to misinterpretation of CBC data. Current Interpretive Data was last revised on 2017. Basophil pct 0.4 % [facility] Comment: Interpretive Data Percent cell count reference ranges are not reported, since discordance with absolute values may lead to misinterpretation of CBC data. Current Interpretive Data was last revised on 2017. Blood 04/25/2021 9:20 AM [facility]IS 04/26/2021 11:39 AM RCIS us Notinfile Unknown LAB BLOOD ORDERABLES Final Res ult [facility] [place] [address] * (ABNORMAL) Urinalysis reflex to microscopic and culture Urine (04/25/2021 9:20 AM RCIS) Color, ur Yellow Yellow [facility] Clarity, ur Clear Clear [facility] Specific gravity, ur 1.032(H) 1.003 - 1.030 [facility] pH, urine 6 [facility] Protein, ur ql 2+(A) Negative [facility] Glucose, ur ql Negative Negative [facility] Ketones, ur Trace Negative [facility] Bilirubin, ur Negative Negative [facility] Blood, ur 2+(A) Negative [facility] Urobilinogen, ur <2.0 <2.0 mg/dL [facility] Nitrite, ur Negative Negative [facility] Leukocyte esterase, ur Negative Negative [facility] UA reflex comment Reflex to microscopic UA will be performed. [facility] Urine 04/25/2021 9:20 AM RCIS 04/26/2021 11:40 AM [facility] Narrative [facility] - 04/26/2021 11:55 AM RCIS ?? Urine pH is affected by diet, medications, systemic acid-base disturbances, and renal tubular function. ??pH may affect urinary stone formation. ??For example, urine pH below 6.0 may help reduce the tendency for calcium phosphate stones and pH greater than 6.0 may reduce the tendency for uric acid stone formation. Source: [facility] [employer]. Last revised 05-27-2017 Notinfile Unknown LAB MICROBIOLOGY - GENERAL ORD ERABLES Final Result Performing Organization Address City/[facility]/ZIP Co de Phone Number [facility] [place] [address] * Procalcitonin (04/25/2021 9:20 AM RCIS) Procalcitonin <0.10 <=0.15 ng/mL [facility] Comment: Test Performed by: [facility] [address] [place] [address] Economic Research Assistant: Kyle Fields M.D. Ph.D.; CLIA# [id number] Blood 04/25/2021 9:20 AM RCIS 04/26/2021 11:40 AM RCIS Notinfile Unknown LAB BLOOD ORDERABLES Final Res ult Performing Organization Address [facility] Co de Phone Number [facility] [place] [address] * (ABNORMAL) Comprehensive metabolic panel, serum (04/25/2021 9:20 AM RCIS) Sodium 137 135 - 145 mmol/L [facility] Potassium, sr 5.8(H) 3.6 - 5.2 mmol/L [facility] Chloride 102 97 - 110 mmol/L [facility] CO2 23 22 - 32 mmol/L [facility] Anion gap 12 2 - 15 mmol/L [facility] BUN 29(H) 8 - 25 mg/dL [facility] Creatinine 0.91 0.80 - 1.30 mg/dL [facility] Glucose 102 70 - 199 mg/dL [facility] Comment: Interpretive Data Fasting glucose >/= [...] interpretive data was last revised 2017. Calcium 10.1 8.5 - 10.3 mg/dL [facility] Bilirubin, total 0.2 0.1 - 1.2 mg/dL [facility] Protein, sr 7.8 6.2 - 8.2 g/dL [facility] Albumin 4.0 3.5 - 5.0 g/dL [facility] Alk phos 79 40 - 130 Units/L [facility] ALT 25 7 - 55 Units/L [facility] AST 29 10 - 50 Units/L [facility] Blood 04/25/2021 9:20 AM RCIS 04/26/2021 11:40 AM RCIS us Notinfile Unknown LAB BLOOD ORDERABLES Final Res ult [facility] [place] [address] * (ABNORMAL) CBC with auto differential (04/25/2021 9:20 AM RCIS) WBC 9.5 3.8 - 9.9 K/cumm [facility] Hgb 10.9(L) 13.0 - 17.5 g/dL [facility] Hct 34.4(L) 38.9 - 50.3 % [facility] Plt 415(H) 150 - 400 K/cumm [facility] MPV 10.4 9.1 - 12.3 fL [facility] RBC 3.92(L) 4.30 - 5.80 M/cumm [facility] MCV 87.8 81.3 - 96.4 fL [facility] MCH 27.8 27.1 - 33.3 pg [facility] MCHC 31.7(L) 32.3 - 35.7 g/dL [facility] RDW CV 13.9 11.1 - 14.9 % [facility] RDW SD 44.7 35.7 - 48.1 fL [facility] NRBC abs 0.00 0.00 - 0.01 K/cumm [facility] Blood 04/25/2021 9:20 AM RCIS 04/26/2021 11:39 AM RCIS us Notinfile Unknown LAB BLOOD ORDERABLES Final Res ult [facility] [place] [address] documented in this encounter Visit Diagnoses Not on filedocumented in this encounter
--- OUTSIDE RECORDS SUMMARY | 2024-05-23 03:31 | XMS_ITS | Encounter Summary ---
Author Organization [facility] Healthcare Address [address] [place] [address] Care Team Providers Care Regional Safety Manager Name Role Phone No, Physician Primary Care Provider [phone] Encounter Details Date Type Department Care Team (Latest Contact Info) Description 11/11/2021 4:00 AM CDT - 11/11/2021 11:59 PM CDT Hospital Encounter [address] [address] Discharge Disposition: Discharge to home or self care Social History Tobacco Use Types Packs/Day Years Used Date Smoking Tobacco: Never Assessed Sex and Gender Information Value Date Recorded Sex Assigned at Not on file Legal Sex Male 7:30 PM 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 VISUAL TECHNICIAN Gender Identity Not on file Sexual Orientation Not on file documented as of this encounter Discharge Disposition Disposition Code Departure Means Destination Discharge to home or self care documented in this encounter Plan of Treatment Not on file documented as of this encounter Procedures Procedure Name Priority Date/Time Associated Diagnosis Comments VANCOMYCIN LEVEL TROUGH STAT 11/11/2021 6:51 AM CDT documented in this encounter Results * (ABNORMAL) Vancomycin level trough Ordered by Notinfile Unknown (11/11/2021 6:51 AM CDT) Vancomycin trough 21.0(H) 10.0 - 20.0 mcg/mL [facility] Blood 11/11/2021 6:51 AM CDT 11/11/2021 7:50 AM CDT us Notinfile Unknown LAB BLOOD ORDERABLES Final Res ult [facility] Department [place] [address] documented in this encounter Visit Diagnoses Not on filedocumented in this encounter Care Teams Regional Safety Manager Relationship Specialty Start Date End Date No, Physician PCP - General 11/08/21 documented as of this encounter
--- OUTSIDE RECORDS SUMMARY | 2024-05-23 03:31 | XMS_ITS | Encounter Summary ---
Author Organization [facility] Healthcare Address [address] [place] [address] Care Team Providers Care Synoptic Meteorologist Name Role Phone Unavailable Primary Care Provider Luther e Encounter Details Date Type Department Care Team (Late st Contact Info) Description 04/11/2021 6:15 AM POLE CLIMBER Lab [address] [address] Social History Tobacco Use Types Packs/Day Years Used Date Smoking Tobacco: Never Assessed Sex and Gender Information Value Date Recorded Sex Assigned at Not on file Legal Sex Male 7:30 PM POLE CLIMBER Gender Identity Not on file Sexual Orientation Not on file documented as of this encounter Plan of Treatment Not on file documented as of this encounter Procedures Procedure Name Priority Date/Time Associated Diagnosis Comments VANCOMYCIN LEVEL TROUGH Routine 04/11/2021 3:30 AM POLE CLIMBER documented in this encounter Results * Vancomycin level trough (04/11/2021 3:30 AM POLE CLIMBER) Vancomycin trough 13.2 10.0 - 20.0 mcg/mL [facility] MERRILL Blood 04/11/2021 3:30 AM POLE CLIMBER 04/11/2021 6:13 AM POLE CLIMBER us Notinfile Unknown LAB BLOOD ORDERABLES Final Res ult [facility] HERNADE[facility] Department [place] [address] documented in this encounter Visit Diagnoses Not on filedocumented in this encounter
--- OUTSIDE RECORDS SUMMARY | 2024-05-23 03:31 | XMS_ITS | Encounter Summary ---
Author Organization [facility] Healthcare Address [address] [place] [address] Care Team Providers Care Technical Information Specialist Name Role Phone No, Physician Primary Care Provider [phone] Encounter Details Date Type Department Care Team (Latest Contact Info) Description 11/17/2021 3:40 AM CDT - 11/17/2021 11:59 PM CDT Hospital Encounter [address] [address] Discharge Disposition: Discharge to home or self care Social History Tobacco Use Types Packs/Day Years Used Date Smoking Tobacco: Never Assessed Sex and Gender Information Value Date Recorded Sex Assigned at Not on file 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 Gender Identity Not on file Sexual Orientation Not on file documented as of this encounter Discharge Disposition Disposition Code Departure Means Destination Discharge to home or self care documented in this encounter Plan of Treatment Not on file documented as of this encounter Procedures Procedure Name Priority Date/Time Associated Diagnosis Comments EGFR STAT 11/17/2021 3:40 AM CDT DIFFERENTIAL AUTO STAT 11/17/2021 3:4 0 AM CDT COMPREHENSIVE METABOIC PANEL, SERUM STAT 11/17/2021 3:40 AM CDT CBC WITH AUTO DIFFERENTIAL STAT 11/17/2021 3:40 AM CDT documented in this encounter Results * eGFR (11/17/2021 3:40 AM CDT) eGFR >90 90 - 130 mL/min/1. 73 m2 [facility] Comment: Interpretive Data Reference Interval Normal [...] of Race in Diagnosing Kidney Disease, JASN 2020). The CKD-EPI equation should not be used for patients with unstable renal function and has not been validated in children and those over 70. Current interpretive data was last reviewed 2021. Blood 11/17/2021 3:40 AM CDT 11/17/2021 7:52 AM CDT us Vinicio Quintanilla MD LAB BLOOD ORDERABLE S Final Result [facility] [place] [address] * Differential, auto (11/17/2021 3:40 AM CDT) Neutrophil abs 5.7 1.7 - 6.5 K/cumm [facility] Imm gran abs 0.0 0.0 - 0.1 K/cumm [facility] Lymphocyte abs 2.3 0.8 - 3.3 K/cumm [facility] Monocyte abs 0.7 0.2 - 0.8 K/cumm [facility] Eosinophil abs 0.2 0.0 - 0.5 K/cumm [facility] Basophil abs 0.0 0.0 - 0.1 K/cumm [facility] Neutrophil pct 63.1 % [facility] Comment: Interpretive Data Percent cell count reference ranges are not reported, since discordance with absolute values may lead to misinterpretation of CBC data. Current Interpretive Data was last revised on 2017. Imm gran pct 0.3 % [facility] Comment: Interpretive Data Percent cell count reference ranges are not reported, since discordance with absolute values may lead to misinterpretation of CBC data. Current Interpretive Data was last revised on 2017. Lymphocyte pct 25.6 % [facility] Comment: Interpretive Data Percent cell count reference ranges are not reported, since discordance with absolute values may lead to misinterpretation of CBC data. Current Interpretive Data was last revised on 2017. Monocyte pct 8.2 % [facility] Comment: Interpretive Data Percent cell count reference ranges are not reported, since discordance with absolute values may lead to misinterpretation of CBC data. Current Interpretive Data was last revised on 2017. Eosinophil pct 2.4 % [facility] Comment: Interpretive Data Percent cell count reference ranges are not reported, since discordance with absolute values may lead to misinterpretation of CBC data. Current Interpretive Data was last revised on 2017. Basophil pct 0.4 % [facility] Comment: Interpretive Data Percent cell count reference ranges are not reported, since discordance with absolute values may lead to misinterpretation of CBC data. Current Interpretive Data was last revised on 2017. Blood 11/17/2021 3:40 AM CDT 11/17/2021 6:52 AM CDT us Vinicio Quintanilla MD LAB BLOOD ORDERABLE S Final Result [facility] [place] [address] * (ABNORMAL) CBC with auto differential (11/17/2021 3:40 AM CDT) WBC 9.0 3.8 - 9.9 K/cumm [facility] Hgb 10.3(L) 13.0 - 17.5 g/dL [facility] Hct 32.9(L) 38.9 - 50.3 % [facility] Plt 447(H) 150 - 400 K/cumm [facility] MPV 9.7 9.1 - 12.3 fL [facility] RBC 3.88(L) 4.30 - 5.80 M/cumm [facility] MCV 84.8 81.3 - 96.4 fL [facility] MCH 26.5(L) 27.1 - 33.3 pg [facility] MCHC 31.3(L) 32.3 - 35.7 g/dL [facility] RDW CV 13.4 11.1 - 14.9 % [facility] RDW SD 41.4 35.7 - 48.1 fL [facility] NRBC abs 0.00 0.00 - 0.01 K/cumm [facility] Blood 11/17/2021 3:40 AM CDT 11/17/2021 6:52 AM CDT us Vinicio Herminio Quintanilla MD LAB BLOOD ORDERABLE S Final Result [facility] [place] [address] * (ABNORMAL) Comprehensive metabolic panel, serum (11/17/2021 3:40 AM CDT) Sodium 138 135 - 145 mmol/L [facility] Potassium, sr 5.0 3.6 - 5.2 mmol/L [facility] Chloride 101 97 - 110 mmol/L [facility] CO2 27 22 - 32 mmol/L [facility] Anion gap 10 2 - 15 mmol/L [facility] BUN 33(H) 8 - 25 mg/dL [facility] Creatinine 0.84 0.80 - 1.30 mg/dL [facility] Glucose 79 70 - 199 mg/dL [facility] Comment: Interpretive Data Fasting glucose >/= 126 [...] interpretive data was last revised 2017. Calcium 10.4(H) 8.5 - 10.3 mg/dL [facility] Bilirubin, total 0.2 0.1 - 1.2 mg/dL [facility] Protein, sr 7.2 6.2 - 8.2 g/dL [facility] Albumin 3.5 3.5 - 5.0 g/dL [facility] Alk phos 133(H) 40 - 130 Units/L [facility] ALT 42 7 - 55 Units/L [facility] AST 28 10 - 50 Units/L [facility] Blood 11/17/2021 3:40 AM CDT 11/17/2021 6:52 AM CDT us Vinicio Herminio Quintanilla MD LAB BLOOD ORDERABLE S Final Result [facility] Department [place] [address] documented in this encounter Visit Diagnoses Not on filedocumented in this encounter Care Teams Technical Information Specialist Relationship Specialty Start Date End Date No, Physician PCP - General 11/08/21 documented as of this encounter
--- OUTSIDE RECORDS SUMMARY | 2024-05-23 03:31 | XMS_ITS | Encounter Summary ---
Author Organization [facility] Healthcare Address [address] [place] [address] Care Team Providers Care Tool Maker Apprentice Name Role Phone Unavailable Primary Care Provider Luther e Encounter Details Date Type Department Care Team (Late st Contact Info) Description 12/15/2013 7:10 PM CDT - 12/15/2013 9:25 PM CDT Hospital Encounter [facility] Veto Wells MD [address] [place] [address] Pain in thoracic spine; Essential hypertension Social History Tobacco Use Types Packs/Day Years Used Date Smoking Tobacco: Never Assessed Sex and Gender Information Value Date Recorded Sex Assigned at Not on file 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 Gender Identity Not on file Sexual Orientation Not on file documented as of this encounter Last Filed Vital Signs Vital Sign Reading Time Taken Comments Blood Pressure 140/83 12/15/2013 7:12 PM CDT Pulse 88 12/15/2013 7:12 PM CDT Temperature 36.7 ??C (98 ??F) 12/15/2013 7:12 PM CDT Respiratory Rate - - Oxygen Saturation 98% 12/15/2013 7:12 PM CDT Inhaled Oxygen Concentration - - Weight 149.2 kg (328 lb 14.9 oz) 12/15/2013 7:12 PM CDT Height 170.2 cm (5' 7 ) 12/15/2013 7:12 PM CDT Body Mass Index 51.52 12/15/2013 7:12 PM CDT documented in this encounter Plan of Treatment Not on file documented as of this encounter Procedures Procedure Name Priority Date/Time Associated Diagnosis Comments XR CHEST PA LATERAL 2 VIEWS Routine 12/15/2013 12:00 AM CDT documented in this encounter Results * XR Chest Pa Lateral 2 Views (12/15/2013 12:00 AM CDT) Anatomical Region Laterality Modality Body, Chest N/A Radiographic Sera ging 12/15/2013 Impressions 12/15/2013 7:30 PM CDT ??No evidence of an acute cardiopulmonary abnormality. THIS IS AN ELECTRONICALLY VERIFIED REPORT 12/15/2013 7:26 PM: ??Shaw Chand M.D. Shaw Chand M.D. CH:[place] 07:26 PM 07:26 PM [facility] [EOD] Narrative 12/15/2013 7:30 PM CDT EXAMINATION: ??Two-view chest. HISTORY: ??Upper right back pain along the right inner scapular border. ??Chest pain. TECHNIQUE: ??PA and lateral chest. COMPARISON: ??08/02/2013. FINDINGS: ??Mild eventration medial right hemidiaphragm. ??The lungs are normally expanded and clear without focal consolidation. ??There is no pleural effusion or pneumothorax. ??Cardiomediastinal silhouette within normal limits. ?? No acute osseous abnormalities. Procedure Note Provider, MD Miguel Angel - 10/02/2020 EXAMINATION: Two-view chest. HISTORY: Upper right back pain along the right inner scapular border.Chest pain. TECHNIQUE: PA and lateral chest. COMPARISON: 08/02/2013. FINDINGS: Mild eventration medial right hemidiaphragm. The lungs are normally expanded and clear without focal consolidation. There is nopleural effusion or pneumothorax. Cardiomediastinal silhouette within normallimits. No acute osseous abnormalities. IMPRESSION: No evidence of an acute cardiopulmonary abnormality. THIS IS AN ELECTRONICALLY VERIFIED REPORT 12/15/2013 7:26 PM: Shaw Chand M.D. Shaw Chand M.D. CH:[place] 07:26 PM 07:26 PM [facility] [EOD] Porfirio MORIN IMG XR PROCEDURES Fin al Result documented in this encounter Visit Diagnoses Diagnosis Pain in thoracic spine Essential hypertension Unspecified essential hypertension documented in this encounter
--- OUTSIDE RECORDS SUMMARY | 2024-05-23 03:31 | XMS_ITS | Encounter Summary ---
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 Gender Identity Not on file Sexual Orientation Not on file documented as of this encounter Discharge Disposition Disposition Code Departure Means Destination Discharge to home or self care documented in this encounter Plan of Treatment Not on file documented as of this encounter Procedures Procedure Name Priority Date/Time Associated Diagnosis Comments AEROBIC CULTURE AND GRAM STAIN Routine 11/08/2021 12:20 PM CDT documented in this encounter Results * Aerobic culture and gram stain Sputum (11/08/2021 12:20 PM CDT) Direct Specimen Exam Stain: Abundant squamous epithelial cells seen indicating excessive oropharyngeal contamination. ??Culture will not be processed further. ??Please submit another specimen. Smear results called to and read back by: Cesia Wagoner RN [phone] on 11/09/2021 11:02:54 by: Jolly LEVIN [facility] Report Final Report: This is the final report. POONAM HERNADEZ Sputum 11/08/2021 12:2 0 PM CDT 11/09/2021 7:46 AM CDT Narrative POONAM HERNADEZ - 11/10/2021 9:10 AM CDT Testing performed by [facility] ([phone]) Specimens submitted from normally sterile body sites will have all bacterial morphotypes identified. ??Specimens that contain grossly mixed zi and/or are from body sites that are not normally sterile will be examined for Staphylococcus aureus, Pseudomonas aeruginosa, beta-hemolytic strep, vancomycin-resistant Enterococcus and fungus. ??If any of these are isolated, the organism will be reported. Current interpretive data was last revised on 2016. us Notinfile Unknown LAB MICROBIOLOGY - GENERAL ORD ERABLES Final Result POONAM [facility] [place] [address] documented in this encounter Visit Diagnoses Not on filedocumented in this encounter Care Teams [employer] Lieutenant Relationship Specialty Start Date End Date No, Physician PCP - General 11/08/21 documented as of this encounter
--- OUTSIDE RECORDS SUMMARY | 2024-05-23 03:31 | XMS_ITS | Encounter Summary ---
Author Organization [facility] Healthcare Address [address] [place] [address] Care Team Providers Care Academic Computing Director Name Role Phone Unavailable Primary Care Provider Luther e Encounter Details Date Type Department Care Team (Latest Contact Info) Description 10/10/2016 1:21 PM CDT - 10/10/2016 3:45 PM CDT Hospital Encounter [facility] [place] [address] [facility] [address] [place] [address] Pain in left knee Social History Tobacco Use Types Packs/Day Years Used Date Smoking Tobacco: Never Assessed Sex and Gender Information Value Date Recorded Sex Assigned at Not on file 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 Gender Identity Not on file Sexual Orientation Not on file documented as of this encounter Last Filed Vital Signs Vital Sign Reading Time Taken Comments Blood Pressure 123/75 10/10/2016 1:22 PM CDT Pulse 88 10/10/2016 1:22 PM CDT Temperature 36.7 ??C (98 ??F) 10/10/2016 1:22 PM CDT Respiratory Rate - - Oxygen Saturation 100% 10/10/2016 1:22 PM CDT Inhaled Oxygen Concentration - - Weight - - Height - - Body Mass Index - - documented in this encounter Plan of Treatment Not on file documented as of this encounter Procedures Procedure Name Priority Date/Time Associated Diagnosis Comments XR KNEE LEFT 3 VIEWS Routine 10/10/2016 12:00 AM CDT documented in this encounter Results * XR Knee Left 3 Views (10/10/2016 12:00 AM CDT) Anatomical Region Laterality Modality Lower Extremities, Knee Left Radiogra phic Imaging 10/10/2016 Impressions 10/10/2016 3:02 PM CDT 1. ??No definite evidence of acute displaced fracture or dislocation involving the left knee. 2. ??Cortical irregularity noted involving the medial femoral condyle, which may represent a small osteochondral defect versus bony contusion from ligamentous injury. ??Further evaluation with MRI is recommended as clinically indicated. 3. ??Small suprapatellar joint effusion. THIS IS AN ELECTRONICALLY VERIFIED REPORT 10/10/2016 2:58 PM: ??Deven Salomon D.O. ?? Deven Salomon D.O. PS:ps 02:58 PM 02:58 PM [facility] [EOD] Narrative 10/10/2016 3:02 PM CDT EXAMINATION: ??Left knee radiographs HISTORY: Anterior knee pain after fall down slope on Wednesday. ??Patient's leg bent backwards. COMPARISON: None TECHNIQUE: 3 radiographs of the left knee were obtained with frontal, lateral, and sunrise projections. FINDINGS: There is no definite evidence of acute fracture or dislocation involving the left knee. ??There is mild cortical irregularity noted involving the medial femoral condyle. ??There is a small suprapatellar joint effusion. Procedure Note Provider, MD Miguel Angel - 10/02/2020 EXAMINATION: Left knee radiographs HISTORY: Anterior knee pain after fall down slope on Wednesday. Patient'sleg bent backwards. COMPARISON: None TECHNIQUE: 3 radiographs of the left knee were obtained with frontal,lateral, and sunrise projections. FINDINGS: There is no definite evidence of acute fracture or dislocation involvingthe left knee. There is mild cortical irregularity noted involving the medial femoral condyle. There is a small suprapatellar joint effusion. IMPRESSION: 1. No definite evidence of acute displaced fracture or dislocationinvolving the left knee. 2. Cortical irregularity noted involving the medial femoral condyle,which may represent a small osteochondral defect versus bony contusion from ligamentous injury. Further evaluation with MRI is recommended asclinically indicated. 3. Small suprapatellar joint effusion. THIS IS AN ELECTRONICALLY VERIFIED REPORT 10/10/2016 2:58 PM: Deven Salomon D.O. Deven Salomon D.O. PS:ps 02:58 PM 02:58 PM [facility] [EOD] us Maria Elena MORIN IMG XR PROCEDURES Final Resul t documented in this encounter Visit Diagnoses Diagnosis Pain in left knee documented in this encounter
--- OUTSIDE RECORDS SUMMARY | 2024-05-23 03:31 | XMS_ITS | Encounter Summary ---
Author Organization [facility] Healthcare Address [address] [place] [address] Care Team Providers Care Apartment Coordinator Name Role Phone No, Physician Primary Care Provider [phone] Reason for Visit * Reason Comments G-tube Issues Encounter Details Date Type Department Care Team (Late st Contact Info) Description 01/31/2022 11:25 PM CDT - 02/01/2022 9:44 AM CDT Emergency [address] [address] Lorne Zimmer, [address] [place] [address] [place] [address] Dislodged gastrostomy tube (Primary Dx) Discharge Disposition: Discharge to SNF Social History Tobacco Use Types Packs/Day Years Used Date Smoking Tobacco: Never Assessed Sex and Gender Information Value Date Recorded Sex Assigned at Not on file Legal Sex Male 7:30 PM SERVICE DESK DIRECTOR Gender Identity Not on file Sexual Orientation [...] 7.4 oz) 01/31/2022 11:33 PM CDT Height - - Body Mass Index 34.53 06/01/2016 4:44 AM SERVICE DESK DIRECTOR documented in this encounter Discharge Instructions * Discharge Instructions* Lorne Zimmer DO - 02/01/2022 1:34 AM CDT You may resume use of G-tube. * Attachments The following attachments cannot be sent through Care Everywhere. * How to Use and Care for Your PEG Tube (AfterCare(R) Instructions(ER/ED)) (Arabic) documented in this encounter Discharge Disposition Disposition Code Departure Means Destination Discharge to SNF documented in this encounter ED Notes * Lester Balderas RN - 02/01/2022 9:42 AM CDT Report given to [facility] [facility] crew. No further questions at this time. PT VS stable at transfer of care Lester Balderas RN 02/01/22 0943 * Lester Balderas RN - 02/01/2022 8:55 AM CDT Tommy Contacted for an update on ETA. Crew expected to arrive 0915 Lester Balderas RN 02/01/22 0856 * Lester Badleras RN - 02/01/2022 7:56 AM CDT [facility] ETA [id number] Lester Balderas RN 02/01/22 0757 * Lester Balderas RN - 02/01/2022 7:17 AM CDT Patient resting in stretcher at this time. Patient remains at baseline orientation A&Ox0. Patient secretions suctioned and remains stable on room air. Awaiting transport back to home facility at this time. Lester Balderas RN 02/01/22 0719 * Fide Molina RN - 02/01/2022 1:50 AM CDT Washer Operator called [facility] and updated Pat on patient discharge and transportation being setup. Fide Molina, RN 02/01/22 0200 * Lorne Zimmer DO - 01/31/2022 11:42 PM CDT HPI Chief Complaint Patient presents with G-tube Issues HPI 11:42 PM Jaime Tyler is a 36 y.o. male presenting to the ED with nursing staff noted G-tube came out. Patient has history of anoxic brain injury from half-way. He is unable to provide any reliable history. Patient History: Past Medical History: Diagnosis Date History of anoxic brain injury Hypertension Past Surgical History: Procedure Laterality Date ENTERIC TUBE INJECTION N/A 02/01/2022 History reviewed. No pertinent family history. Social History Tobacco Use Smoking status: None Smokeless tobacco: None Substance and Sexual Activity Drug use: None Sexual activity: None Alcohol Use: Not on file No current facility-administered medications for this encounter. No current outpatient medications on file. Review of Systems Review of Systems Unable to perform ROS: Patient nonverbal Physical Exam ED Triage Vitals [01/31/22 2333] Temp Pulse Resp BP SpO2 37.2 ??C (99 ??F) 89 20 142/81 96 % Temp src Heart Rate Source Patient Position BP Location FiO2 (%) Axillary -- -- -- -- Height Height Method Weight Weight Method -- -- 100 kg (220 lb 7.4 oz) EMS stretcher scale Physical Exam Vitals and nursing note reviewed. Constitutional: General: He is not in acute distress. Appearance: Normal appearance. He is obese. HENT: Head: Normocephalic and atraumatic. Nose: Nose normal. Mouth/Throat: Mouth: Mucous membranes are moist. Eyes: Pupils: Pupils are equal, round, and reactive to light. Cardiovascular: Rate and Rhythm: Normal rate and regular rhythm. Heart sounds: Normal heart sounds. Pulmonary: Effort: Pulmonary effort is normal. Breath sounds: Normal breath sounds. Abdominal: Palpations: Abdomen is soft. Tenderness: There is no abdominal tenderness. Musculoskeletal: General: No swelling. Cervical back: Neck supple. Comments: Contractures all 4 extremities Heel protectors Skin: General: Skin is warm and dry. Neurological: Mental Status: He is alert. Mental status is at baseline. Comments: Nonverbal Psychiatric: Mood and Affect: Mood normal. Behavior: Behavior normal. Procedures MDM Labs Reviewed - No data to display XR Abdomen Gastro Tube Placement Check Final Result BP 136/88 Pulse 96 Temp 37.2 ??C (99 ??F) (Axillary) Resp 20 Wt 100 kg (220 lb 7.4 oz) SpO2 98% BMI 34.53 kg/m?? MDM Amount and/or Complexity of Data Reviewed Tests in the radiology section of CPT??: reviewed ED Course as of 02/01/22133 Time: 02/02 132 Comment: Skin cleansed with ChloraPrep and using sterile procedure 18 Turkish G- tube was placed without difficulty. 10 mL of normal saline placed in balloon. X- ray shows intraluminal contents. Stable for discharge back to facility. By: Lorne Zimmer DO This examination was transcribed using the [employer] voice recognition system without human laborer chemical processing. In an effort to expedite patient care, this report has not been adjusted for typographical, grammatical, and syntax by a trained director of medical review. Clinical Impression: Dislodged gastrostomy tube Lorne Zimmer DO 02/01/22133 * Luz Villasenor RN - 01/31/2022 11:26 PM CDT Brought in by EMS from [facility] after pt's G tube was accidentally pulled out. Pt has hx of anoxic brain injury and is at baseline nonverbal and A&Ox0. Pt saturated in urine upon arrival documented in this encounter Plan of Treatment Not on file documented as of this encounter Procedures Procedure Name Priority Date/Time Associated Diagnosis Comments XR ABDOMEN GASTRO TUBE PLACEMENT CHECK ED 02/01/2022 12:45 AM CDT documented in this encounter Results * XR Abdomen Gastro Tube Placement Check (02/01/2022 12:45 AM CDT) Anatomical Region Laterality Modality Body N/A Computed Radiogr aphy 02/01/2022 1:18 AM CDT Narrative 02/01/2022 1:19 AM CDT EXAM DESCRIPTION: ?? XR ABDOMEN GASTRO TUBE PLACEMENT CHECK REASON FOR STUDY: ?? g-tube replacement ?? pt's G tube was accidentally pulled out. Pt has hx of anoxic brain injury and is at baseline nonverbal and A G tube replaced today, please check placement ?? TECHNIQUE: Single radiographic view of the abdomen acquired. COMPARISON: ?? 02/01/2022 FINDINGS: Oral contrast is seen in the stomach duodenum and duodenum status post administration via percutaneous gastrostomy tube. No definite extraluminal extravasation of contrast. IMPRESSION: ?? Oral contrast is seen in the stomach duodenum and duodenum status post administration via percutaneous gastrostomy tube. ??No definite extraluminal extravasation of contrast. THIS IS AN ELECTRONICALLY VERIFIED FINAL REPORT 02/01/2022 1:19 AM - Electronically signed by ??Anshul Chapman M.D. BB D: ??02/01/2022 1:19 AM T: Report ID: [id number] Reading Location: ??[id number] Procedure Note Anshul Chapman MD PhD - 02/01/2022 EXAM DESCRIPTION: XR ABDOMEN GASTRO TUBE PLACEMENT CHECK REASON FOR STUDY: g-tube replacement pt's G tube was accidentally pulled out. Pt has hx of anoxic brain injuryand is at baseline nonverbal and A G tube replaced today, please checkplacement TECHNIQUE: Single radiographic view of the abdomen acquired. COMPARISON: 02/01/2022 FINDINGS: Oral contrast is seen in the stomach duodenum and duodenumstatus post administration via percutaneous gastrostomy tube. No definite extraluminal extravasation of contrast. IMPRESSION: Oral contrast is seen in the stomach duodenum and duodenum status post administration via percutaneous gastrostomy tube. No definite extraluminal extravasation of contrast. THIS IS AN ELECTRONICALLY VERIFIED FINAL REPORT 02/01/2022 1:19 AM - Electronically signed by Anshul Chapman M.D. BB T: Report ID: [id number] Reading Location: [place] [address] Lorne Zimmer DO IMG XR PROCEDURES Final Res ult documented in this encounter Visit Diagnoses Diagnosis Dislodged gastrostomy tube- Primary documented in this encounter Active and Recently Administered Medications Times are shown in CDT. PRN Medication Order 01/30/2022 01/31/2022 02/01/2022 diatrizoate meglumine-diatrizoate sodium (GASTROGRAFIN/-GASTROVIEW) 66-10 % solution 60 mL 60 mL, gastrostomy tube, Once in imaging, contrast, Starting on 02/01/22 at 0035, For 1 dose documented in this encounter Orders Medications Ordered That Rigoberto ht Not Have Been Administered Count Last Ordered Date First Ordered Date diatrizoate meglumine-diatri zoate sodium (GASTROGRAFIN/MD-GASTROVIEW) 66-10 % solution 60 mL 1 02/01/2022 documented in this encounter Care Teams Apartment Coordinator Relationship Specialty Start Date End Date No, Physician PCP - General 11/08/21 documented as of this encounter
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
--- OUTSIDE RECORDS SUMMARY | 2024-05-23 03:31 | XMS_ITS | Encounter Summary ---
Author Organization [facility] Address [address] [place] [address] Care Team Providers Care Treating Plant Supervisor Name Role Phone Pepe Martel MD Primary Care Provider [phone] Encounter Details Date Type Department Care Team (Latest Contact Info) Description 08/20/2016 Hospital [facility]ics [address] [facility] [place] [id number] Fortino Rocha MD [address] [place] [address] Discharge Disposition: Home or Self Care Social [...] on filedocumented in this encounter Care Teams Treating Plant Supervisor Relationship Specialty Start Date End Date Pepe Martel MD [address] [facility] [address] [place] [address] PCP - General 08/14/16 documented as of this encounter
--- OUTSIDE RECORDS SUMMARY | 2024-05-23 03:31 | XMS_ITS | Encounter Summary ---
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 Gender Identity Not on file Sexual Orientation Not on file documented as of this encounter Discharge Disposition Disposition Code Departure Means Destination Discharge to home or self care documented in this encounter Plan of Treatment Not on file documented as of this encounter Procedures Procedure Name Priority Date/Time Associated Diagnosis Comments URINALYSIS AND REFLEX TO MICROSCOPIC AND CULTURE Routine 11/08/2021 3:45 PM CDT URINALYSIS, MICROSCOPIC ONLY Routine 11/08/2021 3:45 PM CDT DIFFERENTIAL AUTO STAT 11/08/2021 3:0 0 AM CDT CBC WITH AUTO DIFFERENTIAL STAT 11/08/2021 3:00 AM CDT BLOOD CULTURE Routine 11/08/2021 3:00 AM CDT BLOOD CULTURE Routine 11/08/2021 3:00 AM CDT documented in this encounter Results * (ABNORMAL) Urinalysis, microscopic only (11/08/2021 3:45 PM CDT) WBC, ur 6-10(A) 0 - 5 /HPF [facility] RBC, ur 0-2 0 - 2 /HPF [facility] Epithelial cells, squamous, ur 11-20(A) 0 - 5 /HPF [facility] Comment:Suggestive of contam ination. Consider recollection by clean catch. Amorphous crystals, ur 1+(A) [facility] Hyaline casts, ur 1-5 0 - 10 /LPF [facility] Culture Reflex Comment Reflex conditions for urine culture (WBC >10) not met. [facility] Urine 11/08/2021 3:45 PM CDT 11/08/2021 5:30 PM CDT Braden Hernandez MD LAB URINE ORDERABL ES Final Result [facility] [place] [address] * (ABNORMAL) Urinalysis reflex to microscopic and culture Urine (11/08/2021 3:45 PM CDT) Color, ur Straw Yellow [facility] Clarity, ur Cloudy(A) Clear [facility] Specific gravity, ur 1.014 1.003 - 1.030 [facility] pH, urine 8.0 [facility] Protein, ur ql Trace Negative [facility] Glucose, ur ql Negative Negative [facility] Ketones, ur Negative Negative [facility] Bilirubin, ur Negative Negative [facility] Blood, ur Negative Negative [facility] Urobilinogen, ur <2.0 <2.0 mg/dL [facility] Nitrite, ur Negative Negative [facility] Leukocyte esterase, ur 1+(A) Negative [facility] UA reflex comment Reflex to microscopic UA will be performed. [facility] Urine 11/08/2021 3:45 PM CDT 11/08/2021 5:30 PM CDT Narrative [facility] - 11/08/2021 5:42 PM CDT ?? Urine pH is affected by diet, medications, systemic acid-base disturbances, and renal tubular function. ??pH may affect urinary stone formation. ??For example, urine pH below 6.0 may help reduce the tendency for calcium phosphate stones and pH greater than 6.0 may reduce the tendency for uric acid stone formation. Source: [facility] [employer]. Last revised 05-27-2017 Braden Hernandez MD LAB MICROBIOLOGY - GENERAL ORDERABLES Final Result [facility] Department [place] [address] * Blood culture Blood Hand, right (11/08/2021 3:00 AM CDT) Report Final Report: No growth [facility] Blood (Hand, right) 11/08/2021 3:00 AM CDT 11/08/2021 6:12 AM CDT Narrative [facility] - 11/12/2021 7:01 AM CDT 1. ?Blood cultures are incubated for 4 days on a continuously monitored blood culture system. The first report of a negative culture is issued within 24 hours of receipt of the specimen in the laboratory. 2. ?Positive culture results are reported as soon as they are detected. 3. ?The most important factor for detection of microbes in the setting of bloodstream infection is the volume of blood submitted for culture. Failure to collect an optimal blood volume can result in false negative blood cultures. For pediatric patients, the recommended blood volume to collect is 1 mL of blood per year of patient age (up to 20 mL) per blood culture set. For adult patients, 20 mL of blood, divided equally between aerobic and anaerobic blood culture bottles, is recommended for each blood culture set. 4. ?For blood cultures with Gram-positive cocci, a rapid molecular test for organism identification may be performed using the [employer] Gram-Positive Blood Culture Assay. This assay detects microbial DNA in positive blood culture broth via hybridization of target DNA to capture oligonucleotides on a microarray. This assay has been cleared by the [place] Food and Drug Administration and its performance characteristics have been verified by the [facility] Microbiology Laboratory. 5. ?For questions about this culture, contact the Microbiology Laboratory at [phone]. Interpretive data was last revised on 2019. Braden Hernandez MD LAB MICROBIOLOGY - GENERAL ORDERABLES Final Result [facility] Department [place] [address] * (ABNORMAL) Blood culture Blood Hand, left (11/08/2021 3:00 AM CDT) Direct Specimen Exam Molecular Analysis: Staphylococcus species detected by the [employer] Blood Culture Nucleic Acid Test. This is most suggestive of a coagulase negative Staphylococcus species. Please refer to final culture-based result for confirmation. This test does not exclude the possibility of a mixed bacterial infection. Notification of: Staphylococcus species called to and read back by: Nataliia Estrada RN [phone] ??on 11/09/2021 02:12 by: FAREED Sung [facility] Direct Specimen Exam Stain: Gram Positive Cocci in clusters Time to culture positivity (aerobic media): 15.8 hours Notification of: Gram Positive Cocci in clusters called to and read back by: Yajaira Estrada RN ([phone]) on 11/08/2021 22:40:59 by: HARJIT Drew [facility] Report Final Report: Staphylococcus hominis Single blood culture positive for this microorganism. ??Isolate is a possible contaminant. If a similar isolate is recovered from a second blood culture collected within 3 days of this culture, both will be evaluated and, if determined to be the same species, antimicrobial susceptibility testing will be performed. (.) [facility] Organism STAPHYLOCOCCUS HOMINIS [facility] Blood (Hand, left) 11/08/2021 3:00 AM CDT 11/08/2021 6:11 AM CDT Narrative [facility] - 11/13/2021 10:01 AM CDT 1. ?Blood cultures are incubated for 4 days on a continuously monitored blood culture system. The first report of a negative culture is issued within 24 hours of receipt of the specimen in the laboratory. 2. ?Positive culture results are reported as soon as they are detected. 3. ?The most important factor for detection of microbes in the setting of bloodstream infection is the volume of blood submitted for culture. Failure to collect an optimal blood volume can result in false negative blood cultures. For pediatric patients, the recommended blood volume to collect is 1 mL of blood per year of patient age (up to 20 mL) per blood culture set. For adult patients, 20 mL of blood, divided equally between aerobic and anaerobic blood culture bottles, is recommended for each blood culture set. 4. ?For blood cultures with Gram-positive cocci, a rapid molecular test for organism identification may be performed using the [employer] Gram-Positive Blood Culture Assay. This assay detects microbial DNA in positive blood culture broth via hybridization of target DNA to capture oligonucleotides on a microarray. This assay has been cleared by the [place] Food and Drug Administration and its performance characteristics have been verified by the [facility] Microbiology Laboratory. 5. ?For questions about this culture, contact the Microbiology Laboratory at [phone]. Interpretive data was last revised on 2019. Braden Hernandez MD LAB MICROBIOLOGY - GENERAL ORDERABLES Final Result [facility] Department [place] [address] * Differential, auto (11/08/2021 3:00 AM CDT) Neutrophil abs 5.9 1.7 - 6.5 K/cumm [facility] Imm gran abs 0.0 0.0 - 0.1 K/cumm [facility] Lymphocyte abs 1.0 0.8 - 3.3 K/cumm [facility] Monocyte abs 0.7 0.2 - 0.8 K/cumm [facility] Eosinophil abs 0.0 0.0 - 0.5 K/cumm [facility] Basophil abs 0.0 0.0 - 0.1 K/cumm [facility] Neutrophil pct 76.6 % [facility] Comment: Interpretive Data Percent cell count reference ranges are not reported, since discordance with absolute values may lead to misinterpretation of CBC data. Current Interpretive Data was last revised on 2017. Imm gran pct 0.3 % [facility] Comment: Interpretive Data Percent cell count reference ranges are not reported, since discordance with absolute values may lead to misinterpretation of CBC data. Current Interpretive Data was last revised on 2017. Lymphocyte pct 13.4 % [facility] Comment: Interpretive Data Percent cell count reference ranges are not reported, since discordance with absolute values may lead to misinterpretation of CBC data. Current Interpretive Data was last revised on 2017. Monocyte pct 8.9 % [facility] Comment: Interpretive Data Percent cell count reference ranges are not reported, since discordance with absolute values may lead to misinterpretation of CBC data. Current Interpretive Data was last revised on 2017. Eosinophil pct 0.4 % [facility] Comment: Interpretive Data Percent cell count reference ranges are not reported, since discordance with absolute values may lead to misinterpretation of CBC data. Current Interpretive Data was last revised on 2017. Basophil pct 0.4 % [facility] Comment: Interpretive Data Percent cell count reference ranges are not reported, since discordance with absolute values may lead to misinterpretation of CBC data. Current Interpretive Data was last revised on 2017. Blood 11/08/2021 3:00 AM CDT 11/08/2021 5:51 AM CDT us Braden Hernandez MD LAB BLOOD ORDERABL ES Final Result [facility] Department [place] [address] * (ABNORMAL) CBC with auto differential (11/08/2021 3:00 AM CDT) WBC 7.7 3.8 - 9.9 K/cumm [facility] Hgb 11.7(L) 13.0 - 17.5 g/dL [facility] Hct 38.0(L) 38.9 - 50.3 % [facility] Plt 339 150 - 400 K/cumm [facility] MPV 10.6 9.1 - 12.3 fL [facility] RBC 4.47 4.30 - 5.80 M/cumm [facility] MCV 85.0 81.3 - 96.4 fL [facility] MCH 26.2(L) 27.1 - 33.3 pg [facility] MCHC 30.8(L) 32.3 - 35.7 g/dL [facility] RDW CV 13.8 11.1 - 14.9 % [facility] RDW SD 42.9 35.7 - 48.1 fL [facility] NRBC abs 0.00 0.00 - 0.01 K/cumm [facility] Blood 11/08/2021 3:00 AM CDT 11/08/2021 5:51 AM CDT us Braden Hernandez MD LAB BLOOD ORDERABL ES Final Result [facility] [place] [address] documented in this encounter Visit Diagnoses Not on filedocumented in this encounter Care Teams Instructor Looping Relationship Specialty Start Date End Date No, Physician PCP - General 11/08/21 documented as of this encounter
--- OUTSIDE RECORDS SUMMARY | 2024-05-23 03:31 | XMS_ITS | Encounter Summary ---
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 Gender Identity Not on file Sexual Orientation Not on file documented as of this encounter Plan of Treatment Not on file documented as of this encounter Procedures Procedure Name Priority Date/Time Associated Diagnosis Comments DIFFERENTIAL AUTO STAT 03/23/2021 1:4 0 AM CDT CBC WITH AUTO DIFFERENTIAL STAT 03/23/2021 1:40 AM CDT documented in this encounter Results * (ABNORMAL) Differential, auto (03/23/2021 1:40 AM CDT) Neutrophil abs 5.7 1.7 - 6.5 K/cumm [facility] Imm gran abs 0.0 0.0 - 0.1 K/cumm [facility] Lymphocyte abs 1.5 0.8 - 3.3 K/cumm [facility] Monocyte abs 0.9(H) 0.2 - 0.8 K/cumm [facility] Eosinophil abs 0.5 0.0 - 0.5 K/cumm [facility] Basophil abs 0.1 0.0 - 0.1 K/cumm [facility] Neutrophil pct 65.6 % [facility] Comment: Interpretive Data Percent cell count reference ranges are not reported, since discordance with absolute values may lead to misinterpretation of CBC data. Current Interpretive Data was last revised on 2017. Imm gran pct 0.5 % [facility] Comment: Interpretive Data Percent cell count reference ranges are not reported, since discordance with absolute values may lead to misinterpretation of CBC data. Current Interpretive Data was last revised on 2017. Lymphocyte pct 17.4 % [facility] Comment: Interpretive Data Percent cell count reference ranges are not reported, since discordance with absolute values may lead to misinterpretation of CBC data. Current Interpretive Data was last revised on 2017. Monocyte pct 10.7 % [facility] Comment: Interpretive Data Percent cell count reference ranges are not reported, since discordance with absolute values may lead to misinterpretation of CBC data. Current Interpretive Data was last revised on 2017. Eosinophil pct 5.1 % [facility] Comment: Interpretive Data Percent cell count reference ranges are not reported, since discordance with absolute values may lead to misinterpretation of CBC data. Current Interpretive Data was last revised on 2017. Basophil pct 0.7 % [facility] Comment: Interpretive Data Percent cell count reference ranges are not reported, since discordance with absolute values may lead to misinterpretation of CBC data. Current Interpretive Data was last revised on 2017. Blood 03/23/2021 1:40 AM CDT 03/23/2021 2:58 AM PRE OWNED SALES CONSULTANT Vinicio Quintanilla MD LAB BLOOD ORDERABLE S Final Result [facility] Department of Laboratories [place], [place] [id number] * (ABNORMAL) CBC with auto differential (03/23/2021 1:40 AM CDT) WBC 8.8 3.8 - 9.9 K/cumm [facility] Hgb 9.2(L) 13.0 - 17.5 g/dL [facility] Hct 29.1(L) 38.9 - 50.3 % [facility] Plt 446(H) 150 - 400 K/cumm [facility] MPV 9.3 9.1 - 12.3 fL [facility] RBC 3.32(L) 4.30 - 5.80 M/cumm [facility] MCV 87.7 81.3 - 96.4 fL [facility] MCH 27.7 27.1 - 33.3 pg [facility] MCHC 31.6(L) 32.3 - 35.7 g/dL [facility] RDW CV 14.0 11.1 - 14.9 % [facility] RDW SD 44.7 35.7 - 48.1 fL [facility] NRBC abs 0.00 0.00 - 0.01 K/cumm [facility] Blood 03/23/2021 1:40 AM CDT 03/23/2021 2:58 AM PRE OWNED SALES CONSULTANT Vinicio Herminio Quintanilla MD LAB BLOOD ORDERABLE S Final Result [facility] Department of Laboratories [place], [place] [id number] documented in this encounter Visit Diagnoses Not on filedocumented in this encounter
--- OUTSIDE RECORDS SUMMARY | 2024-05-23 03:31 | XMS_ITS | Encounter Summary ---
Author Organization 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 Blood (Antecubital, left) 04/25/2021 4:05 PM SWING TYPE LATHE OPERATOR 04/25/2021 7:22 PM SWING TYPE LATHE OPERATOR Narrative [facility] - 04/30/2021 7:01 AM SWING TYPE LATHE OPERATOR 1. ?Blood cultures are incubated for 4 [...] organism identification may be performed using the [employer] [employer] Gram-Positive Blood Culture Assay. This assay detects microbial DNA in positive blood culture broth via hybridization of target DNA to capture oligonucleotides on a microarray. This assay has been cleared by the [place] Food and Drug Administration and its performance characteristics have been verified by the [facility]biology Laboratory. 5. ?For questions about this culture, contact the Microbiology Laboratory at [phone]. Interpretive data was last revised on 2019. us Notinfile Unknown LAB MICROBIOLOGY - GENERAL ORD ERABLES Final Result [facility] Department [place] [address] * Blood culture Blood Antecubital, right (04/25/2021 4:05 PM SWING TYPE LATHE OPERATOR) Report Final Report: No growth [facility] Blood (Antecubital, right) 04/25/2021 4:05 PM SWING TYPE LATHE OPERATOR 04/25/2021 7:21 PM SWING TYPE LATHE OPERATOR Narrative [facility] - 04/30/2021 7:01 AM SWING TYPE LATHE OPERATOR 1. ?Blood cultures are incubated for 4 [...] organism identification may be performed using the [employer] [facility] Gram-Positive Blood Culture Assay. This assay detects microbial DNA in positive blood culture broth via hybridization of target DNA to capture oligonucleotides on a microarray. This assay has been cleared by the [place] Food and Drug Administration and its performance characteristics have been verified by the [facility] Laboratory. 5. ?For questions about this culture, contact the Microbiology Laboratory at [phone]. Interpretive data was last revised on 2019. us Notinfile Unknown LAB MICROBIOLOGY - GENERAL ORD ERABLES Final Result [facility] Department [place] [address] documented in this encounter Visit Diagnoses Not on filedocumented in this encounter
--- OUTSIDE RECORDS SUMMARY | 2024-05-23 03:31 | XMS_ITS | Encounter Summary ---
Author Organization [facility] Healthcare Address [address] [place] [address] Care Team Providers Care Shovel Handle Assembler Name Role Phone Unavailable Primary Care Provider Luther e Encounter Details Date Type Department Care Team (Late st Contact Info) Description 05/31/2012 5:44 PM SALES AND SERVICE SPECIALIST - 05/31/2012 6:51 PM SALES AND SERVICE SPECIALIST Hospital Encounter [facility] Tigre Dangelo, FADI [address] [facility] [address] [place] [address] Conjunctivitis; Essential hypertension; Encounter for long-term (current) use of other medications Social History Tobacco Use Types Packs/Day Years Used Date Smoking Tobacco: Never Assessed Sex and Gender Information Value Date Recorded Sex Assigned at Not on file 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 Gender Identity Not on file Sexual Orientation Not on file documented as of this encounter Last Filed Vital Signs Vital Sign Reading Time Taken Comments Blood Pressure 132/86 05/31/2012 6:02 PM SALES AND SERVICE SPECIALIST Pulse 98 05/31/2012 6:02 PM SALES AND SERVICE SPECIALIST Temperature 36.8 ??C (98.3 ??F) 05/31/2012 6:02 PM CS T Respiratory Rate - - Oxygen Saturation 98% 05/31/2012 6:02 PM SALES AND SERVICE SPECIALIST Inhaled Oxygen Concentration - - Weight 126.1 kg (278 lb) 05/31/2012 6:02 PM SALES AND SERVICE SPECIALIST Height 170.2 cm (5' 7 ) 05/31/2012 6:02 PM SALES AND SERVICE SPECIALIST Body Mass Index 43.54 05/31/2012 6:02 PM SALES AND SERVICE SPECIALIST documented in this encounter Plan of Treatment Not on file documented as of this encounter Visit Diagnoses Diagnosis Conjunctivitis Unspecified conjunctivitis Essential hypertension Unspecified essential hypertension Encounter for long-term (current) use of other medications documented in this encounter
--- OUTSIDE RECORDS SUMMARY | 2024-05-23 03:31 | XMS_ITS | Encounter Summary ---
Author Organization [facility] Healthcare Address [address] [place] [address] Care Team Providers Care Fiction And Nonfiction Author Name Role Phone Unavailable Primary Care Provider Unavailabl e Encounter Details Date Type Department Care Team (Latest Contact Info) Description 06/21/2012 10:43 PM CHIEF INVESTMENT OFFICER - 06/22/2012 2:13 AM CHIEF INVESTMENT OFFICER Hospital Encounter [facility] Crystal Villaseñor MD [address] [facility] EM[facility]PART[facility] [place], [place] [id number] Vomiting alone; Diarrhea; Abdominal pain; Essential hypertension; Tobacco use disorder Social History Tobacco Use Types Packs/Day Years Used Date Smoking Tobacco: Never Assessed Sex and Gender Information Value Date Recorded Sex Assigned at Not on file Legal Sex Male 7:30 PM CHIEF INVESTMENT OFFICER Gender Identity Not on file Sexual Orientation Not on file documented as of this encounter Last Filed Vital Signs Vital Sign Reading Time Taken Comments Blood Pressure 100/59 06/21/2012 10:43 PM CHIEF INVESTMENT OFFICER Pulse 82 06/21/2012 10:43 PM CHIEF INVESTMENT OFFICER Temperature 36.7 ??C (98.1 ??F) 06/21/2012 10:[address] Respiratory Rate - - Oxygen Saturation 96% 06/21/2012 10:43 PM CHIEF INVESTMENT OFFICER Inhaled Oxygen Concentration - - Weight 125.2 kg (276 lb) 06/21/2012 10:43 PM CHIEF INVESTMENT OFFICER Height 170.2 cm (5' 7 ) 06/21/2012 10:43 PM CHIEF INVESTMENT OFFICER Body Mass Index 43.23 06/21/2012 10:43 PM CHIEF INVESTMENT OFFICER documented in this encounter Plan of Treatment Not on file documented as of this encounter Procedures Procedure Name Priority Date/Time Associated Diagnosis Comments CBC WITH AUTO DIFFERENTIAL Routine 06/21/2012 11:35 PM CHIEF INVESTMENT OFFICER LIPASE Routine 06/21/2012 11:35 PM CHIEF INVESTMENT OFFICER AMYLASE Routine 06/21/2012 11:35 PM CHIEF INVESTMENT OFFICER COMPREHENSIVE METABOLIC PANEL Routine 06/21/2012 11:35 PM CHIEF INVESTMENT OFFICER MICROBIOLOGY SPECIMEN REPORT (CONVERTED) Routine 06/21/2012 11:25 PM CHIEF INVESTMENT OFFICER URINALYSIS AND REFLEX TO MICROSCOPIC AND CULTURE Routine 06/21/2012 11:25 PM CHIEF INVESTMENT OFFICER documented in this encounter Results * (ABNORMAL) Lipase (06/21/2012 11:35 PM CHIEF INVESTMENT OFFICER) Lipase 61(H) 13 - 60 U/L 06/22/2012 12:18 AM [facility] [employer] HISTORICAL RESULTS 06/21/2012 11:3 5 PM CHIEF INVESTMENT OFFICER 06/21/2012 11:44 PM CHIEF INVESTMENT OFFICER Georgie MORIN LAB BLOOD ORDERABLES Final Re sult [facility] [employer] HISTORICAL RESULTS * (ABNORMAL) Comprehensive metabolic panel (06/21/2012 11:35 PM CHIEF INVESTMENT OFFICER) Sodium 138 135 - 145 mmol/L 06/22/2012 12:18 AM [facility] [employer] HISTORICAL RESULTS Potassium 3.5 3.3 - 5.1 mmol/L 06/22/2012 12:18 AM [facility] [employer] HISTORICAL RESULTS Chloride 104 96 - 108 mmol/L 06/22/2012 12:18 AM [facility] [employer] [facility] HISTORICAL RESULTS Carbon Dioxide 25 22 - 32 mmol/L 06/22/2012 12:18 AM [facility] [employer] HISTORICAL RESULTS Anion Gap 9 06/22/2012 12:18 AM [facility] [employer] HISTORICAL RESULTS Glucose 137(H) 70 - 110 mg/dL 06/22/2012 12:18 AM [facility] HISTORICAL RESULTS BUN 12 6 - 20 mg/dL 06/22/2012 12:18 AM [facility] [employer] [facility] HISTORICAL RESULTS Creatinine 0.9 0.5 - 1.3 mg/dL 06/22/2012 12:18 AM [facility] [employer] HISTORICAL RESULTS Kidney Disease Stage > 90 mL/MIN 06/22/2012 12:18 AM [employer] HISTORICAL RESULTS Comment: NOTE; ??The GFR is an estimated value using the creatinine, sex, age, and race of the patient. THE ESTIMATED GFR IS VALIDATED FOR AGES 18-70 YEARS STAGE ?mL/Min ?DESCRIPTION ??1 ?90 mL/min or more ?Normal or elevated GFR ??2 ? 60-89 mL/min ?Mildly decreased GFR ??3 ? 30-59 mL/min ?Moderately decreased GFR ??4 ? 15-29 mL/min ?Severely decreased GFR ??5 ? <15 mL/min ? Kidney failure or on dialysis @ Calcium 2.19 2.15 - 2.55 mmol/L 06/22/2012 12:18 AM [employer] HISTORICAL RESULTS Total Protein 7.0 6.4 - 8.4 g/dL 06/22/2012 12:18 AM [employer] HISTORICAL RESULTS Albumin 3.9 3.5 - 5.2 g/dL 06/22/2012 12:18 AM [employer] HISTORICAL RESULTS Globulin 3.1 2.3 - 3.5 gm/dL 06/22/2012 12:18 AM [employer] HISTORICAL RESULTS Albumin/Globulin Ratio 1.3 1.1 - 1.8 06/22/2012 12:18 AM [employer] HISTORICAL RESULTS Total Bilirubin 0.1 0.0 - 1.2 mg/dL 06/22/2012 12:18 AM [employer] HISTORICAL RESULTS AST 14 0 - 38 U/L 06/22/2012 12:18 AM [employer] HISTORICAL RESULTS ALT 20 0 - 41 U/L 06/22/2012 12:18 AM [employer] HISTORICAL RESULTS Alkaline Phosphatase 101 40 - 129 U/L 06/22/2012 12:18 AM [employer] HISTORICAL RESULTS 06/21/2012 11:3 5 PM CHIEF INVESTMENT OFFICER 06/21/2012 11:44 PM CHIEF INVESTMENT OFFICER us Georgie MORIN LAB BLOOD ORDERABLES Final Re sult [facility] HISTORICAL RESULTS * CBC with auto differential (06/21/2012 11:35 PM CHIEF INVESTMENT OFFICER) WBC 9.1 4.6 - 10.2 x10 3/ul 06/21/2012 11:50 PM [facility] [employer] HISTORICAL RESULTS RBC 5.10 4.11 - 5.71 x10 6/ul 06/21/2012 11:50 PM [facility] [employer] HISTORICAL RESULTS Hemoglobin 14.2 13.0 - 17.0 g/dl 06/21/2012 11:50 PM [facility] HISTORICAL RESULTS Hct 42.5 38.2 - 48.5 % 06/21/2012 11:50 PM [facility] HISTORICAL RESULTS MCV 83.3 80.0 - 97.0 fl 06/21/2012 11:50 PM [facility] HISTORICAL RESULTS MCH 27.8 27.0 - 31.2 pg 06/21/2012 11:50 PM [facility] HISTORICAL RESULTS MCHC 33.4 31.8 - 35.4 g/dl 06/21/2012 11:50 PM [facility] HISTORICAL RESULTS RDW 13.9 11.6 - 14.8 % 06/21/2012 11:50 PM [facility] HISTORICAL RESULTS Plt Count 311 124 - 400 x10 3/ul 06/21/2012 11:50 PM [facility] HISTORICAL RESULTS MPV 9.5 7.4 - 10.4 fl 06/21/2012 11:50 PM [facility] HISTORICAL RESULTS Differential Method AUTOMATED DIFF --------- -- 06/21/2012 11:50 PM [facility] HISTORICAL RESULTS Neut % 61.0 37.0 - 85.0 % 06/21/2012 11:50 PM [facility] HISTORICAL RESULTS Immature Gran % 0.2 0.0 - 3.0 % 06/21/2012 11:50 PM [facility] [employer] [facility] HISTORICAL RESULTS Lymph % 28.5 5.0 - 45.0 % [place] % 7.6 3.0 - 15.0 % Eos % 2.5 0.0 - 7.0 % Baso % 0.2 0.0 - 2.0 % ABSOLUTE COUNTS ABSOLUTE COUNTS --------- -- Absolute Neuts (auto) 5.5 1.7 - 8.7 x10 3/ul Immature Gran # 0.0 0.0 - 0.3 x10 3/ul Absolute Lymphs (auto) 2.6 0.2 - 4.6 x10 3/ul Absolute Monos (auto) 0.7 0.1 - 1.5 x10 3/ul Absolute Eos (auto) 0.2 0.0 - 0.7 x10 3/ul Absolute Basos (auto) 0.0 0.0 - 0.2 x10 3/ul 06/21/2012 11:3 5 PM CHIEF INVESTMENT OFFICER 06/21/2012 11:44 PM CHIEF INVESTMENT OFFICER us Georgie MORIN LAB BLOOD ORDERABLES Final Re sult [facility] HISTORICAL RESULTS * Amylase (06/21/2012 11:35 PM CHIEF INVESTMENT OFFICER) Amylase 79 28 - 100 U/L 06/21/2012 11:3 5 PM CHIEF INVESTMENT OFFICER 06/21/2012 11:44 PM CHIEF INVESTMENT OFFICER us Georgie MORIN LAB BLOOD ORDERABLES Final Re sult Performing Organization Address [facility] Co de Phone Number [facility] HISTORICAL RESULTS * Microbiology Specimen Report (Converted) (06/21/2012 11:25 PM CHIEF INVESTMENT OFFICER) 06/21/2012 11:2 5 PM CHIEF INVESTMENT OFFICER 06/21/2012 11:31 PM CHIEF INVESTMENT OFFICER Narrative [facility] HISTORICAL RESULTS - 06/21/2012 11:25 PM CHIEF INVESTMENT OFFICER Microbiology Specimen Report (Converted) SPECIMEN [id number] ?? COLLECTED: 2012-06-21 23:25:00 ?? REQ#: [id number] REQUESTING DR: Georgie Becerril ?? SOURCE: URINE ?? SP DESC: CLEAN CATC --- PROCEDURE --- ?--- RESULT --- ?? CULTURE URINE ??(Final) ??- ??Performed at [facility] ?? * Organism 1 - GRAM POSITIVE ORGANISM [GPO] ?* COLONY COUNT: 1,000 CFU/ml - [facility] ? [address] [place] [address] ? [place] [address] ? Veto Gomez MD Procedure Note 08/06/2018 Microbiology Specimen Report (Converted) SPECIMEN [id number] COLLECTED: 2012-06-21 23:25:00 REQ#:[id number] REQUESTING DR: Georgie Becerril SOURCE: URINE SP DESC: CLEAN CATC --- PROCEDURE --- --- RESULT --- CULTURE URINE (Final) - Performed at [facility] * Organism 1 - GRAM POSITIVE ORGANISM [GPO] * COLONY COUNT: 1,000 CFU/[place] [address] Veto Gomez MD us Georgie MORIN LAB BLOOD ORDERABLES Final Re sult Performing Organization Address [facility]/ZIP Co de Phone Number [facility] HISTORICAL RESULTS * (ABNORMAL) Urinalysis reflex to microscopic and culture (06/21/2012 11:25 PM [facility]) Ur Collection Type CLEAN CATCH Ur Culture Indicated? C&S INDICATED Comment:Culture report to juanpablo rodrigez. Urine Color YELLOW YELLOW Urine Clarity CLEAR CLEAR Urine Glucose (UA) NORMAL NORMAL mg/dL Urine Bilirubin NEGATIVE NEGATIVE mg/dl Urine Ketones NEGATIVE NEGATIVE mg/dL Ur Specific [place] 1.022 1.005 - 1.025 Urine Blood NEGATIVE NEGATIVE mg/dl Urine pH 5.5 5.0 - 8.0 Urine Protein 10(H) NEGATIVE mg/dL Urine Urobilinogen 2(H) NORMAL mg/dL Urine Nitrite NEGATIVE NEGATIVE Ur Leukocyte Esterase 25(H) NEGATIVE Gurpreet/ul Ur Microscopic Review Indicated or Ordered Urine RBC 1 0 - 2 /HPF Urine WBC 15 0 - 2 /HPF Urine Mucus Rare /LPF Ur Squamous Epith Cells Rare /HPF 06/21/2012 11:2 5 PM CHIEF INVESTMENT OFFICER 06/21/2012 11:31 PM CHIEF INVESTMENT OFFICER Narrative [facility] HISTORICAL RESULTS - 06/21/2012 11:36 PM CHIEF INVESTMENT OFFICER Collected By acs ?? [phone] ?? us Georgie MORIN LAB MICROBIOLOGY - GENERAL OR DERABLES Final Result [facility] HISTORICAL RESULTS documented in this encounter Visit Diagnoses Diagnosis Vomiting alone Diarrhea Abdominal pain Abdominal pain, unspecified site Essential hypertension Unspecified essential hypertension Tobacco use disorder documented in this encounter
--- OUTSIDE RECORDS SUMMARY | 2024-05-23 03:31 | XMS_ITS | Encounter Summary ---
Author Organization [facility] Healthcare Address [address] [place] [address] Care Team Providers Care Aircraft Charter Dispatcher Name Role Phone Unavailable Primary Care Provider Luther e Encounter Details Date Type Department Care Team (Late st Contact Info) Description 07/03/2021 2:10 PM LOCKSTITCH WAISTLINE JOINER Lab [address] [address] Social History Tobacco Use Types Packs/Day Years Used Date Smoking Tobacco: Never Assessed Sex and Gender Information Value Date Recorded Sex Assigned at Not on file Legal Sex Male 7:30 PM LOCKSTITCH WAISTLINE JOINER Gender Identity Not on file Sexual Orientation Not on file documented as of this encounter Plan of Treatment Not on file documented as of this encounter Procedures Procedure Name Priority Date/Time Associated Diagnosis Comments MISLABLED TEST Routine 07/03/2021 11:19 AM LOCKSTITCH WAISTLINE JOINER documented in this encounter Results * Mislabeled Test (07/03/2021 11:19 AM LOCKSTITCH WAISTLINE JOINER) Location Outreach [facility] Reason Specimen and Requistion labeling differ [facility] Mislabel resolution Testing canceled [facility] Blood 07/03/2021 11:1 9 AM LOCKSTITCH WAISTLINE JOINER 07/03/2021 3:38 PM LOCKSTITCH WAISTLINE JOINER us Notinfile Unknown LAB BLOOD ORDERABLES Final Res ult [facility] Department [place] [address] documented in this encounter Visit Diagnoses Not on filedocumented in this encounter
--- OUTSIDE RECORDS SUMMARY | 2024-05-23 03:31 | XMS_ITS | Encounter Summary ---
Author Organization [facility] Healthcare Address [address] [place] [address] Care Team Providers Care Radiology Administrator Name Role Phone Unavailable Primary Care Provider Luther e Encounter Details Date Type Department Care Team (Latest Contact Info) Description 10/13/2021 12:15 AM CDT - 10/13/2021 11:59 PM CDT Hospital Encounter [address] [address] Discharge Disposition: Discharge to home or self care Social History Tobacco Use Types Packs/Day Years Used Date Smoking Tobacco: Never Assessed Sex and Gender Information Value Date Recorded Sex Assigned at Not on file Legal Sex Male 7:30 PM HADOOP ADMIN Gender Identity Not on file Sexual Orientation Not on file documented as of this encounter Discharge Disposition Disposition Code Departure Means Destination Discharge to home or self care documented in this encounter Plan of Treatment Not on file documented as of this encounter Procedures Procedure Name Priority Date/Time Associated Diagnosis Comments EGFR Routine 10/13/2021 12:15 AM CDT DIFFERENTIAL AUTO STAT 10/13/2021 12: 15 AM CDT COMPREHENSIVE METABOIC PANEL, SERUM Routine 10/13/2021 12:15 AM CDT CBC WITH AUTO DIFFERENTIAL STAT 10/13/2021 12:15 AM CDT documented in this encounter Results * eGFR (10/13/2021 12:15 AM CDT) eGFR >90 90 - 130 mL/min/1. 73 m2 [facility] Comment: Interpretive Data Reference Interval Normal [...] interpretive data was last reviewed 2021. Blood 10/13/2021 12:1 5 AM CDT 10/13/2021 5:24 AM CDT us Vinicio Quintanilla MD LAB BLOOD ORDERABLE S Final Result [facility] Department of Laboratories [place], [place] [id number] * Differential, auto (10/13/2021 12:15 AM CDT) Neutrophil abs 5.9 1.7 - 6.5 K/cumm [facility] Imm gran abs 0.0 0.0 - 0.1 K/cumm [facility] Lymphocyte abs 1.9 0.8 - 3.3 K/cumm [facility] Monocyte abs 0.7 0.2 - 0.8 K/cumm [facility] Eosinophil abs 0.3 0.0 - 0.5 K/cumm [facility] Basophil abs 0.0 0.0 - 0.1 K/cumm [facility] Neutrophil pct 67.0 % [facility] Comment: Interpretive Data Percent cell count reference ranges are not reported, since discordance with absolute values may lead to misinterpretation of CBC data. Current Interpretive Data was last revised on 2017. Imm gran pct 0.3 % [facility] Comment: Interpretive Data Percent cell count reference ranges are not reported, since discordance with absolute values may lead to misinterpretation of CBC data. Current Interpretive Data was last revised on 2017. Lymphocyte pct 21.8 % [facility] Comment: Interpretive Data Percent cell count reference ranges are not reported, since discordance with absolute values may lead to misinterpretation of CBC data. Current Interpretive Data was last revised on 2017. Monocyte pct 7.4 % [facility] Comment: Interpretive Data Percent cell count reference ranges are not reported, since discordance with absolute values may lead to misinterpretation of CBC data. Current Interpretive Data was last revised on 2017. Eosinophil pct 3.2 % [facility] Comment: Interpretive Data Percent cell count reference ranges are not reported, since discordance with absolute values may lead to misinterpretation of CBC data. Current Interpretive Data was last revised on 2017. Basophil pct 0.3 % [facility] Comment: Interpretive Data Percent cell count reference ranges are not reported, since discordance with absolute values may lead to misinterpretation of CBC data. Current Interpretive Data was last revised on 2017. Blood 10/13/2021 12:1 5 AM CDT 10/13/2021 5:12 AM CDT us Vinicio Quintanilla MD LAB BLOOD ORDERABLE S Final Result [facility] Department [place] [address] * (ABNORMAL) Comprehensive metabolic panel, serum (10/13/2021 12:15 AM CDT) Sodium 144 135 - 145 mmol/L [facility] Potassium, sr 4.8 3.6 - 5.2 mmol/L [facility] Chloride 104 97 - 110 mmol/L [facility] CO2 28 22 - 32 mmol/L [facility] Anion gap 12 2 - 15 mmol/L [facility] BUN 29(H) 8 - 25 mg/dL [facility] Creatinine 1.00 0.80 - 1.30 mg/dL [facility] Glucose 118 70 - 199 mg/dL [facility] Comment: Interpretive Data Fasting glucose >/= 126 [...] interpretive data was last revised 2017. Calcium 10.6(H) 8.5 - 10.3 mg/dL [facility] Bilirubin, total 0.2 0.1 - 1.2 mg/dL [facility] Protein, sr 7.6 6.2 - 8.2 g/dL [facility] Albumin 3.9 3.5 - 5.0 g/dL [facility] Alk phos 152(H) 40 - 130 Units/L [facility] ALT 23 7 - 55 Units/L [facility] AST 17 10 - 50 Units/L [facility] Blood 10/13/2021 12:1 5 AM CDT 10/13/2021 5:12 AM CDT us Vinicio Quintanilla MD LAB BLOOD ORDERABLE S Final Result [facility] [place] [address] * (ABNORMAL) CBC with auto differential (10/13/2021 12:15 AM CDT) WBC 8.8 3.8 - 9.9 K/cumm [facility] Hgb 11.8(L) 13.0 - 17.5 g/dL [facility] Hct 37.2(L) 38.9 - 50.3 % [facility] Plt 389 150 - 400 K/cumm [facility] MPV 10.7 9.1 - 12.3 fL [facility] RBC 4.44 4.30 - 5.80 M/cumm [facility] MCV 83.8 81.3 - 96.4 fL [facility] MCH 26.6(L) 27.1 - 33.3 pg [facility] MCHC 31.7(L) 32.3 - 35.7 g/dL [facility] RDW CV 14.0 11.1 - 14.9 % [facility] RDW SD 42.8 35.7 - 48.1 fL [facility] NRBC abs 0.00 0.00 - 0.01 K/cumm [facility] Blood 10/13/2021 12:1 5 AM CDT 10/13/2021 5:12 AM CDT us Vinicio Quintanilla MD LAB BLOOD ORDERABLE S Final Result [facility] Department [place] [address] documented in this encounter Visit Diagnoses Not on filedocumented in this encounter
--- OUTSIDE RECORDS SUMMARY | 2024-05-23 03:31 | XMS_ITS | Encounter Summary ---
Author Organization [facility] Healthcare Address [address] [place] [address] Care Team Providers Care Siding Applicator Name Role Phone Unavailable Primary Care Provider Luther e Encounter Details Date Type Department Care Team (Late st Contact Info) Description 04/03/2021 8:55 AM CHILD PROTECTION SPECIALIST Lab [address] [address] Social History Tobacco Use Types Packs/Day Years Used Date Smoking Tobacco: Never Assessed Sex and Gender Information Value Date Recorded Sex Assigned at Not on file Legal Sex Male 7:30 PM CHILD PROTECTION SPECIALIST Gender Identity Not on file Sexual Orientation Not on file documented as of this encounter Plan of Treatment Not on file documented as of this encounter Procedures Procedure Name Priority Date/Time Associated Diagnosis Comments EGFR STAT 04/03/2021 5:00 AM CHILD PROTECTION SPECIALIST DIFFERENTIAL AUTO STAT 04/03/2021 5:0 0 AM CHILD PROTECTION SPECIALIST COMPREHENSIVE METABOIC PANEL, SERUM STAT 04/03/2021 5:00 AM CHILD PROTECTION SPECIALIST CBC WITH AUTO DIFFERENTIAL STAT 04/03/2021 5:00 AM CHILD PROTECTION SPECIALIST VANCOMYCIN LEVEL TROUGH STAT 04/03/2021 5:00 AM CHILD PROTECTION SPECIALIST documented in this encounter Results * eGFR (04/03/2021 5:00 AM CHILD PROTECTION SPECIALIST) eGFR >90 90 - 130 mL/min/1.7 3 m2 [facility] Comment: Interpretive Data Reference Interval [...] interpretive data was last reviewed 2020 Blood 04/03/2021 5:00 AM CHILD PROTECTION SPECIALIST 04/03/2021 9:02 AM CHILD PROTECTION SPECIALIST us Notinfile Unknown LAB BLOOD ORDERABLES Final Res ult [facility] One [facility] [place] [address] * Differential, auto (04/03/2021 5:00 AM CHILD PROTECTION SPECIALIST) Neutrophil abs 4.1 1.7 - 6.5 K/cumm [facility] Imm gran abs 0.0 0.0 - 0.1 K/cumm [facility] Lymphocyte abs 1.1 0.8 - 3.3 K/cumm [facility] Monocyte abs 0.8 0.2 - 0.8 K/cumm [facility] Eosinophil abs 0.5 0.0 - 0.5 K/cumm [facility] Basophil abs 0.0 0.0 - 0.1 K/cumm [facility] Neutrophil pct 63.2 % [facility] Comment: Interpretive Data Percent cell count reference ranges are not reported, since discordance with absolute values may lead to misinterpretation of CBC data. Current Interpretive Data was last revised on 2017. Imm gran pct 0.3 % [facility] Comment: Interpretive Data Percent cell count reference ranges are not reported, since discordance with absolute values may lead to misinterpretation of CBC data. Current Interpretive Data was last revised on 2017. Lymphocyte pct 16.7 % [facility] Comment: Interpretive Data Percent cell count reference ranges are not reported, since discordance with absolute values may lead to misinterpretation of CBC data. Current Interpretive Data was last revised on 2017. Monocyte pct 11.5 % [facility] Comment: Interpretive Data Percent cell count reference ranges are not reported, since discordance with absolute values may lead to misinterpretation of CBC data. Current Interpretive Data was last revised on 2017. Eosinophil pct 7.8 % [facility] Comment: Interpretive Data Percent cell count reference ranges are not reported, since discordance with absolute values may lead to misinterpretation of CBC data. Current Interpretive Data was last revised on 2017. Basophil pct 0.5 % [facility] Comment: Interpretive Data Percent cell count reference ranges are not reported, since discordance with absolute values may lead to misinterpretation of CBC data. Current Interpretive Data was last revised on 2017. Blood 04/03/2021 5:00 AM CHILD PROTECTION SPECIALIST 04/03/2021 8:54 AM CHILD PROTECTION SPECIALIST us Notinfile Unknown LAB BLOOD ORDERABLES Final [facility] One [facility] Department [place] [address] * Vancomycin level trough (04/03/2021 5:00 AM CHILD PROTECTION SPECIALIST) Vancomycin trough 10.7 10.0 - 20.0 mcg/mL [facility] Blood 04/03/2021 5:00 AM CHILD PROTECTION SPECIALIST 04/03/2021 8:54 AM CHILD PROTECTION SPECIALIST us Notinfile Unknown LAB BLOOD ORDERABLES Final Res ult Performing Organization Address [facility] Co de Phone Number [facility] Department [place] [address] * (ABNORMAL) CBC with auto differential (04/03/2021 5:00 AM CHILD PROTECTION SPECIALIST) [facility] WBC 6.5 3.8 - 9.9 K/cumm [facility] Hgb 8.8(L) 13.0 - 17.5 g/dL [facility] Hct 27.7(L) 38.9 - 50.3 % [facility] Plt 364 150 - 400 K/cumm [facility] MPV 9.7 9.1 - 12.3 fL [facility] RBC 3.09(L) 4.30 - 5.80 M/cumm [facility] MCV 89.6 81.3 - 96.4 fL [facility] MCH 28.5 27.1 - 33.3 pg [facility] MCHC 31.8(L) 32.3 - 35.7 g/dL [facility] RDW CV 15.7(H) 11.1 - 14.9 % [facility] RDW SD 50.8(H) 35.7 - 48.1 fL [facility] NRBC abs 0.00 0.00 - 0.01 K/cumm [facility] Blood 04/03/2021 5:00 AM CHILD PROTECTION SPECIALIST 04/03/2021 8:54 AM CHILD PROTECTION SPECIALIST us Notinfile Unknown LAB BLOOD ORDERABLES Final Res ult Performing Organization Address [facility] Co de Phone Number [facility] Department [place] [address] * (ABNORMAL) Comprehensive metabolic panel, serum (04/03/2021 5:00 AM CHILD PROTECTION SPECIALIST) [facility] Sodium 141 135 - 145 mmol/L [facility] Potassium, sr 4.5 3.6 - 5.2 mmol/L [facility] Chloride 106 97 - 110 mmol/L [facility] CO2 25 22 - 32 mmol/L [facility] Anion gap 10 2 - 15 mmol/L [facility] BUN 24 8 - 25 mg/dL [facility] Creatinine 0.91 0.80 - 1.30 mg/dL [facility] Glucose 101 70 - 199 mg/dL [facility] Comment: Interpretive Data Fasting glucose >/= [...] interpretive data was last revised 2017. Calcium 9.7 8.5 - 10.3 mg/dL [facility] Bilirubin, total 0.2 0.1 - 1.2 mg/dL [facility] Protein, sr 7.4 6.2 - 8.2 g/dL [facility] Albumin 3.4(L) 3.5 - 5.0 g/dL [facility] Alk phos 105 40 - 130 Units/L [facility] ALT 23 7 - 55 Units/L [facility] AST 28 10 - 50 Units/L [facility] Blood 04/03/2021 5:00 AM CHILD PROTECTION SPECIALIST 04/03/2021 8:53 AM CHILD PROTECTION SPECIALIST us Notinfile Unknown LAB BLOOD ORDERABLES Final Res ult [facility] One [facility] [place] [address] documented in this encounter Visit Diagnoses Not on filedocumented in this encounter
--- OUTSIDE RECORDS SUMMARY | 2024-05-23 03:31 | XMS_ITS | Encounter Summary ---
Author Organization [facility] Healthcare Address [address] [place] [address] Care Team Providers Care Cellophane Worker Name Role Phone Unavailable Primary Care Provider Unavailabl e Encounter Details Date Type Department Care Team (Latest Contact Info) Description 08/02/2013 1:25 PM CDT - 08/02/2013 4:15 PM CDT Hospital Encounter [facility] Lorne Ca MD [address] [place] [address] Chest pain; Disorder of teeth and supporting structures; Other specified cardiac dysrhythmias; Essential hypertension Social History Tobacco Use Types Packs/Day Years Used Date Smoking Tobacco: Never Assessed Sex and Gender Information Value Date Recorded Sex Assigned at Not on file 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 Gender Identity Not on file Sexual Orientation Not on file documented as of this encounter Last Filed Vital Signs Vital Sign Reading Time Taken Comments Blood Pressure 148/91 08/02/2013 1:27 PM CDT Pulse 71 08/02/2013 1:27 PM CDT Temperature 36.8 ??C (98.2 ??F) 08/02/2013 1:27 PM CD T Respiratory Rate - - Oxygen Saturation 97% 08/02/2013 1:27 PM CDT Inhaled Oxygen Concentration - - Weight 129.7 kg (286 lb) 08/02/2013 1:27 PM CDT Height 170.2 cm (5' 7 ) 08/02/2013 1:27 PM CDT Body Mass Index 44.79 08/02/2013 1:27 PM CDT documented in this encounter Plan of Treatment Not on file documented as of this encounter Procedures Procedure Name Priority Date/Time Associated Diagnosis Comments XR CHEST PA LATERAL 2 VIEWS Routine 08/02/2013 12:00 AM CDT documented in this encounter Results * XR Chest Pa Lateral 2 Views (08/02/2013 12:00 AM CDT) Anatomical Region Laterality Modality Body, Chest N/A Radiographic Sera ging 08/02/2013 Impressions 08/02/2013 3:25 PM CDT No acute cardiopulmonary process identified. THIS IS AN ELECTRONICALLY VERIFIED REPORT 08/02/2013 3:22 PM: ??Abdulaziz Jorge M.D. Maria Antonia Mckeon 03:22 PM 03:22 PM [facility] [EOD] Narrative 08/02/2013 3:25 PM CDT RADIOLOGIC EXAMINATION(S):CR CHEST 2V CLINICAL HISTORY: Chest pain COMPARISON:None of the FINDINGS: PA and lateral view of the chest are reviewed. The cardiac silhouette is within top normal limits. The lung wolfe are clear. Soft tissue and osseous structures are unremarkable. Procedure Note Provider, MD Miguel Angel - 10/02/2020 RADIOLOGIC EXAMINATION(S):CR CHEST 2V CLINICAL HISTORY: Chest pain COMPARISON:None of the FINDINGS: PA and lateral view of the chest are reviewed. The cardiac silhouette is within top normal limits. The lung wolfe are clear. Soft tissue and osseous structures are unremarkable. IMPRESSION: No acute cardiopulmonary process identified. THIS IS AN ELECTRONICALLY VERIFIED REPORT 08/02/2013 3:22 PM: Abdulaziz Jorge M.D. Maria Antonia Mckeon 03:22 PM 03:22 PM [facility] [EOD] Lorne Sloan MD IMG XR PROCEDURES Final Result documented in this encounter Visit Diagnoses Diagnosis Chest pain Unspecified chest pain Disorder of teeth and supporting structures Unspecified disorder of the teeth and supporting structures Other specified cardiac dysrhythmias Essential hypertension Unspecified essential hypertension documented in this encounter
--- OUTSIDE RECORDS SUMMARY | 2024-05-23 03:31 | XMS_ITS | Encounter Summary ---
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 Gender Identity Not on file Sexual Orientation Not on file documented as of this encounter Plan of Treatment Not on file documented as of this encounter Procedures Procedure Name Priority Date/Time Associated Diagnosis Comments REFLEX HEPATITIS C RNA Routine 08/01/2021 11:40 AM CDT HIV 1/2 ANTIBODY PLUS P24 ANTIGEN Routine 08/01/2021 11:40 AM CDT HEPATITIS PANEL, ACUTE Routine 08/01/2021 11:40 AM CDT AEROBIC CULTURE AND GRAM STAIN Routine 08/01/2021 5:35 AM CDT documented in this encounter Results * Reflex Hepatitis C RNA, Quantitative (08/01/2021 11:40 AM CDT) Pathologist [facility] [place] HCV RNA result Not Detected [facility] Comment: The quantifiable range of this assay is 15 IU/mL to 100,000,000 IU/mL (1.18 log IU/mL to 8.00 log IU/mL). Testing was performed by the [facility] HCV Test ([employer] Testing performed at [facility] Current Interpretive Data was last revised on 2020 Blood 08/01/2021 11:4 0 AM CDT 08/01/2021 11:18 PM CDT us Notinfile Unknown LAB BLOOD ORDERABLES Final Res ult [facility] [place] [address] * HIV 1/2 Antibody plus p24 Antigen Blood (08/01/2021 11:40 AM CDT) HIV 1/2 ab + p24 ag Nonreactive Nonreactive [facility] Comment: Nonreactive for HIV-1 antigen and HIV-1/HIV-2 antibodies. No laboratory evidence of HIV infection. If acute HIV infection is suspected, consider testing for HIV-1 RNA. Blood 08/01/2021 11:4 0 AM CDT 08/01/2021 9:22 PM CDT us Notinfile Unknown LAB MICROBIOLOGY - GENERAL ORD ERABLES Final Result Performing Organization Address [facility] [place] [address] * (ABNORMAL) Hepatitis panel, acute (08/01/2021 11:40 AM CDT) Hep A IgM Nonreactive Nonreactive [facility] Comment: Interpretive Data: If Hep A IgM Ab is reported as Equivocal, a new sample should be drawn in two weeks for testing. Current interpretive data was last revised on 19. Hep B core IgM Nonreactive Nonreactive [facility] Comment: Interpretive Data If HepB Core IgM Ab is reported as Equivocal, a new sample should be drawn in two weeks for testing. Current interpretive data was last revised on 19. Hep C Ab Reactive(A) Nonreactive [facility] Comment:Positive for HCV ant ibodies.?? This may represent current or past HCV infection. Supplemental molecular testing will be automatically performed to determine ??current infection status in accordance with current CDC screening recommendations. HepBsAg Nonreactive Nonreactive [facility] Blood 08/01/2021 11:4 0 AM CDT 08/01/2021 9:22 PM CDT us Notinfile Unknown LAB MICROBIOLOGY - GENERAL ORD ERABLES Final Result [facility] One [facility] Department [place] [address] * (ABNORMAL) Aerobic culture and gram stain Tracheal aspirate (08/01/2021 5:35 AM CDT) Direct Specimen Exam Stain: Abundant polymorphonuclear leukocytes seen. Abundant squamous epithelial cells seen indicating excessive oral pharyngeal contamination Abundant mixed bacterial zi seen on Gram stain. [facility] Report Final Report: Greater than or equal to 100,000 colonies/ml of Serratia marcescens Plus growth of clinically insignificant bacterial zi. (.) [facility] Organism SERRATIA MARCESCENS [facility] Organism PLUS GROWTH OF CLINICALLY INSIGNIFICANT ZI. [facility] Tracheal aspirate 08/01/2021 5:35 AM CDT 08/02/2021 5:35 AM CDT Narrative [facility] - 08/06/2021 7:37 AM CDT Testing performed by [facility] ([phone]) Specimens submitted from normally sterile body sites will have all bacterial morphotypes identified. ??Specimens that contain grossly mixed zi and/or are from body sites that are not normally sterile will be examined for Staphylococcus aureus, Pseudomonas aeruginosa, beta-hemolytic strep, vancomycin-resistant Enterococcus and fungus. ??If any of these are isolated, the organism will be reported. Current interpretive data was last revised on 2016. Organism Antibiotic Method Susceptibility Serratia marcescens Ampicillin INTERPRETATION Resistant Serratia marcescens Cefazolin INTERPRETATION Resistant Serratia marcescens Gentamicin INTERPRETATION Susceptible Serratia marcescens Ampicillin with Sulbactam INTERPRE TATION Resistant Serratia marcescens Trimethoprim with Sulfamethoxazole INTERPRETATION Susceptible Serratia marcescens Meropenem INTERPRETATION Susceptible Serratia marcescens Cefepime INTERPRETATION Susceptible Serratia marcescens Ciprofloxacin INTERPRETATION Susceptible Serratia marcescens Ceftazidime INTERPRETATION Resistant Serratia marcescens Ceftriaxone INTERPRETATION Resistant Serratia marcescens Piperacillin/Tazobactam INTERPRETA TION Resistant us Notinfile Unknown LAB MICROBIOLOGY - GENERAL ORD ERABLES Final Result Performing Organization Address City/State/[facility] Co de Phone Number [facility] One [facility] [place] [address] documented in this encounter Visit Diagnoses Not on filedocumented in this encounter
--- OUTSIDE RECORDS SUMMARY | 2024-05-23 03:31 | XMS_ITS | Clinical Summary ---
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 Gender Identity Not on file Sexual Orientation Not on file Obstetrics History Last Filed Vital Signs Vital Sign Reading [...] cm (5' 7 ) 06/01/2016 4:44 AM METAL TECHNICIAN Body Mass Index 34.53 06/01/2016 4:44 AM METAL TECHNICIAN Plan of Treatment Health Maintenance Due Date Last Done Comments Depression Screening 1985 Varicella Vaccines (1 of 2 - 13+ 2-dose series) 1998 Hepatitis B Screening 12/30/2003 Regular Well Visit/Exam 18-64 12/30/2003 Influenza Vaccine (#1) 2024 DTaP/Tdap/Td Vaccine (2 - Td or Tdap) 02/15/2031 02/15/2021 Hepatitis C Screening Completed 08/01/2021 HPV Vaccines Aged Out No longer eligi ble based on patient's age to complete this topic Pneumococcal vaccine <65 Aged Out No longer eligible based on patient's age to complete this topic Procedures Procedure Name Priority Date/Time Associated Diagnosis Comments HEPATITIS PANEL, ACUTE Routine 08/01/2021 11:40 AM CDT from Last 3 Months or Most Recently Relevant to Health Maintenance Results * (ABNORMAL) Hepatitis panel, acute (08/01/2021 11:40 AM CDT) Hep A IgM Nonreactive Nonreactive [facility] Comment: Interpretive Data: If Hep A IgM Ab is reported as Equivocal, a new sample should be drawn in two weeks for testing. Current interpretive data was last revised on 19. Hep B core IgM Nonreactive Nonreactive [facility] Comment: Interpretive Data If HepB Core IgM Ab is reported as Equivocal, a new sample should be drawn in two weeks for testing. Current interpretive data was last revised on 19. Hep C Ab Reactive(A) Nonreactive [facility] Comment:Positive for HCV ant ibodies.?? This may represent current or past HCV infection. Supplemental molecular testing will be automatically performed to determine ??current infection status in accordance with current CDC screening recommendations. HepBsAg Nonreactive Nonreactive [facility] Blood 08/01/2021 11:4 0 AM CDT 08/01/2021 9:22 PM CDT us Notinfile Unknown LAB MICROBIOLOGY - GENERAL ORD ERABLES Final Result [facility] One [facility] Department [place] [address] from Last 3 Months or Most Recently Relevant to Health Maintenance Insurance [facility] [place] [address] [address] Care Teams Shellfish Shucker Relationship Specialty Start Date End Date No, Physician PCP - General 11/08/21
--- OUTSIDE RECORDS SUMMARY | 2024-05-23 03:31 | XMS_ITS | Clinical Summary ---
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 CHANGES TO CO-MORBID CONDITIONS AND ANY NEW CONDITIONS WILL BE IDENTIFIED AND REPORTED TO THE PHYSICIAN. Goal Provider Goal - PATIENT/CAREGIVER WILL VERBALIZE UNDERSTANDING OF SIGNS AND SYMPTOMS THAT PUT THE PATIENT AT RISK FOR HOSPITALIZATION /EMERGENCY ROOM VISITS, WHEN TO NOTIFY NURSE/PHYSICIAN OF COMPLICATIONS/DECLINE AND WHEN TO CALL 911. Goal Provider Goal - PATIENT / CAREGIVER WILL VERBALIZE / DEMONSTRATE UNDERSTANDING OF PAIN CONTROL MEASURES BY EOE Goal Provider Goal - Goal Provider Goal - PATIENT / CAREGIVER WILL VERBALIZE/DEMONSTRATE UNDERSTANDING OF MEASURES TO MANAGE ALTERED GENITOURINARY STATUS BY END OF EPISODE. Goal Provider Goal - PATIENT WILL DEMONSTRATE IMPROVEMENT IN S/S OF UTI TO AVOID HOSPITALIZATION. Goal Provider Goal - PATIENT WILL DEMONSTRATE IMPROVEMENT IN S/S OF UTI TO AVOID HOSPITALIZATION. Goal Provider Goal - PATIENT/CAREGIVER WILL VERBALIZE/DEMONSTRATE UNDERSTANDING OF CARE AND MANAGEMENT OF URINARY INCONTINENCE BY EOE Goal Provider Goal - PATIENT/CAREGIVER WILL VERBALIZE/DEMONSTRATE UNDERSTANDING OF CARE AND MANAGEMENT OF URINARY TRACT INFECTION BY EOE Goal Provider Goal - PATIENT / CAREGIVER WILL VERBALIZE/DEMONSTRATE UNDERSTANDING OF MEASURES TO MANAGE ALTERED GASTROINTESTINAL STATUS BY END OF EPISODE. Goal Provider Goal - PATIENT/CAREGIVER WILL VERBALIZE/DEMONSTRATE UNDERSTANDING OF CARE AND MANAGEMENT OF ENTERAL TUBE FEEDING BY END OF EPISODE. Goal Provider Goal - PATIENT / CAREGIVER WILL VERBALIZE/DEMONSTRATE UNDERSTANDING OF MEASURES TO MANAGE ALTERED CARDIOVASCULAR STATUS BY EOE Goal Provider Goal - PATIENT / CAREGIVER WILL VERBALIZE/DEMONSTRATE AN ABILITY TO ADHERE TO SELF-MANAGEMENT OF HTN TO MINIMIZE COMPLICATIONS AND AVOID HOSPITALIZATION BY END OF EPISODE. Goal Provider Goal - PATIENT/CAREGIVER TO VERBALIZE, AND CONSISTENTLY DEMONSTRATE EFFECTIVE, SAFE MANAGEMENT OF MEDICATION INCLUDING KNOWLEDGE OF EFFECTIVENESS, POTENTIAL SIDE EFFECTS AND DRUG REACTIONS AND WHEN TO CONTACT THE APPROPRIATE CARE PROVIDER. PATIENT/CAREGIVER WILL BE ABLE TO VERBALIZE UNDERSTANDING OF MEDICATION REGIMEN AND ACCURATELY TAKE MEDICATIONS PRESCRIBED WITHOUT ADVERSE EFFECTS BY EOE Goal Provider Goal - PATIENT / CAREGIVER WILL VERBALIZE/DEMONSTRATE UNDERSTANDING OF MEASURES TO MANAGE ALTERED RESPIRATORY STATUS BY END OF EPISODE. Goal Provider Goal - CHANGES IN SKIN INTEGRITY STATUS WILL BE IDENTIFIED AND REPORTED TO THE PHYSICIAN FOR PROMPT INTERVENTION. PATIENT / CAREGIVER WILL VERBALIZE/DEMONSTRATE ADEQUATE KNOWLEDGE OF INTEGUMENTARY STATUS AND APPROPRIATE MEASURES TO PROMOTE SKIN INTEGRITY AND PREVENT INJURY BY EOE Goal Provider Goal - CHANGES IN SKIN INTEGRITY STATUS RELATED TO PRESSURE INJURY MANAGEMENT WILL BE IDENTIFIED AND REPORTED TO THE PHYSICIAN FOR PROMPT INTERVENTION. PATIENT / CAREGIVER WILL VERBALIZE/DEMONSTRATE ADEQUATE KNOWLEDGE OF INTEGUMENTARY STATUS AND APPROPRIATE MEASURES TO PROMOTE SKIN INTEGRITY AND PREVENT INJURY BY EOE Goal Provider Goal - PATIENT WILL DEMONSTRATE IMPROVEMENT IN S/S OF WOUND INFECTION/DETERIORATION/STAGNATION TO AVOID HOSPITALIZATION. Goal Provider Goal - PATIENT / CAREGIVER WILL VERBALIZE/DEMONSTRATE ABILITY TO PERFORM WOUND CARE. WOUND STATUS WILL IMPROVE EVIDENCED BY A DECREASE IN SIZE, DRAINAGE, ABSENCE OF INFECTION, AND DECREASED PAIN BY EOE Encounters Start Date/Time End Date/Time Encounter Type Admission Type Attending [facility] Care Department Encounter ID Discharge Date Discharge Status Discharge Condition Discharge Reason Percent Goals Met 2024-03-13 00:00:00 2024-07-10 00:00:00 Outpatient RECERTIFIC ATION RADHA MAI [facility] [id number] 4.35
--- OUTSIDE RECORDS SUMMARY | 2024-05-23 03:31 | XMS_ITS | Encounter Summary ---
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 Gender Identity Not on file Sexual Orientation Not on file documented as of this encounter Plan of Treatment Not on file documented as of this encounter Procedures Procedure Name Priority Date/Time Associated Diagnosis Comments DIFFERENTIAL AUTO STAT 08/02/2021 3:3 0 AM CDT CBC WITH AUTO DIFFERENTIAL STAT 08/02/2021 3:30 AM CDT documented in this encounter Results * (ABNORMAL) Differential, auto (08/02/2021 3:30 AM CDT) Neutrophil abs 6.3 1.7 - 6.5 K/cumm [facility] Imm gran abs 0.0 0.0 - 0.1 K/cumm [facility] Lymphocyte abs 1.1 0.8 - 3.3 K/cumm [facility] Monocyte abs 1.0(H) 0.2 - 0.8 K/cumm [facility] Eosinophil abs 0.7(H) 0.0 - 0.5 K/cumm [facility] Basophil abs 0.0 0.0 - 0.1 K/cumm [facility] Neutrophil pct 68.9 % [facility] Comment: Interpretive Data Percent cell count reference ranges are not reported, since discordance with absolute values may lead to misinterpretation of CBC data. Current Interpretive Data was last revised on 2017. Imm gran pct 0.3 % [facility] Comment: Interpretive Data Percent cell count reference ranges are not reported, since discordance with absolute values may lead to misinterpretation of CBC data. Current Interpretive Data was last revised on 2017. Lymphocyte pct 11.7 % [facility] Comment: Interpretive Data Percent cell count reference ranges are not reported, since discordance with absolute values may lead to misinterpretation of CBC data. Current Interpretive Data was last revised on 2017. Monocyte pct 10.5 % [facility] Comment: Interpretive Data Percent cell count reference ranges are not reported, since discordance with absolute values may lead to misinterpretation of CBC data. Current Interpretive Data was last revised on 2017. Eosinophil pct 8.2 % [facility] Comment: Interpretive Data Percent cell count reference ranges are not reported, since discordance with absolute values may lead to misinterpretation of CBC data. Current Interpretive Data was last revised on 2017. Basophil pct 0.4 % [facility] Comment: Interpretive Data Percent cell count reference ranges are not reported, since discordance with absolute values may lead to misinterpretation of CBC data. Current Interpretive Data was last revised on 2017. Blood 08/02/2021 3:30 AM CDT 08/02/2021 5:46 AM CDT us Notinfile Unknown LAB BLOOD ORDERABLES Final Res ult [facility] Department of Laboratories [place], [place] [id number] * (ABNORMAL) CBC with auto differential (08/02/2021 3:30 AM CDT) WBC 9.1 3.8 - 9.9 K/cumm [facility] Hgb 10.7(L) 13.0 - 17.5 g/dL [facility] Hct 35.8(L) 38.9 - 50.3 % [facility] Plt 412(H) 150 - 400 K/cumm [facility] MPV 10.1 9.1 - 12.3 fL [facility] RBC 4.13(L) 4.30 - 5.80 M/cumm [facility] MCV 86.7 81.3 - 96.4 fL [facility] MCH 25.9(L) 27.1 - 33.3 pg [facility] MCHC 29.9(L) 32.3 - 35.7 g/dL [facility] RDW CV 15.2(H) 11.1 - 14.9 % [facility] RDW SD 48.0 35.7 - 48.1 fL [facility] NRBC abs 0.00 0.00 - 0.01 K/cumm [facility] Blood 08/02/2021 3:30 AM CDT 08/02/2021 5:46 AM CDT us Notinfile Unknown LAB BLOOD ORDERABLES Final Res ult [facility] Department of Laboratories [place], [place] [id number] documented in this encounter Visit Diagnoses Not on filedocumented in this encounter
--- OUTSIDE RECORDS SUMMARY | 2024-05-23 03:31 | XMS_ITS | Encounter Summary ---
Author Organization [facility] Healthcare Address [address] [place] [address] Care Team Providers Care Asset Management Lead Name Role Phone Unavailable Primary Care Provider Unavailabl e Encounter Details Date Type Department Care Team (Latest Contact Info) Description 06/01/2016 4:44 AM CHEMICAL OPERATOR - 06/01/2016 8:56 AM CHEMICAL OPERATOR Hospital Encounter [facility] John Frias MD [address] [place] [address] Diarrhea; Acute upper respiratory infection; Urinary tract infection; Other specified bacterial agents as the cause of diseases classified elsewhere; Essential (primary) hypertension; 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 Social History Tobacco Use Types Packs/Day Years Used Date Smoking Tobacco: Never Assessed Sex and Gender Information Value Date Recorded Sex Assigned at Not on file 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 Gender Identity Not on file Sexual Orientation Not on file documented as of this encounter Last Filed Vital Signs Vital Sign Reading Time Taken Comments Blood Pressure 139/87 06/01/2016 4:44 AM CHEMICAL OPERATOR Pulse 75 06/01/2016 4:44 AM CHEMICAL OPERATOR Temperature 36.7 ??C (98.1 ??F) 06/01/2016 4:44 AM CS T Respiratory Rate - - Oxygen Saturation 94% 06/01/2016 4:44 AM CHEMICAL OPERATOR Inhaled Oxygen Concentration - - Weight 127.5 kg (281 lb) 06/01/2016 4:44 AM CHEMICAL OPERATOR Height 170.2 cm (5' 7 ) 06/01/2016 4:44 AM CHEMICAL OPERATOR Body Mass Index 44.01 06/01/2016 4:44 AM CHEMICAL OPERATOR documented in this encounter Plan of Treatment Not on file documented as of this encounter Procedures Procedure Name Priority Date/Time Associated Diagnosis Comments MICROBIOLOGY SPECIMEN REPORT (CONVERTED) Routine 06/01/2016 5:30 AM CHEMICAL OPERATOR URINALYSIS AND REFLEX TO MICROSCOPIC AND CULTURE Routine 06/01/2016 5:30 AM CHEMICAL OPERATOR CBC WITH AUTO DIFFERENTIAL Routine 06/01/2016 5:28 AM CHEMICAL OPERATOR LIPASE Routine 06/01/2016 5:28 AM CHEMICAL OPERATOR AMYLASE Routine 06/01/2016 5:28 AM CHEMICAL OPERATOR COMPREHENSIVE METABOLIC PANEL Routine 06/01/2016 5:28 AM CHEMICAL OPERATOR documented in this encounter Results * Microbiology Specimen Report (Converted) (06/01/2016 5:30 AM CHEMICAL OPERATOR) 06/01/2016 5:30 AM CHEMICAL OPERATOR 06/01/2016 5:41 AM CHEMICAL OPERATOR [facility] HISTORICAL RESULTS - 06/01/2016 5:30 AM CHEMICAL OPERATOR Microbiology Specimen Report (Converted) SPECIMEN [id number] ?? COLLECTED: 2016-06-01 05:30:00 RB ?? REQ#: [id number] REQUESTING DR: Crystal Coleman MD ?? SOURCE: URINE ?? SP DESC: CLEAN CATC --- PROCEDURE --- ?--- RESULT --- ?? CULTURE URINE ??(Final) ??- ??Performed at [facility] ?* COLONY COUNT: >100,000 CFU/ml ?* MIXED GRAM POSITIVE ORGANISMS ? Culture yielded multiple organisms. This generally indicates ? contamination by normal periurethral zi at time of ? collection. No further testing will be performed on this ? specimen. Please resubmit if clinically indicated. - [facility] ? [address] ? [place] [address] ? Veto Gomez MD Procedure Note 08/06/2018 Microbiology Specimen Report (Converted) SPECIMEN [id number] COLLECTED: 2016-06-01 05:30:00 RB REQ#:[id number] REQUESTING DR: Crystal Coleman MD SOURCE: URINE SP DESC: CLEANCATC --- PROCEDURE --- --- RESULT --- CULTURE URINE (Final) - Performed at [facility] * COLONY COUNT: >100,000 CFU/ml * MIXED GRAM POSITIVE ORGANISMS Culture yielded multiple organisms. This generally indicates contamination by normal periurethral zi at time of collection. No further testing will be performed on this specimen. Please resubmit if clinically indicated. - [address] [address] Veto Gomez MD us Crystal Coleman MD LAB BLOOD ORDERABLES Giselle adams Result [email or web address] HISTORICAL RESULTS * (ABNORMAL) Urinalysis reflex to microscopic and culture (06/01/2016 5:30 AM CHEMICAL OPERATOR) Ur Collection Type CLEAN CATCH 06/01/2016 5:51 AM [facility] [employer] HISTORICAL RESULTS Ur Culture Indicated? C&S INDICATED 06/01/2016 5:51 AM [facility] [employer] HISTORICAL RESULTS Comment:Culture report to juanpablo rodrigez. Urine Color YELLOW YELLOW 06/01/2016 5:51 AM [facility] [employer] HISTORICAL RESULTS Urine Clarity CLEAR CLEAR 06/01/2016 5:51 AM [facility] [employer] HISTORICAL RESULTS Urine Glucose (UA) NORMAL NORMAL mg/dL 06/01/2016 5:51 AM [facility] [employer] HISTORICAL RESULTS Urine Bilirubin NEGATIVE NEGATIVE mg/dl 06/01/2016 5:51 AM [facility] [employer] HISTORICAL RESULTS Urine Ketones NEGATIVE NEGATIVE mg/dL 06/01/2016 5:51 AM [facility] [employer] HISTORICAL RESULTS Ur Specific [place] 1.023 1.005 - 1.025 06/01/2016 5:51 AM [facility] [employer] HISTORICAL RESULTS Urine Blood NEGATIVE NEGATIVE mg/dl 06/01/2016 5:51 AM [facility] [employer] HISTORICAL RESULTS Urine pH 6.0 5.0 - 8.0 06/01/2016 5:51 AM [facility] [employer] HISTORICAL RESULTS Urine Protein NEGATIVE NEGATIVE mg/dL Urine Urobilinogen NORMAL NORMAL mg/dL Urine Nitrite NEGATIVE NEGATIVE Ur Leukocyte Esterase 75(H) NEGATIVE Gurpreet/ul Ur Microscopic Review Indicated or Ordered Urine RBC 9 0 - 2 /HPF Urine WBC 36 0 - 2 /HPF Urine Mucus RARE /LPF Ur Squamous Epith Cells Rare /HPF 06/01/2016 5:30 AM CHEMICAL OPERATOR 06/01/2016 5:41 AM CHEMICAL OPERATOR Narrative [facility] HISTORICAL RESULTS - 06/01/2016 5:51 AM CHEMICAL OPERATOR Crystal Coleman MD LAB MICROBIOLOGY - GENERA L ORDERABLES Final Result [facility] HISTORICAL RESULTS * Lipase (06/01/2016 5:28 AM CHEMICAL OPERATOR) Lipase 52 13 - 60 U/L 06/01/2016 5:28 AM CHEMICAL OPERATOR 06/01/2016 5:34 AM CHEMICAL OPERATOR Crystal Coleman MD LAB BLOOD ORDERABLES Giselle l Result [facility] HISTORICAL RESULTS * (ABNORMAL) Comprehensive metabolic panel (06/01/2016 5:28 AM CHEMICAL OPERATOR) Sodium 139 135 - 145 mmol/L Potassium 3.9 3.3 - 5.1 mmol/L 06/01/2016 6:03 AM [employer] HISTORICAL RESULTS Chloride 102 96 - 108 mmol/L 06/01/2016 6:03 AM [employer] HISTORICAL RESULTS Carbon Dioxide 25 22 - 32 mmol/L 06/01/2016 6:03 AM [employer] HISTORICAL RESULTS Anion Gap 12 7 - 16 06/01/2016 6:03 AM [employer] HISTORICAL RESULTS Glucose 114(H) 70 - 100 mg/dL 06/01/2016 6:03 AM [employer] HISTORICAL RESULTS BUN 8 6 - 20 mg/dL 06/01/2016 6:03 AM [employer] HISTORICAL RESULTS Creatinine 0.7 0.5 - 1.3 mg/dL 06/01/2016 6:03 AM [employer] HISTORICAL RESULTS Comment: NOTE: Estimated GFR (Cockroft-Gault) will NOT be calculated unless patient Height and Weight were entered. Also, Kidney Disease Stage (GFR) and Estimated GFR (Cockroft-Gault) will NOT be calculated if Creatinine result is <0.2. Kidney Disease Stage > 90 mL/MIN 06/01/2016 6:03 AM [employer] HISTORICAL RESULTS Comment: NOTE; ??The GFR is an estimated value using the creatinine, sex, age, and race of the patient. THE Estimated Kidney Disease GFR is validated for AGES 18-70 YEARS STAGE ?mL/Min ?DESCRIPTION ??1 ?90 mL/min or more ?Normal or elevated GFR ??2 ? 60-89 mL/min ?Mildly decreased GFR ??3 ? 30-59 mL/min ?Moderately decreased GFR ??4 ? 15-29 mL/min ?Severely decreased GFR ??5 ? <15 mL/min ? Kidney failure or on dialysis @ Est GFR (Cockcroft-G) 198 ml/MIN Comment: Estimated GFR(Cockroft-Gault)is used to calculate patient medication dosage Calcium 9.1 8.6 - 10.0 mg/dL Total Protein 7.0 6.4 - 8.3 g/dL 06/01/2016 6:03 AM CHEMICAL OPERATOR [facility] HISTORICAL RESULTS Albumin 3.8 3.5 - 5.2 g/dL Globulin 3.2 2.3 - 3.5 gm/dL Albumin/Globulin Ratio 1.2 1.1 - 1.8 Total Bilirubin < 0.2 0.0 - 1.2 mg/dL AST 13 0 - 40 U/L ALT 12 0 - 41 U/L Alkaline Phosphatase 113 40 - 129 U/L 06/01/2016 5:28 AM CHEMICAL OPERATOR 06/01/2016 5:34 AM [facility] Crystal Coleman MD LAB BLOOD ORDERABLES Giselle l Result [facility] HISTORICAL RESULTS * CBC with auto differential (06/01/2016 5:28 AM [facility]) WBC 8.0 4.6 - 10.2 x10 3/ul RBC 5.29 4.11 - 5.71 x10 6/ul Hemoglobin 14.3 13.0 - 17.0 g/dl Hct 43.5 38.2 - 48.5 % 06/01/2016 5:43 AM [employer] HISTORICAL RESULTS MCV 82.2 80.0 - 97.0 fl 06/01/2016 5:43 AM CHEMICAL OPERATOR [facility] [employer] HISTORICAL RESULTS MCH 27.0 27.0 - 31.2 pg 06/01/2016 5:43 AM CHEMICAL OPERATOR [facility] HISTORICAL RESULTS MCHC 32.9 31.8 - 35.4 g/dl 06/01/2016 5:43 AM [employer] [facility] [employer] HISTORICAL RESULTS RDW 13.8 11.6 - 14.8 % 06/01/2016 5:43 AM CHEMICAL OPERATOR [facility] [employer] HISTORICAL RESULTS Plt Count 329 124 - 400 x10 3/ul 06/01/2016 5:43 AM CHEMICAL OPERATOR [facility] [employer] HISTORICAL RESULTS MPV 9.2 7.4 - 10.4 fl 06/01/2016 5:43 AM [employer] HISTORICAL RESULTS Neut % 58.1 37.0 - 85.0 % 06/01/2016 5:43 AM [employer] HISTORICAL RESULTS Immature Gran % 0.8 0.0 - 3.0 % 06/01/2016 5:43 AM [employer] HISTORICAL RESULTS Lymph % 25.5 5.0 - 45.0 % 06/01/2016 5:43 AM [employer] HISTORICAL RESULTS Murray % 9.6 3.0 - 15.0 % 06/01/2016 5:43 AM [employer] HISTORICAL RESULTS Eos % 5.6 0.0 - 7.0 % 06/01/2016 5:43 AM [employer] [facility] [employer] HISTORICAL RESULTS Baso % 0.4 0.0 - 2.0 % 06/01/2016 5:43 AM [employer] HISTORICAL RESULTS Absolute Neuts (auto) 4.7 1.7 - 8.7 x10 3/ul 06/01/2016 5:43 AM [employer] HISTORICAL RESULTS Immature Gran # 0.1 0.0 - 0.3 x10 3/ul 06/01/2016 5:43 AM [employer] HISTORICAL RESULTS Absolute Lymphs (auto) 2.0 0.2 - 4.6 x10 3/ul 06/01/2016 5:43 AM [employer] HISTORICAL RESULTS Absolute Monos (auto) 0.8 0.1 - 1.5 x10 3/ul 06/01/2016 5:43 AM [employer] HISTORICAL RESULTS Absolute Eos (auto) 0.5 0.0 - 0.7 x10 3/ul 06/01/2016 5:43 AM CHEMICAL OPERATOR [facility] HISTORICAL RESULTS Absolute Basos (auto) 0.0 0.0 - 0.2 x10 3/ul 06/01/2016 5:43 AM CHEMICAL OPERATOR [facility] HISTORICAL RESULTS 06/01/2016 5:28 AM CHEMICAL OPERATOR 06/01/2016 5:34 AM CHEMICAL OPERATOR Crystal Coleman MD LAB BLOOD ORDERABLES Giselle l Result Performing Organization Address [facility] Co de Phone Number [facility] HISTORICAL RESULTS * Amylase (06/01/2016 5:28 AM CHEMICAL OPERATOR) Amylase 72 28 - 100 U/L 06/01/2016 5:28 AM CHEMICAL OPERATOR 06/01/2016 5:34 AM CHEMICAL OPERATOR Crystal Coleman MD LAB BLOOD ORDERABLES Giselle l Result [facility] HISTORICAL RESULTS documented in this encounter Visit Diagnoses Diagnosis Diarrhea Acute upper respiratory infection Acute upper respiratory infections of unspecified site Urinary tract infection Urinary tract infection, site not specified Other specified bacterial agents as the cause of diseases classified elsewhere Essential (primary) hypertension Unspecified essential hypertension 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
--- OUTSIDE RECORDS SUMMARY | 2024-05-23 03:31 | XMS_ITS | Encounter Summary ---
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 Social History Tobacco Use Types Packs/Day Years Used Date Smoking Tobacco: Never Assessed Sex and Gender Information Value Date Recorded Sex Assigned at Not on file 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 Gender Identity Not on file Sexual Orientation Not on file documented as of this encounter Last Filed Vital Signs Vital Sign Reading Time Taken Comments Blood Pressure 127/79 02/19/2016 2:57 PM CDT Pulse 88 02/19/2016 2:57 PM CDT Temperature 37.1 ??C (98.8 ??F) 02/19/2016 2:57 PM CD T Respiratory Rate - - Oxygen Saturation 97% 02/19/2016 2:57 PM CDT Inhaled Oxygen Concentration - - Weight 127.5 kg (281 lb) 02/19/2016 2:57 PM CDT Height 172.7 cm (5' 8 ) 02/19/2016 2:57 PM CDT Body Mass Index 42.73 02/19/2016 2:57 PM CDT documented in this encounter Plan of Treatment Not on file documented as of this encounter Procedures Procedure Name Priority Date/Time Associated Diagnosis Comments XR CHEST PA LATERAL 2 VIEWS Routine 02/19/2016 12:00 AM CDT documented in this encounter Results * XR Chest Pa Lateral 2 Views (02/19/2016 12:00 AM CDT) Anatomical Region Laterality Modality Body, Chest N/A Radiographic Sera ging 02/19/2016 Impressions 02/19/2016 3:53 PM CDT ??No active lung disease. No focal infiltrate or evidence of pneumonia. THIS IS AN ELECTRONICALLY VERIFIED REPORT 02/19/2016 3:49 PM: ??Dion Peralta M.D. ?? Dion Peralta M.D. NC:nc 03:49 PM 03:49 PM MANSI [EOD] Narrative 02/19/2016 3:53 PM CDT EXAMINATION: PA and Lateral Chest Xray. HISTORY: ??Cough with shortness of breath for 2 days with fever COMPARISON: ??PA and Lateral chest xray performed on 12/15/13 FINDINGS: The heart size is normal. No radiographic evidence of an effusion or pneumothorax. No evidence of ??focal consolidation or infiltrate. ??No concerning pulmonary nodules are seen. The bony thorax is intact. Procedure Note Provider, MD Miguel Angel - 10/02/2020 EXAMINATION: PA and Lateral Chest Xray. HISTORY: Cough with shortness of breath for 2 days with fever COMPARISON: PA and Lateral chest xray performed on 12/15/13 FINDINGS: The heart size is normal. No radiographic evidence of an effusion or pneumothorax. No evidence of focal consolidation or infiltrate. No concerning pulmonary nodules are seen. The bony thorax is intact. IMPRESSION: No active lung disease. No focal infiltrate or evidence of pneumonia. THIS IS AN ELECTRONICALLY VERIFIED REPORT 02/19/2016 3:49 PM: Dion Peralta M.D. Dion Peralta M.D. 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
--- OUTSIDE RECORDS SUMMARY | 2024-05-23 03:31 | XMS_ITS | Encounter Summary ---
Author Organization [facility] Healthcare Address [address] [place] [address] Care Team Providers Care Medical Receptionist Medical Assistant Name Role Phone No, Physician Primary Care Provider [phone] Encounter Details Date Type Department Care Team (Latest Contact Info) Description 11/09/2021 4:00 AM CDT - 11/09/2021 11:59 PM CDT Hospital Encounter [address] [address] Discharge Disposition: Discharge to home or self care Social History Tobacco Use Types Packs/Day Years Used Date Smoking Tobacco: Never Assessed Sex and Gender Information Value Date Recorded Sex Assigned at Not on file 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 Gender Identity Not on file Sexual Orientation Not on file documented as of this encounter Discharge Disposition Disposition Code Departure Means Destination Discharge to home or self care documented in this encounter Plan of Treatment Not on file documented as of this encounter Procedures Procedure Name Priority Date/Time Associated Diagnosis Comments EGFR Routine 11/09/2021 4:00 AM CDT DIFFERENTIAL AUTO Routine 11/09/2021 4:0 0 AM CDT COMPREHENSIVE METABOIC PANEL, SERUM Routine 11/09/2021 4:00 AM CDT CBC WITH AUTO DIFFERENTIAL Routine 11/09/2021 4:00 AM CDT documented in this encounter Results * eGFR (11/09/2021 4:00 AM CDT) eGFR >90 90 - 130 mL/min/1. 73 m2 [facility] Comment: Interpretive Data Reference Interval Normal [...] interpretive data was last reviewed 2021. Blood 11/09/2021 4:00 AM CDT 11/09/2021 7:40 AM CDT us Davon Laws MD LAB BLOOD ORDERABLES Final Res ult [facility] Department of Laboratories [place], [place] [id number] * (ABNORMAL) Comprehensive metabolic panel, serum (11/09/2021 4:00 AM CDT) Sodium 141 135 - 145 mmol/L [facility] Potassium, sr 4.4 3.6 - 5.2 mmol/L [facility] Chloride 103 97 - 110 mmol/L [facility] CO2 28 22 - 32 mmol/L [facility] Anion gap 10 2 - 15 mmol/L [facility] BUN 26(H) 8 - 25 mg/dL [facility] Creatinine 1.01 0.80 - 1.30 mg/dL [facility] Glucose 122 70 - 199 mg/dL [facility] Comment: Interpretive Data Fasting glucose >/= [...] 2017. Calcium 10.3 8.5 - 10.3 mg/dL [facility] Bilirubin, total 0.2 0.1 - 1.2 mg/dL [facility] Protein, sr 7.1 6.2 - 8.2 g/dL [facility] Albumin 3.6 3.5 - 5.0 g/dL [facility] Alk phos 145(H) 40 - 130 Units/L [facility] ALT 30 7 - 55 Units/L [facility] AST 20 10 - 50 Units/L [facility] Blood 11/09/2021 4:00 AM CDT 11/09/2021 7:38 AM CDT us Davon Laws MD LAB BLOOD ORDERABLES Final Res ult [facility] Department [place] [address] * Differential, auto (11/09/2021 4:00 AM CDT) Neutrophil abs 3.3 1.7 - 6.5 K/cumm [facility] Imm gran abs 0.0 0.0 - 0.1 K/cumm [facility] Lymphocyte abs 1.2 0.8 - 3.3 K/cumm [facility] Monocyte abs 0.8 0.2 - 0.8 K/cumm [facility] Eosinophil abs 0.0 0.0 - 0.5 K/cumm [facility] Basophil abs 0.0 0.0 - 0.1 K/cumm [facility] Neutrophil pct 61.5 % [facility] Comment: Interpretive Data Percent cell count reference ranges are not reported, since discordance with absolute values may lead to misinterpretation of CBC data. Current Interpretive Data was last revised on 2017. Imm gran pct 0.4 % [facility] Comment: Interpretive Data Percent cell count reference ranges are not reported, since discordance with absolute values may lead to misinterpretation of CBC data. Current Interpretive Data was last revised on 2017. Lymphocyte pct 22.3 % [facility] Comment: Interpretive Data Percent cell count reference ranges are not reported, since discordance with absolute values may lead to misinterpretation of CBC data. Current Interpretive Data was last revised on 2017. Monocyte pct 14.8 % [facility] Comment: Interpretive Data Percent cell count reference ranges are not reported, since discordance with absolute values may lead to misinterpretation of CBC data. Current Interpretive Data was last revised on 2017. Eosinophil pct 0.6 % [facility] Comment: Interpretive Data Percent cell count reference ranges are not reported, since discordance with absolute values may lead to misinterpretation of CBC data. Current Interpretive Data was last revised on 2017. Basophil pct 0.4 % [facility] Comment: Interpretive Data Percent cell count reference ranges are not reported, since discordance with absolute values may lead to misinterpretation of CBC data. Current Interpretive Data was last revised on 2017. Blood 11/09/2021 4:00 AM CDT 11/09/2021 7:38 AM CDT us Davon Laws MD LAB BLOOD ORDERABLES Final Res ult [facility] Department [place] [address] * (ABNORMAL) CBC with auto differential (11/09/2021 4:00 AM CDT) WBC 5.3 3.8 - 9.9 K/cumm [facility] Hgb 10.9(L) 13.0 - 17.5 g/dL [facility] Hct 33.5(L) 38.9 - 50.3 % [facility] Plt 299 150 - 400 K/cumm [facility] MPV 10.3 9.1 - 12.3 fL [facility] RBC 3.97(L) 4.30 - 5.80 M/cumm [facility] MCV 84.4 81.3 - 96.4 fL [facility] MCH 27.5 27.1 - 33.3 pg [facility] MCHC 32.5 32.3 - 35.7 g/dL [facility] RDW CV 13.7 11.1 - 14.9 % [facility] RDW SD 42.5 35.7 - 48.1 fL [facility] NRBC abs 0.00 0.00 - 0.01 K/cumm [facility] Blood 11/09/2021 4:00 AM CDT 11/09/2021 7:38 AM CDT us Davon Laws MD LAB BLOOD ORDERABLES Final Res ult [facility] [place] [address] documented in this encounter Visit Diagnoses Not on filedocumented in this encounter Care Teams Medical Receptionist Medical Assistant Relationship Specialty Start Date End Date No, Physician PCP - General 11/08/21 documented as of this encounter
--- OUTSIDE RECORDS SUMMARY | 2024-05-23 03:31 | XMS_ITS | Encounter Summary ---
Author Organization [facility] Healthcare Address [address] [place] [address] Care Team Providers Care Specialty Sales Representative Name Role Phone Unavailable Primary Care Provider Luther e Encounter Details Date Type Department Care Team (Latest Contact Info) Description 07/22/2014 4:28 PM CDT - 07/22/2014 6:36 PM CDT Hospital Encounter 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 Gender Identity Not on file Sexual Orientation Not on file documented as of this encounter Last Filed Vital Signs Vital Sign Reading Time Taken Comments Blood Pressure 116/75 07/22/2014 4:34 PM CDT Pulse 86 07/22/2014 4:34 PM CDT Temperature 36.7 ??C (98 ??F) 07/22/2014 4:34 PM CDT Respiratory Rate - - Oxygen Saturation 96% 07/22/2014 4:34 PM CDT Inhaled Oxygen Concentration - - Weight 127 kg (280 lb) 07/22/2014 4:34 PM CDT Height 170.2 cm (5' 7 ) 07/22/2014 4:34 PM CDT Body Mass Index 43.85 07/22/2014 4:34 PM CDT documented in this encounter Plan of Treatment Not on file documented as of this encounter Visit Diagnoses Diagnosis Low back pain Lumbago Other acute pain Essential hypertension Unspecified essential hypertension Encounter for long-term (current) use of other medications Tobacco use disorder documented in this encounter
--- OUTSIDE RECORDS SUMMARY | 2024-05-23 03:31 | XMS_ITS | Encounter Summary ---
Author Organization [facility] Healthcare Address [address] [place] [address] Care Team Providers Care Marine Radio Installer And Servicer Name Role Phone Unavailable Primary Care Provider Luther e Encounter Details Date Type Department Care Team (Latest Contact Info) Description 09/22/2013 3:22 PM CDT - 09/22/2013 5:15 PM CDT Hospital Encounter [facility] Iva Young, MULE PACKER [address] [place] [address] Low back pain; Essential hypertension; Encounter for long-term (current) use of other medications Social History Tobacco Use Types Packs/Day Years Used Date Smoking Tobacco: Never Assessed Sex and Gender Information Value Date Recorded Sex Assigned at Not on file 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 Gender Identity Not on file Sexual Orientation Not on file documented as of this encounter Last Filed Vital Signs Vital Sign Reading Time Taken Comments Blood Pressure 150/78 09/22/2013 3:31 PM CDT Pulse 113 09/22/2013 3:31 PM CDT Temperature 36.8 ??C (98.2 ??F) 09/22/2013 3:31 PM CD T Respiratory Rate - - Oxygen Saturation 96% 09/22/2013 3:31 PM CDT Inhaled Oxygen Concentration - - Weight 129.7 kg (286 lb) 09/22/2013 3:31 PM CDT Height 170.2 cm (5' 7 ) 09/22/2013 3:31 PM CDT Body Mass Index 44.79 09/22/2013 3:31 PM CDT documented in this encounter Plan of Treatment Not on file documented as of this encounter Procedures Procedure Name Priority Date/Time Associated Diagnosis Comments XR SPINE LUMBAR 2 OR 3 VIEWS Routine 09/22/2013 12:00 AM CDT documented in this encounter Results * XR Spine Lumbar 2 or 3 Views (09/22/2013 12:00 AM CDT) Anatomical Region Laterality Modality Spine N/A Radiographic Sera ging 09/22/2013 Impressions 09/22/2013 4:32 PM CDT ??No acute bony abnormality of lumbar spine. THIS IS AN ELECTRONICALLY VERIFIED REPORT 09/22/2013 4:28 PM: ??Shaw Chand M.D. Shaw Chand M.D. CH: 04:28 PM T: :28 PM [facility] [EOD] Narrative 09/22/2013 4:32 PM CDT EXAMINATION: ??Lumbar spine series. HISTORY: ??Injury and pain. TECHNIQUE: ??Frontal, lateral, and spot L5-S1 view lumbar spine. COMPARISON: ??04/27/2012. FINDINGS: ??5 non-rib bearing lumbar vertebral bodies. ??Vertebral body height and alignment are normal. ??Disc spaces are within normal limits. ??No aggressive osseous lesions. Procedure Note Provider, MD Miguel Angel - 10/02/2020 EXAMINATION: Lumbar spine series. HISTORY: Injury and pain. TECHNIQUE: Frontal, lateral, and spot L5-S1 view lumbar spine. COMPARISON: 04/27/2012. FINDINGS: 5 non-rib bearing lumbar vertebral bodies. Vertebral bodyheight and alignment are normal. Disc spaces are within normal limits. No aggressive osseous lesions. IMPRESSION: No acute bony abnormality of lumbar spine. THIS IS AN ELECTRONICALLY VERIFIED REPORT 09/22/2013 4:28 PM: Shaw Chand M.D. Shaw Chand M.D. CH:[place] 04:28 PM 04:28 PM [facility] [EOD] Georgie MORIN IMG XR PROCEDURES Final Resul t documented in this encounter Visit Diagnoses Diagnosis Low back pain Lumbago Essential hypertension Unspecified essential hypertension Encounter for long-term (current) use of other medications documented in this encounter
--- OUTSIDE RECORDS SUMMARY | 2024-05-23 03:32 | XMS_ITS | Clinical Summary ---
Author Organization Unknown Care Team Providers Care Plant Tech Name Role Phone ARSEN CALVILLO ROLLER INSPECTOR AND MENDER, ANTHONY Unavailable Nasrin kaley SALGUERO PT, HARLEY Unavailable Unavailable CHANDA PURCHASER, CHIVO Unavailable Unavailabl e CARISSA OT, AGUSTIN Unavailable Unavailable PAU RN, RADHA Unavailable Unavailabl e BO PHANN, ELICIA Unavailable Unavailable Payers Payer Name Policy Type Policy Number Effective Date Expira tion Date MEDICARE.[facility] [id number] Problems Condition Name Condition Details Condition Category [...] CONSTIPATION , UNSPECIFIED Active 05-17 00:00: 00 SNF (CURRENT) USE OF ASPIRIN Active 2022-05 00:00: [...] 2021-05 00:00: 00 03-13 00:00 :00 No [id number] Per instruc tions Per instructio ns (route: oral) Med Classific ation: Gastroint estinal Therapy Agents senna 8.6 mg tablet 2021-05 00:00: 00 Yes [id number] CONSTIPATIO N 1 tablet DAILY 1 tablet DAILY (route: oral) Med Classific ation: Gastroint estinal Therapy Agents lansoprazol e 30 mg delayed release,dis integrating tablet 2021-05 00:00: 00 03-13 00:00 :00 No [id number] Per instruc tions Per instructio ns (route: oral) Med Classific ation: Gastroint estinal Therapy Agents ondansetron 4 mg disintegrat ing tablet 2021-05 00:00: 00 03-13 00:00 :00 No [id number] Per instruc tions Per instructio ns (route: oral) Med Classific ation: Gastroint estinal Therapy Agents Docu 50 mg/5 mL oral liquid 2021-05 00:00: 00 Yes [id number] CONSTIPATIO N 100 mg DAILY 100 mg DAILY (route: oral) Med Classific ation: Gastroint estinal Therapy Agents carvedilol 12.5 mg tablet 2021-05 00:00: 00 Yes [id number] BLOOD PRESSURE 1 tablet 2 TIMES DAILY 1 tablet 2 TIMES DAILY (route: oral) Med Classific ation: Cardiovas cular Therapy Agents famotidine 20 mg tablet 2021-05 00:00: 00 03-13 00:00 :00 No [id number] Per instruc tions Per instructio ns (route: oral) Med Classific ation: Gastroint estinal Therapy Agents glycopyrrol ate 1 mg tablet 2021-05 00:00: 00 03-13 00:00 :00 No [id number] Per instruc tions Per instructio ns (route: oral) Med Classific ation: Gastroint estinal Therapy Agents levetiracet am 1,000 mg tablet 2021-05 00:00: 00 03-13 00:00 :00 No [id number] Per instruc tions Per instructio ns (route: oral) Med Classific ation: Central Nervous System Agents nadolol 40 mg tablet 2021-05 00:00: 00 03-13 00:00 :00 No [id number] Per instruc tions Per instructio ns (route: oral) Med Classific ation: Cardiovas cular Therapy Agents scopolamine 1 mg over 3 days transdermal patch 2021-05 00:00: 00 Yes [id number] NAUSEA AND VOMITING 1 patch,t ransder mal 3 day EVERY 72 HOURS 1 patch,alanis sdermal 3 day EVERY 72 HOURS (route: transderma l) Med Classific ation: Gastroint estinal Therapy Agents chlorhexidi ne gluconate 0.12 % mouthwash 2021-05 00:00: 00 03-13 00:00 :00 No [id number] Per instruc tions Per instructio ns (route: mucous membrane) Med Classific ation: Mouth-Thr oat-Denta l - Preparati ons Aspirin Childrens 81 mg chewable tablet 2023-05 00:00: 00 Yes [id number] BLOOD THINNER 1 tablet DAILY 1 tablet DAILY (route: oral) Alternate Route: GASTROSTO MY TUBE. Med Classific ation: Hematolog ical Agents baclofen 5 mg tablet 2023-05 00:00: 00 Yes [id number] MUSCLE RELAXER 1 tablet 3 TIMES DAILY 1 tablet 3 TIMES DAILY (route: oral) Alternate Route: GASTROSTO MY TUBE. Med Classific ation: Locomotor System Multiple Vitamin-Min erals tablet 2023-05 00:00: 00 Yes [id number] SUPPLEMENT 1 tablet DAILY 1 tablet DAILY [...] TION MANAGEMENT; RN TO ASSESS AND OBSERVE, RADIO ADJUSTER/PASSENGER CONDUCTOR TO OBSERVE FALL RISK FACTORS AND EDUCATE PATIENT/CAREGIVER ON STRATEGIES TO MINIMIZE THE RISK OF FALLING. [code = FALL REDUCTION MANAGEMENT; RN TO ASSESS AND OBSERVE, RADIO ADJUSTER/PASSENGER CONDUCTOR TO OBSERVE FALL RISK FACTORS AND EDUCATE PATIENT/CAREGIVER ON STRATEGIES TO MINIMIZE THE RISK OF FALLING.] Future Scheduled Test RN/RADIO ADJUSTER/PASSENGER CONDUCTOR TO PERFORM/TEACH PATIENT/CAREGIVER WOUND CARE PRESSURE INJURY TO RIGHT HEEL IRRIGATE/CLEANSE WITH WOUND CLEANSER, DRY WITH 4X4 GAUZE APPLY MEDIHONEY TO WOUND BED , MAY APPLY SKIN BARRIER TO PERIWOUND PRN TO PREVENT MACERATION AND PROTECT PERIWOUND COVER WITH FOAM DRESSING CHANGE DRESSING EVERY 2 TIMEE A WEEK AND PRN FOR SOILED DRESSINGS [code = RN/RADIO ADJUSTER/PASSENGER CONDUCTOR TO PERFORM/TEACH PATIENT/CAREGIVER WOUND CARE PRESSURE INJURY [...] CONSULTING PHYSICIANS RN TO OBSERVE AND ASSESS, RADIO ADJUSTER/PASSENGER CONDUCTOR TO OBSERVE FOR RISK FOR FALLS AND INSTRUCT IN FALL PREVENTION, HOME SAFETY, MEDICATION MANAGEMENT, INFECTION PREVENTION, AND NUTRITION MANAGEMENT. RN/RADIO ADJUSTER/PASSENGER CONDUCTOR NURSE MAY PERFORM O2 SATURATION LEVEL ON ADMISSION AND PRN FOR EVERY VISIT FOR RN TO ASSESS/RADIO ADJUSTER TO OBSERVE PATIENT, WITH NOTIFICATION TO THE PHYSICIAN IF SATURATION IS 90% IN THE ABSENCE OF MORE SPECIFIC PARAMETERS FROM THE PHYSICIAN. AGENCY MAY PERFORM A RESUMPTION OF CARE VISIT FOLLOWING ANY HOSPITAL ADMISSION. RN/RADIO ADJUSTER/PASSENGER CONDUCTOR TO MONITOR CO-MORBID CONDITIONS LISTED ON THE PLAN OF CARE AND ANY NEW CONDITIONS THAT PRESENT THEMSELVES DURING THIS EPISODE TO IDENTIFY CHANGES AND INTERVENE TO MINIMIZE COMPLICATIONS. [code = RN TO OBSERVE, ASSESS, EVALUATE, AND DEVELOP AN INDIVIDUALIZED PLAN OF CARE. AGENCY MAY ACCEPT ORDERS FROM CONSULTING PHYSICIANS RN TO OBSERVE AND ASSESS, RADIO ADJUSTER/PASSENGER CONDUCTOR TO OBSERVE FOR RISK FOR FALLS AND INSTRUCT IN FALL PREVENTION, HOME SAFETY, MEDICATION MANAGEMENT, INFECTION PREVENTION, AND NUTRITION MANAGEMENT. RN/RADIO ADJUSTER/PASSENGER CONDUCTOR NURSE MAY PERFORM O2 SATURATION LEVEL ON ADMISSION AND PRN FOR EVERY VISIT FOR RN TO ASSESS/RADIO ADJUSTER TO OBSERVE PATIENT, WITH NOTIFICATION TO THE PHYSICIAN IF SATURATION IS 90% IN THE ABSENCE OF MORE SPECIFIC PARAMETERS FROM THE PHYSICIAN. AGENCY MAY PERFORM A RESUMPTION OF CARE VISIT FOLLOWING ANY HOSPITAL ADMISSION. RN/RADIO ADJUSTER/PASSENGER CONDUCTOR TO MONITOR CO-MORBID CONDITIONS LISTED ON THE PLAN OF CARE AND ANY NEW CONDITIONS THAT PRESENT THEMSELVES DURING THIS EPISODE TO IDENTIFY CHANGES AND INTERVENE TO MINIMIZE COMPLICATIONS.] Future Scheduled Test RISK FOR H OSPITALIZATION; RN TO ASSESS/TEACH, PASSENGER CONDUCTOR/RADIO ADJUSTER TO OBSERVE/TEACH PATIENT/CAREGIVER ON RISK FOR HOSPITALIZATION/EMERGENCY ROOM VISITS, TEACH SIGNS AND SYMPTOMS THAT PUT PATIENT AT RISK, WHEN TO NOTIFY NURSE/PHYSICIAN OF COMPLICATIONS/DECLINE, AND WHEN TO CALL 911. [code = RISK FOR HOSPITALIZATION; RN TO ASSESS/TEACH, PASSENGER CONDUCTOR/RADIO ADJUSTER TO OBSERVE/TEACH PATIENT/CAREGIVER ON RISK FOR HOSPITALIZATION/EMERGENCY ROOM VISITS, TEACH SIGNS AND SYMPTOMS THAT PUT PATIENT AT RISK, WHEN TO NOTIFY NURSE/PHYSICIAN OF COMPLICATIONS/DECLINE, AND WHEN TO CALL 911.] Future Scheduled Test PAIN MANAG EMENT; RN TO ASSESS AND TEACH, PASSENGER CONDUCTOR/RADIO ADJUSTER TO OBSERVE AND TEACH AND PROVIDE EDUCATION ON PAIN MANAGEMENT TECHNIQUES. [code = PAIN MANAGEMENT; RN TO ASSESS AND TEACH, PASSENGER CONDUCTOR/RADIO ADJUSTER TO OBSERVE AND TEACH AND PROVIDE EDUCATION ON PAIN MANAGEMENT TECHNIQUES.] Future Scheduled Test PRN VISITS ; NUMBER OF RN/RADIO ADJUSTER/PASSENGER CONDUCTOR VISITS: 2 RN/RADIO ADJUSTER/PASSENGER CONDUCTOR TO PERFORM: WOUND OR RESPIRATORY MANAGEMENT FOR THE FOLLOWING REASONS: COMPLICATIONS [code = PRN VISITS; NUMBER OF RN/RADIO ADJUSTER/PASSENGER CONDUCTOR VISITS: 2 RN/RADIO ADJUSTER/PASSENGER CONDUCTOR TO PERFORM: WOUND OR RESPIRATORY MANAGEMENT FOR THE FOLLOWING REASONS: COMPLICATIONS ] Future Scheduled Test GENITOURIN ANNIE MANAGEMENT; RN TO ASSESS AND TEACH, RADIO ADJUSTER/PASSENGER CONDUCTOR TO OBSERVE AND TEACH RELATED TO ALTERED GENITOURINARY STATUS TO MINIMIZE COMPLICATIONS AND REDUCE HOSPITALIZATION. [code = GENITOURINARY MANAGEMENT; RN TO ASSESS AND TEACH, RADIO ADJUSTER/PASSENGER CONDUCTOR TO OBSERVE AND TEACH RELATED TO ALTERED GENITOURINARY STATUS TO MINIMIZE COMPLICATIONS AND REDUCE HOSPITALIZATION.] Future Scheduled Test URINARY CU LTURE AND SENSITIVITY PROTOCOL UP TO 2 PRN RN/RADIO ADJUSTER/PASSENGER CONDUCTOR VISITS MAY BE PERFORMED FOR S/S OF UTI. RN TO ASSESS, RADIO ADJUSTER/PASSENGER CONDUCTOR TO OBSERVE INITIATION OF UTI PROTOCOL. RN/PASSENGER CONDUCTOR/RADIO ADJUSTER TO INSTRUCT PATIENT AND/OR CAREGIVER ON S/S OF UTI TO REPORT TO RN/RADIO ADJUSTER/PASSENGER CONDUCTOR IF NEW OR WORSENING SYMPTOMS. DRINK PLENTY OF WATER THROUGHOUT THE DAY TO MAINTAIN HYDRATION (UNLESS CONTRAINDICATED.) URINATE WHEN THE URGE IS FELT, DO NOT WAIT. WASH GENITALS DAILY. WIPE FROM FRONT TO BACK AFTER HAVING A BOWEL MOVEMENT. RN/PASSENGER CONDUCTOR/RADIO ADJUSTER TO OBTAIN UA WITH C/S VIA CLEAN CATCH URINE AND IF UNABLE TO OBTAIN MAY PERFORM AN IN AND OUT CATH. IF PATIENT HAS INDWELLING CATHETER MAY OBTAIN FROM SAMPLING PORT. NOTIFY PROVIDER OF RESULTS AND OBTAIN FURTHER ORDERS. [code = URINARY CULTURE AND SENSITIVITY PROTOCOL UP TO 2 PRN RN/RADIO ADJUSTER/PASSENGER CONDUCTOR VISITS MAY BE PERFORMED FOR S/S OF UTI. RN TO ASSESS, RADIO ADJUSTER/PASSENGER CONDUCTOR TO OBSERVE INITIATION OF UTI PROTOCOL. RN/PASSENGER CONDUCTOR/RADIO ADJUSTER TO INSTRUCT PATIENT AND/OR CAREGIVER ON S/S OF UTI TO REPORT TO RN/RADIO ADJUSTER/PASSENGER CONDUCTOR IF NEW OR WORSENING SYMPTOMS. DRINK PLENTY OF WATER THROUGHOUT THE DAY TO MAINTAIN HYDRATION (UNLESS CONTRAINDICATED.) URINATE WHEN THE URGE IS FELT, DO NOT WAIT. WASH GENITALS DAILY. WIPE FROM FRONT TO BACK AFTER HAVING A BOWEL MOVEMENT. RN/PASSENGER CONDUCTOR/RADIO ADJUSTER TO OBTAIN UA WITH C/S VIA CLEAN CATCH URINE AND IF UNABLE TO OBTAIN MAY PERFORM AN IN AND OUT CATH. IF PATIENT HAS INDWELLING CATHETER MAY OBTAIN FROM SAMPLING PORT. NOTIFY PROVIDER OF RESULTS AND OBTAIN FURTHER ORDERS.] Future Scheduled Test URINARY MO LECULAR TESTING PROTOCOL UP TO 2 PRN RN/RADIO ADJUSTER/PASSENGER CONDUCTOR VISITS MAY BE PERFORMED FOR S/S OF UTI. RN TO ASSESS, RADIO ADJUSTER/PASSENGER CONDUCTOR TO OBSERVE INITIATION OF UTI PROTOCOL. RN/PASSENGER CONDUCTOR/RADIO ADJUSTER TO INSTRUCT PATIENT AND/OR CAREGIVER ON S/S OF UTI TO REPORT TO RN/PASSENGER CONDUCTOR/RADIO ADJUSTER IF NEW OR WORSENING SYMPTOMS. DRINK PLENTY OF WATER THROUGHOUT THE DAY TO MAINTAIN HYDRATION (UNLESS CONTRAINDICATED.) URINATE WHEN THE URGE IS FELT, DO NOT WAIT. WASH GENITALS DAILY. WIPE FROM FRONT TO BACK AFTER HAVING A BOWEL MOVEMENT. RN/PASSENGER CONDUCTOR/RADIO ADJUSTER TO OBTAIN MOLECULAR URINE TESTING BY OPTION 1 OR OPTION 2 (OPTION 1) RN/PASSENGER CONDUCTOR/RADIO ADJUSTER TO OBTAIN U/A WITH REFLEX TO UTI PANEL (MOLECULAR) VIA CLEAN CATCH URINE AND IF UNABLE TO OBTAIN MAY PERFORM AN IN AND OUT CATH. IF PATIENT HAS INDWELLING CATHETER MAY OBTAIN FROM SAMPLING PORT. (OPTION 2) RN/PASSENGER CONDUCTOR/RADIO ADJUSTER TO OBTAIN UTI PANEL (MOLECULAR) VIA SWAB COLLECTION METHOD FROM ADULT BRIEF/DIAPER OR PAD IF PATIENT IS INCONTINENT. NOTIFY PROVIDER OF RESULTS AND OBTAIN FURTHER ORDERS. [code = URINARY MOLECULAR TESTING PROTOCOL UP TO 2 PRN RN/RADIO ADJUSTER/PASSENGER CONDUCTOR VISITS MAY BE PERFORMED FOR S/S OF UTI. RN TO ASSESS, RADIO ADJUSTER/PASSENGER CONDUCTOR TO OBSERVE INITIATION OF UTI PROTOCOL. RN/PASSENGER CONDUCTOR/RADIO ADJUSTER TO INSTRUCT PATIENT AND/OR CAREGIVER ON S/S OF UTI TO REPORT TO RN/PASSENGER CONDUCTOR/RADIO ADJUSTER IF NEW OR WORSENING SYMPTOMS. DRINK PLENTY OF WATER THROUGHOUT THE DAY TO MAINTAIN HYDRATION (UNLESS CONTRAINDICATED.) URINATE WHEN THE URGE IS FELT, DO NOT WAIT. WASH GENITALS DAILY. WIPE FROM FRONT TO BACK AFTER HAVING A BOWEL MOVEMENT. RN/PASSENGER CONDUCTOR/RADIO ADJUSTER TO OBTAIN MOLECULAR URINE TESTING BY OPTION 1 OR OPTION 2 (OPTION 1) RN/PASSENGER CONDUCTOR/RADIO ADJUSTER TO OBTAIN U/A WITH REFLEX TO UTI PANEL (MOLECULAR) VIA CLEAN CATCH URINE AND IF UNABLE TO OBTAIN MAY PERFORM AN IN AND OUT CATH. IF PATIENT HAS INDWELLING CATHETER MAY OBTAIN FROM SAMPLING PORT. (OPTION 2) RN/PASSENGER CONDUCTOR/RADIO ADJUSTER TO OBTAIN UTI PANEL (MOLECULAR) VIA SWAB COLLECTION METHOD FROM ADULT BRIEF/DIAPER OR PAD IF PATIENT IS INCONTINENT. NOTIFY PROVIDER OF RESULTS AND OBTAIN FURTHER ORDERS.] Future Scheduled Test URINARY IN CONTINENCE MANAGEMENT; RN TO ASSESS AND TEACH, RADIO ADJUSTER/LVNTO OBSERVE AND TEACH MANAGEMENT OF URINARY INCONTINENCE. TEACH/INSTRUCT ON PREVENTING INFECTION AND SKIN BREAKDOWN. RN/RADIO ADJUSTER/PASSENGER CONDUCTOR MAY INSTRUCT IN BLADDER TRAINING PROGRAM INDICATED. [code = URINARY INCONTINENCE MANAGEMENT; RN TO ASSESS AND TEACH, RADIO ADJUSTER/LVNTO OBSERVE AND TEACH MANAGEMENT OF URINARY INCONTINENCE. TEACH/INSTRUCT ON PREVENTING INFECTION AND SKIN BREAKDOWN. RN/RADIO ADJUSTER/PASSENGER CONDUCTOR MAY INSTRUCT IN BLADDER TRAINING PROGRAM INDICATED.] Future Scheduled Test URINARY TR ACT INFECTION MANAGEMENT; RN/PASSENGER CONDUCTOR/RADIO ADJUSTER TO PROVIDE SKILLED TEACHING AND SELF- CARE MANAGEMENT RELATED TO UTI TO MINIMIZE COMPLICATIONS AND REDUCE THE RISK OF HOSPITALIZATION. [code = URINARY TRACT INFECTION MANAGEMENT; RN/PASSENGER CONDUCTOR/RADIO ADJUSTER TO PROVIDE SKILLED TEACHING AND SELF- CARE MANAGEMENT RELATED TO UTI TO MINIMIZE COMPLICATIONS AND REDUCE THE RISK OF HOSPITALIZATION.] Future Scheduled Test GASTROINTE STINAL MANAGEMENT; RN TO ASSESS AND TEACH, PASSENGER CONDUCTOR/RADIO ADJUSTER TO OBSERVE AND TEACH RELATED TO ALTERED GASTROINTESTINAL STATUS TO MINIMIZE COMPLICATIONS AND REDUCE HOSPITALIZATION. [code = GASTROINTESTINAL MANAGEMENT; RN TO ASSESS AND TEACH, PASSENGER CONDUCTOR/RADIO ADJUSTER TO OBSERVE AND TEACH RELATED TO ALTERED [...] Test CARDIOVASC ULAR SYSTEM; RN TO ASSESS/TEACH, RADIO ADJUSTER/PASSENGER CONDUCTOR TO OBSERVE/TEACH RELATED TO ALTERED CARDIOVASCULAR STATUS TO MINIMIZE COMPLICATIONS AND REDUCE HOSPITALIZATION. [code = CARDIOVASCULAR SYSTEM; RN TO ASSESS/TEACH, RADIO ADJUSTER/PASSENGER CONDUCTOR TO OBSERVE/TEACH RELATED TO ALTERED CARDIOVASCULAR STATUS TO MINIMIZE COMPLICATIONS AND REDUCE HOSPITALIZATION.] Future Scheduled Test HYPERTENSI ON MANAGEMENT; RN TO ASSESS AND TEACH, RADIO ADJUSTER/PASSENGER CONDUCTOR TO OBSERVE AND TEACH WARNING SIGNS AND SYMPTOMS TO AVOID HOSPITALIZATION. [code = HYPERTENSION MANAGEMENT; RN TO ASSESS AND TEACH, RADIO ADJUSTER/PASSENGER CONDUCTOR TO OBSERVE AND TEACH WARNING SIGNS AND SYMPTOMS TO AVOID HOSPITALIZATION.] Future Scheduled Test MEDICATION MANAGEMENT; RN/RADIO ADJUSTER/PASSENGER CONDUCTOR TO REVIEW MEDICATIONS FOR INTERACTIONS, EFFECTIVENESS OF DRUG THERAPY, AND SIGNS/SYMPTOMS OF ADVERSE REACTIONS. MAY INSTRUCT AND REINFORCE MEDICATION TEACHING RELATED TO THE USE OF MEDICATIONS, DOSAGE, FREQUENCY, PURPOSE, SIDE EFFECTS, AND TO REPORT COMPLICATIONS. [code = MEDICATION MANAGEMENT; RN/RADIO ADJUSTER/PASSENGER CONDUCTOR TO REVIEW MEDICATIONS FOR INTERACTIONS, EFFECTIVENESS OF DRUG THERAPY, AND SIGNS/SYMPTOMS OF ADVERSE REACTIONS. MAY INSTRUCT AND REINFORCE MEDICATION TEACHING RELATED TO THE USE OF MEDICATIONS, DOSAGE, FREQUENCY, PURPOSE, SIDE EFFECTS, AND TO REPORT COMPLICATIONS.] Future Scheduled Test RESPIRATOR Y SYSTEM MANAGEMENT; RN TO ASSESS AND TEACH, RADIO ADJUSTER/PASSENGER CONDUCTOR TO OBSERVE AND TEACH RELATED TO ALTERED RESPIRATORY STATUS TO MINIMIZE COMPLICATIONS AND REDUCE HOSPITALIZATION. [code = RESPIRATORY SYSTEM MANAGEMENT; RN TO ASSESS AND TEACH, RADIO ADJUSTER/PASSENGER CONDUCTOR TO OBSERVE AND TEACH RELATED TO ALTERED RESPIRATORY STATUS TO MINIMIZE COMPLICATIONS AND REDUCE HOSPITALIZATION.] Future Scheduled Test SKIN INTEG RITY RN TO ASSESS AND TEACH, RADIO ADJUSTER/PASSENGER CONDUCTOR TO OBSERVE AND TEACH INTEGUMENTARY STATUS TO IDENTIFY CHANGES AND INTERVENE TO MINIMIZE COMPLICATIONS. PROVIDE SKILLED TEACHING OF GENERAL WOUND AND SKIN CARE AND PREVENTION RELATED TO POTENTIAL FOR OR ACTUAL ALTERED SKIN INTEGRITY [code = SKIN INTEGRITY RN TO ASSESS AND TEACH, RADIO ADJUSTER/PASSENGER CONDUCTOR TO OBSERVE AND TEACH INTEGUMENTARY STATUS TO IDENTIFY CHANGES AND INTERVENE TO MINIMIZE COMPLICATIONS. PROVIDE SKILLED TEACHING OF GENERAL WOUND AND SKIN CARE AND PREVENTION RELATED TO POTENTIAL FOR OR ACTUAL ALTERED SKIN INTEGRITY ] Future Scheduled Test RN TO ASSE SS AND TEACH, RADIO ADJUSTER/PASSENGER CONDUCTOR TO OBSERVE AND TEACH INTEGUMENTARY STATUS RELATED [...] [code = RN TO ASSESS AND TEACH, RADIO ADJUSTER/PASSENGER CONDUCTOR TO OBSERVE AND TEACH INTEGUMENTARY STATUS RELATED [...] CULAR TESTING PROTOCOL UP TO 3 PRN RN/RADIO ADJUSTER VISITS MAY BE PERFORMED FOR S/S OF WOUND INFECTION/DETERIORATION/STAGNATION. RN TO ASSESS, RADIO ADJUSTER/PASSENGER CONDUCTOR TO OBSERVE AND INITIATE PROTOCOL. RN/RADIO ADJUSTER/PASSENGER CONDUCTOR TO INSTRUCT PATIENT AND/OR CAREGIVER ON S/S OF WOUND INFECTION/DETERIORATION/STAGNATION TO REPORT TO NURSE IF NEW OR WORSENING SYMPTOMS. RN/RADIO ADJUSTER/PASSENGER CONDUCTOR TO OBTAIN MOLECULAR WOUND TESTING VIA SWAB COLLECTION PER POLICY. [id number] NOTIFY PROVIDER OF RESULTS AND OBTAIN FURTHER ORDERS. [code = WOUND MOLECULAR TESTING PROTOCOL UP TO 3 PRN RN/RADIO ADJUSTER VISITS MAY BE PERFORMED FOR S/S OF WOUND INFECTION/DETERIORATION/STAGNATION. RN TO ASSESS, RADIO ADJUSTER/PASSENGER CONDUCTOR TO OBSERVE AND INITIATE PROTOCOL. RN/RADIO ADJUSTER/PASSENGER CONDUCTOR TO INSTRUCT PATIENT AND/OR CAREGIVER ON S/S OF WOUND INFECTION/DETERIORATION/STAGNATION TO REPORT TO NURSE IF NEW OR WORSENING SYMPTOMS. RN/RADIO ADJUSTER/PASSENGER CONDUCTOR TO OBTAIN MOLECULAR WOUND TESTING VIA SWAB COLLECTION PER POLICY. [id number] NOTIFY PROVIDER OF RESULTS AND OBTAIN FURTHER ORDERS.] Future Scheduled Test RN/RADIO ADJUSTER/PASSENGER CONDUCTOR TO PERFORM/TEACH PATIENT/CAREGIVER WOUND CARE TO TOP OF RIGHT FOOT IRRIGATE/CLEANSE WITH WOUND CLEANSER APPLY XEROFORM MAY APPLY SKIN BARRIER TO PERIWOUND PRN TO PREVENT MACERATION AND PROTECT PERIWOUND COVER WITH FOAM DRESSING CHANGE DRESSING EVERY EVERY 3 TIMES A WEEK AND PRN FOR SOILED DRAINAGE DRESSING [code = RN/RADIO ADJUSTER/PASSENGER CONDUCTOR TO PERFORM/TEACH PATIENT/CAREGIVER WOUND CARE TO TOP OF RIGHT FOOT IRRIGATE/CLEANSE WITH WOUND CLEANSER APPLY XEROFORM MAY APPLY SKIN BARRIER TO PERIWOUND PRN TO PREVENT MACERATION AND PROTECT PERIWOUND COVER WITH FOAM DRESSING CHANGE DRESSING EVERY EVERY 3 TIMES A WEEK AND PRN FOR SOILED DRAINAGE DRESSING ] Goal 2024-05-09 Patient Goal - WOUND TO HEAL Goal Patient Goal - WOUND TO HEAL [...] 2024-07-10 00:00:00 Outpatient RECERTIFIC ATION RADHA MAI [facility] [id number] 4.35
[2024-05-23 14:13] LABS: Pneumococcal Antigen Urine NOT DETECTED
[2024-05-29 04:59] LABS: Legionella pneumophila Ag Ur NOT DETECTED
== END 2024-05-22 18:00 | disposition home health service (06) | DRG 194 ==
LOC: ANHED 23:14 → ANH3MEDSUR 05-16 04:19
PROVIDERS: Emergency Medicine; Internal Medicine; Nurse Practitioner Acute Care; Nurse Practitioner Family; Physician Assistant; Admitting Provider Internal Medicine; Emergency Provider Physician Assistant; PCP Internal Medicine Infectious Disease; Visit Provider Nurse Practitioner Adult Health
DX: J18.9 Pneumonia, unspecified organism (principal); G82.20 Paraplegia, unspecified; G93.1 Anoxic brain damage, not elsewhere classified; J39.8 Other specified diseases of upper respiratory tract; I10 Essential (primary) hypertension; D64.9 Anemia, unspecified; D50.9 Iron deficiency anemia, unspecified; F32.A Depression, unspecified; G47.30 Sleep apnea, unspecified; Z20.822 Contact with and (suspected) exposure to COVID-19; T14.8XXS Other injury of unspecified body region, sequela; W34.00XS Accidental discharge from unspecified firearms or gun, sequela; Z79.82 Long term (current) use of aspirin; Z93.1 Gastrostomy status; Z86.73 Personal history of transient ischemic attack (TIA), and cerebral infarction without residual deficits; Z87.891 Personal history of nicotine dependence
CPT/HCPCS: 36415; 71045; 80048; 80053; 82948; 83605; 83735; 85025; 85027; 86140; 86738; 87040; 87070; 87075; 87205; 87449; 87637; 87641; 87899; 93005; 94640; 96365; 96366; 96367; 96375; 99285; A9270; G0378; J1650; J2185; J2543; J3370

== ENCOUNTER 2024-08-23 05:15 | Emergency (ER) | payer MEDICARE, MEDICAID, SELFPAY ==
[2024-08-23] VITALS (30 sets, daily range): BP systolic 95–128; BP diastolic 68–92; PULSE 56–87; RESP 12–21; TEMP 36.7; O2SAT 94–100
--- NOTE | ~2024-08-23 | CT_ITS ---
Non-contrast CT scan of the Abdomen and Pelvis Clinical indication: Ventral hernia, vomiting Technique: 2.5 mm axial scans were obtained through the abdomen and pelvis without intravenous or or al contrast. Dose reduction technique was used on this scan by utilizing automated exposure control a nd iterative reconstruction technique. The dose-length product (DLP) was 528.28 mGy-cm. COMPARISON: 05/12/2023 Findings: Images through the lung bases reveal large right lower lobe consolidation. 3 mm nonobstructing right renal stone present. Left kidney unremarkable. The liver, spleen, pancreas, gallbladder, and adrenals appear normal. There is no aortic aneurysm. There is an extremely large amount of stool present at the rectum, compatible with fecal impaction. T here is a large midline ventral/umbilical hernia containing several small bowel loops as well as smal l amount of fluid. Percutaneous gastrostomy tube present. No definite bowel obstruction. Images through the pelvis were performed. There is no evidence of ascites or lymphadenopathy. Urinary bladder appears unremarkable. Impression: Large umbilical/ventral hernia containing several small bowel loops and free fluid. Fecal impaction. No bowel obstruction evident. Large area of right lower lobe consolidation. Correlate for atelectasis versus pneumonia. Reviewed, dictated and finalized at location . Impression: Large umbilical/ventral hernia containing several small bowel loops and free fl uid. Fecal impaction. No bowel obstruction evident. Large area of right lower lobe consolidation. Correlate for atelectasis versus pneumonia.
--- OUTSIDE RECORDS SUMMARY | 2024-08-23 06:06 | XMS_ITS | Encounter Summary ---
Author Organization [facility] Address [address] [place] [address] Care Team Providers Care Foreign Broadcast Specialist Name Role Phone Pepe Martel MD Primary Care Provider [phone] Encounter Details Date Type Department Care Team (Late st Contact Info) Description 05/12/2021 Lab Requisition [facility] [address] [place] [address] Lamberto De La Cruz MD [address] [facility] [address] [place] [address] Social History Tobacco Use Types [...] W AUTO DIFFERENTIAL STAT 05/12/2021 4:00 AM WELFARE SERVICE AIDE COMPREHENSIVE METABOLIC PANEL STAT 05/12/2021 4:00 AM WELFARE SERVICE AIDE documented in this encounter Results * (ABNORMAL) CBC WITH DIFFERENTIAL (05/12/2021 4:00 AM WELFARE SERVICE AIDE) WBC 7.6 4.4 - 10.7 x10E9/L 05/12/2021 10:20 AM WELFARE SERVICE AIDE [facility] WBC Corrected 05/12/2021 10:20 AM [facility] RBC 4.26 3.80 - 5.40 x10E12/L 05/12/2021 10:20 AM [facility] Hemoglobin 11.7(L) 12.0 - 17.6 gm/dL 05/12/2021 10:20 AM WELFARE SERVICE AIDE [facility] Hematocrit 37.9 35.2 - 51.7 % 05/12/2021 10:20 AM [facility] MCV 89.0 80.7 - 98.3 fl 05/12/2021 10:20 AM [facility] MCH 27.5 26.7 - 34.0 pg 05/12/2021 10:20 AM [facility] MCHC 30.9 30.8 - 35.9 gm/dL 05/12/2021 10:20 AM [facility] Platelet Count 438(H) 153 - 416 x10E9/L 05/12/2021 10:20 AM [facility] RDW-CV 12.7 12.1 - 14.9 % 05/12/2021 10:20 AM [facility] MPV 10.0 9.4 - 12.9 fl 05/12/2021 10:20 AM [facility] Neutrophils % 58.1 44.0 - 73.0 % 05/12/2021 10:20 AM WELFARE SERVICE AIDE [facility] Lymphocytes % 25.1 20.0 - 43.0 % 05/12/2021 10:20 AM [facility] Monocytes % 11.9 5.0 - 13.0 % 05/12/2021 10:20 AM [facility] Eosinophils % 3.9 0.0 - 6.0 % 05/12/2021 10:20 AM [facility] Basophils % 0.7 0.0 - 2.0 % 05/12/2021 10:20 AM [facility] Immature Granulocytes 0.3 0 - 1 % 05/12/2021 10:20 AM [facility] Neutrophil Absolute 4.43 2.01 - 7.14 x10E9/L 05/12/2021 10:20 AM [facility] Lymphocytes Absolute 1.91 1.07 - 3.94 x10E9/L 05/12/2021 10:20 AM [facility] Monocytes Absolute 0.91 0.26 - 1.07 x10E9/L 05/12/2021 10:20 AM [facility] Eosinophils Absolute 0.30 0 - 0.47 x10E9/L 05/12/2021 10:20 AM [facility] Basophils Absolute 0.05 0 - 0.08 x10E9/L 05/12/2021 10:20 AM [facility] Immature Granulocytes Absolute 0.02 0.00 - 0.06 x10E9/L 05/12/2021 10:20 AM [facility] nRBC Auto 0 /100 WBC 05/12/2021 10:20 AM [facility] Blood BLOOD SPECIMEN / Unknown Venipuncture / Unknown 05/12/2021 4:00 AM WELFARE SERVICE AIDE 05/12/2021 9:49 AM [facility] Lamberto De La Cruz MD LAB - HEMATOLOGY ORD ERABLES [facility] [address] [place] [address] * (ABNORMAL) COMPREHENSIVE METABOLIC PANEL (05/12/2021 4:00 AM [facility]) [facility] Glucose 105 70 - 105 mg/dL 05/12/2021 10:54 AM [facility] Sodium 140 136 - 145 mmol/L 05/12/2021 10:54 AM [facility] Potassium 5.1 3.5 - 5.1 mmol/L 05/12/2021 10:54 AM [facility] Chloride 102 98 - 107 mmol/L 05/12/2021 10:54 AM [facility] CO2 20(L) 23 - 31 mmol/L 05/12/2021 10:54 AM [facility] Calcium 9.9 8.4 - 10.4 mg/dL 05/12/2021 10:54 AM [facility] Anion Gap 18 8 - 18 mmol/L 05/12/2021 10:54 AM [facility] BUN 34(H) 8.9 - 20.6 mg/dL 05/12/2021 10:54 AM [facility] Creatinine 1.01 0.72 - 1.25 mg/dL 05/12/2021 10:54 AM [facility] Alkaline Phosphatase 109 40 - 150 U/L 05/12/2021 10:54 AM [facility] ALT 40 0 - 61 U/L 05/12/2021 10:54 AM [facility] AST 29 5 - 34 U/L 05/12/2021 10:54 AM [facility] Protein Total 7.8 6.4 - 8.3 gm/dL 05/12/2021 10:54 AM [facility] Albumin 3.8 3.5 - 5.2 gm/dL 05/12/2021 10:54 AM [facility] Bilirubin Total 0.3 0.2 - 1.2 mg/dL 05/12/2021 10:54 AM [facility] eGFR by MDRD >60 >60 mL/min/1.7 3m2 05/12/2021 10:54 AM [facility] eGFR by MDRD >60 >60 mL/min/1.7 3m2 05/12/2021 10:54 AM [facility] Blood BLOOD SPECIMEN / Unknown Venipuncture / Unknown 05/12/2021 4:00 AM WELFARE SERVICE AIDE 05/12/2021 9:49 AM [facility] Lamberto De La Cruz MD LAB - CHEMISTRY JOSE ENRIQUE VELA [facility] Organization Address City/State/ZIP Co de Phone Number [facility] [address], [place] [phone] documented in this encounter Visit Diagnoses Not on filedocumented in this encounter Care Teams Foreign Broadcast Specialist Relationship Specialty Start Date End Date Pepe Martel MD [address] [facility] [address] [place] [address] PCP - General 08/14/16 documented as of this encounter
--- OUTSIDE RECORDS SUMMARY | 2024-08-23 06:06 | XMS_ITS | Encounter Summary ---
Author Organization [facility] Health Address [address] [place] [address] Care Team Providers Care Quantitative Associate Name Role Phone Pepe Martel MD Primary Care Provider [phone] Encounter Details Date Type Department Care Team (Late st Contact Info) Description 05/08/2021 Lab Requisition [facility] [address] [place] [address] Lamberto De La Cruz MD [address] [facility] [address] [place] [address] Social History Tobacco Use Types [...] W AUTO DIFFERENTIAL Routine 05/08/2021 3:30 AM FILL TECHNICIAN COMPREHENSIVE METABOLIC PANEL Routine 05/08/2021 3:30 AM FILL TECHNICIAN documented in this encounter Results * (ABNORMAL) COMPREHENSIVE METABOLIC PANEL (05/08/2021 3:30 AM FILL TECHNICIAN) Glucose 111(H) 70 - 105 mg/dL 05/08/2021 11:21 AM FILL TECHNICIAN [facility] Sodium 139 136 - 145 mmol/L 05/08/2021 11:21 AM FILL TECHNICIAN [facility] Potassium 4.7 3.5 - 5.1 mmol/L 05/08/2021 11:21 AM FILL TECHNICIAN [facility] Chloride 100 98 - 107 mmol/L 05/08/2021 11:21 AM FILL TECHNICIAN [facility] CO2 27 23 - 31 mmol/L 05/08/2021 11:21 AM FILL TECHNICIAN [facility] Calcium 9.9 8.4 - 10.4 mg/dL 05/08/2021 11:21 AM FILL TECHNICIAN [facility] Anion Gap 12 8 - 18 mmol/L 05/08/2021 11:21 AM FILL TECHNICIAN [facility] BUN 31(H) 8.9 - 20.6 mg/dL 05/08/2021 11:21 AM FILL TECHNICIAN [facility] Creatinine 0.96 0.72 - 1.25 mg/dL 05/08/2021 11:21 AM FILL TECHNICIAN [facility] Alkaline Phosphatase 103 40 - 150 U/L 05/08/2021 11:21 AM FILL TECHNICIAN [facility] ALT 35 0 - 61 U/L 05/08/2021 11:21 AM FILL TECHNICIAN [facility] AST 21 5 - 34 U/L 05/08/2021 11:21 AM FILL TECHNICIAN [facility] Protein Total 7.8 6.4 - 8.3 gm/dL 05/08/2021 11:21 AM FILL TECHNICIAN [facility] Albumin 3.9 3.5 - 5.2 gm/dL 05/08/2021 11:21 AM FILL TECHNICIAN [facility] Bilirubin Total 0.2 0.2 - 1.2 mg/dL 05/08/2021 11:[address] [facility] eGFR by MDRD >60 >60 mL/min/1.7 3m2 05/08/2021 11:[address] [facility] eGFR by MDRD >60 >60 mL/min/1.7 3m2 05/08/2021 11:[address] [facility] Blood BLOOD SPECIMEN / Unknown Venipuncture / Unknown 05/08/2021 3:30 AM FILL TECHNICIAN 05/08/2021 10:47 AM FILL TECHNICIAN Lamberto De La Cruz MD LAB - CHEMISTRY ORDE MIRIAN [facility] Organization Address City/State/ZIP Co de Phone Number [facility] [address] [place] [address] * (ABNORMAL) CBC WITH DIFFERENTIAL (05/08/2021 3:30 AM FILL TECHNICIAN) WBC 7.1 4.4 - 10.7 x10E9/L 05/08/2021 10:[address] [facility] WBC Corrected 05/08/2021 10:[address] [facility] RBC 4.11 3.80 - 5.40 x10E12/L 05/08/2021 10:[address] [facility] Hemoglobin 11.5(L) 12.0 - 17.6 gm/dL 05/08/2021 10:[address] [facility] Hematocrit 36.8 35.2 - 51.7 % 05/08/2021 10:[address] [facility] MCV 89.5 80.7 - 98.3 fl 05/08/2021 10:[address] [facility] MCH 28.0 26.7 - 34.0 pg 05/08/2021 10:[address] [facility] MCHC 31.3 30.8 - 35.9 gm/dL 05/08/2021 10:[address] [facility] Platelet Count 442(H) 153 - 416 x10E9/L 05/08/2021 10:[address] [facility] RDW-CV 13.2 12.1 - 14.9 % 05/08/2021 10:[address] [facility] MPV 10.1 9.4 - 12.9 fl 05/08/2021 10:[address] [facility] Neutrophils % 68.3 44.0 - 73.0 % 05/08/2021 10:[address] [facility] Lymphocytes % 18.0(L) 20.0 - 43.0 % 05/08/2021 10:[address] [facility] Monocytes % 8.6 5.0 - 13.0 % 05/08/2021 10:[address] [facility] Eosinophils % 4.6 0.0 - 6.0 % 05/08/2021 10:[address] [facility] Basophils % 0.4 0.0 - 2.0 % 05/08/2021 10:[address] [facility] Immature Granulocytes 0.1 0 - 1 % 05/08/2021 10:[address] [facility] Neutrophil Absolute 4.84 2.01 - 7.14 x10E9/L 05/08/2021 10:[address] [facility] Lymphocytes Absolute 1.28 1.07 - 3.94 x10E9/L 05/08/2021 10:[address] [facility] Monocytes Absolute 0.61 0.26 - 1.07 x10E9/L 05/08/2021 10:[address] [facility] Eosinophils Absolute 0.33 0 - 0.47 x10E9/L 05/08/2021 10:[address] [facility] Basophils Absolute 0.03 0 - 0.08 x10E9/L 05/08/2021 10:[address] [facility] Immature Granulocytes Absolute 0.01 0.00 - 0.06 x10E9/L 05/08/2021 10:[address] [facility] nRBC Auto 0 /100 WBC 05/08/2021 10:[address] [facility] Blood BLOOD SPECIMEN / Unknown Venipuncture / Unknown 05/08/2021 3:30 AM FILL TECHNICIAN 05/08/2021 10:47 AM FILL TECHNICIAN Lamberto De La Cruz MD LAB - HEMATOLOGY ORD ERABLES [facility] [address] [place], [place] [id number] documented in this encounter Visit Diagnoses Not on filedocumented in this encounter Care Teams Quantitative Associate Relationship Specialty Start Date End Date Pepe Martel MD [address] [place] [id number] PCP - General 08/14/16 documented as of this encounter
--- OUTSIDE RECORDS SUMMARY | 2024-08-23 06:06 | XMS_ITS | Encounter Summary ---
Author Organization [facility] Health Address [address] [facility] [place] [address] Care Team Providers Care Outsole Compressor Name Role Phone Pepe Martel MD Primary Care Provider [phone] Encounter Details Date Type Department Care Team (Late st Contact Info) Description 06/05/2021 Lab Requisition [facility] [address] [place] [address] Lamberto De La Cruz MD [address] [facility] [address] [place] [address] Social History Tobacco Use Types [...] W AUTO DIFFERENTIAL STAT 06/05/2021 4:39 AM PARTS SPECIALIST COMPREHENSIVE METABOLIC PANEL STAT 06/05/2021 4:39 AM PARTS SPECIALIST documented in this encounter Results * (ABNORMAL) CBC WITH DIFFERENTIAL (06/05/2021 4:39 AM PARTS SPECIALIST) WBC 11.1(H) 4.4 - 10.7 x10E9/L 06/05/2021 11:01 AM PARTS SPECIALIST [facility] WBC Corrected 06/05/2021 11:01 AM PARTS SPECIALIST [facility] RBC 4.20 3.80 - 5.40 x10E12/L 06/05/2021 11:01 AM [facility] Hemoglobin 11.2(L) 12.0 - 17.6 gm/dL 06/05/2021 11:01 AM PARTS SPECIALIST [facility] Hematocrit 35.8 35.2 - 51.7 % 06/05/2021 11:01 AM PARTS SPECIALIST [facility] MCV 85.2 80.7 - 98.3 fl 06/05/2021 11:01 AM [facility] MCH 26.7 26.7 - 34.0 pg 06/05/2021 11:01 AM PARTS SPECIALIST [facility] MCHC 31.3 30.8 - 35.9 gm/dL 06/05/2021 11:01 AM [facility] Platelet Count 498(H) 153 - 416 x10E9/L 06/05/2021 11:01 AM PARTS SPECIALIST [facility] RDW-CV 12.0(L) 12.1 - 14.9 % 06/05/2021 11:01 AM PARTS SPECIALIST [facility] MPV 9.2(L) 9.4 - 12.9 fl 06/05/2021 11:01 AM PARTS SPECIALIST [facility] Neutrophils % 74.6(H) 44.0 - 73.0 % 06/05/2021 11:01 AM PARTS SPECIALIST [facility] Lymphocytes % 13.4(L) 20.0 - 43.0 % 06/05/2021 11:01 AM [facility] Monocytes % 7.9 5.0 - 13.0 % 06/05/2021 11:01 AM [facility] Eosinophils % 3.3 0.0 - 6.0 % 06/05/2021 11:01 AM [facility] Basophils % 0.4 0.0 - 2.0 % 06/05/2021 11:01 AM [facility] Immature Granulocytes 0.4 0 - 1 % 06/05/2021 11:01 AM [facility] Neutrophil Absolute 8.28(H) 2.01 - 7.14 x10E9/L 06/05/2021 11:01 AM [facility] Lymphocytes Absolute 1.49 1.07 - 3.94 x10E9/L 06/05/2021 11:01 AM [facility] Monocytes Absolute 0.88 0.26 - 1.07 x10E9/L 06/05/2021 11:01 AM [facility] Eosinophils Absolute 0.37 0 - 0.47 x10E9/L 06/05/2021 11:01 AM [facility] Basophils Absolute 0.04 0 - 0.08 x10E9/L 06/05/2021 11:01 AM [facility] Immature Granulocytes Absolute 0.04 0.00 - 0.06 x10E9/L 06/05/2021 11:01 AM [facility] nRBC Auto 0 /100 WBC 06/05/2021 11:01 AM [facility] Blood BLOOD SPECIMEN / Unknown Venipuncture / Unknown 06/05/2021 4:39 AM [facility] 06/05/2021 10:29 AM [facility] Lamberto De La Cruz MD LAB - HEMATOLOGY ORD ERABLES [facility] [address] [place] [address] * (ABNORMAL) COMPREHENSIVE METABOLIC PANEL (06/05/2021 4:39 AM [facility]) Glucose 124(H) 70 - 105 mg/dL 06/05/2021 11:27 AM [facility] Sodium 134(L) 136 - 145 mmol/L 06/05/2021 11:27 AM [facility] Potassium 4.8 3.5 - 5.1 mmol/L 06/05/2021 11:27 AM [facility] Chloride 97(L) 98 - 107 mmol/L 06/05/2021 11:27 AM [facility] CO2 27 23 - 31 mmol/L 06/05/2021 11:27 AM [facility] Calcium 9.6 8.4 - 10.4 mg/dL 06/05/2021 11:27 AM [facility] Anion Gap 10 8 - 18 mmol/L 06/05/2021 11:27 AM [facility] BUN 32(H) 8.9 - 20.6 mg/dL 06/05/2021 11:27 AM [facility] Creatinine 0.83 0.72 - 1.25 mg/dL 06/05/2021 11:27 AM [facility] Alkaline Phosphatase 166(H) 40 - 150 U/L 06/05/2021 11:27 AM [facility] ALT 34 0 - 61 U/L 06/05/2021 11:27 AM [facility] AST 17 5 - 34 U/L 06/05/2021 11:27 AM [facility] Protein Total 8.0 6.4 - 8.3 gm/dL 06/05/2021 11:27 AM [facility] Albumin 3.6 3.5 - 5.2 gm/dL 06/05/2021 11:27 AM [facility] Bilirubin Total <0.1(L) 0.2 - 1.2 mg/dL 06/05/2021 11:27 AM [facility] eGFR by MDRD >60 >60 mL/min/1.7 3m2 06/05/2021 11:27 AM [facility] eGFR by MDRD >60 >60 mL/min/1.7 3m2 06/05/2021 11:27 AM [facility] Blood BLOOD SPECIMEN / Unknown Venipuncture / Unknown 06/05/2021 4:39 AM PARTS SPECIALIST 06/05/2021 10:29 AM [facility] Lamberto De La Cruz MD LAB - CHEMISTRY JOSE ENRIQUE VELA [facility] Organization Address City/State/ZIP Co de Phone Number [facility] [address] [place] [address] documented in this encounter Visit Diagnoses Not on filedocumented in this encounter Care Teams Outsole Compressor Relationship Specialty Start Date End Date Pepe Martel MD [address] [place] [phone] PCP - General 08/14/16 documented as of this encounter
--- OUTSIDE RECORDS SUMMARY | 2024-08-23 06:06 | XMS_ITS | Encounter Summary ---
Author Organization [facility] Health Address [address] [facility] [place] [address] Care Team Providers Care Grader Green Meat Name Role Phone Pepe Martel MD Primary Care Provider [phone] Encounter Details Date Type Department Care Team (Late st Contact Info) Description 06/02/2021 Lab Requisition [facility] [address] [place] [address] Lamberto De La Cruz MD [address] [facility] [address] [place] [address] Social History Tobacco Use Types [...] W AUTO DIFFERENTIAL STAT 06/02/2021 3:50 AM NITROGLYCERIN SEPARATOR OPERATOR COMPREHENSIVE METABOLIC PANEL STAT 06/02/2021 3:50 AM NITROGLYCERIN SEPARATOR OPERATOR documented in this encounter Results * (ABNORMAL) COMPREHENSIVE METABOLIC PANEL (06/02/2021 3:50 AM NITROGLYCERIN SEPARATOR OPERATOR) Glucose 126(H) 70 - 105 mg/dL 06/02/2021 9:57 AM NITROGLYCERIN SEPARATOR OPERATOR [facility] Sodium 133(L) 136 - 145 mmol/L 06/02/2021 9:57 AM NITROGLYCERIN SEPARATOR OPERATOR [facility] Potassium 4.9 3.5 - 5.1 mmol/L 06/02/2021 9:57 AM NITROGLYCERIN SEPARATOR OPERATOR [facility] Chloride 95(L) 98 - 107 mmol/L 06/02/2021 9:57 AM NITROGLYCERIN SEPARATOR OPERATOR [facility] CO2 26 23 - 31 mmol/L 06/02/2021 9:57 AM NITROGLYCERIN SEPARATOR OPERATOR [facility] Calcium 9.4 8.4 - 10.4 mg/dL 06/02/2021 9:57 AM NITROGLYCERIN SEPARATOR OPERATOR [facility] Anion Gap 12 8 - 18 mmol/L 06/02/2021 9:57 AM NITROGLYCERIN SEPARATOR OPERATOR [facility] BUN 28(H) 8.9 - 20.6 mg/dL 06/02/2021 9:57 AM NITROGLYCERIN SEPARATOR OPERATOR [facility] Creatinine 0.76 0.72 - 1.25 mg/dL 06/02/2021 9:57 AM NITROGLYCERIN SEPARATOR OPERATOR [facility] Alkaline Phosphatase 170(H) 40 - 150 U/L 06/02/2021 9:57 AM NITROGLYCERIN SEPARATOR OPERATOR [facility] ALT 37 0 - 61 U/L 06/02/2021 9:57 AM NITROGLYCERIN SEPARATOR OPERATOR [facility] AST 18 5 - 34 U/L 06/02/2021 9:57 AM NITROGLYCERIN SEPARATOR OPERATOR [facility] Protein Total 7.6 6.4 - 8.3 gm/dL 06/02/2021 9:57 AM NITROGLYCERIN SEPARATOR OPERATOR [facility] Albumin 3.5 3.5 - 5.2 gm/dL 06/02/2021 9:57 AM NITROGLYCERIN SEPARATOR OPERATOR [facility] Bilirubin Total <0.1(L) 0.2 - 1.2 mg/dL 06/02/2021 9:57 AM [facility] eGFR by MDRD >60 >60 mL/min/1.7 3m2 06/02/2021 9:57 AM [facility] eGFR by MDRD >60 >60 mL/min/1.7 3m2 06/02/2021 9:57 AM [facility] Blood BLOOD SPECIMEN / Unknown Venipuncture / Unknown 06/02/2021 3:50 AM NITROGLYCERIN SEPARATOR OPERATOR 06/02/2021 8:48 AM NITROGLYCERIN SEPARATOR OPERATOR Lamberto De La Cruz MD LAB - CHEMISTRY ORDE [facility] Organization Address City/State/ZIP Co de Phone Number [facility] [address] [place] [address] * (ABNORMAL) CBC WITH DIFFERENTIAL (06/02/2021 3:50 AM NITROGLYCERIN SEPARATOR OPERATOR) [facility] WBC 9.6 4.4 - 10.7 x10E9/L 06/02/2021 9:26 AM [facility] WBC Corrected 06/02/2021 9:26 AM [facility] RBC 3.91 3.80 - 5.40 x10E12/L 06/02/2021 9:26 AM [facility] Hemoglobin 10.7(L) 12.0 - 17.6 gm/dL 06/02/2021 9:26 AM [facility] Hematocrit 32.6(L) 35.2 - 51.7 % 06/02/2021 9:26 AM [facility] MCV 83.4 80.7 - 98.3 fl 06/02/2021 9:26 AM [facility] MCH 27.4 26.7 - 34.0 pg 06/02/2021 9:26 AM [facility] MCHC 32.8 30.8 - 35.9 gm/dL 06/02/2021 9:26 AM [facility] Platelet Count 478(H) 153 - 416 x10E9/L 06/02/2021 9:26 AM [facility] RDW-CV 12.0(L) 12.1 - 14.9 % 06/02/2021 9:26 AM [facility] MPV 9.2(L) 9.4 - 12.9 fl 06/02/2021 9:26 AM [facility] Neutrophils % 72.3 44.0 - 73.0 % 06/02/2021 9:26 AM [facility] Lymphocytes % 13.0(L) 20.0 - 43.0 % 06/02/2021 9:26 AM [facility] Monocytes % 10.0 5.0 - 13.0 % 06/02/2021 9:26 AM [facility] Eosinophils % 4.1 0.0 - 6.0 % 06/02/2021 9:26 AM [facility] Basophils % 0.3 0.0 - 2.0 % 06/02/2021 9:26 AM [facility] Immature Granulocytes 0.3 0 - 1 % 06/02/2021 9:26 AM [facility] Neutrophil Absolute 6.92 2.01 - 7.14 x10E9/L 06/02/2021 9:26 AM [facility] Lymphocytes Absolute 1.25 1.07 - 3.94 x10E9/L 06/02/2021 9:26 AM [facility] Monocytes Absolute 0.96 0.26 - 1.07 x10E9/L 06/02/2021 9:26 AM [facility] Eosinophils Absolute 0.39 0 - 0.47 x10E9/L 06/02/2021 9:26 AM [facility] Basophils Absolute 0.03 0 - 0.08 x10E9/L 06/02/2021 9:26 AM [facility] Immature Granulocytes Absolute 0.03 0.00 - 0.06 x10E9/L 06/02/2021 9:26 AM [facility] nRBC Auto 0 /100 WBC 06/02/2021 9:26 AM [facility] Blood BLOOD SPECIMEN / Unknown Venipuncture / Unknown 06/02/2021 3:50 AM NITROGLYCERIN SEPARATOR OPERATOR 06/02/2021 8:48 AM NITROGLYCERIN SEPARATOR OPERATOR Lamberto De La Cruz MD LAB - HEMATOLOGY ORD ERABLES [facility] [address] [place] [address] documented in this encounter Visit Diagnoses Not on filedocumented in this encounter Care Teams Grader Green Meat Relationship Specialty Start Date End Date Pepe Martel MD [address] [place] [id number] PCP - General 08/14/16 documented as of this encounter
--- OUTSIDE RECORDS SUMMARY | 2024-08-23 06:06 | XMS_ITS | Encounter Summary ---
Author Organization [facility] Health Address [address] [facility] [place] [address] Care Team Providers Care Ballpoint Pen Assembly Machine Operator Name Role Phone Pepe Martel MD Primary Care Provider [phone] Encounter Details Date Type Department Care Team (Late st Contact Info) Description 04/24/2021 Lab Requisition [facility] [address] [place] [address] Lamberto De La Cruz MD [address] [facility] [address] [place] [address] Social History Tobacco Use Types [...] W AUTO DIFFERENTIAL STAT 04/24/2021 3:30 AM SDC TEACHER COMPREHENSIVE METABOLIC PANEL STAT 04/24/2021 3:30 AM SDC TEACHER documented in this encounter Results * (ABNORMAL) CBC WITH DIFFERENTIAL (04/24/2021 3:30 AM SDC TEACHER) WBC 7.7 4.4 - 10.7 x10E9/L 04/24/2021 11:28 AM SDC TEACHER [facility] WBC Corrected 04/24/2021 11:28 AM SDC TEACHER [facility] RBC 4.09 3.80 - 5.40 x10E12/L 04/24/2021 11:28 AM SDC TEACHER [facility] Hemoglobin 11.5(L) 12.0 - 17.6 gm/dL 04/24/2021 11:28 AM SDC TEACHER [facility] Hematocrit 37.1 35.2 - 51.7 % 04/24/2021 11:28 AM SDC TEACHER [facility] MCV 90.7 80.7 - 98.3 fl 04/24/2021 11:28 AM SDC TEACHER [facility] MCH 28.1 26.7 - 34.0 pg 04/24/2021 11:28 AM SDC TEACHER [facility] MCHC 31.0 30.8 - 35.9 gm/dL 04/24/2021 11:28 AM SDC TEACHER [facility] Platelet Count 403 153 - 416 x10E9/L 04/24/2021 11:28 AM SDC TEACHER [facility] RDW-CV 14.0 12.1 - 14.9 % 04/24/2021 11:28 AM SDC TEACHER [facility] MPV 10.3 9.4 - 12.9 fl 04/24/2021 11:28 AM SDC TEACHER [facility] Neutrophils % 66.7 44.0 - 73.0 % 04/24/2021 11:28 AM SDC TEACHER [facility] Lymphocytes % 15.7(L) 20.0 - 43.0 % 04/24/2021 11:28 AM SDC TEACHER [facility] Monocytes % 14.0(H) 5.0 - 13.0 % 04/24/2021 11:28 AM [facility] Eosinophils % 3.0 0.0 - 6.0 % 04/24/2021 11:28 AM [facility] Basophils % 0.5 0.0 - 2.0 % 04/24/2021 11:28 AM [facility] Immature Granulocytes 0.1 0 - 1 % 04/24/2021 11:28 AM [facility] Neutrophil Absolute 5.13 2.01 - 7.14 x10E9/L 04/24/2021 11:28 AM [facility] Lymphocytes Absolute 1.21 1.07 - 3.94 x10E9/L 04/24/2021 11:28 AM [facility] Monocytes Absolute 1.08(H) 0.26 - 1.07 x10E9/L 04/24/2021 11:28 AM [facility] Eosinophils Absolute 0.23 0 - 0.47 x10E9/L 04/24/2021 11:28 AM [facility] Basophils Absolute 0.04 0 - 0.08 x10E9/L 04/24/2021 11:28 AM [facility] Immature Granulocytes Absolute 0.01 0.00 - 0.06 x10E9/L 04/24/2021 11:28 AM [facility] nRBC Auto 0 /100 WBC 04/24/2021 11:28 AM [facility] Blood BLOOD SPECIMEN / Unknown Venipuncture / Unknown 04/24/2021 3:30 AM SDC TEACHER 04/24/2021 11:01 AM [facility] Lamberto De La Cruz MD LAB - HEMATOLOGY ORD ERABLES [facility] [address] [place] [address] * (ABNORMAL) COMPREHENSIVE METABOLIC PANEL (04/24/2021 3:30 AM [facility]) [facility] Glucose 108(H) 70 - 105 mg/dL 04/24/2021 11:47 AM [facility] Sodium 139 136 - 145 mmol/L 04/24/2021 11:47 AM [facility] Potassium 4.7 3.5 - 5.1 mmol/L 04/24/2021 11:47 AM [facility] Chloride 104 98 - 107 mmol/L 04/24/2021 11:47 AM [facility] CO2 20(L) 23 - 31 mmol/L 04/24/2021 11:47 AM [facility] Calcium 9.9 8.4 - 10.4 mg/dL 04/24/2021 11:47 AM [facility] Anion Gap 15 8 - 18 mmol/L 04/24/2021 11:47 AM [facility] BUN 28(H) 8.9 - 20.6 mg/dL 04/24/2021 11:47 AM [facility] Creatinine 0.95 0.72 - 1.25 mg/dL 04/24/2021 11:47 AM [facility] Alkaline Phosphatase 86 40 - 150 U/L 04/24/2021 11:47 AM [facility] ALT 24 0 - 61 U/L 04/24/2021 11:47 AM [facility] AST 25 5 - 34 U/L 04/24/2021 11:47 AM [facility] Protein Total 8.1 6.4 - 8.3 gm/dL 04/24/2021 11:47 AM [facility] Albumin 3.8 3.5 - 5.2 gm/dL 04/24/2021 11:47 AM [facility] Bilirubin Total 0.3 0.2 - 1.2 mg/dL 04/24/2021 11:47 AM [facility] eGFR by MDRD >60 >60 mL/min/1.7 3m2 04/24/2021 11:47 AM [facility] eGFR by MDRD >60 >60 mL/min/1.7 3m2 04/24/2021 11:47 AM [facility] Blood BLOOD SPECIMEN / Unknown Venipuncture / Unknown 04/24/2021 3:30 AM [employer] 04/24/2021 11:01 AM [facility] [employer] Lamberto De La Cruz MD LAB - CHEMISTRY JOSE ENRIQUE VELA [facility] Organization Address City/State/ZIP Co de Phone Number [facility] [address] [place] [address] documented in this encounter Visit Diagnoses Not on filedocumented in this encounter Care Teams [employer] Machine Operator Relationship Specialty Start Date End Date Pepe Martel MD [address] [place] [id number] PCP - General 08/14/16 documented as of this encounter
--- OUTSIDE RECORDS SUMMARY | 2024-08-23 06:06 | XMS_ITS | Encounter Summary ---
Author Organization [facility] Address [address] [facility] [place] [address] Care Team Providers Care Machine Learning Intern Name Role Phone Pepe Martel MD Primary Care Provider Encounter Details Date Type Department Care Team (Late st Contact Info) Description 05/23/2021 Lab Requisition [facility] [address] [place] [address] [place] [address] [place] [address] Social History Tobacco Use Types [...] SLIDE SCAN HEMATOLOGY Routine 05/23/2021 4:00 AM SUPERINTENDENT MEASUREMENT CBC W AUTO DIFFERENTIAL STAT 05/23/2021 4:00 AM SUPERINTENDENT MEASUREMENT documented in this encounter Results * SLIDE SCAN HEMATOLOGY (05/23/2021 4:00 AM SUPERINTENDENT MEASUREMENT) WBC Morph Normal 05/23/2021 9:33 AM SUPERINTENDENT MEASUREMENT [facility] RBC Morphology Normal 05/23/2021 9:33 AM SUPERINTENDENT MEASUREMENT [facility] Platelet Estimation Normal Normal, Adequate platelets 05/23/2021 9:33 AM SUPERINTENDENT MEASUREMENT [facility] Blood BLOOD SPECIMEN / Unknown Venipuncture / Unknown 05/23/2021 4:00 AM SUPERINTENDENT MEASUREMENT 05/23/2021 8:32 AM SUPERINTENDENT MEASUREMENT Braden Hernandez MD LAB - HEMATOLOGY ORD ERABLES Performing Organization Address City/State/[facility] Co de Phone Number [facility] [address] [place] [address] * (ABNORMAL) CBC WITH DIFFERENTIAL (05/23/2021 4:00 AM SUPERINTENDENT MEASUREMENT) WBC 7.7 4.4 - 10.7 x10E9/L 05/23/2021 8:48 AM SUPERINTENDENT MEASUREMENT [facility] WBC Corrected 05/23/2021 8:48 AM SUPERINTENDENT MEASUREMENT [facility] RBC 3.64(L) 3.80 - 5.40 x10E12/L 05/23/2021 8:48 AM SUPERINTENDENT MEASUREMENT [facility] Hemoglobin 10.1(L) 12.0 - 17.6 gm/dL 05/23/2021 8:48 AM SUPERINTENDENT MEASUREMENT [facility] Hematocrit 32.2(L) 35.2 - 51.7 % 05/23/2021 8:48 AM SUPERINTENDENT MEASUREMENT [facility] MCV 88.5 80.7 - 98.3 fl 05/23/2021 8:48 AM [facility] MCH 27.7 26.7 - 34.0 pg 05/23/2021 8:48 AM [facility] MCHC 31.4 30.8 - 35.9 gm/dL 05/23/2021 8:48 AM [facility] Platelet Count 299 153 - 416 x10E9/L 05/23/2021 8:48 AM [facility] RDW-CV 12.3 12.1 - 14.9 % 05/23/2021 8:48 AM [facility] MPV 10.5 9.4 - 12.9 fl 05/23/2021 8:48 AM [facility] Neutrophils % 71.5 44.0 - 73.0 % 05/23/2021 8:48 AM [facility] Lymphocytes % 12.3(L) 20.0 - 43.0 % 05/23/2021 8:48 AM [facility] Monocytes % 11.8 5.0 - 13.0 % 05/23/2021 8:48 AM [facility] Eosinophils % 3.8 0.0 - 6.0 % 05/23/2021 8:48 AM [facility] Basophils % 0.3 0.0 - 2.0 % 05/23/2021 8:48 AM [facility] Immature Granulocytes 0.3 0 - 1 % 05/23/2021 8:48 AM [facility] Neutrophil Absolute 5.51 2.01 - 7.14 x10E9/L 05/23/2021 8:48 AM [facility] Lymphocytes Absolute 0.95(L) 1.07 - 3.94 x10E9/L 05/23/2021 8:48 AM [facility] Monocytes Absolute 0.91 0.26 - 1.07 x10E9/L 05/23/2021 8:48 AM [facility] Eosinophils Absolute 0.29 0 - 0.47 x10E9/L 05/23/2021 8:48 AM [facility] Basophils Absolute 0.02 0 - 0.08 x10E9/L 05/23/2021 8:48 AM [facility] Immature Granulocytes Absolute 0.02 0.00 - 0.06 x10E9/L 05/23/2021 8:48 AM [facility] nRBC Auto 0 /100 WBC 05/23/2021 8:48 AM SUPERINTENDENT MEASUREMENT [facility] Blood BLOOD SPECIMEN / Unknown Venipuncture / Unknown 05/23/2021 4:00 AM SUPERINTENDENT MEASUREMENT 05/23/2021 8:32 AM SUPERINTENDENT MEASUREMENT Braden Hernandez MD LAB - HEMATOLOGY ORD ERABLES Performing Organization Address City/State/[facility] Co de Phone Number [facility] [address] [place], [place] [id number] documented in this encounter Visit Diagnoses Not on filedocumented in this encounter Care Teams Machine Learning Intern Relationship Specialty Start Date End Date Pepe Martel MD [address] [place] [address] [address] [place] [address] PCP - General 08/14/16 documented as of this encounter
--- OUTSIDE RECORDS SUMMARY | 2024-08-23 06:06 | XMS_ITS | Encounter Summary ---
Author Organization [facility] Address [address] [place] [address] Care Team Providers Care Hydraulic Assembler Name Role Phone Pepe Martel MD Primary Care Provider [phone] Encounter Details Date Type Department Care Team (Late st Contact Info) Description 05/22/2021 Lab Requisition [facility] [address] [place] [address] Lamberto De La Cruz MD [address] [facility] [address] [place] [address] Social History Tobacco Use Types [...] COMPREHENSIVE METABOLIC PANEL STAT 05/22/2021 4:26 AM EMAIL PRODUCER VANCOMYCIN LEVEL TROUGH STAT 05/22/2021 4:26 AM EMAIL PRODUCER documented in this encounter Results * (ABNORMAL) COMPREHENSIVE METABOLIC PANEL (05/22/2021 4:26 AM EMAIL PRODUCER) Glucose 82 70 - 105 mg/dL 05/22/2021 10:29 AM [facility] Sodium 137 136 - 145 mmol/L 05/22/2021 10:29 AM [facility] Potassium 4.7 3.5 - 5.1 mmol/L 05/22/2021 10:29 AM [facility] Chloride 105 98 - 107 mmol/L 05/22/2021 10:29 AM [facility] CO2 23 23 - 31 mmol/L 05/22/2021 10:29 AM [facility] Calcium 9.0 8.4 - 10.4 mg/dL 05/22/2021 10:29 AM [facility] Anion Gap 9 8 - 18 mmol/L 05/22/2021 10:29 AM [facility] BUN 28(H) 8.9 - 20.6 mg/dL 05/22/2021 10:29 AM [facility] Creatinine 0.83 0.72 - 1.25 mg/dL 05/22/2021 10:29 AM [facility] Alkaline Phosphatase 79 40 - 150 U/L 05/22/2021 10:29 AM [facility] ALT 25 0 - 61 U/L 05/22/2021 10:29 AM [facility] AST 18 5 - 34 U/L 05/22/2021 10:29 AM [facility] Protein Total 7.0 6.4 - 8.3 gm/dL 05/22/2021 10:29 AM [facility] Albumin 3.5 3.5 - 5.2 gm/dL 05/22/2021 10:29 AM [facility] Bilirubin Total 0.2 0.2 - 1.2 mg/dL 05/22/2021 10:29 AM EMAIL PRODUCER [facility] eGFR by MDRD >60 >60 mL/min/1.7 3m2 05/22/2021 10:29 AM EMAIL PRODUCER [facility] eGFR by MDRD >60 >60 mL/min/1.7 3m2 05/22/2021 10:29 AM EMAIL PRODUCER [facility] Blood BLOOD SPECIMEN / Unknown Venipuncture / Unknown 05/22/2021 4:26 AM EMAIL PRODUCER 05/22/2021 9:05 AM EMAIL PRODUCER Lamberto De La Cruz MD LAB - CHEMISTRY JOSE ENRIQUE VELA Performing Organization Address City/[facility]/ZIP Co de Phone Number [facility] [address] [place] [address] * VANCOMYCIN LEVEL TROUGH (05/22/2021 4:26 AM EMAIL PRODUCER) Vancomycin Trough 15.5 10.0 - 20.0 ug/mL 05/22/2021 9:41 AM EMAIL PRODUCER [facility] Blood BLOOD SPECIMEN / Unknown Venipuncture / Unknown 05/22/2021 4:26 AM EMAIL PRODUCER 05/22/2021 9:05 AM EMAIL PRODUCER Lamberto De La Cruz MD LAB - CHEMISTRY JOSE ENRIQUE VELA Performing Organization Address City/[facility]/ZIP Co de Phone Number [facility] [address] [place] [address] documented in this encounter Visit Diagnoses Not on filedocumented in this encounter Care Teams Hydraulic Assembler Relationship Specialty Start Date End Date Pepe Martel MD [address] [facility] [address] [place] [address] PCP - General 08/14/16 documented as of this encounter
--- OUTSIDE RECORDS SUMMARY | 2024-08-23 06:06 | XMS_ITS | CONTINUITY OF CARE DOCUMENT ---
Author Name sd [email or web address] Address Unknown Organization [facility] Address [address] [place] [address] [address] [place] [address] Phone [phone] Care Team Providers Care Lead Web Application Developer Name Role Phone Geovanna Cortes MD Unavailable FRANCIS EVANS MD Unavailable [phone] FRANCIS EVANS MD Unavailable [phone] PROBLEMS Condition Status Date Provider Notes HYPERTENSION active Geovanna Cortes MD Obesity active Geovanna Cortes MD Snoring active Geovanna Cortes MD Tobacco abuse active Geovanna Cortes MD ENCOUNTERS Date Type Provider Location Encounter Diag nosis 1 - 2 In-person encounter Office Visit Geovanna Cortes MD [facility] HYPERTENSIONObesitySnoringTobacco abuse VITAL SIGNS Date Observation Value Provider blood pressure, diastolic 80 mm[Hg] Roman Joseph blood pressure, systolic 150 mm[Hg] Justice Joseph height E&M 67 [in_i] Olga Joseph height in centimeters E&M 170.18 cm Roman Joseph Body Mass Index (Ratio) 51.68 kg/m2 Kiel Cortes MD blood pressure, resting Yes Kiel Cortes MD blood pressure, cuff size regular Sanchez Mendieta blood pressure, diastolic 102 mm[Hg] Sanchez [...] years as a smoker 15 a Kenzie Anam smoking history, tot al pack/day 1/2 Geovanna Cortes MD cigarette use yes Kenzie sprague smoking status Current every day smoker C sabrina Mendieta FAMILY HISTORY Family Member Condition Father Family History of Di abetes: INSURANCE PROVIDERS Payer name Policy type / Coverage type Varun red republican ID [id number] PAY [id number] ADVANCE DIRECTIVES Name Date DISCUSSED - NO [...]
--- OUTSIDE RECORDS SUMMARY | 2024-08-23 06:06 | XMS_ITS | Encounter Summary ---
Author Organization [facility] Address [address] [facility] [place] [address] Care Team Providers Care Rehabilitation Services Director Name Role Phone Pepe Martel MD Primary Care Provider [phone] Encounter Details Date Type Department Care Team (Late st Contact Info) Description 05/30/2021 Lab Requisition [facility] [address] [place] [address] Fredy Sue [address] [place] [id number] Social History Tobacco Use Types Packs/Day Years [...] W AUTO DIFFERENTIAL STAT 05/30/2021 4:00 AM AUDIENCE COORDINATOR COMPREHENSIVE METABOLIC PANEL STAT 05/30/2021 4:00 AM AUDIENCE COORDINATOR documented in this encounter Results * (ABNORMAL) CBC WITH DIFFERENTIAL (05/30/2021 4:00 AM AUDIENCE COORDINATOR) WBC 11.5(H) 4.4 - 10.7 x10E9/L 05/30/2021 9:11 AM AUDIENCE COORDINATOR [facility] WBC Corrected 05/30/2021 9:11 AM AUDIENCE COORDINATOR [facility] RBC 3.84 3.80 - 5.40 x10E12/L 05/30/2021 9:11 AM AUDIENCE COORDINATOR [facility] Hemoglobin 10.5(L) 12.0 - 17.6 gm/dL 05/30/2021 9:11 AM AUDIENCE COORDINATOR [facility] Hematocrit 32.9(L) 35.2 - 51.7 % 05/30/2021 9:11 AM AUDIENCE COORDINATOR [facility] MCV 85.7 80.7 - 98.3 fl 05/30/2021 9:11 AM AUDIENCE COORDINATOR [facility] MCH 27.3 26.7 - 34.0 pg 05/30/2021 9:11 AM AUDIENCE COORDINATOR [facility] MCHC 31.9 30.8 - 35.9 gm/dL 05/30/2021 9:11 AM AUDIENCE COORDINATOR [facility] Platelet Count 551(H) 153 - 416 x10E9/L 05/30/2021 9:11 AM AUDIENCE COORDINATOR [facility] RDW-CV 12.0(L) 12.1 - 14.9 % 05/30/2021 9:11 AM AUDIENCE COORDINATOR [facility] MPV 9.8 9.4 - 12.9 fl 05/30/2021 9:11 AM AUDIENCE COORDINATOR [facility] Neutrophils % 70.0 44.0 - 73.0 % 05/30/2021 9:11 AM AUDIENCE COORDINATOR [facility] Lymphocytes % 14.9(L) 20.0 - 43.0 % 05/30/2021 9:11 AM [facility] Monocytes % 10.3 5.0 - 13.0 % 05/30/2021 9:11 AM [facility] Eosinophils % 4.1 0.0 - 6.0 % 05/30/2021 9:11 AM [facility] Basophils % 0.3 0.0 - 2.0 % 05/30/2021 9:11 AM [facility] Immature Granulocytes 0.4 0 - 1 % 05/30/2021 9:11 AM [facility] Neutrophil Absolute 8.06(H) 2.01 - 7.14 x10E9/L 05/30/2021 9:11 AM [facility] Lymphocytes Absolute 1.72 1.07 - 3.94 x10E9/L 05/30/2021 9:11 AM [facility] Monocytes Absolute 1.18(H) 0.26 - 1.07 x10E9/L 05/30/2021 9:11 AM [facility] Eosinophils Absolute 0.47 0 - 0.47 x10E9/L 05/30/2021 9:11 AM [facility] Basophils Absolute 0.03 0 - 0.08 x10E9/L 05/30/2021 9:11 AM [facility] Immature Granulocytes Absolute 0.05 0.00 - 0.06 x10E9/L 05/30/2021 9:11 AM [facility] nRBC Auto 0 /100 WBC 05/30/2021 9:11 AM [facility] Blood BLOOD SPECIMEN / Unknown Venipuncture / Unknown 05/30/2021 4:00 AM [facility] 05/30/2021 8:27 AM [facility] Fredy Sue LAB - HEMATOLOGY ORD ERABLES [facility] [address] [place] [address] * (ABNORMAL) COMPREHENSIVE METABOLIC PANEL (05/30/2021 4:00 AM [facility]) [facility] Glucose 104 70 - 105 mg/dL 05/30/2021 9:24 AM [facility] Sodium 133(L) 136 - 145 mmol/L 05/30/2021 9:24 AM [facility] Potassium 5.4(H) 3.5 - 5.1 mmol/L 05/30/2021 9:24 AM [facility] Chloride 96(L) 98 - 107 mmol/L 05/30/2021 9:24 AM [facility] CO2 26 23 - 31 mmol/L 05/30/2021 9:24 AM [facility] Calcium 9.8 8.4 - 10.4 mg/dL 05/30/2021 9:24 AM [facility] Anion Gap 11 8 - 18 mmol/L 05/30/2021 9:24 AM [facility] BUN 28(H) 8.9 - 20.6 mg/dL 05/30/2021 9:24 AM [facility] Creatinine 0.75 0.72 - 1.25 mg/dL 05/30/2021 9:24 AM [facility] Alkaline Phosphatase 157(H) 40 - 150 U/L 05/30/2021 9:24 AM [facility] ALT 41 0 - 61 U/L 05/30/2021 9:24 AM [facility] AST 21 5 - 34 U/L 05/30/2021 9:24 AM [facility] Protein Total 7.9 6.4 - 8.3 gm/dL 05/30/2021 9:24 AM [facility] Albumin 3.6 3.5 - 5.2 gm/dL 05/30/2021 9:24 AM [facility] Bilirubin Total 0.2 0.2 - 1.2 mg/dL 05/30/2021 9:24 AM [facility] eGFR by MDRD >60 >60 mL/min/1.7 3m2 05/30/2021 9:24 AM [facility] eGFR by MDRD >60 >60 mL/min/1.7 3m2 05/30/2021 9:24 AM [facility] Blood BLOOD SPECIMEN / Unknown Venipuncture / Unknown 05/30/2021 4:00 AM AUDIENCE COORDINATOR 05/30/2021 8:27 AM [facility] Fredy Sue LAB - CHEMISTRY JOSE ENRIQUE VELA [facility] Organization Address City/State/[facility] Co de Phone Number [facility] [address] [place] [address] documented in this encounter Visit Diagnoses Not on filedocumented in this encounter Care Teams Rehabilitation Services Director Relationship Specialty Start Date End Date Pepe Martel MD [address] [place] [address] 3 [place] [address] PCP - General 08/14/16 documented as of this encounter
--- OUTSIDE RECORDS SUMMARY | 2024-08-23 06:06 | XMS_ITS | Encounter Summary ---
Author Organization [facility] Address [address] [place] [address] Care Team Providers Care Civil Engineer Land Development Name Role Phone Pepe Martel MD Primary Care Provider [phone] Encounter Details Date Type Department Care Team (Late st Contact Info) Description 05/29/2021 Lab Requisition [facility] [address] [place] [address] Lamberto De La Cruz MD [address] [facility] [address] [place] [address] Social History Tobacco Use Types [...] W AUTO DIFFERENTIAL STAT 05/29/2021 3:10 AM HULLER OPERATOR COMPREHENSIVE METABOLIC PANEL STAT 05/29/2021 3:10 AM HULLER OPERATOR documented in this encounter Results * (ABNORMAL) CBC WITH DIFFERENTIAL (05/29/2021 3:10 AM HULLER OPERATOR) WBC 9.0 4.4 - 10.7 x10E9/L 05/29/2021 11:42 AM HULLER OPERATOR [facility] WBC Corrected 05/29/2021 11:42 AM HULLER OPERATOR [facility] RBC 3.78(L) 3.80 - 5.40 x10E12/L 05/29/2021 11:42 AM HULLER OPERATOR [facility] Hemoglobin 10.4(L) 12.0 - 17.6 gm/dL 05/29/2021 11:42 AM HULLER OPERATOR [facility] Hematocrit 33.2(L) 35.2 - 51.7 % 05/29/2021 11:42 AM HULLER OPERATOR [facility] MCV 87.8 80.7 - 98.3 fl 05/29/2021 11:42 AM HULLER OPERATOR [facility] MCH 27.5 26.7 - 34.0 pg 05/29/2021 11:42 AM HULLER OPERATOR [facility] MCHC 31.3 30.8 - 35.9 gm/dL 05/29/2021 11:42 AM HULLER OPERATOR [facility] Platelet Count 507(H) 153 - 416 x10E9/L 05/29/2021 11:42 AM HULLER OPERATOR [facility] RDW-CV 12.0(L) 12.1 - 14.9 % 05/29/2021 11:42 AM HULLER OPERATOR [facility] MPV 9.8 9.4 - 12.9 fl 05/29/2021 11:42 AM HULLER OPERATOR [facility] Neutrophils % 67.3 44.0 - 73.0 % 05/29/2021 11:42 AM HULLER OPERATOR [facility] Lymphocytes % 15.0(L) 20.0 - 43.0 % 05/29/2021 11:42 AM [facility] Monocytes % 12.6 5.0 - 13.0 % 05/29/2021 11:42 AM [facility] Eosinophils % 4.4 0.0 - 6.0 % 05/29/2021 11:42 AM [facility] Basophils % 0.4 0.0 - 2.0 % 05/29/2021 11:42 AM [facility] Immature Granulocytes 0.3 0 - 1 % 05/29/2021 11:42 AM [facility] Neutrophil Absolute 6.07 2.01 - 7.14 x10E9/L 05/29/2021 11:42 AM [facility] Lymphocytes Absolute 1.35 1.07 - 3.94 x10E9/L 05/29/2021 11:42 AM [facility] Monocytes Absolute 1.14(H) 0.26 - 1.07 x10E9/L 05/29/2021 11:42 AM [facility] Eosinophils Absolute 0.40 0 - 0.47 x10E9/L 05/29/2021 11:42 AM [facility] Basophils Absolute 0.04 0 - 0.08 x10E9/L 05/29/2021 11:42 AM [facility] Immature Granulocytes Absolute 0.03 0.00 - 0.06 x10E9/L 05/29/2021 11:42 AM [facility] nRBC Auto 0 /100 WBC 05/29/2021 11:42 AM [facility] Blood BLOOD SPECIMEN / Unknown Venipuncture / Unknown 05/29/2021 3:10 AM HULLER OPERATOR 05/29/2021 11:13 AM [facility] Lamberto De La Cruz MD LAB - HEMATOLOGY ORD ERABLES [facility] [address] [place] [address] * (ABNORMAL) COMPREHENSIVE METABOLIC PANEL (05/29/2021 3:10 AM [facility]) [facility] Glucose 99 70 - 105 mg/dL 05/29/2021 12:05 PM [facility] Sodium 135(L) 136 - 145 mmol/L 05/29/2021 12:05 PM [facility] Potassium 5.4(H) 3.5 - 5.1 mmol/L 05/29/2021 12:05 PM [facility] Chloride 99 98 - 107 mmol/L 05/29/2021 12:05 PM [facility] CO2 24 23 - 31 mmol/L 05/29/2021 12:05 PM [facility] Calcium 9.8 8.4 - 10.4 mg/dL 05/29/2021 12:05 PM [facility] Anion Gap 12 8 - 18 mmol/L 05/29/2021 12:05 PM [facility] BUN 27(H) 8.9 - 20.6 mg/dL 05/29/2021 12:05 PM [facility] Creatinine 0.77 0.72 - 1.25 mg/dL 05/29/2021 12:05 PM [facility] Alkaline Phosphatase 153(H) 40 - 150 U/L 05/29/2021 12:05 PM [facility] ALT 44 0 - 61 U/L 05/29/2021 12:05 PM [facility] AST 27 5 - 34 U/L 05/29/2021 12:05 PM [facility] Protein Total 7.5 6.4 - 8.3 gm/dL 05/29/2021 12:05 PM [facility] Albumin 3.4(L) 3.5 - 5.2 gm/dL 05/29/2021 12:05 PM [facility] Bilirubin Total 0.3 0.2 - 1.2 mg/dL 05/29/2021 12:05 PM [facility] eGFR by MDRD >60 >60 mL/min/1.7 3m2 05/29/2021 12:05 PM [facility] eGFR by MDRD >60 >60 mL/min/1.7 3m2 05/29/2021 12:05 PM [facility] Blood BLOOD SPECIMEN / Unknown Venipuncture / Unknown 05/29/2021 3:10 AM HULLER OPERATOR 05/29/2021 11:13 AM [facility] Lamberto De La Cruz MD LAB - CHEMISTRY JOSE ENRIQUE VELA [facility] Organization Address City/State/ZIP Co de Phone Number [facility] [address] [place] [address] documented in this encounter Visit Diagnoses Not on filedocumented in this encounter Care Teams Civil Engineer Land Development Relationship Specialty Start Date End Date Pepe Martel MD [address] [place] [address] PCP - General 08/14/16 documented as of this encounter
--- OUTSIDE RECORDS SUMMARY | 2024-08-23 06:06 | XMS_ITS | Encounter Summary ---
Author Organization [facility] Health Address [address] [facility] [place] [address] Care Team Providers Care Card Runner Name Role Phone Pepe Martel MD Primary Care Provider [phone] Encounter Details Date Type Department Care Team (Late st Contact Info) Description 05/26/2021 Lab Requisition [facility] [address] [place] [address] Lamberto De La Cruz MD [address] [facility] [address] [place] [address] Social History Tobacco Use Types [...] W AUTO DIFFERENTIAL STAT 05/26/2021 4:30 AM HRIS ADMINISTRATOR COMPREHENSIVE METABOLIC PANEL STAT 05/26/2021 4:30 AM HRIS ADMINISTRATOR documented in this encounter Results * (ABNORMAL) CBC WITH DIFFERENTIAL (05/26/2021 4:30 AM HRIS ADMINISTRATOR) WBC 10.2 4.4 - 10.7 x10E9/L 05/26/2021 10:28 AM HRIS ADMINISTRATOR [facility] WBC Corrected 05/26/2021 10:28 AM HRIS ADMINISTRATOR [facility] RBC 3.89 3.80 - 5.40 x10E12/L 05/26/2021 10:28 AM HRIS ADMINISTRATOR [facility] Hemoglobin 10.8(L) 12.0 - 17.6 gm/dL 05/26/2021 10:28 AM HRIS ADMINISTRATOR [facility] Hematocrit 33.6(L) 35.2 - 51.7 % 05/26/2021 10:28 AM HRIS ADMINISTRATOR [facility] MCV 86.4 80.7 - 98.3 fl 05/26/2021 10:28 AM HRIS ADMINISTRATOR [facility] MCH 27.8 26.7 - 34.0 pg 05/26/2021 10:28 AM HRIS ADMINISTRATOR [facility] MCHC 32.1 30.8 - 35.9 gm/dL 05/26/2021 10:28 AM HRIS ADMINISTRATOR [facility] Platelet Count 442(H) 153 - 416 x10E9/L 05/26/2021 10:28 AM HRIS ADMINISTRATOR [facility] RDW-CV 12.1 12.1 - 14.9 % 05/26/2021 10:28 AM HRIS ADMINISTRATOR [facility] MPV 10.0 9.4 - 12.9 fl 05/26/2021 10:28 AM HRIS ADMINISTRATOR [facility] Neutrophils % 75.1(H) 44.0 - 73.0 % 05/26/2021 10:28 AM HRIS ADMINISTRATOR [facility] Lymphocytes % 10.9(L) 20.0 - 43.0 % 05/26/2021 10:28 AM [facility] Monocytes % 10.6 5.0 - 13.0 % 05/26/2021 10:28 AM [facility] Eosinophils % 2.9 0.0 - 6.0 % 05/26/2021 10:28 AM [facility] Basophils % 0.2 0.0 - 2.0 % 05/26/2021 10:28 AM [facility] Immature Granulocytes 0.3 0 - 1 % 05/26/2021 10:28 AM [facility] Neutrophil Absolute 7.63(H) 2.01 - 7.14 x10E9/L 05/26/2021 10:28 AM [facility] Lymphocytes Absolute 1.11 1.07 - 3.94 x10E9/L 05/26/2021 10:28 AM [facility] Monocytes Absolute 1.08(H) 0.26 - 1.07 x10E9/L 05/26/2021 10:28 AM [facility] Eosinophils Absolute 0.29 0 - 0.47 x10E9/L 05/26/2021 10:28 AM [facility] Basophils Absolute 0.02 0 - 0.08 x10E9/L 05/26/2021 10:28 AM [facility] Immature Granulocytes Absolute 0.03 0.00 - 0.06 x10E9/L 05/26/2021 10:28 AM [facility] nRBC Auto 0 /100 WBC 05/26/2021 10:28 AM [facility] Blood BLOOD SPECIMEN / Unknown Venipuncture / Unknown 05/26/2021 4:30 AM [facility] 05/26/2021 9:55 AM [facility] Lamberto De La Cruz MD LAB - HEMATOLOGY ORD ERABLES [facility] [address] [place] [address] * (ABNORMAL) COMPREHENSIVE METABOLIC PANEL (05/26/2021 4:30 AM [facility]) [facility] Glucose 98 70 - 105 mg/dL 05/26/2021 10:52 AM [facility] Sodium 135(L) 136 - 145 mmol/L 05/26/2021 10:52 AM [facility] Potassium 5.0 3.5 - 5.1 mmol/L 05/26/2021 10:52 AM [facility] Chloride 99 98 - 107 mmol/L 05/26/2021 10:52 AM [facility] CO2 25 23 - 31 mmol/L 05/26/2021 10:52 AM [facility] Calcium 9.4 8.4 - 10.4 mg/dL 05/26/2021 10:52 AM [facility] Anion Gap 11 8 - 18 mmol/L 05/26/2021 10:52 AM [facility] BUN 20 8.9 - 20.6 mg/dL 05/26/2021 10:52 AM [facility] Creatinine 0.81 0.72 - 1.25 mg/dL 05/26/2021 10:52 AM [facility] Alkaline Phosphatase 109 40 - 150 U/L 05/26/2021 10:52 AM [facility] ALT 32 0 - 61 U/L 05/26/2021 10:52 AM [facility] AST 21 5 - 34 U/L 05/26/2021 10:52 AM [facility] Protein Total 7.3 6.4 - 8.3 gm/dL 05/26/2021 10:52 AM [facility] Albumin 3.6 3.5 - 5.2 gm/dL 05/26/2021 10:52 AM [facility] Bilirubin Total <0.1(L) 0.2 - 1.2 mg/dL 05/26/2021 10:52 AM [facility] eGFR by MDRD >60 >60 mL/min/1.7 3m2 05/26/2021 10:52 AM [facility] eGFR by MDRD >60 >60 mL/min/1.7 3m2 05/26/2021 10:52 AM [facility] Blood BLOOD SPECIMEN / Unknown Venipuncture / Unknown 05/26/2021 4:30 AM HRIS ADMINISTRATOR 05/26/2021 9:55 AM [facility] Lamberto De La Cruz MD LAB - CHEMISTRY JOSE ENRIQUE VELA [place] Organization Address City/State/ZIP Co de Phone Number [facility] [address] [place] [address] documented in this encounter Visit Diagnoses Not on filedocumented in this encounter Care Teams Card Runner Relationship Specialty Start Date End Date Pepe Martel MD [address] [place] [id number] PCP - General 08/14/16 documented as of this encounter
--- OUTSIDE RECORDS SUMMARY | 2024-08-23 06:06 | XMS_ITS | Encounter Summary ---
Author Organization [facility] Address [address] [facility] [place] [address] Care Team Providers Care Hospice Rn Name Role Phone Pepe Martel MD Primary Care Provider [phone] Encounter Details Date Type Department Care Team (Late st Contact Info) Description 04/28/2021 Lab Requisition [facility] [address] [place] [address] Davon Laws MD [address] [place] [address] Social History Tobacco Use Types [...] W AUTO DIFFERENTIAL STAT 04/28/2021 3:36 AM TOUCH UP EDGER COMPREHENSIVE METABOLIC PANEL STAT 04/28/2021 3:36 AM TOUCH UP EDGER VANCOMYCIN LEVEL TROUGH STAT 04/28/2021 3:36 AM TOUCH UP EDGER documented in this encounter Results * (ABNORMAL) COMPREHENSIVE METABOLIC PANEL (04/28/2021 3:36 AM TOUCH UP EDGER) Glucose 93 70 - 105 mg/dL 04/28/2021 11:17 AM TOUCH UP EDGER [facility] Sodium 138 136 - 145 mmol/L 04/28/2021 11:17 AM TOUCH UP EDGER [facility] Potassium 4.9 3.5 - 5.1 mmol/L 04/28/2021 11:17 AM TOUCH UP EDGER [facility] Chloride 104 98 - 107 mmol/L 04/28/2021 11:17 AM TOUCH UP EDGER [facility] CO2 21(L) 23 - 31 mmol/L 04/28/2021 11:17 AM TOUCH UP EDGER [facility] Calcium 9.5 8.4 - 10.4 mg/dL 04/28/2021 11:17 AM TOUCH UP EDGER [facility] Anion Gap 13 8 - 18 mmol/L 04/28/2021 11:17 AM [facility] BUN 33(H) 8.9 - 20.6 mg/dL 04/28/2021 11:17 AM [facility] Creatinine 0.96 0.72 - 1.25 mg/dL 04/28/2021 11:17 AM TOUCH UP EDGER [facility] Alkaline Phosphatase 73 40 - 150 U/L 04/28/2021 11:17 AM TOUCH UP EDGER [facility] ALT 21 0 - 61 U/L 04/28/2021 11:17 AM TOUCH UP EDGER [facility] AST 20 5 - 34 U/L 04/28/2021 11:17 AM [facility] Protein Total 7.4 6.4 - 8.3 gm/dL 04/28/2021 11:17 AM [facility] Albumin 3.6 3.5 - 5.2 gm/dL 04/28/2021 11:17 AM [facility] Bilirubin Total 0.3 0.2 - 1.2 mg/dL 04/28/2021 11:17 AM [facility] eGFR by MDRD >60 >60 mL/min/1.7 3m2 04/28/2021 11:17 AM [facility] eGFR by MDRD >60 >60 mL/min/1.7 3m2 04/28/2021 11:17 AM [facility] Blood BLOOD SPECIMEN / Unknown Venipuncture / Unknown 04/28/2021 3:36 AM TOUCH UP EDGER 04/28/2021 10:25 AM TOUCH UP EDGER Davon Laws MD [facility] Organization Address City/State/ZIP Co de Phone Number [facility] [address] [place] [phone] * (ABNORMAL) CBC WITH DIFFERENTIAL (04/28/2021 3:36 AM [facility]) WBC 8.1 4.4 - 10.7 x10E9/L 04/28/2021 10:34 AM [facility] WBC Corrected 04/28/2021 10:34 AM [facility] RBC 3.89 3.80 - 5.40 x10E12/L 04/28/2021 10:34 AM [facility] Hemoglobin 10.8(L) 12.0 - 17.6 gm/dL 04/28/2021 10:34 AM [facility] Hematocrit 34.8(L) 35.2 - 51.7 % 04/28/2021 10:34 AM [facility] MCV 89.5 80.7 - 98.3 fl 04/28/2021 10:34 AM [facility] MCH 27.8 26.7 - 34.0 pg 04/28/2021 10:34 AM [facility] MCHC 31.0 30.8 - 35.9 gm/dL 04/28/2021 10:34 AM [facility] Platelet Count 407 153 - 416 x10E9/L 04/28/2021 10:34 AM [facility] RDW-CV 13.8 12.1 - 14.9 % 04/28/2021 10:34 AM [facility] MPV 10.5 9.4 - 12.9 fl 04/28/2021 10:34 AM [facility] Neutrophils % 66.1 44.0 - 73.0 % 04/28/2021 10:34 AM [facility] Lymphocytes % 14.5(L) 20.0 - 43.0 % 04/28/2021 10:34 AM [facility] Monocytes % 13.6(H) 5.0 - 13.0 % 04/28/2021 10:34 AM [facility] Eosinophils % 5.0 0.0 - 6.0 % 04/28/2021 10:34 AM [facility] Basophils % 0.6 0.0 - 2.0 % 04/28/2021 10:34 AM [facility] Immature Granulocytes 0.2 0 - 1 % 04/28/2021 10:34 AM [facility] Neutrophil Absolute 5.34 2.01 - 7.14 x10E9/L 04/28/2021 10:34 AM [facility] Lymphocytes Absolute 1.17 1.07 - 3.94 x10E9/L 04/28/2021 10:34 AM [facility] Monocytes Absolute 1.10(H) 0.26 - 1.07 x10E9/L 04/28/2021 10:34 AM [facility] Eosinophils Absolute 0.40 0 - 0.47 x10E9/L 04/28/2021 10:34 AM [facility] Basophils Absolute 0.05 0 - 0.08 x10E9/L 04/28/2021 10:34 AM [facility] Immature Granulocytes Absolute 0.02 0.00 - 0.06 x10E9/L 04/28/2021 10:34 AM [facility] nRBC Auto 0 /100 WBC 04/28/2021 10:34 AM [facility] Blood BLOOD SPECIMEN / Unknown Venipuncture / Unknown 04/28/2021 3:36 AM TOUCH UP EDGER 04/28/2021 10:25 AM [facility] Davon Laws MD LAB - HEMATOLOGY ORD ERABLES [facility] [address] [place] [address] * (ABNORMAL) VANCOMYCIN LEVEL TROUGH (04/28/2021 3:36 AM TOUCH UP EDGER) Vancomycin Trough 20.3(H) 10.0 - 20.0 ug/mL 04/28/2021 10:54 AM TOUCH UP EDGER [facility] Blood BLOOD SPECIMEN / Unknown Venipuncture / Unknown 04/28/2021 3:36 AM TOUCH UP EDGER 04/28/2021 10:22 AM TOUCH UP EDGER Davon Laws MD LAB - CHEMISTRY ORDNolan VELA [facility] [address] [place] [address] documented in this encounter Visit Diagnoses Not on filedocumented in this encounter Care Teams Hospice Rn Relationship Specialty Start Date End Date Pepe Martel MD [address] [place] [phone] PCP - General 08/14/16 documented as of this encounter
--- OUTSIDE RECORDS SUMMARY | 2024-08-23 06:06 | XMS_ITS | Encounter Summary ---
Author Organization [facility] Health Address [address] [facility] [place] [address] Care Team Providers Care Diet Aid Name Role Phone Pepe Martel MD Primary Care Provider Encounter Details Date Type Department Care Team (Late st Contact Info) Description 05/15/2021 Lab Requisition [facility] [address] [place] [address] Lamberto De La Cruz MD [address] [facility] [address] [place] [address] Social History Tobacco Use Types [...] W AUTO DIFFERENTIAL STAT 05/15/2021 3:11 AM ADMINISTRATIVE LIAISON COMPREHENSIVE METABOLIC PANEL STAT 05/15/2021 3:11 AM ADMINISTRATIVE LIAISON documented in this encounter Results * (ABNORMAL) CBC WITH DIFFERENTIAL (05/15/2021 3:11 AM ADMINISTRATIVE LIAISON) WBC 9.7 4.4 - 10.7 x10E9/L 05/15/2021 9:38 AM ADMINISTRATIVE LIAISON [facility] WBC Corrected 05/15/2021 9:38 AM ADMINISTRATIVE LIAISON [facility] RBC 4.26 3.80 - 5.40 x10E12/L 05/15/2021 9:38 AM ADMINISTRATIVE LIAISON [facility] Hemoglobin 11.8(L) 12.0 - 17.6 gm/dL 05/15/2021 9:38 AM ADMINISTRATIVE LIAISON [facility] Hematocrit 38.7 35.2 - 51.7 % 05/15/2021 9:38 AM ADMINISTRATIVE LIAISON [facility] MCV 90.8 80.7 - 98.3 fl 05/15/2021 9:38 AM ADMINISTRATIVE LIAISON [facility] MCH 27.7 26.7 - 34.0 pg 05/15/2021 9:38 AM ADMINISTRATIVE LIAISON [facility] MCHC 30.5(L) 30.8 - 35.9 gm/dL 05/15/2021 9:38 AM ADMINISTRATIVE LIAISON [facility] Platelet Count 403 153 - 416 x10E9/L 05/15/2021 9:38 AM ADMINISTRATIVE LIAISON [facility] RDW-CV 12.4 12.1 - 14.9 % 05/15/2021 9:38 AM ADMINISTRATIVE LIAISON [facility] MPV 10.5 9.4 - 12.9 fl 05/15/2021 9:38 AM ADMINISTRATIVE LIAISON [facility] Neutrophils % 65.0 44.0 - 73.0 % 05/15/2021 9:38 AM ADMINISTRATIVE LIAISON [facility] Lymphocytes % 19.5(L) 20.0 - 43.0 % 05/15/2021 9:38 AM ADMINISTRATIVE LIAISON [facility] Monocytes % 11.6 5.0 - 13.0 % 05/15/2021 9:38 AM [facility] Eosinophils % 3.2 0.0 - 6.0 % 05/15/2021 9:38 AM [facility] Basophils % 0.5 0.0 - 2.0 % 05/15/2021 9:38 AM [facility] Immature Granulocytes 0.2 0 - 1 % 05/15/2021 9:38 AM [facility] Neutrophil Absolute 6.31 2.01 - 7.14 x10E9/L 05/15/2021 9:38 AM [facility] Lymphocytes Absolute 1.89 1.07 - 3.94 x10E9/L 05/15/2021 9:38 AM [facility] Monocytes Absolute 1.13(H) 0.26 - 1.07 x10E9/L 05/15/2021 9:38 AM [facility] Eosinophils Absolute 0.31 0 - 0.47 x10E9/L 05/15/2021 9:38 AM [facility] Basophils Absolute 0.05 0 - 0.08 x10E9/L 05/15/2021 9:38 AM [facility] Immature Granulocytes Absolute 0.02 0.00 - 0.06 x10E9/L 05/15/2021 9:38 AM [facility] nRBC Auto 0 /100 WBC 05/15/2021 9:38 AM [facility] Blood BLOOD SPECIMEN / Unknown Venipuncture / Unknown 05/15/2021 3:11 AM ADMINISTRATIVE LIAISON 05/15/2021 8:27 AM [facility] Lamberto De La Cruz MD LAB - HEMATOLOGY ORD ERABLES [facility] [address] [place] [address] * (ABNORMAL) COMPREHENSIVE METABOLIC PANEL (05/15/2021 3:11 AM [facility]) [facility] Glucose 114(H) 70 - 105 mg/dL 05/15/2021 9:33 AM [facility] Sodium 142 136 - 145 mmol/L 05/15/2021 9:33 AM [facility] Potassium 4.9 3.5 - 5.1 mmol/L 05/15/2021 9:33 AM [facility] Chloride 102 98 - 107 mmol/L 05/15/2021 9:33 AM [facility] CO2 27 23 - 31 mmol/L 05/15/2021 9:33 AM [facility] Calcium 10.0 8.4 - 10.4 mg/dL 05/15/2021 9:33 AM [facility] Anion Gap 13 8 - 18 mmol/L 05/15/2021 9:33 AM [facility] BUN 35(H) 8.9 - 20.6 mg/dL 05/15/2021 9:33 AM [facility] Creatinine 1.18 0.72 - 1.25 mg/dL 05/15/2021 9:33 AM [facility] Alkaline Phosphatase 118 40 - 150 U/L 05/15/2021 9:33 AM [facility] ALT 42 0 - 61 U/L 05/15/2021 9:33 AM [facility] AST 22 5 - 34 U/L 05/15/2021 9:33 AM [facility] Protein Total 8.2 6.4 - 8.3 gm/dL 05/15/2021 9:33 AM [facility] Albumin 4.2 3.5 - 5.2 gm/dL 05/15/2021 9:33 AM [facility] Bilirubin Total 0.2 0.2 - 1.2 mg/dL 05/15/2021 9:33 AM [facility] eGFR by MDRD >60 >60 mL/min/1.7 3m2 05/15/2021 9:33 AM [facility] eGFR by MDRD >60 >60 mL/min/1.7 3m2 05/15/2021 9:33 AM [facility] Blood BLOOD SPECIMEN / Unknown Venipuncture / Unknown 05/15/2021 3:11 AM ADMINISTRATIVE LIAISON 05/15/2021 8:27 AM [facility] Lamberto De La Cruz MD LAB - CHEMISTRY JOSE ENRIQUE VELA [facility] Organization Address City/State/ZIP Co de Phone Number [facility] [address] [place] [address] documented in this encounter Visit Diagnoses Not on filedocumented in this encounter Care Teams Diet Aid Relationship Specialty Start Date End Date Pepe Martel MD [address] [place] [id number] PCP - General 08/14/16 documented as of this encounter
--- OUTSIDE RECORDS SUMMARY | 2024-08-23 06:06 | XMS_ITS | Encounter Summary ---
Author Organization [facility] Health Address [address] [place] [address] Care Team Providers Care Deodorizer Operator Name Role Phone Pepe Martel MD Primary Care Provider [phone] Encounter Details Date Type Department Care Team (Late st Contact Info) Description 05/01/2021 Lab Requisition [facility] [address] [place] [address] Lamberto De La Cruz MD [address] [facility] [address] [place] [address] Social History Tobacco Use Types [...] W AUTO DIFFERENTIAL STAT 05/01/2021 2:25 AM AIR INTELLIGENCE OFFICER COMPREHENSIVE METABOLIC PANEL STAT 05/01/2021 2:25 AM AIR INTELL[employer] OFFICER documented in this encounter Results * (ABNORMAL) CBC WITH DIFFERENTIAL (05/01/2021 2:25 AM AIR INTELLIGENCE OFFICER) WBC 7.1 4.4 - 10.7 x10E9/L 05/01/2021 10:19 AM AIR INTELLIGENCE OFFICER [facility] WBC Corrected 05/01/2021 10:19 AM AIR INTELLIGENCE OFFICER [facility] RBC 3.68(L) 3.80 - 5.40 x10E12/L 05/01/2021 10:19 AM AIR INTELLIGENCE OFFICER [facility] Hemoglobin 10.1(L) 12.0 - 17.6 gm/dL 05/01/2021 10:19 AM AIR INTELLIGENCE OFFICER [facility] Hematocrit 33.8(L) 35.2 - 51.7 % 05/01/2021 10:19 AM AIR INTELLIGENCE OFFICER [facility] MCV 91.8 80.7 - 98.3 fl 05/01/2021 10:19 AM AIR INTELLIGENCE OFFICER [facility] MCH 27.4 26.7 - 34.0 pg 05/01/2021 10:19 AM AIR INTELLIGENCE OFFICER [facility] MCHC 29.9(L) 30.8 - 35.9 gm/dL 05/01/2021 10:19 AM AIR INTELLIGENCE OFFICER [facility] Platelet Count 407 153 - 416 x10E9/L 05/01/2021 10:19 AM AIR INTELLIGENCE OFFICER [facility] RDW-CV 13.7 12.1 - 14.9 % 05/01/2021 10:19 AM AIR INTELLIGENCE OFFICER [facility] MPV 10.5 9.4 - 12.9 fl 05/01/2021 10:19 AM AIR INTELLIGENCE OFFICER [facility] Neutrophils % 64.8 44.0 - 73.0 % 05/01/2021 10:19 AM AIR INTELLIGENCE OFFICER [facility] Lymphocytes % 19.1(L) 20.0 - 43.0 % 05/01/2021 10:[address] [facility] Monocytes % 10.5 5.0 - 13.0 % 05/01/2021 10:[address] [facility] Eosinophils % 5.1 0.0 - 6.0 % 05/01/2021 10:[address] [facility] Basophils % 0.4 0.0 - 2.0 % 05/01/2021 10:[address] [facility] Immature Granulocytes 0.1 0 - 1 % 05/01/2021 10:[address] [facility] Neutrophil Absolute 4.58 2.01 - 7.14 x10E9/L 05/01/2021 10:[address] [facility] Lymphocytes Absolute 1.35 1.07 - 3.94 x10E9/L 05/01/2021 10:[address] [facility] Monocytes Absolute 0.74 0.26 - 1.07 x10E9/L 05/01/2021 10:[address] [facility] Eosinophils Absolute 0.36 0 - 0.47 x10E9/L 05/01/2021 10:[address] [facility] Basophils Absolute 0.03 0 - 0.08 x10E9/L 05/01/2021 10:[address] [facility] Immature Granulocytes Absolute 0.01 0.00 - 0.06 x10E9/L 05/01/2021 10:[address] [facility] nRBC Auto 0 /100 WBC 05/01/2021 10:[address] [facility] Blood BLOOD SPECIMEN / Unknown Venipuncture / Unknown 05/01/2021 2:25 AM [employer] 05/01/2021 10:09 AM [facility] Lamberto De La Cruz MD LAB - HEMATOLOGY ORD ERABLES [facility] [address] [place] [address] * (ABNORMAL) COMPREHENSIVE METABOLIC PANEL (05/01/2021 2:25 AM [facility]) [facility] Glucose 120(H) 70 - 105 mg/dL 05/01/2021 10:[address] [facility] Sodium 140 136 - 145 mmol/L 05/01/2021 10:[address] [facility] Potassium 4.9 3.5 - 5.1 mmol/L 05/01/2021 10:[address] [facility] Chloride 104 98 - 107 mmol/L 05/01/2021 10:[address] [facility] CO2 23 23 - 31 mmol/L 05/01/2021 10:[address] [facility] Calcium 9.7 8.4 - 10.4 mg/dL 05/01/2021 10:[address] [facility] Anion Gap 13 8 - 18 mmol/L 05/01/2021 10:[address] [facility] BUN 31(H) 8.9 - 20.6 mg/dL 05/01/2021 10:[address] [facility] Creatinine 0.93 0.72 - 1.25 mg/dL 05/01/2021 10:[address] [facility] Alkaline Phosphatase 79 40 - 150 U/L 05/01/2021 10:[address] [facility] ALT 21 0 - 61 U/L 05/01/2021 10:[address] [facility] AST 22 5 - 34 U/L 05/01/2021 10:[address] [facility] Protein Total 7.3 6.4 - 8.3 gm/dL 05/01/2021 10:[address] [facility] Albumin 3.5 3.5 - 5.2 gm/dL 05/01/2021 10:[address] [facility] Bilirubin Total 0.3 0.2 - 1.2 mg/dL 05/01/2021 10:[address] [facility] eGFR by MDRD >60 >60 mL/min/1.7 3m2 05/01/2021 10:[address] [facility] eGFR by MDRD >60 >60 mL/min/1.7 3m2 05/01/2021 10:[address] [facility] Blood BLOOD SPECIMEN / Unknown Venipuncture / Unknown 05/01/2021 2:25 AM [employer] 05/01/2021 10:09 AM [facility] Lamberto De La Cruz MD LAB - CHEMISTRY [facility] Organization Address City/State/ZIP Co de Phone Number [facility] [address] [place] [address] documented in this encounter Visit Diagnoses Not on filedocumented in this encounter Care Teams Deodorizer Operator Relationship Specialty Start Date End Date Pepe Martel MD [address] [place] [id number] PCP - General 08/14/16 documented as of this encounter
--- OUTSIDE RECORDS SUMMARY | 2024-08-23 06:06 | XMS_ITS | Encounter Summary ---
Author Organization [facility] Address [address] [place] [address] Care Team Providers Care Vending Machine Host/Hostess Name Role Phone Pepe Martel MD Primary Care Provider [phone] Encounter Details Date Type Department Care Team (Late st Contact Info) Description 04/25/2021 Lab Requisition [facility] [address] [place] [address] Davon Laws MD [address] [place] [address] Social History Tobacco Use Types [...] VANCOMYCIN LEVEL TROUGH STAT 04/25/2021 2:00 AM DIRECTOR OF TEENAGE ACTIVITIES documented in this encounter Results * VANCOMYCIN LEVEL TROUGH (04/25/2021 2:00 AM DIRECTOR OF TEENAGE ACTIVITIES) Vancomycin Trough 19.5 10.0 - 20.0 ug/mL 04/25/2021 9:15 AM DIRECTOR OF TEENAGE ACTIVITIES [facility] Blood BLOOD SPECIMEN / Unknown Venipuncture / Unknown 04/25/2021 2:00 AM DIRECTOR OF TEENAGE ACTIVITIES 04/25/2021 8:44 AM DIRECTOR OF TEENAGE ACTIVITIES Davon Laws MD LAB - CHEMISTRY JOSE ENRIQUE VELA [facility] Organization Address City/State/[facility] Co de Phone Number [facility] [address] [place] [address] documented in this encounter Visit Diagnoses Not on filedocumented in this encounter Care Teams Vending Machine Host/Hostess Relationship Specialty Start Date End Date Pepe Martel MD [address] [place] [id number] PCP - General 08/14/16 documented as of this encounter
--- OUTSIDE RECORDS SUMMARY | 2024-08-23 06:06 | XMS_ITS | Encounter Summary ---
Author Organization [facility] Health Address [address] [place] [address] Care Team Providers Care Coating Machine Helper Name Role Phone Pepe Martel MD Primary Care Provider [phone] Encounter Details Date Type Department Care Team (Late st Contact Info) Description 06/12/2021 Lab Requisition [facility] [address] [place] [address] Lamberto De La Cruz MD [address] [facility] [address] [place] [address] Social History [...] W AUTO DIFFERENTIAL STAT 06/12/2021 3:30 AM RIBBON TIER COMPREHENSIVE METABOLIC PANEL STAT 06/12/2021 3:30 AM RIBBON TIER documented in this encounter Results * (ABNORMAL) CBC WITH DIFFERENTIAL (06/12/2021 3:30 AM RIBBON TIER) WBC 9.4 4.4 - 10.7 x10E9/L 06/12/2021 9:40 AM RIBBON TIER [facility] WBC Corrected 06/12/2021 9:40 AM RIBB[facility] TIER [facility] RBC 3.97 3.80 - 5.40 x10E12/L 06/12/2021 9:40 AM R[facility] TIER [facility] Hemoglobin 10.8(L) 12.0 - 17.6 gm/dL 06/12/2021 9:40 AM RIBB[facility] TIER [facility] Hematocrit 34.2(L) 35.2 - 51.7 % 06/12/2021 9:40 AM RIBBON TIER [facility] MCV 86.1 80.7 - 98.3 fl 06/12/2021 9:40 AM [facility] TIER [facility] MCH 27.2 26.7 - 34.0 pg 06/12/2021 9:40 AM R[facility] TIER [facility] MCHC 31.6 30.8 - 35.9 gm/dL 06/12/2021 9:40 AM RIBB[facility] TIER [facility] Platelet Count 469(H) 153 - 416 x10E9/L 06/12/2021 9:40 AM RIB[facility] TIER [facility] RDW-CV 12.3 12.1 - 14.9 % 06/12/2021 9:40 AM R[facility] TIER [facility] MPV 9.5 9.4 - 12.9 fl 06/12/2021 9:40 AM [facility] Neutrophils % 71.0 44.0 - 73.0 % 06/12/2021 9:40 AM [facility] Lymphocytes % 16.0(L) 20.0 - 43.0 % 06/12/2021 9:40 AM [facility] Monocytes % 9.4 5.0 - 13.0 % 06/12/2021 9:40 AM [facility] Eosinophils % 3.1 0.0 - 6.0 % 06/12/2021 9:40 AM [facility] Basophils % 0.3 0.0 - 2.0 % 06/12/2021 9:40 AM [facility] Immature Granulocytes 0.2 0 - 1 % 06/12/2021 9:40 AM [facility] Neutrophil Absolute 6.68 2.01 - 7.14 x10E9/L 06/12/2021 9:40 AM [facility] Lymphocytes Absolute 1.51 1.07 - 3.94 x10E9/L 06/12/2021 9:40 AM [facility] Monocytes Absolute 0.88 0.26 - 1.07 x10E9/L 06/12/2021 9:40 AM [facility] Eosinophils Absolute 0.29 0 - 0.47 x10E9/L 06/12/2021 9:40 AM [facility] Basophils Absolute 0.03 0 - 0.08 x10E9/L 06/12/2021 9:40 AM [facility] Immature Granulocytes Absolute 0.02 0.00 - 0.06 x10E9/L 06/12/2021 9:40 AM [facility] nRBC Auto 0 /100 WBC 06/12/2021 9:40 AM [facility] Blood BLOOD SPECIMEN / Unknown Venipuncture / Unknown 06/12/2021 3:30 AM RIBBON TIER 06/12/2021 8:38 AM [facility] Lamberto De La Cruz MD LAB - HEMATOLOGY ORD ERABLES [facility] [address] [place] [address] * (ABNORMAL) COMPREHENSIVE METABOLIC PANEL (06/12/2021 3:30 AM [facility]) [facility] Glucose 126(H) 70 - 105 mg/dL 06/12/2021 10:03 AM [facility] Sodium 139 136 - 145 mmol/L 06/12/2021 10:03 AM [facility] Potassium 4.7 3.5 - 5.1 mmol/L 06/12/2021 10:03 AM [facility] Chloride 103 98 - 107 mmol/L 06/12/2021 10:03 AM [facility] CO2 23 23 - 31 mmol/L 06/12/2021 10:03 AM [facility] Calcium 9.7 8.4 - 10.4 mg/dL 06/12/2021 10:03 AM [facility] Anion Gap 13 8 - 18 mmol/L 06/12/2021 10:03 AM [facility] BUN 35(H) 8.9 - 20.6 mg/dL 06/12/2021 10:03 AM [facility] Creatinine 0.94 0.72 - 1.25 mg/dL 06/12/2021 10:03 AM [facility] Alkaline Phosphatase 155(H) 40 - 150 U/L 06/12/2021 10:03 AM [facility] ALT 40 0 - 61 U/L 06/12/2021 10:03 AM [facility] AST 23 5 - 34 U/L 06/12/2021 10:03 AM [facility] Protein Total 8.1 6.4 - 8.3 gm/dL 06/12/2021 10:03 AM [facility] Albumin 3.5 3.5 - 5.2 gm/dL 06/12/2021 10:03 AM [facility] Bilirubin Total 0.2 0.2 - 1.2 mg/dL 06/12/2021 10:03 AM [facility] eGFR by MDRD >60 >60 mL/min/1.7 3m2 06/12/2021 10:03 AM [facility] eGFR by MDRD >60 >60 mL/min/1.7 3m2 06/12/2021 10:03 AM [facility] Blood BLOOD SPECIMEN / Unknown Venipuncture / Unknown 06/12/2021 3:30 AM RIBBON TIER 06/12/2021 8:38 AM [facility] Lamberto De La Cruz MD LAB - CHEMISTRY JOSE ENRIQUE VELA [facility] Organization Address City/State/ZIP Co de Phone Number [facility] [address] [place] [address] documented in this encounter Visit Diagnoses Not on filedocumented in this encounter Care Teams Coating Machine Helper Relationship Specialty Start Date End Date Pepe Martel MD [address] [place] [id number] PCP - General 08/14/16 documented as of this encounter
--- OUTSIDE RECORDS SUMMARY | 2024-08-23 06:06 | XMS_ITS | Encounter Summary ---
Author Organization [facility] Health Address [address] [place] [address] Care Team Providers Care Buckle Assembler Name Role Phone Pepe Martel MD Primary Care Provider [phone] Encounter Details Date Type Department Care Team (Late st Contact Info) Description 05/05/2021 Lab Requisition [facility] [address] [place] [address] Lamberto De La Cruz MD [address] [facility] [address] [place] [address] Social History Tobacco Use Types [...] W AUTO DIFFERENTIAL STAT 05/05/2021 5:32 AM HAY [facility] COMPREHENSIVE METABOLIC PANEL STAT 05/05/2021 5:32 AM [facility] documented in this encounter Results * (ABNORMAL) COMPREHENSIVE METABOLIC PANEL (05/05/2021 5:32 AM [facility]) Glucose 119(H) 70 - 105 mg/dL 05/05/2021 1:08 PM [facility] Sodium 137 136 - 145 mmol/L 05/05/2021 1:08 PM [facility] Potassium 4.6 3.5 - 5.1 mmol/L 05/05/2021 1:08 PM [facility] Chloride 100 98 - 107 mmol/L 05/05/2021 1:08 PM [facility] CO2 24 23 - 31 mmol/L 05/05/2021 1:08 PM [facility] Calcium 9.7 8.4 - 10.4 mg/dL 05/05/2021 1:08 PM [facility] Anion Gap 13 8 - 18 mmol/L 05/05/2021 1:08 PM [facility] BUN 33(H) 8.9 - 20.6 mg/dL 05/05/2021 1:08 PM [facility] Creatinine 0.85 0.72 - 1.25 mg/dL 05/05/2021 1:08 PM [facility] Alkaline Phosphatase 98 40 - 150 U/L 05/05/2021 1:08 PM [facility] ALT 34 0 - 61 U/L 05/05/2021 1:08 PM [facility] AST 22 5 - 34 U/L 05/05/2021 1:08 PM [facility] Protein Total 7.3 6.4 - 8.3 gm/dL 05/05/2021 1:08 PM [facility] Albumin 3.7 3.5 - 5.2 gm/dL 05/05/2021 1:08 PM [facility] Bilirubin Total 0.3 0.2 - 1.2 mg/dL 05/05/2021 1:08 PM [facility] eGFR by MDRD >60 >60 mL/min/1.7 3m2 05/05/2021 1:08 PM [facility] eGFR by MDRD >60 >60 mL/min/1.7 3m2 05/05/2021 1:08 PM [facility] Blood BLOOD SPECIMEN / Unknown Venipuncture / Unknown 05/05/2021 5:32 AM [facility] 05/05/2021 12:02 PM [facility] Lamberto De La Cruz MD LAB - CHEMISTRY ORDE MIR[facility] Organization Address City/State/ZIP Co de Phone Number [facility] [address] [place] [address] * (ABNORMAL) CBC WITH DIFFERENTIAL (05/05/2021 5:32 AM [facility]) WBC 6.5 4.4 - 10.7 x10E9/L 05/05/2021 12:31 PM [facility] WBC Corrected 05/05/2021 12:31 PM [facility] RBC 3.95 3.80 - 5.40 x10E12/L 05/05/2021 12:31 PM [facility] Hemoglobin 11.0(L) 12.0 - 17.6 gm/dL 05/05/2021 12:31 PM [facility] Hematocrit 35.4 35.2 - 51.7 % 05/05/2021 12:31 PM [facility] MCV 89.6 80.7 - 98.3 fl 05/05/2021 12:31 PM [facility] MCH 27.8 26.7 - 34.0 pg 05/05/2021 12:31 PM [facility] MCHC 31.1 30.8 - 35.9 gm/dL 05/05/2021 12:31 PM [facility] Platelet Count 398 153 - 416 x10E9/L 05/05/2021 12:31 PM [facility] RDW-CV 13.2 12.1 - 14.9 % 05/05/2021 12:31 PM [facility] MPV 10.4 9.4 - 12.9 fl 05/05/2021 12:31 PM [facility] Neutrophils % 67.5 44.0 - 73.0 % 05/05/2021 12:31 PM [facility] Lymphocytes % 16.4(L) 20.0 - 43.0 % 05/05/2021 12:31 PM [facility] Monocytes % 10.1 5.0 - 13.0 % 05/05/2021 12:31 PM [facility] Eosinophils % 5.3 0.0 - 6.0 % 05/05/2021 12:31 PM [facility] Basophils % 0.5 0.0 - 2.0 % 05/05/2021 12:31 PM [facility] Immature Granulocytes 0.2 0 - 1 % 05/05/2021 12:31 PM [facility] Neutrophil Absolute 4.36 2.01 - 7.14 x10E9/L 05/05/2021 12:31 PM [facility] Lymphocytes Absolute 1.06(L) 1.07 - 3.94 x10E9/L 05/05/2021 12:31 PM [facility] Monocytes Absolute 0.65 0.26 - 1.07 x10E9/L 05/05/2021 12:31 PM [facility] Eosinophils Absolute 0.34 0 - 0.47 x10E9/L 05/05/2021 12:31 PM [facility] Basophils Absolute 0.03 0 - 0.08 x10E9/L 05/05/2021 12:31 PM [facility] Immature Granulocytes Absolute 0.01 0.00 - 0.06 x10E9/L 05/05/2021 12:31 PM [facility] nRBC Auto 0 /100 WBC 05/05/2021 12:31 PM [facility] Blood BLOOD SPECIMEN / Unknown Venipuncture / Unknown 05/05/2021 5:32 AM [facility] 05/05/2021 12:02 PM [facility] Lamberto De La Cruz MD LAB - HEMATOLOGY ORD ERABLES [facility] [address] [place] [address] documented in this encounter Visit Diagnoses Not on filedocumented in this encounter Care Teams Buckle Assembler Relationship Specialty Start Date End Date Pepe Martel MD [facility] [address] [address] PCP - General 08/14/16 documented as of this encounter
--- OUTSIDE RECORDS SUMMARY | 2024-08-23 06:06 | XMS_ITS | Encounter Summary ---
Author Organization [facility] Health Address [address] [place] [address] Care Team Providers Care Closing Manager Name Role Phone Pepe aMrtel MD Primary Care Provider [phone] Encounter Details Date Type Department Care Team (Late st Contact Info) Description 06/09/2021 Lab Requisition [facility] [address] [place] [address] Social History Tobacco Use Types Packs/Day Years [...] W AUTO DIFFERENTIAL STAT 06/09/2021 4:00 AM VICE PRESIDENT DIGITAL STRATEGIST COMPREHENSIVE METABOLIC PANEL STAT 06/09/2021 4:00 AM VICE PRESIDENT DIGITAL STRATEGIST documented in this encounter Results * (ABNORMAL) CBC WITH DIFFERENTIAL (06/09/2021 4:00 AM VICE PRESIDENT DIGITAL STRATEGIST) WBC 12.1(H) 4.4 - 10.7 x10E9/L 06/09/2021 9:55 AM VICE PRESIDENT DIGITAL STRATEGIST [facility] WBC Corrected 06/09/2021 9:55 AM VICE PRESIDENT DIGITAL STRATEGIST [facility] RBC 4.28 3.80 - 5.40 x10E12/L 06/09/2021 9:55 AM [facility] Hemoglobin 11.5(L) 12.0 - 17.6 gm/dL 06/09/2021 9:55 AM VICE PRESIDENT DIGITAL STRATEGIST [facility] Hematocrit 36.9 35.2 - 51.7 % 06/09/2021 9:55 AM VICE PRESIDENT DIGITAL STRATEGIST [facility] MCV 86.2 80.7 - 98.3 fl 06/09/2021 9:55 AM VICE PRESIDENT DIGITAL STRATEGIST [facility] MCH 26.9 26.7 - 34.0 pg 06/09/2021 9:55 AM VICE PRESIDENT DIGITAL STRATEGIST [facility] MCHC 31.2 30.8 - 35.9 gm/dL 06/09/2021 9:55 AM VICE PRESIDENT DIGITAL STRATEGIST [facility] Platelet Count 533(H) 153 - 416 x10E9/L 06/09/2021 9:55 AM [facility] RDW-CV 12.3 12.1 - 14.9 % 06/09/2021 9:55 AM VICE PRESIDENT DIGITAL STRATEGIST [facility] MPV 9.2(L) 9.4 - 12.9 fl 06/09/2021 9:55 AM VICE PRESIDENT DIGITAL STRATEGIST [facility] Neutrophils % 69.1 44.0 - 73.0 % 06/09/2021 9:55 AM VICE PRESIDENT DIGITAL STRATEGIST [facility] Lymphocytes % 14.6(L) 20.0 - 43.0 % 06/09/2021 9:55 AM VICE PRESIDENT DIGITAL STRATEGIST [facility] Monocytes % 12.6 5.0 - 13.0 % 06/09/2021 9:55 AM VICE PRESIDENT DIGITAL STRATEGIST [facility] Eosinophils % 2.9 0.0 - 6.0 % 06/09/2021 9:55 AM [facility] Basophils % 0.3 0.0 - 2.0 % 06/09/2021 9:55 AM [facility] Immature Granulocytes 0.5 0 - 1 % 06/09/2021 9:55 AM [facility] Neutrophil Absolute 8.36(H) 2.01 - 7.14 x10E9/L 06/09/2021 9:55 AM [facility] Lymphocytes Absolute 1.77 1.07 - 3.94 x10E9/L 06/09/2021 9:55 AM [facility] Monocytes Absolute 1.53(H) 0.26 - 1.07 x10E9/L 06/09/2021 9:55 AM [facility] Eosinophils Absolute 0.35 0 - 0.47 x10E9/L 06/09/2021 9:55 AM [facility] Basophils Absolute 0.04 0 - 0.08 x10E9/L 06/09/2021 9:55 AM [facility] Immature Granulocytes Absolute 0.06 0.00 - 0.06 x10E9/L 06/09/2021 9:55 AM [facility] nRBC Auto 0 /100 WBC 06/09/2021 9:55 AM [facility] Blood BLOOD SPECIMEN / Unknown Venipuncture / Unknown 06/09/2021 4:00 AM VICE PRESIDENT DIGITAL STRATEGIST 06/09/2021 9:50 AM [facility] - HEMATOLOGY ORD ERABLES Performing Organization Address City/State/[facility] Co de Phone Number [facility] [address] [place] [address] * (ABNORMAL) COMPREHENSIVE METABOLIC PANEL (06/09/2021 4:00 AM [facility]) [facility] Glucose 119(H) 70 - 105 mg/dL 06/09/2021 10:51 AM [facility] Sodium 138 136 - 145 mmol/L 06/09/2021 10:51 AM [facility] Potassium 5.2(H) 3.5 - 5.1 mmol/L 06/09/2021 10:51 AM [facility] Chloride 99 98 - 107 mmol/L 06/09/2021 10:51 AM [facility] CO2 25 23 - 31 mmol/L 06/09/2021 10:51 AM [facility] Calcium 10.1 8.4 - 10.4 mg/dL 06/09/2021 10:51 AM [facility] Anion Gap 14 8 - 18 mmol/L 06/09/2021 10:51 AM [facility] BUN 32(H) 8.9 - 20.6 mg/dL 06/09/2021 10:51 AM [facility] Creatinine 0.96 0.72 - 1.25 mg/dL 06/09/2021 10:51 AM [facility] Alkaline Phosphatase 175(H) 40 - 150 U/L 06/09/2021 10:51 AM [facility] ALT 38 0 - 61 U/L 06/09/2021 10:51 AM [facility] AST 21 5 - 34 U/L 06/09/2021 10:51 AM [facility] Protein Total 8.6(H) 6.4 - 8.3 gm/dL 06/09/2021 10:51 AM [facility] Albumin 3.9 3.5 - 5.2 gm/dL 06/09/2021 10:51 AM [facility] Bilirubin Total 0.2 0.2 - 1.2 mg/dL 06/09/2021 10:51 AM [facility] eGFR by MDRD >60 >60 mL/min/1.7 3m2 06/09/2021 10:51 AM [facility] eGFR by MDRD >60 >60 mL/min/1.7 3m2 06/09/2021 10:51 AM [facility] Blood BLOOD SPECIMEN / Unknown Venipuncture / Unknown 06/09/2021 4:00 AM VICE PRESIDENT DIGITAL STRATEGIST 06/09/2021 9:50 AM VICE PRESIDENT DIGITAL STRATEGIST LAB - CHEMISTRY JOSE ENRIQUE [facility] Organization Address City/State/ZIP Co de Phone Number [facility] [address] [place] [address] documented in this encounter Visit Diagnoses Not on filedocumented in this encounter Care Teams Closing Manager Relationship Specialty Start Date End Date Pepe Martel MD [address] [place] [id number] PCP - General 08/14/16 documented as of this encounter
--- OUTSIDE RECORDS SUMMARY | 2024-08-23 06:06 | XMS_ITS | Encounter Summary ---
Author Organization [facility] Address [address] [place] [address] Care Team Providers Care Button Maker And Installer Name Role Phone Pepe Martel MD Primary Care Provider [phone] Encounter Details Date Type Department Care Team (Late st Contact Info) Description 04/30/2021 Lab Requisition [facility] [address] [place] [address] [place] [address] [place] [address] Social History Tobacco Use Types Packs/Day Years [...] MICROSCOPIC NO CULTURE STAT 04/30/2021 2:30 AM VP CUSTOMER SERVICE URINE MICROSCOPIC ONLY STAT 2:30 AM VP CUSTOMER SERVICE SLIDE SCAN HEMATOLOGY Routine 04/30/2021 2:30 AM VP CUSTOMER SERVICE CBC W AUTO DIFFERENTIAL STAT 04/30/2021 2:30 AM VP CUSTOMER SERVICE COMPREHENSIVE METABOLIC PANEL STAT 04/30/2021 2:30 AM VP CUSTOMER SERVICE documented in this encounter Results * (ABNORMAL) SLIDE SCAN HEMATOLOGY (04/30/2021 2:30 AM VP CUSTOMER SERVICE) WBC Morph Normal 04/30/2021 10:11 AM VP CUSTOMER SERVICE [facility] RBC Morphology Normal 04/30/2021 10:11 AM VP CUSTOMER SERVICE [facility] Platelet Estimation Normal Normal, Adequate platelets 04/30/2021 10:11 AM VP CUSTOMER SERVICE [facility] Clumped Platelets 1+(A) None 04/30/2021 10:11 AM VP CUSTOMER SERVICE [facility] Blood BLOOD SPECIMEN / Unknown Venipuncture / Unknown 04/30/2021 2:30 AM VP CUSTOMER SERVICE 04/30/2021 8:33 AM VP CUSTOMER SERVICE Vinicio Quintanilla MD LAB - HEMATOLOGY ORD ERABLES [facility] [address] [place] [address] * (ABNORMAL) URINE MICROSCOPIC ONLY (04/30/2021 2:30 AM VP CUSTOMER SERVICE) RBC UA 51-100(A) None Seen, 0-2, 3-5 # /hpf 04/30/2021 9:49 AM VP CUSTOMER SERVICE [facility] WBC UA 11-20(A) None Seen, 0-5 # /hpf 04/30/2021 9:49 AM [facility] Bacteria UA Trace(A) None Seen 04/30/2021 9:49 AM [facility] Squamous Epithelial Cells 0-2 None Seen, 0-2, 3-5 /hpf 04/30/2021 9:49 AM [facility] Mucus UA 1+ /LPF 04/30/2021 9:49 AM [facility] Urine URINE SPECIMEN OBTAINED BY CLEAN CATCH PROCEDURE / Unknown Collection / Unknown 04/30/2021 2:30 AM VP CUSTOMER SERVICE 04/30/2021 8:33 AM VP CUSTOMER SERVICE [facility] - 04/30/2021 9:49 AM VP CUSTOMER SERVICE Vinicio Quintanilla MD LAB - URINALYSIS ORD ERABLES [facility] [address] [place], [place] [id number] * (ABNORMAL) COMPREHENSIVE METABOLIC PANEL (04/30/2021 2:30 AM VP CUSTOMER SERVICE) Glucose 102 70 - 105 mg/dL 04/30/2021 9:58 AM [facility] Sodium 140 136 - 145 mmol/L 04/30/2021 9:58 AM [facility] Potassium 4.9 3.5 - 5.1 mmol/L 04/30/2021 9:58 AM [facility] Chloride 105 98 - 107 mmol/L 04/30/2021 9:58 AM [facility] CO2 22(L) 23 - 31 mmol/L 04/30/2021 9:58 AM [facility] Calcium 9.7 8.4 - 10.4 mg/dL 04/30/2021 9:58 AM [facility] Anion Gap 13 8 - 18 mmol/L 04/30/2021 9:58 AM [facility] BUN 32(H) 8.9 - 20.6 mg/dL 04/30/2021 9:58 AM [facility] Creatinine 0.91 0.72 - 1.25 mg/dL 04/30/2021 9:58 AM [facility] Alkaline Phosphatase 76 40 - 150 U/L 04/30/2021 9:58 AM [facility] ALT 19 0 - 61 U/L 04/30/2021 9:58 AM VP CUSTOMER SERVICE [facility] AST 18 5 - 34 U/L 04/30/2021 9:58 AM VP CUSTOMER SERVICE [facility] Protein Total 7.4 6.4 - 8.3 gm/dL 04/30/2021 9:58 AM VP CUSTOMER SERVICE [facility] Albumin 3.6 3.5 - 5.2 gm/dL 04/30/2021 9:58 AM VP CUSTOMER SERVICE [facility] Bilirubin Total 0.3 0.2 - 1.2 mg/dL 04/30/2021 9:58 AM VP CUSTOMER SERVICE [facility] eGFR by MDRD >60 >60 mL/min/1.7 3m2 04/30/2021 9:58 AM VP CUSTOMER SERVICE [facility] eGFR by MDRD >60 >60 mL/min/1.7 3m2 04/30/2021 9:58 AM [facility] Blood BLOOD SPECIMEN / Unknown Venipuncture / Unknown 04/30/2021 2:30 AM VP CUSTOMER SERVICE 04/30/2021 8:33 AM VP CUSTOMER SERVICE Vinicio Quintanilla MD LAB - CHEMISTRY ORDE [facility] Organization Address City/State/ZIP Co de Phone Number [facility] [address] [place] [address] * (ABNORMAL) CBC WITH DIFFERENTIAL (04/30/2021 2:30 AM VP CUSTOMER SERVICE) WBC 8.2 4.4 - 10.7 x10E9/L 04/30/2021 9:55 AM VP CUSTOMER SERVICE [facility] WBC Corrected 04/30/2021 9:55 AM VP CUSTOMER SERVICE [facility] RBC 3.82 3.80 - 5.40 x10E12/L 04/30/2021 9:55 AM VP CUSTOMER SERVICE [facility] Hemoglobin 10.8(L) 12.0 - 17.6 gm/dL 04/30/2021 9:55 AM VP CUSTOMER SERVICE [facility] Hematocrit 34.5(L) 35.2 - 51.7 % 04/30/2021 9:55 AM VP CUSTOMER SERVICE [facility] MCV 90.3 80.7 - 98.3 fl 04/30/2021 9:55 AM VP CUSTOMER SERVICE [facility] MCH 28.3 26.7 - 34.0 pg 04/30/2021 9:55 AM [facility] MCHC 31.3 30.8 - 35.9 gm/dL 04/30/2021 9:55 AM [facility] Platelet Count 376 153 - 416 x10E9/L 04/30/2021 9:55 AM [facility] RDW-CV 13.8 12.1 - 14.9 % 04/30/2021 9:55 AM [facility] MPV 10.7 9.4 - 12.9 fl 04/30/2021 9:55 AM [facility] Neutrophils % 67.9 44.0 - 73.0 % 04/30/2021 9:55 AM [facility] Lymphocytes % 14.8(L) 20.0 - 43.0 % 04/30/2021 9:55 AM [facility] Monocytes % 11.2 5.0 - 13.0 % 04/30/2021 9:55 AM [facility] Eosinophils % 5.0 0.0 - 6.0 % 04/30/2021 9:55 AM [facility] Basophils % 0.7 0.0 - 2.0 % 04/30/2021 9:55 AM [facility] Immature Granulocytes 0.4 0 - 1 % 04/30/2021 9:55 AM [facility] Neutrophil Absolute 5.53 2.01 - 7.14 x10E9/L 04/30/2021 9:55 AM [facility] Lymphocytes Absolute 1.21 1.07 - 3.94 x10E9/L 04/30/2021 9:55 AM [facility] Monocytes Absolute 0.91 0.26 - 1.07 x10E9/L 04/30/2021 9:55 AM [facility] Eosinophils Absolute 0.41 0 - 0.47 x10E9/L 04/30/2021 9:55 AM [facility] Basophils Absolute 0.06 0 - 0.08 x10E9/L 04/30/2021 9:55 AM [facility] Immature Granulocytes Absolute 0.03 0.00 - 0.06 x10E9/L 04/30/2021 9:55 AM [facility] nRBC Auto 0 /100 WBC 04/30/2021 9:55 AM [facility] Blood BLOOD SPECIMEN / Unknown Venipuncture / Unknown 04/30/2021 2:30 AM VP CUSTOMER SERVICE 04/30/2021 8:33 AM VP CUSTOMER SERVICE Vinicio Quintanilla MD LAB - HEMATOLOGY ORD ERABLES [facility] [address] [place] [address] * (ABNORMAL) URINALYSIS REFLEX TO MICROSCOPIC NO CULTURE (04/30/2021 2:30 AM VP CUSTOMER SERVICE) Color UA Yellow Straw, Yellow 04/30/2021 9:55 AM VP CUSTOMER SERVICE [facility] Clarity UA Slt Cloudy(A) Clear 04/30/2021 9:55 AM [facility] Glucose UA Negative Negative 04/30/2021 9:55 AM VP CUSTOMER SERVICE [facility] Bilirubin UA Negative Negative 04/30/2021 9:55 AM VP CUSTOMER SERVICE [facility] Ketone UA Negative Negative 04/30/2021 9:55 AM [facility] Specific [place] UA 1.024 1.005 - 1.030 04/30/2021 9:55 AM [facility] Blood UA 2+(A) Negative 04/30/2021 9:55 AM [facility] pH UA 6.0 5.0 - 8.0 pH 04/30/2021 9:55 AM [facility] Protein UA 2+(A) Negative 04/30/2021 9:55 AM [facility] Urobilinogen UA Negative Negative mg/dL 04/30/2021 9:55 AM [facility] Nitrite UA Negative Negative 04/30/2021 9:55 AM [facility] Leukocyte UA Trace(A) Negative 04/30/2021 9:55 AM [facility] Urine Microscopy Urine microscopy to follow 04/30/2021 9:55 AM [facility] Urine URINE SPECIMEN OBTAINED BY CLEAN CATCH PROCEDURE / Unknown Collection / Unknown 04/30/2021 2:30 AM VP CUSTOMER SERVICE 04/30/2021 8:33 AM VP CUSTOMER SERVICE Narrative [facility] - 04/30/2021 9:55 AM VP CUSTOMER SERVICE Ascorbic Acid can cause false negative urine strip tests for blood, glucose, nitrite, and bilirubin. Vinicio Quintanilla MD LAB - URINALYSIS ORD ERABLES [facility] [address] [place] [address] documented in this encounter Visit Diagnoses Not on filedocumented in this encounter Care Teams Button Maker And Installer Relationship Specialty Start Date End Date Pepe Martel MD [address] [facility] [address] [place] [address] PCP - General 08/14/16 documented as of this encounter
--- OUTSIDE RECORDS SUMMARY | 2024-08-23 06:06 | XMS_ITS | Encounter Summary ---
Author Organization [facility] Address [address] [place] [address] Care Team Providers Care Fish Checker Name Role Phone Pepe Martel MD Primary Care Provider [phone] Encounter Details Date Type Department Care Team (Late st Contact Info) Description 05/19/2021 Lab Requisition [facility] [address] [place] [address] Lamberto De La Cruz MD [address] [facility] [address] [place] [address] Social History Tobacco Use Types [...] W AUTO DIFFERENTIAL STAT 05/19/2021 3:30 AM ACCOUNT ASSOCIATE COMPREHENSIVE METABOLIC PANEL STAT 05/19/2021 3:30 AM ACCOUNT ASSOCIATE VANCOMYCIN LEVEL TROUGH STAT 05/19/2021 3:30 AM ACCOUNT ASSOCIATE documented in this encounter Results * VANCOMYCIN LEVEL TROUGH (05/19/2021 3:30 AM ACCOUNT ASSOCIATE) Pathologist [facility] Vancomycin Trough 18.1 10.0 - 20.0 ug/mL 05/19/2021 12:14 PM ACCOUNT ASSOCIATE [facility] Blood BLOOD SPECIMEN / Unknown Venipuncture / Unknown 05/19/2021 3:30 AM ACCOUNT ASSOCIATE 05/19/2021 11:41 AM ACCOUNT ASSOCIATE Lamberto De La Cruz MD LAB [facility] Organization Address City/State/[facility] Co de Phone Number [facility] [address] [place] [address] * (ABNORMAL) CBC WITH DIFFERENTIAL (05/19/2021 3:30 AM ACCOUNT ASSOCIATE) Pathologist [facility] WBC 7.8 4.4 - 10.7 x10E9/L 05/19/2021 10:13 AM ACCOUNT ASSOCIATE [facility] WBC Corrected 05/19/2021 10:13 AM ACCOUNT ASSOCIATE [facility] RBC 3.99 3.80 - 5.40 x10E12/L 05/19/2021 10:13 AM ACCOUNT ASSOCIATE [facility] Hemoglobin 11.0(L) 12.0 - 17.6 gm/dL 05/19/2021 10:13 AM ACCOUNT ASSOCIATE [facility] Hematocrit 35.2 35.2 - 51.7 % 05/19/2021 10:13 AM ACCOUNT ASSOCIATE [facility] MCV 88.2 80.7 - 98.3 fl 05/19/2021 10:13 AM ACCOUNT ASSOCIATE [facility] MCH 27.6 26.7 - 34.0 pg 05/19/2021 10:[address] [facility] MCHC 31.3 30.8 - 35.9 gm/dL 05/19/2021 10:[address] [facility] Platelet Count 363 153 - 416 x10E9/L 05/19/2021 10:[address] [facility] RDW-CV 12.1 12.1 - 14.9 % 05/19/2021 10:[address] [facility] MPV 10.4 9.4 - 12.9 fl 05/19/2021 10:[address] [facility] Neutrophils % 67.6 44.0 - 73.0 % 05/19/2021 10:[address] [facility] Lymphocytes % 16.6(L) 20.0 - 43.0 % 05/19/2021 10:[address] [facility] Monocytes % 9.8 5.0 - 13.0 % 05/19/2021 10:[address] [facility] Eosinophils % 5.3 0.0 - 6.0 % 05/19/2021 10:[address] [facility] Basophils % 0.4 0.0 - 2.0 % 05/19/2021 10:[address] [facility] Immature Granulocytes 0.3 0 - 1 % 05/19/2021 10:[address] [facility] Neutrophil Absolute 5.25 2.01 - 7.14 x10E9/L 05/19/2021 10:[address] [facility] Lymphocytes Absolute 1.29 1.07 - 3.94 x10E9/L 05/19/2021 10:[address] [facility] Monocytes Absolute 0.76 0.26 - 1.07 x10E9/L 05/19/2021 10:[address] [facility] Eosinophils Absolute 0.41 0 - 0.47 x10E9/L 05/19/2021 10:[address] [facility] Basophils Absolute 0.03 0 - 0.08 x10E9/L 05/19/2021 10:[address] [facility] Immature Granulocytes Absolute 0.02 0.00 - 0.06 x10E9/L 05/19/2021 10:[address] [facility] nRBC Auto 0 /100 WBC 05/19/2021 10:[address] [facility] Blood BLOOD SPECIMEN / Unknown Venipuncture / Unknown 05/19/2021 3:30 AM ACCOUNT ASSOCIATE 05/19/2021 9:41 AM [facility] Lamberto De La Cruz MD LAB - HEMATOLOGY ORD ERABLES [facility] [address] [place] [address] * (ABNORMAL) COMPREHENSIVE METABOLIC PANEL (05/19/2021 3:30 AM [facility]) Glucose 110(H) 70 - 105 mg/dL 05/19/2021 10:[address] [facility] Sodium 139 136 - 145 mmol/L 05/19/2021 10:[address] [facility] Potassium 4.7 3.5 - 5.1 mmol/L 05/19/2021 10:[address] [facility] Chloride 105 98 - 107 mmol/L 05/19/2021 10:[address] [facility] CO2 24 23 - 31 mmol/L 05/19/2021 10:[address] [facility] Calcium 9.3 8.4 - 10.4 mg/dL 05/19/2021 10:[address] [facility] Anion Gap 10 8 - 18 mmol/L 05/19/2021 10:[address] [facility] BUN 30(H) 8.9 - 20.6 mg/dL 05/19/2021 10:[address] [facility] Creatinine 0.90 0.72 - 1.25 mg/dL 05/19/2021 10:[address] [facility] Alkaline Phosphatase 93 40 - 150 U/L 05/19/2021 10:[address] [facility] ALT 29 0 - 61 U/L 05/19/2021 10:[address] [facility] AST 19 5 - 34 U/L 05/19/2021 10:[address] [facility] Protein Total 7.3 6.4 - 8.3 gm/dL 05/19/2021 10:[address] [facility] Albumin 3.7 3.5 - 5.2 gm/dL 05/19/2021 10:[address] [facility] Bilirubin Total 0.3 0.2 - 1.2 mg/dL 05/19/2021 10:27 AM ACCOUNT ASSOCIATE [facility] eGFR by MDRD >60 >60 mL/min/1.7 3m2 05/19/2021 10:27 AM ACCOUNT ASSOCIATE [facility] eGFR by MDRD >60 >60 mL/min/1.7 3m2 05/19/2021 10:27 AM ACCOUNT ASSOCIATE [facility] Blood BLOOD SPECIMEN / Unknown Venipuncture / Unknown 05/19/2021 3:30 AM ACCOUNT ASSOCIATE 05/19/2021 9:41 AM ACCOUNT ASSOCIATE Lamberto De La Cruz MD LAB - CHEMISTRY JOSE ENRIQUE VELA [facility] Organization Address City/State/[facility] Co de Phone Number [facility] [address] [place] [address] documented in this encounter Visit Diagnoses Not on filedocumented in this encounter Care Teams Fish Checker Relationship Specialty Start Date End Date Pepe Martel MD [address] [facility] [address] [place] [address] PCP - General 08/14/16 documented as of this encounter
--- OUTSIDE RECORDS SUMMARY | 2024-08-23 06:07 | XMS_ITS | Encounter Summary ---
Author Organization [facility] Address [address] [facility] [place] [address] Care Team Providers Care Athletic Trainer Name Role Phone Pepe Martel MD Primary Care Provider [phone] Encounter Details Date Type Department Care Team (Late st Contact Info) Description 05/16/2021 Lab Requisition [facility] [address] [place] [address] Davon Laws MD [address] [place] [address] Social History Tobacco Use Types [...] REFLEX TO CULTURE Routine 05/16/2021 5:30 AM LINE SERVER URINALYSIS REFLEX MICROSCOPIC REFLEX CULTURE STAT 05/16/2021 5:30 AM LINE SERVER CULTURE URINE Routine 05/16/2021 5:30 AM LINE SERVER CBC W AUTO DIFFERENTIAL STAT 05/16/2021 5:30 AM LINE SERVER documented in this encounter Results * CULTURE URINE (05/16/2021 5:30 AM LINE SERVER) Culture Urine No growth (<100 CFU/mL) [place] 05/17/2021 2:15 PM LINE SERVER [facility] MICROBIOLOGY Urine URINE SPECIMEN OBTAINED BY CLEAN CATCH PROCEDURE / Unknown Collection / Unknown 05/16/2021 5:30 AM LINE SERVER 05/16/2021 8:37 AM LINE SERVER Davon Laws MD LAB - MICROBIOLOGY O RDERABLES [facility] MICROBIOLOGY [address] [place], [place] [address], [facility] [phone] * (ABNORMAL) URINE MICROSCOPIC ONLY REFLEX TO CULTURE (05/16/2021 5:30 AM LINE SERVER) Reflex Status Culture to follow 05/16/2021 8:53 AM LINE SERVER [facility] RBC UA 6-10(A) None Seen, 0-2, 3-5 # /hpf 05/16/2021 8:53 AM LINE SERVER [facility] WBC UA 6-10(A) None Seen, 0-5 # /hpf 05/16/2021 8:53 AM LINE SERVER [facility] Bacteria UA None Seen None Seen 05/16/2021 8:53 AM LINE SERVER [facility] Squamous Epithelial Cells 3-5 None Seen, 0-2, 3-5 /hpf 05/16/2021 8:53 AM LINE SERVER [facility] Calcium Oxalate Crystals Occasional( A) None seen /HPF 05/16/2021 8:53 AM [facility] Urine URINE SPECIMEN OBTAINED BY CLEAN CATCH PROCEDURE / Unknown Collection / Unknown 05/16/2021 5:30 AM LINE SERVER 05/16/2021 8:37 AM [facility] - 05/16/2021 8:53 AM LINE SERVER Davon Laws MD LAB - URINALYSIS ORD ERABLES [facility] [address] [place] [address] * (ABNORMAL) CBC WITH DIFFERENTIAL (05/16/2021 5:30 AM LINE SERVER) WBC 7.2 4.4 - 10.7 x10E9/L 05/16/2021 8:44 AM [facility] WBC Corrected 05/16/2021 8:44 AM [facility] RBC 4.09 3.80 - 5.40 x10E12/L 05/16/2021 8:44 AM [facility] Hemoglobin 11.2(L) 12.0 - 17.6 gm/dL 05/16/2021 8:44 AM [facility] Hematocrit 35.9 35.2 - 51.7 % 05/16/2021 8:44 AM [facility] MCV 87.8 80.7 - 98.3 fl 05/16/2021 8:44 AM [facility] MCH 27.4 26.7 - 34.0 pg 05/16/2021 8:44 AM [facility] MCHC 31.2 30.8 - 35.9 gm/dL 05/16/2021 8:44 AM [facility] Platelet Count 384 153 - 416 x10E9/L 05/16/2021 8:44 AM [facility] RDW-CV 12.3 12.1 - 14.9 % 05/16/2021 8:44 AM [facility] MPV 10.0 9.4 - 12.9 fl 05/16/2021 8:44 AM [facility] Neutrophils % 67.2 44.0 - 73.0 % 05/16/2021 8:44 AM [facility] Lymphocytes % 17.2(L) 20.0 - 43.0 % 05/16/2021 8:44 AM [facility] Monocytes % 11.2 5.0 - 13.0 % 05/16/2021 8:44 AM [facility] Eosinophils % 4.0 0.0 - 6.0 % 05/16/2021 8:44 AM [facility] Basophils % 0.3 0.0 - 2.0 % 05/16/2021 8:44 AM [facility] Immature Granulocytes 0.1 0 - 1 % 05/16/2021 8:44 AM [facility] Neutrophil Absolute 4.84 2.01 - 7.14 x10E9/L 05/16/2021 8:44 AM [facility] Lymphocytes Absolute 1.24 1.07 - 3.94 x10E9/L 05/16/2021 8:44 AM [facility] Monocytes Absolute 0.81 0.26 - 1.07 x10E9/L 05/16/2021 8:44 AM [facility] Eosinophils Absolute 0.29 0 - 0.47 x10E9/L 05/16/2021 8:44 AM [facility] Basophils Absolute 0.02 0 - 0.08 x10E9/L 05/16/2021 8:44 AM [facility] Immature Granulocytes Absolute 0.01 0.00 - 0.06 x10E9/L 05/16/2021 8:44 AM [facility] nRBC Auto 0 /100 WBC 05/16/2021 8:44 AM [facility] Blood BLOOD SPECIMEN / Unknown Venipuncture / Unknown 05/16/2021 5:30 AM LINE SERVER 05/16/2021 8:37 AM [facility] Davon Laws MD LAB - HEMATOLOGY ORD ERABLES [facility] [address] [place] [address] * (ABNORMAL) URINALYSIS REFLEX MICROSCOPIC REFLEX CULTURE (05/16/2021 5:30 AM LINE SERVER) Color UA Yellow Straw, Yellow 05/16/2021 8:51 AM LINE SERVER [facility] Clarity UA Slt Cloudy(A) Clear 05/16/2021 8:51 AM LINE SERVER [facility] Glucose UA Negative Negative 05/16/2021 8:51 AM LINE SERVER [facility] Bilirubin UA Negative Negative 05/16/2021 8:51 AM LINE SERVER [facility] Ketone UA Negative Negative 05/16/2021 8:51 AM LINE SERVER [facility] Specific [place] UA 1.024 1.005 - 1.030 05/16/2021 8:51 AM LINE SERVER [facility] Blood UA Negative Negative 05/16/2021 8:51 AM LINE SERVER [facility] pH UA 6.0 5.0 - 8.0 pH 05/16/2021 8:51 AM LINE SERVER [facility] Protein UA Negative Negative 05/16/2021 8:51 AM LINE SERVER [facility] Urobilinogen UA Negative Negative mg/dL 05/16/2021 8:51 AM LINE SERVER [facility] Nitrite UA Negative Negative 05/16/2021 8:51 AM LINE SERVER [facility] Leukocyte UA Trace(A) Negative 05/16/2021 8:51 AM LINE SERVER [facility] Urine Microscopy Urine microscopy to follow 05/16/2021 8:51 AM LINE SERVER [facility] Reflex Status Culture to follow 05/16/2021 8:51 AM LINE SERVER [facility] Urine URINE SPECIMEN OBTAINED BY CLEAN CATCH PROCEDURE / Unknown Collection / Unknown 05/16/2021 5:30 AM LINE SERVER 05/16/2021 8:37 AM LINE SERVER Narrative [facility] - 05/16/2021 8:51 AM LINE SERVER Ascorbic Acid can cause false negative urine strip tests for blood, glucose, nitrite, and bilirubin. Davon Laws MD LAB - URINALYSIS ORD ERABLES [facility] [address] [place] [address] documented in this encounter Visit Diagnoses Not on filedocumented in this encounter Care Teams Athletic Trainer Relationship Specialty Start Date End Date Pepe Martel MD [address] [place] [address] PCP - General 08/14/16 documented as of this encounter
--- OUTSIDE RECORDS SUMMARY | 2024-08-23 06:07 | XMS_ITS | Encounter Summary ---
Author Organization [facility] Address [address] [place] [address] Care Team Providers Care Journalist Name Role Phone Pepe Martel MD Primary Care Provider [phone] Encounter Details Date Type Department Care Team (Late st Contact Info) Description 2021 Lab Requisition [facility] [address] [place] [address] Alverto Virgen MD [address] [place] [address] [place] [address] Social History Tobacco Use Types Packs/Day Years [...] - 145 mmol/L 2021 10:29 AM CDT [facility] Potassium 4.8 3.5 - 5.1 mmol/L 2021 10:29 AM CDT [facility] Chloride 104 98 - 107 mmol/L 2021 10:29 AM CDT [facility] CO2 22(L) 23 - 31 mmol/L 2021 10:29 AM CDT [facility] Calcium 9.6 8.4 - 10.4 mg/dL 2021 10:29 AM CDT [facility] Anion Gap 15 8 - 18 mmol/L 2021 10:29 AM CDT [facility] BUN 28(H) 8.9 - 20.6 mg/dL 2021 10:29 AM CDT [facility] Creatinine 1.02 0.72 - 1.25 mg/dL 2021 10:29 AM CDT [facility] Alkaline Phosphatase 134 40 - 150 U/L 2021 10:29 AM CDT [facility] ALT 17 0 - 61 U/L 2021 10:29 AM CDT [facility] AST 12 5 - 34 U/L 2021 10:29 AM CDT [facility] Protein Total 7.7 6.4 - 8.3 gm/dL 2021 10:29 AM CDT [facility] Albumin 3.7 3.5 - 5.2 gm/dL 2021 10:29 AM CDT [facility] Bilirubin Total 0.3 0.2 - 1.2 mg/dL 2021 10:29 AM CDT [facility] eGFR by CKD-EPI >90 >=90 mL/min/1.7 3 m2 2021 10:29 AM CDT [facility] Blood BLOOD SPECIMEN / Unknown Venipuncture / Unknown 2021 4:04 AM CDT 2021 8:49 AM CDT Alverto Virgen MD LAB - CHEMISTRY O RDERABLES [facility] [address] [place], [place] [id number] documented in this encounter Visit Diagnoses Not on filedocumented in this encounter Care Teams Journalist Relationship Specialty Start Date End Date Pepe Martel MD [address] [place] [address] [address] [place] [address] PCP - General 08/14/16 documented as of this encounter
--- OUTSIDE RECORDS SUMMARY | 2024-08-23 06:07 | XMS_ITS | Encounter Summary ---
Author Organization [facility] Address [address] [place] [address] Care Team Providers Care [employer] Biology Teacher Name Role Phone Pepe Martel MD Primary Care Provider [phone] Encounter Details Date Type Department Care Team (Late st Contact Info) Description 07/24/2021 Lab Requisition [facility] [address] [place] [address] [place] [address] [place] [address] Social History Tobacco Use Types Packs/Day Years [...] W AUTO DIFFERENTIAL STAT 07/24/2021 3:45 AM MACHINE CLERICAL VERIFIER COMPREHENSIVE METABOLIC PANEL STAT 07/24/2021 3:45 AM MACHINE CLERICAL VERIFIER documented in this encounter Results * (ABNORMAL) CBC WITH DIFFERENTIAL (07/24/2021 3:45 AM MACHINE CLERICAL VERIFIER) WBC 9.2 4.4 - 10.7 x10E9/L 07/24/2021 10:02 AM MACHINE CLERICAL VERIFIER [facility] WBC Corrected 07/24/2021 10:02 AM MACHINE CLERICAL VERIFIER [facility] RBC 4.42 3.80 - 5.40 x10E12/L 07/24/2021 10:02 AM MACHINE CLERICAL VERIFIER [facility] Hemoglobin 11.4(L) 12.0 - 17.6 gm/dL 07/24/2021 10:02 AM MACHINE CLERICAL VERIFIER [facility] Hematocrit 37.1 35.2 - 51.7 % 07/24/2021 10:02 AM [facility] MCV 83.9 80.7 - 98.3 fl 07/24/2021 10:02 AM MACHINE CLERICAL VERIFIER [facility] MCH 25.8(L) 26.7 - 34.0 pg 07/24/2021 10:02 AM MACHINE CLERICAL VERIFIER [facility] MCHC 30.7(L) 30.8 - 35.9 gm/dL 07/24/2021 10:02 AM MACHINE CLERICAL VERIFIER [facility] Platelet Count 474(H) 153 - 416 x10E9/L 07/24/2021 10:02 AM MACHINE CLERICAL VERIFIER [facility] RDW-CV 14.0 12.1 - 14.9 % 07/24/2021 10:02 AM MACHINE CLERICAL VERIFIER [facility] MPV 9.8 9.4 - 12.9 fl 07/24/2021 10:02 AM MACHINE CLERICAL VERIFIER [facility] Neutrophils % 64.2 44.0 - 73.0 % 07/24/2021 10:02 AM MACHINE CLERICAL VERIFIER [facility] Lymphocytes % 21.5 20.0 - 43.0 % 07/24/2021 10:02 AM MACHINE CLERICAL VERIFIER [facility] Monocytes % 10.7 5.0 - 13.0 % 07/24/2021 10:02 AM [facility] Eosinophils % 3.1 0.0 - 6.0 % 07/24/2021 10:02 AM [facility] Basophils % 0.2 0.0 - 2.0 % 07/24/2021 10:02 AM [facility] Immature Granulocytes 0.3 0 - 1 % 07/24/2021 10:02 AM [facility] Neutrophil Absolute 5.90 2.01 - 7.14 x10E9/L 07/24/2021 10:02 AM [facility] Lymphocytes Absolute 1.97 1.07 - 3.94 x10E9/L 07/24/2021 10:02 AM [facility] Monocytes Absolute 0.98 0.26 - 1.07 x10E9/L 07/24/2021 10:02 AM [facility] Eosinophils Absolute 0.28 0 - 0.47 x10E9/L 07/24/2021 10:02 AM [facility] Basophils Absolute 0.02 0 - 0.08 x10E9/L 07/24/2021 10:02 AM [facility] Immature Granulocytes Absolute 0.03 0.00 - 0.06 x10E9/L 07/24/2021 10:02 AM [facility] nRBC Auto 0 /100 WBC 07/24/2021 10:02 AM [facility] Blood BLOOD SPECIMEN / Unknown Venipuncture / Unknown 07/24/2021 3:45 AM MACHINE CLERICAL VERIFIER 07/24/2021 9:30 AM [facility] Vinicio Quintanilla MD LAB - HEMATOLOGY ORD ERABLES [facility] [address] [place] [address] * (ABNORMAL) COMPREHENSIVE METABOLIC PANEL (07/24/2021 3:45 AM [facility]) [facility] Glucose 110(H) 70 - 105 mg/dL 07/24/2021 10:36 AM [facility] Sodium 141 136 - 145 mmol/L 07/24/2021 10:36 AM [facility] Potassium 4.7 3.5 - 5.1 mmol/L 07/24/2021 10:36 AM [facility] Chloride 102 98 - 107 mmol/L 07/24/2021 10:36 AM [facility] CO2 25 23 - 31 mmol/L 07/24/2021 10:36 AM [facility] Calcium 10.3 8.4 - 10.4 mg/dL 07/24/2021 10:36 AM [facility] Anion Gap 14 8 - 18 mmol/L 07/24/2021 10:36 AM [facility] BUN 33(H) 8.9 - 20.6 mg/dL 07/24/2021 10:36 AM [facility] Creatinine 1.07 0.72 - 1.25 mg/dL 07/24/2021 10:36 AM [facility] Alkaline Phosphatase 195(H) 40 - 150 U/L 07/24/2021 10:36 AM [facility] ALT 40 0 - 61 U/L 07/24/2021 10:36 AM [facility] AST 21 5 - 34 U/L 07/24/2021 10:36 AM [facility] Protein Total 7.7 6.4 - 8.3 gm/dL 07/24/2021 10:36 AM [facility] Albumin 3.7 3.5 - 5.2 gm/dL 07/24/2021 10:36 AM [facility] Bilirubin Total 0.5 0.2 - 1.2 mg/dL 07/24/2021 10:36 AM [facility] eGFR by CKD-EPI >90 >=90 mL/min/1.7 3 m2 07/24/2021 10:36 AM [facility] Blood BLOOD SPECIMEN / Unknown Venipuncture / Unknown 07/24/2021 3:45 AM MACHINE CLERICAL VERIFIER 07/24/2021 9:30 AM [facility] - 07/24/2021 10:36 AM [facility] eGFR result was calculated using the updated CKD-EPI Creatinine Equations (2020). Prior to go live 2021 the eGFR was calculated using the MDRD calculation. Please note Reference Range change. Vinicio Quintanilla MD LAB - CHEMISTRY ORDE MIRIAN [facility] [address] [place] [address] documented in this encounter Visit Diagnoses Not on filedocumented in this encounter Care Teams [employer] Biology Teacher Relationship Specialty Start Date End Date Pepe Martel MD [address] [place] [address] [address] [place] [address] PCP - General 08/14/16 documented as of this encounter
--- OUTSIDE RECORDS SUMMARY | 2024-08-23 06:07 | XMS_ITS | Encounter Summary ---
Author Organization [facility] Address [address] [place] [address] Care Team Providers Care Portrait Artist Name Role Phone Pepe Martel MD Primary Care Provider [phone] Encounter Details Date Type Department Care Team (Late st Contact Info) Description 07/14/2021 Lab Requisition [facility] [address] [place] [address] [place] [address] [place] [address] Social History Tobacco Use Types Packs/Day Years [...] W AUTO DIFFERENTIAL STAT 07/14/2021 5:19 AM LUMP RECEIVER COMPREHENSIVE METABOLIC PANEL STAT 07/14/2021 5:19 AM LUMP RECEIVER documented in this encounter Results * (ABNORMAL) CBC WITH DIFFERENTIAL (07/14/2021 5:19 AM LUMP RECEIVER) WBC 9.1 4.4 - 10.7 x10E9/L 07/14/2021 1:59 PM LUMP RECEIVER [facility] WBC Corrected 07/14/2021 1:59 PM LUMP RECEIVER [facility] RBC 4.39 3.80 - 5.40 x10E12/L 07/14/2021 1:59 PM LUMP RECEIVER [facility] Hemoglobin 11.4(L) 12.0 - 17.6 gm/dL 07/14/2021 1:59 PM LUMP RECEIVER [facility] Hematocrit 36.6 35.2 - 51.7 % 07/14/2021 1:59 PM LUMP RECEIVER [facility] MCV 83.4 80.7 - 98.3 fl 07/14/2021 1:59 PM LUMP RECEIVER [facility] MCH 26.0(L) 26.7 - 34.0 pg 07/14/2021 1:59 PM LUMP RECEIVER [facility] MCHC 31.1 30.8 - 35.9 gm/dL 07/14/2021 1:59 PM LUMP RECEIVER [facility] Platelet Count 481(H) 153 - 416 x10E9/L 07/14/2021 1:59 PM LUMP RECEIVER [facility] RDW-CV 13.4 12.1 - 14.9 % 07/14/2021 1:59 PM LUMP RECEIVER [facility] MPV 9.7 9.4 - 12.9 fl 07/14/2021 1:59 PM LUMP RECEIVER [facility] Neutrophils % 63.5 44.0 - 73.0 % 07/14/2021 1:59 PM LUMP RECEIVER [facility] Lymphocytes % 23.0 20.0 - 43.0 % 07/14/2021 1:59 PM LUMP RECEIVER [facility] Monocytes % 8.6 5.0 - 13.0 % 07/14/2021 1:59 PM [facility] Eosinophils % 4.2 0.0 - 6.0 % 07/14/2021 1:59 PM [facility] Basophils % 0.4 0.0 - 2.0 % 07/14/2021 1:59 PM [facility] Immature Granulocytes 0.3 0 - 1 % 07/14/2021 1:59 PM [facility] Neutrophil Absolute 5.79 2.01 - 7.14 x10E9/L 07/14/2021 1:59 PM [facility] Lymphocytes Absolute 2.10 1.07 - 3.94 x10E9/L 07/14/2021 1:59 PM [facility] Monocytes Absolute 0.78 0.26 - 1.07 x10E9/L 07/14/2021 1:59 PM [facility] Eosinophils Absolute 0.38 0 - 0.47 x10E9/L 07/14/2021 1:59 PM [facility] Basophils Absolute 0.04 0 - 0.08 x10E9/L 07/14/2021 1:59 PM [facility] Immature Granulocytes Absolute 0.03 0.00 - 0.06 x10E9/L 07/14/2021 1:59 PM [facility] nRBC Auto 0 /100 WBC 07/14/2021 1:59 PM [facility] Blood BLOOD SPECIMEN / Unknown Venipuncture / Unknown 07/14/2021 5:19 AM LUMP RECEIVER 07/14/2021 12:29 PM [facility] Vinicio Quintanilla MD LAB - HEMATOLOGY ORD ERABLES [facility] [address] [place] [address] * (ABNORMAL) COMPREHENSIVE METABOLIC PANEL (07/14/2021 5:19 AM [facility]) [facility] Glucose 100 70 - 105 mg/dL 07/14/2021 1:24 PM [facility] Sodium 140 136 - 145 mmol/L 07/14/2021 1:24 PM [facility] Potassium 4.4 3.5 - 5.1 mmol/L 07/14/2021 1:24 PM [facility] Chloride 99 98 - 107 mmol/L 07/14/2021 1:24 PM [facility] CO2 26 23 - 31 mmol/L 07/14/2021 1:24 PM [facility] Calcium 10.0 8.4 - 10.4 mg/dL 07/14/2021 1:24 PM [facility] Anion Gap 15 8 - 18 mmol/L 07/14/2021 1:24 PM [facility] BUN 26(H) 8.9 - 20.6 mg/dL 07/14/2021 1:24 PM [facility] Creatinine 0.93 0.72 - 1.25 mg/dL 07/14/2021 1:24 PM [facility] eGFR by CKD-EPI >90 >=90 mL/min/1.7 3 m2 07/14/2021 1:24 PM [facility] Alkaline Phosphatase 139 40 - 150 U/L 07/14/2021 1:24 PM [facility] ALT 27 0 - 61 U/L 07/14/2021 1:24 PM [facility] AST 16 5 - 34 U/L 07/14/2021 1:24 PM [facility] Protein Total 7.6 6.4 - 8.3 gm/dL 07/14/2021 1:24 PM [facility] Albumin 3.8 3.5 - 5.2 gm/dL 07/14/2021 1:24 PM [facility] Bilirubin Total 0.3 0.2 - 1.2 mg/dL 07/14/2021 1:24 PM [facility] Blood BLOOD SPECIMEN / Unknown Venipuncture / Unknown 07/14/2021 5:19 AM LUMP RECEIVER 07/14/2021 12:29 PM [facility] - 07/14/2021 1:24 PM [facility] eGFR result was calculated using the updated CKD-EPI Creatinine Equations (2020). Prior to go live 2021 the eGFR was calculated using the MDRD calculation. Please note Reference Range change. Vinicio Quintanilla MD LAB - CHEMISTRY JOSE ENRIQUE VELA [facility] Organization Address City/State/ZIP Co de Phone Number [facility] [address] [place] [address] documented in this encounter Visit Diagnoses Not on filedocumented in this encounter Care Teams Portrait Artist Relationship Specialty Start Date End Date Pepe Martel MD [address] [place] [id number] PCP - General 08/14/16 documented as of this encounter
--- OUTSIDE RECORDS SUMMARY | 2024-08-23 06:07 | XMS_ITS | Encounter Summary ---
Author Organization [facility] Address [address] [place] [address] Care Team Providers Care Digital Product Manager Name Role Phone Pepe Martel MD Primary Care Provider [phone] Encounter Details Date Type Department Care Team (Late st Contact Info) Description 08/14/2021 Lab Requisition [facility] [address] [place] [address] [place] [address] [place] [address] Social History Tobacco Use Types Packs/Day Years [...] - 31 mmol/L 08/14/2021 9:28 AM CDT [facility] Calcium 10.0 8.4 - 10.4 mg/dL 08/14/2021 9:28 AM CDT [facility] Anion Gap 11 8 - 18 mmol/L 08/14/2021 9:28 AM CDT [facility] BUN 26(H) 8.9 - 20.6 mg/dL 08/14/2021 9:28 AM CDT [facility] Creatinine 0.73 0.72 - 1.25 mg/dL 08/14/2021 9:28 AM CDT [facility] Alkaline Phosphatase 119 40 - 150 U/L 08/14/2021 9:28 AM CDT [facility] ALT 20 0 - 61 U/L 08/14/2021 9:28 AM CDT [facility] AST 13 5 - 34 U/L 08/14/2021 9:28 AM CDT [facility] Protein Total 7.1 6.4 - 8.3 gm/dL 08/14/2021 9:28 AM CDT [facility] Albumin 3.4(L) 3.5 - 5.2 gm/dL 08/14/2021 9:28 AM CDT [facility] Bilirubin Total 0.3 0.2 - 1.2 mg/dL 08/14/2021 9:28 AM CDT [facility] eGFR by CKD-EPI >90 >=90 mL/min/1.7 3 m2 08/14/2021 9:28 AM CDT [facility] Blood BLOOD SPECIMEN / Unknown Venipuncture / Unknown 08/14/2021 4:05 AM CDT 08/14/2021 8:56 AM CDT Narrative [facility] - 08/14/2021 9:28 AM CDT eGFR result was calculated using the updated CKD-EPI Creatinine Equations (2020). Prior to go live 2021 the eGFR was calculated using the MDRD calculation. Please note Reference Range change. Vinicio Quintanilla MD LAB - CHEMISTRY JOSE ENRIQUE VELA [facility] Organization Address City/State/ZIP Co de Phone Number [facility] [address] [place] [address] documented in this encounter Visit Diagnoses Not on filedocumented in this encounter Care Teams Digital Product Manager Relationship Specialty Start Date End Date Pepe Martel MD [address] [place] [id number] PCP - General 08/14/16 documented as of this encounter
--- OUTSIDE RECORDS SUMMARY | 2024-08-23 06:07 | XMS_ITS | Encounter Summary ---
Author Organization [facility] Address [address] [place] [address] Care Team Providers Care Physical Integration Practitioner Name Role Phone Pepe Martel MD Primary Care Provider [phone] Encounter Details Date Type Department Care Team (Late st Contact Info) Description 08/07/2021 Lab Requisition [facility] [address] [place] [address] [place] [address] [place] [address] Social History Tobacco Use Types Packs/Day Years [...] - 105 mg/dL 08/07/2021 10:27 AM CDT [facility] Sodium 144 136 - 145 mmol/L 08/07/2021 10:27 AM CDT [facility] Potassium 4.5 3.5 - 5.1 mmol/L 08/07/2021 10:27 AM CDT [facility] Chloride 109(H) 98 - 107 mmol/L 08/07/2021 10:27 AM CDT [facility] CO2 22(L) 23 - 31 mmol/L 08/07/2021 10:27 AM CDT [facility] Calcium 9.6 8.4 - 10.4 mg/dL 08/07/2021 10:27 AM CDT [facility] Anion Gap 13 8 - 18 mmol/L 08/07/2021 10:27 AM CDT [facility] BUN 25(H) 8.9 - 20.6 mg/dL 08/07/2021 10:27 AM CDT [facility] Creatinine 0.89 0.72 - 1.25 mg/dL 08/07/2021 10:27 AM CDT [facility] Alkaline Phosphatase 110 40 - 150 U/L 08/07/2021 10:27 AM CDT [facility] ALT 19 0 - 61 U/L 08/07/2021 10:27 AM CDT [facility] AST 13 5 - 34 U/L 08/07/2021 10:27 AM CDT [facility] Protein Total 6.9 6.4 - 8.3 gm/dL 08/07/2021 10:27 AM CDT [facility] Albumin 3.4(L) 3.5 - 5.2 gm/dL 08/07/2021 10:27 AM CDT [facility] Bilirubin Total 0.3 0.2 - 1.2 mg/dL 08/07/2021 10:27 AM CDT [facility] eGFR by CKD-EPI >90 >=90 mL/min/1.7 3 m2 08/07/2021 10:27 AM CDT [facility] Blood BLOOD SPECIMEN / Unknown Venipuncture / Unknown 08/07/2021 5:33 AM CDT 08/07/2021 9:34 AM CDT Narrative [facility] - 08/07/2021 10:27 AM CDT eGFR result was calculated using the updated CKD-EPI Creatinine Equations (2020). Prior to go live 2021 the eGFR was calculated using the MDRD calculation. Please note Reference Range change. Vinicio Quintanilla MD LAB - [facility] Organization Address City/State/ZIP Co de Phone Number [facility] [address] [place], [place] [id number] * (ABNORMAL) CBC WITH DIFFERENTIAL (08/07/2021 5:33 AM CDT) WBC 9.0 4.4 - 10.7 x10E9/L 08/07/2021 9:48 AM CDT [facility] WBC Corrected 08/07/2021 9:48 AM CDT [facility] RBC 3.78(L) 3.80 - 5.40 x10E12/L 08/07/2021 9:48 AM CDT [facility] Hemoglobin 9.9(L) 12.0 - 17.6 gm/dL 08/07/2021 9:48 AM CDT [facility] Hematocrit 33.0(L) 35.2 - 51.7 % 08/07/2021 9:48 AM CDT [facility] MCV 87.3 80.7 - 98.3 fl 08/07/2021 9:48 AM CDT [facility] MCH 26.2(L) 26.7 - 34.0 pg 08/07/2021 9:48 AM CDT [facility] MCHC 30.0(L) 30.8 - 35.9 gm/dL 08/07/2021 9:48 AM [facility] Platelet Count 439(H) 153 - 416 x10E9/L 08/07/2021 9:48 AM [facility] RDW-CV 16.0(H) 12.1 - 14.9 % 08/07/2021 9:48 AM [facility] MPV 10.6 9.4 - 12.9 fl 08/07/2021 9:48 AM [facility] Neutrophils % 68.5 44.0 - 73.0 % 08/07/2021 9:48 AM [facility] Lymphocytes % 16.3(L) 20.0 - 43.0 % 08/07/2021 9:48 AM [facility] Monocytes % 10.0 5.0 - 13.0 % 08/07/2021 9:48 AM [facility] Eosinophils % 4.4 0.0 - 6.0 % 08/07/2021 9:48 AM [facility] Basophils % 0.4 0.0 - 2.0 % 08/07/2021 9:48 AM [facility] Immature Granulocytes 0.4 0 - 1 % 08/07/2021 9:48 AM [facility] Neutrophil Absolute 6.19 2.01 - 7.14 x10E9/L 08/07/2021 9:48 AM [facility] Lymphocytes Absolute 1.47 1.07 - 3.94 x10E9/L 08/07/2021 9:48 AM [facility] Monocytes Absolute 0.90 0.26 - 1.07 x10E9/L 08/07/2021 9:48 AM [facility] Eosinophils Absolute 0.40 0 - 0.47 x10E9/L 08/07/2021 9:48 AM [facility] Basophils Absolute 0.04 0 - 0.08 x10E9/L 08/07/2021 9:48 AM [facility] Immature Granulocytes Absolute 0.04 0.00 - 0.06 x10E9/L 08/07/2021 9:48 AM [facility] nRBC Auto 0 /100 WBC 08/07/2021 9:48 AM [facility] Blood BLOOD SPECIMEN / Unknown Venipuncture / Unknown 08/07/2021 5:33 AM CDT 08/07/2021 9:34 AM CDT Vinicio Quintanilla MD LAB - HEMATOLOGY ORD ERABLES Performing Organization Address City/State/[facility] Co de Phone Number [facility] [address] [place] [address] documented in this encounter Visit Diagnoses Not on filedocumented in this encounter Care Teams Physical Integration Practitioner Relationship Specialty Start Date End Date Pepe Martel MD [address] [facility] [address] [place] [address] PCP - General 08/14/16 documented as of this encounter
--- OUTSIDE RECORDS SUMMARY | 2024-08-23 06:07 | XMS_ITS | Encounter Summary ---
Author Organization [facility] Address [address] [place] [address] Care Team Providers Care Barrel Raiser Helper Name Role Phone Pepe Martel MD Primary Care Provider [phone] Encounter Details Date Type Department Care Team (Late st Contact Info) Description 06/30/2021 Lab Requisition [facility] [address] [place] [address] [place] [address] [place] [address] Social History Tobacco Use Types Packs/Day Years [...] W AUTO DIFFERENTIAL STAT 06/30/2021 2:30 AM RESEARCH ASSOCIATE POLICY COMPREHENSIVE METABOLIC PANEL STAT 06/30/2021 2:30 AM RESEARCH ASSOCIATE POLICY documented in this encounter Results * (ABNORMAL) CBC WITH DIFFERENTIAL (06/30/2021 2:30 AM RESEARCH ASSOCIATE POLICY) WBC 9.5 4.4 - 10.7 x10E9/L 06/30/2021 9:07 AM RESEARCH ASSOCIATE POLICY [facility] WBC Corrected 06/30/2021 9:07 AM RESEARCH ASSOCIATE POLICY [facility] RBC 4.45 3.80 - 5.40 x10E12/L 06/30/2021 9:07 AM [employer]EARCH ASSOCIATE POLICY [facility] Hemoglobin 11.8(L) 12.0 - 17.6 gm/dL 06/30/2021 9:07 AM RESEARCH ASSOCIATE POLICY [facility] Hematocrit 37.1 35.2 - 51.7 % 06/30/2021 9:07 AM RESEARCH ASSOCIATE POLICY [facility] MCV 83.4 80.7 - 98.3 fl 06/30/2021 9:07 AM RESEARCH ASSOCIATE POLICY [facility] MCH 26.5(L) 26.7 - 34.0 pg 06/30/2021 9:07 AM RESEARCH ASSOCIATE POLICY [facility] MCHC 31.8 30.8 - 35.9 gm/dL 06/30/2021 9:07 AM RESEARCH ASSOCIATE POLICY [facility] Platelet Count 468(H) 153 - 416 x10E9/L 06/30/2021 9:07 AM RESEARCH ASSOCIATE POLICY [facility] RDW-CV 12.8 12.1 - 14.9 % 06/30/2021 9:07 AM RESEARCH ASSOCIATE POLICY [facility] MPV 10.1 9.4 - 12.9 fl 06/30/2021 9:07 AM RESEARCH ASSOCIATE POLICY [facility] Neutrophils % 63.1 44.0 - 73.0 % 06/30/2021 9:07 AM RESEARCH ASSOCIATE POLICY [facility] Lymphocytes % 24.4 20.0 - 43.0 % 06/30/2021 9:07 AM RESEARCH ASSOCIATE POLICY [facility] Monocytes % 8.0 5.0 - 13.0 % 06/30/2021 9:[address] [facility] Eosinophils % 3.6 0.0 - 6.0 % 06/30/2021 9:[address] [facility] Basophils % 0.5 0.0 - 2.0 % 06/30/2021 9:[address] [facility] Immature Granulocytes 0.4 0 - 1 % 06/30/2021 9:[address] [facility] Neutrophil Absolute 6.00 2.01 - 7.14 x10E9/L 06/30/2021 9:[address] [facility] Lymphocytes Absolute 2.32 1.07 - 3.94 x10E9/L 06/30/2021 9:[address] [facility] Monocytes Absolute 0.76 0.26 - 1.07 x10E9/L 06/30/2021 9:[address] [facility] Eosinophils Absolute 0.34 0 - 0.47 x10E9/L 06/30/2021 9:[address] [facility] Basophils Absolute 0.05 0 - 0.08 x10E9/L 06/30/2021 9:[address] [facility] Immature Granulocytes Absolute 0.04 0.00 - 0.06 x10E9/L 06/30/2021 9:[address] [facility] nRBC Auto 0 /100 WBC 06/30/2021 9:[address] [facility] Blood BLOOD SPECIMEN / Unknown Venipuncture / Unknown 06/30/2021 2:30 AM RESEARCH ASSOCIATE POLICY 06/30/2021 8:35 AM [facility] Vinicio Quintanilla MD LAB - HEMATOLOGY ORD ERABLES [facility] [address] [place] [address] * (ABNORMAL) COMPREHENSIVE METABOLIC PANEL (06/30/2021 2:30 AM [facility]) [facility] Glucose 107(H) 70 - 105 mg/dL 06/30/2021 9:[address] [facility] Sodium 141 136 - 145 mmol/L 06/30/2021 9:[address] [facility] Potassium 4.8 3.5 - 5.1 mmol/L 06/30/2021 9:[address] [facility] Chloride 102 98 - 107 mmol/L 06/30/2021 9:[address] [facility] CO2 27 23 - 31 mmol/L 06/30/2021 9:[address] [facility] Calcium 10.0 8.4 - 10.4 mg/dL 06/30/2021 9:[address] [facility] Anion Gap 12 8 - 18 mmol/L 06/30/2021 9:[address] [facility] BUN 31(H) 8.9 - 20.6 mg/dL 06/30/2021 9:[address] [facility] Creatinine 1.06 0.72 - 1.25 mg/dL 06/30/2021 9:[address] [facility] Alkaline Phosphatase 143 40 - 150 U/L 06/30/2021 9:[address] [facility] ALT 38 0 - 61 U/L 06/30/2021 9:[address] [facility] AST 17 5 - 34 U/L 06/30/2021 9:[address] [facility] Protein Total 8.1 6.4 - 8.3 gm/dL 06/30/2021 9:[address] [facility] Albumin 3.9 3.5 - 5.2 gm/dL 06/30/2021 9:[address] [facility] Bilirubin Total 0.3 0.2 - 1.2 mg/dL 06/30/2021 9:[address] [facility] eGFR by MDRD >60 >60 mL/min/1.7 3m2 06/30/2021 9:[address] [facility] eGFR by MDRD >60 >60 mL/min/1.7 3m2 06/30/2021 9:[address] [facility] Blood BLOOD SPECIMEN / Unknown Venipuncture / Unknown 06/30/2021 2:30 AM RESEARCH ASSOCIATE POLICY 06/30/2021 8:35 AM [facility] Vinicio Quintanilla MD LAB - CHEMISTRY JOSE ENRIQUE VELA [facility] Organization Address City/State/ZIP Co de Phone Number [facility] [address] [place] [address] documented in this encounter Visit Diagnoses Not on filedocumented in this encounter Care Teams Barrel Raiser Helper Relationship Specialty Start Date End Date Pepe Martel MD [address] [place] [id number] PCP - General 08/14/16 documented as of this encounter
--- OUTSIDE RECORDS SUMMARY | 2024-08-23 06:07 | XMS_ITS | Encounter Summary ---
Author Organization [facility] Address [address] [place] [address] Care Team Providers Care Dental Insurance Biller Name Role Phone Pepe Martel MD Primary Care Provider [phone] Encounter Details Date Type Department Care Team (Late st Contact Info) Description 08/06/2021 Lab Requisition [facility] [address] [place] [address] Davon Laws MD [address] [place] [address] Social History Tobacco Use Types [...] - 0.08 x10E9/L 08/06/2021 9:46 AM CDT [facility] Cells Counted 100 # cells 08/06/2021 9:46 AM CDT [facility] Platelet Estimation Increased (A) Normal, Adequate platelets 08/06/2021 9:46 AM CDT [facility] WBC Morph Normal 08/06/2021 9:46 AM CDT [facility] Polychromasia Occasiona l(A) None 08/06/2021 9:46 AM CDT [facility] Fragmented RBCs Occasiona l(A) None 08/06/2021 9:46 AM CDT [facility] Clumped Platelets Occasiona l(A) None 08/06/2021 9:46 AM CDT [facility] Blood BLOOD SPECIMEN / Unknown Venipuncture / Unknown 08/06/2021 5:17 AM CDT 08/06/2021 8:40 AM CDT Davon Laws MD LAB - HEMATOLOGY ORD ERABLES Performing Organization Address City/State/[facility] Co de Phone Number [facility] [address] [place], [place] [id number] * (ABNORMAL) CBC WITH DIFFERENTIAL (08/06/2021 5:17 AM CDT) WBC 10.5 4.4 - 10.7 x10E9/L 08/06/2021 8:51 AM CDT [facility] WBC Corrected 08/06/2021 8:51 AM CDT [facility] RBC 3.89 3.80 - 5.40 x10E12/L 08/06/2021 8:51 AM CDT [facility] Hemoglobin 10.2(L) 12.0 - 17.6 gm/dL 08/06/2021 8:51 AM CDT [facility] Hematocrit 34.2(L) 35.2 - 51.7 % 08/06/2021 8:51 AM CDT [facility] MCV 87.9 80.7 - 98.3 fl 08/06/2021 8:51 AM CDT [facility] MCH 26.2(L) 26.7 - 34.0 pg 08/06/2021 8:51 AM CDT [facility] MCHC 29.8(L) 30.8 - 35.9 gm/dL 08/06/2021 8:51 AM CDT [facility] Platelet Count 470(H) 153 - 416 x10E9/L 08/06/2021 8:51 AM CDT [facility] RDW-CV 15.8(H) 12.1 - 14.9 % 08/06/2021 8:51 AM CDT [facility] MPV 10.6 9.4 - 12.9 fl 08/06/2021 8:51 AM CDT [facility] nRBC Auto 0 /100 WBC 08/06/2021 8:51 AM CDT [facility] Blood BLOOD SPECIMEN / Unknown Venipuncture / Unknown 08/06/2021 5:17 AM CDT 08/06/2021 8:40 AM CDT Davon Laws MD LAB - HEMATOLOGY ORD ERABLES Performing Organization Address City/State/[facility] Co de Phone Number [facility] [address] [place] [address] documented in this encounter Visit Diagnoses Not on filedocumented in this encounter Care Teams Dental Insurance Biller Relationship Specialty Start Date End Date Pepe Martel MD [address] [place] [address] [address] [place] [address] PCP - General 08/14/16 documented as of this encounter
--- OUTSIDE RECORDS SUMMARY | 2024-08-23 06:07 | XMS_ITS | Encounter Summary ---
Author Organization [facility] Address [address] [place] [address] Care Team Providers Care Cardiac Exercise Specialist Name Role Phone Pepe Martel MD Primary Care Provider [phone] Encounter Details Date Type Department Care Team (Late st Contact Info) Description 07/07/2021 Lab Requisition [facility] [address] [place] [address] [place] [address] [place] [address] Social History Tobacco Use Types Packs/Day Years [...] W AUTO DIFFERENTIAL STAT 07/07/2021 4:00 AM GOLD BURNISHER COMPREHENSIVE METABOLIC PANEL STAT 07/07/2021 4:00 AM GOLD BURNISHER documented in this encounter Results * (ABNORMAL) CBC WITH DIFFERENTIAL (07/07/2021 4:00 AM GOLD BURNISHER) WBC 11.3(H) 4.4 - 10.7 x10E9/L 07/07/2021 10:39 AM GOLD BURNISHER [facility] WBC Corrected 07/07/2021 10:39 AM GOLD BURNISHER [facility] RBC 4.53 3.80 - 5.40 x10E12/L 07/07/2021 10:[address] [facility] Hemoglobin 11.9(L) 12.0 - 17.6 gm/dL 07/07/2021 10:39 AM GOLD BURNISHER [facility] Hematocrit 38.5 35.2 - 51.7 % 07/07/2021 10:[address] [facility] MCV 85.0 80.7 - 98.3 fl 07/07/2021 10:[address] [facility] MCH 26.3(L) 26.7 - 34.0 pg 07/07/2021 10:39 AM GOLD BURNISHER [facility] MCHC 30.9 30.8 - 35.9 gm/dL 07/07/2021 10:[address] [facility] Platelet Count 385 153 - 416 x10E9/L 07/07/2021 10:39 AM GOLD BURNISHER [facility] RDW-CV 13.2 12.1 - 14.9 % 07/07/2021 10:[address] [facility] MPV 10.7 9.4 - 12.9 fl 07/07/2021 10:39 AM GOLD BURNISHER [facility] Neutrophils % 68.6 44.0 - 73.0 % 07/07/2021 10:39 AM GOLD BURNISHER [facility] Lymphocytes % 18.3(L) 20.0 - 43.0 % 07/07/2021 10:39 AM GOLD BURNISHER [facility] Monocytes % 7.7 5.0 - 13.0 % 07/07/2021 10:[address] [facility] Eosinophils % 4.6 0.0 - 6.0 % 07/07/2021 10:[address] [facility] Basophils % 0.4 0.0 - 2.0 % 07/07/2021 10:[address] [facility] Immature Granulocytes 0.4 0 - 1 % 07/07/2021 10:[address] [facility] Neutrophil Absolute 7.80(H) 2.01 - 7.14 x10E9/L 07/07/2021 10:[address] [facility] Lymphocytes Absolute 2.07 1.07 - 3.94 x10E9/L 07/07/2021 10:[address] [facility] Monocytes Absolute 0.87 0.26 - 1.07 x10E9/L 07/07/2021 10:[address] [facility] Eosinophils Absolute 0.52(H) 0 - 0.47 x10E9/L 07/07/2021 10:[address] [facility] Basophils Absolute 0.04 0 - 0.08 x10E9/L 07/07/2021 10:[address] [facility] Immature Granulocytes Absolute 0.04 0.00 - 0.06 x10E9/L 07/07/2021 10:[address] [facility] nRBC Auto 0 /100 WBC 07/07/2021 10:[address] [facility] Blood BLOOD SPECIMEN / Unknown Venipuncture / Unknown 07/07/2021 4:00 AM [facility] 07/07/2021 9:27 AM [facility] Vinicio Quintanilla MD LAB - HEMATOLOGY ORD ERABLES [facility] [address] [place] [address] * (ABNORMAL) COMPREHENSIVE METABOLIC PANEL (07/07/2021 4:00 AM [facility]) [facility] Glucose 111(H) 70 - 105 mg/dL 07/07/2021 10:[address] [facility] Sodium 143 136 - 145 mmol/L 07/07/2021 10:[address] [facility] Potassium 4.4 3.5 - 5.1 mmol/L 07/07/2021 10:[address] [facility] Chloride 103 98 - 107 mmol/L 07/07/2021 10:[address] [facility] CO2 28 23 - 31 mmol/L 07/07/2021 10:[address] [facility] Calcium 10.1 8.4 - 10.4 mg/dL 07/07/2021 10:[address] [facility] Anion Gap 12 8 - 18 mmol/L 07/07/2021 10:[address] [facility] BUN 35(H) 8.9 - 20.6 mg/dL 07/07/2021 10:[address] [facility] Creatinine 0.96 0.72 - 1.25 mg/dL 07/07/2021 10:[address] [facility] Alkaline Phosphatase 139 40 - 150 U/L 07/07/2021 10:[address] [facility] ALT 35 0 - 61 U/L 07/07/2021 10:[address] [facility] AST 17 5 - 34 U/L 07/07/2021 10:[address] [facility] Protein Total 7.8 6.4 - 8.3 gm/dL 07/07/2021 10:[address] [facility] Albumin 3.9 3.5 - 5.2 gm/dL 07/07/2021 10:[address] [facility] Bilirubin Total 0.3 0.2 - 1.2 mg/dL 07/07/2021 10:[address] [facility] eGFR by MDRD >60 >60 mL/min/1.7 3m2 07/07/2021 10:[address] [facility] eGFR by MDRD >60 >60 mL/min/1.7 3m2 07/07/2021 10:[address] [facility] Blood BLOOD SPECIMEN / Unknown Venipuncture / Unknown 07/07/2021 4:00 AM [facility] 07/07/2021 9:27 AM [facility] Vinicio Quintanilla MD LAB - CHEMISTRY JOSE ENRIQUE VELA [facility] Organization Address City/State/ZIP Co de Phone Number [facility] [address] [place] [address] documented in this encounter Visit Diagnoses Not on filedocumented in this encounter Care Teams Cardiac Exercise Specialist Relationship Specialty Start Date End Date Pepe Martel MD [address] [place] [phone] PCP - General 08/14/16 documented as of this encounter
--- OUTSIDE RECORDS SUMMARY | 2024-08-23 06:07 | XMS_ITS | Encounter Summary ---
Author Organization [facility] Address [address] [place] [address] Care Team Providers Care Hard Hat Diver Name Role Phone Pepe Martel MD Primary Care Provider [phone] Encounter Details Date Type Department Care Team (Late st Contact Info) Description 07/18/2021 Lab Requisition [facility] [address] [place] [address] [place] [address] [place] [address] Social History Tobacco Use Types Packs/Day Years [...] W AUTO DIFFERENTIAL STAT 07/17/2021 3:19 AM [employer] documented in this encounter Results * (ABNORMAL) CBC WITH DIFFERENTIAL (07/17/2021 3:19 AM [employer]) WBC 9.8 4.4 - 10.7 x10E9/L 07/18/2021 8:30 AM [employer] [facility] WBC Corrected 07/18/2021 8:30 AM [facility] RBC 4.38 3.80 - 5.40 x10E12/L 07/18/2021 8:30 AM [facility] Hemoglobin 11.5(L) 12.0 - 17.6 gm/dL 07/18/2021 8:30 AM [facility] Hematocrit 36.0 35.2 - 51.7 % 07/18/2021 8:30 AM [employer] [facility] MCV 82.2 80.7 - 98.3 fl 07/18/2021 8:30 AM [employer] [facility] MCH 26.3(L) 26.7 - 34.0 pg 07/18/2021 8:30 AM [employer] [facility] MCHC 31.9 30.8 - 35.9 gm/dL 07/18/2021 8:30 AM [facility] Platelet Count 528(H) 153 - 416 x10E9/L 07/18/2021 8:30 AM [employer] [facility] RDW-CV 13.6 12.1 - 14.9 % 07/18/2021 8:30 AM [employer] [facility] MPV 9.5 9.4 - 12.9 fl 07/18/2021 8:30 AM [employer] [facility] Neutrophils % 67.2 44.0 - 73.0 % 07/18/2021 8:30 AM [employer] [facility] Lymphocytes % 17.3(L) 20.0 - 43.0 % 07/18/2021 8:30 AM [employer] [facility] Monocytes % 10.9 5.0 - 13.0 % 07/18/2021 8:30 AM [employer] [facility] Eosinophils % 3.5 0.0 - 6.0 % 07/18/2021 8:30 AM [employer] [facility] Basophils % 0.4 0.0 - 2.0 % 07/18/2021 8:30 AM [employer] [facility] Immature Granulocytes 0.7 0 - 1 % 07/18/2021 8:30 AM [employer] [facility] Neutrophil Absolute 6.57 2.01 - 7.14 x10E9/L 07/18/2021 8:30 AM [employer] [facility] Lymphocytes Absolute 1.69 1.07 - 3.94 x10E9/L 07/18/2021 8:30 AM [employer] [facility] Monocytes Absolute 1.07 0.26 - 1.07 x10E9/L 07/18/2021 8:30 AM [facility] Eosinophils Absolute 0.34 0 - 0.47 x10E9/L 07/18/2021 8:30 AM [employer] [facility] Basophils Absolute 0.04 0 - 0.08 x10E9/L 07/18/2021 8:30 AM [facility] Immature Granulocytes Absolute 0.07(H) 0.00 - 0.06 x10E9/L 07/18/2021 8:30 AM [facility] nRBC Auto 0 /100 WBC 07/18/2021 8:30 AM [facility] Blood BLOOD SPECIMEN / Unknown Venipuncture / Unknown 07/17/2021 3:19 AM [employer] 07/18/2021 8:20 AM [employer] Vinicio Quintanilla MD LAB - HEMATOLOGY ORD ERABLES Performing Organization Address City/State/[facility] Co de Phone Number [facility] [address] [place] [address] documented in this encounter Visit Diagnoses Not on filedocumented in this encounter Care Teams Hard Hat Diver Relationship Specialty Start Date End Date Pepe Martel MD [address] [place] [id number] PCP - General 08/14/16 documented as of this encounter
--- OUTSIDE RECORDS SUMMARY | 2024-08-23 06:07 | XMS_ITS | Encounter Summary ---
Author Organization [facility] Address [address] [place] [address] Care Team Providers Care Advanced Manufacturing Vice President Name Role Phone Pepe Martel MD Primary Care Provider [phone] Encounter Details Date Type Department Care Team (Late st Contact Info) Description 07/04/2021 Lab Requisition [facility] [address] [place] [address] Fredy Sue [address] [place] [address] Social History Tobacco Use Types Packs/Day Years [...] MICROSCOPIC NO CULTURE STAT 07/04/2021 4:00 AM TRESTLE MECHANIC documented in this encounter Results * (ABNORMAL) URINALYSIS REFLEX TO MICROSCOPIC NO CULTURE (07/04/2021 4:00 AM TRESTLE MECHANIC) Color UA Yellow Straw, Yellow 07/04/2021 9:[address] [facility] Clarity UA Cloudy(A) Clear 07/04/2021 9:[address] [facility] Glucose UA Negative Negative 07/04/2021 9:38 AM TRESTLE MECHANIC [facility] Bilirubin UA Negative Negative 07/04/2021 9:38 AM TRESTLE MECHANIC [facility] Ketone UA Negative Negative 07/04/2021 9:[address] [facility] Specific [place] UA 1.021 1.005 - 1.030 07/04/2021 9:38 AM TRESTLE MECHANIC [facility] Blood UA Negative Negative 07/04/2021 9:[address] [facility] pH UA 7.0 5.0 - 8.0 pH 07/04/2021 9:[address] [facility] Protein UA Negative Negative 07/04/2021 9:[address] [facility] Urobilinogen UA Negative Negative mg/dL 07/04/2021 9:[address] [facility] Nitrite UA Negative Negative 07/04/2021 9:[address] [facility] Leukocyte UA Negative Negative 07/04/2021 9:[address] [facility] Urine Microscopy Urine microscopy not indicated 07/04/2021 9:[address] [facility] Urine URINE SPECIMEN OBTAINED BY CLEAN CATCH PROCEDURE / Unknown Collection / Unknown 07/04/2021 4:00 AM [facility] 07/04/2021 8:59 AM [facility] Narrative [facility] - 07/04/2021 9:38 AM [facility] Ascorbic Acid can cause false negative urine strip tests for blood, glucose, nitrite, and bilirubin. [facility] - URINALYSIS ORD ERABLES [facility] [address] [place] [address] documented in this encounter Visit Diagnoses Not on filedocumented in this encounter Care Teams [employer] Vice President Relationship Specialty Start Date End Date Pepe Martel MD [address] [place] [address] [address] [place] [address] PCP - General 08/14/16 documented as of this encounter
--- OUTSIDE RECORDS SUMMARY | 2024-08-23 06:07 | XMS_ITS | Encounter Summary ---
Author Organization [facility] Address [address] [place] [address] Care Team Providers Care Mold Checker Name Role Phone Pepe Martel MD Primary Care Provider [phone] Encounter Details Date Type Department Care Team (Late st Contact Info) Description 06/19/2021 Lab Requisition [facility] [address] [place] [address] [place] [address] [place] [address] Social History Tobacco Use Types Packs/Day Years [...] W AUTO DIFFERENTIAL Routine 06/19/2021 4:00 AM CUSTOMER SERVICE COORDINATOR COMPREHENSIVE METABOLIC PANEL Routine 06/19/2021 4:00 AM CUSTOMER SERVICE COORDINATOR documented in this encounter Results * (ABNORMAL) COMPREHENSIVE METABOLIC PANEL (06/19/2021 4:00 AM CUSTOMER SERVICE COORDINATOR) Glucose 132(H) 70 - 105 mg/dL 06/19/2021 10:35 AM CUSTOMER SERVICE COORDINATOR [facility] Sodium 141 136 - 145 mmol/L 06/19/2021 10:35 AM CUSTOMER SERVICE COORDINATOR [facility] Potassium 4.3 3.5 - 5.1 mmol/L 06/19/2021 10:35 AM [facility] Chloride 107 98 - 107 mmol/L 06/19/2021 10:35 AM [facility] CO2 27 23 - 31 mmol/L 06/19/2021 10:35 AM [facility] Calcium 10.0 8.4 - 10.4 mg/dL 06/19/2021 10:[address] [facility] Anion Gap 7(L) 8 - 18 mmol/L 06/19/2021 10:35 AM [facility] BUN 37(H) 8.9 - 20.6 mg/dL 06/19/2021 10:35 AM [facility] Creatinine 1.07 0.72 - 1.25 mg/dL 06/19/2021 10:35 AM [facility] Alkaline Phosphatase 144 40 - 150 U/L 06/19/2021 10:35 AM [facility] ALT 47 0 - 61 U/L 06/19/2021 10:[address] [facility] AST 22 5 - 34 U/L 06/19/2021 10:[address] [facility] Protein Total 8.4(H) 6.4 - 8.3 gm/dL 06/19/2021 10:35 AM CUSTOMER SERVICE COORDINATOR [facility] Albumin 3.9 3.5 - 5.2 gm/dL 06/19/2021 10:35 AM [facility] Bilirubin Total 0.2 0.2 - 1.2 mg/dL 06/19/2021 10:35 AM [facility] eGFR by MDRD >60 >60 mL/min/1.7 3m2 06/19/2021 10:35 AM [facility] eGFR by MDRD >60 >60 mL/min/1.7 3m2 06/19/2021 10:35 AM [facility] Blood BLOOD SPECIMEN / Unknown Venipuncture / Unknown 06/19/2021 4:00 AM CUSTOMER SERVICE COORDINATOR 06/19/2021 10:13 AM [facility] Vinicio Quintanilla MD LAB - CHEMISTRY TYLORE MIRIAN [facility] Organization Address City/State/ZIP Co de Phone Number [facility] [address] [place] [address] * (ABNORMAL) CBC WITH DIFFERENTIAL (06/19/2021 4:00 AM [facility]) WBC 9.3 4.4 - 10.7 x10E9/L 06/19/2021 10:20 AM [facility] WBC Corrected 06/19/2021 10:20 AM [facility] RBC 4.26 3.80 - 5.40 x10E12/L 06/19/2021 10:20 AM [facility] Hemoglobin 11.5(L) 12.0 - 17.6 gm/dL 06/19/2021 10:20 AM [facility] Hematocrit 37.1 35.2 - 51.7 % 06/19/2021 10:20 AM [facility] MCV 87.1 80.7 - 98.3 fl 06/19/2021 10:20 AM [facility] MCH 27.0 26.7 - 34.0 pg 06/19/2021 10:20 AM [facility] MCHC 31.0 30.8 - 35.9 gm/dL 06/19/2021 10:20 AM [facility] Platelet Count 492(H) 153 - 416 x10E9/L 06/19/2021 10:20 AM [facility] RDW-CV 12.6 12.1 - 14.9 % 06/19/2021 10:20 AM [facility] MPV 9.8 9.4 - 12.9 fl 06/19/2021 10:20 AM [facility] Neutrophils % 67.7 44.0 - 73.0 % 06/19/2021 10:20 AM [facility] Lymphocytes % 16.9(L) 20.0 - 43.0 % 06/19/2021 10:20 AM [facility] Monocytes % 10.4 5.0 - 13.0 % 06/19/2021 10:20 AM [facility] Eosinophils % 4.2 0.0 - 6.0 % 06/19/2021 10:20 AM [facility] Basophils % 0.5 0.0 - 2.0 % 06/19/2021 10:20 AM [facility] Immature Granulocytes 0.3 0 - 1 % 06/19/2021 10:20 AM [facility] Neutrophil Absolute 6.31 2.01 - 7.14 x10E9/L 06/19/2021 10:20 AM [facility] Lymphocytes Absolute 1.58 1.07 - 3.94 x10E9/L 06/19/2021 10:20 AM [facility] Monocytes Absolute 0.97 0.26 - 1.07 x10E9/L 06/19/2021 10:20 AM [facility] Eosinophils Absolute 0.39 0 - 0.47 x10E9/L 06/19/2021 10:20 AM [facility] Basophils Absolute 0.05 0 - 0.08 x10E9/L 06/19/2021 10:20 AM [facility] Immature Granulocytes Absolute 0.03 0.00 - 0.06 x10E9/L 06/19/2021 10:20 AM [facility] nRBC Auto 0 /100 WBC 06/19/2021 10:20 AM [facility] Blood BLOOD SPECIMEN / Unknown Venipuncture / Unknown 06/19/2021 4:00 AM CUSTOMER SERVICE COORDINATOR 06/19/2021 10:13 AM [facility] Vinicio Quintanilla MD LAB - HEMATOLOGY ORD ERABLES [facility] [address] [place] [address] documented in this encounter Visit Diagnoses Not on filedocumented in this encounter Care Teams Mold Checker Relationship Specialty Start Date End Date Pepe Martel MD [address] [place] [id number] PCP - General 08/14/16 documented as of this encounter
--- OUTSIDE RECORDS SUMMARY | 2024-08-23 06:07 | XMS_ITS | Encounter Summary ---
Author Organization [facility] Address [address] [place] [address] Care Team Providers Care Certified Massage Therapist Name Role Phone Pepe Martel MD Primary Care Provider [phone] Encounter Details Date Type Department Care Team (Late st Contact Info) Description 06/18/2021 Lab Requisition [facility] [address] [place] [address] Fredy Sue [address] [place] [address] Social History Tobacco Use Types Packs/Day [...] W AUTO DIFFERENTIAL STAT 06/18/2021 4:00 AM [facility] COMPREHENSIVE METABOLIC PANEL STAT 06/18/2021 4:00 AM [facility] documented in this encounter Results * (ABNORMAL) CBC WITH DIFFERENTIAL (06/18/2021 4:00 AM [facility]) WBC 9.9 4.4 - 10.7 x10E9/L 06/18/2021 9:25 AM [facility] WBC Corrected 06/18/2021 9:25 AM [facility] RBC 4.14 3.80 - 5.40 x10E12/L 06/18/2021 9:25 AM [facility] Hemoglobin 11.0(L) 12.0 - 17.6 gm/dL 06/18/2021 9:25 AM [facility] Hematocrit 35.8 35.2 - 51.7 % 06/18/2021 9:25 AM [facility] MCV 86.5 80.7 - 98.3 fl 06/18/2021 9:25 AM [facility] MCH 26.6(L) 26.7 - 34.0 pg 06/18/2021 9:25 AM [facility] MCHC 30.7(L) 30.8 - 35.9 gm/dL 06/18/2021 9:25 AM [facility] Platelet Count 463(H) 153 - 416 x10E9/L 06/18/2021 9:25 AM [facility] RDW-CV 12.4 12.1 - 14.9 % 06/18/2021 9:25 AM [facility] MPV 9.9 9.4 - 12.9 fl 06/18/2021 9:25 AM [facility] Neutrophils % 70.7 44.0 - 73.0 % 06/18/2021 9:25 AM [facility] Lymphocytes % 15.7(L) 20.0 - 43.0 % 06/18/2021 9:25 AM [facility] Monocytes % 9.5 5.0 - 13.0 % 06/18/2021 9:25 AM [facility] Eosinophils % 3.5 0.0 - 6.0 % 06/18/2021 9:25 AM [facility] Basophils % 0.3 0.0 - 2.0 % 06/18/2021 9:25 AM [facility] Immature Granulocytes 0.3 0 - 1 % 06/18/2021 9:25 AM [facility] Neutrophil Absolute 7.02 2.01 - 7.14 x10E9/L 06/18/2021 9:25 AM [facility] Lymphocytes Absolute 1.56 1.07 - 3.94 x10E9/L 06/18/2021 9:25 AM [facility] Monocytes Absolute 0.94 0.26 - 1.07 x10E9/L 06/18/2021 9:25 AM [facility] Eosinophils Absolute 0.35 0 - 0.47 x10E9/L 06/18/2021 9:25 AM [facility] Basophils Absolute 0.03 0 - 0.08 x10E9/L 06/18/2021 9:25 AM [facility] Immature Granulocytes Absolute 0.03 0.00 - 0.06 x10E9/L 06/18/2021 9:25 AM [facility] nRBC Auto 0 /100 WBC 06/18/2021 9:25 AM [facility] Blood BLOOD SPECIMEN / Unknown Venipuncture / Unknown 06/18/2021 4:[address] [facility] 06/18/2021 8:[address] [facility] rFedy Sue LAB - HEMATOLOGY ORD ERABLES [facility] [address] [place] [address] * (ABNORMAL) COMPREHENSIVE METABOLIC PANEL (06/18/2021 4:[address] [facility]) [facility] Glucose 116(H) 70 - 105 mg/dL 06/18/2021 9:40 AM [facility] Sodium 142 136 - 145 mmol/L 06/18/2021 9:40 AM [facility] Potassium 4.9 3.5 - 5.1 mmol/L 06/18/2021 9:40 AM [facility] Chloride 108(H) 98 - 107 mmol/L 06/18/2021 9:40 AM [facility] CO2 24 23 - 31 mmol/L 06/18/2021 9:40 AM [facility] Calcium 9.6 8.4 - 10.4 mg/dL 06/18/2021 9:40 AM [facility] Anion Gap 10 8 - 18 mmol/L 06/18/2021 9:40 AM [facility] BUN 34(H) 8.9 - 20.6 mg/dL 06/18/2021 9:40 AM [facility] Creatinine 1.09 0.72 - 1.25 mg/dL 06/18/2021 9:40 AM [facility] Alkaline Phosphatase 141 40 - 150 U/L 06/18/2021 9:40 AM [facility] ALT 43 0 - 61 U/L 06/18/2021 9:40 AM [facility] AST 22 5 - 34 U/L 06/18/2021 9:40 AM [facility] Protein Total 8.1 6.4 - 8.3 gm/dL 06/18/2021 9:40 AM [facility] Albumin 3.7 3.5 - 5.2 gm/dL 06/18/2021 9:40 AM [facility] Bilirubin Total 0.2 0.2 - 1.2 mg/dL 06/18/2021 9:40 AM [facility] eGFR by MDRD >60 >60 mL/min/1.7 3m2 06/18/2021 9:40 AM [facility] eGFR by MDRD >60 >60 mL/min/1.7 3m2 06/18/2021 9:40 AM [facility] Blood BLOOD SPECIMEN / Unknown Venipuncture / Unknown 06/18/2021 4:00 AM [facility] 06/18/2021 8:[address] [facility] Fredy Sue LAB - CHEMISTRY JOSE ENRIQUE VEL[facility] Organization Address City/State/ZIP Co de Phone Number [facility] [address] [place] [address] documented in this encounter Visit Diagnoses Not on filedocumented in this encounter Care Teams Certified Massage Therapist Relationship Specialty Start Date End Date Pepe Martel MD [address] [place] [id number] PCP - General 08/14/16 documented as of this encounter
--- OUTSIDE RECORDS SUMMARY | 2024-08-23 06:07 | XMS_ITS | Encounter Summary ---
Author Organization [facility] Address [address] [place] [address] Care Team Providers Care Schedule Hanger Name Role Phone Pepe Martel MD Primary Care Provider [phone] Encounter Details Date Type Department Care Team (Late st Contact Info) Description 07/28/2021 Lab Requisition [facility] [address] [place] [address] [place] [address] [place] [address] Social History Tobacco Use Types Packs/Day Years [...] - 43.0 % 07/28/2021 8:35 AM CDT [facility] Monocytes % 9.0 5.0 - 13.0 % 07/28/2021 8:35 AM CDT [facility] Eosinophils % 2.8 0.0 - 6.0 % 07/28/2021 8:35 AM CDT [facility] Basophils % 0.3 0.0 - 2.0 % 07/28/2021 8:35 AM CDT [facility] Immature Granulocytes 0.3 0 - 1 % 07/28/2021 8:35 AM CDT [facility] Neutrophil Absolute 7.62(H) 2.01 - 7.14 x10E9/L 07/28/2021 8:35 AM CDT [facility] Lymphocytes Absolute 2.19 1.07 - 3.94 x10E9/L 07/28/2021 8:35 AM CDT [facility] Monocytes Absolute 1.01 0.26 - 1.07 x10E9/L 07/28/2021 8:35 AM CDT [facility] Eosinophils Absolute 0.31 0 - 0.47 x10E9/L 07/28/2021 8:35 AM CDT [facility] Basophils Absolute 0.03 0 - 0.08 x10E9/L 07/28/2021 8:35 AM CDT [facility] Immature Granulocytes Absolute 0.03 0.00 - 0.06 x10E9/L 07/28/2021 8:35 AM CDT [facility] nRBC Auto 0 /100 WBC 07/28/2021 8:35 AM CDT [facility] Blood BLOOD SPECIMEN / Unknown Venipuncture / Unknown 07/28/2021 4:50 AM CDT 07/28/2021 8:27 AM CDT Vinicio Quintanilla MD LAB - HEMATOLOGY ORD ERABLES [facility] [address] [place] [address] * (ABNORMAL) COMPREHENSIVE METABOLIC PANEL (07/28/2021 4:50 AM CDT) [facility] Glucose 95 70 - 105 mg/dL 07/28/2021 8:59 AM CDT [facility] Sodium 145 136 - 145 mmol/L 07/28/2021 8:59 AM CDT [facility] Potassium 5.1 3.5 - 5.1 mmol/L 07/28/2021 8:59 AM CDT [facility] Chloride 105 98 - 107 mmol/L 07/28/2021 8:59 AM CDT [facility] CO2 28 23 - 31 mmol/L 07/28/2021 8:59 AM CDT [facility] Calcium 10.6(H) 8.4 - 10.4 mg/dL 07/28/2021 8:59 AM T [facility] Anion Gap 12 8 - 18 mmol/L 07/28/2021 8:59 AM T [facility] BUN 32(H) 8.9 - 20.6 mg/dL 07/28/2021 8:59 AM T [facility] Creatinine 0.97 0.72 - 1.25 mg/dL 07/28/2021 8:59 AM T [facility] Alkaline Phosphatase 196(H) 40 - 150 U/L 07/28/2021 8:59 AM CDT [facility] ALT 30 0 - 61 U/L 07/28/2021 8:59 AM T [facility] AST 15 5 - 34 U/L 07/28/2021 8:59 AM T [facility] Protein Total 8.2 6.4 - 8.3 gm/dL 07/28/2021 8:59 AM T [facility] Albumin 3.9 3.5 - 5.2 gm/dL 07/28/2021 8:59 AM T [facility] Bilirubin Total 0.5 0.2 - 1.2 mg/dL 07/28/2021 8:59 AM [facility] eGFR by CKD-EPI >90 >=90 mL/min/1.7 3 m2 07/28/2021 8:59 AM [facility] Blood BLOOD SPECIMEN / Unknown Venipuncture / Unknown 07/28/2021 4:50 AM CDT 07/28/2021 8:27 AM CDT Narrative [facility] - 07/28/2021 8:59 AM T eGFR result was calculated using the updated CKD-EPI Creatinine Equations (2020). Prior to go live 2021 the eGFR was calculated using the MDRD calculation. Please note Reference Range change. Vinicio Quintanilla MD LAB - CHEMISTRY JOSE ENRIQUE VELA [facility] Organization Address City/State/ZIP Co de Phone Number [facility] [address] [place] [address] documented in this encounter Visit Diagnoses Not on filedocumented in this encounter Care Teams Schedule Hanger Relationship Specialty Start Date End Date Pepe Martel MD [address] [place] [id number] PCP - General 08/14/16 documented as of this encounter
--- OUTSIDE RECORDS SUMMARY | 2024-08-23 06:07 | XMS_ITS | Encounter Summary ---
Author Organization [facility] Address [address] [place] [address] Care Team Providers Care Scrummaster Name Role Phone Pepe Martel MD Primary Care Provider [phone] Encounter Details Date Type Department Care Team (Late st Contact Info) Description 08/04/2021 Lab Requisition [facility] [address] [place] [address] [place] [address] [place] [address] Social History Tobacco Use Types Packs/Day Years [...] - 73.0 % 08/04/2021 9:06 AM CDT [facility] Lymphocytes % 18.5(L) 20.0 - 43.0 % 08/04/2021 9:06 AM CDT [facility] Monocytes % 6.9 5.0 - 13.0 % 08/04/2021 9:06 AM CDT [facility] Eosinophils % 6.9(H) 0.0 - 6.0 % 08/04/2021 9:06 AM CDT [facility] Basophils % 0.5 0.0 - 2.0 % 08/04/2021 9:06 AM CDT [facility] Immature Granulocytes 0.3 0 - 1 % 08/04/2021 9:06 AM CDT [facility] Neutrophil Absolute 5.90 2.01 - 7.14 x10E9/L 08/04/2021 9:06 AM CDT [facility] Lymphocytes Absolute 1.63 1.07 - 3.94 x10E9/L 08/04/2021 9:06 AM CDT [facility] Monocytes Absolute 0.61 0.26 - 1.07 x10E9/L 08/04/2021 9:06 AM T [facility] Eosinophils Absolute 0.61(H) 0 - 0.47 x10E9/L 08/04/2021 9:06 AM T [facility] Basophils Absolute 0.04 0 - 0.08 x10E9/L 08/04/2021 9:06 AM T [facility] Immature Granulocytes Absolute 0.03 0.00 - 0.06 x10E9/L 08/04/2021 9:06 AM T [facility] nRBC Auto 0 /100 WBC 08/04/2021 9:06 AM T [facility] Blood BLOOD SPECIMEN / Unknown Venipuncture / Unknown 08/04/2021 5:17 AM CDT 08/04/2021 8:45 AM CDT Vinicio Quintanilla MD LAB - HEMATOLOGY ORD ERABLES [facility] [address] [place] [address] * VANCOMYCIN LEVEL TROUGH (08/04/2021 5:17 AM CDT) Vancomycin Trough 18.6 10.0 - 20.0 ug/mL 08/04/2021 9:28 AM [facility] Blood BLOOD SPECIMEN / Unknown Venipuncture / Unknown 08/04/2021 5:17 AM CDT 08/04/2021 8:45 AM CDT Vinicio Quintanilla MD LAB - CHEMISTRY JOSE ENRIQUE VELA [facility] Organization Address City/State/ZIP Co de Phone Number [facility] [address] [place] [address] * (ABNORMAL) COMPREHENSIVE METABOLIC PANEL (08/04/2021 5:17 AM CDT) Glucose 123(H) 70 - 105 mg/dL [facility]/04[facility]2021 9[facility] Sodium 148(H) 136 - 145 mmol/L 08/04/2021 9:37 AM [facility] Potassium 4.7 3.5 - 5.1 mmol/L 08/04/2021 9:37 AM [facility] Chloride 111(H) 98 - 107 mmol/L 08/04/2021 9:37 AM CDT [facility] CO2 23 23 - 31 mmol/L 08/04/2021 9:37 AM CDT [facility] Calcium 9.7 8.4 - 10.4 mg/dL 08/04/2021 9:37 AM [facility] Anion Gap 14 8 - 18 mmol/L 08/04/2021 9:37 [facility] BUN 24(H) 8.9 - 20.6 mg/dL 08/04/2021 9:37 AM T [facility] Creatinine 0.90 0.72 - 1.25 mg/dL 08/04/2021 9:37 AM [facility] Alkaline Phosphatase 119 40 - 150 U/L 08/04/2021 9:37 AM CDT [facility] ALT 18 0 - 61 U/L 08/04/2021 9:37 AM CDT [facility] AST 14 5 - 34 [...] VELA [facility] Organization Address City/State/[facility] Co de Phone Number [facility] [address] [place], [place] [id number] documented in this encounter Visit Diagnoses Not on filedocumented in this encounter Care Teams Scrummaster Relationship Specialty Start Date End Date Pepe Martel MD [address] [place] [address] [address] [place] [address] PCP - General 08/14/16 documented as of this encounter
--- OUTSIDE RECORDS SUMMARY | 2024-08-23 06:07 | XMS_ITS | Encounter Summary ---
Author Organization [facility] Address [address] [address] Care Team Providers Care Gusset Stitcher Name Role Phone Pepe Martel MD Primary Care Provider [phone] Encounter Details Date Type Department Care Team (Late st Contact Info) Description 07/10/2021 Lab Requisition [facility] [address] [place] [address] [place] [address] [place] [address] Social History Tobacco Use Types Packs/Day Years [...] W AUTO DIFFERENTIAL STAT 07/10/2021 2:43 AM CONSULTING PRACTICE DIRECTOR COMPREHENSIVE METABOLIC PANEL STAT 07/10/2021 2:43 AM CONSULTING PRACTICE DIRECTOR documented in this encounter Results * (ABNORMAL) COMPREHENSIVE METABOLIC PANEL (07/10/2021 2:43 AM CONSULTING PRACTICE DIRECTOR) Glucose 98 70 - 105 mg/dL 07/10/2021 11:[address] [facility] Sodium 140 136 - 145 mmol/L 07/10/2021 11:05 AM [facility] Potassium 5.2(H) 3.5 - 5.1 mmol/L 07/10/2021 11:05 AM [facility] Chloride 102 98 - 107 mmol/L 07/10/2021 11:05 AM [facility] CO2 24 23 - 31 mmol/L 07/10/2021 11:05 AM [facility] Calcium 9.9 8.4 - 10.4 mg/dL 07/10/2021 11:05 AM [facility] Anion Gap 14 8 - 18 mmol/L 07/10/2021 11:05 AM [facility] BUN 29(H) 8.9 - 20.6 mg/dL 07/10/2021 11:05 AM [facility] Creatinine 0.85 0.72 - 1.25 mg/dL 07/10/2021 11:05 AM [facility] Alkaline Phosphatase 135 40 - 150 U/L 07/10/2021 11:05 AM [facility] ALT 32 0 - 61 U/L 07/10/2021 11:05 AM [facility] AST 17 5 - 34 U/L 07/10/2021 11:05 AM [facility] Protein Total 7.7 6.4 - 8.3 gm/dL 07/10/2021 11:05 AM [facility] Albumin 3.8 3.5 - 5.2 gm/dL 07/10/2021 11:05 AM [facility] Bilirubin Total 0.3 0.2 - 1.2 mg/dL 07/10/2021 11:05 AM [facility] eGFR by MDRD >60 >60 mL/min/1.7 3m2 07/10/2021 11:05 AM [facility] eGFR by MDRD >60 >60 mL/min/1.7 3m2 07/10/2021 11:05 AM [facility] Blood BLOOD SPECIMEN / Unknown Venipuncture / Unknown 07/10/2021 2:43 AM CONSULTING PRACTICE DIRECTOR 07/10/2021 10:14 AM CONSULTING PRACTICE DIRECTOR Vinicio Quintanilla MD LAB - CHEMISTRY ORDE [facility] Organization Address City/State/ZIP Co de Phone Number [facility] [address] [place] [address] * (ABNORMAL) CBC WITH DIFFERENTIAL (07/10/2021 2:[address] [facility]) WBC 10.4 4.4 - 10.7 x10E9/L 07/10/2021 10:41 AM [facility] WBC Corrected 07/10/2021 10:41 AM [facility] RBC 4.35 3.80 - 5.40 x10E12/L 07/10/2021 10:41 AM [facility] Hemoglobin 11.4(L) 12.0 - 17.6 gm/dL 07/10/2021 10:41 AM [facility] Hematocrit 36.3 35.2 - 51.7 % 07/10/2021 10:41 AM [facility] MCV 83.4 80.7 - 98.3 fl 07/10/2021 10:41 AM [facility] MCH 26.2(L) 26.7 - 34.0 pg 07/10/2021 10:41 AM [facility] MCHC 31.4 30.8 - 35.9 gm/dL 07/10/2021 10:41 AM [facility] Platelet Count 421(H) 153 - 416 x10E9/L 07/10/2021 10:41 AM [facility] RDW-CV 13.2 12.1 - 14.9 % 07/10/2021 10:41 AM [facility] MPV 10.5 9.4 - 12.9 fl 07/10/2021 10:41 AM [facility] Neutrophils % 66.2 44.0 - 73.0 % 07/10/2021 10:41 AM [facility] Lymphocytes % 19.7(L) 20.0 - 43.0 % 07/10/2021 10:41 AM [facility] Monocytes % 9.5 5.0 - 13.0 % 07/10/2021 10:41 AM [facility] Eosinophils % 3.9 0.0 - 6.0 % 07/10/2021 10:41 AM [facility] Basophils % 0.3 0.0 - 2.0 % 07/10/2021 10:41 AM [facility] Immature Granulocytes 0.4 0 - 1 % 07/10/2021 10:41 AM [facility] Neutrophil Absolute 6.89 2.01 - 7.14 x10E9/L 07/10/2021 10:41 AM [facility] Lymphocytes Absolute 2.05 1.07 - 3.94 x10E9/L 07/10/2021 10:41 AM [facility] Monocytes Absolute 0.99 0.26 - 1.07 x10E9/L 07/10/2021 10:41 AM [facility] Eosinophils Absolute 0.41 0 - 0.47 x10E9/L 07/10/2021 10:41 AM [facility] Basophils Absolute 0.03 0 - 0.08 x10E9/L 07/10/2021 10:41 AM [facility] Immature Granulocytes Absolute 0.04 0.00 - 0.06 x10E9/L 07/10/2021 10:41 AM [facility] nRBC Auto 0 /100 WBC 07/10/2021 10:41 AM [facility] Blood BLOOD SPECIMEN / Unknown Venipuncture / Unknown 07/10/2021 2:43 AM CONSULTING PRACTICE DIRECTOR 07/10/2021 10:14 AM CONSULTING PRACTICE DIRECTOR Vinicio Quintanilla MD LAB - HEMATOLOGY ORD ERABLES [facility] [address] [place] [address] documented in this encounter Visit Diagnoses Not on filedocumented in this encounter Care Teams Gusset Stitcher Relationship Specialty Start Date End Date Pepe Martel MD [address] [place] [id number] PCP - General 08/14/16 documented as of this encounter
--- OUTSIDE RECORDS SUMMARY | 2024-08-23 06:07 | XMS_ITS | Encounter Summary ---
Author Organization [facility] Address [address] [place] [address] Care Team Providers Care Interlibrary Loan Specialist Name Role Phone Pepe Martel MD Primary Care Provider [phone] Encounter Details Date Type Department Care Team (Late st Contact Info) Description 08/11/2021 Lab Requisition [facility] [address] [place] [address] [place] [address] [place] [address] Social History Tobacco Use Types Packs/Day Years [...] - 43.0 % 08/11/2021 9:36 AM CDT [facility] Monocytes % 8.6 5.0 - 13.0 % 08/11/2021 9:36 AM CDT [facility] Eosinophils % 2.4 0.0 - 6.0 % 08/11/2021 9:36 AM CDT [facility] Basophils % 0.3 0.0 - 2.0 % 08/11/2021 9:36 AM CDT [facility] Immature Granulocytes 0.5 0 - 1 % 08/11/2021 9:36 AM CDT [facility] Neutrophil Absolute 5.52 2.01 - 7.14 x10E9/L 08/11/2021 9:36 AM CDT [facility] Lymphocytes Absolute 2.05 1.07 - 3.94 x10E9/L 08/11/2021 9:36 AM CDT [facility] Monocytes Absolute 0.74 0.26 - 1.07 x10E9/L 08/11/2021 9:36 AM CDT [facility] Eosinophils Absolute 0.21 0 - 0.47 x10E9/L 08/11/2021 9:36 AM CDT [facility] Basophils Absolute 0.03 0 - 0.08 x10E9/L 08/11/2021 9:36 AM CDT [facility] Immature Granulocytes Absolute 0.04 0.00 - 0.06 x10E9/L 08/11/2021 9:36 AM CDT [facility] nRBC Auto 0 /100 WBC 08/11/2021 9:36 AM T [facility] Blood BLOOD SPECIMEN / Unknown Venipuncture / Unknown 08/11/2021 5:24 AM CDT 08/11/2021 9:25 AM CDT Vinicio Quintanilla MD LAB - HEMATOLOGY ORD ERABLES [facility] [address] [place] [address] * (ABNORMAL) COMPREHENSIVE METABOLIC PANEL (08/11/2021 5:24 AM CDT) [facility] Glucose 111(H) 70 - 105 mg/dL 08/11/2021 10:02 AM [facility] Sodium 141 136 - 145 mmol/L 08/11/2021 10:02 AM [facility] Potassium 5.0 3.5 - 5.1 mmol/L 08/11/2021 10:02 AM [facility] Chloride 104 98 - 107 mmol/L 08/11/2021 10:02 AM [facility] CO2 25 23 - 31 mmol/L 08/11/2021 10:02 AM [facility] Calcium 10.0 8.4 - 10.4 mg/dL 08/11/2021 10:02 AM [facility] Anion Gap 12 8 - 18 mmol/L 08/11/2021 10:02 AM [facility] BUN 28(H) 8.9 - 20.6 mg/dL 08/11/2021 10:02 AM [facility] Creatinine 0.77 0.72 - 1.25 mg/dL 08/11/2021 10:02 AM [facility] Alkaline Phosphatase 117 40 - 150 U/L 08/11/2021 10:02 AM [facility] ALT 16 0 - 61 U/L 08/11/2021 10:02 AM [facility] AST 11 5 - 34 U/L 08/11/2021 10:02 AM [facility] Protein Total 7.1 6.4 - 8.3 gm/dL 08/11/2021 10:02 AM [facility] Albumin 3.4(L) 3.5 - 5.2 gm/dL 08/11/2021 10:02 AM [facility] Bilirubin Total 0.3 0.2 - 1.2 mg/dL 08/11/2021 10:02 AM [facility] eGFR by CKD-EPI >90 >=90 mL/min/1.7 3 m2 08/11/2021 10:02 AM [facility] Blood BLOOD SPECIMEN / Unknown Venipuncture / Unknown 08/11/2021 5:24 AM CDT 08/11/2021 9:[address] [facility] - 08/11/2021 10:02 AM [facility] eGFR result was calculated using the updated CKD-EPI Creatinine Equations (2020). Prior to go live 2021 the eGFR was calculated using the MDRD calculation. Please note Reference Range change. Vinicio Quintanilla MD LAB - CHEMISTRY JOSE ENRIQUE VELA [facility] Organization Address City/State/ZIP Co de Phone Number [facility] [address] [place] [address] documented in this encounter Visit Diagnoses Not on filedocumented in this encounter Care Teams Interlibrary Loan Specialist Relationship Specialty Start Date End Date Pepe Martel MD [address] [place] [id number] PCP - General 08/14/16 documented as of this encounter
--- OUTSIDE RECORDS SUMMARY | 2024-08-23 06:07 | XMS_ITS | Encounter Summary ---
Author Organization [facility] Address [address] [place] [address] Care Team Providers Care Marketing Community Liaison Name Role Phone Pepe Martel MD Primary Care Provider [phone] Encounter Details Date Type Department Care Team (Late st Contact Info) Description 06/26/2021 Lab Requisition [facility] [address] [place] [address] [place] [address] [place] [address] Social History Tobacco Use Types Packs/Day Years [...] W AUTO DIFFERENTIAL STAT 06/26/2021 5:22 AM CLINICAL APPEALS AUDITOR COMPREHENSIVE METABOLIC PANEL STAT 06/26/2021 5:22 AM CLINICAL APPEALS AUDITOR documented in this encounter Results * (ABNORMAL) CBC WITH DIFFERENTIAL (06/26/2021 5:22 AM CLINICAL APPEALS AUDITOR) WBC 8.0 4.4 - 10.7 x10E9/L 06/26/2021 9:25 AM CLINICAL APPEALS AUDITOR [facility] WBC Corrected 06/26/2021 9:25 AM CLINICAL APPEALS AUDITOR [facility] RBC 4.11 3.80 - 5.40 x10E12/L 06/26/2021 9:25 AM CLINICAL APPEALS AUDITOR [facility] Hemoglobin 11.0(L) 12.0 - 17.6 gm/dL 06/26/2021 9:25 AM CLINICAL APPEALS AUDITOR [facility] Hematocrit 35.3 35.2 - 51.7 % 06/26/2021 9:25 AM CLINICAL APPEALS AUDITOR [facility] MCV 85.9 80.7 - 98.3 fl 06/26/2021 9:25 AM CLINICAL APPEALS AUDITOR [facility] MCH 26.8 26.7 - 34.0 pg 06/26/2021 9:25 AM CLINICAL APPEALS AUDITOR [facility] MCHC 31.2 30.8 - 35.9 gm/dL 06/26/2021 9:25 AM CLINICAL APPEALS AUDITOR [facility] Platelet Count 402 153 - 416 x10E9/L 06/26/2021 9:25 AM CLINICAL APPEALS AUDITOR SM [facility] RDW-CV 12.8 12.1 - 14.9 % 06/26/2021 9:25 AM CLINICAL APPEALS AUDITOR [facility] MPV 10.2 9.4 - 12.9 fl 06/26/2021 9:25 AM CLINICAL APPEALS AUDITOR [facility] Neutrophils % 61.5 44.0 - 73.0 % 06/26/2021 9:25 AM CLINICAL APPEALS AUDITOR [facility] Lymphocytes % 22.2 20.0 - 43.0 % 06/26/2021 9:25 AM CLINICAL APPEALS AUDITOR [facility] Monocytes % 9.6 5.0 - 13.0 % 06/26/2021 9:25 AM [facility] Eosinophils % 6.0 0.0 - 6.0 % 06/26/2021 9:25 AM [facility] Basophils % 0.4 0.0 - 2.0 % 06/26/2021 9:25 AM [facility] Immature Granulocytes 0.3 0 - 1 % 06/26/2021 9:25 AM [facility] Neutrophil Absolute 4.92 2.01 - 7.14 x10E9/L 06/26/2021 9:25 AM [facility] Lymphocytes Absolute 1.77 1.07 - 3.94 x10E9/L 06/26/2021 9:25 AM [facility] Monocytes Absolute 0.77 0.26 - 1.07 x10E9/L 06/26/2021 9:25 AM [facility] Eosinophils Absolute 0.48(H) 0 - 0.47 x10E9/L 06/26/2021 9:25 AM [facility] Basophils Absolute 0.03 0 - 0.08 x10E9/L 06/26/2021 9:25 AM [facility] Immature Granulocytes Absolute 0.02 0.00 - 0.06 x10E9/L 06/26/2021 9:25 AM [facility] nRBC Auto 0 /100 WBC 06/26/2021 9:25 AM [facility] Blood BLOOD SPECIMEN / Unknown Venipuncture / Unknown 06/26/2021 5:22 AM [facility] 06/26/2021 9:06 AM [facility] Vinicio Quintanilla MD LAB - HEMATOLOGY ORD ERABLES [facility] [address] [place] [address] * (ABNORMAL) COMPREHENSIVE METABOLIC PANEL (06/26/2021 5:22 AM [facility]) Glucose 118(H) 70 - 105 mg/dL 06/26/2021 9:55 AM [facility] Sodium 143 136 - 145 mmol/L 06/26/2021 9:55 AM [facility] Potassium 4.5 3.5 - 5.1 mmol/L 06/26/2021 9:55 AM [facility] Chloride 103 98 - 107 mmol/L 06/26/2021 9:55 AM [facility] CO2 29 23 - 31 mmol/L 06/26/2021 9:55 AM [facility] Calcium 9.7 8.4 - 10.4 mg/dL 06/26/2021 9:55 AM [facility] Anion Gap 11 8 - 18 mmol/L 06/26/2021 9:55 AM [facility] BUN 35(H) 8.9 - 20.6 mg/dL 06/26/2021 9:55 AM [facility] Creatinine 1.00 0.72 - 1.25 mg/dL 06/26/2021 9:55 AM [facility] Alkaline Phosphatase 131 40 - 150 U/L 06/26/2021 9:55 AM [facility] ALT 39 0 - 61 U/L 06/26/2021 9:55 AM [facility] AST 20 5 - 34 U/L 06/26/2021 9:55 AM [facility] Protein Total 7.7 6.4 - 8.3 gm/dL 06/26/2021 9:55 AM [facility] Albumin 3.7 3.5 - 5.2 gm/dL 06/26/2021 9:55 AM [facility] Bilirubin Total 0.2 0.2 - 1.2 mg/dL 06/26/2021 9:55 AM [facility] eGFR by MDRD >60 >60 mL/min/1.7 3m2 06/26/2021 9:55 AM [facility] eGFR by MDRD >60 >60 mL/min/1.7 3m2 06/26/2021 9:55 AM [facility] Blood BLOOD SPECIMEN / Unknown Venipuncture / Unknown 06/26/2021 5:22 AM CLINICAL APPEALS AUDITOR 06/26/2021 9:06 AM CLINICAL APPEALS AUDITOR Vinicio Quintanilla MD LAB - CHEMISTRY JOSE ENRIQUE VELA [facility] Organization Address City/State/ZIP Co de Phone Number [facility] [address] [place], [place] [phone] documented in this encounter Visit Diagnoses Not on filedocumented in this encounter Care Teams Marketing Community Liaison Relationship Specialty Start Date End Date Pepe Martel MD [address] [address] [address] [address] [place] [address] PCP - General 08/14/16 documented as of this encounter
--- OUTSIDE RECORDS SUMMARY | 2024-08-23 06:07 | XMS_ITS | Encounter Summary ---
Author Organization [facility] Address [address] [address] Care Team Providers Care Viscose Department Worker Name Role Phone Pepe Martel MD Primary Care Provider [phone] Encounter Details Date Type Department Care Team (Late st Contact Info) Description 07/21/2021 Lab Requisition [facility] [address] [place] [address] [place] [address] [place] [address] Social History Tobacco Use Types Packs/Day Years [...] W AUTO DIFFERENTIAL STAT 07/21/2021 2:45 AM GIVER COMPREHENSIVE METABOLIC PANEL STAT 07/21/2021 2:45 AM GIVER documented in this encounter Results * (ABNORMAL) CBC WITH DIFFERENTIAL (07/21/2021 2:45 AM GIVER) WBC 10.4 4.4 - 10.7 x10E9/L 07/21/2021 9:17 AM GIVER [facility] WBC Corrected 07/21/2021 9:17 AM GIVER [facility] RBC 4.51 3.80 - 5.40 x10E12/L 07/21/2021 9:17 AM GIVER [facility] Hemoglobin 11.4(L) 12.0 - 17.6 gm/dL 07/21/2021 9:17 AM GIVER [facility] Hematocrit 37.4 35.2 - 51.7 % 07/21/2021 9:17 AM GIVER [facility] MCV 82.9 80.7 - 98.3 fl 07/21/2021 9:17 AM GIVER [facility] MCH 25.3(L) 26.7 - 34.0 pg 07/21/2021 9:17 AM GIVER [facility] MCHC 30.5(L) 30.8 - 35.9 gm/dL 07/21/2021 9:17 AM GIVER [facility] Platelet Count 531(H) 153 - 416 x10E9/L 07/21/2021 9:17 AM GIVER [facility] RDW-CV 13.9 12.1 - 14.9 % 07/21/2021 9:17 AM GIVER [facility] MPV 9.4 9.4 - 12.9 fl 07/21/2021 9:17 AM GIVER [facility] Neutrophils % 65.4 44.0 - 73.0 % 07/21/2021 9:17 AM GIVER [facility] Lymphocytes % 20.4 20.0 - 43.0 % 07/21/2021 9:17 AM GIVER [facility] Monocytes % 10.2 5.0 - 13.0 % 07/21/2021 9:17 AM [facility] Eosinophils % 3.1 0.0 - 6.0 % 07/21/2021 9:17 AM [facility] Basophils % 0.4 0.0 - 2.0 % 07/21/2021 9:17 AM [facility] Immature Granulocytes 0.5 0 - 1 % 07/21/2021 9:17 AM [facility] Neutrophil Absolute 6.83 2.01 - 7.14 x10E9/L 07/21/2021 9:17 AM [facility] Lymphocytes Absolute 2.13 1.07 - 3.94 x10E9/L 07/21/2021 9:17 AM [facility] Monocytes Absolute 1.07 0.26 - 1.07 x10E9/L 07/21/2021 9:17 AM [facility] Eosinophils Absolute 0.32 0 - 0.47 x10E9/L 07/21/2021 9:17 AM [facility] Basophils Absolute 0.04 0 - 0.08 x10E9/L 07/21/2021 9:17 AM [facility] Immature Granulocytes Absolute 0.05 0.00 - 0.06 x10E9/L 07/21/2021 9:17 AM [facility] nRBC Auto 0 /100 WBC 07/21/2021 9:17 AM [facility] Blood BLOOD SPECIMEN / Unknown Venipuncture / Unknown 07/21/2021 2:45 AM GIVER 07/21/2021 9:01 AM [facility] Vinicio Quintanilla MD LAB - HEMATOLOGY ORD ERABLES [facility] [address] [place] [address] * (ABNORMAL) COMPREHENSIVE METABOLIC PANEL (07/21/2021 2:45 AM [facility]) [facility] Glucose 87 70 - 105 mg/dL 07/21/2021 9:28 AM [facility] Sodium 140 136 - 145 mmol/L 07/21/2021 9:28 AM [facility] Potassium 5.4(H) 3.5 - 5.1 mmol/L 07/21/2021 9:28 AM [facility] Chloride 102 98 - 107 mmol/L 07/21/2021 9:28 AM [facility] CO2 24 23 - 31 mmol/L 07/21/2021 9:28 AM [facility] Calcium 10.1 8.4 - 10.4 mg/dL 07/21/2021 9:28 AM [facility] Anion Gap 14 8 - 18 mmol/L 07/21/2021 9:28 AM [facility] BUN 31(H) 8.9 - 20.6 mg/dL 07/21/2021 9:28 AM [facility] Creatinine 1.04 0.72 - 1.25 mg/dL 07/21/2021 9:28 AM [facility] Alkaline Phosphatase 193(H) 40 - 150 U/L 07/21/2021 9:28 AM [facility] ALT 35 0 - 61 U/L 07/21/2021 9:28 AM [facility] AST 19 5 - 34 U/L 07/21/2021 9:28 AM [facility] Protein Total 8.0 6.4 - 8.3 gm/dL 07/21/2021 9:28 AM [facility] Albumin 3.8 3.5 - 5.2 gm/dL 07/21/2021 9:28 AM [facility] Bilirubin Total 0.3 0.2 - 1.2 mg/dL 07/21/2021 9:28 AM [facility] eGFR by CKD-EPI >90 >=90 mL/min/1.7 3 m2 07/21/2021 9:28 AM [facility] Blood BLOOD SPECIMEN / Unknown Venipuncture / Unknown 07/21/2021 2:45 AM GIVER 07/21/2021 9:01 AM [facility]AT[facility] - 07/21/2021 9:28 AM [facility] eGFR result was calculated using the updated CKD-EPI Creatinine Equations (2020). Prior to go live 2021 the eGFR was calculated using the MDRD calculation. Please note Reference Range change. Vinicio Quintanilla MD [facility] Organization Address City/State/ZIP Co de Phone Number [facility] [address] [place] [address] documented in this encounter Visit Diagnoses Not on filedocumented in this encounter Care Teams Viscose Department Worker Relationship Specialty Start Date End Date Pepe Martel MD [address] [place] [address] [address] [place] [address] PCP - General 08/14/16 documented as of this encounter
--- OUTSIDE RECORDS SUMMARY | 2024-08-23 06:07 | XMS_ITS | Encounter Summary ---
Author Organization [facility] Address [address] [place] [address] Care Team Providers Care Community Director Name Role Phone Pepe Martel MD Primary Care Provider [phone] Encounter Details Date Type Department Care Team (Late st Contact Info) Description 07/31/2021 Lab Requisition [facility] [address] [place] [address] [place] [address] [place] [address] Social History Tobacco Use Types Packs/Day Years [...] - 43.0 % 07/31/2021 9:10 AM CDT [facility] Monocytes % 8.8 5.0 - 13.0 % 07/31/2021 9:10 AM CDT [facility] Eosinophils % 7.2(H) 0.0 - 6.0 % 07/31/2021 9:10 AM CDT [facility] Basophils % 0.6 0.0 - 2.0 % 07/31/2021 9:10 AM CDT [facility] Immature Granulocytes 0.3 0 - 1 % 07/31/2021 9:10 AM CDT [facility] Neutrophil Absolute 6.48 2.01 - 7.14 x10E9/L 07/31/2021 9:10 AM CDT [facility] Lymphocytes Absolute 1.07 1.07 - 3.94 x10E9/L 07/31/2021 9:10 AM CDT [facility] Monocytes Absolute 0.80 0.26 - 1.07 x10E9/L 07/31/2021 9:10 AM CDT [facility] Eosinophils Absolute 0.65(H) 0 - 0.47 x10E9/L 07/31/2021 9:10 AM CDT [facility] Basophils Absolute 0.05 0 - 0.08 x10E9/L 07/31/2021 9:10 AM CDT [facility] Immature Granulocytes Absolute 0.03 0.00 - 0.06 x10E9/L 07/31/2021 9:10 AM CDT [facility] nRBC Auto 0 /100 WBC 07/31/2021 9:10 AM CDT [facility] Blood BLOOD SPECIMEN / Unknown Venipuncture / Unknown 07/31/2021 2:50 AM CDT 07/31/2021 8:26 AM CDT Vinicio Quintanilla MD LAB - HEMATOLOGY ORD ERABLES [facility] [address] [place] [address] * (ABNORMAL) COMPREHENSIVE METABOLIC PANEL (07/31/2021 2:50 AM CDT) Glucose 138(H) 70 - 105 mg/dL 07/31/2021 8:59 AM CDT [facility] Sodium 145 136 - 145 mmol/L 07/31/2021 8:59 AM CDT [facility] Potassium 4.6 3.5 - 5.1 mmol/L 07/31/2021 8:59 AM CDT [facility] Chloride 108(H) 98 - 107 mmol/L 07/31/2021 8:59 AM CDT [facility] CO2 23 23 - 31 mmol/L 07/31/2021 8:59 AM CDT [facility] Calcium 9.8 8.4 - 10.4 mg/dL 07/31/2021 8:59 AM CDT [facility] Anion Gap 14 8 - 18 mmol/L 07/31/2021 8:59 AM CDT [facility] BUN 33(H) 8.9 - 20.6 mg/dL 07/31/2021 8:59 AM CDT [facility] Creatinine 1.17 0.72 - 1.25 mg/dL 07/31/2021 8:59 AM CDT [facility] Alkaline Phosphatase 155(H) 40 - 150 U/L 07/31/2021 8:59 AM CDT [facility] ALT 26 0 - 61 U/L 07/31/2021 8:59 AM CDT [facility] AST 14 5 - 34 U/L 07/31/2021 8:59 AM CDT [facility] Protein Total 7.3 6.4 - 8.3 gm/dL 07/31/2021 8:59 AM CDT [facility] Albumin 3.4(L) 3.5 - 5.2 gm/dL 07/31/2021 8:59 AM CDT [facility] Bilirubin Total 0.3 0.2 - 1.2 mg/dL 07/31/2021 8:59 AM CDT [facility] eGFR by CKD-EPI 83(L) >=90 mL/min/1.7 3 m2 07/31/2021 8:59 AM T [facility] Blood BLOOD SPECIMEN / Unknown Venipuncture / Unknown 07/31/2021 2:50 AM CDT 07/31/2021 8:26 AM CDT Narrative [facility] - 07/31/2021 8:59 AM CDT eGFR result was calculated using the updated CKD-EPI Creatinine Equations (2020). Prior to go live 2021 the eGFR was calculated using the MDRD calculation. Please note Reference Range change. Vinicio Quintanilla MD LAB - CHEMISTRY JOSE ENRIQUE VELA [facility] Organization Address City/State/ZIP Co de Phone Number [facility] [address] [place] [address] documented in this encounter Visit Diagnoses Not on filedocumented in this encounter Care Teams Community Director Relationship Specialty Start Date End Date Pepe Martel MD [address] [place] [address] [phone] PCP - General 08/14/16 documented as of this encounter
--- OUTSIDE RECORDS SUMMARY | 2024-08-23 06:07 | XMS_ITS | Encounter Summary ---
Author Organization [facility] Address [address] [facility] [place] [address] Care Team Providers Care Associate Professor Of Sociology Name Role Phone Pepe Martel MD Primary Care Provider [phone] Encounter Details Date Type Department Care Team (Late st Contact Info) Description 07/03/2021 Lab Requisition [facility] [address] [place] [address] [place] [address] [place] [address] Social History Tobacco Use Types Packs/Day Years [...] SLIDE SCAN HEMATOLOGY Routine 07/03/2021 4:24 AM [facility] INTERN CBC W AUTO DIFFERENTIAL STAT 07/03/2021 4:24 AM [facility] INTERN COMPREHENSIVE METABOLIC PANEL STAT 07/03/2021 4:24 AM [facility] INTERN documented in this encounter Results * (ABNORMAL) SLIDE SCAN HEMATOLOGY (07/03/2021 4:24 AM [facility] INTERN) Clumped Platelets 1+(A) None 07/03/2021 10:54 AM [facility] INTERN [facility] Blood BLOOD SPECIMEN / Unknown Venipuncture / Unknown 07/03/2021 4:24 AM [facility] INTERN 07/03/2021 10:11 AM [facility] INTERN Vinicio Quintanilla MD LAB - HEMATOLOGY ORD ERABLES Performing Organization Address City/State/RUST Co de Phone Number [facility] [address] [place] [address] * (ABNORMAL) CBC WITH DIFFERENTIAL (07/03/2021 4:24 AM [facility]BA INTERN) WBC 10.6 4.4 - 10.7 x10E9/L 07/03/2021 10:40 AM [facility] INTERN [facility] WBC Corrected 07/03/2021 10:40 AM [facility] INTERN [facility] RBC 4.32 3.80 - 5.40 x10E12/L 07/03/2021 10:40 AM [facility] INTERN [facility] Hemoglobin 11.1(L) 12.0 - 17.6 gm/dL 07/03/2021 10:40 AM [facility] INTERN [facility] Hematocrit 36.5 35.2 - 51.7 % 07/03/2021 10:40 AM M[facility] INTERN [facility] MCV 84.5 80.7 - 98.3 fl 07/03/2021 10:40 AM MBA INTERN [facility] MCH 25.7(L) 26.7 - 34.0 pg 07/03/2021 10:40 AM [facility] MCHC 30.4(L) 30.8 - 35.9 gm/dL 07/03/2021 10:40 AM [facility] Platelet Count 303 153 - 416 x10E9/L 07/03/2021 10:40 AM [facility] RDW-CV 13.1 12.1 - 14.9 % 07/03/2021 10:40 AM [facility] MPV 10.3 9.4 - 12.9 fl 07/03/2021 10:40 AM [facility] Neutrophils % 68.5 44.0 - 73.0 % 07/03/2021 10:40 AM [facility] Lymphocytes % 18.9(L) 20.0 - 43.0 % 07/03/2021 10:40 AM [facility] Monocytes % 8.2 5.0 - 13.0 % 07/03/2021 10:40 AM [facility] Eosinophils % 3.6 0.0 - 6.0 % 07/03/2021 10:40 AM [facility] Basophils % 0.4 0.0 - 2.0 % 07/03/2021 10:40 AM [facility] Immature Granulocytes 0.4 0 - 1 % 07/03/2021 10:40 AM [facility] Neutrophil Absolute 7.23(H) 2.01 - 7.14 x10E9/L 07/03/2021 10:40 AM [facility] Lymphocytes Absolute 1.99 1.07 - 3.94 x10E9/L 07/03/2021 10:40 AM [facility] Monocytes Absolute 0.87 0.26 - 1.07 x10E9/L 07/03/2021 10:40 AM [facility] Eosinophils Absolute 0.38 0 - 0.47 x10E9/L 07/03/2021 10:40 AM [facility] Basophils Absolute 0.04 0 - 0.08 x10E9/L 07/03/2021 10:40 AM [facility] Immature Granulocytes Absolute 0.04 0.00 - 0.06 x10E9/L 07/03/2021 10:40 AM [facility] nRBC Auto 0 /100 WBC 07/03/2021 10:40 AM [facility] Blood BLOOD SPECIMEN / Unknown Venipuncture / Unknown 07/03/2021 4:24 AM MBA INTERN 07/03/2021 10:11 AM [facility] Vinicio Quintanilla MD LAB - HEMATOLOGY ORD ERABLES [facility] [address] [place] [address] * (ABNORMAL) COMPREHENSIVE METABOLIC PANEL (07/03/2021 4:24 AM [facility]) Glucose 119(H) 70 - 105 mg/dL 07/03/2021 11:02 AM [facility] Sodium 142 136 - 145 mmol/L 07/03/2021 11:02 AM [facility] Potassium 4.2 3.5 - 5.1 mmol/L 07/03/2021 11:02 AM [facility] Chloride 103 98 - 107 mmol/L 07/03/2021 11:02 AM [facility] CO2 26 23 - 31 mmol/L 07/03/2021 11:02 AM [facility] Calcium 9.7 8.4 - 10.4 mg/dL 07/03/2021 11:02 AM [facility] Anion Gap 13 8 - 18 mmol/L 07/03/2021 11:02 AM [facility] BUN 38(H) 8.9 - 20.6 mg/dL 07/03/2021 11:02 AM [facility] Creatinine 1.01 0.72 - 1.25 mg/dL 07/03/2021 11:02 AM [facility] Alkaline Phosphatase 143 40 - 150 U/L 07/03/2021 11:02 AM [facility] ALT 36 0 - 61 U/L 07/03/2021 11:02 AM [facility] AST 16 5 - 34 U/L 07/03/2021 11:02 AM [facility] Protein Total 7.6 6.4 - 8.3 gm/dL 07/03/2021 11:02 AM [facility] Albumin 3.7 3.5 - 5.2 gm/dL 07/03/2021 11:02 AM [facility] Bilirubin Total 0.1(L) 0.2 - 1.2 mg/dL 07/03/2021 11:02 AM [facility] INTERN [facility] eGFR by MDRD >60 >60 mL/min/1.7 3m2 07/03/2021 11:02 AM MBA INTERN [facility] eGFR by MDRD >60 >60 mL/min/1.7 3m2 07/03/2021 11:02 AM MBA INTERN [facility] Blood BLOOD SPECIMEN / Unknown Venipuncture / Unknown 07/03/2021 4:24 AM MBA INTERN 07/03/2021 10:11 AM MBA INTERN Vinicio Quintanilla MD LAB - CHEMISTRY JOSE ENRIQUE VELA [facility] Organization Address City/State/ZIP Co de Phone Number [facility] [address] [place] [address] documented in this encounter Visit Diagnoses Not on filedocumented in this encounter Care Teams Associate Professor Of Sociology Relationship Specialty Start Date End Date Pepe Martel MD [address] [place] [id number] PCP - General 08/14/16 documented as of this encounter
--- OUTSIDE RECORDS SUMMARY | 2024-08-23 06:07 | XMS_ITS | Encounter Summary ---
Author Organization [facility] Address [address] [facility] [place] [address] Care Team Providers Care Line Supply Name Role Phone Pepe Martel MD Primary Care Provider [phone] Encounter Details Date Type Department Care Team (Late st Contact Info) Description 06/23/2021 Lab Requisition [facility] [address] [place] [address] [place] [address] [place] [address] Social History Tobacco Use Types Packs/Day Years [...] W AUTO DIFFERENTIAL STAT 06/23/2021 3:33 AM [facility] COMPREHENSIVE METABOLIC PANEL STAT 06/23/2021 3:33 AM [facility] documented in this encounter Results * (ABNORMAL) CBC WITH DIFFERENTIAL (06/23/2021 3:33 AM [facility]) WBC 9.1 4.4 - 10.7 x10E9/L 06/23/2021 10:34 AM DATAB[facility] SUPPORT [facility] WBC Corrected 06/23/2021 10:34 AM [facility]PPORT [facility] RBC 4.45 3.80 - 5.40 x10E12/L 06/23/2021 10:34 AM [facility] Hemoglobin 11.7(L) 12.0 - 17.6 gm/dL 06/23/2021 10:34 AM [facility] Hematocrit 38.5 35.2 - 51.7 % 06/23/2021 10:34 AM [facility] MCV 86.5 80.7 - 98.3 fl 06/23/2021 10:34 AM [facility]PPORT [facility] MCH 26.3(L) 26.7 - 34.0 pg 06/23/2021 10:34 AM [facility]PPORT [facility] MCHC 30.4(L) 30.8 - 35.9 gm/dL 06/23/2021 10:34 AM [facility] Platelet Count 438(H) 153 - 416 x10E9/L 06/23/2021 10:34 AM [facility] RDW-CV 12.8 12.1 - 14.9 % 06/23/2021 10:34 AM [facility] MPV 10.3 9.4 - 12.9 fl 06/23/2021 10:34 AM [facility] Neutrophils % 69.5 44.0 - 73.0 % 06/23/2021 10:34 AM [facility]PPORT [facility] Lymphocytes % 16.4(L) 20.0 - 43.0 % 06/23/2021 10:34 AM [facility] Monocytes % 7.9 5.0 - 13.0 % 06/23/2021 10:34 AM [facility] Eosinophils % 5.3 0.0 - 6.0 % 06/23/2021 10:34 AM [facility] Basophils % 0.6 0.0 - 2.0 % 06/23/2021 10:34 AM [facility] Immature Granulocytes 0.3 0 - 1 % 06/23/2021 10:34 AM [facility] Neutrophil Absolute 6.32 2.01 - 7.14 x10E9/L 06/23/2021 10:34 AM [facility] Lymphocytes Absolute 1.49 1.07 - 3.94 x10E9/L 06/23/2021 10:34 AM [facility] Monocytes Absolute 0.72 0.26 - 1.07 x10E9/L 06/23/2021 10:34 AM [facility] Eosinophils Absolute 0.48(H) 0 - 0.47 x10E9/L 06/23/2021 10:34 AM [facility] Basophils Absolute 0.05 0 - 0.08 x10E9/L 06/23/2021 10:34 AM [facility] Immature Granulocytes Absolute 0.03 0.00 - 0.06 x10E9/L 06/23/2021 10:34 AM [facility] nRBC Auto 0 /100 WBC 06/23/2021 10:34 AM [facility] Blood BLOOD SPECIMEN / Unknown Venipuncture / Unknown 06/23/2021 3:33 AM [facility] SUPPORT 06/23/2021 9:33 AM [facility] Vinicio Quintanilla MD LAB - HEMATOLOGY ORD ERABLES [facility] [address] [place] [address] * (ABNORMAL) COMPREHENSIVE METABOLIC PANEL (06/23/2021 3:33 AM [facility]) [facility] Glucose 95 70 - 105 mg/dL 06/23/2021 10:32 AM [facility] Sodium 140 136 - 145 mmol/L 06/23/2021 10:32 AM [facility] Potassium 5.2(H) 3.5 - 5.1 mmol/L 06/23/2021 10:32 AM [facility] Chloride 102 98 - 107 mmol/L 06/23/2021 10:32 AM [facility] CO2 22(L) 23 - 31 mmol/L 06/23/2021 10:32 AM [facility] Calcium 9.7 8.4 - 10.4 mg/dL 06/23/2021 10:32 AM [facility] Anion Gap 16 8 - 18 mmol/L 06/23/2021 10:32 AM [facility] BUN 32(H) 8.9 - 20.6 mg/dL 06/23/2021 10:32 AM [facility] Creatinine 0.86 0.72 - 1.25 mg/dL 06/23/2021 10:32 AM [facility] Alkaline Phosphatase 123 40 - 150 U/L 06/23/2021 10:32 AM [facility] ALT 34 0 - 61 U/L 06/23/2021 10:32 AM [facility] AST 21 5 - 34 U/L 06/23/2021 10:32 AM [facility] Protein Total 7.9 6.4 - 8.3 gm/dL 06/23/2021 10:32 AM [facility] Albumin 3.6 3.5 - 5.2 gm/dL 06/23/2021 10:32 AM [facility] Bilirubin Total 0.2 0.2 - 1.2 mg/dL 06/23/2021 10:32 AM [facility] eGFR by MDRD >60 >60 mL/min/1.7 3m2 06/23/2021 10:32 AM [facility] eGFR by MDRD >60 >60 mL/min/1.7 3m2 06/23/2021 10:32 AM [facility] Blood BLOOD SPECIMEN / Unknown Venipuncture / Unknown 06/23/2021 3:33 AM [facility] 06/23/2021 9:33 AM [facility] Vinicio Quintanilla MD LAB - CHEMISTRY JOSE ENRIQUE VELA [facility] Organization Address City/State/ZIP Co de Phone Number [facility] [address] [place] [address] documented in this encounter Visit Diagnoses Not on filedocumented in this encounter Care Teams Line Supply Relationship Specialty Start Date End Date Pepe Martel MD [address] [place] [phone] PCP - General 08/14/16 documented as of this encounter
--- OUTSIDE RECORDS SUMMARY | 2024-08-23 06:08 | XMS_ITS | Encounter Summary ---
Author Organization [facility] Address [address] [place] [address] Care Team Providers Care Finished Carpet Inspector Name Role Phone Pepe Martel MD Primary Care Provider [phone] Encounter Details Date Type Department Care Team (Late st Contact Info) Description 12/04/2021 Lab Requisition [facility] [address] [place] [address] Alverto Virgen MD [address] [place] [address] of [place] [address] Social History Tobacco Use Types Packs/Day Years [...] - 43.0 % 12/04/2021 11:53 AM CDT [facility] Monocytes % 10.4 5.0 - 13.0 % 12/04/2021 11:53 AM CDT [facility] Eosinophils % 2.7 0.0 - 6.0 % 12/04/2021 11:53 AM CDT [facility] Basophils % 0.2 0.0 - 2.0 % 12/04/2021 11:53 AM CDT [facility] Immature Granulocytes 0.2 0 - 1 % 12/04/2021 11:53 AM CDT [facility] Neutrophil Absolute 5.18 2.01 - 7.14 x10E9/L 12/04/2021 11:53 AM CDT [facility] Lymphocytes Absolute 2.21 1.07 - 3.94 x10E9/L 12/04/2021 11:53 AM CDT [facility] Monocytes Absolute 0.89 0.26 - 1.07 x10E9/L 12/04/2021 11:53 AM CDT [facility] Eosinophils Absolute 0.23 0 - 0.47 x10E9/L 12/04/2021 11:53 AM CDT [facility] Basophils Absolute 0.02 0 - 0.08 x10E9/L 12/04/2021 11:53 AM CDT [facility] Immature Granulocytes Absolute 0.02 0.00 - 0.06 x10E9/L 12/04/2021 11:53 AM CDT [facility] nRBC Auto 0 /100 WBC 12/04/2021 11:53 AM T [facility] Blood BLOOD SPECIMEN / Unknown Venipuncture / Unknown 12/04/2021 3:05 AM CDT 12/04/2021 10:59 AM CDT Alverto Virgen MD LAB - HEMATOLOGY ORDERABLES [facility] [address] [place] [address] * (ABNORMAL) COMPREHENSIVE METABOLIC PANEL (12/04/2021 3:05 AM CDT) [facility] Glucose 100 70 - 105 mg/dL 12/04/2021 11:48 AM CDT [facility] Sodium 141 136 - 145 mmol/L 12/04/2021 11:48 AM CDT [facility] Potassium 4.8 3.5 - 5.1 mmol/L 12/04/2021 11:48 AM CDT [facility] Chloride 102 98 - 107 mmol/L 12/04/2021 11:48 AM CDT [facility] CO2 24 23 - 31 mmol/L 12/04/2021 11:48 AM CDT [facility] Calcium 10.3 8.4 - 10.4 mg/dL 12/04/2021 11:48 AM T [facility] Anion Gap 15 8 - 18 mmol/L 12/04/2021 11:48 AM CDT [facility] BUN 31(H) 8.9 - 20.6 mg/dL 12/04/2021 11:48 AM CDT [facility] Creatinine 1.11 0.72 - 1.25 mg/dL 12/04/2021 11:48 AM T [facility] Alkaline Phosphatase 126 40 - 150 U/L 12/04/2021 11:48 AM CDT [facility] ALT 18 0 - 61 U/L 12/04/2021 11:48 AM CDT [facility] AST 13 5 - 34 U/L 12/04/2021 11:48 AM T [facility] Protein Total 7.7 6.4 - 8.3 gm/dL 12/04/2021 11:48 AM T [facility] Albumin 3.7 3.5 - 5.2 gm/dL 12/04/2021 11:48 AM T [facility] Bilirubin Total 0.3 0.2 - 1.2 mg/dL 12/04/2021 11:48 AM [facility] eGFR by CKD-EPI 89(L) >=90 mL/min/1.7 3 m2 12/04/2021 11:48 AM T [facility] Blood BLOOD SPECIMEN / Unknown Venipuncture / Unknown 12/04/2021 3:05 AM CDT 12/04/2021 10:59 AM CDT Alverto Virgen MD LAB - CHEMISTRY O RDERABLES [facility] [address] [place] [address] documented in this encounter Visit Diagnoses Not on filedocumented in this encounter Care Teams Finished Carpet Inspector Relationship Specialty Start Date End Date Pepe Martel MD [address] [place] [id number] PCP - General 08/14/16 documented as of this encounter
--- OUTSIDE RECORDS SUMMARY | 2024-08-23 06:08 | XMS_ITS | Encounter Summary ---
Author Organization [facility] Address [address] [place] [address] Care Team Providers Care Telemetry Rn Name Role Phone Pepe Martel MD Primary Care Provider [phone] Encounter Details Date Type Department Care Team (Late st Contact Info) Description 09/25/2021 Lab Requisition [facility] [address] [place] [address] [place] [address] [place] [address] Social History Tobacco Use Types Packs/Day Years [...] - 10.7 x10E9/L 09/25/2021 10:10 AM CDT [facility] WBC Corrected 09/25/2021 10:10 AM CDT [facility] RBC 4.36 3.80 - 5.40 x10E12/L 09/25/2021 10:10 AM CDT [facility] Hemoglobin 11.5(L) 12.0 - 17.6 gm/dL 09/25/2021 10:10 AM CDT [facility] Hematocrit 38.7 35.2 - 51.7 % 09/25/2021 10:10 AM CDT [facility] MCV 88.8 80.7 - 98.3 fl 09/25/2021 10:10 AM CDT [facility] MCH 26.4(L) 26.7 - 34.0 pg 09/25/2021 10:10 AM CDT [facility] MCHC 29.7(L) 30.8 - 35.9 gm/dL 09/25/2021 10:10 AM CDT [facility] Platelet Count 400 153 - 416 x10E9/L 09/25/2021 10:10 AM CDT [facility] RDW-CV 13.6 12.1 - 14.9 % 09/25/2021 10:10 AM CDT [facility] MPV 10.8 9.4 - 12.9 fl 09/25/2021 10:10 AM CDT [facility] Neutrophils % 54.5 44.0 - 73.0 % 09/25/2021 10:10 AM CDT [facility] Lymphocytes % 31.1 20.0 - 43.0 % 09/25/2021 10:10 AM CDT [facility] Monocytes % 9.3 5.0 - 13.0 % 09/25/2021 10:10 AM CDT [facility] Eosinophils % 4.6 0.0 - 6.0 % 09/25/2021 10:10 AM CDT [facility] Basophils % 0.4 0.0 - 2.0 % 09/25/2021 10:10 AM CDT [facility] Immature Granulocytes 0.1 0 - 1 % 09/25/2021 10:10 AM CDT [facility] Neutrophil Absolute 3.63 2.01 - 7.14 x10E9/L 09/25/2021 10:10 AM CDT [facility] Lymphocytes Absolute 2.08 1.07 - 3.94 x10E9/L 09/25/2021 10:10 AM CDT [facility] Monocytes Absolute 0.62 0.26 - 1.07 x10E9/L 09/25/2021 10:10 AM CDT [facility] Eosinophils Absolute 0.31 0 - 0.47 x10E9/L 09/25/2021 10:10 AM CDT [facility] Basophils Absolute 0.03 0 - 0.08 x10E9/L 09/25/2021 10:10 AM CDT [facility] Immature Granulocytes Absolute 0.01 0.00 - 0.06 x10E9/L 09/25/2021 10:10 AM CDT [facility] nRBC Auto 0 /100 WBC 09/25/2021 10:10 AM T [facility] Blood BLOOD SPECIMEN / Unknown Venipuncture / Unknown 09/25/2021 4:00 AM CDT 09/25/2021 9:31 AM CDT Vinicio Quintanilla MD LAB - HEMATOLOGY ORD ERABLES [facility] [address] [place] [address] * (ABNORMAL) COMPREHENSIVE METABOLIC PANEL (09/25/2021 4:00 AM CDT) [facility] Glucose 120(H) 70 - 105 mg/dL 09/25/2021 10:34 AM CDT [facility] Sodium 143 136 - 145 mmol/L 09/25/2021 10:34 AM CDT [facility] Potassium 4.3 3.5 - 5.1 mmol/L 09/25/2021 10:34 AM CDT [facility] Chloride 105 98 - 107 mmol/L 09/25/2021 10:34 AM CDT [facility] CO2 25 23 - 31 mmol/L 09/25/2021 10:34 AM CDT [facility] Calcium 9.9 8.4 - 10.4 mg/dL 09/25/2021 10:34 AM CDT [facility] Anion Gap 13 8 - 18 mmol/L 09/25/2021 10:34 AM CDT [facility] BUN 36(H) 8.9 - 20.6 mg/dL 09/25/2021 [facility] Creatinine 1.06 0.72 - 1.25 mg/dL 09/25/2021 10:34 AM [facility] Alkaline Phosphatase 140 40 - 150 U/L 09/25/2021 10:34 AM CDT [facility] ALT 29 0 - 61 U/L 09/25/2021 10:34 AM CDT [facility] AST 18 5 - 34 U/L 09/25/2021 10:34 AM [facility] Protein Total 7.5 6.4 - 8.3 gm/dL 09/25/2021 10:34 AM [facility] Albumin 3.5 3.5 - 5.2 gm/dL 09/25/2021 10:34 AM [facility] Bilirubin Total 0.2 0.2 - 1.2 mg/dL 09/25/2021 10:34 AM [facility] eGFR by CKD-EPI >90 >=90 mL/min/1.7 3 m2 09/25/2021 10:34 AM [facility] Blood BLOOD SPECIMEN / Unknown Venipuncture / Unknown 09/25/2021 4:00 AM CDT 09/25/2021 9:31 AM CDT Vinicio Quintanilla MD LAB - CHEMISTRY JOSE ENRIQUE VELA [facility] Organization Address City/State/ZIP Co de Phone Number [facility] [address] [place] [phone] documented in this encounter Visit Diagnoses Not on filedocumented in this encounter Care Teams Telemetry Rn Relationship Specialty Start Date End Date Pepe Martel MD [address] [place] [phone] PCP - General 08/14/16 documented as of this encounter
--- OUTSIDE RECORDS SUMMARY | 2024-08-23 06:08 | XMS_ITS | Encounter Summary ---
Author Organization [facility] Address [address] [facility] [place] [address] Care Team Providers Care Process Supervisor Name Role Phone Pepe Martel MD Primary Care Provider Encounter Details Date Type Department Care Team (Late st Contact Info) Description 04/21/2021 Lab Requisition [facility] [address] [place] [address] Davon Laws MD [address] [place] [address] Social History Tobacco Use Types [...] VANCOMYCIN LEVEL TROUGH STAT 04/21/2021 3:30 AM INDUSTRIAL MAINTENANCE REPAIRER HELPER documented in this encounter Results * VANCOMYCIN LEVEL TROUGH (04/21/2021 3:30 AM INDUSTRIAL MAINTENANCE REPAIRER HELPER) Vancomycin Trough 19.1 10.0 - 20.0 ug/mL 04/21/2021 11:26 AM INDUSTRIAL MAINTENANCE REPAIRER HELPER [facility] Blood BLOOD SPECIMEN / Unknown Venipuncture / Unknown 04/21/2021 3:30 AM INDUSTRIAL MAINTENANCE REPAIRER HELPER 04/21/2021 10:55 AM INDUSTRIAL MAINTENANCE REPAIRER HELPER Davon Laws MD LAB - CHEMISTRY JOSE ENRIQUE VELA [facility] Organization Address City/State/[facility] Co de Phone Number [facility] [address] [place] [address] documented in this encounter Visit Diagnoses Not on filedocumented in this encounter Care Teams Process Supervisor Relationship Specialty Start Date End Date Pepe Martel MD [address] [place] [phone] PCP - General 08/14/16 documented as of this encounter
--- OUTSIDE RECORDS SUMMARY | 2024-08-23 06:08 | XMS_ITS | Encounter Summary ---
Author Organization [facility] Address [address] [place] [address] Care Team Providers Care Polisher Dial Name Role Phone Pepe Martel MD Primary Care Provider [phone] Encounter Details Date Type Department Care Team (Late st Contact Info) Description 04/02/2021 Lab Requisition [facility] [address] [place] [address] Lamberto De La Cruz MD [address] [facility] [address] [place] [address] Social History Tobacco Use Types [...] Diagnosis Comments PTT STAT 04/02/2021 5:00 AM ELECTRONIC GLUING MACHINE OPERATOR PT-INR STAT 04/02/2021 5:00 AM ELECTRONIC GLUING MACHINE OPERATOR CBC W AUTO DIFFERENTIAL STAT 04/02/2021 5:00 AM ELECTRONIC GLUING MACHINE OPERATOR COMPREHENSIVE METABOLIC PANEL STAT 04/02/2021 5:00 AM ELECTRONIC GLUING MACHINE OPERATOR documented in this encounter Results * PTT (04/02/2021 5:00 AM ELECTRONIC GLUING MACHINE OPERATOR) PTT 31.5 23.0 - 38.4 sec 04/02/2021 10:20 AM ELECTRONIC GLUING MACHINE OPERATOR [facility] Blood BLOOD SPECIMEN / Unknown Venipuncture / Unknown 04/02/2021 5:00 AM ELECTRONIC GLUING MACHINE OPERATOR 04/02/2021 9:36 AM ELECTRONIC GLUING MACHINE OPERATOR Narrative [facility] - 04/02/2021 10:20 AM ELECTRONIC GLUING MACHINE OPERATOR Heparin Therapeutic Range for PTT: 69.0 - 110.0 seconds. Lamberto De La Cruz MD LAB - COAGULATION OR DERABLES Performing Organization Address City/State/[facility] Co de Phone Number [facility] [address] [place] [address] * PT-INR (04/02/2021 5:00 AM ELECTRONIC GLUING MACHINE OPERATOR) PT 14.5 12.1 - 14.8 sec 04/02/2021 10:19 AM ELECTRONIC GLUING MACHINE OPERATOR [facility] INR 1.1 0.9 - 1.1 04/02/2021 10:19 AM ELECTRONIC GLUING MACHINE OPERATOR [facility] Blood BLOOD SPECIMEN / Unknown Venipuncture / Unknown 04/02/2021 5:00 AM ELECTRONIC GLUING MACHINE OPERATOR 04/02/2021 9:36 AM ELECTRONIC GLUING MACHINE OPERATOR Narrative [facility] - 04/02/2021 10:19 AM ELECTRONIC GLUING MACHINE OPERATOR Conventional Warfarin Anticoagulant Therapy: INR Reference Range: 2.0-3.0 Intensive Warfarin Anticoagulant Therapy: INR Reference Range: 2.5-3.5 Lamberto De La Cruz MD LAB - COAGULATION OR DERABLES Performing Organization Address City/State/[facility] Co de Phone Number [facility] [address] [place] [address] * (ABNORMAL) CBC WITH DIFFERENTIAL (04/02/2021 5:00 AM ELECTRONIC GLUING MACHINE OPERATOR) WBC 7.6 4.4 - 10.7 x10E9/L 04/02/2021 10:14 AM [facility] WBC Corrected 04/02/2021 10:14 AM [facility] RBC 3.24(L) 3.80 - 5.40 x10E12/L 04/02/2021 10:14 AM [facility] Hemoglobin 8.9(L) 12.0 - 17.6 gm/dL 04/02/2021 10:14 AM [facility] Hematocrit 30.2(L) 35.2 - 51.7 % 04/02/2021 10:14 AM [facility] MCV 93.2 80.7 - 98.3 fl 04/02/2021 10:14 AM [facility] MCH 27.5 26.7 - 34.0 pg 04/02/2021 10:14 AM [facility] MCHC 29.5(L) 30.8 - 35.9 gm/dL 04/02/2021 10:14 AM [facility] Platelet Count 369 153 - 416 x10E9/L 04/02/2021 10:14 AM [facility] RDW-CV 15.4(H) 12.1 - 14.9 % 04/02/2021 10:14 AM [facility] MPV 10.1 9.4 - 12.9 fl 04/02/2021 10:14 AM [facility] Neutrophils % 63.6 44.0 - 73.0 % 04/02/2021 10:14 AM [facility] Lymphocytes % 17.9(L) 20.0 - 43.0 % 04/02/2021 10:14 AM [facility] Monocytes % 12.0 5.0 - 13.0 % 04/02/2021 10:14 AM [facility] Eosinophils % 5.7 0.0 - 6.0 % 04/02/2021 10:14 AM [facility] Basophils % 0.7 0.0 - 2.0 % 04/02/2021 10:14 AM [facility] Immature Granulocytes 0.1 0 - 1 % 04/02/2021 10:14 AM [facility] Neutrophil Absolute 4.83 2.01 - 7.14 x10E9/L 04/02/2021 10:14 AM [facility] Lymphocytes Absolute 1.36 1.07 - 3.94 x10E9/L 04/02/2021 10:14 AM [facility] Monocytes Absolute 0.91 0.26 - 1.07 x10E9/L 04/02/2021 10:14 AM [facility] Eosinophils Absolute 0.43 0 - 0.47 x10E9/L 04/02/2021 10:14 AM [facility] Basophils Absolute 0.05 0 - 0.08 x10E9/L 04/02/2021 10:14 AM [facility] Immature Granulocytes Absolute 0.01 0.00 - 0.06 x10E9/L 04/02/2021 10:14 AM [facility] nRBC Auto 0 /100 WBC 04/02/2021 10:14 AM [facility] Blood BLOOD SPECIMEN / Unknown Venipuncture / Unknown 04/02/2021 5:00 AM ELECTRONIC GLUING MACHINE OPERATOR 04/02/2021 9:[address] [facility] Lamberto De La Cruz MD LAB - HEMATOLOGY ORD ERABLES [facility] [address] [place] [id number] * (ABNORMAL) COMPREHENSIVE METABOLIC PANEL (04/02/2021 5:[address] [facility]) [facility] Glucose 125(H) 70 - 105 mg/dL 04/02/2021 10:37 AM [facility] Sodium 142 136 - 145 mmol/L 04/02/2021 10:37 AM [facility] Potassium 4.2 3.5 - 5.1 mmol/L 04/02/2021 10:37 AM [facility] Chloride 107 98 - 107 mmol/L 04/02/2021 10:37 AM [facility] CO2 21(L) 23 - 31 mmol/L 04/02/2021 10:37 AM [facility] Calcium 9.1 8.4 - 10.4 mg/dL 04/02/2021 10:37 AM [facility] Anion Gap 14 8 - 18 mmol/L 04/02/2021 10:37 AM [facility] BUN 25(H) 8.9 - 20.6 mg/dL 04/02/2021 10:37 AM [facility] Creatinine 0.90 0.72 - 1.25 mg/dL 04/02/2021 10:37 AM [facility] Alkaline Phosphatase 104 40 - 150 U/L 04/02/2021 10:37 AM [facility] ALT 20 0 - 61 U/L 04/02/2021 10:37 AM [facility] AST 26 5 - 34 U/L 04/02/2021 10:37 AM [facility] Protein Total 7.5 6.4 - 8.3 gm/dL 04/02/2021 10:37 AM [facility] Albumin 3.3(L) 3.5 - 5.2 gm/dL 04/02/2021 10:37 AM [facility] Bilirubin Total 0.3 0.2 - 1.2 mg/dL 04/02/2021 10:37 AM [facility] eGFR by MDRD >60 >60 mL/min/1.7 3m2 04/02/2021 10:37 AM [facility] eGFR by MDRD >60 >60 mL/min/1.7 3m2 04/02/2021 10:37 AM [facility] Blood BLOOD SPECIMEN / Unknown Venipuncture / Unknown 04/02/2021 5:00 AM ELECTRONIC GLUING MACHINE OPERATOR 04/02/2021 9:36 AM ELECTRONIC GLUING MACHINE OPERATOR Lamberto De La Cruz MD LAB - CHEMISTRY JOSE ENRIQUE VELA [facility] Organization Address City/State/ZIP Co de Phone Number [facility] [address] [place], [place] [phone] documented in this encounter Visit Diagnoses Not on filedocumented in this encounter Care Teams Polisher Dial Relationship Specialty Start Date End Date Pepe Martel MD [address] [place] [phone] PCP - General 08/14/16 documented as of this encounter
--- OUTSIDE RECORDS SUMMARY | 2024-08-23 06:08 | XMS_ITS | Encounter Summary ---
Author Organization [facility] Address [address] [place] [address] Care Team Providers Care Signaler Name Role Phone Pepe Martel MD Primary Care Provider [phone] Encounter Details Date Type Department Care Team (Late st Contact Info) Description 09/29/2021 Lab Requisition [facility] [address] [place] [address] [place] [address] [place] [address] Social History Tobacco Use Types Packs/Day Years [...] - 43.0 % 09/29/2021 11:19 AM CDT [facility] Monocytes % 10.8 5.0 - 13.0 % 09/29/2021 11:19 AM CDT [facility] Eosinophils % 3.3 0.0 - 6.0 % 09/29/2021 11:19 AM CDT [facility] Basophils % 0.4 0.0 - 2.0 % 09/29/2021 11:19 AM CDT [facility] Immature Granulocytes 0.4 0 - 1 % 09/29/2021 11:19 AM CDT [facility] Neutrophil Absolute 4.84 2.01 - 7.14 x10E9/L 09/29/2021 11:19 AM CDT [facility] Lymphocytes Absolute 2.11 1.07 - 3.94 x10E9/L 09/29/2021 11:19 AM CDT [facility] Monocytes Absolute 0.88 0.26 - 1.07 x10E9/L 09/29/2021 11:19 AM CDT [facility] Eosinophils Absolute 0.27 0 - 0.47 x10E9/L 09/29/2021 11:19 AM CDT [facility] Basophils Absolute 0.03 0 - 0.08 x10E9/L 09/29/2021 11:19 AM CDT [facility] Immature Granulocytes Absolute 0.03 0.00 - 0.06 x10E9/L 09/29/2021 11:19 AM CDT [facility] nRBC Auto 0 /100 WBC 09/29/2021 11:19 AM T [facility] Blood BLOOD SPECIMEN / Unknown Venipuncture / Unknown 09/29/2021 3:30 AM CDT 09/29/2021 10:16 AM CDT Vinicio Quintanilla MD LAB - HEMATOLOGY ORD ERABLES [facility] [address] [place] [address] * (ABNORMAL) COMPREHENSIVE METABOLIC PANEL (09/29/2021 3:30 AM CDT) [facility] Glucose 104 70 - 105 mg/dL 09/29/2021 11:43 AM CDT [facility] Sodium 142 136 - 145 mmol/L 09/29/2021 11:43 AM CDT [facility] Potassium 4.6 3.5 - 5.1 mmol/L 09/29/2021 11:43 AM CDT [facility] Chloride 104 98 - 107 mmol/L 09/29/2021 11:43 AM CDT [facility] CO2 26 23 - 31 mmol/L 09/29/2021 11:43 AM CDT [facility] Calcium 10.2 8.4 - 10.4 mg/dL 09/29/2021 11:43 AM CDT [facility] Anion Gap 12 8 - 18 mmol/L 09/29/2021 11:43 AM CDT [facility] BUN 32(H) 8.9 - 20.6 mg/dL 09/29/2021 11:43 AM CDT [facility] Creatinine 0.99 0.72 - 1.25 mg/dL 09/29/2021 11:[address] [facility] Alkaline Phosphatase 151(H) 40 - 150 U/L 09/29/2021 11:43 AM CDT [facility] ALT 28 0 - 61 U/L 09/29/2021 11:43 AM CDT [facility] AST 16 5 - 34 U/L 09/29/2021 11:43 AM T [facility] Protein Total 7.5 6.4 - 8.3 gm/dL 09/29/2021 11:43 AM CDT [facility] Albumin 3.7 3.5 - 5.2 gm/dL 09/29/2021 11:43 AM T [facility] Bilirubin Total 0.2 0.2 - 1.2 mg/dL 09/29/2021 11:43 AM T [facility] eGFR by CKD-EPI >90 >=90 mL/min/1.7 3 m2 09/29/2021 11:43 AM T [facility] Blood BLOOD SPECIMEN / Unknown Venipuncture / Unknown 09/29/2021 3:30 AM CDT 09/29/2021 9:44 AM CDT Vinicio Quintanilla MD LAB - CHEMISTRY JOSE ENRIQUE VELA [facility] Organization Address City/State/ZIP Co de Phone Number [facility] [address] [place] [phone] documented in this encounter Visit Diagnoses Not on filedocumented in this encounter Care Teams Signaler Relationship Specialty Start Date End Date Pepe Martel MD [address] [place] [phone] PCP - General 08/14/16 documented as of this encounter
--- OUTSIDE RECORDS SUMMARY | 2024-08-23 06:08 | XMS_ITS | Encounter Summary ---
Author Organization [facility] Health Address [address] [place] [address] Care Team Providers Care Franchise Sales Manager Name Role Phone Pepe Martel MD Primary Care Provider [phone] Encounter Details Date Type Department Care Team (Late st Contact Info) Description 04/10/2021 Lab Requisition [facility] [address] [place] [address] Lamberto De La Cruz MD [address] [facility] [address] [place] [address] Social History Tobacco Use Types [...] W AUTO DIFFERENTIAL STAT 04/10/2021 3:30 AM GASTROENTEROLOGY PROFESSOR COMPREHENSIVE METABOLIC PANEL STAT 04/10/2021 3:30 AM GASTROENTEROLOGY PROFESSOR documented in this encounter Results * (ABNORMAL) CBC WITH DIFFERENTIAL (04/10/2021 3:30 AM GASTROENTEROLOGY PROFESSOR) WBC 6.3 4.4 - 10.7 x10E9/L 04/10/2021 11:34 AM GASTROENTEROLOGY PROFESSOR [facility] WBC Corrected 04/10/2021 11:34 AM GASTROENTEROLOGY PROFESSOR [facility] RBC 3.77(L) 3.80 - 5.40 x10E12/L 04/10/2021 11:34 AM GASTROENTEROLOGY PROFESSOR [facility] Hemoglobin 10.4(L) 12.0 - 17.6 gm/dL 04/10/2021 11:34 AM GASTROENTEROLOGY PROFESSOR [facility] Hematocrit 33.7(L) 35.2 - 51.7 % 04/10/2021 11:34 AM GASTROENTEROLOGY PROFESSOR [facility] MCV 89.4 80.7 - 98.3 fl 04/10/2021 11:34 AM GASTROENTEROLOGY PROFESSOR [facility] MCH 27.6 26.7 - 34.0 pg 04/10/2021 11:34 AM GASTROENTEROLOGY PROFESSOR [facility] MCHC 30.9 30.8 - 35.9 gm/dL 04/10/2021 11:34 AM GASTROENTEROLOGY PROFESSOR [facility] Platelet Count 475(H) 153 - 416 x10E9/L 04/10/2021 11:34 AM GASTROENTEROLOGY PROFESSOR [facility] RDW-CV 14.8 12.1 - 14.9 % 04/10/2021 11:34 AM GASTROENTEROLOGY PROFESSOR [facility] MPV 10.1 9.4 - 12.9 fl 04/10/2021 11:34 AM GASTROENTEROLOGY PROFESSOR [facility] Neutrophils % 61.3 44.0 - 73.0 % 04/10/2021 11:34 AM GASTROENTEROLOGY PROFESSOR [facility] Lymphocytes % 20.3 20.0 - 43.0 % 04/10/2021 11:34 AM [facility] Monocytes % 10.2 5.0 - 13.0 % 04/10/2021 11:34 AM [facility] Eosinophils % 7.2(H) 0.0 - 6.0 % 04/10/2021 11:34 AM [facility] Basophils % 0.8 0.0 - 2.0 % 04/10/2021 11:34 AM [facility] Immature Granulocytes 0.2 0 - 1 % 04/10/2021 11:34 AM [facility] Neutrophil Absolute 3.85 2.01 - 7.14 x10E9/L 04/10/2021 11:34 AM [facility] Lymphocytes Absolute 1.27 1.07 - 3.94 x10E9/L 04/10/2021 11:34 AM [facility] Monocytes Absolute 0.64 0.26 - 1.07 x10E9/L 04/10/2021 11:34 AM [facility] Eosinophils Absolute 0.45 0 - 0.47 x10E9/L 04/10/2021 11:34 AM [facility] Basophils Absolute 0.05 0 - 0.08 x10E9/L 04/10/2021 11:34 AM [facility] Immature Granulocytes Absolute 0.01 0.00 - 0.06 x10E9/L 04/10/2021 11:34 AM [facility] nRBC Auto 0 /100 WBC 04/10/2021 11:34 AM [facility] Blood BLOOD SPECIMEN / Unknown Venipuncture / Unknown 04/10/2021 3:30 AM GASTROENTEROLOGY PROFESSOR 04/10/2021 10:12 AM [facility] Lamberto De La Cruz MD LAB - HEMATOLOGY ORD ERABLES [facility] [address] [place] [address] * (ABNORMAL) COMPREHENSIVE METABOLIC PANEL (04/10/2021 3:30 AM [facility]) [facility] Glucose 124(H) 70 - 105 mg/dL 04/10/2021 11:56 AM [facility] Sodium 137 136 - 145 mmol/L 04/10/2021 11:56 AM [facility] Potassium 4.8 3.5 - 5.1 mmol/L 04/10/2021 11:56 AM [facility] Chloride 102 98 - 107 mmol/L 04/10/2021 11:56 AM [facility] CO2 22(L) 23 - 31 mmol/L 04/10/2021 11:56 AM [facility] Calcium 9.1 8.4 - 10.4 mg/dL 04/10/2021 11:56 AM [facility] Anion Gap 13 8 - 18 mmol/L 04/10/2021 11:56 AM [facility] BUN 22(H) 8.9 - 20.6 mg/dL 04/10/2021 11:56 AM [facility] Creatinine 0.80 0.72 - 1.25 mg/dL 04/10/2021 11:56 AM [facility] Alkaline Phosphatase 105 40 - 150 U/L 04/10/2021 11:56 AM [facility] ALT 26 0 - 61 U/L 04/10/2021 11:56 AM [facility] AST 29 5 - 34 U/L 04/10/2021 11:56 AM [facility] Protein Total 7.4 6.4 - 8.3 gm/dL 04/10/2021 11:56 AM [facility] Albumin 3.3(L) 3.5 - 5.2 gm/dL 04/10/2021 11:56 AM [facility] Bilirubin Total 0.4 0.2 - 1.2 mg/dL 04/10/2021 11:56 AM [facility] eGFR by MDRD >60 >60 mL/min/1.7 3m2 04/10/2021 11:56 AM [facility] eGFR by MDRD >60 >60 mL/min/1.7 3m2 04/10/2021 11:56 AM [facility] Blood BLOOD SPECIMEN / Unknown Venipuncture / Unknown 04/10/2021 3:30 AM GASTROENTEROLOGY PROFESSOR 04/10/2021 10:12 AM [facility] Lamberto De La Cruz MD LAB - CHEMISTRY JOSE ENRIQUE VELA [facility] Organization Address City/State/ZIP Co de Phone Number [facility] [address] [place] [address] documented in this encounter Visit Diagnoses Not on filedocumented in this encounter Care Teams Franchise Sales Manager Relationship Specialty Start Date End Date Pepe Martel MD [address] [place] [id number] PCP - General 08/14/16 documented as of this encounter
--- OUTSIDE RECORDS SUMMARY | 2024-08-23 06:08 | XMS_ITS | Encounter Summary ---
Author Organization [facility] Address [address] [facility] [place] [address] Care Team Providers Care Beauty Consultant Name Role Phone Pepe Martel MD Primary Care Provider [phone] Encounter Details Date Type Department Care Team (Late st Contact Info) Description 03/20/2021 Lab Requisition [facility] [address] [place] [address] Andrés Ferro MD [address] [place] [address] [address] V[address] [place] [id number] Social History Tobacco Use Types Packs/Day Years [...] - 43.0 % 03/20/2021 2:12 PM CDT [facility] Monocytes % 8.2 5.0 - 13.0 % 03/20/2021 2:12 PM CDT [facility] Eosinophils % 4.1 0.0 - 6.0 % 03/20/2021 2:12 PM CDT [facility] Basophils % 0.7 0.0 - 2.0 % 03/20/2021 2:12 PM CDT [facility] Immature Granulocytes 0.6 0 - 1 % 03/20/2021 2:12 PM CDT [facility] Neutrophil Absolute 6.97 2.01 - 7.14 x10E9/L 03/20/2021 2:12 PM CDT [facility] Lymphocytes Absolute 1.51 1.07 - 3.94 x10E9/L 03/20/2021 2:12 PM CDT [facility] Monocytes Absolute 0.81 0.26 - 1.07 x10E9/L 03/20/2021 2:12 PM CDT [facility] Eosinophils Absolute 0.40 0 - 0.47 x10E9/L 03/20/2021 2:12 PM CDT [facility] Basophils Absolute 0.07 0 - 0.08 x10E9/L 03/20/2021 2:12 PM CDT [facility] Immature Granulocytes Absolute 0.06 0.00 - 0.06 x10E9/L 03/20/2021 2:12 PM CDT [facility] nRBC Auto 0 /100 WBC 03/20/2021 2:12 PM CDT [facility] Blood BLOOD SPECIMEN / Unknown Venipuncture / Unknown 03/20/2021 3:40 AM CDT 03/20/2021 1:25 PM CDT Andrés Ferro MD LAB - HEMATOLOGY O RDERABLES [facility] [address] [place] [address] * (ABNORMAL) COMPREHENSIVE METABOLIC PANEL (03/20/2021 3:40 AM CDT) [facility] Glucose 120(H) 70 - 105 mg/dL 03/20/2021 2:47 PM CDT [facility] Sodium 136 136 - 145 mmol/L 03/20/2021 2:47 PM CDT [facility] Potassium 5.6(H) 3.5 - 5.1 mmol/L 03/20/2021 2:47 PM CDT [facility] Chloride 100 98 - 107 mmol/L 03/20/2021 2:47 PM CDT [facility] CO2 22(L) 23 - 31 mmol/L 03/20/2021 2:47 PM CDT [facility] Calcium 8.5 8.4 - 10.4 mg/dL 03/20/2021 2:47 PM CDT [facility] Anion Gap 14 8 - 18 mmol/L 03/20/2021 2:47 PM CDT [facility] BUN 31(H) 8.9 - 20.6 mg/dL 03/20/2021 2:47 PM CDT [facility] Creatinine 1.29(H) 0.72 - 1.25 mg/dL 03/20/2021 2:47 PM CDT [facility] Alkaline Phosphatase 200(H) 40 - 150 U/L 03/20/2021 2:47 PM CDT [facility] ALT 37 0 - 61 U/L 03/20/2021 2:47 PM CDT [facility] AST 49(H) 5 - 34 U/L 03/20/2021 2:47 PM CDT [facility] Protein Total 8.8(H) 6.4 - 8.3 gm/dL 03/20/2021 2:47 PM CDT [facility] Albumin 3.1(L) 3.5 - 5.2 gm/dL 03/20/2021 2:47 PM CDT [facility] Bilirubin Total 0.2 0.2 - 1.2 mg/dL 03/20/2021 2:47 PM CDT [facility] eGFR by MDRD >60 >60 mL/min/1.7 3m2 03/20/2021 2:47 PM CDT [facility] eGFR by MDRD >60 >60 mL/min/1.7 3m2 03/20/2021 2:47 PM CDT [facility] Blood BLOOD SPECIMEN / Unknown Venipuncture / Unknown 03/20/2021 3:40 AM CDT 03/20/2021 1:25 PM CDT Andrés Ferro MD LAB - CHEMISTRY OR DERABLES Performing Organization Address City/State/[facility] Co de Phone Number [facility] [address] [place] [address] documented in this encounter Visit Diagnoses Not on filedocumented in this encounter Care Teams Beauty Consultant Relationship Specialty Start Date End Date Pepe Martel MD [address] [place] [id number] PCP - General 08/14/16 documented as of this encounter
--- OUTSIDE RECORDS SUMMARY | 2024-08-23 06:08 | XMS_ITS | Encounter Summary ---
Author Organization [facility] Address [address] [facility] [place] [address] Care Team Providers Care Freezing Room Worker Name Role Phone Pepe Martel MD Primary Care Provider [phone] Encounter Details Date Type Department Care Team (Late st Contact Info) Description 04/18/2021 Lab Requisition [facility] [address] [place] [address] Davon Laws MD [address] [place] [address] Social History Tobacco Use Types [...] VANCOMYCIN LEVEL TROUGH STAT 04/18/2021 4:03 AM [facility] [employer] JOINTER FEEDBACK documented in this encounter Results * VANCOMYCIN LEVEL TROUGH (04/18/2021 4:03 AM [facility] [employer] JOINTER FEEDBACK) Vancomycin Trough 16.2 10.0 - 20.0 ug/mL 04/18/2021 9:58 AM V[employer]INTER FEEDBACK [facility] Blood BLOOD SPECIMEN / Unknown Venipuncture / Unknown 04/18/2021 4:03 AM [facility] [employer]INTER FEEDBACK 04/18/2021 8:39 AM [facility] [employer]INTER FEEDBACK Davon Laws MD LAB - CHEMISTRY JOSE ENRIQUE VELA [facility] Organization Address City/State/[facility] Co de Phone Number [facility] [address] [place] [address] documented in this encounter Visit Diagnoses Not on filedocumented in this encounter Care Teams Freezing Room Worker Relationship Specialty Start Date End Date Pepe Martel MD [address] [place] [id number] PCP - General 08/14/16 documented as of this encounter
--- OUTSIDE RECORDS SUMMARY | 2024-08-23 06:08 | XMS_ITS | Clinical Summary ---
Author Organization Unknown Care Team Providers Care Quarter Trimmer Name Role Phone CHERRIE DIAMOND SAWER, TRIPP Unavailable Unavailabl e NOEMY PT, HARLEY Unavailable Unavailable CHANDA UTILITY FORESTER, CHIVO Unavailable Unavailabl e CARISSA OT, AGUSTIN Unavailable Unavailable PAU RN, RADHA Unavailable Unavailabl e BO PHANN, ELICIA Unavailable Unavailable Payers Payer Name Policy Type Policy Number Effective Date Expira tion Date MEDICARE.[facility] [id number] Problems Condition Name Condition Details Condition Category Status Onset Date Resolution Date Last Treatment Date Treating Clinician Comments UNSPECIFIED OPEN WOUND, RIGHT FOOT, SUBSEQUENT ENCOUNTER Active 2023-05 00:00: 00 TRACHEO-ESOP HAGEAL FISTULA FOLLOWING TRACHEOSTOMY Active 2023-05 00:00: 00 INFECTION OF TRACHEOSTOMY STOMA Active 2023-05 00:00: 00 PARAPLEGIA, UNSPECIFIED Active 05-17 00:00: 00 ESSENTIAL (PRIMARY) HYPERTENSION Active 05-17 00:00: 00 OBSTRUCTIVE SLEEP APNEA (ADULT) (PEDIATRIC) Active 05-17 00:00: 00 DEPRESSION, UNSPECIFIED Active 05-17 00:00: 00 CONSTIPATION , UNSPECIFIED Active 05-17 00:00: 00 ACCIDENTAL DISCHARGE FROM UNSP FIREARMS OR GUN, SEQUELA Active 05-17 00:00: 00 PRSNL HX OF TIA (TIA), AND CEREB INFRC W/O RESID DEFICITS Active 05-17 00:00: 00 PERSONAL HISTORY OF NICOTINE DEPENDENCE Active 05-17 00:00: 00 PERSONAL HISTORY OF OTH (HEALED) PHYSICAL INJURY AND TRAUMA Active 05-17 00:00: 00 GASTROSTOMY STATUS Active 2023-05 00:00: 00 PERSONAL HISTORY OF PNEUMONIA (RECURRENT) Active 2023-05 00:00: 00 Allergies, Adverse Reactions, [...] 2021-05 00:00: 00 03-13 00:00 :00 No [id number] Per instruc tions Per instructio ns (route: oral) Med Classific ation: Gastroint estinal Therapy Agents senna 8.6 mg tablet 2021-05 00:00: 00 Yes [id number] CONSTIPATIO N 1 tablet DAILY 1 tablet DAILY (route: oral) Med Classific ation: Gastroint estinal Therapy Agents lansoprazol e 30 mg delayed release,dis integrating tablet 2021-05 00:00: 00 03-13 00:00 :00 No [id number] Per instruc tions Per instructio ns (route: oral) Med Classific ation: Gastroint estinal Therapy Agents ondansetron 4 mg disintegrat ing tablet 2021-05 00:00: 00 03-13 00:00 :00 No [id number] Per instruc tions Per instructio ns (route: oral) Med Classific ation: Gastroint estinal Therapy Agents Docu 50 mg/5 mL oral liquid 2021-05 00:00: 00 Yes [id number] CONSTIPATIO N 100 mg DAILY 100 mg DAILY (route: oral) Med Classific ation: Gastroint estinal Therapy Agents carvedilol 12.5 mg tablet 2021-05 00:00: 00 Yes [id number] BLOOD PRESSURE 1 tablet 2 TIMES DAILY 1 tablet 2 TIMES DAILY (route: oral) Med Classific ation: Cardiovas cular Therapy Agents famotidine 20 mg tablet 2021-05 00:00: 00 03-13 00:00 :00 No [id number] Per instruc tions Per instructio ns (route: oral) Med Classific ation: Gastroint estinal Therapy Agents glycopyrrol ate 1 mg tablet 2021-05 00:00: 00 03-13 00:00 :00 No [id number] Per instruc tions Per instructio ns (route: oral) Med Classific ation: Gastroint estinal Therapy Agents levetiracet am 1,000 mg tablet 2021-05 00:00: 00 03-13 00:00 :00 No [id number] Per instruc tions Per instructio ns (route: oral) Med Classific ation: Central Nervous System Agents nadolol 40 mg tablet 2021-05 00:00: 00 03-13 00:00 :00 No [id number] Per instruc tions Per instructio ns (route: oral) Med Classific ation: Cardiovas cular Therapy Agents scopolamine 1 mg over 3 days transdermal patch 2021-05 00:00: 00 Yes [id number] NAUSEA AND VOMITING 1 patch,t ransder mal 3 day EVERY 72 HOURS 1 patch,alanis sdermal 3 day EVERY 72 HOURS (route: transderma l) Med Classific ation: Gastroint estinal Therapy Agents chlorhexidi ne gluconate 0.12 % mouthwash 2021-05 00:00: 00 03-13 00:00 :00 No [id number] Per instruc tions Per instructio ns (route: mucous membrane) Med Classific ation: Mouth-Thr oat-Denta l - Preparati ons Aspirin Childrens 81 mg chewable tablet 2023-05 00:00: 00 Yes [id number] BLOOD THINNER 1 tablet DAILY 1 tablet DAILY (route: oral) Alternate Route: GASTROSTO MY TUBE. Med Classific ation: Hematolog ical Agents baclofen 5 mg tablet 2023-05 00:00: 00 Yes [id number] MUSCLE RELAXER 1 tablet 3 TIMES DAILY 1 tablet 3 TIMES DAILY (route: oral) Alternate Route: GASTROSTO MY TUBE. Med Classific ation: Locomotor System Multiple Vitamin-Min erals tablet 2023-05 00:00: 00 Yes [id number] SUPPLEMENT 1 tablet DAILY 1 tablet DAILY (route: oral) Alternate Route: GASTROSTO MY TUBE. Med Classific ation: Electroly te Balance-N utritiona l Products Vital Signs Vital Name Observation Time Observation Value Commen ts Temperature 2024-08-21 12:17:00.000 98.4 [degF] Temperature 2024-08-15 10:47:00.000 98.4 [degF] Temperature 2024-08-09 11:00:00.000 98 [degF] Temperature 2024-08-01 15:02:00.000 97.8 [degF] Temperature 2024-07-27 14:01:00.000 98.1 [degF] Temperature 2024-07-20 10:57:00.000 97.6 [degF] Temperature 2024-07-11 11:35:00.000 98.1 [degF] Pulse 2024-08-21 12:17:00.000 83 /min Pulse 2024-08-15 10:47:00.000 73 /min Pulse 2024-08-09 11:00:00.000 87 /min Pulse 2024-08-01 15:02:00.000 79 /min Pulse 2024-07-27 14:01:00.000 75 /min Pulse 2024-07-20 10:57:00.000 78 /min Pulse 2024-07-11 11:35:00.000 75 /min O2 Saturation (%) 2024-08-21 12:17:00.000 96 % O2 Saturation (%) 2024-08-15 10:47:00.000 100 % O2 Saturation (%) 2024-08-09 11:00:00.000 97 % O2 Saturation (%) 2024-08-01 15:02:00.000 98 % O2 Saturation (%) 2024-07-27 14:01:00.000 97 % O2 Saturation (%) 2024-07-20 10:57:00.000 98 % O2 Saturation (%) 2024-07-11 11:35:00.000 98 % Respirations 2024-08-21 12:17:00.000 17 /min Respirations 2024-08-15 10:47:00.000 18 /min Respirations 2024-08-09 11:00:00.000 18 /min Respirations 2024-08-01 15:02:00.000 18 /min Respirations 2024-07-27 14:01:00.000 18 /min Respirations 2024-07-20 10:57:00.000 17 /min Respirations 2024-07-11 11:35:00.000 18 /min Systolic Blood Pressure 2024-08-21 12:17:00.000 112 mm [Hg] Systolic Blood Pressure 2024-08-15 10:47:00.000 126 mm [Hg] Systolic Blood Pressure 2024-08-09 11:00:00.000 122 mm [Hg] Systolic Blood Pressure 2024-08-01 15:02:00.000 136 mm [Hg] Systolic Blood Pressure 2024-07-27 14:01:00.000 108 mm [Hg] Systolic Blood Pressure 2024-07-20 10:57:00.000 110 mm [Hg] Systolic Blood Pressure 2024-07-11 11:35:00.000 130 mm [Hg] Diastolic Blood Pressure 2024-08-21 12:17:00.000 68 mm [Hg] Diastolic Blood Pressure 2024-08-15 10:47:00.000 84 mm [Hg] Diastolic Blood Pressure 2024-08-09 11:00:00.000 84 mm [Hg] Diastolic Blood Pressure 2024-08-01 15:02:00.000 70 mm [Hg] Diastolic Blood Pressure 2024-07-27 14:01:00.000 78 mm [Hg] Diastolic Blood Pressure 2024-07-20 10:57:00.000 74 mm [Hg] Diastolic Blood Pressure 2024-07-11 11:35:00.000 76 mm [Hg] Plan of Treatment Planned Activity Planned Date Details Comments Future Scheduled Test RN TO OBSE RVE, ASSESS, EVALUATE, AND DEVELOP AN INDIVIDUALIZED PLAN OF CARE. AGENCY MAY ACCEPT ORDERS FROM CONSULTING PHYSICIANS . RN TO OBSERVE AND ASSESS, CREDIT INTERVIEWER/CENTER DIRECTOR LEAD TEACHER TO OBSERVE FOR RISK FOR FALLS AND INSTRUCT IN FALL PREVENTION, HOME SAFETY, MEDICATION MANAGEMENT, INFECTION PREVENTION, AND NUTRITION MANAGEMENT. RN/CREDIT INTERVIEWER/CENTER DIRECTOR LEAD TEACHER NURSE MAY PERFORM O2 SATURATION LEVEL ON ADMISSION AND PRN FOR EVERY VISIT FOR RN TO ASSESS/CREDIT INTERVIEWER TO OBSERVE PATIENT, WITH NOTIFICATION TO THE PHYSICIAN IF SATURATION IS 90% IN THE ABSENCE OF MORE SPECIFIC PARAMETERS FROM THE PHYSICIAN. AGENCY MAY PERFORM A RESUMPTION OF CARE VISIT FOLLOWING ANY HOSPITAL ADMISSION. RN/CREDIT INTERVIEWER/CENTER DIRECTOR LEAD TEACHER TO MONITOR CO-MORBID CONDITIONS LISTED ON THE PLAN OF CARE AND ANY NEW CONDITIONS THAT PRESENT THEMSELVES DURING THIS EPISODE TO IDENTIFY CHANGES AND INTERVENE TO MINIMIZE COMPLICATIONS. [code = RN TO OBSERVE, ASSESS, EVALUATE, AND DEVELOP AN INDIVIDUALIZED PLAN OF CARE. AGENCY MAY ACCEPT ORDERS FROM CONSULTING PHYSICIANS . RN TO OBSERVE AND ASSESS, CREDIT INTERVIEWER/CENTER DIRECTOR LEAD TEACHER TO OBSERVE FOR RISK FOR FALLS AND INSTRUCT IN FALL PREVENTION, HOME SAFETY, MEDICATION MANAGEMENT, INFECTION PREVENTION, AND NUTRITION MANAGEMENT. RN/CREDIT INTERVIEWER/CENTER DIRECTOR LEAD TEACHER NURSE MAY PERFORM O2 SATURATION LEVEL ON ADMISSION AND PRN FOR EVERY VISIT FOR RN TO ASSESS/CREDIT INTERVIEWER TO OBSERVE PATIENT, WITH NOTIFICATION TO THE PHYSICIAN IF SATURATION IS 90% IN THE ABSENCE OF MORE SPECIFIC PARAMETERS FROM THE PHYSICIAN. AGENCY MAY PERFORM A RESUMPTION OF CARE VISIT FOLLOWING ANY HOSPITAL ADMISSION. RN/CREDIT INTERVIEWER/CENTER DIRECTOR LEAD TEACHER TO MONITOR CO-MORBID CONDITIONS LISTED ON THE PLAN OF CARE AND ANY NEW CONDITIONS THAT PRESENT THEMSELVES DURING THIS EPISODE TO IDENTIFY CHANGES AND INTERVENE TO MINIMIZE COMPLICATIONS.] Future Scheduled Test MEDICATION MANAGEMENT; RN/CREDIT INTERVIEWER/CENTER DIRECTOR LEAD TEACHER TO REVIEW MEDICATIONS FOR INTERACTIONS, EFFECTIVENESS OF DRUG THERAPY, AND SIGNS/SYMPTOMS OF ADVERSE REACTIONS. MAY INSTRUCT AND REINFORCE MEDICATION TEACHING RELATED TO THE USE OF MEDICATIONS, DOSAGE, FREQUENCY, PURPOSE, SIDE EFFECTS, AND TO REPORT COMPLICATIONS. [code = MEDICATION MANAGEMENT; RN/CREDIT INTERVIEWER/CENTER DIRECTOR LEAD TEACHER TO REVIEW MEDICATIONS FOR INTERACTIONS, EFFECTIVENESS OF DRUG THERAPY, AND SIGNS/SYMPTOMS OF ADVERSE REACTIONS. MAY INSTRUCT AND REINFORCE MEDICATION TEACHING RELATED TO THE USE OF MEDICATIONS, DOSAGE, FREQUENCY, PURPOSE, SIDE EFFECTS, AND TO REPORT COMPLICATIONS.] Future Scheduled Test RESPIRATOR Y SYSTEM MANAGEMENT; RN TO ASSESS AND TEACH, CREDIT INTERVIEWER/CENTER DIRECTOR LEAD TEACHER TO OBSERVE AND TEACH RELATED TO ALTERED RESPIRATORY STATUS TO MINIMIZE COMPLICATIONS AND REDUCE HOSPITALIZATION. [code = RESPIRATORY SYSTEM MANAGEMENT; RN TO ASSESS AND TEACH, CREDIT INTERVIEWER/CENTER DIRECTOR LEAD TEACHER TO OBSERVE AND TEACH RELATED TO ALTERED RESPIRATORY STATUS TO MINIMIZE COMPLICATIONS AND REDUCE HOSPITALIZATION.] Future Scheduled Test FALL REDUC TION MANAGEMENT; RN TO ASSESS AND OBSERVE, CREDIT INTERVIEWER/CENTER DIRECTOR LEAD TEACHER TO OBSERVE FALL RISK FACTORS AND EDUCATE PATIENT/CAREGIVER ON STRATEGIES TO MINIMIZE THE RISK OF FALLING. [code = FALL REDUCTION MANAGEMENT; RN TO ASSESS AND OBSERVE, CREDIT INTERVIEWER/CENTER DIRECTOR LEAD TEACHER TO OBSERVE FALL RISK FACTORS AND EDUCATE PATIENT/CAREGIVER ON STRATEGIES TO MINIMIZE THE RISK OF FALLING.] Future Scheduled Test GENITOURIN ANNIE MANAGEMENT; RN TO ASSESS AND TEACH, CREDIT INTERVIEWER/CENTER DIRECTOR LEAD TEACHER TO OBSERVE AND TEACH RELATED TO ALTERED GENITOURINARY STATUS TO MINIMIZE COMPLICATIONS AND REDUCE HOSPITALIZATION. [code = GENITOURINARY MANAGEMENT; RN TO ASSESS AND TEACH, CREDIT INTERVIEWER/CENTER DIRECTOR LEAD TEACHER TO OBSERVE AND TEACH RELATED TO ALTERED GENITOURINARY STATUS TO MINIMIZE COMPLICATIONS AND REDUCE HOSPITALIZATION.] Future Scheduled Test URINARY IN CONTINENCE MANAGEMENT; RN TO ASSESS AND TEACH, CREDIT INTERVIEWER/LVNTO OBSERVE AND TEACH MANAGEMENT OF URINARY INCONTINENCE. TEACH/INSTRUCT ON PREVENTING INFECTION AND SKIN BREAKDOWN. RN/CREDIT INTERVIEWER/CENTER DIRECTOR LEAD TEACHER MAY INSTRUCT IN BLADDER TRAINING PROGRAM INDICATED. [code = URINARY INCONTINENCE MANAGEMENT; RN TO ASSESS AND TEACH, CREDIT INTERVIEWER/LVNTO OBSERVE AND TEACH MANAGEMENT OF URINARY INCONTINENCE. TEACH/INSTRUCT ON PREVENTING INFECTION AND SKIN BREAKDOWN. RN/CREDIT INTERVIEWER/CENTER DIRECTOR LEAD TEACHER MAY INSTRUCT IN BLADDER TRAINING PROGRAM INDICATED.] Future Scheduled Test URINARY TR ACT INFECTION MANAGEMENT; RN/CENTER DIRECTOR LEAD TEACHER/CREDIT INTERVIEWER TO PROVIDE SKILLED TEACHING AND SELF- CARE MANAGEMENT RELATED TO UTI TO MINIMIZE COMPLICATIONS AND REDUCE THE RISK OF HOSPITALIZATION. [code = URINARY TRACT INFECTION MANAGEMENT; RN/CENTER DIRECTOR LEAD TEACHER/CREDIT INTERVIEWER TO PROVIDE SKILLED TEACHING AND SELF- CARE MANAGEMENT RELATED TO UTI TO MINIMIZE COMPLICATIONS AND REDUCE THE RISK OF HOSPITALIZATION.] Future Scheduled Test GASTROINTE STINAL MANAGEMENT; RN TO ASSESS AND TEACH, CENTER DIRECTOR LEAD TEACHER/CREDIT INTERVIEWER TO OBSERVE AND TEACH RELATED TO ALTERED GASTROINTESTINAL STATUS TO MINIMIZE COMPLICATIONS AND REDUCE HOSPITALIZATION. [code = GASTROINTESTINAL MANAGEMENT; RN TO ASSESS AND TEACH, CENTER DIRECTOR LEAD TEACHER/CREDIT INTERVIEWER TO OBSERVE AND TEACH RELATED TO ALTERED [...] DRAIN DRESSING NEEDED ] Future Scheduled Test PAIN MANAG EMENT; RN TO ASSESS AND TEACH, CENTER DIRECTOR LEAD TEACHER/CREDIT INTERVIEWER TO OBSERVE AND TEACH AND PROVIDE EDUCATION ON PAIN MANAGEMENT TECHNIQUES. [code = PAIN MANAGEMENT; RN TO ASSESS AND TEACH, CENTER DIRECTOR LEAD TEACHER/CREDIT INTERVIEWER TO OBSERVE AND TEACH AND PROVIDE EDUCATION ON PAIN MANAGEMENT TECHNIQUES.] Future Scheduled Test RN/CREDIT INTERVIEWER/CENTER DIRECTOR LEAD TEACHER TO PERFORM/TEACH PATIENT/CAREGIVER WOUND CARE TO TOP OF RIGHT FOOT IRRIGATE/CLEANSE WITH WOUND CLEANSER APPLY XEROFORM MAY APPLY SKIN BARRIER TO PERIWOUND PRN TO PREVENT MACERATION AND PROTECT PERIWOUND COVER WITH FOAM DRESSING CHANGE DRESSING THREE TIMES A WEEK AND PRN FOR SOILED DRAINAGE DRESSING [code = RN/CREDIT INTERVIEWER/CENTER DIRECTOR LEAD TEACHER TO PERFORM/TEACH PATIENT/CAREGIVER WOUND CARE TO TOP OF RIGHT FOOT IRRIGATE/CLEANSE WITH WOUND CLEANSER APPLY XEROFORM MAY APPLY SKIN BARRIER TO PERIWOUND PRN TO PREVENT MACERATION AND PROTECT PERIWOUND COVER WITH FOAM DRESSING CHANGE DRESSING THREE TIMES A WEEK AND PRN FOR SOILED DRAINAGE DRESSING ] Future Scheduled Test PRN VISITS ; NUMBER OF RN/CREDIT INTERVIEWER/CENTER DIRECTOR LEAD TEACHER VISITS: 1 RN/CREDIT INTERVIEWER/CENTER DIRECTOR LEAD TEACHER TO PERFORM: WOUND MANAGEMENT FOR THE FOLLOWING REASONS: COMPLICATIONS [code = PRN VISITS; NUMBER OF RN/CREDIT INTERVIEWER/CENTER DIRECTOR LEAD TEACHER VISITS: 1 RN/CREDIT INTERVIEWER/CENTER DIRECTOR LEAD TEACHER TO PERFORM: WOUND MANAGEMENT FOR THE FOLLOWING REASONS: COMPLICATIONS ] Future Scheduled Test RISK FOR H OSPITALIZATION; RN TO ASSESS/TEACH, CENTER DIRECTOR LEAD TEACHER/CREDIT INTERVIEWER TO OBSERVE/TEACH PATIENT/CAREGIVER ON RISK FOR HOSPITALIZATION/EMERGENCY ROOM VISITS, TEACH SIGNS AND SYMPTOMS THAT PUT PATIENT AT RISK, WHEN TO NOTIFY NURSE/PHYSICIAN OF COMPLICATIONS/DECLINE, AND WHEN TO CALL 911. [code = RISK FOR HOSPITALIZATION; RN TO ASSESS/TEACH, CENTER DIRECTOR LEAD TEACHER/CREDIT INTERVIEWER TO OBSERVE/TEACH PATIENT/CAREGIVER ON RISK FOR HOSPITALIZATION/EMERGENCY ROOM VISITS, TEACH SIGNS AND SYMPTOMS THAT PUT PATIENT AT RISK, WHEN TO NOTIFY NURSE/PHYSICIAN OF COMPLICATIONS/DECLINE, AND WHEN TO CALL 911.] Future Scheduled Test CARDIOVASC ULAR SYSTEM; RN TO ASSESS/TEACH, CREDIT INTERVIEWER/CENTER DIRECTOR LEAD TEACHER TO OBSERVE/TEACH RELATED TO ALTERED CARDIOVASCULAR STATUS TO MINIMIZE COMPLICATIONS AND REDUCE HOSPITALIZATION. [code = CARDIOVASCULAR SYSTEM; RN TO ASSESS/TEACH, CREDIT INTERVIEWER/CENTER DIRECTOR LEAD TEACHER TO OBSERVE/TEACH RELATED TO ALTERED CARDIOVASCULAR STATUS TO MINIMIZE COMPLICATIONS AND REDUCE HOSPITALIZATION.] Future Scheduled Test HYPERTENSI ON MANAGEMENT; RN TO ASSESS AND TEACH, CREDIT INTERVIEWER/CENTER DIRECTOR LEAD TEACHER TO OBSERVE AND TEACH WARNING SIGNS AND SYMPTOMS TO AVOID HOSPITALIZATION. [code = HYPERTENSION MANAGEMENT; RN TO ASSESS AND TEACH, CREDIT INTERVIEWER/CENTER DIRECTOR LEAD TEACHER TO OBSERVE AND TEACH WARNING SIGNS AND SYMPTOMS TO AVOID HOSPITALIZATION.] Future Scheduled Test SKIN INTEG RITY RN TO ASSESS AND TEACH, CREDIT INTERVIEWER/CENTER DIRECTOR LEAD TEACHER TO OBSERVE AND TEACH INTEGUMENTARY STATUS TO IDENTIFY CHANGES AND INTERVENE TO MINIMIZE COMPLICATIONS. PROVIDE SKILLED TEACHING OF GENERAL WOUND AND SKIN CARE AND PREVENTION RELATED TO POTENTIAL FOR OR ACTUAL ALTERED SKIN INTEGRITY [code = SKIN INTEGRITY RN TO ASSESS AND TEACH, CREDIT INTERVIEWER/CENTER DIRECTOR LEAD TEACHER TO OBSERVE AND TEACH INTEGUMENTARY STATUS TO IDENTIFY CHANGES AND INTERVENE TO MINIMIZE COMPLICATIONS. PROVIDE SKILLED TEACHING OF GENERAL WOUND AND SKIN CARE AND PREVENTION RELATED TO POTENTIAL FOR OR ACTUAL ALTERED SKIN INTEGRITY ] Future Scheduled Test RN TO ASSE SS AND TEACH, CREDIT INTERVIEWER/CENTER DIRECTOR LEAD TEACHER TO OBSERVE AND TEACH INTEGUMENTARY STATUS RELATED [...] [code = RN TO ASSESS AND TEACH, CREDIT INTERVIEWER/CENTER DIRECTOR LEAD TEACHER TO OBSERVE AND TEACH INTEGUMENTARY STATUS RELATED TO PRESSURE INJURY MANAGEMENT TO IDENTIFY CHANGES AND INTERVENE TO MINIMIZE COMPLICATIONS. PROVIDE SKILLED TEACHING RELATED TO ALTERED SKIN INTEGRITY TO INCLUDE OFFLOADING, FREQUENT POSITION CHANGES, KEEP SKIN CLEAN AND DRY TO PREVENT SKIN BREAKDOWN AND MINIMIZE FRICTION AND SHEARING REPORT SIGNIFICANT CHANGES IN STATUS TO PHYSICIAN FOR EARLY INTERVENTION.] Future Scheduled Test URINARY MO LECULAR TESTING PROTOCOL UP TO 2 PRN RN/CREDIT INTERVIEWER/CENTER DIRECTOR LEAD TEACHER VISITS MAY BE PERFORMED FOR S/S OF UTI. RN TO ASSESS, CREDIT INTERVIEWER/CENTER DIRECTOR LEAD TEACHER TO OBSERVE INITIATION OF UTI PROTOCOL. RN/CENTER DIRECTOR LEAD TEACHER/CREDIT INTERVIEWER TO INSTRUCT PATIENT AND/OR CAREGIVER ON S/S OF UTI TO REPORT TO RN/CENTER DIRECTOR LEAD TEACHER/CREDIT INTERVIEWER IF NEW OR WORSENING SYMPTOMS. DRINK PLENTY OF WATER THROUGHOUT THE DAY TO MAINTAIN HYDRATION (UNLESS CONTRAINDICATED.) URINATE WHEN THE URGE IS FELT, DO NOT WAIT. WASH GENITALS DAILY. WIPE FROM FRONT TO BACK AFTER HAVING A BOWEL MOVEMENT. RN/CENTER DIRECTOR LEAD TEACHER/CREDIT INTERVIEWER TO OBTAIN MOLECULAR URINE TESTING BY OPTION 1 OR OPTION 2 (OPTION 1) RN/CENTER DIRECTOR LEAD TEACHER/CREDIT INTERVIEWER TO OBTAIN U/A WITH REFLEX TO UTI PANEL (MOLECULAR) VIA CLEAN CATCH URINE AND IF UNABLE TO OBTAIN MAY PERFORM AN IN AND OUT CATH. IF PATIENT HAS INDWELLING CATHETER MAY OBTAIN FROM SAMPLING PORT. (OPTION 2) RN/CENTER DIRECTOR LEAD TEACHER/CREDIT INTERVIEWER TO OBTAIN UTI PANEL (MOLECULAR) VIA SWAB COLLECTION METHOD FROM ADULT BRIEF/DIAPER OR PAD IF PATIENT IS INCONTINENT. NOTIFY PROVIDER OF RESULTS AND OBTAIN FURTHER ORDERS. [code = URINARY MOLECULAR TESTING PROTOCOL UP TO 2 PRN RN/CREDIT INTERVIEWER/CENTER DIRECTOR LEAD TEACHER VISITS MAY BE PERFORMED FOR S/S OF UTI. RN TO ASSESS, CREDIT INTERVIEWER/CENTER DIRECTOR LEAD TEACHER TO OBSERVE INITIATION OF UTI PROTOCOL. RN/CENTER DIRECTOR LEAD TEACHER/CREDIT INTERVIEWER TO INSTRUCT PATIENT AND/OR CAREGIVER ON S/S OF UTI TO REPORT TO RN/CENTER DIRECTOR LEAD TEACHER/CREDIT INTERVIEWER IF NEW OR WORSENING SYMPTOMS. DRINK PLENTY OF WATER THROUGHOUT THE DAY TO MAINTAIN HYDRATION (UNLESS CONTRAINDICATED.) URINATE WHEN THE URGE IS FELT, DO NOT WAIT. WASH GENITALS DAILY. WIPE FROM FRONT TO BACK AFTER HAVING A BOWEL MOVEMENT. RN/CENTER DIRECTOR LEAD TEACHER/CREDIT INTERVIEWER TO OBTAIN MOLECULAR URINE TESTING BY OPTION 1 OR OPTION 2 (OPTION 1) RN/CENTER DIRECTOR LEAD TEACHER/CREDIT INTERVIEWER TO OBTAIN U/A WITH REFLEX TO UTI PANEL (MOLECULAR) VIA CLEAN CATCH URINE AND IF UNABLE TO OBTAIN MAY PERFORM AN IN AND OUT CATH. IF PATIENT HAS INDWELLING CATHETER MAY OBTAIN FROM SAMPLING PORT. (OPTION 2) RN/CENTER DIRECTOR LEAD TEACHER/CREDIT INTERVIEWER TO OBTAIN UTI PANEL (MOLECULAR) VIA SWAB COLLECTION METHOD FROM ADULT BRIEF/DIAPER OR PAD IF PATIENT IS INCONTINENT. NOTIFY PROVIDER OF RESULTS AND OBTAIN FURTHER ORDERS.] Future Scheduled Test URINARY CU LTURE AND SENSITIVITY PROTOCOL UP TO 2 PRN RN/CREDIT INTERVIEWER/CENTER DIRECTOR LEAD TEACHER VISITS MAY BE PERFORMED FOR S/S OF UTI. RN TO ASSESS, CREDIT INTERVIEWER/CENTER DIRECTOR LEAD TEACHER TO OBSERVE INITIATION OF UTI PROTOCOL. RN/CENTER DIRECTOR LEAD TEACHER/CREDIT INTERVIEWER TO INSTRUCT PATIENT AND/OR CAREGIVER ON S/S OF UTI TO REPORT TO RN/CREDIT INTERVIEWER/CENTER DIRECTOR LEAD TEACHER IF NEW OR WORSENING SYMPTOMS. DRINK PLENTY OF WATER THROUGHOUT THE DAY TO MAINTAIN HYDRATION (UNLESS CONTRAINDICATED.) URINATE WHEN THE URGE IS FELT, DO NOT WAIT. WASH GENITALS DAILY. WIPE FROM FRONT TO BACK AFTER HAVING A BOWEL MOVEMENT. RN/CENTER DIRECTOR LEAD TEACHER/CREDIT INTERVIEWER TO OBTAIN UA WITH C/S VIA CLEAN CATCH URINE AND IF UNABLE TO OBTAIN MAY PERFORM AN IN AND OUT CATH. IF PATIENT HAS INDWELLING CATHETER MAY OBTAIN FROM SAMPLING PORT. NOTIFY PROVIDER OF RESULTS AND OBTAIN FURTHER ORDERS. [code = URINARY CULTURE AND SENSITIVITY PROTOCOL UP TO 2 PRN RN/CREDIT INTERVIEWER/CENTER DIRECTOR LEAD TEACHER VISITS MAY BE PERFORMED FOR S/S OF UTI. RN TO ASSESS, CREDIT INTERVIEWER/CENTER DIRECTOR LEAD TEACHER TO OBSERVE INITIATION OF UTI PROTOCOL. RN/CENTER DIRECTOR LEAD TEACHER/CREDIT INTERVIEWER TO INSTRUCT PATIENT AND/OR CAREGIVER ON S/S OF UTI TO REPORT TO RN/CREDIT INTERVIEWER/CENTER DIRECTOR LEAD TEACHER IF NEW OR WORSENING SYMPTOMS. DRINK PLENTY OF WATER THROUGHOUT THE DAY TO MAINTAIN HYDRATION (UNLESS CONTRAINDICATED.) URINATE WHEN THE URGE IS FELT, DO NOT WAIT. WASH GENITALS DAILY. WIPE FROM FRONT TO BACK AFTER HAVING A BOWEL MOVEMENT. RN/CENTER DIRECTOR LEAD TEACHER/CREDIT INTERVIEWER TO OBTAIN UA WITH C/S VIA CLEAN CATCH URINE AND IF UNABLE TO OBTAIN MAY PERFORM AN IN AND OUT CATH. IF PATIENT HAS INDWELLING CATHETER MAY OBTAIN FROM SAMPLING PORT. NOTIFY PROVIDER OF RESULTS AND OBTAIN FURTHER ORDERS.] Future Scheduled Test WOUND MOLE CULAR TESTING PROTOCOL UP TO 3 PRN RN/CREDIT INTERVIEWER VISITS MAY BE PERFORMED FOR S/S OF WOUND INFECTION/DETERIORATION/STAGNATION. RN TO ASSESS, CREDIT INTERVIEWER/CENTER DIRECTOR LEAD TEACHER TO OBSERVE AND INITIATE PROTOCOL. RN/CREDIT INTERVIEWER/CENTER DIRECTOR LEAD TEACHER TO INSTRUCT PATIENT AND/OR CAREGIVER ON S/S OF WOUND INFECTION/DETERIORATION/STAGNATION TO REPORT TO NURSE IF NEW OR WORSENING SYMPTOMS. RN/CREDIT INTERVIEWER/CENTER DIRECTOR LEAD TEACHER TO OBTAIN MOLECULAR WOUND TESTING VIA SWAB COLLECTION PER POLICY. [id number] NOTIFY PROVIDER OF RESULTS AND OBTAIN FURTHER ORDERS. [code = WOUND MOLECULAR TESTING PROTOCOL UP TO 3 PRN RN/CREDIT INTERVIEWER VISITS MAY BE PERFORMED FOR S/S OF WOUND INFECTION/DETERIORATION/STAGNATION. RN TO ASSESS, CREDIT INTERVIEWER/CENTER DIRECTOR LEAD TEACHER TO OBSERVE AND INITIATE PROTOCOL. RN/CREDIT INTERVIEWER/CENTER DIRECTOR LEAD TEACHER TO INSTRUCT PATIENT AND/OR CAREGIVER ON S/S OF WOUND INFECTION/DETERIORATION/STAGNATION TO REPORT TO NURSE IF NEW OR WORSENING SYMPTOMS. RN/CREDIT INTERVIEWER/CENTER DIRECTOR LEAD TEACHER TO OBTAIN MOLECULAR WOUND TESTING VIA SWAB COLLECTION PER POLICY. [id number] NOTIFY PROVIDER OF RESULTS AND OBTAIN FURTHER ORDERS.] Goal 2024-05-09 Patient Goal - WOUND TO HEAL Goal 2024-05-25 Patient Goal - WOUND TO HEAL Goal Patient Goal - WOUND TO HEAL Goal 2024-07-06 Patient Goal - WOUND TO HEAL Goal Provider Goal - A PLAN OF CARE WILL BE ESTABLISHED THAT MEETS THE PATIENTS NEEDS. PATIENT WILL DEMONSTRATE OXYGEN SATURATION WITHIN NORMAL LIMITS OR PATIENTS OPTIMAL LEVEL ESTABLISHED BY THE PHYSICIAN THROUGHOUT CARE. CHANGES TO CO-MORBID CONDITIONS AND ANY NEW CONDITIONS WILL BE IDENTIFIED AND REPORTED TO THE PHYSICIAN. Goal Provider Goal - PATIENT/CAREGIVER TO VERBALIZE, AND CONSISTENTLY DEMONSTRATE EFFECTIVE, SAFE MANAGEMENT OF MEDICATION INCLUDING KNOWLEDGE OF EFFECTIVENESS, POTENTIAL SIDE EFFECTS AND DRUG REACTIONS AND WHEN TO CONTACT THE APPROPRIATE CARE PROVIDER. PATIENT/CAREGIVER WILL BE ABLE TO VERBALIZE UNDERSTANDING OF MEDICATION REGIMEN AND ACCURATELY TAKE MEDICATIONS PRESCRIBED WITHOUT ADVERSE EFFECTS BY 4.25.25 Goal Provider Goal - PATIENT / CAREGIVER WILL VERBALIZE/DEMONSTRATE UNDERSTANDING OF MEASURES TO MANAGE ALTERED RESPIRATORY STATUS BY 4.25.25 Goal Provider Goal - PATIENT/CAREGIVER WILL VERBALIZE/DEMONSTRATE UNDERSTANDING OF FALL RISK FACTORS AND IMPLEMENT STRATEGIES TO MINIMIZE FALL RISK. PATIENT/CAREGIVER WILL VERBALIZE/DEMONSTRATE AN ABILITY TO ADHERE TO FALL REDUCTION SELF-MANAGEMENT AND LIFE-STYLE CHANGES BY 4.25.25 Goal Provider Goal - PATIENT / CAREGIVER WILL VERBALIZE/DEMONSTRATE UNDERSTANDING OF MEASURES TO MANAGE ALTERED GENITOURINARY STATUS BY 4.25.25 Goal Provider Goal - PATIENT/CAREGIVER WILL VERBALIZE/DEMONSTRATE UNDERSTANDING OF CARE AND MANAGEMENT OF URINARY INCONTINENCE BY 4.25.25 Goal Provider Goal - PATIENT/CAREGIVER WILL VERBALIZE/DEMONSTRATE UNDERSTANDING OF CARE AND MANAGEMENT OF URINARY TRACT INFECTION BY 4.25.25 Goal Provider Goal - PATIENT / CAREGIVER WILL VERBALIZE/DEMONSTRATE UNDERSTANDING OF MEASURES TO MANAGE ALTERED GASTROINTESTINAL STATUS BY 4.25.25 Goal Provider Goal - PATIENT/CAREGIVER WILL VERBALIZE/DEMONSTRATE UNDERSTANDING OF CARE AND MANAGEMENT OF ENTERAL TUBE FEEDING BY 4.25.25 Goal Provider Goal - PATIENT / CAREGIVER WILL VERBALIZE / DEMONSTRATE UNDERSTANDING OF PAIN CONTROL MEASURES BY 4.25.25 Goal Provider Goal - PATIENT / CAREGIVER WILL VERBALIZE/DEMONSTRATE ABILITY TO PERFORM WOUND CARE. WOUND STATUS WILL IMPROVE EVIDENCED BY A DECREASE IN SIZE, DRAINAGE, ABSENCE OF INFECTION, AND DECREASED PAIN BY 4.25.25 Goal Provider Goal - PATIENT WILL UTILIZE PRN VISITS TO PREVENT HOSPITALIZATION BY 4.25.25 Goal Provider Goal - PATIENT/CAREGIVER WILL VERBALIZE UNDERSTANDING OF SIGNS AND SYMPTOMS THAT PUT THE PATIENT AT RISK FOR HOSPITALIZATION /EMERGENCY ROOM VISITS, WHEN TO NOTIFY NURSE/PHYSICIAN OF COMPLICATIONS/DECLINE AND WHEN TO CALL 911. Goal Provider Goal - PATIENT / CAREGIVER WILL VERBALIZE/DEMONSTRATE UNDERSTANDING OF MEASURES TO MANAGE ALTERED CARDIOVASCULAR STATUS BY 4.25.25 Goal Provider Goal - PATIENT / CAREGIVER WILL VERBALIZE/DEMONSTRATE AN ABILITY TO ADHERE TO SELF-MANAGEMENT OF HTN TO MINIMIZE COMPLICATIONS AND AVOID HOSPITALIZATION BY 4.25.25 Goal Provider Goal - CHANGES IN SKIN [...] PROMOTE SKIN INTEGRITY AND PREVENT INJURY BY 4.25.25 Goal Provider Goal - PATIENT WILL DEMONSTRATE IMPROVEMENT IN S/S OF UTI TO AVOID HOSPITALIZATION. Goal Provider Goal - PATIENT WILL DEMONSTRATE IMPROVEMENT IN S/S OF UTI TO AVOID HOSPITALIZATION. Goal Provider Goal - PATIENT WILL DEMONSTRATE IMPROVEMENT IN S/S OF WOUND INFECTION/DETERIORATION/STAGNATION TO AVOID HOSPITALIZATION. Encounters Start Date/Time End Date/Time Encounter Type Admission Type Attending [facility] Care Department Encounter ID Discharge Date Discharge Status Discharge Condition Discharge Reason Percent Goals Met 2024-03-13 00:00:00 2024-09-08 00:00:00 Outpatient RECERTIFIC ATION RADHA MAI [facility] ED [id number] 48.00
--- OUTSIDE RECORDS SUMMARY | 2024-08-23 06:08 | XMS_ITS | Encounter Summary ---
Author Organization [facility] Address [address] [place] [address] Care Team Providers Care Spring Encaser Name Role Phone Pepe Martel MD Primary Care Provider [phone] Encounter Details Date Type Department Care Team (Late st Contact Info) Description 12/15/2021 Lab Requisition [facility] [address] [place] [address] Alverto Virgen MD [address] [place] [address] [place] [address] Social History Tobacco Use Types Packs/Day Years [...] % 12/15/2021 10:43 AM CDT [facility] Monocytes % 11.5 5.0 - 13.0 % 12/15/2021 10:43 AM CDT [facility] Eosinophils % 3.5 0.0 - 6.0 % 12/15/2021 10:43 AM CDT [facility] Basophils % 0.4 0.0 - 2.0 % 12/15/2021 10:43 AM CDT [facility] Immature Granulocytes 0.3 0 - 1 % 12/15/2021 10:43 AM CDT [facility] Neutrophil Absolute 4.02 2.01 - 7.14 x10E9/L 12/15/2021 10:43 AM CDT [facility] Lymphocytes Absolute 1.92 1.07 - 3.94 x10E9/L 12/15/2021 10:43 AM CDT [facility] Monocytes Absolute 0.81 0.26 - 1.07 x10E9/L 12/15/2021 10:43 AM CDT [facility] Eosinophils Absolute 0.25 0 - 0.47 x10E9/L 12/15/2021 10:43 AM CDT [facility] Basophils Absolute 0.03 0 - 0.08 x10E9/L 12/15/2021 10:43 AM CDT [facility] Immature Granulocytes Absolute 0.02 0.00 - 0.06 x10E9/L 12/15/2021 10:43 AM CDT [facility] nRBC Auto 0 /100 WBC 12/15/2021 10:43 AM T [facility] Blood BLOOD SPECIMEN / Unknown Venipuncture / Unknown 12/15/2021 3:20 AM CDT 12/15/2021 8:21 AM CDT Alverto Virgen MD LAB - HEMATOLOGY ORDERABLES [facility] [address] [place] [address] * (ABNORMAL) COMPREHENSIVE METABOLIC PANEL (12/15/2021 3:20 AM CDT) [facility] Glucose 93 70 - 105 mg/dL 12/15/2021 11:07 AM CDT [facility] Sodium 140 136 - 145 mmol/L 12/15/2021 11:07 AM [facility] Potassium 5.3(H) 3.5 - 5.1 mmol/L 12/15/2021 11:07 AM [facility] Chloride 101 98 - 107 mmol/L 12/15/2021 11:07 AM [facility] CO2 25 23 - 31 mmol/L 12/15/2021 11:07 AM [facility] Calcium 10.0 8.4 - 10.4 mg/dL 12/15/2021 11:07 AM [facility] Anion Gap 14 8 - 18 mmol/L 12/15/2021 11:07 AM [facility] BUN 30(H) 8.9 - 20.6 mg/dL 12/15/2021 11:07 AM [facility] Creatinine 0.99 0.72 - 1.25 mg/dL 12/15/2021 11:07 AM [facility] Alkaline Phosphatase 131 40 - 150 U/L 12/15/2021 11:07 AM [facility] ALT 18 0 - 61 U/L 12/15/2021 11:07 AM [facility] AST 12 5 - 34 U/L 12/15/2021 11:07 AM [facility] Protein Total 7.6 6.4 - 8.3 gm/dL 12/15/2021 11:07 AM [facility] Albumin 3.7 3.5 - 5.2 gm/dL 12/15/2021 11:07 AM [facility] Bilirubin Total 0.3 0.2 - 1.2 mg/dL 12/15/2021 11:07 AM [facility] eGFR by CKD-EPI >90 >=90 mL/min/1.7 3 m2 12/15/2021 11:07 AM [facility] Blood BLOOD SPECIMEN / Unknown Venipuncture / Unknown 12/15/2021 3:20 AM CDT 12/15/2021 8:21 AM T Alverto Virgen MD LAB - CHEMISTRY O RDERABLES [facility] [address] [place] [address] documented in this encounter Visit Diagnoses Not on filedocumented in this encounter Care Teams Spring Encaser Relationship Specialty Start Date End Date Pepe Martel MD [address] [place] [id number] PCP - General 08/14/16 documented as of this encounter
--- OUTSIDE RECORDS SUMMARY | 2024-08-23 06:08 | XMS_ITS | Encounter Summary ---
Author Organization [facility] Address [address] [place] [address] Care Team Providers Care Air And Hydronic Balancing Technician Name Role Phone Pepe Martel MD Primary Care Provider [phone] Encounter Details Date Type Department Care Team (Late st Contact Info) Description 09/22/2021 Lab Requisition [facility] [address] [place] [address] [place] [address] [place] [address] Social History Tobacco Use Types Packs/Day Years [...] % 09/22/2021 8:49 AM CDT [facility] Monocytes % 8.7 5.0 - 13.0 % 09/22/2021 8:49 AM CDT [facility] Eosinophils % 3.8 0.0 - 6.0 % 09/22/2021 8:49 AM CDT [facility] Basophils % 0.5 0.0 - 2.0 % 09/22/2021 8:49 AM CDT [facility] Immature Granulocytes 0.3 0 - 1 % 09/22/2021 8:49 AM CDT [facility] Neutrophil Absolute 4.46 2.01 - 7.14 x10E9/L 09/22/2021 8:49 AM CDT [facility] Lymphocytes Absolute 1.91 1.07 - 3.94 x10E9/L 09/22/2021 8:49 AM CDT [facility] Monocytes Absolute 0.64 0.26 - 1.07 x10E9/L 09/22/2021 8:49 AM CDT [facility] Eosinophils Absolute 0.28 0 - 0.47 x10E9/L 09/22/2021 8:49 AM CDT [facility] Basophils Absolute 0.04 0 - 0.08 x10E9/L 09/22/2021 8:49 AM CDT [facility] Immature Granulocytes Absolute 0.02 0.00 - 0.06 x10E9/L 09/22/2021 8:49 AM CDT [facility] nRBC Auto 0 /100 WBC 09/22/2021 8:49 AM T [facility] Blood BLOOD SPECIMEN / Unknown Venipuncture / Unknown 09/22/2021 3:40 AM CDT 09/22/2021 8:29 AM CDT Vinicio Quintanilla MD LAB - HEMATOLOGY ORD ERABLES [facility] [address] [place] [address] * (ABNORMAL) COMPREHENSIVE METABOLIC PANEL (09/22/2021 3:40 AM CDT) [facility] Glucose 118(H) 70 - 105 mg/dL 09/22/2021 9:06 AM CDT [facility] Sodium 146(H) 136 - 145 mmol/L 09/22/2021 9:06 AM [facility] Potassium 4.6 3.5 - 5.1 mmol/L 09/22/2021 9:06 AM [facility] Chloride 106 98 - 107 mmol/L 09/22/2021 9:06 AM [facility] CO2 27 23 - 31 mmol/L 09/22/2021 9:06 AM [facility] Calcium 10.5(H) 8.4 - 10.4 mg/dL 09/22/2021 9:06 AM [facility] Anion Gap 13 8 - 18 mmol/L 09/22/2021 9:06 AM [facility] BUN 34(H) 8.9 - 20.6 mg/dL 09/22/2021 9:06 AM [facility] Creatinine 1.04 0.72 - 1.25 mg/dL 09/22/2021 9:06 AM [facility] Alkaline Phosphatase 161(H) 40 - 150 U/L 09/22/2021 9:06 AM [facility] ALT 27 0 - 61 U/L 09/22/2021 9:06 AM [facility] AST 13 5 - 34 U/L 09/22/2021 9:06 AM [facility] Protein Total 7.9 6.4 - 8.3 gm/dL 09/22/2021 9:06 AM [facility] Albumin 3.8 3.5 - 5.2 gm/dL 09/22/2021 9:06 AM [facility] Bilirubin Total 0.3 0.2 - 1.2 mg/dL 09/22/2021 9:06 AM [facility] eGFR by CKD-EPI >90 >=90 mL/min/1.7 3 m2 09/22/2021 9:06 AM [facility] Blood BLOOD SPECIMEN / Unknown Venipuncture / Unknown 09/22/2021 3:40 AM CDT 09/22/2021 8:29 AM T [facility] - 09/22/2021 9:06 AM [facility] eGFR result was calculated using the updated CKD-EPI Creatinine Equations (2020). Prior to go live 2021 the eGFR was calculated using the MDRD calculation. Please note Reference Range change. Vinicio Quintanilla MD LAB - CHEMISTRY JOSE ENRIQUE VELA [facility] Organization Address City/State/ZIP Co de Phone Number [facility] [address] [place] [address] documented in this encounter Visit Diagnoses Not on filedocumented in this encounter Care Teams Air And Hydronic Balancing Technician Relationship Specialty Start Date End Date Pepe Martel MD [address] [place] [id number] PCP - General 08/14/16 documented as of this encounter
--- OUTSIDE RECORDS SUMMARY | 2024-08-23 06:08 | XMS_ITS | Encounter Summary ---
Author Organization [facility] Address [address] [place] [address] Care Team Providers Care Trade Economist Name Role Phone Pepe Martel MD Primary Care Provider [phone] Encounter Details Date Type Department Care Team (Late st Contact Info) Description 10/02/2021 Lab Requisition [facility] [address] [place] [address] [place] [address] [place] [address] Social History Tobacco Use Types Packs/Day Years [...] - 10.7 x10E9/L 10/02/2021 10:01 AM CDT [facility] WBC Corrected 10/02/2021 10:01 AM CDT [facility] RBC 4.49 3.80 - 5.40 x10E12/L 10/02/2021 10:01 AM CDT [facility] Hemoglobin 12.2 12.0 - 17.6 gm/dL 10/02/2021 10:01 AM CDT [facility] Hematocrit 40.1 35.2 - 51.7 % 10/02/2021 10:01 AM CDT [facility] MCV 89.3 80.7 - 98.3 fl 10/02/2021 10:01 AM CDT [facility] MCH 27.2 26.7 - 34.0 pg 10/02/2021 10:01 AM CDT [facility] MCHC 30.4(L) 30.8 - 35.9 gm/dL 10/02/2021 10:01 AM CDT [facility] Platelet Count 442(H) 153 - 416 x10E9/L 10/02/2021 10:01 AM CDT [facility] RDW-CV 14.1 12.1 - 14.9 % 10/02/2021 10:01 AM CDT [facility] MPV 10.8 9.4 - 12.9 fl 10/02/2021 10:01 AM CDT [facility] Neutrophils % 60.1 44.0 - 73.0 % 10/02/2021 10:01 AM CDT [facility] Lymphocytes % 26.9 20.0 - 43.0 % 10/02/2021 10:01 AM CDT [facility] Monocytes % 9.3 5.0 - 13.0 % 10/02/2021 10:01 AM CDT [facility] Eosinophils % 3.0 0.0 - 6.0 % 10/02/2021 10:01 AM CDT [facility] Basophils % 0.5 0.0 - 2.0 % 10/02/2021 10:01 AM T [facility] Immature Granulocytes 0.2 0 - 1 % 10/02/2021 10:01 AM CDT [facility] Neutrophil Absolute 4.01 2.01 - 7.14 x10E9/L 10/02/2021 10:01 AM T [facility] Lymphocytes Absolute 1.79 1.07 - 3.94 x10E9/L 10/02/2021 10:01 AM CDT [facility] Monocytes Absolute 0.62 0.26 - 1.07 x10E9/L 10/02/2021 10:01 AM T [facility] Eosinophils Absolute 0.20 0 - 0.47 x10E9/L 10/02/2021 10:01 AM T [facility] Basophils Absolute 0.03 0 - 0.08 x10E9/L 10/02/2021 10:01 AM T [facility] Immature Granulocytes Absolute 0.01 0.00 - 0.06 x10E9/L 10/02/2021 10:01 AM T [facility] nRBC Auto 0 /100 WBC 10/02/2021 10:01 AM [facility] Blood BLOOD SPECIMEN / Unknown Venipuncture / Unknown 10/02/2021 3:00 AM CDT 10/02/2021 9:39 AM CDT Vinicio Quintanilla MD LAB - HEMATOLOGY ORD ERABLES [facility] [address] [place] [address] * (ABNORMAL) COMPREHENSIVE METABOLIC PANEL (10/02/2021 3:00 AM CDT) [facility] Glucose 99 70 - 105 mg/dL 10/02/2021 10:26 AM [facility] Sodium 145 136 - 145 mmol/L 10/02/2021 10:26 AM [facility] Potassium 4.9 3.5 - 5.1 mmol/L 10/02/2021 10:26 AM [facility] Chloride 105 98 - 107 mmol/L 10/02/2021 10:26 AM [facility] CO2 26 23 - 31 mmol/L 10/02/2021 10:26 AM [facility] Calcium 10.6(H) 8.4 - 10.4 mg/dL 10/02/2021 10:26 AM [facility] Anion Gap 14 8 - 18 mmol/L 10/02/2021 10:26 AM [facility] BUN 32(H) 8.9 - 20.6 mg/dL 10/02/2021 10:26 AM [facility] Creatinine 1.07 0.72 - 1.25 mg/dL 10/02/2021 10:26 AM [facility] Alkaline Phosphatase 165(H) 40 - 150 U/L 10/02/2021 10:26 AM [facility] ALT 27 0 - 61 U/L 10/02/2021 10:26 AM [facility] AST 18 5 - 34 U/L 10/02/2021 10:26 AM [facility] Protein Total 8.2 6.4 - 8.3 gm/dL 10/02/2021 10:26 AM [facility] Albumin 3.8 3.5 - 5.2 gm/dL 10/02/2021 10:26 AM [facility] Bilirubin Total 0.4 0.2 - 1.2 mg/dL 10/02/2021 10:26 AM [facility] eGFR by CKD-EPI >90 >=90 mL/min/1.7 3 m2 10/02/2021 10:26 AM [facility] Blood BLOOD SPECIMEN / Unknown Venipuncture / Unknown 10/02/2021 3:00 AM CDT 10/02/2021 9:39 AM T Vinicio Quintanilla MD LAB - CHEMISTRY JOSE ENRIQUE VELA [facility] Organization Address City/State/ZIP Co de Phone Number [facility] [address] [place] [address] documented in this encounter Visit Diagnoses Not on filedocumented in this encounter Care Teams Trade Economist Relationship Specialty Start Date End Date Pepe Martel MD [address] [place] [address] [address] [place] [address] PCP - General 08/14/16 documented as of this encounter
--- OUTSIDE RECORDS SUMMARY | 2024-08-23 06:08 | XMS_ITS | Encounter Summary ---
Author Organization [facility] Address [address] [facility] [place] [address] Care Team Providers Care Torch Straightener Name Role Phone Pepe Martel MD Primary Care Provider [phone] Encounter Details Date Type Department Care Team (Late st Contact Info) Description 03/17/2021 Lab Requisition [facility] [address] [place] [address] Andrés Ferro MD [address] [place] [address] DR V[address]ER [address] [place] [phone] Social History Tobacco Use Types Packs/Day Years [...] - 43.0 % 03/17/2021 10:38 AM CDT [facility] Monocytes % 9.7 5.0 - 13.0 % 03/17/2021 10:38 AM CDT [facility] Eosinophils % 4.2 0.0 - 6.0 % 03/17/2021 10:38 AM CDT [facility] Basophils % 0.4 0.0 - 2.0 % 03/17/2021 10:38 AM CDT [facility] Immature Granulocytes 0.8 0 - 1 % 03/17/2021 10:38 AM CDT [facility] Neutrophil Absolute 10.31(H) 2.01 - 7.14 x10E9/L 03/17/2021 10:38 AM CDT [facility] Lymphocytes Absolute 1.49 1.07 - 3.94 x10E9/L 03/17/2021 10:38 AM CDT [facility] Monocytes Absolute 1.35(H) 0.26 - 1.07 x10E9/L 03/17/2021 10:38 AM CDT [facility] Eosinophils Absolute 0.58(H) 0 - 0.47 x10E9/L 03/17/2021 10:38 AM CDT [facility] Basophils Absolute 0.05 0 - 0.08 x10E9/L 03/17/2021 10:38 AM CDT [facility] Immature Granulocytes Absolute 0.11(H) 0.00 - 0.06 x10E9/L 03/17/2021 10:38 AM CDT [facility] nRBC Auto 0 /100 WBC 03/17/2021 10:38 AM CDT [facility] Blood BLOOD SPECIMEN / Unknown Venipuncture / Unknown 03/17/2021 3:15 AM CDT 03/17/2021 10:09 AM CDT Andrés Ferro MD LAB - HEMATOLOGY O RDERABLES [facility] [address] [place] [address] * (ABNORMAL) COMPREHENSIVE METABOLIC PANEL (03/17/2021 3:15 AM CDT) [facility] Glucose 144(H) 70 - 105 mg/dL 03/17/2021 11:05 AM [facility] Sodium 136 136 - 145 mmol/L 03/17/2021 11:05 AM [facility] Potassium 4.7 3.5 - 5.1 mmol/L 03/17/2021 11:05 AM [facility] Chloride 103 98 - 107 mmol/L 03/17/2021 11:05 AM [facility] CO2 20(L) 23 - 31 mmol/L 03/17/2021 11:05 AM [facility] Calcium 8.4 8.4 - 10.4 mg/dL 03/17/2021 11:05 AM [facility] Anion Gap 13 8 - 18 mmol/L 03/17/2021 11:05 AM [facility] BUN 30(H) 8.9 - 20.6 mg/dL 03/17/2021 11:05 AM [facility] Creatinine 1.30(H) 0.72 - 1.25 mg/dL 03/17/2021 11:05 AM [facility] Alkaline Phosphatase 210(H) 40 - 150 U/L 03/17/2021 11:05 AM [facility] ALT 31 0 - 61 U/L 03/17/2021 11:05 AM [facility] AST 33 5 - 34 U/L 03/17/2021 11:05 AM [facility] Protein Total 7.5 6.4 - 8.3 gm/dL 03/17/2021 11:05 AM [facility] Albumin 2.7(L) 3.5 - 5.2 gm/dL 03/17/2021 11:05 AM [facility] Bilirubin Total 0.3 0.2 - 1.2 mg/dL 03/17/2021 11:05 AM [facility] eGFR by MDRD >60 >60 mL/min/1.7 3m2 03/17/2021 11:05 AM [facility] eGFR by MDRD >60 >60 mL/min/1.7 3m2 03/17/2021 11:05 AM [facility] Blood BLOOD SPECIMEN / Unknown Venipuncture / Unknown 03/17/2021 3:15 AM CDT 03/17/2021 10:09 AM CDT Andrés Ferro MD LAB - CHEMISTRY OR DERABLES [facility] [address] [place] [address] documented in this encounter Visit Diagnoses Not on filedocumented in this encounter Care Teams Torch Straightener Relationship Specialty Start Date End Date Pepe Martel MD [address] [place] [id number] PCP - General 08/14/16 documented as of this encounter
--- OUTSIDE RECORDS SUMMARY | 2024-08-23 06:08 | XMS_ITS | Encounter Summary ---
Author Organization [facility] Health Address [address] [facility] [place] [address] Care Team Providers Care Community Engagement Leader Name Role Phone Pepe Martel MD Primary Care Provider [phone] Encounter Details Date Type Department Care Team (Late st Contact Info) Description 04/07/2021 Lab Requisition [facility] [address] [place] [address] Lamberto De La Cruz MD [address] [facility] [address] [place] [address] Social History Tobacco Use Types [...] W AUTO DIFFERENTIAL STAT 04/07/2021 3:00 AM RETAIL INTERIOR DESIGNER COMPREHENSIVE METABOLIC PANEL STAT 04/07/2021 3:00 AM RETAIL INTERIOR DESIGNER VANCOMYCIN LEVEL TROUGH STAT 04/07/2021 3:00 AM RETAIL INTERIOR DESIGNER documented in this encounter Results * VANCOMYCIN LEVEL TROUGH (04/07/2021 3:00 AM RETAIL INTERIOR DESIGNER) Pathologist [facility] Vancomycin Trough 11.5 10.0 - 20.0 ug/mL 04/07/2021 9:29 AM RETAIL INTERIOR DESIGNER [facility] Blood BLOOD SPECIMEN / Unknown Venipuncture / Unknown 04/07/2021 3:00 AM RETAIL INTERIOR DESIGNER 04/07/2021 8:53 AM RETAIL INTERIOR DESIGNER Lamberto De La Cruz MD LAB - CHEMISTRY JOSE ENRIQUE VELA [facility] Organization Address City/State/[facility] Co de Phone Number [facility] [address] [place] [address] * (ABNORMAL) CBC WITH DIFFERENTIAL (04/07/2021 3:00 AM RETAIL INTERIOR DESIGNER) [facility] WBC 6.8 4.4 - 10.7 x10E9/L 04/07/2021 9:20 AM RETAIL INTERIOR DESIGNER [facility] WBC Corrected 04/07/2021 9:20 AM RETAIL INTERIOR DESIGNER [facility] RBC 3.30(L) 3.80 - 5.40 x10E12/L 04/07/2021 9:20 AM RETAIL INTERIOR DESIGNER [facility] Hemoglobin 9.3(L) 12.0 - 17.6 gm/dL 04/07/2021 9:20 AM RETAIL INTERIOR DESIGNER [facility] Hematocrit 30.2(L) 35.2 - 51.7 % 04/07/2021 9:20 AM RETAIL INTERIOR DESIGNER [facility] MCV 91.5 80.7 - 98.3 fl 04/07/2021 9:20 AM RETAIL INTERIOR DESIGNER [facility] MCH 28.2 26.7 - 34.0 pg 04/07/2021 9:[address] [facility] MCHC 30.8 30.8 - 35.9 gm/dL 04/07/2021 9:[address] [facility] Platelet Count 399 153 - 416 x10E9/L 04/07/2021 9:[address] [facility] RDW-CV 15.2(H) 12.1 - 14.9 % 04/07/2021 9:[address] [facility] MPV 10.0 9.4 - 12.9 fl 04/07/2021 9:[address] [facility] Neutrophils % 62.6 44.0 - 73.0 % 04/07/2021 9:[address] [facility] Lymphocytes % 16.3(L) 20.0 - 43.0 % 04/07/2021 9:[address] [facility] Monocytes % 12.5 5.0 - 13.0 % 04/07/2021 9:[address] [facility] Eosinophils % 7.9(H) 0.0 - 6.0 % 04/07/2021 9:[address] [facility] Basophils % 0.6 0.0 - 2.0 % 04/07/2021 9:[address] [facility] Immature Granulocytes 0.1 0 - 1 % 04/07/2021 9:[address] [facility] Neutrophil Absolute 4.25 2.01 - 7.14 x10E9/L 04/07/2021 9:[address] [facility] Lymphocytes Absolute 1.11 1.07 - 3.94 x10E9/L 04/07/2021 9:[address] [facility] Monocytes Absolute 0.85 0.26 - 1.07 x10E9/L 04/07/2021 9:[address] [facility] Eosinophils Absolute 0.54(H) 0 - 0.47 x10E9/L 04/07/2021 9:[address] [facility] Basophils Absolute 0.04 0 - 0.08 x10E9/L 04/07/2021 9:[address] [facility] Immature Granulocytes Absolute 0.01 0.00 - 0.06 x10E9/L 04/07/2021 9:[address] [facility] nRBC Auto 0 /100 WBC 04/07/2021 9:[address] [facility] Blood BLOOD SPECIMEN / Unknown Venipuncture / Unknown 04/07/2021 3:00 AM RETAIL INTERIOR DESIGNER 04/07/2021 8:[address] [facility] Lamberto De La Cruz MD LAB - HEMATOLOGY ORD ERABLES [facility] [address] [place], [place] [address] * (ABNORMAL) COMPREHENSIVE METABOLIC PANEL (04/07/2021 3:00 AM RETAIL INTERIOR DESIGNER) Glucose 100 70 - 105 mg/dL 04/07/2021 9:[address] [facility] Sodium 136 136 - 145 mmol/L 04/07/2021 9:[address] [facility] Potassium 4.5 3.5 - 5.1 mmol/L 04/07/2021 9:[address] [facility] Chloride 104 98 - 107 mmol/L 04/07/2021 9:[address] [facility] CO2 20(L) 23 - 31 mmol/L 04/07/2021 9:[address] [facility] Calcium 8.8 8.4 - 10.4 mg/dL 04/07/2021 9:[address] [facility] Anion Gap 12 8 - 18 mmol/L 04/07/2021 9:[address] [facility] BUN 23(H) 8.9 - 20.6 mg/dL 04/07/2021 9:[address] [facility] Creatinine 0.76 0.72 - 1.25 mg/dL 04/07/2021 9:[address] [facility] Alkaline Phosphatase 95 40 - 150 U/L 04/07/2021 9:[address] [facility] ALT 18 0 - 61 U/L 04/07/2021 9:[address] [facility] AST 22 5 - 34 U/L 04/07/2021 9:[address] [facility] Protein Total 7.0 6.4 - 8.3 gm/dL 04/07/2021 9:[address] [facility] Albumin 3.1(L) 3.5 - 5.2 gm/dL 04/07/2021 9:32 AM RETAIL INTERIOR DESIGNER [facility] Bilirubin Total 0.2 0.2 - 1.2 mg/dL 04/07/2021 9:32 AM RETAIL INTERIOR DESIGNER [facility] eGFR by MDRD >60 >60 mL/min/1.7 3m2 04/07/2021 9:32 AM RETAIL INTERIOR DESIGNER [facility] eGFR by MDRD >60 >60 mL/min/1.7 3m2 04/07/2021 9:32 AM RETAIL INTERIOR DESIGNER [facility] Blood BLOOD SPECIMEN / Unknown Venipuncture / Unknown 04/07/2021 3:00 AM RETAIL INTERIOR DESIGNER 04/07/2021 8:51 AM RETAIL INTERIOR DESIGNER Lamberto De La Cruz MD LAB - CHEMISTRY JOSE ENRIQUE VELA [facility] Organization Address City/State/[facility] Co de Phone Number [facility] [address] [place], [place] [id number] documented in this encounter Visit Diagnoses Not on filedocumented in this encounter Care Teams Community Engagement Leader Relationship Specialty Start Date End Date Pepe Martel MD [address] [place] [address] [address] [place] [address] PCP - General 08/14/16 documented as of this encounter
--- OUTSIDE RECORDS SUMMARY | 2024-08-23 06:08 | XMS_ITS | Clinical Summary ---
Author Organization 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 Gender Identity Not on file Sexual Orientation Not on file Obstetrics History Last Filed Vital Signs Vital Sign Reading Time Taken Comments Blood Pressure 169/100 02/01/2022 9:35 AM CDT Yousef aware and ok with transport Pulse 100 02/01/2022 9:35 AM CDT Temperature 37.2 C (99 F) 01/31/2022 11:33 PM CDT Respiratory Rate 16 02/01/2022 9:35 AM CDT Oxygen Saturation 92% 02/01/2022 9:3 5 AM CDT Inhaled Oxygen Concentration - - Weight 100 kg (220 lb 7.4 oz) 01/31/2022 11:33 PM CDT Height 170.2 cm (5' 7 ) 06/01/2016 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 Current interpretive data was last revised on 19. Hep B core IgM Nonreactive Nonreactive [facility] Comment: Interpretive Data If HepB Core IgM Ab is reported as Equivocal, a new sample should be drawn in two weeks for testing. Current interpretive data was last revised on 19. Hep C Ab Reactive(A) Nonreactive [facility] Comment:Positive for HCV ant ibodies. This may represent current or past HCV infection. Supplemental molecular testing will be automatically performed to determine current infection status in accordance with current CDC screening recommendations. 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
--- OUTSIDE RECORDS SUMMARY | 2024-08-23 06:08 | XMS_ITS | Encounter Summary ---
Author Organization [facility] Address [address] [facility] [place] [address] Care Team Providers Care Used Car Renovator Name Role Phone Pepe Martel MD Primary Care Provider [phone] Encounter Details Date Type Department Care Team (Late st Contact Info) Description 03/13/2021 Lab Requisition [facility] [address] [place] [address] Andrés Ferro MD [address] [place] [address] DR VARNER [address] [place] [address] Social History Tobacco Use Types Packs/Day Years [...] - 38.4 sec 03/13/2021 3:32 PM CDT [facility] Blood BLOOD SPECIMEN / Unknown Venipuncture / Unknown 03/13/2021 4:00 AM CDT 03/13/2021 2:55 PM CDT Narrative [facility] - 03/13/2021 3:32 PM CDT Heparin Therapeutic Range for PTT: 69.0 - 110.0 seconds. Andrés Ferro MD LAB - COAGULATION ORDERABLES Performing Organization Address City/State/[facility] Co de Phone Number [facility] [address] [place] [address] * PT-INR (03/13/2021 4:00 AM CDT) PT 14.4 12.1 - 14.8 sec 03/13/2021 3:31 PM CDT [facility] INR 1.1 0.9 - 1.1 03/13/2021 3:31 PM CDT [facility] Blood BLOOD SPECIMEN / Unknown Venipuncture / Unknown 03/13/2021 4:00 AM CDT 03/13/2021 2:55 PM CDT Narrative [facility] - 03/13/2021 3:31 PM CDT Conventional Warfarin Anticoagulant Therapy: INR Reference Range: 2.0-3.0 Intensive Warfarin Anticoagulant Therapy: INR Reference Range: 2.5-3.5 Andrés Ferro MD LAB - COAGULATION ORDERABLES [facility] [address] [place] [address] * (ABNORMAL) CBC WITH DIFFERENTIAL (03/13/2021 4:00 AM CDT) WBC 19.7(H) 4.4 - 10.7 x10E9/L 03/13/2021 3:24 PM CDT [facility] WBC Corrected 03/13/2021 3:24 PM CDT [facility] RBC 3.53(L) 3.80 - 5.40 x10E12/L 03/13/2021 3:24 PM CDT [facility] Hemoglobin 9.6(L) 12.0 - 17.6 gm/dL 03/13/2021 3:24 PM CDT [facility] Hematocrit 32.2(L) 35.2 - 51.7 % 03/13/2021 3:24 PM CDT [facility] MCV 91.2 80.7 - 98.3 fl 03/13/2021 3:24 PM CDT [facility] MCH 27.2 26.7 - 34.0 pg 03/13/2021 3:24 PM CDT [facility] MCHC 29.8(L) 30.8 - 35.9 gm/dL 03/13/2021 3:24 PM CDT [facility] Platelet Count 546(H) 153 - 416 x10E9/L 03/13/2021 3:24 PM CDT [facility] RDW-CV 13.9 12.1 - 14.9 % 03/13/2021 3:24 PM CDT [facility] MPV 11.5 9.4 - 12.9 fl 03/13/2021 3:24 PM CDT [facility] Neutrophils % 78.6(H) 44.0 - 73.0 % 03/13/2021 3:24 PM CDT [facility] Lymphocytes % 8.1(L) 20.0 - 43.0 % 03/13/2021 3:24 PM CDT [facility] Monocytes % 7.3 5.0 - 13.0 % 03/13/2021 3:24 PM CDT [facility] Eosinophils % 3.8 0.0 - 6.0 % 03/13/2021 3:24 PM CDT [facility] Basophils % 0.4 0.0 - 2.0 % 03/13/2021 3:24 PM CDT [facility] Immature Granulocytes 1.8(H) 0 - 1 % 03/13/2021 3:24 PM CDT [facility] Neutrophil Absolute 15.46(H) 2.01 - 7.14 x10E9/L 03/13/2021 3:24 PM CDT [facility] Lymphocytes Absolute 1.60 1.07 - 3.94 x10E9/L 03/13/2021 3:24 PM CDT [facility] Monocytes Absolute 1.44(H) 0.26 - 1.07 x10E9/L 03/13/2021 3:24 PM CDT [facility] Eosinophils Absolute 0.75(H) 0 - 0.47 x10E9/L 03/13/2021 3:24 PM CDT [facility] Basophils Absolute 0.07 0 - 0.08 x10E9/L 03/13/2021 3:24 PM CDT [facility] Immature Granulocytes Absolute 0.35(H) 0.00 - 0.06 x10E9/L 03/13/2021 3:24 PM CDT [facility] nRBC Auto 0 /100 WBC 03/13/2021 3:24 PM CDT [facility] Blood BLOOD SPECIMEN / Unknown Venipuncture / Unknown 03/13/2021 4:00 AM CDT 03/13/2021 2:55 PM CDT Andrés Ferro MD LAB - HEMATOLOGY O RDERABLES [facility] [address] [place] [address] * (ABNORMAL) COMPREHENSIVE METABOLIC PANEL (03/13/2021 4:00 AM CDT) [facility] Glucose 104 70 - 105 mg/dL 03/13/2021 3:44 PM CDT [facility] Sodium 141 136 - 145 mmol/L 03/13/2021 3:44 PM CDT [facility] Potassium 5.4(H) 3.5 - 5.1 mmol/L 03/13/2021 3:44 PM CDT [facility] Chloride 106 98 - 107 mmol/L 03/13/2021 3:44 PM CDT [facility] CO2 18(L) 23 - 31 mmol/L 03/13/2021 3:44 PM CDT [facility] Calcium 8.7 8.4 - 10.4 mg/dL 03/13/2021 3:44 PM CDT [facility] Anion Gap 17 8 - 18 mmol/L 03/13/2021 3:44 PM CDT [facility] BUN 37(H) 8.9 - 20.6 mg/dL 03/13/2021 3:44 PM CDT [facility] Creatinine 1.43(H) 0.72 - 1.25 mg/dL 03/13/2021 3:44 PM CDT [facility] Alkaline Phosphatase 301(H) 40 - 150 U/L 03/13/2021 3:44 PM CDT [facility] ALT 43 0 - 61 U/L 03/13/2021 3:44 PM CDT [facility] AST 43(H) 5 - 34 U/L 03/13/2021 3:44 PM CDT [facility] Protein Total 7.8 6.4 - 8.3 gm/dL 03/13/2021 3:44 PM CDT [facility] Albumin 2.9(L) 3.5 - 5.2 gm/dL 03/13/2021 3:44 PM CDT [facility] Bilirubin Total 0.3 0.2 - 1.2 mg/dL 03/13/2021 3:44 PM CDT [facility] eGFR by MDRD 56(L) >60 mL/min/1.7 3m2 03/13/2021 3:44 PM CDT [facility] eGFR by MDRD >60 >60 mL/min/1.7 3m2 03/13/2021 3:44 PM CDT [facility] Blood BLOOD SPECIMEN / Unknown Venipuncture / Unknown 03/13/2021 4:00 AM CDT 03/13/2021 2:55 PM CDT Andrés Ferro MD LAB - CHEMISTRY OR DERABLES Performing Organization Address City/State/[facility] Co de Phone Number [facility] [address] [place] [address] documented in this encounter Visit Diagnoses Not on filedocumented in this encounter Care Teams Used Car Renovator Relationship Specialty Start Date End Date Pepe Martel MD [address] [place] [address] 3 [place] [address] PCP - General 08/14/16 documented as of this encounter
--- OUTSIDE RECORDS SUMMARY | 2024-08-23 06:08 | XMS_ITS | Encounter Summary ---
Author Organization [facility] Address [address] [place] [address] Care Team Providers Care Web Communications Specialist Name Role Phone Pepe Martel MD Primary Care Provider [phone] Encounter Details Date Type Department Care Team (Late st Contact Info) Description 03/15/2021 Lab Requisition [facility] [address] [place] [address] Unknown, Provider Social History Tobacco Use Types [...] - 10.7 x10E9/L 03/15/2021 10:40 AM CDT [facility] WBC Corrected 03/15/2021 10:40 AM CDT [facility] RBC 3.75(L) 3.80 - 5.40 x10E12/L 03/15/2021 10:40 AM CDT [facility] Hemoglobin 10.2(L) 12.0 - 17.6 gm/dL 03/15/2021 10:40 AM CDT [facility] Hematocrit 33.6(L) 35.2 - 51.7 % 03/15/2021 10:40 AM CDT [facility] MCV 89.6 80.7 - 98.3 fl 03/15/2021 10:40 AM CDT [facility] MCH 27.2 26.7 - 34.0 pg 03/15/2021 10:40 AM CDT [facility] MCHC 30.4(L) 30.8 - 35.9 gm/dL 03/15/2021 10:40 AM CDT [facility] Platelet Count 498(H) 153 - 416 x10E9/L 03/15/2021 10:40 AM CDT [facility] RDW-CV 13.6 12.1 - 14.9 % 03/15/2021 10:40 AM CDT [facility] MPV 10.8 9.4 - 12.9 fl 03/15/2021 10:40 AM CDT [facility] Neutrophils % 81.1(H) 44.0 - 73.0 % 03/15/2021 10:40 AM CDT [facility] Lymphocytes % 8.2(L) 20.0 - 43.0 % 03/15/2021 10:40 AM CDT [facility] Monocytes % 7.3 5.0 - 13.0 % 03/15/2021 10:40 AM CDT [facility] Eosinophils % 2.0 0.0 - 6.0 % 03/15/2021 10:40 AM CDT [facility] Basophils % 0.2 0.0 - 2.0 % 03/15/2021 10:40 AM CDT [facility] Immature Granulocytes 1.2(H) 0 - 1 % 03/15/2021 10:40 AM CDT [facility] Neutrophil Absolute 13.19(H) 2.01 - 7.14 x10E9/L 03/15/2021 10:40 AM CDT [facility] Lymphocytes Absolute 1.33 1.07 - 3.94 x10E9/L 03/15/2021 10:40 AM CDT [facility] Monocytes Absolute 1.18(H) 0.26 - 1.07 x10E9/L 03/15/2021 10:40 AM CDT [facility] Eosinophils Absolute 0.33 0 - 0.47 x10E9/L 03/15/2021 10:40 AM CDT [facility] Basophils Absolute 0.04 0 - 0.08 x10E9/L 03/15/2021 10:40 AM CDT [facility] Immature Granulocytes Absolute 0.19(H) 0.00 - 0.06 x10E9/L 03/15/2021 10:40 AM CDT [facility] nRBC Auto 0 /100 WBC 03/15/2021 10:40 AM CDT [facility] Blood BLOOD SPECIMEN / Unknown Venipuncture / Unknown 03/15/2021 3:00 AM CDT 03/15/2021 9:41 AM CDT Provider Unknown LAB - HEMATOLOGY ORD ERABLES [facility] [address] [place] [address] * (ABNORMAL) COMPREHENSIVE METABOLIC PANEL (03/15/2021 3:00 AM CDT) [facility] Glucose 128(H) 70 - 105 mg/dL 03/15/2021 10:22 AM CDT [facility] Sodium 137 136 - 145 mmol/L 03/15/2021 10:[address] [facility] Potassium 5.3(H) 3.5 - 5.1 mmol/L 03/15/2021 10:[address] [facility] Chloride 103 98 - 107 mmol/L 03/15/2021 10:[address] [facility] CO2 20(L) 23 - 31 mmol/L 03/15/2021 10:[address] [facility] Calcium 8.5 8.4 - 10.4 mg/dL 03/15/2021 10:[address] [facility] Anion Gap 14 8 - 18 mmol/L 03/15/2021 10:[address] [facility] BUN 36(H) 8.9 - 20.6 mg/dL 03/15/2021 10:[address] [facility] Creatinine 1.37(H) 0.72 - 1.25 mg/dL 03/15/2021 10:[address] [facility] Alkaline Phosphatase 263(H) 40 - 150 U/L 03/15/2021 10:[address] [facility] ALT 40 0 - 61 U/L 03/15/2021 10:[address] [facility] AST 43(H) 5 - 34 U/L 03/15/2021 10:[address] [facility] Protein Total 8.1 6.4 - 8.3 gm/dL 03/15/2021 10:[address] [facility] Albumin 3.0(L) 3.5 - 5.2 gm/dL 03/15/2021 10:[address] [facility] Bilirubin Total 0.4 0.2 - 1.2 mg/dL 03/15/2021 10:[address] [facility] eGFR by MDRD 59(L) >60 mL/min/1.7 3m2 03/15/2021 10:[address] [facility] eGFR by MDRD >60 >60 mL/min/1.7 3m2 03/15/2021 10:[address] [facility] Blood BLOOD SPECIMEN / Unknown Venipuncture / Unknown 03/15/2021 3:00 AM CDT 03/15/2021 9:41 AM T Provider Unknown LAB - [facility] [address] [place] [address] documented in this encounter Visit Diagnoses Not on filedocumented in this encounter Care Teams Web Communications Specialist Relationship Specialty Start Date End Date Pepe Martel MD [address] [facility] [address] [place] [address] PCP - General 08/14/16 documented as of this encounter
--- OUTSIDE RECORDS SUMMARY | 2024-08-23 06:08 | XMS_ITS | Encounter Summary ---
Author Organization [facility] Health Address [address] [facility] [place] [address] Care Team Providers Care Combiner Operator Name Role Phone Pepe Martel MD Primary Care Provider [phone] Encounter Details Date Type Department Care Team (Late st Contact Info) Description 04/14/2021 Lab Requisition [facility] [address] [place] [address] Lamberto De La Cruz MD [address] [facility] [address] [place] [address] Social History Tobacco Use Types [...] W AUTO DIFFERENTIAL STAT 04/14/2021 5:00 AM REFUGE WORKER COMPREHENSIVE METABOLIC PANEL STAT 04/14/2021 5:00 AM REFUGE WORKER VANCOMYCIN LEVEL TROUGH STAT 04/14/2021 4:00 AM REFUGE WORKER documented in this encounter Results * (ABNORMAL) CBC WITH DIFFERENTIAL (04/14/2021 5:00 AM REFUGE WORKER) WBC 8.0 4.4 - 10.7 x10E9/L 04/14/2021 10:47 AM REFUGE WORKER [facility] WBC Corrected 04/14/2021 10:47 AM REFUGE WORKER [facility] RBC 3.81 3.80 - 5.40 x10E12/L 04/14/2021 10:47 AM REFUGE WORKER [facility] Hemoglobin 10.5(L) 12.0 - 17.6 gm/dL 04/14/2021 10:47 AM REFUGE WORKER [facility] Hematocrit 33.5(L) 35.2 - 51.7 % 04/14/2021 10:47 AM REFUGE WORKER [facility] MCV 87.9 80.7 - 98.3 fl 04/14/2021 10:47 AM REFUGE WORKER [facility] MCH 27.6 26.7 - 34.0 pg 04/14/2021 10:47 AM REFUGE WORKER [facility] MCHC 31.3 30.8 - 35.9 gm/dL 04/14/2021 10:47 AM REFUGE WORKER [facility] Platelet Count 452(H) 153 - 416 x10E9/L 04/14/2021 10:47 AM REFUGE WORKER [facility] RDW-CV 14.6 12.1 - 14.9 % 04/14/2021 10:47 AM REFUGE WORKER [facility] MPV 9.6 9.4 - 12.9 fl 04/14/2021 10:47 AM REFUGE WORKER [facility] Neutrophils % 65.2 44.0 - 73.0 % 04/14/2021 10:47 AM REFUGE WORKER [facility] Lymphocytes % 17.3(L) 20.0 - 43.0 % 04/14/2021 10:47 AM [facility] Monocytes % 12.1 5.0 - 13.0 % 04/14/2021 10:47 AM [facility] Eosinophils % 4.7 0.0 - 6.0 % 04/14/2021 10:47 AM [facility] Basophils % 0.5 0.0 - 2.0 % 04/14/2021 10:47 AM [facility] Immature Granulocytes 0.2 0 - 1 % 04/14/2021 10:47 AM [facility] Neutrophil Absolute 5.22 2.01 - 7.14 x10E9/L 04/14/2021 10:47 AM [facility] Lymphocytes Absolute 1.39 1.07 - 3.94 x10E9/L 04/14/2021 10:47 AM [facility] Monocytes Absolute 0.97 0.26 - 1.07 x10E9/L 04/14/2021 10:47 AM [facility] Eosinophils Absolute 0.38 0 - 0.47 x10E9/L 04/14/2021 10:47 AM [facility] Basophils Absolute 0.04 0 - 0.08 x10E9/L 04/14/2021 10:47 AM [facility] Immature Granulocytes Absolute 0.02 0.00 - 0.06 x10E9/L 04/14/2021 10:47 AM [facility] nRBC Auto 0 /100 WBC 04/14/2021 10:47 AM [facility] Blood BLOOD SPECIMEN / Unknown Venipuncture / Unknown 04/14/2021 5:00 AM REFUGE WORKER 04/14/2021 9:39 AM [facility] Lamberto De La Cruz MD LAB - HEMATOLOGY ORD ERABLES [facility] [address] [place] [address] * (ABNORMAL) COMPREHENSIVE METABOLIC PANEL (04/14/2021 5:00 AM REFUGE WORKER) [facility] Glucose 102 70 - 105 mg/dL 04/14/2021 10:51 AM [facility] Sodium 138 136 - 145 mmol/L 04/14/2021 10:51 AM [facility] Potassium 4.9 3.5 - 5.1 mmol/L 04/14/2021 10:51 AM [facility] Chloride 102 98 - 107 mmol/L 04/14/2021 10:51 AM [facility] CO2 24 23 - 31 mmol/L 04/14/2021 10:51 AM [facility] Calcium 9.8 8.4 - 10.4 mg/dL 04/14/2021 10:51 AM [facility] Anion Gap 12 8 - 18 mmol/L 04/14/2021 10:51 AM [facility] BUN 23(H) 8.9 - 20.6 mg/dL 04/14/2021 10:51 AM [facility] Creatinine 0.84 0.72 - 1.25 mg/dL 04/14/2021 10:51 AM [facility] Alkaline Phosphatase 104 40 - 150 U/L 04/14/2021 10:51 AM [facility] ALT 31 0 - 61 U/L 04/14/2021 10:51 AM [facility] AST 24 5 - 34 U/L 04/14/2021 10:51 AM [facility] Protein Total 7.6 6.4 - 8.3 gm/dL 04/14/2021 10:51 AM [facility] Albumin 3.6 3.5 - 5.2 gm/dL 04/14/2021 10:51 AM [facility] Bilirubin Total 0.2 0.2 - 1.2 mg/dL 04/14/2021 10:51 AM [facility] eGFR by MDRD >60 >60 mL/min/1.7 3m2 04/14/2021 10:51 AM [facility] eGFR by MDRD >60 >60 mL/min/1.7 3m2 04/14/2021 10:51 AM [facility] Blood BLOOD SPECIMEN / Unknown Venipuncture / Unknown 04/14/2021 5:00 AM REFUGE WORKER 04/14/2021 9:39 AM [facility] Lamberto De La Cruz MD LAB - CHEMISTRY JOSE ENRIQUE VELA [facility] Organization Address City/State/ZIP Co de Phone Number [facility] [address] [place] [address] * VANCOMYCIN LEVEL TROUGH (04/14/2021 4:00 AM REFUGE WORKER) Vancomycin Trough 16.6 10.0 - 20.0 ug/mL 04/14/2021 11:53 AM REFUGE WORKER [facility] Blood BLOOD SPECIMEN / Unknown Venipuncture / Unknown 04/14/2021 4:00 AM REFUGE WORKER 04/14/2021 11:02 AM REFUGE WORKER Lamberto De La Cruz MD LAB - CHEMISTRY JOSE ENRIQUE VELA [facility] Organization Address City/State/ZIP Co de Phone Number [facility] [address] [place] [address] documented in this encounter Visit Diagnoses Not on filedocumented in this encounter Care Teams Combiner Operator Relationship Specialty Start Date End Date Pepe Martel MD [address] [place] [address] [address] [place] [address] PCP - General 08/14/16 documented as of this encounter
--- OUTSIDE RECORDS SUMMARY | 2024-08-23 06:08 | XMS_ITS | Encounter Summary ---
Author Organization [facility] Health Address [address] [facility] [place] [address] Care Team Providers Care Machinist Wood Name Role Phone Pepe Martel MD Primary Care Provider Encounter Details Date Type Department Care Team (Late st Contact Info) Description 03/21/2021 Lab Requisition [facility] [address] [place] [address] Fredy Sue [address] [place] [id number] Social History Tobacco Use Types Packs/Day [...] >60 mL/min/1.7 3m2 03/21/2021 9:38 AM CDT [facility] Blood BLOOD SPECIMEN / Unknown Venipuncture / Unknown 03/21/2021 3:00 AM CDT 03/21/2021 9:05 AM CDT Fredy Sue LAB - CHEMISTRY JOSE ENRIQUE VELA [facility] Organization Address City/State/[facility] Co de Phone Number [facility] [address] [place] [address] documented in this encounter Visit Diagnoses Not on filedocumented in this encounter Care Teams Machinist Wood Relationship Specialty Start Date End Date Pepe Martel MD [address] [place] [id number] PCP - General 08/14/16 documented as of this encounter
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
--- OUTSIDE RECORDS SUMMARY | 2024-08-23 06:08 | XMS_ITS | Encounter Summary ---
Author Organization [facility] Address [address] [place] [address] Care Team Providers Care Human Capital Manager Name Role Phone Pepe Martel MD Primary Care Provider [phone] Encounter Details Date Type Department Care Team (Late st Contact Info) Description 10/08/2021 Lab Requisition [facility] [address] [place], [place] [id number] [place] [address] [place] [address] Social History Tobacco Use Types [...] Yellow Straw, Yellow 10/08/2021 8:33 AM CDT [facility] Clarity UA Slt Cloudy(A) Clear 10/08/2021 8:33 AM CDT [facility] Glucose UA Negative Negative 10/08/2021 8:33 AM CDT [facility] Bilirubin UA Negative Negative 10/08/2021 8:33 AM CDT [facility] Ketone UA Negative Negative 10/08/2021 8:33 AM CDT [facility] Specific Dale UA 1.015 1.005 - 1.030 10/08/2021 8:33 AM CDT [facility] Blood UA Negative Negative 10/08/2021 8:33 AM CDT [facility] pH UA 7.0 5.0 - 8.0 pH 10/08/2021 8:33 AM CDT [facility] Protein UA Negative Negative 10/08/2021 8:33 AM CDT [facility] Urobilinogen UA Negative Negative mg/dL 10/08/2021 8:33 AM CDT [facility] Nitrite UA Negative Negative 10/08/2021 8:33 AM CDT [facility] Leukocyte UA Negative Negative 10/08/2021 8:33 AM CDT [facility] Urine Microscopy Urine microscopy not indicated 10/08/2021 8:33 AM CDT [facility] Urine URINE SPECIMEN OBTAINED BY CLEAN CATCH PROCEDURE / Unknown Collection / Unknown 10/07/2021 5:16 PM CDT 10/08/2021 7:51 AM CDT Narrative [facility] - 10/08/2021 8:33 AM CDT Ascorbic Acid can cause false negative urine strip tests for blood, glucose, nitrite, and bilirubin. Braden A David MD LAB - URINALYSIS ORD ERABLES [facility] [address] [place] [address] documented in this encounter Visit Diagnoses Not on filedocumented in this encounter Care Teams Human Capital Manager Relationship Specialty Start Date End Date Pepe Martel MD [address] [facility] [address] [place] [address] PCP - General 08/14/16 documented as of this encounter
--- OUTSIDE RECORDS SUMMARY | 2024-08-23 06:08 | XMS_ITS | Clinical Summary ---
Author Organization [facility] AddressReport Address [address] [facility] [place] [address] Care Team Providers Care Dry Cell And Battery Assembler Name Role Phone Pepe Martel MD Primary Care Provider [phone] Source Comments [facility],non-owned Affiliates and Associated Physician Practices is amultiple site organization consisting of ambulatory clinics and hospital sitesin [place], [place], [place] and [place]. This disclosure is being madepursuant to the Care Everywhere program and may not contain all information available regarding this patient. Last updated 18.[facility] AddressReport Allergies No known active allergies Medications * [...] confirmed with ETCO2 and bilateral breath sounds.. Trauma 02/15/2021 Cardiac arrest 02/15/2021 Morbid obesity [...] Comments Blood Pressure 108/66 04/01/2021 7:00 PM STANDARDS ENGINEER Pulse 93 04/01/2021 7:00 PM STANDARDS ENGINEER Temperature 37.7 C (99.8 F) 04/01/2021 4:00 PM STANDARDS ENGINEER Respiratory Rate 23 04/01/2021 7:00 PM STANDARDS ENGINEER Oxygen Saturation 97% 04/01/2021 7:00 PM STANDARDS ENGINEER Inhaled Oxygen Concentration 25% 04/01/2021 7 :00 PM STANDARDS ENGINEER Weight 163.3 kg (360 lb) 03/27/2021 4:00 AM STANDARDS ENGINEER no scd Height 177.8 cm (5' 10 ) 03/23/2021 1:08 PM STANDARDS ENGINEER Body Mass Index 51.65 03/23/2021 1:08 PM STANDARDS ENGINEER Plan of Treatment Health Maintenance Due Date Last Done Comments HIV SCREENING 2000 HEPATITIS C SCREENING 12/25/2003 HEPATITIS B VACCINE (1 of 3 - 19+ 3-dose series) 2004 PNEUMOCOCCAL VACCINE (1 of 2 - PCV) 2004 COVID-19 VACCINE ( - 2023-2 5 season) 2024 INFLUENZA VACCINE (#1) 2024 DEPRESSION SCREENING 05/17/2024 DTAP/TDAP/TD VACCINES (2 - T d or Tdap) 02/15/2031 02/15/2021 ZOSTER VACCINE (1 of 2) 12/30/2035 HIB VACCINE Aged Out No longer eligi ble based on patient's age to complete this topic HPV VACCINE Aged Out No longer eligi ble based on patient's age to complete this topic MENINGOCOCCAL (Group B) VACC INE SHARED DECISION-MAKING Aged Out No longer eligibl e based on patient's age to complete this topic MENINGOCOCCAL GROUPS A/C/Y/W VACCINE Aged Out No longer eligible b ased on patient's age to complete this topic Advance Directives Documents on File Type Date Recorded Patient Development Educator Expl anation Adv Directive/Living Will/POA 09/22/2021 5:10 PM Adv Directive/Living Will/POA 07/31/2021 3:08 PM * Full Code (Latest Code Status on File) Date Activated Date Inactivated Comments 03/24/2021 4:29 AM 04/01/2021 8:42 PM * Full Code Date Activated Date Inactivated Comments 02/16/2021 11:12 AM 03/12/2021 10:10 PM * Full Code Date Activated Date Inactivated Comments 02/15/2021 12:03 PM 02/16/2021 11:12 AM Care Teams Dry Cell And Battery Assembler Relationship Specialty Start Date End Date Pepe Martel MD [address] [facility] [address] [place] [address] PCP - General 08/14/16
--- OUTSIDE RECORDS SUMMARY | 2024-08-23 06:08 | XMS_ITS | Encounter Summary ---
Author Organization [facility] Address [address] [facility] [place] [address] Care Team Providers Care Electrical Installer Name Role Phone Pepe Martel MD Primary Care Provider Encounter Details Date Type Department Care Team (Late st Contact Info) Description 01/01/2022 Lab Requisition [facility] [address] [place] [address] Alverto Virgen MD [address] [place] [address] [place] [address] Social History Tobacco Use Types Packs/Day Years [...] - 1.2 mg/dL 01/01/2022 8:57 AM CDT [facility] eGFR by CKD-EPI >90 >=90 mL/min/1.7 3 m2 01/01/2022 8:57 AM CDT [facility] Blood BLOOD SPECIMEN / Unknown Venipuncture / Unknown 01/01/2022 4:23 AM CDT 01/01/2022 8:15 AM CDT Alverto Virgen MD LAB - CHEMISTRY O RDERABLES [facility] [address] [place], [place] [id number] documented in this encounter Visit Diagnoses Not on filedocumented in this encounter Care Teams Electrical Installer Relationship Specialty Start Date End Date Pepe Martel MD [address] [place] [address] [address] [place] [address] PCP - General 08/14/16 documented as of this encounter
--- OUTSIDE RECORDS SUMMARY | 2024-08-23 06:08 | XMS_ITS | Encounter Summary ---
Author Organization [facility] Address [address] [facility] [place] [address] Care Team Providers Care Roof Technician Name Role Phone Pepe Martel MD Primary Care Provider [phone] Encounter Details Date Type Department Care Team (Late st Contact Info) Description 04/21/2021 Lab Requisition [facility] [address] [place] [address] Lamberto De La Cruz MD [address] [facility] [address] [place] [address] Social History Tobacco Use Types [...] W AUTO DIFFERENTIAL Routine 04/21/2021 3:30 AM BATTERY SERVICE TECHNICIAN COMPREHENSIVE METABOLIC PANEL Routine 04/21/2021 3:30 AM BATTERY SERVICE TECHNICIAN documented in this encounter Results * (ABNORMAL) COMPREHENSIVE METABOLIC PANEL (04/21/2021 3:30 AM BATTERY SERVICE TECHNICIAN) Glucose 89 70 - 105 mg/dL 04/21/2021 12:54 PM BATTERY SERVICE TECHNICIAN [facility] Sodium 136 136 - 145 mmol/L 04/21/2021 12:54 PM BATTERY SERVICE TECHNICIAN [facility] Potassium 4.5 3.5 - 5.1 mmol/L 04/21/2021 12:54 PM BATTERY SERVICE TECHNICIAN [facility] Chloride 102 98 - 107 mmol/L 04/21/2021 12:54 PM BATTERY SERVICE TECHNICIAN [facility] CO2 21(L) 23 - 31 mmol/L 04/21/2021 12:54 PM BATTERY SERVICE TECHNICIAN [facility] Calcium 9.7 8.4 - 10.4 mg/dL 04/21/2021 12:54 PM BATTERY SERVICE TECHNICIAN [facility] Anion Gap 13 8 - 18 mmol/L 04/21/2021 12:54 PM BATTERY SERVICE TECHNICIAN [facility] BUN 28(H) 8.9 - 20.6 mg/dL 04/21/2021 12:54 PM BATTERY SERVICE TECHNICIAN [facility] Creatinine 0.86 0.72 - 1.25 mg/dL 04/21/2021 12:54 PM BATTERY SERVICE TECHNICIAN [facility] Alkaline Phosphatase 81 40 - 150 U/L 04/21/2021 12:54 PM BATTERY SERVICE TECHNICIAN [facility] ALT 24 0 - 61 U/L 04/21/2021 12:54 PM BATTERY SERVICE TECHNICIAN [facility] AST 23 5 - 34 U/L 04/21/2021 12:54 PM BATTERY SERVICE TECHNICIAN [facility] Protein Total 7.7 6.4 - 8.3 gm/dL 04/21/2021 12:54 PM BATTERY SERVICE TECHNICIAN [facility] Albumin 3.7 3.5 - 5.2 gm/dL 04/21/2021 12:54 PM BATTERY SERVICE TECHNICIAN [facility] Bilirubin Total 0.2 0.2 - 1.2 mg/dL 04/21/2021 12:54 PM BATTERY SERVICE TECHNICIAN [facility] eGFR by MDRD >60 >60 mL/min/1.7 3m2 04/21/2021 12:54 PM [facility] eGFR by MDRD >60 >60 mL/min/1.7 3m2 04/21/2021 12:54 PM [facility] Blood BLOOD SPECIMEN / Unknown Venipuncture / Unknown 04/21/2021 3:30 AM BATTERY SERVICE TECHNICIAN 04/21/2021 11:53 AM BATTERY SERVICE TECHNICIAN Lamberto De La Cruz MD [facility] Organization Address City/State/[facility] [[email or web address]] Co de Phone Number [facility] [address] [place], [place] [phone] * (ABNORMAL) CBC WITH DIFFERENTIAL (04/21/2021 3:30 AM BATTERY SERVICE TECHNICIAN) WBC 6.7 4.4 - 10.7 x10E9/L 04/21/2021 11:59 AM [facility] WBC Corrected 04/21/2021 11:59 AM [facility] RBC 3.95 3.80 - 5.40 x10E12/L 04/21/2021 11:59 AM [facility] Hemoglobin 11.1(L) 12.0 - 17.6 gm/dL 04/21/2021 11:59 AM [facility] Hematocrit 35.6 35.2 - 51.7 % 04/21/2021 11:59 AM [facility] MCV 90.1 80.7 - 98.3 fl 04/21/2021 11:59 AM [facility] MCH 28.1 26.7 - 34.0 pg 04/21/2021 11:59 AM [facility] MCHC 31.2 30.8 - 35.9 gm/dL 04/21/2021 11:59 AM [facility] Platelet Count 367 153 - 416 x10E9/L 04/21/2021 11:59 AM [facility] RDW-CV 14.4 12.1 - 14.9 % 04/21/2021 11:59 AM [facility] MPV 10.3 9.4 - 12.9 fl 04/21/2021 11:59 AM [facility] Neutrophils % 58.6 44.0 - 73.0 % 04/21/2021 11:59 AM [facility] Lymphocytes % 19.7(L) 20.0 - 43.0 % 04/21/2021 11:59 AM [facility] Monocytes % 16.8(H) 5.0 - 13.0 % 04/21/2021 11:59 AM [facility] Eosinophils % 4.1 0.0 - 6.0 % 04/21/2021 11:59 AM [facility] Basophils % 0.6 0.0 - 2.0 % 04/21/2021 11:59 AM [facility] Immature Granulocytes 0.2 0 - 1 % 04/21/2021 11:59 AM [facility] Neutrophil Absolute 3.91 2.01 - 7.14 x10E9/L 04/21/2021 11:59 AM [facility] Lymphocytes Absolute 1.31 1.07 - 3.94 x10E9/L 04/21/2021 11:59 AM [facility] Monocytes Absolute 1.12(H) 0.26 - 1.07 x10E9/L 04/21/2021 11:59 AM [facility] Eosinophils Absolute 0.27 0 - 0.47 x10E9/L 04/21/2021 11:59 AM [facility] Basophils Absolute 0.04 0 - 0.08 x10E9/L 04/21/2021 11:59 AM [facility] Immature Granulocytes Absolute 0.01 0.00 - 0.06 x10E9/L 04/21/2021 11:59 AM [facility] nRBC Auto 0 /100 WBC 04/21/2021 11:59 AM [facility] Blood BLOOD SPECIMEN / Unknown Venipuncture / Unknown 04/21/2021 3:30 AM BATTERY SERVICE TECHNICIAN 04/21/2021 11:53 AM BATTERY SERVICE TECHNICIAN Lamberto De La Cruz MD LAB - HEMATOLOGY ORD ERABLES [facility] [address] [place] [address] documented in this encounter Visit Diagnoses Not on filedocumented in this encounter Care Teams Roof Technician Relationship Specialty Start Date End Date Pepe Martel MD [address] [place] [address] PCP - General 08/14/16 documented as of this encounter
--- OUTSIDE RECORDS SUMMARY | 2024-08-23 06:08 | XMS_ITS | Encounter Summary ---
Author Organization [facility] Address [address] [facility] [place] [address] Care Team Providers Care Boot Trimmer Name Role Phone Pepe Martel MD Primary Care Provider [phone] Encounter Details Date Type Department Care Team (Late st Contact Info) Description 04/17/2021 Lab Requisition [facility] [address] [place] [address] Lamberto De La Cruz MD [address] [facility] [address] [place] [address] Social History Tobacco Use Types [...] W AUTO DIFFERENTIAL STAT 04/17/2021 5:00 AM FOOD AND NUTRITION PROFESSOR COMPREHENSIVE METABOLIC PANEL STAT 04/17/2021 5:00 AM FOOD AND NUTRITION PROFESSOR documented in this encounter Results * (ABNORMAL) CBC WITH DIFFERENTIAL (04/17/2021 5:00 AM FOOD AND NUTRITION PROFESSOR) WBC 9.1 4.4 - 10.7 x10E9/L 04/17/2021 9:45 AM FOOD AND NUTRITION PROFESSOR [facility] WBC Corrected 04/17/2021 9:45 AM FOOD AND NUTRITION PROFESSOR [facility] RBC 3.88 3.80 - 5.40 x10E12/L 04/17/2021 9:45 AM FOOD AND NUTRITION PROFESSOR [facility] Hemoglobin 11.0(L) 12.0 - 17.6 gm/dL 04/17/2021 9:45 AM FOOD AND NUTRITION PROFESSOR [facility] Hematocrit 34.8(L) 35.2 - 51.7 % 04/17/2021 9:45 AM FOOD AND NUTRITION PROFESSOR [facility] MCV 89.7 80.7 - 98.3 fl 04/17/2021 9:45 AM FOOD AND NUTRITION PROFESSOR [facility] MCH 28.4 26.7 - 34.0 pg 04/17/2021 9:45 AM FOOD AND NUTRITION PROFESSOR [facility] MCHC 31.6 30.8 - 35.9 gm/dL 04/17/2021 9:45 AM FOOD AND NUTRITION PROFESSOR [facility] Platelet Count 314 153 - 416 x10E9/L 04/17/2021 9:45 AM FOOD AND NUTRITION PROFESSOR [facility] RDW-CV 14.4 12.1 - 14.9 % 04/17/2021 9:45 AM FOOD AND NUTRITION PROFESSOR [facility] MPV 9.9 9.4 - 12.9 fl 04/17/2021 9:45 AM FOOD AND NUTRITION PROFESSOR [facility] Neutrophils % 66.0 44.0 - 73.0 % 04/17/2021 9:45 AM FOOD AND NUTRITION PROFESSOR [facility] Lymphocytes % 16.5(L) 20.0 - 43.0 % 04/17/2021 9:45 AM FOOD AND NUTRITION PROFESSOR [facility] Monocytes % 13.5(H) 5.0 - 13.0 % 04/17/2021 9:45 AM [facility] Eosinophils % 3.1 0.0 - 6.0 % 04/17/2021 9:45 AM [facility] Basophils % 0.7 0.0 - 2.0 % 04/17/2021 9:45 AM [facility] Immature Granulocytes 0.2 0 - 1 % 04/17/2021 9:45 AM [facility] Neutrophil Absolute 6.01 2.01 - 7.14 x10E9/L 04/17/2021 9:45 AM [facility] Lymphocytes Absolute 1.50 1.07 - 3.94 x10E9/L 04/17/2021 9:45 AM [facility] Monocytes Absolute 1.23(H) 0.26 - 1.07 x10E9/L 04/17/2021 9:45 AM [facility] Eosinophils Absolute 0.28 0 - 0.47 x10E9/L 04/17/2021 9:45 AM [facility] Basophils Absolute 0.06 0 - 0.08 x10E9/L 04/17/2021 9:45 AM [facility] Immature Granulocytes Absolute 0.02 0.00 - 0.06 x10E9/L 04/17/2021 9:45 AM [facility] nRBC Auto 0 /100 WBC 04/17/2021 9:45 AM [facility] Blood BLOOD SPECIMEN / Unknown Venipuncture / Unknown 04/17/2021 5:00 AM FOOD AND NUTRITION PROFESSOR 04/17/2021 9:29 AM [facility] Lamberto De La Cruz MD LAB - HEMATOLOGY ORD ERABLES [facility] [address] [place] [address] * (ABNORMAL) COMPREHENSIVE METABOLIC PANEL (04/17/2021 5:00 AM [facility]) [facility] Glucose 98 70 - 105 mg/dL 04/17/2021 10:36 AM [facility] Sodium 138 136 - 145 mmol/L 04/17/2021 10:36 AM [facility] Potassium 4.4 3.5 - 5.1 mmol/L 04/17/2021 10:36 AM [facility] Chloride 102 98 - 107 mmol/L 04/17/2021 10:36 AM [facility] CO2 23 23 - 31 mmol/L 04/17/2021 10:36 AM [facility] Calcium 9.5 8.4 - 10.4 mg/dL 04/17/2021 10:36 AM [facility] Anion Gap 13 8 - 18 mmol/L 04/17/2021 10:36 AM [facility] BUN 25(H) 8.9 - 20.6 mg/dL 04/17/2021 10:36 AM [facility] Creatinine 0.88 0.72 - 1.25 mg/dL 04/17/2021 10:36 AM [facility] Alkaline Phosphatase 94 40 - 150 U/L 04/17/2021 10:36 AM [facility] ALT 27 0 - 61 U/L 04/17/2021 10:36 AM [facility] AST 22 5 - 34 U/L 04/17/2021 10:36 AM [facility] Protein Total 7.6 6.4 - 8.3 gm/dL 04/17/2021 10:36 AM [facility] Albumin 3.6 3.5 - 5.2 gm/dL 04/17/2021 10:36 AM [facility] Bilirubin Total 0.2 0.2 - 1.2 mg/dL 04/17/2021 10:36 AM [facility] eGFR by MDRD >60 >60 mL/min/1.7 3m2 04/17/2021 10:36 AM [facility] eGFR by MDRD >60 >60 mL/min/1.7 3m2 04/17/2021 10:36 AM [facility] Blood BLOOD SPECIMEN / Unknown Venipuncture / Unknown 04/17/2021 5:00 AM FOOD AND NUTRITION PROFESSOR 04/17/2021 9:29 AM [facility] Lamberto De La Cruz MD LAB - CHEMISTRY JOSE ENRIQUE VEL[facility] Organization Address City/State/ZIP Co de Phone Number [facility] [address] [place] [address] documented in this encounter Visit Diagnoses Not on filedocumented in this encounter Care Teams Boot Trimmer Relationship Specialty Start Date End Date Pepe Martel MD [address] [place] [address] PCP - General 08/14/16 documented as of this encounter
--- OUTSIDE RECORDS SUMMARY | 2024-08-23 06:08 | XMS_ITS | Encounter Summary ---
Author Organization [facility] Address [address] [facility] [place] [address] Care Team Providers Care Plastic Tool Maker Name Role Phone Pepe Martel MD Primary Care Provider [phone] Encounter Details Date Type Department Care Team (Late st Contact Info) Description 12/18/2021 Lab Requisition [facility] [address] [place] [address] Alverto Virgen MD [address] [place] [address] [place] [address] Social History Tobacco Use Types Packs/Day Years [...] - 1.2 mg/dL 12/18/2021 9:33 AM CDT [facility] eGFR by CKD-EPI >90 >=90 mL/min/1.7 3 m2 12/18/2021 9:33 AM CDT [facility] Blood BLOOD SPECIMEN / Unknown Venipuncture / Unknown 12/18/2021 3:58 AM CDT 12/18/2021 8:56 AM CDT Alverto Virgen MD LAB - CHEMISTRY O RDERABLES [facility] [address] [place] [address] documented in this encounter Visit Diagnoses Not on filedocumented in this encounter Care Teams Plastic Tool Maker Relationship Specialty Start Date End Date Pepe Martel MD [address] [place] [address] 3 [place] [address] PCP - General 08/14/16 documented as of this encounter
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
--- OUTSIDE RECORDS SUMMARY | 2024-08-23 06:08 | XMS_ITS | Encounter Summary ---
Author Organization [facility] Address [address] [facility] [place] [address] Care Team Providers Care Industrial Electrical Technician Name Role Phone Pepe Martel MD Primary Care Provider Encounter Details Date Type Department Care Team (Late st Contact Info) Description 12/17/2021 Lab Requisition [facility] [address] [place] [address] [place] [address] [place] [address] Social History Tobacco Use Types Packs/Day Years [...] METABOLIC PANEL (12/17/2021 3:35 AM CDT) Pathologist [facility] Glucose 99 70 - 105 mg/dL 12/17/2021 [...] - 1.2 mg/dL 12/17/2021 8:55 AM CDT [facility] eGFR by CKD-EPI >90 >=90 mL/min/1.7 3 m2 12/17/2021 8:55 AM CDT [facility] Blood BLOOD SPECIMEN / Unknown Venipuncture / Unknown 12/17/2021 3:35 AM CDT 12/17/2021 8:17 AM CDT Vinicio Quintanilla MD LAB - CHEMISTRY JOSE ENRIQUE VELA [facility] Organization Address City/State/[facility] Co de Phone Number [facility] [address] [place] [address] documented in this encounter Visit Diagnoses Not on filedocumented in this encounter Care Teams Industrial Electrical Technician Relationship Specialty Start Date End Date Pepe Martel MD [address] [place] [address] PCP - General 08/14/16 documented as of this encounter
--- OUTSIDE RECORDS SUMMARY | 2024-08-23 06:08 | XMS_ITS | Encounter Summary ---
Author Organization [facility] Address [address] [facility] [place] [address] Care Team Providers Care Technology Intern Name Role Phone Pepe Martel MD Primary Care Provider [phone] Encounter Details Date Type Department Care Team (Late st Contact Info) Description 12/22/2021 Lab Requisition [facility] [address] [place] [address] Alverto Virgen MD [address] [place] [address] [place] [address] Social History Tobacco Use Types Packs/Day Years [...] - 1.2 mg/dL 12/22/2021 11:46 AM CDT [facility] eGFR by CKD-EPI >90 >=90 mL/min/1.7 3 m2 12/22/2021 11:46 AM CDT [facility] Blood BLOOD SPECIMEN / Unknown Venipuncture / Unknown 12/22/2021 3:00 AM CDT 12/22/2021 10:37 AM CDT Alverto iVrgen MD LAB - CHEMISTRY O RDERABLES Performing Organization Address City/State/[facility] Co de Phone Number [facility] [address] [place], [place] [id number] documented in this encounter Visit Diagnoses Not on filedocumented in this encounter Care Teams Technology Intern Relationship Specialty Start Date End Date Pepe Martel MD [address] [place] [address] PCP - General 08/14/16 documented as of this encounter
--- OUTSIDE RECORDS SUMMARY | 2024-08-23 06:08 | XMS_ITS | Encounter Summary ---
Author Organization [facility] Address [address] [facility] [place] [address] Care Team Providers Care Deportation Examiner Name Role Phone Pepe Martel MD Primary Care Provider [phone] Encounter Details Date Type Department Care Team (Late st Contact Info) Description 12/08/2021 Lab Requisition [facility] [address] [place] [address] Alverto Virgen MD [address] [place] [address] [place] [address] Social History Tobacco Use Types Packs/Day Years [...] - 43.0 % 12/08/2021 8:58 AM CDT [facility] Monocytes % 8.4 5.0 - 13.0 % 12/08/2021 8:58 AM CDT [facility] Eosinophils % 2.3 0.0 - 6.0 % 12/08/2021 8:58 AM CDT [facility] Basophils % 0.3 0.0 - 2.0 % 12/08/2021 8:58 AM CDT [facility] Immature Granulocytes 0.2 0 - 1 % 12/08/2021 8:58 AM CDT [facility] Neutrophil Absolute 5.70 2.01 - 7.14 x10E9/L 12/08/2021 8:58 AM CDT [facility] Lymphocytes Absolute 2.00 1.07 - 3.94 x10E9/L 12/08/2021 8:58 AM CDT [facility] Monocytes Absolute 0.73 0.26 - 1.07 x10E9/L 12/08/2021 8:58 AM CDT [facility] Eosinophils Absolute 0.20 0 - 0.47 x10E9/L 12/08/2021 8:58 AM CDT [facility] Basophils Absolute 0.03 0 - 0.08 x10E9/L 12/08/2021 8:58 AM CDT [facility] Immature Granulocytes Absolute 0.02 0.00 - 0.06 x10E9/L 12/08/2021 8:58 AM CDT [facility] nRBC Auto 0 /100 WBC 12/08/2021 8:58 AM CDT [facility] Blood BLOOD SPECIMEN / Unknown Venipuncture / Unknown 12/08/2021 3:25 AM CDT 12/08/2021 8:41 AM CDT Alverto Virgen MD LAB - HEMATOLOGY ORDERABLES [facility] [address] [place] [address] * (ABNORMAL) COMPREHENSIVE METABOLIC PANEL (12/08/2021 3:25 AM CDT) [facility] Glucose 103 70 - 105 mg/dL 12/08/2021 9:24 AM CDT [facility] Sodium 139 136 - 145 mmol/L 12/08/2021 9:24 AM CDT [facility] Potassium 4.9 3.5 - 5.1 mmol/L 12/08/2021 9:24 AM CDT [facility] Chloride 100 98 - 107 mmol/L 12/08/2021 9:24 AM CDT [facility] CO2 24 23 - 31 mmol/L 12/08/2021 9:24 AM CDT [facility] Calcium 10.1 8.4 - 10.4 mg/dL 12/08/2021 9:24 AM T [facility] Anion Gap 15 8 - 18 mmol/L 12/08/2021 9:24 AM T [facility] BUN 33(H) 8.9 - 20.6 mg/dL 12/08/2021 9:24 AM [facility] Creatinine 1.11 0.72 - 1.25 mg/dL 12/08/2021 9:24 AM [facility] Alkaline Phosphatase 135 40 - 150 U/L 12/08/2021 9:24 AM CDT [facility] ALT 16 0 - 61 U/L 12/08/2021 9:24 AM CDT [facility] AST 13 5 - 34 U/L 12/08/2021 9:24 AM T [facility] Protein Total 7.7 6.4 - 8.3 gm/dL 12/08/2021 9:24 AM [facility] Albumin 3.8 3.5 - 5.2 gm/dL 12/08/2021 9:24 AM T [facility] Bilirubin Total 0.3 0.2 - 1.2 mg/dL 12/08/2021 9:24 AM [facility] eGFR by CKD-EPI 89(L) >=90 mL/min/1.7 3 m2 12/08/2021 9:24 AM [facility] Blood BLOOD SPECIMEN / Unknown Venipuncture / Unknown 12/08/2021 3:25 AM CDT 12/08/2021 8:41 AM CDT Alverto Virgen MD LAB - CHEMISTRY O RDERABLES [facility] [address] [place] [address] documented in this encounter Visit Diagnoses Not on filedocumented in this encounter Care Teams Deportation Examiner Relationship Specialty Start Date End Date Pepe Martel MD [address] [place] [address] PCP - General 08/14/16 documented as of this encounter
--- OUTSIDE RECORDS SUMMARY | 2024-08-23 06:08 | XMS_ITS | Referral Summary ---
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 Gender Identity Not on file Sexual [...] cm (5' 7 ) 06/01/2016 4:44 AM MAINTENANCE PARTS TECHNICIAN Body Mass Index 34.53 06/01/2016 4:44 AM MAINTENANCE PARTS TECHNICIAN Plan of Treatment Not on file Procedures Procedure Name Priority Date/Time Associated Diagnosis Comments HEPATITIS PANEL, ACUTE Routine 08/01/2021 11:40 AM CDT from Last 3 Months or Most Recently Relevant to Health Maintenance Results * (ABNORMAL) Hepatitis panel, acute (08/01/2021 11:40 AM CDT) Hep A IgM Nonreactive Nonreactive [facility] Comment: Interpretive Data: If Hep A IgM Ab is reported as Equivocal, a new sample should be drawn in two weeks for testing. Current interpretive data was last revised on 19. Hep B core IgM Nonreactive Nonreactive [facility] Comment: Interpretive Data If HepB Core [...] Final Result [facility] Department [place] [address] from Last 3 Months or Most Recently Relevant to Health Maintenance Insurance IMKEL GUTIERREZ [facility] MIKEL GUTIERREZ [facility] Care Teams Traffic Engineering Director Relationship Specialty Start Date End Date No, Physician PCP - General 11/08/21
--- OUTSIDE RECORDS SUMMARY | 2024-08-23 06:08 | XMS_ITS | Encounter Summary ---
Author Organization [facility] Address [address] [facility] [place] [address] Care Team Providers Care Numerical Control Programmer Name Role Phone Pepe Martel MD Primary Care Provider Encounter Details Date Type Department Care Team (Late st Contact Info) Description 12/25/2021 Lab Requisition [facility] [address] [place] [address] Alverto Virgen MD [address] [place] [address] [place] [address] Social History Tobacco Use Types Packs/Day Years [...] - 107 mmol/L 12/25/2021 11:02 AM CDT [facility] CO2 23 23 - 31 mmol/L 12/25/2021 11:02 AM CDT [facility] Calcium 10.0 8.4 - 10.4 mg/dL 12/25/2021 11:02 AM CDT [facility] Anion Gap 14 8 - 18 mmol/L 12/25/2021 11:02 AM CDT [facility] BUN 33(H) 8.9 - 20.6 mg/dL 12/25/2021 11:02 AM CDT [facility] Creatinine 1.07 0.72 - 1.25 mg/dL 12/25/2021 11:02 AM CDT [facility] Alkaline Phosphatase 132 40 - 150 U/L 12/25/2021 11:02 AM CDT [facility] ALT 16 0 - 61 U/L 12/25/2021 11:02 AM CDT [facility] AST 10 5 - 34 U/L 12/25/2021 11:02 AM CDT [facility] Protein Total 7.7 6.4 - 8.3 gm/dL 12/25/2021 11:02 AM CDT [facility] Albumin 3.8 3.5 - 5.2 gm/dL 12/25/2021 11:02 AM CDT [facility] Bilirubin Total 0.3 0.2 - 1.2 mg/dL 12/25/2021 11:02 AM CDT [facility] eGFR by CKD-EPI >90 >=90 mL/min/1.7 3 m2 12/25/2021 11:02 AM T [facility] Blood BLOOD SPECIMEN / Unknown Venipuncture / Unknown 12/25/2021 5:09 AM CDT 12/25/2021 9:50 AM CDT Alverto Virgen MD LAB - CHEMISTRY O RDERABLES Performing Organization Address City/State/[facility] Co de Phone Number [facility] [address] [place] [address] documented in this encounter Visit Diagnoses Not on filedocumented in this encounter Care Teams Numerical Control Programmer Relationship Specialty Start Date End Date Pepe Martel MD [address] [place] [address] PCP - General 08/14/16 documented as of this encounter
--- OUTSIDE RECORDS SUMMARY | 2024-08-23 06:08 | XMS_ITS | Encounter Summary ---
Author Organization [facility] Address [address] [facility] [place] [address] Care Team Providers Care Comber Fixer Name Role Phone Pepe Martel MD Primary Care Provider [phone] Encounter Details Date Type Department Care Team (Late st Contact Info) Description 12/12/2021 Lab Requisition [facility] [address] [place] [address] [place] [address] [place] [address] Social History Tobacco Use Types [...] PANEL (CALCIUM TOTAL) (12/12/2021 4:00 AM CDT) [facility] Glucose 87 70 - 105 mg/dL 12/12/2021 10:10 AM CDT [facility] Sodium 139 136 - 145 mmol/L 12/12/2021 10:10 AM CDT [facility] Potassium 5.2(H) 3.5 - 5.1 mmol/L 12/12/2021 10:10 AM CDT [facility] Chloride 99 98 - 107 mmol/L 12/12/2021 10:10 AM CDT [facility] CO2 26 23 - 31 mmol/L 12/12/2021 10:10 AM CDT [facility] Calcium 10.2 8.4 - 10.4 mg/dL 12/12/2021 10:10 AM CDT [facility] Anion Gap 14 8 - 18 mmol/L 12/12/2021 10:10 AM CDT [facility] BUN 30(H) 8.9 - 20.6 mg/dL 12/12/2021 10:10 AM CDT [facility] Creatinine 1.07 0.72 - 1.25 mg/dL 12/12/2021 10:10 AM CDT [facility] eGFR by CKD-EPI >90 >=90 mL/min/1.7 3 m2 12/12/2021 10:10 AM CDT [facility] Blood BLOOD SPECIMEN / Unknown Venipuncture / Unknown 12/12/2021 4:00 AM CDT 12/12/2021 8:11 AM CDT Braden Hernandez MD LAB - CHEMISTRY JOSE ENRIQUE VELA [facility] Organization Address City/State/ZIP Co de Phone Number [facility] [address] [place] [address] documented in this encounter Visit Diagnoses Not on filedocumented in this encounter Care Teams Comber Fixer Relationship Specialty Start Date End Date Pepe Martel MD [address] [place] [address] PCP - General 08/14/16 documented as of this encounter
--- OUTSIDE RECORDS SUMMARY | 2024-08-23 06:08 | XMS_ITS | Encounter Summary ---
Author Organization [facility] Address [address] [facility] [place] [address] Care Team Providers Care Camera Storage Clerk Name Role Phone Pepe Martel MD Primary Care Provider [phone] Encounter Details Date Type Department Care Team (Late st Contact Info) Description 12/11/2021 Lab Requisition [facility] [address] [place] [address] Alverto Virgen MD [address] [place] [address] [place] [address] Social History Tobacco Use Types Packs/Day Years [...] - 1.2 mg/dL 12/11/2021 11:42 AM CDT [facility] eGFR by CKD-EPI 90 >=90 mL/min/1.7 3 m2 12/11/2021 11:42 AM CDT [facility] Blood BLOOD SPECIMEN / Unknown Venipuncture / Unknown 12/11/2021 4:46 AM CDT 12/11/2021 10:44 AM CDT Alverto Virgen MD LAB - CHEMISTRY O RDERABLES [facility] [address] [place] [address] documented in this encounter Visit Diagnoses Not on filedocumented in this encounter Care Teams Camera Storage Clerk Relationship Specialty Start Date End Date Pepe Martel MD [address] [facility] [address] [place] [address] PCP - General 08/14/16 documented as of this encounter
--- OUTSIDE RECORDS SUMMARY | 2024-08-23 06:09 | XMS_ITS | Encounter Summary ---
Author Organization [facility] Address [address] [facility] [place] [address] Care Team Providers Care Store Gift Wrap Associate Name Role Phone Pepe Martel MD Primary Care Provider [phone] Encounter Details Date Type Department Care Team (Late st Contact Info) Description 08/28/2021 Lab Requisition [facility] [address] [place] [address] [place] [address] [place] [address] Social History Tobacco Use Types Packs/Day Years [...] - 5.40 x10E12/L 08/28/2021 10:44 AM CDT [facility] Hemoglobin 11.9(L) 12.0 - 17.6 [...] - 43.0 % 08/28/2021 10:44 AM CDT [facility] Monocytes % 9.3 5.0 - 13.0 % 08/28/2021 10:44 AM CDT [facility] Eosinophils % 2.3 0.0 - 6.0 % 08/28/2021 10:44 AM CDT [facility] Basophils % 0.3 0.0 - 2.0 % 08/28/2021 10:44 AM CDT [facility] Immature Granulocytes 0.3 0 - 1 % 08/28/2021 10:44 AM CDT [facility] Neutrophil Absolute 6.67 2.01 - 7.14 x10E9/L 08/28/2021 10:44 AM CDT [facility] Lymphocytes Absolute 2.26 1.07 - 3.94 x10E9/L 08/28/2021 10:44 AM CDT [facility] Monocytes Absolute 0.94 0.26 - 1.07 x10E9/L 08/28/2021 10:44 AM CDT [facility] Eosinophils Absolute 0.23 0 - 0.47 x10E9/L 08/28/2021 10:44 AM CDT [facility] Basophils Absolute 0.03 0 - 0.08 x10E9/L 08/28/2021 10:44 AM CDT [facility] Immature Granulocytes Absolute 0.03 0.00 - 0.06 x10E9/L 08/28/2021 10:44 AM CDT [facility] nRBC Auto 0 /100 WBC 08/28/2021 10:44 AM T [facility] Blood BLOOD SPECIMEN / Unknown Venipuncture / Unknown 08/28/2021 3:00 AM CDT 08/28/2021 10:29 AM CDT Vinicio Quintanilla MD LAB - HEMATOLOGY ORD ERABLES [facility] [address] [place] [address] * (ABNORMAL) COMPREHENSIVE METABOLIC PANEL (08/28/2021 3:00 AM CDT) [facility] Glucose 104 70 - 105 mg/dL 08/28/2021 11:05 AM CDT [facility] Sodium 139 136 - 145 mmol/L 08/28/2021 11:05 AM [facility] Potassium 5.0 3.5 - 5.1 mmol/L 08/28/2021 11:05 AM [facility] Chloride 100 98 - 107 mmol/L 08/28/2021 11:05 AM [facility] CO2 24 23 - 31 mmol/L 08/28/2021 11:05 AM [facility] Calcium 10.4 8.4 - 10.4 mg/dL 08/28/2021 11:05 AM [facility] Anion Gap 15 8 - 18 mmol/L 08/28/2021 11:05 AM [facility] BUN 29(H) 8.9 - 20.6 mg/dL 08/28/2021 11:05 AM [facility] Creatinine 0.99 0.72 - 1.25 mg/dL 08/28/2021 11:05 AM [facility] Alkaline Phosphatase 176(H) 40 - 150 U/L 08/28/2021 11:05 AM [facility] ALT 28 0 - 61 U/L 08/28/2021 11:05 AM [facility] AST 18 5 - 34 U/L 08/28/2021 11:05 AM [facility] Protein Total 8.6(H) 6.4 - 8.3 gm/dL 08/28/2021 11:05 AM [facility] Albumin 4.0 3.5 - 5.2 gm/dL 08/28/2021 11:05 AM [facility] Bilirubin Total 0.3 0.2 - 1.2 mg/dL 08/28/2021 11:05 AM [facility] eGFR by CKD-EPI >90 >=90 mL/min/1.7 3 m2 08/28/2021 11:05 AM [facility] Blood BLOOD SPECIMEN / Unknown Venipuncture / Unknown 08/28/2021 3:00 AM CDT 08/28/2021 10:29 AM T [facility] - 08/28/2021 11:05 AM T eGFR result was calculated using the updated CKD-EPI Creatinine Equations (2020). Prior to go live 2021 the eGFR was calculated using the MDRD calculation. Please note Reference Range change. Vinicio Quintanilla MD LAB - CHEMISTRY JOSE ENRIQUE VELA [facility] Organization Address City/State/ZIP Co de Phone Number [facility] [address] [place] [address] documented in this encounter Visit Diagnoses Not on filedocumented in this encounter Care Teams Store Gift Wrap Associate Relationship Specialty Start Date End Date Pepe Martel MD [address] [place] [address] PCP - General 08/14/16 documented as of this encounter
--- OUTSIDE RECORDS SUMMARY | 2024-08-23 06:09 | XMS_ITS | Encounter Summary ---
Author Organization [facility] Address [address] [place] [address] Care Team Providers Care Chrome Plater Helper Name Role Phone Pepe Martel MD Primary Care Provider [phone] Encounter Details Date Type Department Care Team (Late st Contact Info) Description 11/10/2021 Lab Requisition [facility] [address] [place] [address] [place] [address] [place] [address] Social History Tobacco Use Types Packs/Day Years [...] - 5.40 x10E12/L 11/10/2021 10:38 AM CDT [facility] Hemoglobin 11.2(L) 12.0 - 17.6 [...] - 416 x10E9/L 11/10/2021 10:38 AM CDT [facility] RDW-CV 13.4 12.1 - 14.9 % 11/10/2021 10:38 AM CDT [facility] MPV 10.5 9.4 - 12.9 fl 11/10/2021 10:38 AM CDT [facility] Neutrophils % 54.2 44.0 - 73.0 % 11/10/2021 10:38 AM CDT [facility] Lymphocytes % 24.4 20.0 - 43.0 % 11/10/2021 10:38 AM CDT [facility] Monocytes % 16.1(H) 5.0 - 13.0 % 11/10/2021 10:38 AM CDT [facility] Eosinophils % 4.7 0.0 - 6.0 % 11/10/2021 10:38 AM CDT [facility] Basophils % 0.4 0.0 - 2.0 % 11/10/2021 10:38 AM CDT [facility] Immature Granulocytes 0.2 0 - 1 % 11/10/2021 10:38 AM CDT [facility] Neutrophil Absolute 2.86 2.01 - 7.14 x10E9/L 11/10/2021 10:38 AM CDT [facility] Lymphocytes Absolute 1.29 1.07 - 3.94 x10E9/L 11/10/2021 10:38 AM CDT [facility] Monocytes Absolute 0.85 0.26 - 1.07 x10E9/L 11/10/2021 10:38 AM CDT [facility] Eosinophils Absolute 0.25 0 - 0.47 x10E9/L 11/10/2021 10:38 AM CDT [facility] Basophils Absolute 0.02 0 - 0.08 x10E9/L 11/10/2021 10:38 AM CDT [facility] Immature Granulocytes Absolute 0.01 0.00 - 0.06 x10E9/L 11/10/2021 10:38 AM CDT [facility] nRBC Auto 0 /100 WBC 11/10/2021 10:38 AM T [facility] Blood BLOOD SPECIMEN / Unknown Venipuncture / Unknown 11/10/2021 4:30 AM CDT 11/10/2021 8:51 AM CDT Vinicio Quintanilla MD LAB - HEMATOLOGY ORD ERABLES [facility] [address] [place] [address] * (ABNORMAL) COMPREHENSIVE METABOLIC PANEL (11/10/2021 4:30 AM CDT) [facility] Glucose 96 70 - 105 mg/dL 11/10/2021 11:05 AM CDT [facility] Sodium 138 136 - 145 mmol/L 11/10/2021 11:05 AM [facility] Potassium 4.7 3.5 - 5.1 mmol/L 11/10/2021 11:05 AM [facility] Chloride 104 98 - 107 mmol/L 11/10/2021 11:05 AM [facility] CO2 23 23 - 31 mmol/L 11/10/2021 11:05 AM [facility] Calcium 9.8 8.4 - 10.4 mg/dL 11/10/2021 11:05 AM [facility] Anion Gap 11 8 - 18 mmol/L 11/10/2021 11:05 AM [facility] BUN 24(H) 8.9 - 20.6 mg/dL 11/10/2021 11:05 AM [facility] Creatinine 0.88 0.72 - 1.25 mg/dL 11/10/2021 11:05 AM [facility] Alkaline Phosphatase 139 40 - 150 U/L 11/10/2021 11:05 AM [facility] ALT 35 0 - 61 U/L 11/10/2021 11:05 AM [facility] AST 23 5 - 34 U/L 11/10/2021 11:05 AM [facility] Protein Total 7.2 6.4 - 8.3 gm/dL 11/10/2021 11:05 AM [facility] Albumin 3.5 3.5 - 5.2 gm/dL 11/10/2021 11:05 AM [facility] Bilirubin Total 0.2 0.2 - 1.2 mg/dL 11/10/2021 11:05 AM [facility] eGFR by CKD-EPI >90 >=90 mL/min/1.7 3 m2 11/10/2021 11:05 AM [facility] Blood BLOOD SPECIMEN / Unknown Venipuncture / Unknown 11/10/2021 4:30 AM T 11/10/2021 8:51 AM T Vinicio Quintanilla MD LAB - CHEMISTRY JOSE ENRIQUE VELA [facility] Organization Address City/State/ZIP Co de Phone Number [facility] [address] [place] [address] documented in this encounter Visit Diagnoses Not on filedocumented in this encounter Care Teams Chrome Plater Helper Relationship Specialty Start Date End Date Pepe Martel MD [address] [place] [phone] PCP - General 08/14/16 documented as of this encounter
--- OUTSIDE RECORDS SUMMARY | 2024-08-23 06:09 | XMS_ITS | Encounter Summary ---
Author Organization [facility] Address [address] [place] [address] Care Team Providers Care Scarf And Anneal Operator Name Role Phone Pepe Martel MD Primary Care Provider [phone] Encounter Details Date Type Department Care Team (Late st Contact Info) Description 10/20/2021 Lab Requisition [facility] [address] [place] [address] [place] [address] [place] [address] Social History Tobacco Use Types Packs/Day Years [...] - 43.0 % 10/20/2021 9:28 AM CDT [facility] Monocytes % 8.9 5.0 - 13.0 % 10/20/2021 9:28 AM CDT [facility] Eosinophils % 2.9 0.0 - 6.0 % 10/20/2021 9:28 AM CDT [facility] Basophils % 0.4 0.0 - 2.0 % 10/20/2021 9:28 AM CDT [facility] Immature Granulocytes 0.1 0 - 1 % 10/20/2021 9:28 AM CDT [facility] Neutrophil Absolute 5.05 2.01 - 7.14 x10E9/L 10/20/2021 9:28 AM CDT [facility] Lymphocytes Absolute 2.27 1.07 - 3.94 x10E9/L 10/20/2021 9:28 AM CDT [facility] Monocytes Absolute 0.74 0.26 - 1.07 x10E9/L 10/20/2021 9:28 AM CDT [facility] Eosinophils Absolute 0.24 0 - 0.47 x10E9/L 10/20/2021 9:28 AM CDT [facility] Basophils Absolute 0.03 0 - 0.08 x10E9/L 10/20/2021 9:28 AM CDT [facility] Immature Granulocytes Absolute 0.01 0.00 - 0.06 x10E9/L 10/20/2021 9:28 AM CDT [facility] nRBC Auto 0 /100 WBC 10/20/2021 9:28 AM CDT [facility] Blood BLOOD SPECIMEN / Unknown Venipuncture / Unknown 10/20/2021 3:35 AM CDT 10/20/2021 8:48 AM CDT Vinicio Quintanilla MD LAB - HEMATOLOGY ORD ERABLES [facility] [address] [place] [address] * (ABNORMAL) COMPREHENSIVE METABOLIC PANEL (10/20/2021 3:35 AM CDT) [facility] Glucose 93 70 - 105 mg/dL 10/20/2021 9:55 AM CDT [facility] Sodium 143 136 - 145 mmol/L 10/20/2021 9:55 [facility] Potassium 4.6 3.5 - 5.1 mmol/L 10/20/2021 9:55 AM CDT [facility] Chloride 105 98 - 107 mmol/L 10/20/2021 9:55 [facility] CO2 25 23 - 31 mmol/L 10/20/2021 9:55 AM [facility] Calcium 10.7(H) 8.4 - 10.4 mg/dL 10/20/2021 9:55 AM CDT [facility] Anion Gap 13 8 - 18 mmol/L 10/20/2021 9:55 AM CDT [facility] BUN 30(H) 8.9 - 20.6 mg/dL 10/20/2021 9:55 AM [facility] Creatinine 1.07 0.72 - 1.25 mg/dL 10/20/2021 9:55 AM [facility] Alkaline Phosphatase 156(H) 40 - 150 U/L 10/20/2021 9:55 AM CDT [facility] ALT 20 0 - 61 U/L 10/20/2021 9:55 [facility] AST 12 5 - 34 U/L 10/20/2021 9:55 AM [facility] Protein Total 7.9 6.4 - 8.3 gm/dL 10/20/2021 9:55 AM [facility] Albumin 3.9 3.5 - 5.2 gm/dL 10/20/2021 9:55 AM [facility] Bilirubin Total 0.3 0.2 - 1.2 mg/dL 10/20/2021 9:55 AM [facility] eGFR by CKD-EPI >90 >=90 mL/min/1.7 3 m2 10/20/2021 9:55 AM [facility] Blood BLOOD SPECIMEN / Unknown Venipuncture / Unknown 10/20/2021 3:35 AM CDT 10/20/2021 8:48 AM CDT Vinicio Quintanilla MD LAB - CHEMISTRY JOSE ENRIQUE VELA [facility] Organization Address City/State/ZIP Co de Phone Number [facility] [address] [place] [address] documented in this encounter Visit Diagnoses Not on filedocumented in this encounter Care Teams Scarf And Anneal Operator Relationship Specialty Start Date End Date Pepe Martel MD [address] [place] [phone] PCP - General 08/14/16 documented as of this encounter
--- OUTSIDE RECORDS SUMMARY | 2024-08-23 06:09 | XMS_ITS | Encounter Summary ---
Author Organization [facility] Address [address] [place] [address] Care Team Providers Care Senior Network Systems Engineer Name Role Phone Pepe Martel MD Primary Care Provider [phone] Encounter Details Date Type Department Care Team (Late st Contact Info) Description 10/30/2021 Lab Requisition [facility] [address] [place] [address] [place] [address] [place] [address] Social History Tobacco Use Types Packs/Day Years [...] - 43.0 % 10/30/2021 9:54 AM CDT [facility] Monocytes % 8.6 5.0 - 13.0 % 10/30/2021 9:54 AM CDT [facility] Eosinophils % 3.9 0.0 - 6.0 % 10/30/2021 9:54 AM CDT [facility] Basophils % 0.5 0.0 - 2.0 % 10/30/2021 9:54 AM CDT [facility] Immature Granulocytes 0.2 0 - 1 % 10/30/2021 9:54 AM CDT [facility] Neutrophil Absolute 3.44 2.01 - 7.14 x10E9/L 10/30/2021 9:54 AM CDT [facility] Lymphocytes Absolute 2.20 1.07 - 3.94 x10E9/L 10/30/2021 9:54 AM CDT [facility] Monocytes Absolute 0.56 0.26 - 1.07 x10E9/L 10/30/2021 9:54 AM CDT [facility] Eosinophils Absolute 0.25 0 - 0.47 x10E9/L 10/30/2021 9:54 AM CDT [facility] Basophils Absolute 0.03 0 - 0.08 x10E9/L 10/30/2021 9:54 AM CDT [facility] Immature Granulocytes Absolute 0.01 0.00 - 0.06 x10E9/L 10/30/2021 9:54 AM CDT [facility] nRBC Auto 0 /100 WBC 10/30/2021 9:54 AM CDT [facility] Blood BLOOD SPECIMEN / Unknown Venipuncture / Unknown 10/30/2021 5:34 AM CDT 10/30/2021 9:46 AM CDT Vinicio Quintanilla MD LAB - HEMATOLOGY ORD ERABLES [facility] [address] [place] [address] * (ABNORMAL) COMPREHENSIVE METABOLIC PANEL (10/30/2021 5:34 AM CDT) [facility] Glucose 122(H) 70 - 105 mg/dL 10/30/2021 10:16 AM CDT [facility] Sodium 141 136 - 145 mmol/L 10/30/2021 10:16 AM CDT [facility] Potassium 4.3 3.5 - 5.1 mmol/L 10/30/2021 10:16 AM CDT [facility] Chloride 104 98 - 107 mmol/L 10/30/2021 10:16 AM CDT [facility] CO2 24 23 - 31 mmol/L 10/30/2021 10:16 AM CDT [facility] Calcium 10.3 8.4 - 10.4 mg/dL 10/30/2021 10:16 AM CDT [facility] Anion Gap 13 8 - 18 mmol/L 10/30/2021 10:16 AM CDT [facility] BUN 30(H) 8.9 - 20.6 mg/dL 10/30[facility]21 [facility] Creatinine 1.12 0.72 - 1.25 mg/dL 10/30/2021 10:16 AM [facility] Alkaline Phosphatase 137 40 - 150 U/L 10/30/2021 10:16 AM CDT [facility] ALT 21 0 - 61 U/L 10/30/2021 10:16 AM CDT [facility] AST 12 5 - 34 U/L 10/30/2021 10:16 AM [facility] Protein Total 7.5 6.4 - 8.3 gm/dL 10/30/2021 10:16 AM [facility] Albumin 3.7 3.5 - 5.2 gm/dL 10/30/2021 10:16 AM [facility] Bilirubin Total 0.2 0.2 - 1.2 mg/dL 10/30/2021 10:16 AM [facility] eGFR by CKD-EPI 88(L) >=90 mL/min/1.7 3 m2 10/30/2021 10:16 AM [facility] Blood BLOOD SPECIMEN / Unknown Venipuncture / Unknown 10/30/2021 5:34 AM CDT 10/30/2021 9:46 AM CDT Vinicio Quintanilla MD LAB - CHEMISTRY JOSE ENRIQUE VELA [facility] Organization Address City/State/ZIP Co de Phone Number [facility] [address] [place] [address] documented in this encounter Visit Diagnoses Not on filedocumented in this encounter Care Teams Senior Network Systems Engineer Relationship Specialty Start Date End Date Pepe Martel MD [address] [place] [phone] PCP - General 08/14/16 documented as of this encounter
--- OUTSIDE RECORDS SUMMARY | 2024-08-23 06:09 | XMS_ITS | Encounter Summary ---
Author Organization [facility] Address [address] [place] [address] Care Team Providers Care Acquisition Lead Name Role Phone Pepe Martel MD Primary Care Provider [phone] Encounter Details Date Type Department Care Team (Late st Contact Info) Description 11/20/2021 Lab Requisition [facility] [address] [place] [address] Alverto Virgen MD [address] [place] [address] [place] [address] Social History Tobacco Use Types Packs/Day Years [...] - 5.2 gm/dL 11/20/2021 9:43 AM CDT [facility] Bilirubin Total 0.2 0.2 - 1.2 mg/dL 11/20/2021 9:43 AM CDT [facility] eGFR by CKD-EPI >90 >=90 mL/min/1.7 3 m2 11/20/2021 9:43 AM CDT [facility] Blood BLOOD SPECIMEN / Unknown Venipuncture / Unknown 11/20/2021 3:10 AM CDT 11/20/2021 8:55 AM CDT Alverto Virgen MD LAB - CHEMISTRY O RDERABLES Performing Organization Address City/State/[facility] Co de Phone Number [facility] [address] [place] [address] * (ABNORMAL) CBC WITH DIFFERENTIAL (11/20/2021 3:10 AM CDT) WBC 8.0 4.4 - 10.7 x10E9/L 11/20/2021 9:21 AM CDT [facility] WBC Corrected 11/20/2021 9:21 AM CDT [facility] RBC 3.90 3.80 - 5.40 x10E12/L 11/20/2021 9:21 AM CDT [facility] Hemoglobin 10.5(L) 12.0 - 17.6 gm/dL 11/20/2021 9:21 AM CDT [facility] Hematocrit 33.0(L) 35.2 - 51.7 % 11/20/2021 9:21 AM CDT [facility] MCV 84.6 80.7 - 98.3 fl 11/20/2021 9:21 AM CDT [facility] MCH 26.9 26.7 - 34.0 pg 11/20/2021 9:21 AM CDT [facility] MCHC 31.8 30.8 - 35.9 gm/dL 11/20/2021 9:21 AM CDT [facility] Platelet Count 475(H) 153 - 416 x10E9/L 11/20/2021 9:21 AM CDT [facility] RDW-CV 13.2 12.1 - 14.9 % 11/20/2021 9:21 AM CDT [facility] MPV 10.1 9.4 - 12.9 fl 11/20/2021 9:21 AM CDT [facility] Neutrophils % 59.0 44.0 - 73.0 % 11/20/2021 9:21 AM CDT [facility] Lymphocytes % 26.7 20.0 - 43.0 % 11/20/2021 9:21 AM CDT [facility] Monocytes % 11.4 5.0 - 13.0 % 11/20/2021 9:21 AM CDT [facility] Eosinophils % 2.4 0.0 - 6.0 % 11/20/2021 9:21 AM CDT [facility] Basophils % 0.4 0.0 - 2.0 % 11/20/2021 9:21 AM CDT [facility] Immature Granulocytes 0.1 0 - 1 % 11/20/2021 9:21 AM CDT [facility] Neutrophil Absolute 4.70 2.01 - 7.14 x10E9/L 11/20/2021 9:21 AM CDT [facility] Lymphocytes Absolute 2.13 1.07 - 3.94 x10E9/L 11/20/2021 9:21 AM CDT [facility] Monocytes Absolute 0.91 0.26 - 1.07 x10E9/L 11/20/2021 9:21 AM CDT [facility] Eosinophils Absolute 0.19 0 - 0.47 x10E9/L 11/20/2021 9:21 AM CDT [facility] Basophils Absolute 0.03 0 - 0.08 x10E9/L 11/20/2021 9:21 AM T [facility] Immature Granulocytes Absolute 0.01 0.00 - 0.06 x10E9/L 11/20/2021 9:21 AM T [facility] nRBC Auto 0 /100 WBC 11/20/2021 9:21 AM T [facility] Blood BLOOD SPECIMEN / Unknown Venipuncture / Unknown 11/20/2021 3:10 AM CDT 11/20/2021 8:55 AM CDT Alverto Virgen MD LAB - HEMATOLOGY ORDERABLES Performing Organization Address City/State/[facility] Co de Phone Number [facility] [address] [place] [address] documented in this encounter Visit Diagnoses Not on filedocumented in this encounter Care Teams Acquisition Lead Relationship Specialty Start Date End Date Pepe Martel MD [address] [place] [phone] PCP - General 08/14/16 documented as of this encounter
--- OUTSIDE RECORDS SUMMARY | 2024-08-23 06:09 | XMS_ITS | Encounter Summary ---
Author Organization [facility] Address [address] [place] [address] Care Team Providers Care Web Operations Specialist Name Role Phone Pepe Martel MD Primary Care Provider [phone] Encounter Details Date Type Department Care Team (Late st Contact Info) Description 08/25/2021 Lab Requisition [facility] [address] [place] [address] [place] [address] [place] [address] Social History Tobacco Use Types Packs/Day Years [...] - 5.40 x10E12/L 08/25/2021 10:23 AM CDT [facility] Hemoglobin 12.2 12.0 - 17.6 gm/dL [...] - 416 x10E9/L 08/25/2021 10:23 AM CDT [facility] RDW-CV 14.9 12.1 - 14.9 % 08/25/2021 10:23 AM CDT [facility] MPV 10.1 9.4 - 12.9 fl 08/25/2021 10:23 AM CDT [facility] Neutrophils % 61.9 44.0 - 73.0 % 08/25/2021 10:23 AM CDT [facility] Lymphocytes % 23.1 20.0 - 43.0 % 08/25/2021 10:23 AM CDT [facility] Monocytes % 11.0 5.0 - 13.0 % 08/25/2021 10:23 AM CDT [facility] Eosinophils % 3.3 0.0 - 6.0 % 08/25/2021 10:23 AM CDT [facility] Basophils % 0.4 0.0 - 2.0 % 08/25/2021 10:23 AM CDT [facility] Immature Granulocytes 0.3 0 - 1 % 08/25/2021 10:23 AM CDT [facility] Neutrophil Absolute 4.72 2.01 - 7.14 x10E9/L 08/25/2021 10:23 AM CDT [facility] Lymphocytes Absolute 1.76 1.07 - 3.94 x10E9/L 08/25/2021 10:23 AM CDT [facility] Monocytes Absolute 0.84 0.26 - 1.07 x10E9/L 08/25/2021 10:23 AM CDT [facility] Eosinophils Absolute 0.25 0 - 0.47 x10E9/L 08/25/2021 10:23 AM CDT [facility] Basophils Absolute 0.03 0 - 0.08 x10E9/L 08/25/2021 10:23 AM CDT [facility] Immature Granulocytes Absolute 0.02 0.00 - 0.06 x10E9/L 08/25/2021 10:23 AM CDT [facility] nRBC Auto 0 /100 WBC 08/25/2021 10:23 AM CDT [facility] Blood BLOOD SPECIMEN / Unknown Venipuncture / Unknown 08/25/2021 5:37 AM CDT 08/25/2021 9:40 AM CDT iVnicio Quintanilla MD LAB - HEMATOLOGY ORD ERABLES [facility] [address] [place] [address] * (ABNORMAL) COMPREHENSIVE METABOLIC PANEL (08/25/2021 5:37 AM CDT) [facility] Glucose 93 70 - 105 mg/dL 08/25/2021 10:43 AM CDT [facility] Sodium 141 136 - 145 mmol/L 08/25/2021 10:43 AM T [facility] Potassium 4.9 3.5 - 5.1 mmol/L 08/25/2021 10:43 AM [facility] Chloride 100 98 - 107 mmol/L 08/25/2021 10:43 AM T [facility] CO2 23 23 - 31 mmol/L 08/25/2021 10:43 AM [facility] Calcium 10.3 8.4 - 10.4 mg/dL 08/25/2021 10:43 AM [facility] Anion Gap 18 8 - 18 mmol/L 08/25/2021 10:43 AM T [facility] BUN 27(H) 8.9 - 20.6 mg/dL 08/25/2021 10:43 AM [facility] Creatinine 0.85 0.72 - 1.25 mg/dL 08/25/2021 10:43 AM [facility] Alkaline Phosphatase 162(H) 40 - 150 U/L 08/25/2021 10:43 AM [facility] ALT 24 0 - 61 U/L 08/25/2021 10:43 AM [facility] AST 17 5 - 34 U/L 08/25/2021 10:43 AM [facility] Protein Total 8.1 6.4 - 8.3 gm/dL 08/25/2021 10:43 AM [facility] Albumin 3.8 3.5 - 5.2 gm/dL 08/25/2021 10:43 AM [facility] Bilirubin Total 0.2 0.2 - 1.2 mg/dL 08/25/2021 10:43 AM [facility] eGFR by CKD-EPI >90 >=90 mL/min/1.7 3 m2 08/25/2021 10:43 AM [facility] Blood BLOOD SPECIMEN / Unknown Venipuncture / Unknown 08/25/2021 5:37 AM CDT 08/25/2021 9:40 AM CDT [facility] - 08/25/2021 10:43 AM T eGFR result was calculated using the updated CKD-EPI Creatinine Equations (2020). Prior to go live 2021 the eGFR was calculated using the MDRD calculation. Please note Reference Range change. Vinicio Quintanilla MD LAB - CHEMISTRY JOSE ENRIQUE VELA [facility] Organization Address City/State/ZIP Co de Phone Number [facility] [address] [place], [place] [id number] documented in this encounter Visit Diagnoses Not on filedocumented in this encounter Care Teams Web Operations Specialist Relationship Specialty Start Date End Date Pepe Martel MD [address] [place] [phone] PCP - General 08/14/16 documented as of this encounter
--- OUTSIDE RECORDS SUMMARY | 2024-08-23 06:09 | XMS_ITS | Encounter Summary ---
Author Organization [facility] Address [address] [place] [address] Care Team Providers Care Scrap Crane Operator Name Role Phone Pepe Martel MD Primary Care Provider [phone] Encounter Details Date Type Department Care Team (Late st Contact Info) Description 09/15/2021 Lab Requisition [facility] [address] [place] [address] [place] [address] [place] [address] Social History Tobacco Use Types Packs/Day Years [...] 5.40 x10E12/L 09/15/2021 10:35 AM CDT [facility] Hemoglobin 11.1(L) 12.0 - 17.6 gm/dL [...] 416 x10E9/L 09/15/2021 10:35 AM CDT [facility] RDW-CV 14.2 12.1 - 14.9 % 09/15/2021 10:35 AM CDT [facility] MPV 10.3 9.4 - 12.9 fl 09/15/2021 10:35 AM CDT [facility] Neutrophils % 65.9 44.0 - 73.0 % 09/15/2021 10:35 AM CDT [facility] Lymphocytes % 21.5 20.0 - 43.0 % 09/15/2021 10:35 AM CDT [facility] Monocytes % 9.4 5.0 - 13.0 % 09/15/2021 10:35 AM CDT [facility] Eosinophils % 2.6 0.0 - 6.0 % 09/15/2021 10:35 AM CDT [facility] Basophils % 0.4 0.0 - 2.0 % 09/15/2021 10:35 AM CDT [facility] Immature Granulocytes 0.2 0 - 1 % 09/15/2021 10:35 AM CDT [facility] Neutrophil Absolute 5.85 2.01 - 7.14 x10E9/L 09/15/2021 10:35 AM CDT [facility] Lymphocytes Absolute 1.91 1.07 - 3.94 x10E9/L 09/15/2021 10:35 AM CDT [facility] Monocytes Absolute 0.84 0.26 - 1.07 x10E9/L 09/15/2021 10:35 AM CDT [facility] Eosinophils Absolute 0.23 0 - 0.47 x10E9/L 09/15/2021 10:35 AM CDT [facility] Basophils Absolute 0.04 0 - 0.08 x10E9/L 09/15/2021 10:35 AM CDT [facility] Immature Granulocytes Absolute 0.02 0.00 - 0.06 x10E9/L 09/15/2021 10:35 AM CDT [facility] nRBC Auto 0 /100 WBC 09/15/2021 10:35 AM T [facility] Blood BLOOD SPECIMEN / Unknown Venipuncture / Unknown 09/15/2021 4:30 AM CDT 09/15/2021 8:22 AM CDT Vinicio Quintanilla MD LAB - HEMATOLOGY ORD ERABLES [facility] [address] [place] [address] * (ABNORMAL) COMPREHENSIVE METABOLIC PANEL (09/15/2021 4:30 AM CDT) [facility] Glucose 99 70 - 105 mg/dL 09/15/2021 10:51 AM CDT [facility] Sodium 142 136 - 145 mmol/L 09/15/2021 10:51 AM CDT [facility] Potassium 4.5 3.5 - 5.1 mmol/L 09/15/2021 10:51 AM CDT [facility] Chloride 103 98 - 107 mmol/L 09/15/2021 10:51 AM CDT [facility] CO2 28 23 - 31 mmol/L 09/15/2021 10:51 AM CDT [facility] Calcium 10.3 8.4 - 10.4 mg/dL 09/15/2021 10:51 AM CDT [facility] Anion Gap 11 8 - 18 mmol/L 09/15/2021 10:51 AM CDT [facility] BUN 29(H) 8.9 - 20.6 mg/dL 09/15/2021 10:51 AM CDT [facility] Creatinine 1.01 0.72 - 1.25 mg/dL 09/15/2021 10:51 AM CDT [facility] Alkaline Phosphatase 155(H) 40 - 150 U/L 09/15/2021 10:51 AM CDT [facility] ALT 24 0 - 61 U/L 09/15/2021 10:51 AM CDT [facility] AST 14 5 - 34 U/L 09/15/2021 10:51 AM CDT [facility] Protein Total 7.7 6.4 - 8.3 gm/dL 09/15/2021 10:51 AM CDT [facility] Albumin 3.8 3.5 - 5.2 gm/dL 09/15/2021 10:51 AM T [facility] Bilirubin Total 0.2 0.2 - 1.2 mg/dL 09/15/2021 10:51 AM CDT [facility] eGFR by CKD-EPI >90 >=90 mL/min/1.7 3 m2 09/15/2021 10:51 AM T [facility] Blood BLOOD SPECIMEN / Unknown Venipuncture / Unknown 09/15/2021 4:30 AM CDT 09/15/2021 8:22 AM CDT [facility] - 09/15/2021 10:51 AM CDT eGFR result was calculated using the updated CKD-EPI Creatinine Equations (2020). Prior to go live 2021 the eGFR was calculated using the MDRD calculation. Please note Reference Range change. Vinicio Quintanilla MD LAB - CHEMISTRY JOSE ENRIQUE VELA [facility] Organization Address City/State/ZIP Co de Phone Number [facility] [address] [place] [address] documented in this encounter Visit Diagnoses Not on filedocumented in this encounter Care Teams Scrap Crane Operator Relationship Specialty Start Date End Date Pepe Martel MD [address] [place] [address] [address] [place] [address] PCP - General 08/14/16 documented as of this encounter
--- OUTSIDE RECORDS SUMMARY | 2024-08-23 06:09 | XMS_ITS | Encounter Summary ---
Author Organization [facility] Address [address] [place] [address] Care Team Providers Care Associate Professor Of Biblical Studies Name Role Phone Pepe Martel MD Primary Care Provider [phone] Encounter Details Date Type Department Care Team (Late st Contact Info) Description 09/08/2021 Lab Requisition [facility] [address] [place] [address] [place] [address] [place] [address] Social History Tobacco Use Types Packs/Day Years [...] - 43.0 % 09/08/2021 9:39 AM CDT [facility] Monocytes % 11.4 5.0 - 13.0 % 09/08/2021 9:39 AM CDT [facility] Eosinophils % 3.0 0.0 - 6.0 % 09/08/2021 9:39 AM CDT [facility] Basophils % 0.4 0.0 - 2.0 % 09/08/2021 9:39 AM CDT [facility] Immature Granulocytes 0.4 0 - 1 % 09/08/2021 9:39 AM CDT [facility] Neutrophil Absolute 4.51 2.01 - 7.14 x10E9/L 09/08/2021 9:39 AM CDT [facility] Lymphocytes Absolute 1.99 1.07 - 3.94 x10E9/L 09/08/2021 9:39 AM CDT [facility] Monocytes Absolute 0.87 0.26 - 1.07 x10E9/L 09/08/2021 9:39 AM CDT [facility] Eosinophils Absolute 0.23 0 - 0.47 x10E9/L 09/08/2021 9:39 AM CDT [facility] Basophils Absolute 0.03 0 - 0.08 x10E9/L 09/08/2021 9:39 AM CDT [facility] Immature Granulocytes Absolute 0.03 0.00 - 0.06 x10E9/L 09/08/2021 9:39 AM CDT [facility] nRBC Auto 0 /100 WBC 09/08/2021 9:39 AM CDT [facility] Blood BLOOD SPECIMEN / Unknown Venipuncture / Unknown 09/08/2021 4:50 AM CDT 09/08/2021 9:12 AM CDT Vinicio Quintanilla MD LAB - HEMATOLOGY ORD ERABLES [facility] [address] [place] [address] * (ABNORMAL) COMPREHENSIVE METABOLIC PANEL (09/08/2021 4:50 AM CDT) [facility] Glucose 91 70 - 105 mg/dL 09/08/2021 10:10 AM CDT [facility] Sodium 139 136 - 145 mmol/L 09/08/2021 10:10 AM CDT [facility] Potassium 4.8 3.5 - 5.1 mmol/L 09/08/2021 10:10 AM CDT [facility] Chloride 101 98 - 107 mmol/L 09/08/2021 10:10 AM CDT [facility] CO2 27 23 - 31 mmol/L 09/08/2021 10:10 AM CDT [facility] Calcium 10.1 8.4 - 10.4 mg/dL 09/08/2021 10:10 AM CDT [facility] Anion Gap 11 8 - 18 mmol/L 09/08/2021 10:10 AM CDT [facility] BUN 28(H) 8.9 - 20.6 mg/dL 09/08/2021 10:10 AM CDT [facility] Creatinine 0.92 0.72 - 1.25 mg/dL 09/08/2021 10:10 AM T [facility] Alkaline Phosphatase 151(H) 40 - 150 U/L 09/08/2021 10:10 AM CDT [facility] ALT 31 0 - 61 U/L 09/08/2021 10:10 AM CDT [facility] AST 15 5 - 34 U/L 09/08/2021 10:10 AM T [facility] Protein Total 7.9 6.4 - 8.3 gm/dL 09/08/2021 10:10 AM T [facility] Albumin 3.8 3.5 - 5.2 gm/dL 09/08/2021 10:10 AM T [facility] Bilirubin Total 0.2 0.2 - 1.2 mg/dL 09/08/2021 10:10 AM [facility] eGFR by CKD-EPI >90 >=90 mL/min/1.7 3 m2 09/08/2021 10:10 AM [facility] Blood BLOOD SPECIMEN / Unknown Venipuncture / Unknown 09/08/2021 4:50 AM CDT 09/08/2021 9:12 AM CDT [facility] - 09/08/2021 10:10 AM CDT eGFR result was calculated using the updated CKD-EPI Creatinine Equations (2020). Prior to go live 2021 the eGFR was calculated using the MDRD calculation. Please note Reference Range change. Vinicio Quintanilla MD LAB - CHEMISTRY JOSE ENRIQUE VELA [facility] Organization Address City/State/ZIP Co de Phone Number [facility] [address] [place] [address] documented in this encounter Visit Diagnoses Not on filedocumented in this encounter Care Teams Associate Professor Of Biblical Studies Relationship Specialty Start Date End Date Pepe Martel MD [address] [place] [address] 3 [place] [address] PCP - General 08/14/16 documented as of this encounter
--- OUTSIDE RECORDS SUMMARY | 2024-08-23 06:09 | XMS_ITS | Encounter Summary ---
Author Organization [facility] Address [address] [place] [address] Care Team Providers Care Fire Captain Marine Name Role Phone Pepe Martel MD Primary Care Provider [phone] Encounter Details Date Type Department Care Team (Late st Contact Info) Description 11/03/2021 Lab Requisition [facility] [address] [place] [address] [place] [address] [place] [address] Social History Tobacco Use Types Packs/Day Years [...] - 43.0 % 11/03/2021 10:04 AM CDT [facility] Monocytes % 8.9 5.0 - 13.0 % 11/03/2021 10:04 AM CDT [facility] Eosinophils % 4.1 0.0 - 6.0 % 11/03/2021 10:04 AM CDT [facility] Basophils % 0.3 0.0 - 2.0 % 11/03/2021 10:04 AM CDT [facility] Immature Granulocytes 0.3 0 - 1 % 11/03/2021 10:04 AM CDT [facility] Neutrophil Absolute 3.81 2.01 - 7.14 x10E9/L 11/03/2021 10:04 AM CDT [facility] Lymphocytes Absolute 1.93 1.07 - 3.94 x10E9/L 11/03/2021 10:04 AM CDT [facility] Monocytes Absolute 0.59 0.26 - 1.07 x10E9/L 11/03/2021 10:04 AM T [facility] Eosinophils Absolute 0.27 0 - 0.47 x10E9/L 11/03/2021 10:04 AM CDT [facility] Basophils Absolute 0.02 0 - 0.08 x10E9/L 11/03/2021 10:04 AM CDT [facility] Immature Granulocytes Absolute 0.02 0.00 - 0.06 x10E9/L 11/03/2021 10:04 AM CDT [facility] nRBC Auto 0 /100 WBC 11/03/2021 10:04 AM T [facility] Blood BLOOD SPECIMEN / Unknown Venipuncture / Unknown 11/03/2021 4:02 AM CDT 11/03/2021 8:58 AM CDT Vinicio Quintanilla MD LAB - HEMATOLOGY ORD ERABLES [facility] [address] [place] [address] * (ABNORMAL) COMPREHENSIVE METABOLIC PANEL (11/03/2021 4:02 AM CDT) [facility] Glucose 108(H) 70 - 105 mg/dL 11/03/2021 10:27 AM CDT [facility] Sodium 140 136 - 145 mmol/L 11/03/2021 10:27 AM CDT [facility] Potassium 4.3 3.5 - 5.1 mmol/L 11/03/2021 10:27 AM [facility] Chloride 103 98 - 107 mmol/L 11/03/2021 10:27 AM [facility] CO2 25 23 - 31 mmol/L 11/03/2021 10:27 AM [facility] Calcium 10.6(H) 8.4 - 10.4 mg/dL 11/03/2021 10:27 AM [facility] Anion Gap 12 8 - 18 mmol/L 11/03/2021 10:27 AM T [facility] BUN 32(H) 8.9 - 20.6 mg/dL 11/03/2021 10:27 AM [facility] Creatinine 1.09 0.72 - 1.25 mg/dL 11/03/2021 10:27 AM [facility] Alkaline Phosphatase 132 40 - 150 U/L 11/03/2021 10:27 AM [facility] ALT 18 0 - 61 U/L 11/03/2021 10:27 AM [facility] AST 11 5 - 34 U/L 11/03/2021 10:27 AM [facility] Protein Total 7.3 6.4 - 8.3 gm/dL 11/03/2021 10:27 AM [facility] Albumin 3.7 3.5 - 5.2 gm/dL 11/03/2021 10:27 AM [facility] Bilirubin Total 0.2 0.2 - 1.2 mg/dL 11/03/2021 10:27 AM [facility] eGFR by CKD-EPI >90 >=90 mL/min/1.7 3 m2 11/03/2021 10:27 AM [facility] Blood BLOOD SPECIMEN / Unknown Venipuncture / Unknown 11/03/2021 4:02 AM CDT 11/03/2021 8:58 AM T Vinicio Quintanilla MD LAB - CHEMISTRY JOSE ENRIQUE VELA [facility] Organization Address City/State/ZIP Co de Phone Number [facility] [address] [place] [address] documented in this encounter Visit Diagnoses Not on filedocumented in this encounter Care Teams Fire Captain Marine Relationship Specialty Start Date End Date Pepe Martel MD [facility] [address] [address] PCP - General 08/14/16 documented as of this encounter
--- OUTSIDE RECORDS SUMMARY | 2024-08-23 06:09 | XMS_ITS | Encounter Summary ---
Author Organization [facility] Address [address] [address] Care Team Providers Care Registered Nurse Ambulatory Name Role Phone Pepe Martel MD Primary Care Provider [phone] Encounter Details Date Type Department Care Team (Late st Contact Info) Description 11/06/2021 Lab Requisition [facility] [address] [place] [address] [place] [address] [place] [address] Social History Tobacco Use Types Packs/Day Years [...] - 43.0 % 11/06/2021 8:57 AM CDT [facility] Monocytes % 9.4 5.0 - 13.0 % 11/06/2021 8:57 AM CDT [facility] Eosinophils % 2.9 0.0 - 6.0 % 11/06/2021 8:57 AM CDT [facility] Basophils % 0.3 0.0 - 2.0 % 11/06/2021 8:57 AM CDT [facility] Immature Granulocytes 0.1 0 - 1 % 11/06/2021 8:57 AM CDT [facility] Neutrophil Absolute 5.92 2.01 - 7.14 x10E9/L 11/06/2021 8:57 AM CDT [facility] Lymphocytes Absolute 1.77 1.07 - 3.94 x10E9/L 11/06/2021 8:57 AM CDT [facility] Monocytes Absolute 0.83 0.26 - 1.07 x10E9/L 11/06/2021 8:57 AM CDT [facility] Eosinophils Absolute 0.26 0 - 0.47 x10E9/L 11/06/2021 8:57 AM CDT [facility] Basophils Absolute 0.03 0 - 0.08 x10E9/L 11/06/2021 8:57 AM CDT [facility] Immature Granulocytes Absolute 0.01 0.00 - 0.06 x10E9/L 11/06/2021 8:57 AM CDT [facility] nRBC Auto 0 /100 WBC 11/06/2021 8:57 AM CDT [facility] Blood BLOOD SPECIMEN / Unknown Venipuncture / Unknown 11/06/2021 3:25 AM CDT 11/06/2021 8:47 AM CDT Vinicio Quintanilla MD LAB - HEMATOLOGY ORD ERABLES [facility] [address] [place] [address] * (ABNORMAL) COMPREHENSIVE METABOLIC PANEL (11/06/2021 3:25 AM CDT) [facility] Glucose 114(H) 70 - 105 mg/dL 11/06/2021 9:16 AM CDT [facility] Sodium 141 136 - 145 mmol/L 11/06/2021 9:16 AM CDT [facility] Potassium 4.3 3.5 - 5.1 mmol/L 11/06/2021 9:16 AM CDT [facility] Chloride 104 98 - 107 mmol/L 11/06/2021 9:16 AM CDT [facility] CO2 23 23 - 31 mmol/L 11/06/2021 9:16 AM CDT [facility] Calcium 10.4 8.4 - 10.4 mg/dL 11/06/2021 9:16 AM CDT [facility] Anion Gap 14 8 - 18 mmol/L 11/06/2021 9:16 AM CDT [facility] BUN 33(H) 8.9 - 20.6 mg/dL 11/06/2021 9:16 AM CDT [facility] Creatinine 1.09 0.72 - 1.25 mg/dL 11/06/2021 9:16 AM CDT [facility] Alkaline Phosphatase 144 40 - 150 U/L 11/06/2021 9:16 AM CDT [facility] ALT 22 0 - 61 U/L 11/06/2021 9:16 AM CDT [facility] AST 13 5 - 34 U/L 11/06/2021 9:16 AM CDT [facility] Protein Total 7.6 6.4 - 8.3 gm/dL 11/06/2021 9:16 AM CDT [facility] Albumin 3.9 3.5 - 5.2 gm/dL 11/06/2021 9:16 AM CDT [facility] Bilirubin Total 0.3 0.2 - 1.2 mg/dL 11/06/2021 9:16 AM T [facility] eGFR by CKD-EPI >90 >=90 mL/min/1.7 3 m2 11/06/2021 9:16 AM T [facility] Blood BLOOD SPECIMEN / Unknown Venipuncture / Unknown 11/06/2021 3:25 AM CDT 11/06/2021 8:47 AM CDT Vinicio Quintanilla MD LAB - CHEMISTRY JOSE ENRIQUE VELA [facility] Organization Address City/State/ZIP Co de Phone Number [facility] [address] [place] [address] documented in this encounter Visit Diagnoses Not on filedocumented in this encounter Care Teams Registered Nurse Ambulatory Relationship Specialty Start Date End Date Pepe Martel MD [address] [place] [address] PCP - General 08/14/16 documented as of this encounter
--- OUTSIDE RECORDS SUMMARY | 2024-08-23 06:09 | XMS_ITS | Encounter Summary ---
Author Organization [facility] Address [address] [place] [address] Care Team Providers Care Almond Grinder Name Role Phone Pepe Martel MD Primary Care Provider [phone] Encounter Details Date Type Department Care Team (Late st Contact Info) Description 09/11/2021 Lab Requisition [facility] [address] [place] [address] [place] [address] [place] [address] Social History Tobacco Use Types Packs/Day Years [...] - 5.40 x10E12/L 09/11/2021 10:16 AM CDT [facility] Hemoglobin 11.6(L) 12.0 - 17.6 gm/dL 09/11/2021 10:16 AM CDT [facility] Hematocrit 37.8 35.2 - 51.7 % 09/11/2021 10:16 AM CDT [facility] MCV 86.1 80.7 - 98.3 fl 09/11/2021 10:16 AM CDT [facility] MCH 26.4(L) 26.7 - 34.0 pg 09/11/2021 10:16 AM CDT [facility] MCHC 30.7(L) 30.8 - 35.9 gm/dL 09/11/2021 10:16 AM CDT [facility] Platelet Count 469(H) 153 - 416 x10E9/L 09/11/2021 10:16 AM CDT [facility] RDW-CV 14.2 12.1 - 14.9 % 09/11/2021 10:16 AM CDT [facility] MPV 10.1 9.4 - 12.9 fl 09/11/2021 10:16 AM CDT [facility] Neutrophils % 63.0 44.0 - 73.0 % 09/11/2021 10:16 AM CDT [facility] Lymphocytes % 23.4 20.0 - 43.0 % 09/11/2021 10:16 AM CDT [facility] Monocytes % 10.4 5.0 - 13.0 % 09/11/2021 10:16 AM CDT [facility] Eosinophils % 2.7 0.0 - 6.0 % 09/11/2021 10:16 AM CDT [facility] Basophils % 0.4 0.0 - 2.0 % 09/11/2021 10:16 AM CDT [facility] Immature Granulocytes 0.1 0 - 1 % 09/11/2021 10:16 AM CDT [facility] Neutrophil Absolute 4.91 2.01 - 7.14 x10E9/L 09/11/2021 10:16 AM CDT [facility] Lymphocytes Absolute 1.82 1.07 - 3.94 x10E9/L 09/11/2021 10:16 AM CDT [facility] Monocytes Absolute 0.81 0.26 - 1.07 x10E9/L 09/11/2021 10:16 AM CDT [facility] Eosinophils Absolute 0.21 0 - 0.47 x10E9/L 09/11/2021 10:16 AM CDT [facility] Basophils Absolute 0.03 0 - 0.08 x10E9/L 09/11/2021 10:16 AM CDT [facility] Immature Granulocytes Absolute 0.01 0.00 - 0.06 x10E9/L 09/11/2021 10:16 AM CDT [facility] nRBC Auto 0 /100 WBC 09/11/2021 10:16 AM CDT [facility] Blood BLOOD SPECIMEN / Unknown Venipuncture / Unknown 09/11/2021 4:30 AM CDT 09/11/2021 9:37 AM CDT Vinicio Quintanilla MD LAB - HEMATOLOGY ORD ERABLES [facility] [address] [place] [address] * (ABNORMAL) COMPREHENSIVE METABOLIC PANEL (09/11/2021 4:30 AM CDT) [facility] Glucose 93 70 - 105 mg/dL 09/11/2021 10:39 AM CDT [facility] Sodium 138 136 - 145 mmol/L 09/11/2021 10:39 AM CDT [facility] Potassium 4.7 3.5 - 5.1 mmol/L 09/11/2021 10:39 AM CDT [facility] Chloride 100 98 - 107 mmol/L 09/11/2021 10:39 AM CDT [facility] CO2 22(L) 23 - 31 mmol/L 09/11/2021 10:39 AM CDT [facility] Calcium 10.0 8.4 - 10.4 mg/dL 09/11/2021 10:39 AM CDT [facility] Anion Gap 16 8 - 18 mmol/L 09/11/2021 10:39 AM CDT [facility] BUN 29(H) 8.9 - 20.6 mg/dL 09/11/2021 10:39 AM CDT [facility] Creatinine 0.97 0.72 - 1.25 mg/dL 09/11/2021 10:39 AM CDT [facility] Alkaline Phosphatase 146 40 - 150 U/L 09/11/2021 10:39 AM CDT [facility] ALT 21 0 - 61 U/L 09/11/2021 10:39 AM CDT [facility] AST 16 5 - 34 U/L 09/11/2021 10:39 AM CDT [facility] Protein Total 7.7 6.4 - 8.3 gm/dL 09/11/2021 10:39 AM CDT [facility] Albumin 3.6 3.5 - 5.2 gm/dL 09/11/2021 10:39 AM T [facility] Bilirubin Total 0.2 0.2 - 1.2 mg/dL 09/11/2021 10:39 AM T [facility] eGFR by CKD-EPI >90 >=90 mL/min/1.7 3 m2 09/11/2021 10:39 AM T [facility] Blood BLOOD SPECIMEN / Unknown Venipuncture / Unknown 09/11/2021 4:30 AM CDT 09/11/2021 9:37 AM CDT [facility] - 09/11/2021 10:39 AM CDT eGFR result was calculated using the updated CKD-EPI Creatinine Equations (2020). Prior to go live 2021 the eGFR was calculated using the MDRD calculation. Please note Reference Range change. Vinicio Quintanilla MD LAB - CHEMISTRY JOSE ENRIQUE VELA [facility] Organization Address City/State/ZIP Co de Phone Number [facility] [address] [place] [address] documented in this encounter Visit Diagnoses Not on filedocumented in this encounter Care Teams Almond Grinder Relationship Specialty Start Date End Date Pepe Martel MD [address] [place] [address] [address] [place] [address] PCP - General 08/14/16 documented as of this encounter
--- OUTSIDE RECORDS SUMMARY | 2024-08-23 06:09 | XMS_ITS | Encounter Summary ---
Author Organization [facility] Address [address] [place] [address] Care Team Providers Care Room Attendant Name Role Phone Pepe Martel MD Primary Care Provider [phone] Encounter Details Date Type Department Care Team (Late st Contact Info) Description 08/14/2021 Lab Requisition [facility] [address] [place] [address] [place] [address] [place] [address] Social History Tobacco Use Types Packs/Day Years [...] - 416 x10E9/L 08/14/2021 12:07 PM CDT [facility] RDW-CV 15.4(H) 12.1 - 14.9 % 08/14/2021 12:07 PM CDT [facility] MPV 9.7 9.4 - 12.9 fl 08/14/2021 12:07 PM CDT [facility] Neutrophils % 73.3(H) 44.0 - 73.0 % 08/14/2021 12:07 PM CDT [facility] Lymphocytes % 16.1(L) 20.0 - 43.0 % 08/14/2021 12:07 PM CDT [facility] Monocytes % 7.6 5.0 - 13.0 % 08/14/2021 12:07 PM CDT [facility] Eosinophils % 2.6 0.0 - 6.0 % 08/14/2021 12:07 PM CDT [facility] Basophils % 0.2 0.0 - 2.0 % 08/14/2021 12:07 PM CDT [facility] Immature Granulocytes 0.2 0 - 1 % 08/14/2021 12:07 PM CDT [facility] Neutrophil Absolute 7.07 2.01 - 7.14 x10E9/L 08/14/2021 12:07 PM CDT [facility] Lymphocytes Absolute 1.55 1.07 - 3.94 x10E9/L 08/14/2021 12:07 PM CDT [facility] Monocytes Absolute 0.73 0.26 - 1.07 x10E9/L 08/14/2021 12:07 PM CDT [facility] Eosinophils Absolute 0.25 0 - 0.47 x10E9/L 08/14/2021 12:07 PM CDT [facility] Basophils Absolute 0.02 0 - 0.08 x10E9/L 08/14/2021 12:07 PM CDT [facility] Immature Granulocytes Absolute 0.02 0.00 - 0.06 x10E9/L 08/14/2021 12:07 PM CDT [facility] nRBC Auto 0 /100 WBC 08/14/2021 12:07 PM CDT [facility] Blood BLOOD SPECIMEN / Unknown Venipuncture / Unknown 08/14/2021 9:30 AM CDT 08/14/2021 12:02 PM CDT Vinicio Quintanilla MD LAB - HEMATOLOGY ORD ERABLES [facility] [address] [place] [address] documented in this encounter Visit Diagnoses Not on filedocumented in this encounter Care Teams Room Attendant Relationship Specialty Start Date End Date Pepe Martel MD [address] [place] [address] [address] [place] [address] PCP - General 3/31/17 documented as of this encounter
--- OUTSIDE RECORDS SUMMARY | 2024-08-23 06:09 | XMS_ITS | Encounter Summary ---
Author Organization [facility] Address [address] [place] [address] Care Team Providers Care Supervisor Knitting Name Role Phone Pepe Martel MD Primary Care Provider [phone] Encounter Details Date Type Department Care Team (Late st Contact Info) Description 09/04/2021 Lab Requisition [facility] [address] [place] [address] [place] [address] [place] [address] Social History Tobacco Use Types Packs/Day Years [...] - 5.1 mmol/L 09/04/2021 10:10 AM CDT [facility] Chloride 102 98 - 107 mmol/L 09/04/2021 10:10 AM CDT [facility] CO2 23 23 - 31 mmol/L 09/04/2021 10:10 AM CDT [facility] Calcium 10.2 8.4 - 10.4 mg/dL 09/04/2021 10:10 AM CDT [facility] Anion Gap 16 8 - 18 mmol/L 09/04/2021 10:10 AM CDT [facility] BUN 31(H) 8.9 - 20.6 mg/dL 09/04/2021 10:10 AM CDT [facility] Creatinine 0.95 0.72 - 1.25 mg/dL 09/04/2021 10:10 AM CDT [facility] Alkaline Phosphatase 151(H) 40 - 150 U/L 09/04/2021 10:10 AM CDT [facility] ALT 30 0 - 61 U/L 09/04/2021 10:10 AM CDT [facility] AST 17 5 - 34 U/L 09/04/2021 10:10 AM CDT [facility] Protein Total 7.9 6.4 - 8.3 gm/dL 09/04/2021 10:10 AM CDT [facility] Albumin 3.7 3.5 - 5.2 gm/dL 09/04/2021 10:10 AM CDT [facility] Bilirubin Total 0.2 0.2 - 1.2 mg/dL 09/04/2021 10:10 AM CDT [facility] eGFR by CKD-EPI >90 >=90 mL/min/1.7 3 m2 09/04/2021 10:10 AM CDT [facility] Blood BLOOD SPECIMEN / Unknown Venipuncture / Unknown 09/04/2021 3:10 AM CDT 09/04/2021 9:40 AM CDT Narrative [facility] - 09/04/2021 10:10 AM CDT eGFR result was calculated using the updated CKD-EPI Creatinine Equations (2020). Prior to go live 2021 the eGFR was calculated using the MDRD calculation. Please note Reference Range change. Vinicio Quintanilla MD LAB - CHEMISTRY JOSE ENRIQUE [facility] Organization Address City/State/ZIP Co de Phone Number [facility] [address] [place] [address] * (ABNORMAL) CBC WITH DIFFERENTIAL (09/04/2021 3:10 AM CDT) WBC 7.7 4.4 - 10.7 x10E9/L 09/04/2021 9:53 AM CDT [facility] WBC Corrected 09/04/2021 9:53 AM CDT [facility] RBC 4.39 3.80 - 5.40 x10E12/L 09/04/2021 9:53 AM CDT [facility] Hemoglobin 11.6(L) 12.0 - 17.6 gm/dL 09/04/2021 9:53 AM CDT [facility] Hematocrit 37.8 35.2 - 51.7 % 09/04/2021 9:53 AM CDT [facility] MCV 86.1 80.7 - 98.3 fl 09/04/2021 9:53 AM CDT [facility] MCH 26.4(L) 26.7 - 34.0 pg 09/04/2021 9:53 AM CDT [facility] MCHC 30.7(L) 30.8 - 35.9 gm/dL 09/04/2021 9:53 AM CDT [facility] Platelet Count 512(H) 153 - 416 x10E9/L 09/04/2021 9:53 AM [facility] RDW-CV 14.4 12.1 - 14.9 % 09/04/2021 9:53 AM [facility] MPV 10.1 9.4 - 12.9 fl 09/04/2021 9:53 AM [facility] Neutrophils % 58.5 44.0 - 73.0 % 09/04/2021 9:53 AM [facility] Lymphocytes % 27.7 20.0 - 43.0 % 09/04/2021 9:53 AM [facility] Monocytes % 10.1 5.0 - 13.0 % 09/04/2021 9:53 AM [facility] Eosinophils % 2.9 0.0 - 6.0 % 09/04/2021 9:53 AM [facility] Basophils % 0.5 0.0 - 2.0 % 09/04/2021 9:53 AM [facility] Immature Granulocytes 0.3 0 - 1 % 09/04/2021 9:53 AM [facility] Neutrophil Absolute 4.48 2.01 - 7.14 x10E9/L 09/04/2021 9:53 AM [facility] Lymphocytes Absolute 2.12 1.07 - 3.94 x10E9/L 09/04/2021 9:53 AM [facility] Monocytes Absolute 0.77 0.26 - 1.07 x10E9/L 09/04/2021 9:53 AM [facility] Eosinophils Absolute 0.22 0 - 0.47 x10E9/L 09/04/2021 9:53 AM [facility] Basophils Absolute 0.04 0 - 0.08 x10E9/L 09/04/2021 9:53 AM [facility] Immature Granulocytes Absolute 0.02 0.00 - 0.06 x10E9/L 09/04/2021 9:53 AM [facility] nRBC Auto 0 /100 WBC 09/04/2021 9:53 AM [facility] Blood BLOOD SPECIMEN / Unknown Venipuncture / Unknown 09/04/2021 3:10 AM CDT 09/04/2021 9:40 AM CDT Vinicio Quintanilla MD LAB - HEMATOLOGY ORD ERABLES [facility] [address] [place] [address] documented in this encounter Visit Diagnoses Not on filedocumented in this encounter Care Teams Supervisor Knitting Relationship Specialty Start Date End Date Pepe Martel MD [address] [place] [address] 3 [place] [address] PCP - General 08/14/16 documented as of this encounter
--- OUTSIDE RECORDS SUMMARY | 2024-08-23 06:09 | XMS_ITS | Encounter Summary ---
Author Organization [facility] Address [address] [place] [address] Care Team Providers Care Mannequin Mold Maker Name Role Phone Pepe Martel MD Primary Care Provider [phone] Encounter Details Date Type Department Care Team (Late st Contact Info) Description 10/23/2021 Lab Requisition [facility] [address] [place] [address] [place] [address] [place] [address] Social History Tobacco Use Types Packs/Day Years [...] - 43.0 % 10/23/2021 10:51 AM CDT [facility] Monocytes % 11.2 5.0 - 13.0 % 10/23/2021 10:51 AM CDT [facility] Eosinophils % 3.0 0.0 - 6.0 % 10/23/2021 10:51 AM CDT [facility] Basophils % 0.5 0.0 - 2.0 % 10/23/2021 10:51 AM CDT [facility] Immature Granulocytes 0.4 0 - 1 % 10/23/2021 10:51 AM CDT [facility] Neutrophil Absolute 5.14 2.01 - 7.14 x10E9/L 10/23/2021 10:51 AM CDT [facility] Lymphocytes Absolute 1.87 1.07 - 3.94 x10E9/L 10/23/2021 10:51 AM CDT [facility] Monocytes Absolute 0.92 0.26 - 1.07 x10E9/L 10/23/2021 10:51 AM CDT [facility] Eosinophils Absolute 0.25 0 - 0.47 x10E9/L 10/23/2021 10:51 AM CDT [facility] Basophils Absolute 0.04 0 - 0.08 x10E9/L 10/23/2021 10:51 AM CDT [facility] Immature Granulocytes Absolute 0.03 0.00 - 0.06 x10E9/L 10/23/2021 10:51 AM CDT [facility] nRBC Auto 0 /100 WBC 10/23/2021 10:51 AM CDT [facility] Blood BLOOD SPECIMEN / Unknown Venipuncture / Unknown 10/23/2021 3:05 AM CDT 10/23/2021 9:43 AM CDT Vinicio Quinatnilla MD LAB - HEMATOLOGY ORD ERABLES [facility] [address] [place] [address] * (ABNORMAL) COMPREHENSIVE METABOLIC PANEL (10/23/2021 3:05 AM CDT) [facility] Glucose 105 70 - 105 mg/dL 10/23/2021 11:15 AM CDT [facility] Sodium 145 136 - 145 mmol/L 10/23/2021 11:15 AM [facility] Potassium 4.6 3.5 - 5.1 mmol/L 10/23/2021 11:15 AM [facility] Chloride 106 98 - 107 mmol/L 10/23/2021 11:15 AM [facility] CO2 26 23 - 31 mmol/L 10/23/2021 11:15 AM [facility] Calcium 10.8(H) 8.4 - 10.4 mg/dL 10/23/2021 11:15 AM [facility] Anion Gap 13 8 - 18 mmol/L 10/23/2021 11:15 AM [facility] BUN 36(H) 8.9 - 20.6 mg/dL 10/23/2021 11:15 AM [facility] Creatinine 1.17 0.72 - 1.25 mg/dL 10/23/2021 11:15 AM [facility] Alkaline Phosphatase 151(H) 40 - 150 U/L 10/23/2021 11:15 AM [facility] ALT 23 0 - 61 U/L 10/23/2021 11:15 AM [facility] AST 13 5 - 34 U/L 10/23/2021 11:15 AM [facility] Protein Total 7.8 6.4 - 8.3 gm/dL 10/23/2021 11:15 AM [facility] Albumin 3.9 3.5 - 5.2 gm/dL 10/23/2021 11:15 AM [facility] Bilirubin Total 0.2 0.2 - 1.2 mg/dL 10/23/2021 11:15 AM [facility] eGFR by CKD-EPI 83(L) >=90 mL/min/1.7 3 m2 10/23/2021 11:15 AM [facility] Blood BLOOD SPECIMEN / Unknown Venipuncture / Unknown 10/23/2021 3:05 AM CDT 10/23/2021 9:43 AM T Vinicio Quintanilla MD LAB - CHEMISTRY JOSE ENRIQUE [facility] Organization Address City/State/ZIP Co de Phone Number [facility] [address] [place] [address] documented in this encounter Visit Diagnoses Not on filedocumented in this encounter Care Teams Mannequin Mold Maker Relationship Specialty Start Date End Date Pepe Martel MD [address] [place] [id number] PCP - General 08/14/16 documented as of this encounter
--- OUTSIDE RECORDS SUMMARY | 2024-08-23 06:09 | XMS_ITS | Encounter Summary ---
Author Organization [facility] Address [address] [place] [address] Care Team Providers Care Train Director Name Role Phone Pepe Martel MD Primary Care Provider [phone] Encounter Details Date Type Department Care Team (Late st Contact Info) Description 10/27/2021 Lab Requisition [facility] [address] [place] [address] [place] [address] [place] [address] Social History Tobacco Use Types Packs/Day Years [...] - 43.0 % 10/27/2021 11:07 AM CDT [facility] Monocytes % 8.4 5.0 - 13.0 % 10/27/2021 11:07 AM CDT [facility] Eosinophils % 3.7 0.0 - 6.0 % 10/27/2021 11:07 AM CDT [facility] Basophils % 0.4 0.0 - 2.0 % 10/27/2021 11:07 AM CDT [facility] Immature Granulocytes 0.3 0 - 1 % 10/27/2021 11:07 AM CDT [facility] Neutrophil Absolute 4.15 2.01 - 7.14 x10E9/L 10/27/2021 11:07 AM CDT [facility] Lymphocytes Absolute 1.94 1.07 - 3.94 x10E9/L 10/27/2021 11:07 AM CDT [facility] Monocytes Absolute 0.59 0.26 - 1.07 x10E9/L 10/27/2021 11:07 AM T [facility] Eosinophils Absolute 0.26 0 - 0.47 x10E9/L 10/27/2021 11:07 AM CDT [facility] Basophils Absolute 0.03 0 - 0.08 x10E9/L 10/27/2021 11:07 AM T [facility] Immature Granulocytes Absolute 0.02 0.00 - 0.06 x10E9/L 10/27/2021 11:07 AM CDT [facility] nRBC Auto 0 /100 WBC 10/27/2021 11:07 AM [facility] Blood BLOOD SPECIMEN / Unknown Venipuncture / Unknown 10/27/2021 3:02 AM CDT 10/27/2021 10:57 AM CDT Vinicio Quintanilla MD LAB - HEMATOLOGY ORD ERABLES [facility] [address] [place] [address] * (ABNORMAL) COMPREHENSIVE METABOLIC PANEL (10/27/2021 3:02 AM CDT) [facility] Signature Glucose 111(H) 70 - 105 mg/dL 10/27/2021 11:31 AM CDT [facility] Sodium 140 136 - 145 mmol/L 10/27/2021 11:31 AM CDT [facility] Potassium 4.8 3.5 - 5.1 mmol/L 10/27/2021 11:31 AM CDT [facility] Chloride 103 98 - 107 mmol/L 10/27/2021 11:31 AM CDT [facility] CO2 23 23 - 31 mmol/L 10/27/2021 11:31 AM CDT [facility] Calcium 10.0 8.4 - 10.4 mg/dL 10/27/2021 11:31 AM [facility] Anion Gap 14 8 - 18 mmol/L 10/27/2021 11:31 AM T [facility] BUN 33(H) 8.9 - 20.6 mg/dL 10/27/2021 11:31 AM [facility] Creatinine 1.01 0.72 - 1.25 mg/dL 10/27/2021 11:31 AM [facility] Alkaline Phosphatase 132 40 - 150 U/L 10/27/2021 11:31 AM CDT [facility] ALT 18 0 - 61 U/L 10/27/2021 11:31 AM CDT [facility] AST 12 5 - 34 U/L 10/27/2021 11:31 AM [facility] Protein Total 7.3 6.4 - 8.3 gm/dL 10/27/2021 11:31 AM [facility] Albumin 3.6 3.5 - 5.2 gm/dL 10/27/2021 11:31 AM [facility] Bilirubin Total 0.2 0.2 - 1.2 mg/dL 10/27/2021 11:31 AM [facility] eGFR by CKD-EPI >90 >=90 mL/min/1.7 3 m2 10/27/2021 11:31 AM [facility] Blood BLOOD SPECIMEN / Unknown Venipuncture / Unknown 10/27/2021 3:02 AM CDT 10/27/2021 10:57 AM T Vinicio Quintanilla MD LAB - CHEMISTRY JOSE ENRIQUE [facility] Organization Address City/State/ZIP Co de Phone Number [facility] [address] [place] [address] documented in this encounter Visit Diagnoses Not on filedocumented in this encounter Care Teams Train Director Relationship Specialty Start Date End Date Pepe Martel MD [address] [place] [id number] PCP - General 08/14/16 documented as of this encounter
--- OUTSIDE RECORDS SUMMARY | 2024-08-23 06:09 | XMS_ITS | Encounter Summary ---
Author Organization [facility] Address [address] [place] [address] Care Team Providers Care Pump Erector Helper Name Role Phone Pepe Martel MD Primary Care Provider [phone] Encounter Details Date Type Department Care Team (Late st Contact Info) Description 12/01/2021 Lab Requisition [facility] [address] [place] [address] Alverto Virgen MD [address] [place] [address] [place] [address] Social History Tobacco Use Types Packs/Day Years [...] Platelets 1+(A) None 12/01/2021 11:24 AM CDT [facility] Blood BLOOD SPECIMEN / Unknown Venipuncture / Unknown 12/01/2021 4:00 AM CDT 12/01/2021 9:28 AM CDT Alverto Virgen MD LAB - HEMATOLOGY ORDERABLES Performing Organization Address City/State/[facility] Co de Phone Number [facility] [address] [place] [address] * (ABNORMAL) CBC WITH DIFFERENTIAL (12/01/2021 4:00 AM CDT) WBC 7.7 4.4 - 10.7 x10E9/L 12/01/2021 10:46 AM CDT [facility] WBC Corrected 12/01/2021 10:46 AM CDT [facility] RBC 3.99 3.80 - 5.40 x10E12/L 12/01/2021 10:46 AM CDT [facility] Hemoglobin 10.7(L) 12.0 - 17.6 gm/dL 12/01/2021 10:46 AM CDT [facility] Hematocrit 34.8(L) 35.2 - 51.7 % 12/01/2021 10:46 AM CDT [facility] MCV 87.2 80.7 - 98.3 fl 12/01/2021 10:46 AM CDT [facility] MCH 26.8 26.7 - 34.0 pg 12/01/2021 10:46 AM CDT [facility] MCHC 30.7(L) 30.8 - 35.9 gm/dL 12/01/2021 10:46 AM CDT [facility] Platelet Count 385 153 - 416 x10E9/L 12/01/2021 10:46 AM CDT [facility] RDW-CV 13.3 12.1 - 14.9 % 12/01/2021 10:46 AM CDT [facility] MPV 10.5 9.4 - 12.9 fl 12/01/2021 10:46 AM CDT [facility] Neutrophils % 58.3 44.0 - 73.0 % 12/01/2021 10:46 AM CDT [facility] Lymphocytes % 29.2 20.0 - 43.0 % 12/01/2021 10:46 AM CDT [facility] Monocytes % 9.9 5.0 - 13.0 % 12/01/2021 10:46 AM CDT [facility] Eosinophils % 1.9 0.0 - 6.0 % 12/01/2021 10:46 AM CDT [facility] Basophils % 0.4 0.0 - 2.0 % 12/01/2021 10:46 AM CDT [facility] Immature Granulocytes 0.3 0 - 1 % 12/01/2021 10:46 AM CDT [facility] Neutrophil Absolute 4.50 2.01 - 7.14 x10E9/L 12/01/2021 10:46 AM CDT [facility] Lymphocytes Absolute 2.25 1.07 - 3.94 x10E9/L 12/01/2021 10:46 AM CDT [facility] Monocytes Absolute 0.76 0.26 - 1.07 x10E9/L 12/01/2021 10:46 AM CDT [facility] Eosinophils Absolute 0.15 0 - 0.47 x10E9/L 12/01/2021 10:46 AM CDT [facility] Basophils Absolute 0.03 0 - 0.08 x10E9/L 12/01/2021 10:46 AM CDT [facility] Immature Granulocytes Absolute 0.02 0.00 - 0.06 x10E9/L 12/01/2021 10:46 AM CDT [facility] nRBC Auto 0 /100 WBC 12/01/2021 10:46 AM CDT [facility] Blood BLOOD SPECIMEN / Unknown Venipuncture / Unknown 12/01/2021 4:00 AM CDT 12/01/2021 9:28 AM CDT Alverto Virgen MD LAB - HEMATOLOGY ORDERABLES Performing Organization Address City/[facility] Co de Phone Number [facility] [address] [place] [address] * (ABNORMAL) COMPREHENSIVE METABOLIC PANEL (12/01/2021 4:00 AM CDT) Glucose 96 70 - 105 mg/dL 12/01/2021 10:54 AM [facility] Sodium 142 136 - 145 mmol/L 12/01/2021 10:54 AM [facility] Potassium 4.9 3.5 - 5.1 mmol/L 12/01/2021 10:54 AM [facility] Chloride 103 98 - 107 mmol/L 12/01/2021 10:54 AM [facility] CO2 24 23 - 31 mmol/L 12/01/2021 10:54 AM [facility] Calcium 10.6(H) 8.4 - 10.4 mg/dL 12/01/2021 10:54 AM [facility] Anion Gap 15 8 - 18 mmol/L 12/01/2021 10:54 AM [facility] BUN 31(H) 8.9 - 20.6 mg/dL 12/01/2021 10:54 AM [facility] Creatinine 1.06 0.72 - 1.25 mg/dL 12/01/2021 10:54 AM [facility] Alkaline Phosphatase 132 40 - 150 U/L 12/01/2021 10:54 [facility] 21 0 - 61 U/L 12/01/2021 10:54 AM CDT [facility] AST 12 5 - 34 U/L 12/01/2021 10:54 AM [facility] Protein Total 7.6 6.4 - 8.3 gm/dL 12/01/2021 10:54 AM CDT [facility] Albumin 3.7 3.5 - 5.2 gm/dL 12/01/2021 10:54 AM CDT [facility] Bilirubin Total 0.3 0.2 - 1.2 mg/dL 12/01/2021 10:54 AM CDT [facility] eGFR by CKD-EPI >90 >=90 mL/min/1.7 3 m2 12/01/2021 10:54 AM CDT [facility] Blood BLOOD SPECIMEN / Unknown Venipuncture / Unknown 12/01/2021 4:00 AM CDT 12/01/2021 9:28 AM CDT Alverto Virgen MD LAB - CHEMISTRY O RDERABLES Performing Organization Address City/State/[facility] Co de Phone Number [facility] [address] [place] [address] documented in this encounter Visit Diagnoses Not on filedocumented in this encounter Care Teams Pump Erector Helper Relationship Specialty Start Date End Date Pepe Martel MD [address] [place] [id number] PCP - General 08/14/16 documented as of this encounter
--- OUTSIDE RECORDS SUMMARY | 2024-08-23 06:09 | XMS_ITS | Encounter Summary ---
Author Organization [facility] Address [address] [facility] [place] [address] Care Team Providers Care Radiologist Physician Name Role Phone Pepe Martel MD Primary Care Provider Encounter Details Date Type Department Care Team (Late st Contact Info) Description 10/06/2021 Lab Requisition [facility] [address] [place] [address] [place] [address] [place] [address] Social History Tobacco Use Types Packs/Day Years [...] - 43.0 % 10/06/2021 9:27 AM CDT [facility] Monocytes % 6.4 5.0 - 13.0 % 10/06/2021 9:27 AM CDT [facility] Eosinophils % 4.3 0.0 - 6.0 % 10/06/2021 9:27 AM CDT [facility] Basophils % 0.4 0.0 - 2.0 % 10/06/2021 9:27 AM T [facility] Immature Granulocytes 0.1 0 - 1 % 10/06/2021 9:27 AM CDT [facility] Neutrophil Absolute 4.30 2.01 - 7.14 x10E9/L 10/06/2021 9:27 AM CDT [facility] Lymphocytes Absolute 1.70 1.07 - 3.94 x10E9/L 10/06/2021 9:27 AM CDT [facility] Monocytes Absolute 0.43 0.26 - 1.07 x10E9/L 10/06/2021 9:27 AM T [facility] Eosinophils Absolute 0.29 0 - 0.47 x10E9/L 10/06/2021 9:27 AM CDT [facility] Basophils Absolute 0.03 0 - 0.08 x10E9/L 10/06/2021 9:27 AM T [facility] Immature Granulocytes Absolute 0.01 0.00 - 0.06 x10E9/L 10/06/2021 9:27 AM CDT [facility] nRBC Auto 0 /100 WBC 10/06/2021 9:27 AM [facility] Blood BLOOD SPECIMEN / Unknown Venipuncture / Unknown 10/06/2021 4:30 AM CDT 10/06/2021 9:21 AM CDT Vinicio Quintanilla MD LAB - HEMATOLOGY ORD ERABLES [facility] [address] [place] [address] * (ABNORMAL) COMPREHENSIVE METABOLIC PANEL (10/06/2021 4:30 AM CDT) [facility] Glucose 117(H) 70 - 105 mg/dL 10/06/2021 9:49 AM CDT [facility] Sodium 145 136 - 145 mmol/L 10/06/2021 9:49 AM CDT [facility] Potassium 4.6 3.5 - 5.1 mmol/L 10/06/2021 9:49 AM CDT [facility] Chloride 107 98 - 107 mmol/L 10/06/2021 9:49 AM CDT [facility] CO2 26 23 - 31 mmol/L 10/06/2021 9:49 AM CDT [facility] Calcium 10.6(H) 8.4 - 10.4 mg/dL 10/06/2021 9:49 AM CDT [facility] Anion Gap 12 8 - 18 mmol/L 10/06/2021 9:49 AM CDT [facility] BUN 32(H) 8.9 - 20.6 mg/dL 10/06/2021 9:49 AM CDT [facility] Creatinine 1.05 0.72 - 1.25 mg/dL 10/06/2021 9:49 AM T [facility] Alkaline Phosphatase 156(H) 40 - 150 U/L 10/06/2021 9:49 AM CDT [facility] ALT 23 0 - 61 U/L 10/06/2021 9:49 AM CDT [facility] AST 12 5 - 34 U/L 10/06/2021 9:49 AM T [facility] Protein Total 7.7 6.4 - 8.3 gm/dL 10/06/2021 9:49 AM [facility] Albumin 3.8 3.5 - 5.2 gm/dL 10/06/2021 9:49 AM T [facility] Bilirubin Total 0.2 0.2 - 1.2 mg/dL 10/06/2021 9:49 AM [facility] eGFR by CKD-EPI >90 >=90 mL/min/1.7 3 m2 10/06/2021 9:49 AM [facility] Blood BLOOD SPECIMEN / Unknown Venipuncture / Unknown 10/06/2021 4:30 AM CDT 10/06/2021 9:21 AM CDT Vinicio Quintanilla MD LAB - CHEMISTRY JOSE ENRIQUE VELA [facility] Organization Address City/State/ZIP Co de Phone Number [facility] [address] [place] [address] documented in this encounter Visit Diagnoses Not on filedocumented in this encounter Care Teams Radiologist Physician Relationship Specialty Start Date End Date Pepe Martel MD [address] [place] [id number] PCP - General 08/14/16 documented as of this encounter
--- OUTSIDE RECORDS SUMMARY | 2024-08-23 06:09 | XMS_ITS | Encounter Summary ---
Author Organization [facility] Address [address] [facility] [address] [place] [address] Care Team Providers Care Economics Department Chair Name Role Phone Pepe Martel MD Primary Care Provider [phone] Encounter Details Date Type Department Care Team (Late st Contact Info) Description 11/27/2021 Lab Requisition [facility] [address] [place] [address] Alverto Virgen MD [address] [place] [address] [place] [address] Social History Tobacco Use Types Packs/Day Years [...] - 5.2 gm/dL 11/27/2021 12:39 PM CDT [facility] Bilirubin Total 0.2 0.2 - 1.2 mg/dL 11/27/2021 12:39 PM CDT [facility] eGFR by CKD-EPI >90 >=90 mL/min/1.7 3 m2 11/27/2021 12:39 PM CDT [facility] Blood BLOOD SPECIMEN / Unknown Venipuncture / Unknown 11/27/2021 3:20 AM CDT 11/27/2021 11:38 AM CDT Alverto Virgen MD LAB - CHEMISTRY O RDERABLES [facility] [address] [place] [address] * (ABNORMAL) CBC WITH DIFFERENTIAL (11/27/2021 3:20 AM CDT) WBC 7.8 4.4 - 10.7 x10E9/L 11/27/2021 12:20 PM CDT [facility] WBC Corrected 11/27/2021 12:20 PM CDT [facility] RBC 4.28 3.80 - 5.40 x10E12/L 11/27/2021 12:20 PM CDT [facility] Hemoglobin 11.3(L) 12.0 - 17.6 gm/dL 11/27/2021 12:20 PM CDT [facility] Hematocrit 36.7 35.2 - 51.7 % 11/27/2021 12:20 PM CDT [facility] MCV 85.7 80.7 - 98.3 fl 11/27/2021 12:20 PM CDT [facility] MCH 26.4(L) 26.7 - 34.0 pg 11/27/2021 12:20 PM CDT [facility] MCHC 30.8 30.8 - 35.9 gm/dL 11/27/2021 12:20 PM CDT [facility] Platelet Count 490(H) 153 - 416 x10E9/L 11/27/2021 12:20 PM CDT [facility] RDW-CV 13.2 12.1 - 14.9 % 11/27/2021 12:20 PM CDT [facility] MPV 10.1 9.4 - 12.9 fl 11/27/2021 12:20 PM CDT [facility] Neutrophils % 60.5 44.0 - 73.0 % 11/27/2021 12:20 PM CDT [facility] Lymphocytes % 25.9 20.0 - 43.0 % 11/27/2021 12:20 PM CDT [facility] Monocytes % 10.9 5.0 - 13.0 % 11/27/2021 12:20 PM CDT [facility] Eosinophils % 2.3 0.0 - 6.0 % 11/27/2021 12:20 PM CDT [facility] Basophils % 0.3 0.0 - 2.0 % 11/27/2021 12:20 PM CDT [facility] Immature Granulocytes 0.1 0 - 1 % 11/27/2021 12:20 PM CDT [facility] Neutrophil Absolute 4.73 2.01 - 7.14 x10E9/L 11/27/2021 12:20 PM CDT [facility] Lymphocytes Absolute 2.02 1.07 - 3.94 x10E9/L 11/27/2021 12:20 PM CDT [facility] Monocytes Absolute 0.85 0.26 - 1.07 x10E9/L 11/27/2021 12:20 PM CDT [facility] Eosinophils Absolute 0.18 0 - 0.47 x10E9/L 11/27/2021 12:20 PM CDT [facility] Basophils Absolute 0.02 0 - 0.08 x10E9/L 11/27/2021 12:20 PM CDT [facility] Immature Granulocytes Absolute 0.01 0.00 - 0.06 x10E9/L 11/27/2021 12:20 PM CDT [facility] nRBC Auto 0 /100 WBC 11/27/2021 12:20 PM CDT [facility] Blood BLOOD SPECIMEN / Unknown Venipuncture / Unknown 11/27/2021 3:20 AM CDT 11/27/2021 11:38 AM CDT Alverto Virgen MD LAB - HEMATOLOGY ORDERABLES [facility] [address] [place] [address] documented in this encounter Visit Diagnoses Not on filedocumented in this encounter Care Teams Economics Department Chair Relationship Specialty Start Date End Date Pepe Martel MD [address] [place] [id number] PCP - General 08/14/16 documented as of this encounter
--- OUTSIDE RECORDS SUMMARY | 2024-08-23 06:09 | XMS_ITS | Encounter Summary ---
Author Organization [facility] Address [address] [facility] [place] [address] Care Team Providers Care Obiee Report Developer Name Role Phone Pepe Martel MD Primary Care Provider [phone] Encounter Details Date Type Department Care Team (Late st Contact Info) Description 11/24/2021 Lab Requisition [facility] [address] [place] [address] Alverto Virgen MD [address] [place] [address] of [place] [address] Social History Tobacco Use Types Packs/Day Years [...] % 11/24/2021 11:46 AM CDT [facility] Monocytes % 9.5 5.0 - 13.0 % 11/24/2021 11:46 AM CDT [facility] Eosinophils % 2.8 0.0 - 6.0 % 11/24/2021 11:46 AM CDT [facility] Basophils % 0.3 0.0 - 2.0 % 11/24/2021 11:46 AM CDT [facility] Immature Granulocytes 0.2 0 - 1 % 11/24/2021 11:46 AM CDT [facility] Neutrophil Absolute 3.68 2.01 - 7.14 x10E9/L 11/24/2021 11:46 AM CDT [facility] Lymphocytes Absolute 1.99 1.07 - 3.94 x10E9/L 11/24/2021 11:46 AM CDT [facility] Monocytes Absolute 0.62 0.26 - 1.07 x10E9/L 11/24/2021 11:46 AM CDT [facility] Eosinophils Absolute 0.18 0 - 0.47 x10E9/L 11/24/2021 11:46 AM CDT [facility] Basophils Absolute 0.02 0 - 0.08 x10E9/L 11/24/2021 11:46 AM CDT [facility] Immature Granulocytes Absolute 0.01 0.00 - 0.06 x10E9/L 11/24/2021 11:46 AM CDT [facility] nRBC Auto 0 /100 WBC 11/24/2021 11:46 AM CDT [facility] Blood BLOOD SPECIMEN / Unknown Venipuncture / Unknown 11/24/2021 4:50 AM CDT 11/24/2021 10:57 AM CDT Alverto Virgen MD LAB - HEMATOLOGY ORDERABLES [facility] [address] [place] [address] * (ABNORMAL) COMPREHENSIVE METABOLIC PANEL (11/24/2021 4:50 AM CDT) [facility] Glucose 111(H) 70 - 105 mg/dL 11/24/2021 12:11 PM [address] [facility] Sodium 139 136 - 145 mmol/L 11/24/2021 12:11 PM [address] [facility] Potassium 4.8 3.5 - 5.1 mmol/L 11/24/2021 12:11 PM [address] [facility] Chloride 101 98 - 107 mmol/L 11/24/2021 12:11 PM [address] [facility] CO2 25 23 - 31 mmol/L 11/24/2021 12:11 PM [address] [facility] Calcium 9.9 8.4 - 10.4 mg/dL 11/24/2021 12:11 PM [facility] Anion Gap 13 8 - 18 mmol/L 11/24/2021 12:11 PM [facility] BUN 31(H) 8.9 - 20.6 mg/dL 11/24/2021 12:11 PM [facility] Creatinine 0.94 0.72 - 1.25 mg/dL 11/24/2021 12:11 PM [facility] Alkaline Phosphatase 123 40 - 150 U/L 11/24/2021 12:11 PM [address] [facility] ALT 21 0 - 61 U/L 11/24/2021 12:11 PM [facility] AST 15 5 - 34 U/L 11/24/2021 12:11 PM [facility] Protein Total 7.5 6.4 - 8.3 gm/dL 11/24/2021 12:11 PM [facility] Albumin 3.6 3.5 - 5.2 gm/dL 11/24/2021 12:11 PM [facility] Bilirubin Total 0.3 0.2 - 1.2 mg/dL 11/24/2021 12:11 PM [facility] eGFR by CKD-EPI >90 >=90 mL/min/1.7 3 m2 11/24/2021 12:11 PM [facility] Blood BLOOD SPECIMEN / Unknown Venipuncture / Unknown 11/24/2021 4:50 AM CDT 11/24/2021 10:57 AM CDT Alverto Virgen MD LAB - CHEMISTRY O RDERABLES [facility] [address] [place] [address] documented in this encounter Visit Diagnoses Not on filedocumented in this encounter Care Teams Obiee Report Developer Relationship Specialty Start Date End Date Pepe Martel MD [address] [place] [id number] PCP - General 08/14/16 documented as of this encounter
--- OUTSIDE RECORDS SUMMARY | 2024-08-23 06:09 | XMS_ITS | Encounter Summary ---
Author Organization [facility] Address [address] [facility] [address] [place] [address] Care Team Providers Care Postal Mail Carrier Name Role Phone Pepe Martel MD Primary Care Provider [phone] Encounter Details Date Type Department Care Team (Late st Contact Info) Description 08/21/2021 Lab Requisition [facility] [address] [place] [address] [place] [address] [place] [address] Social History Tobacco Use Types Packs/Day Years [...] - 43.0 % 08/21/2021 9:10 AM CDT [facility] Monocytes % 11.0 5.0 - 13.0 % 08/21/2021 9:10 AM CDT [facility] Eosinophils % 3.1 0.0 - 6.0 % 08/21/2021 9:10 AM CDT [facility] Basophils % 0.4 0.0 - 2.0 % 08/21/2021 9:10 AM CDT [facility] Immature Granulocytes 0.2 0 - 1 % 08/21/2021 9:10 AM CDT [facility] Neutrophil Absolute 5.52 2.01 - 7.14 x10E9/L 08/21/2021 9:10 AM CDT [facility] Lymphocytes Absolute 2.45 1.07 - 3.94 x10E9/L 08/21/2021 9:10 AM CDT [facility] Monocytes Absolute 1.03 0.26 - 1.07 x10E9/L 08/21/2021 9:10 AM CDT [facility] Eosinophils Absolute 0.29 0 - 0.47 x10E9/L 08/21/2021 9:10 AM CDT [facility] Basophils Absolute 0.04 0 - 0.08 x10E9/L 08/21/2021 9:10 AM CDT [facility] Immature Granulocytes Absolute 0.02 0.00 - 0.06 x10E9/L 08/21/2021 9:10 AM CDT [facility] nRBC Auto 0 /100 WBC 08/21/2021 9:10 AM CDT [facility] Blood BLOOD SPECIMEN / Unknown Venipuncture / Unknown 08/21/2021 4:04 AM CDT 08/21/2021 8:57 AM CDT Vinicio Quintanilla MD LAB - HEMATOLOGY ORD ERABLES [facility] [address] [place] [address] * (ABNORMAL) COMPREHENSIVE METABOLIC PANEL (08/21/2021 4:04 AM CDT) [facility] Glucose 101 70 - 105 mg/dL 08/21/2021 9:36 AM CDT [facility] Sodium 138 136 - 145 mmol/L 08/21/2021 9:36 AM CDT [facility] Potassium 4.7 3.5 - 5.1 mmol/L 08/21/2021 9:36 AM CDT [facility] Chloride 98 98 - 107 mmol/L 08/21/2021 9:36 AM CDT [facility] CO2 25 23 - 31 mmol/L 08/21/2021 9:36 AM CDT [facility] Calcium 10.4 8.4 - 10.4 mg/dL 08/21/2021 9:36 AM CDT [facility] Anion Gap 15 8 - 18 mmol/L 08/21/2021 9:36 AM CDT [facility] BUN 26(H) 8.9 - 20.6 mg/dL 08/21/2021 9:36 AM CDT [facility] Creatinine 0.88 0.72 - 1.25 mg/dL 08/21/2021 9:36 AM CDT [facility] Alkaline Phosphatase 160(H) 40 - 150 U/L 08/21/2021 9:36 AM CDT [facility] ALT 28 0 - 61 U/L 08/21/2021 9:36 AM CDT [facility] AST 19 5 - 34 U/L 08/21/2021 9:36 AM CDT [facility] Protein Total 8.5(H) 6.4 - 8.3 gm/dL 08/21/2021 9:36 AM CDT [facility] Albumin 4.0 3.5 - 5.2 gm/dL 08/21/2021 9:36 AM T [facility] Bilirubin Total 0.2 0.2 - 1.2 mg/dL 08/21/2021 9:36 AM T [facility] eGFR by CKD-EPI >90 >=90 mL/min/1.7 3 m2 08/21/2021 9:36 AM T [facility] Blood BLOOD SPECIMEN / Unknown Venipuncture / Unknown 08/21/2021 4:04 AM CDT 08/21/2021 8:57 AM CDT [facility] - 08/21/2021 9:36 AM CDT eGFR result was calculated using the updated CKD-EPI Creatinine Equations (2020). Prior to go live 2021 the eGFR was calculated using the MDRD calculation. Please note Reference Range change. Vinicio Quintanilla MD LAB - CHEMISTRY JOSE ENRIQUE VELA [facility] Organization Address City/State/ZIP Co de Phone Number [facility] [address] [place], [place] [id number] documented in this encounter Visit Diagnoses Not on filedocumented in this encounter Care Teams Postal Mail Carrier Relationship Specialty Start Date End Date Pepe Martel MD [address] [place] [id number] PCP - General 08/14/16 documented as of this encounter
--- OUTSIDE RECORDS SUMMARY | 2024-08-23 06:09 | XMS_ITS | Encounter Summary ---
Author Organization [facility] Address [address] [facility] [place] [address] Care Team Providers Care Driver Education Road Instructor Name Role Phone Pepe Martel MD Primary Care Provider Encounter Details Date Type Department Care Team (Late st Contact Info) Description 09/18/2021 Lab Requisition [facility] [address] [place] [address] [place] [address] [place] [address] Social History Tobacco Use Types Packs/Day Years [...] - 416 x10E9/L 09/18/2021 9:02 AM CDT [facility] RDW-CV 14.0 12.1 - 14.9 % 09/18/2021 9:02 AM CDT [facility] MPV 10.3 9.4 - 12.9 fl 09/18/2021 9:02 AM CDT [facility] Neutrophils % 62.2 44.0 - 73.0 % 09/18/2021 9:02 AM CDT [facility] Lymphocytes % 23.4 20.0 - 43.0 % 09/18/2021 9:02 AM CDT [facility] Monocytes % 12.8 5.0 - 13.0 % 09/18/2021 9:02 AM T [facility] Eosinophils % 1.1 0.0 - 6.0 % 09/18/2021 9:02 AM CDT [facility] Basophils % 0.4 0.0 - 2.0 % 09/18/2021 9:02 AM [facility] Immature Granulocytes 0.1 0 - 1 % 09/18/2021 9:02 AM [facility] Neutrophil Absolute 5.78 2.01 - 7.14 x10E9/L 09/18/2021 9:02 AM [facility] Lymphocytes Absolute 2.17 1.07 - 3.94 x10E9/L 09/18/2021 9:02 AM T [facility] Monocytes Absolute 1.19(H) 0.26 - 1.07 x10E9/L 09/18/2021 9:02 AM [facility] Eosinophils Absolute 0.10 0 - 0.47 x10E9/L 09/18/2021 9:02 AM [facility] Basophils Absolute 0.04 0 - 0.08 x10E9/L 09/18/2021 9:02 AM [facility] Immature Granulocytes Absolute 0.01 0.00 - 0.06 x10E9/L 09/18/2021 9:02 AM [facility] nRBC Auto 0 /100 WBC 09/18/2021 9:02 AM [facility] Blood BLOOD SPECIMEN / Unknown Venipuncture / Unknown 09/18/2021 5:31 AM CDT 09/18/2021 8:55 AM CDT Vinicio Quintanilla MD LAB - HEMATOLOGY ORD ERABLES [facility] [address] [place] [address] * (ABNORMAL) COMPREHENSIVE METABOLIC PANEL (09/18/2021 5:31 AM CDT) [facility] Glucose 109(H) 70 - 105 mg/dL 09/18/2021 9:16 AM [facility] Sodium 146(H) 136 - 145 mmol/L 09/18/2021 9:16 AM [facility] Potassium 4.6 3.5 - 5.1 mmol/L 09/18/2021 9:16 AM [facility] Chloride 104 98 - 107 mmol/L 09/18/2021 9:16 AM [facility] CO2 29 23 - 31 mmol/L 09/18/2021 9:16 AM [facility] Calcium 10.9(H) 8.4 - 10.4 mg/dL 09/18/2021 9:16 AM [facility] Anion Gap 13 8 - 18 mmol/L 09/18/2021 9:16 AM [facility] BUN 33(H) 8.9 - 20.6 mg/dL 09/18/2021 9:16 AM [facility] Creatinine 1.23 0.72 - 1.25 mg/dL 09/18/2021 9:16 AM [facility] Alkaline Phosphatase 184(H) 40 - 150 U/L 09/18/2021 9:16 AM [facility] ALT 36 0 - 61 U/L 09/18/2021 9:16 AM T [facility] AST 17 5 - 34 U/L 09/18/2021 9:16 AM [facility] Protein Total 8.6(H) 6.4 - 8.3 gm/dL 09/18/2021 9:16 AM [facility] Albumin 4.1 3.5 - 5.2 gm/dL 09/18/2021 9:16 AM [facility] Bilirubin Total 0.3 0.2 - 1.2 mg/dL 09/18/2021 9:16 AM [facility] eGFR by CKD-EPI 79(L) >=90 mL/min/1.7 3 m2 09/18/2021 9:16 AM [facility] Blood BLOOD SPECIMEN / Unknown Venipuncture / Unknown 09/18/2021 5:31 AM CDT 09/18/2021 8:55 AM CDT [facility] - 09/18/2021 9:16 AM T eGFR result was calculated using the updated CKD-EPI Creatinine Equations (2020). Prior to go live 2021 the eGFR was calculated using the MDRD calculation. Please note Reference Range change. Vinicio Quintanilla MD LAB - CHEMISTRY JOSE ENRIQUE VELA [facility] Organization Address City/State/ZIP Co de Phone Number [facility] [address] [place], [place] [phone] documented in this encounter Visit Diagnoses Not on filedocumented in this encounter Care Teams Driver Education Road Instructor Relationship Specialty Start Date End Date Pepe Martel MD [address] [place] [id number] PCP - General 08/14/16 documented as of this encounter
--- OUTSIDE RECORDS SUMMARY | 2024-08-23 06:09 | XMS_ITS | Encounter Summary ---
Author Organization [facility] Address [address] [place] [address] Care Team Providers Care Senior Sales Representative Name Role Phone Pepe Martel MD Primary Care Provider [phone] Encounter Details Date Type Department Care Team (Late st Contact Info) Description 10/16/2021 Lab Requisition [facility] [address] [place] [address] [place] [address] [place] [address] Social History Tobacco Use Types Packs/Day Years [...] - 43.0 % 10/16/2021 10:45 AM CDT [facility] Monocytes % 9.2 5.0 - 13.0 % 10/16/2021 10:45 AM CDT [facility] Eosinophils % 3.8 0.0 - 6.0 % 10/16/2021 10:45 AM CDT [facility] Basophils % 0.3 0.0 - 2.0 % 10/16/2021 10:45 AM CDT [facility] Immature Granulocytes 0.1 0 - 1 % 10/16/2021 10:45 AM CDT [facility] Neutrophil Absolute 4.02 2.01 - 7.14 x10E9/L 10/16/2021 10:45 AM CDT [facility] Lymphocytes Absolute 1.98 1.07 - 3.94 x10E9/L 10/16/2021 10:45 AM CDT [facility] Monocytes Absolute 0.64 0.26 - 1.07 x10E9/L 10/16/2021 10:45 AM CDT [facility] Eosinophils Absolute 0.26 0 - 0.47 x10E9/L 10/16/2021 10:45 AM CDT [facility] Basophils Absolute 0.02 0 - 0.08 x10E9/L 10/16/2021 10:45 AM CDT [facility] Immature Granulocytes Absolute 0.01 0.00 - 0.06 x10E9/L 10/16/2021 10:45 AM CDT [facility] nRBC Auto 0 /100 WBC 10/16/2021 10:45 AM T [facility] Blood BLOOD SPECIMEN / Unknown Venipuncture / Unknown 10/16/2021 3:05 AM CDT 10/16/2021 10:12 AM CDT Vinicio Quintanilla MD LAB - HEMATOLOGY ORD ERABLES [facility] [address] [place] [address] * (ABNORMAL) COMPREHENSIVE METABOLIC PANEL (10/16/2021 3:05 AM CDT) [facility] Glucose 123(H) 70 - 105 mg/dL 10/16/2021 11:02 AM CDT [facility] Sodium 144 136 - 145 mmol/L 10/16/2021 11:02 AM [facility] Potassium 4.4 3.5 - 5.1 mmol/L 10/16/2021 11:02 AM [facility] Chloride 105 98 - 107 mmol/L 10/16/2021 11:02 AM [facility] CO2 27 23 - 31 mmol/L 10/16/2021 11:02 AM [facility] Calcium 10.1 8.4 - 10.4 mg/dL 10/16/2021 11:02 AM [facility] Anion Gap 12 8 - 18 mmol/L 10/16/2021 11:02 AM [facility] BUN 32(H) 8.9 - 20.6 mg/dL 10/16/2021 11:02 AM [facility] Creatinine 0.98 0.72 - 1.25 mg/dL 10/16/2021 11:02 AM [facility] Alkaline Phosphatase 134 40 - 150 U/L 10/16/2021 11:02 AM [facility] ALT 17 0 - 61 U/L 10/16/2021 11:02 AM [facility] AST 13 5 - 34 U/L 10/16/2021 11:02 AM [facility] Protein Total 7.2 6.4 - 8.3 gm/dL 10/16/2021 11:02 AM [facility] Albumin 3.5 3.5 - 5.2 gm/dL 10/16/2021 11:02 AM [facility] Bilirubin Total 0.1(L) 0.2 - 1.2 mg/dL 10/16/2021 11:02 AM [facility] eGFR by CKD-EPI >90 >=90 mL/min/1.7 3 m2 10/16/2021 11:02 AM [facility] Blood BLOOD SPECIMEN / Unknown Venipuncture / Unknown 10/16/2021 3:05 AM T 10/16/2021 10:12 AM [facility] Vinicio Quintanilla MD LAB - CHEMISTRY [facility] Organization Address City/State/ZIP Co de Phone Number [facility] [address] [place] [address] documented in this encounter Visit Diagnoses Not on filedocumented in this encounter Care Teams Senior Sales Representative Relationship Specialty Start Date End Date Pepe Martel MD [facility] [address] [address] PCP - General 08/14/16 documented as of this encounter
--- OUTSIDE RECORDS SUMMARY | 2024-08-23 06:09 | XMS_ITS | Clinical Summary ---
Author Organization Unknown Care Team Providers Care Geoscientist Name Role Phone CHERRIE VISUAL MERCHANDISING MANAGER, TRIPP Unavailable Unavailabl e NOEMY PT, HARLEY Unavailable Unavailable CHANDA OFFBEARER, CHIVO Unavailable Unavailabl e CARISSA OT, AGUSTIN Unavailable Unavailable PAU RN, RADHA Unavailable Unavailabl e BO PHANN, ELICIA Unavailable Unavailable Payers Payer Name Policy Type Policy Number Effective Date Expira tion Date MEDICARE.[facility] [id number] Problems Condition Name Condition Details Condition Category [...] 2021-05 00:00: 00 03-13 00:00 :00 No [id number] Per instruc tions Per instructio ns (route: oral) Med Classific ation: Gastroint estinal Therapy Agents senna 8.6 mg tablet 2021-05 00:00: 00 Yes [id number] CONSTIPATIO N 1 tablet DAILY 1 tablet DAILY (route: oral) Med Classific ation: Gastroint estinal Therapy Agents lansoprazol e 30 mg delayed release,dis integrating tablet 2021-05 00:00: 00 03-13 00:00 :00 No [id number] Per instruc tions Per instructio ns (route: oral) Med Classific ation: Gastroint estinal Therapy Agents ondansetron 4 mg disintegrat ing tablet 2021-05 00:00: 00 03-13 00:00 :00 No [id number] Per instruc tions Per instructio ns (route: oral) Med Classific ation: Gastroint estinal Therapy Agents Docu 50 mg/5 mL oral liquid 2021-05 00:00: 00 Yes [id number] CONSTIPATIO N 100 mg DAILY 100 mg DAILY (route: oral) Med Classific ation: Gastroint estinal Therapy Agents carvedilol 12.5 mg tablet 2021-05 00:00: 00 Yes [id number] BLOOD PRESSURE 1 tablet 2 TIMES DAILY 1 tablet 2 TIMES DAILY (route: oral) Med Classific ation: Cardiovas cular Therapy Agents famotidine 20 mg tablet 2021-05 00:00: 00 03-13 00:00 :00 No [id number] Per instruc tions Per instructio ns (route: oral) Med Classific ation: Gastroint estinal Therapy Agents glycopyrrol ate 1 mg tablet 2021-05 00:00: 00 03-13 00:00 :00 No [id number] Per instruc tions Per instructio ns (route: oral) Med Classific ation: Gastroint estinal Therapy Agents levetiracet am 1,000 mg tablet 2021-05 00:00: 00 03-13 00:00 :00 No [id number] Per instruc tions Per instructio ns (route: oral) Med Classific ation: Central Nervous System Agents nadolol 40 mg tablet 2021-05 00:00: 00 03-13 00:00 :00 No [id number] Per instruc tions Per instructio ns (route: oral) Med Classific ation: Cardiovas cular Therapy Agents scopolamine 1 mg over 3 days transdermal patch 2021-05 00:00: 00 Yes [id number] NAUSEA AND VOMITING 1 patch,t ransder mal 3 day EVERY 72 HOURS 1 patch,alanis sdermal 3 day EVERY 72 HOURS (route: transderma l) Med Classific ation: Gastroint estinal Therapy Agents chlorhexidi ne gluconate 0.12 % mouthwash 2021-05 00:00: 00 03-13 00:00 :00 No [id number] Per instruc tions Per instructio ns (route: mucous membrane) Med Classific ation: Mouth-Thr oat-Denta l - Preparati ons Aspirin Childrens 81 mg chewable tablet 2023-05 00:00: 00 Yes [id number] BLOOD THINNER 1 tablet DAILY 1 tablet DAILY (route: oral) Alternate Route: GASTROSTO MY TUBE. Med Classific ation: Hematolog ical Agents baclofen 5 mg tablet 2023-05 00:00: 00 Yes [id number] MUSCLE RELAXER 1 tablet 3 TIMES DAILY 1 tablet 3 TIMES DAILY (route: oral) Alternate Route: GASTROSTO MY TUBE. Med Classific ation: Locomotor System Multiple Vitamin-Min erals tablet 2023-05 00:00: 00 Yes [id number] SUPPLEMENT 1 tablet DAILY 1 tablet DAILY [...] PHYSICIANS . RN TO OBSERVE AND ASSESS, IT TECHNICIAN/COMMERCIAL CONSTRUCTION PROJECT MANAGER TO OBSERVE FOR RISK FOR FALLS AND INSTRUCT IN FALL PREVENTION, HOME SAFETY, MEDICATION MANAGEMENT, INFECTION PREVENTION, AND NUTRITION MANAGEMENT. RN/IT TECHNICIAN/COMMERCIAL CONSTRUCTION PROJECT MANAGER NURSE MAY PERFORM O2 SATURATION LEVEL ON ADMISSION AND PRN FOR EVERY VISIT FOR RN TO ASSESS/IT TECHNICIAN TO OBSERVE PATIENT, WITH NOTIFICATION TO THE PHYSICIAN IF SATURATION IS 90% IN THE ABSENCE OF MORE SPECIFIC PARAMETERS FROM THE PHYSICIAN. AGENCY MAY PERFORM A RESUMPTION OF CARE VISIT FOLLOWING ANY HOSPITAL ADMISSION. RN/IT TECHNICIAN/COMMERCIAL CONSTRUCTION PROJECT MANAGER TO MONITOR CO-MORBID CONDITIONS LISTED ON THE PLAN OF CARE AND ANY NEW CONDITIONS THAT PRESENT THEMSELVES DURING THIS EPISODE TO IDENTIFY CHANGES AND INTERVENE TO MINIMIZE COMPLICATIONS. [code = RN TO OBSERVE, ASSESS, EVALUATE, AND DEVELOP AN INDIVIDUALIZED PLAN OF CARE. AGENCY MAY ACCEPT ORDERS FROM CONSULTING PHYSICIANS . RN TO OBSERVE AND ASSESS, IT TECHNICIAN/COMMERCIAL CONSTRUCTION PROJECT MANAGER TO OBSERVE FOR RISK FOR FALLS AND INSTRUCT IN FALL PREVENTION, HOME SAFETY, MEDICATION MANAGEMENT, INFECTION PREVENTION, AND NUTRITION MANAGEMENT. RN/IT TECHNICIAN/COMMERCIAL CONSTRUCTION PROJECT MANAGER NURSE MAY PERFORM O2 SATURATION LEVEL ON ADMISSION AND PRN FOR EVERY VISIT FOR RN TO ASSESS/IT TECHNICIAN TO OBSERVE PATIENT, WITH NOTIFICATION TO THE PHYSICIAN IF SATURATION IS 90% IN THE ABSENCE OF MORE SPECIFIC PARAMETERS FROM THE PHYSICIAN. AGENCY MAY PERFORM A RESUMPTION OF CARE VISIT FOLLOWING ANY HOSPITAL ADMISSION. RN/IT TECHNICIAN/COMMERCIAL CONSTRUCTION PROJECT MANAGER TO MONITOR CO-MORBID CONDITIONS LISTED ON THE PLAN OF CARE AND ANY NEW CONDITIONS THAT PRESENT THEMSELVES DURING THIS EPISODE TO IDENTIFY CHANGES AND INTERVENE TO MINIMIZE COMPLICATIONS.] Future Scheduled Test MEDICATION MANAGEMENT; RN/IT TECHNICIAN/COMMERCIAL CONSTRUCTION PROJECT MANAGER TO REVIEW MEDICATIONS FOR INTERACTIONS, EFFECTIVENESS OF DRUG THERAPY, AND SIGNS/SYMPTOMS OF ADVERSE REACTIONS. MAY INSTRUCT AND REINFORCE MEDICATION TEACHING RELATED TO THE USE OF MEDICATIONS, DOSAGE, FREQUENCY, PURPOSE, SIDE EFFECTS, AND TO REPORT COMPLICATIONS. [code = MEDICATION MANAGEMENT; RN/IT TECHNICIAN/COMMERCIAL CONSTRUCTION PROJECT MANAGER TO REVIEW MEDICATIONS FOR INTERACTIONS, EFFECTIVENESS OF DRUG THERAPY, AND SIGNS/SYMPTOMS OF ADVERSE REACTIONS. MAY INSTRUCT AND REINFORCE MEDICATION TEACHING RELATED TO THE USE OF MEDICATIONS, DOSAGE, FREQUENCY, PURPOSE, SIDE EFFECTS, AND TO REPORT COMPLICATIONS.] Future Scheduled Test RESPIRATOR Y SYSTEM MANAGEMENT; RN TO ASSESS AND TEACH, IT TECHNICIAN/COMMERCIAL CONSTRUCTION PROJECT MANAGER TO OBSERVE AND TEACH RELATED TO ALTERED RESPIRATORY STATUS TO MINIMIZE COMPLICATIONS AND REDUCE HOSPITALIZATION. [code = RESPIRATORY SYSTEM MANAGEMENT; RN TO ASSESS AND TEACH, IT TECHNICIAN/COMMERCIAL CONSTRUCTION PROJECT MANAGER TO OBSERVE AND TEACH RELATED TO ALTERED RESPIRATORY STATUS TO MINIMIZE COMPLICATIONS AND REDUCE HOSPITALIZATION.] Future Scheduled Test FALL REDUC TION MANAGEMENT; RN TO ASSESS AND OBSERVE, IT TECHNICIAN/COMMERCIAL CONSTRUCTION PROJECT MANAGER TO OBSERVE FALL RISK FACTORS AND EDUCATE PATIENT/CAREGIVER ON STRATEGIES TO MINIMIZE THE RISK OF FALLING. [code = FALL REDUCTION MANAGEMENT; RN TO ASSESS AND OBSERVE, IT TECHNICIAN/COMMERCIAL CONSTRUCTION PROJECT MANAGER TO OBSERVE FALL RISK FACTORS AND EDUCATE PATIENT/CAREGIVER ON STRATEGIES TO MINIMIZE THE RISK OF FALLING.] Future Scheduled Test GENITOURIN ANNIE MANAGEMENT; RN TO ASSESS AND TEACH, IT TECHNICIAN/COMMERCIAL CONSTRUCTION PROJECT MANAGER TO OBSERVE AND TEACH RELATED TO ALTERED GENITOURINARY STATUS TO MINIMIZE COMPLICATIONS AND REDUCE HOSPITALIZATION. [code = GENITOURINARY MANAGEMENT; RN TO ASSESS AND TEACH, IT TECHNICIAN/COMMERCIAL CONSTRUCTION PROJECT MANAGER TO OBSERVE AND TEACH RELATED TO ALTERED GENITOURINARY STATUS TO MINIMIZE COMPLICATIONS AND REDUCE HOSPITALIZATION.] Future Scheduled Test URINARY IN CONTINENCE MANAGEMENT; RN TO ASSESS AND TEACH, IT TECHNICIAN/LVNTO OBSERVE AND TEACH MANAGEMENT OF URINARY INCONTINENCE. TEACH/INSTRUCT ON PREVENTING INFECTION AND SKIN BREAKDOWN. RN/IT TECHNICIAN/COMMERCIAL CONSTRUCTION PROJECT MANAGER MAY INSTRUCT IN BLADDER TRAINING PROGRAM INDICATED. [code = URINARY INCONTINENCE MANAGEMENT; RN TO ASSESS AND TEACH, IT TECHNICIAN/LVNTO OBSERVE AND TEACH MANAGEMENT OF URINARY INCONTINENCE. TEACH/INSTRUCT ON PREVENTING INFECTION AND SKIN BREAKDOWN. RN/IT TECHNICIAN/COMMERCIAL CONSTRUCTION PROJECT MANAGER MAY INSTRUCT IN BLADDER TRAINING PROGRAM INDICATED.] Future Scheduled Test URINARY TR ACT INFECTION MANAGEMENT; RN/COMMERCIAL CONSTRUCTION PROJECT MANAGER/IT TECHNICIAN TO PROVIDE SKILLED TEACHING AND SELF- CARE MANAGEMENT RELATED TO UTI TO MINIMIZE COMPLICATIONS AND REDUCE THE RISK OF HOSPITALIZATION. [code = URINARY TRACT INFECTION MANAGEMENT; RN/COMMERCIAL CONSTRUCTION PROJECT MANAGER/IT TECHNICIAN TO PROVIDE SKILLED TEACHING AND SELF- CARE MANAGEMENT RELATED TO UTI TO MINIMIZE COMPLICATIONS AND REDUCE THE RISK OF HOSPITALIZATION.] Future Scheduled Test GASTROINTE STINAL MANAGEMENT; RN TO ASSESS AND TEACH, COMMERCIAL CONSTRUCTION PROJECT MANAGER/IT TECHNICIAN TO OBSERVE AND TEACH RELATED TO ALTERED GASTROINTESTINAL STATUS TO MINIMIZE COMPLICATIONS AND REDUCE HOSPITALIZATION. [code = GASTROINTESTINAL MANAGEMENT; RN TO ASSESS AND TEACH, COMMERCIAL CONSTRUCTION PROJECT MANAGER/IT TECHNICIAN TO OBSERVE AND TEACH RELATED TO ALTERED [...] MANAG EMENT; RN TO ASSESS AND TEACH, COMMERCIAL CONSTRUCTION PROJECT MANAGER/IT TECHNICIAN TO OBSERVE AND TEACH AND PROVIDE EDUCATION ON PAIN MANAGEMENT TECHNIQUES. [code = PAIN MANAGEMENT; RN TO ASSESS AND TEACH, COMMERCIAL CONSTRUCTION PROJECT MANAGER/IT TECHNICIAN TO OBSERVE AND TEACH AND PROVIDE EDUCATION ON PAIN MANAGEMENT TECHNIQUES.] Future Scheduled Test RN/IT TECHNICIAN/COMMERCIAL CONSTRUCTION PROJECT MANAGER TO PERFORM/TEACH PATIENT/CAREGIVER WOUND CARE TO TOP OF RIGHT FOOT IRRIGATE/CLEANSE WITH WOUND CLEANSER APPLY XEROFORM MAY APPLY SKIN BARRIER TO PERIWOUND PRN TO PREVENT MACERATION AND PROTECT PERIWOUND COVER WITH FOAM DRESSING CHANGE DRESSING THREE TIMES A WEEK AND PRN FOR SOILED DRAINAGE DRESSING [code = RN/IT TECHNICIAN/COMMERCIAL CONSTRUCTION PROJECT MANAGER TO PERFORM/TEACH PATIENT/CAREGIVER WOUND CARE TO TOP OF RIGHT FOOT IRRIGATE/CLEANSE WITH WOUND CLEANSER APPLY XEROFORM MAY APPLY SKIN BARRIER TO PERIWOUND PRN TO PREVENT MACERATION AND PROTECT PERIWOUND COVER WITH FOAM DRESSING CHANGE DRESSING THREE TIMES A WEEK AND PRN FOR SOILED DRAINAGE DRESSING ] Future Scheduled Test PRN VISITS ; NUMBER OF RN/IT TECHNICIAN/COMMERCIAL CONSTRUCTION PROJECT MANAGER VISITS: 1 RN/IT TECHNICIAN/COMMERCIAL CONSTRUCTION PROJECT MANAGER TO PERFORM: WOUND MANAGEMENT FOR THE FOLLOWING REASONS: COMPLICATIONS [code = PRN VISITS; NUMBER OF RN/IT TECHNICIAN/COMMERCIAL CONSTRUCTION PROJECT MANAGER VISITS: 1 RN/IT TECHNICIAN/COMMERCIAL CONSTRUCTION PROJECT MANAGER TO PERFORM: WOUND MANAGEMENT FOR THE FOLLOWING REASONS: COMPLICATIONS ] Future Scheduled Test RISK FOR H OSPITALIZATION; RN TO ASSESS/TEACH, COMMERCIAL CONSTRUCTION PROJECT MANAGER/IT TECHNICIAN TO OBSERVE/TEACH PATIENT/CAREGIVER ON RISK FOR HOSPITALIZATION/EMERGENCY ROOM VISITS, TEACH SIGNS AND SYMPTOMS THAT PUT PATIENT AT RISK, WHEN TO NOTIFY NURSE/PHYSICIAN OF COMPLICATIONS/DECLINE, AND WHEN TO CALL 911. [code = RISK FOR HOSPITALIZATION; RN TO ASSESS/TEACH, COMMERCIAL CONSTRUCTION PROJECT MANAGER/IT TECHNICIAN TO OBSERVE/TEACH PATIENT/CAREGIVER ON RISK FOR HOSPITALIZATION/EMERGENCY ROOM VISITS, TEACH SIGNS AND SYMPTOMS THAT PUT PATIENT AT RISK, WHEN TO NOTIFY NURSE/PHYSICIAN OF COMPLICATIONS/DECLINE, AND WHEN TO CALL 911.] Future Scheduled Test CARDIOVASC ULAR SYSTEM; RN TO ASSESS/TEACH, IT TECHNICIAN/COMMERCIAL CONSTRUCTION PROJECT MANAGER TO OBSERVE/TEACH RELATED TO ALTERED CARDIOVASCULAR STATUS TO MINIMIZE COMPLICATIONS AND REDUCE HOSPITALIZATION. [code = CARDIOVASCULAR SYSTEM; RN TO ASSESS/TEACH, IT TECHNICIAN/COMMERCIAL CONSTRUCTION PROJECT MANAGER TO OBSERVE/TEACH RELATED TO ALTERED CARDIOVASCULAR STATUS TO MINIMIZE COMPLICATIONS AND REDUCE HOSPITALIZATION.] Future Scheduled Test HYPERTENSI ON MANAGEMENT; RN TO ASSESS AND TEACH, IT TECHNICIAN/COMMERCIAL CONSTRUCTION PROJECT MANAGER TO OBSERVE AND TEACH WARNING SIGNS AND SYMPTOMS TO AVOID HOSPITALIZATION. [code = HYPERTENSION MANAGEMENT; RN TO ASSESS AND TEACH, IT TECHNICIAN/COMMERCIAL CONSTRUCTION PROJECT MANAGER TO OBSERVE AND TEACH WARNING SIGNS AND SYMPTOMS TO AVOID HOSPITALIZATION.] Future Scheduled Test SKIN INTEG RITY RN TO ASSESS AND TEACH, IT TECHNICIAN/COMMERCIAL CONSTRUCTION PROJECT MANAGER TO OBSERVE AND TEACH INTEGUMENTARY STATUS TO IDENTIFY CHANGES AND INTERVENE TO MINIMIZE COMPLICATIONS. PROVIDE SKILLED TEACHING OF GENERAL WOUND AND SKIN CARE AND PREVENTION RELATED TO POTENTIAL FOR OR ACTUAL ALTERED SKIN INTEGRITY [code = SKIN INTEGRITY RN TO ASSESS AND TEACH, IT TECHNICIAN/COMMERCIAL CONSTRUCTION PROJECT MANAGER TO OBSERVE AND TEACH INTEGUMENTARY STATUS TO IDENTIFY CHANGES AND INTERVENE TO MINIMIZE COMPLICATIONS. PROVIDE SKILLED TEACHING OF GENERAL WOUND AND SKIN CARE AND PREVENTION RELATED TO POTENTIAL FOR OR ACTUAL ALTERED SKIN INTEGRITY ] Future Scheduled Test RN TO ASSE SS AND TEACH, IT TECHNICIAN/COMMERCIAL CONSTRUCTION PROJECT MANAGER TO OBSERVE AND TEACH INTEGUMENTARY STATUS RELATED [...] [code = RN TO ASSESS AND TEACH, IT TECHNICIAN/COMMERCIAL CONSTRUCTION PROJECT MANAGER TO OBSERVE AND TEACH INTEGUMENTARY STATUS RELATED [...] LECULAR TESTING PROTOCOL UP TO 2 PRN RN/IT TECHNICIAN/COMMERCIAL CONSTRUCTION PROJECT MANAGER VISITS MAY BE PERFORMED FOR S/S OF UTI. RN TO ASSESS, IT TECHNICIAN/COMMERCIAL CONSTRUCTION PROJECT MANAGER TO OBSERVE INITIATION OF UTI PROTOCOL. RN/COMMERCIAL CONSTRUCTION PROJECT MANAGER/IT TECHNICIAN TO INSTRUCT PATIENT AND/OR CAREGIVER ON S/S OF UTI TO REPORT TO RN/COMMERCIAL CONSTRUCTION PROJECT MANAGER/IT TECHNICIAN IF NEW OR WORSENING SYMPTOMS. DRINK PLENTY OF WATER THROUGHOUT THE DAY TO MAINTAIN HYDRATION (UNLESS CONTRAINDICATED.) URINATE WHEN THE URGE IS FELT, DO NOT WAIT. WASH GENITALS DAILY. WIPE FROM FRONT TO BACK AFTER HAVING A BOWEL MOVEMENT. RN/COMMERCIAL CONSTRUCTION PROJECT MANAGER/IT TECHNICIAN TO OBTAIN MOLECULAR URINE TESTING BY OPTION 1 OR OPTION 2 (OPTION 1) RN/COMMERCIAL CONSTRUCTION PROJECT MANAGER/IT TECHNICIAN TO OBTAIN U/A WITH REFLEX TO UTI PANEL (MOLECULAR) VIA CLEAN CATCH URINE AND IF UNABLE TO OBTAIN MAY PERFORM AN IN AND OUT CATH. IF PATIENT HAS INDWELLING CATHETER MAY OBTAIN FROM SAMPLING PORT. (OPTION 2) RN/COMMERCIAL CONSTRUCTION PROJECT MANAGER/IT TECHNICIAN TO OBTAIN UTI PANEL (MOLECULAR) VIA SWAB COLLECTION METHOD FROM ADULT BRIEF/DIAPER OR PAD IF PATIENT IS INCONTINENT. NOTIFY PROVIDER OF RESULTS AND OBTAIN FURTHER ORDERS. [code = URINARY MOLECULAR TESTING PROTOCOL UP TO 2 PRN RN/IT TECHNICIAN/COMMERCIAL CONSTRUCTION PROJECT MANAGER VISITS MAY BE PERFORMED FOR S/S OF UTI. RN TO ASSESS, IT TECHNICIAN/COMMERCIAL CONSTRUCTION PROJECT MANAGER TO OBSERVE INITIATION OF UTI PROTOCOL. RN/COMMERCIAL CONSTRUCTION PROJECT MANAGER/IT TECHNICIAN TO INSTRUCT PATIENT AND/OR CAREGIVER ON S/S OF UTI TO REPORT TO RN/COMMERCIAL CONSTRUCTION PROJECT MANAGER/IT TECHNICIAN IF NEW OR WORSENING SYMPTOMS. DRINK PLENTY OF WATER THROUGHOUT THE DAY TO MAINTAIN HYDRATION (UNLESS CONTRAINDICATED.) URINATE WHEN THE URGE IS FELT, DO NOT WAIT. WASH GENITALS DAILY. WIPE FROM FRONT TO BACK AFTER HAVING A BOWEL MOVEMENT. RN/COMMERCIAL CONSTRUCTION PROJECT MANAGER/IT TECHNICIAN TO OBTAIN MOLECULAR URINE TESTING BY OPTION 1 OR OPTION 2 (OPTION 1) RN/COMMERCIAL CONSTRUCTION PROJECT MANAGER/IT TECHNICIAN TO OBTAIN U/A WITH REFLEX TO UTI PANEL (MOLECULAR) VIA CLEAN CATCH URINE AND IF UNABLE TO OBTAIN MAY PERFORM AN IN AND OUT CATH. IF PATIENT HAS INDWELLING CATHETER MAY OBTAIN FROM SAMPLING PORT. (OPTION 2) RN/COMMERCIAL CONSTRUCTION PROJECT MANAGER/IT TECHNICIAN TO OBTAIN UTI PANEL (MOLECULAR) VIA SWAB COLLECTION METHOD FROM ADULT BRIEF/DIAPER OR PAD IF PATIENT IS INCONTINENT. NOTIFY PROVIDER OF RESULTS AND OBTAIN FURTHER ORDERS.] Future Scheduled Test URINARY CU LTURE AND SENSITIVITY PROTOCOL UP TO 2 PRN RN/IT TECHNICIAN/COMMERCIAL CONSTRUCTION PROJECT MANAGER VISITS MAY BE PERFORMED FOR S/S OF UTI. RN TO ASSESS, IT TECHNICIAN/COMMERCIAL CONSTRUCTION PROJECT MANAGER TO OBSERVE INITIATION OF UTI PROTOCOL. RN/COMMERCIAL CONSTRUCTION PROJECT MANAGER/IT TECHNICIAN TO INSTRUCT PATIENT AND/OR CAREGIVER ON S/S OF UTI TO REPORT TO RN/IT TECHNICIAN/COMMERCIAL CONSTRUCTION PROJECT MANAGER IF NEW OR WORSENING SYMPTOMS. DRINK PLENTY OF WATER THROUGHOUT THE DAY TO MAINTAIN HYDRATION (UNLESS CONTRAINDICATED.) URINATE WHEN THE URGE IS FELT, DO NOT WAIT. WASH GENITALS DAILY. WIPE FROM FRONT TO BACK AFTER HAVING A BOWEL MOVEMENT. RN/COMMERCIAL CONSTRUCTION PROJECT MANAGER/IT TECHNICIAN TO OBTAIN UA WITH C/S VIA CLEAN CATCH URINE AND IF UNABLE TO OBTAIN MAY PERFORM AN IN AND OUT CATH. IF PATIENT HAS INDWELLING CATHETER MAY OBTAIN FROM SAMPLING PORT. NOTIFY PROVIDER OF RESULTS AND OBTAIN FURTHER ORDERS. [code = URINARY CULTURE AND SENSITIVITY PROTOCOL UP TO 2 PRN RN/IT TECHNICIAN/COMMERCIAL CONSTRUCTION PROJECT MANAGER VISITS MAY BE PERFORMED FOR S/S OF UTI. RN TO ASSESS, IT TECHNICIAN/COMMERCIAL CONSTRUCTION PROJECT MANAGER TO OBSERVE INITIATION OF UTI PROTOCOL. RN/COMMERCIAL CONSTRUCTION PROJECT MANAGER/IT TECHNICIAN TO INSTRUCT PATIENT AND/OR CAREGIVER ON S/S OF UTI TO REPORT TO RN/IT TECHNICIAN/COMMERCIAL CONSTRUCTION PROJECT MANAGER IF NEW OR WORSENING SYMPTOMS. DRINK PLENTY OF WATER THROUGHOUT THE DAY TO MAINTAIN HYDRATION (UNLESS CONTRAINDICATED.) URINATE WHEN THE URGE IS FELT, DO NOT WAIT. WASH GENITALS DAILY. WIPE FROM FRONT TO BACK AFTER HAVING A BOWEL MOVEMENT. RN/COMMERCIAL CONSTRUCTION PROJECT MANAGER/IT TECHNICIAN TO OBTAIN UA WITH C/S VIA CLEAN CATCH URINE AND IF UNABLE TO OBTAIN MAY PERFORM AN IN AND OUT CATH. IF PATIENT HAS INDWELLING CATHETER MAY OBTAIN FROM SAMPLING PORT. NOTIFY PROVIDER OF RESULTS AND OBTAIN FURTHER ORDERS.] Future Scheduled Test WOUND MOLE CULAR TESTING PROTOCOL UP TO 3 PRN RN/IT TECHNICIAN VISITS MAY BE PERFORMED FOR S/S OF WOUND INFECTION/DETERIORATION/STAGNATION. RN TO ASSESS, IT TECHNICIAN/COMMERCIAL CONSTRUCTION PROJECT MANAGER TO OBSERVE AND INITIATE PROTOCOL. RN/IT TECHNICIAN/COMMERCIAL CONSTRUCTION PROJECT MANAGER TO INSTRUCT PATIENT AND/OR CAREGIVER ON S/S OF WOUND INFECTION/DETERIORATION/STAGNATION TO REPORT TO NURSE IF NEW OR WORSENING SYMPTOMS. RN/IT TECHNICIAN/COMMERCIAL CONSTRUCTION PROJECT MANAGER TO OBTAIN MOLECULAR WOUND TESTING VIA SWAB COLLECTION PER POLICY. [id number] NOTIFY PROVIDER OF RESULTS AND OBTAIN FURTHER ORDERS. [code = WOUND MOLECULAR TESTING PROTOCOL UP TO 3 PRN RN/IT TECHNICIAN VISITS MAY BE PERFORMED FOR S/S OF WOUND INFECTION/DETERIORATION/STAGNATION. RN TO ASSESS, IT TECHNICIAN/COMMERCIAL CONSTRUCTION PROJECT MANAGER TO OBSERVE AND INITIATE PROTOCOL. RN/IT TECHNICIAN/COMMERCIAL CONSTRUCTION PROJECT MANAGER TO INSTRUCT PATIENT AND/OR CAREGIVER ON S/S OF WOUND INFECTION/DETERIORATION/STAGNATION TO REPORT TO NURSE IF NEW OR WORSENING SYMPTOMS. RN/IT TECHNICIAN/COMMERCIAL CONSTRUCTION PROJECT MANAGER TO OBTAIN MOLECULAR WOUND TESTING VIA SWAB [...] End Date/Time Encounter Type Admission Type Attending [facility] Care Department Encounter ID Discharge Date Discharge Status Discharge Condition Discharge Reason Percent Goals Met 2024-03-13 00:00:00 2024-09-08 00:00:00 Outpatient RECERTIFIC ATION RADHA MAI [facility] [id number] 48.00
--- OUTSIDE RECORDS SUMMARY | 2024-08-23 06:09 | XMS_ITS | Encounter Summary ---
Author Organization [facility] Address [address] [place] [address] Care Team Providers Care Learning Solutions Specialist Name Role Phone Pepe Martel MD Primary Care Provider [phone] Encounter Details Date Type Department Care Team (Late st Contact Info) Description 08/18/2021 Lab Requisition [facility] [address] [place] [address] [place] [address] [place] [address] Social History Tobacco Use Types Packs/Day Years [...] SCAN HEMATOLOGY (08/18/2021 2:35 AM CDT) Pathologist [facility] Platelet Estimation Adequate platelets Normal, Adequate platelets 08/18/2021 10:16 AM CDT [facility] Clumped Platelets Occasional(A ) None 08/18/2021 10:16 AM CDT [facility] Blood BLOOD SPECIMEN / Unknown Venipuncture / Unknown 08/18/2021 2:35 AM CDT 08/18/2021 8:49 AM CDT Vinicio Quintanilla MD LAB - HEMATOLOGY ORD ERABLES Performing Organization Address City/State/[facility] Co de Phone Number [facility] [address] [place] [address] * (ABNORMAL) COMPREHENSIVE METABOLIC PANEL (08/18/2021 2:35 AM CDT) Pathologist [facility] Glucose 131(H) 70 - 105 mg/dL 08/18/2021 9:47 AM CDT [facility] Sodium 139 136 - 145 mmol/L 08/18/2021 9:47 AM CDT [facility] Potassium 4.7 3.5 - 5.1 mmol/L 08/18/2021 9:47 AM CDT [facility] Chloride 101 98 - 107 mmol/L 08/18/2021 9:47 AM CDT [facility] CO2 24 23 - 31 mmol/L 08/18/2021 9:47 AM CDT [facility] Calcium 9.9 8.4 - 10.4 mg/dL 08/18/2021 9:47 AM CDT [facility] Anion Gap 14 8 - 18 mmol/L 08/18/2021 9:47 AM CDT [facility] BUN 24(H) 8.9 - 20.6 mg/dL 08/18/2021 9:47 AM CDT [facility] Creatinine 0.78 0.72 - 1.25 mg/dL 08/18/2021 9:47 AM CDT [facility] Alkaline Phosphatase 134 40 - 150 U/L 08/18/2021 9:47 AM CDT [facility] ALT 20 0 - 61 U/L 08/18/2021 9:47 AM CDT [facility] AST 14 5 - 34 U/L 08/18/2021 9:47 AM CDT [facility] Protein Total 7.4 6.4 - 8.3 gm/dL 08/18/2021 9:47 AM CDT [facility] Albumin 3.5 3.5 - 5.2 gm/dL 08/18/2021 9:47 AM CDT [facility] Bilirubin Total 0.2 0.2 - 1.2 mg/dL 08/18/2021 9:47 AM CDT [facility] eGFR by CKD-EPI >90 >=90 mL/min/1.7 3 m2 08/18/2021 9:47 AM CDT [facility] Blood BLOOD SPECIMEN / Unknown Venipuncture / Unknown 08/18/2021 2:35 AM CDT 08/18/2021 8:49 AM CDT [facility] - 08/18/2021 9:47 AM CDT eGFR result was calculated using the updated CKD-EPI Creatinine Equations (2020). Prior to go live 2021 the eGFR was calculated using the MDRD calculation. Please note Reference Range change. Vinicio Quintanilla MD LAB - CHEMISTRY JOSE ENRIQUE VELA [facility] Organization Address City/State/ZIP Co de Phone Number [facility] [address] [place] [address] * (ABNORMAL) CBC WITH DIFFERENTIAL (08/18/2021 2:35 AM CDT) WBC 7.2 4.4 - 10.7 x10E9/L 08/18/2021 9:34 AM CDT [facility] WBC Corrected 08/18/2021 9:34 AM CDT [facility] RBC 3.95 3.80 - 5.40 x10E12/L 08/18/2021 9:34 AM CDT [facility] Hemoglobin 10.5(L) 12.0 - 17.6 gm/dL 08/18/2021 9:34 AM CDT [facility] Hematocrit 33.9(L) 35.2 - 51.7 % 08/18/2021 9:34 AM CDT [facility] MCV 85.8 80.7 - 98.3 fl 08/18/2021 9:34 AM CDT [facility] MCH 26.6(L) 26.7 - 34.0 pg 08/18/2021 9:34 AM CDT [facility] MCHC 31.0 30.8 - 35.9 gm/dL 08/18/2021 9:34 AM CDT [facility] Platelet Count 367 153 - 416 x10E9/L 08/18/2021 9:34 AM CDT [facility] RDW-CV 14.9 12.1 - 14.9 % 08/18/2021 9:34 AM CDT [facility] MPV 10.5 9.4 - 12.9 fl 08/18/2021 9:34 AM CDT [facility] Neutrophils % 65.2 44.0 - 73.0 % 08/18/2021 9:34 AM CDT [facility] Lymphocytes % 22.3 20.0 - 43.0 % 08/18/2021 9:34 AM CDT [facility] Monocytes % 8.5 5.0 - 13.0 % 08/18/2021 9:34 AM CDT [facility] Eosinophils % 3.3 0.0 - 6.0 % 08/18/2021 9:34 AM CDT [facility] Basophils % 0.4 0.0 - 2.0 % 08/18/2021 9:34 AM CDT [facility] Immature Granulocytes 0.3 0 - 1 % 08/18/2021 9:34 AM CDT [facility] Neutrophil Absolute 4.70 2.01 - 7.14 x10E9/L 08/18/2021 9:34 AM CDT [facility] Lymphocytes Absolute 1.61 1.07 - 3.94 x10E9/L 08/18/2021 9:34 AM CDT [facility] Monocytes Absolute 0.61 0.26 - 1.07 x10E9/L 08/18/2021 9:34 AM CDT [facility] Eosinophils Absolute 0.24 0 - 0.47 x10E9/L 08/18/2021 9:34 AM CDT [facility] Basophils Absolute 0.03 0 - 0.08 x10E9/L 08/18/2021 9:34 AM CDT [facility] Immature Granulocytes Absolute 0.02 0.00 - 0.06 x10E9/L 08/18/2021 9:34 AM CDT [facility] nRBC Auto 0 /100 WBC 08/18/2021 9:34 AM CDT [facility] Blood BLOOD SPECIMEN / Unknown Venipuncture / Unknown 08/18/2021 2:35 AM CDT 08/18/2021 8:49 AM CDT Vinicio Quintanilla MD LAB - HEMATOLOGY ORD ERABLES [facility] [address] [place], [place] [id number] documented in this encounter Visit Diagnoses Not on filedocumented in this encounter Care Teams Learning Solutions Specialist Relationship Specialty Start Date End Date Pepe Martel MD [address] [place] [id number] PCP - General 08/14/16 documented as of this encounter
--- OUTSIDE RECORDS SUMMARY | 2024-08-23 06:09 | XMS_ITS | Encounter Summary ---
Author Organization [facility] Address [address] [place] [address] Care Team Providers Care Marriage Performer Name Role Phone Pepe Martel MD Primary Care Provider [phone] Encounter Details Date Type Department Care Team (Late st Contact Info) Description 11/13/2021 Lab Requisition [facility] [address] [place] [address] [place] [address] [place] [address] Social History Tobacco Use Types Packs/Day Years [...] [facility] nRBC 11/13/2021 10:56 AM CDT [facility] Neutrophil % Manual 60 44 - 73 % 11/13/2021 10:56 AM CDT [facility] Lymphocytes % Manual 26 20 - 43 % 11/13/2021 10:56 AM CDT [facility] Monocytes % Manual 11 5 - 13 % 11/13/2021 10:56 AM CDT [facility] Eosinophils % Manual 1 0 - 6 % 11/13/2021 10:56 AM CDT [facility] Basophils % Manual 1 0 - 2 % 11/13/2021 10:56 AM CDT [facility] Neutrophils Absolute Manual 4.38 2.01 - [...] - 0.08 x10E9/L 11/13/2021 10:56 AM CDT [facility] Atypical Lymphocytes Absolute Manual 0.07(H) <=0.00 x10E9/L 11/13/2021 10:56 AM CDT [facility] Atypical Lymphocyte % Manual 1(H) <=0 % 11/13/2021 10:56 AM CDT [facility] Cells Counted 100 # cells 11/13/2021 10:56 AM CDT [facility] Platelet Estimation Adequate platelets Normal, Adequate platelets 11/13/2021 10:56 AM CDT [facility] RBC Morphology Normal 11/13/2021 10:56 AM CDT [facility] WBC Morph Normal 11/13/2021 10:56 AM CDT [facility] Clumped Platelets 1+(A) None 11/13/2021 10:56 AM CDT [facility] Blood BLOOD SPECIMEN / Unknown Venipuncture / Unknown 11/13/2021 5:48 AM CDT 11/13/2021 9:23 AM CDT Vinicio Quintanilla MD LAB - HEMATOLOGY ORD ERABLES [facility] [address] [place] [address] * (ABNORMAL) CBC WITH DIFFERENTIAL (11/13/2021 5:48 AM CDT) WBC 7.3 4.4 - 10.7 x10E9/L 11/13/2021 10:23 AM CDT [facility] WBC Corrected 11/13/2021 10:23 AM CDT [facility] RBC 3.86 3.80 - 5.40 x10E12/L 11/13/2021 10:23 AM CDT [facility] Hemoglobin 10.5(L) 12.0 - 17.6 gm/dL 11/13/2021 10:23 AM CDT [facility] Hematocrit 33.2(L) 35.2 - 51.7 % 11/13/2021 10:23 AM CDT [facility] MCV 86.0 80.7 - 98.3 fl 11/13/2021 10:23 AM CDT [facility] MCH 27.2 26.7 - 34.0 pg 11/13/2021 10:23 AM CDT [facility] MCHC 31.6 30.8 - 35.9 gm/dL 11/13/2021 10:23 AM CDT [facility] Platelet Count 371 153 - 416 x10E9/L 11/13/2021 10:23 AM CDT [facility] RDW-CV 13.4 12.1 - 14.9 % 11/13/2021 10:23 AM CDT [facility] MPV 10.0 9.4 - 12.9 fl 11/13/2021 10:23 AM CDT [facility] nRBC Auto 0 /100 WBC 11/13/2021 10:23 AM CDT [facility] Blood BLOOD SPECIMEN / Unknown Venipuncture / Unknown 11/13/2021 5:48 AM CDT 11/13/2021 9:23 AM CDT Vinicio Quintanilla MD LAB - HEMATOLOGY ORD ERABLES Performing Organization Address City/State/[facility] Co de Phone Number [facility] [address] [place] [address] * (ABNORMAL) COMPREHENSIVE METABOLIC PANEL (11/13/2021 5:48 AM CDT) Glucose 119(H) 70 - 105 mg/dL 11/13/2021 10:48 AM CDT [facility] Sodium 141 136 - 145 mmol/L 11/13/2021 10:48 AM CDT [facility] Potassium 4.7 3.5 - 5.1 mmol/L 11/13/2021 10:48 AM CDT [facility] Chloride 107 98 - 107 mmol/L 11/13/2021 10:48 AM CDT [facility] CO2 23 23 - 31 mmol/L 11/13/2021 10:48 AM CDT [facility] Calcium 9.9 8.4 - 10.4 mg/dL 11/13/2021 10:48 AM CDT [facility] Anion Gap 11 8 - 18 mmol/L 11/13/2021 10:48 AM CDT [facility] BUN 28(H) 8.9 - 20.6 mg/dL 11/13/2021 10:48 AM CDT [facility] Creatinine 0.92 0.72 - 1.25 mg/dL 11/13/2021 10:48 AM CDT [facility] Alkaline Phosphatase 132 40 - 150 U/L 11/13/2021 10:48 AM CDT [facility] ALT 41 0 - 61 U/L 11/13/2021 10:48 AM CDT [facility] AST 25 5 - 34 U/L 11/13/2021 10:48 AM CDT [facility] Protein Total 7.1 6.4 - 8.3 gm/dL 11/13/2021 10:48 AM CDT [facility] Albumin 3.4(L) 3.5 - 5.2 gm/dL 11/13/2021 10:48 AM CDT [facility] Bilirubin Total 0.2 0.2 - 1.2 mg/dL 11/13/2021 10:48 AM CDT [facility] eGFR by CKD-EPI >90 >=90 mL/min/1.7 3 m2 11/13/2021 10:48 AM CDT [facility] Blood BLOOD SPECIMEN / Unknown Venipuncture / Unknown 11/13/2021 5:48 AM CDT 11/13/2021 9:23 AM CDT Vinicio Quintanilla MD LAB - CHEMISTRY JOSE ENRIQUE [facility] Organization Address City/State/[facility] Co de Phone Number [facility] [address] [place], [place] [phone] documented in this encounter Visit Diagnoses Not on filedocumented in this encounter Care Teams Marriage Performer Relationship Specialty Start Date End Date Pepe Martel MD [address] [place] [address] [address] [place] [address] PCP - General 08/14/16 documented as of this encounter
--- OUTSIDE RECORDS SUMMARY | 2024-08-23 06:09 | XMS_ITS | Encounter Summary ---
Author Organization [facility] Address [address] [place] [address] Care Team Providers Care Filling Hauler Weaving Name Role Phone Pepe Martel MD Primary Care Provider [phone] Encounter Details Date Type Department Care Team (Late st Contact Info) Description 10/09/2021 Lab Requisition [facility] [address] [place] [address] [place] [address] [place] [address] Social History Tobacco Use Types Packs/Day Years [...] - 43.0 % 10/09/2021 9:11 AM CDT [facility] Monocytes % 11.0 5.0 - 13.0 % 10/09/2021 9:11 AM CDT [facility] Eosinophils % 3.2 0.0 - 6.0 % 10/09/2021 9:11 AM CDT [facility] Basophils % 0.5 0.0 - 2.0 % 10/09/2021 9:11 AM CDT [facility] Immature Granulocytes 0.2 0 - 1 % 10/09/2021 9:11 AM CDT [facility] Neutrophil Absolute 5.49 2.01 - 7.14 x10E9/L 10/09/2021 9:11 AM CDT [facility] Lymphocytes Absolute 1.96 1.07 - 3.94 x10E9/L 10/09/2021 9:11 AM CDT [facility] Monocytes Absolute 0.96 0.26 - 1.07 x10E9/L 10/09/2021 9:11 AM CDT [facility] Eosinophils Absolute 0.28 0 - 0.47 x10E9/L 10/09/2021 9:11 AM CDT [facility] Basophils Absolute 0.04 0 - 0.08 x10E9/L 10/09/2021 9:11 AM CDT [facility] Immature Granulocytes Absolute 0.02 0.00 - 0.06 x10E9/L 10/09/2021 9:11 AM CDT [facility] nRBC Auto 0 /100 WBC 10/09/2021 9:11 AM T [facility] Blood BLOOD SPECIMEN / Unknown Venipuncture / Unknown 10/09/2021 5:27 AM CDT 10/09/2021 8:25 AM CDT Vinicio Quintanilla MD LAB - HEMATOLOGY ORD ERABLES [facility] [address] [place] [address] * (ABNORMAL) COMPREHENSIVE METABOLIC PANEL (10/09/2021 5:27 AM CDT) [facility] Glucose 123(H) 70 - 105 mg/dL 10/09/2021 9:28 AM CDT [facility] Sodium 143 136 - 145 mmol/L 10/09/2021 9:28 AM CDT [facility] Potassium 4.6 3.5 - 5.1 mmol/L 10/09/2021 9:28 AM CDT [facility] Chloride 105 98 - 107 mmol/L 10/09/2021 9:28 AM CDT [facility] CO2 24 23 - 31 mmol/L 10/09/2021 9:28 AM CDT [facility] Calcium 10.0 8.4 - 10.4 mg/dL 10/09/2021 9:28 AM [facility] Anion Gap 14 8 - 18 mmol/L 10/09/2021 9:28 AM CDT [facility] BUN 31(H) 8.9 - 20.6 mg/dL 10/09/2021 9:28 AM [facility] Creatinine 0.93 0.72 - 1.25 mg/dL 10/09/2021 9:28 AM [facility] Alkaline Phosphatase 150 40 - 150 U/L 10/09/2021 9:28 AM CDT [facility] ALT 25 0 - 61 U/L 10/09/2021 9:28 AM CDT [facility] AST 20 5 - 34 U/L 10/09/2021 9:28 AM [facility] Protein Total 7.4 6.4 - 8.3 gm/dL 10/09/2021 9:28 AM [facility] Albumin 3.6 3.5 - 5.2 gm/dL 10/09/2021 9:28 AM T [facility] Bilirubin Total 0.4 0.2 - 1.2 mg/dL 10/09/2021 9:28 AM [facility] eGFR by CKD-EPI >90 >=90 mL/min/1.7 3 m2 10/09/2021 9:28 AM T [facility] Blood BLOOD SPECIMEN / Unknown Venipuncture / Unknown 10/09/2021 5:27 AM CDT 10/09/2021 8:25 AM CDT Vinicio Quintanilla MD LAB - CHEMISTRY JOSE ENRIQUE VELA [facility] Organization Address City/State/ZIP Co de Phone Number [facility] [address] [place] [address] documented in this encounter Visit Diagnoses Not on filedocumented in this encounter Care Teams Filling Hauler Weaving Relationship Specialty Start Date End Date Pepe Martel MD [address] [place] [id number] PCP - General 08/14/16 documented as of this encounter
--- NOTE | 2024-08-23 06:45 | PC.NURSE ---
This RN and AIDA Del Toro attempted multiple times to obtain IV access without success. ED supercharger repair supervisor notified stating pt can be taken to CT first.
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
[2024-08-23] MEDS: SODIUM CHLORIDE 0.9% IV 1,000 ML 999 ML IV CONT (07:36)
[2024-08-23 07:44] LABS: Basophils Percent Auto 0.6 % (0.2-1.2); Eosinophils Absolute Auto 0.2 K/mm3 (0-0.3); Eosinophils Percent Auto 6.4 % (0-4.4); Hematocrit 40.4 % (42.0-52.0); Hemoglobin 12.4 g/dL (14.0-18.0); Immature Granulocyte Absolute 0.01 K/mm3 (0.00-0.031); Immature Granulocyte Percent A 0.3 % (0-0.5); Lymphocytes Absolute Auto 0.98 K/mm3 (0.9-3.2); Lymphocytes Percent Auto 30.1 % (18.3-44.2); Mean Corpuscular HGB Conc 30.7 g/dl (32-36); Mean Corpuscular Hemoglobin 25.1 pg (26-34); Mean Corpuscular Volume 81.8 fl (80-100); Mean Platelet Volume 9.3 fl (7.4-10.4); Monocytes Absolute Auto 0.4 K/mm3 (0.1-0.6); Neutrophils Absolute Auto 1.7 K/mm3 (1.3-6.7); Neutrophils Percent Auto 51.6 % (45.5-73.1); Platelet Count Result 292 k/mm3 (150-375); Red Blood Count 4.94 M/mm3 (4.6-6.20); Red Cell Distribution Width 15.7 % (11.5-14.5); White Blood Count 3.3 K/mm3 (4.5-10.0)
[2024-08-23 07:59] LABS: Alanine Aminotransferase 18 U/L (6-50); Albumin Level 4.2 g/dL (3.5-5.1); Alkaline Phosphatase 107 U/L (38-126); Anion Gap 9 mmol/L (4-12); Aspartate Amino Transferase 21 U/L (17-59); Bilirubin,Total 0.6 mg/dL (0.2-1.3); Blood Urea Nitrogen 15 mg/dL (9-20); Calcium 9.4 mg/dL (8.4-10.2); Carbon Dioxide 25 mmol/L (22-30); Chloride 103 mmol/L (98-107); Estimated CRCL calculation 113 ml/min; Estimated Glomerular Filt Rate > 60; Glucose 80 mg/dL (65-110); Lactic Acid Reflex 0.6 mmol/L (0.7-2.0); Lipase 141 U/L (23-300); Potassium 4.1 mmol/L (3.4-5.0); Sodium 137 mmol/L (137-145)
[2024-08-23 09:38] LABS: Alveolar/Arterial O2 Gradient 45.1 mmHg; Base Excess ABG 0.3 mEq/l (+/-2.0); Fractional Inspired Oxygen 21 %; HCO3 ABG 23.5 mEq/l (22.0-26.0); Oxygen Content ABG 16.4 %vol (16.0-22.0); Oxygen Saturation ABG 93.9 % (95.0-100.0); Oxyhemoglobin 92.7 % THb (90.0-100.0); PCO2 ABG 33.6 mmHg (35.0-45.0); PO2 ABG 64.4 mmHg (80.0-100.0); PO2 FiO2 Ratio Arterial Blood 3.07 %; Total Hemoglobin 12.6 g/dL (12.0-18.0); pH ABG 7.463 (7.350-7.450)
[2024-08-23 09:39] LABS: Device ROOM AIR; Modified Allen's Test Pass; Site Drawn RIGHT RADIAL
--- NOTE | 2024-08-23 12:03 | PC.NURSE ---
1203 Called pts mother to update her on pt leaving ED and on his way back home via EMS.
== END 2024-08-23 12:06 | disposition home or self-care (01) ==
PROVIDERS: Preventive Medicine Aerospace Medicine; Emergency Provider Emergency Medicine; PCP Emergency Medicine
DX: K43.9 Ventral hernia without obstruction or gangrene (principal); K59.00 Constipation, unspecified; J18.9 Pneumonia, unspecified organism; I10 Essential (primary) hypertension; Z87.820 Personal history of traumatic brain injury; Z93.1 Gastrostomy status
CPT/HCPCS: 36415; 36600; 74176; 80053; 82805; 83605; 83690; 85018; 85025; 96360; 99284; J7030

== ENCOUNTER 2024-12-28 16:42 | Inpatient (IN) | payer MEDICARE, MEDICAID, SELFPAY ==
--- NOTE | ~2024-12-28 | XR_ITS ---
EXAMINATION: XR chest 1V portable 01/04/2025 10:04 INDICATION: Cough with history of trach TECHNIQUE:A single portable AP upright frontal image of the chest was obtained. COMPARISON: 12/28/2024 and 05/19/2024 FINDINGS: Moderate elevation right hemidiaphragm, unchanged. No pneumothorax. No pleural effusion. Moderate-sized patchy opacities in the right lower lung. IMPRESSION: 1: Moderate-sized patchy opacities in the right lower lung. Differential includes atelectasis or pneumonia. Recommend follow-up to resolution is an underlying mass. Reviewed, dictated and finalized at location A. IMPRESSION: 1: Moderate-sized patchy opacities in the right lower lung. Differential inclu estee atelectasis or pneumonia. Recommend follow-up to resolution is an underlyin g mass.
--- NOTE | ~2024-12-28 | XR_ITS ---
EXAMINATION: XR chest 1V portable Exam Date/Time: 12/28/2024 17:30 CDT HISTORY: cough Comparison: 05/19/2024. RESULT: Lines, tubes, and devices: None. Lungs and pleura: Significant rightward rotation. Persistent right hemidiaphragm elevation. Segmenta l consolidation in the medial right lower lung. Cardiomediastinal silhouette: Stable. Other: No acute osseous or upper abdominal finding. IMPRESSION: Examination limited by significant rotation. Segmental consolidation in the medial right lower lung, which may represent atelectasis, infection or aspiration, depending on the clinical context. Recommend radiographic follow-up to demonstrate resol ution. Reviewed, dictated and finalized at location K. IMPRESSION: Examination limited by significant rotation. Segmental consolidation in the medial right lower lung, which may represent ate lectasis, infection or aspiration, depending on the clinical context. Recommend radiographic follow-up to demonstrate resolution.
--- NOTE | ~2024-12-28 | XR_ITS ---
XR abdomen/kub 1V 12/30/2024 09:03 Indication: Nausea Procedure: KUB Comparison: 08/04/2022 Findings: Moderate gas present in the colon. No significant small bowel dilation. There is fecal impa ction of the rectum. There is levoscoliosis of the lumbar spine. No acute osseous abnormality. Impression: 1: Fecal impaction of the rectum with moderate gas in the colon. Reviewed, dictated and finalized at location A. Impression: 1: Fecal impaction of the rectum with moderate gas in the colon.
--- NOTE | ~2024-12-28 | XR_ITS ---
XR abdomen/kub 1V 01/07/2025 07:45 Indication: Stool impaction Procedure: KUB Comparison: 01/06/2025 Findings: Decreased amount of stool in the rectum overlying for differences of technique compared with 01/06/2025. There is moderate gas in the right colon. No definite small bowel dilation is seen. Impression: 1: Nonspecific bowel gas pattern with reduced stool in the distal colon/rectum. Reviewed, dictated and finalized at location O. Impression: 1: Nonspecific bowel gas pattern with reduced stool in the distal colon/rectum.
--- NOTE | ~2024-12-28 | CT_ITS ---
EXAMINATION: CT diagnostic chest wo con DATE: 12/29/2024 09:38 INDICATION: Hemoptysis. TECHNIQUE: Computed tomography (CT) of the chest was performed without intravenous contrast. The dose -length product was 194.15 mGy-cm. COMPARISON: None FINDINGS: The patient is leaning and rotated to the left which limits evaluation. Possible enlarged right hilar and subcarinal lymph nodes, however, evaluation is limited due to the l ack of contrast administration. Moderate-sized consolidation with air bronchograms in the right upper lobe which extends from the rig ht hilum to the pleura. In addition, there is a moderate to large consolidation with air bronchograms in the right lower lobe which extends from the right hilum to the pleura. The right mainstem bronchus is partially opacified No pleural effusion. No pneumothorax. Heart is not enlarged. Thoracic aorta is grossly unremarkable. There appears to be a PEG tube. Evaluation of the upper abdomen is significantly limited as detailed above. IMPRESSION: 1. Evaluation is significantly limited as detailed above. Consider a follow-up study with contrast fo r further assessment. 2. Moderate-sized consolidation with air bronchograms in the right upper lobe which extends from the right hilum to the pleura. In addition, there is a moderate to large consolidation with air bronchogr ams in the right lower lobe which extends from the right hilum to the pleura.The findings may be seco ndary to multilobar pneumonia, however, a malignant process is possible. A short-term follow-up chest CT in 3-5 days following treatment is recommended. Consider a PET/CT. 3. Possible enlarged right hilar and subcarinal lymph nodes, however, evaluation is limited due to th e lack of contrast administration. 4.The right mainstem bronchus is partially opacified. The finding is nonspecific. Correlate clinicall y. Reviewed, dictated and finalized at location A. IMPRESSION: 1. Evaluation is significantly limited as detailed above. Consider a follow-up study with contrast for further assessment. 2. Moderate-sized consolidation with air bronchograms in the right upper lobe w hich extends from the right hilum to the pleura. In addition, there is a modera te to large consolidation with air bronchograms in the right lower lobe which e xtends from the right hilum to the pleura.The findings may be secondary to mult ilobar pneumonia, however, a malignant process is possible. A short-term follow -up chest CT in 3-5 days following treatment is recommended. Consider a PET/CT. 3. Possible enlarged right hilar and subcarinal lymph nodes, however, evaluatio n is limited due to the lack of contrast administration. 4.The right mainstem bronchus is partially opacified. The finding is nonspecifi c. Correlate clinically.
--- NOTE | ~2024-12-28 | XR_ITS ---
XR abdomen/kub 1V 01/06/2025 09:16 Indication: Stool impaction Procedure: KUB Comparison: Comparison to multiple prior studies sequentially, with oldest reviewed study dated 07/06/2022. Findings: There is persistent fecal impaction of the rectum. There is moderate fecal material in the proximal colon. No significant small bowel dilation. No abnormal calcifications. There is levoscoliosis. There are moderate degenerative changes of the hips. Impression: 1: Fecal impaction of the rectum and right colon. No significant change. Reviewed, dictated and finalized at location O. Impression: 1: Fecal impaction of the rectum and right colon. No significant change.
--- NOTE | ~2024-12-28 | XR_ITS ---
EXAMINATION: XR abdomen/kub 1V DATE: 01/05/2025 16:07 INDICATION: Check for fecal impaction. TECHNIQUE: A supine view of the abdomen on 2 radiographs was obtained. COMPARISON: 12/30/2024 FINDINGS: Moderate amount of air in nondilated large bowel. Small amount of air in nondilated small bowel. Large amount of stool throughout the colon. Large amount of stool in the distal sigmoid colon and rectum.. The patient is leaning to the right and is rotated which limits evaluation. Evaluation is significantly limited due to positioning. IMPRESSION: 1. Large amount of stool in the distal sigmoid colon and rectum similar to the study from 12/30/2024. 2. Limited study as above. If continued concern, consider a CT of the abdomen and pelvis for further assessment. Reviewed, dictated and finalized at location Q. IMPRESSION: 1. Large amount of stool in the distal sigmoid colon and rectum similar to the study from 12/30/2024. 2. Limited study as above. If continued concern, consider a CT of the abdomen and pelvis for further asses sment.
[2024-12-28 16:42] VITALS: BP 100/88; PULSE 84; RESP 20; TEMP 36.7; O2SAT 100
[2024-12-28 17:11] VITALS: RESP 20; O2SAT 97
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
--- OUTSIDE RECORDS SUMMARY | 2024-12-28 17:48 | XMS_ITS | Encounter Summary ---
Author Organization [facility] Address [address] [place] [address] Care Team Providers Care Account Leader Name Role Phone Pepe Martel MD Primary Care Provider [phone] Encounter Details Date Type Department Care Team (Late st Contact Info) Description 05/22/2021 Lab Requisition [facility] [address] [place] [address] Lamberto De La Cruz MD [address] [facility] [address] [place] [address] Social History Tobacco Use Types Packs/Day Years Used Date Smoking Tobacco: Smoker, Current Status Unknown Smokeless Tobacco: Never Sex and Gender Information Value Date Recorded Sex Assigned at Not on file Legal Sex Male 2:55 AM CDT Gender Identity Male 02/15/2021 7:04 AM CDT Sexual Orientation Not on file documented as of this encounter Functional Status * Is person deaf or have serious hearing difficulty? Answer Date of Assessment Author No 02/15/2021 12:45 PM CDT Neela East RN * Is person blind or have serious difficulty seeing? Answer Date of Assessment Author No 02/15/2021 12:45 PM CDT Neela East RN * Does person have serious difficulty walking/climbing stairs? Answer Date of Assessment Author No 02/15/2021 12:45 PM Neela Toure RN * Does person have difficulty dressing/bathing? Answer Date of Assessment Author No 02/15/2021 12:45 PM Neela Toure RN * Does person have difficulty doing errands alone? Answer Date of Assessment Author No 02/15/2021 12:45 PM Neela Toure RN documented as of this encounter Mental Status * Does person have difficulty concentrating/remembering/making decisions? Answer Entry Date Author No 02/15/2021 12:45 PM Neela Toure RN documented in this encounter Plan of Treatment Not on file documented as of this encounter Procedures Procedure Name Priority Date/Time Associated Diagnosis Comments COMPREHENSIVE METABOLIC PANEL STAT 05/22/2021 4:26 AM POLYSTYRENE BEAD MOLDER VANCOMYCIN LEVEL TROUGH STAT 05/22/2021 4:26 AM POLYSTYRENE BEAD MOLDER documented in this encounter Results * (ABNORMAL) COMPREHENSIVE METABOLIC PANEL (05/22/2021 4:26 AM POLYSTYRENE BEAD MOLDER) Glucose 82 70 - 105 mg/dL 05/22/2021 10:29 AM [facility] Sodium 137 136 - 145 mmol/L 05/22/2021 10:29 AM [facility] Potassium 4.7 3.5 - 5.1 mmol/L 05/22/2021 10:29 AM [facility] Chloride 105 98 - 107 mmol/L 05/22/2021 10:29 AM [facility] CO2 23 23 - 31 mmol/L 05/22/2021 10:29 AM [facility] Calcium 9.0 8.4 - 10.4 mg/dL [...] 0.2 - 1.2 mg/dL 05/22/2021 10:29 AM [facility] eGFR by MDRD >60 >60 mL/min/1.7 3m2 05/22/2021 10:29 AM [facility] eGFR by MDRD >60 >60 mL/min/1.7 3m2 05/22/2021 10:29 AM [facility] Blood BLOOD SPECIMEN / Unknown Venipuncture / Unknown 05/22/2021 4:26 AM POLYSTYRENE BEAD MOLDER 05/22/2021 9:05 AM POLYSTYRENE BEAD MOLDER Lamberto De La Cruz MD LAB - CHEMISTRY ORDERABLES Final Result Performing Organization Address City/[facility]/ZIP Co de Phone Number [facility] [address] [place] [address] [phone] * VANCOMYCIN LEVEL TROUGH (05/22/2021 4:26 AM POLYSTYRENE BEAD MOLDER) [facility] Vancomycin Trough 15.5 10.0 - 20.0 ug/mL 05/22/2021 9:41 AM [facility] Blood BLOOD SPECIMEN / Unknown Venipuncture / Unknown 05/22/2021 4:26 AM POLYSTYRENE BEAD MOLDER 05/22/2021 9:05 AM POLYSTYRENE BEAD MOLDER Lamberto De La Cruz MD LAB - CHEMISTRY ORDERABLES Final Result Performing Organization Address City/[facility]/ZIP Co de Phone Number [facility] [address] [place] [phone] documented in this encounter Visit Diagnoses Not on filedocumented in this encounter Care Teams Account Leader Relationship Specialty Start Date End Date Pepe Martel MD [facility] [address] [address] PCP - General 08/14/16 documented as of this encounter
--- OUTSIDE RECORDS SUMMARY | 2024-12-28 17:49 | XMS_ITS | Encounter Summary ---
Author Organization [facility] Address [address] [place] [address] Care Team Providers Care Trauma Therapist Name Role Phone Pepe Martel MD Primary Care Provider [phone] Encounter Details Date Type Department Care Team (Late st Contact Info) Description 07/04/2021 Lab Requisition [facility] [address] [place] [address] Fredy Sue [address] [place] [id number] Social History Tobacco Use Types Packs/Day Years [...] MICROSCOPIC NO CULTURE STAT 07/04/2021 4:00 AM SCOOTER MECHANIC documented in this encounter Results * (ABNORMAL) URINALYSIS REFLEX TO MICROSCOPIC NO CULTURE (07/04/2021 4:00 AM SCOOTER MECHANIC) Color UA Yellow Straw, Yellow 07/04/2021 9:38 AM SCO[facility] MECHAN[facility] Clarity UA Cloudy(A) Clear 07/04/2021 9:38 AM SCOOTER MECHANIC [facility] Glucose UA Negative Negative 07/04/2021 9:38 AM SCOOTER MECHANIC [facility] Bilirubin UA Negative Negative 07/04/2021 9:38 AM SCOOTER MECHANIC [facility] Ketone UA Negative Negative 07/04/2021 9:38 AM SCOOTER MECHANIC [facility] Specific Gully UA 1.021 1.005 - 1.030 07/04/2021 9:38 AM SCOOTER MECHANIC [facility] Blood UA Negative Negative 07/04/2021 9:38 AM SCOOTER MECHANIC [facility] pH UA 7.0 5.0 - 8.0 pH 07/04/2021 9:38 AM SCOOTER MECHANIC [facility] Protein UA Negative Negative 07/04/2021 9:38 AM SCOOTER MECHANIC [facility] Urobilinogen UA Negative Negative mg/dL 07/04/2021 9:38 AM SCOOTER MECHANIC [facility] Nitrite UA Negative Negative 07/04/2021 9:38 AM SCOOTER MECHANIC [facility] Leukocyte Esterase UA Negative Negative 07/04/2021 9:38 AM SCOOTER MECHANIC [facility] Urine Microscopy Urine microscopy not indicated 07/04/2021 9:38 AM SCOOTER MECHANIC [facility] Urine URINE SPECIMEN OBTAINED BY CLEAN CATCH PROCEDURE / Unknown Collection / Unknown 07/04/2021 4:00 AM SCOOTER MECHANIC 07/04/2021 8:59 AM SCOOTER MECHANIC Narrative [facility] - 07/04/2021 9:38 AM SCOOTER MECHANIC Ascorbic Acid can cause false negative urine strip tests for blood, glucose, nitrite, and bilirubin. Fredy Sue LAB - URINALYSIS ORDERABLES Giselle adams Result Performing Organization Address City/State/[facility] Co de Phone Number [facility] [address] [place] [address] documented in this encounter Visit Diagnoses Not on filedocumented in this encounter Care Teams Trauma Therapist Relationship Specialty Start Date End Date Pepe Martel MD [address] [place] [address] [address] [place] [address] PCP - General 08/14/16 documented as of this encounter
--- OUTSIDE RECORDS SUMMARY | 2024-12-28 17:49 | XMS_ITS | Encounter Summary ---
Author Organization [facility] Address [address] [facility] [place] [address] Care Team Providers Care Police Lieutenant Patrol Name Role Phone Pepe Martel MD Primary Care Provider [phone] Encounter Details Date Type Department Care Team (Late st Contact Info) Description 07/31/2021 Lab Requisition [facility] [address] [place] [address] [place] [address] [place] [address] Social History Tobacco Use Types Packs/Day Years [...] Neela East RN * Does person have difficulty dressing/bathing? Answer Date of Assessment Author No 02/15/2021 12:45 PM CDT Neela East RN * Does person have difficulty doing errands alone? Answer Date of Assessment Author No 02/15/2021 12:45 PM CDT Neela East RN documented as of this encounter Mental Status * Does person have difficulty concentrating/remembering/making decisions? Answer Entry Date Author No 02/15/2021 12:45 PM CDT Neela East RN documented in this encounter Plan of Treatment Not on file documented as of this encounter Procedures Procedure Name Priority Date/Time Associated Diagnosis Comments CBC W AUTO DIFFERENTIAL STAT 07/31/2021 2:50 AM CDT COMPREHENSIVE METABOLIC PANEL STAT 07/31/2021 2:50 AM CDT documented in this encounter Results * (ABNORMAL) CBC WITH DIFFERENTIAL (07/31/2021 2:50 AM CDT) [facility] WBC 9.1 4.4 - 10.7 x10E9/L 07/31/2021 [...] - 35.9 gm/dL 07/31/2021 9:10 AM CDT [facility] Platelet Count 467(H) 153 - 416 x10E9/L 07/31/2021 9:10 AM CDT [facility] RDW-CV 14.7 12.1 - 14.9 % 07/31/2021 9:10 AM CDT [facility] MPV 10.3 9.4 - 12.9 fl 07/31/2021 9:10 AM [facility] Neutrophils % 71.3 44.0 - 73.0 % 07/31/2021 9:10 AM [facility] Lymphocytes % 11.8(L) 20.0 - 43.0 % 07/31/2021 9:10 AM T [facility] Monocytes % 8.8 5.0 - 13.0 % 07/31/2021 9:10 AM [facility] Eosinophils % 7.2(H) 0.0 - 6.0 % 07/31/2021 9:10 AM [facility] Basophils % 0.6 0.0 - 2.0 % 07/31/2021 9:10 AM [facility] Immature Granulocytes 0.3 0 - 1 % 07/31/2021 9:10 AM [facility] Neutrophil Absolute 6.48 2.01 - 7.14 x10E9/L 07/31/2021 9:10 AM [facility] Lymphocytes Absolute 1.07 1.07 - 3.94 x10E9/L 07/31/2021 9:10 AM [facility] Monocytes Absolute 0.80 0.26 - 1.07 x10E9/L 07/31/2021 9:10 AM T [facility] Eosinophils Absolute 0.65(H) 0 - 0.47 x10E9/L 07/31/2021 9:10 AM T [facility] Basophils Absolute 0.05 0 - 0.08 x10E9/L 07/31/2021 9:10 AM [facility] Immature Granulocytes Absolute 0.03 0.00 - 0.06 x10E9/L 07/31/2021 9:10 AM CDT [facility] nRBC Auto 0 /100 WBC 07/31/2021 9:10 AM CDT [facility] Blood BLOOD SPECIMEN / Unknown Venipuncture / Unknown 07/31/2021 2:50 AM CDT 07/31/2021 8:26 AM CDT us Vinicio Quintanilla MD LAB - HEMATOLOGY ORDERABLES Giselle bryan Result [facility] [address] [place], [place] [id number] * (ABNORMAL) COMPREHENSIVE METABOLIC PANEL (07/31/2021 2:50 AM CDT) Glucose 138(H) 70 - 105 mg/dL 07/31/2021 8:59 AM CDT [facility] Sodium 145 136 - 145 mmol/L 07/31/2021 8:59 AM CDT [facility] Potassium 4.6 3.5 - 5.1 mmol/L 07/31/2021 8:59 AM CDT [facility] Chloride 108(H) 98 - 107 mmol/L 07/31/2021 8:59 AM CDT [facility] CO2 23 23 - 31 mmol/L 07/31/2021 8:59 AM CDT [facility] Calcium 9.8 8.4 - 10.4 mg/dL 07/31/2021 8:59 AM CDT [facility] Anion Gap 14 8 - 18 mmol/L 07/31/2021 8:59 AM CDT [facility] BUN 33(H) 8.9 - 20.6 mg/dL 07/31/2021 8:59 AM CDT [facility] Creatinine 1.17 0.72 - 1.25 mg/dL 07/31/2021 8:59 AM CDT [facility] Alkaline Phosphatase 155(H) 40 - 150 U/L 07/31/2021 8:59 AM CDT [facility] ALT 26 0 - 61 U/L 07/31/2021 8:59 AM CDT [facility] AST 14 5 - 34 U/L 07/31/2021 8:59 AM CDT [facility] Protein Total 7.3 6.4 - 8.3 gm/dL 07/31/2021 8:59 AM CDT [facility] Albumin 3.4(L) 3.5 - 5.2 gm/dL 07/31/2021 8:59 AM CDT [facility] Bilirubin Total 0.3 0.2 - 1.2 mg/dL 07/31/2021 8:59 AM CDT [facility] eGFR by CKD-EPI 83(L) >=90 mL/min/1.7 3 m2 07/31/2021 8:59 AM CDT [facility] Blood BLOOD SPECIMEN / Unknown Venipuncture / Unknown 07/31/2021 2:50 AM CDT 07/31/2021 8:26 AM CDT Narrative [facility] - 07/31/2021 8:59 AM CDT eGFR result was calculated using the updated CKD-EPI Creatinine Equations (2020). Prior to go live 2021 the eGFR was calculated using the MDRD calculation. Please note Reference Range change. us Vinicio Quintanilla MD LAB - CHEMISTRY ORDERABLES Final Result Performing Organization Address City/State/[facility] Co de Phone Number [facility] [address] [place] [address] documented in this encounter Visit Diagnoses Not on filedocumented in this encounter Care Teams Police Lieutenant Patrol Relationship Specialty Start Date End Date Pepe Martel MD [address] [place] [id number] PCP - General 08/14/16 documented as of this encounter
--- OUTSIDE RECORDS SUMMARY | 2024-12-28 17:49 | XMS_ITS | Encounter Summary ---
Author Organization [facility] Address [address] [place] [address] Care Team Providers Care Cognos Administrator Name Role Phone Pepe Martel MD Primary Care Provider [phone] Encounter Details Date Type Department Care Team (Late st Contact Info) Description 04/28/[address] [facility] [address] [place] [address] Davon Laws MD [address] [place] [address] Social History Tobacco Use Types [...] W AUTO DIFFERENTIAL STAT 04/28/2021 3:36 AM CAR REPAIRER APPRENTICE COMPREHENSIVE METABOLIC PANEL STAT 04/28/2021 3:36 AM CAR REPAIRER APPRENTICE VANCOMYCIN LEVEL TROUGH STAT 04/28/2021 3:36 AM CAR REPAIRER APPRENTICE documented in this encounter Results * (ABNORMAL) COMPREHENSIVE METABOLIC PANEL (04/28/2021 3:36 AM CAR REPAIRER APPRENTICE) [facility] Glucose 93 70 - 105 mg/dL 04/28/2021 11:17 AM CAR REPAIRER APPRENTICE [facility] Sodium 138 136 - 145 mmol/L 04/28/2021 11:17 AM CAR REPAIRER APPRENTICE [facility] Potassium 4.9 3.5 - 5.1 mmol/L 04/28/2021 11:17 AM CAR REPAIRER APPRENTICE [facility] Chloride 104 98 - 107 mmol/L 04/28/2021 11:17 AM CAR REPAIRER APPRENTICE [facility] CO2 21(L) 23 - 31 mmol/L 04/28/2021 11:17 AM CAR REPAIRER APPRENTICE [facility] Calcium 9.5 8.4 - 10.4 mg/dL 04/28/2021 11:17 AM CAR REPAIRER APPRENTICE [facility] Anion Gap 13 8 - 18 mmol/L 04/28/2021 11:17 AM CAR REPAIRER APPRENTICE [facility] BUN 33(H) 8.9 - 20.6 mg/dL 04/28/2021 11:17 AM [facility] Creatinine 0.96 0.72 - 1.25 mg/dL 04/28/2021 11:17 AM [facility] Alkaline Phosphatase 73 40 - 150 U/L 04/28/2021 11:17 AM [facility] ALT 21 0 - 61 U/L 04/28/2021 11:17 AM [facility] AST 20 5 - 34 U/L 04/28/2021 11:17 AM [facility] Protein Total 7.4 6.4 - 8.3 gm/dL 04/28/2021 11:17 AM [facility] Albumin 3.6 3.5 - 5.2 gm/dL 04/28/2021 11:17 AM [facility] Bilirubin Total 0.3 0.2 - 1.2 mg/dL 04/28/2021 11:17 AM [facility] eGFR by MDRD >60 >60 mL/min/1.7 3m2 04/28/2021 11:17 AM [facility] eGFR by MDRD >60 >60 mL/min/1.7 3m2 04/28/2021 11:17 AM [facility] Blood BLOOD SPECIMEN / Unknown Venipuncture / Unknown 04/28/2021 3:36 AM CAR REPAIRER APPRENTICE 04/28/2021 10:25 AM [facility] us Davon Laws MD LAB - CHEMISTRY ORDERABLES Final Result Performing Organization Address City/State/[facility] Co de Phone Number [facility] [address] [place] [address] * (ABNORMAL) CBC WITH DIFFERENTIAL (04/28/2021 3:36 AM CAR REPAIRER APPRENTICE) [facility] WBC 8.1 4.4 - 10.7 x10E9/L 04/28/2021 10:34 AM [facility] WBC Corrected 04/28/2021 10:34 AM [facility] RBC 3.89 3.80 - 5.40 x10E12/L 04/28/2021 10:34 AM [facility] Hemoglobin 10.8(L) 12.0 - 17.6 gm/dL 04/28/2021 10:34 AM [facility] Hematocrit 34.8(L) 35.2 - 51.7 % 04/28/2021 10:34 AM [facility] MCV 89.5 80.7 - 98.3 fl 04/28/2021 10:34 AM [facility] MCH 27.8 26.7 - 34.0 pg 04/28/2021 10:34 AM [facility] MCHC 31.0 30.8 - 35.9 gm/dL 04/28/2021 10:34 AM [facility] Platelet Count 407 153 - 416 x10E9/L 04/28/2021 10:34 AM [facility] RDW-CV 13.8 12.1 - 14.9 % 04/28/2021 10:34 AM [facility] MPV 10.5 9.4 - 12.9 fl 04/28/2021 10:34 AM [facility] Neutrophils % 66.1 44.0 - 73.0 % 04/28/2021 10:34 AM [facility] Lymphocytes % 14.5(L) 20.0 - 43.0 % 04/28/2021 10:34 AM [facility] Monocytes % 13.6(H) 5.0 - 13.0 % 04/28/2021 10:34 AM [facility] Eosinophils % 5.0 0.0 - 6.0 % 04/28/2021 10:34 AM [facility] Basophils % 0.6 0.0 - 2.0 % 04/28/2021 10:34 AM [facility] Immature Granulocytes 0.2 0 - 1 % 04/28/2021 10:34 AM [facility] Neutrophil Absolute 5.34 2.01 - 7.14 x10E9/L 04/28/2021 10:34 AM [facility] Lymphocytes Absolute 1.17 1.07 - 3.94 x10E9/L 04/28/2021 10:34 AM [facility] Monocytes Absolute 1.10(H) 0.26 - 1.07 x10E9/L 04/28/2021 10:34 AM [facility] Eosinophils Absolute 0.40 0 - 0.47 x10E9/L 04/28/2021 10:34 AM [facility] Basophils Absolute 0.05 0 - 0.08 x10E9/L 04/28/2021 10:34 AM CAR REPAIRER APPRENTICE [facility] Immature Granulocytes Absolute 0.02 0.00 - 0.06 x10E9/L 04/28/2021 10:34 AM CAR REPAIRER APPRENTICE [facility] nRBC Auto 0 /100 WBC 04/28/2021 10:34 AM [facility] Blood BLOOD SPECIMEN / Unknown Venipuncture / Unknown 04/28/2021 3:36 AM CAR REPAIRER APPRENTICE 04/28/2021 10:25 AM CAR REPAIRER APPRENTICE Davon Laws MD LAB - HEMATOLOGY ORDERABLES Giselle l Result Performing Organization Address City/[facility]/ZIP Co de Phone Number [facility] [address] [place] [address] * (ABNORMAL) VANCOMYCIN LEVEL TROUGH (04/28/2021 3:36 AM CAR REPAIRER APPRENTICE) Vancomycin Trough 20.3(H) 10.0 - 20.0 ug/mL 04/28/2021 10:54 AM [facility] Blood BLOOD SPECIMEN / Unknown Venipuncture / Unknown 04/28/2021 3:36 AM CAR REPAIRER APPRENTICE 04/28/2021 10:22 AM CAR REPAIRER APPRENTICE us Davon Laws MD LAB - CHEMISTRY ORDERABLES Final Result Performing Organization Address [facility]/ZIP Co de Phone Number [facility] [address] [place] [address] documented in this encounter Visit Diagnoses Not on filedocumented in this encounter Care Teams Cognos Administrator Relationship Specialty Start Date End Date Pepe Martel MD [address] [place] [id number] PCP - General 08/14/16 documented as of this encounter
--- OUTSIDE RECORDS SUMMARY | 2024-12-28 17:49 | XMS_ITS | Encounter Summary ---
Author Organization [facility] Address [address] [place] [address] Care Team Providers Care Material Handling Technician Name Role Phone Pepe Martel MD Primary Care Provider [phone] Encounter Details Date Type Department Care Team (Late st Contact Info) Description 06/05/2021 Lab Requisition [facility] [address] [place] [address] Lamberto De La Cruz MD [address] [facility] [address] [place] [address] Social History Tobacco Use Types [...] W AUTO DIFFERENTIAL STAT 06/05/2021 4:39 AM POLITICAL AIDE COMPREHENSIVE METABOLIC PANEL STAT 06/05/2021 4:39 AM POLITICAL AIDE documented in this encounter Results * (ABNORMAL) CBC WITH DIFFERENTIAL (06/05/2021 4:39 AM POLITICAL AIDE) WBC 11.1(H) 4.4 - 10.7 x10E9/L 06/05/2021 11:01 AM POLITICAL AIDE [facility] WBC Corrected 06/05/2021 11:01 AM POLITICAL AIDE [facility] RBC 4.20 3.80 - 5.40 x10E12/L 06/05/2021 11:01 AM POLITICAL AIDE [facility] Hemoglobin 11.2(L) 12.0 - 17.6 gm/dL 06/05/2021 11:01 AM POLITICAL AIDE [facility] Hematocrit 35.8 35.2 - 51.7 % 06/05/2021 11:01 AM POLITICAL AIDE [facility] MCV 85.2 80.7 - 98.3 fl 06/05/2021 11:01 AM POLITICAL AIDE [facility] MCH 26.7 26.7 - 34.0 pg 06/05/2021 11:01 AM POLITICAL AIDE [facility] MCHC 31.3 30.8 - 35.9 gm/dL 06/05/2021 11:01 AM [facility] Platelet Count 498(H) 153 - 416 x10E9/L 06/05/2021 11:01 AM [facility] RDW-CV 12.0(L) 12.1 - 14.9 % 06/05/2021 11:01 AM [facility] MPV 9.2(L) 9.4 - 12.9 fl 06/05/2021 11:01 AM [facility] Neutrophils % 74.6(H) 44.0 - 73.0 % 06/05/2021 11:01 AM [facility] Lymphocytes % 13.4(L) 20.0 - 43.0 % 06/05/2021 11:01 AM [facility] Monocytes % 7.9 5.0 - 13.0 % 06/05/2021 11:01 AM [facility] Eosinophils % 3.3 0.0 - 6.0 % 06/05/2021 11:01 AM [facility] Basophils % 0.4 0.0 - 2.0 % 06/05/2021 11:01 AM [facility] Immature Granulocytes 0.4 0 - 1 % 06/05/2021 11:01 AM [facility] Neutrophil Absolute 8.28(H) 2.01 - 7.14 x10E9/L 06/05/2021 11:01 AM [facility] Lymphocytes Absolute 1.49 1.07 - 3.94 x10E9/L 06/05/2021 11:01 AM [facility] Monocytes Absolute 0.88 0.26 - 1.07 x10E9/L 06/05/2021 11:01 AM [facility] Eosinophils Absolute 0.37 0 - 0.47 x10E9/L 06/05/2021 11:01 AM [facility] Basophils Absolute 0.04 0 - 0.08 x10E9/L 06/05/2021 11:01 AM [facility] Immature Granulocytes Absolute 0.04 0.00 - 0.06 x10E9/L 06/05/2021 11:01 AM [facility] nRBC Auto 0 /100 WBC 06/05/2021 11:01 AM [facility] Blood BLOOD SPECIMEN / Unknown Venipuncture / Unknown 06/05/2021 4:39 AM POLITICAL AIDE 06/05/2021 10:29 AM [facility] [[email or web address] us Lamberto De La Cruz MD LAB - HEMATOLOGY ORDERABLES Giselle bryan Result [facility] [address] [place] [address] * (ABNORMAL) COMPREHENSIVE METABOLIC PANEL (06/05/2021 4:39 AM [facility] [[email or web address] Signature Glucose 124(H) 70 - 105 mg/dL 06/05/2021 11:27 AM [facility] Sodium 134(L) 136 - 145 mmol/L 06/05/2021 11:27 AM [facility] Potassium 4.8 3.5 - 5.1 mmol/L 06/05/2021 11:27 AM [facility] Chloride 97(L) 98 - 107 mmol/L 06/05/2021 11:27 AM [facility] CO2 27 23 - 31 mmol/L 06/05/2021 11:27 AM [facility] Calcium 9.6 8.4 - 10.4 mg/dL 06/05/2021 11:27 AM [facility] Anion Gap 10 8 - 18 mmol/L 06/05/2021 11:27 AM [facility] BUN 32(H) 8.9 - 20.6 mg/dL 06/05/2021 11:27 AM [facility] Creatinine 0.83 0.72 - 1.25 mg/dL 06/05/2021 11:27 AM [facility] Alkaline Phosphatase 166(H) 40 - 150 U/L 06/05/2021 11:27 AM [facility] ALT 34 0 - 61 U/L 06/05/2021 11:27 AM [facility] AST 17 5 - 34 U/L 06/05/2021 11:27 AM [facility] Protein Total 8.0 6.4 - 8.3 gm/dL 06/05/2021 11:27 AM [facility] Albumin 3.6 3.5 - 5.2 gm/dL 06/05/2021 11:27 AM [facility] Bilirubin Total <0.1(L) 0.2 - 1.2 mg/dL 06/05/2021 11:27 AM POLITICAL AIDE [facility] eGFR by MDRD >60 >60 mL/min/1.7 3m2 06/05/2021 11:27 AM POLITICAL AIDE [facility] eGFR by MDRD >60 >60 mL/min/1.7 3m2 06/05/2021 11:27 AM POLITICAL AIDE [facility] Blood BLOOD SPECIMEN / Unknown Venipuncture / Unknown 06/05/2021 4:39 AM POLITICAL AIDE 06/05/2021 10:29 AM POLITICAL AIDE us Lamberto De La Cruz MD LAB - CHEMISTRY ORDERABLES Final Result Performing Organization Address City/State/[facility] Co de Phone Number [facility] [address] [place] [address] documented in this encounter Visit Diagnoses Not on filedocumented in this encounter Care Teams Material Handling Technician Relationship Specialty Start Date End Date Pepe Martel MD [address] [facility] [address] [place] [address] PCP - General 08/14/16 documented as of this encounter
--- OUTSIDE RECORDS SUMMARY | 2024-12-28 17:49 | XMS_ITS | Encounter Summary ---
Author Organization [facility] Address [address] [place] [address] Care Team Providers Care Chlorination Operator Name Role Phone Pepe Martel MD Primary Care Provider [phone] Encounter Details Date Type Department Care Team (Late st Contact Info) Description 07/10/2021 Lab Requisition [facility] [address] [place] [address] [place] [address] [place] [address] Social History Tobacco Use Types Packs/Day Years [...] W AUTO DIFFERENTIAL STAT 07/10/2021 2:43 AM MOLD ENGRAVER COMPREHENSIVE METABOLIC PANEL STAT 07/10/2021 2:43 AM MOLD ENGRAVER documented in this encounter Results * (ABNORMAL) COMPREHENSIVE METABOLIC PANEL (07/10/2021 2:43 AM MOLD ENGRAVER) Glucose 98 70 - 105 mg/dL 07/10/2021 11:[address] [facility] Sodium 140 136 - 145 mmol/L 07/10/2021 11:[address] [facility] Potassium 5.2(H) 3.5 - 5.1 mmol/L 07/10/2021 11:[address] [facility] Chloride 102 98 - 107 mmol/L 07/10/2021 11:[address] [facility] CO2 24 23 - 31 mmol/L 07/10/2021 11:[address] [facility] Calcium 9.9 8.4 - 10.4 mg/dL 07/10/2021 11:[address] [facility] Anion Gap 14 8 - 18 mmol/L 07/10/2021 11:[address] [facility] BUN 29(H) 8.9 - 20.6 mg/dL 07/10/2021 11:[address] [facility] Creatinine 0.85 0.72 - 1.25 mg/dL 07/10/2021 11:[address] [facility] Alkaline Phosphatase 135 40 - 150 U/L 07/10/2021 11:[address] [facility] ALT 32 0 - 61 U/L 07/10/2021 11:[address] [facility] AST 17 5 - 34 U/L 07/10/2021 11:[address] [facility] Protein Total 7.7 6.4 - 8.3 gm/dL 07/10/2021 11:[address] [facility] Albumin 3.8 3.5 - 5.2 gm/dL 07/10/2021 11:[address] [facility] Bilirubin Total 0.3 0.2 - 1.2 mg/dL 07/10/2021 11:[address] [facility] eGFR by MDRD >60 >60 mL/min/1.7 3m2 07/10/2021 11:[address] [facility] eGFR by MDRD >60 >60 mL/min/1.7 3m2 07/10/2021 11:[address] [facility] Blood BLOOD SPECIMEN / Unknown Venipuncture / Unknown 07/10/2021 2:43 AM MOLD ENGRAVER 07/10/2021 10:14 AM [facility] us Vinicio Quintanilla MD LAB - CHEMISTRY ORDERABLES Final Result Performing Organization Address [facility]/State/[facility] Co de Phone Number [facility] [address] [place] [address] * (ABNORMAL) CBC WITH DIFFERENTIAL (07/10/2021 2:43 AM [facility]) [facility] WBC 10.4 4.4 - 10.7 x10E9/L 07/10/2021 10:[address] [facility] WBC Corrected 07/10/2021 10:[address] [facility] RBC 4.35 3.80 - 5.40 x10E12/L 07/10/2021 10:[address] [facility] Hemoglobin 11.4(L) 12.0 - 17.6 gm/dL 07/10/2021 10:[address] [facility] Hematocrit 36.3 35.2 - 51.7 % 07/10/2021 10:[address] [facility] MCV 83.4 80.7 - 98.3 fl 07/10/2021 10:[address] [facility] MCH 26.2(L) 26.7 - 34.0 pg 07/10/2021 10:[address] [facility] MCHC 31.4 30.8 - 35.9 gm/dL 07/10/2021 10:[address] [facility] Platelet Count 421(H) 153 - 416 x10E9/L 07/10/2021 10:[address] [facility] RDW-CV 13.2 12.1 - 14.9 % 07/10/2021 10:[address] [facility] MPV 10.5 9.4 - 12.9 fl 07/10/2021 10:[address] [facility] Neutrophils % 66.2 44.0 - 73.0 % 07/10/2021 10:[address] [facility] Lymphocytes % 19.7(L) 20.0 - 43.0 % 07/10/2021 10:[address] [facility] Monocytes % 9.5 5.0 - 13.0 % 07/10/2021 10:[address] [facility] Eosinophils % 3.9 0.0 - 6.0 % 07/10/2021 10:[address] [facility] Basophils % 0.3 0.0 - 2.0 % 07/10/2021 10:[address] [facility] Immature Granulocytes 0.4 0 - 1 % 07/10/2021 10:[address] [facility] Neutrophil Absolute 6.89 2.01 - 7.14 x10E9/L 07/10/2021 10:[address] [facility] Lymphocytes Absolute 2.05 1.07 - 3.94 x10E9/L 07/10/2021 10:[address] [facility] Monocytes Absolute 0.99 0.26 - 1.07 x10E9/L 07/10/2021 10:[address] [facility] Eosinophils Absolute 0.41 0 - 0.47 x10E9/L 07/10/2021 10:[address] [facility] Basophils Absolute 0.03 0 - 0.08 x10E9/L 07/10/2021 10:[address] [facility] Immature Granulocytes Absolute 0.04 0.00 - 0.06 x10E9/L 07/10/2021 10:41 AM MOLD ENGRAVER [facility] nRBC Auto 0 /100 WBC 07/10/2021 10:41 AM MOLD ENGRAVER [facility] Blood BLOOD SPECIMEN / Unknown Venipuncture / Unknown 07/10/2021 2:43 AM MOLD ENGRAVER 07/10/2021 10:14 AM MOLD ENGRAVER us Vinicio Quintanilla MD LAB - HEMATOLOGY ORDERABLES Giselle adams Result Performing Organization Address City/State/[facility] Co de Phone Number [facility] [address] [place] [address] documented in this encounter Visit Diagnoses Not on filedocumented in this encounter Care Teams Chlorination Operator Relationship Specialty Start Date End Date Pepe Martel MD [address] [place] [id number] PCP - General 08/14/16 documented as of this encounter
--- OUTSIDE RECORDS SUMMARY | 2024-12-28 17:49 | XMS_ITS | Encounter Summary ---
Author Organization [facility] Address [address] [place] [address] Care Team Providers Care Die Maker Apprentice Name Role Phone Pepe Martel MD Primary Care Provider [phone] Encounter Details Date Type Department Care Team (Late st Contact Info) Description 2021 Lab Requisition [facility] [address] [place] [address] Alverto Virgen MD [address] [place] [address] of [place] [address] Social History Tobacco Use Types Packs/Day Years [...] - 105 mg/dL 2021 10:29 AM CDT [facility] Sodium 141 136 - 145 mmol/L 2021 10:29 AM CDT [facility] Potassium 4.8 3.5 - 5.1 mmol/L 2021 10:29 AM CDT [facility] Chloride 104 98 - 107 mmol/L 2021 10:29 AM CDT [facility] CO2 22(L) 23 - 31 mmol/L 2021 10:29 AM CDT [facility] Calcium 9.6 8.4 - 10.4 mg/dL 2021 10:29 AM CDT [facility] Anion Gap 15 8 - 18 mmol/L 2021 10:29 AM CDT [facility] BUN 28(H) 8.9 - 20.6 mg/dL 2021 10:29 AM CDT [facility] Creatinine 1.02 0.72 - 1.25 mg/dL 2021 10:29 AM CDT [facility] Alkaline Phosphatase 134 40 - 150 U/L 2021 10:29 AM CDT [facility] ALT 17 0 - 61 U/L 2021 10:29 AM CDT [facility] AST 12 5 - 34 U/L 2021 10:29 AM CDT [facility] Protein Total 7.7 6.4 - 8.3 gm/dL 2021 10:29 AM CDT [facility] Albumin 3.7 3.5 - 5.2 gm/dL 2021 10:29 AM CDT [facility] Bilirubin Total 0.3 0.2 - 1.2 mg/dL 2021 10:29 AM CDT [facility] eGFR by CKD-EPI >90 >=90 mL/min/1.7 3 m2 2021 10:29 AM CDT [facility] Blood BLOOD SPECIMEN / Unknown Venipuncture / Unknown 2021 4:04 AM CDT 2021 8:49 AM CDT us Alverto Virgen MD LAB - CHEMISTRY ORDERABLE S Final Result Performing Organization Address City/State/[facility] Co de Phone Number [facility] [address] [place] [address] documented in this encounter Visit Diagnoses Not on filedocumented in this encounter Care Teams Die Maker Apprentice Relationship Specialty Start Date End Date Pepe Martel MD [address] [place] [id number] PCP - General 08/14/16 documented as of this encounter
--- OUTSIDE RECORDS SUMMARY | 2024-12-28 17:49 | XMS_ITS | Encounter Summary ---
Author Organization [facility] Address [address] [place] [address] Care Team Providers Care Will Call Clerk Name Role Phone Pepe Martel MD Primary Care Provider [phone] Encounter Details Date Type Department Care Team (Late st Contact Info) Description 07/03/2021 Lab Requisition [facility] [address] [place] [address] [place] [address] [place] [address] Social History Tobacco Use Types Packs/Day Years [...] SLIDE SCAN HEMATOLOGY Routine 07/03/2021 4:24 AM SLAG WHEELER CBC W AUTO DIFFERENTIAL STAT 07/03/2021 4:24 AM SLAG WHEELER COMPREHENSIVE METABOLIC PANEL STAT 07/03/2021 4:24 AM SLAG WHEELER documented in this encounter Results * (ABNORMAL) SLIDE SCAN HEMATOLOGY (07/03/2021 4:24 AM SLAG WHEELER) Clumped Platelets 1+(A) None 07/03/2021 10:54 AM SLAG WHEELER [facility] Blood BLOOD SPECIMEN / Unknown Venipuncture / Unknown 07/03/2021 4:24 AM SLAG WHEELER 07/03/2021 10:11 AM SLAG WHEELER us Vinicio Quintanilla MD LAB - HEMATOLOGY ORDERABLES Giselle adams Result [facility] [address] [place] [address] * (ABNORMAL) CBC WITH DIFFERENTIAL (07/03/2021 4:24 AM SLAG WHEELER) WBC 10.6 4.4 - 10.7 x10E9/L 07/03/2021 10:[address] [facility] WBC Corrected 07/03/2021 10:[address] [facility] RBC 4.32 3.80 - 5.40 x10E12/L 07/03/2021 10:[address] [facility] Hemoglobin 11.1(L) 12.0 - 17.6 gm/dL 07/03/2021 10:[address] [facility] Hematocrit 36.5 35.2 - 51.7 % 07/03/2021 10:[address] [facility] MCV 84.5 80.7 - 98.3 fl 07/03/2021 10:[address] [facility] MCH 25.7(L) 26.7 - 34.0 pg 07/03/2021 10:[address] [facility] MCHC 30.4(L) 30.8 - 35.9 gm/dL 07/03/2021 10:[address] [facility] Platelet Count 303 153 - 416 x10E9/L 07/03/2021 10:[address] [facility] RDW-CV 13.1 12.1 - 14.9 % 07/03/2021 10:[address] [facility] MPV 10.3 9.4 - 12.9 fl 07/03/2021 10:[address] [facility] Neutrophils % 68.5 44.0 - 73.0 % 07/03/2021 10:[address] [facility] Lymphocytes % 18.9(L) 20.0 - 43.0 % 07/03/2021 10:[address] [facility] Monocytes % 8.2 5.0 - 13.0 % 07/03/2021 10:[address] [facility] Eosinophils % 3.6 0.0 - 6.0 % 07/03/2021 10:[address] [facility] Basophils % 0.4 0.0 - 2.0 % 07/03/2021 10:[address] [facility] Immature Granulocytes 0.4 0 - 1 % 07/03/2021 10:[address] [facility] Neutrophil Absolute 7.23(H) 2.01 - 7.14 x10E9/L 07/03/2021 10:[address] [facility] Lymphocytes Absolute 1.99 1.07 - 3.94 x10E9/L 07/03/2021 10:[address] [facility] Monocytes Absolute 0.87 0.26 - 1.07 x10E9/L 07/03/2021 10:[address] [facility] Eosinophils Absolute 0.38 0 - 0.47 x10E9/L 07/03/2021 10:[address] [facility] Basophils Absolute 0.04 0 - 0.08 x10E9/L 07/03/2021 10:[address] [facility] Immature Granulocytes Absolute 0.04 0.00 - 0.06 x10E9/L 07/03/2021 10:[address] [facility] nRBC Auto 0 /100 WBC 07/03/2021 10:[address] [facility] Blood BLOOD SPECIMEN / Unknown Venipuncture / Unknown 07/03/2021 4:24 AM SLAG WHEELER 07/03/2021 10:11 AM [facility] us Vinicio Quintanilla MD LAB - HEMATOLOGY ORDERABLES Giselle admas Result [facility] [address] [place] [address] * (ABNORMAL) COMPREHENSIVE METABOLIC PANEL (07/03/2021 4:24 AM [facility]) Glucose 119(H) 70 - 105 mg/dL 07/03/2021 11:[address] [facility] Sodium 142 136 - 145 mmol/L 07/03/2021 11:[address] [facility] Potassium 4.2 3.5 - 5.1 mmol/L 07/03/2021 11:[address] [facility] Chloride 103 98 - 107 mmol/L 07/03/2021 11:[address] [facility] CO2 26 23 - 31 mmol/L 07/03/2021 11:[address] [facility] Calcium 9.7 8.4 - 10.4 mg/dL 07/03/2021 11:[address] [facility] Anion Gap 13 8 - 18 mmol/L 07/03/2021 11:[address] [facility] BUN 38(H) 8.9 - 20.6 mg/dL 07/03/2021 11:[address] [facility] Creatinine 1.01 0.72 - 1.25 mg/dL 07/03/2021 11:02 AM SLAG WHEELER [facility] Alkaline Phosphatase 143 40 - 150 U/L 07/03/2021 11:02 AM SLAG WHEELER [facility] ALT 36 0 - 61 U/L 07/03/2021 11:02 AM SLAG WHEELER [facility] AST 16 5 - 34 U/L 07/03/2021 11:02 AM SLAG WHEELER [facility] Protein Total 7.6 6.4 - 8.3 gm/dL 07/03/2021 11:02 AM SLAG WHEELER [facility] Albumin 3.7 3.5 - 5.2 gm/dL 07/03/2021 11:[address] [facility] Bilirubin Total 0.1(L) 0.2 - 1.2 mg/dL 07/03/2021 11:02 AM SLAG WHEELER [facility] eGFR by MDRD >60 >60 mL/min/1.7 3m2 07/03/2021 11:02 AM SLAG WHEELER [facility] eGFR by MDRD >60 >60 mL/min/1.7 3m2 07/03/2021 11:[address] [facility] Blood BLOOD SPECIMEN / Unknown Venipuncture / Unknown 07/03/2021 4:24 AM SLAG WHEELER 07/03/2021 10:11 AM SLAG WHEELER us Vinicio Quintanilla MD LAB - CHEMISTRY ORDERABLES Final Result [facility] [address] [place], [place] [id number] documented in this encounter Visit Diagnoses Not on filedocumented in this encounter Care Teams Will Call Clerk Relationship Specialty Start Date End Date Pepe Martel MD [address] [facility] [address] [place] [address] PCP - General 08/14/16 documented as of this encounter
--- OUTSIDE RECORDS SUMMARY | 2024-12-28 17:49 | XMS_ITS | Encounter Summary ---
Author Organization [facility] Address [address] [place] [address] Care Team Providers Care Country Director Name Role Phone Pepe Martel MD Primary Care Provider [phone] Encounter Details Date Type Department Care Team (Late st Contact Info) Description 05/29/2021 Lab Requisition [facility] [address] [place] [address] Lamberto De La Cruz MD [address] [facility] [address] [place] [address] Social History Tobacco Use Types [...] W AUTO DIFFERENTIAL STAT 05/29/2021 3:10 AM DINING CAR [employer] COMPREHENSIVE METABOLIC PANEL STAT 05/29/2021 3:10 AM DINING CAR [employer] documented in this encounter Results * (ABNORMAL) CBC WITH DIFFERENTIAL (05/29/2021 3:10 AM DINING CAR [employer]OP) WBC 9.0 4.4 - 10.7 x10E9/L 05/29/2021 11:42 AM DINING CAR HOP [facility] WBC Corrected 05/29/2021 11:42 AM D[employer]ING [employer] [facility] RBC 3.78(L) 3.80 - 5.40 x10E12/L 05/29/2021 11:42 AM D[employer]ING [employer] [facility] Hemoglobin 10.4(L) 12.0 - 17.6 gm/dL 05/29/2021 11:42 AM D[employer]ING [employer] [facility] Hematocrit 33.2(L) 35.2 - 51.7 % 05/29/2021 11:42 AM D[employer]ING [employer] [facility] MCV 87.8 80.7 - 98.3 fl 05/29/2021 11:42 AM D[employer]ING [employer] [facility] MCH 27.5 26.7 - 34.0 pg 05/29/2021 11:42 AM D[employer]ING [employer] [facility] MCHC 31.3 30.8 - 35.9 gm/dL 05/29/2021 11:[address] [facility] Platelet Count 507(H) 153 - 416 x10E9/L 05/29/2021 11:[address] [facility] RDW-CV 12.0(L) 12.1 - 14.9 % 05/29/2021 11:[address] [facility] MPV 9.8 9.4 - 12.9 fl 05/29/2021 11:[address] [facility] Neutrophils % 67.3 44.0 - 73.0 % 05/29/2021 11:[address] [facility] Lymphocytes % 15.0(L) 20.0 - 43.0 % 05/29/2021 11:[address] [facility] Monocytes % 12.6 5.0 - 13.0 % 05/29/2021 11:[address] [facility] Eosinophils % 4.4 0.0 - 6.0 % 05/29/2021 11:[address] [facility] Basophils % 0.4 0.0 - 2.0 % 05/29/2021 11:[address] [facility] Immature Granulocytes 0.3 0 - 1 % 05/29/2021 11:[address] [facility] Neutrophil Absolute 6.07 2.01 - 7.14 x10E9/L 05/29/2021 11:[address] [facility] Lymphocytes Absolute 1.35 1.07 - 3.94 x10E9/L 05/29/2021 11:[address] [facility] Monocytes Absolute 1.14(H) 0.26 - 1.07 x10E9/L 05/29/2021 11:[address] [facility] Eosinophils Absolute 0.40 0 - 0.47 x10E9/L 05/29/2021 11:[address] [facility] Basophils Absolute 0.04 0 - 0.08 x10E9/L 05/29/2021 11:[address] [facility] Immature Granulocytes Absolute 0.03 0.00 - 0.06 x10E9/L 05/29/2021 11:[address] [facility] nRBC Auto 0 /100 WBC 05/29/2021 11:[address] [facility] Blood BLOOD SPECIMEN / Unknown Venipuncture / Unknown 05/29/2021 3:10 AM [employer]ING [employer] 05/29/2021 11:13 AM [facility] us Lamberto De La Cruz MD LAB - HEMATOLOGY ORDERABLES Giselle bryan Result [facility] [address] [place] [address] * (ABNORMAL) COMPREHENSIVE METABOLIC PANEL (05/29/2021 3:10 AM [facility]) [facility] Glucose 99 70 - 105 mg/dL 05/29/2021 12:[address] [facility] Sodium 135(L) 136 - 145 mmol/L 05/29/2021 12:[address] [facility] Potassium 5.4(H) 3.5 - 5.1 mmol/L 05/29/2021 12:[address] [facility] Chloride 99 98 - 107 mmol/L 05/29/2021 12:[address] [facility] CO2 24 23 - 31 mmol/L 05/29/2021 12:[address] [facility] Calcium 9.8 8.4 - 10.4 mg/dL 05/29/2021 12:[address] [facility] Anion Gap 12 8 - 18 mmol/L 05/29/2021 12:[address] [facility] BUN 27(H) 8.9 - 20.6 mg/dL 05/29/2021 12:[address] [facility] Creatinine 0.77 0.72 - 1.25 mg/dL 05/29/2021 12:[address] [facility] Alkaline Phosphatase 153(H) 40 - 150 U/L 05/29/2021 12:[address] [facility] ALT 44 0 - 61 U/L 05/29/2021 12:[address] [facility] AST 27 5 - 34 U/L 05/29/2021 12:[address] [facility] Protein Total 7.5 6.4 - 8.3 gm/dL 05/29/2021 12:[address] [facility] Albumin 3.4(L) 3.5 - 5.2 gm/dL 05/29/2021 12:[address] [facility] Bilirubin Total 0.3 0.2 - 1.2 mg/dL 05/29/2021 12:05 PM [facility] [employer] [facility] eGFR by MDRD >60 >60 mL/min/1.7 3m2 05/29/2021 12:05 PM [facility] [facility] eGFR by MDRD >60 >60 mL/min/1.7 3m2 05/29/2021 12:05 PM [facility] [employer] Blood BLOOD SPECIMEN / Unknown Venipuncture / Unknown 05/29/2021 3:10 AM [employer] 05/29/2021 11:13 AM [facility] Lamberto De La Cruz MD LAB - CHEMISTRY ORDERABLES Final Result [facility] [address] [place], [place] [id number] documented in this encounter Visit Diagnoses Not on filedocumented in this encounter Care Teams Country Director Relationship Specialty Start Date End Date Pepe Martel MD [address] [place] [address] [address] [place] [address] PCP - General 08/14/16 documented as of this encounter
--- OUTSIDE RECORDS SUMMARY | 2024-12-28 17:49 | XMS_ITS | Encounter Summary ---
Author Organization [facility] Address [address] [place] [address] Care Team Providers Care Shift Engineer Name Role Phone Pepe Martel MD Primary Care Provider [phone] Encounter Details Date Type Department Care Team (Late st Contact Info) Description 04/30/2021 Lab Requisition [facility] [address] [place] [address] [place] [address] [place] [address] Social History Tobacco Use Types Packs/Day Years [...] MICROSCOPIC NO CULTURE STAT 04/30/2021 2:30 AM FRONT END UI DEVELOPER URINE MICROSCOPIC ONLY STAT 2:30 AM FRONT END UI DEVELOPER SLIDE SCAN HEMATOLOGY Routine 04/30/2021 2:30 AM FRONT END UI DEVELOPER CBC W AUTO DIFFERENTIAL STAT 04/30/2021 2:30 AM FRONT END UI DEVELOPER COMPREHENSIVE METABOLIC PANEL STAT 04/30/2021 2:30 AM FRONT END UI DEVELOPER documented in this encounter Results * (ABNORMAL) SLIDE SCAN HEMATOLOGY (04/30/2021 2:30 AM FRONT END UI DEVELOPER) WBC Morph Normal 04/30/2021 10:11 AM FRONT END UI DEVELOPER [facility] RBC Morphology Normal 04/30/2021 10:11 AM FRONT END UI DEVELOPER [facility] Platelet Estimation Normal Normal, Adequate platelets 04/30/2021 10:11 AM FRONT END UI DEVELOPER [facility] Clumped Platelets 1+(A) None 04/30/2021 10:11 AM FRONT END UI DEVELOPER [facility] Blood BLOOD SPECIMEN / Unknown Venipuncture / Unknown 04/30/2021 2:30 AM FRONT END UI DEVELOPER 04/30/2021 8:33 AM FRONT END UI DEVELOPER us Vinicio Quintanilla MD LAB - HEMATOLOGY ORDERABLES Giselle l Result Performing Organization Address [facility]/ZIP Co de Phone Number [facility] [address] [place] [phone] * (ABNORMAL) URINE MICROSCOPIC ONLY (04/30/2021 2:30 AM FRONT END UI DEVELOPER) RBC UA 51-100(A) None Seen, 0-2, 3-5 # /hpf 04/30/2021 9:49 AM FRONT END UI DEVELOPER [facility] WBC UA 11-20(A) None Seen, 0-5 # /hpf 04/30/2021 9:49 AM FRONT END UI DEVELOPER [facility] Bacteria UA Trace(A) None Seen 04/30/2021 9:49 AM [facility] Squamous Epithelial Cells 0-2 None Seen, 0-2, 3-5 /hpf 04/30/2021 9:49 AM FRONT END UI DEVELOPER [facility] Mucus UA 1+ /LPF 04/30/2021 9:49 AM [facility] Urine URINE SPECIMEN OBTAINED BY CLEAN CATCH PROCEDURE / Unknown Collection / Unknown 04/30/2021 2:30 AM FRONT END UI DEVELOPER 04/30/2021 8:33 AM FRONT END UI DEVELOPER Narrative [facility] - 04/30/2021 9:49 AM FRONT END UI DEVELOPER us Vinicio Quintanilla MD LAB - URINALYSIS ORDERABLES Giselle l Result Performing Organization Address [facility] Co de Phone Number [facility] [address] [place] [phone] * (ABNORMAL) COMPREHENSIVE METABOLIC PANEL (04/30/2021 2:30 AM FRONT END UI DEVELOPER) Glucose 102 70 - 105 mg/dL 04/30/2021 9:58 AM FRONT END UI DEVELOPER [facility] Sodium 140 136 - 145 mmol/L 04/30/2021 9:58 AM FRONT END UI DEVELOPER [facility] Potassium 4.9 3.5 - 5.1 mmol/L 04/30/2021 9:58 AM [facility] Chloride 105 98 - 107 mmol/L 04/30/2021 9:58 AM [facility] CO2 22(L) 23 - 31 mmol/L 04/30/2021 9:58 AM [facility] Calcium 9.7 8.4 - 10.4 mg/dL 04/30/2021 9:58 AM [facility] Anion Gap 13 8 - 18 mmol/L 04/30/2021 9:58 AM [facility] BUN 32(H) 8.9 - 20.6 mg/dL 04/30/2021 9:58 AM [facility] Creatinine 0.91 0.72 - 1.25 mg/dL 04/30/2021 9:58 AM [facility] Alkaline Phosphatase 76 40 - 150 U/L 04/30/2021 9:58 AM [facility] ALT 19 0 - 61 U/L 04/30/2021 9:58 AM [facility] AST 18 5 - 34 U/L 04/30/2021 9:58 AM [facility] Protein Total 7.4 6.4 - 8.3 gm/dL 04/30/2021 9:58 AM [facility] Albumin 3.6 3.5 - 5.2 gm/dL 04/30/2021 9:58 AM [facility] Bilirubin Total 0.3 0.2 - 1.2 mg/dL 04/30/2021 9:58 AM [facility] eGFR by MDRD >60 >60 mL/min/1.7 3m2 04/30/2021 9:58 AM [facility] eGFR by MDRD >60 >60 mL/min/1.7 3m2 04/30/2021 9:58 AM [facility] Blood BLOOD SPECIMEN / Unknown Venipuncture / Unknown 04/30/2021 2:30 AM FRONT END UI DEVELOPER 04/30/2021 8:33 AM [facility] us Vinicio Quintanilla MD LAB - CHEMISTRY ORDERABLES Final Result [facility] [address] [place] [address] * (ABNORMAL) CBC WITH DIFFERENTIAL (04/30/2021 2:30 AM FRONT END UI DEVELOPER) [facility] Signature WBC 8.2 4.4 - 10.7 x10E9/L 04/30/2021 9:55 AM [facility] WBC Corrected 04/30/2021 9:55 AM [facility] RBC 3.82 3.80 - 5.40 x10E12/L 04/30/2021 9:55 AM [facility] Hemoglobin 10.8(L) 12.0 - 17.6 gm/dL 04/30/2021 9:55 AM [facility] Hematocrit 34.5(L) 35.2 - 51.7 % 04/30/2021 9:55 AM [facility] MCV 90.3 80.7 - 98.3 fl 04/30/2021 9:55 AM [facility] MCH 28.3 26.7 - 34.0 pg 04/30/2021 9:55 AM [facility] MCHC 31.3 30.8 - 35.9 gm/dL 04/30/2021 9:55 AM [facility] Platelet Count 376 153 - 416 x10E9/L 04/30/2021 9:55 AM [facility] RDW-CV 13.8 12.1 - 14.9 % 04/30/2021 9:55 AM [facility] MPV 10.7 9.4 - 12.9 fl 04/30/2021 9:55 AM [facility] Neutrophils % 67.9 44.0 - 73.0 % 04/30/2021 9:55 AM [facility] Lymphocytes % 14.8(L) 20.0 - 43.0 % 04/30/2021 9:55 AM [facility] Monocytes % 11.2 5.0 - 13.0 % 04/30/2021 9:55 AM [facility] Eosinophils % 5.0 0.0 - 6.0 % 04/30/2021 9:55 AM [facility] Basophils % 0.7 0.0 - 2.0 % 04/30/2021 9:55 AM [facility] Immature Granulocytes 0.4 0 - 1 % 04/30/2021 9:55 AM [facility] Neutrophil Absolute 5.53 2.01 - 7.14 x10E9/L 04/30/2021 9:55 AM [facility] Lymphocytes Absolute 1.21 1.07 - 3.94 x10E9/L 04/30/2021 9:55 AM [facility] Monocytes Absolute 0.91 0.26 - 1.07 x10E9/L 04/30/2021 9:55 AM [facility] Eosinophils Absolute 0.41 0 - 0.47 x10E9/L 04/30/2021 9:55 AM [facility] Basophils Absolute 0.06 0 - 0.08 x10E9/L 04/30/2021 9:55 AM [facility] Immature Granulocytes Absolute 0.03 0.00 - 0.06 x10E9/L 04/30/2021 9:55 AM [facility] nRBC Auto 0 /100 WBC 04/30/2021 9:55 AM [facility] Blood BLOOD SPECIMEN / Unknown Venipuncture / Unknown 04/30/2021 2:30 AM FRONT END UI DEVELOPER 04/30/2021 8:33 AM FRONT END UI DEVELOPER us Vinicio Quintanilla MD LAB - HEMATOLOGY ORDERABLES Giselle bryan Result Performing Organization Address City/State/[facility] Co de Phone Number [facility] [address] [place] [address] * (ABNORMAL) URINALYSIS REFLEX TO MICROSCOPIC NO CULTURE (04/30/2021 2:30 AM FRONT END UI DEVELOPER) Color UA Yellow Straw, Yellow 04/30/2021 9:55 AM [facility] Clarity UA Slt Cloudy(A) Clear 04/30/2021 9:55 AM [facility] Glucose UA Negative Negative 04/30/2021 9:55 AM [facility] Bilirubin UA Negative Negative 04/30/2021 9:55 AM [facility] Ketone UA Negative Negative 04/30/2021 9:55 AM [facility] Specific [place] UA 1.024 1.005 - 1.030 04/30/2021 9:55 AM [facility] Blood UA 2+(A) Negative 04/30/2021 9:55 AM [facility] pH UA 6.0 5.0 - 8.0 pH 04/30/2021 9:55 AM [facility] Protein UA 2+(A) Negative 04/30/2021 9:55 AM [facility] Urobilinogen UA Negative Negative mg/dL 04/30/2021 9:55 AM FRONT END UI DEVELOPER [facility] Nitrite UA Negative Negative 04/30/2021 9:55 AM FRONT END UI DEVELOPER [facility] Leukocyte Esterase UA Trace(A) Negative 04/30/2021 9:55 AM FRONT END UI DEVELOPER [facility] Urine Microscopy Urine microscopy to follow 04/30/2021 9:55 AM FRONT END UI DEVELOPER [facility] Urine URINE SPECIMEN OBTAINED BY CLEAN CATCH PROCEDURE / Unknown Collection / Unknown 04/30/2021 2:30 AM FRONT END UI DEVELOPER 04/30/2021 8:33 AM FRONT END UI DEVELOPER Narrative [facility] - 04/30/2021 9:55 AM FRONT END UI DEVELOPER Ascorbic Acid can cause false negative urine strip tests for blood, glucose, nitrite, and bilirubin. us Vinicio Quintanilla MD LAB - URINALYSIS ORDERABLES Giselle adams Result Performing Organization Address City/State/[facility] Co de Phone Number [facility] [address] [place] [address] documented in this encounter Visit Diagnoses Not on filedocumented in this encounter Care Teams Shift Engineer Relationship Specialty Start Date End Date Pepe Martel MD [address] [place] [address] [address] [place] [address] PCP - General 08/14/16 documented as of this encounter
--- OUTSIDE RECORDS SUMMARY | 2024-12-28 17:49 | XMS_ITS | Encounter Summary ---
Author Organization [facility] Address [address] [place] [address] Care Team Providers Care Pull Up Hand Name Role Phone Pepe Martel MD Primary Care Provider [phone] Encounter Details Date Type Department Care Team (Late st Contact Info) Description 04/25/2021 Lab Requisition [facility] [address] [place] [address] Davon Laws MD [address] [place] [address] Social History Tobacco Use Types [...] VANCOMYCIN LEVEL TROUGH STAT 04/25/2021 2:00 AM MARKETING SERVICES VICE PRESIDENT documented in this encounter Results * VANCOMYCIN LEVEL TROUGH (04/25/2021 2:00 AM MARKETING SERVICES VICE PRESIDENT) Vancomycin Trough 19.5 10.0 - 20.0 ug/mL 04/25/2021 9:15 AM MARKETING SERVICES VICE PRESIDENT [facility] Blood BLOOD SPECIMEN / Unknown Venipuncture / Unknown 04/25/2021 2:00 AM MARKETING SERVICES VICE PRESIDENT 04/25/2021 8:44 AM MARKETING SERVICES VICE PRESIDENT Davon Laws MD LAB - CHEMISTRY ORDERABLES Final Result Performing Organization Address City/State/[facility] Co de Phone Number [facility] [address] [place] [address] documented in this encounter Visit Diagnoses Not on filedocumented in this encounter Care Teams Pull Up Hand Relationship Specialty Start Date End Date Pepe aMrtel MD [facility] [address] [facility] [address] [place] [address] PCP - General 08/14/16 documented as of this encounter
--- OUTSIDE RECORDS SUMMARY | 2024-12-28 17:49 | XMS_ITS | Encounter Summary ---
Author Organization [facility] Address [address] [place] [address] Care Team Providers Care Machine Skiver Name Role Phone Pepe Martel MD Primary Care Provider [phone] Encounter Details Date Type Department Care Team (Late st Contact Info) Description 05/15/2021 Lab Requisition [facility] [address] [place] [address] Lamberto De La Cruz MD [address] [facility] [address] [place] [address] Social History Tobacco Use Types [...] W AUTO DIFFERENTIAL STAT 05/15/2021 3:11 AM WOOD POLISHER COMPREHENSIVE METABOLIC PANEL STAT 05/15/2021 3:11 AM WOOD POLISHER documented in this encounter Results * (ABNORMAL) CBC WITH DIFFERENTIAL (05/15/2021 3:11 AM WOOD POLISHER) WBC 9.7 4.4 - 10.7 x10E9/L 05/15/2021 9:38 AM WOOD POLISHER [facility] WBC Corrected 05/15/2021 9:38 AM WOOD POLISHER [facility] RBC 4.26 3.80 - 5.40 x10E12/L 05/15/2021 9:38 AM WOOD POLISHER [facility] Hemoglobin 11.8(L) 12.0 - 17.6 gm/dL 05/15/2021 9:38 AM WOOD POLISHER [facility] Hematocrit 38.7 35.2 - 51.7 % 05/15/2021 9:38 AM WOOD POLISHER [facility] MCV 90.8 80.7 - 98.3 fl 05/15/2021 9:38 AM WOOD POLISHER [facility] MCH 27.7 26.7 - 34.0 pg 05/15/2021 9:38 AM WOOD POLISHER [facility] MCHC 30.5(L) 30.8 - 35.9 gm/dL 05/15/2021 9:38 AM [facility] Platelet Count 403 153 - 416 x10E9/L 05/15/2021 9:38 AM [facility] RDW-CV 12.4 12.1 - 14.9 % 05/15/2021 9:38 AM [facility] MPV 10.5 9.4 - 12.9 fl 05/15/2021 9:38 AM [facility] Neutrophils % 65.0 44.0 - 73.0 % 05/15/2021 9:38 AM [facility] Lymphocytes % 19.5(L) 20.0 - 43.0 % 05/15/2021 9:38 AM [facility] Monocytes % 11.6 5.0 - 13.0 % 05/15/2021 9:38 AM [facility] Eosinophils % 3.2 0.0 - 6.0 % 05/15/2021 9:38 AM [facility] Basophils % 0.5 0.0 - 2.0 % 05/15/2021 9:38 AM [facility] Immature Granulocytes 0.2 0 - 1 % 05/15/2021 9:38 AM [facility] Neutrophil Absolute 6.31 2.01 - 7.14 x10E9/L 05/15/2021 9:38 AM [facility] Lymphocytes Absolute 1.89 1.07 - 3.94 x10E9/L 05/15/2021 9:38 AM [facility] Monocytes Absolute 1.13(H) 0.26 - 1.07 x10E9/L 05/15/2021 9:38 AM [facility] Eosinophils Absolute 0.31 0 - 0.47 x10E9/L 05/15/2021 9:38 AM [facility] Basophils Absolute 0.05 0 - 0.08 x10E9/L 05/15/2021 9:38 AM [facility] Immature Granulocytes Absolute 0.02 0.00 - 0.06 x10E9/L 05/15/2021 9:38 AM [facility] nRBC Auto 0 /100 WBC 05/15/2021 9:38 AM [facility] Blood BLOOD SPECIMEN / Unknown Venipuncture / Unknown 05/15/2021 3:11 AM WOOD POLISHER 05/15/2021 8:27 AM [facility] us Lamberto De La Cruz MD LAB - HEMATOLOGY ORDERABLES Giselle bryan Result [facility] [address] [place] [address] * (ABNORMAL) COMPREHENSIVE METABOLIC PANEL (05/15/2021 3:11 AM WOOD POLISHER) Glucose 114(H) 70 - 105 mg/dL 05/15/2021 9:33 AM [facility] Sodium 142 136 - 145 mmol/L 05/15/2021 9:33 AM [facility] Potassium 4.9 3.5 - 5.1 mmol/L 05/15/2021 9:33 AM [facility] Chloride 102 98 - 107 mmol/L 05/15/2021 9:33 AM [facility] CO2 27 23 - 31 mmol/L 05/15/2021 9:33 AM [facility] Calcium 10.0 8.4 - 10.4 mg/dL 05/15/2021 9:33 AM [facility] Anion Gap 13 8 - 18 mmol/L 05/15/2021 9:33 AM [facility] BUN 35(H) 8.9 - 20.6 mg/dL 05/15/2021 9:33 AM [facility] Creatinine 1.18 0.72 - 1.25 mg/dL 05/15/2021 9:33 AM [facility] Alkaline Phosphatase 118 40 - 150 U/L 05/15/2021 9:33 AM [facility] ALT 42 0 - 61 U/L 05/15/2021 9:33 AM [facility] AST 22 5 - 34 U/L 05/15/2021 9:33 AM [facility] Protein Total 8.2 6.4 - 8.3 gm/dL 05/15/2021 9:33 AM [facility] Albumin 4.2 3.5 - 5.2 gm/dL 05/15/2021 9:33 AM [facility] Bilirubin Total 0.2 0.2 - 1.2 mg/dL 05/15/2021 9:33 AM [facility] eGFR by MDRD >60 >60 mL/min/1.7 3m2 05/15/2021 9:33 AM WOOD POLISHER [facility] eGFR by MDRD >60 >60 mL/min/1.7 3m2 05/15/2021 9:33 AM WOOD POLISHER [facility] Blood BLOOD SPECIMEN / Unknown Venipuncture / Unknown 05/15/2021 3:11 AM WOOD POLISHER 05/15/2021 8:27 AM WOOD POLISHER Lamberto De La Cruz MD LAB - CHEMISTRY ORDERABLES Final Result Performing Organization Address City/State/[facility] Co de Phone Number [facility] [address] [place] [address] documented in this encounter Visit Diagnoses Not on filedocumented in this encounter Care Teams Machine Skiver Relationship Specialty Start Date End Date Pepe Martel MD [address] [place] [id number] PCP - General 08/14/16 documented as of this encounter
--- OUTSIDE RECORDS SUMMARY | 2024-12-28 17:49 | XMS_ITS | Encounter Summary ---
Author Organization [facility] Address [address] [place] [address] Care Team Providers Care Websphere Architect Name Role Phone Pepe Martel MD Primary Care Provider Encounter Details Date Type Department Care Team (Late st Contact Info) Description 07/24/2021 Lab Requisition [facility] [address] [place] [address] [place] [address] [place] [address] Social History Tobacco Use Types Packs/Day Years [...] W AUTO DIFFERENTIAL STAT 07/24/2021 3:45 AM SKEIN WINDING OPERATOR COMPREHENSIVE METABOLIC PANEL STAT 07/24/2021 3:45 AM SKEIN WINDING OPERATOR documented in this encounter Results * (ABNORMAL) CBC WITH DIFFERENTIAL (07/24/2021 3:45 AM SKEIN WINDING OPERATOR) WBC 9.2 4.4 - 10.7 x10E9/L 07/24/2021 10:02 AM SKEIN WINDING OPERATOR [facility] WBC Corrected 07/24/2021 10:02 AM SKEIN WINDING OPERATOR [facility] RBC 4.42 3.80 - 5.40 x10E12/L 07/24/2021 10:02 AM SKEIN WINDING OPERATOR [facility] Hemoglobin 11.4(L) 12.0 - 17.6 gm/dL 07/24/2021 10:02 AM SKEIN WINDING OPERATOR [facility] Hematocrit 37.1 35.2 - 51.7 % 07/24/2021 10:02 AM SKEIN WINDING OPERATOR [facility] MCV 83.9 80.7 - 98.3 fl 07/24/2021 10:02 AM SKEIN WINDING OPERATOR [facility] MCH 25.8(L) 26.7 - 34.0 pg 07/24/2021 10:02 AM SKEIN WINDING OPERATOR [facility] MCHC 30.7(L) 30.8 - 35.9 gm/dL 07/24/2021 10:02 AM [facility] Platelet Count 474(H) 153 - 416 x10E9/L 07/24/2021 10:02 AM [facility] RDW-CV 14.0 12.1 - 14.9 % 07/24/2021 10:02 AM [facility] MPV 9.8 9.4 - 12.9 fl 07/24/2021 10:02 AM [facility] Neutrophils % 64.2 44.0 - 73.0 % 07/24/2021 10:02 AM [facility] Lymphocytes % 21.5 20.0 - 43.0 % 07/24/2021 10:02 AM [facility] Monocytes % 10.7 5.0 - 13.0 % 07/24/2021 10:02 AM [facility] Eosinophils % 3.1 0.0 - 6.0 % 07/24/2021 10:02 AM [facility] Basophils % 0.2 0.0 - 2.0 % 07/24/2021 10:02 AM [facility] Immature Granulocytes 0.3 0 - 1 % 07/24/2021 10:02 AM [facility] Neutrophil Absolute 5.90 2.01 - 7.14 x10E9/L 07/24/2021 10:02 AM [facility] Lymphocytes Absolute 1.97 1.07 - 3.94 x10E9/L 07/24/2021 10:02 AM [facility] Monocytes Absolute 0.98 0.26 - 1.07 x10E9/L 07/24/2021 10:02 AM [facility] Eosinophils Absolute 0.28 0 - 0.47 x10E9/L 07/24/2021 10:02 AM [facility] Basophils Absolute 0.02 0 - 0.08 x10E9/L 07/24/2021 10:02 AM [facility] Immature Granulocytes Absolute 0.03 0.00 - 0.06 x10E9/L 07/24/2021 10:02 AM [facility] nRBC Auto 0 /100 WBC 07/24/2021 10:02 AM [facility] Blood BLOOD SPECIMEN / Unknown Venipuncture / Unknown 07/24/2021 3:45 AM SKEIN WINDING OPERATOR 07/24/2021 9:30 AM [facility] us Vinicio Quintanilla MD LAB - HEMATOLOGY ORDERABLES Giselle adams Result [facility] [address] [place] [address] * (ABNORMAL) COMPREHENSIVE METABOLIC PANEL (07/24/2021 3:45 AM SKEIN WINDING OPERATOR) Glucose 110(H) 70 - 105 mg/dL 07/24/2021 10:36 AM [facility] Sodium 141 136 - 145 mmol/L 07/24/2021 10:36 AM [facility] Potassium 4.7 3.5 - 5.1 mmol/L 07/24/2021 10:36 AM [facility] Chloride 102 98 - 107 mmol/L 07/24/2021 10:36 AM [facility] CO2 25 23 - 31 mmol/L 07/24/2021 10:36 AM [facility] Calcium 10.3 8.4 - 10.4 mg/dL 07/24/2021 10:36 AM [facility] Anion Gap 14 8 - 18 mmol/L 07/24/2021 10:36 AM [facility] BUN 33(H) 8.9 - 20.6 mg/dL 07/24/2021 10:36 AM [facility] Creatinine 1.07 0.72 - 1.25 mg/dL 07/24/2021 10:36 AM [facility] Alkaline Phosphatase 195(H) 40 - 150 U/L 07/24/2021 10:36 AM [facility] ALT 40 0 - 61 U/L 07/24/2021 10:36 AM [facility] AST 21 5 - 34 U/L 07/24/2021 10:36 AM [facility] Protein Total 7.7 6.4 - 8.3 gm/dL 07/24/2021 10:36 AM [facility] Albumin 3.7 3.5 - 5.2 gm/dL 07/24/2021 10:36 AM [facility] Bilirubin Total 0.5 0.2 - 1.2 mg/dL 07/24/2021 10:36 AM [facility] eGFR by CKD-EPI >90 >=90 mL/min/1.7 3 m2 07/24/2021 10:36 AM SKEIN WINDING OPERATOR [facility] Blood BLOOD SPECIMEN / Unknown Venipuncture / Unknown 07/24/2021 3:45 AM SKEIN WINDING OPERATOR 07/24/2021 9:30 AM SKEIN WINDING OPERATOR Narrative [facility] - 07/24/2021 10:36 AM SKEIN WINDING OPERATOR eGFR result was calculated using the updated CKD-EPI Creatinine Equations (2020). Prior to go live 2021 the eGFR was calculated using the MDRD calculation. Please note Reference Range change. us Vinicio Quintanilla MD LAB - CHEMISTRY ORDERABLES Final Result [facility] [address] [place] [address] documented in this encounter Visit Diagnoses Not on filedocumented in this encounter Care Teams Websphere Architect Relationship Specialty Start Date End Date Pepe Martel MD [address] [place] [id number] PCP - General 08/14/16 documented as of this encounter
--- OUTSIDE RECORDS SUMMARY | 2024-12-28 17:49 | XMS_ITS | Encounter Summary ---
Author Organization [facility] Address [address] [place] [address] Care Team Providers Care Language Assistant Name Role Phone Pepe Martel MD Primary Care Provider [phone] Encounter Details Date Type Department Care Team (Late st Contact Info) Description 05/05/2021 Lab Requisition [facility] [address] [place] [address] Lamberto De La Cruz MD [address] [facility] [address] [place] [address] Social History Tobacco Use Types [...] W AUTO DIFFERENTIAL STAT 05/05/2021 5:32 AM RN ACUTE CARE COMPREHENSIVE METABOLIC PANEL STAT 05/05/2021 5:32 AM RN ACUTE CARE documented in this encounter Results * (ABNORMAL) COMPREHENSIVE METABOLIC PANEL (05/05/2021 5:32 AM RN ACUTE CARE) Glucose 119(H) 70 - 105 mg/dL 05/05/2021 1:08 PM RN ACUTE CARE [facility] Sodium 137 136 - 145 mmol/L 05/05/2021 1:08 PM RN ACUTE CARE [facility] Potassium 4.6 3.5 - 5.1 mmol/L 05/05/2021 1:08 PM RN ACUTE CARE [facility] Chloride 100 98 - 107 mmol/L 05/05/2021 1:08 PM RN ACUTE CARE [facility] CO2 24 23 - 31 mmol/L 05/05/2021 1:08 PM RN ACUTE CARE [facility] Calcium 9.7 8.4 - 10.4 mg/dL 05/05/2021 1:08 PM RN ACUTE CARE [facility] Anion Gap 13 8 - 18 mmol/L 05/05/2021 1:08 PM RN ACUTE CARE [facility] BUN 33(H) 8.9 - 20.6 mg/dL 05/05/2021 1:08 PM RN ACUTE CARE [facility] Creatinine 0.85 0.72 - 1.25 mg/dL 05/05/2021 1:08 PM RN ACUTE CARE [facility] Alkaline Phosphatase 98 40 - 150 U/L 05/05/2021 1:08 PM RN ACUTE CARE [facility] ALT 34 0 - 61 U/L 05/05/2021 1:08 PM RN ACUTE CARE [facility] AST 22 5 - 34 U/L 05/05/2021 1:08 PM [facility] Protein Total 7.3 6.4 - 8.3 gm/dL 05/05/2021 1:08 PM RN ACUTE CARE [facility] Albumin 3.7 3.5 - 5.2 gm/dL 05/05/2021 1:08 PM [facility] Bilirubin Total 0.3 0.2 - 1.2 mg/dL 05/05/2021 1:08 PM [facility] eGFR by MDRD >60 >60 mL/min/1.7 3m2 05/05/2021 1:08 PM [facility] eGFR by MDRD >60 >60 mL/min/1.7 3m2 05/05/2021 1:08 PM [facility] Blood BLOOD SPECIMEN / Unknown Venipuncture / Unknown 05/05/2021 5:32 AM RN ACUTE CARE 05/05/2021 12:02 PM RN ACUTE CARE us Lamberto De La Cruz MD LAB - CHEMISTRY ORDERABLES Final Result Performing Organization Address [facility]/State/ZIP Co de Phone Number [facility] [address] [place] [address] * (ABNORMAL) CBC WITH DIFFERENTIAL (05/05/2021 5:32 AM RN ACUTE CARE) [facility] WBC 6.5 4.4 - 10.7 x10E9/L 05/05/2021 12:31 PM RN ACUTE CARE [facility] WBC Corrected 05/05/2021 12:31 PM RN ACUTE CARE [facility] RBC 3.95 3.80 - 5.40 x10E12/L 05/05/2021 12:31 PM [facility] Hemoglobin 11.0(L) 12.0 - 17.6 gm/dL 05/05/2021 12:31 PM RN ACUTE CARE [facility] Hematocrit 35.4 35.2 - 51.7 % 05/05/2021 12:31 PM [facility] MCV 89.6 80.7 - 98.3 fl 05/05/2021 12:31 PM [facility] MCH 27.8 26.7 - 34.0 pg 05/05/2021 12:31 PM [facility] MCHC 31.1 30.8 - 35.9 gm/dL 05/05/2021 12:31 PM [facility] Platelet Count 398 153 - 416 x10E9/L 05/05/2021 12:31 PM [facility] RDW-CV 13.2 12.1 - 14.9 % 05/05/2021 12:31 PM [facility] MPV 10.4 9.4 - 12.9 fl 05/05/2021 12:31 PM [facility] Neutrophils % 67.5 44.0 - 73.0 % 05/05/2021 12:31 PM [facility] Lymphocytes % 16.4(L) 20.0 - 43.0 % 05/05/2021 12:31 PM [facility] Monocytes % 10.1 5.0 - 13.0 % 05/05/2021 12:31 PM [facility] Eosinophils % 5.3 0.0 - 6.0 % 05/05/2021 12:31 PM [facility] Basophils % 0.5 0.0 - 2.0 % 05/05/2021 12:31 PM [facility] Immature Granulocytes 0.2 0 - 1 % 05/05/2021 12:31 PM [facility] Neutrophil Absolute 4.36 2.01 - 7.14 x10E9/L 05/05/2021 12:31 PM [facility] Lymphocytes Absolute 1.06(L) 1.07 - 3.94 x10E9/L 05/05/2021 12:31 PM [facility] Monocytes Absolute 0.65 0.26 - 1.07 x10E9/L 05/05/2021 12:31 PM [facility] Eosinophils Absolute 0.34 0 - 0.47 x10E9/L 05/05/2021 12:31 PM [facility] Basophils Absolute 0.03 0 - 0.08 x10E9/L 05/05/2021 12:31 PM [facility] Immature Granulocytes Absolute 0.01 0.00 - 0.06 x10E9/L 05/05/2021 12:31 PM RN ACUTE CARE [facility] nRBC Auto 0 /100 WBC 05/05/2021 12:31 PM RN ACUTE CARE [facility] Blood BLOOD SPECIMEN / Unknown Venipuncture / Unknown 05/05/2021 5:32 AM RN ACUTE CARE 05/05/2021 12:02 PM RN ACUTE CARE us Lamberto De La Cruz MD LAB - HEMATOLOGY ORDERABLES Giselle adams Result Performing Organization Address City/State/[facility] Co de Phone Number [facility] [address] [place] [address] documented in this encounter Visit Diagnoses Not on filedocumented in this encounter Care Teams Language Assistant Relationship Specialty Start Date End Date Pepe Martel MD [address] [place] [address] [address] [place] [address] PCP - General 08/14/16 documented as of this encounter
--- OUTSIDE RECORDS SUMMARY | 2024-12-28 17:49 | XMS_ITS | Encounter Summary ---
Author Organization [facility] Address [address] [facility] [place] [address] Care Team Providers Care Trim Carpenter Name Role Phone Pepe Martel MD Primary Care Provider [phone] Encounter Details Date Type Department Care Team (Late st Contact Info) Description 05/23/2021 Lab Requisition [facility] [address] [place], [place] [id number] [place] [address] [place] [address] Social History Tobacco Use Types [...] SLIDE SCAN HEMATOLOGY Routine 05/23/2021 4:00 AM BEAM DYER CBC W AUTO DIFFERENTIAL STAT 05/23/2021 4:00 AM BEAM DYER documented in this encounter Results * SLIDE SCAN HEMATOLOGY (05/23/2021 4:00 AM BEAM DYER) Pathologist [facility] WBC Morph Normal 05/23/2021 9:33 AM BEAM DYER [facility] RBC Morphology Normal 05/23/2021 9:33 AM BEAM DYER [facility] Platelet Estimation Normal Normal, Adequate platelets 05/23/2021 9:33 AM BEAM DYER [facility] Blood BLOOD SPECIMEN / Unknown Venipuncture / Unknown 05/23/2021 4:00 AM BEAM DYER 05/23/2021 8:32 AM BEAM DYER us Braden Hernandez MD LAB - HEMATOLOGY ORDERABLES F inal Result [facility] [address] [place] [address] * (ABNORMAL) CBC WITH DIFFERENTIAL (05/23/2021 4:00 AM BEAM DYER) WBC 7.7 4.4 - 10.7 x10E9/L 05/23/2021 8:48 AM [facility] WBC Corrected 05/23/2021 8:48 AM [facility] RBC 3.64(L) 3.80 - 5.40 x10E12/L 05/23/2021 8:48 AM [facility] Hemoglobin 10.1(L) 12.0 - 17.6 gm/dL 05/23/2021 8:48 AM [facility] Hematocrit 32.2(L) 35.2 - 51.7 % 05/23/2021 8:48 AM [facility] MCV 88.5 80.7 - [...] 1.07 - 3.94 x10E9/L 05/23/2021 8:48 AM BEAM DYER [facility] Monocytes Absolute 0.91 0.26 - 1.07 x10E9/L 05/23/2021 8:48 AM BEAM DYER [facility] Eosinophils Absolute 0.29 0 - 0.47 x10E9/L 05/23/2021 8:48 AM BEAM DYER [facility] Basophils Absolute 0.02 0 - 0.08 x10E9/L 05/23/2021 8:48 AM BEAM DYER [facility] Immature Granulocytes Absolute 0.02 0.00 - 0.06 x10E9/L 05/23/2021 8:48 AM BEAM DYER [facility] nRBC Auto 0 /100 WBC 05/23/2021 8:48 AM BEAM DYER [facility] Blood BLOOD SPECIMEN / Unknown Venipuncture / Unknown 05/23/2021 4:00 AM BEAM DYER 05/23/2021 8:32 AM BEAM DYER us Braden Nathan Hernandez MD LAB - HEMATOLOGY ORDERABLES F inal Result Performing Organization Address City/State/[facility] Co de Phone Number [facility] [address] [place] [address] documented in this encounter Visit Diagnoses Not on filedocumented in this encounter Care Teams Trim Carpenter Relationship Specialty Start Date End Date Pepe Martel MD [address] [place] [id number] PCP - General 08/14/16 documented as of this encounter
--- OUTSIDE RECORDS SUMMARY | 2024-12-28 17:49 | XMS_ITS | Encounter Summary ---
Author Organization [facility] Address [address] [place] [address] Care Team Providers Care Job Molder Name Role Phone Pepe Martel MD Primary Care Provider [phone] Encounter Details Date Type Department Care Team (Late st Contact Info) Description 08/06/2021 Lab Requisition [facility] [address] [place] [address] Davon Laws MD [address] [place] [address] Social History Tobacco Use Types [...] Auto 10.5 x10E9/L 08/06/2021 9:46 AM CDT [facility] WBC Corrected 08/06/2021 9:46 AM CDT [facility] nRBC 08/06/2021 9:46 AM CDT [facility] Neutrophil % Manual 74(H) 44 - 73 % 08/06/2021 9:46 AM CDT [facility] Lymphocytes % Manual 17(L) 20 - 43 % 08/06/2021 9:46 AM CDT [facility] Monocytes % Manual 3(L) 5 - 13 % 08/06/2021 9:46 AM CDT [facility] Eosinophils % Manual 5 0 - 6 % 08/06/2021 9:46 AM CDT [facility] Basophils % Manual 1 0 - 2 % 08/06/2021 9:46 AM CDT [facility] Neutrophils Absolute Manual 7.77(H) 2.01 - 7.14 x10E9/L 08/06/2021 9:46 AM CDT [facility] Lymphocytes Absolute Manual 1.79 1.07 - 3.94 x10E9/L 08/06/2021 9:46 AM CDT [facility] Monocytes Absolute Manual 0.32 0.26 - 1.07 x10E9/L 08/06/2021 9:46 AM CDT [facility] Eosinophils Absolute Manual 0.53(H) 0.00 - 0.47 x10E9/L 08/06/2021 9:46 AM CDT [facility] Basophils Absolute Manual 0.11(H) 0.00 - 0.08 x10E9/L 08/06/2021 9:46 AM CDT [facility] Cells Counted 100 # cells 08/06/2021 9:46 AM CDT [facility] Platelet Estimation Increased (A) Normal, Adequate platelets 08/06/2021 9:46 AM CDT [facility] WBC Morph Normal 08/06/2021 9:46 AM CDT [facility] Polychromasia Occasiona l(A) None 08/06/2021 9:46 AM CDT [facility] Fragmented RBCs Occasiona l(A) None 08/06/2021 9:46 AM CDT [facility] Clumped Platelets Occasiona l(A) None 08/06/2021 9:46 AM CDT [facility] Blood BLOOD SPECIMEN / Unknown Venipuncture / Unknown 08/06/2021 5:17 AM CDT 08/06/2021 8:40 AM CDT Davon Laws MD LAB - HEMATOLOGY ORDERABLES Giselle l Result [facility] [address] [place], [place] [id number] * (ABNORMAL) CBC WITH DIFFERENTIAL (08/06/2021 5:17 AM CDT) [facility] WBC 10.5 4.4 - 10.7 x10E9/L 08/06/2021 8:51 AM CDT [facility] WBC Corrected 08/06/2021 8:51 AM CDT [facility] RBC 3.89 3.80 - 5.40 x10E12/L 08/06/2021 8:51 AM CDT [facility] Hemoglobin 10.2(L) 12.0 - 17.6 gm/dL 08/06/2021 8:51 AM CDT [facility] Hematocrit 34.2(L) 35.2 - 51.7 % 08/06/2021 8:51 AM CDT [facility] MCV 87.9 80.7 - 98.3 fl 08/06/2021 8:51 AM CDT [facility] MCH 26.2(L) 26.7 - 34.0 pg 08/06/2021 8:51 AM CDT [facility] MCHC 29.8(L) 30.8 - 35.9 gm/dL 08/06/2021 8:51 AM CDT [facility] Platelet Count 470(H) 153 - 416 x10E9/L 08/06/2021 8:51 AM CDT [facility] RDW-CV 15.8(H) 12.1 - 14.9 % 08/06/2021 8:51 AM CDT [facility] MPV 10.6 9.4 - 12.9 fl 08/06/2021 8:51 AM CDT [facility] nRBC Auto 0 /100 WBC 08/06/2021 8:51 AM CDT [facility] Blood BLOOD SPECIMEN / Unknown Venipuncture / Unknown 08/06/2021 5:17 AM CDT 08/06/2021 8:40 AM CDT us Davon Laws MD LAB - HEMATOLOGY ORDERABLES Giselle adams Result Performing Organization Address City/State/[facility] Co de Phone Number [facility] [address] [place] [address] documented in this encounter Visit Diagnoses Not on filedocumented in this encounter Care Teams Job Molder Relationship Specialty Start Date End Date Pepe Martel MD [address] [place] [id number] PCP - General 08/14/16 documented as of this encounter
--- OUTSIDE RECORDS SUMMARY | 2024-12-28 17:49 | XMS_ITS | Encounter Summary ---
Author Organization [facility] Address [address] [place] [address] Care Team Providers Care Software Consultant Name Role Phone Pepe Martel MD Primary Care Provider [phone] Encounter Details Date Type Department Care Team (Late st Contact Info) Description 06/09/2021 Lab Requisition [facility] [address] [place] [id number] Social History Tobacco Use Types Packs/Day Years [...] W AUTO DIFFERENTIAL STAT 06/09/2021 4:00 AM CABINET MAKER COMPREHENSIVE METABOLIC PANEL STAT 06/09/2021 4:00 AM CABINET MAKER documented in this encounter Results * (ABNORMAL) CBC WITH DIFFERENTIAL (06/09/2021 4:00 AM CABINET MAKER) WBC 12.1(H) 4.4 - 10.7 x10E9/L 06/09/2021 9:55 AM CABINET MAKER [facility] WBC Corrected 06/09/2021 9:55 AM CABINET MAKER [facility] RBC 4.28 3.80 - 5.40 x10E12/L 06/09/2021 9:55 AM CABINET MAKER [facility] Hemoglobin 11.5(L) 12.0 - 17.6 gm/dL 06/09/2021 9:55 AM CABINET MAKER [facility] Hematocrit 36.9 35.2 - 51.7 % 06/09/2021 9:55 AM CABINET MAKER [facility] MCV 86.2 80.7 - 98.3 fl 06/09/2021 9:55 AM CABINET MAKER [facility] MCH 26.9 26.7 - 34.0 pg 06/09/2021 9:55 AM CABINET MAKER [facility] MCHC 31.2 30.8 - 35.9 gm/dL 06/09/2021 9:55 AM CABINET MAKER [facility] Platelet Count 533(H) 153 - 416 x10E9/L 06/09/2021 9:55 AM CABINET MAKER [facility] RDW-CV 12.3 12.1 - 14.9 % 06/09/2021 9:55 AM [facility] MPV 9.2(L) 9.4 - 12.9 fl 06/09/2021 9:55 AM [facility] Neutrophils % 69.1 44.0 - 73.0 % 06/09/2021 9:55 AM [facility] Lymphocytes % 14.6(L) 20.0 - 43.0 % 06/09/2021 9:55 AM [facility] Monocytes % 12.6 5.0 - 13.0 % 06/09/2021 9:55 AM [facility] Eosinophils % 2.9 0.0 - 6.0 % 06/09/2021 9:55 AM [facility] Basophils % 0.3 0.0 - 2.0 % 06/09/2021 9:55 AM [facility] Immature Granulocytes 0.5 0 - 1 % 06/09/2021 9:55 AM [facility] Neutrophil Absolute 8.36(H) 2.01 - 7.14 x10E9/L 06/09/2021 9:55 AM [facility] Lymphocytes Absolute 1.77 1.07 - 3.94 x10E9/L 06/09/2021 9:55 AM [facility] Monocytes Absolute 1.53(H) 0.26 - 1.07 x10E9/L 06/09/2021 9:55 AM [facility] Eosinophils Absolute 0.35 0 - 0.47 x10E9/L 06/09/2021 9:55 AM [facility] Basophils Absolute 0.04 0 - 0.08 x10E9/L 06/09/2021 9:55 AM [facility] Immature Granulocytes Absolute 0.06 0.00 - 0.06 x10E9/L 06/09/2021 9:55 AM [facility] nRBC Auto 0 /100 WBC 06/09/2021 9:55 AM [facility] Blood BLOOD SPECIMEN / Unknown Venipuncture / Unknown 06/09/2021 4:00 AM CABINET MAKER 06/09/2021 9:50 AM [facility] us LAB - HEMATOLOGY ORDERABLES Giselle l Result [facility] [address] [place] [address] * (ABNORMAL) COMPREHENSIVE METABOLIC PANEL (06/09/2021 4:00 AM [facility]) Glucose 119(H) 70 - 105 mg/dL 06/09/2021 10:51 AM [facility] Sodium 138 136 - 145 mmol/L 06/09/2021 10:51 AM [facility] Potassium 5.2(H) 3.5 - 5.1 mmol/L 06/09/2021 10:51 AM [facility] Chloride 99 98 - 107 mmol/L 06/09/2021 10:51 AM [facility] CO2 25 23 - 31 mmol/L 06/09/2021 10:51 AM [facility] Calcium 10.1 8.4 - 10.4 mg/dL 06/09/2021 10:51 AM [facility] Anion Gap 14 8 - 18 mmol/L 06/09/2021 10:51 AM [facility] BUN 32(H) 8.9 - 20.6 mg/dL 06/09/2021 10:51 AM [facility] Creatinine 0.96 0.72 - 1.25 mg/dL 06/09/2021 10:51 AM [facility] Alkaline Phosphatase 175(H) 40 - 150 U/L 06/09/2021 10:51 AM [facility] ALT 38 0 - 61 U/L 06/09/2021 10:51 AM [facility] AST 21 5 - 34 U/L 06/09/2021 10:51 AM [facility] Protein Total 8.6(H) 6.4 - 8.3 gm/dL 06/09/2021 10:51 AM [facility] Albumin 3.9 3.5 - 5.2 gm/dL 06/09/2021 10:51 AM [facility] Bilirubin Total 0.2 0.2 - 1.2 mg/dL 06/09/2021 10:51 AM [facility] eGFR by MDRD >60 >60 mL/min/1.7 3m2 06/09/2021 10:51 AM [facility] eGFR by MDRD >60 >60 mL/min/1.7 3m2 06/09/2021 10:51 AM CABINET MAKER [facility] Blood BLOOD SPECIMEN / Unknown Venipuncture / Unknown 06/09/2021 4:00 AM CABINET MAKER 06/09/2021 9:50 AM CABINET MAKER us LAB - CHEMISTRY ORDERABLES Final Result Performing Organization Address City/State/[place] de Phone Number [facility] [address] [place] [address] documented in this encounter Visit Diagnoses Not on filedocumented in this encounter Care Teams Software Consultant Relationship Specialty Start Date End Date Pepe Martel MD [address] [place] [id number] PCP - General 08/14/16 documented as of this encounter
--- OUTSIDE RECORDS SUMMARY | 2024-12-28 17:49 | XMS_ITS | Encounter Summary ---
Author Organization [facility] Address [address] [place] [address] Care Team Providers Care Medical Investigator Name Role Phone Pepe Martel MD Primary Care Provider [phone] Encounter Details Date Type Department Care Team (Late st Contact Info) Description 05/08/2021 Lab Requisition [facility] [address] [place] [address] Lamberto De La Cruz MD [address] [facility] [address] [place] [address] Social History Tobacco Use Types [...] W AUTO DIFFERENTIAL Routine 05/08/2021 3:30 AM [employer]UTENA[employer] SHIFT SUPERVISOR COMPREHENSIVE METABOLIC PANEL Routine 05/08/2021 3:30 AM [employer] SHIFT SUPERVISOR documented in this encounter Results * (ABNORMAL) COMPREHENSIVE METABOLIC PANEL (05/08/2021 3:30 AM [employer] SHIFT SUPERVISOR) Glucose 111(H) 70 - 105 mg/dL 05/08/2021 11:21 AM [employer]UTENA[employer] SHIFT SUPERVISOR [facility] Sodium 139 136 - 145 mmol/L 05/08/2021 11:21 AM [employer]ENA[employer] SHIFT SUPERVISOR [facility] Potassium 4.7 3.5 - 5.1 mmol/L 05/08/2021 11:21 AM [employer]ENA[employer] SHIFT SUPERVISOR [facility] Chloride 100 98 - 107 mmol/L 05/08/2021 11:21 AM [employer] SHIFT SUPERVISOR [facility] CO2 27 23 - 31 mmol/L 05/08/2021 11:21 AM [employer] SHIFT SUPERVISOR [facility] Calcium 9.9 8.4 - 10.4 mg/dL 05/08/2021 11:21 AM [employer] SHIFT SUPERVISOR [facility] Anion Gap 12 8 - 18 mmol/L 05/08/2021 11:21 AM [employer] SHIFT SUPERVISOR [facility] BUN 31(H) 8.9 - 20.6 mg/dL 05/08/2021 11:21 AM [employer] SHIFT SUPERVISOR [facility] Creatinine 0.96 0.72 - 1.25 mg/dL 05/08/2021 11:[address] [facility] Alkaline Phosphatase 103 40 - 150 U/L 05/08/2021 11:[address] [facility] ALT 35 0 - 61 U/L 05/08/2021 11:[address] [facility] AST 21 5 - 34 U/L 05/08/2021 11:[address] [facility] Protein Total 7.8 6.4 - 8.3 gm/dL 05/08/2021 11:[address] [facility] Albumin 3.9 3.5 - 5.2 gm/dL 05/08/2021 11:[address] [facility] Bilirubin Total 0.2 0.2 - 1.2 mg/dL 05/08/2021 11:[address] [facility] eGFR by MDRD >60 >60 mL/min/1.7 3m2 05/08/2021 11:[address] [facility] eGFR by MDRD >60 >60 mL/min/1.7 3m2 05/08/2021 11:[address] [facility] Blood BLOOD SPECIMEN / Unknown Venipuncture / Unknown 05/08/2021 3:30 AM [employer]ENA[employer] SHIFT SUPERVISOR 05/08/2021 10:47 AM [employer] SHIFT SUPERVISOR us Lamberto De La Cruz MD LAB - CHEMISTRY ORDERABLES Final Result Performing Organization Address [facility]/State/ZIP Co de Phone Number [facility] [address] [place] [address] * (ABNORMAL) CBC WITH DIFFERENTIAL (05/08/2021 3:30 AM LIEUTENANT SHIFT SUPERVISOR) [facility] WBC 7.1 4.4 - 10.7 x10E9/L 05/08/2021 10:56 AM L[employer]ENA[employer] SHIFT SUPERVISOR [facility] WBC Corrected 05/08/2021 10:[address] [facility] RBC 4.11 3.80 - 5.40 x10E12/L 05/08/2021 10:[address] [facility] Hemoglobin 11.5(L) 12.0 - 17.6 gm/dL 05/08/2021 10:[address] [facility] Hematocrit 36.8 35.2 - 51.7 % 05/08/2021 10:[address] [facility] MCV 89.5 80.7 - 98.3 fl 05/08/2021 10:[address] [facility] MCH 28.0 26.7 - 34.0 pg 05/08/2021 10:[address] [facility] MCHC 31.3 30.8 - 35.9 gm/dL 05/08/2021 10:[address] [facility] Platelet Count 442(H) 153 - 416 x10E9/L 05/08/2021 10:[address] [facility] RDW-CV 13.2 12.1 - 14.9 % 05/08/2021 10:[address] [facility] MPV 10.1 9.4 - 12.9 fl 05/08/2021 10:[address] [facility] Neutrophils % 68.3 44.0 - 73.0 % 05/08/2021 10:[address] [facility] Lymphocytes % 18.0(L) 20.0 - 43.0 % 05/08/2021 10:[address] [facility] Monocytes % 8.6 5.0 - 13.0 % 05/08/2021 10:[address] [facility] Eosinophils % 4.6 0.0 - 6.0 % 05/08/2021 10:[address] [facility] Basophils % 0.4 0.0 - 2.0 % 05/08/2021 10:[address] [facility] Immature Granulocytes 0.1 0 - 1 % 05/08/2021 10:[address] [facility] Neutrophil Absolute 4.84 2.01 - 7.14 x10E9/L 05/08/2021 10:[address] [facility] Lymphocytes Absolute 1.28 1.07 - 3.94 x10E9/L 05/08/2021 10:[address] [facility] Monocytes Absolute 0.61 0.26 - 1.07 x10E9/L 05/08/2021 10:[address] [facility] Eosinophils Absolute 0.33 0 - 0.47 x10E9/L 05/08/2021 10:[address] [facility] Basophils Absolute 0.03 0 - 0.08 x10E9/L 05/08/2021 10:[address] [facility] Immature Granulocytes Absolute 0.01 0.00 - 0.06 x10E9/L 05/08/2021 10:56 AM [employer] SHIFT SUPERVISOR [facility] nRBC Auto 0 /100 WBC 05/08/2021 10:56 AM [employer] SH[employer] SUPERVISOR [facility] Blood BLOOD SPECIMEN / Unknown Venipuncture / Unknown 05/08/2021 3:30 AM [employer]ENA[employer] SHIFT SUPERVISOR 05/08/2021 10:47 AM [employer] SHIFT SUPERVISOR us Lamberto De La Cruz MD LAB - HEMATOLOGY ORDERABLES Giselle adams Result Performing Organization Address City/State/[facility] Co de Phone Number [facility] [address] [place] [address] documented in this encounter Visit Diagnoses Not on filedocumented in this encounter Care Teams Medical Investigator Relationship Specialty Start Date End Date Pepe Martel MD [address] [place] [address] [address] [place] [address] PCP - General 08/14/16 documented as of this encounter
--- OUTSIDE RECORDS SUMMARY | 2024-12-28 17:49 | XMS_ITS | Encounter Summary ---
Author Organization [facility] Address [address] [facility] [place] [address] Care Team Providers Care Roller Bearing Inspector Name Role Phone Pepe Martel MD Primary Care Provider [phone] Encounter Details Date Type Department Care Team (Late st Contact Info) Description 05/12/2021 Lab Requisition [facility] [address] [place] [address] Lamberto De La Cruz MD [address] [facility] [address] [place] [address] Social History Tobacco Use Types [...] W AUTO DIFFERENTIAL STAT 05/12/2021 4:00 AM CALIBRATION TESTER COMPREHENSIVE METABOLIC PANEL STAT 05/12/2021 4:00 AM CALIBRATION TESTER documented in this encounter Results * (ABNORMAL) CBC WITH DIFFERENTIAL (05/12/2021 4:00 AM CALIBRATION TESTER) WBC 7.6 4.4 - 10.7 x10E9/L 05/12/2021 10:20 AM CALIBRATION TESTER [facility] WBC Corrected 05/12/2021 10:20 AM CALIBRATION TESTER [facility] RBC 4.26 3.80 - 5.40 x10E12/L 05/12/2021 10:20 AM CALIBRATION TESTER [facility] Hemoglobin 11.7(L) 12.0 - 17.6 gm/dL 05/12/2021 10:20 AM CALIBRATION TESTER [facility] Hematocrit 37.9 35.2 - 51.7 % 05/12/2021 10:20 AM CALIBRATION TESTER [facility] MCV 89.0 80.7 - 98.3 fl 05/12/2021 10:20 AM CALIBRATION TESTER [facility] MCH 27.5 26.7 - 34.0 pg 05/12/2021 10:20 AM CALIBRATION TESTER [facility] MCHC 30.9 30.8 - 35.9 gm/dL 05/12/2021 10:20 AM CALIBRATION TESTER [facility] Platelet Count 438(H) 153 - 416 x10E9/L 05/12/2021 10:20 AM [facility] RDW-CV 12.7 12.1 - 14.9 % 05/12/2021 10:20 AM [facility] MPV 10.0 9.4 - 12.9 fl 05/12/2021 10:20 AM [facility] Neutrophils % 58.1 44.0 - 73.0 % 05/12/2021 10:20 AM [facility] Lymphocytes % 25.1 20.0 - 43.0 % 05/12/2021 10:20 AM [facility] Monocytes % 11.9 5.0 - 13.0 % 05/12/2021 10:20 AM [facility] Eosinophils % 3.9 0.0 - 6.0 % 05/12/2021 10:20 AM [facility] Basophils % 0.7 0.0 - 2.0 % 05/12/2021 10:20 AM [facility] Immature Granulocytes 0.3 0 - 1 % 05/12/2021 10:20 AM [facility] Neutrophil Absolute 4.43 2.01 - 7.14 x10E9/L 05/12/2021 10:20 AM [facility] Lymphocytes Absolute 1.91 1.07 - 3.94 x10E9/L 05/12/2021 10:20 AM [facility] Monocytes Absolute 0.91 0.26 - 1.07 x10E9/L 05/12/2021 10:20 AM [facility] Eosinophils Absolute 0.30 0 - 0.47 x10E9/L 05/12/2021 10:20 AM [facility] Basophils Absolute 0.05 0 - 0.08 x10E9/L 05/12/2021 10:20 AM [facility] Immature Granulocytes Absolute 0.02 0.00 - 0.06 x10E9/L 05/12/2021 10:20 AM [facility] nRBC Auto 0 /100 WBC 05/12/2021 10:20 AM [facility] Blood BLOOD SPECIMEN / Unknown Venipuncture / Unknown 05/12/2021 4:00 AM CALIBRATION TESTER 05/12/2021 9:49 AM [facility] us Lamberto De La Cruz MD LAB - HEMATOLOGY ORDERABLES Giselle bryan Result [facility] [address] [place], [place] [id number] * (ABNORMAL) COMPREHENSIVE METABOLIC PANEL (05/12/2021 4:00 AM CALIBRATION TESTER) [facility] Signature Glucose 105 70 - 105 mg/dL 05/12/2021 10:54 AM [facility] Sodium 140 136 - 145 mmol/L 05/12/2021 10:54 AM [facility] Potassium 5.1 3.5 - 5.1 mmol/L 05/12/2021 10:54 AM [facility] Chloride 102 98 - 107 mmol/L 05/12/2021 10:54 AM [facility] CO2 20(L) 23 - 31 mmol/L 05/12/2021 10:54 AM [facility] Calcium 9.9 8.4 - 10.4 mg/dL 05/12/2021 10:54 AM [facility] Anion Gap 18 8 - 18 mmol/L 05/12/2021 10:54 AM [facility] BUN 34(H) 8.9 - 20.6 mg/dL 05/12/2021 10:54 AM [facility] Creatinine 1.01 0.72 - 1.25 mg/dL 05/12/2021 10:54 AM [facility] Alkaline Phosphatase 109 40 - 150 U/L 05/12/2021 10:54 AM [facility] ALT 40 0 - 61 U/L 05/12/2021 10:54 AM [facility] AST 29 5 - 34 U/L 05/12/2021 10:54 AM [facility] Protein Total 7.8 6.4 - 8.3 gm/dL 05/12/2021 10:54 AM [facility] Albumin 3.8 3.5 - 5.2 gm/dL 05/12/2021 10:54 AM [facility] Bilirubin Total 0.3 0.2 - 1.2 mg/dL 05/12/2021 10:54 AM [facility] eGFR by MDRD >60 >60 mL/min/1.7 3m2 05/12/2021 10:54 AM [facility] eGFR by MDRD >60 >60 mL/min/1.7 3m2 05/12/2021 10:54 AM [facility] Blood BLOOD SPECIMEN / Unknown Venipuncture / Unknown 05/12/2021 4:00 AM [facility] 05/12/2021 9:49 AM [facility] us Lamberto De La Cruz MD LAB - CHEMISTRY ORDERABLES Final Result Performing Organization Address City/State/[facility] Co de Phone Number [facility] [address] [place] [phone] documented in this encounter Visit Diagnoses Not on filedocumented in this encounter Care Teams Roller Bearing Inspector Relationship Specialty Start Date End Date Pepe Martel MD [address] [place] [id number] PCP - General 08/14/16 documented as of this encounter
--- OUTSIDE RECORDS SUMMARY | 2024-12-28 17:49 | XMS_ITS | Encounter Summary ---
Author Organization [facility] Address [address] [place] [address] Care Team Providers Care Appraisal Analyst Name Role Phone Pepe Martel MD Primary Care Provider [phone] Encounter Details Date Type Department Care Team (Late st Contact Info) Description 06/19/2021 Lab Requisition [facility] [address] [place] [address] [place] [address] [place] [address] Social History Tobacco Use Types Packs/Day Years [...] W AUTO DIFFERENTIAL Routine 06/19/2021 4:00 AM WINE PASTEURIZER COMPREHENSIVE METABOLIC PANEL Routine 06/19/2021 4:00 AM WINE PASTEURIZER documented in this encounter Results * (ABNORMAL) COMPREHENSIVE METABOLIC PANEL (06/19/2021 4:00 AM WINE PASTEURIZER) Glucose 132(H) 70 - 105 mg/dL 06/19/2021 10:35 AM [facility] Sodium 141 136 - 145 mmol/L 06/19/2021 10:35 AM WINE PASTEURIZER [facility] Potassium 4.3 3.5 - 5.1 mmol/L 06/19/2021 10:35 AM WINE PASTEURIZER [facility] Chloride 107 98 - 107 mmol/L 06/19/2021 10:35 AM WINE PASTEURIZER [facility] CO2 27 23 - 31 mmol/L 06/19/2021 10:35 AM WINE PASTEURIZER [facility] Calcium 10.0 8.4 - 10.4 mg/dL 06/19/2021 10:35 AM [facility] Anion Gap 7(L) 8 - 18 mmol/L 06/19/2021 10:35 AM [facility] BUN 37(H) 8.9 - 20.6 mg/dL 06/19/2021 10:35 AM [facility] Creatinine 1.07 0.72 - 1.25 mg/dL 06/19/2021 10:35 AM [facility] Alkaline Phosphatase 144 40 - 150 U/L 06/19/2021 10:35 AM [facility] ALT 47 0 - 61 U/L 06/19/2021 10:35 AM [facility] AST 22 5 - 34 U/L 06/19/2021 10:35 AM [facility] Protein Total 8.4(H) 6.4 - 8.3 gm/dL 06/19/2021 10:35 AM [facility] Albumin 3.9 3.5 - 5.2 gm/dL 06/19/2021 10:35 AM [facility] Bilirubin Total 0.2 0.2 - 1.2 mg/dL 06/19/2021 10:35 AM [facility] eGFR by MDRD >60 >60 mL/min/1.7 3m2 06/19/2021 10:35 AM [facility] eGFR by MDRD >60 >60 mL/min/1.7 2 06/19/2021 10:35 AM [facility] Blood BLOOD SPECIMEN / Unknown Venipuncture / Unknown 06/19/2021 4:00 AM WINE PASTEURIZER 06/19/2021 10:13 AM [facility] us Vinicio Quintanilla MD LAB - CHEMISTRY ORDERABLES Final Result [facility] [address] [place] [address] * (ABNORMAL) CBC WITH DIFFERENTIAL (06/19/2021 4:00 AM [facility]) [facility] WBC 9.3 4.4 - 10.7 x10E9/L 06/19/2021 10:20 AM [facility] WBC Corrected 06/19/2021 10:20 AM [facility] RBC 4.26 3.80 - 5.40 x10E12/L 06/19/2021 10:20 AM [facility] Hemoglobin 11.5(L) 12.0 - 17.6 gm/dL 06/19/2021 10:20 AM [facility] Hematocrit 37.1 35.2 - 51.7 % 06/19/2021 10:20 AM [facility] MCV 87.1 80.7 - 98.3 fl 06/19/2021 10:20 AM [facility] MCH 27.0 26.7 - 34.0 pg 06/19/2021 10:20 AM [facility] MCHC 31.0 30.8 - 35.9 gm/dL 06/19/2021 10:20 AM [facility] Platelet Count 492(H) 153 - 416 x10E9/L 06/19/2021 10:20 AM [facility] RDW-CV 12.6 12.1 - 14.9 % 06/19/2021 10:20 AM [facility] MPV 9.8 9.4 - 12.9 fl 06/19/2021 10:20 AM [facility] Neutrophils % 67.7 44.0 - 73.0 % 06/19/2021 10:20 AM [facility] Lymphocytes % 16.9(L) 20.0 - 43.0 % 06/19/2021 10:20 AM [facility] Monocytes % 10.4 5.0 - 13.0 % 06/19/2021 10:20 AM [facility] Eosinophils % 4.2 0.0 - 6.0 % 06/19/2021 10:20 AM [facility] Basophils % 0.5 0.0 - 2.0 % 06/19/2021 10:20 AM [facility] Immature Granulocytes 0.3 0 - 1 % 06/19/2021 10:20 AM [facility] Neutrophil Absolute 6.31 2.01 - 7.14 x10E9/L 06/19/2021 10:20 AM [facility] Lymphocytes Absolute 1.58 1.07 - 3.94 x10E9/L 06/19/2021 10:20 AM [facility] Monocytes Absolute 0.97 0.26 - 1.07 x10E9/L 06/19/2021 10:20 AM [facility] Eosinophils Absolute 0.39 0 - 0.47 x10E9/L 06/19/2021 10:20 AM [facility] Basophils Absolute 0.05 0 - 0.08 x10E9/L 06/19/2021 10:20 AM [facility] Immature Granulocytes Absolute 0.03 0.00 - 0.06 x10E9/L 06/19/2021 10:20 AM WINE PASTEURIZER [facility] nRBC Auto 0 /100 WBC 06/19/2021 10:20 AM WINE PASTEURIZER [facility] Blood BLOOD SPECIMEN / Unknown Venipuncture / Unknown 06/19/2021 4:00 AM WINE PASTEURIZER 06/19/2021 10:13 AM WINE PASTEURIZER us Vinicio Quintanilla MD LAB - HEMATOLOGY ORDERABLES Giselle adams Result [facility] [address] [place] [address] documented in this encounter Visit Diagnoses Not on filedocumented in this encounter Care Teams Appraisal Analyst Relationship Specialty Start Date End Date Pepe Martel MD [address] [place] [address] [address] [place] [address] PCP - General 08/14/16 documented as of this encounter
--- OUTSIDE RECORDS SUMMARY | 2024-12-28 17:49 | XMS_ITS | Encounter Summary ---
Author Organization [facility] Address [address] [place] [address] Care Team Providers Care Sap Gatherer Name Role Phone Pepe Martel MD Primary Care Provider [phone] Encounter Details Date Type Department Care Team (Late st Contact Info) Description 08/04/2021 Lab Requisition [facility] [address] [place] [address] [place] [address] [place] [address] Social History Tobacco Use Types Packs/Day Years [...] CBC WITH DIFFERENTIAL (08/04/2021 5:17 AM CDT) [facility] WBC 8.8 4.4 - 10.7 x10E9/L 08/04/2021 [...] 26.7 - 34.0 pg 08/04/2021 9:06 AM [facility] MCHC 29.3(L) 30.8 - 35.9 gm/dL 08/04/2021 9:06 AM [facility] Platelet Count 482(H) 153 - 416 x10E9/L 08/04/2021 9:06 AM [facility] RDW-CV 15.3(H) 12.1 - 14.9 % 08/04/2021 9:06 AM [facility] MPV 10.6 9.4 - 12.9 fl 08/04/2021 9:06 AM [facility] Neutrophils % 66.9 44.0 - 73.0 % 08/04/2021 9:06 AM [facility] Lymphocytes % 18.5(L) 20.0 - 43.0 % 08/04/2021 9:06 AM [facility] Monocytes % 6.9 5.0 - 13.0 % 08/04/2021 9:06 AM [facility] Eosinophils % 6.9(H) 0.0 - 6.0 % 08/04/2021 9:06 AM [facility] Basophils % 0.5 0.0 - 2.0 % 08/04/2021 9:06 AM [facility] Immature Granulocytes 0.3 0 - 1 % 08/04/2021 9:06 AM [facility] Neutrophil Absolute 5.90 2.01 - 7.14 x10E9/L 08/04/2021 9:06 AM [facility] Lymphocytes Absolute 1.63 1.07 - 3.94 x10E9/L 08/04/2021 9:06 AM [facility] Monocytes Absolute 0.61 0.26 - 1.07 x10E9/L 08/04/2021 9:06 AM [facility] Eosinophils Absolute 0.61(H) 0 - 0.47 x10E9/L 08/04/2021 9:06 AM [facility] Basophils Absolute 0.04 0 - 0.08 x10E9/L 08/04/2021 9:06 AM [facility] Immature Granulocytes Absolute 0.03 0.00 - 0.06 x10E9/L 08/04/2021 9:06 AM CDT [facility] nRBC Auto 0 /100 WBC 08/04/2021 9:06 AM CDT [facility] Blood BLOOD SPECIMEN / Unknown Venipuncture / Unknown 08/04/2021 5:17 AM CDT 08/04/2021 8:45 AM CDT us Vinicio Quintanilla MD LAB - HEMATOLOGY ORDERABLES Giselle l Result Performing Organization Address [facility] Co de Phone Number [facility] [address] [place] [address] [phone] * VANCOMYCIN LEVEL TROUGH (08/04/2021 5:17 AM CDT) Pathologist [facility] Vancomycin Trough 18.6 10.0 - 20.0 ug/mL 08/04/2021 9:28 AM CDT [facility] Blood BLOOD SPECIMEN / Unknown Venipuncture / Unknown 08/04/2021 5:17 AM CDT 08/04/2021 8:45 AM CDT us Vinicio Quintanilla MD LAB - CHEMISTRY ORDERABLES Final Result Performing Organization Address [facility] de Phone Number [facility] [address] [place], [place] [id number] * (ABNORMAL) COMPREHENSIVE METABOLIC PANEL (08/04/2021 5:17 AM CDT) Glucose 123(H) 70 - 105 mg/dL 08/04/2021 9:37 AM CDT [facility] Sodium 148(H) 136 - 145 mmol/L 08/04/2021 9:37 AM CDT [facility] Potassium 4.7 3.5 - 5.1 mmol/L 08/04/2021 9:37 AM CDT [facility] Chloride 111(H) 98 - 107 mmol/L 08/04/2021 9:37 AM CDT [facility] CO2 23 23 - 31 mmol/L 08/04/2021 9:37 AM CDT [facility] Calcium 9.7 8.4 - 10.4 mg/dL 08/04/2021 9:37 AM CDT [facility] Anion Gap 14 8 - 18 mmol/L 08/04/2021 9:37 AM CDT [facility] BUN 24(H) 8.9 - 20.6 mg/dL 08/04/2021 9:37 AM CDT [facility] Creatinine 0.90 0.72 - 1.25 mg/dL 08/04/2021 9:37 AM CDT [facility] Alkaline Phosphatase 119 40 - 150 U/L 08/04/2021 9:37 AM CDT [facility] ALT 18 0 - 61 U/L 08/04/2021 9:37 AM CDT [facility] AST 14 5 - 34 U/L 08/04/2021 9:37 AM CDT [facility] Protein Total 7.1 6.4 - 8.3 gm/dL 08/04/2021 9:37 AM CDT [facility] Albumin 3.3(L) 3.5 - 5.2 gm/dL 08/04/2021 9:37 AM CDT [facility] Bilirubin Total 0.3 0.2 - 1.2 mg/dL 08/04/2021 9:37 AM CDT [facility] eGFR by CKD-EPI >90 >=90 mL/min/1.7 3 m2 08/04/2021 9:37 AM CDT [facility] Blood BLOOD SPECIMEN / Unknown Venipuncture / Unknown 08/04/2021 5:17 AM CDT 08/04/2021 8:45 AM CDT Narrative [facility] - 08/04/2021 9:37 AM CDT eGFR result was calculated using the updated CKD-EPI Creatinine Equations (2020). Prior to go live 2021 the eGFR was calculated using the MDRD calculation. Please note Reference Range change. us Vinicio Quintanilla MD LAB - CHEMISTRY ORDERABLES Final Result [facility] [address] [place], [place] [id number] documented in this encounter Visit Diagnoses Not on filedocumented in this encounter Care Teams Sap Gatherer Relationship Specialty Start Date End Date Pepe Martel MD [address] [place] [id number] PCP - General 08/14/16 documented as of this encounter
--- OUTSIDE RECORDS SUMMARY | 2024-12-28 17:49 | XMS_ITS | Encounter Summary ---
Author Organization [facility] Address [address] [place] [address] Care Team Providers Care Oil Well Perforator Operator Name Role Phone Pepe Martel MD Primary Care Provider Encounter Details Date Type Department Care Team (Late st Contact Info) Description 06/12/2021 Lab Requisition [facility] [address] [place] [address] Lamberto De La Cruz MD [address] [facility] [address] [place] [address] Social History Tobacco Use Types [...] W AUTO DIFFERENTIAL STAT 06/12/2021 3:30 AM CADWORX PIPING DESIGNER COMPREHENSIVE METABOLIC PANEL STAT 06/12/2021 3:30 AM CADWORX PIPING DESIGNER documented in this encounter Results * (ABNORMAL) CBC WITH DIFFERENTIAL (06/12/2021 3:30 AM CADWORX PIPING DESIGNER) WBC 9.4 4.4 - 10.7 x10E9/L 06/12/2021 9:40 AM CADWORX PIPING DESIGNER [facility] WBC Corrected 06/12/2021 9:40 AM CADWORX PIPING DESIGNER [facility] RBC 3.97 3.80 - 5.40 x10E12/L 06/12/2021 9:40 AM CADWORX PIPING DESIGNER [facility] Hemoglobin 10.8(L) 12.0 - 17.6 gm/dL 06/12/2021 9:40 AM CADWORX PIPING DESIGNER [facility] Hematocrit 34.2(L) 35.2 - 51.7 % 06/12/2021 9:40 AM CADWORX PIPING DESIGNER [facility] MCV 86.1 80.7 - 98.3 fl 06/12/2021 9:40 AM CADWORX PIPING DESIGNER [facility] MCH 27.2 26.7 - 34.0 pg 06/12/2021 9:40 AM CADWORX PIPING DESIGNER [facility] MCHC 31.6 30.8 - 35.9 gm/dL 06/12/2021 9:40 AM [facility] Platelet Count 469(H) 153 - 416 x10E9/L 06/12/2021 9:40 AM [facility] RDW-CV 12.3 12.1 - 14.9 % 06/12/2021 9:40 AM [facility] MPV 9.5 9.4 - 12.9 fl 06/12/2021 9:40 AM [facility] Neutrophils % 71.0 44.0 - 73.0 % 06/12/2021 9:40 AM [facility] Lymphocytes % 16.0(L) 20.0 - 43.0 % 06/12/2021 9:40 AM [facility] Monocytes % 9.4 5.0 - 13.0 % 06/12/2021 9:40 AM [facility] Eosinophils % 3.1 0.0 - 6.0 % 06/12/2021 9:40 AM [facility] Basophils % 0.3 0.0 - 2.0 % 06/12/2021 9:40 AM [facility] Immature Granulocytes 0.2 0 - 1 % 06/12/2021 9:40 AM [facility] Neutrophil Absolute 6.68 2.01 - 7.14 x10E9/L 06/12/2021 9:40 AM [facility] Lymphocytes Absolute 1.51 1.07 - 3.94 x10E9/L 06/12/2021 9:40 AM [facility] Monocytes Absolute 0.88 0.26 - 1.07 x10E9/L 06/12/2021 9:40 AM [facility] Eosinophils Absolute 0.29 0 - 0.47 x10E9/L 06/12/2021 9:40 AM [facility] Basophils Absolute 0.03 0 - 0.08 x10E9/L 06/12/2021 9:40 AM [facility] Immature Granulocytes Absolute 0.02 0.00 - 0.06 x10E9/L 06/12/2021 9:40 AM [facility] nRBC Auto 0 /100 WBC 06/12/2021 9:40 AM [facility] Blood BLOOD SPECIMEN / Unknown Venipuncture / Unknown 06/12/2021 3:30 AM CADWORX PIPING DESIGNER 06/12/2021 8:38 AM [facility] us Lamberto De La Cruz MD LAB - HEMATOLOGY ORDERABLES Giselle bryan Result [facility] [address] [place] [address] * (ABNORMAL) COMPREHENSIVE METABOLIC PANEL (06/12/2021 3:30 AM [facility]) Glucose 126(H) 70 - 105 mg/dL 06/12/2021 10:03 AM [facility] Sodium 139 136 - 145 mmol/L 06/12/2021 10:03 AM [facility] Potassium 4.7 3.5 - 5.1 mmol/L 06/12/2021 10:03 AM [facility] Chloride 103 98 - 107 mmol/L 06/12/2021 10:03 AM [facility] CO2 23 23 - 31 mmol/L 06/12/2021 10:03 AM [facility] Calcium 9.7 8.4 - 10.4 mg/dL 06/12/2021 10:03 AM [facility] Anion Gap 13 8 - 18 mmol/L 06/12/2021 10:03 AM [facility] BUN 35(H) 8.9 - 20.6 mg/dL 06/12/2021 10:03 AM [facility] Creatinine 0.94 0.72 - 1.25 mg/dL 06/12/2021 10:03 AM [facility] Alkaline Phosphatase 155(H) 40 - 150 U/L 06/12/2021 10:03 AM [facility] ALT 40 0 - 61 U/L 06/12/2021 10:03 AM [facility] AST 23 5 - 34 U/L 06/12/2021 10:03 AM [facility] Protein Total 8.1 6.4 - 8.3 gm/dL 06/12/2021 10:03 AM [facility] Albumin 3.5 3.5 - 5.2 gm/dL 06/12/2021 10:03 AM [facility] Bilirubin Total 0.2 0.2 - 1.2 mg/dL 06/12/2021 10:03 AM [facility] eGFR by MDRD >60 >60 mL/min/1.7 3m2 06/12/2021 10:03 AM CADWORX PIPING DESIGNER [facility] eGFR by MDRD >60 >60 mL/min/1.7 3m2 06/12/2021 10:03 AM [employer] PIPING DESIGNER [facility] Blood BLOOD SPECIMEN / Unknown Venipuncture / Unknown 06/12/2021 3:30 AM [employer] PIPING DESIGNER 06/12/2021 8:38 AM [employer] PIPING DESIGNER Lamberto De La Cruz MD LAB - CHEMISTRY ORDERABLES Final Result Performing Organization Address City/State/[place] Co de Phone Number [facility] [address] [place] [address] documented in this encounter Visit Diagnoses Not on filedocumented in this encounter Care Teams Oil Well Perforator Operator Relationship Specialty Start Date End Date Pepe Martel MD [address] [place] [id number] PCP - General 08/14/16 documented as of this encounter
--- OUTSIDE RECORDS SUMMARY | 2024-12-28 17:49 | XMS_ITS | Encounter Summary ---
Author Organization [facility] Address [address] [place] [address] Care Team Providers Care Gambling Floor Supervisor Name Role Phone Pepe Martel MD Primary Care Provider [phone] Encounter Details Date Type Department Care Team (Late st Contact Info) Description 07/21/2021 Lab Requisition [facility] [address] [place] [address] [place] [address] [place] [address] Social History Tobacco Use Types Packs/Day Years [...] W AUTO DIFFERENTIAL STAT 07/21/2021 2:45 AM UTILIZATION COORDINATOR COMPREHENSIVE METABOLIC PANEL STAT 07/21/2021 2:45 AM UTILIZATION COORDINATOR documented in this encounter Results * (ABNORMAL) CBC WITH DIFFERENTIAL (07/21/2021 2:45 AM UTILIZATION COORDINATOR) WBC 10.4 4.4 - 10.7 x10E9/L 07/21/2021 9:17 AM UTILIZATION COORDINATOR [facility] WBC Corrected 07/21/2021 9:17 AM UTILIZATION COORDINATOR [facility] RBC 4.51 3.80 - 5.40 x10E12/L 07/21/2021 9:17 AM UTILIZATION COORDINATOR [facility] Hemoglobin 11.4(L) 12.0 - 17.6 gm/dL 07/21/2021 9:17 AM UTILIZATION COORDINATOR [facility] Hematocrit 37.4 35.2 - 51.7 % 07/21/2021 9:17 AM UTILIZATION COORDINATOR [facility] MCV 82.9 80.7 - 98.3 fl 07/21/2021 9:17 AM UTILIZATION COORDINATOR [facility] MCH 25.3(L) 26.7 - 34.0 pg 07/21/2021 9:17 AM UTILIZATION COORDINATOR [facility] MCHC 30.5(L) 30.8 - 35.9 gm/dL 07/21/2021 9:17 AM [facility] Platelet Count 531(H) 153 - 416 x10E9/L 07/21/2021 9:17 AM [facility] RDW-CV 13.9 12.1 - 14.9 % 07/21/2021 9:17 AM [facility] MPV 9.4 9.4 - 12.9 fl 07/21/2021 9:17 AM [facility] Neutrophils % 65.4 44.0 - 73.0 % 07/21/2021 9:17 AM [facility] Lymphocytes % 20.4 20.0 - 43.0 % 07/21/2021 9:17 AM [facility] Monocytes % 10.2 5.0 - 13.0 % 07/21/2021 9:17 AM [facility] Eosinophils % 3.1 0.0 - 6.0 % 07/21/2021 9:17 AM [facility] Basophils % 0.4 0.0 - 2.0 % 07/21/2021 9:17 AM [facility] Immature Granulocytes 0.5 0 - 1 % 07/21/2021 9:17 AM [facility] Neutrophil Absolute 6.83 2.01 - 7.14 x10E9/L 07/21/2021 9:17 AM [facility] Lymphocytes Absolute 2.13 1.07 - 3.94 x10E9/L 07/21/2021 9:17 AM [facility] Monocytes Absolute 1.07 0.26 - 1.07 x10E9/L 07/21/2021 9:17 AM [facility] Eosinophils Absolute 0.32 0 - 0.47 x10E9/L 07/21/2021 9:17 AM [facility] Basophils Absolute 0.04 0 - 0.08 x10E9/L 07/21/2021 9:17 AM [facility] Immature Granulocytes Absolute 0.05 0.00 - 0.06 x10E9/L 07/21/2021 9:17 AM [facility] nRBC Auto 0 /100 WBC 07/21/2021 9:17 AM [facility] Blood BLOOD SPECIMEN / Unknown Venipuncture / Unknown 07/21/2021 2:45 AM UTILIZATION COORDINATOR 07/21/2021 9:01 AM UTILIZATION COORDINATOR us Vinicio Quintanilla MD LAB - HEMATOLOGY ORDERABLES Giselle adams Result [facility] [address] [place] [address] * (ABNORMAL) COMPREHENSIVE METABOLIC PANEL (07/21/2021 2:45 AM UTILIZATION COORDINATOR) Glucose 87 70 - 105 mg/dL 07/21/2021 9:28 AM [facility] Sodium 140 136 - 145 mmol/L 07/21/2021 9:28 AM [facility] Potassium 5.4(H) 3.5 - 5.1 mmol/L 07/21/2021 9:28 AM [facility] Chloride 102 98 - 107 mmol/L 07/21/2021 9:28 AM [facility] CO2 24 23 - 31 mmol/L 07/21/2021 9:28 AM [facility] Calcium 10.1 8.4 - 10.4 mg/dL 07/21/2021 9:28 AM [facility] Anion Gap 14 8 - 18 mmol/L 07/21/2021 9:28 AM [facility] BUN 31(H) 8.9 - 20.6 mg/dL 07/21/2021 9:28 AM [facility] Creatinine 1.04 0.72 - 1.25 mg/dL 07/21/2021 9:28 AM [facility] Alkaline Phosphatase 193(H) 40 - 150 U/L 07/21/2021 9:28 AM [facility] ALT 35 0 - 61 U/L 07/21/2021 9:28 AM [facility] AST 19 5 - 34 U/L 07/21/2021 9:28 AM [facility] Protein Total 8.0 6.4 - 8.3 gm/dL 07/21/2021 9:28 AM [facility] Albumin 3.8 3.5 - 5.2 gm/dL 07/21/2021 9:28 AM [facility] Bilirubin Total 0.3 0.2 - 1.2 mg/dL 07/21/2021 9:28 AM [facility] eGFR by CKD-EPI >90 >=90 mL/min/1.7 3 m2 07/21/2021 9:28 AM UTILIZATION COORDINATOR [facility] Blood BLOOD SPECIMEN / Unknown Venipuncture / Unknown 07/21/2021 2:45 AM UTILIZATION COORDINATOR 07/21/2021 9:01 AM UTILIZATION COORDINATOR Narrative [facility] - 07/21/2021 9:28 AM UTILIZATION COORDINATOR eGFR result was calculated using the updated CKD-EPI Creatinine Equations (2020). Prior to go live 2021 the eGFR was calculated using the MDRD calculation. Please note Reference Range change. us Vinicio Quintanilla MD LAB - CHEMISTRY ORDERABLES Final Result [facility] [address] [place] [address] documented in this encounter Visit Diagnoses Not on filedocumented in this encounter Care Teams Gambling Floor Supervisor Relationship Specialty Start Date End Date Pepe Martel MD [address] [place] [id number] PCP - General 08/14/16 documented as of this encounter
--- OUTSIDE RECORDS SUMMARY | 2024-12-28 17:49 | XMS_ITS | Encounter Summary ---
Author Organization [facility] Address [address] [place] [address] Care Team Providers Care Color Shop Helper Name Role Phone Pepe Martel MD Primary Care Provider Encounter Details Date Type Department Care Team (Late st Contact Info) Description 07/28/2021 Lab Requisition [facility] [address] [place] [address] [place] [address] [place] [address] Social History Tobacco Use Types Packs/Day Years [...] - 35.9 gm/dL 07/28/2021 8:35 AM CDT [facility] Platelet Count 508(H) 153 - 416 x10E9/L 07/28/2021 8:35 AM CDT [facility] RDW-CV 14.6 12.1 - 14.9 % 07/28/2021 8:35 AM CDT [facility] MPV 9.9 9.4 - 12.9 fl 07/28/2021 8:35 AM CDT [facility] Neutrophils % 68.0 44.0 - 73.0 % 07/28/2021 8:35 AM CDT [facility] Lymphocytes % 19.6(L) 20.0 - 43.0 % 07/28/2021 8:35 AM CDT [facility] Monocytes % 9.0 5.0 - 13.0 % 07/28/2021 8:35 AM CDT [facility] Eosinophils % 2.8 0.0 - 6.0 % 07/28/2021 8:35 AM CDT [facility] Basophils % 0.3 0.0 - 2.0 % 07/28/2021 8:35 AM CDT [facility] Immature Granulocytes 0.3 0 - 1 % 07/28/2021 8:35 AM CDT [facility] Neutrophil Absolute 7.62(H) 2.01 - 7.14 x10E9/L 07/28/2021 8:35 AM CDT [facility] Lymphocytes Absolute 2.19 1.07 - 3.94 x10E9/L 07/28/2021 8:35 AM CDT [facility] Monocytes Absolute 1.01 0.26 - 1.07 x10E9/L 07/28/2021 8:35 AM CDT [facility] Eosinophils Absolute 0.31 0 - 0.47 x10E9/L 07/28/2021 8:35 AM CDT [facility] Basophils Absolute 0.03 0 - 0.08 x10E9/L 07/28/2021 8:35 AM CDT [facility] Immature Granulocytes Absolute 0.03 0.00 - 0.06 x10E9/L 07/28/2021 8:35 AM CDT [facility] nRBC Auto 0 /100 WBC 07/28/2021 8:35 AM CDT [facility] Blood BLOOD SPECIMEN / Unknown Venipuncture / Unknown 07/28/2021 4:50 AM CDT 07/28/2021 8:27 AM CDT us Vinicio Quintanilla MD LAB - HEMATOLOGY ORDERABLES Giselle bryan Result [facility] [address] [place] [address] * (ABNORMAL) COMPREHENSIVE METABOLIC PANEL (07/28/2021 4:50 AM CDT) Glucose 95 70 - 105 mg/dL 07/28/2021 8:59 AM CDT [facility] Sodium 145 136 - 145 mmol/L 07/28/2021 8:59 AM CDT [facility] Potassium 5.1 3.5 - 5.1 mmol/L 07/28/2021 8:59 AM CDT [facility] Chloride 105 98 - 107 mmol/L 07/28/2021 8:59 AM CDT [facility] CO2 28 23 - 31 mmol/L 07/28/2021 8:59 AM CDT [facility] Calcium 10.6(H) 8.4 - 10.4 mg/dL 07/28/2021 8:59 AM CDT [facility] Anion Gap 12 8 - 18 mmol/L 07/28/2021 8:59 AM CDT [facility] BUN 32(H) 8.9 - 20.6 mg/dL 07/28/2021 8:59 AM CDT [facility] Creatinine 0.97 0.72 - 1.25 mg/dL 07/28/2021 8:59 AM CDT [facility] Alkaline Phosphatase 196(H) 40 - 150 U/L 07/28/2021 8:59 AM CDT [facility] ALT 30 0 - 61 U/L 07/28/2021 8:59 AM CDT [facility] AST 15 5 - 34 U/L 07/28/2021 8:59 AM CDT [facility] Protein Total 8.2 6.4 - 8.3 gm/dL 07/28/2021 8:59 AM CDT [facility] Albumin 3.9 3.5 - 5.2 gm/dL 07/28/2021 8:59 AM CDT [facility] Bilirubin Total 0.5 0.2 - 1.2 mg/dL 07/28/2021 8:59 AM CDT [facility] eGFR by CKD-EPI >90 >=90 mL/min/1.7 3 m2 07/28/2021 8:59 AM CDT [facility] Blood BLOOD SPECIMEN / Unknown Venipuncture / Unknown 07/28/2021 4:50 AM CDT 07/28/2021 8:27 AM CDT Narrative [facility] - 07/28/2021 8:59 AM CDT eGFR result was calculated using the updated CKD-EPI Creatinine Equations (2020). Prior to go live 2021 the eGFR was calculated using the MDRD calculation. Please note Reference Range change. us Vinicio Quintanilla MD LAB - CHEMISTRY ORDERABLES Final Result Performing Organization Address City/State/[facility] Co de Phone Number [facility] [address] [place] [address] documented in this encounter Visit Diagnoses Not on filedocumented in this encounter Care Teams Color Shop Helper Relationship Specialty Start Date End Date Pepe Martel MD [address] [place] [id number] PCP - General 08/14/16 documented as of this encounter
--- OUTSIDE RECORDS SUMMARY | 2024-12-28 17:49 | XMS_ITS | Encounter Summary ---
Author Organization [facility] Address [address] [place] [address] Care Team Providers Care Free Lance Artist Name Role Phone Pepe Martel MD Primary Care Provider [phone] Encounter Details Date Type Department Care Team (Late st Contact Info) Description 07/07/2021 Lab Requisition [facility] [address] [place] [address] [place] [address] [place] [address] Social History Tobacco Use Types Packs/Day Years [...] W AUTO DIFFERENTIAL STAT 07/07/2021 4:00 AM DRYING SUPERVISOR COMPREHENSIVE METABOLIC PANEL STAT 07/07/2021 4:00 AM DRYING SUPERVISOR documented in this encounter Results * (ABNORMAL) CBC WITH DIFFERENTIAL (07/07/2021 4:00 AM DRYING SUPERVISOR) WBC 11.3(H) 4.4 - 10.7 x10E9/L 07/07/2021 10:39 AM DRYING SUPERVISOR [facility] WBC Corrected 07/07/2021 10:39 AM DRYING SUPERVISOR [facility] RBC 4.53 3.80 - 5.40 x10E12/L 07/07/2021 10:39 AM DRYING SUPERVISOR [facility] Hemoglobin 11.9(L) 12.0 - 17.6 gm/dL 07/07/2021 10:39 AM DRYING SUPERVISOR [facility] Hematocrit 38.5 35.2 - 51.7 % 07/07/2021 10:39 AM DRYING SUPERVISOR [facility] MCV 85.0 80.7 - 98.3 fl 07/07/2021 10:39 AM DRYING SUPERVISOR [facility] MCH 26.3(L) 26.7 - 34.0 pg 07/07/2021 10:39 AM DRYING SUPERVISOR [facility] MCHC 30.9 30.8 - 35.9 gm/dL 07/07/2021 10:39 AM [facility] Platelet Count 385 153 - 416 x10E9/L 07/07/2021 10:39 AM [facility] RDW-CV 13.2 12.1 - 14.9 % 07/07/2021 10:39 AM [facility] MPV 10.7 9.4 - 12.9 fl 07/07/2021 10:39 AM [facility] Neutrophils % 68.6 44.0 - 73.0 % 07/07/2021 10:39 AM [facility] Lymphocytes % 18.3(L) 20.0 - 43.0 % 07/07/2021 10:39 AM [facility] Monocytes % 7.7 5.0 - 13.0 % 07/07/2021 10:39 AM [facility] Eosinophils % 4.6 0.0 - 6.0 % 07/07/2021 10:39 AM [facility] Basophils % 0.4 0.0 - 2.0 % 07/07/2021 10:39 AM [facility] Immature Granulocytes 0.4 0 - 1 % 07/07/2021 10:39 AM [facility] Neutrophil Absolute 7.80(H) 2.01 - 7.14 x10E9/L 07/07/2021 10:39 AM [facility] Lymphocytes Absolute 2.07 1.07 - 3.94 x10E9/L 07/07/2021 10:39 AM [facility] Monocytes Absolute 0.87 0.26 - 1.07 x10E9/L 07/07/2021 10:39 AM [facility] Eosinophils Absolute 0.52(H) 0 - 0.47 x10E9/L 07/07/2021 10:39 AM [facility] Basophils Absolute 0.04 0 - 0.08 x10E9/L 07/07/2021 10:39 AM [facility] Immature Granulocytes Absolute 0.04 0.00 - 0.06 x10E9/L 07/07/2021 10:39 AM [facility] nRBC Auto 0 /100 WBC 07/07/2021 10:39 AM [facility] Blood BLOOD SPECIMEN / Unknown Venipuncture / Unknown 07/07/2021 4:00 AM DRYING SUPERVISOR 07/07/2021 9:27 AM [facility] us Vinicio Quintanilla MD LAB - HEMATOLOGY ORDERABLES Giselle adams Result [facility] [address] [place] [address] * (ABNORMAL) COMPREHENSIVE METABOLIC PANEL (07/07/2021 4:00 AM [facility]) Glucose 111(H) 70 - 105 mg/dL 07/07/2021 10:48 AM [facility] Sodium 143 136 - 145 mmol/L 07/07/2021 10:48 AM [facility] Potassium 4.4 3.5 - 5.1 mmol/L 07/07/2021 10:48 AM [facility] Chloride 103 98 - 107 mmol/L 07/07/2021 10:48 AM [facility] CO2 28 23 - 31 mmol/L 07/07/2021 10:48 AM [facility] Calcium 10.1 8.4 - 10.4 mg/dL 07/07/2021 10:48 AM [facility] Anion Gap 12 8 - 18 mmol/L 07/07/2021 10:48 AM [facility] BUN 35(H) 8.9 - 20.6 mg/dL 07/07/2021 10:48 AM [facility] Creatinine 0.96 0.72 - 1.25 mg/dL 07/07/2021 10:48 AM [facility] Alkaline Phosphatase 139 40 - 150 U/L 07/07/2021 10:48 AM [facility] ALT 35 0 - 61 U/L 07/07/2021 10:48 AM [facility] AST 17 5 - 34 U/L 07/07/2021 10:48 AM [facility] Protein Total 7.8 6.4 - 8.3 gm/dL 07/07/2021 10:48 AM [facility] Albumin 3.9 3.5 - 5.2 gm/dL 07/07/2021 10:48 AM [facility] Bilirubin Total 0.3 0.2 - 1.2 mg/dL 07/07/2021 10:48 AM [facility] eGFR by MDRD >60 >60 mL/min/1.7 3m2 07/07/2021 10:48 AM DRYING SUPERVISOR [facility] eGFR by MDRD >60 >60 mL/min/1.7 3m2 07/07/2021 10:48 AM DRYING SUPERVISOR [facility] Blood BLOOD SPECIMEN / Unknown Venipuncture / Unknown 07/07/2021 4:00 AM DRYING SUPERVISOR 07/07/2021 9:27 AM DRYING SUPERVISOR us Vinicio Quintanilla MD LAB - CHEMISTRY ORDERABLES Final Result [facility] [address] [place], [place] [id number] documented in this encounter Visit Diagnoses Not on filedocumented in this encounter Care Teams Free Lance Artist Relationship Specialty Start Date End Date Pepe Martel MD [address] [place] [address] [address] [place] [address] PCP - General 08/14/16 documented as of this encounter
--- OUTSIDE RECORDS SUMMARY | 2024-12-28 17:49 | XMS_ITS | Encounter Summary ---
Author Organization [facility] Address [address] [place] [address] Care Team Providers Care Russian History Professor Name Role Phone Pepe Martel MD Primary Care Provider [phone] Encounter Details Date Type Department Care Team (Late st Contact Info) Description 06/30/2021 Lab Requisition [facility] [address] [place] [address] [place] [address] [place] [address] Social History Tobacco Use Types Packs/Day Years [...] W AUTO DIFFERENTIAL STAT 06/30/2021 2:30 AM LAND MEASURER COMPREHENSIVE METABOLIC PANEL STAT 06/30/2021 2:30 AM LAND MEASURER documented in this encounter Results * (ABNORMAL) CBC WITH DIFFERENTIAL (06/30/2021 2:30 AM LAND MEASURER) WBC 9.5 4.4 - 10.7 x10E9/L 06/30/2021 9:07 AM LAND MEASURER [facility] WBC Corrected 06/30/2021 9:07 AM LAND MEASURER [facility] RBC 4.45 3.80 - 5.40 x10E12/L 06/30/2021 9:07 AM LAND MEASURER [facility] Hemoglobin 11.8(L) 12.0 - 17.6 gm/dL 06/30/2021 9:07 AM LAND MEASURER [facility] Hematocrit 37.1 35.2 - 51.7 % 06/30/2021 9:07 AM LAND MEASURER [facility] MCV 83.4 80.7 - 98.3 fl 06/30/2021 9:07 AM LAND MEASURER [facility] MCH 26.5(L) 26.7 - 34.0 pg 06/30/2021 9:07 AM LAND MEASURER [facility] MCHC 31.8 30.8 - 35.9 gm/dL 06/30/2021 9:07 AM LAND MEASURER [facility] Platelet Count 468(H) 153 - 416 x10E9/L 06/30/2021 9:[address] [facility] RDW-CV 12.8 12.1 - 14.9 % 06/30/2021 9:[address] [facility] MPV 10.1 9.4 - 12.9 fl 06/30/2021 9:[address] [facility] Neutrophils % 63.1 44.0 - 73.0 % 06/30/2021 9:[address] [facility] Lymphocytes % 24.4 20.0 - 43.0 % 06/30/2021 9:[address] [facility] Monocytes % 8.0 5.0 - 13.0 % 06/30/2021 9:[address] [facility] Eosinophils % 3.6 0.0 - 6.0 % 06/30/2021 9:[address] [facility] Basophils % 0.5 0.0 - 2.0 % 06/30/2021 9:[address] [facility] Immature Granulocytes 0.4 0 - 1 % 06/30/2021 9:[address] [facility] Neutrophil Absolute 6.00 2.01 - 7.14 x10E9/L 06/30/2021 9:[address] [facility] Lymphocytes Absolute 2.32 1.07 - 3.94 x10E9/L 06/30/2021 9:[address] [facility] Monocytes Absolute 0.76 0.26 - 1.07 x10E9/L 06/30/2021 9:[address] [facility] Eosinophils Absolute 0.34 0 - 0.47 x10E9/L 06/30/2021 9:[address] [facility] Basophils Absolute 0.05 0 - 0.08 x10E9/L 06/30/2021 9:[address] [facility] Immature Granulocytes Absolute 0.04 0.00 - 0.06 x10E9/L 06/30/2021 9:[address] [facility] nRBC Auto 0 /100 WBC 06/30/2021 9:[address] [facility] Blood BLOOD SPECIMEN / Unknown Venipuncture / Unknown 06/30/2021 2:30 AM LAND MEASURER 06/30/2021 8:35 AM LAND MEASURER us Vinicio Quintanilla MD LAB - HEMATOLOGY ORDERABLES Giselle l Result [facility] [address] [place] [address] * (ABNORMAL) COMPREHENSIVE METABOLIC PANEL (06/30/2021 2:30 AM LAND MEASURER) Glucose 107(H) 70 - 105 mg/dL 06/30/2021 9:[address] [facility] Sodium 141 136 - 145 mmol/L 06/30/2021 9:[address] [facility] Potassium 4.8 3.5 - 5.1 mmol/L 06/30/2021 9:[address] [facility] Chloride 102 98 - 107 mmol/L 06/30/2021 9:[address] [facility] CO2 27 23 - 31 mmol/L 06/30/2021 9:[address] [facility] Calcium 10.0 8.4 - 10.4 mg/dL 06/30/2021 9:[address] [facility] Anion Gap 12 8 - 18 mmol/L 06/30/2021 9:[address] [facility] BUN 31(H) 8.9 - 20.6 mg/dL 06/30/2021 9:[address] [facility] Creatinine 1.06 0.72 - 1.25 mg/dL 06/30/2021 9:[address] [facility] Alkaline Phosphatase 143 40 - 150 U/L 06/30/2021 9:[address] [facility] ALT 38 0 - 61 U/L 06/30/2021 9:[address] [facility] AST 17 5 - 34 U/L 06/30/2021 9:[address] [facility] Protein Total 8.1 6.4 - 8.3 gm/dL 06/30/2021 9:[address] [facility] Albumin 3.9 3.5 - 5.2 gm/dL 06/30/2021 9:[address] [facility] Bilirubin Total 0.3 0.2 - 1.2 mg/dL 06/30/2021 9:[address] [facility] eGFR by MDRD >60 >60 mL/min/1.7 3m2 06/30/2021 9:43 AM LAND MEASURER [facility] eGFR by MDRD >60 >60 mL/min/1.7 3m2 06/30/2021 9:43 AM LAND MEASURER [facility] Blood BLOOD SPECIMEN / Unknown Venipuncture / Unknown 06/30/2021 2:30 AM LAND MEASURER 06/30/2021 8:35 AM LAND MEASURER us Vinicio Quintanilla MD LAB - CHEMISTRY ORDERABLES Final Result Performing Organization Address City/State/[facility] Co de Phone Number [facility] [address] [place] [address] documented in this encounter Visit Diagnoses Not on filedocumented in this encounter Care Teams Russian History Professor Relationship Specialty Start Date End Date Pepe Martel MD [address] [place] [address] [address] [place] [address] PCP - General 08/14/16 documented as of this encounter
--- OUTSIDE RECORDS SUMMARY | 2024-12-28 17:49 | XMS_ITS | Encounter Summary ---
Author Organization [facility] Address [address] [place] [address] Care Team Providers Care Food Beverage Supervisor Name Role Phone Pepe Martel MD Primary Care Provider [phone] Encounter Details Date Type Department Care Team (Late st Contact Info) Description 04/24/2021 Lab Requisition [facility] [address] [place] [address] Lamberto De La Cruz MD [address] [facility] [address] [place] [address] Social History Tobacco Use Types [...] W AUTO DIFFERENTIAL STAT 04/24/2021 3:30 AM FLEET OPERATIONS MANAGER COMPREHENSIVE METABOLIC PANEL STAT 04/24/2021 3:30 AM FLEET OPERATIONS MANAGER documented in this encounter Results * (ABNORMAL) CBC WITH DIFFERENTIAL (04/24/2021 3:30 AM FLEET OPERATIONS MANAGER) WBC 7.7 4.4 - 10.7 x10E9/L 04/24/2021 11:28 AM FLEET OPERATIONS MANAGER [facility] WBC Corrected 04/24/2021 11:28 AM FLEET OPERATIONS MANAGER [facility] RBC 4.09 3.80 - 5.40 x10E12/L 04/24/2021 11:28 AM FLEET OPERATIONS MANAGER [facility] Hemoglobin 11.5(L) 12.0 - 17.6 gm/dL 04/24/2021 11:28 AM FLEET OPERATIONS MANAGER [facility] Hematocrit 37.1 35.2 - 51.7 % 04/24/2021 11:28 AM FLEET OPERATIONS MANAGER [facility] MCV 90.7 80.7 - 98.3 fl 04/24/2021 11:28 AM FLEET OPERATIONS MANAGER [facility] MCH 28.1 26.7 - 34.0 pg 04/24/2021 11:28 AM FLEET OPERATIONS MANAGER [facility] MCHC 31.0 30.8 - 35.9 gm/dL 04/24/2021 11:28 AM FLEET OPERATIONS MANAGER [facility] Platelet Count 403 153 - 416 x10E9/L 04/24/2021 11:28 AM [facility] RDW-CV 14.0 12.1 - 14.9 % 04/24/2021 11:28 AM [facility] MPV 10.3 9.4 - 12.9 fl 04/24/2021 11:28 AM [facility] Neutrophils % 66.7 44.0 - 73.0 % 04/24/2021 11:28 AM [facility] Lymphocytes % 15.7(L) 20.0 - 43.0 % 04/24/2021 11:28 AM [facility] Monocytes % 14.0(H) 5.0 - 13.0 % 04/24/2021 11:28 AM [facility] Eosinophils % 3.0 0.0 - 6.0 % 04/24/2021 11:28 AM [facility] Basophils % 0.5 0.0 - 2.0 % 04/24/2021 11:28 AM [facility] Immature Granulocytes 0.1 0 - 1 % 04/24/2021 11:28 AM [facility] Neutrophil Absolute 5.13 2.01 - 7.14 x10E9/L 04/24/2021 11:28 AM [facility] Lymphocytes Absolute 1.21 1.07 - 3.94 x10E9/L 04/24/2021 11:28 AM [facility] Monocytes Absolute 1.08(H) 0.26 - 1.07 x10E9/L 04/24/2021 11:28 AM [facility] Eosinophils Absolute 0.23 0 - 0.47 x10E9/L 04/24/2021 11:28 AM [facility] Basophils Absolute 0.04 0 - 0.08 x10E9/L 04/24/2021 11:28 AM [facility] Immature Granulocytes Absolute 0.01 0.00 - 0.06 x10E9/L 04/24/2021 11:28 AM [facility] nRBC Auto 0 /100 WBC 04/24/2021 11:28 AM [facility] Blood BLOOD SPECIMEN / Unknown Venipuncture / Unknown 04/24/2021 3:30 AM FLEET OPERATIONS MANAGER 04/24/2021 11:01 AM FLEET OPERATIONS MANAGER us Lamberto De La Cruz MD LAB - HEMATOLOGY ORDERABLES Giselle bryan Result [facility] [address] [place] [address] * (ABNORMAL) COMPREHENSIVE METABOLIC PANEL (04/24/2021 3:30 AM FLEET OPERATIONS MANAGER) Glucose 108(H) 70 - 105 mg/dL 04/24/2021 11:47 AM [facility] Sodium 139 136 - 145 mmol/L 04/24/2021 11:47 AM [facility] Potassium 4.7 3.5 - 5.1 mmol/L 04/24/2021 11:47 AM [facility] Chloride 104 98 - 107 mmol/L 04/24/2021 11:47 AM [facility] CO2 20(L) 23 - 31 mmol/L 04/24/2021 11:47 AM [facility] Calcium 9.9 8.4 - 10.4 mg/dL 04/24/2021 11:47 AM [facility] Anion Gap 15 8 - 18 mmol/L 04/24/2021 11:47 AM [facility] BUN 28(H) 8.9 - 20.6 mg/dL 04/24/2021 11:47 AM [facility] Creatinine 0.95 0.72 - 1.25 mg/dL 04/24/2021 11:47 AM [facility] Alkaline Phosphatase 86 40 - 150 U/L 04/24/2021 11:47 AM [facility] ALT 24 0 - 61 U/L 04/24/2021 11:47 AM [facility] AST 25 5 - 34 U/L 04/24/2021 11:47 AM [facility] Protein Total 8.1 6.4 - 8.3 gm/dL 04/24/2021 11:47 AM [facility] Albumin 3.8 3.5 - 5.2 gm/dL 04/24/2021 11:47 AM [facility] Bilirubin Total 0.3 0.2 - 1.2 mg/dL 04/24/2021 11:47 AM [facility] eGFR by MDRD >60 >60 mL/min/1.7 3m2 04/24/2021 11:47 AM FLEET OPERATIONS MANAGER [facility] eGFR by MDRD >60 >60 mL/min/1.7 3m2 04/24/2021 11:47 AM F[employer]PER[employer] MANAGER [facility] Blood BLOOD SPECIMEN / Unknown Venipuncture / Unknown 04/24/2021 3:30 AM FLE[employer] OPERATIONS MANAGER 04/24/2021 11:01 AM [employer]PER[employer] MANAGER Lamberto De La Cruz MD LAB - CHEMISTRY ORDERABLES Final Result Performing Organization Address City/State/[facility] Co de Phone Number [facility] [address] [place] [address] documented in this encounter Visit Diagnoses Not on filedocumented in this encounter Care Teams Food Beverage Supervisor Relationship Specialty Start Date End Date Pepe Martel MD [address] [place] [id number] PCP - General 08/14/16 documented as of this encounter
--- OUTSIDE RECORDS SUMMARY | 2024-12-28 17:49 | XMS_ITS | Encounter Summary ---
Author Organization [facility] Address [address] [facility] [place] [address] Care Team Providers Care Epic Stork Specialists Name Role Phone Pepe Martel MD Primary Care Provider [phone] Encounter Details Date Type Department Care Team (Late st Contact Info) Description 06/26/2021 Lab Requisition [facility] [address] [place] [address] [place] [address] [place] [address] Social History Tobacco Use Types Packs/Day Years [...] W AUTO DIFFERENTIAL STAT 06/26/2021 5:22 AM NUCLEAR MEDICINE PET CT TECHNOLOGIST COMPREHENSIVE METABOLIC PANEL STAT 06/26/2021 5:22 AM NUCLEAR MEDICINE PET CT TECHNOLOGIST documented in this encounter Results * (ABNORMAL) CBC WITH DIFFERENTIAL (06/26/2021 5:22 AM NUCLEAR MEDICINE PET CT TECHNOLOGIST) WBC 8.0 4.4 - 10.7 x10E9/L 06/26/2021 9:25 AM NUCLEAR MEDICINE PET CT TECHNOLOGIST [facility] WBC Corrected 06/26/2021 9:25 AM NUCLEAR MEDICINE PET CT TECHNOLOGIST [facility] RBC 4.11 3.80 - 5.40 x10E12/L 06/26/2021 9:25 AM NUCLEAR MEDICINE PET CT TECHNOLOGIST [facility] Hemoglobin 11.0(L) 12.0 - 17.6 gm/dL 06/26/2021 9:25 AM NUCLEAR MEDICINE PET CT TECHNOLOGIST [facility] Hematocrit 35.3 35.2 - 51.7 % 06/26/2021 9:25 AM NUCLEAR MEDICINE PET CT TECHNOLOGIST [facility] MCV 85.9 80.7 - 98.3 fl 06/26/2021 9:25 AM NUCLEAR MEDICINE PET CT TECHNOLOGIST [facility] MCH 26.8 26.7 - 34.0 pg 06/26/2021 9:25 AM NUCLEAR MEDICINE PET CT TECHNOLOGIST [facility] MCHC 31.2 30.8 - 35.9 gm/dL 06/26/2021 9:25 AM NUCLEAR MEDICINE PET CT TECHNOLOGIST [facility] Platelet Count 402 153 - 416 x10E9/L 06/26/2021 9:[address] [facility] RDW-CV 12.8 12.1 - 14.9 % 06/26/2021 9:[address] [facility] MPV 10.2 9.4 - 12.9 fl 06/26/2021 9:[address] [facility] Neutrophils % 61.5 44.0 - 73.0 % 06/26/2021 9:[address] [facility] Lymphocytes % 22.2 20.0 - 43.0 % 06/26/2021 9:[address] [facility] Monocytes % 9.6 5.0 - 13.0 % 06/26/2021 9:[address] [facility] Eosinophils % 6.0 0.0 - 6.0 % 06/26/2021 9:[address] [facility] Basophils % 0.4 0.0 - 2.0 % 06/26/2021 9:[address] [facility] Immature Granulocytes 0.3 0 - 1 % 06/26/2021 9:[address] [facility] Neutrophil Absolute 4.92 2.01 - 7.14 x10E9/L 06/26/2021 9:[address] [facility] Lymphocytes Absolute 1.77 1.07 - 3.94 x10E9/L 06/26/2021 9:[address] [facility] Monocytes Absolute 0.77 0.26 - 1.07 x10E9/L 06/26/2021 9:[address] [facility] Eosinophils Absolute 0.48(H) 0 - 0.47 x10E9/L 06/26/2021 9:[address] [facility] Basophils Absolute 0.03 0 - 0.08 x10E9/L 06/26/2021 9:[address] [facility] Immature Granulocytes Absolute 0.02 0.00 - 0.06 x10E9/L 06/26/2021 9:[address] [facility] nRBC Auto 0 /100 WBC 06/26/2021 9:[address] [facility] Blood BLOOD SPECIMEN / Unknown Venipuncture / Unknown 06/26/2021 5:22 AM NUCLEAR MEDICINE PET CT TECHNOLOGIST 06/26/2021 9:06 AM [facility] us Vinicio Quintanilla MD LAB - HEMATOLOGY ORDERABLES Giselle adams Result [facility] [address] [place], [place] [id number] * (ABNORMAL) COMPREHENSIVE METABOLIC PANEL (06/26/2021 5:22 AM [facility]) Glucose 118(H) 70 - 105 mg/dL 06/26/2021 9:[address] [facility] Sodium 143 136 - 145 mmol/L 06/26/2021 9:[address] [facility] Potassium 4.5 3.5 - 5.1 mmol/L 06/26/2021 9:[address] [facility] Chloride 103 98 - 107 mmol/L 06/26/2021 9:[address] [facility] CO2 29 23 - 31 mmol/L 06/26/2021 9:[address] [facility] Calcium 9.7 8.4 - 10.4 mg/dL 06/26/2021 9:[address] [facility] Anion Gap 11 8 - 18 mmol/L 06/26/2021 9:[address] [facility] BUN 35(H) 8.9 - 20.6 mg/dL 06/26/2021 9:[address] [facility] Creatinine 1.00 0.72 - 1.25 mg/dL 06/26/2021 9:[address] [facility] Alkaline Phosphatase 131 40 - 150 U/L 06/26/2021 9:[address] [facility] ALT 39 0 - 61 U/L 06/26/2021 9:[address] [facility] AST 20 5 - 34 U/L 06/26/2021 9:[address] [facility] Protein Total 7.7 6.4 - 8.3 gm/dL 06/26/2021 9:[address] [facility] Albumin 3.7 3.5 - 5.2 gm/dL 06/26/2021 9:[address] [facility] Bilirubin Total 0.2 0.2 - 1.2 mg/dL 06/26/2021 9:[address] [facility] eGFR by MDRD >60 >60 mL/min/1.7 3m2 06/26/2021 9:55 AM NUCLEAR MEDICINE PET CT TECHNOLOGIST [facility] eGFR by MDRD >60 >60 mL/min/1.7 3m2 06/26/2021 9:55 AM NUCLEAR MEDICINE PET CT TECHNOLOGIST [facility] Blood BLOOD SPECIMEN / Unknown Venipuncture / Unknown 06/26/2021 5:22 AM NUCLEAR MEDICINE PET CT TECHNOLOGIST 06/26/2021 9:06 AM NUCLEAR MEDICINE PET CT TECHNOLOGIST us Vinicio Quintanilla MD LAB - CHEMISTRY ORDERABLES Final Result Performing Organization Address City/State/[facility] Co de Phone Number [facility] [address] [place] [address] documented in this encounter Visit Diagnoses Not on filedocumented in this encounter Care Teams Epic Stork Specialists Relationship Specialty Start Date End Date Pepe Martel MD [address] [place] [address] [address] [place] [address] PCP - General 08/14/16 documented as of this encounter
--- OUTSIDE RECORDS SUMMARY | 2024-12-28 17:49 | XMS_ITS | Encounter Summary ---
Author Organization [facility] Address [address] [facility] [place] [address] Care Team Providers Care Early Childhood Associate Teacher Name Role Phone Pepe Martel MD Primary Care Provider [phone] Encounter Details Date Type Department Care Team (Late st Contact Info) Description 05/26/2021 Lab Requisition [facility] [address] [place] [address] Lamberto De La Cruz MD [address] [facility] [address] [place] [address] Social History Tobacco Use [...] W AUTO DIFFERENTIAL STAT 05/26/2021 4:30 AM EPIC INTERFACE ANALYST COMPREHENSIVE METABOLIC PANEL STAT 05/26/2021 4:30 AM EPIC INTERFACE ANALYST documented in this encounter Results * (ABNORMAL) CBC WITH DIFFERENTIAL (05/26/2021 4:30 AM EPIC INTERFACE ANALYST) WBC 10.2 4.4 - 10.7 x10E9/L 05/26/2021 10:28 AM EPIC INTERFACE ANALYST [facility] WBC Corrected 05/26/2021 10:28 AM EPIC INTERFACE ANALYST [facility] RBC 3.89 3.80 - 5.40 x10E12/L 05/26/2021 10:28 AM EPIC INTERFACE ANALYST [facility] Hemoglobin 10.8(L) 12.0 - 17.6 gm/dL 05/26/2021 10:28 AM EPIC INTERFACE ANALYST [facility] Hematocrit 33.6(L) 35.2 - 51.7 % 05/26/2021 10:28 AM EPIC INTERFACE ANALYST [facility] MCV 86.4 80.7 - 98.3 fl 05/26/2021 10:28 AM EPIC INTERFACE ANALYST [facility] MCH 27.8 26.7 - 34.0 pg 05/26/2021 10:28 AM EPIC INTERFACE ANALYST [facility] MCHC 32.1 30.8 - 35.9 gm/dL 05/26/2021 10:[address] [facility] Platelet Count 442(H) 153 - 416 x10E9/L 05/26/2021 10:[address] [facility] RDW-CV 12.1 12.1 - 14.9 % 05/26/2021 10:[address] [facility] MPV 10.0 9.4 - 12.9 fl 05/26/2021 10:[address] [facility] Neutrophils % 75.1(H) 44.0 - 73.0 % 05/26/2021 10:[address] [facility] Lymphocytes % 10.9(L) 20.0 - 43.0 % 05/26/2021 10:[address] [facility] Monocytes % 10.6 5.0 - 13.0 % 05/26/2021 10:[address] [facility] Eosinophils % 2.9 0.0 - 6.0 % 05/26/2021 10:[address] [facility] Basophils % 0.2 0.0 - 2.0 % 05/26/2021 10:[address] [facility] Immature Granulocytes 0.3 0 - 1 % 05/26/2021 10:[address] [facility] Neutrophil Absolute 7.63(H) 2.01 - 7.14 x10E9/L 05/26/2021 10:[address] [facility] Lymphocytes Absolute 1.11 1.07 - 3.94 x10E9/L 05/26/2021 10:[address] [facility] Monocytes Absolute 1.08(H) 0.26 - 1.07 x10E9/L 05/26/2021 10:[address] [facility] Eosinophils Absolute 0.29 0 - 0.47 x10E9/L 05/26/2021 10:[address] [facility] Basophils Absolute 0.02 0 - 0.08 x10E9/L 05/26/2021 10:[address] [facility] Immature Granulocytes Absolute 0.03 0.00 - 0.06 x10E9/L 05/26/2021 10:[address] [facility] nRBC Auto 0 /100 WBC 05/26/2021 10:[address] [facility] Blood BLOOD SPECIMEN / Unknown Venipuncture / Unknown 05/26/2021 4:30 AM [facility] 05/26/2021 9:55 AM [facility] us Lamberto De La Cruz MD LAB - HEMATOLOGY ORDERABLES Giselle bryan Result [facility] [address] [place] [address] * (ABNORMAL) COMPREHENSIVE METABOLIC PANEL (05/26/2021 4:30 AM [facility]) [facility] Glucose 98 70 - 105 mg/dL 05/26/2021 10:[address] [facility] Sodium 135(L) 136 - 145 mmol/L 05/26/2021 10:[address] [facility] Potassium 5.0 3.5 - 5.1 mmol/L 05/26/2021 10:[address] [facility] Chloride 99 98 - 107 mmol/L 05/26/2021 10:[address] [facility] CO2 25 23 - 31 mmol/L 05/26/2021 10:[address] [facility] Calcium 9.4 8.4 - 10.4 mg/dL 05/26/2021 10:[address] [facility] Anion Gap 11 8 - 18 mmol/L 05/26/2021 10:[address] [facility] BUN 20 8.9 - 20.6 mg/dL 05/26/2021 10:[address] [facility] Creatinine 0.81 0.72 - 1.25 mg/dL 05/26/2021 10:[address] [facility] Alkaline Phosphatase 109 40 - 150 U/L 05/26/2021 10:[address] [facility] ALT 32 0 - 61 U/L 05/26/2021 10:[address] [facility] AST 21 5 - 34 U/L 05/26/2021 10:[address] [facility] Protein Total 7.3 6.4 - 8.3 gm/dL 05/26/2021 10:[address] [facility] Albumin 3.6 3.5 - 5.2 gm/dL 05/26/2021 10:[address] [facility] Bilirubin Total <0.1(L) 0.2 - 1.2 mg/dL 05/26/2021 10:[address] [facility] eGFR by MDRD >60 >60 mL/min/1.7 3m2 05/26/2021 10:52 AM EPIC INTERFACE ANALYST [facility] eGFR by MDRD >60 >60 mL/min/1.7 3m2 05/26/2021 10:52 AM EPIC INTERFACE ANALYST [facility] Blood BLOOD SPECIMEN / Unknown Venipuncture / Unknown 05/26/2021 4:30 AM EPIC INTERFACE ANALYST 05/26/2021 9:55 AM EPIC INTERFACE ANALYST Lamberto De La Cruz MD LAB - CHEMISTRY ORDERABLES Final Result [facility] [address] [place], [place] [id number] documented in this encounter Visit Diagnoses Not on filedocumented in this encounter Care Teams Early Childhood Associate Teacher Relationship Specialty Start Date End Date Pepe Martel MD [address] [place] [address] 3 [place] [address] PCP - General 08/14/16 documented as of this encounter
--- OUTSIDE RECORDS SUMMARY | 2024-12-28 17:49 | XMS_ITS | Encounter Summary ---
Author Organization [facility] Address [address] [place] [address] Care Team Providers Care Oracle Financial Application Developer Name Role Phone Pepe Martel MD Primary Care Provider Encounter Details Date Type Department Care Team (Late st Contact Info) Description 07/14/2021 Lab Requisition [facility] [address] [place] [address] [place] [address] [place] [address] Social History Tobacco Use Types Packs/Day Years [...] W AUTO DIFFERENTIAL STAT 07/14/2021 5:19 AM COKE DRAWER [employer] COMPREHENSIVE METABOLIC PANEL STAT 07/14/2021 5:19 AM [employer] [facility] [employer] documented in this encounter Results * (ABNORMAL) CBC WITH DIFFERENTIAL (07/14/2021 5:19 AM [employer] [facility] [employer]) WBC 9.1 4.4 - 10.7 x10E9/L 07/14/2021 1:59 PM [employer] WBC Corrected 07/14/2021 1:59 PM COKE DRAWER HAND [facility] RBC 4.39 3.80 - 5.40 x10E12/L 07/14/2021 1:59 PM [employer] D[employer] [facility] Hemoglobin 11.4(L) 12.0 - 17.6 gm/dL 07/14/2021 1:59 PM [employer] D[employer] [facility] Hematocrit 36.6 35.2 - 51.7 % 07/14/2021 1:59 PM CO[employer] DRAWER HAND [facility] MCV 83.4 80.7 - 98.3 fl 07/14/2021 1:59 PM CO[employer] DRAWER HAND [facility] MCH 26.0(L) 26.7 - 34.0 pg 07/14/2021 1:59 PM COKE DRAWER HAND [facility] MCHC 31.1 30.8 - 35.9 gm/dL 07/14/2021 1:59 PM CO[employer] DRAWER [employer] [facility] Platelet Count 481(H) 153 - 416 x10E9/L 07/14/2021 1:59 PM [facility] RDW-CV 13.4 12.1 - 14.9 % 07/14/2021 1:59 PM [facility] MPV 9.7 9.4 - 12.9 fl 07/14/2021 1:59 PM [facility] Neutrophils % 63.5 44.0 - 73.0 % 07/14/2021 1:59 PM [facility] Lymphocytes % 23.0 20.0 - 43.0 % 07/14/2021 1:59 PM [facility] Monocytes % 8.6 5.0 - 13.0 % 07/14/2021 1:59 PM [facility] Eosinophils % 4.2 0.0 - 6.0 % 07/14/2021 1:59 PM [facility] Basophils % 0.4 0.0 - 2.0 % 07/14/2021 1:59 PM [facility] Immature Granulocytes 0.3 0 - 1 % 07/14/2021 1:59 PM [facility] Neutrophil Absolute 5.79 2.01 - 7.14 x10E9/L 07/14/2021 1:59 PM [facility] Lymphocytes Absolute 2.10 1.07 - 3.94 x10E9/L 07/14/2021 1:59 PM [facility] Monocytes Absolute 0.78 0.26 - 1.07 x10E9/L 07/14/2021 1:59 PM [facility] Eosinophils Absolute 0.38 0 - 0.47 x10E9/L 07/14/2021 1:59 PM [facility] Basophils Absolute 0.04 0 - 0.08 x10E9/L 07/14/2021 1:59 PM [facility] Immature Granulocytes Absolute 0.03 0.00 - 0.06 x10E9/L 07/14/2021 1:59 PM [facility] nRBC Auto 0 /100 WBC 07/14/2021 1:59 PM [facility] Blood BLOOD SPECIMEN / Unknown Venipuncture / Unknown 07/14/2021 5:19 AM [facility] 07/14/2021 12:29 PM [facility] us Vinicio Quintanilla MD LAB - HEMATOLOGY ORDERABLES Giselle l Result [facility] [address] [place] [address] * (ABNORMAL) COMPREHENSIVE METABOLIC PANEL (07/14/2021 5:19 AM [facility]) Glucose 100 70 - 105 mg/dL 07/14/2021 1:24 PM [facility] Sodium 140 136 - 145 mmol/L 07/14/2021 1:24 PM [facility] Potassium 4.4 3.5 - 5.1 mmol/L 07/14/2021 1:24 PM [facility] Chloride 99 98 - 107 mmol/L 07/14/2021 1:24 PM [facility] CO2 26 23 - 31 mmol/L 07/14/2021 1:24 PM [facility] Calcium 10.0 8.4 - 10.4 mg/dL 07/14/2021 1:24 PM [facility] Anion Gap 15 8 - 18 mmol/L 07/14/2021 1:24 PM [facility] BUN 26(H) 8.9 - 20.6 mg/dL 07/14/2021 1:24 PM [facility] Creatinine 0.93 0.72 - 1.25 mg/dL 07/14/2021 1:24 PM [facility] eGFR by CKD-EPI >90 >=90 mL/min/1.7 3 m2 07/14/2021 1:24 PM [facility] Alkaline Phosphatase 139 40 - 150 U/L 07/14/2021 1:24 PM [facility] ALT 27 0 - 61 U/L 07/14/2021 1:24 PM [facility] AST 16 5 - 34 U/L 07/14/2021 1:24 PM [facility] Protein Total 7.6 6.4 - 8.3 gm/dL 07/14/2021 1:24 PM [facility] Albumin 3.8 3.5 - 5.2 gm/dL 07/14/2021 1:24 PM [facility] Bilirubin Total 0.3 0.2 - 1.2 mg/dL 07/14/2021 1:24 PM [employer] [facility] Blood BLOOD SPECIMEN / Unknown Venipuncture / Unknown 07/14/2021 5:19 AM [employer] [facility] [employer] 07/14/2021 12:29 PM [employer] [employer] Narrative [facility] - 07/14/2021 1:24 PM [employer] eGFR result was calculated using the updated CKD-EPI Creatinine Equations (2020). Prior to go live 2021 the eGFR was calculated using the MDRD calculation. Please note Reference Range change. us Vinicio Quintanilla MD LAB - CHEMISTRY ORDERABLES Final Result [facility] [address] [place], [place] [id number] documented in this encounter Visit Diagnoses Not on filedocumented in this encounter Care Teams Oracle Financial Application Developer Relationship Specialty Start Date End Date Pepe Martel MD [address] [place] [address] [address] [place] [address] PCP - General 08/14/16 documented as of this encounter
--- OUTSIDE RECORDS SUMMARY | 2024-12-28 17:49 | XMS_ITS | Encounter Summary ---
Author Organization [facility] Address [address] [facility] [place] [address] Care Team Providers Care Sheet Rock Nailer Name Role Phone Pepe Martel MD Primary Care Provider [phone] Encounter Details Date Type Department Care Team (Late st Contact Info) Description 05/30/2021 Lab Requisition [facility] [address] [place] [address] Fredy Sue [address] [place] [id number] Social History Tobacco Use Types Packs/Day [...] W AUTO DIFFERENTIAL STAT 05/30/2021 4:00 AM GENERAL MAINTENANCE ENGINEER COMPREHENSIVE METABOLIC PANEL STAT 05/30/2021 4:00 AM GENERAL MAINTENANCE ENGINEER documented in this encounter Results * (ABNORMAL) CBC WITH DIFFERENTIAL (05/30/2021 4:00 AM GENERAL MAINTENANCE ENGINEER) WBC 11.5(H) 4.4 - 10.7 x10E9/L 05/30/2021 9:11 AM GENERAL MAINTENANCE ENGINEER [facility] WBC Corrected 05/30/2021 9:11 AM GENERAL MAINTENANCE ENGINEER [facility] RBC 3.84 3.80 - 5.40 x10E12/L 05/30/2021 9:11 AM GENERAL MAINTENANCE ENGINEER [facility] Hemoglobin 10.5(L) 12.0 - 17.6 gm/dL 05/30/2021 9:11 AM GENERAL MAINTENANCE ENGINEER [facility] Hematocrit 32.9(L) 35.2 - 51.7 % 05/30/2021 9:11 AM GENERAL MAINTENANCE ENGINEER [facility] MCV 85.7 80.7 - 98.3 fl 05/30/2021 9:11 AM GENERAL MAINTENANCE ENGINEER [facility] MCH 27.3 26.7 - 34.0 pg 05/30/2021 9:11 AM GENERAL MAINTENANCE ENGINEER [facility] MCHC 31.9 30.8 - 35.9 gm/dL 05/30/2021 9:11 AM GENERAL MAINTENANCE ENGINEER [facility] Platelet Count 551(H) 153 - 416 x10E9/L 05/30/2021 9:11 AM [facility] RDW-CV 12.0(L) 12.1 - 14.9 % 05/30/2021 9:11 AM [facility] MPV 9.8 9.4 - 12.9 fl 05/30/2021 9:11 AM [facility] Neutrophils % 70.0 44.0 - 73.0 % 05/30/2021 9:11 AM [facility] Lymphocytes % 14.9(L) 20.0 - 43.0 % 05/30/2021 9:11 AM [facility] Monocytes % 10.3 5.0 - 13.0 % 05/30/2021 9:11 AM [facility] Eosinophils % 4.1 0.0 - 6.0 % 05/30/2021 9:11 AM [facility] Basophils % 0.3 0.0 - 2.0 % 05/30/2021 9:11 AM [facility] Immature Granulocytes 0.4 0 - 1 % 05/30/2021 9:11 AM [facility] Neutrophil Absolute 8.06(H) 2.01 - 7.14 x10E9/L 05/30/2021 9:11 AM [facility] Lymphocytes Absolute 1.72 1.07 - 3.94 x10E9/L 05/30/2021 9:11 AM [facility] Monocytes Absolute 1.18(H) 0.26 - 1.07 x10E9/L 05/30/2021 9:11 AM [facility] Eosinophils Absolute 0.47 0 - 0.47 x10E9/L 05/30/2021 9:11 AM [facility] Basophils Absolute 0.03 0 - 0.08 x10E9/L 05/30/2021 9:11 AM [facility] Immature Granulocytes Absolute 0.05 0.00 - 0.06 x10E9/L 05/30/2021 9:11 AM [facility] nRBC Auto 0 /100 WBC 05/30/2021 9:11 AM [facility] Blood BLOOD SPECIMEN / Unknown Venipuncture / Unknown 05/30/2021 4:00 AM GENERAL MAINTENANCE ENGINEER 05/30/2021 8:27 AM [facility] us Fredy Sue LAB - HEMATOLOGY ORDERABLES Giselle bryan Result [facility] [address] [place] [address] * (ABNORMAL) COMPREHENSIVE METABOLIC PANEL (05/30/2021 4:00 AM [facility]) Glucose 104 70 - 105 mg/dL 05/30/2021 9:24 AM [facility] Sodium 133(L) 136 - 145 mmol/L 05/30/2021 9:24 AM [facility] Potassium 5.4(H) 3.5 - 5.1 mmol/L 05/30/2021 9:24 AM [facility] Chloride 96(L) 98 - 107 mmol/L 05/30/2021 9:24 AM [facility] CO2 26 23 - 31 mmol/L 05/30/2021 9:24 AM [facility] Calcium 9.8 8.4 - 10.4 mg/dL 05/30/2021 9:24 AM [facility] Anion Gap 11 8 - 18 mmol/L 05/30/2021 9:24 AM [facility] BUN 28(H) 8.9 - 20.6 mg/dL 05/30/2021 9:24 AM [facility] Creatinine 0.75 0.72 - 1.25 mg/dL 05/30/2021 9:24 AM [facility] Alkaline Phosphatase 157(H) 40 - 150 U/L 05/30/2021 9:24 AM [facility] ALT 41 0 - 61 U/L 05/30/2021 9:24 AM [facility] AST 21 5 - 34 U/L 05/30/2021 9:24 AM [facility] Protein Total 7.9 6.4 - 8.3 gm/dL 05/30/2021 9:24 AM [facility] Albumin 3.6 3.5 - 5.2 gm/dL 05/30/2021 9:24 AM [facility] Bilirubin Total 0.2 0.2 - 1.2 mg/dL 05/30/2021 9:24 AM [employer] [facility] eGFR by MDRD >60 >60 mL/min/1.7 3m2 05/30/2021 9:24 AM [employer] [facility] eGFR by MDRD >60 >60 mL/min/1.7 3m2 05/30/2021 9:24 AM [employer]TENANCE [employer] [facility] Blood BLOOD SPECIMEN / Unknown Venipuncture / Unknown 05/30/2021 4:00 AM [employer] 05/30/2021 8:27 AM [employer] Fredy Sue LAB - CHEMISTRY ORDERABLES Final Result Performing Organization Address City/State/[facility] Co de Phone Number [facility] [address] [place] [address] documented in this encounter Visit Diagnoses Not on filedocumented in this encounter Care Teams Sheet Rock Nailer Relationship Specialty Start Date End Date Pepe Martel MD [address] [place] [address] [address] [place] [address] PCP - General 08/14/16 documented as of this encounter
--- OUTSIDE RECORDS SUMMARY | 2024-12-28 17:49 | XMS_ITS | Encounter Summary ---
Author Organization [facility] Address [address] [place] [address] Care Team Providers Care Soft Metals Hand Engraver Name Role Phone Pepe Martel MD Primary Care Provider [phone] Encounter Details Date Type Department Care Team (Late st Contact Info) Description 06/18/2021 Lab Requisition [facility] [address] [place] [address] Fredy Sue [address] [place] [address] Social History Tobacco Use Types Packs/Day [...] W AUTO DIFFERENTIAL STAT 06/18/2021 4:00 AM DISBURSEMENT CLERK COMPREHENSIVE METABOLIC PANEL STAT 06/18/2021 4:00 AM DISBURSEMENT CLERK documented in this encounter Results * (ABNORMAL) CBC WITH DIFFERENTIAL (06/18/2021 4:00 AM DISBURSEMENT CLERK) [facility] WBC 9.9 4.4 - 10.7 x10E9/L 06/18/2021 9:25 AM DISBURSEMENT CLERK [facility] WBC Corrected 06/18/2021 9:25 AM DISBURSEMENT CLERK [facility] RBC 4.14 3.80 - 5.40 x10E12/L 06/18/2021 9:25 AM DISBURSEMENT CLERK [facility] Hemoglobin 11.0(L) 12.0 - 17.6 gm/dL 06/18/2021 9:25 AM DISBURSEMENT CLERK [facility] Hematocrit 35.8 35.2 - 51.7 % 06/18/2021 9:25 AM DISBURSEMENT CLERK [facility] MCV 86.5 80.7 - 98.3 fl 06/18/2021 9:25 AM DISBURSEMENT CLERK [facility] MCH 26.6(L) 26.7 - 34.0 pg 06/18/2021 9:25 AM DISBURSEMENT CLERK [facility] MCHC 30.7(L) 30.8 - 35.9 gm/dL 06/18/2021 9:25 AM DISBURSEMENT CLERK [facility] Platelet Count 463(H) 153 - 416 x10E9/L 06/18/2021 9:25 AM [facility] RDW-CV 12.4 12.1 - 14.9 % 06/18/2021 9:25 AM [facility] MPV 9.9 9.4 - 12.9 fl 06/18/2021 9:25 AM [facility] Neutrophils % 70.7 44.0 - 73.0 % 06/18/2021 9:25 AM [facility] Lymphocytes % 15.7(L) 20.0 - 43.0 % 06/18/2021 9:25 AM [facility] Monocytes % 9.5 5.0 - 13.0 [...] Unknown Venipuncture / Unknown 06/18/2021 4:00 AM [facility] 06/18/2021 8:36 AM [facility] us Fredy Jaimesrebekahaltagracia LAB - HEMATOLOGY ORDERABLES Giselle adams Result [facility] [address] [place] [address] * (ABNORMAL) COMPREHENSIVE METABOLIC PANEL (06/18/2021 4:00 AM DISBURSEMENT CLERK) Glucose 116(H) 70 - 105 mg/dL 06/18/2021 [...] >60 >60 mL/min/1.7 3m2 06/18/2021 9:40 AM DISBURSEMENT CLERK [facility] eGFR by MDRD >60 >60 mL/min/1.7 3m2 06/18/2021 9:40 AM DISBURSEMENT CLERK [facility] Blood BLOOD SPECIMEN / Unknown Venipuncture / Unknown 06/18/2021 4:00 AM DISBURSEMENT CLERK 06/18/2021 8:36 AM DISBURSEMENT CLERK Fredy Sue LAB - CHEMISTRY ORDERABLES Final Result Performing Organization Address City/State/[facility] Co de Phone Number [facility] [address] [place] [address] documented in this encounter Visit Diagnoses Not on filedocumented in this encounter Care Teams Soft Metals Hand Engraver Relationship Specialty Start Date End Date Pepe Martel MD [address] [place] [id number] PCP - General 08/14/16 documented as of this encounter
--- OUTSIDE RECORDS SUMMARY | 2024-12-28 17:49 | XMS_ITS | Encounter Summary ---
Author Organization [facility] Address [address] [place] [address] Care Team Providers Care Mechanical Engineering Technologist Name Role Phone Pepe Martel MD Primary Care Provider [phone] Encounter Details Date Type Department Care Team (Late st Contact Info) Description 08/14/2021 Lab Requisition [facility] [address] [place] [address] [place] [address] [place] [address] Social History Tobacco Use Types Packs/Day Years [...] COMPREHENSIVE METABOLIC PANEL (08/14/2021 4:05 AM CDT) [facility] Glucose 99 70 - 105 mg/dL 08/14/2021 9:28 AM CDT [facility] Sodium 140 136 - 145 mmol/L 08/14/2021 9:28 AM CDT [facility] Potassium 4.8 3.5 - 5.1 mmol/L 08/14/2021 9:28 AM CDT [facility] Chloride 101 98 - 107 mmol/L 08/14/2021 9:28 AM CDT [facility] CO2 28 23 - 31 mmol/L 08/14/2021 9:28 AM CDT [facility] Calcium 10.0 8.4 - 10.4 mg/dL 08/14/2021 9:28 AM CDT [facility] Anion Gap 11 8 - 18 mmol/L 08/14/2021 9:28 AM CDT [facility] BUN 26(H) 8.9 - 20.6 mg/dL 08/14/2021 9:28 AM CDT [facility] Creatinine 0.73 0.72 - 1.25 mg/dL 08/14/2021 9:28 AM CDT [facility] Alkaline Phosphatase 119 40 - 150 U/L 08/14/2021 9:28 AM CDT [facility] ALT 20 0 - 61 U/L 08/14/2021 9:28 AM CDT [facility] AST 13 5 - 34 U/L 08/14/2021 9:28 AM CDT [facility] Protein Total 7.1 6.4 - 8.3 gm/dL 08/14/2021 9:28 AM CDT [facility] Albumin 3.4(L) 3.5 - 5.2 gm/dL 08/14/2021 9:28 AM CDT [facility] Bilirubin Total 0.3 0.2 - 1.2 mg/dL 08/14/2021 9:28 AM CDT [facility] eGFR by CKD-EPI >90 >=90 mL/min/1.7 3 m2 08/14/2021 9:28 AM CDT [facility] Blood BLOOD SPECIMEN / Unknown Venipuncture / Unknown 08/14/2021 4:05 AM CDT 08/14/2021 8:56 AM CDT [facility] - 08/14/2021 9:28 AM CDT eGFR result was calculated using the updated CKD-EPI Creatinine Equations (2020). Prior to go live 2021 the eGFR was calculated using the MDRD calculation. Please note Reference Range change. us Vinicio Quintanilla MD LAB - CHEMISTRY ORDERABLES Final Result Performing Organization Address City/State/[facility] Co de Phone Number [facility] [address] [place], [place] [phone] documented in this encounter Visit Diagnoses Not on filedocumented in this encounter Care Teams Mechanical Engineering Technologist Relationship Specialty Start Date End Date Pepe Martel MD [address] [place] [address] [address] [place] [address] PCP - General 08/14/16 documented as of this encounter
--- OUTSIDE RECORDS SUMMARY | 2024-12-28 17:49 | XMS_ITS | Encounter Summary ---
Author Organization [facility] Address [address] [facility] [place] [address] Care Team Providers Care Lean Engineer Name Role Phone Pepe Martel MD Primary Care Provider [phone] Encounter Details Date Type Department Care Team (Late st Contact Info) Description 05/19/2021 Lab Requisition [facility] [address] [place] [address] Lamberto De La Cruz MD [address] [facility] [address] [place] [address] Social History Tobacco Use Types [...] W AUTO DIFFERENTIAL STAT 05/19/2021 3:30 AM SENIOR PRODUCT DEVELOPMENT MANAGER COMPREHENSIVE METABOLIC PANEL STAT 05/19/2021 3:30 AM SENIOR PRODUCT DEVELOPMENT MANAGER VANCOMYCIN LEVEL TROUGH STAT 05/19/2021 3:30 AM SENIOR PRODUCT DEVELOPMENT MANAGER documented in this encounter Results * VANCOMYCIN LEVEL TROUGH (05/19/2021 3:30 AM SENIOR PRODUCT DEVELOPMENT MANAGER) Pathologist [facility] Vancomycin Trough 18.1 10.0 - 20.0 ug/mL 05/19/2021 12:14 PM SENIOR PRODUCT DEVELOPMENT MANAGER [facility] Blood BLOOD SPECIMEN / Unknown Venipuncture / Unknown 05/19/2021 3:30 AM SENIOR PRODUCT DEVELOPMENT MANAGER 05/19/2021 11:41 AM SENIOR PRODUCT DEVELOPMENT MANAGER us Lamberto De La Cruz MD LAB - CHEMISTRY ORDERABLES Final Result [facility] [address] [place] [address] * (ABNORMAL) CBC WITH DIFFERENTIAL (05/19/2021 3:30 AM SENIOR PRODUCT DEVELOPMENT MANAGER) Pathologist [facility] WBC 7.8 4.4 - 10.7 x10E9/L 05/19/2021 10:13 AM [facility] WBC Corrected 05/19/2021 10:13 AM [facility] RBC 3.99 3.80 - 5.40 x10E12/L 05/19/2021 10:13 AM [facility] Hemoglobin 11.0(L) 12.0 - 17.6 gm/dL 05/19/2021 10:13 AM [facility] Hematocrit 35.2 35.2 - 51.7 % 05/19/2021 10:13 AM [facility] MCV 88.2 80.7 - 98.3 fl 05/19/2021 10:13 AM [facility] MCH 27.6 26.7 - 34.0 pg 05/19/2021 10:13 AM [facility] MCHC 31.3 30.8 - 35.9 gm/dL 05/19/2021 10:13 AM [facility] Platelet Count 363 153 - 416 x10E9/L 05/19/2021 10:13 AM [facility] RDW-CV 12.1 12.1 - 14.9 % 05/19/2021 10:13 AM [facility] MPV 10.4 9.4 - 12.9 fl 05/19/2021 10:13 AM [facility] Neutrophils % 67.6 44.0 - 73.0 % 05/19/2021 10:13 AM [facility] Lymphocytes % 16.6(L) 20.0 - 43.0 % 05/19/2021 10:13 AM [facility] Monocytes % 9.8 5.0 - 13.0 % 05/19/2021 10:13 AM [facility] Eosinophils % 5.3 0.0 - 6.0 % 05/19/2021 10:13 AM [facility] Basophils % 0.4 0.0 - 2.0 % 05/19/2021 10:13 AM [facility] Immature Granulocytes 0.3 0 - 1 % 05/19/2021 10:13 AM [facility] Neutrophil Absolute 5.25 2.01 - 7.14 x10E9/L 05/19/2021 10:13 AM [facility] Lymphocytes Absolute 1.29 1.07 - 3.94 x10E9/L 05/19/2021 10:13 AM [facility] Monocytes Absolute 0.76 0.26 - 1.07 x10E9/L 05/19/2021 10:13 AM [facility] Eosinophils Absolute 0.41 0 - 0.47 x10E9/L 05/19/2021 10:13 AM [facility] Basophils Absolute 0.03 0 - 0.08 x10E9/L 05/19/2021 10:13 AM [facility] Immature Granulocytes Absolute 0.02 0.00 - 0.06 x10E9/L 05/19/2021 10:13 AM [facility] nRBC Auto 0 /100 WBC 05/19/2021 10:13 AM [facility] Blood BLOOD SPECIMEN / Unknown Venipuncture / Unknown 05/19/2021 3:30 AM SENIOR PRODUCT DEVELOPMENT MANAGER 05/19/2021 9:41 AM [facility] us Lamberto De La Cruz MD LAB - HEMATOLOGY ORDERABLES Giselle adams Result Performing Organization Address City/State/[facility] Co de Phone Number [facility] [address] [place] [address] * (ABNORMAL) COMPREHENSIVE METABOLIC PANEL (05/19/2021 3:30 AM [facility]) Glucose 110(H) 70 - 105 mg/dL 05/19/2021 10:27 AM [facility] Sodium 139 136 - 145 mmol/L 05/19/2021 10:27 AM [facility] Potassium 4.7 3.5 - 5.1 mmol/L 05/19/2021 10:27 AM [facility] Chloride 105 98 - 107 mmol/L 05/19/2021 10:27 AM [facility] CO2 24 23 - 31 mmol/L 05/19/2021 10:27 AM [facility] Calcium 9.3 8.4 - 10.4 mg/dL 05/19/2021 10:27 AM [facility] Anion Gap 10 8 - 18 mmol/L 05/19/2021 10:27 AM [facility] BUN 30(H) 8.9 - 20.6 mg/dL 05/19/2021 10:27 AM [facility] Creatinine 0.90 0.72 - 1.25 mg/dL 05/19/2021 10:27 AM SENIOR PRODUCT DEVELOPMENT MANAGER [facility] Alkaline Phosphatase 93 40 - 150 U/L 05/19/2021 10:27 AM SENIOR PRODUCT DEVELOPMENT MANAGER [facility] ALT 29 0 - 61 U/L 05/19/2021 10:27 AM SENIOR PRODUCT DEVELOPMENT MANAGER [facility] AST 19 5 - 34 U/L 05/19/2021 10:27 AM [facility] Protein Total 7.3 6.4 - 8.3 gm/dL 05/19/2021 10:27 AM SENIOR PRODUCT DEVELOPMENT MANAGER [facility] Albumin 3.7 3.5 - 5.2 gm/dL 05/19/2021 10:27 AM [facility] Bilirubin Total 0.3 0.2 - 1.2 mg/dL 05/19/2021 10:27 AM SENIOR PRODUCT DEVELOPMENT MANAGER [facility] eGFR by MDRD >60 >60 mL/min/1.7 3m2 05/19/2021 10:27 AM [facility] eGFR by MDRD >60 >60 mL/min/1.7 3m2 05/19/2021 10:27 AM [facility] Blood BLOOD SPECIMEN / Unknown Venipuncture / Unknown 05/19/2021 3:30 AM SENIOR PRODUCT DEVELOPMENT MANAGER 05/19/2021 9:41 AM SENIOR PRODUCT DEVELOPMENT MANAGER Lamberto De La Cruz MD LAB - CHEMISTRY ORDERABLES Final Result Performing Organization Address City/State/[facility] Co de Phone Number [facility] [address] [place] [address] documented in this encounter Visit Diagnoses Not on filedocumented in this encounter Care Teams Lean Engineer Relationship Specialty Start Date End Date Pepe Martel MD [address] [place] [id number] PCP - General 08/14/16 documented as of this encounter
--- OUTSIDE RECORDS SUMMARY | 2024-12-28 17:49 | XMS_ITS | Encounter Summary ---
Author Organization [facility] Address [address] [facility] [place] [address] Care Team Providers Care Underwriter Solicitation Director Name Role Phone Pepe Martel MD Primary Care Provider [phone] Encounter Details Date Type Department Care Team (Late st Contact Info) Description 06/23/[address] [facility] [address] [place] [address] [place] [address] [place] [address] Social History Tobacco Use Types Packs/Day Years [...] W AUTO DIFFERENTIAL STAT 06/23/2021 3:33 AM WAREHOUSE PICKER COMPREHENSIVE METABOLIC PANEL STAT 06/23/2021 3:33 AM WAREHOUSE PICKER documented in this encounter Results * (ABNORMAL) CBC WITH DIFFERENTIAL (06/23/2021 3:33 AM WAREHOUSE PICKER) WBC 9.1 4.4 - 10.7 x10E9/L 06/23/2021 10:34 AM WAREHOUSE PICKER [facility] WBC Corrected 06/23/2021 10:34 AM WAREHOUSE PICKER [facility] RBC 4.45 3.80 - 5.40 x10E12/L 06/23/2021 10:34 AM WAREHOUSE PICKER [facility] Hemoglobin 11.7(L) 12.0 - 17.6 gm/dL 06/23/2021 10:34 AM WAREHOUSE PICKER [facility] Hematocrit 38.5 35.2 - 51.7 % 06/23/2021 10:34 AM WAREHOUSE PICKER [facility] MCV 86.5 80.7 - 98.3 fl 06/23/2021 10:34 AM WAREHOUSE PICKER [facility] MCH 26.3(L) 26.7 - 34.0 pg 06/23/2021 10:34 AM WAREHOUSE PICKER [facility] MCHC 30.4(L) 30.8 - 35.9 gm/dL 06/23/2021 10:[address] [facility] Platelet Count 438(H) 153 - 416 x10E9/L 06/23/2021 10:[address] [facility] RDW-CV 12.8 12.1 - 14.9 % 06/23/2021 10:[address] [facility] MPV 10.3 9.4 - 12.9 fl 06/23/2021 10:[address] [facility] Neutrophils % 69.5 44.0 - 73.0 % 06/23/2021 10:[address] [facility] Lymphocytes % 16.4(L) 20.0 - 43.0 % 06/23/2021 10:[address] [facility] Monocytes % 7.9 5.0 - 13.0 % 06/23/2021 10:[address] [facility] Eosinophils % 5.3 0.0 - 6.0 % 06/23/2021 10:[address] [facility] Basophils % 0.6 0.0 - 2.0 % 06/23/2021 10:[address] [facility] Immature Granulocytes 0.3 0 - 1 % 06/23/2021 10:[address] [facility] Neutrophil Absolute 6.32 2.01 - 7.14 x10E9/L 06/23/2021 10:[address] [facility] Lymphocytes Absolute 1.49 1.07 - 3.94 x10E9/L 06/23/2021 10:[address] [facility] Monocytes Absolute 0.72 0.26 - 1.07 x10E9/L 06/23/2021 10:[address] [facility] Eosinophils Absolute 0.48(H) 0 - 0.47 x10E9/L 06/23/2021 10:[address] [facility] Basophils Absolute 0.05 0 - 0.08 x10E9/L 06/23/2021 10:[address] [facility] Immature Granulocytes Absolute 0.03 0.00 - 0.06 x10E9/L 06/23/2021 10:[address] [facility] nRBC Auto 0 /100 WBC 06/23/2021 10:[address] [facility] Blood BLOOD SPECIMEN / Unknown Venipuncture / Unknown 06/23/2021 3:33 AM WAREHOUSE PICKER 06/23/2021 9:33 AM [facility] us Vinicio Quintanilla MD LAB - HEMATOLOGY ORDERABLES Giselle adams Result [facility] [address] [place] [address] * (ABNORMAL) COMPREHENSIVE METABOLIC PANEL (06/23/2021 3:33 AM [facility]) Glucose 95 70 - 105 mg/dL 06/23/2021 10:[address] [facility] Sodium 140 136 - 145 mmol/L 06/23/2021 10:[address] [facility] Potassium 5.2(H) 3.5 - 5.1 mmol/L 06/23/2021 10:[address] [facility] Chloride 102 98 - 107 mmol/L 06/23/2021 10:[address] [facility] CO2 22(L) 23 - 31 mmol/L 06/23/2021 10:[address] [facility] Calcium 9.7 8.4 - 10.4 mg/dL 06/23/2021 10:[address] [facility] Anion Gap 16 8 - 18 mmol/L 06/23/2021 10:[address] [facility] BUN 32(H) 8.9 - 20.6 mg/dL 06/23/2021 10:[address] [facility] Creatinine 0.86 0.72 - 1.25 mg/dL 06/23/2021 10:[address] [facility] Alkaline Phosphatase 123 40 - 150 U/L 06/23/2021 10:[address] [facility] ALT 34 0 - 61 U/L 06/23/2021 10:[address] [facility] AST 21 5 - 34 U/L 06/23/2021 10:[address] [facility] Protein Total 7.9 6.4 - 8.3 gm/dL 06/23/2021 10:[address] [facility] Albumin 3.6 3.5 - 5.2 gm/dL 06/23/2021 10:[address] [facility] Bilirubin Total 0.2 0.2 - 1.2 mg/dL 06/23/2021 10:[address] [facility] eGFR by MDRD >60 >60 mL/min/1.7 3m2 06/23/2021 10:[address] [facility] eGFR by MDRD >60 >60 mL/min/1.7 3m2 06/23/2021 10:[address] [facility] Blood BLOOD SPECIMEN / Unknown Venipuncture / Unknown 06/23/2021 3:33 AM WAREHOUSE PICKER 06/23/2021 9:33 AM [employer]HOU[employer] P[employer] us Vinicio Quintanilla MD LAB - CHEMISTRY ORDERABLES Final Result [facility] [address] [place], [place] [id number] documented in this encounter Visit Diagnoses Not on filedocumented in this encounter Care Teams Underwriter Solicitation Director Relationship Specialty Start Date End Date Pepe Martel MD [address] [place] [address] [address] [place] [address] PCP - General 08/14/16 documented as of this encounter
--- OUTSIDE RECORDS SUMMARY | 2024-12-28 17:49 | XMS_ITS | Encounter Summary ---
Author Organization [facility] Address [address] [facility] [address] Care Team Providers Care Director Of Graduate Admissions Name Role Phone Pepe Martel MD Primary Care Provider [phone] Encounter Details Date Type Department Care Team (Late st Contact Info) Description 05/01/2021 Lab Requisition [facility] [address] [place] [address] Lamberto De La Cruz MD [address] [facility] [address] [place] [address] Social History Tobacco Use Types [...] W AUTO DIFFERENTIAL STAT 05/01/2021 2:25 AM FINISH PRODUCTION MANAGER COMPREHENSIVE METABOLIC PANEL STAT 05/01/2021 2:25 AM FINISH PRODUCTION MANAGER documented in this encounter Results * (ABNORMAL) CBC WITH DIFFERENTIAL (05/01/2021 2:25 AM FINISH PRODUCTION MANAGER) WBC 7.1 4.4 - 10.7 x10E9/L 05/01/2021 10:19 AM FINISH PRODUCTION MANAGER [facility] WBC Corrected 05/01/2021 10:19 AM FINISH PRODUCTION MANAGER [facility] RBC 3.68(L) 3.80 - 5.40 x10E12/L 05/01/2021 10:19 AM FINISH PRODUCTION MANAGER [facility] Hemoglobin 10.1(L) 12.0 - 17.6 gm/dL 05/01/2021 10:19 AM FINISH PRODUCTION MANAGER [facility] Hematocrit 33.8(L) 35.2 - 51.7 % 05/01/2021 10:19 AM FINISH PRODUCTION MANAGER [facility] MCV 91.8 80.7 - 98.3 fl 05/01/2021 10:19 AM FINISH PRODUCTION MANAGER [facility] MCH 27.4 26.7 - 34.0 pg 05/01/2021 10:19 AM FINISH PRODUCTION MANAGER [facility] MCHC 29.9(L) 30.8 - 35.9 gm/dL 05/01/2021 10:19 AM [facility] Platelet Count 407 153 - 416 x10E9/L 05/01/2021 10:19 AM [facility] RDW-CV 13.7 12.1 - 14.9 % 05/01/2021 10:19 AM [facility] MPV 10.5 9.4 - 12.9 fl 05/01/2021 10:19 AM [facility] Neutrophils % 64.8 44.0 - 73.0 % 05/01/2021 10:19 AM [facility] Lymphocytes % 19.1(L) 20.0 - 43.0 % 05/01/2021 10:19 AM [facility] Monocytes % 10.5 5.0 - 13.0 % 05/01/2021 10:19 AM [facility] Eosinophils % 5.1 0.0 - 6.0 % 05/01/2021 10:19 AM [facility] Basophils % 0.4 0.0 - 2.0 % 05/01/2021 10:19 AM [facility] Immature Granulocytes 0.1 0 - 1 % 05/01/2021 10:19 AM [facility] Neutrophil Absolute 4.58 2.01 - 7.14 x10E9/L 05/01/2021 10:19 AM [facility] Lymphocytes Absolute 1.35 1.07 - 3.94 x10E9/L 05/01/2021 10:19 AM [facility] Monocytes Absolute 0.74 0.26 - 1.07 x10E9/L 05/01/2021 10:19 AM [facility] Eosinophils Absolute 0.36 0 - 0.47 x10E9/L 05/01/2021 10:19 AM [facility] Basophils Absolute 0.03 0 - 0.08 x10E9/L 05/01/2021 10:19 AM [facility] Immature Granulocytes Absolute 0.01 0.00 - 0.06 x10E9/L 05/01/2021 10:19 AM [facility] nRBC Auto 0 /100 WBC 05/01/2021 10:19 AM [facility] Blood BLOOD SPECIMEN / Unknown Venipuncture / Unknown 05/01/2021 2:25 AM [employer]ISH [employer]ODUCTION MANAGER 05/01/2021 10:09 AM [facility] us Lamberto De La Cruz MD LAB - HEMATOLOGY ORDERABLES Giselle bryan Result [facility] [address] [place] [address] * (ABNORMAL) COMPREHENSIVE METABOLIC PANEL (05/01/2021 2:25 AM FINISH PRODUCTION MANAGER) Glucose 120(H) 70 - 105 mg/dL 05/01/2021 10:47 AM [facility] Sodium 140 136 - 145 mmol/L 05/01/2021 10:47 AM [facility] Potassium 4.9 3.5 - 5.1 mmol/L 05/01/2021 10:47 AM [facility] Chloride 104 98 - 107 mmol/L 05/01/2021 10:47 AM [facility] CO2 23 23 - 31 mmol/L 05/01/2021 10:47 AM [facility] Calcium 9.7 8.4 - 10.4 mg/dL 05/01/2021 10:47 AM [facility] Anion Gap 13 8 - 18 mmol/L 05/01/2021 10:47 AM [facility] BUN 31(H) 8.9 - 20.6 mg/dL 05/01/2021 10:47 AM [facility] Creatinine 0.93 0.72 - 1.25 mg/dL 05/01/2021 10:47 AM [facility] Alkaline Phosphatase 79 40 - 150 U/L 05/01/2021 10:47 AM [facility] ALT 21 0 - 61 U/L 05/01/2021 10:47 AM [facility] AST 22 5 - 34 U/L 05/01/2021 10:47 AM [facility] Protein Total 7.3 6.4 - 8.3 gm/dL 05/01/2021 10:47 AM [facility] Albumin 3.5 3.5 - 5.2 gm/dL 05/01/2021 10:47 AM [facility] Bilirubin Total 0.3 0.2 - 1.2 mg/dL 05/01/2021 10:47 AM [facility] eGFR by MDRD >60 >60 mL/min/1.7 3m2 05/01/2021 10:47 AM FINISH PRODUCTION MANAGER [facility] eGFR by MDRD >60 >60 mL/min/1.7 3m2 05/01/2021 10:47 AM FINISH PRODUCTION MANAGER [facility] Blood BLOOD SPECIMEN / Unknown Venipuncture / Unknown 05/01/2021 2:25 AM FINISH PRODUCTION MANAGER 05/01/2021 10:09 AM FINISH PRODUCTION MANAGER Lamberto De La Cruz MD LAB - CHEMISTRY ORDERABLES Final Result Performing Organization Address City/State/[facility] Co de Phone Number [facility] [address] [place] [address] documented in this encounter Visit Diagnoses Not on filedocumented in this encounter Care Teams Director Of Graduate Admissions Relationship Specialty Start Date End Date Pepe Martel MD [address] [place] [id number] PCP - General 08/14/16 documented as of this encounter
--- OUTSIDE RECORDS SUMMARY | 2024-12-28 17:49 | XMS_ITS | Encounter Summary ---
Author Organization [facility] Address [address] [address] Care Team Providers Care Siebel Consultant Name Role Phone Pepe Martel MD Primary Care Provider [phone] Encounter Details Date Type Department Care Team (Late st Contact Info) Description 06/02/2021 Lab Requisition [facility] [address] [place] [address] Lamberto De La Cruz MD [address] [facility] [address] [place] [address] Social History Tobacco Use Types [...] W AUTO DIFFERENTIAL STAT 06/02/2021 3:50 AM SHEET ROCK INSTALLER COMPREHENSIVE METABOLIC PANEL STAT 06/02/2021 3:50 AM SHEET ROCK INSTALLER documented in this encounter Results * (ABNORMAL) COMPREHENSIVE METABOLIC PANEL (06/02/2021 3:50 AM SHEET ROCK INSTALLER) Glucose 126(H) 70 - 105 mg/dL 06/02/2021 9:57 AM SHEET ROCK INSTALLER [facility] Sodium 133(L) 136 - 145 mmol/L 06/02/2021 9:57 AM SHEET ROCK INSTALLER [facility] Potassium 4.9 3.5 - 5.1 mmol/L 06/02/2021 9:57 AM SHEET ROCK INSTALLER [facility] Chloride 95(L) 98 - 107 mmol/L 06/02/2021 9:57 AM SHEET ROCK INSTALLER [facility] CO2 26 23 - 31 mmol/L 06/02/2021 9:57 AM SHEET ROCK INSTALLER [facility] Calcium 9.4 8.4 - 10.4 mg/dL 06/02/2021 9:57 AM SHEET ROCK INSTALLER [facility] Anion Gap 12 8 - 18 mmol/L 06/02/2021 9:57 AM SHEET ROCK INSTALLER [facility] BUN 28(H) 8.9 - 20.6 mg/dL 06/02/2021 9:57 AM SHEET ROCK INSTALLER [facility] Creatinine 0.76 0.72 - 1.25 mg/dL 06/02/2021 9:57 AM [facility] Alkaline Phosphatase 170(H) 40 - 150 U/L 06/02/2021 9:57 AM [facility] ALT 37 0 - 61 U/L 06/02/2021 9:57 AM [facility] AST 18 5 - 34 U/L 06/02/2021 9:57 AM [facility] Protein Total 7.6 6.4 - 8.3 gm/dL 06/02/2021 9:57 AM [facility] Albumin 3.5 3.5 - 5.2 gm/dL 06/02/2021 9:57 AM [facility] Bilirubin Total <0.1(L) 0.2 - 1.2 mg/dL 06/02/2021 9:57 AM [facility] eGFR by MDRD >60 >60 mL/min/1.7 3m2 06/02/2021 9:57 AM [facility] eGFR by MDRD >60 >60 mL/min/1.7 3m2 06/02/2021 9:57 AM [facility] Blood BLOOD SPECIMEN / Unknown Venipuncture / Unknown 06/02/2021 3:50 AM SHEET ROCK INSTALLER 06/02/2021 8:48 AM [facility] Lamberto De La Cruz MD LAB - CHEMISTRY ORDERABLES Final Result Performing Organization Address City/State/[facility] Co de Phone Number [facility] [address] [place] [address] * (ABNORMAL) CBC WITH DIFFERENTIAL (06/02/2021 3:50 AM SHEET ROCK INSTALLER) [facility] WBC 9.6 4.4 - 10.7 x10E9/L 06/02/2021 9:26 AM [facility] WBC Corrected 06/02/2021 9:26 AM [facility] RBC 3.91 3.80 - 5.40 x10E12/L 06/02/2021 9:26 AM [facility] Hemoglobin 10.7(L) 12.0 - 17.6 gm/dL 06/02/2021 9:26 AM [facility] Hematocrit 32.6(L) 35.2 - 51.7 % 06/02/2021 9:26 AM [facility] MCV 83.4 80.7 - 98.3 fl 06/02/2021 9:26 AM [facility] MCH 27.4 26.7 - 34.0 pg 06/02/2021 9:26 AM [facility] MCHC 32.8 30.8 - 35.9 gm/dL 06/02/2021 9:26 AM [facility] Platelet Count 478(H) 153 - 416 x10E9/L 06/02/2021 9:26 AM [facility] RDW-CV 12.0(L) 12.1 - 14.9 % 06/02/2021 9:26 AM [facility] MPV 9.2(L) 9.4 - 12.9 fl 06/02/2021 9:26 AM [facility] Neutrophils % 72.3 44.0 - 73.0 % 06/02/2021 9:26 AM [facility] Lymphocytes % 13.0(L) 20.0 - 43.0 % 06/02/2021 9:26 AM [facility] Monocytes % 10.0 5.0 - 13.0 % 06/02/2021 9:26 AM [facility] Eosinophils % 4.1 0.0 - 6.0 % 06/02/2021 9:26 AM [facility] Basophils % 0.3 0.0 - 2.0 % 06/02/2021 9:26 AM [facility] Immature Granulocytes 0.3 0 - 1 % 06/02/2021 9:26 AM [facility] Neutrophil Absolute 6.92 2.01 - 7.14 x10E9/L 06/02/2021 9:26 AM [facility] Lymphocytes Absolute 1.25 1.07 - 3.94 x10E9/L 06/02/2021 9:26 AM [facility] Monocytes Absolute 0.96 0.26 - 1.07 x10E9/L 06/02/2021 9:26 AM [facility] Eosinophils Absolute 0.39 0 - 0.47 x10E9/L 06/02/2021 9:26 AM [facility] Basophils Absolute 0.03 0 - 0.08 x10E9/L 06/02/2021 9:26 AM SHEET ROCK INSTALLER [facility] Immature Granulocytes Absolute 0.03 0.00 - 0.06 x10E9/L 06/02/2021 9:26 AM SHEET ROCK INSTALLER [facility] nRBC Auto 0 /100 WBC 06/02/2021 9:26 AM SHEET ROCK INSTALLER [facility] Blood BLOOD SPECIMEN / Unknown Venipuncture / Unknown 06/02/2021 3:50 AM SHEET ROCK INSTALLER 06/02/2021 8:48 AM SHEET ROCK INSTALLER us Lamberto De La Cruz MD LAB - HEMATOLOGY ORDERABLES Giselle adams Result [facility] [address] [place], [place] [id number] documented in this encounter Visit Diagnoses Not on filedocumented in this encounter Care Teams Siebel Consultant Relationship Specialty Start Date End Date Pepe Martel MD [address] [place] [address] [address] [place] [address] PCP - General 08/14/16 documented as of this encounter
--- OUTSIDE RECORDS SUMMARY | 2024-12-28 17:49 | XMS_ITS | Encounter Summary ---
Author Organization [facility] Address [address] [place] [address] Care Team Providers Care Occupational Health Coordinator Name Role Phone Pepe Martel MD Primary Care Provider [phone] Encounter Details Date Type Department Care Team (Late st Contact Info) Description 08/11/2021 Lab Requisition [facility] [address] [place] [address] [place] [address] [place] [address] Social History Tobacco Use Types Packs/Day Years [...] CBC WITH DIFFERENTIAL (08/11/2021 5:24 AM CDT) [facility] [address] WBC 8.6 4.4 - 10.7 x10E9/L 08/11/2021 [...] 30.8 - 35.9 gm/dL 08/11/2021 9:36 AM [facility] Platelet Count 517(H) 153 - 416 x10E9/L 08/11/2021 9:36 AM [facility] RDW-CV 15.9(H) 12.1 - 14.9 % 08/11/2021 9:36 AM [facility] MPV 10.5 9.4 - 12.9 fl 08/11/2021 9:36 AM [facility] Neutrophils % 64.3 44.0 - 73.0 % 08/11/2021 9:36 AM [facility] Lymphocytes % 23.9 20.0 - 43.0 % 08/11/2021 9:36 AM [facility] Monocytes % 8.6 5.0 - 13.0 % 08/11/2021 9:36 AM [facility] Eosinophils % 2.4 0.0 - 6.0 % 08/11/2021 9:36 AM [facility] Basophils % 0.3 0.0 - 2.0 % 08/11/2021 9:36 AM [facility] Immature Granulocytes 0.5 0 - 1 % 08/11/2021 9:36 AM [facility] Neutrophil Absolute 5.52 2.01 - 7.14 x10E9/L 08/11/2021 9:36 AM [facility] Lymphocytes Absolute 2.05 1.07 - 3.94 x10E9/L 08/11/2021 9:36 AM [facility] Monocytes Absolute 0.74 0.26 - 1.07 x10E9/L 08/11/2021 9:36 AM [facility] Eosinophils Absolute 0.21 0 - 0.47 x10E9/L 08/11/2021 9:36 AM [facility] Basophils Absolute 0.03 0 - 0.08 x10E9/L 08/11/2021 9:36 AM [facility] Immature Granulocytes Absolute 0.04 0.00 - 0.06 x10E9/L 08/11/2021 9:36 AM [facility] nRBC Auto 0 /100 WBC 08/11/2021 9:36 AM [facility] Blood BLOOD SPECIMEN / Unknown Venipuncture / Unknown 08/11/2021 5:24 AM CDT 08/11/2021 9:25 AM CDT us Vinicio Quintanilla MD LAB - HEMATOLOGY ORDERABLES Giselle adams Result [facility] [address] [place], [place] [id number] * (ABNORMAL) COMPREHENSIVE METABOLIC PANEL (08/11/2021 5:24 AM CDT) [facility] [address] Glucose 111(H) 70 - 105 mg/dL 08/11/2021 10:02 AM CDT [facility] Sodium 141 136 - 145 mmol/L 08/11/2021 10:02 AM [facility] Potassium 5.0 3.5 - 5.1 mmol/L 08/11/2021 10:02 AM [facility] Chloride 104 98 - 107 mmol/L 08/11/2021 10:02 AM [facility] CO2 25 23 - 31 mmol/L 08/11/2021 10:02 AM [facility] Calcium 10.0 8.4 - 10.4 mg/dL 08/11/2021 10:02 AM [facility] Anion Gap 12 8 - 18 mmol/L 08/11/2021 10:02 AM [facility] BUN 28(H) 8.9 - 20.6 mg/dL 08/11/2021 10:02 AM [facility] Creatinine 0.77 0.72 - 1.25 mg/dL 08/11/2021 10:02 AM [facility] Alkaline Phosphatase 117 40 - 150 U/L 08/11/2021 10:02 AM [facility] ALT 16 0 - 61 U/L 08/11/2021 10:02 AM [facility] AST 11 5 - 34 U/L 08/11/2021 10:02 AM [facility] Protein Total 7.1 6.4 - 8.3 gm/dL 08/11/2021 10:02 AM [facility] Albumin 3.4(L) 3.5 - 5.2 gm/dL 08/11/2021 10:02 AM CDT [facility] Bilirubin Total 0.3 0.2 - 1.2 mg/dL 08/11/2021 10:02 AM CDT [facility] eGFR by CKD-EPI >90 >=90 mL/min/1.7 3 m2 08/11/2021 10:02 AM CDT [facility] Blood BLOOD SPECIMEN / Unknown Venipuncture / Unknown 08/11/2021 5:24 AM CDT 08/11/2021 9:25 AM CDT Narrative [facility] - 08/11/2021 10:02 AM CDT eGFR result was calculated using the updated CKD-EPI Creatinine Equations (2020). Prior to go live 2021 the eGFR was calculated using the MDRD calculation. Please note Reference Range change. us Vinicio Quintanilla MD LAB - CHEMISTRY ORDERABLES Final Result Performing Organization Address City/State/[facility] Co de Phone Number [facility] [address] [place], [place] [phone] documented in this encounter Visit Diagnoses Not on filedocumented in this encounter Care Teams Occupational Health Coordinator Relationship Specialty Start Date End Date Pepe Martel MD [address] [facility] [address] [place] [address] PCP - General 08/14/16 documented as of this encounter
--- OUTSIDE RECORDS SUMMARY | 2024-12-28 17:49 | XMS_ITS | Encounter Summary ---
Author Organization [facility] Address [address] [place] [address] Care Team Providers Care Blintze Roller Name Role Phone Pepe Martel MD Primary Care Provider [phone] Encounter Details Date Type Department Care Team (Late st Contact Info) Description 07/18/2021 Lab Requisition [facility] [address] [place] [address] [place] [address] [place] [address] Social History Tobacco Use Types Packs/Day Years [...] W AUTO DIFFERENTIAL STAT 07/17/2021 3:19 AM LASER ENGRAVER documented in this encounter Results * (ABNORMAL) CBC WITH DIFFERENTIAL (07/17/2021 3:19 AM LASER ENGRAVER) WBC 9.8 4.4 - 10.7 x10E9/L 07/18/2021 8:30 AM LASER ENGRAVER [facility] WBC Corrected 07/18/2021 8:30 AM LASER ENGRAVER [facility] RBC 4.38 3.80 - 5.40 x10E12/L 07/18/2021 8:30 AM LASER ENGRAVER [facility] Hemoglobin 11.5(L) 12.0 - 17.6 gm/dL 07/18/2021 8:30 AM LASER ENGRAVER [facility] Hematocrit 36.0 35.2 - 51.7 % 07/18/2021 8:30 AM LASER ENGRAVER [facility] MCV 82.2 80.7 - 98.3 fl 07/18/2021 8:30 AM LASER ENGRAVER [facility] MCH 26.3(L) 26.7 - 34.0 pg 07/18/2021 8:30 AM LASER ENGRAVER [facility] MCHC 31.9 30.8 - 35.9 gm/dL 07/18/2021 8:30 AM LASER ENGRAVER [facility] Platelet Count 528(H) 153 - 416 x10E9/L 07/18/2021 8:30 AM [facility] RDW-CV 13.6 12.1 - 14.9 % 07/18/2021 8:30 AM [facility] MPV 9.5 9.4 - 12.9 fl 07/18/2021 8:30 AM [facility] Neutrophils % 67.2 44.0 - 73.0 % 07/18/2021 8:30 AM [facility] Lymphocytes % 17.3(L) 20.0 - 43.0 % 07/18/2021 8:30 AM [facility] Monocytes % 10.9 5.0 - 13.0 % 07/18/2021 8:30 AM [facility] Eosinophils % 3.5 0.0 - 6.0 % 07/18/2021 8:30 AM [facility] Basophils % 0.4 0.0 - 2.0 % 07/18/2021 8:30 AM [facility] Immature Granulocytes 0.7 0 - 1 % 07/18/2021 8:30 AM [facility] Neutrophil Absolute 6.57 2.01 - 7.14 x10E9/L 07/18/2021 8:30 AM [facility] Lymphocytes Absolute 1.69 1.07 - 3.94 x10E9/L 07/18/2021 8:30 AM [facility] Monocytes Absolute 1.07 0.26 - 1.07 x10E9/L 07/18/2021 8:30 AM [facility] Eosinophils Absolute 0.34 0 - 0.47 x10E9/L 07/18/2021 8:30 AM [facility] Basophils Absolute 0.04 0 - 0.08 x10E9/L 07/18/2021 8:30 AM [facility] Immature Granulocytes Absolute 0.07(H) 0.00 - 0.06 x10E9/L 07/18/2021 8:30 AM [facility] nRBC Auto 0 /100 WBC 07/18/2021 8:30 AM [facility] Blood BLOOD SPECIMEN / Unknown Venipuncture / Unknown 07/17/2021 3:19 AM LASER ENGRAVER 07/18/2021 8:20 AM [facility] Vinicio Quintanilla MD LAB - HEMATOLOGY ORDERABLES Giselle adams Result [facility] [address] [place] [address] documented in this encounter Visit Diagnoses Not on filedocumented in this encounter Care Teams Blintze Roller Relationship Specialty Start Date End Date Pepe Martel MD [facility] [address] [facility] [address] [place] [address] PCP - General 08/14/16 documented as of this encounter
--- OUTSIDE RECORDS SUMMARY | 2024-12-28 17:49 | XMS_ITS | Encounter Summary ---
Author Organization [facility] Address [address] [place] [address] Care Team Providers Care Ct Mri Technologist Name Role Phone Pepe Martel MD Primary Care Provider [phone] Encounter Details Date Type Department Care Team (Late st Contact Info) Description 05/16/2021 Lab Requisition [facility] [address] [place] [address] Davon Laws MD [address] [place] [address] Social History Tobacco Use Types [...] REFLEX TO CULTURE Routine 05/16/2021 5:30 AM POWER TRANSMISSION ENGINEER URINALYSIS REFLEX MICROSCOPIC REFLEX CULTURE STAT 05/16/2021 5:30 AM POWER TRANSMISSION ENGINEER CULTURE URINE Routine 05/16/2021 5:30 AM POWER TRANSMISSION ENGINEER CBC W AUTO DIFFERENTIAL STAT 05/16/2021 5:30 AM POWER TRANSMISSION ENGINEER documented in this encounter Results * CULTURE URINE (05/16/2021 5:30 AM POWER TRANSMISSION ENGINEER) Culture Urine No growth (<100 CFU/mL) [place] 05/17/2021 2:15 PM POWER TRANSMISSION ENGINEER [facility] Urine URINE SPECIMEN OBTAINED BY CLEAN CATCH PROCEDURE / Unknown Collection / Unknown 05/16/2021 5:30 AM POWER TRANSMISSION ENGINEER 05/16/2021 8:37 AM POWER TRANSMISSION ENGINEER Davon Laws MD LAB - MICROBIOLOGY ORDERABLES Fi nal Result [facility] [address] [place], [place] [address], [facility] [phone] * (ABNORMAL) URINE MICROSCOPIC ONLY REFLEX TO CULTURE (05/16/2021 5:30 AM POWER TRANSMISSION ENGINEER) Reflex Status Culture to follow 05/16/2021 8:53 AM POWER TRANSMISSION ENGINEER [facility] RBC UA 6-10(A) None Seen, 0-2, 3-5 # /hpf 05/16/2021 8:53 AM POWER TRANSMISSION ENGINEER [facility] WBC UA 6-10(A) None Seen, 0-5 # /hpf 05/16/2021 8:53 AM POWER TRANSMISSION ENGINEER [facility] Bacteria UA None Seen None Seen 05/16/2021 8:53 AM POWER TRANSMISSION ENGINEER [facility] Squamous Epithelial Cells 3-5 None Seen, 0-2, 3-5 /hpf 05/16/2021 8:53 AM POWER TRANSMISSION ENGINEER [facility] Calcium Oxalate Crystals Occasional( A) None seen /HPF 05/16/2021 8:53 AM POWER TRANSMISSION ENGINEER [facility] Urine URINE SPECIMEN OBTAINED BY CLEAN CATCH PROCEDURE / Unknown Collection / Unknown 05/16/2021 5:30 AM POWER TRANSMISSION ENGINEER 05/16/2021 8:37 AM POWER TRANSMISSION ENGINEER Narrative [facility] - 05/16/2021 8:53 AM POWER TRANSMISSION ENGINEER us Davon Laws MD LAB - URINALYSIS ORDERABLES Giselle l Result [facility] [address] [place] [address] * (ABNORMAL) CBC WITH DIFFERENTIAL (05/16/2021 5:30 AM POWER TRANSMISSION ENGINEER) WBC 7.2 4.4 - 10.7 x10E9/L 05/16/2021 8:44 AM POWER TRANSMISSION ENGINEER [facility] WBC Corrected 05/16/2021 8:44 AM POWER TRANSMISSION ENGINEER [facility] RBC 4.09 3.80 - 5.40 x10E12/L 05/16/2021 8:44 AM POWER TRANSMISSION ENGINEER [facility] Hemoglobin 11.2(L) 12.0 - 17.6 gm/dL 05/16/2021 8:44 AM POWER TRANSMISSION ENGINEER [facility] Hematocrit 35.9 35.2 - 51.7 % 05/16/2021 8:44 AM POWER TRANSMISSION ENGINEER [facility] MCV 87.8 80.7 - 98.3 fl 05/16/2021 8:44 AM POWER TRANSMISSION ENGINEER [facility] MCH 27.4 26.7 - 34.0 pg 05/16/2021 8:[address] [facility] MCHC 31.2 30.8 - 35.9 gm/dL 05/16/2021 8:[address] [facility] Platelet Count 384 153 - 416 x10E9/L 05/16/2021 8:[address] [facility] RDW-CV 12.3 12.1 - 14.9 % 05/16/2021 8:[address] [facility] MPV 10.0 9.4 - 12.9 fl 05/16/2021 8:[address] [facility] Neutrophils % 67.2 44.0 - 73.0 % 05/16/2021 8:[address] [facility] Lymphocytes % 17.2(L) 20.0 - 43.0 % 05/16/2021 8:[address] [facility] Monocytes % 11.2 5.0 - 13.0 % 05/16/2021 8:[address] [facility] Eosinophils % 4.0 0.0 - 6.0 % 05/16/2021 8:[address] [facility] Basophils % 0.3 0.0 - 2.0 % 05/16/2021 8:[address] [facility] Immature Granulocytes 0.1 0 - 1 % 05/16/2021 8:[address] [facility] Neutrophil Absolute 4.84 2.01 - 7.14 x10E9/L 05/16/2021 8:[address] [facility] Lymphocytes Absolute 1.24 1.07 - 3.94 x10E9/L 05/16/2021 8:[address] [facility] Monocytes Absolute 0.81 0.26 - 1.07 x10E9/L 05/16/2021 8:[address] [facility] Eosinophils Absolute 0.29 0 - 0.47 x10E9/L 05/16/2021 8:[address] [facility] Basophils Absolute 0.02 0 - 0.08 x10E9/L 05/16/2021 8:[address] [facility] Immature Granulocytes Absolute 0.01 0.00 - 0.06 x10E9/L 05/16/2021 8:[address] [facility] nRBC Auto 0 /100 WBC 05/16/2021 8:[address] [facility] Blood BLOOD SPECIMEN / Unknown Venipuncture / Unknown 05/16/2021 5:30 AM POWER TRANSMISSION ENGINEER 05/16/2021 8:37 AM POWER TRANSMISSION ENGINEER Davon Laws MD LAB - HEMATOLOGY ORDERABLES Giselle bryan Result [facility] [address] [place] [address] * (ABNORMAL) URINALYSIS REFLEX MICROSCOPIC REFLEX CULTURE (05/16/2021 5:30 AM POWER TRANSMISSION ENGINEER) Color UA Yellow Straw, Yellow 05/16/2021 8:[address] [facility] Clarity UA Slt Cloudy(A) Clear 05/16/2021 8:[address] [facility] Glucose UA Negative Negative 05/16/2021 8:[address] [facility] Bilirubin UA Negative Negative 05/16/2021 8:[address] [facility] Ketone UA Negative Negative 05/16/2021 8:[address] [facility] Specific [place] UA 1.024 1.005 - 1.030 05/16/2021 8:[address] [facility] Blood UA Negative Negative 05/16/2021 8:[address] [facility] pH UA 6.0 5.0 - 8.0 pH 05/16/2021 8:[address] [facility] Protein UA Negative Negative 05/16/2021 8:[address] [facility] Urobilinogen UA Negative Negative mg/dL 05/16/2021 8:[address] [facility] Nitrite UA Negative Negative 05/16/2021 8:[address] [facility] Leukocyte Esterase UA Trace(A) Negative 05/16/2021 8:[address] [facility] Urine Microscopy Urine microscopy to follow 05/16/2021 8:[address] [facility] Reflex Status Culture to follow 05/16/2021 8:[address] [facility] Urine URINE SPECIMEN OBTAINED BY CLEAN CATCH PROCEDURE / Unknown Collection / Unknown 05/16/2021 5:30 AM POWER TRANSMISSION ENGINEER 05/16/2021 8:37 AM POWER TRANSMISSION ENGINEER Narrative [facility] - 05/16/2021 8:51 AM POWER TRANSMISSION ENGINEER Ascorbic Acid can cause false negative urine strip tests for blood, glucose, nitrite, and bilirubin. us Davon Laws MD LAB - URINALYSIS ORDERABLES Giselle adams Result [facility] [address] [place] [address] documented in this encounter Visit Diagnoses Not on filedocumented in this encounter Care Teams Ct Mri Technologist Relationship Specialty Start Date End Date Pepe Martel MD [address] [place] [address] [address] [place] [address] PCP - General 08/14/16 documented as of this encounter
--- OUTSIDE RECORDS SUMMARY | 2024-12-28 17:49 | XMS_ITS | Encounter Summary ---
Author Organization [facility] Address [address] [place] [address] Care Team Providers Care Director Sales Training Name Role Phone Pepe Martel MD Primary Care Provider [phone] Encounter Details Date Type Department Care Team (Late st Contact Info) Description 08/07/2021 Lab Requisition [facility] [address] [place] [address] [place] [address] [place] [address] Social History Tobacco Use Types Packs/Day Years [...] COMPREHENSIVE METABOLIC PANEL (08/07/2021 5:33 AM CDT) [facility] Glucose 120(H) 70 - 105 mg/dL 08/07/2021 10:27 AM CDT [facility] Sodium 144 136 - 145 mmol/L 08/07/2021 10:27 AM CDT [facility] Potassium 4.5 3.5 - 5.1 mmol/L 08/07/2021 10:27 AM CDT [facility] Chloride 109(H) 98 - 107 mmol/L 08/07/2021 10:27 AM CDT [facility] CO2 22(L) 23 - 31 mmol/L 08/07/2021 10:27 AM CDT [facility] Calcium 9.6 8.4 - 10.4 mg/dL 08/07/2021 10:27 AM CDT [facility] Anion Gap 13 8 - 18 mmol/L 08/07/2021 10:27 AM CDT [facility] BUN 25(H) 8.9 - 20.6 mg/dL 08/07/2021 10:27 AM CDT [facility] Creatinine 0.89 0.72 - 1.25 mg/dL 08/07/2021 10:27 AM CDT [facility] Alkaline Phosphatase 110 40 - 150 U/L 08/07/2021 10:27 AM CDT [facility] ALT 19 0 - 61 U/L 08/07/2021 10:27 AM CDT [facility] AST 13 5 - 34 U/L 08/07/2021 10:27 AM CDT [facility] Protein Total 6.9 6.4 - 8.3 gm/dL 08/07/2021 10:27 AM CDT [facility] Albumin 3.4(L) 3.5 - 5.2 gm/dL 08/07/2021 10:27 AM CDT [facility] Bilirubin Total 0.3 0.2 - 1.2 mg/dL 08/07/2021 10:27 AM CDT [facility] eGFR by CKD-EPI >90 >=90 mL/min/1.7 3 m2 08/07/2021 10:27 AM CDT [facility] Blood BLOOD SPECIMEN / Unknown Venipuncture / Unknown 08/07/2021 5:33 AM CDT 08/07/2021 9:34 AM CDT Narrative [facility] - 08/07/2021 10:27 AM CDT eGFR result was calculated using the updated CKD-EPI Creatinine Equations (2020). Prior to go live 2021 the eGFR was calculated using the MDRD calculation. Please note Reference Range change. us Vinicio Quintanilla MD LAB - CHEMISTRY ORDERABLES Final Result [facility] [address] [place], [place] [id number] * (ABNORMAL) CBC WITH DIFFERENTIAL (08/07/2021 5:33 AM CDT) [facility] Signature WBC 9.0 4.4 - 10.7 x10E9/L 08/07/2021 9:48 AM CDT [facility] WBC Corrected 08/07/2021 9:48 AM CDT [facility] RBC 3.78(L) 3.80 - 5.40 x10E12/L 08/07/2021 9:48 AM CDT [facility] Hemoglobin 9.9(L) 12.0 - 17.6 gm/dL 08/07/2021 9:48 AM CDT [facility] Hematocrit 33.0(L) 35.2 - 51.7 % 08/07/2021 9:48 AM CDT [facility] MCV 87.3 80.7 - 98.3 fl 08/07/2021 9:48 AM CDT [facility] MCH 26.2(L) 26.7 - 34.0 pg 08/07/2021 9:48 AM CDT [facility] MCHC 30.0(L) 30.8 - 35.9 gm/dL 08/07/2021 9:[facility] Platelet Count 439(H) 153 - 416 x10E9/L 08/07/2021 9:48 AM [facility] RDW-CV 16.0(H) 12.1 - 14.9 % 08/07/2021 9:48 AM [facility] MPV 10.6 9.4 - 12.9 fl 08/07/2021 9:48 AM [facility] Neutrophils % 68.5 44.0 - 73.0 % 08/07/2021 9:48 AM [facility] Lymphocytes % 16.3(L) 20.0 - 43.0 % 08/07/2021 9:48 AM [facility] Monocytes % 10.0 5.0 - 13.0 % 08/07/2021 9:48 AM [facility] Eosinophils % 4.4 0.0 - 6.0 % 08/07/2021 9:48 AM [facility] Basophils % 0.4 0.0 - 2.0 % 08/07/2021 9:48 AM [facility] Immature Granulocytes 0.4 0 - 1 % 08/07/2021 9:48 [facility] Neutrophil Absolute 6.19 2.01 - 7.14 x10E9/L 08/07/2021 9:48 AM [facility] Lymphocytes Absolute 1.47 1.07 - 3.94 x10E9/L 08/07/2021 9:48 AM T [facility] Monocytes Absolute 0.90 0.26 - 1.07 x10E9/L 08/07/2021 9:48 AM CDT [facility] Eosinophils Absolute 0.40 0 - 0.47 x10E9/L 08/07/2021 9:48 AM CDT [facility] Basophils Absolute 0.04 0 - 0.08 x10E9/L 08/07/2021 9:48 AM CDT [facility] Immature Granulocytes Absolute 0.04 0.00 - 0.06 x10E9/L 08/07/2021 9:48 AM CDT [facility] nRBC Auto 0 /100 WBC 08/07/2021 9:48 AM CDT [facility] Blood BLOOD SPECIMEN / Unknown Venipuncture / Unknown 08/07/2021 5:33 AM CDT 08/07/2021 9:34 AM CDT us Vinicio Quintanilla MD LAB - HEMATOLOGY ORDERABLES Giselle adams Result Performing Organization Address City/State/[facility] Co de Phone Number [facility] [address] [place] [address] documented in this encounter Visit Diagnoses Not on filedocumented in this encounter Care Teams Director Sales Training Relationship Specialty Start Date End Date Pepe Martel MD [address] [place] [id number] PCP - General 08/14/16 documented as of this encounter
--- OUTSIDE RECORDS SUMMARY | 2024-12-28 17:50 | XMS_ITS | Encounter Summary ---
Author Organization [facility] Address [address] [place] [address] Care Team Providers Care Automotive Shop Foreman Name Role Phone Pepe Martel MD Primary Care Provider [phone] Encounter Details Date Type Department Care Team (Late st Contact Info) Description 03/13/2021 Lab Requisition [facility] [address] [place] [address] Andrés Ferro MD [address] [place] [address] [address] [place] [address] Social History Tobacco Use Types Packs/Day Years [...] - 38.4 sec 03/13/2021 3:32 PM CDT [facility] Blood BLOOD SPECIMEN / Unknown Venipuncture / Unknown 03/13/2021 4:00 AM CDT 03/13/2021 2:55 PM CDT Narrative [facility] - 03/13/2021 3:32 PM CDT Heparin Therapeutic Range for PTT: 69.0 - 110.0 seconds. us Andrés Ferro MD LAB - COAGULATION ORDERABL ES Final Result [facility] [address] [place] [address] * PT-INR (03/13/2021 4:00 AM CDT) Pathologist [facility] PT 14.4 12.1 - 14.8 sec 03/13/2021 3:31 PM CDT [facility] INR 1.1 0.9 - 1.1 03/13/2021 3:31 PM CDT [facility] Blood BLOOD SPECIMEN / Unknown Venipuncture / Unknown 03/13/2021 4:00 AM CDT 03/13/2021 2:55 PM CDT Narrative [facility] - 03/13/2021 3:31 PM CDT Conventional Warfarin Anticoagulant Therapy: INR Reference Range: 2.0-3.0 Intensive Warfarin Anticoagulant Therapy: INR Reference Range: 2.5-3.5 us Andrés Ferro MD LAB - COAGULATION ORDERABL ES Final Result Performing Organization Address City/State/[facility] Co de Phone Number [facility] [address] [place] [address] * (ABNORMAL) CBC WITH DIFFERENTIAL (03/13/2021 4:00 AM CDT) [facility] WBC 19.7(H) 4.4 - 10.7 x10E9/L 03/13/2021 3:24 PM CDT [facility] WBC Corrected 03/13/2021 3:24 PM CDT [facility] RBC 3.53(L) 3.80 - 5.40 x10E12/L 03/13/2021 3:24 PM CDT [facility] Hemoglobin 9.6(L) 12.0 - 17.6 gm/dL 03/13/2021 3:24 PM CDT [facility] Hematocrit 32.2(L) 35.2 - 51.7 % 03/13/2021 3:24 PM CDT [facility] MCV 91.2 80.7 - 98.3 fl 03/13/2021 3:24 PM CDT [facility] MCH 27.2 26.7 - 34.0 pg 03/13/2021 3:24 PM CDT [facility] MCHC 29.8(L) 30.8 - 35.9 gm/dL 03/13/2021 3:24 PM [facility] Platelet Count 546(H) 153 - 416 x10E9/L 03/13/2021 3:24 PM [facility] RDW-CV 13.9 12.1 - 14.9 % 03/13/2021 3:24 PM [facility] MPV 11.5 9.4 - 12.9 fl 03/13/2021 3:24 PM [facility] Neutrophils % 78.6(H) 44.0 - 73.0 % 03/13/2021 3:24 PM [facility] Lymphocytes % 8.1(L) 20.0 - 43.0 % 03/13/2021 3:24 PM [facility] Monocytes % 7.3 5.0 - 13.0 % 03/13/2021 3:24 PM [facility] Eosinophils % 3.8 0.0 - 6.0 % 03/13/2021 3:24 PM [facility] Basophils % 0.4 0.0 - 2.0 % 03/13/2021 3:24 PM [facility] Immature Granulocytes 1.8(H) 0 - 1 % 03/13/2021 3:24 PM [facility] Neutrophil Absolute 15.46(H) 2.01 - 7.14 x10E9/L 03/13/2021 3:24 PM [facility] Lymphocytes Absolute 1.60 1.07 - 3.94 x10E9/L 03/13/2021 3:24 PM [facility] Monocytes Absolute 1.44(H) 0.26 - 1.07 x10E9/L 03/13/2021 3:24 PM [facility] Eosinophils Absolute 0.75(H) 0 - 0.47 x10E9/L 03/13/2021 3:24 PM [facility] Basophils Absolute 0.07 0 - 0.08 x10E9/L 03/13/2021 3:24 PM [facility] Immature Granulocytes Absolute 0.35(H) 0.00 - 0.06 x10E9/L 03/13/2021 3:24 PM [facility] nRBC Auto 0 /100 WBC 03/13/2021 3:24 PM CDT [facility] Blood BLOOD SPECIMEN / Unknown Venipuncture / Unknown 03/13/2021 4:00 AM CDT 03/13/2021 2:55 PM CDT us Andrés Ferro MD LAB - HEMATOLOGY ORDERABLE S Final Result [facility] [address] [place] [address] * (ABNORMAL) COMPREHENSIVE METABOLIC PANEL (03/13/2021 4:00 AM CDT) Glucose 104 70 - 105 mg/dL 03/13/2021 3:44 PM CDT [facility] Sodium 141 136 - 145 mmol/L 03/13/2021 3:44 PM CDT [facility] Potassium 5.4(H) 3.5 - 5.1 mmol/L 03/13/2021 3:44 PM CDT [facility] Chloride 106 98 - 107 mmol/L 03/13/2021 3:44 PM CDT [facility] CO2 18(L) 23 - 31 mmol/L 03/13/2021 3:44 PM CDT [facility] Calcium 8.7 8.4 - 10.4 mg/dL 03/13/2021 3:44 PM CDT [facility] Anion Gap 17 8 - 18 mmol/L 03/13/2021 3:44 PM CDT [facility] BUN 37(H) 8.9 - 20.6 mg/dL 03/13/2021 3:44 PM CDT [facility] Creatinine 1.43(H) 0.72 - 1.25 mg/dL 03/13/2021 3:44 PM CDT [facility] Alkaline Phosphatase 301(H) 40 - 150 U/L 03/13/2021 3:44 PM CDT [facility] ALT 43 0 - 61 U/L 03/13/2021 3:44 PM CDT [facility] AST 43(H) 5 - 34 U/L 03/13/2021 3:44 PM CDT [facility] Protein Total 7.8 6.4 - 8.3 gm/dL 03/13/2021 3:44 PM CDT [facility] Albumin 2.9(L) 3.5 - 5.2 gm/dL 03/13/2021 3:44 PM CDT [facility] Bilirubin Total 0.3 0.2 - 1.2 mg/dL 03/13/2021 3:44 PM CDT [facility] eGFR by MDRD 56(L) >60 mL/min/1.7 3m2 03/13/2021 3:44 PM CDT [facility] eGFR by MDRD >60 >60 mL/min/1.7 3m2 03/13/2021 3:44 PM CDT [facility] Blood BLOOD SPECIMEN / Unknown Venipuncture / Unknown 03/13/2021 4:00 AM CDT 03/13/2021 2:55 PM CDT us Andrés Ferro MD LAB - CHEMISTRY ORDERABLES Final Result [facility] [address] [place], [place] [id number] documented in this encounter Visit Diagnoses Not on filedocumented in this encounter Care Teams Automotive Shop Foreman Relationship Specialty Start Date End Date Pepe Martel MD [address] [place] [id number] PCP - General 08/14/16 documented as of this encounter
--- OUTSIDE RECORDS SUMMARY | 2024-12-28 17:50 | XMS_ITS | Encounter Summary ---
Author Organization [facility] Address [address] [place] [address] Care Team Providers Care De Alcoholizer Name Role Phone Pepe Martel MD Primary Care Provider [phone] Encounter Details Date Type Department Care Team (Late st Contact Info) Description 10/23/2021 Lab Requisition [facility] [address] [place] [address] [place] [address] [place] [address] Social History Tobacco Use Types Packs/Day Years [...] CBC WITH DIFFERENTIAL (10/23/2021 3:05 AM CDT) [facility] WBC 8.3 4.4 - 10.7 x10E9/L 10/23/2021 [...] 30.8 - 35.9 gm/dL 10/23/2021 10:51 AM [facility] Platelet Count 400 153 - 416 x10E9/L 10/23/2021 10:51 AM [facility] RDW-CV 13.8 12.1 - 14.9 % 10/23/2021 10:51 AM [facility] MPV 10.5 9.4 - 12.9 fl 10/23/2021 10:51 AM [facility] Neutrophils % 62.2 44.0 - 73.0 % 10/23/2021 10:51 AM [facility] Lymphocytes % 22.7 20.0 - 43.0 % 10/23/2021 10:51 AM [facility] Monocytes % 11.2 5.0 - 13.0 % 10/23/2021 10:51 AM [facility] Eosinophils % 3.0 0.0 - 6.0 % 10/23/2021 10:51 AM [facility] Basophils % 0.5 0.0 - 2.0 % 10/23/2021 10:51 AM [facility] Immature Granulocytes 0.4 0 - 1 % 10/23/2021 10:51 AM [facility] Neutrophil Absolute 5.14 2.01 - 7.14 x10E9/L 10/23/2021 10:51 AM [facility] Lymphocytes Absolute 1.87 1.07 - 3.94 x10E9/L 10/23/2021 10:51 AM [facility] Monocytes Absolute 0.92 0.26 - 1.07 x10E9/L 10/23/2021 10:51 AM [facility] Eosinophils Absolute 0.25 0 - 0.47 x10E9/L 10/23/2021 10:51 AM [facility] Basophils Absolute 0.04 0 - 0.08 x10E9/L 10/23/2021 10:51 AM [facility] Immature Granulocytes Absolute 0.03 0.00 - 0.06 x10E9/L 10/23/2021 10:51 AM [facility] nRBC Auto 0 /100 WBC 10/23/2021 10:51 AM [facility] Blood BLOOD SPECIMEN / Unknown Venipuncture / Unknown 10/23/2021 3:05 AM CDT 10/23/2021 9:43 AM CDT us Vinicio Quintanilla MD LAB - HEMATOLOGY ORDERABLES Giselle adams Result [facility] [address] [place] [address] * (ABNORMAL) COMPREHENSIVE METABOLIC PANEL (10/23/2021 3:05 AM CDT) [facility] Glucose 105 70 - 105 mg/dL 10/23/2021 11:15 AM CDT [facility] Sodium 145 136 - 145 mmol/L 10/23/2021 11:15 AM CDT [facility] Potassium 4.6 3.5 - 5.1 mmol/L 10/23/2021 11:15 AM CDT [facility] Chloride 106 98 - 107 mmol/L 10/23/2021 11:15 AM CDT [facility] CO2 26 23 - 31 mmol/L 10/23/2021 11:15 AM CDT [facility] Calcium 10.8(H) 8.4 - 10.4 mg/dL 10/23/2021 11:15 AM CDT [facility] Anion Gap 13 8 - 18 mmol/L 10/23/2021 11:15 AM CDT [facility] BUN 36(H) 8.9 - 20.6 mg/dL 10/23/2021 11:15 AM CDT [facility] Creatinine 1.17 0.72 - 1.25 mg/dL 10/23/2021 11:15 AM CDT [facility] Alkaline Phosphatase 151(H) 40 - 150 U/L 10/23/2021 11:15 AM CDT [facility] ALT 23 0 - 61 U/L 10/23/2021 11:15 AM CDT [facility] AST 13 5 - 34 U/L 10/23/2021 11:15 AM CDT [facility] Protein Total 7.8 6.4 - 8.3 gm/dL 10/23/2021 11:15 AM CDT [facility] Albumin 3.9 3.5 - 5.2 gm/dL 10/23/2021 11:15 AM CDT [facility] Bilirubin Total 0.2 0.2 - 1.2 mg/dL 10/23/2021 11:15 AM CDT [facility] eGFR by CKD-EPI 83(L) >=90 mL/min/1.7 3 m2 10/23/2021 11:15 AM CDT [facility] Blood BLOOD SPECIMEN / Unknown Venipuncture / Unknown 10/23/2021 3:05 AM CDT 10/23/2021 9:43 AM CDT us Vinicio Quintanilla MD LAB - CHEMISTRY ORDERABLES Final Result [facility] [address] [place] [address] documented in this encounter Visit Diagnoses Not on filedocumented in this encounter Care Teams De Alcoholizer Relationship Specialty Start Date End Date Pepe Martel MD [address] [place] [address] [address] [place] [address] PCP - General 08/14/16 documented as of this encounter
--- OUTSIDE RECORDS SUMMARY | 2024-12-28 17:50 | XMS_ITS | Encounter Summary ---
Author Organization [facility] Address [address] [place] [address] Care Team Providers Care Securities Clerk Name Role Phone Pepe Martel MD Primary Care Provider [phone] Encounter Details Date Type Department Care Team (Late st Contact Info) Description 10/09/2021 Lab Requisition [facility] [address] [place] [address] [place] [address] [place] [address] Social History Tobacco Use Types Packs/Day Years [...] 30.8 - 35.9 gm/dL 10/09/2021 9:11 AM [facility] Platelet Count 420(H) 153 - 416 x10E9/L 10/09/2021 9:11 AM [facility] RDW-CV 14.0 12.1 - 14.9 % 10/09/2021 9:11 AM [facility] MPV 10.8 9.4 - 12.9 fl 10/09/2021 9:11 AM [facility] Neutrophils % 62.7 44.0 - 73.0 % 10/09/2021 9:11 AM [facility] Lymphocytes % 22.4 20.0 - 43.0 % 10/09/2021 9:11 AM [facility] Monocytes % 11.0 5.0 - 13.0 % 10/09/2021 9:11 AM [facility] Eosinophils % 3.2 0.0 - 6.0 % 10/09/2021 9:11 AM [facility] Basophils % 0.5 0.0 - 2.0 % 10/09/2021 9:11 AM [facility] Immature Granulocytes 0.2 0 - 1 % 10/09/2021 9:11 AM [facility] Neutrophil Absolute 5.49 2.01 - 7.14 x10E9/L 10/09/2021 9:11 AM [facility] Lymphocytes Absolute 1.96 1.07 - 3.94 x10E9/L 10/09/2021 9:11 AM [facility] Monocytes Absolute 0.96 0.26 - 1.07 x10E9/L 10/09/2021 9:11 AM [facility] Eosinophils Absolute 0.28 0 - 0.47 x10E9/L 10/09/2021 9:11 AM [facility] Basophils Absolute 0.04 0 - 0.08 x10E9/L 10/09/2021 9:11 AM [facility] Immature Granulocytes Absolute 0.02 0.00 - 0.06 x10E9/L 10/09/2021 9:11 AM [facility] nRBC Auto 0 /100 WBC 10/09/2021 9:11 AM [facility] Blood BLOOD SPECIMEN / Unknown Venipuncture / Unknown 10/09/2021 5:27 AM CDT 10/09/2021 8:25 AM CDT us Vinicio Quintanilla MD LAB - HEMATOLOGY ORDERABLES Giselle adams Result [facility] [address] [place] [address] * (ABNORMAL) COMPREHENSIVE METABOLIC PANEL (10/09/2021 5:27 AM CDT) Glucose 123(H) 70 - 105 mg/dL 10/09/2021 9:28 AM CDT [facility] Sodium 143 136 - 145 mmol/L 10/09/2021 9:28 AM CDT [facility] Potassium 4.6 3.5 - 5.1 mmol/L 10/09/2021 9:28 AM CDT [facility] Chloride 105 98 - 107 mmol/L 10/09/2021 9:28 AM CDT [facility] CO2 24 23 - 31 mmol/L 10/09/2021 9:28 AM CDT [facility] Calcium 10.0 8.4 - 10.4 mg/dL 10/09/2021 9:28 AM CDT [facility] Anion Gap 14 8 - 18 mmol/L 10/09/2021 9:28 AM CDT [facility] BUN 31(H) 8.9 - 20.6 mg/dL 10/09/2021 9:28 AM CDT [facility] Creatinine 0.93 0.72 - 1.25 mg/dL 10/09/2021 9:28 AM CDT [facility] Alkaline Phosphatase 150 40 - 150 U/L 10/09/2021 9:28 AM CDT [facility] ALT 25 0 - 61 U/L 10/09/2021 9:28 AM CDT [facility] AST 20 5 - 34 U/L 10/09/2021 9:28 AM CDT [facility] Protein Total 7.4 6.4 - 8.3 gm/dL 10/09/2021 9:28 AM CDT [facility] Albumin 3.6 3.5 - 5.2 gm/dL 10/09/2021 9:28 AM CDT [facility] Bilirubin Total 0.4 0.2 - 1.2 mg/dL 10/09/2021 9:28 AM CDT [facility] eGFR by CKD-EPI >90 >=90 mL/min/1.7 3 m2 10/09/2021 9:28 AM CDT [facility] Blood BLOOD SPECIMEN / Unknown Venipuncture / Unknown 10/09/2021 5:27 AM CDT 10/09/2021 8:25 AM CDT us Vinicio Quintanilla MD LAB - CHEMISTRY ORDERABLES Final Result Performing Organization Address City/State/[facility] Co de Phone Number [facility] [address] [place], [place] [id number] documented in this encounter Visit Diagnoses Not on filedocumented in this encounter Care Teams Securities Clerk Relationship Specialty Start Date End Date Pepe Martel MD [address] [place] [address] [address] [place] [address] PCP - General 08/14/16 documented as of this encounter
--- OUTSIDE RECORDS SUMMARY | 2024-12-28 17:50 | XMS_ITS | Encounter Summary ---
Author Organization [facility] Address [address] [place] [address] Care Team Providers Care Blemish Remover Name Role Phone Pepe Martel MD Primary Care Provider Encounter Details Date Type Department Care Team (Late st Contact Info) Description 09/08/2021 Lab Requisition [facility] [address] [place] [address] [place] [address] [place] [address] Social History Tobacco Use Types Packs/Day Years [...] 30.8 - 35.9 gm/dL 09/08/2021 9:[address] [facility] Platelet Count 489(H) 153 - 416 x10E9/L 09/08/2021 9:[address] [facility] RDW-CV 14.2 12.1 - 14.9 % 09/08/2021 9:[address] [facility] MPV 10.2 9.4 - 12.9 fl 09/08/2021 9:[address] [facility] Neutrophils % 58.8 44.0 - 73.0 % 09/08/2021 9:[address] [facility] Lymphocytes % 26.0 20.0 - 43.0 % 09/08/2021 9:[address] [facility] Monocytes % 11.4 5.0 - 13.0 % 09/08/2021 9:[address] [facility] Eosinophils % 3.0 0.0 - 6.0 % 09/08/2021 9:[address] [facility] Basophils % 0.4 0.0 - 2.0 % 09/08/2021 9:[address] [facility] Immature Granulocytes 0.4 0 - 1 % 09/08/2021 9:[address] [facility] Neutrophil Absolute 4.51 2.01 - 7.14 x10E9/L 09/08/2021 9:[address] [facility] Lymphocytes Absolute 1.99 1.07 - 3.94 x10E9/L 09/08/2021 9:[address] [facility] Monocytes Absolute 0.87 0.26 - 1.07 x10E9/L 09/08/2021 9:[address] [facility] Eosinophils Absolute 0.23 0 - 0.47 x10E9/L 09/08/2021 9:[address] [facility] Basophils Absolute 0.03 0 - 0.08 x10E9/L 09/08/2021 9:[address] [facility] Immature Granulocytes Absolute 0.03 0.00 - 0.06 x10E9/L 09/08/2021 9:[address] [facility] nRBC Auto 0 /100 WBC 09/08/2021 9:[address] [facility] Blood BLOOD SPECIMEN / Unknown Venipuncture / Unknown 09/08/2021 4:50 AM CDT 09/08/2021 9:12 AM CDT us Vinicio Quintanilla MD LAB - HEMATOLOGY ORDERABLES Giselle adams Result [facility] [address] [place] [address] * (ABNORMAL) COMPREHENSIVE METABOLIC PANEL (09/08/2021 4:50 AM CDT) [facility] Glucose 91 70 - 105 mg/dL 09/08/2021 10:10 AM CDT [facility] Sodium 139 136 - 145 mmol/L 09/08/2021 10:10 AM CDT [facility] Potassium 4.8 3.5 - 5.1 mmol/L 09/08/2021 10:10 AM CDT [facility] Chloride 101 98 - 107 mmol/L 09/08/2021 10:10 AM CDT [facility] CO2 27 23 - 31 mmol/L 09/08/2021 10:10 AM CDT [facility] Calcium 10.1 8.4 - 10.4 mg/dL 09/08/2021 10:10 AM CDT [facility] Anion Gap 11 8 - 18 mmol/L 09/08/2021 10:10 AM CDT [facility] BUN 28(H) 8.9 - 20.6 mg/dL 09/08/2021 10:10 AM CDT [facility] Creatinine 0.92 0.72 - 1.25 mg/dL 09/08/2021 10:10 AM CDT [facility] Alkaline Phosphatase 151(H) 40 - 150 U/L 09/08/2021 10:10 AM CDT [facility] ALT 31 0 - 61 U/L 09/08/2021 10:10 AM CDT [facility] AST 15 5 - 34 U/L 09/08/2021 10:10 AM CDT [facility] Protein Total 7.9 6.4 - 8.3 gm/dL 09/08/2021 10:10 AM CDT [facility] Albumin 3.8 3.5 - 5.2 gm/dL 09/08/2021 10:10 AM CDT [facility] Bilirubin Total 0.2 0.2 - 1.2 mg/dL 09/08/2021 10:10 AM CDT [facility] eGFR by CKD-EPI >90 >=90 mL/min/1.7 3 m2 09/08/2021 10:10 AM CDT [facility] Blood BLOOD SPECIMEN / Unknown Venipuncture / Unknown 09/08/2021 4:50 AM CDT 09/08/2021 9:12 AM CDT Narrative [facility] - 09/08/2021 10:10 AM CDT eGFR result was calculated using the updated CKD-EPI Creatinine Equations (2020). Prior to go live 2021 the eGFR was calculated using the MDRD calculation. Please note Reference Range change. us Vinicio Quintanilla MD LAB - CHEMISTRY ORDERABLES Final Result Performing Organization Address City/State/[facility] Co de Phone Number [facility] [address] [place] [address] documented in this encounter Visit Diagnoses Not on filedocumented in this encounter Care Teams Blemish Remover Relationship Specialty Start Date End Date Pepe Martel MD [address] [place] [address] [address] [place] [address] PCP - General 08/14/16 documented as of this encounter
--- OUTSIDE RECORDS SUMMARY | 2024-12-28 17:50 | XMS_ITS | Encounter Summary ---
Author Organization [facility] Address [address] [place] [address] Care Team Providers Care Roughing Mill Operator Name Role Phone Pepe Martel MD Primary Care Provider [phone] Encounter Details Date Type Department Care Team (Late st Contact Info) Description 09/04/2021 Lab Requisition [facility] [address] [place] [address] [place] [address] [place] [address] Social History Tobacco Use Types Packs/Day Years [...] COMPREHENSIVE METABOLIC PANEL (09/04/2021 3:10 AM CDT) [facility] Glucose 103 70 - 105 mg/dL 09/04/2021 10:10 AM CDT [facility] Sodium 141 136 - 145 mmol/L 09/04/2021 10:10 AM CDT [facility] Potassium 4.8 3.5 - 5.1 mmol/L 09/04/2021 10:10 AM CDT [facility] Chloride 102 98 - 107 mmol/L 09/04/2021 10:10 AM CDT [facility] CO2 23 23 - 31 mmol/L 09/04/2021 10:10 AM CDT [facility] Calcium 10.2 8.4 - 10.4 mg/dL 09/04/2021 10:10 AM CDT [facility] Anion Gap 16 8 - 18 mmol/L 09/04/2021 10:10 AM CDT [facility] BUN 31(H) 8.9 - 20.6 mg/dL 09/04/2021 10:10 AM CDT [facility] Creatinine 0.95 0.72 - 1.25 mg/dL 09/04/2021 10:10 AM CDT [facility] Alkaline Phosphatase 151(H) 40 - 150 U/L 09/04/2021 10:10 AM CDT [facility] ALT 30 0 - 61 U/L 09/04/2021 10:10 AM CDT [facility] AST 17 5 - 34 U/L 09/04/2021 10:10 AM CDT [facility] Protein Total 7.9 6.4 - 8.3 gm/dL 09/04/2021 10:10 AM CDT [facility] Albumin 3.7 3.5 - 5.2 gm/dL 09/04/2021 10:10 AM CDT [facility] Bilirubin Total 0.2 0.2 - 1.2 mg/dL 09/04/2021 10:10 AM CDT [facility] eGFR by CKD-EPI >90 >=90 mL/min/1.7 3 m2 09/04/2021 10:10 AM CDT [facility] Blood BLOOD SPECIMEN / Unknown Venipuncture / Unknown 09/04/2021 3:10 AM CDT 09/04/2021 9:40 AM CDT Narrative [facility] - 09/04/2021 10:10 AM CDT eGFR result was calculated using the updated CKD-EPI Creatinine Equations (2020). Prior to go live 2021 the eGFR was calculated using the MDRD calculation. Please note Reference Range change. us Vinicio Quintanilla MD LAB - CHEMISTRY ORDERABLES Final Result [facility] [address] [place] [address] * (ABNORMAL) CBC WITH DIFFERENTIAL (09/04/2021 3:10 AM CDT) WBC 7.7 4.4 - 10.7 x10E9/L 09/04/2021 9:53 AM CDT [facility] WBC Corrected 09/04/2021 9:53 AM CDT [facility] RBC 4.39 3.80 - 5.40 x10E12/L 09/04/2021 9:53 AM CDT [facility] Hemoglobin 11.6(L) 12.0 - 17.6 gm/dL 09/04/2021 9:53 AM CDT [facility] Hematocrit 37.8 35.2 - 51.7 % 09/04/2021 9:53 AM CDT [facility] MCV 86.1 80.7 - 98.3 fl 09/04/2021 9:53 AM CDT [facility] MCH 26.4(L) 26.7 - 34.0 pg 09/04/2021 9:53 AM CDT [facility] MCHC 30.7(L) 30.8 - 35.9 gm/dL 09/04/2021 9:53 AM CDT [facility] Platelet Count 512(H) 153 - 416 x10E9/L 09/04/2021 9:53 AM CDT [facility] RDW-CV 14.4 12.1 - 14.9 % 09/04/2021 9:53 AM CDT [facility] MPV 10.1 9.4 - 12.9 fl 09/04/2021 9:53 AM CDT [facility] Neutrophils % 58.5 44.0 - 73.0 % 09/04/2021 9:53 AM CDT [facility] Lymphocytes % 27.7 20.0 - 43.0 % 09/04/2021 9:53 AM CDT [facility] Monocytes % 10.1 5.0 - 13.0 % 09/04/2021 9:53 AM CDT [facility] Eosinophils % 2.9 0.0 - 6.0 % 09/04/2021 9:53 AM CDT [facility] Basophils % 0.5 0.0 - 2.0 % 09/04/2021 9:53 AM CDT [facility] Immature Granulocytes 0.3 0 - 1 % 09/04/2021 9:53 AM CDT [facility] Neutrophil Absolute 4.48 2.01 - 7.14 x10E9/L 09/04/2021 9:53 AM CDT [facility] Lymphocytes Absolute 2.12 1.07 - 3.94 x10E9/L 09/04/2021 9:53 AM CDT [facility] Monocytes Absolute 0.77 0.26 - 1.07 x10E9/L 09/04/2021 9:53 AM CDT [facility] Eosinophils Absolute 0.22 0 - 0.47 x10E9/L 09/04/2021 9:53 AM CDT [facility] Basophils Absolute 0.04 0 - 0.08 x10E9/L 09/04/2021 9:53 AM CDT [facility] Immature Granulocytes Absolute 0.02 0.00 - 0.06 x10E9/L 09/04/2021 9:53 AM CDT [facility] nRBC Auto 0 /100 WBC 09/04/2021 9:53 AM CDT [facility] Blood BLOOD SPECIMEN / Unknown Venipuncture / Unknown 09/04/2021 3:10 AM CDT 09/04/2021 9:40 AM CDT us Vinicio Quintanilla MD LAB - HEMATOLOGY ORDERABLES Giselle adams Result Performing Organization Address City/State/[facility] Co de Phone Number [facility] [address] [place] [address] documented in this encounter Visit Diagnoses Not on filedocumented in this encounter Care Teams Roughing Mill Operator Relationship Specialty Start Date End Date Pepe Martel MD [address] [place] [address] 3 [place] [address] PCP - General 08/14/16 documented as of this encounter
--- OUTSIDE RECORDS SUMMARY | 2024-12-28 17:50 | XMS_ITS | Encounter Summary ---
Author Organization [facility] Address [address] [place] [address] Care Team Providers Care Elastic Attacher Overlock Name Role Phone Pepe Martel MD Primary Care Provider [phone] Encounter Details Date Type Department Care Team (Late st Contact Info) Description 12/25/2021 Lab Requisition [facility] [address] [place] [address] Alverto Virgen MD [address] [place] [address] [place] [address] Social History Tobacco Use Types Packs/Day Years [...] - 105 mg/dL 12/25/2021 11:02 AM CDT [facility] Sodium 141 136 - 145 mmol/L 12/25/2021 11:02 AM CDT [facility] Potassium 4.5 3.5 - 5.1 mmol/L 12/25/2021 11:02 AM CDT [facility] Chloride 104 98 - 107 mmol/L 12/25/2021 11:02 AM CDT [facility] CO2 23 23 - 31 mmol/L 12/25/2021 11:02 AM CDT [facility] Calcium 10.0 8.4 - 10.4 mg/dL 12/25/2021 11:02 AM CDT [facility] Anion Gap 14 8 - 18 mmol/L 12/25/2021 11:02 AM CDT [facility] BUN 33(H) 8.9 - 20.6 mg/dL 12/25/2021 11:02 AM CDT [facility] Creatinine 1.07 0.72 - 1.25 mg/dL 12/25/2021 11:02 AM CDT [facility] Alkaline Phosphatase 132 40 - 150 U/L 12/25/2021 11:02 AM CDT [facility] ALT 16 0 - 61 U/L 12/25/2021 11:02 AM CDT [facility] AST 10 5 - 34 U/L 12/25/2021 11:02 AM CDT [facility] Protein Total 7.7 6.4 - 8.3 gm/dL 12/25/2021 11:02 AM CDT [facility] Albumin 3.8 3.5 - 5.2 gm/dL 12/25/2021 11:02 AM CDT [facility] Bilirubin Total 0.3 0.2 - 1.2 mg/dL 12/25/2021 11:02 AM CDT [facility] eGFR by CKD-EPI >90 >=90 mL/min/1.7 3 m2 12/25/2021 11:02 AM CDT [facility] Blood BLOOD SPECIMEN / Unknown Venipuncture / Unknown 12/25/2021 5:09 AM CDT 12/25/2021 9:50 AM CDT us Alverto Virgen MD LAB - CHEMISTRY ORDERABLE S Final Result Performing Organization Address City/State/[facility] Co de Phone Number [facility] [address] [place] [address] documented in this encounter Visit Diagnoses Not on filedocumented in this encounter Care Teams Elastic Attacher Overlock Relationship Specialty Start Date End Date Pepe Martel MD [address] [place] [address] 3 [place] [address] PCP - General 08/14/16 documented as of this encounter
--- OUTSIDE RECORDS SUMMARY | 2024-12-28 17:50 | XMS_ITS | Encounter Summary ---
Author Organization [facility] Address [address] [place] [address] Care Team Providers Care Production Team Advisor Name Role Phone Pepe Martel MD Primary Care Provider [phone] Encounter Details Date Type Department Care Team (Late st Contact Info) Description 10/02/2021 Lab Requisition [facility] [address] [place] [address] [place] [address] [place] [address] Social History Tobacco Use Types Packs/Day Years [...] CBC WITH DIFFERENTIAL (10/02/2021 3:00 AM CDT) [facility] Signature WBC 6.7 4.4 - 10.7 x10E9/L 10/02/2021 10:01 AM CDT [facility] WBC Corrected 10/02/2021 10:01 AM CDT [facility] RBC 4.49 3.80 - 5.40 x10E12/L 10/02/2021 10:01 AM CDT [facility] Hemoglobin 12.2 12.0 - 17.6 gm/dL 10/02/2021 10:01 AM CDT [facility] Hematocrit 40.1 35.2 - 51.7 % 10/02/2021 10:01 AM CDT [facility] MCV 89.3 80.7 - 98.3 fl 10/02/2021 10:01 AM CDT [facility] MCH 27.2 26.7 - 34.0 pg 10/02/2021 10:01 AM CDT [facility] MCHC 30.4(L) 30.8 - 35.9 gm/dL 10/02/2021 10:01 AM [facility] Platelet Count 442(H) 153 - 416 x10E9/L 10/02/2021 10:01 AM [facility] RDW-CV 14.1 12.1 - 14.9 % 10/02/2021 10:01 AM [facility] MPV 10.8 9.4 - 12.9 fl 10/02/2021 10:01 AM [facility] Neutrophils % 60.1 44.0 - 73.0 % 10/02/2021 10:01 AM [facility] Lymphocytes % 26.9 20.0 - 43.0 % 10/02/2021 10:01 AM [facility] Monocytes % 9.3 5.0 - 13.0 % 10/02/2021 10:01 AM [facility] Eosinophils % 3.0 0.0 - 6.0 % 10/02/2021 10:01 AM [facility] Basophils % 0.5 0.0 - 2.0 % 10/02/2021 10:01 AM [facility] Immature Granulocytes 0.2 0 - 1 % 10/02/2021 10:01 AM [facility] Neutrophil Absolute 4.01 2.01 - 7.14 x10E9/L 10/02/2021 10:01 AM [facility] Lymphocytes Absolute 1.79 1.07 - 3.94 x10E9/L 10/02/2021 10:01 AM [facility] Monocytes Absolute 0.62 0.26 - 1.07 x10E9/L 10/02/2021 10:01 AM [facility] Eosinophils Absolute 0.20 0 - 0.47 x10E9/L 10/02/2021 10:01 AM [facility] Basophils Absolute 0.03 0 - 0.08 x10E9/L 10/02/2021 10:01 AM [facility] Immature Granulocytes Absolute 0.01 0.00 - 0.06 x10E9/L 10/02/2021 10:01 AM [facility] nRBC Auto 0 /100 WBC 10/02/2021 10:01 AM [facility] Blood BLOOD SPECIMEN / Unknown Venipuncture / Unknown 10/02/2021 3:00 AM CDT 10/02/2021 9:39 AM CDT us Vinicio Quintanilla MD LAB - HEMATOLOGY ORDERABLES Giselle adams Result [facility] [address] [place] [address] * (ABNORMAL) COMPREHENSIVE METABOLIC PANEL (10/02/2021 3:00 AM CDT) [facility] Glucose 99 70 - 105 mg/dL 10/02/2021 10:26 AM CDT [facility] Sodium 145 136 - 145 mmol/L 10/02/2021 10:26 AM CDT [facility] Potassium 4.9 3.5 - 5.1 mmol/L 10/02/2021 10:26 AM CDT [facility] Chloride 105 98 - 107 mmol/L 10/02/2021 10:26 AM CDT [facility] CO2 26 23 - 31 mmol/L 10/02/2021 10:26 AM CDT [facility] Calcium 10.6(H) 8.4 - 10.4 mg/dL 10/02/2021 10:26 AM CDT [facility] Anion Gap 14 8 - 18 mmol/L 10/02/2021 10:26 AM CDT [facility] BUN 32(H) 8.9 - 20.6 mg/dL 10/02/2021 10:26 AM CDT [facility] Creatinine 1.07 0.72 - 1.25 mg/dL 10/02/2021 10:26 AM CDT [facility] Alkaline Phosphatase 165(H) 40 - 150 U/L 10/02/2021 10:26 AM CDT [facility] ALT 27 0 - 61 U/L 10/02/2021 10:26 AM CDT [facility] AST 18 5 - 34 U/L 10/02/2021 10:26 AM CDT [facility] Protein Total 8.2 6.4 - 8.3 gm/dL 10/02/2021 10:26 AM CDT [facility] Albumin 3.8 3.5 - 5.2 gm/dL 10/02/2021 10:26 AM CDT [facility] Bilirubin Total 0.4 0.2 - 1.2 mg/dL 10/02/2021 10:26 AM CDT [facility] eGFR by CKD-EPI >90 >=90 mL/min/1.7 3 m2 10/02/2021 10:26 AM CDT [facility] Blood BLOOD SPECIMEN / Unknown Venipuncture / Unknown 10/02/2021 3:00 AM CDT 10/02/2021 9:39 AM CDT us Vinicio Quintanilla MD LAB - CHEMISTRY ORDERABLES Final Result [facility] [address] [place] [address] documented in this encounter Visit Diagnoses Not on filedocumented in this encounter Care Teams Production Team Advisor Relationship Specialty Start Date End Date Pepe Martel MD [address] [place] [address] 3 [place] [address] PCP - General 08/14/16 documented as of this encounter
--- OUTSIDE RECORDS SUMMARY | 2024-12-28 17:50 | XMS_ITS | Encounter Summary ---
Author Organization [facility] Address [address] [place] [address] Care Team Providers Care Spaghetti Press Helper Name Role Phone Pepe Martel MD Primary Care Provider [phone] Encounter Details Date Type Department Care Team (Late st Contact Info) Description 10/16/2021 Lab Requisition [facility] [address] [place] [address] [place] [address] [place] [address] Social History Tobacco Use Types Packs/Day Years [...] CBC WITH DIFFERENTIAL (10/16/2021 3:05 AM CDT) [facility] WBC 6.9 4.4 - 10.7 x10E9/L 10/16/2021 [...] 30.8 - 35.9 gm/dL 10/16/2021 10:45 AM [facility] Platelet Count 347 153 - 416 x10E9/L 10/16/2021 10:45 AM [facility] RDW-CV 14.1 12.1 - 14.9 % 10/16/2021 10:45 AM [facility] MPV 10.6 9.4 - 12.9 fl 10/16/2021 10:45 AM [facility] Neutrophils % 58.0 44.0 - 73.0 % 10/16/2021 10:45 AM [facility] Lymphocytes % 28.6 20.0 - 43.0 % 10/16/2021 10:45 AM [facility] Monocytes % 9.2 5.0 - 13.0 % 10/16/2021 10:45 AM [facility] Eosinophils % 3.8 0.0 - 6.0 % 10/16/2021 10:45 AM [facility] Basophils % 0.3 0.0 - 2.0 % 10/16/2021 10:45 AM [facility] Immature Granulocytes 0.1 0 - 1 % 10/16/2021 10:45 AM [facility] Neutrophil Absolute 4.02 2.01 - 7.14 x10E9/L 10/16/2021 10:45 AM [facility] Lymphocytes Absolute 1.98 1.07 - 3.94 x10E9/L 10/16/2021 10:45 AM [facility] Monocytes Absolute 0.64 0.26 - 1.07 x10E9/L 10/16/2021 10:45 AM [facility] Eosinophils Absolute 0.26 0 - 0.47 x10E9/L 10/16/2021 10:45 AM [facility] Basophils Absolute 0.02 0 - 0.08 x10E9/L 10/16/2021 10:45 AM [facility] Immature Granulocytes Absolute 0.01 0.00 - 0.06 x10E9/L 10/16/2021 10:45 AM [facility] nRBC Auto 0 /100 WBC 10/16/2021 10:45 AM [facility] Blood BLOOD SPECIMEN / Unknown Venipuncture / Unknown 10/16/2021 3:05 AM CDT 10/16/2021 10:12 AM CDT us Vinicio Quintanilla MD LAB - HEMATOLOGY ORDERABLES Giselle adams Result [facility] [address] [place] [address] * (ABNORMAL) COMPREHENSIVE METABOLIC PANEL (10/16/2021 3:05 AM CDT) Glucose 123(H) 70 - 105 mg/dL 10/16/2021 11:02 AM CDT [facility] Sodium 144 136 - 145 mmol/L 10/16/2021 11:[facility] Potassium 4.4 3.5 - 5.1 mmol/L 10/16/2021 11:02 AM [facility] Chloride 105 98 - 107 mmol/L 10/16/2021 11:02 AM [facility] CO2 27 23 - 31 mmol/L 10/16/2021 11:02 AM CDT [facility] Calcium 10.1 8.4 - 10.4 mg/dL 10/16/2021 11:02 AM [facility] Anion Gap 12 8 - 18 mmol/L 10/16/2021 11:02 AM [facility] BUN 32(H) 8.9 - 20.6 mg/dL 10/16/2021 11:02 AM [facility] Creatinine 0.98 0.72 - 1.25 mg/dL 10/16/2021 11:02 AM [facility] Alkaline Phosphatase 134 40 - 150 U/L 10/16/2021 11:02 AM CDT [facility] ALT 17 0 - 61 U/L 10/16/2021 11:02 AM [facility] AST 13 5 - 34 U/L 10/16/2021 11:02 AM [facility] Protein Total 7.2 6.4 - 8.3 gm/dL 10/16/2021 11:02 AM [facility] Albumin 3.5 3.5 - 5.2 gm/dL 10/16/2021 11:02 AM [facility] Bilirubin Total 0.1(L) 0.2 - 1.2 mg/dL 10/16/2021 11:02 AM CDT [facility] eGFR by CKD-EPI >90 >=90 mL/min/1.7 3 m2 10/16/2021 11:02 AM CDT [facility] Blood BLOOD SPECIMEN / Unknown Venipuncture / Unknown 10/16/2021 3:05 AM CDT 10/16/2021 10:12 AM CDT us Vinicio Quintanilla MD LAB - CHEMISTRY ORDERABLES Final Result [facility] [address] [place] [address] documented in this encounter Visit Diagnoses Not on filedocumented in this encounter Care Teams [employer] Relationship Specialty Start Date End Date Pepe Martel MD [address] [place] [address] [address] [place] [address] PCP - General 08/14/16 documented as of this encounter
--- OUTSIDE RECORDS SUMMARY | 2024-12-28 17:50 | XMS_ITS | Encounter Summary ---
Author Organization [facility] Address [address] [place] [address] Care Team Providers Care Batch Heat Treat Operator Name Role Phone Pepe Martel MD Primary Care Provider [phone] Encounter Details Date Type Department Care Team (Late st Contact Info) Description 12/11/2021 Lab Requisition [facility] [address] [place] [address] Alverto Virgen MD [address] [place] [address] [place] [address] Social History Tobacco Use Types Packs/Day Years [...] - 105 mg/dL 12/11/2021 11:42 AM CDT [facility] Sodium 141 136 - 145 mmol/L 12/11/2021 11:42 AM CDT [facility] Potassium 5.7(H) 3.5 - 5.1 mmol/L 12/11/2021 11:42 AM CDT [facility] Chloride 102 98 - 107 mmol/L 12/11/2021 11:42 AM CDT [facility] CO2 22(L) 23 - 31 mmol/L 12/11/2021 11:42 AM CDT [facility] Calcium 10.5(H) 8.4 - 10.4 mg/dL 12/11/2021 11:42 AM CDT [facility] Anion Gap 17 8 - 18 mmol/L 12/11/2021 11:42 AM CDT [facility] BUN 30(H) 8.9 - 20.6 mg/dL 12/11/2021 11:42 AM CDT [facility] Creatinine 1.10 0.72 - 1.25 mg/dL [...] - 1.2 mg/dL 12/11/2021 11:42 AM CDT [facility] eGFR by CKD-EPI 90 >=90 mL/min/1.7 3 m2 12/11/2021 11:42 AM CDT [facility] Blood BLOOD SPECIMEN / Unknown Venipuncture / Unknown 12/11/2021 4:46 AM CDT 12/11/2021 10:44 AM CDT us Alverto Virgen MD LAB - CHEMISTRY ORDERABLE S Final Result Performing Organization Address City/State/[facility] Co de Phone Number [facility] [address] [place], [place] [phone] documented in this encounter Visit Diagnoses Not on filedocumented in this encounter Care Teams Batch Heat Treat Operator Relationship Specialty Start Date End Date Pepe Martel MD [address] [place] [id number] PCP - General 08/14/16 documented as of this encounter
--- OUTSIDE RECORDS SUMMARY | 2024-12-28 17:50 | XMS_ITS | Encounter Summary ---
Author Organization [facility] Address [address] [facility] [place] [address] Care Team Providers Care Maintenance Superintendent Name Role Phone Pepe Martel MD Primary Care Provider [phone] Encounter Details Date Type Department Care Team (Late st Contact Info) Description 12/04/2021 Lab Requisition [facility] [address] [place] [address] Alverto Virgen MD [address] [place] [address] [place] [address] Social History Tobacco Use Types Packs/Day Years [...] CBC WITH DIFFERENTIAL (12/04/2021 3:05 AM CDT) [facility] WBC 8.6 4.4 - 10.7 x10E9/L 12/04/2021 [...] 30.8 - 35.9 gm/dL 12/04/2021 11:53 AM [facility] Platelet Count 413 153 - 416 x10E9/L 12/04/2021 11:53 AM [facility] RDW-CV 13.4 12.1 - 14.9 % 12/04/2021 11:53 AM [facility] MPV 10.2 9.4 - 12.9 fl 12/04/2021 11:53 AM [facility] Neutrophils % 60.7 44.0 - 73.0 % 12/04/2021 11:53 AM [facility] Lymphocytes % 25.8 20.0 - 43.0 % 12/04/2021 11:53 AM [facility] Monocytes % 10.4 5.0 - 13.0 % 12/04/2021 11:53 AM [facility] Eosinophils % 2.7 0.0 - 6.0 % 12/04/2021 11:53 AM [facility] Basophils % 0.2 0.0 - 2.0 % 12/04/2021 11:53 AM [facility] Immature Granulocytes 0.2 0 - 1 % 12/04/2021 11:53 AM [facility] Neutrophil Absolute 5.18 2.01 - 7.14 x10E9/L 12/04/2021 11:53 AM [facility] Lymphocytes Absolute 2.21 1.07 - 3.94 x10E9/L 12/04/2021 11:53 AM [facility] Monocytes Absolute 0.89 0.26 - 1.07 x10E9/L 12/04/2021 11:53 AM [facility] Eosinophils Absolute 0.23 0 - 0.47 x10E9/L 12/04/2021 11:53 AM [facility] Basophils Absolute 0.02 0 - 0.08 x10E9/L 12/04/2021 11:53 AM [facility] Immature Granulocytes Absolute 0.02 0.00 - 0.06 x10E9/L 12/04/2021 11:53 AM [facility] nRBC Auto 0 /100 WBC 12/04/2021 11:53 AM [facility] Blood BLOOD SPECIMEN / Unknown Venipuncture / Unknown 12/04/2021 3:05 AM CDT 12/04/2021 10:59 AM CDT us Alverto Virgen MD LAB - HEMATOLOGY ORDERABL ES Final Result [facility] [address] [place] [address] * (ABNORMAL) COMPREHENSIVE METABOLIC PANEL (12/04/2021 3:05 AM CDT) [facility] Glucose 100 70 - 105 mg/dL 12/04/2021 11:48 AM CDT [facility] Sodium 141 136 - 145 mmol/L 12/04/2021 11:48 AM CDT [facility] Potassium 4.8 3.5 - 5.1 mmol/L 12/04/2021 11:48 AM CDT [facility] Chloride 102 98 - 107 mmol/L 12/04/2021 11:48 AM CDT [facility] CO2 24 23 - 31 mmol/L 12/04/2021 11:48 AM CDT [facility] Calcium 10.3 8.4 - 10.4 mg/dL 12/04/2021 11:48 AM CDT [facility] Anion Gap 15 8 - 18 mmol/L 12/04/2021 11:48 AM CDT [facility] BUN 31(H) 8.9 - 20.6 mg/dL 12/04/2021 11:48 AM CDT [facility] Creatinine 1.11 0.72 - 1.25 mg/dL 12/04/2021 11:48 AM CDT [facility] Alkaline Phosphatase 126 40 - 150 U/L 12/04/2021 11:48 AM CDT [facility] ALT 18 0 - 61 U/L 12/04/2021 11:48 AM CDT [facility] AST 13 5 - 34 U/L 12/04/2021 11:48 AM CDT [facility] Protein Total 7.7 6.4 - 8.3 gm/dL 12/04/2021 11:48 AM CDT [facility] Albumin 3.7 3.5 - 5.2 gm/dL 12/04/2021 11:48 AM CDT [facility] Bilirubin Total 0.3 0.2 - 1.2 mg/dL 12/04/2021 11:48 AM CDT [facility] eGFR by CKD-EPI 89(L) >=90 mL/min/1.7 3 m2 12/04/2021 11:48 AM CDT [facility] Blood BLOOD SPECIMEN / Unknown Venipuncture / Unknown 12/04/2021 3:05 AM CDT 12/04/2021 10:59 AM CDT us Alverto Virgen MD LAB - CHEMISTRY ORDERABLE S Final Result [facility] [address] [place], [place] [phone] documented in this encounter Visit Diagnoses Not on filedocumented in this encounter Care Teams Maintenance Superintendent Relationship Specialty Start Date End Date Pepe Martel MD [address] [place] [address] [address] [place] [address] PCP - General 08/14/16 documented as of this encounter
--- OUTSIDE RECORDS SUMMARY | 2024-12-28 17:50 | XMS_ITS | Encounter Summary ---
Author Organization [facility] Address [address] [facility] [place] [address] Care Team Providers Care Electronic Prepress Operator Name Role Phone Pepe Martel MD Primary Care Provider Encounter Details Date Type Department Care Team (Late st Contact Info) Description 12/18/2021 Lab Requisition [facility] [address] [place] [address] Alverto Virgen MD [address] [place] [address] [place] [address] Social History Tobacco Use Types Packs/Day Years [...] - 105 mg/dL 12/18/2021 9:33 AM CDT [facility] Sodium 137 136 - 145 mmol/L 12/18/2021 9:33 AM CDT [facility] Potassium 5.5(H) 3.5 - 5.1 mmol/L 12/18/2021 9:33 AM CDT [facility] Chloride 101 98 - 107 mmol/L 12/18/2021 9:33 AM CDT [facility] CO2 22(L) 23 - 31 mmol/L 12/18/2021 9:33 AM CDT [facility] Calcium 10.0 8.4 - 10.4 mg/dL 12/18/2021 9:33 AM CDT [facility] Anion Gap 14 8 - 18 mmol/L 12/18/2021 9:33 AM CDT [facility] BUN 29(H) 8.9 - 20.6 mg/dL 12/18/2021 9:33 AM CDT [facility] Creatinine 1.02 0.72 - 1.25 mg/dL 12/18/2021 9:33 AM CDT [facility] Alkaline Phosphatase 129 40 - 150 U/L 12/18/2021 9:33 AM CDT [facility] ALT 17 0 - 61 U/L 12/18/2021 9:33 AM CDT [facility] AST 19 5 - 34 U/L 12/18/2021 9:33 AM CDT [facility] Protein Total 7.9 6.4 - 8.3 gm/dL 12/18/2021 9:33 AM CDT [facility] Albumin 3.6 3.5 - 5.2 gm/dL 12/18/2021 9:33 AM CDT [facility] Bilirubin Total 0.1(L) 0.2 - 1.2 mg/dL 12/18/2021 9:33 AM CDT [facility] eGFR by CKD-EPI >90 >=90 mL/min/1.7 3 m2 12/18/2021 9:33 AM CDT [facility] Blood BLOOD SPECIMEN / Unknown Venipuncture / Unknown 12/18/2021 3:58 AM CDT 12/18/2021 8:56 AM CDT us Alverto Virgen MD LAB - CHEMISTRY ORDERABLE S Final Result Performing Organization Address City/State/[facility] Co de Phone Number [facility] [address] [place], [place] [phone] documented in this encounter Visit Diagnoses Not on filedocumented in this encounter Care Teams Electronic Prepress Operator Relationship Specialty Start Date End Date Pepe Martel MD [address] [place] [address] PCP - General 08/14/16 documented as of this encounter
--- OUTSIDE RECORDS SUMMARY | 2024-12-28 17:50 | XMS_ITS | Encounter Summary ---
Author Organization [facility] Address [address] [facility] [place] [address] Care Team Providers Care Dental Office Assistant Name Role Phone Pepe Martel MD Primary Care Provider [phone] Encounter Details Date Type Department Care Team (Late st Contact Info) Description 01/01/2022 Lab Requisition [facility] [address] [place] [address] Alverto Virgen MD [address] [place] [address] [place] [address] Social History Tobacco Use Types Packs/Day Years [...] - 105 mg/dL 01/01/2022 8:57 AM CDT [facility] Sodium 140 136 - 145 mmol/L 01/01/2022 8:57 AM CDT [facility] Potassium 4.8 3.5 - 5.1 mmol/L 01/01/2022 8:57 AM CDT [facility] Chloride 103 98 - 107 mmol/L 01/01/2022 8:57 AM CDT [facility] CO2 25 23 - 31 mmol/L 01/01/2022 8:57 AM CDT [facility] Calcium 10.4 8.4 - 10.4 mg/dL 01/01/2022 8:57 AM CDT [facility] Anion Gap 12 8 - 18 mmol/L 01/01/2022 8:57 AM CDT [facility] BUN 30(H) 8.9 - 20.6 mg/dL 01/01/2022 8:57 AM CDT [facility] Creatinine 1.03 0.72 - 1.25 mg/dL 01/01/2022 8:57 AM CDT [facility] Alkaline Phosphatase 152(H) 40 - 150 U/L 01/01/2022 8:57 AM CDT [facility] ALT 20 0 - 61 U/L 01/01/2022 8:57 AM CDT [facility] AST 13 5 - 34 U/L 01/01/2022 8:57 AM CDT [facility] Protein Total 8.1 6.4 - 8.3 gm/dL 01/01/2022 8:57 AM CDT [facility] Albumin 3.9 3.5 - 5.2 gm/dL 01/01/2022 8:57 AM CDT [facility] Bilirubin Total 0.3 0.2 - 1.2 mg/dL 01/01/2022 8:57 AM CDT [facility] eGFR by CKD-EPI >90 >=90 mL/min/1.7 3 m2 01/01/2022 8:57 AM CDT [facility] Blood BLOOD SPECIMEN / Unknown Venipuncture / Unknown 01/01/2022 4:23 AM CDT 01/01/2022 8:15 AM CDT us Alverto Virgen MD LAB - CHEMISTRY ORDERABLE S Final Result Performing Organization Address City/State/[facility] Co de Phone Number [facility] [address] [place] [address] documented in this encounter Visit Diagnoses Not on filedocumented in this encounter Care Teams Dental Office Assistant Relationship Specialty Start Date End Date Pepe Martel MD [address] [place] [id number] PCP - General 08/14/16 documented as of this encounter
--- OUTSIDE RECORDS SUMMARY | 2024-12-28 17:50 | XMS_ITS | Encounter Summary ---
Author Organization [facility] Address [address] [facility] [place] [address] Care Team Providers Care Financial Accounting Analyst Name Role Phone Pepe Martel MD Primary Care Provider [phone] Encounter Details Date Type Department Care Team (Late st Contact Info) Description 08/18/2021 Lab Requisition [facility] [address] [place] [address] [place] [address] [place] [address] Social History Tobacco Use Types Packs/Day Years [...] SLIDE SCAN HEMATOLOGY (08/18/2021 2:35 AM CDT) Platelet Estimation Adequate platelets Normal, Adequate platelets 08/18/2021 10:16 AM CDT [facility] Clumped Platelets Occasional(A ) None 08/18/2021 10:16 AM CDT [facility] Blood BLOOD SPECIMEN / Unknown Venipuncture / Unknown 08/18/2021 2:35 AM CDT 08/18/2021 8:49 AM CDT us Vinicio Quintanilla MD LAB - HEMATOLOGY ORDERABLES Giselle adams Result [facility] [address] [place] [address] * (ABNORMAL) COMPREHENSIVE METABOLIC PANEL (08/18/2021 2:35 AM CDT) [facility] Glucose 131(H) 70 - 105 mg/dL 08/18/2021 9:47 AM CDT [facility] Sodium 139 136 - 145 mmol/L 08/18/2021 9:47 AM CDT [facility] Potassium 4.7 3.5 - 5.1 mmol/L 08/18/2021 9:47 AM CDT [facility] Chloride 101 98 - 107 mmol/L 08/18/2021 9:47 AM CDT [facility] CO2 24 23 - 31 mmol/L 08/18/2021 9:47 AM CDT [facility] Calcium 9.9 8.4 - 10.4 mg/dL 08/18/2021 9:47 AM CDT [facility] Anion Gap 14 8 - 18 mmol/L 08/18/2021 9:47 AM CDT [facility] BUN 24(H) 8.9 - 20.6 mg/dL 08/18/2021 9:47 AM CDT [facility] Creatinine 0.78 0.72 - 1.25 mg/dL 08/18/2021 9:47 AM CDT [facility] Alkaline Phosphatase 134 40 - 150 U/L 08/18/2021 9:47 AM CDT [facility] ALT 20 0 - 61 U/L 08/18/2021 9:47 AM CDT [facility] AST 14 5 - 34 U/L 08/18/2021 9:47 AM CDT [facility] Protein Total 7.4 6.4 - 8.3 gm/dL 08/18/2021 9:47 AM CDT [facility] Albumin 3.5 3.5 - 5.2 gm/dL 08/18/2021 9:47 AM CDT [facility] Bilirubin Total 0.2 0.2 - 1.2 mg/dL 08/18/2021 9:47 AM CDT [facility] eGFR by CKD-EPI >90 >=90 mL/min/1.7 3 m2 08/18/2021 9:47 AM CDT [facility] Blood BLOOD SPECIMEN / Unknown Venipuncture / Unknown 08/18/2021 2:35 AM CDT 08/18/2021 8:49 AM CDT Narrative [facility] - 08/18/2021 9:47 AM CDT eGFR result was calculated using the updated CKD-EPI Creatinine Equations (2020). Prior to go live 2021 the eGFR was calculated using the MDRD calculation. Please note Reference Range change. us Vinicio Quintanilla MD LAB - CHEMISTRY ORDERABLES Final Result [facility] [address] [place], [place] [id number] * (ABNORMAL) CBC WITH DIFFERENTIAL (08/18/2021 2:35 AM CDT) [facility] WBC 7.2 4.4 - 10.7 x10E9/L 08/18/2021 9:34 AM CDT [facility] WBC Corrected 08/18/2021 9:34 AM CDT [facility] RBC 3.95 3.80 - 5.40 x10E12/L 08/18/2021 9:34 AM CDT [facility] Hemoglobin 10.5(L) 12.0 - 17.6 gm/dL 08/18/2021 9:34 AM CDT [facility] Hematocrit 33.9(L) 35.2 - 51.7 % 08/18/2021 9:34 AM CDT [facility] MCV 85.8 80.7 - 98.3 fl 08/18/2021 9:34 AM CDT [facility] MCH 26.6(L) 26.7 - 34.0 pg 08/18/2021 9:34 AM CDT [facility] MCHC 31.0 30.8 - 35.9 gm/dL 08/18/2021 9:34 AM CDT [facility] Platelet Count 367 153 - 416 x10E9/L 08/18/2021 9:34 AM CDT [facility] RDW-CV 14.9 12.1 - 14.9 % 08/18/2021 9:34 AM CDT [facility] MPV 10.5 9.4 - 12.9 fl 08/18/2021 9:34 AM CDT [facility] Neutrophils % 65.2 44.0 - 73.0 % 08/18/2021 9:34 AM CDT [facility] Lymphocytes % 22.3 20.0 - 43.0 % 08/18/2021 9:34 AM CDT [facility] Monocytes % 8.5 5.0 - 13.0 % 08/18/2021 9:34 AM CDT [facility] Eosinophils % 3.3 0.0 - 6.0 % 08/18/2021 9:34 AM CDT [facility] Basophils % 0.4 0.0 - 2.0 % 08/18/2021 9:34 AM CDT [facility] Immature Granulocytes 0.3 0 - 1 % 08/18/2021 9:34 AM CDT [facility] Neutrophil Absolute 4.70 2.01 - 7.14 x10E9/L 08/18/2021 9:34 AM CDT [facility] Lymphocytes Absolute 1.61 1.07 - 3.94 x10E9/L 08/18/2021 9:34 AM CDT [facility] Monocytes Absolute 0.61 0.26 - 1.07 x10E9/L 08/18/2021 9:34 AM CDT [facility] Eosinophils Absolute 0.24 0 - 0.47 x10E9/L 08/18/2021 9:34 AM CDT [facility] Basophils Absolute 0.03 0 - 0.08 x10E9/L 08/18/2021 9:34 AM CDT [facility] Immature Granulocytes Absolute 0.02 0.00 - 0.06 x10E9/L 08/18/2021 9:34 AM CDT [facility] nRBC Auto 0 /100 WBC 08/18/2021 9:34 AM CDT [facility] Blood BLOOD SPECIMEN / Unknown Venipuncture / Unknown 08/18/2021 2:35 AM CDT 08/18/2021 8:49 AM CDT us Vinicio Quintanilla MD LAB - HEMATOLOGY ORDERABLES Giselle l Result [facility] [address] [place] [address] documented in this encounter Visit Diagnoses Not on filedocumented in this encounter Care Teams Financial Accounting Analyst Relationship Specialty Start Date End Date Pepe Martel MD [address] [place] [id number] PCP - General 08/14/16 documented as of this encounter
--- OUTSIDE RECORDS SUMMARY | 2024-12-28 17:50 | XMS_ITS | Encounter Summary ---
Author Organization [facility] Address [address] [facility] [place] [address] Care Team Providers Care Travel Registered Nurse Icu Name Role Phone Pepe Martel MD Primary Care Provider [phone] Encounter Details Date Type Department Care Team (Late st Contact Info) Description 09/22/2021 Lab Requisition [facility] [address] [place] [address] [place] [address] [place] [address] Social History Tobacco Use Types Packs/Day Years [...] 30.8 - 35.9 gm/dL 09/22/2021 8:49 AM [facility] Platelet Count 401 153 - 416 x10E9/L 09/22/2021 8:49 AM [facility] RDW-CV 13.6 12.1 - 14.9 % 09/22/2021 8:49 AM [facility] MPV 10.9 9.4 - 12.9 fl 09/22/2021 8:49 AM [facility] Neutrophils % 60.7 44.0 - 73.0 % 09/22/2021 8:49 AM [facility] Lymphocytes % 26.0 20.0 - 43.0 % 09/22/2021 8:49 AM [facility] Monocytes % 8.7 5.0 - 13.0 % 09/22/2021 8:49 AM [facility] Eosinophils % 3.8 0.0 - 6.0 % 09/22/2021 8:49 AM [facility] Basophils % 0.5 0.0 - 2.0 % 09/22/2021 8:49 AM [facility] Immature Granulocytes 0.3 0 - 1 % 09/22/2021 8:49 AM [facility] Neutrophil Absolute 4.46 2.01 - 7.14 x10E9/L 09/22/2021 8:49 AM [facility] Lymphocytes Absolute 1.91 1.07 - 3.94 x10E9/L 09/22/2021 8:49 AM [facility] Monocytes Absolute 0.64 0.26 - 1.07 x10E9/L 09/22/2021 8:49 AM [facility] Eosinophils Absolute 0.28 0 - 0.47 x10E9/L 09/22/2021 8:49 AM [facility] Basophils Absolute 0.04 0 - 0.08 x10E9/L 09/22/2021 8:49 AM [facility] Immature Granulocytes Absolute 0.02 0.00 - 0.06 x10E9/L 09/22/2021 8:49 AM [facility] nRBC Auto 0 /100 WBC 09/22/2021 8:49 AM [facility] Blood BLOOD SPECIMEN / Unknown Venipuncture / Unknown 09/22/2021 3:40 AM CDT 09/22/2021 8:29 AM CDT us Vinicio Quintanilla MD LAB - HEMATOLOGY ORDERABLES Giselle adams Result [facility] [address] [place] [address] * (ABNORMAL) COMPREHENSIVE METABOLIC PANEL (09/22/2021 3:40 AM CDT) [facility] Glucose 118(H) 70 - 105 mg/dL 09/22/2021 9:06 AM CDT [facility] Sodium 146(H) 136 - 145 mmol/L 09/22/2021 9:06 AM [facility] Potassium 4.6 3.5 - 5.1 mmol/L 09/22/2021 9:06 AM T [facility] Chloride 106 98 - 107 mmol/L 09/22[facility]21 [facility] CO2 27 23 - 31 mmol/L 09/22/2021 9:06 AM CDT [facility] Calcium 10.5(H) 8.4 - 10.4 mg/dL 09/22/2021 9:06 AM [facility] Anion Gap 13 8 - 18 mmol/L 09/22/2021 9:06 AM [facility] BUN 34(H) 8.9 - 20.6 mg/dL 09/22/2021 9:06 AM [facility] Creatinine 1.04 0.72 - 1.25 mg/dL 09/22/2021 9:06 AM [facility] Alkaline Phosphatase 161(H) 40 - 150 U/L 09/22/2021 9:06 AM CDT [facility] ALT 27 0 - 61 U/L 09/22/2021 9:06 AM CDT [facility] AST 13 5 - 34 U/L 09/22/2021 9:06 AM [facility] Protein Total 7.9 6.4 - 8.3 gm/dL 09/22/2021 9:06 AM CDT [facility] Albumin 3.8 3.5 - 5.2 gm/dL 09/22/2021 9:06 AM CDT [facility] Bilirubin Total 0.3 0.2 - 1.2 mg/dL 09/22/2021 9:06 AM CDT [facility] eGFR by CKD-EPI >90 >=90 mL/min/1.7 3 m2 09/22/2021 9:06 AM CDT [facility] Blood BLOOD SPECIMEN / Unknown Venipuncture / Unknown 09/22/2021 3:40 AM CDT 09/22/2021 8:29 AM CDT Narrative [facility] - 09/22/2021 9:06 AM CDT eGFR result was calculated using the updated CKD-EPI Creatinine Equations (2020). Prior to go live 2021 the eGFR was calculated using the MDRD calculation. Please note Reference Range change. us Vinicio Quintanilla MD LAB - CHEMISTRY ORDERABLES Final Result Performing Organization Address City/State/[facility] Co de Phone Number [facility] [address] [place] [address] documented in this encounter Visit Diagnoses Not on filedocumented in this encounter Care Teams Travel Registered Nurse Icu Relationship Specialty Start Date End Date Pepe Martel MD [address] [place] [id number] PCP - General 08/14/16 documented as of this encounter
--- OUTSIDE RECORDS SUMMARY | 2024-12-28 17:50 | XMS_ITS | Encounter Summary ---
Author Organization [facility] Address [address] [place] [address] Care Team Providers Care Veneer Marker Name Role Phone Pepe Martel MD Primary Care Provider [phone] Encounter Details Date Type Department Care Team (Late st Contact Info) Description 09/29/2021 Lab Requisition [facility] [address] [place] [address] [place] [address] [place] [address] Social History Tobacco Use Types Packs/Day Years [...] 30.8 - 35.9 gm/dL 09/29/2021 11:19 AM [facility] Platelet Count 454(H) 153 - 416 x10E9/L 09/29/2021 11:19 AM [facility] RDW-CV 14.0 12.1 - 14.9 % 09/29/2021 11:19 AM [facility] MPV 10.8 9.4 - 12.9 fl 09/29/2021 11:19 AM [facility] Neutrophils % 59.2 44.0 - 73.0 % 09/29/2021 11:19 AM [facility] Lymphocytes % 25.9 20.0 - 43.0 % 09/29/2021 11:19 AM [facility] Monocytes % 10.8 5.0 - 13.0 % 09/29/2021 11:19 AM [facility] Eosinophils % 3.3 0.0 - 6.0 % 09/29/2021 11:19 AM [facility] Basophils % 0.4 0.0 - 2.0 % 09/29/2021 11:19 AM [facility] Immature Granulocytes 0.4 0 - 1 % 09/29/2021 11:19 AM [facility] Neutrophil Absolute 4.84 2.01 - 7.14 x10E9/L 09/29/2021 11:19 AM [facility] Lymphocytes Absolute 2.11 1.07 - 3.94 x10E9/L 09/29/2021 11:19 AM [facility] Monocytes Absolute 0.88 0.26 - 1.07 x10E9/L 09/29/2021 11:19 AM [facility] Eosinophils Absolute 0.27 0 - 0.47 x10E9/L 09/29/2021 11:19 AM [facility] Basophils Absolute 0.03 0 - 0.08 x10E9/L 09/29/2021 11:19 AM [facility] Immature Granulocytes Absolute 0.03 0.00 - 0.06 x10E9/L 09/29/2021 11:19 AM [facility] nRBC Auto 0 /100 WBC 09/29/2021 11:19 AM [facility] Blood BLOOD SPECIMEN / Unknown Venipuncture / Unknown 09/29/2021 3:30 AM CDT 09/29/2021 10:16 AM CDT us Vinicio Quintanilla MD LAB - HEMATOLOGY ORDERABLES Giselle adams Result [facility] [address] [place] [address] * (ABNORMAL) COMPREHENSIVE METABOLIC PANEL (09/29/2021 3:30 AM CDT) [facility] Glucose 104 70 - 105 mg/dL 09/29/2021 11:43 AM CDT [facility] Sodium 142 136 - 145 mmol/L 09/29/2021 11:43 AM CDT [facility] Potassium 4.6 3.5 - 5.1 mmol/L 09/29/2021 11:43 AM CDT [facility] Chloride 104 98 - 107 mmol/L 09/29/2021 11:43 AM CDT [facility] CO2 26 23 - 31 mmol/L 09/29/2021 11:43 AM CDT [facility] Calcium 10.2 8.4 - 10.4 mg/dL 09/29/2021 11:43 AM CDT [facility] Anion Gap 12 8 - 18 mmol/L 09/29/2021 11:43 AM CDT [facility] BUN 32(H) 8.9 - 20.6 mg/dL 09/29/2021 11:43 AM CDT [facility] Creatinine 0.99 0.72 - 1.25 mg/dL 09/29/2021 11:43 AM CDT [facility] Alkaline Phosphatase 151(H) 40 - 150 U/L 09/29/2021 11:43 AM CDT [facility] ALT 28 0 - 61 U/L 09/29/2021 11:43 AM CDT [facility] AST 16 5 - 34 U/L 09/29/2021 11:43 AM CDT [facility] Protein Total 7.5 6.4 - 8.3 gm/dL 09/29/2021 11:43 AM CDT [facility] Albumin 3.7 3.5 - 5.2 gm/dL 09/29/2021 11:43 AM CDT [facility] Bilirubin Total 0.2 0.2 - 1.2 mg/dL 09/29/2021 11:43 AM CDT [facility] eGFR by CKD-EPI >90 >=90 mL/min/1.7 3 m2 09/29/2021 11:43 AM CDT [facility] Blood BLOOD SPECIMEN / Unknown Venipuncture / Unknown 09/29/2021 3:30 AM CDT 09/29/2021 9:44 AM CDT us Vinicio Quintanilla MD LAB - CHEMISTRY ORDERABLES Final Result [facility] [address] [place] [address] documented in this encounter Visit Diagnoses Not on filedocumented in this encounter Care Teams Veneer Marker Relationship Specialty Start Date End Date Pepe Martel MD [address] [place] [address] [address] [place] [address] PCP - General 08/14/16 documented as of this encounter
--- OUTSIDE RECORDS SUMMARY | 2024-12-28 17:50 | XMS_ITS | Encounter Summary ---
Author Organization [facility] Address [address] [facility] [place] [address] Care Team Providers Care Skein Bander Name Role Phone Pepe Martel MD Primary Care Provider [phone] Encounter Details Date Type Department Care Team (Late st Contact Info) Description 04/07/2021 Lab Requisition [facility] [address] [place] [address] Lamberto De La Cruz MD [address] [facility] [address] [place] [address] Social History Tobacco Use Types [...] W AUTO DIFFERENTIAL STAT 04/07/2021 3:00 AM CLIENT DEVELOPMENT MANAGER COMPREHENSIVE METABOLIC PANEL STAT 04/07/2021 3:00 AM CLIENT DEVELOPMENT MANAGER VANCOMYCIN LEVEL TROUGH STAT 04/07/2021 3:00 AM CLIENT DEVELOPMENT MANAGER documented in this encounter Results * VANCOMYCIN LEVEL TROUGH (04/07/2021 3:00 AM CLIENT DEVELOPMENT MANAGER) Pathologist [facility] Vancomycin Trough 11.5 10.0 - 20.0 ug/mL 04/07/2021 9:29 AM CLIENT DEVELOPMENT MANAGER [facility] Blood BLOOD SPECIMEN / Unknown Venipuncture / Unknown 04/07/2021 3:00 AM CLIENT DEVELOPMENT MANAGER 04/07/2021 8:53 AM CLIENT DEVELOPMENT MANAGER us Lamberto De La Cruz MD LAB - CHEMISTRY ORDERABLES Final Result [facility] [address] [place] [address] * (ABNORMAL) CBC WITH DIFFERENTIAL (04/07/2021 3:00 AM CLIENT DEVELOPMENT MANAGER) Pathologist [facility] WBC 6.8 4.4 - 10.7 x10E9/L 04/07/2021 9:20 AM [facility] WBC Corrected 04/07/2021 9:20 AM [facility] RBC 3.30(L) 3.80 - 5.40 x10E12/L 04/07/2021 9:20 AM [facility] Hemoglobin 9.3(L) 12.0 - 17.6 gm/dL 04/07/2021 9:20 AM [facility] Hematocrit 30.2(L) 35.2 - 51.7 % 04/07/2021 9:20 AM [facility] MCV 91.5 80.7 - 98.3 fl 04/07/2021 9:20 AM [facility] MCH 28.2 26.7 - 34.0 pg 04/07/2021 9:20 AM [facility] MCHC 30.8 30.8 - 35.9 gm/dL 04/07/2021 9:20 AM [facility] Platelet Count 399 153 - 416 x10E9/L 04/07/2021 9:20 AM [facility] RDW-CV 15.2(H) 12.1 - 14.9 % 04/07/2021 9:20 AM [facility] MPV 10.0 9.4 - 12.9 fl 04/07/2021 9:20 AM [facility] Neutrophils % 62.6 44.0 - 73.0 % 04/07/2021 9:20 AM [facility] Lymphocytes % 16.3(L) 20.0 - 43.0 % 04/07/2021 9:20 AM [facility] Monocytes % 12.5 5.0 - 13.0 % 04/07/2021 9:20 AM [facility] Eosinophils % 7.9(H) 0.0 - 6.0 % 04/07/2021 9:20 AM [facility] Basophils % 0.6 0.0 - 2.0 % 04/07/2021 9:20 AM [facility] Immature Granulocytes 0.1 0 - 1 % 04/07/2021 9:20 AM [facility] Neutrophil Absolute 4.25 2.01 - 7.14 x10E9/L 04/07/2021 9:20 AM [facility] Lymphocytes Absolute 1.11 1.07 - 3.94 x10E9/L 04/07/2021 9:20 AM [facility] Monocytes Absolute 0.85 0.26 - 1.07 x10E9/L 04/07/2021 9:20 AM [facility] Eosinophils Absolute 0.54(H) 0 - 0.47 x10E9/L 04/07/2021 9:20 AM [facility] Basophils Absolute 0.04 0 - 0.08 x10E9/L 04/07/2021 9:20 AM [facility] Immature Granulocytes Absolute 0.01 0.00 - 0.06 x10E9/L 04/07/2021 9:20 AM [facility] nRBC Auto 0 /100 WBC 04/07/2021 9:20 AM [facility] Blood BLOOD SPECIMEN / Unknown Venipuncture / Unknown 04/07/2021 3:00 AM CLIENT DEVELOPMENT MANAGER 04/07/2021 8:51 AM [facility] us Lamberto De La Cruz MD LAB - HEMATOLOGY ORDERABLES Giselle adams Result [facility] [address] [place] [address] * (ABNORMAL) COMPREHENSIVE METABOLIC PANEL (04/07/2021 3:00 AM [facility]) [facility] Glucose 100 70 - 105 mg/dL 04/07/2021 9:32 AM [facility] Sodium 136 136 - 145 mmol/L 04/07/2021 9:32 AM [facility] Potassium 4.5 3.5 - 5.1 mmol/L 04/07/2021 9:32 AM [facility] Chloride 104 98 - 107 mmol/L 04/07/2021 9:32 AM [facility] CO2 20(L) 23 - 31 mmol/L 04/07/2021 9:32 AM [facility] Calcium 8.8 8.4 - 10.4 mg/dL 04/07/2021 9:32 AM [facility] Anion Gap 12 8 - 18 mmol/L 04/07/2021 9:32 AM [facility] BUN 23(H) 8.9 - 20.6 mg/dL 04/07/2021 9:32 AM [facility] Creatinine 0.76 0.72 - 1.25 mg/dL 04/07/2021 9:32 AM CLIENT DEVELOPMENT MANAGER [facility] Alkaline Phosphatase 95 40 - 150 U/L 04/07/2021 9:32 AM CLIENT DEVELOPMENT MANAGER [facility] ALT 18 0 - 61 U/L 04/07/2021 9:32 AM CLIENT DEVELOPMENT MANAGER [facility] AST 22 5 - 34 U/L 04/07/2021 9:32 AM CLIENT DEVELOPMENT MANAGER [facility] Protein Total 7.0 6.4 - 8.3 gm/dL 04/07/2021 9:32 AM CLIENT DEVELOPMENT MANAGER [facility] Albumin 3.1(L) 3.5 - 5.2 gm/dL 04/07/2021 9:32 AM CLIENT DEVELOPMENT MANAGER [facility] Bilirubin Total 0.2 0.2 - 1.2 mg/dL 04/07/2021 9:32 AM CLIENT DEVELOPMENT MANAGER [facility] eGFR by MDRD >60 >60 mL/min/1.7 3m2 04/07/2021 9:32 AM CLIENT DEVELOPMENT MANAGER [facility] eGFR by MDRD >60 >60 mL/min/1.7 3m2 04/07/2021 9:32 AM CLIENT DEVELOPMENT MANAGER [facility] Blood BLOOD SPECIMEN / Unknown Venipuncture / Unknown 04/07/2021 3:00 AM CLIENT DEVELOPMENT MANAGER 04/07/2021 8:51 AM CLIENT DEVELOPMENT MANAGER Lamberto De La Cruz MD LAB - CHEMISTRY ORDERABLES Final Result Performing Organization Address City/State/[facility] Co de Phone Number [facility] [address] [place], [place] [id number] documented in this encounter Visit Diagnoses Not on filedocumented in this encounter Care Teams Skein Bander Relationship Specialty Start Date End Date Pepe Martel MD [address] [facility] [address] [place] [address] PCP - General 08/14/16 documented as of this encounter
--- OUTSIDE RECORDS SUMMARY | 2024-12-28 17:50 | XMS_ITS | Encounter Summary ---
Author Organization [facility] Address [address] [place] [address] Care Team Providers Care Unix Analyst Name Role Phone Pepe Martel MD Primary Care Provider [phone] Encounter Details Date Type Department Care Team (Late st Contact Info) Description 04/14/2021 Lab Requisition [facility] [address] [place] [address] Lamberto De La Cruz MD [address] [facility] [address] [place] [address] Social History Tobacco Use Types [...] of Assessment Author No 02/15/2021 12:45 PM Nelea Toure RN * Does person have difficulty [...] W AUTO DIFFERENTIAL STAT 04/14/2021 5:[address] [facility] COMPREHENSIVE METABOLIC PANEL STAT 04/14/2021 5:[address] [facility] VANCOMYCIN LEVEL TROUGH STAT 04/14/2021 4:[address] [facility] documented in this encounter Results * (ABNORMAL) CBC WITH DIFFERENTIAL (04/14/2021 5:[address] [facility]) [facility] WBC 8.0 4.4 - 10.7 x10E9/L 04/14/2021 10:[address] [facility] WBC Corrected 04/14/2021 10:[address] [facility] RBC 3.81 3.80 - 5.40 x10E12/L 04/14/2021 10:[address] [facility] Hemoglobin 10.5(L) 12.0 - 17.6 gm/dL 04/14/2021 10:[address] [facility] Hematocrit 33.5(L) 35.2 - 51.7 % 04/14/2021 10:[address] [facility] MCV 87.9 80.7 - 98.3 fl 04/14/2021 10:[address] [facility] MCH 27.6 26.7 - 34.0 pg 04/14/2021 10:[address] [facility] MCHC 31.3 30.8 - 35.9 gm/dL 04/14/2021 10:47 AM [facility] Platelet Count 452(H) 153 - 416 x10E9/L 04/14/2021 10:47 AM [facility] RDW-CV 14.6 12.1 - 14.9 % 04/14/2021 10:47 AM [facility] MPV 9.6 9.4 - 12.9 fl 04/14/2021 10:47 AM [facility] Neutrophils % 65.2 44.0 - 73.0 % 04/14/2021 10:47 AM [facility] Lymphocytes % 17.3(L) 20.0 - 43.0 % 04/14/2021 10:47 AM [facility] Monocytes % 12.1 5.0 - 13.0 % 04/14/2021 10:47 AM [facility] Eosinophils % 4.7 0.0 - 6.0 % 04/14/2021 10:47 AM [facility] Basophils % 0.5 0.0 - 2.0 % 04/14/2021 10:47 AM [facility] Immature Granulocytes 0.2 0 - 1 % 04/14/2021 10:47 AM [facility] Neutrophil Absolute 5.22 2.01 - 7.14 x10E9/L 04/14/2021 10:47 AM [facility] Lymphocytes Absolute 1.39 1.07 - 3.94 x10E9/L 04/14/2021 10:47 AM [facility] Monocytes Absolute 0.97 0.26 - 1.07 x10E9/L 04/14/2021 10:47 AM [facility] Eosinophils Absolute 0.38 0 - 0.47 x10E9/L 04/14/2021 10:47 AM [facility] Basophils Absolute 0.04 0 - 0.08 x10E9/L 04/14/2021 10:47 AM [facility] Immature Granulocytes Absolute 0.02 0.00 - 0.06 x10E9/L 04/14/2021 10:47 AM [facility] nRBC Auto 0 /100 WBC 04/14/2021 10:47 AM [facility] Blood BLOOD SPECIMEN / Unknown Venipuncture / Unknown 04/14/2021 5:[address] [facility] 04/14/2021 9:39 AM [facility] us Lamberto De La Cruz MD LAB - HEMATOLOGY ORDERABLES Giselle bryan Result [facility] [address] [place] [address] * (ABNORMAL) COMPREHENSIVE METABOLIC PANEL (04/14/2021 5:[address] [facility]) Pathologist [facility] Glucose 102 70 - 105 mg/dL 04/14/2021 10:51 AM [facility] Sodium 138 136 - 145 mmol/L 04/14/2021 10:51 AM [facility] Potassium 4.9 3.5 - 5.1 mmol/L 04/14/2021 10:51 AM [facility] Chloride 102 98 - 107 mmol/L 04/14/2021 10:51 AM [facility] CO2 24 23 - 31 mmol/L 04/14/2021 10:51 AM [facility] Calcium 9.8 8.4 - 10.4 mg/dL 04/14/2021 10:51 AM [facility] Anion Gap 12 8 - 18 mmol/L 04/14/2021 10:51 AM [facility] BUN 23(H) 8.9 - 20.6 mg/dL 04/14/2021 10:51 AM [facility] Creatinine 0.84 0.72 - 1.25 mg/dL 04/14/2021 10:51 AM [facility] Alkaline Phosphatase 104 40 - 150 U/L 04/14/2021 10:51 AM [facility] ALT 31 0 - 61 U/L 04/14/2021 10:51 AM [facility] AST 24 5 - 34 U/L 04/14/2021 10:51 AM [facility] Protein Total 7.6 6.4 - 8.3 gm/dL 04/14/2021 10:51 AM [facility] Albumin 3.6 3.5 - 5.2 gm/dL 04/14/2021 10:51 AM [facility] Bilirubin Total 0.2 0.2 - 1.2 mg/dL 04/14/2021 10:[address] [facility] eGFR by MDRD >60 >60 mL/min/1.7 3m2 04/14/2021 10:[address] [facility] eGFR by MDRD >60 >60 mL/min/1.7 3m2 04/14/2021 10:[address] [facility] Blood BLOOD SPECIMEN / Unknown Venipuncture / Unknown 04/14/2021 5:[address] [facility] 04/14/2021 9:[address] [facility] Lamberto De La Cruz MD LAB - CHEMISTRY ORDERABLES Final Result [facility] [address] [place], [place] [id number] * VANCOMYCIN LEVEL TROUGH (04/14/2021 4:[address] [facility]) Vancomycin Trough 16.6 10.0 - 20.0 ug/mL 04/14/2021 11:[address] [facility] Blood BLOOD SPECIMEN / Unknown Venipuncture / Unknown 04/14/2021 4:[address] [facility] 04/14/2021 11:[address] [facility] Lamberto De La Cruz MD LAB - CHEMISTRY ORDERABLES Final Result [facility] [address] [place] [address] documented in this encounter Visit Diagnoses Not on filedocumented in this encounter Care Teams Unix Analyst Relationship Specialty Start Date End Date Pepe Martel MD [address] [place] [id number] PCP - General 08/14/16 documented as of this encounter
--- OUTSIDE RECORDS SUMMARY | 2024-12-28 17:50 | XMS_ITS | Encounter Summary ---
Author Organization [facility] Address [address] [place] [address] Care Team Providers Care Coppersmith Helper Name Role Phone Pepe Martel MD Primary Care Provider [phone] Encounter Details Date Type Department Care Team (Late st Contact Info) Description 08/21/2021 Lab Requisition [facility] [address] [place] [address] [place] [address] [place] [address] Social History Tobacco Use Types Packs/Day Years [...] 30.8 - 35.9 gm/dL 08/21/2021 9:10 AM [facility] Platelet Count 408 153 - 416 x10E9/L 08/21/2021 9:10 AM [facility] RDW-CV 15.1(H) 12.1 - 14.9 % 08/21/2021 9:10 AM [facility] MPV 10.4 9.4 - 12.9 fl 08/21/2021 9:10 AM [facility] Neutrophils % 59.1 44.0 - 73.0 % 08/21/2021 9:10 AM [facility] Lymphocytes % 26.2 20.0 - 43.0 % 08/21/2021 9:10 AM [facility] Monocytes % 11.0 5.0 - 13.0 % 08/21/2021 9:10 AM [facility] Eosinophils % 3.1 0.0 - 6.0 % 08/21/2021 9:10 AM [facility] Basophils % 0.4 0.0 - 2.0 % 08/21/2021 9:10 AM [facility] Immature Granulocytes 0.2 0 - 1 % 08/21/2021 9:10 AM [facility] Neutrophil Absolute 5.52 2.01 - 7.14 x10E9/L 08/21/2021 9:10 AM [facility] Lymphocytes Absolute 2.45 1.07 - 3.94 x10E9/L 08/21/2021 9:10 AM [facility] Monocytes Absolute 1.03 0.26 - 1.07 x10E9/L 08/21/2021 9:10 AM [facility] Eosinophils Absolute 0.29 0 - 0.47 x10E9/L 08/21/2021 9:10 AM [facility] Basophils Absolute 0.04 0 - 0.08 x10E9/L 08/21/2021 9:10 AM [facility] Immature Granulocytes Absolute 0.02 0.00 - 0.06 x10E9/L 08/21/2021 9:10 AM [facility] nRBC Auto 0 /100 WBC 08/21/2021 9:10 AM [facility] Blood BLOOD SPECIMEN / Unknown Venipuncture / Unknown 08/21/2021 4:04 AM CDT 08/21/2021 8:57 AM CDT us Vinicio Quintanilla MD LAB - HEMATOLOGY ORDERABLES Giselle adams Result [facility] [address] [place] [address] * (ABNORMAL) COMPREHENSIVE METABOLIC PANEL (08/21/2021 4:04 AM CDT) [facility] Glucose 101 70 - 105 mg/dL 08/21/2021 9:36 AM CDT [facility] Sodium 138 136 - 145 mmol/L 08/21/2021 9:36 AM CDT [facility] Potassium 4.7 3.5 - 5.1 mmol/L 08/21/2021 9:36 AM CDT [facility] Chloride 98 98 - 107 mmol/L 08/21/2021 9:36 AM CDT [facility] CO2 25 23 - 31 mmol/L 08/21/2021 9:36 AM CDT [facility] Calcium 10.4 8.4 - 10.4 mg/dL 08/21/2021 9:36 AM CDT [facility] Anion Gap 15 8 - 18 mmol/L 08/21/2021 9:36 AM CDT [facility] BUN 26(H) 8.9 - 20.6 mg/dL 08/21/2021 9:36 AM CDT [facility] Creatinine 0.88 0.72 - 1.25 mg/dL 08/21/2021 9:36 AM CDT [facility] Alkaline Phosphatase 160(H) 40 - 150 U/L 08/21/2021 9:36 AM CDT [facility] ALT 28 0 - 61 U/L 08/21/2021 9:36 AM CDT [facility] AST 19 5 - 34 U/L 08/21/2021 9:36 AM CDT [facility] Protein Total 8.5(H) 6.4 - 8.3 gm/dL 08/21/2021 9:36 AM CDT [facility] Albumin 4.0 3.5 - 5.2 gm/dL 08/21/2021 9:36 AM CDT [facility] Bilirubin Total 0.2 0.2 - 1.2 mg/dL 08/21/2021 9:36 AM CDT [facility] eGFR by CKD-EPI >90 >=90 mL/min/1.7 3 m2 08/21/2021 9:36 AM CDT [facility] Blood BLOOD SPECIMEN / Unknown Venipuncture / Unknown 08/21/2021 4:04 AM CDT 08/21/2021 8:57 AM CDT Narrative [facility] - 08/21/2021 9:36 AM CDT eGFR result was calculated using the updated CKD-EPI Creatinine Equations (2020). Prior to go live 2021 the eGFR was calculated using the MDRD calculation. Please note Reference Range change. us Vinicio Quintanilla MD LAB - CHEMISTRY ORDERABLES Final Result [facility] [address] [place], [place] [id number] documented in this encounter Visit Diagnoses Not on filedocumented in this encounter Care Teams Coppersmith Helper Relationship Specialty Start Date End Date Pepe Martel MD [address] [place] [id number] PCP - General 08/14/16 documented as of this encounter
--- OUTSIDE RECORDS SUMMARY | 2024-12-28 17:50 | XMS_ITS | Encounter Summary ---
Author Organization [facility] Address [address] [place] [address] Care Team Providers Care Clay Mixer Name Role Phone Pepe Martel MD Primary Care Provider [phone] Encounter Details Date Type Department Care Team (Late st Contact Info) Description 04/02/2021 Lab Requisition [facility] [address] [place] [address] Lamberto De La Cruz MD [address] [facility] [address] [place] [address] Social History Tobacco Use Types [...] Diagnosis Comments PTT STAT 04/02/2021 5:00 AM BALLROOM DANCE INSTRUCTOR PT-INR STAT 04/02/2021 5:00 AM BALLROOM DANCE INSTRUCTOR CBC W AUTO DIFFERENTIAL STAT 04/02/2021 5:00 AM BALLROOM DANCE INSTRUCTOR COMPREHENSIVE METABOLIC PANEL STAT 04/02/2021 5:00 AM BALLROOM DANCE INSTRUCTOR documented in this encounter Results * PTT (04/02/2021 5:00 AM BALLROOM DANCE INSTRUCTOR) PTT 31.5 23.0 - 38.4 sec 04/02/2021 10:20 AM BALLROOM DANCE INSTRUCTOR [facility] Blood BLOOD SPECIMEN / Unknown Venipuncture / Unknown 04/02/2021 5:00 AM BALLROOM DANCE INSTRUCTOR 04/02/2021 9:36 AM BALLROOM DANCE INSTRUCTOR Narrative [facility] - 04/02/2021 10:20 AM BALLROOM DANCE INSTRUCTOR Heparin Therapeutic Range for PTT: 69.0 - 110.0 seconds. us Lamberto De La Cruz MD LAB - COAGULATION ORDERABLES Fin al Result [facility] [address] [place] [address] * PT-INR (04/02/2021 5:00 AM RUST) Pathologist [facility] PT 14.5 12.1 - 14.8 sec 04/02/2021 10:19 AM [facility] INR 1.1 0.9 - 1.1 04/02/2021 10:19 AM [facility] Blood BLOOD SPECIMEN / Unknown Venipuncture / Unknown 04/02/2021 5:00 AM BALLROOM DANCE INSTRUCTOR 04/02/2021 9:36 AM [facility] - 04/02/2021 10:19 AM BALLROOM DANCE INSTRUCTOR Conventional Warfarin Anticoagulant Therapy: INR Reference Range: 2.0-3.0 Intensive Warfarin Anticoagulant Therapy: INR Reference Range: 2.5-3.5 Lamberto De La Cruz MD LAB - COAGULATION ORDERABLES Fin al Result Performing Organization Address City/State/[facility] Co de Phone Number [facility] [address] [place], [place] [id number] * (ABNORMAL) CBC WITH DIFFERENTIAL (04/02/2021 5:00 AM RUST) Pathologist [facility] WBC 7.6 4.4 - 10.7 x10E9/L 04/02/2021 10:14 AM [facility] WBC Corrected 04/02/2021 10:14 AM [facility] RBC 3.24(L) 3.80 - 5.40 x10E12/L 04/02/2021 10:14 AM [facility] Hemoglobin 8.9(L) 12.0 - 17.6 gm/dL 04/02/2021 10:14 AM [facility] Hematocrit 30.2(L) 35.2 - 51.7 % 04/02/2021 10:14 AM [facility] MCV 93.2 80.7 - 98.3 fl 04/02/2021 10:14 AM [facility] MCH 27.5 26.7 - 34.0 pg 04/02/2021 10:14 AM [facility] MCHC 29.5(L) 30.8 - 35.9 gm/dL 04/02/2021 10:14 AM [facility] Platelet Count 369 153 - 416 x10E9/L 04/02/2021 10:14 AM [facility] RDW-CV 15.4(H) 12.1 - 14.9 % 04/02/2021 10:14 AM [facility] MPV 10.1 9.4 - 12.9 fl 04/02/2021 10:14 AM [facility] Neutrophils % 63.6 44.0 - 73.0 % 04/02/2021 10:14 AM [facility] Lymphocytes % 17.9(L) 20.0 - 43.0 % 04/02/2021 10:14 AM [facility] Monocytes % 12.0 5.0 - 13.0 % 04/02/2021 10:14 AM [facility] Eosinophils % 5.7 0.0 - 6.0 % 04/02/2021 10:14 AM [facility] Basophils % 0.7 0.0 - 2.0 % 04/02/2021 10:14 AM [facility] Immature Granulocytes 0.1 0 - 1 % 04/02/2021 10:14 AM [facility] Neutrophil Absolute 4.83 2.01 - 7.14 x10E9/L 04/02/2021 10:14 AM [facility] Lymphocytes Absolute 1.36 1.07 - 3.94 x10E9/L 04/02/2021 10:14 AM [facility] Monocytes Absolute 0.91 0.26 - 1.07 x10E9/L 04/02/2021 10:14 AM [facility] Eosinophils Absolute 0.43 0 - 0.47 x10E9/L 04/02/2021 10:14 AM [facility] Basophils Absolute 0.05 0 - 0.08 x10E9/L 04/02/2021 10:14 AM [facility] Immature Granulocytes Absolute 0.01 0.00 - 0.06 x10E9/L 04/02/2021 10:14 AM [facility] nRBC Auto 0 /100 WBC 04/02/2021 10:14 AM [facility] Blood BLOOD SPECIMEN / Unknown Venipuncture / Unknown 04/02/2021 5:00 AM BALLROOM DANCE INSTRUCTOR 04/02/2021 9:36 AM RUST Lamberto De La Cruz MD LAB - HEMATOLOGY ORDERABLES Giselle bryan Result [facility] [address] [place] [address] * (ABNORMAL) COMPREHENSIVE METABOLIC PANEL (04/02/2021 5:00 AM RUST) Glucose 125(H) 70 - 105 mg/dL 04/02/2021 10:37 AM [facility] Sodium 142 136 - 145 mmol/L 04/02/2021 10:37 AM [facility] Potassium 4.2 3.5 - 5.1 mmol/L 04/02/2021 10:37 AM [facility] Chloride 107 98 - 107 mmol/L 04/02/2021 10:37 AM [facility] CO2 21(L) 23 - 31 mmol/L 04/02/2021 10:37 AM [facility] Calcium 9.1 8.4 - 10.4 mg/dL 04/02/2021 10:37 AM [facility] Anion Gap 14 8 - 18 mmol/L 04/02/2021 10:37 AM [facility] BUN 25(H) 8.9 - 20.6 mg/dL 04/02/2021 10:37 AM [facility] Creatinine 0.90 0.72 - 1.25 mg/dL 04/02/2021 10:37 AM [facility] Alkaline Phosphatase 104 40 - 150 U/L 04/02/2021 10:37 AM [facility] ALT 20 0 - 61 U/L 04/02/2021 10:37 AM [facility] AST 26 5 - 34 U/L 04/02/2021 10:37 AM [facility] Protein Total 7.5 6.4 - 8.3 gm/dL 04/02/2021 10:37 AM [facility] Albumin 3.3(L) 3.5 - 5.2 gm/dL 04/02/2021 10:37 AM [facility] Bilirubin Total 0.3 0.2 - 1.2 mg/dL 04/02/2021 10:37 AM [facility] eGFR by MDRD >60 >60 mL/min/1.7 3m2 04/02/2021 10:37 AM [facility] eGFR by MDRD >60 >60 mL/min/1.7 3m2 04/02/2021 10:37 AM BALLROOM DANCE INSTRUCTOR [facility] Blood BLOOD SPECIMEN / Unknown Venipuncture / Unknown 04/02/2021 5:00 AM BALLROOM DANCE INSTRUCTOR 04/02/2021 9:36 AM BALLROOM DANCE INSTRUCTOR us Lamberto De La Cruz MD LAB - CHEMISTRY ORDERABLES Final Result Performing Organization Address City/State/[facility] Co de Phone Number [facility] [address] [place] [address] documented in this encounter Visit Diagnoses Not on filedocumented in this encounter Care Teams Clay Mixer Relationship Specialty Start Date End Date Pepe Martel MD [address] [place] [phone] PCP - General 08/14/16 documented as of this encounter
--- OUTSIDE RECORDS SUMMARY | 2024-12-28 17:50 | XMS_ITS | Encounter Summary ---
Author Organization [facility] Address [address] [place] [address] Care Team Providers Care Waiter/Waitress Second Class Name Role Phone Pepe Martel MD Primary Care Provider [phone] Encounter Details Date Type Department Care Team (Late st Contact Info) Description 04/17/2021 Lab Requisition [facility] [address] [place] [address] Lamberto De La Cruz MD [address] [facility] [address] [place] [address] Social History Tobacco Use Types [...] W AUTO DIFFERENTIAL STAT 04/17/2021 5:00 AM SPED TEACHER COMPREHENSIVE METABOLIC PANEL STAT 04/17/2021 5:00 AM SPED TEACHER documented in this encounter Results * (ABNORMAL) CBC WITH DIFFERENTIAL (04/17/2021 5:00 AM SPED TEACHER) WBC 9.1 4.4 - 10.7 x10E9/L 04/17/2021 9:45 AM SPED TEACHER [facility] WBC Corrected 04/17/2021 9:45 AM SPED TEACHER [facility] RBC 3.88 3.80 - 5.40 x10E12/L 04/17/2021 9:45 AM SPED TEACHER [facility] Hemoglobin 11.0(L) 12.0 - 17.6 gm/dL 04/17/2021 9:45 AM SPED TEACHER [facility] Hematocrit 34.8(L) 35.2 - 51.7 % 04/17/2021 9:45 AM SPED TEACHER [facility] MCV 89.7 80.7 - 98.3 fl 04/17/2021 9:45 AM SPED TEACHER [facility] MCH 28.4 26.7 - 34.0 pg 04/17/2021 9:45 AM SPED TEACHER [facility] MCHC 31.6 30.8 - 35.9 gm/dL 04/17/2021 9:45 AM [facility] Platelet Count 314 153 - 416 x10E9/L 04/17/2021 9:45 AM [facility] RDW-CV 14.4 12.1 - 14.9 % 04/17/2021 9:45 AM [facility] MPV 9.9 9.4 - 12.9 fl 04/17/2021 9:45 AM [facility] Neutrophils % 66.0 44.0 - 73.0 % 04/17/2021 9:45 AM [facility] Lymphocytes % 16.5(L) 20.0 - 43.0 % 04/17/2021 9:45 AM [facility] Monocytes % 13.5(H) 5.0 - 13.0 % 04/17/2021 9:45 AM [facility] Eosinophils % 3.1 0.0 - 6.0 % 04/17/2021 9:45 AM [facility] Basophils % 0.7 0.0 - 2.0 % 04/17/2021 9:45 AM [facility] Immature Granulocytes 0.2 0 - 1 % 04/17/2021 9:45 AM [facility] Neutrophil Absolute 6.01 2.01 - 7.14 x10E9/L 04/17/2021 9:45 AM [facility] Lymphocytes Absolute 1.50 1.07 - 3.94 x10E9/L 04/17/2021 9:45 AM [facility] Monocytes Absolute 1.23(H) 0.26 - 1.07 x10E9/L 04/17/2021 9:45 AM [facility] Eosinophils Absolute 0.28 0 - 0.47 x10E9/L 04/17/2021 9:45 AM [facility] Basophils Absolute 0.06 0 - 0.08 x10E9/L 04/17/2021 9:45 AM [facility] Immature Granulocytes Absolute 0.02 0.00 - 0.06 x10E9/L 04/17/2021 9:45 AM [facility] nRBC Auto 0 /100 WBC 04/17/2021 9:45 AM [facility] Blood BLOOD SPECIMEN / Unknown Venipuncture / Unknown 04/17/2021 5:00 AM SPED TEACHER 04/17/2021 9:29 AM [facility] us Lamberto De La Cruz MD LAB - HEMATOLOGY ORDERABLES Giselle bryan Result [facility] [address] [place] [address] * (ABNORMAL) COMPREHENSIVE METABOLIC PANEL (04/17/2021 5:00 AM [facility]) Glucose 98 70 - 105 mg/dL 04/17/2021 10:36 AM [facility] Sodium 138 136 - 145 mmol/L 04/17/2021 10:36 AM [facility] Potassium 4.4 3.5 - 5.1 mmol/L 04/17/2021 10:36 AM [facility] Chloride 102 98 - 107 mmol/L 04/17/2021 10:36 AM [facility] CO2 23 23 - 31 mmol/L 04/17/2021 10:36 AM [facility] Calcium 9.5 8.4 - 10.4 mg/dL 04/17/2021 10:36 AM [facility] Anion Gap 13 8 - 18 mmol/L 04/17/2021 10:36 AM [facility] BUN 25(H) 8.9 - 20.6 mg/dL 04/17/2021 10:36 AM [facility] Creatinine 0.88 0.72 - 1.25 mg/dL 04/17/2021 10:36 AM [facility] Alkaline Phosphatase 94 40 - 150 U/L 04/17/2021 10:36 AM [facility] ALT 27 0 - 61 U/L 04/17/2021 10:36 AM [facility] AST 22 5 - 34 U/L 04/17/2021 10:36 AM [facility] Protein Total 7.6 6.4 - 8.3 gm/dL 04/17/2021 10:36 AM [facility] Albumin 3.6 3.5 - 5.2 gm/dL 04/17/2021 10:36 AM [facility] Bilirubin Total 0.2 0.2 - 1.2 mg/dL 04/17/2021 10:36 AM [facility] eGFR by MDRD >60 >60 mL/min/1.7 3m2 04/17/2021 10:36 AM SPED TEACHER [facility] eGFR by MDRD >60 >60 mL/min/1.7 3m2 04/17/2021 10:36 AM SPED TEACHER [facility] Blood BLOOD SPECIMEN / Unknown Venipuncture / Unknown 04/17/2021 5:00 AM SPED TEACHER 04/17/2021 9:29 AM SPED TEACHER Lamberto De La Cruz MD LAB - CHEMISTRY ORDERABLES Final Result Performing Organization Address City/State/[facility] Co de Phone Number [facility] [address] [place] [address] documented in this encounter Visit Diagnoses Not on filedocumented in this encounter Care Teams Waiter/Waitress Second Class Relationship Specialty Start Date End Date Pepe Martel MD [address] [place] [phone] PCP - General 08/14/16 documented as of this encounter
--- OUTSIDE RECORDS SUMMARY | 2024-12-28 17:50 | XMS_ITS | Encounter Summary ---
Author Organization [facility] Address [address] [facility] [address] Care Team Providers Care Ceo Name Role Phone Pepe Martel MD Primary Care Provider [phone] Encounter Details Date Type Department Care Team (Late st Contact Info) Description 10/08/2021 Lab Requisition [facility] [address] [place], [place] [id number] [place] [address] [place] [address] Social History Tobacco Use Types [...] Yellow Straw, Yellow 10/08/2021 8:33 AM CDT [facility] Clarity UA Slt Cloudy(A) Clear 10/08/2021 8:33 AM CDT [facility] Glucose UA Negative Negative 10/08/2021 8:33 AM CDT [facility] Bilirubin UA Negative Negative 10/08/2021 8:33 AM CDT [facility] Ketone UA Negative Negative 10/08/2021 8:33 AM CDT [facility] Specific [place] UA 1.015 1.005 - 1.030 10/08/2021 8:33 AM CDT [facility] Blood UA Negative Negative 10/08/2021 8:33 AM CDT [facility] pH UA 7.0 5.0 - 8.0 pH 10/08/2021 8:33 AM CDT [facility] Protein UA Negative Negative 10/08/2021 8:33 AM CDT [facility] Urobilinogen UA Negative Negative mg/dL 10/08/2021 8:33 AM CDT [facility] Nitrite UA Negative Negative 10/08/2021 8:33 AM CDT [facility] Leukocyte Esterase UA Negative Negative 10/08/2021 8:33 AM CDT [facility] Urine Microscopy Urine microscopy not indicated 10/08/2021 8:33 AM CDT [facility] Urine URINE SPECIMEN OBTAINED BY CLEAN CATCH PROCEDURE / Unknown Collection / Unknown 10/07/2021 5:16 PM CDT 10/08/2021 7:51 AM CDT Narrative [facility] - 10/08/2021 8:33 AM CDT Ascorbic Acid can cause false negative urine strip tests for blood, glucose, nitrite, and bilirubin. us Braden A David ROY LAB - URINALYSIS ORDERABLES F inal Result [facility] [address] [place], [place] [id number] documented in this encounter Visit Diagnoses Not on filedocumented in this encounter Care Teams Ceo Relationship Specialty Start Date End Date Pepe Martel MD [address] [place] [id number] PCP - General 08/14/16 documented as of this encounter
--- OUTSIDE RECORDS SUMMARY | 2024-12-28 17:50 | XMS_ITS | Encounter Summary ---
Author Organization [facility] Address [address] [facility] [address] [place] [address] Care Team Providers Care Camp Cook Name Role Phone Pepe Martel MD Primary Care Provider [phone] Encounter Details Date Type Department Care Team (Late st Contact Info) Description 08/28/[address] [facility] [address] [place] [address] [place] [address] [place] [address] Social History Tobacco Use Types Packs/Day Years [...] CBC WITH DIFFERENTIAL (08/28/2021 3:00 AM CDT) [facility] WBC 10.2 4.4 - 10.7 x10E9/L 08/28/2021 10:44 AM CDT [facility] WBC Corrected 08/28/2021 10:44 AM CDT [facility] RBC 4.55 3.80 - 5.40 x10E12/L 08/28/2021 10:44 AM CDT [facility] Hemoglobin 11.9(L) 12.0 - 17.6 gm/dL 08/28/2021 10:44 AM CDT [facility] Hematocrit 39.0 35.2 - 51.7 % 08/28/2021 10:44 AM CDT [facility] MCV 85.7 80.7 - 98.3 fl 08/28/2021 10:44 AM CDT [facility] MCH 26.2(L) 26.7 - 34.0 pg 08/28/2021 10:44 AM CDT [facility] MCHC 30.5(L) 30.8 - 35.9 gm/dL 08/28/2021 10:44 AM [facility] Platelet Count 462(H) 153 - 416 x10E9/L 08/28/2021 10:44 AM [facility] RDW-CV 14.7 12.1 - 14.9 % 08/28/2021 10:44 AM [facility] MPV 10.4 9.4 - 12.9 fl 08/28/2021 10:44 AM [facility] Neutrophils % 65.6 44.0 - 73.0 % 08/28/2021 10:44 AM [facility] Lymphocytes % 22.2 20.0 - 43.0 % 08/28/2021 10:44 AM [facility] Monocytes % 9.3 5.0 - 13.0 % 08/28/2021 10:44 AM [facility] Eosinophils % 2.3 0.0 - 6.0 % 08/28/2021 10:44 AM [facility] Basophils % 0.3 0.0 - 2.0 % 08/28/2021 10:44 AM [facility] Immature Granulocytes 0.3 0 - 1 % 08/28/2021 10:44 AM [facility] Neutrophil Absolute 6.67 2.01 - 7.14 x10E9/L 08/28/2021 10:44 AM [facility] Lymphocytes Absolute 2.26 1.07 - 3.94 x10E9/L 08/28/2021 10:44 AM [facility] Monocytes Absolute 0.94 0.26 - 1.07 x10E9/L 08/28/2021 10:44 AM [facility] Eosinophils Absolute 0.23 0 - 0.47 x10E9/L 08/28/2021 10:44 AM [facility] Basophils Absolute 0.03 0 - 0.08 x10E9/L 08/28/2021 10:44 AM [facility] Immature Granulocytes Absolute 0.03 0.00 - 0.06 x10E9/L 08/28/2021 10:44 AM [facility] nRBC Auto 0 /100 WBC 08/28/2021 10:44 AM [facility] Blood BLOOD SPECIMEN / Unknown Venipuncture / Unknown 08/28/2021 3:00 AM CDT 08/28/2021 10:29 AM CDT us Vinicio Quintanilla MD LAB - HEMATOLOGY ORDERABLES Giselle adams Result [facility] [address] [place] [address] * (ABNORMAL) COMPREHENSIVE METABOLIC PANEL (08/28/2021 3:00 AM CDT) [facility] Glucose 104 70 - 105 mg/dL 08/28/2021 11:05 AM [facility] Sodium 139 136 - 145 mmol/L 08/28/2021 11:05 AM [facility] Potassium 5.0 3.5 - 5.1 mmol/L 08/28/2021 11:05 AM [facility] Chloride 100 98 - 107 mmol/L 08/28/2021 11:05 AM [facility] CO2 24 23 - 31 mmol/L 08/28/2021 11:05 AM [facility] Calcium 10.4 8.4 - 10.4 mg/dL 08/28/2021 11:05 AM [facility] Anion Gap 15 8 - 18 mmol/L 08/28/2021 11:05 AM [facility] BUN 29(H) 8.9 - 20.6 mg/dL 08/28/2021 11:05 AM [facility] Creatinine 0.99 0.72 - 1.25 mg/dL 08/28/2021 11:05 AM [facility] Alkaline Phosphatase 176(H) 40 - 150 U/L 08/28/2021 11:05 AM [facility] ALT 28 0 - 61 U/L 08/28/2021 11:05 AM [facility] AST 18 5 - 34 U/L 08/28/2021 11:05 AM [facility] Protein Total 8.6(H) 6.4 - 8.3 gm/dL 08/28/2021 11:05 AM [facility] Albumin 4.0 3.5 - 5.2 gm/dL 08/28/2021 11:05 AM [facility] Bilirubin Total 0.3 0.2 - 1.2 mg/dL 08/28/2021 11:[address] [facility] eGFR by CKD-EPI >90 >=90 mL/min/1.7 3 m2 08/28/2021 11:[address] [facility] Blood BLOOD SPECIMEN / Unknown Venipuncture / Unknown 08/28/2021 3:00 AM CDT 08/28/2021 10:[address] [facility] - 08/28/2021 11:05 AM CDT eGFR result was calculated using the updated CKD-EPI Creatinine Equations (2020). Prior to go live 2021 the eGFR was calculated using the MDRD calculation. Please note Reference Range change. us Vinicio Quintanilla MD LAB - CHEMISTRY ORDERABLES Final Result Performing Organization Address City/State/[facility] Co de Phone Number [facility] [address] [place] [address] documented in this encounter Visit Diagnoses Not on filedocumented in this encounter Care Teams Camp Cook Relationship Specialty Start Date End Date Pepe Martel MD [address] [place] [id number] PCP - General 08/14/16 documented as of this encounter
--- OUTSIDE RECORDS SUMMARY | 2024-12-28 17:50 | XMS_ITS | Encounter Summary ---
Author Organization [facility] Address [address] [place] [address] Care Team Providers Care Box Tender Name Role Phone Pepe Martel MD Primary Care Provider [phone] Encounter Details Date Type Department Care Team (Late st Contact Info) Description 08/14/2021 Lab Requisition [facility] [address] [place] [address] [place] [address] [place] [address] Social History Tobacco Use Types Packs/Day Years [...] - 10.7 x10E9/L 08/14/2021 12:07 PM CDT [facility] WBC Corrected 08/14/2021 12:07 PM CDT [facility] RBC 4.31 3.80 - 5.40 x10E12/L 08/14/2021 12:07 PM CDT [facility] Hemoglobin 11.3(L) 12.0 - 17.6 gm/dL 08/14/2021 12:07 PM CDT [facility] Hematocrit 36.4 35.2 - 51.7 % 08/14/2021 12:07 PM CDT [facility] MCV 84.5 80.7 - 98.3 fl 08/14/2021 12:07 PM CDT [facility] MCH 26.2(L) 26.7 - 34.0 pg 08/14/2021 12:07 PM CDT [facility] MCHC 31.0 30.8 - 35.9 gm/dL 08/14/2021 12:07 PM CDT [facility] Platelet Count 499(H) 153 - 416 x10E9/L 08/14/2021 12:07 PM [facility] RDW-CV 15.4(H) 12.1 - 14.9 % 08/14/2021 12:07 PM [facility] MPV 9.7 9.4 - 12.9 fl 08/14/2021 12:07 PM [facility] Neutrophils % 73.3(H) 44.0 - 73.0 % 08/14/2021 12:07 PM [facility] Lymphocytes % 16.1(L) 20.0 - 43.0 % 08/14/2021 12:07 PM [facility] Monocytes % 7.6 5.0 - 13.0 % 08/14/2021 12:07 PM [facility] Eosinophils % 2.6 0.0 - 6.0 % 08/14/2021 12:07 PM [facility] Basophils % 0.2 0.0 - 2.0 % 08/14/2021 12:07 PM [facility] Immature Granulocytes 0.2 0 - 1 % 08/14/2021 12:07 PM [facility] Neutrophil Absolute 7.07 2.01 - 7.14 x10E9/L 08/14/2021 12:07 PM [facility] Lymphocytes Absolute 1.55 1.07 - 3.94 x10E9/L 08/14/2021 12:07 PM [facility] Monocytes Absolute 0.73 0.26 - 1.07 x10E9/L 08/14/2021 12:07 PM [facility] Eosinophils Absolute 0.25 0 - 0.47 x10E9/L 08/14/2021 12:07 PM [facility] Basophils Absolute 0.02 0 - 0.08 x10E9/L 08/14/2021 12:07 PM [facility] Immature Granulocytes Absolute 0.02 0.00 - 0.06 x10E9/L 08/14/2021 12:07 PM [facility] nRBC Auto 0 /100 WBC 08/14/2021 12:07 PM [facility] Blood BLOOD SPECIMEN / Unknown Venipuncture / Unknown 08/14/2021 9:30 AM CDT 08/14/2021 12:02 PM CDT us Vinicio Quintanilla MD LAB - HEMATOLOGY ORDERABLES Giselle adams Result [facility] [address] [place], [place] [id number] documented in this encounter Visit Diagnoses Not on filedocumented in this encounter Care Teams Box Tender Relationship Specialty Start Date End Date Pepe Martel MD [address] [place] [address] [address] [place] [address] PCP - General 08/14/16 documented as of this encounter
--- OUTSIDE RECORDS SUMMARY | 2024-12-28 17:50 | XMS_ITS | Encounter Summary ---
Author Organization [facility] Address [address] [place] [address] Care Team Providers Care Bow String Maker Name Role Phone Pepe Martel MD Primary Care Provider Encounter Details Date Type Department Care Team (Late st Contact Info) Description 09/25/2021 Lab Requisition [facility] [address] [place] [address] [place] [address] [place] [address] Social History Tobacco Use Types Packs/Day Years [...] - 10.7 x10E9/L 09/25/2021 10:10 AM CDT [facility] WBC Corrected 09/25/2021 10:10 AM CDT [facility] RBC 4.36 3.80 - 5.40 x10E12/L 09/25/2021 10:10 AM CDT [facility] Hemoglobin 11.5(L) 12.0 - 17.6 gm/dL 09/25/2021 10:10 AM CDT [facility] Hematocrit 38.7 35.2 - 51.7 % 09/25/2021 10:10 AM CDT [facility] MCV 88.8 80.7 - 98.3 fl 09/25/2021 10:10 AM CDT [facility] MCH 26.4(L) 26.7 - 34.0 pg 09/25/2021 10:10 AM CDT [facility] MCHC 29.7(L) 30.8 - 35.9 gm/dL 09/25/2021 10:10 AM [facility] Platelet Count 400 153 - 416 x10E9/L 09/25/2021 10:10 AM [facility] RDW-CV 13.6 12.1 - 14.9 % 09/25/2021 10:10 AM [facility] MPV 10.8 9.4 - 12.9 fl 09/25/2021 10:10 AM [facility] Neutrophils % 54.5 44.0 - 73.0 % 09/25/2021 10:10 AM [facility] Lymphocytes % 31.1 20.0 - 43.0 % 09/25/2021 10:10 AM [facility] Monocytes % 9.3 5.0 - 13.0 % 09/25/2021 10:10 AM [facility] Eosinophils % 4.6 0.0 - 6.0 % 09/25/2021 10:10 AM [facility] Basophils % 0.4 0.0 - 2.0 % 09/25/2021 10:10 AM [facility] Immature Granulocytes 0.1 0 - 1 % 09/25/2021 10:10 AM [facility] Neutrophil Absolute 3.63 2.01 - 7.14 x10E9/L 09/25/2021 10:10 AM [facility] Lymphocytes Absolute 2.08 1.07 - 3.94 x10E9/L 09/25/2021 10:10 AM [facility] Monocytes Absolute 0.62 0.26 - 1.07 x10E9/L 09/25/2021 10:10 AM [facility] Eosinophils Absolute 0.31 0 - 0.47 x10E9/L 09/25/2021 10:10 AM [facility] Basophils Absolute 0.03 0 - 0.08 x10E9/L 09/25/2021 10:10 AM [facility] Immature Granulocytes Absolute 0.01 0.00 - 0.06 x10E9/L 09/25/2021 10:10 AM [facility] nRBC Auto 0 /100 WBC 09/25/2021 10:10 AM [facility] Blood BLOOD SPECIMEN / Unknown Venipuncture / Unknown 09/25/2021 4:00 AM CDT 09/25/2021 9:31 AM CDT us Vinicio Quintanilla MD LAB - HEMATOLOGY ORDERABLES Giselle adams Result [facility] [address] [place] [address] * (ABNORMAL) COMPREHENSIVE METABOLIC PANEL (09/25/2021 4:00 AM CDT) [facility] Glucose 120(H) 70 - 105 mg/dL 09/25/2021 10:34 AM CDT [facility] Sodium 143 136 - 145 mmol/L 09/25/2021 10:34 AM CDT [facility] Potassium 4.3 3.5 - 5.1 mmol/L 09/25/2021 10:34 AM CDT [facility] Chloride 105 98 - 107 mmol/L 09/25/2021 10:34 AM CDT [facility] CO2 25 23 - 31 mmol/L 09/25/2021 10:34 AM CDT [facility] Calcium 9.9 8.4 - 10.4 mg/dL 09/25/2021 10:34 AM CDT [facility] Anion Gap 13 8 - 18 mmol/L 09/25/2021 10:34 AM CDT [facility] BUN 36(H) 8.9 - 20.6 mg/dL 09/25/2021 10:34 AM CDT [facility] Creatinine 1.06 0.72 - 1.25 mg/dL 09/25/2021 10:34 AM CDT [facility] Alkaline Phosphatase 140 40 - 150 U/L 09/25/2021 10:34 AM CDT [facility] ALT 29 0 - 61 U/L 09/25/2021 10:34 AM CDT [facility] AST 18 5 - 34 U/L 09/25/2021 10:34 AM CDT [facility] Protein Total 7.5 6.4 - 8.3 gm/dL 09/25/2021 10:34 AM CDT [facility] Albumin 3.5 3.5 - 5.2 gm/dL 09/25/2021 10:34 AM CDT [facility] Bilirubin Total 0.2 0.2 - 1.2 mg/dL 09/25/2021 10:34 AM CDT [facility] eGFR by CKD-EPI >90 >=90 mL/min/1.7 3 m2 09/25/2021 10:34 AM CDT [facility] Blood BLOOD SPECIMEN / Unknown Venipuncture / Unknown 09/25/2021 4:00 AM CDT 09/25/2021 9:31 AM CDT us Vinicio Quintanilla MD LAB - CHEMISTRY ORDERABLES Final Result [facility] [address] [place] [address] documented in this encounter Visit Diagnoses Not on filedocumented in this encounter Care Teams Bow String Maker Relationship Specialty Start Date End Date Pepe Martel MD [address] [place] [address] 3 [place] [address] PCP - General 08/14/16 documented as of this encounter
--- OUTSIDE RECORDS SUMMARY | 2024-12-28 17:50 | XMS_ITS | Encounter Summary ---
Author Organization [facility] Address [address] [place] [address] Care Team Providers Care Site Monitor Name Role Phone Pepe Martel MD Primary Care Provider [phone] Encounter Details Date Type Department Care Team (Late st Contact Info) Description 12/17/[address] [facility] [address] [place] [address] [place] [address] [place] [address] Social History Tobacco Use Types Packs/Day Years [...] COMPREHENSIVE METABOLIC PANEL (12/17/2021 3:35 AM CDT) [facility] Glucose 99 70 - 105 mg/dL 12/17/2021 8:[address] [facility] Sodium 140 136 - 145 mmol/L 12/17/2021 8:[address] [facility] Potassium 5.2(H) 3.5 - 5.1 mmol/L 12/17/2021 8:[address] [facility] Chloride 101 98 - 107 mmol/L 12/17/2021 8:[address] [facility] CO2 24 23 - 31 mmol/L 12/17/2021 8:[address] [facility] Calcium 10.0 8.4 - 10.4 mg/dL 12/17/2021 8:[address] [facility] Anion Gap 15 8 - 18 mmol/L 12/17/2021 8:[address] [facility] BUN 29(H) 8.9 - 20.6 mg/dL 12/17/2021 8:[address] [facility] Creatinine 1.01 0.72 - 1.25 mg/dL [...] - 1.2 mg/dL 12/17/2021 8:55 AM CDT [facility] eGFR by CKD-EPI >90 >=90 mL/min/1.7 3 m2 12/17/2021 8:[address] [facility] Blood BLOOD SPECIMEN / Unknown Venipuncture / Unknown 12/17/2021 3:35 AM CDT 12/17/2021 8:17 AM CDT us Vinicio Quintanilla MD LAB - CHEMISTRY ORDERABLES Final Result Performing Organization Address City/State/[facility] Co de Phone Number [facility] [address] [place] [address] documented in this encounter Visit Diagnoses Not on filedocumented in this encounter Care Teams Site Monitor Relationship Specialty Start Date End Date Pepe Martel MD [address] [place] [address] [address] [place] [address] PCP - General 08/14/16 documented as of this encounter
--- OUTSIDE RECORDS SUMMARY | 2024-12-28 17:50 | XMS_ITS | Encounter Summary ---
Author Organization [facility] Address [address] [place] [address] Care Team Providers Care Technical Services Manager Name Role Phone Pepe Martel MD Primary Care Provider [phone] Encounter Details Date Type Department Care Team (Late st Contact Info) Description 12/08/2021 Lab Requisition [facility] [address] [place] [address] Alverto Virgen MD [address] [place] [address] [place] [address] Social History Tobacco Use Types Packs/Day Years [...] CBC WITH DIFFERENTIAL (12/08/2021 3:25 AM CDT) [facility] Signature WBC 8.7 4.4 - 10.7 x10E9/L 12/08/2021 [...] 30.8 - 35.9 gm/dL 12/08/2021 8:58 AM [facility] Platelet Count 401 153 - 416 x10E9/L 12/08/2021 8:58 AM [facility] RDW-CV 13.2 12.1 - 14.9 % 12/08/2021 8:58 AM [facility] MPV 10.3 9.4 - 12.9 fl 12/08/2021 8:58 AM [facility] Neutrophils % 65.8 44.0 - 73.0 % 12/08/2021 8:58 AM [facility] Lymphocytes % 23.0 20.0 - 43.0 % 12/08/2021 8:58 AM [facility] Monocytes % 8.4 5.0 - 13.0 % 12/08/2021 8:58 AM [facility] Eosinophils % 2.3 0.0 - 6.0 % 12/08/2021 8:58 AM [facility] Basophils % 0.3 0.0 - 2.0 % 12/08/2021 8:58 AM [facility] Immature Granulocytes 0.2 0 - 1 % 12/08/2021 8:58 AM [facility] Neutrophil Absolute 5.70 2.01 - 7.14 x10E9/L 12/08/2021 8:58 AM [facility] Lymphocytes Absolute 2.00 1.07 - 3.94 x10E9/L 12/08/2021 8:58 AM [facility] Monocytes Absolute 0.73 0.26 - 1.07 x10E9/L 12/08/2021 8:58 AM [facility] Eosinophils Absolute 0.20 0 - 0.47 x10E9/L 12/08/2021 8:58 AM [facility] Basophils Absolute 0.03 0 - 0.08 x10E9/L 12/08/2021 8:58 AM [facility] Immature Granulocytes Absolute 0.02 0.00 - 0.06 x10E9/L 12/08/2021 8:58 AM [facility] nRBC Auto 0 /100 WBC 12/08/2021 8:58 AM [facility] Blood BLOOD SPECIMEN / Unknown Venipuncture / Unknown 12/08/2021 3:25 AM CDT 12/08/2021 8:41 AM CDT us Alverto Virgen MD LAB - HEMATOLOGY ORDERABL ES Final Result [facility] [address] [place] [address] * (ABNORMAL) COMPREHENSIVE METABOLIC PANEL (12/08/2021 3:25 AM CDT) Pathologist [facility] Glucose 103 70 - 105 mg/dL 12/08/2021 9:24 AM CDT [facility] Sodium 139 136 - 145 mmol/L 12/08/2021 9:24 AM CDT [facility] Potassium 4.9 3.5 - 5.1 mmol/L 12/08/2021 9:24 AM CDT [facility] Chloride 100 98 - 107 mmol/L 12/08/2021 9:24 AM CDT [facility] CO2 24 23 - 31 mmol/L 12/08/2021 9:24 AM CDT [facility] Calcium 10.1 8.4 - 10.4 mg/dL 12/08/2021 9:24 AM CDT [facility] Anion Gap 15 8 - 18 mmol/L 12/08/2021 9:24 AM CDT [facility] BUN 33(H) 8.9 - 20.6 mg/dL 12/08/2021 9:24 AM CDT [facility] Creatinine 1.11 0.72 - 1.25 mg/dL 12/08/2021 9:24 AM CDT [facility] Alkaline Phosphatase 135 40 - 150 U/L 12/08/2021 9:24 AM CDT [facility] ALT 16 0 - 61 U/L 12/08/2021 9:24 AM CDT [facility] AST 13 5 - 34 U/L 12/08/2021 9:24 AM CDT [facility] Protein Total 7.7 6.4 - 8.3 gm/dL 12/08/2021 9:24 AM CDT [facility] Albumin 3.8 3.5 - 5.2 gm/dL 12/08/2021 9:24 AM CDT [facility] Bilirubin Total 0.3 0.2 - 1.2 mg/dL 12/08/2021 9:24 AM CDT [facility] eGFR by CKD-EPI 89(L) >=90 mL/min/1.7 3 m2 12/08/2021 9:24 AM CDT [facility] Blood BLOOD SPECIMEN / Unknown Venipuncture / Unknown 12/08/2021 3:25 AM CDT 12/08/2021 8:41 AM CDT us Alverto Virgen MD LAB - CHEMISTRY ORDERABLE S Final Result [facility] [address] [place], [place] [id number] documented in this encounter Visit Diagnoses Not on filedocumented in this encounter Care Teams Technical Services Manager Relationship Specialty Start Date End Date Pepe Martel MD [address] [place] [address] 3 [place] [address] PCP - General 08/14/16 documented as of this encounter
--- OUTSIDE RECORDS SUMMARY | 2024-12-28 17:50 | XMS_ITS | Encounter Summary ---
Author Organization [facility] Address [address] [place] [address] Care Team Providers Care Book Repairer Name Role Phone Pepe Martel MD Primary Care Provider [phone] Encounter Details Date Type Department Care Team (Late st Contact Info) Description 03/20/2021 Lab Requisition [facility] [address] [place] [address] Andrés Ferro MD [address] [place] [address] [address] [place] [address] Social History Tobacco Use Types Packs/Day Years [...] 30.8 - 35.9 gm/dL 03/20/2021 2:12 PM [facility] Platelet Count 546(H) 153 - 416 x10E9/L 03/20/2021 2:12 PM [facility] RDW-CV 13.7 12.1 - 14.9 % 03/20/2021 2:12 PM [facility] MPV 10.0 9.4 - 12.9 fl 03/20/2021 2:12 PM [facility] Neutrophils % 71.0 44.0 - 73.0 % 03/20/2021 2:12 PM [facility] Lymphocytes % 15.4(L) 20.0 - 43.0 % 03/20/2021 2:12 PM [facility] Monocytes % 8.2 5.0 - 13.0 % 03/20/2021 2:12 PM [facility] Eosinophils % 4.1 0.0 - 6.0 % 03/20/2021 2:12 PM [facility] Basophils % 0.7 0.0 - 2.0 % 03/20/2021 2:12 PM [facility] Immature Granulocytes 0.6 0 - 1 % 03/20/2021 2:12 PM [facility] Neutrophil Absolute 6.97 2.01 - 7.14 x10E9/L 03/20/2021 2:12 PM [facility] Lymphocytes Absolute 1.51 1.07 - 3.94 x10E9/L 03/20/2021 2:12 PM [facility] Monocytes Absolute 0.81 0.26 - 1.07 x10E9/L 03/20/2021 2:12 PM [facility] Eosinophils Absolute 0.40 0 - 0.47 x10E9/L 03/20/2021 2:12 PM [facility] Basophils Absolute 0.07 0 - 0.08 x10E9/L 03/20/2021 2:12 PM [facility] Immature Granulocytes Absolute 0.06 0.00 - 0.06 x10E9/L 03/20/2021 2:12 PM [facility] nRBC Auto 0 /100 WBC 03/20/2021 2:12 PM [facility] Blood BLOOD SPECIMEN / Unknown Venipuncture / Unknown 03/20/2021 3:40 AM CDT 03/20/2021 1:25 PM CDT us Andrés Ferro MD LAB - HEMATOLOGY ORDERABLE S Final Result [facility] [address] [place], [place] [id number] * (ABNORMAL) COMPREHENSIVE METABOLIC PANEL (03/20/2021 3:40 AM CDT) Pathologist [facility] Glucose 120(H) 70 - 105 mg/dL 03/20/2021 2:47 PM CDT [facility] Sodium 136 136 - 145 mmol/L 03/20/2021 2:47 PM CDT [facility] Potassium 5.6(H) 3.5 - 5.1 mmol/L 03/20/2021 2:47 PM CDT [facility] Chloride 100 98 - 107 mmol/L 03/20/2021 2:47 PM CDT [facility] CO2 22(L) 23 - 31 mmol/L 03/20/2021 2:47 PM CDT [facility] Calcium 8.5 8.4 - 10.4 mg/dL 03/20/2021 2:47 PM CDT [facility] Anion Gap 14 8 - 18 mmol/L 03/20/2021 2:47 PM CDT [facility] BUN 31(H) 8.9 - 20.6 mg/dL 03/20/2021 2:47 PM CDT [facility] Creatinine 1.29(H) 0.72 - 1.25 mg/dL 03/20/2021 2:47 PM CDT [facility] Alkaline Phosphatase 200(H) 40 - 150 U/L 03/20/2021 2:47 PM CDT [facility] ALT 37 0 - 61 U/L 03/20/2021 2:47 PM CDT [facility] AST 49(H) 5 - 34 U/L 03/20/2021 2:47 PM CDT [facility] Protein Total 8.8(H) 6.4 - 8.3 gm/dL 03/20/2021 2:47 PM CDT [facility] Albumin 3.1(L) 3.5 - 5.2 gm/dL 03/20/2021 2:47 PM CDT [facility] Bilirubin Total 0.2 0.2 - 1.2 mg/dL 03/20/2021 2:47 PM CDT [facility] eGFR by MDRD >60 >60 mL/min/1.7 3m2 03/20/2021 2:47 PM CDT [facility] eGFR by MDRD >60 >60 mL/min/1.7 3m2 03/20/2021 2:47 PM CDT [facility] Blood BLOOD SPECIMEN / Unknown Venipuncture / Unknown 03/20/2021 3:40 AM CDT 03/20/2021 1:25 PM CDT us Andrés Ferro MD LAB - CHEMISTRY ORDERABLES Final Result [facility] [address] [place], [place] [id number] documented in this encounter Visit Diagnoses Not on filedocumented in this encounter Care Teams Book Repairer Relationship Specialty Start Date End Date Pepe Martel MD [address] [place] [id number] PCP - General 08/14/16 documented as of this encounter
--- OUTSIDE RECORDS SUMMARY | 2024-12-28 17:50 | XMS_ITS | Encounter Summary ---
Author Organization [facility] Address [address] [place] [address] Care Team Providers Care Teacher Public Health Name Role Phone Pepe Martel MD Primary Care Provider [phone] Encounter Details Date Type Department Care Team (Late st Contact Info) Description 09/15/2021 Lab Requisition [facility] [address] [place] [address] [place] [address] [place] [address] Social History Tobacco Use Types Packs/Day Years [...] CBC WITH DIFFERENTIAL (09/15/2021 4:30 AM CDT) [facility] WBC 8.9 4.4 - 10.7 x10E9/L 09/15/2021 10:35 AM CDT [facility] WBC Corrected 09/15/2021 10:35 AM CDT [facility] RBC 4.18 3.80 - 5.40 x10E12/L 09/15/2021 10:35 AM CDT [facility] Hemoglobin 11.1(L) 12.0 - 17.6 gm/dL 09/15/2021 10:35 AM CDT [facility] Hematocrit 36.2 35.2 - 51.7 % 09/15/2021 10:35 AM CDT [facility] MCV 86.6 80.7 - 98.3 fl 09/15/2021 10:35 AM CDT [facility] MCH 26.6(L) 26.7 - 34.0 pg 09/15/2021 10:35 AM CDT [facility] MCHC 30.7(L) 30.8 - 35.9 gm/dL 09/15/2021 10:35 AM [facility] Platelet Count 478(H) 153 - 416 x10E9/L 09/15/2021 10:35 AM [facility] RDW-CV 14.2 12.1 - 14.9 % 09/15/2021 10:35 AM [facility] MPV 10.3 9.4 - 12.9 fl 09/15/2021 10:35 AM [facility] Neutrophils % 65.9 44.0 - 73.0 % 09/15/2021 10:35 AM [facility] Lymphocytes % 21.5 20.0 - 43.0 % 09/15/2021 10:35 AM [facility] Monocytes % 9.4 5.0 - 13.0 % 09/15/2021 10:35 AM [facility] Eosinophils % 2.6 0.0 - 6.0 % 09/15/2021 10:35 AM [facility] Basophils % 0.4 0.0 - 2.0 % 09/15/2021 10:35 AM [facility] Immature Granulocytes 0.2 0 - 1 % 09/15/2021 10:35 AM [facility] Neutrophil Absolute 5.85 2.01 - 7.14 x10E9/L 09/15/2021 10:35 AM [facility] Lymphocytes Absolute 1.91 1.07 - 3.94 x10E9/L 09/15/2021 10:35 AM [facility] Monocytes Absolute 0.84 0.26 - 1.07 x10E9/L 09/15/2021 10:35 AM [facility] Eosinophils Absolute 0.23 0 - 0.47 x10E9/L 09/15/2021 10:35 AM [facility] Basophils Absolute 0.04 0 - 0.08 x10E9/L 09/15/2021 10:35 AM [facility] Immature Granulocytes Absolute 0.02 0.00 - 0.06 x10E9/L 09/15/2021 10:35 AM [facility] nRBC Auto 0 /100 WBC 09/15/2021 10:35 AM [facility] Blood BLOOD SPECIMEN / Unknown Venipuncture / Unknown 09/15/2021 4:30 AM CDT 09/15/2021 8:22 AM CDT us Vinicio Quintanilla MD LAB - HEMATOLOGY ORDERABLES Giselle adams Result [facility] [address] [place] [address] * (ABNORMAL) COMPREHENSIVE METABOLIC PANEL (09/15/2021 4:30 AM CDT) [facility] Glucose 99 70 - 105 mg/dL 09/15/2021 [...] 3.5 - 5.2 gm/dL 09/15/2021 10:51 AM CDT [facility] Bilirubin Total 0.2 0.2 - 1.2 mg/dL 09/15/2021 10:51 AM CDT [facility] eGFR by CKD-EPI >90 >=90 mL/min/1.7 3 m2 09/15/2021 10:51 AM CDT [facility] Blood BLOOD SPECIMEN / Unknown Venipuncture / Unknown 09/15/2021 4:30 AM CDT 09/15/2021 8:22 AM CDT Narrative [facility] - 09/15/2021 10:51 AM CDT eGFR result was calculated using the updated CKD-EPI Creatinine Equations (2020). Prior to go live 2021 the eGFR was calculated using the MDRD calculation. Please note Reference Range change. us Vinicio Quintanilla MD LAB - CHEMISTRY ORDERABLES Final Result Performing Organization Address City/State/[facility] Co de Phone Number [facility] [address] [place] [address] documented in this encounter Visit Diagnoses Not on filedocumented in this encounter Care Teams Teacher Public Health Relationship Specialty Start Date End Date Pepe Martel MD [address] [place] [address] 3 [place] [address] PCP - General 08/14/16 documented as of this encounter
--- OUTSIDE RECORDS SUMMARY | 2024-12-28 17:50 | XMS_ITS | Encounter Summary ---
Author Organization [facility] Address [address] [facility] [place] [address] Care Team Providers Care Welding Pantograph Operator Name Role Phone Pepe Martel MD Primary Care Provider [phone] Encounter Details Date Type Department Care Team (Late st Contact Info) Description 03/17/2021 Lab Requisition [facility] [address] [place] [address] Andrés Ferro MD [address] [place] [address] DR VARNER [address] [place] [address] Social History Tobacco Use Types Packs/Day Years [...] - 5.40 x10E12/L 03/17/2021 10:38 AM CDT [facility] Hemoglobin 9.7(L) 12.0 - 17.6 gm/dL 03/17/2021 10:38 AM CDT [facility] Hematocrit 31.8(L) 35.2 - 51.7 % 03/17/2021 10:38 AM CDT [facility] MCV 89.3 80.7 - 98.3 fl 03/17/2021 10:38 AM CDT [facility] MCH 27.2 26.7 - 34.0 pg 03/17/2021 10:38 AM CDT [facility] MCHC 30.5(L) 30.8 - 35.9 gm/dL 03/17/2021 10:38 AM [facility] Platelet Count 480(H) 153 - 416 x10E9/L 03/17/2021 10:38 AM [facility] RDW-CV 13.9 12.1 - 14.9 % 03/17/2021 10:38 AM [facility] MPV 10.5 9.4 - 12.9 fl 03/17/2021 10:38 AM [facility] Neutrophils % 74.2(H) 44.0 - 73.0 % 03/17/2021 10:38 AM [facility] Lymphocytes % 10.7(L) 20.0 - 43.0 % 03/17/2021 10:38 AM [facility] Monocytes % 9.7 5.0 - 13.0 % 03/17/2021 10:38 AM [facility] Eosinophils % 4.2 0.0 - 6.0 % 03/17/2021 10:38 AM [facility] Basophils % 0.4 0.0 - 2.0 % 03/17/2021 10:38 AM [facility] Immature Granulocytes 0.8 0 - 1 % 03/17/2021 10:38 AM [facility] Neutrophil Absolute 10.31(H) 2.01 - 7.14 x10E9/L 03/17/2021 10:38 AM [facility] Lymphocytes Absolute 1.49 1.07 - 3.94 x10E9/L 03/17/2021 10:38 AM [facility] Monocytes Absolute 1.35(H) 0.26 - 1.07 x10E9/L 03/17/2021 10:38 AM [facility] Eosinophils Absolute 0.58(H) 0 - 0.47 x10E9/L 03/17/2021 10:38 AM T [facility] Basophils Absolute 0.05 0 - 0.08 x10E9/L 03/17/2021 10:38 AM [facility] Immature Granulocytes Absolute 0.11(H) 0.00 - 0.06 x10E9/L 03/17/2021 10:38 AM [facility] nRBC Auto 0 /100 WBC 03/17/2021 10:38 AM [facility] Blood BLOOD SPECIMEN / Unknown Venipuncture / Unknown 03/17/2021 3:15 AM CDT 03/17/2021 10:09 AM CDT us Andrés Ferro MD LAB - HEMATOLOGY ORDERABLE S Final Result [facility] [address] [place] [address] * (ABNORMAL) COMPREHENSIVE METABOLIC PANEL (03/17/2021 3:15 AM CDT) Glucose 144(H) 70 - 105 mg/dL 03/17/2021 11:05 AM [facility] Sodium 136 136 - 145 mmol/L 03/17/2021 11:05 AM [facility] Potassium 4.7 3.5 - 5.1 mmol/L 03/17/2021 11:05 AM [facility] Chloride 103 98 - 107 mmol/L 03/17/2021 11:05 AM [facility] CO2 20(L) 23 - 31 mmol/L 03/17/2021 11:05 AM [facility] Calcium 8.4 8.4 - 10.4 mg/dL 03/17/2021 11:05 AM [facility] Anion Gap 13 8 - 18 mmol/L 03/17/2021 11:05 AM [facility] BUN 30(H) 8.9 - 20.6 mg/dL 03/17/2021 11:05 AM [facility] Creatinine 1.30(H) 0.72 - 1.25 mg/dL 03/17/2021 11:05 AM [facility] Alkaline Phosphatase 210(H) 40 - 150 U/L 03/17/2021 11:05 AM [facility] ALT 31 0 - 61 U/L 03/17/2021 11:05 AM [facility] AST 33 5 - 34 U/L 03/17/2021 11:05 AM [facility] Protein Total 7.5 6.4 - 8.3 gm/dL 03/17/2021 11:05 AM CDT [facility] Albumin 2.7(L) 3.5 - 5.2 gm/dL 03/17/2021 11:05 AM CDT [facility] Bilirubin Total 0.3 0.2 - 1.2 mg/dL 03/17/2021 11:05 AM CDT [facility] eGFR by MDRD >60 >60 mL/min/1.7 3m2 03/17/2021 11:05 AM CDT [facility] eGFR by MDRD >60 >60 mL/min/1.7 3m2 03/17/2021 11:05 AM CDT [facility] Blood BLOOD SPECIMEN / Unknown Venipuncture / Unknown 03/17/2021 3:15 AM CDT 03/17/2021 10:09 AM CDT us Andrés Ferro MD LAB - CHEMISTRY ORDERABLES Final Result Performing Organization Address City/State/[facility] Co de Phone Number [facility] [address] [place], [place] [phone] documented in this encounter Visit Diagnoses Not on filedocumented in this encounter Care Teams Welding Pantograph Operator Relationship Specialty Start Date End Date Pepe Martel MD [address] [place] [id number] PCP - General 08/14/16 documented as of this encounter
--- OUTSIDE RECORDS SUMMARY | 2024-12-28 17:50 | XMS_ITS | Encounter Summary ---
Author Organization [facility] Address [address] [facility] [address] Care Team Providers Care Impregnator Electrolytic Capacitors Name Role Phone Pepe Martel MD Primary Care Provider [phone] Encounter Details Date Type Department Care Team (Late st Contact Info) Description 08/25/2021 Lab Requisition [facility] [address] [place] [address] [place] [address] [place] [address] Social History Tobacco Use Types Packs/Day Years [...] - 10.7 x10E9/L 08/25/2021 10:23 AM CDT [facility] WBC Corrected 08/25/2021 10:23 AM CDT [facility] RBC 4.67 3.80 - 5.40 x10E12/L 08/25/2021 10:23 AM CDT [facility] Hemoglobin 12.2 12.0 - 17.6 gm/dL 08/25/2021 10:23 AM CDT [facility] Hematocrit 39.7 35.2 - 51.7 % 08/25/2021 10:23 AM CDT [facility] MCV 85.0 80.7 - 98.3 fl 08/25/2021 10:23 AM CDT [facility] MCH 26.1(L) 26.7 - 34.0 pg 08/25/2021 10:23 AM CDT [facility] MCHC 30.7(L) 30.8 - 35.9 gm/dL 08/25/2021 10:23 AM [facility] Platelet Count 354 153 - 416 x10E9/L 08/25/2021 10:23 AM [facility] RDW-CV 14.9 12.1 - 14.9 % 08/25/2021 10:23 AM [facility] MPV 10.1 9.4 - 12.9 fl 08/25/2021 10:23 AM [facility] Neutrophils % 61.9 44.0 - 73.0 % 08/25/2021 10:23 AM [facility] Lymphocytes % 23.1 20.0 - 43.0 % 08/25/2021 10:23 AM [facility] Monocytes % 11.0 5.0 - 13.0 % 08/25/2021 10:23 AM [facility] Eosinophils % 3.3 0.0 - 6.0 % 08/25/2021 10:23 AM [facility] Basophils % 0.4 0.0 - 2.0 % 08/25/2021 10:23 AM [facility] Immature Granulocytes 0.3 0 - 1 % 08/25/2021 10:23 AM [facility] Neutrophil Absolute 4.72 2.01 - 7.14 x10E9/L 08/25/2021 10:23 AM [facility] Lymphocytes Absolute 1.76 1.07 - 3.94 x10E9/L 08/25/2021 10:23 AM [facility] Monocytes Absolute 0.84 0.26 - 1.07 x10E9/L 08/25/2021 10:23 AM [facility] Eosinophils Absolute 0.25 0 - 0.47 x10E9/L 08/25/2021 10:23 AM [facility] Basophils Absolute 0.03 0 - 0.08 x10E9/L 08/25/2021 10:23 AM [facility] Immature Granulocytes Absolute 0.02 0.00 - 0.06 x10E9/L 08/25/2021 10:23 AM [facility] nRBC Auto 0 /100 WBC 08/25/2021 10:23 AM [facility] Blood BLOOD SPECIMEN / Unknown Venipuncture / Unknown 08/25/2021 5:37 AM CDT 08/25/2021 9:40 AM CDT us Vinicio Quintanilla MD LAB - HEMATOLOGY ORDERABLES Giselle adams Result [facility] [address] [place] [address] * (ABNORMAL) COMPREHENSIVE METABOLIC PANEL (08/25/2021 5:37 AM CDT) [facility] Glucose 93 70 - 105 mg/dL 08/25/2021 10:43 AM CDT [facility] Sodium 141 136 - 145 mmol/L 08/25/2021 10:43 AM CDT [facility] Potassium 4.9 3.5 - 5.1 mmol/L 08/25/2021 10:43 AM CDT [facility] Chloride 100 98 - 107 mmol/L 08/25/2021 10:43 AM CDT [facility] CO2 23 23 - 31 mmol/L 08/25/2021 10:43 AM CDT [facility] Calcium 10.3 8.4 - 10.4 mg/dL 08/25/2021 10:43 AM CDT [facility] Anion Gap 18 8 - 18 mmol/L 08/25/2021 10:43 AM CDT [facility] BUN 27(H) 8.9 - 20.6 mg/dL 08/25/2021 10:43 AM CDT [facility] Creatinine 0.85 0.72 - 1.25 mg/dL 08/25/2021 10:43 AM CDT [facility] Alkaline Phosphatase 162(H) 40 - 150 U/L 08/25/2021 10:43 AM CDT [facility] ALT 24 0 - 61 U/L 08/25/2021 10:43 AM CDT [facility] AST 17 5 - 34 U/L 08/25/2021 10:43 AM CDT [facility] Protein Total 8.1 6.4 - 8.3 gm/dL 08/25/2021 10:43 AM CDT [facility] Albumin 3.8 3.5 - 5.2 gm/dL 08/25/2021 10:43 AM CDT [facility] Bilirubin Total 0.2 0.2 - 1.2 mg/dL 08/25/2021 10:43 AM CDT [facility] eGFR by CKD-EPI >90 >=90 mL/min/1.7 3 m2 08/25/2021 10:43 AM CDT [facility] Blood BLOOD SPECIMEN / Unknown Venipuncture / Unknown 08/25/2021 5:37 AM CDT 08/25/2021 9:40 AM CDT Narrative [facility] - 08/25/2021 10:43 AM CDT eGFR result was calculated using the updated CKD-EPI Creatinine Equations (2020). Prior to go live 2021 the eGFR was calculated using the MDRD calculation. Please note Reference Range change. us Vinicio Quintanilla MD LAB - CHEMISTRY ORDERABLES Final Result [facility] [address] [place], [place] [phone] documented in this encounter Visit Diagnoses Not on filedocumented in this encounter Care Teams Impregnator Electrolytic Capacitors Relationship Specialty Start Date End Date Pepe Martel MD [address] [place] [id number] PCP - General 08/14/16 documented as of this encounter
--- OUTSIDE RECORDS SUMMARY | 2024-12-28 17:50 | XMS_ITS | Encounter Summary ---
Author Organization [facility] Address [address] [place] [address] Care Team Providers Care Asbestos Brake Lining Finisher Helper Name Role Phone Pepe Martel MD Primary Care Provider [phone] Encounter Details Date Type Department Care Team (Late st Contact Info) Description 12/22/2021 Lab Requisition [facility] [address] [place] [address] Alverto Virgen MD [address] [place] [address] [place] [address] Social History Tobacco Use Types Packs/Day Years [...] - 105 mg/dL 12/22/2021 11:46 AM CDT [facility] Sodium 141 136 - 145 mmol/L 12/22/2021 11:46 AM CDT [facility] Potassium 5.1 3.5 - 5.1 mmol/L 12/22/2021 11:46 AM CDT [facility] Chloride 103 98 - 107 mmol/L 12/22/2021 11:46 AM CDT [facility] CO2 22(L) 23 - 31 mmol/L 12/22/2021 11:46 AM CDT [facility] Calcium 10.1 8.4 - 10.4 mg/dL 12/22/2021 11:46 AM CDT [facility] Anion Gap 16 8 - 18 mmol/L 12/22/2021 11:46 AM CDT [facility] BUN 31(H) 8.9 - 20.6 mg/dL 12/22/2021 11:46 AM CDT [facility] Creatinine 1.06 0.72 - 1.25 mg/dL 12/22/2021 11:46 AM CDT [facility] Alkaline Phosphatase 129 40 - 150 U/L 12/22/2021 11:46 AM CDT [facility] ALT 16 0 - 61 U/L 12/22/2021 11:46 AM CDT [facility] AST 14 5 - 34 U/L 12/22/2021 11:46 AM CDT [facility] Protein Total 7.7 6.4 - 8.3 gm/dL 12/22/2021 11:46 AM CDT [facility] Albumin 3.7 3.5 - 5.2 gm/dL 12/22/2021 11:46 AM CDT [facility] Bilirubin Total 0.3 0.2 - 1.2 mg/dL 12/22/2021 11:46 AM CDT [facility] eGFR by CKD-EPI >90 >=90 mL/min/1.7 3 m2 12/22/2021 11:46 AM CDT [facility] Blood BLOOD SPECIMEN / Unknown Venipuncture / Unknown 12/22/2021 3:00 AM CDT 12/22/2021 10:37 AM CDT us Alverto Virgen MD LAB - CHEMISTRY ORDERABLE S Final Result Performing Organization Address City/State/[facility] Co de Phone Number [facility] [address] [place] [address] documented in this encounter Visit Diagnoses Not on filedocumented in this encounter Care Teams Asbestos Brake Lining Finisher Helper Relationship Specialty Start Date End Date Pepe Martel MD [address] [place] [id number] PCP - General 08/14/16 documented as of this encounter
--- OUTSIDE RECORDS SUMMARY | 2024-12-28 17:50 | XMS_ITS | Encounter Summary ---
Author Organization [facility] Address [address] [facility] [place] [address] Care Team Providers Care Armament Mechanic Name Role Phone Pepe Martel MD Primary Care Provider [phone] Encounter Details Date Type Department Care Team (Late st Contact Info) Description 12/15/2021 Lab Requisition [facility] [address] [place] [address] Alverto Virgen MD [address] [place] [address] [place] [address] Social History Tobacco Use Types Packs/Day Years [...] CBC WITH DIFFERENTIAL (12/15/2021 3:20 AM CDT) [facility] WBC 7.1 4.4 - 10.7 x10E9/L 12/15/2021 10:43 AM CDT [facility] WBC Corrected 12/15/2021 10:43 AM CDT [facility] RBC 4.09 3.80 - 5.40 x10E12/L 12/15/2021 10:43 AM CDT [facility] Hemoglobin 11.0(L) 12.0 - 17.6 gm/dL 12/15/2021 10:43 AM CDT [facility] Hematocrit 35.7 35.2 - 51.7 % 12/15/2021 10:43 AM CDT [facility] MCV 87.3 80.7 - 98.3 fl 12/15/2021 10:43 AM CDT [facility] MCH 26.9 26.7 - 34.0 pg 12/15/2021 10:43 AM CDT [facility] MCHC 30.8 30.8 - 35.9 gm/dL 12/15/2021 10:43 AM [facility] Platelet Count 457(H) 153 - 416 x10E9/L 12/15/2021 10:43 AM [facility] RDW-CV 13.2 12.1 - 14.9 % 12/15/2021 10:43 AM [facility] MPV 10.1 9.4 - 12.9 fl 12/15/2021 10:43 AM [facility] Neutrophils % 57.1 44.0 - 73.0 % 12/15/2021 10:43 AM [facility] Lymphocytes % 27.2 20.0 - 43.0 % 12/15/2021 10:43 AM [facility] Monocytes % 11.5 5.0 - 13.0 % 12/15/2021 10:43 AM [facility] Eosinophils % 3.5 0.0 - 6.0 % 12/15/2021 10:43 AM [facility] Basophils % 0.4 0.0 - 2.0 % 12/15/2021 10:43 AM [facility] Immature Granulocytes 0.3 0 - 1 % 12/15/2021 10:43 AM [facility] Neutrophil Absolute 4.02 2.01 - 7.14 x10E9/L 12/15/2021 10:43 AM [facility] Lymphocytes Absolute 1.92 1.07 - 3.94 x10E9/L 12/15/2021 10:43 AM [facility] Monocytes Absolute 0.81 0.26 - 1.07 x10E9/L 12/15/2021 10:43 AM [facility] Eosinophils Absolute 0.25 0 - 0.47 x10E9/L 12/15/2021 10:43 AM [facility] Basophils Absolute 0.03 0 - 0.08 x10E9/L 12/15/2021 10:43 AM [facility] Immature Granulocytes Absolute 0.02 0.00 - 0.06 x10E9/L 12/15/2021 10:43 AM [facility] nRBC Auto 0 /100 WBC 12/15/2021 10:43 AM [facility] Blood BLOOD SPECIMEN / Unknown Venipuncture / Unknown 12/15/2021 3:20 AM CDT 12/15/2021 8:21 AM CDT us Alverto Virgen MD LAB - HEMATOLOGY ORDERABL ES Final Result [facility] [address] [place] [address] * (ABNORMAL) COMPREHENSIVE METABOLIC PANEL (12/15/2021 3:20 AM CDT) [facility] Glucose 93 70 - 105 mg/dL 12/15/2021 11:07 AM CDT [facility] Sodium 140 136 - 145 mmol/L 12/15/2021 11:07 AM [facility] Potassium 5.3(H) 3.5 - 5.1 mmol/L 12/15/2021 11:[facility] Chloride 101 98 - 107 mmol/L 12/15/2021 11:[facility] CO2 25 23 - 31 mmol/L 12/15/2021 11:07 AM CDT [facility] Calcium 10.0 8.4 - 10.4 mg/dL 12/15/2021 11:07 AM CDT [facility] Anion Gap 14 8 - 18 mmol/L 12/15/2021 11:07 AM CDT [facility] BUN 30(H) 8.9 - 20.6 mg/dL 12/15/2021 11:07 AM [facility] Creatinine 0.99 0.72 - 1.25 mg/dL 12/15/2021 11:07 [facility] Alkaline Phosphatase 131 40 - 150 U/L 12/15/2021 11:07 AM CDT [facility] ALT 18 0 - 61 U/L 12/15/2021 11:07 AM CDT [facility] AST 12 5 - 34 U/L 12/15/2021 11:07 AM CDT [facility] Protein Total 7.6 6.4 - 8.3 gm/dL 12/15/2021 11:07 AM CDT [facility] Albumin 3.7 3.5 - 5.2 gm/dL 12/15/2021 11:07 AM [facility] Bilirubin Total 0.3 0.2 - 1.2 mg/dL 12/15/2021 11:07 AM CDT [facility] eGFR by CKD-EPI >90 >=90 mL/min/1.7 3 m2 12/15/2021 11:07 AM CDT [facility] Blood BLOOD SPECIMEN / Unknown Venipuncture / Unknown 12/15/2021 3:20 AM CDT 12/15/2021 8:21 AM CDT us Alverto Virgen MD LAB - CHEMISTRY ORDERABLE S Final Result [facility] [address] [place] [address] documented in this encounter Visit Diagnoses Not on filedocumented in this encounter Care Teams Armament Mechanic Relationship Specialty Start Date End Date Pepe Martel MD [address] [place] [id number] PCP - General 08/14/16 documented as of this encounter
--- OUTSIDE RECORDS SUMMARY | 2024-12-28 17:50 | XMS_ITS | Encounter Summary ---
Author Organization [facility] Address [address] [facility] [place] [address] Care Team Providers Care Substance Abuse Technician Name Role Phone Pepe Martel MD Primary Care Provider [phone] Encounter Details Date Type Department Care Team (Late st Contact Info) Description 10/20/2021 Lab Requisition [facility] [address] [place] [address] [place] [address] [place] [address] Social History Tobacco Use Types Packs/Day Years [...] - 10.7 x10E9/L 10/20/2021 9:28 AM CDT [facility] WBC Corrected 10/20/2021 9:28 AM CDT [...] 30.8 - 35.9 gm/dL 10/20/2021 9:28 AM [facility] Platelet Count 377 153 - 416 x10E9/L 10/20/2021 9:28 AM [facility] RDW-CV 13.7 12.1 - 14.9 % 10/20/2021 9:28 AM [facility] MPV 10.5 9.4 - 12.9 fl 10/20/2021 9:28 AM [facility] Neutrophils % 60.5 44.0 - 73.0 % 10/20/2021 9:28 AM [facility] Lymphocytes % 27.2 20.0 - 43.0 % 10/20/2021 9:28 AM [facility] Monocytes % 8.9 5.0 - 13.0 % 10/20/2021 9:28 AM [facility] Eosinophils % 2.9 0.0 - 6.0 % 10/20/2021 9:28 AM [facility] Basophils % 0.4 0.0 - 2.0 % 10/20/2021 9:28 AM [facility] Immature Granulocytes 0.1 0 - 1 % 10/20/2021 9:28 AM [facility] Neutrophil Absolute 5.05 2.01 - 7.14 x10E9/L 10/20/2021 9:28 AM [facility] Lymphocytes Absolute 2.27 1.07 - 3.94 x10E9/L 10/20/2021 9:28 AM [facility] Monocytes Absolute 0.74 0.26 - 1.07 x10E9/L 10/20/2021 9:28 AM [facility] Eosinophils Absolute 0.24 0 - 0.47 x10E9/L 10/20/2021 9:28 AM [facility] Basophils Absolute 0.03 0 - 0.08 x10E9/L 10/20/2021 9:28 AM [facility] Immature Granulocytes Absolute 0.01 0.00 - 0.06 x10E9/L 10/20/2021 9:28 AM [facility] nRBC Auto 0 /100 WBC 10/20/2021 9:28 AM [facility] Blood BLOOD SPECIMEN / Unknown Venipuncture / Unknown 10/20/2021 3:35 AM CDT 10/20/2021 8:48 AM CDT us Vinicio Quintanilla MD LAB - HEMATOLOGY ORDERABLES Giselle adams Result [facility] [address] [place] [address] * (ABNORMAL) COMPREHENSIVE METABOLIC PANEL (10/20/2021 3:35 AM CDT) [facility] Glucose 93 70 - 105 mg/dL 10/20/2021 9:55 AM CDT [facility] Sodium 143 136 - 145 mmol/L 10/20/2021 9:55 AM CDT [facility] Potassium 4.6 3.5 - 5.1 mmol/L 10/20/2021 9:55 AM CDT [facility] Chloride 105 98 - 107 mmol/L 10/20/2021 9:55 AM CDT [facility] CO2 25 23 - 31 mmol/L 10/20/2021 9:55 AM CDT [facility] Calcium 10.7(H) 8.4 - 10.4 mg/dL 10/20/2021 9:55 AM CDT [facility] Anion Gap 13 8 - 18 mmol/L 10/20/2021 9:55 AM CDT [facility] BUN 30(H) 8.9 - 20.6 mg/dL 10/20/2021 9:55 AM CDT [facility] Creatinine 1.07 0.72 - 1.25 mg/dL 10/20/2021 9:55 AM CDT [facility] Alkaline Phosphatase 156(H) 40 - 150 U/L 10/20/2021 9:55 AM CDT [facility] ALT 20 0 - 61 U/L 10/20/2021 9:55 AM CDT [facility] AST 12 5 - 34 U/L 10/20/2021 9:55 AM CDT [facility] Protein Total 7.9 6.4 - 8.3 gm/dL 10/20/2021 9:55 AM CDT [facility] Albumin 3.9 3.5 - 5.2 gm/dL 10/20/2021 9:55 AM CDT [facility] Bilirubin Total 0.3 0.2 - 1.2 mg/dL 10/20/2021 9:55 AM CDT [facility] eGFR by CKD-EPI >90 >=90 mL/min/1.7 3 m2 10/20/2021 9:55 AM CDT [facility] Blood BLOOD SPECIMEN / Unknown Venipuncture / Unknown 10/20/2021 3:35 AM CDT 10/20/2021 8:48 AM CDT us Vinicio Quintanilla MD LAB - CHEMISTRY ORDERABLES Final Result [facility] [address] [place] [address] documented in this encounter Visit Diagnoses Not on filedocumented in this encounter Care Teams Substance Abuse Technician Relationship Specialty Start Date End Date Pepe Martel MD [address] [place] [address] [address] [place] [address] PCP - General 08/14/16 documented as of this encounter
--- OUTSIDE RECORDS SUMMARY | 2024-12-28 17:50 | XMS_ITS | Encounter Summary ---
Author Organization [facility] Address [address] [place] [address] Care Team Providers Care Automatic Lathe Setter Name Role Phone Pepe Martel MD Primary Care Provider [phone] Encounter Details Date Type Department Care Team (Late st Contact Info) Description 03/21/2021 Lab Requisition [facility] [address] [place] [address] Fredy Sue [address] [place] [address] Social History Tobacco Use Types Packs/Day [...] COMPREHENSIVE METABOLIC PANEL (03/21/2021 3:00 AM CDT) Pathologist [facility] [place] Glucose 111(H) 70 - 105 mg/dL 03/21/2021 9:38 AM CDT [facility] Sodium 137 136 - 145 mmol/L 03/21/2021 9:38 AM CDT [facility] Potassium 5.4(H) 3.5 - 5.1 mmol/L 03/21/2021 9:38 AM CDT [facility] Chloride 100 98 - 107 mmol/L 03/21/2021 9:38 AM CDT [facility] CO2 21(L) 23 - 31 mmol/L 03/21/2021 9:38 AM CDT [facility] Calcium 8.8 8.4 - 10.4 mg/dL 03/21/2021 9:38 AM CDT [facility] Anion Gap 16 8 - 18 mmol/L 03/21/2021 9:38 AM CDT [facility] BUN 31(H) 8.9 - 20.6 mg/dL 03/21/2021 9:38 AM CDT [facility] Creatinine 1.26(H) 0.72 - 1.25 mg/dL 03/21/2021 9:38 AM CDT [facility] Alkaline Phosphatase 196(H) 40 - 150 U/L 03/21/2021 9:38 AM CDT [facility] ALT 45 0 - 61 U/L 03/21/2021 9:38 AM CDT [facility] AST 53(H) 5 - 34 U/L 03/21/2021 9:38 AM CDT [facility] Protein Total 8.7(H) 6.4 - 8.3 gm/dL 03/21/2021 9:38 AM CDT [facility] Albumin 3.1(L) 3.5 - 5.2 gm/dL 03/21/2021 9:38 AM CDT [facility] Bilirubin Total 0.3 0.2 - 1.2 mg/dL 03/21/2021 9:38 AM CDT [facility] eGFR by MDRD >60 >60 mL/min/1.7 3m2 03/21/2021 9:38 AM CDT [facility] eGFR by MDRD >60 >60 mL/min/1.7 3m2 03/21/2021 9:38 AM CDT [facility] Blood BLOOD SPECIMEN / Unknown Venipuncture / Unknown 03/21/2021 3:00 AM CDT 03/21/2021 9:05 AM CDT Fredy uSe LAB - CHEMISTRY ORDERABLES Final Result Performing Organization Address City/State/[facility] Co de Phone Number [facility] [address] [place], [place] [phone] documented in this encounter Visit Diagnoses Not on filedocumented in this encounter Care Teams Automatic Lathe Setter Relationship Specialty Start Date End Date Pepe Martel MD [address] [facility] [address] [place] [address] PCP - General 08/14/16 documented as of this encounter
--- OUTSIDE RECORDS SUMMARY | 2024-12-28 17:50 | XMS_ITS | Encounter Summary ---
Author Organization [facility] Address [address] [facility] [place] [address] Care Team Providers Care Police Manager Name Role Phone Pepe Martel MD Primary Care Provider [phone] Encounter Details Date Type Department Care Team (Late st Contact Info) Description 03/15/2021 Lab Requisition [facility] [address] [place] [id number] Unknown, Provider Social History Tobacco Use Types [...] CBC WITH DIFFERENTIAL (03/15/2021 3:00 AM CDT) [facility] WBC 16.3(H) 4.4 - 10.7 x10E9/L 03/15/2021 10:40 AM CDT [facility] WBC Corrected 03/15/2021 10:40 AM CDT [facility] RBC 3.75(L) 3.80 - 5.40 x10E12/L 03/15/2021 10:40 AM CDT [facility] Hemoglobin 10.2(L) 12.0 - 17.6 gm/dL 03/15/2021 10:40 AM CDT [facility] Hematocrit 33.6(L) 35.2 - 51.7 % 03/15/2021 10:40 AM CDT [facility] MCV 89.6 80.7 - 98.3 fl 03/15/2021 10:40 AM CDT [facility] MCH 27.2 26.7 - 34.0 pg 03/15/2021 10:40 AM CDT [facility] MCHC 30.4(L) 30.8 - 35.9 gm/dL 03/15/2021 10:40 AM CDT [facility] Platelet Count 498(H) 153 - 416 x10E9/L 03/15/2021 10:40 AM [facility] RDW-CV 13.6 12.1 - 14.9 % 03/15/2021 10:40 AM [facility] MPV 10.8 9.4 - 12.9 fl 03/15/2021 10:40 AM [facility] Neutrophils % 81.1(H) 44.0 - 73.0 % 03/15/2021 10:40 AM [facility] Lymphocytes % 8.2(L) 20.0 - 43.0 % 03/15/2021 10:40 AM [facility] Monocytes % 7.3 5.0 - 13.0 % 03/15/2021 10:40 AM [facility] Eosinophils % 2.0 0.0 - 6.0 % 03/15/2021 10:40 AM [facility] Basophils % 0.2 0.0 - 2.0 % 03/15/2021 10:40 AM [facility] Immature Granulocytes 1.2(H) 0 - 1 % 03/15/2021 10:40 AM [facility] Neutrophil Absolute 13.19(H) 2.01 - 7.14 x10E9/L 03/15/2021 10:40 AM [facility] Lymphocytes Absolute 1.33 1.07 - 3.94 x10E9/L 03/15/2021 10:40 AM [facility] Monocytes Absolute 1.18(H) 0.26 - 1.07 x10E9/L 03/15/2021 10:40 AM [facility] Eosinophils Absolute 0.33 0 - 0.47 x10E9/L 03/15/2021 10:40 AM [facility] Basophils Absolute 0.04 0 - 0.08 x10E9/L 03/15/2021 10:40 AM [facility] Immature Granulocytes Absolute 0.19(H) 0.00 - 0.06 x10E9/L 03/15/2021 10:40 AM [facility] nRBC Auto 0 /100 WBC 03/15/2021 10:40 AM [facility] Blood BLOOD SPECIMEN / Unknown Venipuncture / Unknown 03/15/2021 3:00 AM CDT 03/15/2021 9:41 AM CDT us Provider Unknown LAB - HEMATOLOGY ORDERABLES Fin al Result [facility] [address] [place] [address] * (ABNORMAL) COMPREHENSIVE METABOLIC PANEL (03/15/2021 3:00 AM CDT) Glucose 128(H) 70 - 105 mg/dL 03/15/2021 10:22 AM CDT [facility] Sodium 137 136 - 145 mmol/L 03/15/2021 10:22 AM CDT [facility] Potassium 5.3(H) 3.5 - 5.1 mmol/L 03/15/2021 10:22 AM CDT [facility] Chloride 103 98 - 107 mmol/L 03/15/2021 10:22 AM CDT [facility] CO2 20(L) 23 - 31 mmol/L 03/15/2021 10:22 AM CDT [facility] Calcium 8.5 8.4 - 10.4 mg/dL 03/15/2021 10:22 AM CDT [facility] Anion Gap 14 8 - 18 mmol/L 03/15/2021 10:22 AM CDT [facility] BUN 36(H) 8.9 - 20.6 mg/dL 03/15/2021 10:22 AM CDT [facility] Creatinine 1.37(H) 0.72 - 1.25 mg/dL 03/15/2021 10:22 AM CDT [facility] Alkaline Phosphatase 263(H) 40 - 150 U/L 03/15/2021 10:22 AM CDT [facility] ALT 40 0 - 61 U/L 03/15/2021 10:22 AM CDT [facility] AST 43(H) 5 - 34 U/L 03/15/2021 10:22 AM CDT [facility] Protein Total 8.1 6.4 - 8.3 gm/dL 03/15/2021 10:22 AM CDT [facility] Albumin 3.0(L) 3.5 - 5.2 gm/dL 03/15/2021 10:22 AM CDT [facility] Bilirubin Total 0.4 0.2 - 1.2 mg/dL 03/15/2021 10:22 AM CDT [facility] eGFR by MDRD 59(L) >60 mL/min/1.7 3m2 03/15/2021 10:22 AM CDT [facility] eGFR by MDRD >60 >60 mL/min/1.7 3m2 03/15/2021 10:22 AM CDT [facility] Blood BLOOD SPECIMEN / Unknown Venipuncture / Unknown 03/15/2021 3:00 AM CDT 03/15/2021 9:41 AM CDT us Provider Unknown LAB - CHEMISTRY ORDERABLES Giselle l Result Performing Organization Address City/State/[facility] Co de Phone Number [facility] [address] [place] [address] documented in this encounter Visit Diagnoses Not on filedocumented in this encounter Care Teams Police Manager Relationship Specialty Start Date End Date Pepe Martel MD [address] [place] [address] [address] [place] [address] PCP - General 08/14/16 documented as of this encounter
--- OUTSIDE RECORDS SUMMARY | 2024-12-28 17:50 | XMS_ITS | Encounter Summary ---
Author Organization [facility] Address [address] [place] [address] Care Team Providers Care Energy Director Name Role Phone Pepe Martel MD Primary Care Provider [phone] Encounter Details Date Type Department Care Team (Late st Contact Info) Description 04/21/2021 Lab Requisition [facility] [address] [place] [address] Lamberto De La Cruz MD [address] [facility] [address] [place] [address] Social History Tobacco Use Types [...] W AUTO DIFFERENTIAL Routine 04/21/2021 3:30 AM ELECTRIC SPOT WELDER COMPREHENSIVE METABOLIC PANEL Routine 04/21/2021 3:30 AM ELECTRIC SPOT WELDER documented in this encounter Results * (ABNORMAL) COMPREHENSIVE METABOLIC PANEL (04/21/2021 3:30 AM ELECTRIC SPOT WELDER) [facility] Glucose 89 70 - 105 mg/dL 04/21/2021 12:54 PM ELECTRIC SPOT WELDER [facility] Sodium 136 136 - 145 mmol/L 04/21/2021 12:54 PM ELECTRIC SPOT WELDER [facility] Potassium 4.5 3.5 - 5.1 mmol/L 04/21/2021 12:54 PM ELECTRIC SPOT WELDER [facility] Chloride 102 98 - 107 mmol/L 04/21/2021 12:54 PM ELECTRIC SPOT WELDER [facility] CO2 21(L) 23 - 31 mmol/L 04/21/2021 12:54 PM ELECTRIC SPOT WELDER [facility] Calcium 9.7 8.4 - 10.4 mg/dL 04/21/2021 12:54 PM ELECTRIC SPOT WELDER [facility] Anion Gap 13 8 - 18 mmol/L 04/21/2021 12:54 PM ELECTRIC SPOT WELDER [facility] BUN 28(H) 8.9 - 20.6 mg/dL 04/21/2021 12:54 PM ELECTRIC SPOT WELDER [facility] Creatinine 0.86 0.72 - 1.25 mg/dL 04/21/2021 12:54 PM ELECTRIC SPOT WELDER [facility] Alkaline Phosphatase 81 40 - 150 U/L 04/21/2021 12:54 PM ELECTRIC SPOT WELDER [facility] ALT 24 0 - 61 U/L 04/21/2021 12:54 PM ELECTRIC SPOT WELDER [facility] AST 23 5 - 34 U/L 04/21/2021 12:54 PM [facility] Protein Total 7.7 6.4 - 8.3 gm/dL 04/21/2021 12:54 PM [facility] Albumin 3.7 3.5 - 5.2 gm/dL 04/21/2021 12:54 PM [facility] Bilirubin Total 0.2 0.2 - 1.2 mg/dL 04/21/2021 12:54 PM [facility] eGFR by MDRD >60 >60 mL/min/1.7 3m2 04/21/2021 12:54 PM [facility] eGFR by MDRD >60 >60 mL/min/1.7 3m2 04/21/2021 12:54 PM [facility] Blood BLOOD SPECIMEN / Unknown Venipuncture / Unknown 04/21/2021 3:30 AM ELECTRIC SPOT WELDER 04/21/2021 11:53 AM ELECTRIC SPOT WELDER us Lamberto De La Cruz MD LAB - CHEMISTRY ORDERABLES Final Result Performing Organization Address [facility]/State/[facility] Co de Phone Number [facility] [address] [place] [address] * (ABNORMAL) CBC WITH DIFFERENTIAL (04/21/2021 3:30 AM ELECTRIC SPOT WELDER) [facility] WBC 6.7 4.4 - 10.7 x10E9/L 04/21/2021 11:59 AM ELECTRIC SPOT WELDER [facility] WBC Corrected 04/21/2021 11:59 AM [facility] RBC 3.95 3.80 - 5.40 x10E12/L 04/21/2021 11:59 AM [facility] Hemoglobin 11.1(L) 12.0 - 17.6 gm/dL 04/21/2021 11:59 AM [facility] Hematocrit 35.6 35.2 - 51.7 % 04/21/2021 11:59 AM [facility] MCV 90.1 80.7 - 98.3 fl 04/21/2021 11:59 AM [facility] MCH 28.1 26.7 - 34.0 pg 04/21/2021 11:59 AM [facility] MCHC 31.2 30.8 - 35.9 gm/dL 04/21/2021 11:59 AM [facility] Platelet Count 367 153 - 416 x10E9/L 04/21/2021 11:59 AM [facility] RDW-CV 14.4 12.1 - 14.9 % 04/21/2021 11:59 AM [facility] MPV 10.3 9.4 - 12.9 fl 04/21/2021 11:59 AM [facility] Neutrophils % 58.6 44.0 - 73.0 % 04/21/2021 11:59 AM [facility] Lymphocytes % 19.7(L) 20.0 - 43.0 % 04/21/2021 11:59 AM [facility] Monocytes % 16.8(H) 5.0 - 13.0 % 04/21/2021 11:59 AM [facility] Eosinophils % 4.1 0.0 - 6.0 % 04/21/2021 11:59 AM [facility] Basophils % 0.6 0.0 - 2.0 % 04/21/2021 11:59 AM [facility] Immature Granulocytes 0.2 0 - 1 % 04/21/2021 11:59 AM [facility] Neutrophil Absolute 3.91 2.01 - 7.14 x10E9/L 04/21/2021 11:59 AM [facility] Lymphocytes Absolute 1.31 1.07 - 3.94 x10E9/L 04/21/2021 11:59 AM [facility] Monocytes Absolute 1.12(H) 0.26 - 1.07 x10E9/L 04/21/2021 11:59 AM [facility] Eosinophils Absolute 0.27 0 - 0.47 x10E9/L 04/21/2021 11:59 AM [facility] Basophils Absolute 0.04 0 - 0.08 x10E9/L 04/21/2021 11:59 AM [facility] Immature Granulocytes Absolute 0.01 0.00 - 0.06 x10E9/L 04/21/2021 11:59 AM ELECTRIC SPOT WELDER [facility] nRBC Auto 0 /100 WBC 04/21/2021 11:59 AM ELECTRIC SPOT WELDER [facility] Blood BLOOD SPECIMEN / Unknown Venipuncture / Unknown 04/21/2021 3:30 AM ELECTRIC SPOT WELDER 04/21/2021 11:53 AM ELECTRIC SPOT WELDER us Lamberto De La Cruz MD LAB - HEMATOLOGY ORDERABLES Giselle adams Result Performing Organization Address City/State/[facility] Co de Phone Number [facility] [address] [place] [address] documented in this encounter Visit Diagnoses Not on filedocumented in this encounter Care Teams Energy Director Relationship Specialty Start Date End Date Pepe Martel MD [address] [place] [id number] PCP - General 08/14/16 documented as of this encounter
--- OUTSIDE RECORDS SUMMARY | 2024-12-28 17:50 | XMS_ITS | Encounter Summary ---
Author Organization [facility] Address [address] [facility] [place] [address] Care Team Providers Care Fraternity House Cook Name Role Phone Pepe Martel MD Primary Care Provider [phone] Encounter Details Date Type Department Care Team (Late st Contact Info) Description 12/12/2021 Lab Requisition [facility] [address] [place], [place] [id number] [place] [address] [place] [address] Social History Tobacco Use Types [...] PANEL (CALCIUM TOTAL) (12/12/2021 4:00 AM CDT) [facility] Glucose 87 70 - 105 mg/dL 12/12/2021 10:10 AM T [facility] Sodium 139 136 - 145 mmol/L 12/12/2021 10:10 AM CDT [facility] Potassium 5.2(H) 3.5 - 5.1 mmol/L 12/12/2021 10:10 AM CDT [facility] Chloride 99 98 - 107 mmol/L 12/12/2021 10:10 AM CDT [facility] CO2 26 23 - 31 mmol/L 12/12/2021 10:10 AM CDT [facility] Calcium 10.2 8.4 - 10.4 mg/dL 12/12/2021 10:10 AM T [facility] Anion Gap 14 8 - 18 mmol/L 12/12/2021 10:10 AM CDT [facility] BUN 30(H) 8.9 - 20.6 mg/dL 12/12/2021 10:10 AM CDT [facility] Creatinine 1.07 0.72 - 1.25 mg/dL 12/12/2021 10:10 AM CDT [facility] eGFR by CKD-EPI >90 >=90 mL/min/1.7 3 m2 12/12/2021 10:10 AM CDT [facility] Blood BLOOD SPECIMEN / Unknown Venipuncture / Unknown 12/12/2021 4:00 AM CDT 12/12/2021 8:11 AM CDT Braden Hernandez MD LAB - CHEMISTRY ORDERABLES Fi nal Result Performing Organization Address City/State/[facility] Co de Phone Number [facility] [address] [place] [address] documented in this encounter Visit Diagnoses Not on filedocumented in this encounter Care Teams Fraternity House Cook Relationship Specialty Start Date End Date Pepe Martel MD [address] [place] [address] 3 [place] [address] PCP - General 08/14/16 documented as of this encounter
--- OUTSIDE RECORDS SUMMARY | 2024-12-28 17:50 | XMS_ITS | Encounter Summary ---
Author Organization [facility] Address [address] [place] [address] Care Team Providers Care Diagnostic Radiologist Name Role Phone Pepe Martel MD Primary Care Provider [phone] Encounter Details Date Type Department Care Team (Late st Contact Info) Description 04/18/2021 Lab Requisition [facility] [address] [place] [address] Davon Laws MD [address] [place] [address] Social History Tobacco Use Types [...] VANCOMYCIN LEVEL TROUGH STAT 04/18/2021 4:03 AM SOLE LAYER HAND documented in this encounter Results * VANCOMYCIN LEVEL TROUGH (04/18/2021 4:03 AM SOLE LAYER HAND) Vancomycin Trough 16.2 10.0 - 20.0 ug/mL 04/18/2021 9:58 AM SOLE LAYER HAND [facility] Blood BLOOD SPECIMEN / Unknown Venipuncture / Unknown 04/18/2021 4:03 AM SOLE LAYER HAND 04/18/2021 8:39 AM SOLE LAYER HAND Davon Laws MD LAB - CHEMISTRY ORDERABLES Final Result Performing Organization Address City/State/[facility] Co de Phone Number [facility] [address] [place], [place] [phone] documented in this encounter Visit Diagnoses Not on filedocumented in this encounter Care Teams Diagnostic Radiologist Relationship Specialty Start Date End Date Pepe Martel MD [address] [place] [address] 3 [place] [address] PCP - General 08/14/16 documented as of this encounter
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
--- OUTSIDE RECORDS SUMMARY | 2024-12-28 17:50 | XMS_ITS | Clinical Summary ---
Author Organization [facility] Address [address] [place] [address] Care Team Providers Care Planner Scheduler Name Role Phone No, Physician Primary Care Provider [phone] Allergies No known active allergies Surgical History Surgery Date Site/Laterality Comments ENTERIC TUBE INJECTION 02/01/2022 N/A Medical History Medical History Date Comments Hypertension History of anoxic brain injury Social History Tobacco Use Types Packs/Day Years Used Date Smoking Tobacco: Never Assessed Sex and Gender Information Value Date Recorded Sex Assigned at Not on file Legal Sex Male 7:30 PM ATMOSPHERIC DRIER TENDER Gender Identity Not on file Sexual Orientation [...] 11:33 PM CDT Height 170.2 cm (5' 7) 06/01/2016 4:44 AM ATMOSPHERIC DRIER TENDER Body Mass Index 34.53 06/01/2016 4:44 AM ATMOSPHERIC DRIER TENDER Plan of Treatment Health Maintenance Due Date Last Done Comments Depression Screening 1985 Varicella Vaccines (1 of 2 - 13+ 2-dose series) 1998 Hepatitis B Screening 12/30/2003 Regular Well Visit/Exam 18-64 12/30/2003 HPV Vaccines (1 - 3-dose SCD M series) 2012 Influenza Vaccine (#1) 2025 DTaP/Tdap/Td Vaccine (2 - Td or Tdap) 02/15/2031 02/15/2021 Hepatitis C Screening Completed 08/01/2021 Pneumococcal vaccine <65 Aged Out No longer eligible based on patient's age to complete this topic Procedures Procedure Name Priority Date/Time Associated Diagnosis Comments HEPATITIS PANEL, ACUTE Routine 08/01/2021 11:40 AM CDT from Last 3 Months or Most Recently Relevant to Health Maintenance Results * (ABNORMAL) Hepatitis panel, acute (08/01/2021 11:40 AM CDT) Hep A IgM Nonreactive Nonreactive [facility] Comment: Interpretive Data: If Hep A IgM Ab is reported as Equivocal, a new sample should be drawn in two weeks for testing. Current interpretive data was last revised on 19. Hep B core IgM Nonreactive Nonreactive [facility] Comment: Interpretive Data If HepB Core IgM Ab is reported as Equivocal, a new sample should be drawn in two weeks for testing. Current interpretive data was last revised on 19. Hep C Ab Reactive(A) Nonreactive [facility] Comment:Positive for HCV ant ibodies. This may represent current or past HCV infection. Supplemental molecular testing will be automatically performed to determine current infection status in accordance with current CDC screening recommendations. HepBsAg Nonreactive Nonreactive [facility] Blood 08/01/2021 11:4 0 AM CDT 08/01/2021 9:22 PM CDT us Notinfile Unknown LAB MICROBIOLOGY - GENERAL ORD ERABLES Final Result [facility] Department [place] [address] from Last 3 Months or Most Recently Relevant to Health Maintenance Insurance [facility] [place] [address] [place] [address] PLAN Care Teams Planner Scheduler Relationship Specialty Start Date End Date No, Physician PCP - General 11/08/21
--- OUTSIDE RECORDS SUMMARY | 2024-12-28 17:50 | XMS_ITS | Encounter Summary ---
Author Organization [facility] Address [address] [place] [address] Care Team Providers Care Janitorial Tech Name Role Phone Pepe Martel MD Primary Care Provider [phone] Encounter Details Date Type Department Care Team (Late st Contact Info) Description 10/06/2021 Lab Requisition [facility] [address] [place] [address] [place] [address] [place] [address] Social History Tobacco Use Types Packs/Day Years [...] 30.8 - 35.9 gm/dL 10/06/2021 9:27 AM [facility] Platelet Count 444(H) 153 - 416 x10E9/L 10/06/2021 9:27 AM [facility] RDW-CV 14.0 12.1 - 14.9 % 10/06/2021 9:27 AM [facility] MPV 10.8 9.4 - 12.9 fl 10/06/2021 9:27 AM [facility] Neutrophils % 63.7 44.0 - 73.0 % 10/06/2021 9:27 AM [facility] Lymphocytes % 25.1 20.0 - 43.0 % 10/06/2021 9:27 AM [facility] Monocytes % 6.4 5.0 - 13.0 % 10/06/2021 9:27 AM [facility] Eosinophils % 4.3 0.0 - 6.0 % 10/06/2021 9:27 AM [facility] Basophils % 0.4 0.0 - 2.0 % 10/06/2021 9:27 AM [facility] Immature Granulocytes 0.1 0 - 1 % 10/06/2021 9:27 AM [facility] Neutrophil Absolute 4.30 2.01 - 7.14 x10E9/L 10/06/2021 9:27 AM [facility] Lymphocytes Absolute 1.70 1.07 - 3.94 x10E9/L 10/06/2021 9:27 AM [facility] Monocytes Absolute 0.43 0.26 - 1.07 x10E9/L 10/06/2021 9:27 AM [facility] Eosinophils Absolute 0.29 0 - 0.47 x10E9/L 10/06/2021 9:27 AM [facility] Basophils Absolute 0.03 0 - 0.08 x10E9/L 10/06/2021 9:27 AM [facility] Immature Granulocytes Absolute 0.01 0.00 - 0.06 x10E9/L 10/06/2021 9:27 AM [facility] nRBC Auto 0 /100 WBC 10/06/2021 9:27 AM [facility] Blood BLOOD SPECIMEN / Unknown Venipuncture / Unknown 10/06/2021 4:30 AM CDT 10/06/2021 9:21 AM CDT us Vinicio Quintanilla MD LAB - HEMATOLOGY ORDERABLES Giselle adams Result [facility] [address] [place] [address] * (ABNORMAL) COMPREHENSIVE METABOLIC PANEL (10/06/2021 4:30 AM CDT) [facility] Glucose 117(H) 70 - 105 mg/dL 10/06/2021 9:49 AM CDT [facility] Sodium 145 136 - 145 mmol/L 10/06/2021 9:49 AM CDT [facility] Potassium 4.6 3.5 - 5.1 mmol/L 10/06/2021 9:49 AM CDT [facility] Chloride 107 98 - 107 mmol/L 10/06/2021 9:49 AM CDT [facility] CO2 26 23 - 31 mmol/L 10/06/2021 9:49 AM CDT [facility] Calcium 10.6(H) 8.4 - 10.4 mg/dL 10/06/2021 9:49 AM CDT [facility] Anion Gap 12 8 - 18 mmol/L 10/06/2021 9:49 AM CDT [facility] BUN 32(H) 8.9 - 20.6 mg/dL 10/06/2021 9:49 AM CDT [facility] Creatinine 1.05 0.72 - 1.25 mg/dL 10/06/2021 9:49 AM CDT [facility] Alkaline Phosphatase 156(H) 40 - 150 U/L 10/06/2021 9:49 AM CDT [facility] ALT 23 0 - 61 U/L 10/06/2021 9:49 AM CDT [facility] AST 12 5 - 34 U/L 10/06/2021 9:49 AM CDT [facility] Protein Total 7.7 6.4 - 8.3 gm/dL 10/06/2021 9:49 AM CDT [facility] Albumin 3.8 3.5 - 5.2 gm/dL 10/06/2021 9:49 AM CDT [facility] Bilirubin Total 0.2 0.2 - 1.2 mg/dL 10/06/2021 9:49 AM CDT [facility] eGFR by CKD-EPI >90 >=90 mL/min/1.7 3 m2 10/06/2021 9:49 AM CDT [facility] Blood BLOOD SPECIMEN / Unknown Venipuncture / Unknown 10/06/2021 4:30 AM CDT 10/06/2021 9:21 AM CDT us Vinicio Quintanilla MD LAB - CHEMISTRY ORDERABLES Final Result [facility] [address] [place], [place] [id number] documented in this encounter Visit Diagnoses Not on filedocumented in this encounter Care Teams Janitorial Tech Relationship Specialty Start Date End Date Pepe Martel MD [address] [place] [address] [address] [place] [address] PCP - General 08/14/16 documented as of this encounter
--- OUTSIDE RECORDS SUMMARY | 2024-12-28 17:50 | XMS_ITS | Encounter Summary ---
Author Organization [facility] Address [address] [place] [address] Care Team Providers Care Cheesemaker Helper Name Role Phone Pepe Martel MD Primary Care Provider [phone] Encounter Details Date Type Department Care Team (Late st Contact Info) Description 04/10/2021 Lab Requisition [facility] [address] [place] [address] Lamberto De La Cruz MD [address] [facility] [address] [place] [address] Social History Tobacco Use Types [...] W AUTO DIFFERENTIAL STAT 04/10/2021 3:30 AM EQUAL OPPORTUNITY COUNSELOR COMPREHENSIVE METABOLIC PANEL STAT 04/10/2021 3:30 AM EQUAL OPPORTUNITY COUNSELOR documented in this encounter Results * (ABNORMAL) CBC WITH DIFFERENTIAL (04/10/2021 3:30 AM EQUAL OPPORTUNITY COUNSELOR) WBC 6.3 4.4 - 10.7 x10E9/L 04/10/2021 11:34 AM EQUAL OPPORTUNITY COUNSELOR [facility] WBC Corrected 04/10/2021 11:34 AM EQUAL OPPORTUNITY COUNSELOR [facility] RBC 3.77(L) 3.80 - 5.40 x10E12/L 04/10/2021 11:34 AM EQUAL OPPORTUNITY COUNSELOR [facility] Hemoglobin 10.4(L) 12.0 - 17.6 gm/dL 04/10/2021 11:34 AM EQUAL OPPORTUNITY COUNSELOR [facility] Hematocrit 33.7(L) 35.2 - 51.7 % 04/10/2021 11:34 AM EQUAL OPPORTUNITY COUNSELOR [facility] MCV 89.4 80.7 - 98.3 fl 04/10/2021 11:34 AM EQUAL OPPORTUNITY COUNSELOR [facility] MCH 27.6 26.7 - 34.0 pg 04/10/2021 11:34 AM EQUAL OPPORTUNITY COUNSELOR [facility] MCHC 30.9 30.8 - 35.9 gm/dL 04/10/2021 11:34 AM [facility] Platelet Count 475(H) 153 - 416 x10E9/L 04/10/2021 11:34 AM [facility] RDW-CV 14.8 12.1 - 14.9 % 04/10/2021 11:34 AM [facility] MPV 10.1 9.4 - 12.9 fl 04/10/2021 11:34 AM [facility] Neutrophils % 61.3 44.0 - 73.0 % 04/10/2021 11:34 AM [facility] Lymphocytes % 20.3 20.0 - 43.0 % 04/10/2021 11:34 AM [facility] Monocytes % 10.2 5.0 - 13.0 % 04/10/2021 11:34 AM [facility] Eosinophils % 7.2(H) 0.0 - 6.0 % 04/10/2021 11:34 AM [facility] Basophils % 0.8 0.0 - 2.0 % 04/10/2021 11:34 AM [facility] Immature Granulocytes 0.2 0 - 1 % 04/10/2021 11:34 AM [facility] Neutrophil Absolute 3.85 2.01 - 7.14 x10E9/L 04/10/2021 11:34 AM [facility] Lymphocytes Absolute 1.27 1.07 - 3.94 x10E9/L 04/10/2021 11:34 AM [facility] Monocytes Absolute 0.64 0.26 - 1.07 x10E9/L 04/10/2021 11:34 AM [facility] Eosinophils Absolute 0.45 0 - 0.47 x10E9/L 04/10/2021 11:34 AM [facility] Basophils Absolute 0.05 0 - 0.08 x10E9/L 04/10/2021 11:34 AM [facility] Immature Granulocytes Absolute 0.01 0.00 - 0.06 x10E9/L 04/10/2021 11:34 AM [facility] nRBC Auto 0 /100 WBC 04/10/2021 11:34 AM [facility] Blood BLOOD SPECIMEN / Unknown Venipuncture / Unknown 04/10/2021 3:30 AM EQUAL OPPORTUNITY COUNSELOR 04/10/2021 10:12 AM EQUAL OPPORTUNITY COUNSELOR us Lamberto De La Cruz MD LAB - HEMATOLOGY ORDERABLES Giselle bryan Result [facility] [address] [place] [address] * (ABNORMAL) COMPREHENSIVE METABOLIC PANEL (04/10/2021 3:30 AM EQUAL OPPORTUNITY COUNSELOR) Glucose 124(H) 70 - 105 mg/dL 04/10/2021 11:56 AM [facility] Sodium 137 136 - 145 mmol/L 04/10/2021 11:56 AM [facility] Potassium 4.8 3.5 - 5.1 mmol/L 04/10/2021 11:56 AM [facility] Chloride 102 98 - 107 mmol/L 04/10/2021 11:56 AM [facility] CO2 22(L) 23 - 31 mmol/L 04/10/2021 11:56 AM [facility] Calcium 9.1 8.4 - 10.4 mg/dL 04/10/2021 11:56 AM [facility] Anion Gap 13 8 - 18 mmol/L 04/10/2021 11:56 AM [facility] BUN 22(H) 8.9 - 20.6 mg/dL 04/10/2021 11:56 AM [facility] Creatinine 0.80 0.72 - 1.25 mg/dL 04/10/2021 11:56 AM [facility] Alkaline Phosphatase 105 40 - 150 U/L 04/10/2021 11:56 AM [facility] ALT 26 0 - 61 U/L 04/10/2021 11:56 AM [facility] AST 29 5 - 34 U/L 04/10/2021 11:56 AM [facility] Protein Total 7.4 6.4 - 8.3 gm/dL 04/10/2021 11:56 AM [facility] Albumin 3.3(L) 3.5 - 5.2 gm/dL 04/10/2021 11:56 AM [facility] Bilirubin Total 0.4 0.2 - 1.2 mg/dL 04/10/2021 11:56 AM [facility] eGFR by MDRD >60 >60 mL/min/1.7 3m2 04/10/2021 11:56 AM EQUAL OPPORTUNITY COUNSELOR [facility] eGFR by MDRD >60 >60 mL/min/1.7 3m2 04/10/2021 11:56 AM EQUAL OPPORTUNITY COUNSELOR [facility] Blood BLOOD SPECIMEN / Unknown Venipuncture / Unknown 04/10/2021 3:30 AM EQUAL OPPORTUNITY COUNSELOR 04/10/2021 10:12 AM EQUAL OPPORTUNITY COUNSELOR us Lamberto De La Cruz MD LAB - CHEMISTRY ORDERABLES Final Result [facility] [address] [place], [place] [id number] documented in this encounter Visit Diagnoses Not on filedocumented in this encounter Care Teams Cheesemaker Helper Relationship Specialty Start Date End Date Pepe Martel MD [address] [place] [address] [address] [place] [address] PCP - General 08/14/16 documented as of this encounter
--- OUTSIDE RECORDS SUMMARY | 2024-12-28 17:50 | XMS_ITS | Encounter Summary ---
Author Organization [facility] Address [address] [address] Care Team Providers Care Day Care Provider Name Role Phone Pepe Martel MD Primary Care Provider [phone] Encounter Details Date Type Department Care Team (Late st Contact Info) Description 04/21/2021 Lab Requisition [facility] [address] [place] [address] Davon Laws MD [address] [place] [address] Social History Tobacco Use Types [...] VANCOMYCIN LEVEL TROUGH STAT 04/21/2021 3:30 AM FLIGHT/TRANSPORT NURSE documented in this encounter Results * VANCOMYCIN LEVEL TROUGH (04/21/2021 3:30 AM FLIGHT/TRANSPORT NURSE) Vancomycin Trough 19.1 10.0 - 20.0 ug/mL 04/21/2021 11:26 AM FLIGHT/TRANSPORT NURSE [facility] Blood BLOOD SPECIMEN / Unknown Venipuncture / Unknown 04/21/2021 3:30 AM FLIGHT/TRANSPORT NURSE 04/21/2021 10:55 AM FLIGHT/TRANSPORT NURSE Davon Laws MD LAB - CHEMISTRY ORDERABLES Final Result Performing Organization Address City/State/[facility] Co de Phone Number [facility] [address] [place] [address] documented in this encounter Visit Diagnoses Not on filedocumented in this encounter Care Teams Day Care Provider Relationship Specialty Start Date End Date Pepe Martel MD [address] [place] [address] [address] [place] [address] PCP - General 08/14/16 documented as of this encounter
--- OUTSIDE RECORDS SUMMARY | 2024-12-28 17:51 | XMS_ITS | Encounter Summary ---
Author Organization [facility] Address [address] [place] [address] Care Team Providers Care Bank Guard Name Role Phone Pepe Martel MD Primary Care Provider [phone] Encounter Details Date Type Department Care Team (Late st Contact Info) Description 11/06/2021 Lab Requisition [facility] [address] [place] [address] [place] [address] [place] [address] Social History Tobacco Use Types Packs/Day Years [...] 30.8 - 35.9 gm/dL 11/06/2021 8:57 AM [facility] Platelet Count 382 153 - 416 x10E9/L 11/06/2021 8:57 AM [facility] RDW-CV 13.5 12.1 - 14.9 % 11/06/2021 8:57 AM [facility] MPV 10.5 9.4 - 12.9 fl 11/06/2021 8:57 AM [facility] Neutrophils % 67.2 44.0 - 73.0 % 11/06/2021 8:57 AM [facility] Lymphocytes % 20.1 20.0 - 43.0 % 11/06/2021 8:57 AM [facility] Monocytes % 9.4 5.0 - 13.0 % 11/06/2021 8:57 AM [facility] Eosinophils % 2.9 0.0 - 6.0 % 11/06/2021 8:57 AM [facility] Basophils % 0.3 0.0 - 2.0 % 11/06/2021 8:57 AM [facility] Immature Granulocytes 0.1 0 - 1 % 11/06/2021 8:57 AM [facility] Neutrophil Absolute 5.92 2.01 - 7.14 x10E9/L 11/06/2021 8:57 AM [facility] Lymphocytes Absolute 1.77 1.07 - 3.94 x10E9/L 11/06/2021 8:57 AM [facility] Monocytes Absolute 0.83 0.26 - 1.07 x10E9/L 11/06/2021 8:57 AM [facility] Eosinophils Absolute 0.26 0 - 0.47 x10E9/L 11/06/2021 8:57 AM [facility] Basophils Absolute 0.03 0 - 0.08 x10E9/L 11/06/2021 8:57 AM [facility] Immature Granulocytes Absolute 0.01 0.00 - 0.06 x10E9/L 11/06/2021 8:57 AM [facility] nRBC Auto 0 /100 WBC 11/06/2021 8:57 AM [facility] Blood BLOOD SPECIMEN / Unknown Venipuncture / Unknown 11/06/2021 3:25 AM CDT 11/06/2021 8:47 AM CDT us Vinicio Quintanilla MD LAB - HEMATOLOGY ORDERABLES Giselle adams Result [facility] [address] [place] [address] * (ABNORMAL) COMPREHENSIVE METABOLIC PANEL (11/06/2021 3:25 AM CDT) [facility] Glucose 114(H) 70 - 105 mg/dL 11/06/2021 9:16 AM CDT [facility] Sodium 141 136 - 145 mmol/L 11/06/2021 9:16 AM CDT [facility] Potassium 4.3 3.5 - 5.1 mmol/L 11/06/2021 9:16 AM CDT [facility] Chloride 104 98 - 107 mmol/L 11/06/2021 9:16 AM CDT [facility] CO2 23 23 - 31 mmol/L 11/06/2021 9:16 AM CDT [facility] Calcium 10.4 8.4 - 10.4 mg/dL 11/06/2021 9:16 AM CDT [facility] Anion Gap 14 8 - 18 mmol/L 11/06/2021 9:16 AM CDT [facility] BUN 33(H) 8.9 - 20.6 mg/dL 11/06/2021 9:16 AM CDT [facility] Creatinine 1.09 0.72 - 1.25 mg/dL 11/06/2021 9:16 AM CDT [facility] Alkaline Phosphatase 144 40 - 150 U/L 11/06/2021 9:16 AM CDT [facility] ALT 22 0 - 61 U/L 11/06/2021 9:16 AM CDT [facility] AST 13 5 - 34 U/L 11/06/2021 9:16 AM CDT [facility] Protein Total 7.6 6.4 - 8.3 gm/dL 11/06/2021 9:16 AM CDT [facility] Albumin 3.9 3.5 - 5.2 gm/dL 11/06/2021 9:16 AM CDT [facility] Bilirubin Total 0.3 0.2 - 1.2 mg/dL 11/06/2021 9:16 AM CDT [facility] eGFR by CKD-EPI >90 >=90 mL/min/1.7 3 m2 11/06/2021 9:16 AM CDT [facility] Blood BLOOD SPECIMEN / Unknown Venipuncture / Unknown 11/06/2021 3:25 AM CDT 11/06/2021 8:47 AM CDT us Vinicio Quintanilla MD LAB - CHEMISTRY ORDERABLES Final Result Performing Organization Address City/State/[facility] Co de Phone Number [facility] [address] [place] [address] documented in this encounter Visit Diagnoses Not on filedocumented in this encounter Care Teams Bank Guard Relationship Specialty Start Date End Date Pepe Martel MD [address] [place] [id number] PCP - General 08/14/16 documented as of this encounter
--- OUTSIDE RECORDS SUMMARY | 2024-12-28 17:51 | XMS_ITS | Encounter Summary ---
Author Organization [facility] Address [address] [place] [address] Care Team Providers Care [employer] Clerk Name Role Phone Pepe Martel MD Primary Care Provider [phone] Encounter Details Date Type Department Care Team (Late st Contact Info) Description 11/10/2021 Lab Requisition [facility] [address] [place] [address] [place] [address] [place] [address] Social History Tobacco Use Types Packs/Day Years [...] CBC WITH DIFFERENTIAL (11/10/2021 4:30 AM CDT) [facility] WBC 5.3 4.4 - 10.7 x10E9/L 11/10/2021 10:38 AM CDT [facility] WBC Corrected 11/10/2021 10:38 AM CDT [facility] RBC 4.21 3.80 - 5.40 x10E12/L 11/10/2021 10:38 AM CDT [facility] Hemoglobin 11.2(L) 12.0 - 17.6 gm/dL 11/10/2021 10:38 AM CDT [facility] Hematocrit 36.6 35.2 - 51.7 % 11/10/2021 10:38 AM CDT [facility] MCV 86.9 80.7 - 98.3 fl 11/10/2021 10:38 AM CDT [facility] MCH 26.6(L) 26.7 - 34.0 pg 11/10/2021 10:38 AM CDT [facility] MCHC 30.6(L) 30.8 - 35.9 gm/dL 11/10/2021 10:38 AM [facility] Platelet Count 333 153 - 416 x10E9/L 11/10/2021 10:38 AM [facility] RDW-CV 13.4 12.1 - 14.9 % 11/10/2021 10:38 AM [facility] MPV 10.5 9.4 - 12.9 fl 11/10/2021 10:38 AM [facility] Neutrophils % 54.2 44.0 - 73.0 % 11/10/2021 10:38 AM [facility] Lymphocytes % 24.4 20.0 - 43.0 % 11/10/2021 10:38 AM [facility] Monocytes % 16.1(H) 5.0 - 13.0 % 11/10/2021 10:38 AM [facility] Eosinophils % 4.7 0.0 - 6.0 % 11/10/2021 10:38 AM [facility] Basophils % 0.4 0.0 - 2.0 % 11/10/2021 10:38 AM [facility] Immature Granulocytes 0.2 0 - 1 % 11/10/2021 10:38 AM [facility] Neutrophil Absolute 2.86 2.01 - 7.14 x10E9/L 11/10/2021 10:38 AM [facility] Lymphocytes Absolute 1.29 1.07 - 3.94 x10E9/L 11/10/2021 10:38 AM [facility] Monocytes Absolute 0.85 0.26 - 1.07 x10E9/L 11/10/2021 10:38 AM [facility] Eosinophils Absolute 0.25 0 - 0.47 x10E9/L 11/10/2021 10:38 AM [facility] Basophils Absolute 0.02 0 - 0.08 x10E9/L 11/10/2021 10:38 AM [facility] Immature Granulocytes Absolute 0.01 0.00 - 0.06 x10E9/L 11/10/2021 10:38 AM [facility] nRBC Auto 0 /100 WBC 11/10/2021 10:38 AM [facility] Blood BLOOD SPECIMEN / Unknown Venipuncture / Unknown 11/10/2021 4:30 AM CDT 11/10/2021 8:51 AM CDT us Vinicio Quintanilla MD LAB - HEMATOLOGY ORDERABLES Giselle adams Result [facility] [address] [place] [address] * (ABNORMAL) COMPREHENSIVE METABOLIC PANEL (11/10/2021 4:30 AM CDT) [facility] Glucose 96 70 - 105 mg/dL 11/10/2021 11:05 AM CDT [facility] Sodium 138 136 - 145 mmol/L 11/10/2021 11:05 AM [facility] Potassium 4.7 3.5 - 5.1 mmol/L 11/10/2021 11:05 AM [facility] Chloride 104 98 - 107 mmol/L 11/10/2021 11:05 AM [facility] CO2 23 23 - 31 mmol/L 11/10/2021 11:05 AM [facility] Calcium 9.8 8.4 - 10.4 mg/dL 11/10/2021 11:05 AM [facility] Anion Gap 11 8 - 18 mmol/L 11/10/2021 11:05 AM [facility] BUN 24(H) 8.9 - 20.6 mg/dL 11/10/2021 11:05 AM [facility] Creatinine 0.88 0.72 - 1.25 mg/dL 11/10/2021 11:05 AM [facility] Alkaline Phosphatase 139 40 - 150 U/L 11/10/2021 11:05 AM [facility] ALT 35 0 - 61 U/L 11/10/2021 11:05 AM [facility] AST 23 5 - 34 U/L 11/10/2021 11:05 AM [facility] Protein Total 7.2 6.4 - 8.3 gm/dL 11/10/2021 11:05 AM [facility] Albumin 3.5 3.5 - 5.2 gm/dL 11/10/2021 11:05 AM [facility] Bilirubin Total 0.2 0.2 - 1.2 mg/dL 11/10/2021 11:05 AM CDT [facility] eGFR by CKD-EPI >90 >=90 mL/min/1.7 3 m2 11/10/2021 11:05 AM CDT [facility] Blood BLOOD SPECIMEN / Unknown Venipuncture / Unknown 11/10/2021 4:30 AM CDT 11/10/2021 8:51 AM CDT us Vinicio Quintanilla MD LAB - CHEMISTRY ORDERABLES Final Result [facility] [address] [place] [address] documented in this encounter Visit Diagnoses Not on filedocumented in this encounter Care Teams [employer] Clerk Relationship Specialty Start Date End Date Pepe Matrel MD [address] [place] [address] [address] [place] [address] PCP - General 08/14/16 documented as of this encounter
--- OUTSIDE RECORDS SUMMARY | 2024-12-28 17:51 | XMS_ITS | Encounter Summary ---
Author Organization [facility] Address [address] [place] [address] Care Team Providers Care Probe Operator Name Role Phone Pepe Martel MD Primary Care Provider [phone] Encounter Details Date Type Department Care Team (Late st Contact Info) Description 10/27/2021 Lab Requisition [facility] [address] [place] [address] [place] [address] [place] [address] Social History Tobacco Use Types Packs/Day Years [...] CBC WITH DIFFERENTIAL (10/27/2021 3:02 AM CDT) [facility] WBC 7.0 4.4 - 10.7 x10E9/L 10/27/2021 11:07 AM CDT [facility] WBC Corrected 10/27/2021 11:07 AM CDT [...] 30.8 - 35.9 gm/dL 10/27/2021 11:07 AM [facility] Platelet Count 385 153 - 416 x10E9/L 10/27/2021 11:07 AM [facility] RDW-CV 14.0 12.1 - 14.9 % 10/27/2021 11:07 AM [facility] MPV 10.7 9.4 - 12.9 fl 10/27/2021 11:07 AM [facility] Neutrophils % 59.4 44.0 - 73.0 % 10/27/2021 11:07 AM [facility] Lymphocytes % 27.8 20.0 - 43.0 % 10/27/2021 11:07 AM [facility] Monocytes % 8.4 5.0 - 13.0 % 10/27/2021 11:07 AM [facility] Eosinophils % 3.7 0.0 - 6.0 % 10/27/2021 11:07 AM [facility] Basophils % 0.4 0.0 - 2.0 % 10/27/2021 11:07 AM [facility] Immature Granulocytes 0.3 0 - 1 % 10/27/2021 11:07 AM [facility] Neutrophil Absolute 4.15 2.01 - 7.14 x10E9/L 10/27/2021 11:07 AM [facility] Lymphocytes Absolute 1.94 1.07 - 3.94 x10E9/L 10/27/2021 11:07 AM [facility] Monocytes Absolute 0.59 0.26 - 1.07 x10E9/L 10/27/2021 11:07 AM [facility] Eosinophils Absolute 0.26 0 - 0.47 x10E9/L 10/27/2021 11:07 AM [facility] Basophils Absolute 0.03 0 - 0.08 x10E9/L 10/27/2021 11:07 AM [facility] Immature Granulocytes Absolute 0.02 0.00 - 0.06 x10E9/L 10/27/2021 11:07 AM [facility] nRBC Auto 0 /100 WBC 10/27/2021 11:07 AM [facility] Blood BLOOD SPECIMEN / Unknown Venipuncture / Unknown 10/27/2021 3:02 AM CDT 10/27/2021 10:57 AM CDT us Vinicio Quintanilla MD LAB - HEMATOLOGY ORDERABLES Giselle adams Result [facility] [address] [place] [address] * (ABNORMAL) COMPREHENSIVE METABOLIC PANEL (10/27/2021 3:02 AM CDT) Glucose 111(H) 70 - 105 mg/dL 10/27/2021 11:31 AM CDT [facility] Sodium 140 136 - 145 mmol/L 10/27/2021 11:31 AM CDT [facility] Potassium 4.8 3.5 - 5.1 mmol/L 10/27/2021 11:31 AM CDT [facility] Chloride 103 98 - 107 mmol/L 10/27/2021 11:31 AM CDT [facility] CO2 23 23 - 31 mmol/L 10/27/2021 11:31 AM CDT [facility] Calcium 10.0 8.4 - 10.4 mg/dL 10/27/2021 11:31 AM CDT [facility] Anion Gap 14 8 - 18 mmol/L 10/27/2021 11:31 AM CDT [facility] BUN 33(H) 8.9 - 20.6 mg/dL 10/27/2021 11:31 AM CDT [facility] Creatinine 1.01 0.72 - 1.25 mg/dL 10/27/2021 11:31 AM CDT [facility] Alkaline Phosphatase 132 40 - 150 U/L 10/27/2021 11:31 AM CDT [facility] ALT 18 0 - 61 U/L 10/27/2021 11:31 AM CDT [facility] AST 12 5 - 34 U/L 10/27/2021 11:31 AM CDT [facility] Protein Total 7.3 6.4 - 8.3 gm/dL 10/27/2021 11:31 AM CDT [facility] Albumin 3.6 3.5 - 5.2 gm/dL 10/27/2021 11:31 AM CDT [facility] Bilirubin Total 0.2 0.2 - 1.2 mg/dL 10/27/2021 11:31 AM CDT [facility] eGFR by CKD-EPI >90 >=90 mL/min/1.7 3 m2 10/27/2021 11:31 AM CDT [facility] Blood BLOOD SPECIMEN / Unknown Venipuncture / Unknown 10/27/2021 3:02 AM CDT 10/27/2021 10:57 AM CDT us Vinicio Quintanilla MD LAB - CHEMISTRY ORDERABLES Final Result [facility] [address] [place], [place] [id number] documented in this encounter Visit Diagnoses Not on filedocumented in this encounter Care Teams Probe Operator Relationship Specialty Start Date End Date Pepe Martel MD [address] [place] [address] 3 [place] [address] PCP - General 08/14/16 documented as of this encounter
--- OUTSIDE RECORDS SUMMARY | 2024-12-28 17:51 | XMS_ITS | Encounter Summary ---
Author Organization [facility] Address [address] [place] [address] Care Team Providers Care Chronic Disease Epidemiologist Name Role Phone Pepe Martel MD Primary Care Provider [phone] Encounter Details Date Type Department Care Team (Late st Contact Info) Description 11/13/2021 Lab Requisition [facility] [address] [place] [address] [place] [address] [place] [address] Social History Tobacco Use Types Packs/Day Years [...] Auto 7.3 x10E9/L 11/13/2021 10:56 AM CDT [facility] WBC Corrected 11/13/2021 10:56 AM CDT [facility] nRBC 11/13/2021 10:56 AM CDT [facility] Neutrophil % Manual 60 44 - 73 % 11/13/2021 10:56 AM CDT [facility] Lymphocytes % Manual 26 20 - 43 % 11/13/2021 10:56 AM CDT [facility] Monocytes % Manual 11 5 - 13 % 11/13/2021 10:56 AM CDT [facility] Eosinophils % Manual 1 0 - 6 % 11/13/2021 10:56 AM CDT [facility] Basophils % Manual 1 0 - 2 % 11/13/2021 10:56 AM CDT [facility] Neutrophils Absolute Manual 4.38 2.01 - 7.14 x10E9/L 11/13/2021 10:56 AM CDT [facility] Lymphocytes Absolute Manual 1.90 1.07 - 3.94 x10E9/L 11/13/2021 10:56 AM CDT [facility] Monocytes Absolute Manual 0.80 0.26 - 1.07 x10E9/L 11/13/2021 10:56 AM T [facility] Eosinophils Absolute Manual 0.07 0.00 - 0.47 x10E9/L 11/13/2021 10:56 AM CDT [facility] Basophils Absolute Manual 0.07 0.00 - 0.08 x10E9/L 11/13/2021 10:56 AM T [facility] Atypical Lymphocytes Absolute Manual 0.07(H) <=0.00 x10E9/L 11/13/2021 10:56 AM [facility] Atypical Lymphocyte % Manual 1(H) <=0 % 11/13/2021 10:56 AM [facility] Cells Counted 100 # cells 11/13/2021 10:56 AM [facility] Platelet Estimation Adequate platelets Normal, Adequate platelets 11/13/2021 10:56 AM [facility] RBC Morphology Normal 11/13/2021 10:56 AM [facility] WBC Morph Normal 11/13/2021 10:56 AM [facility] Clumped Platelets 1+(A) None 11/13/2021 10:56 AM [facility] Blood BLOOD SPECIMEN / Unknown Venipuncture / Unknown 11/13/2021 5:48 AM CDT 11/13/2021 9:23 AM CDT us Vinicio Quintanilla MD LAB - HEMATOLOGY ORDERABLES Giselle adams Result [facility] [address] [place] [address] * (ABNORMAL) CBC WITH DIFFERENTIAL (11/13/2021 5:48 AM CDT) [facility] WBC 7.3 4.4 - 10.7 x10E9/L 11/13/2021 10:23 AM CDT [facility] WBC Corrected 11/13/2021 10:23 AM CDT [facility] RBC 3.86 3.80 - 5.40 x10E12/L 11/13/2021 10:23 AM CDT [facility] Hemoglobin 10.5(L) 12.0 - 17.6 gm/dL 11/13/2021 10:23 AM CDT [facility] Hematocrit 33.2(L) 35.2 - 51.7 % 11/13/2021 10:23 AM CDT [facility] MCV 86.0 80.7 - 98.3 fl 11/13/2021 10:23 AM CDT [facility] MCH 27.2 26.7 - 34.0 pg 11/13/2021 10:23 AM CDT [facility] MCHC 31.6 30.8 - 35.9 gm/dL 11/13/2021 10:23 AM CDT [facility] Platelet Count 371 153 - 416 x10E9/L 11/13/2021 10:23 AM CDT [facility] RDW-CV 13.4 12.1 - 14.9 % 11/13/2021 10:23 AM CDT [facility] MPV 10.0 9.4 - 12.9 fl 11/13/2021 10:23 AM CDT [facility] nRBC Auto 0 /100 WBC 11/13/2021 10:23 AM [facility] Blood BLOOD SPECIMEN / Unknown Venipuncture / Unknown 11/13/2021 5:48 AM CDT 11/13/2021 9:23 AM CDT us Vinicio Quintanilla MD LAB - HEMATOLOGY ORDERABLES Giselle adams Result [facility] [address] [place] [address] * (ABNORMAL) COMPREHENSIVE METABOLIC PANEL (11/13/2021 5:48 AM CDT) [facility] Glucose 119(H) 70 - 105 mg/dL 11/13/2021 10:48 AM CDT [facility] Sodium 141 136 - 145 mmol/L 11/13/2021 10:48 AM CDT [facility] Potassium 4.7 3.5 - 5.1 mmol/L 11/13/2021 10:48 AM CDT [facility] Chloride 107 98 - 107 mmol/L 11/13/2021 10:48 AM CDT [facility] CO2 23 23 - 31 mmol/L 11/13/2021 10:48 AM CDT [facility] Calcium 9.9 8.4 - 10.4 mg/dL 11/13/2021 10:48 AM CDT [facility] Anion Gap 11 8 - 18 mmol/L 11/13/2021 10:48 AM CDT [facility] BUN 28(H) 8.9 - 20.6 mg/dL 11/13/2021 10:48 AM CDT [facility] Creatinine 0.92 0.72 - 1.25 mg/dL 11/13/2021 10:48 AM CDT [facility] Alkaline Phosphatase 132 40 - 150 U/L 11/13/2021 10:48 AM CDT [facility] ALT 41 0 - 61 U/L 11/13/2021 10:48 AM CDT [facility] AST 25 5 - 34 U/L 11/13/2021 10:48 AM CDT [facility] Protein Total 7.1 6.4 - 8.3 gm/dL 11/13/2021 10:48 AM CDT [facility] Albumin 3.4(L) 3.5 - 5.2 gm/dL 11/13/2021 10:48 AM CDT [facility] Bilirubin Total 0.2 0.2 - 1.2 mg/dL 11/13/2021 10:48 AM T [facility] eGFR by CKD-EPI >90 >=90 mL/min/1.7 3 m2 11/13/2021 10:48 AM T [facility] Blood BLOOD SPECIMEN / Unknown Venipuncture / Unknown 11/13/2021 5:48 AM CDT 11/13/2021 9:23 AM CDT us Vinicio Quintanilla MD LAB - CHEMISTRY ORDERABLES Final Result [facility] [address] [place] [address] documented in this encounter Visit Diagnoses Not on filedocumented in this encounter Care Teams Chronic Disease Epidemiologist Relationship Specialty Start Date End Date Pepe Martel MD [address] [place] [id number] PCP - General 08/14/16 documented as of this encounter
--- OUTSIDE RECORDS SUMMARY | 2024-12-28 17:51 | XMS_ITS | Encounter Summary ---
Author Organization [facility] Address [address] [place] [address] Care Team Providers Care Gastroenterology Technician Name Role Phone Pepe Martel MD Primary Care Provider [phone] Encounter Details Date Type Department Care Team (Late st Contact Info) Description 11/27/2021 Lab Requisition [facility] [address] [place] [address] Alverto Virgen MD [address] [place] [address] [place] [address] Social History Tobacco Use Types Packs/Day Years [...] COMPREHENSIVE METABOLIC PANEL (11/27/2021 3:20 AM CDT) [facility] Glucose 91 70 - 105 mg/dL 11/27/2021 12:39 PM CDT [facility] Sodium 136 136 - 145 mmol/L 11/27/2021 12:39 PM CDT [facility] Potassium 4.8 3.5 - 5.1 mmol/L 11/27/2021 12:39 PM CDT [facility] Chloride 98 98 - 107 mmol/L 11/27/2021 12:39 PM CDT [facility] CO2 24 23 - 31 mmol/L 11/27/2021 12:39 PM CDT [facility] Calcium 10.4 8.4 - 10.4 mg/dL 11/27/2021 12:39 PM CDT [facility] Anion Gap 14 8 - 18 mmol/L 11/27/2021 12:39 PM CDT [facility] BUN 30(H) 8.9 - 20.6 mg/dL 11/27/2021 12:39 PM CDT [facility] Creatinine 0.98 0.72 - 1.25 mg/dL 11/27/2021 12:39 PM CDT [facility] Alkaline Phosphatase 135 40 - 150 U/L 11/27/2021 12:39 PM CDT [facility] ALT 20 0 - 61 U/L 11/27/2021 12:39 PM CDT [facility] AST 13 5 - 34 U/L 11/27/2021 12:39 PM CDT [facility] Protein Total 7.9 6.4 - 8.3 gm/dL 11/27/2021 12:39 PM CDT [facility] Albumin [...] 3:20 AM CDT 11/27/2021 11:38 AM CDT us Alverto Virgen MD LAB - CHEMISTRY ORDERABLE S Final Result [facility] [address] [place] [address] * (ABNORMAL) CBC WITH DIFFERENTIAL (11/27/2021 3:20 AM CDT) [facility] WBC 7.8 4.4 - 10.7 x10E9/L 11/27/2021 [...] 9.4 - 12.9 fl 11/27/2021 12:20 PM [facility] Neutrophils % 60.5 44.0 - 73.0 [...] 3:20 AM CDT 11/27/2021 11:38 AM CDT us Alverto Virgen MD LAB - HEMATOLOGY ORDERABL ES Final Result [facility] [address] [place] [address] documented in this encounter Visit Diagnoses Not on filedocumented in this encounter Care Teams Gastroenterology Technician Relationship Specialty Start Date End Date Pepe Martel MD [address] [place] [address] 3 [place] [address] PCP - General 08/14/16 documented as of this encounter
--- OUTSIDE RECORDS SUMMARY | 2024-12-28 17:51 | XMS_ITS | Encounter Summary ---
Author Organization [facility] Address [address] [place] [address] Care Team Providers Care Congressional Representative Name Role Phone Pepe Martel MD Primary Care Provider [phone] Encounter Details Date Type Department Care Team (Late st Contact Info) Description 11/24/2021 Lab Requisition [facility] [address] [place] [address] Alverto Virgen MD [address] [place] [address] [place] [address] Social History Tobacco Use Types Packs/Day Years [...] CBC WITH DIFFERENTIAL (11/24/2021 4:50 AM CDT) [facility] WBC 6.5 4.4 - 10.7 x10E9/L 11/24/2021 [...] 30.8 - 35.9 gm/dL 11/24/2021 11:46 AM [facility] Platelet Count 475(H) 153 - 416 x10E9/L 11/24/2021 11:46 AM CDT [facility] RDW-CV 13.1 12.1 - 14.9 % 11/24/2021 11:46 AM [facility] MPV 9.9 9.4 - 12.9 fl 11/24/2021 11:46 AM [facility] Neutrophils % 56.6 44.0 - 73.0 % 11/24/2021 11:46 AM [facility] Lymphocytes % 30.6 20.0 - 43.0 % 11/24/2021 11:46 AM [facility] Monocytes % 9.5 5.0 - 13.0 % 11/24/2021 11:46 AM [facility] Eosinophils % 2.8 0.0 - 6.0 % 11/24/2021 11:46 AM [facility] Basophils % 0.3 0.0 - 2.0 % 11/24/2021 11:46 AM [facility] Immature Granulocytes 0.2 0 - 1 % 11/24/2021 11:46 AM [facility] Neutrophil Absolute 3.68 2.01 - 7.14 x10E9/L 11/24/2021 11:46 AM [facility] Lymphocytes Absolute 1.99 1.07 - 3.94 x10E9/L 11/24/2021 11:46 AM [facility] Monocytes Absolute 0.62 0.26 - 1.07 x10E9/L 11/24/2021 11:46 AM [facility] Eosinophils Absolute 0.18 0 - 0.47 x10E9/L 11/24/2021 11:46 AM [facility] Basophils Absolute 0.02 0 - 0.08 x10E9/L 11/24/2021 11:46 AM [facility] Immature Granulocytes Absolute 0.01 0.00 - 0.06 x10E9/L 11/24/2021 11:46 AM [facility] nRBC Auto 0 /100 WBC 11/24/2021 11:46 AM [facility] Blood BLOOD SPECIMEN / Unknown Venipuncture / Unknown 11/24/2021 4:50 AM CDT 11/24/2021 10:57 AM CDT us Alverto Virgen MD LAB - HEMATOLOGY ORDERABL ES Final Result [facility] [address] [place] [address] * (ABNORMAL) COMPREHENSIVE METABOLIC PANEL (11/24/2021 4:50 AM CDT) Glucose 111(H) 70 - 105 mg/dL 11/24/2021 12:11 PM CDT [facility] Sodium 139 136 - 145 mmol/L 11/24/2021 12:11 PM CDT [facility] Potassium 4.8 3.5 - 5.1 mmol/L 11/24/2021 12:11 PM CDT [facility] Chloride 101 98 - 107 mmol/L 11/24/2021 12:11 PM CDT [facility] CO2 25 23 - 31 mmol/L 11/24/2021 12:11 PM CDT [facility] Calcium 9.9 8.4 - 10.4 mg/dL 11/24/2021 12:11 PM CDT [facility] Anion Gap 13 8 - 18 mmol/L 11/24/2021 12:11 PM CDT [facility] BUN 31(H) 8.9 - 20.6 mg/dL 11/24/2021 12:11 PM CDT [facility] Creatinine 0.94 0.72 - 1.25 mg/dL 11/24/2021 12:11 PM CDT [facility] Alkaline Phosphatase 123 40 - 150 U/L 11/24/2021 12:11 PM CDT [facility] ALT 21 0 - 61 U/L 11/24/2021 12:11 PM CDT [facility] AST 15 5 - 34 U/L 11/24/2021 12:11 PM CDT [facility] Protein Total 7.5 6.4 - 8.3 gm/dL 11/24/2021 12:11 PM CDT [facility] Albumin 3.6 3.5 - 5.2 gm/dL 11/24/2021 12:11 PM CDT [facility] Bilirubin Total 0.3 0.2 - 1.2 mg/dL 11/24/2021 12:11 PM CDT [facility] eGFR by CKD-EPI >90 >=90 mL/min/1.7 3 m2 11/24/2021 12:11 PM CDT [facility] Blood BLOOD SPECIMEN / Unknown Venipuncture / Unknown 11/24/2021 4:50 AM CDT 11/24/2021 10:57 AM CDT us Alverto Virgen MD LAB - CHEMISTRY ORDERABLE S Final Result Performing Organization Address City/State/[facility] Co de Phone Number [facility] [address] [place], [place] [phone] documented in this encounter Visit Diagnoses Not on filedocumented in this encounter Care Teams Congressional Representative Relationship Specialty Start Date End Date Pepe Martel MD [address] [place] [address] [address] [place] [address] PCP - General 08/14/16 documented as of this encounter
--- OUTSIDE RECORDS SUMMARY | 2024-12-28 17:51 | XMS_ITS | Encounter Summary ---
Author Organization [facility] Address [address] [place] [address] Care Team Providers Care House Rn Name Role Phone Pepe Martel MD Primary Care Provider [phone] Encounter Details Date Type Department Care Team (Late st Contact Info) Description 09/18/2021 Lab Requisition [facility] [address] [place] [address] [place] [address] [place] [address] Social History Tobacco Use Types Packs/Day Years [...] - 10.7 x10E9/L 09/18/2021 9:02 AM CDT [facility] WBC Corrected 09/18/2021 9:02 AM CDT [facility] RBC 4.74 3.80 - 5.40 x10E12/L 09/18/2021 9:02 AM CDT [facility] Hemoglobin 12.6 12.0 - 17.6 gm/dL 09/18/2021 9:02 AM CDT [facility] Hematocrit 41.6 35.2 - 51.7 % 09/18/2021 9:02 AM CDT [facility] MCV 87.8 80.7 - 98.3 fl 09/18/2021 9:02 AM CDT [facility] MCH 26.6(L) 26.7 - 34.0 pg 09/18/2021 9:02 AM CDT [facility] MCHC 30.3(L) 30.8 - 35.9 gm/dL 09/18/2021 9:02 AM [facility] Platelet Count 481(H) 153 - 416 x10E9/L 09/18/2021 9:02 AM [facility] RDW-CV 14.0 12.1 - 14.9 % 09/18/2021 9:02 AM [facility] MPV 10.3 9.4 - 12.9 fl 09/18/2021 9:02 AM [facility] Neutrophils % 62.2 44.0 - 73.0 % 09/18/2021 9:02 AM [facility] Lymphocytes % 23.4 20.0 - 43.0 % 09/18/2021 9:02 AM [facility] Monocytes % 12.8 5.0 - 13.0 % 09/18/2021 9:02 AM [facility] Eosinophils % 1.1 0.0 - 6.0 % 09/18/2021 9:02 AM [facility] Basophils % 0.4 0.0 - 2.0 % 09/18/2021 9:02 AM [facility] Immature Granulocytes 0.1 0 - 1 % 09/18/2021 9:02 AM [facility] Neutrophil Absolute 5.78 2.01 - 7.14 x10E9/L 09/18/2021 9:02 AM [facility] Lymphocytes Absolute 2.17 1.07 - 3.94 x10E9/L 09/18/2021 9:02 AM [facility] Monocytes Absolute 1.19(H) 0.26 - 1.07 x10E9/L 09/18/2021 9:02 AM [facility] Eosinophils Absolute 0.10 0 - 0.47 x10E9/L 09/18/2021 9:02 AM [facility] Basophils Absolute 0.04 0 - 0.08 x10E9/L 09/18/2021 9:02 AM [facility] Immature Granulocytes Absolute 0.01 0.00 - 0.06 x10E9/L 09/18/2021 9:02 AM [facility] nRBC Auto 0 /100 WBC 09/18/2021 9:02 AM [facility] Blood BLOOD SPECIMEN / Unknown Venipuncture / Unknown 09/18/2021 5:31 AM CDT 09/18/2021 8:55 AM CDT us Vinicio Quintanilla MD LAB - HEMATOLOGY ORDERABLES Giselle adams Result [facility] [address] [place] [address] * (ABNORMAL) COMPREHENSIVE METABOLIC PANEL (09/18/2021 5:31 AM CDT) [facility] Glucose 109(H) 70 - 105 mg/dL 09/18/2021 9:16 AM CDT [facility] Sodium 146(H) 136 - 145 mmol/L 09/18/2021 9:16 AM CDT [facility] Potassium 4.6 3.5 - 5.1 mmol/L 09/18/2021 9:16 AM CDT [facility] Chloride 104 98 - 107 mmol/L 09/18/2021 9:16 AM CDT [facility] CO2 29 23 - 31 mmol/L 09/18/2021 9:16 AM CDT [facility] Calcium 10.9(H) 8.4 - 10.4 mg/dL 09/18/2021 9:16 AM CDT [facility] Anion Gap 13 8 - 18 mmol/L 09/18/2021 9:16 AM CDT [facility] BUN 33(H) 8.9 - 20.6 mg/dL 09/18/2021 9:16 AM CDT [facility] Creatinine 1.23 0.72 - 1.25 mg/dL 09/18/2021 9:16 AM CDT [facility] Alkaline Phosphatase 184(H) 40 - 150 U/L 09/18/2021 9:16 AM CDT [facility] ALT 36 0 - 61 U/L 09/18/2021 9:16 AM CDT [facility] AST 17 5 - 34 U/L 09/18/2021 9:16 AM CDT [facility] Protein Total 8.6(H) 6.4 - 8.3 gm/dL 09/18/2021 9:16 AM CDT [facility] Albumin 4.1 3.5 - 5.2 gm/dL 09/18/2021 9:16 AM CDT [facility] Bilirubin Total 0.3 0.2 - 1.2 mg/dL 09/18/2021 9:16 AM CDT [facility] eGFR by CKD-EPI 79(L) >=90 mL/min/1.7 3 m2 09/18/2021 9:16 AM CDT [facility] Blood BLOOD SPECIMEN / Unknown Venipuncture / Unknown 09/18/2021 5:31 AM CDT 09/18/2021 8:55 AM CDT Narrative [facility] - 09/18/2021 9:16 AM CDT eGFR result was calculated using the updated CKD-EPI Creatinine Equations (2020). Prior to go live 2021 the eGFR was calculated using the MDRD calculation. Please note Reference Range change. us Vinicio Quintanilla MD LAB - CHEMISTRY ORDERABLES Final Result Performing Organization Address City/State/[facility] Co de Phone Number [facility] [address] [place] [address] documented in this encounter Visit Diagnoses Not on filedocumented in this encounter Care Teams House Rn Relationship Specialty Start Date End Date Pepe Martel MD [address] [place] [id number] PCP - General 08/14/16 documented as of this encounter
--- OUTSIDE RECORDS SUMMARY | 2024-12-28 17:51 | XMS_ITS | Encounter Summary ---
Author Organization [facility] Address [address] [place] [address] Care Team Providers Care Draw Bench Operator Helper Name Role Phone Pepe Martel MD Primary Care Provider [phone] Encounter Details Date Type Department Care Team (Late st Contact Info) Description 11/20/2021 Lab Requisition [facility] [address] [place] [address] Alverto Virgen MD [address] [place] [address] [place] [address] Social History Tobacco Use Types Packs/Day Years [...] COMPREHENSIVE METABOLIC PANEL (11/20/2021 3:10 AM CDT) [facility] Glucose 94 70 - 105 mg/dL 11/20/2021 9:43 AM CDT [facility] Sodium 138 136 - 145 mmol/L 11/20/2021 9:43 AM CDT [facility] Potassium 5.0 3.5 - 5.1 mmol/L 11/20/2021 9:43 AM CDT [facility] Chloride 101 98 - 107 mmol/L 11/20/2021 9:43 AM CDT [facility] CO2 24 23 - 31 mmol/L 11/20/2021 9:43 AM CDT [facility] Calcium 10.2 8.4 - 10.4 mg/dL 11/20/2021 9:43 AM CDT [facility] Anion Gap 13 8 - 18 mmol/L 11/20/2021 9:43 AM CDT [facility] BUN 33(H) 8.9 - 20.6 mg/dL 11/20/2021 9:43 AM CDT [facility] Creatinine 0.86 0.72 - 1.25 mg/dL 11/20/2021 9:43 AM CDT [facility] Alkaline Phosphatase 124 40 - 150 U/L 11/20/2021 9:43 AM CDT [facility] ALT 24 0 - 61 U/L 11/20/2021 9:43 AM CDT [facility] AST 16 5 - 34 U/L 11/20/2021 9:43 AM CDT [facility] Protein Total 7.2 6.4 - 8.3 gm/dL 11/20/2021 9:43 AM CDT [facility] Albumin 3.5 3.5 - 5.2 gm/dL 11/20/2021 9:43 AM CDT [facility] Bilirubin Total 0.2 0.2 - 1.2 mg/dL 11/20/2021 9:43 AM CDT [facility] eGFR by CKD-EPI >90 >=90 mL/min/1.7 3 m2 11/20/2021 9:43 AM CDT [facility] Blood BLOOD SPECIMEN / Unknown Venipuncture / Unknown 11/20/2021 3:10 AM CDT 11/20/2021 8:55 AM CDT us Alverto Virgen MD LAB - CHEMISTRY ORDERABLE S Final Result Performing Organization Address City/State/[facility] [[email or web address]] Co de Phone Number [facility] [address] [place] [address] * (ABNORMAL) CBC WITH DIFFERENTIAL (11/20/2021 3:10 AM CDT) [facility] WBC 8.0 4.4 - 10.7 x10E9/L 11/20/2021 9:21 AM CDT [facility] WBC Corrected 11/20/2021 9:21 AM CDT [facility] RBC 3.90 3.80 - 5.40 x10E12/L 11/20/2021 9:21 AM CDT [facility] Hemoglobin 10.5(L) 12.0 - 17.6 gm/dL 11/20/2021 9:21 AM CDT [facility] Hematocrit 33.0(L) 35.2 - 51.7 % 11/20/2021 9:21 AM CDT [facility] MCV 84.6 80.7 - 98.3 fl 11/20/2021 9:21 AM CDT [facility] MCH 26.9 26.7 - 34.0 pg 11/20/2021 9:21 AM CDT [facility] MCHC 31.8 30.8 - 35.9 gm/dL 11/20/2021 9:21 AM CDT [facility] Platelet Count 475(H) 153 - 416 x10E9/L 11/20/2021 9:21 AM CDT [facility] RDW-CV 13.2 12.1 - 14.9 % 11/20/2021 9:21 AM CDT [facility] MPV 10.1 9.4 - 12.9 fl 11/20/2021 9:21 AM T [facility] Neutrophils % 59.0 44.0 - 73.0 % 11/20/2021 9:21 AM CDT [facility] Lymphocytes % 26.7 20.0 - 43.0 % 11/20/2021 9:21 AM CDT [facility] Monocytes % 11.4 5.0 - 13.0 % 11/20/2021 9:21 AM CDT [facility] Eosinophils % 2.4 0.0 - 6.0 % 11/20/2021 9:21 AM CDT [facility] Basophils % 0.4 0.0 - 2.0 % 11/20/2021 9:21 AM CDT [facility] Immature Granulocytes 0.1 0 - 1 % 11/20/2021 9:21 AM CDT [facility] Neutrophil Absolute 4.70 2.01 - 7.14 x10E9/L 11/20/2021 9:21 AM CDT [facility] Lymphocytes Absolute 2.13 1.07 - 3.94 x10E9/L 11/20/2021 9:21 AM CDT [facility] Monocytes Absolute 0.91 0.26 - 1.07 x10E9/L 11/20/2021 9:21 AM CDT [facility] Eosinophils Absolute 0.19 0 - 0.47 x10E9/L 11/20/2021 9:21 AM CDT [facility] Basophils Absolute 0.03 0 - 0.08 x10E9/L 11/20/2021 9:21 AM CDT [facility] Immature Granulocytes Absolute 0.01 0.00 - 0.06 x10E9/L 11/20/2021 9:21 AM CDT [facility] nRBC Auto 0 /100 WBC 11/20/2021 9:21 AM CDT [facility] Blood BLOOD SPECIMEN / Unknown Venipuncture / Unknown 11/20/2021 3:10 AM CDT 11/20/2021 8:55 AM CDT us Alverto Virgen MD LAB - HEMATOLOGY ORDERABL ES Final Result [facility] [address] [place] [address] documented in this encounter Visit Diagnoses Not on filedocumented in this encounter Care Teams Draw Bench Operator Helper Relationship Specialty Start Date End Date Pepe Martel MD [address] [place] [id number] PCP - General 08/14/16 documented as of this encounter
--- OUTSIDE RECORDS SUMMARY | 2024-12-28 17:51 | XMS_ITS | Encounter Summary ---
Author Organization [facility] Address [address] [place] [address] Care Team Providers Care Summer Law Clerk Name Role Phone Pepe Martel MD Primary Care Provider [phone] Encounter Details Date Type Department Care Team (Late st Contact Info) Description 09/11/2021 Lab Requisition [facility] [address] [place] [address] [place] [address] [place] [address] Social History Tobacco Use Types Packs/Day Years [...] CBC WITH DIFFERENTIAL (09/11/2021 4:30 AM CDT) [facility] Signature WBC 7.8 4.4 - 10.7 x10E9/L 09/11/2021 10:16 AM CDT [facility] WBC Corrected 09/11/2021 10:16 AM CDT [facility] RBC 4.39 3.80 - 5.40 x10E12/L 09/11/2021 10:16 AM CDT [facility] Hemoglobin 11.6(L) 12.0 - 17.6 gm/dL 09/11/2021 10:16 AM CDT [facility] Hematocrit 37.8 35.2 - 51.7 % 09/11/2021 10:16 AM CDT [facility] MCV 86.1 80.7 - 98.3 fl 09/11/2021 10:16 AM CDT [facility] MCH 26.4(L) 26.7 - 34.0 pg 09/11/2021 10:16 AM CDT [facility] MCHC 30.7(L) 30.8 - 35.9 gm/dL 09/11/2021 10:16 AM [facility] Platelet Count 469(H) 153 - 416 x10E9/L 09/11/2021 10:16 AM [facility] RDW-CV 14.2 12.1 - 14.9 % 09/11/2021 10:16 AM [facility] MPV 10.1 9.4 - 12.9 fl 09/11/2021 10:16 AM [facility] Neutrophils % 63.0 44.0 - 73.0 % 09/11/2021 10:16 AM [facility] Lymphocytes % 23.4 20.0 - 43.0 % 09/11/2021 10:16 AM [facility] Monocytes % 10.4 5.0 - 13.0 % 09/11/2021 10:16 AM [facility] Eosinophils % 2.7 0.0 - 6.0 % 09/11/2021 10:16 AM [facility] Basophils % 0.4 0.0 - 2.0 % 09/11/2021 10:16 AM [facility] Immature Granulocytes 0.1 0 - 1 % 09/11/2021 10:16 AM [facility] Neutrophil Absolute 4.91 2.01 - 7.14 x10E9/L 09/11/2021 10:16 AM [facility] Lymphocytes Absolute 1.82 1.07 - 3.94 x10E9/L 09/11/2021 10:16 AM [facility] Monocytes Absolute 0.81 0.26 - 1.07 x10E9/L 09/11/2021 10:16 AM [facility] Eosinophils Absolute 0.21 0 - 0.47 x10E9/L 09/11/2021 10:16 AM [facility] Basophils Absolute 0.03 0 - 0.08 x10E9/L 09/11/2021 10:16 AM [facility] Immature Granulocytes Absolute 0.01 0.00 - 0.06 x10E9/L 09/11/2021 10:16 AM [facility] nRBC Auto 0 /100 WBC 09/11/2021 10:16 AM [facility] Blood BLOOD SPECIMEN / Unknown Venipuncture / Unknown 09/11/2021 4:30 AM CDT 09/11/2021 9:37 AM CDT us Vinicio Quintanilla MD LAB - HEMATOLOGY ORDERABLES Giselle adams Result [facility] [address] [place] [address] * (ABNORMAL) COMPREHENSIVE METABOLIC PANEL (09/11/2021 4:30 AM CDT) [facility] Glucose 93 70 - 105 mg/dL 09/11/2021 10:39 AM CDT [facility] Sodium 138 136 - 145 mmol/L 09/11/2021 10:39 AM CDT [facility] Potassium 4.7 3.5 - 5.1 mmol/L 09/11/2021 10:39 AM CDT [facility] Chloride 100 98 - 107 mmol/L 09/11/2021 10:39 AM CDT [facility] CO2 22(L) 23 - 31 mmol/L 09/11/2021 10:39 AM CDT [facility] Calcium 10.0 8.4 - 10.4 mg/dL 09/11/2021 10:39 AM CDT [facility] Anion Gap 16 8 - 18 mmol/L 09/11/2021 10:39 AM CDT [facility] BUN 29(H) 8.9 - 20.6 mg/dL 09/11/2021 10:39 AM CDT [facility] Creatinine 0.97 0.72 - 1.25 mg/dL 09/11/2021 10:39 AM CDT [facility] Alkaline Phosphatase 146 40 - 150 U/L 09/11/2021 10:39 AM CDT [facility] ALT 21 0 - 61 U/L 09/11/2021 10:39 AM CDT [facility] AST 16 5 - 34 U/L 09/11/2021 10:39 AM CDT [facility] Protein Total 7.7 6.4 - 8.3 gm/dL 09/11/2021 10:39 AM CDT [facility] Albumin 3.6 3.5 - 5.2 gm/dL 09/11/2021 10:39 AM CDT [facility] Bilirubin Total 0.2 0.2 - 1.2 mg/dL 09/11/2021 10:39 AM CDT [facility] eGFR by CKD-EPI >90 >=90 mL/min/1.7 3 m2 09/11/2021 10:39 AM CDT [facility] Blood BLOOD SPECIMEN / Unknown Venipuncture / Unknown 09/11/2021 4:30 AM CDT 09/11/2021 9:37 AM CDT Narrative [facility] - 09/11/2021 10:39 AM CDT eGFR result was calculated using the updated CKD-EPI Creatinine Equations (2020). Prior to go live 2021 the eGFR was calculated using the MDRD calculation. Please note Reference Range change. us Vinicio Quintanilla MD LAB - CHEMISTRY ORDERABLES Final Result Performing Organization Address City/State/[facility] Co de Phone Number [facility] [address] [place] [address] documented in this encounter Visit Diagnoses Not on filedocumented in this encounter Care Teams Summer Law Clerk Relationship Specialty Start Date End Date Pepe Martel MD [address] [place] [address] [address] [place] [address] PCP - General 08/14/16 documented as of this encounter
--- OUTSIDE RECORDS SUMMARY | 2024-12-28 17:51 | XMS_ITS | Encounter Summary ---
Author Organization [facility] Address [address] [place] [address] Care Team Providers Care Child Protective Services Specialist Name Role Phone Pepe Martel MD Primary Care Provider [phone] Encounter Details Date Type Department Care Team (Late st Contact Info) Description 12/01/2021 Lab Requisition [facility] [address] [place] [address] Alverto Virgen MD [address] [place] [address] [place] [address] Social History Tobacco Use Types Packs/Day Years [...] Platelets 1+(A) None 12/01/2021 11:24 AM CDT [facility] Blood BLOOD SPECIMEN / Unknown Venipuncture / Unknown 12/01/2021 4:00 AM CDT 12/01/2021 9:28 AM CDT us Alverto Virgen MD LAB - HEMATOLOGY ORDERABL ES Final Result [facility] [address] [place] [address] * (ABNORMAL) CBC WITH DIFFERENTIAL (12/01/2021 4:00 AM CDT) WBC 7.7 4.4 - 10.7 x10E9/L 12/01/2021 10:46 AM CDT [facility] WBC Corrected 12/01/2021 10:46 AM CDT [facility] RBC 3.99 3.80 - 5.40 x10E12/L 12/01/2021 10:46 AM CDT [facility] Hemoglobin 10.7(L) 12.0 - 17.6 gm/dL 12/01/2021 10:46 AM CDT [facility] Hematocrit 34.8(L) 35.2 - 51.7 % 12/01/2021 10:46 AM CDT [facility] MCV 87.2 80.7 - 98.3 fl 12/01/2021 10:46 AM CDT [facility] MCH 26.8 26.7 - 34.0 pg 12/01/2021 10:46 AM CDT [facility] MCHC 30.7(L) 30.8 - 35.9 gm/dL 12/01/2021 10:46 AM CDT [facility] Platelet Count 385 153 - 416 x10E9/L 12/01/2021 10:[facility] RDW-CV 13.3 12.1 - 14.9 % 12/01/2021 10:46 AM CDT [facility] MPV 10.5 9.4 - 12.9 fl 12/01/2021 10:46 AM CDT [facility] Neutrophils % 58.3 44.0 - 73.0 % 12/01/2021 10:46 AM CDT [facility] Lymphocytes % 29.2 20.0 - 43.0 % 12/01/2021 10:46 AM CDT [facility] Monocytes % 9.9 5.0 - 13.0 % 12/01/2021 10:46 AM CDT [facility] Eosinophils % 1.9 0.0 - 6.0 % 12/01/2021 10:46 AM CDT [facility] Basophils % 0.4 0.0 - 2.0 % 12/01/2021 10:46 AM CDT [facility] Immature Granulocytes 0.3 0 - 1 % 12/01/2021 10:46 AM CDT [facility] Neutrophil Absolute 4.50 2.01 - 7.14 x10E9/L 12/01/2021 10:46 AM CDT [facility] Lymphocytes Absolute 2.25 1.07 - 3.94 x10E9/L 12/01/2021 10:46 AM CDT [facility] Monocytes Absolute 0.76 0.26 - 1.07 x10E9/L 12/01/2021 10:46 AM CDT [facility] Eosinophils Absolute 0.15 0 - 0.47 x10E9/L 12/01/2021 10:46 AM CDT [facility] Basophils Absolute 0.03 0 - 0.08 x10E9/L 12/01/2021 10:46 AM CDT [facility] Immature Granulocytes Absolute 0.02 0.00 - 0.06 x10E9/L 12/01/2021 10:46 AM CDT [facility] nRBC Auto 0 /100 WBC 12/01/2021 10:46 AM T [facility] Blood BLOOD SPECIMEN / Unknown Venipuncture / Unknown 12/01/2021 4:00 AM CDT 12/01/2021 9:28 AM CDT us Alverto Virgen MD LAB - HEMATOLOGY ORDERABL ES Final Result [facility] [address] [place] [address] * (ABNORMAL) COMPREHENSIVE METABOLIC PANEL (12/01/2021 4:00 AM CDT) Glucose 96 70 - 105 mg/dL 12/01/2021 10:54 AM CDT [facility] Sodium 142 136 - 145 mmol/L 12/01/2021 10:54 AM CDT [facility] Potassium 4.9 3.5 - 5.1 mmol/L 12/01/2021 10:54 AM CDT [facility] Chloride 103 98 - 107 mmol/L 12/01/2021 10:54 AM CDT [facility] CO2 24 23 - 31 mmol/L 12/01/2021 10:54 AM CDT [facility] Calcium 10.6(H) 8.4 - 10.4 mg/dL 12/01/2021 10:54 AM T [facility] Anion Gap 15 8 - 18 mmol/L 12/01/2021 10:54 AM CDT [facility] BUN 31(H) 8.9 - 20.6 mg/dL 12/01/2021 10:54 AM CDT [facility] Creatinine 1.06 0.72 - 1.25 mg/dL 12/01/2021 10:54 AM CDT [facility] Alkaline Phosphatase 132 40 - 150 U/L 12/01/2021 10:54 AM CDT [facility] ALT 21 0 - 61 U/L 12/01/2021 10:54 AM CDT [facility] AST 12 5 - 34 U/L 12/01/2021 10:54 AM CDT [facility] Protein Total 7.6 6.4 - 8.3 gm/dL 12/01/2021 10:54 AM CDT [facility] Albumin 3.7 3.5 - 5.2 gm/dL 12/01/2021 10:54 AM CDT [facility] Bilirubin Total 0.3 0.2 - 1.2 mg/dL 12/01/2021 10:54 AM CDT [facility] eGFR by CKD-EPI >90 >=90 mL/min/1.7 3 m2 12/01/2021 10:54 AM CDT [facility] Blood BLOOD SPECIMEN / Unknown Venipuncture / Unknown 12/01/2021 4:00 AM CDT 12/01/2021 9:28 AM CDT us Alverto Virgen MD LAB - CHEMISTRY ORDERABLE S Final Result Performing Organization Address City/State/[facility] de Phone Number [facility] [address] [place] [address] documented in this encounter Visit Diagnoses Not on filedocumented in this encounter Care Teams Child Protective Services Specialist Relationship Specialty Start Date End Date Pepe Martel MD [address] [place] [address] [address] [place] [address] PCP - General 08/14/16 documented as of this encounter
--- OUTSIDE RECORDS SUMMARY | 2024-12-28 17:51 | XMS_ITS | Encounter Summary ---
Author Organization [facility] Address [address] [place] [address] Care Team Providers Care Hob Grinder Name Role Phone Pepe Martel MD Primary Care Provider [phone] Encounter Details Date Type Department Care Team (Late st Contact Info) Description 11/03/2021 Lab Requisition [facility] [address] [place] [address] [place] [address] [place] [address] Social History Tobacco Use Types Packs/Day Years [...] CBC WITH DIFFERENTIAL (11/03/2021 4:02 AM CDT) [facility] Signature WBC 6.6 4.4 - 10.7 x10E9/L 11/03/2021 [...] 30.8 - 35.9 gm/dL 11/03/2021 10:04 AM [facility] Platelet Count 374 153 - 416 x10E9/L 11/03/2021 10:04 AM [facility] RDW-CV 13.8 12.1 - 14.9 % 11/03/2021 10:04 AM [facility] MPV 10.3 9.4 - 12.9 fl 11/03/2021 10:04 AM [facility] Neutrophils % 57.3 44.0 - 73.0 % 11/03/2021 10:04 AM [facility] Lymphocytes % 29.1 20.0 - 43.0 % 11/03/2021 10:04 AM [facility] Monocytes % 8.9 5.0 - 13.0 % 11/03/2021 10:04 AM [facility] Eosinophils % 4.1 0.0 - 6.0 % 11/03/2021 10:04 AM [facility] Basophils % 0.3 0.0 - 2.0 % 11/03/2021 10:04 AM [facility] Immature Granulocytes 0.3 0 - 1 % 11/03/2021 10:04 AM [facility] Neutrophil Absolute 3.81 2.01 - 7.14 x10E9/L 11/03/2021 10:04 AM [facility] Lymphocytes Absolute 1.93 1.07 - 3.94 x10E9/L 11/03/2021 10:04 AM [facility] Monocytes Absolute 0.59 0.26 - 1.07 x10E9/L 11/03/2021 10:04 AM [facility] Eosinophils Absolute 0.27 0 - 0.47 x10E9/L 11/03/2021 10:04 AM [facility] Basophils Absolute 0.02 0 - 0.08 x10E9/L 11/03/2021 10:04 AM [facility] Immature Granulocytes Absolute 0.02 0.00 - 0.06 x10E9/L 11/03/2021 10:04 AM [facility] nRBC Auto 0 /100 WBC 11/03/2021 10:04 AM [facility] Blood BLOOD SPECIMEN / Unknown Venipuncture / Unknown 11/03/2021 4:02 AM CDT 11/03/2021 8:58 AM CDT us Vinicio Quintanilla MD LAB - HEMATOLOGY ORDERABLES Giselle adams Result [facility] [address] [place] [address] * (ABNORMAL) COMPREHENSIVE METABOLIC PANEL (11/03/2021 4:02 AM CDT) Glucose 108(H) 70 - 105 mg/dL 11/03/2021 10:27 AM CDT [facility] Sodium 140 136 - 145 mmol/L 11/03/2021 10:27 AM CDT [facility] Potassium 4.3 3.5 - 5.1 mmol/L 11/03/2021 10:27 AM CDT [facility] Chloride 103 98 - 107 mmol/L 11/03/2021 10:27 AM CDT [facility] CO2 25 23 - 31 mmol/L 11/03/2021 10:27 AM CDT [facility] Calcium 10.6(H) 8.4 - 10.4 mg/dL 11/03/2021 10:27 AM CDT [facility] Anion Gap 12 8 - 18 mmol/L 11/03/2021 10:27 AM CDT [facility] BUN 32(H) 8.9 - 20.6 mg/dL 11/03/2021 10:27 AM CDT [facility] Creatinine 1.09 0.72 - 1.25 mg/dL 11/03/2021 10:27 AM CDT [facility] Alkaline Phosphatase 132 40 - 150 U/L 11/03/2021 10:27 AM CDT [facility] ALT 18 0 - 61 U/L 11/03/2021 10:27 AM CDT [facility] AST 11 5 - 34 U/L 11/03/2021 10:27 AM CDT [facility] Protein Total 7.3 6.4 - 8.3 gm/dL 11/03/2021 10:27 AM CDT [facility] Albumin 3.7 3.5 - 5.2 gm/dL 11/03/2021 10:27 AM CDT [facility] Bilirubin Total 0.2 0.2 - 1.2 mg/dL 11/03/2021 10:27 AM CDT [facility] eGFR by CKD-EPI >90 >=90 mL/min/1.7 3 m2 11/03/2021 10:27 AM CDT [facility] Blood BLOOD SPECIMEN / Unknown Venipuncture / Unknown 11/03/2021 4:02 AM CDT 11/03/2021 8:58 AM CDT us Vinicio Quintanilla MD LAB - CHEMISTRY ORDERABLES Final Result [facility] [address] [place] [address] documented in this encounter Visit Diagnoses Not on filedocumented in this encounter Care Teams Hob Grinder Relationship Specialty Start Date End Date ePpe Martel MD [address] [place] [address] PCP - General 08/14/16 documented as of this encounter
--- OUTSIDE RECORDS SUMMARY | 2024-12-28 17:51 | XMS_ITS | Encounter Summary ---
Author Organization [facility] Address [address] [place] [address] Care Team Providers Care Php Architect Name Role Phone Pepe Martel MD Primary Care Provider [phone] Encounter Details Date Type Department Care Team (Late st Contact Info) Description 10/30/2021 Lab Requisition [facility] [address] [place] [address] [place] [address] [place] [address] Social History Tobacco Use Types Packs/Day Years [...] 30.8 - 35.9 gm/dL 10/30/2021 9:54 AM [facility] Platelet Count 414 153 - 416 x10E9/L 10/30/2021 9:54 AM [facility] RDW-CV 13.7 12.1 - 14.9 % 10/30/2021 9:54 AM [facility] MPV 10.6 9.4 - 12.9 fl 10/30/2021 9:54 AM [facility] Neutrophils % 52.9 44.0 - 73.0 % 10/30/2021 9:54 AM [facility] Lymphocytes % 33.9 20.0 - 43.0 % 10/30/2021 9:54 AM [facility] Monocytes % 8.6 5.0 - 13.0 % 10/30/2021 9:54 AM [facility] Eosinophils % 3.9 0.0 - 6.0 % 10/30/2021 9:54 AM [facility] Basophils % 0.5 0.0 - 2.0 % 10/30/2021 9:54 AM [facility] Immature Granulocytes 0.2 0 - 1 % 10/30/2021 9:54 AM [facility] Neutrophil Absolute 3.44 2.01 - 7.14 x10E9/L 10/30/2021 9:54 AM [facility] Lymphocytes Absolute 2.20 1.07 - 3.94 x10E9/L 10/30/2021 9:54 AM [facility] Monocytes Absolute 0.56 0.26 - 1.07 x10E9/L 10/30/2021 9:54 AM [facility] Eosinophils Absolute 0.25 0 - 0.47 x10E9/L 10/30/2021 9:54 AM [facility] Basophils Absolute 0.03 0 - 0.08 x10E9/L 10/30/2021 9:54 AM [facility] Immature Granulocytes Absolute 0.01 0.00 - 0.06 x10E9/L 10/30/2021 9:54 AM [facility] nRBC Auto 0 /100 WBC 10/30/2021 9:54 AM [facility] Blood BLOOD SPECIMEN / Unknown Venipuncture / Unknown 10/30/2021 5:34 AM CDT 10/30/2021 9:46 AM CDT us Vinicio Quintanilla MD LAB - HEMATOLOGY ORDERABLES Giselle adams Result [facility] [address] [place] [address] * (ABNORMAL) COMPREHENSIVE METABOLIC PANEL (10/30/2021 5:34 AM CDT) Pathologist [facility] Glucose 122(H) 70 - 105 mg/dL 10/30/2021 10:16 AM CDT [facility] Sodium 141 136 - 145 mmol/L 10/30/2021 10:16 AM CDT [facility] Potassium 4.3 3.5 - 5.1 mmol/L 10/30/2021 10:16 AM CDT [facility] Chloride 104 98 - 107 mmol/L 10/30/2021 10:16 AM CDT [facility] CO2 24 23 - 31 mmol/L 10/30/2021 10:16 AM CDT [facility] Calcium 10.3 8.4 - 10.4 mg/dL 10/30/2021 10:16 AM CDT [facility] Anion Gap 13 8 - 18 mmol/L 10/30/2021 10:16 AM CDT [facility] BUN 30(H) 8.9 - 20.6 mg/dL 10/30/2021 10:16 AM CDT [facility] Creatinine 1.12 0.72 - 1.25 mg/dL 10/30/2021 10:16 AM CDT [facility] Alkaline Phosphatase 137 40 - 150 U/L 10/30/2021 10:16 AM CDT [facility] ALT 21 0 - 61 U/L 10/30/2021 10:16 AM CDT [facility] AST 12 5 - 34 U/L 10/30/2021 10:16 AM CDT [facility] Protein Total 7.5 6.4 - 8.3 gm/dL 10/30/2021 10:16 AM CDT [facility] Albumin 3.7 3.5 - 5.2 gm/dL 10/30/2021 10:16 AM CDT [facility] Bilirubin Total 0.2 0.2 - 1.2 mg/dL 10/30/2021 10:16 AM CDT [facility] eGFR by CKD-EPI 88(L) >=90 mL/min/1.7 3 m2 10/30/2021 10:16 AM CDT [facility] Blood BLOOD SPECIMEN / Unknown Venipuncture / Unknown 10/30/2021 5:34 AM CDT 10/30/2021 9:46 AM CDT us Vinicio Quintanilla MD LAB - CHEMISTRY ORDERABLES Final Result [facility] [address] [place] [address] documented in this encounter Visit Diagnoses Not on filedocumented in this encounter Care Teams Php Architect Relationship Specialty Start Date End Date Pepe Martel MD [address] [place] [address] [address] [place] [address] PCP - General 08/14/16 documented as of this encounter
[2024-12-28 18:23] LABS: Influenza A QL RT-PCR Negative (Negative); Influenza B QL RT-PCR Negative (Negative); RSV RNA, RT-PCR Negative (Negative); SARS-CoV-2 RNA PCR Negative (Negative)
[2024-12-28 19:37] VITALS: BP 103/82; PULSE 91; RESP 19; O2SAT 97
[2024-12-28 20:03] LABS: Hematocrit 42.2 % (42.0-52.0); Hemoglobin 13.0 g/dL (14.0-18.0); Immature Granulocyte Percent A 0.4 % (0-0.5); Lymphocytes Absolute Auto 0.65 K/mm3 (0.9-3.2); Mean Corpuscular HGB Conc 30.8 g/dl (32-36); Mean Corpuscular Hemoglobin 25.2 pg (26-34); Mean Corpuscular Volume 81.9 fl (80-100); Nucleated Red Blood Cells Absolute Auto 0.000 K/mm3 (0.0-0.012); Nucleated Red Blood Cells Perc 0.0 % (0.0-0.2); Platelet Count Result 358 k/mm3 (150-375); Red Blood Count 5.15 M/mm3 (4.6-6.20); White Blood Count 5.6 K/mm3 (4.5-10.0)
[2024-12-28 20:04] LABS: Alanine Aminotransferase 21 U/L (6-50); Albumin Level 4.0 g/dL (3.5-5.1); Alkaline Phosphatase 105 U/L (38-126); Anion Gap 7 mmol/L (4-12); Aspartate Amino Transferase 29 U/L (17-59); Bilirubin,Total 0.4 mg/dL (0.2-1.3); Blood Urea Nitrogen 11 mg/dL (9-20); Calcium 9.7 mg/dL (8.4-10.2); Carbon Dioxide 27 mmol/L (22-30); Chloride 102 mmol/L (98-107); Estimated CRCL calculation 98 ml/min; Estimated Glomerular Filt Rate > 60; Glucose 75 mg/dL (65-110); Potassium 4.3 mmol/L (3.4-5.0); Sodium 136 mmol/L (137-145); Total Protein 8.9 g/dL (6.3-8.2)
[2024-12-28 20:06] LABS: INR 1.2; Prothrombin Time 15.5 Seconds (11.1-14.7)
[2024-12-28 20:07] LABS: Partial Thromboplastin Time 26.4 Seconds (22.3-36.8)
[2024-12-28] MEDS: MEROPENEM 1 GM in SODIUM CHLORIDE 0.9% IV 100 ML 200 ML IVPB (22:25)
[2024-12-28 22:32] VITALS: BP 132/74; PULSE 90; RESP 29; O2SAT 98
[2024-12-28 23:11] VITALS: BMI 18.3
--- NOTE | 2024-12-28 23:11 | ADMGEN ---
This patient, Jaime Tyler Jr., was admitted to IMU Room 214-01. Patient/family oriented to hospital policies and general routines including ID bracelet, bed and alarms, visiting hours, pain management, procedures, bathroom and other care routines, personal items, smoking policy, room service/diet, and visiting hours. Information on how to activate the Rapid Response Team has been discussed. Patient/Family are encouraged to report perceived risks to care and to ask questions if they do not understand what they are told or what they should do.
[2024-12-28 23:13] VITALS: BP 132/74; PULSE 90; RESP 29; O2SAT 98
[2024-12-28] MEDS: AZITHROMYCIN IV 500 MG in SODIUM CHLORIDE 0.9% IV 250 ML IVPB (23:36)
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
--- NOTE | 2024-12-28 23:42 | WNDPHOTO ---
PHOTO ONLY - See Nursing Notes and/ or assessments for documentation.
[2024-12-28 23:45] LABS: MRSA (PCR) NOT DETECTED (NOT DETECTE)
--- NOTE | 2024-12-28 23:49 | WNDPHOTO ---
PHOTO ONLY - See Nursing Notes and/ or assessments for documentation.
[2024-12-29] VITALS (20 sets, daily range): BP systolic 109–136; BP diastolic 64–87; PULSE 56–123; RESP 20–32; TEMP 36.3–37; O2SAT 91–100; BMI 18.6
[2024-12-29] MEDS: VANCOMYCIN 1,250 MG/NS 250 ML 1,250 MG/250 ML BAG 166.67 MG IVPB (01:01)
[2024-12-29] MEDS: IPRATROPIUM 0.5 MG/ALBUTEROL SULFATE 2.5 MG AMPUL.NEB 3 ML INHALATION ×5 (01:10→19:58)
[2024-12-29] MEDS: SCOPOLAMINE 1 MG PATCH 1 PATCH TRANSDERM (01:15)
[2024-12-29] MEDS: SODIUM CHLORIDE 0.9% IV 1,000 ML 100 ML IV CONT (05:39)
[2024-12-29] MEDS: MEROPENEM 1 GM in SODIUM CHLORIDE 0.9% IV 100 ML 200 ML IVPB (05:39)
[2024-12-29 07:35] LABS: Hematocrit 40.0 % (42.0-52.0); Hemoglobin 12.6 g/dL (14.0-18.0); Mean Corpuscular HGB Conc 31.5 g/dl (32-36); Mean Corpuscular Hemoglobin 25.8 pg (26-34); Mean Corpuscular Volume 81.8 fl (80-100); Platelet Count Result 346 k/mm3 (150-375); Red Blood Count 4.89 M/mm3 (4.6-6.20); White Blood Count 4.3 K/mm3 (4.5-10.0)
[2024-12-29 07:55] LABS: Estimated CRCL calculation 96 ml/min; Estimated Glomerular Filt Rate > 60
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
[2024-12-29] MEDS: ASPIRIN 81 MG CHEWABLE TABLET FEED TUBE (09:17)
[2024-12-29] MEDS: DEXTROSE 50% 25 GM/50 ML SYRINGE IV PUSH (12:03)
[2024-12-29] MEDS: CEFEPIME 2 GM in SODIUM CHLORIDE 0.9% IV 50 ML 100 ML IVPB ×2 (14:20→21:07)
[2024-12-29] MEDS: DEXTROSE 5%/0.45% SOD CHL 1,000 ML 75 ML IV CONT (16:09)
[2024-12-29 19:22] LABS: Anion Gap 9 mmol/L (4-12); Blood Urea Nitrogen 11 mg/dL (9-20); Calcium 9.6 mg/dL (8.4-10.2); Carbon Dioxide 26 mmol/L (22-30); Chloride 103 mmol/L (98-107); Estimated CRCL calculation 104 ml/min; Estimated Glomerular Filt Rate > 60; Glucose 69 mg/dL (65-110); Potassium 4.8 mmol/L (3.4-5.0); Sodium 138 mmol/L (137-145)
[2024-12-29] MEDS: AZITHROMYCIN 500 MG TABLET FEED TUBE (21:07)
[2024-12-30] VITALS (21 sets, daily range): BP systolic 96–148; BP diastolic 70–89; PULSE 54–108; RESP 16–22; TEMP 36.3–36.9; O2SAT 97–100
[2024-12-30] MEDS: IPRATROPIUM 0.5 MG/ALBUTEROL SULFATE 2.5 MG AMPUL.NEB 3 ML INHALATION ×4 (01:14→21:50)
[2024-12-30] MEDS: DEXTROSE 5%/0.45% SOD CHL 1,000 ML 75 ML IV CONT (04:20)
[2024-12-30] MEDS: CEFEPIME 2 GM in SODIUM CHLORIDE 0.9% IV 50 ML 100 ML IVPB ×3 (05:29→21:01)
--- NOTE | 2024-12-30 08:16 | P.PNIM_ITS ---
Progress Note: A&P Assessment and Plan (1) Right lower lobe pneumonia: Qualifiers: Pneumonia type: due to unspecified organism Qualified Code(s): J18.9 - Pneumonia, unspecified organism Code(s): J18.9 - Pneumonia, unspecified organism Status: Acute Assessment and Plan: * Continue cefepime and azithromycin * MRSA PCR negative * Sputum gram stain and culture pending * 12/30 on R/a, vss, tele unremarkable, transfer to medical floor (2) Tracheocutaneous fistula following tracheostomy: Code(s): J95.04 - Tracheo-esophageal fistula following tracheostomy Status: Acute Assessment and Plan: * Continue trach mask with humidity (3) Hemoptysis: Code(s): R04.2 - Hemoptysis Status: Acute Assessment and Plan: * Likely related to pneumonia (4) Dysphagia: Qualifiers: Dysphagia type: unspecified Qualified Code(s): R13.10 - Dysphagia, unspecified Code(s): R13.10 - Dysphagia, unspecified Status: Acute Assessment and Plan: * Intolerance to TF possible due to acute infection * 12/30 trial of metoclopramide and resume TF at 30 mL/hr and increase to 60 mL/hr after 4 hours if tolerated Subjective Date/time seen: 12/30/24 08:16 Interval history: Continues with some bloody sputum. Had some milky discharge around trach last evening. Tube feedings held. Review of Systems Review of Systems: ROS unobtainable: Yes unobtainable due to medical condition Exam Narrative: HEENT: PERRL, sclerae nonicteric, pharyngeal mucosa pink and intact NECK: No JVD, old trach site intact CHEST: Coarse BS R>L, NL effort HEART: NL S1/S2, regular, no murmur ABDOMEN: BS+, soft, nontender, no mass, no bruits, G-tube site intact EXTREMITIES: No cyanosis, edema, or clubbing NEUROLOGIC: CN fairly symmetric to inspection MUSCULOSKELETAL: Increased tone throughout PSYCH: Drowsy, arouses easily, response to voice but does not follow commands Objective Data Vital Signs Vital Signs: Vital Signs - 24 hr 12/29/24 10:00 12/29/24 11:54 12/29/24 12:00 Temperature 97.7 F Pulse Rate 68 75 Respiratory Rate 21 H Blood Pressure 111/75 Pulse Oximetry 100 100 Oxygen Delivery High Flow Therapy with Tr Oxygen Flow Rate 0 Fraction of Inspired Oxygen 21 12/29/24 12:00 12/29/24 13:28 12/29/24 14:00 Temperature Pulse Rate 94 84 82 Respiratory Rate 24 H Blood Pressure Pulse Oximetry Oxygen Delivery Oxygen Flow Rate Fraction of Inspired Oxygen 12/29/24 16:00 12/29/24 16:00 12/29/24 16:00 Temperature 98.2 F Pulse Rate 73 66 Respiratory Rate 21 H Blood Pressure 136/87 Pulse Oximetry 96 100 Oxygen Delivery High Flow Therapy with Tr Oxygen Flow Rate 0 Fraction of Inspired Oxygen 21 12/29/24 18:00 12/29/24 19:36 12/29/24 20:00 Temperature 98.2 F Pulse Rate 64 78 Respiratory Rate 20 Blood Pressure 128/76 Pulse Oximetry 91 95 Oxygen Delivery High Flow Therapy with Tr Oxygen Flow Rate 0 Fraction of Inspired Oxygen 21 12/29/24 20:00 12/29/24 20:01 12/29/24 20:12 Temperature Pulse Rate 61 56 L 69 Respiratory Rate 20 20 Blood Pressure Pulse Oximetry Oxygen Delivery Oxygen Flow Rate Fraction of Inspired Oxygen 12/29/24 20:12 12/29/24 22:00 12/30/24 00:00 Temperature Pulse Rate 69 83 Respiratory Rate 20 Blood Pressure Pulse Oximetry 97 98 Oxygen Delivery High Flow Therapy with Tr High Flow Therapy with Tr Oxygen Flow Rate 35 0 Fraction of Inspired Oxygen 21 21 12/30/24 00:00 12/30/24 00:06 12/30/24 01:14 Temperature 97.4 F L Pulse Rate 74 70 99 Respiratory Rate 22 H 20 Blood Pressure 132/85 Pulse Oximetry 99 Oxygen Delivery Oxygen Flow Rate Fraction of Inspired Oxygen 12/30/24 01:25 12/30/24 02:00 12/30/24 03:56 Temperature 98.4 F Pulse Rate 99 73 80 Respiratory Rate 20 20 Blood Pressure 148/89 H Pulse Oximetry 99 Oxygen Delivery Oxygen Flow Rate Fraction of Inspired Oxygen 12/30/24 04:00 12/30/24 04:00 12/30/24 06:00 Temperature Pulse Rate 73 54 L Respiratory Rate Blood Pressure Pulse Oximetry 100 Oxygen Delivery High Flow Therapy with Tr Oxygen Flow Rate 0 Fraction of Inspired Oxygen 21 12/30/24 07:38 Temperature 97.7 F Pulse Rate 108 H Respiratory Rate 22 H Blood Pressure 102/77 Pulse Oximetry 100 Oxygen Delivery Oxygen Flow Rate Fraction of Inspired Oxygen Intake/Output Intake/Output: Intake & Output 12/27/24 12/28/24 12/29/24 12/30/24 23:59 23:59 23:59 23:59 Intake Total 100 1040 963.7 Output Total 370 Balance 100 1040 593.7 Meds/Results Medications: Active Medications Generic Name Dose Route Start Last Admin Trade Name Freq PRN Reason Stop Dose Admin Albuterol/Ipratropium 3 ml 12/29/24 02:00 12/30/24 01:14 Ipratropium 0.5 Mg/Albuterol Sulfate 2.5 Mg Ampul.Neb 3 Ml INHALATION 3 ml Q6HRT JESSA Administration Aspirin 81 mg 12/29/24 09:00 12/29/24 09:17 Aspirin 81 Mg Chewable Tablet FEED TUBE 81 mg DAILY JESSA Administration Azithromycin 500 mg 12/29/24 21:00 12/29/24 21:07 Azithromycin 500 Mg Tablet FEED TUBE 01/01/25 21:01 500 mg QHS JESSA Administration Bisacodyl 10 mg 12/29/24 00:57 Bisacodyl 10 Mg Suppository RECTAL DAILY PRN Constipation Dextrose 12.5 gm 12/29/24 11:56 12/29/24 12:03 Dextrose 50% 25 Gm/50 Ml Syringe IV PUSH 12.5 gm PRN PRN Administration Hypoglycemia Protocol Glucose 15 gm 12/29/24 11:56 Glucose Oral Gel 15 Gm Of Glucse In 37.5 Gm Tube PO PRN PRN Hypoglycemia Protocol Cefepime HCl 2 gm/ Sodium 50 mls @ 100 mls/hr 12/29/24 14:00 12/30/24 08:01 Chloride IVPB Infused Q8H JESSA Infusion Dextrose 1,000 mls @ 100 mls/hr 12/29/24 11:56 Dextrose 5% 1,000 Ml IVPB PRN PRN Hypoglycemia Protocol Dextrose/Sodium Chloride 1,000 mls @ 75 mls/hr 12/29/24 15:20 12/30/24 04:20 Dextrose 5% Sodium Chloride 0.45% IV CONT 75 mls/hr .[id number] JESSA Administration Polyethylene Glycol 17 gm 12/29/24 00:51 Polyethylene Glycol 3350 17 Gm Powd.Pack FEED TUBE DAILY PRN Constipation Scopolamine 1 patch 12/29/24 00:55 12/29/24 01:15 Scopolamine 1 Mg Patch TRANSDERM 1 patch Q72H JESSA Administration Radiology Results: ITS Impressions Chest X-Ray 12/28/24 17:39 IMPRESSION: Examination limited by significant rotation. Segmental consolidation in the medial right lower lung, which may represent atelectasis, infection or aspiration, depending on the clinical context. Recommend radiographic follow-up to demonstrate resolution. Chest CT 12/29/24 10:59 IMPRESSION: 1. Evaluation is significantly limited as detailed above. Consider a follow-up study with contrast for further assessment. 2. Moderate-sized consolidation with air bronchograms in the right upper lobe which extends from the right hilum to the pleura. In addition, there is a moderate to large consolidation with air bronchograms in the right lower lobe which extends from the right hilum to the pleura.The findings may be secondary to multilobar pneumonia, however, a malignant process is possible. A short-term follow-up chest CT in 3-5 days following treatment is recommended. Consider a PET/CT. 3. Possible enlarged right hilar and subcarinal lymph nodes, however, evaluation is limited due to the lack of contrast administration. 4.The right mainstem bronchus is partially opacified. The finding is nonspecific. Correlate clinically. Labs Labs: Laboratory Results - last 24 hr 12/29/24 12/29/24 12/29/24 07:03 11:44 12:33 Sodium 138 Potassium 4.8 Chloride 103 Carbon Dioxide 26 Anion Gap 9 BUN 11 Creatinine 0.60 L Estim Creat Clear Calc 104 Estimated GFR > 60 Glucose 69 POC Capillary Glucose 60 L 108 H Calcium 9.6 12/29/24 12/30/24 12/30/24 18:15 00:18 05:49 Sodium Potassium Chloride Carbon Dioxide Anion Gap BUN Creatinine Estim Creat Clear Calc Estimated GFR Glucose POC Capillary Glucose 82 75 84 Calcium
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
[2024-12-30] MEDS: ASPIRIN 81 MG CHEWABLE TABLET FEED TUBE (09:04)
[2024-12-30] MEDS: METOCLOPRAMIDE HCL INJ 10 MG/2 ML VIAL IV PUSH ×2 (11:43→17:01)
--- NOTE | 2024-12-30 13:31 | PC.NURSE ---
This patient, Jaime Tyler Jr., was transferred to [facility] on 12/30/24 at 1320. Personal belongings sent with patient. Report given to Lorenza PARRA. Appropriate documentation sent with patient. Left message on POA's phone that patient had moved rooms.
[2024-12-30] MEDS: AZITHROMYCIN 500 MG TABLET FEED TUBE (21:01)
[2024-12-31] VITALS (17 sets, daily range): BP systolic 96–124; BP diastolic 61–68; PULSE 61–106; RESP 16–20; TEMP 36.9–37.2; O2SAT 95–100
[2024-12-31] MEDS: METOCLOPRAMIDE HCL INJ 10 MG/2 ML VIAL IV PUSH ×4 (00:47→17:28)
[2024-12-31] MEDS: IPRATROPIUM 0.5 MG/ALBUTEROL SULFATE 2.5 MG AMPUL.NEB 3 ML INHALATION ×4 (02:07→21:26)
--- NOTE | 2024-12-31 03:48 | PCRCNOTE ---
Patient seen on AirVo high-flow via trach collar set to 30 L/min * 21%; open stoma with no trach tube in place; large amount of oral secretions; clear, thick, bloody being expelled through the stoma during intermittently effective coughs, although no swallowing observed at this time but oral suctioned for the same bloody secretions; highly suspect aspiration continously, due to history of same, dysphagia and family observed choking while patient is vomiting. He is unable to protect his airway; nonverbal; will suggest continuous monitoring of SpO2 and heart rate, for indication of need for intervention such as NT suction. SpO2: 98-100%
[2024-12-31] MEDS: CEFEPIME 2 GM in SODIUM CHLORIDE 0.9% IV 50 ML 100 ML IVPB ×3 (05:27→22:53)
--- NOTE | 2024-12-31 11:08 | P.PNIM_ITS ---
Progress Note: A&P Assessment and Plan (1) Right lower lobe pneumonia: Qualifiers: Pneumonia type: due to unspecified organism Qualified Code(s): J18.9 - Pneumonia, unspecified organism Code(s): J18.9 - Pneumonia, unspecified organism Status: Acute Assessment and Plan: * Continue cefepime and azithromycin * MRSA PCR negative * Sputum gram stain and culture pending * 12/30 on R/a, vss, tele unremarkable, transfer to medical floor 12/31/24: * Continuing to wait on sputum gram stain and culture. * Stable respiratory status. * Continue IV Abx (2) Tracheocutaneous fistula following tracheostomy: Code(s): J95.04 - Tracheo-esophageal fistula following tracheostomy Status: Acute Assessment and Plan: * Continue trach mask with humidity (3) Hemoptysis: Code(s): R04.2 - Hemoptysis Status: Acute Assessment and Plan: * Likely related to pneumonia 12/31/24: * No further Hemoptysis present. (4) Dysphagia: Qualifiers: Dysphagia type: unspecified Qualified Code(s): R13.10 - Dysphagia, unspecified Code(s): R13.10 - Dysphagia, unspecified Status: Acute Assessment and Plan: * Intolerance to TF possible due to acute infection * 12/30 trial of metoclopramide and resume TF at 30 mL/hr and increase to 60 mL/hr after 4 hours if tolerated 12/31/24: * Pt tolerating increased dose of 60 ml/hr without residual. We will continue this rate and associated Free water flushes. Time Spent With Patient Time with patient: 15 - 25 minutes Subjective Date/time seen: 12/31/24 11:08 Interval history: This non-verbal pt is examined at the bedside during this hospitalization for PNA. He appears to be sleeping without difficulty and he does not appear to be in any acute distress. I am told by the RN that he was able to tolerate the increased TF dose and is now at goal. Review of Systems Review of Systems: ROS unobtainable: Yes unobtainable due to medical condition Exam Narrative: HEENT: PERRL, sclerae nonicteric, pharyngeal mucosa pink and intact NECK: No JVD, old trach site intact CHEST: Coarse BS throughout all wolfe. Trach collar in place. HEART: NL S1/S2, regular, no murmur ABDOMEN: BS+, soft, nontender, no mass, no bruits, G-tube site intact without any drainage from insertion site. EXTREMITIES: No cyanosis, edema, or clubbing NEUROLOGIC: No definite focal abnormalities. MUSCULOSKELETAL: Spastic paralysis/contracture present. PSYCH: Unable to determine, does not follow commands. Objective Data Vital Signs Vital Signs: Vital Signs - 24 hr 12/30/24 11:37 12/30/24 13:38 12/30/24 13:50 Temperature Pulse Rate 64 Respiratory Rate 18 20 20 Blood Pressure 96/70 L Pulse Oximetry 98 Oxygen Delivery Oxygen Flow Rate Fraction of Inspired Oxygen 12/30/24 14:00 12/30/24 14:00 12/30/24 20:00 Temperature 97.5 F L Pulse Rate 68 79 Respiratory Rate 20 16 Blood Pressure 119/87 Pulse Oximetry 99 97 99 Oxygen Delivery High Flow Therapy with Tr High Flow Therapy with Tr Oxygen Flow Rate 30 2 Fraction of Inspired Oxygen 21 12/30/24 22:00 12/30/24 22:00 12/30/24 22:41 Temperature 98.2 F Pulse Rate 97 97 86 Respiratory Rate 18 18 16 Blood Pressure 117/83 Pulse Oximetry 98 99 Oxygen Delivery High Flow Therapy with Tr Oxygen Flow Rate 30 Fraction of Inspired Oxygen 21 12/31/24 02:08 12/31/24 02:19 12/31/24 04:00 Temperature Pulse Rate 90 79 85 Respiratory Rate 18 16 Blood Pressure Pulse Oximetry Oxygen Delivery Oxygen Flow Rate Fraction of Inspired Oxygen 12/31/24 06:00 12/31/24 08:00 12/31/24 08:00 Temperature 98.4 F Pulse Rate 71 87 Respiratory Rate 16 Blood Pressure 124/63 Pulse Oximetry 95 98 Oxygen Delivery High Flow Therapy with Tr Oxygen Flow Rate 0 Fraction of Inspired Oxygen 21 12/31/24 09:00 12/31/24 09:00 12/31/24 09:09 Temperature Pulse Rate 61 70 Respiratory Rate 16 16 Blood Pressure Pulse Oximetry 98 Oxygen Delivery High Flow Therapy with Tr Oxygen Flow Rate 30 Fraction of Inspired Oxygen 21 Intake/Output Intake/Output: Intake & Output 12/28/24 12/29/24 12/30/24 12/31/24 23:59 23:59 23:59 23:59 Intake Total 100 1040 1063.7 50 Output Total 570 600 Balance 100 1040 493.7 -550 Meds/Results Medications: Active Medications Generic Name Dose Route Start Last Admin Trade Name Freq PRN Reason Stop Dose Admin Albuterol/Ipratropium 3 ml 12/29/24 02:00 12/31/24 08:59 Ipratropium 0.5 Mg/Albuterol Sulfate 2.5 Mg Ampul.Neb 3 Ml INHALATION 3 ml Q6HRT JESSA Administration Azithromycin 500 mg 12/29/24 21:00 12/30/24 21:01 Azithromycin 500 Mg Tablet FEED TUBE 01/01/25 21:01 500 mg QHS JESSA Administration Bisacodyl 10 mg 12/29/24 00:57 Bisacodyl 10 Mg Suppository RECTAL DAILY PRN Constipation Dextrose 12.5 gm 12/29/24 11:56 12/29/24 12:03 Dextrose 50% 25 Gm/50 Ml Syringe IV PUSH 12.5 gm PRN PRN Administration Hypoglycemia Protocol Glucose 15 gm 12/29/24 11:56 Glucose Oral Gel 15 Gm Of Glucse In 37.5 Gm Tube PO PRN PRN Hypoglycemia Protocol Cefepime HCl 2 gm/ Sodium 50 mls @ 100 mls/hr 12/29/24 14:00 12/31/24 05:57 Chloride IVPB Infused Q8H JESSA Infusion Dextrose 1,000 mls @ 100 mls/hr 12/29/24 11:56 Dextrose 5% 1,000 Ml IVPB PRN PRN Hypoglycemia Protocol Metoclopramide HCl 10 mg 12/30/24 12:00 12/31/24 05:27 Metoclopramide Hcl Inj 10 Mg/2 Ml Vial IV PUSH 10 mg Q6HR JESSA Administration Polyethylene Glycol 17 gm 12/29/24 00:51 Polyethylene Glycol 3350 17 Gm Powd.Pack FEED TUBE DAILY PRN Constipation Scopolamine 1 patch 12/29/24 00:55 12/29/24 01:15 Scopolamine 1 Mg Patch TRANSDERM 1 patch Q72H JESAS Administration Radiology Results: ITS Impressions Chest X-Ray 12/28/24 17:39 IMPRESSION: Examination limited by significant rotation. Segmental consolidation in the medial right lower lung, which may represent atelectasis, infection or aspiration, depending on the clinical context. Recommend radiographic follow-up to demonstrate resolution. Chest CT 12/29/24 10:59 IMPRESSION: 1. Evaluation is significantly limited as detailed above. Consider a follow-up study with contrast for further assessment. 2. Moderate-sized consolidation with air bronchograms in the right upper lobe which extends from the right hilum to the pleura. In addition, there is a moderate to large consolidation with air bronchograms in the right lower lobe which extends from the right hilum to the pleura.The findings may be secondary to multilobar pneumonia, however, a malignant process is possible. A short-term follow-up chest CT in 3-5 days following treatment is recommended. Consider a PET/CT. 3. Possible enlarged right hilar and subcarinal lymph nodes, however, evaluation is limited due to the lack of contrast administration. 4.The right mainstem bronchus is partially opacified. The finding is nonspecific. Correlate clinically. Abdomen X-Ray 12/30/24 09:22 Impression: 1: Fecal impaction of the rectum with moderate gas in the colon. Labs Labs: Laboratory Results - last 24 hr 12/30/24 12/30/24 12/30/24 11:25 18:07 22:39 POC Capillary Glucose 75 80 99 12/31/24 12/31/24 00:37 06:17 POC Capillary Glucose 108 H 77 Quality VTE Prophylaxis VTE prophylaxis: mechanical ordered
--- NOTE | 2024-12-31 14:42 | WPDGIPROGNO ---
Progress Note: A&P Assessment and Plan (1) Dysphagia: Qualifiers: Dysphagia type: unspecified Qualified Code(s): R13.10 - Dysphagia, unspecified Code(s): R13.10 - Dysphagia, unspecified Status: Acute Assessment and Plan: now tolerating tube feeding at goal no need to replace it continue with supportive care will follow as needed (2) History of gastrostomy tube placement: Status: Acute (3) Nausea and vomiting: Qualifiers: Vomiting type: unspecified Qualified Code(s): R11.2 - Nausea with vomiting, unspecified Code(s): R11.2 - Nausea with vomiting, unspecified Status: Acute (4) Pneumonia: Qualifiers: Laterality: right Lung location: lower lobe of lung Pneumonia type: due to unspecified organism Qualified Code(s): J18.9 - Pneumonia, unspecified organism Code(s): J18.9 - Pneumonia, unspecified organism Status: Acute (5) Paraplegia: Code(s): G82.20 - Paraplegia, unspecified Status: Acute Subjective Date/time seen: 12/31/24 14:42 Interval history: tube feeding at goal 60 ml/h and tolerating Review of Systems Review of Systems: All systems reviewed & are unremarkable except as noted in HPI and below Exam Narrative: HEENT: PERRL, sclerae nonicteric, pharyngeal mucosa pink and intact NECK: No JVD, old trach site intact CHEST: Coarse BS R>L, NL effort HEART: NL S1/S2, regular, no murmur ABDOMEN: BS+, soft, nontender, no mass, no bruits, G-tube site intact- dark discoloration but working EXTREMITIES: No cyanosis, edema, or clubbing NEUROLOGIC: chronic paraplegia MUSCULOSKELETAL: Increased tone throughout PSYCH: Drowsy, arouses easily, response to voice but does not follow commands Objective Data Vital Signs Vital Signs: Vital Signs - 24 hr 12/30/24 20:00 12/30/24 22:00 12/30/24 22:00 Temperature Pulse Rate 79 97 97 Respiratory Rate 16 18 18 Blood Pressure Pulse Oximetry 99 98 Oxygen Delivery High Flow Therapy with Tr High Flow Therapy with Tr Oxygen Flow Rate 2 30 Fraction of Inspired Oxygen 21 21 12/30/24 22:41 12/31/24 02:08 12/31/24 02:19 Temperature 98.2 F Pulse Rate 86 90 79 Respiratory Rate 16 18 16 Blood Pressure 117/83 Pulse Oximetry 99 Oxygen Delivery Oxygen Flow Rate Fraction of Inspired Oxygen 12/31/24 04:00 12/31/24 06:00 12/31/24 08:00 Temperature 98.4 F Pulse Rate 85 71 87 Respiratory Rate 16 Blood Pressure 124/63 Pulse Oximetry 95 Oxygen Delivery Oxygen Flow Rate Fraction of Inspired Oxygen 12/31/24 08:00 12/31/24 09:00 12/31/24 09:00 Temperature Pulse Rate 61 Respiratory Rate 16 Blood Pressure Pulse Oximetry 98 98 Oxygen Delivery High Flow Therapy with Tr High Flow Therapy with Tr Oxygen Flow Rate 0 30 Fraction of Inspired Oxygen 21 21 12/31/24 09:09 12/31/24 12:00 12/31/24 13:58 Temperature Pulse Rate 70 79 102 H Respiratory Rate 16 20 Blood Pressure 98/68 L Pulse Oximetry 98 Oxygen Delivery Oxygen Flow Rate Fraction of Inspired Oxygen 12/31/24 14:29 12/31/24 14:38 Temperature Pulse Rate 100 101 H Respiratory Rate 18 18 Blood Pressure Pulse Oximetry Oxygen Delivery Oxygen Flow Rate Fraction of Inspired Oxygen Intake/Output Intake/Output: Intake & Output 12/28/24 12/29/24 12/30/24 12/31/24 23:59 23:59 23:59 23:59 Intake Total 100 1040 1063.7 100 Output Total 570 600 Balance 100 1040 493.7 -500 Meds/Results Medications: Active Medications Generic Name Dose Route Start Last Admin Trade Name Freq PRN Reason Stop Dose Admin Albuterol/Ipratropium 3 ml 12/29/24 02:00 12/31/24 14:29 Ipratropium 0.5 Mg/Albuterol Sulfate 2.5 Mg Ampul.Neb 3 Ml INHALATION 3 ml Q6HRT JESSA Administration Azithromycin 500 mg 12/29/24 21:00 12/30/24 21:01 Azithromycin 500 Mg Tablet FEED TUBE 01/01/25 21:01 500 mg QHS JESSA Administration Bisacodyl 10 mg 12/29/24 00:57 Bisacodyl 10 Mg Suppository RECTAL DAILY PRN Constipation Dextrose 12.5 gm 12/29/24 11:56 12/29/24 12:03 Dextrose 50% 25 Gm/50 Ml Syringe IV PUSH 12.5 gm PRN PRN Administration Hypoglycemia Protocol Glucose 15 gm 12/29/24 11:56 Glucose Oral Gel 15 Gm Of Glucse In 37.5 Gm Tube PO PRN PRN Hypoglycemia Protocol Cefepime HCl 2 gm/ Sodium 50 mls @ 100 mls/hr 12/29/24 14:00 12/31/24 14:19 Chloride IVPB Infused Q8H JESSA Infusion Dextrose 1,000 mls @ 100 mls/hr 12/29/24 11:56 Dextrose 5% 1,000 Ml IVPB PRN PRN Hypoglycemia Protocol Metoclopramide HCl 10 mg 12/30/24 12:00 12/31/24 13:34 Metoclopramide Hcl Inj 10 Mg/2 Ml Vial IV PUSH 10 mg Q6HR JESSA Administration Polyethylene Glycol 17 gm 12/29/24 00:51 Polyethylene Glycol 3350 17 Gm Powd.Pack FEED TUBE DAILY PRN Constipation Scopolamine 1 patch 12/29/24 00:55 12/29/24 01:15 Scopolamine 1 Mg Patch TRANSDERM 1 patch Q72H JESSA Administration Radiology Results: ITS Impressions Chest X-Ray 12/28/24 17:39 IMPRESSION: Examination limited by significant rotation. Segmental consolidation in the medial right lower lung, which may represent atelectasis, infection or aspiration, depending on the clinical context. Recommend radiographic follow-up to demonstrate resolution. Chest CT 12/29/24 10:59 IMPRESSION: 1. Evaluation is significantly limited as detailed above. Consider a follow-up study with contrast for further assessment. 2. Moderate-sized consolidation with air bronchograms in the right upper lobe which extends from the right hilum to the pleura. In addition, there is a moderate to large consolidation with air bronchograms in the right lower lobe which extends from the right hilum to the pleura.The findings may be secondary to multilobar pneumonia, however, a malignant process is possible. A short-term follow-up chest CT in 3-5 days following treatment is recommended. Consider a PET/CT. 3. Possible enlarged right hilar and subcarinal lymph nodes, however, evaluation is limited due to the lack of contrast administration. 4.The right mainstem bronchus is partially opacified. The finding is nonspecific. Correlate clinically. Abdomen X-Ray 12/30/24 09:22 Impression: 1: Fecal impaction of the rectum with moderate gas in the colon. Labs Labs: Laboratory Results - last 24 hr 08/12/30/24 12/31/24 18:07 22:39 00:37 POC Capillary Glucose 80 99 108 H 12/31/24 12/31/24 06:17 11:51 POC Capillary Glucose 77 108 H
[2024-12-31] MEDS: AZITHROMYCIN 500 MG TABLET FEED TUBE (22:53)
[2025-01-01] VITALS (19 sets, daily range): BP systolic 94–101; BP diastolic 60–63; PULSE 85–112; RESP 18–24; TEMP 36.8; O2SAT 96–98
[2025-01-01] MEDS: METOCLOPRAMIDE HCL INJ 10 MG/2 ML VIAL IV PUSH ×5 (00:31→23:41)
[2025-01-01] MEDS: SCOPOLAMINE 1 MG PATCH 1 PATCH TRANSDERM (00:31)
[2025-01-01] MEDS: IPRATROPIUM 0.5 MG/ALBUTEROL SULFATE 2.5 MG AMPUL.NEB 3 ML INHALATION ×4 (02:38→20:37)
[2025-01-01] MEDS: CEFEPIME 2 GM in SODIUM CHLORIDE 0.9% IV 50 ML 100 ML IVPB ×3 (06:20→21:18)
--- NOTE | 2025-01-01 07:03 | P.CDI_ITS ---
CDI Query Clarification Request BMI: 20.9 Nutritional Diagnostic Statement: Please refer to the comprehensive nutrition assessment for further information. If you agree with diagnosis of Severe protein calorie malnutrition related to inadequate intake from enteral nutrition as evidenced by weight loss 20%/7 months, 15%/4 months; intakes <75% needs >1 month; severe muscle wasting and fat loss. Please specify severity if known: * Mild * Moderate * Severe * Other/Unknown <Cha Zuniga RN - Last Filed: 01/01/25 07:03> Provider Comments Severe protein calorie malnutrition <Souleymane Mukherjee MD - Last Filed: 01/04/25 08:38>
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
[2025-01-01] MEDS: AZITHROMYCIN 500 MG TABLET FEED TUBE (20:24)
[2025-01-02] VITALS (18 sets, daily range): BP systolic 98–128; BP diastolic 63–76; PULSE 75–128; RESP 17–20; TEMP 36.5–37.3; O2SAT 96–100
[2025-01-02] MEDS: IPRATROPIUM 0.5 MG/ALBUTEROL SULFATE 2.5 MG AMPUL.NEB 3 ML INHALATION ×4 (01:41→20:39)
[2025-01-02 05:13] LABS: Hematocrit 36.1 % (42.0-52.0); Hemoglobin 11.3 g/dL (14.0-18.0); Immature Granulocyte Percent A 0.2 % (0-0.5); Lymphocytes Absolute Auto 0.84 K/mm3 (0.9-3.2); Mean Corpuscular HGB Conc 31.3 g/dl (32-36); Mean Corpuscular Hemoglobin 25.7 pg (26-34); Mean Corpuscular Volume 82.0 fl (80-100); Nucleated Red Blood Cells Absolute Auto 0.000 K/mm3 (0.0-0.012); Nucleated Red Blood Cells Perc 0.0 % (0.0-0.2); Platelet Count Result 303 k/mm3 (150-375); Red Blood Count 4.40 M/mm3 (4.6-6.20); White Blood Count 4.8 K/mm3 (4.5-10.0)
[2025-01-02 05:34] LABS: Alanine Aminotransferase 31 U/L (6-50); Albumin Level 3.5 g/dL (3.5-5.1); Alkaline Phosphatase 77 U/L (38-126); Anion Gap 7 mmol/L (4-12); Aspartate Amino Transferase 36 U/L (17-59); Bilirubin,Total 0.3 mg/dL (0.2-1.3); Blood Urea Nitrogen 14 mg/dL (9-20); Calcium 9.1 mg/dL (8.4-10.2); Carbon Dioxide 25 mmol/L (22-30); Chloride 102 mmol/L (98-107); Estimated CRCL calculation 113 ml/min; Estimated Glomerular Filt Rate > 60; Glucose 92 mg/dL (65-110); Magnesium 2.0 mg/dL (1.6-2.3); Potassium 4.5 mmol/L (3.4-5.0); Sodium 134 mmol/L (137-145); Total Protein 7.6 g/dL (6.3-8.2)
[2025-01-02] MEDS: METOCLOPRAMIDE HCL INJ 10 MG/2 ML VIAL IV PUSH ×4 (05:41→23:28)
[2025-01-02] MEDS: CEFEPIME 2 GM in SODIUM CHLORIDE 0.9% IV 50 ML 100 ML IVPB ×3 (05:42→22:26)
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
--- NOTE | 2025-01-02 11:57 | PCNFU ---
Nutrition Follow-Up Complete: Severe protein calorie malnutrition related to inadequate intake from enteral nutrition as evidenced by weight loss 20%/7 months, 15%/4 months; intakes <75% needs >1 month; severe muscle wasting and fat loss Goal: Meet estimated nutrition needs Patient is progressing towards goal. We will continue current goal. Pt current nutrition is Jevity 1.5 at 60 ml/hr. Last recorded weight is 57.5 kg, up from 52.2 kg on admit. Bowel Motility: BM reported by physicist [employer] of 01/01. Labs Reviewed: Cr 0.61, Na 134, Hct 36.1, Hgb 11.3 Meds Noted: Reglan Skin: WNL Additional Notes: Patient current with g tube feedings of Jevity 1.5 at 60 ml/hr and tolerating per nursing. Total Nutrition: 1980 kcal/84 gm protein/1003 ml water. Spoke with Hospitalist today, recommend increasing flush once Na corrects would recommend full 150 ml flush q 4 hours. Monitoring weights, labs, skin, tube feeding tolerance, plan of care. Follow up Wednesday/Wednesday
[2025-01-03] VITALS (16 sets, daily range): BP systolic 98–157; BP diastolic 64–87; PULSE 78–111; RESP 12–24; TEMP 36.4–36.6; O2SAT 97–100
[2025-01-03] MEDS: IPRATROPIUM 0.5 MG/ALBUTEROL SULFATE 2.5 MG AMPUL.NEB 3 ML INHALATION ×4 (02:17→20:37)
[2025-01-03] MEDS: CEFEPIME 2 GM in SODIUM CHLORIDE 0.9% IV 50 ML 100 ML IVPB ×3 (04:57→21:53)
[2025-01-03] MEDS: METOCLOPRAMIDE HCL INJ 10 MG/2 ML VIAL IV PUSH ×2 (04:57→17:41)
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
[2025-01-04] VITALS (17 sets, daily range): BP systolic 106–123; BP diastolic 76–85; PULSE 86–111; RESP 16–24; TEMP 36.4–36.6; O2SAT 96–100
[2025-01-04] MEDS: METOCLOPRAMIDE HCL INJ 10 MG/2 ML VIAL IV PUSH ×2 (00:44→06:18)
[2025-01-04] MEDS: SCOPOLAMINE 1 MG PATCH 1 PATCH TRANSDERM (00:45)
[2025-01-04] MEDS: IPRATROPIUM 0.5 MG/ALBUTEROL SULFATE 2.5 MG AMPUL.NEB 3 ML INHALATION ×4 (02:01→21:49)
[2025-01-04] MEDS: CEFEPIME 2 GM in SODIUM CHLORIDE 0.9% IV 50 ML 100 ML IVPB ×3 (06:18→20:19)
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
[2025-01-04] MEDS: METOCLOPRAMIDE HCL 10 MG/10 ML SOLN UDC PO ×2 (12:35→18:07)
[2025-01-05] VITALS (19 sets, daily range): BP systolic 101–118; BP diastolic 76–81; PULSE 81–126; RESP 18–20; TEMP 36.5–36.7; O2SAT 94–100
[2025-01-05] MEDS: METOCLOPRAMIDE HCL 10 MG/10 ML SOLN UDC PO ×4 (00:06→17:15)
[2025-01-05] MEDS: IPRATROPIUM 0.5 MG/ALBUTEROL SULFATE 2.5 MG AMPUL.NEB 3 ML INHALATION ×4 (02:08→21:08)
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
[2025-01-05] MEDS: MAGNESIUM CITRATE 300 ML BTL 150 ML FEED TUBE (17:13)
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
[2025-01-05] MEDS: BISACODYL 10 MG SUPPOSITORY RECTAL (21:37)
[2025-01-06] VITALS (18 sets, daily range): BP systolic 100–127; BP diastolic 65–75; PULSE 99–124; RESP 18–24; TEMP 36.7–36.9; O2SAT 97–100
[2025-01-06] MEDS: METOCLOPRAMIDE HCL 10 MG/10 ML SOLN UDC PO ×4 (00:16→17:06)
[2025-01-06] MEDS: IPRATROPIUM 0.5 MG/ALBUTEROL SULFATE 2.5 MG AMPUL.NEB 3 ML INHALATION ×4 (02:52→20:24)
[2025-01-06 07:12] LABS: Hematocrit 38.7 % (42.0-52.0); Hemoglobin 11.7 g/dL (14.0-18.0); Mean Corpuscular HGB Conc 30.2 g/dl (32-36); Mean Corpuscular Hemoglobin 25.4 pg (26-34); Mean Corpuscular Volume 84.1 fl (80-100); Platelet Count Result 308 k/mm3 (150-375); Red Blood Count 4.60 M/mm3 (4.6-6.20); White Blood Count 5.1 K/mm3 (4.5-10.0)
--- NOTE | 2025-01-06 16:38 | PM.IMPN ---
Progress Note: A&P Assessment and Plan (1) Right lower lobe pneumonia: Qualifiers: Pneumonia type: due to unspecified organism Qualified Code(s): J18.9 - Pneumonia, unspecified organism Code(s): J18.9 - Pneumonia, unspecified organism Status: Acute Assessment and Plan: Has been afebrile and hemodynamically stable Completed cefepime Daily CBC/BMP Continue monitor monitor vital signs (2) Tracheocutaneous fistula following tracheostomy: Code(s): J95.04 - Tracheo-esophageal fistula following tracheostomy Status: Acute Assessment and Plan: Thick secretion noted Added Mucomyst to breakdown the thick secretion (3) Hemoptysis: Code(s): R04.2 - Hemoptysis Status: Acute Assessment and Plan: Resolved (4) Dysphagia: Qualifiers: Dysphagia type: unspecified Qualified Code(s): R13.10 - Dysphagia, unspecified Code(s): R13.10 - Dysphagia, unspecified Status: Acute Assessment and Plan: Feedings through PEG tube (5) Fecal impaction: Code(s): K56.41 - Fecal impaction Status: Acute Assessment and Plan: 01/06, KUB shows to large amount of stool in the distal sigmoid colon and rectum Had multiple bowel movement today but stated he has stool burden in the colon Add Senokot with MiraLax Continue to monitor Subjective Date/time seen: 01/06/25 16:38 Interval history: He had multiple bowel movement. KUB shows large stool in the colon. Increased bowel regimen. No fever or chill or diarrhea overnight. Exam Narrative: HEENT: PERRL, sclerae nonicteric, pharyngeal mucosa pink and intact NECK: No JVD, old trach site intact with thick section CHEST: Coarse BS throughout all wolfe. Trach collar in place. HEART: NL S1/S2, regular, no murmur ABDOMEN: firm bowel, BS+, soft, nontender, no mass, no bruits, G-tube site intact without any drainage/erythema around/from insertion site. EXTREMITIES: No cyanosis, edema, or clubbing, wear boots. NEUROLOGIC: Quadriplegia, track with his eyes MUSCULOSKELETAL: Spastic paralysis/contracture present. Objective Data Vital Signs Vital Signs: Vital Signs - 24 hr 01/05/25 20:00 01/05/25 20:00 01/05/25 20:36 Temperature 36.6 C Pulse Rate 112 H 111 H Respiratory Rate 20 Blood Pressure 115/81 Pulse Oximetry 99 Oxygen Delivery Room Air Fraction of Inspired Oxygen 01/05/25 21:09 01/05/25 21:16 01/05/25 21:21 Temperature Pulse Rate 98 107 H Respiratory Rate 20 20 Blood Pressure Pulse Oximetry 95 Oxygen Delivery Room Air Fraction of Inspired Oxygen 01/06/25 00:00 01/06/25 02:52 01/06/25 03:04 Temperature Pulse Rate 124 H 99 101 H Respiratory Rate 20 20 Blood Pressure Pulse Oximetry Oxygen Delivery Fraction of Inspired Oxygen 01/06/25 04:00 01/06/25 06:00 01/06/25 07:50 Temperature 36.8 C Pulse Rate 124 H 109 H Respiratory Rate 18 24 H Blood Pressure 127/75 Pulse Oximetry 99 99 Oxygen Delivery Room Air Fraction of Inspired Oxygen 21 01/06/25 07:55 01/06/25 08:03 01/06/25 12:02 Temperature Pulse Rate 116 H 99 111 H Respiratory Rate 24 H Blood Pressure Pulse Oximetry Oxygen Delivery Fraction of Inspired Oxygen 01/06/25 13:06 01/06/25 13:25 01/06/25 14:00 Temperature 36.9 C Pulse Rate 116 H 112 H 102 H Respiratory Rate 24 H 24 H 20 Blood Pressure 110/68 Pulse Oximetry 100 Oxygen Delivery Fraction of Inspired Oxygen Intake/Output Intake/Output: Intake & Output 01/03/25 01/04/25 01/05/25 01/06/25 23:59 23:59 23:59 23:59 Intake Total 947 818 1837 823 Output Total 1300 1300 [facility] -[phone] Meds/Results Medications: Active Medications Generic Name Dose Route Start Last Admin Trade Name Freq PRN Reason Stop Dose Admin Acetylcysteine 200 mg 01/06/25 20:00 Acetylcysteine 20% Inhal Soln 800 Mg/4 Ml Vial INHALATION Q6HRT JESSA Albuterol/Ipratropium 3 ml 12/29/24 02:00 01/06/25 13:05 Ipratropium 0.5 Mg/Albuterol Sulfate 2.5 Mg Ampul.Neb 3 Ml INHALATION 3 ml Q6HRT JESSA Administration Bisacodyl 10 mg 12/29/24 00:57 01/05/25 21:37 Bisacodyl 10 Mg Suppository RECTAL 10 mg DAILY PRN Administration Constipation Dextrose 12.5 gm 12/29/24 11:56 12/29/24 12:03 Dextrose 50% 25 Gm/50 Ml Syringe IV PUSH 12.5 gm PRN PRN Administration Hypoglycemia Protocol Glucose 15 gm 12/29/24 11:56 Glucose Oral Gel 15 Gm Of Glucse In 37.5 Gm Tube PO PRN PRN Hypoglycemia Protocol Dextrose 1,000 mls @ 100 mls/hr 12/29/24 11:56 Dextrose 5% 1,000 Ml IVPB PRN PRN Hypoglycemia Protocol Metoclopramide HCl 10 mg 01/04/25 12:00 01/06/25 11:03 Metoclopramide Hcl 10 Mg/10 Ml Soln Udc PO 10 mg Q6HR JESSA Administration Polyethylene Glycol 17 gm 12/29/24 00:51 Polyethylene Glycol 3350 17 Gm Powd.Pack FEED TUBE DAILY PRN Constipation Scopolamine 1 patch 12/29/24 00:55 01/04/25 00:45 Scopolamine 1 Mg Patch TRANSDERM 1 patch Q72H JESSA Administration Senna/Docusate Sodium 1 tab 01/06/25 21:00 Senna/Docusate Sodium Tablet FEED TUBE HS JESSA Radiology Results: ITS Impressions Chest CT 12/29/24 10:59 IMPRESSION: 1. Evaluation is significantly limited as detailed above. Consider a follow-up study with contrast for further assessment. 2. Moderate-sized consolidation with air bronchograms in the right upper lobe which extends from the right hilum to the pleura. In addition, there is a moderate to large consolidation with air bronchograms in the right lower lobe which extends from the right hilum to the pleura.The findings may be secondary to multilobar pneumonia, however, a malignant process is possible. A short-term follow-up chest CT in 3-5 days following treatment is recommended. Consider a PET/CT. 3. Possible enlarged right hilar and subcarinal lymph nodes, however, evaluation is limited due to the lack of contrast administration. 4.The right mainstem bronchus is partially opacified. The finding is nonspecific. Correlate clinically. Chest X-Ray 01/04/25 10:48 IMPRESSION: 1: Moderate-sized patchy opacities in the right lower lung. Differential includes atelectasis or pneumonia. Recommend follow-up to resolution is an underlying mass. Abdomen X-Ray 01/06/25 09:22 Impression: 1: Fecal impaction of the rectum and right colon. No significant change. Labs Labs: Laboratory Results - last 24 hr 01/02/25 01/05/25 01/06/25 04:10 23:21 05:50 WBC RBC Hgb Hct MCV MCH MCHC RDW Plt Count MPV POC Capillary Glucose 91 89 129 H 01/06/25 01/06/25 07:02 11:57 WBC 5.1 RBC 4.60 Hgb 11.7 L Hct 38.7 L MCV 84.1 MCH 25.4 L MCHC 30.2 L RDW 15.0 H Plt Count 308 MPV 8.7 POC Capillary Glucose 110 H Quality VTE Prophylaxis VTE prophylaxis: mechanical ordered
[2025-01-06 16:52] LABS: Alanine Aminotransferase 127 U/L (6-50); Albumin Level 3.7 g/dL (3.5-5.1); Alkaline Phosphatase 104 U/L (38-126); Anion Gap 8 mmol/L (4-12); Aspartate Amino Transferase 72 U/L (17-59); Bilirubin,Total 0.2 mg/dL (0.2-1.3); Blood Urea Nitrogen 23 mg/dL (9-20); Calcium 9.8 mg/dL (8.4-10.2); Carbon Dioxide 29 mmol/L (22-30); Chloride 103 mmol/L (98-107); Estimated CRCL calculation 99 ml/min; Estimated Glomerular Filt Rate > 60; Glucose 95 mg/dL (65-110); Potassium 4.8 mmol/L (3.4-5.0); Sodium 140 mmol/L (137-145); Total Protein 7.9 g/dL (6.3-8.2)
[2025-01-06] MEDS: ACETYLCYSTEINE 20% INHAL SOLN 800 MG/4 ML VIAL 200 MG INHALATION (20:24)
[2025-01-06] MEDS: SENNA/DOCUSATE SODIUM TABLET 1 TAB FEED TUBE (21:49)
[2025-01-07] VITALS (10 sets, daily range): BP systolic 105; BP diastolic 73; PULSE 67–116; RESP 18–20; TEMP 36.7; O2SAT 91–98
[2025-01-07] MEDS: SCOPOLAMINE 1 MG PATCH 1 PATCH TRANSDERM (00:27)
[2025-01-07] MEDS: METOCLOPRAMIDE HCL 10 MG/10 ML SOLN UDC PO ×3 (00:27→12:57)
[2025-01-07] MEDS: ACETYLCYSTEINE 20% INHAL SOLN 800 MG/4 ML VIAL 200 MG INHALATION ×2 (01:53→08:15)
[2025-01-07] MEDS: IPRATROPIUM 0.5 MG/ALBUTEROL SULFATE 2.5 MG AMPUL.NEB 3 ML INHALATION ×2 (01:53→08:15)
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
== END 2025-01-07 14:35 | disposition home or self-care (01) | DRG 177 ==
LOC: ANHED 17:47 → ANHIMU 22:01 → ANH2MED 12-30 13:25
PROVIDERS: Internal Medicine; Admitting Provider Internal Medicine; Emergency Provider Physician Assistant; PCP Emergency Medicine; Visit Provider Student in an Organized Health Care Education/Training Program
DX: J69.0 Pneumonitis due to inhalation of food and vomit (principal); E43 Unspecified severe protein-calorie malnutrition; G82.50 Quadriplegia, unspecified; R04.2 Hemoptysis; J95.04 Tracheo-esophageal fistula following tracheostomy; J18.9 Pneumonia, unspecified organism; J04.10 Acute tracheitis without obstruction; G47.33 Obstructive sleep apnea (adult) (pediatric); K56.41 Fecal impaction; I10 Essential (primary) hypertension; R13.10 Dysphagia, unspecified; Z20.822 Contact with and (suspected) exposure to COVID-19; X95.9XXS Assault by unspecified firearm discharge, sequela; Z86.73 Personal history of transient ischemic attack (TIA), and cerebral infarction without residual deficits; Z87.820 Personal history of traumatic brain injury; Z87.891 Personal history of nicotine dependence; Z93.1 Gastrostomy status; Z68.20 Body mass index [BMI] 20.0-20.9, adult
CPT/HCPCS: 36415; 71045; 71250; 74018; 80048; 80053; 82565; 82948; 83735; 85025; 85027; 85610; 85730; 87040; 87070; 87205; 87637; 87641; 94640; 96365; 99285; A9270; J0456; J0692; J2185; J2765; J3373; J7030; J7050